=== PATIENT | male | born 1945 | race Hispanic/Latino ===

== ENCOUNTER 2018-08-04 07:15 | Day surgery (SDC) | payer OTHER ==
[2018-08-04] MEDS ORDERED: PHENYLEPHRINE 10% OPTH 5ML OPTH ONE ×2 (08:10→08:15)
[2018-08-04] MEDS ORDERED: EPINEPHRINE/PF 1 MG/ML AMP ONE (08:11)
[2018-08-04] MEDS ORDERED: DUOVISC 1 KIT OPTH ONE (08:11)
[2018-08-04] MEDS ORDERED: BALANCED SALT IRRIG PLAIN 500 ML BTL IRR ONE (08:11)
[2018-08-04] MEDS ORDERED: MOXIFLOXACIN HCL 10 DROPS/ML **OR USE OPTH ONE (08:11)
[2018-08-04] MEDS ORDERED: NS 0.9% VIAL 10 ML ONE (08:11)
[2018-08-04] MEDS ORDERED: CYCLOPENTOLATE 1% OPTH 2 ML ONE (08:13)
[2018-08-04] MEDS ORDERED: LIDOCAINE 2% MPF 5 ML VIAL ONE ×2 (08:13→08:54)
[2018-08-04] MEDS ORDERED: BUPIVACAINE 0.25% PF 30 ML VIAL ONE (08:13)
[2018-08-04] MEDS ORDERED: TETRACAINE HCL 0.5% 2ML OPTH ONE (08:13)
[2018-08-04] MEDS ORDERED: NA CHLORIDE 0.9% 500 ML ONE (08:14)
[2018-08-04] MEDS ORDERED: PHENYLEPHRINE 10% OPTH 5ML ONE (08:14)
[2018-08-04] MEDS ORDERED: CYCLOPENTOLATE 1% OPTH 2 ML OPTH ONE ×2 (08:15→08:20)
[2018-08-04] MEDS ORDERED: PROPOFOL 200 MG/20 ML VIAL IV ONE (08:54)
[2018-08-04] MEDS ORDERED: GLYCOPYRROLATE 0.2 MG/ML SYR ONE (09:37)
--- NOTE | 2018-08-04 09:53 | P.BOP ---
Preoperative diagnosis: Nuclear sclerotic cataract OD Postoperative diagnosis: Same Primary procedure: Phacoemulsification with IOL OD Estimated blood loss: None Anesthesia: Local (Subtenon's infusion with anesthesia for cataract surgery) Complications: None Implants: SN60WF +24.0 Transferred to: Other (Day surgery) Condition: Good
[2018-08-04 10:10] VITALS: BP 178/82; TEMP 96.7; O2SAT 100
--- NOTE | 2018-08-04 20:50 | OP ---
Date of Procedure: 08/04/2018 Surgeon: Melida Cazares MD Anesthesiologist: Dexter Al CRNA and Serge Morin MD. Preoperative Diagnosis: Nuclear sclerotic cataract, right eye. Operation Performed: Phacoemulsification with intraocular lens implant, right eye. Anesthesia: Per cataract surgery. Complications: None. Description Of Procedure: In day surgery, the patient was prepped with Betadine and draped. A conjunctival incision was made in the inferior nasal quadrant with Tracee scissors. A sub-Tenon block consisting of a 1:1 mixture of 2% Xylocaine and 0.25% bupivacaine was placed through the conjunctival incision with a blunt cannula. A Honan balloon was placed over the eye and the patient was transferred to the operating room. In the operating room the patient was prepped and draped in the usual sterile fashion for ophthalmic surgery. A lid speculum was placed in the right eye. Two paracentesis sites were made superiorly and inferiorly in the limbal cornea. Viscoat was placed in the anterior chamber and a crescent blade was used to make a corneal groove and tunnel, and a keratome was used to enter the anterior chamber. Provisc was placed in the anterior chamber and a 360 degree capsulotomy was performed with a cystitome. The lens was hydrodissected with BSS and rotated freely. The lens was removed with a stop and chop technique. 17.04 phaco CDE was used to remove the lens. Residual cortex was removed with the irrigation and aspiration. Provisc was placed in the capsular bag. A SN60WF +24.0 lens was placed in the capsular bag without complications. Irrigation and aspiration were used to remove residual viscoelastic. The paracentesis sites were hydrated with BSS. The wound and paracentesis sites were inspected and found to be watertight. Vigamox 0.07 cc was placed intracamerally at the end of the procedure. The eye was irrigated with balanced salt solution. The eye was patched with a soft cotton patch and Alva metal shield. The patient was returned to day surgery in good condition. Comments: Epinephrine 1:5000 was placed in the anterior chamber prior to Viscoat. Discharge Instructions: Mr. Giles is discharged to home in good condition. He is to follow up with Dr. Cazares at 3 today and then in the morning. DEVON/RICHA Voice ID: [id number] Report ID: [id number] MTDD
== END 2018-08-04 10:25 | disposition home or self-care (01) ==
LOC: OR 07:15
PROVIDERS: ATTEND Ophthalmology Retina Specialist
PROC: 08RJ3JZ Replacement of Right Lens with Synthetic Substitute, Percutaneous Approach (ICD-10-PCS; principal; 2018-08-04 09:05)
DX: H25.11 Age-related nuclear cataract, right eye (principal); H40.2230 Chronic angle-closure glaucoma, bilateral, stage unspecified; H04.123 Dry eye syndrome of bilateral lacrimal glands; I10 Essential (primary) hypertension; Z88.6 Allergy status to analgesic agent; Z87.891 Personal history of nicotine dependence; Z86.73 Personal history of transient ischemic attack (TIA), and cerebral infarction without residual deficits; Z83.3 Family history of diabetes mellitus
CPT/HCPCS: 66984; J0171; J2704; V2630

== ENCOUNTER 2018-10-14 11:35 | Observation (INO) | payer OTHER ==
[2018-10-14 13:18] VITALS: BMI 31.2
[2018-10-14 15:32] LABS: Absolute Lymphocytes (CBC) 1.9 K/uL (0.7-4.9); Absolute Monocytes 0.4 K/uL (0.1-1.3); Absolute Neutrophil 2.6 K/uL (1.8-8.0); Basophils % 0.9 % (0-1.3); Eosinophils % 2.5 % (0-4.4); Hematocrit 28.3 % (39.6-49.0); Lymphocytes % 37.9 % (15.3-44.8); MPV 8.2 fL (7.6-11.3); RBC Red Blood Cell Count 4.01 M/uL (4.33-5.43)
[2018-10-14 15:50] LABS: Albumin 3.6 g/dL (3.4-5.0); Bilirubin Total 0.2 mg/dL (0.2-1.0); Potassium 4.2 mmol/L (3.5-5.1); Protein, Total 7.1 g/dL (6.4-8.2)
[2018-10-14 16:59] LABS: Urine Appearance CLEAR; Urine Bilirubin NEGATIVE (NEG); Urine Blood NEGATIVE (NEG); Urine Color YELLOW; Urine Glucose NEGATIVE (NEG); Urine Protein NEGATIVE (NEG); Urine Urobilinogen 0.2 mg/dL (0.2-1.0)
[2018-10-14] MEDS: NACHLORIDE 0.45% 1,000 ML IV SCH (17:01)
--- NOTE | 2018-10-14 17:16 | RAD REPORT ---
EXAM DESCRIPTION: CT - Abdomen Pelvis W Contrast - 10/14/2018 4:45 pm CLINICAL HISTORY: Abdominal pain, left flank pain, history of gastric ulceration COMPARISON: CT May 2013 and January 2008 TECHNIQUE: Biphasic, helical CT imaging of the abdomen and pelvis was performed following 100 ml non -ionic IV contrast. Oral contrast was given. All CT scans are performed using dose optimization technique as appropriate and may include automated exposure control or mA/KV adjustment according to patient size. FINDINGS: No acute lung base finding. There is a small granuloma posterior gutter on the right and s mall calcified plaque posterior left. Heart size is upper normal. No pericardial thickening or effusi on. Liver shows a mild diffuse fatty infiltration pattern no focal liver lesion or capsular nodularity. N o gallbladder or biliary tree abnormality. No splenic abnormality seen. No acute pancreatic or peripa ncreatic process seen. Slightly nodular portion of the pancreatic parenchyma abutting the duodenal C- loop has not changed back to 2007. Symmetric renal function is seen with no hydronephrosis or suspicious renal mass. No pyelonephritis o r acute parenchymal process. No bladder abnormalities. No acute adrenal finding. Patient has a 2.6 ce ntimeter cyst in the anterior mid left kidney. This has increased in size over this serial studies bu t shows no worrisome or aggressive characteristics. Incidental note made of retroaortic left renal ve in. No significant prostate or seminal vesicle finding. No dilated bowel loops or bowel wall thickening. Appendix is normal. Patient has moderately prominent diverticulosis in the tortuous sigmoid colon. No acute or active colon process identifiable. No free air, free fluid or inflammatory stranding. No hernia, mass or bulky lymphadenopathy. Disc and bone degenerative changes are present. This is most notable at L5-S1. No acute or pathologic bone process seen. IMPRESSION: No obstructing calculus, mass or other abnormality to explain left flank pain symptoms. Patient has moderate sigmoid diverticulosis but no diverticulitis or acute GI process. Mild fatty infiltration pattern to the liver.
[2018-10-14 17:34] LABS: Urine Microscopic Reflex NO UMIC
[2018-10-14] MEDS ORDERED: ATORVASTATIN 20 MG TAB PO SCH (21:00)
[2018-10-14] MEDS ORDERED: HOME MED 1 EA UNK (Travoprost (Benzalkonium) [Travatan 0.004% Eye Drop] 1 GTT) EACH EYE SCH (21:00)
[2018-10-14] MEDS ORDERED: HOME MED 1 EA UNK (Cyclosporine [Restasis] 1 DROP) EACH EYE SCH (21:00)
[2018-10-14] MEDS ORDERED: HOME MED 1 EA UNK (Olmesartan Medoxomil [Olmesartan Medoxomil] 40 MG) PO SCH (21:00)
[2018-10-15 01:04] VITALS: O2SAT 99
[2018-10-15] MEDS: NACHLORIDE 0.45% 1,000 ML IV SCH (01:31)
[2018-10-15] MEDS ORDERED: VALSARTAN 80 MG TAB PO SCH (09:00)
[2018-10-15] MEDS ORDERED: CLOPIDOGREL 75 MG TABLET PO SCH (09:00)
[2018-10-15 10:18] VITALS: BP 142/63; TEMP 97.9
--- NOTE | 2018-10-15 19:12 | HP ---
Date of Admission: 10/14/2018 Chief Complaint: Left lower quadrant pain. History Of Present Illness: A 73-year-old male was brought to the office with left lower quadrant pa in and tenderness. The patient initially was thought to have diverticulitis. After admission, daryl claudio had a CAT scan. There was no evidence of diverticulitis. However, he had anemia, 8.8 g. The pat ient denies any fresh blood seen with the stools. The patient claims to have had a colonoscopy 3 yea rs ago. Past Medical History: Positive for hypertension, osteoarthritis, history of TIA. Family History: Blood pressure problem. Allergies: ASPIRIN. Review of Systems: No chest pain or shortness of breath. Physical Examination: General: Revealed a 73-year-old male, in mild pain. HEENT: Otherwise negative. Neck: Supple. JVD negative. Chest: Clear. Heart: Regular. Abdomen: Soft, except for left lower quadrant tenderness. No palpable mass. Extremities: No edema. Laboratory Data: Hemoglobin 8.8. Iron low at 16. B12 level normal. Assessment: 1.Left lower quadrant pain. 2.Anemia, moderate. 3.Hypertension. 4.Osteoarthritis. 5.History of transient ischemic attack. Plan: The patient does not have any active infection. He will be discharged. He is going to need G I workup for his iron deficiency anemia. This was explained to the family as well as the patient. H e will be given iron supplements for the time being and outpatient workup will be arranged. ADALID/RICHA Voice ID: [id number]
== END 2018-10-15 10:36 | disposition home or self-care (01) ==
LOC: 2ND 12:44
PROVIDERS: ADMIT Internal Medicine; ATTEND Internal Medicine
DX: R10.32 Left lower quadrant pain (principal); D64.9 Anemia, unspecified; I10 Essential (primary) hypertension; M19.90 Unspecified osteoarthritis, unspecified site; Z86.73 Personal history of transient ischemic attack (TIA), and cerebral infarction without residual deficits; Z88.6 Allergy status to analgesic agent
CPT/HCPCS: 85025; 36415; 87493; 81003; 82607; 83540; 80053; 84466; 74177; Q9967; G0378 ×2

== ENCOUNTER 2019-10-21 08:53 | Emergency (ER) | payer OTHER ==
--- OUTSIDE RECORDS SUMMARY | 2019-10-21 08:56 | XMS REPORT ---
:1945 [facility] Address [address] [place] [address] Dr. Strickland [address] [place] [address] Care Team Providers Name Role Phone Unavailable Unavailable Unavailable Problems This patient has no known problems. Allergies, Adverse Reactions, Alerts This patient has no known allergies or adverse reactions. Medications This patient has no known medications.
--- OUTSIDE RECORDS SUMMARY | 2019-10-21 08:56 | XMS REPORT | Summary of Care ---
:1945 Author Organization [facility] - Health Address [address] [place] [address] Care Team Providers Name Role Phone Willy Montez MD Primary Care Provider Encounter Details Date Type Department Care Team Description 04/22/2019 Orders Only [facility] Doctor Unassigned, No [address] [facility] [place] [address] [address] [place] [address] Allergies No Known Allergiesdocumented as of this encounter (statuses as of 04/23/2019) Medications Medication Sig Dispensed Refills Start Date End Date Status atorvastatin 20 mg Take 20 mg by 0 Active tablet mouth at bedtime. clopidogrel 75 mg tablet Take 75 mg by 0 Active mouth daily. valsartan 320 mg tablet Take 320 mg by 0 Active mouth daily. documented as of this encounter (statuses as of 04/23/2019) Active Problems No known active problemsdocumented as of this encounter (statuses as of 2018) Social History Tobacco Use Types Packs/Day Years Used Date Former Smoker Smokeless Tobacco: Never Used Sex Assigned at Date Recorded Not on file Job Start Date Occupation Industry Not on file Not on file Not on file Travel History Travel Start Travel End No recent travel history available. documented as of this encounter Last Filed Vital Signs Not on filedocumented in this encounter Plan of Treatment Health Maintenance Due Date Last Done Comments DTaP,Tdap,and Td Vaccines (1 - Tdap) 1962 COLONOSCOPY 1993 Zoster Recombinant Vaccine (SHINGRIX) (1 of 2) 1993 LUNG CANCER SCREEN: Recommended for age 55-80 with 30 + 1998 pack year history Medicare Wellness Visit 2008 PNEUMOCOCCAL VACCINES 65+ (1 of 2 - PCV13) 2008 INFLUENZA VACCINE (#1) 2019 documented as of this encounter Procedures Procedure Name Priority Date/Time Associated Diagnosis DAY SURGERY - ADC Routine 04/22/2019 12:01 AM CDT documented in this encounter Results Not on filedocumented in this encounter Insurance Payer Benefit Plan / Subscriber ID Effective Dates Phone Address Type Group MEDICARE MEDICARE PART xxxxxxxxxxx 2008-Tonya [phone] [address] Medicare [address] [place] [id number] [place] [id number] documented as of this encounter
--- OUTSIDE RECORDS SUMMARY | 2019-10-21 08:56 | XMS REPORT | Summary of Care ---
:1945 Author Organization [facility] Address [address] [place] [address] Care Team Providers Name Role Phone Willy Montez MD Primary Care Provider Reason for Visit Auth/Cert Status Reason Specialty Diagnoses / Procedures Referred By Contact Referred To Contact Surgery Diagnoses Iron deficiency anemia secondary to blood loss (chronic) Anemia, Diverticulosis D50.0 (ICD-10-CM) - Iron deficiency anemia secondary to blood loss (chronic) Adc Pre/Pacu/Post Procedures IN EGD TRANSORAL BIOPSY SINGLE/MULTIPLE ESOPHAGOGASTRODUODENOSCOPY 05016 - [place] EGD TRANSORAL BIOPSY SINGLE/MULTIPLE [address] [place] [address] [place] [address] Encounter Details Date Type Department Care Team Description 04/22/2019 Hospital Encounter [facility] [address] [facility] [address] [facility] [place] [address] [id number] [place] [id number] Allergies No Known Allergiesdocumented as of this encounter (statuses as of 04/22/2019) Medications Medication Sig Dispensed Refills Start Date End Date Status atorvastatin 20 mg Take 20 mg by 0 Active tablet mouth at bedtime. clopidogrel 75 mg tablet Take 75 mg by 0 Active mouth daily. valsartan 320 mg tablet Take 320 mg by 0 Active mouth daily. documented as of this encounter (statuses as of 04/22/2019) Active Problems No known active problemsdocumented as [...] of this encounter Last Filed Vital Signs Vital Sign Reading Time Taken Comments Blood Pressure 140/73 04/22/2019 8:42 AM CDT Pulse 56 04/22/2019 8:42 AM CDT Temperature 36.3 C (97.4 F) 04/22/2019 8:27 AM CDT Respiratory Rate 16 04/22/2019 8:42 AM CDT Oxygen Saturation 99% 04/22/2019 8:42 AM CDT Inhaled Oxygen Concentration - - Weight 91.2 kg (201 lb) 04/17/2019 11:00 AM CDT Height 162.6 cm (5' 4") 04/17/2019 11:00 AM CDT Body Mass Index 34.5 04/17/2019 11:00 AM CDT documented in this encounter Discharge Instructions Va Richards RN - 04/22/2019EGD DISCHARGE INSTRUCTIONS 1. Do not eat or drink until the sensation in your throat returns. Test your ability to drink withwater before eating solids. Lozenges are helpful for throat tenderness. 2. DO NOT DRIVE or operate machinery for the rest of the day. 3. Mild abdominal discomfort may result from procedure, but this should disappear within several hours. Notify your physician/nurse if you have persistent pain for more than 6 hours. Tenderness or abdominal distention. 4. Belching or passing gas per rectum frequently occurs during the first few hours after the examination. Walking will often help relieve distention or gas pains. 5. Notify your physician/nurse if your heart rate becomes unusually rapid, if you experience shortness of breath, dizziness fever greater than 101.0F.; or vomiting blood or experience chest pains or have any concerns at all. 6. Tenderness may occur in vein where medication was given. Notify your physician /nurse should fever, swelling, redness of the arm/hand, or pain in the armpit occurs. 7. Many patients feel quite tired following this procedure. You should rest and recuperate for several hours. 8. Continue to take all medications as prescribed until your follow up appointment. 9. Ask nurse for assistance in ambulating. 10. If you cannot reach your physician for problems go to the nearest emergency room. documented in this encounter Plan of Treatment Name Type Priority Associated Diagnoses Order Schedule EKG-12 LEAD ROUTINE HEART STATION Routine ONCE for 1 Occurrences starting 04/22/2019 until 04/22/2019 SURGICAL PATHOLOGY LAB Routine ONCE for 1 EXAM Occurrences starting 04/22/2019 Health Maintenance Due Date Last Done Comments [...] Procedures Procedure Name Priority Date/Time Associated Diagnosis Comments EGD (ENDO) Routine 04/22/2019 7:55 AM CDT documented in this encounter Results Not on filedocumented in this encounter Administered Medications Medication Order MAR Action Action Date Dose Rate Site FENTanyl PF (SUBLIMAZE (PF)) injection 25 mcg 25 mcg, Slow IV Push, Q5MIN PRN, 4 doses, Starting Sat04/22/19 at 0819, Until Discontinued, Routine, Pain (scale 4-6), PACU FENTanyl PF (SUBLIMAZE (PF)) injection 25 mcg 25 mcg, Slow IV Push, Q5MIN PRN, 4 doses, Starting Sat04/22/19 at 0819, Until Discontinued, Routine, Pain (scale 7-10), PACU ondansetron (ZOFRAN (PF)) injection 4 mg 4 mg, Slow IV Push, PRN, 1 dose, Starting Sat04/22/19 at 0819, Until Discontinued, Routine, Nausea and Vomiting (N/V), PACU simethicone (GAS RELIEF) 40 mg/0.6 mL drops Given 04/22/2019 8:01 AM CDT 0.6 mL PRN, Starting Sat04/22/19 at 0801, Until Discontinued, Routine, Intra-op water for irrigation irrigation solution Given 04/22/2019 8:02 AM CDT 1,000 mL PRN, Starting Sat04/22/19 at 0802, Until Discontinued, Routine, Intra-op Medication Order MAR Action Action Date Dose Rate Site lactated ringers IV infusion New Bag 04/22/2019 6:42 AM CDT 1,000 mL 20 mL /hr 1,000 mL at 20 mL/hr, 1,000 mL, IV Infusion, ONCE, 1 dose, 04/22/19 at 0630, Routine, DSU Pre-op documented in this encounter Insurance Payer Benefit Plan / Subscriber ID Effective Dates Phone Address Type Group MEDICARE MEDICARE PART xxxxxxxxxxx 2008-Tonya [phone] [address] Medicare A & B nt 2 [id number] [place] [id number] documented as of this encounter
--- OUTSIDE RECORDS SUMMARY | 2019-10-21 08:56 | XMS REPORT | Summary of Care ---
:1945 Author Organization [facility] - Health Address [address] [place] [address] Care Team Providers Name Role Phone Willy Montez MD Primary Care Provider Reason for Visit Auth/Cert Status Reason Specialty Diagnoses / Procedures Referred By Contact Referred To Contact Surgery Diagnoses Iron deficiency anemia secondary to blood loss (chronic) Anemia, Diverticulosis D50.0 (ICD-10-CM) - Iron deficiency anemia secondary to blood loss (chronic) Adc Pre/Pacu/Post Procedures [place] EGD TRANSORAL BIOPSY SINGLE/MULTIPLE ESOPHAGOGASTRODUODENOSCOPY [address] - [place] EGD TRANSORAL BIOPSY SINGLE/MULTIPLE [address] [facility] [place] Felder [address] Encounter Details Date Type Department Care Team Description 04/22/2019 Anesthesia [facility] Jaden Messer [facility] [address] [facility] [place] [address] [place] [address] [phone] Allergies No Known Allergiesdocumented as of this [...] (#1) 2019 documented as of this encounter Results Not on filedocumented in this encounter Administered Medications Medication Order MAR Action Action Date Dose Rate Site lactated ringers IV infusion New Bag 04/22/2019 6:42 AM CDT CONTINUOUS PRN, Starting Sat04/22/19 at 0642, Until Sat04/22/19 at 0814, Routine, Intra-op lidocaine 1% (XYLOCAINE) 100 mg/10 mL (1 %) Given 04/22/2019 7:59 AM CDT 10 mL injection ONCE INTRA PROCEDURE, Starting Sat04/22/19 at 0759, Until Sat04/22/19 at 0814, Routine, Intra-op propofol injection Given 04/22/2019 8:00 AM CDT 90 mg ONCE INTRA PROCEDURE, Starting Sat04/22/19 at 0800, Until Sat04/22/19 at 0814, Routine, Intra-op documented in this encounter Insurance Payer Benefit Plan / Subscriber ID Effective Dates Phone Address Type Group MEDICARE MEDICARE PART xxxxxxxxxxx 2008-Prese [phone] [address] Medicare A & B 2 [id number] [place] [id number] documented as of this encounter
--- NOTE | 2019-10-21 11:30 | ER ---
Nurse's Notes [facility] Name: Oleg Giles Age: 74 yrs Sex: Male : 1945 Arrival Date: 10/21/2019 Time: 08:55 Bed 15 Private MD: Willy Deshpande R Diagnosis: Perineum Bleeding - Resolved Presentation: 10/20 09:30 Chief complaint: Patient states: Took a shower this morning and noticed blood in ss underwear. Pt states when he got out of the shower he noticed blood on testicles. noticed wetness near feet after urinating and noticed blood. pt reports no trouble urinating. Pt also reports feeling light headed. Coronavirus screen: The patient has NOT traveled to a country currently being monitored by the [facility] within the last 14 days. The patient has NOT had contact with any known and/or suspected case of coronavirus. Proceed with normal triage procedures. Ebola Screen: Patient negative for fever greater than or equal to 101.5 degrees Fahrenheit, and additional compatible Ebola Virus Disease symptoms Patient denies exposure to infectious person. Patient denies travel to an Ebola-affected area in the 21 days before illness onset. No symptoms or risks identified at this time. Initial Sepsis Screen: Does the patient meet any 2 criteria? No. Patient's initial sepsis screen is negative. Does the patient have a suspected source of infection? No. Patient's initial sepsis screen is negative. Risk Assessment: Do you want to hurt yourself or someone else? Patient reports no desire to harm self or others. 09:30 Method Of Arrival: Ambulatory 09:30 Method Of Arrival: Ambulatory 09:30 Acuity: ALEXANDREA 3 ss Triage Assessment: 09:30 General: Appears in no apparent distress. comfortable, Behavior is calm, cooperative, bp appropriate for age. Pain: Denies pain. EENT: No deficits noted. Neuro: No deficits noted. Cardiovascular: No deficits noted. Respiratory: No deficits noted. GI: No signs and/or symptoms were reported involving the gastrointestinal system. : Reports HEMATURIA. Derm: No deficits noted. Musculoskeletal: No deficits noted. Historical: - Allergies: 11:27 Aspirin; bp - Immunization history:: Adult Immunizations unknown. - Social history:: Smoking status: Patient denies any tobacco usage or history of. Screenin:30 Abuse screen: Denies threats or abuse. Denies injuries from another. Nutritional bp screening: No deficits noted. 09:30 Tuberculosis screening: No symptoms or risk factors identified. Fall Risk None bp identified. Assessment: 09:30 General: SEE TRIAGE NOTE. bp 11:29 Reassessment: MD AT B/S FOR EVAL. NO HEMATURIA NOTED IN UOP, NO GENITOURINARY S/S. bp 11:49 Reassessment: PT D/C HOME AMBULATORY, DX WITH RESOLVED BLEEDING. bp Vital Signs: 09:30 BP 142 / 77; Pulse 79; Resp 18; Temp 97.6; Pulse Ox 99% on R/A; Weight 86.18 kg (R); ss Height 5 ft. 5 in. (165.10 cm); Pain 0/10; 11:30 BP 139 / 75; Pulse 75; Resp 17; Temp 97.8; Pulse Ox 99% ; bp 09:30 Body Mass Index 31.62 (86.18 kg, 165.10 cm) ED Course: 08:55 Patient arrived in ED. mr 08:56 Willy Deshpande MD is Private Physician. mr 09:30 Arm band placed on. bp 09:30 Patient has correct armband on for positive identification. Bed in low position. Call bp light in reach. Side rails up X2. Adult w/ patient. 09:34 Triage completed. ss 10:33 Korey Melgar MD is Attending Physician. kdr 10:39 Taz Vega, DI is Primary Nurse. bp 11:27 Willy Deshpande MD is Referral Physician. kdr 11:30 No provider procedures requiring assistance completed. Patient did not have IV access bp during this emergency room visit. Administered Medications: No medications were administered Outcome: 11:29 Discharge ordered by . kdr 11:49 Discharged to home ambulatory. bp 11:49 Condition: stable 11:49 Discharge instructions given to patient, Instructed on discharge instructions, follow up and referral plans. medication usage, Demonstrated understanding of instructions, follow-up care. 11:50 Patient left the ED. bp Signatures: Korey Melgar MD MD kdr Rivera, Lyric mr LubinLora, RN RN ss Taz Vega RN RN bp
--- NOTE | 2019-10-21 11:31 | EDPHYS ---
Physician Documentation [facility] Name: Oleg Giles Age: 74 yrs Sex: Male : 1945 Arrival Date: 10/21/2019 Time: 08:55 Bed 15 Private MD: Willy Deshpande R ED Physician Korey Melgar HPI: 10/20 12:58 This 74 yrs old Male presents to ER via Ambulatory with complaints of bleeding kdr from his perineal area - resolved. 12:58 The patient presents with The patient states that he was in the shower and noticed kdr profuse BRB from his perineal area.. 10/21 07:07 Onset: The symptoms/episode began/occurred acutely, just prior to arrival. Modifying kdr factors: The symptoms are alleviated by nothing, the symptoms are aggravated by nothing. Associated signs and symptoms: The patient has no apparent associated signs or symptoms. Severity of symptoms: At their worst the symptoms were mild, in the emergency department the symptoms have resolved. The patient has not experienced similar symptoms in the past. The patient has not recently seen a physician. Historical: - Allergies: 10/20 11:27 Aspirin; bp - Immunization history:: Adult Immunizations unknown. - Social history:: Smoking status: Patient denies any tobacco usage or history of. ROS: 10/21 07:13 Constitutional: Negative for fever, chills, and weight loss, Eyes: Negative for injury, kdr pain, redness, and discharge, ENT: Negative for injury, pain, and discharge, Neck: Negative for injury, pain, and swelling, Cardiovascular: Negative for chest pain, palpitations, and edema, Respiratory: Negative for shortness of breath, cough, wheezing, and pleuritic chest pain, Abdomen/GI: Negative for abdominal pain, nausea, vomiting, diarrhea, and constipation, Back: Negative for injury and pain, : Negative for injury, bleeding, discharge, and swelling, MS/Extremity: Negative for injury and deformity, Skin: Negative for injury, rash, and discoloration, Neuro: Negative for headache, weakness, numbness, tingling, and seizure activity. Psych: Negative for depression, anxiety, suicide ideation, homicidal ideation, and hallucinations, Allergy/Immunology: Negative for hives, rash, and allergies, Endocrine: Negative for neck swelling, polydipsia, polyuria, polyphagia, and marked weight changes, Hematologic/Lymphatic: Negative for swollen nodes, abnormal bleeding, and unusual bruising. Exam: 07:13 Constitutional: This is a well developed, well nourished patient who is awake, alert, kdr and in no acute distress. Head/Face: Normocephalic, atraumatic. Eyes: Pupils equal round and reactive to light, extra-ocular motions intact. Lids and lashes normal. Conjunctiva and sclera are non-icteric and not injected. Cornea within normal limits. Periorbital areas with no swelling, redness, or edema. Neck: Trachea midline, no thyromegaly or masses palpated, and no cervical lymphadenopathy. Supple, full range of motion without nuchal rigidity, or vertebral point tenderness. No Meningismus. Chest/axilla: Normal chest wall appearance and motion. Nontender with no deformity. No lesions are appreciated. Cardiovascular: Regular rate and rhythm with a normal S1 and S2. No gallops, murmurs, or rubs. Normal PMI, no JVD. No pulse deficits. Respiratory: Lungs have equal breath sounds bilaterally, clear to auscultation and percussion. No rales, rhonchi or wheezes noted. No increased work of breathing, no retractions or nasal flaring. Abdomen/GI: Soft, non-tender, with normal bowel sounds. No distension or tympany. No guarding or rebound. No evidence of tenderness throughout. Back: No spinal tenderness. No costovertebral tenderness. Full range of motion. Male : Normal genitalia with no discharge or lesions. Skin: Warm, dry with normal turgor. Normal color with no rashes, no lesions, and no evidence of cellulitis. MS/ Extremity: Pulses equal, no cyanosis. Neurovascular intact. Full, normal range of motion. Neuro: Awake and alert, GCS 15, oriented to person, place, time, and situation. Cranial nerves II-XII grossly intact. Motor strength 5/5 in all extremities. Sensory grossly intact. Cerebellar exam normal. Normal gait. Psych: Awake, alert, with orientation to person, place and time. Behavior, mood, and affect are within normal limits. Vital Signs: 10/20 09:30 BP 142 / 77; Pulse 79; Resp 18; Temp 97.6; Pulse Ox 99% on R/A; Weight 86.18 kg (R); ss Height 5 ft. 5 in. (165.10 cm); Pain 0/10; 11:30 BP 139 / 75; Pulse 75; Resp 17; Temp 97.8; Pulse Ox 99% ; bp 09:30 Body Mass Index 31.62 (86.18 kg, 165.10 cm) ss MDM: 11:29 Patient medically screened. kdr 10/21 07:13 Data reviewed: vital signs, nurses notes. Counseling: I had a detailed discussion with kdr the patient and/or guardian regarding: the historical points, exam findings, and any diagnostic results supporting the discharge/admit diagnosis, the need for outpatient follow up. Administered Medications: No medications were administered Disposition: 10/21/19 11:29 Discharged to Home. Impression: Perineum Bleeding - Resolved. - Condition is Stable. - Blank Diagnosis Outline, Medication Reconciliation Form, Thank You Letter, Antibiotic Education, Prescription Opioid Use form. - Follow up: Willy Deshpande MD; When: 2 - 3 days; Reason: If symptoms return, Further diagnostic work-up, Recheck today's complaints, Continuance of care, Re-evaluation by your physician. - Problem is new. - Symptoms are resolved. Signatures: Korey Melgar MD MD kdr Taz Vega, RN RN bp Corrections: (The following items were deleted from the chart) 10/20 11:50 11:29 10/21/2019 11:29 Discharged to Home. Impression: Perineum Bleeding - Resolved. bp Condition is Stable. Forms are Medication Reconciliation Form, Thank You Letter, Antibiotic Education, Prescription Opioid Use. Follow up: Willy Deshpande; When: 2 - 3 days; Reason: If symptoms return, Further diagnostic work-up, Recheck today's complaints, Continuance of care, Re-evaluation by your physician. Problem is new. Symptoms are resolved. kdr
[2019-10-21 11:57] VITALS: O2SAT 99
[2019-10-21 11:58] VITALS: BP 139/75; TEMP 97.8
[2019-10-21] MEDS ORDERED: LIDOCAINE 1% 20 ML MDV ONE (13:49)
== END 2019-10-21 11:50 | disposition home or self-care (01) ==
LOC: ER 08:53
DX: N50.1 Vascular disorders of male genital organs (principal)
CPT/HCPCS: 99281

== ENCOUNTER 2021-03-06 15:03 | Emergency (ER) | payer OTHER ==
--- OUTSIDE RECORDS SUMMARY | 2021-03-06 15:06 | XMS REPORT | Continuity of Care Document ---
:1945 Author Organization [facility] t Address [address] [place] [address] Dr. Zamora. [address] [place] [address] Care Team Providers Name Role Phone Herb Nath MD Attending Clinician Rocio ELLIS Attending Clinician Doctor Unassigned, Name Attending Clinician Unavailable Herb Nath MD Admitting Clinician Problems This patient has no known problems. Allergies, Adverse Reactions, Alerts This patient has no known allergies or adverse reactions. Medications This patient has no known medications. Procedures This patient has no known procedures. Encounters Start End Encounter Admission Attending Care Care Encounter Source Date/Time Date/Time Type Type Clinicians Facility Department ID 2019-04-22 2019-04-22 [facility] [id number] 06:15:00 08:56:00 Encounter Katy mena [id number] [place] [id number] Surgical [id number] [place] 071 2019-04-22 2019-04-22 Anesthesia [facility] [id number] 07:54:00 08:13:00 Jaden Loyola [id number] [place] [id number] Surgical [id number] [place] 020 2019-04-22 2019-04-22 Allen MURILLO [id number] 00:00:00 00:00:00 Only UnassANA MARIA maciel [id number] [place] [facility] [id number] Results This patient has no known results.
[2021-03-06 18:02] LABS: Absolute Lymphocytes (CBC) 2.2 K/uL (0.7-4.9); Basophils % 0.7 % (0-1.3); Hematocrit 30.5 % (39.6-49.0); Lymphocytes % 30.4 % (15.3-44.8); MPV 7.5 fL (7.6-11.3); RBC Red Blood Cell Count 4.44 M/uL (4.33-5.43)
[2021-03-06 18:05] LABS: Protime INR 1.09
--- NOTE | 2021-03-06 18:10 | RAD REPORT ---
EXAM DESCRIPTION: CTAbdomen Pelvis W Contrast - 03/06/2021 6:04 pm CLINICAL HISTORY: Abdominal pain. ABD PAIN COMPARISON: Abdomen Pelvis W Contrast dated 10/14/2018; CT ABD PELVIS W CONTRAST dated 05/22/2013; C T ABD PELVIS W CONTRAST dated 01/24/2008 TECHNIQUE: Biphasic CT imaging of the abdomen and pelvis was performed with 100 ml non-ionic IV cont rast. All CT scans are performed using dose optimization technique as appropriate and may include automated exposure control or mA/KV adjustment according to patient size. FINDINGS: The lung bases are clear.Calcified pleural plaques are noted on the left. The liver, spleen, pancreas, adrenal glands and kidneys are within normal limits. Benign left renal c yst anteriorly measuring 3 cm. No bowel obstruction, free air, free fluid or abscess. Prominent diverticulosis of the sigmoid colon is present particularly in the left lower quadrant. No CT finding to indicate diverticulitis. The anabel endix is normal. No evidence of significant lymphadenopathy. Mild lumbosacral degenerative changes. IMPRESSION: No acute intra-abdominal or pelvic finding. Sigmoid diverticulosis coli is present without diverticulitis. Evidence of prior asbestos exposure.
[2021-03-06] MEDS ORDERED: ONDANSETRON 4 MG/2 ML VIAL ONE (18:16)
[2021-03-06] MEDS ORDERED: NA CHLORIDE 0.9% 250 ML ONE (18:16)
[2021-03-06] MEDS ORDERED: FAMOTIDINE 20 MG/2 ML VIAL IV ONE (18:16)
[2021-03-06 18:26] LABS: ALT/SGPT 27 U/L (12-78); AST/SGOT 10 U/L (15-37); Alkaline Phosphatase 79 U/L (45-117); BUN Blood Urea Nitrogen 14 mg/dL (7-18); Bicarbonate 25 mmol/L (21-32); Bilirubin Direct 0.1 mg/dL (0-0.2); Bilirubin Total 0.4 mg/dL (0.2-1.0); Glucose Level 101 mg/dL (74-106); Sodium Level 141 mmol/L (136-145)
[2021-03-06 18:27] LABS: Albumin 3.7 g/dL (3.4-5.0); Lipase 103 U/L (73-393); Magnesium 2.4 mg/dL (1.8-2.4); NT PRO-BNP 220 pg/mL (<450); Troponin (Emerg Dept Use Only) < 0.02 ng/mL (0.0-0.045)
--- NOTE | 2021-03-06 18:57 | RAD REPORT ---
EXAM DESCRIPTION: RAD - Chest Single View - 03/06/2021 6:20 pm CLINICAL HISTORY: ABDOMINAL DISTENTION Chest pain. COMPARISON: CHEST PA AND LAT 2 VIEW dated 05/22/2013; CHEST SINGLE VIEW dated 08/07/2010; CHEST SINGL E VIEW dated 01/24/2008; CHEST SINGLE VIEW dated 02/27/2007 FINDINGS: Portable technique limits examination quality. Mild interstitial pulmonary edema. The heart is moderately enlarged. No displaced fractures. IMPRESSION: Mild CHF.
--- NOTE | 2021-03-06 19:04 | EDPHYS ---
Physician Documentation [facility] Name: Oleg Giles Age: 75 yrs Sex: Male : 1945 Arrival Date: 03/06/2021 Time: 15:08 Bed 7 Private MD: Willy Deshpande R ED Physician Korey Melgar HPI: 03/06 18:19 This 75 yrs old Male presents to ER via Ambulatory with complaints of kdr Abdominal Pain, for abd ct. 18:19 The patient presents with abdominal pain in the lower abdomen, Low abdominal and back kdr pain. Onset: The symptoms/episode began/occurred gradually, 4 day(s) ago. The symptoms do not radiate. Associated signs and symptoms: Pertinent positives: nausea, Dark stools recently. The symptoms are described as achy, crampy, intermittent. 03/07 07:03 Modifying factors: The symptoms are alleviated by nothing, the symptoms are aggravated kdr by movement, touching the area. Severity of pain: At its worst the pain was mild in the emergency department the pain is unchanged. The patient has not experienced similar symptoms in the past. The patient has not recently seen a physician. Historical: - Allergies: 03/06 15:38 Aspirin; ca1 - PMHx: 15:38 Hypertensive disorder; Arthritis; ca1 - Immunization history:: Client reports receiving the 1st dose of the Covid vaccine, J\T\J Pneumococcal vaccine is up to date, Flu vaccine is up to date. - Social history:: Smoking status: Patient denies any tobacco usage or history of. ROS: 03/07 07:03 Constitutional: Negative for fever, chills, and weight loss, Eyes: Negative for injury, kdr pain, redness, and discharge, ENT: Negative for injury, pain, and discharge, Neck: Negative for injury, pain, and swelling, Cardiovascular: Negative for chest pain, palpitations, and edema, Respiratory: Negative for shortness of breath, cough, wheezing, and pleuritic chest pain, Back: Negative for injury and pain, : Negative for injury, bleeding, discharge, and swelling, MS/Extremity: Negative for injury and deformity, Skin: Negative for injury, rash, and discoloration, Neuro: Negative for headache, weakness, numbness, tingling, and seizure activity. Psych: Negative for depression, anxiety, suicide ideation, homicidal ideation, and hallucinations, Allergy/Immunology: Negative for hives, rash, and allergies, Endocrine: Negative for neck swelling, polydipsia, polyuria, polyphagia, and marked weight changes, Hematologic/Lymphatic: Negative for swollen nodes, abnormal bleeding, and unusual bruising. Abdomen/GI: Positive for abdominal pain, nausea, Negative for vomiting, diarrhea, constipation, abdominal cramps, abdominal distension, anorexia, dysphagia, hematemesis, black/tarry stool, rectal pain, rectal bleeding, bowel incontinence. Exam: 07:03 Constitutional: This is a well developed, well nourished patient who is awake, alert, kdr and in no acute distress. Head/Face: Normocephalic, atraumatic. Eyes: Pupils equal round and reactive to light, extra-ocular motions intact. Lids and lashes normal. Conjunctiva and sclera are non-icteric and not injected. Cornea within normal limits. Periorbital areas with no swelling, redness, or edema. Neck: Trachea midline, no thyromegaly or masses palpated, and no cervical lymphadenopathy. Supple, full range of motion without nuchal rigidity, or vertebral point tenderness. No Meningismus. Chest/axilla: Normal chest wall appearance and motion. Nontender with no deformity. No lesions are appreciated. Cardiovascular: Regular rate and rhythm with a normal S1 and S2. No gallops, murmurs, or rubs. Normal PMI, no JVD. No pulse deficits. Respiratory: Lungs have equal breath sounds bilaterally, clear to auscultation and percussion. No rales, rhonchi or wheezes noted. No increased work of breathing, no retractions or nasal flaring. Back: No spinal tenderness. No costovertebral tenderness. Full range of motion. Skin: Warm, dry with normal turgor. Normal color with no rashes, no lesions, and no evidence of cellulitis. MS/ Extremity: Pulses equal, no cyanosis. Neurovascular intact. Full, normal range of motion. Neuro: Awake and alert, GCS 15, oriented to person, place, time, and situation. Cranial nerves II-XII grossly intact. Motor strength 5/5 in all extremities. Sensory grossly intact. Cerebellar exam normal. Normal gait. Psych: Awake, alert, with orientation to person, place and time. Behavior, mood, and affect are within normal limits. 07:03 Abdomen/GI: Inspection: distension, The patient states that his abdomen is not distended or unusually large, obese Bowel sounds: active, all quadrants, diminished, Palpation: soft. Vital Signs: 03/06 15:36 BP 174 / 74; Pulse 75; Resp 18 S; Temp 98.4(O); Pulse Ox 100% on R/A; Weight 92.53 kg ca1 (R); Height 5 ft. 6 in. (167.64 cm) (R); Pain 9/10; 18:30 BP 170 / 75; Pulse 65; Resp 15; Pulse Ox 100% ; jl7 15:36 Body Mass Index 32.93 (92.53 kg, 167.64 cm) ca1 MDM: 19:03 Patient medically screened. [facility] 03/07 07:03 Data reviewed: vital signs, nurses notes, lab test result(s), radiologic studies. kdr Counseling: I had a detailed discussion with the patient and/or guardian regarding: the historical points, exam findings, and any diagnostic results supporting the discharge/admit diagnosis, lab results, radiology results, the need for outpatient follow up. 03/06 17:47 Order name: Basic Metabolic Panel; Complete Time: 18:54 [facility] 03/06 17:47 Order name: CBC with Diff [facility] 03/06 17:47 Order name: LFT's; Complete Time: 18:54 [facility] 03/06 17:47 Order name: Magnesium; Complete Time: 18:54 [facility] 03/06 17:47 Order name: NT PRO-BNP; Complete Time: 18:54 [facility] 03/06 17:47 Order name: PT-INR; Complete Time: 18:54 [facility] 03/06 17:47 Order name: Troponin (emerg Dept Use Only); Complete Time: 18:54 kdr 03/06 17:47 Order name: XRAY Chest (1 view); Complete Time: 18:59 [facility] 03/06 17:47 Order name: Lipase; Complete Time: 18:54 [facility] 03/06 17:47 Order name: CT Abd/Pelvis - IV Contrast Only; Complete Time: 18:54 kdr 03/06 18:04 Order name: CBC Smear Scan EDMS 03/06 17:47 Order name: EKG; Complete Time: 17:48 kdr 03/06 17:47 Order name: Cardiac monitoring; Complete Time: 17:56 kdr 03/06 17:47 Order name: EKG - Nurse/Tech; Complete Time: 18:33 kdr 03/06 17:47 Order name: IV Saline Lock; Complete Time: 17:56 kdr 03/06 17:47 Order name: Labs collected and sent; Complete Time: 17:56 kdr 03/06 17:47 Order name: O2 Per Protocol; Complete Time: 17:56 kdr 03/06 17:47 Order name: O2 Sat Monitoring; Complete Time: 17:56 kdr Administered Medications: 03/06 18:25 Drug: Pepcid (famotidine) 20 mg Route: IVP; Site: right antecubital; jl7 19:26 Follow up: Response: No adverse reaction jl7 18:25 Drug: NS 0.9% 250 ml Route: IV; Rate: bolus; Site: right antecubital; jl7 19:00 Follow up: Response: No adverse reaction; IV Status: Completed infusion; IV Intake: jl7 250ml 18:32 Not Given (Patient Refused): Zofran (Ondansetron) 4 mg IVP once; over 2 minutes jl7 Disposition Summary: 03/06/21 19:03 Discharge Ordered Location: Home kdr Problem: new kdr Symptoms: have improved kdr Condition: Stable kdr Diagnosis - Abdominal pain, Generalized kdr - Lower abdominal pain, unspecified kdr Followup: kdr - With: Willy Deshpande MD - When: 2 - 3 days - Reason: If symptoms return, Further diagnostic work-up, Recheck today's complaints, Continuance of care, Re-evaluation by your physician Discharge Instructions: - Discharge Summary Sheet kdr - Abdominal Pain, Adult, [id number] kdr Forms: - Medication Reconciliation Form kdr - Thank You Letter kdr Prescriptions: - dicyclomine 20 mg Oral tablet - take 1 tablet by ORAL route 3 times per day As needed; 15 tablet; Refills: 0, kdr Product Selection Permitted - Zofran 4 mg Oral Tablet - take 1 tablet by ORAL route every 4-6 hours As needed; 12 tablet; Refills: 0, kdr Product Selection Permitted - Tramadol 50 mg Oral Tablet - take 1 tablet by ORAL route every 8 hours as needed; 6 tablet; Refills: 0, kdr Product Selection Permitted Signatures: Dispatcher [employer] Korey Gomes MD MD kdr Leal, Jahala, RN RN jl7 Sarah Corona, RN RN ca1
--- NOTE | 2021-03-06 19:04 | ER ---
Nurse's Notes [facility] Name: Oleg Giles Age: 75 yrs Sex: Male : 1945 Arrival Date: 03/06/2021 Time: 15:08 Bed 7 Private MD: Willy Deshpande R Diagnosis: Abdominal pain, Generalized;Lower abdominal pain, unspecified Presentation: 03/06 15:36 Chief complaint: Patient states: Lower abdominal pain radiates to the lower back x 4 ca1 days. Denies N/V/D. Denies urinary s/s. Coronavirus screen: Client denies travel out of the [place] in the last 14 days. At this time, the client does not indicate any symptoms associated with coronavirus-19. Ebola Screen: Patient negative for fever greater than or equal to 101.5 degrees Fahrenheit, and additional compatible Ebola Virus Disease symptoms Patient denies exposure to infectious person. Patient denies travel to an Ebola-affected area in the 21 days before illness onset. No symptoms or risks identified at this time. Initial Sepsis Screen: Does the patient meet any 2 criteria? No. Patient's initial sepsis screen is negative. Does the patient have a suspected source of infection? No. Patient's initial sepsis screen is negative. Risk Assessment: Do you want to hurt yourself or someone else? Patient reports no desire to harm self or others. Onset of symptoms was March 06, 2021. 15:36 Method Of Arrival: Ambulatory ca1 15:36 Acuity: ALEXANDREA 3 ca1 Historical: - Allergies: 15:38 Aspirin; ca1 - PMHx: 15:38 Hypertensive disorder; Arthritis; ca1 - Immunization history:: Client reports receiving the 1st dose of the Covid vaccine, J\T\J Pneumococcal vaccine is up to date, Flu vaccine is up to date. - Social history:: Smoking status: Patient denies any tobacco usage or history of. Screenin:30 Abuse screen: Denies threats or abuse. Denies injuries from another. Nutritional jl7 screening: No deficits noted. Tuberculosis screening: No symptoms or risk factors identified. Fall Risk IV access (20 points). Total Orellana Fall Scale indicates No Risk (0-24 pts). Assessment: 17:30 General: Appears in no apparent distress. uncomfortable, Behavior is calm, cooperative, jl7 appropriate for age. Pain: Complains of pain in low back area Pain radiates to right lower quadrant and left lower quadrant Pain currently is 9 out of 10 on a pain scale. Neuro: Level of Consciousness is awake, alert, obeys commands, Oriented to person, place, time, situation. Cardiovascular: Patient's skin is warm and dry. Respiratory: Airway is patent Respiratory effort is even, unlabored, Respiratory pattern is regular, symmetrical. GI: Abdomen is round non-distended, Stools are reported to be normal. Last BM was March 05, 2021. Bowel sounds present X 4 quads. Abd is soft and non tender Reports indigestion, Pt reports black stool yesterday. Derm: Skin is pink, warm \T\ dry. Vital Signs: 15:36 BP 174 / 74; Pulse 75; Resp 18 S; Temp 98.4(O); Pulse Ox 100% on R/A; Weight 92.53 kg ca1 (R); Height 5 ft. 6 in. (167.64 cm) (R); Pain 9/10; 18:30 BP 170 / 75; Pulse 65; Resp 15; Pulse Ox 100% ; jl7 15:36 Body Mass Index 32.93 (92.53 kg, 167.64 cm) ca1 ED Course: 15:08 Patient arrived in ED. am2 15:08 Willy Deshpande MD is Private Physician. am2 15:38 Triage completed. ca1 15:38 Arm band placed on right wrist. ca1 17:21 Korey Melgar MD is Attending Physician. kdr 17:23 Jet Franz RN is Primary Nurse. jl7 17:30 Patient has correct armband on for positive identification. Placed in gown. Bed in low jl7 position. Call light in reach. Side rails up X 1. 17:30 Initial lab(s) drawn, by me, sent to lab. Inserted saline lock: 20 gauge in right jl7 antecubital area, using aseptic technique. Blood collected. 17:45 Served as a box liner during rectal exam. jl7 18:03 CT Abd/Pelvis - IV Contrast Only In Process Unspecified. EDMS 18:20 XRAY Chest (1 view) In Process Unspecified. EDMS 18:31 quality assurance monitor final on. Pulse ox on. NIBP on. Warm blanket given. jl7 18:35 EKG done, by ED staff, reviewed by Korey Melgar MD. [facility] 19:02 Willy Deshpande MD is Referral Physician. kdr 19:25 IV discontinued, intact, bleeding controlled, No redness/swelling at site. Pressure 7 dressing applied. Administered Medications: 18:25 Drug: Pepcid (famotidine) 20 mg Route: IVP; Site: right antecubital; 7 19:26 Follow up: Response: No adverse reaction jl7 18:25 Drug: NS 0.9% 250 ml Route: IV; Rate: bolus; Site: right antecubital; jl7 19:00 Follow up: Response: No adverse reaction; IV Status: Completed infusion; IV Intake: jl7 250ml 18:32 Not Given (Patient Refused): Zofran (Ondansetron) 4 mg IVP once; over 2 minutes [facility] Intake: 19:00 IV: 250ml; Total: 250ml. [facility] Outcome: 19:03 Discharge ordered by MD. kdr 19:25 Discharged to home ambulatory. 7 19:25 Condition: stable 19:25 Discharge instructions given to patient, Instructed on discharge instructions, follow up and referral plans. medication usage, Demonstrated understanding of instructions, follow-up care, medications, Prescriptions given X 2. 19:26 Patient left the ED. 7 Signatures: Dispatcher [employer] EDMS Korey Melgar MD MD kdr Martinez, Maria 5 Jet Franz RN RN jl7 Ria Hernandez am2 Sarah Corona RN RN ca1 Corrections: (The following items were deleted from the chart) 19:02 18:31 EKG done, by ED staff, reviewed by Korey Melgar MD jl7 jl7
[2021-03-06 19:31] VITALS: TEMP 98.4; O2SAT 100
[2021-03-06 19:34] VITALS: BP 170/75
[2021-03-06 20:17] LABS: Anisocytosis 2+; Blood Morphology Comment NOTED (NOT SEEN); Hypochromasia 1+; Platelet Estimate ADEQ; Poikilocytosis 2+; White Blood Cell Scan OK (OK)
[2021-03-06 20:18] LABS: Ovalocytes 2+
--- NOTE | 2021-03-07 07:28 | EKG ---
Test Date: 2021-03-06 Test Time: 18:21:34 Spray Applicator: NICO MEASUREMENT RESULTS: Intervals: Rate: 66 WA: 186 QRSD: 128 QT: 458 QTc: 480 [place]: P: 45 WA: 186 QRS: -10 T: 62 INTERPRETIVE STATEMENTS: Normal sinus rhythm Left ventricular hypertrophy with QRS widening Abnormal ECG Compared to ECG 08/08/2010 05:32:45 Sinus bradycardia no longer present Electronically Signed On 03-07-21 07:27:49 CDT by Jimmy Westbrook
== END 2021-03-06 19:26 | disposition home or self-care (01) ==
LOC: ER 15:03
DX: R10.84 Generalized abdominal pain (principal); M54.5 Low back pain; I10 Essential (primary) hypertension; M19.90 Unspecified osteoarthritis, unspecified site
CPT/HCPCS: 96365; 93005; 85025; 80048; 36415; 83735; 85610; 80076; 84484; 83690; 83880; 74177; 71045; 96375; 99285; Q9967; J7050; J2405

== ENCOUNTER 2021-04-28 07:04 | Emergency (ER) | payer OTHER ==
--- OUTSIDE RECORDS SUMMARY | 2021-04-28 07:06 | XMS REPORT | Continuity of Care Document ---
:1945 Author Organization [facility] t Address [address] [place] [address] Dr. Zamora. [address] [place] [address] Care Team Providers Name Role Phone Herb [...] Type Clinicians Facility Department ID 2019-04-22 2019-04-22 [facility] [id number] 06:15:00 08:56:00 Encounter Katy mena [id number] [place] [id number] Surgical [id number] [place] 071 2019-04-22 2019-04-22 Anesthesia [facility] [id number] 07:54:00 08:13:00 Jaden Loyola [id number] [place] [id number] Surgical [id number] [place] 020 2019-04-22 2019-04-22 Allen MURILLO [id number] 00:00:00 00:00:00 Only UnassANA MARIA maciel [id number] [place] [facility] [id number] [id number] Results This patient has no known results.
[2021-04-28] MEDS ORDERED: ALBUTEROL 2.5 MG/3 ML NEB SOL ONE (08:19)
[2021-04-28] MEDS ORDERED: METHYLPREDNISOLONE 125 MG INJ ONE (08:19)
[2021-04-28 08:20] LABS: ALT/SGPT 50 U/L (12-78); AST/SGOT 15 U/L (15-37); Albumin 3.6 g/dL (3.4-5.0); Alkaline Phosphatase 67 U/L (45-117); BUN Blood Urea Nitrogen 23 mg/dL (7-18); Bicarbonate 25 mmol/L (21-32); Bilirubin Direct 0.2 mg/dL (0-0.2); Bilirubin Total 0.5 mg/dL (0.2-1.0); Ferritin 11.8 ng/mL (26-388); Glucose Level 112 mg/dL (74-106); Magnesium 2.5 mg/dL (1.8-2.4); NT PRO-BNP 4595 pg/mL (<450); Potassium 3.4 mmol/L (3.5-5.1); Protein, Total 6.7 g/dL (6.4-8.2); Sodium Level 141 mmol/L (136-145); Troponin (Emerg Dept Use Only) < 0.02 ng/mL (0.0-0.045)
[2021-04-28 08:21] LABS: C-Reactive Protein < 2.90 mg/L (<3.00)
[2021-04-28 08:46] LABS: Absolute Lymphocytes (CBC) 2.2 K/uL (0.7-4.9); Basophils % 0.1 % (0-1.3); Lymphocytes % 16.5 % (15.3-44.8); MPV 8.1 fL (7.6-11.3); RBC Red Blood Cell Count 3.91 M/uL (4.33-5.43)
[2021-04-28 08:47] LABS: Protime INR 1.1
--- NOTE | 2021-04-28 08:56 | RAD REPORT ---
EXAM DESCRIPTION: RAD - Chest Single View - 04/28/2021 8:47 am CLINICAL HISTORY: SOB COMPARISON: Chest Single View dated 03/06/2021; CHEST PA AND LAT 2 VIEW dated 05/22/2013; CHEST SINGLE VIEW dated 08/07/2010; CHEST SINGLE VIEW dated 01/24/2008 FINDINGS: Lines: None. Lungs: Diffuse prominence of the pulmonary interstitium. Pleural: No significant pleural effusions or pneumothorax. Cardiac: Cardiomegaly. Bones: No acute fractures. Other: IMPRESSION: Mild edema.
[2021-04-28] MEDS ORDERED: FUROSEMIDE 40 MG/4 ML VIAL ONE (09:06)
[2021-04-28] MEDS ORDERED: ENOXAPARIN 100 MG/ML SYR SQ ONE (09:06)
--- NOTE | 2021-04-28 09:07 | RAD REPORT ---
EXAM DESCRIPTION: CT - Chest For Pe Angio - 04/28/2021 8:57 am CLINICAL HISTORY: SOB COMPARISON: No comparisons FINDINGS: Chest Wall: No suspicious thyroid nodules or pathologic lymphadenopathy. Lungs: Mild interlobular septal thickening is present. Pleura: Small bilateral pleural effusions. Mediastinum/keyla: No pathologic lymphadenopathy. Pulmonary arteries/Aorta: No filling defect identified. No aortic aneurysm. Heart: No significant pericardial effusion. Cardiomegaly including multi-vessel coronary artery dise ase. Upper abdomen: Reflux of contrast into the hepatic veins. Bones: No acute abnormality. All CT scans are performed using dose optimization technique as appropriate and may include automated exposure control or mA/KV adjustment according to patient size. IMPRESSION: Negative for pulmonary embolism. Mild interstitial edema/heart failure with small bilate ral pleural effusions.
[2021-04-28] MEDS ORDERED: POTASSIUM 25 MEQ EFFERV TAB ONE (09:20)
--- NOTE | 2021-04-28 09:27 | ER ---
Nurse's Notes [facility] Name: Oleg Giles Age: 75 yrs Sex: Male : 1945 Arrival Date: 04/28/2021 Time: 07:06 Bed 18 Private MD: Diagnosis: Unspecified atrial fibrillation;Anemia, unspecified;GI Bleed/ Gastrointestinal hemorrhage, unspecified Presentation: 04/28 07:21 Risk Assessment: Do you want to hurt yourself or someone else? Patient reports no ll1 desire to harm self or others. 07:21 Method Of Arrival: Wheelchair ll1 07:21 Acuity: ALEXANDREA 3 ll1 07:23 Chief complaint: Patient states: Discharged yesterday from [facility] after being ss diagnosed with bronchitis and pneumonia. Negative covid test. Pt reports wheezing that began last night. Coronavirus screen: Client denies travel out of the [place] in the last 14 days. Ebola Screen: Patient denies exposure to infectious person. Patient denies travel to an Ebola-affected area in the 21 days before illness onset. Initial Sepsis Screen: Does the patient meet any 2 criteria? No. Patient's initial sepsis screen is negative. Does the patient have a suspected source of infection? No. Patient's initial sepsis screen is negative. Onset of symptoms was April 25, 2021. Historical: - Allergies: 07:21 Aspirin; ll1 - PMHx: 07:21 Arthritis; Hypertensive disorder; ll1 - Immunization history:: Client reports receiving the Charanjit \T\ Charanjit single-dose vaccine. - Social history:: Smoking status: Patient denies any tobacco usage or history of. Screenin:21 Abuse screen: Denies threats or abuse. Nutritional screening: No deficits noted. ll1 Tuberculosis screening: No symptoms or risk factors identified. Fall Risk IV access (20 points). Gait- Weak (10 pts.). Total Orellana Fall Scale indicates Low Risk Score (25-44 pts). Fall prevention measures have been instituted. Side Rails Up X 2 Frequent Obs/Assesments occuring As available Patient and Family Educated on Fall Prevention Program and strategies. Assessment: 08:00 General: Appears ill, Behavior is calm, cooperative, appropriate for age. Pain: ll1 Complains of pain in back Quality of pain is described as aching, Aggravated by coughing. Neuro: No deficits noted. Cardiovascular: No deficits noted. Rhythm is atrial fibrillation. Respiratory: Reports shortness of breath labored breathing pain with cough Airway is patent Trachea midline Respiratory effort is even, labored, Respiratory pattern is regular, symmetrical, Breath sounds with wheezes bilaterally. Onset: The symptoms/episode began/occurred yesterday, the patient has moderate shortness of breath. GI: No deficits noted. 09:00 Reassessment: No changes from previously documented assessment. Patient and/or family ll1 updated on plan of care and expected duration. Pain level reassessed. 10:00 Reassessment: No changes from previously documented assessment. Patient and/or family ll1 updated on plan of care and expected duration. Pain level reassessed. Patient is alert, oriented x 3, equal unlabored respirations, skin warm/dry/pink. Vital Signs: 07:23 Pulse 72; Resp 18; Temp 97.8(O); Pulse Ox 100% on R/A; Weight 104.33 kg; Height 5 ft. 5 ss in. (165.10 cm); Pain 0/10; 07:25 BP 181 / 69; ss 09:32 BP 178 / 75; Resp 18; Pulse Ox 100% on 3 lpm NC; ll1 10:27 BP 175 / 72; ll1 11:09 BP 155 / 73; Pulse 60; Resp 18; Pulse Ox 100% on 2 lpm NC; Pain 0/10; ll1 07:23 Body Mass Index 38.27 (104.33 kg, 165.10 cm) ss ED Course: 07:06 Patient arrived in ED. bp1 07:19 Kyle Parks PA is PHCP. cp 07:19 Kyle Courtney MD is Attending Physician. cp 07:20 Monica Wood, DI is Primary Nurse. ll1 07:21 Triage completed. ll1 07:21 Arm band placed on Patient placed in an exam room, on a stretcher. ll1 07:22 Patient has correct armband on for positive identification. Bed in low position. Call ll1 light in reach. Side rails up X 1. Pulse ox on. NIBP on. 08:00 Inserted saline lock: 22 gauge in right antecubital area, using aseptic technique. ll1 Blood collected. 08:00 Missed attempt(s): 22 gauge in left forearm. Bleeding controlled, band aid applied, ll1 catheter tip intact. 08:47 XRAY Chest (1 view) In Process Unspecified. EDMS 08:59 CT Chest For PE Angio In Process Unspecified. EDMS 09:27 initiated a transfer with Kemal Hernandez from the [facility]. eb 09:[address] Morley GI complex commercial litigation paralegal for [facility] with Kyle Najera for patient eb transfer consultation. 10:[address] Velazquez the hospitalist complex commercial litigation paralegal for [facility] with Kyle Najera for patient eb transfer consultation. 10:24 administrative approval given by Kemal Hernandez/ patient has been accepted to [facility] bed 1054/ Dr. Meka Velazquez has accepted the patient in transfer/ report to be called to the transfer center at [phone]. 10:53 No provider procedures requiring assistance completed. ll1 11:11 Patient transferred, IV remains in place. ll1 Administered Medications: 08:10 Drug: Albuterol HFA Inhaler 2 puffs Route: Inhalation; ll1 09:32 Follow up: Response: No adverse reaction ll1 08:10 Drug: SOLU-Medrol (methylPrednisoLONE) 125 mg Route: IVP; Site: right antecubital; ll1 09:32 Follow up: Response: No adverse reaction ll1 09:21 Not Given (Blood in sttol, blood levels loww): Lovenox (enoxaparin) 1 mg/kg Sub-Q once ll1 09:32 Drug: Lasix (furosemide) 40 mg Route: IVP; Site: right antecubital; ll1 11:00 Follow up: Response: No adverse reaction ll1 09:32 Drug: Potassium Effervescent Tablet 50 mEq Route: PO; ll1 11:00 Follow up: Response: No adverse reaction ll1 09:32 Drug: ProTONIX (pantoprazole) 40 mg Route: IVP; Site: right antecubital; ll1 11:00 Follow up: Response: No adverse reaction ll1 Output: 08:00 Urine: 500ml (Voided); Total: 500ml. ll1 09:00 Urine: 550ml (Voided); Total: 1050ml. ll1 10:24 Urine: 700ml (Voided); Total: 1750ml. ll1 Outcome: 09:25 ER care complete, transfer ordered by cp 10:51 Transferred by ground EMS to [facility], Transfer form completed. 1 10:51 Condition: stable 10:51 Instructed on the need for transfer. 10:52 Transferred Note: Report given to Lora Howe RN at [facility]. No questions 1 about patient condition at this time. 11:12 Patient left the ED. 1 Signatures: Dispatcher [employer] EDLora Pacheco RN RN Kyle Chavira, URSULA PA Diandra Mckinney Lynsay, RN RN 1 Susy Foote Corrections: (The following items were deleted from the chart) 10:24 08:00 Urine 700, (Voided), Output Total 700. 1 1
--- NOTE | 2021-04-28 09:27 | EDPHYS ---
Physician Documentation [facility] Name: Oleg Giles Age: 75 yrs Sex: Male : 1945 Arrival Date: 04/28/2021 Time: 07:06 Bed 18 Private MD: ED Physician Kyle Courtney HPI: 04/28 07:40 This 75 yrs old Male presents to ER via Wheelchair with complaints of cp Breathing Difficulty, Wheezing. 07:40 The patient has shortness of breath at rest. cp 07:40 Onset: The symptoms/episode began/occurred this morning. Duration: The symptoms are cp continuous, and are steadily getting worse. Associated signs and symptoms: Pertinent negatives: chest pain, productive cough, diaphoresis, fever, vomiting. Severity of symptoms: in the emergency department the symptoms are unchanged despite home interventions. 07:40 Patient reports recent discharge from [facility] yesterday after being cp hospitalized for bronchitis. Patient reports shortness of breath and wheezing since this morning. Historical: - Allergies: 07:21 Aspirin; ll1 - PMHx: 07:21 Arthritis; Hypertensive disorder; ll1 - Immunization history:: Client reports receiving the Charanjit \T\ Charanjit single-dose vaccine. - Social history:: Smoking status: Patient denies any tobacco usage or history of. ROS: 07:45 Constitutional: Negative for body aches, chills, fever, poor PO intake. cp 07:45 Eyes: Negative for injury, pain, redness, and discharge. cp 07:45 Cardiovascular: Negative for chest pain, palpitations. cp 07:45 Neck: Negative for pain with movement, pain at rest, stiffness. cp 07:45 Respiratory: Positive for shortness of breath, at rest. wheezing. 07:45 Abdomen/GI: Negative for abdominal pain, nausea, vomiting, and diarrhea, constipation. 07:45 Neuro: Negative for altered mental status, headache, weakness. 07:45 All other systems are negative. Exam: 07:55 Constitutional: The patient appears in no acute distress, alert, awake, cp non-diaphoretic, non-toxic, well developed, well nourished. 07:55 Head/Face: Normocephalic, atraumatic. cp 07:55 Eyes: Periorbital structures: appear normal, Conjunctiva: normal, no exudate, no injection, Sclera: no appreciated abnormality, Lids and lashes: appear normal, bilaterally. 07:55 ENT: External ear(s): are unremarkable, Nose: is normal, Mouth: Lips: moist, Oral mucosa: moist, Posterior pharynx: Airway: no evidence of obstruction, patent. 07:55 Neck: ROM/movement: is normal, is supple, without pain, no range of motions limitations, no nuchal rigidity. 07:55 Chest/axilla: Inspection: normal, Palpation: is normal, no crepitus, no tenderness. 07:55 Cardiovascular: Rate: normal, Rhythm: regular, Edema: ankle edema, that is very mild, JVD: is not appreciated. 07:55 Respiratory: the patient does not display signs of respiratory distress, Respirations: labored breathing, is not present, intercostal retractions, are absent, shallow respirations, that is mild, Breath sounds: decreased breath sounds, are not appreciated, rhonchi, are not appreciated, stridor, is not appreciated, wheezing: that is mild. 07:55 Abdomen/GI: Inspection: abdomen appears normal, Bowel sounds: active, all quadrants, Palpation: abdomen is soft and non-tender, in all quadrants, Rectal exam: Stool: brown, guaiac positive. 07:55 Back: pain, is absent, ROM is normal. 07:55 Skin: no rash present. 07:55 Neuro: Orientation: to person, place \T\ time. Mentation: is normal, Cerebellar function: is grossly normal, Motor: moves all fours, strength is normal, Sensation: is normal. 07:59 ECG was reviewed by the Attending Physician. cp Vital Signs: 07:23 Pulse 72; Resp 18; Temp 97.8(O); Pulse Ox 100% on R/A; Weight 104.33 kg; Height 5 ft. 5 ss in. (165.10 cm); Pain 0/10; 07:25 BP 181 / 69; ss 09:32 BP 178 / 75; Resp 18; Pulse Ox 100% on 3 lpm NC; ll1 10:27 BP 175 / 72; ll1 11:09 BP 155 / 73; Pulse 60; Resp 18; Pulse Ox 100% on 2 lpm NC; Pain 0/10; ll1 07:23 Body Mass Index 38.27 (104.33 kg, 165.10 cm) ss MDM: 07:28 Patient medically screened. benjamin 08:00 Differential diagnosis: Bronchitis pneumonia, pulmonary edema, Pulmonary Embolism cp Sepsis anemia. 09:15 Data reviewed: vital signs, nurses notes, lab test result(s), EKG, radiologic studies, cp CT scan, plain films, I have discussed the patient's presentation/case with the attending Emergency Department Physician;. 09:15 Test interpretation: by ED physician or midlevel provider: ECG, plain radiologic cp studies. 04/28 07:34 Order name: Basic Metabolic Panel cp 04/28 07:34 Order name: CBC with Diff cp 04/28 09:10 Interpretation: Normal except: WBC 13.00; RBC 3.91; HGB 8.3; HCT 27.0; MCV 69.2; MCH cp 21.3; MCHC 30.8; PLT 414; RDW 21.0; NEUT A 9.5; MNA 1.4. 04/28 07:34 Order name: LFT's 04/28 07:34 Order name: Magnesium cp 04/28 07:34 Order name: NT PRO-BNP; Complete Time: 08:23 cp 04/28 08:23 Interpretation: Abnormal: NT PRO-BNP 4595. cp 04/28 07:34 Order name: PT-INR; Complete Time: 09:09 cp 04/28 07:34 Order name: Troponin (emerg Dept Use Only); Complete Time: 08:23 cp 04/28 07:34 Order name: CRP; Complete Time: 08:23 cp 04/28 07:34 Order name: Ferritin; Complete Time: 08:23 cp 04/28 07:35 Order name: Basic Metabolic Panel; Complete Time: 08:23 EDMS 04/28 08:23 Interpretation: Normal except: K 3.4; CL 111; GLUC 112; BUN 23; CA 8.3. cp 04/28 07:35 Order name: Liver (Hepatic) Function; Complete Time: 08:23 EDMS 04/28 07:35 Order name: Magnesium; Complete Time: 08:23 EDMS 04/28 07:34 Order name: XRAY Chest (1 view); Complete Time: 09:09 cp 04/28 07:34 Order name: Cardiac monitoring; Complete Time: 08:01 cp 04/28 07:34 Order name: EKG - Nurse/Tech; Complete Time: 08:01 cp 04/28 07:34 Order name: IV Saline Lock; Complete Time: 07:35 cp 04/28 08:24 Order name: CT Chest For PE Angio; Complete Time: 09:09 cp 04/28 09:23 Order name: Type And Screen cp 04/28 09:49 Order name: COVID-19/FLU A+B; Complete Time: 10:19 EDMS 04/28 07:34 Order name: Labs collected and sent; Complete Time: 07:35 cp 04/28 07:34 Order name: O2 Per Protocol; Complete Time: 07:35 cp 04/28 07:34 Order name: O2 Sat Monitoring; Complete Time: 07:35 cp 04/28 09:30 Order name: Vital Signs: please update; Complete Time: 09:50 cp EC:59 Rate is 62 beats/min. Rhythm is irregular. QRS interval is prolonged at 116 msec. QT cp interval is normal. Interpreted by me. Reviewed by me. Administered Medications: 08:10 Drug: Albuterol HFA Inhaler 2 puffs Route: Inhalation; ll1 09:32 Follow up: Response: No adverse reaction ll1 08:10 Drug: SOLU-Medrol (methylPrednisoLONE) 125 mg Route: IVP; Site: right antecubital; ll1 09:32 Follow up: Response: No adverse reaction ll1 09:21 Not Given (Blood in sttol, blood levels loww): Lovenox (enoxaparin) 1 mg/kg Sub-Q once ll1 09:32 Drug: Lasix (furosemide) 40 mg Route: IVP; Site: right antecubital; ll1 11:00 Follow up: Response: No adverse reaction ll1 09:32 Drug: Potassium Effervescent Tablet 50 mEq Route: PO; ll1 11:00 Follow up: Response: No adverse reaction ll1 09:32 Drug: ProTONIX (pantoprazole) 40 mg Route: IVP; Site: right antecubital; ll1 11:00 Follow up: Response: No adverse reaction ll1 Disposition Summary: 04/28/21 09:25 Transfer Ordered Transfer Location: [facility] cp Reason: Higher level of care cp Condition: Stable cp Problem: new cp Symptoms: have improved cp Accepting Physician: DR Velazquez(04/28/21 11:12) ll1 Diagnosis - Unspecified atrial fibrillation cp - Anemia, unspecified cp - GI Bleed/ Gastrointestinal hemorrhage, unspecified cp Forms: - Medication Reconciliation Form cp - SBAR form cp Addendum: 04/29/2021 20:13 Co-signature as Attending Physician, Kyle Courtney MD I agree with the assessment and c cardozo plan of care. Signatures: Dispatcher [employer] EDMS Kyle Courtney MD MD cha Smirch, Shelby RN RN Kyle Parks PA PA cp Lewis, Lynsay, RN RN ll1 Corrections: (The following items were deleted from the chart) 04/28 09:06 07:35 Influenza Screen (A \T\ B)+BA.LAB.BRZ ordered. EDMS EDMS 09:06 07:35 CORONAVIRUS+MR.LAB.BRZ ordered. EDPA EDMS 10:39 09:25 Doctor cp cp 11:12 10:39 DR Velazquez cp ll1
[2021-04-28 09:48] LABS: SARS-COV-2 RT PCR NEGATIVE (NEGATIVE)
[2021-04-28] MEDS ORDERED: PANTOPRAZOLE 40 MG INJ ONE (09:51)
[2021-04-28] MEDS ORDERED: ONDANSETRON 4 MG (ODT) TAB ONE (10:31)
[2021-04-28 11:18] VITALS: TEMP 97.8; O2SAT 100
[2021-04-28 11:23] VITALS: BP 155/73
[2021-04-28 12:40] LABS: Blood Morphology Comment NOTED (NOT SEEN); Platelet Estimate ADEQ
[2021-04-28 12:41] LABS: Anisocytosis 1+; Elliptocytes 1+; Hypochromasia 1+; Poikilocytosis SLIGHT
--- NOTE | 2021-05-02 10:09 | EKG ---
Test Date: 2021-04-28 Test Time: 07:56:42 Web Services Architect: FOX MEASUREMENT RESULTS: Intervals: Rate: 62 DC: QRSD: 116 QT: 454 QTc: 460 Rockwell: P: DC: QRS: -3 T: 74 INTERPRETIVE STATEMENTS: Atrial fibrillation Left ventricular hypertrophy with QRS widening Nonspecific ST abnormality, probably digitalis effect Abnormal ECG Compared to ECG 03/06/2021 18:21:34 ST (T wave) deviation now present Sinus rhythm no longer present Electronically Signed On 05-02-21 10:05:02 CDT by Jimmy Westbrook
== END 2021-04-28 11:12 | disposition short-term general hospital (02) ==
LOC: ER 07:04
DX: I48.91 Unspecified atrial fibrillation (principal); D64.9 Anemia, unspecified; K92.2 Gastrointestinal hemorrhage, unspecified; I10 Essential (primary) hypertension; Z20.822 Contact with and (suspected) exposure to COVID-19; Z88.6 Allergy status to analgesic agent
CPT/HCPCS: 93005; 85025; 80048; 36415; 83735; 85610; 80076; 84484; 82728; 83880; 0240U; 86140; 71275; 71045; 96375; 96374; 99285; Q9967; J1940; C9113; J2930; J1650

== ENCOUNTER 2021-06-03 07:07 | Observation (INO) | payer OTHER ==
[2021-06-03] MEDS ORDERED: DIGOXIN 0.25 MG/ML AMP ONE (08:05)
[2021-06-03] MEDS ORDERED: METOPROLOL TARTRATE 5 MG/5 ML INJ IV ONE (08:05)
[2021-06-03] MEDS ORDERED: FUROSEMIDE 20 MG/ 2ML VIAL ONE (08:05)
--- NOTE | 2021-06-03 08:18 | ER ---
Nurse's Notes [facility] Name: Oleg Giles Age: 75 yrs Sex: Male : 1945 Arrival Date: 06/03/2021 Time: 07:09 Bed 5 Private MD: Willy Deshpande R Diagnosis: Dyspnea;Chronic atrial fibrillation;Persistent atrial fibrillation-with RVR;Diastolic (congestive) heart failure;Anemia, unspecified;Hypokalemia Presentation: 06/03 07:13 Chief complaint: Pt's daughter states "He had covid a couple of months ago and he gets aa5 really anxious and I keep telling Dr. Deshpande he needs anxiety medicine". Pt reports SOB and wheezing that began this morning. Pt also reports cough. 07:13 Method Of Arrival: Ambulatory aa5 07:13 Coronavirus screen: cough unrelated to allergies, shortness of breath. Ebola Screen: aa5 Patient negative for fever greater than or equal to 101.5 degrees Fahrenheit, and additional compatible Ebola Virus Disease symptoms. Initial Sepsis Screen: Does the patient meet any 2 criteria? RR > 20 per min. HR > 90 bpm. Yes Does the patient have a suspected source of infection? No. Patient's initial sepsis screen is negative. Risk Assessment: Do you want to hurt yourself or someone else? Patient reports no desire to harm self or others. Onset of symptoms was June 03, 2021. 07:13 Acuity: ALEXANDREA 3 aa5 Triage Assessment: 07:32 Respiratory: Reports shortness of breath Onset: The symptoms/episode began/occurred ap3 gradually, the patient has moderate shortness of breath. Historical: - Allergies: 07:13 Aspirin; aa5 - PMHx: 07:13 Arthritis; Hypertensive disorder; aa5 07:15 Atrial fibrillation; aa5 - Immunization history:: Client reports receiving the Charanjit \\T\\ Charanjit single-dose vaccine. - Social history:: Smoking status: Patient denies any tobacco usage or history of. Screenin:32 Abuse screen: Denies threats or abuse. Nutritional screening: No deficits noted. ap3 Tuberculosis screening: No symptoms or risk factors identified. Fall Risk None identified. Assessment: 07:31 General: Appears distressed, Behavior is cooperative. Pain: Denies pain. Neuro: Level ap3 of Consciousness is awake, alert, obeys commands, Oriented to person, place, time, situation, Speech is normal. Cardiovascular: Patient's skin is warm and dry. Rhythm is atrial fibrillation. Respiratory: Airway is patent Respiratory effort is even, Respiratory pattern is tachypnea Breath sounds with wheezes. GI: Abdomen is round Bowel sounds present X 4 quads. Vital Signs: 07:13 BP 144 / 73; Pulse 115; Resp 24 S; Temp 99.0(O); Pulse Ox 98% on R/A; Weight 83.46 kg aa5 (R); Height 5 ft. 6 in. (167.64 cm) (R); 08:16 BP 129 / 74; Pulse 94; Resp 22; Pulse Ox 99% on R/A; ap3 09:30 BP 128 / 77; Pulse 95; Resp 23; Pulse Ox 97% ; jl7 10:00 BP 139 / 87; Pulse 95; Resp 15; Pulse Ox 97% ; jl7 10:30 BP 125 / 69; Pulse 99; Resp 21; Pulse Ox 97% ; jl7 11:00 BP 136 / 71; Pulse 105; Resp 21; Pulse Ox 97% ; jl7 07:13 Body Mass Index 29.70 (83.46 kg, 167.64 cm) aa5 ED Course: 07:09 Patient arrived in ED. as 07:09 Willy Deshpande MD is Private Physician. as 07:13 Arm band placed on. aa5 07:19 Triage completed. aa5 07:20 Kyle Courtney MD is Attending Physician. benjamin 07:25 Ria Snow, RN is Primary Nurse. ap3 07:28 EKG done, by ED staff, reviewed by Kyle Courtney MD. em1 07:30 Patient has correct armband on for positive identification. Bed in low position. Call ap3 light in reach. Side rails up X2. assembling machine operator on. Pulse ox on. NIBP on. Door closed. Noise minimized. 07:50 Initial lab(s) drawn, by me, sent to lab. Second set of blood cultures drawn by me. jl7 Inserted saline lock: 22 gauge in left hand, using aseptic technique. Blood collected. 08:12 XRAY Chest (1 view) In Process Unspecified. EDMS 08:15 Gabino Navarro DO is Hospitalizing Provider. benjamin 08:16 COVID swab sent to lab. ap3 11:08 No provider procedures requiring assistance completed. Patient admitted, IV remains in ap3 place. Administered Medications: 07:53 Drug: Lopressor (metoprolol) 2.5 mg Route: IVP; Site: left hand; jl7 10:21 Follow up: Response: No adverse reaction ap3 07:55 Drug: Lasix (furosemide) 20 mg Route: IVP; Site: left hand; jl7 10:21 Follow up: Response: No adverse reaction ap3 08:02 Drug: Digoxin 0.5 mg Route: IVP; Site: left hand; ap3 10:21 Follow up: Response: No adverse reaction ap3 08:09 Drug: Lopressor (metoprolol) 2.5 mg Route: IVP; Site: left hand; ap3 10:21 Follow up: Response: No adverse reaction ap3 08:39 Drug: Lasix (furosemide) 20 mg Route: IVP; Site: left hand; ap3 10:20 Follow up: Response: No adverse reaction ap3 10:20 Drug: Zosyn (piperacillin-tazobactam) 3.375 grams Route: IVPB; Infused Over: 60 mins; ap3 Site: left hand; 11:09 Follow up: IV Status: Infusion continued upon admission ap3 10:20 Drug: Potassium Effervescent Tablet 50 mEq Route: PO; ap3 11:09 Follow up: Response: No adverse reaction ap3 Outcome: 08:17 Decision to Hospitalize by Provider. benjamin 11:08 Admitted to ICU accompanied by nurse, via wheelchair, with chart. ap3 11:08 Condition: good 11:08 Discharge instructions given to patient, family, Instructed on the need for admit, Demonstrated understanding of instructions. 11:09 Patient left the ED. ap3 Signatures: Dispatcher [employer] EDMS Kyle Courtney MD MD cha Martinez, Amelia as Martinez, Eric em1 Chayito Arriaga RN RN aa5 Jet Franz RN RN jl7 Ria Snow RN RN ap3
--- NOTE | 2021-06-03 08:18 | EDPHYS ---
Physician Documentation [facility] Name: Oleg Giles Age: 75 yrs Sex: Male : 1945 Arrival Date: 06/03/2021 Time: 07:09 Bed 5 Private MD: Willy Deshpande R ED Physician Kyle Courtney HPI: 06/03 07:37 This 75 yrs old Male presents to ER via Ambulatory with complaints of Wheezing benjamin > 1 Year, Cough, Weakness. 07:37 The patient presents to the emergency department with wheezing, Current therapy: None. benjamin Onset: The symptoms/episode began/occurred. Modifying factors: The symptoms are alleviated by nothing, the symptoms are aggravated by nothing. Associated signs and symptoms: The patient has no apparent associated signs or symptoms. Severity of symptoms: At their worst the symptoms were mild moderate in the emergency department the symptoms are unchanged. The patient has not experienced similar symptoms in the past. Historical: - Allergies: 07:13 Aspirin; aa5 - PMHx: 07:13 Arthritis; Hypertensive disorder; aa5 07:15 Atrial fibrillation; aa5 - Immunization history:: Client reports receiving the Charanjit \T\ Charanjit single-dose vaccine. - Social history:: Smoking status: Patient denies any tobacco usage or history of. ROS: 07:41 Constitutional: Negative for fever, chills, and weight loss, Eyes: Negative for injury, benjamin pain, redness, and discharge, ENT: Negative for injury, pain, and discharge, Neck: Negative for injury, pain, and swelling, Abdomen/GI: Negative for abdominal pain, nausea, vomiting, diarrhea, and constipation, Back: Negative for injury and pain, : Negative for injury, bleeding, discharge, and swelling, MS/Extremity: Negative for injury and deformity, Skin: Negative for injury, rash, and discoloration, Neuro: Negative for headache, weakness, numbness, tingling, and seizure, Psych: Negative for depression, anxiety, suicide ideation, homicidal ideation, and hallucinations, Allergy/Immunology: Negative for hives, rash, and allergies, Endocrine: Negative for neck swelling, polydipsia, polyuria, polyphagia, and marked weight changes, Hematologic/Lymphatic: Negative for swollen nodes, abnormal bleeding, and unusual bruising. 07:41 Cardiovascular: Positive for palpitations. 07:41 Respiratory: Positive for cough, shortness of breath, wheezing, expiratory. Exam: 07:41 Constitutional: This is a well developed, well nourished patient who is awake, alert, benjamin and in no acute distress. Head/Face: Normocephalic, atraumatic. Eyes: Pupils equal round and reactive to light, extra-ocular motions intact. Lids and lashes normal. Conjunctiva and sclera are non-icteric and not injected. Cornea within normal limits. Periorbital areas with no swelling, redness, or edema. ENT: Nares patent. No nasal discharge, no septal abnormalities noted. Tympanic membranes are normal and external auditory canals are clear. Oropharynx with no redness, swelling, or masses, exudates, or evidence of obstruction, uvula midline. Mucous membranes moist. Neck: Trachea midline, no thyromegaly or masses palpated, and no cervical lymphadenopathy. Supple, full range of motion without nuchal rigidity, or vertebral point tenderness. No Meningismus. Chest/axilla: Normal chest wall appearance and motion. Nontender with no deformity. No lesions are appreciated. Cardiovascular: Regular rate and rhythm with a normal S1 and S2. No gallops, murmurs, or rubs. Normal PMI, no JVD. No pulse deficits. Abdomen/GI: Soft, non-tender, with normal bowel sounds. No distension or tympany. No guarding or rebound. No evidence of tenderness throughout. Back: No spinal tenderness. No costovertebral tenderness. Full range of motion. Male : Normal genitalia with no discharge or lesions. Skin: Warm, dry with normal turgor. Normal color with no rashes, no lesions, and no evidence of cellulitis. MS/ Extremity: Pulses equal, no cyanosis. Neurovascular intact. Full, normal range of motion. Neuro: Awake and alert, GCS 15, oriented to person, place, time, and situation. Cranial nerves II-XII grossly intact. Motor strength 5/5 in all extremities. Sensory grossly intact. Cerebellar exam normal. Normal gait. Psych: Awake, alert, with orientation to person, place and time. Behavior, mood, and affect are within normal limits. 07:41 Respiratory: mild respiratory distress is noted, Respirations: normal, Breath sounds: decreased breath sounds, that are mild, rhonchi, that are mild, stridor, is not appreciated, wheezing: expiratory Respiratory rate: 24 07:41 Musculoskeletal/extremity: DVT Exam: No signs of deep vein thrombosis. no pain, no swelling, no tenderness, negative Homans' sign noted on exam, no appreciated bluish discoloration, no erythema, no increased warmth. 07:51 ECG was reviewed by the Attending Physician. [facility] Vital Signs: 07:13 BP 144 / 73; Pulse 115; Resp 24 S; Temp 99.0(O); Pulse Ox 98% on R/A; Weight 83.46 kg aa5 (R); Height 5 ft. 6 in. (167.64 cm) (R); 08:16 BP 129 / 74; Pulse 94; Resp 22; Pulse Ox 99% on R/A; ap3 09:30 BP 128 / 77; Pulse 95; Resp 23; Pulse Ox 97% ; jl7 10:00 BP 139 / 87; Pulse 95; Resp 15; Pulse Ox 97% ; jl7 10:30 BP 125 / 69; Pulse 99; Resp 21; Pulse Ox 97% ; jl7 11:00 BP 136 / 71; Pulse 105; Resp 21; Pulse Ox 97% ; jl7 07:13 Body Mass Index 29.70 (83.46 kg, 167.64 cm) aa5 MDM: 07:20 Patient medically screened. benjamin 07:46 Differential diagnosis: Anemia Bronchitis CHF exacerbation, acute asthma, reactive benjamin airway, CHF, URI. Antibiotic administration: Not indicated. The patient's Wells Deep Vein Thrombosis Score was calculated as follows: Heart Rate >100 BPM (1.5 Pts) Total Score: 0-2 Pts- Low Risk. The patient's pulmonary embolism risk score was calculated as follows: the patients heart rate is greater than 100 beats per minute (1.5 Pts) Total Score: 0-2 points. This patient was found to be at low risk for a pulmonary embolism by using the Well's assessment criteria. Immunization status: Pneumococcal vaccine: Influenza vaccine: Data reviewed: vital signs, nurses notes, lab test result(s), EKG, radiologic studies, plain films. Data interpreted: direct marketing manager: rate is 115 beats/min, rhythm is atrial fibrillation, Pulse oximetry: on room air. Test interpretation: by ED physician or midlevel provider: ECG, plain radiologic studies. Counseling: I had a detailed discussion with the patient and/or guardian regarding: the historical points, exam findings, and any diagnostic results supporting the discharge/admit diagnosis, lab results, radiology results, the need for further work-up and treatment in the hospital. 06/03 07:37 Order name: Basic Metabolic Panel [facility] 06/03 07:37 Order name: CBC with Diff [facility] 06/03 07:37 Order name: LFT's [facility] 06/03 07:37 Order name: Magnesium [facility] 06/03 07:37 Order name: NT PRO-BNP [facility] 06/03 07:37 Order name: PT-INR; Complete Time: 08:44 [facility] 06/03 07:37 Order name: Troponin (emerg Dept Use Only) [facility] 06/03 07:37 Order name: Blood Culture Adult (2) [facility] 06/03 07:37 Order name: Lactate; Complete Time: 08:32 [facility] 06/03 07:37 Order name: TSH [facility] 06/03 07:37 Order name: Basic Metabolic Panel [facility] 06/03 07:37 Order name: CBC with Automated Diff [facility] 06/03 07:37 Order name: Liver (Hepatic) Function [facility] 06/03 07:37 Order name: XRAY Chest (1 view); Complete Time: 09:23 [facility] 06/03 08:06 Order name: SARS-COV-2 RT PCR; Complete Time: 09:23 [facility] 06/03 09:23 Order name: CRP [facility] 06/03 09:23 Order name: Ferritin [facility] 06/03 09:24 Order name: C-Reactive Protein [facility] 06/03 10:24 Order name: CBC Smear Scan [facility] 06/03 10:34 Order name: C-Reactive Protein [facility] 06/03 10:34 Order name: Ferritin [facility] 06/03 11:07 Order name: Urine Dipstick-Ancillary [facility] 06/03 07:37 Order name: EKG; Complete Time: 07:38 [facility] 06/03 07:37 Order name: Cardiac monitoring; Complete Time: 07:40 [facility] 06/03 07:37 Order name: EKG - Nurse/Tech; Complete Time: 07:40 [facility] 06/03 07:37 Order name: IV Saline Lock; Complete Time: 08:02 [facility] 06/03 07:37 Order name: Labs collected and sent; Complete Time: 08:02 [facility] 06/03 07:37 Order name: O2 Per Protocol; Complete Time: 07:40 [facility] 06/03 07:37 Order name: O2 Sat Monitoring; Complete Time: 07:40 [facility] 06/03 07:37 Order name: Urine Dipstick-Ancillary (obtain specimen); Complete Time: 11:00 [facility] EC:51 Rate is 118 beats/min. Rhythm is irregularly irregular. QRS Philipp is Normal. PA interval benjamin is normal. QRS interval is normal. QT interval is normal. No Q waves. T waves are Normal. No ST changes noted. Clinical impression: Atrial Fibrillation and No evidence of ischemia. Interpreted by me. Reviewed by me. Administered Medications: 07:53 Drug: Lopressor (metoprolol) 2.5 mg Route: IVP; Site: left hand; jl7 10:21 Follow up: Response: No adverse reaction ap3 07:55 Drug: Lasix (furosemide) 20 mg Route: IVP; Site: left hand; jl7 10:21 Follow up: Response: No adverse reaction ap3 08:02 Drug: Digoxin 0.5 mg Route: IVP; Site: left hand; ap3 10:21 Follow up: Response: No adverse reaction ap3 08:09 Drug: Lopressor (metoprolol) 2.5 mg Route: IVP; Site: left hand; ap3 10:21 Follow up: Response: No adverse reaction ap3 08:39 Drug: Lasix (furosemide) 20 mg Route: IVP; Site: left hand; ap3 10:20 Follow up: Response: No adverse reaction ap3 10:20 Drug: Zosyn (piperacillin-tazobactam) 3.375 grams Route: IVPB; Infused Over: 60 mins; ap3 Site: left hand; 11:09 Follow up: IV Status: Infusion continued upon admission ap3 10:20 Drug: Potassium Effervescent Tablet 50 mEq Route: PO; ap3 11:09 Follow up: Response: No adverse reaction ap3 Disposition Summary: 06/03/21 08:17 Hospitalization Ordered Hospitalization Status: Observation benjamin Provider: Gabino Navarro cha Condition: Fair benjamin Problem: new benjamin Symptoms: have improved benjamin Bed/Room Type: Standard benjamin Location: Intensive Care Unit(06/03/21 10:56) joe Room Assignment: 1-(06/03/21 10:56) [email or web address] Diagnosis - Dyspnea benjamin - Chronic atrial fibrillation benjamin - Persistent atrial fibrillation - with RVR benjamin - Diastolic (congestive) heart failure benjamin - Anemia, unspecified benjamin - Hypokalemia benjamin Forms: - Medication Reconciliation Form benjamin - SBAR form benjamin Signatures: Dispatcher [employer] EDKyle Arceo MD MD cha Calderon, Audri RN RN aa5 Jet Franz RN RN jl7 Raz Plaza RN RN ja1 Ria Snow RN RN ap3 Corrections: (The following items were deleted from the chart) 08:06 07:38 CORONAVIRUS+MR.LAB.BRZ ordered. [facility] 10:56 08:17 Telemetry/MedSurg (observation) benjamin [facility] 10:56 08:17 benjamin [facility]
[2021-06-03 08:25] LABS: Absolute Lymphocytes (CBC) 0.7 K/uL (0.7-4.9); Basophils % 1.1 % (0-1.3); Hematocrit 27.2 % (39.6-49.0); Lymphocytes % 8.2 % (15.3-44.8); MPV 8.1 fL (7.6-11.3); RBC Red Blood Cell Count 3.35 M/uL (4.33-5.43)
[2021-06-03 08:31] LABS: Protime INR 1.5
[2021-06-03 08:50] LABS: ALT/SGPT 51 U/L (12-78); AST/SGOT 30 U/L (15-37); Albumin 2.9 g/dL (3.4-5.0); Alkaline Phosphatase 89 U/L (45-117); BUN Blood Urea Nitrogen 13 mg/dL (7-18); Bicarbonate 23 mmol/L (21-32); Bilirubin Direct 0.3 mg/dL (0-0.2); Bilirubin Total 0.7 mg/dL (0.2-1.0); Glucose Level 120 mg/dL (74-106); Magnesium 2.2 mg/dL (1.8-2.4); NT PRO-BNP 2305 pg/mL (<450); Potassium 3.4 mmol/L (3.5-5.1); Protein, Total 6.3 g/dL (6.4-8.2); Sodium Level 139 mmol/L (136-145); Troponin (Emerg Dept Use Only) < 0.02 ng/mL (0.0-0.045)
[2021-06-03] MEDS ORDERED: FUROSEMIDE 40 MG/4 ML VIAL ONE (08:53)
--- NOTE | 2021-06-03 09:04 | RAD REPORT ---
EXAM DESCRIPTION: RAD - Chest Single View - 06/03/2021 8:12 am CLINICAL HISTORY: Cough;Dyspnea COMPARISON: April 28 TECHNIQUE: AP portable chest image was obtained 06/03/2021 8:12 am . FINDINGS: Right lung base interstitial and alveolar opacities are present, slight increase from the prior examination. No large mass or dense consolidation seen. Mild cardiomegaly without vascular engorgement. Heart size matches comparison. No measurable pleural effusion and no pneumothorax. No acute bony abnormality seen. No acute aortic findings suspected. IMPRESSION: Suspected right lung base pneumonia. Correlation is needed with any supporting clinical or laboratory findings. Stable, mild cardiomegaly without other findings of significant failure or volume overload.
--- NOTE | 2021-06-03 10:02 | P.HP ---
Certification for Inpatient Patient admitted to: Observation With expected LOS: <2 Midnights Patient will require the following post-hospital care: None Practitioner: I am a practitioner with admitting privileges, knowledge of patient current condition, hospital course, and medical plan of care. Services: Services provided to patient in accordance with Admission requirements found in Title 42 Section 412.3 of the Code of Federal Regulations Patient History Date of Service: 06/03/21 Primary Care Provider: Dr. Deshpande; Cardiology-Dr. Westbrook Reason for admission: Shortness of breath, wheezing History of Present Illness: 75-year-old male with history of atrial fibrillation on chronic anticoagulation therapy, hypertension, anemia chronic disease with iron deficiency, hyperlipidemia. Patient presented to emergency room with increasing shortness of breath, wheezing and cough. Patient with history of Covid pneumonia in the past. Patient has received Covid vaccine. Over the last several days patient has had increasing shortness of breath especially overnight. Mild edema to the lower extremity noted. Patient takes Lasix. Patient denies any significant fever. Denies any significant chest pain. Patient reports some nausea and constipation with amiodarone. Patient came to the ER for further evaluation. Patient evaluated emergency room patient was in A. fib with rapid ventricular rate with rate around 115. Patient received IV Lopressor in the emergency room along with Lasix and digoxin. Heart rate improved. Patient overall stable. Chest x-ray shows CHF pattern with possible pneumonia. White count 8.5, hemoglobin 8.6. Platelet count 316. Sodium 139, potassium 3.4. BUN 13, creatinine 0.9. GFR 77. Glucose 120. Lactic acid negative. BNP elevated at 2300. Patient admitted for further evaluation and treatment. Allergies aspirin Allergy (Mild, Verified 08/04/18 08:41) Nausea/Vomiting Home medications list reviewed: Yes Home Medications: Atorvastatin Calcium [Lipitor*] 20 mg PO DAILY #90 tab 06/06/17 Clopidogrel Bisulfate [Plavix*] 75 mg PO DAILY #90 tablet 06/06/17 Travoprost (Benzalkonium) [Travatan 0.004% Eye Drop] 1 gtt EACH EYE BEDTIME 08/01/18 Cyclosporine [Restasis] 1 drop EACH EYE BID 10/14/18 Olmesartan Medoxomil 40 mg PO BEDTIME 10/14/18 - Past Medical/Surgical History Diabetic: No -: Atrial fibrillation on chronic anticoagulation therapy -: Hypertension -: History of CVA -: Hyperlipidemia -: Anemia of chronic disease with iron deficiency -: GERD -: Incision and drainage right thigh -: cataract sx carol Psychosocial/ Personal History: Patient lives at home. He is - Family History Father -: Diabetes, Stroke - Social History Smoking Status: Former smoker Alcohol use: No CD- Drugs: No Caffeine use: Yes Place of Residence: Home Review of Systems General: Weakness, As per HPI Eyes: As per HPI ENT: Nose Congestion, As per HPI Respiratory: Shortness of Breath, Wheezing, As per HPI Cardiovascular: Palpitations, As per HPI Gastrointestinal: Nausea, Constipation, As per HPI Genitourinary: Unremarkable Musculoskeletal: Unremarkable Integumentary: Unremarkable Neurological: Unremarkable Lymphatics: Unremarkable Physical Examination - Studies Laboratory Data (last 24 hrs) 06/03/21 07:55: PT 17.3 H, INR 1.50 06/03/21 07:55: WBC 8.50, Hgb 8.6 L, Hct 27.2 L, Plt Count 316 06/03/21 07:55: Sodium 139, Potassium 3.4 L, BUN 13, Creatinine 0.95, Glucose 120 H, Magnesium 2.2, Total Bilirubin 0.7, AST 30, ALT 51, Alkaline Phosphatase 89 Assessment and Plan - Plan COVID: Positive Chest x-ray: COMPARISON: April 28 TECHNIQUE: AP portable chest image was obtained 06/03/2021 8:12 am . FINDINGS: Right lung base interstitial and alveolar opacities are present, slight increase from the prior examination. No large mass or dense consolidation seen. Mild cardiomegaly without vascular engorgement. Heart size matches comparison. No measurable pleural effusion and no pneumothorax. No acute bony abnormality seen. No acute aortic findings suspected. IMPRESSION: Suspected right lung base pneumonia. Correlation is needed with any supporting clinical or laboratory findings. Stable, mild cardiomegaly without other findings of significant failure or volume overload. Physical Exam: GENERAL: Patient alert, cooperative. Currently on room air. VITAL SIGNS: Reviewed HEENT: Head is normocephalic and atraumatic. Extraocular muscles are intact. Pupils are equal, round, and reactive to light and accommodation. Nares appeared normal. Mouth is well hydrated and without lesions. Mucous membranes are moist. NECK: Supple. No carotid bruits. No lymphadenopathy or thyromegaly. LUNGS: Slightly decreased at the bases. Mild wheezing noted HEART: Irregular irregular with rate better controlled around 100 ABDOMEN: Soft, nontender, and nondistended. Positive bowel sounds. No hepatosplenomegaly was noted. EXTREMITIES: Without any cyanosis, clubbing, rash, lesions or peripheral edema. NEUROLOGIC: The patient is oriented to person, place and time. Strength and sensation are grossly intact. Face is symmetric. SKIN: Normal color, turgor and temperature. No ulcerations or rashes noted. Impression: Dyspnea secondary to acute on chronic diastolic CHF complicated with Covid pneumonia with history of Covid in the past currently vaccinated Atrial fibrillation with RVR on chronic anticoagulation therapy Hypertension Hyperlipidemia GERD Anemia of chronic disease with iron deficiency Plan: Dyspnea secondary to acute on chronic diastolic CHF complicated with Covid pneumonia with history of Covid in the past currently vaccinated: Patient doing better now. Patient received IV Lasix in the emergency room. He also received IV Lopressor and digoxin. Rate better controlled. Patient had been having some mild wheezing. Patient with history of Covid pneumonia in the past about 2 months ago. Patient with positive Covid at this time. Suspect acute on chronic diastolic CHF with Covid. Currently on room air. Maintain oxygen above 90%. Will start oral prednisone and vitamin supplementation for Covid. Continue IV Lasix for CHF. Will consult cardiology and pulmonology for further recommendation. Will monitor closely. Recheck chest x-ray tomorrow. Continue to monitor CRP and ferritin along with lab. Case discussed with patient and daughter. Anticipate continued improvement over the next 24 to 48 hours. Atrial fibrillation with RVR on chronic anticoagulation therapy: Rate was slightly elevated in the emergency room. Patient was given IV Lopressor and digoxin. Patient currently on amiodarone. Continue amiodarone 200 mg 1 pill twice daily. Daughter reports increased nausea, constipation with amiodarone. Will discuss with cardiology. Continue Eliquis 5 mg 1 pill twice daily. Hypertension: Continue valsartan 160 mg twice daily. Hyperlipidemia: Continue Lipitor 20 mg daily. GERD: Continue Protonix Anemia of chronic disease with iron deficiency: Continue with iron supplementation. Will provide stool softener. Code Status: Full Code DVT prophylaxis: Eliquis Advanced Care Planning-30 minutes: Home at discharge Discharge Plan: Home Plan to discharge in: 48 Hours - Advance Directives Does patient have a Living Will: No Does patient have a Durable POA for Healthcare: No - Code Status/Comfort Care Code Status Assessed: Yes (Full code) Time Spent Managing Pts Care (In Minutes): 55
[2021-06-03 10:23] LABS: Platelet Estimate ADEQ; White Blood Cell Scan OK (OK)
[2021-06-03 10:24] LABS: Anisocytosis 2+; Blood Morphology Comment NOTED (NOT SEEN); Hypochromasia 1+; Ovalocytes 1+
[2021-06-03] MEDS ORDERED: PIPERACIL/TAZO 3.375 GM VIAL IV ONE (10:33)
[2021-06-03] MEDS ORDERED: POTASSIUM 25 MEQ EFFERV TAB ONE (10:33)
[2021-06-03] MEDS ORDERED: NA CHLORIDE 0.9% 100 ML ONE (10:33)
[2021-06-03 10:34] LABS: Ferritin 106.1 ng/mL (26-388)
[2021-06-03 11:06] LABS: Urine Blood Negative (Negative); Urine Glucose Negative (Negative); Urine Protein Negative (Negative); Urine Specific Gravity 1.015 (1.005-1.030)
[2021-06-03] MEDS ORDERED: INFLUENZA VACCINE (for 6+ mo) 0.5 ML DOSE IMVAC ONE (12:00)
[2021-06-03 12:03] VITALS: BMI 29.7
[2021-06-03] MEDS ORDERED: ONDANSETRON 4 MG/2 ML VIAL IV PRN (12:04)
[2021-06-03] MEDS ORDERED: ACETAMINOPHEN 500 MG TAB PO PRN (12:04)
[2021-06-03 12:57] LABS: Creatine Phosphokinase 46 U/L (39-308); Troponin I 0.02 ng/mL (0.0-0.045)
[2021-06-03 13:12] LABS: CKMB Creatine Kinase MB < 1.0 ng/mL (1.0-3.6)
[2021-06-03 13:23] LABS: Urine Appearance CLEAR (Clear); Urine Bilirubin NEGATIVE (Negative); Urine Blood NEGATIVE (Negative); Urine Color YELLOW (Yellow); Urine Glucose NEGATIVE (Negative); Urine Protein NEGATIVE (Negative); Urine Specific Gravity <=1.005 (1.005-1.030); Urine Urobilinogen 0.2 mg/dL (0.2-1.0)
[2021-06-03 13:31] LABS: Urine Microscopic Reflex NO UMIC
[2021-06-03] MEDS: ASCORBIC ACID 500 MG TABLET PO SCH ×2 (14:54→20:09)
[2021-06-03] MEDS ORDERED: FUROSEMIDE 20 MG/ 2ML VIAL IV SCH (17:00)
[2021-06-03 19:39] LABS: Creatine Phosphokinase 35 U/L (39-308)
[2021-06-03 19:48] LABS: CKMB Creatine Kinase MB < 1.0 ng/mL (1.0-3.6)
[2021-06-03] MEDS: FERROUS SULFATE 325 MG TAB PO SCH (20:09)
[2021-06-03] MEDS: APIXABAN 5 MG TABLET PO SCH (20:09)
[2021-06-03] MEDS: predniSONE 20 MG TAB PO SCH (20:10)
[2021-06-03] MEDS: VALSARTAN 80 MG TAB PO SCH (20:19)
[2021-06-03] MEDS ORDERED: MELATONIN 5 MG TABLET PO PRN (20:42)
[2021-06-03] MEDS ORDERED: METOPROLOL TAR 50 MG TAB PO SCH (21:00)
[2021-06-03] MEDS ORDERED: AMIODARONE HCL 200 MG TAB PO SCH (21:00)
[2021-06-03] MEDS ORDERED: VALSARTAN 160 MG TAB PO SCH (21:00)
[2021-06-03] MEDS ORDERED: ATORVASTATIN 20 MG TAB PO SCH (21:00)
[2021-06-04 05:10] LABS: Absolute Lymphocytes (CBC) 0.6 K/uL (0.7-4.9); Basophils % 0.4 % (0-1.3); Hematocrit 29.8 % (39.6-49.0); Lymphocytes % 9.7 % (15.3-44.8); MPV 8.2 fL (7.6-11.3); RBC Red Blood Cell Count 3.69 M/uL (4.33-5.43)
[2021-06-04 05:53] LABS: Albumin 2.9 g/dL (3.4-5.0); Bilirubin Total 0.6 mg/dL (0.2-1.0); Potassium 4.5 mmol/L (3.5-5.1); Protein, Total 6.5 g/dL (6.4-8.2)
[2021-06-04 05:54] LABS: C-Reactive Protein 97.7 mg/L (<3.00); Ferritin 120.5 ng/mL (26-388); Magnesium 2.5 mg/dL (1.8-2.4)
--- NOTE | 2021-06-04 06:00 | P.DS ---
Admission Date: 06/03/21 Discharge Date: 06/04/21 Primary Care Provider: Dr. Deshpande; Cardiology-Dr. Westbrook Disposition: ROUTINE DISCHARGE Discharge Condition: GOOD Reason for Admission: Shortness of breath, wheezing Consultations: Pulmonary-Dr. Dietz Cardiology-Dr. Westbrook Procedures: COVID: Positive Chest x-ray: COMPARISON: April 28 TECHNIQUE: AP portable chest image was obtained 06/03/2021 8:12 am . FINDINGS: Right lung base interstitial and alveolar opacities are present, slight increase from the prior examination. No large mass or dense consolidation seen. Mild cardiomegaly without vascular engorgement. Heart size matches comparison. No measurable pleural effusion and no pneumothorax. No acute bony abnormality seen. No acute aortic findings suspected. IMPRESSION: Suspected right lung base pneumonia. Correlation is needed with any supporting clinical or laboratory findings. Stable, mild cardiomegaly without other findings of significant failure or volume overload. Follow up CXR: COMPARISON: June 03, 2021 FINDINGS: Mild worsening in the right lung opacities. Left lung probably is clear. Heart remains enlarged. Small pleural effusions may be present IMPRESSION: Mild worsening in right lung opacities which may indicate pneumonia Upper lobe vessels are prominent indicative of pulmonary venous hypertension Medical Problem List: Dyspnea secondary to acute on chronic diastolic CHF complicated with Covid pneumonia with history of Covid in the past currently vaccinated Atrial fibrillation with RVR on chronic anticoagulation therapy Hypertension Hyperlipidemia GERD Anemia of chronic disease with iron deficiency Chronic constipation Brief History of Present Illness: 75-year-old male with history of atrial fibrillation on chronic anticoagulation therapy, hypertension, anemia chronic disease with iron deficiency, hyperlipidemia. Patient presented to emergency room with increasing shortness of breath, wheezing and cough. Patient with history of Covid pneumonia in the past. P luis has received Covid vaccine. Over the last several days patient has had increasing shortness of breath especially overnight. Mild edema to the lower extremity noted. Patient takes Lasix. Patient denies any significant fever. Denies any significant chest pain. Patient reports some nausea and constipation with amiodarone. Patient came to the ER for further evaluation. Patient evaluated emergency room patient was in A. fib with rapid ventricular rate with rate around 115. Patient received IV Lopressor in the emergency room along with Lasix and digoxin. Heart rate improved. Patient overall stable. Chest x-ray shows CHF pattern with possible pneumonia. White count 8.5, hemoglobin 8.6. Platelet count 316. Sodium 139, potassium 3.4. BUN 13, creatinine 0.9. GFR 77. Glucose 120. Lactic acid negative. BNP elevated at 2300. Patient admitted for further evaluation and treatment. Hospital Course: Patient presented with dyspnea secondary to acute on chronic diastolic CHF complicated with Covid pneumonia. Patient with history of Covid pneumonia in the past. Patient was admitted for treatment. Patient received IV Lasix with improvement. Patient was seen and evaluated by pulmonology and cardiology. Patient with underlying history of atrial fibrillation, hypertension, hyperlipidemia, GERD and anemia chronic disease with iron deficiency. Patient also with rapid ventricular rate. Patient was given metoprolol IV and digoxin in the ER with improvement. Patient had been previously on amiodarone 200 mg 1 pill twice daily. Patient and daughter had reported worsening symptoms with amiodarone. This was discussed in detail with cardiology. Amiodarone was discontinued after discussion with cardiology. Patient continued with metoprol ol. Patient has done well with diuresis. Patient with atrial fibrillation with rate controlled. Blood pressure stable on metoprolol. Pulmonology recommended to continue prednisone and vitamin supplementation. At discharge patient without significant shortness of breath. Patient on room air. Vital signs stable. At discharge for his CHF the patient will continue with a 1500 cc/day fluid restriction and low-salt diet. Recommend to monitor his weight daily. If his weight increases by more than 5 pounds he is to contact his PCP or cardiology for further recommendation. At discharge patient will continue with Lasix 40 mg daily. Recommend follow-up with PCP and cardiology within 1 week to follow-up his hospitalization and continue his care. Patient may get echocardiogram as an outpatient with cardiology. For his atrial fibrillation with RVR on chronic anticoagulation therapy, the patient has improved with diuresis and with metoprolol only. As mentioned above amiodarone has been discontinued due to his history of side effects with amiodarone including dyspnea, constipation and fatigue. Patient has done well with metoprolol only. At discharge patient with atrial fibrillation with rate controlled. At discharge patient will continue with aspirin 81 mg daily, Eliquis 5 mg 1 pill twice daily, and metoprolol 25 mg 1 pill twice daily. Recommend to monitor his blood pressure and heart rate closely. If heart rate increases metoprolol may need to be further adjusted. This can be done with the help of his PCP or cardiology. Recommend follow-up with cardiology within 1 we ek. Patient with hypertension. As mentioned above blood pressure medication has been adjusted. At discharge patient will continue with metoprolol 25 mg 1 pill twice daily. Recommend to maintain blood pressure less than 130/80. If blood pressure remains above 140/90 adjustment in his medication may be required. This can be done with the help of his PCP. Patient with hyperlipidemia. At discharge patient will continue with Lipitor 20 mg daily. Patient with GERD. At discharge patient will continue with Protonix 40 mg 1 pill twice daily. This can be decreased over the next 2 to 4 weeks to once daily. This can be done with the help of his PCP. Patient with history of anemia of chronic disease with iron deficiency. Recommend to continue iron 325 mg 1 pill twice daily. Patient may take stool softener as iron may cause some constipation. Patient with chronic constipation. This may be related to his iron and recent use of amiodarone. As mentioned above amiodarone has been discontinued. Patient will need to continue with his iron supplementation. Patient may take stool softener daily. Patient may take [id number] MiraLAX as needed. If this persists recommend GI evaluation as an outpatient. Patient will be provided lactobacillus 1 pill 3 times a day as well. For his Covid infection patient will continue with prednisone 20 mg 1 pill twice daily for 7 days then 1 pill once daily for 7 days. Patient will also continue with vitamin supplementation including vitamin C 500 mg 1 pill 3 times a day, vitamin D 2000 units daily, thiamine 100 mg daily, and zinc 220 mg daily. Patient will need to continue with Covid recommendations including 10 days of isolation, facemask use, social distancing, and handwashing. Recommend to continue incentive spirometer at home. Recommend proning or lying on his side. Recommend follow-up with pulmonology in 1 week to follow-up his hospitalization and continue his care. Vital Signs/Physical Exam: Temp Pulse Resp BP Pulse Ox 97.2 F 79 17 101/60 99 06/04/21 00:00 06/04/21 04:00 06/04/21 04:00 06/04/21 04:00 06/04/21 04:00 General: Alert, In no apparent distress, Oriented x3, Cooperative HEENT: Atraumatic Neck: Supple Respiratory: Clear to auscultation bilaterally Cardiovascular: Other (atrial fibrillation with normal rate) Gastrointestinal: No ascites, No tenderness, No masses, No rebound, No guarding Musculoskeletal: No erythema, No tenderness, No warmth Integumentary: No tenderness/swelling, No erythema, No warmth, No cyanosis Neurological: Normal speech, Normal strength at 5/5 x4 extr, Normal tone Laboratory Data at Discharge: WBC 6.60 K/uL (4.3-10.9) D 06/04/21 04:45 Hgb 9.3 g/dL (13.6-17.9) L 06/04/21 04:45 Hct 29.8 % (39.6-49.0) L 06/04/21 04:45 Plt Count 363 K/uL (152-406) 06/04/21 04:45 PT 17.3 SECONDS (9.5-12.5) H 06/03/21 07:55 INR 1.50 06/03/21 07:55 Sodium 140 mmol/L (136-145) 06/04/21 04:45 Potassium 4.5 mmol/L (3.5-5.1) 06/04/21 04:45 BUN 12 mg/dL (7-18) 06/04/21 04:45 Creatinine 0.88 mg/dL (0.55-1.3) 06/04/21 04:45 Glucose 129 mg/dL (74-106) H 06/04/21 04:45 Magnesium 2.5 mg/dL (1.8-2.4) H 06/04/21 04:45 Total Bilirubin 0.6 mg/dL (0.2-1.0) 06/04/21 04:45 AST 19 U/L (15-37) 06/04/21 04:45 ALT 47 U/L (12-78) 06/04/21 04:45 Alkaline Phosphatase 85 U/L (45-117) 06/04/21 04:45 Troponin I 0.02 ng/mL (0.0-0.045) 06/03/21 12:23 Triglycerides 53 mg/dL (<150) 06/04/21 04:45 Cholesterol 97 mg/dL (<200) 06/04/21 04:45 HDL Cholesterol 40 mg/dL (40-60) 06/04/21 04:45 Cholesterol/HDL Ratio 2.43 06/04/21 04:45 Home Medications: Apixaban [Eliquis] 5 mg PO BID 06/03/21 Aspirin [Aspirin EC 81 MG] 1 tab DAILY 06/03/21 Atorvastatin Calcium 20 mg PO DAILY 06/03/21 Ferrous Sulfate 1 tab BID 06/03/21 Furosemide 40 mg PO DAILY 06/03/21 Ondansetron HCl [Zofran] 1 tab Q12HR PRN 06/03/21 Pantoprazole Sodium [Protonix] 40 mg PO BID 06/03/21 Ascorbic Acid [Vitamin C*] 500 mg PO TID #90 tablet 06/04/21 Cholecalciferol (Vitamin D3) [Vitamin D 1000 Iu Tab*] 2,000 unit PO DAILY #60 tab 06/04/21 Docusate [Colace Cap*] 100 mg PO DAILY #30 cap 06/04/21 Lactobacillus Acidophilus [Acidophilus Lactobacilli] 1 each PO TID #30 capsule 06/04/21 Metoprolol Tartrate [Lopressor*] 25 mg PO BID #60 tab 06/04/21 Thiamine HCl [Vitamin B-1*] 100 mg PO DAILY #30 tablet 06/04/21 Zinc Sulfate [Zinc Sulfate*] 220 mg PO DAILY #30 cap 06/04/21 predniSONE [Prednisone*] 20 mg PO SEECOM #21 tab 06/04/21 New Medications: Lactobacillus Acidophilus [Acidophilus Lactobacilli] 1 each PO TID #30 capsule Docusate [Colace Cap*] 100 mg PO DAILY #30 cap Metoprolol Tartrate [Lopressor*] 25 mg PO BID #60 tab predniSONE [Prednisone*] 20 mg PO SEECOM #21 tab Thiamine HCl [Vitamin B-1*] 100 mg PO DAILY #30 tablet Ascorbic Acid [Vitamin C*] 500 mg PO TID #90 tablet Cholecalciferol (Vitamin D3) [Vitamin D 1000 Iu Tab*] 2,000 unit PO DAILY #60 t ab Zinc Sulfate [Zinc Sulfate*] 220 mg PO DAILY #30 cap Physician Discharge Instructions: Patient presented with dyspnea secondary to acute on chronic diastolic CHF complicated with Covid pneumonia. Patient with history of Covid pneumonia in the past. Patient was admitted for treatment. Patient received IV Lasix with improvement. Patient was seen and evaluated by pulmonology and cardiology. Patient with underlying history of atrial fibrillation, hypertension, hyperlipidemia, GERD and anemia chronic disease with iron deficiency. Patient also with rapid ventricular rate. Patient was given metoprolol IV and digoxin in the ER with improvement. Patient had been previously on amiodarone 200 mg 1 pill twice daily. Patient and daughter had reported worsening symptoms with amiodarone. This was discussed in detail with cardiology. Amiodarone was discontinued after discussion with cardiology. Patient continued with metoprolol. Patient has done well with diuresis. Patient with atrial fibrillation with rate controlled. Blood pressure stable on metoprolol. Pulmonology recommended to continue prednisone and vitamin supplementation. At discharge patient without significant shortness of breath. Patient on room air. Vital signs stable. At discharge for his CHF the patient will continue with a 1500 cc/day fluid restriction and low-salt diet. Recommend to monitor his weight daily. If his weight increases by more than 5 pounds he is to contact his PCP or cardiology for further recommendation. At discharge patient will continue with Lasix 40 mg daily. Recommend follow-up with PCP and cardiology within 1 week to follow-up his hospitalization and continue his care. Patient may get echocardiogram as an outpatient with cardiology. For his atrial fibrillation with RVR on chronic anticoagulation therapy, the patient has improved with diuresis and with metoprolol only. As mentioned above amiodarone has been discontinued due to his history of side effects with amiodarone including dyspnea, constipation and fatigue. Patient has done well with metoprolol only. At discharge patient with atrial fibrillation with rate controlled. At discharge patient will continue with aspirin 81 mg daily, Eliquis 5 mg 1 pill twice daily, and metoprolol 25 mg 1 pill twice daily. Recommend to monitor his blood pressure and heart rate closely. If heart rate increases metoprolol may need to be further adjusted. This can be done with the help of his PCP or cardiology. Recommend follow-up with cardiology within 1 week. Patient with hypertension. As mentioned above blood pressure medication has been adjusted. At discharge patient will continue with metoprolol 25 mg 1 pill twice daily. Recommend to maintain blood pressure less than 130/80. If blood pressure remains above 140/90 adjustment in his medication may be required. This can be done with the help of his PCP. Patient with hyperlipidemia. At discharge patient will continue with Lipitor 20 mg daily. Patient with GERD. At discharge patient will continue with Protonix 40 mg 1 pill twice daily. This can be decreased over the next 2 to 4 weeks to once daily. This can be done with the help of his PCP. Patient with history of anemia of chronic disease with iron deficiency. Recommend to continue iron 325 mg 1 pill twice daily. Patient may take stool softener as iron may cause some constipation. Patient with chronic constipation. This may be related to his iron and recent use of amiodarone. As mentioned above amiodarone has been discontinued. Patient will need to continue with his iron supplementation. Patient may take stool softener daily. Patient may take [id number] MiraLAX as needed. If this persists recommend GI evaluation as an outpatient. Patient will be provided lactobacillus 1 pill 3 times a day as well. For his Covid infection patient will continue with prednisone 20 mg 1 pill twice daily for 7 days then 1 pill once daily for 7 days. Patient will also continue with vitamin supplementation including vitamin C 500 mg 1 pill 3 times a day, vitamin D 2000 units daily, thiamine 100 mg daily, and zinc 220 mg daily. Patient will need to continue with Covid recommendations including 10 days of isolation, facemask use, social distancing, and handwashing. Recommend to continue incentive spirometer at home. Recommend proning or lying on his side. Recommend follow-up with pulmonology in 1 week to follow-up his hospitalization and continue his care. Diet: AHA Activity: Ad zheng Followup: NONE,NONE [Primary Care Provider] - Time spent managing pt's care (in minutes): 55
[2021-06-04] MEDS ORDERED: PANTOPRAZOLE 40MG TABLET PO SCH (06:30)
[2021-06-04] MEDS ORDERED: POLYETHYL GLY 3350 17 GM/DOSE PO PRN (08:31)
--- NOTE | 2021-06-04 08:51 | RAD REPORT ---
EXAM DESCRIPTION: Deshaun Single View06/04/2021 6:56 am CLINICAL HISTORY: Shortness of breath COMPARISON: June 03, 2021 FINDINGS: Mild worsening in the right lung opacities. Left lung probably is clear. Heart remains enlarged. Small pleural effusions may be present IMPRESSION: Mild worsening in right lung opacities which may indicate pneumonia Upper lobe vessels are prominent indicative of pulmonary venous hypertension
[2021-06-04] MEDS ORDERED: LACTOBACILLUS/ACIDOPHILUS TAB PO SCH (09:00)
[2021-06-04] MEDS ORDERED: VITAMIN D 1000 UNIT TAB PO SCH (09:00)
[2021-06-04] MEDS ORDERED: FUROSEMIDE 40 MG TABLET PO SCH (09:00)
[2021-06-04] MEDS ORDERED: METOPROLOL TAR 25 MG TAB PO SCH (09:00)
[2021-06-04] MEDS ORDERED: ZINC SULFATE 220 MG CAP PO SCH (09:00)
[2021-06-04] MEDS: VALSARTAN 80 MG TAB PO SCH (09:00)
[2021-06-04] MEDS ORDERED: THIAMINE HCL 100 MG TABLET PO SCH (09:00)
[2021-06-04 09:49] VITALS: BP 119/53; TEMP 97
[2021-06-04] MEDS: predniSONE 20 MG TAB PO SCH (09:53)
[2021-06-04] MEDS: ASCORBIC ACID 500 MG TABLET PO SCH (09:53)
[2021-06-04] MEDS: APIXABAN 5 MG TABLET PO SCH (09:53)
[2021-06-04] MEDS: FERROUS SULFATE 325 MG TAB PO SCH (09:54)
[2021-06-04] MEDS ORDERED: INFLUENZA VACCINE (for 6+ mo) 0.5 ML DOSE IMVAC ONE (11:00)
--- NOTE | 2021-06-04 11:07 | P.CNS ---
Date of Consult: 06/04/21 Reason for Consult: SOB COVID pos Primary Care Provider: Dr. Deshpande; Cardiology-Dr. Westbrook Chief Complaint: Shortness of breath, wheezing History of Present Illness: Age 75 AW Brendan SOB and wheezing, HX of COIVDpenumonia, Worse last several days, LE edema complaint with TX, found to be Afib Allergies aspirin Allergy (Mild, Verified 08/04/18 08:41) Nausea/Vomiting Home Medications: Apixaban [Eliquis] 5 mg PO BID 06/03/21 Aspirin [Aspirin EC 81 MG] 1 tab DAILY 06/03/21 Atorvastatin Calcium 20 mg PO DAILY 06/03/21 Ferrous Sulfate 1 tab BID 06/03/21 Furosemide 40 mg PO DAILY 06/03/21 Ondansetron HCl [Zofran] 1 tab Q12HR PRN 06/03/21 Pantoprazole Sodium [Protonix] 40 mg PO BID 06/03/21 Ascorbic Acid [Vitamin C*] 500 mg PO TID #90 tablet 06/04/21 Cholecalciferol (Vitamin D3) [Vitamin D 1000 Iu Tab*] 2,000 unit PO DAILY #60 tab 06/04/21 Docusate [Colace Cap*] 100 mg PO DAILY #30 cap 06/04/21 Lactobacillus Acidophilus [Acidophilus Lactobacilli] 1 each PO TID #30 capsule 06/04/21 Metoprolol Tartrate [Lopressor*] 25 mg PO BID #60 tab 06/04/21 Thiamine HCl [Vitamin B-1*] 100 mg PO DAILY #30 tablet 06/04/21 Zinc Sulfate [Zinc Sulfate*] 220 mg PO DAILY #30 cap 06/04/21 predniSONE [Prednisone*] 20 mg PO SEECOM #21 tab 06/04/21 - Past Medical/Surgical History Diabetic: No -: Atrial fibrillation on chronic anticoagulation therapy -: Hypertension -: History of CVA -: Hyperlipidemia -: Anemia of chronic disease with iron deficiency -: GERD -: Incision and drainage right thigh -: cataract sx carol Psychosocial/ Personal History: Patient lives at home. He is - Family History Father Medical History: Diabetes, Stroke - Social History Smoking Status: Never smoker Alcohol use: No CD- Drugs: No Caffeine use: Yes Place of Residence: Home Review of Systems 10-point ROS is otherwise unremarkable General: Weakness Respiratory: Shortness of Breath Cardiovascular: Edema Physical Examination Temp Pulse Resp BP Pulse Ox 97 F 94 H 17 119/53 L 96 06/04/21 08:00 06/04/21 09:57 06/04/21 08:00 06/04/21 09:57 06/04/21 08:00 General: Alert, In no apparent distress, Oriented x3 Respiratory: Crackles/rales Cardiovascular: Edema - Problems (1) CHF (congestive heart failure) Current Visit: Yes Status: Acute Plan: age 75 AW worseing SOB likley CHF exacerbation Hx ofAfib on Amiodarone, BNP elevated, cXRY cardiomegaly. CAfib/ / VS stable poss DC am/ Labs andrays revie wed Qualifiers: Heart failure chronicity: unspecified
[2021-06-04 11:41] VITALS: O2SAT 98
--- NOTE | 2021-06-04 11:59 | CON ---
Date of Consultation: 06/03/2021 Reason For Consultation: Congestive heart failure. History Of Present Illness: Mr. Giles is 75. Came in positive for COVID. Has shortness of yessenia th and cough, congestive heart failure symptoms. Has a history of hypertension, atrial fibrillation, and anemia. Denied any chest pain. Denied any nausea or vomiting or diaphoresis. He himself denie d any palpitation or syncope. He denied fever or chills. Has had cough and shortness of breath. Allergies: NONE. Review of Systems: Negative. Social History: Negative. Family History: As stated above. Review of Systems: Negative. Medications: At home include amiodarone, olmesartan, Eliquis, Lipitor, and Plavix. Physical Examination: Vital Signs: Stable, afebrile. HEENT: Negative. Neck: Supple with no bruit. Chest: Revealed some rales both bases. Cardiac: Revealed a regular rhythm and rate. No murmurs, gallops, or rubs. Abdomen: Benign. Extremities: Revealed no clubbing, cyanosis, or edema. Diagnostic Data: Troponin was negative. BNP was 2305. Chest x-ray showed right lower lobe pneumoni a. No overload. Hemoglobin is 8.6. Positive COVID. Potassium 3.4. Impression And Plan: Atrial fibrillation that has failed amiodarone. I would stop the amiodarone. I would put him on carvedilol instead for his congestive heart failure, treat his COVID, correct his potassium, and get an echocardiogram. We would like to see what his ejection fraction is before star ting SOHEILA inhibitors or Eliquis. He probably should be on a low dose Lasix. Continue the rest of his regimen otherwise. We will see him in the office as soon as he leaves the hospital. MICHAEL/RICHA Voice ID: [id number] Report ID: [id number]
--- NOTE | 2021-06-05 09:02 | EKG ---
Test Date: 2021-06-03 Test Time: 07:24:36 Decontaminator: KENYATTA MEASUREMENT RESULTS: Intervals: Rate: 118 PA: QRSD: 146 QT: 334 QTc: 468 Frederick: P: PA: QRS: 32 T: 73 INTERPRETIVE STATEMENTS: Atrial fibrillation with rapid ventricular response Left bundle branch block Abnormal ECG Compared to ECG 04/28/2021 07:56:42 Left bundle-branch block now present Left ventricular hypertrophy no longer present ST (T wave) deviation no longer present Electronically Signed On 06-05-21 08:57:47 CDT by Jimmy Westbrook
--- NOTE | 2021-06-07 15:12 | PN ---
Date of Progress Note: 06/05/2021 Mr. Giles had come in with dyspnea on exertion. He has improved drastically. His breathing is b elena. He has no complaint. He is in sinus rhythm. Echocardiogram that was done revealed normal ej ection fraction without effusion. I would continue his present regimen. I am comfortable with him g oing home whenever it is okay with primary care physician. MICHAEL/RICHA Voice ID: [id number] Report ID: [id number]
--- NOTE | 2021-06-07 15:24 | PN ---
Date of Progress Note: 06/04/2021 Subjective: The patient had came in with what sounded like acute on chronic diastolic congestive hea rt failure. He is improving, diuresing well. Physical Examination: Vital Signs: Stable, afebrile. He remained in sinus rhythm. Chest: Still shows some rales both bases. Cardiac: Shows regular rhythm and rate with some ectopy. Extremities: Showed mild edema. Laboratory Data: Echocardiogram is pending for tomorrow, 06/05/2021. Assessment And Plan: Continue present regimen for now. I will continue to follow him. MICHAEL/RICHA Voice ID: [id number] Report ID: [id number]
== END 2021-06-04 11:48 | disposition home or self-care (01) ==
LOC: ER 07:07 → ERHOLD 09:32 → 3RD-ICU 11:07
PROVIDERS: ADMIT Family Medicine; ATTEND Family Medicine
DX: I11.0 Hypertensive heart disease with heart failure (principal); I50.33 Acute on chronic diastolic (congestive) heart failure; U07.1 COVID-19; J12.82 Pneumonia due to coronavirus disease 2019; I48.91 Unspecified atrial fibrillation; E78.5 Hyperlipidemia, unspecified; K21.9 Gastro-esophageal reflux disease without esophagitis; D63.8 Anemia in other chronic diseases classified elsewhere; D50.9 Iron deficiency anemia, unspecified; K59.09 Other constipation; E87.6 Hypokalemia; M19.90 Unspecified osteoarthritis, unspecified site; Z79.01 Long term (current) use of anticoagulants; Z79.02 Long term (current) use of antithrombotics/antiplatelets; Z88.6 Allergy status to analgesic agent; Z86.73 Personal history of transient ischemic attack (TIA), and cerebral infarction without residual deficits; Z87.891 Personal history of nicotine dependence; Z82.3 Family history of stroke; Z83.3 Family history of diabetes mellitus
CPT/HCPCS: 96365; 93005; 87040 ×2; 85025 ×2; 80048; 36415; 83735 ×2; 82550 ×2; 85610; 80061; 80076; 83605; 84443; 81003 ×2; 84484 ×2; 82553 ×2; 82728 ×2; 80053; 84145; 83880; 86140 ×2; 71045 ×2; 94010 ×2; 96375; 99285; U0003; J1940 ×3; J1160; J2543; J2405; G0378 ×3; J7512

== ENCOUNTER 2021-06-26 12:42 | Observation (INO) | payer OTHER ==
[2021-06-26 13:49] LABS: Protime INR 1.52
[2021-06-26 13:56] LABS: Absolute Lymphocytes (CBC) 1.1 K/uL (0.7-4.9); Basophils % 0.7 % (0-1.3); Hematocrit 24.3 % (39.6-49.0); Lymphocytes % 17.8 % (15.3-44.8); MPV 7.8 fL (7.6-11.3); RBC Red Blood Cell Count 3.11 M/uL (4.33-5.43)
[2021-06-26 14:09] LABS: ALT/SGPT 33 U/L (12-78); AST/SGOT 11 U/L (15-37); Albumin 3.2 g/dL (3.4-5.0); Alkaline Phosphatase 74 U/L (45-117); BUN Blood Urea Nitrogen 10 mg/dL (7-18); Bicarbonate 25 mmol/L (21-32); Bilirubin Direct 0.1 mg/dL (0-0.2); Bilirubin Total 0.4 mg/dL (0.2-1.0); Glucose Level 118 mg/dL (74-106); Magnesium 2.7 mg/dL (1.8-2.4); NT PRO-BNP 1936 pg/mL (<450); Potassium 3.6 mmol/L (3.5-5.1); Protein, Total 6.4 g/dL (6.4-8.2); Sodium Level 141 mmol/L (136-145); Troponin (Emerg Dept Use Only) < 0.02 ng/mL (0.0-0.045)
--- NOTE | 2021-06-26 14:42 | RAD REPORT ---
EXAM DESCRIPTION: RAD - Chest Single View - 06/26/2021 2:00 pm CLINICAL HISTORY: CHEST PAIN Chest pain. COMPARISON: Chest Single View dated 06/04/2021; Chest Single View dated 06/03/2021; Chest Single Vie w dated 04/28/2021; Chest Single View dated 03/06/2021 FINDINGS: Portable technique limits examination quality. Mild pulmonary edema is present. Heart moderately enlarged in size. No displaced fractures. IMPRESSION: Mild CHF.
[2021-06-26] MEDS ORDERED: FUROSEMIDE 100 MG/10 ML VIAL IV ONE (15:00)
--- NOTE | 2021-06-26 15:24 | ER ---
Nurse's Notes [facility] Name: Oleg Giles Age: 75 yrs Sex: Male : 1945 Arrival Date: 06/26/2021 Time: 12:44 Bed 5 Private MD: Willy eDshpande R Diagnosis: Chest pain, unspecified;Chronic atrial fibrillation-with RVR;Chronic combined systolic (congestive) and diastolic (congestive) heart failure Presentation: 06/26 12:51 Chief complaint: Patient states: SOB and chest pressure today. Pt's daughter states "I aa5 think he's in A-fib and his heart rate was 120". Coronavirus screen: shortness of breath. Ebola Screen: No symptoms or risks identified at this time. Initial Sepsis Screen: Does the patient meet any 2 criteria? HR > 90 bpm. Does the patient have a suspected source of infection? No. Patient's initial sepsis screen is negative. Risk Assessment: Do you want to hurt yourself or someone else? Patient reports no desire to harm self or others. Onset of symptoms was June 26, 2021. 12:51 Acuity: ALEXANDREA 2 aa5 12:51 Method Of Arrival: Ambulatory aa5 Triage Assessment: 13:17 General: Appears in no apparent distress. Behavior is calm, cooperative, appropriate ll1 for age. Pain: Denies pain. EENT: Reports blurred vision. Cardiovascular: Heart tones S1 S2 Rhythm is atrial flutter with RVR. Cardiovascular: Parent/caregiver reports patient has had most likely in A fib again. HR 120 at home. Respiratory: Reports shortness of breath at rest Airway is patent Trachea midline Respiratory effort is even, unlabored, Respiratory pattern is regular, symmetrical. Historical: - Allergies: 12:52 Aspirin; aa5 - Home Meds: 12:53 Eliquis 5 mg oral tab 1 tab 2 times per day [Active]; metoprolol tartrate 25 mg oral aa5 tab 2 times per day [Active]; furosemide 40 mg oral tab once daily [Active]; omeprazole 40 mg Oral cpDR 2 times per day [Active]; aspirin 81 mg Oral tab daily [Active]; atorvastatin 20 mg oral tab 1 tab once daily [Active]; docusate sodium 100 mg Oral cap once daily [Active]; - PMHx: 12:52 Arthritis; Atrial fibrillation; Hypertensive disorder; aa5 - Immunization history:: Client reports receiving the Charanjit \\T\\ Charanjit single-dose vaccine. - Social history:: Smoking status: Patient denies any tobacco usage or history of. Screenin:19 Abuse screen: Denies threats or abuse. Nutritional screening: No deficits noted. ll1 Tuberculosis screening: No symptoms or risk factors identified. Fall Risk Secondary diagnosis (15 points) A fib. IV access (20 points). Gait- Weak (10 pts.). Total Orellana Fall Scale indicates High Risk Score (45 or more points). Fall prevention measures have been instituted. Side Rails Up X 2 Placed Close to Nursing Station Frequent Obs/Assessments Occuring Family Present and informed to notify staff if the need to leave the bedside As available patient and family educated on Fall Prevention Program and Strategies. Assessment: 13:00 General: SEE TRIAGE NOTE. bp 14:15 Reassessment: No changes from previously documented assessment. Patient and/or family ll1 updated on plan of care and expected duration. Pain level reassessed. Patient is alert, oriented x 3, equal unlabored respirations, skin warm/dry/pink. 15:08 Reassessment: No changes from previously documented assessment. Patient and/or family ll1 updated on plan of care and expected duration. Pain level reassessed. Patient is alert, oriented x 3, equal unlabored respirations, skin warm/dry/pink. 16:10 Reassessment: No changes from previously documented assessment. Patient and/or family ll1 updated on plan of care and expected duration. Pain level reassessed. Patient is alert, oriented x 3, equal unlabored respirations, skin warm/dry/pink. Daughter going home. Kaylah Ottoniel [phone]. 17:10 Reassessment: No changes from previously documented assessment. Patient and/or family ll1 updated on plan of care and expected duration. Pain level reassessed. Patient is alert, oriented x 3, equal unlabored respirations, skin warm/dry/pink. 18:10 Reassessment: No changes from previously documented assessment. Patient and/or family ll1 updated on plan of care and expected duration. Pain level reassessed. Patient is alert, oriented x 3, equal unlabored respirations, skin warm/dry/pink. 18:59 Reassessment: Notified Kaylah (daughter) of patients room number. Will go upstairs ll1 after shift change. . Vital Signs: 12:51 BP 150 / 90; Pulse 114; Resp 20 S; Temp 97.7(TE); Pulse Ox 100% on R/A; Weight 84.37 kg aa5 (R); Height 5 ft. 6 in. (167.64 cm) (R); 15:08 BP 133 / 78; Pulse 100; Resp 20; Pulse Ox 100% ; ll1 15:45 BP 124 / 65; Pulse 77; Resp 17; Pulse Ox 100% on R/A; ll1 16:18 BP 114 / 78; Pulse 81; Resp 19; Pulse Ox 99% on R/A; ll1 17:10 BP 123 / 71; Pulse 85; Resp 19; Pulse Ox 100% ; ll1 18:41 BP 117 / 71; Pulse 92; Resp 18; Pulse Ox 100% on R/A; ll1 12:51 Body Mass Index 30.02 (84.37 kg, 167.64 cm) aa5 ED Course: 12:44 Patient arrived in ED. am2 12:45 Willy Deshpande MD is Private Physician. am2 12:51 Arm band placed on. aa5 12:52 Triage completed. aa5 12:53 Brda Arita PA is PHCP. jr8 12:53 Walker Smith MD is Attending Physician. jr8 12:58 Monica Wood, DI is Primary Nurse. ll1 13:00 No provider procedures requiring assistance completed. bp 13:10 Missed attempt(s): 22 gauge in right antecubital area. Bleeding controlled, band aid ll1 applied, catheter tip intact. 13:12 Missed attempt(s): 22 gauge in left hand. Bleeding controlled, band aid applied, ll1 catheter tip intact. 13:19 Patient has correct armband on for positive identification. Bed in low position. Call ll1 light in reach. Side rails up X 1. monitor tech on. Pulse ox on. NIBP on. 13:40 Inserted saline lock: 22 gauge in right forearm, using aseptic technique. Blood bp collected. 14:00 XRAY Chest (1 view) In Process Unspecified. EDMS 15:23 Gabino Navarro DO is Hospitalizing Provider. jr8 19:33 Primary Nurse role handed off by Monica Wood, RN mw2 20:01 Casie Neves is Primary Nurse. tw5 Administered Medications: 15:06 Drug: Lasix (furosemide) 60 mg Route: IVP; Site: right antecubital; ll1 16:20 Follow up: Response: No adverse reaction ll1 15:40 Drug: Metoprolol 5 mg Route: IVP; Site: right antecubital; ll1 16:20 Follow up: Response: No adverse reaction ll1 Output: 15:08 Urine: 800ml; Total: 800ml. ll1 15:41 Urine: 550ml; Total: 1350ml. ll1 Outcome: 15:24 Decision to Hospitalize by Provider. jr8 19:13 Admitted to Med/surg Report called to Attempted to call report. Spoke to Sasha, she tw5 stated nurses are in the middle of getting report and will call back when they are ready. 20:05 Admitted to Med/surg Report called to Report called to Theron SEVILLA tw5 20:05 Condition: stable 20:22 Patient left the ED. tw5 Signatures: Dispatcher [employer] EDMS Chayito Arriaga, RN RN aa5 Brad Arita PA PA jr8 Ria Hernandez amTaz Blue RN RN Margaux Bray mw2 Monica Wood RN RN ll1 Casie Neves tw5 Corrections: (The following items were deleted from the chart) 12:52 12:52 Immunization history: Client reports receiving the 2nd dose of the Covid vaccine, puneet aa5
--- NOTE | 2021-06-26 15:25 | EDPHYS ---
Physician Documentation [facility] Name: Oleg Giles Age: 75 yrs Sex: Male : 1945 Arrival Date: 06/26/2021 Time: 12:44 Bed 5 Private MD: Willy Deshpande R ED Physician Walker Smith HPI: 06/26 14:54 This 75 yrs old Male presents to ER via Ambulatory with complaints of afib. jr8 14:54 Onset: The symptoms/episode began/occurred acutely, today. Associated signs and jr8 symptoms: Pertinent positives: shortness of breath. Modifying factors: The patient symptoms are alleviated by nothing, the patient symptoms are aggravated by nothing. The patient has experienced a previous episode. The patient has not recently seen a physician. This is a 75-year-old male patient that presented to the emergency room with complaints of rapid heartbeat and shortness of breath. Patient has a known history of atrial fibrillation currently on metoprolol and Eliquis. Stated that he has been doing well for a while. All of a sudden today felt that his heart rate was racing and he had become slightly lightheaded and more short of breath than normal. Daughter of patient called and brought patient to the emergency room for further evaluation.. Historical: - Allergies: 12:52 Aspirin; aa5 - Home Meds: 12:53 Eliquis 5 mg oral tab 1 tab 2 times per day [Active]; metoprolol tartrate 25 mg oral aa5 tab 2 times per day [Active]; furosemide 40 mg oral tab once daily [Active]; omeprazole 40 mg Oral cpDR 2 times per day [Active]; aspirin 81 mg Oral tab daily [Active]; atorvastatin 20 mg oral tab 1 tab once daily [Active]; docusate sodium 100 mg Oral cap once daily [Active]; - PMHx: 12:52 Arthritis; Atrial fibrillation; Hypertensive disorder; aa5 - Immunization history:: Client reports receiving the Charanjit \\T\\ Charanjit single-dose vaccine. - Social history:: Smoking status: Patient denies any tobacco usage or history of. ROS: 14:54 Eyes: Negative for injury, pain, redness, and discharge, ENT: Negative for injury, jr8 pain, and discharge, Neck: Negative for injury, pain, and swelling, Abdomen/GI: Negative for abdominal pain, nausea, vomiting, diarrhea, and constipation, Back: Negative for injury and pain, MS/Extremity: Negative for injury and deformity, Skin: Negative for injury, rash, and discoloration, Neuro: Negative for headache, weakness, numbness, tingling, and seizure. 14:54 Cardiovascular: Positive for palpitations. 14:54 Respiratory: Positive for shortness of breath. Exam: 14:54 Constitutional: This is a well developed, well nourished patient who is awake, alert, jr8 and in no acute distress. Neck: Trachea midline, no thyromegaly or masses palpated, and no cervical lymphadenopathy. Supple, full range of motion without nuchal rigidity, or vertebral point tenderness. No Meningismus. Respiratory: Lungs have equal breath sounds bilaterally, clear to auscultation and percussion. No rales, rhonchi or wheezes noted. No increased work of breathing, no retractions or nasal flaring. Abdomen/GI: Soft, non-tender, with normal bowel sounds. No distension or tympany. No guarding or rebound. No evidence of tenderness throughout. Back: No spinal tenderness. No costovertebral tenderness. Full range of motion. Skin: Warm, dry with normal turgor. Normal color with no rashes, no lesions, and no evidence of cellulitis. MS/ Extremity: Pulses equal, no cyanosis. Neurovascular intact. Full, normal range of motion. Neuro: Awake and alert, GCS 15, oriented to person, place, time, and situation. Cranial nerves II-XII grossly intact. Motor strength 5/5 in all extremities. Sensory grossly intact. Cerebellar exam normal. 14:54 Cardiovascular: Rate: tachycardic, Rhythm: irregularly irregular, Pulses: Pulses are 2+ in right radial artery and left radial artery. Heart sounds: normal, no S3 or S4, no murmur, no rub, no gallop, Edema: is not appreciated, JVD: is not appreciated. Vital Signs: 12:51 BP 150 / 90; Pulse 114; Resp 20 S; Temp 97.7(TE); Pulse Ox 100% on R/A; Weight 84.37 kg aa5 (R); Height 5 ft. 6 in. (167.64 cm) (R); 15:08 BP 133 / 78; Pulse 100; Resp 20; Pulse Ox 100% ; ll1 15:45 BP 124 / 65; Pulse 77; Resp 17; Pulse Ox 100% on R/A; ll1 16:18 BP 114 / 78; Pulse 81; Resp 19; Pulse Ox 99% on R/A; ll1 17:10 BP 123 / 71; Pulse 85; Resp 19; Pulse Ox 100% ; ll1 18:41 BP 117 / 71; Pulse 92; Resp 18; Pulse Ox 100% on R/A; ll1 12:51 Body Mass Index 30.02 (84.37 kg, 167.64 cm) aa5 MDM: 12:53 Patient medically screened. jr8 14:54 Data reviewed: vital signs, nurses notes, lab test result(s), EKG, radiologic studies, jr8 plain films. Data interpreted: Pulse oximetry: on room air is 100 %. Interpretation: normal. Counseling: I had a detailed discussion with the patient and/or guardian regarding: the historical points, exam findings, and any diagnostic results supporting the discharge/admit diagnosis, lab results, radiology results. 15:23 Counseling: I had a detailed discussion with the patient and/or guardian regarding: the jr8 need for further work-up and treatment in the hospital. 06/26 12:57 Order name: Basic Metabolic Panel; Complete Time: 14:11 [facility] 06/26 12:57 Order name: CBC with Diff; Complete Time: 16:10 [facility] 06/26 12:57 Order name: LFT's; Complete Time: 14:11 [facility] 06/26 12:57 Order name: Magnesium; Complete Time: 14:11 [facility] 06/26 12:57 Order name: NT PRO-BNP; Complete Time: 14:11 [facility] 06/26 12:57 Order name: PT-INR; Complete Time: 14:03 [facility] 06/26 12:57 Order name: Troponin (emerg Dept Use Only); Complete Time: 14:11 [facility] 06/26 12:57 Order name: XRAY Chest (1 view); Complete Time: 14:42 [facility] 06/26 12:57 Order name: EKG; Complete Time: 12:58 [facility] 06/26 15:42 Order name: COVID-19 SARS RT PCR (Document "Date of Onset" if Symptomatic) bd 06/26 15:42 Order name: SARS-COV-2 RT PCR; Complete Time: 17:22 EDMS 06/26 16:03 Order name: CBC Smear Scan; Complete Time: 16:10 [facility] 06/26 12:57 Order name: Cardiac monitoring; Complete Time: 13:00 [facility] 06/26 12:57 Order name: EKG - Nurse/Tech; Complete Time: 13:00 8 06/26 12:57 Order name: IV Saline Lock; Complete Time: 13:00 8 06/26 12:57 Order name: Labs collected and sent; Complete Time: 13:00 8 06/26 12:57 Order name: O2 Per Protocol; Complete Time: 13:00 jr8 06/26 12:57 Order name: O2 Sat Monitoring; Complete Time: 13:00 8 Administered Medications: 15:06 Drug: Lasix (furosemide) 60 mg Route: IVP; Site: right antecubital; ll1 16:20 Follow up: Response: No adverse reaction ll1 15:40 Drug: Metoprolol 5 mg Route: IVP; Site: right antecubital; ll1 16:20 Follow up: Response: No adverse reaction ll1 Disposition: 06/27 09:09 Co-signature as Attending Physician, Walker Smith MD I agree with the assessment and sp3 plan of care. Disposition Summary: 06/26/21 15:24 Hospitalization Ordered Hospitalization Status: Observation [facility] Provider: Gabino Navarro [facility] Location: Telemetry/MedSurg (observation) [facility] Condition: Stable [facility] Problem: new 8 Symptoms: have improved [facility] Bed/Room Type: [place] [id number] Room Assignment: 215(06/26/21 18:44) dw Diagnosis - Chest pain, unspecified jr8 - Chronic atrial fibrillation - with RVR jr8 - Chronic combined systolic (congestive) and diastolic (congestive) heart failure [facility] Forms: - Medication Reconciliation Form jr8 - SBAR form jr8 Signatures: Dispatcher [employer] EDWY Cecile Ghosh RN RN dw Calderon, Audri, RN RN aa5 Roszak, Josh, PA PA 8 Monica Wood RN RN ll1 Walker Smith MD MD sp3 Corrections: (The following items were deleted from the chart) 06/26 12:52 12:52 Immunization history: Client reports receiving the 2nd dose of the Covid vaccine, aa5 aa5 14:57 14:54 Cardiovascular: Rate: tachycardic, Rhythm: regular, Pulses: Pulses are 2+ in jr8 right radial artery and left radial artery. 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
[2021-06-26] MEDS ORDERED: METOPROLOL TARTRATE 5 MG/5 ML INJ IV ONE (15:34)
[2021-06-26 16:06] LABS: Anisocytosis 2+; Blood Morphology Comment NOTED (NOT SEEN); Platelet Estimate ADEQ; Poikilocytosis 3+; White Blood Cell Scan OK (OK)
--- NOTE | 2021-06-26 16:15 | P.HP ---
Certification for Inpatient Patient admitted to: Observation With expected LOS: <2 Midnights Patient will require the following post-hospital care: None Practitioner: I am a practitioner with admitting privileges, knowledge of patient current condition, hospital course, and medical plan of care. Services: Services provided to patient in accordance with Admission requirements found in Title 42 Section 412.3 of the Code of Federal Regulations Patient History Date of Service: 06/26/21 Primary Care Provider: Dr. Deshpande Reason for admission: Shortness of breath History of Present Illness: 75-year-old male with history of atrial fibrillation on chronic anticoagulation therapy, diastolic CHF, iron deficiency anemia, hypertension, hyperlipidemia and GERD. Patient reports increasing shortness of breath over the past several days. Some edema to the lower extremity noted. Patient also reports some chest pain and difficulty sleeping at night. He came to the ER for further evaluation. He denied any nausea, vomiting. Patient reports that he is to see GI in the near future for hemorrhoid treatment. In the ER patient was evaluated. Heart rate was in the 130s. Patient given IV Lopressor in the ER with improvement. Chest x-ray showed pulmonary edema. Patient given IV Lasix. Hemoglobin 7.3. BMP reviewed. BNP 1936. Troponin negative. Patient was admitted for treatment. Allergies aspirin Allergy (Mild, Verified 08/04/18 08:41) Nausea/Vomiting Home medications list reviewed: Yes Home Medications: Apixaban [Eliquis] 5 mg PO BID 06/03/21 Aspirin [Aspirin EC 81 MG] 1 tab DAILY 06/03/21 Atorvastatin Calcium 20 mg PO DAILY 06/03/21 Ferrous Sulfate 1 tab BID 06/03/21 Furosemide 40 mg PO DAILY 06/03/21 Ondansetron HCl [Zofran] 1 tab Q12HR PRN 06/03/21 Pantoprazole Sodium [Protonix] 40 mg PO BID 06/03/21 Ascorbic Acid [Vitamin C*] 500 mg PO TID #90 tablet 06/04/21 Cholecalciferol (Vitamin D3) [Vitamin D 1000 Iu Tab*] 2,000 unit PO DAILY #60 tab 06/04/21 Docusate [Colace Cap*] 100 mg PO DAILY #30 cap 06/04/21 Lactobacillus Acidophilus [Acidophilus Lactobacilli] 1 each PO TID #30 capsule 06/04/21 Metoprolol Tartrate [Lopressor*] 25 mg PO BID #60 tab 06/04/21 Thiamine HCl [Vitamin B-1*] 100 mg PO DAILY #30 tablet 06/04/21 Zinc Sulfate [Zinc Sulfate*] 220 mg PO DAILY #30 cap 06/04/21 predniSONE [Prednisone*] 20 mg PO SEECOM #21 tab 06/04/21 - Past Medical/Surgical History Diabetic: No -: Atrial fibrillation on chronic anticoagulation therapy -: Hypertension -: History of CVA -: Hyperlipidemia -: Anemia of chronic disease with iron deficiency -: GERD -: Diastolic CHF -: History of Covid infection, vaccinated -: Incision and drainage right thigh -: cataract sx carol Psychosocial/ Personal History: Patient lives at home. He is - Family History Father -: Diabetes, Stroke - Social History Smoking Status: Unknown if ever smoked Alcohol use: No CD- Drugs: No Caffeine use: Yes Place of Residence: Home Review of Systems General: Weakness, Malaise, As per HPI Eyes: Unremarkable ENT: Unremarkable Respiratory: Shortness of Breath, SOB with Excertion, As per HPI Cardiovascular: Chest Pain, As per HPI Gastrointestinal: As per HPI Genitourinary: Unremarkable Musculoskeletal: Unremarkable Integumentary: As per HPI Neurological: Unremarkable Lymphatics: Unremarkable Physical Examination - Studies Laboratory Data (last 24 hrs) 06/26/21 13:40: PT 17.5 H, INR 1.52 06/26/21 13:40: WBC 6.00, Hgb 7.3 L, Hct 24.3 L, Plt Count 271 06/26/21 13:40: Sodium 141, Potassium 3.6, BUN 10, Creatinine 0.97, Glucose 118 H, Magnesium 2.7 H, Total Bilirubin 0.4, AST 11 L, ALT 33, Alkaline Phosphatase 74 Assessment and Plan - Plan COVID: Chest x-ray: Physical Exam: GENERAL: The patient is a well-developed, well-nourished, in no apparent distress. Alert and oriented x3. VITAL SIGNS: Reviewed HEENT: Head is normocephalic and atraumatic. Extraocular muscles are intact. Pupils are equal, round, and reactive to light and accommodation. Nares appeared normal. Mouth is well hydrated and without lesions. Mucous membranes are moist. NECK: Supple. No carotid bruits. No lymphadenopathy or thyromegaly. LUNGS: Some crackles to the bases.. HEART: A. fib rate better controlled between 90 and 100 ABDOMEN: Soft, nontender, and nondistended. Positive bowel sounds. No hepatosplenomegaly was noted. EXTREMITIES: Minimal pitting edema to the lower extremity NEUROLOGIC: The patient is oriented to person, place and time. Strength and sensation are grossly intact. Face is symmetric. SKIN: Normal color, turgor and temperature. No ulcerations or rashes noted. Impression: Atrial fibrillation with RVR on anticoagulation therapy Acute on chronic diastolic CHF Hypertension Acute anemia with iron deficiency anemia History of hemorrhoids GERD Hyperlipidemia Plan: Atrial fibrillation with RVR on chronic anticoagulation therapy: Patient admitted for further evaluation and observation. We will continue to monitor cardiac enzymes and telemetry. Patient given IV metoprolol in the emergency room. His metoprolol had been decreased on the last hospitalization. We will increase metoprolol to 50 mg 1 pill twice daily for better rate control. Continue Eliquis 5 mg 1 pill twice daily. Will continue to monitor his heart rate closely and adjust medication accordingly. Will consult cardiology for further recommendation. Anticipate improvement over the next 24 hours with likely discharge tomorrow. Acute on chronic diastolic CHF: Patient given IV Lasix in the emergency room. We will continue with Lasix IV 40 mg 1 pill twice daily. Teach on 1500 cc/day fluid restriction. Likely home on Lasix 40 mg 1 pill twice daily. Hypertension: Continue with metoprolol. Metoprolol increased for better rate control and blood pressure control. Acute anemia with iron deficiency anemia: Well transfuse 1 unit of blood to maintain hemoglobin above 7.5. Patient is to see GI for treatment of his hemorrhoids soon. Patient has not been taking his iron medication. We will continue with oral iron supplementation at discharge. History of hemorrhoids: Will see GI in the near future for hemorrhoid treatment. GERD: Continue with PPI. Hyperlipidemia: We will continue with home medication Code Status: Full Code DVT prophylaxis: Eliquis Advanced Care Planning-30 minutes: Home at discharge Discharge Plan: Home Plan to discharge in: 24 Hours - Advance Directives Does patient have a Living Will: No Does patient have a Durable POA for Healthcare: No - Code Status/Comfort Care Code Status Assessed: Yes (Patient is full code) Time Spent Managing Pts Care (In Minutes): 55
[2021-06-26] MEDS ORDERED: METOPROLOL TARTRATE 5 MG/5 ML INJ IV PRN (20:27)
[2021-06-26] MEDS ORDERED: ONDANSETRON 4 MG/2 ML VIAL IV PRN (20:27)
[2021-06-26] MEDS ORDERED: ACETAMINOPHEN 500 MG TAB PO PRN (20:27)
[2021-06-26 21:09] LABS: Creatine Phosphokinase 29 U/L (39-308)
[2021-06-26 21:24] LABS: CKMB Creatine Kinase MB < 1.0 ng/mL (1.0-3.6)
[2021-06-26] MEDS: FERROUS SULFATE 325 MG TAB PO SCH (22:34)
[2021-06-26] MEDS: APIXABAN 5 MG TABLET PO SCH (22:34)
[2021-06-26] MEDS: METOPROLOL TAR 50 MG TAB PO SCH (22:34)
[2021-06-26] MEDS: FUROSEMIDE 40 MG/4 ML VIAL IV SCH (22:34)
[2021-06-26 23:21] LABS: Troponin I < 0.02 ng/mL (0.0-0.045)
[2021-06-26] MEDS ORDERED: FUROSEMIDE 20 MG/ 2ML VIAL IV SCH (23:45)
[2021-06-26] MEDS ORDERED: NA CHLORIDE 0.9% 50 ML ONE (23:59)
[2021-06-27 05:12] LABS: Absolute Lymphocytes (CBC) 1.2 K/uL (0.7-4.9); Basophils % 0.7 % (0-1.3); Hematocrit 25.2 % (39.6-49.0); Lymphocytes % 17.1 % (15.3-44.8); MPV 7.6 fL (7.6-11.3); RBC Red Blood Cell Count 3.29 M/uL (4.33-5.43)
[2021-06-27 05:29] LABS: Albumin 2.9 g/dL (3.4-5.0); Bilirubin Total 0.5 mg/dL (0.2-1.0); Magnesium 2.7 mg/dL (1.8-2.4); Potassium 3.3 mmol/L (3.5-5.1); Protein, Total 6.1 g/dL (6.4-8.2)
--- NOTE | 2021-06-27 06:05 | P.PN ---
Subjective Date of Service: 06/27/21 Primary Care Provider: Dr. Deshpande Chief Complaint: Shortness of breath Subjective: Improving, Doing well Physical Examination - Vital Signs Temperature: 97.9 F Blood Pressure: 110/63 Pulse: 84 Respirations: 18 - Studies Laboratory Data (last 24 hrs) 06/26/21 13:40: PT 17.5 H, INR 1.52 06/26/21 13:40: WBC 6.00, Hgb 7.3 L, Hct 24.3 L, Plt Count 271 06/26/21 13:40: Sodium 141, Potassium 3.6, BUN 10, Creatinine 0.97, Glucose 118 H, Magnesium 2.7 H, Total Bilirubin 0.4, AST 11 L, ALT 33, Alkaline Phosphatase 74 Assessment & Plan Discharge Plan: Home Plan to discharge in: 24 Hours Physician Review Additional Text: COVID: negative Chest x-ray: COMPARISON: Chest Single View dated 06/04/2021; Chest Single View dated 06/03/2021; Chest Single View dated 04/28/2021; Chest Single View dated 03/06/2021 FINDINGS: Portable technique limits examination quality. Mild pulmonary edema is present. Heart moderately enlarged in size. No displaced fractures. IMPRESSION: Mild CHF. Physical Exam: GENERAL: The patient is a well-developed, well-nourished, in no apparent distress. Alert and oriented x3. VITAL SIGNS: Reviewed HEENT: Head is normocephalic and atraumatic. Extraocular muscles are intact. Pupils are equal, round, and reactive to light and accommodation. Nares appeared normal. Mouth is well hydrated and without lesions. Mucous membranes are moist. NECK: Supple. No carotid bruits. No lymphadenopathy or thyromegaly. LUNGS: Some crackles to the bases.. HEART: A. fib rate better controlled between 90 and 100 ABDOMEN: Soft, nontender, and nondistended. Positive bowel sounds. No hepatosplenomegaly was noted. EXTREMITIES: Minimal pitting edema to the lower extremity NEUROLOGIC: The patient is oriented to person, place and time. Strength and sensation are grossly intact. Face is symmetric. SKIN: Normal color, turgor and temperature. No ulcerations or rashes noted. Impression: Atrial fibrillation with RVR on anticoagulation therapy Acute on chronic diastolic CHF Hypertension Acute anemia with iron deficiency anemia History of hemorrhoids GERD Hyperlipidemia Plan: Atrial fibrillation with RVR on chronic anticoagulation therapy: Heart rate imp roved. Patient remains in A. fib. Case discussed in detail with cardiology. No intervention required. Medications have been adjusted. Will increase metoprolol to 75 mg 1 pill twice daily. Continue Eliquis 5 mg 1 pill twice daily. Patient to get 1 more unit of blood. After transfusion patient can be discharged home. Acute on chronic diastolic CHF: Patient doing well. Continue Lasix 40 mg 1 pill twice daily at discharge. Continue 1500 cc/day fluid restriction and low-salt diet. Recommend to monitor weight daily. If his weight increases by more than 5 pounds he is to contact his PCP or cardiology for further recommendation. Hypertension: Metoprolol has been increased to 75 mg 1 pill twice daily. This will be continued at discharge. Recommend to maintain blood pressure less than 130/80. Further adjustment can be done by his PCP or cardiology. Acute anemia with iron deficiency anemia: Patient to get his second unit of blood. Patient will need iron supplementation at discharge. History of hemorrhoids: Patient to see GI in the future to address his hemorrhoids. GERD: Continue with PPI at discharge. Hyperlipidemia: Continue with home medication Code Status: Full Code DVT prophylaxis: [facility] Advanced Care Planning-30 minutes: Home at discharge Time Spent Managing Pts Care (In Minutes): 55
[2021-06-27] MEDS: KCL 20 MEQ/100 mL IVPB 20 MEQ/100 ML BAG IV SCH ×2 (06:07→07:39)
[2021-06-27] MEDS ORDERED: NA CHLORIDE 0.9% 100 ML ONE (06:08)
[2021-06-27] MEDS ORDERED: PANTOPRAZOLE 40MG TABLET PO SCH (06:30)
[2021-06-27] MEDS ORDERED: FUROSEMIDE 20 MG/ 2ML VIAL IV SCH (07:00)
[2021-06-27] MEDS ORDERED: POTASSIUM CL SA 10 MEQ TAB PO ONE (07:33)
[2021-06-27] MEDS ORDERED: PNEUMOCOCCAL VACCINE 0.5 ML IMVAC ONE (08:00)
[2021-06-27] MEDS ORDERED: INFLUENZA VACCINE (for 6+ mo) 0.5 ML DOSE IMVAC ONE (08:00)
[2021-06-27] MEDS ORDERED: DOCUSATE NA 100 MG CAP PO SCH (09:00)
[2021-06-27] MEDS ORDERED: NA CHLORIDE 0.9% 250 ML ONE ×2 (09:10)
[2021-06-27] MEDS: FERROUS SULFATE 325 MG TAB PO SCH (09:30)
[2021-06-27] MEDS: FUROSEMIDE 40 MG/4 ML VIAL IV SCH (09:30)
[2021-06-27] MEDS: APIXABAN 5 MG TABLET PO SCH (09:31)
[2021-06-27] MEDS: METOPROLOL TAR 50 MG TAB PO SCH (09:32)
[2021-06-27 09:43] VITALS: O2SAT 95
[2021-06-27] MEDS ORDERED: METOPROLOL TAR 25 MG TAB PO ONE (11:51)
--- NOTE | 2021-06-27 12:00 | P.DS ---
Admission Date: 06/26/21 Discharge Date: 06/27/21 Primary Care Provider: Dr. Deshpande Disposition: ROUTINE DISCHARGE Discharge Condition: GOOD Reason for Admission: Shortness of breath Consultations: Cardiology-Dr. Westbrook Procedures: COVID: negative Chest x-ray: COMPARISON: Chest Single View dated 06/04/2021; Chest Single View dated 06/03/2021; Chest Single View dated 04/28/2021; Chest Single View dated 03/06/2021 FINDINGS: Portable technique limits examination quality. Mild pulmonary edema is present. Heart moderately enlarged in size. No displaced fractures. IMPRESSION: Mild CHF. Medical Problem List: Atrial fibrillation with RVR on anticoagulation therapy Acute on chronic diastolic CHF Hypertension Acute anemia with iron deficiency anemia History of hemorrhoids GERD Hyperlipidemia Brief History of Present Illness: 75-year-old male with history of atrial fibrillation on chronic anticoagulation therapy, diastolic CHF, iron deficiency anemia, hypertension, hyperlipidemia and GERD. Patient reports increasing shortness of breath over the past several days. Some edema to the lower extremity noted. Patient also reports some chest pain and difficulty sleeping at night. He came to the ER for further evaluation. He denied any nausea, vomiting. Patient reports that he is to see GI in the near future for hemorrhoid treatment. In the ER patient was evaluated. Heart rate was in the 130s. Patient given IV Lopressor in the ER with improvement. Chest x-ray showed pulmonary edema. Patient given IV Lasix. Hemoglobin 7.3. BMP reviewed. BNP 1936. Troponin negative. Patient was admitted for treatment. Hospital Course: Patient presented with atrial fibrillation with RVR. Patient with history of atrial fibrillation on chronic anticoagulation therapyEliquis. Patient previously on amiodarone. This was discontinued on the last hospitalization. His metoprolol had been decreased. During the course of this hospitalization his metoprolol was increased to 75 mg 1 pill twice daily for better rate control. Blood pressure improved with rate control. Case discussed in detail with cardiology who agreed with plan of care. At discharge the patient will continue with metoprolol 75 mg 1 pill twice daily. Patient will also continue with Eliquis 5 mg 1 pill twice daily. Recommend to follow-up with cardiology in 1 to 2 weeks to follow-up his hospitalization. Education on atrial fibrillation provided. Patient also had mild acute on chronic diastolic CHF. Patient was given IV diuretic therapy with improvement. At discharge patient doing well without significant shortness of breath. At discharge patient will continue with the 1500/day fluid restriction and low-salt diet. Recommend to monitor his weight daily. If his weight increases by more than 5 pounds he is to contact his PCP or cardiology for further recommendation. At discharge Lasix will be increased to 40 mg 1 pill twice daily. Further adjustment in medication may be required. This can be done with the help of his PCP or cardiology in the next 1 to 2 weeks. Patient with history of iron deficiency anemia. Acute anemia was noted. Patient with history of hemorrhoids. He is to see GI soon to address his h emorrhoids and get treated for this. His hemoglobin was below 7.5. Due to his multiple risk factors blood was transfused. Patient given 2 units of blood. Hemoglobin improved. At discharge patient will continue with iron supplementation 325 mg 1 pill twice daily along with stool softener daily. Recommend to recheck labCBC in 1 to 2 weeks to monitor his progress. Patient to follow-up with GI as directed to address his hemorrhoids. Patient with underlying GERD. At discharge patient will continue with Prilosec 40 mg daily. Patient with hyperlipidemia. At discharge patient will continue with Lipitor 20 mg daily. Vital Signs/Physical Exam: Temp Pulse Resp BP Pulse Ox 97.9 F 84 18 110/63 98 06/27/21 11:53 06/27/21 11:53 06/27/21 11:53 06/27/21 11:53 06/27/21 08:00 General: Alert, In no apparent distress, Oriented x3, Cooperative HEENT: Atraumatic Neck: Supple Respiratory: Clear to auscultation bilaterally Cardiovascular: Other (A. fib rate controlled) Gastrointestinal: Normal bowel sounds, No ascites, No tenderness, No masses, No rebound, No guarding Integumentary: No tenderness/swelling, No erythema, No warmth, No cyanosis Neurological: Normal speech, Normal strength at 5/5 x4 extr, Normal tone Laboratory Data at Discharge: WBC 6.80 K/uL (4.3-10.9) 06/27/21 05:00 Hgb 7.8 g/dL (13.6-17.9) L 06/27/21 05:00 Hct 25.2 % (39.6-49.0) L 06/27/21 05:00 Plt Count 238 K/uL (152-406) 06/27/21 05:00 PT 17.5 SECONDS (9.5-12.5) H 06/26/21 13:40 INR 1.52 06/26/21 13:40 Sodium 142 mmol/L (136-145) 06/27/21 05:00 Potassium 3.3 mmol/L (3.5-5.1) L 06/27/21 05:00 BUN 12 mg/dL (7-18) 06/27/21 05:00 Creatinine 0.89 mg/dL (0.55-1.3) 06/27/21 05:00 Glucose 84 mg/dL (74-106) 06/27/21 05:00 Magnesium 2.7 mg/dL (1.8-2.4) H 06/27/21 05:00 Total Bilirubin 0.5 mg/dL (0.2-1.0) 06/27/21 05:00 AST 8 U/L (15-37) L 06/27/21 05:00 ALT 27 U/L (12-78) 06/27/21 05:00 Alkaline Phosphatase 70 U/L (45-117) 06/27/21 05:00 Troponin I < 0.02 ng/mL (0.0-0.045) 06/27/21 05:00 Home Medications: Apixaban [Eliquis] 5 mg PO BID 06/26/21 Atorvastatin Calcium 20 mg PO DAILY 06/26/21 Ondansetron [Zofran (Odt)*] 4 mg PO Q12HR PRN 06/26/21 Docusate [Colace Cap*] 100 mg PO DAILY #30 cap 06/27/21 Ferrous Sulfate 325 mg PO BID #60 06/27/21 Furosemide 40 mg PO BID #60 06/27/21 Metoprolol Tartrate [Lopressor*] 75 mg PO BID #90 tab 06/27/21 Omeprazole [Prilosec] 40 mg PO DAILY #30 capsule. 06/27/21 New Medications: Docusate [Colace Cap*] 100 mg PO DAILY #30 cap Ferrous Sulfate 325 mg PO BID #60 Furosemide 40 mg PO BID #60 Metoprolol Tartrate [Lopressor*] 75 mg PO BID #90 tab Omeprazole [Prilosec] 40 mg PO DAILY #30 capsule. Physician Discharge Instructions: Patient presented with atrial fibrillation with RVR. Patient with history of atrial fibrillation on chronic anticoagulation therapyEliquis. Patient previously on amiodarone. This was discontinued on the last hospitalization. His metoprolol had been decreased. During the course of this hospitalization his metoprolol was increased to 75 mg 1 pill twice daily for better rate control. Blood pressure improved with rate control. Case discussed in detail with cardiology who agreed with plan of care. At discharge the patient will continue with metoprolol 75 mg 1 pill twice daily. Patient will also continue with Eliquis 5 mg 1 pill twice daily. Recommend to follow-up with cardiology in 1 to 2 weeks to follow-up his hospitalization. Education on atrial fibrillation provided. Patient also had mild acute on chronic diastolic CHF. Patient was given IV diuretic therapy with improvement. At discharge patient doing well without significant shortness of breath. At discharge patient will continue with the 1500/day fluid restriction and low-salt diet. Recommend to monitor his weight daily. If his weight increases by more than 5 pounds he is to contact his PCP or cardiology for further recommendation. At discharge Lasix will be increased to 40 mg 1 pill twice daily. Further adjustment in medication may be required. This can be done with the help of his PCP or cardiology in the next 1 to 2 weeks. Patient with history of iron deficiency anemia. Acute anemia was noted. Patient with history of hemorrhoids. He is to see GI soon to address his hemorrhoids and get treated for this. His hemoglobin was below 7.5. Due to his multiple risk factors blood was transfused. Patient given 2 units of blood. Hemoglobin improved. At discharge patient will continue with iron supplementat ion 325 mg 1 pill twice daily along with stool softener daily. Recommend to recheck labCBC in 1 to 2 weeks to monitor his progress. Patient to follow-up with GI as directed to address his hemorrhoids. Patient with underlying GERD. At discharge patient will continue with Prilosec 40 mg daily. Patient with hyperlipidemia. At discharge patient will continue with Lipitor 20 mg daily. Diet: AHA Activity: Ad zheng Followup: Willy Deshpande MD [Primary Care Provider] - Time spent managing pt's care (in minutes): 55
[2021-06-27 15:32] LABS: Hematocrit 31.7 % (39.6-49.0)
[2021-06-27 17:58] VITALS: BP 116/73; TEMP 97.4
[2021-06-27] MEDS ORDERED: METOPROLOL TAR 50 MG TAB PO SCH (21:00)
--- NOTE | 2021-06-28 11:27 | EKG ---
Test Date: 2021-06-26 Test Time: 13:04:58 Heel Builder: [place] MEASUREMENT RESULTS: Intervals: Rate: 106 [place]: QRSD: 140 QT: 342 QTc: 454 [place]: P: [place]: QRS: 44 T: 69 INTERPRETIVE STATEMENTS: Atrial fibrillation with rapid ventricular response Nonspecific intraventricular block T wave abnormality, consider lateral ischemia or digitalis effect Abnormal ECG Compared to ECG 06/03/2021 07:24:36 T-wave abnormality now present Possible ischemia now present Left bundle-branch block no longer present Electronically Signed On 06-28-21 11:21:02 DEPUTY COMMISSIONER by Jimmy Westbrook
--- OUTSIDE RECORDS SUMMARY | 2021-07-01 16:26 | XMS REPORT | Continuity of Care Document ---
:[address] [facility] t Address [address] [place] [address] Care Team Providers Name Role Phone Melida SHEFFIELD, Kai Primary Care Physician [phone] ELLA Attending Clinician Unavailable DANIEL Attending Clinician Unavailable RUSS QUINTANILLA Attending Clinician Unavailable VERONICA CODY Attending Clinician Unavailable SONIA GINGER Attending Clinician Unavailable Herb Nath MD Attending Clinician Rocio ELLIS Attending Clinician Doctor Unassigned, Name Attending Clinician Unavailable ELLA Admitting Clinician Unavailable RUSS QUINTANILLA Admitting Clinician Unavailable PARIS Admitting Clinician Unavailable SARBJIT Admitting Clinician Unavailable Herb Nath MD Admitting Clinician Payers Payer Name Policy Type Policy Number Effective Date Expiration Date S ource TOTALCARE SNP [id number] 2020 MEDICARE HMO-CIGNA 00:00:00 [place] [id number] 2020 HMO 00:00:00 Problems Condition Condition Condition Status Onset Resolution Last Treating Co mments Source Name Details Category Date Date Treatment Clinician Date No known No known Disease Unive rs active active ity of problems problems [facility] Allergies, Adverse Reactions, Alerts Allergy Allergy Status Severity Reaction(s) Onset Inactive Treating Comm ents Source Name Type Date Date Clinician Aspirin Propensi Active 2020-08 [facility] ty to 08-22 Gustine adverse 00:00: of reaction 00 Medicin s to e drug APIXABAN Allergy Active 2020-[address] [facility] ASPIRIN [facility]ergy [facility] NO KNOWN Allergy Active [facility] Social History Social Habit Start Date Stop Date Quantity Comments Source Tobacco use and 2021-06-22 2021-06-22 Never used [facility] llege of exposure 00:00:00 00:00:00 Medicine Sex [birth year] [facility] llege of 00:00:00 00:00:00 Medicine Smoking Status Start Date Stop Date Source Never smoker [facility] o f Medicine Former smoker 2019-04-22 00:00:00 2019-04-22 00:00:00 [facility] Medications Ordered Filled Start Stop Current Ordering Indication Dosage Frequency Signature Comments Components Source Medication Medication Date Date Medication? Clinician (SIG) Name Name atorbradford 2020-08 Yes 20mg Take 20 mg Giovanny n (LIPITOR) 1-04 by mouth. Col lege 20 MG 08:27: of tablet 20 Medicin e omeprazole 2020-08 Yes 40mg Take 1 [facility] (PRILOSEC) 1-04 capsule by Col lege 40 MG 00:00: mouth two of capsule 00 times Medicin daily. e benzonatate 2020-08 Yes Giovanny (TESSALON) 0-25 College 100 mg 00:00: of capsule 00 Medicin e docusate 2020-08 Yes [facility] sodium 0-17 College (COLACE) 00:00: of 100 MG 00 Medicin capsule e metoprolol 2020-08 Yes [facility] (LOPRESSOR) 0-17 College 25 MG 00:00: of tablet 00 Medicin e promethazin 2020-08 Yes [facility] e 0-11 College (PHENERGAN) 00:00: of 12.5 MG 00 Medicin tablet e Apixaban 5 2020-08- Yes 5mg Take 5 mg B aylor MG TABS 08-18 by mouth. Colleg e 00:00: 05:59 of 00 :00 Medicin e furosemide 2020- Yes 40mg Take 40 mg Giovanny (LASIX) 40 05-11 by mouth. Col lege MG tablet 00:00: 05:59 of 00 :00 Medicin e Aspirin 81 0 2020- Yes 81mg Take 81 mg Giovanny MG tablet 05-11 by mouth. [facility] e[facility] 00:00: 05:59 of 00 :00 Medicin e atorvastati Yes 20mg Take 20 mg Univers n 20 mg 9-04 by mouth ity of tablet 14:02: at [place] 00 bedtime. Medical Branch clopidogrel Yes 75mg Take 75 mg Univers 75 mg 9-04 by mouth ity of tablet 14:02: daily. Medical Branch valsartan Yes 320mg Take 320 Uni vers 320 mg 9-04 mg by ity of tablet 14:02: mouth [place] 00 daily. Medical Branch atorvastati Yes 20mg Take 20 mg Univers n 20 mg 9-04 by mouth ity of tablet 14:02: at [place] 00 bedtime. Medical Branch clopidogrel Yes 75mg Take 75 mg Univers 75 mg 9-04 by mouth ity of tablet 14:02: daily. Medical Branch valsartan Yes 320mg Take 320 Uni vers 320 mg 9-04 mg by ity of tablet 14:02: mouth [place] 00 daily. Medical Branch atorvastati Yes 20mg Take 20 mg Univers n 20 mg 9-04 by mouth ity of tablet 14:02: at [place] 00 bedtime. Medical Branch clopidogrel Yes 75mg Take 75 mg Univers 75 mg 9-04 by mouth ity of tablet 14:02: daily. Medical Branch valsartan Yes 320mg Take 320 Uni vers 320 mg 9-04 mg by ity of tablet 14:02: mouth [place] 00 daily. Medical Branch ondansetron Yes 4mg 4 mg, Slow Univers (ZOFRAN 04-22 IV Push, ity of (PF)) 13:19: PRN, 1 [place] injection 4 48 dose, Medical mg Starting Branch 04/22/19 at 0819, Until Discontinu ed, Routine, Nausea and Vomiting (N/V), PACU FENTanyl PF 2018- Yes 25ug 25 mcg, Uni vers (SUBLIMAZE 04 Slow IV ity of (PF)) 13:19: Push, [place] injection 47 Q5MIN PRN, Medi allison 25 mcg 4 doses, Branch Starting Sat04/22/19 at 0819, Until Discontinu ed, Routine, Pain (scale 7-10), PACU FENTanyl PF 2019-0 Yes 25ug 25 mcg, Uni vers (SUBLIMAZE 04-22 Slow IV ity of (PF)) 13:19: Push, [place] injection 47 Q5MIN PRN, Medi allison 25 mcg 4 doses, Branch Starting Sat04/22/19 at 0819, Until Discontinu ed, Routine, Pain (scale 4-6), PACU water for 2018-0 Yes PRN, Univers irrigation 04-22 Starting ity o f irrigation 13:02: Sat04/22/19 [place] solution 00 at 0802, Medical Until [place] Discontinu ed, Routine, Intra-op simethicone 2018- Yes PRN, Univer s (GAS 04-22 Starting ity of RELIEF) 40 13:01: Sat04/22/19 [place] mg/0.6 mL 00 at 0801, Medica l drops Until [place] Discontinu ed, Routine, Intra-op propofol 2019- No ONCE INTRA Un amrit injection 04-22 PROCEDURE, ity of 13:00: 13:14 Starting [place] 00 :47 Sat04/22/19 Medical at 0800, Branch Until Sat04/22/19 at 0814, Routine, Intra-op lidocaine 2019- No ONCE INTRA U nivers 1% 04-22 PROCEDURE, ity of (XYLOCAINE) 12:59: 13:14 Starting [place] 100 mg/10 00 :54 Sat04/22/19 Medi allison mL (1 %) at 0759, Branch injection Until Sat04/22/19 at 0814, Routine, Intra-op lactated 2019- No CONTINUOUS Un amrit ringers IV 04-22 PRN, ity of infusion 11:42: 13:14 [place] 00 :10 Sat04/22/19 Medical at 0642, Branch Until Sat04/22/19 at 0814, Routine, Intra-op lactated 2019- No 1000mL at 20 Unive rs ringers IV 04-22 mL/hr, ity of infusion 11:30: 11:42 1,000 mL, [place] as 1,000 mL 00 :00 IV Medical Infusion, Branch ONCE, 1 dose, 04/22/19 at 0630, Routine, DSU Pre-op Vital Signs Vital Name Observation Time Observation Value Comments Source WEIGHT 2021-05-06 08:52:00 88.2 kg WEIGHT 2021-05-03 09:54:00 92.08 kg HEIGHT 2021-04-28 15:00:00 165.1 cm Systolic blood 2021-06-22 13:19:00 140 mm[Hg] [facility] pressure Medicine Diastolic blood 2021-06-22 13:19:00 82 mm[Hg] [facility] Medicine Heart rate 2021-06-22 13:19:00 86 /min [facility] Body temperature 2021-06-22 13:19:00 36.83 Lalita [facility] Body height 2021-06-22 13:19:00 167.6 cm [facility] Body weight 2021-06-22 13:19:00 84.732 kg [facility] BMI 2021-06-22 13:19:00 30.15 kg/m2 [facility] WEIGHT 2021-05-23 22:20:00 83.643 kg HEIGHT 2021-05-23 15:04:00 167.6 cm WEIGHT 2021-05-23 15:04:00 92.08 kg WEIGHT 2021-05-23 22:20:00 83.643 kg HEIGHT 2021-05-23 15:04:00 167.6 cm WEIGHT 2021-05-23 15:04:00 92.08 kg HEIGHT 2021-05-20 02:03:00 167.6 cm WEIGHT 2021-05-20 02:03:00 92.08 kg HEIGHT 2021-05-20 02:03:00 167.6 cm WEIGHT 2021-05-20 02:03:00 92.08 kg HEIGHT 2021-05-16 21:01:00 167.6 cm WEIGHT 2021-05-16 21:01:00 92.08 kg HEIGHT 2021-05-15 12:07:00 167.6 cm WEIGHT 2021-05-15 12:07:00 92.08 kg HEIGHT 2021-05-16 21:01:00 167.6 cm WEIGHT 2021-05-16 21:01:00 92.08 kg HEIGHT 2021-05-15 12:07:00 167.6 cm WEIGHT 2021-05-15 12:07:00 92.08 kg WEIGHT 2021-05-06 08:52:00 88.2 kg WEIGHT 2021-05-03 09:54:00 92.08 kg HEIGHT 2021-04-28 15:00:00 165.1 cm Systolic blood 2019-04-22 13:42:00 140 mm[Hg] Univer sity of pressure [place] [facility] Diastolic blood 2019-04-22 13:42:00 73 mm[Hg] Unive rsity of pressure [place] [facility] Heart rate 2019-04-22 13:42:00 56 /min [facility] [place] [facility] Respiratory rate 2019-04-22 13:42:00 16 /min Univ ersity [facility] [place] [facility] Oxygen saturation in 2019-04-22 13:42:00 99 /min University of Arterial blood by [facility] allison Pulse oximetry Branch Body temperature 2019-04-22 13:27:00 36.33 Lalita Univ ers[facility] [place] [facility] Body height 2019-04-17 16:00:00 162.6 cm [facility] [place] [facility] Body weight 2019-04-17 16:00:00 91.173 kg [facility] [place] [facility] BMI 2019-04-17 16:00:00 34.50 kg/m2 [facility] [place] [facility] Systolic blood 2019-04-22 13:42:00 140 mm[Hg] Univer sity of pressure [place] [facility] Diastolic blood 2019-04-22 13:42:00 73 mm[Hg] Unive rsity of pressure [place] [facility] Heart rate 2019-04-22 13:42:00 56 /min [facility] [place] [facility] Respiratory rate 2019-04-22 13:42:00 16 /min Univ ers[facility] [place] [facility] Oxygen saturation in 2019-04-22 13:42:00 99 /min University of Arterial blood by [facility] allison Pulse oximetry Branch Body temperature 2019-04-22 13:27:00 36.33 Lalita [facility] [place] [facility] Body height 2019-04-17 16:00:00 162.6 cm [facility] [place] [facility] Body weight 2019-04-17 16:00:00 91.173 kg [facility] BMI 2019-04-17 16:00:00 34.50 kg/m2 [facility] Procedures Procedure Date / Time Performed Performing Clinician Luz GARZAD (ENDO) 2019-04-22 12:55:59 [facility] 2019-04-22 05:01:00 Doctor Unassigned, No Univ [facility] Plan of Care Planned Activity Planned Date Details Comments Source Future Scheduled 2021-06-22 CBC W/AUTO DIFF Ordered: [facility] [employer] ol[facility] Test 09:11:41 WITH PLATELETS 06/22/2021 of Medicine [code = 65452-0] Future Scheduled 2021-06-22 FERRITIN [code = Ordered: [facility] Test 09:11:41 41542-5] 06/22/2021 of Medicine Future Scheduled 2021-06-22 IRON+TIBC+%SAT Ordered: [facility] [employer] llege Test 09:11:41 [code = NOCPT] 06/22/2021 of Medicine Future Scheduled 2021-06-22 TETANUS SHOT [facility] Test 08:19:01 (ADULT) [code = of Medicine TETANUS SHOT (ADULT)] Future Scheduled 2021-06-22 Hepatitis C [facility] Test 08:19:01 screening of Medicine (procedure) [code = 822341706] Future Scheduled 2021-06-22 ZOSTER VACCINE (1 [facility] [employer] Test 08:19:01 of 2) [code = of Medicine ZOSTER VACCINE (1 of 2)] Future Scheduled 2021-06-22 FALL SCREEN [code [facility] [employer] Test 08:19:01 = FALL SCREEN] of Medicine Future Scheduled 2021-06-22 PNEUMOVAX >=65 [facility] Test 08:19:01 (PPSV23) [code = of Medicine PNEUMOVAX >=65 (PPSV23)] Future Scheduled 2021-06-22 MEDICARE IPPE [facility] Test 08:19:01 (WELCOME TO of Medicine MEDICARE) [code = MEDICARE IPPE (WELCOME TO MEDICARE)] Future Scheduled 2021-06-22 FLU VACCINE > 6 [facility] C ollege Test 08:19:01 MONTHS [code = FLU of Medici ne VACCINE > 6 MONTHS] Encounters Start End Encounter Admission Attending Care Care Encounter Source Date/Time Date/Time Type Type Clinicians Facility Department ID 2021-05-28 Inpatient ER FRACISCO JARAMILLO Gastro [id number] [facility] 12:00:47 RYLAN 2021-06-22 2021-06-22 Office DANIEL GREG [id number] [facility] 08:13:37 11:39:39 Visit RICK AMBULATOR [id number] College Y 0.2.7.2.686 of [id number] Medi eddie 325 e 2021-05-23 2021-05-[address] [facility] Emergency [id number] [facility] 15:12:00 15:03:00 MALKA 2021-05-23 2021-05-23 Outpatient [facility] [id number] [facility] 00:00:00 23:59:00 Colleg e of Medicin e 2021-05-20 2021-05-[address] [facility] Emergency [id number] [facility] 01:57:00 01:57:00 2021-05-15 2021-05-15 Outpatient [facility] [id number] [facility] 00:00:00 23:59:00 Colleg e of Medicin e 2021-05-15 2021-05-[address] [facility] Emergency [id number] [facility] 12:00:00 12:00:00 2021-04-29 2021-04-29 Outpatient [facility] [id number] [facility] 00:00:00 23:59:00 Colleg e of Medicin e 2021-04-28 2021-04-28 Outpatient [facility] [id number] [facility] 12:32:00 23:59:00 Colleg e of Medicin e 2019-04-22 2019-04-22 [facility] [id number] [facility] [place] [facility] 06:15:00 08:56:00 Encounter e, Katy Loyola 350.1.13.10 [place] [id number] [place] [id number] Branch 2019-04-22 2019-04-22 [facility] [id number] 06:15:00 08:56:00 Encounter Katy mena 350.1.13.10 [place] 4.2.7.2.686 Surgical [id number] [place] 071 2019-04-22 2019-04-22 Anesthesia [facility] [id number] [facility] [place] [facility] 07:54:00 08:13:00 Jaden Loyola 350.1.13.10 i ty of [place] 4[place].2.[place] [id number] [facility] 020 Branch 2019-04-22 2019-04-22 Anesthesia [facility] [id number] 07:54:00 08:13:00 Jaden Loyola 350.1.13.10 [place] 4.2.7.2.686 Surgical [id number] [place] 020 2019-04-22 2019-04-22 Orders Doctor MURILLO [id number] Univers 00:00:00 00:00:00 Only Unassigned, ANA MARIA 350.1.13.10 ity of [place] [facility] 4.2.7.2.686 [place] as [id number] [facility] 009 Branch 2019-04-22 2019-04-22 Orders Doctor LIDIA [id number] 00:00:00 00:00:00 Only Unassigned, ANA MARIA 350.1.13.10 [facility] 4.2.7.2.686 [id number] Results Test Description Test Time Test Comments Results Result Comments Source HEMOGLOBIN AND HEMATOCRIT 2021-05-26 05:07:16 Test Item Value Reference Range Interpretation Comme nts HEMOGLOBIN (BEAKER) (test code = 410) 7.9 GM/DL 13.7-17.5 L HEMATOCRIT (BEAKER) (test code = 411) 26.4 % 40.1-51.0 L Lapper ID - [id number] AND [id number] 18:44:57 Test Item Value Reference Range Interpretation Comments HEMOGLOBIN (BEAKER) (test code = 8.7 GM/DL 13.7-17.5 L 410) HEMATOCRIT (BEAKER) (test code = 29.7 % 40.1-51.0 L 411) Lapper ID - [id number] AND [id number] 11:29:37 Test Item Value Reference Range Interpretation Comments HEMOGLOBIN (BEAKER) (test code = 8.3 GM/DL 13.7-17.5 L 410) HEMATOCRIT (BEAKER) (test code = 28.5 % 40.1-51.0 L 411) Lapper ID - [id number] AND [id number] 04:51:37 Test Item Value Reference Range Interpretation Comments HEMOGLOBIN (BEAKER) (test code = 7.9 GM/DL 13.7-17.5 L 410) HEMATOCRIT (BEAKER) (test code = 26.9 % 40.1-51.0 L 411) Lapper ID - [id number] AND [id number] 16:42:26 Test Item Value Reference Range Interpretation Comments HEMOGLOBIN (BEAKER) (test code = 8.6 GM/DL 13.7-17.5 L 410) HEMATOCRIT (BEAKER) (test code = 29.4 % 40.1-51.0 L 411) Lapper ID - [id number] METABOLIC [id number] 09:04:40 Test Item Value Reference Range Interpretation Comments SODIUM (BEAKER) 138 meq/L 136-145 (test code = 381) POTASSIUM (BEAKER) 3.5 meq/L 3.5-5.1 (test code = 379) CHLORIDE (BEAKER) 105 meq/L 98-107 (test code = 382) CO2 (BEAKER) (test 26 meq/L 22-29 code = 355) BLOOD UREA NITROGEN 14 mg/dL 7-21 (BEAKER) (test code = 354) CREATININE (BEAKER) 0.95 mg/dL 0.57-1.25 (test code = 358) GLUCOSE RANDOM 95 mg/dL 70-105 (BEAKER) (test code = 652) CALCIUM (BEAKER) 8.1 mg/dL 8.4-10.2 L (test code = 697) EGFR (BEAKER) (test 77 mL/min/1.73 ESTIMA [place] GFR IS code = 1092) sq m NOT ACCURATE CREATININE CLEARANCE IN PREDICTING GLOMERULAR FILTRATION RATE . ESTIMATED GFR I S NOT APPLICABLE FOR DIALYSIS PATIEN TS. Lapper ID - [id number] AND [id number] 08:41:52 Test Item Value Reference Range Interpretation Comments HEMOGLOBIN (BEINESSA) (test code = 7.6 GM/DL 13.7-17.5 L 410) HEMATOCRIT (BEAKER) (test code = 26.5 % 40.1-51.0 L 411) Lapper ID - [id number] ([facility])2021-05-23 19:59:55 Test Item Value Reference Range Interpretation Comments SARS-COV2/RT-PCR Negative Negative The SARS-Co V-2 target (test code = nucleic acids a re not [id number]) detected in thi s specimen. Negative result s do not preclude SARS-C oV-2 infection and s hould not be used as the yolanda e basis for patient managem ent decisions. Nega tive results must be combine d with clinical observ ations, patient history , and epidemiological information. A false negativ e result may occur if a spec imen is improperly addison ected, transported or handled. This SARS CoV-2 test is a rapid, real-oskar e RT-PCR test intended for th e qualitative detection of nu cleic acid from SARS-CoV-2 in a nasopharyngeal swab specimen collected from individuals suspected of CO VID-19 by their healthcar e provider. This test has been authorized by FDA under an EUA for use by authorized laboratories. This test is only authorized for the duration of the declaration that circumstances exist justifying the authorization of emergency use of in vitro diagnostic tests for detection and/or diagnosis of COVID-19 under Section 564(b)(1) of the Federal Food, Drug and Cosmetic Act, 21 U.S.C. 360bbb- 3(b)(1), unless the authorization is terminated or revoked sooner. Fact Sheet for Healthcare Providers: https://www.iBuildApp/Documents/Xpert%20Xpress%20SARS%20CoV-2/Fact%20Sheets/623-1164%20SARS-COV -2%20HEALTHCARE%20PROVIDERS%20FACT%20SHEET.pdf Fact Sheet for Healthcare Patients: https://www.ChemiSense/Documents/Xpert %20Xpress%20SARS%20CoV-2/Fact%20Sheets/693-2491%23LQSR-DUN-5%20PATIENT%20FACT%20 SHEET.pdfCOMPREHENSIVE METABOLIC [id number] 17:17:21 Test Item Value Reference Range Interpretation Comments TOTAL PROTEIN 5.8 gm/dL 6.0-8.3 L (BEAKER) (test code = 770) ALBUMIN (BEAKER) 3.3 g/dL 3.5-5.0 L (test code = 1145) ALKALINE PHOSPHATASE 77 U/L 40-150 (BEAKER) (test code = 346) BILIRUBIN TOTAL 0.4 mg/dL 0.2-1.2 (BEAKER) (test code = 377) SODIUM (BEAKER) (test 139 meq/L 136-145 code = 381) POTASSIUM (BEAKER) 3.6 meq/L 3.5-5.1 (test code = 379) CHLORIDE (BEAKER) 104 meq/L 98-107 (test code = 382) CO2 (BEAKER) (test 27 meq/L 22-29 code = 355) BLOOD UREA NITROGEN 13 mg/dL 7-21 (BEAKER) (test code = 354) CREATININE (BEAKER) 1.06 mg/dL 0.57-1.25 (test code = 358) GLUCOSE RANDOM 117 mg/dL 70-105 H (BEAKER) (test code = 652) CALCIUM (BEAKER) 8.2 mg/dL 8.4-10.2 L (test code = 697) AST (SGOT) (BEAKER) 11 U/L 5-34 (test code = 353) ALT (SGPT) (BEAKER) 21 U/L 6-55 (test code = 347) EGFR (BEAKER) (test 68 mL/min/1.73 ESTIMA [place] GFR IS code = 1092) sq m NOT ACCURATE CREATININE CLEARANCE IN PREDICTING GLOMERULAR FILTRATION RATE . ESTIMATED GFR I S NOT APPLICABLE FOR DIALYSIS PATIEN TS. Lapper ID - LUDA [id number] 17:17:21 Test Item Value Reference Range Interpretation Comments LIPASE (BEAKER) (test code = 749) 31 U/L 8-78 Lapper ID - LUDA [id number] 16:55:15 Test Item Value Reference Range Interpretation Comments PROTIME (BEAKER) (test 17.2 seconds 11.9-14.2 H code = 759) INR (BEAKER) (test 1.43 See_Comment [Automat ed code = 370) message] The sy stem which generated this result transmitted reference range : <=5.90. The reference range was not used to interpret this result as normal/abnormal . PARTIAL THROMBOPLASTIN 38.2 seconds 22.5-36.0 H TIME (BEAKER) (test code = 760) RECOMMENDED COUMADIN/WARFARIN INR THERAPY RANGESSTANDARD DOSE: 2.0 - 3.0 Includes: PROPHYLAXIS forvenous thrombosis, systemic embolization; TREATMENT for venous thrombosis and/or pulmonary embolus.HIGH RISK: Target INR is 2.5-3.5 for patients with mechanical heart valves.CBC W/PLT COUNT & AUTO DIFFERENTIAL 2021-05-23 16:37:06 Test Item Value Reference Range Interpretation Comments WHITE BLOOD CELL COUNT (BEAKER) 5.3 K/ L 3.5-10.5 (test code = 775) RED BLOOD CELL COUNT (BEAKER) 3.00 M/ L 4.63-6.08 L (test code = 761) HEMOGLOBIN (BEAKER) (test code = 7.3 GM/DL 13.7-17.5 L 410) HEMATOCRIT (BEAKER) (test code = 25.6 % 40.1-51.0 L 411) MEAN CORPUSCULAR VOLUME (BEAKER) 85.3 fL 79.0-92.2 (test code = 753) MEAN CORPUSCULAR HEMOGLOBIN 24.3 pg 25.7-32.2 L (BEAKER) (test code = 751) MEAN CORPUSCULAR HEMOGLOBIN CONC 28.5 GM/DL 32.3-36.5 L (BEAKER) (test code = 752) RED CELL DISTRIBUTION WIDTH 27.9 % 11.6-14.4 H (BEAKER) (test code = 412) PLATELET COUNT (BEAKER) (test 393 K/CU MM 150-450 code = 756) MEAN PLATELET VOLUME (BEAKER) 9.1 fL 9.4-12.4 L (test code = 754) NUCLEATED RED BLOOD CELLS 0 /100 WBC 0-0 (BEAKER) (test code = 413) NEUTROPHILS RELATIVE PERCENT 67 % (BEAKER) (test code = 429) LYMPHOCYTES RELATIVE PERCENT 23 % (BEAKER) (test code = 430) MONOCYTES RELATIVE PERCENT 9 % (BEAKER) (test code = 431) EOSINOPHILS RELATIVE PERCENT 1 % (BEAKER) (test code = 432) BASOPHILS RELATIVE PERCENT 0 % (BEAKER) (test code = 437) NEUTROPHILS ABSOLUTE COUNT 3.51 K/ L 1.78-5.38 (BEAKER) (test code = 670) LYMPHOCYTES ABSOLUTE COUNT 1.18 K/ L 1.32-3.57 L (BEAKER) (test code = 414) MONOCYTES ABSOLUTE COUNT (BEAKER) 0.48 K/ L 0.30-0.82 (test code = 415) EOSINOPHILS ABSOLUTE COUNT 0.05 K/ L 0.04-0.54 (BEAKER) (test code = 416) BASOPHILS ABSOLUTE COUNT (BEAKER) 0.02 K/ L 0.01-0.08 (test code = 417) IMMATURE GRANULOCYTES-RELATIVE 0 % 0-1 PERCENT (BEAKER) (test code = 2801) BASIC METABOLIC [id number] 04:38:30 Test Item Value Reference Range Interpretation Comments SODIUM (BEAKER) 138 meq/L 136-145 (test code = 381) POTASSIUM (BEAKER) 3.6 meq/L 3.5-5.1 (test code = 379) CHLORIDE (BEAKER) 105 meq/L 98-107 (test code = 382) CO2 (BEAKER) (test 23 meq/L 22-29 code = 355) BLOOD UREA NITROGEN 10 mg/dL 7-21 (BEAKER) (test code = 354) CREATININE (BEAKER) 1.02 mg/dL 0.57-1.25 (test code = 358) GLUCOSE RANDOM 109 mg/dL 70-105 H (BEAKER) (test code = 652) CALCIUM (BEAKER) 8.9 mg/dL 8.4-10.2 (test code = 697) EGFR (BEAKER) (test 71 mL/min/1.73 ESTIMA LA GFR IS code = 1092) sq m NOT ACCURATE CREATININE CLEARANCE IN PREDICTING GLOMERULAR FILTRATION RATE . ESTIMATED GFR I S NOT APPLICABLE FOR DIALYSIS PATIEN TS. Lapper ID - DBCBC W/PLT COUNT & AUTO [id number] 04:21:40 Test Item Value Reference Range Interpretation Comments WHITE BLOOD CELL COUNT (BEAKER) 8.1 K/ L 3.5-10.5 (test code = 775) RED BLOOD CELL COUNT (BEAKER) 3.35 M/ L 4.63-6.08 L (test code = 761) HEMOGLOBIN (BEAKER) (test code = 8.0 GM/DL 13.7-17.5 L 410) HEMATOCRIT (BEAKER) (test code = 27.1 % 40.1-51.0 L 411) MEAN CORPUSCULAR VOLUME (BEAKER) 80.9 fL 79.0-92.2 (test code = 753) MEAN CORPUSCULAR HEMOGLOBIN 23.9 pg 25.7-32.2 L (BEAKER) (test code = 751) MEAN CORPUSCULAR HEMOGLOBIN CONC 29.5 GM/DL 32.3-36.5 L (BEAKER) (test code = 752) RED CELL DISTRIBUTION WIDTH 26.8 % 11.6-14.4 H (BEAKER) (test code = 412) PLATELET COUNT (BEAKER) (test 417 K/CU MM 150-450 code = 756) MEAN PLATELET VOLUME (BEAKER) 9.4 fL 9.4-12.4 (test code = 754) NUCLEATED RED BLOOD CELLS 0 /100 WBC 0-0 (BEAKER) (test code = 413) NEUTROPHILS RELATIVE PERCENT 66 % (BEAKER) (test code = 429) LYMPHOCYTES RELATIVE PERCENT 23 % (BEAKER) (test code = 430) MONOCYTES RELATIVE PERCENT 9 % (BEAKER) (test code = 431) EOSINOPHILS RELATIVE PERCENT 2 % (BEAKER) (test code = 432) BASOPHILS RELATIVE PERCENT 0 % (BEAKER) (test code = 437) NEUTROPHILS ABSOLUTE COUNT 5.37 K/ L 1.78-5.38 (BEAKER) (test code = 670) LYMPHOCYTES ABSOLUTE COUNT 1.86 K/ L 1.32-3.57 (BEAKER) (test code = 414) MONOCYTES ABSOLUTE COUNT (BEAKER) 0.69 K/ L 0.30-0.82 (test code = 415) EOSINOPHILS ABSOLUTE COUNT 0.16 K/ L 0.04-0.54 (BEAKER) (test code = 416) BASOPHILS ABSOLUTE COUNT (BEAKER) 0.03 K/ L 0.01-0.08 (test code = 417) IMMATURE GRANULOCYTES-RELATIVE 0 % 0-1 PERCENT (BEAKER) (test code = 2801) BASIC METABOLIC [id number] 07:03:04 Test Item Value Reference Range Interpretation Comments SODIUM (BEAKER) 137 meq/L 136-145 (test code = 381) POTASSIUM (BEAKER) 4.0 meq/L 3.5-5.1 (test code = 379) CHLORIDE (BEAKER) 107 meq/L 98-107 (test code = 382) CO2 (BEAKER) (test 23 meq/L 22-29 code = 355) BLOOD UREA NITROGEN 20 mg/dL 7-21 (BEAKER) (test code = 354) CREATININE (BEAKER) 0.95 mg/dL 0.57-1.25 (test code = 358) GLUCOSE RANDOM 96 mg/dL 70-105 (BEAKER) (test code = 652) CALCIUM (BEAKER) 8.2 mg/dL 8.4-10.2 L (test code = 697) EGFR (BEAKER) (test 77 mL/min/1.73 ESTIMA LA GFR IS code = 1092) sq m NOT ACCURATE CREATININE CLEARANCE IN PREDICTING GLOMERULAR FILTRATION RATE . ESTIMATED GFR I S NOT APPLICABLE FOR DIALYSIS PATIEN TS. Lapper ID - PIAYA LCBC (HEMOGRAM ONLY)2021-05-17 04:38:47 Test Item Value Reference Range Interpretation Comments WHITE BLOOD CELL COUNT (BEAKER) 7.0 K/ L 3.5-10.5 (test code = 775) RED BLOOD CELL COUNT (BEAKER) 3.17 M/ L 4.63-6.08 L (test code = 761) HEMOGLOBIN (BEAKER) (test code = 7.4 GM/DL 13.7-17.5 L 410) HEMATOCRIT (BEAKER) (test code = 25.4 % 40.1-51.0 L 411) MEAN CORPUSCULAR VOLUME (BEAKER) 80.1 fL 79.0-92.2 (test code = 753) MEAN CORPUSCULAR HEMOGLOBIN 23.3 pg 25.7-32.2 L (BEAKER) (test code = 751) MEAN CORPUSCULAR HEMOGLOBIN CONC 29.1 GM/DL 32.3-36.5 L (BEAKER) (test code = 752) RED CELL DISTRIBUTION WIDTH 26.2 % 11.6-14.4 H (BEAKER) (test code = 412) PLATELET COUNT (BEAKER) (test 339 K/CU MM 150-450 code = 756) MEAN PLATELET VOLUME (BEAKER) 9.5 fL 9.4-12.4 (test code = 754) NUCLEATED RED BLOOD CELLS 0 /100 WBC 0-0 (BEAKER) (test code = 413) HEMOGLOBIN AND [id number] 20:18:40 Test Item Value Reference Range Interpretation Comments HEMOGLOBIN (BEAKER) (test code = 7.7 GM/DL 13.7-17.5 L 410) HEMATOCRIT (BEAKER) (test code = 25.7 % 40.1-51.0 L 411) Lapper ID - [id number] METABOLIC [id number] 06:32:43 Test Item Value Reference Range Interpretation Comments SODIUM (BEAKER) 140 meq/L 136-145 (test code = 381) POTASSIUM (BEAKER) 3.9 meq/L 3.5-5.1 (test code = 379) CHLORIDE (BEAKER) 108 meq/L 98-107 H (test code = 382) CO2 (BEAKER) (test 25 meq/L 22-29 code = 355) BLOOD UREA NITROGEN 20 mg/dL 7-21 (BEAKER) (test code = 354) CREATININE (BEAKER) 0.94 mg/dL 0.57-1.25 (test code = 358) GLUCOSE RANDOM 84 mg/dL 70-105 (BEAKER) (test code = 652) CALCIUM (BEAKER) 8.7 mg/dL 8.4-10.2 (test code = 697) EGFR (BEAKER) (test 78 mL/min/1.73 ESTIMA LA GFR IS code = 1092) sq m NOT ACCURATE CREATININE CLEARANCE IN PREDICTING GLOMERULAR FILTRATION RATE . ESTIMATED GFR I S NOT APPLICABLE FOR DIALYSIS PATIEN TS. Lapper ID - MARZENA MCBC W/PLT COUNT & AUTO [id number] 06:09:12 Test Item Value Reference Range Interpretation Comments WHITE BLOOD CELL COUNT (BEAKER) 7.3 K/ L 3.5-10.5 (test code = 775) RED BLOOD CELL COUNT (BEAKER) 3.28 M/ L 4.63-6.08 L (test code = 761) HEMOGLOBIN (BEAKER) (test code = 7.5 GM/DL 13.7-17.5 L 410) HEMATOCRIT (BEAKER) (test code = 26.2 % 40.1-51.0 L 411) MEAN CORPUSCULAR VOLUME (BEAKER) 79.9 fL 79.0-92.2 (test code = 753) MEAN CORPUSCULAR HEMOGLOBIN 22.9 pg 25.7-32.2 L (BEAKER) (test code = 751) MEAN CORPUSCULAR HEMOGLOBIN CONC 28.6 GM/DL 32.3-36.5 L (BEAKER) (test code = 752) RED CELL DISTRIBUTION WIDTH 26.3 % 11.6-14.4 H (BEAKER) (test code = 412) PLATELET COUNT (BEAKER) (test 327 K/CU MM 150-450 code = 756) MEAN PLATELET VOLUME (BEAKER) 9.6 fL 9.4-12.4 (test code = 754) NUCLEATED RED BLOOD CELLS 0 /100 WBC 0-0 (BEAKER) (test code = 413) NEUTROPHILS RELATIVE PERCENT 79 % (BEAKER) (test code = 429) LYMPHOCYTES RELATIVE PERCENT 13 % (BEAKER) (test code = 430) MONOCYTES RELATIVE PERCENT 5 % (BEAKER) (test code = 431) EOSINOPHILS RELATIVE PERCENT 2 % (BEAKER) (test code = 432) BASOPHILS RELATIVE PERCENT 0 % (BEAKER) (test code = 437) NEUTROPHILS ABSOLUTE COUNT 5.77 K/ L 1.78-5.38 H (BEAKER) (test code = 670) LYMPHOCYTES ABSOLUTE COUNT 0.98 K/ L 1.32-3.57 L (BEAKER) (test code = 414) MONOCYTES ABSOLUTE COUNT (BEAKER) 0.37 K/ L 0.30-0.82 (test code = 415) EOSINOPHILS ABSOLUTE COUNT 0.14 K/ L 0.04-0.54 (BEAKER) (test code = 416) BASOPHILS ABSOLUTE COUNT (BEAKER) 0.02 K/ L 0.01-0.08 (test code = 417) IMMATURE GRANULOCYTES-RELATIVE 0 % 0-1 PERCENT (BEAKER) (test code = 2801) HEMOGLOBIN AND [id number] 00:13:44 Test Item Value Reference Range Interpretation Comments HEMOGLOBIN (BEAKER) (test code = 8.0 GM/DL 13.7-17.5 L 410) HEMATOCRIT (BEAKER) (test code = 28.1 % 40.1-51.0 L 411) Lapper ID - [id number]-COV2/RT-PCR ([facility])2021-05-15 18:07:21 Test Item Value Reference Range Interpretation Comments SARS-COV2/RT-PCR Negative Negative The SARS-Co V-2 target (test code = nucleic acids a re not [id number]) detected in thi s specimen. Negative result s do not preclude SARS-C oV-2 infection and s hould not be used as the yolanda e basis for patient managem ent decisions. Nega tive results must be combine d with clinical observ ations, patient history , and epidemiological information. A false negativ e result may occur if a spec imen is improperly addison ected, transported or handled. This SARS CoV-2 test is a rapid, real-oskar e RT-PCR test intended for e qualitative detection of nu cleic acid from SARS-CoV-2 in a nasopharyngeal swab specimen collected from individuals suspected of CO VID-19 by their healthcar e provider. This test has been authorized by FDA under an EUA for use by authorized laboratories. This test is only authorized for the duration of the declaration that circumstances exist justifying the authorization of emergency use of in vitro diagnostic tests for detection and/or diagnosis of COVID-19 under Section 564(b)(1) of the Federal Food, Drug and Cosmetic Act, 21 U.S.C. 360bbb- 3(b)(1), unless the authorization is terminated or revoked sooner. Fact Sheet for Healthcare Providers: https://www.iBuildApp/Documents/Xpert%20Xpress%20SARS%20CoV-2/Fact%20Sheets/302-5822%20SARS-COV -2%20HEALTHCARE%20PROVIDERS%20FACT%20SHEET.pdf Fact Sheet for Healthcare Patients: https://www.ChemiSense/Documents/Xpert %20Xpress%20SARS%20CoV-2/Fact%20Sheets/3023801%38ONWW-HAH-6%20PATIENT%20FACT%20 SHEET.pdfHIGH SENSITIVITY TROPONIN [id number] 15:44:19 Test Item Value Reference Range Interpretation Comments HIGH SENSITIVITY 6 pg/ml See_Comment [Automated message] TROPONIN I (test code = The system which [id number]) generated this result transmitted ref erence range: <=35. Th e reference range was not used to interpr et this result as normal/abnormal . Lapper ID - DBThe MOTORCYCLE DESIGNER STAT High Sensitivity Troponin-I results should be used in conjunctionwith other diagnostic information such as ECG, clinical observations and information, and patient symptoms to aid in the diagnosis of PR.[id number] 15:36:53 Test Item Value Reference Range Interpretation Comments MAGNESIUM (BEAKER) (test code = 2.1 mg/dL 1.6-2.6 627) Lapper ID - [id number] 15:36:53 Test Item Value Reference Range Interpretation Comments PHOSPHORUS (BEAKER) (test code = 3.3 mg/dL 2.3-4.7 604) Lapper ID - DBCOMPREHENSIVE METABOLIC [id number] 15:36:52 Test Item Value Reference Range Interpretation Comments TOTAL PROTEIN 5.9 gm/dL 6.0-8.3 L (BEAKER) (test code = 770) ALBUMIN (BEAKER) 3.4 g/dL 3.5-5.0 L (test code = 1145) ALKALINE PHOSPHATASE 59 U/L 40-150 (BEAKER) (test code = 346) BILIRUBIN TOTAL 0.6 mg/dL 0.2-1.2 (BEAKER) (test code = 377) SODIUM (BEAKER) (test 139 meq/L 136-145 code = 381) POTASSIUM (BEAKER) 3.4 meq/L 3.5-5.1 L (test code = 379) CHLORIDE (BEAKER) 107 meq/L 98-107 (test code = 382) CO2 (BEAKER) (test 22 meq/L 22-29 code = 355) BLOOD UREA NITROGEN 20 mg/dL 7-21 (BEAKER) (test code = 354) CREATININE (BEAKER) 1.01 mg/dL 0.57-1.25 (test code = 358) GLUCOSE RANDOM 112 mg/dL 70-105 H (BEAKER) (test code = 652) CALCIUM (BEAKER) 8.9 mg/dL 8.4-10.2 (test code = 697) AST (SGOT) (BEAKER) 12 U/L 5-34 (test code = 353) ALT (SGPT) (BEAKER) 21 U/L 6-55 (test code = 347) EGFR (BEAKER) (test 72 mL/min/1.73 ESTIMA LA GFR IS code = 1092) sq m NOT ACCURATE CREATININE CLEARANCE IN PREDICTING GLOMERULAR FILTRATION RATE . ESTIMATED GFR I S NOT APPLICABLE FOR DIALYSIS PATIEN TS. Lapper ID - DBCBC W/PLT COUNT & AUTO [id number] 15:12:30 Test Item Value Reference Range Interpretation Comments WHITE BLOOD CELL COUNT (BEAKER) 6.2 K/ L 3.5-10.5 (test code = 775) RED BLOOD CELL COUNT (BEAKER) 3.57 M/ L 4.63-6.08 L (test code = 761) HEMOGLOBIN (BEAKER) (test code = 8.3 GM/DL 13.7-17.5 L 410) HEMATOCRIT (BEAKER) (test code = 28.3 % 40.1-51.0 L 411) MEAN CORPUSCULAR VOLUME (BEAKER) 79.3 fL 79.0-92.2 (test code = 753) MEAN CORPUSCULAR HEMOGLOBIN 23.2 pg 25.7-32.2 L (BEAKER) (test code = 751) MEAN CORPUSCULAR HEMOGLOBIN CONC 29.3 GM/DL 32.3-36.5 L (BEAKER) (test code = 752) RED CELL DISTRIBUTION WIDTH 25.9 % 11.6-14.4 H (BEAKER) (test code = 412) PLATELET COUNT (BEAKER) (test 313 K/CU MM 150-450 code = 756) MEAN PLATELET VOLUME (BEAKER) 9.7 fL 9.4-12.4 (test code = 754) NUCLEATED RED BLOOD CELLS 0 /100 WBC 0-0 (BEAKER) (test code = 413) NEUTROPHILS RELATIVE PERCENT 77 % (BEAKER) (test code = 429) LYMPHOCYTES RELATIVE PERCENT 17 % (BEAKER) (test code = 430) MONOCYTES RELATIVE PERCENT 6 % (BEAKER) (test code = 431) EOSINOPHILS RELATIVE PERCENT 1 % (BEAKER) (test code = 432) BASOPHILS RELATIVE PERCENT 1 % (BEAKER) (test code = 437) NEUTROPHILS ABSOLUTE COUNT 4.72 K/ L 1.78-5.38 (BEAKER) (test code = 670) LYMPHOCYTES ABSOLUTE COUNT 1.02 K/ L 1.32-3.57 L (BEAKER) (test code = 414) MONOCYTES ABSOLUTE COUNT (BEAKER) 0.34 K/ L 0.30-0.82 (test code = 415) EOSINOPHILS ABSOLUTE COUNT 0.05 K/ L 0.04-0.54 (BEAKER) (test code = 416) BASOPHILS ABSOLUTE COUNT (BEAKER) 0.03 K/ L 0.01-0.08 (test code = 417) IMMATURE GRANULOCYTES-RELATIVE 0 % 0-1 PERCENT (BEAKER) (test code = 2801) RAD, CHEST, 1 VIEW, NON [id number] 13:55:00Reason for exam:->MELENAReason for exam:->GENERAL ILLNESSReason for exam:->GENERALIZED WEAKNESS, NOT ASSOCIATED WITH EXTREMITIESShould this be performed at the bedside?->Yes [facility]ENTERName[facility]AYAN : 1945 Sex: MFINAL REPORT INDICATION: MELENAGENERAL ILLNESSGENERALIZED WEAKNESS, NOT ASSOCIATED WITH EXTREMITIES COMPARISON: 05/01/2021 TECHNIQUE: Single frontal view of the chest. FINDINGS: Lungs and pleura: Clear lungs. No effusion.Heart and mediastinum: Normal heart size. Unremarkable mediastinal contours.Osseous structures: No acute abnormality.Other: None. IMPRESSION: No acute intrathoracic abnormality. Signed: Gaby Scott MDReport Verified Date/Time: 05/15/2021 13:55:04 Reading Location: [facility] Radiology Reading Room [id number] 07:19:33 Test Item Value Reference Range Interpretation Comments MAGNESIUM (BEAKER) (test code = 2.4 mg/dL 1.6-2.6 627) Lapper ID - PIAYA LBASIC METABOLIC [id number] 07:19:32 Test Item Value Reference Range Interpretation Comments SODIUM (BEAKER) 137 meq/L 136-145 (test code = 381) POTASSIUM (BEAKER) 4.1 meq/L 3.5-5.1 (test code = 379) CHLORIDE (BEAKER) 104 meq/L 98-107 (test code = 382) CO2 (BEAKER) (test 23 meq/L 22-29 code = 355) BLOOD UREA NITROGEN 21 mg/dL 7-21 (BEAKER) (test code = 354) CREATININE (BEAKER) 1.31 mg/dL 0.57-1.25 H (test code = 358) GLUCOSE RANDOM 107 mg/dL 70-105 H (BEAKER) (test code = 652) CALCIUM (BEAKER) 8.5 mg/dL 8.4-10.2 (test code = 697) EGFR (BEAKER) (test 53 mL/min/1.73 ESTIMA LA GFR IS code = 1092) sq m NOT ACCURATE CREATININE CLEARANCE IN PREDICTING GLOMERULAR FILTRATION RATE . ESTIMATED GFR I S NOT APPLICABLE FOR DIALYSIS PATIEN TS. Lapper ID - PIAYA LCBC W/PLT COUNT & AUTO [id number] 06:34:22 Test Item Value Reference Range Interpretation Comments WHITE BLOOD CELL COUNT 9.2 K/ L 3.5-10.5 (BEAKER) (test code = 775) RED BLOOD CELL COUNT 4.18 M/ L 4.63-6.08 L (BEAKER) (test code = 761) HEMOGLOBIN (BEAKER) 9.6 GM/DL 13.7-17.5 L (test code = 410) HEMATOCRIT (BEAKER) 32.6 % 40.1-51.0 L (test code = 411) MEAN CORPUSCULAR 78.0 fL 79.0-92.2 L Discordant result VOLUME (BEAKER) (test compar ed to previous code = 753) result. Clinica l correlation req uired MEAN CORPUSCULAR 23.0 pg 25.7-32.2 L HEMOGLOBIN (BEAKER) (test code = 751) MEAN CORPUSCULAR 29.4 GM/DL 32.3-36.5 L HEMOGLOBIN CONC (BEAKER) (test code = 752) RED CELL DISTRIBUTION 24.7 % 11.6-14.4 H WIDTH (BEAKER) (test code = 412) PLATELET COUNT 259 K/CU MM 150-450 (BEAKER) (test code = 756) MEAN PLATELET VOLUME 9.8 fL 9.4-12.4 (BEAKER) (test code = 754) NUCLEATED RED BLOOD 0 /100 WBC 0-0 CELLS (BEAKER) (test code = 413) NEUTROPHILS RELATIVE 74 % PERCENT (BEAKER) (test code = 429) LYMPHOCYTES RELATIVE 17 % PERCENT (BEAKER) (test code = 430) MONOCYTES RELATIVE 7 % PERCENT (BEAKER) (test code = 431) EOSINOPHILS RELATIVE 1 % PERCENT (BEAKER) (test code = 432) BASOPHILS RELATIVE 0 % PERCENT (BEAKER) (test code = 437) NEUTROPHILS ABSOLUTE 6.82 K/ L 1.78-5.38 H COUNT (BEAKER) (test code = 670) LYMPHOCYTES ABSOLUTE 1.53 K/ L 1.32-3.57 COUNT (BEAKER) (test code = 414) MONOCYTES ABSOLUTE 0.66 K/ L 0.30-0.82 COUNT (BEAKER) (test code = 415) EOSINOPHILS ABSOLUTE 0.13 K/ L 0.04-0.54 COUNT (BEAKER) (test code = 416) BASOPHILS ABSOLUTE 0.01 K/ L 0.01-0.08 COUNT (BEAKER) (test code = 417) IMMATURE 1 % 0-1 GRANULOCYTES-RELATIVE PERCENT (BEAKER) (test code = 2801) UREA NITROGEN, RANDOM [id number] 17:46:02 Test Item Value Reference Range Interpretation Comments UREA NITROGEN URINE (BEAKER) (test 404 mg/dL code = 538) Reference Range: No NormalsOperator ID - BSSODIUM, RANDOM [id number] 17:46:01 Test Item Value Reference Range Interpretation Comments SODIUM URINE (BEAKER) (test code = 101 meq/L 243) Reference Range: No NormalsOperator ID - BSCREATININE, RANDOM [id number] 17:46:00 Test Item Value Reference Range Interpretation Comments CREATININE URINE (BEAKER) (test 61.7 mg/dL code = 375) Reference Range: No NormalsOperator ID - BSURINALYSIS WITH MICROSCOPIC IF [id number] 16:41:11 Test Item Value Reference Range Interpretation Comments COLOR (BEAKER) (test code = 470) Light Yellow CLARITY (BEAKER) (test code = Clear 469) SPECIFIC GRAVITY UA (BEAKER) 1.013 1.001-1.035 (test code = 468) PH UA (BEAKER) (test code = 467) 6.5 5.0-8.0 PROTEIN UA (BEAKER) (test code = Negative Negative 464) GLUCOSE UA (BEAKER) (test code = Negative Negative 365) KETONES UA (BEAKER) (test code = Negative Negative 371) BILIRUBIN UA (BEAKER) (test code Negative Negative = 462) BLOOD UA (BEAKER) (test code = Negative Negative 461) NITRITE UA (BEAKER) (test code = Negative Negative 465) LEUKOCYTE ESTERASE UA (BEAKER) Negative Negative (test code = 466) UROBILINOGEN UA (BEAKER) (test 0.2 mg/dL 0.2-1.0 code = 463) SOURCE(BEAKER) (test code = 2795) Lapper ID - [auto]BLOOD [id number] 11:01:01 Test Item Value Reference Range Interpretation Comments CULTURE (BEAKER) (test No growth in 5 days code = 1095) BLOOD [id number] 11:01:01 Test Item Value Reference Range Interpretation Comments CULTURE (BEAKER) (test No growth in 5 days code = 1095) The specimen volume collected for this blood culture was below the optimum (10 mL per bottle or 20 mL total). Use of lower volumes may adversely affect recovery and/or detection times of some organisms.[id number] 05:38:27 Test Item Value Reference Range Interpretation Comments MAGNESIUM (BEAKER) (test code = 2.3 mg/dL 1.6-2.6 627) Lapper ID - PIAYA LBASIC METABOLIC [id number] 05:38:26 Test Item Value Reference Range Interpretation Comments SODIUM (BEAKER) 137 meq/L 136-145 (test code = 381) POTASSIUM (BEAKER) 4.1 meq/L 3.5-5.1 (test code = 379) CHLORIDE (BEAKER) 103 meq/L 98-107 (test code = 382) CO2 (BEAKER) (test 24 meq/L 22-29 code = 355) BLOOD UREA NITROGEN 20 mg/dL 7-21 (BEAKER) (test code = 354) CREATININE (BEAKER) 1.40 mg/dL 0.57-1.25 H (test code = 358) GLUCOSE RANDOM 109 mg/dL 70-105 H (BEAKER) (test code = 652) CALCIUM (BEAKER) 8.8 mg/dL 8.4-10.2 (test code = 697) EGFR (BEAKER) (test 49 mL/min/1.73 ESTIMA LA GFR IS code = 1092) sq m NOT ACCURATE CREATININE CLEARANCE IN PREDICTING GLOMERULAR FILTRATION RATE . ESTIMATED GFR I S NOT APPLICABLE FOR DIALYSIS PATIEN TS. Lapper ID - PIAYA LPROTHROMBIN [id number] 05:23:25 Test Item Value Reference Range Interpretation Comments PROTIME (BEAKER) 16.9 seconds 11.9-14.2 H (test code = 759) INR (BEAKER) (test 1.39 See_Comment [Automat ed message] code = 370) The system [employer] generated this result transmitted ref erence range: <=5.90. The reference range was not used to int erpret this result as normal/abnormal . RECOMMENDED COUMADIN/WARFARIN INR THERAPY RANGESSTANDARD DOSE: 2.0 - 3.0 Includes: PROPHYLAXIS forvenous thrombosis, systemic embolization; TREATMENT for venous thrombosis and/or pulmonary embolus.HIGH RISK: Target INR is 2.5-3.5 for patients with mechanical heart valves.CBC W/PLT COUNT & AUTO DIFFERENTIAL 2021-05-09 05:22:39 Test Item Value Reference Range Interpretation Comments WHITE BLOOD CELL COUNT (BEAKER) 9.3 K/ L 3.5-10.5 (test code = 775) RED BLOOD CELL COUNT (BEAKER) 4.15 M/ L 4.63-6.08 L (test code = 761) HEMOGLOBIN (BEAKER) (test code = 9.3 GM/DL 13.7-17.5 L 410) HEMATOCRIT (BEAKER) (test code = 30.7 % 40.1-51.0 L 411) MEAN CORPUSCULAR VOLUME (BEAKER) 74.0 fL 79.0-92.2 L (test code = 753) MEAN CORPUSCULAR HEMOGLOBIN 22.4 pg 25.7-32.2 L (BEAKER) (test code = 751) MEAN CORPUSCULAR HEMOGLOBIN CONC 30.3 GM/DL 32.3-36.5 L (BEAKER) (test code = 752) RED CELL DISTRIBUTION WIDTH 24.2 % 11.6-14.4 H (BEAKER) (test code = 412) PLATELET COUNT (BEAKER) (test 266 K/CU MM 150-450 code = 756) MEAN PLATELET VOLUME (BEAKER) 9.8 fL 9.4-12.4 (test code = 754) NUCLEATED RED BLOOD CELLS 0 /100 WBC 0-0 (BEAKER) (test code = 413) NEUTROPHILS RELATIVE PERCENT 73 % (BEAKER) (test code = 429) LYMPHOCYTES RELATIVE PERCENT 18 % (BEAKER) (test code = 430) MONOCYTES RELATIVE PERCENT 7 % (BEAKER) (test code = 431) EOSINOPHILS RELATIVE PERCENT 1 % (BEAKER) (test code = 432) BASOPHILS RELATIVE PERCENT 0 % (BEAKER) (test code = 437) NEUTROPHILS ABSOLUTE COUNT 6.75 K/ L 1.78-5.38 H (BEAKER) (test code = 670) LYMPHOCYTES ABSOLUTE COUNT 1.67 K/ L 1.32-3.57 (BEAKER) (test code = 414) MONOCYTES ABSOLUTE COUNT (BEAKER) 0.66 K/ L 0.30-0.82 (test code = 415) EOSINOPHILS ABSOLUTE COUNT 0.12 K/ L 0.04-0.54 (BEAKER) (test code = 416) BASOPHILS ABSOLUTE COUNT (BEAKER) 0.01 K/ L 0.01-0.08 (test code = 417) IMMATURE GRANULOCYTES-RELATIVE 0 % 0-1 PERCENT (BEAKER) (test code = 2801) COMPREHENSIVE METABOLIC [id number] 16:17:38 Test Item Value Reference Range Interpretation Comments TOTAL PROTEIN 6.7 gm/dL 6.0-8.3 (BEAKER) (test code = 770) ALBUMIN (BEAKER) 3.7 g/dL 3.5-5.0 (test code = 1145) ALKALINE PHOSPHATASE 65 U/L 40-150 (BEAKER) (test code = 346) BILIRUBIN TOTAL 0.6 mg/dL 0.2-1.2 (BEAKER) (test code = 377) SODIUM (BEAKER) (test 136 meq/L 136-145 code = 381) POTASSIUM (BEAKER) 4.5 meq/L 3.5-5.1 (test code = 379) CHLORIDE (BEAKER) 102 meq/L 98-107 (test code = 382) CO2 (BEAKER) (test 24 meq/L 22-29 code = 355) BLOOD UREA NITROGEN 22 mg/dL 7-21 H (BEAKER) (test code = 354) CREATININE (BEAKER) 1.49 mg/dL 0.57-1.25 H (test code = 358) GLUCOSE RANDOM 176 mg/dL 70-105 H (BEAKER) (test code = 652) CALCIUM (BEAKER) 9.3 mg/dL 8.4-10.2 (test code = 697) AST (SGOT) (BEAKER) 12 U/L 5-34 (test code = 353) ALT (SGPT) (BEAKER) 24 U/L 6-55 (test code = 347) EGFR (BEAKER) (test 46 mL/min/1.73 ESTIMA LA GFR IS code = 1092) sq m NOT ACCURATE CREATININE CLEARANCE IN PREDICTING GLOMERULAR FILTRATION RATE . ESTIMATED GFR I S NOT APPLICABLE FOR DIALYSIS PATIEN TS. Lapper ID - DBSARS-COV2/RT-PCR ([facility])2021-05-08 12:32:16 Test Item Value Reference Range Interpretation Comments SARS-COV2/RT-PCR (test Negative Not Detected, Negative, code = 6202935) See external report for linked test SARS-COV-2 [facility] (test code = 4647435) Negative result for this test determines that SARS-CoV-2 RNA was not present in the specimen above the Limit of Detection (LOD). However, Negative results do not preclude SARS-CoV-2 infection and should not be used as the sole basis for treatment or patient management decisions. Negative results mustbe combined with clinical observations, patient history, and epidemiological information. A false negative result may occur if a specimen is improperly collected, transported or handled. A false negative result should be considered if patient's recent exposures or clinical presentation indicate that COVID-19 (SARS-CoV-2) is likely and diagnostic tests for other causes of illness are negative. Re-testing should be considered in cases of suspected false negatives.The limit of detection for this assay is 800 copies/mL.This SARS CoV-2 test is a real-time RT-PCR test intended for the qualitative detection of nucleic acid from SARS-CoV-2 in a nasopharyngeal swab specimen collected from individuals susp ected of COVID-19 by their healthcare provider.This test has not been Food and Drug Administration (FDA) cleared or approved. This is a modified version of an approved Emergency Use Authorization (EUA) and is in the process of review by the FDA. Once authorized by the FDA, the issued EUA will be effective until the declaration that circumstances exist justifying the authorization of the emergency use of in vitro diagnostic tests for detection and/or diagnosis of COVID-19 is terminated under Section 564(b)(2) of the Act or the EUA is revoked under Section 564(g) of the Act.Fact Sheet for Healthcare Providers:https://www.Bricsnet/sites/default/files/product/documents/Fact_Shee n_AQ_Fpkphwfiq_Jeen_CCDO-JyI-6.pdfFact Sheet for Healthcare Patients:https://www.[employer]/sites/default/files/product/ documents/Miim_Bihka_Zinuccve_Synx_YJCC-GpM-4.pdfPerforming Laboratory:[facility] [address], [place] [address]CIR (HEMOGRAM ONLY) 2021-05-08 06:41:47 Test Item Value Reference Range Interpretation Comments WHITE BLOOD CELL COUNT (BEAKER) 11.1 K/ L 3.5-10.5 H (test code = 775) RED BLOOD CELL COUNT (BEAKER) 4.38 M/ L 4.63-6.08 L (test code = 761) HEMOGLOBIN (BEAKER) (test code = 9.8 GM/DL 13.7-17.5 L 410) HEMATOCRIT (BEAKER) (test code = 32.7 % 40.1-51.0 L 411) MEAN CORPUSCULAR VOLUME (BEAKER) 74.7 fL 79.0-92.2 L (test code = 753) MEAN CORPUSCULAR HEMOGLOBIN 22.4 pg 25.7-32.2 L (BEAKER) (test code = 751) MEAN CORPUSCULAR HEMOGLOBIN CONC 30.0 GM/DL 32.3-36.5 L (BEAKER) (test code = 752) RED CELL DISTRIBUTION WIDTH 23.9 % 11.6-14.4 H (BEAKER) (test code = 412) PLATELET COUNT (BEAKER) (test 274 K/CU MM 150-450 code = 756) MEAN PLATELET VOLUME (BEAKER) 9.5 fL 9.4-12.4 (test code = 754) NUCLEATED RED BLOOD CELLS 0 /100 WBC 0-0 (BEAKER) (test code = 413) [facility], MULTI, PHARM, [id number] 13:41:00Unlisted Reason for Exam - Click Yes and Enter Reason Below->No [facility] : 1945 Sex: MFINAL REPORT PROCEDURE: Rest/Stress MYOCARDIAL PERFUSION SPECT with regadenoson\\XA9\\ CPT CODE: 59418 INDICATION: Chest pain PROTOCOL: 10.6 mCi of Tc-99m sestamibi was injected iv at rest, and SPECT (tomographic) images were obtained. Also, 30.7 mCi of Tc-99m sestamibi was injected iv at expected peak pharmacologic effect. SPECT images were obtained. Functional images were not obtained due to gating irregularity. PRELIMINARY STRESS TEST DATAFROM NONINVASIVE CARDIOLOGY: Pharmacologic stress was by 10- second iv infusion of 0.4 mg of regadenoson. Radiotracer was injected 30 seconds after start of stress. Heart rate was 104 beats/min at restand 115 beats/min (80 % of MPHR) at tracer injection. BP was 156/89 mmHg at rest and 156/74 mmHg at t racer injection. Stress was stopped for predetermined endpoint. The patient experienced dyspnea and chest tightness; treatment was not required. Preliminary ECG evaluation was not available from Cardiology at the time of this report. (Final ECG interpretation and other stress and monitoring data are reported separately by Cardiology.) IMAGING FINDINGS: Study quality is good. Images obtained after rest and stress injections show mild decrease in activity in the inferior LV. LV and RV volumes appear normal. IMPRESSION: 1. Probably normal study. 2. Appropriate pharmacologic stress. 3. Probably normal myocardial perfusion. Inferior decrease is most likely related to attenuation effect. 4. No prior study. Signed: Ronnie Velasquez MDReport Verified Date/Time: 05/07/2021 13:41:19 CBC (HEMOGRAM ONLY)2021-05-07 06:26:24 Test Item Value Reference Range Interpretation Comments WHITE BLOOD CELL COUNT (BEAKER) 11.6 K/ L 3.5-10.5 H (test code = 775) RED BLOOD CELL COUNT (BEAKER) 4.34 M/ L 4.63-6.08 L (test code = 761) HEMOGLOBIN (BEAKER) (test code = 9.6 GM/DL 13.7-17.5 L 410) HEMATOCRIT (BEAKER) (test code = 32.9 % 40.1-51.0 L 411) MEAN CORPUSCULAR VOLUME (BEAKER) 75.8 fL 79.0-92.2 L (test code = 753) MEAN CORPUSCULAR HEMOGLOBIN 22.1 pg 25.7-32.2 L (BEAKER) (test code = 751) MEAN CORPUSCULAR HEMOGLOBIN CONC 29.2 GM/DL 32.3-36.5 L (BEAKER) (test code = 752) RED CELL DISTRIBUTION WIDTH 23.2 % 11.6-14.4 H (BEAKER) (test code = 412) PLATELET COUNT (BEAKER) (test 243 K/CU MM 150-450 code = 756) MEAN PLATELET VOLUME (BEAKER) 10.1 fL 9.4-12.4 (test code = 754) NUCLEATED RED BLOOD CELLS 1 /100 WBC 0-0 H (BEAKER) (test code = 413) BASIC METABOLIC [id number] 06:10:10 Test Item Value Reference Range Interpretation Comments SODIUM (BEAKER) 136 meq/L 136-145 (test code = 381) POTASSIUM (BEAKER) 3.9 meq/L 3.5-5.1 (test code = 379) CHLORIDE (BEAKER) 103 meq/L 98-107 (test code = 382) CO2 (BEAKER) (test 25 meq/L 22-29 code = 355) BLOOD UREA NITROGEN 18 mg/dL 7-21 (BEAKER) (test code = 354) CREATININE (BEAKER) 1.04 mg/dL 0.57-1.25 (test code = 358) GLUCOSE RANDOM 93 mg/dL 70-105 (BEAKER) (test code = 652) CALCIUM (BEAKER) 8.6 mg/dL 8.4-10.2 (test code = 697) EGFR (BEAKER) (test 69 mL/min/1.73 ESTIMA LA GFR IS code = 1092) sq m NOT ACCURATE CREATININE CLEARANCE IN PREDICTING GLOMERULAR FILTRATION RATE . ESTIMATED GFR I S NOT APPLICABLE FOR DIALYSIS PATIEN TS. Lapper ID - SHANE GCBC (HEMOGRAM ONLY)2021-05-06 05:35:30 Test Item Value Reference Range Interpretation Comments WHITE BLOOD CELL COUNT (BEAKER) 14.7 K/ L 3.5-10.5 H (test code = 775) RED BLOOD CELL COUNT (BEAKER) 4.05 M/ L 4.63-6.08 L (test code = 761) HEMOGLOBIN (BEAKER) (test code = 9.0 GM/DL 13.7-17.5 L 410) HEMATOCRIT (BEAKER) (test code = 30.8 % 40.1-51.0 L 411) MEAN CORPUSCULAR VOLUME (BEAKER) 76.0 fL 79.0-92.2 L (test code = 753) MEAN CORPUSCULAR HEMOGLOBIN 22.2 pg 25.7-32.2 L (BEAKER) (test code = 751) MEAN CORPUSCULAR HEMOGLOBIN CONC 29.2 GM/DL 32.3-36.5 L (BEAKER) (test code = 752) RED CELL DISTRIBUTION WIDTH 23.1 % 11.6-14.4 H (BEAKER) (test code = 412) PLATELET COUNT (BEAKER) (test 280 K/CU MM 150-450 code = 756) MEAN PLATELET VOLUME (BEAKER) 9.8 fL 9.4-12.4 (test code = 754) NUCLEATED RED BLOOD CELLS 1 /100 WBC 0-0 H (BEAKER) (test code = 413) [id number] 17:04:33 Test Item Value Reference Range Interpretation Comments PARTIAL THROMBOPLASTIN TIME 75.5 seconds 22.5-36.0 H (BEAKER) (test code = 760) [id number] 08:48:29 Test Item Value Reference Range Interpretation Comments PARTIAL THROMBOPLASTIN TIME 39.1 seconds 22.5-36.0 H (BEAKER) (test code = 760) [id number] 07:02:01 Test Item Value Reference Range Interpretation Comments PARTIAL THROMBOPLASTIN TIME 132.5 seconds 22.5-36.0 H (BEAKER) (test code = 760) CBC (HEMOGRAM ONLY)2021-05-05 06:43:36 Test Item Value Reference Range Interpretation Comments WHITE BLOOD CELL COUNT (BEAKER) 19.3 K/ L 3.5-10.5 H (test code = 775) RED BLOOD CELL COUNT (BEAKER) 4.16 M/ L 4.63-6.08 L (test code = 761) HEMOGLOBIN (BEAKER) (test code = 9.2 GM/DL 13.7-17.5 L 410) HEMATOCRIT (BEAKER) (test code = 31.2 % 40.1-51.0 L 411) MEAN CORPUSCULAR VOLUME (BEAKER) 75.0 fL 79.0-92.2 L (test code = 753) MEAN CORPUSCULAR HEMOGLOBIN 22.1 pg 25.7-32.2 L (BEAKER) (test code = 751) MEAN CORPUSCULAR HEMOGLOBIN CONC 29.5 GM/DL 32.3-36.5 L (BEAKER) (test code = 752) RED CELL DISTRIBUTION WIDTH 22.5 % 11.6-14.4 H (BEAKER) (test code = 412) PLATELET COUNT (BEAKER) (test 312 K/CU MM 150-450 code = 756) MEAN PLATELET VOLUME (BEAKER) 9.7 fL 9.4-12.4 (test code = 754) NUCLEATED RED BLOOD CELLS 1 /100 WBC 0-0 H (BEAKER) (test code = 413) BASIC METABOLIC [id number] 06:36:45 Test Item Value Reference Range Interpretation Comments SODIUM (BEAKER) 138 meq/L 136-145 (test code = 381) POTASSIUM (BEAKER) 3.9 meq/L 3.5-5.1 (test code = 379) CHLORIDE (BEAKER) 104 meq/L 98-107 (test code = 382) CO2 (BEAKER) (test 26 meq/L 22-29 code = 355) BLOOD UREA NITROGEN 18 mg/dL 7-21 (BEAKER) (test code = 354) CREATININE (BEAKER) 1.04 mg/dL 0.57-1.25 (test code = 358) GLUCOSE RANDOM 102 mg/dL 70-105 (BEAKER) (test code = 652) CALCIUM (BEAKER) 8.5 mg/dL 8.4-10.2 (test code = 697) EGFR (BEAKER) (test 69 mL/min/1.73 ESTIMA LA GFR IS code = 1092) sq m NOT ACCURATE CREATININE CLEARANCE IN PREDICTING GLOMERULAR FILTRATION RATE . ESTIMATED GFR I S NOT APPLICABLE FOR DIALYSIS PATIEN TS. Lapper ID - SHANE [id number] 22:11:03 Test Item Value Reference Range Interpretation Comments PARTIAL THROMBOPLASTIN TIME 88.2 seconds 22.5-36.0 H (BEAKER) (test code = 760) PERIPHERAL BLOOD SMEAR - PATHOLOGIST [id number] 18:22:51 Test Item Value Reference Range Interpretation Comments PERIPHERAL SMR Microcytic hypochromic REVIEW (BEAKER) anemia with marked (test code = 0980) anisopoikilocytosis and polychromasia, consistent with history of LEESA. Leukocytosis with predominantly mature granulocytes. No blasts seen. Adequate platelets with unremarkable morphology. [id number] Andreina Schmidt, 112 (BEAKER) (test M.D code = 2849) (MANUAL DIFFERENTIAL)2021-05-04 12:48:00 Test Item Value Reference Range Interpretation Comments NEUTROPHILS - REL (DIFF) (BEAKER) 89 % (test code = 1359) LYMPHOCYTES - REL (DIFF) (BEAKER) 5 % (test code = 1360) MONOCYTES - REL (DIFF) (BEAKER) 6 % (test code = 1361) NEUTROPHILS - ABS (DIFF) (BEAKER) 16.47 K/ L 1.80-8.00 H (test code = 1365) LYMPHOCYTES - ABS (DIFF) (BEAKER) 0.93 K/ L 1.48-4.50 L (test code = 1366) MONOCYTES - ABS (DIFF) (BEAKER) 1.11 K/ L 0.00-1.30 (test code = 1367) TOTAL COUNTED (BEAKER) (test code 100 = 1351) MANUAL NRBC PER 100 CELLS /100 WBC 0-0 H (BEAKER) (test code = 1353) WBC MORPHOLOGY (BEAKER) (test Normal code = 487) PLT MORPHOLOGY (BEAKER) (test Normal code = 486) SCHISTOCYTES (BEAKER) (test code 1+ few = 765) ELLIPTOCYTES (BEAKER) (test code 2+ moderate = 962) OVALOCYTES (BEAKER) (test code = 2+ moderate 477) POIKILOCYTES (BEAKER) (test code 2+ moderate = 966) [id number] 12:13:05 Test Item Value Reference Range Interpretation Comments PARTIAL THROMBOPLASTIN TIME 55.6 seconds 22.5-36.0 H (BEAKER) (test code = 760) TISSUE [id number] 11:53:42Surgical Pathology Report Case: [id number] Authorizing Provider: Yolanda Lyle MD Collected: 05/03/2021 10:38 AM Ordering Location: [address] Received: 05/03/2021 02:25 PM Service Pathologist: Ciro Diamond MD Specimen: Polyp, Colon - Right/Ascending, x3 PART A RIGHT ASCENDING COLON POLYPX3, POLYPECTOMY:TUBULAR ADENOMA Signing Pathologist Direct Phone Line: [phone] signed by Ciro Diamond MD on 05/04/2021 at 11:53 [id number] colonReceived in formalin labeled the patient's name, accession number and "ascending colon polyp" are multiple chavez soft tissue fragments measuring up to 0.5 cm in greatest dimension which are filtered and submitted in toto in A1.URSULA Martell, HT (ASCP)performedBaylor Riverside [facility], Department of Pathology, [address] [place] [address], PfgzbxS[facility], [facility] of [facility]ology, [address] [place] [address], RalejeS[facility], Department of Pathology, [address] [place] [address], [id number] 11:13:03 Test Item Value Reference Range Interpretation Comments PARTIAL THROMBOPLASTIN TIME > seconds 22.5-36.0 HH (BEAKER) (test code = 760) URINALYSIS [id number] 10:30:34 Test Item Value Reference Range Interpretation Comments RBC UA (BEAKER) (test code = 519) 3 /HPF WBC UA (BEAKER) (test code = 520) 2 /HPF BACTERIA (BEAKER) (test code = None Seen 517) MUCUS (BEAKER) (test code = 1574) Moderate CRYSTALS, URINE (BEAKER) (test None Seen code = 1521) AMORPHOUS CRYSTALS (BEAKER) (test Occasional code = 1584) Lapper ID - techURINALYSIS WITH MICROSCOPIC IF [id number] 10:23:22 Test Item Value Reference Range Interpretation Comments COLOR (BEAKER) (test code = 470) Yellow CLARITY (BEAKER) (test code = 469) Hazy SPECIFIC GRAVITY UA (BEAKER) (test 1.025 1.001-1.035 code = 468) PH UA (BEAKER) (test code = 467) 5.5 5.0-8.0 PROTEIN UA (BEAKER) (test code = 10 mg/dL Negative A 464) GLUCOSE UA (BEAKER) (test code = Negative Negative 365) KETONES UA (BEAKER) (test code = Negative Negative 371) BILIRUBIN UA (BEAKER) (test code = Negative Negative 462) BLOOD UA (BEAKER) (test code = 461) Negative Negative NITRITE UA (BEAKER) (test code = Negative Negative 465) LEUKOCYTE ESTERASE UA (BEAKER) Small Negative A (test code = 466) UROBILINOGEN UA (BEAKER) (test code 0.2 mg/dL 0.2-1.0 = 463) SOURCE(BEAKER) (test code = 2795) Lapper ID - [auto]BASIC METABOLIC [id number] 06:55:55 Test Item Value Reference Range Interpretation Comments SODIUM (BEAKER) 137 meq/L 136-145 (test code = 381) POTASSIUM (BEAKER) 4.3 meq/L 3.5-5.1 (test code = 379) CHLORIDE (BEAKER) 105 meq/L 98-107 (test code = 382) CO2 (BEAKER) (test 24 meq/L 22-29 code = 355) BLOOD UREA NITROGEN 17 mg/dL 7-21 (BEAKER) (test code = 354) CREATININE (BEAKER) 1.03 mg/dL 0.57-1.25 (test code = 358) GLUCOSE RANDOM 116 mg/dL 70-105 H (BEAKER) (test code = 652) CALCIUM (BEAKER) 8.4 mg/dL 8.4-10.2 (test code = 697) EGFR (BEAKER) (test 70 mL/min/1.73 ESTIMA LA GFR IS code = 1092) sq m NOT ACCURATE CREATININE CLEARANCE IN PREDICTING GLOMERULAR FILTRATION RATE . ESTIMATED GFR I S NOT APPLICABLE FOR DIALYSIS PATIEN TS. Lapper ID - SHANE GCBC (HEMOGRAM ONLY)2021-05-04 06:35:01 Test Item Value Reference Range Interpretation Comments WHITE BLOOD CELL COUNT (BEAKER) 18.5 K/ L 3.5-10.5 H (test code = 775) RED BLOOD CELL COUNT (BEAKER) 4.13 M/ L 4.63-6.08 L (test code = 761) HEMOGLOBIN (BEAKER) (test code = 9.1 GM/DL 13.7-17.5 L 410) HEMATOCRIT (BEAKER) (test code = 30.6 % 40.1-51.0 L 411) MEAN CORPUSCULAR VOLUME (BEAKER) 74.1 fL 79.0-92.2 L (test code = 753) MEAN CORPUSCULAR HEMOGLOBIN 22.0 pg 25.7-32.2 L (BEAKER) (test code = 751) MEAN CORPUSCULAR HEMOGLOBIN CONC 29.7 GM/DL 32.3-36.5 L (BEAKER) (test code = 752) RED CELL DISTRIBUTION WIDTH 22.2 % 11.6-14.4 H (BEAKER) (test code = 412) PLATELET COUNT (BEAKER) (test 320 K/CU MM 150-450 code = 756) MEAN PLATELET VOLUME (BEAKER) 10.0 fL 9.4-12.4 (test code = 754) NUCLEATED RED BLOOD CELLS 0 /100 WBC 0-0 (BEAKER) (test code = 413) BLOOD [id number] 18:01:00 Test Item Value Reference Range Interpretation Comments CULTURE (BEAKER) (test No growth in 5 days code = 1095) BLOOD [id number] 18:00:59 Test Item Value Reference Range Interpretation Comments CULTURE (BEAKER) (test No growth in 5 days code = 1095) TISSUE [id number] 17:23:09Surgical Pathology Report Case: [id number] Authorizing Provider: Yolanda Lyle MD Collected: 05/02/2021 03:08 PM Ordering Location: [address] Received: 05/03/2021 09:22 AM Service Pathologist: Ciro Diamond MD Specimens: A) - Duodenum, r/o celiac B) -Biopsy, Gastric C) - Biopsy, Gastric, fundus D) - Biopsy, Gastroesophageal Junction, r/o Barretts PART A DUODENAL BIOPSY:SMALL INTESTINAL MUCOSA WITH PRESERVED VILLOUS ARCHITECTURE.NO INCREASED EPITHELIAL LYMPHOCYTES, GRANULOMAS, DYSPLASIA OR INVASIVE CARCINOMA SEEN.PART B GASTRIC BIOPSY: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 PART D GASTROESOPHAGEAL JUNCTION, BIOPSY:SQUAMOCOLUMNAR MUCOSA WITH FOCAL INTESTINAL (GOBLET CELL) METAPLASIA.NEGATIVE FOR DYSPLASIA ORINVASIVE CARCINOMA. Signing Pathologist Direct Phone Line: [phone] signed by Ciro Diamond MD on 05/03/2021 at 5:23 [id number], [id number] iron deficiency anemiaA. Duodenum tissue, rule out celiacB. Biopsy, gastric tissueC. Biopsy, gastric tissue fundusD. Biopsy, gastroesophageal junction, rule out Ruby's A. Received in formalin labeled with the patient's name, accession number and "duodenum" are three chavez-pink tissues ranging from 0.2 to 0.4 cm in greatest dimension. The specimen is submitted in toto following filtration in cassette A1.B. Received in formalinlabeled with the patient's name, accession number and "biopsy, gastric" are three chavez-pink tissues ranging from 0.2 to 0.3 cm in greatest dimension. The specimen is submitted in toto following filtration in cassette B1.C. Received in formalin labeled with the patient's name, accession number "gastric biopsy tissue" is a single chavez-pink tissue measuring 0.3 cm in greatest dimension. The specimen is submitted in toto following filtration in cassette C1.D. Received in formalin labeled "biopsy, gastroesophageal junction" are two lowe-white to red-brown tissues ranging each measuring 0.1 cm in greatest dimension. The specimen is submitted in toto following filtration in cassette D1. KM/ewPERFORMEDThe interpretation of this case included the use of immunohistochemistry or special stains.BLOCK B1- WARTHIN STARRYBLOCK C1- WARTHIN STARRYControl Slides Examined: In-house known positive controls were evaluated along with the test tissue. These control slides run alongside of the patients sample show appropriate staining. Internal positive and negative controls when available are evaluated Immunohistochemistry technical testing was performed at [facility], Pathology Laboratory where it was developed and its performance characteristics were determined. It has not been cleared or approved by the U.S. Food and Drug Administration. The FDA has determined that such clearance or approval is not necessary. The test is used for clinical purposes. It should not be regarded as investigational or for research. This laboratory is certified under the Clinical Laboratory Improvement Amendments of 1988 (CLIA-88) as qualified to perform high complexity clinical laboratory testing.[facility], Department of Pathology, [address] [place] [address], AvekhbS[facility], Department of [facility]ology, [address] [place] [address], WrlkvyS[facility], Department of Pathology, [address] [place] [address], NZZSO METABOLIC PANEL 2021-05-03 06:21:43 Test Item Value Reference Range Interpretation Comments SODIUM (BEAKER) 135 meq/L 136-145 L (test code = 381) POTASSIUM (BEAKER) 4.3 meq/L 3.5-5.1 (test code = 379) CHLORIDE (BEAKER) 102 meq/L 98-107 (test code = 382) CO2 (BEAKER) (test 26 meq/L 22-29 code = 355) BLOOD UREA NITROGEN 20 mg/dL 7-21 (BEAKER) (test code = 354) CREATININE (BEAKER) 1.05 mg/dL 0.57-1.25 (test code = 358) GLUCOSE RANDOM 90 mg/dL 70-105 (BEAKER) (test code = 652) CALCIUM (BEAKER) 8.4 mg/dL 8.4-10.2 (test code = 697) EGFR (BEAKER) (test 68 mL/min/1.73 ESTIMA LA GFR IS code = 1092) sq m NOT ACCURATE CREATININE CLEARANCE IN PREDICTING GLOMERULAR FILTRATION RATE . ESTIMATED GFR I S NOT APPLICABLE FOR DIALYSIS PATIEN TS. Lapper ID - MARZENA MTSH/FREE T4 IF [id number] 05:55:30 Test Item Value Reference Range Interpretation Comments THYROID STIMULATING HORMONE 0.869 uIU/mL 0.350-4.940 (BEAKER) (test code = 772) Lapper ID - MARZENA MB-TYPE NATRIURETIC FACTOR (BNP)2021-05-03 05:32:14 Test Item Value Reference Range Interpretation Comments B-TYPE NATRIURETIC PEPTIDE (BEAKER) 452 pg/mL 0-100 H (test code = 700) Lapper ID - MARZENA MCBC (HEMOGRAM ONLY)2021-05-03 05:22:14 Test Item Value Reference Range Interpretation Comments WHITE BLOOD CELL COUNT (BEAKER) 14.5 K/ L 3.5-10.5 H (test code = 775) RED BLOOD CELL COUNT (BEAKER) 4.39 M/ L 4.63-6.08 L (test code = 761) HEMOGLOBIN (BEAKER) (test code = 9.6 GM/DL 13.7-17.5 L 410) HEMATOCRIT (BEAKER) (test code = 32.8 % 40.1-51.0 L 411) MEAN CORPUSCULAR VOLUME (BEAKER) 74.7 fL 79.0-92.2 L (test code = 753) MEAN CORPUSCULAR HEMOGLOBIN 21.9 pg 25.7-32.2 L (BEAKER) (test code = 751) MEAN CORPUSCULAR HEMOGLOBIN CONC 29.3 GM/DL 32.3-36.5 L (BEAKER) (test code = 752) RED CELL DISTRIBUTION WIDTH 21.3 % 11.6-14.4 H (BEAKER) (test code = 412) PLATELET COUNT (BEAKER) (test 354 K/CU MM 150-450 code = 756) MEAN PLATELET VOLUME (BEAKER) 9.7 fL 9.4-12.4 (test code = 754) NUCLEATED RED BLOOD CELLS 1 /100 WBC 0-0 H (BEAKER) (test code = 413) (CELLAVISION MANUAL DIFF)2021-05-02 11:59:18 Test Item Value Reference Range Interpretation Comments NEUTROPHILS - REL 83 % (CELLAVISION)(BEAKER) (test code = 2816) LYMPHOCYTES - REL 9 % (CELLAVISION)(BEAKER) (test code = 2817) MONOCYTES - REL 8 % (CELLAVISION)(BEAKER) (test code = 2818) NEUTROPHILS - ABS 13.28 K/ul 1.78-5.38 H (CELLAVISION)(BEAKER) (test code = 2830) LYMPHOCYTES - ABS 1.44 K/ul 1.32-3.57 (CELLAVISION)(BEAKER) (test code = 2831) MONOCYTES - ABS 1.28 K/uL 0.30-0.82 H (CELLAVISION)(BEAKER) (test code = 2832) TOTAL COUNTED (BEAKER) (test code 100 = 1351) MANUAL NRBC PER 100 CELLS 2 /100 WBC 0-0 H (BEAKER) (test code = 1353) SMUDGE CELLS (BEAKER) (test code Present = 1371) GIANT PLATELETS (BEAKER) (test Present code = 313) POLYCHROMATOPHILLIC RBCS(BEAKER) 1+ few (test code = 478) HYPOCHROMIA (BEAKER) (test code = 2+ moderate 963) ANISOCYTOSIS (BEAKER) (test code 3+ many = 961) MICROCYTES (BEAKER) (test code = 3+ many 965) POIKILOCYTES (BEAKER) (test code 3+ many = 966) SCHISTOCYTES (BEAKER) (test code 1+ few = 765) ELLIPTOCYTES (BEAKER) (test code 2+ moderate = 962) TEAR DROP CELLS (BEAKER) (test 1+ few code = 481) ARTIFACT (CELLAVISION)(BEAKER) Present (test code = 3432) PLATELET CONCENTRATION Adequate (CELLAVISION)(BEAKER) (test code = 3438) Lapper ID - Luca Perry comments: Slide comments:CBC W/PLT COUNT & AUTO [id number] 11:59:17 Test Item Value Reference Range Interpretation Comments WHITE BLOOD CELL COUNT (BEAKER) 16.0 K/ L 3.5-10.5 H (test code = 775) RED BLOOD CELL COUNT (BEAKER) 4.69 M/ L 4.63-6.08 (test code = 761) HEMOGLOBIN (BEAKER) (test code = 10.2 GM/DL 13.7-17.5 L 410) HEMATOCRIT (BEAKER) (test code = 34.3 % 40.1-51.0 L 411) MEAN CORPUSCULAR VOLUME (BEAKER) 73.1 fL 79.0-92.2 L (test code = 753) MEAN CORPUSCULAR HEMOGLOBIN 21.7 pg 25.7-32.2 L (BEAKER) (test code = 751) MEAN CORPUSCULAR HEMOGLOBIN CONC 29.7 GM/DL 32.3-36.5 L (BEAKER) (test code = 752) RED CELL DISTRIBUTION WIDTH 21.2 % 11.6-14.4 H (BEAKER) (test code = 412) PLATELET COUNT (BEAKER) (test 407 K/CU MM 150-450 code = 756) MEAN PLATELET VOLUME (BEAKER) 9.7 fL 9.4-12.4 (test code = 754) NUCLEATED RED BLOOD CELLS 1 /100 WBC 0-0 H (BEAKER) (test code = 413) BASIC METABOLIC [id number] 09:20:42 Test Item Value Reference Range Interpretation Comments SODIUM (BEAKER) 136 meq/L 136-145 (test code = 381) POTASSIUM (BEAKER) 4.1 meq/L 3.5-5.1 (test code = 379) CHLORIDE (BEAKER) 101 meq/L 98-107 (test code = 382) CO2 (BEAKER) (test 25 meq/L 22-29 code = 355) BLOOD UREA NITROGEN 23 mg/dL 7-21 H (BEAKER) (test code = 354) CREATININE (BEAKER) 1.18 mg/dL 0.57-1.25 (test code = 358) GLUCOSE RANDOM 116 mg/dL 70-105 H (BEAKER) (test code = 652) CALCIUM (BEAKER) 8.5 mg/dL 8.4-10.2 (test code = 697) EGFR (BEAKER) (test 60 mL/min/1.73 ESTIMA LA GFR IS code = 1092) sq m NOT ACCURATE CREATININE CLEARANCE IN PREDICTING GLOMERULAR FILTRATION RATE . ESTIMATED GFR I S NOT APPLICABLE FOR DIALYSIS PATIEN TS. Lapper ID - KEARA WPT/[id number] 09:05:40 Test Item Value Reference Range Interpretation Comments PROTIME (BEAKER) (test 15.0 seconds 11.9-14.2 H code = 759) INR (BEAKER) (test 1.20 See_Comment [Automat ed code = 370) message] The sy stem which generated this result transmitted reference range : <=5.90. The reference range was not used to interpret this result as normal/abnormal . PARTIAL THROMBOPLASTIN 33.6 seconds 22.5-36.0 TIME (BEAKER) (test code = 760) RECOMMENDED COUMADIN/WARFARIN INR THERAPY RANGESSTANDARD DOSE: 2.0 - 3.0 Includes: PROPHYLAXIS forvenous thrombosis, systemic embolization; TREATMENT for venous thrombosis and/or pulmonary embolus.HIGH RISK: Target INR is 2.5-3.5 for patients with mechanical heart valves.SARS-COV2/RT-PCR ([facility]) 2021-05-01 12:34:25 Test Item Value Reference Range Interpretation Comments SARS-COV2/RT-PCR (test Negative Not Detected, Negative, code = 4794134) See external report for linked test SARS-COV-2 [facility] (test code = 8928492) Negative result for this test determines that SARS-CoV-2 RNA was not present in the specimen above the Limit of Detection (LOD). However, Negative results do not preclude SARS-CoV-2 infection and should not be used as the sole basis for treatment or patient management decisions. Negative results mustbe combined with clinical observations, patient history, and epidemiological information. A false negative result may occur if a specimen is improperly collected, transported or handled. A false negative result should be considered if patient's recent exposures or clinical presentation indicate that COVID-19 (SARS-CoV-2) is likely and diagnostic tests for other causes of illness are negative. Re-testing should be considered in cases of suspected false negatives.The limit of detection for this assay is 800 copies/mL.This SARS CoV-2 test is a real-time RT-PCR test intended for the qualitative detection of nucleic acid from SARS-CoV-2 in a nasopharyngeal swab specimen collected from individuals susp ected of COVID-19 by their healthcare provider.This test has not been Food and Drug Administration (FDA) cleared or approved. This is a modified version of an approved Emergency Use Authorization (EUA) and is in the process of review by the FDA. Once authorized by the FDA, the issued EUA will be effective until the declaration that circumstances exist justifying the authorization of the emergency use of in vitro diagnostic tests for detection and/or diagnosis of COVID-19 is terminated under Section 564(b)(2) of the Act or the EUA is revoked under Section 564(g) of the Act.Fact Sheet for Healthcare Providers:https://www.[employer]/sites/default/files/product/documents/Fact_Shee s_GL_Jekerxgpo_Ypeq_UCXT-InV-8.pdfFact Sheet for Healthcare Patients:https://www.[employer]/sites/default/files/product/ documents/Wemv_Krzbg_Jdgouzsg_Dhqr_VRTE-ZaX-9.pdfPerforming Laboratory:[facility], [place] [address]XCV, CHEST, 1 VIEW, NON [id number] 09:29:00Reason for exam:->shortness of breathShould this be performed at the bedside?->Yes [facility]ame: CADEN NARAYAN : 1945 Sex: MFINAL REPORT Chest AP portable History provided: Shortness of breath Heart size magnified by projection. Lungs are clear and vascularity normal. Signed: Jeffers, PhilipMDReport Verified Date/Time: 05/01/2021 09:29:27 Reading Location: [facility] Radiology Reading Room CBC (HEMOGRAM ONLY)2021-05-01 06:54:20 Test Item Value Reference Range Interpretation Comments WHITE BLOOD CELL COUNT (BEAKER) 15.2 K/ L 3.5-10.5 H (test code = 775) RED BLOOD CELL COUNT (BEAKER) 4.60 M/ L 4.63-6.08 L (test code = 761) HEMOGLOBIN (BEAKER) (test code = 9.8 GM/DL 13.7-17.5 L 410) HEMATOCRIT (BEAKER) (test code = 33.2 % 40.1-51.0 L 411) MEAN CORPUSCULAR VOLUME (BEAKER) 72.2 fL 79.0-92.2 L (test code = 753) MEAN CORPUSCULAR HEMOGLOBIN 21.3 pg 25.7-32.2 L (BEAKER) (test code = 751) MEAN CORPUSCULAR HEMOGLOBIN CONC 29.5 GM/DL 32.3-36.5 L (BEAKER) (test code = 752) RED CELL DISTRIBUTION WIDTH 20.9 % 11.6-14.4 H (BEAKER) (test code = 412) PLATELET COUNT (BEAKER) (test 431 K/CU MM 150-450 code = 756) MEAN PLATELET VOLUME (BEAKER) 10.0 fL 9.4-12.4 (test code = 754) NUCLEATED RED BLOOD CELLS 1 /100 WBC 0-0 H (BEAKER) (test code = 413) BASIC METABOLIC [id number] 06:24:43 Test Item Value Reference Range Interpretation Comments SODIUM (BEAKER) 133 meq/L 136-145 L (test code = 381) POTASSIUM (BEAKER) 4.0 meq/L 3.5-5.1 (test code = 379) CHLORIDE (BEAKER) 100 meq/L 98-107 (test code = 382) CO2 (BEAKER) (test 23 meq/L 22-29 code = 355) BLOOD UREA NITROGEN 21 mg/dL 7-21 (BEAKER) (test code = 354) CREATININE (BEAKER) 1.00 mg/dL 0.57-1.25 (test code = 358) GLUCOSE RANDOM 123 mg/dL 70-105 H (BEAKER) (test code = 652) CALCIUM (BEAKER) 8.4 mg/dL 8.4-10.2 (test code = 697) EGFR (BEAKER) (test 72 mL/min/1.73 ESTIMA [place] GFR IS code = 1092) sq m NOT ACCURATE CREATININE CLEARANCE IN PREDICTING GLOMERULAR FILTRATION RATE . ESTIMATED GFR I S NOT APPLICABLE FOR DIALYSIS PATIEN TS. Lapper ID - PIAYA LBASIC METABOLIC [id number] 15:17:17 Test Item Value Reference Range Interpretation Comments SODIUM (BEAKER) 132 meq/L 136-145 L (test code = 381) POTASSIUM (BEAKER) 4.0 meq/L 3.5-5.1 (test code = 379) CHLORIDE (BEAKER) 97 meq/L 98-107 L (test code = 382) CO2 (BEAKER) (test 22 meq/L 22-29 code = 355) BLOOD UREA NITROGEN 25 mg/dL 7-21 H (BEAKER) (test code = 354) CREATININE (BEAKER) 1.20 mg/dL 0.57-1.25 (test code = 358) GLUCOSE RANDOM 280 mg/dL 70-105 H (BEAKER) (test code = 652) CALCIUM (BEAKER) 8.4 mg/dL 8.4-10.2 (test code = 697) EGFR (BEAKER) (test 59 mL/min/1.73 ESTIMA [place] GFR IS code = 1092) sq m NOT ACCURATE CREATININE CLEARANCE IN PREDICTING GLOMERULAR FILTRATION RATE . ESTIMATED GFR I S NOT APPLICABLE FOR DIALYSIS PATIEN TS. Lapper ID - DBCBC W/PLT COUNT & AUTO [id number] 14:42:15 Test Item Value Reference Range Interpretation Comments WHITE BLOOD CELL COUNT (BEAKER) 13.6 K/ L 3.5-10.5 H (test code = 775) RED BLOOD CELL COUNT (BEAKER) 4.54 M/ L 4.63-6.08 L (test code = 761) HEMOGLOBIN (BEAKER) (test code = 9.7 GM/DL 13.7-17.5 L 410) HEMATOCRIT (BEAKER) (test code = 33.3 % 40.1-51.0 L 411) MEAN CORPUSCULAR VOLUME (BEAKER) 73.3 fL 79.0-92.2 L (test code = 753) MEAN CORPUSCULAR HEMOGLOBIN 21.4 pg 25.7-32.2 L (BEAKER) (test code = 751) MEAN CORPUSCULAR HEMOGLOBIN CONC 29.1 GM/DL 32.3-36.5 L (BEAKER) (test code = 752) RED CELL DISTRIBUTION WIDTH 20.5 % 11.6-14.4 H (BEAKER) (test code = 412) PLATELET COUNT (BEAKER) (test 476 K/CU MM 150-450 H code = 756) MEAN PLATELET VOLUME (BEAKER) 9.8 fL 9.4-12.4 (test code = 754) NUCLEATED RED BLOOD CELLS 2 /100 WBC 0-0 H (BEAKER) (test code = 413) NEUTROPHILS RELATIVE PERCENT 88 % (BEAKER) (test code = 429) LYMPHOCYTES RELATIVE PERCENT 4 % (BEAKER) (test code = 430) MONOCYTES RELATIVE PERCENT 7 % (BEAKER) (test code = 431) EOSINOPHILS RELATIVE PERCENT 0 % (BEAKER) (test code = 432) BASOPHILS RELATIVE PERCENT 0 % (BEAKER) (test code = 437) NEUTROPHILS ABSOLUTE COUNT 12.02 K/ L 1.78-5.38 H (BEAKER) (test code = 670) LYMPHOCYTES ABSOLUTE COUNT 0.56 K/ L 1.32-3.57 L (BEAKER) (test code = 414) MONOCYTES ABSOLUTE COUNT (BEAKER) 0.93 K/ L 0.30-0.82 H (test code = 415) EOSINOPHILS ABSOLUTE COUNT 0.00 K/ L 0.04-0.54 L (BEAKER) (test code = 416) BASOPHILS ABSOLUTE COUNT (BEAKER) 0.01 K/ L 0.01-0.08 (test code = 417) IMMATURE GRANULOCYTES-RELATIVE 1 % 0-1 PERCENT (BEAKER) (test code = 2801) HEMOGLOBIN AND [id number] 14:41:31 Test Item Value Reference Range Interpretation Comments HEMOGLOBIN (BEAKER) (test code = 9.7 GM/DL 13.7-17.5 L 410) HEMATOCRIT (BEAKER) (test code = 33.4 % 40.1-51.0 L 411) Lapper ID - [id number], [id number] 02:24:00Unlisted Reason for Exam - Click Yes and Enter Reason Below->NoWill this procedure require oral co ntrast?->NoAUGUSTIN [facility] : 1945 Sex: MFINAL REPORT EXAM: CT of the abdomen and pelvis, with contrast CL INICAL HISTORY: Abdominal distention. TECHNIQUE: CT of the abdomen and pelvis was performed with intravenous contrast administration. This exam was performed according to our departmental dose optimization program which includes automated exposure control, adjustment of the mA and/or kV according to patient's size and/or use of iterative reconstructive technique. COMPARISON: None FINDINGS: LOWER CHEST: Mild bilateral lower lobe dependent atelectasis.HEPATOBILIARY: Layering sludge in the gallbladder. No focal liver lesions. No biliary duct dilatation.PANCREAS: Within normal limits.SPLEEN: Within normal limits.ADRENALS: Within normal limits.KIDNEYS/URETERS: 2.9 x 2.5 cm simple cyst in the left kidn ey. 1.1 cm proteinaceous or hemorrhagic cyst in the right renal lower pole. Subcentimeter bilateral renal hypodensities too small to characterize. Punctate nonobstructing left renal stone. No hydroureteronephrosis. URINARY BLADDER: Mild diffuse mural thickening, likely due to underdistention.REPRODUCTIVE ORGANS: Within normal limits. BOWEL/MESENTERY: Colonic diverticulosis without acute diverticulitis. No bowel obstruction or abnormal wall thickening. Normal appendix.PERITONEUM/RETROPERITONEUM: No free air, free fluid or fluid collection. VESSELS: Calcific atherosclerosis. No abdominal aortic aneurysm. Retroaortic left renal vein. LYMPH NODES: No abdominal or pelvic lymphadenopathy.SOFT TISSUES: Within normal limits.BONES: Degenerative changes of the visualized spine IMPRESSION: Colonic diverticulosis without acute diverticulitis. No bowel obstruction, free air or fluid collection.Bilateral renal cysts.Punctate nonobstructing left renal stone. Signed: Aman Diane MDReport Verified Date/Time:04/30/2021 02:24:34 HEMOGLOBIN [id number] 09:35:28 Test Item Value Reference Range Interpretation Comments HEMOGLOBIN A1C (BEAKER) (test code = 6.6 % 4.3-6.1 H 368) HEPATIC FUNCTION [id number] 05:59:52 Test Item Value Reference Range Interpretation Comments TOTAL PROTEIN (BEAKER) (test code = 6.5 gm/dL 6.0-8.3 770) ALBUMIN (BEAKER) (test code = 1145) 3.8 g/dL 3.5-5.0 BILIRUBIN TOTAL (BEAKER) (test code 0.8 mg/dL 0.2-1.2 = 377) BILIRUBIN DIRECT (BEAKER) (test 0.4 mg/dL 0.1-0.5 code = 706) ALKALINE PHOSPHATASE (BEAKER) (test 71 U/L 40-150 code = 346) AST (SGOT) (BEAKER) (test code = 10 U/L 5-34 353) ALT (SGPT) (BEAKER) (test code = 38 U/L 6-55 347) Lapper ID - MARZENA [id number] 05:59:50 Test Item Value Reference Range Interpretation Comments MAGNESIUM (BEAKER) (test code = 2.9 mg/dL 1.6-2.6 H 627) Lapper ID - MARZENA MLIPID [id number] 05:59:50 Test Item Value Reference Range Interpretation Comments TRIGLYCERIDES (BEAKER) (test code = 60 mg/dL 540) CHOLESTEROL (BEAKER) (test code = 117 mg/dL 631) HDL CHOLESTEROL (BEAKER) (test code 56 mg/dL = 976) LDL CHOLESTEROL CALCULATED (BEAKER) 49 mg/dL (test code = 633) Triglyceride Reference Range: Low Risk <150 Borderline 150-199 High Risk 200-499 Very High Risk >=500Cholesterol Reference Range: Low Risk <200 Borderline 200-239 High Risk >240HDL Cholesterol Reference Range: Low Risk >=60 High Risk <40LDL Cholesterol Reference Range: Optimal <100 Near Optimal 100-129 Borderline 130-159 High 160-189 Very High >=190 Lapper ID - MARZENA MBASIC METABOLIC [id number] 05:59:49 Test Item Value Reference Range Interpretation Comments SODIUM (BEAKER) 139 meq/L 136-145 (test code = 381) POTASSIUM (BEAKER) 3.8 meq/L 3.5-5.1 (test code = 379) CHLORIDE (BEAKER) 102 meq/L 98-107 (test code = 382) CO2 (BEAKER) (test 28 meq/L 22-29 code = 355) BLOOD UREA NITROGEN 20 mg/dL 7-21 (BEAKER) (test code = 354) CREATININE (BEAKER) 0.86 mg/dL 0.57-1.25 (test code = 358) GLUCOSE RANDOM 179 mg/dL 70-105 H (BEAKER) (test code = 652) CALCIUM (BEAKER) 9.0 mg/dL 8.4-10.2 (test code = 697) EGFR (BEAKER) (test 86 mL/min/1.73 [place]IMA [place] GFR IS code = 1092) sq m NOT ACCURATE CREATININE CLEARANCE IN PREDICTING GLOMERULAR FILTRATION RATE . ESTIMATED GFR I S NOT APPLICABLE FOR DIALYSIS PATIEN TS. Lapper ID - MARZENA MB-TYPE NATRIURETIC FACTOR (BNP)2021-04-29 05:49:20 Test Item Value Reference Range Interpretation Comments B-TYPE NATRIURETIC PEPTIDE (BEAKER) 329 pg/mL 0-100 H (test code = 700) Lapper ID - [id number] TIME/[id number] 05:43:23 Test Item Value Reference Range Interpretation Comments PROTIME (BEAKER) 15.3 seconds 11.9-14.2 H (test code = 759) INR (BEAKER) (test 1.23 See_Comment [Automat ed message] code = 370) The system [employer] generated this result transmitted ref erence range: <=5.90. The reference range was not used to int erpret this result as normal/abnormal . RECOMMENDED COUMADIN/WARFARIN INR THERAPY RANGESSTANDARD DOSE: 2.0 - 3.0 Includes: PROPHYLAXIS forvenous thrombosis, systemic embolization; TREATMENT for venous thrombosis and/or pulmonary embolus.HIGH RISK: Target INR is 2.5-3.5 for patients with mechanical heart valves.CBC W/PLT COUNT & AUTO DIFFERENTIAL 2021-04-29 05:29:39 Test Item Value Reference Range Interpretation Comments WHITE BLOOD CELL COUNT (BEAKER) 9.9 K/ L 3.5-10.5 (test code = 775) RED BLOOD CELL COUNT (BEAKER) 4.19 M/ L 4.63-6.08 L (test code = 761) HEMOGLOBIN (BEAKER) (test code = 8.9 GM/DL 13.7-17.5 L 410) HEMATOCRIT (BEAKER) (test code = 30.1 % 40.1-51.0 L 411) MEAN CORPUSCULAR VOLUME (BEAKER) 71.8 fL 79.0-92.2 L (test code = 753) MEAN CORPUSCULAR HEMOGLOBIN 21.2 pg 25.7-32.2 L (BEAKER) (test code = 751) MEAN CORPUSCULAR HEMOGLOBIN CONC 29.6 GM/DL 32.3-36.5 L (BEAKER) (test code = 752) RED CELL DISTRIBUTION WIDTH 20.4 % 11.6-14.4 H (BEAKER) (test code = 412) PLATELET COUNT (BEAKER) (test 418 K/CU MM 150-450 code = 756) MEAN PLATELET VOLUME (BEAKER) 10.1 fL 9.4-12.4 (test code = 754) NUCLEATED RED BLOOD CELLS 3 /100 WBC 0-0 H (BEAKER) (test code = 413) NEUTROPHILS RELATIVE PERCENT 83 % (BEAKER) (test code = 429) LYMPHOCYTES RELATIVE PERCENT 8 % (BEAKER) (test code = 430) MONOCYTES RELATIVE PERCENT 8 % (BEAKER) (test code = 431) EOSINOPHILS RELATIVE PERCENT 0 % (BEAKER) (test code = 432) BASOPHILS RELATIVE PERCENT 0 % (BEAKER) (test code = 437) NEUTROPHILS ABSOLUTE COUNT 8.28 K/ L 1.78-5.38 H (BEAKER) (test code = 670) LYMPHOCYTES ABSOLUTE COUNT 0.75 K/ L 1.32-3.57 L (BEAKER) (test code = 414) MONOCYTES ABSOLUTE COUNT (BEAKER) 0.82 K/ L 0.30-0.82 (test code = 415) EOSINOPHILS ABSOLUTE COUNT 0.00 K/ L 0.04-0.54 L (BEAKER) (test code = 416) BASOPHILS ABSOLUTE COUNT (BEAKER) 0.00 K/ L 0.01-0.08 L (test code = 417) IMMATURE GRANULOCYTES-RELATIVE 1 % 0-1 PERCENT (BEAKER) (test code = 2801) BASIC METABOLIC [id number] 20:29:00 Test Item Value Reference Range Interpretation Comments SODIUM (BEAKER) 138 meq/L 136-145 (test code = 381) POTASSIUM (BEAKER) 4.3 meq/L 3.5-5.1 (test code = 379) CHLORIDE (BEAKER) 100 meq/L 98-107 (test code = 382) CO2 (BEAKER) (test 25 meq/L 22-29 code = 355) BLOOD UREA NITROGEN 22 mg/dL 7-21 H (BEAKER) (test code = 354) CREATININE (BEAKER) 1.05 mg/dL 0.57-1.25 (test code = 358) GLUCOSE RANDOM 234 mg/dL 70-105 H (BEAKER) (test code = 652) CALCIUM (BEAKER) 8.9 mg/dL 8.4-10.2 (test code = 697) EGFR (BEAKER) (test 68 mL/min/1.73 ESTIMA [place] GFR IS code = 1092) sq m NOT ACCURATE CREATININE CLEARANCE IN PREDICTING GLOMERULAR FILTRATION RATE . ESTIMATED GFR I S NOT APPLICABLE FOR DIALYSIS PATIEN TS. Lapper ID - [id number] 16:56:00 Test Item Value Reference Range Interpretation Comments FERRITIN (BEAKER) (test code = 13.77 ng/mL 5.00-275.00 361) Lapper ID - DBHIGH SENSITIVITY TROPONIN [id number] 16:42:00 Test Item Value Reference Range Interpretation Comments HIGH SENSITIVITY 13 pg/ml See_Comment [Automated message] TROPONIN I (test code = The system which [id number]) generated this result transmitted ref erence range: <=35. Th e reference range was not used to int erpret this result as normal/abnormal . Lapper ID - DBThe MOTORCYCLE DESIGNER STAT High Sensitivity Troponin-I results should be used in conjunctionwith other diagnostic information such as ECG, clinical observations and information, and patient symptoms to aid in the diagnosis of PR.HIGH SENSITIVITY TROPONIN [id number] 16:41:00 Test Item Value Reference Range Interpretation Comments HIGH SENSITIVITY 15 pg/ml See_Comment [Automated message] TROPONIN I (test code = The system which [id number]) generated this result transmitted ref erence range: <=35. Th e reference range was not used to int erpret this result as normal/abnormal . Lapper ID - DBThe MOTORCYCLE DESIGNER STAT High Sensitivity Troponin-I results should be used in conjunctionwith other diagnostic information such as ECG, clinical observations and information, and patient symptoms to aid in the diagnosis of PR.IRON, TIBC, % SAT. (WITHOUT FERRITIN)2021-04-28 16:35:00 Test Item Value Reference Range Interpretation Comments IRON (BEAKER) (test code = 547) 22.0 ug/dL 40.0-160.0 L TOTAL IRON BINDING CAPACITY 473 ug/dL 250-450 H (BEAKER) (test code = 769) IRON % SATURATION (2) (BEAKER) 5 % 20-55 L (test code = 2590) Lapper ID - DBHEMOGLOBIN AND [id number] 15:56:00 Test Item Value Reference Range Interpretation Comments HEMOGLOBIN (BEAKER) (test code = 9.2 GM/DL 13.7-17.5 L 410) HEMATOCRIT (BEAKER) (test code = 30.6 % 40.1-51.0 L 411) Lapper ID - [id number]
--- NOTE | 2021-07-01 20:19 | CON ---
Date of Consultation: 06/26/2021 Reason For Consultation: Shortness of breath and atrial fibrillation. History Of Present Illness: The patient is 75, has a history of atrial fibrillation. He is on chron ic anticoagulation therapy, diastolic congestive heart failure, and the patient has anemia, hypertens ion, dyslipidemia, and gastroesophageal reflux disease. Came in with shortness of breath for few day s with some edema in the lower extremity, atypical chest pain, difficulty sleeping at night. Denies any nausea or vomiting. Has an appointment with Gastroenterology in the near future for hemorrhoid t reatment. He came in, was found to be in atrial fibrillation, heart rate was 130, and was given IV L opressor with some improvement. Chest x-ray shows some mild pulmonary edema. He received IV Lasix. Hemoglobin was 7.3. BNP was 1936 with negative troponin. The patient was admitted for further eval uation and treatment. Allergies: ASPIRIN. Review of Systems: Negative. Social History: Negative. Family History: Negative. Medications: At home included Eliquis, aspirin, Lipitor, iron, Lasix, pantoprazole. He is also on m etoprolol, thiamine, zinc, and prednisone. Past Medical History: Include cataract, history of COVID in the past, diastolic congestive heart cheri lure, GERD, anemia, hyperlipidemia, history of CVA, hypertension, and chronic atrial fibrillation. Family History: Positive for diabetes and stroke. Review of Systems: Negative. Social History: Negative. Family History: Noncontributory. Physical Examination: General: He was in atrial fibrillation, rate of 130. HEENT: Exam is negative. Neck: Supple. No bruit. Chest: Clear to auscultation and percussion. Cardiac: Exam revealed a regular rhythm and rate. No murmurs, gallops, or rubs. Abdomen: Benign. Extremities: Revealed no clubbing, cyanosis. He had trace edema. Diagnostic Data: Showed a hemoglobin of 7.3. Chest x-ray showed mild volume overload. Impression And Plan: 1.Atrial fibrillation, paroxysmal, rapid ventricular response, may be exacerbated by anemia. 2.Acute on chronic diastolic congestive heart failure. 3.Hypertension. 4.Gastroesophageal reflux disease. 5.Dyslipidemia. The patient is already on Eliquis at home. Impression And Plan: Atrial fibrillation. We need to continue his beta moses. Continue his Eliqu is, give him IV Lasix. Consider transfusion. Hopefully discharge him in the next day or two. He sh ould have an echocardiogram, although his last ejection fraction is noted to be a 55% with aortic scl erosis but no stenosis. He has had a carotid Doppler that showed some mild atherosclerosis, but no f ocal stenosis. He maybe a candidate for other antiarrhythmic other than the beta-moses. I will se e him as an outpatient and make a decision whether we should have more extensive cardiac workup with echo and Lexiscan and maybe change his metoprolol to either amiodarone or sotalol or consider cardioversion or ablation. I will discuss that with him as an outpatient. MICHAEL/RICHA Voice ID: [id number] Report ID: [id number]
== END 2021-06-27 16:29 | disposition home or self-care (01) ==
LOC: ER 12:42 → ERHOLD 16:02 → 2ND 19:17
PROVIDERS: ADMIT Family Medicine; ATTEND Family Medicine
DX: I48.0 Paroxysmal atrial fibrillation (principal); I11.0 Hypertensive heart disease with heart failure; I50.33 Acute on chronic diastolic (congestive) heart failure; K21.9 Gastro-esophageal reflux disease without esophagitis; E78.5 Hyperlipidemia, unspecified; Z86.73 Personal history of transient ischemic attack (TIA), and cerebral infarction without residual deficits; Z79.01 Long term (current) use of anticoagulants; Z86.16 Personal history of COVID-19; Z20.822 Contact with and (suspected) exposure to COVID-19; D50.9 Iron deficiency anemia, unspecified
CPT/HCPCS: 36430; 93005; 85025 ×2; 80048; 36415 ×2; 86900; 83735 ×2; 86850; 82550; 84132; 85610; 86901; 80076; 85018; 85014; 84484 ×3; 82553; 80053; 83880; 71045; 96375; 96374; 99285; U0003; J1940 ×4; J3480; G0378 ×2; P9016 ×2; J7050 ×2; J2405

== ENCOUNTER 2021-06-30 18:21 | Emergency (ER) | payer OTHER ==
[2021-06-30 19:23] LABS: Absolute Lymphocytes (CBC) 1.7 K/uL (0.7-4.9); Basophils % 0.9 % (0-1.3); Hematocrit 29.2 % (39.6-49.0); Lymphocytes % 23.6 % (15.3-44.8); MPV 8.1 fL (7.6-11.3); RBC Red Blood Cell Count 3.73 M/uL (4.33-5.43)
--- NOTE | 2021-06-30 19:23 | RAD REPORT ---
EXAM DESCRIPTION: RAD - Chest Single View - 06/30/2021 7:16 pm CLINICAL HISTORY: Tremors COMPARISON: Chest Single View dated 06/26/2021; Chest Single View dated 06/04/2021; Chest Single View dated 06/03/2021; Chest Single View dated 04/28/2021 FINDINGS: Lines: None. Lungs: No evidence of edema or pneumonia. Pleural: No significant pleural effusions or pneumothorax. Cardiac: Cardiomegaly. Bones: No acute fractures. Other: IMPRESSION: No acute cardiopulmonary disease.
[2021-06-30 19:25] LABS: Protime INR 1.26
[2021-06-30 19:45] LABS: ALT/SGPT 32 U/L (12-78); AST/SGOT 10 U/L (15-37); Albumin 3.4 g/dL (3.4-5.0); Alkaline Phosphatase 89 U/L (45-117); BUN Blood Urea Nitrogen 11 mg/dL (7-18); Bicarbonate 23 mmol/L (21-32); Bilirubin Direct 0.1 mg/dL (0-0.2); Bilirubin Total 0.3 mg/dL (0.2-1.0); Glucose Level 102 mg/dL (74-106); Magnesium 2.4 mg/dL (1.8-2.4); NT PRO-BNP 1398 pg/mL (<450); Potassium 3.6 mmol/L (3.5-5.1); Protein, Total 6.8 g/dL (6.4-8.2); Sodium Level 139 mmol/L (136-145); Troponin (Emerg Dept Use Only) < 0.02 ng/mL (0.0-0.045)
[2021-06-30 19:54] LABS: Anisocytosis 1+; Blood Morphology Comment NOTED (NOT SEEN); Platelet Estimate ADEQ; White Blood Cell Scan OK (OK)
--- NOTE | 2021-06-30 20:25 | ER ---
Nurse's Notes [facility] Name: Oleg Giles Age: 75 yrs Sex: Male : 1945 Arrival Date: 06/30/2021 Time: 18:24 Bed 5 Private MD: Diagnosis: Dyspnea. Anxiety disorder Presentation: 06/30 18:41 Chief complaint: Patient's son or daughter states: ws just d/c from hospital last week iw for Afib, anemia, and fluid around his heart, was told to increase his metoprolol from 25 to 75 mg, today he just wasn't feeling well , felt very anxious and is SOb on exertion. Coronavirus screen: At this time, the client does not indicate any symptoms associated with coronavirus-19. Ebola Screen: Patient negative for fever greater than or equal to 101.5 degrees Fahrenheit, and additional compatible Ebola Virus Disease symptoms Patient denies exposure to infectious person. Patient denies travel to an Ebola-affected area in the 21 days before illness onset. No symptoms or risks identified at this time. Initial Sepsis Screen: Does the patient meet any 2 criteria? No. Patient's initial sepsis screen is negative. Does the patient have a suspected source of infection? No. Patient's initial sepsis screen is negative. Risk Assessment: Do you want to hurt yourself or someone else? Patient reports no desire to harm self or others. Onset of symptoms was June 30, 2021. 18:41 Method Of Arrival: Wheelchair iw 18:41 Acuity: ALEXANDREA 3 iw Historical: - Allergies: 18:45 NKA; iw - Home Meds: 18:45 metoprolol tartrate 75 mg oral tab 2 times per day [Active]; aspirin 81 mg Oral tab iw daily [Active]; atorvastatin 20 mg Oral tab 1 tab once daily [Active]; docusate sodium 100 mg Oral cap once daily [Active]; Eliquis 5 mg Oral tab 1 tab 2 times per day [Active]; omeprazole 20 mg oral TbEC daily [Active]; furosemide 40 mg Oral tab 1 tab once daily [Active]; ferrous sulfate 325 mg (65 mg iron) Oral TbEC daily [Active]; - PMHx: 18:45 Arthritis; Atrial fibrillation; Hypertensive disorder; iw - Immunization history:: Adult Immunizations up to date. - Social history:: Smoking status: Patient denies any tobacco usage or history of. Screenin:50 Abuse screen: Denies threats or abuse. Nutritional screening: No deficits noted. tw2 Tuberculosis screening: No symptoms or risk factors identified. Fall Risk Secondary diagnosis (15 points) impaired mobility. Assessment: 19:41 General: Appears in no apparent distress. comfortable, well groomed, Behavior is calm, kc4 cooperative, appropriate for age, Denies fever, feeling ill, chills. Pain: Denies pain. Neuro: No deficits noted. Cardiovascular: No deficits noted. Reports None pt has cp before coming to the ER today. since then pain has resolved Denies diaphoresis, fatigue, lightheadedness, nausea, palpitations, shortness of breath, syncope, vomiting, Heart tones S1 S2 Capillary refill < 3 seconds Clubbing of nail beds is absent Patient's skin is warm and dry. Respiratory: No deficits noted. GI: No deficits noted. No signs and/or symptoms were reported involving the gastrointestinal system. : No deficits noted. No signs and/or symptoms were reported regarding the genitourinary system. EENT: No deficits noted. No signs and/or symptoms were reported regarding the EENT system. Derm: No deficits noted. No signs and/or symptoms reported regarding the dermatologic system. Musculoskeletal: No deficits noted. No signs and/or symptoms reported regarding the musculoskeletal system. Vital Signs: 18:41 BP 129 / 67; Pulse 107; Resp 20 S; Pulse Ox 100% on R/A; iw 19:39 BP 148 / 70; Pulse 84; Resp 18; Temp 98.8(O); Pulse Ox 100% on R/A; Pain 0/10; kc4 20:45 BP 132 / 85; Pulse 90; Resp 20; Temp 98.8(O); Pulse Ox 99% on R/A; Pain 0/10; kc4 21:01 BP 132 / 85; Pulse 82; Resp 18; Temp 98.6(O); Pulse Ox 100% on R/A; Pain 0/10; kc4 ED Course: 18:24 Patient arrived in ED. as 18:31 Bed in low position. Call light in reach. Adult w/ patient. site monitor on. Pulse tw2 ox on. NIBP on. 18:32 Korey Melgar MD is Attending Physician. kdr 18:45 Triage completed. iw 18:51 Arm band placed on. tw2 19:05 Inserted saline lock: 20 gauge in left antecubital area, using aseptic technique. Blood tw2 collected. Missed attempt(s): 20 gauge in right antecubital area. Bleeding controlled, band aid applied, catheter tip intact. 19:13 Attending Physician role handed off by Korey Melgar MD pkl 19:13 Javi Reyes MD is Attending Physician. pkl 19:16 XRAY Chest (1 view) In Process Unspecified. EDMS 19:37 Selam Trejo is Primary Nurse. kc4 21:02 No provider procedures requiring assistance completed. IV discontinued, intact, kc4 bleeding controlled, No redness/swelling at site. Pressure dressing applied. Administered Medications: 20:43 Drug: Tylenol 650 mg Route: PO; kc4 21:05 Follow up: Response: No adverse reaction kc4 20:44 Drug: Ativan (LORazepam) 1 mg {Note: Given to patient to take at home and take at [facility] bedtime. Per MD Reyes .} Route: PO; 21:06 Follow up: Response: Other kc4 Outcome: 20:25 Discharge ordered by . pk 21:02 Discharged to home via wheelchair, with friend. kc4 21:02 Condition: stable 21:02 Discharge instructions given to patient, family, Instructed on discharge instructions, follow up and referral plans. medication usage, Pt was given 1mg of Ativan to take home to be taken before bed. Per MD Reyes. Pt educated on the dosage, the effects of medication and the side effets. Demonstrated understanding of instructions, follow-up care, medications. 21:06 Patient left the ED. kc4 Signatures: Dispatcher [employer] EDSC Javi Reyes MD MD pkl Rittger, Kevin, MD MD kdr Martinez, Amelia as Shanda Trejo, RN RN iw Yola Patterson RN RN tw2 Selam Trejo kc4
--- NOTE | 2021-06-30 20:26 | EDPHYS ---
Physician Documentation [facility] Name: Oleg Giles Age: 75 yrs Sex: Male : 1945 Arrival Date: 06/30/2021 Time: 18:24 Bed 5 Private MD: ED Physician Javi Reyes HPI: 06/30 18:50 This 75 yrs old Male presents to ER via Wheelchair with complaints of afib. kdr 18:50 The patient presents with a history of Generalized weakness. Context: The symptoms kdr occur at rest. Onset: The symptoms/episode began/occurred gradually, at an unknown time. Duration: The patient or guardian reports multiple episodes, that are intermittent, that wax and wane, with no pattern. Modifying factors: The symptoms are aggravated by nothing. The symptoms are alleviated by nothing. Associated signs and symptoms: Pertinent positives: SOB, Generalized weakness and tremor. Severity of symptoms: At their worst the symptoms were mild moderate in the emergency department the symptoms have improved mildly. The patient has experienced similar episodes in the past, chronically, today's symptoms are similar. The patient has been recently seen by a physician: the patient's primary care provider. Patient was brought to the ED by her his daughter who states that he was just discharged from the hospital last week with A. fib and anemia. He is also had some congestive heart failure. He was recently told to increase his metoprolol from 25 mg to self 75 mg. He had Covid about 3 months ago and is never fully recovered from that. Currently he feels tremulous and weak but otherwise is nonfocal with his complaints. Historical: - Allergies: 18:45 NKA; iw - Home Meds: 18:45 metoprolol tartrate 75 mg oral tab 2 times per day [Active]; aspirin 81 mg Oral tab iw daily [Active]; atorvastatin 20 mg Oral tab 1 tab once daily [Active]; docusate sodium 100 mg Oral cap once daily [Active]; Eliquis 5 mg Oral tab 1 tab 2 times per day [Active]; omeprazole 20 mg oral TbEC daily [Active]; furosemide 40 mg Oral tab 1 tab once daily [Active]; ferrous sulfate 325 mg (65 mg iron) Oral TbEC daily [Active]; - PMHx: 18:45 Arthritis; Atrial fibrillation; Hypertensive disorder; iw - Immunization history:: Adult Immunizations up to date. - Social history:: Smoking status: Patient denies any tobacco usage or history of. ROS: 18:50 Constitutional: Negative for fever, chills, and weight loss, Eyes: Negative for injury, kdr pain, redness, and discharge, Neck: Negative for injury, pain, and swelling, Respiratory: Negative for shortness of breath, cough, wheezing, and pleuritic chest pain, Abdomen/GI: Negative for abdominal pain, nausea, vomiting, diarrhea, and constipation, Back: Negative for injury and pain, : Negative for injury, bleeding, discharge, and swelling. 18:50 MS/Extremity: Negative for injury and deformity, Skin: Negative for injury, rash, and discoloration, Psych: Negative for depression, anxiety, suicide ideation, homicidal ideation, and hallucinations, Allergy/Immunology: Negative for hives, rash, and allergies, Endocrine: Negative for neck swelling, polydipsia, polyuria, polyphagia, and marked weight changes, Hematologic/Lymphatic: Negative for swollen nodes, abnormal bleeding, and unusual bruising. 18:50 Cardiovascular: Positive for palpitations, Negative for 18:50 Neuro: Positive for weakness, Negative for Exam: 18:50 Constitutional: This is a well developed, well nourished patient who is awake, alert, kdr and in no acute distress. Head/Face: Normocephalic, atraumatic. Eyes: Pupils equal round and reactive to light, extra-ocular motions intact. Lids and lashes normal. Conjunctiva and sclera are non-icteric and not injected. Cornea within normal limits. Periorbital areas with no swelling, redness, or edema. Neck: Trachea midline, no thyromegaly or masses palpated, and no cervical lymphadenopathy. Supple, full range of motion without nuchal rigidity, or vertebral point tenderness. No Meningismus. Chest/axilla: Normal chest wall appearance and motion. Nontender with no deformity. No lesions are appreciated. Abdomen/GI: Soft, non-tender, with normal bowel sounds. No distension or tympany. No guarding or rebound. No evidence of tenderness throughout. Back: No spinal tenderness. No costovertebral tenderness. Full range of motion. Skin: Warm, dry with normal turgor. Normal color with no rashes, no lesions, and no evidence of cellulitis. MS/ Extremity: Pulses equal, no cyanosis. Neurovascular intact. Full, normal range of motion. Neuro: Awake and alert, GCS 15, oriented to person, place, time, and situation. Cranial nerves II-XII grossly intact. Motor strength 5/5 in all extremities. Sensory grossly intact. Cerebellar exam normal. Normal gait. Psych: Awake, alert, with orientation to person, place and time. Behavior, mood, and affect are within normal limits. 18:50 Cardiovascular: Rate: normal, Rhythm: irregularly irregular, Pulses: no pulse deficits are appreciated, Edema: is not appreciated. 18:50 Respiratory: the patient does not display signs of respiratory distress, Respirations: normal, Breath sounds: are clear throughout. Vital Signs: 18:41 BP 129 / 67; Pulse 107; Resp 20 S; Pulse Ox 100% on R/A; iw 19:39 BP 148 / 70; Pulse 84; Resp 18; Temp 98.8(O); Pulse Ox 100% on R/A; Pain 0/10; kc4 20:45 BP 132 / 85; Pulse 90; Resp 20; Temp 98.8(O); Pulse Ox 99% on R/A; Pain 0/10; kc4 21:01 BP 132 / 85; Pulse 82; Resp 18; Temp 98.6(O); Pulse Ox 100% on R/A; Pain 0/10; kc4 MDM: 18:50 Data reviewed: vital signs, nurses notes, lab test result(s), EKG, radiologic studies. kdr Counseling: I had a detailed discussion with the patient and/or guardian regarding: the historical points, exam findings, and any diagnostic results supporting the discharge/admit diagnosis, lab results, radiology results. 19:13 Patient medically screened. pkl 20:21 ED course: Discussed lab, EKG and CXR with patient and daughter. Advised to follow up pkl with PCP in 2 to 3 days. To return if necessary. Patient and daughter understood instructions. 06/30 18:48 Order name: Basic Metabolic Panel; Complete Time: 20:17 kdr 06/30 18:48 Order name: CBC with Diff; Complete Time: 20:17 kdr 06/30 18:48 Order name: LFT's; Complete Time: 20:17 kdr 06/30 18:48 Order name: Magnesium; Complete Time: 20:17 kdr 06/30 18:48 Order name: NT PRO-BNP; Complete Time: 20:17 kdr 06/30 18:48 Order name: PT-INR; Complete Time: 20:17 kdr 06/30 18:48 Order name: Troponin (emerg Dept Use Only); Complete Time: 20:17 kdr 06/30 18:48 Order name: XRAY Chest (1 view); Complete Time: 20:17 kdr 06/30 18:48 Order name: EKG; Complete Time: 18:49 kdr 06/30 18:48 Order name: Cardiac monitoring; Complete Time: 19:12 kdr 06/30 18:48 Order name: EKG - Nurse/Tech; Complete Time: 19:12 kdr 06/30 19:54 Order name: CBC Smear Scan; Complete Time: 20:17 EDPR 06/30 18:48 Order name: IV Saline Lock; Complete Time: 19:12 kdr 06/30 18:48 Order name: Labs collected and sent; Complete Time: 19:12 [facility] 06/30 18:48 Order name: O2 Per Protocol; Complete Time: 19: [facility] 06/30 18:48 Order name: O2 Sat Monitoring; Complete Time: 19:12 kdr Administered Medications: 20:43 Drug: Tylenol 650 mg Route: PO; kc4 21:05 Follow up: Response: No adverse reaction 4 20:44 Drug: Ativan (LORazepam) 1 mg {Note: Given to patient to take at home and take at 4 bedtime. Per MD Reyes .} Route: PO; 21:06 Follow up: Response: Other kc4 Disposition Summary: 06/30/21 20:25 Discharge Ordered Location: Home pkl Problem: new pkl Symptoms: have improved pkl Condition: Stable pkl Diagnosis - Dyspnea. Anxiety disorder pkl Followup: pkl - With: Private Physician - When: 2 - 3 days - Reason: Re-evaluation by your physician Forms: - Medication Reconciliation Form pkl - Thank You Letter pkl - Antibiotic Education pkl - Prescription Opioid Use pkl Signatures: Dispatcher [employer] Javi Moctezuma MD MD pkl Korey Melgar MD MD kdr Shanda Trejo, RN RN Selam Marsh kc4
--- NOTE | 2021-06-30 20:35 | EKG ---
Test Date: 2021-06-30 Test Time: 18:56:20 [employer]sembling [employer]: TARYN MEASUREMENT RESULTS: Intervals: Rate: 89 [place]: QRSD: 154 QT: 432 QTc: 525 [place]: P: [place]: QRS: -13 T: 81 INTERPRETIVE STATEMENTS: Atrial fibrillation Left bundle branch block Abnormal ECG Compared to ECG 06/26/2021 13:04:58 Left bundle-branch block now present T-wave abnormality no longer present Possible ischemia no longer present Electronically Signed On 06-30-21 20:34:53 DIRECTOR [employer]ERIN[employer] by Jimmy Westbrook
[2021-06-30] MEDS ORDERED: ACETAMINOPHEN 325 MG TABLET ONE (20:38)
[2021-06-30] MEDS ORDERED: LORAZEPAM 1 MG TABLET ONE (20:39)
[2021-06-30 21:28] VITALS: BP 132/85
[2021-06-30 21:30] VITALS: TEMP 98.6; O2SAT 100
--- OUTSIDE RECORDS SUMMARY | 2021-07-01 23:14 | XMS REPORT | Continuity of Care Document ---
:1945 Author Organization [facility] t Address [address] [place] [address] [address]. [address] [place] [address] Care Team Providers Name Role Phone Kai Montez MD Primary Care Physician [phone] ELLA Attending Clinician Unavailable DANIEL Attending Clinician Unavailable RUSS QUINTANILLA Attending Clinician Unavailable VERONICA CODY Attending Clinician Unavailable GINGER SCOTT Attending Clinician Unavailable Herb Nath MD Attending Clinician Rocio ELLIS Attending Clinician Doctor Unassigned, Name Attending Clinician Unavailable ELLA Admitting Clinician Unavailable RUSS QUINTANILLA Admitting Clinician Unavailable PARIS Admitting Clinician Unavailable SARBJIT Admitting Clinician Unavailable Herb Nath MD Admitting Clinician Payers Payer Name Policy Type Policy Number Effective Date Expiration Date S ource TOTALCARE SNP [id number] 2020 MEDICARE HMO-CIGNA 00:00:00 CIG[employer] [id number] 2020 HMO 00:00:00 Problems Condition Condition Condition Status Onset Resolution Last Treating Co mments Source Name Details Category Date Date Treatment Clinician Date No known No known Disease Unive rs active active ity of problems problems Formerly [facility] Allergies, Adverse Reactions, Alerts Allergy Allergy Status Severity Reaction(s) Onset Inactive Treating Comm ents Source Name Type Date Date Clinician Aspirin Propensi Active 2020-08 [facility] ty to 08-22 [place] adverse 00:00: of reaction 00 Medicin s to e drug APIXABAN Allergy Active 2020-[address] [facility] ASPIRIN Allergy Active [facility] NO KNOWN Allergy Active [facility] Social History Social Habit Start Date Stop Date Quantity Comments Source Tobacco use and 2021-06-22 2021-06-22 Never used [facility] llege of exposure 00:00:00 00:00:00 Medicine Sex [birth year] [facility] llege of 00:00:00 00:00:00 Medicine Smoking Status Start Date Stop Date Source Never smoker [facility] o f Medicine Former smoker 2019-04-22 00:00:00 2019-04-22 00:00:00 [facility] Medications Ordered Filled Start Stop Current Ordering Indication Dosage Frequency Signature Comments Components Source Medication Medication Date Date Medication? Clinician (SIG) Name Name atorjaetamary 2020-08 Yes 20mg Take 20 mg [facility] n (LIPITOR) 1-04 by mouth. Col lege 20 MG 08:27: of tablet 20 Medicin e omeprazole 2020-08 Yes 40mg Take 1 [facility] (PRILOSEC) 1-04 capsule by Col lege 40 MG 00:00: mouth two of capsule 00 times Medicin daily. e benzonatate 2020-08 Yes [facility] (TESSALON) 0-25 College 100 mg 00:00: of capsule 00 Medicin e docusate 2020-08 Yes [facility] sodium 0-17 College (COLACE) 00:00: of 100 MG 00 Medicin capsule e metoprolol 2020-08 Yes [facility] (LOPRESSOR) 0-17 College 25 MG 00:00: of tablet 00 Medicin e promethazin 2020-08 Yes Giovanny e 0-11 College (PHENERGAN) 00:00: of 12.5 MG 00 Medicin tablet e Apixaban 5 2020-08- Yes 5mg Take 5 mg [facility]yl[facility] MG TABS 008-18 by mouth. Colleg e 00:00: 05:59 of [...] by mouth ity of tablet 14:02: at [place] 00 bedtime. Medical Branch clopidogrel Yes 75mg Take 75 mg Univers 75 mg 9-04 by mouth ity of tablet 14:02: daily. Medical Branch valsartan Yes 320mg Take 320 Uni vers 320 mg 9-04 mg by ity of tablet 14:02: mouth [place] 00 daily. Medical Branch atorvastati Yes 20mg Take 20 mg Univers n 20 mg 9-04 by mouth ity of tablet 14:02: at [place] 00 bedtime. Medical Branch clopidogrel Yes 75mg Take 75 mg Univers 75 mg 9-04 by mouth ity of tablet 14:02: daily. Medical Branch valsartan Yes 320mg Take 320 Uni vers 320 mg 9-04 mg by ity of tablet 14:02: mouth [place] 00 daily. Medical Branch atorvastati Yes 20mg Take 20 mg Univers n 20 mg 9-04 by mouth ity of tablet 14:02: at [place] 00 bedtime. Medical Branch clopidogrel Yes 75mg [...] exas solution 00 at 0802, Medical Until [place] Discontinu ed, Routine, Intra-op simethicone Yes PRN, Univer s (GAS 04-22 Starting ity of RELIEF) 40 13:01: Sat04/22/19 [place] mg/0.6 mL 00 at 0801, Medica l drops Until [place] Discontinu ed, Routine, Intra-op propofol 2019- No ONCE INTRA Un amrit injection 04-22 PROCEDURE, ity of 13:00: 13:14 Starting [place] 00 :47 Sat04/22/19 Medical at 0800, Branch [...] cm Systolic blood 2021-06-22 13:19:00 140 mm[Hg] [facility] pressure Medicine Diastolic blood 2021-06-22 13:19:00 82 mm[Hg] [facility] Medicine Heart rate 2021-06-22 13:19:00 86 /min [facility] Body temperature 2021-06-22 13:19:00 36.83 Lalita [facility] Body height 2021-06-22 13:19:00 167.6 cm [facility] Body weight 2021-06-22 13:19:00 84.732 kg [facility] BMI 2021-06-22 13:19:00 30.15 kg/m2 [facility] WEIGHT 2021-05-23 22:20:00 83.643 kg HEIGHT [...] 13:42:00 140 mm[Hg] Univer sity of pressure [place] [facility] Diastolic blood 2019-04-22 13:42:00 73 mm[Hg] Unive rsity of pressure [place] [facility] Heart rate 2019-04-22 13:42:00 56 /min [facility] [place] [facility] Respiratory rate 2019-04-22 13:42:00 16 /min Univ ersity [facility] [place] [facility] Oxygen saturation in 2019-04-22 13:42:00 99 /min University of Arterial blood by [facility] Pulse oximetry Branch Body temperature 2019-04-22 13:27:00 36.33 Lalita [facility] [place] [facility] Body height 2019-04-17 16:00:00 162.6 cm [facility] [place] [facility] Body weight 2019-04-17 16:00:00 91.173 kg [facility] [place] [facility] BMI 2019-04-17 16:00:00 34.50 kg/m2 [facility] [place] [facility] Systolic blood 2019-04-22 13:42:00 140 mm[Hg] Univer sity of pressure [place] [facility] Diastolic blood 2019-04-22 13:42:00 73 mm[Hg] Unive rsity of pressure [place] [facility] Heart rate 2019-04-22 13:42:00 56 /min [facility] [place] [facility] Respiratory rate 2019-04-22 13:42:00 16 /min Univ ersity [facility] [place] [facility] Oxygen saturation in 2019-04-22 13:42:00 99 /min University of Arterial blood by [facility] Pulse oximetry Branch Body temperature 2019-04-22 13:27:00 36.33 Lalita [facility] [place] [facility] Body height 2019-04-17 16:00:00 162.6 cm [facility] [place] [facility] Body weight 2019-04-17 16:00:00 91.173 kg [facility] BMI 2019-04-17 16:00:00 34.50 kg/m2 [facility] Procedures Procedure Date / Time Performed Performing Clinician Luz mena EGD (ENDO) 2019-04-22 12:55:59 [facility] [place] [facility] 2019-04-22 05:01:00 Doctor Unassigned, No Univ [facility] Plan of Care Planned Activity Planned Date Details Comments Source Future Scheduled 2021-06-22 CBC W/AUTO DIFF Ordered: [facility] [place] [employer] [facility] Test 09:11:41 WITH PLATELETS 06/22/2021 of Medicine [code = 30108-4] Future Scheduled 2021-06-22 FERRITIN [code = Ordered: [facility] Wisr Test 09:11:41 82957-4] 06/22/2021 of Medicine Future Scheduled 2021-06-22 IRON+TIBC+%SAT Ordered: [facility] CENTERSONIC llege Test 09:11:41 [code = NOCPT] 06/22/2021 of Medicine Future Scheduled 2021-06-22 TETANUS SHOT [facility] [place] ege Test 08:19:01 (ADULT) [code = of Medicine TETANUS SHOT (ADULT)] Future Scheduled 2021-06-22 Hepatitis C [facility] [place] [facility] Test 08:19:01 screening of Medicine (procedure) [code = 697260906] Future Scheduled 2021-06-22 ZOSTER VACCINE (1 [facility] Wisr Test 08:19:01 of 2) [code = of Medicine ZOSTER VACCINE (1 of 2)] Future Scheduled 2021-06-22 FALL SCREEN [code [facility] Wisr Test 08:19:01 = FALL SCREEN] of Medicine Future Scheduled 2021-06-22 PNEUMOVAX >=65 [facility] Co llege Test 08:19:01 (PPSV23) [code = of Medicine PNEUMOVAX >=65 (PPSV23)] Future Scheduled 2021-06-22 MEDICARE IPPE [facility] Col lege Test 08:19:01 (WELCOME TO of Medicine MEDICARE) [code = MEDICARE IPPE (WELCOME TO MEDICARE)] Future Scheduled 2021-06-22 FLU VACCINE > 6 [facility] C ollege Test 08:19:01 MONTHS [code = FLU of Medici ne VACCINE > 6 MONTHS] Encounters Start End Encounter Admission Attending Care Care Encounter Source Date/Time Date/Time Type Type Clinicians Facility Department ID 2021-05-28 Inpatient ER FRACISCO JARAMILLO Gastro [id number] [facility] 12:00:47 RYLAN 2021-06-22 2021-06-22 Office DANIEL REX [id number] [facility] 08:13:37 11:39:39 Visit RICK AMBULATOR 350.1.13.21 College Y 0.2.7.2.686 of [id number] Medi eddie 325 e 2021-05-23 2021-05-26 Inpatient ER DWIGHT [facility] Emergency [id number] [facility] 15:12:00 15:03:00 MALKA 2021-05-23 2021-05-23 Outpatient [facility] [id number] [facility] 00:00:00 23:59:00 Colleg e of Medicin e 2021-05-20 2021-05-20 Emergency ER [facility] Emergency [id number] [facility] 01:57:00 01:57:00 2021-05-15 2021-05-15 Outpatient [facility] [id number] [facility] 00:00:00 23:59:00 Colleg e of Medicin e 2021-05-15 2021-05-15 Emergency ER [facility] Emergency [id number] [facility] 12:00:00 12:00:00 2021-04-29 2021-04-29 Outpatient [facility] [id number] [facility] 00:00:00 23:59:00 Colleg e of Medicin e 2021-04-28 2021-04-28 Outpatient [facility] [id number] [facility] 12:32:00 23:59:00 Colleg e of Medicin e 2019-04-22 2019-04-22 [facility] [id number] [facility] 06:15:00 08:56:00 Encounter e, Katy Loyola 350.1.13.10 [place] [id number] [place] [id number] Branch 2019-04-22 2019-04-22 [facility] [id number] 06:15:00 08:56:00 Encounter Katy mena 350.1.13.10 [place] 4.[address].7.2.[id number]71 2019-04-22 2019-04-22 Anesthesia [facility] [id number] [facility] 07:54:00 08:13:00 Jaden Loyola 350.1.13.10 i ty [place] [id number] [facility] 020 Branch 2019-04-22 2019-04-22 Anesthesia [facility] [id number] 07:54:00 08:13:00 Jaden Loyola 350.1.13.10 [place] 4.2.7.2.[id number] 020 2019-04-22 2019-04-22 Orders Doctor MURILLO [id number] Univers 00:00:00 00:00:00 Only Unassigned, ANA MARIA 350.1.13.10 ity of [facility] 4.2.7.2.686 [place] as [id number] [facility] 009 Branch 2019-04-22 2019-04-22 Orders Doctor LIDIA [id number] 00:00:00 00:00:00 Only Unassigned, ANA MARIA 350.1.13.10 [facility] 4.2.7.2.686 [id number] Results Test Description Test Time Test Comments Results Result Comments Source HEMOGLOBIN AND HEMATOCRIT 2021-05-26 05:07:16 Test Item Value Reference Range Interpretation Comme nts HEMOGLOBIN (BEAKER) (test code = 410) 7.9 GM/DL 13.7-17.5 L HEMATOCRIT (BEAKER) (test code = 411) 26.4 % 40.1-51.0 L Sexual Assault Response Coordinator ID - [id number] AND [id number] 18:44:57 Test Item Value Reference Range Interpretation Comments HEMOGLOBIN (BEAKER) (test code = 8.7 GM/DL 13.7-17.5 L 410) HEMATOCRIT (BEAKER) (test code = 29.7 % 40.1-51.0 L 411) Sexual Assault Response Coordinator ID - [id number] AND [id number] 11:29:37 Test Item Value Reference Range Interpretation Comments HEMOGLOBIN (BEAKER) (test code = 8.3 GM/DL 13.7-17.5 L 410) HEMATOCRIT (BEAKER) (test code = 28.5 % 40.1-51.0 L 411) Sexual Assault Response Coordinator ID - [id number] AND [id number] 04:51:37 Test Item Value Reference Range Interpretation Comments HEMOGLOBIN (BEAKER) (test code = 7.9 GM/DL 13.7-17.5 L 410) HEMATOCRIT (BEAKER) (test code = 26.9 % 40.1-51.0 L 411) Sexual Assault Response Coordinator ID - [id number] AND [id number] 16:42:26 Test Item Value Reference Range Interpretation Comments HEMOGLOBIN (BEAKER) (test code = 8.6 GM/DL 13.7-17.5 L 410) HEMATOCRIT (BEAKER) (test code = 29.4 % 40.1-51.0 L 411) Sexual Assault Response Coordinator ID - [id number] METABOLIC [id number] 09:04:40 Test Item Value Reference Range Interpretation [...] S NOT APPLICABLE FOR DIALYSIS PATIEN TS. Sexual Assault Response Coordinator ID - ROSIANGHEMOGLOBIN AND [id number] 08:41:52 Test Item Value Reference Range Interpretation Comments HEMOGLOBIN (BEAKER) (test code = 7.6 GM/DL 13.7-17.5 L 410) HEMATOCRIT (BEAKER) (test code = 26.5 % 40.1-51.0 L 411) Sexual Assault Response Coordinator ID - [id number]-COV2/RT-PCR ([facility])2021-05-23 19:59:55 Test Item Value Reference Range Interpretation Comments SARS-COV2/RT-PCR Negative Negative The SARS-Co V-2 target (test code = nucleic acids a re not 3846365) detected in thi s specimen. Negative result [...] revoked sooner. Fact Sheet for Healthcare Providers: https://www.[employer]/Documents/Xpert%20Xpress%20SARS%20CoV-2/Fact%20Sheets/934-1842%20SARS-COV -2%20HEALTHCARE%20PROVIDERS%20FACT%20SHEET.pdf Fact Sheet for Healthcare Patients: https://www.cdream [employer]/Documents/Xpert %20Xpress%20SARS%20CoV-2/Fact%20Sheets/966-8301%34HENF-EEZ-7%20PATIENT%20FACT%20 SHEET.pdfCOMPREHENSIVE METABOLIC [id number] 17:17:21 Test Item Value Reference Range Interpretation [...] S NOT APPLICABLE FOR DIALYSIS PATIEN TS. Sexual Assault Response Coordinator ID - LUDA [id number] 17:17:21 Test Item Value Reference Range Interpretation Comments LIPASE (BEAKER) (test code = 749) 31 U/L 8-78 Sexual Assault Response Coordinator ID - LUDA [id number] 16:55:15 Test Item Value Reference Range Interpretation [...] (BEAKER) (test code = 2801) BASIC METABOLIC [id number] 04:38:30 Test Item Value Reference Range Interpretation [...] S NOT APPLICABLE FOR DIALYSIS PATIEN TS. Sexual Assault Response Coordinator ID - DBCBC W/PLT COUNT & AUTO [id number] 04:21:40 Test Item Value Reference Range Interpretation [...] (BEAKER) (test code = 2801) BASIC METABOLIC [id number] 07:03:04 Test Item Value Reference Range Interpretation [...] S NOT APPLICABLE FOR DIALYSIS PATIEN TS. Sexual Assault Response Coordinator ID - PIAYA LCBC (HEMOGRAM ONLY)2021-05-17 04:38:47 [...] (BEAKER) (test code = 413) HEMOGLOBIN AND [id number] 20:18:40 Test Item Value Reference Range Interpretation Comments HEMOGLOBIN (BEAKER) (test code = 7.7 GM/DL 13.7-17.5 L 410) HEMATOCRIT (BEAKER) (test code = 25.7 % 40.1-51.0 L 411) Sexual Assault Response Coordinator ID - [id number] METABOLIC [id number] 06:32:43 Test Item Value Reference Range Interpretation [...] S NOT APPLICABLE FOR DIALYSIS PATIEN TS. Sexual Assault Response Coordinator ID - MARZENA MCBC W/PLT COUNT & AUTO [id number] 06:09:12 Test Item Value Reference Range Interpretation [...] (BEAKER) (test code = 2801) HEMOGLOBIN AND [id number] 00:13:44 Test Item Value Reference Range Interpretation Comments HEMOGLOBIN (BEAKER) (test code = 8.0 GM/DL 13.7-17.5 L 410) HEMATOCRIT (BEAKER) (test code = 28.1 % 40.1-51.0 L 411) Sexual Assault Response Coordinator ID - [id number]-COV2/RT-PCR ([facility])2021-05-15 18:07:21 Test Item Value Reference Range Interpretation Comments SARS-COV2/RT-PCR Negative Negative The SARS-Co V-2 target (test code = nucleic acids a re not 7142110) detected in thi s specimen. Negative result [...] revoked sooner. Fact Sheet for Healthcare Providers: https://www.[employer]/Documents/Xpert%20Xpress%20SARS%20CoV-2/Fact%20Sheets/302-6552%20SARS-COV -2%20HEALTHCARE%20PROVIDERS%20FACT%20SHEET.pdf Fact Sheet for Healthcare Patients: https://www.[employer]ream [employer]/Documents/Xpert %20Xpress%20SARS%20CoV-2/Fact%20Sheets/302-0541%04WKME-XPR-3%20PATIENT%20FACT%20 SHEET.pdfHIGH SENSITIVITY TROPONIN [id number] 15:44:19 Test Item Value Reference Range Interpretation Comments HIGH SENSITIVITY 6 pg/ml See_Comment [Automated message] TROPONIN I (test code = The system which 8809246) generated this result transmitted ref erence range: <=35. Th e reference range was not used to interpr et this result as normal/abnormal . Sexual Assault Response Coordinator ID - DBThe ACCOUNT ADMINISTRATOR STAT High Sensitivity Troponin-I results should be used in conjunctionwith other diagnostic information such as ECG, clinical observations and information, and patient symptoms to aid in the diagnosis of NC.[id number] 15:36:53 Test Item Value Reference Range Interpretation Comments MAGNESIUM (BEAKER) (test code = 2.1 mg/dL 1.6-2.6 627) Sexual Assault Response Coordinator ID - [id number] 15:36:53 Test Item Value Reference Range Interpretation Comments PHOSPHORUS (BEAKER) (test code = 3.3 mg/dL 2.3-4.7 604) Sexual Assault Response Coordinator ID - DBCOMPREHENSIVE METABOLIC [id number] 15:36:52 Test Item Value Reference Range Interpretation [...] S NOT APPLICABLE FOR DIALYSIS PATIEN TS. Sexual Assault Response Coordinator ID - DBCBC W/PLT COUNT & AUTO [id number] 15:12:30 Test Item Value Reference Range Interpretation [...] = 2801) RAD, CHEST, 1 VIEW, NON [id number] 13:55:00Reason for exam:->MELENAReason for exam:->GENERAL ILLNESSReason for exam:->GENERALIZED WEAKNESS, NOT ASSOCIATED WITH EXTREMITIESShould this be performed at the bedside?->Yes [facility] 1945 Sex: MFINAL REPORT INDICATION: MELENAGENERAL ILLNESSGENERALIZED WEAKNESS, NOT ASSOCIATED WITH EXTREMITIES COMPARISON: 05/01/2021 TECHNIQUE: Single frontal view of the chest. FINDINGS: Lungs and pleura: Clear lungs. No effusion.Heart and mediastinum: Normal heart size. Unremarkable mediastinal contours.Osseous structures: No acute abnormality.Other: None. IMPRESSION: No acute intrathoracic abnormality. Signed: Gaby Scott MDReport Verified Date/Time: 05/15/2021 13:55:04 Reading Location: [facility] Radiology Reading Room [id number] 07:19:33 Test Item Value Reference Range Interpretation Comments MAGNESIUM (BEAKER) (test code = 2.4 mg/dL 1.6-2.6 627) Sexual Assault Response Coordinator ID - PIAYA LBASIC METABOLIC [id number] 07:19:32 Test Item Value Reference Range Interpretation [...] S NOT APPLICABLE FOR DIALYSIS PATIEN TS. Sexual Assault Response Coordinator ID - PIAYA LCBC W/PLT COUNT & AUTO [id number] 06:34:22 Test Item Value Reference Range Interpretation [...] (test code = 2801) UREA NITROGEN, RANDOM [id number] 17:46:02 Test Item Value Reference Range Interpretation Comments UREA NITROGEN URINE (BEAKER) (test 404 mg/dL code = 538) Reference Range: No NormalsOperator ID - BSSODIUM, RANDOM [id number] 17:46:01 Test Item Value Reference Range Interpretation Comments SODIUM URINE (BEAKER) (test code = 101 meq/L 243) Reference Range: No NormalsOperator ID - BSCREATININE, RANDOM [id number] 17:46:00 Test Item Value Reference Range Interpretation Comments CREATININE URINE (BEAKER) (test 61.7 mg/dL code = 375) Reference Range: No NormalsOperator ID - BSURINALYSIS WITH MICROSCOPIC IF [id number] 16:41:11 Test Item Value Reference Range Interpretation [...] = 463) SOURCE(BEAKER) (test code = 2795) Sexual Assault Response Coordinator ID - [auto]BLOOD [id number] 11:01:01 Test Item Value Reference Range Interpretation Comments CULTURE (BEAKER) (test No growth in 5 days code = 1095) BLOOD [id number] 11:01:01 Test Item Value Reference Range Interpretation Comments CULTURE (BEAKER) (test No growth in 5 days code = 1095) The specimen volume collected for this blood culture was below the optimum (10 mL per bottle or 20 mL total). Use of lower volumes may adversely affect recovery and/or detection times of some organisms.[id number] 05:38:27 Test Item Value Reference Range Interpretation Comments MAGNESIUM (BEAKER) (test code = 2.3 mg/dL 1.6-2.6 627) Sexual Assault Response Coordinator ID - PIAYA LBASIC METABOLIC [id number] 05:38:26 Test Item Value Reference Range Interpretation [...] S NOT APPLICABLE FOR DIALYSIS PATIEN TS. Sexual Assault Response Coordinator ID - PIAYA LPROTHROMBIN [id number] 05:23:25 Test Item Value Reference Range Interpretation Comments PROTIME (BEAKER) 16.9 seconds 11.9-14.2 H (test code = 759) INR (BEAKER) (test 1.39 See_Comment [Automat ed message] code = 370) The system [employer] generated this result transmitted ref erence range: [...] (BEAKER) (test code = 2801) COMPREHENSIVE METABOLIC [id number] 16:17:38 Test Item Value Reference Range Interpretation [...] S NOT APPLICABLE FOR DIALYSIS PATIEN TS. Sexual Assault Response Coordinator ID - DBSARS-COV2/RT-PCR ([facility])2021-05-08 12:32:16 Test Item Value Reference Range Interpretation Comments SARS-COV2/RT-PCR (test Negative Not Detected, Negative, code = 6112844) See external report for linked test SARS-COV-2 PERFORMING LAB [facility] (test code = 6943794) Negative result for this test determines that [...] 564(g) of the Act.Fact Sheet for Healthcare Providers:https://www.[employer]/sites/default/files/product/documents/Fact_Shee u_FK_Zfzpnhuuu_Iuqf_LOLD-CvN-3.pdfFact Sheet for Healthcare Patients:https://www.[employer]/sites/default/files/product/ documents/Hebb_Akcyw_Pddiovim_Yugw_TBXT-LvI-3.pdfPerforming Laboratory:[place] [address] [address] [place], [place] [address]SLZ (HEMOGRAM ONLY) 2021-05-08 06:41:47 Test Item Value [...] code = 413) [facility]AGING, MULTI, PHARM, [id number] 13:41:00Unlisted Reason for Exam - Click Yes and Enter Reason Below->No [facility] : 1945 Sex: MFINAL REPORT PROCEDURE: Rest/Stress MYOCARDIAL PERFUSION SPECT with regadenoson\\XA9\\ CPT CODE: 80710 INDICATION: Chest pain PROTOCOL: 10.6 mCi of [...] (BEAKER) (test code = 413) BASIC METABOLIC [id number] 06:10:10 Test Item Value Reference Range Interpretation [...] S NOT APPLICABLE FOR DIALYSIS PATIEN TS. Sexual Assault Response Coordinator ID - SHANE GCBC (HEMOGRAM ONLY)2021-05-06 05:35:30 [...] 0-0 H (BEAKER) (test code = 413) [id number] 17:04:33 Test Item Value Reference Range Interpretation Comments PARTIAL THROMBOPLASTIN TIME 75.5 seconds 22.5-36.0 H (BEAKER) (test code = 760) [id number] 08:48:29 Test Item Value Reference Range Interpretation Comments PARTIAL THROMBOPLASTIN TIME 39.1 seconds 22.5-36.0 H (BEAKER) (test code = 760) [id number] 07:02:01 Test Item Value Reference Range Interpretation [...] (BEAKER) (test code = 413) BASIC METABOLIC [id number] 06:36:45 Test Item Value Reference Range Interpretation [...] S NOT APPLICABLE FOR DIALYSIS PATIEN TS. Sexual Assault Response Coordinator ID - SHANE [id number] 22:11:03 Test Item Value Reference Range Interpretation Comments PARTIAL THROMBOPLASTIN TIME 88.2 seconds 22.5-36.0 H (BEAKER) (test code = 760) PERIPHERAL BLOOD SMEAR - PATHOLOGIST [id number] 18:22:51 Test Item Value Reference Range Interpretation Comments PERIPHERAL SMR Microcytic hypochromic REVIEW (BEAKER) anemia with marked (test code = 2000) anisopoikilocytosis and polychromasia, consistent with history of LEESA. Leukocytosis with predominantly mature granulocytes. No blasts seen. Adequate platelets with unremarkable morphology. [id number] Andreina Schmidt, 112 (BEAKER) (test M.D code [...] = 1351) MANUAL NRBC PER 100 CELLS 1 /100 WBC 0-0 H (BEAKER) (test code = 1353) WBC MORPHOLOGY (BEAKER) (test Normal code = 487) PLT MORPHOLOGY (BEAKER) (test Normal code = 486) SCHISTOCYTES (BEAKER) (test code 1+ few = 765) ELLIPTOCYTES (BEAKER) (test code 2+ moderate = 962) OVALOCYTES (BEAKER) (test code = 2+ moderate 477) POIKILOCYTES (BEAKER) (test code 2+ moderate = 966) [id number] 12:13:05 Test Item Value Reference Range Interpretation Comments PARTIAL THROMBOPLASTIN TIME 55.6 seconds 22.5-36.0 H (BEAKER) (test code = 760) TISSUE [id number] 11:53:42Surgical Pathology Report Case: [id number] Authorizing Provider: Yolanda yLle MD Collected: 05/03/2021 10:38 AM Ordering Location: [address] Received: 05/03/2021 02:25 PM Service Pathologist: Ciro Diamond MD Specimen: Polyp, Colon - Right/Ascending, x3 PART A RIGHT ASCENDING COLON POLYPX3, POLYPECTOMY:TUBULAR ADENOMA Signing Pathologist Direct Phone Line: [phone] signed by Ciro Diamond MD on 05/04/2021 at 11:53 [id number] colonReceived in formalin labeled the patient's name, accession number and "ascending colon polyp" are multiple chavez soft tissue fragments measuring up to 0.5 cm in greatest dimension which are filtered and submitted in toto in A1.URSULA Martell, HT (ASCP)performedBaylor St. [facility], Department of Pathology, [address] [place] [address], [facility], Department of [facility]ology, [address] [place] [address], [facility], Department of Pathology, [address] [place] [address], [id number] 11:13:03 Test Item Value Reference Range Interpretation Comments PARTIAL THROMBOPLASTIN TIME > seconds 22.5-36.0 HH (BEAKER) (test code = 760) URINALYSIS [id number] 10:30:34 Test Item Value Reference Range Interpretation Comments RBC UA (BEAKER) (test code = 519) 3 /HPF WBC UA (BEAKER) (test code = 520) 2 /HPF BACTERIA (BEAKER) (test code = None Seen 517) MUCUS (BEAKER) (test code = 1574) Moderate CRYSTALS, URINE (BEAKER) (test None Seen code = 1521) AMORPHOUS CRYSTALS (BEAKER) (test Occasional code = 1584) Sexual Assault Response Coordinator ID - techURINALYSIS WITH MICROSCOPIC IF [id number] 10:23:22 Test Item Value Reference Range Interpretation [...] = 463) SOURCE(BEAKER) (test code = 2795) Sexual Assault Response Coordinator ID - [auto]BASIC METABOLIC [id number] 06:55:55 Test Item Value Reference Range Interpretation [...] S NOT APPLICABLE FOR DIALYSIS PATIEN TS. Sexual Assault Response Coordinator ID - SHANE GCBC (HEMOGRAM ONLY)2021-05-04 06:35:01 [...] 0-0 (BEAKER) (test code = 413) BLOOD [id number] 18:01:00 Test Item Value Reference Range Interpretation Comments CULTURE (BEAKER) (test No growth in 5 days code = 1095) BLOOD [id number] 18:00:59 Test Item Value Reference Range Interpretation Comments CULTURE (BEAKER) (test No growth in 5 days code = 1095) TISSUE [id number] 17:23:09Surgical Pathology Report Case: [id number] Authorizing Provider: Yolanda Lyle MD Collected: 05/02/2021 03:08 PM Ordering Location: [address] Received: 05/03/2021 09:22 AM Service Pathologist: [...] ORINVASIVE CARCINOMA. Signing Pathologist Direct Phone Line: [phone] signed by Ciro Diamond MD on 05/03/2021 at 5:23 [id number], [id number] iron deficiency anemiaA. Duodenum tissue, rule out [...] evaluated Immunohistochemistry technical testing was performed at [facility], Pathology Laboratory where it was developed and [...] qualified to perform high complexity clinical laboratory testing.[facility], Department of Pathology, [address] [place] [address], [facility], Department of Pathology, [address] [place] [address], [facility], Department of Pathology, [address] [place] [address], FHKBK METABOLIC PANEL 2021-05-03 06:21:43 Test Item Value [...] S NOT APPLICABLE FOR DIALYSIS PATIEN TS. Sexual Assault Response Coordinator ID - MARZENA MTSH/FREE T4 IF [id number] 05:55:30 Test Item Value Reference Range Interpretation Comments THYROID STIMULATING HORMONE 0.869 uIU/mL 0.350-4.940 (BEAKER) (test code = 772) Sexual Assault Response Coordinator ID - MARZENA MB-TYPE NATRIURETIC FACTOR (BNP)2021-05-03 05:32:14 Test Item Value Reference Range Interpretation Comments B-TYPE NATRIURETIC PEPTIDE (BEAKER) 452 pg/mL 0-100 H (test code = 700) Sexual Assault Response Coordinator ID - MARZENA MCBC (HEMOGRAM ONLY)2021-05-03 05:22:14 [...] CONCENTRATION Adequate (CELLAVISION)(BEAKER) (test code = 3438) Sexual Assault Response Coordinator ID - Luca Perry comments: Slide comments:CBC W/PLT COUNT & AUTO [id number] 11:59:17 Test Item Value Reference Range Interpretation [...] (BEAKER) (test code = 413) BASIC METABOLIC [id number] 09:20:42 Test Item Value Reference Range Interpretation [...] S NOT APPLICABLE FOR DIALYSIS PATIEN TS. Sexual Assault Response Coordinator ID - KEARA WPT/[id number] 09:05:40 Test Item Value Reference Range Interpretation [...] 2.5-3.5 for patients with mechanical heart valves.SARS-COV2/RT-PCR ([facility]) 2021-05-01 12:34:25 Test Item Value Reference Range Interpretation Comments SARS-COV2/RT-PCR (test Negative Not Detected, Negative, code = 0611497) See external report for linked test SARS-COV-2 PERFORMING LAB [facility] (test code = 3915995) Negative result for this test determines that [...] 564(g) of the Act.Fact Sheet for Healthcare Providers:https://www.[employer]/sites/default/files/product/documents/Fact_Shee n_KL_Ouwzuxtzj_Fros_PSAK-LzJ-4.pdfFact Sheet for Healthcare Patients:https://www.[employer]/sites/default/files/product/ documents/Mlyt_Teedb_Xbytdkwc_Iykd_GMFL-VcR-8.pdfPerforming Laboratory:[facility], [place] [address]GJQ, CHEST, 1 VIEW, NON [id number] 09:29:00Reason for exam:->shortness of breathShould this be performed at the bedside?->Yes [facility] : 1945 Sex: MFINAL REPORT Chest AP portable History provided: Shortness of breath Heart size magnified by projection. Lungs are clear and vascularity normal. Signed: Jeffers, PhilipMDReport Verified Date/Time: 05/01/2021 09:29:27 Reading Location: [facility] Radiology Reading Room CBC (HEMOGRAM ONLY)2021-05-01 [...] (BEAKER) (test code = 413) BASIC METABOLIC [id number] 06:24:43 Test Item Value Reference Range Interpretation [...] S NOT APPLICABLE FOR DIALYSIS PATIEN TS. Sexual Assault Response Coordinator ID - PIAYA LBASIC METABOLIC [id number] 15:17:17 Test Item Value Reference Range Interpretation [...] S NOT APPLICABLE FOR DIALYSIS PATIEN TS. Sexual Assault Response Coordinator ID - DBCBC W/PLT COUNT & AUTO [id number] 14:42:15 Test Item Value Reference Range Interpretation [...] (BEAKER) (test code = 2801) HEMOGLOBIN AND [id number] 14:41:31 Test Item Value Reference Range Interpretation Comments HEMOGLOBIN (BEAKER) (test code = 9.7 GM/DL 13.7-17.5 L 410) HEMATOCRIT (BEAKER) (test code = 33.4 % 40.1-51.0 L 411) Sexual Assault Response Coordinator ID - [id number], [id number] 02:24:00Unlisted Reason for Exam - Click Yes and Enter Reason Below->NoWill this procedure require oral co ntrast?->NoAUGUSTIN [facility] CENTERName: [facility]EN [facility]AYAN : 1945 [...] Aman Diane MDReport Verified Date/Time:04/30/2021 02:24:34 HEMOGLOBIN [id number] 09:35:28 Test Item Value Reference Range Interpretation Comments HEMOGLOBIN A1C (BEAKER) (test code = 6.6 % 4.3-6.1 H 368) HEPATIC FUNCTION [id number] 05:59:52 Test Item Value Reference Range Interpretation [...] (test code = 38 U/L 6-55 347) Sexual Assault Response Coordinator ID - MARZENA [id number] 05:59:50 Test Item Value Reference Range Interpretation Comments MAGNESIUM (BEAKER) (test code = 2.9 mg/dL 1.6-2.6 H 627) Sexual Assault Response Coordinator ID - MARZENA MLIPID [id number] 05:59:50 Test Item Value Reference Range Interpretation [...] Borderline 130-159 High 160-189 Very High >=190 Sexual Assault Response Coordinator ID - MARZENA MBASIC METABOLIC [id number] 05:59:49 Test Item Value Reference Range Interpretation [...] S NOT APPLICABLE FOR DIALYSIS PATIEN TS. Sexual Assault Response Coordinator ID - MARZENA MB-TYPE NATRIURETIC FACTOR (BNP)2021-04-29 05:49:20 Test Item Value Reference Range Interpretation Comments B-TYPE NATRIURETIC PEPTIDE (BEAKER) 329 pg/mL 0-100 H (test code = 700) Sexual Assault Response Coordinator ID - DBPROTHROMBIN TIME/[id number] 05:43:23 Test Item Value Reference Range Interpretation Comments PROTIME (BEAKER) 15.3 seconds 11.9-14.2 H (test code = 759) INR (BEAKER) (test 1.23 See_Comment [Automat ed message] code = 370) The system [employer] generated this result transmitted ref erence range: [...] (BEAKER) (test code = 2801) BASIC METABOLIC [id number] 20:29:00 Test Item Value Reference Range Interpretation [...] S NOT APPLICABLE FOR DIALYSIS PATIEN TS. Sexual Assault Response Coordinator ID - [id number] 16:56:00 Test Item Value Reference Range Interpretation Comments FERRITIN (BEAKER) (test code = 13.77 ng/mL 5.00-275.00 361) Sexual Assault Response Coordinator ID - DBHIGH SENSITIVITY TROPONIN [id number] 16:42:00 Test Item Value Reference Range Interpretation Comments HIGH SENSITIVITY 13 pg/ml See_Comment [Automated message] TROPONIN I (test code = The system which [id number]) generated this result transmitted ref erence range: <=35. Th e reference range was not used to int erpret this result as normal/abnormal . Sexual Assault Response Coordinator ID - DBThe ACCOUNT ADMINISTRATOR STAT High Sensitivity Troponin-I results should be used in conjunctionwith other diagnostic information such as ECG, clinical observations and information, and patient symptoms to aid in the diagnosis of NC.HIGH SENSITIVITY TROPONIN [id number] 16:41:00 Test Item Value Reference Range Interpretation Comments HIGH SENSITIVITY 15 pg/ml See_Comment [Automated message] TROPONIN I (test code = The system which [id number]) generated this result transmitted ref erence range: <=35. Th e reference range was not used to int erpret this result as normal/abnormal . Sexual Assault Response Coordinator ID - DBThe ACCOUNT ADMINISTRATOR STAT High Sensitivity Troponin-I results should be used in conjunctionwith other diagnostic information such as ECG, clinical observations and information, and patient symptoms to aid in the diagnosis of NC.IRON, TIBC, % SAT. (WITHOUT FERRITIN)2021-04-28 16:35:00 Test Item Value Reference Range Interpretation Comments IRON (BEAKER) (test code = 547) 22.0 ug/dL 40.0-160.0 L TOTAL IRON BINDING CAPACITY 473 ug/dL 250-450 H (BEAKER) (test code = 769) IRON % SATURATION (2) (BEAKER) 5 % 20-55 L (test code = 2590) Sexual Assault Response Coordinator ID - DBHEMOGLOBIN AND [id number] 15:56:00 Test Item Value Reference Range Interpretation Comments HEMOGLOBIN (BEAKER) (test code = 9.2 GM/DL 13.7-17.5 L 410) HEMATOCRIT (BEAKER) (test code = 30.6 % 40.1-51.0 L 411) Sexual Assault Response Coordinator ID - [id number]
== END 2021-06-30 21:06 | disposition home or self-care (01) ==
LOC: ER 18:21
DX: R06.00 Dyspnea, unspecified (principal); F41.9 Anxiety disorder, unspecified; I10 Essential (primary) hypertension; I48.91 Unspecified atrial fibrillation
CPT/HCPCS: 36415; 71045; 80048; 80076; 83735; 83880; 84484; 85025; 85610; 93005; 99284

== ENCOUNTER 2021-07-08 19:05 | Inpatient (IN) | payer OTHER ==
--- OUTSIDE RECORDS SUMMARY | 2021-07-08 19:11 | XMS REPORT | Continuity of Care Document ---
:1945 Author Organization [facility] t Address [address] [place] [address] Care Team Providers Name Role Phone Kai Montez MD Primary Care Physician [phone] ELLA Attending Clinician Unavailable BRIDGER Attending Clinician Unavailable MARAH JONES Attending Clinician Unavailable DANIEL Attending Clinician Unavailable RUSS QUINTANILLA Attending Clinician Unavailable VERONICA CODY Attending Clinician Unavailable GINGER SCOTT Attending Clinician Unavailable Herb Nath MD Attending Clinician Rocio ELLIS Attending Clinician Doctor Unassigned, Name Attending Clinician Unavailable ELLA Admitting Clinician Unavailable JL BIRD Admitting Clinician Unavailable RUSS QUINTANILLA Admitting Clinician Unavailable PARIS Admitting Clinician Unavailable SARBJIT Admitting Clinician Unavailable Herb Nath MD Admitting Clinician Payers Payer Name Policy Type Policy Number Effective Date Expiration Date S sue [employer] [id number] 2020 HMO 00:00:00 TOTALCARE SNP [id number] 2020 MEDICARE O-CIGNA 00:00:00 Problems Condition Condition Condition Status Onset Resolution Last Treating Co mments Source Name Details Category Date Date Treatment Clinician Date No known No known Disease Unive rs active active ity of problems problems [facility] Allergies, Adverse Reactions, Alerts Allergy Allergy Status Severity Reaction(s) Onset Inactive Treating Comm ents Source Name Type Date Date Clinician Aspirin Propensi Active 2020-08 [facility] ty to 1-04 College adverse 00:00: of reaction 00 Medicin s to e drug APIXABAN Allergy Active 2020-[address] [facility] ASPIRIN Allergy Active [facility] NO KNOWN Allergy Active [facility] Social History Social Habit Start Date Stop Date Quantity Comments Source Tobacco use and 2021-06-22 2021-06-22 Never used [facility] Co llege of exposure 00:00:00 00:00:00 Medicine Sex [birth year] [facility] of 00:00:00 00:00:00 Medicine Smoking Status Start Date Stop Date Source Never smoker [facility] o f Medicine Former smoker 2019-04-22 00:00:00 2019-04-22 00:00:00 [facility] Medications Ordered Filled Start Stop Current Ordering Indication Dosage Frequency Signature Comments Components Source Medication Medication Date Date Medication? Clinician (SIG) Name Name atorbradford 2020-08 Yes 20mg Take 20 mg [facility] n (LIPITOR) 1-04 by mouth. Col lege 20 MG 08:27: of tablet 20 Medicin e omeprazole 2020-08 Yes 40mg Take 1 [facility] (PRILOSEC) 1-04 capsule by Col lege 40 MG 00:00: mouth two of capsule 00 times Medicin daily. e benzonatate 2020-08 Yes [facility] (TESSALON) 0-25 [place] 100 mg 00:00: of capsule 00 Medicin e docusate 2020-08 Yes [facility] sodium 0-17 College (COLACE) 00:00: of 100 MG 00 Medicin capsule e metoprolol 2020-08 Yes [facility] (LOPRESSOR) 0-17 College 25 MG 00:00: of tablet 00 Medicin e promethazin 2020-08 Yes [facility] e 0-11 College (PHENERGAN) 00:00: of 12.5 MG 00 Medicin tablet e Apixaban 5 2020-08- Yes 5mg Take 5 mg B aylor MG TABS 031 by mouth. Colleg e 00:00: 05:59 of 00 :00 Medicin e furosemide 2020- Yes 40mg Take 40 mg Giov[facility] (LASIX) 40 05-11 by mouth. Col lege MG tablet 00:00: 05:59 of 00 :00 Medicin e Aspirin 81 2020- Yes 81mg Take 81 mg [facility] MG tablet 05-11 by mouth. [facility] 00:00: 05:59 of 00 :00 Medicin e atorvastati Yes 20mg Take 20 mg Univers n 20 mg 9-04 by mouth ity of tablet 14:02: at [place] 00 bedtime. Medical Branch clopidogrel Yes 75mg Take 75 mg Univers 75 mg 9-04 by mouth ity of tablet 14:02: daily. Medical Branch valsartan Yes 320mg Take 320 Uni vers 320 mg 9-04 mg by ity of tablet 14:02: mouth [place] 00 daily. Medical Branch atorvastati Yes 20mg Take 20 mg Univers n 20 mg 9-04 by mouth ity of tablet 14:02: at [place] 00 bedtime. Medical Branch clopidogrel Yes 75mg Take 75 mg Univers 75 mg 9-04 by mouth ity of tablet 14:02: daily. Medical Branch valsartan Yes 320mg Take 320 Uni vers 320 mg 9-04 mg by ity of tablet 14:02: mouth [place] 00 daily. Medical Branch atorvastati Yes 20mg Take 20 mg Univers n 20 mg 9-04 by mouth ity of tablet 14:02: at [place] 00 bedtime. Medical Branch clopidogrel Yes 75mg Take 75 mg Univers 75 mg 9-04 by mouth ity of tablet 14:02: daily. Medical Branch valsartan Yes 320mg Take 320 Uni vers 320 mg 9-04 mg by ity of tablet 14:02: mouth [place] 00 daily. Medical Branch ondansetron Yes 4mg 4 mg, Slow Univers (ZOFRAN 04-22 IV Push, ity of (PF)) 13:19: PRN, 1 [place] injection 4 48 dose, Medical mg Starting Branch 04/22/19 at 0819, Until Discontinu ed, Routine, Nausea and Vomiting (N/V), PACU FENTanyl PF Yes 25ug 25 mcg, Uni vers (SUBLIMAZE 04-22 Slow IV ity of (PF)) 13:19: Push, [place] injection 47 Q5MIN PRN, Medi allison 25 mcg 4 doses, Branch Starting Sat04/22/19 at 0819, Until Discontinu ed, Routine, Pain (scale 7-10), PACU FENTanyl PF 2019-0 Yes 25ug 25 mcg, Uni vers (SUBLIMAZE 9-04 Slow IV ity of (PF)) 13:19: Push, [place] injection 47 Q5MIN PRN, Medi allison 25 mcg 4 doses, Branch Starting Sat04/22/19 at 0819, Until Discontinu ed, Routine, Pain (scale 4-6), PACU water for 2019-0 Yes PRN, Univers irrigation 04-22 Starting ity o f irrigation 13:02: Sat04/22/19 [place] solution 00 at 0802, Medical Until Branch Discontinu ed, Routine, Intra-op simethicone 2019-0 Yes PRN, Univer s (GAS 04-22 Starting ity of RELIEF) 40 13:01: Sat04/22/19 [place] mg/0.6 mL 00 at 0801, Medica l drops Until Branch Discontinu ed, Routine, Intra-op propofol 2018- 2019- No ONCE INTRA Un amrit injection 04-22 PROCEDURE, ity of 13:00: 13:14 Starting [place] 00 :47 Sat04/22/19 Medical at 0800, Branch Until Sat04/22/19 at 0814, Routine, Intra-op lidocaine 2018- 2019- No ONCE INTRA U nivers 1% 04-22 PROCEDURE, ity of (XYLOCAINE) 12:59: 13:14 Starting [place] 100 mg/10 00 :54 Sat04/22/19 Medi allison mL (1 %) at 0759, Branch injection Until Sat04/22/19 at 0814, Routine, Intra-op lactated 2018- 2019- No CONTINUOUS Un amrit ringers IV 04-22 PRN, ity of infusion 11:42: 13:14 [place] 00 :10 Sat04/22/19 Medical at 0642, Branch Until Sat04/22/19 at 0814, Routine, Intra-op lactated 2019- 2019- No 1000mL at 20 Unive rs ringers IV 9-04 09-04 mL/hr, ity of infusion 11:30: 11:42 1,000 mL, [place] as 1,000 mL 00 :00 IV Medical Infusion, Branch ONCE, 1 dose, 04/22/19 at 0630, Routine, DSU Pre-op Vital Signs Vital Name Observation Time Observation Value Comments Source WEIGHT 2021-05-06 08:52:00 88.2 kg WEIGHT 2021-05-03 09:54:00 92.08 kg HEIGHT 2021-04-28 15:00:00 165.1 cm HEIGHT 2021-07-03 20:00:00 167.6 cm WEIGHT 2021-07-03 20:00:00 81.8 kg HEIGHT 2021-07-03 12:30:00 167.6 cm WEIGHT 2021-07-03 12:30:00 76.204 kg HEIGHT 2021-07-03 20:00:00 167.6 cm WEIGHT 2021-07-03 20:00:00 81.8 kg HEIGHT 2021-07-03 12:30:00 167.6 cm WEIGHT 2021-07-03 12:30:00 76.204 kg Systolic blood 2021-06-22 13:19:00 140 mm[Hg] [facility] Heart pressure Medicine Diastolic blood 2021-06-22 13:19:00 82 mm[Hg] [facility] of pressure Medicine Heart rate 2021-06-22 13:19:00 86 /min [facility] Body temperature 2021-06-22 13:19:00 36.83 Lalita [facility] Body height 2021-06-22 13:19:[address] [facility] Body weight 2021-06-22 13:19:[address] [facility] BMI 2021-06-22 13:19:00 30.15 kg/m2 [facility] WEIGHT 2021-05-23 22:20:00 83.643 kg HEIGHT 2021-05-23 [...] blood 2019-04-22 13:42:00 140 mm[Hg] Univer sity [place] [facility] Diastolic blood 2019-04-22 13:42:00 73 mm[Hg] Unive [facility] Heart rate 2019-04-22 13:42:00 56 /min [facility] Respiratory rate 2019-04-22 13:42:00 16 /min General acute hospital Oxygen saturation in 2019-04-22 13:42:00 99 /min [facility] Arterial blood by [facility] Pulse oximetry Branch Body temperature 2019-04-22 13:27:00 36.33 Lalita [facility] height 2019-04-17 16:00:00 162.6 cm [facility] Body weight 2019-04-17 16:00:00 91.173 kg [facility] BMI 2019-04-17 16:00:00 34.50 kg/m2 [facility] Systolic blood 2019-04-22 13:42:00 140 mm[Hg] Univer sity [facility] Diastolic blood 2019-04-22 13:42:00 73 mm[Hg] Unive rsity of pressure [facility] Heart rate 2019-04-22 13:42:00 56 /min [facility] Respiratory rate 2019-04-22 13:42:00 16 /min General acute hospital Oxygen saturation in 2019-04-22 13:42:00 99 /min [facility] Arterial blood by [facility] Pulse oximetry [place] Body temperature 2019-04-22 13:27:00 36.33 Lalita [facility] acute hospital Body height 2019-04-17 16:00:00 162.6 cm [facility] Body weight 2019-04-17 16:00:00 91.173 kg [facility] BMI 2019-04-17 16:00:00 34.50 kg/m2 [facility] Procedures Procedure Date / Time Performed Performing Clinician Sourc e EGD (ENDO) 2019-04-22 12:55:[address] [facility] 2019-04-22 05:01:00 Doctor Unassigned, No [facility] Plan of Care Planned Activity Planned Date Details Comments Source Future Scheduled 2021-06-22 CBC W/AUTO DIFF Ordered: [facility] ollege Test 09:11:41 WITH PLATELETS 06/22/2021 of Medicine [code = 39695-4] Future Scheduled 2021-06-22 FERRITIN [code = Ordered: [facility] Test 09:11:41 30897-7] 06/22/2021 of Medicine Future Scheduled 2021-06-22 IRON+TIBC+%SAT Ordered: [facility] Co llege Test 09:11:41 [code = NOCPT] 06/22/2021 of Medicine Future Scheduled 2021-06-22 TETANUS SHOT [facility] Test 08:19:01 (ADULT) [code = of Medicine TETANUS SHOT (ADULT)] Future Scheduled 2021-06-22 Hepatitis C [facility] Test 08:19:01 screening of Medicine (procedure) [code = 877179843] Future Scheduled 2021-06-22 ZOSTER VACCINE (1 [facility] Test 08:19:01 of 2) [code = of Medicine ZOSTER VACCINE (1 of 2)] Future Scheduled 2021-06-22 FALL SCREEN [code [facility] Test 08:19:01 = FALL SCREEN] of Medicine Future Scheduled 2021-06-22 PNEUMOVAX >=65 [facility] Co llege Test 08:19:01 (PPSV23) [code = of Medicine PNEUMOVAX >=65 (PPSV23)] Future Scheduled 2021-06-22 MEDICARE IPPE [facility] Col lege Test 08:19:01 (WELCOME TO of Medicine MEDICARE) [code = MEDICARE IPPE (WELCOME TO MEDICARE)] Future Scheduled 2021-06-22 FLU VACCINE > 6 [facility] C ollege Test 08:19:01 MONTHS [code = FLU of Medici ne VACCINE > 6 MONTHS] Encounters Start End Encounter Admission Attending Care Care Encounter Source Date/Time Date/Time Type Type Clinicians Facility Department ID 2021-05-28 Inpatient ER ELLA [facility] Gastro [id number] [facility] 12:00:47 TEDDYLUIS 2021-07-03 2021-07-04 Outpatient ER DARLENE SPARKS [facility] Emergency 20 [id number] [facility] 12:24:00 14:27:00 2021-06-22 2021-06-22 Office DANIEL [facility] [id number] [facility] 08:13:37 11:39:39 Visit RICK AMBULATOR [id number] College Y 0.2.7.2.686 of [id number] Medi eddie 325 e 2021-05-23 2021-05-26 Inpatient ER GISSELLAR, [facility] Emergency 20 [id number] [facility] 15:12:00 15:03:00 MALKA 2021-05-23 2021-05-23 Outpatient [facility] [id number] [facility] 00:00:00 23:59:00 Colleg e of Medicin e 2021-05-20 2021-05-20 Emergency ER [facility] Emergency [id number] [facility] 01:57:00 01:57:00 2021-05-15 2021-05-15 Outpatient [facility] [id number] [facility] 00:00:00 23:59:00 Colleg e of Medicin e 2021-05-15 2021-05-15 Emergency ER [facility] Emergency [id number] [facility] 12:00:00 12:00:00 2021-04-29 2021-04-29 Outpatient [facility] [id number] [facility] 00:00:00 23:59:00 Colleg e of Medicin e 2021-04-28 2021-04-28 Outpatient BCM BC [id number] [facility] 12:32:00 23:59:00 Colleg e of Medicin e 2019-04-22 2019-04-22 [facility] [id number] 06:15:00 08:56:00 Encounter Katy mena 350.1.13.10 [place] 4.2.7.2.686 Surgical [id number] [place] [address] 2019-04-22 2019-04-22 [facility] [id number] [facility] 06:15:00 08:56:00 Encounter Katy mena 350.1.13.10 ity of [place] [id number] [facility] 071 Branch 2019-04-22 2019-04-[address] [facility] [id number] [facility] 07:54:00 08:13:00 Jaden Loyola 350.1.13.10 i [place] [id number] [facility] 020 Branch 2019-04-22 2019-04-[address] [facility] [id number] 07:54:00 08:13:00 Jaden Loyola 350.1.13.10 [place] 4.2.7.2.686 Surgical [id number] [place] 020 2019-04-22 2019-04-22 Orders Doctor MURILLO [id number] [place] [address] 00:00:00 00:00:00 Only Unassigned, ANA MARIA 350.1.13.10 ity of [place] [facility] 4.2.7.2.686 [place] as [id number] [address] 2019-04-22 2019-04-22 Orders Doctor MURILLO [id number] 00:00:00 00:00:00 Only Unassigned, ANA MARIA 350.1.13.10 [place] [facility] 4.2.7.2.686 [id number] Results Test Description Test Time Test Comments Results Result Sourc e Comments FL, ESOPHAGUS 2021-07-04 [facility]ast[facility]fin 11:34:00 studyReason for exam:->POST-OP [facility] PROBLEM[facility] 1 CENTERName: month ago CADEN NARAYAN ISREAL : 1945 Sex: M FI NAL REPORT Gastrografin esophagogram Clinical History: POST-OP PROBLEM Discussion: Gastrografin is given to the patient to drink, without difficulties. The esophageal motility, caliber, and gastroesophageal junction are normal. Esophageal mucosa is suboptimally evaluated, but appears unremarkable. There is no contrast extravasation. Fluoro time: 0.5 minutes Number of images obtained: 6 Signed: Jim Espana Verified Date/Time: 07/04/2021 11:34:49 Reading Location: [address] Consult Reading Room C METABOLIC PANEL 2021-07-04 04:39:36 Test Item Value Reference Range Interpretation Comme nts SODIUM (BEAKER) (test code 143 meq/L 136-145 = 381) POTASSIUM (BEAKER) (test 3.2 meq/L 3.5-5.1 L code = 379) CHLORIDE (BEAKER) (test 107 meq/L 98-107 code = 382) CO2 (BEAKER) (test code = 25 meq/L 22-29 355) BLOOD UREA NITROGEN 11 mg/dL 7-21 (BEAKER) (test code = 354) CREATININE (BEAKER) (test 0.87 mg/dL 0.57-1.25 code = 358) GLUCOSE RANDOM (BEAKER) 89 mg/dL 70-105 (test code = 652) CALCIUM (BEAKER) (test code 9.1 mg/dL 8.4-10.2 = 697) EGFR (BEAKER) (test code = 85 mL/min/1.73 sq m ESTIMATED GFR IS NOT 1092) ACCURATE CRE ATININE CLEARANCE IN ND EDICTING GLOMERULAR FILT RATION RATE. ESTIMATED GFR IS NOT APPLICABLE FOR DIALYSIS PATIENTS. Radio Station Audio Engineer ID - MARZENA MSARS-COV2/RT-PCR ([facility])2021-07-03 17:50:45 Test Item Value Reference Range Interpretation Comments SARS-COV2/RT-PCR Negative Negative The SARS-Co V-2 target (test code = nucleic acids a re not 9225637) detected in thi s specimen. Negative result [...] revoked sooner. Fact Sheet for Healthcare Providers: https://www.[employer]oz[employer].com/Documents/Xpert%20Xpress%20SARS%20CoV-2/Fact%20Sheets/302-3802%20SARS-COV -2%20HEALTHCARE%20PROVIDERS%20FACT%20SHEET.pdf Fact Sheet for Healthcare Patients: https://www.[employer].Everlaw/Documents/Xpert %20Xpress%20SARS%20CoV-2/Fact%20Sheets/302-3801%98ETEB-TGK-0%20PATIENT%20FACT%20 SHEET.esuR-[id number] 17:04:25 Test Item Value Reference Range Interpretation Comments D-DIMER QUANTITATIVE (BEAKER) < MG/L FEU <0.50 (test code = 671) Intended Use: The D-Dimer Assay can be used to aid in the diagnosis of Deep Vein Thrombosis (DVT) and Pulmonary Embolism Disease (PED).In patients with low pre- test probability, various studies concerning STA Liatest D-dimer test have reported that with a cutoff value of 0.50 MG/L FEU, the Negative Predictive Value (NPV) regarding the exclusion of thrombosis is within 95-100% range.BLOOD GAS, [id number] 16:22:57 Test Item Value Reference Range Interpretation Comments PH VENOUS (BEAKER) (test code = 7.50 7.32-7.42 H 701) PCO2 VENOUS (BEAKER) (test code = 34 mm Hg 41-51 L 755) PO2 VENOUS (BEAKER) (test code = 142 mm Hg 25-40 H 702) O2 SATURATION VENOUS (BEAKER) 99.0 % 40.0-70.0 H (test code = 703) HCO3 VENOUS (BEAKER) (test code = 27 mmol/L 21-29 705) BASE EXCESS VENOUS (BEAKER) (test 3.3 mmol/L -2.0-3.0 H code = 704) PATIENT TEMPERATURE (BEAKER) (test 37.0 code = 1818) FIO2 (BEAKER) (test code = 1819) 21.0 RAD, CHEST, 2 [id number] 14:40:00Reason for exam:->CHEST PAIN since endoscopy a month agopost endocscopy 1 month [facility] 1945 Sex: MFINAL REPORT EXAM: Chest one view COMPARISON: May 15, 2021 CLINICAL HISTORY: Chest pain FINDINGS: Minimal blunting of bilateral posterior costophrenic sulci are noted which may represent small effusions. The cardiac size remains enlarged. There is no evidence of pulmonary consolidation or pneumothorax. The regional osseous structures are unremarkable. Signed:Mati Ackermaneport Verified Date/Time: 07/03/2021 14:40:03 [id number] 14:12:25 Test Item Value Reference Range Interpretation Comments LIPASE (BEAKER) (test code = 749) 22 U/L 8-78 Radio Station Audio Engineer ID - DBCOMPREHENSIVE METABOLIC [id number] 14:12:24 Test Item Value Reference Range Interpretation Comments TOTAL PROTEIN 6.1 gm/dL 6.0-8.3 (BEAKER) (test code = 770) ALBUMIN (BEAKER) 3.6 g/dL 3.5-5.0 (test code = 1145) ALKALINE PHOSPHATASE 84 U/L 40-150 (BEAKER) (test code = 346) BILIRUBIN TOTAL 0.4 mg/dL 0.2-1.2 (BEAKER) (test code = 377) SODIUM (BEAKER) (test 140 meq/L 136-145 code = 381) POTASSIUM (BEAKER) 3.2 meq/L 3.5-5.1 L (test code = 379) CHLORIDE (BEAKER) 107 meq/L 98-107 (test code = 382) CO2 (BEAKER) (test 24 meq/L 22-29 code = 355) BLOOD UREA NITROGEN 11 mg/dL 7-21 (BEAKER) (test code = 354) CREATININE (BEAKER) 0.96 mg/dL 0.57-1.25 (test code = 358) GLUCOSE RANDOM 166 mg/dL 70-105 H (BEAKER) (test code = 652) CALCIUM (BEAKER) 8.6 mg/dL 8.4-10.2 (test code = 697) AST (SGOT) (BEAKER) 11 U/L 5-34 (test code = 353) ALT (SGPT) (BEAKER) 20 U/L 6-55 (test code = 347) EGFR (BEAKER) (test 76 mL/min/1.73 ESTIMA LA GFR IS code = 1092) sq m NOT ACCURATE CREATININE CLEARANCE IN PREDICTING GLOMERULAR FILTRATION RATE . ESTIMATED GFR I S NOT APPLICABLE FOR DIALYSIS PATIEN TS. Radio Station Audio Engineer ID - DBHIGH SENSITIVITY TROPONIN [id number] 14:10:43 Test Item Value Reference Range Interpretation Comments HIGH SENSITIVITY 7 pg/ml See_Comment [Automated message] TROPONIN I (test code = The system which [id number]) generated this result transmitted ref erence range: <=35. Th e reference range was not used to interpr et this result as normal/abnormal . Radio Station Audio Engineer ID - RMThe MACHINE PRESSER STAT High Sensitivity Troponin-I results should be used in conjunctionwith other diagnostic information such as ECG, clinical observations and information, and patient symptoms to aid in the diagnosis of [place].B-TYPE NATRIURETIC FACTOR (BNP)2021-07-03 14:09:26 Test Item Value Reference Range Interpretation Comments B-TYPE NATRIURETIC PEPTIDE (BEAKER) 515 pg/mL 0-100 H (test code = 700) Radio Station Audio Engineer ID - RMCBC W/PLT COUNT & AUTO [id number] 13:39:07 Test Item Value Reference Range Interpretation Comments WHITE BLOOD CELL COUNT (BEAKER) 6.4 K/ L 3.5-10.5 (test code = 775) RED BLOOD CELL COUNT (BEAKER) 3.60 M/ L 4.63-6.08 L (test code = 761) HEMOGLOBIN (BEAKER) (test code = 8.9 GM/DL 13.7-17.5 L 410) HEMATOCRIT (BEAKER) (test code = 30.5 % 40.1-51.0 L 411) MEAN CORPUSCULAR VOLUME (BEAKER) 84.7 fL 79.0-92.2 (test code = 753) MEAN CORPUSCULAR HEMOGLOBIN 24.7 pg 25.7-32.2 L (BEAKER) (test code = 751) MEAN CORPUSCULAR HEMOGLOBIN CONC 29.2 GM/DL 32.3-36.5 L (BEAKER) (test code = 752) RED CELL DISTRIBUTION WIDTH 20.7 % 11.6-14.4 H (BEAKER) (test code = 412) PLATELET COUNT (BEAKER) (test 334 K/CU MM 150-450 code = 756) MEAN PLATELET VOLUME (BEAKER) 9.9 fL 9.4-12.4 (test code = 754) NUCLEATED RED BLOOD CELLS 0 /100 WBC 0-0 (BEAKER) (test code = 413) NEUTROPHILS RELATIVE PERCENT 71 % (BEAKER) (test code = 429) LYMPHOCYTES RELATIVE PERCENT 21 % (BEAKER) (test code = 430) MONOCYTES RELATIVE PERCENT 6 % (BEAKER) (test code = 431) EOSINOPHILS RELATIVE PERCENT 2 % (BEAKER) (test code = 432) BASOPHILS RELATIVE PERCENT 1 % (BEAKER) (test code = 437) NEUTROPHILS ABSOLUTE COUNT 4.50 K/ L 1.78-5.38 (BEAKER) (test code = 670) LYMPHOCYTES ABSOLUTE COUNT 1.35 K/ L 1.32-3.57 (BEAKER) (test code = 414) MONOCYTES ABSOLUTE COUNT (BEAKER) 0.37 K/ L 0.30-0.82 (test code = 415) EOSINOPHILS ABSOLUTE COUNT 0.10 K/ L 0.04-0.54 (BEAKER) (test code = 416) BASOPHILS ABSOLUTE COUNT (BEAKER) 0.03 K/ L 0.01-0.08 (test code = 417) IMMATURE GRANULOCYTES-RELATIVE 0 % 0-1 PERCENT (BEAKER) (test code = 2801) HEMOGLOBIN AND [id number] 05:07:16 Test Item Value Reference Range Interpretation Comments HEMOGLOBIN (BEAKER) (test code = 7.9 GM/DL 13.7-17.5 L 410) HEMATOCRIT (BEAKER) (test code = 26.4 % 40.1-51.0 L 411) Radio Station Audio Engineer ID - [id number] AND [id number] 18:44:57 Test Item Value Reference Range Interpretation Comments HEMOGLOBIN (BEAKER) (test code = 8.7 GM/DL 13.7-17.5 L 410) HEMATOCRIT (BEAKER) (test code = 29.7 % 40.1-51.0 L 411) Radio Station Audio Engineer ID - [id number] AND [id number] 11:29:37 Test Item Value Reference Range Interpretation Comments HEMOGLOBIN (BEAKER) (test code = 8.3 GM/DL 13.7-17.5 L 410) HEMATOCRIT (BEAKER) (test code = 28.5 % 40.1-51.0 L 411) Radio Station Audio Engineer ID - [id number] AND [id number] 04:51:37 Test Item Value Reference Range Interpretation Comments HEMOGLOBIN (BEAKER) (test code = 7.9 GM/DL 13.7-17.5 L 410) HEMATOCRIT (BEAKER) (test code = 26.9 % 40.1-51.0 L 411) Radio Station Audio Engineer ID - [id number] AND [id number] 16:42:26 Test Item Value Reference Range Interpretation Comments HEMOGLOBIN (BEAKER) (test code = 8.6 GM/DL 13.7-17.5 L 410) HEMATOCRIT (BEAKER) (test code = 29.4 % 40.1-51.0 L 411) Radio Station Audio Engineer ID - [id number] METABOLIC [id number] 09:04:40 Test Item Value Reference Range Interpretation [...] S NOT APPLICABLE FOR DIALYSIS PATIEN TS. Radio Station Audio Engineer ID - ROSIANGHEMOGLOBIN AND [id number] 08:41:52 Test Item Value Reference Range Interpretation Comments HEMOGLOBIN (BEAKER) (test code = 7.6 GM/DL 13.7-17.5 L 410) HEMATOCRIT (BEAKER) (test code = 26.5 % 40.1-51.0 L 411) Radio Station Audio Engineer ID - [id number]-COV2/RT-PCR ([facility])2021-05-23 19:59:55 Test Item Value Reference Range Interpretation Comments SARS-COV2/RT-PCR Negative Negative The SARS-Co V-2 target (test code = nucleic acids a re not [id number]) detected in thi s specimen. Negative result [...] revoked sooner. Fact Sheet for Healthcare Providers: https://www.[employer].Everlaw/Documents/Xpert%20Xpress%20SARS%20CoV-2/Fact%20Sheets/143-6939%20SARS-COV -2%20HEALTHCARE%20PROVIDERS%20FACT%20SHEET.pdf Fact Sheet for Healthcare Patients: https://www.[employer].Everlaw/Documents/Xpert %20Xpress%20SARS%20CoV-2/Fact%20Sheets/302-3801%54IKNT-RIO-6%20PATIENT%20FACT%20 SHEET.pdfCOMPREHENSIVE METABOLIC [id number] 17:17:21 Test Item Value Reference Range Interpretation [...] S NOT APPLICABLE FOR DIALYSIS PATIEN TS. Radio Station Audio Engineer ID - LUDA [id number] 17:17:21 Test Item Value Reference Range Interpretation Comments LIPASE (BEAKER) (test code = 749) 31 U/L 8-78 Radio Station Audio Engineer ID - LUDA FPT/[id number] 16:55:15 Test Item Value Reference Range Interpretation [...] (BEAKER) (test code = 2801) BASIC METABOLIC [id number] 04:38:30 Test Item Value Reference Range Interpretation [...] S NOT APPLICABLE FOR DIALYSIS PATIEN TS. Radio Station Audio Engineer ID - DBCBC W/PLT COUNT & AUTO [id number] 04:21:40 Test Item Value Reference Range Interpretation [...] (BEAKER) (test code = 2801) BASIC METABOLIC [id number] 07:03:04 Test Item Value Reference Range Interpretation [...] S NOT APPLICABLE FOR DIALYSIS PATIEN TS. Radio Station Audio Engineer ID - PIAYA LCBC (HEMOGRAM ONLY)2021-05-17 04:38:47 [...] (BEAKER) (test code = 413) HEMOGLOBIN AND [id number] 20:18:40 Test Item Value Reference Range Interpretation Comments HEMOGLOBIN (BEAKER) (test code = 7.7 GM/DL 13.7-17.5 L 410) HEMATOCRIT (BEAKER) (test code = 25.7 % 40.1-51.0 L 411) Radio Station Audio Engineer ID - 6000BASIC METABOLIC [id number] 06:32:43 Test Item Value Reference Range Interpretation [...] S NOT APPLICABLE FOR DIALYSIS PATIEN TS. Radio Station Audio Engineer ID - MARZENA MCBC W/PLT COUNT & AUTO [id number] 06:09:12 Test Item Value Reference Range Interpretation [...] (BEAKER) (test code = 2801) HEMOGLOBIN AND [id number] 00:13:44 Test Item Value Reference Range Interpretation Comments HEMOGLOBIN (BEAKER) (test code = 8.0 GM/DL 13.7-17.5 L 410) HEMATOCRIT (BEAKER) (test code = 28.1 % 40.1-51.0 L 411) Radio Station Audio Engineer ID - [id number]-COV2/RT-PCR ([facility])2021-05-15 18:07:21 Test Item Value Reference Range Interpretation Comments SARS-COV2/RT-PCR Negative Negative The SARS-Co V-2 target (test code = nucleic acids a re not 7140315) detected in thi s specimen. Negative result [...] individuals suspected of CO VID-19 by their healthtrihealth e provider. This test has been authorized [...] revoked sooner. Fact Sheet for Healthcare Providers: https://www.Voztelecom.Everlaw/Documents/Xpert%20Xpress%20SARS%20CoV-2/Fact%20Sheets/3023802%20SARS-COV -2%20HEALTHCARE%20PROVIDERS%20FACT%20SHEET.pdf Fact Sheet for Healthcare Patients: https://www.Contix/Documents/Xpert %20Xpress%20SARS%20CoV-2/Fact%20Sheets/3023801%10GHDO-YFT-2%20PATIENT%20FACT%20 SHEET.pdfHIGH SENSITIVITY TROPONIN [id number] 15:44:19 Test Item Value Reference Range Interpretation Comments HIGH SENSITIVITY 6 pg/ml See_Comment [Automated message] TROPONIN I (test code = The system which 3636053) generated this result transmitted ref erence range: <=35. Th e reference range was not used to interpr et this result as normal/abnormal . Radio Station Audio Engineer ID - DBThe MACHINE PRESSER STAT High Sensitivity Troponin-I results should be used in conjunctionwith other diagnostic information such as ECG, clinical observations and information, and patient symptoms to aid in the diagnosis of [place].[id number] 15:36:53 Test Item Value Reference Range Interpretation Comments MAGNESIUM (BEAKER) (test code = 2.1 mg/dL 1.6-2.6 627) Radio Station Audio Engineer ID - [id number] 15:36:53 Test Item Value Reference Range Interpretation Comments PHOSPHORUS (BEAKER) (test code = 3.3 mg/dL 2.3-4.7 604) Radio Station Audio Engineer ID - DBCOMPREHENSIVE METABOLIC [id number] 15:36:52 Test Item Value Reference Range Interpretation [...] S NOT APPLICABLE FOR DIALYSIS PATIEN TS. Radio Station Audio Engineer ID - DBCBC W/PLT COUNT & AUTO [id number] 15:12:30 Test Item Value Reference Range Interpretation [...] = 2801) RAD, CHEST, 1 VIEW, NON [id number] 13:55:00Reason for exam:->MELENAReason for exam:->GENERAL ILLNESSReason for exam:->GENERALIZED WEAKNESS, NOT ASSOCIATED WITH EXTREMITIESShould this be performed at the bedside?->Yes [facility] 1945 Sex: MFINAL REPORT INDICATION: MELENAGENERAL ILLNESSGENERALIZED WEAKNESS, NOT ASSOCIATED WITH EXTREMITIES COMPARISON: 05/01/2021 TECHNIQUE: Single frontal view of the chest. FINDINGS: Lungs and pleura: Clear lungs. No effusion.Heart and mediastinum: Normal heart size. Unremarkable mediastinal contours.Osseous structures: No acute abnormality.Other: None. IMPRESSION: No acute intrathoracic abnormality. Signed: Gaby Scott Verified Date/Time: 05/15/2021 13:55:04 Reading Location: [facility] Radiology Reading Room [id number] 07:19:33 Test Item Value Reference Range Interpretation Comments MAGNESIUM (BEAKER) (test code = 2.4 mg/dL 1.6-2.6 627) Radio Station Audio Engineer ID - PIAYA LBASIC METABOLIC [id number] 07:19:32 Test Item Value Reference Range Interpretation [...] S NOT APPLICABLE FOR DIALYSIS PATIEN TS. Radio Station Audio Engineer ID - PIAYA LCBC W/PLT COUNT & AUTO [id number] 06:34:22 Test Item Value Reference Range Interpretation [...] (test code = 2801) UREA NITROGEN, RANDOM [id number] 17:46:02 Test Item Value Reference Range Interpretation Comments UREA NITROGEN URINE (BEAKER) (test 404 mg/dL code = 538) Reference Range: No NormalsOperator ID - BSSODIUM, RANDOM [id number] 17:46:01 Test Item Value Reference Range Interpretation Comments SODIUM URINE (BEAKER) (test code = 101 meq/L 243) Reference Range: No NormalsOperator ID - BSCREATININE, RANDOM [id number] 17:46:00 Test Item Value Reference Range Interpretation Comments CREATININE URINE (BEAKER) (test 61.7 mg/dL code = 375) Reference Range: No NormalsOperator ID - BSURINALYSIS WITH MICROSCOPIC IF [id number] 16:41:11 Test Item Value Reference Range Interpretation [...] = 463) SOURCE(BEAKER) (test code = 2795) Radio Station Audio Engineer ID - [auto]BLOOD [id number] 11:01:01 Test Item Value Reference Range Interpretation Comments CULTURE (BEAKER) (test No growth in 5 days code = 1095) BLOOD [id number] 11:01:01 Test Item Value Reference Range Interpretation Comments CULTURE (BEAKER) (test No growth in 5 days code = 1095) The specimen volume collected for this blood culture was below the optimum (10 mL per bottle or 20 mL total). Use of lower volumes may adversely affect recovery and/or detection times of some organisms.[id number] 05:38:27 Test Item Value Reference Range Interpretation Comments MAGNESIUM (BEAKER) (test code = 2.3 mg/dL 1.6-2.6 627) Radio Station Audio Engineer ID - PIAYA LBASIC METABOLIC [id number] 05:38:26 Test Item Value Reference Range Interpretation [...] S NOT APPLICABLE FOR DIALYSIS PATIEN TS. Radio Station Audio Engineer ID - PIAYA LPROTHROMBIN TIME/[id number] 05:23:25 Test Item Value Reference Range Interpretation Comments PROTIME (BEAKER) 16.9 seconds 11.9-14.2 H (test code = 759) INR (BEAKER) (test 1.39 See_Comment [Automat ed message] code = 370) The system Elivar generated this result transmitted ref erence range: [...] (BEAKER) (test code = 2801) COMPREHENSIVE METABOLIC [id number] 16:17:38 Test Item Value Reference Range Interpretation [...] S NOT APPLICABLE FOR DIALYSIS PATIEN TS. Radio Station Audio Engineer ID - DBSARS-COV2/RT-PCR ([facility])2021-05-08 12:32:16 Test Item Value Reference Range Interpretation Comments SARS-COV2/RT-PCR (test Negative Not Detected, Negative, code = 7638226) See external report for linked test SARS-COV-2 PERFORMING LAB [facility] (test code = 7802121) Negative result for this test determines that [...] 564(g) of the Act.Fact Sheet for Healthcare Providers:https://www.DoorDash/sites/default/files/product/documents/Fact_Shee z_VA_Uwxjcdgzj_Uagz_GIMH-UvF-7.pdfFact Sheet for Healthcare Patients:https://www.DoorDash/sites/default/files/product/ documents/Fndx_Ouqgh_Mmtojulq_Nfda_EMRP-BaC-3.pdfPerforming Laboratory:[address]staci NgRyd[place], [place] [address]QZL (HEMOGRAM ONLY) 2021-05-08 06:41:47 Test Item Value [...] code = 413) MYOCARD IMAGING, MULTI, PHARM, [id number] 13:41:00Unlisted Reason for Exam - Click Yes and Enter Reason Below->No [facility] : 1945 Sex: MFINAL REPORT PROCEDURE: Rest/Stress MYOCARDIAL PERFUSION SPECT with regadenoson\\XA9\\ CPT CODE: 40310 INDICATION: Chest pain PROTOCOL: 10.6 mCi of [...] (BEAKER) (test code = 413) BASIC METABOLIC [id number] 06:10:10 Test Item Value Reference Range Interpretation [...] S NOT APPLICABLE FOR DIALYSIS PATIEN TS. Radio Station Audio Engineer ID - SHANE GCBC (HEMOGRAM ONLY)2021-05-06 05:35:30 [...] 0-0 H (BEAKER) (test code = 413) [id number] 17:04:33 Test Item Value Reference Range Interpretation Comments PARTIAL THROMBOPLASTIN TIME 75.5 seconds 22.5-36.0 H (BEAKER) (test code = 760) [id number] 08:48:29 Test Item Value Reference Range Interpretation Comments PARTIAL THROMBOPLASTIN TIME 39.1 seconds 22.5-36.0 H (BEAKER) (test code = 760) [id number] 07:02:01 Test Item Value Reference Range Interpretation [...] (BEAKER) (test code = 413) BASIC METABOLIC [id number] 06:36:45 Test Item Value Reference Range Interpretation [...] S NOT APPLICABLE FOR DIALYSIS PATIEN TS. Radio Station Audio Engineer ID - SHANE [id number] 22:11:03 Test Item Value Reference Range Interpretation Comments PARTIAL THROMBOPLASTIN TIME 88.2 seconds 22.5-36.0 H (BEAKER) (test code = 760) PERIPHERAL BLOOD SMEAR - PATHOLOGIST [id number] 18:22:51 Test Item Value Reference Range Interpretation Comments PERIPHERAL SMR Microcytic hypochromic REVIEW (BEAKER) anemia with marked (test code = 2640) anisopoikilocytosis and polychromasia, consistent with history of LEESA. Leukocytosis with predominantly mature granulocytes. No blasts seen. Adequate platelets with unremarkable morphology. [id number] Andreina Schmidt, 112 (BEAKER) (test M.D code [...] (BEAKER) (test code 2+ moderate = 966) [id number] 12:13:05 Test Item Value Reference Range Interpretation Comments PARTIAL THROMBOPLASTIN TIME 55.6 seconds 22.5-36.0 H (BEAKER) (test code = 760) TISSUE [id number] 11:53:42Surgical Pathology Report Case: [id number] Authorizing Provider: Yolanda Lyle MD Collected: 05/03/2021 10:38 AM Ordering Location: [address] Received: 05/03/2021 02:25 PM Service Pathologist: Ciro Diamond MD Specimen: Polyp, Colon - Right/Ascending, x3 PART A RIGHT ASCENDING COLON POLYPX3, POLYPECTOMY:TUBULAR ADENOMA Signing Pathologist Direct Phone Line: [phone] signed by Ciro Diamond MD on 05/04/2021 at 11:53 [id number] colonReceived in formalin labeled the patient's name, accession number and "ascending colon polyp" are multiple chavez soft tissue fragments measuring up to 0.5 cm in greatest dimension which are filtered and submitted in toto in A1.URSULA Martell, HT (ASCP)performedBaylor Kaiser Foundation Hospital, Department of Pathology, [address] [place] [address], DvwrsnK[facility], Department of Pathology, [address] [place] [address], ZvmoaaKaiser Walnut [facility], Department of Pathology, [address] [place] [address], [id number] 11:13:03 Test Item Value Reference Range Interpretation Comments PARTIAL THROMBOPLASTIN TIME > seconds 22.5-36.0 HH (BEAKER) (test code = 760) URINALYSIS [id number] 10:30:34 Test Item Value Reference Range Interpretation Comments RBC UA (BEAKER) (test code = 519) 3 /HPF WBC UA (BEAKER) (test code = 520) 2 /HPF BACTERIA (BEAKER) (test code = None Seen 517) MUCUS (BEAKER) (test code = 1574) Moderate CRYSTALS, URINE (BEAKER) (test None Seen code = 1521) AMORPHOUS CRYSTALS (BEAKER) (test Occasional code = 1584) Radio Station Audio Engineer ID - techURINALYSIS WITH MICROSCOPIC IF [id number] 10:23:22 Test Item Value Reference Range Interpretation [...] = 463) SOURCE(BEAKER) (test code = 2795) Radio Station Audio Engineer ID - [auto]BASIC METABOLIC [id number] 06:55:55 Test Item Value Reference Range Interpretation [...] S NOT APPLICABLE FOR DIALYSIS PATIEN TS. Radio Station Audio Engineer ID - SHANE GCBC (HEMOGRAM ONLY)2021-05-04 06:35:01 [...] 0-0 (BEAKER) (test code = 413) BLOOD [id number] 18:01:00 Test Item Value Reference Range Interpretation Comments CULTURE (BEAKER) (test No growth in 5 days code = 1095) BLOOD [id number] 18:00:59 Test Item Value Reference Range Interpretation Comments CULTURE (BEAKER) (test No growth in 5 days code = 1095) TISSUE [id number] 17:23:09Surgical Pathology Report Case: [id number] Authorizing Provider: Yolanda Lyle MD Collected: 05/02/2021 03:08 PM Ordering Location: [address] Received: 05/03/2021 09:22 AM Service Pathologist: [...] ORINVASIVE CARCINOMA. Signing Pathologist Direct Phone Line: [phone] signed by Ciro Diamond MD on 05/03/2021 at 5:23 [id number], [id number] iron deficiency anemiaA. Duodenum tissue, rule out [...] evaluated Immunohistochemistry technical testing was performed at [facility], Pathology Laboratory where it was developed and [...] qualified to perform high complexity clinical laboratory testing.[facility], Department of Pathology, [address] [place], [place] [address], IzqnjnKaiser [facility], Department of Pathology, [address] [place] [address], XivomrKaiser Walnut Creek [facility], Department of Pathology, [address] [place] [address], MMSPJ METABOLIC PANEL 2021-05-03 06:21:43 Test Item Value [...] S NOT APPLICABLE FOR DIALYSIS PATIEN TS. Radio Station Audio Engineer ID - MARZENA MTSH/FREE T4 IF [id number] 05:55:30 Test Item Value Reference Range Interpretation Comments THYROID STIMULATING HORMONE 0.869 uIU/mL 0.350-4.940 (BEAKER) (test code = 772) Radio Station Audio Engineer ID - MARZENA MB-TYPE NATRIURETIC FACTOR (BNP)2021-05-03 05:32:14 Test Item Value Reference Range Interpretation Comments B-TYPE NATRIURETIC PEPTIDE (BEAKER) 452 pg/mL 0-100 H (test code = 700) Radio Station Audio Engineer ID - MARZENA MCBC (HEMOGRAM ONLY)2021-05-03 05:22:14 [...] CONCENTRATION Adequate (CELLAVISION)(BEAKER) (test code = 3438) Radio Station Audio Engineer ID - Luca Perry comments: Slide comments:CBC W/PLT COUNT & AUTO [id number] 11:59:17 Test Item Value Reference Range Interpretation [...] (BEAKER) (test code = 413) BASIC METABOLIC [id number] 09:20:42 Test Item Value Reference Range Interpretation [...] S NOT APPLICABLE FOR DIALYSIS PATIEN TS. Radio Station Audio Engineer ID - KEARA WPT/[id number] 09:05:40 Test Item Value Reference Range Interpretation [...] 2.5-3.5 for patients with mechanical heart valves.SARS-COV2/RT-PCR ([facility]) 2021-05-01 12:34:25 Test Item Value Reference Range Interpretation Comments SARS-COV2/RT-PCR (test Negative Not Detected, Negative, code = 6634095) See external report for linked test SARS-COV-2 PERFORMING LAB [facility] (test code = 1333527) Negative result for this test determines that [...] 564(g) of the Act.Fact Sheet for Healthcare Providers:https://www.DoorDash/sites/default/files/product/documents/Fact_Shee b_JS_Zhphhabxy_Ueao_NRSM-GqC-8.pdfFact Sheet for Healthcare Patients:https://www.DoorDash/sites/default/files/product/ documents/Wzza_Muvvk_Rnzletbz_Drzw_NRFZ-DxN-1.pdfPerforming Laboratory:[facility], [place] [address]SEY, CHEST, 1 VIEW, NON [id number] 09:29:00Reason for exam:->shortness of breathShould this be performed at the bedside?->Yes [facility] : 1945 Sex: MFINAL REPORT Chest AP portable History provided: Shortness of breath Heart size magnified by projection. Lungs are clear and vascularity normal. Signed: Henry JeffersMDReport Verified Date/Time: 05/01/2021 09:29:27 Reading Location: [facility] Radiology Reading Room CBC (HEMOGRAM ONLY)2021-05-01 06:54:20 [...] (BEAKER) (test code = 413) BASIC METABOLIC [id number] 06:24:43 Test Item Value Reference Range Interpretation [...] S NOT APPLICABLE FOR DIALYSIS PATIEN TS. Radio Station Audio Engineer ID - PIAYA LBASIC METABOLIC [id number] 15:17:17 Test Item Value Reference Range Interpretation [...] S NOT APPLICABLE FOR DIALYSIS PATIEN TS. Radio Station Audio Engineer ID - DBCBC W/PLT COUNT & AUTO [id number] 14:42:15 Test Item Value Reference Range Interpretation [...] (BEAKER) (test code = 2801) HEMOGLOBIN AND [id number] 14:41:31 Test Item Value Reference Range Interpretation Comments HEMOGLOBIN (BEAKER) (test code = 9.7 GM/DL 13.7-17.5 L 410) HEMATOCRIT (BEAKER) (test code = 33.4 % 40.1-51.0 L 411) Radio Station Audio Engineer ID - [id number], [id number] 02:24:00Unlisted Reason for Exam - Click Yes and Enter Reason Below->NoWill this procedure require oral co ntrast?->No[facility] : 1945 Sex: [...] Aman Diane MDReport Verified Date/Time:04/30/2021 02:24:34 HEMOGLOBIN [id number] 09:35:28 Test Item Value Reference Range Interpretation Comments HEMOGLOBIN A1C (BEAKER) (test code = 6.6 % 4.3-6.1 H 368) HEPATIC FUNCTION [id number] 05:59:52 Test Item Value Reference Range Interpretation [...] (test code = 38 U/L 6-55 347) Radio Station Audio Engineer ID - MARZENA [id number] 05:59:50 Test Item Value Reference Range Interpretation Comments MAGNESIUM (BEAKER) (test code = 2.9 mg/dL 1.6-2.6 H 627) Radio Station Audio Engineer ID - MARZENA MLIPID [id number] 05:59:50 Test Item Value Reference Range Interpretation [...] Borderline 130-159 High 160-189 Very High >=190 Radio Station Audio Engineer ID - MARZENA MBASIC METABOLIC [id number] 05:59:49 Test Item Value Reference Range Interpretation [...] S NOT APPLICABLE FOR DIALYSIS PATIEN TS. Radio Station Audio Engineer ID - MARZENA MB-TYPE NATRIURETIC FACTOR (BNP)2021-04-29 05:49:20 Test Item Value Reference Range Interpretation Comments B-TYPE NATRIURETIC PEPTIDE (BEAKER) 329 pg/mL 0-100 H (test code = 700) Radio Station Audio Engineer ID - DBPROTHROMBIN TIME/[id number] 05:43:23 Test Item Value Reference Range Interpretation Comments PROTIME (BEAKER) 15.3 seconds 11.9-14.2 H (test code = 269) INR (BEAKER) (test 1.23 See_Comment [Automat ed message] code = 370) The system Elivar generated this result transmitted ref erence range: [...] (BEAKER) (test code = 2801) BASIC METABOLIC [id number] 20:29:00 Test Item Value Reference Range Interpretation [...] S NOT APPLICABLE FOR DIALYSIS PATIEN TS. Radio Station Audio Engineer ID - [id number] 16:56:00 Test Item Value Reference Range Interpretation Comments FERRITIN (BEAKER) (test code = 13.77 ng/mL 5.00-275.00 361) Radio Station Audio Engineer ID - DBHIGH SENSITIVITY TROPONIN [id number] 16:42:00 Test Item Value Reference Range Interpretation Comments HIGH SENSITIVITY 13 pg/ml See_Comment [Automated message] TROPONIN I (test code = The system which 3408201) generated this result transmitted ref erence range: <=35. Th e reference range was not used to int erpret this result as normal/abnormal . Radio Station Audio Engineer ID - DBThe MACHINE PRESSER STAT High Sensitivity Troponin-I results should be used in conjunctionwith other diagnostic information such as ECG, clinical observations and information, and patient symptoms to aid in the diagnosis of [place].HIGH SENSITIVITY TROPONIN [id number] 16:41:00 Test Item Value Reference Range Interpretation Comments HIGH SENSITIVITY 15 pg/ml See_Comment [Automated message] TROPONIN I (test code = The system which 5593905) generated this result transmitted ref erence range: <=35. Th e reference range was not used to int erpret this result as normal/abnormal . Radio Station Audio Engineer ID - DBThe MACHINE PRESSER STAT High Sensitivity Troponin-I results should be used in conjunctionwith other diagnostic information such as ECG, clinical observations and information, and patient symptoms to aid in the diagnosis of [place].IRON, TIBC, % SAT. (WITHOUT FERRITIN)2021-04-28 16:35:00 Test Item Value Reference Range Interpretation Comments IRON (BEAKER) (test code = 547) 22.0 ug/dL 40.0-160.0 L TOTAL IRON BINDING CAPACITY 473 ug/dL 250-450 H (BEAKER) (test code = 769) IRON % SATURATION (2) (BEAKER) 5 % 20-55 L (test code = 2590) Radio Station Audio Engineer ID - DBHEMOGLOBIN AND [id number] 15:56:00 Test Item Value Reference Range Interpretation Comments HEMOGLOBIN (BEAKER) (test code = 9.2 GM/DL 13.7-17.5 L 410) HEMATOCRIT (BEAKER) (test code = 30.6 % 40.1-51.0 L 411) Radio Station Audio Engineer ID - [id number]
--- NOTE | 2021-07-08 21:52 | RAD REPORT ---
EXAM DESCRIPTION: RAD - Chest Single View - 07/08/2021 9:35 pm CLINICAL HISTORY: SOB Chest pain. COMPARISON: Chest Single View dated 06/30/2021; Chest Single View dated 06/26/2021; Chest Single View dated 06/04/2021; Chest Single View dated 06/03/2021 FINDINGS: Portable technique limits examination quality. Moderate opacity is present in the right lung base suspicious for infiltrate/pneumonia. The heart is mildly enlarged in size. No displaced fractures. IMPRESSION: Moderate right lung base pneumonia.
[2021-07-08] MEDS ORDERED: ONDANSETRON 4 MG/2 ML VIAL ONE (21:53)
[2021-07-08] MEDS ORDERED: LORazepam 2 MG/ML VIAL ONE (22:03)
[2021-07-08 22:04] LABS: Absolute Lymphocytes (CBC) 1.8 K/uL (0.7-4.9); Basophils % 0.6 % (0-1.3); Lymphocytes % 26.4 % (15.3-44.8); MPV 7.6 fL (7.6-11.3); RBC Red Blood Cell Count 3.97 M/uL (4.33-5.43)
[2021-07-08 22:14] LABS: Protime INR 1.22
[2021-07-08] MEDS ORDERED: CEFTRIAXONE 1000 MG/VIAL ONE (22:16)
[2021-07-08] MEDS ORDERED: NA CHLORIDE 0.9% 250 ML ONE ×2 (22:17→22:20)
[2021-07-08] MEDS ORDERED: NA CHLORIDE 0.9% 50 ML ONE (22:17)
[2021-07-08] MEDS ORDERED: AZITHROMYCIN 500 MG INJ IVPB ONE (22:17)
[2021-07-08 22:31] LABS: ALT/SGPT 26 U/L (12-78); AST/SGOT 13 U/L (15-37); Albumin 3.4 g/dL (3.4-5.0); Alkaline Phosphatase 92 U/L (45-117); BUN Blood Urea Nitrogen 10 mg/dL (7-18); Bicarbonate 26 mmol/L (21-32); Bilirubin Direct 0.2 mg/dL (0-0.2); Bilirubin Total 0.4 mg/dL (0.2-1.0); Glucose Level 94 mg/dL (74-106); Magnesium 2.7 mg/dL (1.8-2.4); NT PRO-BNP 2546 pg/mL (<450); Potassium 3.7 mmol/L (3.5-5.1); Protein, Total 7.2 g/dL (6.4-8.2); Sodium Level 142 mmol/L (136-145); Troponin (Emerg Dept Use Only) < 0.02 ng/mL (0.0-0.045)
[2021-07-08 22:38] LABS: Anisocytosis 2+; Blood Morphology Comment NOTED (NOT SEEN); Elliptocytes 2+; Ovalocytes 2+; Platelet Estimate INCR; Polychromasia SLIGHT; White Blood Cell Scan OK (OK)
--- NOTE | 2021-07-08 23:01 | EDPHYS ---
Physician Documentation [facility] Name: Oleg Giles Age: 75 yrs Sex: Male : 1945 Arrival Date: 07/08/2021 Time: 19:08 Bed 19 Private MD: ED Physician Jose Fuentes HPI: 07/08 21:15 This 75 yrs old Male presents to ER via Ambulatory with complaints of cp Breathing Difficulty, Nausea. 21:15 The patient has shortness of breath at rest, while lying flat. Onset: The cp symptoms/episode began/occurred today. Duration: The symptoms are continuous, and are steadily getting worse. Associated signs and symptoms: Pertinent positives: non-productive cough, nausea, Pertinent negatives: chest pain, diaphoresis, dizziness, fever, hemoptysis. Severity of symptoms: in the emergency department the symptoms are unchanged despite home interventions. 21:15 Daughter reports patient recently discharged on 07-04-2021 from [facility]. cp Historical: - Allergies: 19:22 No Known Allergies; vg1 - Home Meds: 19:22 aspirin 81 mg Oral tab daily [Active]; atorvastatin 20 mg Oral tab 1 tab once daily vg1 [Active]; docusate sodium 100 mg Oral cap once daily [Active]; ferrous sulfate 325 mg (65 mg iron) Oral TbEC daily [Active]; furosemide 40 mg Oral tab 1 tab once daily [Active]; metoprolol tartrate 75 mg Oral tab 2 times per day [Active]; omeprazole 20 mg Oral TbEC daily [Active]; - PMHx: 19:22 Arthritis; Atrial fibrillation; Hypertensive disorder; vg1 - PSHx: 19:22 None; vg1 - Immunization history:: Client reports receiving the 2nd dose of the Covid vaccine, Client reports receiving the Charanjit \T\ Charanjit single-dose vaccine. Date received October 17, 2020. - Social history:: Smoking status: Patient denies any tobacco usage or history of. ROS: 21:20 Constitutional: Negative for body aches, chills, fever, poor PO intake. cp 21:20 Eyes: Negative for injury, pain, redness, and discharge. cp 21:20 ENT: Negative for ear pain, sore throat, difficulty swallowing, difficulty handling secretions. 21:20 Cardiovascular: Negative for chest pain, palpitations. 21:20 Respiratory: Positive for cough, shortness of breath, at rest. 21:20 Abdomen/GI: Positive for nausea, Negative for abdominal pain, vomiting, diarrhea. 21:20 Back: Negative for pain at rest, pain with movement. 21:20 Neuro: Negative for altered mental status, dizziness, headache, syncope, weakness. 21:20 All other systems are negative. Exam: 21:25 Constitutional: The patient appears in no acute distress, alert, awake, cp non-diaphoretic, non-toxic, well developed, well nourished, anxious. 21:25 Head/Face: Normocephalic, atraumatic. cp 21:25 Eyes: Periorbital structures: appear normal, Conjunctiva: normal, no exudate, no injection, Sclera: no appreciated abnormality, Lids and lashes: appear normal, bilaterally. 21:25 ENT: External ear(s): are unremarkable, Nose: is normal, Mouth: Lips: moist, Oral mucosa: moist, Posterior pharynx: Airway: no evidence of obstruction, patent. 21:25 Neck: ROM/movement: is normal, is supple, without pain, no range of motions limitations, no meningismus. 21:25 Chest/axilla: Inspection: normal, Palpation: is normal, no crepitus, no tenderness. 21:25 Cardiovascular: Rate: normal, Rhythm: regular, Edema: ankle edema, that is mild, JVD: is not appreciated. 21:25 Respiratory: the patient does not display signs of respiratory distress, Respirations: shallow respirations, that is mild, Breath sounds: decreased breath sounds, are not appreciated, stridor, is not appreciated, wheezing: is not appreciated. 21:25 Abdomen/GI: Inspection: abdomen appears normal, Bowel sounds: active, all quadrants, Palpation: abdomen is soft and non-tender, in all quadrants. 21:25 Back: pain, is absent, ROM is normal. 21:25 Neuro: Orientation: to person, place \T\ time. Mentation: is normal, Cerebellar function: is grossly normal, Motor: moves all fours, strength is normal, Sensation: is normal. 21:40 ECG was reviewed by the Attending Physician. cp Vital Signs: 19:19 BP 117 / 71; Pulse 93; Resp 18; Temp 97.6; Pulse Ox 99% ; Weight 81.65 kg; Height 5 ft. vg1 6 in. (167.64 cm); Pain 0/10; 20:38 BP 128 / 76; Pulse 84; Resp 20 S; Temp 97.8(O); Pulse Ox 98% on R/A; cc4 21:30 BP 128 / 79; Pulse 99; Resp 20 S; Pulse Ox 99% on R/A; cc4 22:30 BP 112 / 79; Pulse 81; Resp 17 S; Pulse Ox 96% on R/A; cc4 23:30 BP 107 / 69; Pulse 83; Resp 18 S; Pulse Ox 96% on R/A; cc4 07/09 00:30 BP 115 / 70; Pulse 84; Resp 17 S; Pulse Ox 96% on R/A; cc4 07/08 19:19 Body Mass Index 29.05 (81.65 kg, 167.64 cm) vg1 MDM: 07/08 21:09 Patient medically screened. cp 22:00 Differential diagnosis: CHF exacerbation, Chronic Obstructive Pulmonary Disease cp Myocardial Infarction pneumonia, Pneumothorax pulmonary edema, Pulmonary Embolism Sepsis Unstable Angina. 23:00 Data reviewed: vital signs, nurses notes, lab test result(s), EKG, radiologic studies, cp plain films. 23:00 Test interpretation: by ED physician or midlevel provider: ECG, plain radiologic cp studies. Physician consultation: Sanjiv Cha was called at 23:00, was contacted at 23:00, regarding admission, to the telemetry unit. patient's condition, and will see patient in ED, shortly. 07/08 21:09 Order name: Basic Metabolic Panel cp 07/08 21: Order name: CBC with Diff; Complete Time: 22:46 cp 07/08 22:47 Interpretation: Normal except: RBC 3.97; HGB 9.6; HCT 32.0; MCH 24.1; MCHC 29.9; PLT cp 526; RDW 21.8. 07/08 21: Order name: LFT's; Complete Time: 22:46 cp 07/08 21: Order name: Magnesium; Complete Time: 22:46 cp 07/08 21: Order name: NT PRO-BNP; Complete Time: 22:46 cp 07/08 22:47 Interpretation: Abnormal: NT PRO-BNP 2546. 07/08 21: Order name: PT-INR; Complete Time: 22:46 cp 07/08 21:09 Order name: Troponin (emerg Dept Use Only); Complete Time: 22:46 07/08 21:10 Order name: Basic Metabolic Panel; Complete Time: 22:46 EDTX 07/08 22:47 Interpretation: Normal except: GFR 66. 07/08 22:06 Order name: Procalcitonin 07/08 22:06 Order name: Lactate; Complete Time: 22:58 07/08 22:06 Order name: Blood Culture Adult (2) 07/08 22:06 Order name: Urine Microscopic Only 07/08 22:06 Order name: Procalcitonin EDTX 07/08 22:12 Order name: CBC Smear Scan; Complete Time: 22:46 EDTX 07/08 21:09 Order name: XRAY Chest (1 view); Complete Time: 22:04 07/08 22:04 Interpretation: Report reviewed. 07/08 21:09 Order name: EKG; Complete Time: 21:10 07/08 21:09 Order name: Cardiac monitoring; Complete Time: 22:00 07/08 21:09 Order name: EKG - Nurse/Tech; Complete Time: 21:41 07/08 21:09 Order name: IV Saline Lock; Complete Time: 21:41 07/08 21:09 Order name: Labs collected and sent; Complete Time: 22:00 07/08 23:08 Order name: Urine Dipstick-Ancillary [facility] 07/08 23:12 Order name: COVID-19/FLU A+B EDTX 07/08 21:09 Order name: O2 Sat Monitoring; Complete Time: 22:00 07/08 22:06 Order name: Urine Dipstick-Ancillary (obtain specimen); Complete Time: 23:08 cp EC:40 Rate is 91 beats/min. Rhythm is irregular. QRS interval is prolonged at 148 msec. QT cp interval is normal. T waves are Inverted in lead aVR. Interpreted by me. Reviewed by me. Administered Medications: 21:50 Drug: Zofran (Ondansetron) 4 mg Route: IVP; Site: right antecubital; cc4 22:10 Drug: Ativan (LORazepam) 0.5 mg Route: IVP; Site: right antecubital; cc4 22:20 Drug: Rocephin (cefTRIAXone) 1 grams Route: IV; Rate: calculated rate; Site: right bb antecubital; 22:42 Drug: Zithromax (azithromycin) 500 mg Route: IVPB; Infused Over: 1 hrs; Site: right bb antecubital; 07/09 00:20 Drug: Lasix (furosemide) 40 mg Route: IVP; Site: right antecubital; cc4 Disposition: 06:55 Co-signature as Attending Physician, Jose Fuentes MD. 7 Disposition Summary: 07/08/21 22:59 Hospitalization Ordered Hospitalization Status: Observation cp Provider: Karl Thakkar cp Condition: Stable cp Problem: new cp Symptoms: have improved cp Bed/Room Type: Standard cp Location: Intensive Care Unit(07/09/21 00:19) Room Assignment: 2-(07/09/21 00:19) mw Diagnosis - Pneumonia due to other specified infectious organisms cp Forms: - Medication Reconciliation Form cp - SBAR form cp Signatures: Dispatcher [employer] EDMS Claire Du RN RN Maria Elena Gonzáles RN Sanjiv Gordon, WEAPONS SPECIALIST-C WEAPONS SPECIALIST-Cla1 Kyle Parks PA PA cp Garcia, Victoria RN RN 1 Jose Fuentes MD MD 7 Ronel Valentin RN RN cc4 Corrections: (The following items were deleted from the chart) 07/08 19:26 19:22 Allergies: Aspirin; vg1 vg1 19:26 19:22 Allergies: NKA; vg1 vg1 23:11 22:49 Influenza Screen (A \T\ B)+BA.LAB.BRZ ordered. EDMS EDMS 23:12 22:49 CORONAVIRUS+MR.LAB.BRZ ordered. EDMS EDMS 07/09 00:19 07/08 22:59 Telemetry/MedSurg (observation) [facility] 07/09 00:19 07/08 22:59 cp 07/09 15:36 15:34 Daughter reports patient recently discharged on 07-04-2021 from [facility]. cp cp
--- NOTE | 2021-07-08 23:01 | ER ---
Nurse's Notes [facility] Name: Oleg Giles Age: 75 yrs Sex: Male : 1945 Arrival Date: 07/08/2021 Time: 19:08 Bed 19 Private MD: Diagnosis: Pneumonia due to other specified infectious organisms Presentation: 07/08 19:19 Chief complaint: Patient's son or daughter states: [place] and weakness began today around vg1 1700. States that also began to have difficulty breathing. Daughter stated "I think its his anxiety and the medication that he is taking that is making him feel this way". Coronavirus screen: Vaccine status: Patient reports receiving the 2nd dose of the covid vaccine. Client denies travel out of the [place] in the last 14 days. Ebola Screen: Patient negative for fever greater than or equal to 101.5 degrees Fahrenheit, and additional compatible Ebola Virus Disease symptoms. Initial Sepsis Screen: Does the patient meet any 2 criteria? No. Patient's initial sepsis screen is negative. Does the patient have a suspected source of infection? No. Patient's initial sepsis screen is negative. Risk Assessment: Do you want to hurt yourself or someone else? Patient reports no desire to harm self or others. Onset of symptoms was July 08, 2021. 19:19 Method Of Arrival: Ambulatory [facility] 19:19 Acuity: ALEXANDREA 3 vg1 Triage Assessment: 19:22 General: Appears in no apparent distress. comfortable, Behavior is calm, cooperative. vg1 Pain: Denies pain. Respiratory: Reports shortness of breath on exertion Onset: The symptoms/episode began/occurred today, the patient has mild shortness of breath. Historical: - Allergies: 19:22 No Known Allergies; vg1 - Home Meds: 19:22 aspirin 81 mg Oral tab daily [Active]; atorvastatin 20 mg Oral tab 1 tab once daily vg1 [Active]; docusate sodium 100 mg Oral cap once daily [Active]; ferrous sulfate 325 mg (65 mg iron) Oral TbEC daily [Active]; furosemide 40 mg Oral tab 1 tab once daily [Active]; metoprolol tartrate 75 mg Oral tab 2 times per day [Active]; omeprazole 20 mg Oral TbEC daily [Active]; - PMHx: 19:22 Arthritis; Atrial fibrillation; Hypertensive disorder; vg1 - PSHx: 19:22 None; vg1 - Immunization history:: Client reports receiving the 2nd dose of the Covid vaccine, Client reports receiving the Charanjit \\T\\ Charanjit single-dose vaccine. Date received October 17, 2020. - Social history:: Smoking status: Patient denies any tobacco usage or history of. Screenin:38 Abuse screen: Denies threats or abuse. Nutritional screening: No deficits noted. cc4 Tuberculosis screening: No symptoms or risk factors identified. Fall Risk None identified. Assessment: 20:38 General: Appears distressed, Behavior is cooperative, anxious. Pain: Denies pain. cc4 Neuro: Level of Consciousness is awake, alert, obeys commands, Oriented to person, place, time, situation. Cardiovascular: Heart tones S1 S2. GI: No deficits noted. Abdomen is obese, Bowel sounds present X 4 quads. Abd is soft and non tender. : No signs and/or symptoms were reported regarding the genitourinary system. EENT: No deficits noted. Eyes clear. Nares are clear Oral mucosa is dry. Derm: No deficits noted. Skin is intact. Musculoskeletal: No deficits noted. Capillary refill < 3 seconds, Range of motion: intact in all extremities. 21:40 Reassessment: No changes from previously documented assessment. # 22 g diffusics cc4 inserted right AC x 1 attempt with blood drawn \\T\\ sent to lab, deyanira. well; c/o nausea with C.URSULA Parks notified. 21:50 Reassessment: Zofran 4 mg given IVP for c/o nausea; no vomiting noted. cc4 07/09 00:20 Reassessment: Patient appears in no apparent distress at this time. Lasix 40 mg given cc4 slow IVP; dozing; arouses easily; voices no complaints; atrial fibrillation con't noted. 00:35 Respiratory: Airway is patent Respiratory effort is even, unlabored, Respiratory cc4 pattern is regular, symmetrical, Breath sounds with wheezes bilaterally. 00:39 Cardiovascular: Rhythm is atrial fibrillation. cc4 01:22 Reassessment: report called to Yoon SEVILLA for room 2. bb Vital Signs: 07/08 19:19 BP 117 / 71; Pulse 93; Resp 18; Temp 97.6; Pulse Ox 99% ; Weight 81.65 kg; Height 5 ft. vg1 6 in. (167.64 cm); Pain 0/10; 20:38 BP 128 / 76; Pulse 84; Resp 20 S; Temp 97.8(O); Pulse Ox 98% on R/A; cc4 21:30 BP 128 / 79; Pulse 99; Resp 20 S; Pulse Ox 99% on R/A; cc4 22:30 BP 112 / 79; Pulse 81; Resp 17 S; Pulse Ox 96% on R/A; cc4 23:30 BP 107 / 69; Pulse 83; Resp 18 S; Pulse Ox 96% on R/A; cc4 07/09 00:30 BP 115 / 70; Pulse 84; Resp 17 S; Pulse Ox 96% on R/A; cc4 07/08 19:19 Body Mass Index 29.05 (81.65 kg, 167.64 cm) vg1 ED Course: 07/08 19:08 Patient arrived in ED. bp1 19:22 Triage completed. vg1 19:22 Arm band placed on. vg1 20:38 Patient has correct armband on for positive identification. Bed in low position. Call cc4 light in reach. Side rails up X2. Daughter with patient. youth nutritional monitor on. Pulse ox on. NIBP on. 20:59 Kyle Parks PA is PHCP. cp 20:59 Jose Fuentes MD is Attending Physician. cp 21:34 XRAY Chest (1 view) In Process Unspecified. EDMS 21:47 Ronel Valentin, DI is Primary Nurse. cc4 21:59 Inserted saline lock: 22 gauge in right antecubital area, using aseptic technique. oe Blood collected. 22:00 Basic Metabolic Panel Sent. cc4 22:00 CBC with Diff Sent. cc4 22:00 LFT's Sent. cc4 22:00 Magnesium Sent. cc4 22:00 NT PRO-BNP Sent. cc4 22:00 PT-INR Sent. cc4 22:00 Troponin (emerg Dept Use Only) Sent. cc4 22:41 Procalcitonin Sent. cc4 22:41 Blood Culture Adult (2) Sent. cc4 22:41 Lactate Sent. cc4 22:41 Procalcitonin Sent. cc4 22:59 Karl Thakkar is Hospitalizing Provider. cp 07/09 00:30 No provider procedures requiring assistance completed. cc4 01:23 Patient admitted, IV remains in place. bb Administered Medications: 07/08 21:50 Drug: Zofran (Ondansetron) 4 mg Route: IVP; Site: right antecubital; cc4 22:10 Drug: Ativan (LORazepam) 0.5 mg Route: IVP; Site: right antecubital; cc4 22:20 Drug: Rocephin (cefTRIAXone) 1 grams Route: IV; Rate: calculated rate; Site: right bb antecubital; 22:42 Drug: Zithromax (azithromycin) 500 mg Route: IVPB; Infused Over: 1 hrs; Site: right bb antecubital; 07/09 00:20 Drug: Lasix (furosemide) 40 mg Route: IVP; Site: right antecubital; cc4 Outcome: 07/08 22:59 Decision to Hospitalize by Provider. cp 07/09 01:22 Admitted to accompanied by tech, via stretcher, with chart, Report called to Yoon miller RN Condition: stable Instructed on follow up and referral plans. 01:42 Patient left the ED. bb Signatures: Dispatcher [employer] EDMS Maria Elena Gonzáles, RN RN bb Kyle Parks, PA PA cp Moy Howe Victoria, RN RN vg1 Susy Foote Christie, RN RN cc4 Corrections: (The following items were deleted from the chart) 07/08 19:26 19:22 Allergies: Aspirin; vg1 vg1 19:26 19:22 Allergies: NKA; vg1 vg1 23:11 23:08 Influenza Screen (A \\T\\ B)+BA.LAB.BRZ drawn and sent. cc4 EDMS 23:12 23:08 CORONAVIRUS+MR.LAB.BRZ drawn and sent. cc4 EDMS
[2021-07-08 23:09] LABS: Urine Blood Negative (Negative); Urine Glucose Negative (Negative); Urine Protein Negative (Negative); Urine Specific Gravity 1.025 (1.005-1.030); Urine pH 5.5 (5.0-7.0)
--- NOTE | 2021-07-08 23:30 | P.HP ---
Certification for Inpatient Patient admitted to: Observation With expected LOS: <2 Midnights Patient will require the following post-hospital care: None Practitioner: I am a practitioner with admitting privileges, knowledge of patient current condition, hospital course, and medical plan of care. Services: Services provided to patient in accordance with Admission requirements found in Title 42 Section 412.3 of the Code of Federal Regulations Patient History Date of Service: 07/08/21 Primary Care Provider: Dr. Deshpande Reason for admission: Pneumonia History of Present Illness: 75-year-old male with history of atrial fibrillation on chronic anticoagulation therapy, chronic diastolic congestive heart failure, iron def iciency anemia with hemorrhoids, GERD, hyperlipidemia. Patient was recently seen and admitted to the hospital for CHF exacerbation/A. fib with rapid ventricular response also noted to have acute on chronic anemia. Patient with known hemorrhoids scheduled for hemorrhoidectomy on 07/11/2021. Patient noticed he had been feeling more short of breath over the course of last couple days presented to the emergency department for evaluation, In ER pt was found to have a moderate right sided pneumonia, elevated BNP to 2546, normal WBC, HGB 9.6, HCT 32, RA SATs in the 90s. ED provider wishes to admit for further evaluation and management. Allergies aspirin Allergy (Mild, Verified 08/04/18 08:41) Nausea/Vomiting Home Medications: Apixaban [Eliquis] 5 mg PO BID 06/26/21 Atorvastatin Calcium 20 mg PO DAILY 06/26/21 Ondansetron [Zofran (Odt)*] 4 mg PO Q12HR PRN 06/26/21 Docusate [Colace Cap*] 100 mg PO DAILY #30 cap 06/27/21 Ferrous Sulfate 325 mg PO BID #60 06/27/21 Furosemide 40 mg PO BID #60 06/27/21 Metoprolol Tartrate [Lopressor*] 75 mg PO BID #90 tab 06/27/21 Omeprazole [Prilosec] 40 mg PO DAILY #30 capsule. 06/27/21 Metoprolol Tartrate [Lopressor] 75 mg PO BID #90 tablet 06/30/21 - Past Medical/Surgical History Diabetic: No -: Atrial fibrillation on chronic anticoagulation therapy -: Hypertension -: History of CVA -: Hyperlipidemia -: Anemia of chronic disease with iron deficiency -: GERD -: Diastolic CHF -: History of Covid infection, vaccinated -: Incision and drainage right thigh -: cataract sx carol Psychosocial/ Personal History: Patient lives at home. He is - Family History Father -: Diabetes, Stroke - Social History Smoking Status: Never smoker Alcohol use: No CD- Drugs: No Caffeine use: Yes Place of Residence: Home Review of Systems 10-point ROS is otherwise unremarkable General: Weakness, Malaise Respiratory: Cough, Shortness of Breath, SOB with Excertion Physical Examination - Physical Exam General: Alert, In no apparent distress, Oriented x3 HEENT: Atraumatic, PERRLA, Mucous membr. moist/pink, EOMI, Sclerae nonicteric Neck: Supple, 2+ carotid pulse no bruit, No LAD, Without JVD or thyroid abnormality Respiratory: Diminished, Crackles/rales Cardiovascular: Regular rate/rhythm, Normal S1 S2, Edema (1+ nonpitting edema bilateral lower extremities) Capillary refill: <2 Seconds Gastrointestinal: Normal bowel sounds, No tenderness Musculoskeletal: No tenderness Integumentary: No rashes Neurological: Normal speech, Normal strength at 5/5 x4 extr, Normal tone, Normal affect - Studies Laboratory Data (last 24 hrs) 07/08/21 21:53: PT 14.1 H, INR 1.22 07/08/21 21:53: WBC 6.70, Hgb 9.6 L, Hct 32.0 L, Plt Count 526 H D 07/08/21 21:53: Sodium 142, Potassium 3.7, BUN 10, Creatinine 1.08, Glucose 94, Magnesium 2.7 H, Total Bilirubin 0.4, AST 13 L, ALT 26, Alkaline Phosphatase 92 Assessment and Plan - Plan Assessment: Moderate right-sided pneumonia Acute on chronic diastolic congestive heart failure Atrial fibrillation on chronic anticoagulation therapy Iron deficiency anemia with hemorrhoids GERD Hyperlipidemia Plan: Moderate right-sided pneumonia: Blood cultures obtained in the emergency department continue with IV antibiotics including Rocephin/Zithromax, incentive spirometry and daily room air saturations. Acute on chronic diastolic congestive heart failure: Continue with IV Lasix 40 mg twice daily, fluid restriction. Atrial fibrillation on chronic anticoagulation therapy: Continue metoprolol 75 mg p.o. twice daily with hold parameters, holding Eliquis at this time given scheduled hemorrhoidectomy in near future. Monitor on telemetry Iron deficiency anemia with hemorrhoids: Stable from previous levels continue home medication monitor H&H GERD: Continue with Protonix 40 mg p.o. daily Hyperlipidemia: Continue Lipitor 20 mg p.o. nightly DVT PPX: Holding Eliquis at this time given scheduled hemorrhoidectomy, continue with SCDs Code status: Full code Discharge Plan: Home Plan to discharge in: 24 Hours - Advance Directives Does patient have a Living Will: No Does patient have a Durable POA for Healthcare: No - Code Status/Comfort Care Code Status Assessed: Yes (Full code) Critical Care: No Time Spent Managing Pts Care (In Minutes): 55
[2021-07-08 23:37] LABS: Urine Bacteria 20-50 /HPF (NONE SEEN); Urine Mucus 3+ /HPF (NONE SEEN); Urine RBC <5 /HPF (NONE SEEN)
[2021-07-09 00:11] LABS: SARS-COV-2 RT PCR POSITIVE (NEGATIVE)
[2021-07-09] MEDS ORDERED: FUROSEMIDE 40 MG/4 ML VIAL ONE (00:21)
[2021-07-09] MEDS ORDERED: ONDANSETRON 4 MG/2 ML VIAL IV PRN (02:12)
[2021-07-09 02:17] VITALS: BMI 29.1
[2021-07-09 05:59] LABS: Absolute Lymphocytes (CBC) 1.6 K/uL (0.7-4.9); Basophils % 0.9 % (0-1.3); Hematocrit 28.8 % (39.6-49.0); Lymphocytes % 27.2 % (15.3-44.8); MPV 8.3 fL (7.6-11.3)
[2021-07-09 06:12] LABS: Albumin 2.8 g/dL (3.4-5.0); Bilirubin Total 0.3 mg/dL (0.2-1.0); C-Reactive Protein 16.6 mg/L (<3.00); Ferritin 30.6 ng/mL (26-388); Magnesium 2.3 mg/dL (1.8-2.4); Potassium 3.4 mmol/L (3.5-5.1); Protein, Total 6.3 g/dL (6.4-8.2)
[2021-07-09] MEDS: PANTOPRAZOLE 40MG TABLET PO SCH (06:25)
[2021-07-09] MEDS: FUROSEMIDE 40 MG/4 ML VIAL IV SCH ×2 (08:52→16:32)
[2021-07-09] MEDS: CEFTRIAXONE 1,000 MG in NA CHLORIDE 0.9% 50 ML IVPB SCH (08:53)
[2021-07-09] MEDS: METOPROLOL TAR 50 MG TAB PO SCH ×2 (08:56→20:58)
[2021-07-09] MEDS ORDERED: POTASSIUM CL SA 10 MEQ TAB PO ONE ×2 (09:00→21:00)
[2021-07-09] MEDS: AZITHROMYCIN IV 500 MG in NA CHLORIDE 0.9% 250 ML IVPB SCH (09:32)
--- NOTE | 2021-07-09 12:05 | P.PN ---
Subjective Date of Service: 07/09/21 Primary Care Provider: Dr. Deshpande Chief Complaint: Pneumonia Patient complaining of shortness of breath. He has been to the ED multiple times this month for similar complaint. He is stable on room air. Noted to be tachypneic. Physical Examination - Vital Signs Temperature: 98.2 F Blood Pressure: 140/69 Pulse: 83 Respirations: 25 Pulse Ox (%): 95 - Studies Laboratory Data (last 24 hrs) 07/08/21 21:53: PT 14.1 H, INR 1.22 07/08/21 21:53: WBC 6.70, Hgb 9.6 L, Hct 32.0 L, Plt Count 526 H D 07/08/21 21:53: Sodium 142, Potassium 3.7, BUN 10, Creatinine 1.08, Glucose 94, Magnesium 2.7 H, Total Bilirubin 0.4, AST 13 L, ALT 26, Alkaline Phosphatase 92 Assessment And Plan - Current Problems (Diagnosis) (1) Pneumonia Current Visit: Yes Status: Acute (2) History of COVID-19 Current Visit: Yes Status: Acute (3) Acute on chronic diastolic heart failure Current Visit: Yes Status: Acute (4) Chronic atrial fibrillation Current Visit: Yes Status: Acute - Plan Physical exam General: Alert, In no apparent distress, Oriented x3 Neck: Supple, No LAD, Without JVD or thyroid abnormality Respiratory: Diminished, Crackles/rales-right base Cardiovascular: Regular rate/rhythm, Normal S1 S2, 1+ nonpitting edema bilateral lower extremities Gastrointestinal: Normal bowel sounds, No tenderness Musculoskeletal: No tenderness Integumentary: No rashes Neurological: Normal speech, Normal strength at 5/5 x4 extr, Normal tone, Normal affect Plan: Continue IV Rocephin and Zithromax. Bronchodilators as needed. Continue IV Lasix. Activity as tolerated. Continue metoprolol and Xarelto for atrial fibrillation.
[2021-07-09] MEDS ORDERED: MELATONIN 5 MG TABLET PO PRN (19:32)
[2021-07-09] MEDS ORDERED: ATORVASTATIN 20 MG TAB PO SCH (21:00)
[2021-07-10 05:16] LABS: Absolute Lymphocytes (CBC) 1.5 K/uL (0.7-4.9); Basophils % 1.3 % (0-1.3); Hematocrit 30.1 % (39.6-49.0); Lymphocytes % 25.6 % (15.3-44.8); MPV 7.9 fL (7.6-11.3); RBC Red Blood Cell Count 3.72 M/uL (4.33-5.43)
[2021-07-10 05:22] LABS: Albumin 2.8 g/dL (3.4-5.0); Bilirubin Total 0.4 mg/dL (0.2-1.0); C-Reactive Protein 15.9 mg/L (<3.00); Ferritin 25.5 ng/mL (26-388); Magnesium 2.5 mg/dL (1.8-2.4); Potassium 3.8 mmol/L (3.5-5.1); Protein, Total 6.2 g/dL (6.4-8.2)
[2021-07-10] MEDS: PANTOPRAZOLE 40MG TABLET PO SCH (06:09)
[2021-07-10] MEDS ORDERED: POTASSIUM CL SA 10 MEQ TAB PO ONE (06:10)
[2021-07-10 09:01] VITALS: O2SAT 96
[2021-07-10] MEDS: CEFTRIAXONE 1,000 MG in NA CHLORIDE 0.9% 50 ML IVPB SCH (09:18)
[2021-07-10] MEDS: AZITHROMYCIN IV 500 MG in NA CHLORIDE 0.9% 250 ML IVPB SCH (09:18)
[2021-07-10] MEDS: FUROSEMIDE 40 MG/4 ML VIAL IV SCH (09:18)
[2021-07-10 09:19] VITALS: BP 128/71
[2021-07-10] MEDS: METOPROLOL TAR 50 MG TAB PO SCH (09:19)
--- NOTE | 2021-07-10 10:21 | P.DS ---
Admission Date: 07/09/21 Discharge Date: 07/10/21 Primary Care Provider: Dr. Deshpande Disposition: ROUTINE DISCHARGE Discharge Condition: FAIR Reason for Admission: Pneumonia - Problems (1) Pneumonia Current Visit: Yes Status: Acute (2) History of COVID-19 Current Visit: Yes Status: Acute (3) Acute on chronic diastolic heart failure Current Visit: Yes Status: Acute (4) Chronic atrial fibrillation Current Visit: Yes Status: Acute Brief History of Present Illness: 75-year-old male with history of atrial fibrillation on chronic anticoagulation therapy, chronic diastolic congestive heart failure, iron deficiency anemia with hemorrhoids, GERD, hyperlipidemia. Patient was recently seen and admitted to the hospital for CHF exacerbation/A. fib with rapid ventricular response also noted to have acute on chronic anemia. Patient with known hemorrhoids scheduled for hemorrhoidectomy on 07/11/2021. Patient noticed he had been feeling more short of breath over the course presented to the emergency department for evaluation, In ER pt was found to have a moderate right sided pneumonia, elevated BNP to 2546, normal WBC, HGB 9.6, HCT 32, RA SATs in the 90s. Patient was admitted for further management. Hospital Course: Patient admitted to the medical floor and treated with IV Rocephin and Zithromax for pneumonia. He was also treated with IV Lasix for CHF exacerbation. He did not require oxygen. Patient symptoms improved with treatment. His heart rate was stable. Today patient reports significant improvement in shortness of breath. Patient is discharged with Levaquin to complete treatment for pneumonia. Vital Signs/Physical Exam: Temp Pulse Resp BP Pulse Ox 97.5 F 97 H 13 128/71 96 07/10/21 04:00 07/10/21 09:19 07/10/21 04:00 07/10/21 09:19 07/10/21 04:00 General: Alert, In no apparent distress, Oriented x3 HEENT: Mucous membr. moist/pink Neck: JVD not distended Respiratory: Clear to auscultation bilaterally, Normal air movement Cardiovascular: No edema, Normal S1 S2, Irregular heart rate/rhythm Capillary refill: <2 Seconds Gastrointestinal: Soft and benign, Non-distended Musculoskeletal: No swelling Integumentary: No rashes Neurological: Normal strength at 5/5 x4 extr Laboratory Data at Discharge: WBC 6.00 K/uL (4.3-10.9) 07/10/21 04:41 Hgb 9.0 g/dL (13.6-17.9) L 07/10/21 04:41 Hct 30.1 % (39.6-49.0) L 07/10/21 04:41 Plt Count 490 K/uL (152-406) H 07/10/21 04:41 PT 14.1 SECONDS (9.5-12.5) H 07/08/21 21:53 INR 1.22 07/08/21 21:53 Sodium 144 mmol/L (136-145) 07/10/21 04:41 Potassium 3.8 mmol/L (3.5-5.1) 07/10/21 04:41 BUN 12 mg/dL (7-18) 07/10/21 04:41 Creatinine 1.03 mg/dL (0.55-1.3) 07/10/21 04:41 Glucose 86 mg/dL (74-106) 07/10/21 04:41 Magnesium 2.5 mg/dL (1.8-2.4) H 07/10/21 04:41 Total Bilirubin 0.4 mg/dL (0.2-1.0) 07/10/21 04:41 AST 7 U/L (15-37) L 07/10/21 04:41 ALT 17 U/L (12-78) 07/10/21 04:41 Alkaline Phosphatase 80 U/L (45-117) 07/10/21 04:41 Home Medications: Apixaban [Eliquis] 5 mg PO BID 06/26/21 Atorvastatin Calcium 20 mg PO DAILY 06/26/21 Docusate [Colace Cap*] 100 mg PO DAILY #30 cap 06/27/21 Ferrous Sulfate 325 mg PO BID #60 06/27/21 Metoprolol Tartrate [Lopressor] 75 mg PO BID #90 tablet 06/30/21 Benzonatate 100 mg PO QID 07/09/21 Furosemide 40 mg PO DAILY 07/09/21 Omeprazole [Prilosec] 20 mg PO DAILY 07/09/21 Zinc Sulfate [Zinc Sulfate*] 220 mg PO DAILY 07/09/21 levoFLOXacin [Levaquin] 750 mg PO DAILY #7 tab 07/10/21 New Medications: levoFLOXacin [Levaquin] 750 mg PO DAILY #7 tab Diet: AHA Activity: Ad zheng Followup: Willy Deshpande MD [Primary Care Provider] - 1-2 Weeks Time spent managing pt's care (in minutes): 34
[2021-07-10 10:28] VITALS: TEMP 97.4
--- NOTE | 2021-07-12 08:15 | EKG ---
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
== END 2021-07-10 11:50 | disposition home or self-care (01) | DRG 177 ==
LOC: ER 19:05 → ERHOLD 23:34 → 3RD-ICU 07-09 01:23 → OBSVTOIN 07-09 12:10
PROVIDERS: ADMIT Internal Medicine; ATTEND Internal Medicine
DX: U07.1 COVID-19 (principal); I50.33 Acute on chronic diastolic (congestive) heart failure; J15.9 Unspecified bacterial pneumonia; I48.20 Chronic atrial fibrillation, unspecified; I11.0 Hypertensive heart disease with heart failure; K21.9 Gastro-esophageal reflux disease without esophagitis; D50.9 Iron deficiency anemia, unspecified; K64.9 Unspecified hemorrhoids; E78.5 Hyperlipidemia, unspecified; Z86.73 Personal history of transient ischemic attack (TIA), and cerebral infarction without residual deficits; Z79.01 Long term (current) use of anticoagulants
CPT/HCPCS: 0240U; 36415; 71045; 80048; 80053; 80076; 81003; 81015; 82728; 83605; 83735; 83880; 84132; 84145; 84484; 85025; 85610; 86140; 87040; 87086; 87088; 87205; 93005; 94010; 96374; 96375; 99285; G0378; J0456; J1940; J2405; J7050

== ENCOUNTER 2021-07-12 15:04 | Emergency (ER) | payer OTHER ==
--- OUTSIDE RECORDS SUMMARY | 2021-07-12 15:13 | XMS REPORT | Continuity of Care Document ---
:1945 Author Organization [facility] t Address [address] [place] [address] Care Team Providers Name Role Phone Kai Montez MD Primary Care Physician [phone] ELLA Attending Clinician Unavailable BRIDGER Attending [...] Admitting Clinician Unavailable SARBJIT Admitting Clinician Unavailable Hreb Nath MD Admitting Clinician Payers Payer Name Policy Type Policy Number Effective Date Expiration Date S sue [employer] [id number] 2020 HMO 00:00:00 TOTALCARE SNP [id number] 2020 MEDICARE O-CIGNA 00:00:00 Problems Condition Condition Condition Status Onset Resolution Last Treating Co mments Source Name Details Category Date Date Treatment Clinician Date No known No known Disease Unive rs active active ity of problems problems [facility] Allergies, Adverse Reactions, Alerts Allergy Allergy Status Severity Reaction(s) Onset Inactive Treating Comm ents Source Name Type Date Date Clinician Aspirin Propensi Active 2020-08 [facility] ty to 1-04 College adverse 00:00: [...] Tobacco use and 2021-06-22 2021-06-22 Never used [facility] Co llege of exposure 00:00:00 00:00:00 Medicine Sex Ass[birth year] [facility] Co llege of 00:00:00 00:00:00 Medicine Smoking Status Start Date Stop Date Source Never smoker [facility] o f Medicine Former smoker 2019-04-22 00:00:00 2019-04-22 00:00:00 [facility] Medications Ordered Filled Start Stop Current Ordering Indication Dosage Frequency Signature Comments Components Source Medication Medication Date Date Medication? Clinician (SIG) Name Name atorbradford 2020-08 Yes 20mg Take 20 mg [facility] n (LIPITOR) 1-04 by mouth. Col lege 20 MG 08:27: of tablet 20 Medicin e omeprazole 2020-08 Yes 40mg Take 1 [facility] (PRILOSEC) 1-04 capsule by Col lege 40 MG 00:00: mouth two of capsule 00 times Medicin daily. e benzonatate 2020-08 Yes [facility] (TESSALON) 0-25 [place] 100 mg 00:00: of capsule 00 Medicin e docusate 2020-08 Yes [facility] sodium 0-17 College (COLACE) 00:00: of 100 MG 00 Medicin capsule e metoprolol 2020-08 Yes [facility] (LOPRESSOR) 0-17 College 25 MG 00:00: of tablet 00 Medicin e promethazin 2020-08 Yes [facility] e 0-11 College (PHENERGAN) 00:00: of [...] by mouth ity of tablet 14:02: at [place] 00 bedtime. [facility] clopidogrel Yes 75mg Take 75 mg Univers 75 mg 9-04 by mouth ity of tablet 14:02: daily. [facility] valsartan Yes 320mg Take 320 Uni vers 320 mg 9-04 mg by ity of tablet 14:02: mouth [place] 00 daily. [facility] Branch atorvastati Yes 20mg Take 20 mg Univers n 20 mg 9-04 by mouth ity of tablet 14:02: at [place] 00 bedtime. [facility] clopidogrel Yes 75mg Take 75 mg Univers 75 mg 9-04 by mouth ity of tablet 14:02: daily. [facility] valsartan Yes 320mg Take 320 Uni vers 320 mg 9-04 mg by ity of tablet 14:02: mouth [place] 00 daily. [facility] atorvastati Yes 20mg Take 20 mg Univers n 20 mg 9-04 by mouth ity of tablet 14:02: at [place] 00 bedtime. [facility] clopidogrel Yes 75mg Take 75 mg Univers 75 mg 9-04 by mouth ity of tablet 14:02: daily. [facility] valsartan Yes 320mg Take 320 Uni vers 320 mg 9-04 mg by ity of tablet 14:02: mouth [place] 00 daily. [facility] Branch ondansetron Yes 4mg [...] kg Systolic blood 2021-06-22 13:19:00 140 mm[Hg] [facility] pressure Medicine Diastolic blood 2021-06-22 13:19:00 82 mm[Hg] [facility] of pressure Medicine Heart rate 2021-06-22 13:19:00 86 /min [facility] Body temperature 2021-06-22 13:19:00 36.83 Lalita [facility] Body height 2021-06-22 13:19:00 167.6 cm [facility] Body weight 2021-06-22 13:19:00 84.732 kg [facility] BMI 2021-06-22 13:19:00 30.15 kg/m2 [facility] WEIGHT 2021-05-23 22:20:00 83.643 kg WEIGHT 2021-05-23 15:04:00 92.08 kg HEIGHT 2021-05-23 15:04:00 167.6 cm WEIGHT 2021-05-23 22:20:00 83.643 kg WEIGHT 2021-05-23 15:04:00 92.08 kg HEIGHT 2021-05-23 15:04:00 167.6 cm HEIGHT 2021-05-20 02:03:00 167.6 cm WEIGHT 2021-05-20 [...] blood 2019-04-22 13:42:00 140 mm[Hg] Univer sity [facility] Diastolic blood 2019-04-22 13:42:00 73 [facility]Hg[facility] 2019-04-22 13:42:00 56 /min [facility] Respiratory rate 2019-04-22 13:42:00 16 /min [facility] Oxygen saturation in 2019-04-22 13:42:00 99 /min [facility] Arterial blood by [facility] Pulse oximetry Branch Body temperature 2019-04-22 13:27:00 36.33 Lalita [facility] height 2019-04-17 16:00:00 162.6 cm [facility] Body weight 2019-04-17 16:00:00 91.173 kg [facility] BMI 2019-04-17 16:00:00 34.50 kg/m2 [facility] Systolic blood 2019-04-22 13:42:00 140 mm[Hg] Univer sity [facility] Diastolic blood 2019-04-22 13:42:00 73 mm[Hg] Unive rsity of pressure [facility] Heart rate 2019-04-22 13:42:00 56 /min [facility] Respiratory rate 2019-04-22 13:42:00 16 /min [facility] Oxygen saturation in 2019-04-22 13:42:00 99 /min [facility] Arterial blood by [facility] Pulse oximetry [place] Body temperature 2019-04-22 13:27:00 36.33 Lalita [facility] Body height 2019-04-17 16:00:00 162.6 cm [facility] Body weight 2019-04-17 16:00:00 91.173 kg [facility] BMI 2019-04-17 16:00:00 34.50 kg/m2 [facility] Procedures Procedure Date / Time Performed Performing Clinician Sourc e EGD (ENDO) 2019-04-22 12:55:[address] [facility] - ADC 2019-04-22 05:01:00 Doctor Unassigned, No [facility] Plan of Care Planned Activity Planned Date Details Comments Source Future Scheduled 2021-06-22 CBC W/AUTO DIFF Ordered: [facility] ollege Test 09:11:41 WITH PLATELETS 06/22/2021 of Medicine [code = 34702-5] Future Scheduled 2021-06-22 FERRITIN [code = Ordered: [facility] Test 09:11:41 48711-3] 06/22/2021 of Medicine Future Scheduled 2021-06-22 IRON+TIBC+%SAT Ordered: [facility] Co llege Test 09:11:41 [code = NOCPT] 06/22/2021 of Medicine Future Scheduled 2021-06-22 TETANUS SHOT [facility] Addison ege Test 08:19:01 (ADULT) [code = of Medicine TETANUS SHOT (ADULT)] Future Scheduled 2021-06-22 Hepatitis C [facility] Test 08:19:01 screening of Medicine (procedure) [code = 452381475] Future Scheduled 2021-06-22 ZOSTER VACCINE (1 [facility] Test 08:19:01 of 2) [code = of Medicine ZOSTER VACCINE (1 of 2)] Future Scheduled 2021-06-22 FALL SCREEN [code [facility] Test 08:19:01 = FALL SCREEN] of Medicine Future Scheduled 2021-06-22 PNEUMOVAX >=65 [facility] llege Test 08:19:01 (PPSV23) [code = of Medicine PNEUMOVAX >=65 (PPSV23)] Future Scheduled 2021-06-22 MEDICARE IPPE [facility] Col lege Test 08:19:01 (WELCOME TO of Medicine MEDICARE) [code = MEDICARE IPPE (WELCOME TO MEDICARE)] Future Scheduled 2021-06-22 FLU VACCINE > 6 [facility] C ollege Test 08:19:01 MONTHS [code = FLU of Medici ne VACCINE > 6 MONTHS] Encounters Start End Encounter Admission Attending Care Care Encounter Source Date/Time Date/Time Type Type Clinicians Facility Department ID 2021-05-28 Inpatient ER ELLA [facility] Gastro [id number] [facility] 12:00:47 TEDDYLUIS 2021-07-03 2021-07-04 Outpatient ER DARLENE SPARKS [facility] Emergency 20 [id number] [facility] 12:24:00 14:27:00 2021-06-22 2021-06-22 Office DANIEL [facility] [id number] [facility] 08:13:37 11:39:39 Visit RICK AMBULATOR 350.1.13.21 College Y 0.2.7.2.686 of [id number] Medi eddie 325 e 2021-05-23 2021-05-26 Inpatient ER GISSELLND, [facility] Emergency 20 [id number] [facility] 15:12:00 15:03:00 MALKA 2021-05-23 2021-05-23 Outpatient [facility] [id number] [facility] 00:00:00 23:59:00 Colleg e of Medicin e 2021-05-20 2021-05-20 Emergency ER [facility] Emergency [id number] [facility] 01:57:00 01:57:00 2021-05-15 2021-05-15 Outpatient [facility] [id number] [facility] 00:00:00 23:59:00 Colleg e of Medicin e 2021-05-15 2021-05-15 Emergency ER [facility] Emergency [id number] [facility] 12:00:00 12:00:00 2021-04-29 2021-04-29 Outpatient BCM [facility] [id number] [facility] 00:00:00 23:59:00 Colleg e of Medicin e 2021-04-28 2021-04-28 Outpatient BCM [place] [id number] [facility] 12:32:00 23:59:00 Colleg e of Medicin e 2019-04-22 2019-04-22 [facility] [id number] [facility] 06:15:00 08:56:00 Encounter e, Katy Loyola 350.1.13.10 it[place] [id number] [address] 2019-04-22 2019-04-22 [facility] [id number] 06:15:00 08:56:00 Encounter eKaty 350.1.13.10 [place] 4.2.7.2.686 Surgical [id number] [place] [address] 2019-04-22 2019-04-22 Anesthesia [facility] [id number] [facility] 07:54:00 08:13:00 Jaden Loyola 350.1.13.10 i [place] [id number] [address] 2019-04-22 2019-04-22 Anesthesia [facility] [id number] 07:54:00 08:13:00 Jaden Loyola 350.1.13.10 [place] 4.2.7.2.686 Surgical [id number] [place] [id number] 2019-04-22 2019-04-22 Orders Doctor MURILLO [id number] [place] [address] 00:00:00 00:00:00 Only Unassigned, ANA MARIA 350.1.13.10 ity of [place] [facility] 4.2.7.2.686 [place] as [id number] [address] 2019-04-22 2019-04-22 Orders Doctor MURILLO [id number] 00:00:00 00:00:00 Only Unassigned, ANA MARIA 350.1.13.10 [place] [facility] 4.2.7.2.686 [id number] Results Test Description Test Time Test Comments Results Result Sourc e Comments FL, ESOPHAGUS 2021-07-04 [facility] 11:34:00 studyReason for exam:->POST-OP CHI PROBLEMpost [facility] endocscopy 1 CENTERName: month ago CADEN [...] [place] Verified Date/Time: 07/04/2021 11:34:49 Reading Location: [address] Consult Reading Room C METABOLIC PANEL [...] NOT 1092) ACCURATE CRE ATININE CLEARANCE IN NV EDICTING GLOMERULAR FILT RATION RATE. ESTIMATED GFR IS NOT APPLICABLE FOR DIALYSIS PATIENTS. Animal Behaviorist ID - MARZENA MSARS-COV2/RT-PCR ([facility])2021-07-03 17:50:45 Test Item Value Reference Range Interpretation Comments SARS-COV2/RT-PCR Negative Negative The SARS-Co V-2 target (test code = nucleic acids a re not 2945713) detected in thi s specimen. Negative result [...] revoked sooner. Fact Sheet for Healthcare Providers: https://www.Media Armor.com/Documents/Xpert%20Xpress%20SARS%20CoV-2/Fact%20Sheets/302-3802%20SARS-COV -2%20HEALTHCARE%20PROVIDERS%20FACT%20SHEET.pdf Fact Sheet for Healthcare Patients: https://www.Estrogen Gene Test.Make Meaning/Documents/Xpert %20Xpress%20SARS%20CoV-2/Fact%20Sheets/302-3801%78CFDL-KCP-0%20PATIENT%20FACT%20 SHEET.qrbI-[id number] 17:04:25 Test Item Value Reference Range Interpretation [...] of thrombosis is within 95-100% range.BLOOD GAS, [id number] 16:22:57 Test Item Value Reference Range Interpretation [...] code = 1819) 21.0 RAD, CHEST, 2 [id number] 14:40:00Reason for exam:->CHEST PAIN since endoscopy a month [facility]ocscopy 1 [facility] 1945 Sex: MFINAL REPORT EXAM: Chest one view COMPARISON: May 15, 2021 CLINICAL HISTORY: Chest pain FINDINGS: Minimal blunting of bilateral posterior costophrenic sulci are noted which may represent small effusions. The cardiac size remains enlarged. There is no evidence of pulmonary consolidation or pneumothorax. The regional osseous structures are unremarkable. Signed:Mati Ackermaneport Verified Date/Time: 07/03/2021 14:40:03 [id number] 14:12:25 Test Item Value Reference Range Interpretation Comments LIPASE (BEAKER) (test code = 749) 22 U/L 8-78 Animal Behaviorist ID - DBCOMPREHENSIVE METABOLIC [id number] 14:12:24 Test Item Value Reference Range Interpretation [...] S NOT APPLICABLE FOR DIALYSIS PATIEN TS. Animal Behaviorist ID - DBHIGH SENSITIVITY TROPONIN [id number] 14:10:43 Test Item Value Reference Range Interpretation Comments HIGH SENSITIVITY 7 pg/ml See_Comment [Automated message] TROPONIN I (test code = The system which 2986360) generated this result transmitted ref erence range: <=35. Th e reference range was not used to interpr et this result as normal/abnormal . Animal Behaviorist ID - RMThe MOLD CAPPER STAT High Sensitivity Troponin-I results should be used in conjunctionwith other diagnostic information such as ECG, clinical observations and information, and patient symptoms to aid in the diagnosis of NM.B-TYPE NATRIURETIC FACTOR (BNP)2021-07-03 14:09:26 Test Item Value Reference Range Interpretation Comments B-TYPE NATRIURETIC PEPTIDE (BEAKER) 515 pg/mL 0-100 H (test code = 700) Animal Behaviorist ID - RMCBC W/PLT COUNT & AUTO [id number] 13:39:07 Test Item Value Reference Range Interpretation [...] (BEAKER) (test code = 2801) HEMOGLOBIN AND [id number] 05:07:16 Test Item Value Reference Range Interpretation Comments HEMOGLOBIN (BEAKER) (test code = 7.9 GM/DL 13.7-17.5 L 410) HEMATOCRIT (BEAKER) (test code = 26.4 % 40.1-51.0 L 411) Animal Behaviorist ID - [id number] AND [id number] 18:44:57 Test Item Value Reference Range Interpretation Comments HEMOGLOBIN (BEAKER) (test code = 8.7 GM/DL 13.7-17.5 L 410) HEMATOCRIT (BEAKER) (test code = 29.7 % 40.1-51.0 L 411) Animal Behaviorist ID - [id number] AND [id number] 11:29:37 Test Item Value Reference Range Interpretation Comments HEMOGLOBIN (BEAKER) (test code = 8.3 GM/DL 13.7-17.5 L 410) HEMATOCRIT (BEAKER) (test code = 28.5 % 40.1-51.0 L 411) Animal Behaviorist ID - [id number] AND [id number] 04:51:37 Test Item Value Reference Range Interpretation Comments HEMOGLOBIN (BEAKER) (test code = 7.9 GM/DL 13.7-17.5 L 410) HEMATOCRIT (BEAKER) (test code = 26.9 % 40.1-51.0 L 411) Animal Behaviorist ID - [id number] AND [id number] 16:42:26 Test Item Value Reference Range Interpretation Comments HEMOGLOBIN (BEAKER) (test code = 8.6 GM/DL 13.7-17.5 L 410) HEMATOCRIT (BEAKER) (test code = 29.4 % 40.1-51.0 L 411) Animal Behaviorist ID - 6000BASIC METABOLIC [id number] 09:04:40 Test Item Value Reference Range Interpretation [...] S NOT APPLICABLE FOR DIALYSIS PATIEN TS. Animal Behaviorist ID - ROSIANGHEMOGLOBIN AND [id number] 08:41:52 Test Item Value Reference Range Interpretation Comments HEMOGLOBIN (BEAKER) (test code = 7.6 GM/DL 13.7-17.5 L 410) HEMATOCRIT (BEAKER) (test code = 26.5 % 40.1-51.0 L 411) Animal Behaviorist ID - [id number]-COV2/RT-PCR ([facility])2021-05-23 19:59:55 Test Item Value Reference Range Interpretation Comments SARS-COV2/RT-PCR Negative Negative The SARS-Co V-2 target (test code = nucleic acids a re not 6692235) detected in thi s specimen. Negative result [...] revoked sooner. Fact Sheet for Healthcare Providers: https://www.Media Armor.Make Meaning/Documents/Xpert%20Xpress%20SARS%20CoV-2/Fact%20Sheets/383-2146%20SARS-COV -2%20HEALTHCARE%20PROVIDERS%20FACT%20SHEET.pdf Fact Sheet for Healthcare Patients: https://www.Estrogen Gene Test.Make Meaning/Documents/Xpert %20Xpress%20SARS%20CoV-2/Fact%20Sheets/302-3801%57XQZI-RKK-1%20PATIENT%20FACT%20 SHEET.pdfCOMPREHENSIVE METABOLIC [id number] 17:17:21 Test Item Value Reference Range Interpretation [...] S NOT APPLICABLE FOR DIALYSIS PATIEN TS. Animal Behaviorist ID - LUDA [id number] 17:17:21 Test Item Value Reference Range Interpretation Comments LIPASE (BEAKER) (test code = 749) 31 U/L 8-78 Animal Behaviorist ID - LUDA [id number] 16:55:15 Test Item Value Reference Range Interpretation [...] (BEAKER) (test code = 2801) BASIC METABOLIC [id number] 04:38:30 Test Item Value Reference Range Interpretation [...] S NOT APPLICABLE FOR DIALYSIS PATIEN TS. Animal Behaviorist ID - DBCBC W/PLT COUNT & AUTO [id number] 04:21:40 Test Item Value Reference Range Interpretation [...] (BEAKER) (test code = 2801) BASIC METABOLIC [id number] 07:03:04 Test Item Value Reference Range Interpretation [...] S NOT APPLICABLE FOR DIALYSIS PATIEN TS. Animal Behaviorist ID - PIAYA LCBC (HEMOGRAM ONLY)2021-05-17 04:38:47 [...] (BEAKER) (test code = 413) HEMOGLOBIN AND [id number] 20:18:40 Test Item Value Reference Range Interpretation Comments HEMOGLOBIN (BEAKER) (test code = 7.7 GM/DL 13.7-17.5 L 410) HEMATOCRIT (BEAKER) (test code = 25.7 % 40.1-51.0 L 411) Animal Behaviorist ID - 6000BASIC METABOLIC [id number] 06:32:43 Test Item Value Reference Range Interpretation [...] S NOT APPLICABLE FOR DIALYSIS PATIEN TS. Animal Behaviorist ID - MARZENA MCBC W/PLT COUNT & AUTO [id number] 06:09:12 Test Item Value Reference Range Interpretation [...] (BEAKER) (test code = 2801) HEMOGLOBIN AND [id number] 00:13:44 Test Item Value Reference Range Interpretation Comments HEMOGLOBIN (BEAKER) (test code = 8.0 GM/DL 13.7-17.5 L 410) HEMATOCRIT (BEAKER) (test code = 28.1 % 40.1-51.0 L 411) Animal Behaviorist ID - [id number]-COV2/RT-PCR ([facility])2021-05-15 18:07:21 Test Item Value Reference Range Interpretation Comments SARS-COV2/RT-PCR Negative Negative The SARS-Co V-2 target (test code = nucleic acids a re not 2350828) detected in thi s specimen. Negative result [...] individuals suspected of CO VID-19 by their [facility] provider. This test has been authorized [...] revoked sooner. Fact Sheet for Healthcare Providers: https://www.Media Armor.Make Meaning/Documents/Xpert%20Xpress%20SARS%20CoV-2/Fact%20Sheets/3023802%20SARS-COV -2%20HEALTHCARE%20PROVIDERS%20FACT%20SHEET.pdf Fact Sheet for Healthcare Patients: https://www.Sfletter.com/Documents/Xpert %20Xpress%20SARS%20CoV-2/Fact%20Sheets/3023801%89LLEA-LTB-9%20PATIENT%20FACT%20 SHEET.pdfHIGH SENSITIVITY TROPONIN [id number] 15:44:19 Test Item Value Reference Range Interpretation Comments HIGH SENSITIVITY 6 pg/ml See_Comment [Automated message] TROPONIN I (test code = The system which 6049733) generated this result transmitted ref erence range: <=35. Th e reference range was not used to interpr et this result as normal/abnormal . Animal Behaviorist ID - DBThe MOLD CAPPER STAT High Sensitivity Troponin-I results should be used in conjunctionwith other diagnostic information such as ECG, clinical observations and information, and patient symptoms to aid in the diagnosis of NM.[id number] 15:36:53 Test Item Value Reference Range Interpretation Comments MAGNESIUM (BEAKER) (test code = 2.1 mg/dL 1.6-2.6 627) Animal Behaviorist ID - [id number] 15:36:53 Test Item Value Reference Range Interpretation Comments PHOSPHORUS (BEAKER) (test code = 3.3 mg/dL 2.3-4.7 604) Animal Behaviorist ID - DBCOMPREHENSIVE METABOLIC [id number] 15:36:52 Test Item Value Reference Range Interpretation [...] S NOT APPLICABLE FOR DIALYSIS PATIEN TS. Animal Behaviorist ID - DBCBC W/PLT COUNT & AUTO [id number] 15:12:30 Test Item Value Reference Range Interpretation [...] = 2801) RAD, CHEST, 1 VIEW, NON [id number] 13:55:00Reason for exam:->MELENAReason for exam:->GENERAL ILLNESSReason for exam:->GENERALIZED WEAKNESS, NOT ASSOCIATED WITH EXTREMITIESShould this be performed at the bedside?->Yes [facility] 1945 Sex: MFINAL REPORT INDICATION: MELENAGENERAL ILLNESSGENERALIZED WEAKNESS, NOT ASSOCIATED WITH EXTREMITIES COMPARISON: 05/01/2021 TECHNIQUE: Single frontal view of the chest. FINDINGS: Lungs and pleura: Clear lungs. No effusion.Heart and mediastinum: Normal heart size. Unremarkable mediastinal contours.Osseous structures: No acute abnormality.Other: None. IMPRESSION: No acute intrathoracic abnormality. Signed: Gaby Scott Verified Date/Time: 05/15/2021 13:55:04 Reading Location: [facility] Radiology Reading Room [id number] 07:19:33 Test Item Value Reference Range Interpretation Comments MAGNESIUM (BEAKER) (test code = 2.4 mg/dL 1.6-2.6 627) Animal Behaviorist ID - PIAYA LBASIC METABOLIC [id number] 07:19:32 Test Item Value Reference Range Interpretation [...] S NOT APPLICABLE FOR DIALYSIS PATIEN TS. Animal Behaviorist ID - PIAYA LCBC W/PLT COUNT & AUTO [id number] 06:34:22 Test Item Value Reference Range Interpretation [...] (test code = 2801) UREA NITROGEN, RANDOM [id number] 17:46:02 Test Item Value Reference Range Interpretation Comments UREA NITROGEN URINE (BEAKER) (test 404 mg/dL code = 538) Reference Range: No NormalsOperator ID - BSSODIUM, RANDOM [id number] 17:46:01 Test Item Value Reference Range Interpretation Comments SODIUM URINE (BEAKER) (test code = 101 meq/L 243) Reference Range: No NormalsOperator ID - BSCREATININE, RANDOM [id number] 17:46:00 Test Item Value Reference Range Interpretation Comments CREATININE URINE (BEAKER) (test 61.7 mg/dL code = 375) Reference Range: No NormalsOperator ID - BSURINALYSIS WITH MICROSCOPIC IF [id number] 16:41:11 Test Item Value Reference Range Interpretation [...] = 463) SOURCE(BEAKER) (test code = 2795) Animal Behaviorist ID - [auto]BLOOD [id number] 11:01:01 Test Item Value Reference Range Interpretation Comments CULTURE (BEAKER) (test No growth in 5 days code = 1095) BLOOD [id number] 11:01:01 Test Item Value Reference Range Interpretation Comments CULTURE (BEAKER) (test No growth in 5 days code = 1095) The specimen volume collected for this blood culture was below the optimum (10 mL per bottle or 20 mL total). Use of lower volumes may adversely affect recovery and/or detection times of some organisms.[id number] 05:38:27 Test Item Value Reference Range Interpretation Comments MAGNESIUM (BEAKER) (test code = 2.3 mg/dL 1.6-2.6 627) Animal Behaviorist ID - PIAYA LBASIC METABOLIC [id number] 05:38:26 Test Item Value Reference Range Interpretation [...] S NOT APPLICABLE FOR DIALYSIS PATIEN TS. Animal Behaviorist ID - PIAYA LPROTHROMBIN TIME/[id number] 05:23:25 Test Item Value Reference Range Interpretation Comments PROTIME (BEAKER) 16.9 seconds 11.9-14.2 H (test code = 759) INR (BEAKER) (test 1.39 See_Comment [Automat ed message] code = 370) The system Viewglass generated this result transmitted ref erence range: [...] (BEAKER) (test code = 2801) COMPREHENSIVE METABOLIC [id number] 16:17:38 Test Item Value Reference Range Interpretation [...] S NOT APPLICABLE FOR DIALYSIS PATIEN TS. Animal Behaviorist ID - DBSARS-COV2/RT-PCR ([facility])2021-05-08 12:32:16 Test Item Value Reference Range Interpretation Comments SARS-COV2/RT-PCR (test Negative Not Detected, Negative, code = 5779304) See external report for linked test SARS-COV-2 PERFORMING LAB [facility] (test code = 6428863) Negative result for this test determines that [...] 564(g) of the Act.Fact Sheet for Healthcare Providers:https://www.Starriser/sites/default/files/product/documents/Fact_Shee b_EL_Phexkwyml_Wstu_VTAE-ItN-0.pdfFact Sheet for Healthcare Patients:https://www.Starriser/sites/default/files/product/ documents/Nfah_Wzrsa_Bnhmifxi_Figy_IWPE-KuS-0.pdfPerforming Laboratory:[address] Streetstaci NgMem[place], [place] [address]DXD (HEMOGRAM ONLY) 2021-05-08 06:41:47 Test Item Value [...] code = 413) [facility] IMAGING, MULTI, PHARM, [id number] 13:41:00Unlisted Reason for Exam - Click Yes and Enter Reason Below->No [facility] 1945 Sex: MFINAL REPORT PROCEDURE: Rest/Stress MYOCARDIAL PERFUSION SPECT with regadenoson\\XA9\\ CPT CODE: 66626 INDICATION: Chest pain PROTOCOL: 10.6 mCi of [...] (BEAKER) (test code = 413) BASIC METABOLIC [id number] 06:10:10 Test Item Value Reference Range Interpretation [...] S NOT APPLICABLE FOR DIALYSIS PATIEN TS. Animal Behaviorist ID - SHANE GCBC (HEMOGRAM ONLY)2021-05-06 05:35:30 [...] 0-0 H (BEAKER) (test code = 413) [id number] 17:04:33 Test Item Value Reference Range Interpretation Comments PARTIAL THROMBOPLASTIN TIME 75.5 seconds 22.5-36.0 H (BEAKER) (test code = 760) [id number] 08:48:29 Test Item Value Reference Range Interpretation Comments PARTIAL THROMBOPLASTIN TIME 39.1 seconds 22.5-36.0 H (BEAKER) (test code = 760) [id number] 07:02:01 Test Item Value Reference Range Interpretation [...] (BEAKER) (test code = 413) BASIC METABOLIC [id number] 06:36:45 Test Item Value Reference Range Interpretation [...] S NOT APPLICABLE FOR DIALYSIS PATIEN TS. Animal Behaviorist ID - SHANE [id number] 22:11:03 Test Item Value Reference Range Interpretation Comments PARTIAL THROMBOPLASTIN TIME 88.2 seconds 22.5-36.0 H (BEAKER) (test code = 760) PERIPHERAL BLOOD SMEAR - PATHOLOGIST [id number] 18:22:51 Test Item Value Reference Range Interpretation Comments PERIPHERAL SMR Microcytic hypochromic REVIEW (BEAKER) anemia with marked (test code = 2640) anisopoikilocytosis and polychromasia, consistent with history of LEESA. Leukocytosis with predominantly mature granulocytes. No blasts seen. Adequate platelets with unremarkable morphology. [id number] Andreina Schmidt, 112 (BEAKER) (test M.D code [...] (BEAKER) (test code 2+ moderate = 966) [id number] 12:13:05 Test Item Value Reference Range Interpretation Comments PARTIAL THROMBOPLASTIN TIME 55.6 seconds 22.5-36.0 H (BEAKER) (test code = 760) TISSUE [id number] 11:53:42Surgical Pathology Report Case: [id number] Authorizing Provider: Yolanda Lyle MD Collected: 05/03/2021 10:38 AM Ordering Location: [address] Received: 05/03/2021 02:25 PM Service Pathologist: Ciro Diamond MD Specimen: Polyp, Colon - Right/Ascending, x3 PART A RIGHT ASCENDING COLON POLYPX3, POLYPECTOMY:TUBULAR ADENOMA Signing Pathologist Direct Phone Line: [phone] signed by Ciro Diamond MD on 05/04/2021 at 11:53 [id number] colonReceived in formalin labeled the patient's name, accession number and "ascending colon polyp" are multiple chavez soft tissue fragments measuring up to 0.5 cm in greatest dimension which are filtered and submitted in toto in A1.URSULA Martell, HT (ASCP)performedBaylor Los [facility], Department of Pathology, [address] [place] [address], [facility], [facility] of [facility], [address] [place] [address], [facility], Department of Pathology, [address] [place] [address], [id number] 11:13:03 Test Item Value Reference Range Interpretation Comments PARTIAL THROMBOPLASTIN TIME > seconds 22.5-36.0 HH (BEAKER) (test code = 760) URINALYSIS [id number] 10:30:34 Test Item Value Reference Range Interpretation Comments RBC UA (BEAKER) (test code = 519) 3 /HPF WBC UA (BEAKER) (test code = 520) 2 /HPF BACTERIA (BEAKER) (test code = None Seen 517) MUCUS (BEAKER) (test code = 1574) Moderate CRYSTALS, URINE (BEAKER) (test None Seen code = 1521) AMORPHOUS CRYSTALS (BEAKER) (test Occasional code = 1584) Animal Behaviorist ID - techURINALYSIS WITH MICROSCOPIC IF [id number] 10:23:22 Test Item Value Reference Range Interpretation [...] = 463) SOURCE(BEAKER) (test code = 2795) Animal Behaviorist ID - [auto]BASIC METABOLIC [id number] 06:55:55 Test Item Value Reference Range Interpretation [...] S NOT APPLICABLE FOR DIALYSIS PATIEN TS. Animal Behaviorist ID - SHANE GCBC (HEMOGRAM ONLY)2021-05-04 06:35:01 [...] 0-0 (BEAKER) (test code = 413) BLOOD [id number] 18:01:00 Test Item Value Reference Range Interpretation Comments CULTURE (BEAKER) (test No growth in 5 days code = 1095) BLOOD [id number] 18:00:59 Test Item Value Reference Range Interpretation Comments CULTURE (BEAKER) (test No growth in 5 days code = 1095) TISSUE [id number] 17:23:09Surgical Pathology Report Case: [id number] Authorizing Provider: Yolanda Lyle MD Collected: 05/02/2021 03:08 PM Ordering Location: [address] Received: 05/03/2021 09:22 AM Service Pathologist: [...] ORINVASIVE CARCINOMA. Signing Pathologist Direct Phone Line: [phone] signed by Ciro Diamond MD on 05/03/2021 at 5:23 [id number], [id number] iron deficiency anemiaA. Duodenum tissue, rule out [...] evaluated Immunohistochemistry technical testing was performed at [facility], Pathology Laboratory where it was developed and [...] qualified to perform high complexity clinical laboratory testing.[facility], Department of Pathology, [address] [place], [place] [id number], [facility], Department of Pathology, [address] [place] [address], [facility], Department of Pathology, [address] [place] [address], CNBLT METABOLIC PANEL 2021-05-03 06:21:43 Test Item Value [...] S NOT APPLICABLE FOR DIALYSIS PATIEN TS. Animal Behaviorist ID - MARZENA MTSH/FREE T4 IF [id number] 05:55:30 Test Item Value Reference Range Interpretation Comments THYROID STIMULATING HORMONE 0.869 uIU/mL 0.350-4.940 (BEAKER) (test code = 772) Animal Behaviorist ID - MARZENA MB-TYPE NATRIURETIC FACTOR (BNP)2021-05-03 05:32:14 Test Item Value Reference Range Interpretation Comments B-TYPE NATRIURETIC PEPTIDE (BEAKER) 452 pg/mL 0-100 H (test code = 700) Animal Behaviorist ID - MARZENA MCBC (HEMOGRAM ONLY)2021-05-03 05:22:14 [...] CONCENTRATION Adequate (CELLAVISION)(BEAKER) (test code = 3438) Animal Behaviorist ID - Luca Perry comments: Slide comments:CBC W/PLT COUNT & AUTO [id number] 11:59:17 Test Item Value Reference Range Interpretation [...] (BEAKER) (test code = 413) BASIC METABOLIC [id number] 09:20:42 Test Item Value Reference Range Interpretation [...] S NOT APPLICABLE FOR DIALYSIS PATIEN TS. Animal Behaviorist ID - KEARA WPT/[id number] 09:05:40 Test Item Value Reference Range Interpretation [...] (test Negative Not Detected, Negative, code = 1087518) See external report for linked test SARS-COV-2 PERFORMING LAB [facility] (test code = 5892490) Negative result for this test determines that [...] 564(g) of the Act.Fact Sheet for Healthcare Providers:https://www.[employer]/sites/default/files/product/documents/Fact_Shee k_RR_Vnnxjuozv_Yncw_LFDF-WmE-3.pdfFact Sheet for Healthcare Patients:https://www.[employer]/sites/default/files/product/ documents/Ruvb_Aplmd_Sniaozje_Hyqk_QUUS-QrL-9.pdfPerforming Laboratory:[facility], [place] [address]RBS, CHEST, 1 VIEW, NON [id number] 09:29:00Reason for exam:->shortness of breathShould this be performed at the bedside?->Yes [facility] 1945 Sex: MFINAL REPORT Chest AP portable History provided: Shortness of breath Heart size magnified by projection. Lungs are clear and vascularity normal. Signed: Henry JeffersMDReport Verified Date/Time: 05/01/2021 09:29:27 Reading Location: [facility] Radiology Reading Room CBC (HEMOGRAM ONLY)2021-05-01 [...] (BEAKER) (test code = 413) BASIC METABOLIC [id number] 06:24:43 Test Item Value Reference Range Interpretation [...] S NOT APPLICABLE FOR DIALYSIS PATIEN TS. Animal Behaviorist ID - PIAYA LBASIC METABOLIC [id number] 15:17:17 Test Item Value Reference Range Interpretation [...] S NOT APPLICABLE FOR DIALYSIS PATIEN TS. Animal Behaviorist ID - DBCBC W/PLT COUNT & AUTO [id number] 14:42:15 Test Item Value Reference Range Interpretation [...] (BEAKER) (test code = 2801) HEMOGLOBIN AND [id number] 14:41:31 Test Item Value Reference Range Interpretation Comments HEMOGLOBIN (BEAKER) (test code = 9.7 GM/DL 13.7-17.5 L 410) HEMATOCRIT (BEAKER) (test code = 33.4 % 40.1-51.0 L 411) Animal Behaviorist ID - [id number], [id number] 02:24:00Unlisted Reason for Exam - Click Yes and Enter Reason Below->NoWill this procedure require oral co ntrast?->NoCH[facility] : 1945 Sex: [...] Aman Diane MDReport Verified Date/Time:04/30/2021 02:24:34 HEMOGLOBIN [id number] 09:35:28 Test Item Value Reference Range Interpretation Comments HEMOGLOBIN A1C (BEAKER) (test code = 6.6 % 4.3-6.1 H 368) HEPATIC FUNCTION [id number] 05:59:52 Test Item Value Reference Range Interpretation [...] (test code = 38 U/L 6-55 347) Animal Behaviorist ID - MARZENA [id number] 05:59:50 Test Item Value Reference Range Interpretation Comments MAGNESIUM (BEAKER) (test code = 2.9 mg/dL 1.6-2.6 H 627) Animal Behaviorist ID - MARZENA MLIPID [id number] 05:59:50 Test Item Value Reference Range Interpretation [...] Borderline 130-159 High 160-189 Very High >=190 Animal Behaviorist ID - MARZENA MBASIC METABOLIC [id number] 05:59:49 Test Item Value Reference Range Interpretation [...] S NOT APPLICABLE FOR DIALYSIS PATIEN TS. Animal Behaviorist ID - MARZENA MB-TYPE NATRIURETIC FACTOR (BNP)2021-04-29 05:49:20 Test Item Value Reference Range Interpretation Comments B-TYPE NATRIURETIC PEPTIDE (BEAKER) 329 pg/mL 0-100 H (test code = 700) Animal Behaviorist ID - DBPROTHROMBIN TIME/[id number] 05:43:23 Test Item Value Reference Range Interpretation Comments PROTIME (BEAKER) 15.3 seconds 11.9-14.2 H (test code = 229) INR (BEAKER) (test 1.23 See_Comment [Automat ed message] code = 370) The system Viewglass generated this result transmitted ref erence range: [...] (BEAKER) (test code = 2801) BASIC METABOLIC [id number] 20:29:00 Test Item Value Reference Range Interpretation [...] S NOT APPLICABLE FOR DIALYSIS PATIEN TS. Animal Behaviorist ID - [id number] 16:56:00 Test Item Value Reference Range Interpretation Comments FERRITIN (BEAKER) (test code = 13.77 ng/mL 5.00-275.00 361) Animal Behaviorist ID - DBHIGH SENSITIVITY TROPONIN [id number] 16:42:00 Test Item Value Reference Range Interpretation Comments HIGH SENSITIVITY 13 pg/ml See_Comment [Automated message] TROPONIN I (test code = The system which [id number]) generated this result transmitted ref erence range: <=35. Th e reference range was not used to int erpret this result as normal/abnormal . Animal Behaviorist ID - DBThe MOLD CAPPER STAT High Sensitivity Troponin-I results should be used in conjunctionwith other diagnostic information such as ECG, clinical observations and information, and patient symptoms to aid in the diagnosis of NM.HIGH SENSITIVITY TROPONIN [id number] 16:41:00 Test Item Value Reference Range Interpretation Comments HIGH SENSITIVITY 15 pg/ml See_Comment [Automated message] TROPONIN I (test code = The system which [id number]) generated this result transmitted ref erence range: <=35. Th e reference range was not used to int erpret this result as normal/abnormal . Animal Behaviorist ID - DBThe MOLD CAPPER STAT High Sensitivity Troponin-I results should be used in conjunctionwith other diagnostic information such as ECG, clinical observations and information, and patient symptoms to aid in the diagnosis of NM.IRON, TIBC, % SAT. (WITHOUT FERRITIN)2021-04-28 16:35:00 Test Item Value Reference Range Interpretation Comments IRON (BEAKER) (test code = 547) 22.0 ug/dL 40.0-160.0 L TOTAL IRON BINDING CAPACITY 473 ug/dL 250-450 H (BEAKER) (test code = 769) IRON % SATURATION (2) (BEAKER) 5 % 20-55 L (test code = 2590) Animal Behaviorist ID - DBHEMOGLOBIN AND [id number] 15:56:00 Test Item Value Reference Range Interpretation Comments HEMOGLOBIN (BEAKER) (test code = 9.2 GM/DL 13.7-17.5 L 410) HEMATOCRIT (BEAKER) (test code = 30.6 % 40.1-51.0 L 411) Animal Behaviorist ID - [id number]
[2021-07-12] MEDS ORDERED: ONDANSETRON 4 MG/2 ML VIAL ONE (15:50)
[2021-07-12] MEDS ORDERED: ONDANSETRON 4 MG (ODT) TAB ONE ×2 (15:58→18:56)
[2021-07-12] MEDS ORDERED: NA CHLORIDE 0.9% 1,000 ML ONE (17:46)
[2021-07-12 18:11] LABS: Absolute Lymphocytes (CBC) 1.7 K/uL (0.7-4.9); Basophils % 1.2 % (0-1.3); Hematocrit 30.2 % (39.6-49.0); MPV 7.2 fL (7.6-11.3); RBC Red Blood Cell Count 3.77 M/uL (4.33-5.43)
[2021-07-12 18:28] LABS: Bilirubin Direct 0.1 mg/dL (0-0.2); Bilirubin Total 0.3 mg/dL (0.2-1.0); Potassium 3.4 mmol/L (3.5-5.1); Protein, Total 6.9 g/dL (6.4-8.2)
[2021-07-12] MEDS ORDERED: POTASSIUM CL SA 10 MEQ TAB PO ONE (18:30)
--- NOTE | 2021-07-12 18:37 | RAD REPORT ---
EXAM DESCRIPTION: RAD - Chest Single View - 07/12/2021 5:56 pm CLINICAL HISTORY: COUGH Chest pain. COMPARISON: Chest Single View dated 07/08/2021; Chest Single View dated 06/30/2021; Chest Single Vie w dated 06/26/2021; Chest Single View dated 06/04/2021 FINDINGS: Portable technique limits examination quality. The previously noted right lung base infiltrate has moderately improved since prior study. Mild bilat eral interstitial lung opacities likely represent mild pulmonary edema or interstitial pneumonia. The heart is moderately enlarged in size. Moderate hiatal hernia.
--- NOTE | 2021-07-12 18:51 | ER ---
Nurse's Notes [facility] Name: Oleg Giles Age: 75 yrs Sex: Male : 1945 Arrival Date: 07/12/2021 Time: 15:08 Bed 10 Private MD: Diagnosis: Dehydration;Nausea Presentation: 07/12 15:40 Chief complaint: Patient states: I was in ICU for covid this past week with pneumonia. ld1 I was sent home with antibiotics and I am still not feeling good. Pt reports nausea. Coronavirus screen: Client presents with at least one sign or symptom that may indicate coronavirus-19. Standard/surgical mask placed on the client. Ebola Screen: No symptoms or risks identified at this time. Initial Sepsis Screen: Does the patient meet any 2 criteria? No. Patient's initial sepsis screen is negative. Does the patient have a suspected source of infection? No. Patient's initial sepsis screen is negative. Risk Assessment: Do you want to hurt yourself or someone else? Patient reports no desire to harm self or others. Onset of symptoms was July 12, 2021. 15:40 Method Of Arrival: Ambulatory ld1 15:40 Acuity: ALEXANDREA 3 ld1 Triage Assessment: 15:44 General: Appears in no apparent distress. comfortable, Behavior is calm, cooperative, ld1 appropriate for age. Pain: Denies pain. EENT: No signs and/or symptoms were reported regarding the EENT system. Neuro: Level of Consciousness is awake, alert, obeys commands, Oriented to person, place, time, situation, Appropriate for age. Neuro: Reports dizziness, weakness. Cardiovascular: Capillary refill < 3 seconds Patient's skin is warm and dry. Respiratory: Airway is patent Respiratory effort is even, unlabored, Respiratory pattern is regular, symmetrical. GI: Abdomen is round non-distended, Reports nausea. : No signs and/or symptoms were reported regarding the genitourinary system. Derm: No signs and/or symptoms reported regarding the dermatologic system. Musculoskeletal: No signs and/or symptoms reported regarding the musculoskeletal system. Historical: - Allergies: 15:44 No Known Allergies; ld1 - Home Meds: 15:44 aspirin 81 mg Oral tab daily [Active]; atorvastatin 20 mg Oral tab 1 tab once daily ld1 [Active]; docusate sodium 100 mg Oral cap once daily [Active]; ferrous sulfate 325 mg (65 mg iron) Oral TbEC daily [Active]; furosemide 40 mg Oral tab 1 tab once daily [Active]; metoprolol tartrate 75 mg Oral tab 2 times per day [Active]; omeprazole 20 mg Oral TbEC daily [Active]; Levofloxacin Oral [Active]; Eliquis oral [Active]; Docusate Sodium Oral [Active]; - PMHx: 15:44 Atrial fibrillation; Hypercholesterolemia; Hypertensive disorder; Congestive heart ld1 failure; Heart murmur; Pneumonia; - PSHx: 15:44 None; ld1 - Immunization history:: Adult Immunizations up to date, Client reports receiving the 1st dose of the Covid vaccine. - Social history:: Smoking status: Patient denies any tobacco usage or history of. Patient/guardian denies using alcohol. Screenin:32 Abuse screen: Denies threats or abuse. Nutritional screening: No deficits noted. ll1 Tuberculosis screening: No symptoms or risk factors identified. 19:00 Fall Risk IV access (20 points). Total Orellana Fall Scale indicates No Risk (0-24 pts). ll1 Assessment: 17:32 Reassessment: No changes from previously documented assessment. Patient and/or family ll1 updated on plan of care and expected duration. Pain level reassessed. Patient is alert, oriented x 3, equal unlabored respirations, skin warm/dry/pink. GI: Abdomen is round Bowel sounds present X 4 quads. nausea is better now. 18:30 Reassessment: No changes from previously documented assessment. Patient and/or family ll1 updated on plan of care and expected duration. Pain level reassessed. Patient is alert, oriented x 3, equal unlabored respirations, skin warm/dry/pink. Patient states feeling better. 19:00 Reassessment: No changes from previously documented assessment. Patient and/or family ll1 updated on plan of care and expected duration. Pain level reassessed. Patient is alert, oriented x 3, equal unlabored respirations, skin warm/dry/pink. Vital Signs: 15:40 BP 121 / 76; Pulse 114; Resp 19; Temp 98.1(O); Pulse Ox 98% on R/A; Weight 81.65 kg; ld1 Height 5 ft. 6 in. (167.64 cm); Pain 0/10; 17:32 BP 124 / 80; Pulse 95; Resp 18; ll1 18:59 BP 125 / 74; Pulse 91; Resp 18; ll1 15:40 Body Mass Index 29.05 (81.65 kg, 167.64 cm) ld1 ED Course: 15:08 Patient arrived in ED. mr 15:43 Triage completed. ld1 15:44 Arm band placed on right wrist. ld1 17:27 Patient placed in an exam room, on a stretcher. ll1 17:28 Brad Arita PA is PHCP. jr8 17:28 Augusto Cassidy MD is Attending Physician. jr8 17:32 Patient has correct armband on for positive identification. Bed in low position. Call ll1 light in reach. Side rails up X 1. Pulse ox on. NIBP on. 17:38 Monica Wood, DI is Primary Nurse. ll1 17:56 XRAY Chest (1 view) In Process Unspecified. EDMS 17:58 Inserted saline lock: 20 gauge in left antecubital area, using aseptic technique. ll1 18:59 No provider procedures requiring assistance completed. IV discontinued, intact, ll1 bleeding controlled, No redness/swelling at site. Pressure dressing applied. Administered Medications: 15:57 Not Given (Other Intervention Used): Zofran (Ondansetron) 4 mg IVP once; over 2 minutes ld1 16:00 Drug: Ondansetron 4 mg Route: PO; ll1 17:32 Follow up: Response: No adverse reaction ll1 17:58 Drug: NS 0.9% 1000 ml Route: IV; Rate: 1000 ml; Site: left antecubital; ll1 19:00 Follow up: Response: No adverse reaction; IV Status: Completed infusion; IV Intake: ll1 1000ml 18:34 Drug: Potassium Chloride 20 mEq Route: PO; ll1 19:01 Follow up: Response: No adverse reaction ll1 Intake: 19:00 IV: 1000ml; Total: 1000ml. ll1 Outcome: 18:51 Discharge ordered by . jr8 18:59 Discharged to home ambulatory. ll1 18:59 Condition: stable 18:59 Discharge instructions given to patient, family, Instructed on discharge instructions, follow up and referral plans. medication usage, Demonstrated understanding of instructions, follow-up care, medications, Prescriptions given X 1. 19:01 Patient left the ED. ll1 Signatures: Dispatcher [employer] KOFI Lyric Pastor mr Brad Arita PA PA jr8 Monica Wood RN RN ll1 Angela Williamson RN RN ld1 Corrections: (The following items were deleted from the chart) : 15:44 PMHx: Hypertensive disorder; ld1 ld1 15:44 PMHx: Arthritis; ld1 ld1 15:44 PMHx: Atrial fibrillation; ld1 ld1
--- NOTE | 2021-07-12 18:51 | EDPHYS ---
Physician Documentation [facility] Name: Oleg Giles Age: 75 yrs Sex: Male : 1945 Arrival Date: 07/12/2021 Time: 15:08 Bed 10 Private MD: ED Physician Augusto Cassidy HPI: 07/12 17:47 This 75 yrs old Male presents to ER via Ambulatory with complaints of Nausea. jr8 17:47 This is a 75-year-old male patient with a recent history of Covid with Covid pneumonia jr8 that was released from the ICU few days ago. Patient currently still on antibiotics but denying better. Over the last couple days had still been complaining of nausea and decreased appetite along with general fatigue. Called her his daughter today to bring him back to the hospital for further evaluation as he does not feel like the nausea portion of his symptoms is getting better along with his chronic fatigue.. Historical: - Allergies: 15:44 No Known Allergies; ld1 - Home Meds: 15:44 aspirin 81 mg Oral tab daily [Active]; atorvastatin 20 mg Oral tab 1 tab once daily ld1 [Active]; docusate sodium 100 mg Oral cap once daily [Active]; ferrous sulfate 325 mg (65 mg iron) Oral TbEC daily [Active]; furosemide 40 mg Oral tab 1 tab once daily [Active]; metoprolol tartrate 75 mg Oral tab 2 times per day [Active]; omeprazole 20 mg Oral TbEC daily [Active]; Levofloxacin Oral [Active]; Eliquis oral [Active]; Docusate Sodium Oral [Active]; - PMHx: 15:44 Atrial fibrillation; Hypercholesterolemia; Hypertensive disorder; Congestive heart ld1 failure; Heart murmur; Pneumonia; - PSHx: 15:44 None; ld1 - Immunization history:: Adult Immunizations up to date, Client reports receiving the 1st dose of the Covid vaccine. - Social history:: Smoking status: Patient denies any tobacco usage or history of. Patient/guardian denies using alcohol. ROS: 17:47 Cardiovascular: Negative for chest pain, palpitations, and edema, Respiratory: Negative jr8 for shortness of breath, cough, wheezing, and pleuritic chest pain, Back: Negative for injury and pain, MS/Extremity: Negative for injury and deformity, Skin: Negative for injury, rash, and discoloration, Neuro: Negative for headache, weakness, numbness, tingling, and seizure. 17:47 Constitutional: Positive for fatigue. 17:47 Abdomen/GI: Positive for nausea, Negative for abdominal pain, vomiting, diarrhea. Exam: 17:47 Constitutional: This is a well developed, well nourished patient who is awake, alert, jr8 and in no acute distress. ENT: Nares patent. No nasal discharge, no septal abnormalities noted. Tympanic membranes are normal and external auditory canals are clear. Oropharynx with no redness, swelling, or masses, exudates, or evidence of obstruction, uvula midline. Mucous membranes moist. Neck: Trachea midline, no thyromegaly or masses palpated, and no cervical lymphadenopathy. Supple, full range of motion without nuchal rigidity, or vertebral point tenderness. No Meningismus. Cardiovascular: Regular rate and rhythm with a normal S1 and S2. No gallops, murmurs, or rubs. Normal PMI, no JVD. No pulse deficits. Respiratory: Lungs have equal breath sounds bilaterally, clear to auscultation and percussion. No rales, rhonchi or wheezes noted. No increased work of breathing, no retractions or nasal flaring. Abdomen/GI: Soft, non-tender, with normal bowel sounds. No distension or tympany. No guarding or rebound. No evidence of tenderness throughout. Back: No spinal tenderness. No costovertebral tenderness. Full range of motion. Skin: Warm, dry with normal turgor. Normal color with no rashes, no lesions, and no evidence of cellulitis. MS/ Extremity: Pulses equal, no cyanosis. Neurovascular intact. Full, normal range of motion. Neuro: Awake and alert, GCS 15, oriented to person, place, time, and situation. Cranial nerves II-XII grossly intact. Motor strength 5/5 in all extremities. Sensory grossly intact. Vital Signs: 15:40 BP 121 / 76; Pulse 114; Resp 19; Temp 98.1(O); Pulse Ox 98% on R/A; Weight 81.65 kg; ld1 Height 5 ft. 6 in. (167.64 cm); Pain 0/10; 17:32 BP 124 / 80; Pulse 95; Resp 18; ll1 18:59 BP 125 / 74; Pulse 91; Resp 18; ll1 15:40 Body Mass Index 29.05 (81.65 kg, 167.64 cm) ld1 MDM: 17:28 Patient medically screened. jr8 18:50 Data reviewed: vital signs, nurses notes, lab test result(s), radiologic studies, plain jr8 films. Data interpreted: Pulse oximetry: on room air is 98 %. Interpretation: normal. Counseling: I had a detailed discussion with the patient and/or guardian regarding: the historical points, exam findings, and any diagnostic results supporting the discharge/admit diagnosis, lab results, radiology results, the need for outpatient follow up, a family practitioner, to return to the emergency department if symptoms worsen or persist or if there are any questions or concerns that arise at home. 07/12 15:52 Order name: Basic Metabolic Panel; Complete Time: 18:28 ld1 07/12 15:52 Order name: CBC with Diff ld1 07/12 15:52 Order name: Hepatic Function; Complete Time: 18:28 [facility] 07/12 15:52 Order name: Lipase; Complete Time: 18:28 ld1 07/12 17:39 Order name: Magnesium jr8 07/12 17:41 Order name: Magnesium; Complete Time: 18:28 [facility] 07/12 15:52 Order name: IV Saline Lock ld1 07/12 15:52 Order name: Labs collected and sent; Complete Time: 17:38 ld1 07/12 17:40 Order name: XRAY Chest (1 view); Complete Time: 18:46 jr8 Administered Medications: 15:57 Not Given (Other Intervention Used): Zofran (Ondansetron) 4 mg IVP once; over 2 minutes ld1 16:00 Drug: Ondansetron 4 mg Route: PO; ll1 17:32 Follow up: Response: No adverse reaction ll1 17:58 Drug: NS 0.9% 1000 ml Route: IV; Rate: 1000 ml; Site: left antecubital; ll1 19:00 Follow up: Response: No adverse reaction; IV Status: Completed infusion; IV Intake: ll1 1000ml 18:34 Drug: Potassium Chloride 20 mEq Route: PO; ll1 19:01 Follow up: Response: No adverse reaction ll1 Disposition: 19:01 Co-signature as Attending Physician, Augusto Cassidy MD. rn Disposition Summary: 07/12/21 18:51 Discharge Ordered Location: Home jr8 Problem: new jr8 Symptoms: have improved jr8 Condition: Stable jr8 Diagnosis - Dehydration jr8 - Nausea jr8 Followup: jr8 - With: Private Physician - When: 2 - 3 days - Reason: Recheck today's complaints, Continuance of care, Re-evaluation by your physician Discharge Instructions: - Discharge Summary Sheet jr8 - Dehydration, Adult jr8 - Nausea, Adult jr8 Forms: - Medication Reconciliation Form jr8 - Thank You Letter jr8 - Antibiotic Education jr8 - Prescription Opioid Use jr8 Prescriptions: - Zofran 4 mg Oral Tablet - take 1 tablet by ORAL route every 12 hours As needed; 20 tablet; Refills: 0, jr8 Product Selection Permitted Signatures: Dispatcher [employer] EDMS Augusto Cassidy MD MD rn Roszak, Josh, PA PA jr8 Monica Wood RN RN ll1 Angela Williamson RN RN ld1 Corrections: (The following items were deleted from the chart) 15:46 15:44 PMHx: Hypertensive disorder; ld1 ld1 15:46 15:44 PMHx: Arthritis; ld1 ld1 15:46 15:44 PMHx: Atrial fibrillation; ld1 ld1
[2021-07-12 19:13] VITALS: TEMP 98.1; O2SAT 98
[2021-07-12 19:15] VITALS: BP 125/74
[2021-07-12 19:56] LABS: Anisocytosis 1+; Blood Morphology Comment NOTED (NOT SEEN); Ovalocytes 1+; Platelet Estimate INCR; Poikilocytosis 1+; White Blood Cell Scan OK (OK)
== END 2021-07-12 19:01 | disposition home or self-care (01) ==
LOC: ER 15:04
DX: E86.0 Dehydration (principal); Z86.16 Personal history of COVID-19; I10 Essential (primary) hypertension; I48.91 Unspecified atrial fibrillation; I50.9 Heart failure, unspecified; Z79.01 Long term (current) use of anticoagulants; Z79.82 Long term (current) use of aspirin
CPT/HCPCS: 85025; 80048; 36415; 83735; 80076; 83690; 71045; 96360; 99284; J7030; J2405

== ENCOUNTER 2021-07-21 13:53 | Inpatient (IN) | payer OTHER ==
--- OUTSIDE RECORDS SUMMARY | 2021-07-21 13:59 | XMS REPORT | Continuity of Care Document ---
:1945 Author Organization [facility] t Address [address] [place] [address] [address]. [address] [place] [address] Care Team Providers Name Role Phone Kai Montez MD Primary Care Physician ELLA Attending Clinician Unavailable Jordan SHEFFIELD Attending Clinician BRIDGER Attending Clinician Unavailable MARAH JONES Attending [...] Date Expiration Date S ource TOTALCARE SNP [id number] 2020 MEDICARE HMO-CIGNA 00:00:00 [facility] [id number] 2020 HMO 00:00:00 Problems Condition Condition Condition Status Onset Resolution Last Treating Co mments Source Name Details Category Date Date Treatment Clinician Date No known No known Disease Unive rs active active ity of problems problems [facility] Allergies, Adverse Reactions, Alerts Allergy Allergy Status Severity Reaction(s) Onset Inactive Treating Comm ents Source Name Type Date Date Clinician Aspirin Propensi Active 2020-08 [facility] ty to 1-04 College adverse 00:00: of reaction 00 Medicin s to e drug APIXABAN Allergy Active 2020-[address] [facility] ASPIRIN Allergy Active [facility] NO KNOWN Allergy Active [facility] Social History Social Habit Start Date Stop Date Quantity Comments Source Tobacco use and 2021-06-22 2021-06-22 Smokeless tobacco [employer] [employer] exposure 00:00:00 00:00:00 non-user of Medicine Sex Assigned At [birth year] [facility] [employer] l[employer] 00:00:00 00:00:00 of Medicine Smoking Status Start Date Stop Date Source Never smoked tobacco [facility] of Medicine Former smoker 2019-04-22 00:00:00 2019-04-22 00:00:00 [facility] Medications Ordered Filled Start Stop Current Ordering Indication Dosage Frequency Signature Comments Components Source Medication Medication Date Date Medication? Clinician (SIG) Name Name metoprolol 2020-08 75mg Take 75 mg [facility] (LOPRESSOR) 1-30 11-30 by mouth Col lege 50 MG 15:25: 00:00 two times of tablet 29 :00 daily. Medicin e atorvastati 2020-08 Yes 20mg Take 20 mg [facility] n (LIPITOR) 1-30 by mouth. Col lege 20 MG 15:02: of tablet 07 Medicin e ferrous 2020-08 Yes 325mg Take 325 [facility] sulfate 325 1-30 mg by College (65 Fe) MG 15:02: mouth 3 of tablet 07 times Medicin daily. e trazodone 2020-08 Yes 50mg Take 50 mg [facility] (DESYREL) 1-30 by mouth Colleg e 50 MG 15:02: nightly. of tablet 07 Medicin e verapamil 2020-08 Yes [id number] 120mg Take 1 [facility] (VERELAN) 1-30 capsule by [facility] 120 MG CR 00:00: mouth of capsule 00 daily. May Medici n take e additional 1 tablet daily as needed. ondansetron 2020-08 Yes [id number] 4mg Take 1 [facility] (ZOFRAN-ODT 1-30 Tablet by Col lege ) 4 mg 00:00: mouth of disintegrat 00 every 8 Medic in ing tablet hours as e needed for Nausea. atorvastati 2020-08 Yes 20mg Take 20 mg [facility] n (LIPITOR) 1-04 by mouth. Col lege 20 MG 08:27: of tablet 20 Medicin e omeprazole 2020-08 Yes 40mg Take 1 [facility] (PRILOSEC) 1-04 capsule by Col lege 40 MG 00:00: mouth two of capsule 00 times Medicin daily. e omeprazole 2020-08 Yes 40mg Take 1 [facility] (PRILOSEC) 1-04 capsule by Col lege 40 MG 00:00: mouth two of capsule 00 times Medicin daily. e benzonatate 2020-08 Yes [facility] (TESSALON) 0-25 College 100 mg 00:00: of capsule 00 Medicin e benzonatate 2020-08- No [facility] (TESSALON) 0-25 11-30 College 100 mg 00:00: 00:00 of capsule 00 :00 Medicin e docusate 2020-08 Yes [facility] sodium 0-17 College (COLACE) 00:00: of 100 MG 00 Medicin capsule e metoprolol 2020-08 Yes [facility] (LOPRESSOR) 0-17 College 25 MG 00:00: of tablet 00 Medicin e docusate 2020-08 Yes [facility] sodium 0-17 College (COLACE) 00:00: of 100 MG 00 Medicin capsule e metoprolol 2020-08- No [facility] (LOPRESSOR) 0-17 11-30 College 25 MG 00:00: 00:00 of tablet 00 :00 Medicin e promethazin 2020-08 Yes [facility] e 0-11 College (PHENERGAN) 00:00: of 12.5 MG 00 Medicin tablet e promethazin 2020-08 Yes [facility] e 0-11 College (PHENERGAN) 00:00: of 12.5 MG 00 Medicin tablet e Apixaban 5 2020-08- Yes 5mg Take 5 mg [facility] MG TABS 08-18 by mouth. Colleg e 00:00: 05:59 of 00 :00 Medicin e Apixaban 5 2020-2020- Yes 5mg Take 5 mg [facility] MG TABS 08-18 by mouth College 00:00: 05:59 two times of 00 :00 daily. Medicin e furosemide 2020-0 2020- Yes 40mg Take 40 mg [facility] (LASIX) 40 05-11 by mouth. Col lege MG tablet 00:00: 05:59 of 00 :00 Medicin e furosemide 2020-2020- Yes 40mg Take 40 mg [facility] (LASIX) 40 05-11 by mouth. Col lege MG tablet 00:00: 05:59 of 00 :00 Medicin e Aspirin 81 2020- Yes 81mg Take 81 mg [facility] MG tablet 05-11 by mouth. [facility] 00:00: 05:59 of 00 :00 Medicin e Aspirin 81 2020- No 81mg Take 81 mg [facility] MG tablet 05-11 by mouth. [facility] e[facility] 00:00: 00:00 of 00 :00 Medicin e atorvastati 2018-0 Yes 20mg Take 20 mg Univers n 20 mg 9-04 by mouth ity of tablet 14:02: at [place] [address] bedtime. Medical Branch clopidogrel 2019-0 Yes 75mg Take 75 mg Univers 75 mg 9-04 by mouth ity of tablet 14:02: daily. Medical Branch valsartan 2018-0 Yes 320mg Take 320 Uni vers 320 mg 9-04 mg by ity of tablet 14:02: mouth [place] 00 daily. Medical Branch atorvastati 2019-0 Yes 20mg Take 20 mg Univers n 20 mg 9-04 by mouth ity of tablet 14:02: at [place] 00 bedtime. Medical Branch clopidogrel 2019-0 Yes 75mg Take 75 mg Univers 75 mg 9-04 by mouth ity of tablet 14:02: daily. Medical Branch valsartan 2019-0 Yes 320mg Take 320 Uni vers 320 mg 9-04 mg by ity of tablet 14:02: mouth [place] 00 daily. Medical Branch atorvastati 2019-0 Yes 20mg Take 20 mg Univers n 20 mg 9-04 by mouth ity of tablet 14:02: at [place] 00 bedtime. Medical Branch clopidogrel 2019-0 Yes 75mg Take 75 mg Univers 75 mg 04 by mouth ity of tablet 14:02: daily. [place] [facility] valsartan 2019-0 Yes 320mg Take 320 Uni vers 320 mg 9-04 mg by ity of tablet 14:02: mouth 00 daily. Medical Branch ondansetron 2019- Yes 4mg 4 mg, Slow Univers (ZOFRAN 04-22 IV Push, ity of (PF)) 13:19: PRN, 1 [place] injection 4 48 dose, Medical mg Starting Branch Sat04/22/19 at 0819, Until Discontinu ed, Routine, Nausea and Vomiting (N/V), PACU FENTanyl PF 2018- Yes 25ug 25 mcg, Uni vers (SUBLIMAZE 04-22 Slow IV ity of (PF)) 13:19: Push, [place] injection 47 Q5MIN PRN, Medi allison 25 mcg 4 doses, Branch Starting Sat04/22/19 at 0819, Until Discontinu ed, Routine, Pain (scale 7-10), PACU FENTanyl PF 2018- Yes 25ug 25 [...] Until Branch Discontinu ed, Routine, Intra-op simethicone 2018-0 Yes PRN, Univer s (GAS 04-22 Starting [...] IV Medical Infusion, Branch ONCE, 1 dose, Sat04/22/19 at 0630, Routine, DSU Pre-op Immunizations Ordered Immunization Filled Immunization Date Status Commen ts Source Name Name RETC SARS-CoV-2 2021-07-18 Completed [facility] Vaccination 00:00:00 of Medicine Vital Signs Vital Name Observation Time Observation Value Comments Source WEIGHT 2021-05-06 08:52:00 88.2 kg WEIGHT 2021-05-03 09:54:00 92.08 kg HEIGHT 2021-04-28 15:00:00 165.1 cm Systolic blood 2021-07-18 20:56:00 118 mm[Hg] [facility] pressure Medicine Diastolic blood 2021-07-18 20:56:00 70 mm[Hg] [facility] Medicine Heart rate 2021-07-18 20:56:00 102 /min [facility] Respiratory rate 2021-07-18 20:56:00 16 /min [facility] Body height 2021-07-18 20:56:00 167.6 cm [facility] Body weight 2021-07-18 20:56:00 83.008 kg [facility] BMI 2021-07-18 20:56:00 29.54 kg/m2 [facility] Oxygen saturation in 2021-07-18 20:56:00 100 /min [facility] Arterial blood by Medicine Pulse oximetry HEIGHT 2021-07-03 20:00:00 167.6 cm WEIGHT 2021-07-03 20:00:00 81.8 kg HEIGHT 2021-07-03 12:30:00 167.6 cm WEIGHT 2021-07-03 12:30:00 76.204 kg HEIGHT 2021-07-03 20:00:00 167.6 cm WEIGHT 2021-07-03 20:00:00 81.8 kg HEIGHT 2021-07-03 12:30:00 167.6 cm WEIGHT 2021-07-03 12:30:00 76.204 kg Systolic blood 2021-06-22 13:19:00 140 mm[Hg] [facility] pressure Medicine Diastolic blood 2021-06-22 13:19:00 82 mm[Hg] [facility] pressure Medicine Heart rate 2021-06-22 13:19:00 86 /min [facility] Body temperature 2021-06-22 13:19:00 36.83 Lalita [facility] Body height 2021-06-22 13:19:00 167.6 cm [facility] Body weight 2021-06-22 13:19:00 84.732 kg [facility] BMI 2021-06-22 13:19:00 30.15 kg/m2 [facility] WEIGHT 2021-05-23 22:20:00 83.643 kg HEIGHT [...] 13:42:00 140 mm[Hg] Univer sity of pressure [place] [facility] Diastolic blood 2019-04-22 13:42:00 73 mm[Hg] Unive rsity of pressure [facility] Heart rate 2019-04-22 13:42:00 56 /min Universi ty [facility] Respiratory rate 2019-04-22 13:42:00 16 /min Univ ersity of [facility] Branch Oxygen saturation in 2019-04-22 13:42:00 99 /min University of Arterial blood by [place] [employer] allison Pulse oximetry Branch Body temperature 2019-04-22 13:27:00 36.33 Lalita [facility] [place] Body height 2019-04-17 16:00:00 162.6 cm [facility] Body weight 2019-04-17 16:00:00 91.173 kg [facility] BMI 2019-04-17 16:00:00 34.50 kg/m2 [facility] Systolic blood 2019-04-22 13:42:00 140 mm[Hg] Univer sity of pressure [facility] Branch Diastolic blood 2019-04-22 13:42:00 73 mm[Hg] Unive rsity of pressure [facility] Branch Heart rate 2019-04-22 13:42:00 56 /min Universi ty [facility] Branch Respiratory rate 2019-04-22 13:42:00 16 /min Univ ersity of [facility] Oxygen saturation in 2019-04-22 13:42:00 99 /min University of Arterial blood by [facility] Pulse oximetry Branch Body temperature 2019-04-22 13:27:00 36.33 Lalita Univ [facility] Body height 2019-04-17 16:00:00 162.6 cm [facility] Body weight 2019-04-17 16:00:00 91.173 kg [facility] BMI 2019-04-17 16:00:00 34.50 kg/m2 [facility] Procedures Procedure Date / Time Performing Clinician Source Performed ELECTROCARDIOGRAM COMPLETE 2021-07-18 21:05:00 Eden Ortega [facility] EGD (ENDO) 2019-04-22 12:55:59 Willy Montez [facility] R [facility] DAY SURGERY - ADC 2019-04-22 05:01:00 Doctor Unassigned, [facility] [place] [facility] Plan of Care Planned Activity Planned Date Details Comments Source Future Scheduled 2021-07-20 Pneumococcal 65+ (1 of 2 [facility] Test 15:04:42 - PPSV23) [code = of Medicin e Pneumococcal 65+ (1 of 2 - PPSV23)] Future Scheduled 2021-07-20 TETANUS SHOT (ADULT) [facility] Test 15:04:42 [code = TETANUS SHOT of Medi cine (ADULT)] Future Scheduled 2021-07-20 BMI FOLLOW UP PLAN [code [facility] Test 15:04:42 = BMI FOLLOW UP PLAN] of Med icine Future Scheduled 2021-07-20 Hepatitis C screening Ba [facility] Test 15:04:42 (procedure) [code = of Medic ine 243276099] Future Scheduled 2021-07-20 ZOSTER VACCINE (1 of 2) [facility] Test 15:04:42 [code = ZOSTER VACCINE of Me dicine (1 of 2)] Future Scheduled 2021-07-20 FALL SCREEN [code = FALL [facility] Test 15:04:42 SCREEN] of Medicine Future Scheduled 2021-07-20 MEDICARE IPPE (WELCOME B [facility] Test 15:04:42 TO MEDICARE) [code = of Medi cine MEDICARE IPPE (WELCOME TO MEDICARE)] Future Scheduled 2021-07-20 FLU VACCINE > 6 MONTHS B [facility] Test 15:04:42 [code = FLU VACCINE > 6 of M edicine MONTHS] Future Scheduled 2021-07-18 ELECTROCARDIOGRAM [facility] Test 15:05:03 COMPLETE [code = 50025] of M edicine Future Scheduled 2021-06-22 CBC W/AUTO DIFF WITH Ordered: [facility] Test 09:11:41 PLATELETS [code = 06/22/2021 of Medicin e 76614-3] Future Scheduled 2021-06-22 FERRITIN [code = Ordered: [facility] Test 09:11:41 42845-0] 06/22/2021 of Medicine Future Scheduled 2021-06-22 IRON+TIBC+%SAT [code = Ordered: B [facility] Test 09:11:41 NOCPT] 06/22/2021 of Medicine Future Scheduled 2021-06-22 TETANUS SHOT (ADULT) [facility] Test 08:19:01 [code = TETANUS SHOT of Medi cine (ADULT)] Future Scheduled 2021-06-22 Hepatitis C screening [facility] Test 08:19:01 (procedure) [code = of Medic ine 812074007] Future Scheduled 2021-06-22 ZOSTER VACCINE (1 of 2) [facility] Test 08:19:01 [code = ZOSTER VACCINE of Me dicine (1 of 2)] Future Scheduled 2021-06-22 FALL SCREEN [code = FALL [facility] Test 08:19:01 SCREEN] of Medicine Future Scheduled 2021-06-22 PNEUMOVAX >=65 (PPSV23) [facility] Test 08:19:01 [code = PNEUMOVAX >=65 of Me dicine (PPSV23)] Future Scheduled 2021-06-22 MEDICARE IPPE (WELCOME B [facility] Test 08:19:01 TO MEDICARE) [code = of Medi cine MEDICARE IPPE (WELCOME TO MEDICARE)] Future Scheduled 2021-06-22 FLU VACCINE > 6 MONTHS B [facility] College Test 08:19:01 [code = FLU VACCINE > 6 of M edicine MONTHS] Encounters Start End Encounter Admission Attending Care Care Encounter Source Date/Time Date/Time Type Type Clinicians Facility Department ID 2021-05-28 Inpatient ER FRACISCO JARAMILLO Gastro [id number] [facility] 12:00:47 RYLAN 2021-07-18 2021-07-[address] [facility] [id number] [facility] 15:48:01 16:26:04 Colleg e of Medicin e 2021-07-18 2021-07-18 Office Alam, BCM [id number] [facility] 14:40:00 16:15:56 Visit Mahboob AMBULATOR 350.1.13.21 College Y 0.2.7.2.686 of [id number] Medi eddie 375 e 2021-07-03 2021-07-04 Outpatient ER DARLENE SPARKS [facility] Emergency 20 [id number] [facility] 12:24:00 14:27:00 2021-07-03 2021-07-[address] [facility] [id number] [facility] 00:00:00 23:59:00 Colleg e of Medicin e 2021-06-22 2021-06-22 Office GREG SANCHEZ [id number] [facility] 08:13:37 11:39:39 Visit RICK AMBULATOR 350.1.13.21 College Y 0.2.7.2.686 of [id number] Medi eddie 325 e 2021-05-23 2021-05-26 Inpatient ER LUCASERNJ, [facility] Emergency 20 [id number] [facility] 15:12:00 15:03:00 MALKA 2021-05-23 2021-05-[address] [facility] [id number] [facility] 00:00:00 23:59:00 Colleg e of Medicin e 2021-05-20 2021-05-20 Emergency ER [facility] Emergency [id number] [facility] 01:57:00 01:57:00 2021-05-15 2021-05-[address] [facility] [id number] [facility] 00:00:00 23:59:00 Colleg e of Medicin e 2021-05-15 2021-05-15 Emergency ER SLE Emergency [id number] [facility] 12:00:00 12:00:00 2021-04-29 2021-04-[address] [facility] [id number] [facility] 00:00:00 23:59:00 Colleg e of Medicin e 2021-04-28 2021-04-[address] [facility] [id number] [facility] 12:32:00 23:59:00 Colleg e of Medicin e 2019-04-22 2019-04-22 [facility] [id number] [facility] 06:15:00 08:56:00 Encounter Katy mena 350.1.13.10 ity of [place] [id number] [facility] 071 [place] 2019-04-22 2019-04-22 [facility] [id number] 06:15:00 08:56:00 Encounter e[place] 350.1.13.10 [place] 4.2.7.2.686 Surgical [id number] [place] [address] 2019-04-22 2019-04-22 Anesthesia [facility] [id number] [facility] 07:54:00 08:13:00 Jaden Loyola 350.1.13.10 i ty of [place] [id number] [facility] 020 [place] 2019-04-22 2019-04-22 Anesthesia [facility] [id number] 07:54:00 08:13:00 Jaden Loyola 350.1.13.10 [place] 4.2.7.2.686 Surgical [id number] [place] [address] 2019-04-22 2019-04-22 Orders Doctor MURILLO [id number] Univers 00:00:00 00:00:00 Only Unassigned, ANA MARIA 350.1.13.10 ity of [place] [facility] 4.2.7.2.686 [place] as [id number] [address] 2019-04-22 2019-04-22 Orders Doctor LIDIA 1.2.840.114 [id number] 00:00:00 00:00:00 Only Unassigned, ANA MARIA 350.1.13.10 [place] [facility] 4.2.7.2.686 [id number] Results Test Description Test Time Test Comments Results Result Sour e Comments FL, ESOPHAGUS 2021-07-04 [facility] 11:34:00 studyReason for exam:->POST-OP CHI PROBLEMpost [facility] endocscopy 1 CENTERName: month ago CADEN NARAYAN : 1945 Sex: M FI NAL REPORT [...] [place] Verified Date/Time: 07/04/2021 11:34:49 Reading Location: [address] Ortho Consult Reading Room C METABOLIC PANEL 2021-07-04 [...] NOT 1092) ACCURATE CRE ATININE CLEARANCE IN HI EDICTING GLOMERULAR FILT RATION RATE. ESTIMATED GFR IS NOT APPLICABLE FOR DIALYSIS PATIENTS. Defensive Line Coach ID - MARZENA MSARS-COV2/RT-PCR ([facility])2021-07-03 17:50:45 Test Item Value Reference Range Interpretation Comments SARS-COV2/RT-PCR Negative Negative The SARS-Co V-2 target (test code = nucleic acids a re not 2360675) detected in thi s specimen. Negative result [...] revoked sooner. Fact Sheet for Healthcare Providers: https://www.amcure/Documents/Xpert%20Xpress%20SARS%20CoV-2/Fact%20Sheets/882-3542%20SARS-COV -2%20HEALTHCARE%20PROVIDERS%20FACT%20SHEET.pdf Fact Sheet for Healthcare Patients: https://www.eTech Money/Documents/Xpert %20Xpress%20SARS%20CoV-2/Fact%20Sheets/862-3801%93GKNA-EDS-5%20PATIENT%20FACT%20 SHEET.qqvV-[id number] 17:04:25 Test Item Value Reference Range Interpretation [...] of thrombosis is within 95-100% range.BLOOD GAS, [id number] 16:22:57 Test Item Value Reference Range Interpretation [...] code = 1819) 21.0 RAD, CHEST, 2 [id number] 14:40:00Reason for exam:->CHEST PAIN since endoscopy a month [facility] endocscopy 1 month ago [facility] CENTERName: CHAN SILVERSanto BACH : 1945 Sex: MFINAL REPORT EXAM: Chest one view COMPARISON: May 15, 2021 CLINICAL HISTORY: Chest pain FINDINGS: Minimal blunting of bilateral posterior costophrenic sulci are noted which may represent small effusions. The cardiac size remains enlarged. There is no evidence of pulmonary consolidation or pneumothorax. The regional osseous structures are unremarkable. Signed:Mati Ackerman MDReport Verified Date/Time: 07/03/2021 14:40:03 [id number] 14:12:25 Test Item Value Reference Range Interpretation Comments LIPASE (BEAKER) (test code = 749) 22 U/L 8-78 Defensive Line Coach ID - DBCOMPREHENSIVE METABOLIC [id number] 14:12:24 Test Item Value Reference Range Interpretation [...] S NOT APPLICABLE FOR DIALYSIS PATIEN TS. Defensive Line Coach ID - DBHIGH SENSITIVITY TROPONIN [id number] 14:10:43 Test Item Value Reference Range Interpretation Comments HIGH SENSITIVITY 7 pg/ml See_Comment [Automated message] TROPONIN I (test code = The system which [id number]) generated this result transmitted ref erence range: <=35. Th e reference range was not used to interpr et this result as normal/abnormal . Defensive Line Coach ID - RMThe LAMP SHADE JOINER STAT High Sensitivity Troponin-I results should be used in conjunctionwith other diagnostic information such as ECG, clinical observations and information, and patient symptoms to aid in the diagnosis of [place].B-TYPE NATRIURETIC FACTOR (BNP)2021-07-03 14:09:26 Test Item Value Reference Range Interpretation Comments B-TYPE NATRIURETIC PEPTIDE (BEAKER) 515 pg/mL 0-100 H (test code = 700) Defensive Line Coach ID - RMCBC W/PLT COUNT & AUTO [id number] 13:39:07 Test Item Value Reference Range Interpretation [...] (BEAKER) (test code = 2801) HEMOGLOBIN AND [id number] 05:07:16 Test Item Value Reference Range Interpretation Comments HEMOGLOBIN (BEAKER) (test code = 7.9 GM/DL 13.7-17.5 L 410) HEMATOCRIT (BEAKER) (test code = 26.4 % 40.1-51.0 L 411) Defensive Line Coach ID - [id number] AND [id number] 18:44:57 Test Item Value Reference Range Interpretation Comments HEMOGLOBIN (BEAKER) (test code = 8.7 GM/DL 13.7-17.5 L 410) HEMATOCRIT (BEAKER) (test code = 29.7 % 40.1-51.0 L 411) Defensive Line Coach ID - [id number] AND [id number] 11:29:37 Test Item Value Reference Range Interpretation Comments HEMOGLOBIN (BEAKER) (test code = 8.3 GM/DL 13.7-17.5 L 410) HEMATOCRIT (BEAKER) (test code = 28.5 % 40.1-51.0 L 411) Defensive Line Coach ID - [id number] AND [id number] 04:51:37 Test Item Value Reference Range Interpretation Comments HEMOGLOBIN (BEAKER) (test code = 7.9 GM/DL 13.7-17.5 L 410) HEMATOCRIT (BEAKER) (test code = 26.9 % 40.1-51.0 L 411) Defensive Line Coach ID - [id number] AND [id number] 16:42:26 Test Item Value Reference Range Interpretation Comments HEMOGLOBIN (BEAKER) (test code = 8.6 GM/DL 13.7-17.5 L 410) HEMATOCRIT (BEAKER) (test code = 29.4 % 40.1-51.0 L 411) Defensive Line Coach ID - 6000BASIC METABOLIC [id number] 09:04:40 Test Item Value Reference Range Interpretation [...] S NOT APPLICABLE FOR DIALYSIS PATIEN TS. Defensive Line Coach ID - ROSIANGHEMOGLOBIN AND [id number] 08:41:52 Test Item Value Reference Range Interpretation Comments HEMOGLOBIN (BEAKER) (test code = 7.6 GM/DL 13.7-17.5 L 410) HEMATOCRIT (BEAKER) (test code = 26.5 % 40.1-51.0 L 411) Defensive Line Coach ID - [id number]-COV2/RT-PCR ([facility])2021-05-23 19:59:55 Test Item Value Reference Range Interpretation Comments SARS-COV2/RT-PCR Negative Negative The SARS-Co V-2 target (test code = nucleic acids a re not 0920331) detected in thi s specimen. Negative result [...] individuals suspected of CO VID-19 [facility]. This test has been [...] revoked sooner. Fact Sheet for Healthcare Providers: https://www.amcure/Documents/Xpert%20Xpress%20SARS%20CoV-2/Fact%20Sheets/302-1102%20SARS-COV -2%20HEALTHCARE%20PROVIDERS%20FACT%20SHEET.pdf Fact Sheet for Healthcare Patients: https://www.eTech Money/Documents/Xpert %20Xpress%20SARS%20CoV-2/Fact%20Sheets/3023801%41SPMQ-SSP-4%20PATIENT%20FACT%20 SHEET.pdfCOMPREHENSIVE METABOLIC [id number] 17:17:21 Test Item Value Reference Range Interpretation [...] S NOT APPLICABLE FOR DIALYSIS PATIEN TS. Defensive Line Coach ID Patrick LUDA [id number] 17:17:21 Test Item Value Reference Range Interpretation Comments LIPASE (BEAKER) (test code = 749) 31 U/L 8-78 Defensive Line Coach ID Patrick LARES [id number] 16:55:15 Test Item Value Reference Range Interpretation [...] (BEAKER) (test code = 2801) BASIC METABOLIC [id number] 04:38:30 Test Item Value Reference Range Interpretation [...] S NOT APPLICABLE FOR DIALYSIS PATIEN TS. Defensive Line Coach ID - DBCBC W/PLT COUNT & AUTO [id number] 04:21:40 Test Item Value Reference Range Interpretation [...] (BEAKER) (test code = 2801) BASIC METABOLIC [id number] 07:03:04 Test Item Value Reference Range Interpretation [...] S NOT APPLICABLE FOR DIALYSIS PATIEN TS. Defensive Line Coach ID - PIAYA LCBC (HEMOGRAM ONLY)2021-05-17 04:38:47 [...] (BEAKER) (test code = 413) HEMOGLOBIN AND [id number] 20:18:40 Test Item Value Reference Range Interpretation Comments HEMOGLOBIN (BEAKER) (test code = 7.7 GM/DL 13.7-17.5 L 410) HEMATOCRIT (BEAKER) (test code = 25.7 % 40.1-51.0 L 411) Defensive Line Coach ID - 6000BASIC METABOLIC [id number] 06:32:43 Test Item Value Reference Range Interpretation [...] S NOT APPLICABLE FOR DIALYSIS PATIEN TS. Defensive Line Coach ID - MARZENA MCBC W/PLT COUNT & AUTO [id number] 06:09:12 Test Item Value Reference Range Interpretation [...] (BEAKER) (test code = 2801) HEMOGLOBIN AND [id number] 00:13:44 Test Item Value Reference Range Interpretation Comments HEMOGLOBIN (BEAKER) (test code = 8.0 GM/DL 13.7-17.5 L 410) HEMATOCRIT (BEAKER) (test code = 28.1 % 40.1-51.0 L 411) Defensive Line Coach ID - 6000SARS-COV2/RT-PCR ([facility])2021-05-15 18:07:21 Test Item Value Reference Range Interpretation Comments SARS-COV2/RT-PCR Negative Negative The SARS-Co V-2 target (test code = nucleic acids a re not 4031922) detected in thi s specimen. Negative result [...] revoked sooner. Fact Sheet for Healthcare Providers: https://www.amcure/Documents/Xpert%20Xpress%20SARS%20CoV-2/Fact%20Sheets/3023802%20SARS-COV -2%20HEALTHCARE%20PROVIDERS%20FACT%20SHEET.pdf Fact Sheet for Healthcare Patients: https://www.[employer]/Documents/Xpert %20Xpress%20SARS%20CoV-2/Fact%20Sheets/3023801%48VKTR-TNG-0%20PATIENT%20FACT%20 SHEET.pdfHIGH SENSITIVITY TROPONIN [id number] 15:44:19 Test Item Value Reference Range Interpretation Comments HIGH SENSITIVITY 6 pg/ml See_Comment [Automated message] TROPONIN I (test code = The system which [id number]) generated this result transmitted ref erence range: <=35. Th e reference range was not used to interpr et this result as normal/abnormal . Defensive Line Coach ID - DBThe LAMP SHADE JOINER STAT High Sensitivity Troponin-I results should be used in conjunctionwith other diagnostic information such as ECG, clinical observations and information, and patient symptoms to aid in the diagnosis of [place].[id number] 15:36:53 Test Item Value Reference Range Interpretation Comments MAGNESIUM (BEAKER) (test code = 2.1 mg/dL 1.6-2.6 627) Defensive Line Coach ID - [id number] 15:36:53 Test Item Value Reference Range Interpretation Comments PHOSPHORUS (BEAKER) (test code = 3.3 mg/dL 2.3-4.7 604) Defensive Line Coach ID - DBCOMPREHENSIVE METABOLIC [id number] 15:36:52 Test Item Value Reference Range Interpretation [...] S NOT APPLICABLE FOR DIALYSIS PATIEN TS. Defensive Line Coach ID - DBCBC W/PLT COUNT & AUTO [id number] 15:12:30 Test Item Value Reference Range Interpretation [...] = 2801) RAD, CHEST, 1 VIEW, NON [id number] 13:55:00Reason for exam:->MELENAReason for exam:->GENERAL ILLNESSReason for exam:->GENERALIZED WEAKNESS, NOT ASSOCIATED WITH EXTREMITIESShould this be performed at the bedside?->Yes [facility] 1945 Sex: MFINAL REPORT INDICATION: MELENAGENERAL ILLNESSGENERALIZED WEAKNESS, NOT ASSOCIATED WITH EXTREMITIES COMPARISON: 05/01/2021 TECHNIQUE: Single frontal view of the chest. FINDINGS: Lungs and pleura: Clear lungs. No effusion.Heart and mediastinum: Normal heart size. Unremarkable mediastinal contours.Osseous structures: No acute abnormality.Other: None. IMPRESSION: No acute intrathoracic abnormality. Signed: Gaby Scott Verified Date/Time: 05/15/2021 13:55:04 Reading Location: [facility] Radiology Reading Room [id number] 07:19:33 Test Item Value Reference Range Interpretation Comments MAGNESIUM (BEAKER) (test code = 2.4 mg/dL 1.6-2.6 627) Defensive Line Coach ID - PIAYA LBASIC METABOLIC [id number] 07:19:32 Test Item Value Reference Range Interpretation [...] S NOT APPLICABLE FOR DIALYSIS PATIEN TS. Defensive Line Coach ID - PIAYA LCBC W/PLT COUNT & AUTO [id number] 06:34:22 Test Item Value Reference Range Interpretation [...] (test code = 2801) UREA NITROGEN, RANDOM [id number] 17:46:02 Test Item Value Reference Range Interpretation Comments UREA NITROGEN URINE (BEAKER) (test 404 mg/dL code = 538) Reference Range: No NormalsOperator ID - BSSODIUM, RANDOM [id number] 17:46:01 Test Item Value Reference Range Interpretation Comments SODIUM URINE (BEAKER) (test code = 101 meq/L 243) Reference Range: No NormalsOperator ID - BSCREATININE, RANDOM [id number] 17:46:00 Test Item Value Reference Range Interpretation Comments CREATININE URINE (BEAKER) (test 61.7 mg/dL code = 375) Reference Range: No NormalsOperator ID - BSURINALYSIS WITH MICROSCOPIC IF [id number] 16:41:11 Test Item Value Reference Range Interpretation [...] = 463) SOURCE(BEAKER) (test code = 2795) Defensive Line Coach ID - [auto]BLOOD [id number] 11:01:01 Test Item Value Reference Range Interpretation Comments CULTURE (BEAKER) (test No growth in 5 days code = 1095) BLOOD [id number] 11:01:01 Test Item Value Reference Range Interpretation Comments CULTURE (BEAKER) (test No growth in 5 days code = 1095) The specimen volume collected for this blood culture was below the optimum (10 mL per bottle or 20 mL total). Use of lower volumes may adversely affect recovery and/or detection times of some organisms.[id number] 05:38:27 Test Item Value Reference Range Interpretation Comments MAGNESIUM (BEAKER) (test code = 2.3 mg/dL 1.6-2.6 627) Defensive Line Coach ID - PIAYA LBASIC METABOLIC [id number] 05:38:26 Test Item Value Reference Range Interpretation [...] S NOT APPLICABLE FOR DIALYSIS PATIEN TS. Defensive Line Coach ID - PIAYA LPROTHROMBIN [id number] 05:23:25 Test Item Value Reference Range Interpretation Comments PROTIME (BEAKER) 16.9 seconds 11.9-14.2 H (test code = 759) INR (BEAKER) (test 1.39 See_Comment [Automat ed message] code = 370) The system [employer] generated this result transmitted ref erence range: [...] (BEAKER) (test code = 2801) COMPREHENSIVE METABOLIC [id number] 16:17:38 Test Item Value Reference Range Interpretation [...] S NOT APPLICABLE FOR DIALYSIS PATIEN TS. Defensive Line Coach ID - DBSARS-COV2/RT-PCR ([facility])2021-05-08 12:32:16 Test Item Value Reference Range Interpretation Comments SARS-COV2/RT-PCR (test Negative Not Detected, Negative, code = 3899895) See external report for linked test SARS-COV-2 PERFORMING LAB [facility] (test code = 6242766) Negative result for this test determines that [...] 564(g) of the Act.Fact Sheet for Healthcare Providers:https://www.[employer]/sites/default/files/product/documents/Fact_Sherajesh navas_BV_Rkzayutdl_Isda_WWKO-VwI-5.pdfFact Sheet for Healthcare Patients:https://www.[employer]/sites/default/files/product/ documents/Extf_Ufbkr_Hpcbyunc_Kxto_KOAW-PvE-1.pdfPerforming Laboratory:[facility], [place] [address]EYZ (HEMOGRAM ONLY) 2021-05-08 06:41:47 Test Item Value [...] code = 413) MYOCARD IMAGING, MULTI, PHARM, [id number] 13:41:00Unlisted Reason for Exam - Click Yes and Enter Reason Below->No [facility] : 1945 Sex: MFINAL REPORT PROCEDURE: Rest/Stress MYOCARDIAL PERFUSION SPECT with regadenoson\\XA9\\ CPT CODE: 74188 INDICATION: Chest pain PROTOCOL: 10.6 mCi of [...] (BEAKER) (test code = 413) BASIC METABOLIC [id number] 06:10:10 Test Item Value Reference Range Interpretation [...] S NOT APPLICABLE FOR DIALYSIS PATIEN TS. Defensive Line Coach ID - SHANE GCBC (HEMOGRAM ONLY)2021-05-06 05:35:30 [...] 0-0 H (BEAKER) (test code = 413) [id number] 17:04:33 Test Item Value Reference Range Interpretation Comments PARTIAL THROMBOPLASTIN TIME 75.5 seconds 22.5-36.0 H (BEAKER) (test code = 760) [id number] 08:48:29 Test Item Value Reference Range Interpretation Comments PARTIAL THROMBOPLASTIN TIME 39.1 seconds 22.5-36.0 H (BEAKER) (test code = 760) [id number] 07:02:01 Test Item Value Reference Range Interpretation [...] (BEAKER) (test code = 413) BASIC METABOLIC [id number] 06:36:45 Test Item Value Reference Range Interpretation [...] S NOT APPLICABLE FOR DIALYSIS PATIEN TS. Defensive Line Coach ID - SHANE [id number] 22:11:03 Test Item Value Reference Range Interpretation Comments PARTIAL THROMBOPLASTIN TIME 88.2 seconds 22.5-36.0 H (BEAKER) (test code = 760) PERIPHERAL BLOOD SMEAR - PATHOLOGIST [id number] 18:22:51 Test Item Value Reference Range Interpretation Comments PERIPHERAL SMR Microcytic hypochromic REVIEW (BEAKER) anemia with marked (test code = 2640) anisopoikilocytosis and polychromasia, consistent with history of LEESA. Leukocytosis with predominantly mature granulocytes. No blasts seen. Adequate platelets with unremarkable morphology. [id number] Andreina Schmidt, 112 (BEAKER) (test M.D code [...] (BEAKER) (test code 2+ moderate = 966) [id number] 12:13:05 Test Item Value Reference Range Interpretation Comments PARTIAL THROMBOPLASTIN TIME 55.6 seconds 22.5-36.0 H (BEAKER) (test code = 760) TISSUE [id number] 11:53:42Surgical Pathology Report Case: [id number] Authorizing Provider: Yolanda Lyle MD Collected: 05/03/2021 10:38 AM Ordering Location: [address] Received: 05/03/2021 02:25 PM Service Pathologist: Ciro Diamond MD Specimen: Polyp, Colon - Right/Ascending, x3 PART A RIGHT ASCENDING COLON POLYPX3, POLYPECTOMY:TUBULAR ADENOMA Signing Pathologist Direct Phone Line: [phone] signed by Ciro Diamond MD on 05/04/2021 at 11:53 [id number] colonReceived in formalin labeled the patient's name, accession number and "ascending colon polyp" are multiple chavez soft tissue fragments measuring up to 0.5 cm in greatest dimension which are filtered and submitted in toto in A1.URSULA Martell, HT (ASCP)performedEastern Plumas [facility] Hospital, Department of Pathology, [address] [place] [address], XzolboUC [facility] [place], [facility] of [facility]ology, [address] [place] [address], AqzrvgUC [facility], Department of Pathology, [address] [place] [address], [id number] 11:13:03 Test Item Value Reference Range Interpretation Comments PARTIAL THROMBOPLASTIN TIME > seconds 22.5-36.0 HH (BEAKER) (test code = 760) URINALYSIS [id number] 10:30:34 Test Item Value Reference Range Interpretation Comments RBC UA (BEAKER) (test code = 519) 3 /HPF WBC UA (BEAKER) (test code = 520) 2 /HPF BACTERIA (BEAKER) (test code = None Seen 517) MUCUS (BEAKER) (test code = 1574) Moderate CRYSTALS, URINE (BEAKER) (test None Seen code = 1521) AMORPHOUS CRYSTALS (BEAKER) (test Occasional code = 1584) Defensive Line Coach ID - techURINALYSIS WITH MICROSCOPIC IF [id number] 10:23:22 Test Item Value Reference Range Interpretation [...] = 463) SOURCE(BEAKER) (test code = 2795) Defensive Line Coach ID - [auto]BASIC METABOLIC [id number] 06:55:55 Test Item Value Reference Range Interpretation [...] S NOT APPLICABLE FOR DIALYSIS PATIEN TS. Defensive Line Coach ID - SHANE GCBC (HEMOGRAM ONLY)2021-05-04 06:35:01 [...] 0-0 (BEAKER) (test code = 413) BLOOD [id number] 18:01:00 Test Item Value Reference Range Interpretation Comments CULTURE (BEAKER) (test No growth in 5 days code = 1095) BLOOD [id number] 18:00:59 Test Item Value Reference Range Interpretation Comments CULTURE (BEAKER) (test No growth in 5 days code = 1095) TISSUE [id number] 17:23:09Surgical Pathology Report Case: [id number] Authorizing Provider: Yolanda Lyle MD Collected: 05/02/2021 03:08 PM Ordering Location: [address] Received: 05/03/2021 09:22 AM Service Pathologist: [...] ORINVASIVE CARCINOMA. Signing Pathologist Direct Phone Line: [phone] signed by Ciro Diamond MD on 05/03/2021 at 5:23 [id number], [id number] iron deficiency anemiaA. Duodenum tissue, rule out [...] evaluated Immunohistochemistry technical testing was performed at [facility], Pathology Laboratory where it was developed [...] qualified to perform high complexity clinical laboratory testing.[facility], Department of Pathology, [address] [place], [place] [id number], TqklijUC [facility] [place], [facility] of Pathology, [address] [place] [address], GoqwqxUC [facility], Department of Pathology, [address] [place] [address], JQVDZ METABOLIC PANEL 2021-05-03 06:21:43 Test Item Value [...] S NOT APPLICABLE FOR DIALYSIS PATIEN TS. Defensive Line Coach ID - MARZENA MTSH/FREE T4 IF [id number] 05:55:30 Test Item Value Reference Range Interpretation Comments THYROID STIMULATING HORMONE 0.869 uIU/mL 0.350-4.940 (BEAKER) (test code = 772) Defensive Line Coach ID - MARZENA MB-TYPE NATRIURETIC FACTOR (BNP)2021-05-03 05:32:14 Test Item Value Reference Range Interpretation Comments B-TYPE NATRIURETIC PEPTIDE (BEAKER) 452 pg/mL 0-100 H (test code = 700) Defensive Line Coach ID - MARZENA MCBC (HEMOGRAM ONLY)2021-05-03 05:22:14 [...] CONCENTRATION Adequate (CELLAVISION)(BEAKER) (test code = 3438) Defensive Line Coach ID - Segovia [place] comments: Slide comments:CBC W/PLT COUNT & AUTO [id number] 11:59:17 Test Item Value Reference Range Interpretation [...] (BEAKER) (test code = 413) BASIC METABOLIC [id number] 09:20:42 Test Item Value Reference Range Interpretation [...] S NOT APPLICABLE FOR DIALYSIS PATIEN TS. Defensive Line Coach ID - KEARA WPT/[id number] 09:05:40 Test Item Value Reference Range Interpretation Comments PROTIME (BEAKER) (test 15.0 seconds 11.9-14.2 H code = 759) INR (BEAKER) (test 1.20 See_Comment [Automat ed code = 370) message] The sy stem which generated this result transmitted reference range : <=5.90. The reference range was not used to interpret this result as normal/abnormal . PARTIAL THROMBOPLASTIN 33.6 seconds 22.5-36.0 TIME (BRAXTON) (test code = 760) RECOMMENDED COUMADIN/WARFARIN INR THERAPY RANGESSTANDARD DOSE: 2.0 - 3.0 Includes: PROPHYLAXIS forvenous thrombosis, systemic embolization; TREATMENT for venous thrombosis and/or pulmonary embolus.HIGH RISK: Target INR is 2.5-3.5 for patients with mechanical heart valves.SARS-COV2/RT-PCR ([facility]) 2021-05-01 12:34:25 Test Item Value Reference Range Interpretation Comments SARS-COV2/RT-PCR (test Negative Not Detected, Negative, code = 8179787) See external report for linked test SARS-COV-2 PERFORMING LAB [facility] (test code = 6081904) Negative result for this test determines that [...] 564(g) of the Act.Fact Sheet for Healthcare Providers:https://www.[employer]/sites/default/files/product/documents/Fact_Shee q_KB_Ldlrqfknn_Jbuj_MPVL-DrN-8.pdfFact Sheet for Healthcare Patients:https://www.[employer]/sites/default/files/product/ documents/Pypr_Jokzk_Haoqzqnl_Lcqx_JQBX-ZeA-2.pdfPerforming Laboratory:[facility], [place] [address]HST, CHEST, 1 VIEW, NON [id number] 09:29:00Reason for exam:->shortness of breathShould this be performed at the bedside?->Yes [facility] : 1945 Sex: MFINAL REPORT Chest AP portable History provided: Shortness of breath Heart size magnified by projection. Lungs are clear and vascularity normal. Signed: Lobo Jeffers Verified Date/Time: 05/01/2021 09:29:27 Reading Location: [facility] Radiology Reading Room CBC (HEMOGRAM ONLY)2021-05-01 [...] (BEAKER) (test code = 413) BASIC METABOLIC [id number] 06:24:43 Test Item Value Reference Range Interpretation [...] S NOT APPLICABLE FOR DIALYSIS PATIEN TS. Defensive Line Coach ID - PIAYA LBASIC METABOLIC [id number] 15:17:17 Test Item Value Reference Range Interpretation [...] S NOT APPLICABLE FOR DIALYSIS PATIEN TS. Defensive Line Coach ID - DBCBC W/PLT COUNT & AUTO [id number] 14:42:15 Test Item Value Reference Range Interpretation [...] (BEAKER) (test code = 2801) HEMOGLOBIN AND [id number] 14:41:31 Test Item Value Reference Range Interpretation Comments HEMOGLOBIN (BEAKER) (test code = 9.7 GM/DL 13.7-17.5 L 410) HEMATOCRIT (BEAKER) (test code = 33.4 % 40.1-51.0 L 411) Defensive Line Coach ID - [id number], [id number] 02:24:00Unlisted Reason for Exam - Click Yes and Enter Reason Below->NoWill this procedure require oral co ntrast?->No[facility] : 1945 Sex: [...] nonobstructing left renal stone. Signed: Aman Diane [facility] Verified Date/Time:04/30/2021 02:24:34 HEMOGLOBIN [id number] 09:35:28 Test Item Value Reference Range Interpretation Comments HEMOGLOBIN A1C (BEAKER) (test code = 6.6 % 4.3-6.1 H 368) HEPATIC FUNCTION [id number] 05:59:52 Test Item Value Reference Range Interpretation [...] (test code = 38 U/L 6-55 347) Defensive Line Coach ID - MARZENA [id number] 05:59:50 Test Item Value Reference Range Interpretation Comments MAGNESIUM (BEAKER) (test code = 2.9 mg/dL 1.6-2.6 H 627) Defensive Line Coach ID - MARZENA MLIPID [id number] 05:59:50 Test Item Value Reference Range Interpretation [...] Borderline 130-159 High 160-189 Very High >=190 Defensive Line Coach ID - MARZENA MBASIC METABOLIC [id number] 05:59:49 Test Item Value Reference Range Interpretation [...] S NOT APPLICABLE FOR DIALYSIS PATIEN TS. Defensive Line Coach ID - MARZENA MB-TYPE NATRIURETIC FACTOR (BNP)2021-04-29 05:49:20 Test Item Value Reference Range Interpretation Comments B-TYPE NATRIURETIC PEPTIDE (BEAKER) 329 pg/mL 0-100 H (test code = 700) Defensive Line Coach ID - DBPROTHROMBIN TIME/[id number] 05:43:23 Test Item Value Reference Range Interpretation Comments PROTIME (BEAKER) 15.3 seconds 11.9-14.2 H (test code = 759) INR (BEAKER) (test 1.23 See_Comment [Automat ed message] code = 370) The system [employer] generated this result transmitted ref erence range: [...] (BEAKER) (test code = 2801) BASIC METABOLIC [id number] 20:29:00 Test Item Value Reference Range Interpretation [...] S NOT APPLICABLE FOR DIALYSIS PATIEN TS. Defensive Line Coach ID - [id number] 16:56:00 Test Item Value Reference Range Interpretation Comments FERRITIN (BEAKER) (test code = 13.77 ng/mL 5.00-275.00 361) Defensive Line Coach ID - DBHIGH SENSITIVITY TROPONIN [id number] 16:42:00 Test Item Value Reference Range Interpretation Comments HIGH SENSITIVITY 13 pg/ml See_Comment [Automated message] TROPONIN I (test code = The system which [id number]) generated this result transmitted ref erence range: <=35. Th e reference range was not used to int erpret this result as normal/abnormal . Defensive Line Coach ID - DBThe LAMP SHADE JOINER STAT High Sensitivity Troponin-I results should be used in conjunctionwith other diagnostic information such as ECG, clinical observations and information, and patient symptoms to aid in the diagnosis of [place].HIGH SENSITIVITY TROPONIN [id number] 16:41:00 Test Item Value Reference Range Interpretation Comments HIGH SENSITIVITY 15 pg/ml See_Comment [Automated message] TROPONIN I (test code = The system which [id number]) generated this result transmitted ref erence range: <=35. Th e reference range was not used to int erpret this result as normal/abnormal . Defensive Line Coach ID - DBThe LAMP SHADE JOINER STAT High Sensitivity Troponin-I results should be used in conjunctionwith other diagnostic information such as ECG, clinical observations and information, and patient symptoms to aid in the diagnosis of [place].IRON, TIBC, % SAT. (WITHOUT FERRITIN)2021-04-28 16:35:00 Test Item Value Reference Range Interpretation Comments IRON (BEAKER) (test code = 547) 22.0 ug/dL 40.0-160.0 L TOTAL IRON BINDING CAPACITY 473 ug/dL 250-450 H (BEAKER) (test code = 769) IRON % SATURATION (2) (BEAKER) 5 % 20-55 L (test code = 2590) Defensive Line Coach ID - DBHEMOGLOBIN AND [id number] 15:56:00 Test Item Value Reference Range Interpretation Comments HEMOGLOBIN (BEAKER) (test code = 9.2 GM/DL 13.7-17.5 L 410) HEMATOCRIT (BEAKER) (test code = 30.6 % 40.1-51.0 L 411) Defensive Line Coach ID - [id number]
[2021-07-21] MEDS ORDERED: METOPROLOL TAR 25 MG TAB ONE (15:26)
[2021-07-21 15:49] LABS: Absolute Lymphocytes (CBC) 1.5 K/uL (0.7-4.9); Basophils % 0.6 % (0-1.3); Hematocrit 29.8 % (39.6-49.0); Lymphocytes % 25.4 % (15.3-44.8); MPV 7.7 fL (7.6-11.3); RBC Red Blood Cell Count 3.75 M/uL (4.33-5.43)
--- NOTE | 2021-07-21 15:49 | RAD REPORT ---
EXAM DESCRIPTION: RAD - Chest Single View - 07/21/2021 3:24 pm CLINICAL HISTORY: Chest pain;Dyspnea COMPARISON: Portable July 12 TECHNIQUE: AP portable chest image was obtained 07/21/2021 3:24 pm . FINDINGS: Lung volumes are low. Lung parenchymal opacification not clearly different from prior imag ing. Early lung base edema or infiltrate be masked. Heart and vasculature are normal. No measurable pleural effusion and no pneumothorax. No acute bony abnormality seen. No acute aortic findings suspected. IMPRESSION: No acute cardiopulmonary process. Chest findings are not clearly different comparison.
[2021-07-21 15:53] LABS: Anisocytosis 1+; Blood Morphology Comment NOTED (NOT SEEN); Platelet Estimate ADEQ; White Blood Cell Scan OK (OK)
[2021-07-21 15:55] LABS: Protime INR 1.76
[2021-07-21 16:07] LABS: BUN Blood Urea Nitrogen 7 mg/dL (7-18); Bicarbonate 27 mmol/L (21-32); Glucose Level 115 mg/dL (74-106); NT PRO-BNP 1694 pg/mL (<450); Potassium 3.2 mmol/L (3.5-5.1); Sodium Level 142 mmol/L (136-145); Troponin (Emerg Dept Use Only) < 0.02 ng/mL (0.0-0.045)
[2021-07-21] MEDS ORDERED: LEVALBUTEROL 1.25 MG/3 ML NEB ONE (16:34)
--- NOTE | 2021-07-21 18:58 | ER ---
Nurse's Notes [facility] Name: Oleg Giles Age: 75 yrs Sex: Male : 1945 Arrival Date: 07/21/2021 Time: 13:55 Bed 12 Private MD: Willy Deshpande R Diagnosis: Chest pain, unspecified;Paroxysmal atrial fibrillation-with RVR;Unspecified combined systolic (congestive) and diastolic (congestive) heart failure;Hypoxemia Presentation: 07/21 13:58 Chief complaint: Patient states: CP and fast HR worse than usual today. Recent change ll1 in medication. Cough with blood in sputum. + nausea, no appetite. Has been happening for at least a month. Coronavirus screen: Vaccine status: Patient reports receiving the 2nd dose of the covid vaccine. Client denies travel out of the [place] in the last 14 days. congestion, cough unrelated to allergies, difficulty breathing, nausea, shortness of breath, loss of taste or smell, Client presents with at least one sign or symptom that may indicate coronavirus-19. Standard/surgical mask placed on the client. Ebola Screen: Patient denies travel to an Ebola-affected area in the 21 days before illness onset. Initial Sepsis Screen: Does the patient meet any 2 criteria? No. Patient's initial sepsis screen is negative. Does the patient have a suspected source of infection? Yes: Productive cough/pneumonia. Risk Assessment: Do you want to hurt yourself or someone else? Patient reports no desire to harm self or others. Onset of symptoms was June 21, 2021. 13:58 Method Of Arrival: Ambulatory ll1 13:58 Acuity: ALEXANDREA 3 ll1 Triage Assessment: 15:00 General: Appears in no apparent distress. Behavior is calm, quiet. Pain: Denies pain. jg9 EENT: No deficits noted. Neuro: No deficits noted. Cardiovascular: Reports "fast beating heart'. Respiratory: Breath sounds with wheezes bilaterally. GI: No deficits noted. : No deficits noted. Derm: No deficits noted. Musculoskeletal: No deficits noted. Historical: - Allergies: 14:01 No Known Allergies; ll1 - PMHx: 14:01 Atrial fibrillation; Congestive heart failure; Heart Murmur; Hypercholesterolemia; ll1 Hypertensive disorder; Pneumonia; - PSHx: 14:01 cataract repair; ll1 - Immunization history:: Client reports receiving the 2nd dose of the Covid vaccine. - Social history:: Smoking status: Patient denies any tobacco usage or history of. - Family history:: not pertinent. - Hospitalizations: : No recent hospitalization is reported. Screenin:48 Abuse screen: Denies threats or abuse. Denies injuries from another. Nutritional jg9 screening: No deficits noted. Tuberculosis screening: No symptoms or risk factors identified. Fall Risk None identified. Exposure risk/Travel Screening: None identified. Assessment: 15:51 Pain: Pain began 2-3 days ago. jg9 15:57 Pain: Denies pain. jg9 15:57 Pain:. jg9 15:57 Pain: Pain does not radiate. patient denied pain when inquired about it by this RN. jg9 16:52 Reassessment: Patient states symptoms have improved. Patient sob has decreased after jg9 breathing tx, auscultation of lungs revealed clear, anterior, posterior, bilaterally. Patient reported, "I can breath now".n. 18:52 Reassessment: Patient states symptoms have not improved. plan to admit patient per Dr. nick Cassidy. 21:00 Reassessment: Patient appears in no apparent distress at this time. Patient and/or ld1 family updated on plan of care and expected duration. Pain level reassessed. Patient is alert, oriented x 3, equal unlabored respirations, skin warm/dry/pink. Vital Signs: 13:58 BP 139 / 110; Pulse 113; Resp 18; Pulse Ox 97% on R/A; Weight 81.65 kg; Height 5 ft. 6 ll1 in. (167.64 cm); Pain 0/10; 14:08 Temp 98.0; ll1 15:05 BP 133 / 80; Pulse 105; Resp 23; jg9 15:30 BP 125 / 70; Pulse 88; Resp 19; Pulse Ox 94% on R/A; jg9 16:00 BP 115 / 71; Pulse 70; Resp 15; Pulse Ox 93% on R/A; jg9 16:45 BP 115 / 75; Pulse 75; Resp 16; Pulse Ox 98% on 2 lpm NC; jg9 17:30 BP 118 / 63; Pulse 75; Resp 19; Pulse Ox 99% on 2 lpm NC; jg9 18:00 BP 111 / 71; Pulse 76; Resp 17; Pulse Ox 98% on 2 lpm NC; jg9 21:00 BP 133 / 78; Pulse 87; Resp 18; Pulse Ox 98% on 3 lpm NC; Pain 0/10; ld1 13:58 Body Mass Index 29.05 (81.65 kg, 167.64 cm) ll1 Vitals: 15:05 Cardiac Rhythm Assessment Atrial fibrillation W/rapid ventricular response. jg9 ED Course: 13:55 Patient arrived in ED. mr 13:55 Willy Deshpande MD is Private Physician. mr 14:00 Triage completed. ll1 14:54 Arm band placed on Patient placed in an exam room, on a stretcher. jg9 14:57 Augusto Cassidy MD is Attending Physician. rn 15:00 hall monitor on. Pulse ox on. NIBP on. jg9 15:00 Patient has correct armband on for positive identification. Bed in low position. Call jg9 light in reach. 15:04 ED physician to see patient. Dr. Cassidy \\T\\ bedside. jg9 15:24 XRAY Chest (1 view) In Process Unspecified. EDMS 15:45 Inserted saline lock: 20 gauge in right forearm, using aseptic technique. Blood jg9 collected. 16:21 Oxygen administration via nasal cannula \\T\\ 2L/min O2 via Patient c/o feeling sob, spo2 jg9 94% on room air, audible wheezing noted-patient denies any hx of asthma/copd. 17:[address] Scan. jg9 18:13 Patient urinal given. jg9 18:14 No apparent distress. Resting quietly. jg9 18:15 exertional dyspnea with audible wheezing after getting up to use urinal at bedside. jg9 18:15 Inserted saline lock: 20 gauge in left forearm, using aseptic technique. jg9 18:33 CT Chest For PE Angio In Process Unspecified. EDMS 18:57 Curt Mcnally MD is Hospitalizing Provider. rn 19:18 COVID-19 SARS RT PCR (Document "Date of Onset" if Symptomatic) Sent. jg9 19:19 iv infiltrated in r forearm. jg9 21:09 No provider procedures requiring assistance completed. ld1 Administered Medications: 15:29 Drug: Metoprolol 25 mg Route: PO; jg9 16:38 Drug: Xopenex (levalbuterol) 1.25 mg Route: Inhalation; jg9 16:50 Follow up: Response: No adverse reaction; Wheezing diminished jg9 19:15 Drug: Lasix (furosemide) 20 mg Route: IVP; Site: left femoral; jg9 Outcome: 18:13 Condition: breathing improved with o2 jg9 18:58 Decision to Hospitalize by Provider. rn 21:09 Admitted to ICU accompanied by tech, via wheelchair, room 1, with chart, Report called ld1 to DI Sanders 21:09 Instructed on the need for admit. 21:47 Patient left the ED. ld1 Signatures: Dispatcher [employer] Lyric Logan Roman, MD MD rn Lewis, Lynsay, RN RN ll Angela Williamson RN RN ld1 Trena Matthews jg9 Corrections: (The following items were deleted from the chart) 14:54 14:01 Arm band placed on Patient placed in an exam room, on a stretcher, [facility] jg9
--- NOTE | 2021-07-21 18:59 | EDPHYS ---
Physician Documentation [facility] Name: Oleg Giles Age: 75 yrs Sex: Male : 1945 Arrival Date: 07/21/2021 Time: 13:55 Bed 12 Private MD: Willy Deshpande R ED Physician Augusto Cassidy HPI: 07/21 15:28 This 75 yrs old Male presents to ER via Ambulatory with complaints of Chest rn Pain, Fast Heart rate. 15:29 The patient presents with a history of irregular heart beat, heart racing. Context: The rn symptoms occur at rest. Onset: The symptoms/episode began/occurred at an unknown time. Duration: The patient or guardian reports multiple episodes, that are intermittent. Modifying factors: The symptoms are aggravated by nothing. The symptoms are alleviated by nothing. Associated signs and symptoms: Pertinent positives: chest pain, nausea, Pertinent negatives: fever, syncope. Severity of symptoms: At their worst the symptoms were moderate in the emergency department the symptoms have improved. The patient has experienced similar episodes in the past. The patient has been recently seen by a physician:. Patient reports palpitations, feels heart racing, feels like his atrial fibrillation is acting up. Recently saw commodities manager and taken off of metoprolol and placed on another medication. Reports taken off of metoprolol because was feeling nauseous in the mornings after breakfast and commodities manager thought it might be adverse effect. Atrial fibrillation was well controlled on metoprolol. Took this new medication for the first time a couple days ago, still having nausea and feels heart racing and pounding. Denies any chest pressure. Daughter states patient is also very anxious and when heart races he feels worse and feels like he cannot breathe. Rail Bonder told him recently that his heart was strong and no evidence of heart attack. Denies any vomiting or diarrhea. No fever.. Historical: - Allergies: 14:01 No Known Allergies; ll1 - PMHx: 14:01 Atrial fibrillation; Congestive heart failure; Heart Murmur; Hypercholesterolemia; ll1 Hypertensive disorder; Pneumonia; - PSHx: 14:01 cataract repair; ll1 - Immunization history:: Client reports receiving the 2nd dose of the Covid vaccine. - Social history:: Smoking status: Patient denies any tobacco usage or history of. - Family history:: not pertinent. - Hospitalizations: : No recent hospitalization is reported. ROS: 15:29 Constitutional: Negative for fever, chills, and weight loss, Eyes: Negative for injury, rn pain, redness, and discharge, Neck: Negative for injury, pain, and swelling, Cardiovascular: Negative for edema Respiratory: Negative for wheezing, and pleuritic chest pain, Abdomen/GI: Negative for abdominal pain, vomiting, diarrhea, and constipation, Back: Negative for injury and pain, : Negative for injury, bleeding, discharge, and swelling, MS/Extremity: Negative for injury and deformity, Skin: Negative for injury, rash, and discoloration, Neuro: Negative for headache, weakness, numbness, tingling, and seizure. Exam: 15:29 Constitutional: This is a well developed, well nourished patient who is awake, alert, rn appears anxious Head/Face: Normocephalic, atraumatic. Eyes: Periorbital areas with no swelling, redness, or edema. Cardiovascular: Tachycardic, irregular. No pulse deficits Respiratory: Mild tachypnea, speaking full sentences. Abdomen/GI: Soft, non-tender, no masses Skin: Warm, dry MS/ Extremity: Pulses equal, no cyanosis. Neuro: Awake and alert, GCS 15, oriented to person, place, time, and situation. Cranial nerves II-XII grossly intact. Motor strength 5/5 in all extremities. Sensory grossly intact. Vital Signs: 13:58 BP 139 / 110; Pulse 113; Resp 18; Pulse Ox 97% on R/A; Weight 81.65 kg; Height 5 ft. 6 ll1 in. (167.64 cm); Pain 0/10; 14:08 Temp 98.0; ll1 15:05 BP 133 / 80; Pulse 105; Resp 23; jg9 15:30 BP 125 / 70; Pulse 88; Resp 19; Pulse Ox 94% on R/A; jg9 16:00 BP 115 / 71; Pulse 70; Resp 15; Pulse Ox 93% on R/A; jg9 16:45 BP 115 / 75; Pulse 75; Resp 16; Pulse Ox 98% on 2 lpm NC; jg9 17:30 BP 118 / 63; Pulse 75; Resp 19; Pulse Ox 99% on 2 lpm NC; jg9 18:00 BP 111 / 71; Pulse 76; Resp 17; Pulse Ox 98% on 2 lpm NC; jg9 21:00 BP 133 / 78; Pulse 87; Resp 18; Pulse Ox 98% on 3 lpm NC; Pain 0/10; ld1 13:58 Body Mass Index 29.05 (81.65 kg, 167.64 cm) ll1 MDM: 14:57 Patient medically screened. 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 Pt denies bleeding. Hemoglobin 9.2 today.. 18:51 Differential diagnosis: arrythmia, dehydration, afib with rvr, CHF exacerbation. Data rn reviewed: vital signs, nurses notes, lab test result(s), EKG, radiologic studies, plain films, and as a result, I will admit patient. Counseling: I had a detailed discussion with the patient and/or guardian regarding: the historical points, exam findings, and any diagnostic results supporting the discharge/admit diagnosis, lab results, radiology results, the need for further work-up and treatment in the hospital. Response to treatment: the patient's symptoms have mildly improved after treatment, and as a result, I will admit patient. Admission orders: after a detailed discussion of the patient's condition and case, the admit orders are written by me. 07/21 15:12 Order name: Basic Metabolic Panel; Complete Time: 16:14 rn 07/21 15:12 Order name: CBC with Diff; Complete Time: 15:55 rn 07/21 15:12 Order name: NT PRO-BNP; Complete Time: 16:14 rn 07/21 15:12 Order name: PT-INR; Complete Time: 16:14 rn 07/21 15:12 Order name: Troponin (emerg Dept Use Only); Complete Time: 16:14 rn 07/21 15:53 Order name: CBC Smear Scan; Complete Time: 15:55 EDMS 07/21 15:12 Order name: XRAY Chest (1 view); Complete Time: 15:49 rn 07/21 15:12 Order name: EKG; Complete Time: 15:13 rn 07/21 17:07 Order name: CT Chest For PE Angio rn 07/21 19:01 Order name: COVID-19 SARS RT PCR (Document "Date of Onset" if Symptomatic) 07/21 19:11 Order name: CONS Physician Consult EDAZ 07/21 15:12 Order name: Cardiac monitoring; Complete Time: 15:19 rn 07/21 15:12 Order name: EKG - Nurse/Tech; Complete Time: 15:19 rn 07/21 15:12 Order name: IV Saline Lock; Complete Time: 16:26 rn 07/21 15:12 Order name: Labs collected and sent; Complete Time: 16:26 rn 07/21 15:12 Order name: O2 Per Protocol; Complete Time: 16:26 rn 07/21 15:12 Order name: O2 Sat Monitoring; Complete Time: 16:26 rn Administered Medications: 15:29 Drug: Metoprolol 25 mg Route: PO; jg9 16:38 Drug: Xopenex (levalbuterol) 1.25 mg Route: Inhalation; jg9 16:50 Follow up: Response: No adverse reaction; Wheezing diminished jg9 19:15 Drug: Lasix (furosemide) 20 mg Route: IVP; Site: left femoral; jg9 Disposition Summary: 07/21/21 18:58 Hospitalization Ordered Hospitalization Status: Inpatient Admission rn Provider: Curt Mcnally rn Condition: Stable rn Problem: new rn Symptoms: have improved rn Bed/Room Type: Standard rn Location: Intensive Care Unit(07/21/21 20:59) mw Room Assignment: 1-(07/21/21 20:59) mw Diagnosis - Chest pain, unspecified rn - Paroxysmal atrial fibrillation - with RVR rn - Unspecified combined systolic (congestive) and diastolic (congestive) heart failure rn - Hypoxemia rn Forms: - Medication Reconciliation Form rn - SBAR form rn Signatures: Dispatcher [employer] [facility] Claire Du RN RN Augusto Addison MD MD rn Lewis, Lynsay RN RN Trena Marie jg9 Corrections: (The following items were deleted from the chart) 20:59 18:58 Telemetry/MedSurg (Inpatient) rn 20:59 18:58 rn mw
[2021-07-21] MEDS ORDERED: FUROSEMIDE 20 MG TABLET ONE (19:04)
[2021-07-21] MEDS ORDERED: FUROSEMIDE 40 MG/4 ML VIAL ONE (19:07)
--- NOTE | 2021-07-21 19:08 | RAD REPORT ---
EXAM DESCRIPTION: CT - Chest For Pe Angio - 07/21/2021 6:31 pm CLINICAL HISTORY: Dyspnea;Hemoptysis COMPARISON: Chest For Pe Angio dated 04/28/2021; Chest Single View dated 07/21/2021 TECHNIQUE: Dynamically enhanced 3 mm thick images of the chest were obtained during administration o f approximately 150mL Isovue 370 IV contrast. Coronal and oblique MIP reconstruction images were gene rated and reviewed. Exam utilizes a protocol to evaluate the pulmonary arterial tree. All CT scans are performed using dose optimization technique as appropriate and may include automated exposure control or mA/KV adjustment according to patient size. FINDINGS: No pulmonary emboli are identified. The aorta as imaged shows no acute or suspicious finding. No pericardial thickening or effusion. Card iomegaly No infiltrate or mass in the lung parenchyma. Minimal left pleural effusion is present similar to com parison. Moderate-sized right pleural effusion is present increased from April 28 imaging. There is partial atelectasis of the right lower lobe. Trace amount of atelectasis in the posterior gutter o n the left. No mediastinal or hilar suspicious masses. No chest wall masses or abnormal axillary lymphadenopathy. IMPRESSION: No pulmonary emboli identified. Significant cardiomegaly with moderate-sized right pleural effusion increased from comparison.Lung ma rkings are mildly prominent and CHF/volume overload is suspected.
--- NOTE | 2021-07-21 20:31 | P.HP ---
Certification for Inpatient Patient admitted to: Inpatient With expected LOS: >2 Midnights Patient will require the following post-hospital care: None Practitioner: I am a practitioner with admitting privileges, knowledge of patient current condition, hospital course, and medical plan of care. Services: Services provided to patient in accordance with Admission requirements found in Title 42 Section 412.3 of the Code of Federal Regulations Patient History Date of Service: 07/21/21 Reason for admission: CHF exacerbation, afib w/ RVR History of Present Illness: Mr. Giles is a 75 yo M with chronic atrial fibrillation on anticoagulation, CHF, AoCD, HLD, HTN who presents with one day of palpitations and anxiety. He was recently switched from metoprolol to verapamil for his atrial fibrillation and has been experiencing intermittent palpitations since then. He also reports wheezing, SOB, UREÑA, cough for the past month. In the ED, he desats to the 80s on room air if he even tries to stand up to urinate. He says this has been ongoing since his recent COVID infection. He also reports anorexia and nausea, and weight loss of 20lbs secondary to his poor appetite. H/H 9.2 MCV 79.6 K 3.2 BNP 1694 CTPE IMPRESSION: No pulmonary emboli identified. Significant cardiomegaly with moderate-sized right pleural effusion increased from comparison.Lung markings are mildly prominent and CHF/volume overload is suspected. Allergies No Known Allergies Allergy (Verified 07/09/21 05:35) Home Medications: Apixaban [Eliquis] 5 mg PO BID 06/26/21 Atorvastatin Calcium 20 mg PO DAILY 06/26/21 Docusate [Colace Cap*] 100 mg PO DAILY #30 cap 06/27/21 Ferrous Sulfate 325 mg PO BID #60 06/27/21 Metoprolol Tartrate [Lopressor] 75 mg PO BID #90 tablet 06/30/21 Benzonatate 100 mg PO QID 07/09/21 Furosemide 40 mg PO DAILY 07/09/21 Omeprazole [Prilosec] 20 mg PO DAILY 07/09/21 Zinc Sulfate [Zinc Sulfate*] 220 mg PO DAILY 07/09/21 Trazodone HCl 50 mg PO BEDTIME #15 tablet 07/10/21 levoFLOXacin [Levaquin] 750 mg PO DAILY #7 tab 07/10/21 - Past Medical/Surgical History Diabetic: No -: Atrial fibrillation on chronic anticoagulation therapy -: Hypertension -: History of CVA -: Hyperlipidemia -: Anemia of chronic disease with iron deficiency -: GERD -: Diastolic CHF -: History of Covid infection, vaccinated -: Incision and drainage right thigh -: cataract sx carol Psychosocial/ Personal History: Patient lives at home. He is - Family History Father -: Diabetes, Stroke - Social History Smoking Status: Unknown if ever smoked Alcohol use: No CD- Drugs: No Caffeine use: Yes Place of Residence: Home Review of Systems 10-point ROS is otherwise unremarkable General: Unremarkable Eyes: Unremarkable ENT: Unremarkable Respiratory: Cough, Shortness of Breath, SOB with Excertion, Wheezing, As per HPI Cardiovascular: Palpitations, As per HPI Gastrointestinal: Nausea, As per HPI Genitourinary: Unremarkable Musculoskeletal: Unremarkable Integumentary: Unremarkable Neurological: Unremarkable Lymphatics: Unremarkable Physical Examination - Physical Exam General: Alert, In no apparent distress HEENT: Atraumatic, PERRLA, Mucous membr. moist/pink, EOMI, Sclerae nonicteric Neck: Supple, 2+ carotid pulse no bruit, No LAD, Without JVD or thyroid abnormality Respiratory: Diminished, Crackles/rales Cardiovascular: No edema, Normal S1 S2, Irregular heart rate/rhythm Gastrointestinal: Normal bowel sounds, No tenderness Musculoskeletal: No tenderness Integumentary: No rashes Neurological: Normal speech, Normal strength at 5/5 x4 extr, Normal tone, Normal affect Lymphatics: No axilla or inguinal lymphadenopathy - Studies Laboratory Data (last 24 hrs) 07/21/21 15:40: PT 20.3 H, INR 1.76 07/21/21 15:40: WBC 5.90, Hgb 9.2 L, Hct 29.8 L, Plt Count 292 D 07/21/21 15:40: Sodium 142, Potassium 3.2 L, BUN 7, Creatinine 0.93, Glucose 115 H Assessment and Plan - Problems (Diagnosis) (1) HLD (hyperlipidemia) Current Visit: Yes Status: Chronic Qualifiers: Hyperlipidemia type: unspecified Qualified Code(s): E78.5 - Hyperlipidemia, unspecified (2) Hypoxia Current Visit: Yes Status: Acute (3) Anemia of chronic disease Current Visit: Yes Status: Chronic (4) Anorexia Current Visit: Yes Status: Acute (5) Acute on chronic diastolic heart failure Current Visit: No Status: Acute (6) Chronic atrial fibrillation Current Visit: No Status: Chronic (7) History of COVID-19 Current Visit: No Status: Chronic (8) Hypertension Onset Date: 06/17/17 Current Visit: No Status: Chronic Qualifiers: Hypertension type: primary hypertension Qualified Code(s): I10 - Essential (primary) hypertension - Plan cardiology consulted, ECHO pending continue IV lasix, fluid restrict 1500cc daily, daily weights, low sodium diet RT consulted, O2 as needed, breathing treatments as needed, ABG pending continue metoprolol BID iron panel pending potassium replacement dietitian consulted reconcile and continue home medications DVT ppx Discharge Plan: Home Plan to discharge in: 72 Hours - Advance Directives Does patient have a Living Will: No Does patient have a Durable POA for Healthcare: No - Code Status/Comfort Care Code Status Assessed: Yes (full code ) Critical Care: No Time Spent Managing Pts Care (In Minutes): 70
[2021-07-21] MEDS ORDERED: ACETAMINOPHEN 500 MG TAB PO PRN (21:19)
[2021-07-21] MEDS ORDERED: IPRATROPIUM BROM 0.5MG/2.5ML NEB PRN (21:19)
[2021-07-21] MEDS ORDERED: LEVALBUTEROL 1.25 MG/3 ML NEB NEB PRN (21:19)
[2021-07-21 22:20] VITALS: BMI 28.4
[2021-07-21] MEDS ORDERED: POTASSIUM CL SA 10 MEQ TAB PO STA (22:50)
[2021-07-21] MEDS: APIXABAN 5 MG TABLET PO SCH (23:03)
[2021-07-21] MEDS: FERROUS SULFATE 325 MG TAB PO SCH (23:03)
[2021-07-21] MEDS: TRAZODONE 50 MG TABLET PO SCH (23:06)
[2021-07-22] MEDS: ONDANSETRON 4 MG/2 ML VIAL IV PRN ×3 (04:03→23:30)
[2021-07-22 05:27] LABS: Absolute Lymphocytes (CBC) 1.5 K/uL (0.7-4.9); Hematocrit 27.9 % (39.6-49.0); Lymphocytes % 27.8 % (15.3-44.8); MPV 7.9 fL (7.6-11.3)
[2021-07-22 05:57] LABS: Albumin 2.7 g/dL (3.4-5.0); Bilirubin Total 0.4 mg/dL (0.2-1.0); Ferritin 23.4 ng/mL (26-388); Magnesium 2.4 mg/dL (1.8-2.4); Phosphorus 3.7 mg/dL (2.5-4.9); Potassium 3.5 mmol/L (3.5-5.1); Protein, Total 5.9 g/dL (6.4-8.2); Thyroid Stimulating Hormone 0.912 uIU/mL (0.360-3.740)
[2021-07-22] MEDS: PANTOPRAZOLE 40MG TABLET PO SCH (06:04)
[2021-07-22] MEDS: METOPROLOL TAR 25 MG TAB PO SCH ×2 (06:04→17:24)
[2021-07-22] MEDS ORDERED: POTASSIUM CL SA 10 MEQ TAB PO ONE (08:00)
[2021-07-22] MEDS ORDERED: VERAPAMIL HCL 120 MG PO SCH (09:00)
[2021-07-22] MEDS: DOCUSATE NA 100 MG CAP PO SCH (09:21)
[2021-07-22] MEDS: FUROSEMIDE 40 MG/4 ML VIAL IV SCH ×2 (09:21→17:24)
[2021-07-22] MEDS: ATORVASTATIN 20 MG TAB PO SCH (09:21)
[2021-07-22] MEDS: APIXABAN 5 MG TABLET PO SCH ×2 (09:21→20:14)
[2021-07-22] MEDS: FERROUS SULFATE 325 MG TAB PO SCH ×2 (09:21→20:14)
[2021-07-22] MEDS ORDERED: METOCLOPRAMIDE 10 MG/2mL INJ IV ONE (12:00)
[2021-07-22] MEDS ORDERED: LORazepam 2 MG/ML VIAL IV ONE (12:11)
[2021-07-22] MEDS ORDERED: AMIODARONE HCL 150 MG in D5W 100 ML IV STA (12:28)
[2021-07-22] MEDS: AMIODARONE HCL 900 MG in Dextrose 5%-Water 482 ML IV SCH (12:45)
[2021-07-22] MEDS: BENZONATATE 100 MG CAP PO PRN (20:14)
[2021-07-22] MEDS: TRAZODONE 50 MG TABLET PO SCH (20:14)
[2021-07-22] MEDS: ENSURE ENLIVE 237 ML CAN PO SCH (20:30)
[2021-07-22] MEDS ORDERED: LORAZEPAM 0.5 MG TABLET PO ONE (23:29)
[2021-07-23 04:52] LABS: Absolute Lymphocytes (CBC) 1.6 K/uL (0.7-4.9); Basophils % 0.9 % (0-1.3); Hematocrit 27.4 % (39.6-49.0); Lymphocytes % 24.1 % (15.3-44.8); MPV 8.2 fL (7.6-11.3); RBC Red Blood Cell Count 3.48 M/uL (4.33-5.43)
[2021-07-23 05:03] LABS: Magnesium 2.6 mg/dL (1.8-2.4); Potassium 3.5 mmol/L (3.5-5.1)
[2021-07-23 05:20] LABS: C-Reactive Protein 27.8 mg/L (<3.00); Ferritin 23.6 ng/mL (26-388); Phosphorus 3.1 mg/dL (2.5-4.9)
[2021-07-23] MEDS: PANTOPRAZOLE 40MG TABLET PO SCH (06:24)
--- NOTE | 2021-07-23 07:50 | RAD REPORT ---
EXAM DESCRIPTION: CT - Abdomen Pelvis W Contrast - 07/23/2021 5:57 am CLINICAL HISTORY: abd distention COMPARISON: Abdomen Pelvis W Contrast dated 03/06/2021; Chest For Pe Angio dated 07/21/2021 TECHNIQUE: Biphasic, helical CT imaging of the abdomen and pelvis was performed following 100 ml non -ionic IV contrast. No oral contrast administered. All CT scans are performed using dose optimization technique as appropriate and may include automated exposure control or mA/KV adjustment according to patient size. FINDINGS: Small left-side and small to moderate right-sided pleural effusions are present similar to the July 21 CT chest study. Cardiomegaly without pericardial thickening or effusion again noted. Atelectasis is present in each lung base. No focal liver lesion identified. No portal vein abnormality. Spleen and pancreas are unremarkable. N o biliary tree dilatation. Gallbladder is normal size. Gallstones can be occult. There is significant motion on the upper abdomen imaging limiting ability to evaluate the gallbladder wall. Hyperdensity within the lumen of the gallbladder is believed be vicarious excretion of contrast. Concerns for an a cute gallbladder process can be addressed with a follow-up limited gallbladder ultrasound. Symmetric renal function is seen with no hydronephrosis or suspicious renal mass. No pyelonephritis o r acute parenchymal process. A 3 centimeter left renal cyst is present anterior mid left kidney. No p erinephric stranding. No adrenal abnormalities. Partially filled urinary bladder is hyperdense believ ed be from contrast on this examination the July 21 study. No bladder stone identified. Prostate gland and seminal vesicles within range of normal. No dilated bowel loops or bowel wall thickening. Acute bowel process is not seen. Metallic density is seen in the proximal stomach and cecum region of the colon. Assessment is limited by the amount of m otion. These may be clips from prior endoscopic polypectomy. No acute changes in the bowel adjacent t o these metallic foci. Significance is doubtful. No free air, free fluid or inflammatory stranding. No mass or bulky lymphadenopathy. Fat extends in to the origin of each inguinal canal similar to comparison. No suspicious bony findings. IMPRESSION: There is no ascites, bowel dilatation or other finding to explain abdominal distention h istory. As detailed above, no acute abdominal or pelvic finding identifiable. Pleural effusions and atelectasis in each lung base along with cardiomegaly match the July 21 CT s tudy.
[2021-07-23] MEDS: FUROSEMIDE 40 MG/4 ML VIAL IV SCH ×2 (08:52→16:31)
[2021-07-23] MEDS: FERROUS SULFATE 325 MG TAB PO SCH ×2 (08:53→20:09)
[2021-07-23] MEDS: ENSURE ENLIVE 237 ML CAN PO SCH ×2 (08:53→20:08)
[2021-07-23] MEDS: ATORVASTATIN 20 MG TAB PO SCH (08:53)
[2021-07-23] MEDS: APIXABAN 5 MG TABLET PO SCH ×2 (08:53→20:09)
[2021-07-23] MEDS: DOCUSATE NA 100 MG CAP PO SCH (08:55)
[2021-07-23] MEDS ORDERED: POTASSIUM CL SA 10 MEQ TAB PO ONE (09:00)
--- NOTE | 2021-07-23 09:53 | P.PN ---
Subjective Date of Service: 07/22/21 Patient's abdomen is distended. He has been nauseated throughout the day. He states he just does not feel well and is not resting well. Give him some anti emetics and also some send help him relax a little bit. Patient just had a CT angio of the chest so will do CT abdomen and pelvis in a.m.. Patient does not appear to have an acute abdomen but he is distended and he is having nausea so will further investigate. Repeat labs in the morning. Review of Systems 10-point ROS is otherwise unremarkable Physical Examination - Vital Signs Temperature: 97.7 F Blood Pressure: 109/64 Pulse: 89 Respirations: 21 Pulse Ox (%): 96 - Physical Exam General: Alert, In no apparent distress, Oriented x3 HEENT: Atraumatic, PERRLA, EOMI Neck: Supple, JVD not distended Respiratory: Crackles/rales Cardiovascular: Irregular heart rate/rhythm Gastrointestinal: Hypoactive, No tenderness, No rebound, No guarding, Distended Musculoskeletal: No clubbing, No swelling, No tenderness Integumentary: No rashes Neurological: Normal speech, Normal tone, Normal affect Lymphatics: No axilla or inguinal lymphadenopathy - Studies Medications List Reviewed: Yes Assessment & Plan - Problems (Diagnosis) (1) Shortness of breath Current Visit: Yes Status: Acute (2) Atrial fibrillation with rapid ventricular response Current Visit: Yes Status: Acute (3) Nausea & vomiting Current Visit: Yes Status: Acute (4) Abdominal distension Current Visit: Yes Status: Acute (5) Pleural effusion Current Visit: Yes Status: Acute - Plan Plan: 1. Continue amiodarone drip 2. CT abdomen and pelvis 3. Anti emetics 4. Anxiolytics 5. Respiratory status is stable; patient with pleural effusion on CT of the chest. If no recent echo will repeat 6. GI and DVT prophylaxis Discharge Plan: Home Plan to discharge in: Greater than 2 days - Advance Directives Does patient have a Living Will: No Does patient have a Durable POA for Healthcare: No - Code Status/Comfort Care Code Status Assessed: Yes Code Status: Full Code Critical Care: No Time Spent Managing PTS Care (In Minutes): 35
--- NOTE | 2021-07-23 10:00 | P.PN ---
Date of Service: 07/23/21 Subjective Continues on amiodarone drip. CT of the abdomen and pelvis did not reveal any significant abnormalities. Pleural effusion once again seen. Echocardiogram pending in the morning Review of Systems 10-point ROS is otherwise unremarkable Physical Examination - Vital Signs - Physical Exam General: Alert, In no apparent distress, Oriented x3 Respiratory: Crackles/rales Cardiovascular: Irregular heart rate/rhythm Gastrointestinal: Hypoactive, No tenderness, No rebound, No guarding, Distended Musculoskeletal: No clubbing, No swelling, No tenderness Neurological: Normal speech, Normal tone, Normal affect Assessment & Plan - Problems (Diagnosis) (1) Shortness of breath Current Visit: Yes Status: Acute (2) Atrial fibrillation with rapid ventricular response Current Visit: Yes Status: Acute (3) Nausea & vomiting Current Visit: Yes Status: Acute (4) Abdominal distension Current Visit: Yes Status: Acute (5) Pleural effusion Current Visit: Yes Status: Acute - Plan Continue with plan of care as mentioned below: 1. Continue amiodarone drip 2. CT abdomen and pelvis without any significant abnormalities except for pleural effusion; echocardiogram pending. 3. Nausea improved advanced diet as tolerated 4. Continue with Anxiolytics 5. Respiratory status is stable; patient with pleural effusion on CT of the chest. If no recent echo will repeat 6. GI and DVT prophylaxis
[2021-07-23] MEDS: AMIODARONE HCL 900 MG in Dextrose 5%-Water 482 ML IV SCH (14:32)
[2021-07-23] MEDS: TRAZODONE 50 MG TABLET PO SCH (20:09)
[2021-07-23] MEDS: LORAZEPAM 0.5 MG TABLET PO PRN (20:09)
[2021-07-24 05:24] LABS: Magnesium 2.4 mg/dL (1.8-2.4); Phosphorus 3.1 mg/dL (2.5-4.9); Potassium 3.6 mmol/L (3.5-5.1)
[2021-07-24] MEDS: BENZONATATE 100 MG CAP PO PRN (05:45)
[2021-07-24] MEDS: PANTOPRAZOLE 40MG TABLET PO SCH (05:45)
--- NOTE | 2021-07-24 05:59 | P.PN ---
Subjective Date of Service: 07/24/21 Chief Complaint: CHF exacerbation, afib w/ RVR Subjective: Other (Overall stable. Heart rate improved.) Physical Examination - Vital Signs Temperature: 98.1 F Blood Pressure: 114/61 Pulse: 85 Respirations: 23 Pulse Ox (%): 96 - Studies Medications List Reviewed: Yes Assessment & Plan Discharge Plan: Other (SNF) Plan to discharge in: Greater than 2 days Physician Review Additional Text: COVID: Positive CT Chest: COMPARISON: Chest For Pe Angio dated 04/28/2021; Chest Single View dated 07/21/2021 TECHNIQUE: Dynamically enhanced 3 mm thick images of the chest were obtained during administration of approximately 150mL Isovue 370 IV contrast. Coronal and oblique MIP reconstruction images were generated and reviewed. Exam utilizes a protocol to evaluate the pulmonary arterial tree. All CT scans are performed using dose optimization technique as appropriate and may include automated exposure control or mA/KV adjustment according to patient size. FINDINGS: No pulmonary emboli are identified. The aorta as imaged shows no acute or suspicious finding. No pericardial thickening or effusion. Cardiomegaly No infiltrate or mass in the lung parenchyma. Minimal left pleural effusion is present similar to comparison. Moderate-sized right pleural effusion is present increased from April 28 imaging. There is partial atelectasis of the right lower lobe. Trace amount of atelectasis in the posterior gutter on the left. No mediastinal or hilar suspicious masses. No chest wall masses or abnormal axillary lymphadenopathy. IMPRESSION: No pulmonary emboli identified. Significant cardiomegaly with moderate-sized right pleural effusion increased from comparison.Lung markings are mildly prominent and CHF/volume overload is suspected CT AB/Pelvis: COMPARISON: Abdomen Pelvis W Contrast dated 03/06/2021; Chest For Pe Angio dated 07/21/2021 TECHNIQUE: Biphasic, helical CT imaging of the abdomen and pelvis was performed following 100 ml non-ionic IV contrast. No oral contrast administered. All CT scans are performed using dose optimization technique as appropriate and may include automated exposure control or mA/KV adjustment according to patient size. FINDINGS: Small left-side and small to moderate right-sided pleural effusions are present similar to the July 21 CT chest study. Cardiomegaly without pericardial thickening or effusion again noted. Atelectasis is present in each lung base. No focal liver lesion identified. No portal vein abnormality. Spleen and pancreas are unremarkable. No biliary tree dilatation. Gallbladder is normal size. Gallstones can be occult. There is significant motion on the upper abdomen imaging limiting ability to evaluate the gallbladder wall. Hyperdensity within the lumen of the gallbladder is believed be vicarious excretion of contrast. Concerns for an acute gallbladder process can be addressed with a follow-up limited gallbladder ultrasound. Symmetric renal function is seen with no hydronephrosis or suspicious renal mass. No pyelonephritis or acute parenchymal process. A 3 centimeter left renal cyst is present anterior mid left kidney. No perinephric stranding. No adrenal abnormalities. Partially filled urinary bladder is hyperdense believed be from contrast on this examination the July 21 study. No bladder stone identified. Prostate gland and seminal vesicles within range of normal. No dilated bowel loops or bowel wall thickening. Acute bowel process is not seen. Metallic density is seen in the proximal stomach and cecum region of the colon. Assessment is limited by the amount of motion. These may be clips from prior endoscopic polypectomy. No acute changes in the bowel adjacent to these metallic foci. Significance is doubtful. No free air, free fluid or inflammatory stranding. No mass or bulky lymphadenopathy. Fat extends into the origin of each inguinal canal similar to comparison. No suspicious bony findings. IMPRESSION: There is no ascites, bowel dilatation or other finding to explain abdominal distention history. As detailed above, no acute abdominal or pelvic finding identifiable. Pleural effusions and atelectasis in each lung base along with cardiomegaly match the July 21 CT study. Follow up CXR: COMPARISON: Chest Single View dated 07/24/2021 FINDINGS: Right-sided pleural effusion appears partially loculated. Free- flowing component of this effusion on the right measures maximally 2 cm in thickness. Small volume left effusion is also present maximally measuring 15 mm in layering component. Physical exam: General: Alert, In no apparent distress, Oriented x3 HEENT: Atraumatic, PERRLA, EOMI Neck: Supple, JVD not distended Respiratory: Crackles/rales. Currently on room air Cardiovascular: Atrial fibrillation. Rate controlled. Gastrointestinal: Hypoactive, No tenderness, No rebound, No guarding, Distended Musculoskeletal: No clubbing, No swelling, No tenderness Integumentary: No rashes Neurological: Normal speech, Normal tone, Normal affect Lymphatics: No axilla or inguinal lymphadenopathy Impression: Shortness of breath with significant cardiomegaly, bilateral right greater than left pleural effusion with noted partial loculation secondary to acute on chronic CHF Atrial fibrillation with RVR Nausea and vomiting Anemia chronic disease Hemorrhoids Hyperlipidemia Plan: Spoke with cardiology. Will transition from IV amiodarone to oral 400 mg twice daily. Spoke with pulmonology. Pulmonology has adjusted IV Lasix. Decubitus x-ray shows right-sided pleural effusion partially loculated. Small volume on the left lung noted. Will discuss further with pulmonology about plan of care. Patient to have hemorrhoidectomy in the near future. Monitor hemoglobin. Maintain hemoglobin above 8.0. Continue iron supplementation Physical therapy to assess ambulation. Spoke at length with daughter and patient. Both agree about the possibility of skilled placement. DVT prophylaxis: Eliquis CODE STATUS: Full code Advanced care minutes: long term facility Time Spent Managing Pts Care (In Minutes): 55
--- NOTE | 2021-07-24 08:29 | P.CNS ---
Date of Consult: 07/24/21 Reason for Consult: pleural effusion Chief Complaint: CHF exacerbation, afib w/ RVR History of Present Illness: Patient is 68 patient is 75 years of age with a history of chronic A. fib hypertension presented to the emergency room with palpitation anxiety was found to be in A. fib patient has been vaccinated against coronavirus still tested positive was found to be a little hypoxic with right-sided pleural effusion also lost some weight about 20 pounds currently doing better on IV amiodarone has some shortness of breath Allergies No Known Allergies Allergy (Verified 07/09/21 05:35) Home Medications: Apixaban [Eliquis] 5 mg PO BID 06/26/21 Atorvastatin Calcium 20 mg PO DAILY 06/26/21 Docusate [Colace Cap*] 100 mg PO DAILY #30 cap 06/27/21 Ferrous Sulfate 325 mg PO BID #60 06/27/21 Benzonatate 100 mg PO QID 07/09/21 Furosemide 40 mg PO DAILY 07/09/21 Omeprazole [Prilosec] 20 mg PO DAILY 07/09/21 Zinc Sulfate [Zinc Sulfate*] 220 mg PO DAILY 07/09/21 Trazodone HCl 50 mg PO BEDTIME #15 tablet 07/10/21 Ondansetron [Zofran] 4 mg PO Q8H PRN 07/21/21 Verapamil HCl [Verapamil Sr] 120 mg PO DAILY 07/21/21 - Past Medical/Surgical History Diabetic: No -: Atrial fibrillation on chronic anticoagulation therapy -: Hypertension -: History of CVA -: Hyperlipidemia -: Anemia of chronic disease with iron deficiency -: GERD -: Diastolic CHF -: History of Covid infection, vaccinated -: Incision and drainage right thigh -: cataract sx carol Psychosocial/ Personal History: Patient lives at home. He is - Family History Father Medical History: Diabetes, Stroke - Social History Smoking Status: Never smoker Alcohol use: No CD- Drugs: No Caffeine use: Yes Place of Residence: Home Review of Systems General: Weakness Respiratory: Cough, Shortness of Breath Physical Examination Temp Pulse Resp BP Pulse Ox 98.1 F 83 15 94/45 L 97 07/24/21 05:59 07/24/21 06:00 07/24/21 06:00 07/24/21 06:00 07/24/21 06:00 General: Alert, In no apparent distress, Oriented x3 Respiratory: Diminished (On the right side) Cardiovascular: Irregular heart rate/rhythm - Problems (1) Chronic diastolic heart failure Current Visit: No Status: Acute Plan: Patient is 75 years of age admitted with shortness of breath is tested positive for coronavirus has been vaccinated has bilateral effusions right greater than the left microcytic anemia I ordered bilateral decub reduce dose of Lasix patient has chronic AF CT pulmonary angiogram gram no evidence of thromboembolism he does have pleural effusion right greater than the left patient currently anticoagulated
[2021-07-24] MEDS ORDERED: POTASSIUM CL SA 10 MEQ TAB PO ONE (09:00)
--- NOTE | 2021-07-24 09:26 | RAD REPORT ---
EXAM DESCRIPTION: RAD - Chest Single View - 07/24/2021 7:09 am CLINICAL HISTORY: follow up pleural effusions Chest pain. COMPARISON: Chest Single View dated 07/21/2021; Chest Single View dated 07/12/2021; Chest Single View dated 07/08/2021; Chest Single View dated 06/30/2021; Chest For Pe Angio dated 07/21/2021 FINDINGS: Portable technique limits examination quality. Moderate asymmetric pulmonary opacities are present, greater on the right. The findings are moderatel y progressive since the comparative study. Right pleural effusion appears unchanged. The heart is sig nificantly enlarged. IMPRESSION: Moderate worsening in right lung aeration is seen since the comparative study.
--- NOTE | 2021-07-24 09:37 | RAD REPORT ---
EXAM DESCRIPTION: RAD - Chest Lateral Decubitus - 07/24/2021 9:24 am CLINICAL HISTORY: right effusion Right-sided pleural effusion COMPARISON: Chest Single View dated 07/24/2021 FINDINGS: Right-sided pleural effusion appears partially loculated. Free-flowing component of this e ffusion on the right measures maximally 2 cm in thickness. Small volume left effusion is also present maximally measuring 15 mm in layering component.
[2021-07-24] MEDS: FERROUS SULFATE 325 MG TAB PO SCH ×2 (09:47→20:32)
[2021-07-24] MEDS: ATORVASTATIN 20 MG TAB PO SCH (09:48)
[2021-07-24] MEDS: APIXABAN 5 MG TABLET PO SCH ×2 (09:48→20:32)
[2021-07-24] MEDS: FUROSEMIDE 40 MG/4 ML VIAL IV SCH (09:50)
[2021-07-24] MEDS: ENSURE ENLIVE 237 ML CAN PO SCH ×2 (09:52→21:19)
[2021-07-24] MEDS: DOCUSATE NA 100 MG CAP PO SCH (10:39)
[2021-07-24] MEDS: AMIODARONE HCL 200 MG TAB PO SCH ×2 (10:39→20:32)
[2021-07-24] MEDS: LORAZEPAM 0.5 MG TABLET PO PRN (10:47)
[2021-07-24] MEDS: LACTULOSE 20 GM/30 ML UCUP PO PRN (18:22)
[2021-07-24] MEDS: TRAZODONE 50 MG TABLET PO SCH (20:32)
[2021-07-25 05:01] LABS: Absolute Lymphocytes (CBC) 1.9 K/uL (0.7-4.9); Basophils % 1.2 % (0-1.3); Hematocrit 33.5 % (39.6-49.0); Lymphocytes % 26.6 % (15.3-44.8); MPV 8.1 fL (7.6-11.3); RBC Red Blood Cell Count 4.23 M/uL (4.33-5.43)
[2021-07-25 05:15] LABS: Magnesium 2.5 mg/dL (1.8-2.4); Potassium 3.8 mmol/L (3.5-5.1)
[2021-07-25] MEDS: PANTOPRAZOLE 40MG TABLET PO SCH (05:52)
--- NOTE | 2021-07-25 05:52 | P.PN ---
Subjective Date of Service: 07/25/21 Chief Complaint: CHF exacerbation, afib w/ RVR Subjective: Other (Overall stable. Shortness of breath slight improvement noted) Physical Examination - Vital Signs Temperature: 97.8 F Blood Pressure: 104/63 Pulse: 95 Respirations: 18 Pulse Ox (%): 99 - Studies Medications List Reviewed: Yes Assessment & Plan Discharge Plan: Other (intermediate facility) Plan to discharge in: 48 Hours Physician Review Additional Text: COVID: Positive CT Chest: COMPARISON: Chest For Pe Angio dated 04/28/2021; Chest Single View dated 07/21/2021 TECHNIQUE: Dynamically enhanced 3 mm thick images of the chest were obtained during administration of approximately 150mL Isovue 370 IV contrast. Coronal and oblique MIP reconstruction images were generated and reviewed. Exam utilizes a protocol to evaluate the pulmonary arterial tree. All CT scans are performed using dose optimization technique as appropriate and may include automated exposure control or mA/KV adjustment according to patient size. FINDINGS: No pulmonary emboli are identified. The aorta as imaged shows no acute or suspicious finding. No pericardial t hickening or effusion. Cardiomegaly No infiltrate or mass in the lung parenchyma. Minimal left pleural effusion is present similar to comparison. Moderate-sized right pleural effusion is present increased from April 28 imaging. There is partial atelectasis of the right lower lobe. Trace amount of atelectasis in the posterior gutter on the left. No mediastinal or hilar suspicious masses. No chest wall masses or abnormal axillary lymphadenopathy. IMPRESSION: No pulmonary emboli identified. Significant cardiomegaly with moderate-sized right pleural effusion increased from comparison.Lung markings are mildly prominent and CHF/volume overload is suspected CT AB/Pelvis: COMPARISON: Abdomen Pelvis W Contrast dated 03/06/2021; Chest For Pe Angio dated 07/21/2021 TECHNIQUE: Biphasic, helical CT imaging of the abdomen and pelvis was performed following 100 ml non-ionic IV contrast. No oral contrast administered. All CT scans are performed using dose optimization technique as appropriate and may include automated exposure control or mA/KV adjustment according to patient size. FINDINGS: Small left-side and small to moderate right-sided pleural effusions a re present similar to the July 21 CT chest study. Cardiomegaly without pericardial thickening or effusion again noted. Atelectasis is present in each lung base. No focal liver lesion identified. No portal vein abnormality. Spleen and pancreas are unremarkable. No biliary tree dilatation. Gallbladder is normal size. Gallstones can be occult. There is significant motion on the upper abdomen imaging limiting ability to evaluate the gallbladder wall. Hyperdensity within the lumen of the gallbladder is believed be vicarious excretion of contrast. Concerns for an acute gallbladder process can be addressed with a follow-up limited gallbladder ultrasound. Symmetric renal function is seen with no hydronephrosis or suspicious renal mass. No pyelonephritis or acute parenchymal process. A 3 centimeter left renal cyst is present anterior mid left kidney. No perinephric stranding. No adrenal abnormalities. Partially filled urinary bladder is hyperdense believed be from contrast on this examination the July 21 study. No bladder stone identified. Prostate gland and seminal vesicles within range of normal. No dilated bowel loops or bowel wall thickening. Acute bowel process is not seen. Metallic density is seen in the proximal stomach and cecum region of the colon. Assessment is limited by the amount of motion. These may be clips from prior endoscopic polypectomy. No acute changes in the bowel adjacent to these metallic foci. Significance is doubtful. No free air, free fluid or inflammatory stranding. No mass or bulky lymphadenopathy. Fat extends into the origin of each inguinal canal similar to comparison. No suspicious bony findings. IMPRESSION: There is no ascites, bowel dilatation or other finding to explain abdominal distention history. As detailed above, no acute abdominal or pelvic finding identifiable. Pleural effusions and atelectasis in each lung base along with cardiomegaly match the July 21 CT study. Follow up CXR: COMPARISON: Chest Single View dated 07/24/2021 FINDINGS: Right-sided pleural effusion appears partially loculated. Free- flowing component of this effusion on the right measures maximally 2 cm in thickness. Small volume left effusion is also present maximally measuring 15 mm in layering component. Physical exam: General: Alert, In no apparent distress, Oriented x3 HEENT: Atraumatic, PERRLA, EOMI Neck: Supple, JVD not distended Respiratory: Crackles/rales. Currently on room air Cardiovascular: Atrial fibrillation. Rate controlled. Gastrointestinal: Hypoactive, No tenderness, No rebound, No guarding, Distended Musculoskeletal: No clubbing, No swelling, No tenderness Integumentary: No rashes Neurological: Normal speech, Normal tone, Normal affect Lymphatics: No axilla or inguinal lymphadenopathy Impression: Shortness of breath with significant cardiomegaly, bilateral right greater than left pleural effusion with noted partial loculation secondary to acute on chronic CHF Atrial fibrillation with RVR Nausea and vomiting Anemia chronic disease Hemorrhoids Hyperlipidemia Plan: Continue with current plan of care. Patient now on amiodarone 400 mg 1 pill twice daily. Continue Eliquis. Patient with significant CHF. Continue with IV Lasix. Pulmonology has adjusted medication. Continue fluid restriction. Patient with right-sided partially loculated effusion. No intervention required at this time. Patient is scheduled for hemorrhoidectomy in the future. Case discussed at length with cardiology. Patient will need to have continued skilled therapy until patient is significantly improved before planned procedure. Continue to maintain hemoglobin above 8.0. Continue iron supplementation. Patient and family agreeable to skilled placement. Await approval. Patient to continue work with physical therapy. DVT prophylaxis: Eliquis CODE STATUS: Full code Advanced care [id number] minutes: intermediate facility Time Spent Managing Pts Care (In Minutes): 55
[2021-07-25] MEDS ORDERED: POTASSIUM CL SA 10 MEQ TAB PO ONE (06:00)
[2021-07-25] MEDS: DOCUSATE NA 100 MG CAP PO SCH (07:41)
[2021-07-25] MEDS: FUROSEMIDE 40 MG/4 ML VIAL IV SCH (07:41)
[2021-07-25] MEDS: FERROUS SULFATE 325 MG TAB PO SCH ×2 (07:41→20:31)
[2021-07-25] MEDS: ATORVASTATIN 20 MG TAB PO SCH (07:41)
[2021-07-25] MEDS: AMIODARONE HCL 200 MG TAB PO SCH ×2 (07:41→20:31)
[2021-07-25] MEDS: APIXABAN 5 MG TABLET PO SCH ×2 (07:41→20:31)
[2021-07-25] MEDS: ENSURE ENLIVE 237 ML CAN PO SCH ×2 (07:43→20:33)
--- NOTE | 2021-07-25 07:59 | RAD REPORT ---
EXAM DESCRIPTION: RAD - Chest Single View - 07/25/2021 5:45 am CLINICAL HISTORY: Follow-up pleural effusions COMPARISON: Chest Single View dated 07/24/2021; Chest Single View dated 07/21/2021; Chest Single View dated 07/12/2021; Chest Single View dated 07/08/2021; Abdomen Pelvis W Contrast dated 07/23/2021; Ch est For Pe Angio dated 07/21/2021 FINDINGS: Lines: None. Lungs: Pulmonary edema with more focal airspace disease at the right lung base again noted. Pleural: Question layering pleural effusions. Cardiac: Cardiomegaly. Bones: No acute fractures. Other: IMPRESSION: Layering pleural effusions with pulmonary edema without significant change compared with 07/24/2021.
--- NOTE | 2021-07-25 08:02 | ECHO ---
HEIGHT: 5 ft 6 in WEIGHT: 173 lb 4.8 oz DATE OF STUDY: 07/24/[address]: Kameron Donohue 2-DIMENSIONAL: YES M.MODE: YES DOPPLER: YES COLOR FLOW: YES TDS: NO PORTABLE: NO DEFINITY: NO BUBBLE STUDY: NO DIAGNOSIS: CONGESTIVE HEART FAILURE CARDIAC HISTORY: CATHERIZATION: SURGERY: PROSTHETIC VALVE: PACEMAKER: MEASUREMENTS (cm) DIASTOLIC (NORMALS) SYSTOLIC (NORMALS) IVSd 1.4 (0.6-1.2) LA Diam 4.6 (1.9-4.0) LVEF 37% LVIDd 5.5 (3.5-5.7) LVIDs 4.5 (2.0-3.5) %FS 18% LVPWd 1.3 (0.6-1.2) Ao Diam 2.8 (2.0-3.7) 2 DIMENSIONAL ASSESSMENT: RIGHT ATRIUM: NORMAL LEFT ATRIUM: NORMAL RIGHT VENTRICLE: NORMAL LEFT VENTRICLE: DEPRESSED TRICUSPID VALVE: MILD TRICUSPID REGURGITATION MITRAL VALVE: SEVERE MITRAL REGURGITATION PULMONIC VALVE: NORMAL AORTIC VALVE: MILD AORTIC REGURGITATION PERICARDIAL EFFUSION: SMALL AORTIC ROOT: NORMAL LEFT VENTRICULAR WALL MOTION: MODERATE GLOBAL HYPOKINESIS. DOPPLER/COLOR FLOW: SEE BELOW. COMMENTS: MODERATELY DEPRESSED LEFT VENTRICULAR EJECTION FRACTION 35-40%. MODERATE GLOBAL HYPOKINESIS. LIKELY SEVERE MITRAL REGURGITATION WITH EXCENTRIC JET AND POSSIBLY FLAIL ANTERIOR LEAFLET. RECOMMEND TRANSESOPHAGEAL ECHOCARDIOGRAM. MILD TRICUSPID REGURGITATION, MILD AORTIC REGURGITATION. TECHNOLOGIST: KYRA MARIE
[2021-07-25] MEDS: LORAZEPAM 0.5 MG TABLET PO PRN ×2 (14:35→23:41)
[2021-07-25] MEDS: TRAZODONE 50 MG TABLET PO SCH (20:31)
--- NOTE | 2021-07-25 20:42 | PN ---
Date of Progress Note: 07/24/2021 Subjective: Mr. Giles was admitted with atrial fibrillation, congestive heart failure, has been resistant to amiodarone, although his rate has been controlled. He has good O2 saturation and is fee ling better. However, an echocardiogram showed severe mitral regurgitation, ejection fraction 37%. It was recommended for him that when he goes home to have a transesophageal echocardiogram to evaluat e his mitral valve better. Otherwise, I will continue his present regimen. However, because of his low ejection fraction, I think patient is on verapamil already, is on Eliquis, is on Lasix, but he ma y benefit from a low-dose SOHEILA inhibitor, and I will discuss that with the caring physician at this po int. Otherwise, continue present regimen. MICHAEL/RICHA Voice ID: [id number] Report ID: [id number]
--- NOTE | 2021-07-25 21:13 | CON ---
Date of Consultation: 07/22/[address] Mcnally through the ICU on 07/21/2021. Reason For Consultation: Atrial fibrillation, rapid ventricular response and congestive heart failur e. History Of Present Illness: Mr. Giles is a 75-year-old male. He came into the hospital with palpitation and chest pain and shortness of breath. He has had PND, orthopnea, pedal edema, pa lpitation, but no syncope. Denied any fever or chills. He has had atrial fibrillation before, which was controlled, but had to be taken off metoprolol because it would make him very nauseated after he took it. He had had a normal echocardiogram not too long before his admission. Past Medical History: Basically positive for atrial fibrillation, diastolic congestive heart failure , hypercholesterolemia, hypertension, and pneumonia. Allergies: NONE. Review of Systems: Negative. Social History: Negative. Family History: Negative. Medications: At home were Eliquis, Lipitor, iron, Lasix omeprazole, trazodone, verapamil 120 daily, and zinc. Physical Examination: Vital Signs: His heart rate when he came in was 113. Blood pressure was adequate. HEENT: Negative. Neck: Supple with no bruit. Chest: Clear. Cardiac: Exam revealed atrial fibrillation. Abdomen: Benign. Extremities: Revealed no clubbing, cyanosis. He had trace edema. Diagnostic Data: His EKG showed atrial fibrillation. Creatinine was 1. Hemoglobin was 10.1. Jazmine l white count. Magnesium and potassium were normal. Impression And Plan: Atrial fibrillation, paroxysmal, recurrent. We will put him on amiodarone IV. Continue Eliquis. Continue Lipitor, iron, and Lasix for his congestive heart failure. Continue his pantoprazole, potassium. Obtain a 2D echocardiogram. We will see how he does. MICHAEL/RICHA Voice ID: [id number] Report ID: [id number]
[2021-07-26 05:11] LABS: Absolute Lymphocytes (CBC) 0.1 K/uL (0.7-4.9); Basophils % 0.1 % (0-1.3); Hematocrit 35.4 % (39.6-49.0); Lymphocytes % 0.8 % (15.3-44.8); MPV 7.3 fL (7.6-11.3); RBC Red Blood Cell Count 3.85 M/uL (4.33-5.43)
[2021-07-26 05:32] LABS: BUN Blood Urea Nitrogen 29 mg/dL (7-18); Bicarbonate 34 mmol/L (21-32); Glucose Level 162 mg/dL (74-106); Magnesium 2.7 mg/dL (1.8-2.4); Potassium 3.9 mmol/L (3.5-5.1); Sodium Level 145 mmol/L (136-145)
[2021-07-26] MEDS ORDERED: POTASSIUM CL SA 10 MEQ TAB PO ONE (05:40)
[2021-07-26] MEDS: PANTOPRAZOLE 40MG TABLET PO SCH (05:45)
--- NOTE | 2021-07-26 05:55 | P.PN ---
Subjective Date of Service: 07/26/21 Chief Complaint: CHF exacerbation, afib w/ RVR Subjective: Improving, Doing well Physical Examination - Vital Signs Temperature: 97.9 F Blood Pressure: 106/65 Pulse: 84 Respirations: 18 Pulse Ox (%): 96 - Studies Medications List Reviewed: Yes Assessment & Plan Discharge Plan: Other (shelter facility) Plan to discharge in: 24 Hours Physician Review Additional Text: COVID: Positive CT Chest: COMPARISON: Chest For Pe Angio dated 04/28/2021; Chest Single View dated 07/21/2021 TECHNIQUE: Dynamically enhanced 3 mm thick images of the chest were obtained during administration of approximately 150mL Isovue 370 IV contrast. Coronal and oblique MIP reconstruction images were generated and reviewed. Exam utilizes a protocol to evaluate the pulmonary arterial tree. All CT scans are performed using dose optimization technique as appropriate and may include automated exposure control or mA/KV adjustment according to patient size. FINDINGS: No pulmonary emboli are identified. The aorta as imaged shows no acute or suspicious finding. No pericardial thickening or effusion. Cardiomegaly No infiltrate or mass in the lung parenchyma. Minimal left pleural effusion is present similar to comparison. Moderate-sized right pleural effusion is present increased from April 28 imaging. There is partial atelectasis of the right lower lobe. Trace amount of atelectasis in the posterior gutter on the left. No mediastinal or hilar suspicious masses. No chest wall masses or abnormal axillary lymphadenopathy. IMPRESSION: No pulmonary emboli identified. Significant cardiomegaly with moderate-sized right pleural effusion increased from comparison.Lung markings are mildly prominent and CHF/volume overload is suspected CT AB/Pelvis: COMPARISON: Abdomen Pelvis W Contrast dated 03/06/2021; Chest For Pe Angio dated 07/21/2021 TECHNIQUE: Biphasic, helical CT imaging of the abdomen and pelvis was performed following 100 ml non-ionic IV contrast. No oral contrast administered. All CT scans are performed using dose optimization technique as appropriate and may include automated exposure control or mA/KV adjustment according to patient size. FINDINGS: Small left-side and small to moderate right-sided pleural effusions are present similar to the July 21 CT chest study. Cardiomegaly without pericardial thickening or effusion again noted. Atelectasis is present in each lung base. No focal liver lesion identified. No portal vein abnormality. Spleen and pancreas are unremarkable. No biliary tree dilatation. Gallbladder is normal size. Gallstones can be occult. There is significant motion on the upper abdomen imaging limiting ability to evaluate the gallbladder wall. Hyperdensity within the lumen of the gallbladder is believed be vicarious excretion of contrast. Concerns for an acute gallbladder process can be addressed with a follow-up limited gallbladder ultrasound. Symmetric renal function is seen with no hydronephrosis or suspicious renal mass. No pyelonephritis or acute parenchymal process. A 3 centimeter left renal cyst is present anterior mid left kidney. No perinephric stranding. No adrenal abnormalities. Partially filled urinary bladder is hyperdense believed be from contrast on this examination the July 21 study. No bladder stone tabby ntified. Prostate gland and seminal vesicles within range of normal. No dilated bowel loops or bowel wall thickening. Acute bowel process is not seen. Metallic density is seen in the proximal stomach and cecum region of the colon. Assessment is limited by the amount of motion. These may be clips from prior endoscopic polypectomy. No acute changes in the bowel adjacent to these metallic foci. Significance is doubtful. No free air, free fluid or inflammatory stranding. No mass or bulky lymphadenopathy. Fat extends into the origin of each inguinal canal similar to comparison. No suspicious bony findings. IMPRESSION: There is no ascites, bowel dilatation or other finding to explain abdominal distention history. As detailed above, no acute abdominal or pelvic finding identifiable. Pleural effusions and atelectasis in each lung base along with cardiomegaly match the July 21 CT study. Follow up CXR: COMPARISON: Chest Single View dated 07/24/2021 FINDINGS: Right-sided pleural effusion appears partially loculated. Free- flowing component of this effusion on the right measures maximally 2 cm in thickness. Small volume left effusion is also present maximally measuring 15 mm in layering component. Physical exam: General: Alert, In no apparent distress, Oriented x3 HEENT: Atraumatic, PERRLA, EOMI Neck: Supple, JVD not distended Respiratory: Crackles/rales. Currently on room air Cardiovascular: Atrial fibrillation. Rate controlled. Gastrointestinal: Hypoactive, No tenderness, No rebound, No guarding, Distended Musculoskeletal: No clubbing, No swelling, No tenderness Integumentary: No rashes Neurological: Normal speech, Normal tone, Normal affect Lymphatics: No axilla or inguinal lymphadenopathy Impression: Shortness of breath with significant cardiomegaly, bilateral right greater than left pleural effusion with noted partial loculation secondary to acute on chronic CHF Atrial fibrillation with RVR Nausea and vomiting Anemia chronic disease Hemorrhoids Hyperlipidemia Plan: Patient reports improvement. Patient did work with physical therapy. Patient awaiting to be approved for skilled placement. Patient remains on amiodarone 400 mg 1 pill twice daily. Continue Eliquis 5 mg 1 pill twice daily. Continue with IV Lasix 40 mg daily. Will transition to oral medication within the next 1 to 2 days. Pulmonology has adjusted medication. Continue fluid restriction. Patient with right-sided partially loculated effusion. No intervention required at this time. Patient is scheduled for hemorrhoidectomy in the future. Case discussed at length with cardiology. Patient will need to have continued skilled therapy until patient is significantly improved before planned procedure. Continue to maintain hemoglobin above 8.0. Continue iron supplementation. Patient and family agreeable to skilled placement. Await approval. Patient to continue work with physical therapy. DVT prophylaxis: Eliquis CODE STATUS: Full code Advanced care [id number] minutes: residential facility Time Spent Managing Pts Care (In Minutes): 55
[2021-07-26 07:29] LABS: Blood Morphology Comment NOT SEEN (NOT SEEN); Platelet Estimate ADEQ
[2021-07-26] MEDS: DOCUSATE NA 100 MG CAP PO SCH (07:53)
[2021-07-26] MEDS: APIXABAN 5 MG TABLET PO SCH ×2 (07:53→20:09)
[2021-07-26] MEDS: FERROUS SULFATE 325 MG TAB PO SCH ×2 (07:53→20:10)
[2021-07-26] MEDS: ATORVASTATIN 20 MG TAB PO SCH (07:54)
[2021-07-26] MEDS: ENSURE ENLIVE 237 ML CAN PO SCH ×2 (07:55→20:10)
[2021-07-26] MEDS: AMIODARONE HCL 200 MG TAB PO SCH ×2 (08:18→20:09)
[2021-07-26] MEDS: FUROSEMIDE 40 MG/4 ML VIAL IV SCH (08:18)
[2021-07-26] MEDS: ONDANSETRON 4 MG/2 ML VIAL IV PRN ×2 (09:18→17:55)
[2021-07-26] MEDS: LORAZEPAM 0.5 MG TABLET PO PRN (11:55)
[2021-07-26] MEDS: LACTULOSE 20 GM/30 ML UCUP PO PRN (20:08)
[2021-07-26] MEDS: TRAZODONE 50 MG TABLET PO SCH (20:09)
[2021-07-27] MEDS: LORAZEPAM 0.5 MG TABLET PO PRN ×2 (02:06→19:18)
[2021-07-27 05:13] LABS: Potassium 3.4 mmol/L (3.5-5.1)
--- NOTE | 2021-07-27 05:41 | P.PN ---
Subjective Date of Service: 07/27/21 Chief Complaint: CHF exacerbation, afib w/ RVR Subjective: Improving, Doing well Physical Examination - Vital Signs Temperature: 97.3 F Blood Pressure: 112/68 Pulse: 108 Respirations: 19 Pulse Ox (%): 96 - Studies Medications List Reviewed: Yes Assessment & Plan Discharge Plan: Other ([facility]) Plan to discharge in: 24 Hours Physician Review Additional Text: COVID: Positive CT Chest: COMPARISON: Chest For Pe Angio dated 04/28/2021; Chest Single View dated 07/21/2021 TECHNIQUE: Dynamically enhanced 3 mm thick images of the chest were obtained during administration of approximately 150mL Isovue 370 IV contrast. Coronal and oblique MIP reconstruction images were generated and reviewed. Exam utilizes a protocol to evaluate the pulmonary arterial tree. All CT scans are performed using dose optimization technique as appropriate and may include automated exposure control or mA/KV adjustment according to patient size. FINDINGS: No pulmonary emboli are identified. The aorta as imaged shows no acute or suspicious finding. No pericardial thickening or effusion. Cardiomegaly No infiltrate or mass in the lung parenchyma. Minimal left pleural effusion is present similar to comparison. Moderate-sized right pleural effusion is present increased from April 28 imaging. There is partial atelectasis of the right lower lobe. Trace amount of atelectasis in the posterior gutter on the left. No mediastinal or hilar suspicious masses. No chest wall masses or abnormal axillary lymphadenopathy. IMPRESSION: No pulmonary emboli identified. Significant cardiomegaly with moderate-sized right pleural effusion increased from comparison.Lung markings are mildly prominent and CHF/volume overload is suspected CT AB/Pelvis: COMPARISON: Abdomen Pelvis W Contrast dated 03/06/2021; Chest For Pe Angio dated 07/21/2021 TECHNIQUE: Biphasic, helical CT imaging of the abdomen and pelvis was performed following 100 ml non-ionic IV contrast. No oral contrast administered. All CT scans are performed using dose optimization technique as appropriate and may include automated exposure control or mA/KV adjustment according to patient size. FINDINGS: Small left-side and small to moderate right-sided pleural effusions are present similar to the July 21 CT chest study. Cardiomegaly without pericardial thickening or effusion again noted. Atelectasis is present in each lung base. No focal liver lesion identified. No portal vein abnormality. Spleen and pancreas are unremarkable. No biliary tree dilatation. Gallbladder is normal size. Gallstones can be occult. There is significant motion on the upper abdomen imaging limiting ability to evaluate the gallbladder wall. Hyperdensity within the lumen of the gallbladder is believed be vicarious excretion of contrast. Concerns for an acute gallbladder process can be addressed with a follow-up limited gallbladder ultrasound. Symmetric renal function is seen with no hydronephrosis or suspicious renal mass. No pyelonephritis or acute parenchymal process. A 3 centimeter left renal cyst is present anterior mid left kidney. No perinephric stranding. No adrenal abnormalities. Partially filled urinary bladder is hyperdense believed be from contrast on this examination the July 21 study. No bladder stone id entified. Prostate gland and seminal vesicles within range of normal. No dilated bowel loops or bowel wall thickening. Acute bowel process is not seen. Metallic density is seen in the proximal stomach and cecum region of the colon. Assessment is limited by the amount of motion. These may be clips from prior endoscopic polypectomy. No acute changes in the bowel adjacent to these metallic foci. Significance is doubtful. No free air, free fluid or inflammatory stranding. No mass or bulky lymphadenopathy. Fat extends into the origin of each inguinal canal similar to comparison. No suspicious bony findings. IMPRESSION: There is no ascites, bowel dilatation or other finding to explain abdominal distention history. As detailed above, no acute abdominal or pelvic finding identifiable. Pleural effusions and atelectasis in each lung base along with cardiomegaly match the July 21 CT study. Follow up CXR: COMPARISON: Chest Single View dated 07/24/2021 FINDINGS: Right-sided pleural effusion appears partially loculated. Free- flowing component of this effusion on the right measures maximally 2 cm in thickness. Small volume left effusion is also present maximally measuring 15 mm in layering component. Physical exam: General: Alert, In no apparent distress, Oriented x3 HEENT: Atraumatic, PERRLA, EOMI Neck: Supple, JVD not distended Respiratory: Crackles/rales. Currently on room air Cardiovascular: Atrial fibrillation. Rate controlled. Gastrointestinal: Hypoactive, No tenderness, No rebound, No guarding, Distended Musculoskeletal: No clubbing, No swelling, No tenderness Integumentary: No rashes Neurological: Normal speech, Normal tone, Normal affect Lymphatics: No axilla or inguinal lymphadenopathy Impression: Shortness of breath with significant cardiomegaly, bilateral right greater than left pleural effusion with noted partial loculation secondary to acute on chronic CHF Atrial fibrillation with RVR Nausea and vomiting Anemia chronic disease Hemorrhoids Hyperlipidemia Plan: Shortness of breath with significant cardiomegaly, bilateral right greater than left pleural effusion with noted partial loculation secondary to acute on chronic CHF/Atrial fibrillation with RVR: Patient continues to do well with physical therapy. Patient remains on amiodarone 400 mg 1 pill twice daily. Continue Eliquis 5 mg 1 pill twice daily. Will transition to Lasix 40 mg daily oral. Continue fluid restriction. No intervention required for right-sided partially loculated effusion. Case discussed at length with pulmonology. Awaiting approval for skilled placement. Anemia chronic disease: Overall stable. Will monitor closely. Continue iron supplementation Hemorrhoids: Patient is scheduled for hemorrhoidectomy in the future. Case discussed at length with cardiology. Patient will need to have continued skilled therapy until patient is significantly improved before planned procedure. Continue to maintain hemoglobin above 8.0. Hyperlipidemia: Continue with this medication DVT prophylaxis: Eliquis CODE STATUS: Full code [facility] Time Spent Managing Pts Care (In Minutes): 55
[2021-07-27] MEDS: PANTOPRAZOLE 40MG TABLET PO SCH (05:46)
[2021-07-27] MEDS ORDERED: POTASSIUM CL SA 10 MEQ TAB PO ONE (06:00)
[2021-07-27] MEDS: APIXABAN 5 MG TABLET PO SCH ×2 (08:42→19:18)
[2021-07-27] MEDS: ATORVASTATIN 20 MG TAB PO SCH (08:42)
[2021-07-27] MEDS: DOCUSATE NA 100 MG CAP PO SCH (08:42)
[2021-07-27] MEDS: FERROUS SULFATE 325 MG TAB PO SCH ×2 (08:42→19:19)
[2021-07-27] MEDS: AMIODARONE HCL 200 MG TAB PO SCH ×2 (08:43→19:18)
[2021-07-27] MEDS: ONDANSETRON 4 MG/2 ML VIAL IV PRN (08:47)
[2021-07-27] MEDS: FUROSEMIDE 40 MG TABLET PO SCH (09:00)
[2021-07-27] MEDS: ENSURE ENLIVE 237 ML CAN PO SCH ×2 (09:10→19:19)
[2021-07-27] MEDS: TRAZODONE 50 MG TABLET PO SCH (19:18)
[2021-07-28 01:02] VITALS: TEMP 97.6
[2021-07-28] MEDS: LORAZEPAM 0.5 MG TABLET PO PRN (02:30)
[2021-07-28 05:39] LABS: Potassium 4.1 mmol/L (3.5-5.1)
--- NOTE | 2021-07-28 05:47 | P.PN ---
Subjective Date of Service: 07/28/21 Chief Complaint: CHF exacerbation, afib w/ RVR Subjective: Doing well Physical Examination - Vital Signs Temperature: 97.6 F Blood Pressure: 99/77 Pulse: 89 Respirations: 20 Pulse Ox (%): 98 - Studies Medications List Reviewed: Yes Assessment & Plan [facility] to [facility] in: 24 Hours Physician Review Additional Text: COVID: Positive CT Chest: COMPARISON: Chest For Pe Angio dated 04/28/2021; Chest Single View dated 07/21/2021 TECHNIQUE: Dynamically enhanced 3 mm thick images of the chest were obtained during administration of approximately 150mL Isovue 370 IV contrast. Coronal and oblique MIP reconstruction images were generated and reviewed. Exam utilizes a protocol to evaluate the pulmonary arterial tree. All CT scans are performed using dose optimization technique as appropriate and may include automated exposure control or mA/KV adjustment according to patient size. FINDINGS: No pulmonary emboli are identified. The aorta as imaged shows no acute or suspicious finding. No pericardial thickening or effusion. Cardiomegaly No infiltrate or mass in the lung parenchyma. Minimal left pleural effusion is present similar to comparison. Moderate-sized right pleural effusion is present increased from April 28 imaging. There is partial atelectasis of the right lower lobe. Trace amount of atelectasis in the posterior gutter on the left. No mediastinal or hilar suspicious masses. No chest wall masses or abnormal axillary lymphadenopathy. IMPRESSION: No pulmonary emboli identified. Significant cardiomegaly with moderate-sized right pleural effusion increased from comparison.Lung markings are mildly prominent and CHF/volume overload is suspected CT AB/Pelvis: COMPARISON: Abdomen Pelvis W Contrast dated 03/06/2021; Chest For Pe Angio dated 07/21/2021 TECHNIQUE: Biphasic, helical CT imaging of the abdomen and pelvis was performed following 100 ml non-ionic IV contrast. No oral contrast administered. All CT scans are performed using dose optimization technique as appropriate and may include automated exposure control or mA/KV adjustment according to patient size. FINDINGS: Small left-side and small to moderate right-sided pleural effusions are present similar to the July 21 CT chest study. Cardiomegaly without pericardial thickening or effusion again noted. Atelectasis is present in each lung base. No focal liver lesion identified. No portal vein abnormality. Spleen and pancre as are unremarkable. No biliary tree dilatation. Gallbladder is normal size. Gallstones can be occult. There is significant motion on the upper abdomen imaging limiting ability to evaluate the gallbladder wall. Hyperdensity within the lumen of the gallbladder is believed be vicarious excretion of contrast. Concerns for an acute gallbladder process can be addressed with a follow-up limited gallbladder ultrasound. Symmetric renal function is seen with no hydronephrosis or suspicious renal mass. No pyelonephritis or acute parenchymal process. A 3 centimeter left renal cyst is present anterior mid left kidney. No perinephric stranding. No adrenal abnormalities. Partially filled urinary bladder is hyperdense believed be from contrast on this examination the July 21 study. No bladder stone identified. Prostate gland and seminal vesicles within range of normal. No dilated bowel loops or bowel wall thickening. Acute bowel process is not seen. Metallic density is seen in the proximal stomach and cecum region of the colon. Assessment is limited by the amount of motion. These may be clips from prior endoscopic polypectomy. No acute changes in the bowel adjacent to these metallic foci. Significance is doubtful. No free air, free fluid or inflammatory stranding. No mass or bulky lymphadenopathy. Fat extends into the origin of each inguinal canal similar to comparison. No suspicious bony findings. IMPRESSION: There is no ascites, bowel dilatation or other finding to explain abdominal distention history. As detailed above, no acute abdominal or pelvic finding identifiable. Pleural effusions and atelectasis in each lung base along with cardiomegaly match the July 21 CT study. Follow up CXR: COMPARISON: Chest Single View dated 07/24/2021 FINDINGS: Right-sided pleural effusion appears partially loculated. Free- flowing component of this effusion on the right measures maximally 2 cm in thickness. Small volume left effusion is also present maximally measuring 15 mm in layering component. Physical exam: General: Alert, In no apparent distress, Oriented x3 HEENT: Atraumatic, PERRLA, EOMI Neck: Supple, JVD not distended Respiratory: Crackles/rales. Currently on room air Cardiovascular: Atrial fibrillation. Rate controlled. Gastrointestinal: Hypoactive, No tenderness, No rebound, No guarding, Distended Musculoskeletal: No clubbing, No swelling, No tenderness Integumentary: No rashes Neurological: Normal speech, Normal tone, Normal affect Lymphatics: No axilla or inguinal lymphadenopathy Impression: Shortness of breath with significant cardiomegaly, bilateral right greater than left pleural effusion with noted partial loculation secondary to acute on chronic CHF Atrial fibrillation with RVR Nausea and vomiting Anemia chronic disease Hemorrhoids Hyperlipidemia Plan: Shortness of breath with significant cardiomegaly, bilateral right greater than left pleural effusion with noted partial loculation secondary to acute on chronic CHF/Atrial fibrillation with RVR: Patient continues to do well with physical therapy. Patient remains on amiodarone 400 mg 1 pill twice daily. Continue Eliquis 5 mg 1 pill twice daily. Will transition to Lasix 40 mg daily oral. Continue fluid restriction. No intervention required for right-sided partially loculated effusion. Case discussed at length with pulmonology. [facility] Anemia chronic disease: Overall stable. Will monitor closely. Continue iron supplementation Hemorrhoids: Patient is scheduled for hemorrhoidectomy in the future. Case discussed at length with cardiology. Patient will need to have continued skilled therapy until patient is significantly improved before planned procedure. Continue to maintain hemoglobin above 8.0. Hyperlipidemia: Continue with this medication DVT prophylaxis: Kobi CODE STATUS: Full code [facility] care [id number] minutes: [facility] Time Spent Managing Pts Care (In Minutes): 55
[2021-07-28] MEDS: PANTOPRAZOLE 40MG TABLET PO SCH (05:56)
[2021-07-28 07:52] VITALS: O2SAT 92
[2021-07-28] MEDS: AMIODARONE HCL 200 MG TAB PO SCH (08:33)
[2021-07-28] MEDS: DOCUSATE NA 100 MG CAP PO SCH (08:34)
[2021-07-28] MEDS: FERROUS SULFATE 325 MG TAB PO SCH (08:34)
[2021-07-28] MEDS: ATORVASTATIN 20 MG TAB PO SCH (08:34)
[2021-07-28] MEDS: APIXABAN 5 MG TABLET PO SCH (08:34)
[2021-07-28] MEDS: FUROSEMIDE 40 MG TABLET PO SCH (08:35)
[2021-07-28] MEDS: ENSURE ENLIVE 237 ML CAN PO SCH (08:41)
--- NOTE | 2021-07-28 09:17 | P.DS ---
Admission Date: 07/21/21 Discharge Date: 07/28/21 Primary Care Provider: Dr. Deshpande Disposition: TRANSFER TO SNF - MEDICAL Discharge Condition: GOOD Reason for Admission: CHF exacerbation, afib w/ RVR Consultations: Pulmonary-Dr. Dietz Cardiology-Dr. Westbrook Procedures: COVID: Positive CT Chest: COMPARISON: Chest For Pe Angio dated 04/28/2021; Chest Single View dated 07/21/2021 TECHNIQUE: Dynamically enhanced 3 mm thick images of the chest were obtained during administration of approximately 150mL Isovue 370 IV contrast. Coronal and oblique MIP reconstruction images were generated and reviewed. Exam utilizes a protocol to evaluate the pulmonary arterial tree. All CT scans are performed using dose optimization technique as appropriate and may include automated exposure control or mA/KV adjustment according to patient size. FINDINGS: No pulmonary emboli are identified. The aorta as imaged shows no acute or suspicious finding. No pericardial thickening or effusion. Cardiomegaly No infiltrate or mass in the lung parenchyma. Minimal left pleural effusion is present similar to comparison. Moderate-sized right pleural effusion is present increased from April 28 imaging. There is partial atelectasis of the right lower lobe. Trace amount of atelectasis in the posterior gutter on the left. No mediastinal or hilar suspicious masses. No chest wall masses or abnormal axillary lymphadenopathy. IMPRESSION: No pulmonary emboli identified. Significant cardiomegaly with moderate-sized right pleural effusion increased from comparison.Lung markings are mildly prominent and CHF/volume overload is suspected CT AB/Pelvis: COMPARISON: Abdomen Pelvis W Contrast dated 03/06/2021; Chest For Pe Angio dated 07/21/2021 TECHNIQUE: Biphasic, helical CT imaging of the abdomen and pelvis was performed following 100 ml non-ionic IV contrast. No oral contrast administered. All CT scans are performed using dose optimization technique as appropriate and may include automated exposure control or mA/KV adjustment according to patient size. FINDINGS: Small left-side and small to moderate right-sided pleural effusions are present similar to the July 21 CT chest study. Cardiomegaly without pericardial thickening or effusion again noted. Atelectasis is present in each lung base. No focal liver lesion identified. No portal vein abnormality. Spleen and pancreas are unremarkable. No biliary tree dilatation. Gallbladder is normal size. Gallstones can be occult. There is significant motion on the upper abdomen imaging limiting ability to evaluate the gallbladder wall. Hyperdensity within the lumen of the gallbladder is believed be vicarious excretion of contrast. Concerns for an acute gallbladder process can be addressed with a follow-up limited gallbladder ultrasound. Symmetric renal function is seen with no hydronephrosis or suspicious renal mass. No pyelonephritis or acute parenchymal process. A 3 centimeter left renal cyst is present anterior mid left kidney. No perinephric stranding. No adrenal abnormalities. Partially filled urinary bladder is hyperdense believed be from contrast on this examination the July 21 study. No bladder stone identified. Prostate gland and seminal vesicles within range of normal. No dilated bowel loops or bowel wall thickening. Acute bowel process is not seen. Metallic density is seen in the proximal stomach and cecum region of the colon. Assessment is limited by the amount of motion. These may be clips from prior endoscopic polypectomy. No acute changes in the bowel adjacent to these metallic foci. Significance is doubtful. No free air, free fluid or inflammatory stranding. No mass or bulky lymphadenopathy. Fat extends into the origin of each inguinal canal similar to comparison. No suspicious bony findings. IMPRESSION: There is no ascites, bowel dilatation or other finding to explain abdominal distention history. As detailed above, no acute abdominal or pelvic finding identifiable. Pleural effusions and atelectasis in each lung base along with cardiomegaly match the July 21 CT study. Follow up CXR: COMPARISON: Chest Single View dated 07/24/2021 FINDINGS: Right-sided pleural effusion appears partially loculated. Free- flowing component of this effusion on the right measures maximally 2 cm in thickness. Small volume left effusion is also present maximally measuring 15 mm in layering component. Medical Problem List: Shortness of breath secondary to bilateral pleural effusions with partially loculated right effusion complicated with to acute on chronic diastolic CHF Atrial fibrillation with RVR Nausea and vomiting Anemia of chronic disease with iron deficiency Hemorrhoids Hyperlipidemia GERD Brief History of Present Illness: 75 yo male with history of atrial fibrillation on chronic anticoagulation therapy, anemia chronic disease, acute on chronic renal disease, hypertension, and hyperlipidemia. Patient had reported increased palpitations and shortness of breath. Patient reports that he had been on metoprolol in the past. This was switched to verapamil. In the ER patient was found to have desaturations. Patient with history of Covid in the past. Patient admitted for further evaluation and treatment. Hospital Course: Patient presented to atrial fibrillation with RVR complicated with acute on chronic diastolic CHF with significant cardiomegaly, bilateral pleural effusions right greater than left with partially loculated pleural effusion. Patient was admitted for treatment. Patient was seen and evaluated by cardiology and pulmonology. For his atrial fibrillation, patient had been on metoprolol. This was discontinued in the past and switched over to verapamil. During the course of his stay verapamil was discontinued. Patient was placed on IV amiodarone with improvement in his rate. This was eventually switched over to oral amiodarone. Patient also received IV Lasix to help with his CHF. No intervention was required for the partially loculated pleural effusion as recommended by pulmonology. Patient has been ambulating well with physical therapy. This also has improved. Patient was evaluated for skilled placement. For his atrial fibrillation, the patient will continue with amiodarone 400 mg 1 pill twice daily and Eliquis 5 mg 1 pill twice daily. Recommend follow-up with cardiology in 1 to 2 weeks to follow-up hospitalization. Further adjustment in his medication can be done by cardiology. For his acute on chronic diastolic CHF, the patient will continue with Lasix 40 mg daily. Recommend to continue 1500 C per day fluid restriction and low-salt diet. If his weight increases by more than 5 pounds or shortness of breath worsens, further adjustment in medication may be required. This can be done with the help of his laundry clerk, pulmonology or PCP. For his partially loculated pleural effusion, this can be monitored closely. Recommend to recheck chest x-ray in 2 to 4 weeks to monitor his progress. Recommend follow-up with pulmonology in 1 to 2 weeks to follow-up his hospitalization and to further address. Patient with anemia of chronic disease. At discharge patient will continue with his iron supplementation 325 mg 1 pill twice daily. Recommend to recheck CBC in 1 to 2 weeks to monitor his progress. Patient with history of hemorrhoids. Patient is scheduled for hemorrhoidectomy in the near future. For now this will have to be postponed. Recommend to follow-up with GI after skilled placement to reschedule. His overall condition will need to significantly improved before surgery. Patient with hyperlipidemia. At discharge patient will continue with Lipitor 20 mg daily. Patient with GERD. At discharge patient will continue with Prilosec 20 mg daily. Patient will continue with his other medications including docusate 100 mg daily, Enlive supplementation 1 can twice a day, trazodone 50 mg at bedtime and Tessalon Perles 100 mg 3 times a day as needed for cough. Vital Signs/Physical Exam: Temp Pulse Resp BP Pulse Ox 97.6 F 89 20 99/77 98 07/28/21 09:12 07/28/21 09:12 07/28/21 09:12 07/28/21 09:12 07/28/21 09:12 General: Alert, In no apparent distress, Oriented x3, Cooperative HEENT: Atraumatic Neck: Supple Respiratory: Clear to auscultation bilaterally Cardiovascular: Irregular heart rate/rhythm (A. fib rate controlled) Musculoskeletal: No erythema, No tenderness, No warmth Integumentary: No tenderness/swelling, No erythema, No warmth, No cyanosis Neurological: Normal speech, Normal strength at 5/5 x4 extr, Normal tone, Normal affect Laboratory Data at Discharge: WBC 9.30 K/uL (4.3-10.9) D 07/26/21 04:43 Hgb 11.7 g/dL (13.6-17.9) L 07/26/21 04:43 Hct 35.4 % (39.6-49.0) L 07/26/21 04:43 Plt Count 220 K/uL (152-406) D 07/26/21 04:43 PT 20.3 SECONDS (9.5-12.5) H 07/21/21 15:40 INR 1.76 07/21/21 15:40 Sodium 141 mmol/L (136-145) 07/28/21 04:52 Potassium 4.1 mmol/L (3.5-5.1) 07/28/21 04:52 BUN 13 mg/dL (7-18) 07/28/21 04:52 Creatinine 1.01 mg/dL (0.55-1.3) 07/28/21 04:52 Glucose 93 mg/dL (74-106) 07/28/21 04:52 Phosphorus 3.1 mg/dL (2.5-4.9) 07/24/21 04:41 Magnesium 2.7 mg/dL (1.8-2.4) H 07/26/21 04:43 Total Bilirubin 0.4 mg/dL (0.2-1.0) 07/22/21 05:00 AST 11 U/L (15-37) L 07/22/21 05:00 ALT 14 U/L (12-78) 07/22/21 05:00 Alkaline Phosphatase 68 U/L (45-117) 07/22/21 05:00 Triglycerides 68 mg/dL (<150) 07/22/21 05:00 Cholesterol 84 mg/dL (<200) 07/22/21 05:00 HDL Cholesterol 36 mg/dL (40-60) L 07/22/21 05:00 Cholesterol/HDL Ratio 2.33 07/22/21 05:00 Home Medications: Apixaban [Eliquis] 5 mg PO BID 06/26/21 Atorvastatin Calcium 20 mg PO DAILY 06/26/21 Docusate [Colace Cap*] 100 mg PO DAILY #30 cap 06/27/21 Ferrous Sulfate 325 mg PO BID #60 06/27/21 Benzonatate 100 mg PO QID 07/09/21 Omeprazole [Prilosec] 20 mg PO DAILY 07/09/21 Trazodone HCl 50 mg PO BEDTIME #15 tablet 07/10/21 Amiodarone HCl [Cordarone*] 400 mg PO BID #60 tab 07/28/21 Ensure Enlive 237 ml PO BID #60 can 07/28/21 Furosemide [Lasix*] 40 mg PO DAILY #30 tab 07/28/21 New Medications: Amiodarone HCl [Cordarone*] 400 mg PO BID #60 tab Ensure Enlive 237 ml PO BID #60 can Furosemide [Lasix*] 40 mg PO DAILY #30 tab Physician Discharge Instructions: Patient presented to atrial fibrillation with RVR complicated with acute on chronic diastolic CHF with significant cardiomegaly, bilateral pleural effusions right greater than left with partially loculated pleural effusion. Patient was admitted for treatment. Patient was seen and evaluated by cardiology and pulmonology. For his atrial fibrillation, patient had been on metoprolol. This was discontinued in the past and switched over to verapamil. During the course of his stay verapamil was discontinued. Patient was placed on IV amiodarone with improvement in his rate. This was eventually switched over to oral amiodarone. Patient also received IV Lasix to help with his CHF. No intervention was required for the partially loculated pleural effusion as recommended by pulmonology. Patient has been ambulating well with physical therapy. This also has improved. Patient was evaluated for skilled placement. For his atrial fibrillation, the patient will continue with amiodarone 400 mg 1 pill twice daily and Eliquis 5 mg 1 pill twice daily. Recommend follow-up with cardiology in 1 to 2 weeks to follow-up hospitalization. Further adjustment in his medication can be done by cardiology. For his acute on chronic diastolic CHF, the patient will continue with Lasix 40 mg daily. Recommend to continue 1500 C per day fluid restriction and low-salt diet. If his weight increases by more than 5 pounds or shortness of breath worsens, further adjustment in medication may be required. This can be done with the help of his laundry clerk, pulmonology or PCP. For his partially loculated pleural effusion, this can be monitored closely. Recommend to recheck chest x-ray in 2 to 4 weeks to monitor his progress. Recommend follow-up with pulmonology in 1 to 2 weeks to follow-up his hospitalization and to further address. Patient with anemia of chronic disease. At discharge patient will continue with his iron supplementation 325 mg 1 pill twice daily. Recommend to recheck CBC in 1 to 2 weeks to monitor his progress. Patient with history of hemorrhoids. Patient is scheduled for hemorrhoidectomy in the near future. For now this will have to be postponed. Recommend to follow-up with GI after skilled placement to reschedule. His overall condition will need to significantly improved before surgery. Patient with hyperlipidemia. At discharge patient will continue with Lipitor 20 mg daily. Patient with GERD. At discharge patient will continue with Prilosec 20 mg daily. Patient will continue with his other medications including docusate 100 mg daily, Enlive supplementation 1 can twice a day, trazodone 50 mg at bedtime and Tessalon Perles 100 mg 3 times a day as needed for cough. Diet: AHA Activity: Fall precautions Followup: Willy Deshpande MD [Primary Care Provider] - Time spent managing pt's care (in minutes): 55
[2021-07-28 11:37] VITALS: BP 121/60
== END 2021-07-28 11:00 | DRG 291 ==
LOC: ER 13:53 → ERHOLD 19:37 → 3RD-ICU 21:13
PROVIDERS: ADMIT Hospitalist; ATTEND Family Medicine
DX: I13.0 Hypertensive heart and chronic kidney disease with heart failure and stage 1 through stage 4 chronic kidney disease, or unspecified chronic kidney disease (principal); I50.33 Acute on chronic diastolic (congestive) heart failure; U07.1 COVID-19; Z16.39 Resistance to other specified antimicrobial drug; E44.1 Mild protein-calorie malnutrition; N18.9 Chronic kidney disease, unspecified; I48.0 Paroxysmal atrial fibrillation; E78.5 Hyperlipidemia, unspecified; F41.9 Anxiety disorder, unspecified; K21.9 Gastro-esophageal reflux disease without esophagitis; D50.9 Iron deficiency anemia, unspecified; K64.9 Unspecified hemorrhoids; D63.8 Anemia in other chronic diseases classified elsewhere; R09.02 Hypoxemia; R63.0 Anorexia; Z68.27 Body mass index [BMI] 27.0-27.9, adult; Z79.01 Long term (current) use of anticoagulants; Z79.899 Other long term (current) drug therapy; Z86.73 Personal history of transient ischemic attack (TIA), and cerebral infarction without residual deficits; Z86.16 Personal history of COVID-19
CPT/HCPCS: 36415; 71045; 71046; 71275; 74177; 80048; 80053; 80061; 82728; 82947; 83540; 83605; 83735; 83880; 84100; 84132; 84439; 84443; 84466; 84484; 85025; 85610; 86140; 93005; 93306; 94760; 96374; 97116; 97161; 99285; J0282; J1940; J2405; J2765; J7060; Q9967; U0003

== ENCOUNTER 2021-08-23 10:18 | Emergency (ER) | payer OTHER ==
--- OUTSIDE RECORDS SUMMARY | 2021-08-23 10:24 | XMS REPORT | Continuity of Care Document ---
:1945 Author Organization [facility] t Address [address] [place] [address] Care Team Providers Name Role Phone Kai Montez MD Primary Care Physician [phone] ELLA Attending Clinician Unavailable Jordan SHEFFIELD Attending [...] Date Expiration Date S ource TOTAL[employer] SNP [id number] 2020 MEDICARE HMO-CIGNA 00:00:00 [facility] [id number] 2020 HMO 00:00:00 Problems Condition Condition Condition Status Onset Resolution Last Treating Co mments Source Name Details Category Date Date Treatment Clinician Date No known No known Disease Unive rs active active ity of problems problems [facility] Allergies, Adverse Reactions, Alerts Allergy Allergy Status Severity Reaction(s) Onset Inactive Treating Comm ents Source Name Type Date Date Clinician Aspirin Propensi Active 2020-08 [facility] ty to 1-04 College adverse 00:00: [...] of Medicine Sex Ass[birth year] [facility] l[facility] 00:00:00 00:00:00 of Medicine Smoking Status Start Date Stop Date Source Never smoked tobacco [facility] of Medicine Former smoker 2019-04-22 00:00:00 2019-04-22 00:00:00 [facility] Medications Ordered Filled Start Stop Current Ordering Indication Dosage Frequency Signature Comments Components Source Medication Medication Date Date Medication? Clinician (SIG) Name Name metoprolol 2020-08- 75mg Take 75 mg Giovanny (LOPRESSOR) 1-30 11-30 by mouth Col lege 50 MG 15:25: 00:00 two times of tablet 29 :00 daily. Medicin e atorvastati 2020-08 Yes 20mg Take 20 mg [facility] n (LIPITOR) 1-30 by mouth. Col [...] 15:02: nightly. of tablet 07 Medicin e ondansetron 2020-08 Yes [id number] 4mg Take 1 [facility] (ZOFRAN-ODT 1-30 Tablet by Col lege ) 4 mg 00:00: mouth of disintegrat 00 every 8 Medic in ing tablet hours as e needed for Nausea. verapamil 2020-08 Yes [id number] 120mg Take 1 [facility] (VERELAN) 1-30 capsule by Addison e[facility] 120 MG CR 00:00: mouth of capsule 00 daily. May Medici n take e additional 1 tablet daily as needed. atorvastati 2020-08 Yes 20mg Take 20 mg [facility] n (LIPITOR) 1-04 by mouth. Col lege [...] times Medicin daily. e benzonatate 2020-08 Yes [facility] (TESSALON) 0-25 College 100 mg 00:00: of capsule 00 Medicin e benzonatate 2020-08- No [facility] (TESSALON) 0-25 11-30 College 100 mg 00:00: 00:00 of capsule 00 :00 Medicin e docusate 2020-08 Yes Giovanny sodium 0-17 College (COLACE) 00:00: of 100 MG 00 Medicin capsule e metoprolol 2020-08 Yes [facility] (LOPRESSOR) 0-17 College 25 MG 00:00: of tablet 00 Medicin e docusate 2020-08 Yes [facility] sodium 0-17 College (COLACE) 00:00: of 100 MG 00 Medicin capsule e metoprolol 2020-08- No [facility] (LOPRESSOR) 0-17 11-30 College 25 MG 00:00: 00:00 of tablet 00 :00 Medicin e promethazin 2020-08 Yes [facility] e 0-11 College (PHENERGAN) 00:00: of 12.5 MG 00 Medicin tablet e promethazin 2020-08 Yes [facility] e 0-11 College (PHENERGAN) 00:00: of 12.5 MG 00 Medicin tablet e Apixaban 5 2020-08- No 5mg Take 5 mg B aylor MG TABS 08-18 by mouth. Colleg e 00:00: 05:59 of 00 :00 Medicin e Apixaban 5 2020-2020- No 5mg Take 5 mg B aylor MG TABS 08-18 by mouth College 00:00: 05:59 two times of 00 :00 daily. Medicin e furosemide 2020-0 2020- No 40mg Take 40 mg [facility] (LASIX) 40 05-11 by mouth. Col lege MG tablet 00:00: 05:59 of 00 :00 Medicin e Aspirin 81 2020-0 2020- No 81mg Take 81 mg [facility] MG tablet 05-11 by mouth. [facility] e[facility] 00:00: 05:59 of 00 :00 Medicin e furosemide 2020-0 2020- No 40mg Take 40 mg [facility] (LASIX) 40 05-11 by mouth. Col lege MG tablet 00:00: 05:59 of 00 :00 Medicin e Aspirin 81 2020-0 2020- No 81mg Take 81 mg Giovanny MG tablet 05-1130 by mouth. [facility]ison ege 00:00: 00:00 of 00 :00 Medicin e atorvastati 2018-0 Yes 20mg Take 20 mg Univers n 20 mg 9-04 by mouth ity of tablet 14:02: at [place] [address] bedtime. Medical Branch clopidogrel 2019-0 Yes 75mg Take 75 mg Univers 75 mg 9-04 by mouth ity of tablet 14:02: daily. [facility] valsartan 2019-0 Yes 320mg Take 320 Uni vers 320 mg 9-04 mg by ity of tablet 14:02: mouth [place] 00 daily. [facility] Branch atorvastati 2019-0 Yes 20mg Take 20 mg Univers n 20 mg 9-04 by mouth ity of tablet 14:02: at [place] 00 bedtime. Medical Branch clopidogrel 2019-0 Yes [...] by mouth ity of tablet 14:02: at [place] 00 bedtime. [facility] clopidogrel 2019-0 Yes 75mg Take 75 mg Univers 75 mg 04 by mouth ity of tablet 14:02: daily. [place] [facility] valsartan 2019-0 Yes 320mg Take [...] Date Status Commen ts Source Name Name [employer] SARS-CoV-2 2021-07-18 Completed [facility] Vaccination 00:00:00 of Medicine Vital Signs Vital Name Observation Time Observation Value Comments Source WEIGHT 2021-05-06 08:52:00 88.2 kg WEIGHT 2021-05-03 09:54:00 92.08 kg HEIGHT 2021-04-28 15:00:00 165.1 cm Systolic blood 2021-07-18 20:56:00 118 mm[Hg] [facility] pressure Medicine Diastolic blood 2021-07-18 20:56:00 70 mm[Hg] [facility] Medicine Heart rate 2021-07-18 20:56:00 102 /min [facility] Respiratory rate 2021-07-18 20:56:00 16 /min [facility] Body height 2021-07-18 20:56:00 167.6 cm [facility] Body weight 2021-07-18 20:56:00 83.008 kg [facility] BMI 2021-07-18 20:56:00 29.54 kg/m2 [facility] Oxygen saturation in 2021-07-18 20:56:00 100 /min [facility] Arterial blood by Medicine Pulse oximetry HEIGHT 2021-07-03 20:00:00 167.6 cm WEIGHT 2021-07-03 20:00:00 81.8 kg HEIGHT 2021-07-03 12:30:00 167.6 cm WEIGHT 2021-07-03 12:30:00 76.204 kg HEIGHT 2021-07-03 20:00:00 167.6 cm WEIGHT 2021-07-03 20:00:00 81.8 kg HEIGHT 2021-07-03 12:30:00 167.6 cm WEIGHT 2021-07-03 12:30:00 76.204 kg Systolic blood 2021-06-22 13:19:00 140 mm[Hg] [facility] pressure Medicine Diastolic blood 2021-06-22 13:19:00 82 mm[Hg] [facility] pressure Medicine Heart rate 2021-06-22 13:19:00 86 /min [facility] Body temperature 2021-06-22 13:19:00 36.83 Lalita [facility] Body height 2021-06-22 13:19:00 167.6 cm [facility] Body weight 2021-06-22 13:19:00 84.732 kg [facility] BMI 2021-06-22 13:19:00 30.15 kg/m2 [facility] WEIGHT 2021-05-23 22:20:00 83.643 kg HEIGHT [...] 13:42:00 140 mm[Hg] Univer sity of pressure [place] [facility] Diastolic blood 2019-04-22 13:42:00 73 mm[Hg] Unive rsity of pressure [facility] Heart rate 2019-04-22 13:42:00 56 /min Universi ty [facility] Respiratory rate 2019-04-22 13:42:00 16 /min Univ ersity of [facility] Branch Oxygen saturation in 2019-04-22 13:42:00 99 /min University of Arterial blood by [place] [employer] allison Pulse oximetry Branch Body temperature 2019-04-22 13:27:00 36.33 Lalita [facility] [place] Body height 2019-04-17 16:00:00 162.6 cm [facility] Body weight 2019-04-17 16:00:00 91.173 kg [facility] Branch BMI 2019-04-17 16:00:00 34.50 kg/m2 [facility] Branch Systolic blood 2019-04-22 13:42:00 140 mm[Hg] Univer sity of pressure [facility] Diastolic blood 2019-04-22 13:42:00 73 mm[Hg] Unive rsity of pressure [facility] Heart rate 2019-04-22 13:42:00 56 /min Universi ty [facility] Respiratory rate 2019-04-22 13:42:00 16 /min Univ ersity of [facility] Oxygen saturation in 2019-04-22 13:42:00 99 /min University of Arterial blood by [facility] Pulse oximetry Branch Body temperature 2019-04-22 13:27:00 36.33 Lalita Univ [facility] Body height 2019-04-17 16:00:00 162.6 cm [facility] Body weight 2019-04-17 16:00:00 91.173 kg [facility] BMI 2019-04-17 16:00:00 34.50 kg/m2 [facility] Procedures Procedure Date / Time Performing Clinician Source Performed ELECTROCARDIOGRAM COMPLETE 2021-07-18 21:05:00 Eedn Ortega [facility] EGD (ENDO) 2019-04-22 12:55:59 Willy Montez [facility] R [facility] DAY SURGERY - ADC 2019-04-22 05:01:00 Doctor Unassigned, [facility] [place] [facility] Plan of Care Planned Activity Planned Date Details Comments Source Future Scheduled 2021-07-20 Pneumococcal 65+ (1 of 2 [facility] Test 15:04:42 - PPSV23) [code = of Medicin e Pneumococcal 65+ (1 of 2 - PPSV23)] Future Scheduled 2021-07-20 TETANUS SHOT (ADULT) [facility] Test 15:04:42 [code = TETANUS SHOT of Medi cine (ADULT)] Future Scheduled 2021-07-20 BMI FOLLOW UP PLAN [code [facility] Test 15:04:42 = BMI FOLLOW UP PLAN] of Med icine Future Scheduled 2021-07-20 Hepatitis C screening [facility] Test 15:04:42 (procedure) [code = of Medic ine 549988976] Future Scheduled 2021-07-20 ZOSTER VACCINE (1 of 2) [facility] Test 15:04:42 [code = ZOSTER VACCINE of Me dicine (1 of 2)] Future Scheduled 2021-07-20 FALL SCREEN [code = FALL [facility] Test 15:04:42 SCREEN] of Medicine Future Scheduled 2021-07-20 MEDICARE IPPE (WELCOME B [facility] Test 15:04:42 TO MEDICARE) [code = of Medi cine MEDICARE IPPE (WELCOME TO MEDICARE)] Future Scheduled 2021-07-20 FLU VACCINE > 6 MONTHS B [facility] Test 15:04:42 [code = FLU VACCINE > 6 of M edicine MONTHS] Future Scheduled 2021-07-18 ELECTROCARDIOGRAM [facility] Test 15:05:03 COMPLETE [code = 11892] of M edicine Future Scheduled 2021-06-22 CBC W/AUTO DIFF WITH Ordered: [facility] Test 09:11:41 PLATELETS [code = 06/22/2021 of Medicin e 29018-4] Future Scheduled 2021-06-22 FERRITIN [code = Ordered: [facility] Test 09:11:41 20366-1] 06/22/2021 of Medicine Future Scheduled 2021-06-22 IRON+TIBC+%SAT [code = Ordered: B [facility] Test 09:11:41 NOCPT] 06/22/2021 of Medicine Future Scheduled 2021-06-22 TETANUS SHOT (ADULT) [facility] Test 08:19:01 [code = TETANUS SHOT of Medi cine (ADULT)] Future Scheduled 2021-06-22 Hepatitis C screening [facility] Test 08:19:01 (procedure) [code = of Medic ine 606584337] Future Scheduled 2021-06-22 ZOSTER VACCINE (1 of 2) [facility] Test 08:19:01 [code = ZOSTER VACCINE of Me dicine (1 of 2)] Future Scheduled 2021-06-22 FALL SCREEN [code = FALL [facility] Test 08:19:01 SCREEN] of Medicine Future Scheduled 2021-06-22 PNEUMOVAX >=65 (PPSV23) [facility] Test 08:19:01 [code = PNEUMOVAX >=65 of Me dicine (PPSV23)] Future Scheduled 2021-06-22 MEDICARE IPPE (WELCOME B [facility] Test 08:19:01 TO MEDICARE) [code = of Medi cine MEDICARE IPPE (WELCOME TO MEDICARE)] Future Scheduled 2021-06-22 FLU VACCINE > 6 MONTHS B [facility] College Test 08:19:01 [code = FLU VACCINE > 6 of M edicine MONTHS] Encounters Start End Encounter Admission Attending Care Care Encounter Source Date/Time Date/Time Type Type Clinicians Facility Department ID 2021-05-28 Inpatient ER FRACISCO JARAMILLO Gastro [id number] [facility] 12:00:47 RYLAN 2021-07-18 2021-07-18 Outpatient BCM [facility] [id number] [facility] 15:48:01 16:26:04 Colleg e of Medicin e 2021-07-18 2021-07-18 Office Alam, BCM [id number] [facility] 14:40:00 16:15:56 Visit Mahboob AMBULATOR 350.1.13.21 College Y 0.2.7.2.686 of [id number] Medi eddie 375 e 2021-07-03 2021-07-04 Outpatient ER DARLENE SPARKS [facility] Emergency 20 [id number] [facility] 12:24:00 14:27:00 2021-07-03 2021-07-03 Outpatient BCM [facility] [id number] [facility] 00:00:00 23:59:00 Colleg e of Medicin e 2021-06-22 2021-06-22 Office GREG SANCHEZ [id number] [facility] 08:13:37 11:39:39 Visit RICK AMBULATOR 350.1.13.21 College Y 0.2.7.2.686 of [id number] Medi eddie 325 e 2021-05-23 2021-05-26 Inpatient ER LUCASERIL, [facility] Emergency 20 [id number] [facility] 15:12:00 15:03:00 MALKA 2021-05-23 2021-05-23 Outpatient BCM [facility] [id number] [facility] 00:00:00 23:59:00 Colleg e of Medicin e 2021-05-20 2021-05-20 Emergency ER [facility] Emergency [id number] [facility] 01:57:00 01:57:00 2021-05-15 2021-05-15 Outpatient BCM [facility] [id number] [facility] 00:00:00 23:59:00 Colleg e of Medicin e 2021-05-15 2021-05-15 Emergency ER [facility] Emergency [id number] [facility] 12:00:00 12:00:00 2021-04-29 2021-04-29 Outpatient BCM [facility] [id number] [facility] 00:00:00 23:59:00 Colleg e of Medicin e 2021-04-28 2021-04-28 Outpatient BCM [facility] [id number] [facility] 12:32:00 23:59:00 Colleg e of Medicin e 2019-04-22 2019-04-22 [facility] [id number] [facility] 06:15:00 08:56:00 Encounter Katy mena 350.1.13.10 ity [place] [id number] [facility] 071 [place] 2019-04-22 2019-04-22 [facility] 1.2.840.114 [id number] 06:15:00 08:56:00 Encounter e[place] 350.1.13.10 [place] 4.2.7.2.686 Surgical [id number] [place] [address] 2019-04-22 2019-04-22 Anesthesia [facility] 1.2.840.114 [id number] [facility] 07:54:00 08:13:00 Jaden Loyola 350.1.13.10 i ty [place] [id number] [facility] 020 [place] 2019-04-22 2019-04-22 Anesthesia [facility] 1.2.840.114 [id number] 07:54:00 08:13:00 Jaden Loyola 350.1.13.10 [place] 4.2.7.2.686 Surgical [id number] [place] [address] 2019-04-22 2019-04-22 Orders Doctor MURILLO 1.2.840.114 [id number] Univers 00:00:00 00:00:00 Only Unassigned, ANA MARIA 350.1.13.10 ity of [place] [facility] 4.2.7.2.686 [place]omas as [id number] [address] 2019-04-22 2019-04-22 Orders Doctor LIDIA 1.2.840.114 [id number] 00:00:00 00:00:00 Only Unassigned, ANA MARIA 350.1.13.10 [facility] 4.2.7.2.686 [id number] Results Test Description Test Time Test Comments Results Result Sour e Comments FL, ESOPHAGUS 2021-07-04 [facility] 11:34:00 studyReason for exam:->POST-OP CHI PROBLEMpost [facility] endocscopy 1 CENTERName: [...] [place] Verified Date/Time: 07/04/2021 11:34:49 Reading Location: [address] Ortho Consult Reading Room C METABOLIC [...] GFR IS NOT APPLICABLE FOR DIALYSIS PATIENTS. Parts Sales Advisor ID - MARZENA MSARS-COV2/RT-PCR ([facility])2021-07-03 17:50:45 Test Item Value Reference Range Interpretation Comments SARS-COV2/RT-PCR Negative Negative The SARS-Co V-2 target (test code = nucleic acids a re not [id number]) detected in thi s specimen. Negative result [...] revoked sooner. Fact Sheet for Healthcare Providers: https://www.InsideTrack/Documents/Xpert%20Xpress%20SARS%20CoV-2/Fact%20Sheets/562-2812%20SARS-COV -2%20HEALTHCARE%20PROVIDERS%20FACT%20SHEET.pdf Fact Sheet for Healthcare Patients: https://www.Lasso/Documents/Xpert %20Xpress%20SARS%20CoV-2/Fact%20Sheets/522-3801%24DFLE-DSW-0%20PATIENT%20FACT%20 SHEET.kfoA-[id number] 17:04:25 Test Item Value Reference Range Interpretation [...] of thrombosis is within 95-100% range.BLOOD GAS, [id number] 16:22:57 Test Item Value Reference Range Interpretation [...] code = 1819) 21.0 RAD, CHEST, 2 [id number] 14:40:00Reason for exam:->CHEST PAIN since endoscopy a month [facility] endocscopy 1 month ago [facility]AN SILVERSanto BACH : 1945 Sex: MFINAL REPORT EXAM: Chest one view COMPARISON: May 15, 2021 CLINICAL HISTORY: Chest pain FINDINGS: Minimal blunting of bilateral posterior costophrenic sulci are noted which may represent small effusions. The cardiac size remains enlarged. There is no evidence of pulmonary consolidation or pneumothorax. The regional osseous structures are unremarkable. Signed:Mati Ackerman MDReport Verified Date/Time: 07/03/2021 14:40:03 [id number] 14:12:25 Test Item Value Reference Range Interpretation Comments LIPASE (BEAKER) (test code = 749) 22 U/L 8-78 Parts Sales Advisor ID - DBCOMPREHENSIVE METABOLIC [id number] 14:12:24 Test Item Value Reference Range Interpretation [...] S NOT APPLICABLE FOR DIALYSIS PATIEN TS. Parts Sales Advisor ID - DBHIGH SENSITIVITY TROPONIN [id number] 14:10:43 Test Item Value Reference Range Interpretation Comments HIGH SENSITIVITY 7 pg/ml See_Comment [Automated message] TROPONIN I (test code = The system which 4010971) generated this result transmitted ref erence range: <=35. Th e reference range was not used to interpr et this result as normal/abnormal . Parts Sales Advisor ID - RMThe MANAGEMENT TECHNICIAN STAT High Sensitivity Troponin-I results should be used in conjunctionwith other diagnostic information such as ECG, clinical observations and information, and patient symptoms to aid in the diagnosis of [place].B-TYPE NATRIURETIC FACTOR (BNP)2021-07-03 14:09:26 Test Item Value Reference Range Interpretation Comments B-TYPE NATRIURETIC PEPTIDE (BEAKER) 515 pg/mL 0-100 H (test code = 700) Parts Sales Advisor ID - RMCBC W/PLT COUNT & AUTO [id number] 13:39:07 Test Item Value Reference Range Interpretation [...] (BEAKER) (test code = 2801) HEMOGLOBIN AND [id number] 05:07:16 Test Item Value Reference Range Interpretation Comments HEMOGLOBIN (BEAKER) (test code = 7.9 GM/DL 13.7-17.5 L 410) HEMATOCRIT (BEAKER) (test code = 26.4 % 40.1-51.0 L 411) Parts Sales Advisor ID - [id number] AND [id number] 18:44:57 Test Item Value Reference Range Interpretation Comments HEMOGLOBIN (BEAKER) (test code = 8.7 GM/DL 13.7-17.5 L 410) HEMATOCRIT (BEAKER) (test code = 29.7 % 40.1-51.0 L 411) Parts Sales Advisor ID - [id number] AND [id number] 11:29:37 Test Item Value Reference Range Interpretation Comments HEMOGLOBIN (BEAKER) (test code = 8.3 GM/DL 13.7-17.5 L 410) HEMATOCRIT (BEAKER) (test code = 28.5 % 40.1-51.0 L 411) Parts Sales Advisor ID - [id number] AND [id number] 04:51:37 Test Item Value Reference Range Interpretation Comments HEMOGLOBIN (BEAKER) (test code = 7.9 GM/DL 13.7-17.5 L 410) HEMATOCRIT (BEAKER) (test code = 26.9 % 40.1-51.0 L 411) Parts Sales Advisor ID - [id number] AND [id number] 16:42:26 Test Item Value Reference Range Interpretation Comments HEMOGLOBIN (BEAKER) (test code = 8.6 GM/DL 13.7-17.5 L 410) HEMATOCRIT (BEAKER) (test code = 29.4 % 40.1-51.0 L 411) Parts Sales Advisor ID - 6000BASIC METABOLIC [id number] 09:04:40 Test Item Value Reference Range Interpretation [...] S NOT APPLICABLE FOR DIALYSIS PATIEN TS. Parts Sales Advisor ID - ROSIANGHEMOGLOBIN AND [id number] 08:41:52 Test Item Value Reference Range Interpretation Comments HEMOGLOBIN (BEAKER) (test code = 7.6 GM/DL 13.7-17.5 L 410) HEMATOCRIT (BEAKER) (test code = 26.5 % 40.1-51.0 L 411) Parts Sales Advisor ID - [id number]-COV2/RT-PCR ([facility])2021-05-23 19:59:55 Test Item Value Reference Range Interpretation Comments SARS-COV2/RT-PCR Negative Negative The SARS-Co V-2 target (test code = nucleic acids a re not 4863966) detected in thi s specimen. Negative result [...] individuals suspected of CO VID-19 by their [facility] e provider. This test has been [...] revoked sooner. Fact Sheet for Healthcare Providers: https://www.InsideTrack/Documents/Xpert%20Xpress%20SARS%20CoV-2/Fact%20Sheets/302-6382%20SARS-COV -2%20HEALTHCARE%20PROVIDERS%20FACT%20SHEET.pdf Fact Sheet for Healthcare Patients: https://www.Lasso/Documents/Xpert %20Xpress%20SARS%20CoV-2/Fact%20Sheets/3023801%60VOHA-JBL-8%20PATIENT%20FACT%20 SHEET.pdfCOMPREHENSIVE METABOLIC [id number] 17:17:21 Test Item Value Reference Range Interpretation [...] S NOT APPLICABLE FOR DIALYSIS PATIEN TS. Parts Sales Advisor ID Patrick LUDA [id number] 17:17:21 Test Item Value Reference Range Interpretation Comments LIPASE (BEAKER) (test code = 749) 31 U/L 8-78 Parts Sales Advisor ID Patrick LARES [id number] 16:55:15 Test Item Value Reference Range Interpretation [...] (BEAKER) (test code = 2801) BASIC METABOLIC [id number] 04:38:30 Test Item Value Reference Range Interpretation [...] S NOT APPLICABLE FOR DIALYSIS PATIEN TS. Parts Sales Advisor ID - DBCBC W/PLT COUNT & AUTO [id number] 04:21:40 Test Item Value Reference Range Interpretation [...] (BEAKER) (test code = 2801) BASIC METABOLIC [id number] 07:03:04 Test Item Value Reference Range Interpretation [...] S NOT APPLICABLE FOR DIALYSIS PATIEN TS. Parts Sales Advisor ID - PIAYA LCBC (HEMOGRAM ONLY)2021-05-17 04:38:47 [...] (BEAKER) (test code = 413) HEMOGLOBIN AND [id number] 20:18:40 Test Item Value Reference Range Interpretation Comments HEMOGLOBIN (BEAKER) (test code = 7.7 GM/DL 13.7-17.5 L 410) HEMATOCRIT (BEAKER) (test code = 25.7 % 40.1-51.0 L 411) Parts Sales Advisor ID - 6000BASIC METABOLIC [id number] 06:32:43 Test Item Value Reference Range Interpretation [...] S NOT APPLICABLE FOR DIALYSIS PATIEN TS. Parts Sales Advisor ID - MARZENA MCBC W/PLT COUNT & AUTO [id number] 06:09:12 Test Item Value Reference Range Interpretation [...] (BEAKER) (test code = 2801) HEMOGLOBIN AND [id number] 00:13:44 Test Item Value Reference Range Interpretation Comments HEMOGLOBIN (BEAKER) (test code = 8.0 GM/DL 13.7-17.5 L 410) HEMATOCRIT (BEAKER) (test code = 28.1 % 40.1-51.0 L 411) Parts Sales Advisor ID - 6000SARS-COV2/RT-PCR ([facility])2021-05-15 18:07:21 Test Item Value Reference Range Interpretation Comments SARS-COV2/RT-PCR Negative Negative The SARS-Co V-2 target (test code = nucleic acids a re not 9754597) detected in thi s specimen. Negative result [...] revoked sooner. Fact Sheet for Healthcare Providers: https://www.InsideTrack/Documents/Xpert%20Xpress%20SARS%20CoV-2/Fact%20Sheets/3023802%20SARS-COV -2%20HEALTHCARE%20PROVIDERS%20FACT%20SHEET.pdf Fact Sheet for Healthcare Patients: https://www.Lasso/Documents/Xpert %20Xpress%20SARS%20CoV-2/Fact%20Sheets/3023801%28KPBM-CDP-9%20PATIENT%20FACT%20 SHEET.pdfHIGH SENSITIVITY TROPONIN [id number] 15:44:19 Test Item Value Reference Range Interpretation Comments HIGH SENSITIVITY 6 pg/ml See_Comment [Automated message] TROPONIN I (test code = The system which [id number]) generated this result transmitted ref erence range: <=35. Th e reference range was not used to interpr et this result as normal/abnormal . Parts Sales Advisor ID - DBThe MANAGEMENT TECHNICIAN STAT High Sensitivity Troponin-I results should be used in conjunctionwith other diagnostic information such as ECG, clinical observations and information, and patient symptoms to aid in the diagnosis of [place].[id number] 15:36:53 Test Item Value Reference Range Interpretation Comments MAGNESIUM (BEAKER) (test code = 2.1 mg/dL 1.6-2.6 627) Parts Sales Advisor ID - [id number] 15:36:53 Test Item Value Reference Range Interpretation Comments PHOSPHORUS (BEAKER) (test code = 3.3 mg/dL 2.3-4.7 604) Parts Sales Advisor ID - DBCOMPREHENSIVE METABOLIC [id number] 15:36:52 Test Item Value Reference Range Interpretation [...] S NOT APPLICABLE FOR DIALYSIS PATIEN TS. Parts Sales Advisor ID - DBCBC W/PLT COUNT & AUTO [id number] 15:12:30 Test Item Value Reference Range Interpretation [...] = 2801) RAD, CHEST, 1 VIEW, NON [id number] 13:55:00Reason for exam:->MELENAReason for exam:->GENERAL ILLNESSReason for exam:->GENERALIZED WEAKNESS, NOT ASSOCIATED WITH EXTREMITIESShould this be performed at the bedside?->Yes [facility] 1945 Sex: MFINAL REPORT INDICATION: MELENAGENERAL ILLNESSGENERALIZED WEAKNESS, NOT ASSOCIATED WITH EXTREMITIES COMPARISON: 05/01/2021 TECHNIQUE: Single frontal view of the chest. FINDINGS: Lungs and pleura: Clear lungs. No effusion.Heart and mediastinum: Normal heart size. Unremarkable mediastinal contours.Osseous structures: No acute abnormality.Other: None. IMPRESSION: No acute intrathoracic abnormality. Signed: Gaby Scott Verified Date/Time: 05/15/2021 13:55:04 Reading Location: [facility] Radiology Reading Room [id number] 07:19:33 Test Item Value Reference Range Interpretation Comments MAGNESIUM (BEAKER) (test code = 2.4 mg/dL 1.6-2.6 627) Parts Sales Advisor ID - PIAYA LBASIC METABOLIC [id number] 07:19:32 Test Item Value Reference Range Interpretation [...] S NOT APPLICABLE FOR DIALYSIS PATIEN TS. Parts Sales Advisor ID - PIAYA LCBC W/PLT COUNT & AUTO [id number] 06:34:22 Test Item Value Reference Range Interpretation [...] (test code = 2801) UREA NITROGEN, RANDOM [id number] 17:46:02 Test Item Value Reference Range Interpretation Comments UREA NITROGEN URINE (BEAKER) (test 404 mg/dL code = 538) Reference Range: No NormalsOperator ID - BSSODIUM, RANDOM [id number] 17:46:01 Test Item Value Reference Range Interpretation Comments SODIUM URINE (BEAKER) (test code = 101 meq/L 243) Reference Range: No NormalsOperator ID - BSCREATININE, RANDOM [id number] 17:46:00 Test Item Value Reference Range Interpretation Comments CREATININE URINE (BEAKER) (test 61.7 mg/dL code = 375) Reference Range: No NormalsOperator ID - BSURINALYSIS WITH MICROSCOPIC IF [id number] 16:41:11 Test Item Value Reference Range Interpretation [...] = 463) SOURCE(BEAKER) (test code = 2795) Parts Sales Advisor ID - [auto]BLOOD [id number] 11:01:01 Test Item Value Reference Range Interpretation Comments CULTURE (BEAKER) (test No growth in 5 days code = 1095) BLOOD [id number] 11:01:01 Test Item Value Reference Range Interpretation Comments CULTURE (BEAKER) (test No growth in 5 days code = 1095) The specimen volume collected for this blood culture was below the optimum (10 mL per bottle or 20 mL total). Use of lower volumes may adversely affect recovery and/or detection times of some organisms.[id number] 05:38:27 Test Item Value Reference Range Interpretation Comments MAGNESIUM (BEAKER) (test code = 2.3 mg/dL 1.6-2.6 627) Parts Sales Advisor ID - PIAYA LBASIC METABOLIC [id number] 05:38:26 Test Item Value Reference Range Interpretation [...] S NOT APPLICABLE FOR DIALYSIS PATIEN TS. Parts Sales Advisor ID - PIAYA LPROTHROMBIN [id number] 05:23:25 Test Item Value Reference Range Interpretation Comments PROTIME (BEAKER) 16.9 seconds 11.9-14.2 H (test code = 759) INR (BEAKER) (test 1.39 See_Comment [Automat ed message] code = 370) The system Wowsai generated this result transmitted ref erence range: [...] (BEAKER) (test code = 2801) COMPREHENSIVE METABOLIC [id number] 16:17:38 Test Item Value Reference Range Interpretation [...] S NOT APPLICABLE FOR DIALYSIS PATIEN TS. Parts Sales Advisor ID - DBSARS-COV2/RT-PCR ([facility])2021-05-08 12:32:16 Test Item Value Reference Range Interpretation Comments SARS-COV2/RT-PCR (test Negative Not Detected, Negative, code = 6647059) See external report for linked test SARS-COV-2 PERFORMING [facility] (test code = 3145316) Negative result for this test determines that [...] 564(g) of the Act.Fact Sheet for Healthcare Providers:https://www.Unbounce/sites/default/files/product/documents/Fact_Sherajesh navaa_ON_Zkytfmrxo_Kvfz_GRSD-PnD-2.pdfFact Sheet for Healthcare Patients:https://www.Unbounce/sites/default/files/product/ documents/Gbrh_Swali_Pisbbzbi_Drnv_BCBG-UdV-2.pdfPerforming Laboratory:[facility] [facility] [address].[place], [place] [address]KHH (HEMOGRAM ONLY) 2021-05-08 06:41:47 Test Item Value [...] code = 413) MYOCARD IMAGING, MULTI, PHARM, [id number] 13:41:00Unlisted Reason for Exam - Click Yes and Enter Reason Below->No [facility] : 1945 Sex: MFINAL REPORT PROCEDURE: Rest/Stress MYOCARDIAL PERFUSION SPECT with regadenoson\\XA9\\ CPT CODE: 17397 INDICATION: Chest pain PROTOCOL: 10.6 mCi of [...] (BEAKER) (test code = 413) BASIC METABOLIC [id number] 06:10:10 Test Item Value Reference Range Interpretation [...] S NOT APPLICABLE FOR DIALYSIS PATIEN TS. Parts Sales Advisor ID - SHANE GCBC (HEMOGRAM ONLY)2021-05-06 05:35:30 [...] 0-0 H (BEAKER) (test code = 413) [id number] 17:04:33 Test Item Value Reference Range Interpretation Comments PARTIAL THROMBOPLASTIN TIME 75.5 seconds 22.5-36.0 H (BEAKER) (test code = 760) [id number] 08:48:29 Test Item Value Reference Range Interpretation Comments PARTIAL THROMBOPLASTIN TIME 39.1 seconds 22.5-36.0 H (BEAKER) (test code = 760) [id number] 07:02:01 Test Item Value Reference Range Interpretation [...] (BEAKER) (test code = 413) BASIC METABOLIC [id number] 06:36:45 Test Item Value Reference Range Interpretation [...] S NOT APPLICABLE FOR DIALYSIS PATIEN TS. Parts Sales Advisor ID - SHANE [id number] 22:11:03 Test Item Value Reference Range Interpretation Comments PARTIAL THROMBOPLASTIN TIME 88.2 seconds 22.5-36.0 H (BEAKER) (test code = 760) PERIPHERAL BLOOD SMEAR - PATHOLOGIST [id number] 18:22:51 Test Item Value Reference Range Interpretation Comments PERIPHERAL SMR Microcytic hypochromic REVIEW (BEAKER) anemia with marked (test code = 2640) anisopoikilocytosis and polychromasia, consistent with history of LEESA. Leukocytosis with predominantly mature granulocytes. No blasts seen. Adequate platelets with unremarkable morphology. ICTC-[id number]-5 Andreina Schmidt, 112 (BEAKER) (test M.D code [...] (BEAKER) (test code 2+ moderate = 966) [id number] 12:13:05 Test Item Value Reference Range Interpretation Comments PARTIAL THROMBOPLASTIN TIME 55.6 seconds 22.5-36.0 H (BEAKER) (test code = 760) TISSUE [id number] 11:53:42Surgical Pathology Report Case: [id number] Authorizing Provider: Yolanda Lyle MD Collected: 05/03/2021 10:38 AM Ordering Location: [address] Received: 05/03/2021 02:25 PM Service Pathologist: Ciro Diamond MD Specimen: Polyp, Colon - Right/Ascending, x3 PART A RIGHT ASCENDING COLON POLYPX3, POLYPECTOMY:TUBULAR ADENOMA Signing Pathologist Direct Phone Line: [phone] signed by Ciro Diamond MD on 05/04/2021 at 11:53 [id number] colonReceived in formalin labeled the patient's name, accession number and "ascending colon polyp" are multiple chavez soft tissue fragments measuring up to 0.5 cm in greatest dimension which are filtered and submitted in toto in A1.URSULA Martell, HT (ASCP)performedCalifornia Hospital Medical Center, Department of Pathology, [address] [place] [address], [facility]qxz[facility], Department of Pathology, [address] [place] [address], KhtwppK[facility], Department of Pathology, [address] [place] [address], [id number] 11:13:03 Test Item Value Reference Range Interpretation Comments PARTIAL THROMBOPLASTIN TIME > seconds 22.5-36.0 HH (BEAKER) (test code = 760) URINALYSIS [id number] 10:30:34 Test Item Value Reference Range Interpretation Comments RBC UA (BEAKER) (test code = 519) 3 /HPF WBC UA (BEAKER) (test code = 520) 2 /HPF BACTERIA (BEAKER) (test code = None Seen 517) MUCUS (BEAKER) (test code = 1574) Moderate CRYSTALS, URINE (BEAKER) (test None Seen code = 1521) AMORPHOUS CRYSTALS (BEAKER) (test Occasional code = 1584) Parts Sales Advisor ID - techURINALYSIS WITH MICROSCOPIC IF [id number] 10:23:22 Test Item Value Reference Range Interpretation [...] = 463) SOURCE(BEAKER) (test code = 2795) Parts Sales Advisor ID - [auto]BASIC METABOLIC [id number] 06:55:55 Test Item Value Reference Range Interpretation [...] S NOT APPLICABLE FOR DIALYSIS PATIEN TS. Parts Sales Advisor ID - SHANE GCBC (HEMOGRAM ONLY)2021-05-04 06:35:01 [...] 0-0 (BEAKER) (test code = 413) BLOOD [id number] 18:01:00 Test Item Value Reference Range Interpretation Comments CULTURE (BEAKER) (test No growth in 5 days code = 1095) BLOOD [id number] 18:00:59 Test Item Value Reference Range Interpretation Comments CULTURE (BEAKER) (test No growth in 5 days code = 1095) TISSUE [id number] 17:23:09Surgical Pathology Report Case: [id number] Authorizing Provider: Yolanda Lyle MD Collected: 05/02/2021 03:08 PM Ordering Location: [address] Received: 05/03/2021 09:22 AM Service Pathologist: [...] ORINVASIVE CARCINOMA. Signing Pathologist Direct Phone Line: [phone] signed by Ciro Diamond MD on 05/03/2021 at 5:23 [id number], [id number] iron deficiency anemiaA. Duodenum tissue, rule out [...] evaluated Immunohistochemistry technical testing was performed at [facility], Pathology Laboratory where it was [...] qualified to perform high complexity clinical laboratory testing.[facility], Department of Pathology, [address] [place], [place] [id number], NbrijiK[facility], Department of Pathology, [address] [place] [address], ZtqezmKaiser Foundation [facility], Department of Pathology, [address] [place] [address], KFSPX METABOLIC PANEL 2021-05-03 06:21:43 Test Item Value [...] S NOT APPLICABLE FOR DIALYSIS PATIEN TS. Parts Sales Advisor ID - MARZENA MTSH/FREE T4 IF [id number] 05:55:30 Test Item Value Reference Range Interpretation Comments THYROID STIMULATING HORMONE 0.869 uIU/mL 0.350-4.940 (BEAKER) (test code = 772) Parts Sales Advisor ID - MARZENA MB-TYPE NATRIURETIC FACTOR (BNP)2021-05-03 05:32:14 Test Item Value Reference Range Interpretation Comments B-TYPE NATRIURETIC PEPTIDE (BEAKER) 452 pg/mL 0-100 H (test code = 700) Parts Sales Advisor ID - MARZENA MCBC (HEMOGRAM ONLY)2021-05-03 05:22:14 [...] CONCENTRATION Adequate (CELLAVISION)(BEAKER) (test code = 3438) Parts Sales Advisor ID - Segovia Orlando comments: Slide comments:CBC W/PLT COUNT & AUTO [id number] 11:59:17 Test Item Value Reference Range Interpretation [...] (BEAKER) (test code = 413) BASIC METABOLIC [id number] 09:20:42 Test Item Value Reference Range Interpretation [...] S NOT APPLICABLE FOR DIALYSIS PATIEN TS. Parts Sales Advisor ID - KEARA WPT/[id number] 09:05:40 Test Item Value Reference Range Interpretation [...] 2.5-3.5 for patients with mechanical heart valves.SARS-COV2/RT-PCR ([facility]) 2021-05-01 12:34:25 Test Item Value Reference Range Interpretation Comments SARS-COV2/RT-PCR (test Negative Not Detected, Negative, code = 3124720) See external report for linked test SARS-COV-2 [facility]FORMING [facility] (test code = 7167141) Negative result for this test determines that [...] 564(g) of the Act.Fact Sheet for Healthcare Providers:https://www.Unbounce/sites/default/files/product/documents/Fact_Shee t_RQ_Zfqyjamyg_Ygpl_VJLN-WeB-9.pdfFact Sheet for Healthcare Patients:https://www.Unbounce/sites/default/files/product/ documents/Wafj_Obhel_Hfvputru_Hcaf_XBZY-OgU-5.pdfPerforming Laboratory:[facility], [place] [address]IGK, CHEST, 1 VIEW, NON [id number] 09:29:00Reason for exam:->shortness of breathShould this be performed at the bedside?->Yes [facility] : 1945 Sex: MFINAL REPORT Chest AP portable History provided: Shortness of breath Heart size magnified by projection. Lungs are clear and vascularity normal. Signed: Lobo Jeffers Verified Date/Time: 05/01/2021 09:29:27 Reading Location: [facility] Radiology Reading Room CBC (HEMOGRAM ONLY)2021-05-01 [...] (BEAKER) (test code = 413) BASIC METABOLIC [id number] 06:24:43 Test Item Value Reference Range Interpretation [...] S NOT APPLICABLE FOR DIALYSIS PATIEN TS. Parts Sales Advisor ID - PIAYA LBASIC METABOLIC [id number] 15:17:17 Test Item Value Reference Range Interpretation [...] S NOT APPLICABLE FOR DIALYSIS PATIEN TS. Parts Sales Advisor ID - DBCBC W/PLT COUNT & AUTO [id number] 14:42:15 Test Item Value Reference Range Interpretation [...] (BEAKER) (test code = 2801) HEMOGLOBIN AND [id number] 14:41:31 Test Item Value Reference Range Interpretation Comments HEMOGLOBIN (BEAKER) (test code = 9.7 GM/DL 13.7-17.5 L 410) HEMATOCRIT (BEAKER) (test code = 33.4 % 40.1-51.0 L 411) Parts Sales Advisor ID - [id number], [id number] 02:24:00Unlisted Reason for Exam - Click Yes and Enter Reason Below->NoWill this procedure require oral co ntrast?->No[facility] : 1945 Sex: [...] nonobstructing left renal stone. Signed: Aman Diane [facility] Verified Date/Time:04/30/2021 02:24:34 HEMOGLOBIN [id number] 09:35:28 Test Item Value Reference Range Interpretation Comments HEMOGLOBIN A1C (BEAKER) (test code = 6.6 % 4.3-6.1 H 368) HEPATIC FUNCTION [id number] 05:59:52 Test Item Value Reference Range Interpretation [...] (test code = 38 U/L 6-55 347) Parts Sales Advisor ID - MARZENA [id number] 05:59:50 Test Item Value Reference Range Interpretation Comments MAGNESIUM (BEAKER) (test code = 2.9 mg/dL 1.6-2.6 H 627) Parts Sales Advisor ID - MARZENA MLIPID [id number] 05:59:50 Test Item Value Reference Range Interpretation [...] Borderline 130-159 High 160-189 Very High >=190 Parts Sales Advisor ID - MARZENA MBASIC METABOLIC [id number] 05:59:49 Test Item Value Reference Range Interpretation [...] S NOT APPLICABLE FOR DIALYSIS PATIEN TS. Parts Sales Advisor ID - MARZENA MB-TYPE NATRIURETIC FACTOR (BNP)2021-04-29 05:49:20 Test Item Value Reference Range Interpretation Comments B-TYPE NATRIURETIC PEPTIDE (BEAKER) 329 pg/mL 0-100 H (test code = 700) Parts Sales Advisor ID - DBPROTHROMBIN TIME/[id number] 05:43:23 Test Item Value Reference Range Interpretation Comments PROTIME (BEAKER) 15.3 seconds 11.9-14.2 H (test code = 759) INR (BEAKER) (test 1.23 See_Comment [Automat ed message] code = 370) The system Wowsai generated this result transmitted ref erence range: [...] (BEAKER) (test code = 2801) BASIC METABOLIC [id number] 20:29:00 Test Item Value Reference Range Interpretation [...] S NOT APPLICABLE FOR DIALYSIS PATIEN TS. Parts Sales Advisor ID - [id number] 16:56:00 Test Item Value Reference Range Interpretation Comments FERRITIN (BEAKER) (test code = 13.77 ng/mL 5.00-275.00 361) Parts Sales Advisor ID - DBHIGH SENSITIVITY TROPONIN [id number] 16:42:00 Test Item Value Reference Range Interpretation Comments HIGH SENSITIVITY 13 pg/ml See_Comment [Automated message] TROPONIN I (test code = The system which [id number]) generated this result transmitted ref erence range: <=35. Th e reference range was not used to int erpret this result as normal/abnormal . Parts Sales Advisor ID - DBThe MANAGEMENT TECHNICIAN STAT High Sensitivity Troponin-I results should be used in conjunctionwith other diagnostic information such as ECG, clinical observations and information, and patient symptoms to aid in the diagnosis of [place].HIGH SENSITIVITY TROPONIN [id number] 16:41:00 Test Item Value Reference Range Interpretation Comments HIGH SENSITIVITY 15 pg/ml See_Comment [Automated message] TROPONIN I (test code = The system which [id number]) generated this result transmitted ref erence range: <=35. Th e reference range was not used to int erpret this result as normal/abnormal . Parts Sales Advisor ID - DBThe MANAGEMENT TECHNICIAN STAT High Sensitivity Troponin-I results should be used in conjunctionwith other diagnostic information such as ECG, clinical observations and information, and patient symptoms to aid in the diagnosis of [place].IRON, TIBC, % SAT. (WITHOUT FERRITIN)2021-04-28 16:35:00 Test Item Value Reference Range Interpretation Comments IRON (BEAKER) (test code = 547) 22.0 ug/dL 40.0-160.0 L TOTAL IRON BINDING CAPACITY 473 ug/dL 250-450 H (BEAKER) (test code = 769) IRON % SATURATION (2) (BEAKER) 5 % 20-55 L (test code = 2590) Parts Sales Advisor ID - DBHEMOGLOBIN AND [id number] 15:56:00 Test Item Value Reference Range Interpretation Comments HEMOGLOBIN (BEAKER) (test code = 9.2 GM/DL 13.7-17.5 L 410) HEMATOCRIT (BEAKER) (test code = 30.6 % 40.1-51.0 L 411) Parts Sales Advisor ID - [id number]
[2021-08-23 11:19] LABS: Absolute Lymphocytes (CBC) 1.2 K/uL (0.7-4.9); Hematocrit 32.9 % (39.6-49.0); Lymphocytes % 20.3 % (15.3-44.8); RBC Red Blood Cell Count 4.12 M/uL (4.33-5.43)
[2021-08-23 11:20] LABS: Protime INR 2.12
[2021-08-23] MEDS ORDERED: ONDANSETRON 4 MG/2 ML VIAL ONE (11:26)
--- NOTE | 2021-08-23 11:33 | RAD REPORT ---
EXAM DESCRIPTION: RAD - Chest Single View - 08/23/2021 11:03 am CLINICAL HISTORY: Nausea, Cough COMPARISON: Chest Single View dated 07/25/2021; Chest Single View dated 07/24/2021; Chest Single View dated 07/21/2021; Chest Single View dated 07/12/2021 FINDINGS: Lines: None. Lungs: Mild interstitial edema with slight improvement compared with 07/25/2021. Pleural: Pleural effusions have likely decreased in size and are small. Cardiac: Cardiomegaly. Bones: No acute fractures. Other: IMPRESSION: Mild interstitial edema with some improvement compared with 07/25/2021.
[2021-08-23 11:45] LABS: ALT/SGPT 48 U/L (12-78); Albumin 3.2 g/dL (3.4-5.0); Alkaline Phosphatase 75 U/L (45-117); BUN Blood Urea Nitrogen 12 mg/dL (7-18); Bicarbonate 26 mmol/L (21-32); Bilirubin Direct 0.2 mg/dL (0-0.2); Bilirubin Total 0.6 mg/dL (0.2-1.0); Glucose Level 153 mg/dL (74-106); NT PRO-BNP 2031 pg/mL (<450); Protein, Total 6.9 g/dL (6.4-8.2); Sodium Level 136 mmol/L (136-145); Troponin (Emerg Dept Use Only) < 0.02 ng/mL (0.0-0.045)
[2021-08-23 11:46] LABS: AST/SGOT 30 U/L (15-37); Magnesium 2.7 mg/dL (1.8-2.4); Potassium 3.9 mmol/L (3.5-5.1)
--- NOTE | 2021-08-23 11:51 | RAD REPORT ---
EXAM DESCRIPTION: CT - Head Brain Wo Cont - 08/23/2021 11:45 am CLINICAL HISTORY: Nausea COMPARISON: Head Brain Wo Cont dated 06/03/2017; HEAD BRAIN W O CONTRAST dated 08/07/2010 TECHNIQUE: All CT scans are performed using dose optimization technique as appropriate and may inclu de automated exposure control or mA/KV adjustment according to patient size. FINDINGS: No intracranial hemorrhage, hydrocephalus or extra-axial fluid collection.No areas of brai n edema or evidence of midline shift. The paranasal sinuses and mastoids are clear. The calvarium is intact. IMPRESSION: No acute intracranial abnormality.
[2021-08-23 12:08] LABS: Anisocytosis SLIGHT; Blood Morphology Comment NOTED (NOT SEEN); Hypochromasia 1+; Ovalocytes 1+; Platelet Estimate ADEQ
[2021-08-23 12:09] LABS: SARS-COV-2 RT PCR NEGATIVE (NEGATIVE)
--- NOTE | 2021-08-23 13:55 | RAD REPORT ---
EXAM DESCRIPTION: CT - Abdomen Pelvis W Contrast - 08/23/2021 1:14 pm CLINICAL HISTORY: Abdominal pain/nausea COMPARISON: July 2021 TECHNIQUE: Computed axial tomography of the abdomen pelvis was obtained. 100 cc Isovue-300 was admin istered intravenously. Oral contrast was not requested which limits evaluation of bowel. All CT scans are performed using dose optimization technique as appropriate and may include automated exposure control or mA/KV adjustment according to patient size. FINDINGS: Small right pleural effusion The liver, spleen, pancreas, adrenal and right kidney appear unremarkable. 2.9 centimeter left renal cyst There is no evidence of diverticulitis. Normal appendix. The prostate gland is mildly enlarged IMPRESSION: Small right pleural effusion No acute intra-abdominal abnormality
--- NOTE | 2021-08-23 13:59 | ER ---
Nurse's Notes [facility] Name: Oleg Giles Age: 76 yrs Sex: Male : 1945 Arrival Date: 08/23/2021 Time: 10:19 Bed 16 Private MD: Diagnosis: Nausea Presentation: 08/23 10:47 Chief complaint: Patient states: nausea with shakiness x 2-3 mo worse in the last jh6 couple of days. Coronavirus screen: Vaccine status: Patient reports receiving the 2nd dose of the covid vaccine. Client denies travel out of the [place] in the last 14 days. At this time, unable to obtain information related to travel outside the [place] At this time, the client does not indicate any symptoms associated with coronavirus-19. Ebola Screen: Patient denies travel to an Ebola-affected area in the 21 days before illness onset. Initial Sepsis Screen: Does the patient meet any 2 criteria? No. Patient's initial sepsis screen is negative. Does the patient have a suspected source of infection? No. Patient's initial sepsis screen is negative. Risk Assessment: Do you want to hurt yourself or someone else? Patient reports no desire to harm self or others. Onset of symptoms was June 2022. 10:47 Method Of Arrival: Ambulatory [facility] 10:47 Acuity: ALEXANDREA 3 [facility] Triage Assessment: 10:53 General: Appears in no apparent distress. comfortable, well groomed, well developed, jh6 well nourished, Behavior is calm, cooperative, appropriate for age. Pain: Complains of pain in abdomen Pain currently is 4 out of 10 on a pain scale. Quality of pain is described as burning, Pain began 2-3 mo Aggravated by eating, drinking. GI: Abdomen is flat, non-distended, Reports constipation, nausea. Historical: - Allergies: 10:48 No Known Allergies; jh6 - PMHx: 10:48 Atrial fibrillation; Congestive heart failure; Heart Murmur; Hypercholesterolemia; jh6 Hypertensive disorder; Pneumonia; - PSHx: 11:07 cataract repair; cb5 - Immunization history:: Adult Immunizations up to date. - Social history:: Smoking status: Patient denies any tobacco usage or history of. Screenin:06 Abuse screen: Denies threats or abuse. Denies injuries from another. Nutritional cb5 screening: No deficits noted. Tuberculosis screening: No symptoms or risk factors identified. Fall Risk None identified. Assessment: 11:01 General: Appears in no apparent distress. comfortable, well groomed, Behavior is calm, cb5 cooperative. Pain: Complains of pain in abdomen Pain does not radiate. Pain currently is 4 out of 10 on a pain scale. Quality of pain is described as crampy. Neuro: No deficits noted. Cardiovascular: Reports patient reports past history of HTN, CVA, heart cath, denies MN. Pt denies any S.O.B, C/P at this time. Pt is on soda tester. Respiratory: No deficits noted. Reports pt denies any Shortness of breath or difficulty breathing at this time. GI: Patient currently denies. : No deficits noted. Denies. EENT: No deficits noted. Derm: No deficits noted. Musculoskeletal: No deficits noted. 14:15 Reassessment: Patient states feeling better. Patient states symptoms have improved. cb5 14:16 GI: No deficits noted. cb5 Vital Signs: 10:47 BP 137 / 68; Pulse 63; Resp 18; Temp 97.9; Pulse Ox 100% on R/A; Weight 79.83 kg; jh6 Height 5 ft. 5 in. (165.10 cm); Pain 2/10; 10:58 BP 133 / 65; Pulse 80; Resp 16; Temp 98.6; Pulse Ox 98% ; Pain 4/10; cb5 14:16 BP 128 / 67; Pulse 78; Resp 16; Temp 98.2; Pain 0/10; cb5 10:47 Body Mass Index 29.29 (79.83 kg, 165.10 cm) 6 ED Course: 10:19 Patient arrived in ED. ds1 10:39 Trena Reyes, DI is Primary Nurse. jh6 10:41 Anibal Baker NP is PHCP. pm1 10:41 Augusto Cassidy MD is Attending Physician. pm1 10:48 Triage completed. jh6 10:54 Patient placed in an exam room, in the treatment room, on a stretcher, on cardiac 6 monitor, on pulse oximetry. 11:03 XRAY Chest (1 view) In Process Unspecified. EDMS 11:07 Arm band placed on right wrist. cb5 11:07 Patient has correct armband on for positive identification. Bed in low position. Call cb5 light in reach. Side rails up X 1. 11:08 No provider procedures requiring assistance completed. cb5 11:44 CT Head Brain wo Cont In Process Unspecified. EDMS 13:14 CT Abd/Pelvis - IV Contrast Only In Process Unspecified. EDMS 14:36 IV discontinued, intact, bleeding controlled, No redness/swelling at site. Pressure 6 dressing applied. Administered Medications: 11:28 Drug: Zofran (Ondansetron) 4 mg Route: IVP; Site: right antecubital; cb5 13:00 Follow up: Response: No adverse reaction; Nausea is decreased 6 Outcome: 13:58 Discharge ordered by MD. pm1 14:35 Discharged to home ambulatory. [facility] 14:35 Condition: good 14:35 Discharge instructions given to patient, Instructed on discharge instructions, Demonstrated understanding of instructions, follow-up care. 14:37 Patient left the ED. [facility] Signatures: Dispatcher [employer] EDAL Christel Morgan ds1 Anibal Baker, LARRY FIRM ADMINISTRATOR pm1 Trena Reyes, RN RN jh6 Jenniffer Barksdale, RN RN cb5
--- NOTE | 2021-08-23 13:59 | EDPHYS ---
Physician Documentation [facility] Name: Oleg Giles Age: 76 yrs Sex: Male : 1945 Arrival Date: 08/23/2021 Time: 10:19 Bed 16 Private MD: ED Physician Augusto Cassidy HPI: 08/23 10:49 This 76 yrs old Male presents to ER via Ambulatory with complaints of Nausea. pm1 10:49 The patient presents to the emergency department with nausea. Onset: The pm1 symptoms/episode began/occurred 3 month(s) ago. Possible causes: unknown. The symptoms are aggravated by nothing. The symptoms are alleviated by nothing. Associated signs and symptoms: Pertinent positives: Chills, Pertinent negatives: abdominal pain, diarrhea, fever, vomiting, chest pain, shortness of breath. Severity of symptoms: in the emergency department the symptoms are unchanged Pain is currently a 0 / 10. The patient has not recently seen a physician. Patient reports onset of symptoms 3 months ago after release from hospital for pneumonia admission. Historical: - Allergies: 10:48 No Known Allergies; jh6 - PMHx: 10:48 Atrial fibrillation; Congestive heart failure; Heart Murmur; Hypercholesterolemia; jh6 Hypertensive disorder; Pneumonia; - PSHx: 11:07 cataract repair; cb5 - Immunization history:: Adult Immunizations up to date. - Social history:: Smoking status: Patient denies any tobacco usage or history of. ROS: 10:49 Constitutional: Negative for fever, chills, and weight loss, Cardiovascular: Negative pm1 for chest pain, palpitations, and edema, Respiratory: Negative for shortness of breath, cough, wheezing, and pleuritic chest pain. 10:49 Back: Negative for injury and pain, : Negative for injury, bleeding, discharge, and swelling, MS/Extremity: Negative for injury and deformity, Skin: Negative for injury, rash, and discoloration, Neuro: Negative for headache, weakness, numbness, tingling, and seizure. 10:49 Abdomen/GI: Positive for nausea, Negative for abdominal pain, vomiting, diarrhea, constipation. 10:49 All other systems are negative. Exam: 10:49 Constitutional: This is a well developed, well nourished patient who is awake, alert, pm1 and in no acute distress. Head/Face: Normocephalic, atraumatic. 10:49 Back: No spinal tenderness. No costovertebral tenderness. Full range of motion. Skin: Warm, dry with normal turgor. Normal color with no rashes, no lesions, and no evidence of cellulitis. MS/ Extremity: Pulses equal, no cyanosis. Neurovascular intact. Full, normal range of motion. 10:49 Eyes: Exam is negative for acute changes, Periorbital structures: appear normal, Pupils: no acute changes, Extraocular movements: no acute changes. 10:49 ENT: Exam is negative for acute changes, Mouth: no acute changes, Lips: normal, moist, Oral mucosa: normal, pink and intact, moist. 10:49 Cardiovascular: Exam negative for acute changes, Rate: normal, Rhythm: regular, Pulses: no pulse deficits are appreciated. 10:49 Respiratory: Exam negative for acute changes, respiratory distress, shortness of breath, Breath sounds: are clear throughout. 10:49 Abdomen/GI: Inspection: abdomen appears normal, Palpation: abdomen is soft and non-tender, in all quadrants. 10:49 Neuro: Exam negative for acute changes, Orientation: is normal, Mentation: is normal, Motor: is normal, moves all fours. 13:07 Abdomen/GI: Rectal exam: is unremarkable, rectal tone normal, Stool: brown, guaiac pm1 negative. Vital Signs: 10:47 BP 137 / 68; Pulse 63; Resp 18; Temp 97.9; Pulse Ox 100% on R/A; Weight 79.83 kg; 6 Height 5 ft. 5 in. (165.10 cm); Pain 2/10; 10:58 BP 133 / 65; Pulse 80; Resp 16; Temp 98.6; Pulse Ox 98% ; Pain 4/10; cb5 14:16 BP 128 / 67; Pulse 78; Resp 16; Temp 98.2; Pain 0/10; cb5 10:47 Body Mass Index 29.29 (79.83 kg, 165.10 cm) [facility] [place] MDM: 10:46 Patient medically screened. pm1 12:38 Data reviewed: vital signs. Data interpreted: Pulse oximetry: on room air is 98 %. pm1 Interpretation: normal. 12:38 Counseling: I had a detailed discussion with the patient and/or guardian regarding: the pm1 historical points, exam findings, and any diagnostic results supporting the discharge/admit diagnosis, lab results, radiology results, the need for outpatient follow up, to return to the emergency department if symptoms worsen or persist or if there are any questions or concerns that arise at home. 13:57 Counseling: I had a detailed discussion with the patient and/or guardian regarding: the pm1 historical points, exam findings, and any diagnostic results supporting the discharge/admit diagnosis, radiology results, the need for outpatient follow up, to return to the emergency department if symptoms worsen or persist or if there are any questions or concerns that arise at home. 08/23 10:47 Order name: Basic Metabolic Panel; Complete Time: 11:47 pm08/23 10:47 Order name: CBC with Diff; Complete Time: 12:11 pm08/23 10:47 Order name: LFT's; Complete Time: 11:47 pm08/23 10:47 Order name: Magnesium; Complete Time: 11:47 pm08/23 10:47 Order name: NT PRO-BNP; Complete Time: 11:47 pm08/23 10:47 Order name: PT-INR; Complete Time: 11:36 pm08/23 10:47 Order name: Troponin (emerg Dept Use Only); Complete Time: 11:47 pm1 08/23 10:47 Order name: XRAY Chest (1 view); Complete Time: 11:36 pm08/23 10:47 Order name: EKG; Complete Time: 10:48 pm08/23 10:48 Order name: CT Head Brain wo Cont; Complete Time: 11:54 pm08/23 10:49 Order name: COVID-19/FLU A+B (Document "Date of Onset" if Symptomatic); Complete Time: pm1 12:11 08/23 12:08 Order name: Manual Differential; Complete Time: 12:11 EDMS 08/23 12:59 Order name: CT Abd/Pelvis - IV Contrast Only; Complete Time: 13:56 pm08/23 10:47 Order name: Cardiac monitoring 08/23 10:47 Order name: EKG - Nurse/Tech 08/23 10:47 Order name: IV Saline Lock 08/23 10:47 Order name: Labs collected and sent 08/23 10:47 Order name: O2 Per Protocol 08/23 10:47 Order name: O2 Sat Monitoring pm1 08/23 11:55 Order name: Urine Dipstick-Ancillary (obtain specimen) pm1 Administered Medications: 11:28 Drug: Zofran (Ondansetron) 4 mg Route: IVP; Site: right antecubital; cb5 13:00 Follow up: Response: No adverse reaction; Nausea is decreased jh6 Disposition: 15:38 Co-signature as Attending Physician, Augusto Cassidy MD I agree with the assessment and rn plan of care. Attestation: The patient's history, exam findings, diagnostics, and a summary of any interventions or procedures was reviewed in detail with Anibal Baker NP. Disposition Summary: 08/23/21 13:58 Discharge Ordered Location: Home pm1 Problem: new pm1 Symptoms: have improved pm1 Condition: Stable pm1 Diagnosis - Nausea pm1 Followup: pm1 - With: Emergency Department - When: As needed - Reason: Worsening of condition Followup: pm1 - With: Private Physician - When: 2 - 3 days - Reason: Recheck today's complaints, Continuance of care, Re-evaluation by your physician Discharge Instructions: - Discharge Summary Sheet pm1 - Nausea, Adult pm1 Forms: - Medication Reconciliation Form pm1 - Thank You Letter pm1 - Antibiotic Education pm1 - Prescription Opioid Use pm1 Prescriptions: - ondansetron 4 mg Oral tablet,disintegrating - place 1 tablet by TRANSLINGUAL route every 8 hours As needed; 15 tablet; pm1 Refills: 0, Product Selection Permitted Signatures: Dispatcher [employer] EDAugusto Sheth MD MD rn Marinas, Patrick, NP [employer] pm1 Trena Reyes RN RN jh6 Jenniffer Barksdale, RN RN cb5
[2021-08-23 14:59] VITALS: O2SAT 98
[2021-08-23 15:00] VITALS: BP 128/67; TEMP 98.2
== END 2021-08-23 14:37 | disposition home or self-care (01) ==
LOC: ER 10:18
DX: R11.0 Nausea (principal); I10 Essential (primary) hypertension; I50.9 Heart failure, unspecified; Z20.822 Contact with and (suspected) exposure to COVID-19
CPT/HCPCS: 93005; 85025; 80048; 36415; 83735; 85610; 80076; 84484; 83880; 0240U; 70450; 74177; 71045; 96374; 99284; Q9967; J2405

== ENCOUNTER 2022-03-10 09:53 | Observation (INO) | payer OTHER ==
--- OUTSIDE RECORDS SUMMARY | 2022-03-10 10:06 | XMS REPORT | Continuity of Care Document ---
:1945 Author Organization [facility] t Address [address] [place] [address] Care Team Providers Name Role Phone Kai Montez MD Primary Care Physician [phone] ALBA BELTRAN Attending Clinician Unavailable [id number] Attending Clinician Unavailable ELLA Attending Clinician Unavailable ANAHI Attending Clinician Unavailable JOI PARK Attending Clinician Unavailable CATALINA Attending Clinician Unavailable RABIA Attending Clinician Unavailable LEXIS DOWNING Attending Clinician Unavailable BRIDGER Attending Clinician Unavailable MARAH JONES Attending Clinician Unavailable DANIEL Attending Clinician Unavailable RUSS QUINTANILLA Attending Clinician Unavailable VERONICA CODY Attending Clinician Unavailable GINGER SCOTT Attending Clinician Unavailable Herb Nath MD Attending Clinician Rocio ELLIS Attending Clinician Doctor Unassigned, Name Attending Clinician Unavailable ALBA BELTRAN Admitting Clinician Unavailable [id number] Admitting Clinician Unavailable ELLA Admitting Clinician Unavailable ADAMA HAMILTON Admitting Clinician Unavailable JL BIRD Admitting Clinician Unavailable RUSS QUINTANILLA Admitting Clinician Unavailable PARIS Admitting Clinician Unavailable SARBJIT Admitting Clinician Unavailable Herb Nath MD Admitting Clinician Payers Payer Name Policy Type Policy Number Effective Date Expiration Date S sue HUMM HUMM [id number] HLSM HLSM [id number] [id number] 2021 2021 HEALTHCARE 00:00:00 00:00:00 TOTALCARE SNP [id number] 2020 MEDICARE HMO-CIGNA 00:00:00 HUMANA MEDICARE ADV [id number] 2021 00:00:00 CIGNA HEALTHS[facility]ING [id number] 2020 HMO 00:00:00 Problems Condition Condition Condition Status Onset Resolution Last Treating Co mments Source Name Details Category Date Date Treatment Clinician Date No known No known Disease Unive rs active active ity of problems problems [facility] Allergies, Adverse Reactions, Alerts Allergy Allergy Status Severity Reaction(s) Onset Inactive Treating Comm ents Source Name Type Date Date Clinician Aspirin Propensi Active 2020-08 [facility] to 08-22 [place] adverse 00:00: of reaction 00 Medicin s to e drug APIXABAN Allergy Active [facility] [facility] ASPIRIN [facility]ergy [facility] NO KNOWN Allergy Active [facility] ALLERGIE S Social History Social Habit Start Date Stop Date Quantity Comments Source Tobacco use and 2021-06-22 2021-06-22 Smokeless tobacco [facility] exposure 00:00:00 00:00:00 non-user of Medicine Sex Ass[birth year] [facility] 00:00:00 00:00:00 of Medicine Smoking Status Start Date Stop Date Source Never smoked tobacco [facility] ege of Medicine Former smoker 2019-04-22 00:00:00 2019-04-22 00:00:00 [facility] Medications Ordered Filled Start Stop Current Ordering Indication Dosage Frequency Signature Comments Components Source Medication Medication Date Date Medication? Clinician (SIG) Name Name digoxin 2021- No 125ug Take 125 [facility] (LANOXIN) 2-24 02-24 mcg by [place] 125 MCG 10:03: 00:00 mouth of tablet 52 :00 daily. Medicin e furosemide 2021- No 40mg Take 40 mg [facility] (LASIX) 40 2-24 02-24 by mouth Mario ege MG tablet 10:03: 00:00 daily. of 52 :00 Medicin e losartan 2021- No 25mg Take 25 mg [facility] (COZAAR) 25 2-12 10-24 by mouth Col lege MG tablet 10:03: 00:00 daily. of 52 :00 Medicin e warfarin 2021- No 5mg Take 5 mg [place] (COUMADIN) 2-12 10-24 by mouth Mario ege 5 MG tablet 10:03: 00:00 daily. of 52 :00 Medicin e atorvastati 2021- No 20mg Take 20 mg [facility] n (LIPITOR) 2-24 -24 by mouth. Co llege 20 MG 10:03: 00:00 of tablet 52 :00 Medicin e amiodarone 2021- No 200mg Take 200 [facility] (PACERONE) 2-12 10-24 mg by [place] 200 MG 10:03: 00:00 mouth of tablet 52 :00 daily. Medicin e metoprolol 2021- No 12.5mg Take 12.5 [facility] (LOPRESSOR) 2- 02-24 mg by Colleg e 25 MG 09:59: 00:00 mouth two of tablet 39 :00 times Medicin daily. e lorazepam Yes 1mg Take 1 mg [place] [facility] (ATIVAN) 1 2-24 by mouth Colle ge MG tablet 09:55: nightly as of 38 needed for Medicin Anxiety. e Pantoprazol Yes Take by [facility] Sodium 40 2-24 mouth. Colleg e MG PACK 08:55: of 28 Medicin e senna-docus Yes 1{tbl} Take 1 [facility] ate 2-24 Tablet by [place] (PERICOLACE 08:55: mouth of ) 8.6-50 MG 28 daily. Medici n per tablet e Tamsulosin Yes Take by [place] [facility] HCl 0.4 MG 2-24 mouth. College CAPS 08:55: of 28 Medicin e thiamine Yes 100mg Take 100 [facility] 100 MG 2-24 mg by [place] tablet 08:55: mouth of 28 daily. Medicin e gabapentin Yes 100mg Take 100 [facility] (NEURONTIN) 2-24 mg by [place] 100 MG 08:54: mouth 3 of capsule 00 times Medicin daily. e Magnesium Yes Take by [facility] Oxide 400 2-24 mouth. [place] (241.3 Mg) 08:54: of MG TABS 00 Medicin e Aspirin 81 0 Yes 81mg Take 81 mg [facility] MG tablet 2-24 by mouth Colleg e 08:54: once. of 00 Medicin e ferrous 2021-0 Yes 325mg Take 325 [facility] sulfate 325 2-24 mg by [place] (65 Fe) MG 08:35: mouth 3 of tablet 07 times Medicin daily. e trazodone 0 Yes 50mg Take 50 mg [facility] (DESYREL) 2-24 by mouth Colleg e 50 MG 08:35: nightly. of tablet 07 Medicin e amiodarone 0 Yes [id number] 200mg Take 1 [facility] (PACERONE) 2-24 09 Tablet by Mario ege 200 MG 00:00: mouth of tablet 00 daily. Medicin e atorvastati 0 Yes [id number] 20mg Take 1 [facility] n (LIPITOR) 2-24 Tablet by Col lege 20 MG 00:00: mouth of tablet 00 daily. Medicin e digoxin 0 Yes [id number] 125ug Take 1 [facility] (LANOXIN) 2- 09 Tablet by Colle ge 125 MCG 00:00: mouth of tablet 00 daily. Medicin e furosemide 0 Yes [id number] 40mg Take 1 [facility] (LASIX) 40 2-24 09 Tablet by Mario ege MG tablet 00:00: mouth of 00 daily. Medicin e losartan 0 Yes [id number] 25mg Take 1 [facility] (COZAAR) 25 2-24 09 Tablet by Col lege MG tablet 00:00: mouth of 00 daily. Medicin e warfarin 0 Yes [id number] 5mg Take 1 [facility] (COUMADIN) 2-24 09 Tablet by Mario ege 5 MG tablet 00:00: mouth of 00 daily. Medicin e metoprolol 0 Yes [id number] Take 1/2 [facility] (TOPROL XL) 2-24 09 tablet Colleg e 25 MG XL 00:00: once a day of tablet 00 (12.5 mg) Medicin e metoprolol 2020-08- No 75mg Take 75 mg [facility] (LOPRESSOR) 1-30 11-30 by mouth Col lege 50 MG 15:25: 00:00 two times of tablet 29 :00 daily. Medicin e atorvastati 2020-08 Yes 20mg Take 20 mg [facility] n (LIPITOR) 1-30 by mouth. [...] tablet 07 Medicin e verapamil 2020-08 Yes [id number] 120mg Take 1 [facility] (VERELAN) 1-30 capsule by Mario ege 120 MG CR 00:00: mouth of capsule 00 daily. December Medici n take e additional 1 tablet daily as needed. ondansetron 2020-08 Yes [id number] 4mg Take 1 [facility] (ZOFRAN-ODT 1-30 Tablet by Col lege ) 4 mg 00:00: mouth of disintegrat 00 every 8 Medic in ing tablet hours as e needed for Nausea. ondansetron 2020-08 Yes [id number] 4mg Take 1 [facility] (ZOFRAN-ODT 1-30 Tablet by Col lege ) 4 mg 00:00: mouth of disintegrat 00 every 8 Medic in ing tablet hours as e needed for Nausea. verapamil 2020-08- No [id number] 120mg Take 1 [facility] (VERELAN) 1-30 02-24 capsule by Col lege 120 MG CR 00:00: 00:00 mouth of capsule 00 :00 daily. May Medici n take e additional 1 tablet daily as needed. atorvastati 2020-08 Yes 20mg Take 20 mg [facility] n (LIPITOR) 1-04 by mouth. Col [...] times Medicin daily. e benzonatate 2020-08 Yes [facility] (TESSALON) 0-25 College 100 mg 00:00: of capsule 00 Medicin e benzonatate 2020-08- No [facility] (TESSALON) 0-25 11-30 College 100 mg 00:00: 00:00 of capsule 00 :00 Medicin e docusate 2020-08 Yes [facility] sodium 0-17 College (COLACE) 00:00: of 100 MG 00 Medicin capsule e metoprolol 2020-08 Yes [facility] (LOPRESSOR) 0-17 College 25 MG 00:00: of tablet 00 Medicin e docusate 2020-08 Yes [facility] sodium 0-17 College (COLACE) 00:00: of 100 MG 00 Medicin capsule e docusate 2020-08 Yes [facility] sodium 0-17 College (COLACE) 00:00: of 100 MG 00 Medicin capsule e metoprolol 2020-08- No [facility] (LOPRESSOR) 0-17 11-30 College 25 MG 00:00: 00:00 of tablet 00 :00 Medicin e promethazin 2020-08 Yes [facility] e 0-11 College (PHENERGAN) 00:00: [...] of 00 :00 Medicin e Apixaban 5 2020-08- No 5mg Take 5 mg [facility] MG TABS 08-18 by mouth College 00:00: 05:59 two times of 00 :00 daily. Medicin e furosemide 202-0 2020- No 40mg Take 40 mg [facility] (LASIX) 40 05-11 by mouth. Col lege MG tablet 00:00: 05:59 of 00 :00 Medicin e Aspirin 81 202-0 202- No 81mg Take 81 mg [facility] MG tablet 05-11 by mouth. Mario ege 00:00: 05:59 of 00 :00 Medicin e furosemide 2021-0 2020- No 40mg Take 40 mg [facility] (LASIX) 40 05-11 by mouth. Col lege MG tablet 00:00: 05:59 of 00 :00 Medicin e Aspirin 81 2020-0 2020- No 81mg Take 81 mg [facility] MG tablet 05-1130 by mouth. Mario ege 00:00: 00:00 of 00 :00 Medicin e atorvastati 2018-0 Yes 20mg Take 20 mg Univers n 20 mg 9-04 by mouth ity of tablet 14:02: at [place] [address] bedtime. Medical Branch clopidogrel 2019-0 Yes 75mg Take 75 mg Univers 75 mg 9-04 by mouth ity of tablet 14:02: daily. Medical Branch valsartan 2019-0 Yes 320mg Take 320 Uni vers 320 mg 9-04 mg by ity of tablet 14:02: mouth [place] 00 daily. Medical Branch atorvastati 20190 Yes 20mg Take 20 mg Univers n 20 mg 9-04 by mouth ity of tablet 14:02: at [place] 00 bedtime. Medical Branch clopidogrel 2019-0 Yes 75mg Take 75 mg Univers 75 mg 9-04 by mouth ity of tablet 14:02: daily. Medical Branch valsartan 2019-0 Yes 320mg Take 320 Uni vers 320 mg 9-04 mg by ity of tablet 14:02: mouth [place] 00 daily. Medical Branch atorvastati 20190 Yes 20mg Take 20 mg Univers n 20 mg 9-04 by mouth ity of tablet 14:02: at [place] 00 bedtime. Medical Branch clopidogrel 2019-0 Yes 75mg Take 75 mg Univers 75 mg 9-04 by mouth ity of tablet 14:02: daily. Medical Branch valsartan 2019-0 Yes 320mg Take 320 Uni vers 320 mg 9-04 mg by ity of tablet 14:02: mouth [place] 00 daily. Medical Branch ondansetron 2019-0 Yes 4mg 4 mg, Slow Univers (ZOFRAN - IV Push, ity of (PF)) 13:19: PRN, 1 [place] injection 4 48 dose, Medical mg Starting Branch Sat04/22/19 at 0819, Until Discontinu ed, Routine, Nausea and Vomiting (N/V), PACU FENTanyl PF 2019-0 Yes 25ug 25 mcg, Uni vers (SUBLIMAZE 9-04 Slow IV ity of (PF)) 13:19: Push, [place] injection 47 Q5MIN PRN, Medi allison 25 mcg 4 doses, Branch Starting Sat04/22/19 at 0819, Until Discontinu ed, Routine, Pain (scale 7-10), PACU FENTanyl PF 2019- Yes 25ug 25 mcg, Uni vers (SUBLIMAZE [...] Until Sat04/22/19 at 0814, Routine, Intra-op lidocaine 2018-0 2019- No ONCE INTRA U nivers 1% [...] Date Status Commen ts Source Name Name Pfizer SARS-CoV-2 2021-07-18 Completed [facility] Vaccination 00:00:00 of Medicine Pfizer SARS-CoV-2 2021-07-18 Completed [facility] Vaccination 00:00:00 of Medicine Vital Signs Vital Name Observation Time Observation Value Comments Source WEIGHT 2021-05-06 08:52:00 88.2 kg WEIGHT 2021-05-03 09:54:00 92.08 kg HEIGHT 2021-04-28 15:00:00 165.1 cm Systolic blood 2021-10-12 14:35:00 116 mm[Hg] [facility] pressure Medicine Diastolic blood 2021-10-12 14:35:00 76 mm[Hg] [facility] pressure Medicine Heart rate 2021-10-12 14:35:00 121 /min [facility] Respiratory rate 2021-10-12 14:35:00 16 /min [facility] Body height 2021-10-12 14:35:00 167.6 cm [facility] Body weight 2021-10-12 14:35:00 83.008 kg [facility] BMI 2021-10-12 14:35:00 29.54 kg/m2 [facility] Oxygen saturation in 2021-10-12 14:35:00 99 /min [facility] Arterial blood by Medicine Pulse oximetry HEIGHT 2021-10-04 08:58:00 167.6 cm WEIGHT 2021-10-04 08:58:00 74.39 kg WEIGHT 2021-09-19 02:35:00 78.926 kg WEIGHT 2021-09-18 06:00:00 71.124 kg WEIGHT 2021-09-17 03:50:00 71.94 kg WEIGHT 2021-09-16 03:41:00 73.347 kg WEIGHT 2021-09-15 04:02:00 74.39 kg WEIGHT 2021-09-14 05:00:00 79.1 kg WEIGHT 2021-09-13 04:00:00 78.3 kg WEIGHT 2021-09-12 06:00:00 77.4 kg WEIGHT 2021-09-11 03:45:00 77.4 kg WEIGHT 2021-09-10 02:00:00 79 kg WEIGHT 2021-09-09 05:15:00 78.5 kg WEIGHT 2021-09-07 05:10:00 71.9 kg WEIGHT 2021-09-06 05:46:00 71 kg WEIGHT 2021-09-04 05:38:00 72.7 kg HEIGHT 2021-08-31 12:27:00 167.6 cm WEIGHT 2021-08-31 12:27:00 74.163 kg WEIGHT 2021-09-19 02:35:00 78.926 kg WEIGHT 2021-09-18 06:00:00 71.124 kg WEIGHT 2021-09-17 03:50:00 71.94 kg WEIGHT 2021-09-16 03:41:00 73.347 kg WEIGHT 2021-09-15 04:02:00 74.39 kg WEIGHT 2021-09-14 05:00:00 79.1 kg WEIGHT 2021-09-13 04:00:00 78.3 kg WEIGHT 2021-09-12 06:00:00 77.4 kg WEIGHT 2021-09-11 03:45:00 77.4 kg WEIGHT 2021-09-10 02:00:00 79 kg WEIGHT 2021-09-09 05:15:00 78.5 kg WEIGHT 2021-09-07 05:10:00 71.9 kg WEIGHT 2021-09-06 05:46:00 71 kg WEIGHT 2021-09-04 05:38:00 72.7 kg HEIGHT 2021-08-31 12:27:00 167.6 cm WEIGHT 2021-08-31 12:27:00 74.163 kg Systolic blood 2021-07-18 20:56:00 118 mm[Hg] [facility] pressure Medicine Diastolic blood 2021-07-18 20:56:00 70 mm[Hg] [facility] pressure Medicine Heart rate 2021-07-18 20:56:00 102 /min [facility] Respiratory rate 2021-07-18 20:56:00 16 /min [facility] Body height 2021-07-18 20:56:00 167.6 cm [facility] Body weight 2021-07-18 20:56:00 83.008 kg [facility] BMI 2021-07-18 20:56:00 29.54 [facility] Oxygen saturation in 2021-07-18 20:56:00 100 /min [facility] blood by Medicine Pulse oximetry HEIGHT 2021-07-03 20:00:00 167.6 cm WEIGHT 2021-07-03 20:00:00 81.8 kg HEIGHT 2021-07-03 12:30:00 167.6 cm WEIGHT 2021-07-03 12:30:00 76.204 kg HEIGHT 2021-07-03 20:00:00 167.6 cm WEIGHT 2021-07-03 20:00:00 81.8 kg HEIGHT 2021-07-03 12:30:00 167.6 cm WEIGHT 2021-07-03 12:30:00 76.204 kg Systolic blood 2021-06-22 13:19:00 140 mm[Hg] [facility] pressure Medicine Diastolic blood 2021-06-22 13:19:00 82 mm[Hg] [facility] Medicine Heart rate 2021-06-22 13:19:00 86 /min [facility] ollege of Medicine Body temperature 2021-06-22 13:19:00 36.83 Lalita [facility] Body height 2021-06-22 13:19:00 167.6 cm [facility] ollege of Medicine Body weight 2021-06-22 13:19:00 84.732 kg [facility] ollege of Medicine BMI 2021-06-22 13:19:00 30.15 kg/m2 [facility] C ollege of Medicine WEIGHT 2021-05-23 22:20:00 83.643 kg HEIGHT 2021-05-23 [...] 13:42:00 140 mm[Hg] Univer sity of pressure [facility] Diastolic blood 2019-04-22 13:42:00 73 mm[Hg] Unive rsity of pressure [facility] Heart rate 2019-04-22 13:42:00 56 /min Universi ty of [facility] Respiratory rate 2019-04-22 13:42:00 16 /min [facility] saturation in 2019-04-22 13:42:00 99 /min [facility] Arterial blood by [facility] Pulse oximetry Branch Body temperature 2019-04-22 13:27:00 36.33 Lalita [facility] Body height 2019-04-17 16:00:00 162.6 cm [facility] Body weight 2019-04-17 16:00:00 91.173 kg [facility] BMI 2019-04-17 16:00:00 34.50 kg/m2 [facility] Systolic blood 2019-04-22 13:42:00 140 mm[Hg] Univer sity of pressure [facility] Diastolic blood 2019-04-22 13:42:00 73 mm[Hg] Unive rsity of [facility] Heart rate 2019-04-22 13:42:00 56 /min [facility] Respiratory rate 2019-04-22 13:42:00 16 /min [facility] Oxygen saturation in 2019-04-22 13:42:00 99 /min [facility] Arterial blood by [facility] Pulse oximetry [place] Body temperature 2019-04-22 13:27:00 36.33 Lalita [facility] Body height 2019-04-17 16:00:00 162.6 cm [facility] Body weight 2019-04-17 16:00:00 91.173 kg [facility] BMI 2019-04-17 16:00:00 34.50 kg/m2 [facility] Procedures Procedure Date / Time Performing Clinician Source Performed ELECTROCARDIOGRAM COMPLETE 2021-10-12 15:06:00 [facility] ELECTROCARDIOGRAM COMPLETE 2021-07-18 21:05:00 [facility] EGD (ENDO) 2019-04-22 12:55:59 Willy Montez [facility] R [facility] DAY SURGERY - ADC 2019-04-22 05:01:00 Doctor Unassigned, [facility] Plan of Care Planned Activity Planned Date Details Comments Source Future Scheduled 2021-12-07 ECHO, COMPLETE [code = Expected: B [facility] Test 00:00:00 16058] 12/07/2021, of Medicine Expires: 04/11/2022 Future Scheduled 2021-10-12 ELECTROCARDIOGRAM [facility] Test 08:58:20 COMPLETE [code = 21854] of M edicine Future Scheduled 2021-10-12 TETANUS SHOT (ADULT) [place] [facility] Test 08:34:44 [code = TETANUS SHOT of Medi cine (ADULT)] Future Scheduled 2021-10-12 BMI FOLLOW UP PLAN [code [facility] Test 08:34:44 = BMI FOLLOW UP PLAN] of Med icine Future Scheduled 2021-10-12 Hepatitis C screening [facility] Test 08:34:44 (procedure) [code = of Medic ine [id number]] Future Scheduled 2021-10-12 ZOSTER VACCINE (1 of 2) [facility] Test 08:34:44 [code = ZOSTER VACCINE of Me dicine (1 of 2)] Future Scheduled 2021-10-12 FALL SCREEN [code = FALL [facility] Test 08:34:44 SCREEN] of Medicine Future Scheduled 2021-10-12 Pneumococcal 65+ (1 of 1 [facility] Test 08:34:44 - PPSV23) [code = of Medicin e Pneumococcal 65+ (1 of 1 - PPSV23)] Future Scheduled 2021-10-12 FLU VACCINE > 6 MONTHS [facility] Test 08:34:44 [code = FLU VACCINE > 6 of M edicine MONTHS] Future Scheduled 2021-10-12 [facility]IC[facility] 08:34:44 TO MEDICARE) [code = of Medi cine MEDICARE IPPE (WELCOME TO MEDICARE)] Future Scheduled 2021-07-20 Pneumococcal 65+ (1 of 2 [facility] Test 15:04:42 - PPSV23) [code = of Medicin e Pneumococcal 65+ (1 of 2 - PPSV23)] Future Scheduled 2021-07-20 TETANUS SHOT (ADULT) [place] [facility] Test 15:04:42 [code = TETANUS SHOT of Medi cine (ADULT)] Future Scheduled 2021-07-20 BMI FOLLOW UP PLAN [code [facility] Test 15:04:42 = BMI FOLLOW UP PLAN] of Med icine Future Scheduled 2021-07-20 Hepatitis C screening [facility] Test 15:04:42 (procedure) [code = of Medic ine [id number]] Future Scheduled 2021-07-20 ZOSTER VACCINE (1 of 2) [facility] Test 15:04:42 [code = ZOSTER VACCINE of Me dicine (1 of 2)] Future Scheduled 2021-07-20 FALL SCREEN [code = FALL [facility] Test 15:04:42 SCREEN] of Medicine Future Scheduled 2021-07-20 MEDICARE IPPE (WELCOME B [facility] Test 15:04:42 TO MEDICARE) [code = of Medi cine MEDICARE IPPE (WELCOME TO MEDICARE)] Future Scheduled 2021-07-20 FLU VACCINE > 6 MONTHS B [facility] Test 15:04:42 [code = FLU VACCINE > 6 of M edicine MONTHS] Future Scheduled 2021-07-18 ELECTROCARDIOGRAM [facility] Test 15:05:03 COMPLETE [code = 97244] of M edicine Future Scheduled 2021-06-22 CBC W/AUTO DIFF WITH Ordered: [facility] Test 09:11:41 PLATELETS [code = 06/22/2021 of Medicin e 22167-5] Future Scheduled 2021-06-22 FERRITIN [code = Ordered: [facility] Test 09:11:41 24946-1] 06/22/2021 of Medicine Future Scheduled 2021-06-22 IRON+TIBC+%SAT [code = Ordered: [facility] Test 09:11:41 NOCPT] 06/22/2021 of Medicine Future Scheduled 2021-06-22 TETANUS SHOT (ADULT) [facility] Test 08:19:01 [code = TETANUS SHOT of Medi cine (ADULT)] Future Scheduled 2021-06-22 Hepatitis C screening [facility] Test 08:19:01 (procedure) [code = of Medic ine [id number]] Future Scheduled 2021-06-22 ZOSTER VACCINE (1 of 2) [facility] Test 08:19:01 [code = ZOSTER VACCINE of Me dicine (1 of 2)] Future Scheduled 2021-06-22 FALL SCREEN [code = FALL [facility] Test 08:19:01 SCREEN] of Medicine Future Scheduled 2021-06-22 PNEUMOVAX >=65 (PPSV23) [facility] Test 08:19:01 [code = PNEUMOVAX >=65 of Me dicine (PPSV23)] Future Scheduled 2021-06-22 MEDICARE IPPE (WELCOME B [facility] Test 08:19:01 TO MEDICARE) [code = of Medi cine MEDICARE IPPE (WELCOME TO MEDICARE)] Future Scheduled 2021-06-22 FLU VACCINE > 6 MONTHS [facility] Test 08:19:01 [code = FLU VACCINE > 6 of M edicine MONTHS] Encounters Start End Encounter Admission Attending Care Care Encounter Source Date/Time Date/Time Type Type Clinicians Facility Department ID 2021-09-20 Outpatient 3 VICKY BELTRAN CRD [id number] [facility] 15:05:33 ALBA 0202 2021-09-15 Outpatient 3 VICKY BELTRAN CRD [id number] [facility] 14:41:07 ALBA 0128 2021-09-14 Outpatient 3 [id number] [facility] CRD [id number] [facility] 13:28:13 1209 2021-09-14 Outpatient 3 [id number] [facility] REF [id number] [facility] 13:27:27 1208 2021-09-14 Outpatient 3 [id number] [facility] REF [id number] [facility] 13:27:13 1207 2021-05-28 Inpatient ER ELLA BRITTANYAlexandra Gastro [id number] SLE 12:00:47 RYLAN 2021-10-12 2021-10-12 Office GREG CHRISTIAN [id number] [facility] 08:21:22 11:05:40 Visit MAHBOOB AMBULATOR [id number] College Y [id number] of [id number] Medi eddie 375 e 2021-10-04 2021-10-04 Outpatient [facility] [id number] SLE 08:41:28 08:41:28 [facility] 2021-08-31 2021-09-19 Inpatient ER CATALINA FRACISCO Surgery [id number] SLE 12:30:00 17:01:00 [facility] 2021-09-03 2021-09-03 Outpatient NAVYA CAMARILLO [id number] Navya 00:00:00 00:00:00 ELLIS Seybol d 2021-09-02 2021-09-02 Outpatient [facility] [id number] [facility] 00:00:00 23:59:00 Colleg e of Medicin e 2021-08-31 2021-08-31 Outpatient [facility] [id number] [facility] 12:30:00 23:59:00 Colleg e of Medicin e 2021-07-28 2021-08-04 Inpatient 3 VICKY BELTRAN CRD [id number] [facility] 12:00:00 11:50:00 ALBA 1210 2021-07-18 2021-07-18 Outpatient BCM [facility] [id number] [facility] 15:48:01 16:26:04 Colleg e of Medicin e 2021-07-18 2021-07-18 Office GREG CHRISTIAN [id number] [facility] 14:30:22 16:15:56 Visit MAHBOOB AMBULATOR [id number] College Y [id number] of [id number] Medi eddie 375 e 2021-07-03 2021-07-04 Outpatient ER DARLENE SPARKS [facility] [id number] [facility] 12:24:00 14:27:00 2021-07-03 2021-07-03 Outpatient [facility] [id number] [facility] 00:00:00 23:59:00 Colleg e of Medicin e 2021-06-22 2021-06-22 Office REX SANCHEZ [id number] [facility] 08:13:37 11:39:39 Visit RICK AMBULATOR [id number] College Y [id number] of [id number] Medi eddie 325 e 2021-05-23 2021-05-26 [facility]patient [facility] [id number] [facility] 15:12:00 15:03:00 MALKA 2021-05-23 2021-05-23 Outpatient [facility] [id number] [facility] 00:00:00 23:59:00 Colleg e of Medicin e 2021-05-20 2021-05-20 Emergency [facility] [id number] [facility]00 01:57:00 2021-05-15 2021-05-15 Outpatient B[facility] [id number] [facility] 00:00:00 23:59:00 [facility] 2021-05-15 2021-05-15 Emergency ER [facility] [id number] [facility] 12:00:00 12:00:00 2021-04-29 2021-04-29 Outpatient BCM [facility] [id number] [facility] 00:00:00 23:59:00 [facility] 2021-04-28 2021-04-28 Outpatient [facility] [id number] [facility] 12:32:00 23:59:00 [facility] 2019-04-22 2019-04-22 [facility] 1.2.840.114 [id number] [facility] 06:15:00 08:56:00 Encounter Katy mena 350.1.13.10 [place] [id number] [address] 2019-04-22 2019-04-22 [facility] 1.2.840.114 7 [id number] 06:15:00 08:56:00 Encounter Katy mena 350.1.13.10 [place] 4.2.7.2.686 Surgical [id number] [place] [address] 2019-04-22 2019-04-22 Anesthesia [facility] 1.2.840.114 [id number] [facility] 07:54:00 08:13:00 Jaden Loyola 350.1.13.10 [place] [id number] [address] 2019-04-22 2019-04-22 Anesthesia [facility] 1.2.840.114 [id number] 07:54:00 08:13:00 Jaden Loyola 350.1.13.10 [place] 4.2.7.2.686 Surgical [id number] [place] [address] 2019-04-22 2019-04-22 Orders Doctor MURILLO 1.2.840.[id number] [place] [address] 00:00:00 00:00:00 Only Unassigned, ANA MARIA 350.1.13.10 ity of [facility] 4.2.7.2.686 T[place] as [id number] [address] 2019-04-22 2019-04-22 Orders Doctor MURILLO 1.2.840.114 [id number] 00:00:00 00:00:00 Only Unassigned, ANA MARIA 350.1.13.10 [place] [facility] 4.2.7.2.686 [id number] [id number] Results Test Description Test Time Test Comments Results Result Comments Source BASIC METABOLIC PANEL 2021-09-19 06:01:25 Test Item Value Reference Range Interpretation Comme nts SODIUM (BEAKER) (test code 134 meq/L 136-145 L = 381) POTASSIUM (BEAKER) (test 4.0 meq/L 3.5-5.1 code = 379) CHLORIDE (BEAKER) (test 99 meq/L 98-107 code = 382) CO2 (BEAKER) (test code = 27 meq/L 22-29 355) BLOOD UREA NITROGEN 9 mg/dL 7-21 (BEAKER) (test code = 354) CREATININE (BEAKER) (test 0.70 mg/dL 0.57-1.25 code = 358) GLUCOSE RANDOM (BEAKER) 93 mg/dL 70-105 (test code = 652) CALCIUM (BEAKER) (test 9.0 mg/dL 8.4-10.2 code = 697) EGFR (BEAKER) (test code = 109 mL/min/1.73 sq m ESTIMATED GFR IS NOT 1092) ACCURATE CRE ATININE CLEARANCE IN CO EDICTING GLOMERULAR FILT RATION RATE. ESTIMATED GFR IS NOT APPLICABLE FOR DIALYSIS PATIENTS. [employer] Inspector ID - KEARA WOperator ID - KAYLEEN [id number] 04:56:54 Test Item Value Reference Range Interpretation Comments PHOSPHORUS (BEAKER) (test code = 4.1 mg/dL 2.3-4.7 604) [employer] Inspector ID - KEARA [id number] 04:56:53 Test Item Value Reference Range Interpretation Comments MAGNESIUM (BEAKER) (test code = 2.1 mg/dL 1.6-2.6 627) [employer] Inspector ID - KEARA WCALCIUM, [id number] 04:30:35 Test Item Value Reference Range Interpretation Comments CALCIUM IONIZED (BEAKER) (test 1.13 mmol/L 1.12-1.27 code = 698) PH, BLOOD (BEAKER) (test code = 7.47 1810) PROTHROMBIN [id number] 04:04:47 Test Item Value Reference Range Interpretation Comments PROTIME (BEAKER) 27.1 seconds 11.9-14.2 H (test code = 759) INR (BEAKER) (test 2.54 See_Comment [Automat ed message] code = 370) The system Spotistic generated this result transmitted ref erence range: <=5.90. The reference range was not used to int erpret this result as normal/abnormal . RECOMMENDED COUMADIN/WARFARIN INR THERAPY RANGESSTANDARD DOSE: 2.0 - 3.0 Includes: PROPHYLAXIS forvenous thrombosis, systemic embolization; TREATMENT for venous thrombosis and/or pulmonary embolus.HIGH RISK: Target INR is 2.5-3.5 for patients with mechanical heart valves.CBC W/PLT COUNT & AUTO DIFFERENTIAL 2021-09-19 03:57:43 Test Item Value Reference Range Interpretation Comments WHITE BLOOD CELL COUNT (BEAKER) 5.3 K/ L 3.5-10.5 (test code = 775) RED BLOOD CELL COUNT (BEAKER) 3.86 M/ L 4.63-6.08 L (test code = 761) HEMOGLOBIN (BEAKER) (test code = 10.4 GM/DL 13.7-17.5 L 410) HEMATOCRIT (BEAKER) (test code = 34.5 % 40.1-51.0 L 411) MEAN CORPUSCULAR VOLUME (BEAKER) 89.4 fL 79.0-92.2 (test code = 753) MEAN CORPUSCULAR HEMOGLOBIN 26.9 pg 25.7-32.2 (BEAKER) (test code = 751) MEAN CORPUSCULAR HEMOGLOBIN CONC 30.1 GM/DL 32.3-36.5 L (BEAKER) (test code = 752) RED CELL DISTRIBUTION WIDTH 21.1 % 11.6-14.4 H (BEAKER) (test code = 412) PLATELET COUNT (BEAKER) (test 365 K/CU MM 150-450 code = 756) MEAN PLATELET VOLUME (BEAKER) 9.1 fL 9.4-12.4 L (test code = 754) NUCLEATED RED BLOOD CELLS 0 /100 WBC 0-0 (BEAKER) (test code = 413) NEUTROPHILS RELATIVE PERCENT 73 % (BEAKER) (test code = 429) LYMPHOCYTES RELATIVE PERCENT 16 % (BEAKER) (test code = 430) MONOCYTES RELATIVE PERCENT 7 % (BEAKER) (test code = 431) EOSINOPHILS RELATIVE PERCENT 3 % (BEAKER) (test code = 432) BASOPHILS RELATIVE PERCENT 1 % (BEAKER) (test code = 437) NEUTROPHILS ABSOLUTE COUNT 3.88 K/ L 1.78-5.38 (BEAKER) (test code = 670) LYMPHOCYTES ABSOLUTE COUNT 0.84 K/ L 1.32-3.57 L (BEAKER) (test code = 414) MONOCYTES ABSOLUTE COUNT (BEAKER) 0.38 K/ L 0.30-0.82 (test code = 415) EOSINOPHILS ABSOLUTE COUNT 0.18 K/ L 0.04-0.54 (BEAKER) (test code = 416) BASOPHILS ABSOLUTE COUNT (BEAKER) 0.03 K/ L 0.01-0.08 (test code = 417) IMMATURE GRANULOCYTES-RELATIVE 0 % 0-1 PERCENT (BEAKER) (test code = 2801) COMPREHENSIVE METABOLIC [id number] 11:28:15 Test Item Value Reference Range Interpretation Comments TOTAL PROTEIN 5.6 gm/dL 6.0-8.3 L (BEAKER) (test code = 770) ALBUMIN (BEAKER) 2.9 g/dL 3.5-5.0 L (test code = 1145) ALKALINE PHOSPHATASE 146 U/L 40-150 (BEAKER) (test code = 346) BILIRUBIN TOTAL 0.6 mg/dL 0.2-1.2 (BEAKER) (test code = 377) SODIUM (BEAKER) (test 134 meq/L 136-145 L code = 381) POTASSIUM (BEAKER) 4.2 meq/L 3.5-5.1 (test code = 379) CHLORIDE (BEAKER) 101 meq/L 98-107 (test code = 382) CO2 (BEAKER) (test 25 meq/L 22-29 code = 355) BLOOD UREA NITROGEN 9 mg/dL 7-21 (BEAKER) (test code = 354) CREATININE (BEAKER) 0.70 mg/dL 0.57-1.25 (test code = 358) GLUCOSE RANDOM 96 mg/dL 70-105 (BEAKER) (test code = 652) CALCIUM (BEAKER) 8.7 mg/dL 8.4-10.2 (test code = 697) AST (SGOT) (BEAKER) 46 U/L 5-34 H (test code = 353) ALT (SGPT) (BEAKER) 60 U/L 6-55 H (test code = 347) EGFR (BEAKER) (test 109 ESTIMATE D GFR IS code = 1092) mL/min/1.73 sq NOT ACCURA TE m CREATININE CLEARANCE IN PREDICTING GLOMERULAR FILTRATION RATE . ESTIMATED GFR I S NOT APPLICABLE FOR DIALYSIS PATIEN TS. [employer] Inspector ID - PIAYA LRAD, CHEST, 1 VIEW, NON [id number] 07:44:00Reason for exam:->S/p Ct SurgeryShould this be performed at the bedside?->Yes [facility] : 1945 Sex: MFINAL REPORT RAD, CHEST, 1 VIEW, NON DEPT INDICATION: S/p Ct Surgery COMPARISON: Prior day's exam FINDINGS: Portable frontal view of the chest. IMPRESSION: Support Lines: Overlying leads. Lungs and pleura: Bibasilar atelectasis and basilar opacities, unchanged. No significant pneumothorax. Heart and mediastinum: Stable contours. Additional findings: None. Signed: Griselda Cordero MDReport Verified Date/Time: 09/18/2021 07:44:52 Reading Location: [facility] Radiology Reading Room PROTHROMBIN [id number] 04:28:26 Test Item Value Reference Range Interpretation Comments PROTIME ([place]) 24.0 seconds 11.9-14.2 H (test code = 759) INR ([place]) (test 2.18 See_Comment [Automat ed message] code = 370) The system Spotistic generated this result transmitted ref erence range: <=5.90. The reference range was not used to int erpret this result as normal/abnormal . RECOMMENDED COUMADIN/WARFARIN INR THERAPY RANGESSTANDARD DOSE: 2.0 - 3.0 Includes: PROPHYLAXIS forvenous thrombosis, systemic embolization; TREATMENT for venous thrombosis and/or pulmonary embolus.HIGH RISK: Target INR is 2.5-3.5 for patients with mechanical heart valves.[id number] 04:17:02 Test Item Value Reference Range Interpretation Comments MAGNESIUM (BEAKER) (test code = 2.0 mg/dL 1.6-2.6 627) [employer] Inspector ID - [id number] 04:17:02 Test Item Value Reference Range Interpretation Comments PHOSPHORUS (BEAKER) (test code = 3.6 mg/dL 2.3-4.7 604) [employer] S[employer]lasses Inspector ID - DBBASIC METABOLIC [id number] 04:17:01 Test Item Value Reference Range Interpretation Comments SODIUM (BEAKER) 134 meq/L 136-145 L (test code = 381) POTASSIUM (BEAKER) 4.0 meq/L 3.5-5.1 (test code = 379) CHLORIDE (BEAKER) 100 meq/L 98-107 (test code = 382) CO2 (BEAKER) (test 25 meq/L 22-29 code = 355) BLOOD UREA NITROGEN 9 mg/dL 7-21 (BEAKER) (test code = 354) CREATININE (BEAKER) 0.72 mg/dL 0.57-1.25 (test code = 358) GLUCOSE RANDOM 102 mg/dL 70-105 (BEAKER) (test code = 652) CALCIUM (BEAKER) 8.8 mg/dL 8.4-10.2 (test code = 697) EGFR (BEAKER) (test 106 mL/min/1.73 ESTIM ATED GFR IS code = 1092) sq m NOT ACCURATE CREATININE CLEARANCE IN PREDICTING GLOMERULAR FILTRATION RATE . ESTIMATED GFR I S NOT APPLICABLE FOR DIALYSIS PATIEN TS. [employer] Inspector ID - DBCALCIUM, [id number] 03:53:15 Test Item Value Reference Range Interpretation Comments CALCIUM IONIZED (BEAKER) (test 1.13 mmol/L 1.12-1.27 code = 698) PH, BLOOD (BEAKER) (test code = 7.47 1810) CBC W/PLT COUNT & AUTO [id number] 03:52:23 Test Item Value Reference Range Interpretation Comments WHITE BLOOD CELL COUNT (BEAKER) 5.7 K/ L 3.5-10.5 (test code = 775) RED BLOOD CELL COUNT (BEAKER) 3.78 M/ L 4.63-6.08 L (test code = 761) HEMOGLOBIN (BEAKER) (test code = 10.4 GM/DL 13.7-17.5 L 410) HEMATOCRIT (BEAKER) (test code = 33.7 % 40.1-51.0 L 411) MEAN CORPUSCULAR VOLUME (BEAKER) 89.2 fL 79.0-92.2 (test code = 753) MEAN CORPUSCULAR HEMOGLOBIN 27.5 pg 25.7-32.2 (BEAKER) (test code = 751) MEAN CORPUSCULAR HEMOGLOBIN CONC 30.9 GM/DL 32.3-36.5 L (BEAKER) (test code = 752) RED CELL DISTRIBUTION WIDTH 21.2 % 11.6-14.4 H (BEAKER) (test code = 412) PLATELET COUNT (BEAKER) (test 323 K/CU MM 150-450 code = 756) MEAN PLATELET VOLUME (BEAKER) 9.0 fL 9.4-12.4 L (test code = 754) NUCLEATED RED BLOOD CELLS 0 /100 WBC 0-0 (BEAKER) (test code = 413) NEUTROPHILS RELATIVE PERCENT 77 % (BEAKER) (test code = 429) LYMPHOCYTES RELATIVE PERCENT 13 % (BEAKER) (test code = 430) MONOCYTES RELATIVE PERCENT 6 % (BEAKER) (test code = 431) EOSINOPHILS RELATIVE PERCENT 3 % (BEAKER) (test code = 432) BASOPHILS RELATIVE PERCENT 0 % (BEAKER) (test code = 437) NEUTROPHILS ABSOLUTE COUNT 4.43 K/ L 1.78-5.38 (BEAKER) (test code = 670) LYMPHOCYTES ABSOLUTE COUNT 0.76 K/ L 1.32-3.57 L (BEAKER) (test code = 414) MONOCYTES ABSOLUTE COUNT (BEAKER) 0.34 K/ L 0.30-0.82 (test code = 415) EOSINOPHILS ABSOLUTE COUNT 0.14 K/ L 0.04-0.54 (BEAKER) (test code = 416) BASOPHILS ABSOLUTE COUNT (BEAKER) 0.02 K/ L 0.01-0.08 (test code = 417) IMMATURE GRANULOCYTES-RELATIVE 0 % 0-1 PERCENT (BEAKER) (test code = 2801) POCT-GLUCOSE [id number] 17:37:37 Test Item Value Reference Range Interpretation Comments POC-GLUCOSE METER 160 mg/dL 70-110 H : TESTED A T [facility] 6720 (BEAKER) (test code = [facility], 1538) [id number]: [employer]lasses Inspector/Techni bart ID = [id number] for Sammie Mercado POCT-GLUCOSE [id number] 12:40:04 Test Item Value Reference Range Interpretation Comments POC-GLUCOSE METER 126 mg/dL 70-110 H : TESTED A T [facility] 6720 (BEAKER) (test code = [facility], 1538) [id number]: [employer]lasses Inspector/Techni bart ID = [id number] for Sammie Mercado [id number] 08:29:45 Test Item Value Reference Range Interpretation Comments PHOSPHORUS (BEAKER) (test code = 4.0 mg/dL 2.3-4.7 604) [employer]lasses Inspector ID - [id number] 08:29:44 Test Item Value Reference Range Interpretation Comments MAGNESIUM (BEAKER) (test code = 2.1 mg/dL 1.6-2.6 627) [employer]lasses Inspector ID - DBPOCT-GLUCOSE [id number] 08:09:33 Test Item Value Reference Range Interpretation Comments POC-GLUCOSE METER 91 mg/dL 70-110 : TESTED A T [facility] 6720 (BEAKER) (test code = [facility], 1538) [id number]: [employer]lasses Inspector/Techni bart ID = [id number] for Sammie Lawson CBC W/PLT COUNT & AUTO [id number] 06:42:04 Test Item Value Reference Range Interpretation Comments WHITE BLOOD CELL COUNT (BEAKER) 6.4 K/ L 3.5-10.5 (test code = 775) RED BLOOD CELL COUNT (BEAKER) 3.67 M/ L 4.63-6.08 L (test code = 761) HEMOGLOBIN (BEAKER) (test code = 9.9 GM/DL 13.7-17.5 L 410) HEMATOCRIT (BEAKER) (test code = 31.4 % 40.1-51.0 L 411) MEAN CORPUSCULAR VOLUME (BEAKER) 85.6 fL 79.0-92.2 (test code = 753) MEAN CORPUSCULAR HEMOGLOBIN 27.0 pg 25.7-32.2 (BEAKER) (test code = 751) MEAN CORPUSCULAR HEMOGLOBIN CONC 31.5 GM/DL 32.3-36.5 L (BEAKER) (test code = 752) RED CELL DISTRIBUTION WIDTH 20.8 % 11.6-14.4 H (BEAKER) (test code = 412) PLATELET COUNT (BEAKER) (test 298 K/CU MM 150-450 code = 756) MEAN PLATELET VOLUME (BEAKER) 9.6 fL 9.4-12.4 (test code = 754) NUCLEATED RED BLOOD CELLS 0 /100 WBC 0-0 (BEAKER) (test code = 413) NEUTROPHILS RELATIVE PERCENT 80 % (BEAKER) (test code = 429) LYMPHOCYTES RELATIVE PERCENT 11 % (BEAKER) (test code = 430) MONOCYTES RELATIVE PERCENT 7 % (BEAKER) (test code = 431) EOSINOPHILS RELATIVE PERCENT 2 % (BEAKER) (test code = 432) BASOPHILS RELATIVE PERCENT 0 % (BEAKER) (test code = 437) NEUTROPHILS ABSOLUTE COUNT 5.13 K/ L 1.78-5.38 (BEAKER) (test code = 670) LYMPHOCYTES ABSOLUTE COUNT 0.69 K/ L 1.32-3.57 L (BEAKER) (test code = 414) MONOCYTES ABSOLUTE COUNT (BEAKER) 0.43 K/ L 0.30-0.82 (test code = 415) EOSINOPHILS ABSOLUTE COUNT 0.12 K/ L 0.04-0.54 (BEAKER) (test code = 416) BASOPHILS ABSOLUTE COUNT (BEAKER) 0.02 K/ L 0.01-0.08 (test code = 417) IMMATURE GRANULOCYTES-RELATIVE 1 % 0-1 PERCENT (BEAKER) (test code = 2801) PROTHROMBIN [id number] 06:23:57 Test Item Value Reference Range Interpretation Comments PROTIME (BEAKER) 23.1 seconds 11.9-14.2 H (test code = 759) INR (BEAKER) (test 2.08 See_Comment [Automat ed message] code = 370) The system Spot[employer] generated this result transmitted ref erence range: <=5.90. The reference range was not used to int erpret this result as normal/abnormal . RECOMMENDED COUMADIN/WARFARIN INR THERAPY RANGESSTANDARD DOSE: 2.0 - 3.0 Includes: PROPHYLAXIS forvenous thrombosis, systemic embolization; TREATMENT for venous thrombosis and/or pulmonary embolus.HIGH RISK: Target INR is 2.5-3.5 for patients with mechanical heart valves.CALCIUM, [id number] 05:53:20 Test Item Value Reference Range Interpretation Comments CALCIUM IONIZED (BEAKER) (test 1.13 mmol/L 1.12-1.27 code = 698) PH, BLOOD (BEAKER) (test code = 7.48 1810) RAD, CHEST, 1 VIEW, NON [id number] 05:22:00Reason for exam:->S/p Ct SurgeryShould this be performed at the bedside?->[facility] 1945 Sex: MFINAL REPORT RAD, CHEST, 1 VIEW, NON DEPT INDICATION: S/p Ct Surgery COMPARISON: Prior day's exam FINDINGS: Portable frontal view of the chest. IMPRESSION: Support Lines: None Lungs and pleura: Unchanged scattered bilateral parenchymal opacities. No new consolidation. No pneumothorax. Heart and mediastinum: Stable contours. Additional findings: None. Signed: Halley Osullivan Verified Date/Time: 09/17/2021 05:22:46 POCT-GLUCOSE [id number] 21:59:07 Test Item Value Reference Range Interpretation Comments POC-GLUCOSE METER 118 mg/dL 70-110 H : TESTED A T [facility] 6720 (BEAKER) (test code = [facility], 1538) [id number]: [employer]lasses Inspector/Techni bart ID = [id number] for Co Pam diop [id number] 17:58:41 Test Item Value Reference Range Interpretation Comments MAGNESIUM (BEAKER) (test code = 2.0 mg/dL 1.6-2.6 627) [employer] S[employer]lasses Inspector ID - KEARA WPOCT-GLUCOSE [id number] 17:29:30 Test Item Value Reference Range Interpretation Comments POC-GLUCOSE METER 123 mg/dL 70-110 H : TESTED A T [facility] 6720 (BEAKER) (test code = [facility], 1538) 16254: [employer]lasses Inspector/Techni bart ID = [id number] for Ba rrera, Sammie POCT-GLUCOSE [id number] 12:52:33 Test Item Value Reference Range Interpretation Comments POC-GLUCOSE METER 122 mg/dL 70-110 H : TESTED A T [facility] 6720 (BEAKER) (test code = [facility], 1538) [id number]: Cl[employer] S[employer]lasses Inspector/Techni bart ID = [id number] for Ba rrera, Sammie BASIC METABOLIC [id number] 08:28:13 Test Item Value Reference Range Interpretation Comments SODIUM (BEAKER) 134 meq/L 136-145 L (test code = 381) POTASSIUM (BEAKER) 4.5 meq/L 3.5-5.1 (test code = 379) CHLORIDE (BEAKER) 101 meq/L 98-107 (test code = 382) CO2 (BEAKER) (test 24 meq/L 22-29 code = 355) BLOOD UREA NITROGEN 9 mg/dL 7-21 (BEAKER) (test code = 354) CREATININE (BEAKER) 0.73 mg/dL 0.57-1.25 (test code = 358) GLUCOSE RANDOM 92 mg/dL 70-105 (BEAKER) (test code = 652) CALCIUM (BEAKER) 8.7 mg/dL 8.4-10.2 (test code = 697) EGFR (BEAKER) (test 104 mL/min/1.73 ESTIM ATED GFR IS code = 1092) sq m NOT ACCURATE CREATININE CLEARANCE IN PREDICTING GLOMERULAR FILTRATION RATE . ESTIMATED GFR I S NOT APPLICABLE FOR DIALYSIS PATIEN TS. Cl[employer] Sunglasses Inspector ID - KEARA WPOCT-GLUCOSE [id number] 07:58:49 Test Item Value Reference Range Interpretation Comments POC-GLUCOSE METER 82 mg/dL 70-110 : TESTED A T [facility] 6720 ([place]) (test code = [facility], 1538) 311[address]: Cl[employer] On Sunglasses Inspector/Techni bart ID = [id number] for Sammie Lawson RAD, CHEST, 1 VIEW, NON [id number] 07:01:00Reason for exam:->S/p Ct SurgeryShould this be performed at the bedside?->[facility] 1945 Sex: MFINAL REPORT RAD, CHEST, 1 VIEW, NON DEPT INDICATION: S/p Ct Surgery COMPARISON: Prior day's exam FINDINGS: Portable frontal view of the chest. IMPRESSION: Support Lines: Interval removal of right chest tube. Lungs and pleura: Unchanged diffuse interstitial thickening, representing singly or in combination, interstitial edema and/or pneumonitis. No significant pneumothorax. Heart and mediastinum: Stable contours. Additional findings: None. Signed: Griselda Cordero Verified Date/Time: 09/16/2021 07:01:13 [id number] 05:10:07 Test Item Value Reference Range Interpretation Comments PHOSPHORUS ([place]) (test code = 4.4 mg/dL 2.3-4.7 604) [employer] S[employer]lasses Inspector ID - KEARA [id number] 05:10:06 Test Item Value Reference Range Interpretation Comments MAGNESIUM (BEAKER) (test code = 2.0 mg/dL 1.6-2.6 627) Cl[employer] Sunglasses Inspector ID - KEARA [id number] 04:45:18 Test Item Value Reference Range Interpretation Comments PARTIAL THROMBOPLASTIN TIME 46.4 seconds 22.5-36.0 H (BEAKER) (test code = 760) PROTHROMBIN [id number] 04:44:13 Test Item Value Reference Range Interpretation Comments PROTIME (BEAKER) 18.3 seconds 11.9-14.2 H (test code = 759) INR (BEAKER) (test 1.54 See_Comment [Automat ed message] code = 370) The system Spotistic generated this result transmitted ref erence range: <=5.90. The reference range was not used to int erpret this result as normal/abnormal . RECOMMENDED COUMADIN/WARFARIN INR THERAPY RANGESSTANDARD DOSE: 2.0 - 3.0 Includes: PROPHYLAXIS forvenous thrombosis, systemic embolization; TREATMENT for venous thrombosis and/or pulmonary embolus.HIGH RISK: Target INR is 2.5-3.5 for patients with mechanical heart valves.CALCIUM, [id number] 04:42:58 Test Item Value Reference Range Interpretation Comments CALCIUM IONIZED (BEAKER) (test 1.12 mmol/L 1.12-1.27 code = 698) PH, BLOOD (BEAKER) (test code = 7.47 1810) CBC W/PLT COUNT & AUTO [id number] 04:35:30 Test Item Value Reference Range Interpretation Comments WHITE BLOOD CELL COUNT (BEAKER) 8.3 K/ L 3.5-10.5 (test code = 775) RED BLOOD CELL COUNT (BEAKER) 3.56 M/ L 4.63-6.08 L (test code = 761) HEMOGLOBIN (BEAKER) (test code = 9.7 GM/DL 13.7-17.5 L 410) HEMATOCRIT (BEAKER) (test code = 29.3 % 40.1-51.0 L 411) MEAN CORPUSCULAR VOLUME (BEAKER) 82.3 fL 79.0-92.2 (test code = 753) MEAN CORPUSCULAR HEMOGLOBIN 27.2 pg 25.7-32.2 (BEAKER) (test code = 751) MEAN CORPUSCULAR HEMOGLOBIN CONC 33.1 GM/DL 32.3-36.5 (BEAKER) (test code = 752) RED CELL DISTRIBUTION WIDTH 21.0 % 11.6-14.4 H (BEAKER) (test code = 412) PLATELET COUNT (BEAKER) (test 249 K/CU MM 150-450 code = 756) MEAN PLATELET VOLUME (BEAKER) 9.3 fL 9.4-12.4 L (test code = 754) NUCLEATED RED BLOOD CELLS 0 /100 WBC 0-0 (BEAKER) (test code = 413) NEUTROPHILS RELATIVE PERCENT 81 % (BEAKER) (test code = 429) LYMPHOCYTES RELATIVE PERCENT 11 % (BEAKER) (test code = 430) MONOCYTES RELATIVE PERCENT 6 % (BEAKER) (test code = 431) EOSINOPHILS RELATIVE PERCENT 2 % (BEAKER) (test code = 432) BASOPHILS RELATIVE PERCENT 0 % (BEAKER) (test code = 437) NEUTROPHILS ABSOLUTE COUNT 6.73 K/ L 1.78-5.38 H (BEAKER) (test code = 670) LYMPHOCYTES ABSOLUTE COUNT 0.89 K/ L 1.32-3.57 L (BEAKER) (test code = 414) MONOCYTES ABSOLUTE COUNT (BEAKER) 0.47 K/ L 0.30-0.82 (test code = 415) EOSINOPHILS ABSOLUTE COUNT 0.14 K/ L 0.04-0.54 (BEAKER) (test code = 416) BASOPHILS ABSOLUTE COUNT (BEAKER) 0.02 K/ L 0.01-0.08 (test code = 417) IMMATURE GRANULOCYTES-RELATIVE 1 % 0-1 PERCENT (BEAKER) (test code = 2801) POCT-GLUCOSE [id number] 20:58:14 Test Item Value Reference Range Interpretation Comments POC-GLUCOSE METER 104 mg/dL 70-110 : TESTED A T [facility] 6720 (BEAKER) (test code = [facility], 1538) [id number]: [employer] Inspector/Techni bart ID = [id number] for [employer] diop POCT-GLUCOSE [id number] 17:20:16 Test Item Value Reference Range Interpretation Comments POC-GLUCOSE METER 93 mg/dL 70-110 : TESTED A T [facility] 6720 (BEAKER) (test code = [facility] [employer] [facility], 1538) [id number]: [employer] Inspector/Techni bart ID = [id number] for VÍCTOR MURILLO POCT-GLUCOSE [id number] 12:15:47 Test Item Value Reference Range Interpretation Comments POC-GLUCOSE METER 122 mg/dL 70-110 H : TESTED A T [facility] 6720 (BEAKER) (test code = [facility], 1538) [id number]: [employer] Inspector/Techni bart ID = [id number] for VÍCTOR GRIMALDO POCT-GLUCOSE [id number] 07:26:33 Test Item Value Reference Range Interpretation Comments POC-GLUCOSE METER 95 mg/dL 70-110 : TESTED A T [facility] 6720 (BEAKER) (test code = [facility], 1538) 36206: [employer]lasses Inspector/Techni bart ID = [id number] for VÍCTOR MURILLO RAD, CHEST, 1 VIEW, NON [id number] 07:09:00while patient is intubated or has chest tubes.Reason for exam:->Status post CV SurgeryShould thisbe performed at the bedside?->Yes [facility] 1945 Sex: MFINAL REPORT CLINICAL HISTORY: Status post CV Surgery TECHNIQUE:1 view of the chest. COMPARISON: 09/14/2021 IMPRESSION: A right chest tube is again seen without definite evidence for pneumothorax. Mild bilateral lower lung opacities are unchanged. Blunting of the costophrenic angles again seen. The cardiomediastinal silhouette is magnified by technique. Signed: Shannon Cottoort Verified Date/Time: 09/15/2021 07:09:45 Reading Location: [facility] Radiology Reading Room HEPATIC FUNCTION [id number] 04:57:12 Test Item Value Reference Range Interpretation Comments TOTAL PROTEIN (BEAKER) (test code = 5.4 gm/dL 6.0-8.3 L 770) ALBUMIN (BEAKER) (test code = 1145) 2.9 g/dL 3.5-5.0 L BILIRUBIN TOTAL (BEAKER) (test code 1.1 mg/dL 0.2-1.2 = 377) BILIRUBIN DIRECT (BEAKER) (test 0.6 mg/dL 0.1-0.5 H code = 706) ALKALINE PHOSPHATASE (BEAKER) (test 170 U/L 40-150 H code = 346) AST (SGOT) (BEAKER) (test code = 26 U/L 5-34 353) ALT (SGPT) (BEAKER) (test code = 43 U/L 6-55 347) [employer] Inspector ID - KAYLEEN [id number] 04:57:11 Test Item Value Reference Range Interpretation Comments MAGNESIUM (BEAKER) (test code = 2.0 mg/dL 1.6-2.6 627) [employer] Inspector ID - PIMARIELA [id number] 04:57:11 Test Item Value Reference Range Interpretation Comments PHOSPHORUS (BEAKER) (test code = 3.8 mg/dL 2.3-4.7 604) [employer]lasses Inspector ID - PIMARIELA LBASIC METABOLIC [id number] 04:57:10 Test Item Value Reference Range Interpretation Comments SODIUM (BEAKER) 132 meq/L 136-145 L (test code = 381) POTASSIUM (BEAKER) 4.2 meq/L 3.5-5.1 (test code = 379) CHLORIDE (BEAKER) 100 meq/L 98-107 (test code = 382) CO2 (BEAKER) (test 24 meq/L 22-29 code = 355) BLOOD UREA NITROGEN 11 mg/dL 7-21 (BEAKER) (test code = 354) CREATININE (BEAKER) 0.71 mg/dL 0.57-1.25 (test code = 358) GLUCOSE RANDOM 97 mg/dL 70-105 (BEAKER) (test code = 652) CALCIUM (BEAKER) 8.6 mg/dL 8.4-10.2 (test code = 697) EGFR (BEAKER) (test 107 mL/min/1.73 ESTIM ATED GFR IS code = 1092) sq m NOT ACCURATE CREATININE CLEARANCE IN PREDICTING GLOMERULAR FILTRATION RATE . ESTIMATED GFR I S NOT APPLICABLE FOR DIALYSIS PATIEN TS. Clip On Sunglasses Inspector ID - PIAYA [id number] 04:49:45 Test Item Value Reference Range Interpretation Comments PARTIAL THROMBOPLASTIN TIME 44.9 seconds 22.5-36.0 H (BEAKER) (test code = 760) PROTHROMBIN [id number] 04:48:43 Test Item Value Reference Range Interpretation Comments PROTIME (BEAKER) 16.0 seconds 11.9-14.2 H (test code = 759) INR (BEAKER) (test 1.30 See_Comment [Automat ed message] code = 370) The system Spotistic generated this result transmitted ref erence range: <=5.90. The reference range was not used to int erpret this result as normal/abnormal . RECOMMENDED COUMADIN/WARFARIN INR THERAPY RANGESSTANDARD DOSE: 2.0 - 3.0 Includes: PROPHYLAXIS forvenous thrombosis, systemic embolization; TREATMENT for venous thrombosis and/or pulmonary embolus.HIGH RISK: Target INR is 2.5-3.5 for patients with mechanical heart valves.CBC W/PLT COUNT & AUTO DIFFERENTIAL 2021-09-15 04:46:45 Test Item Value Reference Range Interpretation Comments WHITE BLOOD CELL COUNT (BEAKER) 9.6 K/ L 3.5-10.5 (test code = 775) RED BLOOD CELL COUNT (BEAKER) 3.50 M/ L 4.63-6.08 L (test code = 761) HEMOGLOBIN (BEAKER) (test code = 9.5 GM/DL 13.7-17.5 L 410) HEMATOCRIT (BEAKER) (test code = 29.6 % 40.1-51.0 L 411) MEAN CORPUSCULAR VOLUME (BEAKER) 84.6 fL 79.0-92.2 (test code = 753) MEAN CORPUSCULAR HEMOGLOBIN 27.1 pg 25.7-32.2 (BEAKER) (test code = 751) MEAN CORPUSCULAR HEMOGLOBIN CONC 32.1 GM/DL 32.3-36.5 L (BEAKER) (test code = 752) RED CELL DISTRIBUTION WIDTH 21.1 % 11.6-14.4 H (BEAKER) (test code = 412) PLATELET COUNT (BEAKER) (test 230 K/CU MM 150-450 code = 756) MEAN PLATELET VOLUME (BEAKER) 10.1 fL 9.4-12.4 (test code = 754) NUCLEATED RED BLOOD CELLS 0 /100 WBC 0-0 (BEAKER) (test code = 413) NEUTROPHILS RELATIVE PERCENT 86 % (BEAKER) (test code = 429) LYMPHOCYTES RELATIVE PERCENT 7 % (BEAKER) (test code = 430) MONOCYTES RELATIVE PERCENT 5 % (BEAKER) (test code = 431) EOSINOPHILS RELATIVE PERCENT 1 % (BEAKER) (test code = 432) BASOPHILS RELATIVE PERCENT 0 % (BEAKER) (test code = 437) NEUTROPHILS ABSOLUTE COUNT 8.23 K/ L 1.78-5.38 H (BEAKER) (test code = 670) LYMPHOCYTES ABSOLUTE COUNT 0.66 K/ L 1.32-3.57 L (BEAKER) (test code = 414) MONOCYTES ABSOLUTE COUNT (BEAKER) 0.49 K/ L 0.30-0.82 (test code = 415) EOSINOPHILS ABSOLUTE COUNT 0.11 K/ L 0.04-0.54 (BEAKER) (test code = 416) BASOPHILS ABSOLUTE COUNT (BEAKER) 0.02 K/ L 0.01-0.08 (test code = 417) IMMATURE GRANULOCYTES-RELATIVE 1 % 0-1 PERCENT (BEAKER) (test code = 2801) CALCIUM, [id number] 04:42:09 Test Item Value Reference Range Interpretation Comments CALCIUM IONIZED (BEAKER) (test 1.11 mmol/L 1.12-1.27 L code = 698) PH, BLOOD (BEAKER) (test code = 7.48 1810) [id number] 21:30:13 Test Item Value Reference Range Interpretation Comments MAGNESIUM (BEAKER) (test code = 2.0 mg/dL 1.6-2.6 627) Clip On Sunglasses Inspector ID - PIAYA LPOCT-GLUCOSE [id number] 21:14:24 Test Item Value Reference Range Interpretation Comments POC-GLUCOSE METER 118 mg/dL 70-110 H : TESTED A T [facility] 6720 (BEAKER) (test code = [place], 1538) [id number]: Clip On Sunglasses Inspector/Techni bart ID = [id number] for MORELIA WEBB BASIC METABOLIC [id number] 09:32:00 Test Item Value Reference Range Interpretation Comments SODIUM (BEAKER) 131 meq/L 136-145 L (test code = 381) POTASSIUM (BEAKER) 4.5 meq/L 3.5-5.1 Specimen slightly (test code = 379) hemolyzed CHLORIDE (BEAKER) 101 meq/L 98-107 (test code = 382) CO2 (BEAKER) (test 24 meq/L 22-29 code = 355) BLOOD UREA NITROGEN 10 mg/dL 7-21 (BEAKER) (test code = 354) CREATININE (BEAKER) 0.71 mg/dL 0.57-1.25 Specimen slightly (test code = 358) hemolyzed GLUCOSE RANDOM 167 mg/dL 70-105 H (BEAKER) (test code = 652) CALCIUM (BEAKER) 8.6 mg/dL 8.4-10.2 (test code = 697) EGFR (BEAKER) (test 107 mL/min/1.73 ESTIM ATED GFR IS code = 1092) sq m NOT ACCURATE CREATININE CLEARANCE IN PREDICTING GLOMERULAR FILTRATION RATE . ESTIMATED GFR I S NOT APPLICABLE FOR DIALYSIS PATIEN TS. Clip On Sunglasses Inspector ID - PIAYA LCBC W/PLT COUNT & AUTO [id number] 09:06:06 Test Item Value Reference Range Interpretation Comments WHITE BLOOD CELL COUNT 9.2 K/ L 3.5-10.5 (BEAKER) (test code = 775) RED BLOOD CELL COUNT 3.72 M/ L 4.63-6.08 L (BEAKER) (test code = 761) HEMOGLOBIN (BEAKER) 10.2 GM/DL 13.7-17.5 L (test code = 410) HEMATOCRIT (BEAKER) 30.6 % 40.1-51.0 L (test code = 411) MEAN CORPUSCULAR 82.3 fL 79.0-92.2 VOLUME (BEAKER) (test code = 753) MEAN CORPUSCULAR 27.4 pg 25.7-32.2 HEMOGLOBIN (BEAKER) (test code = 751) MEAN CORPUSCULAR 33.3 GM/DL 32.3-36.5 HEMOGLOBIN CONC (BEAKER) (test code = 752) RED CELL DISTRIBUTION 20.5 % 11.6-14.4 H WIDTH (BEAKER) (test code = 412) PLATELET COUNT 182 K/CU MM 150-450 (BEAKER) (test code = 756) MEAN PLATELET VOLUME Unable to report due (BEAKER) (test code = to abn ormal Platelet 754) population distribution. NUCLEATED RED BLOOD 1 /100 WBC 0-0 H CELLS (BEAKER) (test code = 413) NEUTROPHILS RELATIVE 86 % PERCENT (BEAKER) (test code = 429) LYMPHOCYTES RELATIVE 7 % PERCENT (BEAKER) (test code = 430) MONOCYTES RELATIVE 4 % PERCENT (BEAKER) (test code = 431) EOSINOPHILS RELATIVE 2 % PERCENT (BEAKER) (test code = 432) BASOPHILS RELATIVE 0 % PERCENT (BEAKER) (test code = 437) NEUTROPHILS ABSOLUTE 7.95 K/ L 1.78-5.38 H COUNT (BEAKER) (test code = 670) LYMPHOCYTES ABSOLUTE 0.60 K/ L 1.32-3.57 L COUNT (BEAKER) (test code = 414) MONOCYTES ABSOLUTE 0.40 K/ L 0.30-0.82 COUNT (BEAKER) (test code = 415) EOSINOPHILS ABSOLUTE 0.14 K/ L 0.04-0.54 COUNT (BEAKER) (test code = 416) BASOPHILS ABSOLUTE 0.03 K/ L 0.01-0.08 COUNT (BEAKER) (test code = 417) IMMATURE 1 % 0-1 GRANULOCYTES-RELATIVE PERCENT (BEAKER) (test code = 2801) POCT-GLUCOSE [id number] 07:35:25 Test Item Value Reference Range Interpretation Comments POC-GLUCOSE METER 91 mg/dL 70-110 : TESTED A T [facility] 6720 (BEAKER) (test code = [facility], 1538) [id number]: Clip On Sunglasses Inspector/Techni bart ID = [id number] for CINDI DAVALSO BASIC METABOLIC [id number] 06:05:56 Test Item Value Reference Range Interpretation Comments SODIUM (BEAKER) 130 meq/L 136-145 L (test code = 381) POTASSIUM (BEAKER) 5.6 meq/L 3.5-5.1 H Specimen moderately (test code = 379) hemolyzed CHLORIDE (BEAKER) 102 meq/L 98-107 (test code = 382) CO2 (BEAKER) (test 20 meq/L 22-29 L code = 355) BLOOD UREA NITROGEN 10 mg/dL 7-21 (BEAKER) (test code = 354) CREATININE (BEAKER) 0.69 mg/dL 0.57-1.25 Specimen moderately (test code = 358) hemolyzed GLUCOSE RANDOM 84 mg/dL 70-105 (BEAKER) (test code = 652) CALCIUM (BEAKER) 8.5 mg/dL 8.4-10.2 (test code = 697) EGFR (BEAKER) (test 111 mL/min/1.73 ESTIM ATED GFR IS code = 1092) sq m NOT ACCURATE CREATININE CLEARANCE IN PREDICTING GLOMERULAR FILTRATION RATE . ESTIMATED GFR I S NOT APPLICABLE FOR DIALYSIS PATIEN TS. Clip On Sunglasses Inspector ID - PIAYA LHEPATIC FUNCTION [id number] 06:05:56 Test Item Value Reference Range Interpretation Comments TOTAL PROTEIN (BEAKER) 6.1 gm/dL 6.0-8.3 Speci men moderately (test code = 770) hemolyzed ALBUMIN (BEAKER) (test 3.1 g/dL 3.5-5.0 L Speci men moderately code = 1145) hemolyzed BILIRUBIN TOTAL 1.4 mg/dL 0.2-1.2 H Specimen mod erately (BEAKER) (test code = hemoly zed 377) BILIRUBIN DIRECT 0.5 mg/dL 0.1-0.5 Specimen mo derately (BEAKER) (test code = hemoly zed 706) ALKALINE PHOSPHATASE 200 U/L 40-150 H (BEAKER) (test code = 346) AST (SGOT) (BEAKER) 54 U/L 5-34 H Specimen moderately (test code = 353) hemolyzed ALT (SGPT) (BEAKER) 58 U/L 6-55 H Specimen moderately (test code = 347) hemolyzed Clip On Sunglasses Inspector ID - PIAYA [id number] 06:05:55 Test Item Value Reference Range Interpretation Comments MAGNESIUM (BEAKER) 2.3 mg/dL 1.6-2.6 Specimen moderately (test code = 627) hemolyzed Clip On Sunglasses Inspector ID - PIAYA [id number] 06:05:55 Test Item Value Reference Range Interpretation Comments PHOSPHORUS (BEAKER) 3.8 mg/dL 2.3-4.7 Specimen moderately (test code = 604) hemolyzed Clip On Sunglasses Inspector ID - KAYLEEN [id number] 05:42:58 Test Item Value Reference Range Interpretation Comments PARTIAL THROMBOPLASTIN TIME 39.1 seconds 22.5-36.0 H (BEAKER) (test code = 760) PROTHROMBIN [id number] 05:42:16 Test Item Value Reference Range Interpretation Comments PROTIME (BEAKER) 14.8 seconds 11.9-14.2 H (test code = 759) INR (BEAKER) (test 1.18 See_Comment [Automat ed message] code = 370) The system Spot[employer] generated this result transmitted ref erence range: <=5.90. The reference range was not used to int erpret this result as normal/abnormal . RECOMMENDED COUMADIN/WARFARIN INR THERAPY RANGESSTANDARD DOSE: 2.0 - 3.0 Includes: PROPHYLAXIS forvenous thrombosis, systemic embolization; TREATMENT for venous thrombosis and/or pulmonary embolus.HIGH RISK: Target INR is 2.5-3.5 for patients with mechanical heart valves.CALCIUM, [id number] 05:36:36 Test Item Value Reference Range Interpretation Comments CALCIUM IONIZED (BEAKER) (test 1.07 mmol/L 1.12-1.27 L code = 698) PH, BLOOD (BEAKER) (test code = 7.42 1810) RAD, CHEST, 1 VIEW, NON [id number] 02:39:00while patient is intubated or has chest tubes.Reason for exam:->Status post CV SurgeryShould thisbe performed at the bedside?->Yes [facility] [place] SIL[place] BACH : 1945 Sex: MFINAL REPORT RAD, CHEST, 1 VIEW, NON DEPT INDICATION: Status post CV Surgery COMPARISON: Prior day's exam FINDINGS: Portable frontal view of the chest. IMPRESSION: Support Lines: Stable right chest tube. Lungs and pleura: Unchanged bibasilar airspace and pleuralopacities. No pneumothorax. Heart and mediastinum: Stable contours. Additional findings: None. Signed: Halley Osullivan MDReport Verified Date/Time: 09/14/2021 02:39:11 POCT-GLUCOSE [id number] 22:16:46 Test Item Value Reference Range Interpretation Comments POC-GLUCOSE METER 116 mg/dL 70-110 H : TESTED A T [facility] 6720 (BEAKER) (test code = BRIJESHSHAKIRA [facility], 1538) [id number]: Clip On Sunglasses Inspector/Techni bart ID = [id number] for VISHAL GAINES BASIC METABOLIC [id number] 17:49:41 Test Item Value Reference Range Interpretation Comments SODIUM (BEAKER) 130 meq/L 136-145 L (test code = 381) POTASSIUM (BEAKER) 3.6 meq/L 3.5-5.1 (test code = 379) CHLORIDE (BEAKER) 99 meq/L 98-107 (test code = 382) CO2 (BEAKER) (test 25 meq/L 22-29 code = 355) BLOOD UREA NITROGEN 12 mg/dL 7-21 (BEAKER) (test code = 354) CREATININE (BEAKER) 0.71 mg/dL 0.57-1.25 (test code = 358) GLUCOSE RANDOM 161 mg/dL 70-105 H (BEAKER) (test code = 652) CALCIUM (BEAKER) 8.3 mg/dL 8.4-10.2 L (test code = 697) EGFR (BEAKER) (test 107 mL/min/1.73 ESTIM ATED GFR IS code = 1092) sq m NOT ACCURATE CREATININE CLEARANCE IN PREDICTING GLOMERULAR FILTRATION RATE . ESTIMATED GFR I S NOT APPLICABLE FOR DIALYSIS PATIEN TS. Clip On Sunglasses Inspector ID - JACQUELINE [id number] 17:49:41 Test Item Value Reference Range Interpretation Comments MAGNESIUM (BEAKER) (test code = 2.2 mg/dL 1.6-2.6 627) Clip On Sunglasses Inspector ID - JACQUELINE CPOCT-GLUCOSE [id number] 17:28:04 Test Item Value Reference Range Interpretation Comments POC-GLUCOSE METER 153 mg/dL 70-110 H : TESTED A T [facility] 6720 (BEAKER) (test code [facility], = 1538) [address]: Clip On Sunglasses Inspector/Techni bart ID = [id number] for Ritchie h, Silvana POCT-GLUCOSE [id number] 11:25:51 Test Item Value Reference Range Interpretation Comments POC-GLUCOSE METER 122 mg/dL 70-110 H : TESTED A T [facility] 6720 (BEAKER) (test code = DOM[facility], 1538) [address]: Clip On Sunglasses Inspector/Techni bart ID = [id number] for PH INABDOULAYE WILDER [id number] 11:03:29 Test Item Value Reference Range Interpretation Comments MAGNESIUM (BEAKER) (test code = 2.0 mg/dL 1.6-2.6 627) Clip On Sunglasses Inspector ID - JACQUELINE CBASIC METABOLIC [id number] 11:03:28 Test Item Value Reference Range Interpretation Comments SODIUM (BEAKER) 132 meq/L 136-145 L (test code = 381) POTASSIUM (BEAKER) 3.6 meq/L 3.5-5.1 (test code = 379) CHLORIDE (BEAKER) 102 meq/L 98-107 (test code = 382) CO2 (BEAKER) (test 25 meq/L 22-29 code = 355) BLOOD UREA NITROGEN 12 mg/dL 7-21 (BEAKER) (test code = 354) CREATININE (BEAKER) 0.72 mg/dL 0.57-1.25 (test code = 358) GLUCOSE RANDOM 149 mg/dL 70-105 H (BEAKER) (test code = 652) CALCIUM (BEAKER) 8.2 mg/dL 8.4-10.2 L (test code = 697) EGFR (BEAKER) (test 106 mL/min/1.73 ESTIM ATED GFR IS code = 1092) sq m NOT ACCURATE CREATININE CLEARANCE IN PREDICTING GLOMERULAR FILTRATION RATE . ESTIMATED GFR I S NOT APPLICABLE FOR DIALYSIS PATIEN TS. Clip On Sunglasses Inspector ID - JACQUELINE CRAD, CHEST, 1 VIEW, NON [id number] 08:40:00while patient is intubated or has chest tubes.Reason for exam:->Status post CV SurgeryShould thisbe performed at the bedside?->Yes [facility] [place] [facility] : 1945 Sex: MFINAL REPORT CLINICAL HISTORY: Status post CV Surgery TECHNIQUE:1 view of the chest. COMPARISON: 09/12/2021 IMPRESSION: The right jugular sheath has been removed. The right chest tube remains. No pneumothorax. Right lung opacity is unchanged. Blunting of the left costophrenic angle now noted. The cardiomediastinal silhouette is magnified by technique. Signed: Shannon Cotto MDReport Verified Date/Time: 09/13/2021 08:40:29 Reading Location: [facility] Radiology Reading Room POCT-GLUCOSE [id number] 08:01:34 Test Item Value Reference Range Interpretation Comments POC-GLUCOSE METER 89 mg/dL 70-110 : Notified RN/MD: TESTED ([place]) (test code = AT [facility] 67[address] [facility] 1538) [facility], [facility] 30: Clip On Sunglasses Inspector/Techni bart ID = [id number] for ABDOULAYE KATZ PROTHROMBIN [id number] 04:58:25 Test Item Value Reference Range Interpretation Comments PROTIME (ELINAAKER) 15.6 seconds 11.9-14.2 H (test code = 759) INR (BEAKER) (test 1.26 See_Comment [Automat ed message] code = 370) The system Spotistic generated this result transmitted ref erence range: <=5.90. The reference range was not used to int erpret this result as normal/abnormal . RECOMMENDED COUMADIN/WARFARIN INR THERAPY RANGESSTANDARD DOSE: 2.0 - 3.0 Includes: PROPHYLAXIS forvenous thrombosis, systemic embolization; TREATMENT for venous thrombosis and/or pulmonary embolus.HIGH RISK: Target INR is 2.5-3.5 for patients with mechanical heart valves.CBC W/PLT COUNT & AUTO DIFFERENTIAL 2021-09-13 03:26:57 Test Item Value Reference Range Interpretation Comments WHITE BLOOD CELL COUNT (BEAKER) 7.5 K/ L 3.5-10.5 (test code = 775) RED BLOOD CELL COUNT (BEAKER) 2.98 M/ L 4.63-6.08 L (test code = 761) HEMOGLOBIN (BEAKER) (test code = 7.9 GM/DL 13.7-17.5 L 410) HEMATOCRIT (BEAKER) (test code = 25.8 % 40.1-51.0 L 411) MEAN CORPUSCULAR VOLUME (BEAKER) 86.6 fL 79.0-92.2 (test code = 753) MEAN CORPUSCULAR HEMOGLOBIN 26.5 pg 25.7-32.2 (BEAKER) (test code = 751) MEAN CORPUSCULAR HEMOGLOBIN CONC 30.6 GM/DL 32.3-36.5 L (BEAKER) (test code = 752) RED CELL DISTRIBUTION WIDTH 21.5 % 11.6-14.4 H (BEAKER) (test code = 412) PLATELET COUNT (BEAKER) (test 182 K/CU MM 150-450 code = 756) MEAN PLATELET VOLUME (BEAKER) 10.1 fL 9.4-12.4 (test code = 754) NUCLEATED RED BLOOD CELLS 1 /100 WBC 0-0 H (BEAKER) (test code = 413) NEUTROPHILS RELATIVE PERCENT 83 % (BEAKER) (test code = 429) LYMPHOCYTES RELATIVE PERCENT 7 % (BEAKER) (test code = 430) MONOCYTES RELATIVE PERCENT 6 % (BEAKER) (test code = 431) EOSINOPHILS RELATIVE PERCENT 2 % (BEAKER) (test code = 432) BASOPHILS RELATIVE PERCENT 0 % (BEAKER) (test code = 437) NEUTROPHILS ABSOLUTE COUNT 6.19 K/ L 1.78-5.38 H (BEAKER) (test code = 670) LYMPHOCYTES ABSOLUTE COUNT 0.54 K/ L 1.32-3.57 L (BEAKER) (test code = 414) MONOCYTES ABSOLUTE COUNT (BEAKER) 0.47 K/ L 0.30-0.82 (test code = 415) EOSINOPHILS ABSOLUTE COUNT 0.18 K/ L 0.04-0.54 (BEAKER) (test code = 416) BASOPHILS ABSOLUTE COUNT (BEAKER) 0.03 K/ L 0.01-0.08 (test code = 417) IMMATURE GRANULOCYTES-RELATIVE 1 % 0-1 PERCENT (BEAKER) (test code = 2801) BASIC METABOLIC [id number] 02:43:59 Test Item Value Reference Range Interpretation Comments SODIUM (BEAKER) 132 meq/L 136-145 L (test code = 381) POTASSIUM (BEAKER) 4.7 meq/L 3.5-5.1 Specimen moderately (test code = 379) hemolyzed CHLORIDE (BEAKER) 102 meq/L 98-107 (test code = 382) CO2 (BEAKER) (test 22 meq/L 22-29 code = 355) BLOOD UREA NITROGEN 14 mg/dL 7-21 (BEAKER) (test code = 354) CREATININE (BEAKER) 0.78 mg/dL 0.57-1.25 Specimen moderately (test code = 358) hemolyzed GLUCOSE RANDOM 94 mg/dL 70-105 (BEAKER) (test code = 652) CALCIUM (BEAKER) 8.2 mg/dL 8.4-10.2 L (test code = 697) EGFR (BEAKER) (test 96 mL/min/1.73 ESTIMA LA GFR IS code = 1092) sq m NOT ACCURATE CREATININE CLEARANCE IN PREDICTING GLOMERULAR FILTRATION RATE . ESTIMATED GFR I S NOT APPLICABLE FOR DIALYSIS PATIEN TS. Patient is on LVAD, which may hemolyze the blood.Clip On Sunglasses Inspector ID - PIAYA LHEPATIC FUNCTION [id number] 02:43:59 Test Item Value Reference Range Interpretation Comments TOTAL PROTEIN (BEAKER) 5.5 gm/dL 6.0-8.3 L Speci men moderately (test code = 770) hemolyzed ALBUMIN (BEAKER) (test 2.8 g/dL 3.5-5.0 L Speci men moderately code = 1145) hemolyzed BILIRUBIN TOTAL 1.3 mg/dL 0.2-1.2 H Specimen mod erately (BEAKER) (test code = hemoly zed 377) BILIRUBIN DIRECT 0.4 mg/dL 0.1-0.5 Specimen mo derately (BEAKER) (test code = hemoly zed 706) ALKALINE PHOSPHATASE 155 U/L 40-150 H (BEAKER) (test code = 346) AST (SGOT) (BEAKER) 53 U/L 5-34 H Specimen moderately (test code = 353) hemolyzed ALT (SGPT) (BEAKER) 48 U/L 6-55 Specimen moderately (test code = 347) hemolyzed Clip On Sunglasses Inspector ID - KAYLEEN [id number] 02:43:58 Test Item Value Reference Range Interpretation Comments PHOSPHORUS (BEAKER) 3.1 mg/dL 2.3-4.7 Specimen moderately (test code = 604) hemolyzed Clip On Sunglasses Inspector ID - KAYLEEN [id number] 02:43:57 Test Item Value Reference Range Interpretation Comments MAGNESIUM (BEAKER) 2.0 mg/dL 1.6-2.6 Specimen moderately (test code = 627) hemolyzed Clip On Sunglasses Inspector ID - KAYLEEN LOperator ID - KAYLEEN [id number] 02:41:16 Test Item Value Reference Range Interpretation Comments PARTIAL THROMBOPLASTIN TIME 44.3 seconds 22.5-36.0 H (BEAKER) (test code = 760) CALCIUM, [id number] 02:05:55 Test Item Value Reference Range Interpretation Comments CALCIUM IONIZED (BEAKER) (test 1.10 mmol/L 1.12-1.27 L code = 698) PH, BLOOD (BEAKER) (test code = 7.43 1810) BLOOD GAS, [id number] 02:04:48 Test Item Value Reference Range Interpretation Comments PH VENOUS (BEAKER) (test code = 7.43 7.32-7.42 H 701) PCO2 VENOUS (BEAKER) (test code = 38 mm Hg 41-51 L 755) PO2 VENOUS (BEAKER) (test code = 40 mm Hg 25-40 702) O2 SATURATION VENOUS (BEAKER) 76.6 % 40.0-70.0 H (test code = 703) HCO3 VENOUS (BEAKER) (test code = 25 mmol/L 21-29 705) BASE EXCESS VENOUS (BEAKER) (test 0.9 mmol/L -2.0-3.0 code = 704) PATIENT TEMPERATURE (BEAKER) (test 37.0 code = 1818) FIO2 (BEAKER) (test code = 1819) 21.0 POCT-GLUCOSE [id number] 22:07:43 Test Item Value Reference Range Interpretation Comments POC-GLUCOSE METER 105 mg/dL 70-110 : TESTED A T [facility] 6720 ([place]) (test code = [facility], 1538) [address]: Clip On Sunglasses Inspector/Techni bart ID = [id number] for GO VISHAL LOZA POCT-GLUCOSE [id number] 16:18:37 Test Item Value Reference Range Interpretation Comments POC-GLUCOSE METER 118 mg/dL 70-110 H : Notified RN/MD: ([place]) (test code = TESTED AT [facility] 6720 1538) [facility], [address]: Clip On Sunglasses Inspector/Techni bart ID = [id number] for PH ABDOULAYE ROJAS TISSUE [id number] 14:59:34Surgical Pathology Report Case: [id number] Authorizing Provider: Colby Bui, Collected: 09/07/2021 12:07 PM Ordering Location: [facility] Received: 09/07/2021 03:40 PM PERIOPERATIVE SERVICES Pathologist: Ciro Diamond MD Specimen: Mitral Valve, MITRAL VALVE MITRAL VALVE, EXCISION:VALVULAR TISSUE WITH DEGENERATIVE CHANGES AND FOCAL CALCIFICATION Signing Pathologist Direct Phone Line: [phone] signed by Ciro Diamond MD on 09/12/2021 at 2:59 [id number] fibrillation, mitral valve insufficiencyMitral valveA. Received fresh labeled with the patient's name, medical record number and "mitral valve" is a 3.7 x 3.4 x 0.1 cm triangular portion of yellow-white, slightly thickened valvular tissue. There is a small amount of attached, thickened chordae tendineae. The specimen is serially sectioned and no gross lesion are identified. Automotive Warranty Administrator sections are submitted in A1.SASHA Graf, URSULA (ASCP)cmPerformed.[facility], Department of Pathology, [address] [place] [id number], [facility], Department of [facility], [address] [place] [id number], [facility], [facility], [address] [place] [id number], QEGAQPH, [id number] 13:07:17 Test Item Value Reference Range Interpretation Comments CALCIUM IONIZED (BEAKER) (test 1.12 mmol/L 1.12-1.27 code = 698) PH, BLOOD (BEAKER) (test code = 7.49 1810) [id number] 13:05:22 Test Item Value Reference Range Interpretation Comments POTASSIUM (BEAKER) 4.1 meq/L 3.5-5.1 Specimen slightly (test code = 379) hemolyzed [employer] Inspector ID - MARZENA [id number] 13:05:21 Test Item Value Reference Range Interpretation Comments MAGNESIUM (BEAKER) 2.2 mg/dL 1.6-2.6 Specimen slightly (test code = 627) hemolyzed [employer] Inspector ID - MARZENA [id number] 13:05:21 Test Item Value Reference Range Interpretation Comments PHOSPHORUS (BEAKER) 2.6 mg/dL 2.3-4.7 Specimen slightly (test code = 604) hemolyzed [employer] Inspector ID - MARZENA MPOCT-GLUCOSE [id number] 11:29:26 Test Item Value Reference Range Interpretation Comments POC-GLUCOSE METER 126 mg/dL 70-110 H : Notified RN/MD: (BRAXTON) (test code = TESTED AT [place] [id number]) [facility], [id number]: [employer]unglasses Inspector/Techni bart ID = [id number] for PH INISEE, ABDOULAYE POCT-GLUCOSE [id number] 08:03:15 Test Item Value Reference Range Interpretation Comments POC-GLUCOSE METER 98 mg/dL 70-110 : Notified RN/MD: TESTED (BRAXTON) (test code = AT [address] 153) [facility], [address]: [employer] Sunglasses Inspector/Techni bart ID = [id number] for PHIN ISEE, ABDOULAYE RAD, CHEST, 1 VIEW, NON [id number] 06:05:00while patient is intubated or has chest tubes.Reason for exam:->Status post CV SurgeryShould thisbe performed at the bedside?->Yes [facility] [place] [place] : 1945 Sex: MFINAL REPORT RAD, CHEST, 1 VIEW, NON DEPT INDICATION: Status post CV Surgery COMPARISON: Prior day's exam FINDINGS: Portable frontal view of the chest. IMPRESSION: Support Lines: Pulmonary arterial catheter has been removed. Lungs and pleura: Unchanged right basilar airspace and pleural opacities. Left lung is clear. No pneumothorax. Heart and mediastinum: Stable contours. Additional findings: None. Signed: Halley Osullivan MDReport Verified Date/Time: 206:05:44 HEPATIC FUNCTION [id number] 04:15:05 Test Item Value Reference Range Interpretation Comments TOTAL PROTEIN (BEAKER) (test code = 5.1 gm/dL 6.0-8.3 L 770) ALBUMIN (BEAKER) (test code = 1145) 3.0 g/dL 3.5-5.0 L BILIRUBIN TOTAL (BEAKER) (test code 1.5 mg/dL 0.2-1.2 H = 377) BILIRUBIN DIRECT (BEAKER) (test 1.1 mg/dL 0.1-0.5 H code = 706) ALKALINE PHOSPHATASE (BEAKER) (test 136 U/L 40-150 code = 346) AST (SGOT) (BEAKER) (test code = 42 U/L 5-34 H 353) ALT (SGPT) (BEAKER) (test code = 46 U/L 6-55 347) [employer] S[employer]lasses Inspector ID - MARZENA [id number] 04:15:04 Test Item Value Reference Range Interpretation Comments MAGNESIUM (BEAKER) (test code = 2.4 mg/dL 1.6-2.6 627) Cl[employer] Sunglasses Inspector ID - MARZENA [id number] 04:15:04 Test Item Value Reference Range Interpretation Comments PHOSPHORUS (BEAKER) (test code = 3.3 mg/dL 2.3-4.7 604) [employer] Sunglasses Inspector ID - MARZENA MBASIC METABOLIC [id number] 04:15:03 Test Item Value Reference Range Interpretation Comments SODIUM (BEAKER) 133 meq/L 136-145 L (test code = 381) POTASSIUM (BEAKER) 4.1 meq/L 3.5-5.1 (test code = 379) CHLORIDE (BEAKER) 105 meq/L 98-107 (test code = 382) CO2 (BEAKER) (test 23 meq/L 22-29 code = 355) BLOOD UREA NITROGEN 13 mg/dL 7-21 (BEAKER) (test code = 354) CREATININE (BEAKER) 0.69 mg/dL 0.57-1.25 (test code = 358) GLUCOSE RANDOM 92 mg/dL 70-105 (BEAKER) (test code = 652) CALCIUM (BEAKER) 8.4 mg/dL 8.4-10.2 (test code = 697) EGFR (BEAKER) (test 111 mL/min/1.73 ESTIM ATED GFR IS code = 1092) sq m NOT ACCURATE CREATININE CLEARANCE IN PREDICTING GLOMERULAR FILTRATION RATE . ESTIMATED GFR I S NOT APPLICABLE FOR DIALYSIS PATIEN TS. Cl[employer] Sunglasses Inspector ID - MARZENA [id number] 04:11:05 Test Item Value Reference Range Interpretation Comments PROTIME (BEAKER) (test 15.8 seconds 11.9-14.2 H code = 759) INR (BEAKER) (test 1.28 See_Comment [Automat ed code = 370) message] The sy stem which generated this result transmitted reference range : <=5.90. The reference range was not used to interpret this result as normal/abnormal . PARTIAL THROMBOPLASTIN 47.6 seconds 22.5-36.0 H TIME (BEAKER) (test code = 760) RECOMMENDED COUMADIN/WARFARIN INR THERAPY RANGESSTANDARD DOSE: 2.0 - 3.0 Includes: PROPHYLAXIS forvenous thrombosis, systemic embolization; TREATMENT for venous thrombosis and/or pulmonary embolus.HIGH RISK: Target INR is 2.5-3.5 for patients with mechanical heart valves.CBC W/PLT COUNT & AUTO DIFFERENTIAL 2021-09-12 04:06:36 Test Item Value Reference Range Interpretation Comments WHITE BLOOD CELL COUNT 6.0 K/ L 3.5-10.5 (BEAKER) (test code = 775) RED BLOOD CELL COUNT 2.97 M/ L 4.63-6.08 L (BEAKER) (test code = 761) HEMOGLOBIN (BEAKER) 7.9 GM/DL 13.7-17.5 L (test code = 410) HEMATOCRIT (BEAKER) 26.2 % 40.1-51.0 L (test code = 411) MEAN CORPUSCULAR 88.2 fL 79.0-92.2 Discordant MCV VOLUME (BEAKER) (test result s compared to code = 753) previous result s; clinical correl ation required. MEAN CORPUSCULAR 26.6 pg 25.7-32.2 HEMOGLOBIN (BEAKER) (test code = 751) MEAN CORPUSCULAR 30.2 GM/DL 32.3-36.5 L HEMOGLOBIN CONC (BEAKER) (test code = 752) RED CELL DISTRIBUTION 21.7 % 11.6-14.4 H WIDTH (BEAKER) (test code = 412) PLATELET COUNT 162 K/CU MM 150-450 (BEAKER) (test code = 756) MEAN PLATELET VOLUME 10.0 fL 9.4-12.4 (BEAKER) (test code = 754) NUCLEATED RED BLOOD 1 /100 WBC 0-0 H CELLS (BEAKER) (test code = 413) NEUTROPHILS RELATIVE 79 % PERCENT (BEAKER) (test code = 429) LYMPHOCYTES RELATIVE 10 % PERCENT (BEAKER) (test code = 430) MONOCYTES RELATIVE 8 % PERCENT (BEAKER) (test code = 431) EOSINOPHILS RELATIVE 3 % PERCENT (BEAKER) (test code = 432) BASOPHILS RELATIVE 0 % PERCENT (BEAKER) (test code = 437) NEUTROPHILS ABSOLUTE 4.79 K/ L 1.78-5.38 COUNT (BEAKER) (test code = 670) LYMPHOCYTES ABSOLUTE 0.57 K/ L 1.32-3.57 L COUNT (BEAKER) (test code = 414) MONOCYTES ABSOLUTE 0.45 K/ L 0.30-0.82 COUNT (BEAKER) (test code = 415) EOSINOPHILS ABSOLUTE 0.16 K/ L 0.04-0.54 COUNT (BEAKER) (test code = 416) BASOPHILS ABSOLUTE 0.02 K/ L 0.01-0.08 COUNT (BEAKER) (test code = 417) IMMATURE 1 % 0-1 GRANULOCYTES-RELATIVE PERCENT (BEAKER) (test code = 2801) BLOOD GAS, [id number] 04:00:34 Test Item Value Reference Range Interpretation Comments PH ARTERIAL (BEAKER) (test code = 7.47 7.35-7.45 H 383) PCO2 ARTERIAL (BEAKER) (test code 33 mm Hg 35-45 L = 384) PO2 ARTERIAL (BEAKER) (test code = 144 mm Hg 80-90 H 385) O2 SATURATION ARTERIAL (BEAKER) 99.0 % 96.0-97.0 H (test code = 386) HCO3 ARTERIAL (BEAKER) (test code 23 mmol/L 21-29 = 388) BASE EXCESS ARTERIAL (BEAKER) 0.2 mmol/L -2.0-3.0 (test code = 387) PATIENT TEMPERATURE (BEAKER) (test 37.5 code = 1818) FIO2 (BEAKER) (test code = 1819) 21.0 LACTIC ACID, [id number] 03:57:33 Test Item Value Reference Range Interpretation Comments LACTATE BLOOD ARTERIAL (2) 0.8 mmol/L 0.5-2.2 (BEAKER) (test code = 2874) [employer] S[employer]lasses Inspector ID - MARZENA MCALCIUM, [id number] 03:56:36 Test Item Value Reference Range Interpretation Comments CALCIUM IONIZED (BEAKER) (test 1.13 mmol/L 1.12-1.27 code = 698) PH, BLOOD (BEAKER) (test code = 7.48 1810) [id number] 21:01:53 Test Item Value Reference Range Interpretation Comments MAGNESIUM (BEAKER) (test code = 2.2 mg/dL 1.6-2.6 627) [employer] S[employer]lasses Inspector ID - DBBASIC METABOLIC [id number] 21:01:52 Test Item Value Reference Range Interpretation Comments SODIUM (BEAKER) 131 meq/L 136-145 L (test code = 381) POTASSIUM (BEAKER) 4.0 meq/L 3.5-5.1 (test code = 379) CHLORIDE (BEAKER) 104 meq/L 98-107 (test code = 382) CO2 (BEAKER) (test 20 meq/L 22-29 L code = 355) BLOOD UREA NITROGEN 16 mg/dL 7-21 (BEAKER) (test code = 354) CREATININE (BEAKER) 0.69 mg/dL 0.57-1.25 (test code = 358) GLUCOSE RANDOM 124 mg/dL 70-105 H (BEAKER) (test code = 652) CALCIUM (BEAKER) 8.4 mg/dL 8.4-10.2 (test code = 697) EGFR (BEAKER) (test 111 mL/min/1.73 ESTIM ATED GFR IS code = 1092) sq m NOT ACCURATE CREATININE CLEARANCE IN PREDICTING GLOMERULAR FILTRATION RATE . ESTIMATED GFR I S NOT APPLICABLE FOR DIALYSIS PATIEN TS. [employer] S[employer]lasses Inspector ID - DBHEMOGLOBIN AND [id number] 20:37:40 Test Item Value Reference Range Interpretation Comments HEMOGLOBIN (BEAKER) (test code = 8.3 GM/DL 13.7-17.5 L 410) HEMATOCRIT (BEAKER) (test code = 26.6 % 40.1-51.0 L 411) Cl[employer] Sunglasses Inspector ID - 6000POCT-GLUCOSE [id number] 20:36:55 Test Item Value Reference Range Interpretation Comments POC-GLUCOSE METER 110 mg/dL 70-110 : TESTED A T [facility] 6720 (BEAKER) (test code = [facility], 1538) [id number]: [employer] S[employer]lasses Inspector/Techni bart ID = [id number] for MA BEVERLEY CHAUDHRY POCT-GLUCOSE [id number] 16:19:31 Test Item Value Reference Range Interpretation Comments POC-GLUCOSE METER 127 mg/dL 70-110 H : TESTED A T [facility] 6720 (BEAKER) (test code = [facility], 1538) [id number]: [employer] Sunglasses Inspector/Techni bart ID = [id number] for PH ABDOULAYE ROJAS [id number] 12:45:58 Test Item Value Reference Range Interpretation Comments MAGNESIUM (BEAKER) (test code = 2.4 mg/dL 1.6-2.6 627) [employer] S[employer]lasses Inspector ID - [id number] 12:45:58 Test Item Value Reference Range Interpretation Comments PHOSPHORUS (BEAKER) (test code = 2.7 mg/dL 2.3-4.7 604) [employer] S[employer]lasses Inspector ID - RMBASIC METABOLIC [id number] 12:45:57 Test Item Value Reference Range Interpretation Comments SODIUM (BEAKER) 133 meq/L 136-145 L (test code = 381) POTASSIUM (BEAKER) 3.7 meq/L 3.5-5.1 (test code = 379) CHLORIDE (BEAKER) 102 meq/L 98-107 (test code = 382) CO2 (BEAKER) (test 28 meq/L 22-29 code = 355) BLOOD UREA NITROGEN 16 mg/dL 7-21 (BEAKER) (test code = 354) CREATININE (BEAKER) 0.69 mg/dL 0.57-1.25 (test code = 358) GLUCOSE RANDOM 116 mg/dL 70-105 H (BEAKER) (test code = 652) CALCIUM (BEAKER) 8.3 mg/dL 8.4-10.2 L (test code = 697) EGFR (BEAKER) (test 111 mL/min/1.73 ESTIM ATED GFR IS code = 1092) sq m NOT ACCURATE CREATININE CLEARANCE IN PREDICTING GLOMERULAR FILTRATION RATE . ESTIMATED GFR I S NOT APPLICABLE FOR DIALYSIS PATIEN TS. [employer] Sunglasses Inspector ID - RMCALCIUM, [id number] 12:25:40 Test Item Value Reference Range Interpretation Comments CALCIUM IONIZED (BEAKER) (test 1.09 mmol/L 1.12-1.27 L code = 698) PH, BLOOD (BEAKER) (test code = 7.46 1810) OXYGEN SATURATION, [id number] 12:25:23 Test Item Value Reference Range Interpretation Comments O2 SATURATION (MEASURED) (BEAKER) 53.2 % (test code = 1455) POCT-GLUCOSE [id number] 11:12:10 Test Item Value Reference Range Interpretation Comments POC-GLUCOSE METER 87 mg/dL 70-110 : [facility] (test code = [place], 1538) [id number]: [employer] Sunglasses Inspector/Techni bart ID = [id number] for PABLITO BAILEY POCT-GLUCOSE [id number] 08:30:46 Test Item Value Reference Range Interpretation Comments POC-GLUCOSE METER 120 mg/dL 70-110 H : TESTED A T [facility] 6720 (BEAKER) (test code = [facility] [place], 1538) [id number]: [employer] S[employer]lasses Inspector/Techni bart ID = [id number] for PH ABDOULAYE ROJAS OXYGEN SATURATION, [id number] 06:27:31 Test Item Value Reference Range Interpretation Comments O2 SATURATION (MEASURED) (BEAKER) 54.6 % (test code = 1455) HEPATIC FUNCTION [id number] 04:48:25 Test Item Value Reference Range Interpretation Comments TOTAL PROTEIN (BEAKER) 5.3 gm/dL 6.0-8.3 L Speci men moderately (test code = 770) hemolyzed ALBUMIN (BEAKER) (test 2.7 g/dL 3.5-5.0 L Speci men moderately code = 1145) hemolyzed BILIRUBIN TOTAL 1.5 mg/dL 0.2-1.2 H Specimen mod erately (BEAKER) (test code = hemoly zed 377) BILIRUBIN DIRECT 0.5 mg/dL 0.1-0.5 Specimen mo derately (BEAKER) (test code = hemoly zed 706) ALKALINE PHOSPHATASE 99 U/L 40-150 (BEAKER) (test code = 346) AST (SGOT) (BEAKER) 48 U/L 5-34 H Specimen moderately (test code = 353) hemolyzed ALT (SGPT) (BEAKER) 38 U/L 6-55 Specimen moderately (test code = 347) hemolyzed [employer]lasses Inspector ID - KEARA [id number] 04:48:24 Test Item Value Reference Range Interpretation Comments PHOSPHORUS (BEAKER) 2.8 mg/dL 2.3-4.7 Specimen moderately (test code = 604) hemolyzed [employer] Sunglasses Inspector ID - KEARA WBASIC METABOLIC [id number] 04:48:24 Test Item Value Reference Range Interpretation Comments SODIUM (BEAKER) 133 meq/L 136-145 L (test code = 381) POTASSIUM (BEAKER) 4.3 meq/L 3.5-5.1 Specimen moderately (test code = 379) hemolyzed CHLORIDE (BEAKER) 104 meq/L 98-107 (test code = 382) CO2 (BEAKER) (test 22 meq/L 22-29 code = 355) BLOOD UREA NITROGEN 14 mg/dL 7-21 (BEAKER) (test code = 354) CREATININE (BEAKER) 0.68 mg/dL 0.57-1.25 Specimen moderately (test code = 358) hemolyzed GLUCOSE RANDOM 96 mg/dL 70-105 (BEAKER) (test code = 652) CALCIUM (BEAKER) 8.0 mg/dL 8.4-10.2 L (test code = 697) EGFR (BEAKER) (test 113 mL/min/1.73 ESTIM ATED GFR IS code = 1092) sq m NOT ACCURATE CREATININE CLEARANCE IN PREDICTING GLOMERULAR FILTRATION RATE . ESTIMATED GFR I S NOT APPLICABLE FOR DIALYSIS PATIEN TS. [employer] S[employer]lasses Inspector ID Patrick SARAH [id number] 04:48:23 Test Item Value Reference Range Interpretation Comments MAGNESIUM (BEAKER) 2.1 mg/dL 1.6-2.6 Specimen moderately (test code = 627) hemolyzed [employer]lasses Inspector ID Patrick SARAH [id number] 04:45:21 Test Item Value Reference Range Interpretation Comments PROTIME (BEAKER) (test 16.6 seconds 11.9-14.2 H code = 759) INR (BEAKER) (test 1.36 See_Comment [Automat ed code = 370) message] The sy stem which generated this result transmitted reference range : <=5.90. The reference range was not used to interpret this result as normal/abnormal . PARTIAL THROMBOPLASTIN 49.3 seconds 22.5-36.0 H TIME (BEAKER) (test code = 760) RECOMMENDED COUMADIN/WARFARIN INR THERAPY RANGESSTANDARD DOSE: 2.0 - 3.0 Includes: PROPHYLAXIS forvenous thrombosis, systemic embolization; TREATMENT for venous thrombosis and/or pulmonary embolus.HIGH RISK: Target INR is 2.5-3.5 for patients with mechanical heart valves.CBC W/PLT COUNT & AUTO DIFFERENTIAL 2021-09-11 04:41:38 Test Item Value Reference Range Interpretation Comments WHITE BLOOD CELL COUNT (BEAKER) 7.9 K/ L 3.5-10.5 (test code = 775) RED BLOOD CELL COUNT (BEAKER) 2.99 M/ L 4.63-6.08 L (test code = 761) HEMOGLOBIN (BEAKER) (test code = 8.1 GM/DL 13.7-17.5 L 410) HEMATOCRIT (BEAKER) (test code = 24.3 % 40.1-51.0 L 411) MEAN CORPUSCULAR VOLUME (BEAKER) 81.3 fL 79.0-92.2 (test code = 753) MEAN CORPUSCULAR HEMOGLOBIN 27.1 pg 25.7-32.2 (BEAKER) (test code = 751) MEAN CORPUSCULAR HEMOGLOBIN CONC 33.3 GM/DL 32.3-36.5 (BEAKER) (test code = 752) RED CELL DISTRIBUTION WIDTH 21.2 % 11.6-14.4 H (BEAKER) (test code = 412) PLATELET COUNT (BEAKER) (test 161 K/CU MM 150-450 code = 756) MEAN PLATELET VOLUME (BEAKER) 10.2 fL 9.4-12.4 (test code = 754) NUCLEATED RED BLOOD CELLS 0 /100 WBC 0-0 (BEAKER) (test code = 413) NEUTROPHILS RELATIVE PERCENT 84 % (BEAKER) (test code = 429) LYMPHOCYTES RELATIVE PERCENT 8 % (BEAKER) (test code = 430) MONOCYTES RELATIVE PERCENT 6 % (BEAKER) (test code = 431) EOSINOPHILS RELATIVE PERCENT 1 % (BEAKER) (test code = 432) BASOPHILS RELATIVE PERCENT 0 % (BEAKER) (test code = 437) NEUTROPHILS ABSOLUTE COUNT 6.60 K/ L 1.78-5.38 H (BEAKER) (test code = 670) LYMPHOCYTES ABSOLUTE COUNT 0.60 K/ L 1.32-3.57 L (BEAKER) (test code = 414) MONOCYTES ABSOLUTE COUNT (BEAKER) 0.50 K/ L 0.30-0.82 (test code = 415) EOSINOPHILS ABSOLUTE COUNT 0.10 K/ L 0.04-0.54 (BEAKER) (test code = 416) BASOPHILS ABSOLUTE COUNT (BEAKER) 0.00 K/ L 0.01-0.08 L (test code = 417) IMMATURE GRANULOCYTES-RELATIVE 1 % 0-1 PERCENT (BEAKER) (test code = 2801) LACTIC ACID, [id number] 04:32:15 Test Item Value Reference Range Interpretation Comments LACTATE BLOOD 1.0 mmol/L 0.5-2.2 Specimen moder ately ARTERIAL (2) (BEAKER) hemoly zed (test code = 2874) [employer]lasses Inspector ID - KEARA PEREZALCIUM, [id number] 04:12:20 Test Item Value Reference Range Interpretation Comments CALCIUM IONIZED (BEAKER) (test 1.08 mmol/L 1.12-1.27 L code = 698) PH, BLOOD (BEAKER) (test code = 7.51 1810) BLOOD GAS, [id number] 04:12:14 Test Item Value Reference Range Interpretation Comments PH ARTERIAL (BEAKER) (test code = 7.51 7.35-7.45 H 383) PCO2 ARTERIAL (BEAKER) (test code 32 mm Hg 35-45 L = 384) PO2 ARTERIAL (BEAKER) (test code = 82 mm Hg 80-90 385) O2 SATURATION ARTERIAL (BEAKER) 97.1 % 96.0-97.0 H (test code = 386) HCO3 ARTERIAL (BEAKER) (test code 25 mmol/L 21-29 = 388) BASE EXCESS ARTERIAL (BEAKER) 2.1 mmol/L -2.0-3.0 (test code = 387) PATIENT TEMPERATURE (BEAKER) (test 37.0 code = 1818) FIO2 (BEAKER) (test code = 1819) 21.0 OXYGEN SATURATION, [id number] 04:12:09 Test Item Value Reference Range Interpretation Comments O2 SATURATION (MEASURED) (BEAKER) 57.4 % (test code = 1455) RAD, CHEST, 1 VIEW, NON [id number] 03:17:00while patient is intubated or has chest tubes.Reason for exam:->Status post CV SurgeryShould thisbe performed at the bedside?->Yes [facility] : 1945 Sex: MFINAL REPORT RAD, CHEST, 1 VIEW, NON DEPT INDICATION: Status post CV Surgery COMPARISON: Prior day's exam FINDINGS: Portable frontal view of the chest. IMPRESSION: Support Lines: Stable. Lungs and pleura: Unchanged airspace and pleural opacities. No pneumothorax.Heart and mediastinum: Stable contours. Stable surgical changes.Additional findings: None. Signed: Celia Nassar Verified Date/Time: 09/11/2021 03:17:44 BASIC METABOLIC PANEL 2021-09-10 22:33:36 Test Item Value Reference Range Interpretation Comments SODIUM (BEAKER) 132 meq/L 136-145 L (test code = 381) POTASSIUM (BEAKER) 4.0 meq/L 3.5-5.1 Specimen slightly (test code = 379) hemolyzed CHLORIDE (BEAKER) 103 meq/L 98-107 (test code = 382) CO2 (BEAKER) (test 20 meq/L 22-29 L code = 355) BLOOD UREA NITROGEN 16 mg/dL 7-21 (BEAKER) (test code = 354) CREATININE (BEAKER) 0.65 mg/dL 0.57-1.25 Specimen slightly (test code = 358) hemolyzed GLUCOSE RANDOM 111 mg/dL 70-105 H (BEAKER) (test code = 652) CALCIUM (BEAKER) 8.5 mg/dL 8.4-10.2 (test code = 697) EGFR (BEAKER) (test 119 mL/min/1.73 ESTIM ATED GFR IS code = 1092) sq m NOT ACCURATE CREATININE CLEARANCE IN PREDICTING GLOMERULAR FILTRATION RATE . ESTIMATED GFR I S NOT APPLICABLE FOR DIALYSIS PATIEN TS. [employer] S[employer]lasses Inspector ID - [id number] 22:33:35 Test Item Value Reference Range Interpretation Comments MAGNESIUM (BEAKER) 2.5 mg/dL 1.6-2.6 Specimen slightly (test code = 627) hemolyzed [employer]lasses Inspector ID - DBPOCT-GLUCOSE [id number] 22:18:05 Test Item Value Reference Range Interpretation Comments POC-GLUCOSE METER 113 mg/dL 70-110 H : TESTED A T [facility] 6720 (BEAKER) (test code = [facility] [place], 1538) [address]: [employer]lasses Inspector/Techni bart ID = [id number] for ERASMO PORRAS HEMOGLOBIN AND [id number] 22:16:52 Test Item Value Reference Range Interpretation Comments HEMOGLOBIN (BEAKER) (test code = 8.3 GM/DL 13.7-17.5 L 410) HEMATOCRIT (BEAKER) (test code = 25.3 % 40.1-51.0 L 411) Cl[employer] On Sunglasses Inspector ID - [id number]-GLUCOSE [id number] 17:01:08 Test Item Value Reference Range Interpretation Comments POC-GLUCOSE METER 116 mg/dL 70-110 H : TESTED A T [facility] 6720 (BEAKER) [facility] 1538[facility] [id number]: Cl[employer] Sunglasses Inspector/Techni bart ID = [id number] for SERAFIN ATWOOD OXYGEN SATURATION, [id number] 15:40:36 Test Item Value Reference Range Interpretation Comments O2 SATURATION (MEASURED) (BEAKER) 79.1 % (test code = 1455) [id number] 13:24:14 Test Item Value Reference Range Interpretation Comments MAGNESIUM (BEAKER) (test code = 2.2 mg/dL 1.6-2.6 627) Cl[employer] Sunglasses Inspector ID - PIAYA LBASIC METABOLIC [id number] 13:24:13 Test Item Value Reference Range Interpretation Comments SODIUM (BEAKER) 134 meq/L 136-145 L (test code = 381) POTASSIUM (BEAKER) 3.6 meq/L 3.5-5.1 (test code = 379) CHLORIDE (BEAKER) 103 meq/L 98-107 (test code = 382) CO2 (BEAKER) (test 24 meq/L 22-29 code = 355) BLOOD UREA NITROGEN 15 mg/dL 7-21 (BEAKER) (test code = 354) CREATININE (BEAKER) 0.74 mg/dL 0.57-1.25 (test code = 358) GLUCOSE RANDOM 146 mg/dL 70-105 H (BEAKER) (test code = 652) CALCIUM (BEAKER) 8.1 mg/dL 8.4-10.2 L (test code = 697) EGFR (BEAKER) (test 102 mL/min/1.73 ESTIM ATED GFR IS code = 1092) sq m NOT ACCURATE CREATININE CLEARANCE IN PREDICTING GLOMERULAR FILTRATION RATE . ESTIMATED GFR I S NOT APPLICABLE FOR DIALYSIS PATIEN TS. [employer] Sunglasses Inspector ID - ZACMARIELA LCALCIUM, [id number] 13:05:15 Test Item Value Reference Range Interpretation Comments CALCIUM IONIZED (BEAKER) (test 1.06 mmol/L 1.12-1.27 L code = 698) PH, BLOOD (BEAKER) (test code = 7.52 1810) POCT-GLUCOSE [id number] 11:27:00 Test Item Value Reference Range Interpretation Comments POC-GLUCOSE METER 138 mg/dL 70-110 H : TESTED A T [facility] 6720 (BEAKER) (test code = [facility] [employer] [facility], 1538) [id number]: Cl[employer] Sunglasses Inspector/Techni bart ID = [id number] for SERAFIN ATWOOD POCT-GLUCOSE [id number] 07:54:29 Test Item Value Reference Range Interpretation Comments POC-GLUCOSE METER 133 mg/dL 70-110 H : TESTED A T [facility] 6720 (BEAKER) (test code = [facility] [employer] [facility], 1538) [address]: Cl[employer] Sunglasses Inspector/Techni bart ID = [id number] for SERAFIN ATWOOD HEPATIC FUNCTION [id number] 05:39:39 Test Item Value Reference Range Interpretation Comments TOTAL PROTEIN (BEAKER) (test code = 4.9 gm/dL 6.0-8.3 L 770) ALBUMIN (BEAKER) (test code = 1145) 2.9 g/dL 3.5-5.0 L BILIRUBIN TOTAL (BEAKER) (test code 1.6 mg/dL 0.2-1.2 H = 377) BILIRUBIN DIRECT (BEAKER) (test 0.9 mg/dL 0.1-0.5 H code = 706) ALKALINE PHOSPHATASE (BEAKER) (test 72 U/L 40-150 code = 346) AST (SGOT) (BEAKER) (test code = 36 U/L 5-34 H 353) ALT (SGPT) (BEAKER) (test code = 44 U/L 6-55 347) Cl[employer] Sunglasses Inspector ID - KAYLEEN [id number] 05:39:38 Test Item Value Reference Range Interpretation Comments PHOSPHORUS (BEAKER) (test code = 2.9 mg/dL 2.3-4.7 604) Cl[employer] Sunglasses Inspector ID - KAYLEEN LBASIC METABOLIC [id number] 05:39:37 Test Item Value Reference Range Interpretation Comments SODIUM (BEAKER) 134 meq/L 136-145 L (test code = 381) POTASSIUM (BEAKER) 3.6 meq/L 3.5-5.1 (test code = 379) CHLORIDE (BEAKER) 104 meq/L 98-107 (test code = 382) CO2 (BEAKER) (test 23 meq/L 22-29 code = 355) BLOOD UREA NITROGEN 14 mg/dL 7-21 (BEAKER) (test code = 354) CREATININE (BEAKER) 0.67 mg/dL 0.57-1.25 (test code = 358) GLUCOSE RANDOM 116 mg/dL 70-105 H (BEAKER) (test code = 652) CALCIUM (BEAKER) 8.2 mg/dL 8.4-10.2 L (test code = 697) EGFR (BEAKER) (test 115 mL/min/1.73 ESTIM ATED GFR IS code = 1092) sq m NOT ACCURATE CREATININE CLEARANCE IN PREDICTING GLOMERULAR FILTRATION RATE . ESTIMATED GFR I S NOT APPLICABLE FOR DIALYSIS PATIEN TS. [employer] Sunglasses Inspector ID - PIMARIELA [id number] 05:39:37 Test Item Value Reference Range Interpretation Comments MAGNESIUM (BEAKER) (test code = 2.2 mg/dL 1.6-2.6 627) [employer] Inspector ID - KAYLEEN LLACTIC ACID, [id number] 05:27:27 Test Item Value Reference Range Interpretation Comments LACTATE BLOOD 0.9 mmol/L 0.5-2.2 Specimen sligh tly ARTERIAL (2) (BEAKER) hemoly zed (test code = 2874) [employer] Inspector ID - ZACMARIELA [id number] 05:14:24 Test Item Value Reference Range Interpretation Comments PROTIME (BEAKER) (test 18.4 seconds 11.9-14.2 H code = 759) INR (BEAKER) (test 1.56 See_Comment [Automat ed code = 370) message] The sy stem which generated this result transmitted reference range : <=5.90. The reference range was not used to interpret this result as normal/abnormal . PARTIAL THROMBOPLASTIN 56.4 seconds 22.5-36.0 H TIME (BEAKER) (test code = 760) RECOMMENDED COUMADIN/WARFARIN INR THERAPY RANGESSTANDARD DOSE: 2.0 - 3.0 Includes: PROPHYLAXIS forvenous thrombosis, systemic embolization; TREATMENT for venous thrombosis and/or pulmonary embolus.HIGH RISK: Target INR is 2.5-3.5 for patients with mechanical heart valves.OXYGEN SATURATION, [id number] 05:07:37 Test Item Value Reference Range Interpretation Comments O2 SATURATION (MEASURED) (BEAKER) 77.5 % (test code = 1455) CBC W/PLT COUNT & AUTO [id number] 05:07:13 Test Item Value Reference Range Interpretation Comments WHITE BLOOD CELL COUNT (BEAKER) 10.1 K/ L 3.5-10.5 (test code = 775) RED BLOOD CELL COUNT (BEAKER) 3.02 M/ L 4.63-6.08 L (test code = 761) HEMOGLOBIN (BEAKER) (test code = 8.0 GM/DL 13.7-17.5 L 410) HEMATOCRIT (BEAKER) (test code = 25.3 % 40.1-51.0 L 411) MEAN CORPUSCULAR VOLUME (BEAKER) 83.8 fL 79.0-92.2 (test code = 753) MEAN CORPUSCULAR HEMOGLOBIN 26.5 pg 25.7-32.2 (BEAKER) (test code = 751) MEAN CORPUSCULAR HEMOGLOBIN CONC 31.6 GM/DL 32.3-36.5 L (BEAKER) (test code = 752) RED CELL DISTRIBUTION WIDTH 21.0 % 11.6-14.4 H (BEAKER) (test code = 412) PLATELET COUNT (BEAKER) (test 149 K/CU MM 150-450 L code = 756) MEAN PLATELET VOLUME (BEAKER) 10.2 fL 9.4-12.4 (test code = 754) NUCLEATED RED BLOOD CELLS 0 /100 WBC 0-0 (BEAKER) (test code = 413) NEUTROPHILS RELATIVE PERCENT 88 % (BEAKER) (test code = 429) LYMPHOCYTES RELATIVE PERCENT 5 % (BEAKER) (test code = 430) MONOCYTES RELATIVE PERCENT 6 % (BEAKER) (test code = 431) EOSINOPHILS RELATIVE PERCENT 1 % (BEAKER) (test code = 432) BASOPHILS RELATIVE PERCENT 0 % (BEAKER) (test code = 437) NEUTROPHILS ABSOLUTE COUNT 8.85 K/ L 1.78-5.38 H (BEAKER) (test code = 670) LYMPHOCYTES ABSOLUTE COUNT 0.49 K/ L 1.32-3.57 L (BEAKER) (test code = 414) MONOCYTES ABSOLUTE COUNT (BEAKER) 0.55 K/ L 0.30-0.82 (test code = 415) EOSINOPHILS ABSOLUTE COUNT 0.08 K/ L 0.04-0.54 (BEAKER) (test code = 416) BASOPHILS ABSOLUTE COUNT (BEAKER) 0.01 K/ L 0.01-0.08 (test code = 417) IMMATURE GRANULOCYTES-RELATIVE 1 % 0-1 PERCENT (BEAKER) (test code = 2801) RAD, CHEST, 1 VIEW, NON [id number] 05:07:00while patient is intubated or has chest tubes.Reason for exam:->Status post CV SurgeryShould thisbe performed at the bedside?->Yes [facility] 1945 Sex: MFINAL REPORT RAD, CHEST, 1 VIEW, NON DEPT INDICATION: Status post CV Surgery COMPARISON: Prior day's exam FINDINGS: Portable frontal view of the chest. IMPRESSION: Support Lines: Stable. Lungs and pleura: Unchanged bibasilar airspace and pleural opacities. No pneumothorax. Heart and mediastinum: Stable contours. Additional findings: None. Signed: Halley Osullivan MD Report Verified Date/Time: 09/10/2021 05:07:16 CALCIUM, [id number] 05:03:15 Test Item Value Reference Range Interpretation Comments CALCIUM IONIZED (BEAKER) (test 1.08 mmol/L 1.12-1.27 L code = 698) PH, BLOOD (BEAKER) (test code = 7.51 1810) BLOOD GAS, [id number] 05:00:52 Test Item Value Reference Range Interpretation Comments PH ARTERIAL (BEAKER) (test code = 7.50 7.35-7.45 H 383) PCO2 ARTERIAL (BEAKER) (test code 33 mm Hg 35-45 L = 384) PO2 ARTERIAL (BEAKER) (test code = 165 mm Hg 80-90 H 385) O2 SATURATION ARTERIAL (BEAKER) 99.2 % 96.0-97.0 H (test code = 386) HCO3 ARTERIAL (BEAKER) (test code 25 mmol/L 21-29 = 388) BASE EXCESS ARTERIAL (BEAKER) 2.4 mmol/L -2.0-3.0 (test code = 387) PATIENT TEMPERATURE (BEAKER) (test 37.7 code = 1818) FIO2 (BEAKER) (test code = 1819) 21.0 POCT-GLUCOSE [id number] 22:18:19 Test Item Value Reference Range Interpretation Comments POC-GLUCOSE METER 157 mg/dL 70-110 H : TESTED A T [facility] 6720 (BEAKER) (test code = [place], 1538) [address]: [employer]lasses Inspector/Techni bart ID = [id number] for VISHAL GAINES CALCIUM, [id number] 20:12:13 Test Item Value Reference Range Interpretation Comments CALCIUM IONIZED (BEAKER) (test 1.11 mmol/L 1.12-1.27 L code = 698) PH, BLOOD (BEAKER) (test code = 7.47 1810) OXYGEN SATURATION, [id number] 20:12:01 Test Item Value Reference Range Interpretation Comments O2 SATURATION (MEASURED) (BEAKER) 78.0 % (test code = 1455) LACTIC ACID, [id number] 20:12:01 Test Item Value Reference Range Interpretation Comments LACTATE BLOOD 1.4 mmol/L 0.5-2.2 Specimen sligh tly ARTERIAL (2) (BEAKER) hemoly zed (test code = 2874) [employer] S[employer]lasses Inspector ID - [id number] 20:09:04 Test Item Value Reference Range Interpretation Comments PHOSPHORUS (BEAKER) 2.7 mg/dL 2.3-4.7 Specimen slightly (test code = 604) hemolyzed [employer]lasses Inspector ID - DBBASIC METABOLIC [id number] 20:09:04 Test Item Value Reference Range Interpretation Comments SODIUM (BEAKER) 132 meq/L 136-145 L (test code = 381) POTASSIUM (BEAKER) 4.1 meq/L 3.5-5.1 Specimen slightly (test code = 379) hemolyzed CHLORIDE (BEAKER) 105 meq/L 98-107 (test code = 382) CO2 (BEAKER) (test 20 meq/L 22-29 L code = 355) BLOOD UREA NITROGEN 18 mg/dL 7-21 (BEAKER) (test code = 354) CREATININE (BEAKER) 0.75 mg/dL 0.57-1.25 Specimen slightly (test code = 358) hemolyzed GLUCOSE RANDOM 164 mg/dL 70-105 H (BEAKER) (test code = 652) CALCIUM (BEAKER) 8.5 mg/dL 8.4-10.2 (test code = 697) EGFR (BEAKER) (test 101 mL/min/1.73 ESTIM ATED GFR IS code = 1092) sq m NOT ACCURATE CREATININE CLEARANCE IN PREDICTING GLOMERULAR FILTRATION RATE . ESTIMATED GFR I S NOT APPLICABLE FOR DIALYSIS PATIEN TS. [employer] S[employer]lasses Inspector ID - [id number] 20:09:03 Test Item Value Reference Range Interpretation Comments MAGNESIUM (BEAKER) 2.1 mg/dL 1.6-2.6 Specimen slightly (test code = 627) hemolyzed [employer] S[employer]lasses Inspector ID - DBHEMOGLOBIN AND [id number] 19:51:19 Test Item Value Reference Range Interpretation Comments HEMOGLOBIN (BEAKER) (test code = 8.3 GM/DL 13.7-17.5 L 410) HEMATOCRIT (BEAKER) (test code = 25.6 % 40.1-51.0 L 411) [employer] S[employer]lasses Inspector ID - [id number] SATURATION, [id number] 09:51:00 Test Item Value Reference Range Interpretation Comments O2 SATURATION (MEASURED) (BEAKER) 67.0 % (test code = 1455) RAD, CHEST, 1 VIEW, NON [id number] 06:36:00while patient is intubated or has chest tubes.Reason for exam:->Status post CV SurgeryShould thisbe performed at the bedside?->Yes [facility] 1945 Sex: MFINAL REPORT RAD, CHEST, 1 VIEW, NON DEPT INDICATION: Status post CV Surgery COMPARISON: Prior day's exam FINDINGS: Portable frontal view of the chest. IMPRESSION: Support Lines: Right chest tube. [place] tip overlies the pulmonary outflow tract. Lungs and pleura: Retrocardiac opacity representing singly or in combination airspace disease, atelectasis and/or effusion. Bibasilar interstitial thickening is unchanged. No significant pneumothorax. Heart and mediastinum: Stable contours. Stable surgical changes. Additional findings: None. Signed: Burt Cordero Verified Date/Time: 09/09/2021 06:36:02 OXYGEN SATURATION, [id number] 05:12:23 Test Item Value Reference Range Interpretation Comments O2 SATURATION (MEASURED) (BEAKER) 98.5 % (test code = 1455) [id number] 03:20:36 Test Item Value Reference Range Interpretation Comments PHOSPHORUS (BEAKER) (test code = 2.6 mg/dL 2.3-4.7 604) [employer]lasses Inspector ID - MARZENA [id number] 03:20:35 Test Item Value Reference Range Interpretation Comments MAGNESIUM (BEAKER) (test code = 2.1 mg/dL 1.6-2.6 627) Cl[employer] Sunglasses Inspector ID - MARZENA MCOMPREHENSIVE METABOLIC [id number] 03:20:34 Test Item Value Reference Range Interpretation Comments TOTAL PROTEIN 5.0 gm/dL 6.0-8.3 L (BEAKER) (test code = 770) ALBUMIN (BEAKER) 3.1 g/dL 3.5-5.0 L (test code = 1145) ALKALINE PHOSPHATASE 54 U/L 40-150 (BEAKER) (test code = 346) BILIRUBIN TOTAL 1.8 mg/dL 0.2-1.2 H (BEAKER) (test code = 377) SODIUM (BEAKER) (test 134 meq/L 136-145 L code = 381) POTASSIUM (BEAKER) 4.2 meq/L 3.5-5.1 (test code = 379) CHLORIDE (BEAKER) 107 meq/L 98-107 (test code = 382) CO2 (BEAKER) (test 21 meq/L 22-29 L code = 355) BLOOD UREA NITROGEN 13 mg/dL 7-21 (BEAKER) (test code = 354) CREATININE (BEAKER) 0.68 mg/dL 0.57-1.25 (test code = 358) GLUCOSE RANDOM 139 mg/dL 70-105 H (BEAKER) (test code = 652) CALCIUM (BEAKER) 8.4 mg/dL 8.4-10.2 (test code = 697) AST (SGOT) (BEAKER) 50 U/L 5-34 H (test code = 353) ALT (SGPT) (BEAKER) 50 U/L 6-55 (test code = 347) EGFR (BEAKER) (test 113 ESTIMATE D GFR IS code = 1092) mL/min/1.73 sq NOT ACCURA TE m CREATININE CLEARANCE IN PREDICTING GLOMERULAR FILTRATION RATE . ESTIMATED GFR I S NOT APPLICABLE FOR DIALYSIS PATIEN TS. [employer] S[employer]lasses Inspector ID - MARZENA MPOCT-GLUCOSE [id number] 03:04:55 Test Item Value Reference Range Interpretation Comments POC-GLUCOSE METER 143 mg/dL 70-110 H : TESTED A T [facility] 6720 (BEAKER) (test code = [place], 1538) [address]: [employer]lasses Inspector/Techni bart ID = [id number] for Cathleen Acuña BLOOD GAS, [id number] 02:57:44 Test Item Value Reference Range Interpretation Comments PH ARTERIAL (BEAKER) (test code = 7.46 7.35-7.45 H 383) PCO2 ARTERIAL (BEAKER) (test code 32 mm Hg 35-45 L = 384) PO2 ARTERIAL (BEAKER) (test code 149 mm Hg 80-90 H = 385) O2 SATURATION ARTERIAL (BEAKER) 99.0 % 96.0-97.0 H (test code = 386) HCO3 ARTERIAL (BEAKER) (test code 22 mmol/L 21-29 = 388) BASE EXCESS ARTERIAL (BEAKER) -0.9 mmol/L -2.0-3.0 (test code = 387) PATIENT TEMPERATURE (BEAKER) 37.0 (test code = 1818) FIO2 (BEAKER) (test code = 1819) 28.0 CBC (HEMOGRAM ONLY)2021-09-09 02:57:29 Test Item Value Reference Range Interpretation Comments WHITE BLOOD CELL COUNT (BEAKER) 14.5 K/ L 3.5-10.5 H (test code = 775) RED BLOOD CELL COUNT (BEAKER) 3.05 M/ L 4.63-6.08 L (test code = 761) HEMOGLOBIN (BEAKER) (test code = 8.4 GM/DL 13.7-17.5 L 410) HEMATOCRIT (BEAKER) (test code = 26.5 % 40.1-51.0 L 411) MEAN CORPUSCULAR VOLUME (BEAKER) 86.9 fL 79.0-92.2 (test code = 753) MEAN CORPUSCULAR HEMOGLOBIN 27.5 pg 25.7-32.2 (BEAKER) (test code = 751) MEAN CORPUSCULAR HEMOGLOBIN CONC 31.7 GM/DL 32.3-36.5 L (BEAKER) (test code = 752) RED CELL DISTRIBUTION WIDTH 20.4 % 11.6-14.4 H (BEAKER) (test code = 412) PLATELET COUNT (BEAKER) (test 150 K/CU MM 150-450 code = 756) MEAN PLATELET VOLUME (BEAKER) 10.7 fL 9.4-12.4 (test code = 754) NUCLEATED RED BLOOD CELLS 0 /100 WBC 0-0 (BEAKER) (test code = 413) CALCIUM, [id number] 02:57:28 Test Item Value Reference Range Interpretation Comments CALCIUM IONIZED (BEAKER) (test 1.12 mmol/L 1.12-1.27 code = 698) PH, BLOOD (BEAKER) (test code = 7.46 1810) POCT-GLUCOSE [id number] 21:16:02 Test Item Value Reference Range Interpretation Comments POC-GLUCOSE METER 169 mg/dL 70-110 H : TESTED A T [facility] 6720 (BEAKER) (test code = [place] [facility], 1538) [address]: [employer]lasses Inspector/Techni bart ID = [id number] for Am rodrigo, Walker POCT-GLUCOSE [id number] 21:12:37 Test Item Value Reference Range Interpretation Comments POC-GLUCOSE METER 140 mg/dL 70-110 H : TESTED A T [facility] 6720 (BEAKER) (test code [facility], = 1538) [address]: [employer]lasses Inspector/Techni bart ID = [id number] for SEAN REED (contract)NICHELLE [id number] 15:32:47 Test Item Value Reference Range Interpretation Comments POTASSIUM (BEAKER) 4.3 meq/L 3.5-5.1 Specimen slightly (test code = 379) hemolyzed [employer] Inspector ID - KAYLEEN [id number] 15:32:46 Test Item Value Reference Range Interpretation Comments MAGNESIUM (BEAKER) 2.0 mg/dL 1.6-2.6 Specimen slightly (test code = 627) hemolyzed [employer] Inspector ID - KAYLEEN LCBC W/PLT COUNT & AUTO [id number] 15:19:56 Test Item Value Reference Range Interpretation Comments WHITE BLOOD CELL COUNT (BEAKER) 11.1 K/ L 3.5-10.5 H (test code = 775) RED BLOOD CELL COUNT (BEAKER) 3.06 M/ L 4.63-6.08 L (test code = 761) HEMOGLOBIN (BEAKER) (test code = 8.1 GM/DL 13.7-17.5 L 410) HEMATOCRIT (BEAKER) (test code = 27.0 % 40.1-51.0 L 411) MEAN CORPUSCULAR VOLUME (BEAKER) 88.2 fL 79.0-92.2 (test code = 753) MEAN CORPUSCULAR HEMOGLOBIN 26.5 pg 25.7-32.2 (BEAKER) (test code = 751) MEAN CORPUSCULAR HEMOGLOBIN CONC 30.0 GM/DL 32.3-36.5 L (BEAKER) (test code = 752) RED CELL DISTRIBUTION WIDTH 20.1 % 11.6-14.4 H (BEAKER) (test code = 412) PLATELET COUNT (BEAKER) (test 136 K/CU MM 150-450 L code = 756) MEAN PLATELET VOLUME (BEAKER) 10.4 fL 9.4-12.4 (test code = 754) NUCLEATED RED BLOOD CELLS 0 /100 WBC 0-0 (BEAKER) (test code = 413) NEUTROPHILS RELATIVE PERCENT 87 % (BEAKER) (test code = 429) LYMPHOCYTES RELATIVE PERCENT 6 % (BEAKER) (test code = 430) MONOCYTES RELATIVE PERCENT 6 % (BEAKER) (test code = 431) EOSINOPHILS RELATIVE PERCENT 0 % (BEAKER) (test code = 432) BASOPHILS RELATIVE PERCENT 0 % (BEAKER) (test code = 437) NEUTROPHILS ABSOLUTE COUNT 9.60 K/ L 1.78-5.38 H (BEAKER) (test code = 670) LYMPHOCYTES ABSOLUTE COUNT 0.71 K/ L 1.32-3.57 L (BEAKER) (test code = 414) MONOCYTES ABSOLUTE COUNT (BEAKER) 0.61 K/ L 0.30-0.82 (test code = 415) EOSINOPHILS ABSOLUTE COUNT 0.02 K/ L 0.04-0.54 L (BEAKER) (test code = 416) BASOPHILS ABSOLUTE COUNT (BEAKER) 0.03 K/ L 0.01-0.08 (test code = 417) IMMATURE GRANULOCYTES-RELATIVE 1 % 0-1 PERCENT (BEAKER) (test code = 2801) CALCIUM, [id number] 15:12:46 Test Item Value Reference Range Interpretation Comments CALCIUM IONIZED (BEAKER) (test 1.11 mmol/L 1.12-1.27 L code = 698) PH, BLOOD (BEAKER) (test code = 7.48 1810) POCT-GLUCOSE [id number] 14:49:24 Test Item Value Reference Range Interpretation Comments POC-GLUCOSE METER 102 mg/dL 70-110 : TESTED A T [facility] 6720 (BEAKER) (test code [facility], = 1538) [address]: [employer]lasses Inspector/Techni bart ID = [id number] for SEANAMA CHANDLERA (contract), NICHELLE OSLAVA POCT-GLUCOSE [id number] 10:32:59 Test Item Value Reference Range Interpretation Comments POC-GLUCOSE METER 104 mg/dL 70-110 : TESTED A T [facility] 6720 (BEAKER) (test code [facility], = 1538) [address]: [employer]lasses Inspector/Techni bart ID = [id number] for SEAN NOVA (contract), NICHELLE OSLAVA HEMOGLOBIN AND [id number] 10:32:38 Test Item Value Reference Range Interpretation Comments HEMOGLOBIN (BEAKER) (test code = 7.7 GM/DL 13.7-17.5 L 410) HEMATOCRIT (BEAKER) (test code = 25.3 % 40.1-51.0 L 411) [employer]lasses Inspector ID - [id number]-GLUCOSE [id number] 09:26:31 Test Item Value Reference Range Interpretation Comments POC-GLUCOSE METER 96 mg/dL 70-110 : TESTED A T [facility] 6720 (BEAKER) (test code = [facility], 1538) [address]: [employer]lasses Inspector/Techni bart ID = [id number] for SEANAMA CHANDLERA (contract), NICHELLE OSLAVA LACTIC ACID, [id number] 09:18:52 Test Item Value Reference Range Interpretation Comments LACTATE BLOOD ARTERIAL (2) 1.7 mmol/L 0.5-2.2 (BEAKER) (test code = 2874) [employer] S[employer]lasses Inspector ID - DBOXYGEN SATURATION, [id number] 09:17:35 Test Item Value Reference Range Interpretation Comments O2 SATURATION (MEASURED) (BEAKER) 60.3 % (test code = 1455) POCT-GLUCOSE [id number] 09:09:11 Test Item Value Reference Range Interpretation Comments POC-GLUCOSE METER 101 mg/dL 70-110 : TESTED A T [facility] 6720 (BEAKER) (test code [facility], = 1538) [address]: [employer]lasses Inspector/Techni bart ID = [id number] for SEANAMA CHANDLERA (contract), NICHELLE OSLAVA BLOOD GAS, [id number] 09:08:49 Test Item Value Reference Range Interpretation Comments PH ARTERIAL (BEAKER) (test code = 7.44 7.35-7.45 383) PCO2 ARTERIAL (BEAKER) (test code 35 mm Hg 35-45 = 384) PO2 ARTERIAL (BEAKER) (test code 146 mm Hg 80-90 H = 385) O2 SATURATION ARTERIAL (BEAKER) 98.9 % 96.0-97.0 H (test code = 386) HCO3 ARTERIAL (BEAKER) (test code 23 mmol/L 21-29 = 388) BASE EXCESS ARTERIAL (BEAKER) -0.7 mmol/L -2.0-3.0 (test code = 387) PATIENT TEMPERATURE (BEAKER) 37.5 (test code = 1818) FIO2 (BEAKER) (test code = 1819) 28.0 BLOOD [id number] 08:00:53 Test Item Value Reference Range Interpretation Comments CULTURE (BEAKER) (test No growth in 5 days code = 1095) BLOOD [id number] 08:00:52 Test Item Value Reference Range Interpretation Comments CULTURE (BEAKER) (test No growth in 5 days code = 1095) MISCELLANEOUS LAB [id number] 07:57:26 Test Item Value Reference Range Interpretation Comments SCAN RESULT (test code = See scanned report [id number]) See scanned reportLACTIC ACID, [id number] 06:32:27 Test Item Value Reference Range Interpretation Comments LACTATE BLOOD ARTERIAL (2) 3.0 mmol/L 0.5-2.2 H (BEAKER) (test code = 2874) [employer]lasses Inspector ID - PIAYA [id number] 06:31:19 Test Item Value Reference Range Interpretation Comments ACTIVATED CLOTTING TIME 142 sec : 74 -137 seconds, (BEAKER) (test code = Baseli ne: TESTED AT 441) [address], [address]: [employer] S[employer]lasses Inspector/Techni bart ID = [id number] for Sa enz, Angela [id number] 06:31:17 Test Item Value Reference Range Interpretation Comments ACTIVATED CLOTTING TIME 785 sec : 74 -137 seconds, (BEAKER) (test code = Baseli ne: TESTED AT 441) [facility] [address] [place] [address], [address]: [employer]lasses Inspector/Techni bart ID = [id number] for Sa enz, Angela [id number] 06:31:17 Test Item Value Reference Range Interpretation Comments ACTIVATED CLOTTING TIME 964 sec : 74 -137 seconds, (BEAKER) (test code = Baseli ne: TESTED AT 441) [address], [address]: [employer]lasses Inspector/Techni bart ID = [id number] for Sa enz, Angela [id number] 06:31:16 Test Item Value Reference Range Interpretation Comments ACTIVATED CLOTTING TIME > sec : 74 -137 seconds, (BEAKER) (test code = Baseli ne: TESTED AT 441) [address], [address]: [employer]lasses Inspector/Techni bart ID = [id number] for Sa enz, Angela [id number] 06:31:15 Test Item Value Reference Range Interpretation Comments ACTIVATED CLOTTING TIME > sec : 74 -137 seconds, (BEAKER) (test code = Baseli ne: TESTED AT 441) [address], [address]: [employer]lasses Inspector/Techni bart ID = [id number] for Sa enz, Angela [id number] 06:31:14 Test Item Value Reference Range Interpretation Comments ACTIVATED CLOTTING TIME 708 sec : 74 -137 seconds, (BEAKER) (test code = Baseli ne: TESTED AT 441) [address], [address]: [employer]lasses Inspector/Techni abrt ID = [id number] for Sa enz, Angela [id number] 06:31:13 Test Item Value Reference Range Interpretation Comments ACTIVATED CLOTTING TIME 154 sec : 74 -137 seconds, (BEAKER) (test code = Baseli ne: TESTED AT 441) [address], [address]: [employer]lasses Inspector/Techni bart ID = [id number] for Sa enz, Angela POCT-GLUCOSE [id number] 06:26:19 Test Item Value Reference Range Interpretation Comments POC-GLUCOSE METER 117 mg/dL 70-110 H : TESTED A T [place] [address] (BEAKER) (test code = [facility], 1538) [address]: [employer] S[employer]lasses Inspector/Techni bart ID = [id number] for La nate Jane GLUCOSE-STAT [id number] 06:21:12 Test Item Value Reference Range Interpretation Comments GLUCOSE RANDOM (BEAKER) (test code 123 mg/dL 70-110 H = 652) HGB/HCT (H&H) - STAT [id number] 06:21:12 Test Item Value Reference Range Interpretation Comments HEMOGLOBIN (BEAKER) (test code = 8.3 GM/DL 13.0-16.8 L 410) HEMATOCRIT (BEAKER) (test code = 24.0 % 40.0-50.0 L 411) BLOOD GAS, [id number] 06:21:11 Test Item Value Reference Range Interpretation Comments PH ARTERIAL (BEAKER) (test code = 7.45 7.35-7.45 383) PCO2 ARTERIAL (BEAKER) (test code 33 mm Hg 35-45 L = 384) PO2 ARTERIAL (BEAKER) (test code 130 mm Hg 80-90 H = 385) O2 SATURATION ARTERIAL (BEAKER) 98.7 % 96.0-97.0 H (test code = 386) HCO3 ARTERIAL (BEAKER) (test code 23 mmol/L 21-29 = 388) BASE EXCESS ARTERIAL (BEAKER) -1.0 mmol/L -2.0-3.0 (test code = 387) PATIENT TEMPERATURE (BEAKER) 37.2 (test code = 1818) FIO2 (BEAKER) (test code = 1819) 40.0 POTASSIUM-STAT [id number] 06:19:05 Test Item Value Reference Range Interpretation Comments POTASSIUM (BEAKER) (test code = 4.1 meq/L 3.6-5.5 379) SODIUM NA-STAT [id number] 06:19:04 Test Item Value Reference Range Interpretation Comments SODIUM (BEAKER) (test code = 381) 140 meq/L 136-145 POCT-GLUCOSE [id number] 06:03:00 Test Item Value Reference Range Interpretation Comments POC-GLUCOSE METER 117 mg/dL 70-110 H : TESTED A T [facility] 6720 (BEAKER) (test code = [facility], 1538) [address]: [employer] S[employer]lasses Inspector/Techni bart ID = [id number] for Jane Payne POCT-GLUCOSE [id number] 04:27:30 Test Item Value Reference Range Interpretation Comments POC-GLUCOSE METER 131 mg/dL 70-110 H : TESTED A T [facility] 6720 (BEAKER) (test code = [facility], 1538) [address]: [employer]lasses Inspector/Techni bart ID = [id number] for Jane Payne HGB/HCT (H&H) - STAT [id number] 04:22:31 Test Item Value Reference Range Interpretation Comments HEMOGLOBIN (BEAKER) (test code = 8.5 GM/DL 13.0-16.8 L 410) HEMATOCRIT (BEAKER) (test code = 25.0 % 40.0-50.0 L 411) BLOOD GAS, [id number] 04:22:30 Test Item Value Reference Range Interpretation Comments PH ARTERIAL (BEAKER) (test code = 7.54 7.35-7.45 H 383) PCO2 ARTERIAL (BEAKER) (test code 26 mm Hg 35-45 L = 384) PO2 ARTERIAL (BEAKER) (test code 169 mm Hg 80-90 H = 385) O2 SATURATION ARTERIAL (BEAKER) 99.3 % 96.0-97.0 H (test code = 386) HCO3 ARTERIAL (BEAKER) (test code 22 mmol/L 21-29 = 388) BASE EXCESS ARTERIAL (BEAKER) -0.1 mmol/L -2.0-3.0 (test code = 387) PATIENT TEMPERATURE (BEAKER) 36.9 (test code = 1818) FIO2 (BEAKER) (test code = 1819) 40.0 GLUCOSE-STAT [id number] 04:22:30 Test Item Value Reference Range Interpretation Comments GLUCOSE RANDOM (BEAKER) (test code 145 mg/dL 70-110 H = 652) OXYGEN SATURATION, [id number] 04:22:06 Test Item Value Reference Range Interpretation Comments O2 SATURATION (MEASURED) (BEAKER) 70.0 % (test code = 1455) SODIUM NA-STAT [id number] 04:21:07 Test Item Value Reference Range Interpretation Comments SODIUM (BEAKER) (test code = 381) 138 meq/L 136-145 POTASSIUM-STAT [id number] 04:21:07 Test Item Value Reference Range Interpretation Comments POTASSIUM (BEAKER) (test code = 4.0 meq/L 3.6-5.5 379) RAD, CHEST, 1 VIEW, NON [id number] 04:06:00while patient is intubated or has chest tubes.Reason for exam:->Status post CV SurgeryShould thisbe performed at the bedside?->Yes [facility] 1945 Sex: MFINAL REPORT RAD, CHEST, 1 VIEW, NON DEPT INDICATION: Status post CV Surgery COMPARISON: Prior day's exam FINDINGS: Portable frontal view of the chest. IMPRESSION: Support Lines: Slight repositioning of the right IJ [place] catheter tip overlying the main pulmonary artery. Lungs and pleura: Unchanged airspace and pleural opacities. No pneumothorax.Heart and mediastinum: Stable contours. Stable surgical changes.Additional findings: None. Signed: Celia Nassar Verified Date/Time: 09/08/2021 04:06:10 IC ACID, [id number] 03:28:09 Test Item Value Reference Range Interpretation Comments LACTATE BLOOD ARTERIAL (2) 4.4 mmol/L 0.5-2.2 HH ([facility]) (test code = 2874) [employer] Sunglasses Inspector ID - DBPOCT-GLUCOSE [id number] 03:20:20 Test Item Value Reference Range Interpretation Comments POC-GLUCOSE METER 127 mg/dL 70-110 H : TESTED A T [facility] 6720 ([facility]) (test code = [place], 1538) [address]: [employer] Sunglasses Inspector/Techni bart ID = [id number] for Jane Payne CBC W/PLT COUNT & AUTO [id number] 03:14:20 Test Item Value Reference Range Interpretation Comments WHITE BLOOD CELL COUNT (ELINABANNER) 10.5 K/ L 3.5-10.5 (test code = 775) RED BLOOD CELL COUNT (BEAKER) 3.02 M/ L 4.63-6.08 L (test code = 761) HEMOGLOBIN (BEAKER) (test code = 7.9 GM/DL 13.7-17.5 L 410) HEMATOCRIT (BEAKER) (test code = 25.9 % 40.1-51.0 L 411) MEAN CORPUSCULAR VOLUME (BEAKER) 85.8 fL 79.0-92.2 (test code = 753) MEAN CORPUSCULAR HEMOGLOBIN 26.2 pg 25.7-32.2 (BEAKER) (test code = 751) MEAN CORPUSCULAR HEMOGLOBIN CONC 30.5 GM/DL 32.3-36.5 L (BEAKER) (test code = 752) RED CELL DISTRIBUTION WIDTH 20.0 % 11.6-14.4 H (BEAKER) (test code = 412) PLATELET COUNT (BEAKER) (test 152 K/CU MM 150-450 code = 756) MEAN PLATELET VOLUME (BEAKER) 11.1 fL 9.4-12.4 (test code = 754) NUCLEATED RED BLOOD CELLS 1 /100 WBC 0-0 H (BEAKER) (test code = 413) NEUTROPHILS RELATIVE PERCENT 84 % (BEAKER) (test code = 429) LYMPHOCYTES RELATIVE PERCENT 8 % (BEAKER) (test code = 430) MONOCYTES RELATIVE PERCENT 7 % (BEAKER) (test code = 431) EOSINOPHILS RELATIVE PERCENT 0 % (BEAKER) (test code = 432) BASOPHILS RELATIVE PERCENT 0 % (BEAKER) (test code = 437) NEUTROPHILS ABSOLUTE COUNT 8.87 K/ L 1.78-5.38 H (BEAKER) (test code = 670) LYMPHOCYTES ABSOLUTE COUNT 0.81 K/ L 1.32-3.57 L (BEAKER) (test code = 414) MONOCYTES ABSOLUTE COUNT (BEAKER) 0.74 K/ L 0.30-0.82 (test code = 415) EOSINOPHILS ABSOLUTE COUNT 0.02 K/ L 0.04-0.54 L (BEAKER) (test code = 416) BASOPHILS ABSOLUTE COUNT (BEAKER) 0.04 K/ L 0.01-0.08 (test code = 417) IMMATURE GRANULOCYTES-RELATIVE 1 % 0-1 PERCENT (BEAKER) (test code = 2801) [id number] 03:02:27 Test Item Value Reference Range Interpretation Comments PHOSPHORUS (BEAKER) (test code = 2.5 mg/dL 2.3-4.7 604) [employer] ID - [id number] 03:02:26 Test Item Value Reference Range Interpretation Comments MAGNESIUM (BEAKER) (test code = 2.3 mg/dL 1.6-2.6 627) [employer] Inspector ID - DBCOMPREHENSIVE METABOLIC [id number] 03:02:25 Test Item Value Reference Range Interpretation Comments TOTAL PROTEIN 5.2 gm/dL 6.0-8.3 L (BEAKER) (test code = 770) ALBUMIN (BEAKER) 3.4 g/dL 3.5-5.0 L (test code = 1145) ALKALINE PHOSPHATASE 48 U/L 40-150 (BEAKER) (test code = 346) BILIRUBIN TOTAL 1.7 mg/dL 0.2-1.2 H (BEAKER) (test code = 377) SODIUM (BEAKER) (test 141 meq/L 136-145 code = 381) POTASSIUM (BEAKER) 4.0 meq/L 3.5-5.1 (test code = 379) CHLORIDE (BEAKER) 110 meq/L 98-107 H (test code = 382) CO2 (BEAKER) (test 21 meq/L 22-29 L code = 355) BLOOD UREA NITROGEN 16 mg/dL 7-21 (BEAKER) (test code = 354) CREATININE (BEAKER) 0.94 mg/dL 0.57-1.25 (test code = 358) GLUCOSE RANDOM 163 mg/dL 70-105 H (BEAKER) (test code = 652) CALCIUM (BEAKER) 8.8 mg/dL 8.4-10.2 (test code = 697) AST (SGOT) (BEAKER) 71 U/L 5-34 H (test code = 353) ALT (SGPT) (BEAKER) 43 U/L 6-55 (test code = 347) EGFR (BEAKER) (test 78 mL/min/1.73 ESTIMA [place] GFR IS code = 1092) sq m NOT ACCURATE CREATININE CLEARANCE IN PREDICTING GLOMERULAR FILTRATION RATE . ESTIMATED GFR I S NOT APPLICABLE FOR DIALYSIS PATIEN TS. [employer] Inspector ID - [id number], [id number] 02:42:47 Test Item Value Reference Range Interpretation Comments CALCIUM IONIZED (BEAKER) (test 1.09 mmol/L 1.12-1.27 L code = 698) PH, BLOOD (BEAKER) (test code = 7.51 1810) GLUCOSE-STAT [id number] 02:42:45 Test Item Value Reference Range Interpretation Comments GLUCOSE RANDOM (BEAKER) (test code 162 mg/dL 70-110 H = 652) HGB/HCT (H&H) - STAT [id number] 02:42:45 Test Item Value Reference Range Interpretation Comments HEMOGLOBIN (BEAKER) (test code = 8.3 GM/DL 13.0-16.8 L 410) HEMATOCRIT (BEAKER) (test code = 24.0 % 40.0-50.0 L 411) BLOOD GAS, [id number] 02:42:44 Test Item Value Reference Range Interpretation Comments PH ARTERIAL (BEAKER) (test code = 7.50 7.35-7.45 H 383) PCO2 ARTERIAL (BEAKER) (test code 28 mm Hg 35-45 L = 384) PO2 ARTERIAL (BEAKER) (test code 158 mm Hg 80-90 H = 385) O2 SATURATION ARTERIAL (BEAKER) 99.2 % 96.0-97.0 H (test code = 386) HCO3 ARTERIAL (BEAKER) (test code 21 mmol/L 21-29 = 388) BASE EXCESS ARTERIAL (BEAKER) -1.3 mmol/L -2.0-3.0 (test code = 387) PATIENT TEMPERATURE (BEAKER) 37.1 (test code = 1818) FIO2 (BEAKER) (test code = 1819) 40.0 SODIUM NA-STAT [id number] 02:39:19 Test Item Value Reference Range Interpretation Comments SODIUM (BEAKER) (test code = 381) 138 meq/L 136-145 POTASSIUM-STAT [id number] 02:39:19 Test Item Value Reference Range Interpretation Comments POTASSIUM (BEAKER) (test code = 3.8 meq/L 3.6-5.5 379) POCT-GLUCOSE [id number] 02:22:45 Test Item Value Reference Range Interpretation Comments POC-GLUCOSE METER 148 mg/dL 70-110 H : TESTED A T [facility] 6720 (BEAKER) (test code = [facility], 1538) [id number]: Clip On Sunglasses Inspector/Techni bart ID = [id number] for Jane Payne OXYGEN SATURATION, [id number] 01:24:13 Test Item Value Reference Range Interpretation Comments O2 SATURATION (MEASURED) (BEAKER) 71.6 % (test code = 1455) POCT-GLUCOSE [id number] 01:14:53 Test Item Value Reference Range Interpretation Comments POC-GLUCOSE METER 159 mg/dL 70-110 H : TESTED A T [facility] 6720 (BEAKER) (test code = [facility], 1538) [id number]: Clip On Sunglasses Inspector/Techni bart ID = [id number] for Jane Payne POCT-GLUCOSE [id number] 00:12:10 Test Item Value Reference Range Interpretation Comments POC-GLUCOSE METER 170 mg/dL 70-110 H : TESTED A T [facility] 6720 (BEAKER) (test code = [facility], 1538) [id number]: Clip On Sunglasses Inspector/Techni bart ID = [id number] for Jane Payne HGB/HCT (H&H) - STAT [id number] 00:01:07 Test Item Value Reference Range Interpretation Comments HEMOGLOBIN (BEAKER) (test code = 8.6 GM/DL 13.0-16.8 L 410) HEMATOCRIT (BEAKER) (test code = 25.0 % 40.0-50.0 L 411) BLOOD GAS, [id number] 00:01:06 Test Item Value Reference Range Interpretation Comments PH ARTERIAL (BEAKER) (test code = 7.49 7.35-7.45 H 383) PCO2 ARTERIAL (BEAKER) (test code 29 mm Hg 35-45 L = 384) PO2 ARTERIAL (BEAKER) (test code 160 mm Hg 80-90 H = 385) O2 SATURATION ARTERIAL (BEAKER) 99.2 % 96.0-97.0 H (test code = 386) HCO3 ARTERIAL (BEAKER) (test code 22 mmol/L 21-29 = 388) BASE EXCESS ARTERIAL (BEAKER) -1.1 mmol/L -2.0-3.0 (test code = 387) PATIENT TEMPERATURE (BEAKER) 37.5 (test code = 1818) FIO2 (BEAKER) (test code = 1819) 40.0 GLUCOSE-STAT [id number] 00:01:06 Test Item Value Reference Range Interpretation Comments GLUCOSE RANDOM (BEAKER) (test code 185 mg/dL 70-110 H = 652) POTASSIUM-STAT [id number] 00:00:02 Test Item Value Reference Range Interpretation Comments POTASSIUM (BEAKER) (test code = 4.0 meq/L 3.6-5.5 379) SODIUM NA-STAT [id number] 00:00:01 Test Item Value Reference Range Interpretation Comments SODIUM (BEAKER) (test code = 381) 138 meq/L 136-145 POCT-GLUCOSE [id number] 23:16:14 Test Item Value Reference Range Interpretation Comments POC-GLUCOSE METER 169 mg/dL 70-110 H : TESTED A T [facility] 6720 (BEBANNER) (test code = [facility], 1538) [id number]: Clip [employer] Sunglasses Inspector/Techni bart ID = [id number] for La nate, Jane POCT-GLUCOSE [id number] 22:48:00 Test Item Value Reference Range Interpretation Comments POC-GLUCOSE METER 186 mg/dL 70-110 H : TESTED A T [facility] 6720 ([facility]) (test code = [facility], 1538) [id number]: Clip On Sunglasses Inspector/Techni bart ID = [id number] for La nate, Jane LACTIC ACID, [id number] 22:32:03 Test Item Value Reference Range Interpretation Comments LACTATE BLOOD ARTERIAL (2) 7.7 mmol/L 0.5-2.2 HH (AKER) (test code = 2874) Clip On Sunglasses Inspector ID - DBSpecimen slightly [id number] 22:20:51 Test Item Value Reference Range Interpretation Comments PARTIAL THROMBOPLASTIN TIME 50.9 seconds 22.5-36.0 H (BEAKER) (test code = 760) POCT-GLUCOSE [id number] 22:10:53 Test Item Value Reference Range Interpretation Comments POC-GLUCOSE METER 203 mg/dL 70-110 H : TESTED A T [facility] 6720 ([facility]) (test code = [facility], 1538) [id number]: Clip On Sunglasses Inspector/Techni bart ID = [id number] for La nate, Jane HGB/HCT (H&H) - STAT [id number] 22:10:05 Test Item Value Reference Range Interpretation Comments HEMOGLOBIN (BEAKER) (test code = 8.4 GM/DL 13.0-16.8 L 410) HEMATOCRIT (BEAKER) (test code = 25.0 % 40.0-50.0 L 411) GLUCOSE-STAT [id number] 22:10:04 Test Item Value Reference Range Interpretation Comments GLUCOSE RANDOM (BEAKER) (test code 203 mg/dL 70-110 H = 652) BLOOD GAS, [id number] 22:10:03 Test Item Value Reference Range Interpretation Comments PH ARTERIAL (BEAKER) (test code = 7.45 7.35-7.45 383) PCO2 ARTERIAL (BEAKER) (test code 33 mm Hg 35-45 L = 384) PO2 ARTERIAL (BEAKER) (test code 156 mm Hg 80-90 H = 385) O2 SATURATION ARTERIAL (BEAKER) 99.1 % 96.0-97.0 H (test code = 386) HCO3 ARTERIAL (BEAKER) (test code 22 mmol/L 21-29 = 388) BASE EXCESS ARTERIAL (BEAKER) -1.1 mmol/L -2.0-3.0 (test code = 387) PATIENT TEMPERATURE (BEAKER) 37.8 (test code = 1818) FIO2 (BEAKER) (test code = 1819) 40.0 SODIUM NA-STAT [id number] 22:09:47 Test Item Value Reference Range Interpretation Comments SODIUM (BEAKER) (test code = 381) 140 meq/L 136-145 POTASSIUM-STAT [id number] 22:09:47 Test Item Value Reference Range Interpretation Comments POTASSIUM (BEAKER) (test code = 3.8 meq/L 3.6-5.5 379) BASIC METABOLIC [id number] 21:03:11 Test Item Value Reference Range Interpretation Comments SODIUM (BEAKER) 141 meq/L 136-145 (test code = 381) POTASSIUM (BEAKER) 4.1 meq/L 3.5-5.1 (test code = 379) CHLORIDE (BEAKER) 111 meq/L 98-107 H (test code = 382) CO2 (BEAKER) (test 20 meq/L 22-29 L code = 355) BLOOD UREA NITROGEN 15 mg/dL 7-21 (BEAKER) (test code = 354) CREATININE (BEAKER) 1.15 mg/dL 0.57-1.25 (test code = 358) GLUCOSE RANDOM 214 mg/dL 70-105 H (BEAKER) (test code = 652) CALCIUM (BEAKER) 8.6 mg/dL 8.4-10.2 (test code = 697) EGFR (BEAKER) (test 62 mL/min/1.73 ESTIMA LA GFR IS code = 1092) sq m NOT ACCURATE CREATININE CLEARANCE IN PREDICTING GLOMERULAR FILTRATION RATE . ESTIMATED GFR I S NOT APPLICABLE FOR DIALYSIS PATIEN TS. Clip On Sunglasses Inspector ID - MARZENA MHGB/HCT (H&H) - STAT [id number] 20:56:34 Test Item Value Reference Range Interpretation Comments HEMOGLOBIN (BEAKER) (test code = 9.2 GM/DL 13.0-16.8 L 410) HEMATOCRIT (BEAKER) (test code = 27.0 % 40.0-50.0 L 411) GLUCOSE-STAT [id number] 20:56:33 Test Item Value Reference Range Interpretation Comments GLUCOSE RANDOM (BEAKER) (test code 216 mg/dL 70-110 H = 652) BLOOD GAS, [id number] 20:56:32 Test Item Value Reference Range Interpretation Comments PH ARTERIAL (BEAKER) (test code = 7.42 7.35-7.45 383) PCO2 ARTERIAL (BEAKER) (test code 32 mm Hg 35-45 L = 384) PO2 ARTERIAL (BEAKER) (test code 147 mm Hg 80-90 H = 385) O2 SATURATION ARTERIAL (BEAKER) 98.9 % 96.0-97.0 H (test code = 386) HCO3 ARTERIAL (BEAKER) (test code 20 mmol/L 21-29 L = 388) BASE EXCESS ARTERIAL (BEAKER) -3.5 mmol/L -2.0-3.0 L (test code = 387) PATIENT TEMPERATURE (BEAKER) 38.0 (test code = 1818) FIO2 (BEAKER) (test code = 1819) 40.0 POTASSIUM-STAT [id number] 20:55:37 Test Item Value Reference Range Interpretation Comments POTASSIUM (BEAKER) (test code = 3.9 meq/L 3.6-5.5 379) SODIUM NA-STAT [id number] 20:55:36 Test Item Value Reference Range Interpretation Comments SODIUM (BEAKER) (test code = 381) 138 meq/L 136-145 LACTIC ACID, [id number] 19:32:31 Test Item Value Reference Range Interpretation Comments LACTATE BLOOD ARTERIAL (2) 9.1 mmol/L 0.5-2.2 HH (BEAKER) (test code = 2874) Clip On Sunglasses Inspector ID - MARZENA [facility] (HEMOGRAM ONLY)2021-09-07 19:15:57 Test Item Value Reference Range Interpretation Comments WHITE BLOOD CELL COUNT (BEAKER) 16.6 K/ L 3.5-10.5 H (test code = 775) RED BLOOD CELL COUNT (BEAKER) 3.32 M/ L 4.63-6.08 L (test code = 761) HEMOGLOBIN (BEAKER) (test code = 8.6 GM/DL 13.7-17.5 L 410) HEMATOCRIT (BEAKER) (test code = 28.6 % 40.1-51.0 L 411) MEAN CORPUSCULAR VOLUME (BEAKER) 86.1 fL 79.0-92.2 (test code = 753) MEAN CORPUSCULAR HEMOGLOBIN 25.9 pg 25.7-32.2 (BEAKER) (test code = 751) MEAN CORPUSCULAR HEMOGLOBIN CONC 30.1 GM/DL 32.3-36.5 L (BEAKER) (test code = 752) RED CELL DISTRIBUTION WIDTH 19.7 % 11.6-14.4 H (BEAKER) (test code = 412) PLATELET COUNT (BEAKER) (test 161 K/CU MM 150-450 code = 756) MEAN PLATELET VOLUME (BEAKER) 10.5 fL 9.4-12.4 (test code = 754) NUCLEATED RED BLOOD CELLS 0 /100 WBC 0-0 (BEAKER) (test code = 413) BLOOD GAS, [id number] 19:14:26 Test Item Value Reference Range Interpretation Comments PH ARTERIAL (BEAKER) (test code = 7.42 7.35-7.45 383) PCO2 ARTERIAL (BEAKER) (test code 32 mm Hg 35-45 L = 384) PO2 ARTERIAL (BEAKER) (test code 150 mm Hg 80-90 H = 385) O2 SATURATION ARTERIAL (BEAKER) 99.0 % 96.0-97.0 H (test code = 386) HCO3 ARTERIAL (BEAKER) (test code 20 mmol/L 21-29 L = 388) BASE EXCESS ARTERIAL (BEAKER) -3.4 mmol/L -2.0-3.0 L (test code = 387) PATIENT TEMPERATURE (BEAKER) 37.6 (test code = 1818) FIO2 (BEAKER) (test code = 1819) 60.0 OXYGEN SATURATION, [id number] 19:14:15 Test Item Value Reference Range Interpretation Comments O2 SATURATION (MEASURED) (BEAKER) 72.3 % (test code = 1455) POCT-GLUCOSE [id number] 18:29:54 Test Item Value Reference Range Interpretation Comments POC-GLUCOSE METER 170 mg/dL 70-110 H : TESTED A T [facility] 6720 (BEAKER) (test code = [facility], 1538) [id number]: Clip On Sunglasses Inspector/Techni bart ID = [id number] for CO ONCE, SHELLEY CT, CTA, [id number] 17:57:00Unlisted Reason for Exam - Click Yes and Enter Reason Below->YesUnlisted Reason for Exam->Pre op evaluation of aorta, assessment prior to cardiac surgery. need to see distance of aorta from chest wall and calcification of aorta [facility] : 1945 Sex: MAddendum BeginsREPORT STATUS:A Addendum: I agree with the previou sly described non vascular findings by Dr. Humphreys with the following additions: Hyperdense material noted within the gallbladder on the precontrast images which may represent vicarious excretion of contrast material versus sludge. Diverticula noted within the sigmoid colon without evidence for acute di verticulitis. Signed: Neeraj Lucio MDReport Verified Date/Time: 09/07/2021 17:57:58 Reading Location: [facility] Radiology Reading RoomAddendum EndsFINAL REPORT CTA Aorta - Chest, Abdomen, and Pelvis: 09/04/2021 4:13 PM. Comparison: None available. Clinical History: 76 years old Male with severe mitral valve disease here for potential robotically assisted/minimally invasive mitral valve repair. The study is performed to assess vascular access for robotic assistance. Technique:Spiral acquisition before and during intravenous contrast administration using a (Siemens Somatom force scanner). Images were obtained before and during the dynamic passage of intravenous contrast material. Multi-planar 3-D volume-rendering reconstruction was performed using an independent workstation interactively by the interpreting physician as well as the 3-D specialist for optimal visualizationof the thoracoabdominal aorta, the pelvic arteries as well as its proximal branches. Please refer tothe contrast sheet scanned in the EPIC system for the amount and route of contrast given. This exam was performed according to our departmental dose-optimisation programme, which includes automated exposure control, adjustment of the mA and/or kV according to patient size and/or use of iterative reconstruction technique. Dose modulation, iterative reconstruction, and/or weight based adjustment of themA/kV was utilized to reduce the radiation dose to as low as reasonably achievable. RESULT: Potential study limitations: None. CHEST:The visualized thyroid gland is remarkable for bilateral nodules inboth the thyroid lobes with the largest measuring 1 cm in the left thyroid lobe, dedicated ultrasound is recommended given the size of the lesion. The chest wall is unremarkable. The mediastinum is unremarkable. There are calcified mediastinal and right hilar lymphadenopathy, likely from prior granulomatous lung disease. The pericardium appears normal. The pulmonary arteries are normal. Lung windows reveal scattered bilateral groundglass opacification and moderate right and small left pleural effusions with associated atelectasis of the lung benson, all consistent with pulmonary congestion. The cardiac chambers have normal atrioventricular and ventriculoarterial concordance, and systemic and pulmonary venous return. The cardiac chamber sizes are notable for moderate left atrial, severe left ventricular and mild right atrial enlargement. The mitral valve leaflets are moderately thickened, somewhat redundant, but noncalcified. The coronary arteries have normal origins and courses. There are mild to moderate coronary calcifications identified, though this study was not optimized for coronary artery evaluation. VASCULAR WITH ADVANCED 3-D OFF-LINE POSTPROCESSING:The aortic valve is trileaflet and is trivially calcified. The aortic root is symmetric and normal in dimension. The sinotubular junction is preserved. The thoracic aorta is normal in course and caliber with mild calcific atherosclerotic changes involving the arch and descending thoracic aorta. The arch vessel branching pattern is normal, and the arch branch vessels are all widely patent in their proximal portions. The abdominal aorta is normal in course and caliber with mild to moderate calcification involving the infrarenal segment of the abdominal aorta. There is no acute aortic pathology. Automotive Warranty Administrator dimensions of the thoracic aorta are as follows: *3.2 cm at the sinuses of Valsalva measured sinus to commissure*3.2 cm at the mid ascending aorta*3.2 cm at the distal ascending aorta*2.7 cm at the mid transverse arch*2.4 cm at the proximal descending thoracic aorta*2.1 cm at the diaphragmatic hiatus The abdominal aorta measures: *2.0 cm at the supramesenteric segment*1.9 cm at the mesenteric segment*1.8 cm at therenal segment*1.3 x 1.3 cm at the mid infrarenal segment*1.4 x 1.4 cm at the aortic bifurcation The celiac axis, SMA, and KERRI are patent. There are two left and one right renal artery with mild to moderate calcific atherosclerotic changes involving the proximal segment of the left renal arteries, however with normal contrast opacification and no significant luminal stenosis. The pelvic arteries aretortuous, with mild calcific atherosclerotic changes predominantly involving the bilateral common iliac arteries. The bilateral external iliac arteries are normal in course, caliber and contour. The common femoral arteries are normal in course and caliber with mild calcification involving the ostium of the left SFA. ABDOMEN/PELVIS:The liver, gallbladder, spleen, and pancreas appear unremarkable. The adrenal glands and both kidneys are unremarkable. There is no abnormal mass or hydronephrosis in either kidney. There is 3.1 cm simple appearing renal cyst involving the left kidney (image 221). There is no significant retroperitoneal adenopathy. No free fluid or free air within the abdomen or pelvis. The bowel appears unremarkable on this non-GI contrast examination. The urinary bladder appears normal. There are scattered phleboliths within the deep pelvis. IMPRESSION: 1. Moderate left atrial, severe left ventricular and mild right atrial enlargement. 2. The thoracic aorta is normal in course and caliber with mild calcification involving the arch and descending thoracic aorta. The abdomin al aorta is normal in course and caliber with mild to moderate calcification predominantly involvingthe infrarenal segment of the abdominal aorta. 3. The pelvic arteries are tortuous, mild calcific atherosclerotic changes involving the bilateral common iliac arteries, but normal in caliber. 4. Bilateral groundglass opacification and moderate right and small left pleural effusions with associated atelectasis of the lung benson, all consistent with pulmonary congestion. 5. The visualized thyroid gland is remarkable for bilateral nodules in both the thyroid lobes with the largest measuring 1 cm in the left thyroid lobe, dedicated ultrasound is recommended given the size of the lesion. Signed: Bhargav Humphreys MDReport Verified Date/Time: 09/06/2021 10:03:27 CT, CTA [id number] 17:57:00Unlisted Reason for Exam - Click Yes and Enter Reason Below->YesUnlisted Reason for Exam->Evaluate descending aorta for calcification down to femoral vessels, prior to cannulation of femoral artery and vein for cardiac surgery. [facility] : 1945 Sex: MAddendum BeginsREPORT STATUS:A Addendum: I agree with the previou sly described non vascular findings by Dr. Humphreys with the following additions: Hyperdense material noted within the gallbladder on the precontrast images which may represent vicarious excretion of contrast material versus sludge. Diverticula noted within the sigmoid colon without evidence for acute di verticulitis. Signed: Neeraj Lucio MDReport Verified Date/Time: 09/07/2021 17:57:58 Reading Location: [facility] Radiology Reading RoomAddendum EndsFINAL REPORT CTA Aorta - Chest, Abdomen, and Pelvis: 09/04/2021 4:13 PM. Comparison: None available. Clinical History: 76 years old Male with severe mitral valve disease here for potential robotically assisted/minimally invasive mitral valve repair. The study is performed to assess vascular access for robotic assistance. Technique:Spiral acquisition before and during intravenous contrast administration using a (Siemens Somatom force scanner). Images were obtained before and during the dynamic passage of intravenous contrast material. Multi-planar 3-D volume-rendering reconstruction was performed using an independent workstation interactively by the interpreting physician as well as the 3-D specialist for optimal visualizationof the thoracoabdominal aorta, the pelvic arteries as well as its proximal branches. Please refer tothe contrast sheet scanned in the EPIC system for the amount and route of contrast given. This exam was performed according to our departmental dose-optimisation programme, which includes automated exposure control, adjustment of the mA and/or kV according to patient size and/or use of iterative reconstruction technique. Dose modulation, iterative reconstruction, and/or weight based adjustment of themA/kV was utilized to reduce the radiation dose to as low as reasonably achievable. RESULT: Potential study limitations: None. CHEST:The visualized thyroid gland is remarkable for bilateral nodules inboth the thyroid lobes with the largest measuring 1 cm in the left thyroid lobe, dedicated ultrasound is recommended given the size of the lesion. The chest wall is unremarkable. The mediastinum is unremarkable. There are calcified mediastinal and right hilar lymphadenopathy, likely from prior granulomatous lung disease. The pericardium appears normal. The pulmonary arteries are normal. Lung windows reveal scattered bilateral groundglass opacification and moderate right and small left pleural effusions with associated atelectasis of the lung benson, all consistent with pulmonary congestion. The cardiac chambers have normal atrioventricular and ventriculoarterial concordance, and systemic and pulmonary venous return. The cardiac chamber sizes are notable for moderate left atrial, severe left ventricular and mild right atrial enlargement. The mitral valve leaflets are moderately thickened, somewhat redundant, but noncalcified. The coronary arteries have normal origins and courses. There are mild to moderate coronary calcifications identified, though this study was not optimized for coronary artery evaluation. VASCULAR WITH ADVANCED 3-D OFF-LINE POSTPROCESSING:The aortic valve is trileaflet and is trivially calcified. The aortic root is symmetric and normal in dimension. The sinotubular junction is preserved. The thoracic aorta is normal in course and caliber with mild calcific atherosclerotic changes involving the arch and descending thoracic aorta. The arch vessel branching pattern is normal, and the arch branch vessels are all widely patent in their proximal portions. The abdominal aorta is normal in course and caliber with mild to moderate calcification involving the infrarenal segment of the abdominal aorta. There is no acute aortic pathology. Automotive Warranty Administrator dimensions of the thoracic aorta are as follows: *3.2 cm at the sinuses of Valsalva measured sinus to commissure*3.2 cm at the mid ascending aorta*3.2 cm at the distal ascending aorta*2.7 cm at the mid transverse arch*2.4 cm at the proximal descending thoracic aorta*2.1 cm at the diaphragmatic hiatus The abdominal aorta measures: *2.0 cm at the supramesenteric segment*1.9 cm at the mesenteric segment*1.8 cm at therenal segment*1.3 x 1.3 cm at the mid infrarenal segment*1.4 x 1.4 cm at the aortic bifurcation The celiac axis, SMA, and KERRI are patent. There are two left and one right renal artery with mild to moderate calcific atherosclerotic changes involving the proximal segment of the left renal arteries, however with normal contrast opacification and no significant luminal stenosis. The pelvic arteries aretortuous, with mild calcific atherosclerotic changes predominantly involving the bilateral common iliac arteries. The bilateral external iliac arteries are normal in course, caliber and contour. The common femoral arteries are normal in course and caliber with mild calcification involving the ostium of the left SFA. ABDOMEN/PELVIS:The liver, gallbladder, spleen, and pancreas appear unremarkable. The adrenal glands and both kidneys are unremarkable. There is no abnormal mass or hydronephrosis in either kidney. There is 3.1 cm simple appearing renal cyst involving the left kidney (image 221). There is no significant retroperitoneal adenopathy. No free fluid or free air within the abdomen or pelvis. The bowel appears unremarkable on this non-GI contrast examination. The urinary bladder appears normal. There are scattered phleboliths within the deep pelvis. IMPRESSION: 1. Moderate left atrial, severe left ventricular and mild right atrial enlargement. 2. The thoracic aorta is normal in course and caliber with mild calcification involving the arch and descending thoracic aorta. The abdomin al aorta is normal in course and caliber with mild to moderate calcification predominantly involvingthe infrarenal segment of the abdominal aorta. 3. The pelvic arteries are tortuous, mild calcific atherosclerotic changes involving the bilateral common iliac arteries, but normal in caliber. 4. Bilateral groundglass opacification and moderate right and small left pleural effusions with associated atelectasis of the lung benson, all consistent with pulmonary congestion. 5. The visualized thyroid gland is remarkable for bilateral nodules in both the thyroid lobes with the largest measuring 1 cm in the left thyroid lobe, dedicated ultrasound is recommended given the size of the lesion. Signed: Bhargav Humphreys MDReport Verified Date/Time: 09/06/2021 10:03:27 LACTIC ACID, [id number] 17:36:22 Test Item Value Reference Range Interpretation Comments LACTATE BLOOD 8.2 mmol/L 0.5-2.2 HH Specimen sligh tly ARTERIAL (2) (BEAKER) hemoly zed (test code = 2874) Clip On Sunglasses Inspector ID - MARZENA MHGB/HCT (H&H) - STAT [id number] 17:15:52 Test Item Value Reference Range Interpretation Comments HEMOGLOBIN (BEAKER) (test code = 8.7 GM/DL 13.0-16.8 L 410) HEMATOCRIT (BEAKER) (test code = 26.0 % 40.0-50.0 L 411) GLUCOSE-STAT [id number] 17:15:51 Test Item Value Reference Range Interpretation Comments GLUCOSE RANDOM (BEAKER) (test code 179 mg/dL 70-110 H = 652) BLOOD GAS, [id number] 17:15:50 Test Item Value Reference Range Interpretation Comments PH ARTERIAL (BEAKER) (test code = 7.41 7.35-7.45 383) PCO2 ARTERIAL (BEAKER) (test code 31 mm Hg 35-45 L = 384) PO2 ARTERIAL (BEAKER) (test code 122 mm Hg 80-90 H = 385) O2 SATURATION ARTERIAL (BEAKER) 98.6 % 96.0-97.0 H (test code = 386) HCO3 ARTERIAL (BEAKER) (test code 20 mmol/L 21-29 L = 388) BASE EXCESS ARTERIAL (BEAKER) -4.6 mmol/L -2.0-3.0 L (test code = 387) PATIENT TEMPERATURE (BEAKER) 35.8 (test code = 1818) FIO2 (BEAKER) (test code = 1819) 40.0 POTASSIUM-STAT [id number] 17:15:06 Test Item Value Reference Range Interpretation Comments POTASSIUM (BEAKER) (test code = 3.6 meq/L 3.6-5.5 379) SODIUM NA-STAT [id number] 17:15:05 Test Item Value Reference Range Interpretation Comments SODIUM (BEAKER) (test code = 381) 138 meq/L 136-145 LACTIC ACID, [id number] 15:47:03 Test Item Value Reference Range Interpretation Comments LACTATE BLOOD 5.7 mmol/L 0.5-2.2 HH Specimen moder ately ARTERIAL (2) (BEAKER) hemoly zed (test code = 2874) [employer] Inspector ID - MARZENA MBASIC METABOLIC [id number] 15:45:08 Test Item Value Reference Range Interpretation Comments SODIUM (BEAKER) 139 meq/L 136-145 (test code = 381) POTASSIUM (BEAKER) 4.0 meq/L 3.5-5.1 Specimen slightly (test code = 379) hemolyzed CHLORIDE (BEAKER) 109 meq/L 98-107 H (test code = 382) CO2 (BEAKER) (test 21 meq/L 22-29 L code = 355) BLOOD UREA NITROGEN 14 mg/dL 7-21 (BEAKER) (test code = 354) CREATININE (BEAKER) 1.01 mg/dL 0.57-1.25 Specimen slightly (test code = 358) hemolyzed GLUCOSE RANDOM 174 mg/dL 70-105 H (BEAKER) (test code = 652) CALCIUM (BEAKER) 8.9 mg/dL 8.4-10.2 (test code = 697) EGFR (BEAKER) (test 71 mL/min/1.73 ESTIMA LA GFR IS code = 1092) sq m NOT ACCURATE CREATININE CLEARANCE IN PREDICTING GLOMERULAR FILTRATION RATE . ESTIMATED GFR I S NOT APPLICABLE FOR DIALYSIS PATIEN TS. [employer] Inspector ID - MARZENA [id number] 15:45:07 Test Item Value Reference Range Interpretation Comments PHOSPHORUS (BEAKER) 3.1 mg/dL 2.3-4.7 Specimen slightly (test code = 604) hemolyzed [employer] Inspector ID - MARZENA [id number] 15:45:06 Test Item Value Reference Range Interpretation Comments MAGNESIUM (BEAKER) 2.9 mg/dL 1.6-2.6 H Specimen slightly (test code = 627) hemolyzed [employer] Inspector ID - MARZENA MCBC W/PLT COUNT & AUTO [id number] 15:40:58 Test Item Value Reference Range Interpretation Comments WHITE BLOOD CELL COUNT (BEAKER) 17.0 K/ L 3.5-10.5 H (test code = 775) RED BLOOD CELL COUNT (BEAKER) 3.28 M/ L 4.63-6.08 L (test code = 761) HEMOGLOBIN (BEAKER) (test code = 8.4 GM/DL 13.7-17.5 L 410) HEMATOCRIT (BEAKER) (test code = 28.2 % 40.1-51.0 L 411) MEAN CORPUSCULAR VOLUME (BEAKER) 86.0 fL 79.0-92.2 (test code = 753) MEAN CORPUSCULAR HEMOGLOBIN 25.6 pg 25.7-32.2 L (BEAKER) (test code = 751) MEAN CORPUSCULAR HEMOGLOBIN CONC 29.8 GM/DL 32.3-36.5 L (BEAKER) (test code = 752) RED CELL DISTRIBUTION WIDTH 20.4 % 11.6-14.4 H (BEAKER) (test code = 412) PLATELET COUNT (BEAKER) (test 173 K/CU MM 150-450 code = 756) MEAN PLATELET VOLUME (BEAKER) 10.8 fL 9.4-12.4 (test code = 754) NUCLEATED RED BLOOD CELLS 0 /100 WBC 0-0 (BEAKER) (test code = 413) NEUTROPHILS RELATIVE PERCENT 84 % (BEAKER) (test code = 429) LYMPHOCYTES RELATIVE PERCENT 9 % (BEAKER) (test code = 430) MONOCYTES RELATIVE PERCENT 6 % (BEAKER) (test code = 431) EOSINOPHILS RELATIVE PERCENT 0 % (BEAKER) (test code = 432) BASOPHILS RELATIVE PERCENT 0 % (BEAKER) (test code = 437) NEUTROPHILS ABSOLUTE COUNT 14.25 K/ L 1.78-5.38 H (BEAKER) (test code = 670) LYMPHOCYTES ABSOLUTE COUNT 1.57 K/ L 1.32-3.57 (BEAKER) (test code = 414) MONOCYTES ABSOLUTE COUNT (BEAKER) 0.95 K/ L 0.30-0.82 H (test code = 415) EOSINOPHILS ABSOLUTE COUNT 0.03 K/ L 0.04-0.54 L (BEAKER) (test code = 416) BASOPHILS ABSOLUTE COUNT (BEAKER) 0.02 K/ L 0.01-0.08 (test code = 417) IMMATURE GRANULOCYTES-RELATIVE 1 % 0-1 PERCENT (BEAKER) (test code = 2801) [id number] 15:37:40 Test Item Value Reference Range Interpretation Comments PROTIME (BEAKER) (test 18.7 seconds 11.9-14.2 H code = 759) INR (BEAKER) (test 1.58 See_Comment [Automat ed code = 370) message] [...] is 2.5-3.5 for patients with mechanical heart valves.[id number] 15:37:05 Test Item Value Reference Range Interpretation Comments FIBRINOGEN LEVEL (BEAKER) (test 466 mg/dl 225-434 H code = 658) PROTHROMBIN [id number] 15:36:48 Test Item Value Reference Range Interpretation Comments PROTIME (BEAKER) 18.7 seconds 11.9-14.2 H (test code = 759) INR (BEAKER) (test 1.58 See_Comment [Automat ed message] code = 370) The system [employer] generated this result transmitted ref erence range: <=5.90. The reference range was not used to int erpret this result as normal/abnormal . RECOMMENDED COUMADIN/WARFARIN INR THERAPY RANGESSTANDARD DOSE: 2.0 - 3.0 Includes: PROPHYLAXIS forvenous thrombosis, systemic embolization; TREATMENT for venous thrombosis and/or pulmonary embolus.HIGH RISK: Target INR is 2.5-3.5 for patients with mechanical heart valves.BLOOD GAS, [id number] 15:31:17 Test Item Value Reference Range Interpretation Comments PH ARTERIAL (BEAKER) (test code = 7.35 7.35-7.45 383) PCO2 ARTERIAL (BEAKER) (test code 38 mm Hg 35-45 = 384) PO2 ARTERIAL (BEAKER) (test code 78 mm Hg 80-90 L = 385) O2 SATURATION ARTERIAL (BEAKER) 95.1 % 96.0-97.0 L (test code = 386) HCO3 ARTERIAL (BEAKER) (test code 21 mmol/L 21-29 = 388) BASE EXCESS ARTERIAL (BEAKER) -4.7 mmol/L -2.0-3.0 L (test code = 387) PATIENT TEMPERATURE (BEAKER) 37.0 (test code = 1818) FIO2 (BEAKER) (test code = 1819) 60.0 OXYGEN SATURATION, [id number] 15:30:38 Test Item Value Reference Range Interpretation Comments O2 SATURATION (MEASURED) (BEAKER) 66.2 % (test code = 1455) RAD, CHEST, 1 VIEW, NON [id number] 15:30:00Reason for exam:->Status post CV Surgery post op day 0Should this be performed at the bedside?->Yes [facility] 1945 Sex: MFINAL REPORT Chest dated 09/07/2021 COMPARISON: September 05, 2021 Clinical Information: Status post CV Surgery post op day 0 Comment: Heart is enlarged. Pulmonary vasculature is indistinct. Airspace disease is seen bilaterally suggestive of pulmonary edema. Endotracheal tube, nasogastric tube, Mober[place]-Glen catheter, and right chest tube are present. No pneumothorax is seen. Signed: Halley Khan Verified Date/Time: 09/07/2021 15:30:25 Reading Location: [facility] Radiology Reading Room [id number] 14:14:33 Test Item Value Reference Range Interpretation Comments PHOSPHORUS (BEAKER) (test code = 3.5 mg/dL 2.3-4.7 604) [employer] Inspector ID - BSCBC W/PLT COUNT & AUTO [id number] 13:56:03 Test Item Value Reference Range Interpretation Comments WHITE BLOOD CELL COUNT (BEAKER) 16.2 K/ L 3.5-10.5 H (test code = 775) RED BLOOD CELL COUNT (BEAKER) 2.78 M/ L 4.63-6.08 L (test code = 761) HEMOGLOBIN (BEAKER) (test code = 7.2 GM/DL 13.7-17.5 L 410) HEMATOCRIT (BEAKER) (test code = 24.0 % 40.1-51.0 L 411) MEAN CORPUSCULAR VOLUME (BEAKER) 86.3 fL 79.0-92.2 (test code = 753) MEAN CORPUSCULAR HEMOGLOBIN 25.9 pg 25.7-32.2 (BEAKER) (test code = 751) MEAN CORPUSCULAR HEMOGLOBIN CONC 30.0 GM/DL 32.3-36.5 L (BEAKER) (test code = 752) RED CELL DISTRIBUTION WIDTH 20.1 % 11.6-14.4 H (BEAKER) (test code = 412) PLATELET COUNT (BEAKER) (test 126 K/CU MM 150-450 L code = 756) MEAN PLATELET VOLUME (BEAKER) 10.5 fL 9.4-12.4 (test code = 754) NUCLEATED RED BLOOD CELLS 0 /100 WBC 0-0 (BEAKER) (test code = 413) NEUTROPHILS RELATIVE PERCENT 81 % (BEAKER) (test code = 429) LYMPHOCYTES RELATIVE PERCENT 16 % (BEAKER) (test code = 430) MONOCYTES RELATIVE PERCENT 1 % (BEAKER) (test code = 431) EOSINOPHILS RELATIVE PERCENT 1 % (BEAKER) (test code = 432) BASOPHILS RELATIVE PERCENT 0 % (BEAKER) (test code = 437) NEUTROPHILS ABSOLUTE COUNT 13.01 K/ L 1.78-5.38 H (BEAKER) (test code = 670) LYMPHOCYTES ABSOLUTE COUNT 2.66 K/ L 1.32-3.57 (BEAKER) (test code = 414) MONOCYTES ABSOLUTE COUNT (BEAKER) 0.15 K/ L 0.30-0.82 L (test code = 415) EOSINOPHILS ABSOLUTE COUNT 0.11 K/ L 0.04-0.54 (BEAKER) (test code = 416) BASOPHILS ABSOLUTE COUNT (BEAKER) 0.04 K/ L 0.01-0.08 (test code = 417) IMMATURE GRANULOCYTES-RELATIVE 1 % 0-1 PERCENT (BEAKER) (test code = 2801) [id number] 13:40:15 Test Item Value Reference Range Interpretation Comments PARTIAL THROMBOPLASTIN TIME 40.7 seconds 22.5-36.0 H (BEAKER) (test code = 760) [id number] 13:40:14 Test Item Value Reference Range Interpretation Comments FIBRINOGEN LEVEL (BEAKER) (test 374 mg/dl 225-434 code = 658) PROTHROMBIN [id number] 13:40:08 Test Item Value Reference Range Interpretation Comments PROTIME (BEAKER) 21.5 seconds 11.9-14.2 H (test code = 759) INR (BEAKER) (test 1.89 See_Comment [Automat ed message] code = 370) The system [employer] generated this result transmitted ref erence range: <=5.90. The reference range was not used to int erpret this result as normal/abnormal . RECOMMENDED COUMADIN/WARFARIN INR THERAPY RANGESSTANDARD DOSE: 2.0 - 3.0 Includes: PROPHYLAXIS forvenous thrombosis, systemic embolization; TREATMENT for venous thrombosis and/or pulmonary embolus.HIGH RISK: Target INR is 2.5-3.5 for patients with mechanical heart valves.CALCIUM, [id number] 13:38:49 Test Item Value Reference Range Interpretation Comments CALCIUM IONIZED (BEAKER) (test 1.13 mmol/L 1.12-1.27 code = 698) PH, BLOOD (BEAKER) (test code = 7.35 1810) GLUCOSE-STAT [id number] 13:37:55 Test Item Value Reference Range Interpretation Comments GLUCOSE RANDOM (BEAKER) (test code 187 mg/dL 70-110 H = 652) HGB/HCT (H&H) - STAT [id number] 13:37:55 Test Item Value Reference Range Interpretation Comments HEMOGLOBIN (BEAKER) (test code = 8.0 GM/DL 13.0-16.8 L 410) HEMATOCRIT (BEAKER) (test code = 24.0 % 40.0-50.0 L 411) BLOOD GAS, [id number] 13:37:54 Test Item Value Reference Range Interpretation Comments PH ARTERIAL (BEAKER) (test code = 7.37 7.35-7.45 383) PCO2 ARTERIAL (BEAKER) (test code 36 mm Hg 35-45 = 384) PO2 ARTERIAL (BEAKER) (test code 256 mm Hg 80-90 H = 385) O2 SATURATION ARTERIAL (BEAKER) 99.6 % 96.0-97.0 H (test code = 386) HCO3 ARTERIAL (BEAKER) (test code 20 mmol/L 21-29 L = 388) BASE EXCESS ARTERIAL (BEAKER) -4.8 mmol/L -2.0-3.0 L (test code = 387) PATIENT TEMPERATURE (BEAKER) 36.0 (test code = 1818) FIO2 (BEAKER) (test code = 1819) 94.0 SODIUM NA-STAT [id number] 13:37:41 Test Item Value Reference Range Interpretation Comments SODIUM (BEAKER) (test code = 381) 135 meq/L 136-145 L POTASSIUM-STAT [id number] 13:37:41 Test Item Value Reference Range Interpretation Comments POTASSIUM (BEAKER) (test code = 3.6 meq/L 3.6-5.5 379) PLATELET [id number] 13:30:37 Test Item Value Reference Range Interpretation Comments PLATELET COUNT (BEAKER) (test 136 K/CU MM 150-450 L code = 756) [employer] Inspector ID - [id number], [id number] 13:24:01 Test Item Value Reference Range Interpretation Comments CALCIUM IONIZED (BEAKER) (test 1.23 mmol/L 1.12-1.27 code = 698) PH, BLOOD (BEAKER) (test code = 7.35 1810) HGB/HCT (H&H) - STAT [id number] 13:23:58 Test Item Value Reference Range Interpretation Comments HEMOGLOBIN (BEAKER) (test code = 8.2 GM/DL 13.0-16.8 L 410) HEMATOCRIT (BEAKER) (test code = 24.0 % 40.0-50.0 L 411) GLUCOSE-STAT [id number] 13:23:57 Test Item Value Reference Range Interpretation Comments GLUCOSE RANDOM (BEAKER) (test code 212 mg/dL 70-110 H = 652) BLOOD GAS, [id number] 13:23:56 Test Item Value Reference Range Interpretation Comments PH ARTERIAL (BEAKER) (test code = 7.36 7.35-7.45 383) PCO2 ARTERIAL (BEAKER) (test code 40 mm Hg 35-45 = 384) PO2 ARTERIAL (BEAKER) (test code 60 mm Hg 80-90 L = 385) O2 SATURATION ARTERIAL (BEAKER) 91.6 % 96.0-97.0 L (test code = 386) HCO3 ARTERIAL (BEAKER) (test code 23 mmol/L 21-29 = 388) BASE EXCESS ARTERIAL (BEAKER) -2.7 mmol/L -2.0-3.0 L (test code = 387) PATIENT TEMPERATURE (BEAKER) 35.9 (test code = 1818) FIO2 (BEAKER) (test code = 1819) 100.0 POTASSIUM-STAT [id number] 13:23:26 Test Item Value Reference Range Interpretation Comments POTASSIUM (BEAKER) (test code = 3.9 meq/L 3.6-5.5 379) SODIUM NA-STAT [id number] 13:23:25 Test Item Value Reference Range Interpretation Comments SODIUM (BEAKER) (test code = 381) 135 meq/L 136-145 L GLUCOSE-STAT [id number] 12:29:15 Test Item Value Reference Range Interpretation Comments GLUCOSE RANDOM (BEAKER) (test code 181 mg/dL 70-110 H = 652) HGB/HCT (H&H) - STAT [id number] 12:29:15 Test Item Value Reference Range Interpretation Comments HEMOGLOBIN (BEAKER) (test code = 8.3 GM/DL 13.0-16.8 L 410) HEMATOCRIT (BEAKER) (test code = 24.0 % 40.0-50.0 L 411) SODIUM NA-STAT [id number] 12:29:14 Test Item Value Reference Range Interpretation Comments SODIUM (BEAKER) (test code = 381) 133 meq/L 136-145 L BLOOD GAS, [id number] 12:29:13 Test Item Value Reference Range Interpretation Comments PH ARTERIAL (BEAKER) (test code = 7.40 7.35-7.45 383) PCO2 ARTERIAL (BEAKER) (test code 38 mm Hg 35-45 = 384) PO2 ARTERIAL (BEAKER) (test code 316 mm Hg 80-90 H = 385) O2 SATURATION ARTERIAL (BEAKER) 99.7 % 96.0-97.0 H (test code = 386) HCO3 ARTERIAL (BEAKER) (test code 24 mmol/L 21-29 = 388) BASE EXCESS ARTERIAL (BEAKER) -1.9 mmol/L -2.0-3.0 (test code = 387) PATIENT TEMPERATURE (BEAKER) 33.9 (test code = 1818) FIO2 (BEAKER) (test code = 1819) 70.0 POTASSIUM-STAT [id number] 12:23:50 Test Item Value Reference Range Interpretation Comments POTASSIUM (BEAKER) (test code = 5.4 meq/L 3.6-5.5 379) HGB/HCT (H&H) - STAT [id number] 12:19:25 Test Item Value Reference Range Interpretation Comments HEMOGLOBIN (BEAKER) (test code = 7.8 GM/DL 13.0-16.8 L 410) HEMATOCRIT (BEAKER) (test code = 23.0 % 40.0-50.0 L 411) GLUCOSE-STAT [id number] 12:19:24 Test Item Value Reference Range Interpretation Comments GLUCOSE RANDOM (BEAKER) (test code 185 mg/dL 70-110 H = 652) BLOOD GAS, [id number] 12:19:23 Test Item Value Reference Range Interpretation Comments PH ARTERIAL (BEAKER) (test code = 7.34 7.35-7.45 L 383) PCO2 ARTERIAL (BEAKER) (test code 43 mm Hg 35-45 = 384) PO2 ARTERIAL (BEAKER) (test code 275 mm Hg 80-90 H = 385) O2 SATURATION ARTERIAL (BEAKER) 99.6 % 96.0-97.0 H (test code = 386) HCO3 ARTERIAL (BEAKER) (test code 24 mmol/L 21-29 = 388) BASE EXCESS ARTERIAL (BEAKER) -2.5 mmol/L -2.0-3.0 L (test code = 387) PATIENT TEMPERATURE (BEAKER) 34.2 (test code = 1818) FIO2 (BEAKER) (test code = 1819) 70.0 SODIUM NA-STAT [id number] 12:19:23 Test Item Value Reference Range Interpretation Comments SODIUM (BEAKER) (test code = 381) 132 meq/L 136-145 L POTASSIUM-STAT [id number] 12:19:10 Test Item Value Reference Range Interpretation Comments POTASSIUM (BEAKER) (test code = 5.1 meq/L 3.6-5.5 379) HEMOGLOBIN [id number] 12:09:07 Test Item Value Reference Range Interpretation Comments HEMOGLOBIN A1C 5.0 % See_Comment [Automated m essage] ELECTROPHORESIS (BEAKER) The system which (test code = 3811) generated this result transmitted ref erence range: <=5.6%. The reference range was not used to int erpret this result as normal/abnormal . "The A1c is measured using a NGSP-certified method. HbA1c value equal to or greater than 6.5% as thediagnosis cutoff for diabetes. An HbA1c value of 5.7- 6.4% indicates increased risk for diabetes (prediabetes)."[employer]lasses Inspector ID - ADM LACTIC ACID, [id number] 12:07:07 Test Item Value Reference Range Interpretation Comments LACTATE BLOOD 1.0 mmol/L 0.5-2.2 Specimen sligh tly ARTERIAL (2) (BEAKER) hemoly zed (test code = 2874) [employer] Inspector ID - BSGLUCOSE-STAT [id number] 11:24:11 Test Item Value Reference Range Interpretation Comments GLUCOSE RANDOM (BEAKER) (test code 191 mg/dL 70-110 H = 652) HGB/HCT (H&H) - STAT [id number] 11:24:11 Test Item Value Reference Range Interpretation Comments HEMOGLOBIN (BEAKER) (test code = 7.9 GM/DL 13.0-16.8 L 410) HEMATOCRIT (BEAKER) (test code = 23.0 % 40.0-50.0 L 411) SODIUM NA-STAT [id number] 11:24:10 Test Item Value Reference Range Interpretation Comments SODIUM (BEAKER) (test code = 381) 132 meq/L 136-145 L BLOOD GAS, [id number] 11:24:09 Test Item Value Reference Range Interpretation Comments PH ARTERIAL (BEAKER) (test code = 7.49 7.35-7.45 H 383) PCO2 ARTERIAL (BEAKER) (test code 30 mm Hg 35-45 L = 384) PO2 ARTERIAL (BEAKER) (test code 376 mm Hg 80-90 H = 385) O2 SATURATION ARTERIAL (BEAKER) 99.8 % 96.0-97.0 H (test code = 386) HCO3 ARTERIAL (BEAKER) (test code 24 mmol/L 21-29 = 388) BASE EXCESS ARTERIAL (BEAKER) -1.1 mmol/L -2.0-3.0 (test code = 387) PATIENT TEMPERATURE (BEAKER) 30.3 (test code = 1818) FIO2 (BEAKER) (test code = 1819) 80.0 LACTIC ACID, [id number] 11:12:30 Test Item Value Reference Range Interpretation Comments LACTATE BLOOD 1.1 mmol/L 0.5-2.2 Specimen sligh tly ARTERIAL (2) (BEAKER) hemoly zed (test code = 2874) [employer] Inspector ID - BSPOTASSIUM-STAT [id number] 11:12:12 Test Item Value Reference Range Interpretation Comments POTASSIUM (BEAKER) (test code = 4.6 meq/L 3.6-5.5 379) HGB/HCT (H&H) - STAT [id number] 10:59:07 Test Item Value Reference Range Interpretation Comments HEMOGLOBIN (BEAKER) (test code = 8.9 GM/DL 13.0-16.8 L 410) HEMATOCRIT (BEAKER) (test code = 26.0 % 40.0-50.0 L 411) GLUCOSE-STAT [id number] 10:59:06 Test Item Value Reference Range Interpretation Comments GLUCOSE RANDOM (BEAKER) (test code 153 mg/dL 70-110 H = 652) SODIUM NA-STAT [id number] 10:59:05 Test Item Value Reference Range Interpretation Comments SODIUM (BEAKER) (test code = 381) 132 meq/L 136-145 L BLOOD GAS, [id number] 10:59:04 Test Item Value Reference Range Interpretation Comments PH ARTERIAL (BEAKER) (test code = 7.49 7.35-7.45 H 383) PCO2 ARTERIAL (BEAKER) (test code 29 mm Hg 35-45 L = 384) PO2 ARTERIAL (BEAKER) (test code 380 mm Hg 80-90 H = 385) O2 SATURATION ARTERIAL (BEAKER) 99.8 % 96.0-97.0 H (test code = 386) HCO3 ARTERIAL (BEAKER) (test code 23 mmol/L 21-29 = 388) BASE EXCESS ARTERIAL (BEAKER) -1.5 mmol/L -2.0-3.0 (test code = 387) PATIENT TEMPERATURE (BEAKER) 30.1 (test code = 1818) FIO2 (BEAKER) (test code = 1819) 80.0 POTASSIUM-STAT [id number] 10:58:12 Test Item Value Reference Range Interpretation Comments POTASSIUM (BEAKER) (test code = 5.3 meq/L 3.6-5.5 379) HGB/HCT (H&H) - STAT [id number] 08:47:12 Test Item Value Reference Range Interpretation Comments HEMOGLOBIN (BEAKER) (test code = 9.5 GM/DL 13.0-16.8 L 410) HEMATOCRIT (BEAKER) (test code = 28.0 % 40.0-50.0 L 411) GLUCOSE-STAT [id number] 08:47:11 Test Item Value Reference Range Interpretation Comments GLUCOSE RANDOM (BEAKER) (test code 121 mg/dL 70-110 H = 652) BLOOD GAS, [id number] 08:47:10 Test Item Value Reference Range Interpretation Comments PH ARTERIAL (BEAKER) (test code = 7.47 7.35-7.45 H 383) PCO2 ARTERIAL (BEAKER) (test code 34 mm Hg 35-45 L = 384) PO2 ARTERIAL (BEAKER) (test code = 271 mm Hg 80-90 H 385) O2 SATURATION ARTERIAL (BEAKER) 99.7 % 96.0-97.0 H (test code = 386) HCO3 ARTERIAL (BEAKER) (test code 25 mmol/L 21-29 = 388) BASE EXCESS ARTERIAL (BEAKER) 0.8 mmol/L -2.0-3.0 (test code = 387) PATIENT TEMPERATURE (BEAKER) (test 36.4 code = 1818) FIO2 (BEAKER) (test code = 1819) 95.0 CALCIUM, [id number] 08:46:35 Test Item Value Reference Range Interpretation Comments CALCIUM IONIZED (BEAKER) (test 1.12 mmol/L 1.12-1.27 code = 698) PH, BLOOD (BEAKER) (test code = 7.46 1810) POTASSIUM-STAT [id number] 08:46:14 Test Item Value Reference Range Interpretation Comments POTASSIUM (BEAKER) (test code = 3.7 meq/L 3.6-5.5 379) SODIUM NA-STAT [id number] 08:46:13 Test Item Value Reference Range Interpretation Comments SODIUM (BEAKER) (test code = 381) 135 meq/L 136-145 L [id number] 05:26:11 Test Item Value Reference Range Interpretation Comments THYROID STIMULATING HORMONE 1.491 uIU/mL 0.350-4.940 (BEAKER) (test code = 772) [employer] Inspector ID - MARZENA MLIPID [id number] 04:13:29 Test Item Value Reference Range Interpretation Comments TRIGLYCERIDES (BEAKER) (test code = 49 mg/dL 540) CHOLESTEROL (BEAKER) (test code = 92 mg/dL 631) HDL CHOLESTEROL (BEAKER) (test code 43 mg/dL = 976) LDL CHOLESTEROL CALCULATED (BEAKER) 39 mg/dL (test code = 633) Triglyceride Reference Range: Low Risk <150 Borderline 150-199 High Risk 200-499 Very High Risk >=500Cholesterol Reference Range: Low Risk <200 Borderline 200-239 High Risk >240HDL Cholesterol Reference Range: Low Risk >=60 High Risk <40LDL Cholesterol Reference Range: Optimal <100 Near Optimal 100-129 Borderline 130-159 High 160-189 Very High >=190 [employer] Inspector ID - BSOperator ID - BSCBC W/PLT COUNT & AUTO [id number] 03:49:38 Test Item Value Reference Range Interpretation Comments WHITE BLOOD CELL COUNT (BEAKER) 6.1 K/ L 3.5-10.5 (test code = 775) RED BLOOD CELL COUNT (BEAKER) 3.41 M/ L 4.63-6.08 L (test code = 761) HEMOGLOBIN (BEAKER) (test code = 8.5 GM/DL 13.7-17.5 L 410) HEMATOCRIT (BEAKER) (test code = 28.9 % 40.1-51.0 L 411) MEAN CORPUSCULAR VOLUME (BEAKER) 84.8 fL 79.0-92.2 (test code = 753) MEAN CORPUSCULAR HEMOGLOBIN 24.9 pg 25.7-32.2 L (BEAKER) (test code = 751) MEAN CORPUSCULAR HEMOGLOBIN CONC 29.4 GM/DL 32.3-36.5 L (BEAKER) (test code = 752) RED CELL DISTRIBUTION WIDTH 20.3 % 11.6-14.4 H (BEAKER) (test code = 412) PLATELET COUNT (BEAKER) (test 281 K/CU MM 150-450 code = 756) MEAN PLATELET VOLUME (BEAKER) 9.9 fL 9.4-12.4 (test code = 754) NUCLEATED RED BLOOD CELLS 0 /100 WBC 0-0 (BEAKER) (test code = 413) NEUTROPHILS RELATIVE PERCENT 64 % (BEAKER) (test code = 429) LYMPHOCYTES RELATIVE PERCENT 25 % (BEAKER) (test code = 430) MONOCYTES RELATIVE PERCENT 8 % (BEAKER) (test code = 431) EOSINOPHILS RELATIVE PERCENT 2 % (BEAKER) (test code = 432) BASOPHILS RELATIVE PERCENT 1 % (BEAKER) (test code = 437) NEUTROPHILS ABSOLUTE COUNT 3.92 K/ L 1.78-5.38 (BEAKER) (test code = 670) LYMPHOCYTES ABSOLUTE COUNT 1.53 K/ L 1.32-3.57 (BEAKER) (test code = 414) MONOCYTES ABSOLUTE COUNT (BEAKER) 0.48 K/ L 0.30-0.82 (test code = 415) EOSINOPHILS ABSOLUTE COUNT 0.12 K/ L 0.04-0.54 (BEAKER) (test code = 416) BASOPHILS ABSOLUTE COUNT (BEAKER) 0.03 K/ L 0.01-0.08 (test code = 417) IMMATURE GRANULOCYTES-RELATIVE 1 % 0-1 PERCENT (BEAKER) (test code = 2801) COMPREHENSIVE METABOLIC [id number] 03:30:53 Test Item Value Reference Range Interpretation Comments TOTAL PROTEIN 6.1 gm/dL 6.0-8.3 (BEAKER) (test code = 770) ALBUMIN (BEAKER) 3.6 g/dL 3.5-5.0 (test code = 1145) ALKALINE PHOSPHATASE 69 U/L 40-150 (BEAKER) (test code = 346) BILIRUBIN TOTAL 0.6 mg/dL 0.2-1.2 (BEAKER) (test code = 377) SODIUM (BEAKER) (test 136 meq/L 136-145 code = 381) POTASSIUM (BEAKER) 4.2 meq/L 3.5-5.1 (test code = 379) CHLORIDE (BEAKER) 102 meq/L 98-107 (test code = 382) CO2 (BEAKER) (test 26 meq/L 22-29 code = 355) BLOOD UREA NITROGEN 16 mg/dL 7-21 (BEAKER) (test code = 354) CREATININE (BEAKER) 1.01 mg/dL 0.57-1.25 (test code = 358) GLUCOSE RANDOM 97 mg/dL 70-105 (BEAKER) (test code = 652) CALCIUM (BEAKER) 9.7 mg/dL 8.4-10.2 (test code = 697) AST (SGOT) (BEAKER) 26 U/L 5-34 (test code = 353) ALT (SGPT) (BEAKER) 45 U/L 6-55 (test code = 347) EGFR (BEAKER) (test 71 mL/min/1.73 ESTIMA [place] GFR IS code = 1092) sq m NOT ACCURATE CREATININE CLEARANCE IN PREDICTING GLOMERULAR FILTRATION RATE . ESTIMATED GFR I S NOT APPLICABLE FOR DIALYSIS PATIEN TS. [employer] Inspector ID - [id number] 03:30:53 Test Item Value Reference Range Interpretation Comments MAGNESIUM (BEAKER) (test code = 2.3 mg/dL 1.6-2.6 627) [employer] Inspector ID - [id number] 03:22:52 Test Item Value Reference Range Interpretation Comments PARTIAL THROMBOPLASTIN TIME 67.2 seconds 22.5-36.0 H (BEAKER) (test code = 760) PROTHROMBIN [id number] 03:21:30 Test Item Value Reference Range Interpretation Comments PROTIME (BEAKER) 15.3 seconds 11.9-14.2 H (test code = 759) INR (BEAKER) (test 1.23 See_Comment [Automat ed message] code = 370) The system Spotistic generated this result transmitted ref erence range: <=5.90. The reference range was not used to int erpret this result as normal/abnormal . RECOMMENDED COUMADIN/WARFARIN INR THERAPY RANGESSTANDARD DOSE: 2.0 - 3.0 Includes: PROPHYLAXIS forvenous thrombosis, systemic embolization; TREATMENT for venous thrombosis and/or pulmonary embolus.HIGH RISK: Target INR is 2.5-3.5 for patients with mechanical heart valves.BLOOD GAS, [id number] 03:08:40 Test Item Value Reference Range Interpretation Comments PH VENOUS (BEAKER) (test code = 7.45 7.32-7.42 H 701) PCO2 VENOUS (BEAKER) (test code = 39 mm Hg 41-51 L 755) PO2 VENOUS (BEAKER) (test code = 46 mm Hg 25-40 H 702) O2 SATURATION VENOUS (BEAKER) 83.8 % 40.0-70.0 H (test code = 703) HCO3 VENOUS (BEAKER) (test code = 27 mmol/L 21-29 705) BASE EXCESS VENOUS (BEAKER) (test 2.6 mmol/L -2.0-3.0 code = 704) PATIENT TEMPERATURE (BEAKER) (test 37.0 code = 1818) FIO2 (BEAKER) (test code = 1819) 21.0 POCT-GLUCOSE [id number] 21:21:10 Test Item Value Reference Range Interpretation Comments POC-GLUCOSE METER 163 mg/dL 70-110 H : TESTED A T [facility] 6720 (BEAKER) [facility] [address]: Clip On Sunglasses Inspector/Techni bart ID = [id number] for GLORIA VALDERRAMA PROTHROMBIN [id number] 20:13:27 Test Item Value Reference Range Interpretation Comments PROTIME (BRAXTON) 15.3 seconds 11.9-14.2 H (test code = 759) INR (ELINABANNER) (test 1.23 See_Comment [Automat ed message] code = 370) The system Spotistic generated this result transmitted ref erence range: <=5.90. The reference range was not used to int erpret this result as normal/abnormal . RECOMMENDED COUMADIN/WARFARIN INR THERAPY RANGESSTANDARD DOSE: 2.0 - 3.0 Includes: PROPHYLAXIS forvenous thrombosis, systemic embolization; TREATMENT for venous thrombosis and/or pulmonary embolus.HIGH RISK: Target INR is 2.5-3.5 for patients with mechanical heart valves.[id number] 18:18:05 Test Item Value Reference Range Interpretation Comments PARTIAL THROMBOPLASTIN TIME 65.4 seconds 22.5-36.0 H ([facility]) (test code = 760) POCT-GLUCOSE [id number] 17:26:15 Test Item Value Reference Range Interpretation Comments POC-GLUCOSE METER 146 mg/dL 70-110 H : Notified RN/MD: (BRAXTON) (test code = TESTED AT [place] [address]) [facility], [address]: Clip On Sunglasses Inspector/Techni bart ID = [id number] for LL OYD, TIKEYA POCT-GLUCOSE [id number] 11:21:58 Test Item Value Reference Range Interpretation Comments POC-GLUCOSE METER 142 mg/dL 70-110 H : Notified RN/MD: (BRAXTON) (test code = TESTED AT [place] [address]) [facility], [address]: Clip On Sunglasses Inspector/Techni bart ID = [id number] for LL OYD, TIKEYA [id number] 11:20:08 Test Item Value Reference Range Interpretation Comments PARTIAL THROMBOPLASTIN TIME 78.4 seconds 22.5-36.0 H (ELINABANNER) (test code = 760) POCT-GLUCOSE [id number] 08:18:13 Test Item Value Reference Range Interpretation Comments POC-GLUCOSE METER 154 mg/dL 70-110 H : Notified RN/MD: (BRAXTON) (test code = TESTED AT [facility] [address]) [place], [address]: Clip On Sunglasses Inspector/Techni bart ID = [id number] for GODWIN FLOYD [id number] 06:28:05 Test Item Value Reference Range Interpretation Comments MAGNESIUM (BEAKER) (test code = 2.2 mg/dL 1.6-2.6 627) Clip On Sunglasses Inspector ID - KEARA WBASIC METABOLIC [id number] 06:28:04 Test Item Value Reference Range Interpretation Comments SODIUM (BEAKER) 138 meq/L 136-145 (test code = 381) POTASSIUM (BEAKER) 4.1 meq/L 3.5-5.1 (test code = 379) CHLORIDE (BEAKER) 104 meq/L 98-107 (test code = 382) CO2 (BEAKER) (test 25 meq/L 22-29 code = 355) BLOOD UREA NITROGEN 12 mg/dL 7-21 (BEAKER) (test code = 354) CREATININE (BEAKER) 0.95 mg/dL 0.57-1.25 (test code = 358) GLUCOSE RANDOM 90 mg/dL 70-105 (BEAKER) (test code = 652) CALCIUM (BEAKER) 9.1 mg/dL 8.4-10.2 (test code = 697) EGFR (BEAKER) (test 77 mL/min/1.73 ESTIMA LA GFR IS code = 1092) sq m NOT ACCURATE CREATININE CLEARANCE IN PREDICTING GLOMERULAR FILTRATION RATE . ESTIMATED GFR I S NOT APPLICABLE FOR DIALYSIS PATIEN TS. Clip On Sunglasses Inspector ID - KEARA WCBC W/PLT COUNT & AUTO [id number] 05:57:11 Test Item Value Reference Range Interpretation Comments WHITE BLOOD CELL COUNT (BEAKER) 6.3 K/ L 3.5-10.5 (test code = 775) RED BLOOD CELL COUNT (BEAKER) 3.43 M/ L 4.63-6.08 L (test code = 761) HEMOGLOBIN (BEAKER) (test code = 8.5 GM/DL 13.7-17.5 L 410) HEMATOCRIT (BEAKER) (test code = 28.8 % 40.1-51.0 L 411) MEAN CORPUSCULAR VOLUME (BEAKER) 84.0 fL 79.0-92.2 (test code = 753) MEAN CORPUSCULAR HEMOGLOBIN 24.8 pg 25.7-32.2 L (BEAKER) (test code = 751) MEAN CORPUSCULAR HEMOGLOBIN CONC 29.5 GM/DL 32.3-36.5 L (BEAKER) (test code = 752) RED CELL DISTRIBUTION WIDTH 20.2 % 11.6-14.4 H (BEAKER) (test code = 412) PLATELET COUNT (BEAKER) (test 327 K/CU MM 150-450 code = 756) MEAN PLATELET VOLUME (BEAKER) 11.5 fL 9.4-12.4 (test code = 754) NUCLEATED RED BLOOD CELLS 0 /100 WBC 0-0 (BEAKER) (test code = 413) NEUTROPHILS RELATIVE PERCENT 70 % (BEAKER) (test code = 429) LYMPHOCYTES RELATIVE PERCENT 19 % (BEAKER) (test code = 430) MONOCYTES RELATIVE PERCENT 9 % (BEAKER) (test code = 431) EOSINOPHILS RELATIVE PERCENT 2 % (BEAKER) (test code = 432) BASOPHILS RELATIVE PERCENT 1 % (BEAKER) (test code = 437) NEUTROPHILS ABSOLUTE COUNT 4.40 K/ L 1.78-5.38 (BEAKER) (test code = 670) LYMPHOCYTES ABSOLUTE COUNT 1.19 K/ L 1.32-3.57 L (BEAKER) (test code = 414) MONOCYTES ABSOLUTE COUNT (BEAKER) 0.56 K/ L 0.30-0.82 (test code = 415) EOSINOPHILS ABSOLUTE COUNT 0.10 K/ L 0.04-0.54 (BEAKER) (test code = 416) BASOPHILS ABSOLUTE COUNT (BEAKER) 0.03 K/ L 0.01-0.08 (test code = 417) IMMATURE GRANULOCYTES-RELATIVE 0 % 0-1 PERCENT (BEAKER) (test code = 2801) [id number] 05:39:02 Test Item Value Reference Range Interpretation Comments PARTIAL THROMBOPLASTIN TIME 55.5 seconds 22.5-36.0 H (BEAKER) (test code = 760) BLOOD GAS, [id number] 05:24:42 Test Item Value Reference Range Interpretation Comments PH VENOUS (BEAKER) (test code = 7.46 7.32-7.42 H 701) PCO2 VENOUS (BEAKER) (test code = 39 mm Hg 41-51 L 755) PO2 VENOUS (BEAKER) (test code = 52 mm Hg 25-40 H 702) O2 SATURATION VENOUS (BEAKER) 88.9 % 40.0-70.0 H (test code = 703) HCO3 VENOUS (BEAKER) (test code = 27 mmol/L 21-29 705) BASE EXCESS VENOUS (BEAKER) (test 2.9 mmol/L -2.0-3.0 code = 704) PATIENT TEMPERATURE (BEAKER) (test 37.0 code = 1818) FIO2 (BEAKER) (test code = 1819) 21.0 [id number] 23:08:23 Test Item Value Reference Range Interpretation Comments PARTIAL THROMBOPLASTIN TIME 55.5 seconds 22.5-36.0 H (BEAKER) (test code = 760) POCT-GLUCOSE [id number] 21:56:54 Test Item Value Reference Range Interpretation Comments POC-GLUCOSE METER 108 mg/dL 70-110 : TESTED A T [facility] 6720 (BEAKER) (test code = [facility], 1538) [address]: Clip On Sunglasses Inspector/Techni bart ID = [id number] for Sharon Sol POCT-GLUCOSE [id number] 17:16:14 Test Item Value Reference Range Interpretation Comments POC-GLUCOSE METER 112 mg/dL 70-110 H : TESTED A T [facility] 6720 (BEAKER) (test code = [facility], 1538) [address]: Clip On Sunglasses Inspector/Techni bart ID = [id number] for PHU NICOLE NAHED B-TYPE NATRIURETIC FACTOR (BNP)[id number] 17:13:19 Test Item Value Reference Range Interpretation Comments B-TYPE NATRIURETIC PEPTIDE (BEAKER) 427 pg/mL 0-100 H (test code = 700) Clip On Sunglasses Inspector ID - [id number] 17:08:24 Test Item Value Reference Range Interpretation Comments MAGNESIUM (BEAKER) (test code = 2.3 mg/dL 1.6-2.6 627) Clip On Sunglasses Inspector ID - BSBASIC METABOLIC [id number] 17:08:23 Test Item Value Reference Range Interpretation Comments SODIUM (BEAKER) 137 meq/L 136-145 (test code = 381) POTASSIUM (BEAKER) 4.1 meq/L 3.5-5.1 (test code = 379) CHLORIDE (BEAKER) 104 meq/L 98-107 (test code = 382) CO2 (BEAKER) (test 28 meq/L 22-29 code = 355) BLOOD UREA NITROGEN 14 mg/dL 7-21 (BEAKER) (test code = 354) CREATININE (BEAKER) 1.09 mg/dL 0.57-1.25 (test code = 358) GLUCOSE RANDOM 107 mg/dL 70-105 H (BEAKER) (test code = 652) CALCIUM (BEAKER) 8.8 mg/dL 8.4-10.2 (test code = 697) EGFR (BEAKER) (test 65 mL/min/1.73 ESTIMA LA GFR IS code = 1092) sq m NOT ACCURATE CREATININE CLEARANCE IN PREDICTING GLOMERULAR FILTRATION RATE . ESTIMATED GFR I S NOT APPLICABLE FOR DIALYSIS PATIEN TS. Clip On Sunglasses Inspector ID - [id number] 16:56:34 Test Item Value Reference Range Interpretation Comments PARTIAL THROMBOPLASTIN TIME 78.6 seconds 22.5-36.0 H (BEAKER) (test code = 760) POCT-GLUCOSE [id number] 11:40:10 Test Item Value Reference Range Interpretation Comments POC-GLUCOSE METER 123 mg/dL 70-110 H : TESTED A T [facility] 6720 ([facility]) (test code = [facility], 1538) [address]: Clip On Sunglasses Inspector/Techni bart ID = [id number] for HERIBERTO BROWN [id number] 08:48:28 Test Item Value Reference Range Interpretation Comments PARTIAL THROMBOPLASTIN TIME 50.1 seconds 22.5-36.0 H (AKER) (test code = 760) POCT-GLUCOSE [id number] 08:33:40 Test Item Value Reference Range Interpretation Comments POC-GLUCOSE METER 83 mg/dL 70-110 : TESTED A T [facility] 6720 ([facility]) (test code = [facility], 1538) [address]: Clip On Sunglasses Inspector/Techni bart ID = [id number] for NAHED JOHN [id number] 05:35:19 Test Item Value Reference Range Interpretation Comments PARTIAL THROMBOPLASTIN TIME > seconds 22.5-36.0 HH (BEAKER) (test code = 760) RAD, CHEST, 1 VIEW, NON [id number] 05:07:00Reason for exam:->Respiratory failureShould this be performed at the bedside?->Yes [facility] 1945 Sex: MFINAL REPORT RAD, CHEST, 1 VIEW, NON DEPT INDICATION: Respiratory failure COMPARISON: Prior day's exam FINDINGS: Portable frontal view of the chest. IMPRESSION: Lungs and pleura: Bilateral pulmonary opacities are reduced. No pneumothorax.Heart and mediastinum: Stable contours. Additional findings: None. Signed: Link Pak MDReport Verified Date/Time: 09/05/2021 05:07:55 [id number] 05:06:53 Test Item Value Reference Range Interpretation Comments MAGNESIUM (BEAKER) (test code = 2.3 mg/dL 1.6-2.6 627) Clip On Sunglasses Inspector ID - SHANE GBASIC METABOLIC [id number] 05:06:52 Test Item Value Reference Range Interpretation Comments [...] 0.57-1.25 (test code = 358) GLUCOSE RANDOM 83 mg/dL 70-105 (BEAKER) (test code = 652) CALCIUM (BEAKER) 9.2 mg/dL 8.4-10.2 (test code = 697) EGFR (BEAKER) (test 71 mL/min/1.73 ESTIMA LA GFR IS code = 1092) sq m NOT ACCURATE CREATININE CLEARANCE IN PREDICTING GLOMERULAR FILTRATION RATE . ESTIMATED GFR I S NOT APPLICABLE FOR DIALYSIS PATIEN TS. Clip On Sunglasses Inspector ID - SHANE GVANCOMYCIN LEVEL, [id number] 05:03:34 Test Item Value Reference Range Interpretation Comments VANCOMYCIN TROUGH (BEAKER) (test 7.0 ug/mL 10.0-20.0 L code = 522) Clip On Sunglasses Inspector ID - SHANE GBLOOD GAS, [id number] 04:54:51 Test Item Value Reference Range Interpretation Comments PH VENOUS (BEAKER) (test code = 7.44 7.32-7.42 H 701) PCO2 VENOUS (BEAKER) (test code = 39 mm Hg 41-51 L 755) PO2 VENOUS (BEAKER) (test code = 70 mm Hg 25-40 H 702) O2 SATURATION VENOUS (BEAKER) 94.7 % 40.0-70.0 H (test code = 703) HCO3 VENOUS (BEAKER) (test code = 26 mmol/L 21-29 705) BASE EXCESS VENOUS (BEAKER) (test 1.6 mmol/L -2.0-3.0 code = 704) PATIENT TEMPERATURE (BEAKER) (test 37.0 code = 1818) FIO2 (BEAKER) (test code = 1819) 21.0 POCT-GLUCOSE [id number] 00:08:56 Test Item Value Reference Range Interpretation Comments POC-GLUCOSE METER 92 mg/dL 70-110 : TESTED A T [facility] 6720 (BEAKER) (test code [facility], = 1538) [address]: Clip On Sunglasses Inspector/Techni bart ID = [id number] for Daryl Hoskinsrajesh [id number] 22:59:43 Test Item Value Reference Range Interpretation Comments PARTIAL THROMBOPLASTIN TIME 105.5 seconds 22.5-36.0 H (BEAKER) (test code = 760) POCT-GLUCOSE [id number] 22:43:54 Test Item Value Reference Range Interpretation Comments POC-GLUCOSE METER 131 mg/dL 70-110 H : [facility] ([facility] (test code = [place], 1538) [address]: Clip On Sunglasses Inspector/Techni bart ID = [id number] for ANDI MIGUEL BASIC METABOLIC [id number] 20:21:48 Test Item Value Reference Range Interpretation Comments SODIUM (BEAKER) 133 meq/L 136-145 L (test code = 381) POTASSIUM (BEAKER) 4.0 meq/L 3.5-5.1 (test code = 379) CHLORIDE (BEAKER) 99 meq/L 98-107 (test code = 382) CO2 (BEAKER) (test 25 meq/L 22-29 code = 355) BLOOD UREA NITROGEN 15 mg/dL 7-21 (BEAKER) (test code = 354) CREATININE (BEAKER) 1.11 mg/dL 0.57-1.25 (test code = 358) GLUCOSE RANDOM 89 mg/dL 70-105 (BEAKER) (test code = 652) CALCIUM (BEAKER) 9.4 mg/dL 8.4-10.2 (test code = 697) EGFR (BEAKER) (test 64 mL/min/1.73 ESTIMA LA GFR IS code = 1092) sq m NOT ACCURATE CREATININE CLEARANCE IN PREDICTING GLOMERULAR FILTRATION RATE . ESTIMATED GFR I S NOT APPLICABLE FOR DIALYSIS PATIEN TS. Clip On Sunglasses Inspector ID - [id number] 20:21:48 Test Item Value Reference Range Interpretation Comments MAGNESIUM (BEAKER) (test code = 2.4 mg/dL 1.6-2.6 627) Clip On Sunglasses Inspector ID - DBBLOOD GAS, [id number] 18:19:48 Test Item Value Reference Range Interpretation Comments PH VENOUS (BEAKER) (test code = 7.43 7.32-7.42 H 701) PCO2 VENOUS (BEAKER) (test code = 42 mm Hg 41-51 755) PO2 VENOUS (BEAKER) (test code = 37 mm Hg 25-40 702) O2 SATURATION VENOUS (BEAKER) 72.1 % 40.0-70.0 H (test code = 703) HCO3 VENOUS (BEAKER) (test code = 27 mmol/L 21-29 705) BASE EXCESS VENOUS (BEAKER) (test 2.7 mmol/L -2.0-3.0 code = 704) PATIENT TEMPERATURE (BEAKER) (test 36.9 code = 1818) FIO2 (BEAKER) (test code = 1819) 21.0 POCT-GLUCOSE [id number] 18:13:29 Test Item Value Reference Range Interpretation Comments POC-GLUCOSE METER 98 mg/dL 70-110 : TESTED A T [facility] 6720 (BEAKER) (test code = [facility], 1538) [address]: Clip On Sunglasses Inspector/Techni bart ID = [id number] for MELANIETHOMAS TOMLINSONA [id number] 15:50:51 Test Item Value Reference Range Interpretation Comments PARTIAL THROMBOPLASTIN TIME 79.7 seconds 22.5-36.0 H (BEAKER) (test code = 760) [id number] 14:42:01 Test Item Value Reference Range Interpretation Comments PARTIAL THROMBOPLASTIN TIME 196.8 seconds 22.5-36.0 HH (BEAKER) (test code = 760) [id number] 13:31:24 Test Item Value Reference Range Interpretation Comments PARTIAL THROMBOPLASTIN TIME > seconds 22.5-36.0 HH (BEAKER) (test code = 760) POCT-GLUCOSE [id number] 12:32:34 Test Item Value Reference Range Interpretation Comments POC-GLUCOSE METER 96 mg/dL 70-110 : TESTED A T [facility] 6720 (BEAKER) (test code = [facility], 1538) [address]: Clip On Sunglasses Inspector/Techni bart ID = [id number] for MELANIETHOMAS TOMLINSONA POCT-GLUCOSE [id number] 09:39:48 Test Item Value Reference Range Interpretation Comments POC-GLUCOSE METER 93 mg/dL 70-110 : TESTED A T [facility] 6720 (BEAKER) (test code = [facility], 1538) [address]: Clip On Sunglasses Inspector/Techni bart ID = [id number] for MELANIE BRY NICOLE, NAHED [id number] 05:38:09 Test Item Value Reference Range Interpretation Comments MAGNESIUM (BEAKER) (test code = 2.2 mg/dL 1.6-2.6 627) Clip On Sunglasses Inspector ID - KAYLEEN LBASIC METABOLIC [id number] 05:38:08 Test Item Value Reference Range Interpretation Comments SODIUM (BEAKER) 136 meq/L 136-145 (test code = 381) POTASSIUM (BEAKER) 3.8 meq/L 3.5-5.1 (test code = 379) CHLORIDE (BEAKER) 102 meq/L 98-107 (test code = 382) CO2 (BEAKER) (test 28 meq/L 22-29 code = 355) BLOOD UREA NITROGEN 12 mg/dL 7-21 (BEAKER) (test code = 354) CREATININE (BEAKER) 1.08 mg/dL 0.57-1.25 (test code = 358) GLUCOSE RANDOM 92 mg/dL 70-105 (BEAKER) (test code = 652) CALCIUM (BEAKER) 9.1 mg/dL 8.4-10.2 (test code = 697) EGFR (BEAKER) (test 66 mL/min/1.73 ESTIMA LA GFR IS code = 1092) sq m NOT ACCURATE CREATININE CLEARANCE IN PREDICTING GLOMERULAR FILTRATION RATE . ESTIMATED GFR I S NOT APPLICABLE FOR DIALYSIS PATIEN TS. Clip On Sunglasses Inspector ID - PIAYA [id number] 05:37:51 Test Item Value Reference Range Interpretation Comments PARTIAL THROMBOPLASTIN TIME 74.7 seconds 22.5-36.0 H (BEAKER) (test code = 760) BLOOD GAS, [id number] 05:36:41 Test Item Value Reference Range Interpretation Comments PH VENOUS (BEAKER) (test code = 7.46 7.32-7.42 H 701) PCO2 VENOUS (BEAKER) (test code = 41 mm Hg 41-51 755) PO2 VENOUS (BEAKER) (test code = 41 mm Hg 25-40 H 702) O2 SATURATION VENOUS (BEAKER) 78.7 % 40.0-70.0 H (test code = 703) HCO3 VENOUS (BEAKER) (test code = 28 mmol/L 21-29 705) BASE EXCESS VENOUS (BEAKER) (test 3.9 mmol/L -2.0-3.0 H code = 704) PATIENT TEMPERATURE (BEAKER) (test 37.0 code = 1818) FIO2 (BEAKER) (test code = 1819) 21.0 CBC W/PLT COUNT & AUTO [id number] 05:07:56 Test Item Value Reference Range Interpretation Comments WHITE BLOOD CELL COUNT (BEAKER) 8.5 K/ L 3.5-10.5 (test code = 775) RED BLOOD CELL COUNT (BEAKER) 3.58 M/ L 4.63-6.08 L (test code = 761) HEMOGLOBIN (BEAKER) (test code = 8.9 GM/DL 13.7-17.5 L 410) HEMATOCRIT (BEAKER) (test code = 29.5 % 40.1-51.0 L 411) MEAN CORPUSCULAR VOLUME (BEAKER) 82.4 fL 79.0-92.2 (test code = 753) MEAN CORPUSCULAR HEMOGLOBIN 24.9 pg 25.7-32.2 L (BEAKER) (test code = 751) MEAN CORPUSCULAR HEMOGLOBIN CONC 30.2 GM/DL 32.3-36.5 L (BEAKER) (test code = 752) RED CELL DISTRIBUTION WIDTH 19.5 % 11.6-14.4 H (BEAKER) (test code = 412) PLATELET COUNT (BEAKER) (test 252 K/CU MM 150-450 code = 756) MEAN PLATELET VOLUME (BEAKER) 10.3 fL 9.4-12.4 (test code = 754) NUCLEATED RED BLOOD CELLS 0 /100 WBC 0-0 (BEAKER) (test code = 413) NEUTROPHILS RELATIVE PERCENT 75 % (BEAKER) (test code = 429) LYMPHOCYTES RELATIVE PERCENT 16 % (BEAKER) (test code = 430) MONOCYTES RELATIVE PERCENT 8 % (BEAKER) (test code = 431) EOSINOPHILS RELATIVE PERCENT 1 % (BEAKER) (test code = 432) BASOPHILS RELATIVE PERCENT 0 % (BEAKER) (test code = 437) NEUTROPHILS ABSOLUTE COUNT 6.39 K/ L 1.78-5.38 H (BEAKER) (test code = 670) LYMPHOCYTES ABSOLUTE COUNT 1.31 K/ L 1.32-3.57 L (BEAKER) (test code = 414) MONOCYTES ABSOLUTE COUNT (BEAKER) 0.64 K/ L 0.30-0.82 (test code = 415) EOSINOPHILS ABSOLUTE COUNT 0.08 K/ L 0.04-0.54 (BEAKER) (test code = 416) BASOPHILS ABSOLUTE COUNT (BEAKER) 0.01 K/ L 0.01-0.08 (test code = 417) IMMATURE GRANULOCYTES-RELATIVE 1 % 0-1 PERCENT (BEAKER) (test code = 2801) RAD, CHEST, 1 VIEW, NON [id number] 04:31:00Reason for exam:->Respiratory failureShould this be performed at the bedside?->Yes [facility] 1945 Sex: MFINAL REPORT RAD, CHEST, 1 VIEW, NON DEPT INDICATION: Respiratory failure COMPARISON: Prior day's exam FINDINGS: Portable frontal view of the chest. IMPRESSION: Support Lines: None Lungs and pleura: Reduced airspace and pleural opacities. No pneumothorax.Heart and mediastinum: Stable contours. Additional findings: None. Signed: Link [place] Verified Date/Time: 09/04/2021 04:31:46 POCT-GLUCOSE [id number] 22:15:29 Test Item Value Reference Range Interpretation Comments POC-GLUCOSE METER 113 mg/dL 70-110 H : TESTED A T [facility] 6720 ([place]) (test code = [place] [facility], 1538) [address]: Clip On Sunglasses Inspector/Techni bart ID = [id number] for THEODORA ACOSTA (Tyrel)EVAN [id number] 17:34:10 Test Item Value Reference Range Interpretation Comments PROCALCITONIN (ELINAAKER) (test code 0.74 ng/mL <0.05 H = 3036) SEPSIS RISK (ng/mL)Low: 0.05-0.50Intermediate: 0.51-2.00High: >=2.01BASIC METABOLIC [id number] 17:02:45 Test Item Value Reference Range Interpretation Comments SODIUM (BEAKER) 137 meq/L 136-145 (test code = 381) POTASSIUM (BEAKER) 3.7 meq/L 3.5-5.1 (test code = 379) CHLORIDE (BEAKER) 102 meq/L 98-107 (test code = 382) CO2 (BEAKER) (test 26 meq/L 22-29 code = 355) BLOOD UREA NITROGEN 15 mg/dL 7-21 (BEAKER) (test code = 354) CREATININE (BEAKER) 1.15 mg/dL 0.57-1.25 (test code = 358) GLUCOSE RANDOM 111 mg/dL 70-105 H (BEAKER) (test code = 652) CALCIUM (BEAKER) 9.3 mg/dL 8.4-10.2 (test code = 697) EGFR (BEAKER) (test 62 mL/min/1.73 ESTIMA LA GFR IS code = 1092) sq m NOT ACCURATE CREATININE CLEARANCE IN PREDICTING GLOMERULAR FILTRATION RATE . ESTIMATED GFR I S NOT APPLICABLE FOR DIALYSIS PATIEN TS. Clip On Sunglasses Inspector ID - [id number] 17:02:45 Test Item Value Reference Range Interpretation Comments MAGNESIUM (BEAKER) (test code = 2.3 mg/dL 1.6-2.6 627) Clip On Sunglasses Inspector ID - DBPOCT-GLUCOSE [id number] 16:39:27 Test Item Value Reference Range Interpretation Comments POC-GLUCOSE METER 102 mg/dL 70-110 : TESTED A T BSC 6720 (BEAKER) (test code = [place], 1538) [address]67: [employer] Inspector/Techni bart ID = [id number] for Eduardo Brown BLOOD GAS, [id number] 16:20:14 Test Item Value Reference Range Interpretation Comments PH VENOUS (BEAKER) (test code = 7.45 7.32-7.42 H 701) PCO2 VENOUS (BEAKER) (test code = 37 mm Hg 41-51 L 755) PO2 VENOUS (BEAKER) (test code = 36 mm Hg 25-40 702) O2 SATURATION VENOUS (BEAKER) 72.5 % 40.0-70.0 H (test code = 703) HCO3 VENOUS (BEAKER) (test code = 25 mmol/L 21-29 705) BASE EXCESS VENOUS (BEAKER) (test 1.1 mmol/L -2.0-3.0 code = 704) PATIENT TEMPERATURE (BEAKER) (test 36.7 code = 1818) FIO2 (BEAKER) (test code = 1819) 32.0 [id number] 07:54:36 Test Item Value Reference Range Interpretation Comments MAGNESIUM (BEAKER) (test code = 2.4 mg/dL 1.6-2.6 627) [employer] Inspector ID - KAYLEEN LRAD, CHEST, 1 VIEW, NON [id number] 06:39:00Reason for exam:->Respiratory failureShould this be performed at the bedside?->Yes [facility] 1945 Sex: MFINAL REPORT Chest, one view. HISTORY: Respiratory failure HUGO RISON: Radiograph from yesterday IMPRESSION: The bilateral perihilar opacities have increased, mostconsistent with worsening pulmonary edema. Small right and trace left pleural effusions. No pneumothorax. The cardiac silhouette is unchanged in size. No acute bone abnormality. Biopsy clip over the stomach. Signed: Sudheer Sotelo MDReport Verified Date/Time: 09/03/2021 06:39:59 BASIC METABOLIC [id number] 05:41:02 Test Item Value Reference Range Interpretation Comments SODIUM (BEAKER) 135 meq/L 136-145 L (test code = 381) POTASSIUM (BEAKER) 4.3 meq/L 3.5-5.1 (test code = 379) CHLORIDE (BEAKER) 104 meq/L 98-107 (test code = 382) CO2 (BEAKER) (test 21 meq/L 22-29 L code = 355) BLOOD UREA NITROGEN 16 mg/dL 7-21 (BEAKER) (test code = 354) CREATININE (BEAKER) 1.18 mg/dL 0.57-1.25 (test code = 358) GLUCOSE RANDOM 88 mg/dL 70-105 (BEAKER) (test code = 652) CALCIUM (BEAKER) 9.6 mg/dL 8.4-10.2 (test code = 697) EGFR (BEAKER) (test 60 mL/min/1.73 ESTIMA LA GFR IS code = 1092) sq m NOT ACCURATE CREATININE CLEARANCE IN PREDICTING GLOMERULAR FILTRATION RATE . ESTIMATED GFR I S NOT APPLICABLE FOR DIALYSIS PATIEN TS. [employer] Inspector ID - PIAYA LBLOOD GAS, [id number] 05:28:49 Test Item Value Reference Range Interpretation Comments PH VENOUS (BEAKER) (test code = 7.47 7.32-7.42 H 701) PCO2 VENOUS (BEAKER) (test code = 33 mm Hg 41-51 L 755) PO2 VENOUS (BEAKER) (test code = 157 mm Hg 25-40 H 702) O2 SATURATION VENOUS (BEAKER) 99.1 % 40.0-70.0 H (test code = 703) HCO3 VENOUS (BEAKER) (test code = 24 mmol/L 21-29 705) BASE EXCESS VENOUS (BEAKER) (test 0.2 mmol/L -2.0-3.0 code = 704) PATIENT TEMPERATURE (BEAKER) (test 37.0 code = 1818) FIO2 (BEAKER) (test code = 1819) 50.0 HIGH SENSITIVITY TROPONIN [id number] 05:25:39 Test Item Value Reference Range Interpretation Comments HIGH SENSITIVITY 35 pg/ml See_Comment [Automated message] TROPONIN I (test code = The system which [id number]) generated this result transmitted ref erence range: <=35. Th e reference range was not used to int erpret this result as normal/abnormal . [employer] Sunglasses Inspector ID - PIAYA LThe SENIOR CYTOGENETICS LABORATORY DIRECTOR STAT High Sensitivity Troponin-I results should be used in conjunction with other diagnostic information such as ECG, clinical observations and information, and patient symptoms to aid in the diagnosis of CO.B-TYPE NATRIURETIC FACTOR (BNP)2021-09-03 05:25:38 Test Item Value Reference Range Interpretation Comments B-TYPE NATRIURETIC PEPTIDE 1522 pg/mL 0-100 H (BEAKER) (test code = 700) [employer] Sunglasses Inspector LOBITO BEYER LLACTIC ACID, [id number] 05:08:12 Test Item Value Reference Range Interpretation Comments LACTATE BLOOD VENOUS (2) (BEAKER) 0.98 mmol/L 0.50-2.20 (test code = 2872) [employer] Sunglasses Inspector LOBITO BEYER LCBC W/PLT COUNT & AUTO [id number] 04:46:58 Test Item Value Reference Range Interpretation Comments WHITE BLOOD CELL COUNT (BEAKER) 10.9 K/ L 3.5-10.5 H (test code = 775) RED BLOOD CELL COUNT (BEAKER) 3.81 M/ L 4.63-6.08 L (test code = 761) HEMOGLOBIN (BEAKER) (test code = 9.4 GM/DL 13.7-17.5 L 410) HEMATOCRIT (BEAKER) (test code = 31.8 % 40.1-51.0 L 411) MEAN CORPUSCULAR VOLUME (BEAKER) 83.5 fL 79.0-92.2 (test code = 753) MEAN CORPUSCULAR HEMOGLOBIN 24.7 pg 25.7-32.2 L (BEAKER) (test code = 751) MEAN CORPUSCULAR HEMOGLOBIN CONC 29.6 GM/DL 32.3-36.5 L (BEAKER) (test code = 752) RED CELL DISTRIBUTION WIDTH 19.1 % 11.6-14.4 H (BEAKER) (test code = 412) PLATELET COUNT (BEAKER) (test 241 K/CU MM 150-450 code = 756) MEAN PLATELET VOLUME (BEAKER) 10.1 fL 9.4-12.4 (test code = 754) NUCLEATED RED BLOOD CELLS 0 /100 WBC 0-0 (BEAKER) (test code = 413) NEUTROPHILS RELATIVE PERCENT 83 % (BEAKER) (test code = 429) LYMPHOCYTES RELATIVE PERCENT 10 % (BEAKER) (test code = 430) MONOCYTES RELATIVE PERCENT 6 % (BEAKER) (test code = 431) EOSINOPHILS RELATIVE PERCENT 0 % (BEAKER) (test code = 432) BASOPHILS RELATIVE PERCENT 0 % (BEAKER) (test code = 437) NEUTROPHILS ABSOLUTE COUNT 9.02 K/ L 1.78-5.38 H (BEAKER) (test code = 670) LYMPHOCYTES ABSOLUTE COUNT 1.14 K/ L 1.32-3.57 L (BEAKER) (test code = 414) MONOCYTES ABSOLUTE COUNT (BEAKER) 0.65 K/ L 0.30-0.82 (test code = 415) EOSINOPHILS ABSOLUTE COUNT 0.02 K/ L 0.04-0.54 L (BEAKER) (test code = 416) BASOPHILS ABSOLUTE COUNT (BEAKER) 0.04 K/ L 0.01-0.08 (test code = 417) IMMATURE GRANULOCYTES-RELATIVE 0 % 0-1 PERCENT (BEAKER) (test code = 2801) HIGH SENSITIVITY TROPONIN [id number] 23:24:52 Test Item Value Reference Range Interpretation Comments HIGH SENSITIVITY 60 pg/ml See_Comment H [Automated message] TROPONIN I (test code = The system which [id number]) generated this result transmitted ref erence range: <=35. Th e reference range was not used to int erpret this result as normal/abnormal . [employer] S[employer]lasses Inspector ID - KAYLEEN LThe SENIOR CYTOGENETICS LABORATORY DIRECTOR STAT High Sensitivity Troponin-I results should be used in conjunction with other diagnostic information such as ECG, clinical observations and information, and patient symptoms to aid in the diagnosis of CO.LACTIC ACID, [id number] 23:16:31 Test Item Value Reference Range Interpretation Comments LACTATE BLOOD VENOUS 2.39 mmol/L 0.50-2.20 H Specime n slightly (2) (BEAKER) (test hemolyzed code = 2872) [employer] Sunglasses Inspector ID - PIAYA LBASIC METABOLIC [id number] 20:00:02 Test Item Value Reference Range Interpretation Comments SODIUM (BEAKER) 135 meq/L 136-145 L (test code = 381) POTASSIUM (BEAKER) 4.2 meq/L 3.5-5.1 (test code = 379) CHLORIDE (BEAKER) 105 meq/L 98-107 (test code = 382) CO2 (BEAKER) (test 19 meq/L 22-29 L code = 355) BLOOD UREA NITROGEN 18 mg/dL 7-21 (BEAKER) (test code = 354) CREATININE (BEAKER) 1.45 mg/dL 0.57-1.25 H (test code = 358) GLUCOSE RANDOM 200 mg/dL 70-105 H (BEAKER) (test code = 652) CALCIUM (BEAKER) 9.7 mg/dL 8.4-10.2 (test code = 697) EGFR (BEAKER) (test 47 mL/min/1.73 ESTIMA LA GFR IS code = 1092) sq m NOT ACCURATE CREATININE CLEARANCE IN PREDICTING GLOMERULAR FILTRATION RATE . ESTIMATED GFR I S NOT APPLICABLE FOR DIALYSIS PATIEN TS. Cl[employer] Sunglasses Inspector ID - DBLACTIC ACID, [id number] 19:50:59 Test Item Value Reference Range Interpretation Comments LACTATE BLOOD VENOUS 3.70 mmol/L 0.50-2.20 H Specime n slightly (2) (BRAXTON) (test hemolyzed code = 2872) Cl[employer] Sunglasses Inspector ID - [id number] 18:48:36 Test Item Value Reference Range Interpretation Comments PROCALCITONIN (BRAXTON) (test code = < ng/mL <0.05 6626) SEPSIS RISK (ng/mL)Low: 0.05-0.50Intermediate: 0.51-2.00High: >=2.01B-TYPE NATRIURETIC FACTOR (BNP)2021-09-02 18:06:28 Test Item Value Reference Range Interpretation Comments B-TYPE NATRIURETIC PEPTIDE (BRAXTON) 801 pg/mL 0-100 H (test code = 700) Cl[employer] Sunglasses Inspector ID - DBHIGH SENSITIVITY TROPONIN [id number] 18:06:07 Test Item Value Reference Range Interpretation Comments HIGH SENSITIVITY 10 pg/ml See_Comment [Automated message] TROPONIN I (test code = The system which [id number]) generated this result transmitted ref erence range: <=35. Th e reference range was not used to int erpret this result as normal/abnormal . [employer] S[employer]lasses Inspector ID - DBThe SENIOR CYTOGENETICS LABORATORY DIRECTOR STAT High Sensitivity Troponin-I results should be used in conjunctionwith other diagnostic information such as ECG, clinical observations and information, and patient symptoms to aid in the diagnosis of CO.LACTIC ACID, [id number] 18:03:35 Test Item Value Reference Range Interpretation Comments LACTATE BLOOD 5.0 mmol/L 0.5-2.2 HH Specimen sligh tly ARTERIAL (2) (ELINAAKER) hemoly zed (test code = 2874) Cl[employer] Sunglasses Inspector ID - DBRAD, CHEST, 1 VIEW, NON [id number] 18:01:00Reason for exam:- >dyspneaShould this be performed at the bedside?->Yes [facility] [place] : 1945 Sex: MFINAL REPORT RAD, CHEST, 1 VIEW, NON DEPT INDICATION: dyspnea COM PARISON: 07/03/21 FINDINGS: Portable frontal view of the chest. IMPRESSION: Support Lines: Overlying leads Lungs and pleura: Bibasilar airspace disease and small bilateral effusions, compatible with mild volume overload. No significant pneumothorax. Heart and mediastinum: Normal contours. Additional findings: None. Signed: Griselda Cordero Verified Date/Time: 09/02/2021 18:01:04 -[id number] 17:41:20 Test Item Value Reference Range Interpretation Comments POC-GLUCOSE (ELINAAKER) 245 mg/dL 70-110 H : TESTE D AT [facility] 67 (test code = 1855) [facility], [id number]: Cl[employer] Sunglasses Inspector/Techni bart ID = [id number] for PAIG E, NAVDEEP [id number] 17:41:19 Test Item Value Reference Range Interpretation Comments POC-HEMOGLOBIN 12.2 g/dL 13.0-16.8 L : TESTED AT [facility] 67 (BEAKER) (test code [facility], = 1856) [address]: Cl[employer] Sunglasses Inspector/Techni bart ID = [id number] for PAIG E, NAVDEEP [id number] 17:41:19 Test Item Value Reference Range Interpretation Comments POC-HEMATOCRIT 36 % 40-50 L : [employer] S[employer]lasses Inspector/Te chnician ID = (BEAKER) (test code = 306663 for NAVDEEP ROLLINS 1857) [id number] 17:41:18 Test Item Value Reference Range Interpretation Comments POC-POTASSIUM 4.6 meq/L 3.6-5.5 : TESTED AT [facility] 6720 (BEAKER) (test code [facility], = 1540) [address]: Cl[employer] Sunglasses Inspector/Techni bart ID = [id number] for MARIELYG E, NAVDEEP [id number] 17:41:13 Test Item Value Reference Range Interpretation Comments POC-SODIUM (BEAKER) 133 meq/L 135-148 L : TESTED AT [facility] 6720 (test code = 1542) [facility], [address]: Cl[employer] Sunglasses Inspector/Techni bart ID = [id number] for MARIELYG E, NAVDEEP POCT-BLOOD GASES, [id number] 17:41:12 Test Item Value Reference Range Interpretation Comments TEMP, CELSIUS-POC (BEAKER) (test code = 1834) FIO2-POC (BEAKER) (test code = 1835) PH, ARTERIAL-POC 7.376 7.350-7.450 (BEAKER) (test code = 1836) PCO2, ARTERIAL-POC 30.6 mm Hg 35.0-45.0 L If pO2 is >180, pCO2 may (BEAKER) (test code be posit ively biased = 1837) PO2, ARTERIAL-POC 64.0 mm Hg 80.0-90.0 L (BEAKER) (test code = 1838) SO2, ARTERIAL-POC 92.0 % 96.0-97.0 L (BEAKER) (test code = 1839) HCO3, ARTERIAL-POC 17.9 meq/L 21.0-29.0 L (BEAKER) (test code = 1840) BASE EXCESS, -7.0 meq/L -2.0-3.0 L : TESTED AT [facility] 6720 ARTERIAL-POC [facility], (BEAKER) (test code [address]: = 1841) Cl[employer] Sunglasses Inspector/Techni bart ID = [id number] for PAIG E, NAVDEEP CT, CHEST, WITH [id number] 16:35:00Unlisted Reason for Exam - Click Yes and Enter Reason Below->YesUnlisted Reason for Exam->rapid 40 lb wt loss, concern for malignancy [facility] [place] : 1945 Sex: MFINAL REPORT TECHNIQUE: CT scan of the chest WITH intravenous con trast. Dose modulation, iterative reconstruction, and/or weight-based adjustment of the mA/kV was utilized to reduce the radiation dose to as low as reasonably achievable. INDICATION: Unlisted Reason for Examrapid 40 lb wt loss, concern for malignancy. COMPARISON: CT of the abdomen and pelvis from 04/29/2021. FINDINGS: LINES/TUBES: None. LUNGS AND AIRWAYS: A right lower lobe calcified granuloma measures 0.5 cm. Increased interstitial opacities of the lungs. There are mild streaky opacities of both lung bases. PLEURA: Small right and trace left pleural effusions. There are 2 areas of left pleural calcification. HEART AND MEDIASTINUM: The visualized thyroid gland is normal. No significant mediastinal, hilar, or axillary lymphadenopathy. There are a few calcified right perihilar lymph nodes are likely related to prior granulomatous disease. The left atrium and ventricle are markedly dilated. Mild calcification of the right coronary artery. Marked calcification of the left anterior descending coronary artery. Mild calcification of the left circumflex coronary artery. Mild calcification of the aortic annulus. SOFT TISSUES AND BONES: Unremarkable. UPPER ABDOMEN: There is layering hyperdense material in the gallbladder. A left upper pole simple renal cyst measures 0.9 cm. No routine follow-up imaging is recommended for this finding. A nonobstructing left upper pole renal stone is punctate. IMPRESSION: 1.Small right and trace left pleural effusions. The bibasilar lung opacities are most likely atelectasis. The increased interstitial opacities of lungs are concerning for interstitial pulmonary edema. 2.The left atrium and ventricle are markedly dilated. 3.The layering hyperdense material in thegallbladder could be due to sludge or vicarious excretion of contrast if the patient has had a recent contrast-enhanced examination. 4.Marked calcification of the left anterior descending coronary artery. 5.Calcified left pleural plaque could be related to prior asbestos exposure or infection. There are findings of prior granulomatous disease in the right lower lobe and right perihilar region. 6.A nonobstructing left upper pole renal stone is punctate. Signed: Sudheer Sotelo MDReport Verified Date/Time: 09/02/2021 16:35:31 Reading Location: [facility] [id number] CT Body Reading Room C METABOLIC [id number] 05:54:20 Test Item Value Reference Range Interpretation Comments SODIUM (BEAKER) 140 meq/L 136-145 (test code = 381) POTASSIUM (BEAKER) 4.4 meq/L 3.5-5.1 (test code = 379) CHLORIDE (BEAKER) 109 meq/L 98-107 H (test code = 382) CO2 (BEAKER) (test 24 meq/L 22-29 code = 355) BLOOD UREA NITROGEN 15 mg/dL 7-21 (BEAKER) (test code = 354) CREATININE (BEAKER) 0.85 mg/dL 0.57-1.25 (test code = 358) GLUCOSE RANDOM 81 mg/dL 70-105 (BEAKER) (test code = 652) CALCIUM (BEAKER) 9.6 mg/dL 8.4-10.2 (test code = 697) EGFR (BEAKER) (test 87 mL/min/1.73 ESTIMA LA GFR IS code = 1092) sq m NOT ACCURATE CREATININE CLEARANCE IN PREDICTING GLOMERULAR FILTRATION RATE . ESTIMATED GFR I S NOT APPLICABLE FOR DIALYSIS PATIEN TS. [employer] S[employer]lasses Inspector ID - SHANE GCBC W/PLT COUNT & AUTO [id number] 05:27:33 Test Item Value Reference Range Interpretation Comments WHITE BLOOD CELL COUNT (BEAKER) 5.2 K/ L 3.5-10.5 (test code = 775) RED BLOOD CELL COUNT (BEAKER) 3.67 M/ L 4.63-6.08 L (test code = 761) HEMOGLOBIN (BEAKER) (test code = 9.0 GM/DL 13.7-17.5 L 410) HEMATOCRIT (BEAKER) (test code = 29.5 % 40.1-51.0 L 411) MEAN CORPUSCULAR VOLUME (BEAKER) 80.4 fL 79.0-92.2 (test code = 753) MEAN CORPUSCULAR HEMOGLOBIN 24.5 pg 25.7-32.2 L (BEAKER) (test code = 751) MEAN CORPUSCULAR HEMOGLOBIN CONC 30.5 GM/DL 32.3-36.5 L (BEAKER) (test code = 752) RED CELL DISTRIBUTION WIDTH 19.3 % 11.6-14.4 H (BEAKER) (test code = 412) PLATELET COUNT (BEAKER) (test 259 K/CU MM 150-450 code = 756) MEAN PLATELET VOLUME (BEAKER) 10.4 fL 9.4-12.4 (test code = 754) NUCLEATED RED BLOOD CELLS 0 /100 WBC 0-0 (BEAKER) (test code = 413) NEUTROPHILS RELATIVE PERCENT 68 % (BEAKER) (test code = 429) LYMPHOCYTES RELATIVE PERCENT 20 % (BEAKER) (test code = 430) MONOCYTES RELATIVE PERCENT 9 % (BEAKER) (test code = 431) EOSINOPHILS RELATIVE PERCENT 2 % (BEAKER) (test code = 432) BASOPHILS RELATIVE PERCENT 0 % (BEAKER) (test code = 437) NEUTROPHILS ABSOLUTE COUNT 3.53 K/ L 1.78-5.38 (BEAKER) (test code = 670) LYMPHOCYTES ABSOLUTE COUNT 1.05 K/ L 1.32-3.57 L (BEAKER) (test code = 414) MONOCYTES ABSOLUTE COUNT (BEAKER) 0.47 K/ L 0.30-0.82 (test code = 415) EOSINOPHILS ABSOLUTE COUNT 0.11 K/ L 0.04-0.54 (BEAKER) (test code = 416) BASOPHILS ABSOLUTE COUNT (BEAKER) 0.02 K/ L 0.01-0.08 (test code = 417) IMMATURE GRANULOCYTES-RELATIVE 0 % 0-1 PERCENT (BEAKER) (test code = 2801) [id number] 18:20:35 Test Item Value Reference Range Interpretation Comments FERRITIN (BEAKER) (test code = 36.01 ng/mL 5.00-275.00 361) [employer] S[employer]lasses Inspector ID - KAYLEEN LISBETH, TIBC, % SAT. (WITHOUT FERRITIN)2021-09-01 18:00:19 Test Item Value Reference Range Interpretation Comments IRON (BEAKER) (test code = 547) 14.0 ug/dL 40.0-160.0 L TOTAL IRON BINDING CAPACITY 355 ug/dL 250-450 (BEAKER) (test code = 769) IRON % SATURATION (2) (BEAKER) 4 % 20-55 L (test code = 2590) [employer] S[employer]lasses Inspector ID - KAYLEEN LFL, ESOPH, SWALLOW FUNCTION, WITH CINE OR [id number] 12:11:00Reason for exam:->TIMED BARIUIM SWALLOW at 1, 5 and 10 minutes with tablet for dysphagia w/ neg [facility] 1945 Sex: MFINAL REPORT Timed barium swallow CLINICAL HISTORY: TIMED BARIUM SWALLOW at 1, 5 and 10 minutes with tablet for dysphagia w/ neg EGD IMPRESSION: A barium pill is given to the patient to swallow. It stayed at the GE junction at 1, 5, 10 and 20 minutes. It passed into the stomach at 25 minutes. Fluoro time: None Number of images: 8 Signed: Jim Espana Verified Date/Time: 09/01/2021 12:11:08 Reading Location: [address] Consult Reading Room HEPATIC FUNCTION [id number] 07:23:40 Test Item Value Reference Range Interpretation Comments TOTAL PROTEIN (BEAKER) (test code = 5.8 gm/dL 6.0-8.3 L 770) ALBUMIN (BEAKER) (test code = 1145) 3.4 g/dL 3.5-5.0 L BILIRUBIN TOTAL (BEAKER) (test code 0.7 mg/dL 0.2-1.2 = 377) BILIRUBIN DIRECT (BEAKER) (test 0.4 mg/dL 0.1-0.5 code = 706) ALKALINE PHOSPHATASE (BEAKER) (test 64 U/L 40-150 code = 346) AST (SGOT) (BEAKER) (test code = 21 U/L 5-34 353) ALT (SGPT) (BEAKER) (test code = 45 U/L 6-55 347) [employer] Sunglasses Inspector ID - KAYLEEN [id number] 07:23:39 Test Item Value Reference Range Interpretation Comments MAGNESIUM (BEAKER) (test code = 2.3 mg/dL 1.6-2.6 627) Cl[employer] Sunglasses Inspector ID - ZACMARIELA [id number] 07:23:39 Test Item Value Reference Range Interpretation Comments PHOSPHORUS (BEAKER) (test code = 3.8 mg/dL 2.3-4.7 604) Cl[employer] Sunglasses Inspector ID - KAYLEEN LBASIC METABOLIC [id number] 07:23:38 Test Item Value Reference Range Interpretation Comments SODIUM (BEAKER) 139 meq/L 136-145 (test code = 381) POTASSIUM (BEAKER) 4.0 meq/L 3.5-5.1 (test code = 379) CHLORIDE (BEAKER) 106 meq/L 98-107 (test code = 382) CO2 (BEAKER) (test 26 meq/L 22-29 code = 355) BLOOD UREA NITROGEN 15 mg/dL 7-21 (BEAKER) (test code = 354) CREATININE (BEAKER) 0.97 mg/dL 0.57-1.25 (test code = 358) GLUCOSE RANDOM 76 mg/dL 70-105 (BEAKER) (test code = 652) CALCIUM (BEAKER) 9.1 mg/dL 8.4-10.2 (test code = 697) EGFR (BEAKER) (test 75 mL/min/1.73 ESTIMA LA GFR IS code = 1092) sq m NOT ACCURATE CREATININE CLEARANCE IN PREDICTING GLOMERULAR FILTRATION RATE . ESTIMATED GFR I S NOT APPLICABLE FOR DIALYSIS PATIEN TS. [employer] Sunglasses Inspector ID - KAYLEEN LTSH/FREE T4 IF [id number] 06:55:05 Test Item Value Reference Range Interpretation Comments THYROID STIMULATING HORMONE 1.112 uIU/mL 0.350-4.940 (BEAKER) (test code = 772) [employer] Sunglasses Inspector ID - KAYLEEN LPROTHROMBIN [id number] 06:24:18 Test Item Value Reference Range Interpretation Comments PROTIME (BEAKER) 17.9 seconds 11.9-14.2 H (test code = 759) INR (BEAKER) (test 1.51 See_Comment [Automat ed message] code = 370) The system [employer] generated this result transmitted ref erence range: <=5.90. The reference range was not used to int erpret this result as normal/abnormal . RECOMMENDED COUMADIN/WARFARIN INR THERAPY RANGESSTANDARD DOSE: 2.0 - 3.0 Includes: PROPHYLAXIS forvenous thrombosis, systemic embolization; TREATMENT for venous thrombosis and/or pulmonary embolus.HIGH RISK: Target INR is 2.5-3.5 for patients with mechanical heart valves.CBC W/PLT COUNT & AUTO DIFFERENTIAL 2021-09-01 06:22:43 Test Item Value Reference Range Interpretation Comments WHITE BLOOD CELL COUNT (BEAKER) 5.9 K/ L 3.5-10.5 (test code = 775) RED BLOOD CELL COUNT (BEAKER) 3.72 M/ L 4.63-6.08 L (test code = 761) HEMOGLOBIN (BEAKER) (test code = 9.2 GM/DL 13.7-17.5 L 410) HEMATOCRIT (BEAKER) (test code = 31.0 % 40.1-51.0 L 411) MEAN CORPUSCULAR VOLUME (BEAKER) 83.3 fL 79.0-92.2 (test code = 753) MEAN CORPUSCULAR HEMOGLOBIN 24.7 pg 25.7-32.2 L (BEAKER) (test code = 751) MEAN CORPUSCULAR HEMOGLOBIN CONC 29.7 GM/DL 32.3-36.5 L (BEAKER) (test code = 752) RED CELL DISTRIBUTION WIDTH 19.9 % 11.6-14.4 H (BEAKER) (test code = 412) PLATELET COUNT (BEAKER) (test 271 K/CU MM 150-450 code = 756) MEAN [...] (test code = 437) NEUTROPHILS ABSOLUTE COUNT 3.90 K/ L 1.78-5.38 (BEAKER) (test code = 670) LYMPHOCYTES ABSOLUTE COUNT 1.22 K/ L 1.32-3.57 L (BEAKER) (test code = 414) MONOCYTES ABSOLUTE COUNT (BEAKER) 0.54 K/ L 0.30-0.82 (test code = 415) EOSINOPHILS ABSOLUTE COUNT 0.12 K/ L 0.04-0.54 (BEAKER) (test code = 416) BASOPHILS ABSOLUTE COUNT (BEAKER) 0.05 K/ L 0.01-0.08 (test code = 417) IMMATURE GRANULOCYTES-RELATIVE 0 % 0-1 PERCENT (BEAKER) (test code = 2801) SARS-COV2/RT-PCR ([facility])2021-08-31 15:45:18 Test Item Value Reference Range Interpretation Comments SARS-COV2/RT-PCR Negative Negative The SARS-Co V-2 target (test code = nucleic acids a re not [id number]) detected in thi s specimen. Negative result s do not preclude SARS-C oV-2 infection and s hould not be used as the yolanda e basis for patient managem ent decisions. Nega tive results must be combine d with clinical observ ations, patient history , and epidemiological information. A false negativ e result may occur if a spec imen is improperly mario ected, transported or handled. This SARS CoV-2 [...] revoked sooner. Fact Sheet for Healthcare Providers: https://www.[employer] [place]/Documents/Xpert%20Xpress%20SARS%20CoV-2/Fact%20Sheets/302-3802%20SARS-COV -2%20HEALTHCARE%20PROVIDERS%20FACT%20SHEET.pdf Fact Sheet for Healthcare Patients: https://www.[employer]/Documents/Xpert %20Xpress%20SARS%20CoV-2/Fact%20Sheets/3023801%53LIYO-MDU-4%20PATIENT%20FACT%20 SHEET.pdfHIGH SENSITIVITY TROPONIN [id number] 13:23:34 Test Item Value Reference Range Interpretation Comments HIGH SENSITIVITY 10 pg/ml See_Comment [Automated message] TROPONIN I (test code = The system which [id number]) generated this result transmitted ref erence range: <=35. Th e reference range was not used to int erpret this result as normal/abnormal . Cl[employer] Sunglasses Inspector ID - ADMINThe SENIOR CYTOGENETICS LABORATORY DIRECTOR STAT High Sensitivity Troponin-I results should be used in conjunction with other diagnostic information such as ECG, clinical observations and information, and patientsymptoms to aid in the diagnosis of CO. [id number] 13:16:30 Test Item Value Reference Range Interpretation Comments PARTIAL THROMBOPLASTIN TIME 41.6 seconds 22.5-36.0 H (BEAKER) (test code = 760) BASIC METABOLIC [id number] 13:16:09 Test Item Value Reference Range Interpretation Comments SODIUM (BEAKER) 141 meq/L 136-145 (test code = 381) POTASSIUM (BEAKER) 3.8 meq/L 3.5-5.1 (test code = 379) CHLORIDE (BEAKER) 105 meq/L 98-107 (test code = 382) CO2 (BEAKER) (test 28 meq/L 22-29 code = 355) BLOOD UREA NITROGEN 16 mg/dL 7-21 (BEAKER) (test code = 354) CREATININE (BEAKER) 1.35 mg/dL 0.57-1.25 H (test code = 358) GLUCOSE RANDOM 128 mg/dL 70-105 H (BEAKER) (test code = 652) CALCIUM (BEAKER) 10.0 mg/dL 8.4-10.2 (test code = 697) EGFR (BEAKER) (test 51 mL/min/1.73 ESTIMA LA GFR IS code = 1092) sq m NOT ACCURATE CREATININE CLEARANCE IN PREDICTING GLOMERULAR FILTRATION RATE . ESTIMATED GFR I S NOT APPLICABLE FOR DIALYSIS PATIEN TS. Cl[employer] Sunglasses Inspector ID - ADMINPROTHROMBIN [id number] 13:15:51 Test Item Value Reference Range Interpretation Comments PROTIME (BEAKER) 21.2 seconds 11.9-14.2 H (test code = 759) INR (BEAKER) (test 1.86 See_Comment [Automat ed message] code = 370) The system [employer] generated this result transmitted ref erence range: <=5.90. The reference range was not used to int erpret this result as normal/abnormal . RECOMMENDED COUMADIN/WARFARIN INR THERAPY RANGESSTANDARD DOSE: 2.0 - 3.0 Includes: PROPHYLAXIS forvenous thrombosis, systemic embolization; TREATMENT for venous thrombosis and/or pulmonary embolus.HIGH RISK: Target INR is 2.5-3.5 for patients with mechanical heart valves.LACTIC ACID, [id number] 13:12:46 Test Item Value Reference Range Interpretation Comments LACTATE BLOOD VENOUS (2) (BEAKER) 1.73 mmol/L 0.50-2.20 (test code = 2872) Cl[employer] Sunglasses Inspector ID - ADMINCBC W/PLT COUNT & AUTO [id number] 12:54:05 Test Item Value Reference Range Interpretation Comments WHITE BLOOD CELL COUNT (BEAKER) 7.1 K/ L 3.5-10.5 (test code = 775) RED BLOOD CELL COUNT (BEAKER) 4.17 M/ L 4.63-6.08 L (test code = 761) HEMOGLOBIN (BEAKER) (test code = 10.2 GM/DL 13.7-17.5 L 410) HEMATOCRIT (BEAKER) (test code = 35.3 % 40.1-51.0 L 411) MEAN CORPUSCULAR VOLUME (BEAKER) 84.7 fL 79.0-92.2 (test code = 753) MEAN CORPUSCULAR HEMOGLOBIN 24.5 pg 25.7-32.2 L (BEAKER) (test code = 751) MEAN CORPUSCULAR HEMOGLOBIN CONC 28.9 GM/DL 32.3-36.5 L (BEAKER) (test code = 752) RED CELL DISTRIBUTION WIDTH 20.0 % 11.6-14.4 H (BEAKER) (test code = 412) PLATELET COUNT (BEAKER) (test 308 K/CU MM 150-450 code = 756) MEAN PLATELET VOLUME (BEAKER) 9.9 fL 9.4-12.4 (test code = 754) NUCLEATED RED BLOOD CELLS 0 /100 WBC 0-0 (BEAKER) (test code = 413) NEUTROPHILS RELATIVE PERCENT 68 % (BEAKER) (test code = 429) LYMPHOCYTES RELATIVE PERCENT 23 % (BEAKER) (test code = 430) MONOCYTES RELATIVE PERCENT 8 % (BEAKER) (test code = 431) EOSINOPHILS RELATIVE PERCENT 1 % (BEAKER) (test code = 432) BASOPHILS RELATIVE PERCENT 0 % (BEAKER) (test code = 437) NEUTROPHILS ABSOLUTE COUNT 4.81 K/ L 1.78-5.38 (BEAKER) (test code = 670) LYMPHOCYTES ABSOLUTE COUNT 1.64 K/ L 1.32-3.57 (BEAKER) (test code = 414) MONOCYTES ABSOLUTE COUNT (BEAKER) 0.56 K/ L 0.30-0.82 (test code = 415) EOSINOPHILS ABSOLUTE COUNT 0.05 K/ L 0.04-0.54 (BEAKER) (test code = 416) BASOPHILS ABSOLUTE COUNT (BEAKER) 0.03 K/ L 0.01-0.08 (test code = 417) IMMATURE GRANULOCYTES-RELATIVE 0 % 0-1 PERCENT (BEAKER) (test code = 2801) FL, [id number] 11:34:00Gastrografin studyReason for exam:->POST-OP PROBLEMpost endocscopy 1 month ago [facility] [place] : 1945 Sex: MFINAL REPORT Gastrografin esophagogram Clinical History: POST-OP PROBLEM Discussion: Gastrografin is given to the patient to drink, without difficulties. The esophageal motility, caliber, and gastroesophageal junction are normal. Esophageal mucosa is suboptimally evaluated, but appears unremarkable. There is no contrast extravasation. Fluoro time: 0.5 minutes Numb er of images obtained: 6 Signed: Jim Espana Verified Date/Time: 07/04/2021 11:34:49 Reading Location: [facility] C013X Ortho Consult Reading Room Electronically signed by: JIM ESPANA M.D. on07/04/2021 11:34 AMBASIC METABOLIC [id number] 04:39:36 Test Item Value Reference Range Interpretation Comments SODIUM (BEAKER) 143 meq/L 136-145 (test code = 381) POTASSIUM (BEAKER) 3.2 meq/L 3.5-5.1 L (test code = 379) CHLORIDE (BEAKER) 107 meq/L 98-107 (test code = 382) CO2 (BEAKER) (test 25 meq/L 22-29 code = 355) BLOOD UREA NITROGEN 11 mg/dL 7-21 (BEAKER) (test code = 354) CREATININE (BEAKER) 0.87 mg/dL 0.57-1.25 (test code = 358) GLUCOSE RANDOM 89 mg/dL 70-105 (BEAKER) (test code = 652) CALCIUM (BEAKER) 9.1 mg/dL 8.4-10.2 (test code = 697) EGFR (BEAKER) (test 85 mL/min/1.73 ESTIMA LA GFR IS code = 1092) sq m NOT ACCURATE CREATININE CLEARANCE IN PREDICTING GLOMERULAR FILTRATION RATE . ESTIMATED GFR I S NOT APPLICABLE FOR DIALYSIS PATIEN TS. Clip On Sunglasses Inspector ID - MARZENA MSARS-COV2/RT-PCR ([facility])2021-07-03 17:50:45 Test Item Value Reference Range Interpretation Comments SARS-COV2/RT-PCR Negative Negative The SARS-Co V-2 target (test code = nucleic acids a re not 4584495) detected in thi s specimen. Negative result s do not preclude SARS-C oV-2 infection and s hould not be used as the yolanda e basis for patient managem ent decisions. Nega tive results must be combine d with clinical observ ations, patient history , and epidemiological information. A false negativ e result may occur if a spec imen is improperly mario ected, transported or handled. This SARS CoV-2 [...] revoked sooner. Fact Sheet for Healthcare Providers: https://www.[employer] [place]/Documents/Xpert%20Xpress%20SARS%20CoV-2/Fact%20Sheets/262-5978%20SARS-COV -2%20HEALTHCARE%20PROVIDERS%20FACT%20SHEET.pdf Fact Sheet for Healthcare Patients: https://www.[employer]/Documents/Xpert %20Xpress%20SARS%20CoV-2/Fact%20Sheets/153-9856%43KILS-AOP-2%20PATIENT%20FACT%20 SHEET.mduE-[id number] 17:04:25 Test Item Value Reference Range Interpretation [...] of thrombosis is within 95-100% range.BLOOD GAS, [id number] 16:22:57 Test Item Value Reference Range Interpretation [...] code = 1819) 21.0 RAD, CHEST, 2 [id number] 14:40:00Reason for exam:->CHEST PAIN since endoscopy a month [facility]sc[facility] 1945 Sex: MFINAL REPORT EXAM: Chest one view COMPARISON: May 15, 2021 CLINICAL HISTORY: Chest pain FINDINGS: Minimal blunting of bilateral posterior costophrenic sulci are noted which may represent small effusions. The cardiac size remains enlarged. There is no evidence of pulmonary consolidation or pneumothorax. The regional osseous structures are unremarkable. Signed:Senia Ackerman MDReport Verified Date/Time: 07/03/2021 14:40:03 [id number] 14:12:25 Test Item Value Reference Range Interpretation Comments LIPASE (BEAKER) (test code = 749) 22 U/L 8-78 Clip On Sunglasses Inspector ID - DBCOMPREHENSIVE METABOLIC [id number] 14:12:24 Test Item Value Reference Range Interpretation [...] S NOT APPLICABLE FOR DIALYSIS PATIEN TS. Clip On Sunglasses Inspector ID - DBHIGH SENSITIVITY TROPONIN [id number] 14:10:43 Test Item Value Reference Range Interpretation Comments HIGH SENSITIVITY 7 pg/ml See_Comment [Automated message] TROPONIN I (test code = The system which 7223678) generated this result transmitted ref erence range: <=35. Th e reference range was not used to interpr et this result as normal/abnormal . Clip On Sunglasses Inspector ID - RMThe SENIOR CYTOGENETICS LABORATORY DIRECTOR STAT High Sensitivity Troponin-I results should be used in conjunctionwith other diagnostic information such as ECG, clinical observations and information, and patient symptoms to aid in the diagnosis of CO.B-TYPE NATRIURETIC FACTOR (BNP)2021-07-03 14:09:26 Test Item Value Reference Range Interpretation Comments B-TYPE NATRIURETIC PEPTIDE (BEAKER) 515 pg/mL 0-100 H (test code = 700) Clip On Sunglasses Inspector ID - RMCBC W/PLT COUNT & AUTO [id number] 13:39:07 Test Item Value Reference Range Interpretation [...] (BEAKER) (test code = 2801) HEMOGLOBIN AND [id number] 05:07:16 Test Item Value Reference Range Interpretation Comments HEMOGLOBIN (BEAKER) (test code = 7.9 GM/DL 13.7-17.5 L 410) HEMATOCRIT (BEAKER) (test code = 26.4 % 40.1-51.0 L 411) Clip On Sunglasses Inspector ID - [id number] AND [id number] 18:44:57 Test Item Value Reference Range Interpretation Comments HEMOGLOBIN (BEAKER) (test code = 8.7 GM/DL 13.7-17.5 L 410) HEMATOCRIT (BEAKER) (test code = 29.7 % 40.1-51.0 L 411) Clip On Sunglasses Inspector ID - [id number] AND [id number] 11:29:37 Test Item Value Reference Range Interpretation Comments HEMOGLOBIN (BEAKER) (test code = 8.3 GM/DL 13.7-17.5 L 410) HEMATOCRIT (BEAKER) (test code = 28.5 % 40.1-51.0 L 411) Clip On Sunglasses Inspector ID - [id number] AND [id number] 04:51:37 Test Item Value Reference Range Interpretation Comments HEMOGLOBIN (BEAKER) (test code = 7.9 GM/DL 13.7-17.5 L 410) HEMATOCRIT (BEAKER) (test code = 26.9 % 40.1-51.0 L 411) Clip On Sunglasses Inspector ID - [id number] AND [id number] 16:42:26 Test Item Value Reference Range Interpretation Comments HEMOGLOBIN (BEAKER) (test code = 8.6 GM/DL 13.7-17.5 L 410) HEMATOCRIT (BEAKER) (test code = 29.4 % 40.1-51.0 L 411) Clip On Sunglasses Inspector ID - [id number] METABOLIC [id number] 09:04:40 Test Item Value Reference Range Interpretation [...] S NOT APPLICABLE FOR DIALYSIS PATIEN TS. Clip On Sunglasses Inspector ID - ROSIANGHEMOGLOBIN AND [id number] 08:41:52 Test Item Value Reference Range Interpretation Comments HEMOGLOBIN (BEAKER) (test code = 7.6 GM/DL 13.7-17.5 L 410) HEMATOCRIT (BEAKER) (test code = 26.5 % 40.1-51.0 L 411) Clip On Sunglasses Inspector ID - [id number]-COV2/RT-PCR ([facility])2021-05-23 19:59:55 Test Item Value Reference Range Interpretation Comments SARS-COV2/RT-PCR Negative Negative The SARS-Co V-2 target (test code = nucleic acids a re not 1267314) detected in thi s specimen. Negative result s do not preclude SARS-C oV-2 infection and s hould not be used as the yolanda e basis for patient managem ent decisions. Nega tive results must be combine d with clinical observ ations, patient history , and epidemiological information. A false negativ e result may occur if a spec imen is improperly mario ected, transported or handled. This SARS CoV-2 [...] revoked sooner. Fact Sheet for Healthcare Providers: https://www.[employer] [place]/Documents/Xpert%20Xpress%20SARS%20CoV-2/Fact%20Sheets/899-5367%20SARS-COV -2%20HEALTHCARE%20PROVIDERS%20FACT%20SHEET.pdf Fact Sheet for Healthcare Patients: https://www.[employer]/Documents/Xpert %20Xpress%20SARS%20CoV-2/Fact%20Sheets/728-6033%95IFMN-MQW-8%20PATIENT%20FACT%20 SHEET.pdfCOMPREHENSIVE METABOLIC [id number] 17:17:21 Test Item Value Reference Range Interpretation [...] S NOT APPLICABLE FOR DIALYSIS PATIEN TS. Clip On Sunglasses Inspector ID - LUDA [id number] 17:17:21 Test Item Value Reference Range Interpretation Comments LIPASE (BEAKER) (test code = 749) 31 U/L 8-78 Clip On Sunglasses Inspector ID - LUDA FPT/[id number] 16:55:15 Test Item Value Reference Range Interpretation [...] (BEAKER) (test code = 2801) BASIC METABOLIC [id number] 04:38:30 Test Item Value Reference Range Interpretation [...] S NOT APPLICABLE FOR DIALYSIS PATIEN TS. Clip On Sunglasses Inspector ID - DBCBC W/PLT COUNT & AUTO [id number] 04:21:40 Test Item Value Reference Range Interpretation [...] (BEAKER) (test code = 2801) BASIC METABOLIC [id number] 07:03:04 Test Item Value Reference Range Interpretation [...] S NOT APPLICABLE FOR DIALYSIS PATIEN TS. Clip On Sunglasses Inspector ID - PIAYA LCBC (HEMOGRAM ONLY)2021-05-17 04:38:47 [...] (BEAKER) (test code = 413) HEMOGLOBIN AND [id number] 20:18:40 Test Item Value Reference Range Interpretation Comments HEMOGLOBIN (BEAKER) (test code = 7.7 GM/DL 13.7-17.5 L 410) HEMATOCRIT (BEAKER) (test code = 25.7 % 40.1-51.0 L 411) Clip On Sunglasses Inspector ID - [id number] METABOLIC [id number] 06:32:43 Test Item Value Reference Range Interpretation [...] S NOT APPLICABLE FOR DIALYSIS PATIEN TS. Clip On Sunglasses Inspector ID - MARZENA MCBC W/PLT COUNT & AUTO [id number] 06:09:12 Test Item Value Reference Range Interpretation [...] (BEAKER) (test code = 2801) HEMOGLOBIN AND [id number] 00:13:44 Test Item Value Reference Range Interpretation Comments HEMOGLOBIN (BEAKER) (test code = 8.0 GM/DL 13.7-17.5 L 410) HEMATOCRIT (BEAKER) (test code = 28.1 % 40.1-51.0 L 411) Clip On Sunglasses Inspector ID - [id number]-COV2/RT-PCR ([facility])2021-05-15 18:07:21 Test Item Value Reference Range Interpretation Comments SARS-COV2/RT-PCR Negative Negative The SARS-Co V-2 target (test code = nucleic acids a re not 6767143) detected in thi s specimen. Negative result s do not preclude SARS-C oV-2 infection and s hould not be used as the yolanda e basis for patient managem ent decisions. Nega tive results must be combine d with clinical observ ations, patient history , and epidemiological information. A false negativ e result may occur if a spec imen is improperly mario ected, transported or handled. This SARS CoV-2 test is a rapid, real-oskar e RT-PCR test intended for e qualitative detection of nu cleic acid from SARS-CoV-2 in a nasopharyngeal swab specimen collected from individuals suspected of CO VID-19 by [facility] provider. This test has [...] revoked sooner. Fact Sheet for Healthcare Providers: https://www.[employer] [place]/Documents/Xpert%20Xpress%20SARS%20CoV-2/Fact%20Sheets/3023802%20SARS-COV -2%20HEALTHCARE%20PROVIDERS%20FACT%20SHEET.pdf Fact Sheet for Healthcare Patients: https://www.[employer]/Documents/Xpert %20Xpress%20SARS%20CoV-2/Fact%20Sheets/3023801%23PIKS-MAE-0%20PATIENT%20FACT%20 SHEET.pdfHIGH SENSITIVITY TROPONIN [id number] 15:44:19 Test Item Value Reference Range Interpretation Comments HIGH SENSITIVITY 6 pg/ml See_Comment [Automated message] TROPONIN I (test code = The system which 1191151) generated this result transmitted ref erence range: <=35. Th e reference range was not used to interpr et this result as normal/abnormal . Clip On Sunglasses Inspector ID - DBThe SENIOR CYTOGENETICS LABORATORY DIRECTOR STAT High Sensitivity Troponin-I results should be used in conjunctionwith other diagnostic information such as ECG, clinical observations and information, and patient symptoms to aid in the diagnosis of CO.[id number] 15:36:53 Test Item Value Reference Range Interpretation Comments MAGNESIUM (BEAKER) (test code = 2.1 mg/dL 1.6-2.6 627) Clip On Sunglasses Inspector ID - [id number] 15:36:53 Test Item Value Reference Range Interpretation Comments PHOSPHORUS (BEAKER) (test code = 3.3 mg/dL 2.3-4.7 604) Clip On Sunglasses Inspector ID - DBCOMPREHENSIVE METABOLIC [id number] 15:36:52 Test Item Value Reference Range Interpretation [...] S NOT APPLICABLE FOR DIALYSIS PATIEN TS. Clip On Sunglasses Inspector ID - DBCBC W/PLT COUNT & AUTO [id number] 15:12:30 Test Item Value Reference Range Interpretation [...] = 2801) RAD, CHEST, 1 VIEW, NON [id number] 13:55:00Reason for exam:->MELENAReason for exam:->GENERAL ILLNESSReason for exam:->GENERALIZED WEAKNESS, NOT ASSOCIATED WITH EXTREMITIESShould this be performed at the bedside?->Yes [facility] 1945 Sex: MFINAL REPORT INDICATION: MELENAGENERAL ILLNESSGENERALIZED WEAKNESS, NOT ASSOCIATED WITH EXTREMITIES COMPARISON: 05/01/2021 TECHNIQUE: Single frontal view of the chest. FINDINGS: Lungs and pleura: Clear lungs. No effusion.Heart and mediastinum: Normal heart size. Unremarkable mediastinal contours.Osseous structures: No acute abnormality.Other: None. IMPRESSION: No acute intrathoracic abnormality. Signed: Griselda Cordero MDReplauri Verified Date/Time: 05/15/2021 13:55:04 Reading Location: [facility] Radiology Reading Room [id number] 07:19:33 Test Item Value Reference Range Interpretation Comments MAGNESIUM (BEAKER) (test code = 2.4 mg/dL 1.6-2.6 627) Clip On Sunglasses Inspector ID - PIAYA LBASIC METABOLIC [id number] 07:19:32 Test Item Value Reference Range Interpretation [...] S NOT APPLICABLE FOR DIALYSIS PATIEN TS. Clip On Sunglasses Inspector ID - PIAYA LCBC W/PLT COUNT & AUTO [id number] 06:34:22 Test Item Value Reference Range Interpretation [...] (test code = 2801) UREA NITROGEN, RANDOM [id number] 17:46:02 Test Item Value Reference Range Interpretation Comments UREA NITROGEN URINE (BEAKER) (test 404 mg/dL code = 538) Reference Range: No NormalsOperator ID - BSSODIUM, RANDOM [id number] 17:46:01 Test Item Value Reference Range Interpretation Comments SODIUM URINE (BEAKER) (test code = 101 meq/L 243) Reference Range: No NormalsOperator ID - BSCREATININE, RANDOM [id number] 17:46:00 Test Item Value Reference Range Interpretation Comments CREATININE URINE (BEAKER) (test 61.7 mg/dL code = 375) Reference Range: No NormalsOperator ID - BSURINALYSIS WITH MICROSCOPIC IF [id number] 16:41:11 Test Item Value Reference Range Interpretation [...] = 463) SOURCE(BEAKER) (test code = 2795) Clip On Sunglasses Inspector ID - [auto]BLOOD [id number] 11:01:01 Test Item Value Reference Range Interpretation Comments CULTURE (BEAKER) (test No growth in 5 days code = 1095) BLOOD [id number] 11:01:01 Test Item Value Reference Range Interpretation Comments CULTURE (BEAKER) (test No growth in 5 days code = 1095) The specimen volume collected for this blood culture was below the optimum (10 mL per bottle or 20 mL total). Use of lower volumes may adversely affect recovery and/or detection times of some organisms.[id number] 05:38:27 Test Item Value Reference Range Interpretation Comments MAGNESIUM (BEAKER) (test code = 2.3 mg/dL 1.6-2.6 627) Clip On Sunglasses Inspector ID - PIAYA LBASIC METABOLIC [id number] 05:38:26 Test Item Value Reference Range Interpretation [...] S NOT APPLICABLE FOR DIALYSIS PATIEN TS. Clip On Sunglasses Inspector ID - PIAYA LPROTHROMBIN TIME/[id number] 05:23:25 Test Item Value Reference Range Interpretation Comments PROTIME (BEAKER) 16.9 seconds 11.9-14.2 H (test code = 759) INR (BEAKER) (test 1.39 See_Comment [Automat ed message] code = 370) The system [employer] generated this result transmitted ref erence range: [...] (BEAKER) (test code = 2801) COMPREHENSIVE METABOLIC [id number] 16:17:38 Test Item Value Reference Range Interpretation [...] S NOT APPLICABLE FOR DIALYSIS PATIEN TS. Clip On Sunglasses Inspector ID - DBSARS-COV2/RT-PCR ([facility])2021-05-08 12:32:16 Test Item Value Reference Range Interpretation Comments SARS-COV2/RT-PCR (test Negative Not Detected, Negative, code = 1713600) See external report for linked test SARS-COV-2 [facility] (test code = 9634086) Negative result for this test determines that [...] 564(g) of the Act.Fact Sheet for Healthcare Providers:https://www.[employer]/sites/default/files/product/documents/Fact_Sherajesh navaw_ZD_Fxcshaled_Kjdy_IENI-ToF-7.pdfFact Sheet for Healthcare Patients:https://www.[employer]/sites/default/files/product/ documents/Auhh_Hhtfs_Usxrbdya_Pfwl_YLUZ-HfC-6.pdfPerforming Laboratory:[place] [address] [place], [place] [address]RXB (HEMOGRAM ONLY) 2021-05-08 06:41:47 Test Item Value [...] code = 413) MYOCARD IMAGING, MULTI, PHARM, [id number] 13:41:00Unlisted Reason for Exam - Click Yes and Enter Reason Below->No [facility] 1945 Sex: MFINAL REPORT PROCEDURE: Rest/Stress MYOCARDIAL PERFUSION SPECT with regadenoson\\XA9\\ CPT CODE: 68461 INDICATION: Chest pain PROTOCOL: 10.6 mCi of [...] attenuation effect. 4. No prior study. Signed: Ishmael Collado MDReport Verified Date/Time: 05/07/2021 13:41:19 CBC (HEMOGRAM [...] (BEAKER) (test code = 413) BASIC METABOLIC [id number] 06:10:10 Test Item Value Reference Range Interpretation [...] S NOT APPLICABLE FOR DIALYSIS PATIEN TS. Clip On Sunglasses Inspector ID - SHANE GCBC (HEMOGRAM ONLY)2021-05-06 05:35:30 [...] 0-0 H (BEAKER) (test code = 413) [id number] 17:04:33 Test Item Value Reference Range Interpretation Comments PARTIAL THROMBOPLASTIN TIME 75.5 seconds 22.5-36.0 H (BEAKER) (test code = 760) [id number] 08:48:29 Test Item Value Reference Range Interpretation Comments PARTIAL THROMBOPLASTIN TIME 39.1 seconds 22.5-36.0 H (BEAKER) (test code = 760) [id number] 07:02:01 Test Item Value Reference Range Interpretation [...] (BEAKER) (test code = 413) BASIC METABOLIC [id number] 06:36:45 Test Item Value Reference Range Interpretation [...] S NOT APPLICABLE FOR DIALYSIS PATIEN TS. Clip On Sunglasses Inspector ID - SHANE [id number] 22:11:03 Test Item Value Reference Range Interpretation Comments PARTIAL THROMBOPLASTIN TIME 88.2 seconds 22.5-36.0 H (BEAKER) (test code = 760) PERIPHERAL BLOOD SMEAR - PATHOLOGIST [id number] 18:22:51 Test Item Value Reference Range Interpretation Comments PERIPHERAL SMR Microcytic hypochromic REVIEW (BEAKER) anemia with marked (test code = 2640) anisopoikilocytosis and polychromasia, consistent with history of LEESA. Leukocytosis with predominantly mature granulocytes. No blasts seen. Adequate platelets with unremarkable morphology. ARSC-DPLAZHTUOEJ-3 Andreina Schmidt, 112 (BEAKER) (test M.D code [...] (BEAKER) (test code 2+ moderate = 966) [id number] 12:13:05 Test Item Value Reference Range Interpretation Comments PARTIAL THROMBOPLASTIN TIME 55.6 seconds 22.5-36.0 H (BEAKER) (test code = 760) TISSUE [id number] 11:53:42Surgical Pathology Report Case: [id number] Authorizing Provider: Yolanda [place] MD Collected: 05/03/2021 10:38 AM Ordering Location: [address] Received: 05/03/2021 02:25 PM Service Pathologist: Ciro Diamond MD Specimen: Polyp, Colon - Right/Ascending, x3 PART A RIGHT ASCENDING COLON POLYPX3, POLYPECTOMY:TUBULAR ADENOMA Signing Pathologist Direct Phone Line: [phone] signed by Ciro Diamond MD on 05/04/2021 at 11:53 [id number] colonReceived in formalin labeled the patient's name, accession number and "ascending colon polyp" are multiple chavez soft tissue fragments measuring up to 0.5 cm in greatest dimension which are filtered and submitted in toto in A1.URSULA Martell, HT (ASCP)performedBaWestside Hospital– [place], Department of Pathology, [address] [place] [address], [facility], [facility] of [facility], [address] [place] [address], [facility], Department of Pathology, [address] [place] [address], [id number] 11:13:03 Test Item Value Reference Range Interpretation Comments PARTIAL THROMBOPLASTIN TIME > seconds 22.5-36.0 HH (BEAKER) (test code = 760) URINALYSIS [id number] 10:30:34 Test Item Value Reference Range Interpretation Comments RBC UA (BEAKER) (test code = 519) 3 /HPF WBC UA (BEAKER) (test code = 520) 2 /HPF BACTERIA (BEAKER) (test code = None Seen 517) MUCUS (BEAKER) (test code = 1574) Moderate CRYSTALS, URINE (BEAKER) (test None Seen code = 1521) AMORPHOUS CRYSTALS (BEAKER) (test Occasional code = 1584) Clip On Sunglasses Inspector ID - techURINALYSIS WITH MICROSCOPIC IF [id number] 10:23:22 Test Item Value Reference Range Interpretation [...] = 463) SOURCE(BEAKER) (test code = 2795) Clip On Sunglasses Inspector ID - [auto]BASIC METABOLIC [id number] 06:55:55 Test Item Value Reference Range Interpretation [...] S NOT APPLICABLE FOR DIALYSIS PATIEN TS. Clip On Sunglasses Inspector ID - SHANE GCBC (HEMOGRAM ONLY)2021-05-04 06:35:01 [...] 0-0 (BEAKER) (test code = 413) BLOOD [id number] 18:01:00 Test Item Value Reference Range Interpretation Comments CULTURE (BEAKER) (test No growth in 5 days code = 1095) BLOOD [id number] 18:00:59 Test Item Value Reference Range Interpretation Comments CULTURE (BEAKER) (test No growth in 5 days code = 1095) TISSUE [id number] 17:23:09Surgical Pathology Report Case: [id number] Authorizing Provider: Yolanda [place] MD Collected: 05/02/2021 03:08 PM Ordering Location: [address] Received: 05/03/2021 09:22 AM Service Pathologist: [...] ORINVASIVE CARCINOMA. Signing Pathologist Direct Phone Line: [phone] signed by Ciro Diamond MD on 05/03/2021 at 5:23 [id number], [id number] iron deficiency anemiaA. Duodenum tissue, rule out [...] evaluated Immunohistochemistry technical testing was performed at [facility], Pathology Laboratory where it was developed and [...] qualified to perform high complexity clinical laboratory testing.[facility], Department of Pathology, [address] [place] [address], [facility], [facility] of [facility], [address] [place] [address], [facility], Department of [facility], [address] [place] [address], PUOXV METABOLIC PANEL 2021-05-03 06:21:43 Test Item Value [...] S NOT APPLICABLE FOR DIALYSIS PATIEN TS. Clip On Sunglasses Inspector ID - MARZENA MTSH/FREE T4 IF [id number] 05:55:30 Test Item Value Reference Range Interpretation Comments THYROID STIMULATING HORMONE 0.869 uIU/mL 0.350-4.940 (BEAKER) (test code = 772) Clip On Sunglasses Inspector ID - MARZENA MB-TYPE NATRIURETIC FACTOR (BNP)2021-05-03 05:32:14 Test Item Value Reference Range Interpretation Comments B-TYPE NATRIURETIC PEPTIDE (BEAKER) 452 pg/mL 0-100 H (test code = 700) Clip On Sunglasses Inspector ID - MARZENA MCBC (HEMOGRAM ONLY)2021-05-03 05:22:14 [...] CONCENTRATION Adequate (CELLAVISION)(BEAKER) (test code = 3438) Clip On Sunglasses Inspector ID - Luca Perry comments: Slide comments:CBC W/PLT COUNT & AUTO [id number] 11:59:17 Test Item Value Reference Range Interpretation [...] (BEAKER) (test code = 413) BASIC METABOLIC [id number] 09:20:42 Test Item Value Reference Range Interpretation [...] S NOT APPLICABLE FOR DIALYSIS PATIEN TS. Clip On Sunglasses Inspector ID - KEARA WPT/[id number] 09:05:40 Test Item Value Reference Range Interpretation [...] 2.5-3.5 for patients with mechanical heart valves.SARS-COV2/RT-PCR ([facility]) 2021-05-01 12:34:25 Test Item Value Reference Range Interpretation Comments SARS-COV2/RT-PCR (test Negative Not Detected, Negative, code = 5714418) See external report for linked test SARS-COV-[address] [facility] (test code = 8095695) Negative result for this test determines that [...] 564(g) of the Act.Fact Sheet for Healthcare Providers:https://www.[employer]/sites/default/files/product/documents/Fact_Shee l_HD_Gohljxbfs_Ugkh_EFDN-QgF-2.pdfFact Sheet for Healthcare Patients:https://www.[employer]/sites/default/files/product/ documents/Otbw_Bbjta_Pqcbofhg_Vzxw_IZXC-DaI-8.pdfPerforming Laboratory:[facility], [place] [address]ZQP, CHEST, 1 VIEW, NON [id number] 09:29:00Reason for exam:->shortness of breathShould this be performed at the bedside?->Yes [facility] 1945 Sex: MFINAL REPORT Chest AP portable History provided: Shortness of breath Heart size magnified by projection. Lungs are clear and vascularity normal. Signed: Lobo Jeffers Verified Date/Time: 05/01/2021 09:29:27 Reading Location: [facility] Radiology Reading Room CBC (HEMOGRAM [...] (BEAKER) (test code = 413) BASIC METABOLIC [id number] 06:24:43 Test Item Value Reference Range Interpretation [...] S NOT APPLICABLE FOR DIALYSIS PATIEN TS. Clip On Sunglasses Inspector ID - KAYLEEN LBASIC METABOLIC [id number] 15:17:17 Test Item Value Reference Range Interpretation [...] S NOT APPLICABLE FOR DIALYSIS PATIEN TS. [employer]unglasses Inspector ID - [id number] W/PLT COUNT & AUTO [id number] 14:42:15 Test Item Value Reference Range Interpretation [...] (BEAKER) (test code = 2801) HEMOGLOBIN AND [id number] 14:41:31 Test Item Value Reference Range Interpretation Comments HEMOGLOBIN (BEAKER) (test code = 9.7 GM/DL 13.7-17.5 L 410) HEMATOCRIT (BEAKER) (test code = 33.4 % 40.1-51.0 L 411) [employer] Sunglasses Inspector ID - [id number], [id number] 02:24:00Unlisted Reason for Exam - Click Yes and Enter Reason Below->NoWill this procedure require oral co ntrast?->No[facility] : 1945 [...] cysts.Punctate nonobstructing left renal stone. Signed: Aman Todd [facility] Verified Date/Time:04/30/2021 02:24:34 HEMOGLOBIN [id number] 09:35:28 Test Item Value Reference Range Interpretation Comments HEMOGLOBIN A1C (BEAKER) (test code = 6.6 % 4.3-6.1 H 368) HEPATIC FUNCTION [id number] 05:59:52 Test Item Value Reference Range Interpretation [...] (test code = 38 U/L 6-55 347) [employer] Inspector ID - MARZENA [id number] 05:59:50 Test Item Value Reference Range Interpretation Comments MAGNESIUM (BEAKER) (test code = 2.9 mg/dL 1.6-2.6 H 627) [employer]lasses Inspector ID - MARZENA MLIPID [id number] 05:59:50 Test Item Value Reference Range Interpretation [...] Borderline 130-159 High 160-189 Very High >=190 [employer] Inspector ID - MARZENA MBASIC METABOLIC [id number] 05:59:49 Test Item Value Reference Range Interpretation [...] S NOT APPLICABLE FOR DIALYSIS PATIEN TS. [employer]lasses Inspector ID - MARZENA MB-TYPE NATRIURETIC FACTOR (BNP)2021-04-29 05:49:20 Test Item Value Reference Range Interpretation Comments B-TYPE NATRIURETIC PEPTIDE (BEAKER) 329 pg/mL 0-100 H (test code = 700) [employer] S[employer]lasses Inspector ID - [id number] 05:43:23 Test Item Value Reference Range Interpretation Comments PROTIME (BEAKER) 15.3 seconds 11.9-14.2 H (test code = 759) INR (BEAKER) (test 1.23 See_Comment [Automat ed message] code = 370) The system [employer] generated this result transmitted ref erence range: [...] (BEAKER) (test code = 2801) BASIC METABOLIC [id number] 20:29:00 Test Item Value Reference Range Interpretation [...] S NOT APPLICABLE FOR DIALYSIS PATIEN TS. [employer]lasses Inspector ID - [id number] 16:56:00 Test Item Value Reference Range Interpretation Comments FERRITIN (BEAKER) (test code = 13.77 ng/mL 5.00-275.00 361) [employer]lasses Inspector ID - DBHIGH SENSITIVITY TROPONIN [id number] 16:42:00 Test Item Value Reference Range Interpretation Comments HIGH SENSITIVITY 13 pg/ml See_Comment [Automated message] TROPONIN I (test code = The system which [id number]) generated this result transmitted ref erence range: <=35. Th e reference range was not used to int erpret this result as normal/abnormal . [employer] Sunglasses Inspector ID - DBThe SENIOR CYTOGENETICS LABORATORY DIRECTOR STAT High Sensitivity Troponin-I results should be used in conjunctionwith other diagnostic information such as ECG, clinical observations and information, and patient symptoms to aid in the diagnosis of CO.HIGH SENSITIVITY TROPONIN [id number] 16:41:00 Test Item Value Reference Range Interpretation Comments HIGH SENSITIVITY 15 pg/ml See_Comment [Automated message] TROPONIN I (test code = The system which [id number]) generated this result transmitted ref erence range: <=35. Th e reference range was not used to int erpret this result as normal/abnormal . [employer] Sunglasses Inspector ID - DBThe SENIOR CYTOGENETICS LABORATORY DIRECTOR STAT High Sensitivity Troponin-I results should be used in conjunctionwith other diagnostic information such as ECG, clinical observations and information, and patient symptoms to aid in the diagnosis of CO.IRON, TIBC, % SAT. (WITHOUT FERRITIN)2021-04-28 16:35:00 Test Item Value Reference Range Interpretation Comments IRON (BEAKER) (test code = 547) 22.0 ug/dL 40.0-160.0 L TOTAL IRON BINDING CAPACITY 473 ug/dL 250-450 H (BEAKER) (test code = 769) IRON % SATURATION (2) (BEAKER) 5 % 20-55 L (test code = 2590) [employer] S[employer]lasses Inspector ID - DBHEMOGLOBIN AND [id number] 15:56:00 Test Item Value Reference Range Interpretation Comments HEMOGLOBIN (BEAKER) (test code = 9.2 GM/DL 13.7-17.5 L 410) HEMATOCRIT (BEAKER) (test code = 30.6 % 40.1-51.0 L 411) Cl[employer] Sunglasses Inspector ID - [id number]
[2022-03-10 11:00] LABS: Absolute Lymphocytes (CBC) 1.4 K/uL (0.7-4.9); Hematocrit 30.4 % (39.6-49.0); Lymphocytes % 23.1 % (15.3-44.8); MCV 80.5 fL (80-100); MPV 7.1 fL (7.6-11.3); RBC Red Blood Cell Count 3.78 M/uL (4.33-5.43)
--- NOTE | 2022-03-10 11:03 | RAD REPORT ---
EXAM DESCRIPTION: CT - Head Brain Wo Cont - 03/10/2022 10:58 am CLINICAL HISTORY: dizziness COMPARISON: Head Brain Wo Cont dated 08/23/2021; Head Brain Wo Cont dated 06/03/2017 TECHNIQUE: All CT scans are performed using dose optimization technique as appropriate and may inclu de automated exposure control or mA/KV adjustment according to patient size. FINDINGS: No intracranial hemorrhage, hydrocephalus or extra-axial fluid collection.No areas of brai n edema or evidence of midline shift. The paranasal sinuses and mastoids are clear. The calvarium is intact. IMPRESSION: No acute intracranial abnormality.
[2022-03-10] MEDS ORDERED: MECLIZINE HCL 12.5 MG TAB ONE (11:04)
--- NOTE | 2022-03-10 11:08 | RAD REPORT ---
EXAM DESCRIPTION: RAD - Chest Single View - 03/10/2022 10:46 am CLINICAL HISTORY: dizziness COMPARISON: Chest Single View dated 08/23/2021; Chest Single View dated 07/25/2021; Chest Single View d ated 07/24/2021; Chest Single View dated 07/21/2021 FINDINGS: Lines: None. Lungs: No evidence of edema or pneumonia. Pleural: No significant pleural effusions or pneumothorax. Cardiac: The heart size is within normal limits. Bones: No acute fractures. Other: IMPRESSION: No acute cardiopulmonary disease.
[2022-03-10 11:12] LABS: Protime INR 1.97
[2022-03-10 12:16] LABS: Urine Blood Trace-intact (Negative); Urine Glucose Negative (Negative); Urine Protein Negative (Negative); Urine Specific Gravity 1.025 (1.005-1.030)
[2022-03-10 12:38] LABS: Urine Bacteria None Seen /HPF (<20); Urine Mucus 1+ /HPF (None Seen); Urine RBC None Seen /HPF (None Seen)
[2022-03-10] MEDS ORDERED: DIAZEPAM 5 MG TABLET ONE (13:03)
--- NOTE | 2022-03-10 14:17 | EDPHYS ---
Physician Documentation [facility] Name: Oleg Giles Age: 76 yrs Sex: Male : 1945 Arrival Date: 03/10/2022 Time: 09:55 Bed 15 Private MD: Willy Deshpande R ED Physician Valeria Shelton HPI: 03/10 10:41 This 76 yrs old Male presents to ER via Wheelchair with complaints of sd2 Weakness, Vision Problem, Trouble Walking. 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 Dizziness is room spinning sensation and worsened with movements of his head and standing or walking. He has had difficulty ambulating due to feeling off balance. Denies any associated fever, recent illness, CP, SOB, vomiting or diarrhea. Has had some associated nausea. States had mild version of current symptoms many years ago but resolved on its own at that time.. Historical: - Allergies: 10:04 No Known Allergies; vg1 - PMHx: 10:04 Atrial fibrillation; Congestive heart failure; Heart Murmur; Hypercholesterolemia; vg1 Hypertensive disorder; Pneumonia; - PSHx: 10:04 cataract repair; vg1 - Immunization history:: Client reports receiving the 2nd dose of the Covid vaccine. - Social history:: Smoking status: Patient denies any tobacco usage or history of. ROS: 10:41 Constitutional: Negative for fever, chills, and weight loss, Eyes: Negative for injury, sd2 pain, redness, and discharge. Positive for blurred vision. Cardiovascular: Negative for chest pain, palpitations, and edema, Respiratory: Negative for shortness of breath, cough, wheezing. Abdomen/GI: Negative for abdominal pain, vomiting, diarrhea. Positive for nausea MS/Extremity: Negative for injury and deformity, Skin: Negative for injury, rash, and discoloration, Neuro: Negative for headache, numbness and tingling. Positive for dizziness. Hematologic/Lymphatic: Negative for swollen nodes, abnormal bleeding, and unusual bruising. Exam: 10:41 Constitutional: This is a well developed, well nourished patient who is awake, alert, sd2 and in no acute distress. Head/Face: Normocephalic, atraumatic. Eyes: EOMI, normal conjunctiva bilaterally Chest/axilla: Normal chest wall appearance and motion. Nontender with no deformity. Cardiovascular: Regular rate and rhythm with a normal S1 and S2. No gallops, murmurs, or rubs. 2+ distal pulses. Respiratory: Lungs have equal breath sounds bilaterally, clear to auscultation and percussion. No rales, rhonchi or wheezes noted. No increased work of breathing, no retractions or nasal flaring. Abdomen/GI: Soft, non-tender, with normal bowel sounds. No guarding or rebound. No evidence of tenderness throughout. Skin: Warm, dry with normal turgor. Normal color with no rashes, no lesions, and no evidence of cellulitis. MS/ Extremity: Pulses equal, no cyanosis. Neurovascular intact. Full, normal range of motion. Ambulatory without difficulty. Neuro: Awake and alert, GCS 15, oriented to person, place, time, and situation. Cranial nerves II-XII grossly intact. Motor strength 5/5 in all extremities. Sensory grossly intact. Cerebellar exam normal. Some difficulty with ambulation requiring assistance from WC to stretcher. 10:58 ECG was reviewed by the Attending Physician. Sinus bradycardia, rate 56, occasional PVC sd2 present, no STEMI criteria Vital Signs: 09:58 BP 161 / 63; Pulse 60; Resp 16; Temp 98.2; Pulse Ox 100% on R/A; Weight 83.91 kg; vg1 Height 5 ft. 6 in. (167.64 cm); Pain 0/10; 11:20 BP 165 / 69; Pulse 52; Resp 16; Pulse Ox 100% ; jg9 12:30 BP 167 / 60; Pulse 52; Resp 18 S; Pulse Ox 100% on R/A; jg9 13:30 BP 177 / 60; Pulse 49; Resp 15 S; Pulse Ox 100% ; jg9 09:58 Body Mass Index 29.86 (83.91 kg, 167.64 cm) vg1 NIH Stroke Scale Scores: 10:45 NIHSS Score: 0 jg9 MDM: 10:13 Patient medically screened. sd2 10:41 Data reviewed: vital signs, nurses notes, lab test result(s), EKG, radiologic studies. sd2 Medical screen evaluation completed. EMTALA emergency medical condition absent. 14:12 Counseling: I had a detailed discussion with the patient and/or guardian regarding: the sd2 historical points, exam findings, and any diagnostic results supporting the discharge/admit diagnosis, lab results, radiology results, the need for further work-up and treatment in the hospital. Physician consultation: Kojo Calhoun MD was called at 13:53, was contacted at 13:53, regarding admission, and will see patient shortly. 14:12 ED course: Pt unable to ambulate and remains ataxic despite Meclizine and Valium. Labs sd2 otherwise grossly WNCL. Trop neg. EKG with no ischemic changes. UA without infection. CT head and CXR with no acute process. Discussed all results with patient and need for admission due to his inability to ambulate. Pt in agreement. . 03/10 10:16 Order name: Glucose, Ancillary Testing; Complete Time: 11:17 EDSD 03/10 10:29 Order name: Basic Metabolic Panel; Complete Time: 11:17 sd2 03/10 10:29 Order name: CBC with Diff; Complete Time: 11:17 sd2 03/10 10:29 Order name: Protime (+inr); Complete Time: 11:17 sd2 03/10 10:29 Order name: Ptt, Activated; Complete Time: 11:17 sd2 03/10 10:29 Order name: Urine Microscopic Only; Complete Time: 12:49 sd2 03/10 12:16 Order name: Urine Dipstick-Ancillary; Complete Time: 12:49 EDMS 03/10 14:00 Order name: SARS RAPID; Complete Time: 16:11 jg9 03/10 15:55 Order name: CBC with Automated Diff EDMS 03/10 15:55 Order name: CBC with Automated Diff EDMS 03/10 15:55 Order name: CBC with Automated Diff EDMS 03/10 15:55 Order name: Comprehensive Metabolic Panel EDMS 03/10 15:55 Order name: Comprehensive Metabolic Panel EDMS 03/10 15:55 Order name: Comprehensive Metabolic Panel EDSD 03/10 10:29 Order name: Stroke CXR 1 View; Complete Time: 11:17 sd2 03/10 10:58 Order name: Head Brain Wo Cont; Complete Time: 11:17 EDMS 03/10 15:44 Order name: MRA Head Wo Cont; Complete Time: 17:16 EDMS 03/10 15:45 Order name: Brain W/Wo Cont; Complete Time: 17:16 EDSD 03/10 15:45 Order name: MRA Neck W/Wo Cont; Complete Time: 17:16 EDSD 03/10 15:55 Order name: Magnesium [facility] 03/10 15:55 Order name: Magnesium [facility] 03/10 15:55 Order name: Phosphorus [facility] 03/10 15:55 Order name: Phosphorus [facility] 03/10 15:55 Order name: Protime (+INR) [facility] 03/10 15:55 Order name: Protime (+INR) [facility] 03/10 10:29 Order name: EKG; Complete Time: 10:30 03/10 10:29 Order name: Accucheck; Complete Time: 10:30 03/10 10:29 Order name: Cardiac monitoring; Complete Time: 10:31 03/10 10:29 Order name: EKG - Nurse/Tech; Complete Time: 10:31 03/10 10:29 Order name: IV Saline Lock; Complete Time: 10:43 03/10 10:29 Order name: Labs collected and sent; Complete Time: 11:00 03/10 10:29 Order name: NPO; Complete Time: 11:00 03/10 10:29 Order name: O2 Sat Monitoring; Complete Time: 11:00 03/10 10:29 Order name: Stroke Swallow Screen; Complete Time: 11:00 03/10 10:29 Order name: Urine Dipstick-Ancillary (obtain specimen); Complete Time: 12:48 03/10 15:55 Order name: CONS Physician Consult [facility] 03/10 15:55 Order name: Regular EDSD Administered Medications: 11:02 Drug: Meclizine 25 mg Route: PO; jg9 12:48 Follow up: Response: No adverse reaction; No change in condition jg9 12:58 Drug: Valium (diazepam) 5 mg Route: PO; jg9 13:45 Follow up: Response: No adverse reaction; No change in condition jg9 Point of Care Testing: Blood Glucose: 10:04 Blood Glucose: 146 mg/dL; vg1 Ranges: Critical Glucose Levels:Adult <50 mg/dl or >400 mg/dl <40 mg/dl or >180 mg/dl Disposition Summary: 03/10/22 14:17 Hospitalization Ordered Hospitalization Status: Inpatient Admission sd2 Provider: Kojo Calhoun Condition: Stable sd2 Problem: new sd2 Symptoms: are unchanged sd2 Bed/Room Type: Standard sd2 Location: Telemetry/MedSurg (Inpatient)(03/10/22 17:03) eb Room Assignment: 206(03/10/22 17:03) eb Diagnosis - Dizziness and giddiness sd2 - Acute Vertigo sd2 - Ataxia sd2 Forms: - Medication Reconciliation Form sd2 - SBAR form sd2 NIH Stroke Scale - NIH Stroke Score Date: 03/10/2022 Time: 10:45 Total Score = 0 1a. Level of Consciousness (LOC) - 0(Alert) 1b. Level of Consciousness (LOC) (Month \T\ Age) - 0(Both) 1c. LOC Commands (Open \T\ Closes Eyes/Fiction And Nonfiction Author) - 0(Both) 2. Best Gaze (Lateral Gaze Paresis) - 0(Normal) 3. Visual Field Loss - 0(No visual loss) 4. Facial Palsy - 0(Normal) 5a. Left Arm: Motor (10-second hold) - 0(No drift) 5b. Right Arm: Motor (10-second hold) - 0(No drift) 6a. Left Leg: Motor (5-second hold - always test supine) - 0(No drift) 6b. Right Leg: Motor (5-second hold - always test supine) - 0(No drift) 7. Limb Ataxia (finger/nose \T\ heel/low - test with eyes open) - 0(Absent) 8. Sensory Loss (pinprick arms/legs/face) - 0(Normal) 9. Best Language: Aphasia (description/naming/reading) - 0(No aphasia) 10. Dysarthria (speech clarity - read or repeat words) - 0(Normal) 11. Extinction and Inattention (visual/tactile/auditory/spatial/personal) - 0(No abnormality) Initials: jg9 Signatures: Dispatcher [employer] EDMS Sanjiv Cha FNP-C [employer] REVIEWER-Cla1 Diandra Pardo Victoria, RN RN vg1 Trena Matthews RN RN jg9 Valeria Shelton sd2 Corrections: (The following items were deleted from the chart) 10:04 10:04 Allergies: Aspirin; vg1 vg1 10:58 10:34 CT-STROKE BRAIN W/O CONTRAST+CT.RAD.BRZ ordered. EDMS EDMS 12:49 10:29 Oxygen Per Protocol ordered. sd2 jg9 15:05 14:35 Head Angio+CT.RAD.BRZ ordered. EDMS EDMS 15:06 14:33 Neck Angio+CT.RAD.BRZ ordered. EDMS EDMS 15:44 15:09 Stroke Protocol ordered. EDMS EDMS 16:26 14:17 Telemetry/MedSurg (Inpatient) sd2 eb 16:26 14:17 sd2 eb 17:03 16:26 [facility] ER HOLD eb eb 17:03 16:26 ERHOLD- eb eb
--- NOTE | 2022-03-10 14:17 | ER ---
Nurse's Notes [facility] [place] Name: Oleg Giles Age: 76 yrs Sex: Male : 1945 Arrival Date: 03/10/2022 Time: 09:55 Bed 15 Private MD: Willy Deshpande R Diagnosis: Dizziness and giddiness;Acute Vertigo;Ataxia Presentation: 03/10 09:58 Chief complaint: Patient states: " I went to see Dr Oliveira for blood work and vg1 later on that night I started feeling sick" Stated unsteady balance, dizziness and blurred vision and nausea. Denies headache or chest pain. Coronavirus screen: Vaccine status: Patient reports receiving the 2nd dose of the covid vaccine. Client denies travel out of the [place] in the last 14 days. Ebola Screen: Patient denies exposure to infectious person. Patient denies travel to an Ebola-affected area in the 21 days before illness onset. No acute neurological deficit is noted. Initial Sepsis Screen: Does the patient meet any 2 criteria? No. Patient's initial sepsis screen is negative. Does the patient have a suspected source of infection? No. Patient's initial sepsis screen is negative. Risk Assessment: Do you want to hurt yourself or someone else? Patient reports no desire to harm self or others. Onset of symptoms was March 08, 2022. 09:58 Method Of Arrival: Wheelchair vg1 09:58 Acuity: ALEXANDREA 3 vg1 10:48 Pre-hospital glucose is not applicable to this patient. jg9 Triage Assessment: 10:00 The onset of the patients symptoms was at an unknown time. jg9 10:04 The onset of the patients symptoms was more than six hours ago. General: Appears in no vg1 apparent distress. uncomfortable, Behavior is calm, cooperative. Pain: Denies pain. Neuro: Level of Consciousness is awake, alert, obeys commands, Oriented to person, place, time, situation, Logistics Team Lead are Moves all extremities. Gait is pt reports unsteady gate. Speech is normal, Facial symmetry appears normal, Reports blurred vision dizziness, Denies headache. Cardiovascular: Patient's skin is warm and dry. Respiratory: Airway is patent Respiratory effort is even, unlabored. 10:30 The onset of the patients symptoms was more than six hours ago. jg9 Stroke Activation: Symptom onset > 6 hours Physician: Stroke Attending; Name: ; Notified At: ; Arrived At: Physician: Chief Stroke Resident; Name: ; Notified At: ; Arrived At: Physician: Stroke Resident; Name: ; Notified At: ; Arrived At: Physician: ED Attending; Name: ; Notified At: ; Arrived At: Physician: ED Resident; Name: ; Notified At: ; Arrived At: Historical: - Allergies: 10:04 No Known Allergies; vg1 - PMHx: 10:04 Atrial fibrillation; Congestive heart failure; Heart Murmur; Hypercholesterolemia; vg1 Hypertensive disorder; Pneumonia; - PSHx: 10:04 cataract repair; vg1 - Immunization history:: Client reports receiving the 2nd dose of the Covid vaccine. - Social history:: Smoking status: Patient denies any tobacco usage or history of. Screenin:44 Abuse screen: Denies threats or abuse. Denies injuries from another. Nutritional jg9 screening: No deficits noted. Tuberculosis screening: No symptoms or risk factors identified. Fall Risk None identified. Gait- Impaired (20 pts.). Assessment: 10:45 VAN Scoring: Arm Drift: Patients demonstrates NO arm weakness. Patient is VAN Negative. jg9 Visual Disturbance:. Patient has been NPO before screening. The patient is alert, and able to follow commands. The patient does not exhibit slurred or garbled speech. The patient is not exhibiting difficulty speaking. The patient does not exhibit difficulty understanding words. The patient is able to swallow own secretions with no drooling or need for suction. Patient tolerated one teaspoon of water. No drooling, immediate coughing, gurgling, or clearing of the throat was noted. The patient tolerated 90mL of water. No drooling, immediate coughing, gurgling, or clearing of the throat was noted. The patient passed the bedside swallow screening. Oral medications may be given as ordered. Contact Physician for further diet orders. Provider notified of bedside swallow screening results: Valeria Shelton. 11:30 Reassessment: No changes from previously documented assessment. Patient and/or family jg9 updated on plan of care and expected duration. Pain level reassessed. Patient is alert, oriented x 3, equal unlabored respirations, skin warm/dry/pink. Patient states symptoms have not improved. 12:30 Reassessment: No changes from previously documented assessment. Patient and/or family jg9 updated on plan of care and expected duration. Pain level reassessed. Patient is alert, oriented x 3, equal unlabored respirations, skin warm/dry/pink. 13:17 Reassessment: Patient reports some improvement in dizziness. jg9 13:45 Reassessment: No changes from previously documented assessment. Patient is alert, jg9 oriented x 3, equal unlabored respirations, skin warm/dry/pink. provider notified of reports of vertigo when attempting to ambulate the patient Patient states symptoms have not improved. 17:29 TNKase (Tenecteplase) Screening: Contraindications: Patient reports onset of signs and jl7 symptoms of stroke greater than 6 hours ago: Yes. Vital Signs: 09:58 BP 161 / 63; Pulse 60; Resp 16; Temp 98.2; Pulse Ox 100% on R/A; Weight 83.91 kg; vg1 Height 5 ft. 6 in. (167.64 cm); Pain 0/10; 11:20 BP 165 / 69; Pulse 52; Resp 16; Pulse Ox 100% ; jg9 12:30 BP 167 / 60; Pulse 52; Resp 18 S; Pulse Ox 100% on R/A; jg9 13:30 BP 177 / 60; Pulse 49; Resp 15 S; Pulse Ox 100% ; jg9 09:58 Body Mass Index 29.86 (83.91 kg, 167.64 cm) vg1 NIH Stroke Scale Scores: 10:45 NIHSS Score: 0 jg9 ED Course: 09:55 Patient arrived in ED. mr 09:55 Willy Deshpande MD is Private Physician. mr 10:04 Triage completed. vg1 10:04 Arm band placed on. vg1 10:12 Valeria Shelton is Attending Physician. sd2 10:14 Trena Matthews, DI is Primary Nurse. jg9 10:30 Patient has correct armband on for positive identification. Bed in low position. Call jg9 light in reach. Side rails up X 1. 10:35 Inserted saline lock: 20 gauge in left antecubital area, using aseptic technique. Blood jg9 collected. 10:48 Stroke CXR 1 View In Process Unspecified. EDMS 10:58 Head Brain Wo Cont In Process Unspecified. EDMS 14:15 Valeria Shelton is Hospitalizing Provider. sd2 14:15 Kojo Calhoun MD is Hospitalizing Provider. sd2 16:04 Patient moved to MRI. jg9 17:27 No provider procedures requiring assistance completed. Patient admitted, IV remains in jl7 place. intact, No redness/swelling at site. Administered Medications: 11:02 Drug: Meclizine 25 mg Route: PO; jg9 12:48 Follow up: Response: No adverse reaction; No change in condition jg9 12:58 Drug: Valium (diazepam) 5 mg Route: PO; jg9 13:45 Follow up: Response: No adverse reaction; No change in condition jg9 Medication: 17:29 VIS not applicable for this client. jl7 Point of Care Testing: Blood Glucose: 10:04 Blood Glucose: 146 mg/dL; vg1 Ranges: Outcome: 14:17 Decision to Hospitalize by Provider. sd2 17:27 Admitted to Tele accompanied by tech, room 206, with chart, Report called to DI Villalobos jl7 17:27 Condition: stable 17:27 Discharge instructions given to patient, Instructed on the need for admit, Demonstrated understanding of instructions. 17:45 Patient left the ED. jg9 NIH Stroke Scale - NIH Stroke Score Date: 03/10/2022 Time: 10:45 Total Score = 0 1a. Level of Consciousness (LOC) - 0(Alert) 1b. Level of Consciousness (LOC) (Month \\T\\ Age) - 0(Both) 1c. LOC Commands (Open \\T\\ Closes Eyes/Bioinformatics Analyst) - 0(Both) 2. Best Gaze (Lateral Gaze Paresis) - 0(Normal) 3. Visual Field Loss - 0(No visual loss) 4. Facial Palsy - 0(Normal) 5a. Left Arm: Motor (10-second hold) - 0(No drift) 5b. Right Arm: Motor (10-second hold) - 0(No drift) 6a. Left Leg: Motor (5-second hold - always test supine) - 0(No drift) 6b. Right Leg: Motor (5-second hold - always test supine) - 0(No drift) 7. Limb Ataxia (finger/nose \\T\\ heel/low - test with eyes open) - 0(Absent) 8. Sensory Loss (pinprick arms/legs/face) - 0(Normal) 9. Best Language: Aphasia (description/naming/reading) - 0(No aphasia) 10. Dysarthria (speech clarity - read or repeat words) - 0(Normal) 11. Extinction and Inattention (visual/tactile/auditory/spatial/personal) - 0(No abnormality) Initials: jg9 Signatures: Dispatcher [employer] [facility] Lyric PastorJet, RN RN jl7 Kellie Alcazar RN RN vg1 Trena Matthews, RN RN jg9 Cat, Valeria sd2 Corrections: (The following items were deleted from the chart) 10:04 10:04 Allergies: Aspirin; vg1 vg1 10:45 10:44 Fall Risk None identified. jg9 jg9 10:47 10:45 Patient has been NPO before screening. The patient is alert, and able to j9 follow commands. The patient does not exhibit slurred or garbled speech. The patient does not exhibit difficulty understanding words. The patient is able to swallow own secretions with no drooling or need for suction. Patient tolerated one teaspoon of water. No drooling, immediate coughing, gurgling, or clearing of the throat was noted. The patient tolerated 90mL of water. No drooling, immediate coughing, gurgling, or clearing of the throat was noted. The patient passed the bedside swallow screening. Oral medications may be given as ordered. Contact Physician for further diet orders. Provider notified of bedside swallow screening results: Valeria Shelton jg9 10:47 10:47 The patient is not exhibiting difficulty speaking. jg9 jg9
[2022-03-10 14:21] LABS: SARS-CoV-2 Antigen Rapid Res Negative (Negative)
--- NOTE | 2022-03-10 15:56 | P.HP ---
Certification for Inpatient Patient admitted to: Observation With expected LOS: <2 Midnights Patient will require the following post-hospital care: None Practitioner: I am a practitioner with admitting privileges, knowledge of patient current condition, hospital course, and medical plan of care. Services: Services provided to patient in accordance with Admission requirements found in Title 42 Section 412.3 of the Code of Federal Regulations Patient History Date of Service: 03/10/22 Primary Care Provider: Dr. Deshpande Reason for admission: Dizziness/Vertigo History of Present Illness: Mr. Oleg Giles is a pleasant 76-year-old male who has a past medical history of prior cerebrovascular accident (2016), atrial fibrillation on warfarin, s/p porcine valve replacement (unknown valve), and hypertension who presents to the [facility] Emergency Department for dizziness. He reports that, since the evening of 03/08/2022, he has been experiencing significant dizziness. He describes this feeling as a sensation of the room spinning with associated nausea. He states that his symptoms are worse with s tanding and attempting ambulation. He denies any alleviating factors. He has not tried taking any medications for symptoms. He states that the symptoms are similar to the presenting complaints of his prior cerebrovascular accident. On review of systems, he denies any fevers, chills, headaches, syncope, weakness, chest pain, palpitations, shortness of breath, wheezing, cough, abdominal pain, vomiting, diarrhea, constipation, hematochezia, melena, dysuria, hematuria, myalgia, or any other symptoms. He presented to the Emergency Department for further evaluation. Upon presentation, his vital signs were stable. His laboratory studies were notable for a hemoglobin of 9.9 (near baseline) and an INR of 1.97. EKG revealed sinus rhythm with a left bundle branch block (also noted on EKG from June 2021). Chest x-ray revealed, "no acute cardiopulmonary disease." CT head revealed, "no acute intracranial abnormality." In the Emergency Department, he w as given diazepam, meclizine, and aspirin. He was admitted to the General Internal Medicine service for further evaluation. HOME MEDICATIONS: I am unable to addend the current listed medication regimen in [email or web address]. Below is a list of the medications he is takin. Aspirin 81 mg daily 2. Warfarin 5 mg daily 3. Losartan 25 mg daily 4. Amiodarone 200 mg daily 5. Atorvastatin 20 mg nightly Allergies No Known Allergies Allergy (Verified 07/09/21 05:35) Home medications list reviewed: Yes Home Medications: Apixaban [Eliquis] 5 mg PO BID 06/26/21 Atorvastatin Calcium 20 mg PO DAILY 06/26/21 Docusate [Colace Cap*] 100 mg PO DAILY #30 cap 06/27/21 Ferrous Sulfate 325 mg PO BID #60 06/27/21 Benzonatate 100 mg PO QID 07/09/21 Omeprazole [Prilosec] 20 mg PO DAILY 07/09/21 Trazodone HCl 50 mg PO BEDTIME #15 tablet 07/10/21 Amiodarone HCl [Cordarone*] 400 mg PO BID #60 tab 07/28/21 Ensure Enlive 237 ml PO BID #60 can 07/28/21 Furosemide [Lasix*] 40 mg PO DAILY #30 tab 07/28/21 - Past Medical/Surgical History Diabetic: No -: Atrial fibrillation on chronic anticoagulation therapy -: Hypertension -: History of CVA -: Hyperlipidemia -: Anemia of chronic disease with iron deficiency -: GERD -: Diastolic CHF -: History of Covid infection, vaccinated -: Incision and drainage right thigh -: cataract sx carol Psychosocial/ Personal History: Patient lives at home. He is - Family History Father -: Diabetes, Stroke - Social History Smoking Status: Never smoker Alcohol use: No CD- Drugs: No Caffeine use: Yes Review of Systems General: Unremarkable Eyes: Unremarkable ENT: Unremarkable Respiratory: Unremarkable Cardiovascular: Unremarkable Gastrointestinal: Unremarkable Genitourinary: Unremarkable Musculoskeletal: Unremarkable Neurological: Other (dizziness, vertigo) Physical Examination - Vital Signs Temperature: 98.2 F Blood Pressure: 161/63 Pulse: 60 Respirations: 16 Pulse Ox (%): 99 - Physical Exam General: Alert, In no apparent distress, Oriented x3 HEENT: Atraumatic, PERRLA, Mucous membr. moist/pink, EOMI, Sclerae nonicteric Neck: Supple, 2+ carotid pulse no bruit, JVD not distended Respiratory: Clear to auscultation bilaterally, Normal air movement Cardiovascular: No edema, Regular rate/rhythm, Normal S1 S2, No gallops, No rubs, No murmurs Gastrointestinal: Normal bowel sounds, Soft and benign, Non-distended, No tenderness, No rebound, No guarding Musculoskeletal: No clubbing Integumentary: No rashes Neurological: Normal gait, Normal speech, Normal strength at 5/5 x4 extr, Normal tone, Sensation intact, Cranial nerves 3-12 intact, Normal reflexes 2+, Normal affect - Studies Laboratory Data (last 24 hrs) 03/10/22 10:40: PT 22.0 H, INR 1.97, APTT 43.7 H 03/10/22 10:40: WBC 5.9, Hgb 9.9 L, Hct 30.4 L, Plt Count 398 03/10/22 10:40: Sodium 140, Potassium 4.0, BUN 17, Creatinine 1.06, Glucose 117 H Assessment and Plan - Plan NIH Stroke Scale 1a. Level of consciousness: 0 - Alert; keenly responsive 1b. LOC questions: 0 - Both questions right 1c. LOC commands: 0 - Performs both tasks 2. Best Gaze: 0 - Normal 3. Visual: 0 - No visual loss 4. Facial Palsy: 0 - Normal symmetry 5a. Motor left arm: 0 - No drift for 10 seconds 5b. Motor right arm: 0 - No drift for 10 seconds 6a. Motor left le - No drift for 5 seconds 6b. Motor right le - No drift for 5 seconds 7. Limb ataxia: 0 - No ataxia 8. Sensory: 0 - Normal; no sensory loss 9. Best Language: 0 - Normal; no aphasia 10. Dysarthria: 0 - Normal 11. Extinction and Inattention: 0 - No abnormality 12. Distal motor function: 0 - No abnormality Total Score: 0 # Acute-Onset Dizziness/Vertigo # History of Cerebrovascular Accident without Residual Deficits # Hypertension Although his symptoms appear to be consistent with peripheral vertigo, cannot exclude a CVA. - Consulted Neurology - recommendations appreciated - Admit under observation status - No neurologic deficits on my exam - NIHSS = 0 - Allow permissive hypertension for tonight - Hold home losartan - q4hr neurochecks - Ordered MR brain + MRA head/neck - Ordered TTE - PT/OT evaluation requested - Ordered risk profile: Hgb A1c, lipid panel, TSH - Continue home aspirin + atorvastatin (increased from 20 mg to 40 mg) # Paroxysmal Atrial Fibrillation # S/P Porcine Valve Replacement (Unknown Valve) # Left Bundle Branch Block His [id number] = 4 (HTN=1, Age>75=2, CVA=1) - EKG currently in sinus rhythm - Continue home amiodarone, warfarin Discharge Plan: Home Plan to discharge in: 24 Hours - Advance Directives Does patient have a Living Will: Yes Does patient have a Durable POA for Healthcare: No - Code Status/Comfort Care Code Status Assessed: Yes Code Status: Full Code
[2022-03-10] MEDS ORDERED: WARFARIN SODIUM 5 MG TAB PO SCH (17:00)
--- NOTE | 2022-03-10 17:08 | RAD REPORT ---
EXAM DESCRIPTION: MRI - Brain W/Wo Cont - 03/10/2022 4:58 pm CLINICAL HISTORY: STROKE SUSPECTED COMPARISON: MRA Head Wo Cont dated 03/10/2022; Brain Wo Cont dated 03/30/2019; Brain Wo Cont dated ; MRA HEAD W O CONTRAST dated 11/20/2010 TECHNIQUE: Sagittal T1-weighted images were obtained along with PD/heavily T2-weighted and T2-FLAIR images. Axial DWI and ADC mapping sequences were also obtained along with coronal heavily T2-weighted images were obtained. Post contrast enhanced images were obtained. FINDINGS: No intracranial hemorrhage, mass or acute infarction. No edema or shift of midline structu res. No extra-axial fluid collections. Signal voids are seen as a normal finding in the major intracr anial vessels. No significant white matter disease. A few scattered punctate T2/FLAIR hyperintense si gnal foci present within the centrum semiovale and goodrich radiata. These are unchanged. No mastoid effusion.Paranasal sinuses are clear. IMPRESSION: No acute intracranial abnormality. No abnormal enhancement.
--- NOTE | 2022-03-10 17:09 | RAD REPORT ---
EXAM DESCRIPTION: MRI - MRA Head Wo Cont - 03/10/2022 4:58 pm CLINICAL HISTORY: STROKE SUSPECTED CVA COMPARISON: Brain Wo Cont dated 03/30/2019; Brain Wo Cont dated 06/04/2017; MRA HEAD W O CONTRAST vimal ed 11/20/2010; MR STROKE PROTOCOL dated 08/08/2010 FINDINGS: 3D noncontrast [id number] MR angiography of the upper [place] of [place] was performed. No aneurysm, flow-limiting stenosis or vascular malformation is seen. Forward flow seen in codominant vertebral arteries. The visualized dural venous sinuses appear patent. IMPRESSION: No significant flow abnormality of the upper [place] of [place] is identified.
--- NOTE | 2022-03-10 17:13 | RAD REPORT ---
EXAM DESCRIPTION: MRI - MRA Neck W/Wo Cont - 03/10/2022 4:58 pm CLINICAL HISTORY: STROKE SUSPECTED COMPARISON: Carotid Artery Bilateral dated 06/04/2017 FINDINGS: Contrast enhance 2D [id number] MR angiography of the neck vessels was performed. Moderate (50-70%) stenosis at the right proximal ICA. The left ICA is widely patent. The vertebral ar teries are codominant and widely patent. IMPRESSION: Moderate right proximal ICA stenosis. No other flow limiting stenosis is identified.
[2022-03-10 17:51] VITALS: O2SAT 100
[2022-03-10] MEDS ORDERED: ATORVASTATIN 40 MG TAB PO SCH (21:00)
[2022-03-10 21:10] VITALS: BMI 29.8
[2022-03-11 06:42] LABS: Protime INR 2.01
[2022-03-11 06:44] LABS: Absolute Lymphocytes (CBC) 1.7 K/uL (0.7-4.9); Hematocrit 30.1 % (39.6-49.0); Lymphocytes % 26.1 % (15.3-44.8); MCV 80.2 fL (80-100); MPV 7.3 fL (7.6-11.3); RBC Red Blood Cell Count 3.76 M/uL (4.33-5.43)
[2022-03-11 07:06] LABS: Bilirubin Total 0.3 mg/dL (0.2-1.0); Magnesium 2.4 mg/dL (1.8-2.4); Phosphorus 3.4 mg/dL (2.5-4.9); Potassium 3.9 mmol/L (3.5-5.1); Protein, Total 6.4 g/dL (6.4-8.2); Thyroid Stimulating Hormone 1.43 uIU/mL (0.360-3.740)
[2022-03-11 07:57] VITALS: BP 131/63; TEMP 97.6
[2022-03-11] MEDS ORDERED: AMIODARONE HCL 200 MG TAB PO SCH (09:00)
[2022-03-11] MEDS ORDERED: ASPIRIN 81 MG CHEWABLE TABLET PO SCH (09:00)
--- NOTE | 2022-03-11 10:00 | P.DS ---
Admission Date: 03/10/22 Discharge Date: 03/11/22 Primary Care Provider: Dr. Deshpande Disposition: ROUTINE DISCHARGE Discharge Condition: GOOD Reason for Admission: Dizziness/Vertigo Hospital Course: DIAGNOSES: # Acute-Onset Dizziness/Vertigo - Suspected Benign Paroxysmal Positional Vertigo # History of Cerebrovascular Accident without Residual Deficits # Moderate Right Proximal Internal Carotid Artery Stenosis # Hypertension # Paroxysmal Atrial Fibrillation # S/P Porcine Valve Replacement (Unknown Valve) # Left Bundle Branch Block HOSPITAL COURSE: Mr. Oleg Giles is a pleasant 76-year-old male with a past medical history significant for prior cerebrovascular accident without residual deficits, paroxysmal atrial fibrillation, hypertension, and prior porcine valve replacement (unknown valve) who was admitted to the [facility] on 03/10/2022 for dizziness/vertigo. Upon further evaluation, his vital signs were stable. His laboratory studies were notable for a hemoglobin of 9.9 (near baseline) and an INR of 1.97. EKG revealed sinus rhythm with a left bundle branch block (also noted on EKG from June 2021). Chest x-ray revealed, "no acute cardiopulmonary disease." CT head revealed, "no acute intracranial abnormality." Based on physical examination, it appeared that his symptoms are most consistent with benign positional paroxysmal vertigo; however, he was admitted for a complete CVA evaluation given that a posterior circulation cerebrovascular accident can present with similar symptoms. MRI brain revealed, "no acute intracranial abnormality. No abnormal enhancement." MR brain angiogram revealed, "no significant flow abnormality of the [place] of [place] is identified." MR neck angiogram revealed, "moderate right proximal ICA stenosis. No other flow limiting stenosis is identified." Ideally, we would have like to obtain a transthoracic echocardiogram to complete his stroke evaluation; however, this was unavailable on the weekend. He stated that he was not very concerned and would prefer to be discharged home without a complete evaluation. He states that he follows closely with Dr. Westbrook (cardiology) and has an appointment with him on 03/15/2022. He states that he has had many echocardiograms in the past and does not wish to stay overnight to receive an echocardiogram in the morning. I discussed this with Dr. Westbrook and he was okay with him being discharged. I provided him information on how to perform the Nava maneuver at home as well as a prescription for meclizine. On 03/11/2022, he was seen on morning rounds and deemed medically stable for discharge. He was discharged with instructions to schedule follow-up appointments with his PCP (Dr. Deshpande) in 3-5 days and with cardiology (Dr. Westbrook) in 5-7 days. He was provided a prescription for meclizine. He and his daughter were given the opportunity to ask questions and reported no further questions. Furthermore, all questions were answered to the best of my ability. Today, I personally spent 20 minutes with him, of which greater than 50% of the time was spent in patient education, counseling, and coordination of care as described above. - Physical Exam General: Alert, In no apparent distress, Oriented x3 HEENT: Atraumatic, PERRLA, Mucous membr. moist/pink, EOMI, Sclerae nonicteric Neck: Supple, 2+ carotid pulse no bruit, JVD not distended Respiratory: Clear to auscultation bilaterally, Normal air movement Cardiovascular: No edema, Regular rate/rhythm, Normal S1 S2, No gallops, No rubs, No murmurs Gastrointestinal: Normal bowel sounds, Soft and benign, Non-distended, No tenderness, No rebound, No guarding Musculoskeletal: No clubbing Integumentary: No rashes Neurological: Normal gait, Normal speech, Normal strength at 5/5 x4 extr, Normal tone, Sensation intact, Cranial nerves 3-12 intact, Normal reflexes 2+, Normal affect NIH Stroke Scale 1a. Level of consciousness: 0 - Alert; keenly responsive 1b. LOC questions: 0 - Both questions right 1c. LOC commands: 0 - Performs both tasks 2. Best Gaze: 0 - Normal 3. Visual: 0 - No visual loss 4. Facial Palsy: 0 - Normal symmetry 5a. Motor left arm: 0 - No drift for 10 seconds 5b. Motor right arm: 0 - No drift for 10 seconds 6a. Motor left le - No drift for 5 seconds 6b. Motor right le - No drift for 5 seconds 7. Limb ataxia: 0 - No ataxia 8. Sensory: 0 - Normal; no sensory loss 9. Best Language: 0 - Normal; no aphasia 10. Dysarthria: 0 - Normal 11. Extinction and Inattention: 0 - No abnormality 12. Distal motor function: 0 - No abnormality Total Score: 0 Vital Signs/Physical Exam: Temp Pulse Resp BP Pulse Ox 97.6 F 50 16 131/63 99 03/11/22 07:56 03/11/22 07:56 03/11/22 07:56 03/11/22 07:56 03/11/22 07:56 Laboratory Data at Discharge: WBC 6.4 K/uL (4.3-10.9) 03/11/22 05:58 Hgb 10.0 g/dL (13.6-17.9) L 03/11/22 05:58 Hct 30.1 % (39.6-49.0) L 03/11/22 05:58 Plt Count 364 K/uL (152-406) 03/11/22 05:58 PT 22.4 SECONDS (9.5-12.5) H 03/11/22 05:58 INR 2.01 03/11/22 05:58 APTT 43.7 SECONDS (24.3-36.9) H 03/10/22 10:40 Sodium 139 mmol/L (136-145) 03/11/22 05:58 Potassium 3.9 mmol/L (3.5-5.1) 03/11/22 05:58 BUN 15 mg/dL (7-18) 03/11/22 05:58 Creatinine 0.93 mg/dL (0.55-1.3) 03/11/22 05:58 Glucose 88 mg/dL (74-106) 03/11/22 05:58 Phosphorus 3.4 mg/dL (2.5-4.9) 03/11/22 05:58 Magnesium 2.4 mg/dL (1.8-2.4) 03/11/22 05:58 Total Bilirubin 0.3 mg/dL (0.2-1.0) 03/11/22 05:58 AST 14 U/L (15-37) L 03/11/22 05:58 ALT 33 U/L (12-78) 03/11/22 05:58 Alkaline Phosphatase 83 U/L (45-117) 03/11/22 05:58 Triglycerides 71 mg/dL (<150) 03/11/22 05:58 Cholesterol 118 mg/dL (<200) 03/11/22 05:58 HDL Cholesterol 55 mg/dL (40-60) 03/11/22 05:58 Cholesterol/HDL Ratio 2.15 03/11/22 05:58 Home Medications: Atorvastatin Calcium 20 mg PO DAILY 06/26/21 Amiodarone HCl [Cordarone*] 400 mg PO DAILY 03/10/22 Aspirin 81 mg PO DAILY 03/10/22 Losartan Potassium [Cozaar] 25 mg PO DAILY 03/10/22 Warfarin Sodium [Coumadin*] 5 mg PO BEDTIME 03/10/22 Meclizine HCl 12.5 mg PO DAILYPRN PRN #10 tablet 03/11/22 New Medications: Meclizine HCl 12.5 mg PO DAILYPRN PRN #10 tablet PRN Reason: Dizziness Physician Discharge Instructions: 1. Please schedule follow-up appointment with your PCP (Dr. Deshpande) in 3-5 days 2. Please keep your Cardiology appointment with Dr. Westbrook on 03/15/2022 Diet: AHA Activity: Fall precautions Followup: Jimmy Westbrook MD [ACTIVE - CAN ADMIT] - (Call to schedule appointment.) Willy Deshpande MD [Primary Care Provider] - (Call to schedule appointment.)
--- NOTE | 2022-03-12 09:31 | EKG ---
Test Date: 2022-03-10 Test Time: 10:18:09 [employer]: CATHERINE MEASUREMENT RESULTS: Intervals: Rate: 56 MS: 200 QRSD: 154 QT: 528 QTc: 509 [place]: P: 39 MS: 200 QRS: 19 T: 78 INTERPRETIVE STATEMENTS: Sinus bradycardia with occasional premature ventricular complexes Left bundle branch block Abnormal ECG Compared to ECG 08/23/2021 10:58:47 Ventricular premature complex(es) now present Atrial fibrillation no longer present Electronically Signed On 03-12-22 09:25:13 CDT by Jimmy Westbrook
== END 2022-03-11 11:18 | disposition home or self-care (01) ==
LOC: ER 09:53 → ERHOLD 15:50 → 2ND 17:24
PROVIDERS: ADMIT Internal Medicine; ATTEND Internal Medicine
DX: R42 Dizziness and giddiness (principal); I65.21 Occlusion and stenosis of right carotid artery; I48.0 Paroxysmal atrial fibrillation; R27.0 Ataxia, unspecified; I44.7 Left bundle-branch block, unspecified; I11.0 Hypertensive heart disease with heart failure; I50.30 Unspecified diastolic (congestive) heart failure; D63.8 Anemia in other chronic diseases classified elsewhere; D50.9 Iron deficiency anemia, unspecified; E78.5 Hyperlipidemia, unspecified; K21.9 Gastro-esophageal reflux disease without esophagitis; E78.00 Pure hypercholesterolemia, unspecified; Z95.2 Presence of prosthetic heart valve; Z86.73 Personal history of transient ischemic attack (TIA), and cerebral infarction without residual deficits; Z86.16 Personal history of COVID-19; Z20.822 Contact with and (suspected) exposure to COVID-19; Z79.01 Long term (current) use of anticoagulants; Z79.82 Long term (current) use of aspirin; Z79.899 Other long term (current) drug therapy; Z83.3 Family history of diabetes mellitus; Z82.3 Family history of stroke
CPT/HCPCS: 93005; 85025 ×2; 80048; 36415; 83735; 84100; 85610 ×2; 80061; 82947; 85730; 84443; 83036; 80053; 70450; 71045; 70553; 70544; 70549; 99285; 87811; A9577; J8597; G0378 ×3; 81003; 81015

== ENCOUNTER 2022-05-14 11:54 | Emergency (ER) | payer OTHER ==
--- OUTSIDE RECORDS SUMMARY | 2022-05-14 12:13 | XMS REPORT | Continuity of Care Document ---
:1945 Author Organization [facility] t Address [address] [place] [address] Care Team Providers Name Role Phone Melida SHEFFIELD, Willy Quinn Primary Care Physician [phone] ALBA BELTRAN NATASHA Attending Clinician Unavailable [id number] Attending Clinician Unavailable RYLAN JARAMILLO Attending Clinician Unavailable Jackelyn Hernandez Attending Clinician Unavailable Elle SEVILLA, Melisa Attending Clinician KARON CHRISTIAN Attending Clinician Unavailable Mack JUAREZ, Gabino Whitaker Attending Clinician GABINO PARK Attending Clinician Unavailable GABINO ARNOLD Attending Clinician Unavailable Amilcar SHEFFIELD, Patricia Jim Attending Clinician [phone] Michael Cristina MD Attending Clinician Floyd SHEFFIELD, Edith Gamboa Attending Clinician Jing SHEFFIELD, Jerrell Dave Attending Clinician Alberto SHEFFIELD, Raz Rodriguez Attending Clinician Bartolo Saldivar MD Attending Clinician Juan Carlos SHEFFIELD, Gabino Attending Clinician Darrel Hidalgo MD Attending Clinician Ramya SHEFFIELD, Colby Fox Attending Clinician [phone] ELLIS CAMARILLO Attending Clinician Unavailable Maria Teresa SHEFFIELD, Meliza Singh Attending Clinician [phone] Yessica SHEFFIELD, Timmy Miranda Attending Clinician Larry Holbrook CRNA Attending Clinician PATRICIA DOWNING Attending Clinician Unavailable HASEEBDARLENE Krishna Attending Clinician Unavailable Doris SHEFFIELD, [place] Nicholas Attending Clinician Haseeb SHEFFIELD, Darlene Attending Clinician Yonas SHEFFIELD, Bernarda Estevez Attending Clinician TACOS JONES Attending Clinician Unavailable RICK SANCHEZ Attending Clinician Unavailable NOA RAMIREZ Attending Clinician Unavailable Oneil Gottlieb MD Attending Clinician Noa Ramirez MD Attending Clinician [phone] ONEIL GOTTLIEB Attending Clinician Unavailable Jacobo Steward MD Ginger Attending Clinician [phone] JACOBO STEWARD GINGER Attending Clinician Unavailable Veronique SHEFFIELD, Bar Attending Clinician Raegan Rico MD Attending Clinician Dillon Tenorio MD Attending Clinician Joyce Boss CRNA Attending Clinician [phone] Robinson SHEFFIELD, Jimmy Ramirez Attending Clinician [phone] Katy Nath MD Attending Clinician Jaden Chan CRNA Attending Clinician Doctor Unassigned, [place] Attending Clinician Unavailable ALBA BELTRAN NATASHA Admitting Clinician Unavailable [id number] Admitting Clinician Unavailable RYLAN JARAMILLO Admitting Clinician Unavailable EDITH BARRIENTOS Admitting Clinician Unavailable BERNARDA BIRD Admitting Clinician Unavailable NOA RAMIREZ Admitting Clinician Unavailable BAR TOLEDO Admitting Clinician Unavailable SARAH SCHAFFER Admitting Clinician Unavailable Katy Nath MD Admitting Clinician Payers Payer Name Policy Type Policy Number Effective Date Expiration Date S sue FLORES HUMM [id number] [facility] [id number] [facility] [id number] 2021 2021 HEALTHCARE 00:00:00 00:00:00 TOTALCARE SNP [id number] 2020 MEDICARE HMO-CIGNA 00:00:00 CIGNA [facility] [id number] 2020 O 00:00:00 Problems Condition Condition Condition Status Onset Resolution Last Treating Co mments Source Name Details Category Date Date Treatment Clinician Date Paroxysmal Paroxysmal Disease Active [facility] atrial atrial 1[facility]18 [facility] fibrillati fibrillati 00:00: Me dical on on 00 [facility] Severe Severe Disease Active [facility] mitral mitral 1-18 [facility] regurgitat regurgitat 00:00: Me dical ion ion 00 [facility] 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 1-18 [facility] athy athy 00:00: Medical 00 [facility] Dehydratio Dehydratio Disease Active [facility] n n 1-13 [facility] 00:[facility]: Medical 00 [facility] Nausea and Nausea and Disease Active [facility] vomiting vomiting 1-13 [facility] 00:[facility]: Medical 00 [facility] Esophageal Esophageal Disease Active 2020-[address] dysphagia dysphagia 1-15 [facility] 00:00: Medical 00 [facility] Weakness Weakness Disease [facility] 00 [facility] GI bleed GI bleed Disease [facility] 00 [facility] s/p s/p Disease Active [facility] Robotic Robotic 9-10 [facility] MVR/LAAL/M MVR/LAAL/M 00:00: Me lora TOM by Dr. TOM by Dr. Marko Bui (09/07/21) (09/07/21) Cardiogeni Cardiogeni Disease Active [facility] c shock c shock [facility] Hypovolemi Hypovolemi Disease Active [facility] c shock c shock [facility] Acute Acute Disease Active [facility] pulmonary pulmonary [facility] edema edema Medical [facility] Hypervolem Hypervolem Disease Active [facility] ia, ia, [facility] unspecifie unspecifie Me dical d d Center hypervolem hypervolem ia type ia type No known No known Disease Unive rs active active ity of problems problems [facility] Branch Allergies, Adverse Reactions, Alerts Allergy Allergy Status Severity Reaction(s) Onset Inactive Treating Comm ents Source Name Type Date Date Clinician Aspirin Propensi Active 2020-08 [facility] ty to 08-22 College adverse 00:00: of reaction 00 Medicin s to e drug APIXABAN Allergy Active 2020-[address] [facility] ASPIRIN Allergy Active [facility] NO KNOWN Allergy Active [facility] Family History Family Member Diagnosis Comments Start Date Stop Date Source Natural father Diabetes [facility] Natural father Heart disease [facility] Natural sister Diabetes [facility] Social History Social Habit Start Date Stop Date Quantity Comments Source History SDOH [facility] Alcohol Frequency [facility] History SDOH [facility] Alcohol Std Drinks Medica Center History SDOH [facility] Alcohol Binge Medical [facility] Alcohol intake 2021-10-04 2021-10-04 Ex-drinker [facility] 00:[facility]00 00:00:00 (finding) Medical Center Tobacco use and 2021-05-03 2021-05-[address] [facility] exposure 00:00:00 00:00:00 Medical Center History SDOH 2021-05-03 2021-05-03 quit [address] [facility] Alcohol Comment 00:00:00 00:00:00 ago Medical enter Tobacco Comment 2021-05-03 2021-05-03 quit [address] [facility] 00:00:00 00:00:00 ago Medical Center Sex Assigned At [address] [facility] 00:00[facility]00 00:00:00 Medical Center Smoking Status Start Date Stop Date Source Never smoked tobacco [facility] Medicine Former smoker 2021-05-03 00:00:00 2021-05-03 00:00:00 [facility] Medications Ordered Filled Start Stop Current Ordering Indication Dosage Frequency Signature Comments Components Source Medication Medication Date Date Medication? Clinician (SIG) Name Name digoxin 2021- No 125ug Take 125 [facility] (LANOXIN) 10-12-24 mcg by [place] 125 MCG 10:03: 00:00 mouth of tablet 52 :00 daily. Medicin e furosemide 2021- No 40mg Take 40 mg [facility] (LASIX) 40 10-12- by mouth Mario ege MG tablet 10:03: 00:00 daily. of 52 :00 Medicin e losartan 2021- No 25mg Take 25 mg [facility] (COZAAR) 25 10-12- by mouth Col lege MG tablet 10:03: 00:00 daily. of 52 :00 Medicin e warfarin 2021- No 5mg Take 5 mg [facility] (COUMADIN) 10-12- by mouth Mario [facility] 5 MG tablet 10:03: 00:00 daily. of 52 :00 Medicin e atorvastati 2021- No 20mg Take 20 mg [facility] (LIPITOR) 10-12- by mouth. Co llege 20 MG 10:03: 00:00 of tablet 52 :00 Medicin e amiodarone 2021- No 200mg Take 200 [facility] (PACERONE) 10-12-24 mg by [place] 200 MG 10:03: 00:00 mouth of tablet 52 :00 daily. Medicin e metoprolol 2021- No 12.5mg Take 12.5 [facility] (LOPRESSOR) 10-12-24 mg by Javier e 25 MG 09:59: 00:00 mouth two of tablet 39 :00 times Medicin daily. e lorazepam Yes 1mg Take 1 mg [facility] (ATIVAN) 1 -24 by mouth Colle ge MG tablet 09:55: nightly as of 38 needed for Medicin Anxiety. e Pantoprazol 2022-0 Yes Take by [facility] e Sodium 40 2-24 mouth. Colleg e MG PACK 08:55: of 28 Medicin e senna-docus Yes 1{tbl} Take 1 [facility] ate 2-24 Tablet by [place] (PERICOLACE 08:55: mouth of ) 8.6-50 MG 28 daily. Medici n per tablet e Tamsulosin Yes Take by [facility] HCl 0.4 MG 2-24 mouth. College CAPS 08:55: of 28 Medicin e thiamine 0 Yes 100mg Take 100 [facility] 100 MG 2-24 mg by [place] tablet 08:55: mouth of 28 daily. Medicin e gabapentin Yes 100mg Take 100 [facility] (NEURONTIN) 2-24 mg by [place] 100 MG 08:54: mouth 3 of capsule 00 times Medicin daily. e Magnesium Yes Take by [facility] Oxide 400 2-24 mouth. [place] (241.3 Mg) 08:54: of MG TABS 00 Medicin e Aspirin 81 Yes 81mg Take 81 mg [facility] MG tablet 2-24 by mouth Colleg e 08:54: once. of 00 Medicin e ferrous Yes 325mg Take 325 [facility] sulfate 325 2-24 mg by [place] (65 Fe) MG 08:35: mouth 3 of tablet 07 times Medicin daily. e trazodone Yes 50mg Take 50 mg [facility] (DESYREL) 2-24 by mouth Colleg e 50 MG 08:35: nightly. of tablet 07 Medicin e amiodarone 0 Yes [id number] 200mg Take 1 [facility] (PACERONE) 2-24 09 Tablet by Mario e[facility] 200 MG 00:00: mouth of tablet 00 daily. Medicin e atorvastati Yes [id number] 20mg Take 1 [facility] n (LIPITOR) 2-24 Tablet by lege 20 MG 00:00: mouth of tablet 00 daily. Medicin e digoxin 0 Yes [id number] 125ug Take 1 [facility] (LANOXIN) 2-24 09 Tablet by Leonie [facility] 125 MCG 00:00: mouth of tablet 00 daily. Medicin e furosemide 0 Yes [id number] 40mg Take 1 [facility] (LASIX) 40 2-24 09 Tablet by Mario ege MG tablet 00:00: mouth of 00 daily. Medicin e losartan Yes [id number] 25mg Take 1 [facility] (COZAAR) 25 10-12 Tablet by Col lege MG tablet 00:00: mouth of 00 daily. Medicin e warfarin Yes [id number] 5mg Take 1 [facility] (COUMADIN) 10-12 Tablet by Mario ege 5 MG tablet 00:00: mouth of 00 daily. Medicin e metoprolol Yes [id number] Take 1/2 [facility] (TOPROL XL) 10-12 tablet Colleg e 25 MG XL 00:00: once a day of tablet 00 (12.5 mg) Medicin e thiamine 2021- No 100mg QD Take 1 [facility] 09-20 tablet [facility] tablet 00:00: 23:59 (100 mg Medical 00 :00 total) by Center mouth daily for 30 days. pantoprazol 2021- No 40mg QD Take [address] [facility] e 09-20 tablet (40 [facility] (PROTONIX) 00:00: 23:59 mg total) M edical 40 MG 00 :00 by mouth Center tablet daily for 30 days. magnesium 2021- No 400mg QD Take [address] [facility] oxide 09-20 tablet [facility] (MAG-OX) 00:00: 23:59 (400 mg Medic al 400 mg 00 :00 total) by Center (241.3 mg mouth magnesium) daily for tablet 30 days. losartan 2021-2021- No 25mg QD Take [address] (COZAAR) 25 09-20- tablet (25 L ukes MG tablet 00:00: 23:59 mg total) Me dical 00 :00 by mouth Center daily for 30 days. digoxin 2021-2021- No 62.5ug QD Take 0.[address] (LANOXIN) 09-20- tablets [facility]ukes 0.125 MG 00:00: 23:59 (62.5 mcg Med ical tablet 00 :00 total) by Center mouth daily for 30 days. aspirin 81 0 2021- No 81mg QD Take [address] [facility] [facility] MG EC 09-20-04 tablet (81 [facility] tablet 00:00: 23:59 mg total) Medic al 00 :00 by mouth Center daily for 30 days. amiodarone 2021- No 200mg QD Take [address] [facility] (PACERONE) 09-20 tablet [facility] 200 MG 00:00: 23:59 (200 mg Medical tablet 00 :00 total) by Center mouth daily for 30 days. atorvastati 2021- No 20mg QD Take [address] n (LIPITOR) 09-19 by mouth [place] [facility] 20 MG 15:53: 00:00 daily. Medical tablet 08 :00 Center albuterol 2021- No 2.5mg Take 2.[address] (PROVENTIL) 09-19 mg by [facility] 2.5 mg/0.5 15:53: 00:00 nebulizati Medical mL Nebu 08 :00 on every 6 Center nebulizer (six) solution hours as needed for Wheezing. docusate 2021- No 100mg QD Take [address] [facility] sodium 09-19 mg by [facility] (COLACE) 15:53: 00:00 mouth Medical 100 MG 08 :00 daily. Center capsule apixaban 2021- No 5mg Q.5D Take [address] [facility] (Eliquis) 5 09-19 by mouth 2 L ukes mg Tab 15:53: 00:00 (two) Medical tablet 08 :00 times Center daily. warfarin 2021- No 5mg QD Take [address] [facility] (COUMADIN, 09-19 tablet (5 [place] [facility] JANTOVEN) 5 00:00: 23:59 mg total) Medical MG tablet 00 :00 by mouth Center every evening for 30 days. tamsulosin 2021- No .4mg QD Take [address] [facility] (FLOMAX) 09-19 capsule [facility] 0.4 mg Cap 00:00: 23:59 (0.4 mg Med ical 24 hr 00 :00 total) by Center capsule mouth nightly for 30 days. senna-docus 2021- No 1{tbl} QD Take [address] ate 09-19 tablet by [facility] (SENOKOT S) 00:00: 23:59 mouth Medi allison 8.6-50 mg 00 :00 nightly Center per tablet for 30 days. polyethylen 2021- No 17g QD Take [address] [facility] e glycol 09-19 by mouth [facility] (GLYCOLAX) 00:00: 23:59 nightly Med ical 17 gram 00 :00 for 30 Center packet days. metoprolol 2021- No 12.5mg Q.5D Take 0.[address] tartrate 09-19- tablets [facility]ukes (LOPRESSOR) 00:00: 23:59 (12.5 mg M edical 25 MG 00 :00 total) by Center tablet mouth 2 (two) times daily for 30 days. guaiFENesin 2021- No 600mg Q.5D Take [address] (mucINEX) 09-19 tablet [facility] 600 mg 12 00:00: 23:59 (600 mg Medi allison hr tablet 00 :00 total) by Cente r mouth 2 (two) times daily for 30 days. gabapentin 2021- No 100mg QD Take [address] [facility] (NEURONTIN) 09-19 capsule Luke s 100 MG 00:00: 23:59 (100 mg Medical capsule 00 :00 total) by Center mouth nightly for 30 days. furosemide 2021- No 40mg Take [address] [facility] (LASIX) 40 09-19 tablet (40 [facility] MG tablet 00:00: 23:59 mg total) Me dical 00 :00 by mouth 2 Center (two) times daily for 30 days. atorvastati 2021- No 20mg QD Take [address] [facility] n (LIPITOR) 09-19 tablet (20 L ukes 20 MG 00:00: 23:59 mg total) Medica l tablet 00 :00 by mouth Center daily for 30 days. HYDROcodone 2021- No 1{tbl} Take [address] -acetaminop 09-19 tablet by [facility] (NORCO 00:00: 23:59 mouth Medic al 5-325) 00 :00 every 6 Center 5-325 mg (six) per tablet hours as needed for Pain for up to 7 days. Max Daily Amount: 4 tablets metoprolol 2020-08- No 75mg Take 75 mg [facility] (LOPRESSOR) 1-30 11-30 by mouth Col lege 50 MG 15:25: 00:00 two times of tablet 29 :00 daily. Medicin e atorvastati 2020-08 Yes 20mg Take 20 mg [facility] (LIPITOR) 1-30 by mouth. Col lege [...] tablet 07 Medicin e verapamil 2020-08 Yes [id number] 120mg Take 1 [facility] (VERELAN) 1-30 capsule by Mario ege 120 MG CR 00:00: mouth of capsule 00 daily. May Medici n take e additional 1 tablet daily as needed. ondansetron 2020-08 Yes [id number] 4mg Take 1 [facility] (ZOFRAN-ODT 1-30 Tablet by Col lege ) 4 mg 00:00: mouth of disintegrat 00 every 8 Medic in ing tablet hours as e needed for Nausea. ondansetron 2020-08 Yes [id number] 4mg Take 1 [facility] (ZOFRAN-ODT 1-30 Tablet by Col lege ) 4 mg 00:00: mouth of disintegrat 00 every 8 Medic in ing tablet hours as e needed for Nausea. verapamil 2020-08- No [id number] 120mg Take 1 [facility] (VERELAN) 1-30 02-24 capsule by Col lege 120 MG CR 00:00: 00:00 mouth of capsule 00 :00 daily. May Medici n take e additional 1 tablet daily as needed. atorvastati 2020-08 Yes 20mg Take 20 mg [facility] n (LIPITOR) 1-04 by mouth. Col [...] tablet 00 Medicin e docusate 2020-08 Yes [facility] sodium 0-17 College (COLACE) 00:00: of 100 MG 00 Medicin capsule e docusate 2020-08 Yes [facility] sodium 0-17 College (COLACE) 00:00: of 100 MG 00 Medicin capsule e metoprolol 2020-08- No [facility] (LOPRESSOR) 0-17 11-30 College 25 MG 00:00: 00:00 of tablet 00 :00 Medicin e promethazin 2020-08 Yes [facility] e 0-11 College (PHENERGAN) 00:00: of 12.5 MG 00 Medicin tablet e promethazin 2020-08 Yes [facility] e 0-11 College (PHENERGAN) 00:00: of 12.5 MG 00 Medicin tablet e promethazin 2020-08 Yes [facility] e 0-11 [place] (PHENERGAN) 00:00: of 12.5 MG 00 Medicin tablet e ondansetron 2020-08- No Weakness 4mg Take [address] [facility] (ZOFRAN-ODT 0-02 10-09 tablet (4 [facility] ) 4 MG 00:00: 23:59 mg total) Medic al disintegrat 00 :00 by mouth Cent er ing tablet every 12 (twelve) hours as needed for Nausea for up to 7 days. ondansetron 2020-08- No Weakness 4mg Take [address] [facility] (ZOFRAN-ODT 0- 10-02 tablet (4 [facility] ) 4 MG 00:00: 00:00 mg total) Medic al disintegrat 00 :00 by mouth Cent er ing tablet every 12 (twelve) hours as needed for Nausea for up to 7 days. Apixaban 5 2020-08- No 5mg Take 5 mg [facility] MG TABS 008-18 by mouth. Colleg e 00:00: 05:59 of 00 :00 Medicin e Apixaban 5 2020-08- No 5mg Take 5 mg [facility] MG TABS 08-18 by mouth College 00:00: 05:59 two times of 00 :00 daily. Medicin e apixaban 2020-08- No 5mg Q.5D Take [address] [facility] (ELIQUIS) 5 08-17 tablet (5 [facility] mg Tab 00:00: 23:59 mg total) Medic al tablet 00 :00 by mouth 2 Center (two) times daily for 90 days. polyethylen 2020- No 17g Q.5D Take [address] [facility] e glycol 05-17 by mouth 2 Luke s (GLYCOLAX) 00:00: 23:59 (two) Medic al 17 gram 00 :00 times Center packet daily for 3 days. furosemide 2020- No 40mg Take 40 mg [facility] (LASIX) 40 05-11 by mouth. Col lege MG tablet 00:00: 05:59 of 00 :00 Medicin e Aspirin 81 2020- No 81mg Take 81 mg [facility] MG tablet 05-11 by mouth. Mario ege 00:00: 05:59 of 00 :00 Medicin e furosemide 2020- No 40mg Take 40 mg [facility] (LASIX) 40 05-11 by mouth. Col lege MG tablet 00:00: 05:59 of 00 :00 Medicin e aspirin 81 2020-2020- No 81mg QD Take [address] [facility] MG EC 05-11 tablet (81 [facility] tablet 00:00: 23:59 mg total) Medic al 00 :00 by mouth Center daily for 90 days. furosemide 2020- No 40mg QD Take [address] [facility] (LASIX) 40 05-11 tablet (40 [facility] MG tablet 00:00: 23:59 mg total) Me dical 00 :00 by mouth Center daily for 90 days. Aspirin 81 2020- No 81mg Take 81 mg [facility] MG tablet 05-11 by mouth. Mario ege 00:00: 00:00 of 00 :00 Medicin e apixaban 2020- No 5mg Q.5D Take [address] [facility] (ELIQUIS) 5 05-11 tablet (5 [facility] mg Tab 00:00: 00:00 mg total) Medic al tablet 00 :00 by mouth 2 Center (two) times daily for 90 days. amiodarone 2020- No 200mg Q.5D Take [address] [facility] (PACERONE) 05-10 tablet [facility] 200 MG 00:00: 23:59 (200 mg Medical tablet 00 :00 total) by Center mouth 2 (two) times daily for 90 days. ferrous 2020- No 325mg Q.5D Take [address] [facility] sulfate 325 05-10 tablet [facility] (65 FE) MG 00:00: 23:59 (325 mg Med ical tablet 00 :00 total) by Center mouth 2 (two) times daily for 90 days. metoprolol 2020- No 75mg Q.5D Take 1.[address] tartrate 05-10 tablets [facility] (LOPRESSOR) 00:00: 23:59 (75 mg Med ical 50 MG 00 :00 total) by Center tablet mouth 2 (two) times daily for 90 days. pantoprazol 2020- No 40mg Q.5D Take [address] [facility] [facility] e 05-10 tablet (40 [facility] (PROTONIX) 00:00: 23:59 mg total) M edical 40 MG 00 :00 by mouth 2 Center tablet (two) times daily for 90 days. atorvastati Yes 20mg Take 20 mg Univers n 20 mg 04-22 by mouth ity of tablet 14:02: at [place] 00 bedtime. Medical Branch clopidogrel 2019-0 Yes [...] by mouth ity of tablet 14:02: at [place] 00 bedtime. Medical Branch clopidogrel 2018-0 Yes 75mg Take 75 mg Univers 75 mg 9-04 by mouth ity of tablet 14:02: daily. Medical Branch valsartan 2018-0 Yes 320mg Take 320 Uni vers 320 mg 9-04 mg by ity of tablet 14:02: mouth [place] 00 daily. Medical Branch atorvastati Yes 20mg Take 20 mg Univers n 20 mg 9-04 by mouth ity of tablet 14:02: at [place] 00 bedtime. Medical Branch clopidogrel 2018-0 Yes 75mg Take 75 mg Univers 75 mg 9-04 by mouth ity of tablet 14:02: daily. Medical Branch valsartan Yes 320mg Take 320 Uni vers 320 mg 9-04 mg by ity of tablet 14:02: mouth [place] 00 daily. Medical Branch ondansetron 0 Yes 4mg 4 mg, Slow Univers (ZOFRAN 9-04 IV Push, ity of (PF)) 13:19: PRN, 1 [place] injection 4 48 dose, Medical mg Starting Branch Sat04/22/19 at 0819, Until Discontinu ed, Routine, Nausea and Vomiting (N/V), PACU FENTanyl PF 2018-0 Yes 25ug 25 mcg, Uni vers (SUBLIMAZE 9-04 Slow IV ity of (PF)) 13:19: Push, [place] injection 47 Q5MIN PRN, Medi allison 25 mcg 4 doses, Branch Starting Sat04/22/19 at 08, Until Discontinu ed, Routine, Pain (scale 7-10), [...] Until Branch Discontinu ed, Routine, Intra-op simethicone 2018- Yes PRN, Univer s (GAS 04-22 Starting ity of RELIEF) 40 13:01: Sat04/22/19 [place] mg/0.6 mL 00 at 0801, Medica l drops Until Branch Discontinu ed, Routine, Intra-op propofol 2019- No [...] Source Name Name Pfizer SARS-CoV-2 2021-07-18 Completed [facility] Vaccination 00:00:00 of Medicine Pfizer SARS-CoV-2 2021-07-18 Completed [facility] Vaccination 00:00:00 of Medicine Pneumococcal 2021-07-[address] [facility] Conjugate (Prevnar) 00:00:00 [facility] 13-Valent Influenza Four-QIV 2021-07-[address] [facility] PF 6+MO IM ([id number]) 00:00:00 [facility] Pneumococcal 2021-05-[address] [facility] Conjugate (Prevnar) 00:00:00 [facility] Vital Signs Vital Name Observation Time Observation Value Comments Source WEIGHT 2021-05-06 08:52:00 88.2 kg WEIGHT 2021-05-03 09:54:00 92.08 kg HEIGHT 2021-04-28 15:00:00 165.1 cm Systolic blood 2021-10-12 14:35:00 116 mm[Hg] [facility] pressure Medicine Diastolic blood 2021-10-12 14:35:00 76 mm[Hg] [facility] Medicine Heart rate 2021-10-12 14:35:00 121 /min [facility] Respiratory rate 2021-10-12 14:35:00 16 /min [facility] Body height 2021-10-12 14:35:00 167.6 cm [facility] Body weight 2021-10-12 14:35:00 83.008 kg [facility] BMI 2021-10-12 14:35:00 29.54 kg/m2 [facility] Oxygen saturation in 2021-10-12 14:35:00 99 /min [facility] Arterial blood by Medicine Pulse oximetry HEIGHT 2021-10-04 08:58:00 167.6 cm WEIGHT 2021-10-04 08:58:00 74.39 kg HEIGHT 2021-10-04 08:58:00 167.6 cm WEIGHT 2021-10-04 [...] kg Systolic blood 2021-07-18 20:56:00 118 mm[Hg] [facility] pressure Medicine Diastolic blood 2021-07-18 20:56:00 70 mm[Hg] [facility] pressure Medicine Heart rate 2021-07-18 20:56:00 102 /min [facility] Respiratory rate 2021-07-18 20:56:00 16 /min [facility] Body height 2021-07-18 20:56:00 167.6 cm [facility] Body weight 2021-07-18 20:56:00 83.008 kg [facility] BMI 2021-07-18 20:56:00 29.54 kg/m2 [facility] Oxygen saturation in 2021-07-18 20:56:00 100 /min [facility] Arterial blood by Medicine Pulse oximetry [...] kg Systolic blood 2021-06-22 13:19:00 140 mm[Hg] [facility] pressure Medicine Diastolic blood 2021-06-22 13:19:00 82 mm[Hg] [facility] pressure Medicine Heart rate 2021-06-22 13:19:00 86 /min [facility] Body temperature 2021-06-22 13:19:00 36.83 Lalita [facility] Body height 2021-06-22 13:19:00 167.6 cm [facility] Body weight 2021-06-22 13:19:00 [facility] BMI 2021-06-22 13:19:00 30.15 kg/m2 [facility] WEIGHT 2021-05-23 22:20:00 83.643 kg [...] 2019-04-22 13:42:00 140 mm[Hg] [facility]iver [facility] Diastolic blood 2019-04-22 13:42:00 73 mm[Hg] Unive rsity of [facility] Heart rate 2019-04-22 13:42:00 56 /min [facility] Respiratory rate 2019-04-22 13:42:00 16 /min [facility] Oxygen saturation in 2019-04-22 13:42:00 99 /min [facility] Arterial blood by [facility] Pulse oximetry Branch Body temperature 2019-04-22 13:27:00 36.33 Lalita [facility] height 2019-04-17 16:00:00 162.6 cm [facility] Body weight 2019-04-17 16:00:00 91.173 kg [facility] BMI 2019-04-17 16:00:00 34.50 kg/m2 [facility] Systolic blood 2019-04-22 13:42:00 140 mm[Hg] Univer sity of [facility] Diastolic blood 2019-04-22 13:42:00 73 mm[Hg] Unive rsity of [facility] Heart rate 2019-04-22 13:42:00 56 /min [facility] Respiratory rate 2019-04-22 13:42:00 16 /min [facility] Oxygen saturation in 2019-04-22 13:42:00 99 /min [facility] Arterial blood by [facility] Pulse oximetry [place] Body temperature 2019-04-22 13:27:00 36.33 Lalita [facility] Body height 2019-04-17 16:00:00 162.6 cm [facility] Body weight 2019-04-17 16:00:00 91.173 kg [facility] BMI 2019-04-17 16:00:00 34.50 kg/m2 [facility] Systolic blood 2021-10-04 08:58:00 125 mm[Hg] [facility] Diastolic blood 2021-10-04 08:58:00 74 mm[Hg] [facility] Heart rate 2021-10-04 08:58:00 119 /min [facility] Respiratory rate 2021-10-04 08:58:00 16 /min [facility] Body height 2021-10-04 08:58:00 167.6 cm [facility] Body weight 2021-10-04 08:58:00 74.39 kg [facility] BMI 2021-10-04 08:58:00 26.47 kg/m2 [facility] Oxygen saturation in 2021-10-04 08:58:00 100 /min [facility] Arterial blood by Medical Ce [facility]ter Pulse oximetry Body temperature 2021-09-19 16:03:00 36.56 Lalita [facility] Procedures Procedure Date / Time Performing Source Performed Clinician ELECTROCARDIOGRAM COMPLETE 2021-10-12 Jennifer Kathleen [facility] 15:06:00 Medicine PHOSPHORUS 2021-09-[address] [facility] 03:23:00 [facility] CALCIUM, IONIZED 2021-09-19 Henry Vegas [facility] 03:23:00 [facility] CBC W/PLT COUNT & AUTO 2021-09-19 Henry Vegas [facility] DIFFERENTIAL 03:23:00 [facility] PROTHROMBIN TIME/INR 2021-09-19 Serenio, Henry [facility] 03:23:00 [facility] MAGNESIUM 2021-09-19 Juan Carlos Gabino [facility] 03:23:00 [facility] BASIC METABOLIC PANEL (7) 2021-09-[address] [facility] 03:23:00 [facility] CBC W/PLT COUNT & AUTO 2021-09-19 Serenio, Henry [facility] DIFFERENTIAL 03:23:00 [facility] XR CHEST 1 VIEW PORTABLE / BEDSIDE 2021-09-18 Blaine Perez haarcelia [facility] 04:55:00 [facility] MAGNESIUM 2021-09-[address] [facility] 03:25:00 [facility] PHOSPHORUS 2021-09-18 Serenio, Henry [facility] 03:25:00 [facility] CALCIUM, IONIZED 2021-09-18 Serenio, Henry [facility] 03:25:00 [facility] CBC W/PLT COUNT & AUTO 2021-09-18 Serenio, Henry [facility] DIFFER[facility] 03:25:00 [facility] PROTHROMBIN TIME/INR 2021-09-18 Serenio, Henry [facility] 03:25:00 [facility] BASIC METABOLIC PANEL (7) 2021-09-[address] [facility] 03:25:00 [facility] COMPREHENSIVE METABOLIC PANEL 2021-09-18 Phong Norwood [facility] 03:25:00 [facility] CBC W/PLT COUNT & AUTO 2021-09-18 Serenio, Henry [facility] DIFFERENTIAL 03:25:00 [facility] POCT-GLUCOSE METER 2021-09-17 Juan Carlos Gabino [facility] 17:26:00 [facility] POCT-GLUCOSE METER 2021-09-17 Juan Carlos Gabino [facility] 12:28:00 [facility] POCT-GLUCOSE METER 2021-09-17 Juan Carlos Gabino [facility] 07:58:00 [facility] PHOSPHORUS 2021-09-17 Serenio, Henry [facility] 07:50:00 [facility] MAGNESIUM 2021-09-17 Serenio, Henry [facility] 07:50:00 [facility] CALCIUM, IONIZED 2021-09-17 Serenio, Henry [facility] 05:41:00 [facility] CBC W/PLT COUNT & AUTO 2021-09-17 Serenio, Henry [facility] DIFFERENTIAL 05:41:00 [facility] PROTHROMBIN TIME/INR 2021-09-17 Serenio, Henry [facility] 05:41:00 [facility] CBC W/PLT COUNT & AUTO 2021-09-17 Serenio, Henry [facility] DIFFERENTIAL 05:41:00 [facility] XR CHEST 1 VIEW PORTABLE / BEDSIDE 2021-09-17 Chris Blaine hael [facility] 04:47:00 [facility] POCT-GLUCOSE METER 2021-09-16 Juan Carlos Gabino [facility] 21:47:00 [facility] MAGNESIUM 2021-09-16 Serenio, Henry [facility] 17:37:00 [facility] POCT-GLUCOSE METER 2021-09-[address] [facility] 17:17:00 [facility] POCT-GLUCOSE METER 2021-09-[address] [facility] 12:41:00 [facility] POCT-GLUCOSE METER 2021-09-[address] [facility] 07:47:00 [facility] XR CHEST 1 VIEW PORTABLE / BEDSIDE 2021-09-16 Blaine Perez hael [facility] 05:13:00 [facility] MAGNESIUM 2021-09-16 Serenio, Henry [facility] 04:03:00 [facility] PHOSPHORUS 2021-09-16 Serenio, Henry [facility] 04:03:00 [facility] CALCIUM, IONIZED 2021-09-16 Serenio, Henry [facility] 04:03:00 [facility] CBC W/PLT COUNT & AUTO 2021-09-16 Serenio, Henry [facility] DIFFER[facility] 04:03:00 [facility] PROTHROMBIN TIME/INR 2021-09-16 Serenio, Henry [facility] 04:03:00 [facility] APTT 2021-09-[address] [facility] 04:03:00 [facility] BASIC METABOLIC PANEL (7) 2021-09-[address] [facility] 04:03:00 [facility] CBC W/PLT COUNT & AUTO 2021-09-16 Serenio, Henry [facility] DIFFERENTIAL 04:03:00 [facility] POCT-GLUCOSE METER 2021-09-15 Juan Carlos Gabino [facility] 20:46:00 [facility] POCT-GLUCOSE METER 2021-09-15 Arnold, Gabino [facility] 17:08:00 [facility] POCT-GLUCOSE METER 2021-09-15 Juan Carlos Gabino [facility] 12:04:00 [facility] POCT-GLUCOSE METER 2021-09-[address] [facility] 07:15:00 [facility] XR CHEST 1 VIEW PORTABLE / BEDSIDE 2021-09-[address] h [facility] 04:42:00 [facility] HEPATIC FUNCTION PANEL 2021-09-15 Serenio, Henry [facility] 03:54:00 [facility] PHOSPHORUS 2021-09-15 Serenio, Henry [facility] 03:54:00 [facility] CALCIUM, IONIZED 2021-09-15 Serenio, Henry [facility] 03:54:00 [facility] CBC W/PLT COUNT & AUTO 2021-09-15 Serenio, Henry [facility] 03:54:00 [facility] MAGNESIUM 2021-09-15 Serenio, Henry [facility] 03:54:00 [facility] PROTHROMBIN TIME/INR 2021-09-15 Serenio, Henry [facility] 03:54:00 [facility] BASIC METABOLIC PANEL (7) 2021-09-15 Yariel, Umar [facility] 03:54:00 [facility] APTT 2021-09-15 Yariel, Umar [facility] 03:54:00 [facility] CBC W/PLT COUNT & AUTO 2021-09-15 Serenio, Henry [facility] DIFFER[facility] 03:54:00 [facility] ECG 12-LEAD 2021-09-15 Zully Lagunaan A [facility] 01:56:37 [facility] ECG 12-LEAD 2021-09-15 Unknown, Hl7 [facility] 01:56:37 [facility] ECG 12-LEAD 2021-09-[address] [facility] 01:56:09 [facility] ECG 12-LEAD 2021-09-15 Unknown, Hl7 [facility] 01:56:09 [facility] ECG 12-LEAD 2021-09-[address] [facility] 01:55:34 [facility] ECG 12-LEAD 2021-09-15 Unknown, Hl7 [facility] 01:55:34 [facility] PREPARE LEUKO-REDUCED RBC 2021-09-[address] [facility] 23:55:00 [facility] POCT-GLUCOSE METER 2021-09-[address] [facility] 21:03:00 [facility] MAGNESIUM 2021-09-[address] [facility] 20:55:00 [facility] BASIC METABOLIC PANEL (7) 2021-09-[address] [facility] 09:06:00 [facility] POCT-GLUCOSE METER 2021-09-[address] [facility] 07:23:00 [facility] HEPATIC FUNCTION PANEL 2021-09-14 Serenisanto, Henry [facility] 04:56:00 [facility] PHOSPHORUS 2021-09-[address] [facility] 04:56:00 [facility] CALCIUM, IONIZED 2021-09-14 Serenio, Henry [facility] 04:56:00 [facility] CBC W/PLT COUNT & AUTO 2021-09-14 Serenio, Henry [facility]FFER[facility] 04:56:00 [facility] BASIC METABOLIC PANEL (7) 2021-09-14 Serenio, Henry [facility] 04:56:00 [facility] MAGNESIUM 2021-09-14 Serenio, Henry [facility] 04:56:00 [facility] APTT 2021-09-14 Serenio, Henry [facility] 04:56:00 [facility] PROTHROMBIN TIME/INR 2021-09-[address] [facility] 04:56:00 [facility] CBC W/PLT COUNT & AUTO 2021-09-14 Serenio, Henry [facility] DIFFERENTIAL 04:56:00 [facility] XR CHEST 1 VIEW PORTABLE / BEDSIDE 2021-09-[address]Marec [address] h [facility] 00:53:00 [facility] POCT-GLUCOSE METER 2021-09-13 Alberto, Raz [facility] 22:05:00 [facility] BASIC METABOLIC PANEL (7) 2021-09-[address] [facility] 17:17:00 [facility] MAGNESIUM 2021-09-13 Serkaylah, Henry [facility] 17:17:00 [facility] POCT-GLUCOSE METER 2021-09-13 Alberto, Raz [facility] 17:16:00 [facility] ECG 12-LEAD 2021-09-13 Unknown, Hl7 [facility] 14:33:16 [facility] ECG 12-LEAD 2021-09-13 Unknown, Hl7 [facility] 13:30:46 [facility] ECG 12-LEAD 2021-09-13 Unknown, Hl7 [facility] 13:29:58 [facility] ECG 12-LEAD 2021-09-[address] [facility] 13:29:37 [facility] ECG 12-LEAD 2021-09-13 Unknown, Hl7 [facility] 13:29:37 [facility] ECG 12-LEAD 2021-09-13 Unknown, Hl7 [facility] 13:29:07 [facility] ECG 12-LEAD 2021-09-13 Unknown, Hl7 [facility] 13:24:42 [facility] ECG 12-LEAD 2021-09-[address] [facility] 12:51:16 [facility] ECG 12-LEAD 2021-09-13 Unknown, Hl7 [facility] 12:51:16 [facility] ECG 12-LEAD 2021-09-13 Unknown, Hl7 [facility] 12:50:38 [facility] ECG 12-LEAD 2021-09-13 Unknown, Hl7 [facility] 12:46:16 [facility] POCT-GLUCOSE METER 2021-09-[address] [facility] 11:06:00 [facility] 2D ECHO W/ DOPPLER (CW/PW/COLOR) 2021-09-[address] [facility] 10:29:22 [facility] BASIC METABOLIC PANEL (7) 2021-09-[address] [facility] 10:15:00 [facility] MAGNESIUM 2021-09-[address] [facility] 10:15:00 [facility] TRANSFUSE LEUKO-REDUCED RED BLOOD 2021-09-[address] [facility] 10:15:00 [facility] TYPE AND SCREEN, AUTOMATED 2021-09-13 Ezequiel Herve [facility] 08:41:00 [facility] POCT-GLUCOSE METER 2021-09-[address] [facility] 07:48:00 [facility] XR CHEST 1 VIEW PORTABLE / BEDSIDE 2021-09-13 SerJama[address]p h [facility] 02:03:00 [facility] HEPATIC FUNCTION PANEL 2021-09-13 Serenio, Henry [facility] 01:50:00 [facility] PHOSPHORUS 2021-09-13 Serenio, Henry [facility] 01:50:00 [facility] CALCIUM, IONIZED 2021-09-13 Serenio, Henry [facility] 01:50:00 [facility] CBC W/PLT COUNT & AUTO 2021-09-13 Serenio, Henry [facility]FFER[facility] 01:50:00 [facility] BASIC METABOLIC PANEL (7) 2021-09-13 Serenio, Henry [facility] 01:50:00 [facility] MAGNESIUM 2021-09-13 Serenio, Henry [facility] 01:50:00 [facility] APTT 2021-09-13 Serfrankio, Henry [facility] 01:50:00 [facility] BLOOD GAS, VENOUS 2021-09-[address] [facility] 01:50:00 [facility] PROTHROMBIN TIME/INR 2021-09-[address] [facility] 01:50:00 [facility] CBC W/PLT COUNT & AUTO 2021-09-13 Ascencion, Henry [facility] DIFFER[facility] 01:50:00 [facility] HC VENOUS DOPPLER EXT UNI 2021-09-[address] [facility] 22:09:00 [facility] POCT-GLUCOSE METER 2021-09-12 Keith-Lewis, Raz [facility] 21:56:00 [facility] POCT-GLUCOSE METER 2021-09-[address] LouisLewis, Raz [facility] 16:06:00 [facility] MAGNESIUM 2021-09-[address] [facility] 11:57:00 [facility] POTASSIUM 2021-09-12 Luz Elena Kameron A [facility] 11:57:00 [facility] PHOSPHORUS 2021-09-12 Luz Elena Kameron A [facility] 11:57:00 [facility] CALCIUM, IONIZED 2021-09-12 Luz Elena Kameron A [facility] 11:57:00 [facility] POCT-GLUCOSE METER 2021-09-[address] LouisLewis, Raz [facility] 11:18:00 [facility] POCT-GLUCOSE METER 2021-09-[address] LouisLewis, Raz [facility] 07:50:00 [facility] ECG 12-LEAD 2021-09-12 Unknown, Hl7 [facility] 07:21:58 [facility] BLOOD GAS, ARTERIAL 2021-09-[address] [facility] 03:21:00 [facility] BASIC METABOLIC PANEL (7) 2021-09-12 Serkaylah, Henry [facility] 03:20:00 [facility] HEPATIC FUNCTION PANEL 2021-09-12 Ascencion, Henry [facility] 03:20:00 [facility] MAGNESIUM 2021-09-12 Serkaylah, Henry [facility] 03:20:00 [facility] PHOSPHORUS 2021-09-12 Serkaylah, Henry [facility] 03:20:00 [facility] CALCIUM, IONIZED 2021-09-12 Serenio, Henry [facility] 03:20:00 [facility] CBC W/PLT COUNT & AUTO 2021-09-12 Serenio, Henry [facility] 03:20:00 [facility] PT/APTT 2021-09-12 Serenio, Henry [facility] 03:20:00 [facility] LACTIC ACID, ARTERIAL 2021-09-12 Serenio, Henry [facility] 03:20:00 [facility] CBC W/PLT COUNT & AUTO 2021-09-12 Serenio, Henry [facility] 03:20:00 [facility] XR CHEST 1 VIEW PORTABLE / BEDSIDE 2021-09-[address] [facility] 01:10:00 [facility] HC VENOUS DOPPLER EXT UNI 2021-09-[address] [facility] 23:31:00 [facility] BASIC METABOLIC PANEL (7) 2021-09-[address] [facility] 20:26:00 [facility] MAGNESIUM 2021-09-[address] [facility] 20:26:00 [facility] HEMOGLOBIN AND HEMATOCRIT 2021-09-11 Serfrankio, Henry [facility] 20:26:00 [facility] POCT-GLUCOSE METER 2021-09-11 Sagar-Joshua Raz [facility] 20:25:00 [facility] POCT-GLUCOSE METER 2021-09-11 Keith-Lewis, Raz [facility] 16:07:00 [facility] BASIC METABOLIC PANEL (7) 2021-09-[address] [facility] 12:13:00 [facility] MAGNESIUM 2021-09-[address] [facility] 12:13:00 [facility] OXYGEN SATURATION, MEASURED 2021-09-[address] [facility] 12:13:00 [facility] PHOSPHORUS 2021-09-[address] [facility] 12:13:00 [facility] CALCIUM, IONIZED 2021-09-11 Zully [address]unaan A [facility] 12:13:00 [facility] POCT-GLUCOSE METER 2021-09-[address] [facility] 11:00:00 [facility] POCT-GLUCOSE METER 2021-09-11 JingJean-Claude lathamooq [facility] 08:18:00 [facility] OXYGEN SATURATION, MEASURED 2021-09-11 Jean-Claude Chooq [facility] 06:13:00 [facility] BASIC METABOLIC PANEL (7) 2021-09-[address] [facility] 03:45:00 [facility] HEPATIC FUNCTION PANEL 2021-09-11 Serenio, Henry [facility] 03:45:00 [facility] MAGNESIUM 2021-09-11 Serfrankio, Henry [facility] 03:45:00 [facility] PHOSPHORUS 2021-09-11 Serfrankio, Henry [facility] 03:45:00 [facility] OXYGEN SATURATION, MEASURED 2021-09-[address] [facility] 03:45:00 [facility] CALCIUM, IONIZED 2021-09-11 Serenio, Henry [facility] 03:45:00 [facility] CBC W/PLT COUNT & AUTO 2021-09-11 Serkaylah, Henry [facility] 03:45:00 [facility] PT/APTT 2021-09-11 Serkaylah, Henry [facility] 03:45:00 [facility] LACTIC ACID, ARTERIAL 2021-09-[address] [facility] 03:45:00 [facility] CBC W/PLT COUNT & AUTO 2021-09-11 Serenio, Henry [facility] 03:45:00 [facility] BLOOD GAS, ARTERIAL 2021-09-11 Serenio, Henry [facility] 03:44:00 [facility] XR CHEST 1 VIEW PORTABLE / BEDSIDE 2021-09-[address] [facility] 00:33:00 [facility] BASIC METABOLIC PANEL (7) 2021-09-10 Serenio, Henry [facility] 22:08:00 [facility] MAGNESIUM 2021-09-10 Serenio, Henry [facility] 22:08:00 [facility] HEMOGLOBIN AND HEMATOCRIT 2021-09-10 Serenio, Henry [facility] 22:08:00 [facility] POCT-GLUCOSE METER 2021-09-10 Jing, Jerrell [facility] 22:06:00 [facility] POCT-GLUCOSE METER 2021-09-10 Jing, Jerrell [facility] 16:49:00 [facility] OXYGEN SATURATION, MEASURED 2021-09-[address] [facility] 15:32:00 [facility] 2D ECHO W/ DOPPLER (CW/PW/COLOR) 2021-09-[address] [facility] 14:37:25 [facility] BASIC METABOLIC PANEL (7) 2021-09-[address] [facility] 12:58:00 [facility] MAGNESIUM 2021-09-[address] [facility] 12:58:00 [facility] CALCIUM, IONIZED 2021-09-10 Kameron Laguna A [facility] 12:58:00 [facility] POCT-GLUCOSE METER 2021-09-10 Jing, Jerrell [facility] 11:14:00 [facility] ECG 12-LEAD 2021-09-10 Zully Lagunaan A [facility] 10:42:11 [facility] ECG 12-LEAD 2021-09-10 Unknown, Hl7 [facility] 10:42:11 [facility] ECG 12-LEAD 2021-09-10 Unknown, Hl7 [facility] 10:41:54 [facility] POCT-GLUCOSE METER 2021-09-10 Jing, Jerrell [facility] 07:42:00 [facility] BLOOD GAS, ARTERIAL 2021-09-10 Serenio, Henry [facility] 04:31:00 [facility] BASIC METABOLIC PANEL (7) 2021-09-[address] [facility] 04:28:00 [facility] HEPATIC FUNCTION PANEL 2021-09-10 Serkaylah, Henry [facility] 04:28:00 [facility] MAGNESIUM 2021-09-10 Serenio, Henry [facility] 04:28:00 [facility] PHOSPHORUS 2021-09-10 Serenio, Henry [facility] 04:28:00 [facility] CALCIUM, IONIZED 2021-09-10 Serenio, Henry [facility] 04:28:00 [facility] CBC W/PLT COUNT & AUTO 2021-09-10 Serenio, Henry [facility]FFER[facility] 04:28:00 [facility] PT/APTT 2021-09-10 Serenio, Henry [facility] 04:28:00 [facility] LACTIC ACID, ARTERIAL 2021-09-10 Serenio, Henry [facility] 04:28:00 [facility] CBC W/PLT COUNT & AUTO 2021-09-10 Serenio, Henry [facility] DIFFER[facility] 04:28:00 [facility] OXYGEN SATURATION, MEASURED 2021-09-10 Serenio, Henry [facility] 04:27:00 [facility] XR CHEST 1 VIEW PORTABLE / BEDSIDE 2021-09-10 Serenio, Ralp h [facility] 01:45:00 [facility] PREPARE LEUKO-REDUCED RBC 2021-09-09 Otuonye, Gene [facility] 23:54:00 [facility] POCT-GLUCOSE METER 2021-09-[address] [facility] 22:06:00 [facility] BASIC METABOLIC PANEL (7) 2021-09-09 Serenio, Henry [facility] 19:37:00 [facility] LACTIC ACID, ARTERIAL 2021-09-09 Serenio, Henry [facility] 19:37:00 [facility] MAGNESIUM 2021-09-09 Serenio, Henry [facility] 19:37:00 [facility] PHOSPHORUS 2021-09-09 Serenio, Henry [facility] 19:37:00 [facility] OXYGEN SATURATION, MEASURED 2021-09-09 Serenio, Henry [facility] 19:37:00 [facility] HEMOGLOBIN AND HEMATOCRIT 2021-09-09 Serenio, Henry [facility] 19:37:00 [facility] CALCIUM, IONIZED 2021-09-[address] [facility] 19:37:00 [facility] OXYGEN SATURATION, MEASURED 2021-09-09 Maryrajesh Pablito Bettencourt [facility] 09:44:00 [facility] OXYGEN SATURATION, MEASURED 2021-09-09 Jing, Jerrell [facility] 05:07:00 [facility] ECG 12-LEAD 2021-09-09 Unknown, Hl7 [facility] 04:50:00 [facility] ECG 12-LEAD 2021-09-[address] [facility] 04:48:23 [facility] ECG 12-LEAD 2021-09-09 Unknown, Hl7 [facility] 04:48:23 [facility] ECG 12-LEAD 2021-09-09 Unknown, Hl7 [facility] 04:47:37 [facility] POCT-GLUCOSE METER 2021-09-09 Jing, Jerrell [facility] 02:53:00 [facility] COMPREHENSIVE METABOLIC PANEL 2021-09-09 K[address] [facility] 02:46:00 [facility] MAGNESIUM 2021-09-[address] [facility] 02:46:00 [facility] PHOSPHORUS 2021-09-[address] [facility] 02:46:00 [facility] CBC (HEMOGRAM ONLY) 2021-09-[address] [facility] 02:46:00 [facility] BLOOD GAS, ARTERIAL 2021-09-[address] [facility] 02:46:00 [facility] CALCIUM, IONIZED 2021-09-[address] [facility] 02:46:00 [facility] XR CHEST 1 VIEW PORTABLE / BEDSIDE 2021-09-[address] [facility] 00:53:00 [facility] PREPARE LEUKO-REDUCED RBC 2021-09-[address] [facility] 23:55:00 [facility] POCT-GLUCOSE METER 2021-09-08 Jing, Jerrell [facility] 21:03:00 [facility] POCT-GLUCOSE METER 2021-09-08 Jing, Jerrell [facility] 18:03:00 [facility] CALCIUM, IONIZED 2021-09-[address] [facility] 15:03:00 [facility] POTASSIUM 2021-09-08 Luz Elena Kameron Bettencourt [facility] 15:03:00 [facility] MAGNESIUM 2021-09-[address] [facility] 15:03:00 [facility] CBC W/PLT COUNT & AUTO 2021-09-[address] [facility] DIFFERENTIAL 15:03:00 [facility] CBC W/PLT COUNT & AUTO 2021-09-08 Learning Technologist, Nandini [facility] DIFFERENTIAL 15:03:00 [facility] POCT-GLUCOSE METER 2021-09-08 Jing, Jerrell [facility] 12:04:00 [facility] TRANSFUSE LEUKO-REDUCED RED BLOOD 2021-09-08 Sebastiánonyrajesh Gene [facility] CELLS 11:50:00 [facility] POCT-GLUCOSE METER 2021-09-08 Jing, Jerrell [facility] 10:20:00 [facility] HEMOGLOBIN AND HEMATOCRIT 2021-09-[address] [facility] 10:18:00 [facility] 2D ECHO W/ DOPPLER (CW/PW/COLOR) 2021-09-08 Ev[address] Ryder [address] [facility] 09:30:34 [facility] OXYGEN SATURATION, MEASURED 2021-09-08 Sebastiánonye, Gene [facility] 09:05:00 [facility] POCT-GLUCOSE METER 2021-09-08 Jing, Jerrell [facility] 09:00:00 [facility] LACTIC ACID, ARTERIAL 2021-09-[address] [facility] 08:58:00 [facility] BLOOD GAS, ARTERIAL 2021-09-08 Otuonye, Gene [facility] 08:58:00 [facility] POCT-GLUCOSE METER 2021-09-08 Jing, Jerrell [facility] 08:09:00 [facility] POCT-GLUCOSE METER 2021-09-08 Jing, Jerrell [facility] 06:03:00 [facility] LACTIC ACID, ARTERIAL 2021-09-08 Wynot, Uselyn [facility] 05:53:00 [facility] RRL CRITICAL LABS 2021-09-08 Wynot, Uselyn [facility] (ABG,NA,K,H&H,GLUCOSE) 05:53:00 [place] [facility] BLOOD GAS, ARTERIAL 2021-09-08 Wynot, Uselyn [facility] 05:53:00 [facility] SODIUM NA-STAT LAB 2021-09-08 Wynot, Uselyn [facility] 05:53:00 [facility] POTASSIUM-STAT LAB 2021-09-08 Wynot, Uselyn [facility] 05:53:00 [facility] GLUCOSE-STAT LAB 2021-09-08 Wynot, Uselyn [facility] 05:53:00 [facility] HGB/HCT (H&H) - STAT LAB 2021-09-08 Wynot, Uselyn [facility] 05:53:00 [facility] POCT-GLUCOSE METER 2021-09-08 Jing, Jerrell [facility] 05:03:00 [facility] POCT-GLUCOSE METER 2021-09-08 Jing, Jerrell [facility] 04:15:00 [facility] OXYGEN SATURATION, MEASURED 2021-09-08 Wynot, Uselyn [facility] 04:03:00 [facility] BLOOD GAS, ARTERIAL 2021-09-08 Wynot, Uselyn [facility] 04:02:00 [facility] RRL CRITICAL LABS 2021-09-08 Wynot, Uselyn [facility] (ABG,NA,K,H&H,GLUCOSE) 04:02:00 [place] enter SODIUM NA-STAT LAB 2021-09-08 Wynot, Uselyn [facility] 04:02:00 [facility] POTASSIUM-STAT LAB 2021-09-08 Wynot, Uselyn [facility] 04:02:00 [facility] GLUCOSE-STAT LAB 2021-09-08 Wynot, Uselyn [facility] 04:02:00 [facility] HGB/HCT (H&H) - STAT LAB 2021-09-08 Wynot, Uselyn [facility] 04:02:00 [facility] POCT-GLUCOSE METER 2021-09-08 Jing, Jerrell [facility] 02:59:00 [facility] CBC W/PLT COUNT & AUTO 2021-09-08 Jean-Claudejo, Bashar [facility] DIFFERENTIAL 02:31:00 [facility] COMPREHENSIVE METABOLIC PANEL 2021-09-08 Luz Elena Kameron [facility] 02:31:00 [facility] MAGNESIUM 2021-09-08 Koeckert, Larry [facility] 02:31:00 [facility] PHOSPHORUS 2021-09-08 Koeckert, Larry [facility] 02:31:00 [facility] CALCIUM, IONIZED 2021-09-08 Wynot, Uselyn [facility] 02:31:00 [facility] CBC W/PLT COUNT & AUTO 2021-09-08 Fernanda, Basuziel [facility] DIFFERENTIAL 02:31:00 [facility] LACTIC ACID, ARTERIAL 2021-09-08 Delmi, Uselyn [facility] 02:30:00 [facility] RRL CRITICAL LABS 2021-09-08 Wynot, Uselyn [facility] (ABG,NA,K,H&H,GLUCOSE) 02:30:00 [place] enter BLOOD GAS, ARTERIAL 2021-09-08 Delmi, Uselyn [facility] 02:30:00 [facility] SODIUM NA-STAT LAB 2021-09-08 Wynot, Uselyn [facility] 02:30:00 [facility] POTASSIUM-STAT LAB 2021-09-08 Delmi, Uselyn [facility] 02:30:00 [facility] GLUCOSE-STAT LAB 2021-09-08 Wynot, Uselyn [facility] 02:30:00 [facility] HGB/HCT (H&H) - STAT LAB 2021-09-08 Wynot, Uselyn [facility] 02:30:00 [facility] POCT-GLUCOSE METER 2021-09-08 Jing, Jerrell [facility] 02:11:00 [facility] POCT-GLUCOSE METER 2021-09-08 Jing, Jerrell [facility] 01:00:00 [facility] OXYGEN SATURATION, MEASURED 2021-09-08 Wynot, Uselyn [facility] 00:55:00 [facility] XR CHEST 1 VIEW PORTABLE / BEDSIDE 2021-09-[address] [facility] 00:43:00 [facility] POCT-GLUCOSE METER 2021-09-07 Jing, Jerrell [facility] 23:59:00 [facility] RRL CRITICAL LABS 2021-09-07 Wynot, Uselyn [facility] (ABG,NA,K,H&H,GLUCOSE) 23:54:00 [place] enter BLOOD GAS, ARTERIAL 2021-09-07 Wynot, Uselyn [facility] 23:54:00 [facility] SODIUM NA-STAT LAB 2021-09-07 Wynot, Uselyn [facility] 23:54:00 [facility] POTASSIUM-STAT LAB 2021-09-07 Wynot, Uselyn [facility] 23:54:00 [facility] GLUCOSE-STAT LAB 2021-09-07 Wynot, Uselyn [facility] 23:54:00 [facility] HGB/HCT (H&H) - STAT LAB 2021-09-07 Wynot, Uselyn [facility] 23:54:00 [facility] POCT-GLUCOSE METER 2021-09-07 Jing, Jerrell [facility] 23:04:00 [facility] POCT-GLUCOSE METER 2021-09-07 Jing, Jerrell [facility] 22:03:00 [facility] APTT 2021-09-[address] [facility] 21:58:00 [facility] LACTIC ACID, ARTERIAL 2021-09-07 Wynot, Uselyn [facility] 21:58:00 [facility] RRL CRITICAL LABS 2021-09-07 Wynot, Uselyn [facility] (ABG,NA,K,H&H,GLUCOSE) 21:57:00 [place] [facility] BLOOD GAS, ARTERIAL 2021-09-07 Wynot, Uselyn [facility] 21:57:00 [facility] SODIUM NA-STAT LAB 2021-09-07 Wynot, Uselyn [facility] 21:57:00 [facility] POTASSIUM-STAT LAB 2021-09-07 Wynot, Uselyn [facility] 21:57:00 [facility] GLUCOSE-STAT LAB 2021-09-07 Wynot, Uselyn [facility] 21:57:00 [facility] HGB/HCT (H&H) - STAT LAB 2021-09-07 Wynot, Uselyn [facility] 21:57:00 [facility] POCT-GLUCOSE METER 2021-09-[address] [facility] 20:34:00 [facility] BASIC METABOLIC PANEL (7) 2021-09-07 Wynot, Uselyn [facility] 20:27:00 [facility] RRL CRITICAL LABS 2021-09-07 Wynot, Uselyn [facility] (ABG,NA,K,H&H,GLUCOSE) 20:27:00 [place] [facility] BLOOD GAS, ARTERIAL 2021-09-07 Wynot, Uselyn [facility] 20:27:00 [facility] SODIUM NA-STAT LAB 2021-09-07 Wynot, Uselyn [facility] 20:27:00 [facility] POTASSIUM-STAT LAB 2021-09-07 Wynot, Uselyn [facility] 20:27:00 [facility] GLUCOSE-STAT LAB 2021-09-07 Wynot, Uselyn [facility] 20:27:00 [facility] HGB/HCT (H&H) - STAT LAB 2021-09-07 Wynot, Uselyn [facility] 20:27:00 [facility] OXYGEN SATURATION, MEASURED 2021-09-[address] [facility] 19:02:00 [facility] BLOOD GAS, ARTERIAL 2021-09-[address] [facility] 18:48:00 [facility] LACTIC ACID, ARTERIAL 2021-09-[address] [facility] 18:48:00 [facility] CBC (HEMOGRAM ONLY) 2021-09-[address] [facility] 18:48:00 [facility] ECG 12-LEAD 2021-09-[address] [facility] 18:45:09 [facility] ECG 12-LEAD 2021-09-07 Unknown, Hl7 [facility] 18:45:09 [facility] POCT-GLUCOSE METER 2021-09-[address] [facility] 18:17:00 [facility] LACTIC ACID, ARTERIAL 2021-09-[address] [facility] 17:07:00 [facility] RRL CRITICAL LABS 2021-09-07 Learning Technologist, Nandini [facility] (ABG,NA,K,H&H,GLUCOSE) 17:07:00 [facility] enter BLOOD GAS, ARTERIAL 2021-09-[address] [facility] 17:07:00 [facility] SODIUM NA-STAT LAB 2021-09-[address] [facility] 17:07:00 [facility] POTASSIUM-STAT LAB 2021-09-07 Learning Technologist, Nandini [facility] 17:07:00 [facility] GLUCOSE-STAT LAB 2021-09-[address] [facility] [facility] 17:07:00 [facility] HGB/HCT (H&H) - STAT LAB 2021-09-07 Learning Technologist, Nandini [facility] 17:07:00 [facility] TRANSFUSE LEUKO-REDUCED RED BLOOD 2021-09-[address] [facility] [facility] CELLS 16:52:00 [facility] XR CHEST 1 VIEW PORTABLE / BEDSIDE 2021-09-[address] [facility] 15:16:00 [facility] BASIC METABOLIC PANEL (7) 2021-09-[address] [facility] 15:15:00 [facility] MAGNESIUM 2021-09-[address] [facility] 15:15:00 [facility] BLOOD GAS, ARTERIAL 2021-09-[address] [facility] 15:15:00 [facility] CBC W/PLT COUNT & AUTO 2021-09-[address] [facility] DIFFERENTIAL 15:15:00 [facility] PROTHROMBIN TIME/INR 2021-09-[address] [facility] 15:15:00 [facility] PT/APTT 2021-09-07 Mau, [facility] 15:15:00 [facility] FIBRINOGEN 2021-09-07 Kodakandla, [facility] 15:15:00 [facility] LACTIC ACID, ARTERIAL 2021-09-07 Mau, [facility] 15:15:00 [facility] PHOSPHORUS 2021-09-07 Kodakandla, [facility] 15:15:00 [facility] OXYGEN SATURATION, MEASURED 2021-09-07 Mau, [facility] 15:15:00 [facility] CBC W/PLT COUNT & AUTO 2021-09-[address] [facility] DIFFERENTIAL 15:15:00 [facility] PREPARE RBC 2021-09-[address] [facility] 14:47:00 [facility] PREPARE PLASMA 2021-09-[address] [facility] 14:47:00 [facility] ANESTHESIA PERIPHERAL BLOCK 2021-09-[address] [facility] 14:40:56 [facility] RRL CRITICAL LABS 2021-09-[address] [facility] (ABG,NA,K,H&H,GLUCOSE) 13:26:59 [facility] enter CALCIUM, IONIZED 2021-09-[address] [facility] 13:26:59 [facility] BLOOD GAS, ARTERIAL 2021-09-[address] [facility] 13:26:59 [facility] SODIUM NA-STAT LAB 2021-09-[address] [facility] 13:26:59 [facility] POTASSIUM-STAT LAB 2021-09-[address] [facility] [facility] 13:26:59 [facility] GLUCOSE-STAT LAB 2021-09-[address] [facility] 13:26:59 [facility] HGB/HCT (H&H) - STAT LAB 2021-09-[address] [facility] 13:26:59 [facility] POCT-ACT 2021-09-[address] [facility] 13:03:00 [facility] PLATELET COUNT 2021-09-[address] [facility] 12:59:25 [facility] CBC W/PLT COUNT & AUTO 2021-09-[address] [facility] DIFFERENTIAL 12:59:00 [facility] CBC W/PLT COUNT & AUTO 2021-09-[address] [facility] DIFFERENTIAL 12:59:00 [facility] RRL CRITICAL LABS 2021-09-[address] [facility] (ABG,NA,K,H&H,GLUCOSE) 12:42:36 [facility] enter CALCIUM, IONIZED 2021-09-07 Darrel Hidalgo [facility] 12:42:36 [facility] PROTHROMBIN TIME/INR 2021-09-[address] [facility] 12:42:36 [facility] APTT 2021-09-[address] [facility] 12:42:36 [facility] FIBRINOGEN 2021-09-[address] [facility] 12:42:36 [facility] BLOOD GAS, ARTERIAL 2021-09-[address] [facility] 12:42:36 [facility] SODIUM NA-STAT LAB 2021-09-[address] [facility] 12:42:36 [facility] POTASSIUM-STAT LAB 2021-09-[address] [facility] 12:42:36 [facility] GLUCOSE-STAT LAB 2021-09-07 [facility] 12:42:36 [facility] HGB/HCT (H&H) - STAT LAB 2021-09-07 Darrel Hidalgo [facility] 12:42:36 [facility] POCT-ACT 2021-09-[address] [facility] 12:15:00 [facility] RRL CRITICAL LABS 2021-09-[address] [facility] (ABG,NA,K,H&H,GLUCOSE) 12:13:19 [facility] enter BLOOD GAS, ARTERIAL 2021-09-07 Ramya Colby [facility] 12:13:19 [facility] SODIUM NA-STAT LAB 2021-09-[address] [facility] 12:13:19 [facility] POTASSIUM-STAT LAB 2021-09-[address] [facility] 12:13:19 [facility] GLUCOSE-STAT LAB 2021-09-[address] [facility] 12:13:19 [facility] HGB/HCT (H&H) - STAT LAB 2021-09-[address] [facility] 12:13:19 [facility] TISSUE EXAM 2021-09-[address] [facility] 12:07:00 [facility] POCT-ACT 2021-09-[address] [facility] 11:41:00 [facility] LACTIC ACID, ARTERIAL 2021-09-[address] [facility] 11:39:09 [facility] RRL CRITICAL LABS 2021-09-[address] [facility] (ABG,NA,K,H&H,GLUCOSE) 11:39:04 [facility] enter BLOOD GAS, ARTERIAL 2021-09-[address] [facility] 11:39:04 [facility] SODIUM NA-STAT LAB 2021-09-[address] [facility] 11:39:04 [facility] POTASSIUM-STAT LAB 2021-09-[address] [facility] 11:39:04 [facility] GLUCOSE-STAT LAB 2021-09-[address] [facility] 11:39:04 [facility] HGB/HCT (H&H) - STAT LAB 2021-09-[address] [facility] 11:39:04 [facility] MISCELLANEOUS LAB ORDER 2021-09-[address] [facility] [facility] 11:29:37 [facility] RRL CRITICAL LABS 2021-09-[address] [facility] (ABG,NA,K,H&H,GLUCOSE) 11:07:40 [facility] enter BLOOD GAS, ARTERIAL 2021-09-[address] [facility] 11:07:40 [facility] SODIUM NA-STAT LAB 2021-09-[address] [facility] 11:07:40 [facility] POTASSIUM-STAT LAB 2021-09-[address] [facility] 11:07:40 [facility] GLUCOSE-STAT LAB 2021-09-[address] [facility] 11:07:40 [facility] HGB/HCT (H&H) - STAT LAB 2021-09-[address] [facility] 11:07:40 [facility] POCT-ACT 2021-09-07 Jing, Jerrell [facility] 10:57:00 [facility] LACTIC ACID, ARTERIAL 2021-09-[address] [facility] 10:44:04 [facility] POCT-ACT 2021-09-[address] [facility] 10:41:00 [facility] RRL CRITICAL LABS 2021-09-[address] [facility] (ABG,NA,K,H&H,GLUCOSE) 10:38:15 [facility] enter BLOOD GAS, ARTERIAL 2021-09-[address] [facility] 10:38:15 [facility] SODIUM NA-STAT LAB 2021-09-[address] [facility] 10:38:15 [facility] POTASSIUM-STAT LAB 2021-09-[address] [facility] 10:38:15 [facility] GLUCOSE-STAT LAB 2021-09-[address] [facility] 10:38:15 [facility] HGB/HCT (H&H) - STAT LAB 2021-09-[address] [facility] 10:38:15 [facility] ANESTHESIA ROXI 2021-09-[address] [facility] 10:08:54 [facility] POCT-ACT 2021-09-07 Jing, Jerrell [facility] 10:07:00 [facility] POCT-ACT 2021-09-07 Jing, Jerrell [facility] 09:32:00 [facility] RRL CRITICAL LABS 2021-09-[address] [facility] (ABG,NA,K,H&H,GLUCOSE) 08:35:02 [facility] enter CALCIUM, IONIZED 2021-09-[address] [facility] 08:35:02 [facility] BLOOD GAS, ARTERIAL 2021-09-[address] [facility] 08:35:02 [facility] SODIUM NA-STAT LAB 2021-09-[address] [facility] 08:35:02 [facility] POTASSIUM-STAT LAB 2021-09-[address] [facility] 08:35:02 [facility] GLUCOSE-STAT LAB 2021-09-[address] [facility] 08:35:02 [facility] HGB/HCT (H&H) - STAT LAB 2021-09-[address] [facility] 08:35:02 [facility] ROBOTIC MITRAL VALVE REPLACEMENT 2021-09-[address] [facility] 07:45:00 [facility] ROBOTIC THORACOSCOPY 2021-09-[address] [facility] (VATS),LIGATION ATRIAL APPENDAGE 07:45:00 [facility] MAZE PROCEDURE, MODIFIED 2021-09-[address] [facility] 07:45:00 [facility] ECHOCARDIOGRAM, 3D, 2021-09-[address] [facility] TRANSESOPHAGEAL 07:45:00 [facility] ECG 12-LEAD 2021-09-07 Kameron Laguna A [facility] 04:35:18 [facility] ECG 12-LEAD 2021-09-07 Unknown, Hl7 [facility] 04:35:18 [facility] HEMOGLOBIN A1C 2021-09-07 Nieves, Herve [facility] 02:59:00 [facility] LIPID PANEL 2021-09-07 Nieves, Herve [facility] 02:59:00 [facility] APTT 2021-09-07 Nieves, Herve [facility] 02:59:00 [facility] TSH 2021-09-07 Nieves, Herve [facility] 02:59:00 [facility] CBC W/PLT COUNT & AUTO 2021-09-[address] [facility] DIFFERENTIAL 02:59:00 [facility] PROTHROMBIN TIME/INR 2021-09-07 Luz Elena Kameron Bettencourt [facility] 02:59:00 [facility] BLOOD GAS, VENOUS 2021-09-07 Luz Elena Kameron Bettencourt [facility] 02:59:00 [facility] COMPREHENSIVE METABOLIC PANEL 2021-09-07 Kameron Laguna Rut [facility] 02:59:00 [facility] MAGNESIUM 2021-09-07 Kameron Laguna Rut [facility] 02:59:00 [facility] PHOSPHORUS 2021-09-[address] [facility] 02:59:00 [facility] TYPE AND SCREEN, AUTOMATED 2021-09-07 EzequielHerve [facility] 02:59:00 [facility] CBC W/PLT COUNT & AUTO 2021-09-[address] [facility] DIFFERENTIAL 02:59:00 [facility] POCT-GLUCOSE METER 2021-09-06 Jing, Jerrlel [facility] 21:09:00 [facility] APTT 2021-09-06 Luz Elena Kameron Bettencourt [facility] 17:52:00 [facility] PROTHROMBIN TIME/INR 2021-09-[address] [facility] 17:52:00 [facility] POCT-GLUCOSE METER 2021-09-06 Jing, Jerrell [facility] 17:14:00 [facility] POCT-GLUCOSE METER 2021-09-06 Jing, Jerrell [facility] 11:09:00 [facility] APTT 2021-09-06 Luz Elena Kameron Rut [facility] 11:05:00 [facility] POCT-GLUCOSE METER 2021-09-06 Jing, Jerrell [facility] 08:04:00 [facility] ECG 12-LEAD 2021-09-06 Kameron Laguna A [facility] 07:15:01 [facility] ECG 12-LEAD 2021-09-06 Unknown, Hl7 [facility] 07:15:01 [facility] ECG 12-LEAD 2021-09-06 Unknown, Hl7 [facility] 07:12:35 [facility] BLOOD GAS, VENOUS 2021-09-06 Kameron Laguna A [facility] 05:03:00 [facility] BASIC METABOLIC PANEL (7) 2021-09-06 Kameron Laguna A [facility] 05:03:00 [facility] MAGNESIUM 2021-09-06 Kameron Laguna A [facility] 05:03:00 [facility] CBC W/PLT COUNT & AUTO 2021-09-06 Jean-Claudejo, Bashar [facility] DIFFERENTIAL 05:03:00 [facility] APTT 2021-09-06 Kameron Laguna A [facility] 05:03:00 [facility] CBC W/PLT COUNT & AUTO 2021-09-06 Farjo, Bashar [facility] DIFFERENTIAL 05:03:00 [facility] APTT 2021-09-05 Jing, Jerrell [facility] 22:08:00 [facility] POCT-GLUCOSE METER 2021-09-05 Jing, Jerrell [facility] 21:45:00 [facility] ECG 12-LEAD 2021-09-05 Zully Lagunaan A [facility] 20:35:24 [facility] ECG 12-LEAD 2021-09-05 Unknown, Hl7 [facility] 20:35:24 [facility] POCT-GLUCOSE METER 2021-09-05 Jing, Jerrell [facility] 17:04:00 [facility] APTT 2021-09-05 Kameron Laguna A [facility] 16:36:00 [facility] B-TYPE NATRIURETIC FACTOR (BNP) 2021-09-[address] [facility] 16:36:00 [facility] BASIC METABOLIC PANEL (7) 2021-09-05 Kameron Laguna A [facility] 16:36:00 [facility] MAGNESIUM 2021-09-05 Kameron Laguna A [facility] 16:36:00 [facility] POCT-GLUCOSE METER 2021-09-05 Jing, Jerrell [facility] 11:28:00 [facility] POCT-GLUCOSE METER 2021-09-05 Jing, Jerrell [facility] 08:21:00 [facility] APTT 2021-09-05 Zully Lagunaan A [facility] 08:16:00 [facility] APTT 2021-09-05 Zully Lagunaan A [facility] 04:28:00 [facility] BASIC METABOLIC PANEL (7) 2021-09-[address] [facility] 04:28:00 [facility] MAGNESIUM 2021-09-[address] [facility] 04:28:00 [facility] BLOOD GAS, VENOUS 2021-09-[address] [facility] 04:28:00 [facility] VANCOMYCIN LEVEL, TROUGH 2021-09-05 Ofoegbmonica, Ifoma [facility] 04:28:00 [facility] XR CHEST 1 VIEW PORTABLE / BEDSIDE 2021-09-05 [address] [facility] 00:32:00 [facility] POCT-GLUCOSE METER 2021-09-04 Jing, Jerrell [facility] 23:57:00 [facility] APTT 2021-09-[address] [facility] 22:30:00 [facility] POCT-GLUCOSE METER 2021-09-04 Jing, Jerrell [facility] 22:29:00 [facility] HC CAROTID DOPPLER LILO 2021-09-[address] [facility] 20:37:00 [facility] BASIC METABOLIC PANEL (7) 2021-09-[address] [facility] 18:02:00 [facility] MAGNESIUM 2021-09-04 Kameron Laguna A [facility] 18:02:00 [facility] BLOOD GAS, VENOUS 2021-09-[address] [facility] 18:02:00 [facility] POCT-GLUCOSE METER 2021-09-04 Jing, Jerrell [facility] 18:02:00 [facility] CTA CHEST 2021-09-[address] [facility] 15:55:00 [facility] CTA ABDOMEN & PELVIS 2021-09-[address] [facility] 15:55:00 [facility] APTT 2021-09-04 Kameron Laguna A [facility] 15:16:00 [facility] APTT 2021-09-04 Kameron Laguna A [facility] 14:00:00 [facility] APTT 2021-09-04 Kameron Laguna A [facility] 12:58:00 [facility] POCT-GLUCOSE METER 2021-09-04 Jing, Jerrell [facility] 12:21:00 [facility] TRANSESOPHAGEAL ECHO 2021-09-04 Kameron Laguna A [facility] 10:56:06 [facility] POCT-GLUCOSE METER 2021-09-04 Jing, Jerrell [facility] 09:29:00 [facility] CBC W/PLT COUNT & AUTO 2021-09-04 Ali, Hiba Cooper [facility] DIFFERENTIAL 04:47:00 [facility] BASIC METABOLIC PANEL (7) 2021-09-04 Zully Lagunaan A [facility] 04:47:00 [facility] MAGNESIUM 2021-09-04 Z[address]an [address] [facility] 04:47:00 [facility] APTT 2021-09-04 Kameron Laguna A [facility] 04:47:00 [facility] CBC W/PLT COUNT & AUTO 2021-09-04 Ali, Hiba Cooper [facility] DIFFERENTIAL 04:47:00 [facility] BLOOD GAS, VENOUS 2021-09-04 Kameron Laguna A [facility] 04:36:00 [facility] XR CHEST 1 VIEW PORTABLE / BEDSIDE 2021-09-[address] [facility] 00:40:00 [facility] POCT-GLUCOSE METER 2021-09-03 Jing, Jerrell [facility] 22:04:00 [facility] POCT-GLUCOSE METER 2021-09-03 Jing, Jerrell [facility] 16:27:00 [facility] PROCALCITONIN 2021-09-03 Kameron Laguna A [facility] 16:04:00 [facility] BASIC METABOLIC PANEL (7) 2021-09-03 Zully Lagunaan A [facility] 16:04:00 [facility] MAGNESIUM 2021-09-03 Kameron Laguna A [facility] 16:04:00 [facility] BLOOD GAS, VENOUS 2021-09-03 Zully Lagunaan A [facility] 16:04:00 [facility] ECG 12-LEAD 2021-09-03 Lernor, Herve [facility] 15:00:16 [facility] ECG 12-LEAD 2021-09-03 Unknown, Hl7 [facility] 15:00:16 [facility] ECG 12-LEAD 2021-09-03 Unknown, Hl7 [facility] 14:59:48 [facility] 2D ECHO W/ DOPPLER (CW/PW/COLOR) 2021-09-[address] [facility] 09:48:42 [facility] CONT WAVE PULSED DOPPLER 2021-09-03 Luz Elena Kameron Bettencourt [facility] 09:44:53 [facility] COLOR-FLOW MAPPING 2021-09-03 Zully Lagunamalena Bettencourt [facility] 09:44:52 [facility] ECG 12-LEAD 2021-09-03 Unknown, Hl7 [facility] 07:30:39 [facility] ECG 12-LEAD 2021-09-03 Unknown, Hl7 [facility] 07:30:39 [facility] ECG 12-LEAD 2021-09-03 Unknown, Hl7 [facility] 07:30:02 [facility] ECG 12-LEAD 2021-09-03 Unknown, Hl7 [facility] 07:30:02 [facility] BLOOD CULTURE 2021-09-[address] [facility] 06:56:00 [facility] CBC W/PLT COUNT & AUTO 2021-09-03 Ali, Kevona Cooper [facility] DIFFERENTIAL 04:31:00 [facility] BASIC METABOLIC PANEL (7) 2021-09-03 Ali, Hiba Cooper [facility] 04:31:00 [facility] B-TYPE NATRIURETIC FACTOR (BNP) 2021-09-[address] [facility] 04:31:00 [facility] BLOOD GAS, VENOUS 2021-09-[address] [facility] 04:31:00 [facility] HIGH SENSITIVITY TROPONIN I 2021-09-[address] [facility] 04:31:00 [facility] LACTIC ACID, VENOUS 2021-09-03 Falohun, Adewunmi [facility] 04:31:00 [facility] MAGNESIUM 2021-09-[address] [facility] 04:31:00 [facility] CBC W/PLT COUNT & AUTO 2021-09-03 Ali, Hiba Cooper [facility] DIFFERENTIAL 04:31:00 [facility] XR CHEST 1 VIEW PORTABLE / BEDSIDE 2021-09-03 Lala Thakur [address] [facility] 02:05:00 [facility] HIGH SENSITIVITY TROPONIN I 2021-09-[address] [facility] 22:33:00 [facility] LACTIC ACID, VENOUS 2021-09-[address] [facility] 22:33:00 [facility] LACTIC ACID, VENOUS 2021-09-02 Nadimpalli, [facility] 19:28:00 [facility] BASIC METABOLIC PANEL (7) 2021-09-02 Nadimpalli, [facility] 19:28:00 [facility] B-TYPE NATRIURETIC FACTOR (BNP) 2021-09-02 Ali, Hiba Cooper [facility] 17:17:00 [facility] PROCALCITONIN 2021-09-02 Ali, Hiba Cooper [facility] 17:17:00 [facility] HIGH SENSITIVITY TROPONIN I 2021-09-02 Ali, Hiba Cooper [facility] 17:17:00 [facility] LACTIC ACID, ARTERIAL 2021-09-02 Ali, H[facility] 17:17:00 [facility] POCT-BLOOD GASES, ARTERIAL 2021-09-02 Ali, Hiba Cooper [facility] 17:15:00 [facility] POCT-SODIUM 2021-09-02 Ali, Hiba Cooper [facility] 17:15:00 [facility] POCT-POTASSIUM 2021-09-02 Ali, Hiba Cooper [facility] 17:15:00 [facility] POCT-HEMOGLOBIN 2021-09-02 Ali, Hiba Cooper [facility] 17:15:00 [facility] POCT-HEMATOCRIT 2021-09-02 Ali, Hiba Cooper [facility] 17:15:00 [facility] POCT-GLUCOSE 2021-09-02 Ali, Hiba Cooper [facility] 17:15:00 [facility] XR CHEST 1 VIEW PORTABLE / BEDSIDE 2021-09-02 Ali, Hiba Isaias ir [facility] 16:58:00 [facility] ECG 12-LEAD 2021-09-02 Unknown, Hl7 [facility] 16:50:07 [facility] ECG 12-LEAD 2021-09-[address] [facility] 16:50:07 [facility] ECG 12-LEAD 2021-09-02 Unknown, Hl7 [facility] 16:49:46 [facility] ECG 12-LEAD 2021-09-02 Unknown, Hl7 [facility] 16:49:46 [facility] ECG 12-LEAD 2021-09-02 Unknown, Hl7 [facility] 16:48:34 [facility] ECG 12-LEAD 2021-09-02 Unknown, Hl7 [facility] 16:48:19 [facility] CBC W/PLT COUNT & AUTO 2021-09-02 Ali, [facility] DIFFERENTIAL 05:14:00 [facility] BASIC METABOLIC PANEL (7) 2021-09-02 Ali, Hiba Cooper [facility] 05:14:00 [facility] CBC W/PLT COUNT & AUTO 2021-09-02 Ali, H[facility] DIFFERENTIAL 05:14:[address] [facility] [address] CHEST WITH IV CONTRAST 2021-09-01 Ali, Hiba Cooper [facility] 23:45:00 [facility] FERRITIN 2021-09-01 Ali, Hiba Cooper [facility] 17:14:00 [facility] IRON, TIBC, % SAT. (WITHOUT 2021-09-01 Ali, Hiba Cooper [facility] FERRITIN) 17:14:00 [facility] 2D ECHO W/ DOPPLER (CW/PW/COLOR) 2021-09-[address] [facility] 13:34:34 [facility] [place] ESOPH SWALLOW FUNCT WITH CINE 2021-09-[address] [facility] VIDEO 11:43:00 [facility] REPORT OF PROCEDURE - ENDOSCOPY 2021-09-[address] [facility] URL 08:31:23 [facility] ESOPHAGOGASTRODUODENOSCOPY 2021-09-[address] [facility] 07:49:00 [facility] CBC W/PLT COUNT & AUTO 2021-09-[address] [facility] DIFFERENTIAL 05:48:00 [facility] BASIC METABOLIC PANEL (7) 2021-09-[address] [facility] 05:48:00 [facility] HEPATIC FUNCTION PANEL 2021-09-[address] [facility] 05:48:00 [facility] PROTHROMBIN TIME/INR 2021-09-[address] [facility] 05:48:00 [facility] MAGNESIUM 2021-09-[address] [facility] 05:48:00 [facility] PHOSPHORUS 2021-09-[address] [facility] 05:48:00 [facility] TSH/FREE T4 IF INDICATED 2021-09-[address] [facility] 05:48:00 [facility] CBC W/PLT COUNT & AUTO 2021-09-[address] [facility] DIFFERENTIAL 05:48:00 [facility] ECG 12-LEAD 2021-08-31 Unknown, Hl7 [facility] 16:26:58 [facility] ECG 12-LEAD 2021-08-31 Unknown, Hl7 [facility] 16:26:58 [facility] SARS-COV2/RT-PCR ([facility] REF LABS) 2021-08-31 [address] Downing [address] [facility] 14:36:00 [facility] LACTIC ACID, VENOUS 2021-08-[address] [facility] 12:48:00 [facility] BASIC METABOLIC PANEL (7) 2021-08-[address] [facility] 12:46:00 [facility] CBC W/PLT COUNT & AUTO 2021-08-[address] [facility] DIFFERENTIAL 12:46:00 [facility] HIGH SENSITIVITY TROPONIN I 2021-08-31 Amilcar, Patricia [facility] 12:46:00 [facility] PROTHROMBIN TIME/INR 2021-08-[address] [facility] 12:46:00 [facility] APTT 2021-08-31 Amilcar, Patricia [facility] 12:46:00 [facility] CBC W/PLT COUNT & AUTO 2021-08-[address] [facility] DIFFERENTIAL 12:46:00 [facility] EKG-SCANNED 2021-08-31 Provider, Default [facility] 00:00:00 [facility] ELECTROCARDIOGRAM COMPLETE 2021-07-18 Jordan Jakobbernardo [facility] 21:05:00 [place] ESOPHAGUS 2021-07-[address] [facility] 10:07:00 [facility] BASIC METABOLIC PANEL (7) 2021-07-[address] [facility] 04:05:00 [facility] SARS-COV2/RT-PCR ([facility] REF [facility]) 2021-07-03 [address]ad [address] n [facility] 16:14:00 [facility] D-DIMER 2021-07-03 Jones, Thuyen [facility] 16:14:00 [facility] BLOOD GAS, VENOUS 2021-07-[address] [facility] 16:14:00 [facility] XR CHEST 2 VIEWS 2021-07-[address] [facility] 13:42:00 [facility] B-TYPE NATRIURETIC FACTOR (BNP) 2021-07-03 Jones, Thuyen [facility] 13:28:00 [facility] COMPREHENSIVE METABOLIC PANEL 2021-07-[address] [facility] 13:28:00 [facility] CBC W/PLT COUNT & AUTO 2021-07-03 Jones, Kristianuyen [facility] DIFFERENTIAL 13:28:00 [facility] LIPASE 2021-07-03 Jones, Thuyen [facility] 13:28:00 [facility] HIGH SENSITIVITY TROPONIN I 2021-07-03 Jones, Thuyen [facility] 13:28:00 [facility] CBC W/PLT COUNT & AUTO 2021-07-03 Jones, [facility] DIFFERENTIAL 13:28:00 [facility] ECG 12-LEAD 2021-07-03 Jones, Thuyen [facility] 13:11:56 [facility] ECG 12-LEAD 2021-07-03 Unknown, Hl7 [facility] 13:11:56 [facility] EKG-SCANNED 2021-07-03 Provider, Default [facility] 00:00:00 [facility] HEMOGLOBIN AND HEMATOCRIT 2021-05-26 Gadicheryou, Noa [facility] 04:39:00 [facility] PREPARE LEUKO-REDUCED RBC 2021-05-25 Rajha, Suellen [facility] 23:54:00 [facility] HEMOGLOBIN AND HEMATOCRIT 2021-05-25 Gadicherla, Noa [facility] 18:30:00 [facility] HEMOGLOBIN AND HEMATOCRIT 2021-05-25 Gadicherla, Noa [facility] 10:43:00 [facility] HEMOGLOBIN AND HEMATOCRIT 2021-05-25 Gadicherla, Noa [facility] 04:19:00 [facility] HEMOGLOBIN AND HEMATOCRIT 2021-05-[address] [facility] 16:22:00 [facility] HEMOGLOBIN AND HEMATOCRIT 2021-05-[address] [facility] 08:03:00 [facility] BASIC METABOLIC PANEL (7) 2021-05-[address] [facility] 08:03:00 [facility] TRANSFUSE LEUKO-REDUCED RED BLOOD 2021-05-24 Obdulia, Suellen [facility] CELLS 01:55:00 [facility] SARS-COV2/RT-PCR ([facility] REF [facility]) 2021-05-23 Obdulia, Suellen [facility] 19:01:00 [facility] CBC W/PLT COUNT & AUTO 2021-05-23 Obdulia, Suellen [facility] DIFFERENTIAL 16:24:00 [facility] PT/APTT 2021-05-23 Obdulia, Suellen [facility] 16:24:00 [facility] TYPE AND SCREEN, AUTOMATED 2021-05-23 Obdulia, Suellen [facility] 16:24:00 [facility] CBC W/PLT COUNT & AUTO 2021-05-23 Rajha, Suellen [facility] DIFFERENTIAL 16:24:00 [facility] COMPREHENSIVE METABOLIC PANEL 2021-05-23 Rajha, Suellen [facility] 16:23:00 [facility] LIPASE 2021-05-23 Mikyha, Suellen [facility] 16:23:00 [facility] ECG 12-LEAD 2021-05-23 Unknown, Hl7 [facility] 15:13:04 [facility] EKG-SCANNED 2021-05-23 Provider, Brigid [facility] 00:00:00 [facility] CBC W/PLT COUNT & AUTO 2021-05-[address] [facility] DIFFERENTIAL 04:10:00 [facility] BASIC METABOLIC PANEL (7) 2021-05-20 Alao, Titilola [facility] 04:10:00 [facility] CBC W/PLT COUNT & AUTO 2021-05-20 Alao, Titilola [facility] DIFFERENTIAL 04:10:00 [facility] CBC (HEMOGRAM ONLY) 2021-05-[address] [facility] 03:43:00 [facility] BASIC METABOLIC PANEL (7) 2021-05-17 Jacky Raegan [facility] 03:43:00 [facility] HEMOGLOBIN AND HEMATOCRIT 2021-05-16 Raegan Rico [facility] 20:11:00 [facility] REPORT OF PROCEDURE - ENDOSCOPY 2021-05-[address] [facility] URL 11:57:57 [facility] ESOPHAGOGASTRODUODENOSCOPY 2021-05-16 Jimmy Bowers [facility] 11:15:00 [facility] CBC W/PLT COUNT & AUTO 2021-05-[address] [facility] DIFFERENTIAL 04:48:00 [facility] BASIC METABOLIC PANEL (7) 2021-05-[address] [facility] 04:48:00 [facility] CBC W/PLT COUNT & AUTO 2021-05-[address] [facility] DIFFERENTIAL 04:48:00 [facility] HEMOGLOBIN AND HEMATOCRIT 2021-05-[address] [facility] 23:52:00 [facility] SARS-COV2/RT-PCR ([facility] REF [facility]) 2021-05-[address] [facility] 16:46:00 [facility] ECG 12-LEAD 2021-05-15 Unknown, Hl7 [facility] 15:26:10 [facility] CBC W/PLT COUNT & AUTO 2021-05-[address] [facility] DIFFERENTIAL 15:00:00 [facility] COMPREHENSIVE METABOLIC PANEL 2021-05-[address] [facility] 15:00:00 [facility] MAGNESIUM 2021-05-[address] [facility] 15:00:00 [facility] PHOSPHORUS 2021-05-[address] [facility] 15:00:00 [facility] HIGH SENSITIVITY TROPONIN I 2021-05-[address] [facility] 15:00:00 [facility] TYPE AND SCREEN, AUTOMATED 2021-05-15 TarasantoPattieemily [facility] 15:00:00 [facility] CBC W/PLT COUNT & AUTO 2021-05-[address] [facility] DIFFERENTIAL 15:00:00 [facility] XR CHEST 1 VIEW PORTABLE / BEDSIDE 2021-05-[address] [facility] 13:52:00 [facility] EKG-SCANNED 2021-05-15 Provider, Default [facility] 00:00:00 [facility] EGD (ENDO) 2019-04-22 [facility] 12:55:59 Willy Duke [facility] DAY SURGERY - ADC 2019-04-22 [facility] 05:01:00 Unassigned, No [facility] Plan of Care Planned Activity Planned Date Details Comments Source Future Scheduled 2022-04-19 INFLUENZA VACCINE (#1) [facility] 00:00:00 [code = INFLUENZA Medical Ce nter VACCINE (#1)] Future Scheduled 2021-12-07 ECHO, COMPLETE [code = Expected: [facility] Test 00:00:00 07015] 12/07/2021, of Medicine Expires: 04/11/2022 Future Scheduled 2021-10-12 ELECTROCARDIOGRAM [facility] Test 08:58:20 COMPLETE [code = 09229] of M edicine Future Scheduled 2021-10-12 TETANUS SHOT (ADULT) [facility] Test 08:34:44 [code = TETANUS SHOT of Medi cine (ADULT)] Future Scheduled 2021-10-12 BMI FOLLOW UP PLAN [code [facility] Test 08:34:44 = BMI FOLLOW UP PLAN] of Med icine Future Scheduled 2021-10-12 Hepatitis C screening [employer] Test 08:34:44 (procedure) [code = of Medic ine 296370066] Future Scheduled 2021-10-12 ZOSTER VACCINE (1 of 2) [facility] Test 08:34:44 [code = ZOSTER VACCINE of Me dicine (1 of 2)] Future Scheduled 2021-10-12 FALL SCREEN [code = FALL [facility] Test 08:34:44 SCREEN] of Medicine Future Scheduled 2021-10-12 Pneumococcal 65+ (1 of 1 [facility] Test 08:34:44 - PPSV23) [code = of Medicin e Pneumococcal 65+ (1 of 1 - PPSV23)] Future Scheduled 2021-10-12 FLU VACCINE > 6 MONTHS [facility] Test 08:34:44 [code = FLU VACCINE > 6 of M edicine MONTHS] Future Scheduled 2021-10-12 MEDICARE IPPE (WELCOME B [facility] Test 08:34:44 TO MEDICARE) [code = of Medi cine MEDICARE IPPE (WELCOME TO MEDICARE)] Future Scheduled 2021-08-20 MEDICARE ANNUAL WELLNESS [facility] Test 00:00:00 (YEAR 2 or FIRST YEAR if [facility] no IPPE) [code = MEDICARE ANNUAL WELLNESS (YEAR 2 or FIRST YEAR if no IPPE)] Future Scheduled 2021-08-08 COVID-19 VACCINE (2 - [facility] 00:00:00 Pfizer series) [code = Medic sc Center COVID-19 VACCINE (2 - Pfizer series)] Future Scheduled 2021-07-20 Pneumococcal 65+ (1 of 2 [facility] Test 15:04:42 - PPSV23) [code = of Medicin e Pneumococcal 65+ (1 of 2 - PPSV23)] Future Scheduled 2021-07-20 TETANUS SHOT (ADULT) [facility] Test 15:04:42 [code = TETANUS SHOT of Medi cine (ADULT)] Future Scheduled 2021-07-20 BMI FOLLOW UP PLAN [code [facility] Test 15:04:42 = BMI FOLLOW UP PLAN] of Med icine Future Scheduled 2021-07-20 Hepatitis C screening [employer] Test 15:04:42 (procedure) [code = of Medic ine [id number]] Future Scheduled 2021-07-20 ZOSTER VACCINE (1 of 2) [facility] Test 15:04:42 [code = ZOSTER VACCINE of Me dicine (1 of 2)] Future Scheduled 2021-07-20 FALL SCREEN [code = FALL [facility] Test 15:04:42 SCREEN] of Medicine Future Scheduled 2021-07-20 MEDICARE IPPE (WELCOME B [facility] Test 15:04:42 TO MEDICARE) [code = of TopOPPS MEDICARE IPPE (WELCOME TO MEDICARE)] Future Scheduled 2021-07-20 FLU VACCINE > 6 MONTHS B [facility] Test 15:04:42 [code = FLU VACCINE > 6 of M edicine MONTHS] Future Scheduled 2021-07-18 ELECTROCARDIOGRAM [facility] Test 15:05:03 COMPLETE [code = 30380] of M edicine Future Scheduled 2021-06-22 CBC W/AUTO DIFF WITH Ordered: [facility] Test 09:11:41 PLATELETS [code = 06/22/2021 of Medicin e 14664-8] Future Scheduled 2021-06-22 FERRITIN [code = Ordered: [facility] Test 09:11:41 41713-8] 06/22/2021 of Medicine Future Scheduled 2021-06-22 IRON+TIBC+%SAT [code = Ordered: B [facility] Test 09:11:41 NOCPT] 06/22/2021 of Medicine Future Scheduled 2021-06-22 TETANUS SHOT (ADULT) [facility] Test 08:19:01 [code = TETANUS SHOT of Medi cine (ADULT)] Future Scheduled 2021-06-22 Hepatitis C screening [facility] Test 08:19:01 (procedure) [code = of Medic ine [id number]] Future Scheduled 2021-06-22 ZOSTER VACCINE (1 of 2) [facility] Test 08:19:01 [code = ZOSTER VACCINE of Me dicine (1 of 2)] Future Scheduled 2021-06-22 FALL SCREEN [code = FALL [facility] Test 08:19:01 SCREEN] of Medicine Future Scheduled 2021-06-22 PNEUMOVAX >=65 (PPSV23) [facility] Test 08:19:01 [code = PNEUMOVAX >=65 of Me dicine (PPSV23)] Future Scheduled 2021-06-22 MEDICARE IPPE (WELCOME B [facility] Test 08:19:01 TO MEDICARE) [code = of Medi [facility] MEDICARE IPPE (WELCOME TO MEDICARE)] Future Scheduled 2021-06-22 FLU VACCINE > 6 MONTHS B [facility] Test 08:19:01 [code = FLU VACCINE > 6 of M edicine MONTHS] Future Scheduled 1993 SHINGLES VACCINES ([address] [facility] Test 00:00:00 2) [code = SHINGLES Medical Center VACCINES (1 of 2)] Future Scheduled 1962 DTAP/TDAP/TD VACCINES ([address] [facility] Test 00:00:00 - Tdap) [code = Medical Cent er DTAP/TDAP/TD VACCINES (1 - Tdap)] Future Scheduled 1961 HEPATITIS C [facility]CRE[facility] 00:00:00 [code = HEPATITIS C Medical Center SCREENING] Encounters Start End Encounter Admission Attending Care Care Encounter Source Date/Time Date/Time Type Type Clinicians Facility Department ID 2021-09-20 Outpatient 3 VICKY BELTRAN CRD [id number] [facility] 15:05:33 [facility] 2021-09-15 Outpatient 3 VICKY BELTRAN CRD [id number] [facility] 14:41:07 AL[facility] [place] [facility] 2021-09-14 Outpatient 3 [id number] ENCPL CRD [id number] [facility] 13:28:13 120[facility] [place] [facility] 2021-09-14 Outpatient 3 [id number] ENC[facility] REF [id number] [facility] 13:27:27 [facility] [place] [facility] 2021-09-14 Outpatient 3 [id number] ENC[facility] REF [id number] [facility] 13:27:13 [facility] [place] 2021-05-28 Inpatient ER ELLA, [facility] [id number] [facility] 12:00:47 FANG-STIVEN 2021-11-21 2021-11-21 Anesthesia David [facility] [id number] 23:59:59 23:59:59 [facility] 2021-11-06 2021-11-06 Telephone Elle [facility] [id number] 00:00[facility]00 00:00:00 [facility] 2021-10-12 2021-10-12 Office GREG CHRISTIAN [id number] [facility] 08:21:22 11:05:40 Visit KARON AMBULATOR 350.1.13.21 College Y 0.2.7.2.686 of [id number] Medi eddie 375 e 2021-10-04 2021-10-04 Office Mack, [facility] [id number] 09:00:00 09:30:00 Visit [facility] 2021-10-04 2021-10-04 Outpatient ARCELIA [facility] [id number] [facility] 08:41:28 08:41:28 [facility] 2021-08-31 2021-09-19 Inpatient ER JUAN CARLOS [facility] Surgery [id number] [facility] 12:30:00 17:01:00 [facility] 2021-08-31 2021-09-19 [facility] Patricia Downing [facility] [id number] [facility] 12:30:00 17:01:00 Encounter Michael Cristina [facility], [facility], Raz Saldivar, Bartolo [facility] 2021-09-07 2021-09-07 Anesthesia Rocky [facility] [id number] 07:58:00 15:09:[address] [facility] 2021-09-07 2021-09-07 Surgery Ramya [facility] [id number] 08:00[facility]00 11:45[facility] 2021-09-03 2021-09-03 Outpatient NAVYA CAMARILLO [id number] Navya 00:00:00 00:00:00 ELLIS grissom 2021-09-02 2021-09-02 Outpatient BC BC [id number] [facility] 00:00:00 23:59:00 Lynnette e 2021-09-01 2021-09-01 Surgery Mari aTeresa [facility] [id number] 08:00:00 09:00:00 [facility] 2021-09-01 2021-09-01 Anesthesia Timmy Juan [facility] [id number] 08:01:00 08:36:00 Event Larry Holbrook [facility] 2021-08-31 2021-08-31 Outpatient BCM [facility] [id number] [facility] 12:30:00 23:59:00 Colleg e of Medicin e 2021-08-31 2021-08-31 Orders [facility] [id number] 00:00:00 00:00:00 Only [facility] 2021-08-31 2021-08-31 Travel [facility] [id number] [facility] 00:00:00 00:00:00 [facility] 2021-07-28 2021-08-04 Inpatient 3 RUBY, ENCPL CRD [id number] [facility] 12:00:00 11:50:00 AL[facility] [facility] 2021-07-18 2021-07-18 Outpatient BCM [facility] [id number] [facility] 15:48:01 16:26:04 Colleg e of Medicin e 2021-07-18 2021-07-18 Office GREG CHRISTIAN [id number] [facility] 14:30:22 16:15:56 Visit MAHBOOB AMBULATOR 350.1.13.21 College Y 0.2.7.2.686 of [id number] [facility] eddie 375 e 2021-07-03 2021-07-04 Outpatient ER HASEEB, DARLENE [facility] Emergency [id number] [facility] 12:24:00 14:27:00 2021-07-03 2021-07-04 Emergency Tacos Jones Cristopher [facility] [id number] 12:24:00 14:27:00 Haseeb, [facility]arl[facility] 2021-07-03 2021-07-03 [facility] [id number] [facility] 00:00:00 23:59:00 Colleg e [facility] Medicin e 2021-07-03 2021-07-03 Orders [facility] [id number] 00:00:00 00:00:00 Only [facility] 2021-07-03 2021-07-03 Travel [facility] [id number] [facility] 00:00:00 00:00:00 [facility] 2021-06-22 2021-06-22 Office DANIELREXErendira [id number] [facility] 08:13:37 11:39:39 Visit RCIK AMBULATOR 350.1.13.21 College Y 0.2.7.2.686 [facility] [id number] Medi eddie 325 e 2021-05-23 2021-05-26 Inpatient ER DWIGHT [facility] Emergency [id number] [facility] 15:12:00 15:03:00 NOA 2021-05-23 2021-05-26 [facility] [id number] 15:12:00 15:03:00 Encounter Noa Ramirez [facility] 2021-05-23 2021-05-23 Outpatient [facility] [id number] [facility] 00:00:00 23:59:00 Colleg e [facility] Medicin e 2021-05-23 2021-05-23 Travel [facility] [id number] [facility] 00:00:00 00:00:00 [facility] 2021-05-20 2021-05-20 Emergency [facility] [id number] 06:07:00 06:08:00 [facility] 2021-05-20 2021-05-20 Emergency ER [facility] Emergency [id number] [facility] 01:57:00 01:57:00 2021-05-20 2021-05-20 Travel [facility] [id number] [facility] 00:00:00 00:00:00 [facility] 2021-05-15 2021-05-17 Emergency [facility] [id number] [facility] 12:10:00 12:56:00 Bar Toledo, Yashash D [facility] 2021-05-16 2021-05-16 Anesthesia Dillon Tenorio [facility] [id number] 11:24:00 12:17:00 Event Joyce Boss [facility] 2021-05-16 2021-05-16 Surgery Robinson [facility] [id number] 11:00:00 12:00:00 Jimmy [facility] 2021-05-15 2021-05-15 Outpatient BCM [facility] [id number] [facility] 00:00:00 23:59:00 Colleg [facility] Medicin e 2021-05-15 2021-05-15 Emergency ER [facility] Emergency [id number] [facility] 12:00:00 12:00:00 2021-05-15 2021-05-15 Travel [facility] [id number] [facility] 00:00:00 00:00:00 [facility] 2021-04-29 2021-04-29 Outpatient BCM BCM [id number] [facility] 00:00:00 23:59:00 [facility] 2021-04-28 2021-04-28 Outpatient BCM BCM [id number] [facility] 12:32:00 23:59:00 Colleg [facility] Medicin e 2019-04-22 2019-04-22 [facility] [id number] [facility] 06:15:00 08:56:00 Encounter eKaty 350.1.13.10 ity [id number] [address] [place] 2019-04-22 2019-04-22 [facility] 1.2.840.114 [id number] 06:15:00 08:56:00 Encounter eKaty 350.1.13.10 [place] 4.2.7.2.686 Surgical [id number] [place] [id number] 2019-04-22 2019-04-22 Anesthesia Rocio, [facility] [id number] Univers 07:54:00 08:13:00 Jaden Nir 350.1.13.10 i ty [place] [id number] [facility] 020 Branch 2019-04-22 2019-04-22 Anesthesia Rocio, [facility] [id number] 07:54:00 08:13:00 Jaden Trejoton 350.1.13.10 [place] 4.2.7.2.686 Surgical [id number] [place] 020 2019-04-22 2019-04-22 Orders Doctor MURILOL [id number] [id number] Univers 00:00:00 00:00:00 Only Unassigned, ANA MARIA 350.1.13.10 [facility]y [facility] [facility] 4.2.7.2.686 Tomas as [id number] [facility] 009 Branch 2019-04-22 2019-04-22 Orders Doctor MURILLO [id number] [id number] 00:00:00 00:00:00 Only Unassigned, ANA MARIA 350.1.13.10 [facility] 4.2.7.2.686 [phone] [id number] Results Test Description Test Time Test [...] NOT 1092) ACCURATE CRE ATININE CLEARANCE IN CT EDICTING GLOMERULAR FILT RATION RATE. ESTIMATED GFR IS NOT APPLICABLE FOR DIALYSIS PATIENTS. Telecommunications Technician ID - KEARA WOperator ID - KAYLEEN [id number] 04:56:54 Test Item Value Reference Range Interpretation Comments PHOSPHORUS (BEAKER) (test code = 4.1 mg/dL 2.3-4.7 604) Telecommunications Technician ID - KEARA [id number] 04:56:53 Test Item Value Reference Range Interpretation Comments MAGNESIUM (BEAKER) (test code = 2.1 mg/dL 1.6-2.6 627) Telecommunications Technician ID - KEARA WCALCIUM, [id number] 04:30:35 Test Item Value Reference Range Interpretation Comments CALCIUM IONIZED (BEAKER) (test 1.13 mmol/L 1.12-1.27 code = 698) PH, BLOOD (BEAKER) (test code = 7.47 1810) PROTHROMBIN TIME/[id number] 04:04:47 Test Item Value Reference Range Interpretation Comments PROTIME (BEAKER) 27.1 seconds 11.9-14.2 H (test code = 759) INR (BEAKER) (test 2.54 See_Comment [Automat ed message] code = 370) The system Mocapay generated this result transmitted ref erence range: <=5.90. The reference range was not used to int erpret this result as normal/abnormal . RECOMMENDED COUMADIN/WARFARIN INR THERAPY RANGESSTANDARD DOSE: 2.0 - 3.0 Includes: PROPHYLAXIS for venous thrombosis, systemic embolization; TREATMENT for venous thrombosis and/or pulmonary embolus.HIGH RISK: Target INR is 2.5-3.5 for patients with mechanical heart valves.CBC W/PLT COUNT & AUTO [id number] 03:57:43 Test Item Value Reference Range Interpretation [...] (BEAKER) (test code = 2801) COMPREHENSIVE METABOLIC [id number] 11:28:15 Test Item Value Reference Range Interpretation [...] S NOT APPLICABLE FOR DIALYSIS PATIEN TS. Telecommunications Technician ID - PIAYA LRAD, CHEST, 1 VIEW, NON [id number] 07:44:00Reason for exam:->S/p Ct SurgeryShould this be performed at the bedside?->Yes [facility] 1945 Sex: MFINAL REPORT RAD, CHEST, 1 VIEW, NON DEPT INDICATION: S/p Ct Surgery COMPARISON:Prior day's exam FINDINGS: Portable frontal view of the chest. IMPRESSION: Support Lines: Overlying leads. Lungs and pleura: Bibasilar atelectasis and basilar opacities, unchanged. No significant pneumothorax. Heart and mediastinum: Stable contours. Additional findings: None. Signed: Gaby Cordero Verified Date/Time: 09/18/2021 07:44:52 Reading Location: [facility] Radiology Reading Room PROTHROMBIN TIME/[id number] 04:28:26 Test Item Value Reference Range Interpretation Comments PROTIME (BEAKER) 24.0 seconds 11.9-14.2 H (test code = 759) INR (BEAKER) (test 2.18 See_Comment [Automat ed message] code = 370) The system Mocapay generated this result transmitted ref erence range: <=5.90. The reference range was not used to int erpret this result as normal/abnormal . RECOMMENDED COUMADIN/WARFARIN INR THERAPY RANGESSTANDARD DOSE: 2.0 - 3.0 Includes: PROPHYLAXIS for venous thrombosis, systemic embolization; TREATMENT for venous thrombosis and/or pulmonary embolus.HIGH RISK: Target INR is 2.5-3.5 for patients with mechanical heart valves.[id number] 04:17:02 Test Item Value Reference Range Interpretation Comments MAGNESIUM (BEAKER) (test code = 2.0 mg/dL 1.6-2.6 627) Telecommunications Technician ID - [id number] 04:17:02 Test Item Value Reference Range Interpretation Comments PHOSPHORUS (BEAKER) (test code = 3.6 mg/dL 2.3-4.7 604) Telecommunications Technician ID - DBBASIC METABOLIC [id number] 04:17:01 Test Item Value Reference Range Interpretation [...] S NOT APPLICABLE FOR DIALYSIS PATIEN TS. Telecommunications Technician ID - DBCALCIUM, [id number] 03:53:15 Test Item Value Reference Range Interpretation Comments CALCIUM IONIZED (BEAKER) (test 1.13 mmol/L 1.12-1.27 code = 698) PH, BLOOD (BEAKER) (test code = 7.47 1810) CBC W/PLT COUNT & AUTO [id number] 03:52:23 Test Item Value Reference Range Interpretation [...] 0-1 PERCENT (BEAKER) (test code = 2801) POC-Glucose [id number] 17:37:37 Test Item Value Reference Range Interpretation Comments POC-Glucose Meter (test 160 mg/dL 70-110 H : TE STED AT [facility] code = 1538) [address] [facility], 770 30: Telecommunications Technician/Techni bart ID = [id number] for Parrish Rowe Lab Interpretation (test Abnormal code = 49992-8) [facility] [id number] 17:37:37 Test Item Value Reference Range Interpretation Comments POC-GLUCOSE METER 160 mg/dL 70-110 H : TESTED A T [facility] 6720 (BEAKER) (test code = [facility], 1538) [address]: Telecommunications Technician/Techni bart ID = [id number] for Sammie Mercado POCT-GLUCOSE [id number] 12:40:04 Test Item Value Reference Range Interpretation Comments POC-GLUCOSE METER 126 mg/dL 70-110 H : TESTED A T [facility] 6720 (BEAKER) (test code = [place], 1538) [address]: Telecommunications Technician/Techni bart ID = [id number] for Sammie Mercado [id number] 08:29:45 Test Item Value Reference Range Interpretation Comments PHOSPHORUS (BEAKER) (test code = 4.0 mg/dL 2.3-4.7 604) Telecommunications Technician ID - [id number] 08:29:44 Test Item Value Reference Range Interpretation Comments MAGNESIUM (BEAKER) (test code = 2.1 mg/dL 1.6-2.6 627) Telecommunications Technician ID - DBPOCT-GLUCOSE [id number] 08:09:33 Test Item Value Reference Range Interpretation Comments POC-GLUCOSE METER 91 mg/dL 70-110 : TESTED A T [facility] 6720 (BEAKER) (test code = [facility] [place], 1538) [address]: Telecommunications Technician/Techni bart ID = [id number] for Sammie Lawson CBC W/PLT COUNT & AUTO [id number] 06:42:04 Test Item Value Reference Range Interpretation [...] PERCENT (BEAKER) (test code = 2801) PROTHROMBIN TIME/[id number] 06:23:57 Test Item Value Reference Range Interpretation Comments PROTIME (BEAKER) 23.1 seconds 11.9-14.2 H (test code = 759) INR (BEAKER) (test 2.08 See_Comment [Automat ed message] code = 370) The system Mocapay generated this result transmitted ref erence range: <=5.90. The reference range was not used to int erpret this result as normal/abnormal . RECOMMENDED COUMADIN/WARFARIN INR THERAPY RANGESSTANDARD DOSE: 2.0 - 3.0 Includes: PROPHYLAXIS for venous thrombosis, systemic embolization; TREATMENT for venous thrombosis and/or pulmonary embolus.HIGH RISK: Target INR is 2.5-3.5 for patients with mechanical heart valves.CALCIUM, [id number] 05:53:20 Test Item Value Reference Range Interpretation Comments CALCIUM IONIZED (BEAKER) (test 1.13 mmol/L 1.12-1.27 code = 698) PH, BLOOD (BEAKER) (test code = 7.48 1810) RAD, CHEST, 1 VIEW, NON [id number] 05:22:00Reason for exam:->S/p Ct SurgeryShould this be performed at the bedside?->Yes [facility] 1945 Sex: MFINAL REPORT RAD, CHEST, 1 VIEW, NON DEPT INDICATION: S/p Ct Surgery COMPARISON:Prior day's exam FINDINGS: Portable frontal view of the chest. IMPRESSION: Support Lines: None Lungsand pleura: Unchanged scattered bilateral parenchymal opacities. No new consolidation. No pneumothorax. Heart and mediastinum: Stable contours. Additional findings: None. Signed: Halley Osullivan [facility] Verified Date/Time: 09/17/2021 05:22:46 POCT-GLUCOSE [id number] 21:59:07 Test Item Value Reference Range Interpretation Comments POC-GLUCOSE METER 118 mg/dL 70-110 H : TESTED A T [facility] 6720 ([place]) (test code = [facility] [place], 1538) [address]: Telecommunications Technician/Techni bart ID = [id number] for Co Pam diop [id number] 17:58:41 Test Item Value Reference Range Interpretation Comments MAGNESIUM ([place]) (test code = 2.0 mg/dL 1.6-2.6 627) Telecommunications Technician ID - KEARA WPOCT-GLUCOSE [id number] 17:29:30 Test Item Value Reference Range Interpretation Comments POC-GLUCOSE METER 123 mg/dL 70-110 H : TESTED A T [facility] 6720 (BEAKER) (test code = [facility], 1538) [address]: Telecommunications Technician/Techni bart ID = [id number] for Sammie Mercado POCT-GLUCOSE [id number] 12:52:33 Test Item Value Reference Range Interpretation Comments POC-GLUCOSE METER 122 mg/dL 70-110 H : TESTED A T [facility] 6720 (BEAKER) (test code = [facility], 1538) [address]: Telecommunications Technician/Techni bart ID = [id number] for Sammie Mercado BASIC METABOLIC [id number] 08:28:13 Test Item Value Reference Range Interpretation [...] S NOT APPLICABLE FOR DIALYSIS PATIEN TS. Telecommunications Technician ID - KEARA WPOCT-GLUCOSE [id number] 07:58:49 Test Item Value Reference Range Interpretation Comments POC-GLUCOSE METER 82 mg/dL 70-110 : TESTED A T [facility] 6720 (BEAKER) (test code = [facility], 1538) 16859: Telecommunications Technician/Techni bart ID = [id number] for Sammie Lawosn RAD, CHEST, 1 VIEW, NON [id number] 07:01:00Reason for exam:->S/p Ct SurgeryShould this be performed at the bedside?->Yes [facility] 1945 Sex: MFINAL REPORT RAD, CHEST, 1 VIEW, NON DEPT INDICATION: S/p Ct Surgery COMPARISON:Prior day's exam FINDINGS: Portable frontal view of the chest. IMPRESSION: Support Lines: Interval removal of right chest tube. Lungs and pleura: Unchanged diffuse interstitial thickening, representingsingly or in combination, interstitial edema and/or pneumonitis. No significant pneumothorax. Heart and mediastinum: Stable contours. Additional findings: None. Signed: Gaby Cordero Verified Date/Time: 09/16/2021 07:01:13 PHOSPHORUS 2021-09-16 05:10:07 Test Item Value Reference Range Interpretation Comments PHOSPHORUS (BEAKER) (test code = 4.4 mg/dL 2.3-4.7 604) Telecommunications Technician ID - KEARA [id number] 05:10:06 Test Item Value Reference Range Interpretation Comments MAGNESIUM (BEAKER) (test code = 2.0 mg/dL 1.6-2.6 627) Telecommunications Technician ID - KEARA [id number] 04:45:18 Test Item Value Reference Range Interpretation Comments PTT (test code = 46.4 See_Comment H [Automated message] 05054-1) The system Mocapay generated this result transmitted ref erence range: 22.5 - 3 6.0 seconds. The reference range was not used to int erpret this result as normal/abnormal . Lab Interpretation (test Abnormal code = 31986-8) [facility] CenterAPTT2022-01-29 04:45:18 Test Item Value Reference Range Interpretation Comments PARTIAL THROMBOPLASTIN TIME 46.4 seconds 22.5-36.0 H (BEAKER) (test code = 760) PROTHROMBIN TIME/[id number] 04:44:13 Test Item Value Reference Range Interpretation Comments PROTIME (BEAKER) 18.3 seconds 11.9-14.2 H (test code = 759) INR (BEAKER) (test 1.54 See_Comment [Automat ed message] code = 370) The system Mocapay generated this result transmitted ref erence range: <=5.90. The reference range was not used to int erpret this result as normal/abnormal . RECOMMENDED COUMADIN/WARFARIN INR THERAPY RANGESSTANDARD DOSE: 2.0 - 3.0 Includes: PROPHYLAXIS for venous thrombosis, systemic embolization; TREATMENT for venous thrombosis and/or pulmonary embolus.HIGH RISK: Target INR is 2.5-3.5 for patients with mechanical heart valves.CALCIUM, [id number] 04:42:58 Test Item Value Reference Range Interpretation Comments CALCIUM IONIZED (BEAKER) (test 1.12 mmol/L 1.12-1.27 code = 698) PH, BLOOD (BEAKER) (test code = 7.47 1810) CBC W/PLT COUNT & AUTO [id number] 04:35:30 Test Item Value Reference Range Interpretation [...] PERCENT (BEAKER) (test code = 2801) POCT-GLUCOSE [id number] 20:58:14 Test Item Value Reference Range Interpretation Comments POC-GLUCOSE METER 104 mg/dL 70-110 : TESTED A T [facility] 6720 (BEAKER) (test code = [facility], 153) 10[address]: Telecommunications Technician/Techni bart ID = [id number] for Co Tina diopavia POCT-GLUCOSE [id number] 17:20:16 Test Item Value Reference Range Interpretation Comments POC-GLUCOSE METER 93 mg/dL 70-110 : TESTED A T [facility] 6720 (BEAKER) (test code = [facility], 153) [address]: Telecommunications Technician/Techni bart ID = [id number] for VÍCTOR MURILLO POCT-GLUCOSE [id number] 12:15:47 Test Item Value Reference Range Interpretation Comments POC-GLUCOSE METER 122 mg/dL 70-110 H : TESTED A T [facility] 6720 (BEAKER) (test code = [facility], 1538) 275[address]: Telecommunications Technician/Techni bart ID = [id number] for VÍCTOR GRIMALDO POCT-GLUCOSE [id number] 07:26:33 Test Item Value Reference Range Interpretation Comments POC-GLUCOSE METER 95 mg/dL 70-110 : TESTED A T [facility] 6720 (BEAKER) (test code = [facility] [place], 1538) [address]: Telecommunications Technician/Techni bart ID = [id number] for VÍCTOR MURILLO RAD, CHEST, 1 VIEW, NON [id number] 07:09:00while patient is intubated or has chest tubes.Reason for exam:->Status post CV SurgeryShould thisbe performed at the bedside?->Yes [facility] 1945 Sex: MFINAL REPORT CLINICAL HISTORY: Status post CV Surgery TECHNIQUE: 1 view of the chest. COMPARISON: 09/14/2021 IMPRESSION: A right chest tube is again seen without definite evidence for pneumothorax. Mild bilateral lower lung opacities are unchanged. Blunting of the costophrenic angles again seen. The cardiomediastinal silhouette is magnified by technique. Signed: Shannon Cotto Verified Date/Time: 09/15/2021 07:09:45 Reading Location: [facility] Radiology Reading Room Hepatic function [id number] 04:57:12 Test Item Value Reference Range Interpretation Comments Protein, Total (test 5.4 See_Comment L [Autom ated code = 2885-2) message] The system which generated this result transmit dante reference range : 6.0 - 8.3 gm/dL . The reference range was not u sed to interpret th is result as normal/abnormal . Albumin (test code = 2.9 g/dL 3.5-5.0 L 53837-7) Total Bilirubin (test 1.1 mg/dL 0.2-1.2 code = 1975-2) Bilirubin, Direct 0.6 mg/dL 0.1-0.5 H (test code = 1968-7) Alkaline Phosphatase 170 U/L 40-150 H (test code = 6768-6) AST (test code = 26 U/L 5-34 1920-8) ALT (test code = 43 U/L 6-55 1742-6) EMERSON (test code = EMERSON) Telecommunications Technician ID - KAYLEEN Mccartney Lab Interpretation Abnormal (test code = 49177-2) [facility] CenterHEPATIC FUNCTION [id number] 04:57:12 Test Item Value Reference Range Interpretation [...] (SGOT) (BEAKER) (test code = 26 U/L -34 353) ALT (SGPT) (BEAKER) (test code = 43 U/L 55 347) Telecommunications Technician ID - KAYLEEN [id number] 04:57:11 Test Item Value Reference Range Interpretation Comments MAGNESIUM (BEAKER) (test code = 2.0 mg/dL 1.6-2.6 627) Telecommunications Technician ID - KAYLEEN [id number] 04:57:11 Test Item Value Reference Range Interpretation Comments PHOSPHORUS (BEAKER) (test code = 3.8 mg/dL 2.3-4.7 604) Telecommunications Technician ID - KAYLEEN LBASIC METABOLIC [id number] 04:57:10 Test Item Value Reference Range Interpretation [...] S NOT APPLICABLE FOR DIALYSIS PATIEN TS. Telecommunications Technician ID - KAYLEEN [id number] 04:49:45 Test Item Value Reference Range Interpretation Comments PARTIAL THROMBOPLASTIN TIME 44.9 seconds 22.5-36.0 H (BEAKER) (test code = 760) PROTHROMBIN TIME/[id number] 04:48:43 Test Item Value Reference Range Interpretation Comments PROTIME (BEAKER) 16.0 seconds 11.9-14.2 H (test code = 759) INR (BEAKER) (test 1.30 See_Comment [Automat ed message] code = 370) The system Mocapay generated this result transmitted ref erence range: <=5.90. The reference range was not used to int erpret this result as normal/abnormal . RECOMMENDED COUMADIN/WARFARIN INR THERAPY RANGESSTANDARD DOSE: 2.0 - 3.0 Includes: PROPHYLAXIS for venous thrombosis, systemic embolization; TREATMENT for venous thrombosis and/or pulmonary embolus.HIGH RISK: Target INR is 2.5-3.5 for patients with mechanical heart valves.CBC W/PLT COUNT & AUTO [id number] 04:46:45 Test Item Value Reference Range Interpretation [...] PERCENT (BEAKER) (test code = 2801) CALCIUM, [id number] 04:42:09 Test Item Value Reference Range Interpretation Comments CALCIUM IONIZED (BEAKER) (test 1.11 mmol/L 1.12-1.27 L code = 698) PH, BLOOD (BEAKER) (test code = 7.48 1810) Prepare Leuko-Red [id number] 23:55:00 Test Item Value Reference Range Interpretation Comments CROSSMATCH (test code = 2264) COMPATIBLE Unit ABO (test code = A Pos 3815211) UNIT NUMBER (test code = [id number] 934-0) Status (test code = 5368180) [place]_TIMEINCHART Blood Bank Product (test code RED BLOOD CELLS = 2263) PRODUCT CODE (test code = [id number] 933-2) [facility] CenterMAGNESIUM2022-01-27 21:30:13 Test Item Value Reference Range Interpretation Comments MAGNESIUM (BEAKER) (test code = 2.0 mg/dL 1.6-2.6 627) Telecommunications Technician ID - PIAYA LPOCT-GLUCOSE [id number] 21:14:24 Test Item Value Reference Range Interpretation Comments POC-GLUCOSE METER 118 mg/dL 70-110 H : TESTED A T [facility] 6720 (BEAKER) (test code = [place], 1538) [address]: Telecommunications Technician/Techni bart ID = [id number] for MORELIA WEBB BASIC METABOLIC [id number] 09:32:00 Test Item Value Reference Range Interpretation [...] S NOT APPLICABLE FOR DIALYSIS PATIEN TS. Telecommunications Technician ID - PIAYA LCBC W/PLT COUNT & AUTO [id number] 09:06:06 Test Item Value Reference Range Interpretation [...] GRANULOCYTES-RELATIVE PERCENT (BEAKER) (test code = 2801) 2D Echo W/Doppler(CW/PW/Color)2021-09-14 08:48:39Ejection FractionSLEH ECHO HEARTLAB MKCKESSON [facility]PO[facility] [id number] 07:35:25 Test Item Value Reference Range Interpretation Comments POC-GLUCOSE METER 91 mg/dL 70-110 : TESTED A T [facility] 6720 (BEAKER) (test code = [facility], 1538) [address]: Telecommunications Technician/Techni bart ID = [id number] for CINDI DAVALOS BASIC METABOLIC [id number] 06:05:56 Test Item Value Reference Range Interpretation [...] S NOT APPLICABLE FOR DIALYSIS PATIEN TS. Telecommunications Technician ID - KAYLEEN LHEPATIC FUNCTION [id number] 06:05:56 Test Item Value Reference Range Interpretation [...] Specimen moderately (test code = 347) hemolyzed Telecommunications Technician ID - KAYLEEN [id number] 06:05:55 Test Item Value Reference Range Interpretation Comments MAGNESIUM (BEAKER) 2.3 mg/dL 1.6-2.6 Specimen moderately (test code = 627) hemolyzed Telecommunications Technician ID - KAYLEEN [id number] 06:05:55 Test Item Value Reference Range Interpretation Comments PHOSPHORUS (BEAKER) 3.8 mg/dL 2.3-4.7 Specimen moderately (test code = 604) hemolyzed Telecommunications Technician ID - KAYLEEN [id number] 05:42:58 Test Item Value Reference Range Interpretation Comments PARTIAL THROMBOPLASTIN TIME 39.1 seconds 22.5-36.0 H (BEAKER) (test code = 760) PROTHROMBIN TIME/[id number] 05:42:16 Test Item Value Reference Range Interpretation Comments PROTIME (BEAKER) 14.8 seconds 11.9-14.2 H (test code = 759) INR (BEAKER) (test 1.18 See_Comment [Automat ed message] code = 370) The system Mocapay generated this result transmitted ref erence range: <=5.90. The reference range was not used to int erpret this result as normal/abnormal . RECOMMENDED COUMADIN/WARFARIN INR THERAPY RANGESSTANDARD DOSE: 2.0 - 3.0 Includes: PROPHYLAXIS for venous thrombosis, systemic embolization; TREATMENT for venous thrombosis and/or pulmonary embolus.HIGH RISK: Target INR is 2.5-3.5 for patients with mechanical heart valves.CALCIUM, [id number] 05:36:36 Test Item Value Reference Range Interpretation Comments CALCIUM IONIZED (BEAKER) (test 1.07 mmol/L 1.12-1.27 L code = 698) PH, BLOOD (BEAKER) (test code = 7.42 1810) RAD, CHEST, 1 VIEW, NON [id number] 02:39:00while patient is intubated or has chest tubes.Reason for exam:->Status post CV SurgeryShould thisbe performed at the bedside?->Yes [facility] 1945 Sex: MFINAL REPORT RAD, CHEST, 1 VIEW, NON DEPT INDICATION: Status post CV Surgery COMPARISON: Prior day's exam FINDINGS: Portable frontal view of the chest. IMPRESSION: Support Lines: Stable right chest tube. Lungs and pleura: Unchanged bibasilar airspace and pleural opacities. No pneumothorax. Heart and mediastinum: Stable contours. Additional findings: None. Signed: Halley Osullivan Verified Date/Time: 09/14/2021 02:39:11 POCT-GLUCOSE [id number] 22:16:46 Test Item Value Reference Range Interpretation Comments POC-GLUCOSE METER 116 mg/dL 70-110 H : TESTED A T [facility] 6720 (BEAKER) (test code = [facility], 1538) 75[address]: Telecommunications Technician/Techni bart ID = [id number] for VISHAL GAINES BASIC METABOLIC [id number] 17:49:41 Test Item Value Reference Range Interpretation [...] S NOT APPLICABLE FOR DIALYSIS PATIEN TS. Telecommunications Technician ID - JACQUELINE [id number] 17:49:41 Test Item Value Reference Range Interpretation Comments MAGNESIUM (BEAKER) (test code = 2.2 mg/dL 1.6-2.6 627) Telecommunications Technician ID - JACQUELINE CPOCT-GLUCOSE [id number] 17:28:04 Test Item Value Reference Range Interpretation Comments POC-GLUCOSE METER 153 mg/dL 70-110 H : TESTED A T [facility] 6720 (BEAKER) (test code [facility], = 1538) 925[address]: Telecommunications Technician/Techni bart ID = [id number] for Ritchie h, Silvana POCT-GLUCOSE [id number] 11:25:51 Test Item Value Reference Range Interpretation Comments POC-GLUCOSE METER 122 mg/dL 70-110 H : TESTED A T [facility] 6720 (BEAKER) (test code = [place], 1538) [address]: Telecommunications Technician/Techni bart ID = [id number] for PH ABDOULAYE ROJAS [id number] 11:03:29 Test Item Value Reference Range Interpretation Comments MAGNESIUM (BEAKER) (test code = 2.0 mg/dL 1.6-2.6 627) Telecommunications Technician ID - AUG CBASI METABOLIC [id number] 11:03:28 Test Item Value Reference Range Interpretation [...] S NOT APPLICABLE FOR DIALYSIS PATIEN TS. Telecommunications Technician ID - AUG CVenous doppler arm, [id number] 10:17:08Ejection FractionSLEH ECHO HEARTLAB MKCKESSON CPACSCHI Fabiola HospitalType and screen, [id number] 09:38:00 Test Item Value Reference Range Interpretation Comments ABO/RH AUTOMATED (BEAKER) (test A POSITIVE code = 2260) Ab Scrn (test code = 890-4) NEGATIVE [facility] HospitalRAD, CHEST, 1 VIEW, NON [id number] 08:40:00while patient is intubated or has chest tubes.Reason for exam:->Status post CV SurgeryShould thisbe performed at the bedside?->Yes [facility] : 1945 Sex: MFINAL REPORT CLINICAL HISTORY: Status post CV Surgery TECHNIQUE: 1 view of the chest. COMPARISON: 09/12/2021 IMPRESSION: The right jugular sheath has been removed. The right chest tube remains. No pneumothorax. Right lung opacity is unchanged. Blunting of the left costophrenic anglenow noted. The cardiomediastinal silhouette is magnified by technique. Signed: Shannon Cotto Verified Date/Time: 09/13/2021 08:40:29 Reading Location: [facility] Radiology Reading Room POCT-GLUCOSE [id number] 08:01:34 Test Item Value Reference Range Interpretation Comments POC-GLUCOSE METER 89 mg/dL 70-110 : Notified RN/MD: TESTED (BEAKER) (test code = AT [facility] [address] [place] [id number]) [facility], [facility] 30: Telecommunications Technician/Techni bart ID = [id number] for ABDOULAYE KATZ PROTHROMBIN TIME/[id number] 04:58:25 Test Item Value Reference Range Interpretation Comments PROTIME (BEAKER) 15.6 seconds 11.9-14.2 H (test code = 759) INR (BEAKER) (test 1.26 See_Comment [Automat ed message] code = 370) The system Mocapay generated this result transmitted ref erence range: <=5.90. The reference range was not used to int erpret this result as normal/abnormal . RECOMMENDED COUMADIN/WARFARIN INR THERAPY RANGESSTANDARD DOSE: 2.0 - 3.0 Includes: PROPHYLAXIS for venous thrombosis, systemic embolization; TREATMENT for venous thrombosis and/or pulmonary embolus.HIGH RISK: Target INR is 2.5-3.5 for patients with mechanical heart valves.CBC W/PLT COUNT & AUTO [id number] 03:26:57 Test Item Value Reference Range Interpretation [...] (BEAKER) (test code = 2801) BASIC METABOLIC [id number] 02:43:59 Test Item Value Reference Range Interpretation [...] 697) EGFR (BEAKER) (test 96 mL/min/1.73 ESTIMA DANTE GFR IS code = 1092) sq m NOT ACCURATE CREATININE CLEARANCE IN PREDICTING GLOMERULAR FILTRATION RATE . ESTIMATED GFR I S NOT APPLICABLE FOR DIALYSIS PATIEN TS. Patient is on LVAD, which may hemolyze the blood.Telecommunications Technician ID - PIAYA LHEPATIC FUNCTION [id number] 02:43:59 Test Item Value Reference Range Interpretation [...] Specimen moderately (test code = 347) hemolyzed Telecommunications Technician ID - KAYLEEN [id number] 02:43:58 Test Item Value Reference Range Interpretation Comments PHOSPHORUS (BEAKER) 3.1 mg/dL 2.3-4.7 Specimen moderately (test code = 604) hemolyzed Telecommunications Technician ID - PIMARIELA [id number] 02:43:57 Test Item Value Reference Range Interpretation Comments MAGNESIUM (BEAKER) 2.0 mg/dL 1.6-2.6 Specimen moderately (test code = 627) hemolyzed Telecommunications Technician ID - KAYLEEN LOperator ID - KAYLEEN [id number] 02:41:16 Test Item Value Reference Range Interpretation Comments PARTIAL THROMBOPLASTIN TIME 44.3 seconds 22.5-36.0 H (BEAKER) (test code = 760) CALCIUM, [id number] 02:05:55 Test Item Value Reference Range Interpretation Comments CALCIUM IONIZED (BEAKER) (test 1.10 mmol/L 1.12-1.27 L code = 698) PH, BLOOD (BEAKER) (test code = 7.43 1810) Blood gas, [id number] 02:04:48 Test Item Value Reference Range Interpretation Comments pH, Declan (test code = 7.43 7.32-7.42 H 2746-6) pCO2, Declan (test code = 38 See_Comment L [Aut omated message] 915) The system whic h generated this result transmit dante reference range : 41 - 51 mm Hg. The reference range was not used to interpret this result as normal/abnormal . pO2, Declan (test code = 40 See_Comment [Auto mated message] 3685-2) The system whic h generated this result transmit dante reference range : 25 - 40 mm Hg. The reference range was not used to interpret this result as normal/abnormal . O2 Sat, Declan (test code 76.6 % 40.0-70.0 H = 2711-0) HCO3, Declan (test code = 25 mmol/L 21-29 99361-2) Base Excess, Declan (test 0.9 mmol/L -2.0-3.0 code = 1927-3) Patient Temperature 37.0 (test code = 8310-5) FIO2 (test code = 1819) 21 Lab Interpretation Abnormal (test code = 61426-9) [facility], [id number] 02:04:48 Test Item Value Reference Range Interpretation [...] (BEAKER) (test code = 1819) 21.0 POCT-GLUCOSE [id number] 22:07:43 Test Item Value Reference Range Interpretation Comments POC-GLUCOSE METER 105 mg/dL 70-110 : TESTED A T [facility] 6720 [facility] (test [facility] = [facility], 1538) [address]: Telecommunications Technician/Techni bart ID = [id number] for GO DAGO VISHAL POCT-GLUCOSE [id number] 16:18:37 Test Item Value Reference Range Interpretation Comments POC-GLUCOSE METER 118 mg/dL 70-110 H : Notified RN/MD: (BRAXTON) (test code = TESTED AT [facility] 6720 1538) [facility], [address]: Telecommunications Technician/Techni bart ID = [id number] for PH INBRENDA WILDERTY Tissue [id number] 14:59:34 Test Item Value Reference Range Interpretation Comments Case Report (test code Surgical Pathology = 104) Report Case: [id number] Authorizing Provider: Colby Bui, Collected: 09/07/2021 12:07 PM Ordering Location: [facility] Received: 09/07/2021 03:40 PM PERIOPERATIVE SERVICES Pathologist: Ciro Diamond MD Specimen: Mitral Valve, MITRAL VALVE DIAGNOSIS (test code = e4ilaOJkOOLvr1ngYSDfkTI 3220) uZzEwMzNcZnRuYmpcdWMxIH tccnRmMVxlcGljOTYwMVxhb mGiTTGozLZlZ2FpjzybPKie EO6hQN6ceZywuKMvqRTuNEX mNjJkt2rxi600hIOlr9ibJB IPndpwhMr4kXsgJ57na4H6S eyzU59pqSJmYDS8FSVmPYGq xNPhECCyESP0WPRmjFRxY5h wUJHgQD5jatwaMVruUVqbOU SdgCP8OMXcwGPvL8OsXJRyV UswTTYdyzr1KcEsIl6yjJYr eTcyMFxwYXJkXHBsYWluXGZ zMjAgTUlUUkFMIFZBTFZFLC JRHCGHF1nCApqagDCeWTKJE MTEMYNYMCJNG7VMSVKRQDRX JWXBU8KUOODPVQjUGKJZUBB IR4HPACCTTICTB0CXNEHIXH qGVNJFK3DWYL5NBYQwun07G QL0OcVlq1I1MUV7YHYvERHu v5iiALTsvGEnPzXqTdLeQzK eDnmtsCGnRJCsTeMof5vcn1 29sILmz4ynODCzLtK3yGVnM MYpmOOrU328JLVbFQvwy0mq a5ZiOOMemDAya9E6YBOKzeg hpWc8nDpgZ51mt8Z4UyfbN5 bcKKOdRDPtV0FrZE9kTPXqS lo0KDR0TTX9VVZfDKWgA5Fu TF4mWFLouCLoBCo2i3zegCg dTEDbIRZ4v9yhSTjxkwUyOA 8pki8slPh1q1yhshNuUSXyZ DJvdJUSAYVgV2NyaTasRw9l rWw7oBogKidbCCG5Uhs2IX9 gla64aia6aQreIGKoimefOc I0MKwhNUEwzbrdSSi1ATskH NJyeTJ1WSMroVGgZ5VbGFTk DC9hozj1AQF0EUlyPQRkWiX 2JIFuqCRoJACbyIeoLDopi5 78VXK1SlWtHT1mE9Lmu7I6o R7alNOnKHYvcPHmImHyVTNs um6twTFaZVqjb3ScHFX1bsJ 3fUFnhKJsHHFuDcP2KHtzHT 3upv07XKZbBFG5cy6hbIJyp LfmrtBvzBYnCLlhT2YrCWEt i078LTCgW0ZvJFHsg8A5xmK pFaOlYCXolHT3qyF5WRMwYQ 0meggku2kdGPkoOKkuBYGku yM9uxI9ECEadNAoT4CltG8a VHNmHF4rjbtga5mqSNG2VMr tFPSfXOR6TaBfYWGry5Zwsn r2KnIeq1JqiSFaLLtwR12vi 284FAClvzQmD0mccRUqurpd cKAguymrXYlptsY4SPAwLKo kxvbcIZGzQXisW9zaDfJzGR IrrQuxHFncv2FgRXOfUKPjJ uHfjOThIAImVeq7BXXwjWVj ZWGyTcTnF7ewyqisOqFUUGQ nh0jpX2dalFQCcPRoC2TbHM hvbmUgTGluZTogNzEzLTYxN O56OJD7EWShjg49 CPT Code(s) (test code k1qjsKXxOFDfvSZ6HkDsMCI = 3357) qu3bme2GqtIRkhXJfPBurdR KwctUrfm84bDJ1dL49ZP2jU KNvJdY4HYJfhhR7Ino8VNXy XBTwcHXzC296e1xxw2mponS ohCR7nDpeUMPkdxaxZpU3XE smFWSuqhzwNZk3KHotIMUyh ZE7SEPjpDZrA5ZmFMDhXF3n zzv2YDQ9VVspICXoYkE9VTE maDQtKJEaqPanPHxpi039MA H5BfAvPZHnkqFgoFeouM5zY lLyGBE5QBMsLJzsABW2 CLINICAL HISTORY (test a9wybYJqWZExaPG3DfEyASI code = 3356) zv0oba3UqmSUbaPSjZTiqjW SfmkGmme18kBG9yI51IK3yP PBlQxM4PJAgjeP5Kvh3SWCn HZRcfZRtM970u0vet9mhokR nyOT3qVbtVFYvvxfbFuW7HM urCYJvhvopSKt9FKloPQLrd YS3EIRlbOLxS2KoEZAbDW1f eva3ZLW9SVldNJCfYwV4GLV wtTQzMSUlgSluFSmvj177BE Q9TeDyOHZywjApqEjcwR4sU nMyMCBBdHJpYWwgZmlicmls iMV2oP9pBBRniGXxERpxoeK kdpXnpP2wfJAgdNAxII5npS xwYXJ9 SPECIMEN SOURCE (test r0mzlORqVUGonRG1ExAgQDG code = 3377) ys0fad7KwtLRvdDZeKGqjiV BjstTjol80fFS0oU26DU3zQ LYgPnV8UFAlvwG8Yep1IHEv QYUrdYFrV152i1jdo1ggflU ovNH7oPasBLZddmucBsR1UZ qwHLMpwxhhHUp6QUkjWRQza KJ7DAXdkSGaI8HwEEAoRB1t tlu4RKW3UIxdMCNzHkJ2IAU ycYIzEQQkyHiqXOxyf747AY G3EfAhGIEmfpCcuQfoxT2lJ nMyMCBNaXRyYWwgdmFsdmVc cGFyfQ== GROSS DESCRIPTION e5wwxNKyULPwjPPfCkYaZEW (test code = 3366) aVARjd7hnMQDawMVqYyBaFz NcZnRuYmpcdWMxXGRlZmYwe 7auj753uJQag5adTAKnCbL5 kOFnRNKkyUXsU780i6bsl3m idrXorBE9RGZqDMM7YVzbvz DqqwL9BVkcoZNsYdM0VReyl yDtYNxuqxEtadZzYvy4WLEw B207QIY2dPbcr4ymOYI6OEM kWTLbIgEmVn2egCIwJ855BG BcVAVFLVOucSi1QQUtnbTod hHftHAOa862L941w2vkESUz upAzuFgGeinjh3okH647QGD hcGVydzEyMjQwXHBhcGVyaD J3DVXtDI2ddgykBzReZF9bc xrpHwIwPJ3ypxp9AhJqJO6z cmdiNzIwXGhlYWRlcnkwXGZ ds6XptpijBV3wA4Lbo8Z0uJ 9maXRcZGVmdGFiNzIwXGZvc e7niQBbIKvoa9CvYQL4nuX7 fLGtnPVtAKKjXC55Ybecw6T cYvtkVHW7EBGigrGqj1Fzr4 okRmIyrgAsW5ysJ7MqBWGiM PGeILQzIjVkowYly7Bvj2Wk zPXdlKq6r9kvDBWrTLGrtLv nl6azVGU4OYAeZ5Q2hITdb8 uaLPloDXUucOR8zgkrZXfaZ IFkwaX1htngCVbaQFMgmQA4 yscyXUeuQXVpZdS4ojpsLQv aRQPnQIM3ZAwhp209CZV7FA xzYmtwYWdlXHBnbmNvbnRcc GduZGVjXHBsYWluXHBsYWlu XGYwXGZzMjRccWxccGxhaW5 yGcAcWnTyPEhhQW8mANEcZ7 mvsNRhTOZmOJEvG8irBzNph P1hqSydRCtkfeOfDOAtQFPa C8PnhqPyYGYzRWXkEQbzEbU xCVRzb6m7aPD3fLUelQS1dU RwzDbwWzUfSS1xfGCuDM7dB CbqJWxeixMdk5YaIX31nEXw ubIvqrHeYi0reWCbeEN5LHh 2ZSIgaXMgYSAzLjcgeCAzLj OtfPKqNlGxN49lnWVtCE3rq AhunnDpo4R3pW5jBU4lLBcx fGgltj18vFz5CNabn4riQ8b 1vDgzoBlnG9zsleDoMZOziT G2xXXpOPWtw4Z5FL7tDCUaN QZdCBhqUQQfj36uaOdnAY1u bN38VS6zEUJ2uRQaoOCiSJR 8dYlnh3VsPKLeB2bxqjLiFM A5AV2bpH4oVEQtYWVEeGSuz 5FrU9loCX8fuNVah6YblYAz cDegi8PqxZutotHpEEEoVCW lflQsiv1sdkLiKENas19uLJ VuVXrkXP24aQMmBMVnDHHGR YGhLDBmmeKqpVh0KNKjQBA2 cM6wddAbvyKfx7XuiFf8nUH kIGluIEExLlxwYXJccGFyIE ZgFHvdZEMzF8NteL7gFW6QW olqLNUaZNFXN9XmZ39xuMYl fQ== MICROSCOPIC f6qlbHWnYAWssSJ0MfClDPL DESCRIPTION (test code pj5ksw6RnwLKwrOLiRUlxzS = 3371) PbfbXhra99eKP6nC51DX8aH IPnPtQ6ZQKbqbH1Fzg0IUSh HOLseVJkQ207l9dii2ibtiB hhVB5qQkmRDBhvhlnWhH5ON orSOPrzeolIHk9JSmdRZIba WX0RJHjbMJdN4LcBVMhED7a yud2QIS6GZjeSMNbBoT1TZV adLLzJWCiaBanLJlll376EG T4DhTwMRPspsMcgWcumL0yJ dFuWOSUJWNuj9DpTBMvGHNk cn0= Gross assessment was [facility] performed at ([facility], code = 2777) Department of Pathology, [address] [place] [address], Technical component [facility] was performed at ([facility], code = 2778) Department of Pathology, [address] [place] [address], Professional component [facility] was performed at ([facility], code = 2779) Department of Pathology, [address] [place] [address], [facility] CenterTISSUE [id number] 14:59:34Surgical Pathology Report Case: [id number] Authorizing Provider: Colby Bui, Collected: 09/07/2021 12:07 PM Ordering Location: [facility] Received: 09/07/2021 03:40 PM PERIOPERATIVE SERVICES Pathologist: Ciro Diamond MD Specimen: Mitral Valve, MITRAL VALVE MITRAL VALVE, EXCISION:VALVULAR TISSUE WITH DEGENERATIVE CHANGES AND FOCAL CALCIFICATION Signing Pathologist DirectPhone Line: [phone] signed by Ciro Diamond MD on 09/12/2021 at 2:59 [id number] fibrillation, mitral valve insufficiencyMitral valveA. Received fresh labeled with the patient's name, medical record number and "mitral valve" is a 3.7 x 3.4 x 0.1 cm triangular portion of yellow-white, slightly thickened valvular tissue. There is a small amount of attached, thickened chordae tendineae. The specimen is serially sectioned and no gross lesion are identified. [employer]ai Culturist sections are submitted in A1.SASHA Graf PA ([facility])cmPerformed.[facility], Department of Pathology, [address] [place] [address], [facility], [facility] of [facility], [address] [place] [address], [facility], Department of Pathology, [address] [place] [address], RSDXUBR, [id number] 13:07:17 Test Item Value Reference Range Interpretation Comments CALCIUM IONIZED (BEAKER) (test 1.12 mmol/L 1.12-1.27 code = 698) PH, BLOOD (BEAKER) (test code = 7.49 1810) [id number] 13:05:22 Test Item Value Reference Range Interpretation Comments Potassium (test code = 4.1 meq/L 3.5-5.1 Speci men 2823-3) slightly hemolyzed EMERSON (test code = EMERSON) Telecommunications Technician ID - MARZENA M Lab Interpretation Normal (test code = 61824-8) [facility] CenterPOTASSIUM2022-01-25 13:05:22 Test Item Value Reference Range Interpretation Comments POTASSIUM (BEAKER) 4.1 meq/L 3.5-5.1 Specimen slightly (test code = 379) hemolyzed Telecommunications Technician ID - MARZENA [id number] 13:05:21 Test Item Value Reference Range Interpretation Comments MAGNESIUM (BEAKER) 2.2 mg/dL 1.6-2.6 Specimen slightly (test code = 627) hemolyzed Telecommunications Technician ID - MARZENA [id number] 13:05:21 Test Item Value Reference Range Interpretation Comments PHOSPHORUS (BEAKER) 2.6 mg/dL 2.3-4.7 Specimen slightly (test code = 604) hemolyzed Telecommunications Technician ID - MARZENA MPOCT-GLUCOSE [id number] 11:29:26 Test Item Value Reference Range Interpretation Comments POC-GLUCOSE METER 126 mg/dL 70-110 H : Notified RN/MD: (BRAXTON) (test code = TESTED AT [place] [address] 1538) [facility], [address]: Telecommunications Technician/Techni bart ID = [id number] for ABDOULAYE WOODS POCT-GLUCOSE [id number] 08:03:15 Test Item Value Reference Range Interpretation Comments POC-GLUCOSE METER 98 mg/dL 70-110 : Notified RN/: TESTED (BRAXTON) (test code = AT [facility] [address] 1538) [facility], 770 30: Telecommunications Technician/Techni bart ID = [id number] for ABDOULAYE KATZ Venous doppler arm, [id number] 06:52:54Ejection [facility] ECHO HEARTLAB MKCKESSON [facility] CenterRAD[facility]ST, 1 VIEW, NON [id number] 06:05:00while patient is intubated or has chest tubes.Reason for exam:- >Status post CV SurgeryShould thisbe performed at the bedside?->Yes [facility] : 1945 Sex: MFINAL REPORT RAD, CHEST, 1 VIEW, NON DEPT INDICATION: Status post CV Surgery COMPARISON: Prior day's exam FINDINGS: Portable frontal view of the chest. IMPRESSION: Support Lines: Pulmonary arterial catheter has been removed. Lungs and pleura: Unchanged right basilar airspace and pleural opacities. Left lung is clear. No pneumothorax. Heart and mediastinum: Stable contours. Addition al findings: None. Signed: Halley Osullivan MDReport Verified Date/Time: 09/12/2021 06:05:44 TIC FUNCTION [id number] 04:15:05 Test Item Value Reference Range Interpretation [...] (test code = 46 U/L 6-55 347) Telecommunications Technician ID - MARZENA [id number] 04:15:04 Test Item Value Reference Range Interpretation Comments MAGNESIUM (BEAKER) (test code = 2.4 mg/dL 1.6-2.6 627) Telecommunications Technician ID - MARZENA [id number] 04:15:04 Test Item Value Reference Range Interpretation Comments PHOSPHORUS (BEAKER) (test code = 3.3 mg/dL 2.3-4.7 604) Telecommunications Technician ID - MARZENA MBASIC METABOLIC [id number] 04:15:03 Test Item Value Reference Range Interpretation [...] S NOT APPLICABLE FOR DIALYSIS PATIEN TS. Telecommunications Technician ID - MARZENA MPT/[id number] 04:11:05 Test Item Value Reference Interpretation Comments Range Protime (test code = 15.8 See_Comment H [Autom ated 5902-2) message] The system which generated this result transmitted reference range : 11.9 - 14.2 seconds. The reference range was not used to interpret this result as normal/abnormal . INR (test code = 1.28 See_Comment [Automated 4441-6) message] The system which generated this result transmitted reference range : <=5.90. The reference range was not used to interpret this result as normal/abnormal . PTT (test code = 47.6 See_Comment H [Automated 48887-4) message] The system which generated this result transmitted reference range : 22.5 - 36.0 seconds. The reference range was not used to interpret this result as normal/abnormal . EMERSON (test code = RECOMMENDED EMERSON) COUMADIN/WARFARIN INR THERAPY RANGESSTANDARD DOSE: 2.0 - 3.0 Includes: PROPHYLAXIS for venous thrombosis, systemic embolization; TREATMENT for venous thrombosis and/or pulmonary embolus.HIGH RISK: Target INR is 2.5-3.5 for patients with mechanical heart valves. Lab Interpretation Abnormal (test code = 04354-2) [facility] CenterPT/[id number] 04:11:05 Test Item Value Reference Range Interpretation [...] RANGESSTANDARD DOSE: 2.0 - 3.0 Includes: PROPHYLAXIS for venous thrombosis, systemic embolization; TREATMENT for venous thrombosis and/or pulmonary embolus.HIGH RISK: Target INR is 2.5-3.5 for patients with mechanical heart valves.CBC W/PLT COUNT & AUTO [id number] 04:06:36 Test Item Value Reference Range Interpretation [...] GRANULOCYTES-RELATIVE PERCENT (BEAKER) (test code = 2801) Blood gas, [id number] 04:00:34 Test Item Value Reference Range Interpretation Comments pH, Arterial (test code 7.47 7.35-7.45 H = 2744-1) pCO2, Arterial (test 33 See_Comment L [Autom ated message] code = 2019-8) The system [employer] generated this result transmit dante reference range : 35 - 45 mm Hg. The reference range was not used to interpret this result as normal/abnormal . pO2, Arterial (test 144 See_Comment H [Automa dante message] code = 2703-7) The system [employer] generated this result transmit dante reference range : 80 - 90 mm Hg. The reference range was not used to interpret this result as normal/abnormal . O2 Sat, Arterial (test 99.0 % 96.0-97.0 H code = 2708-6) HCO3, Arterial (test 23 mmol/L 21-29 code = 1960-4) Base Excess, Arterial 0.2 mmol/L -2.0-3.0 (test code = 1925-7) Patient Temperature 37.5 (test code = 8310-5) FIO2 (test code = 1819) 21 Lab Interpretation Abnormal (test code = 38482-4) [facility] CenterBLOOD GAS, [id number] 04:00:34 Test Item Value Reference Range Interpretation [...] FIO2 (BEAKER) (test code = 1819) 21.0 Lactic Acid, [id number] 03:57:33 Test Item Value Reference Range Interpretation Comments Lactate, Art (test code = 0.8 mmol/L 0.5-2.2 2874) EMERSON (test code = EMERSON) Telecommunications Technician ID - MARZENA M Lab Interpretation (test Normal code = 10920-8) [facility] CenterLACTIC ACID, [id number] 03:57:33 Test Item Value Reference Range Interpretation Comments LACTATE BLOOD ARTERIAL (2) 0.8 mmol/L 0.5-2.2 (BEAKER) (test code = 2874) Telecommunications Technician ID - MARZENA MCALCIUM, [id number] 03:56:36 Test Item Value Reference Range Interpretation Comments CALCIUM IONIZED (BEAKER) (test 1.13 mmol/L 1.12-1.27 code = 698) PH, BLOOD (BEAKER) (test code = 7.48 1810) [id number] 21:01:53 Test Item Value Reference Range Interpretation Comments MAGNESIUM (BEAKER) (test code = 2.2 mg/dL 1.6-2.6 627) Telecommunications Technician ID - DBBASIC METABOLIC [id number] 21:01:52 Test Item Value Reference Range Interpretation [...] S NOT APPLICABLE FOR DIALYSIS PATIEN TS. Telecommunications Technician ID - DBHemoglobin and qqmjytqimo4929-97-92 20:37:40 Test Item Value Reference Range Interpretation Comments Hemoglobin (test code 8.3 See_Comment L [Auto mated = 786-4) message] The system which generated this result transmit dante reference range : 13.7 - 17.5 GM/ DL. The reference range was not u sed to interpret th is result as normal/abnormal . Hematocrit (test code 26.6 % 40.1-51.0 L = 4544-3) EMERSON (test code = EMERSON) Telecommunications Technician ID - [id number] Lab Interpretation Abnormal (test code = 85945-7) [facility] CenterHEMOGLOBIN AND [id number] 20:37:40 Test Item Value Reference Range Interpretation Comments HEMOGLOBIN (BEAKER) (test code = 8.3 GM/DL 13.7-17.5 L 410) HEMATOCRIT (BEAKER) (test code = 26.6 % 40.1-51.0 L 411) Telecommunications Technician ID - 6000POCT-GLUCOSE [id number] 20:36:55 Test Item Value Reference Range Interpretation Comments POC-GLUCOSE METER 110 mg/dL 70-110 : TESTED A T [facility] 6720 (BEAKER) (test code = [place], 1538) [address]: Telecommunications Technician/Techni bart ID = [id number] for MA BEVERLEY CHAUDHRY POCT-GLUCOSE [id number] 16:19:31 Test Item Value Reference Range Interpretation Comments POC-GLUCOSE METER 127 mg/dL 70-110 H : TESTED A T [facility] 6720 (BEAKER) (test code = [facility] [place], 1538) [address]: Telecommunications Technician/Techni bart ID = [id number] for PH ABDOULAYE ROJAS [id number] 12:45:58 Test Item Value Reference Range Interpretation Comments MAGNESIUM (BEAKER) (test code = 2.4 mg/dL 1.6-2.6 627) Telecommunications Technician ID - QBDEIOIMGPSV4376-96-83 12:45:58 Test Item Value Reference Range Interpretation Comments PHOSPHORUS (BEAKER) (test code = 2.7 mg/dL 2.3-4.7 604) Telecommunications Technician ID - RMBASIC METABOLIC [id number] 12:45:57 Test Item Value Reference Range Interpretation [...] S NOT APPLICABLE FOR DIALYSIS PATIEN TS. Telecommunications Technician ID - RMCALCIUM, [id number] 12:25:40 Test Item Value Reference Range Interpretation Comments CALCIUM IONIZED (BEAKER) (test 1.09 mmol/L 1.12-1.27 L code = 698) PH, BLOOD (BEAKER) (test code = 7.46 1810) Oxygen saturation, [id number] 12:25:23 Test Item Value Reference Range Interpretation Comments O2 Saturation (Measured) (test code = 53.2 % 63500-7) [facility] CenterOXYGEN SATURATION, [id number] 12:25:23 Test Item Value Reference Range Interpretation Comments O2 SATURATION (MEASURED) (BEAKER) 53.2 % (test code = 1455) POCT-GLUCOSE [id number] 11:12:10 Test Item Value Reference Range Interpretation Comments POC-GLUCOSE METER 87 mg/dL 70-110 : TESTED A T [facility] 6720 (BEAKER) (test code = [place], 1538) [address]: Telecommunications Technician/Techni bart ID = [id number] for HINT PABLITO VANCE POCT-GLUCOSE [id number] 08:30:46 Test Item Value Reference Range Interpretation Comments POC-GLUCOSE METER 120 mg/dL 70-110 H : TESTED Rut Goncalves [facility] 6720 (BEAKER) (test code = [place], 1538) [address]: Telecommunications Technician/Techni bart ID = [id number] for PH ABDOULAYE ROJAS OXYGEN SATURATION, [id number] 06:27:31 Test Item Value Reference Range Interpretation Comments O2 SATURATION (MEASURED) (BEAKER) 54.6 % (test code = 1455) HEPATIC FUNCTION [id number] 04:48:25 Test Item Value Reference Range Interpretation [...] Specimen moderately (test code = 347) hemolyzed Telecommunications Technician ID Patrick SARAH UEJITYRDVYB7811-04-13 04:48:24 Test Item Value Reference Range Interpretation Comments PHOSPHORUS (BEAKER) 2.8 mg/dL 2.3-4.7 Specimen moderately (test code = 604) hemolyzed Telecommunications Technician ID - KEARA WBASIC METABOLIC [id number] 04:48:24 Test Item Value Reference Range Interpretation [...] S NOT APPLICABLE FOR DIALYSIS PATIEN TS. Telecommunications Technician ID Patrick SARAH [id number] 04:48:23 Test Item Value Reference Range Interpretation Comments MAGNESIUM (BEAKER) 2.1 mg/dL 1.6-2.6 Specimen moderately (test code = 627) hemolyzed Telecommunications Technician ID Patrick SARAH WPT/[id number] 04:45:21 Test Item Value Reference Range Interpretation [...] RANGESSTANDARD DOSE: 2.0 - 3.0 Includes: PROPHYLAXIS for venous thrombosis, systemic embolization; TREATMENT for venous thrombosis and/or pulmonary embolus.HIGH RISK: Target INR is 2.5-3.5 for patients with mechanical heart valves.CBC W/PLT COUNT & AUTO [id number] 04:41:38 Test Item Value Reference Range Interpretation [...] (BEAKER) (test code = 2801) LACTIC ACID, [id number] 04:32:15 Test Item Value Reference Range Interpretation Comments LACTATE BLOOD 1.0 mmol/L 0.5-2.2 Specimen moder ately ARTERIAL (2) (BEAKER) hemoly zed (test code = 2874) Telecommunications Technician ID - KEARA PEREZALCIUM, [id number] 04:12:20 Test Item Value Reference Range Interpretation Comments CALCIUM IONIZED (BEAKER) (test 1.08 mmol/L 1.12-1.27 L code = 698) PH, BLOOD (BEAKER) (test code = 7.51 1810) BLOOD GAS, [id number] 04:12:14 Test Item Value Reference Range Interpretation [...] (test code = 1819) 21.0 OXYGEN SATURATION, [id number] 04:12:09 Test Item Value Reference Range Interpretation Comments O2 SATURATION (MEASURED) (BEAKER) 57.4 % (test code = 1455) RAD, CHEST, 1 VIEW, NON [id number] 03:17:00while patient is intubated or has chest tubes.Reason for exam:->Status post CV SurgeryShould thisbe performed at the bedside?->Yes [facility] : 1945 Sex: MFINAL REPORT RAD, CHEST, 1 VIEW, NON DEPT INDICATION: Status post CV Surgery COMPARISON: Prior day's exam FINDINGS: Portable frontal view of the chest. IMPRESSION: Support Lines: Stable. Lungs and pleura: Unchanged airspace and pleural opacities. No pneumothorax.Heart and mediastinum: Stable contours. Stable surgical changes.Additional findings: None. Signed: Rm [place] Verified Date/Time: 09/11/2021 03:17:44 Electronically signed by: Emir BARRIOS 09/11/2021 03:17 AMBASIC METABOLIC [id number] 22:33:36 Test Item Value Reference Range Interpretation [...] S NOT APPLICABLE FOR DIALYSIS PATIEN TS. Telecommunications Technician ID - [id number] 22:33:35 Test Item Value Reference Range Interpretation Comments MAGNESIUM (BEAKER) 2.5 mg/dL 1.6-2.6 Specimen slightly (test code = 627) hemolyzed Telecommunications Technician ID - DBPOCT-GLUCOSE [id number] 22:18:05 Test Item Value Reference Range Interpretation Comments POC-GLUCOSE METER 113 mg/dL 70-110 H : TESTED A T [facility] 6720 (BEAKER) (test code = [place], 1538) [id number]: Telecommunications Technician/Techni bart ID = [id number] for ERASMO PORRAS HEMOGLOBIN AND [id number] 22:16:52 Test Item Value Reference Range Interpretation Comments HEMOGLOBIN (BEAKER) (test code = 8.3 GM/DL 13.7-17.5 L 410) HEMATOCRIT (BEAKER) (test code = 25.3 % 40.1-51.0 L 411) Telecommunications Technician ID - [id number]-GLUCOSE [id number] 17:01:08 Test Item Value Reference Range Interpretation Comments POC-GLUCOSE METER 116 mg/dL 70-110 H : TESTED A T [facility] 6720 (BEAKER) (test code = [place], 1538) [id number]: Telecommunications Technician/Techni bart ID = [id number] for SERAFIN ATWOOD 2D Echo W/Doppler(CW/PW/Color)2021-09-10 16:05:16Ejection [facility] ECHO [facility] 2021-09-10 15:40:36 Test Item Value Reference Range Interpretation Comments O2 SATURATION (MEASURED) (BEAKER) 79.1 % (test code = 1455) [id number] 13:24:14 Test Item Value Reference Range Interpretation Comments MAGNESIUM (BEAKER) (test code = 2.2 mg/dL 1.6-2.6 627) Telecommunications Technician ID - PIAYA LBASIC METABOLIC [id number] 13:24:13 Test Item Value Reference Range Interpretation [...] S NOT APPLICABLE FOR DIALYSIS PATIEN TS. Telecommunications Technician ID - KAYLEEN LCALCIUM, [id number] 13:05:15 Test Item Value Reference Range Interpretation Comments CALCIUM IONIZED (BEAKER) (test 1.06 mmol/L 1.12-1.27 L code = 698) PH, BLOOD (BEAKER) (test code = 7.52 1810) POCT-GLUCOSE [id number] 11:27:00 Test Item Value Reference Range Interpretation Comments POC-GLUCOSE METER 138 mg/dL 70-110 H : TESTED A T [facility] 6720 (BEAKER) (test code = [facility], 1538) [address]: Telecommunications Technician/Techni bart ID = [id number] for GERRI KEESERAFIN POCT-GLUCOSE [id number] 07:54:29 Test Item Value Reference Range Interpretation Comments POC-GLUCOSE METER 133 mg/dL 70-110 H : TESTED A T [facility] 6720 (BEAKER) (test code = [facility], 1538) [address]: Telecommunications Technician/Techni bart ID = [id number] for SERAFIN [place]WOOD HEPATIC FUNCTION [id number] 05:39:39 Test Item Value Reference Range Interpretation [...] (test code = 44 U/L 6-55 347) Telecommunications Technician ID - KAYLEEN [id number] 05:39:38 Test Item Value Reference Range Interpretation Comments PHOSPHORUS (BEAKER) (test code = 2.9 mg/dL 2.3-4.7 604) Telecommunications Technician ID - KAYLEEN LBASIC METABOLIC [id number] 05:39:37 Test Item Value Reference Range Interpretation [...] S NOT APPLICABLE FOR DIALYSIS PATIEN TS. Telecommunications Technician ID - KAYLEEN [id number] 05:39:37 Test Item Value Reference Range Interpretation Comments MAGNESIUM (BEAKER) (test code = 2.2 mg/dL 1.6-2.6 627) Telecommunications Technician ID - KAYLEEN LLACTIC ACID, [id number] 05:27:27 Test Item Value Reference Range Interpretation Comments LACTATE BLOOD 0.9 mmol/L 0.5-2.2 Specimen sligh tly ARTERIAL (2) (BEAKER) hemoly zed (test code = 2874) Telecommunications Technician ID - KAYLEEN [id number] 05:14:24 Test Item Value Reference Range Interpretation [...] RANGESSTANDARD DOSE: 2.0 - 3.0 Includes: PROPHYLAXIS for venous thrombosis, systemic embolization; TREATMENT for venous thrombosis and/or pulmonary embolus.HIGH RISK: Target INR is 2.5-3.5 for patients with mechanical heart valves.OXYGEN SATURATION, [id number] 05:07:37 Test Item Value Reference Range Interpretation Comments O2 SATURATION (MEASURED) (BEAKER) 77.5 % (test code = 1455) CBC W/PLT COUNT & AUTO [id number] 05:07:13 Test Item Value Reference Range Interpretation [...] = 2801) RAD, CHEST, 1 VIEW, NON [id number] 05:07:00while patient is intubated or has chest tubes.Reason for exam:->Status post CV SurgeryShould thisbe performed at the bedside?->[facility] 1945 Sex: MFINAL REPORT RAD, CHEST, 1 VIEW, NON DEPT INDICATION: Status post CV Surgery COMPARISON: Prior day's exam FINDINGS: Portable frontal view of the chest. IMPRESSION: Support Lines: Stable. Lungs and pleura: Unchanged bibasilar airspace and pleural opacities. No pneumothorax. Heart and mediastinum: Stable contours. Additional findings: None. Signed: Halley Osullivan MDReport Verified Date /Time: 09/10/2021 05:07:16 CALCIUM, [id number] 05:03:15 Test Item Value Reference Range Interpretation Comments CALCIUM IONIZED (BEAKER) (test 1.08 mmol/L 1.12-1.27 L code = 698) PH, BLOOD (BEAKER) (test code = 7.51 1810) BLOOD GAS, [id number] 05:00:52 Test Item Value Reference Range Interpretation [...] (BEAKER) (test code = 1819) 21.0 POCT-GLUCOSE [id number] 22:18:19 Test Item Value Reference Range Interpretation Comments POC-GLUCOSE METER 157 mg/dL 70-110 H : TESTED A T [facility] 6720 (BEAKER) (test code = [place], 1538) [address]: Telecommunications Technician/Techni bart ID = [id number] for VISHAL GAINES CALCIUM, [id number] 20:12:13 Test Item Value Reference Range Interpretation Comments CALCIUM IONIZED (BEAKER) (test 1.11 mmol/L 1.12-1.27 L code = 698) PH, BLOOD (BEAKER) (test code = 7.47 1810) OXYGEN SATURATION, [id number] 20:12:01 Test Item Value Reference Range Interpretation Comments O2 SATURATION (MEASURED) (BEAKER) 78.0 % (test code = 1455) LACTIC ACID, [id number] 20:12:01 Test Item Value Reference Range Interpretation Comments LACTATE BLOOD 1.4 mmol/L 0.5-2.2 Specimen sligh tly ARTERIAL (2) (BEAKER) hemoly zed (test code = 2874) Telecommunications Technician ID - [id number] 20:09:04 Test Item Value Reference Range Interpretation Comments PHOSPHORUS (BEAKER) 2.7 mg/dL 2.3-4.7 Specimen slightly (test code = 604) hemolyzed Telecommunications Technician ID - DBBASIC METABOLIC [id number] 20:09:04 Test Item Value Reference Range Interpretation [...] S NOT APPLICABLE FOR DIALYSIS PATIEN TS. Telecommunications Technician ID - [id number] 20:09:03 Test Item Value Reference Range Interpretation Comments MAGNESIUM (BEAKER) 2.1 mg/dL 1.6-2.6 Specimen slightly (test code = 627) hemolyzed Telecommunications Technician ID - DBHEMOGLOBIN AND [id number] 19:51:19 Test Item Value Reference Range Interpretation Comments HEMOGLOBIN (BEAKER) (test code = 8.3 GM/DL 13.7-17.5 L 410) HEMATOCRIT (BEAKER) (test code = 25.6 % 40.1-51.0 L 411) Telecommunications Technician ID - [id number] SATURATION, [id number] 09:51:00 Test Item Value Reference Range Interpretation Comments O2 SATURATION (MEASURED) (BEAKER) 67.0 % (test code = 1455) RAD, CHEST, 1 VIEW, NON [id number] 06:36:00while patient is intubated or has chest tubes.Reason for exam:->Status post CV SurgeryShould thisbe performed at the bedside?->Yes [facility] 1945 Sex: MFINAL REPORT RAD, CHEST, 1 VIEW, NON DEPT INDICATION: Status post CV Surgery COMPARISON: Prior day's exam FINDINGS: Portable frontal view of the chest. IMPRESSION: Support Lines: Right chest tube. [place] tip overlies the pulmonary outflow tract. Lungs and pleura: Retrocardiac opacity representing singly or in combination airspace disease, atelectasis and/or effusion. Bibasilar interstitial thickening is unchanged. No significant pneumothorax. Heart and mediastinum: Stable contours. Stable surgical changes. Additional findings: None. Signed: Gaby Cordero MDReplauri Verified Date/Time: 09/09/2021 06:36:02 OXYGEN SATURATION, [id number] 05:12:23 Test Item Value Reference Range Interpretation Comments O2 SATURATION (MEASURED) (BEAKER) 98.5 % (test code = 1455) [id number] 03:20:36 Test Item Value Reference Range Interpretation Comments PHOSPHORUS (BEAKER) (test code = 2.6 mg/dL 2.3-4.7 604) Telecommunications Technician ID - MARZENA [id number] 03:20:35 Test Item Value Reference Range Interpretation Comments MAGNESIUM (BEAKER) (test code = 2.1 mg/dL 1.6-2.6 627) Telecommunications Technician ID - MARZENA MCOMPREHENSIVE METABOLIC [id number] 03:20:34 Test Item Value Reference Range Interpretation [...] S NOT APPLICABLE FOR DIALYSIS PATIEN TS. Telecommunications Technician ID - MARZENA MPOCT-GLUCOSE [id number] 03:04:55 Test Item Value Reference Range Interpretation Comments POC-GLUCOSE METER 143 mg/dL 70-110 H : TESTED A T [facility] 6720 (BEAKER) (test code = [place], 1538) [address]: Telecommunications Technician/Techni bart ID = [id number] for Cathleen Acuña BLOOD GAS, [id number] 02:57:44 Test Item Value Reference Range Interpretation [...] (BEAKER) (test code = 1819) 28.0 CBC (Hemogram only)2021-09-09 02:57:29 Test Item Value Reference Range Interpretation Comments WBC (test code = 6690-2) 14.5 See_Comment H [A utomated message] The system Mocapay generated this result transmitted ref erence range: 3.5 - 10 .5 K/L. The refe rence range was not u sed to interpret this result as normal/abnor mal. RBC (test code = 789-8) 3.05 See_Comment L [Au tomated message] The system Mocapay generated this result transmitted ref erence range: 4.63 - 6 .08 M/L. The refe rence range was not u sed to interpret this result as normal/abnor mal. MCHC (test code = 786-4) 31.7 See_Comment L [A utomated message] The system Mocapay generated this result transmitted ref erence range: 32.3 - 3 6.5 GM/DL. The refe rence range was not u sed to interpret this result as normal/abnor mal. Hematocrit (test code = 26.5 % 40.1-51.0 L 4544-3) MCV (test code = 787-2) 86.9 fL 79.0-92.2 MCH (test code = 785-6) 27.5 pg 25.7-32.2 RDW (test code = 788-0) 20.4 % 11.6-14.4 H Platelets (test code = 150 See_Comment [Aut omated message] 777-3) The system Mocapay generated this result transmitted ref erence range: 150 - 45 0 K/CU MM. The referen ce range was not u sed to interpret this result as normal/abnor mal. MPV (test code = 10.7 fL 9.4-12.4 46589-3) nRBC (test code = 413) 0 See_Comment [Aut omated message] The system Mocapay generated this result transmitted ref erence range: 0 - 0 /1 00 WBC. The refere nce range was not u sed to interpret this result as normal/abnor mal. Lab Interpretation (test Abnormal code = 89718-9) [facility] (HEMOGRAM ONLY)2021-09-09 02:57:29 Test Item Value Reference [...] 0-0 (BEAKER) (test code = 413) CALCIUM, [id number] 02:57:28 Test Item Value Reference Range Interpretation Comments CALCIUM IONIZED (BEAKER) (test 1.12 mmol/L 1.12-1.27 code = 698) PH, BLOOD (BEAKER) (test code = 7.46 1810) POCT-GLUCOSE [id number] 21:16:02 Test Item Value Reference Range Interpretation Comments POC-GLUCOSE METER 169 mg/dL 70-110 H : TESTED A T [facility] 6720 (BEAKER) (test code = [facility], 1538) [address]: Telecommunications Technician/Techni bart ID = [id number] for Walker Page POCT-GLUCOSE [id number] 21:12:37 Test Item Value Reference Range Interpretation Comments POC-GLUCOSE METER 140 mg/dL 70-110 H : TESTED A T [facility] 6720 (BEAKER) ([facility], = 1538) [address]: Telecommunications Technician/Techni bart ID = [id number] for SEAN REED (contract)NICHELLE 2D Echo W/Doppler(CW/PW/Color)2021-09-08 15:37:08Ejection FractionSLE ECHO HEARTLAB MKCKESSON [facility]PAAl[facility] CenterPOTASSIUM2022-01-21 15:32:47 Test Item Value Reference Range Interpretation Comments POTASSIUM (BEAKER) 4.3 meq/L 3.5-5.1 Specimen slightly (test code = 379) hemolyzed Telecommunications Technician ID - PIAYA [id number] 15:32:46 Test Item Value Reference Range Interpretation Comments MAGNESIUM (BEAKER) 2.0 mg/dL 1.6-2.6 Specimen slightly (test code = 627) hemolyzed Telecommunications Technician ID - PIAYA LCBC W/PLT COUNT & AUTO [id number] 15:19:56 Test Item Value Reference Range Interpretation [...] PERCENT (BEAKER) (test code = 2801) CALCIUM, [id number] 15:12:46 Test Item Value Reference Range Interpretation Comments CALCIUM IONIZED (BEAKER) (test 1.11 mmol/L 1.12-1.27 L code = 698) PH, BLOOD (BEAKER) (test code = 7.48 1810) POCT-GLUCOSE [id number] 14:49:24 Test Item Value Reference Range Interpretation Comments POC-GLUCOSE METER 102 mg/dL 70-110 : TESTED A T [facility] 6720 (BEAKER) (test code [facility], = 1538) 85[address]: Telecommunications Technician/Techni bart ID = [id number] for SEAN REED (contract), NICHELLE OSLAVA POCT-GLUCOSE [id number] 10:32:59 Test Item Value Reference Range Interpretation Comments POC-GLUCOSE METER 104 mg/dL 70-110 : TESTED A T [facility] 6720 (BEAKER) (test code [facility], = 1538) 35868: Telecommunications Technician/Techni bart ID = [id number] for SEAN REED (contract), NICHELLE OSLAVA HEMOGLOBIN AND [id number] 10:32:38 Test Item Value Reference Range Interpretation Comments HEMOGLOBIN (BEAKER) (test code = 7.7 GM/DL 13.7-17.5 L 410) HEMATOCRIT (BEAKER) (test code = 25.3 % 40.1-51.0 L 411) Telecommunications Technician ID - 6000POCT-GLUCOSE [id number] 09:26:31 Test Item Value Reference Range Interpretation Comments POC-GLUCOSE METER 96 mg/dL 70-110 : TESTED A T [facility] 6720 (BEAKER) (test code = [facility], 1538) [address]: Telecommunications Technician/Techni bart ID = [id number] for SEANAMA REED (contract), NICHELLE OSLAVA LACTIC ACID, [id number] 09:18:52 Test Item Value Reference Range Interpretation Comments LACTATE BLOOD ARTERIAL (2) 1.7 mmol/L 0.5-2.2 (BEAKER) (test code = 2874) Telecommunications Technician ID - DBOXYGEN SATURATION, [id number] 09:17:35 Test Item Value Reference Range Interpretation Comments O2 SATURATION (MEASURED) (BEAKER) 60.3 % (test code = 1455) POCT-GLUCOSE [id number] 09:09:11 Test Item Value Reference Range Interpretation Comments POC-GLUCOSE METER 101 mg/dL 70-110 : TESTED A T [facility] 6720 (BEAKER) (test code [place], = 1538) [address]: Telecommunications Technician/Techni bart ID = [id number] for SEAN REED (contract)NICHELLE BLOOD GAS, [id number] 09:08:49 Test Item Value Reference Range Interpretation [...] FIO2 (BEAKER) (test code = 1819) 28.0 Blood Culture - Routine (Left Venipuncture)2021-09-08 08:00:53 Test Item Value Reference Range Interpretation Comments Result (test code = No growth in 5 days 6463-4) [id number] 08:00:53 Test Item Value Reference Range Interpretation Comments CULTURE (BEAKER) (test No growth in 5 days code = 1095) BLOOD [id number] 08:00:52 Test Item Value Reference Range Interpretation Comments CULTURE (BEAKER) (test No growth in 5 days code = 1095) [id number] 07:57:26 Test Item Value Reference Range Interpretation Comments Scan Result (test code = See scanned report [id number]) EMERSON (test code = EMERSON) See scanned report [facility] CenterM[facility] [id number] 07:57:26 Test Item Value Reference Range Interpretation Comments SCAN RESULT (test code = See scanned report [id number]) See scanned reportLACTIC ACID, [id number] 06:32:27 Test Item Value Reference Range Interpretation Comments LACTATE BLOOD ARTERIAL (2) 3.0 mmol/L 0.5-2.2 H (BEAKER) (test code = 2874) Telecommunications Technician ID - PIAYA LPOC ACTIVATED CLOTTING [id number] 06:31:19 Test Item Value Reference Range Interpretation Comments Activated Clotting Time 142 sec : 74 -137 seconds, (test code = 441) Baseline: TESTED AT [address], [address]: Telecommunications Technician/Techni bart ID = [id number] for Sa enz, Angela [id number] 06:31:19 Test Item Value Reference Range Interpretation Comments ACTIVATED CLOTTING TIME 142 sec : 74 -137 seconds, (BEAKER) (test code = Baseli ne: TESTED AT 441) [address], [address]: Telecommunications Technician/Techni bart ID = [id number] for Sa enz, Angela [id number] 06:31:17 Test Item Value Reference Range Interpretation Comments ACTIVATED CLOTTING TIME 785 sec : 74 -137 seconds, (BEAKER) (test code = Baseli ne: TESTED AT 441) [address], [address]: Telecommunications Technician/Techni bart ID = [id number] for Sa enz, Angela [id number] 06:31:17 Test Item Value Reference Range Interpretation Comments ACTIVATED CLOTTING TIME 964 sec : 74 -137 seconds, (BEAKER) (test code = Baseli ne: TESTED AT 441) [address], [address]: Telecommunications Technician/Techni bart ID = [id number] for Sa enz, Angela [id number] 06:31:16 Test Item Value Reference Range Interpretation Comments ACTIVATED CLOTTING TIME > sec : 74 -137 seconds, (BEAKER) (test code = Baseli ne: TESTED AT 441) [address], [address]: Telecommunications Technician/Techni bart ID = [id number] for Sa enz, Angela [id number] 06:31:15 Test Item Value Reference Range Interpretation Comments ACTIVATED CLOTTING TIME > sec : 74 -137 seconds, (BEAKER) (test code = Baseli ne: TESTED AT 441) [address], [address]: Telecommunications Technician/Techni bart ID = [id number] for Sa enz, Angela [id number] 06:31:14 Test Item Value Reference Range Interpretation Comments ACTIVATED CLOTTING TIME 708 sec : 74 -137 seconds, (BEAKER) (test code = Jake ne: TESTED AT 441) [facility] 6720 [facility], [address] 30: Telecommunications Technician/Techni bart ID = [id number] for Angela Paniagua [id number] 06:31:13 Test Item Value Reference Range Interpretation Comments ACTIVATED CLOTTING TIME 154 sec : 74 -137 seconds, (BEAKER) (test code = Jake ne: TESTED AT 441) [facility] 6720 [facility], [address] 30: Telecommunications Technician/Techni bart ID = [id number] for Angela Paniagua POCT-GLUCOSE [id number] 06:26:19 Test Item Value Reference Range Interpretation Comments POC-GLUCOSE METER 117 mg/dL 70-110 H : TESTED A T [facility] 6720 (BEAKER) (test code = [facility], 1538) [address]: Telecommunications Technician/Techni bart ID = [id number] for La nate Jane HGB/HCT (H&H)-Stat [id number] 06:21:12 Test Item Value Reference Range Interpretation Comments Hemoglobin (test code = 8.3 See_Comment L [Au tomated message] 786-4) The system Mocapay generated this result transmitted ref erence range: 13.0 - 1 6.8 GM/DL. The refe rence range was not u sed to interpret this result as normal/abnor mal. Hematocrit (test code = 24.0 % 40.0-50.0 L 4544-3) Lab Interpretation (test Abnormal code = 38022-1) [facility]Stat [id number] 06:21:12 Test Item Value Reference Range Interpretation Comments Glucose (test code = 2345-7) 123 mg/dL 70-110 H Lab Interpretation (test code = Abnormal 63987-0) [facility] CenterGLU[facility]SE-STAT [id number] 06:21:12 Test Item Value Reference Range Interpretation Comments GLUCOSE RANDOM (BEAKER) (test code 123 mg/dL 70-110 H = 652) HGB/HCT (H&H) - STAT [id number] 06:21:12 Test Item Value Reference Range Interpretation Comments HEMOGLOBIN (BEAKER) (test code = 8.3 GM/DL 13.0-16.8 L 410) HEMATOCRIT (BEAKER) (test code = 24.0 % 40.0-50.0 L 411) BLOOD GAS, [id number] 06:21:11 Test Item Value Reference Range Interpretation [...] FIO2 (BEAKER) (test code = 1819) 40.0 Potassium-Stat [id number] 06:19:05 Test Item Value Reference Range Interpretation Comments Potassium (test code = 2823-3) 4.1 meq/L 3.6-5.5 Lab Interpretation (test code = Normal 38378-5) [facility] CenterPOT[facility]UM-STAT [id number] 06:19:05 Test Item Value Reference Range Interpretation Comments POTASSIUM (BEAKER) (test code = 4.1 meq/L 3.6-5.5 379) Sodium Na-Stat [id number] 06:19:04 Test Item Value Reference Range Interpretation Comments Sodium (test code = 2951-2) 140 meq/L 136-145 Lab Interpretation (test code = Normal 84807-3) [facility] [id number] 06:19:04 Test Item Value Reference Range Interpretation Comments SODIUM (BEAKER) (test code = 381) 140 meq/L 136-145 POCT-GLUCOSE [id number] 06:03:00 Test Item Value Reference Range Interpretation Comments POC-GLUCOSE METER 117 mg/dL 70-110 H : TESTED A T [facility] 6720 (BEAKER) (test code = [place], 1538) [address]: Telecommunications Technician/Techni bart ID = [id number] for Jane Payne POCT-GLUCOSE [id number] 04:27:30 Test Item Value Reference Range Interpretation Comments POC-GLUCOSE METER 131 mg/dL 70-110 H : TESTED A T [facility] 6720 (BEAKER) (test code = [facility], 1538) [address]: Telecommunications Technician/Techni bart ID = [id number] for Jane Payne HGB/HCT (H&H) - STAT [id number] 04:22:31 Test Item Value Reference Range Interpretation Comments HEMOGLOBIN (BEAKER) (test code = 8.5 GM/DL 13.0-16.8 L 410) HEMATOCRIT (BEAKER) (test code = 25.0 % 40.0-50.0 L 411) BLOOD GAS, [id number] 04:22:30 Test Item Value Reference Range Interpretation [...] (BEAKER) (test code = 1819) 40.0 GLUCOSE-STAT [id number] 04:22:30 Test Item Value Reference Range Interpretation Comments GLUCOSE RANDOM (BEAKER) (test code 145 mg/dL 70-110 H = 652) OXYGEN SATURATION, [id number] 04:22:06 Test Item Value Reference Range Interpretation Comments O2 SATURATION (MEASURED) (BEAKER) 70.0 % (test code = 1455) SODIUM NA-STAT [id number] 04:21:07 Test Item Value Reference Range Interpretation Comments SODIUM (BEAKER) (test code = 381) 138 meq/L 136-145 POTASSIUM-STAT [id number] 04:21:07 Test Item Value Reference Range Interpretation Comments POTASSIUM (BEAKER) (test code = 4.0 meq/L 3.6-5.5 379) RAD, CHEST, 1 VIEW, NON [id number] 04:06:00while patient is intubated or has chest tubes.Reason for exam:->Status post CV SurgeryShould thisbe performed at the bedside?->Yes [facility] : 1945 Sex: MFINAL REPORT RAD, CHEST, 1 VIEW, NON DEPT INDICATION: Status post CV Surgery COMPARISON: Prior day's exam FINDINGS: Portable frontal view of the chest. IMPRESSION: Support Lines: Slight repositioning of the right IJ [place] catheter tip overlying the main pulmonary artery. Lungs and pleura: Unchanged airspace and pleural opacities. No pneumothorax.Heart and mediastinum: Stable co ntours. Stable surgical changes.Additional findings: None. Signed: Rm Nassar Verified Date/Time: 09/08/2021 04:06:10 LACTIC ACID, ARTERIAL 2021-09-08 03:28:09 Test Item Value Reference Range Interpretation Comments LACTATE BLOOD ARTERIAL (2) 4.4 mmol/L 0.5-2.2 HH (BEAKER) (test code = 2874) Telecommunications Technician ID - DBPOCT-GLUCOSE [id number] 03:20:20 Test Item Value Reference Range Interpretation Comments POC-GLUCOSE METER 127 mg/dL 70-110 H : TESTED A T [facility] 6720 (BEAKER) (test code = [place], 1538) [address]: Telecommunications Technician/Techni bart ID = [id number] for Jane Payne CBC W/PLT COUNT & AUTO [id number] 03:14:20 Test Item Value Reference Range Interpretation Comments WHITE BLOOD CELL COUNT (BEAKER) 10.5 K/ L 3.5-10.5 (test code = [...] 0-1 PERCENT (BEAKER) (test code = 2801) [id number] 03:02:27 Test Item Value Reference Range Interpretation Comments PHOSPHORUS (BEAKER) (test code = 2.5 mg/dL 2.3-4.7 604) Telecommunications Technician ID - [id number] 03:02:26 Test Item Value Reference Range Interpretation Comments MAGNESIUM (BEAKER) (test code = 2.3 mg/dL 1.6-2.6 627) Telecommunications Technician ID - DBCOMPREHENSIVE METABOLIC [id number] 03:02:25 Test Item Value Reference Range Interpretation [...] 347) EGFR (BEAKER) (test 78 mL/min/1.73 ESTIMA DANTE GFR IS code = 1092) sq m NOT ACCURATE CREATININE CLEARANCE IN PREDICTING GLOMERULAR FILTRATION RATE . ESTIMATED GFR I S NOT APPLICABLE FOR DIALYSIS PATIEN TS. Telecommunications Technician ID - DBCALCIUM, [id number] 02:42:47 Test Item Value Reference Range Interpretation Comments CALCIUM IONIZED (BEAKER) (test 1.09 mmol/L 1.12-1.27 L code = 698) PH, BLOOD (BEAKER) (test code = 7.51 1810) GLUCOSE-STAT [id number] 02:42:45 Test Item Value Reference Range Interpretation Comments GLUCOSE RANDOM (BEAKER) (test code 162 mg/dL 70-110 H = 652) HGB/HCT (H&H) - STAT [id number] 02:42:45 Test Item Value Reference Range Interpretation Comments HEMOGLOBIN (BEAKER) (test code = 8.3 GM/DL 13.0-16.8 L 410) HEMATOCRIT (BEAKER) (test code = 24.0 % 40.0-50.0 L 411) BLOOD GAS, [id number] 02:42:44 Test Item Value Reference Range Interpretation [...] (test code = 1819) 40.0 SODIUM NA-STAT [id number] 02:39:19 Test Item Value Reference Range Interpretation Comments SODIUM (BEAKER) (test code = 381) 138 meq/L 136-145 POTASSIUM-STAT [id number] 02:39:19 Test Item Value Reference Range Interpretation Comments POTASSIUM (BEAKER) (test code = 3.8 meq/L 3.6-5.5 379) POCT-GLUCOSE [id number] 02:22:45 Test Item Value Reference Range Interpretation Comments POC-GLUCOSE METER 148 mg/dL 70-110 H : TESTED A T [facility] 6720 (BEAKER) ([facility] = [facility], 1538) [address]: Telecommunications Technician/Techni bart ID = [id number] for Jane Payne OXYGEN SATURATION, [id number] 01:24:13 Test Item Value Reference Range Interpretation Comments O2 SATURATION (MEASURED) (BEAKER) 71.6 % (test code = 1455) POCT-GLUCOSE [id number] 01:14:53 Test Item Value Reference Range Interpretation Comments POC-GLUCOSE METER 159 mg/dL 70-110 H : TESTED A T [facility] 6720 (BEAKER) (test code = [facility] Srik[facility], 1538) [id number]: Telecommunications Technician/Techni bart ID = [id number] for Jane Payne POCT-GLUCOSE [id number] 00:12:10 Test Item Value Reference Range Interpretation Comments POC-GLUCOSE METER 170 mg/dL 70-110 H : TESTED A T [facility] 6720 (BEAKER) (test code = [facility], 1538) [id number]: Telecommunications Technician/Techni bart ID = [id number] for Jane Payne HGB/HCT (H&H) - STAT [id number] 00:01:07 Test Item Value Reference Range Interpretation Comments HEMOGLOBIN (BEAKER) (test code = 8.6 GM/DL 13.0-16.8 L 410) HEMATOCRIT (BEAKER) (test code = 25.0 % 40.0-50.0 L 411) BLOOD GAS, [id number] 00:01:06 Test Item Value Reference Range Interpretation [...] (BEAKER) (test code = 1819) 40.0 GLUCOSE-STAT [id number] 00:01:06 Test Item Value Reference Range Interpretation Comments GLUCOSE RANDOM (BEAKER) (test code 185 mg/dL 70-110 H = 652) POTASSIUM-STAT [id number] 00:00:02 Test Item Value Reference Range Interpretation Comments POTASSIUM (BEAKER) (test code = 4.0 meq/L 3.6-5.5 379) SODIUM NA-STAT [id number] 00:00:01 Test Item Value Reference Range Interpretation Comments SODIUM (BEAKER) (test code = 381) 138 meq/L 136-145 POCT-GLUCOSE [id number] 23:16:14 Test Item Value Reference Range Interpretation Comments POC-GLUCOSE METER 169 mg/dL 70-110 H : TESTED A T [facility] 6720 ([facility]) (test code = [facility], 1538) [id number]: Telecommunications Technician/Techni bart ID = [id number] for La nate, Jane POCT-GLUCOSE [id number] 22:48:00 Test Item Value Reference Range Interpretation Comments POC-GLUCOSE METER 186 mg/dL 70-110 H : TESTED A T [facility] 6720 ([facility]) (test code = [facility], 1538) 34529: Telecommunications Technician/Techni bart ID = [id number] for La nate, Jane LACTIC ACID, [id number] 22:32:03 Test Item Value Reference Range Interpretation Comments LACTATE BLOOD ARTERIAL (2) 7.7 mmol/L 0.5-2.2 HH (BEAKER) (test code = 2874) Telecommunications Technician ID - DBSpecimen slightly [id number] 22:20:51 Test Item Value Reference Range Interpretation Comments PARTIAL THROMBOPLASTIN TIME 50.9 seconds 22.5-36.0 H (BEAKER) (test code = 760) POCT-GLUCOSE [id number] 22:10:53 Test Item Value Reference Range Interpretation Comments POC-GLUCOSE METER 203 mg/dL 70-110 H : TESTED A T [facility] 6720 (BEAKER) (test code = [facility] [place], 1538) [id number]: Telecommunications Technician/Techni bart ID = [id number] for Jane Payne HGB/HCT (H&H) - STAT [id number] 22:10:05 Test Item Value Reference Range Interpretation Comments HEMOGLOBIN (BEAKER) (test code = 8.4 GM/DL 13.0-16.8 L 410) HEMATOCRIT (BEAKER) (test code = 25.0 % 40.0-50.0 L 411) GLUCOSE-STAT [id number] 22:10:04 Test Item Value Reference Range Interpretation Comments GLUCOSE RANDOM (BEAKER) (test code 203 mg/dL 70-110 H = 652) BLOOD GAS, [id number] 22:10:03 Test Item Value Reference Range Interpretation [...] (test code = 1819) 40.0 SODIUM NA-STAT [id number] 22:09:47 Test Item Value Reference Range Interpretation Comments SODIUM (BEAKER) (test code = 381) 140 meq/L 136-145 POTASSIUM-STAT [id number] 22:09:47 Test Item Value Reference Range Interpretation Comments POTASSIUM (BEAKER) (test code = 3.8 meq/L 3.6-5.5 379) BASIC METABOLIC [id number] 21:03:11 Test Item Value Reference Range Interpretation [...] 697) EGFR (BEAKER) (test 62 mL/min/1.73 ESTIMA DANTE GFR IS code = 1092) sq m NOT ACCURATE CREATININE CLEARANCE IN PREDICTING GLOMERULAR FILTRATION RATE . ESTIMATED GFR I S NOT APPLICABLE FOR DIALYSIS PATIEN TS. Telecommunications Technician ID - MARZENA MHGB/HCT (H&H) - STAT [id number] 20:56:34 Test Item Value Reference Range Interpretation Comments HEMOGLOBIN (BEAKER) (test code = 9.2 GM/DL 13.0-16.8 L 410) HEMATOCRIT (BEAKER) (test code = 27.0 % 40.0-50.0 L 411) GLUCOSE-STAT [id number] 20:56:33 Test Item Value Reference Range Interpretation Comments GLUCOSE RANDOM (BEAKER) (test code 216 mg/dL 70-110 H = 652) BLOOD GAS, [id number] 20:56:32 Test Item Value Reference Range Interpretation [...] (BEAKER) (test code = 1819) 40.0 POTASSIUM-STAT [id number] 20:55:37 Test Item Value Reference Range Interpretation Comments POTASSIUM (BEAKER) (test code = 3.9 meq/L 3.6-5.5 379) SODIUM NA-STAT [id number] 20:55:36 Test Item Value Reference Range Interpretation Comments SODIUM (BEAKER) (test code = 381) 138 meq/L 136-145 LACTIC ACID, [id number] 19:32:31 Test Item Value Reference Range Interpretation Comments LACTATE BLOOD ARTERIAL (2) 9.1 mmol/L 0.5-2.2 HH (BEAKER) (test code = 2874) Telecommunications Technician ID - MARZENA MCBC (HEMOGRAM ONLY)2021-09-07 19:15:57 [...] (BEAKER) (test code = 413) BLOOD GAS, [id number] 19:14:26 Test Item Value Reference Range Interpretation [...] (test code = 1819) 60.0 OXYGEN SATURATION, [id number] 19:14:15 Test Item Value Reference Range Interpretation Comments O2 SATURATION (MEASURED) (BEAKER) 72.3 % (test code = 1455) POCT-GLUCOSE [id number] 18:29:54 Test Item Value Reference Range Interpretation Comments POC-GLUCOSE METER 170 mg/dL 70-110 H : TESTED A T [facility] 6720 (BEAKER) (test code = [facility] [place], 1538) [id number]: Telecommunications Technician/Techni bart ID = [id number] for SHELLEY REYES CT, CTA, [id number] 17:57:00Unlisted Reason for Exam - Click Yes and Enter Reason Below->YesUnlisted Reason for Exam->Pre op evaluation of aorta, assessment prior to cardiac surgery. need to see distance of aorta from chest wall and calcification of aorta [facility]ENTER[facility] : 1945 Sex: MAddendum BeginsREPORT STATUS:A Addendum: I agree with the previously described non vascular findings by Dr. Humphreys with the following additions: Hyperdense material noted within thegallbladder on the precontrast images which may represent vicarious excretion of contrast material versus sludge. Diverticula noted within the sigmoid colon without evidence for acute diverticulitis. Signed: Neeraj Lucio MDReport Verified Date/Time: 09/07/2021 17:57:58 Reading Location: [facility] Radiology Reading RoomAddendum EndsFINAL REPORT CTA Aorta - Chest, Abdomen, and Pelvis:09/04/2021 4:13 PM. Comparison: None available. Clinical History: 76 years old Male with severe mitral valve disease here for potential robotically assisted/minimally invasive mitral valve repair. The study is performed to assess vascular access for robotic assistance. Technique: Spiral acquisition before and during intravenous contrast administration using a (Siemens Somatom force scanner). Images were obtained before and during the dynamic passage of intravenous contrast material. Multi-planar 3-D volume-rendering reconstruction was performed using an independent workstation interactively by the interpreting physician as well as the 3-D specialist for optimal visualization of the thoracoabdominalaorta, the pelvic arteries as well as its proximal branches. Please refer to the contrast sheet scanned in the EPIC system for the amount and route of contrast given. This exam was performed according to our departmental dose-optimisation programme, which includes automated exposure control, adjustment of the mA and/or kV according to patient size and/or use of iterative reconstruction technique. Dose modulation, iterative reconstruction, and/or weight based adjustment of the mA/kV was utilized to [...] aorta. There is no acute aortic pathology. [employer] dimensions of the thoracic aorta are as [...] cm at the mesenteric segment*1.8 cm at the renal segment*1.3 x 1.3 cm at the mid infrarenal segment*1.4 x 1.4 cm at the aortic bifurcation The celiac axis, SMA, and KERRI are patent. There are two left and one right renal artery with mild to moderate calcific atherosclerotic changes involving the proximal segment of the left renal arteries, however with normal contrast opacificationand no significant luminal stenosis. The pelvic arteries are tortuous, with mild calcific atherosclerotic changes predominantly involving [...] atrial, severe left ventricular and mild right atrialenlargement. 2. The thoracic aorta is normal in course and caliber with mild calcification involvingthe arch and descending thoracic aorta. The abdominal aorta is normal in course and caliber with mild to moderate calcification predominantly involving the infrarenal segment of the abdominal aorta. 3.The pelvic arteries are tortuous, mild calcific atherosclerotic changes involving the bilateral common iliac arteries, but normal in caliber. 4. Bilateral groundglass opacification and moderate right and small left pleural effusions with associated atelectasis of the lung benson, all consistent with pu lmonary congestion. 5. The visualized thyroid gland is remarkable for bilateral nodules in both the thyroid lobes with the largest measuring 1 cm in the left thyroid lobe, dedicated ultrasound is recommended given the size of the lesion. Signed: Bhargav Humphreys [facility] Verified Date/Time: 0:03:27 CT, CTA [id number] 17:57:00Unlisted Reason for Exam - Click Yes and Enter Reason Below->YesUnlisted Reason for Exam->Evaluate descending aorta for calcification down to femoral vessels, prior to cannulation of femoral artery and vein for cardiac surgery. [facility] CENTERName: CADEN GILES : 1945 Sex: MAddendum BeginsREPORT STATUS:A Addendum: I agree with the previously described non vascular findings by Dr. Humphreys with the following additions: Hyperdense material noted within thegallbladder on the precontrast images which may represent vicarious excretion of contrast material versus sludge. Diverticula noted within the sigmoid colon without evidence for acute diverticulitis. Signed: Neeraj Lucio MDReport Verified Date/Time: 09/07/2021 17:57:58 Reading Location: [facility] Radiology Reading RoomAddendum EndsFINAL REPORT CTA Aorta - Chest, Abdomen, and Pelvis:09/04/2021 4:13 PM. Comparison: None available. Clinical History: 76 years old Male with severe mitral valve disease here for potential robotically assisted/minimally invasive mitral valve repair. The study is performed to assess vascular access for robotic assistance. Technique: Spiral acquisition before and during intravenous contrast administration using a (Siemens Somatom force scanner). Images were obtained before and during the dynamic passage of intravenous contrast material. Multi-planar 3-D volume-rendering reconstruction was performed using an independent workstation interactively by the interpreting physician as well as the 3-D specialist for optimal visualization of the thoracoabdominalaorta, the pelvic arteries as well as its proximal branches. Please refer to the contrast sheet scanned in the EPIC system for the amount and route of contrast given. This exam was performed according to our departmental dose-optimisation programme, which includes automated exposure control, adjustment of the mA and/or kV according to patient size and/or use of iterative reconstruction technique. Dose modulation, iterative reconstruction, and/or weight based adjustment of the mA/kV was utilized to [...] aorta. There is no acute aortic pathology. [employer] dimensions of the thoracic aorta are as [...] cm at the mesenteric segment*1.8 cm at the renal segment*1.3 x 1.3 cm at the mid infrarenal segment*1.4 x 1.4 cm at the aortic bifurcation The celiac axis, SMA, and KERRI are patent. There are two left and one right renal artery with mild to moderate calcific atherosclerotic changes involving the proximal segment of the left renal arteries, however with normal contrast opacificationand no significant luminal stenosis. The pelvic arteries are tortuous, with mild calcific atherosclerotic changes predominantly involving [...] atrial, severe left ventricular and mild right atrialenlargement. 2. The thoracic aorta is normal in course and caliber with mild calcification involvingthe arch and descending thoracic aorta. The abdominal aorta is normal in course and caliber with mild to moderate calcification predominantly involving the infrarenal segment of the abdominal aorta. 3.The pelvic arteries are tortuous, mild calcific atherosclerotic changes involving the bilateral common iliac arteries, but normal in caliber. 4. Bilateral groundglass opacification and moderate right and small left pleural effusions with associated atelectasis of the lung benson, all consistent with pu lmonary congestion. 5. The visualized thyroid gland is remarkable for bilateral nodules in both the thyroid lobes with the largest measuring 1 cm in the left thyroid lobe, dedicated ultrasound is recommended given the size of the lesion. Signed: Bhargav Humphreys Verified Date/Time: 0:03:27 LACTIC ACID, [id number] 17:36:22 Test Item Value Reference Range Interpretation Comments LACTATE BLOOD 8.2 mmol/L 0.5-2.2 HH Specimen sligh tly ARTERIAL (2) (BEAKER) hemoly zed (test code = 2874) Telecommunications Technician ID - MARZENA MHGB/HCT (H&H) - STAT [id number] 17:15:52 Test Item Value Reference Range Interpretation Comments HEMOGLOBIN (BEAKER) (test code = 8.7 GM/DL 13.0-16.8 L 410) HEMATOCRIT (BEAKER) (test code = 26.0 % 40.0-50.0 L 411) GLUCOSE-STAT [id number] 17:15:51 Test Item Value Reference Range Interpretation Comments GLUCOSE RANDOM (BEAKER) (test code 179 mg/dL 70-110 H = 652) BLOOD GAS, [id number] 17:15:50 Test Item Value Reference Range Interpretation [...] (BEAKER) (test code = 1819) 40.0 POTASSIUM-STAT [id number] 17:15:06 Test Item Value Reference Range Interpretation Comments POTASSIUM (BEAKER) (test code = 3.6 meq/L 3.6-5.5 379) SODIUM NA-STAT [id number] 17:15:05 Test Item Value Reference Range Interpretation Comments SODIUM (BEAKER) (test code = 381) 138 meq/L 136-145 LACTIC ACID, [id number] 15:47:03 Test Item Value Reference Range Interpretation Comments LACTATE BLOOD 5.7 mmol/L 0.5-2.2 HH Specimen moder ately ARTERIAL (2) (BEAKER) hemoly zed (test code = 2874) Telecommunications Technician ID - MARZENA MBASIC METABOLIC [id number] 15:45:08 Test Item Value Reference Range Interpretation [...] 697) EGFR (BEAKER) (test 71 mL/min/1.73 ESTIMA DANTE GFR IS code = 1092) sq m NOT ACCURATE CREATININE CLEARANCE IN PREDICTING GLOMERULAR FILTRATION RATE . ESTIMATED GFR I S NOT APPLICABLE FOR DIALYSIS PATIEN TS. Telecommunications Technician ID - MARZENA [id number] 15:45:07 Test Item Value Reference Range Interpretation Comments PHOSPHORUS (BEAKER) 3.1 mg/dL 2.3-4.7 Specimen slightly (test code = 604) hemolyzed Telecommunications Technician ID - MARZENA [id number] 15:45:06 Test Item Value Reference Range Interpretation Comments MAGNESIUM (BEAKER) 2.9 mg/dL 1.6-2.6 H Specimen slightly (test code = 627) hemolyzed Telecommunications Technician ID - MARZENA MCBC W/PLT COUNT & AUTO [id number] 15:40:58 Test Item Value Reference Range Interpretation [...] 0-1 PERCENT (BEAKER) (test code = 2801) [id number] 15:37:40 Test Item Value Reference Range Interpretation [...] RANGESSTANDARD DOSE: 2.0 - 3.0 Includes: PROPHYLAXIS for venous thrombosis, systemic embolization; TREATMENT for venous thrombosis and/or pulmonary embolus.HIGH RISK: Target INR is 2.5-3.5 for patients with mechanical heart valves.[id number] 15:37:05 Test Item Value Reference Range Interpretation Comments Fibrinogen (test code = 2721-7) 466 mg/dl 225-434 H Lab Interpretation (test code = Abnormal 64165-9) [facility] 15:37:05 Test Item Value Reference Range Interpretation Comments FIBRINOGEN LEVEL (BEAKER) (test 466 mg/dl 225-434 H code = 658) PROTHROMBIN [id number] 15:36:48 Test Item Value Reference Range Interpretation Comments PROTIME (BEAKER) 18.7 seconds 11.9-14.2 H (test code = 759) INR (BEAKER) (test 1.58 See_Comment [Automat ed message] code = 370) The system Mocap[employer] generated this result transmitted ref erence range: <=5.90. The reference range was not used to int erpret this result as normal/abnormal . RECOMMENDED COUMADIN/WARFARIN INR THERAPY RANGESSTANDARD DOSE: 2.0 - 3.0 Includes: PROPHYLAXIS for venous thrombosis, systemic embolization; TREATMENT for venous thrombosis and/or pulmonary embolus.HIGH RISK: Target INR is 2.5-3.5 for patients with mechanical heart valves.BLOOD GAS, [id number] 15:31:17 Test Item Value Reference Range Interpretation [...] (test code = 1819) 60.0 OXYGEN SATURATION, [id number] 15:30:38 Test Item Value Reference Range Interpretation Comments O2 SATURATION (MEASURED) (BEAKER) 66.2 % (test code = 1455) RAD, CHEST, 1 VIEW, NON [id number] 15:30:00Reason for exam:->Status post CV Surgery post op day 0Should this be performed at the bedside?->[facility] 1945 Sex: MFINAL REPORT Chest dated 09/07/2021 COMPARISON: September 05, 2021 Clinical Information: Status post CV Surgery post op day 0 Comment: Heart is enlarged. Pulmonary vasculature is indistinct. Airspace disease is seen bilaterally suggestive of pulmonary edema. Endotracheal tube, nasogastric tube, [place] catheter, and right chest tube are present. No pneumothorax is seen. Signed: Halley Khan Verified Date/Time: 09/07/2021 15:30:25 Reading Location: [facility] Radiology Reading Room Prepare [id number] 14:47:00 Test Item Value Reference Range Interpretation Comments CROSSMATCH (test code = COMPATIBLE 2264) Unit ABO (test code = A Pos 3106792) UNIT NUMBER (test code = [id number] 934-0) Status (test code = RETURNED FROM ISSUE 3835956) Blood Bank Product (test RED BLOOD CELLS code = 2263) PRODUCT CODE (test code = I6668U23 933-2) [facility] [id number] 14:47:00 Test Item Value Reference Range Interpretation Comments Unit ABO (test code = A Pos 4566113) UNIT NUMBER (test code = [id number] 934-0) Status (test code = RETURNED FROM ISSUE 3510276) Blood Bank Product (test FFP code = 2263) PRODUCT CODE (test code = E6489N37 933-2) [facility] CenterPHOS[facility]US20[facility] 14:14:33 Test Item Value Reference Range Interpretation Comments PHOSPHORUS (BEAKER) (test code = 3.5 mg/dL 2.3-4.7 604) Telecommunications Technician ID - BSCBC W/PLT COUNT & AUTO [id number] 13:56:03 Test Item Value Reference Range Interpretation [...] 0-1 PERCENT (BEAKER) (test code = 2801) [id number] 13:40:15 Test Item Value Reference Range Interpretation Comments PARTIAL THROMBOPLASTIN TIME 40.7 seconds 22.5-36.0 H (BEAKER) (test code = 760) [id number] 13:40:14 Test Item Value Reference Range Interpretation Comments FIBRINOGEN LEVEL (BEAKER) (test 374 mg/dl 225-434 code = 658) PROTHROMBIN [id number] 13:40:08 Test Item Value Reference Range Interpretation Comments PROTIME (BEAKER) 21.5 seconds 11.9-14.2 H (test code = 759) INR (BEAKER) (test 1.89 See_Comment [Automat ed message] code = 370) The system Mocap[employer] generated this result transmitted ref erence range: <=5.90. The reference range was not used to int erpret this result as normal/abnormal . RECOMMENDED COUMADIN/WARFARIN INR THERAPY RANGESSTANDARD DOSE: 2.0 - 3.0 Includes: PROPHYLAXIS for venous thrombosis, systemic embolization; TREATMENT for venous thrombosis and/or pulmonary embolus.HIGH RISK: Target INR is 2.5-3.5 for patients with mechanical heart valves.CALCIUM, [id number] 13:38:49 Test Item Value Reference Range Interpretation Comments CALCIUM IONIZED (BEAKER) (test 1.13 mmol/L 1.12-1.27 code = 698) PH, BLOOD (BEAKER) (test code = 7.35 1810) GLUCOSE-STAT [id number] 13:37:55 Test Item Value Reference Range Interpretation Comments GLUCOSE RANDOM (BEAKER) (test code 187 mg/dL 70-110 H = 652) HGB/HCT (H&H) - STAT [id number] 13:37:55 Test Item Value Reference Range Interpretation Comments HEMOGLOBIN (BEAKER) (test code = 8.0 GM/DL 13.0-16.8 L 410) HEMATOCRIT (BEAKER) (test code = 24.0 % 40.0-50.0 L 411) BLOOD GAS, [id number] 13:37:54 Test Item Value Reference Range Interpretation [...] (test code = 1819) 94.0 SODIUM NA-STAT [id number] 13:37:41 Test Item Value Reference Range Interpretation Comments SODIUM (BEAKER) (test code = 381) 135 meq/L 136-145 L POTASSIUM-STAT [id number] 13:37:41 Test Item Value Reference Range Interpretation Comments POTASSIUM (BEAKER) (test code = 3.6 meq/L 3.6-5.5 379) Platelet [id number] 13:30:37 Test Item Value Reference Range Interpretation Comments Platelets (test code 136 See_Comment L [Autom ated = 777-3) message] The system which generated this result transmit dante reference range : 150 - 450 K/CU MM. The reference range was not u sed to interpret th is result as normal/abnormal . EMERSON (test code = EMERSON) Telecommunications Technician ID - [id number] Lab Interpretation Abnormal (test code = 88460-5) [facility] CenterPLATELET [id number] 13:30:37 Test Item Value Reference Range Interpretation Comments PLATELET COUNT (BEAKER) (test 136 K/CU MM 150-450 L code = 756) Telecommunications Technician ID - [id number], [id number] 13:24:01 Test Item Value Reference Range Interpretation Comments CALCIUM IONIZED (BEAKER) (test 1.23 mmol/L 1.12-1.27 code = 698) PH, BLOOD (BEAKER) (test code = 7.35 1810) HGB/HCT (H&H) - STAT [id number] 13:23:58 Test Item Value Reference Range Interpretation Comments HEMOGLOBIN (BEAKER) (test code = 8.2 GM/DL 13.0-16.8 L 410) HEMATOCRIT (BEAKER) (test code = 24.0 % 40.0-50.0 L 411) GLUCOSE-STAT [id number] 13:23:57 Test Item Value Reference Range Interpretation Comments GLUCOSE RANDOM (BEAKER) (test code 212 mg/dL 70-110 H = 652) BLOOD GAS, [id number] 13:23:56 Test Item Value Reference Range Interpretation [...] (BEAKER) (test code = 1819) 100.0 POTASSIUM-STAT [id number] 13:23:26 Test Item Value Reference Range Interpretation Comments POTASSIUM (BEAKER) (test code = 3.9 meq/L 3.6-5.5 379) SODIUM NA-STAT [id number] 13:23:25 Test Item Value Reference Range Interpretation Comments SODIUM (BEAKER) (test code = 381) 135 meq/L 136-145 L GLUCOSE-STAT [id number] 12:29:15 Test Item Value Reference Range Interpretation Comments GLUCOSE RANDOM (BEAKER) (test code 181 mg/dL 70-110 H = 652) HGB/HCT (H&H) - STAT [id number] 12:29:15 Test Item Value Reference Range Interpretation Comments HEMOGLOBIN (BEAKER) (test code = 8.3 GM/DL 13.0-16.8 L 410) HEMATOCRIT (BEAKER) (test code = 24.0 % 40.0-50.0 L 411) SODIUM NA-STAT [id number] 12:29:14 Test Item Value Reference Range Interpretation Comments SODIUM (BEAKER) (test code = 381) 133 meq/L 136-145 L BLOOD GAS, [id number] 12:29:13 Test Item Value Reference Range Interpretation [...] (BEAKER) (test code = 1819) 70.0 POTASSIUM-STAT [id number] 12:23:50 Test Item Value Reference Range Interpretation Comments POTASSIUM (BEAKER) (test code = 5.4 meq/L 3.6-5.5 379) HGB/HCT (H&H) - STAT [id number] 12:19:25 Test Item Value Reference Range Interpretation Comments HEMOGLOBIN (BEAKER) (test code = 7.8 GM/DL 13.0-16.8 L 410) HEMATOCRIT (BEAKER) (test code = 23.0 % 40.0-50.0 L 411) GLUCOSE-STAT [id number] 12:19:24 Test Item Value Reference Range Interpretation Comments GLUCOSE RANDOM (BEAKER) (test code 185 mg/dL 70-110 H = 652) BLOOD GAS, [id number] 12:19:23 Test Item Value Reference Range Interpretation [...] (test code = 1819) 70.0 SODIUM NA-STAT [id number] 12:19:23 Test Item Value Reference Range Interpretation Comments SODIUM (BEAKER) (test code = 381) 132 meq/L 136-145 L POTASSIUM-STAT [id number] 12:19:10 Test Item Value Reference Range Interpretation Comments POTASSIUM (BEAKER) (test code = 5.1 meq/L 3.6-5.5 379) Hemoglobin [id number] 12:09:07 Test Item Value Reference Range Interpretation Comments Hemoglobin A1C (test 5.0 % See_Comment [Autom ated code = 4549-2) message] The system which generated this result transmitted reference range : <=5.6%. The reference range was not used to interpret this result as normal/abnormal . EMERSON (test code = EMERSON) "The A1c is measured using a NGSP-certified method. HbA1c value equal to or greater than 6.5% as the diagnosis cutoff for diabetes. An HbA1c value of 5.7-6.4% indicates increased risk for diabetes (prediabetes)."O perator ID - ADM Lab Interpretation Normal (test code = 89083-5) [facility] CenterHEMOGLOBIN [id number] 12:09:07 Test Item Value Reference Range Interpretation [...] 5.7- 6.4% indicates increased risk for diabetes (prediabetes)."Telecommunications Technician ID - ADM LACTIC ACID, [id number] 12:07:07 Test Item Value Reference Range Interpretation Comments LACTATE BLOOD 1.0 mmol/L 0.5-2.2 Specimen sligh tly ARTERIAL (2) (BEAKER) hemoly zed (test code = 2874) Telecommunications Technician ID - BSGLUCOSE-STAT [id number] 11:24:11 Test Item Value Reference Range Interpretation Comments GLUCOSE RANDOM (BEAKER) (test code 191 mg/dL 70-110 H = 652) HGB/HCT (H&H) - STAT [id number] 11:24:11 Test Item Value Reference Range Interpretation Comments HEMOGLOBIN (BEAKER) (test code = 7.9 GM/DL 13.0-16.8 L 410) HEMATOCRIT (BEAKER) (test code = 23.0 % 40.0-50.0 L 411) SODIUM NA-STAT [id number] 11:24:10 Test Item Value Reference Range Interpretation Comments SODIUM (BEAKER) (test code = 381) 132 meq/L 136-145 L BLOOD GAS, [id number] 11:24:09 Test Item Value Reference Range Interpretation [...] (test code = 1819) 80.0 LACTIC ACID, [id number] 11:12:30 Test Item Value Reference Range Interpretation Comments LACTATE BLOOD 1.1 mmol/L 0.5-2.2 Specimen sligh tly ARTERIAL (2) (BEAKER) hemoly zed (test code = 2874) Telecommunications Technician ID - BSPOTASSIUM-STAT [id number] 11:12:12 Test Item Value Reference Range Interpretation Comments POTASSIUM (BEAKER) (test code = 4.6 meq/L 3.6-5.5 379) HGB/HCT (H&H) - STAT [id number] 10:59:07 Test Item Value Reference Range Interpretation Comments HEMOGLOBIN (BEAKER) (test code = 8.9 GM/DL 13.0-16.8 L 410) HEMATOCRIT (BEAKER) (test code = 26.0 % 40.0-50.0 L 411) GLUCOSE-STAT [id number] 10:59:06 Test Item Value Reference Range Interpretation Comments GLUCOSE RANDOM (BEAKER) (test code 153 mg/dL 70-110 H = 652) SODIUM NA-STAT [id number] 10:59:05 Test Item Value Reference Range Interpretation Comments SODIUM (BEAKER) (test code = 381) 132 meq/L 136-145 L BLOOD GAS, [id number] 10:59:04 Test Item Value Reference Range Interpretation [...] (BEAKER) (test code = 1819) 80.0 POTASSIUM-STAT [id number] 10:58:12 Test Item Value Reference Range Interpretation Comments POTASSIUM (BEAKER) (test code = 5.3 meq/L 3.6-5.5 379) HGB/HCT (H&H) - STAT [id number] 08:47:12 Test Item Value Reference Range Interpretation Comments HEMOGLOBIN (BEAKER) (test code = 9.5 GM/DL 13.0-16.8 L 410) HEMATOCRIT (BEAKER) (test code = 28.0 % 40.0-50.0 L 411) GLUCOSE-STAT [id number] 08:47:11 Test Item Value Reference Range Interpretation Comments GLUCOSE RANDOM (BEAKER) (test code 121 mg/dL 70-110 H = 652) BLOOD GAS, [id number] 08:47:10 Test Item Value Reference Range Interpretation [...] (BEAKER) (test code = 1819) 95.0 CALCIUM, [id number] 08:46:35 Test Item Value Reference Range Interpretation Comments CALCIUM IONIZED (BEAKER) (test 1.12 mmol/L 1.12-1.27 code = 698) PH, BLOOD (BEAKER) (test code = 7.46 1810) POTASSIUM-STAT [id number] 08:46:14 Test Item Value Reference Range Interpretation Comments POTASSIUM (BEAKER) (test code = 3.7 meq/L 3.6-5.5 379) SODIUM NA-STAT [id number] 08:46:13 Test Item Value Reference Range Interpretation Comments SODIUM (BEAKER) (test code = 381) 135 meq/L 136-145 L [id number] 05:26:11 Test Item Value Reference Range Interpretation Comments TSH (test code = 1.491 See_Comment [Automated 00525-1) message] The system which generated this result transmit dante reference range : 0.350 - 4.940 uIU/mL. The reference range was not used to interpret this result as normal/abnormal . EMERSON (test code = EMERSON) Telecommunications Technician ID - MARZENA M Lab Interpretation Normal (test code = 82863-0) [facility] CenterTSH2022-01-[facility] 05:26:11 Test Item Value Reference Range Interpretation Comments THYROID STIMULATING HORMONE 1.491 uIU/mL 0.350-4.940 (BEAKER) (test code = 772) Telecommunications Technician ID Patrick IVAN MLipid [id number] 04:13:29 Test Item Value Reference Range Interpretation Comments Triglycerides (test 49 mg/dL code = 2571-8) Cholesterol (test code 92 mg/dL = 2093-3) HDL (test code = 43 mg/dL 2085-9) LDL Calculated (test 39 mg/dL code = 05403-2) EMERSON (test code = EMERSON) Triglyceride Reference Range: Low Risk <150 Borderline 150-199 High Risk 200-499 Very High Risk >=500 Cholesterol Reference Range: Low Risk <200 Borderline 200-239 High Risk >240 HDL Cholesterol Reference Range: Low Risk >=60 High Risk <40 LDL Cholesterol Reference Range: Optimal <100 Near Optimal 100-129 Borderline 130-159 High 160-189 Very High >=190 Telecommunications Technician ID - BSOperator ID - BS [facility] CenterLIPID [id number] 04:13:29 Test Item Value Reference Range Interpretation Comments TRIGLYCERIDES (BEAKER) (test code = 49 mg/dL 540) CHOLESTEROL (BEAKER) (test code = 92 mg/dL 631) HDL CHOLESTEROL (BEAKER) (test code 43 mg/dL = 976) LDL CHOLESTEROL CALCULATED (AKER) 39 mg/dL (test code = 633) Triglyceride Reference Range: Low Risk <150 Borderline 150-199 High Risk 200- 499 Very High Risk >=500Cholesterol Reference Range: Low Risk <200 Borderline 200-239 High Risk >240HDL Cholesterol Reference Range: Low Risk >=60 High Risk <40LDL Cholesterol Reference Range: Optimal <100 Near Optimal 100-129 Borderline 130-159 High 160-189 Very High >=190 Telecommunications Technician ID - BSOperator ID- BSCBC W/PLT COUNT & AUTO [id number] 03:49:38 Test Item Value Reference Range Interpretation [...] (BEAKER) (test code = 2801) COMPREHENSIVE METABOLIC [id number] 03:30:53 Test Item Value Reference Range Interpretation [...] 347) EGFR (BEAKER) (test 71 mL/min/1.73 ESTIMA DANTE GFR IS code = 1092) sq m NOT ACCURATE CREATININE CLEARANCE IN PREDICTING GLOMERULAR FILTRATION RATE . ESTIMATED GFR I S NOT APPLICABLE FOR DIALYSIS PATIEN TS. Telecommunications Technician ID - [id number] 03:30:53 Test Item Value Reference Range Interpretation Comments MAGNESIUM (BEAKER) (test code = 2.3 mg/dL 1.6-2.6 627) Telecommunications Technician ID - [id number] 03:22:52 Test Item Value Reference Range Interpretation Comments PARTIAL THROMBOPLASTIN TIME 67.2 seconds 22.5-36.0 H (BEAKER) (test code = 760) PROTHROMBIN [id number] 03:21:30 Test Item Value Reference Range Interpretation Comments PROTIME (BEAKER) 15.3 seconds 11.9-14.2 H (test code = 759) INR (BEAKER) (test 1.23 See_Comment [Automat ed message] code = 370) The system Moc[employer] generated this result transmitted ref erence range: <=5.90. The reference range was not used to int erpret this result as normal/abnormal . RECOMMENDED COUMADIN/WARFARIN INR THERAPY RANGESSTANDARD DOSE: 2.0 - 3.0 Includes: PROPHYLAXIS for venous thrombosis, systemic embolization; TREATMENT for venous thrombosis and/or pulmonary embolus.HIGH RISK: Target INR is 2.5-3.5 for patients with mechanical heart valves.BLOOD GAS, [id number] 03:08:40 Test Item Value Reference Range Interpretation [...] (BEAKER) (test code = 1819) 21.0 POCT-GLUCOSE [id number] 21:21:10 Test Item Value Reference Range Interpretation Comments POC-GLUCOSE METER 163 mg/dL 70-110 H : TESTED A T [facility] 6720 (BEAKER) (test code = [place], 1538) [address]: Telecommunications Technician/Techni bart ID = [id number] for GLORIA VALDERRAMA PROTHROMBIN [id number] 20:13:27 Test Item Value Reference Range Interpretation Comments PROTIME (BEAKER) 15.3 seconds 11.9-14.2 H (test code = 759) INR (BEAKER) (test 1.23 See_Comment [Automat ed message] code = 370) The system Moc[employer] generated this result transmitted ref erence range: <=5.90. The reference range was not used to int erpret this result as normal/abnormal . RECOMMENDED COUMADIN/WARFARIN INR THERAPY RANGESSTANDARD DOSE: 2.0 - 3.0 Includes: PROPHYLAXIS for venous thrombosis, systemic embolization; TREATMENT for venous thrombosis and/or pulmonary embolus.HIGH RISK: Target INR is 2.5-3.5 for patients with mechanical heart valves.[id number] 18:18:05 Test Item Value Reference Range Interpretation Comments PARTIAL THROMBOPLASTIN TIME 65.4 seconds 22.5-36.0 [facility] (test code = 760) POCT-GLUCOSE [id number] 17:26:15 Test Item Value Reference Range Interpretation Comments POC-GLUCOSE METER 146 mg/dL 70-110 H : Notified RN/MD: (BRAXTON) (test code = TESTED AT [place] [address]) [facility], [address]: Telecommunications Technician/Techni bart ID = [id number] for LL OYD, TIKEYA POCT-GLUCOSE [id number] 11:21:58 Test Item Value Reference Range Interpretation Comments POC-GLUCOSE METER 142 mg/dL 70-110 H : Notified RN/MD: (BRAXTON) (test code = TESTED AT [place] [address]) [facility], [address]: Telecommunications Technician/Techni bart ID = [id number] for LL OYD, TIKEYA [id number] 11:20:08 Test Item Value Reference Range Interpretation Comments PARTIAL THROMBOPLASTIN TIME 78.4 seconds 22.5-36.0 H ([place]) (test code = 760) POCT-GLUCOSE [id number] 08:18:13 Test Item Value Reference Range Interpretation Comments POC-GLUCOSE METER 154 mg/dL 70-110 H : Notified RN/MD: (BRAXTON) (test code = TESTED AT [place] [address]) [facility], [address]: Telecommunications Technician/Techni bart ID = [id number] for LL OYD, TIKEYA [id number] 06:28:05 Test Item Value Reference Range Interpretation Comments MAGNESIUM (BRAXTON) (test code = 2.2 mg/dL 1.6-2.6 627) Telecommunications Technician ID - KEARA WBASIC METABOLIC [id number] 06:28:04 Test Item Value Reference Range Interpretation [...] 697) EGFR (BEAKER) (test 77 mL/min/1.73 ESTIMA DANTE GFR IS code = 1092) sq m NOT ACCURATE CREATININE CLEARANCE IN PREDICTING GLOMERULAR FILTRATION RATE . ESTIMATED GFR I S NOT APPLICABLE FOR DIALYSIS PATIEN TS. Telecommunications Technician ID - KEARA WCBC W/PLT COUNT & AUTO [id number] 05:57:11 Test Item Value Reference Range Interpretation [...] 0-1 PERCENT (BEAKER) (test code = 2801) [id number] 05:39:02 Test Item Value Reference Range Interpretation Comments PARTIAL THROMBOPLASTIN TIME 55.5 seconds 22.5-36.0 H (BEAKER) (test code = 760) BLOOD GAS, [id number] 05:24:42 Test Item Value Reference Range Interpretation [...] FIO2 (BEAKER) (test code = 1819) 21.0 [id number] 23:08:23 Test Item Value Reference Range Interpretation Comments PARTIAL THROMBOPLASTIN TIME 55.5 seconds 22.5-36.0 H (BEAKER) (test code = 760) POCT-GLUCOSE [id number] 21:56:54 Test Item Value Reference Range Interpretation Comments POC-GLUCOSE METER 108 mg/dL 70-110 : TESTED A T [facility] 6720 (BEAKER) (test code = [place] [facility], 1538) [address]: Telecommunications Technician/Techni bart ID = [id number] for Sharon Sol Transesophageal [id number] 21:03:33Ejection FractionSLE ECHO HEARTLAB MKCKESSON [facility]Al[facility] CenterPOCT-GLUCOSE [id number] 17:16:14 Test Item Value Reference Range Interpretation Comments POC-GLUCOSE METER 112 mg/dL 70-110 H : TESTED A T [facility] 6720 (BEAKER) ([facility] = [facility], 1538) [address]: Telecommunications Technician/Techni bart ID = [id number] for NAHED HERNANDEZ B-type Natriuretic Factor (BNP)2021-09-05 17:13:19 Test Item Value Reference Range Interpretation Comments BNP (test code = 79421-5) 427 pg/mL 0-100 H EMERSON (test code = EMERSON) Telecommunications Technician ID - BS Lab Interpretation (test Abnormal code = 53067-9) [facility] CenterB-TYPE NATRIURETIC FACTOR (BNP)2021-09-05 17:13:19 Test Item Value Reference Range Interpretation Comments B-TYPE NATRIURETIC PEPTIDE (BEAKER) 427 pg/mL 0-100 H (test code = 700) Telecommunications Technician ID - [id number] 17:08:24 Test Item Value Reference Range Interpretation Comments MAGNESIUM (BEAKER) (test code = 2.3 mg/dL 1.6-2.6 627) Telecommunications Technician ID - BSBASIC METABOLIC [id number] 17:08:23 Test Item Value Reference Range Interpretation [...] 697) EGFR (BEAKER) (test 65 mL/min/1.73 ESTIMA DANTE GFR IS code = 1092) sq m NOT ACCURATE CREATININE CLEARANCE IN PREDICTING GLOMERULAR FILTRATION RATE . ESTIMATED GFR I S NOT APPLICABLE FOR DIALYSIS PATIEN TS. Telecommunications Technician ID - [id number] 16:56:34 Test Item Value Reference Range Interpretation Comments PARTIAL THROMBOPLASTIN TIME 78.6 seconds 22.5-36.0 H (BEAKER) (test code = 760) POCT-GLUCOSE [id number] 11:40:10 Test Item Value Reference Range Interpretation Comments POC-GLUCOSE METER 123 mg/dL 70-110 H : [facility] ([facility] (test code = [facility], 1538) [address]: Telecommunications Technician/Techni bart ID = [id number] for BL UHERIBERTO Reyes [id number] 08:48:28 Test Item Value Reference Range Interpretation Comments PARTIAL THROMBOPLASTIN TIME 50.1 seconds 22.5-36.0 H (BEAKER) (test code = 760) POCT-GLUCOSE [id number] 08:33:40 Test Item Value Reference Range Interpretation Comments POC-GLUCOSE METER 83 mg/dL 70-110 : TESTED A T [facility] 6720 ([facility]) (test code = [facility], 1538) [address]: Telecommunications Technician/Techni bart ID = [id number] for NAHED JOHN Carotid doppler [id number] 07:35:52Ejection FractionSLE ECHO HEARTLAB MKCKESSON [facility]APTT[facility] 05:35:19 Test Item Value Reference Range Interpretation Comments PARTIAL THROMBOPLASTIN TIME > seconds 22.5-36.0 HH (BEAKER) (test code = 760) RAD, CHEST, 1 VIEW, NON [id number] 05:07:00Reason for exam:->Respiratory failureShould this be performed at the bedside?->Yes [facility] 1945 Sex: MFINAL REPORT RAD, CHEST, 1 VIEW, NON DEPT INDICATION: Respiratory failure COMPARISON: Prior day's exam FINDINGS: Portable frontal view of the chest. IMPRESSION: Lungs and pleura: Bilateral pulmonary opacities are reduced. No pneumothorax.Heart and mediastinum: Stable contours. Additional findings: None. Signed: Link Pak MDReport Verified Date/Time: 09/05/2021 05:07:55 [id number] 05:06:53 Test Item Value Reference Range Interpretation Comments MAGNESIUM (BEAKER) (test code = 2.3 mg/dL 1.6-2.6 627) Telecommunications Technician ID - SHANE GBASIC METABOLIC [id number] 05:06:52 Test Item Value Reference Range Interpretation [...] 697) EGFR (BEAKER) (test 71 mL/min/1.73 ESTIMA DANTE GFR IS code = 1092) sq m NOT ACCURATE CREATININE CLEARANCE IN PREDICTING GLOMERULAR FILTRATION RATE . ESTIMATED GFR I S NOT APPLICABLE FOR DIALYSIS PATIEN TS. Telecommunications Technician ID - SHANE GVancomycin level, [id number] 05:03:34 Test Item Value Reference Range Interpretation Comments Vancomycin Tr (test code = 7.0 ug/mL 10.0-20.0 L 4092-3) EMERSON (test code = EMERSON) Telecommunications Technician ID - SHANE G Lab Interpretation (test Abnormal code = 64550-4) [facility] CenterVANCOMYCIN LEVEL, [id number] 05:03:34 Test Item Value Reference Range Interpretation Comments VANCOMYCIN TROUGH (BEAKER) (test 7.0 ug/mL 10.0-20.0 L code = 522) Telecommunications Technician ID - SHANE GBLOOD GAS, [id number] 04:54:51 Test Item Value Reference Range Interpretation [...] (BEAKER) (test code = 1819) 21.0 POCT-GLUCOSE [id number] 00:08:56 Test Item Value Reference Range Interpretation Comments POC-GLUCOSE METER 92 mg/dL 70-110 : TESTED A T [facility] 6720 (BEAKER) (test code [facility], = 1538) [address]: Telecommunications Technician/Techni bart ID = [id number] for Christopher Hoskins [id number] 22:59:43 Test Item Value Reference Range Interpretation Comments PARTIAL THROMBOPLASTIN TIME 105.5 seconds 22.5-36.0 H (BEAKER) (test code = 760) POCT-GLUCOSE [id number] 22:43:54 Test Item Value Reference Range Interpretation Comments POC-GLUCOSE METER 131 mg/dL 70-110 H : TESTED A T [facility] 6720 (BEAKER) (test code = [place] [facility], 1538) [address]: Telecommunications Technician/Techni bart ID = [id number] for ANDI MIGUEL BASIC METABOLIC [id number] 20:21:48 Test Item Value Reference Range Interpretation [...] 697) EGFR (BEAKER) (test 64 mL/min/1.73 ESTIMA DANTE GFR IS code = 1092) sq m NOT ACCURATE CREATININE CLEARANCE IN PREDICTING GLOMERULAR FILTRATION RATE . ESTIMATED GFR I S NOT APPLICABLE FOR DIALYSIS PATIEN TS. Telecommunications Technician ID - [id number] 20:21:48 Test Item Value Reference Range Interpretation Comments MAGNESIUM (BEAKER) (test code = 2.4 mg/dL 1.6-2.6 627) Telecommunications Technician ID - DBBLOOD GAS, [id number] 18:19:48 Test Item Value Reference Range Interpretation [...] (BEAKER) (test code = 1819) 21.0 POCT-GLUCOSE [id number] 18:13:29 Test Item Value Reference Range Interpretation Comments POC-GLUCOSE METER 98 mg/dL 70-110 : TESTED A T [facility] 6720 (BEAKER) (test code = [facility], 1538) [address]: Telecommunications Technician/Techni bart ID = [id number] for MELANIERAJIV NICOLE, NAHED [id number] 15:50:51 Test Item Value Reference Range Interpretation Comments PARTIAL THROMBOPLASTIN TIME 79.7 seconds 22.5-36.0 H (BEAKER) (test code = 760) [id number] 14:42:01 Test Item Value Reference Range Interpretation Comments PARTIAL THROMBOPLASTIN TIME 196.8 seconds 22.5-36.0 HH (BEAKER) (test code = 760) [id number] 13:31:24 Test Item Value Reference Range Interpretation Comments PARTIAL THROMBOPLASTIN TIME > seconds 22.5-36.0 HH (BEAKER) (test code = 760) POCT-GLUCOSE [id number] 12:32:34 Test Item Value Reference Range Interpretation Comments POC-GLUCOSE METER 96 mg/dL 70-110 : TESTED A T [facility] 6720 (BEAKER) (test code = [facility], 1538) [address]: Telecommunications Technician/Techni bart ID = [id number] for MELANIE SO NICOLE, NAHED POCT-GLUCOSE [id number] 09:39:48 Test Item Value Reference Range Interpretation Comments POC-GLUCOSE METER 93 mg/dL 70-110 : TESTED A T [facility] 6720 (BEAKER) (test code = [place], 1538) [address]: Telecommunications Technician/Techni bart ID = [id number] for NAHED JOHN [id number] 05:38:09 Test Item Value Reference Range Interpretation Comments MAGNESIUM (BEAKER) (test code = 2.2 mg/dL 1.6-2.6 627) Telecommunications Technician ID - KAYLEEN LBASIC METABOLIC [id number] 05:38:08 Test Item Value Reference Range Interpretation [...] 697) EGFR (BEAKER) (test 66 mL/min/1.73 ESTIMA DANTE GFR IS code = 1092) sq m NOT ACCURATE CREATININE CLEARANCE IN PREDICTING GLOMERULAR FILTRATION RATE . ESTIMATED GFR I S NOT APPLICABLE FOR DIALYSIS PATIEN TS. Telecommunications Technician ID - PIMARIELA [id number] 05:37:51 Test Item Value Reference Range Interpretation Comments PARTIAL THROMBOPLASTIN TIME 74.7 seconds 22.5-36.0 H (BEAKER) (test code = 760) BLOOD GAS, [id number] 05:36:41 Test Item Value Reference Range Interpretation [...] 1819) 21.0 CBC W/PLT COUNT & AUTO [id number] 05:07:56 Test Item Value Reference Range Interpretation [...] = 2801) RAD, CHEST, 1 VIEW, NON [id number] 04:31:00Reason for exam:->Respiratory failureShould this be performed at the bedside?->Yes [facility] 1945 Sex: MFINAL REPORT RAD, CHEST, 1 VIEW, NON DEPT INDICATION: Respiratory failure COMPARISON: Prior day's exam FINDINGS: Portable frontal view of the chest. IMPRESSION: Support Lines: None Lungs and pleura: Reduced airspace and pleural opacities. No pneumothorax.Heart and mediastinum: Stable contours. Additional findings: None. Signed: Link Pak Verified Date/Time: 09/04/2021 04:31:46 POCT-GLUCOSE [id number] 22:15:29 Test Item Value Reference Range Interpretation Comments POC-GLUCOSE METER 113 mg/dL 70-110 H : TESTED A T [facility] 6720 (BEAKER) (test code = [place], 1538) [address]: Telecommunications Technician/Techni bart ID = [id number] for THEODORA ACOSTA (Tyrel)EVAN [id number] 17:34:10 Test Item Value Reference Range Interpretation Comments Procalcitonin (test code = 0.74 ng/mL <0.05 H 08161-9) EMERSON (test code = EMERSON) SEPSIS RISK (ng/mL)Low: 0.05-0.50Intermedia te: 0.51-2.00High: >=2.01 Lab Interpretation (test Abnormal code = 91317-4) [facility] [id number] 17:34:10 Test Item Value Reference Range Interpretation Comments PROCALCITONIN (BEAKER) (test code 0.74 ng/mL <0.05 H = 3036) SEPSIS RISK (ng/mL)Low: 0.05-0.50Intermediate: 0.51-2.00High: >=2.01BASIC METABOLIC [id number] 17:02:45 Test Item Value Reference Range Interpretation [...] 697) EGFR (BEAKER) (test 62 mL/min/1.73 ESTIMA DANTE GFR IS code = 1092) sq m NOT ACCURATE CREATININE CLEARANCE IN PREDICTING GLOMERULAR FILTRATION RATE . ESTIMATED GFR I S NOT APPLICABLE FOR DIALYSIS PATIEN TS. Telecommunications Technician ID - [id number] 17:02:45 Test Item Value Reference Range Interpretation Comments MAGNESIUM (BEAKER) (test code = 2.3 mg/dL 1.6-2.6 627) Telecommunications Technician ID - DBPOCT-GLUCOSE [id number] 16:39:27 Test Item Value Reference Range Interpretation Comments POC-GLUCOSE METER 102 mg/dL 70-110 : TESTED A T [facility] 6720 (BEAKER) (test code = [place], 1538) [address]: Telecommunications Technician/Techni bart ID = [id number] for Gu Eduardo babcock BLOOD GAS, [id number] 16:20:14 Test Item Value Reference Range Interpretation [...] FIO2 (BEAKER) (test code = 1819) 32.0 2D Echo W/Doppler(CW/PW/Color)2021-09-03 14:12:53Ejection FractionSLEH ECHO HEARTLAB MKCKESSON CPACHI Fabiola [id number] 07:54:36 Test Item Value Reference Range Interpretation Comments MAGNESIUM (BEAKER) (test code = 2.4 mg/dL 1.6-2.6 627) Telecommunications Technician ID - PIAYA LRAD, CHEST, 1 VIEW, NON [id number] 06:39:00Reason for exam:->Respiratory failureShould this be performed at the bedside?->Yes [facility] : 1945 Sex: MFINAL REPORT Chest, one view. HISTORY: Respiratory failure COMPARISON: Radiograph from yesterday IMPRESSION: The bilateral perihilar opacities have increased, most consistent with worsening pulmonary edema. Small right and trace left pleural effusions. No pneumothorax. The cardiac silhouette is unchanged in size. No acute bone abnormality. Biopsy clip over the stomach. Signed: Nikhil Sotelo MDReport Verified Date/Time: 09/03/2021 06:39:59 BASIC METABOLIC [id number] 05:41:02 Test Item Value Reference Range Interpretation [...] 697) EGFR (BEAKER) (test 60 mL/min/1.73 ESTIMA DANTE GFR IS code = 1092) sq m NOT ACCURATE CREATININE CLEARANCE IN PREDICTING GLOMERULAR FILTRATION RATE . ESTIMATED GFR I S NOT APPLICABLE FOR DIALYSIS PATIEN TS. Telecommunications Technician ID - PIAYA LBLOOD GAS, [id number] 05:28:49 Test Item Value Reference Range Interpretation [...] FIO2 (BEAKER) (test code = 1819) 50.0 High Sensitivity Troponin I ([facility]/[place] Only)2021-09-03 05:25:39 Test Item Value Reference Range Interpretation Comments Troponin I HS (test 35 pg/ml See_Comment [Automa dante code = 17081-7) message] The system which generated this result transmitted reference range : <=35. The reference range was not used to interpret this result as normal/abnormal . EMERSON (test code = Telecommunications Technician ID - EMERSON) KAYLEEN LThe REPRESENTATIVE GOVERNMENT RELATIONS STAT High Sensitivity Troponin-I results should be used in conjunction with other diagnostic information such as ECG, clinical observations and information, and patient symptoms to aid in the diagnosis of AL. Lab Interpretation Normal (test code = 87548-8) [facility] CenterH[facility]IT[facility] TROPONIN [id number] 05:25:39 Test Item Value Reference Range Interpretation Comments HIGH SENSITIVITY 35 pg/ml See_Comment [Automated message] TROPONIN I (test code = The system which [id number]) generated this result transmitted ref erence range: <=35. Th e reference range was not used to int erpret this result as normal/abnormal . Telecommunications Technician ID - KAYLEEN LThe REPRESENTATIVE GOVERNMENT RELATIONS STAT High Sensitivity Troponin-I results should be used in conjunction with other diagnostic information such as ECG, clinical observations and information, and patient symptoms to aid in the diagnosis of AL.B-TYPE NATRIURETIC FACTOR (BNP)2021-09-03 05:25:38 Test Item Value Reference Range Interpretation Comments B-TYPE NATRIURETIC PEPTIDE 1522 pg/mL 0-100 H (BEAKER) (test code = 700) Telecommunications Technician ID - KAYLEEN LLactic acid, [id number] 05:08:12 Test Item Value Reference Range Interpretation Comments Lactate, Venous (test code 0.98 mmol/L 0.50-2.20 = 2872) EMERSON (test code = EMERSON) Telecommunications Technician ID Patrick BEYER L Lab Interpretation (test Normal code = 05397-2) [facility] CenterLACTIC ACID, [id number] 05:08:12 Test Item Value Reference Range Interpretation Comments LACTATE BLOOD VENOUS (2) (BEAKER) 0.98 mmol/L 0.50-2.20 (test code = 2872) Telecommunications Technician ID Patrick BEYER LCBC W/PLT COUNT & AUTO [id number] 04:46:58 Test Item Value Reference Range Interpretation [...] (test code = 2801) HIGH SENSITIVITY TROPONIN [id number] 23:24:52 Test Item Value Reference Range Interpretation Comments HIGH SENSITIVITY 60 pg/ml See_Comment H [Automated message] TROPONIN I (test code = The system which [id number]) generated this result transmitted ref erence range: <=35. Th e reference range was not used to int erpret this result as normal/abnormal . Telecommunications Technician ID - PIAYA LThe REPRESENTATIVE GOVERNMENT RELATIONS STAT High Sensitivity Troponin-I results should be used in conjunction with other diagnostic information such as ECG, clinical observations and information, and patient symptoms to aid in the diagnosis of AL.LACTIC ACID, [id number] 23:16:31 Test Item Value Reference Range Interpretation Comments LACTATE BLOOD VENOUS 2.39 mmol/L 0.50-2.20 H Specime n slightly (2) (BEAKER) (test hemolyzed code = 2772) Telecommunications Technician ID - PIAYA LBASIC METABOLIC [id number] 20:00:02 Test Item Value Reference Range Interpretation [...] 358) GLUCOSE RANDOM 200 mg/dL 70-105 H (BRAXTON) (test code = 652) CALCIUM (BRAXTON) 9.7 mg/dL 8.4-10.2 (test code = 697) EGFR (BRAXTON) (test 47 mL/min/1.73 ESTIMA DANTE GFR IS code = 1092) sq m NOT ACCURATE CREATININE CLEARANCE IN PREDICTING GLOMERULAR FILTRATION RATE . ESTIMATED GFR I S NOT APPLICABLE FOR DIALYSIS PATIEN TS. Telecommunications Technician ID - DBLACTIC ACID, [id number] 19:50:59 Test Item Value Reference Range Interpretation Comments LACTATE BLOOD VENOUS 3.70 mmol/L 0.50-2.20 H Specime n slightly (2) (BRAXTON) (test hemolyzed code = 2876) Telecommunications Technician ID - JADLYCLMIWAYGKO8559-40-19 18:48:36 Test Item Value Reference Range Interpretation Comments PROCALCITONIN (BRAXTON) (test code = < ng/mL <0.05 3036) SEPSIS RISK (ng/mL)Low: 0.05-0.50Intermediate: 0.51-2.00High: >=2.01B-TYPE NATRIURETIC FACTOR (BNP)2021-09-02 18:06:28 Test Item Value Reference Range Interpretation Comments B-TYPE NATRIURETIC PEPTIDE (BRAXTON) 801 pg/mL 0-100 H (test code = 700) Telecommunications Technician ID - DBHIGH SENSITIVITY TROPONIN [id number] 18:06:07 Test Item Value Reference Range Interpretation Comments HIGH SENSITIVITY 10 pg/ml See_Comment [Automated message] TROPONIN I (test code = The system which [id number]) generated this result transmitted ref erence range: <=35. Th e reference range was not used to int erpret this result as normal/abnormal . Telecommunications Technician ID - DBThe REPRESENTATIVE GOVERNMENT RELATIONS STAT High Sensitivity Troponin-I results should be used in conjunctionwith other diagnostic information such as ECG, clinical observations and information, and patient symptoms to aid in the diagnosis of AL.LACTIC ACID, [id number] 18:03:35 Test Item Value Reference Range Interpretation Comments LACTATE BLOOD 5.0 mmol/L 0.5-2.2 HH Specimen sligh tly ARTERIAL (2) (BRAXTON) hemoly zed (test code = 2874) Telecommunications Technician ID - DBRAD, CHEST, 1 VIEW, NON [id number] 18:01:00Reason for exam:- >dyspneaShould this be performed at the bedside?->Yes [facility] 1945 Sex: MFINAL REPORT RAD, CHEST, 1 VIEW, NON DEPT INDICATION: dyspnea COMPARISON: 07/03/21 FINDINGS: Portable frontal view of the chest. IMPRESSION: Support Lines: Overlying leads Lungs andpleura: Bibasilar airspace disease and small bilateral effusions, compatible with mild volume overload. No significant pneumothorax. Heart and mediastinum: Normal contours. Additional findings: None. Signed: Gaby Cordero Verified Date/Time: 09/02/2021 18:01:04 -[id number] 17:41:20 Test Item Value Reference Range Interpretation Comments POC-Glucose (test code = 245 mg/dL 70-110 H : T ESTED AT [facility] 1855) [address] [facility] [place], [address]: Telecommunications Technician/Techni bart ID = [id number] for RIA, NAVDEEP Lab Interpretation (test Abnormal code = 70926-5) [facility] CenterPOCT-[id number] 17:41:20 Test Item Value Reference Range Interpretation Comments POC-GLUCOSE (BEAKER) 245 mg/dL 70-110 H : TESTE D AT [facility] 6720 (test code = 1855) [facility], [address]: Telecommunications Technician/Techni bart ID = [id number] for PAIG E, NAVDEEP PINA-[id number] 17:41:19 Test Item Value Reference Range Interpretation Comments POC-Hemoglobin (test code 12.2 g/dL 13.0-16.8 L : TESTED AT [facility] = 1856) [address] [place] [address], [address]: Telecommunications Technician/Techni bart ID = [id number] for RIA, NAVDEEP Lab Interpretation (test Abnormal code = 14474-9) [facility] CenterDvphrlCNUQ-[id number] 17:41:19 Test Item Value Reference Range Interpretation Comments POC-Hematocrit (test code 36 % 40-50 L : = 1857) Telecommunications Technician/Techni bart ID = [id number] for RIA, NAVDEEP Lab Interpretation (test Abnormal code = 41563-4) [facility] CenterYcsefzXDZC-[id number] 17:41:19 Test Item Value Reference Range Interpretation Comments POC-HEMOGLOBIN 12.2 g/dL 13.0-16.8 L : TESTED AT [place] [address] (BEAKER) (test code [facility], = 1856) [address]: Telecommunications Technician/Techni bart ID = [id number] for PAIG E, NAVDEEP ADKG-[id number] 17:41:19 Test Item Value Reference Range Interpretation Comments POC-HEMATOCRIT 36 % 40-50 L : Telecommunications Technician/Te chnician ID = (BEAKER) (test code = 574428 for RIA, NAVDEEP 1857) [id number] 17:41:18 Test Item Value Reference Range Interpretation Comments POC-Potassium (test code 4.6 meq/L 3.6-5.5 : T DEWAYNE AT [facility] = 1540) [address] [facility], [address]: Telecommunications Technician/Techni bart ID = [id number] for RIA, NAVDEEP Lab Interpretation (test Normal code = 94708-3) [facility] CenterPOCT-[id number] 17:41:18 Test Item Value Reference Range Interpretation Comments POC-POTASSIUM 4.6 meq/L 3.6-5.5 : TESTED AT [facility] 6720 (BEAKER) (test code [facility], = 1540) [address]: Telecommunications Technician/Techni bart ID = [id number] for PAIG E, NAVDEEP SYX-[id number] 17:41:13 Test Item Value Reference Range Interpretation Comments POC-Sodium (test code = 133 meq/L 135-148 L : TE STED AT [facility] 1542) [address] [facility] [place], [address]: Telecommunications Technician/Techni bart ID = [id number] for RIADAVIDNAVDEEP Lab Interpretation (test Abnormal code = 90346-0) [facility] CenterPOCT-[id number] 17:41:13 Test Item Value Reference Range Interpretation Comments POC-SODIUM (BEAKER) 133 meq/L 135-148 L : TESTED AT [facility] 6720 (test code = 1542) [place] [place], [address]: Telecommunications Technician/Techni bart ID = [id number] for PAIG E, NAVDEEP POC-Blood gases, [id number] 17:41:12 Test Item Value Reference Range Interpretation Comments Temp. Celsius-POC (test code = 1834) FIO2-POC (test code = 1835) pH, Arterial-POC (test 7.376 7.350-7.450 code = 1836) PCO2, Arterial-POC 30.6 See_Comment L If pO2 is >180, pCO2 (test code = 1837) may be po sitively biased [Automat ed message] The sy stem which generated this result transmit dante reference range : 35.0 - 45.0 mm Hg. The reference r mayra was not used to interpret this result as normal/abnormal . PO2, Arterial-POC (test 64.0 See_Comment L [Au tomated message] code = 1838) The system Moc[employer] generated this result transmit dante reference range : 80.0 - 90.0 mm Hg. The reference r mayra was not used to interpret this result as normal/abnormal . SO2, Arterial-POC (test 92.0 % 96.0-97.0 L code = 1839) HCO3, Arterilal-POC 17.9 meq/L 21.0-29.0 L (test code = 1840) BE, Arterial-POC (test -7.0 meq/L -2.0-3.0 L : MARIO DANTE AT [facility] code = 1841) [address] [place] [place], [address]: Telecommunications Technician/Techni bart ID = [id number] for EDWARD ROLLINSA Lab Interpretation Abnormal (test code = 46296-3) [facility] CenterPOCT-BLOOD GASES, [id number] 17:41:12 Test Item Value Reference Range Interpretation [...] -7.0 meq/L -2.0-3.0 L : TESTED AT [facility] 6720 ARTERIAL-POC [facility], (BEAKER) (test code 18[address]: = 1841) Telecommunications Technician/Techni bart ID = [id number] for NAVDEEP SANTILLAN CT, CHEST, WITH [id number] 16:35:00Unlisted Reason for Exam - Click Yes and Enter Reason Below->YesUnlisted Reason for Exam->rapid 40 lb wt loss, concern for malignancy [facility] : 1945 Sex: MFINAL REPORT TECHNIQUE: CT scan of the chest WITH intravenous contrast. Dose modulation, iterative reconstruction, and/or weight-based adjustment of the mA/kV was utilized to reducethe radiation dose to as low as reasonably [...] 0.9 cm. No routine follow-up imaging is recommendedfor this finding. A nonobstructing left upper pole renal stone is punctate. IMPRESSION: 1.Small right and trace left pleural effusions. The bibasilar lung opacities are most likely atelectasis. The increased interstitial opacities of lungs are concerning for interstitial pulmonary edema. 2.The left atrium and ventricle are markedly dilated. 3.The layering hyperdense material in the gallbladder could be due to sludge or vicarious excretion of contrast if the patient has had a recent contrast-enhancedexamination. 4.Marked calcification of the left anterior descending coronary artery. 5.Calcified left pleural plaque could be related to prior asbestos exposure or infection. There are findings of prior granulomatous disease in the right lower lobe and right perihilar region. 6.A nonobstructing left upper pole renal stone is punctate. Signed: Nikhil Sotelo MDReport Verified Date/Time: 09/02/2021 16:35:31 Reading Location: [facility] B1 C013Y CT Body Reading Room BASIC METABOLIC [id number] 05:54:20 Test Item Value Reference Range Interpretation [...] 697) EGFR (BEAKER) (test 87 mL/min/1.73 ESTIMA DANTE GFR IS code = 1092) sq m NOT ACCURATE CREATININE CLEARANCE IN PREDICTING GLOMERULAR FILTRATION RATE . ESTIMATED GFR I S NOT APPLICABLE FOR DIALYSIS PATIEN TS. Telecommunications Technician ID - SHANE GCBC W/PLT COUNT & AUTO [id number] 05:27:33 Test Item Value Reference Range Interpretation [...] 0-1 PERCENT (BEAKER) (test code = 2801) [id number] 18:20:35 Test Item Value Reference Range Interpretation Comments Ferritin (test code = 36.01 ng/mL 5.00-275.00 2276-4) EMERSON (test code = EMERSON) Telecommunications Technician LOBITO FRANKMARIELA L Lab Interpretation (test Normal code = 64135-2) [facility] CenterFERRITIN2022-01-14 18:20:35 Test Item Value Reference Range Interpretation Comments FERRITIN (BEAKER) (test code = 36.01 ng/mL 5.00-275.00 361) Telecommunications Technician LOBITO Ardon, TIBC, % sat. (without ferritin)2021-09-01 18:00:19 Test Item Value Reference Range Interpretation Comments Iron (test code = 2498-4) 14.0 ug/dL 40.0-160.0 L TIBC (test code = 2500-7) 355 ug/dL 250-450 Iron % Saturation (test 4 % 20-55 L code = 2502-3) EMERSON (test code = EMERSON) Telecommunications Technician ID - KAYLEEN L Lab Interpretation (test Abnormal code = 47396-3) [facility] CenterIRON, TIBC, % SAT. (WITHOUT FERRITIN)2021-09-01 18:00:19 Test Item Value Reference Range Interpretation Comments IRON (BEAKER) (test code = 547) 14.0 ug/dL 40.0-160.0 L TOTAL IRON BINDING CAPACITY 355 ug/dL 250-450 (BEAKER) (test code = 769) IRON % SATURATION (2) (BEAKER) 4 % 20-55 L (test code = 2590) Telecommunications Technician ID - KAYLEEN L2D Echo W/Doppler(CW/PW/Color)2021-09-01 17:31:53Ejection FractionSLEH ECHO HEARTLAB MKCKESSON CPAAlhambra Hospital Medical CenterFL, ESOPH, SWALLOW FUNCTION, WITH CINE OR [id number] 12:11:00Reason for exam:- >TIMED BARIUIM SWALLOW at 1, 5 and 10 minutes with tablet for dysphagia w/ neg [facility]ESSanto BACH : 1945 Sex: MFINAL REPORT Timed barium swallow CLINICAL HISTORY: TIMED BARIUM SWALLOW at 1, 5and 10 minutes with tablet for dysphagia w/ neg EGD IMPRESSION: A barium pill is given to the patient to swallow. It stayed at the GE junction at 1, 5, 10 and 20 minutes. It passed into the stomach at 25 minutes. Fluoro time: None Number of images: 8 Signed: Malorie, Arin MDReport Verified Date/Time: 09/01/2021 12:11:08 Reading Location: [facility] B1 C013X Ortho Consult Reading Room HEPATIC FUNCTION [id number] 07:23:40 Test Item Value Reference Range Interpretation [...] (test code = 45 U/L 6-55 347) Telecommunications Technician ID - PIMARIELA [id number] 07:23:39 Test Item Value Reference Range Interpretation Comments MAGNESIUM (BEAKER) (test code = 2.3 mg/dL 1.6-2.6 627) Telecommunications Technician ID - KAYLEEN [id number] 07:23:39 Test Item Value Reference Range Interpretation Comments PHOSPHORUS (BEAKER) (test code = 3.8 mg/dL 2.3-4.7 604) Telecommunications Technician ID - PIMARIELA LBASIC METABOLIC [id number] 07:23:38 Test Item Value Reference Range Interpretation [...] 697) EGFR (BEAKER) (test 75 mL/min/1.73 ESTIMA DANTE GFR IS code = 1092) sq m NOT ACCURATE CREATININE CLEARANCE IN PREDICTING GLOMERULAR FILTRATION RATE . ESTIMATED GFR I S NOT APPLICABLE FOR DIALYSIS PATIEN TS. Telecommunications Technician ID - KAYLEEN LTSH/Free T4 If [id number] 06:55:05 Test Item Value Reference Range Interpretation Comments TSH (test code = 1.112 See_Comment [Automated 66848-9) message] The system which generated this result transmit dante reference range : 0.350 - 4.940 uIU/mL. The reference range was not used to interpret this result as normal/abnormal . EMERSON (test code = EMERSON) Telecommunications Technician ID - KAYLEEN L Lab Interpretation Normal (test code = 54220-5) [facility] CenterTSH/FREE T4 IF [id number] 06:55:05 Test Item Value Reference Range Interpretation Comments THYROID STIMULATING HORMONE 1.112 uIU/mL 0.350-4.940 (BEAKER) (test code = 772) Telecommunications Technician ID - KAYLEEN LPROTHROMBIN TIME/[id number] 06:24:18 Test Item Value Reference Range Interpretation Comments PROTIME (BEAKER) 17.9 seconds 11.9-14.2 H (test code = 759) INR (BEAKER) (test 1.51 See_Comment [Automat ed message] code = 370) The system Mocap[employer] generated this result transmitted ref erence range: <=5.90. The reference range was not used to int erpret this result as normal/abnormal . RECOMMENDED COUMADIN/WARFARIN INR THERAPY RANGESSTANDARD DOSE: 2.0 - 3.0 Includes: PROPHYLAXIS for venous thrombosis, systemic embolization; TREATMENT for venous thrombosis and/or pulmonary embolus.HIGH RISK: Target INR is 2.5-3.5 for patients with mechanical heart valves.CBC W/PLT COUNT & AUTO [id number] 06:22:43 Test Item Value Reference Range Interpretation [...] 0-1 PERCENT (BEAKER) (test code = 2801) SARS-CoV2/RT-PCR (Symptomatic ONLY)2021-08-31 15:45:18 Test Item Value Reference Interpretation Comments Range SARS-COV2/RT-PCR Negative Negative The SARS-Co V-2 (test code = target nucleic 92508-4) acids are not detected in thi s specimen. Negat zenaida results do not preclude SARS-C oV-2 infection and should not be u sed as the sole bas is for patient management decisions. Nega tive results must be combined with clinical observations, patient history , and epidemiolog ical information. A false negative result may occu r if a specimen is improperly collected, transported or handled. This S ARS CoV-2 test is a rapid, real-oskar e RT-PCR test intended for th e qualitative detection of nucleic acid fr om SARS-CoV-2 in a nasopharyngeal swab specimen collec dante from individual s suspected of COVID-19 by the ir healthcare provider. EMERSON (test code = This test has been EMERSON) authorized by FDA under an EUA for use by authorized laboratories. This test is only authorized for the duration of the declaration that circumstances exist justifying the authorization of emergency use of in vitro diagnostic tests for detection and/or diagnosis of COVID-19 under Section 564(b)(1) of the Federal Food, Drug and Cosmetic Act, 21 U.S.C. 360bbb-3(b)(1), unless the authorization is terminated or revoked sooner. Fact Sheet for Healthcare Providers: https://www.[employer]/Documents/Xp ert%20Xpress%20SAR S%20CoV-2/Fact%20S heets/302-3802%20S ARS-COV-2%20HEALTH CARE%20PROVIDERS%2 0FACT%20SHEET.pdf Fact Sheet for Healthcare Patients: https://www.[employer]/Documents/Xp ert%20Xpress%20SAR S%20CoV-2/Fact%20S heets/302-3801%20S ARS-COV-2%20PATIEN T%20FACT%20SHEET.p df Lab Interpretation Normal (test code = 94192-2) [facility]OV[facility] ([facility])2021-08-31 15:45:18 Test Item Value Reference Range Interpretation Comments SARS-COV2/RT-PCR Negative Negative The SARS-Co V-2 target (test code = nucleic acids a re not 0395823) detected in thi s specimen. Negative result [...] This SARS CoV-2 test is a rapid, real-time RT-PC R test intended for e qualitative detection of nu cleic acid from SARS-CoV-2 in a nasopharyngeal swab specimen collected from individuals suspected of CO VID-19 by [facility] provider. This test has been authorized by FDA under an EUA for use by authorized laboratories. This test is only authorized for the duration of the declaration that circumstances exist justifying the authorization of emergency use of in vitro diagnostic tests for detection and/or diagnosis of COVID-19 under Section 564(b)(1) of the Federal Food, Drug and Cosmetic Act, 21 U.S.C. 360bbb-3(b)(1), unless the authorization is terminated or revoked sooner. Fact Sheet for Healthcare Providers: https://www.[employer] m/Documents/Xpert%20Xpress%20SARS%20CoV-2/Fact%20Sheets/3023802%01GZKK-QLS-7%20 HEALTHCARE%20PROVIDERS%20FACT%20SHEET.pdf Fact Sheet for Healthcare Patients: https://www.[employer]/Documents/Xpert%20Xp ress%20SARS%20CoV-2/Fact%20Sheets/3023801%79NZJU-RYD-6%20PATIENT%20FACT%20SHEET .pdfHIGH SENSITIVITY TROPONIN [id number] 13:23:34 Test Item Value Reference Range Interpretation Comments HIGH SENSITIVITY 10 pg/ml See_Comment [Automated message] TROPONIN I (test code = The system which 5303261) generated this result transmitted ref erence range: <=35. Th e reference range was not used to int erpret this result as normal/abnormal . Telecommunications Technician ID - ADMINThe REPRESENTATIVE GOVERNMENT RELATIONS STAT High Sensitivity Troponin-I results should be used in conjunction with other diagnostic information such as ECG, clinical observations and information, and patientsymptoms to aid in the diagnosis of AL. [id number] 13:16:30 Test Item Value Reference Range Interpretation Comments PARTIAL THROMBOPLASTIN TIME 41.6 seconds 22.5-36.0 H (BEAKER) (test code = 760) BASIC METABOLIC [id number] 13:16:09 Test Item Value Reference Range Interpretation [...] 697) EGFR (BEAKER) (test 51 mL/min/1.73 ESTIMA DANTE GFR IS code = 1092) sq m NOT ACCURATE CREATININE CLEARANCE IN PREDICTING GLOMERULAR FILTRATION RATE . ESTIMATED GFR I S NOT APPLICABLE FOR DIALYSIS PATIEN TS. Telecommunications Technician ID - ADMINPROTHROMBIN TIME/[id number] 13:15:51 Test Item Value Reference Range Interpretation Comments PROTIME (BEAKER) 21.2 seconds 11.9-14.2 H (test code = 759) INR (BEAKER) (test 1.86 See_Comment [Automat ed message] code = 370) The system Mocap[employer] generated this result transmitted ref erence range: <=5.90. The reference range was not used to int erpret this result as normal/abnormal . RECOMMENDED COUMADIN/WARFARIN INR THERAPY RANGESSTANDARD DOSE: 2.0 - 3.0 Includes: PROPHYLAXIS for venous thrombosis, systemic embolization; TREATMENT for venous thrombosis and/or pulmonary embolus.HIGH RISK: Target INR is 2.5-3.5 for patients with mechanical heart valves.LACTIC ACID, [id number] 13:12:46 Test Item Value Reference Range Interpretation Comments LACTATE BLOOD VENOUS (2) (BEAKER) 1.73 mmol/L 0.50-2.20 (test code = 2872) Telecommunications Technician ID - ADMINCBC W/PLT COUNT & AUTO [id number] 12:54:05 Test Item Value Reference Range Interpretation [...] PERCENT (BEAKER) (test code = 2801) [place], [id number] 11:34:00Gastrografin studyReason for exam:->POST-OP PROBLEMpost endocscopy 1 month ago [facility] 1945 Sex: MFINAL REPORT Gastrografin esophagogram Clinical History: POST-OP PROBLEM Discussion: Gastrografin is given to the patient to drink, without difficulties. The esophageal motility, caliber, and gastroesophageal junction are normal. Esophageal mucosa is suboptimally evaluated, but appears unremarkable. There is no contrast extravasation. Fluoro time: 0.5 minutes Number of images obtained: 6 Signed: Arin Espana Verified Date/Time: 07/04/2021 11:34:49 Reading Location: [address] Consult Reading Room BASIC METABOLIC [id number] 04:39:36 Test Item Value Reference Range Interpretation [...] 697) EGFR (BEAKER) (test 85 mL/min/1.73 ESTIMA DANTE GFR IS code = 1092) sq m NOT ACCURATE CREATININE CLEARANCE IN PREDICTING GLOMERULAR FILTRATION RATE . ESTIMATED GFR I S NOT APPLICABLE FOR DIALYSIS PATIEN TS. Telecommunications Technician ID - MARZENA MSARS-COV2/RT-PCR ([facility])2021-07-03 17:50:45 Test Item Value Reference Range Interpretation Comments SARS-COV2/RT-PCR Negative Negative The SARS-Co V-2 target (test code = nucleic acids a re not 5774383) detected in thi s specimen. Negative result [...] This SARS CoV-2 test is a rapid, real-time RT-PC R test intended for th e qualitative detection [...] Food, Drug and Cosmetic Act, 21 U.S.C. 360bbb-3(b)(1), unless the authorization is terminated or revoked sooner. Fact Sheet for Healthcare Providers: https://www.[employer] m/Documents/Xpert%20Xpress%20SARS%20CoV-2/Fact%20Sheets/302-3802%49QKSQ-GDV-9%20 HEALTHCARE%20PROVIDERS%20FACT%20SHEET.pdf Fact Sheet for Healthcare Patients: https://www.[employer]/Documents/Xpert%20Xp ress%20SARS%20CoV-2/Fact%20Sheets/302-3801%84GTUV-IRO-3%20PATIENT%20FACT%20SHEET .pdfD-dimer, raaahehrietd3486-22-04 17:04:25 Test Item Value Reference Range Interpretation Comments D-Dimer, Quant (test <0.27 See_Comment [Autom ated code = 47843-4) message] The system which generated this result transmitted reference range : <0.50 MG/L FEU. The reference range was not used to interpr et this result as normal/abnormal . EMERSON (test code = EMERSON) Intended Use: The D-Dimer Assay can be used to aid in the diagnosis of Deep Vein Thrombosis (DVT) and Pulmonary Embolism Disease (PED).In patients with low pre-test probability, various studies concerning STA Liatest D-dimer test have reported that with a cutoff value of 0.50 MG/L FEU, the Negative Predictive Value (NPV) regarding the exclusion of thrombosis is within 95-100% range. Lab Interpretation Normal (test code = 92626-1) [facility] CenterD-[id number] 17:04:25 Test Item Value Reference Range Interpretation [...] of thrombosis is within 95-100% range.BLOOD GAS, [id number] 16:22:57 Test Item Value Reference Range Interpretation [...] code = 1819) 21.0 RAD, CHEST, 2 [id number] 14:40:00Reason for exam:->CHEST PAIN since endoscopy a month ag[facility]ost endocscopy 1 month [facility] 1945 Sex: MFINAL REPORT EXAM: Chest one view COMPARISON: May 15, 2021 CLINICAL HISTORY: Chest pain FINDINGS: Minimal blunting of bilateral posterior costophrenic sulci are noted which may represent small effusions. The cardiac size remains enlarged. There is no evidence of pulmonary consolidation or pneumothorax. The regional osseous structures are unremarkable. Signed: Romeo Ackerman Verified Date/Time: 07/03/2021 14:40:03 [id number] 14:12:25 Test Item Value Reference Range Interpretation Comments Lipase (test code = 3040-3) 22 U/L 8-78 EMERSON (test code = EMERSON) Telecommunications Technician ID - DB Lab Interpretation (test Normal code = 86110-3) [facility] 14:12:25 Test Item Value Reference Range Interpretation Comments LIPASE (BEAKER) (test code = 749) 22 U/L 8-78 Telecommunications Technician ID - DBCOMPREHENSIVE METABOLIC [id number] 14:12:24 Test Item Value Reference Range Interpretation [...] 347) EGFR (BEAKER) (test 76 mL/min/1.73 ESTIMA DANTE GFR IS code = 1092) sq m NOT ACCURATE CREATININE CLEARANCE IN PREDICTING GLOMERULAR FILTRATION RATE . ESTIMATED GFR I S NOT APPLICABLE FOR DIALYSIS PATIEN TS. Telecommunications Technician ID - DBHIGH SENSITIVITY TROPONIN [id number] 14:10:43 Test Item Value Reference Range Interpretation Comments HIGH SENSITIVITY 7 pg/ml See_Comment [Automated message] TROPONIN I (test code = The system which [id number]) generated this result transmitted ref erence range: <=35. Th e reference range was not used to interpr et this result as normal/abnormal . Telecommunications Technician ID - RMThe REPRESENTATIVE GOVERNMENT RELATIONS STAT High Sensitivity Troponin-I results should be used in conjunctionwith other diagnostic information such as ECG, clinical observations and information, and patient symptoms to aid in the diagnosis of AL.B-TYPE NATRIURETIC FACTOR (BNP)2021-07-03 14:09:26 Test Item Value Reference Range Interpretation Comments B-TYPE NATRIURETIC PEPTIDE (BEAKER) 515 pg/mL 0-100 H (test code = 700) Telecommunications Technician ID - RMCBC W/PLT COUNT & AUTO [id number] 13:39:07 Test Item Value Reference Range Interpretation [...] (BEAKER) (test code = 2801) HEMOGLOBIN AND [id number] 05:07:16 Test Item Value Reference Range Interpretation Comments HEMOGLOBIN (BEAKER) (test code = 7.9 GM/DL 13.7-17.5 L 410) HEMATOCRIT (BEAKER) (test code = 26.4 % 40.1-51.0 L 411) Telecommunications Technician ID - [id number] AND [id number] 18:44:57 Test Item Value Reference Range Interpretation Comments HEMOGLOBIN (BEAKER) (test code = 8.7 GM/DL 13.7-17.5 L 410) HEMATOCRIT (BEAKER) (test code = 29.7 % 40.1-51.0 L 411) Telecommunications Technician ID - [id number] AND [id number] 11:29:37 Test Item Value Reference Range Interpretation Comments HEMOGLOBIN (BEAKER) (test code = 8.3 GM/DL 13.7-17.5 L 410) HEMATOCRIT (BEAKER) (test code = 28.5 % 40.1-51.0 L 411) Telecommunications Technician ID - 6000HEMOGLOBIN AND [id number] 04:51:37 Test Item Value Reference Range Interpretation Comments HEMOGLOBIN (BEAKER) (test code = 7.9 GM/DL 13.7-17.5 L 410) HEMATOCRIT (BEAKER) (test code = 26.9 % 40.1-51.0 L 411) Telecommunications Technician ID - [id number] AND [id number] 16:42:26 Test Item Value Reference Range Interpretation Comments HEMOGLOBIN (BEAKER) (test code = 8.6 GM/DL 13.7-17.5 L 410) HEMATOCRIT (BEAKER) (test code = 29.4 % 40.1-51.0 L 411) Telecommunications Technician ID - 6000BASIC METABOLIC [id number] 09:04:40 Test Item Value Reference Range Interpretation [...] 697) EGFR (BEAKER) (test 77 mL/min/1.73 ESTIMA DANTE GFR IS code = 1092) sq m NOT ACCURATE CREATININE CLEARANCE IN PREDICTING GLOMERULAR FILTRATION RATE . ESTIMATED GFR I S NOT APPLICABLE FOR DIALYSIS PATIEN TS. Telecommunications Technician ID - ROSIANGHEMOGLOBIN AND [id number] 08:41:52 Test Item Value Reference Range Interpretation Comments HEMOGLOBIN (BEAKER) (test code = 7.6 GM/DL 13.7-17.5 L 410) HEMATOCRIT (BEAKER) (test code = 26.5 % 40.1-51.0 L 411) Telecommunications Technician ID - [id number]-COV2/RT-PCR ([facility])2021-05-23 19:59:55 Test Item Value Reference Range Interpretation Comments SARS-COV2/RT-PCR Negative Negative The SARS-Co V-2 target (test code = nucleic acids a re not [id number]) detected in thi s specimen. Negative result [...] This SARS CoV-2 test is a rapid, real-time RT-PC R test intended for th e qualitative detection [...] Food, Drug and Cosmetic Act, 21 U.S.C. 360bbb-3(b)(1), unless the authorization is terminated or revoked sooner. Fact Sheet for Healthcare Providers: https://www.[employer] m/Documents/Xpert%20Xpress%20SARS%20CoV-2/Fact%20Sheets/3023802%83VXQM-VLF-0%20 HEALTHCARE%20PROVIDERS%20FACT%20SHEET.pdf Fact Sheet for Healthcare Patients: https://www.[employer]/Documents/Xpert%20Xp ress%20SARS%20CoV-2/Fact%20Sheets/3023801%14SSMS-SVF-3%20PATIENT%20FACT%20SHEET .pdfCOMPREHENSIVE METABOLIC [id number] 17:17:21 Test Item Value Reference Range Interpretation [...] 347) EGFR (BEAKER) (test 68 mL/min/1.73 ESTIMA DANTE GFR IS code = 1092) sq m NOT ACCURATE CREATININE CLEARANCE IN PREDICTING GLOMERULAR FILTRATION RATE . ESTIMATED GFR I S NOT APPLICABLE FOR DIALYSIS PATIEN TS. Telecommunications Technician ID - LUDA [id number] 17:17:21 Test Item Value Reference Range Interpretation Comments LIPASE (BEAKER) (test code = 749) 31 U/L 8-78 Telecommunications Technician ID - LUDA FPT/[id number] 16:55:15 Test Item Value Reference Range Interpretation [...] RANGESSTANDARD DOSE: 2.0 - 3.0 Includes: PROPHYLAXIS for venous thrombosis, systemic embolization; TREATMENT for venous thrombosis and/or pulmonary embolus.HIGH RISK: Target INR is 2.5-3.5 for patients with mechanical heart valves.CBC W/PLT COUNT & AUTO [id number] 16:37:06 Test Item Value Reference Range Interpretation [...] (BEAKER) (test code = 2801) BASIC METABOLIC [id number] 04:38:30 Test Item Value Reference Range Interpretation [...] 697) EGFR (BEAKER) (test 71 mL/min/1.73 ESTIMA DANTE GFR IS code = 1092) sq m NOT ACCURATE CREATININE CLEARANCE IN PREDICTING GLOMERULAR FILTRATION RATE . ESTIMATED GFR I S NOT APPLICABLE FOR DIALYSIS PATIEN TS. Telecommunications Technician ID - DBCBC W/PLT COUNT & AUTO [id number] 04:21:40 Test Item Value Reference Range Interpretation [...] (BEAKER) (test code = 2801) BASIC METABOLIC [id number] 07:03:04 Test Item Value Reference Range Interpretation [...] 697) EGFR (BEAKER) (test 77 mL/min/1.73 ESTIMA DANTE GFR IS code = 1092) sq m NOT ACCURATE CREATININE CLEARANCE IN PREDICTING GLOMERULAR FILTRATION RATE . ESTIMATED GFR I S NOT APPLICABLE FOR DIALYSIS PATIEN TS. Telecommunications Technician ID - PIAYA LCBC (HEMOGRAM ONLY)2021-05-17 04:38:47 [...] (BEAKER) (test code = 413) HEMOGLOBIN AND [id number] 20:18:40 Test Item Value Reference Range Interpretation Comments HEMOGLOBIN (BEAKER) (test code = 7.7 GM/DL 13.7-17.5 L 410) HEMATOCRIT (BEAKER) (test code = 25.7 % 40.1-51.0 L 411) Telecommunications Technician ID - [id number] METABOLIC [id number] 06:32:43 Test Item Value Reference Range Interpretation [...] 697) EGFR (BEAKER) (test 78 mL/min/1.73 ESTIMA DANTE GFR IS code = 1092) sq m NOT ACCURATE CREATININE CLEARANCE IN PREDICTING GLOMERULAR FILTRATION RATE . ESTIMATED GFR I S NOT APPLICABLE FOR DIALYSIS PATIEN TS. Telecommunications Technician ID - MARZENA MCBC W/PLT COUNT & AUTO [id number] 06:09:12 Test Item Value Reference Range Interpretation [...] (BEAKER) (test code = 2801) HEMOGLOBIN AND [id number] 00:13:44 Test Item Value Reference Range Interpretation Comments HEMOGLOBIN (BEAKER) (test code = 8.0 GM/DL 13.7-17.5 L 410) HEMATOCRIT (BEAKER) (test code = 28.1 % 40.1-51.0 L 411) Telecommunications Technician ID - [id number]-COV2/RT-PCR ([facility])2021-05-15 18:07:21 Test Item Value Reference Range Interpretation Comments SARS-COV2/RT-PCR Negative Negative The SARS-Co V-2 target (test code = nucleic acids a re not [id number]) detected in thi s specimen. Negative result [...] This SARS CoV-2 test is a rapid, real-time RT-PC R test intended for th e qualitative detection [...] Food, Drug and Cosmetic Act, 21 U.S.C. 360bbb-3(b)(1), unless the authorization is terminated or revoked sooner. Fact Sheet for Healthcare Providers: https://www.[employer]/Documents/Xpert%20Xpress%20SARS%20CoV-2/Fact%20Sheets/302-3802%66NBZG-OZT-5%2 0HEALTHCARE%20PROVIDERS%20FACT%20SHEET.pdf Fact Sheet for Healthcare Patients: https://www.[employer]/Documents/Xpert%20X press%20SARS%20CoV-2/Fact%20Sheets/302-3801%11SNKZ-YJI-4%20PATIENT%20FACT%20SHEE T.pdfHIGH SENSITIVITY TROPONIN [id number] 15:44:19 Test Item Value Reference Range Interpretation Comments HIGH SENSITIVITY 6 pg/ml See_Comment [Automated message] TROPONIN I (test code = The system which [id number]) generated this result transmitted ref erence range: <=35. Th e reference range was not used to interpr et this result as normal/abnormal . Telecommunications Technician ID - DBThe REPRESENTATIVE GOVERNMENT RELATIONS STAT High Sensitivity Troponin-I results should be used in conjunctionwith other diagnostic information such as ECG, clinical observations and information, and patient symptoms to aid in the diagnosis of AL.[id number] 15:36:53 Test Item Value Reference Range Interpretation Comments MAGNESIUM (BEAKER) (test code = 2.1 mg/dL 1.6-2.6 627) Telecommunications Technician ID - [id number] 15:36:53 Test Item Value Reference Range Interpretation Comments PHOSPHORUS (BEAKER) (test code = 3.3 mg/dL 2.3-4.7 604) Telecommunications Technician ID - DBCOMPREHENSIVE METABOLIC [id number] 15:36:52 Test Item Value Reference Range Interpretation [...] 347) EGFR (BEAKER) (test 72 mL/min/1.73 ESTIMA DANTE GFR IS code = 1092) sq m NOT ACCURATE CREATININE CLEARANCE IN PREDICTING GLOMERULAR FILTRATION RATE . ESTIMATED GFR I S NOT APPLICABLE FOR DIALYSIS PATIEN TS. Telecommunications Technician ID - DBCBC W/PLT COUNT & AUTO [id number] 15:12:30 Test Item Value Reference Range Interpretation [...] = 2801) RAD, CHEST, 1 VIEW, NON [id number] 13:55:00Reason for exam:->MELENAReason for exam:->GENERAL ILLNESSReason for exam:->GENERALIZED WEAKNESS, NOT ASSOCIATED WITH EXTREMITIESShould this be performed at the bedside?->Yes [facility] 1945 Sex: MFINAL REPORT INDICATION: MELENAGENERAL ILLNESSGENERALIZED WEAKNESS, NOT ASSOCIATED WITH EXTREMITIES COMPARISON: 05/01/2021 TECHNIQUE: Single frontal view of the chest. FINDINGS: Lungs and pleura: Clear lungs. No effusion.Heart and mediastinum: Normal heart size. Unremarkable mediastinal contours.Osseous structures: No acute abnormality.Other: None. IMPRESSION: No acute intrathoracic abnormality. Signed: Gaby Corderoeport Verified Date/Time: 05/15/2021 13:55:04 Reading Location: [facility] Reading Room MAGNESIUM 2021-05-10 07:19:33 Test Item Value Reference Range Interpretation Comments MAGNESIUM (BEAKER) (test code = 2.4 mg/dL 1.6-2.6 627) Telecommunications Technician ID - PIAYA LBASIC METABOLIC [id number] 07:19:32 Test Item Value Reference Range Interpretation [...] 697) EGFR (BEAKER) (test 53 mL/min/1.73 ESTIMA DANTE GFR IS code = 1092) sq m NOT ACCURATE CREATININE CLEARANCE IN PREDICTING GLOMERULAR FILTRATION RATE . ESTIMATED GFR I S NOT APPLICABLE FOR DIALYSIS PATIEN TS. Telecommunications Technician ID - PIAYA LCBC W/PLT COUNT & AUTO [id number] 06:34:22 Test Item Value Reference Range Interpretation [...] (test code = 2801) UREA NITROGEN, RANDOM [id number] 17:46:02 Test Item Value Reference Range Interpretation Comments UREA NITROGEN URINE (BEAKER) (test 404 mg/dL code = 538) Reference Range: No NormalsOperator ID - BSSODIUM, RANDOM [id number] 17:46:01 Test Item Value Reference Range Interpretation Comments SODIUM URINE (BEAKER) (test code = 101 meq/L 243) Reference Range: No NormalsOperator ID - BSCREATININE, RANDOM [id number] 17:46:00 Test Item Value Reference Range Interpretation Comments CREATININE URINE (BEAKER) (test 61.7 mg/dL code = 375) Reference Range: No NormalsOperator ID - BSURINALYSIS WITH MICROSCOPIC IF [id number] 16:41:11 Test Item Value Reference Range Interpretation [...] = 463) SOURCE(BEAKER) (test code = 2795) Telecommunications Technician ID - [auto]BLOOD [id number] 11:01:01 Test Item Value Reference Range Interpretation Comments CULTURE (BEAKER) (test No growth in 5 days code = 1095) BLOOD [id number] 11:01:01 Test Item Value Reference Range Interpretation Comments CULTURE (BEAKER) (test No growth in 5 days code = 1095) The specimen volume collected for this blood culture was below the optimum (10 mL per bottle or 20 mL total). Use of lower volumes may adversely affect recovery and/or detection times of some organisms.[id number] 05:38:27 Test Item Value Reference Range Interpretation Comments MAGNESIUM (BEAKER) (test code = 2.3 mg/dL 1.6-2.6 627) Telecommunications Technician ID - PIAYA LBASIC METABOLIC [id number] 05:38:26 Test Item Value Reference Range Interpretation [...] 697) EGFR (BEAKER) (test 49 mL/min/1.73 ESTIMA DANTE GFR IS code = 1092) sq m NOT ACCURATE CREATININE CLEARANCE IN PREDICTING GLOMERULAR FILTRATION RATE . ESTIMATED GFR I S NOT APPLICABLE FOR DIALYSIS PATIEN TS. Telecommunications Technician ID - PIAYA LPROTHROMBIN TIME/[id number] 05:23:25 Test Item Value Reference Range Interpretation Comments PROTIME (BEAKER) 16.9 seconds 11.9-14.2 H (test code = 759) INR (BEAKER) (test 1.39 See_Comment [Automat ed message] code = 370) The system [employer] generated this result transmitted ref erence range: <=5.90. The reference range was not used to int erpret this result as normal/abnormal . RECOMMENDED COUMADIN/WARFARIN INR THERAPY RANGESSTANDARD DOSE: 2.0 - 3.0 Includes: PROPHYLAXIS for venous thrombosis, systemic embolization; TREATMENT for venous thrombosis and/or pulmonary embolus.HIGH RISK: Target INR is 2.5-3.5 for patients with mechanical heart valves.CBC W/PLT COUNT & AUTO [id number] 05:22:39 Test Item Value Reference Range Interpretation [...] (BEAKER) (test code = 2801) COMPREHENSIVE METABOLIC [id number] 16:17:38 Test Item Value Reference Range Interpretation [...] 347) EGFR (BEAKER) (test 46 mL/min/1.73 ESTIMA DANTE GFR IS code = 1092) sq m NOT ACCURATE CREATININE CLEARANCE IN PREDICTING GLOMERULAR FILTRATION RATE . ESTIMATED GFR I S NOT APPLICABLE FOR DIALYSIS PATIEN TS. Telecommunications Technician ID - DBSARS-COV2/RT-PCR ([facility])2021-05-08 12:32:16 Test Item Value Reference Range Interpretation Comments SARS-COV2/RT-PCR (test Negative Not Detected, Negative, code = 1337622) See external report for linked test SARS-COV-2 PERFORMING LAB [facility] (test code = 4619042) Negative result for this test determines that SARS-CoV-2 RNA was not present in the specimen above the Limit of Detection (LOD). However, Negative results do not preclude SARS-CoV-2 infection and should not be used as the sole basis for treatment or patient management decisions. Negative results must be combined with clinical observations, patient history, and [...] swab specimen collected from individuals suspected of COVID-19 by their healthcare provider.This test [...] justifying the authorization of the emergency use ofin vitro diagnostic tests for detection and/or diagnosis of COVID-19 is terminated under Section 564(b)(2) of the Act or the EUA is revoked under Section 564(g) of the Act.Fact Sheet for Healthcare Prov iders:https://www.[employer]/sites/default/files/product/documents/Fact_Sheet_HC _Ysoiounoe_Kmua_BSUM-ClE-9.pdfFact Sheet for Healthcare Patients:https://www.[employer]/sites/default/files/product/docume nts/Thfm_Dxqkr_Isflqshh_Ehmk_HGLK-FoG-5.pdfPerforming Laboratory:[facility], [place] [address]NKO (HEMOGRAM ONLY) 2021-05-08 06:41:47 Test Item Value [...] code = 413) MYOCARD IMAGING, MULTI, PHARM, [id number] 13:41:00Unlisted Reason for Exam - Click Yes and Enter Reason Below->No [facility] 1945 Sex: MFINAL REPORT PROCEDURE: Rest/Stress MYOCARDIAL PERFUSION SPECT with regadenoson\\XA9\\ CPT CODE: 51778 INDICATION: Chest pain PROTOCOL: 10.6 mCi of Tc-99m sestamibi was injected iv atrest, and SPECT (tomographic) images were obtained. Also, 30.7 mCi of Tc-99m sestamibi was injected iv at expected peak pharmacologic effect. SPECT images were obtained. Functional images were not obtained due to gating irregularity. PRELIMINARY STRESS TEST DATA FROM NONINVASIVE CARDIOLOGY: Pharmacologic stress was by 10-second iv infusion of 0.4 mg of regadenoson. Radiotracer was injected 30 secondsafter start of stress. Heart rate was 104 beats/min at rest and 115 beats/min (80 % of MPHR) at tracer injection. BP was 156/89 mmHg at rest and 156/74 mmHg at tracer injection. Stress was stopped for predetermined endpoint. [...] 4. No prior study. Signed: Ishmael Collado [facility] Verified Date/Time: 05/07/2021 13:41:19 CBC (HEMOGRAM ONLY) 2021-05-07 06:26:24 Test Item Value Reference Range Interpretation [...] (BEAKER) (test code = 413) BASIC METABOLIC [id number] 06:10:10 Test Item Value Reference Range Interpretation [...] 697) EGFR (BEAKER) (test 69 mL/min/1.73 ESTIMA DANTE GFR IS code = 1092) sq m NOT ACCURATE CREATININE CLEARANCE IN PREDICTING GLOMERULAR FILTRATION RATE . ESTIMATED GFR I S NOT APPLICABLE FOR DIALYSIS PATIEN TS. Telecommunications Technician ID - SHANE GCBC (HEMOGRAM ONLY)2021-05-06 05:35:30 [...] 0-0 H (BEAKER) (test code = 413) [id number] 17:04:33 Test Item Value Reference Range Interpretation Comments PARTIAL THROMBOPLASTIN TIME 75.5 seconds 22.5-36.0 H (BEAKER) (test code = 760) [id number] 08:48:29 Test Item Value Reference Range Interpretation Comments PARTIAL THROMBOPLASTIN TIME 39.1 seconds 22.5-36.0 H (BEAKER) (test code = 760) [id number] 07:02:01 Test Item Value Reference Range Interpretation [...] (BEAKER) (test code = 413) BASIC METABOLIC [id number] 06:36:45 Test Item Value Reference Range Interpretation [...] 697) EGFR (BEAKER) (test 69 mL/min/1.73 ESTIMA DANTE GFR IS code = 1092) sq m NOT ACCURATE CREATININE CLEARANCE IN PREDICTING GLOMERULAR FILTRATION RATE . ESTIMATED GFR I S NOT APPLICABLE FOR DIALYSIS PATIEN TS. Telecommunications Technician ID - SHANE [id number] 22:11:03 Test Item Value Reference Range Interpretation Comments PARTIAL THROMBOPLASTIN TIME 88.2 seconds 22.5-36.0 H (BEAKER) (test code = 760) PERIPHERAL BLOOD SMEAR - PATHOLOGIST [id number] 18:22:51 Test Item Value Reference Range Interpretation Comments PERIPHERAL SMR Microcytic hypochromic REVIEW (BEAKER) anemia with marked (test code = 2640) anisopoikilocytosis and polychromasia, consistent with history of LEESA. Leukocytosis with predominantly mature granulocytes. No blasts seen. Adequate platelets with unremarkable morphology. [id number]-[id number]-6 Andreina Schmidt, 112 (BEAKER) (test M.D code [...] (BEAKER) (test code 2+ moderate = 966) [id number] 12:13:05 Test Item Value Reference Range Interpretation Comments PARTIAL THROMBOPLASTIN TIME 55.6 seconds 22.5-36.0 H (BEAKER) (test code = 760) TISSUE [id number] 11:53:42Surgical Pathology Report Case: [id number] Authorizing Provider: Yolanda Lyle MD Collected: 05/03/2021 10:38 AM Ordering Location: [address] Received: 05/03/2021 02:25 PM Service Pathologist: Ciro Diamond MD Specimen: Polyp, Colon - Right/Ascending, x3 PART A RIGHT ASCENDING COLON POLYPX3, POLYPECTOMY:TUBULAR ADENOMA Signing Pathologist Direct Phone Line: [phone] signed by Ciro Diamond MD on 05/04/2021 at 11:53 [id number] colonReceived in formalin labeled the patient's name, accession number and "ascending colon polyp" are multiple chavez soft tissue fragments measuring up to 0.5 cm in greatest dimension which are filtered and submitted in toto in A1.URSULA Martell, HT (ASCP)performedylKaiser Permanente [facility], Department of Pathology, [address] [place] [address], [facility], [facility] of [facility], [address] [place] [address], [facility], Department of Pathology, [address] [place] [address], [id number] 11:13:03 Test Item Value Reference Range Interpretation Comments PARTIAL THROMBOPLASTIN TIME > seconds 22.5-36.0 HH (BEAKER) (test code = 760) URINALYSIS [id number] 10:30:34 Test Item Value Reference Range Interpretation Comments RBC UA (BEAKER) (test code = 519) 3 /HPF WBC UA (BEAKER) (test code = 520) 2 /HPF BACTERIA (BEAKER) (test code = None Seen 517) MUCUS (BEAKER) (test code = 1574) Moderate CRYSTALS, URINE (BEAKER) (test None Seen code = 1521) AMORPHOUS CRYSTALS (BEAKER) (test Occasional code = 1584) Telecommunications Technician ID - techURINALYSIS WITH MICROSCOPIC IF [id number] 10:23:22 Test Item Value Reference Range Interpretation [...] = 463) SOURCE(BEAKER) (test code = 2795) Telecommunications Technician ID - [auto]BASIC METABOLIC [id number] 06:55:55 Test Item Value Reference Range Interpretation [...] 697) EGFR (BEAKER) (test 70 mL/min/1.73 ESTIMA DANTE GFR IS code = 1092) sq m NOT ACCURATE CREATININE CLEARANCE IN PREDICTING GLOMERULAR FILTRATION RATE . ESTIMATED GFR I S NOT APPLICABLE FOR DIALYSIS PATIEN TS. Telecommunications Technician ID - SHANE GCBC (HEMOGRAM ONLY)2021-05-04 06:35:01 [...] 0-0 (BEAKER) (test code = 413) BLOOD [id number] 18:01:00 Test Item Value Reference Range Interpretation Comments CULTURE (BEAKER) (test No growth in 5 days code = 1095) BLOOD [id number] 18:00:59 Test Item Value Reference Range Interpretation Comments CULTURE (BEAKER) (test No growth in 5 days code = 1095) TISSUE [id number] 17:23:09Surgical Pathology Report Case: [id number] Authorizing Provider: Yolanda Lyle MD Collected: 05/02/2021 03:08 PM Ordering Location: [address] Received: 05/03/2021 09:22 AM Service Pathologist: Ciro Diamond MD Specimens: A) - Duodenum, r/o celiac B) - Biopsy, Gastric C) - Biopsy, Gastric, fundus D) [...] FOCAL INTESTINAL (GOBLET CELL) METAPLASIA.NEGATIVE FOR DYSPLASIA OR INVASIVE CARCINOMA. Signing Pathologist Direct Phone Line: [phone] signed byCiro Diamond MD on 05/03/2021 at 5:23 [id number], [id number] iron deficiency anemiaA. Duod enum tissue, rule out celiacB. Biopsy, gastric tissueC. Biopsy, gastric tissue fundusD. Biopsy, gastroesophageal junction, rule out Ruby's A. Received in formalin labeled with the patient's name, accession number and "duodenum" are three chavez-pink tissues ranging from 0.2 to 0.4 cm in greatest dimension. The specimen is submitted in toto following filtration in cassette A1.B. Received in formalin labeled with the patient's name, accession number and "biopsy, gastric" are three chavez-pink tissues ranging from 0.2 to 0.3 cm in greatest dimension. The specimen is submitted in toto following filtrationin cassette B1.C. Received in formalin labeled with the patient's name, accession number "gastric biopsy tissue" is a single chavez-pink tissue measuring 0.3 cm in greatest dimension. The specimen is submitted in toto following filtration in cassette C1.D. Received in formalin labeled "biopsy, gastroesophageal junction" are two nieves-white to red-brown tissues ranging each measuring 0.1 cm in greatest dim ension. The specimen is submitted in toto following filtration in cassette D1. KM/ewPERFORMEDThe interpretation of this case included the use of immunohistochemistry or special stains.BLOCK B1- WARTHINSTARRYBLOCK C1- WARTHIN STARRYControl Slides Examined: In-house known positive controls were evaluated along with the test tissue. These control slides run alongside of the patients sample show appropriate staining. Internal positive and negative controls when available are evaluated Immunohistochemistry technical testing was performed at [facility], Pathology Laboratory where it was developed and [...] qualified to perform high complexity clinical laboratory testing.[facility], Department of Pathology, [address] [place] [id number], [facility], [address] [place] [address], [facility], [address] [place] [address], GBMYK METABOLIC PANEL 2021-05-03 06:21:43 Test Item Value [...] 697) EGFR (BEAKER) (test 68 mL/min/1.73 ESTIMA DANTE GFR IS code = 1092) sq m NOT ACCURATE CREATININE CLEARANCE IN PREDICTING GLOMERULAR FILTRATION RATE . ESTIMATED GFR I S NOT APPLICABLE FOR DIALYSIS PATIEN TS. Telecommunications Technician ID - MARZENA MTSH/FREE T4 IF [id number] 05:55:30 Test Item Value Reference Range Interpretation Comments THYROID STIMULATING HORMONE 0.869 uIU/mL 0.350-4.940 (BEAKER) (test code = 772) Telecommunications Technician ID - MARZENA MB-TYPE NATRIURETIC FACTOR (BNP)2021-05-03 05:32:14 Test Item Value Reference Range Interpretation Comments B-TYPE NATRIURETIC PEPTIDE (BEAKER) 452 pg/mL 0-100 H (test code = 700) Telecommunications Technician ID - MARZENA MCBC (HEMOGRAM ONLY)2021-05-03 05:22:14 [...] CONCENTRATION Adequate (CELLAVISION)(BEAKER) (test code = 3438) Telecommunications Technician ID - Luca Perry comments: Slide comments:CBC W/PLT COUNT & AUTO [id number] 11:59:17 Test Item Value Reference Range Interpretation [...] (BEAKER) (test code = 413) BASIC METABOLIC [id number] 09:20:42 Test Item Value Reference Range Interpretation [...] 697) EGFR (BEAKER) (test 60 mL/min/1.73 ESTIMA DANTE GFR IS code = 1092) sq m NOT ACCURATE CREATININE CLEARANCE IN PREDICTING GLOMERULAR FILTRATION RATE . ESTIMATED GFR I S NOT APPLICABLE FOR DIALYSIS PATIEN TS. Telecommunications Technician ID - KEARA WPT/[id number] 09:05:40 Test Item Value Reference Range Interpretation [...] RANGESSTANDARD DOSE: 2.0 - 3.0 Includes: PROPHYLAXIS for venous thrombosis, systemic embolization; TREATMENT for venous thrombosis and/or pulmonary embolus.HIGH RISK: Target INR is 2.5-3.5 for patients with mechanical heart valves.SARS-COV2/RT-PCR ([facility]) 2021-05-01 12:34:25 Test Item Value Reference Range Interpretation Comments SARS-COV2/RT-PCR (test Negative Not Detected, Negative, code = 5853100) See external report for linked test SARS-COV-2 PERFORMING LAB [facility] (test code = 9898966) Negative result for this test determines that SARS-CoV-2 RNA was not present in the specimen above the Limit of Detection (LOD). However, Negative results do not preclude SARS-CoV-2 infection and should not be used as the sole basis for treatment or patient management decisions. Negative results must be combined with clinical observations, patient history, and [...] swab specimen collected from individuals suspected of COVID-19 by their healthcare provider.This test [...] justifying the authorization of the emergency use ofin vitro diagnostic tests for detection and/or diagnosis of COVID-19 is terminated under Section 564(b)(2) of the Act or the EUA is revoked under Section 564(g) of the Act.Fact Sheet for Healthcare Prov iders:https://www.Culturalite.Wimdu/sites/default/files/product/documents/Fact_Sheet_HC _Oltoxxijd_Mlkp_AEAZ-KhV-4.pdfFact Sheet for Healthcare Patients:https://www.uberall/sites/default/files/product/docume nts/Zshs_Yizuc_Pkuoxlhe_Pwaj_QOMK-JyB-1.pdfPerforming Laboratory:[facility], [place] [address]TCY, CHEST, 1 VIEW, NON [id number] 09:29:00Reason for exam:->shortness of breathShould this be performed at the bedside?->Yes [facility] 1945 Sex: MFINAL REPORT Chest AP portable History provided: Shortness of breath Heart size magnified by projection. Lungs are clear and vascularity normal. Signed: Reji Jeffers Verified Date/Time: 05/01/2021 09:29:27 Reading Location: [facility] Radiology Reading Room CBC (HEMOGRAM ONLY)2021-05-01 [...] (BEAKER) (test code = 413) BASIC METABOLIC [id number] 06:24:43 Test Item Value Reference Range Interpretation [...] 697) EGFR (BEAKER) (test 72 mL/min/1.73 ESTIMA DANTE GFR IS code = 1092) sq m NOT ACCURATE CREATININE CLEARANCE IN PREDICTING GLOMERULAR FILTRATION RATE . ESTIMATED GFR I S NOT APPLICABLE FOR DIALYSIS PATIEN TS. Telecommunications Technician ID - PIAYA LBASIC METABOLIC [id number] 15:17:17 Test Item Value Reference Range Interpretation [...] 697) EGFR (BEAKER) (test 59 mL/min/1.73 ESTIMA DANTE GFR IS code = 1092) sq m NOT ACCURATE CREATININE CLEARANCE IN PREDICTING GLOMERULAR FILTRATION RATE . ESTIMATED GFR I S NOT APPLICABLE FOR DIALYSIS PATIEN TS. Telecommunications Technician ID - DBCBC W/PLT COUNT & AUTO [id number] 14:42:15 Test Item Value Reference Range Interpretation [...] (BEAKER) (test code = 2801) HEMOGLOBIN AND [id number] 14:41:31 Test Item Value Reference Range Interpretation Comments HEMOGLOBIN (BEAKER) (test code = 9.7 GM/DL 13.7-17.5 L 410) HEMATOCRIT (BEAKER) (test code = 33.4 % 40.1-51.0 L 411) Telecommunications Technician ID - [id number], [id number] 02:24:00Unlisted Reason for Exam - Click Yes and Enter Reason Below->NoWill this procedure require oral co ntrast?->NoAUGUSTIN [facility] : 1945 Sex: MFINAL REPORT EXAM: CT of the abdomen and pelvis, with contrast CLINICAL HISTORY:Abdominal distention. TECHNIQUE: CT of the abdomen and pelvis was performed with intravenous contrast administration. This exam was performed according to our departmental dose optimization program which includes automated exposure control, adjustment of the mA and/or kV according to patient's size and /or use of iterative reconstructive technique. COMPARISON: None FINDINGS: LOWER CHEST: Mild bilateral lower lobe dependent atelectasis.HEPATOBILIARY: Layering sludge in the gallbladder. No focal liver lesions. No biliary duct dilatation.PANCREAS: Within normal limits.SPLEEN: Within normal limits.ADRENALS: Within normal limits.KIDNEYS/URETERS: 2.9 x 2.5 cm simple cyst in the left kidney. 1.1 cm proteinaceous or hemorrhagic cyst in the right renal lower pole. Subcentimeter bilateral renal hypodensities too small to characterize. Punctate nonobstructing left renal stone. No hydroureteronephrosis. URINARY BLADDER: Mild diffuse mural thickening, likely due to underdistention.REPRODUCTIVE ORGANS: Withinnormal limits. BOWEL/MESENTERY: Colonic diverticulosis without acute diverticulitis. [...] nonobstructing left renal stone. Signed: Aman Todd [facility] Verified Date/Time: 04/30/2021 02:24:34 HEMOGLOBIN [id number] 09:35:28 Test Item Value Reference Range Interpretation Comments HEMOGLOBIN A1C (BEAKER) (test code = 6.6 % 4.3-6.1 H 368) HEPATIC FUNCTION [id number] 05:59:52 Test Item Value Reference Range Interpretation [...] (test code = 38 U/L 6-55 347) Telecommunications Technician ID - MARZENA [id number] 05:59:50 Test Item Value Reference Range Interpretation Comments MAGNESIUM (BEAKER) (test code = 2.9 mg/dL 1.6-2.6 H 627) Telecommunications Technician ID - MARZENA MLIPID [id number] 05:59:50 Test Item Value Reference Range Interpretation Comments TRIGLYCERIDES (BEAKER) (test code = 60 mg/dL 540) CHOLESTEROL (BEAKER) (test code = 117 mg/dL 631) HDL CHOLESTEROL (BEAKER) (test code 56 mg/dL = 976) LDL CHOLESTEROL CALCULATED (BEAKER) 49 mg/dL (test code = 633) Triglyceride Reference Range: Low Risk <150 Borderline 150-199 High Risk 200- 499 Very High Risk >=500Cholesterol Reference Range: Low Risk <200 Borderline 200-239 High Risk >240HDL Cholesterol Reference Range: Low Risk >=60 High Risk <40LDL Cholesterol Reference Range: Optimal <100 Near Optimal 100-129 Borderline 130-159 High 160-189 Very High >=190 Telecommunications Technician ID - MARZENA MBASIC METABOLIC [id number] 05:59:49 Test Item Value Reference Range Interpretation [...] 697) EGFR (BEAKER) (test 86 mL/min/1.73 ESTIMA DANTE GFR IS code = 1092) sq m NOT ACCURATE CREATININE CLEARANCE IN PREDICTING GLOMERULAR FILTRATION RATE . ESTIMATED GFR I S NOT APPLICABLE FOR DIALYSIS PATIEN TS. Telecommunications Technician ID - MARZENA MB-TYPE NATRIURETIC FACTOR (BNP)2021-04-29 05:49:20 Test Item Value Reference Range Interpretation Comments B-TYPE NATRIURETIC PEPTIDE (BEAKER) 329 pg/mL 0-100 H (test code = 700) Telecommunications Technician ID - DBPROTHROMBIN TIME/[id number] 05:43:23 Test Item Value Reference Range Interpretation Comments PROTIME (BEAKER) 15.3 seconds 11.9-14.2 H (test code = 759) INR (BEAKER) (test 1.23 See_Comment [Automat ed message] code = 370) The system Mocapay generated this result transmitted ref erence range: <=5.90. The reference range was not used to int erpret this result as normal/abnormal . RECOMMENDED COUMADIN/WARFARIN INR THERAPY RANGESSTANDARD DOSE: 2.0 - 3.0 Includes: PROPHYLAXIS for venous thrombosis, systemic embolization; TREATMENT for venous thrombosis and/or pulmonary embolus.HIGH RISK: Target INR is 2.5-3.5 for patients with mechanical heart valves.CBC W/PLT COUNT & AUTO [id number] 05:29:39 Test Item Value Reference Range Interpretation [...] (BEAKER) (test code = 2801) BASIC METABOLIC [id number] 20:29:00 Test Item Value Reference Range Interpretation [...] 697) EGFR (BEAKER) (test 68 mL/min/1.73 ESTIMA DANTE GFR IS code = 1092) sq m NOT ACCURATE CREATININE CLEARANCE IN PREDICTING GLOMERULAR FILTRATION RATE . ESTIMATED GFR I S NOT APPLICABLE FOR DIALYSIS PATIEN TS. Telecommunications Technician ID - [id number] 16:56:00 Test Item Value Reference Range Interpretation Comments FERRITIN (BEAKER) (test code = 13.77 ng/mL 5.00-275.00 361) Telecommunications Technician ID - DBHIGH SENSITIVITY TROPONIN [id number] 16:42:00 Test Item Value Reference Range Interpretation Comments HIGH SENSITIVITY 13 pg/ml See_Comment [Automated message] TROPONIN I (test code = The system which [id number]) generated this result transmitted ref erence range: <=35. Th e reference range was not used to int erpret this result as normal/abnormal . Telecommunications Technician ID - DBThe REPRESENTATIVE GOVERNMENT RELATIONS STAT High Sensitivity Troponin-I results should be used in conjunctionwith other diagnostic information such as ECG, clinical observations and information, and patient symptoms to aid in the diagnosis of AL.HIGH SENSITIVITY TROPONIN [id number] 16:41:00 Test Item Value Reference Range Interpretation Comments HIGH SENSITIVITY 15 pg/ml See_Comment [Automated message] TROPONIN I (test code = The system which [id number]) generated this result transmitted ref erence range: <=35. Th e reference range was not used to int erpret this result as normal/abnormal . Telecommunications Technician ID - DBThe REPRESENTATIVE GOVERNMENT RELATIONS STAT High Sensitivity Troponin-I results should be used in conjunctionwith other diagnostic information such as ECG, clinical observations and information, and patient symptoms to aid in the diagnosis of AL.IRON, TIBC, % SAT. (WITHOUT FERRITIN)2021-04-28 16:35:00 Test Item Value Reference Range Interpretation Comments IRON (BEAKER) (test code = 547) 22.0 ug/dL 40.0-160.0 L TOTAL IRON BINDING CAPACITY 473 ug/dL 250-450 H (BEAKER) (test code = 769) IRON % SATURATION (2) (BEAKER) 5 % 20-55 L (test code = 2590) Telecommunications Technician ID - DBHEMOGLOBIN AND [id number] 15:56:00 Test Item Value Reference Range Interpretation Comments HEMOGLOBIN (BEAKER) (test code = 9.2 GM/DL 13.7-17.5 L 410) HEMATOCRIT (BEAKER) (test code = 30.6 % 40.1-51.0 L 411) Telecommunications Technician ID - [id number]
--- NOTE | 2022-05-14 12:58 | RAD REPORT ---
EXAM DESCRIPTION: CT - Head Brain Wo Cont - 05/14/2022 12:49 pm CLINICAL HISTORY: Blurred vision COMPARISON: February 2022 MRI TECHNIQUE: Computed axial tomography of the head was obtained. IV contrast was not requested. All CT scans are performed using dose optimization technique as appropriate and may include automated exposure control or mA/KV adjustment according to patient size. FINDINGS: An intracranial bleed is not seen . The ventricles are normal in caliber. No extra-axial fluid collection is noted. No significant hypodensity within the brain. Small parafalcine lipoma Fluid within the sinuses/ mastoids is not seen. IMPRESSION: No acute intracranial abnormality is seen. If patient's symptoms persist MRI of the bra in would be recommended.
[2022-05-14 13:25] LABS: Absolute Lymphocytes (CBC) 1.8 K/uL (0.7-4.9); Hematocrit 29.5 % (39.6-49.0); Lymphocytes % 28.8 % (15.3-44.8); MCV 71.7 fL (80-100); MPV 6.9 fL (7.6-11.3); RBC Red Blood Cell Count 4.12 M/uL (4.33-5.43)
[2022-05-14 13:33] LABS: Protime INR 2.27
[2022-05-14 13:43] LABS: Magnesium 2.4 mg/dL (1.8-2.4); Potassium 3.6 mmol/L (3.5-5.1); Troponin High Sensitivity 16.1 pg/mL (<58.9)
--- NOTE | 2022-05-14 14:49 | EDPHYS ---
Physician Documentation [facility] Name: Oleg Giles Age: 76 yrs Sex: Male : 1945 Arrival Date: 05/14/2022 Time: 11:57 Bed 24 Private MD: Willy Deshpande R ED Physician Bennie Lou HPI: 05/14 14:49 This 76 yrs old Male presents to ER via Ambulatory with complaints of Vision ms3 Problem. 14:49 76-year-old male with past medical history of atrial fibrillation, congestive heart ms3 failure, heart murmur, hyperlipidemia, hypertension presents for blurry/double vision that occurred yesterday afternoon. Patient states the episode lasted for approximately 30 minutes. Patient states it was hard to focus during that time. Patient states the symptoms have resolved at this time. Patient denies pain. Patient denies alleviating or inciting factors.. 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 - Social history:: Smoking status: Patient denies any tobacco usage or history of. ROS: 14:49 Constitutional: Negative for fever, and chills. Neck: Negative for injury, pain, and ms3 swelling, Cardiovascular: Negative for chest pain, and palpitations. Respiratory: Negative for shortness of breath, cough, wheezing, and pleuritic chest pain, Abdomen/GI: Negative for abdominal pain, nausea, vomiting, diarrhea, and constipation, Skin: Negative for injury, rash, and discoloration. 14:49 Eyes: Positive for Blurry vision yesterday. Exam: 14:49 Constitutional: This is a well developed, well nourished patient who is awake, alert, ms3 and in no acute distress. Head/Face: Normocephalic, atraumatic. Eyes: Pupils equal round and reactive to light, extra-ocular motions intact. Lids and lashes normal. Conjunctiva and sclera are non-icteric and not injected. Periorbital areas with no swelling, redness, or edema. Neck: Trachea midline, no cervical lymphadenopathy. Supple, full range of motion without nuchal rigidity, or vertebral point tenderness. No Meningismus. Chest/axilla: Normal chest wall appearance and motion. Nontender with no deformity. Cardiovascular: Regular rate and rhythm with a normal S1 and S2. No gallops, murmurs, or rubs. Normal PMI, no JVD. No pulse deficits. Respiratory: Lungs have equal breath sounds bilaterally, clear to auscultation and percussion. No rales, rhonchi or wheezes noted. No increased work of breathing, no retractions or nasal flaring. Abdomen/GI: Soft, non-tender, with normal bowel sounds. No distension or tympany. No guarding or rebound. No evidence of tenderness throughout. Skin: Warm, dry with normal turgor. Normal color with no rashes, no lesions, and no evidence of cellulitis. MS/ Extremity: Pulses equal, no cyanosis. Neurovascular intact. Full, normal range of motion. Psych: Awake, alert, with orientation to person, place and time. Behavior, mood, and affect are within normal limits. 14:53 ECG was reviewed by the Attending Physician. ms3 Vital Signs: 12:01 BP 164 / 97; Pulse 70; Resp 17; Temp 98.2; Pulse Ox 100% ; Weight 88 kg; Height 5 ft. 6 jl7 in. (167.64 cm); Pain 0/10; 12:27 BP 161 / 74; Pulse 60; Resp 18; Pulse Ox 100% on R/A; ld1 13:22 BP 155 / 62; Pulse 57; Resp 18; Pulse Ox 100% on R/A; ld1 14:33 BP 165 / 72; Pulse 57; Resp 18; Pulse Ox 100% on R/A; ld1 12:01 Body Mass Index 31.31 (88.00 kg, 167.64 cm) 7 MDM: 12:24 Patient medically screened. ms3 14:49 Data reviewed: vital signs, nurses notes, lab test result(s), EKG, radiologic studies, ms3 and as a result, I will discharge patient. Data interpreted: sanitation director: rate is 57 beats/min, rhythm is sinus bradycardia, with no ectopy, Interpretation: normal rhythm, bradycardia, Pulse oximetry: on room air is 100 %. Interpretation: normal. Counseling: I had a detailed discussion with the patient and/or guardian regarding: the historical points, exam findings, and any diagnostic results supporting the discharge/admit diagnosis, lab results, radiology results, the need for outpatient follow up, to return to the emergency department if symptoms worsen or persist or if there are any questions or concerns that arise at home. ED course: Discussed observation with patient and his daughter. Patient declines observation at this time. Patient to follow-up with his primary care physician in 1 to 2 days. Patient to follow-up with ophthalmology in 1 to 2 days as well. Patient understands and agrees with plan. All questions were answered. Return precautions discussed include worsening symptoms, or any other concerns. 05/14 12:27 Order name: Basic Metabolic Panel; Complete Time: 14:04 ms3 05/14 12:27 Order name: CBC with Diff; Complete Time: 14:04 ms3 05/14 12:27 Order name: Magnesium; Complete Time: 14:04 ms3 05/14 12:27 Order name: PT-INR; Complete Time: 14:04 ms3 05/14 12:27 Order name: Troponin HS; Complete Time: 14:04 ms3 05/14 12:27 Order name: EKG; Complete Time: 12:28 ms3 05/14 12:27 Order name: Cardiac monitoring; Complete Time: 12:36 ms3 05/14 12:27 Order name: EKG - Nurse/Tech; Complete Time: 12:36 ms3 05/14 12:27 Order name: IV Saline Lock; Complete Time: 13:20 ms3 05/14 12:27 Order name: Labs collected and sent; Complete Time: 13:20 ms3 05/14 12:27 Order name: O2 Per Protocol; Complete Time: 12:36 ms3 05/14 12:27 Order name: O2 Sat Monitoring; Complete Time: 12:36 ms3 05/14 12:32 Order name: Head Brain Wo Cont; Complete Time: 14:04 EDMS EC:53 Rate is 61 beats/min. Rhythm is regular. ME interval is normal. QRS interval is ms3 prolonged. No ST changes noted. Clinical impression: NSR w/ Non-specific ST/T Changes. Interpreted by me. Reviewed by me. Administered Medications: No medications were administered Disposition Summary: 05/14/22 14:49 Discharge Ordered Location: Home ms3 Condition: Stable ms3 Diagnosis - Unspecified disorder of binocular vision ms3 - Essential (primary) hypertension ms3 Followup: ms3 - With: Willy Deshpande MD - When: 1 - 2 days - Reason: Recheck today's complaints Discharge Instructions: - Discharge Summary Sheet ms3 - Blurred Vision, Adult ms3 Forms: - Medication Reconciliation Form ms3 - Thank You Letter ms3 - Antibiotic Education ms3 - Prescription Opioid Use ms3 Signatures: Dispatcher [employer] Jet Sosa RN RN jl7 Bennie Lou DO DO ms3
--- NOTE | 2022-05-14 14:49 | ER ---
Nurse's Notes [facility] Name: Oleg Giles Age: 76 yrs Sex: Male : 1945 Arrival Date: 05/14/2022 Time: 11:57 Bed 24 Private MD: Willy Deshpande R Diagnosis: Unspecified disorder of binocular vision;Essential (primary) hypertension Presentation: 05/14 12:01 Chief complaint: Patient's son or daughter states: Double vision yesterday at noon, jl7 feel weak all over and dizzy. Coronavirus screen: Vaccine status: Patient reports receiving the 2nd dose of the covid vaccine. Ebola Screen: No symptoms or risks identified at this time. Initial Sepsis Screen: Does the patient meet any 2 criteria? No. Patient's initial sepsis screen is negative. Does the patient have a suspected source of infection? No. Patient's initial sepsis screen is negative. Risk Assessment: Do you want to hurt yourself or someone else? Patient reports no desire to harm self or others. Onset of symptoms was May 13, 2022 at 12:00. 12:01 Method Of Arrival: Ambulatory jl7 12:01 Acuity: ALEXANDREA 2 jl7 Triage Assessment: 12:05 General: Appears in no apparent distress. uncomfortable, Behavior is calm, cooperative, jl7 appropriate for age. Pain: Denies pain. 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 - Social history:: Smoking status: Patient denies any tobacco usage or history of. Screenin:27 Abuse screen: Denies threats or abuse. Denies injuries from another. Nutritional ld1 screening: No deficits noted. Tuberculosis screening: No symptoms or risk factors identified. Fall Risk None identified. Assessment: 12:15 General: Appears in no apparent distress. uncomfortable, Behavior is calm, cooperative, ld1 appropriate for age. Pain: Denies pain. Neuro: Level of Consciousness is awake, alert, obeys commands, Oriented to person, place, time, situation, Reports blurred vision since yesterday at lunch. 12:15 Cardiovascular: Capillary refill < 3 seconds Patient's skin is warm and dry. Rhythm is ld1 sinus bradycardia. Respiratory: Respiratory: Airway is patent Respiratory effort is even, unlabored. GI: Abdomen is flat, non-distended. : No signs and/or symptoms were reported regarding the genitourinary system. EENT: No signs and/or symptoms were reported regarding the EENT system. Derm: No signs and/or symptoms reported regarding the dermatologic system. Musculoskeletal: No signs and/or symptoms reported regarding the musculoskeletal system. Vital Signs: 12:01 BP 164 / 97; Pulse 70; Resp 17; Temp 98.2; Pulse Ox 100% ; Weight 88 kg; Height 5 ft. 6 jl7 in. (167.64 cm); Pain 0/10; 12:27 BP 161 / 74; Pulse 60; Resp 18; Pulse Ox 100% on R/A; ld1 13:22 BP 155 / 62; Pulse 57; Resp 18; Pulse Ox 100% on R/A; ld1 14:33 BP 165 / 72; Pulse 57; Resp 18; Pulse Ox 100% on R/A; ld1 12:01 Body Mass Index 31.31 (88.00 kg, 167.64 cm) jl7 ED Course: 11:57 Patient arrived in ED. am2 11:57 Willy Deshpande MD is Private Physician. am2 12:05 Triage completed. jl7 12:05 Arm band placed on right wrist. jl7 12:14 Bennie Lou DO is Attending Physician. ms3 12:23 Angela Williamson, DI is Primary Nurse. ld1 12:27 Patient has correct armband on for positive identification. Placed in gown. Bed in low ld1 position. Call light in reach. Side rails up X2. awake overnight monitor on. Pulse ox on. NIBP on. Door closed. Noise minimized. Warm blanket given. 12:27 No provider procedures requiring assistance completed. ld1 12:52 Head Brain Wo Cont In Process Unspecified. EDMS 13:20 Inserted saline lock: 20 gauge in right antecubital area, using aseptic technique. ld1 Blood collected. 14:48 Willy Deshpande MD is Referral Physician. ms3 14:59 IV discontinued, intact, bleeding controlled, No redness/swelling at site. Pressure jl7 dressing applied. Administered Medications: No medications were administered Medication: 12:27 VIS not applicable for this client. ld1 Outcome: 14:49 Discharge ordered by . ms3 14:59 Discharged to home ambulatory. jl7 14:59 Condition: stable 14:59 Discharge instructions given to patient, family, Instructed on discharge instructions, follow up and referral plans. Demonstrated understanding of instructions, follow-up care. 15:00 Patient left the ED. jl7 Signatures: Dispatcher [employer] EDMS Jet Franz RN RN jl7 Ria Hernandez am2 Bennie Lou, DO ms3 Angela Williamson, RN RN ld1 Corrections: (The following items were deleted from the chart) 13:22 12:15 BP 155 / 62; Pulse 57bpm; Resp 18bpm; Pulse Ox 100% RA; ld1 ld1
--- NOTE | 2022-05-16 13:11 | EKG ---
Test Date: 2022-05-14 Test Time: 12:23:51 Publication Editor: DEWEY MEASUREMENT RESULTS: Intervals: Rate: 61 MN: 206 QRSD: 138 QT: 492 QTc: 495 [place]: P: 28 MN: 206 QRS: -12 T: 66 INTERPRETIVE STATEMENTS: Normal sinus rhythm Left ventricular hypertrophy with QRS widening Abnormal ECG Compared to ECG 03/10/2022 10:18:09 Left ventricular hypertrophy now present Sinus bradycardia no longer present Ventricular premature complex(es) no longer present Left bundle-branch block no longer present Electronically Signed On 05-16-22 13:06:49 CDT by Neeraj Andrea
[2022-05-16 22:02] VITALS: O2SAT 100
[2022-05-16 23:03] VITALS: BP 165/72
[2022-05-16 23:14] VITALS: TEMP 98.2
== END 2022-05-14 15:00 | disposition home or self-care (01) ==
LOC: ER 11:54
DX: H53.30 Unspecified disorder of binocular vision (principal); I10 Essential (primary) hypertension; I48.91 Unspecified atrial fibrillation; I50.9 Heart failure, unspecified; Z95.2 Presence of prosthetic heart valve; Z79.01 Long term (current) use of anticoagulants; Z79.82 Long term (current) use of aspirin
CPT/HCPCS: 36415; 70450; 80048; 83735; 84484; 85025; 85610; 93005; 99284

== ENCOUNTER 2022-06-10 14:32 | Emergency (ER) | payer OTHER ==
--- OUTSIDE RECORDS SUMMARY | 2022-06-10 14:48 | XMS REPORT | Continuity of Care Document ---
:1945 Author Organization [facility] t Address [address] [place] [address] Care Team Providers Name Role Phone Melida SHEFFIELD, Willy Quinn Primary Care Physician [phone] ALBA BELTRAN NATASHA Attending Clinician Unavailable [id number] Attending Clinician Unavailable RYLAN JARAMILLO Attending Clinician Unavailable Jackelyn Hernandez Attending Clinician Unavailable Elle SEVILLA, Melisa Attending Clinician KARON CHRISTIAN Attending Clinician Unavailable Mack JUAREZ, Gabino Whitaker Attending Clinician GABINO PARK Attending Clinician Unavailable Amilcar SHEFFIELD, Alexa Jim Attending Clinician [phone] Jonnie SHEFFIELD, Michael Hendrickson Attending Clinician Floyd SHEFFIELD, Edith Gamboa Attending Clinician Jing SHEFFIELD, Jerrell Dave Attending Clinician Alberto SHEFFIELD, Raz Rodriguez Attending Clinician Bartolo Saldivar MD Attending Clinician Juan Carlos SHEFFIELD, Gabino Attending Clinician GABINO ARNOLD Attending Clinician Unavailable Darrel Hidalgo MD Attending Clinician Ramya SHEFFIELD, Colby Fox Attending Clinician [phone] ELLIS CAMARILLO Attending Clinician Unavailable Maria Teresa SHEFFIELD, Meliza Singh Attending Clinician [phone] Yessica SHEFFIELD, Timmy Miranda Attending Clinician Larry oHlbrook CRNA Attending Clinician Doris SHEFFIELD, [place] Nicholas Attending Clinician Haseeb SHEFFIELD, Darlene Attending Clinician Yonas SHEFFIELD, Bernarda Estevez Attending Clinician DARLENE SPARKS Attending Clinician Unavailable RICK SANCHEZ Attending Clinician Unavailable Chery SHEFFIELD, Oneil Lesly Attending Clinician James SHEFFIELD, Noa Alexander Attending Clinician [phone] NOA RAMIREZ Attending Clinician Unavailable Nichelle SHEFFIELD, Jacobo Love Attending Clinician [phone] Bar Toledo MD Attending Clinician Raegan Rico MD Attending Clinician Dillon Tenorio MD Attending Clinician Joyce Boss CRNA Attending Clinician [phone] Robinson SHEFFIELD, Jimmy Ramirez Attending Clinician [phone] Katy Nath MD Attending Clinician Jaden Chan CRNA Attending Clinician Doctor Unassigned, [place] Attending Clinician Unavailable ALBA BELTRAN NATASHA Admitting Clinician Unavailable [id number] Admitting Clinician Unavailable RYLAN JARAMILLO Admitting Clinician Unavailable EDITH HAMILTON Admitting Clinician Unavailable BERNARDA BIRD Admitting Clinician Unavailable NOA RAMIREZ Admitting Clinician Unavailable BAR TOL[place]O Admitting Clinician Unavailable SARAH SCHAFFER Admitting Clinician Unavailable Katy Nath MD Admitting Clinician Payers Payer Name Policy Type Policy Number Effective Date Expiration Date Garcia FLORES [id number] [facility] [id number] O - HUMANA [id number] 2021 2021 HEALTHCARE 00:00:00 00:00:00 TOTALCARE SNP [id number] 2020 MEDICARE HMO-CIGNA 00:00:00 CIGNA [facility] [id number] 2020 HMO 00:00:00 Problems Condition Condition Condition Status Onset Resolution Last Treating Co mments Source Name Details Category Date Date Treatment Clinician Date Severe Severe Disease Active [facility] regurgitat [facility]:00: Me dical ion ion 00 [place] 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 1-18 [facility] athy athy 00:00: Medical 00 [place] Paroxysmal Paroxysmal Disease Active [facility] atrial atrial 1-18 [facility] fibrillati fibrillati 00:00: Me dical on on 00 [place] Dehydratio Dehydratio Disease Active [facility] n n 1-13 [facility] 00:[facility]: Medical [place] Nausea and Nausea and Disease Active [facility] vomiting vomiting 1-13 [facility] 00:[facility]: Medical 00 [place] Esophageal Esophageal Disease Active 2020-[address] dysphagia dysphagia 1-15 [facility] 00:00: Medical [place] Weakness Weakness Disease [facility] [place] GI bleed GI bleed Disease [facility] 00 [place] s/p s/p Disease Active [facility] Robotic Robotic 9-10 [facility] MVR/LAAL/M MVR/LAAL/M 00:00: Me dical AZE by Dr. TOM by Dr. Marko Bui (09/07/21) (09/07/21) Cardiogeni Cardiogeni Disease Active [facility] shock c shock [facility] Hypovolemi Hypovolemi Disease Active [facility] shock c shock [facility] Acute Acute Disease Active [facility] pulmonary pulmonary [facility] edema edema [facility] Hypervolem Hypervolem Disease Active [facility] ia, ia, [facility] unspecifie unspecifie Me dical d d Center hypervolem hypervolem ia type ia type No known No known Disease Unive rs active active ity of problems problems [facility] Allergies, Adverse Reactions, Alerts Allergy Allergy Status Severity Reaction(s) Onset Inactive Treating Comm ents Source Name Type Date Date Clinician Aspirin Propensi Active 2020-08 [facility] ty to 08-22 College adverse 00:00: of reaction 00 Medicin s to e drug APIXABAN Allergy Active 2020-[address] [facility] ASPIRIN Allergy Active [facility] NO KNOWN Allergy Active [facility] Family History Family Member Diagnosis Comments Start Date Stop Date Source Natural father [facility] Natural father Heart disease [facility] Natural sister Diabetes [facility] Social History Social Habit Start Date Stop [...] years [facility] 00[facility]00 ago [facility] Sex Assigned At [address] [facility] 00:[facility] Smoking Status Start Date Stop Date Source Never smoked tobacco [facility] Former smoker 2021-05-03 00:00:00 2021-05-03 00:00:00 [facility] Medications Ordered Filled Start Stop Current Ordering Indication Dosage Frequency Signature Comments Components Source Medication Medication Date Date Medication? Clinician (SIG) Name Name digoxin 2021- No 125ug Take 125 [facility] (LANOXIN) 2-12 10-24 mcg by [facility] 125 MCG 10:03: 00:00 mouth of tablet 52 :00 daily. Medicin e furosemide 2021- No 40mg Take 40 mg [facility] (LASIX) 40 10-12- by mouth Mario ege MG tablet 10:03: 00:00 daily. of 52 :00 Medicin e losartan 2021- No 25mg Take 25 mg [facility] (COZAAR) 25 10-12-24 by mouth Col lege MG tablet 10:03: 00:00 daily. of 52 :00 Medicin e warfarin 2021- No 5mg Take 5 mg [place] [facility] (COUMADIN) 10-12- by mouth Mario ege 5 MG tablet 10:03: 00:00 daily. of 52 :00 Medicin e atorvastati 2021- No 20mg Take 20 mg [facility] n (LIPITOR) 10-12-24 by mouth. Co llege 20 MG 10:03: 00:00 of tablet 52 :00 Medicin e amiodarone 2021- No 200mg Take 200 [facility] (PACERONE) 10-12-24 mg by [facility] 200 MG 10:03: 00:00 mouth of tablet 52 :00 daily. Medicin e metoprolol 2021- No 12.5mg Take 12.5 [facility] (LOPRESSOR) 2-24 02-24 mg by Colleg e 25 MG 09:59: 00:00 mouth two of tablet 39 :00 times Medicin daily. e lorazepam Yes 1mg Take 1 mg [place] [facility] (ATIVAN) 1 2-24 by mouth Colle ge MG tablet 09:55: nightly as of 38 needed for Medicin Anxiety. e Pantoprazol Yes Take by [place] e Sodium 40 2-24 mouth. Colleg e MG PACK 08:55: of 28 Medicin e senna-docus Yes 1{tbl} Take 1 [facility] ate 2-24 Tablet by [facility] (PERICOLACE 08:55: mouth of ) 8.6-50 MG 28 daily. Medici n per tablet e Tamsulosin Yes Take by [facility] HCl 0.4 MG 2-24 mouth. [facility] CAPS 08:55: of 28 Medicin e thiamine 0 Yes 100mg Take 100 [facility] 100 MG 2-24 mg by [facility] tablet 08:55: mouth of 28 daily. Medicin e gabapentin Yes 100mg Take 100 [facility] (NEURONTIN) 2-24 mg by [facility] 100 MG 08:54: mouth 3 of capsule 00 times Medicin daily. e Magnesium Yes Take by [place] [facility] Oxide 400 2-24 mouth. [facility] (241.3 Mg) 08:54: of MG TABS 00 Medicin e Aspirin 81 0 Yes 81mg Take 81 mg [facility] MG tablet 2-24 by mouth Colleg e 08:54: once. of 00 Medicin e ferrous Yes 325mg Take 325 [facility] sulfate 325 2-24 mg by [facility] (65 Fe) MG 08:35: mouth 3 of tablet 07 times Medicin daily. e trazodone Yes 50mg Take 50 mg [facility] (DESYREL) 2-24 by mouth Colleg e 50 MG 08:35: nightly. of tablet 07 Medicin e amiodarone 0 Yes [id number] 200mg Take 1 [facility] (PACERONE) 2-24 09 Tablet by Mario ege 200 MG 00:00: mouth of tablet 00 daily. Medicin e atorvastati Yes [id number] 20mg Take 1 [facility] n (LIPITOR) 2-24 Tablet by Col lege 20 MG 00:00: mouth of tablet 00 daily. Medicin e digoxin 0 Yes [id number] 125ug Take 1 [facility] (LANOXIN) 2-24 09 Tablet by Leonie ge 125 MCG 00:00: mouth of tablet 00 daily. Medicin e furosemide 2021-0 Yes [id number] 40mg Take 1 [facility] (LASIX) 40 2-24 09 Tablet by Mario ege MG tablet 00:00: mouth of 00 daily. Medicin e losartan 2021-0 Yes [id number] 25mg Take 1 [facility] (COZAAR) 25 2-24 09 Tablet by Col lege MG tablet 00:00: mouth of 00 daily. Medicin e warfarin Yes [id number] 5mg Take 1 [facility] (COUMADIN) 10-12 Tablet by Mario ege 5 MG tablet 00:00: mouth of 00 daily. Medicin e metoprolol Yes [id number] Take 1/2 [facility] (TOPROL XL) 10-12 tablet Colleg e 25 MG XL 00:00: once a day of tablet 00 (12.5 mg) Medicin e thiamine 2021- No 100mg QD Take 1 [facility] 09-20 tablet [facility] tablet 00:00: 23:59 (100 mg Medical 00 :00 total) by Center mouth daily for 30 days. pantoprazol 2021- No 40mg QD Take [address] [facility] e 09-20- tablet (40 [facility] (PROTONIX) 00:00: 23:59 mg total) M edical 40 MG 00 :00 by mouth Center tablet daily for 30 days. magnesium 2021- No 400mg QD Take [address] [facility] oxide 09-20- tablet [facility] (MAG-OX) 00:00: 23:59 (400 mg Medic al 400 mg 00 :00 total) by Center (241.3 mg mouth magnesium) daily for tablet 30 days. losartan 2021- No 25mg QD Take [address] [facility] (COZAAR) 25 09-20- tablet (25 L ukes MG tablet 00:00: 23:59 mg total) Me dical 00 :00 by mouth Center daily for 30 days. digoxin 2021- No 62.5ug QD Take 0.[address] [facility] (LANOXIN) 09-20-04 tablets [facility] 0.125 MG 00:00: 23:59 (62.5 mcg Med ical tablet 00 :00 total) by Center mouth daily for 30 days. aspirin 81 2021- No 81mg QD Take [address] [facility] MG EC 09-20-04 tablet (81 [facility] tablet 00:00: 23:59 mg total) Medic al 00 :00 by mouth Center daily for 30 days. amiodarone 2021- No 200mg QD Take [address] [facility] (PACERONE) 09-20 tablet [facility] 200 MG 00:00: 23:59 (200 mg Medical tablet 00 :00 total) by Center mouth daily for 30 days. thiamine 2021- No 100mg QD Take 1 [...] magnesium) daily for tablet 30 days. losartan 2021- No 25mg QD Take [address] [facility] (COZAAR) 25 09-20 tablet (25 L ukes MG tablet 00:00: 23:59 mg total) Me dical 00 :00 by mouth Center daily for 30 days. digoxin 2021- No 62.5ug QD Take 0.[address] [facility] (LANOXIN) 09-20 tablets [facility]ukes 0.125 MG 00:00: 23:59 (62.5 mcg Med ical tablet 00 :00 total) by Center mouth daily for 30 days. aspirin 81 2021- No 81mg QD Take [address] [facility] MG EC 09-20 tablet (81 [facility] tablet 00:00: 23:59 mg [...] 15:53: 00:00 daily. Medical tablet 08 :00 [place] albuterol 2021- No 2.5mg Take 2.[address] (PROVENTIL) 09-19 02-01 mg by [facility] 2.5 mg/0.5 15:53: 00:00 nebulizati Medical mL Nebu 08 :00 on every 6 Center nebulizer (six) solution hours as needed for Wheezing. docusate 2021-0 2- No 100mg QD Take [address] [facility] sodium 2- 02-01 mg by [facility]ukes (COLACE) 15:53: 00:00 mouth Medical 100 MG 08 :00 daily. Center capsule apixaban 2021-2021- No 5mg Q.5D Take [address] [facility] (Eliquis) 5 09-19 by mouth 2 L ukes mg Tab 15:53: 00:00 (two) Medical tablet 08 :00 times Center daily. atorvastati 2021-2021- No 20mg QD Take [address] [facility] n (LIPITOR) 09-19 by mouth [place] es 20 MG 15:53: 00:00 daily. Medical tablet 08 :00 [place] albuterol 2021- No 2.5mg Take 2.[address] (PROVENTIL) 09-19 02- mg by [facility] 2.5 mg/0.5 15:53: 00:00 nebulizati Medical mL Nebu 08 :00 on every 6 Center nebulizer (six) solution hours as needed for Wheezing. docusate 2021-2021- No 100mg QD Take [address] [facility] sodium 09-19- mg by [facility] (COLACE) 15:53: 00:00 mouth Medical 100 MG 08 :00 daily. [place] capsule apixaban 2021-0 2021- No 5mg Q.5D Take [address] [facility] (Eliquis) 5 09-19- by mouth 2 L ukes mg Tab 15:53: 00:00 (two) Medical tablet 08 :00 times Center daily. furosemide 2021-2021- No 40mg Take [address] [facility] (LASIX) 40 09-19 03-03 tablet (40 [facility] MG tablet 00:00: 23:59 mg total) Me dical 00 :00 by mouth 2 Center (two) times daily for 30 days. atorvastati 2021- No 20mg QD Take [address] [facility] n (LIPITOR) 09-19 tablet (20 L ukes 20 MG 00:00: 23:59 mg total) Medica l tablet 00 :00 by mouth Center daily for 30 days. warfarin 2021-2021- No 5mg QD Take [address] [facility] (COUMADIN, 09-19 tablet (5 [place] es JANTOVEN) 5 00:00: 23:59 mg total) Medical MG tablet 00 :00 by mouth Center every evening for 30 days. tamsulosin 2021-2021- No .4mg QD Take [address] [facility] [...] 12.5mg Q.5D Take 0.[address] [facility] tartrate 09-19 tablets [facility] (LOPRESSOR) 00:00: 23:59 (12.5 mg M edical 25 MG 00 :00 total) by Center tablet mouth 2 (two) times daily for 30 days. guaiFENesin 2021-2021- No 600mg Q.5D Take [address] (mucINEX) 09-19 tablet [facility] 600 mg 12 00:00: 23:59 (600 mg Medi allison hr tablet 00 :00 total) by Cente r mouth 2 (two) times daily for 30 days. gabapentin 2021-0 2021- No 100mg QD Take 1 CHI [...] by mouth Center daily for 30 days. warfarin 2021- No 5mg QD Take 1 [...] 12.5mg Q.5D Take 0.[address] tartrate 09-19 tablets [facility] (LOPRESSOR) 00:00: 23:59 (12.5 mg M edical 25 MG 00 :00 total) by Center tablet mouth 2 (two) times daily for 30 days. guaiFENesin 600mg Q.5D Take [address] (mucINEX) 09-19 tablet [facility] 600 mg 12 00:00: 23:59 (600 mg Medi allison hr tablet 00 :00 total) by Cente r mouth 2 (two) times daily for 30 days. gabapentin 100mg QD Take [address] [facility] (NEURONTIN) 09-19 capsule Luke s 100 MG 00:00: 23:59 (100 mg Medical capsule 00 :00 total) by Center mouth nightly for 30 days. HYDROcodone 1{tbl} Take [address] -acetaminop 09-19 tablet by [facility] (NORCO 00:00: 23:59 mouth Medic al 5-325) 00 :00 every 6 Center 5-325 mg (six) per tablet hours as needed for Pain for up to 7 days. Max Daily Amount: 4 tablets HYDROcodone 1{tbl} Take [address] -acetaminop 09-19 tablet by [facility] (NORCO 00:00: 23:59 mouth Medic al 5-325) 00 :00 every 6 Center 5-325 mg (six) per tablet hours as needed for Pain for up to 7 days. Max Daily Amount: 4 tablets metoprolol 2020-08 75mg Take 75 mg [facility] (LOPRESSOR) 1-30 [...] tablet 07 Medicin e verapamil 2020-08 Yes [id number] 120mg Take 1 [facility] (VERELAN) 1-30 capsule by Mario [facility] 120 MG CR 00:00: mouth of capsule 00 daily. May Medici n take e additional 1 tablet daily as needed. ondansetron 2020-08 Yes [id number] 4mg Take 1 [facility] (ZOFRAN-ODT 1-30 Tablet by Col lege ) 4 mg 00:00: mouth of disintegrat 00 every 8 Medic in ing tablet hours as e needed for Nausea. ondansetron 2020-08 Yes [id number] 4mg Take 1 [facility] (ZOFRAN-ODT 1-30 Tablet by Col lege ) 4 mg 00:00: mouth of disintegrat 00 every 8 Medic in ing tablet hours as e needed for Nausea. verapamil 2020-08- No [id number] 120mg Take 1 [facility] (VERELAN) 1-30 02-24 capsule by Col lege 120 MG CR 00:00: 00:00 mouth of capsule 00 :00 daily. December Medici n take e additional 1 tablet daily as needed. atorvastati 2020-08 Yes 20mg Take 20 mg [facility] n (LIPITOR) 1-04 by mouth. [...] 00:00: of capsule 00 Medicin e benzonatate 2020-08 No [facility] (TESSALON) 0-25 11-30 College 100 mg 00:00: 00:00 of capsule 00 :00 Medicin e docusate 2020-08 Yes [facility] sodium 0-17 College (COLACE) 00:00: of 100 MG 00 Medicin capsule e metoprolol 2020-08 Yes [facility] (LOPRESSOR) 0-17 College 25 MG 00:00: of tablet 00 Medicin e docusate 2020-08 Yes [facility] sodium 0-17 [facility] (COLACE) 00:00: of 100 MG 00 Medicin capsule e docusate 2020-08 Yes [facility] sodium 0-17 [facility] (COLACE) 00:00: of 100 MG 00 Medicin capsule e metoprolol 2020-08 No [facility] (LOPRESSOR) 0-17 11-30 College 25 MG 00:00: 00:00 of tablet 00 :00 Medicin e promethazin 2020-08 Yes [facility] e 0-11 [facility] (PHENERGAN) 00:00: of 12.5 MG 00 Medicin tablet e promethazin 2020-08 Yes [facility] e 0-11 [facility] (PHENERGAN) 00:00: of 12.5 MG 00 Medicin tablet e promethazin 2020-08 Yes [facility] e 0-11 [facility] (PHENERGAN) 00:00: of 12.5 MG 00 Medicin [...] 4mg Take [address] [facility] (ZOFRAN-ODT 0-02 10-02 tablet (4 [facility] ) 4 [...] mg [facility] MG TABS 008-18 by mouth College 00:00: 05:59 two times of 00 :00 daily. Medicin e apixaban 2020-08- No 5mg Q.5D Take [address] [facility] (ELIQUIS) 5 0-01 12-30 tablet (5 [facility] mg Tab 00:00: 23:59 mg total) Medic al tablet 00 :00 by mouth 2 Center (two) times daily for 90 days. apixaban 2020-08- No 5mg Q.5D Take [address] [facility] (ELIQUIS) 5 0-01 12-30 tablet (5 [facility] mg Tab 00:00: 23:59 mg total) Medic al tablet 00 :00 by mouth 2 Center (two) times daily for 90 days. polyethylen 2020- No 17g Q.5D Take [address] [facility] e glycol 05-17 10- by mouth 2 Luke [facility] (GLYCOLAX) 00:00: [...] furosemide 2020- No 40mg Take 40 mg [facility] (LASIX) 40 05-11- by mouth. Col lege MG tablet 00:00: 05:59 of 00 :00 Medicin e aspirin 81 2020-2020- No 81mg QD Take [address] [facility] MG EC 05-11- tablet (81 [facility] tablet 00:00: 23:59 mg total) Medic al 00 :00 by mouth Center daily for 90 days. furosemide 2020- No 40mg QD Take [address] [facility] (LASIX) 40 -10 08-22 tablet (40 [facility] MG tablet 00:00: 23:59 mg total) Me dical 00 :00 by mouth Center daily for 90 days. aspirin 81 2020-2020- No 81mg QD Take [address] [facility] MG EC 05-11-22 tablet (81 [facility] tablet 00:00: 23:59 mg total) Medic al 00 :00 by mouth Center daily for 90 days. furosemide 2020- No 40mg QD Take [address] [facility] (LASIX) 40 05-11 tablet (40 [facility] MG tablet 00:00: 23:59 mg total) Me dical 00 :00 by mouth Center daily for 90 days. Aspirin 81 2020- No 81mg Take 81 mg [facility] MG tablet 05-1130 by mouth. [...] tablet (two) times daily for 90 days. amiodarone [...] by mouth ity of tablet 14:02: at [place] 00 bedtime. Medical Branch clopidogrel Yes 75mg [...] at [place] 00 bedtime. [facility] Branch clopidogrel Yes 75mg [...] at [place] 00 bedtime. [facility] Branch clopidogrel Yes 75mg Take 75 mg [facility] 75 mg 9-04 by mouth ity of tablet 14:02: daily. Medical Branch valsartan 2019-0 Yes 320mg Take 320 Uni vers 320 mg 04-22 mg by ity of tablet 14:02: mouth [place] 00 daily. Medical Branch ondansetron 2018-0 Yes 4mg 4 mg, Slow [facility] (ZOFRAN [...] Until Branch Discontinu ed, Routine, Intra-op propofol 2018-0 2019- No ONCE INTRA Un amrit injection [...] Date Status Commen ts Source Name Name [facility] SARS-CoV-2 2021-07-18 Completed [facility] Vaccination 00:00:00 of Medicine Pfizer SARS-CoV-2 2021-07-18 Completed [facility] Vaccination 00:00:00 of Medicine Pneumococcal 2021-07-[address] [facility] Conjugate (Prevnar) 00:00:00 [facility] 13-Valent Pneumococcal 2021-07-[address] [facility] Conjugate (Prevnar) 00:00:00 [facility] Influenza Four-QIV 2021-07-[address] [facility] PF 6+MO IM ([id number]) 00:00:00 [facility] Influenza Four-QIV 2021-07-[address] [facility] PF 6+MO IM ([id number]) 00:00:00 [facility] Pneumococcal 2021-05-[address] [facility] Conjugate (Prevnar) 00:00:00 [facility] 13-Valent Pneumococcal 2021-05-[address] [facility] Conjugate (Prevnar) 00:00:00 [facility] 13-Valent Vital Signs Vital Name Observation Time Observation Value Comments Source WEIGHT 2021-05-06 08:52:00 88.2 kg WEIGHT 2021-05-03 09:54:00 92.08 kg HEIGHT 2021-04-28 15:00:00 165.1 cm Systolic blood 2021-10-12 14:35:00 116 mm[Hg] [facility] pressure Medicine Diastolic blood 2021-10-12 14:35:00 76 mm[Hg] [facility] pressure Medicine Heart rate 2021-10-12 14:35:00 121 /min [facility] Respiratory rate 2021-10-12 14:35:00 16 /min [facility] Body height 2021-10-12 14:35:00 167.6 cm [facility] Body weight 2021-10-12 14:35:00 83.008 kg [facility] BMI 2021-10-12 14:35:00 29.54 kg/m2 [facility] Oxygen saturation in 2021-10-12 14:35:00 99 /min [facility] Arterial blood by [facility] Pulse oximetry HEIGHT 2021-10-04 08:58:00 167.6 cm [...] kg Systolic blood 2021-07-18 20:56:00 118 mm[Hg] [facility] pressure Medicine Diastolic blood 2021-07-18 20:56:00 70 mm[Hg] [facility] pressure Medicine Heart rate 2021-07-18 20:56:00 102 /min [facility] Respiratory rate 2021-07-18 20:56:00 16 /min [facility] Body height 2021-07-18 20:56:00 167.6 cm [facility] Body weight 2021-07-18 20:56:00 83.008 kg [facility] BMI 2021-07-18 20:56:00 29.54 kg/m2 [facility] Oxygen saturation in 2021-07-18 20:56:00 100 /min [facility] blood by Medicine Pulse oximetry HEIGHT 2021-07-03 [...] kg Systolic blood 2021-06-22 13:19:00 140 mm[Hg] [facility] pressure Medicine Diastolic blood 2021-06-22 13:19:00 82 mm[Hg] [facility] pressure Medicine Heart rate 2021-06-22 13:19:00 86 /min [facility] Body temperature 2021-06-22 13:19:[address] [facility] Body height 2021-06-22 13:19:00 167.6 cm [facility] Body weight 2021-06-22 13:19:00 84.732 kg [facility] BMI 2021-06-22 13:19:00 30.15 kg/m2 [facility] WEIGHT 2021-05-23 22:20:00 83.643 kg HEIGHT [...] 13:42:00 140 mm[Hg] Univer sity of pressure [facility] Diastolic blood 2019-04-22 13:42:00 73 mm[Hg] Unive rsity of pressure [facility] Heart rate 2019-04-22 13:42:00 56 /min [facility] [place] [facility] Respiratory rate 2019-04-22 13:42:00 16 /min [facility] [place] [facility] Oxygen saturation in 2019-04-22 13:42:00 99 /min [facility] of Arterial blood by [facility] Pulse oximetry Branch Body temperature 2019-04-22 13:27:00 36.33 Lalita [facility] ersity of [facility] Body height 2019-04-17 16:00:00 162.6 cm [facility] [place] [facility] Body weight 2019-04-17 16:00:00 91.173 kg [facility] [place] [facility] BMI 2019-04-17 16:00:00 34.50 kg/m2 Universi [facility] of [facility] Systolic blood 2019-04-22 13:42:00 140 mm[Hg] Univer sity of pressure [facility] Diastolic blood 2019-04-22 13:42:00 73 mm[Hg] Unive rsity of [facility] Heart rate 2019-04-22 13:42:00 56 /min [facility] [place] [facility] Respiratory rate 2019-04-22 13:42:00 16 /min [facility] ersity of [facility] Oxygen saturation in 2019-04-22 13:42:00 99 /min [facility] Arterial blood by [facility] Pulse oximetry Branch Body temperature 2019-04-22 13:27:00 36.33 Lalita [facility] ersity of [facility] Body height 2019-04-17 16:00:00 162.6 cm [facility] [place] [facility] Body weight 2019-04-17 16:00:00 91.173 kg [facility] [place] [facility] BMI 2019-04-17 16:00:00 34.50 kg/m2 [facility] of [facility] Systolic blood 2021-10-04 08:58:00 125 mm[Hg] [facility] Diastolic blood 2021-10-04 08:58:00 74 mm[Hg] [facility] Heart rate 2021-10-04 08:58:00 119 /min [facility] Respiratory rate 2021-10-04 08:58:00 16 /min [facility] Body height 2021-10-04 08:58:00 167.6 cm [facility] Body weight 2021-10-04 08:58:00 74.39 kg [facility] BMI 2021-10-04 08:58:00 26.47 kg/m2 [facility] Oxygen saturation in 2021-10-04 08:58:00 100 /min [facility] Arterial blood by Medical Ce nter Pulse oximetry Body temperature 2021-09-19 16:03:00 36.56 Lalita [facility] Procedures Procedure Date / Time Performing Source Performed Clinician ELECTROCARDIOGRAM COMPLETE 2021-10-12 Jennifer Kathleen [facility] 15:06:00 Medicine PHOSPHORUS 2021-09-19 Serenio, Henry [facility] 03:23:00 [facility] CALCIUM, IONIZED 2021-09-19 Serenio, Henry [facility] 03:23:00 [facility] [facility] CBC W/PLT COUNT & AUTO 2021-09-19 Serenio, Henry [facility] DIFFERENTIAL 03:23:00 [facility] PROTHROMBIN TIME/INR 2021-09-19 Serenio, Henry [facility] 03:23:00 [facility] MAGNESIUM 2021-09-[address] [facility] 03:23:00 [facility] BASIC METABOLIC PANEL (7) 2021-09-[address] [facility] 03:23:00 [facility] CBC W/PLT COUNT & AUTO 2021-09-19 Serenio, Henry [facility] DIFFERENTIAL 03:23:00 [facility] XR CHEST 1 VIEW PORTABLE / BEDSIDE 2021-09-18 Blaine Perez [facility] 04:55:00 [facility] MAGNESIUM 2021-09-18 Serenio, Henry [facility] 03:25:00 [facility] PHOSPHORUS 2021-09-18 Serenio, Henry [facility] 03:25:00 [facility] CALCIUM, IONIZED 2021-09-18 Serenio, Henry [facility] 03:25:00 [facility] CBC W/PLT COUNT & AUTO 2021-09-18 Serenio, Henry [facility] DIFFERENTIAL 03:25:00 [facility] PROTHROMBIN TIME/INR 2021-09-18 Serenio, Henry [facility] 03:25:00 [facility] BASIC METABOLIC PANEL (7) 2021-09-18 Juan Carlos Gabino [facility] 03:25:00 [facility] COMPREHENSIVE METABOLIC PANEL 2021-09-18 Phong Norwood [facility] 03:25:00 [facility] CBC W/PLT COUNT & AUTO 2021-09-18 Serenio, Henry [facility] DIFFERENTIAL 03:25:00 [facility] POCT-GLUCOSE METER 2021-09-17 Juan Carlos Gabino [facility] 17:26:00 [facility] POCT-GLUCOSE METER 2021-09-17 Juan Carlos Gabino [facility] 12:28:00 [facility] POCT-GLUCOSE METER 2021-09-17 JuanC ar[address] Gabino [facility] 07:58:00 [facility] PHOSPHORUS 2021-09-17 Serenio, Henry [facility] 07:50:00 [facility] MAGNESIUM 2021-09-17 Serenio, Henry [facility] 07:50:00 [facility] CALCIUM, IONIZED 2021-09-17 Serenio, Henry [facility] 05:41:00 [facility] CBC W/PLT COUNT & AUTO 2021-09-17 Serfrankio, Henry [facility] 05:41:00 [facility] PROTHROMBIN TIME/INR 2021-09-17 Serenio, Henry [facility] 05:41:00 [facility] CBC W/PLT COUNT & AUTO 2021-09-17 Serenio, Henry [facility] 05:41:00 [facility] XR CHEST 1 VIEW PORTABLE / BEDSIDE 2021-09-[address] [facility] 04:47:00 [facility] POCT-GLUCOSE METER 2021-09-16 Juan Carlos Gabino [facility] 21:47:00 [facility] MAGNESIUM 2021-09-[address] [facility] 17:37:00 [facility] POCT-GLUCOSE METER 2021-09-16 Juan Carlos Gabino [facility] 17:17:00 [facility] POCT-GLUCOSE METER 2021-09-16 Juan Carlos Gabino [facility] 12:41:00 [facility] POCT-GLUCOSE METER 2021-09-[address] [facility] 07:47:00 [facility] XR CHEST 1 VIEW PORTABLE / BEDSIDE 2021-09-[address] [facility] 05:13:00 [facility] PROTHROMBIN TIME/INR 2021-09-[address] [facility] 04:03:00 [facility] APTT 2021-09-16 Juan Carlos Gabino [facility] 04:03:00 [facility] BASIC METABOLIC PANEL (7) 2021-09-[address] [facility] 04:03:00 [facility] CBC W/PLT COUNT & AUTO 2021-09-16 Serenio, Henry [facility] DIFFER[facility] 04:03:00 [facility] MAGNESIUM 2021-09-[address] [facility] 04:03:00 [facility] PHOSPHORUS 2021-09-[address] [facility] 04:03:00 [facility] CALCIUM, IONIZED 2021-09-16 Serenio, Henry [facility] 04:03:00 [facility] CBC W/PLT COUNT & AUTO 2021-09-16 Serenio, Henry [facility] 04:03:00 [facility] POCT-GLUCOSE METER 2021-09-15 Juan Carlos Gabino [facility] 20:46:00 [facility] POCT-GLUCOSE METER 2021-09-15 Juan Carlos Gabino [facility] 17:08:00 [facility] POCT-GLUCOSE METER 2021-09-15 Juan Carlos Gabino [facility] 12:04:00 [facility] POCT-GLUCOSE METER 2021-09-15 Juan Carlos Gabino [facility] 07:15:00 [facility] XR CHEST 1 VIEW PORTABLE / BEDSIDE 2021-09-15 Serenio [address]alp h [facility] 04:42:00 [facility] CBC W/PLT COUNT & AUTO 2021-09-15 Serenio, Henry [facility] 03:54:00 [facility] HEPATIC FUNCTION PANEL 2021-09-15 Serenio, Henry [facility] 03:54:00 [facility] PHOSPHORUS 2021-09-15 Serenio, Henry [facility] 03:54:00 [facility] CALCIUM, IONIZED 2021-09-15 Serenio, Henry [facility] 03:54:00 [facility] CBC W/PLT COUNT & AUTO 2021-09-15 Serenio, Henry [facility] 03:54:00 [facility] MAGNESIUM 2021-09-15 Serenio, Henry [facility] 03:54:00 [facility] PROTHROMBIN TIME/INR 2021-09-15 Serenio, Henry [facility] 03:54:00 [facility] BASIC METABOLIC PANEL (7) 2021-09-[address] [facility] 03:54:00 [facility] APTT 2021-09-[address] [facility] 03:54:00 [facility] ECG 12-LEAD 2021-09-[address] [facility] 01:56:37 [facility] ECG 12-LEAD 2021-09-15 Unknown, Hl7 [facility] 01:56:37 [facility] ECG 12-LEAD 2021-09-15 Unknown, Hl7 [facility] 01:56:37 [facility] ECG 12-LEAD 2021-09-[address] [facility] 01:56:09 [facility] ECG 12-LEAD 2021-09-15 Unknown, Hl7 [facility] 01:56:09 [facility] ECG 12-LEAD 2021-09-15 Unknown, Hl7 [facility] 01:56:09 [facility] ECG 12-LEAD 2021-09-[address] [facility] 01:55:34 [facility] ECG 12-LEAD 2021-09-15 Unknown, Hl7 [facility] 01:55:34 [facility] ECG 12-LEAD 2021-09-15 Unknown, Hl7 [facility] 01:55:34 [facility] PREPARE LEUKO-REDUCED RBC 2021-09-[address] [facility] 23:55:00 [facility] POCT-GLUCOSE METER 2021-09-14 Yariel, Umar [facility] 21:03:00 [facility] MAGNESIUM 2021-09-14 Serenio, Henry [facility] 20:55:00 [facility] BASIC METABOLIC PANEL (7) 2021-09-[address] [facility] 09:06:00 [facility] POCT-GLUCOSE METER 2021-09-[address] [facility] 07:23:00 [facility] CBC W/PLT COUNT & AUTO 2021-09-14 Serenio, Henry [facility] 04:56:00 [facility] HEPATIC FUNCTION PANEL 2021-09-14 Serenio, Henry [facility] 04:56:00 [facility] PHOSPHORUS 2021-09-14 Serenio, Henry [facility] 04:56:00 [facility] CALCIUM, IONIZED 2021-09-14 Serenio, Henry [facility] 04:56:00 [facility] CBC W/PLT COUNT & AUTO 2021-09-14 Serenio, Henry [facility] 04:56:00 [facility] BASIC METABOLIC PANEL (7) 2021-09-14 Serenio, Henry [facility] 04:56:00 [facility] MAGNESIUM 2021-09-14 Serenio, Henry [facility] 04:56:00 [facility] APTT 2021-09-14 Serenio, Henry [facility] 04:56:00 [facility] PROTHROMBIN TIME/INR 2021-09-14 Serenio, Henry [facility] 04:56:00 [facility] XR CHEST 1 VIEW PORTABLE / BEDSIDE 2021-09-14 Serenio, Ralp h [facility] 00:53:00 [facility] POCT-GLUCOSE METER 2021-09-[address] [facility] 22:05:00 [facility] BASIC METABOLIC PANEL (7) 2021-09-13 Serenio, Henry [facility] 17:17:00 [facility] MAGNESIUM 2021-09-13 Serenio, Henry [facility] 17:17:00 [facility] POCT-GLUCOSE METER 2021-09-13 Alberto, Raz [facility] 17:16:00 [facility] ECG 12-LEAD 2021-09-13 Unknown, Hl7 [facility] 14:33:16 [facility] ECG 12-LEAD 2021-09-13 Unknown, Hl7 [facility] 14:33:16 [facility] ECG 12-LEAD 2021-09-13 Unknown, Hl7 [facility] 13:30:46 [facility] ECG 12-LEAD 2021-09-13 Unknown, Hl7 [facility] 13:30:46 [facility] ECG 12-LEAD 2021-09-13 Unknown, Hl7 [facility] 13:29:58 [facility] ECG 12-LEAD 2021-09-13 Unknown, Hl7 [facility] 13:29:58 [facility] ECG 12-LEAD 2021-09-[address] [facility] 13:29:37 [facility] ECG 12-LEAD 2021-09-13 Unknown, Hl7 [facility] 13:29:37 [facility] ECG 12-LEAD 2021-09-13 Unknown, Hl7 [facility] 13:29:37 [facility] ECG 12-LEAD 2021-09-13 Unknown, Hl7 [facility] 13:29:07 [facility] ECG 12-LEAD 2021-09-13 Unknown, Hl7 [facility] 13:29:07 [facility] ECG 12-LEAD 2021-09-13 Unknown, Hl7 [facility] 13:24:42 [facility] ECG 12-LEAD 2021-09-13 Unknown, Hl7 [facility] 13:24:42 [facility] ECG 12-LEAD 2021-09-[address] [facility] 12:51:16 [facility] ECG 12-LEAD 2021-09-13 Unknown, Hl7 [facility] 12:51:16 [facility] ECG 12-LEAD 2021-09-13 Unknown, Hl7 [facility] 12:51:16 [facility] ECG 12-LEAD 2021-09-13 Unknown, Hl7 [facility] 12:50:38 [facility] ECG 12-LEAD 2021-09-13 Unknown, Hl7 [facility] 12:50:38 [facility] ECG 12-LEAD 2021-09-13 Unknown, Hl7 [facility] 12:46:16 [facility] ECG 12-LEAD 2021-09-13 Unknown, Hl7 [facility] 12:46:16 [facility] POCT-GLUCOSE METER 2021-09-13 Alberto, Raz [facility] 11:06:00 [facility] 2D ECHO W/ DOPPLER (CW/PW/COLOR) 2021-09-13 Nieves, Herve [facility] 10:29:22 [facility] TRANSFUSE LEUKO-REDUCED RED BLOOD 2021-09-13 Nieves, Herve [facility] CELLS 10:15:00 [facility] BASIC METABOLIC PANEL (7) 2021-09-[address] [facility] 10:15:00 [facility] MAGNESIUM 2021-09-[address] [facility] 10:15:00 [facility] TYPE AND SCREEN, AUTOMATED 2021-09-13 Nieves Herve [facility] 08:41:00 [facility] POCT-GLUCOSE METER 2021-09-[address] [facility] 07:48:00 [facility] XR CHEST 1 VIEW PORTABLE / BEDSIDE 2021-09-[address] [facility] 02:03:00 [facility] CBC W/PLT COUNT & AUTO 2021-09-13 Serenio, Henry [facility] 01:50:00 [facility] HEPATIC FUNCTION PANEL 2021-09-13 Serenio, Henry [facility] 01:50:00 [facility] PHOSPHORUS 2021-09-13 Serenio, Henry [facility] 01:50:00 [facility] CALCIUM, IONIZED 2021-09-13 Serenio, Henry [facility] 01:50:00 [facility] CBC W/PLT COUNT & AUTO 2021-09-13 Serenio, Henry [facility] 01:50:00 [facility] BASIC METABOLIC PANEL (7) 2021-09-13 Serenio, Henry [facility] 01:50:00 [facility] MAGNESIUM 2021-09-13 Serenio, Henry [facility] 01:50:00 [facility] APTT 2021-09-13 Serenio, Henry [facility] 01:50:00 [facility] BLOOD GAS, VENOUS 2021-09-13 Dax, Moy [facility] 01:50:00 [facility] PROTHROMBIN TIME/INR 2021-09-13 Dax, Moy [facility] 01:50:00 [facility] HC VENOUS DOPPLER EXT UNI 2021-09-12 Serkaylah, Henry [facility] 22:09:00 [facility] POCT-GLUCOSE METER 2021-09-[facility] 21:56:00 [facility] POCT-GLUCOSE METER 2021-09-12 Sagar-Joshua, Raz [facility] 16:06:00 [facility] MAGNESIUM 2021-09-[address] [facility] 11:57:00 [facility] POTASSIUM 2021-09-12 Zully Lagunaan A [facility] 11:57:00 [facility] PHOSPHORUS 2021-09-12 Luz Elena Kameron A [facility] 11:57:00 [facility] CALCIUM, IONIZED 2021-09-12 Luz Elena Kameron A [facility] 11:57:00 [facility] POCT-GLUCOSE METER 2021-09-12 SagarJoshua, Raz [facility] 11:18:00 [facility] POCT-GLUCOSE METER 2021-09-12 Alberto, Raz [facility] 07:50:00 [facility] ECG 12-LEAD 2021-09-12 Unknown, Hl7 [facility] 07:21:58 [facility] ECG 12-LEAD 2021-09-12 Unknown, Hl7 [facility] 07:21:58 [facility] BLOOD GAS, ARTERIAL 2021-09-12 Serkaylah, Henry [facility] 03:21:00 [facility] CBC W/PLT COUNT & AUTO 2021-09-[address] [facility] 03:20:00 [facility] BASIC METABOLIC PANEL (7) 2021-09-[address] [facility] 03:20:00 [facility] HEPATIC FUNCTION PANEL 2021-09-12 Serkaylah, Henry [facility] 03:20:00 [facility] MAGNESIUM 2021-09-12 Serkaylah, Henry [facility] 03:20:00 [facility] PHOSPHORUS 2021-09-12 Serenio, Henry [facility] 03:20:00 [facility] CALCIUM, IONIZED 2021-09-12 Serfrankio, Henry [facility] 03:20:00 [facility] CBC W/PLT COUNT & AUTO 2021-09-12 Serkaylah, Henry [facility] 03:20:00 [facility] PT/APTT 2021-09-[address] [facility] 03:20:00 [facility] LACTIC ACID, ARTERIAL 2021-09-[address] [facility] 03:20:00 [facility] XR CHEST 1 VIEW PORTABLE / BEDSIDE 2021-09-12 Marce Vegas h [facility] 01:10:00 [facility] HC VENOUS DOPPLER EXT UNI 2021-09-[address] [facility] 23:31:00 [facility] BASIC METABOLIC PANEL (7) 2021-09-[address] [facility] 20:26:00 [facility] MAGNESIUM 2021-09-[address] [facility] 20:26:00 [facility] HEMOGLOBIN AND HEMATOCRIT 2021-09-[address] [facility] 20:26:00 [facility] POCT-GLUCOSE METER 2021-09-11 Keith-Lewis, Raz [facility] 20:25:00 [facility] POCT-GLUCOSE METER 2021-09-11 Keith-Lewis, Raz [facility] 16:07:00 [facility] BASIC METABOLIC PANEL (7) 2021-09-[address] [facility] 12:13:00 [facility] MAGNESIUM 2021-09-[address] [facility] 12:13:00 [facility] OXYGEN SATURATION, MEASURED 2021-09-[address] [facility] 12:13:00 [facility] PHOSPHORUS 2021-09-[address] [facility] 12:13:00 [facility] CALCIUM, IONIZED 2021-09-[address] [facility] 12:13:00 [facility] POCT-GLUCOSE METER 2021-09-11 Jing, Jerrell [facility] 11:00:00 [facility] POCT-GLUCOSE METER 2021-09-11 Jing, Jerrell [facility] 08:18:00 [facility] OXYGEN SATURATION, MEASURED 2021-09-11 Jing, Jerrell [facility] 06:13:00 [facility] CBC W/PLT COUNT & AUTO 2021-09-11 Serenio, Henry [facility] 03:45:00 [facility] BASIC METABOLIC PANEL (7) 2021-09-11 Serenio, Henry [facility] 03:45:00 [facility] HEPATIC FUNCTION PANEL 2021-09-11 Serenio, Henry [facility] 03:45:00 [facility] MAGNESIUM 2021-09-11 Serenio, Henry [facility] 03:45:00 [facility] PHOSPHORUS 2021-09-11 Serenio, Henry [facility] 03:45:00 [facility] OXYGEN SATURATION, MEASURED 2021-09-11 Serenio, Henry [facility] 03:45:00 [facility] CALCIUM, IONIZED 2021-09-11 Serenio, Henry [facility] 03:45:00 [facility] CBC W/PLT COUNT & AUTO 2021-09-11 Serenio, Henry [facility] 03:45:00 [facility] PT/APTT 2021-09-11 Serenio, Henry [facility] 03:45:00 [facility] LACTIC ACID, ARTERIAL 2021-09-11 Serenio, Henry [facility] 03:45:00 [facility] BLOOD GAS, ARTERIAL 2021-09-11 Serenio, Henry [facility] 03:44:00 [facility] XR CHEST 1 VIEW PORTABLE / BEDSIDE 2021-09-11 Serenio, Ralp h [facility] 00:33:00 [facility] BASIC METABOLIC PANEL (7) 2021-09-10 Serenio, Henry [facility] 22:08:00 [facility] MAGNESIUM 2021-09-10 Serenio, Henry [facility] 22:08:00 [facility] HEMOGLOBIN AND HEMATOCRIT 2021-09-10 Serenio, Henry [facility] 22:08:00 [facility] POCT-GLUCOSE METER 2021-09-10 Jing, Jerrell [facility] 22:06:00 [facility] POCT-GLUCOSE METER 2021-09-10 Jing, Jerrell [facility] 16:49:00 [facility] OXYGEN SATURATION, MEASURED 2021-09-[address] [facility] 15:32:00 [facility] 2D ECHO W/ DOPPLER (CW/PW/COLOR) 2021-09-[address] [facility] 14:37:25 [facility] BASIC METABOLIC PANEL (7) 2021-09-10 Serenio, Henry [facility] 12:58:00 [facility] MAGNESIUM 2021-09-10 Serenio, Henry [facility] 12:58:00 [facility] CALCIUM, IONIZED 2021-09-[address] [facility] 12:58:00 [facility] POCT-GLUCOSE METER 2021-09-10 Jing, Jerrell [facility] 11:14:00 [facility] ECG 12-LEAD 2021-09-[address] [facility] 10:42:11 [facility] ECG 12-LEAD 2021-09-10 Unknown, Hl7 [facility] 10:42:11 [facility] ECG 12-LEAD 2021-09-10 Unknown, Hl7 [facility] 10:42:11 [facility] ECG 12-LEAD 2021-09-10 Unknown, Hl7 [facility] 10:41:54 [facility] ECG 12-LEAD 2021-09-10 Unknown, Hl7 [facility] 10:41:54 [facility] POCT-GLUCOSE METER 2021-09-10 Jing, Jerrell [facility] 07:42:00 [facility] BLOOD GAS, ARTERIAL 2021-09-10 Serenio, Henry [facility] 04:31:00 [facility] CBC W/PLT COUNT & AUTO 2021-09-10 Serenio, Henry [facility] 04:28:00 [facility] BASIC METABOLIC PANEL (7) 2021-09-10 Serenio, Henry [facility] 04:28:00 [facility] HEPATIC FUNCTION PANEL 2021-09-10 Serenio, Henry [facility] 04:28:00 [facility] MAGNESIUM 2021-09-10 Serenio, Henry [facility] 04:28:00 [facility] PHOSPHORUS 2021-09-10 Serenio, Henry [facility] 04:28:00 [facility] CALCIUM, IONIZED 2021-09-10 Serenio, Henry [facility] 04:28:00 [facility] CBC W/PLT COUNT & AUTO 2021-09-10 Serenio, Henry [facility] 04:28:00 [facility] PT/APTT 2021-09-10 Serenio, Henry [facility] 04:28:00 [facility] LACTIC ACID, ARTERIAL 2021-09-10 Serenio, Henry [facility] 04:28:00 [facility] OXYGEN SATURATION, MEASURED 2021-09-10 Serenio, Henry [facility] 04:27:00 [facility] XR CHEST 1 VIEW PORTABLE / BEDSIDE 2021-09-[address] [facility] 01:45:00 [facility] PREPARE LEUKO-REDUCED RBC 2021-09-[address] [facility] 23:54:00 [facility] POCT-GLUCOSE METER 2021-09-[address] [facility] 22:06:00 [facility] BASIC METABOLIC PANEL (7) 2021-09-09 Serenio, Henry [facility] 19:37:00 [facility] LACTIC ACID, ARTERIAL 2021-09-09 Serenio, Henry [facility] 19:37:00 [facility] MAGNESIUM 2021-09-09 Serenio, Henry [facility] 19:37:00 [facility] PHOSPHORUS 2021-09-09 Serenio, Henry [facility] 19:37:00 [facility] OXYGEN SATURATION, MEASURED 2021-09-09 Serenio, Henry [facility] 19:37:00 [facility] HEMOGLOBIN AND HEMATOCRIT 2021-09-09 Serenio, Henry [facility] 19:37:00 [facility] CALCIUM, IONIZED 2021-09-09 Serenio, Henry [facility] 19:37:00 [facility] OXYGEN SATURATION, MEASURED 2021-09-[address] [facility] 09:44:00 [facility] OXYGEN SATURATION, MEASURED 2021-09-[address] [facility] 05:07:00 [facility] ECG 12-LEAD 2021-09-09 Unknown, Hl7 [facility] 04:50:00 [facility] ECG 12-LEAD 2021-09-09 Unknown, Hl7 [facility] 04:50:00 [facility] ECG 12-LEAD 2021-09-[address] [facility] 04:48:23 [facility] ECG 12-LEAD 2021-09-09 Unknown, Hl7 [facility] 04:48:23 [facility] ECG 12-LEAD 2021-09-09 Unknown, Hl7 [facility] 04:48:23 [facility] ECG 12-LEAD 2021-09-09 Unknown, Hl7 [facility] 04:47:37 [facility] ECG 12-LEAD 2021-09-09 Unknown, Hl7 [facility] 04:47:37 [facility] POCT-GLUCOSE METER 2021-09-09 Jing, Jerrell [facility] 02:53:00 [facility] COMPREHENSIVE METABOLIC PANEL 2021-09-09 [address] [facility] 02:46:00 [facility] MAGNESIUM 2021-09-[address] [facility] 02:46:00 [facility] PHOSPHORUS 2021-09-[address] [facility] 02:46:00 [facility] CBC (HEMOGRAM ONLY) 2021-09-[address] [facility] 02:46:00 [facility] BLOOD GAS, ARTERIAL 2021-09-09 [place] Usemarnelson [facility] 02:46:00 [facility] CALCIUM, IONIZED 2021-09-09 [place], Uselyn [facility] 02:46:00 [facility] XR CHEST 1 VIEW PORTABLE / BEDSIDE 2021-09-09 Chris Blaine [address]ne [facility] 00:53:00 [facility] PREPARE LEUKO-REDUCED RBC 2021-09-[address] [facility] 23:55:00 [facility] POCT-GLUCOSE METER 2021-09-08 Jing, Jerrell [facility] 21:03:00 [facility] POCT-GLUCOSE METER 2021-09-08 Jing, Jerrell [facility] 18:03:00 [facility] CBC W/PLT COUNT & AUTO 2021-09-[address] [facility] 15:03:00 [facility] CALCIUM, IONIZED 2021-09-08 Luz Elena, Kameron A [facility] 15:03:00 [facility] POTASSIUM 2021-09-08 Luz Elena, Kameron A [facility] 15:03:00 [facility] MAGNESIUM 2021-09-[address] [facility] 15:03:00 [facility] CBC W/PLT COUNT & AUTO 2021-09-[address] [facility] DIFFER[facility] 15:03:00 [facility] POCT-GLUCOSE METER 2021-09-08 Jing, Jerrell [facility] 12:04:00 [facility] TRANSFUSE LEUKO-REDUCED RED BLOOD 2021-09-[address] [facility] CELL[facility] 11:50:00 [facility] POCT-GLUCOSE METER 2021-09-08 Jing, Jerrell [facility] 10:20:00 [facility] HEMOGLOBIN AND HEMATOCRIT 2021-09-[address] [facility] 10:18:00 [facility] 2D ECHO W/ DOPPLER (CW/PW/COLOR) 2021-09-08 Evonne Ryder a [facility] 09:30:34 [facility] OXYGEN SATURATION, MEASURED 2021-09-08 Sebastiánonye, Gene [facility] 09:05:00 [facility] POCT-GLUCOSE METER 2021-09-08 Jing, Jerrell [facility] 09:00:00 [facility] LACTIC ACID, ARTERIAL 2021-09-08 [place], Uselyn [facility] 08:58:00 [facility] BLOOD GAS, ARTERIAL 2021-09-08 Sebastiánonye, Gene [facility] 08:58:00 [facility] POCT-GLUCOSE METER 2021-09-08 Jing, Jerrell [facility] 08:09:00 [facility] POCT-GLUCOSE METER 2021-09-08 Jing, Jerrell [facility] 06:03:00 [facility] LACTIC ACID, ARTERIAL 2021-09-[address] [facility] 05:53:00 [facility] RRL CRITICAL LABS 2021-09-[address] [facility] (ABG,NA,K,H&H,GLUCOSE) 05:53:00 [facility] enter BLOOD GAS, ARTERIAL 2021-09-[address] [facility] 05:53:00 [facility] SODIUM NA-STAT LAB 2021-09-08 [place], Uselyn [facility] 05:53:00 [facility] POTASSIUM-STAT LAB 2021-09-08 [place], Uselyn [facility] 05:53:00 [facility] GLUCOSE-STAT LAB 2021-09-[address] [facility] 05:53:00 [facility] HGB/HCT (H&H) - STAT LAB 2021-09-08 [place], Uselyn [facility] 05:53:00 [facility] POCT-GLUCOSE METER 2021-09-08 Jing, Jerrell [facility] 05:03:00 [facility] POCT-GLUCOSE METER 2021-09-08 Jing, Jerrell [facility] 04:15:00 [facility] OXYGEN SATURATION, MEASURED 2021-09-08 [place], Uselyn [facility] 04:03:00 [facility] BLOOD GAS, ARTERIAL 2021-09-08 [place], Uselyn [facility] 04:02:00 [facility] RRL CRITICAL LABS 2021-09-08 [place], Uselyn [facility] (ABG,NA,K,H&H,GLUCOSE) 04:02:00 [facility] enter SODIUM NA-STAT LAB 2021-09-08 [place], Uselyn [facility] 04:02:00 [facility] POTASSIUM-STAT LAB 2021-09-08 [place], Uselyn [facility] 04:02:00 [facility] GLUCOSE-STAT LAB 2021-09-08 [place], Uselyn [facility] 04:02:00 [facility] HGB/HCT (H&H) - STAT LAB 2021-09-08 [place], Uselyn [facility] 04:02:00 [facility] POCT-GLUCOSE METER 2021-09-[address] [facility] 02:59:00 [facility] CBC W/PLT COUNT & AUTO 2021-09-08 Farjo, Bashar [facility] DIFFERENTIAL 02:31:00 [facility] CBC W/PLT COUNT & AUTO 2021-09-08 [facility] 02:31:00 [facility] COMPREHENSIVE METABOLIC PANEL 2021-09-08 Kameron Laguna [facility] 02:31:00 [facility] MAGNESIUM 2021-09-[address] [facility] 02:31:00 [facility] PHOSPHORUS 2021-09-[address] [facility] 02:31:00 [facility] CALCIUM, IONIZED 2021-09-08 [place], Uselyn [facility] 02:31:00 [facility] LACTIC ACID, ARTERIAL 2021-09-08 [place], [facility] 02:30:00 [facility] RRL CRITICAL LABS 2021-09-08 [place], Uselyn [facility] (ABG,NA,K,H&H,GLUCOSE) 02:30:00 [facility] enter BLOOD GAS, ARTERIAL 2021-09-08 [place], Uselyn [facility] 02:30:00 [facility] SODIUM NA-STAT LAB 2021-09-08 [place], Uselyn [facility] 02:30:00 [facility] POTASSIUM-STAT LAB 2021-09-08 [place], Uselyn [facility] 02:30:00 [facility] GLUCOSE-STAT LAB 2021-09-08 [place], Uselyn [facility] 02:30:00 [facility] HGB/HCT (H&H) - STAT LAB 2021-09-08 [place], Uselyn [facility] 02:30:00 [facility] POCT-GLUCOSE METER 2021-09-08 Jing, Jerrell [facility] 02:11:00 [facility] POCT-GLUCOSE METER 2021-09-08 Jing, Jerrell [facility] 01:00:00 [facility] OXYGEN SATURATION, MEASURED 2021-09-08 [place], Uselyn [facility] 00:55:00 [facility] XR CHEST 1 VIEW PORTABLE / BEDSIDE 2021-09-08 Blaine Perez haarcelia [facility] 00:43:00 [facility] POCT-GLUCOSE METER 2021-09-07 Jing, Jerrell [facility] 23:59:00 [facility] RRL CRITICAL LABS 2021-09-07 [place], Uselyn [facility] (ABG,NA,K,H&H,GLUCOSE) 23:54:00 [facility] enter BLOOD GAS, ARTERIAL 2021-09-07 [place], Uselyn [facility] 23:54:00 [facility] SODIUM NA-STAT LAB 2021-09-07 [place], Uselyn [facility] 23:54:00 [facility] POTASSIUM-STAT LAB 2021-09-07 [place], Uselyn [facility] 23:54:00 [facility] GLUCOSE-STAT LAB 2021-09-07 [place], Uselyn [facility] 23:54:00 [facility] HGB/HCT (H&H) - STAT LAB 2021-09-07 [place], Uselyn [facility] 23:54:00 [facility] POCT-GLUCOSE METER 2021-09-07 Jing, Jerrell [facility] 23:04:00 [facility] POCT-GLUCOSE METER 2021-09-07 Jing, Jerrell [facility] 22:03:00 [facility] APTT 2021-09-[address] [facility] 21:58:00 [facility] LACTIC ACID, ARTERIAL 2021-09-07 [place], Uselyn [facility] 21:58:00 [facility] RRL CRITICAL LABS 2021-09-07 [place], Uselyn [facility] (ABG,NA,K,H&H,GLUCOSE) 21:57:00 [facility] enter BLOOD GAS, ARTERIAL 2021-09-07 [place], Uselyn [facility] 21:57:00 [facility] SODIUM NA-STAT LAB 2021-09-07 [place], Uselyn [facility] 21:57:00 [facility] POTASSIUM-STAT LAB 2021-09-07 [place], Uselyn [facility] 21:57:00 [facility] GLUCOSE-STAT LAB 2021-09-07 [place], Uselyn [facility] 21:57:00 [facility] HGB/HCT (H&H) - STAT LAB 2021-09-07 [place], Uselyn [facility] 21:57:00 [facility] POCT-GLUCOSE METER 2021-09-07 Jing, Jerrell [facility] 20:34:00 [facility] BASIC METABOLIC PANEL (7) 2021-09-07 [place], Uselyn [facility] 20:27:00 [facility] RRL CRITICAL LABS 2021-09-07 [place], Uselyn [facility] (ABG,NA,K,H&H,GLUCOSE) 20:27:00 [facility] enter BLOOD GAS, ARTERIAL 2021-09-07 [place], Uselyn [facility] 20:27:00 [facility] SODIUM NA-STAT LAB 2021-09-07 [place], Uselyn [facility] 20:27:00 [facility] POTASSIUM-STAT LAB 2021-09-07 [place], Uselyn [facility] 20:27:00 [facility] GLUCOSE-STAT LAB 2021-09-07 [place], Uselyn [facility] 20:27:00 [facility] HGB/HCT (H&H) - STAT LAB 2021-09-[address] [facility] 20:27:00 [facility] OXYGEN SATURATION, MEASURED 2021-09-[address] [facility] 19:02:00 [facility] BLOOD GAS, ARTERIAL 2021-09-[address] [facility] 18:48:00 [facility] LACTIC ACID, ARTERIAL 2021-09-[address] [facility] 18[facility]48:00 [facility] CBC (HEMOGRAM ONLY) 2021-09-[address] [facility] 18:48:00 [facility] ECG 12-LEAD 2021-09-07 Kodakandyou, [facility] 18:45:09 [facility] ECG 12-LEAD 2021-09-07 Unknown, Hl7 [facility] 18:45:09 [facility] ECG 12-LEAD 2021-09-07 Unknown, Hl7 [facility] 18:45:09 [facility] POCT-GLUCOSE METER 2021-09-[address] [facility] 18:17:00 [facility] LACTIC ACID, ARTERIAL 2021-09-[address] [facility] 17:07:00 [facility] RRL CRITICAL LABS 2021-09-[address] [facility] (ABG,NA,K,H&H,GLUCOSE) 17:07:00 [facility] enter BLOOD GAS, ARTERIAL 2021-09-[address] [facility] 17:07:00 [facility] SODIUM NA-STAT LAB 2021-09-[address] [facility] 17:07:00 [facility] POTASSIUM-STAT LAB 2021-09-[address] [facility] 17:07:00 [facility] GLUCOSE-STAT LAB 2021-09-[address] [facility] 17:07:00 [facility] HGB/HCT (H&H) - STAT LAB 2021-09-[address] [facility] 17:07:00 [facility] TRANSFUSE LEUKO-REDUCED RED BLOOD 2021-09-[address] [facility] CELLS 16:52:00 [facility] XR CHEST 1 VIEW PORTABLE / BEDSIDE 2021-09-[address] [facility] 15:16:00 [facility] CBC W/PLT COUNT & AUTO 2021-09-[address] [facility] DIFFERENTIAL 15:15:00 [facility] BASIC METABOLIC PANEL (7) 2021-09-[address] [facility] 15:15:00 [facility] MAGNESIUM 2021-09-[address] [facility] 15:15:00 [facility] BLOOD GAS, ARTERIAL 2021-09-[address] [facility] 15:15:00 [facility] CBC W/PLT COUNT & AUTO 2021-09-07 [place], [facility] DIFFERENTIAL 15:15:00 [facility] PROTHROMBIN TIME/INR 2021-09-[address] [facility] 15:15:00 [facility] PT/APTT 2021-09-07 [place], [facility] 15:15:00 [facility] FIBRINOGEN 2021-09-07 [place], [facility] 15:15:00 [facility] LACTIC ACID, ARTERIAL 2021-09-07 Kodcorinandyou, [facility] 15:15:00 [facility] PHOSPHORUS 2021-09-07 Kod[place]andyou, [facility] 15:15:00 [facility] OXYGEN SATURATION, MEASURED 2021-09-[address] [facility] 15:15:00 [facility] PREPARE RBC 2021-09-[address] [facility] 14:47:00 [facility] PREPARE PLASMA 2021-09-[address] [facility] 14:47:00 [facility] ANESTHESIA PERIPHERAL BLOCK 2021-09-[address] [facility] 14:40:56 [facility] RRL CRITICAL LABS 2021-09-07 Darrel Hidalgo [facility] (ABG,NA,K,H&H,GLUCOSE) 13:26:59 [facility] enter CALCIUM, IONIZED 2021-09-[address] [facility] 13:26:59 [facility] BLOOD GAS, ARTERIAL 2021-09-[address] [facility] 13:26:59 [facility] SODIUM NA-STAT LAB 2021-09-[address] [facility] 13:26:59 [facility] POTASSIUM-STAT LAB 2021-09-07 Darrel Hidalgo [facility] 13:26:59 [facility] GLUCOSE-STAT LAB 2021-09-07 Darrel Hidalgo [facility] 13:26:59 [facility] HGB/HCT (H&H) - STAT LAB 2021-09-07 Darrel Hidalgo [facility] 13:26:59 [facility] POCT-ACT 2021-09-07 Jerrell Ch [facility] 13:03:00 [facility] PLATELET COUNT 2021-09-07 HidalgoDarrel zuñiga [facility] 12:59:25 [facility] CBC W/PLT COUNT & AUTO 2021-09-07 Larry Perez [facility] DIFFERENTIAL 12:59:00 [facility] CBC W/PLT COUNT & AUTO 2021-09-07 Larry Perez [facility] DIFFERENTIAL 12:59:00 [facility] RRL CRITICAL LABS 2021-09-07 Rocky Darrel [facility] (ABG,NA,K,H&H,GLUCOSE) 12:42:36 [facility] enter CALCIUM, IONIZED 2021-09-07 Rocky Darrel [facility] 12:42:36 [facility] PROTHROMBIN TIME/INR 2021-09-07 Rocky Darrel [facility] 12:42:36 [facility] APTT 2021-09-07 Rocky Darrel [facility] 12:42:36 [facility] FIBRINOGEN 2021-09-07 Rocky Darrel [facility] 12:42:36 [facility] BLOOD GAS, ARTERIAL 2021-09-07 Rocky Darrel [facility] 12:42:36 [facility] SODIUM NA-STAT LAB 2021-09-07 Rocky Darrel [facility] 12:42:36 [facility] POTASSIUM-STAT LAB 2021-09-07 Rocky Darrel [facility] 12:42:36 [facility] GLUCOSE-STAT LAB 2021-09-[address] [facility] 12:42:36 [facility] HGB/HCT (H&H) - STAT LAB 2021-09-[address] [facility] 12:42:36 [facility] POCT-ACT 2021-09-[address] [facility] 12:15:00 [facility] RRL CRITICAL LABS 2021-09-[address] [facility] (ABG,NA,K,H&H,GLUCOSE) 12:13:19 [facility] enter BLOOD GAS, ARTERIAL 2021-09-[address] [facility] 12:13:19 [facility] SODIUM NA-STAT LAB 2021-09-[address] [facility] 12:13:19 [facility] POTASSIUM-STAT LAB 2021-09-[address] [facility] 12:13:19 [facility] GLUCOSE-STAT LAB 2021-09-[address] [facility] 12:13:19 [facility] HGB/HCT (H&H) - STAT LAB 2021-09-[address] [facility] 12:13:19 [facility] TISSUE EXAM 2021-09-[address] [facility] 12:07:00 [facility] POCT-ACT 2021-09-[address] [facility] 11:41:00 [facility] LACTIC ACID, ARTERIAL 2021-09-[address] [facility] 11:39:09 [facility] RRL CRITICAL LABS 2021-09-[address] [facility] (ABG,NA,K,H&H,GLUCOSE) 11:39:04 [facility] enter BLOOD GAS, ARTERIAL 2021-09-[address] [facility] 11:39:04 [facility] SODIUM NA-STAT LAB 2021-09-[address] [facility] 11:39:04 [facility] POTASSIUM-STAT LAB 2021-09-[address] [facility] 11:39:04 [facility] GLUCOSE-STAT LAB 2021-09-[address] [facility] 11:39:04 [facility] HGB/HCT (H&H) - STAT LAB 2021-09-[address] [facility] 11:39:04 [facility] MISCELLANEOUS LAB ORDER 2021-09-[address] [facility] 11:29:37 [facility] RRL CRITICAL LABS 2021-09-[address] [facility] (ABG,NA,K,H&H,GLUCOSE) 11:07:40 [facility] enter BLOOD GAS, ARTERIAL 2021-09-[address] [facility] 11:07:40 [facility] SODIUM NA-STAT LAB 2021-09-[address] [facility] 11:07:40 [facility] POTASSIUM-STAT LAB 2021-09-[address] [facility] 11:07:40 [facility] GLUCOSE-STAT LAB 2021-09-[address] [facility] 11:07:40 [facility] HGB/HCT (H&H) - STAT LAB 2021-09-[address] [facility] 11:07:40 [facility] POCT-ACT 2021-09-[address] [facility] 10:57:00 [facility] LACTIC ACID, ARTERIAL 2021-09-[address] [facility] 10:44:04 [facility] POCT-ACT 2021-09-[address] [facility] 10:41:00 [facility] RRL CRITICAL LABS 2021-09-[address] [facility] (ABG,NA,K,H&H,GLUCOSE) 10:38:15 [facility] enter BLOOD GAS, ARTERIAL 2021-09-[address] [facility] 10:38:15 [facility] SODIUM NA-STAT LAB 2021-09-07 Ramya, Colby [facility] 10:38:15 [facility] POTASSIUM-STAT LAB 2021-09-[address] [facility] 10:38:15 [facility] GLUCOSE-STAT LAB 2021-09-[address] [facility] 10:38:15 [facility] HGB/HCT (H&H) - STAT LAB 2021-09-[address] [facility] 10:38:15 [facility] ANESTHESIA ROXI 2021-09-[address] [facility] 10:08:54 [facility] POCT-ACT 2021-09-07 Jing, Jerrell [facility] 10:07:00 [facility] POCT-ACT 2021-09-07 Jing, Jerrell [facility] 09:32:00 [facility] RRL CRITICAL LABS 2021-09-[address] [facility] (ABG,NA,K,H&H,GLUCOSE) 08:35:02 [facility] enter CALCIUM, IONIZED 2021-09-[address] [facility] 08:35:02 [facility] BLOOD GAS, ARTERIAL 2021-09-[address] [facility] 08:35:02 [facility] SODIUM NA-STAT LAB 2021-09-07 HidalgoDarrel zuñiga [facility] 08:35:02 [facility] POTASSIUM-STAT LAB 2021-09-07 H[address]goDarrel zuñiga [facility] 08:35:02 [facility] GLUCOSE-STAT LAB 2021-09-[address] H[address]goDarrel zuñiga [facility] 08:35:02 [facility] HGB/HCT (H&H) - STAT LAB 2021-09-[address] [facility] 08:35:02 [facility] ROBOTIC MITRAL VALVE REPLACEMENT 2021-09-[address] [facility] 07:45:00 [facility] ROBOTIC THORACOSCOPY 2021-09-[address] [facility] (VATS),LIGATION ATRIAL APPENDAGE 07:45:00 [facility] MAZE PROCEDURE, MODIFIED 2021-09-[address] [facility] 07:45:00 [facility] ECHOCARDIOGRAM, 3D, 2021-09-[address] [facility] TRANSESOPHAGEAL 07:45:00 [facility] ECG 12-LEAD 2021-09-[address] [facility] 04:35:18 [facility] ECG 12-LEAD 2021-09-07 Unknown, Hl7 [facility] 04:35:18 [facility] ECG 12-LEAD 2021-09-07 Unknown, Hl7 [facility] 04:35:18 [facility] TYPE AND SCREEN, AUTOMATED 2021-09-07 Nieves, Herve [facility] 02:59:00 [facility] CBC W/PLT COUNT & AUTO 2021-09-07 Fargabe, Basuziel [facility] DIFFERENTIAL 02:59:00 [facility] HEMOGLOBIN A1C 2021-09-07 Nieves, Herve [facility] 02:59:00 [facility] LIPID PANEL 2021-09-07 Nieves, Herve [facility] 02:59:00 [facility] APTT 2021-09-07 Nieves, Herve [facility] 02:59:00 [facility] TSH 2021-09-07 Nieves, Herve [facility] 02:59:00 [facility] CBC W/PLT COUNT & AUTO 2021-09-07 Fargabe, Bashar [facility] DIFFERENTIAL 02:59:00 [facility] PROTHROMBIN TIME/INR 2021-09-[address] [facility] 02:59:00 [facility] BLOOD GAS, VENOUS 2021-09-[address] [facility] 02:59:00 [facility] COMPREHENSIVE METABOLIC PANEL 2021-09-07 [address] Lag[address] [facility] 02:59:00 [facility] MAGNESIUM 2021-09-[address] [facility] 02:59:00 [facility] PHOSPHORUS 2021-09-[address] [facility] 02:59:00 [facility] POCT-GLUCOSE METER 2021-09-[address] [facility] 21:09:00 [facility] APTT 2021-09-[address] [facility] 17:52:00 [facility] PROTHROMBIN TIME/INR 2021-09-[address] [facility] 17:52:00 [facility] POCT-GLUCOSE METER 2021-09-06 Jing, Jerrell [facility] 17:14:00 [facility] POCT-GLUCOSE METER 2021-09-06 Jing, Jerrell [facility] 11:09:00 [facility] APTT 2021-09-06 Zully Lagunaan A [facility] 11:05:00 [facility] POCT-GLUCOSE METER 2021-09-06 Jing, Jerrell [facility] 08:04:00 [facility] ECG 12-LEAD 2021-09-06 Zully Lagunaan A [facility] 07:15:01 [facility] ECG 12-LEAD 2021-09-06 Unknown, Hl7 [facility] 07:15:01 [facility] ECG 12-LEAD 2021-09-06 Unknown, Hl7 [facility] 07:15:01 [facility] ECG 12-LEAD 2021-09-06 Unknown, Hl7 [facility] 07:12:35 [facility] ECG 12-LEAD 2021-09-06 Unknown, Hl7 [facility] 07:12:35 [facility] CBC W/PLT COUNT & AUTO 2021-09-06 Jean-Claudejo, Bashar [facility] DIFFERENTIAL 05:03:00 [facility] BLOOD GAS, VENOUS 2021-09-06 Kameron Laguna A [facility] 05:03:00 [facility] BASIC METABOLIC PANEL (7) 2021-09-06 Kameron Laguna A [facility] 05:03:00 [facility] MAGNESIUM 2021-09-06 Kameron Laguna A [facility] 05:03:00 [facility] CBC W/PLT COUNT & AUTO 2021-09-06 Jean-Claudegabe, Bashar [facility] DIFFERENTIAL 05:03:00 [facility] APTT 2021-09-06 Kameron Laguna A [facility] 05:03:00 [facility] APTT 2021-09-05 Jing, Jerrell [facility] 22:08:00 [facility] POCT-GLUCOSE METER 2021-09-05 Jing, Jerrell [facility] 21:45:00 [facility] ECG 12-LEAD 2021-09-05 Luz Elena, Kameron A [facility] 20:35:24 [facility] ECG 12-LEAD 2021-09-05 Unknown, Hl7 [facility] 20:35:24 [facility] ECG 12-LEAD 2021-09-05 Unknown, Hl7 [facility] 20:35:24 [facility] POCT-GLUCOSE METER 2021-09-05 Jing, Jerrell [facility] 17:04:00 [facility] APTT 2021-09-05 Kameron Laguna A [facility] 16:36:00 [facility] B-TYPE NATRIURETIC FACTOR (BNP) 2021-09-[address] [facility] 16:36:00 [facility] BASIC METABOLIC PANEL (7) 2021-09-[address] [facility] 16:36:00 [facility] MAGNESIUM 2021-09-05 Kameron Laguna A [facility] 16:36:00 [facility] POCT-GLUCOSE METER 2021-09-05 Jing, Jerrell [facility] 11:28:00 [facility] POCT-GLUCOSE METER 2021-09-05 Jing, Jerrell [facility] 08:21:00 [facility] APTT 2021-09-05 Zully Lagunaan A [facility] 08:16:00 [facility] APTT 2021-09-05 Kameron Laguna A [facility] 04:28:00 [facility] BASIC METABOLIC PANEL (7) 2021-09-05 Kameron Laguna A [facility] 04:28:00 [facility] MAGNESIUM 2021-09-05 Kameron Laguna A [facility] 04:28:00 [facility] BLOOD GAS, VENOUS 2021-09-05 Kameron Laguna A [facility] 04:28:00 [facility] VANCOMYCIN LEVEL, TROUGH 2021-09-05 Ofoegbuna, Ifoma [facility] 04:28:00 [facility] XR CHEST 1 VIEW PORTABLE / BEDSIDE 2021-09-05 L[address] [facility] 00:32:00 [facility] POCT-GLUCOSE METER 2021-09-04 Jing, Jerrell [facility] 23:57:00 [facility] APTT 2021-09-[address] [facility] 22:30:00 [facility] POCT-GLUCOSE METER 2021-09-04 Jing, Jerrell [facility] 22:29:00 [facility] HC CAROTID DOPPLER LILO 2021-09-[address] [facility] 20:37:00 [facility] POCT-GLUCOSE METER 2021-09-04 Jing, Jerrell [facility] 18:02:00 [facility] BASIC METABOLIC PANEL (7) 2021-09-[address] [facility] 18:02:00 [facility] MAGNESIUM 2021-09-[address] [facility] 18:02:00 [facility] BLOOD GAS, VENOUS 2021-09-[address] [facility] 18:02:00 [facility] CTA CHEST 2021-09-[address] [facility] 15:55:00 [facility] CTA ABDOMEN & PELVIS 2021-09-[address] [facility] 15:55:00 [facility] APTT 2021-09-04 Kameron Laguna A [facility] 15:16:00 [facility] APTT 2021-09-04 Kameron Laguna A [facility] 14:00:00 [facility] APTT 2021-09-[address] [facility] 12:58:00 [facility] POCT-GLUCOSE METER 2021-09-04 Jing, Jerrell [facility] 12:21:00 [facility] TRANSESOPHAGEAL ECHO 2021-09-[address] [facility] 10:56:06 [facility] POCT-GLUCOSE METER 2021-09-04 Jing, Jerrell [facility] 09:29:00 [facility] CBC W/PLT COUNT & AUTO 2021-09-04 Ali, Hiba Cooper [facility] DIFFERENTIAL 04:47:00 [facility] CBC W/PLT COUNT & AUTO 2021-09-04 Ali, Hiba Cooper [facility] DIFFERENTIAL 04:47:00 [facility] BASIC METABOLIC PANEL (7) 2021-09-04 Kameron Laguna A [facility] 04:47:00 [facility] MAGNESIUM 2021-09-04 Kameron Laguna A [facility] 04:47:00 [facility] APTT 2021-09-04 Luz Elena Kameron A [facility] 04:47:00 [facility] BLOOD GAS, VENOUS 2021-09-04 Luz Elena Kameron A [facility] 04:36:00 [facility] XR CHEST 1 VIEW PORTABLE / BEDSIDE 2021-09-[address] [facility] 00:40:00 [facility] POCT-GLUCOSE METER 2021-09-03 Jing, Jerrell [facility] 22:04:00 [facility] POCT-GLUCOSE METER 2021-09-03 Jing, Jrerell [facility] 16:27:00 [facility] PROCALCITONIN 2021-09-03 Luz Elena Kameron A [facility] 16:04:00 [facility] BASIC METABOLIC PANEL (7) 2021-09-03 Luz Elena Kameron A [facility] 16:04:00 [facility] MAGNESIUM 2021-09-03 Luz Elena Kameron A [facility] 16:04:00 [facility] BLOOD GAS, VENOUS 2021-09-03 Luz Elena Kameron A [facility] 16:04:00 [facility] ECG 12-LEAD 2021-09-[address] [facility] 15:00:16 [facility] ECG 12-LEAD 2021-09-03 Unknown, Hl7 [facility] 15:00:16 [facility] ECG 12-LEAD 2021-09-03 Unknown, Hl7 [facility] 15:00:16 [facility] ECG 12-LEAD 2021-09-03 Unknown, Hl7 [facility] 14:59:48 [facility] ECG 12-LEAD 2021-09-03 Unknown, Hl7 [facility] 14:59:48 [facility] 2D ECHO W/ DOPPLER (CW/PW/COLOR) 2021-09-[address] [facility] 09:48:42 [facility] CONT WAVE PULSED DOPPLER 2021-09-03 Luz Elena Kameron Rut [facility] 09:44:53 [facility] COLOR-FLOW MAPPING 2021-09-03 Kameron Laguna A [facility] 09:44:52 [facility] ECG 12-LEAD 2021-09-03 Unknown, Hl[facility] 07:30:39 [facility] ECG 12-LEAD 2021-09-03 Unknown, Hl7 [facility] 07:30:39 [facility] ECG 12-LEAD 2021-09-03 Unknown, Hl7 [facility] 07:30:39 [facility] ECG 12-LEAD 2021-09-03 Unknown, Hl7 [facility] 07:30:02 [facility] ECG 12-LEAD 2021-09-03 Unknown, Hl7 [facility] 07:30:02 [facility] ECG 12-LEAD 2021-09-03 Unknown, Hl7 [facility] 07:30:02 [facility] BLOOD CULTURE 2021-09-[address] [facility] 06:56:00 [facility] CBC W/PLT COUNT & AUTO 2021-09-03 Ali, Hiba [facility] DIFFERENTIAL 04:31:00 [facility] CBC W/PLT COUNT & AUTO 2021-09-03 Ali, Hiba [facility] DIFFERENTIAL 04:31:00 [facility] BASIC METABOLIC PANEL (7) 2021-09-03 Ali, Hiba Cooper [facility] 04:31:00 [facility] B-TYPE NATRIURETIC FACTOR (BNP) 2021-09-[address] [facility] 04:31:00 [facility] BLOOD GAS, VENOUS 2021-09-[address] [facility] 04:31:00 [facility] HIGH SENSITIVITY TROPONIN I 2021-09-03 Adhi, Otis [facility] 04:31:00 [facility] LACTIC ACID, VENOUS 2021-09-03 [facility] 04:31:00 [facility] MAGNESIUM 2021-09-[address] [facility] 04:31:00 [facility] XR CHEST 1 VIEW PORTABLE / BEDSIDE 2021-09-03 [address] unmi [facility] 02:05:00 [facility] HIGH SENSITIVITY TROPONIN I 2021-09-02 Adhi, Otis [facility] 22:33:00 [facility] LACTIC ACID, VENOUS 2021-09-[address] [facility] 22:33:00 [facility] LACTIC ACID, VENOUS 2021-09-02 Nadimpalli, [facility] 19:28:00 [facility] BASIC METABOLIC PANEL (7) 2021-09-02 Nadimpalli, [facility] 19:28:00 [facility] B-TYPE NATRIURETIC FACTOR (BNP) 2021-09-02 Ali, Hiba Cooper [facility] 17:17:00 [facility] PROCALCITONIN 2021-09-02 Ali, Hiba Cooper [facility] 17:17:00 [facility] HIGH SENSITIVITY TROPONIN I 2021-09-02 Ali, Hiba Cooper [facility] 17:17:00 [facility] LACTIC ACID, ARTERIAL 2021-09-02 Ali, H[facility] 17:17:00 [facility] POCT-BLOOD GASES, ARTERIAL 2021-09-02 Ali, [facility] 17:15:00 [facility] POCT-SODIUM 2021-09-02 Ali, Hiba Cooper [facility] 17:15:00 Medical Center POCT-POTASSIUM 2021-09-02 Ali, Hiba Cooper [facility] 17:15:00 [facility] POCT-HEMOGLOBIN 2021-09-02 Ali, Hiba Cooper [facility] 17:15:00 Medical Center POCT-HEMATOCRIT 2021-09-02 Ali, Hiba Cooper [facility] 17:15:00 [facility] POCT-GLUCOSE 2021-09-02 Ali, Hiba Cooper [facility] 17:15:00 [facility] Center XR CHEST 1 VIEW PORTABLE / BEDSIDE 2021-09-02 Ali, Hiba Isaias ir [facility] 16:58:00 [facility] ECG 12-LEAD 2021-09-02 Unknown, Hl7 [facility] 16:50:07 [facility] ECG 12-LEAD 2021-09-[address] [facility] 16:50:07 [facility] ECG 12-LEAD 2021-09-02 Unknown, Hl7 [facility] 16:50:07 [facility] ECG 12-LEAD 2021-09-02 Unknown, Hl7 [facility] 16:49:46 [facility] ECG 12-LEAD 2021-09-02 Unknown, Hl7 [facility] 16:49:46 [facility] ECG 12-LEAD 2021-09-02 Unknown, Hl7 [facility] 16:49:46 [facility] ECG 12-LEAD 2021-09-02 Unknown, Hl7 [facility] 16:48:34 [facility] ECG 12-LEAD 2021-09-02 Unknown, Hl7 [facility] 16:48:34 [facility] ECG 12-LEAD 2021-09-02 Unknown, Hl7 [facility] 16:48:19 [facility] ECG 12-LEAD 2021-09-02 Unknown, Hl7 [facility] 16:48:19 [facility] CBC W/PLT COUNT & AUTO 2021-09-02 Ali, Hiba Cooper [facility] 05:14:00 [facility] CBC W/PLT COUNT & AUTO 2021-09-02 Ali, Hiba Cooper [facility] 05:14:00 [facility] BASIC METABOLIC PANEL (7) 2021-09-02 Ali, Hiba Cooper [facility] 05:14:[address] [facility] [address] CHEST WITH IV CONTRAST 2021-09-01 Ali, Hiba Cooper [facility] 23:45:00 [facility] FERRITIN 2021-09-01 Ali, Hiba Cooper [facility] 17:14:00 [facility] IRON, TIBC, % SAT. (WITHOUT 2021-09-01 Ali, Hiba Cooper [facility] FERRITIN) 17:14:00 [facility] 2D ECHO W/ DOPPLER (CW/PW/COLOR) 2021-09-[address] [facility] 13:34:34 [facility] [place] ESOPH SWALLOW FUNCT WITH CINE 2021-09-[address] [facility] VIDEO 11:43:00 [facility] REPORT OF PROCEDURE - ENDOSCOPY 2021-09-[address] [facility] URL 08:31:23 [facility] ESOPHAGOGASTRODUODENOSCOPY 2021-09-[address] [facility] 07:49:00 [facility] CBC W/PLT COUNT & AUTO 2021-09-[address] [facility] DIFFERENTIAL 05:48:00 [facility] CBC W/PLT COUNT & AUTO 2021-09-[address] [facility] DIFFERENTIAL 05:48:00 [facility] BASIC METABOLIC PANEL (7) 2021-09-01 Jonnie, Michael Hendrickson [facility] 05:48:00 [facility] HEPATIC FUNCTION PANEL 2021-09-01 Jonnie, Michael Hendrickson [facility] 05:48:00 [facility] PROTHROMBIN TIME/INR 2021-09-01 Jonnie, Michael Hendrickson [facility] 05:48:00 [facility] MAGNESIUM 2021-09-[address] [facility] 05:48:00 [facility] PHOSPHORUS 2021-09-[address] [facility] 05:48:00 [facility] TSH/FREE T4 IF INDICATED 2021-09-[address] [facility] 05:48:00 [facility] ECG 12-LEAD 2021-08-31 Unknown, Hl7 [facility] 16:26:58 [facility] ECG 12-LEAD 2021-08-31 Unknown, Hl7 [facility] 16:26:58 [facility] ECG 12-LEAD 2021-08-31 Unknown, Hl7 [facility] 16:26:58 [facility] SARS-COV2/RT-PCR ([facility]) 2021-08-31 Gisele Fitzgerald ka [facility] 14:36:00 [facility] LACTIC ACID, VENOUS 2021-08-31 Amilcar, Alexa [facility] 12:48:00 [facility] CBC W/PLT COUNT & AUTO 2021-08-31 Kirstensaanatoliyi, Alexa [facility] 12:46:00 [facility] BASIC METABOLIC PANEL (7) 2021-08-31 Kirstensaanatoliyi, Alexa [facility] 12:46:00 [facility] CBC W/PLT COUNT & AUTO 2021-08-31 Kirstensaanatoliyi, Alexa [facility] 12:46:00 [facility] HIGH SENSITIVITY TROPONIN I 2021-08-[address] [facility] 12:46:00 [facility] PROTHROMBIN TIME/INR 2021-08-[address] [facility] 12:46:00 [facility] APTT 2021-08-[address] [facility] 12:46:00 [facility] EKG-SCANNED 2021-08-[address] [facility] 00:00:00 [facility] ELECTROCARDIOGRAM COMPLETE 2021-07-18 [facility] 21:05:00 [place] ESOPHAGUS 2021-07-[address] [facility] 10:07:00 [facility] BASIC METABOLIC PANEL (7) 2021-07-04 [facility] 04:05:00 [facility] SARS-COV2/RT-PCR ([facility]) 2021-07-03 George, Zeyad n [facility] 16:14:00 [facility] D-DIMER 2021-07-03 George, Thuyen [facility] 16:14:00 [facility] BLOOD GAS, VENOUS 2021-07-03 George, Thuyen [facility] 16:14:00 [facility] XR CHEST 2 VIEWS 2021-07-03 George, Thuyen [facility] 13:42:00 [facility] CBC W/PLT COUNT & AUTO 2021-07-03 George, [facility]en [facility] 13:28:00 [facility] B-TYPE NATRIURETIC FACTOR (BNP) 2021-07-03 George, Thuyen [facility] 13:28:00 [facility] COMPREHENSIVE METABOLIC PANEL 2021-07-03 George, [facility]en [facility]00 [facility] CBC W/PLT COUNT & AUTO 2021-07-03 George, [facility]en [facility]FFER[facility] 13:28:00 [facility] LIPASE 2021-07-03 George, Thuyen [facility] 13:28:00 [facility] HIGH SENSITIVITY TROPONIN I 2021-07-03 George, Thuyen [facility] 13:28:00 [facility] ECG 12-LEAD 2021-07-[address] [facility] 13:11:56 [facility] ECG 12-LEAD 2021-07-03 Unknown, Hl7 [facility] 13:11:56 [facility] ECG 12-LEAD 2021-07-03 Unknown, Hl7 [facility] 13:11:56 [facility] EKG-SCANNED 2021-07-03 Provider, Default [facility] 00:00:00 [facility] HEMOGLOBIN AND HEMATOCRIT 2021-05-26 Gadicherla, Noa [facility] 04:39:00 [facility] PREPARE LEUKO-REDUCED RBC 2021-05-25 Rajha, Suellen [facility] 23:54:00 [facility] HEMOGLOBIN AND HEMATOCRIT 2021-05-25 Gadicherla, Noa [facility] 18:30:00 [facility] HEMOGLOBIN AND HEMATOCRIT 2021-05-25 Gadicherla, Noa [facility] 10:43:00 [facility] HEMOGLOBIN AND HEMATOCRIT 2021-05-25 Gadicherla, Noa [facility] 04:19:00 [facility] HEMOGLOBIN AND HEMATOCRIT 2021-05-[address] [facility] 16:22:00 [facility] HEMOGLOBIN AND HEMATOCRIT 2021-05-[address] [facility] 08:03:00 [facility] BASIC METABOLIC PANEL (7) 2021-05-[address] [facility] 08:03:00 [facility] TRANSFUSE LEUKO-REDUCED RED BLOOD 2021-05-[address] [facility] CELLS 01:55:00 [facility] SARS-COV2/RT-PCR ([facility]) 2021-05-23 Obdulia, Suellen [facility] 19:01:00 [facility] TYPE AND SCREEN, AUTOMATED 2021-05-23 Zully Steinera [facility] 16:24:00 [facility] CBC W/PLT COUNT & AUTO 2021-05-23 Obdulia, Suellen [facility] DIFFER[facility] 16:24:00 [facility] CBC W/PLT COUNT & AUTO 2021-05-23 Obdulia, Suellen [facility]FFER[facility] 16:24:00 [facility] PT/APTT 2021-05-23 Obdulia, Suellen [facility] 16:24:00 [facility] COMPREHENSIVE METABOLIC PANEL 2021-05-23 Obdulia, Suellen [facility] 16:23:00 [facility] LIPASE 2021-05-23 Obdulia, Suellen [facility] 16:23:00 [facility] ECG 12-LEAD 2021-05-23 Unknown, Hl7 [facility] 15:13:04 [facility] EKG-SCANNED 2021-05-23 Provider, Default [facility] 00:00:00 [facility] CBC W/PLT COUNT & AUTO 2021-05-20 Alao, Titilola [facility] DIFFERENTIAL 04:10:00 [facility] CBC W/PLT COUNT & AUTO 2021-05-20 Alao, Titilola [facility] DIFFER[facility] 04:10:00 [facility] BASIC METABOLIC PANEL (7) 2021-05-20 Alao, Titilola [facility] 04:10:00 [facility] CBC (HEMOGRAM ONLY) 2021-05-[address] [facility] 03:43:00 [facility] BASIC METABOLIC PANEL (7) 2021-05-17 Jacky Raegan [facility] 03:43:00 [facility] HEMOGLOBIN AND HEMATOCRIT 2021-05-16 Raegan Rico [facility] 20:11:00 [facility] REPORT OF PROCEDURE - ENDOSCOPY 2021-05-[address] [facility] URL 11:57:57 [facility] ESOPHAGOGASTRODUODENOSCOPY 2021-05-16 Jimmy Bowers [facility] 11:15:00 [facility] CBC W/PLT COUNT & AUTO 2021-05-[address] [facility] DIFFERENTIAL 04:48:00 [facility] CBC W/PLT COUNT & AUTO 2021-05-[address] [facility] DIFFER[facility] 04:48:00 [facility] BASIC METABOLIC PANEL (7) 2021-05-[address] [facility] 04:48:00 [facility] HEMOGLOBIN AND HEMATOCRIT 2021-05-[address] [facility] 23:52:00 [facility] SARS-COV2/RT-PCR ([facility]) 2021-05-15 Nathaniel Steward a [facility] 16:46:00 [facility] ECG 12-LEAD 2021-05-15 Unknown, Hl7 [facility] 15:26:10 [facility] TYPE AND SCREEN, AUTOMATED 2021-05-15 TarasantoJacobo [facility] 15:00:00 [facility] CBC W/PLT COUNT & AUTO 2021-05-[address] [facility] DIFFER[facility] 15:00:00 [facility] CBC W/PLT COUNT & AUTO 2021-05-[address] [facility] DIFFERENTIAL 15:00:00 [facility] COMPREHENSIVE METABOLIC PANEL 2021-05-[address] [facility] 15:00:00 [facility] MAGNESIUM 2021-05-[address] [facility] 15:00:00 [facility] PHOSPHORUS 2021-05-[address] [facility] 15:00:00 [facility] HIGH SENSITIVITY TROPONIN I 2021-05-[address] [facility] 15:00:00 [facility] XR CHEST 1 VIEW PORTABLE / BEDSIDE 2021-05-[address] [facility] 13:52:00 [facility] EKG-SCANNED 2021-05-15 Provider, Default [facility] 00:00:00 [facility] EGD (ENDO) 2019[facility]04-22 [facility] 12[facility]55[facility]59 Wil[facility] DAY SURGERY - ADC 2019-04-22 [facility] 05:01:00 Unassigned, No [facility] Plan of Care Planned Activity Planned Date Details Comments Source Future Scheduled 2022-04-19 INFLUENZA VACCINE (#1) [facility] 00:00:00 [code = INFLUENZA Medical Ce nter VACCINE (#1)] Future Scheduled 2022-04-19 INFLUENZA VACCINE (#1) [facility] 00:00:00 [code = INFLUENZA Medical Ce nter VACCINE (#1)] Future Scheduled 2021-12-07 ECHO, COMPLETE [code = Expected: [employer] Test 00:00:00 04473] 12/07/2021, of Medicine Expires: 04/11/2022 Future Scheduled 2021-10-12 ELECTROCARDIOGRAM [facility] Test 08:58:20 COMPLETE [code = 10842] of M edicine Future Scheduled 2021-10-12 TETANUS SHOT (ADULT) [facility] Test 08:34:44 [code = TETANUS SHOT of Medi cine (ADULT)] Future Scheduled 2021-10-12 BMI FOLLOW UP PLAN [code [facility] Test 08:34:44 = BMI FOLLOW UP PLAN] of Med icine Future Scheduled 2021-10-12 Hepatitis C screening [facility] Test 08:34:44 (procedure) [code = of Medic ine 890464835] Future Scheduled 2021-10-12 ZOSTER VACCINE (1 of 2) [facility] Test 08:34:44 [code = ZOSTER VACCINE of Me dicine (1 of 2)] Future Scheduled 2021-10-12 FALL SCREEN [code = FALL [facility] Test 08:34:44 SCREEN] of Medicine Future Scheduled 2021-10-12 Pneumococcal 65+ (1 of 1 [facility] Test 08:34:44 - PPSV23) [code = of Medicin e Pneumococcal 65+ (1 of 1 - PPSV23)] Future Scheduled 2021-10-12 FLU VACCINE > 6 MONTHS [address] [facility] Test 08:34:44 [code = FLU VACCINE > 6 of M edicine MONTHS] Future Scheduled 2021-10-12 MEDICARE IPPE (WELCOME B [facility] Test 08:34:44 TO MEDICARE) [code = of Medi cine MEDICARE IPPE (WELCOME TO MEDICARE)] Future Scheduled 2021-08-20 MEDICARE ANNUAL WELLNESS [facility] Test 00:00:00 (YEAR 2 or FIRST YEAR if Med ical Center no IPPE) [code = MEDICARE ANNUAL WELLNESS (YEAR 2 or FIRST YEAR if no IPPE)] Future Scheduled 2021-08-20 MEDICARE ANNUAL WELLNESS [facility] Test 00:00:00 (YEAR 2 or FIRST YEAR if Med ical Center no IPPE) [code = MEDICARE ANNUAL WELLNESS (YEAR 2 or FIRST YEAR if no IPPE)] Future Scheduled 2021-08-08 COVID-19 VACCINE ([facility] - [facility] 00:[facility]00 Pfizer series) [code = Medic al Center COVID-19 VACCINE (2 - Pfizer series)] Future Scheduled 2021-08-08 COVID-19 VACCINE (2 - [facility] 00:00:00 Pfizer series) [code = Medic al Center COVID-19 VACCINE (2 - Pfizer series)] Future Scheduled 2021-07-20 Pneumococcal 65+ (1 of 2 [facility] Test 15:04:42 - PPSV23) [code = of Medicin e Pneumococcal 65+ (1 of 2 - PPSV23)] Future Scheduled 2021-07-20 TETANUS SHOT (ADULT) [facility] Test 15:04:42 [code = TETANUS SHOT of Medi cine (ADULT)] Future Scheduled 2021-07-20 BMI FOLLOW UP PLAN [code [facility] Test 15:04:42 = BMI FOLLOW UP PLAN] of Med icine Future Scheduled 2021-07-20 Hepatitis C screening Ba [facility] Test 15:04:42 (procedure) [code = of Medic ine [id number]] Future Scheduled 2021-07-20 ZOSTER VACCINE (1 of 2) [facility] Test 15:04:42 [code = ZOSTER VACCINE of Ga dicine (1 of 2)] Future Scheduled 2021-07-20 FALL SCREEN [code = FALL [facility] Test 15:04:42 SCREEN] of Medicine Future Scheduled 2021-07-20 MEDICARE IPPE (WELCOME B [facility] Test 15:04:42 TO MEDICARE) [code = of Medi cine MEDICARE IPPE (WELCOME TO MEDICARE)] Future Scheduled 2021-07-20 FLU VACCINE > 6 MONTHS [facility] 15:04:42 [code = FLU VACCINE > 6 of M edicine MONTHS] Future Scheduled 2021-07-18 ELECTROCARDIOGRAM [facility] Test 15:05:03 COMPLETE [code = 46620] of M edicine Future Scheduled 2021-06-22 CBC W/AUTO DIFF WITH Ordered: [facility] Test 09:11:41 PLATELETS [code = 06/22/2021 of Medicin e 86858-7] Future Scheduled 2021-06-22 FERRITIN [code = Ordered: [facility] Test 09:11:41 91492-6] 06/22/2021 of Medicine Future Scheduled 2021-06-22 IRON+TIBC+%SAT [code = Ordered: [facility] 09:11:41 NOCPT] 06/22/2021 of Medicine Future Scheduled 2021-06-22 TETANUS SHOT (ADULT) [facility] Test 08:19:01 [code = TETANUS SHOT of Medi cine (ADULT)] Future Scheduled 2021-06-22 Hepatitis C screening [facility] Test 08:19:01 (procedure) [code = of Medic ine [id number]] Future Scheduled 2021-06-22 ZOSTER VACCINE (1 of 2) [facility] Test 08:19:01 [code = ZOSTER VACCINE of Me dicine (1 of 2)] Future Scheduled 2021-06-22 FALL SCREEN [code = FALL [facility] Test 08:19:01 SCREEN] of Medicine Future Scheduled 2021-06-22 PNEUMOVAX >=65 (PPSV23) [facility] Test 08:19:01 [code = PNEUMOVAX >=65 of Me dicine (PPSV23)] Future Scheduled 2021-06-22 MEDICARE IPPE (WELCOME B [facility] Test 08:19:01 TO MEDICARE) [code = of Medi cine MEDICARE IPPE (WELCOME TO MEDICARE)] Future Scheduled 2021-06-22 FLU VACCINE > 6 MONTHS B [facility] Test 08:19:01 [code = FLU VACCINE > 6 of M edicine MONTHS] Future Scheduled 1993 SHINGLES VACCINES ([address] [facility] Test 00:00:00 2) [code = SHINGLES Medical Center VACCINES (1 of 2)] Future Scheduled 1993 SHINGLES VACCINES ([address] [facility] Test 00:00:00 2) [code = SHINGLES Medical Center VACCINES (1 of 2)] Future Scheduled 1962 DTAP/TDAP/TD VACCINES ([address] [facility] Test 00:00:00 - Tdap) [code = Medical Cent er DTAP/TDAP/TD VACCINES (1 - Tdap)] Future Scheduled 1962 DTAP/TDAP/TD VACCINES ([address] [facility] Test 00:00:00 - Tdap) [code = Medical Cent er DTAP/TDAP/TD VACCINES (1 - Tdap)] Future Scheduled 1961 HEPATITIS C [facility]CRE[facility]ING [facility] 00:00:00 [code = HEPATITIS C Medical Center SCREENING] Future Scheduled 1961 HEPATITIS C [facility] 00:00:00 [code = HEPATITIS C Medical Center SCREENING] Encounters Start End Encounter Admission Attending Care Care Encounter Source Date/Time Date/Time Type Type Clinicians Facility Department ID 2021-09-20 Outpatient 3 RUBY VICKY CRD [id number] [facility] 15:05:33 [facility] 2021-09-15 Outpatient 3 RUBY VICKY CRD [id number] [facility] 14:41:07 ALBA 0128 [facility] [place] [facility] 2021-09-14 Outpatient 3 [id number] ENCPL CRD [id number] [facility] 13:28:13 [facility] [place] 2021-09-14 Outpatient 3 [id number] ENCPL REF [id number] [facility] 13:27:27 [facility] [place] 2021-09-14 Outpatient 3 [id number] ENCPL REF [id number] [facility] 13:27:13 [facility] [place] 2021-05-28 Inpatient ER ELLA, [facility] [id number] [facility] 12:00:47 FANWily-STIVEN 2021-11-21 2021-11-21 Anesthesia Hernandez, [facility] [id number] 23:59:59 23:59:59 Event [facility] 2021-11-21 2021-11-21 Anesthesia Hernandez, [facility] [id number] 23:59:59 23:59:59 Event [facility] 2021-11-06 2021-11-06 [id number] 00:00[facility]00 00:00:00 [facility] 2021-11-06 2021-11-06 Telephone Elle [facility] [id number] 00:00:00 00:00:00 [facility] 2021-10-12 2021-10-12 Office GREG CHRISTIAN [id number] [facility] 08:21:22 11:05:40 Visit MAHBOOB AMBULATOR [id number] College Y [id number] [facility] eddie 375 e 2021-10-04 2021-10-04 Office Mack, [facility] [id number] 09:00:00 09:30:00 Visit [facility] 2021-10-04 2021-10-04 Office Mack, [facility] [id number] 09:00:00 09:30:00 Visit [facility] 2021-10-04 2021-10-04 Outpatient ARCELIA PARK, [facility] SLE [id number] [facility] 08:41:28 08:41:28 [facility] 2021-08-31 2021[facility]09-19 [facility] [id number] [facility] 12:30:00 17:01:00 Encounter Michael Cristina, [facility], Raz [facility]div[facility], [facility] 2021-08-31 2021-09-[address] [facility] Alexa Jim [facility] [id number] [facility] 12:30:00 17:01:00 Encounter Michael Cristina, [facility], Raz Saldivar, alisson Arnold, [facility] 2021-08-31 2021-09-19 Inpatient ER BRITTANY ARNOLD Surgery [id number] SLE 12:30:00 17:01:00 [facility] 2021-09-07 2021-09-07 Anesthesia Rocky [facility] [id number] 07:58:00 15:09:00 Event Darrel Kelly [facility] 2021-09-07 2021-09-07 Anesthesia Rocky [facility] [id number] 07:58:00 15:09:00 Event Darrel Kelly [facility] 2021-09-07 2021-09-07 Surgery Ramya [facility] [id number] 08:00:00 11:45:00 [facility] 2021-09-07 2021-09-07 Surgery Ramya [facility] [id number] 08:00:00 11:45:00 [facility] 2021-09-03 2021-09-03 Outpatient NAVYA CAMARILLO [id number] Navya 00:00:00 00:00:00 ELLIS Seybol d 2021-09-02 2021-09-02 Outpatient BCM BCM [id number] [facility] 00:00:00 23:59:00 [facility] e 2021-09-01 2021-09-01 Surgery Maria Teresa, [facility] [id number] 08:00:00 09:00:00 [facility] 2021-09-01 2021-09-01 [facility] [id number] 08:00:00 09:00:00 [facility] 2021-09-01 2021-09-01 Anesthesia Timmy [facility] [id number] 08:01:00 08:36:00 Event [facility] 2021-09-01 2021-09-01 Anesthesia Timmy [facility] [id number] 08:01:00 08:36:00 Event [facility] 2021-08-31 2021-08-31 Outpatient BCM BCM [id number] [facility] 12:30:00 23:59:00 [facility] 2021-08-31 2021-08-31 Orders [facility] [id number] 00[facility]00:00 00:00:00 Only [facility] 2021-08-31 2021-08-31 Travel [facility] [id number] [facility] 00[facility]:00 [facility] 2021-08-31 2021-08-31 Orders [facility] [id number] 00:00:00 00:00:00 Only [facility] 2021-08-31 2021-08-31 Travel [facility] [id number] [facility] 00:[facility]:00 [facility] 2021-07-28 2021-08-04 Inpatient 3 RUBY, ENCPL CRD [id number] 21 [facility] 12:00:00 11:50:00 ALBA 1210 [facility] it[facility] [place] 2021-07-18 2021-07-18 Outpatient BCM [facility] [id number] [facility] 15:48:01 16:26:04 Colleg e [facility] Medicin e 2021-07-18 2021-07-18 Office GREG CHRISTIAN 1.2.840.114 [id number] [facility] 14:30:22 16:15:56 Visit MAHBOOB AMBULATOR 350.1.13.21 College Y 0.2.7.2.686 [id number] Medi eddie 375 e 2021-07-03 2021-07-04 Emergency George, herminia [facility] [id number] [facility] St 12:24:00 14:27:00 HaseebDarlene bates [facility] 2021-07-03 2021-07-04 Emergency ER Tacos George [facility] [id number] 12:24:00 14:27:00 Haseeb Darlene [facility] 2021-07-03 2021-07-04 Outpatient ER DARLENE SPARKS [facility] Emergency 20 [id number] [facility] 12:24:00 14:27:00 2021-07-03 2021-07-03 Outpatient [facility] [id number] [facility] 00:00:00 23:59:00 [facility] 2021-07-03 2021-07-03 Orders [facility] [id number] 00:00:00 00:00:00 Only [facility] 2021-07-03 2021-07-03 Travel [facility] [id number] [facility] 00:00:00 [facility] 2021-07-03 2021-07-03 Orders [facility] [id number] 00:00:00 00:00:00 Only [facility] 2021-07-03 2021-07-03 Travel [facility] [id number] [facility] 00:[facility] 00:00:00 [facility] 2021-06-22 2021-06-22 Office GREG SANCHEZ 1.2.840.114 [id number] [facility] 08:13:37 11:39:39 Visit RICK AMBULATOR 350.1.13.21 College Y 0.2.7.2.686 [facility] [id number] Medi eddie 325 e 2021-05-23 2021-05-26 Hospital ER [facility] [id number] 15:12:00 15:03:00 [facility] 2021-05-26 Inpatient ER LUCASSHERRYYOU, [facility] Emergency 20 [id number] SLE 15:12:00 15:03:00 NOA 2021-05-23 2021-05-23 Outpatient [facility] [id number] [facility] 00:00:00 23:59:00 Colleg rajesh of Medicin e 2021-05-23 2021-05-23 Travel [facility] [id number] [facility] 00:[facility] 00:00:00 [facility] 2021-05-20 2021-05-20 Emergency ER [facility], [facility] [id number] 06:07:00 06:08:00 [facility] 2021-05-20 2021-05-20 Emergency ER SLE Emergency [id number] [facility] 01:57:00 01:57:00 2021-05-20 2021-05-20 Travel [facility] [id number] [facility] 00:[facility]00 00:00:00 [facility] 2021-05-15 2021-05-17 Emergency ER Jacobo Steward [facility] [id number] [facility] 12:10:00 12:56:00 Bar Toledo, Yanithya [facility]on [facility] 2021-05-16 2021-05-16 Anesthesia Dillon Tenorio [facility] [id number] 11:24:00 12:17:00 Event Karyn Joyce Justina [facility] 2021-05-16 2021-05-16 Surgery Katibeth [facility] [id number] 11:00:00 12:00:00 Jimmy [facility] 2021-05-15 2021-05-15 Outpatient BCM BC [id number] [facility] 00:00:00 23:59:00 [facility] Medicin e 2021-05-15 2021-05-15 Emergency ER [facility] Emergency [id number] [facility] 12:00:00 12:00:00 2021-05-15 2021-05-15 Travel [facility] [id number] [facility] 00:[facility]00 00:00:00 [facility] 2021-04-29 2021-04-29 Outpatient BCM BCM [id number] [facility] 00:00:00 23:59:00 [facility]in [facility] 2021-04-28 2021-04-28 Outpatient BCM BCM [id number] [facility] 12:32:00 23:59:00 Colleg e [facility] Medicin e 2019-04-22 2019-04-22 [facility] 1.2.840.114 [id number] [facility] 06:15:00 08:56:00 Encounter Katy mena 350.1.13.10 ity [place] [id number] [facility] [address] 2019-04-22 2019-04-22 [facility] 1.2.840.114 [id number] 06:15:00 08:56:00 Encounter Katy mena 350.1.13.10 [place] 4.2.7.2.686 Surgical [id number] [place] 071 2019-04-22 2019-04-22 Anesthesia Chan, [facility] 1.2.840.114 [id number] [facility] 07:54:00 08:13:00 Jaden Loyola 350.1.13.10 i ty of [place] [id number] [facility] 020 Branch 2019-04-22 2019-04-22 Anesthesia Chan, [facility] 1.2.840.114 [id number] 07:54:00 08:13:00 Jaden Loyola 350.1.13.10 [place] 4.2.7.2.686 Surgical [id number] [place] 020 2019-04-22 2019-04-22 Orders Doctor MURILLO 1.2.840.114 [id number] [facility] 00:00:00 00:00:00 Only Unassigned, ANA MARIA 350.1.13.10 ity of [place] [facility] 4.2.7.2.686 Tomas as [id number] [place] [address] Branch 2019-04-22 2019-04-22 Orders Doctor MURILLO 1.2.840.114 [id number] 00:00:00 00:00:00 Only Unassigned, ANA MARIA 350.1.13.10 [place] [facility] 4.2.7.2.686 [id number] Results Test Description Test Time Test [...] NOT 1092) ACCURATE CRE ATININE CLEARANCE IN NM EDICTING GLOMERULAR FILT RATION RATE. ESTIMATED GFR IS NOT APPLICABLE FOR DIALYSIS PATIENTS. Fiberglass Machine Operator ID - KEARA WOperator ID - KAYLEEN [id number] 04:56:54 Test Item Value Reference Range Interpretation Comments PHOSPHORUS (BEAKER) (test code = 4.1 mg/dL 2.3-4.7 604) Fiberglass Machine Operator ID - KEARA [id number] 04:56:53 Test Item Value Reference Range Interpretation Comments MAGNESIUM (BEAKER) (test code = 2.1 mg/dL 1.6-2.6 627) Fiberglass Machine Operator ID - KEARA WCALCIUM, [id number] 04:30:35 Test Item Value Reference Range Interpretation Comments CALCIUM IONIZED (BEAKER) (test 1.13 mmol/L 1.12-1.27 code = 698) PH, BLOOD (BEAKER) (test code = 7.47 1810) PROTHROMBIN TIME/[id number] 04:04:47 Test Item Value Reference Range Interpretation Comments PROTIME (BEAKER) 27.1 seconds 11.9-14.2 H (test code = 759) INR (BEAKER) (test 2.54 See_Comment [Automat ed message] code = 370) The system uTaP generated this result transmitted ref erence range: <=5.90. The reference range was not used to int erpret this result as normal/abnormal . RECOMMENDED COUMADIN/WARFARIN INR THERAPY RANGESSTANDARD DOSE: 2.0 - 3.0 Includes: PROPHYLAXIS for venous thrombosis, systemic embolization; TREATMENT for venous thrombosis and/or pulmonary embolus.HIGH RISK: Target INR is 2.5-3.5 for patients with mechanical heart valves.CBC W/PLT COUNT & AUTO [id number] 03:57:43 Test Item Value Reference Range Interpretation [...] (BEAKER) (test code = 2801) COMPREHENSIVE METABOLIC [id number] 11:28:15 Test Item Value Reference Range Interpretation [...] S NOT APPLICABLE FOR DIALYSIS PATIEN TS. Fiberglass Machine Operator ID - PIAYA LRAD, CHEST, 1 VIEW, NON [id number] 07:44:00Reason for exam:->S/p Ct SurgeryShould this be performed at the bedside?->Yes [facility] 1945 Sex: MFINAL REPORT RAD, CHEST, 1 VIEW, NON DEPT INDICATION: S/p Ct Surgery COMPARISON:Prior day's exam FINDINGS: Portable frontal view of the chest. IMPRESSION: Support Lines: Overlyingleads. Lungs and pleura: Bibasilar atelectasis and basilar opacities, unchanged. No significant pneumothorax. Heart and mediastinum: Stable contours. Additional findings: None. Signed: Gaby Cordero Verified Date/Time: 09/18/2021 07:44:52 Reading Location: [facility] Reading Room PROTHROMBIN TIME/[id number] 04:28:26 Test Item Value Reference Range Interpretation Comments PROTIME (BEAKER) 24.0 seconds 11.9-14.2 H (test code = 759) INR (BEAKER) (test 2.18 See_Comment [Automat ed message] code = 370) The system uTaP generated this result transmitted ref erence range: <=5.90. The reference range was not used to int erpret this result as normal/abnormal . RECOMMENDED COUMADIN/WARFARIN INR THERAPY RANGESSTANDARD DOSE: 2.0 - 3.0 Includes: PROPHYLAXIS for venous thrombosis, systemic embolization; TREATMENT for venous thrombosis and/or pulmonary embolus.HIGH RISK: Target INR is 2.5-3.5 for patients with mechanical heart valves.[id number] 04:17:02 Test Item Value Reference Range Interpretation Comments MAGNESIUM (BEAKER) (test code = 2.0 mg/dL 1.6-2.6 627) Fiberglass Machine Operator ID - [id number] 04:17:02 Test Item Value Reference Range Interpretation Comments PHOSPHORUS (BEAKER) (test code = 3.6 mg/dL 2.3-4.7 604) Fiberglass Machine Operator ID - DBBASIC METABOLIC [id number] 04:17:01 Test Item Value Reference Range Interpretation [...] S NOT APPLICABLE FOR DIALYSIS PATIEN TS. Fiberglass Machine Operator ID - DBCALCIUM, [id number] 03:53:15 Test Item Value Reference Range Interpretation Comments CALCIUM IONIZED (BEAKER) (test 1.13 mmol/L 1.12-1.27 code = 698) PH, BLOOD (BEAKER) (test code = 7.47 1810) CBC W/PLT COUNT & AUTO [id number] 03:52:23 Test Item Value Reference Range Interpretation [...] PERCENT (BEAKER) (test code = 2801) POC-Glucose [id number] 17:37:37 Test Item Value Reference Range Interpretation Comments POC-Glucose Meter (test 160 mg/dL 70-110 H : TE STED AT [facility] code = 1538) [address] [place] [address], 770 30: Fiberglass Machine Operator/Techni bart ID = [id number] for Rowe, Mariss a Lab Interpretation (test Abnormal code = 05351-6) [facility] [id number] 17:37:37 Test Item Value Reference Range Interpretation Comments POC-Glucose Meter (test 160 mg/dL 70-110 H : TE STED AT [facility] code = 1538) [address] [place] [address], 770 30: Fiberglass Machine Operator/Techni bart ID = [id number] for Rowe, Mariss a Lab Interpretation (test Abnormal code = 81950-9) [facility]-GLUCOSE [id number] 17:37:37 Test Item Value Reference Range Interpretation Comments POC-GLUCOSE METER 160 mg/dL 70-110 H : TESTED A T [facility] 6720 (BEAKER) (test code = [facility], 1538) 97695: Fiberglass Machine Operator/Techni brat ID = [id number] for Sammie Mercado POCT-GLUCOSE [id number] 12:40:04 Test Item Value Reference Range Interpretation Comments POC-GLUCOSE METER 126 mg/dL 70-110 H : TESTED A T [facility] 6720 (BEAKER) (test code = [facility], 1538) 08633: Fiberglass Machine Operator/Techni bart ID = [id number] for Sammie Mercado [id number] 08:29:45 Test Item Value Reference Range Interpretation Comments PHOSPHORUS (BEAKER) (test code = 4.0 mg/dL 2.3-4.7 604) Fiberglass Machine Operator ID - [id number] 08:29:44 Test Item Value Reference Range Interpretation Comments MAGNESIUM (BEAKER) (test code = 2.1 mg/dL 1.6-2.6 627) Fiberglass Machine Operator ID - DBPOCT-GLUCOSE [id number] 08:09:33 Test Item Value Reference Range Interpretation Comments POC-GLUCOSE METER 91 mg/dL 70-110 : TESTED A T [facility] 6720 (BEAKER) (test code = [facility], 1538) 90587: Fiberglass Machine Operator/Techni bart ID = [id number] for Sammie Lawson CBC W/PLT COUNT & AUTO [id number] 06:42:04 Test Item Value Reference Range Interpretation [...] PERCENT (BEAKER) (test code = 2801) PROTHROMBIN TIME/[id number] 06:23:57 Test Item Value Reference Range Interpretation Comments PROTIME (BEAKER) 23.1 seconds 11.9-14.2 H (test code = 759) INR (BEAKER) (test 2.08 See_Comment [Automat ed message] code = 370) The system uTaP generated this result transmitted ref erence range: <=5.90. The reference range was not used to int erpret this result as normal/abnormal . RECOMMENDED COUMADIN/WARFARIN INR THERAPY RANGESSTANDARD DOSE: 2.0 - 3.0 Includes: PROPHYLAXIS for venous thrombosis, systemic embolization; TREATMENT for venous thrombosis and/or pulmonary embolus.HIGH RISK: Target INR is 2.5-3.5 for patients with mechanical heart valves.CALCIUM, [id number] 05:53:20 Test Item Value Reference Range Interpretation Comments CALCIUM IONIZED (BEAKER) (test 1.13 mmol/L 1.12-1.27 code = 698) PH, BLOOD (BEAKER) (test code = 7.48 1810) RAD, CHEST, 1 VIEW, NON [id number] 05:22:00Reason for exam:->S/p Ct SurgeryShould this be performed at the bedside?->[facility] 1945 Sex: MFINAL REPORT RAD, CHEST, 1 VIEW, NON DEPT INDICATION: S/p Ct Surgery COMPARISON:Prior day's exam FINDINGS: Portable frontal view of the chest. IMPRESSION: Support Lines: None Lungsand pleura: Unchanged scattered bilateral parenchymal opacities. No new consolidation. No pneumothorax. Heart and mediastinum: Stable contours. Additional findings: None. Signed: Halley Osullivan Verified Date/Time: 09/17/2021 05:22:46 POCT-GLUCOSE [id number] 21:59:07 Test Item Value Reference Range Interpretation Comments POC-GLUCOSE METER 118 mg/dL 70-110 H : TESTED A T [facility] 6720 (BEAKER) (test code = [place], 1538) [address]: Fiberglass Machine Operator/Techni bart ID = [id number] for Co Pam diop [id number] 17:58:41 Test Item Value Reference Range Interpretation Comments MAGNESIUM (BEAKER) (test code = 2.0 mg/dL 1.6-2.6 627) Fiberglass Machine Operator ID - KEARA WPOCT-GLUCOSE [id number] 17:29:30 Test Item Value Reference Range Interpretation Comments POC-GLUCOSE METER 123 mg/dL 70-110 H : TESTED A T [facility] 6720 (BEAKER) (test code = [facility], 1538) 20771: Fiberglass Machine Operator/Techni bart ID = [id number] for Ba rrera, Sammie POCT-GLUCOSE [id number] 12:52:33 Test Item Value Reference Range Interpretation Comments POC-GLUCOSE METER 122 mg/dL 70-110 H : TESTED A T [facility] 6720 (BEAKER) (test code = [facility], 1538) 54918: Fiberglass Machine Operator/Techni bart ID = [id number] for Ba rrera, Sammie BASIC METABOLIC [id number] 08:28:13 Test Item Value Reference Range Interpretation [...] S NOT APPLICABLE FOR DIALYSIS PATIEN TS. Fiberglass Machine Operator ID - KEARA WPOCT-GLUCOSE [id number] 07:58:49 Test Item Value Reference Range Interpretation Comments POC-GLUCOSE METER 82 mg/dL 70-110 : TESTED A T [facility] 6720 ([place]) (test code = [place], 1538) 47794: Fiberglass Machine Operator/Techni bart ID = [id number] for Sammie Lawson RAD, CHEST, 1 VIEW, NON [id number] 07:01:00Reason for exam:->S/p Ct SurgeryShould this be performed at the bedside?->Yes [facility] 1945 Sex: MFINAL [...] Signed: Gaby Cordero Verified Date/Time: 09/16/2021 07:01:13 Electronically signed by: GABY CORDERO MD on 207:01 [facility] 2021-09-16 05:10:07 Test Item Value Reference Range Interpretation Comments PHOSPHORUS (BEAKER) (test code = 4.4 mg/dL 2.3-4.7 604) Fiberglass Machine Operator ID - KEARA [id number] 05:10:06 Test Item Value Reference Range Interpretation Comments MAGNESIUM (BEAKER) (test code = 2.0 mg/dL 1.6-2.6 627) Fiberglass Machine Operator ID - KEARA [id number] 04:45:18 Test Item Value Reference Range Interpretation Comments PTT (test code = 46.4 See_Comment H [Automated message] 21310-0) The system uTaP generated this result transmitted ref erence range: 22.5 - 3 6.0 seconds. The reference range was not used to int erpret this result as normal/abnormal . Lab Interpretation (test Abnormal code = 56651-7) [facility] 04:45:18 Test Item Value Reference Range Interpretation Comments PTT (test code = 46.4 See_Comment H [Automated message] 72087-0) The system uTaP generated this result transmitted ref erence range: 22.5 - 3 6.0 seconds. The reference range was not used to int erpret this result as normal/abnormal . Lab Interpretation (test Abnormal code = 90533-9) [facility] 04:45:18 Test Item Value Reference Range Interpretation Comments PARTIAL THROMBOPLASTIN TIME 46.4 seconds 22.5-36.0 H (BEAKER) (test code = 760) PROTHROMBIN TIME/[id number] 04:44:13 Test Item Value Reference Range Interpretation Comments PROTIME (BEAKER) 18.3 seconds 11.9-14.2 H (test code = 759) INR (BEAKER) (test 1.54 See_Comment [Automat ed message] code = 370) The system uTaP generated this result transmitted ref erence range: <=5.90. The reference range was not used to int erpret this result as normal/abnormal . RECOMMENDED COUMADIN/WARFARIN INR THERAPY RANGESSTANDARD DOSE: 2.0 - 3.0 Includes: PROPHYLAXIS for venous thrombosis, systemic embolization; TREATMENT for venous thrombosis and/or pulmonary embolus.HIGH RISK: Target INR is 2.5-3.5 for patients with mechanical heart valves.CALCIUM, [id number] 04:42:58 Test Item Value Reference Range Interpretation Comments CALCIUM IONIZED (BEAKER) (test 1.12 mmol/L 1.12-1.27 code = 698) PH, BLOOD (BEAKER) (test code = 7.47 1810) CBC W/PLT COUNT & AUTO [id number] 04:35:30 Test Item Value Reference Range Interpretation [...] PERCENT (BEAKER) (test code = 2801) POCT-GLUCOSE [id number] 20:58:14 Test Item Value Reference Range Interpretation Comments POC-GLUCOSE METER 104 mg/dL 70-110 : TESTED A T [facility] 6720 [facility] (test code = [facility], 1538) 18229: Fiberglass Machine Operator/Techni bart ID = [id number] for Co Pam diop POCT-GLUCOSE [id number] 17:20:16 Test Item Value Reference Range Interpretation Comments POC-GLUCOSE METER 93 mg/dL 70-110 : TESTED A T [facility] 6720 ([facility]) (test code = [facility], 1538) 59634: Fiberglass Machine Operator/Techni bart ID = [id number] for VÍCTOR MURILLO POCT-GLUCOSE [id number] 12:15:47 Test Item Value Reference Range Interpretation Comments POC-GLUCOSE METER 122 mg/dL 70-110 H : TESTED A T [facility] 6720 (BEAKER) (test code = [facility], 1538) 56820: Fiberglass Machine Operator/Techni bart ID = [id number] for GABE LILIBETHVÍCTOR POCT-GLUCOSE [id number] 07:26:33 Test Item Value Reference Range Interpretation Comments POC-GLUCOSE METER 95 mg/dL 70-110 : TESTED A T [facility] 6720 [facility] (test code = [facility], 1538) 35020: 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 COMPARISON: 09/14/2021 IMPRESSION: A right chest tube is again seen without definite evidence for pneumothorax. Mild bilateral lower lung opacities are unchanged. Blunting of the costophrenic angles again seen. The cardiomediastinal silhouette is magnified by technique. Signed: Shannon Cotto MDReport Verified Date/Time: 09/15/2021 07:09:45 Reading Location: [facility] Reading Room Hepatic function [id number] 04:57:12 Test Item Value Reference Range Interpretation Comments Protein, Total (test 5.4 See_Comment L [Autom ated code = 2885-2) message] The system which generated this result transmit dante reference range : 6.0 - 8.3 gm/dL . The reference range was not u sed to interpret th is result as normal/abnormal . Albumin (test code = 2.9 g/dL 3.5-5.0 L 62995-8) Total Bilirubin (test 1.1 mg/dL 0.2-1.2 code = 1975-2) Bilirubin, Direct 0.6 mg/dL 0.1-0.5 H (test code = 1968-7) Alkaline Phosphatase 170 U/L 40-150 H (test code = 6768-6) AST (test code = 26 U/L 5-34 1920-8) ALT (test code = 43 U/L 6-55 1742-6) EMERSON (test code = EMERSON) Fiberglass Machine Operator ID - PIAYA L Lab Interpretation Abnormal (test code = 74686-8) [facility] Center[facility] function [id number] 04:57:12 Test Item Value Reference Range Interpretation Comments Protein, Total (test 5.4 See_Comment L [Autom ated code = 2885-2) message] The system which generated this result transmit dante reference range : 6.0 - 8.3 gm/dL . The reference range was not u sed to interpret th is result as normal/abnormal . Albumin (test code = 2.9 g/dL 3.5-5.0 L 27242-7) Total Bilirubin (test 1.1 mg/dL 0.2-1.2 code = 1975-2) Bilirubin, Direct 0.6 mg/dL 0.1-0.5 H (test code = 1968-7) Alkaline Phosphatase 170 U/L 40-150 H (test code = 6768-6) AST (test code = 26 U/L -34 1920-8) ALT (test code = 43 U/L 55 1742-6) EMERSON (test code = EMERSON) Fiberglass Machine Operator ID Patrick BEYER L Lab Interpretation Abnormal (test code = 09799-5) [facility] CenterHEPATIC FUNCTION [id number] 04:57:12 Test Item Value Reference Range Interpretation [...] (SGOT) (BEAKER) (test code = 26 U/L 34 353) ALT (SGPT) (BEAKER) (test code = 43 U/L 55 347) Fiberglass Machine Operator ID - KAYLEEN [id number] 04:57:11 Test Item Value Reference Range Interpretation Comments MAGNESIUM (BEAKER) (test code = 2.0 mg/dL 1.6-2.6 627) Fiberglass Machine Operator ID - KAYLEEN [id number] 04:57:11 Test Item Value Reference Range Interpretation Comments PHOSPHORUS (BEAKER) (test code = 3.8 mg/dL 2.3-4.7 604) Fiberglass Machine Operator ID - KAYLEEN LBASIC METABOLIC [id number] 04:57:10 Test Item Value Reference Range Interpretation [...] GFR I S NOT APPLICABLE FOR DIALYSIS PATIRENUKA TS. Fiberglass Machine Operator ID - PIAYA [id number] 04:49:45 Test Item Value Reference Range Interpretation Comments PARTIAL THROMBOPLASTIN TIME 44.9 seconds 22.5-36.0 H (BEAKER) (test code = 760) PROTHROMBIN TIME/[id number] 04:48:43 Test Item Value Reference Range Interpretation Comments PROTIME (BEAKER) 16.0 seconds 11.9-14.2 H (test code = 759) INR (BEAKER) (test 1.30 See_Comment [Automat ed message] code = 370) The system uTaP generated this result transmitted ref erence range: <=5.90. The reference range was not used to int erpret this result as normal/abnormal . RECOMMENDED COUMADIN/WARFARIN INR THERAPY RANGESSTANDARD DOSE: 2.0 - 3.0 Includes: PROPHYLAXIS for venous thrombosis, systemic embolization; TREATMENT for venous thrombosis and/or pulmonary embolus.HIGH RISK: Target INR is 2.5-3.5 for patients with mechanical heart valves.CBC W/PLT COUNT & AUTO [id number] 04:46:45 Test Item Value Reference Range Interpretation [...] PERCENT (BEAKER) (test code = 2801) CALCIUM, [id number] 04:42:09 Test Item Value Reference Range Interpretation Comments CALCIUM IONIZED (BEAKER) (test 1.11 mmol/L 1.12-1.27 L code = 698) PH, BLOOD (BEAKER) (test code = 7.48 1810) Prepare Leuko-Red [id number] 23:55:00 Test Item Value Reference Range Interpretation Comments CROSSMATCH (test code = 2264) COMPATIBLE Unit ABO (test code = A Pos 6171615) UNIT NUMBER (test code = [id number] 934-0) Status (test code = 9136300) [facility] Blood Bank Product (test code RED BLOOD CELLS = 2263) PRODUCT CODE (test code = E2963K94 933-2) [facility] [id number] 23:55:00 Test Item Value Reference Range Interpretation Comments CROSSMATCH (test code = 2264) COMPATIBLE Unit ABO (test code = A Pos 6459989) UNIT NUMBER (test code = [id number] 934-0) Status (test code = 6846705) [facility] Blood Bank Product (test code RED BLOOD CELLS = 2263) PRODUCT CODE (test code = [id number] 933-2) [facility] CenterMAGNESIUM2022-01-27 21:30:13 Test Item Value Reference Range Interpretation Comments MAGNESIUM (BEAKER) (test code = 2.0 mg/dL 1.6-2.6 627) Fiberglass Machine Operator ID - PIAYA LPOCT-GLUCOSE [id number] 21:14:24 Test Item Value Reference Range Interpretation Comments POC-GLUCOSE METER 118 mg/dL 70-110 H : [facility] (BEAKER[facility] (test code = [place]AKIR[place], [address]) [address]: Fiberglass Machine Operator/Techni bart ID = [id number] for MORELIA WEBB BASIC METABOLIC [id number] 09:32:00 Test Item Value Reference Range Interpretation [...] S NOT APPLICABLE FOR DIALYSIS PATIEN TS. Fiberglass Machine Operator ID - PIAYA LCBC W/PLT COUNT & AUTO [id number] 09:06:06 Test Item Value Reference Range Interpretation [...] 2D Echo W/Doppler(CW/PW/Color)2021-09-14 08:48:39Ejection FractionSLEH ECHO [facility] W/Doppler(CW/PW/Color)2021-09-14 08:48:39Ejection FractionSLEH [facility]CHO [facility] [id number] 07:35:25 Test Item Value Reference Range Interpretation Comments POC-GLUCOSE METER 91 mg/dL 70-110 : TESTED A T [facility] 6720 (BEAKER) (test code = DOMINIQUE [place], 1538) [address]: Fiberglass Machine Operator/Techni bart ID = [id number] for CINDI DAVALOS BASIC METABOLIC [id number] 06:05:56 Test Item Value Reference Range Interpretation [...] S NOT APPLICABLE FOR DIALYSIS PATIEN TS. Fiberglass Machine Operator ID - PIMARIELA LHEPATIC FUNCTION [id number] 06:05:56 Test Item Value Reference Range Interpretation [...] Specimen moderately (test code = 347) hemolyzed Fiberglass Machine Operator ID - PIMARIELA [id number] 06:05:55 Test Item Value Reference Range Interpretation Comments MAGNESIUM (BEAKER) 2.3 mg/dL 1.6-2.6 Specimen moderately (test code = 627) hemolyzed Fiberglass Machine Operator ID - PIMARIELA [id number] 06:05:55 Test Item Value Reference Range Interpretation Comments PHOSPHORUS (BEAKER) 3.8 mg/dL 2.3-4.7 Specimen moderately (test code = 604) hemolyzed Fiberglass Machine Operator ID - PIAYA [id number] 05:42:58 Test Item Value Reference Range Interpretation Comments PARTIAL THROMBOPLASTIN TIME 39.1 seconds 22.5-36.0 H (BEAKER) (test code = 760) PROTHROMBIN [id number] 05:42:16 Test Item Value Reference Range Interpretation Comments PROTIME (BEAKER) 14.8 seconds 11.9-14.2 H (test code = 759) INR (BEAKER) (test 1.18 See_Comment [Automat ed message] code = 370) The system uTaP generated this result transmitted ref erence range: <=5.90. The reference range was not used to int erpret this result as normal/abnormal . RECOMMENDED COUMADIN/WARFARIN INR THERAPY RANGESSTANDARD DOSE: 2.0 - 3.0 Includes: PROPHYLAXIS for venous thrombosis, systemic embolization; TREATMENT for venous thrombosis and/or pulmonary embolus.HIGH RISK: Target INR is 2.5-3.5 for patients with mechanical heart valves.CALCIUM, [id number] 05:36:36 Test Item Value Reference Range Interpretation Comments CALCIUM IONIZED (BEAKER) (test 1.07 mmol/L 1.12-1.27 L code = 698) PH, BLOOD (BEAKER) (test code = 7.42 1810) RAD, CHEST, 1 VIEW, NON [id number] 02:39:00while patient is intubated or has chest tubes.Reason for exam:->Status post CV SurgeryShould thisbe performed at the bedside?->Yes [facility] BARRYGAILNUZHATSILVERSanto BACH : 1945 Sex: MFINAL REPORT RAD, CHEST, 1 VIEW, NON DEPT INDICATION: Status post CV Surgery COMPARISON: Prior day's exam FINDINGS: Portable frontal view of the chest. IMPRESSION: Support Lines: Stable right chest tube. Lungs and pleura: Unchanged bibasilar airspace and pleural opacities. No pneumothorax. Heart and mediastinum: Stable contours. Additional findings: None. Signed: Halley Osullivaneport Verified Date/Time: 09/14/2021 02:39:11 POCT-GLUCOSE [id number] 22:16:46 Test Item Value Reference Range Interpretation Comments POC-GLUCOSE METER 116 mg/dL 70-110 H : TESTED A T [facility] 6720 (BEAKER) (test code = BRIJESHSHAKIRA [facility], 1538) [address]: Fiberglass Machine Operator/Techni bart ID = [id number] for VISHAL GAINES BASIC METABOLIC [id number] 17:49:41 Test Item Value Reference Range Interpretation [...] S NOT APPLICABLE FOR DIALYSIS PATIEN TS. Fiberglass Machine Operator ID - JACQUELINE [id number] 17:49:41 Test Item Value Reference Range Interpretation Comments MAGNESIUM (BEAKER) (test code = 2.2 mg/dL 1.6-2.6 627) Fiberglass Machine Operator ID - JACQUELINE CPOCT-GLUCOSE [id number] 17:28:04 Test Item Value Reference Range Interpretation Comments POC-GLUCOSE METER 153 mg/dL 70-110 H : TESTED A T [facility] 6720 (BEAKER) (test code MARILYN [facility], = 1538) [address]: Fiberglass Machine Operator/Techni bart ID = [id number] for Ritchie manuel, Silvana POCT-GLUCOSE [id number] 11:25:51 Test Item Value Reference Range Interpretation Comments POC-GLUCOSE METER 122 mg/dL 70-110 H : TESTED A T [facility] 6720 (BEAKER) (test code = DOMINIQUE [facility], 1538) [address]: Fiberglass Machine Operator/Techni bart ID = [id number] for PH INISEE, ABDOULAYE [id number] 11:03:29 Test Item Value Reference Range Interpretation Comments MAGNESIUM (BEAKER) (test code = 2.0 mg/dL 1.6-2.6 627) Fiberglass Machine Operator ID - AUG CBASIC METABOLIC [id number] 11:03:28 Test Item Value Reference Range Interpretation [...] S NOT APPLICABLE FOR DIALYSIS PATIEN TS. Fiberglass Machine Operator ID - AUG CVenous doppler arm, [id number] 10:17:08Ejection FractionSLEH ECHO HEARTLAB [facility]CKESS[facility] CenterVenous do[facility], [id number] 10:17:08Ejection FractionSLEH ECHO HEARTLAB MKCKESSON CPACSCHI [facility], [id number] 09:38:00 Test Item Value Reference Range Interpretation Comments ABO/RH AUTOMATED (BEAKER) (test A POSITIVE code = 2260) Ab Scrn (test code = 890-4) NEGATIVE [facility] Center[facility], [id number] 09:38:00 Test Item Value Reference Range Interpretation Comments ABO/RH AUTOMATED (BEAKER) (test A POSITIVE code = 2260) Ab Scrn (test code = 890-4) NEGATIVE [facility] CenterRAD, [facility]ST, 1 VIEW, NON [id number] 08:40:00while patient is intubated or has chest tubes.Reason for exam:->Status post CV SurgeryShould thisbe performed at the bedside?->Yes [facility] 1945 Sex: MFINAL [...] MDReport Verified Date/Time: 09/13/2021 08:40:29 Reading Location: [facility] Reading Room POCT-GLUCOSE [id number] 08:01:34 Test Item Value Reference Range Interpretation Comments POC-GLUCOSE METER 89 mg/dL 70-110 : Notified RN/MD: TESTED (BEAKER) (test code = AT [facility] [address] 5361) [place], [address]: Fiberglass Machine Operator/Techni bart ID = [id number] for ABDOULAYE KATZ PROTHROMBIN [id number] 04:58:25 Test Item Value Reference Range Interpretation Comments PROTIME (BEAKER) 15.6 seconds 11.9-14.2 H (test code = 759) INR (BEAKER) (test 1.26 See_Comment [Automat ed message] code = 370) The system uTaP generated this result transmitted ref erence range: <=5.90. The reference range was not used to int erpret this result as normal/abnormal . RECOMMENDED COUMADIN/WARFARIN INR THERAPY RANGESSTANDARD DOSE: 2.0 - 3.0 Includes: PROPHYLAXIS for venous thrombosis, systemic embolization; TREATMENT for venous thrombosis and/or pulmonary embolus.HIGH RISK: Target INR is 2.5-3.5 for patients with mechanical heart valves.CBC W/PLT COUNT & AUTO [id number] 03:26:57 Test Item Value Reference Range Interpretation [...] (BEAKER) (test code = 2801) BASIC METABOLIC [id number] 02:43:59 Test Item Value Reference Range Interpretation [...] is on LVAD, which may hemolyze the blood.Fiberglass Machine Operator ID - KAYLEEN LHEPATIC FUNCTION [id number] 02:43:59 Test Item Value Reference Range Interpretation [...] Specimen moderately (test code = 347) hemolyzed Fiberglass Machine Operator ID - KAYLEEN [id number] 02:43:58 Test Item Value Reference Range Interpretation Comments PHOSPHORUS (BEAKER) 3.1 mg/dL 2.3-4.7 Specimen moderately (test code = 604) hemolyzed Fiberglass Machine Operator ID - KAYLEEN [id number] 02:43:57 Test Item Value Reference Range Interpretation Comments MAGNESIUM (BEAKER) 2.0 mg/dL 1.6-2.6 Specimen moderately (test code = 627) hemolyzed Fiberglass Machine Operator ID - KAYLEEN LOperator ID - KAYLEEN [id number] 02:41:16 Test Item Value Reference Range Interpretation Comments PARTIAL THROMBOPLASTIN TIME 44.3 seconds 22.5-36.0 H (BEAKER) (test code = 760) CALCIUM, [id number] 02:05:55 Test Item Value Reference Range Interpretation Comments CALCIUM IONIZED (BEAKER) (test 1.10 mmol/L 1.12-1.27 L code = 698) PH, BLOOD (BEAKER) (test code = 7.43 1810) Blood gas, [id number] 02:04:48 Test Item Value Reference Range Interpretation Comments pH, Declan (test code = 7.43 7.32-7.42 H 2746-6) pCO2, Declan (test code = 38 See_Comment L [Aut omated message] 755) The system uTaP generated this result transmit dante reference range : 41 - 51 mm Hg. The reference range was not used to interpret this result as normal/abnormal . pO2, Declan (test code = 40 See_Comment [Auto mated message] 2705-2) The system uTaP generated this result transmit dante reference range : 25 - 40 mm Hg. The reference range was not used to interpret this result as normal/abnormal . O2 Sat, Declan (test code 76.6 % 40.0-70.0 H = 2711-0) HCO3, Declan (test code = 25 mmol/L 21-29 44987-0) Base Excess, Declan (test 0.9 mmol/L -2.0-3.0 code = 1927-3) Patient Temperature 37.0 (test code = 8310-5) FIO2 (test code = 1819) 21 Lab Interpretation Abnormal (test code = 72199-6) [facility] CenterBlood gas, [id number] 02:04:48 Test Item Value Reference Range Interpretation Comments pH, Declan (test code = 7.43 7.32-7.42 H 2746-6) pCO2, Declan (test code = 38 See_Comment L [Aut omated message] 755) The system uTaP generated this result transmit dante reference range : 41 - 51 mm Hg. The reference range was not used to interpret this result as normal/abnormal . pO2, Declan (test code = 40 See_Comment [Auto mated message] 2705-2) The system uTaP generated this result transmit dante reference range : 25 - 40 mm Hg. The reference range was not used to interpret this result as normal/abnormal . O2 Sat, Declan (test code 76.6 % 40.0-70.0 H = 2711-0) HCO3, Declan (test code = 25 mmol/L 21-29 63594-6) Base Excess, Declan (test 0.9 mmol/L -2.0-3.0 code = 1927-3) Patient Temperature 37.0 (test code = 8310-5) FIO2 (test code = 1819) 21 Lab Interpretation Abnormal (test code = 02465-8) [facility] CenterBLOOD GAS, [id number] 02:04:48 Test Item Value Reference Range Interpretation [...] (BEAKER) (test code = 1819) 21.0 POCT-GLUCOSE [id number] 22:07:43 Test Item Value Reference Range Interpretation Comments POC-GLUCOSE METER 105 mg/dL 70-110 : TESTED A T [facility] 6720 (BRAXTNO) (test code = DOMINIQUE [facility], 1538) [address]: Fiberglass Machine Operator/Techni bart ID = [id number] for GO DAGO VISHAL POCT-GLUCOSE [id number] 16:18:37 Test Item Value Reference Range Interpretation Comments POC-GLUCOSE METER 118 mg/dL 70-110 H : Notified RN/MD: (BRAXTON) (test code = TESTED AT [facility] 6720 1538) [facility], [address]: Fiberglass Machine Operator/Techni bart ID = [id number] for PH ABDOULAYE ROJAS Tissue [id number] 14:59:34 Test Item Value Reference Range Interpretation Comments Case Report (test code Surgical Pathology = 104) Report Case: [id number] Authorizing Provider: Colby Bui, Collected: 09/07/2021 12:07 PM Ordering Location: [facility] Received: 09/07/2021 03:40 PM PERIOPERATIVE SERVICES Pathologist: Ciro Diamond MD Specimen: Mitral Valve, MITRAL VALVE DIAGNOSIS (test code = [id number] 3220) uZzEwMzNcZnRuYmpcdWMxIH tccnRmMVxlcGljOTYwMVxhb lIjJDHwcJKtE8ZdswcnEZvc ZY0bUA7mlDeblVFrdZGlIQV pYbRgh2gma582uYBym8ruDF LXsoeqzHe8eTizI95cq2Y7J zslR83muKMqFPS9JGHjAIZe mSDdBXVrUCR6DFXlnBAdS7b aKHGkUM3hskmfZBvaUQayZP WzlIU6ESJzxLAnF5VoBVMkZ IgmEPQiyeb3IpIcHq6saSCo eTcyMFxwYXJkXHBsYWluXGZ zMjAgTUlUUkFMIFZBTFZFLC HMYSOMH8kJRiusmSMhWWXJH TQAXROASPXMR1TLSZSZJOXS YCBYV3IVQIOJBFsHIQMTMMC WG5MAKWYUXLDKU6FEXOZBVN qVFFESK1VPPE9LOWNoeu41G PV7MvXem0P7OWH9YILdMGTn r1rmPXYjrQOfPrOtAaCiHcC jHlpfbWYyNIFfHjIic0nqn4 49nQLgd3xjCKVmZvD0bARvO INjuQAmG573XIAbWNifv9kp d6FbAASglUFkj0K9CCGRnzp fsIx5qQujV53nn2A8FpffU5 asYXOvAKJaA8RjKN1nCQOhW lt9ZWP2OSY5ZTNfAQDkL2Ee NS0rGPPtbAYjFAf1o3hidRw lFIXpYIL9g1jqRXtfguYqCV 0swi4bzYh2v9lkwnFcHEHjR IPlcXVGVXIdA6EnsSwqOs7w pDp7yIplRmytFXQ5Fcx6OB7 atx06myr7bPoaFUGfnxlwVa G2TJzeHUKjnjtkPNm5IMcmZ UMbuXB7RVEwnWTdP9LxDLGw ER6luvx8CRM1YGlyHCGsVhL 0AZHgoIDrZOHsgJtvAEtvc4 12IRC5EaAsNU1wY9Omy2B0v N3igVOtRFMnwYMgEpBhZTZs br5zaNXtHOqii7MpETT8noF 4uNIybPJePLOrWxA5LUpnPB 9ajn13CDPaAZJ7fe8eeEWus GxsqqOyyZRzXNszM5DaQKJg i742LWVjV8DiTXSys4N5aeB sZnUeHGGcqFZ1hnO4BAMlGB 9ftouyr5jvVJeeAEtyFNLof eL5bwY4KRAwkVMtC0ObiC0t QMHgYJ1ibxans0zmION8WBl kZONwJPS1TaOzEHRef8Acko x1BtXhh2LymPLxRBraC10zu 028CLMwrqWeK8dpkQOfspco mJQfrgfsUWsfszB6MIVgHUa kdoyeBGUwBCmqF6xoCkBcYV VuwMiuELblt6HfQVMmEQImM rDzfGPaQKEnGoh9SNRgmUJg CTWrDkMeJ9ntvowhFnKVSSE gz1lnO6ppfYKUlFOxW5YhLT hvbmUgTGluZTogNzEzLTYxN O97AOZ3CMRmwj43 CPT Code(s) (test code s4mtnUWnFBIibQH1VcEdKHC = 3359) qx8unb9CeeXQthEZmQGsbrG NekpIczu49mPM1yN05IF2zW GHyShT5HQGexuG2Npy2YTJp XOFquLQzS237p7lgo3lnzhD deJZ5kVfeVEHnmfxtPvL3FI vhGFSaqxpoVUz9JRtmKQTjz JW9JXExhYPyW4UfHXNwHS1z rzg6RCG9LPgzSYKeFkW8TLW rxVPdLSVbrWgdUTgdd624KP B5UqJvBINhrnAbeCgjmK2nL fIeDPI2YFVeTUriJVT1 CLINICAL HISTORY (test j6rouSIaFFAusDC2YrAbIXN code = 3356) ba2bsh0OcjOHksSBuALciiQ VqpuDwjg02aIY4aE86NH6lM PIjDnW2JECyhzX7Ags7EPNs FCYpoJUsQ742v3zve0ipdaC goLL4zHruXMQgtdhdRoI0BX kkRDWsrftnJSu3BVlfGPIkh HQ3RRIkrFHeH0CwHGNfZF5x njb6MND3ATzvCFApUrZ1DFV ckXSzVSQohWbpTLhze054BO F1LiZaLEZmvtQylAkmrS6hZ nMyMCBBdHJpYWwgZmlicmls yUO9wI3wKFPmrMZrBGivyiF tijSbiM4wiSShxJAsHR6jqP xwYXJ9 SPECIMEN SOURCE (test l3nskHNcWHLaoCJ2RtTtZQF code = 3377) wh0jju1GlbZUbtPCyYNqloM SfumSvoq55dPP9wY50VS3uO NPpDsU2WXYbfzI2Nbw4KYTp OAJkbBKaR140q4tkc4gqauZ ptNK8oYxuQEUcslwtSfA5QS pyAPYvvhdfFDv6EUjvSVJgt IM9DKEbxGCvI5HdEXIgHO6n ahn8ILX1BGrgAITjWjX0WPO lmDEdYMLmgUdiTCuyn490MG V8UwBoQWQsamAitMjpoC5gB nMyMCBNaXRyYWwgdmFsdmVc cGFyfQ== GROSS DESCRIPTION n6ydvDFeTIWbsODfXqHzRTN (test code = 3366) kSMUit0iaHIMypAIkBlOqEr NcZnRuYmpcdWMxXGRlZmYwe 5cnk195nDIhg9foOHXrJqU4 oOIvCIIcqOCrS640w1qxn4x tpaWfeRJ3DRCxHJG1SHhkdy MonyG9PWawjWOfHkG7QQawl aFtJVgvoeRioeEhTsq1NUOz O156XPK5mPhvr0jaHMF2SWV jULXbQrHkFu2rmXRsK423KJ XjDPDBDRDqwOy2LUIlzuYxm iFnlDVRw146S114w0cdQXVg oqTmtHcLnrdwt9zlV083SQT hcGVydzEyMjQwXHBhcGVyaD N1TWDcJT5ynfpeGiCdHA5li elfFcNzVV7bcxb4CjAjTU2i cmdiNzIwXGhlYWRlcnkwXGZ jn7MrmhmpNN7mS8Tis1W4mE 9maXRcZGVmdGFiNzIwXGZvc b6tyKMqEDgoo4ZjHWT2soG1 sHTowKLhVZRxJO72Zwswb3V hOztvPOY1IPSclpWie6Yit6 xgUgHxnyLuH5wqK6CiRQDvH HHeBQEcXfBbyqZwx7Hei2Yl qNYfcFt7h0viRZFuPTJhhVa de8zkHNP0RWVfN7A8pMKgu4 hcTEtlUUZvuTL8xvtgSWuuZ IRjmuP2gktoOQdtDTMaiFJ0 vtwiFAjrXKNlRaK4kjqhJJq wBWPiRYT3QMray082ADB9YH xzYmtwYWdlXHBnbmNvbnRcc GduZGVjXHBsYWluXHBsYWlu XGYwXGZzMjRccWxccGxhaW5 yItAvTjXaRRylWH1mCJSkB9 wtwGNtNLAyBXApS7jtNsTbk N2ueMrhZSmfagWmVPTiWVWw T5TtmeVwKBPpIUYaUTirMyF aCUDcs8a9pOW5xPZvlAT7aU YdmJuxOpNaAF5dbBWzSI1vZ JxfHPxafuHga6FwSA58eUMc wvDyhmQwEy9egLAnwRZ7YAg 2ZSIgaXMgYSAzLjcgeCAzLj PrqZUjUhAsE77nnEPeAQ8qu HnntqTfg1K6dJ1cCP2uSEza gNvxrm39bMr9VHrsn9asD6s 0jEhsgSnoJ1ubggYoKUWmyR Z6bXVaJVHbg4P2CP1uYIZjF DDwHOplAMEnl31vpXywEZ5a jC91GX4xTDE7jIJsmUWzITY 1rAtnx0NbBRSlE5nscuQlMX G5MY0pzA4fZHAwPDOFhNPwq 2NaJ7ukDW4rdVWso8AlyCAw mHnpn1GdfEquepMzNPFnPCM anzTrht0enzNnXMAro62fOY LaPKysBV34aHWqSDOpIUCLR XXeEDAjouTpjXc8SKItOYH6 yX5shoOuctBtm4MoqFc9pBQ kIGluIEExLlxwYXJccGFyIE LxCClpRVZxC9JpgX5rTI1BV mfrOTZmTJQPM7QlM04cwXHw fQ== MICROSCOPIC h8ndhDIjSBAnnJG9NhXoXBC DESCRIPTION (test code db5ojr0XedMIcnYAnXCbieO = 3371) NsqoAaqe85gMN0nO20MH5bJ HNsPlU4JRLtabO2Cxb6LDGc FUXrgSAeN722y9zry8hqsbM ymSD8cBzrSKSjbewvTgK8WK doCYXtvtybFSq0BRulJSBjg KB6KQSrrJTqK0VwOFFfIM7q mwy3AEK1RUkwCAJeDdA8GRI waPJbTUXuaPemXElee508MN Y6PhHaZUFirjDvoXixdS2uU nUnYRFTRHBau1BcAXQhDTIw cn0= Gross assessment was [facility] performed at ([facility], code = 2777) Department of Pathology, [address] [place], [place] [id number], Technical component [facility] was performed at ([facility], code = 2778) Department of Pathology, [address] [place] [address], Professional component [facility] was performed at ([facility], code = 2779) Department of Pathology, [address] [place] [address], [facility] CenterTissue [id number] 14:59:34 Test Item Value Reference Range Interpretation Comments Case Report (test code Surgical Pathology = 104) Report Case: [id number] Authorizing Provider: Colby Bui, Collected: 09/07/2021 12:07 PM Ordering Location: [facility] Received: 09/07/2021 03:40 PM PERIOPERATIVE SERVICES Pathologist: Ciro Diamond MD Specimen: Mitral Valve, MITRAL VALVE DIAGNOSIS (test code = x2zvbQYuFYIsz3kiOEOuyGX 3220) uZzEwMzNcZnRuYmpcdWMxIH tccnRmMVxlcGljOTYwMVxhb vVpHEVipCZfA6SqchncJFbv XF9fJR3erXkdkLFbrJTbTPK oYqAtr0tnn082jYSdd5bvFB YUkifdbUz5sXcbO28uz1H4B dnlQ95jsARqQCE8IFYsKUYd fUNbTOBwSOB2NOHnlCJiU4n yHUAuRD4yaqczRZvxPJtuUC SigKH6REZzeJMsT3LaOUZtY VcrEUAkycn5IdHtXb4azSAo eTcyMFxwYXJkXHBsYWluXGZ zMjAgTUlUUkFMIFZBTFZFLC WGKCJJA3hJLwyntDXeYKBKX PYVBAFRBSQTU5KYLVAHWGRN BEFKE8ATWJMNEKuGDUQPOSG KQ6ZZWWYXFVAFH9HEOGITGL qFKVCJZ9KJYW5NUJObja66N VN9YjMdy9D5GEW8LSOeZEKm q0ocDJSpeDXgOmXxDpDeQbX xPxphjXXlPLEfYqUwr8csn9 93yILoz7srRMExOrW5hZPlW SHxvXIdV891BBYzZMlfu5mi p6QoZCRbiOQah9L5DTAAynm ssUx7fGlfC87js4F8FzozX7 fyQPIdMDGaV7KbZF8gGWAgK ke9BYM9NGM5URLmJGZjG8Jp FM0sSLStaAMqTTb2z0heqNv pGAKaSMB0j8plPFagnyIpFT 0ysv8wnSi7w9hmmwShBNHsY PWfuRNLMZOuL5LfcLklIs6z sEc2yAqzBpyhTMW6Wlv5FQ9 waa50dcf8oAoyTFXaqjadMp X2JCrcMANpjtyuQBj7ZSjhO KAdfRM8VUNizAJjN4RlEECo JD3vayr2EKW4YUkaOEXcJbV 1KORxaOMjMMUbfOxkAFvwg1 95PCP3DkDiRZ5xQ2Pal8N3j V9ucHVvRTJphYOiAcPbLRBg wd6ouLAmBGkvw9WdIDB5vzM 5gTVbtQOeWTHyCuH9FLnsWB 8ugb64GBWdUYT3mr3bmPNuk QgpncPvnFErOOlvB7AeLOFq h809DRXkY8LpWCWnk7W3grR eJsPmKDYxmLY2ygU6KXIvCS 5eoeixo9hhSAgbSRuqYVBqz aN7qpT7MVZhdJAeU4FhtF9t GANiIP9nqnvpj0gkVIM9REz jOEOfRZD3YgTdHPNnd9Jzem t3CrNxa5CdnBLkYYxcR22jv 277XDDfdlSyS3xbnNAzpubu wORwwhgwIUadiyW7TZOsKFc ulbsiXQYiTUgwX0riPdFhCF MknBawURlqa2WlYCTbKYAvX nFhiSVfOXFsNfs0JYHrxJFg RVGzQyXgR6hbrdffPfBCCKU lt2eoZ3xjuKFLdTTkK2KfZY hvbmUgTGluZTogNzEzLTYxN K66QQD7RVRptc60 CPT Code(s) (test code o0ccqIQvREIapVV4KpPhLSH = 3355) no8kzj1LmuGJefXMdQCwslL EvdrPwdz40nHS4oX87VF0xA PAkWqE0OXOpjvD4Wqz2YHSd SJUzdETaL860j8ppf5gdrnR nyRB7sSmuZXCwzsscLjB5NA rrDEDwslxhQUp0XNgpJKLao HX4ZGAufJZxQ0BoFSUmQB4h vqr3KIL7BEnhQRPgIuL8XHX awPJmWZCgzDnvRYpch510HD M0JiAmBKDqvwAhlXqwiW1cR mViYDI2EZHdCUxtARE5 CLINICAL HISTORY (test t7sqpOEkMEFtqJT7ByYzCUD code = 3356) jc5nfi5BdvPQebMCoBYjfmA RybkQdpo50aOR0kP43II2kP ZJnRlM5FYDqdnX0Nou1RHMx FTSwrFCaV275b2gqo5aefzE hmOO0lCbnUHZqubwpJcF3FP exWUPhkqriMEf4ZSbaNVGuf BC0EGAppKUsK7BdMKPdPV1f ryl6UUI2WCuoWJKxXzI3CNB hbTKeEPHhhOvrQGmyh250FB E4OuDpMKOphpHlsFifpH7xF nMyMCBBdHJpYWwgZmlicmls mNH5bL9fEBFmeLMtZMnwotV ahjKhdS4vgCTnyEIlNU7wcU xwYXJ9 SPECIMEN SOURCE (test k7ednWDlGSWnpWH8KtVpTKC code = 3377) kw7yjf9PxdJBefPPhQMojqV DifqNxir14rJX4dT83KC8qN JDbLfJ9CVWtpeQ1Eib4NNYq NRVxkURnP832e5gdv5svpbQ arGQ0zXonAMIcnytvEfB7WR hfSAHekehpJJi1OSgeWLCap AP9ZBFjkCVtI6XpZSXaMC9q xbh1DAE6PVltSEEsIrQ6PEA qrUJtZPWrlCjgOFfkq415QJ Y6CgLiPMNarkBihSaikH6mC nMyMCBNaXRyYWwgdmFsdmVc cGFyfQ== GROSS DESCRIPTION q4nnmSLdNQCytAPkDbMgSDB (test code = 3366) hXMOod1gkUWNjdXWqFqMzKi NcZnRuYmpcdWMxXGRlZmYwe 8hyj311hWUth0izKAJiKkX5 xWQtQJTjuTKwG787n2wgo4h lrnSxnSP3DWHhVOX9MHuspb IdpuP4IHvunICtTdI0BAxgb dHiYUhrwpFfgmFoKxn3MUDb W655PPQ6wBlwa6izBCK2UAT fYVWtGsIaZa5poTTxC118LV PvMJGYOFWyfOm9HEVyiaYtu dGgpBCNp113P200d8slDOFd joMlgZlBcqqlx1xmZ721LES hcGVydzEyMjQwXHBhcGVyaD B4WEVnQU4xeivrWxAmYH4sb mxfSdTdYA7kohz9YaOkDT2q cmdiNzIwXGhlYWRlcnkwXGZ mw6AuclkmEB1pL6Lfc3K7hE 9maXRcZGVmdGFiNzIwXGZvc l2luESxKYogd5JdLMN5rrS1 wSJzuFGaQCRhBO39Hhjzi6I rGbkiZNS9IXJqzkLeg3Gmt2 acVbMyuhPpZ3meY6XeGPPfR PLhDPZhJjMpjwIpc1Dhv9Rc oHViwGx9r7xvAFQiCETkyRr mj0rbVWB1GDKuH0V6fHRze6 aaZIqlCBUphPP0aqqsLIccA BRekkJ7bamdJFrrSUZwkCG9 bkkoMRfeXQXmNmR9peguPWm dGRHyTUG0ROmxb289KLW3FQ xzYmtwYWdlXHBnbmNvbnRcc GduZGVjXHBsYWluXHBsYWlu XGYwXGZzMjRccWxccGxhaW5 gUxOmXjXuGRzoWV3aKNYhV4 akgUZcQPJjLENpS5uhXlHgc O8iwChsSAfjukViXLSvDXEh K9XcukXmCKQvECLrLHmeRuN fYEFeq4p2xJW9kVKysSX0fH RvkXacGvGcUQ3vaEKrWB3oD DmhYTsovyRyd9YcIV06hHAa onGiglXmVw4vkJUzdDE6BHs 2ZSIgaXMgYSAzLjcgeCAzLj WmnGLqXgIiC36xeKElAG7ae JoieqTln2I0xU1sTQ4hJZuf bEduyw18vGm3QQhru3zjZ3d 5nIjrhBxrQ8aytrPiWJGkhU D3hXHsJCAwo0P1WC4kZQYwZ FInUGptHFUqn05ptWmwMZ1h lM18JA1gUYE1fLQybZDlGBT 5gLwch3GtMZVpX0wqbkYzLS K3ZU7wbZ1tZJVsJRSMkVIxk 2IiN7goID9qxMAlr2ZpmYTs kXzgj9GjdZdqlvPzIAWpOCQ uiyWhrp7lfrJxHXStv36xXE KdBGwmOJ64cFVhDHEhRVELD XLsBQNzrqMnqFa8LRHjBUQ6 xX4vwdTvcmBct6UbnFb6lYT kIGluIEExLlxwYXJccGFyIE AfBFbtOZVkY6LpuV8eKS7GS tgzSJMmCZFHC5QoP31dfNSp fQ== MICROSCOPIC c1istCGwKGSidTD3YdEeYPB DESCRIPTION (test code vl4spb9YclDFroYLnBSamnT = 3371) IlgrRccq19dGX3oB12YJ2sM XZnSnK6KOOzfqM7Grh2JZOp EZVysQOrF590f6vmw4pmcbT yqRY0wLzaTSArmcppYdR5JS hjRXSktoffXBj5WXbmGZMcd UV4BYCokQKkJ9PfKCSsAL0a tth6ZEB4AJkdCGIhLhR9QYH nbMBuQSGmcXfoLEbnu974EK F7HjUcIABwkaIcoBarqV2uZ xKuDATTTGHun1HqWCWrXSRo cn0= Gross assessment was [facility] performed at ([facility], code = 2777) Department of Pathology, [address] [place] [id number], Technical component [facility] was performed at ([facility], code = 2778) Department of Pathology, [address] [place] [id number], Professional component [facility] was performed at ([facility], code = 2779) Department of Pathology, [address] [place] [id number], [facility] [id number] 14:59:34Surgical Pathology Report Case: [id number] Authorizing Provider: Colby Bui, Collected: 09/07/2021 12:07 PM Ordering Location: [facility] Received: 09/07/2021 03:40 PM PERIOPERATIVE SERVICES Pathologist: Ciro Diamond MD Specimen: Mitral Valve, MITRAL VALVE MITRAL VALVE, EXCISION:VALVULAR TISSUE WITH DEGENERATIVE CHANGES AND FOCAL CALCIFICATION Signing Pathologist DirectPhone Line: [phone] signed by Ciro Diamond MD on 09/12/2021 at 2:59 [id number] fibrillation, mitral valve insufficiencyMitral valveA. Received fresh labeled with the patient's name, medical record number and "mitral valve" is a 3.7 x 3.4 x 0.1 cm triangular portion of yellow-white, slightly thickened valvular tissue. There is a small amount of attached, thickened chordae tendineae. The specimen is serially sectioned and no gross lesion are identified. Network Support Technician sections are submitted in A1.SASHA Graf, URSULA (ASCP)cmPerformed.[facility], Department of Pathology, [address] [place] [id number], [facility], Department of Pathology, [address] [place] [phone], [facility], Department of Pathology, [address] [place] [address], UXZGJAX, [id number] 13:07:17 Test Item Value Reference Range Interpretation Comments CALCIUM IONIZED (BEAKER) (test 1.12 mmol/L 1.12-1.27 code = 698) PH, BLOOD (BEAKER) (test code = 7.49 1810) [id number] 13:05:22 Test Item Value Reference Range Interpretation Comments Potassium (test code = 4.1 meq/L 3.5-5.1 Speci men 2823-3) slightly hemolyzed EMERSON (test code = EMERSON) Fiberglass Machine Operator ID - MARZENA M Lab Interpretation Normal (test code = 93883-8) [facility] Center[facility]assium[facility] 13:05:22 Test Item Value Reference Range Interpretation Comments Potassium (test code = 4.1 meq/L 3.5-5.1 Speci men 2823-3) slightly hemolyzed EMERSON (test code = EMERSON) Fiberglass Machine Operator ID - MARZENA M Lab Interpretation Normal (test code = 06851-3) [facility] Center[facility]UM2022-[facility] 13:05:22 Test Item Value Reference Range Interpretation Comments POTASSIUM (BEAKER) 4.1 meq/L 3.5-5.1 Specimen slightly (test code = 379) hemolyzed Fiberglass Machine Operator ID - MARZENA [id number] 13:05:21 Test Item Value Reference Range Interpretation Comments MAGNESIUM (BEAKER) 2.2 mg/dL 1.6-2.6 Specimen slightly (test code = 627) hemolyzed Fiberglass Machine Operator ID - MARZENA [id number] 13:05:21 Test Item Value Reference Range Interpretation Comments PHOSPHORUS (BEAKER) 2.6 mg/dL 2.3-4.7 Specimen slightly (test code = 604) hemolyzed Fiberglass Machine Operator ID - MARZENA MPOCT-GLUCOSE [id number] 11:29:26 Test Item Value Reference Range Interpretation Comments POC-GLUCOSE METER 126 mg/dL 70-110 H : Notified RN/MD: (BRAXTON) (test code = TESTED AT [facility] 6939 2035) [facility], [address]: Fiberglass Machine Operator/Techni bart ID = [id number] for PH INISEE, ABDOULAYE POCT-GLUCOSE [id number] 08:03:15 Test Item Value Reference Range Interpretation Comments POC-GLUCOSE METER 98 mg/dL 70-110 : Notified RN/MD: TESTED (BRAXTON) (test code = AT [facility] [address] 1538) [facility], [address]: Fiberglass Machine Operator/Techni bart ID = [id number] for ABDOULAYE KATZ Venous doppler arm, [id number] 06:52:54Ejection FractionSLEH ECHO [facility]LAB [facility], [id number] 06:52:54Ejection FractionSLEH ECHO [facility], 1 VIEW, NON [id number] 06:05:00while patient is intubated or has chest tubes.Reason for exam:->Status post CV SurgeryShould thisbe performed at the bedside?->Yes [facility] 1945 Sex: MFINAL [...] contours. Addition al findings: None. Signed: Halley [facility]ull[facility] Verified Date/Time: 09/12/2021 06:05:44 TIC FUNCTION [id number] 04:15:05 Test Item Value Reference Range Interpretation [...] (test code = 46 U/L 6-55 347) Fiberglass Machine Operator ID - MARZENA [id number] 04:15:04 Test Item Value Reference Range Interpretation Comments MAGNESIUM (BEAKER) (test code = 2.4 mg/dL 1.6-2.6 627) Fiberglass Machine Operator ID - MARZENA [id number] 04:15:04 Test Item Value Reference Range Interpretation Comments PHOSPHORUS (BEAKER) (test code = 3.3 mg/dL 2.3-4.7 604) Fiberglass Machine Operator ID - MARZENA MBASIC METABOLIC [id number] 04:15:03 Test Item Value Reference Range Interpretation [...] I S NOT APPLICABLE FOR DIALYSIS PATIEN LANDEN. Fiberglass Machine Operator ID - MARZENA MPT/[id number] 04:11:05 Test Item Value Reference Interpretation Comments Range Protime (test code = 15.8 See_Comment H [Autom ated 5902-2) message] The system which generated this result transmitted reference range : 11.9 - 14.2 seconds. The reference range was not used to interpret this result as normal/abnormal . INR (test code = 1.28 See_Comment [Automated 6301-6) message] The system which generated this result transmitted reference range : <=5.90. The reference range was not used to interpret this result as normal/abnormal . PTT (test code = 47.6 See_Comment H [Automated 44492-7) message] The system which generated this result [...] valves. Lab Interpretation Abnormal (test code = 58786-7) [id number] 04:11:05 Test Item Value Reference Interpretation Comments Range Protime (test code = 15.8 See_Comment H [Autom ated 5902-2) message] The system which generated this result transmitted reference range : 11.9 - 14.2 seconds. The reference range was not used to interpret this result as normal/abnormal . INR (test code = 1.28 See_Comment [Automated 6301-6) message] The system which generated this result transmitted reference range : <=5.90. The reference range was not used to interpret this result as normal/abnormal . PTT (test code = 47.6 See_Comment H [Automated 24699-4) message] The system which generated this result [...] valves. Lab Interpretation Abnormal (test code = 90072-3) [facility] CenterPT/[id number] 04:11:05 Test Item Value Reference Range Interpretation [...] mechanical heart valves.CBC W/PLT COUNT & AUTO [id number] 04:06:36 Test Item Value Reference Range Interpretation [...] (BEAKER) (test code = 2801) Blood gas, [id number] 04:00:34 Test Item Value Reference Range Interpretation Comments pH, Arterial (test code 7.47 7.35-7.45 H = 2744-1) pCO2, Arterial (test 33 See_Comment L [Autom ated message] code = 2019-8) The system 28msec generated this result transmit dante reference range : 35 - 45 mm Hg. The reference range was not used to interpret this result as normal/abnormal . pO2, Arterial (test 144 See_Comment H [Automa dante message] code = 2703-7) The system 28msec generated this result transmit dante reference range [...] 21 Lab Interpretation Abnormal (test code = 39366-9) [facility] CenterBlood [facility], [id number] 04:00:34 Test Item Value Reference Range Interpretation Comments pH, Arterial (test code 7.47 7.35-7.45 H = 2744-1) pCO2, Arterial (test 33 See_Comment L [Autom ated message] code = 2019-8) The system 28msec generated this result transmit dante reference range : 35 - 45 mm Hg. The reference range was not used to interpret this result as normal/abnormal . pO2, Arterial (test 144 See_Comment H [Automa dante message] code = 2703-7) The system 28msec generated this result transmit dante reference range [...] 21 Lab Interpretation Abnormal (test code = 64198-3) [facility] GAS, [id number] 04:00:34 Test Item Value Reference Range Interpretation [...] (test code = 1819) 21.0 Lactic Acid, [id number] 03:57:33 Test Item Value Reference Range Interpretation Comments Lactate, Art (test code = 0.8 mmol/L 0.5-2.2 2874) EMERSON (test code = EMERSON) Fiberglass Machine Operator ID - MARZENA M Lab Interpretation (test Normal code = 74737-2) [facility] CenterLactic Acid, [id number] 03:57:33 Test Item Value Reference Range Interpretation Comments Lactate, Art (test code = 0.8 mmol/L 0.5-2.2 2874) EMERSON (test code = EMERSON) Fiberglass Machine Operator ID - MARZENA M Lab Interpretation (test Normal code = 60786-2) [facility] CenterLACTIC ACID, [id number] 03:57:33 Test Item Value Reference Range Interpretation Comments LACTATE BLOOD ARTERIAL (2) 0.8 mmol/L 0.5-2.2 (BEAKER) (test code = 2874) Fiberglass Machine Operator ID - MARZENA MCALCIUM, [id number] 03:56:36 Test Item Value Reference Range Interpretation Comments CALCIUM IONIZED (BEAKER) (test 1.13 mmol/L 1.12-1.27 code = 698) PH, BLOOD (BEAKER) (test code = 7.48 1810) [id number] 21:01:53 Test Item Value Reference Range Interpretation Comments MAGNESIUM (BEAKER) (test code = 2.2 mg/dL 1.6-2.6 627) Fiberglass Machine Operator ID - DBBASIC METABOLIC [id number] 21:01:52 Test Item Value Reference Range Interpretation [...] S NOT APPLICABLE FOR DIALYSIS PATIEN TS. Fiberglass Machine Operator ID - DBHemoglobin and [id number] 20:37:40 Test Item Value Reference Range Interpretation [...] = 4544-3) EMERSON (test code = EMERSON) Fiberglass Machine Operator ID - [id number] Lab Interpretation Abnormal (test code = 59827-2) [facility] CenterHemoglobin and [id number] 20:37:40 Test Item Value Reference Range Interpretation [...] = 4544-3) EMERSON (test code = EMERSON) Fiberglass Machine Operator ID - [id number] Lab Interpretation Abnormal (test code = 15876-5) [facility] CenterHEMOGLOBIN AND [id number] 20:37:40 Test Item Value Reference Range Interpretation Comments HEMOGLOBIN (BEAKER) (test code = 8.3 GM/DL 13.7-17.5 L 410) HEMATOCRIT (BEAKER) (test code = 26.6 % 40.1-51.0 L 411) Fiberglass Machine Operator ID - [id number]-GLUCOSE [id number] 20:36:55 Test Item Value Reference Range Interpretation Comments POC-GLUCOSE METER 110 mg/dL 70-110 : TESTED A T [facility] 6720 (BEAKER) (test code = [facility] [place], 1538) [address]: Fiberglass Machine Operator/Techni bart ID = [id number] for BEVERLEY WIGGINS POCT-GLUCOSE [id number] 16:19:31 Test Item Value Reference Range Interpretation Comments POC-GLUCOSE METER 127 mg/dL 70-110 H : TESTED A T [facility] 6720 (BEAKER) (test code = [facility] Srikanth [facility], 1538) [address]: Fiberglass Machine Operator/Techni bart ID = [id number] for ABDOULAYE WOODS [id number] 12:45:58 Test Item Value Reference Range Interpretation Comments MAGNESIUM (BEAKER) (test code = 2.4 mg/dL 1.6-2.6 627) Fiberglass Machine Operator ID - [id number] 12:45:58 Test Item Value Reference Range Interpretation Comments PHOSPHORUS (BEAKER) (test code = 2.7 mg/dL 2.3-4.7 604) Fiberglass Machine Operator ID - RMBASIC METABOLIC [id number] 12:45:57 Test Item Value Reference Range Interpretation [...] S NOT APPLICABLE FOR DIALYSIS PATIEN TS. Fiberglass Machine Operator ID - RMCALCIUM, [id number] 12:25:40 Test Item Value Reference Range Interpretation Comments CALCIUM IONIZED (BEAKER) (test 1.09 mmol/L 1.12-1.27 L code = 698) PH, BLOOD (BEAKER) (test code = 7.46 1810) Oxygen saturation, [id number] 12:25:23 Test Item Value Reference Range Interpretation Comments O2 Saturation (Measured) (test code = 53.2 % 07124-3) [facility] CenterO[facility] saturation, [id number] 12:25:23 Test Item Value Reference Range Interpretation Comments O2 Saturation (Measured) (test code = 53.2 % 56297-9) [facility] CenterOXYGEN SATURATION, [id number] 12:25:23 Test Item Value Reference Range Interpretation Comments O2 SATURATION (MEASURED) (BEAKER) 53.2 % (test code = 1455) POCT-GLUCOSE [id number] 11:12:10 Test Item Value Reference Range Interpretation Comments POC-GLUCOSE METER 87 mg/dL 70-110 : TESTED A T [facility] 6720 (BEAKER) (test code = [facility], 1538) [address]: Fiberglass Machine Operator/Techni bart ID = [id number] for HINT PABLITO VANCE POCT-GLUCOSE [id number] 08:30:46 Test Item Value Reference Range Interpretation Comments POC-GLUCOSE METER 120 mg/dL 70-110 H : TESTED A T [facility] 6720 (BEAKER) (test code = [facility], 1538) [address]: Fiberglass Machine Operator/Techni bart ID = [id number] for PH ABDOULAYE ROJAS OXYGEN SATURATION, [id number] 06:27:31 Test Item Value Reference Range Interpretation Comments O2 SATURATION (MEASURED) (BEAKER) 54.6 % (test code = 1455) HEPATIC FUNCTION [id number] 04:48:25 Test Item Value Reference Range Interpretation [...] Specimen moderately (test code = 347) hemolyzed Fiberglass Machine Operator ID - KEARA [id number] 04:48:24 Test Item Value Reference Range Interpretation Comments PHOSPHORUS (BEAKER) 2.8 mg/dL 2.3-4.7 Specimen moderately (test code = 604) hemolyzed Fiberglass Machine Operator ID - KEARA WBASIC METABOLIC [id number] 04:48:24 Test Item Value Reference Range Interpretation [...] S NOT APPLICABLE FOR DIALYSIS PATIEN TS. Fiberglass Machine Operator ID - KEARA [id number] 04:48:23 Test Item Value Reference Range Interpretation Comments MAGNESIUM (BEAKER) 2.1 mg/dL 1.6-2.6 Specimen moderately (test code = 627) hemolyzed Fiberglass Machine Operator ID - KEARA WPT/[id number] 04:45:21 Test Item Value Reference Range Interpretation [...] mechanical heart valves.CBC W/PLT COUNT & AUTO [id number] 04:41:38 Test Item Value Reference Range Interpretation [...] (BEAKER) (test code = 2801) LACTIC ACID, [id number] 04:32:15 Test Item Value Reference Range Interpretation Comments LACTATE BLOOD 1.0 mmol/L 0.5-2.2 Specimen moder ately ARTERIAL (2) (BEAKER) hemoly zed (test code = 2164) Fiberglass Machine Operator ID - KEARA WCALCIUM, [id number] 04:12:20 Test Item Value Reference Range Interpretation Comments CALCIUM IONIZED (BEAKER) (test 1.08 mmol/L 1.12-1.27 L code = 698) PH, BLOOD (BEAKER) (test code = 7.51 1810) BLOOD GAS, [id number] 04:12:14 Test Item Value Reference Range Interpretation [...] (test code = 1819) 21.0 OXYGEN SATURATION, [id number] 04:12:09 Test Item Value Reference Range Interpretation Comments O2 SATURATION (MEASURED) (BEAKER) 57.4 % (test code = 1455) RAD, CHEST, 1 VIEW, NON [id number] 03:17:00while patient is intubated or has chest tubes.Reason for exam:->Status post CV SurgeryShould thisbe performed at the bedside?->Yes [facility] 1945 Sex: MFINAL REPORT RAD, CHEST, 1 VIEW, NON DEPT INDICATION: Status post CV Surgery COMPARISON: Prior day's exam FINDINGS: Portable frontal view of the chest. IMPRESSION: Support Lines: Stable. Lungs and pleura: Unchanged airspace and pleural opacities. No pneumothorax.Heart and mediastinum: Stable contours. Stable surgical changes.Additional findings: None. Signed: Rm Nassar Verified Date/Time: 09/11/2021 03:17:44 Electronically signed by: Emir BARRIOS 09/11/2021 03:17 AMBASIC METABOLIC [id number] 22:33:36 Test Item Value Reference Range Interpretation [...] S NOT APPLICABLE FOR DIALYSIS PATIEN TS. Fiberglass Machine Operator ID - [id number] 22:33:35 Test Item Value Reference Range Interpretation Comments MAGNESIUM (BEAKER) 2.5 mg/dL 1.6-2.6 Specimen slightly (test code = 627) hemolyzed Fiberglass Machine Operator ID - DBPOCT-GLUCOSE [id number] 22:18:05 Test Item Value Reference Range Interpretation Comments POC-GLUCOSE METER 113 mg/dL 70-110 H : TESTED A T [facility] 6720 (BEAKER) (test [facility] = [facility], 1538) [address]: Fiberglass Machine Operator/Techni bart ID = [id number] for ERASMO PORRAS HEMOGLOBIN AND [id number] 22:16:52 Test Item Value Reference Range Interpretation Comments HEMOGLOBIN (BEAKER) (test code = 8.3 GM/DL 13.7-17.5 L 410) HEMATOCRIT (BEAKER) (test code = 25.3 % 40.1-51.0 L 411) Fiberglass Machine Operator ID - [id number]-GLUCOSE [id number] 17:01:08 Test Item Value Reference Range Interpretation Comments POC-GLUCOSE METER 116 mg/dL 70-110 H : TESTED A T [facility] 6720 (BEAKER) (test code = [facility] ZEALER [facility], 1538) [address]: Fiberglass Machine Operator/Techni brat ID = [id number] for SERAFIN ATWOOD 2D Echo W/Doppler(CW/PW/Color)2021-09-10 16:05:16Ejection FractionSLEH ECHO HE[facility]/Doppler(CW/PW/Color)2021-09-10 16:05:16Ejection FractionSLEH ECHO HEARTLAB [facility] HospitalOXYGEN SATURATION, [id number] 15:40:36 Test Item Value Reference Range Interpretation Comments O2 SATURATION (MEASURED) (BEAKER) 79.1 % (test code = 1455) [id number] 13:24:14 Test Item Value Reference Range Interpretation Comments MAGNESIUM (BEAKER) (test code = 2.2 mg/dL 1.6-2.6 627) Fiberglass Machine Operator ID - PIAYA LBASIC METABOLIC [id number] 13:24:13 Test Item Value Reference Range Interpretation [...] S NOT APPLICABLE FOR DIALYSIS PATIEN TS. Fiberglass Machine Operator ID - PIAYA LCALCIUM, [id number] 13:05:15 Test Item Value Reference Range Interpretation Comments CALCIUM IONIZED (BEAKER) (test 1.06 mmol/L 1.12-1.27 L code = 698) PH, BLOOD (BEAKER) (test code = 7.52 1810) POCT-GLUCOSE [id number] 11:27:00 Test Item Value Reference Range Interpretation Comments POC-GLUCOSE METER 138 mg/dL 70-110 H : TESTED A T [facility] 6720 (BEAKER) (test code = [facility] [place], 1538) [address]: Fiberglass Machine Operator/Techni bart ID = [id number] for SERAFIN ATWOOD POCT-GLUCOSE [id number] 07:54:29 Test Item Value Reference Range Interpretation Comments POC-GLUCOSE METER 133 mg/dL 70-110 H : TESTED A T [facility] 6720 (BEAKER) (test code = [facility] [place], 1538) [address]: Fiberglass Machine Operator/Techni bart ID = [id number] for SERAFIN ATWOOD HEPATIC FUNCTION [id number] 05:39:39 Test Item Value Reference Range Interpretation [...] (test code = 44 U/L 6-55 347) Fiberglass Machine Operator ID - KAYLEEN [id number] 05:39:38 Test Item Value Reference Range Interpretation Comments PHOSPHORUS (BEAKER) (test code = 2.9 mg/dL 2.3-4.7 604) Fiberglass Machine Operator ID - KAYLEEN LBASIC METABOLIC [id number] 05:39:37 Test Item Value Reference Range Interpretation [...] S NOT APPLICABLE FOR DIALYSIS PATIEN TS. Fiberglass Machine Operator ID - KAYLEEN [id number] 05:39:37 Test Item Value Reference Range Interpretation Comments MAGNESIUM (BEAKER) (test code = 2.2 mg/dL 1.6-2.6 627) Fiberglass Machine Operator ID - KAYLEEN LLACTIC ACID, [id number] 05:27:27 Test Item Value Reference Range Interpretation Comments LACTATE BLOOD 0.9 mmol/L 0.5-2.2 Specimen sligh tly ARTERIAL (2) (BEAKER) hemoly zed (test code = 2874) Fiberglass Machine Operator ID - KAYLEEN LPT/[id number] 05:14:24 Test Item Value Reference Range Interpretation [...] for patients with mechanical heart valves.OXYGEN SATURATION, [id number] 05:07:37 Test Item Value Reference Range Interpretation Comments O2 SATURATION (MEASURED) (BEAKER) 77.5 % (test code = 1455) CBC W/PLT COUNT & AUTO [id number] 05:07:13 Test Item Value Reference Range Interpretation [...] = 2801) RAD, CHEST, 1 VIEW, NON [id number] 05:07:00while patient is intubated or has chest tubes.Reason for exam:->Status post CV SurgeryShould thisbe performed at the bedside?->Yes [facility] 1945 Sex: MFINAL REPORT RAD, CHEST, 1 VIEW, NON DEPT INDICATION: Status post CV Surgery COMPARISON: Prior day's exam FINDINGS: Portable frontal view of the chest. IMPRESSION: Support Lines: Stable. Lungs and pleura: Unchanged bibasilar airspace and pleural opacities. No pneumothorax. Heart and mediastinum: Stable contours. Additional findings: None. Signed: Halley Osullivan MDR[facility] Verified Date /Time: 09/10/2021 05:07:16 CALCIUM, [id number] 05:03:15 Test Item Value Reference Range Interpretation Comments CALCIUM IONIZED (BEAKER) (test 1.08 mmol/L 1.12-1.27 L code = 698) PH, BLOOD (BEAKER) (test code = 7.51 1810) BLOOD GAS, [id number] 05:00:52 Test Item Value Reference Range Interpretation [...] (BEAKER) (test code = 1819) 21.0 POCT-GLUCOSE [id number] 22:18:19 Test Item Value Reference Range Interpretation Comments POC-GLUCOSE METER 157 mg/dL 70-110 H : TESTED A T [facility] 6720 (BEAKER) (test code = [place], 1538) [address]: Fiberglass Machine Operator/Techni bart ID = [id number] for VISHAL GAINES CALCIUM, [id number] 20:12:13 Test Item Value Reference Range Interpretation Comments CALCIUM IONIZED (BEAKER) (test 1.11 mmol/L 1.12-1.27 L code = 698) PH, BLOOD (BEAKER) (test code = 7.47 7720) OXYGEN SATURATION, [id number] 20:12:01 Test Item Value Reference Range Interpretation Comments O2 SATURATION (MEASURED) (BEAKER) 78.0 % (test code = 1455) LACTIC ACID, [id number] 20:12:01 Test Item Value Reference Range Interpretation Comments LACTATE BLOOD 1.4 mmol/L 0.5-2.2 Specimen sligh tly ARTERIAL (2) (BEAKER) hemoly zed (test code = 2874) Fiberglass Machine Operator ID - [id number] 20:09:04 Test Item Value Reference Range Interpretation Comments PHOSPHORUS (BEAKER) 2.7 mg/dL 2.3-4.7 Specimen slightly (test code = 604) hemolyzed Fiberglass Machine Operator ID - DBBASIC METABOLIC [id number] 20:09:04 Test Item Value Reference Range Interpretation [...] S NOT APPLICABLE FOR DIALYSIS PATIEN TS. Fiberglass Machine Operator ID - [id number] 20:09:03 Test Item Value Reference Range Interpretation Comments MAGNESIUM (BEAKER) 2.1 mg/dL 1.6-2.6 Specimen slightly (test code = 627) hemolyzed Fiberglass Machine Operator ID - DBHEMOGLOBIN AND [id number] 19:51:19 Test Item Value Reference Range Interpretation Comments HEMOGLOBIN (BEAKER) (test code = 8.3 GM/DL 13.7-17.5 L 410) HEMATOCRIT (BEAKER) (test code = 25.6 % 40.1-51.0 L 411) Fiberglass Machine Operator ID - [id number] SATURATION, [id number] 09:51:00 Test Item Value Reference Range Interpretation Comments O2 SATURATION (MEASURED) (BEAKER) 67.0 % (test code = 1455) RAD, CHEST, 1 VIEW, NON [id number] 06:36:00while patient is intubated or has chest tubes.Reason for exam:->Status post CV SurgeryShould thisbe performed at the bedside?->Yes [facility]ILVER SWANSONSanto BACH : 1945 Sex: MFINAL REPORT RAD, CHEST, 1 VIEW, NON DEPT INDICATION: Status post CV Surgery COMPARISON: Prior day's exam FINDINGS: Portable frontal view of the chest. IMPRESSION: Support Lines: Right chest tube. [place] tip overlies the pulmonary outflow tract. Lungs and pleura: Retrocardiac opacity representing singly or in combination airspace disease, atelectasis and/or effusion. Bibasilar interstitial thickening is unchanged. No significant pneumothorax. Heart and mediastinum: Stable contours. Stable surgical changes. Additional findings: None. Signed: Gaby Cordero Verified Date/Time: 09/09/2021 06:36:02 OXYGEN SATURATION, [id number] 05:12:23 Test Item Value Reference Range Interpretation Comments O2 SATURATION (MEASURED) (BEAKER) 98.5 % (test code = 1455) [id number] 03:20:36 Test Item Value Reference Range Interpretation Comments PHOSPHORUS (BEAKER) (test code = 2.6 mg/dL 2.3-4.7 604) Fiberglass Machine Operator ID - MARZENA [id number] 03:20:35 Test Item Value Reference Range Interpretation Comments MAGNESIUM (BEAKER) (test code = 2.1 mg/dL 1.6-2.6 627) Fiberglass Machine Operator ID - MARZENA MCOMPREHENSIVE METABOLIC [id number] 03:20:34 Test Item Value Reference Range Interpretation [...] S NOT APPLICABLE FOR DIALYSIS PATIEN TS. Fiberglass Machine Operator ID - MARZENA MPOCT-GLUCOSE [id number] 03:04:55 Test Item Value Reference Range Interpretation Comments POC-GLUCOSE METER 143 mg/dL 70-110 H [facility] (test code = [facility], 1538) [address]: Fiberglass Machine Operator/Techni bart ID = [id number] for Cathleen Acuña BLOOD GAS, [id number] 02:57:44 Test Item Value Reference Range Interpretation [...] See_Comment H [A utomated message] The system uTaP generated this result transmitted ref erence range: 3.5 - 10 .5 K/L. The refe rence range was not u sed to interpret this result as normal/abnor mal. RBC (test code = 789-8) 3.05 See_Comment L [Au tomated message] The system uTaP generated this result transmitted ref erence range: 4.63 - 6 .08 M/L. The refe rence range was not u sed to interpret this result as normal/abnor mal. MCHC (test code = 786-4) 31.7 See_Comment L [A utomated message] The system uTaP generated this result transmitted ref erence range: [...] See_Comment [Aut omated message] 777-3) The system uTaP generated this result transmitted ref erence range: 150 - 45 0 K/CU MM. The referen ce range was not u sed to interpret this result as normal/abnor mal. MPV (test code = 10.7 fL 9.4-12.4 96640-2) nRBC (test code = 413) 0 See_Comment [Aut omated message] The system uTaP generated this result transmitted ref erence range: 0 - 0 /1 00 WBC. The refere nce range was not u sed to interpret this result as normal/abnor mal. Lab Interpretation (test Abnormal code = 61076-9) [facility]21-[facility]-09 02:57:29 Test Item Value Reference Range Interpretation Comments WBC (test code = 6690-2) 14.5 See_Comment H [A utomated message] The system uTaP generated this result transmitted ref erence range: 3.5 - 10 .5 K/L. The refe rence range was not u sed to interpret this result as normal/abnor mal. RBC (test code = 789-8) 3.05 See_Comment L [Au tomated message] The system uTaP generated this result transmitted ref erence range: 4.63 - 6 .08 M/L. The refe rence range was not u sed to interpret this result as normal/abnor mal. MCHC (test code = 786-4) 31.7 See_Comment L [A utomated message] The system uTaP generated this result transmitted ref erence range: [...] See_Comment [Aut omated message] 777-3) The system uTaP generated this result transmitted ref erence range: 150 - 45 0 K/CU MM. The referen ce range was not u sed to interpret this result as normal/abnor mal. MPV (test code = 10.7 fL 9.4-12.4 89626-3) nRBC (test code = 413) 0 See_Comment [Aut omated message] The system uTaP generated this result transmitted ref erence range: 0 - 0 /1 00 WBC. The refere nce range was not u sed to interpret this result as normal/abnor mal. Lab Interpretation (test Abnormal code = 89051-2) [facility]21-[facility]-09 02:57:29 Test Item Value Reference [...] 0-0 (BEAKER) (test code = 413) CALCIUM, [id number] 02:57:28 Test Item Value Reference Range Interpretation Comments CALCIUM IONIZED (BEAKER) (test 1.12 mmol/L 1.12-1.27 code = 698) PH, BLOOD (BEAKER) (test code = 7.46 1810) POCT-GLUCOSE [id number] 21:16:02 Test Item Value Reference Range Interpretation Comments POC-GLUCOSE METER 169 mg/dL 70-110 H : TESTED A T [facility] 6720 (BEAKER) (test code = [place], 1538) [address]: Fiberglass Machine Operator/Techni bart ID = [id number] for Am rodrigo, Walker POCT-GLUCOSE [id number] 21:12:37 Test Item Value Reference Range Interpretation Comments POC-GLUCOSE METER 140 mg/dL 70-110 H : TESTED A T [facility] 6720 (BEAKER) (test code [place], = 1538) [address]: Fiberglass Machine Operator/Techni bart ID = [id number] for SEAN REED (contract)NICHELLE 2D Echo W/Doppler(CW/PW/Color)2021-09-08 15:37:08Ejection FractionSLEH [facility]CHO [facility]/Do[facility](CW/PW/Color)2021-09-08 15:37:08Ejection FractionSLEH ECHO HEARTLAB MKCKESSON [facility]2022-[facility]-21 15:32:47 Test Item Value Reference Range Interpretation Comments POTASSIUM (BEAKER) 4.3 meq/L 3.5-5.1 Specimen slightly (test code = 379) hemolyzed Fiberglass Machine Operator ID - KAYLEEN [id number] 15:32:46 Test Item Value Reference Range Interpretation Comments MAGNESIUM (BEAKER) 2.0 mg/dL 1.6-2.6 Specimen slightly (test code = 627) hemolyzed Fiberglass Machine Operator ID - KAYLEEN LCBC W/PLT COUNT & AUTO [id number] 15:19:56 Test Item Value Reference Range Interpretation [...] PERCENT (BEAKER) (test code = 2801) CALCIUM, [id number] 15:12:46 Test Item Value Reference Range Interpretation Comments CALCIUM IONIZED (BEAKER) (test 1.11 mmol/L 1.12-1.27 L code = 698) PH, BLOOD (BEAKER) (test code = 7.48 1810) POCT-GLUCOSE [id number] 14:49:24 Test Item Value Reference Range Interpretation Comments POC-GLUCOSE METER 102 mg/dL 70-110 : TESTED A T [facility] 6720 (BEAKER) (test code [facility], = 1538) [address]: Fiberglass Machine Operator/Techni bart ID = [id number] for SEAN REED (contract) NICHELLE BUCIO POCT-GLUCOSE [id number] 10:32:59 Test Item Value Reference Range Interpretation Comments POC-GLUCOSE METER 104 mg/dL 70-110 : TESTED A T [facility] 6720 (BEAKER) (test code [facility], = 1538) [address]: Fiberglass Machine Operator/Techni bart ID = [id number] for SEAN REED (contract), NICHELLE ALVARENGALAVA HEMOGLOBIN AND [id number] 10:32:38 Test Item Value Reference Range Interpretation Comments HEMOGLOBIN (BEAKER) (test code = 7.7 GM/DL 13.7-17.5 L 410) HEMATOCRIT (BEAKER) (test code = 25.3 % 40.1-51.0 L 411) Fiberglass Machine Operator ID - [id number]-GLUCOSE [id number] 09:26:31 Test Item Value Reference Range Interpretation Comments POC-GLUCOSE METER 96 mg/dL 70-110 : TESTED A T [facility] 6720 (BEAKER) (test code = [facility], 1538) [address]: Fiberglass Machine Operator/Techni bart ID = [id number] for SEAN REED (contract), NICHELLE BUCIO LACTIC ACID, [id number] 09:18:52 Test Item Value Reference Range Interpretation Comments LACTATE BLOOD ARTERIAL (2) 1.7 mmol/L 0.5-2.2 (BEAKER) (test code = 2874) Fiberglass Machine Operator ID - DBOXYGEN SATURATION, [id number] 09:17:35 Test Item Value Reference Range Interpretation Comments O2 SATURATION (MEASURED) (BEAKER) 60.3 % (test code = 1455) POCT-GLUCOSE [id number] 09:09:11 Test Item Value Reference Range Interpretation Comments POC-GLUCOSE METER 101 mg/dL 70-110 : TESTED A T [facility] 6720 (BEAKER) (test code [facility], = 1538) [address]: Fiberglass Machine Operator/Techni bart ID = [id number] for SEAN REED (contract), NICHELLE OSLAVA BLOOD GAS, [id number] 09:08:49 Test Item Value Reference Range Interpretation [...] = No growth in 5 days 6463-4) [facility] - [facility] (Left Venipuncture)2021-09-08 08:00:53 Test Item Value Reference Range Interpretation Comments Result (test code = No growth in 5 days 6463-4) [facility] CenterBLOOD [id number] 08:00:53 Test Item Value Reference Range Interpretation Comments CULTURE (BEAKER) (test No growth in 5 days code = 1095) BLOOD [id number] 08:00:52 Test Item Value Reference Range Interpretation Comments CULTURE (BEAKER) (test No growth in 5 days code = 1095) [id number] 07:57:26 Test Item Value Reference Range Interpretation Comments Scan Result (test code = See scanned report [id number]) EMERSON (test code = EMERSON) See scanned report [facility] CenterROTEM2022-01-21 07:57:26 Test Item Value Reference Range Interpretation Comments Scan Result (test code = See scanned report [id number]) EMERSON (test code = EMERSON) See scanned report [facility] CenterMISCELLANEOUS LAB [id number] 07:57:26 Test Item Value Reference Range Interpretation Comments SCAN RESULT (test code = See scanned report [id number]) See scanned reportLACTIC ACID, [id number] 06:32:27 Test Item Value Reference Range Interpretation Comments LACTATE BLOOD ARTERIAL (2) 3.0 mmol/L 0.5-2.2 H (BEAKER) (test code = 2874) Fiberglass Machine Operator ID - PIAYA LPOC ACTIVATED CLOTTING [id number] 06:31:19 Test Item Value Reference Range Interpretation Comments Activated Clotting Time 142 sec : 74 -137 seconds, (test code = 3184-9) Baselin e: TESTED AT [address] [place], [address]: Fiberglass Machine Operator/Techni bart ID = [id number] for Sa enz, Angela [facility] ACTIVATED CLOTTING [id number] 06:31:19 Test Item Value Reference Range Interpretation Comments Activated Clotting Time 142 sec : 74 -137 seconds, (test code = 441) Baseline: TESTED AT [address], [address]: Fiberglass Machine Operator/Techni bart ID = [id number] for Sa enz, Angela [id number] 06:31:19 Test Item Value Reference Range Interpretation Comments ACTIVATED CLOTTING TIME 142 sec : 74 -137 seconds, (BEAKER) (test code = Baseli ne: TESTED AT 441) [address], [address]: Fiberglass Machine Operator/Techni bart ID = [id number] for Sa enz, Angela [id number] 06:31:17 Test Item Value Reference Range Interpretation Comments ACTIVATED CLOTTING TIME 785 sec : 74 -137 seconds, (BEAKER) (test code = Baseli ne: TESTED AT 441) [address], [address]: Fiberglass Machine Operator/Techni bart ID = [id number] for Sa enz, Angela [id number] 06:31:17 Test Item Value Reference Range Interpretation Comments ACTIVATED CLOTTING TIME 964 sec : 74 -137 seconds, (BEAKER) (test code = Baseli ne: TESTED AT 441) [address], [address]: Fiberglass Machine Operator/Techni bart ID = [id number] for Sa enz, Angela [id number] 06:31:16 Test Item Value Reference Range Interpretation Comments ACTIVATED CLOTTING TIME > sec : 74 -137 seconds, (BEAKER) (test code = Baseli ne: TESTED AT 441) [address], [address]: Fiberglass Machine Operator/Techni bart ID = [id number] for Sa enz, Angela [id number] 06:31:15 Test Item Value Reference Range Interpretation Comments ACTIVATED CLOTTING TIME > sec : 74 -137 seconds, (BEAKER) (test code = Baseli ne: TESTED AT 441) [address], [address]: Fiberglass Machine Operator/Techni bart ID = [id number] for Sa enz, Angela [id number] 06:31:14 Test Item Value Reference Range Interpretation Comments ACTIVATED CLOTTING TIME 708 sec : 74 -137 seconds, (BEAKER) (test code = Josei ne: TESTED AT 441) [facility] [address] [facility], [address]: Fiberglass Machine Operator/Techni bart ID = [id number] for Angela [place] [id number] 06:31:13 Test Item Value Reference Range Interpretation Comments ACTIVATED CLOTTING TIME 154 sec : 74 -137 seconds, (BEAKER) (test code = Baseli ne: TESTED AT 441) [facility] 67[address] [facility], [address]: Fiberglass Machine Operator/Techni bart ID = [id number] for Sa Angela chaudhari POCT-GLUCOSE [id number] 06:26:19 Test Item Value Reference Range Interpretation Comments POC-GLUCOSE METER 117 mg/dL 70-110 H : [place] [address] (BEAKER) (test code = [facility], 1538) [address]: Fiberglass Machine Operator/Techni bart ID = [id number] for La nate Jane HGB/HCT (H&H)-Stat [id number] 06:21:12 Test Item Value Reference Range Interpretation Comments Hemoglobin (test code = 8.3 See_Comment L [Au tomated message] 786-4) The system uTaP generated this result transmitted ref erence range: 13.0 - 1 6.8 GM/DL. The refe rence range was not u sed to interpret this result as normal/abnor mal. Hematocrit (test code = 24.0 % 40.0-50.0 L 4544-3) Lab Interpretation (test Abnormal code = 09311-2) [facility] CenterGlucose-Stat [id number] 06:21:12 Test Item Value Reference Range Interpretation Comments Glucose (test code = 2345-7) 123 mg/dL 70-110 H Lab Interpretation (test code = Abnormal 39942-5) [facility] CenterHGB/HCT (H&H)-Stat [id number] 06:21:12 Test Item Value Reference Range Interpretation Comments Hemoglobin (test code = 8.3 See_Comment L [Au tomated message] 786-4) The system uTaP generated this result transmitted ref erence range: 13.0 - 1 6.8 GM/DL. The refe rence range was not u sed to interpret this result as normal/abnor mal. Hematocrit (test code = 24.0 % 40.0-50.0 L 4544-3) Lab Interpretation (test Abnormal code = 24428-8) [facility] CenterGlucose-Stat [id number] 06:21:12 Test Item Value Reference Range Interpretation Comments Glucose (test code = 2345-7) 123 mg/dL 70-110 H Lab Interpretation (test code = Abnormal 07069-8) [facility] CenterGLUCOSE-STAT [id number] 06:21:12 Test Item Value Reference Range Interpretation Comments GLUCOSE RANDOM (BEAKER) (test code 123 mg/dL 70-110 H = 652) HGB/HCT (H&H) - STAT [id number] 06:21:12 Test Item Value Reference Range Interpretation Comments HEMOGLOBIN (BEAKER) (test code = 8.3 GM/DL 13.0-16.8 L 410) HEMATOCRIT (BEAKER) (test code = 24.0 % 40.0-50.0 L 411) BLOOD GAS, [id number] 06:21:11 Test Item Value Reference Range Interpretation [...] (BEAKER) (test code = 1819) 40.0 Potassium-Stat [id number] 06:19:05 Test Item Value Reference Range Interpretation Comments Potassium (test code = 2823-3) 4.1 meq/L 3.6-5.5 Lab Interpretation (test code = Normal 68437-8) [facility] CenterPotassium-Stat [id number] 06:19:05 Test Item Value Reference Range Interpretation Comments Potassium (test code = 2823-3) 4.1 meq/L 3.6-5.5 Lab Interpretation (test code = Normal 86627-2) [facility] CenterPOTASSIUM-STAT [id number] 06:19:05 Test Item Value Reference Range Interpretation Comments POTASSIUM (BEAKER) (test code = 4.1 meq/L 3.6-5.5 379) Sodium Na-Stat [id number] 06:19:04 Test Item Value Reference Range Interpretation Comments Sodium (test code = 2951-2) 140 meq/L 136-145 Lab Interpretation (test code = Normal 51868-0) [facility] [id number] 06:19:04 Test Item Value Reference Range Interpretation Comments Sodium (test code = 2951-2) 140 meq/L 136-145 Lab Interpretation (test code = Normal 69820-9) [facility] CenterODIUM NA-STAT [id number] 06:19:04 Test Item Value Reference Range Interpretation Comments SODIUM (BEAKER) (test code = 381) 140 meq/L 136-145 POCT-GLUCOSE [id number] 06:03:00 Test Item Value Reference Range Interpretation Comments POC-GLUCOSE METER 117 mg/dL 70-110 H : TESTED A T [facility] 6720 (BEAKER) (test code = [place] [facility], 1538) [address]: Fiberglass Machine Operator/Techni bart ID = [id number] for La nate, Jane POCT-GLUCOSE [id number] 04:27:30 Test Item Value Reference Range Interpretation Comments POC-GLUCOSE METER 131 mg/dL 70-110 H : TESTED A T [facility] 6720 (BEAKER) (test code = [place] [facility], 1538) [address]: Fiberglass Machine Operator/Techni bart ID = [id number] for La nate, Jane HGB/HCT (H&H) - STAT [id number] 04:22:31 Test Item Value Reference Range Interpretation Comments HEMOGLOBIN (BEAKER) (test code = 8.5 GM/DL 13.0-16.8 L 410) HEMATOCRIT (BEAKER) (test code = 25.0 % 40.0-50.0 L 411) BLOOD GAS, [id number] 04:22:30 Test Item Value Reference Range Interpretation [...] (BEAKER) (test code = 1819) 40.0 GLUCOSE-STAT [id number] 04:22:30 Test Item Value Reference Range Interpretation Comments GLUCOSE RANDOM (BEAKER) (test code 145 mg/dL 70-110 H = 652) OXYGEN SATURATION, [id number] 04:22:06 Test Item Value Reference Range Interpretation Comments O2 SATURATION (MEASURED) (BEAKER) 70.0 % (test code = 1455) SODIUM NA-STAT [id number] 04:21:07 Test Item Value Reference Range Interpretation Comments SODIUM (BEAKER) (test code = 381) 138 meq/L 136-145 POTASSIUM-STAT [id number] 04:21:07 Test Item Value Reference Range Interpretation Comments POTASSIUM (BEAKER) (test code = 4.0 meq/L 3.6-5.5 379) RAD, CHEST, 1 VIEW, NON [id number] 04:06:00while patient is intubated or has chest tubes.Reason for exam:->Status post CV SurgeryShould thisbe performed at the bedside?->Yes [facility] 1945 Sex: MFINAL REPORT RAD, CHEST, 1 VIEW, NON DEPT INDICATION: Status post CV Surgery COMPARISON: Prior day's exam FINDINGS: Portable frontal view of the chest. IMPRESSION: Support Lines: Slight repositioning of the right IJ [place] catheter tip overlying the main pulmonary artery. Lungs and pleura: Unchanged airspace and pleural opacities. No pneumothorax.Heart and mediastinum: Stable co ntours. Stable surgical changes.Additional findings: None. Signed: Rm Nassar Verified Date/Time: 09/08/2021 04:06:10 LACTIC ACID, ARTERIAL 2021-09-08 03:28:09 Test Item Value Reference Range Interpretation Comments LACTATE BLOOD ARTERIAL (2) 4.4 mmol/L 0.5-2.2 HH (BEAKER) (test code = 2874) Fiberglass Machine Operator ID - DBPOCT-GLUCOSE [id number] 03:20:20 Test Item Value Reference Range Interpretation Comments POC-GLUCOSE METER 127 mg/dL 70-110 H : TESTED A T [facility] 6720 (BEAKER) (test code = [place], 1538) [address]: Fiberglass Machine Operator/Techni bart ID = [id number] for Jane Payne CBC W/PLT COUNT & AUTO [id number] 03:14:20 Test Item Value Reference Range Interpretation [...] 0-1 PERCENT (BEAKER) (test code = 2801) [id number] 03:02:27 Test Item Value Reference Range Interpretation Comments PHOSPHORUS (BEAKER) (test code = 2.5 mg/dL 2.3-4.7 604) Fiberglass Machine Operator ID - [id number] 03:02:26 Test Item Value Reference Range Interpretation Comments MAGNESIUM (BEAKER) (test code = 2.3 mg/dL 1.6-2.6 627) Fiberglass Machine Operator ID - DBCOMPREHENSIVE METABOLIC [id number] 03:02:25 Test Item Value Reference Range Interpretation [...] S NOT APPLICABLE FOR DIALYSIS PATIEN TS. Fiberglass Machine Operator ID - DBCALCIUM, [id number] 02:42:47 Test Item Value Reference Range Interpretation Comments CALCIUM IONIZED (BEAKER) (test 1.09 mmol/L 1.12-1.27 L code = 698) PH, BLOOD (BEAKER) (test code = 7.51 1810) GLUCOSE-STAT [id number] 02:42:45 Test Item Value Reference Range Interpretation Comments GLUCOSE RANDOM (BEAKER) (test code 162 mg/dL 70-110 H = 652) HGB/HCT (H&H) - STAT [id number] 02:42:45 Test Item Value Reference Range Interpretation Comments HEMOGLOBIN (BEAKER) (test code = 8.3 GM/DL 13.0-16.8 L 410) HEMATOCRIT (BEAKER) (test code = 24.0 % 40.0-50.0 L 411) BLOOD GAS, [id number] 02:42:44 Test Item Value Reference Range Interpretation [...] (test code = 1819) 40.0 SODIUM NA-STAT [id number] 02:39:19 Test Item Value Reference Range Interpretation Comments SODIUM (BEAKER) (test code = 381) 138 meq/L 136-145 POTASSIUM-STAT [id number] 02:39:19 Test Item Value Reference Range Interpretation Comments POTASSIUM (BEAKER) (test code = 3.8 meq/L 3.6-5.5 379) POCT-GLUCOSE [id number] 02:22:45 Test Item Value Reference Range Interpretation Comments POC-GLUCOSE METER 148 mg/dL 70-110 H : TESTED A T [facility] 6720 (BEAKER) (test code = [place], 1538) [address]: Fiberglass Machine Operator/Techni bart ID = [id number] for Jane Payne OXYGEN SATURATION, [id number] 01:24:13 Test Item Value Reference Range Interpretation Comments O2 SATURATION (MEASURED) (BEAKER) 71.6 % (test code = 1455) POCT-GLUCOSE [id number] 01:14:53 Test Item Value Reference Range Interpretation Comments POC-GLUCOSE METER 159 mg/dL 70-110 H : TESTED A T [facility] 6720 (BEAKER) (test code = [place] [facility], 1538) [address]: Fiberglass Machine Operator/Techni bart ID = [id number] for Jane Payne POCT-GLUCOSE [id number] 00:12:10 Test Item Value Reference Range Interpretation Comments POC-GLUCOSE METER 170 mg/dL 70-110 H : TESTED A T [facility] 6720 (BEAKER) (test code = [place] [facility], 1538) [address]: Fiberglass Machine Operator/Techni bart ID = [id number] for Jane Payne HGB/HCT (H&H) - STAT [id number] 00:01:07 Test Item Value Reference Range Interpretation Comments HEMOGLOBIN (BEAKER) (test code = 8.6 GM/DL 13.0-16.8 L 410) HEMATOCRIT (BEAKER) (test code = 25.0 % 40.0-50.0 L 411) BLOOD GAS, [id number] 00:01:06 Test Item Value Reference Range Interpretation [...] (BEAKER) (test code = 1819) 40.0 GLUCOSE-STAT [id number] 00:01:06 Test Item Value Reference Range Interpretation Comments GLUCOSE RANDOM (BEAKER) (test code 185 mg/dL 70-110 H = 652) POTASSIUM-STAT [id number] 00:00:02 Test Item Value Reference Range Interpretation Comments POTASSIUM (BEAKER) (test code = 4.0 meq/L 3.6-5.5 379) SODIUM NA-STAT [id number] 00:00:01 Test Item Value Reference Range Interpretation Comments SODIUM (BEAKER) (test code = 381) 138 meq/L 136-145 POCT-GLUCOSE [id number] 23:16:14 Test Item Value Reference Range Interpretation Comments POC-GLUCOSE METER 169 mg/dL 70-110 H : TESTED A T [facility] 6720 (BEAKER) (test code = [facility], 1538) [address]: Fiberglass Machine Operator/Techni bart ID = [id number] for La nate, Jane POCT-GLUCOSE [id number] 22:48:00 Test Item Value Reference Range Interpretation Comments POC-GLUCOSE METER 186 mg/dL 70-110 H : TESTED A T [facility] 6720 (BEAKER) (test code = [facility], 1538) [address]: Fiberglass Machine Operator/Techni bart ID = [id number] for La nate, Jane LACTIC ACID, [id number] 22:32:03 Test Item Value Reference Range Interpretation Comments LACTATE BLOOD ARTERIAL (2) 7.7 mmol/L 0.5-2.2 HH (BEAKER) (test code = 2874) Fiberglass Machine Operator ID - DBSpecimen slightly [id number] 22:20:51 Test Item Value Reference Range Interpretation Comments PARTIAL THROMBOPLASTIN TIME 50.9 seconds 22.5-36.0 H (BEAKER) (test code = 760) POCT-GLUCOSE [id number] 22:10:53 Test Item Value Reference Range Interpretation Comments POC-GLUCOSE METER 203 mg/dL 70-110 H : TESTED A T [facility] 6720 (BEAKER) (test code = [facility], 1538) 0[address]: Fiberglass Machine Operator/Techni bart ID = [id number] for La nate, Jane HGB/HCT (H&H) - STAT [id number] 22:10:05 Test Item Value Reference Range Interpretation Comments HEMOGLOBIN (BEAKER) (test code = 8.4 GM/DL 13.0-16.8 L 410) HEMATOCRIT (BEAKER) (test code = 25.0 % 40.0-50.0 L 411) GLUCOSE-STAT [id number] 22:10:04 Test Item Value Reference Range Interpretation Comments GLUCOSE RANDOM (BEAKER) (test code 203 mg/dL 70-110 H = 652) BLOOD GAS, [id number] 22:10:03 Test Item Value Reference Range Interpretation [...] (test code = 1819) 40.0 SODIUM NA-STAT [id number] 22:09:47 Test Item Value Reference Range Interpretation Comments SODIUM (BEAKER) (test code = 381) 140 meq/L 136-145 POTASSIUM-STAT [id number] 22:09:47 Test Item Value Reference Range Interpretation Comments POTASSIUM (BEAKER) (test code = 3.8 meq/L 3.6-5.5 379) BASIC METABOLIC [id number] 21:03:11 Test Item Value Reference Range Interpretation [...] S NOT APPLICABLE FOR DIALYSIS PATIEN TS. Fiberglass Machine Operator ID - MARZENA MHGB/HCT (H&H) - STAT [id number] 20:56:34 Test Item Value Reference Range Interpretation Comments HEMOGLOBIN (BEAKER) (test code = 9.2 GM/DL 13.0-16.8 L 410) HEMATOCRIT (BEAKER) (test code = 27.0 % 40.0-50.0 L 411) GLUCOSE-STAT [id number] 20:56:33 Test Item Value Reference Range Interpretation Comments GLUCOSE RANDOM (BEAKER) (test code 216 mg/dL 70-110 H = 652) BLOOD GAS, [id number] 20:56:32 Test Item Value Reference Range Interpretation [...] (BEAKER) (test code = 1819) 40.0 POTASSIUM-STAT [id number] 20:55:37 Test Item Value Reference Range Interpretation Comments POTASSIUM (BEAKER) (test code = 3.9 meq/L 3.6-5.5 379) SODIUM NA-STAT [id number] 20:55:36 Test Item Value Reference Range Interpretation Comments SODIUM (BEAKER) (test code = 381) 138 meq/L 136-145 LACTIC ACID, [id number] 19:32:31 Test Item Value Reference Range Interpretation Comments LACTATE BLOOD ARTERIAL (2) 9.1 mmol/L 0.5-2.2 HH (BEAKER) (test code = 2874) Fiberglass Machine Operator ID - MARZENA [facility] (HEMOGRAM ONLY)2021-09-07 19:15:57 Test Item Value Reference [...] (BEAKER) (test code = 413) BLOOD GAS, [id number] 19:14:26 Test Item Value Reference Range Interpretation [...] (test code = 1819) 60.0 OXYGEN SATURATION, [id number] 19:14:15 Test Item Value Reference Range Interpretation Comments O2 SATURATION (MEASURED) (BEAKER) 72.3 % (test code = 1455) POCT-GLUCOSE [id number] 18:29:54 Test Item Value Reference Range Interpretation Comments POC-GLUCOSE METER 170 mg/dL 70-110 H : TESTED A T [facility] 6720 ([place]) (test code = [place], 1538) [address]: Fiberglass Machine Operator/Techni bart ID = [id number] for CO ONCE, SHELLEY CT, CTA, [id number] 17:57:00Unlisted Reason for Exam - Click Yes and Enter Reason Below->YesUnlisted Reason for Exam->Pre op evaluation of aorta, assessment prior to cardiac surgery. need to see distance of aorta from chest wall and calcification of aorta [facility] 1945 Sex: MAddendum BeginsREPORT [...] MDReport Verified Date/Time: 09/07/2021 17:57:58 Reading Location: [facility] Radiology Reading RoomAddendum EndsFINAL REPORT CTA Aorta [...] dynamic passage of intravenous contrast material. Multi-planar 4-Fjcclov-wltquiktg reconstruction was performed using an independent workstation interactively by the interpreting physician as well as the 3-D specialist for optimal visualization of the thoracoabdominal aorta, the pelvic arteries as well as its proximal branches. Please refer to the contrast sheet scanned in the EPIC system for the amount and route of contrast given. This exam was performed accordingto our departmental dose-optimisation programme, which includes automated [...] lymphadenopathy, likely from prior granulomatous lung disease. Thepericardium appears normal. The pulmonary arteries are normal. [...] aorta. There is no acute aortic pathology. Network Support Technician dimensions of the thoracic aorta are as [...] The celiac axis, SMA, and KERRI are patent.There are two left and one right renal artery with mild to moderate calcific atherosclerotic changesinvolving the proximal segment of the left renal [...] the arch and descending thoracic aorta. The abdominal aorta is normal in course and caliber with mild to moderate calcification predominantly involving the infrarenal segment of the abdominal aorta. 3. The pelvic arteries are tortuous, mild calcific atherosclerotic changes involving the bilateral common iliac arteries, but normal in caliber. 4. Bilateral groundglass opacification and moderate right and small left pleural effusions with associated atelectasis of the lung benson, all consistent with p ulmonary congestion. 5. The visualized thyroid gland is remarkable for bilateral nodules in both thethyroid lobes with the largest measuring 1 cm in the left thyroid lobe, dedicated ultrasound is recommended given the size of the lesion. Signed: Bhargav Humphreys MDReport Verified Date/Time: 09/06/2021 10:03:27 CT, CTA [id number] 17:57:00Unlisted Reason for Exam - Click Yes and Enter Reason Below->YesUnlisted Reason for Exam->Evaluate descending aorta for calcification down to femoral vessels, prior to cannulation of femoral artery and vein for cardiac surgery. [facility] 1945 Sex: MAddendum BeginsREPORT [...] MDReport Verified Date/Time: 09/07/2021 17:57:58 Reading Location: [facility] Radiology Reading RoomAddendum EndsFINAL REPORT CTA Aorta [...] aorta. There is no acute aortic pathology. Network Support Technician dimensions of the thoracic aorta are as [...] lesion. Signed: Bhargav Humphreys MDReport Verified Date/Time: 0:03:27 LACTIC ACID, [id number] 17:36:22 Test Item Value Reference Range Interpretation Comments LACTATE BLOOD 8.2 mmol/L 0.5-2.2 HH Specimen sligh tly ARTERIAL (2) (BEAKER) hemoly zed (test code = 2874) Fiberglass Machine Operator ID - MARZENA MHGB/HCT (H&H) - STAT [id number] 17:15:52 Test Item Value Reference Range Interpretation Comments HEMOGLOBIN (BEAKER) (test code = 8.7 GM/DL 13.0-16.8 L 410) HEMATOCRIT (BEAKER) (test code = 26.0 % 40.0-50.0 L 411) GLUCOSE-STAT [id number] 17:15:51 Test Item Value Reference Range Interpretation Comments GLUCOSE RANDOM (BEAKER) (test code 179 mg/dL 70-110 H = 652) BLOOD GAS, [id number] 17:15:50 Test Item Value Reference Range Interpretation [...] (BEAKER) (test code = 1819) 40.0 POTASSIUM-STAT [id number] 17:15:06 Test Item Value Reference Range Interpretation Comments POTASSIUM (BEAKER) (test code = 3.6 meq/L 3.6-5.5 379) SODIUM NA-STAT [id number] 17:15:05 Test Item Value Reference Range Interpretation Comments SODIUM (BEAKER) (test code = 381) 138 meq/L 136-145 LACTIC ACID, [id number] 15:47:03 Test Item Value Reference Range Interpretation Comments LACTATE BLOOD 5.7 mmol/L 0.5-2.2 HH Specimen moder ately ARTERIAL (2) (BEAKER) hemoly zed (test code = 2874) Fiberglass Machine Operator ID - MARZENA MBASIC METABOLIC [id number] 15:45:08 Test Item Value Reference Range Interpretation [...] S NOT APPLICABLE FOR DIALYSIS PATIEN TS. Fiberglass Machine Operator ID - MARZENA [id number] 15:45:07 Test Item Value Reference Range Interpretation Comments PHOSPHORUS (BEAKER) 3.1 mg/dL 2.3-4.7 Specimen slightly (test code = 604) hemolyzed Fiberglass Machine Operator ID - MARZENA [id number] 15:45:06 Test Item Value Reference Range Interpretation Comments MAGNESIUM (BEAKER) 2.9 mg/dL 1.6-2.6 H Specimen slightly (test code = 627) hemolyzed Fiberglass Machine Operator ID - MARZENA MCBC W/PLT COUNT & AUTO [id number] 15:40:58 Test Item Value Reference Range Interpretation [...] 0-1 PERCENT (BEAKER) (test code = 2801) [id number] 15:37:40 Test Item Value Reference Range Interpretation [...] is 2.5-3.5 for patients with mechanical heart valves.[id number] 15:37:05 Test Item Value Reference Range Interpretation Comments Fibrinogen (test code = 3255-7) 466 mg/dl 225-434 H Lab Interpretation (test code = Abnormal 73610-6) [facility] 15:37:05 Test Item Value Reference Range Interpretation Comments Fibrinogen (test code = 3255-7) 466 mg/dl 225-434 H Lab Interpretation (test code = Abnormal 95716-0) [facility] 15:37:05 Test Item Value Reference Range Interpretation Comments FIBRINOGEN LEVEL (BEAKER) (test 466 mg/dl 225-434 H code = 658) PROTHROMBIN TIME/[id number] 15:36:48 Test Item Value Reference Range Interpretation Comments PROTIME (BEAKER) 18.7 seconds 11.9-14.2 H (test code = 759) INR (BEAKER) (test 1.58 See_Comment [Automat ed message] code = 370) The system uTaP generated this result transmitted ref erence range: <=5.90. The reference range was not used to int erpret this result as normal/abnormal . RECOMMENDED COUMADIN/WARFARIN INR THERAPY RANGESSTANDARD DOSE: 2.0 - 3.0 Includes: PROPHYLAXIS for venous thrombosis, systemic embolization; TREATMENT for venous thrombosis and/or pulmonary embolus.HIGH RISK: Target INR is 2.5-3.5 for patients with mechanical heart valves.BLOOD GAS, [id number] 15:31:17 Test Item Value Reference Range Interpretation [...] (test code = 1819) 60.0 OXYGEN SATURATION, [id number] 15:30:38 Test Item Value Reference Range Interpretation Comments O2 SATURATION (MEASURED) (BEAKER) 66.2 % (test code = 1455) RAD, CHEST, 1 VIEW, NON [id number] 15:30:00Reason for exam:->Status post CV Surgery post op day 0Should this be performed at the bedside?->Yes [facility] : 1945 Sex: MFINAL REPORT Chest dated 09/07/2021 COMPARISON: September 05, 2021 Clinical Information: Status post CV Surgery post op day 0 Comment: Heart is enlarged. Pulmonary vasculature is indistinct. Airspace disease is seen bilaterally suggestive of pulmonary edema. Endotracheal tube, nasogastric tube, [place] catheter, and right chest tube are present. No pneumothorax is seen. Signed: Halley Khan Verified Date/Time: 09/07/2021 15:30:25 Reading Location: [facility] [id number] 14:47:00 Test Item Value Reference Range Interpretation Comments CROSSMATCH (test code = COMPATIBLE 2264) Unit ABO (test code = A Pos 5908336) UNIT NUMBER (test code = [id number] 934-0) Status (test code = RETURNED FROM ISSUE 9581612) Blood Bank Product (test RED BLOOD CELLS code = 2263) PRODUCT CODE (test code = P2722W18 933-2) [facility] [id number] 14:47:00 Test Item Value Reference Range Interpretation Comments Unit ABO (test code = A Pos 3780915) UNIT NUMBER (test code = [id number] 934-0) Status (test code = RETURNED FROM ISSUE 6639806) Blood Bank Product (test FFP code = 2263) PRODUCT CODE (test code = A8840K95 933-2) [facility] [id number] 14:47:00 Test Item Value Reference Range Interpretation Comments CROSSMATCH (test code = COMPATIBLE 2264) Unit ABO (test code = A Pos 2208580) UNIT NUMBER (test code = [id number] 934-0) Status (test code = RETURNED FROM ISSUE 3116906) Blood Bank Product (test RED BLOOD CELLS code = 2263) PRODUCT CODE (test code = B6193E10 933-2) [facility] Center[facility] [id number] 14:47:00 Test Item Value Reference Range Interpretation Comments Unit ABO (test code = A Pos 0114136) UNIT NUMBER (test code = [id number] 934-0) Status (test code = RETURNED FROM ISSUE 2100340) Blood Bank Product (test FFP code = 2263) PRODUCT CODE (test code = [id number] 933-2) [facility] Center[facility]OS[facility]20[facility] 14:14:33 Test Item Value Reference Range Interpretation Comments PHOSPHORUS (BEAKER) (test code = 3.5 mg/dL 2.3-4.7 604) Fiberglass Machine Operator ID - BSCBC W/PLT COUNT & AUTO [id number] 13:56:03 Test Item Value Reference Range Interpretation [...] 0-1 PERCENT (BEAKER) (test code = 2801) [id number] 13:40:15 Test Item Value Reference Range Interpretation Comments PARTIAL THROMBOPLASTIN TIME 40.7 seconds 22.5-36.0 H (BEAKER) (test code = 760) [id number] 13:40:14 Test Item Value Reference Range Interpretation Comments FIBRINOGEN LEVEL (BEAKER) (test 374 mg/dl 225-434 code = 658) PROTHROMBIN TIME/[id number] 13:40:08 Test Item Value Reference Range Interpretation Comments PROTIME (BEAKER) 21.5 seconds 11.9-14.2 H (test code = 759) INR (BEAKER) (test 1.89 See_Comment [Automat ed message] code = 370) The system uTaP generated this result transmitted ref erence range: <=5.90. The reference range was not used to int erpret this result as normal/abnormal . RECOMMENDED COUMADIN/WARFARIN INR THERAPY RANGESSTANDARD DOSE: 2.0 - 3.0 Includes: PROPHYLAXIS for venous thrombosis, systemic embolization; TREATMENT for venous thrombosis and/or pulmonary embolus.HIGH RISK: Target INR is 2.5-3.5 for patients with mechanical heart valves.CALCIUM, [id number] 13:38:49 Test Item Value Reference Range Interpretation Comments CALCIUM IONIZED (BEAKER) (test 1.13 mmol/L 1.12-1.27 code = 698) PH, BLOOD (BEAKER) (test code = 7.35 1810) GLUCOSE-STAT [id number] 13:37:55 Test Item Value Reference Range Interpretation Comments GLUCOSE RANDOM (BEAKER) (test code 187 mg/dL 70-110 H = 652) HGB/HCT (H&H) - STAT [id number] 13:37:55 Test Item Value Reference Range Interpretation Comments HEMOGLOBIN (BEAKER) (test code = 8.0 GM/DL 13.0-16.8 L 410) HEMATOCRIT (BEAKER) (test code = 24.0 % 40.0-50.0 L 411) BLOOD GAS, [id number] 13:37:54 Test Item Value Reference Range Interpretation [...] (test code = 1819) 94.0 SODIUM NA-STAT [id number] 13:37:41 Test Item Value Reference Range Interpretation Comments SODIUM (BEAKER) (test code = 381) 135 meq/L 136-145 L POTASSIUM-STAT [id number] 13:37:41 Test Item Value Reference Range Interpretation Comments POTASSIUM (BEAKER) (test code = 3.6 meq/L 3.6-5.5 379) Platelet [id number] 13:30:37 Test Item Value Reference Range Interpretation Comments Platelets (test code 136 See_Comment L [Autom ated = 777-3) message] The system which generated this result transmit dante reference range : 150 - 450 K/CU MM. The reference range was not u sed to interpret th is result as normal/abnormal . EMERSON (test code = EMERSON) Fiberglass Machine Operator ID - [id number] Lab Interpretation Abnormal (test code = 79739-9) [facility] CenterPlatelet [id number] 13:30:37 Test Item Value Reference Range Interpretation Comments Platelets (test code 136 See_Comment L [Autom ated = 777-3) message] The system which generated this result transmit dante reference range : 150 - 450 K/CU MM. The reference range was not u sed to interpret th is result as normal/abnormal . EMERSON (test code = EMERSON) Fiberglass Machine Operator ID - [id number] Lab Interpretation Abnormal (test code = 94021-4) [facility] CenterPLATE[facility] [id number] 13:30:37 Test Item Value Reference Range Interpretation Comments PLATELET COUNT (BEAKER) (test 136 K/CU MM 150-450 L code = 756) Fiberglass Machine Operator ID - [id number], [id number] 13:24:01 Test Item Value Reference Range Interpretation Comments CALCIUM IONIZED (BEAKER) (test 1.23 mmol/L 1.12-1.27 code = 698) PH, BLOOD (BEAKER) (test code = 7.35 1810) HGB/HCT (H&H) - STAT [id number] 13:23:58 Test Item Value Reference Range Interpretation Comments HEMOGLOBIN (BEAKER) (test code = 8.2 GM/DL 13.0-16.8 L 410) HEMATOCRIT (BEAKER) (test code = 24.0 % 40.0-50.0 L 411) GLUCOSE-STAT [id number] 13:23:57 Test Item Value Reference Range Interpretation Comments GLUCOSE RANDOM (BEAKER) (test code 212 mg/dL 70-110 H = 652) BLOOD GAS, [id number] 13:23:56 Test Item Value Reference Range Interpretation [...] (BEAKER) (test code = 1819) 100.0 POTASSIUM-STAT [id number] 13:23:26 Test Item Value Reference Range Interpretation Comments POTASSIUM (BEAKER) (test code = 3.9 meq/L 3.6-5.5 379) SODIUM NA-STAT [id number] 13:23:25 Test Item Value Reference Range Interpretation Comments SODIUM (BEAKER) (test code = 381) 135 meq/L 136-145 L GLUCOSE-STAT [id number] 12:29:15 Test Item Value Reference Range Interpretation Comments GLUCOSE RANDOM (BEAKER) (test code 181 mg/dL 70-110 H = 652) HGB/HCT (H&H) - STAT [id number] 12:29:15 Test Item Value Reference Range Interpretation Comments HEMOGLOBIN (BEAKER) (test code = 8.3 GM/DL 13.0-16.8 L 410) HEMATOCRIT (BEAKER) (test code = 24.0 % 40.0-50.0 L 411) SODIUM NA-STAT [id number] 12:29:14 Test Item Value Reference Range Interpretation Comments SODIUM (BEAKER) (test code = 381) 133 meq/L 136-145 L BLOOD GAS, [id number] 12:29:13 Test Item Value Reference Range Interpretation Comments PH ARTERIAL (BEAKER) (test code = 7.40 7.35-7.45 383) PCO2 ARTERIAL (BEAKER) (test code 38 mm Hg 35-45 = 384) PO2 ARTERIAL (BEAKER) (test code 316 mm Hg 80-90 H = 385) O2 SATURATION ARTERIAL (BEAKER) 99.7 % 96.0-97.0 H (test code = 386) HCO3 ARTERIAL (BEAKER) (test code 24 mmol/L = 388) BASE EXCESS ARTERIAL (BEAKER) -1.9 mmol/L -2.0-3.0 (test code = 387) PATIENT TEMPERATURE (BEAKER) 33.9 (test code = 1818) FIO2 (BEAKER) (test code = 1819) 70.0 POTASSIUM-STAT [id number] 12:23:50 Test Item Value Reference Range Interpretation Comments POTASSIUM (BEAKER) (test code = 5.4 meq/L 3.6-5.5 379) HGB/HCT (H&H) - STAT [id number] 12:19:25 Test Item Value Reference Range Interpretation Comments HEMOGLOBIN (BEAKER) (test code = 7.8 GM/DL 13.0-16.8 L 410) HEMATOCRIT (BEAKER) (test code = 23.0 % 40.0-50.0 L 411) GLUCOSE-STAT [id number] 12:19:24 Test Item Value Reference Range Interpretation Comments GLUCOSE RANDOM (BEAKER) (test code 185 mg/dL 70-110 H = 652) BLOOD GAS, [id number] 12:19:23 Test Item Value Reference Range Interpretation [...] (test code = 1819) 70.0 SODIUM NA-STAT [id number] 12:19:23 Test Item Value Reference Range Interpretation Comments SODIUM (BEAKER) (test code = 381) 132 meq/L 136-145 L POTASSIUM-STAT [id number] 12:19:10 Test Item Value Reference Range Interpretation Comments POTASSIUM (BEAKER) (test code = 5.1 meq/L 3.6-5.5 379) Hemoglobin [id number] 12:09:07 Test Item Value Reference Range Interpretation [...] ADM Lab Interpretation Normal (test code = 70627-4) [facility] CenterHem[facility] [id number] 12:09:07 Test Item Value Reference Range Interpretation [...] ADM Lab Interpretation Normal (test code = 10196-4) [facility] CenterHEMOGLOBIN [id number] 12:09:07 Test Item Value Reference Range Interpretation [...] 5.7- 6.4% indicates increased risk for diabetes (prediabetes)."Fiberglass Machine Operator ID - ADM LACTIC ACID, [id number] 12:07:07 Test Item Value Reference Range Interpretation Comments LACTATE BLOOD 1.0 mmol/L 0.5-2.2 Specimen sligh tly ARTERIAL (2) (BEAKER) hemoly zed (test code = 2874) Fiberglass Machine Operator ID - BSGLUCOSE-STAT [id number] 11:24:11 Test Item Value Reference Range Interpretation Comments GLUCOSE RANDOM (BEAKER) (test code 191 mg/dL 70-110 H = 652) HGB/HCT (H&H) - STAT [id number] 11:24:11 Test Item Value Reference Range Interpretation Comments HEMOGLOBIN (BEAKER) (test code = 7.9 GM/DL 13.0-16.8 L 410) HEMATOCRIT (BEAKER) (test code = 23.0 % 40.0-50.0 L 411) SODIUM NA-STAT [id number] 11:24:10 Test Item Value Reference Range Interpretation Comments SODIUM (BEAKER) (test code = 381) 132 meq/L 136-145 L BLOOD GAS, [id number] 11:24:09 Test Item Value Reference Range Interpretation [...] (test code = 1819) 80.0 LACTIC ACID, [id number] 11:12:30 Test Item Value Reference Range Interpretation Comments LACTATE BLOOD 1.1 mmol/L 0.5-2.2 Specimen sligh tly ARTERIAL (2) (BEAKER) hemoly zed (test code = 2874) Fiberglass Machine Operator ID - BSPOTASSIUM-STAT [id number] 11:12:12 Test Item Value Reference Range Interpretation Comments POTASSIUM (BEAKER) (test code = 4.6 meq/L 3.6-5.5 379) HGB/HCT (H&H) - STAT [id number] 10:59:07 Test Item Value Reference Range Interpretation Comments HEMOGLOBIN (BEAKER) (test code = 8.9 GM/DL 13.0-16.8 L 410) HEMATOCRIT (BEAKER) (test code = 26.0 % 40.0-50.0 L 411) GLUCOSE-STAT [id number] 10:59:06 Test Item Value Reference Range Interpretation Comments GLUCOSE RANDOM (BEAKER) (test code 153 mg/dL 70-110 H = 652) SODIUM NA-STAT [id number] 10:59:05 Test Item Value Reference Range Interpretation Comments SODIUM (BEAKER) (test code = 381) 132 meq/L 136-145 L BLOOD GAS, [id number] 10:59:04 Test Item Value Reference Range Interpretation [...] (BEAKER) (test code = 1819) 80.0 POTASSIUM-STAT [id number] 10:58:12 Test Item Value Reference Range Interpretation Comments POTASSIUM (BEAKER) (test code = 5.3 meq/L 3.6-5.5 379) HGB/HCT (H&H) - STAT [id number] 08:47:12 Test Item Value Reference Range Interpretation Comments HEMOGLOBIN (BEAKER) (test code = 9.5 GM/DL 13.0-16.8 L 410) HEMATOCRIT (BEAKER) (test code = 28.0 % 40.0-50.0 L 411) GLUCOSE-STAT [id number] 08:47:11 Test Item Value Reference Range Interpretation Comments GLUCOSE RANDOM (BEAKER) (test code 121 mg/dL 70-110 H = 652) BLOOD GAS, [id number] 08:47:10 Test Item Value Reference Range Interpretation [...] (BEAKER) (test code = 1819) 95.0 CALCIUM, [id number] 08:46:35 Test Item Value Reference Range Interpretation Comments CALCIUM IONIZED (BEAKER) (test 1.12 mmol/L 1.12-1.27 code = 698) PH, BLOOD (BEAKER) (test code = 7.46 1810) POTASSIUM-STAT [id number] 08:46:14 Test Item Value Reference Range Interpretation Comments POTASSIUM (BEAKER) (test code = 3.7 meq/L 3.6-5.5 379) SODIUM NA-STAT [id number] 08:46:13 Test Item Value Reference Range Interpretation Comments SODIUM (BEAKER) (test code = 381) 135 meq/L 136-145 L [id number] 05:26:11 Test Item Value Reference Range Interpretation Comments TSH (test code = 1.491 See_Comment [Automated 30061-1) message] The system which generated this result transmit dante reference range : 0.350 - 4.940 uIU/mL. The reference range was not used to interpret this result as normal/abnormal . EMERSON (test code = EMERSON) Fiberglass Machine Operator ID - MARZENA Bates Lab Interpretation Normal (test code = 50620-7) [facility] CenterTSH[facility] 05:26:11 Test Item Value Reference Range Interpretation Comments TSH (test code = 1.491 See_Comment [Automated 32994-4) message] The system which generated this result transmit dante reference range : 0.350 - 4.940 uIU/mL. The reference range was not used to interpret this result as normal/abnormal . EMERSON (test code = EMERSON) Fiberglass Machine Operator ID - MARZENA M Lab Interpretation Normal (test code = 78732-9) [facility]SH[facility] 05:26:11 Test Item Value Reference Range Interpretation Comments THYROID STIMULATING HORMONE 1.491 uIU/mL 0.350-4.940 (BEAKER) (test code = 772) Fiberglass Machine Operator ID Patrick OROZCOipid [id number] 04:13:29 Test Item Value Reference Range Interpretation Comments Triglycerides (test 49 mg/dL code = 2571-8) Cholesterol (test code 92 mg/dL = 3-3) HDL (test code = 43 mg/dL 5-9) LDL Calculated (test 39 mg/dL code = 02742-4) EMERSON (test code = EMERSON) Triglyceride Reference Range: Low Risk <150 Borderline 150-199 High Risk 200-499 Very High Risk >=500 Cholesterol Reference Range: Low Risk <200 Borderline 200-239 High Risk >240 HDL Cholesterol Reference Range: Low Risk >=60 High Risk <40 LDL Cholesterol Reference Range: Optimal <100 Near Optimal 100-129 Borderline 130-159 High 160-189 Very High >=190 Fiberglass Machine Operator ID - BSOperator ID - BS [facility] CenterLipid [id number] 04:13:29 Test Item Value Reference Range Interpretation Comments Triglycerides (test 49 mg/dL code = 2571-8) Cholesterol (test code 92 mg/dL = 3-3) HDL (test code = 43 mg/dL 5-9) LDL Calculated (test 39 mg/dL code = 95348-5) EMERSON (test code = EMERSON) Triglyceride Reference Range: Low Risk <150 Borderline 150-199 High Risk 200-499 Very High Risk >=500 Cholesterol Reference Range: Low Risk <200 Borderline 200-239 High Risk >240 HDL Cholesterol Reference Range: Low Risk >=60 High Risk <40 LDL Cholesterol Reference Range: Optimal <100 Near Optimal 100-129 Borderline 130-159 High 160-189 Very High >=190 Fiberglass Machine Operator ID - BSOperator ID - BS [facility] CenterLIPID [id number] 04:13:29 Test Item Value Reference Range Interpretation [...] Borderline 130-159 High 160-189 Very High >=190 Fiberglass Machine Operator ID - BSOperator ID- BSCBC W/PLT COUNT & AUTO [id number] 03:49:38 Test Item Value Reference Range Interpretation [...] (BEAKER) (test code = 2801) COMPREHENSIVE METABOLIC [id number] 03:30:53 Test Item Value Reference Range Interpretation [...] S NOT APPLICABLE FOR DIALYSIS PATIEN TS. Fiberglass Machine Operator ID - [id number] 03:30:53 Test Item Value Reference Range Interpretation Comments MAGNESIUM (BEAKER) (test code = 2.3 mg/dL 1.6-2.6 627) Fiberglass Machine Operator ID - [id number] 03:22:52 Test Item Value Reference Range Interpretation Comments PARTIAL THROMBOPLASTIN TIME 67.2 seconds 22.5-36.0 H (BEAKER) (test code = 760) PROTHROMBIN [id number] 03:21:30 Test Item Value Reference Range Interpretation Comments PROTIME (BEAKER) 15.3 seconds 11.9-14.2 H (test code = 759) INR (BEAKER) (test 1.23 See_Comment [Automat ed message] code = 370) The system uTaP generated this result transmitted ref erence range: <=5.90. The reference range was not used to int erpret this result as normal/abnormal . RECOMMENDED COUMADIN/WARFARIN INR THERAPY RANGESSTANDARD DOSE: 2.0 - 3.0 Includes: PROPHYLAXIS for venous thrombosis, systemic embolization; TREATMENT for venous thrombosis and/or pulmonary embolus.HIGH RISK: Target INR is 2.5-3.5 for patients with mechanical heart valves.BLOOD GAS, [id number] 03:08:40 Test Item Value Reference Range Interpretation [...] (BEAKER) (test code = 1819) 21.0 POCT-GLUCOSE [id number] 21:21:10 Test Item Value Reference Range Interpretation Comments POC-GLUCOSE METER 163 mg/dL 70-110 H : TESTED A T [facility] 6720 ([place]) (test code = DOMINIQUE [facility], 1538) [address]: Fiberglass Machine Operator/Techni bart ID = [id number] for GLORIA VALDERRAMA PROTHROMBIN [id number] 20:13:27 Test Item Value Reference Range Interpretation Comments PROTIME ([place]) 15.3 seconds 11.9-14.2 H (test code = 759) INR ([facility]) (test 1.23 See_Comment [Automat ed message] code = 370) The system uTaP generated this result transmitted ref erence range: <=5.90. The reference range was not used to int erpret this result as normal/abnormal . RECOMMENDED COUMADIN/WARFARIN INR THERAPY RANGESSTANDARD DOSE: 2.0 - 3.0 Includes: PROPHYLAXIS for venous thrombosis, systemic embolization; TREATMENT for venous thrombosis and/or pulmonary embolus.HIGH RISK: Target INR is 2.5-3.5 for patients with mechanical heart valves.[id number] 18:18:05 Test Item Value Reference Range Interpretation Comments PARTIAL THROMBOPLASTIN TIME 65.4 seconds 22.5-36.0 H ([place]) (test code = 760) POCT-GLUCOSE [id number] 17:26:15 Test Item Value Reference Range Interpretation Comments POC-GLUCOSE METER 146 mg/dL 70-110 H : Notified RN/MD: ([place]) (test code = TESTED AT [place] [address] 1538) [facility], [address]: Fiberglass Machine Operator/Techni bart ID = [id number] for LL OYD, TIKEYA POCT-GLUCOSE [id number] 11:21:58 Test Item Value Reference Range Interpretation Comments POC-GLUCOSE METER 142 mg/dL 70-110 H : Notified RN/MD: ([place]) (test code = TESTED AT [place] [address] 1538) [facility], [address]: Fiberglass Machine Operator/Techni bart ID = [id number] for LL OYD, TIKEYA [id number] 11:20:08 Test Item Value Reference Range Interpretation Comments PARTIAL THROMBOPLASTIN TIME 78.4 seconds 22.5-36.0 H (BEAKER) (test code = 760) POCT-GLUCOSE [id number] 08:18:13 Test Item Value Reference Range Interpretation Comments POC-GLUCOSE METER 154 mg/dL 70-110 H : Notified RN/MD: (BEAKER) (test code = TESTED AT [facility] 9476 2179) [facility], [address]: Fiberglass Machine Operator/Techni bart ID = [id number] for GODWIN FLOYD [id number] 06:28:05 Test Item Value Reference Range Interpretation Comments MAGNESIUM (BEAKER) (test code = 2.2 mg/dL 1.6-2.6 627) Fiberglass Machine Operator ID - KEARA WBASIC METABOLIC [id number] 06:28:04 Test Item Value Reference Range Interpretation [...] S NOT APPLICABLE FOR DIALYSIS PATIEN TS. Fiberglass Machine Operator ID - KEARA WCBC W/PLT COUNT & AUTO [id number] 05:57:11 Test Item Value Reference Range Interpretation [...] 0-1 PERCENT (BEAKER) (test code = 2801) [id number] 05:39:02 Test Item Value Reference Range Interpretation Comments PARTIAL THROMBOPLASTIN TIME 55.5 seconds 22.5-36.0 H (BEAKER) (test code = 760) BLOOD GAS, [id number] 05:24:42 Test Item Value Reference Range Interpretation [...] FIO2 (BEAKER) (test code = 1819) 21.0 [id number] 23:08:23 Test Item Value Reference Range Interpretation Comments PARTIAL THROMBOPLASTIN TIME 55.5 seconds 22.5-36.0 H (BEAKER) (test code = 760) POCT-GLUCOSE [id number] 21:56:54 Test Item Value Reference Range Interpretation Comments POC-GLUCOSE METER 108 mg/dL 70-110 : TESTED A T [facility] 6720 (BEAKER) (test code = [facility], 153) [address]: Fiberglass Machine Operator/Techni bart ID = [id number] for Sharon Sol Transesophageal [id number] 21:03:33Ejection FractionSLEH ECHO HEARTLAB [facility]CK[facility]Trans[facility] [id number] 21:03:33Ejection FractionSLEH ECHO HEARTLAB MKCKESSON [facility]PO[facility]SE [id number] 17:16:14 Test Item Value Reference Range Interpretation Comments POC-GLUCOSE METER 112 mg/dL 70-110 H : TESTED A T [facility] 6720 (BEAKER) (test code = [facility], 153) [address]: Fiberglass Machine Operator/Techni bart ID = [id number] for AL ASHERO NICOLENAHED Zelaya B-type Natriuretic Factor (BNP)2021-09-05 17:13:19 Test Item Value Reference Range Interpretation Comments BNP (test code = 22306-5) 427 pg/mL 0-100 H EMERSON (test code = EMERSON) Fiberglass Machine Operator ID - BS Lab Interpretation (test Abnormal code = 01358-1) [facility] (BNP)2021-09-05 17:13:19 Test Item Value Reference Range Interpretation Comments BNP (test code = 84358-8) 427 pg/mL 0-100 H EMERSON (test code = EMERSON) Fiberglass Machine Operator ID - BS Lab Interpretation (test Abnormal code = 56065-9) [facility] CenterB-[facility] NATRIURETIC FACTOR (BNP)2021-09-05 17:13:19 Test Item Value Reference Range Interpretation Comments B-TYPE NATRIURETIC PEPTIDE (BEAKER) 427 pg/mL 0-100 H (test code = 700) Fiberglass Machine Operator ID - WJJBTLJKLQI4001-01-09 17:08:24 Test Item Value Reference Range Interpretation Comments MAGNESIUM (BEAKER) (test code = 2.3 mg/dL 1.6-2.6 627) Fiberglass Machine Operator ID - BSBASIC METABOLIC [id number] 17:08:23 Test Item Value Reference Range Interpretation [...] S NOT APPLICABLE FOR DIALYSIS PATIEN TS. Fiberglass Machine Operator ID - [id number] 16:56:34 Test Item Value Reference Range Interpretation Comments PARTIAL THROMBOPLASTIN TIME 78.6 seconds 22.5-36.0 H ([facility]) (test code = 760) POCT-GLUCOSE [id number] 11:40:10 Test Item Value Reference Range Interpretation Comments POC-GLUCOSE METER 123 mg/dL 70-110 H : [facility] (test code = [facility], 1538) [address]: Fiberglass Machine Operator/Techni bart ID = [id number] for BL HERIBERTO COLBERT [id number] 08:48:28 Test Item Value Reference Range Interpretation Comments PARTIAL THROMBOPLASTIN TIME 50.1 seconds 22.5-36.0 H ([facility]) (test code = 760) POCT-GLUCOSE [id number] 08:33:40 Test Item Value Reference Range Interpretation Comments POC-GLUCOSE METER 83 mg/dL 70-110 : [facility] ([facility] = [facility], 1538) [address]: Fiberglass Machine Operator/Techni bart ID = [id number] for NAHED JOHN Carotid doppler [id number] 07:35:52Ejection FractionSLEH ECHO HEARTLAB [facility] HospitalCarotid doppler pzozoolfi1817-22-07 07:35:52Ejection FractionSLEH ECHO HEARTLAB [facility] 05:35:19 Test Item Value Reference Range Interpretation Comments PARTIAL THROMBOPLASTIN TIME > seconds 22.5-36.0 HH ([facility]) (test code = 760) RAD, CHEST, 1 VIEW, NON [id number] 05:07:00Reason for exam:->Respiratory failureShould this be performed at the bedside?->Yes [facility]ACH : 1945 Sex: MFINAL REPORT RAD, CHEST, 1 VIEW, NON DEPT INDICATION: Respiratory failure COMPARISON: Prior day's exam FINDINGS: Portable frontal view of the chest. IMPRESSION: Lungs and pleura: Bilateral pulmonary opacities are reduced. No pneumothorax.Heart and mediastinum: Stable contours. Additional findings: None. Signed: Link Pak MDReport Verified Date/Time: 09/05/2021 05:07:55 [id number] 05:06:53 Test Item Value Reference Range Interpretation Comments MAGNESIUM (BEAKER) (test code = 2.3 mg/dL 1.6-2.6 627) Fiberglass Machine Operator ID - SHANE GBASIC METABOLIC [id number] 05:06:52 Test Item Value Reference Range Interpretation [...] S NOT APPLICABLE FOR DIALYSIS PATIEN TS. Fiberglass Machine Operator ID - SHANE GVancomycin level, [id number] 05:03:34 Test Item Value Reference Range Interpretation Comments Vancomycin Tr (test code = 7.0 ug/mL 10.0-20.0 L 4092-3) EMERSON (test code = EMERSON) Fiberglass Machine Operator ID - SHANE G Lab Interpretation (test Abnormal code = 09698-7) [facility] CenterVancomycin level, [id number] 05:03:34 Test Item Value Reference Range Interpretation Comments Vancomycin Tr (test code = 7.0 ug/mL 10.0-20.0 L 4092-3) EMERSON (test code = EMERSON) Fiberglass Machine Operator ID - SHANE G Lab Interpretation (test Abnormal code = 72549-9) [facility] CenterVANCOMYCIN LEVEL, [id number] 05:03:34 Test Item Value Reference Range Interpretation Comments VANCOMYCIN TROUGH (BEAKER) (test 7.0 ug/mL 10.0-20.0 L code = 522) Fiberglass Machine Operator ID - SHANE GBLOOD GAS, [id number] 04:54:51 Test Item Value Reference Range Interpretation [...] (BEAKER) (test code = 1819) 21.0 POCT-GLUCOSE [id number] 00:08:56 Test Item Value Reference Range Interpretation Comments POC-GLUCOSE METER 92 mg/dL 70-110 : TESTED A T [facility] 6720 (BEAKER) (test code [facility], = 1538) [address]: Fiberglass Machine Operator/Techni bart ID = [id number] for Christopher Hoskins [id number] 22:59:43 Test Item Value Reference Range Interpretation Comments PARTIAL THROMBOPLASTIN TIME 105.5 seconds 22.5-36.0 H (BEAKER) (test code = 760) POCT-GLUCOSE [id number] 22:43:54 Test Item Value Reference Range Interpretation Comments POC-GLUCOSE METER 131 mg/dL 70-110 H : TESTED A T [facility] 6720 (BEAKER) (test code = [place], 1538) [address]: Fiberglass Machine Operator/Techni bart ID = [id number] for ANDI MIGUEL BASIC METABOLIC [id number] 20:21:48 Test Item Value Reference Range Interpretation [...] S NOT APPLICABLE FOR DIALYSIS PATIEN TS. Fiberglass Machine Operator ID - [id number] 20:21:48 Test Item Value Reference Range Interpretation Comments MAGNESIUM (BEAKER) (test code = 2.4 mg/dL 1.6-2.6 627) Fiberglass Machine Operator ID - DBBLOOD GAS, [id number] 18:19:48 Test Item Value Reference Range Interpretation [...] (BEAKER) (test code = 1819) 21.0 POCT-GLUCOSE [id number] 18:13:29 Test Item Value Reference Range Interpretation Comments POC-GLUCOSE METER 98 mg/dL 70-110 : TESTED A T [facility] 6720 (BEAKER) (test code = [facility], 1538) 317[address]: Fiberglass Machine Operator/Techni bart ID = [id number] for MELANIERAJIV NICOLE, NAHED [id number] 15:50:51 Test Item Value Reference Range Interpretation Comments PARTIAL THROMBOPLASTIN TIME 79.7 seconds 22.5-36.0 H (BEAKER) (test code = 760) [id number] 14:42:01 Test Item Value Reference Range Interpretation Comments PARTIAL THROMBOPLASTIN TIME 196.8 seconds 22.5-36.0 HH (BEAKER) (test code = 760) [id number] 13:31:24 Test Item Value Reference Range Interpretation Comments PARTIAL THROMBOPLASTIN TIME > seconds 22.5-36.0 HH (BEAKER) (test code = 760) POCT-GLUCOSE [id number] 12:32:34 Test Item Value Reference Range Interpretation Comments POC-GLUCOSE METER 96 mg/dL 70-110 : TESTED A T [facility] 6720 (BEAKER) (test code = [facility], 1538) 233[address]: Fiberglass Machine Operator/Techni bart ID = [id number] for MELANIE BRY NICOLE, NAHED POCT-GLUCOSE [id number] 09:39:48 Test Item Value Reference Range Interpretation Comments POC-GLUCOSE METER 93 mg/dL 70-110 : TESTED A T [facility] 6720 (BEAKER) (test code = [facility], 1538) 51530: Fiberglass Machine Operator/Techni bart ID = [id number] for MELANIE BRY CELESTES, NAHED [id number] 05:38:09 Test Item Value Reference Range Interpretation Comments MAGNESIUM (BEAKER) (test code = 2.2 mg/dL 1.6-2.6 627) Fiberglass Machine Operator ID - KAYLEEN LBASIC METABOLIC [id number] 05:38:08 Test Item Value Reference Range Interpretation [...] S NOT APPLICABLE FOR DIALYSIS PATIEN TS. Fiberglass Machine Operator ID - KAYLEEN [id number] 05:37:51 Test Item Value Reference Range Interpretation Comments PARTIAL THROMBOPLASTIN TIME 74.7 seconds 22.5-36.0 H (BEAKER) (test code = 760) BLOOD GAS, [id number] 05:36:41 Test Item Value Reference Range Interpretation [...] 1819) 21.0 CBC W/PLT COUNT & AUTO [id number] 05:07:56 Test Item Value Reference Range Interpretation [...] = 2801) RAD, CHEST, 1 VIEW, NON [id number] 04:31:00Reason for exam:->Respiratory failureShould this be performed at the bedside?->Yes [facility] 1945 Sex: MFINAL REPORT RAD, CHEST, 1 VIEW, NON DEPT INDICATION: Respiratory failure COMPARISON: Prior day's exam FINDINGS: Portable frontal view of the chest. IMPRESSION: Support Lines: NoneLungs and pleura: Reduced airspace and pleural opacities. No pneumothorax.Heart and mediastinum: Stable contours. Additional findings: None. Signed: Link Pak MDReport Verified Date/Time: 09/04/2021 04:31:46 POCT-GLUCOSE [id number] 22:15:29 Test Item Value Reference Range Interpretation Comments POC-GLUCOSE METER 113 mg/dL 70-110 H : TESTED A T [facility] 6720 (BEAKER) (test code = [place], 1538) [address]: Fiberglass Machine Operator/Techni bart ID = [id number] for THEODORA CovingtonTyrelEVAN Barrera [id number] 17:34:10 Test Item Value Reference Range Interpretation Comments Procalcitonin (test code = 0.74 ng/mL <0.05 H 80916-3) EMERSON (test code = EMERSON) SEPSIS RISK (ng/mL)Low: 0.05-0.50Intermedia te: 0.51-2.00High: >=2.01 Lab Interpretation (test Abnormal code = 83780-9) [facility] CenterPnanemZaorggefocqzl4801-95-63 17:34:10 Test Item Value Reference Range Interpretation Comments Procalcitonin (test code = 0.74 ng/mL <0.05 H 27987-0) EMERSON (test code = EMERSON) SEPSIS RISK (ng/mL)Low: 0.05-0.50Intermedia te: 0.51-2.00High: >=2.01 Lab Interpretation (test Abnormal code = 66516-8) [facility] Cen[id number] 17:34:10 Test Item Value Reference Range Interpretation Comments PROCALCITONIN (BEAKER) (test code 0.74 ng/mL <0.05 H = 3036) SEPSIS RISK (ng/mL)Low: 0.05-0.50Intermediate: 0.51-2.00High: >=2.01BASIC METABOLIC [id number] 17:02:45 Test Item Value Reference Range Interpretation [...] S NOT APPLICABLE FOR DIALYSIS PATIEN TS. Fiberglass Machine Operator ID - [id number] 17:02:45 Test Item Value Reference Range Interpretation Comments MAGNESIUM (BEAKER) (test code = 2.3 mg/dL 1.6-2.6 627) Fiberglass Machine Operator ID - DBPOCT-GLUCOSE [id number] 16:39:27 Test Item Value Reference Range Interpretation Comments POC-GLUCOSE METER 102 mg/dL 70-110 : TESTED A T [facility] 6720 (BEAKER) (test code = [place], 1538) [address]: Fiberglass Machine Operator/Techni bart ID = [id number] for Gu icsanto Eduardo BLOOD GAS, [id number] 16:20:14 Test Item Value Reference Range Interpretation [...] 2D Echo W/Doppler(CW/PW/Color)2021-09-03 14:12:53Ejection FractionSLEH ECHO HEARTLAB [facility]/Doppler(CW/PW/Color)2021-09-03 14:12:53Ejection FractionSLEH ECHO HEARTLAB [facility] HospitalMAGNESIUM2022-01-16 07:54:36 Test Item Value Reference Range Interpretation Comments MAGNESIUM (BEAKER) (test code = 2.4 mg/dL 1.6-2.6 627) Fiberglass Machine Operator ID - KAYLEEN LRAD, CHEST, 1 VIEW, NON [id number] 06:39:00Reason for exam:->Respiratory failureShould this be performed at the bedside?->Yes [facility] : 1945 [...] MDReport Verified Date/Time: 09/03/2021 06:39:59 BASIC METABOLIC [id number] 05:41:02 Test Item Value Reference Range Interpretation [...] S NOT APPLICABLE FOR DIALYSIS PATIEN TS. Fiberglass Machine Operator ID - KAYLEEN LBLOOD GAS, [id number] 05:28:49 Test Item Value Reference Range Interpretation [...] = 1819) 50.0 High Sensitivity Troponin I ([facility]/Suraj Only)2021-09-03 05:25:39 Test Item Value Reference Range Interpretation Comments Troponin I HS (test 35 pg/ml See_Comment [[employer] code = 58384-4) message] The system which generated this result transmitted reference range : <=35. The reference range was not used to interpret this result as normal/abnormal . EMERSON (test code = Fiberglass Machine Operator ID - EMERSON) KAYLEEN Truecallerhe HUMAN FACTORS ENGINEER STAT High Sensitivity Troponin-I results should be used in conjunction with other diagnostic information such as ECG, clinical observations and information, and patient symptoms to aid in the diagnosis of [place]. Lab Interpretation Normal (test code = 16796-8) [facility] CenterHigh Sensitivity Troponin [facility] ([facility]/Suraj Only) 2021-09-03 05:25:39 Test Item Value Reference Range Interpretation Comments Troponin I HS (test 35 pg/ml See_Comment [Mambua dante code = 16393-4) message] The system which generated this result transmitted reference range : <=35. The reference range was not used to interpret this result as normal/abnormal . EMERSON (test code = Fiberglass Machine Operator ID - EMERSON) KAYLEEN Truecallerhe HUMAN FACTORS ENGINEER STAT High Sensitivity Troponin-I results should be used in conjunction with other diagnostic information such as ECG, clinical observations and information, and patient symptoms to aid in the diagnosis of [place]. Lab Interpretation Normal (test code = 13011-0) [facility] CenterHIGH SENSITIVITY TROPONIN [id number] 05:25:39 Test Item Value Reference Range Interpretation Comments HIGH SENSITIVITY 35 pg/ml See_Comment [Automated message] TROPONIN I (test code = The system which [id number]) generated this result transmitted ref erence range: <=35. Th e reference range was not used to int erpret this result as normal/abnormal . Fiberglass Machine Operator ID - KAYLEEN LThe HUMAN FACTORS ENGINEER STAT High Sensitivity Troponin-I results should be used in conjunction with other diagnostic information such as ECG, clinical observations and information, and patient symptoms to aid in the diagnosis of LA.B-TYPE NATRIURETIC FACTOR (BNP)2021-09-03 05:25:38 Test Item Value Reference Range Interpretation Comments B-TYPE NATRIURETIC PEPTIDE 1522 pg/mL 0-100 H (BEAKER) (test code = 700) Fiberglass Machine Operator ID - KAYLEEN LLactic acid, [id number] 05:08:12 Test Item Value Reference Range Interpretation Comments Lactate, Venous (test code 0.98 mmol/L 0.50-2.20 = 2872) EMERSON (test code = EMERSON) Fiberglass Machine Operator ID - KAYLEEN L Lab Interpretation (test Normal code = 77097-7) [facility] CenterLactic acid, [id number] 05:08:12 Test Item Value Reference Range Interpretation Comments Lactate, Venous (test code 0.98 mmol/L 0.50-2.20 = 2872) EMERSON (test code = EMERSON) Fiberglass Machine Operator ID - KAYLEEN L Lab Interpretation (test Normal code = 87381-0) [facility] CenterLACTIC ACID, [id number] 05:08:12 Test Item Value Reference Range Interpretation Comments LACTATE BLOOD VENOUS (2) (BEAKER) 0.98 mmol/L 0.50-2.20 (test code = 2872) Fiberglass Machine Operator ID - KAYLEEN LCBC W/PLT COUNT & AUTO [id number] 04:46:58 Test Item Value Reference Range Interpretation [...] (test code = 2801) HIGH SENSITIVITY TROPONIN [id number] 23:24:52 Test Item Value Reference Range Interpretation Comments HIGH SENSITIVITY 60 pg/ml See_Comment H [Automated message] TROPONIN I (test code = The system which [id number]) generated this result transmitted ref erence range: <=35. Th e reference range was not used to int erpret this result as normal/abnormal . Fiberglass Machine Operator ID - KAYLEEN LThe HUMAN FACTORS ENGINEER STAT High Sensitivity Troponin-I results should be used in conjunction with other diagnostic information such as ECG, clinical observations and information, and patient symptoms to aid in the diagnosis of LA.LACTIC ACID, [id number] 23:16:31 Test Item Value Reference Range Interpretation Comments LACTATE BLOOD VENOUS 2.39 mmol/L 0.50-2.20 H Specime n slightly (2) (BEAKER) (test hemolyzed code = 0824) Fiberglass Machine Operator ID - KAYLEEN LBASIC METABOLIC [id number] 20:00:02 Test Item Value Reference Range Interpretation [...] 697) EGFR (BEAKER) (test 47 mL/min/1.73 ESTIMA DANTE GFR IS code = 1092) sq m NOT ACCURATE CREATININE CLEARANCE IN PREDICTING GLOMERULAR FILTRATION RATE . ESTIMATED GFR I S NOT APPLICABLE FOR DIALYSIS PATIEN TS. Fiberglass Machine Operator ID - DBLACTIC ACID, [id number] 19:50:59 Test Item Value Reference Range Interpretation Comments LACTATE BLOOD VENOUS 3.70 mmol/L 0.50-2.20 H Specime n slightly (2) (BEAKER) (test hemolyzed code = 3471) Fiberglass Machine Operator ID - AUHYEXLDVVPDPTM5752-89-17 18:48:36 Test Item Value Reference Range Interpretation Comments PROCALCITONIN (BEAKER) (test code = < ng/mL <0.05 3036) SEPSIS RISK (ng/mL)Low: 0.05-0.50Intermediate: 0.51-2.00High: >=2.01B-TYPE NATRIURETIC FACTOR (BNP)2021-09-02 18:06:28 Test Item Value Reference Range Interpretation Comments B-TYPE NATRIURETIC PEPTIDE (BRAXTON) 801 pg/mL 0-100 H (test code = 700) Fiberglass Machine Operator ID - DBHIGH SENSITIVITY TROPONIN [id number] 18:06:07 Test Item Value Reference Range Interpretation Comments HIGH SENSITIVITY 10 pg/ml See_Comment [Automated message] TROPONIN I (test code = The system which [id number]) generated this result transmitted ref erence range: <=35. Th e reference range was not used to int erpret this result as normal/abnormal . Fiberglass Machine Operator ID - DBThe HUMAN FACTORS ENGINEER STAT High Sensitivity Troponin-I results should be used in conjunctionwith other diagnostic information such as ECG, clinical observations and information, and patient symptoms to aid in the diagnosis of LA.LACTIC ACID, [id number] 18:03:35 Test Item Value Reference Range Interpretation Comments LACTATE BLOOD 5.0 mmol/L 0.5-2.2 HH Specimen sligh tly ARTERIAL (2) (BRAXTON) hemoly zed (test code = 2874) Fiberglass Machine Operator ID - DBRAD, CHEST, 1 VIEW, NON [id number] 18:01:00Reason for exam:- >dyspneaShould this be performed at the bedside?->Yes [facility]AL : 1945 Sex: MFINAL REPORT RAD, CHEST, 1 VIEW, NON DEPT INDICATION: dyspnea COMPARISON: 07/03/21 FINDINGS: Portable frontal view of the chest. IMPRESSION: Support Lines: Overlying leads Lungs andpleura: Bibasilar airspace disease and small bilateral effusions, compatible with mild volume overload. No significant pneumothorax. Heart and mediastinum: Normal contours. Additional findings: None. Signed: Gaby Cordero Verified Date/Time: 09/02/2021 18:01:04 -[id number] 17:41:20 Test Item Value Reference Range Interpretation Comments POC-Glucose (test code = 245 mg/dL 70-110 H : T ESTED AT [facility] 1855) [address] [place] [address], 7[address] 30: Fiberglass Machine Operator/Techni bart ID = [id number] for RIA, NAVDEEP Lab Interpretation (test Abnormal code = 66343-4) [facility] CenterPOCT-[id number] 17:41:20 Test Item Value Reference Range Interpretation Comments POC-Glucose (test code = 245 mg/dL 70-110 H : T ESTED AT [facility] 1855) [address] [place] [address], 770 30: Fiberglass Machine Operator/Techni bart ID = [id number] for RIA, NAVDEEP Lab Interpretation (test Abnormal code = 96290-2) [facility] CenterPOCT-IHJOCWU1156-03-11 17:41:20 Test Item Value Reference Range Interpretation Comments POC-GLUCOSE (BEAKER) 245 mg/dL 70-110 H : TESTE D AT [facility] 6720 (test code = 1855) [facility], [address]: Fiberglass Machine Operator/Techni bart ID = [id number] for PAIG E, NAVDEEP ALXU-[id number] 17:41:19 Test Item Value Reference Range Interpretation Comments POC-Hemoglobin (test code 12.2 g/dL 13.0-16.8 L : TESTED AT [facility] = 1856) [address] [place] [address], 770 30: Fiberglass Machine Operator/Techni bart ID = [id number] for RIA, NAVDEEP Lab Interpretation (test Abnormal code = 61380-3) [facility] CenterAgxbpdUULJ-XUYGREWCJO2056-59-15 17:41:19 Test Item Value Reference Range Interpretation Comments POC-Hematocrit (test code 36 % 40-50 L : = 1857) Fiberglass Machine Operator/Techni bart ID = [id number] for RIA, NAVDEEP Lab Interpretation (test Abnormal code = 73089-5) [facility] CenterWpooiqVOSZ-ERZUYVERKT0818-10-15 17:41:19 Test Item Value Reference Range Interpretation Comments POC-Hemoglobin (test code 12.2 g/dL 13.0-16.8 L : TESTED AT [facility] = 1856) [address] [facility], [address]: Fiberglass Machine Operator/Techni bart ID = [id number] for RIA, NAVDEEP Lab Interpretation (test Abnormal code = 05898-2) [facility] CenterCjzeggEJDY-[id number] 17:41:19 Test Item Value Reference Range Interpretation Comments POC-Hematocrit (test code 36 % 40-50 L : = 1857) Fiberglass Machine Operator/Techni bart ID = [id number] for RIA, NAVDEEP Lab Interpretation (test Abnormal code = 25824-2) [facility]-[id number] 17:41:19 Test Item Value Reference Range Interpretation Comments POC-HEMOGLOBIN 12.2 g/dL 13.0-16.8 L : TESTED AT [facility] 6720 (BEAKER) (test code [facility], = 1856) [address]: Fiberglass Machine Operator/Techni bart ID = [id number] for PAIG E, NAVDEEP XGGF-[id number] 17:41:19 Test Item Value Reference Range Interpretation Comments POC-HEMATOCRIT 36 % 40-50 L : Fiberglass Machine Operator/Te chnician ID = (BEAKER) (test code = 224838 for RIA, NAVDEEP 1857) JBB-Nowcamwpq9822-50-15 17:41:18 Test Item Value Reference Range Interpretation Comments POC-Potassium (test code 4.6 meq/L 3.6-5.5 : T ESTED AT [facility] = 1540) [address] [facility], 770 30: Fiberglass Machine Operator/Techni bart ID = [id number] for RIA, NAVDEEP Lab Interpretation (test Normal code = 96303-7) [facility] CenterPOC-Fzecbspvn3232-58-67 17:41:18 Test Item Value Reference Range Interpretation Comments POC-Potassium (test code 4.6 meq/L 3.6-5.5 : T ESTED AT [facility] = 1540) 6720 [facility], 770 30: Fiberglass Machine Operator/Techni bart ID = [id number] for RIA, NAVDEEP Lab Interpretation (test Normal code = 44990-6) [facility]-QIGBNYMPC8743-01-94 17:41:18 Test Item Value Reference Range Interpretation Comments POC-POTASSIUM 4.6 meq/L 3.6-5.5 : TESTED AT [facility] 67 (BEAKER) (test code [facility], = 1540) [address]: Fiberglass Machine Operator/Techni bart ID = [id number] for PAIG E, NAVDEEP QKX-Kgdfoq6338-31-15 17:41:13 Test Item Value Reference Range Interpretation Comments POC-Sodium (test code = 133 meq/L 135-148 L : TE STED AT [facility] 1542) [address] [place] [address], [address]: Fiberglass Machine Operator/Techni bart ID = [id number] for RIA, NAVDEEP Lab Interpretation (test Abnormal code = 91028-7) [facility]-Ajamba0908-48-21 17:41:13 Test Item Value Reference Range Interpretation Comments POC-Sodium (test code = 133 meq/L 135-148 L : TE STED AT [facility] 1542) 6720 [facility], 7[address] 30: Fiberglass Machine Operator/Techni bart ID = [id number] for RIA, NAVDEEP Lab Interpretation (test Abnormal code = 02676-5) [facility]-CHYOTI5488-14-48 17:41:13 Test Item Value Reference Range Interpretation Comments POC-SODIUM (BEAKER) 133 meq/L 135-148 L : TESTED AT [facility] 6720 (test code = 1542) [facility], [address]: Fiberglass Machine Operator/Techni bart ID = [id number] for PAIG E, NAVDEEP POC-Blood gases, [id number] 17:41:12 Test Item Value Reference Range Interpretation Comments Temp. Celsius-POC (test code = 1834) FIO2-POC (test code = 1835) pH, Arterial-POC (test 7.376 7.350-7.450 code = 2744-1) PCO2, Arterial-POC 30.6 See_Comment L If pO2 [...] tomated message] code = 1838) The system uTaP generated this result transmit dante reference range : 80.0 - 90.0 mm Hg. The reference r mayra was not used to interpret this result as normal/abnormal . SO2, Arterial-POC (test 92.0 % 96.0-97.0 L code = 1839) HCO3, Arterilal-POC 17.9 meq/L 21.0-29.0 L (test code = 1840) BE, Arterial-POC (test -7.0 meq/L -2.0-3.0 L : [facility] code = 1841) [address] [facility] [place], [address]: Fiberglass Machine Operator/Techni bart ID = [id number] for NAVDEEP ROLLINS Lab Interpretation Abnormal (test code = 28995-0) [facility]-Blood gases, [id number] 17:41:12 Test Item Value Reference Range Interpretation [...] tomated message] code = 1838) The system uTaP generated this result transmit dante reference range : 80.0 - 90.0 mm Hg. The reference r mayra was not used to interpret this result as normal/abnormal . SO2, Arterial-POC (test 92.0 % 96.0-97.0 L code = 1839) HCO3, Arterilal-POC 17.9 meq/L 21.0-29.0 L (test code = 1840) BE, Arterial-POC (test -7.0 meq/L -2.0-3.0 L : [facility] code = 1841) [address] [facility], [address]: Fiberglass Machine Operator/Techni bart ID = [id number] for RIA, NAVDEEP Lab Interpretation Abnormal (test code = 51808-6) [facility], [id number] 17:41:12 Test Item Value Reference Range Interpretation [...] AT [facility] [address] [facility], (BEAKER) (test code 49139: = 1841) Fiberglass Machine Operator/Techni bart ID = [id number] for PAIG E, NAVDEEP CT, CHEST, WITH [id number] 16:35:00Unlisted Reason for Exam - Click Yes and Enter Reason Below->YesUnlisted Reason for Exam->rapid 40 lb wt loss, concern for malignancy [facility] 1945 Sex: MFINAL [...] MDReport Verified Date/Time: 09/02/2021 16:35:31 Reading Location: [facility] C013Y CT Body Reading Room BASIC METABOLIC [id number] 05:54:20 Test Item Value Reference Range Interpretation [...] S NOT APPLICABLE FOR DIALYSIS PATIEN TS. Fiberglass Machine Operator ID - SHANE GCBC W/PLT COUNT & AUTO [id number] 05:27:33 Test Item Value Reference Range Interpretation [...] 0-1 PERCENT (BEAKER) (test code = 2801) [id number] 18:20:35 Test Item Value Reference Range Interpretation Comments Ferritin (test code = 36.01 ng/mL 5.00-275.00 2276-4) EMERSON (test code = EMERSON) Fiberglass Machine Operator ID - PIAYA L Lab Interpretation (test Normal code = 82529-1) [facility] 18:20:35 Test Item Value Reference Range Interpretation Comments Ferritin (test code = 36.01 ng/mL 5.00-275.00 2276-4) EMERSON (test code = EMERSON) Fiberglass Machine Operator ID - KAYLEEN L Lab Interpretation (test Normal code = 43041-0) [facility]ERRITIN2022-01-14 18:20:35 Test Item Value Reference Range Interpretation Comments FERRITIN (BEAKER) (test code = 36.01 ng/mL 5.00-275.00 361) Fiberglass Machine Operator ID - KAYLEEN Ardon, TIBC, % sat. (without ferritin)2021-09-01 18:00:19 Test Item Value Reference Range Interpretation Comments Iron (test code = 2498-4) 14.0 ug/dL 40.0-160.0 L TIBC (test code = 2500-7) 355 ug/dL 250-450 Iron % Saturation (test 4 % 20-55 L code = 2502-3) EMERSON (test code = EMERSON) Fiberglass Machine Operator ID - KAYLEEN L Lab Interpretation (test Abnormal code = 38750-3) [facility] Center[facility], TIBC, % sat. (without ferritin)2021-09-01 18:00:19 Test Item Value Reference Range Interpretation Comments Iron (test code = 2498-4) 14.0 ug/dL 40.0-160.0 L TIBC (test code = 2500-7) 355 ug/dL 250-450 Iron % Saturation (test 4 % 20-55 L code = 2502-3) EMERSON (test code = EMERSON) Fiberglass Machine Operator ID - KAYLEEN L Lab Interpretation (test Abnormal code = 00866-7) [facility] CenterIRON, TIBC, % SAT. (WITHOUT FERRITIN)2021-09-01 18:00:19 Test Item Value Reference Range Interpretation Comments IRON (BEAKER) (test code = 547) 14.0 ug/dL 40.0-160.0 L TOTAL IRON BINDING CAPACITY 355 ug/dL 250-450 (BEAKER) (test code = 769) IRON % SATURATION (2) (BEAKER) 4 % 20-55 L (test code = 2590) Fiberglass Machine Operator ID - KAYLEEN L2D Echo W/Doppler(CW/PW/Color)2021-09-01 17:31:53Ejection FractionSLEH ECHO [facility]ARTLAB [facility] W/Doppler(CW/PW/Color)2021-09-01 17:31:53Ejection FractionSLEH ECHO HEARTLAB MKCKESSON CPACSCHI [facility] HospitalFL, ESOPH, SWALLOW FUNCTION, WITH CINE OR [id number] 12:11:00Reason for exam:->TIMED BARIUIM SWALLOW at 1, 5 and 10 minutes with tablet for dysphagia w/ neg [facility]GD [facility] : 1945 Sex: MFINAL REPORT Timed barium [...] time: None Number of images: 8 Signed: Arin Espana Verified Date/Time: 09/01/2021 12:11:08 Reading Location: [address] Consult Reading Room HEPATIC FUNCTION [id number] 07:23:40 Test Item Value Reference Range Interpretation [...] (test code = 45 U/L 6-55 347) Fiberglass Machine Operator ID Patrick BEYER [id number] 07:23:39 Test Item Value Reference Range Interpretation Comments MAGNESIUM (BEAKER) (test code = 2.3 mg/dL 1.6-2.6 627) Fiberglass Machine Operator ID - KAYLEEN GEXABPMCFVT4059-18-05 07:23:39 Test Item Value Reference Range Interpretation Comments PHOSPHORUS (BEAKER) (test code = 3.8 mg/dL 2.3-4.7 604) Fiberglass Machine Operator ID - KAYLEEN LBASIC METABOLIC [id number] 07:23:38 Test Item Value Reference Range Interpretation [...] S NOT APPLICABLE FOR DIALYSIS PATIEN TS. Fiberglass Machine Operator ID - KAYLEEN LTSH/Free T4 If [id number] 06:55:05 Test Item Value Reference Range Interpretation Comments TSH (test code = 1.112 See_Comment [Automated 18431-4) message] The system which generated this result transmit dante reference range : 0.350 - 4.940 uIU/mL. The reference range was not used to interpret this result as normal/abnormal . EMERSON (test code = EMERSON) Fiberglass Machine Operator ID - KAYLEEN L Lab Interpretation Normal (test code = 54945-0) [facility] CenterTSH/Free T4 If Uidcrxwly7926-06-39 06:55:05 Test Item Value Reference Range Interpretation Comments TSH (test code = 1.112 See_Comment [Automated 29957-4) message] The system which generated this result transmit dante reference range : 0.350 - 4.940 uIU/mL. The reference range was not used to interpret this result as normal/abnormal . EMERSON (test code = EMERSON) Fiberglass Machine Operator ID - KAYLEEN L Lab Interpretation Normal (test code = 03174-2) [facility] CenterTS/FREE T4 IF [id number] 06:55:05 Test Item Value Reference Range Interpretation Comments THYROID STIMULATING HORMONE 1.112 uIU/mL 0.350-4.940 (BEAKER) (test code = 772) Fiberglass Machine Operator ID - KAYLEEN LPROTHROMBIN TIME/DAS4803-00-14 06:24:18 Test Item Value Reference Range Interpretation Comments PROTIME (BEAKER) 17.9 seconds 11.9-14.2 H (test code = 759) INR (BEAKER) (test 1.51 See_Comment [Automat ed message] code = 370) The system uTaP generated this result transmitted ref erence range: <=5.90. The reference range was not used to int erpret this result as normal/abnormal . RECOMMENDED COUMADIN/WARFARIN INR THERAPY RANGESSTANDARD DOSE: 2.0 - 3.0 Includes: PROPHYLAXIS for venous thrombosis, systemic embolization; TREATMENT for venous thrombosis and/or pulmonary embolus.HIGH RISK: Target INR is 2.5-3.5 for patients with mechanical heart valves.CBC W/PLT COUNT & AUTO [id number] 06:22:43 Test Item Value Reference Range Interpretation [...] SARS-Co V-2 (test code = target nucleic 50577-0) acids are not detected in thi s [...] om SARS-CoV-2 in a nasopharyngeal swab specimen colle dante from individual s suspected of COVID-19 [...] revoked sooner. Fact Sheet for Healthcare Providers: https://www.[employer]/Documents/Xp ert%20Xpress%20SAR S%20CoV-2/Fact%20S heets/302-3802%20S ARS-COV-2%20HEALTH CARE%20PROVIDERS%2 0FACT%20SHEET.pdf Fact Sheet for Healthcare Patients: https://www.[employer]/Documents/Xp ert%20Xpress%20SAR S%20CoV-2/Fact%20S heets/302-3801%20S ARS-COV-2%20PATIEN T%20FACT%20SHEET.p df Lab Interpretation Normal (test code = 80429-5) [facility]pt[facility] ONLY)2021-08-31 15:45:18 Test Item Value Reference Interpretation Comments Range SARS-COV2/RT-PCR Negative Negative The SARS-Co V-2 (test code = target nucleic 77282-0) acids are not detected in thi s [...] revoked sooner. Fact Sheet for Healthcare Providers: https://www.[employer]/Documents/Xp ert%20Xpress%20SAR S%20CoV-2/Fact%20S heets/302-3802%20S ARS-COV-2%20HEALTH CARE%20PROVIDERS%2 0FACT%20SHEET.pdf Fact Sheet for Healthcare Patients: https://www.[employer]/Documents/Xp ert%20Xpress%20SAR S%20CoV-2/Fact%20S heets/302-3801%20S ARS-COV-2%20PATIEN T%20FACT%20SHEET.p df Lab Interpretation Normal (test code = 12967-9) [facility] ([facility])2021-08-31 15:45:18 Test Item Value Reference Range Interpretation Comments SARS-COV2/RT-PCR Negative Negative The SARS-Co V-2 target (test code = nucleic acids a re not 7848415) detected in thi s specimen. Negative result [...] revoked sooner. Fact Sheet for Healthcare Providers: https://www.[employer]/Documents/Xpert%20Xpress%20SARS%20CoV-2/Fact%20Sheets/3023802%98OBOE-GBY-4%20 HEALTHCARE%20PROVIDERS%20FACT%20SHEET.pdf Fact Sheet for Healthcare Patients: https://www.[employer]/Documents/Xpert%20Xp ress%20SARS%20CoV-2/Fact%20Sheets/3023801%67MWLQ-NXN-4%20PATIENT%20FACT%20SHEET .pdfHIGH SENSITIVITY TROPONIN [id number] 13:23:34 Test Item Value Reference Range Interpretation Comments HIGH SENSITIVITY 10 pg/ml See_Comment [Automated message] TROPONIN I (test code = The system which 6860318) generated this result transmitted ref erence range: <=35. Th e reference range was not used to int erpret this result as normal/abnormal . Fiberglass Machine Operator ID - ADMINThe HUMAN FACTORS ENGINEER STAT High Sensitivity Troponin-I results should be used in conjunction with other diagnostic information such as ECG, clinical observations and information, and patientsymptoms to aid in the diagnosis of LA. [id number] 13:16:30 Test Item Value Reference Range Interpretation Comments PARTIAL THROMBOPLASTIN TIME 41.6 seconds 22.5-36.0 H (BEAKER) (test code = 760) BASIC METABOLIC [id number] 13:16:09 Test Item Value Reference Range Interpretation [...] S NOT APPLICABLE FOR DIALYSIS PATIEN TS. Fiberglass Machine Operator ID - ADMINPROTHROMBIN TIME/[id number] 13:15:51 Test Item Value Reference Range Interpretation Comments PROTIME (BEAKER) 21.2 seconds 11.9-14.2 H (test code = 759) INR (BEAKER) (test 1.86 See_Comment [Automat ed message] code = 370) The system uTaP generated this result transmitted ref erence range: <=5.90. The reference range was not used to int erpret this result as normal/abnormal . RECOMMENDED COUMADIN/WARFARIN INR THERAPY RANGESSTANDARD DOSE: 2.0 - 3.0 Includes: PROPHYLAXIS for venous thrombosis, systemic embolization; TREATMENT for venous thrombosis and/or pulmonary embolus.HIGH RISK: Target INR is 2.5-3.5 for patients with mechanical heart valves.LACTIC ACID, [id number] 13:12:46 Test Item Value Reference Range Interpretation Comments LACTATE BLOOD VENOUS (2) (BEAKER) 1.73 mmol/L 0.50-2.20 (test code = 2872) Fiberglass Machine Operator ID - ADMINCBC W/PLT COUNT & AUTO [id number] 12:54:05 Test Item Value Reference Range Interpretation [...] PERCENT (BEAKER) (test code = 2801) [place], [id number] 11:34:00Gastrografin studyReason for exam:->POST-OP PROBLEMpost endocscopy 1 month ago [facility] 1945 Sex: MFINAL [...] [place] Verified Date/Time: 07/04/2021 11:34:49 Reading Location: [address] Consult Reading Room BASIC METABOLIC [id number] 04:39:36 Test Item Value Reference Range Interpretation [...] (test code = 697) EGFR (BRAXTON) (test 85 mL/min/1.73 ESTIMA DANTE GFR IS code = 1092) sq m NOT ACCURATE CREATININE CLEARANCE IN PREDICTING GLOMERULAR FILTRATION RATE . ESTIMATED GFR I S NOT APPLICABLE FOR DIALYSIS PATIEN TS. Fiberglass Machine Operator ID - MARZENA MSARS-COV2/RT-PCR ([facility])2021-07-03 17:50:45 Test Item Value Reference Range Interpretation Comments SARS-COV2/RT-PCR Negative Negative The SARS-Co V-2 target (test code = nucleic acids a re not 7261820) detected in thi s specimen. Negative result [...] revoked sooner. Fact Sheet for Healthcare Providers: https://www.[employer]/Documents/Xpert%20Xpress%20SARS%20CoV-2/Fact%20Sheets/302-4422%97NSQM-AIP-3%20 HEALTHCARE%20PROVIDERS%20FACT%20SHEET.pdf Fact Sheet for Healthcare Patients: https://www.[employer]/Documents/Xpert%20Xp ress%20SARS%20CoV-2/Fact%20Sheets/302-3801%83GEEV-KZD-4%20PATIENT%20FACT%20SHEET .pdfD-dimer, [id number] 17:04:25 Test Item Value Reference Range Interpretation Comments D-Dimer, Quant (test <0.27 See_Comment [Autom ated code = 48808-0) message] The system which generated this result [...] range. Lab Interpretation Normal (test code = 89853-1) [facility] CenterD-[facility]er, zejmmqnoghle9097-02-79 17:04:25 Test Item Value Reference Range Interpretation Comments D-Dimer, Quant (test <0.27 See_Comment [Autom ated code = 63306-0) message] The system which generated this result [...] range. Lab Interpretation Normal (test code = 11636-5) [facility] CenterD-[id number] 17:04:25 Test Item Value Reference Range Interpretation [...] of thrombosis is within 95-100% range.BLOOD GAS, [id number] 16:22:57 Test Item Value Reference Range Interpretation [...] code = 1819) 21.0 RAD, CHEST, 2 [id number] 14:40:00Reason for exam:->CHEST PAIN since endoscopy a month agopost endocscopy 1 month [facility] 1945 Sex: MFINAL REPORT EXAM: Chest one view COMPARISON: May 15, 2021 CLINICAL HISTORY: Chest pain FINDINGS: Minimal blunting of bilateral posterior costophrenic sulci are noted which may represent small effusions. The cardiac size remains enlarged. There is no evidence of pulmonary consolidation or pneumothorax. The regional osseous structures are unremarkable. Signed: Mati Ackerman MDReport Verified Date/Time: 07/03/2021 14:40:03 [id number] 14:12:25 Test Item Value Reference Range Interpretation Comments Lipase (test code = 3040-3) 22 U/L 8-78 EMERSON (test code = EMERSON) Fiberglass Machine Operator ID - DB Lab Interpretation (test Normal code = 50274-2) [facility] CenterLipase2021-11-15 14:12:25 Test Item Value Reference Range Interpretation Comments Lipase (test code = 3040-3) 22 U/L 8-78 EMERSON (test code = EMERSON) Fiberglass Machine Operator ID - DB Lab Interpretation (test Normal code = 31462-2) [facility] CenterLIPASE2021-11-15 14:12:25 Test Item Value Reference Range Interpretation Comments LIPASE (BEAKER) (test code = 749) 22 U/L 8-78 Fiberglass Machine Operator ID - DBCOMPREHENSIVE METABOLIC [id number] 14:12:24 Test Item Value Reference Range Interpretation [...] S NOT APPLICABLE FOR DIALYSIS PATIEN TS. Fiberglass Machine Operator ID - DBHIGH SENSITIVITY TROPONIN [id number] 14:10:43 Test Item Value Reference Range Interpretation Comments HIGH SENSITIVITY 7 pg/ml See_Comment [Automated message] TROPONIN I (test code = The system which 1149284) generated this result transmitted ref erence range: <=35. Th e reference range was not used to interpr et this result as normal/abnormal . Fiberglass Machine Operator ID - RMThe HUMAN FACTORS ENGINEER STAT High Sensitivity Troponin-I results should be used in conjunctionwith other diagnostic information such as ECG, clinical observations and information, and patient symptoms to aid in the diagnosis of LA.B-TYPE NATRIURETIC FACTOR (BNP)2021-07-03 14:09:26 Test Item Value Reference Range Interpretation Comments B-TYPE NATRIURETIC PEPTIDE (BEAKER) 515 pg/mL 0-100 H (test code = 700) Fiberglass Machine Operator ID - RMCBC W/PLT COUNT & AUTO [id number] 13:39:07 Test Item Value Reference Range Interpretation [...] (BEAKER) (test code = 2801) HEMOGLOBIN AND [id number] 05:07:16 Test Item Value Reference Range Interpretation Comments HEMOGLOBIN (BEAKER) (test code = 7.9 GM/DL 13.7-17.5 L 410) HEMATOCRIT (BEAKER) (test code = 26.4 % 40.1-51.0 L 411) Fiberglass Machine Operator ID - [id number] AND GMWBWVMPKF6587-57-84 18:44:57 Test Item Value Reference Range Interpretation Comments HEMOGLOBIN (BEAKER) (test code = 8.7 GM/DL 13.7-17.5 L 410) HEMATOCRIT (BEAKER) (test code = 29.7 % 40.1-51.0 L 411) Fiberglass Machine Operator ID - 6000HEMOGLOBIN AND [id number] 11:29:37 Test Item Value Reference Range Interpretation Comments HEMOGLOBIN (BEAKER) (test code = 8.3 GM/DL 13.7-17.5 L 410) HEMATOCRIT (BEAKER) (test code = 28.5 % 40.1-51.0 L 411) Fiberglass Machine Operator ID - [id number] AND [id number] 04:51:37 Test Item Value Reference Range Interpretation Comments HEMOGLOBIN (BEAKER) (test code = 7.9 GM/DL 13.7-17.5 L 410) HEMATOCRIT (BEAKER) (test code = 26.9 % 40.1-51.0 L 411) Fiberglass Machine Operator ID - 6000HEMOGLOBIN AND [id number] 16:42:26 Test Item Value Reference Range Interpretation Comments HEMOGLOBIN (BEAKER) (test code = 8.6 GM/DL 13.7-17.5 L 410) HEMATOCRIT (BEAKER) (test code = 29.4 % 40.1-51.0 L 411) Fiberglass Machine Operator ID - 6000BASIC METABOLIC [id number] 09:04:40 Test Item Value Reference Range Interpretation [...] S NOT APPLICABLE FOR DIALYSIS PATIEN TS. Fiberglass Machine Operator ID - ROSIANGHEMOGLOBIN AND [id number] 08:41:52 Test Item Value Reference Range Interpretation Comments HEMOGLOBIN (BEAKER) (test code = 7.6 GM/DL 13.7-17.5 L 410) HEMATOCRIT (BEAKER) (test code = 26.5 % 40.1-51.0 L 411) Fiberglass Machine Operator ID - 6000SARS-COV2/RT-PCR ([facility])2021-05-23 19:59:55 Test Item Value Reference Range Interpretation Comments SARS-COV2/RT-PCR Negative Negative The SARS-Co V-2 target (test code = nucleic acids a re not 5821812) detected in thi s specimen. Negative result [...] revoked sooner. Fact Sheet for Healthcare Providers: https://www.[employer]/Documents/Xpert%20Xpress%20SARS%20CoV-2/Fact%20Sheets/811-1872%38DLSB-MNH-6%20 HEALTHCARE%20PROVIDERS%20FACT%20SHEET.pdf Fact Sheet for Healthcare Patients: https://www.[employer]/Documents/Xpert%20Xp ress%20SARS%20CoV-2/Fact%20Sheets/682-3801%78IQOF-XWQ-1%20PATIENT%20FACT%20SHEET .pdfCOMPREHENSIVE METABOLIC [id number] 17:17:21 Test Item Value Reference Range Interpretation [...] S NOT APPLICABLE FOR DIALYSIS PATIEN TS. Fiberglass Machine Operator ID - LUDA [id number] 17:17:21 Test Item Value Reference Range Interpretation Comments LIPASE (BEAKER) (test code = 749) 31 U/L 8-78 Fiberglass Machine Operator ID - LUDA FPT/IMPI1822-10-09 16:55:15 Test Item Value Reference Range Interpretation [...] mechanical heart valves.CBC W/PLT COUNT & AUTO [id number] 16:37:06 Test Item Value Reference Range Interpretation [...] (BEAKER) (test code = 2801) BASIC METABOLIC [id number] 04:38:30 Test Item Value Reference Range Interpretation [...] S NOT APPLICABLE FOR DIALYSIS PATIEN TS. Fiberglass Machine Operator ID - DBCBC W/PLT COUNT & AUTO [id number] 04:21:40 Test Item Value Reference Range Interpretation [...] (BEAKER) (test code = 2801) BASIC METABOLIC [id number] 07:03:04 Test Item Value Reference Range Interpretation [...] S NOT APPLICABLE FOR DIALYSIS PATIEN TS. Fiberglass Machine Operator ID - PIAYA LCBC (HEMOGRAM ONLY)2021-05-17 04:38:47 [...] (BEAKER) (test code = 413) HEMOGLOBIN AND [id number] 20:18:40 Test Item Value Reference Range Interpretation Comments HEMOGLOBIN (BEAKER) (test code = 7.7 GM/DL 13.7-17.5 L 410) HEMATOCRIT (BEAKER) (test code = 25.7 % 40.1-51.0 L 411) Fiberglass Machine Operator ID - 6000BASIC METABOLIC [id number] 06:32:43 Test Item Value Reference Range Interpretation [...] S NOT APPLICABLE FOR DIALYSIS PATIEN TS. Fiberglass Machine Operator ID - MARZENA MCBC W/PLT COUNT & AUTO [id number] 06:09:12 Test Item Value Reference Range Interpretation [...] (BEAKER) (test code = 2801) HEMOGLOBIN AND [id number] 00:13:44 Test Item Value Reference Range Interpretation Comments HEMOGLOBIN (BEAKER) (test code = 8.0 GM/DL 13.7-17.5 L 410) HEMATOCRIT (BEAKER) (test code = 28.1 % 40.1-51.0 L 411) Fiberglass Machine Operator ID - 6000SARS-COV2/RT-PCR ([facility])2021-05-15 18:07:21 Test Item Value Reference Range Interpretation Comments SARS-COV2/RT-PCR Negative Negative The SARS-Co V-2 target (test code = nucleic acids a re not 3923489) detected in thi s specimen. Negative result [...] individuals suspected of CO VID-19 by their [facility] e provider. This test has been authorized [...] revoked sooner. Fact Sheet for Healthcare Providers: https://www.[employer]/Documents/Xpert%20Xpress%20SARS%20CoV-2/Fact%20Sheets/3023802%56TGBA-XGR-4%20 HEALTHCARE%20PROVIDERS%20FACT%20SHEET.pdf Fact Sheet for Healthcare Patients: https://www.[employer]/Documents/Xpert%20Xp ress%20SARS%20CoV-2/Fact%20Sheets/3023801%12LCYN-OWC-8%20PATIENT%20FACT%20SHEET .pdfHIGH SENSITIVITY TROPONIN [id number] 15:44:19 Test Item Value Reference Range Interpretation Comments HIGH SENSITIVITY 6 pg/ml See_Comment [Automated message] TROPONIN I (test code = The system which 1404050) generated this result transmitted ref erence range: <=35. Th e reference range was not used to interpr et this result as normal/abnormal . Fiberglass Machine Operator ID - DBThe HUMAN FACTORS ENGINEER STAT High Sensitivity Troponin-I results should be used in conjunctionwith other diagnostic information such as ECG, clinical observations and information, and patient symptoms to aid in the diagnosis of LA.[id number] 15:36:53 Test Item Value Reference Range Interpretation Comments MAGNESIUM (BEAKER) (test code = 2.1 mg/dL 1.6-2.6 627) Fiberglass Machine Operator ID - KYJQLGZUXWRF7391-38-25 15:36:53 Test Item Value Reference Range Interpretation Comments PHOSPHORUS (BEAKER) (test code = 3.3 mg/dL 2.3-4.7 604) Fiberglass Machine Operator ID - DBCOMPREHENSIVE METABOLIC [id number] 15:36:52 Test Item Value Reference Range Interpretation [...] S NOT APPLICABLE FOR DIALYSIS PATIEN TS. Fiberglass Machine Operator ID - DBCBC W/PLT COUNT & AUTO [id number] 15:12:30 Test Item Value Reference Range Interpretation [...] = 2801) RAD, CHEST, 1 VIEW, NON [id number] 13:55:00Reason for exam:->MELENAReason for exam:->GENERAL ILLNESSReason for exam:->GENERALIZED WEAKNESS, NOT ASSOCIATED WITH EXTREMITIESShould this be performed at the bedside?->Yes [facility] 1945 Sex: MFINAL REPORT INDICATION: MELENAGENERAL ILLNESSGENERALIZED WEAKNESS, NOT ASSOCIATED WITH EXTREMITIES COMPARISON: 05/01/2021 TECHNIQUE: Single frontal view of the chest. FINDINGS: Lungs and pleura: Clear lungs. No effusion.Heart and mediastinum: Normal heart size. Unremarkable mediastinal contours.Osseous structures: No acute abnormality.Other: None. IMPRESSION: No acute intrathoracic abnormality. Signed: Gaby [facility]aint [facility] Verified Date/Time: 05/15/2021 13:55:04 Reading Location: [facility] Radiology Reading Room MAGNESIUM 2021-05-10 07:19:33 Test Item Value Reference Range Interpretation Comments MAGNESIUM (BEAKER) (test code = 2.4 mg/dL 1.6-2.6 627) Fiberglass Machine Operator ID - PIAYA LBASIC METABOLIC [id number] 07:19:32 Test Item Value Reference Range Interpretation [...] S NOT APPLICABLE FOR DIALYSIS PATIEN TS. Fiberglass Machine Operator ID - PIAYA LCBC W/PLT COUNT & AUTO [id number] 06:34:22 Test Item Value Reference Range Interpretation [...] (test code = 2801) UREA NITROGEN, RANDOM [id number] 17:46:02 Test Item Value Reference Range Interpretation Comments UREA NITROGEN URINE (BEAKER) (test 404 mg/dL code = 538) Reference Range: No NormalsOperator ID - BSSODIUM, RANDOM [id number] 17:46:01 Test Item Value Reference Range Interpretation Comments SODIUM URINE (BEAKER) (test code = 101 meq/L 243) Reference Range: No NormalsOperator ID - BSCREATININE, RANDOM [id number] 17:46:00 Test Item Value Reference Range Interpretation Comments CREATININE URINE (BEAKER) (test 61.7 mg/dL code = 375) Reference Range: No NormalsOperator ID - BSURINALYSIS WITH MICROSCOPIC IF [id number] 16:41:11 Test Item Value Reference Range Interpretation [...] = 463) SOURCE(BEAKER) (test code = 2795) Fiberglass Machine Operator ID - [auto]BLOOD [id number] 11:01:01 Test Item Value Reference Range Interpretation Comments CULTURE (BEAKER) (test No growth in 5 days code = 1095) BLOOD [id number] 11:01:01 Test Item Value Reference Range Interpretation Comments CULTURE (BEAKER) (test No growth in 5 days code = 1095) The specimen volume collected for this blood culture was below the optimum (10 mL per bottle or 20 mL total). Use of lower volumes may adversely affect recovery and/or detection times of some organisms.[id number] 05:38:27 Test Item Value Reference Range Interpretation Comments MAGNESIUM (BEAKER) (test code = 2.3 mg/dL 1.6-2.6 627) Fiberglass Machine Operator ID - PIAYA LBASIC METABOLIC [id number] 05:38:26 Test Item Value Reference Range Interpretation [...] S NOT APPLICABLE FOR DIALYSIS PATIEN TS. Fiberglass Machine Operator ID - PIAYA LPROTHROMBIN [id number] 05:23:25 Test Item Value Reference Range Interpretation Comments PROTIME (BEAKER) 16.9 seconds 11.9-14.2 H (test code = 759) INR (BEAKER) (test 1.39 See_Comment [Automat ed message] code = 370) The system uTaP generated this result transmitted ref erence range: <=5.90. The reference range was not used to int erpret this result as normal/abnormal . RECOMMENDED COUMADIN/WARFARIN INR THERAPY RANGESSTANDARD DOSE: 2.0 - 3.0 Includes: PROPHYLAXIS for venous thrombosis, systemic embolization; TREATMENT for venous thrombosis and/or pulmonary embolus.HIGH RISK: Target INR is 2.5-3.5 for patients with mechanical heart valves.CBC W/PLT COUNT & AUTO [id number] 05:22:39 Test Item Value Reference Range Interpretation [...] (BEAKER) (test code = 2801) COMPREHENSIVE METABOLIC [id number] 16:17:38 Test Item Value Reference Range Interpretation [...] S NOT APPLICABLE FOR DIALYSIS PATIEN TS. Fiberglass Machine Operator ID - DBSARS-COV2/RT-PCR ([facility])2021-05-08 12:32:16 Test Item Value Reference Range Interpretation Comments SARS-COV2/RT-PCR (test Negative Not Detected, Negative, code = 1947096) See external report for linked test SARS-COV-[address] [facility] (test code = 6002858) Negative result for this test determines that [...] of the Act.Fact Sheet for Healthcare Prov iders:https://www.Manta/sites/default/files/product/documents/Fact_Sheet_HC _Rpueiznnr_Sope_HLYS-JkV-3.pdfFact Sheet for Healthcare Patients:https://www.Manta/sites/default/files/product/docume nts/Uvqk_Iofrp_Jhggsbpu_Oqot_AAKT-FtD-8.pdfPerforming Laboratory:[facility], [place] [address]RZY (HEMOGRAM ONLY) 2021-05-08 06:41:47 Test Item Value [...] code = 413) MYOCARD IMAGING, MULTI, PHARM, [id number] 13:41:00Unlisted Reason for Exam - Click Yes and Enter Reason Below->No [facility] 1945 Sex: MFINAL REPORT PROCEDURE: Rest/Stress MYOCARDIAL PERFUSION SPECT with regadenoson\\XA9\\ CPT CODE: 43134 INDICATION: Chest pain PROTOCOL: 10.6 mCi of [...] MDReport Verified Date/Time: 05/07/2021 13:41:19 CBC (HEMOGRAM ONLY) [...] (BEAKER) (test code = 413) BASIC METABOLIC [id number] 06:10:10 Test Item Value Reference Range Interpretation [...] S NOT APPLICABLE FOR DIALYSIS PATIEN TS. Fiberglass Machine Operator ID - SHANE GCBC (HEMOGRAM ONLY)2021-05-06 05:35:30 [...] 0-0 H (BEAKER) (test code = 413) [id number] 17:04:33 Test Item Value Reference Range Interpretation Comments PARTIAL THROMBOPLASTIN TIME 75.5 seconds 22.5-36.0 H (BEAKER) (test code = 760) [id number] 08:48:29 Test Item Value Reference Range Interpretation Comments PARTIAL THROMBOPLASTIN TIME 39.1 seconds 22.5-36.0 H (BEAKER) (test code = 760) [id number] 07:02:01 Test Item Value Reference Range Interpretation [...] (BEAKER) (test code = 413) BASIC METABOLIC [id number] 06:36:45 Test Item Value Reference Range Interpretation [...] S NOT APPLICABLE FOR DIALYSIS PATIEN TS. Fiberglass Machine Operator ID - SHANE [id number] 22:11:03 Test Item Value Reference Range Interpretation Comments PARTIAL THROMBOPLASTIN TIME 88.2 seconds 22.5-36.0 H (BEAKER) (test code = 760) PERIPHERAL BLOOD SMEAR - PATHOLOGIST [id number] 18:22:51 Test Item Value Reference Range Interpretation Comments PERIPHERAL SMR Microcytic hypochromic REVIEW (BEAKER) anemia with marked (test code = 0500) anisopoikilocytosis and polychromasia, consistent with history of LEESA. Leukocytosis with predominantly mature granulocytes. No blasts seen. Adequate platelets with unremarkable morphology. [id number] Andreina Schmidt, 112 (BEAKER) (test M.D code [...] (BEAKER) (test code 2+ moderate = 966) [id number] 12:13:05 Test Item Value Reference Range Interpretation Comments PARTIAL THROMBOPLASTIN TIME 55.6 seconds 22.5-36.0 H (BEAKER) (test code = 760) TISSUE [id number] 11:53:42Surgical Pathology Report Case: [id number] Authorizing Provider: Yolanda Lyle MD Collected: 05/03/2021 10:38 AM Ordering Location: [address] Received: 05/03/2021 02:25 PM Service Pathologist: Ciro Diamond MD Specimen: Polyp, Colon - Right/Ascending, x3 PART A RIGHT ASCENDING COLON POLYPX3, POLYPECTOMY:TUBULAR ADENOMA Signing Pathologist Direct Phone Line: [phone] signed by Ciro Diamond MD on 05/04/2021 at 11:53 [id number] colonReceived in formalin labeled the patient's name, accession number and "ascending colon polyp" are multipletan soft tissue fragments measuring up to 0.5 cm in greatest dimension which are filtered and submitted in toto in A1.URSULA Martell, HT (ASCP)performedBaylEmanate Health/[facility], Departmentof Pathology, [address] [place] [address], [facility], Department of Pathology, [address] [place] [address], YthsluM[facility], Department of Pathology, [address] [place] [address], [id number] 11:13:03 Test Item Value Reference Range Interpretation Comments PARTIAL THROMBOPLASTIN TIME > seconds 22.5-36.0 HH (BEAKER) (test code = 760) URINALYSIS [id number] 10:30:34 Test Item Value Reference Range Interpretation Comments RBC UA (BEAKER) (test code = 519) 3 /HPF WBC UA (BEAKER) (test code = 520) 2 /HPF BACTERIA (BEAKER) (test code = None Seen 517) MUCUS (BEAKER) (test code = 1574) Moderate CRYSTALS, URINE (BEAKER) (test None Seen code = 1521) AMORPHOUS CRYSTALS (BEAKER) (test Occasional code = 1584) Fiberglass Machine Operator ID - techURINALYSIS WITH MICROSCOPIC IF [id number] 10:23:22 Test Item Value Reference Range Interpretation [...] = 463) SOURCE(BEAKER) (test code = 2795) Fiberglass Machine Operator ID - [auto]BASIC METABOLIC [id number] 06:55:55 Test Item Value Reference Range Interpretation [...] S NOT APPLICABLE FOR DIALYSIS PATIEN TS. Fiberglass Machine Operator ID - SHANE GCBC (HEMOGRAM ONLY)2021-05-04 06:35:01 [...] 0-0 (BEAKER) (test code = 413) BLOOD [id number] 18:01:00 Test Item Value Reference Range Interpretation Comments CULTURE (BEAKER) (test No growth in 5 days code = 1095) BLOOD [id number] 18:00:59 Test Item Value Reference Range Interpretation Comments CULTURE (BEAKER) (test No growth in 5 days code = 1095) TISSUE [id number] 17:23:09Surgical Pathology Report Case: [id number] Authorizing Provider: Yolanda Lyle MD Collected: 05/02/2021 03:08 PM Ordering Location: [address] Received: 05/03/2021 09:22 AM Service Pathologist: [...] INVASIVE CARCINOMA. Signing Pathologist Direct Phone Line: [phone] signed by Ciro Diamond MD on 05/03/2021 at 5:23 [id number], [id number] iron deficiency anemiaA. Duo denum tissue, rule out celiacB. Biopsy, gastric tissueC. [...] ranging each measuring 0.1 cm in greatest di mension. The specimen is submitted in toto following [...] evaluated Immunohistochemistry technical testing was performed at [facility]ology Laboratory where it was developed and its performance characteristics were determined. It has not been cleared or approved by the U.S. Food and Drug Administration. The FDA has determined that such clearance or approvalis not necessary. The test is used for clinical purposes. It should not be regarded as investigational or for research. This laboratory is certified under the Clinical Laboratory Improvement Amendmentsof 1988 (CLIA-88) as qualified to perform high complexity clinical laboratory testing.[facility], Department of Pathology, [address] [place], [place] [id number], [facility]icM[facility], Department of Pathology, [address] [place] [address], LglvyfMission [facility], Department of Pathology, [address] [place] [address], NIMTO METABOLIC PANEL 2021-05-03 06:21:43 Test Item Value [...] S NOT APPLICABLE FOR DIALYSIS PATIEN TS. Fiberglass Machine Operator ID - MARZENA MTSH/FREE T4 IF [id number] 05:55:30 Test Item Value Reference Range Interpretation Comments THYROID STIMULATING HORMONE 0.869 uIU/mL 0.350-4.940 (BEAKER) (test code = 772) Fiberglass Machine Operator ID - MARZENA MB-TYPE NATRIURETIC FACTOR (BNP)2021-05-03 05:32:14 Test Item Value Reference Range Interpretation Comments B-TYPE NATRIURETIC PEPTIDE (BEAKER) 452 pg/mL 0-100 H (test code = 700) Fiberglass Machine Operator ID - MARZENA MCBC (HEMOGRAM ONLY)2021-05-03 05:22:14 [...] CONCENTRATION Adequate (CELLAVISION)(BEAKER) (test code = 3438) Fiberglass Machine Operator ID - Luca Perry comments: Slide comments:CBC W/PLT COUNT & AUTO [id number] 11:59:17 Test Item Value Reference Range Interpretation [...] (BEAKER) (test code = 413) BASIC METABOLIC [id number] 09:20:42 Test Item Value Reference Range Interpretation [...] S NOT APPLICABLE FOR DIALYSIS PATIEN TS. Fiberglass Machine Operator ID - KEARA WPT/[id number] 09:05:40 Test Item Value Reference Range Interpretation [...] 2.5-3.5 for patients with mechanical heart valves.SARS-COV2/RT-PCR ([facility]) 2021-05-01 12:34:25 Test Item Value Reference Range Interpretation Comments SARS-COV2/RT-PCR (test Negative Not Detected, Negative, code = 5921410) See external report for linked test SARS-COV-[address] [facility] (test code = 9754984) Negative result for this test determines that [...] of the Act.Fact Sheet for Healthcare Prov iders:https://www.Manta/sites/default/files/product/documents/Fact_Sheet_HC _Mqxcklvto_Ljhv_ZXWT-QiS-2.pdfFact Sheet for Healthcare Patients:https://www.Manta/sites/default/files/product/docume nts/Ndgr_Rnnds_Skghbgzy_Mirp_MQGP-GvG-6.pdfPerforming Laboratory:[place] [address], [place] [address]YUW, CHEST, 1 VIEW, NON [id number] 09:29:00Reason for exam:->shortness of breathShould this be performed at the bedside?->Yes [facility]ILVERSanto BACH : 1945 Sex: MFINAL REPORT Chest AP portable History provided: Shortness of breath Heart size magnified by projection. Lungs are clear and vascularity normal. Signed: Reji Jeffersort Verified Date/Time: 05/01/2021 09:29:27 Reading Location: [facility] Radiology Reading Room CBC (HEMOGRAM ONLY)2021-05-01 06:54:20 [...] (BEAKER) (test code = 413) BASIC METABOLIC [id number] 06:24:43 Test Item Value Reference Range Interpretation [...] S NOT APPLICABLE FOR DIALYSIS PATIEN TS. Fiberglass Machine Operator ID - PIAYA LBASIC METABOLIC [id number] 15:17:17 Test Item Value Reference Range Interpretation [...] S NOT APPLICABLE FOR DIALYSIS PATIEN TS. Fiberglass Machine Operator ID - DBCBC W/PLT COUNT & AUTO [id number] 14:42:15 Test Item Value Reference Range Interpretation [...] (BEAKER) (test code = 2801) HEMOGLOBIN AND [id number] 14:41:31 Test Item Value Reference Range Interpretation Comments HEMOGLOBIN (BEAKER) (test code = 9.7 GM/DL 13.7-17.5 L 410) HEMATOCRIT (BEAKER) (test code = 33.4 % 40.1-51.0 L 411) Fiberglass Machine Operator ID - [id number], [id number] 02:24:00Unlisted Reason for Exam - Click Yes and Enter Reason Below->NoWill this procedure require oral co ntrast?->NoAUGUSTIN [facility] : 1945 Sex: MFINAL [...] nonobstructing left renal stone. Signed: Aman Todd MDReport Verified Date/Time: 04/30/2021 02:24:34 HEMOGLOBIN [id number] 09:35:28 Test Item Value Reference Range Interpretation Comments HEMOGLOBIN A1C (BEAKER) (test code = 6.6 % 4.3-6.1 H 368) HEPATIC FUNCTION [id number] 05:59:52 Test Item Value Reference Range Interpretation [...] (test code = 38 U/L 6-55 347) Fiberglass Machine Operator ID - MARZENA [id number] 05:59:50 Test Item Value Reference Range Interpretation Comments MAGNESIUM (BEAKER) (test code = 2.9 mg/dL 1.6-2.6 H 627) Fiberglass Machine Operator ID - MARZENA MLIPID [id number] 05:59:50 Test Item Value Reference Range Interpretation [...] Borderline 130-159 High 160-189 Very High >=190 Fiberglass Machine Operator ID - MARZENA MBASIC METABOLIC [id number] 05:59:49 Test Item Value Reference Range Interpretation [...] S NOT APPLICABLE FOR DIALYSIS PATIEN TS. Fiberglass Machine Operator ID - MARZENA MB-TYPE NATRIURETIC FACTOR (BNP)2021-04-29 05:49:20 Test Item Value Reference Range Interpretation Comments B-TYPE NATRIURETIC PEPTIDE (BEAKER) 329 pg/mL 0-100 H (test code = 700) Fiberglass Machine Operator ID - DBPROTHROMBIN TIME/[id number] 05:43:23 Test Item Value Reference Range Interpretation Comments PROTIME (BEAKER) 15.3 seconds 11.9-14.2 H (test code = 759) INR (BEAKER) (test 1.23 See_Comment [Automat ed message] code = 370) The system uTaP generated this result transmitted ref erence range: <=5.90. The reference range was not used to int erpret this result as normal/abnormal . RECOMMENDED COUMADIN/WARFARIN INR THERAPY RANGESSTANDARD DOSE: 2.0 - 3.0 Includes: PROPHYLAXIS for venous thrombosis, systemic embolization; TREATMENT for venous thrombosis and/or pulmonary embolus.HIGH RISK: Target INR is 2.5-3.5 for patients with mechanical heart valves.CBC W/PLT COUNT & AUTO [id number] 05:29:39 Test Item Value Reference Range Interpretation [...] (BEAKER) (test code = 2801) BASIC METABOLIC [id number] 20:29:00 Test Item Value Reference Range Interpretation [...] S NOT APPLICABLE FOR DIALYSIS PATIEN TS. Fiberglass Machine Operator ID - [id number] 16:56:00 Test Item Value Reference Range Interpretation Comments FERRITIN (BEAKER) (test code = 13.77 ng/mL 5.00-275.00 361) Fiberglass Machine Operator ID - DBHIGH SENSITIVITY TROPONIN [id number] 16:42:00 Test Item Value Reference Range Interpretation Comments HIGH SENSITIVITY 13 pg/ml See_Comment [Automated message] TROPONIN I (test code = The system which [id number]) generated this result transmitted ref erence range: <=35. Th e reference range was not used to int erpret this result as normal/abnormal . Fiberglass Machine Operator ID - DBThe HUMAN FACTORS ENGINEER STAT High Sensitivity Troponin-I results should be used in conjunctionwith other diagnostic information such as ECG, clinical observations and information, and patient symptoms to aid in the diagnosis of LA.HIGH SENSITIVITY TROPONIN [id number] 16:41:00 Test Item Value Reference Range Interpretation Comments HIGH SENSITIVITY 15 pg/ml See_Comment [Automated message] TROPONIN I (test code = The system which [id number]) generated this result transmitted ref erence range: <=35. Th e reference range was not used to int erpret this result as normal/abnormal . Fiberglass Machine Operator ID - DBThe HUMAN FACTORS ENGINEER STAT High Sensitivity Troponin-I results should be used in conjunctionwith other diagnostic information such as ECG, clinical observations and information, and patient symptoms to aid in the diagnosis of LA.IRON, TIBC, % SAT. (WITHOUT FERRITIN)2021-04-28 16:35:00 Test Item Value Reference Range Interpretation Comments IRON (BEAKER) (test code = 547) 22.0 ug/dL 40.0-160.0 L TOTAL IRON BINDING CAPACITY 473 ug/dL 250-450 H (BEAKER) (test code = 769) IRON % SATURATION (2) (BEAKER) 5 % 20-55 L (test code = 2590) Fiberglass Machine Operator ID - DBHEMOGLOBIN AND [id number] 15:56:00 Test Item Value Reference Range Interpretation Comments HEMOGLOBIN (BEAKER) (test code = 9.2 GM/DL 13.7-17.5 L 410) HEMATOCRIT (BEAKER) (test code = 30.6 % 40.1-51.0 L 411) Fiberglass Machine Operator ID - [id number]
--- NOTE | 2022-06-10 16:06 | RAD REPORT ---
EXAM DESCRIPTION: RAD - Chest Single View - 06/10/2022 3:50 pm CLINICAL HISTORY: CHEST PAIN COMPARISON: Chest Single View dated 03/10/2022; Chest Single View dated 08/23/2021; Chest Single View d ated 07/25/2021; Chest Single View dated 07/24/2021; Abdomen Pelvis W Contrast dated 08/23/2021 FINDINGS: Lines: None. Lungs: No evidence of edema or pneumonia. Pleural: Possible small effusions bilaterally. Cardiac: Cardiomegaly. Mediastinum: Within normal limits. Bones: No acute fractures. Other: None IMPRESSION: Question small bilateral pleural effusions otherwise no acute process.
[2022-06-10 16:13] LABS: Absolute Lymphocytes (CBC) 1.5 K/uL (0.7-4.9); Hematocrit 28.7 % (39.6-49.0); Lymphocytes % 30.3 % (15.3-44.8); MCV 70.2 fL (80-100); MPV 7.8 fL (7.6-11.3); RBC Red Blood Cell Count 4.08 M/uL (4.33-5.43)
[2022-06-10 16:21] LABS: Protime INR 2.92
[2022-06-10 16:25] LABS: ALT/SGPT 28 U/L (12-78); AST/SGOT 13 U/L (15-37); Albumin 3.2 g/dL (3.4-5.0); Alkaline Phosphatase 79 U/L (45-117); BUN Blood Urea Nitrogen 18 mg/dL (7-18); Bicarbonate 23 mmol/L (21-32); Bilirubin Direct < 0.1 mg/dL (0-0.2); Bilirubin Total 0.3 mg/dL (0.2-1.0); Glomerular Filtration Rate 81 ml/min (=/>90); Glucose Level 115 mg/dL (74-106); NT PRO-BNP 748 pg/mL (<450); Potassium 3.9 mmol/L (3.5-5.1); Protein, Total 6.5 g/dL (6.4-8.2); Sodium Level 138 mmol/L (136-145); Troponin High Sensitivity 16.1 pg/mL (<58.9)
--- NOTE | 2022-06-10 19:29 | EDPHYS ---
Physician Documentation [facility] Name: Oleg Giles Age: 76 yrs Sex: Male : 1945 Arrival Date: 06/10/2022 Time: 14:34 Bed 2 Private MD: ED Physician Augusto Cassidy HPI: 06/10 15:01 This 76 yrs old Male presents to ER via Ambulatory with complaints of chest rn pain. 15:01 The patient or guardian reports chest pain that is located primarily in the substernal rn area. Onset: just prior to arrival. The pain does not radiate. Associated signs and symptoms: Pertinent negatives: abdominal pain, cough, diaphoresis, dizziness, headache, lightheadedness, palpitations, recent travel, shortness of breath, syncope, vomiting. The chest pain is described as a heaviness. Duration: The patient or guardian reports a single episode, that is still ongoing. Modifying factors: The symptoms are alleviated by nothing. the symptoms are aggravated by nothing. Severity of pain: At its worst the pain was mild in the emergency department the pain is unchanged. The patient has not experienced similar symptoms in the past. The patient has not recently seen a physician. Pt reports substernal chest pain, happened while watching tv, not better or worse. No fever/cough/trauma/sob/abd pain/vomiting/diarrhea. . 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 - Social history:: Smoking status: Patient denies any tobacco usage or history of. - Family history:: not pertinent. - Hospitalizations: : No recent hospitalization is reported. ROS: 15:01 Constitutional: Negative for fever, chills, and weight loss, Eyes: Negative for injury, rn pain, redness, and discharge, Neck: Negative for injury, pain, and swelling, Cardiovascular: Negative for palpitations, and edema Respiratory: Negative for shortness of breath, cough, wheezing, and pleuritic chest pain, Abdomen/GI: Negative for abdominal pain, nausea, vomiting, diarrhea, and constipation, Back: Negative for injury and pain, MS/Extremity: Negative for injury and deformity, Skin: Negative for injury, rash, and discoloration, Neuro: Negative for headache, weakness, numbness, tingling, and seizure. Exam: 15:01 Constitutional: This is a well developed, well nourished patient who is awake, alert, rn and in no acute distress. Head/Face: Normocephalic, atraumatic. Eyes: Periorbital areas with no swelling, redness, or edema. Cardiovascular: Regular rate and rhythm. No pulse deficits. Respiratory: No increased work of breathing, no retractions or nasal flaring. Abdomen/GI: soft, non-tender Skin: Warm, dry MS/ Extremity: Pulses equal, no cyanosis. Neuro: Awake and alert, GCS 15, oriented to person, place, time, and situation. 17:56 ECG was reviewed by the Attending Physician. rn Vital Signs: 14:39 BP 166 / 106; Pulse 66; Resp 16; Temp 98.1; Pulse Ox 100% on R/A; Pain 5/10; hb 16:00 BP 159 / 97; Pulse 56; Resp 16; Pulse Ox 100% on R/A; ph 17:00 BP 149 / 87; Pulse 54; Resp 18; Pulse Ox 98% on R/A; ph 18:02 BP 158 / 64; Pulse 51; Resp 18; Pulse Ox 100% on R/A; ph 19:56 BP 159 / 67; Pulse 55; Resp 16; Pulse Ox 97% on R/A; jb4 MDM: 14:34 Patient medically screened. rn 16:00 Differential diagnosis: abnormal EKG, acute myocardial infarction, pericarditis, cp pleurisy, pneumonia, pneumothorax. 19:28 Data reviewed: vital signs, nurses notes, lab test result(s), EKG, radiologic studies, cp plain films. 19:28 Test interpretation: by ED physician or midlevel provider: ECG, plain radiologic cp studies. 19:28 ED course: VSS. Repeat troponin negative. Will discharge to home for continued cp monitoring. 06/10 14:41 Order name: Basic Metabolic Panel; Complete Time: 16:32 rn 06/10 14:41 Order name: CBC with Diff; Complete Time: 16:21 rn 06/10 19:25 Interpretation: Normal except: RBC 4.08; HGB 8.8; HCT 28.7; MCV 70.2; MCH 21.6; MCHC cp 30.7; RDW 18.1. 06/10 14:41 Order name: D-Dimer; Complete Time: 16:32 rn 06/10 14:41 Order name: LFT's; Complete Time: 16:32 rn 06/10 19:26 Interpretation: Normal except: AST 13; ALB 3.2; A/G 1.0. cp 06/10 14:41 Order name: NT PRO-BNP; Complete Time: 16:32 rn 06/10 14:41 Order name: PT-INR; Complete Time: 16:32 rn 06/10 19:26 Interpretation: PT 32.1; Reviewed. 06/10 14:41 Order name: Troponin HS; Complete Time: 16:32 rn 06/10 14:41 Order name: XRAY Chest (1 view); Complete Time: 16:21 rn 06/10 14:41 Order name: EKG; Complete Time: 14:42 06/10 14:41 Order name: Cardiac monitoring; Complete Time: 15:12 06/10 14:41 Order name: EKG - Nurse/Tech; Complete Time: 15:12 06/10 14:41 Order name: IV Saline Lock; Complete Time: 15:12 06/10 14:41 Order name: Labs collected and sent; Complete Time: 15:12 rn 06/10 16:59 Order name: Troponin High Sensitivity; Complete Time: 19:25 rn 06/10 19:26 Interpretation: Reviewed. 06/10 14:41 Order name: O2 Per Protocol; Complete Time: 15:12 06/10 14:41 Order name: O2 Sat Monitoring; Complete Time: 15:12 rn EC:56 Rate is 60 beats/min. Rhythm is regular. Left axis deviation noted. QRS is positive in rn lead I and negative in lead aVF. NJ interval is normal. QRS interval is prolonged at 136 msec. QT interval is normal. No Q waves. T waves are Normal. No ST changes noted. Clinical impression: NSR w/ Non-specific ST/T Changes. Interpreted by me. Reviewed by me. Administered Medications: No medications were administered Disposition: 06/11 18:54 Co-signature as Attending Physician, Augusto Cassidy MD I agree with the assessment and rn plan of care. Disposition Summary: 06/10/22 19:28 Discharge Ordered Location: Home cp Problem: new cp Symptoms: have improved cp Condition: Stable cp Diagnosis - Chest pain, unspecified cp - Anemia, unspecified cp Followup: cp - With: Private Physician - When: 1 - 2 days - Reason: Recheck today's complaints Discharge Instructions: - Discharge Summary Sheet cp - Anemia cp - Nonspecific Chest Pain, Adult cp Forms: - Medication Reconciliation Form cp - Thank You Letter cp - Antibiotic Education cp - Prescription Opioid Use cp Signatures: Dispatcher [employer] EDAugusto Sheth MD MD rn Kyle Parks PA PA cp Selina Kerr, RN RN
--- NOTE | 2022-06-10 19:29 | ER ---
Nurse's Notes [facility] Name: Oleg Giles Age: 76 yrs Sex: Male : 1945 Arrival Date: 06/10/2022 Time: 14:34 Bed 2 Private MD: Diagnosis: Chest pain, unspecified;Anemia, unspecified Presentation: 06/10 14:39 Chief complaint: Sudden onset sharp midsternal chest pain that started at noon while hb watching television. Pain comes and goes, does not radiate, denies SOB/nausea. Hx of valve replacement and stroke. Coronavirus screen: At this time, the client does not indicate any symptoms associated with coronavirus-19. Ebola Screen: No symptoms or risks identified at this time. Initial Sepsis Screen: Does the patient meet any 2 criteria? No. Patient's initial sepsis screen is negative. Does the patient have a suspected source of infection? No. Patient's initial sepsis screen is negative. Risk Assessment: Do you want to hurt yourself or someone else? Patient reports no desire to harm self or others. Onset of symptoms was June 10, 2022 at 12:00. 14:39 Method Of Arrival: Ambulatory hb 14:39 Acuity: ALEXANDREA 3 hb Historical: - Allergies: 14:40 No Known Allergies; hb - PMHx: 14:40 Atrial fibrillation; Congestive heart failure; Cerebrovascular accident; Heart Murmur; hb Hypercholesterolemia; Hypertensive disorder; Pneumonia; - PSHx: 14:40 Cardiac Ablation; cataract repair; heart valve replacement: 08/2021; hb - Immunization history:: Adult Immunizations up to date. - Social history:: Smoking status: Patient denies any tobacco usage or history of. - Family history:: not pertinent. - Hospitalizations: : No recent hospitalization is reported. Screenin:14 Abuse screen: Denies threats or abuse. Denies injuries from another. Nutritional ph screening: No deficits noted. Tuberculosis screening: No symptoms or risk factors identified. Fall Risk None identified. Assessment: 15:13 General: Appears in no apparent distress. comfortable, Behavior is calm, cooperative, ph appropriate for age. Pain: Complains of pain in chest Pain does not radiate. Neuro: Level of Consciousness is awake, alert, obeys commands, Oriented to person, place, time, situation. Cardiovascular: Reports chest pain, shortness of breath, Capillary refill < 3 seconds in bilateral fingers Patient's skin is warm and dry. Respiratory: Airway is patent Respiratory effort is even, unlabored. Derm: Skin is pink, warm \T\ dry. 16:30 Reassessment: Patient appears in no apparent distress at this time. Patient and/or ph family updated on plan of care and expected duration. Pain level reassessed. Patient is alert, oriented x 3, equal unlabored respirations, skin warm/dry/pink. 19:03 Reassessment: Patient appears in no apparent distress at this time. Patient and/or ph family updated on plan of care and expected duration. Pain level reassessed. Patient is alert, oriented x 3, equal unlabored respirations, skin warm/dry/pink. Awaiting results of repeat troponin. 20:01 Reassessment: Patient appears in no apparent distress at this time. Patient and/or jb4 family updated on plan of care and expected duration. Pain level reassessed. Patient is alert, oriented x 3, equal unlabored respirations, skin warm/dry/pink. Vital Signs: 14:39 BP 166 / 106; Pulse 66; Resp 16; Temp 98.1; Pulse Ox 100% on R/A; Pain 5/10; hb 16:00 BP 159 / 97; Pulse 56; Resp 16; Pulse Ox 100% on R/A; ph 17:00 BP 149 / 87; Pulse 54; Resp 18; Pulse Ox 98% on R/A; ph 18:02 BP 158 / 64; Pulse 51; Resp 18; Pulse Ox 100% on R/A; ph 19:56 BP 159 / 67; Pulse 55; Resp 16; Pulse Ox 97% on R/A; jb4 ED Course: 14:34 Patient arrived in ED. am2 14:34 Augusto Cassidy MD is Attending Physician. rn 14:35 Angela Williamson, DI is Primary Nurse. ld1 14:37 Jaycee Fried, DI is Primary Nurse. ph 14:40 Triage completed. hb 14:40 Arm band placed on. hb 15:12 Inserted saline lock: 22 gauge in left antecubital area, using aseptic technique. ph Missed attempt(s): 22 gauge in right antecubital area. Bleeding controlled, band aid applied, catheter tip intact. Missed attempt(s): 24 gauge in right hand. 15:14 Patient has correct armband on for positive identification. Placed in gown. Bed in low ph position. Call light in reach. Client placed on continuous cardiac and pulse oximetry monitoring. NIBP monitoring applied. 15:52 XRAY Chest (1 view) In Process Unspecified. EDMS 18:48 Kyle Parks PA is PHCP. cp 19:03 No provider procedures requiring assistance completed. ph 20:03 IV discontinued, intact, bleeding controlled, No redness/swelling at site. Pressure jb4 dressing applied. Administered Medications: No medications were administered Medication: 15:14 VIS not applicable for this client. ph Outcome: 19:28 Discharge ordered by MD. cp 20:03 Discharged to home ambulatory, with family. jb4 20:03 Condition: stable 20:03 Discharge instructions given to patient, Instructed on discharge instructions, follow up and referral plans. Demonstrated understanding of instructions, follow-up care. 20:03 Patient left the ED. jb4 Signatures: Dispatcher [employer] EDMS Augusto Cassidy MD MD rn Hall, Patricia, RN RN ph Kyle Parks PA PA cp Selina Kerr, DI RN Omi Goel RN RN jb4 Ria Hernandez am2 Angela Williamson RN RN ld1 Corrections: (The following items were deleted from the chart) 19:18 19:03 Reassessment: Patient appears in no apparent distress at this time. Patient ph and/or family updated on plan of care and expected duration. Pain level reassessed. Patient is alert, oriented x 3, equal unlabored respirations, skin warm/dry/pink. ph
[2022-06-10 20:08] VITALS: TEMP 98.1
[2022-06-10 20:13] VITALS: BP 159/67; O2SAT 97
--- NOTE | 2022-06-11 18:40 | EKG ---
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
== END 2022-06-10 20:03 | disposition home or self-care (01) ==
LOC: ER 14:32
DX: R07.9 Chest pain, unspecified (principal); D64.9 Anemia, unspecified; I10 Essential (primary) hypertension; I50.9 Heart failure, unspecified; Z95.2 Presence of prosthetic heart valve
CPT/HCPCS: 36415; 71045; 80048; 80076; 83880; 84484; 85025; 85379; 85610; 93005; 99283

== ENCOUNTER 2022-07-11 17:53 | Inpatient (IN) | payer OTHER ==
--- OUTSIDE RECORDS SUMMARY | 2022-07-11 18:19 | XMS REPORT | Continuity of Care Document ---
:1945 Author Organization [facility] t Address [address] [place] [address] Care Team Providers Name Role Phone Melida SHEFFIELD, Willy Quinn Primary Care Physician [phone] ALBA BELTRAN NATASHA Attending Clinician Unavailable [id number] Attending Clinician Unavailable RYLAN JARAMILLO Attending Clinician Unavailable Jackelyn Hernandez Attending Clinician Unavailable Elle SEVILLA, Melisa Attending Clinician KARON CHRISTIAN Attending Clinician Unavailable Mack JUAREZ, Gabino Whitaker Attending Clinician GABINO PARK Attending Clinician Unavailable GABINO ARNOLD Attending Clinician Unavailable Amilcar SHEFFIELD, Alexa Jim Attending Clinician [phone] Michael Cristina MD Attending Clinician Floyd SHEFFIELD, Edith Gamboa Attending Clinician Jing SHEFFIELD, Jerrell Dave Attending Clinician Alberto SHEFFIELD, Raz Rodriguez Attending Clinician Bartolo Saldivar MD Attending Clinician Juan Carlos SHEFFIELD, Gabino Attending Clinician Darrel Hidalgo MD Attending Clinician Ramya SHEFFIELD, Colby Fox Attending Clinician [phone] ELLIS CAMARILLO Attending Clinician Unavailable Maria Teresa SHEFFIELD, Meliza Singh Attending Clinician [phone] Yessica SHEFFIELD, Timmy Miranda Attending Clinician Larry Holbrook CRNA Attending Clinician DARLENE SPARKS Attending Clinician Unavailable Doris SHEFFIELD, [place] Nicholas Attending Clinician Haseeb SHEFFIELD, Darlene Attending Clinician Yonas SHEFFIELD, Bernarda Estevez Attending Clinician RICK SANCHEZ Attending Clinician Unavailable NOA RAMIREZ Attending Clinician Unavailable Chery SHEFFIELD, Oneil Lesly Attending Clinician James SHEFFIELD, Noa Alexander Attending Clinician [phone] Nichelle SHEFFIELD, Jacobo Love Attending Clinician [phone] Bar Toledo MD Attending Clinician Raegan Rico MD Attending Clinician Dillon Tenorio MD Attending Clinician Joyce Boss CRNA Attending Clinician [phone] Robinson SHEFFIELD, Jimmy Ramirez Attending Clinician [phone] Katy Nath MD Attending Clinician Jaden Chan CRNA Attending Clinician Doctor Unassigned, [place] Attending Clinician Unavailable ALBA BELTRAN NATASHA Admitting Clinician Unavailable [id number] Admitting Clinician Unavailable RYLAN JARAMILLO Admitting Clinician Unavailable EDITH BARRIENTOS Admitting Clinician Unavailable BERNARDA BIRD Admitting Clinician Unavailable NOA RAMIREZ Admitting Clinician Unavailable BAR TOLEDO Admitting Clinician Unavailable SARAH SCHAFFER Admitting Clinician Unavailable Katy Nath MD Admitting Clinician Payers Payer Name Policy Type Policy Number Effective Date Expiration Date Garcia FLORES [id number] [facility] [id number] O - HUMANA [id number] 2021 2021 HEALTHCARE 00:00:00 00:00:00 TOTALCARE SNP [id number] 2020 MEDICARE HMO-CIGNA 00:00:00 CIGNA [facility] [id number] 2020 HMO 00:00:00 Problems Condition Condition Condition Status Onset Resolution Last Treating Co mments Source Name Details Category Date Date Treatment Clinician Date Severe Severe Disease Active [facility] mitral [facility]18 [facility] regurgitat regurgitat 00:00: Me dical ion ion 00 [place] 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 1-18 [facility] athy athy 00:00: Medical 00 [place] Paroxysmal Paroxysmal Disease Active [facility] atrial atrial 1-18 [facility] fibrillati fibrillati 00:00: Me dical on on 00 [place] Dehydratio Dehydratio Disease Active [facility] n n 1-13 [facility] 00:00: Medical [place] Nausea and Nausea and Disease Active [facility] vomiting vomiting 1-13 [facility] 00:00: Medical 00 [place] Esophageal Esophageal Disease Active 2020-[address] dysphagia dysphagia 1-15 [facility] 00:00: Medical [place] Weakness Weakness Disease [facility] Medical 00 [place] GI bleed GI bleed Disease [facility] Medical 00 [place] s/p s/p Disease Active [facility] Robotic Robotic 9-10 [facility] MVR/LAAL/M MVR/LAAL/M 00:00: Me dical AZE by Dr. TOM by Dr. Marko Bui (09/07/21) (09/07/21) Cardiogeni Cardiogeni Disease Active [facility] shock c shock [facility] Hypovolemi Hypovolemi Disease Active [facility] shock c shock [facility] Acute Acute Disease Active [facility] pulmonary pulmonary [facility] edema edema [facility] Hypervolem Hypervolem Disease Active [facility] ia, ia, [facility] unspecifie unspecifie Me dical d d Center hypervolem hypervolem ia type ia type No known No known Disease Unive rs active active ity of problems problems [facility] Branch Allergies, Adverse Reactions, Alerts Allergy Allergy Status Severity Reaction(s) Onset Inactive Treating Comm ents Source Name Type Date Date Clinician Aspirin Propensi Active 2020-08 [facility] ty to 08-22 College adverse 00:00: of reaction 00 Medicin s to e drug APIXABAN Allergy Active 2020-[address] [facility] ASPIRIN Allergy Active [facility] NO KNOWN Allergy Active [facility] Family History Family Member Diagnosis Comments Start Date Stop Date Source Natural father Diabetes [facility] Natural father Heart disease [facility] Natural sister Diabetes [facility] Social History Social Habit Start Date Stop [...] years [facility]00 [facility] [facility] Sex Assigned At [address] [facility] Smoking Status Start Date Stop Date Source Never smoked tobacco [facility] Former smoker 2021-05-03 00:00:00 2021-05-03 00:00:00 [facility] Medications Ordered Filled Start Stop Current Ordering Indication Dosage Frequency Signature Comments Components Source Medication Medication Date Date Medication? Clinician (SIG) Name Name losartan 2021- No 25mg Take 25 mg [facility] (COZAAR) 25 -12 10-24 by mouth [facility] MG tablet 10:03: 00:00 daily. of 52 :00 Medicin e warfarin 2021- No 5mg Take 5 mg [place] (COUMADIN) 10-12-24 by mouth Mario ege 5 MG tablet 10:03: 00:00 daily. of 52 :00 Medicin e atorvastati 2021- No 20mg Take 20 mg [facility] n (LIPITOR) 10-12-24 by mouth. Co llege 20 MG 10:03: 00:00 of tablet 52 :00 Medicin e amiodarone 2021- No 200mg Take 200 [facility] (PACERONE) 10-12-24 mg by [place] 200 MG 10:03: 00:00 mouth of tablet 52 :00 daily. Medicin e digoxin 2021- No 125ug Take 125 [facility] (LANOXIN) 10-12-24 mcg by [place] 125 MCG 10:03: 00:00 mouth of tablet 52 :00 daily. Medicin e furosemide 2021- No 40mg Take 40 mg [facility] (LASIX) 40 -12 10-24 by mouth Mario ege MG tablet 10:03: 00:00 daily. of 52 :00 Medicin e metoprolol 2021- No 12.5mg Take 12.5 [facility] (LOPRESSOR) 2-24 02-24 mg by Colleg e 25 MG 09:59: 00:00 mouth two of tablet 39 :00 times Medicin daily. e lorazepam Yes 1mg Take 1 mg [place] [facility] (ATIVAN) 1 2-24 by mouth Colle ge MG tablet 09:55: nightly as of 38 needed for Medicin Anxiety. e Pantoprazol Yes Take by [place] e Sodium 40 2-24 mouth. Colleg e MG PACK 08:55: of 28 Medicin e senna-docus Yes 1{tbl} Take 1 [facility] ate 2-24 Tablet by [place] (PERICOLACE 08:55: mouth of ) 8.6-50 MG 28 daily. Medici n per tablet e Tamsulosin Yes Take by [facility] HCl 0.4 MG 2-24 mouth. [place] CAPS 08:55: of 28 Medicin e thiamine 0 Yes 100mg Take 100 [facility] 100 MG 2-24 mg by [place] tablet 08:55: mouth of 28 daily. Medicin e gabapentin Yes 100mg Take 100 [facility] (NEURONTIN) 2-24 mg by [place] 100 MG 08:54: mouth 3 of capsule 00 times Medicin daily. e Magnesium Yes Take by [place] Oxide 400 2-24 mouth. [place] (241.3 Mg) 08:54: of MG TABS 00 Medicin e Aspirin 81 0 Yes 81mg Take 81 mg [facility] MG tablet 2-24 by mouth Colleg e 08:54: once. of 00 Medicin e ferrous Yes 325mg Take 325 [facility] [facility] sulfate 325 2-24 mg by [place] (65 Fe) MG 08:35: mouth 3 of tablet 07 times Medicin daily. e trazodone Yes 50mg Take 50 mg [facility] (DESYREL) 2-24 by mouth Colleg e 50 MG 08:35: nightly. of tablet 07 Medicin e amiodarone 0 Yes [id number] 200mg Take 1 [facility] (PACERONE) 2-24 09 Tablet by Mario [facility] 200 MG 00:00: mouth of tablet 00 daily. Medicin e atorvastati Yes [id number] 20mg Take 1 [facility] n (LIPITOR) 2-24 Tablet by Col lege 20 MG 00:00: mouth of tablet 00 daily. Medicin e digoxin 0 Yes [id number] 125ug Take 1 [facility] (LANOXIN) 2-24 09 Tablet by Leonie ge 125 MCG 00:00: mouth of tablet 00 daily. Medicin e furosemide 2021-0 Yes [id number] 40mg Take 1 [facility] (LASIX) 40 2-24 09 Tablet by Mario ege MG tablet 00:00: mouth of 00 daily. Medicin e losartan 2021-0 Yes [id number] 25mg Take 1 [facility] (COZAAR) 25 2-24 09 Tablet by Col [facility] MG tablet 00:00: mouth of 00 daily. Medicin e warfarin Yes [id number] 5mg Take 1 [facility] (COUMADIN) 10-12 Tablet by Mario [facility] 5 MG tablet 00:00: mouth of 00 daily. Medicin e metoprolol Yes [id number] Take 1/2 [facility] (TOPROL XL) 10-12 tablet Colleg [...] 200mg QD Take [address] [facility] (PACERONE) 09-20-04 tablet [facility] 200 MG 00:00: 23:59 (200 mg Medical tablet 00 :00 total) by Center mouth daily for 30 days. thiamine 2021- No 100mg QD Take 1 [facility] MG 09-20-04 tablet [facility] tablet 00:00: 23:59 (100 mg Medical 00 :00 total) by Center mouth daily for 30 days. pantoprazol 2021- No 40mg QD Take [address] [facility] e 09-20-04 tablet (40 [facility] (PROTONIX) 00:00: 23:59 mg [...] QD Take [address] [facility] (COZAAR) 25 09-20-04 tablet (25 L ukes MG tablet 00:00: [...] QD Take [address] [facility] MG EC 09-20- tablet (81 [facility] tablet 00:00: 23:59 mg total) Medic al 00 :00 by mouth Center daily for 30 days. amiodarone 2021- No 200mg QD Take [address] [facility] (PACERONE) 09-20-04 tablet [facility] 200 MG 00:00: 23:59 (200 mg Medical tablet 00 :00 total) by Center mouth daily for 30 days. thiamine 2021-2021- No 100mg QD Take 1 [facility] 100 MG 09-20-04 tablet [facility] tablet 00:00: 23:59 (100 mg [...] hours as needed for Wheezing. docusate 2021-0 2021- No 100mg QD Take [address] [facility] sodium 2- 02-01 mg by [facility] (COLACE) 15:53: 00:00 mouth Medical 100 MG 08 :00 daily. Center capsule apixaban 2021- No 5mg Q.5D Take [address] [facility] (Eliquis) 5 09-19- by mouth 2 L ukes mg Tab 15:53: 00:00 (two) Medical tablet 08 :00 times Center daily. atorvastati 2021-0 2021- No 20mg QD Take [address] [facility] n (LIPITOR) 2 02- by mouth [place] es 20 MG 15:53: 00:00 daily. Medical tablet 08 :00 [place] albuterol 2021-2021- No 2.5mg Take 2.[address] (PROVENTIL) 09-19-01 mg by [facility] 2.5 mg/0.5 15:53: 00:00 nebulizati Medical mL Nebu 08 :00 on every 6 Center nebulizer (six) solution hours as needed for Wheezing. docusate 2021-0 2021- No 100mg QD Take [address] [facility] sodium 2- 02-01 mg by [facility] (COLACE) 15:53: 00:00 mouth Medical 100 MG 08 :00 daily. [place] capsule apixaban 2021- No 5mg Q.5D Take [address] [facility] (Eliquis) 5 09-19- by mouth 2 L ukes mg Tab 15:53: 00:00 (two) Medical tablet 08 :00 times Center daily. atorvastati 2021-0 2021- No 20mg QD Take [address] [facility] n (LIPITOR) 2-08 20- by mouth [place] es 20 MG 15:53: 00:00 daily. Medical tablet 08 :00 Center albuterol 2021-0 2- No 2.5mg Take 2.[address] (PROVENTIL) 2- 02-01 mg by [facility] 2.5 mg/0.5 15:53: [...] (two) times daily for 30 days. gabapentin 2021-2021- No 100mg QD Take [address] [facility] (NEURONTIN) 09-19- capsule Luke s 100 MG 00:00: 23:59 (100 mg Medical capsule 00 :00 total) by Center mouth nightly for 30 days. furosemide 2021-2021- No 40mg Take [address] [facility] (LASIX) 40 09-19- tablet (40 [facility] MG tablet 00:00: 23:59 mg total) Me dical 00 :00 by mouth 2 Center (two) times daily for 30 days. atorvastati 2021- No 20mg QD Take [address] [facility] n (LIPITOR) 09-19- tablet (20 L [facility]kes 20 MG 00:00: [...] .4mg QD Take [address] [facility] (FLOMAX) 09-19- capsule [facility] 0.4 mg Cap 00:00: 23:59 [...] Take [address] [facility] e glycol 09-19- by mouth [facility] (GLYCOLAX) 00:00: 23:59 nightly Med ical 17 gram 00 :00 for 30 Center packet days. metoprolol 2021-2021- No 12.5mg Q.5D Take 0.[address] [facility] [...] (two) times daily for 30 days. atorvastati No 20mg QD Take [address] [facility] [...] Center every evening for 30 days. tamsulosin No .4mg QD Take [address] [facility] [...] :00 for 30 Center packet days. metoprolol No 12.5mg Q.5D Take 0.[address] tartrate 09-19- tablets [facility] (LOPRESSOR) 00:00: 23:59 (12.5 mg M edical 25 MG 00 :00 total) by Center tablet mouth 2 (two) times daily for 30 days. guaiFENesin No 600mg Q.5D Take 1 [facility] I [...] 1{tbl} Take [address] -acetaminop 09-19-08 tablet by [facility] (NORCO 00:00: 23:59 mouth Medic al 5-325) 00 :00 every 6 Center 5-325 mg (six) per tablet hours as needed for Pain for up to 7 days. Max Daily Amount: 4 tablets HYDROcodone 2021- No 1{tbl} Take [address] -acetaminop 09-19-08 tablet by [place] [facility] (NORCO 00:00: 23:59 mouth Medic al 5-325) 00 :00 every 6 Center 5-325 mg (six) per tablet hours as needed for Pain for up to 7 days. Max Daily Amount: 4 tablets HYDROcodone 1{tbl} Take [address] -acetaminop 2-09-26 tablet by [facility] (NORCO 00:00: 23:59 mouth Medic al 5-325) 00 :00 every 6 Center 5-325 mg (six) per tablet hours as needed for Pain for up to 7 days. Max Daily Amount: 4 tablets metoprolol 2020-08- No 75mg Take 75 mg [facility] (LOPRESSOR) 1-30 11-30 by mouth [...] tablet 07 Medicin e verapamil 2020-08 Yes [id number] 120mg Take 1 [facility] (VERELAN) 1-30 capsule by Mario [facility]ge 120 MG CR 00:00: mouth of capsule 00 daily. May Medici n take e additional 1 tablet daily as needed. ondansetron 2020-08 Yes [id number] 4mg Take 1 [facility] (ZOFRAN-ODT 1-30 Tablet by Col [facility]ge ) 4 mg 00:00: mouth of disintegrat 00 every 8 Medic in ing tablet hours as e needed for Nausea. ondansetron 2020-08 Yes [id number] 4mg Take 1 [facility] (ZOFRAN-ODT 1-30 Tablet by Col [facility]ge ) 4 mg 00:00: mouth of disintegrat 00 every 8 Medic in ing tablet hours as e needed for Nausea. verapamil 2020-08 No [id number] 120mg Take 1 [facility] (VERELAN) 1-30 02-24 capsule by Col [facility] 120 MG CR 00:00: 00:00 mouth of capsule 00 :00 daily. May Medici n take e additional 1 tablet daily as needed. atorvastati 2020-08 Yes 20mg Take 20 mg [facility] n (LIPITOR) 1-04 by mouth. [...] tablet 00 Medicin e docusate 2020-08 Yes [facility] sodium 0-17 College (COLACE) 00:00: of 100 MG 00 Medicin capsule e docusate 2020-08 Yes [facility] sodium 0-17 College (COLACE) 00:00: of 100 MG 00 Medicin capsule e metoprolol 2020-08- No [facility] (LOPRESSOR) 0-17 11-30 College 25 MG 00:00: 00:00 of tablet 00 :00 Medicin e promethazin 2020-08 Yes [facility] e 0-11 [facility] (PHENERGAN) 00:00: of 12.5 MG 00 Medicin tablet e promethazin 2020-[address] [facility] 0-11 [place] (PHENERGAN) 00:00: of 12.5 MG 00 Medicin tablet e promethazin 2020-[address] [facility] 0-11 [place] (PHENERGAN) 00:00: of 12.5 MG 00 Medicin [...] 4mg Take [address] [facility] (ZOFRAN-ODT 0-02 - tablet (4 [facility] ) 4 MG 00:00: 00:00 mg total) Medic al disintegrat 00 :00 by mouth Cent er ing tablet every 12 (twelve) hours as needed for Nausea for up to 7 days. Apixaban 5 2020-08- No 5mg Take 5 mg [facility] MG TABS 08-18 by mouth. [facility] 00:00: 05:59 of 00 :00 Medicin e Apixaban 5 2020-08- No 5mg Take 5 mg [facility] MG TABS 08-18 by mouth [place] 00:00: 05:59 two times of 00 :00 [...] (two) times daily for 90 days. polyethylen 2020-2020- No 17g Q.5D Take [address] [facility] e glycol 05-17 by mouth 2 Luke [facility] (GLYCOLAX) 00:00: 23:59 (two) Medic al 17 gram 00 :00 times Center packet daily for 3 days. furosemide 2020-2020- No 40mg Take 40 mg [facility] (LASIX) 40 05-11 by mouth. Col [facility]ge MG tablet 00:00: 05:59 of 00 :00 Medicin e Aspirin 81 2020- No 81mg Take 81 mg [facility] MG tablet 05-11 by mouth. [facility] 00:00: 05:59 of 00 :00 Medicin e furosemide 2020-2020- No 40mg Take 40 mg [facility] (LASIX) 40 05-11 by mouth. Col [facility]ge MG tablet 00:00: 05:59 of 00 :00 Medicin e aspirin 81 2020-2020- No 81mg QD Take [address] [facility] MG EC 05-11- tablet (81 [facility] tablet 00:00: 23:59 mg total) Medic al 00 :00 by mouth Center daily for 90 days. furosemide 2020-2020- No 40mg QD Take [address] [facility] (LASIX) 40 -10 08-22 tablet (40 [facility] MG tablet 00:00: 23:59 mg total) Me dical 00 :00 by mouth Center daily for 90 days. aspirin 81 2020- No 81mg QD Take [address] [facility] MG EC 05-11-22 tablet (81 [facility] tablet 00:00: 23:59 mg total) Medic al 00 :00 by mouth Center daily for 90 days. furosemide 2020-2020- No 40mg QD Take [address] [facility] (LASIX) 40 - 12-22 tablet (40 [facility] MG tablet 00:00: 23:59 mg total) Me dical 00 :00 by mouth Center daily for 90 days. aspirin 81 2020-2020- No 81mg QD Take [address] [facility] MG EC -10 08-22 tablet (81 [facility] tablet 00:00: 23:59 mg [...] (two) times daily for 90 days. ferrous 2020-0 2020- No 325mg Q.5D Take [address] [facility] sulfate 325 05-10 12-21 tablet [facility] (65 FE) MG 00:00: 23:59 (325 mg Med ical tablet 00 :00 total) by Center mouth 2 (two) times daily for 90 days. metoprolol 2020-0 2020- No 75mg Q.5D Take 1.[address] tartrate -09 08-21 tablets [facility] (LOPRESSOR) 00:00: 23:59 (75 mg Med ical 50 MG 00 :00 total) by Center tablet mouth 2 (two) times daily for 90 days. pantoprazol 2020-2020- No 40mg Q.5D Take [address] [facility] e 05-10-21 tablet (40 [facility] (PROTONIX) 00:00: 23:59 mg total) M edical 40 MG 00 :00 by mouth 2 Center tablet (two) times daily for 90 days. amiodarone 0 2020- No 200mg Q.5D Take [address] [facility] [address] (PACERONE) 05-10- tablet [facility] 200 MG 00:00: 23:59 (200 mg Medical tablet 00 :00 total) by Center mouth 2 (two) times daily for 90 days. ferrous 2020-0 2020- No 325mg Q.5D Take [address] [facility] sulfate 325 05-10-21 tablet [facility] (65 FE) MG 00:00: 23:59 (325 mg Med ical tablet 00 :00 total) by Center mouth 2 (two) times daily for 90 days. metoprolol 2020-0 2020- No 75mg Q.5D Take 1.[address] tartrate 05-10-21 tablets [facility] (LOPRESSOR) 00:00: 23:59 (75 mg Med ical 50 MG 00 :00 total) by Center tablet mouth 2 (two) times daily for 90 days. pantoprazol 2020-0 2020- No 40mg Q.5D Take [address] [facility] e 05-10-21 tablet (40 [facility] (PROTONIX) 00:00: 23:59 mg total) M edical 40 MG 00 :00 by mouth 2 Center tablet (two) times daily for 90 days. atorvastati 2019-0 Yes 20mg Take 20 mg [...] Routine, Pain (scale 7-10), PACU FENTanyl PF Yes 25ug 25 mcg, [...] Until Sat04/22/19 at 0814, Routine, Intra-op lactated 2019 2019- No [facility] mL/hr, ity of infusion 11:30: 11:42 1,000 mL, Tomas as 1,000 mL 00 :00 IV Medical Infusion, Branch ONCE, 1 dose, Sat04/22/19 at 0630, Routine, DSU Pre-op Immunizations Ordered Immunization Filled Immunization Date Status Commen ts Source Name Name JotSpot SARS-CoV-2 2021-07-18 Completed [facility] Vaccination 00:00:00 of Medicine Pfizer SARS-CoV-2 2021-07-18 Completed [facility] Vaccination 00:00:00 of Medicine Pneumococcal 2021-07-[address] [facility] Conjugate (Prevnar) 00:00:00 [facility] 13-Valent Pneumococcal 2021-07-[address] [facility] Conjugate (Prevnar) 00:00:00 [facility] Pneumococcal 2021-07-[address] [facility] Conjugate (Prevnar) 00:00:00 [facility] Influenza Four-QIV 2021-07-[address] [facility] PF 6+MO IM ([id number]) 00:00:00 [facility] Influenza Four-QIV 2021-07-[address] [facility] PF 6+MO IM ([id number]) 00:00:00 [facility] Influenza Four-QIV 2021-07-[address] [facility] PF 6+MO IM ([id number]) 00:00:00 [facility] Pneumococcal 2021-05-[address] [facility] Conjugate (Prevnar) 00:00:00 [facility] Pneumococcal 2021-05-[address] [facility] Conjugate (Prevnar) 00:00:00 [facility] Pneumococcal 2021-05-[address] [facility] Conjugate (Prevnar) 00:00:00 [facility] Vital Signs Vital Name Observation Time Observation Value Comments Source WEIGHT 2021-05-06 08:52:00 88.2 kg WEIGHT 2021-05-03 09:54:00 92.08 kg HEIGHT 2021-04-28 15:00:00 165.1 cm Systolic blood 2021-10-12 14:35:00 116 mm[Hg] [facility] Medicine Diastolic blood 2021-10-12 14:35:00 76 mm[Hg] [facility] Medicine Heart rate 2021-10-12 14:35:00 121 /min [facility] Respiratory rate 2021-10-12 14:35:00 16 /min [facility] Body height 2021-10-12 14:35:00 167.6 cm [facility] Body weight 2021-10-12 14:35:00 83.008 kg [facility] BMI 2021-10-12 14:35:00 29.54 kg/m2 [facility] Oxygen saturation in 2021-10-12 14:35:00 99 /min [facility] blood by Medicine Pulse oximetry HEIGHT 2021-10-04 [...] kg Systolic blood 2021-07-18 20:56:00 118 mm[Hg] [facility] pressure Medicine Diastolic blood 2021-07-18 20:56:00 70 mm[Hg] [facility] Medicine Heart rate 2021-07-18 20:56:00 102 /min [facility] Respiratory rate 2021-07-18 20:56:00 16 /min [facility] Body height 2021-07-18 20:56:00 167.6 cm [facility] Body weight 2021-07-18 20:56:00 83.008 kg [facility] ollege of Medicine BMI 2021-07-18 20:56:00 29.54 kg/m2 [facility] Oxygen saturation in 2021-07-18 20:56:00 100 /min [facility] Arterial blood by [facility] Pulse oximetry HEIGHT 2021-07-03 20:00:00 167.6 cm WEIGHT 2021-07-03 20:00:00 81.8 kg HEIGHT 2021-07-03 12:30:00 167.6 cm WEIGHT 2021-07-03 12:30:00 76.204 kg HEIGHT 2021-07-03 20:00:00 167.6 cm WEIGHT 2021-07-03 20:00:00 81.8 kg HEIGHT 2021-07-03 12:30:00 167.6 cm WEIGHT 2021-07-03 12:30:00 76.204 kg Systolic blood 2021-06-22 13:19:00 140 mm[Hg] [facility] pressure Medicine Diastolic blood 2021-06-22 13:19:00 82 mm[Hg] [facility] pressure Medicine Heart rate 2021-06-22 13:19:00 86 /min [facility] Body temperature 2021-06-22 13:19:00 36.83 Lalita [facility] Body height 2021-06-22 13:19:00 167.6 cm [facility] Body weight 2021-06-22 13:19:00 84.732 kg [facility] BMI 2021-06-22 13:19:00 30.15 kg/m2 [facility] C [facility]lege of Medicine WEIGHT [...] blood 2019-04-22 13:42:00 140 mm[Hg] [facility] Diastolic blood 2019-04-22 13:42:00 73 mm[Hg] Unive [facility] Heart rate 2019-04-22 13:42:00 56 /min [facility] Respiratory rate 2019-04-22 13:42:00 16 /min [facility] Oxygen saturation in 2019-04-22 13:42:00 99 /min [facility] Arterial blood by [facility] Pulse oximetry Branch Body temperature 2019-04-22 13:27:00 36.33 Lalita [facility] Body height 2019-04-17 16:00:00 162.6 cm [facility] Body weight 2019-04-17 16:00:00 91.173 kg [facility] BMI 2019-04-17 16:00:00 34.50 kg/m2 [facility] Systolic blood 2019-04-22 13:42:00 140 mm[Hg] [facility] Diastolic blood 2019-04-22 13:42:00 73 mm[Hg] Unive [facility]ity [facility] Heart rate 2019-04-22 13:42:00 56 /min [facility] Respiratory rate 2019-04-22 13:42:00 16 /min [facility] Oxygen saturation in 2019-04-22 13:42:00 99 /min University Arterial blood by [facility] Pulse oximetry Branch Body temperature 2019-04-22 13:27:00 36.33 Lalita [facility] Body height 2019-04-17 16:00:00 162.6 cm [facility] Body weight 2019-04-17 16:00:00 91.173 kg [facility] BMI 2019-04-17 16:00:00 34.50 kg/m2 [facility] Systolic blood 2021-10-04 08:58:00 125 mm[Hg] [facility] Diastolic blood 2021-10-04 08:58:00 74 mm[Hg] [facility] Heart rate 2021-10-04 08:58:00 119 /min [facility] Respiratory rate 2021-10-04 08:58:00 16 /min [facility] Body height 2021-10-04 08:58:00 167.6 cm [facility] Body weight 2021-10-04 08:58:00 74.39 kg [facility] BMI 2021-10-04 08:58:00 26.47 kg/m2 [facility] Oxygen saturation in 2021-10-04 08:58:00 100 /min [facility] Arterial blood by Medical Ce [facility]ter Pulse oximetry Body temperature 2021-09-19 16:03:00 36.56 Lalita [facility] Procedures Procedure Date / Time Performing Source Performed Clinician ELECTROCARDIOGRAM COMPLETE 2021-10-12 Jennifer Kathleen [facility] 15:06:00 Medicine PHOSPHORUS 2021-09-[address] [facility] 03:23:00 [facility] CALCIUM, IONIZED 2021-09-[address] [facility] 03:23:00 [facility] CBC W/PLT COUNT & AUTO 2021-09-19 Serenio, Henry [facility] 03:23:00 [facility] PROTHROMBIN TIME/INR 2021-09-19 Serenio, Henry [facility] 03:23:00 [facility] MAGNESIUM 2021-09-[address] [facility] 03:23:00 [facility] BASIC METABOLIC PANEL 2021-09-[address] [facility] 03:23:00 [facility] CBC W/PLT COUNT & AUTO 2021-09-19 Serenio, Henry [facility]FFER[facility] 03:23:00 [facility] XR CHEST 1 VIEW PORTABLE / BEDSIDE 2021-09-[address] [facility] 04:55:00 [facility] MAGNESIUM 2021-09-18 Serenio, Henry [facility] 03:25:00 [facility] PHOSPHORUS 2021-09-18 Serenio, Henry [facility] 03:25:00 [facility] CALCIUM, IONIZED 2021-09-18 Serenio, Henry [facility] 03:25:00 [facility] CBC W/PLT COUNT & AUTO 2021-09-18 Serenio, Henry [facility] 03:25:00 [facility] PROTHROMBIN TIME/INR 2021-09-18 Serenio, Henry [facility] 03:25:00 [facility] BASIC METABOLIC PANEL 2021-09-[address] [facility] 03:25:00 [facility] COMPREHENSIVE METABOLIC PANEL 2021-09-18 Phong Norwood [facility] 03:25:00 [facility] CBC W/PLT COUNT & AUTO 2021-09-18 Serenio, Henry [facility] 03:25:00 [facility] POCT-GLUCOSE METER 2021-09-17 Juan Carlos Gabino [facility] 17:26:00 [facility] POCT-GLUCOSE METER 2021-09-17 Juan Carlos Gabino [facility] 12:28:00 [facility] POCT-GLUCOSE METER 2021-09-[address] [facility] 07:58:00 [facility] PHOSPHORUS 2021-09-17 Serenio, Henry [facility] 07:50:00 [facility] MAGNESIUM 2021-09-17 Serenio, Henry [facility] 07:50:00 [facility] CALCIUM, IONIZED 2021-09-17 Serenio, Henry [facility] 05:41:00 [facility] CBC W/PLT COUNT & AUTO 2021-09-17 Serenio, Henry [facility] 05:41:00 [facility] PROTHROMBIN TIME/INR 2021-09-17 Serenio, Henry [facility] 05:41:00 [facility] CBC W/PLT COUNT & AUTO 2021-09-17 Serenio, Henry [facility] 05:41:00 [facility] XR CHEST 1 VIEW PORTABLE / BEDSIDE 2021-09-17 Blaine Perez hael [facility] 04:47:00 [facility] POCT-GLUCOSE METER 2021-09-16 Juan Carlos Gabino [facility] 21:47:00 [facility] MAGNESIUM 2021-09-16 Serenio, Henry [facility] 17:37:00 [facility] POCT-GLUCOSE METER 2021-09-16 Juan Carlos Gabino [facility] 17:17:00 [facility] POCT-GLUCOSE METER 2021-09-16 Juan Carlos Gabino [facility] 12:41:00 [facility] POCT-GLUCOSE METER 2021-09-16 Juan Carlos Gabino [facility] 07:47:00 [facility] XR CHEST 1 VIEW PORTABLE / BEDSIDE 2021-09-16 Blaine Perez hael [facility] 05:13:00 [facility] PROTHROMBIN TIME/INR 2021-09-16 Serenio, Henry [facility] 04:03:00 [facility] APTT 2021-09-16 Juan Carlos Gabino [facility] 04:03:00 [facility] BASIC METABOLIC PANEL 2021-09-[address] [facility] 04:03:00 [facility] CBC W/PLT COUNT & AUTO 2021-09-16 Serenio, Henry [facility] 04:03:00 [facility] MAGNESIUM 2021-09-16 Serenio, Henry [facility] 04:03:00 [facility] PHOSPHORUS 2021-09-16 Serenio, Henry [facility] 04:03:00 [facility] CALCIUM, IONIZED 2021-09-16 Serenio, Henry [facility] 04:03:00 [facility] CBC W/PLT COUNT & AUTO 2021-09-16 Serenio, Henry [facility] 04:03:00 [facility] POCT-GLUCOSE METER 2021-09-15 Arnold, Gabino [facility] 20:46:00 [facility] POCT-GLUCOSE METER 2021-09-15 Arnold, Gabino [facility] 17:08:00 [facility] POCT-GLUCOSE METER 2021-09-15 Arnold, Gabino [facility] 12:04:00 [facility] POCT-GLUCOSE METER 2021-09-15 Arnold, Gabino [facility] 07:15:00 [facility] XR CHEST 1 VIEW PORTABLE / BEDSIDE 2021-09-15 SerJamaica [address]p h [facility] 04:42:00 [facility] CBC W/PLT COUNT & AUTO 2021-09-15 Serenio, Henry [facility] 03:54:00 [facility] HEPATIC FUNCTION PANEL 2021-09-15 Serenio, Henry [facility] 03:54:00 [facility] PHOSPHORUS 2021-09-15 Serenio, Henry [facility] 03:54:00 [facility] CALCIUM, IONIZED 2021-09-15 Serenio, Henry [facility] 03:54:00 [facility] CBC W/PLT COUNT & AUTO 2021-09-15 Serenio, Henry [facility] 03:54:00 [facility] MAGNESIUM 2021-09-15 Serenio, Henry [facility] 03:54:00 [facility] PROTHROMBIN TIME/INR 2021-09-15 Serenio, Henry [facility] 03:54:00 [facility] BASIC METABOLIC PANEL 2021-09-[address] [facility] 03:54:00 [facility] APTT 2021-09-[address] [facility] 03:54:00 [facility] ECG 12-LEAD 2021-09-[address] [facility] 01:56:37 [facility] ECG 12-LEAD 2021-09-15 Unknown, Hl7 [facility] 01:56:37 [facility] ECG 12-LEAD 2021-09-15 Unknown, Hl7 [facility] 01:56:37 [facility] ECG 12-LEAD 2021-09-[address] [facility] 01:56:09 [facility] ECG 12-LEAD 2021-09-15 Unknown, Hl7 [facility] 01:56:09 [facility] ECG 12-LEAD 2021-09-15 Unknown, Hl7 [facility] 01:56:09 [facility] ECG 12-LEAD 2021-09-[address] [facility] 01:55:34 [facility] ECG 12-LEAD 2021-09-15 Unknown, Hl7 [facility] 01:55:34 [facility] ECG 12-LEAD 2021-09-15 Unknown, Hl7 [facility] 01:55:34 [facility] PREPARE LEUKO-REDUCED RBC 2021-09-[address] [facility] 23:55:00 [facility] POCT-GLUCOSE METER 2021-09-[address] [facility] 21:03:00 [facility] MAGNESIUM 2021-09-[address] [facility] 20:55:00 [facility] BASIC METABOLIC PANEL 2021-09-[address] [facility] 09:06:00 [facility] POCT-GLUCOSE METER 2021-09-[address] [facility] 07:23:00 [facility] CBC W/PLT COUNT & AUTO 2021-09-[address] [facility] 04:56:00 [facility] HEPATIC FUNCTION PANEL 2021-09-[address] [facility] 04:56:00 [facility] PHOSPHORUS 2021-09-[address] [facility] 04:56:00 [facility] CALCIUM, IONIZED 2021-09-[address] [facility] 04:56:00 [facility] CBC W/PLT COUNT & AUTO 2021-09-[address] [facility]FFER[facility] 04:56:00 [facility] BASIC METABOLIC PANEL 2021-09-[address] [facility] 04:56:00 [facility] MAGNESIUM 2021-09-14 Serfrankio, Henry [facility] 04:56:00 [facility] APTT 2021-09-14 Serenio, Herny [facility] 04:56:00 [facility] PROTHROMBIN TIME/INR 2021-09-14 Serfrankio, Henry [facility] 04:56:00 [facility] XR CHEST 1 VIEW PORTABLE / BEDSIDE 2021-09-14 Marce Vegas h [facility] 00:53:00 [facility] POCT-GLUCOSE METER 2021-09-[address] [facility] 22:05:00 [facility] BASIC METABOLIC PANEL 2021-09-[address] [facility] 17:17:00 [facility] MAGNESIUM 2021-09-[address] [facility] 17:17:00 [facility] POCT-GLUCOSE METER 2021-09-[address] [facility] 17:16:00 [facility] ECG 12-LEAD 2021-09-13 Unknown, Hl7 [facility] 14:33:16 [facility] ECG 12-LEAD 2021-09-13 Unknown, Hl7 [facility] 14:33:16 [facility] ECG 12-LEAD 2021-09-13 Unknown, Hl7 [facility] 13:30:46 [facility] ECG 12-LEAD 2021-09-13 Unknown, Hl7 [facility] 13:30:46 [facility] ECG 12-LEAD 2021-09-13 Unknown, Hl7 [facility] 13:29:58 [facility] ECG 12-LEAD 2021-09-13 Unknown, Hl7 [facility] 13:29:58 [facility] ECG 12-LEAD 2021-09-[address] [facility] 13:29:37 [facility] ECG 12-LEAD 2021-09-13 Unknown, Hl7 [facility] 13:29:37 [facility] ECG 12-LEAD 2021-09-13 Unknown, Hl7 [facility] 13:29:37 [facility] ECG 12-LEAD 2021-09-13 Unknown, Hl7 [facility] 13:29:07 [facility] ECG 12-LEAD 2021-09-13 Unknown, Hl7 [facility] 13:29:07 [facility] ECG 12-LEAD 2021-09-13 Unknown, Hl7 [facility] 13:24:42 [facility] ECG 12-LEAD 2021-09-13 Unknown, Hl7 [facility] 13:24:42 [facility] ECG 12-LEAD 2021-09-[address] [facility] 12:51:16 [facility] ECG 12-LEAD 2021-09-13 Unknown, Hl7 [facility] 12:51:16 [facility] ECG 12-LEAD 2021-09-13 Unknown, Hl7 [facility] 12:51:16 [facility] ECG 12-LEAD 2021-09-13 Unknown, Hl7 [facility] 12:50:38 [facility] ECG 12-LEAD 2021-09-13 Unknown, Hl7 [facility] 12:50:38 [facility] ECG 12-LEAD 2021-09-13 Unknown, Hl7 [facility] 12:46:16 [facility] ECG 12-LEAD 2021-09-13 Unknown, Hl7 [facility] 12:46:16 [facility] POCT-GLUCOSE METER 2021-09-[address] [facility] 11:06:00 [facility] 2D ECHO W/ DOPPLER (CW/PW/COLOR) 2021-09-[address] [facility] 10:29:22 [facility] TRANSFUSE LEUKO-REDUCED RED BLOOD 2021-09-[address] [facility] CELLS 10:15:00 [facility] BASIC METABOLIC PANEL 2021-09-[address] [facility] 10:15:00 [facility] MAGNESIUM 2021-09-[address] [facility] 10:15:00 [facility] TYPE AND SCREEN, AUTOMATED 2021-09-13 Herve [facility]ieves [facility] 08:41:00 [facility] POCT-GLUCOSE METER 2021-09-[address] [facility] 07:48:00 [facility] XR CHEST 1 VIEW PORTABLE / BEDSIDE 2021-09-[address] [facility] 02:03:00 [facility] CBC W/PLT COUNT & AUTO 2021-09-13 Serenio, Henry [facility] 01:50:00 [facility] HEPATIC FUNCTION PANEL 2021-09-13 Serenio, Henry [facility] 01:50:00 [facility] PHOSPHORUS 2021-09-13 Serkaylah, Henry [facility] 01:50:00 [facility] CALCIUM, IONIZED 2021-09-13 Serenio, Henry [facility] 01:50:00 [facility] CBC W/PLT COUNT & AUTO 2021-09-13 Serenisanto, Henry [facility] 01:50:00 [facility] BASIC METABOLIC PANEL 2021-09-13 Serkaylah, Henry [facility] 01:50:00 [facility] MAGNESIUM 2021-09-[address] [facility] 01:50:00 [facility] APTT 2021-09-13 Serkaylah, Henry [facility] 01:50:00 [facility] BLOOD GAS, VENOUS 2021-09-[address] [facility] 01:50:00 [facility] PROTHROMBIN TIME/INR 2021-09-13 Dax, Moy [facility] 01:50:00 [facility] HC VENOUS DOPPLER EXT UNI 2021-09-[address] [facility] 22:09:00 [facility] POCT-GLUCOSE METER 2021-09-[address] [facility] 21:56:00 [facility] POCT-GLUCOSE METER 2021-09-[address] [facility] 16:06:00 [facility] MAGNESIUM 2021-09-12 Serenio, Henry [facility] 11:57:00 [facility] POTASSIUM 2021-09-[address] [facility] 11:57:00 [facility] PHOSPHORUS 2021-09-12 Lzu Elena Kameron Bettencourt [facility] 11:57:00 [facility] CALCIUM, IONIZED 2021-09-12 Luz Elena Kameron Bettencourt [facility] 11:57:00 [facility] POCT-GLUCOSE METER 2021-09-12 [employer], Raz [facility] 11:18:00 [facility] POCT-GLUCOSE METER 2021-09-[facility] 07:50:00 [facility] ECG 12-LEAD 2021-09-12 Unknown, Hl7 [facility] 07:21:58 [facility] ECG 12-LEAD 2021-09-12 Unknown, Hl7 [facility] 07:21:58 [facility] BLOOD GAS, ARTERIAL 2021-09-12 Serenio, Henry [facility] 03:21:00 [facility] CBC W/PLT COUNT & AUTO 2021-09-12 Serenio, Henry [facility] 03:20:00 [facility] BASIC METABOLIC PANEL 2021-09-12 Serenio, Henry [facility] 03:20:00 [facility] HEPATIC FUNCTION PANEL 2021-09-12 Serenio, Henry [facility] 03:20:00 [facility] MAGNESIUM 2021-09-12 Serenio, Henry [facility] 03:20:00 [facility] PHOSPHORUS 2021-09-12 Serenio, Henry [facility] 03:20:00 [facility] CALCIUM, IONIZED 2021-09-12 Serenio, Henry [facility] 03:20:00 [facility] CBC W/PLT COUNT & AUTO 2021-09-12 Serenio, Henry [facility] 03:20:00 [facility] PT/APTT 2021-09-12 Serenio, Henry [facility] 03:20:00 [facility] LACTIC ACID, ARTERIAL 2021-09-12 Serenio, Henry [facility] 03:20:00 [facility] XR CHEST 1 VIEW PORTABLE / BEDSIDE 2021-09-12 Serkaylah Marce alexandra [facility] 01:10:00 [facility] HC VENOUS DOPPLER EXT UNI 2021-09-[address] [facility] 23:31:00 [facility] BASIC METABOLIC PANEL 2021-09-11 Serenio, Henry [facility] 20:26:00 [facility] MAGNESIUM 2021-09-11 Serenio, Henry [facility] 20:26:00 [facility] HEMOGLOBIN AND HEMATOCRIT 2021-09-11 Serenio, Henry [facility] 20:26:00 [facility] POCT-GLUCOSE METER 2021-09-[address] [facility] 20:25:00 [facility] POCT-GLUCOSE METER 2021-09-11 [facility] 16:07:00 [facility] BASIC METABOLIC PANEL 2021-09-[address] [facility] 12:13:00 [facility] MAGNESIUM 2021-09-[address] [facility] 12:13:00 [facility] OXYGEN SATURATION, MEASURED 2021-09-[address] [facility] 12:13:00 [facility] PHOSPHORUS 2021-09-[address] [facility] 12:13:00 [facility] CALCIUM, IONIZED 2021-09-[address] [facility] 12:13:00 [facility] POCT-GLUCOSE METER 2021-09-11 Jing, Jerrell [facility] 11:00:00 [facility] POCT-GLUCOSE METER 2021-09-11 Jing, Jerrell [facility] 08:18:00 [facility] OXYGEN SATURATION, MEASURED 2021-09-11 Jing, Jerrell [facility] 06:13:00 [facility] CBC W/PLT COUNT & AUTO 2021-09-11 Serfrankio, Henry [facility] 03:45:00 [facility] BASIC METABOLIC PANEL 2021-09-11 Serenio, Henry [facility] 03:45:00 [facility] HEPATIC FUNCTION PANEL 2021-09-11 Serenio, Henry [facility] 03:45:00 [facility] MAGNESIUM 2021-09-11 Serenio, Henry [facility] 03:45:00 [facility] PHOSPHORUS 2021-09-11 Serenio, Henry [facility] 03:45:00 [facility] OXYGEN SATURATION, MEASURED 2021-09-11 Serenio, Henry [facility] 03:45:00 [facility] CALCIUM, IONIZED 2021-09-11 Serenio, Henry [facility] 03:45:00 [facility] CBC W/PLT COUNT & AUTO 2021-09-11 Serenio, Henry [facility] 03:45:00 [facility] PT/APTT 2021-09-11 Serenio, Henry [facility] 03:45:00 [facility] LACTIC ACID, ARTERIAL 2021-09-11 Serenio, Henry [facility] 03:45:00 [facility] BLOOD GAS, ARTERIAL 2021-09-11 Serenio, Henry [facility] 03:44:00 [facility] XR CHEST 1 VIEW PORTABLE / BEDSIDE 2021-09-11 Serenio, Marce h [facility] 00:33:00 [facility] BASIC METABOLIC PANEL 2021-09-10 Serenio, Henry [facility] 22:08:00 [facility] MAGNESIUM 2021-09-10 Serenio, Henry [facility] 22:08:00 [facility] HEMOGLOBIN AND HEMATOCRIT 2021-09-10 Serenio, Henry [facility] 22:08:00 [facility] POCT-GLUCOSE METER 2021-09-10 Jing, Jerrell [facility] 22:06:00 [facility] POCT-GLUCOSE METER 2021-09-10 Jing, Jerrell [facility] 16:49:00 [facility] OXYGEN SATURATION, MEASURED 2021-09-[address] [facility] 15:32:00 [facility] 2D ECHO W/ DOPPLER (CW/PW/COLOR) 2021-09-[address] [facility] 14:37:25 [facility] BASIC METABOLIC PANEL 2021-09-10 Serenio, Henry [facility] 12:58:00 [facility] MAGNESIUM 2021-09-10 Serenio, Henry [facility] 12:58:00 [facility] CALCIUM, IONIZED 2021-09-10 Luz Elena, Kameron A [facility] 12:58:00 [facility] POCT-GLUCOSE METER 2021-09-10 Jing, Jerrell [facility] 11:14:00 [facility] ECG 12-LEAD 2021-09-10 Luz Elena, Kameron A [facility] 10:42:11 [facility] ECG 12-LEAD 2021-09-10 Unknown, Hl7 [facility] 10:42:11 [facility] ECG 12-LEAD 2021-09-10 Unknown, Hl7 [facility] 10:42:11 [facility] ECG 12-LEAD 2021-09-10 Unknown, Hl7 [facility] 10:41:54 [facility] ECG 12-LEAD 2021-09-10 Unknown, Hl7 [facility] 10:41:54 [facility] POCT-GLUCOSE METER 2021-09-10 Jing, Jerrell [facility] 07:42:00 [facility] BLOOD GAS, ARTERIAL 2021-09-10 Serenio, Henry [facility] 04:31:00 [facility] CBC W/PLT COUNT & AUTO 2021-09-10 Serenio, Henry [facility] 04:28:00 [facility] BASIC METABOLIC PANEL 2021-09-10 Serenio, Henry [facility] 04:28:00 [facility] HEPATIC FUNCTION PANEL 2021-09-10 Serenio, Henry [facility] 04:28:00 [facility] MAGNESIUM 2021-09-10 Serenio, Henry [facility] 04:28:00 [facility] PHOSPHORUS 2021-09-10 Serenio, Henry [facility] 04:28:00 [facility] CALCIUM, IONIZED 2021-09-10 Serenio, Henry [facility] 04:28:00 [facility] CBC W/PLT COUNT & AUTO 2021-09-10 Serenio, Henry [facility] 04:28:00 [facility] PT/APTT 2021-09-10 Serenio, Henry [facility] 04:28:00 [facility] LACTIC ACID, ARTERIAL 2021-09-10 Serenio, Henry [facility] 04:28:00 [facility] OXYGEN SATURATION, MEASURED 2021-09-10 Serenio, Henry [facility] 04:27:00 [facility] XR CHEST 1 VIEW PORTABLE / BEDSIDE 2021-09-10 Serenio, Ralp h [facility] 01:45:00 [facility] PREPARE LEUKO-REDUCED RBC 2021-09-09 SebastiánonyDiego mena [facility] 23:54:00 [facility] POCT-GLUCOSE METER 2021-09-09 Jing, Jerrell [facility] 22:06:00 [facility] BASIC METABOLIC PANEL 2021-09-09 Serenio, Henry [facility] 19:37:00 [facility] LACTIC ACID, ARTERIAL 2021-09-09 Serenio, Henry [facility] 19:37:00 [facility] MAGNESIUM 2021-09-09 Serenio, Henry [facility] 19:37:00 [facility] PHOSPHORUS 2021-09-09 Serenio, Henry [facility] 19:37:00 [facility] OXYGEN SATURATION, MEASURED 2021-09-09 Serenio, Henry [facility] 19:37:00 [facility] HEMOGLOBIN AND HEMATOCRIT 2021-09-09 Serenio, Henry [facility] 19:37:00 [facility] CALCIUM, IONIZED 2021-09-09 Serenio, Henry [facility] 19:37:00 [facility] OXYGEN SATURATION, MEASURED 2021-09-[address] [facility] 09:44:00 [facility] OXYGEN SATURATION, MEASURED 2021-09-09 JingJean-Claude lathamooq [facility] 05:07:00 [facility] ECG 12-LEAD 2021-09-09 Unknown, Hl7 [facility] 04:50:00 [facility] ECG 12-LEAD 2021-09-09 Unknown, Hl7 [facility] 04:50:00 [facility] ECG 12-LEAD 2021-09-[address] [facility] 04:48:23 [facility] ECG 12-LEAD 2021-09-09 Unknown, Hl7 [facility] 04:48:23 [facility] ECG 12-LEAD 2021-09-09 Unknown, Hl7 [facility] 04:48:23 [facility] ECG 12-LEAD 2021-09-09 Unknown, Hl7 [facility] 04:47:37 [facility] ECG 12-LEAD 2021-09-09 Unknown, Hl7 [facility] 04:47:37 [facility] POCT-GLUCOSE METER 2021-09-09 Jing, Jerrell [facility] 02:53:00 [facility] COMPREHENSIVE METABOLIC PANEL 2021-09-09 K[address] [facility] 02:46:00 [facility] MAGNESIUM 2021-09-[address] [facility] 02:46:00 [facility] PHOSPHORUS 2021-09-[address] [facility] 02:46:00 [facility] CBC (HEMOGRAM ONLY) 2021-09-[address] [facility] 02:46:00 [facility] BLOOD GAS, ARTERIAL 2021-09-[address] [facility] 02:46:00 [facility] CALCIUM, IONIZED 2021-09-[address] [facility] 02:46:00 [facility] XR CHEST 1 VIEW PORTABLE / BEDSIDE 2021-09-[address] [facility] 00:53:00 [facility] PREPARE LEUKO-REDUCED RBC 2021-09-[address] [facility] 23:55:00 [facility] POCT-GLUCOSE METER 2021-09-08 Jing, Jerrell [facility] 21:03:00 [facility] POCT-GLUCOSE METER 2021-09-08 Jing, Jerrell [facility] 18:03:00 [facility] CBC W/PLT COUNT & AUTO 2021-09-08 Compliance Analyst, Nandini [facility]FFER[facility] 15:03:00 [facility] CALCIUM, IONIZED 2021-09-08 Luz Elena Kameron Bettencourt [facility] 15:03:00 [facility] POTASSIUM 2021-09-08 Zully Lagunamalena Bettencourt [facility] 15:03:00 [facility] MAGNESIUM 2021-09-[address] [facility] 15:03:00 [facility] CBC W/PLT COUNT & AUTO 2021-09-[address] [facility] DIFFER[facility] 15:03:00 [facility] POCT-GLUCOSE METER 2021-09-08 Jing, Jerrell [facility] 12:04:00 [facility] TRANSFUSE LEUKO-REDUCED RED BLOOD 2021-09-08 Sebastiánonye Gene [facility] CELLS 11:50:00 [facility] POCT-GLUCOSE METER 2021-09-08 Jing, Jerrell [facility] 10:20:00 [facility] HEMOGLOBIN AND HEMATOCRIT 2021-09-[address] [facility] 10:18:00 [facility] 2D ECHO W/ DOPPLER (CW/PW/COLOR) 2021-09-08 Evonne Ryder rut [facility] 09:30:34 [facility] OXYGEN SATURATION, MEASURED 2021-09-08 Otuonye, Gene [facility] 09:05:00 [facility] POCT-GLUCOSE METER 2021-09-08 Jing, Jerrell [facility] 09:00:00 [facility] LACTIC ACID, ARTERIAL 2021-09-[address] [facility] 08:58:00 [facility] BLOOD GAS, ARTERIAL 2021-09-08 Otuonye, Gene [facility] 08:58:00 [facility] POCT-GLUCOSE METER 2021-09-08 Jing, Jerrell [facility] 08:09:00 [facility] POCT-GLUCOSE METER 2021-09-08 Jing, Jerrell [facility] 06:03:00 [facility] LACTIC ACID, ARTERIAL 2021-09-08 Delmi Usedutch [facility] 05:53:00 [facility] RRL CRITICAL LABS 2021-09-08 [place], Uselyn [facility] (ABG,NA,K,H&H,GLUCOSE) 05:53:00 [facility] enter BLOOD GAS, ARTERIAL 2021-09-08 [place], Uselyn [facility] 05:53:00 [facility] SODIUM NA-STAT LAB 2021-09-08 [place], Uselyn [facility] 05:53:00 [facility] POTASSIUM-STAT LAB 2021-09-08 [place], Uselyn [facility] 05:53:00 [facility] GLUCOSE-STAT LAB 2021-09-08 [place], Uselyn [facility] 05:53:00 [facility] HGB/HCT (H&H) - STAT LAB 2021-09-08 [place], Uselyn [facility] 05:53:00 [facility] POCT-GLUCOSE METER 2021-09-08 Jing, Jerrell [facility] 05:03:00 [facility] POCT-GLUCOSE METER 2021-09-08 Jing, Jerrell [facility] 04:15:00 [facility] OXYGEN SATURATION, MEASURED 2021-09-08 [place], Uselyn [facility] 04:03:00 [facility] BLOOD GAS, ARTERIAL 2021-09-08 [place], Uselyn [facility] 04:02:00 [facility] RRL CRITICAL LABS 2021-09-08 [place], Uselyn [facility] (ABG,NA,K,H&H,GLUCOSE) 04:02:00 [facility] enter SODIUM NA-STAT LAB 2021-09-08 [place], Uselyn [facility] 04:02:00 [facility] POTASSIUM-STAT LAB 2021-09-08 [place], Uselyn [facility] 04:02:00 [facility] GLUCOSE-STAT LAB 2021-09-08 [place], Uselyn [facility] 04:02:00 [facility] HGB/HCT (H&H) - STAT LAB 2021-09-08 [place], Uselyn [facility] 04:02:00 [facility] POCT-GLUCOSE METER 2021-09-08 Jing, Jerrell [facility] 02:59:00 [facility] CBC W/PLT COUNT & AUTO 2021-09-[address] [place] [facility] DIFFERENTIAL 02:31:00 [facility] CBC W/PLT COUNT & AUTO 2021-09-[address] [place] [facility] DIFFERENTIAL 02:31:00 [facility] COMPREHENSIVE METABOLIC PANEL 2021-09-08 Kameron Laguna [facility] 02:31:00 [facility] MAGNESIUM 2021-09-[address] [facility] 02:31:00 [facility] PHOSPHORUS 2021-09-08 Koeckert, Larry [facility] 02:31:00 [facility] CALCIUM, IONIZED 2021-09-08 [place], Uselyn [facility] 02:31:00 [facility] LACTIC ACID, ARTERIAL 2021-09-08 [place], Uselyn [facility] 02:30:00 [facility] RRL CRITICAL LABS 2021-09-08 Delmi, Uselyn [facility] (ABG,NA,K,H&H,GLUCOSE) 02:30:00 [facility] enter BLOOD GAS, ARTERIAL 2021-09-08 [place], Uselyn [facility] 02:30:00 [facility] SODIUM NA-STAT LAB 2021-09-[address] [facility] 02:30:00 [facility] POTASSIUM-STAT LAB 2021-09-08 [place], Uselyn [facility] 02:30:00 [facility] GLUCOSE-STAT LAB 2021-09-08 [place], Uselyn [facility] 02:30:00 [facility] HGB/HCT (H&H) - STAT LAB 2021-09-08 [place], Uselyn [facility] 02:30:00 [facility] POCT-GLUCOSE METER 2021-09-08 Jing, Jerrell [facility] 02:11:00 [facility] POCT-GLUCOSE METER 2021-09-08 Jing, Jerrell [facility] 01:00:00 [facility] OXYGEN SATURATION, MEASURED 2021-09-[address] [facility] 00:55:00 [facility] XR CHEST 1 VIEW PORTABLE / BEDSIDE 2021-09-[address] [facility] 00:43:00 [facility] POCT-GLUCOSE METER 2021-09-07 Jing, Jerrell [facility] 23:59:00 [facility] RRL CRITICAL LABS 2021-09-07 [place], Uselyn [facility] (ABG,NA,K,H&H,GLUCOSE) 23:54:00 [facility] enter BLOOD GAS, ARTERIAL 2021-09-07 [place], Uselyn [facility] 23:54:00 [facility] SODIUM NA-STAT LAB 2021-09-07 [place], Uselyn [facility] 23:54:00 [facility] POTASSIUM-STAT LAB 2021-09-07 [place], Uselyn [facility] 23:54:00 [facility] GLUCOSE-STAT LAB 2021-09-07 [place], Uselyn [facility] 23:54:00 [facility] HGB/HCT (H&H) - STAT LAB 2021-09-07 [place], Uselyn [facility] 23:54:00 [facility] POCT-GLUCOSE METER 2021-09-07 Jing, Jerrell [facility] 23:04:00 [facility] POCT-GLUCOSE METER 2021-09-07 Jing, Jerrell [facility] 22:03:00 [facility] APTT 2021-09-[address] [facility] 21:58:00 [facility] LACTIC ACID, ARTERIAL 2021-09-07 [place], Uselyn [facility] 21:58:00 [facility] RRL CRITICAL LABS 2021-09-07 [place], Uselyn [facility] (ABG,NA,K,H&H,GLUCOSE) 21:57:00 [facility] enter BLOOD GAS, ARTERIAL 2021-09-07 [place], Uselyn [facility] 21:57:00 [facility] SODIUM NA-STAT LAB 2021-09-07 [place], Uselyn [facility] 21:57:00 [facility] POTASSIUM-STAT LAB 2021-09-07 [place], Uselyn [facility] 21:57:00 [facility] GLUCOSE-STAT LAB 2021-09-07 [place], Uselyn [facility] 21:57:00 [facility] HGB/HCT (H&H) - STAT LAB 2021-09-07 [place], Uselyn [facility] 21:57:00 [facility] POCT-GLUCOSE METER 2021-09-[address] [facility] 20:34:00 [facility] BASIC METABOLIC PANEL 2021-09-07 [place], Uselyn [facility] 20:27:00 [facility] RRL CRITICAL LABS 2021-09-07 [place], Uselyn [facility] (ABG,NA,K,H&H,GLUCOSE) 20:27:00 [facility] enter BLOOD GAS, ARTERIAL 2021-09-07 [place], Uselyn [facility] 20:27:00 [facility] SODIUM NA-STAT LAB 2021-09-07 [place], Uselyn [facility] 20:27:00 [facility] POTASSIUM-STAT LAB 2021-09-07 [place], Uselyn [facility] 20:27:00 [facility] GLUCOSE-STAT LAB 2021-09-07 [place], Uselyn [facility] 20:27:00 [facility] HGB/HCT (H&H) - STAT LAB 2021-09-07 [place], Uselyn [facility] 20:27:00 [facility] OXYGEN SATURATION, MEASURED 2021-09-[address] [facility] 19:02:00 [facility] BLOOD GAS, ARTERIAL 2021-09-07 Compliance Analyst, Nandini [facility] 18:48:00 [facility] LACTIC ACID, ARTERIAL 2021-09-07 Compliance Analyst, Nandini [facility] 18:48:00 [facility] CBC (HEMOGRAM ONLY) 2021-09-[address] [facility] 18:48:00 [facility] ECG 12-LEAD 2021-09-07 Kodakandla, [facility] 18:45:09 [facility] ECG 12-LEAD 2021-09-07 Unknown, Hl7 [facility] 18:45:09 [facility] ECG 12-LEAD 2021-09-07 Unknown, Hl7 [facility] 18:45:09 [facility] POCT-GLUCOSE METER 2021-09-[address] [facility] 18:17:00 [facility] LACTIC ACID, ARTERIAL 2021-09-[address] [facility] 17:07:00 [facility] RRL CRITICAL LABS 2021-09-[address] [facility] (ABG,NA,K,H&H,GLUCOSE) 17:07:00 [facility] enter BLOOD GAS, ARTERIAL 2021-09-[address] [facility] 17:07:00 [facility] SODIUM NA-STAT LAB 2021-09-07 Compliance Analyst, Nandini [facility] 17:07:00 [facility] POTASSIUM-STAT LAB 2021-09-07 Compliance Analyst, Nandini [facility] 17:07:00 [facility] GLUCOSE-STAT LAB 2021-09-[address] [facility] 17:07:00 [facility] HGB/HCT (H&H) - STAT LAB 2021-09-[address] [facility] 17:07:00 [facility] TRANSFUSE LEUKO-REDUCED RED BLOOD 2021-09-07 Compliance Analyst, Nandini [facility] CELLS 16:52:00 [facility] XR CHEST 1 VIEW PORTABLE / BEDSIDE 2021-09-[address] [facility] 15:16:00 [facility] CBC W/PLT COUNT & AUTO 2021-09-[address] [facility] DIFFERENTIAL 15:15:00 [facility] BASIC METABOLIC PANEL 2021-09-[address] [facility] 15:15:00 [facility] MAGNESIUM 2021-09-[address] [facility] 15:15:00 [facility] BLOOD GAS, ARTERIAL 2021-09-[address] [facility] 15:15:00 [facility] CBC W/PLT COUNT & AUTO 2021-09-[address] [facility] DIFFERENTIAL 15:15:00 [facility] PROTHROMBIN TIME/INR 2021-09-[address] [facility] 15:15:00 [facility] PT/APTT 2021-09-07 Mau, [facility] 15:15:00 [facility] FIBRINOGEN 2021-09-07 Dixonndyou, [facility] 15:15:00 [facility] LACTIC ACID, ARTERIAL 2021-09-07 Mau [facility] 15:15:00 [facility] PHOSPHORUS 2021-09-07 Kodcorinandla, [facility] 15:15:00 [facility] OXYGEN SATURATION, MEASURED 2021-09-[address] [facility] 15:15:00 [facility] PREPARE RBC 2021-09-[address] [facility] 14:47:00 [facility] PREPARE PLASMA 2021-09-[address] [facility] 14:47:00 [facility] ANESTHESIA PERIPHERAL BLOCK 2021-09-07 Rocky Darrel [facility] 14:40:56 [facility] RRL CRITICAL LABS 2021-09-07 Darrel Hidalgo [facility] (ABG,NA,K,H&H,GLUCOSE) 13:26:59 [facility] enter CALCIUM, IONIZED 2021-09-07 Rocky Darrel [facility] 13:26:59 [facility] BLOOD GAS, ARTERIAL 2021-09-07 Rocky Darrel [facility] 13:26:59 [facility] SODIUM NA-STAT LAB 2021-09-07 Rocky Darrel [facility] 13:26:59 [facility] POTASSIUM-STAT LAB 2021-09-07 Rocky Darrel [facility] 13:26:59 [facility] GLUCOSE-STAT LAB 2021-09-07 Rocky Darrel [facility] 13:26:59 [facility] HGB/HCT (H&H) - STAT LAB 2021-09-07 Darrel Hidalgo [facility] 13:26:59 [facility] POCT-ACT 2021-09-[address] [facility] 13:03:00 [facility] PLATELET COUNT 2021-09-[address] [facility] 12:59:25 [facility] CBC W/PLT COUNT & AUTO 2021-09-[address] [facility] DIFFERENTIAL 12:59:00 [facility] CBC W/PLT COUNT & AUTO 2021-09-[address] [facility] DIFFERENTIAL 12:59:00 [facility] RRL CRITICAL LABS 2021-09-[address] [facility] (ABG,NA,K,H&H,GLUCOSE) 12:42:36 [facility] enter CALCIUM, IONIZED 2021-09-[address] [facility] 12:42:36 [facility] PROTHROMBIN TIME/INR 2021-09-07 Darrel Hidalgo [facility] 12:42:36 [facility] APTT 2021-09-07 Darrel Hidalgo [facility] 12:42:36 [facility] FIBRINOGEN 2021-09-[address] [facility] 12:42:36 [facility] BLOOD GAS, ARTERIAL 2021-09-[address] [facility] 12:42:36 [facility] SODIUM NA-STAT LAB 2021-09-[address] [facility] 12:42:36 [facility] POTASSIUM-STAT LAB 2021-09-[address] [facility] 12:42:36 [facility] GLUCOSE-STAT LAB 2021-09-07 Darrel Hidalgo [facility] 12:42:36 [facility] HGB/HCT (H&H) - STAT LAB 2021-09-07 Darrel Hidalgo [facility] 12:42:36 [facility] POCT-ACT 2021-09-[address] [facility] 12:15:00 [facility] RRL CRITICAL LABS 2021-09-07 Ramya Colby [facility] (ABG,NA,K,H&H,GLUCOSE) 12:13:19 [facility] enter BLOOD GAS, ARTERIAL 2021-09-07 Ramya Colby [facility] 12:13:19 [facility] SODIUM NA-STAT LAB 2021-09-[address] [facility] 12:13:19 [facility] POTASSIUM-STAT LAB 2021-09-07 Ramya Colby [facility] 12:13:19 [facility] GLUCOSE-STAT LAB 2021-09-[address] [facility] 12:13:19 [facility] HGB/HCT (H&H) - STAT LAB 2021-09-[address] [facility] 12:13:19 [facility] TISSUE EXAM 2021-09-[address] [facility] 12:07:00 [facility] POCT-ACT 2021-09-[address] [facility] 11:41:00 [facility] LACTIC ACID, ARTERIAL 2021-09-[address] [facility] 11:39:09 [facility] RRL CRITICAL LABS 2021-09-[address] [facility] (ABG,NA,K,H&H,GLUCOSE) 11:39:04 [facility] enter BLOOD GAS, ARTERIAL 2021-09-[address] [facility] 11:39:04 [facility] SODIUM NA-STAT LAB 2021-09-[address] [facility] 11:39:04 [facility] POTASSIUM-STAT LAB 2021-09-[address] [facility] 11:39:04 [facility] GLUCOSE-STAT LAB 2021-09-[address] [facility] 11:39:04 [facility] HGB/HCT (H&H) - STAT LAB 2021-09-[address] [facility] 11:39:04 [facility] MISCELLANEOUS LAB ORDER 2021-09-[address] [facility] 11:29:37 [facility] RRL CRITICAL LABS 2021-09-[address] [facility] (ABG,NA,K,H&H,GLUCOSE) 11:07:40 [facility] enter BLOOD GAS, ARTERIAL 2021-09-[address] [facility] 11:07:40 [facility] SODIUM NA-STAT LAB 2021-09-[address] [facility] 11:07:40 [facility] POTASSIUM-STAT LAB 2021-09-[address] [facility] 11:07:40 [facility] GLUCOSE-STAT LAB 2021-09-[address] [facility] 11:07:40 [facility] HGB/HCT (H&H) - STAT LAB 2021-09-[address] [facility] 11:07:40 [facility] POCT-ACT 2021-09-[address] [facility] 10:57:00 [facility] LACTIC ACID, ARTERIAL 2021-09-[address] [facility] 10:44:04 [facility] POCT-ACT 2021-09-[address] [facility] 10:41:00 [facility] RRL CRITICAL LABS 2021-09-[address] [facility] (ABG,NA,K,H&H,GLUCOSE) 10:38:15 [facility] enter BLOOD GAS, ARTERIAL 2021-09-[address] [facility] 10:38:15 [facility] SODIUM NA-STAT LAB 2021-09-[address] [facility] 10:38:15 [facility] POTASSIUM-STAT LAB 2021-09-[address] [facility] 10:38:15 [facility] GLUCOSE-STAT LAB 2021-09-[address] [facility] 10:38:15 [facility] HGB/HCT (H&H) - STAT LAB 2021-09-[address] [facility] 10:38:15 [facility] ANESTHESIA ROXI 2021-09-[address] [facility] 10:08:54 [facility] POCT-ACT 2021-09-07 Jing, Jerrell [facility] 10:07:00 [facility] POCT-ACT 2021-09-07 Jing, Jerrell [facility] 09:32:00 [facility] RRL CRITICAL LABS 2021-09-[address] [facility] (ABG,NA,K,H&H,GLUCOSE) 08:35:02 [facility] enter CALCIUM, IONIZED 2021-09-[address] [facility] 08:35:02 [facility] BLOOD GAS, ARTERIAL 2021-09-[address] [facility] 08:35:02 [facility] SODIUM NA-STAT LAB 2021-09-[address] [facility] 08:35:02 [facility] POTASSIUM-STAT LAB 2021-09-[address] [facility] 08:35:02 [facility] GLUCOSE-STAT LAB 2021-09-[address] [facility] 08:35:02 [facility] HGB/HCT (H&H) - STAT LAB 2021-09-[address] [facility] 08:35:02 [facility] ROBOTIC MITRAL VALVE REPLACEMENT 2021-09-[address] [facility] 07:45:00 [facility] ROBOTIC THORACOSCOPY 2021-09-[address] [facility] [facility] (VATS),LIGATION ATRIAL APPENDAGE 07:45:00 [facility] MAZE PROCEDURE, MODIFIED 2021-09-[address] [facility] 07:45:00 [facility] ECHOCARDIOGRAM, 3D, 2021-09-[address] [facility] TRANSESOPHAGEAL 07:45:00 [facility] ECG 12-LEAD 2021-09-[address] [facility] 04:35:18 [facility] ECG 12-LEAD 2021-09-07 Unknown, Hl7 [facility] 04:35:18 [facility] ECG 12-LEAD 2021-09-07 Unknown, Hl7 [facility] 04:35:18 [facility] TYPE AND SCREEN, AUTOMATED 2021-09-07 NievesHerve [facility] 02[facility]59:00 [facility] CBC W/PLT COUNT & AUTO 2021-09-[address] [place] [address] [facility] DIFFERENTIAL 02:59:00 [facility] HEMOGLOBIN A1C 2021-09-07 Nieves, Herve [facility] 02:59:00 [facility] LIPID PANEL 2021-09-07 Nieves, Herve [facility] 02:59:00 [facility] APTT 2021-09-[address] [facility] 02:59:00 [facility] TSH 2021-09-[address] [facility] 02:59:00 [facility] CBC W/PLT COUNT & AUTO 2021-09-[address] [place] [facility] DIFFERENTIAL 02:59:00 [facility] PROTHROMBIN TIME/INR 2021-09-[address] [facility] 02:59:00 [facility] BLOOD GAS, VENOUS 2021-09-[address] [facility] 02:59:00 [facility] COMPREHENSIVE METABOLIC PANEL 2021-09-[address] [facility] 02:59:00 [facility] MAGNESIUM 2021-09-[address] [facility] 02:59:00 [facility] PHOSPHORUS 2021-09-[address] [facility] 02:59:00 [facility] POCT-GLUCOSE METER 2021-09-06 Jing, Jerrell [facility] 21:09:00 [facility] APTT 2021-09-[address] [facility] 17:52:00 [facility] PROTHROMBIN TIME/INR 2021-09-[address] [facility] 17:52:00 [facility] POCT-GLUCOSE METER 2021-09-06 Jing, Jerrell [facility] 17:14:00 [facility] POCT-GLUCOSE METER 2021-09-06 Jing, Jerrell [facility] 11:09:00 [facility] APTT 2021-09-[address] [facility] 11:05:00 [facility] POCT-GLUCOSE METER 2021-09-06 Jing, Jerrell [facility] 08:04:00 [facility] ECG 12-LEAD 2021-09-06 Kameron Laguna A [facility] 07:15:01 [facility] ECG 12-LEAD 2021-09-06 Unknown, Hl7 [facility] 07:15:01 [facility] ECG 12-LEAD 2021-09-06 Unknown, Hl7 [facility] 07:15:01 [facility] ECG 12-LEAD 2021-09-06 Unknown, Hl7 [facility] 07:12:35 [facility] ECG 12-LEAD 2021-09-06 Unknown, Hl7 [facility] 07:12:35 [facility] CBC W/PLT COUNT & AUTO 2021-09-[address] [place] [address] [facility] DIFFERENTIAL 05:03:00 [facility] BLOOD GAS, VENOUS 2021-09-06 Luz Elena, Kameron A [facility] 05:03:00 [facility] BASIC METABOLIC PANEL 2021-09-06 Luz Elena Kameron A [facility] 05:03:00 [facility] MAGNESIUM 2021-09-06 Luz Elena Kameron A [facility] 05:03:00 [facility] CBC W/PLT COUNT & AUTO 2021-09-[address] [place] [facility] DIFFERENTIAL 05:03:00 [facility] APTT 2021-09-06 Luz Elena Kameron A [facility] 05:03:00 [facility] APTT 2021-09-05 Jing, Jerrell [facility] 22:08:00 [facility] POCT-GLUCOSE METER 2021-09-05 Jing, Jerrell [facility] 21:45:00 [facility] ECG 12-LEAD 2021-09-05 Luz Elena Kameron A [facility] 20:35:24 [facility] ECG 12-LEAD 2021-09-05 Unknown, Hl7 [facility] 20:35:24 [facility] ECG 12-LEAD 2021-09-05 Unknown, Hl7 [facility] 20:35:24 [facility] POCT-GLUCOSE METER 2021-09-05 Jing, Jerrell [facility] 17:04:00 [facility] APTT 2021-09-05 Zully [address]an A [facility] 16:36:00 [facility] B-TYPE NATRIURETIC FACTOR (BNP) 2021-09-[address] [facility] 16:36:00 [facility] BASIC METABOLIC PANEL 2021-09-05 Luz Elena K[facility]on [facility] 16:36:00 [facility] MAGNESIUM 2021-09-05 Luz Elena Kameron A [facility] 16:36:00 [facility] POCT-GLUCOSE METER 2021-09-05 Jing, Jerrell [facility] 11:28:00 [facility] POCT-GLUCOSE METER 2021-09-05 Jing, Jerrell [facility] 08:21:00 [facility] APTT 2021-09-05 Luz Elena Kameron A [facility] 08:16:00 [facility] APTT 2021-09-05 Zully Lagunaan A [facility] 04:28:00 [facility] BASIC METABOLIC PANEL 2021-09-05 [address] Lag[address] [facility] 04:28:00 [facility] MAGNESIUM 2021-09-05 [address] [facility] 04:28:00 [facility] BLOOD GAS, VENOUS 2021-09-05 Kameron Laguna A [facility] 04:28:00 [facility] VANCOMYCIN LEVEL, TROUGH 2021-09-[address] [facility] 04:28:00 [facility] XR CHEST 1 VIEW PORTABLE / BEDSIDE 2021-09-05 Nhung Thakurspenser unmi [facility] 00:32:00 [facility] POCT-GLUCOSE METER 2021-09-04 Jing, Jerrell [facility] 23:57:00 [facility] APTT 2021-09-04 Kameron Laguna A [facility] 22:30:00 [facility] POCT-GLUCOSE METER 2021-09-04 Jing, Jerrell [facility] 22:29:00 [facility] HC CAROTID DOPPLER LILO 2021-09-[address] [facility] 20:37:00 [facility] POCT-GLUCOSE METER 2021-09-04 Jing, Jerrell [facility] 18:02:00 [facility] BASIC METABOLIC PANEL 2021-09-04 Kameron Laguna A [facility] 18:02:00 [facility] MAGNESIUM 2021-09-04 Luz Elena Kameron A [facility] 18:02:00 [facility] BLOOD GAS, VENOUS 2021-09-04 Luz Elena Kameron A [facility] 18:02:00 [facility] CTA CHEST 2021-09-[address] [facility] 15:55:00 [facility] CTA ABDOMEN & PELVIS 2021-09-[address] [facility] 15:55:00 [facility] APTT 2021-09-04 Luz Elena, Kameron A [facility] 15:16:00 [facility] APTT 2021-09-04 Luz Elena, Kameron A [facility] 14:00:00 [facility] APTT 2021-09-04 Luz Elena, Kameron A [facility] 12:58:00 [facility] POCT-GLUCOSE METER 2021-09-04 Jing, Jerrell [facility] 12:21:00 [facility] TRANSESOPHAGEAL ECHO 2021-09-04 Kameron Laguna A [facility] 10:56:06 [facility] POCT-GLUCOSE METER 2021-09-04 Jing, Jerrell [facility] 09:29:00 [facility] CBC W/PLT COUNT & AUTO 2021-09-04 Ali, Hiba Cooper [facility] DIFFERENTIAL 04:47:00 [facility] CBC W/PLT COUNT & AUTO 2021-09-04 Ali, Hiba Cooper [facility] DIFFERENTIAL 04:47:00 [facility] BASIC METABOLIC PANEL 2021-09-04 Kameron Laguna A [facility] 04:47:00 [facility] MAGNESIUM 2021-09-04 Zully [address]an [address] [facility] 04:47:00 [facility] APTT 2021-09-04 Kameron Laguna A [facility] 04:47:00 [facility] BLOOD GAS, VENOUS 2021-09-04 Luz Elena, Kameron A [facility] 04:36:00 [facility] XR CHEST 1 VIEW PORTABLE / BEDSIDE 2021-09-[address] [facility] 00:40:00 [facility] POCT-GLUCOSE METER 2021-09-03 Jing, Jerrell [facility] 22:04:00 [facility] POCT-GLUCOSE METER 2021-09-03 Jing, Jerrell [facility] 16:27:00 [facility] PROCALCITONIN 2021-09-03 Kameron Laguna A [facility] 16:04:00 [facility] BASIC METABOLIC PANEL 2021-09-03 Zully Lagunaan A [facility] 16:04:00 [facility] MAGNESIUM 2021-09-03 Kameron Laguna A [facility] 16:04:00 [facility] BLOOD GAS, VENOUS 2021-09-[address] [facility] 16:04:00 [facility] ECG 12-LEAD 2021-09-[address] [facility] 15:00:16 [facility] ECG 12-LEAD 2021-09-03 Unknown, Hl7 [facility] 15:00:16 [facility] ECG 12-LEAD 2021-09-03 Unknown, Hl7 [facility] 15:00:16 [facility] ECG 12-LEAD 2021-09-03 Unknown, Hl7 [facility] 14:59:48 [facility] ECG 12-LEAD 2021-09-03 Unknown, Hl7 [facility] 14:59:48 [facility] 2D ECHO W/ DOPPLER (CW/PW/COLOR) 2021-09-[address] [facility] 09:48:42 [facility] CONT WAVE PULSED DOPPLER 2021-09-03 Luz Elena Kameron Bettencourt [facility] 09:44:53 [facility] COLOR-FLOW MAPPING 2021-09-[address] [facility] 09:44:52 [facility] ECG 12-LEAD 2021-09-03 Unknown, Hl7 [facility] 07:30:39 [facility] ECG 12-LEAD 2021-09-03 Unknown, Hl7 [facility] 07:30:39 [facility] ECG 12-LEAD 2021-09-03 Unknown, Hl7 [facility] 07:30:39 [facility] ECG 12-LEAD 2021-09-03 Unknown, Hl7 [facility] 07:30:02 [facility] ECG 12-LEAD 2021-09-03 Unknown, Hl7 [facility] 07:30:02 [facility] ECG 12-LEAD 2021-09-03 Unknown, Hl7 [facility] 07:30:02 [facility] BLOOD CULTURE 2021-09-[address] [facility] 06:56:00 [facility] CBC W/PLT COUNT & AUTO 2021-09-03 Ali, Kevona Cooper [facility] DIFFERENTIAL 04:31:00 [facility] CBC W/PLT COUNT & AUTO 2021-09-03 Ali, Hiba [facility] DIFFERENTIAL 04:31:00 [facility] BASIC METABOLIC PANEL 2021-09-03 Ali, Hiba [facility] 04:31:00 [facility] B-TYPE NATRIURETIC FACTOR (BNP) 2021-09-03 Nadimpalli, [facility] 04:31:00 [facility] BLOOD GAS, VENOUS 2021-09-03 Falohun, Adewunmi [facility] 04:31:00 [facility] HIGH SENSITIVITY TROPONIN I 2021-09-03 Adhi, Otis [facility] 04:31:00 [facility] LACTIC ACID, VENOUS 2021-09-03 Falohun, [facility]wunmi [facility] 04:31:00 [facility] MAGNESIUM 2021-09-03 Kameron Laguna Rut [facility] 04:31:00 [facility] XR CHEST 1 VIEW PORTABLE / BEDSIDE 2021-09-03 Lisaun, Adew unmi [facility] 02:05:00 [facility] HIGH SENSITIVITY TROPONIN I 2021-09-02 Adhi, Otis [facility] 22:33:00 [facility] LACTIC ACID, VENOUS 2021-09-02 Falohun, Adewunmi [facility] 22:33:00 [facility] LACTIC ACID, VENOUS 2021-09-02 Nadimpalli, [facility] 19:28:00 [facility] BASIC METABOLIC PANEL 2021-09-02 Nadimpalli, [facility] 19:28:00 [facility] B-TYPE NATRIURETIC FACTOR (BNP) 2021-09-02 Ali, Hiba Cooper [facility] 17:17:00 [facility] PROCALCITONIN 2021-09-02 Ali, Hiba Cooper [facility] 17:17:00 [facility] HIGH SENSITIVITY TROPONIN I 2021-09-02 Ali, Hiba Cooper [facility] 17:17:00 [facility] LACTIC ACID, ARTERIAL 2021-09-02 Ali, Hiba [facility] 17:17:00 [facility] POCT-BLOOD GASES, ARTERIAL 2021-09-02 Ali, [facility]iba [facility] 17:15:00 [facility] POCT-SODIUM 2021-09-02 Ali, Kevona Cooper [facility] 17:15:00 [facility] POCT-POTASSIUM 2021-09-02 Ali, Hiba Cooper [facility] 17:15:00 [facility] POCT-HEMOGLOBIN 2021-09-02 Ali, Hiba Cooper [facility] 17:15:00 [facility] POCT-HEMATOCRIT 2021-09-02 Ali, Hiba Cooper [facility] 17:15:00 [facility] POCT-GLUCOSE 2021-09-02 Ali, Hiba Cooper [facility] 17:15:00 [facility] XR CHEST 1 VIEW PORTABLE / BEDSIDE 2021-09-02 Ali, Edith Collinsh ir [facility] 16:58:00 [facility] ECG 12-LEAD 2021-09-02 Unknown, Hl7 [facility] 16:50:07 [facility] ECG 12-LEAD 2021-09-[address] [facility] 16:50:07 [facility] ECG 12-LEAD 2021-09-02 Unknown, Hl7 [facility] 16:50:07 [facility] ECG 12-LEAD 2021-09-02 Unknown, Hl7 [facility] 16:49:46 [facility] ECG 12-LEAD 2021-09-02 Unknown, Hl7 [facility] 16:49:46 [facility] ECG 12-LEAD 2021-09-02 Unknown, Hl7 [facility] 16:49:46 [facility] ECG 12-LEAD 2021-09-02 Unknown, Hl7 [facility] 16:48:34 [facility] ECG 12-LEAD 2021-09-02 Unknown, Hl7 [facility] 16:48:34 [facility] ECG 12-LEAD 2021-09-02 Unknown, Hl7 [facility] 16:48:19 [facility] ECG 12-LEAD 2021-09-02 Unknown, Hl7 [facility] 16:48:19 [facility] CBC W/PLT COUNT & AUTO 2021-09-02 Ali, Hiba [facility] DIFFERENTIAL 05:14:00 [facility] CBC W/PLT COUNT & AUTO 2021-09-02 Ali, Hiba [facility] DIFFER[facility] 05:14:00 [facility] BASIC METABOLIC PANEL 2021-09-[address] [facility] 05:14:[address] [facility] CT CHEST WITH IV CONTRAST 2021-09-[address] [facility] 23:45:00 [facility] FERRITIN 2021-09-[address] [facility] 17:14:00 [facility] IRON, TIBC, % SAT. (WITHOUT 2021-09-[address] [facility] FERRITIN) 17:14:00 [facility] 2D ECHO W/ DOPPLER (CW/PW/COLOR) 2021-09-[address] [facility] 13:34:34 [facility] [place] ESOPH SWALLOW FUNCT WITH CINE 2021-09-[address] [facility] VIDEO 11:43:00 [facility] REPORT OF PROCEDURE - ENDOSCOPY 2021-09-01 Maria Teresa Meliza [facility] URL 08:31:23 [facility] ESOPHAGOGASTRODUODENOSCOPY 2021-09-[address] [facility] 07:49:00 [facility] CBC W/PLT COUNT & AUTO 2021-09-01 Michael Cristina D [facility] DIFFERENTIAL 05:48:00 [facility] CBC W/PLT COUNT & AUTO 2021-09-01 Junie Cristinashjuan josé D [facility] DIFFERENTIAL 05:48:00 [facility] BASIC METABOLIC PANEL 2021-09-01 Junie Cristinashjuan josé D [facility] 05:48:00 [facility] HEPATIC FUNCTION PANEL 2021-09-01 Jonnie Yashash D [facility] 05:48:00 [facility] PROTHROMBIN TIME/INR 2021-09-[address] [facility] 05:48:00 [facility] MAGNESIUM 2021-09-01 Jonnie Yashash D [facility] 05:48:00 [facility] PHOSPHORUS 2021-09-01 Jonnie [address]ashash D [facility] 05:48:00 [facility] TSH/FREE T4 IF INDICATED 2021-09-[address] [facility] 05:48:00 [facility] ECG 12-LEAD 2021-08-31 Unknown, Hl7 [facility] 16:26:58 [facility] ECG 12-LEAD 2021-08-31 Unknown, Hl7 [facility] 16:26:58 [facility] ECG 12-LEAD 2021-08-31 Unknown, Hl7 [facility] 16:26:58 [facility] SARS-COV2/RT-PCR ([facility]) 2021-08-[address] [facility] 14:36:00 [facility] LACTIC ACID, VENOUS 2021-08-31 Kirstenwalkerveronica, Alexa [facility] 12:48:00 [facility] CBC W/PLT COUNT & AUTO 2021-08-31 Wilyi, Alexa [facility] DIFFER[facility] 12:46:00 [facility] BASIC METABOLIC PANEL 2021-08-31 Kirstenwalkerveronica, Alexa [facility] 12:46:00 [facility] CBC W/PLT COUNT & AUTO 2021-08-31 Kirstenwalkerveronica, Alexa [facility] 12:46:00 [facility] HIGH SENSITIVITY TROPONIN I 2021-08-31 Kirstenwalkerveronica, Alexa [facility] 12:46:00 [facility] PROTHROMBIN TIME/INR 2021-08-31 Kirstenwalkeri, Alexa [facility] 12:46:00 [facility] APTT 2021-08-31 Kirstenally, Alexa [facility] 12:46:00 [facility] EKG-SCANNED 2021-08-[address] [facility] 00:00:00 [facility] ELECTROCARDIOGRAM COMPLETE 2021-07-18 Karon Christian [facility] 21:05:00 [place] ESOPHAGUS 2021-07-[address] [facility] 10:07:00 [facility] BASIC METABOLIC PANEL 2021-07-[address] [facility] 04:05:00 [facility] SARS-COV2/RT-PCR ([facility]) 2021-07-[address] [facility] 16:14:00 [facility] D-DIMER 2021-07-[address] [facility] 16:14:00 [facility] BLOOD GAS, VENOUS 2021-07-[address] [facility] 16:14:00 [facility] XR CHEST 2 VIEWS 2021-07-[address] [facility] 13:42:00 [facility] CBC W/PLT COUNT & AUTO 2021-07-[address] [facility] DIFFER[facility] 13:28:00 [facility] B-TYPE NATRIURETIC FACTOR (BNP) 2021-07-[address] [facility] 13:28:00 [facility] COMPREHENSIVE METABOLIC PANEL 2021-07-[address] [facility] 13:28:00 [facility] CBC W/PLT COUNT & AUTO 2021-07-[address] [facility] DIFFERENTIAL 13:28:00 [facility] LIPASE 2021-07-[address] [facility] 13:28:00 [facility] HIGH SENSITIVITY TROPONIN I 2021-07-[address] [facility] 13:28:00 [facility] ECG 12-LEAD 2021-07-[address] [facility] 13:11:56 [facility] ECG 12-LEAD 2021-07-03 Unknown, Hl7 [facility] 13:11:56 [facility] EKG-SCANNED 2021-07-03 ProviderBrigid [facility] 00:[facility]:00 [facility] HEMOGLOBIN AND HEMATOCRIT 2021-05-[address] [facility] 04:39:00 [facility] PREPARE LEUKO-REDUCED RBC 2021-05-[address] [facility] 23:54:00 [facility] HEMOGLOBIN AND HEMATOCRIT 2021-05-25 Gadicheryou, Noa [facility] 18:30:00 [facility] HEMOGLOBIN AND HEMATOCRIT 2021-05-25 Gadkodierla, Noa [facility] 10:43:00 [facility] HEMOGLOBIN AND HEMATOCRIT 2021-05-25 Gadicherla, Noa [facility] 04:19:00 [facility] HEMOGLOBIN AND HEMATOCRIT 2021-05-24 Nomi Berrios [facility] 16:22:00 [facility] HEMOGLOBIN AND HEMATOCRIT 2021-05-[address] [facility] 08:03:00 [facility] BASIC METABOLIC PANEL (7) 2021-05-[address] [facility] 08:03:00 [facility] TRANSFUSE LEUKO-REDUCED RED BLOOD 2021-05-24 Rajha, Suellen [facility] CELLS 01:55:00 [facility] SARS-COV2/RT-PCR ([facility]) 2021-05-23 Rajha, Suellen [facility] 19:01:00 [facility] TYPE AND SCREEN, AUTOMATED 2021-05-23 Rajha, Suellen [facility] 16:24:00 [facility] CBC W/PLT COUNT & AUTO 2021-05-23 Rajha, Suellen [facility] DIFFERENTIAL 16:24:00 [facility] CBC W/PLT COUNT & AUTO 2021-05-23 Rajha, Suellen [facility] DIFFERENTIAL 16:24:00 [facility] PT/APTT 2021-05-23 Rajha, Suellen [facility] 16:24:00 [facility] COMPREHENSIVE METABOLIC PANEL 2021-05-23 Rajha, Suellen [facility]00 [facility] LIPASE 2021-05-23 Rajha, Suellen [facility] 16:23:00 [facility] ECG 12-LEAD 2021-05-23 Unknown, Hl7 [facility] 15:13:04 [facility] EKG-SCANNED 2021-05-23 Provider, Default [facility] 00:00:[address] [facility] CBC W/PLT COUNT & AUTO 2021-05-20 Alao, Titilola [facility] DIFFERENTIAL 04:10:00 [facility] CBC W/PLT COUNT & AUTO 2021-05-20 Alao, Titilola [facility] DIFFERENTIAL 04:10:00 [facility] BASIC METABOLIC PANEL (7) 2021-05-20 Alao, Titilola [facility] 04:10:00 [facility] CBC (HEMOGRAM ONLY) 2021-05-[address] [facility] 03:43:00 [facility] BASIC METABOLIC PANEL (7) 2021-05-17 [facility]egan [facility]00 [facility] HEMOGLOBIN AND HEMATOCRIT 2021-05-16 Raegan Rico [facility] 20:11:00 [facility] REPORT OF PROCEDURE - ENDOSCOPY 2021-05-[address] [facility] URL 11:57:57 [facility] ESOPHAGOGASTRODUODENOSCOPY 2021-05-16 Jimmy [facility]ers [facility] 11:15:00 [facility] CBC W/PLT COUNT & AUTO 2021-05-[address] [facility] DIFFERENTIAL 04:48:00 [facility] CBC W/PLT COUNT & AUTO 2021-05-[address] [facility] DIFFERENTIAL 04:48:00 [facility] BASIC METABOLIC PANEL (7) 2021-05-[address] [facility] 04:48:00 [facility] HEMOGLOBIN AND HEMATOCRIT 2021-05-[address] [facility] 23:52:00 [facility] SARS-COV2/RT-PCR ([facility]) 2021-05-[address] [facility] 16:46:00 [facility] ECG 12-LEAD 2021-05-15 Unknown, Hl7 [facility] 15:26:10 [facility] TYPE AND SCREEN, AUTOMATED 2021-05-15 Jacobo [facility]ward [facility] 15:00:00 [facility] CBC W/PLT COUNT & AUTO 2021-05-[address] [facility] DIFFERENTIAL 15:00:00 [facility] CBC W/PLT COUNT & AUTO 2021-05-[address] [facility] DIFFERENTIAL 15:00:00 [facility] COMPREHENSIVE METABOLIC PANEL 2021-05-[address] [facility] 15:00:00 [facility] MAGNESIUM 2021-05-[address] [facility] 15:00:00 [facility] PHOSPHORUS 2021-05-[address] [facility] 15:00:00 [facility] HIGH SENSITIVITY TROPONIN I 2021-05-[address] [facility] 15:00:00 [facility] XR CHEST 1 VIEW PORTABLE / BEDSIDE 2021-05-[address] [facility] 13:52:00 [facility] EKG-SCANNED 2021-05-15 Provider, Default [facility] 00:00:00 Scanning [facility] EGD (ENDO) 2019-04-22 [facility] 12[facility]55:59 Wil[facility] DAY SURGERY - ADC 2019-04-22 Doctor [facility] 05:01:00 Unassigned, No [facility] Plan of Care Planned Activity Planned Date Details Comments Source Future Scheduled 2022-10-[address] [facility] Test 00:00:00 Counseling and Screening [facility] (12+) [code = Tobacco Cessation Counseling and Screening (12+)] Future Scheduled 2022-04-19 INFLUENZA VACCINE (#1) C [...] 2021-12-07 ECHO, COMPLETE [code = Expected: [facility] Test 00:00:00 65291] 12/07/2021, of Medicine Expires: 04/11/2022 Future Scheduled 2021-10-12 ELECTROCARDIOGRAM [facility] Test 08:58:20 COMPLETE [code = 71310] of M edicine Future Scheduled 2021-10-12 TETANUS SHOT (ADULT) [facility] Test 08:34:44 [code = TETANUS SHOT of Medi cine (ADULT)] Future Scheduled 2021-10-12 BMI FOLLOW UP PLAN [code [facility] Test 08:34:44 = BMI FOLLOW UP PLAN] of Med icine Future Scheduled 2021-10-12 Hepatitis C screening [facility] Test 08:34:44 (procedure) [code = of Medic ine [id number]] Future Scheduled 2021-10-12 ZOSTER VACCINE (1 of 2) [facility] Test 08:34:44 [code = ZOSTER VACCINE of Me zelaya (1 of 2)] Future Scheduled 2021-10-12 FALL SCREEN [code = FALL [facility] Test 08:34:44 SCREEN] of Medicine Future Scheduled 2021-10-12 Pneumococcal 65+ (1 of 1 [facility] Test 08:34:44 - PPSV23) [code = of Medicin e Pneumococcal 65+ (1 of 1 - PPSV23)] Future Scheduled 2021-10-12 [facility] [code = FLU VACCINE > 6 of M edicine MONTHS] Future Scheduled 2021-10-12 MEDICARE IPPE [facility] 08:34[facility]44 TO [facility]ARE) [code = of [facility] MEDICARE IPPE (WELCOME TO MEDICARE)] Future Scheduled [...] Scheduled 2021-07-20 Pneumococcal 65+ (1 of 2 [facility] Test 15:04:42 - PPSV23) [code = of Medicin e Pneumococcal 65+ (1 of 2 - PPSV23)] Future Scheduled 2021-07-20 TETANUS SHOT (ADULT) [place] [facility] 15:04:42 [code = TETANUS SHOT of Medi cine (ADULT)] Future Scheduled 2021-07-20 BMI FOLLOW UP PLAN [code [facility] Test 15:04:42 = BMI FOLLOW UP PLAN] of Med icine Future Scheduled 2021-07-20 Hepatitis C screening [facility] 15:04:42 (procedure) [code = of Medic ine [id number]] Future Scheduled 2021-07-20 ZOSTER VACCINE (1 of 2) [facility] Test 15:04:42 [code = ZOSTER VACCINE of Me dicine (1 of 2)] Future Scheduled 2021-07-20 FALL SCREEN [code = FALL [facility] Test 15:04:42 SCREEN] of Medicine Future Scheduled 2021-07-20 MEDICARE IPPE (WELCOME [facility] Test 15:04:42 TO MEDICARE) [code = of Medi cine MEDICARE IPPE (WELCOME TO MEDICARE)] Future Scheduled 2021-07-20 FLU VACCINE > 6 MONTHS [facility] [employer] [facility] 15:04:42 [code = FLU VACCINE > 6 of M edicine MONTHS] Future Scheduled 2021-07-18 ELECTROCARDIOGRAM [facility] Test 15:05:03 COMPLETE [code = 44415] of M edicine Future Scheduled 2021-06-22 CBC W/AUTO DIFF WITH Ordered: [facility] Test 09:11:41 PLATELETS [code = 06/22/2021 of Medicin e 11672-6] Future Scheduled 2021-06-22 FERRITIN [code = Ordered: [facility] Test 09:11:41 98469-1] 06/22/2021 of Medicine Future Scheduled 2021-06-22 IRON+TIBC+%SAT [code = Ordered: [facility] 09:11:41 NOCPT] 06/22/2021 of Medicine Future Scheduled 2021-06-22 TETANUS SHOT (ADULT) [place] [facility] Test 08:19:01 [code = TETANUS SHOT of Medi cine (ADULT)] Future Scheduled 2021-06-22 Hepatitis C screening [facility] 08:19:01 (procedure) [code = of Medic ine [id number]] Future Scheduled 2021-06-22 ZOSTER VACCINE (1 of 2) [facility] Test 08:19:01 [code = ZOSTER VACCINE of Me dicine (1 of 2)] Future Scheduled 2021-06-22 FALL SCREEN [code = FALL [facility] Test 08:19:01 SCREEN] of Medicine Future Scheduled 2021-06-22 PNEUMOVAX >=65 (PPSV23) [facility] Test 08:19:01 [code = PNEUMOVAX >=65 of Me dicine (PPSV23)] Future Scheduled 2021-06-22 MEDICARE IPPE (WELCOME B [facility] Test 08:19:01 TO MEDICARE) [code = of Medi cine MEDICARE IPPE (WELCOME TO MEDICARE)] Future Scheduled 2021-06-22 FLU VACCINE > 6 MONTHS B [facility] Test 08:19:01 [code = FLU VACCINE [...] Clinicians Facility Department ID 2021-09-20 Outpatient 3 RUBYVICKY CRD [id number] [facility] 15:05:33 [facility] 2021-09-15 Outpatient 3 RUBYVICKY CRD [id number] [facility] 14:41:07 ALBA 0128 [facility] [place] [facility] 2021-09-14 Outpatient 3 [id number] ENCPL CRD [id number] [facility] 13:28:13 1209 [facility] [place] 2021-09-14 Outpatient 3 [id number] ENCPL REF [id number] [facility] 13:27:27 [facility] [place] 2021-09-14 Outpatient 3 [id number] ENCPL REF [id number] [facility] 13:27:13 [facility] [place] 2021-05-28 Inpatient ER ELLA, [facility] [id number] [facility] 12:00:47 TEDDYFlorecitaSTIVEN 2021-11-21 2021-11-21 Anesthesia David [facility] [id number] 23:59:59 23:59:59 Event [facility] 2021-11-21 2021-11-21 Anesthesia David [facility] [id number] 23:59:59 23:59:59 Event [facility] 2021-11-06 2021-11-06 Telephone Elle [facility] [id number] 00:00:00 00:00:00 [facility] 2021-11-06 2021-11-06 Telephone Elle [facility] [id number] 00:00:00 00:00:00 [facility] 2021-10-12 2021-10-12 Office GREG CHRISTIAN [id number] [facility] 08:21:22 11:05:40 Visit MAHBOOB AMBULATOR [id number] College Y [id number] Medi eddie 375 e 2021-10-04 2021-10-04 Office Mack, [facility] [id number] 09:00:00 09:30:00 Visit [facility] 2021-10-04 2021-10-04 Office Mack, [facility] [id number] 09:00:00 09:30:00 Visit [facility] 2021-10-04 2021-10-04 Outpatient MACK [facility] [id number] [facility] 08:41:28 08:41:28 [facility] 2021-08-31 2021-09-19 Inpatient ER FRACISCO ARNOLD Surgery [id number] [facility] 12:30:00 17:01:00 [facility] 2021-08-31 2021-09-19 [facility] [id number] [facility] 12:30:00 17:01:00 Encounter Michael Cristina [facility], Bartolo Padilla, [facility] 2021-08-31 2021-09-[address] [facility] [id number] [facility] 12:30:00 17:01:00 Encounter Michael Cristina [facility] alisson Arnold, [facility] 2021-09-07 2021-09-07 Anesthesia Rocky [facility] [id number] 07:58:00 15:09:00 Event Darrel Kelly [facility] 2021-09-07 2021-09-07 Anesthesia Rocky [facility] [id number] 07:58:00 15:09:00 Event Darrel Kelly [facility] 2021-09-07 2021-09-07 Surgery Ramya, [facility] [id number] 08:00:00 11:45:00 [facility] 2021-09-07 2021-09-07 Surgery Ramya [facility] [id number] 08:00:00 11:45:00 [facility] 2021-09-03 2021-09-03 Outpatient RABIANAVYA [id number] Navya 00:00:00 00:00:00 ELLIS grissom 2021-09-02 2021-09-02 Outpatient BCM [facility] [id number] [facility] 00:00:00 23:59:00 Colleg e [facility] Medicin e 2021-09-01 2021-09-01 Surgery [facility], [facility] [id number] 08:00:00 09:00:00 [facility] 2021-09-01 2021-09-01 Surgery [facility], [facility] [id number] 08:00:00 09:00:00 [facility] 2021-09-01 2021-09-01 [facility] [id number] 08:01[facility]00 08:36[facility] 2021-09-01 2021-09-01 Anesthesia Timmy Juan [facility] [id number] 08:01:00 08:36:00 Event [facility] 2021-08-31 2021-08-31 Outpatient BCM [facility] [id number] [facility] 12:30:00 23:59:00 [facility] Medicin e 2021-08-31 2021-08-31 Orders [facility] [id number] 00:00[facility]00 00[facility]00[facility]00 [facility] 2021-08-31 2021-08-31 Travel [facility] [id number] [facility] 00:[facility]:00 00:00:00 [facility] 2021-08-31 2021-08-31 Orders [facility] [id number] 00:00:00 00:00:00 Only [facility] 2021-08-31 2021-08-31 Travel [facility] [id number] [facility] 00:00:00 00:00:00 [facility] 2021-07-28 2021-08-04 Inpatient 3 RUBY, ENCPL CRD [id number] [facility] 12:00:00 11:50:00 ALBA [facility] [place] [facility] 2021-07-18 2021-07-18 Outpatient BCM BC [id number] [facility] 15:48:01 16:26:04 Colleg e of Medicin e 2021-07-18 2021-07-18 Office GREG CHRISTIAN [id number] [facility] 14:30:22 16:15:56 Visit MAHBOOB AMBULATOR [id number] College Y [id number] Medi eddie 375 e 2021-07-03 2021-07-04 Outpatient ER DARLENE SPARKS [facility] 20 [id number] [facility] 12:24:00 14:27:00 2021-07-03 2021-07-04 Emergency ER Tacos George Nicholas [facility] [id number] [facility] [address] 12:24:00 14:27:00 Darlene Sparks Bernarda Bird [facility] 2021-07-03 2021-07-03 [facility] [id number] [facility] 00:00:00 23:59:00 [facility] 2021-07-03 2021-07-03 Orders [facility] [id number] 00:00:00 00:00:00 Only [facility] 2021-07-03 2021-07-03 Travel [facility] [id number] [facility] 00:[facility] 00:00:00 [facility] 2021-06-22 2021-06-22 Office GREG SANCHEZ 1.2.840.114 [id number] [facility] 08:13:37 11:39:39 Visit RICK AMBULATOR 350.1.13.21 College Y 0.2.7.2.686 [id number] Medi eddie 325 e 2021-05-23 2021-05-26 Inpatient ER [facility]AMES [facility] Emergency 20 [id number] [facility] 15:12:00 15:03:00 NOA 2021-05-23 2021-05-26 Hospital ER Oneil Gottlieb [facility] [id number] 15:12:00 15:03:00 Encounter Noa Ramirez [facility] 2021-05-23 2021-05-23 Outpatient [facility] [id number] [facility] 00:00:00 23:59:00 Colleg rajesh of Medicin e 2021-05-23 2021-05-23 Travel [facility] [id number] [facility] 00:[facility]:00 00:00:00 [facility] 2021-05-20 2021-05-20 Emergency ER Tara, [facility] [id number] 06:07:00 06:08:00 [facility] 2021-05-20 2021-05-20 Emergency ER [facility] Emergency [id number] [facility] 01:57:00 01:57:00 2021-05-20 2021-05-20 Travel [facility] [id number] [facility] 00:[facility]:00 00:00:00 [facility] 2021-05-15 2021-05-17 Emergency ER Tara, [facility] [id number] [facility] 12:10:00 12:56:00 Bar Toledo, [facility] 2021-05-16 2021-05-16 Anesthesia Dillon Tenorio [facility] [id number] 11:24:00 12:17:00 Event Joyce Boss [facility] 2021-05-16 2021-05-16 Surgery Mansibeth, [facility] [id number] 11:00:00 12:00:[address] [facility] 2021-05-15 2021-05-15 Outpatient [facility] [id number] [facility] 00:00:00 23:59:00 [facility] 2021-05-15 2021-05-15 Emergency ER [facility] Emergency [id number] [facility] 12:00:00 12:00:00 2021-05-15 2021-05-15 Travel [facility] [id number] [facility] 00:00:00 00:00:00 [facility] 2021-04-29 2021-04-29 Outpatient [facility] [id number] [facility] 00:00:00 23:59:00 [facility] 2021-04-28 2021-04-28 Outpatient [facility] [id number] [facility] 12:32:00 23:59:00 [facility] 2019-04-22 2019-04-22 [facility] 1.2.840.114 [id number] [facility] 06:15:00 08:56:00 Encounter Katy mena 350.1.13.10 [place] 4[place] [id number] [address] 2019-04-22 2019-04-22 [facility] 1.2.840.114 [id number] 06:15:00 08:56:00 Encounter Katy mena 350.1.13.10 [place] 4.2.7.2.686 Surgical [id number] [place] [address] 2019-04-22 2019-04-22 Anesthesia [place] [id number] [facility] 07:54:00 08:13:00 Jaden Loyola 350.1.13.10 [place] [id number] [facility] [address] 2019-04-22 2019-04-22 Anesthesia [facility] 1.2.840.114 [id number] 07:54:00 08:13:00 Jaden Loyola 350.1.13.10 [place] 4.2.7.2.686 Surgical [id number] [place] 020 2019-04-22 2019-04-22 Orders Doctor LIDIA 1.2.840.114 [id number] [facility] 00:00:00 00:00:00 Only Unassigned, ANA MARIA 350.1.13.10 ity of [place] [facility] 4.2.7.2.686 Tomas as [id number] [facility] [address] 2019-04-22 2019-04-22 Orders Doctor LIDIA 1.2.840.114 [id number] 00:00:00 00:00:00 Only Unassigned, ANA MARIA 350.1.13.10 [place] [facility] 4.2.7.2.686 [id number] 009 Results Test Description Test Time Test [...] NOT 1092) ACCURATE CRE ATININE CLEARANCE IN [place] EDICTING GLOMERULAR FILT RATION RATE. ESTIMATED GFR IS NOT APPLICABLE FOR DIALYSIS PATIENTS. Systems Testing Laboratory Technician ID - KEARA BELLperator ID - PIAYA [id number] 04:56:54 Test Item Value Reference Range Interpretation Comments PHOSPHORUS (BEAKER) (test code = 4.1 mg/dL 2.3-4.7 604) Systems Testing Laboratory Technician ID - KEARA [id number] 04:56:53 Test Item Value Reference Range Interpretation Comments MAGNESIUM (BEAKER) (test code = 2.1 mg/dL 1.6-2.6 627) Systems Testing Laboratory Technician ID - KEARA WCALCIUM, [id number] 04:30:35 Test Item Value Reference Range Interpretation Comments CALCIUM IONIZED (BEAKER) (test 1.13 mmol/L 1.12-1.27 code = 698) PH, BLOOD (BEAKER) (test code = 7.47 1810) PROTHROMBIN TIME/[id number] 04:04:47 Test Item Value Reference Range Interpretation Comments PROTIME (BEAKER) 27.1 seconds 11.9-14.2 H (test code = 759) INR (BEAKER) (test 2.54 See_Comment [Automat ed message] code = 370) The system Cartasite generated this result transmitted ref erence range: <=5.90. The reference range was not used to int erpret this result as normal/abnormal . RECOMMENDED COUMADIN/WARFARIN INR THERAPY RANGESSTANDARD DOSE: 2.0 - 3.0 Includes: PROPHYLAXIS for venous thrombosis, systemic embolization; TREATMENT for venous thrombosis and/or pulmonary embolus.HIGH RISK: Target INR is 2.5-3.5 for patients with mechanical heart valves.CBC W/PLT COUNT & AUTO [id number] 03:57:43 Test Item Value Reference Range Interpretation [...] (BEAKER) (test code = 2801) COMPREHENSIVE METABOLIC [id number] 11:28:15 Test Item Value Reference Range Interpretation [...] S NOT APPLICABLE FOR DIALYSIS PATIEN TS. Systems Testing Laboratory Technician ID - PIAYA LRAD, CHEST, 1 VIEW, NON [id number] 07:44:00Reason for exam:->S/p Ct SurgeryShould this be performed at the bedside?->Yes [facility] : 1945 [...] Cordero Verified Date/Time: 09/18/2021 07:44:52 Reading Location: [facility] [place] [facility] Reading Room PROTHROMBIN TIME/[id number] 04:28:26 Test Item Value Reference Range Interpretation Comments PROTIME (BEAKER) 24.0 seconds 11.9-14.2 H (test code = 759) INR (BEAKER) (test 2.18 See_Comment [Automat ed message] code = 370) The system Cartasite generated this result transmitted ref erence range: <=5.90. The reference range was not used to int erpret this result as normal/abnormal . RECOMMENDED COUMADIN/WARFARIN INR THERAPY RANGESSTANDARD DOSE: 2.0 - 3.0 Includes: PROPHYLAXIS for venous thrombosis, systemic embolization; TREATMENT for venous thrombosis and/or pulmonary embolus.HIGH RISK: Target INR is 2.5-3.5 for patients with mechanical heart valves.[id number] 04:17:02 Test Item Value Reference Range Interpretation Comments MAGNESIUM (BEAKER) (test code = 2.0 mg/dL 1.6-2.6 627) Systems Testing Laboratory Technician ID - [id number] 04:17:02 Test Item Value Reference Range Interpretation Comments PHOSPHORUS (BEAKER) (test code = 3.6 mg/dL 2.3-4.7 604) Systems Testing Laboratory Technician ID - DBBASIC METABOLIC [id number] 04:17:01 Test Item Value Reference Range Interpretation [...] S NOT APPLICABLE FOR DIALYSIS PATIEN TS. Systems Testing Laboratory Technician ID - DBCALCIUM, [id number] 03:53:15 Test Item Value Reference Range Interpretation Comments CALCIUM IONIZED (BEAKER) (test 1.13 mmol/L 1.12-1.27 code = 698) PH, BLOOD (BEAKER) (test code = 7.47 1810) CBC W/PLT COUNT & AUTO [id number] 03:52:23 Test Item Value Reference Range Interpretation [...] PERCENT (BEAKER) (test code = 2801) POC-Glucose [id number] 17:37:37 Test Item Value Reference Range Interpretation Comments POC-Glucose Meter (test 160 mg/dL 70-110 H : TE STED AT [facility] code = 1538) [address] [place] [address], 770 30: Systems Testing Laboratory Technician/Techni bart ID = [id number] for Rowe, Mariss a Lab Interpretation (test Abnormal code = 99387-5) [facility]-Glucose [id number] 17:37:37 Test Item Value Reference Range Interpretation Comments POC-Glucose Meter (test 160 mg/dL 70-110 H : TE STED AT [facility] code = 1538) [address] [place] [address], 770 30: Systems Testing Laboratory Technician/Techni bart ID = [id number] for Rowe, Mariss a Lab Interpretation (test Abnormal code = 36205-8) [facility]-Glucose [id number] 17:37:37 Test Item Value Reference Range Interpretation Comments POC-Glucose Meter (test 160 mg/dL 70-110 H : TE STED AT [facility] code = 1538) [address] [place] [address], 770 30: Systems Testing Laboratory Technician/Techni bart ID = [id number] for Rowe, Mariss a Lab Interpretation (test Abnormal code = 67345-9) [facility]-GLUCOSE [id number] 17:37:37 Test Item Value Reference Range Interpretation Comments POC-GLUCOSE METER 160 mg/dL 70-110 H : TESTED A T [facility] 6720 (BEAKER) (test code = [facility], 1538) 74864: Systems Testing Laboratory Technician/Techni bart ID = [id number] for Sammie Mercado POCT-GLUCOSE [id number] 12:40:04 Test Item Value Reference Range Interpretation Comments POC-GLUCOSE METER 126 mg/dL 70-110 H : TESTED A T [facility] 6720 (BEAKER) (test code = [facility], 1538) 06720: Systems Testing Laboratory Technician/Techni bart ID = [id number] for Sammie Mercado [id number] 08:29:45 Test Item Value Reference Range Interpretation Comments PHOSPHORUS (BEAKER) (test code = 4.0 mg/dL 2.3-4.7 604) Systems Testing Laboratory Technician ID - [id number] 08:29:44 Test Item Value Reference Range Interpretation Comments MAGNESIUM (BEAKER) (test code = 2.1 mg/dL 1.6-2.6 627) Systems Testing Laboratory Technician ID - DBPOCT-GLUCOSE [id number] 08:09:33 Test Item Value Reference Range Interpretation Comments POC-GLUCOSE METER 91 mg/dL 70-110 : TESTED A T [facility] 6720 (BEAKER) (test code = [facility], 1538) 84724: Systems Testing Laboratory Technician/Techni bart ID = [id number] for Sammie Lawson CBC W/PLT COUNT & AUTO [id number] 06:42:04 Test Item Value Reference Range Interpretation [...] PERCENT (BEAKER) (test code = 2801) PROTHROMBIN TIME/[id number] 06:23:57 Test Item Value Reference Range Interpretation Comments PROTIME (BEAKER) 23.1 seconds 11.9-14.2 H (test code = 759) INR (BEAKER) (test 2.08 See_Comment [Automat ed message] code = 370) The system Cartasite generated this result transmitted ref erence range: <=5.90. The reference range was not used to int erpret this result as normal/abnormal . RECOMMENDED COUMADIN/WARFARIN INR THERAPY RANGESSTANDARD DOSE: 2.0 - 3.0 Includes: PROPHYLAXIS for venous thrombosis, systemic embolization; TREATMENT for venous thrombosis and/or pulmonary embolus.HIGH RISK: Target INR is 2.5-3.5 for patients with mechanical heart valves.CALCIUM, [id number] 05:53:20 Test Item Value Reference Range Interpretation Comments CALCIUM IONIZED (BEAKER) (test 1.13 mmol/L 1.12-1.27 code = 698) PH, BLOOD (BEAKER) (test code = 7.48 1810) RAD, CHEST, 1 VIEW, NON [id number] 05:22:00Reason for exam:->S/p Ct SurgeryShould this be performed at the bedside?->Yes [facility] 1945 Sex: MFINAL REPORT RAD, CHEST, 1 VIEW, NON DEPT INDICATION: S/p Ct Surgery COMPARISON:Prior day's exam FINDINGS: Portable frontal view of the chest. IMPRESSION: Support Lines: None Lungsand pleura: Unchanged scattered bilateral parenchymal opacities. No new consolidation. No pneumothorax. Heart and mediastinum: Stable contours. Additional findings: None. Signed: Halley Osullivan Verified Date/Time: 09/17/2021 05:22:46 POCT-GLUCOSE [id number] 21:59:07 Test Item Value Reference Range Interpretation Comments POC-GLUCOSE METER 118 mg/dL 70-110 H : TESTED A T [facility] 6720 (BEAKER) (test code = [facility] [place], 1538) 97[address]: Systems Testing Laboratory Technician/Techni bart ID = [id number] for Co Pam diop [id number] 17:58:41 Test Item Value Reference Range Interpretation Comments MAGNESIUM (BEAKER) (test code = 2.0 mg/dL 1.6-2.6 627) Systems Testing Laboratory Technician ID - KEARA WPOCT-GLUCOSE [id number] 17:29:30 Test Item Value Reference Range Interpretation Comments POC-GLUCOSE METER 123 mg/dL 70-110 H : TESTED A T [facility] 6720 (BEAKER) (test code = [facility], 1538) 48533: Systems Testing Laboratory Technician/Techni bart ID = [id number] for Ba Michelle jamesssa POCT-GLUCOSE [id number] 12:52:33 Test Item Value Reference Range Interpretation Comments POC-GLUCOSE METER 122 mg/dL 70-110 H : TESTED A T [facility] 6720 (BEAKER) (test code = [facility], 1538) 41089: Systems Testing Laboratory Technician/Techni bart ID = [id number] for Ba rrera, Sammie BASIC METABOLIC [id number] 08:28:13 Test Item Value Reference Range Interpretation [...] S NOT APPLICABLE FOR DIALYSIS PATIEN TS. Systems Testing Laboratory Technician ID - KEARA WPOCT-GLUCOSE [id number] 07:58:49 Test Item Value Reference Range Interpretation Comments POC-GLUCOSE METER 82 mg/dL 70-110 : TESTED A T [facility] 6720 (BEAKER) (test code = [facility] [place], 1538) 59412: Systems Testing Laboratory Technician/Techni bart ID = [id number] for Sammie Lawson RAD, CHEST, 1 VIEW, NON [id number] 07:01:00Reason for exam:->S/p Ct SurgeryShould this be performed at the bedside?->Yes [facility] CENTER[facility] : 1945 [...] (test code = 4.4 mg/dL 2.3-4.7 604) Systems Testing Laboratory Technician ID - KEARA [id number] 05:10:06 Test Item Value Reference Range Interpretation Comments MAGNESIUM (BEAKER) (test code = 2.0 mg/dL 1.6-2.6 627) Systems Testing Laboratory Technician ID - KEARA [id number] 04:45:18 Test Item Value Reference Range Interpretation Comments PTT (test code = 46.4 See_Comment H [Automated message] 42573-6) The system Cartasite generated this result transmitted ref erence range: 22.5 - 3 6.0 seconds. The reference range was not used to int erpret this result as normal/abnormal . Lab Interpretation (test Abnormal code = 62787-6) [facility] 04:45[facility]18 Test Item Value Reference Range Interpretation Comments PTT (test code = 46.4 See_Comment H [Automated message] 76548-4) The system Cartasite generated this result transmitted ref erence range: 22.5 - 3 6.0 seconds. The reference range was not used to int erpret this result as normal/abnormal . Lab Interpretation (test Abnormal code = 80564-6) [facility] 04:45[facility]18 Test Item Value Reference Range Interpretation Comments PTT (test code = 46.4 See_Comment H [Automated message] 07802-4) The system Cartasite generated this result transmitted ref erence range: 22.5 - 3 6.0 seconds. The reference range was not used to int erpret this result as normal/abnormal . Lab Interpretation (test Abnormal code = 53765-2) [facility] 04:45:18 Test Item Value Reference Range Interpretation Comments PARTIAL THROMBOPLASTIN TIME 46.4 seconds 22.5-36.0 H (BEAKER) (test code = 760) PROTHROMBIN TIME/[id number] 04:44:13 Test Item Value Reference Range Interpretation Comments PROTIME (BEAKER) 18.3 seconds 11.9-14.2 H (test code = 759) INR (BEAKER) (test 1.54 See_Comment [Automat ed message] code = 370) The system Cartasite generated this result transmitted ref erence range: <=5.90. The reference range was not used to int erpret this result as normal/abnormal . RECOMMENDED COUMADIN/WARFARIN INR THERAPY RANGESSTANDARD DOSE: 2.0 - 3.0 Includes: PROPHYLAXIS for venous thrombosis, systemic embolization; TREATMENT for venous thrombosis and/or pulmonary embolus.HIGH RISK: Target INR is 2.5-3.5 for patients with mechanical heart valves.CALCIUM, [id number] 04:42:58 Test Item Value Reference Range Interpretation Comments CALCIUM IONIZED (BEAKER) (test 1.12 mmol/L 1.12-1.27 code = 698) PH, BLOOD (BEAKER) (test code = 7.47 1810) CBC W/PLT COUNT & AUTO [id number] 04:35:30 Test Item Value Reference Range Interpretation [...] PERCENT (BEAKER) (test code = 2801) POCT-GLUCOSE [id number] 20:58:14 Test Item Value Reference Range Interpretation Comments POC-GLUCOSE METER 104 mg/dL 70-110 : TESTED A T [facility] 6720 (BEAKER) (test code = [facility], 153) 80215: Systems Testing Laboratory Technician/Techni bart ID = [id number] for Co rtez, Pam POCT-GLUCOSE [id number] 17:20:16 Test Item Value Reference Range Interpretation Comments POC-GLUCOSE METER 93 mg/dL 70-110 : TESTED A T [facility] 6720 (BEAKER) (test code = [facility], 1538) 04135: Systems Testing Laboratory Technician/Techni bart ID = [id number] for VÍCTOR MURILLO POCT-GLUCOSE [id number] 12:15:47 Test Item Value Reference Range Interpretation Comments POC-GLUCOSE METER 122 mg/dL 70-110 H : TESTED A T [facility] 6720 (BEAKER) (test code = [facility], 1538) 12256: Systems Testing Laboratory Technician/Techni bart ID = [id number] for VÍCTOR GRIMALDO POCT-GLUCOSE [id number] 07:26:33 Test Item Value Reference Range Interpretation Comments POC-GLUCOSE METER 95 mg/dL 70-110 : TESTED A T [facility] 6720 (BEAKER) (test code = [facility], 153) 43694: Systems Testing Laboratory Technician/Techni bart ID = [id number] for VÍCTOR MURILLO RAD, CHEST, 1 VIEW, NON [id number] 07:09:00while patient is intubated or has chest tubes.Reason for exam:->Status post CV SurgeryShould thisbe performed at the bedside?->Yes [facility] CENTERName: CADEN GIL[facility] : 1945 [...] MDReport Verified Date/Time: 09/15/2021 07:09:45 Reading Location: [facility] Radiology Reading Room Hepatic function [id number] 04:57:12 Test Item Value Reference Range Interpretation Comments Protein, Total (test 5.4 See_Comment L [Autom ated code = 2885-2) message] The system which generated this result transmit dante reference range : 6.0 - 8.3 gm/dL . The reference range was not u sed to interpret th is result as normal/abnormal . Albumin (test code = 2.9 g/dL 3.5-5.0 L 17013-7) Total Bilirubin (test 1.1 mg/dL 0.2-1.2 code = 1974-2) Bilirubin, Direct 0.6 mg/dL 0.1-0.5 H (test code = 1967-7) Alkaline Phosphatase 170 U/L 40-150 H (test code = 6768-6) AST (test code = 26 U/L 5-34 0-8) ALT (test code = 43 U/L 6-55 1742-6) EMERSON (test code = EMERSON) Systems Testing Laboratory Technician ID - PIAYA L Lab Interpretation Abnormal (test code = 74886-7) [facility] [id number] 04:57:12 Test Item Value Reference Range Interpretation Comments Protein, Total (test 5.4 See_Comment L [Autom ated code = 2885-2) message] The system which generated this result transmit dante reference range : 6.0 - 8.3 gm/dL . The reference range was not u sed to interpret th is result as normal/abnormal . Albumin (test code = 2.9 g/dL 3.5-5.0 L 74149-8) Total Bilirubin (test 1.1 mg/dL 0.2-1.2 code = 1974-) Bilirubin, Direct 0.6 mg/dL 0.1-0.5 H (test code = 1967-) Alkaline Phosphatase 170 U/L 40-150 H (test code = 6768-6) AST (test code = 26 U/L 1919-8) ALT (test code = 43 U/L 1742-6) EMERSON (test code = EMERSON) Systems Testing Laboratory Technician ID - PIAYA L Lab Interpretation Abnormal (test code = 27825-1) [facility] [id number] 04:57:12 Test Item Value Reference Range Interpretation Comments Protein, Total (test 5.4 See_Comment L [Autom ated code = 2885-2) message] The system which generated this result transmit dante reference range : 6.0 - 8.3 gm/dL . The reference range was not u sed to interpret th is result as normal/abnormal . Albumin (test code = 2.9 g/dL 3.5-5.0 L 69708-1) Total Bilirubin (test 1.1 mg/dL 0.2-1.2 code = 1974-) Bilirubin, Direct 0.6 mg/dL 0.1-0.5 H (test code = 1967-) Alkaline Phosphatase 170 U/L 40-150 H (test code = 6768-6) AST (test code = 26 U/L 34 1920-8) ALT (test code = 43 U/L 1742-6) EMERSON (test code = EMERSON) Systems Testing Laboratory Technician ID - PIAYA L Lab Interpretation Abnormal (test code = 44196-3) [facility] [id number] 04:57:12 Test Item Value Reference Range Interpretation [...] (test code = 43 U/L 6-55 347) Systems Testing Laboratory Technician ID - KAYLEEN [id number] 04:57:11 Test Item Value Reference Range Interpretation Comments MAGNESIUM (BEAKER) (test code = 2.0 mg/dL 1.6-2.6 627) Systems Testing Laboratory Technician ID - KAYLEEN [id number] 04:57:11 Test Item Value Reference Range Interpretation Comments PHOSPHORUS (BEAKER) (test code = 3.8 mg/dL 2.3-4.7 604) Systems Testing Laboratory Technician ID - KAYLEEN LBASIC METABOLIC [id number] 04:57:10 Test Item Value Reference Range Interpretation [...] I S NOT APPLICABLE FOR DIALYSIS PATIEN Systems Testing Laboratory Technician ID - PIAYA [id number] 04:49:45 Test Item Value Reference Range Interpretation Comments PARTIAL THROMBOPLASTIN TIME 44.9 seconds 22.5-36.0 H (BEAKER) (test code = 760) PROTHROMBIN TIME/[id number] 04:48:43 Test Item Value Reference Range Interpretation Comments PROTIME (BEAKER) 16.0 seconds 11.9-14.2 H (test code = 759) INR (BEAKER) (test 1.30 See_Comment [Automat ed message] code = 370) The system Cartasite generated this result transmitted ref erence range: <=5.90. The reference range was not used to int erpret this result as normal/abnormal . RECOMMENDED COUMADIN/WARFARIN INR THERAPY RANGESSTANDARD DOSE: 2.0 - 3.0 Includes: PROPHYLAXIS for venous thrombosis, systemic embolization; TREATMENT for venous thrombosis and/or pulmonary embolus.HIGH RISK: Target INR is 2.5-3.5 for patients with mechanical heart valves.CBC W/PLT COUNT & AUTO [id number] 04:46:45 Test Item Value Reference Range Interpretation [...] PERCENT (BEAKER) (test code = 2801) CALCIUM, [id number] 04:42:09 Test Item Value Reference Range Interpretation Comments CALCIUM IONIZED (BEAKER) (test 1.11 mmol/L 1.12-1.27 L code = 698) PH, BLOOD (BEAKER) (test code = 7.48 1810) Prepare Leuko-Red [id number] 23:55:00 Test Item Value Reference Range Interpretation Comments CROSSMATCH (test code = 2264) COMPATIBLE Unit ABO (test code = A Pos 3227386) UNIT NUMBER (test code = [id number] 934-0) Status (test code = 1341785) TX_TIMEINCHART Blood Bank Product (test code RED BLOOD CELLS = 2263) PRODUCT CODE (test code = [id number] 933-2) [facility] Leuko-Red [id number] 23:55:00 Test Item Value Reference Range Interpretation Comments CROSSMATCH (test code = 2264) COMPATIBLE Unit ABO (test code = A Pos 5817459) UNIT NUMBER (test code = [id number] 934-0) Status (test code = 7432014) [facility] Blood Bank Product (test code RED BLOOD CELLS = 2263) PRODUCT CODE (test code = [id number] 933-2) [facility] [id number] 23:55:00 Test Item Value Reference Range Interpretation Comments CROSSMATCH (test code = 2264) COMPATIBLE Unit ABO (test code = A Pos 6087389) UNIT NUMBER (test code = [id number] 934-0) Status (test code = 2723952) [facility] Product (test code RED BLOOD CELLS = 2263) PRODUCT CODE (test code = Q3789W54 933-2) [facility]2022-01-27 21:30:13 Test Item Value Reference Range Interpretation Comments MAGNESIUM (BEAKER) (test code = 2.0 mg/dL 1.6-2.6 627) Systems Testing Laboratory Technician ID - PIAYA LPOCT-GLUCOSE [id number] 21:14:24 Test Item Value Reference Range Interpretation Comments POC-GLUCOSE METER 118 mg/dL 70-110 H : TESTED A T [facility] 6720 (BEAKER) (test code = [facility] [place], 1538) 82731: Systems Testing Laboratory Technician/Techni bart ID = [id number] for MORELIA WEBB BASIC METABOLIC [id number] 09:32:00 Test Item Value Reference Range Interpretation [...] S NOT APPLICABLE FOR DIALYSIS PATIEN TS. Systems Testing Laboratory Technician ID - PIAYA LCBC W/PLT COUNT & AUTO [id number] 09:06:06 Test Item Value Reference Range Interpretation [...] 2D Echo W/Doppler(CW/PW/Color)2021-09-14 08:48:39Ejection FractionSLEH ECHO HEARTLAB [facility]2D Echo W/Doppler(CW/PW/Color)2021-09-14 08:48:39Ejection FractionSLEH ECHO HEARTLAB [facility]2D Echo W/Doppler(CW/PW/Color) 2021-09-14 08:48:39Ejection [facility]LE [facility] [id number] 07:35:25 Test Item Value Reference Range Interpretation Comments POC-GLUCOSE METER 91 mg/dL 70-110 : TESTED A T [facility] 6720 (BEAKER) (test code = [place], 1538) [id number]: Systems Testing Laboratory Technician/Techni bart ID = [id number] for CINDI DAVALOS BASIC METABOLIC [id number] 06:05:56 Test Item Value Reference Range Interpretation [...] S NOT APPLICABLE FOR DIALYSIS PATIEN TS. Systems Testing Laboratory Technician ID - PIMARIELA LHEPATIC FUNCTION [id number] 06:05:56 Test Item Value Reference Range Interpretation [...] Specimen moderately (test code = 347) hemolyzed Systems Testing Laboratory Technician ID - KAYLEEN [id number] 06:05:55 Test Item Value Reference Range Interpretation Comments MAGNESIUM (BEAKER) 2.3 mg/dL 1.6-2.6 Specimen moderately (test code = 627) hemolyzed Systems Testing Laboratory Technician ID - KAYLEEN [id number] 06:05:55 Test Item Value Reference Range Interpretation Comments PHOSPHORUS (BEAKER) 3.8 mg/dL 2.3-4.7 Specimen moderately (test code = 604) hemolyzed Systems Testing Laboratory Technician ID - PIMARIELA [id number] 05:42:58 Test Item Value Reference Range Interpretation Comments PARTIAL THROMBOPLASTIN TIME 39.1 seconds 22.5-36.0 H (BEAKER) (test code = 760) PROTHROMBIN [id number] 05:42:16 Test Item Value Reference Range Interpretation Comments PROTIME (BEAKER) 14.8 seconds 11.9-14.2 H (test code = 759) INR (BEAKER) (test 1.18 See_Comment [Automat ed message] code = 370) The system [employer] generated this result transmitted ref erence range: <=5.90. The reference range was not used to int erpret this result as normal/abnormal . RECOMMENDED COUMADIN/WARFARIN INR THERAPY RANGESSTANDARD DOSE: 2.0 - 3.0 Includes: PROPHYLAXIS for venous thrombosis, systemic embolization; TREATMENT for venous thrombosis and/or pulmonary embolus.HIGH RISK: Target INR is 2.5-3.5 for patients with mechanical heart valves.CALCIUM, [id number] 05:36:36 Test Item Value Reference Range Interpretation Comments CALCIUM IONIZED (BEAKER) (test 1.07 mmol/L 1.12-1.27 L code = 698) PH, BLOOD (BEAKER) (test code = 7.42 1810) RAD, CHEST, 1 VIEW, NON [id number] 02:39:00while patient is intubated or has chest tubes.Reason for exam:->Status post CV SurgeryShould thisbe performed at the bedside?->Yes [facility] 1945 Sex: MFINAL [...] Osullivan MDReport Verified Date/Time: 09/14/2021 02:39:11 POCT-GLUCOSE [id number] 22:16:46 Test Item Value Reference Range Interpretation Comments POC-GLUCOSE METER 116 mg/dL 70-110 H : TESTED A T [facility] 6720 (BEAKER) (test code = [place], 1538) [address]: Systems Testing Laboratory Technician/Techni bart ID = [id number] for VISHAL GAINES BASIC METABOLIC [id number] 17:49:41 Test Item Value Reference Range Interpretation [...] S NOT APPLICABLE FOR DIALYSIS PATIEN TS. Systems Testing Laboratory Technician ID - JACQUELINE [id number] 17:49:41 Test Item Value Reference Range Interpretation Comments MAGNESIUM (BEAKER) (test code = 2.2 mg/dL 1.6-2.6 627) Systems Testing Laboratory Technician ID - JACQUELINE CPOCT-GLUCOSE [id number] 17:28:04 Test Item Value Reference Range Interpretation Comments POC-GLUCOSE METER 153 mg/dL 70-110 H : TESTED A T [facility] 6720 (BEAKER) (test code MARILYN [facility], = 1538) [id number]: Systems Testing Laboratory Technician/Techni bart ID = [id number] for RitchieSilvana minor POCT-GLUCOSE [id number] 11:25:51 Test Item Value Reference Range Interpretation Comments POC-GLUCOSE METER 122 mg/dL 70-110 H : TESTED A T [facility] 6720 (BEAKER) (test code = DOMINIQUE [facility], 1538) [address]: Systems Testing Laboratory Technician/Techni bart ID = [id number] for PH INABDOULAYE WILDER [id number] 11:03:29 Test Item Value Reference Range Interpretation Comments MAGNESIUM (BEAKER) (test code = 2.0 mg/dL 1.6-2.6 627) Systems Testing Laboratory Technician ID - AUG CBASIC METABOLIC [id number] 11:03:28 Test Item Value Reference Range Interpretation [...] S NOT APPLICABLE FOR DIALYSIS PATIEN TS. Systems Testing Laboratory Technician ID - AUG CVenous doppler arm, [id number] 10:17:08Ejection FractionSLEH ECHO HEARTLAB [facility], [id number] 10:17:08Ejection FractionSLEH ECHO HEARTLAB MKCKESSON [facility]byterian[facility] arm, [id number] 10:17:08Ejection FractionSLEH ECHO HEARTLAB [facility]byterian[facility] and screen, [id number] 09:38:00 Test Item Value Reference Range Interpretation Comments ABO/RH AUTOMATED (BEAKER) (test A POSITIVE code = 2260) Ab Scrn (test code = 890-4) NEGATIVE [facility] screen, [id number] 09:38:00 Test Item Value Reference Range Interpretation Comments ABO/RH AUTOMATED (BEAKER) (test A POSITIVE code = 2260) Ab Scrn (test code = 890-4) NEGATIVE [facility] HospitalType [facility] screen, [id number] 09:38:00 Test Item Value Reference Range Interpretation Comments ABO/RH AUTOMATED (BEAKER) (test A POSITIVE code = 2260) Ab Scrn (test code = 890-4) NEGATIVE [facility] HospitalRAD, CHEST, 1 VIEW, NON [id number] 08:40:00while patient is intubated or has chest tubes.Reason for exam:->Status post CV SurgeryShould thisbe performed at the bedside?->Yes [facility] BARRYSILVER SWANSONSanto BACH : 1945 Sex: MFINAL REPORT CLINICAL HISTORY: [...] MDReport Verified Date/Time: 09/13/2021 08:40:29 Reading Location: [facility] Reading Room POCT-GLUCOSE [id number] 08:01:34 Test Item Value Reference Range Interpretation Comments POC-GLUCOSE METER 89 mg/dL 70-110 : Notified RN/MD: TESTED (BEAKER) (test code = AT [facility] 67[address] [facility] 1538) [facility], [facility] 30: Systems Testing Laboratory Technician/Techni bart ID = [id number] for ABDOULAYE KATZ PROTHROMBIN TIME/[id number] 04:58:25 Test Item Value Reference Range Interpretation Comments PROTIME (BEAKER) 15.6 seconds 11.9-14.2 H (test code = 759) INR (BEAKER) (test 1.26 See_Comment [Automat ed message] code = 370) The system [employer] generated this result transmitted ref erence range: <=5.90. The reference range was not used to int erpret this result as normal/abnormal . RECOMMENDED COUMADIN/WARFARIN INR THERAPY RANGESSTANDARD DOSE: 2.0 - 3.0 Includes: PROPHYLAXIS for venous thrombosis, systemic embolization; TREATMENT for venous thrombosis and/or pulmonary embolus.HIGH RISK: Target INR is 2.5-3.5 for patients with mechanical heart valves.CBC W/PLT COUNT & AUTO [id number] 03:26:57 Test Item Value Reference Range Interpretation [...] (BEAKER) (test code = 2801) BASIC METABOLIC [id number] 02:43:59 Test Item Value Reference Range Interpretation [...] is on LVAD, which may hemolyze the blood.Systems Testing Laboratory Technician ID - KAYLEEN LHEPATIC FUNCTION [id number] 02:43:59 Test Item Value Reference Range Interpretation [...] Specimen moderately (test code = 347) hemolyzed Systems Testing Laboratory Technician ID - KAYLEEN [id number] 02:43:58 Test Item Value Reference Range Interpretation Comments PHOSPHORUS (BEAKER) 3.1 mg/dL 2.3-4.7 Specimen moderately (test code = 604) hemolyzed Systems Testing Laboratory Technician ID - KAYLEEN [id number] 02:43:57 Test Item Value Reference Range Interpretation Comments MAGNESIUM (BEAKER) 2.0 mg/dL 1.6-2.6 Specimen moderately (test code = 627) hemolyzed Systems Testing Laboratory Technician ID - KAYLEEN Westbrooktor ID - KAYLEEN [id number] 02:41:16 Test Item Value Reference Range Interpretation Comments PARTIAL THROMBOPLASTIN TIME 44.3 seconds 22.5-36.0 H (BEAKER) (test code = 760) CALCIUM, [id number] 02:05:55 Test Item Value Reference Range Interpretation Comments CALCIUM IONIZED (BEAKER) (test 1.10 mmol/L 1.12-1.27 L code = 698) PH, BLOOD (BEAKER) (test code = 7.43 1810) Blood gas, [id number] 02:04:48 Test Item Value Reference Range Interpretation Comments pH, Declan (test code = 7.43 7.32-7.42 H 2746-6) pCO2, Declan (test code = 38 See_Comment L [Aut omated message] 755) The system [employer] generated this result transmit dante reference range : 41 - 51 mm Hg. The reference range was not used to interpret this result as normal/abnormal . pO2, Declan (test code = 40 See_Comment [Auto mated message] 5395-2) The system [employer] generated this result transmit dante reference range : 25 - 40 mm Hg. The reference range was not used to interpret this result as normal/abnormal . O2 Sat, Declan (test code 76.6 % 40.0-70.0 H = 2711-0) HCO3, Declan (test code = 25 mmol/L 21-29 07615-6) Base Excess, Declan (test 0.9 mmol/L -2.0-3.0 code = 1927-3) Patient Temperature 37.0 (test code = 8310-5) FIO2 (test code = 1819) 21 Lab Interpretation Abnormal (test code = 17015-7) [facility] HospitalBlood [facility], [id number] 02:04:48 Test Item Value Reference Range Interpretation Comments pH, Declan (test code = 7.43 7.32-7.42 H 2746-6) pCO2, Declan (test code = 38 See_Comment L [Aut omated message] 755) The system [employer] generated this result transmit dante reference range : 41 - 51 mm Hg. The reference range was not used to interpret this result as normal/abnormal . pO2, Declan (test code = 40 See_Comment [Auto mated message] 2705-2) The system [employer] generated this result transmit dante reference range : 25 - 40 mm Hg. The reference range was not used to interpret this result as normal/abnormal . O2 Sat, Declan (test code 76.6 % 40.0-70.0 H = 2711-0) HCO3, Declan (test code = 25 mmol/L 21-29 46496-4) Base Excess, Declan (test 0.9 mmol/L -2.0-3.0 code = 1927-3) Patient Temperature 37.0 (test code = 8310-5) FIO2 (test code = 1819) 21 Lab Interpretation Abnormal (test code = 79754-0) [facility] gas, [id number] 02:04:48 Test Item Value Reference Range Interpretation Comments pH, Declan (test code = 7.43 7.32-7.42 H 2746-6) pCO2, Declan (test code = 38 See_Comment L [Aut omated message] 755) The system [employer] generated this result transmit dante reference range : 41 - 51 mm Hg. The reference range was not used to interpret this result as normal/abnormal . pO2, Declan (test code = 40 See_Comment [Auto mated message] 2705-2) The system [employer] generated this result transmit dante reference range : 25 - 40 mm Hg. The reference range was not used to interpret this result as normal/abnormal . O2 Sat, Declan (test code 76.6 % 40.0-70.0 H = 2711-0) HCO3, Declan (test code = 25 mmol/L 21-29 14716-5) Base Excess, Declan (test 0.9 mmol/L -2.0-3.0 code = 1927-3) Patient Temperature 37.0 (test code = 8310-5) FIO2 (test code = 1819) 21 Lab Interpretation Abnormal (test code = 80609-9) [facility] Hospital[facility] GAS, [id number] 02:04:48 Test Item Value Reference Range Interpretation [...] (BEAKER) (test code = 1819) 21.0 POCT-GLUCOSE [id number] 22:07:43 Test Item Value Reference Range Interpretation Comments POC-GLUCOSE METER 105 mg/dL 70-110 : TESTED A T [facility] 6720 [facility] (test code = [facility] Srikanth [facility], 1538) [address]: Systems Testing Laboratory Technician/Techni bart ID = [id number] for GO WILLAM LOZAEL POCT-GLUCOSE [id number] 16:18:37 Test Item Value Reference Range Interpretation Comments POC-GLUCOSE METER 118 mg/dL 70-110 H : Notified RN/MD: (BRAXTON) (test code = TESTED AT [facility] 6720 1538) [facility], [address]: Systems Testing Laboratory Technician/Techni bart ID = [id number] for PH INMEÑO, ABDOULAYE Tissue [id number] 14:59:34 Test Item Value Reference Range Interpretation Comments Case Report (test code Surgical Pathology = 104) Report Case: [id number] Authorizing Provider: Colby Bui, Collected: 09/07/2021 12:07 PM Ordering Location: [facility] Received: 09/07/2021 03:40 PM PERIOPERATIVE SERVICES Pathologist: Ciro Diamond MD Specimen: Mitral Valve, MITRAL VALVE DIAGNOSIS (test code = o4rdsMVjGDXcq3apWHOthDD 3220) uZzEwMzNcZnRuYmpcdWMxIH tccnRmMVxlcGljOTYwMVxhb cZvMZTwoHFaR6LhgyblYWcp SV2xED6sgKhaqIQzgHWsLRZ lKxPzx2asn194uJJur8yqXB NKmradqWi9cEyvL14sv8M4W zaeH17bcXYrLXW2TENmVXBa dMFbTSNeDPF5VYRjeMRvU0d dFUVqKR6cgdhpEZwyXCzhNV DbzBI5ZXTvuCAlP1ZoGGXsK PshYAMzrgw4TxBuDp8mtVRi eTcyMFxwYXJkXHBsYWluXGZ zMjAgTUlUUkFMIFZBTFZFLC YLRTTNG5oONlxyfYNbMEWHV WUZZYMPBAIKX2IACALNKMMC RMZND4JOKGDJLQbGQVPQUWP VW6BZOTIBYWFGT2TRPQQUSN kXZUVVF7KWGY8RFNYdcp59L YZ7WrKsd0K9THL3DBYbOAHk d8zjTPMpnCAoKiVwVfXhOnY eQiwycSArUIQeMrDdj2pmt7 04zKYxi6ikUBLlYbW6uHAgU MAsvWIxR582KJPqEXkvh8fw w8QyATHeuXXay4R2WLJGohg qfPa0zHnaN04tz0U3TnfhJ6 ajAKAhQHJaV8BaSO5aWVEgD tw6XVZ1OUA7YXLhDQKlX3Rw HD3xFQLblIOnLCb6o7dlrJj jYHReQJJ1z2siDOtychOgBV 7lff6jwXz0i1akcfBsAWEtW OUlaXOQTCMgZ5OuyOlwPs4i dRk6eZfbIycqNRO0Gjb9EX8 wfe78bcp8mCnmWYMwvfkxJt O8YZmjVXUmismeNAg2GKrvK URbkUE9KHVzfZZfF8KqGADj GV5iovd3BWX2UChuXHGdVkF 7DZLgtOAcHAWvdAhiUGvfl6 73IKA7RhOsZO1oB0Xtr2N7n Z1zhLIpYZTkyNHwKjThYDJh el1bxSBqJSxqp1RgTGZ0xmR 4zVQtaSRtMGBpSkB7PAmvEX 5sxm82UJUrFMX8el8itTUtu YpuhqKhrUKrCDikU5CmYZQt j008GVXbX2HaSDPyp9M9scC qEaAqKOPlfKE6fqW1KYWcFH 2tfaovp3hqKBbkTRscPZUxw qV0rjF0HNAcwLKiL7TwtP4e RXVwZR1xdhhdp0cwZIK6MYp aDIQzFGP5DlUbYAVhy4Rina r1JpXuq0SnjCKxEUszT96lr 165DYUvboByQ7pvrFUmvxow vJNpwvamUDrlzhD9LHYtKUy hqlkrXQVlZZuvZ0ubIiJmEZ QacParWCzjr4YiEINqFLAiI pUmoHLaDFWoRbz6QLAriVOo BRMzZwPeN0ciwsfrSyZHPUY cz8nzV9imbMPXrVIsT4NqRT hvbmUgTGluZTogNzEzLTYxN F05DUB4UOLbpz00 CPT Code(s) (test code r7nshSNeNWEhcLM1XuAdNQB = 3357) vd5vxm5GpsIGuxOJkUJpmoW QihiZnim13vGQ3fJ34FU2rY QDzMaH5MLWpcaW6Jtu9GDLs MZHvbCFfE061g1ukm8fmonE qvNT6zPezFEVsdfpkLoS8ZR naYOBzzbzmCMv9LIlzQRQpo MU4IPGycSOqX4WgIFAuSA2z mvc6LSG7LEaySPRbJvH0UZA wrNYoCVLjeChvGFrnx013XL D7LcWjLNHvbpXsoTmgeL4bM gFcDLX3UDPnUFsvLGV1 CLINICAL HISTORY (test j8leoNCoYFOnhOQ5IuJpYKP code = 3356) no2ffv4CcpJWyiEQcPQzynH MbjqSiml69uTP8vN13SN5kX PZlVcL4DSVvefN5Xtz1OGBc DWTdxLMhB059s1xvx9ntuaP zmUC0mAenUIUhoyneDvH8GE qhEMQwbxjiCJj4NXlxJVRam NQ3RVBjrTEfC6XyHAMiVV6z mgv9YIG4EXdcGEHqDsF1UQM tcWQhPODgiVtnCEvou470AO X5FgHxZVVghlJuuVxreX0dP nMyMCBBdHJpYWwgZmlicmls sOP1nI5nRTWodLAwPKcsydA cytLbyL5muGBfbGDhLM0hbI xwYXJ9 SPECIMEN SOURCE (test x3jsmTOwMXPomDM8YxHnZNW code = 3377) be4ksk4XozTVcaDEkQAkcvT JevpDrfi34pQD2kF70UX7vQ JSeHcX2LUVbmgN6Xku2THHc EIDkgLHqL905b6sgw9svziQ xfBI0wWfrMGHmtiaoVkX2IV mzJTTgqzztLLh4UZfgXCCte YT3GOPudNFpJ8PvFEQsUF9g nei4USW2NDzaQASjXqP4TTD foROeFLJbyBsvSWxeu003FM B9ShGcNBMsykKqlWbuvP1mL nMyMCBNaXRyYWwgdmFsdmVc cGFyfQ== GROSS DESCRIPTION t7rerPCbEZWzbCGsPwMuTEE (test code = 3366) gPICgu1sqIINnvYBkVaOgGu NcZnRuYmpcdWMxXGRlZmYwe 7mpl611qCGim0soQFNzOlW5 yIMaCFBqdMHhR307c0brk1r vvnSmwQK5TCLmFLO2HRljva VwhnQ9BOijyXRfJpZ1BWizp qHeJCznclZyexEbNsx3MMYl E327QWS6uLbko1fpFSE5HDR yTYHgTjVlCb6jdMNoS030SU NdVSPUEYRyjRn7EBXinmBxp zUtkIVZg430H854c7klZQQi hbWygCeNkqyox2gnS869MZG hcGVydzEyMjQwXHBhcGVyaD J7CQYgIA5hscvpNeZwJD7ja ggjWqSdGY8jwcw3LtHlNI3c cmdiNzIwXGhlYWRlcnkwXGZ ni4EqxgvhAF4xB0Vnh1W4yR 9maXRcZGVmdGFiNzIwXGZvc w7chDCrKOixr0OgEXU5uyX4 hIWclNLxZVNdHB85Asqzp6U tDnjxRYT9APDdmrNwt2Zuq0 anYzBnqoBkS7sjK8RuVGCyF SZuIPXuWcVwwvRrf8Rnp0Yc uNOlrNs8f2wyPEMwAYUzuVr be3pgJWN2JFLbK4A9pAHse7 uzUPmoTWIhlJA1hbgdMYalO HKijiL4mzanOUalUSUduZW6 kburABmeGIGgQfB6lwgiNWu sPIUzTIT2JGqxi766QRD8HV xzYmtwYWdlXHBnbmNvbnRcc GduZGVjXHBsYWluXHBsYWlu XGYwXGZzMjRccWxccGxhaW5 jCqDxKbLhEPviUA3jFPPkJ9 ugtTEoHYVrLQUiY7pdApSot E0piSfuMYosebMfXNBpKGIn Q9FnohGoKIHqINRzAOgpMtI hMQZnq4z0iHU1bYXdgFT9tP JwlRpwIbXuZR7ptBSkXX7nW UjtQXdbyvFxi2QdII61uVRx nsCewqTeMn5usPXniZM6BZv 2ZSIgaXMgYSAzLjcgeCAzLj XhtMGtUtBkM79jpLUfWW1rl PtuoyIbk5W9iQ4hBV4cEDsm cHccag28rNk7LBddg4mwN6v 9bLlxmYeqH2jktrNeTUOpzW Z2vSFbAJJuk7A0SE1iHRPrS ZImGYcrGTLac49pjQhyPQ3l tD70WS1mPNB0aBDtrPEwYYH 2rUfqc4CnTUBjP8pomaItTV K5XB0cnI9lAWMiQXZOcOZig 0ZlY7nyHI5amDNgy4MnaCWx rLmnp7LtyLaqtvIqENTaIWA opnKncq1vamIdHVTgt02cDN QbNRyfJL00oZAaKBYvYLJEH VBpOUZtiqBraIa2GCNdIHX0 vS0dvdYbwjFuc5ZwcJk8iFI kIGluIEExLlxwYXJccGFyIE ApQGqoJNIcO0EnaL2kAA1FD enqDSXnSAMHO3WeS50anNBd fQ== MICROSCOPIC g8vgsDMwOREglHZ7VmAhQIR DESCRIPTION (test code pl5get2RnsSIbbJLnRExakZ = 3371) RjmdJnja41nDP8jS70ZE3qQ TBoVqG0CBEzqvA0Ewn1TETy LARyeWTvQ353e8tqi2phdkM cqBU3cQbwXYFlfnadHpM8CR pjHUGpgbzvFOg9QTtrVBRev IU0YYKgzRUeD7DgZMJbTW7a xfm6EIC3WNjsRQFjAjM6IMG akLEoMAPalHydULsgf647BN Z3XuSsMQXereZelIoekI0qV gGkZBNZVKVmo3UcLYKpLWDc cn0= Gross assessment was [facility] performed at ([facility], code = 2777) Department of Pathology, [address] [place] [address], Technical component [facility] was performed at ([facility], code = 2778) Department of Pathology, [address] [place] [address], Professional component [facility] was performed at ([facility], code = 2779) Department of Pathology, [address] [place] [address], [facility] HospitalTissue [id number] 14:59:34 Test Item Value Reference Range Interpretation Comments Case Report (test code Surgical Pathology = 104) Report Case: [id number] Authorizing Provider: Colby Bui, Collected: 09/07/2021 12:07 PM Ordering Location: [facility] Received: 09/07/2021 03:40 PM PERIOPERATIVE SERVICES Pathologist: Ciro Diamond MD Specimen: Mitral Valve, MITRAL VALVE DIAGNOSIS (test code = u0oriQDtYSFkt0etHZJdbED 3220) uZzEwMzNcZnRuYmpcdWMxIH tccnRmMVxlcGljOTYwMVxhb aHaYBCcaHIwR0DptcwtTQkk CL2dKM1twKrqlFQfnALbQSD kKsHez1ufz316eIAge1xoQC JHuwjlhAs2jDhnG05ri6M2H yngJ24msGGrIEV7ESZlBYLg uUTyJINiNSJ5ZJAtwQZaL1o hKKZaNI9xhzrnVXnlYRfhYB VopFW2BBEohAHiD3MnGBBzE OkcGKFjplk3FaCiSl7omTAy eTcyMFxwYXJkXHBsYWluXGZ zMjAgTUlUUkFMIFZBTFZFLC FKEVWFC6nNEemfhOSqVLVJZ RQDMSKZIQXWK7EJJZHFZGMA IQZYD4KTYTXNVOlSVUQWITP RL5XZVKKLLHHUR5BIRGCMKF jOJDJGU1DKYO8FWTXgah05B GR8RrGrl2K8JCC8PCUeIMCq h2cwOZGhkIWsIpFvJmZqMfM kVzgcwYFvRSKkKyLtw9vro1 68zAPno7muHENrHtY1xIDjM NNinUMcL541LHWsGUkix7gu d1DbGZGnfFUjr9M3QRKKjhh umEy1zVfiJ73rq3W1GrtfN9 biDMOqDBFdE3UzVP6eJIQtD ef4KCK9PDH7GGUlAOCoX8Gh IC8dUYGmwPUgNKk0n1ppfMn oZJPdTEY0c0lcZJaqufRbBK 1aaa9bbPn3c1orcaRfHQEcP SExdXUHGZTaH4QtaXusDx8b nDa4gMxbVcwwUDL6Ctt7NJ7 mak30tdv0cNksTBObxgpfUv D0QPfpGPVoihwcSJu0BGabI KSvkMI4DBDduSInR7YoWXJg TO8tfpj8REZ1HCfgJDNoSlC 7WZAgcBBuDURfsHyuLQmms0 07HJE8FcCxZV6tV5Uzp6U5d B1pxYNnXOTwhPZcSuMdIPJi eh1erXSgWEmwi0HwMGS2lwG 3cSNhjEUzKBKoKtX5UNxaOJ 0hzb66GMPyIIG9pw6ygJFyn CtesgFqsDNaTBttJ1BoPSEe f560MJIgL4NyUIJla2O4jiU hIdWmUPUjcJJ0abL1GSJfAT 8qajvyt0maTTbuKEmbYDOts zK0eqG1GYVdnQRiV7EleW1k QDUrAP4nhyyha9mzIQF1JYm gCAVuSVK5NsIkNCVfw4Psru z4NrGek9HkwPRfRCvwL79cz 491VEFretNaB7jqbYHobvsd uQZkajyzXZuvhqZ6HNVfDLc uceziUTFsHMxgR8ibIhSaXC MqcRcrJCvwo8UhHGWvCQLzO cSfqLTnIHTbTua7XPNnyIHb ACHxUbCdB5dluhawXwZMLHP np2onM3admDLJnJTrC4PfAP hvbmUgTGluZTogNzEzLTYxN O88ZMY9GXCzas97 CPT Code(s) (test code m3ioyTXuVLMczRC5VyVmSUY = 3357) hi0hrb7DblIFvcXTnTNosqY XackKucj83hZX6qZ18OL7dG BCmOtL9RDXoqcP8Iuh9LFZx ULBixPHiX703z5jlm4zinyQ xiTT4nXstVIOonmhjOoJ8BA ryKCWwfeusQFl9KRznPHQcp IW0BZYewQOyQ0RgVFBeTB5r dsy6DDX4LXrqFVOrIiO2QSX xcOEvFYEfqCqhBKnoj318BM T1FaZsQPZyxuTcqGxlcR3cZ qSpDCO2ZDPhTOmxQAP6 CLINICAL HISTORY (test f2tsoCVtJYEmjAZ4RhAqZCE code = 3356) jw6iri9GppOJxuQYtBIhqqC VtxaBero32iPF4jE33HF6lZ DFwYzR2PBPhulI0Lem5PXNi RHKitATeM335f2gnl5vqpgJ enYW4gWeuYQAexxmcDeU3JT xrXIRhvhohFKq7RIjoCVJyz HX7EGQscEAyB5AsVCQeDZ1g pjr0FDU1OAehIOMtGgI8DCM tcIRdLZKtdZnsXMtfs567DM J4SqIwXGFvllJzsGsjjA1yX nMyMCBBdHJpYWwgZmlicmls oNV4zR6cJIOkwEBwYZkuoxV yfeOkiG5vlPPysRMsBW7iaX xwYXJ9 SPECIMEN SOURCE (test b2vnfCNoECYjqWK8HgZgEXM code = 3377) ux5bkv1XasKZsqRJlOInyzM LllvKmio66kJE7rR10PV8fV GXlTfS6ZBXmfyC9Tnt0IZJb CAWkeZBfD158t7irk7jvyxR lfGA0nCgqRDZjoejiQrH7GQ faNCLofinaJFy7DVjvNEXde BS6CDVvfIFiN4PwDIEjIC7n cmf1ZMH8YRdwHJQmZvY9WEG boHLfKBPvyAckMUyxn636DO N7IrOvTXZfpwMouKdprQ5sX nMyMCBNaXRyYWwgdmFsdmVc cGFyfQ== GROSS DESCRIPTION g4ybxELcNDTbqFBtOtReOGY (test code = 3366) gGJScm3xtBMDqyDVkWkJnSa NcZnRuYmpcdWMxXGRlZmYwe 8lne423gOOke4ruVKBeVpH2 oSZmRLDjiGBvY251p1pcm6e ebnLciJV0IYUxALC4LGkbsb XnpsQ4SDanmPPxDbS4VEicz pHsFCuihcRkbgRdYso8GJZv V263OJI7pDore7niRXU6OBM fHTUgToPmIl0rlCNmN338FP WwNFKCZDLpdRa5MPDtbdSvi rQieSMUt955N281l0biWBDz byBljKmMjqfiv9dxQ906VUW hcGVydzEyMjQwXHBhcGVyaD C4MLNkAZ4gvdhhCcYaGP1uy stfLjNiEL2boih4PoXxLS4o cmdiNzIwXGhlYWRlcnkwXGZ wg1IyxdeyNH4aV6Stu0K3sK 9maXRcZGVmdGFiNzIwXGZvc c7zaDMvJQdtt2XrKIO5glE2 cVPjwPLdPGHoXX81Lplhi6P fFeowMGD7OWNpjhDrw5Hhv0 feIgTjcoDnM4ybU9YqUHMqD QPbRUCkAvKkmbRlq5Gbj0Fl hDDuuZv1p0uvQQEpBAEnuDd fg8gkWTS3RTCjL6J8cBBms4 tjUHwkQWTlfAF4zppuEQueS IGawyI3eszcDZdfLVFprIZ2 jsbuKEplMUYkMmY8lqqoGNn nMNCnLJB7JFtzp095VLW2OH xzYmtwYWdlXHBnbmNvbnRcc GduZGVjXHBsYWluXHBsYWlu XGYwXGZzMjRccWxccGxhaW5 jXsAjMkWoVUobWZ8wSBBxQ0 cwuTAaTRWtKUZnI1vuYmKei U7ahUroXByzxoAjKHXqHTFw W8NggrAgTKXhKGEfJZswRwC cTAMfm7d0gOQ9bJXddRK9vU BueFmhJaIwOP1bfTOgBH4nK VglKQfwpzFcc4HqCB02mUGl qsDmngLjEf4rlSMrjCN0IOc 2ZSIgaXMgYSAzLjcgeCAzLj LvbDIrQnUmM48beIVwBP5ex TdbgqLyc7Y4eL7iGB3hUZho nYvwxy66vBb4LTcdu6bhZ7k 5jGlihDtgG7felbEaEZZnxM F9lIRxSFDkm5A8LY3aIGBmP DLbKXqfBPMxn25uuFabSA3l aF91LI3xXJI0aBLaaGHpNIB 6rThhx1HtLAOgB8cldsTfGJ P1VX7ubU6uNSGnGHCEzPPdz 2IrI7ojET9mqVEug3LzgGEn kEbmu4SkhTgctkGfIOJvOQT duzTnkz3floXhEORxn69mSC SsQUsgDI12jFAlSBBiAJMBV DAqZVEsekAleJq1GHTkEUM4 iJ7bmmDlmoJsi6NgaSn7oYD kIGluIEExLlxwYXJccGFyIE GbONxtXGYfK6QloP3vHB1UY iikLFGpHMFZR5GfD44ydGVo fQ== MICROSCOPIC m3nmaQHaKFJeoJL6LmYyUYX DESCRIPTION (test code ss3otr8CopBYroHYlXNpgfZ = 3371) XxsaMprj55gPP2tT81IA3nX SLnHmX0FZCcwlB7Ozu0YWSz FPBdyBVzF086d5nzy7evrcW spPA7iGuhHNZutfsyXvX6ZI srWPJjxaxzVUm9JRujKEJhl GL2GZRleAJlB6RhUTVeEI4t qyq7WSQ9AEpvPQDdEhK6EAR rcEGxDODtfIzpWYexj216JA U6IjUhWQEvrmUmcEhbuI2uL bOmOHAQYQDsz4RhHUIeDQXw cn0= Gross assessment was [facility] performed at ([facility], code = 2777) Department of Pathology, [address] [place] [id number], Technical component [facility] was performed at ([facility], code = 2778) Department of Pathology, [address] [place] [id number], Professional component [facility] was performed at ([facility], code = 2779) Department of Pathology, [address] [place] [id number], [facility] [id number] 14:59:34 Test Item Value Reference Range Interpretation Comments Case Report (test code Surgical Pathology = 104) Report Case: [id number] Authorizing Provider: RamyaColbyrhoda, Collected: 09/07/2021 12:07 PM Ordering Location: [facility] Received: 09/07/2021 03:40 PM PERIOPERATIVE SERVICES Pathologist: Ciro Diamond MD Specimen: Mitral Valve, MITRAL VALVE DIAGNOSIS (test code = [id number] 3220) uZzEwMzNcZnRuYmpcdWMxIH tccnRmMVxlcGljOTYwMVxhb fVeCFItbROoW6IyhsuoUEfn WG3qJL1jyTqmjJDhoVBfMXY bBvSyq4cuk589cHZak5iuIO FNpozvxSg5cUpaD54tc9C3Z nqtR50uoJIyCMM2OORrSJMo iIPaKCCxPVA1OSSwpMHfE7m zJBIgGD0enyxsOFfpZPsiJL CadRJ4QSOdkQZaL1KyBDIuX WmyDFRzvcw4BdPeBi5cbVBd eTcyMFxwYXJkXHBsYWluXGZ zMjAgTUlUUkFMIFZBTFZFLC OLVMHZK7iEPotqxLTmQBDJB GCTJHVIXPMTX2JAYJGOZBRL NTPQI6WQLQQTFEqFJDDGNNH JX6RAUONLLUSFM4ZDDBBRYF rJUDKZQ3AASS9GZIUcdi50M EQ2GmSix1K1BYX4RORgQMWr b1deKTUdjWOcUfXzLmEyAfV dEbryeIGfQAXiZnYar1fnn1 43tXPvu1eeIOGyFaP0kLZjN IGdnOXsI793MPKiJFlwc0uj p3SbSQWawVCze4H8HZMGvvo ayMp7zSsiA41zv3I3AaggC3 aeYSEbYEGwN1GqSB6qIVGpS ol9KRB1RPE2BSWwWFMwW5Or OE0gJIWyrRObEWs7y3seaOx iILPzHJF9t0ltQVdirpPiCW 9ywz2yzQe2m2jzvvXtLKIjF GGrdTLLMOQyI8FqkZrxNh5b eHj8jFeyLfqjFIR5Lny3TO6 zmz58mrt6zZgfLGMmpihkXr C8UWbbPARbmwpnSRd8WIncY URweON5PVJlcWLxI5JgHCGy QL8zfdn9BGG8IDazRIWzBwT 2IFYfeQJpLRWdwMqyQSnpv9 59SKP6IcNgSQ5yO9Nby3Q8h E4qxXLpSPXxhIQaZxJeUAWz gw4drLMuPEqou8OvUOU0pxZ 8bLDzcUIsIPUiPhE9GAhqCV 2rjp87FEEkWCY2hu6moBLnj UbvsiFhdXUaWJxrT3NcYTGe m186GNKqR0DnOQEya9P1hoQ sGrLtODCfiVJ0moX0URPdEV 7icpoeg7vuORbuVKkrJJFcb uG7jvW0JUIioNTbG9VzgX3e FEMoAC5tujggz5pySXG0HYs iROJpAVY4TmWtVHBwi8Goak q5HbUlc7EmzXYxKNnxJ12hf 972MRGxjsJuF9nezLFfnxft hDLjntrgCSueufP1FLIiPVm oyiybNUQgCDxfZ2isFeQsPF SqtNjuVWsym4BvFGYaPOXpO qFqkBGiXTRrUjd1ZGYkqUEp LUFnOxQrX3ubwejtXiKHCBZ qi1ysS8ghyJXVcNEdS5UvTQ hvbmUgTGluZTogNzEzLTYxN O91BUB9TZXxxm52 CPT Code(s) (test code t9bnaMYmGANhyKB1WyOqRSB = 3357) wf7xks6FhuPPwuQFqXHaayS KysiJhvz50sZB7oP34GM2cA HGoEmI1JEPhzgE9Vfj3RNYh WDNzqIQsF086k3jfn6givsA lzKH4lMtsLGPcqqqjUmG3SS ytQIFnccpcYJh3JWixPQBfi QY6OQAvmWVfW4TcMENwDO7a pck1XKH4TVybQHMfVsU2ISD ulYYxKQHifIbqODkdh554IR P4JbRvUWJvwyNtrBfjuT5uX qFzXFQ0JAQvWJgjDZO1 CLINICAL HISTORY (test r8fhvHCkPFCtrFG5CoVsDRJ code = 3356) sn1ggk4CofSVirLNaTHirsT UjhcLmux47nAW0rR62TM3vH DFfMnG8NYBplnF7Vji4APFo ETBhbROzB673w9ucn1waqbK smMF8dIkwMOGajdsuSbO9LJ xjAPNlkcmzGRg5JQgoYOVso WT9IGCicUJaU2McGXOdCV3r izf6ZQD3TIfvXWDaEqS4DXO cwRHqHIDnfJnwRYuqf000UT L2BcCcRKCjwfGbdRgyuY7cS nMyMCBBdHJpYWwgZmlicmls fWE4tX4eDFAlcORySHtddpN qzyWgaA0etSDctOGoRB7ykY xwYXJ9 SPECIMEN SOURCE (test q9jumNVtBDSuzSI5GyQjPEY code = 3377) xu0pzc1RmcKInhIKhDUvajB UanbMpqj24bKP2iY14QB8kH JDqXsZ3XAWqjuM8Vwq9DNUy UGNcmNQcN915x1prb6vzrlX wuKR1ePyvSOPxhfmqBqD1GJ otRPZfddkrBVu6PAxnYEOfp OV7GPCpnFNdI2CfBKZiGI8t pjw7OSP9NEcaLAGdXpK7PKN xxBRkZKMmuRnhZJwyl910PE L6GyWyEBZjpzKvnRbpvI6sM nMyMCBNaXRyYWwgdmFsdmVc cGFyfQ== GROSS DESCRIPTION h3kndFOxNRIibHSdXxBbADL (test code = 3366) bLMImh7esQTLgwBGbVuZdOo NcZnRuYmpcdWMxXGRlZmYwe 6bgz593tHKoe5fwULBvLcR6 tYYuPEGkwHPxW023v6efv2l zdpMgsLL8ZKCpLFM0LTvyha UrchR3OBwrtTGqDuR7EXyux pVdTPymgyWillAhXto7GIBr W366SZC0hHtnf4duJAA5AGH aWELpJkUxXd1itPLsH803UX SsPBBYMVYpzFn6LFIcjsUxu lTvhLYVx303S180a2mcLEFo xrYdoOgIsjzzi4rdD771QGU hcGVydzEyMjQwXHBhcGVyaD J7PLHtUT6bsosfRcEyBZ8nb dxzLkLzMP1qnmz0HuJiMI2q cmdiNzIwXGhlYWRlcnkwXGZ cr7VjtntfGF6sF3Usj4J3cH 9maXRcZGVmdGFiNzIwXGZvc r4czPNhMPmkj2FxSNH5jtT4 iBDctKTvVWGnOP38Dzoaa5E vJjwdCBJ0ZAKemcVyw1Jab9 yuGgQtcyDpM2tcL0KsXWOnY XPgIQNsKoKdkwNxw3Ydz7Uc kEPbkAv0q1vuUREyAYUbnMf md4bzLOQ5SCDlD1D7sDMmf0 ssJYlxJCYhkOI9togkPWqhO KNdlfH0cuxwKHnkRQWkpYB4 wsskRGonOFYcVtU5ntukCWq eSAPeMRI4QVrel282NJO0ZE xzYmtwYWdlXHBnbmNvbnRcc GduZGVjXHBsYWluXHBsYWlu XGYwXGZzMjRccWxccGxhaW5 iWgWjAaQdXCrbCB8wZIAjP2 cicRUcPPWxVXOqY0giNiMhc X3duRtvKFaqvbAhDWHdAPRd L7WcpgViMEOcJROeZAmoHgJ cDOYdl4v3eXC2bQWksPJ4jU ErfOsbMwIdDR0oyWXwFJ2xS YadKOxdtbVzt2LfCK89kQCm moDydpZwCf1pyPKkvSQ3EIp 2ZSIgaXMgYSAzLjcgeCAzLj NnnFWfCyDrX34dpXFaFU8zw BcregZgs8N9aY4iNG8lTJcf tVdvyz13wFp4NCpfn1bzL0v 7xVsjiWevU5nhwsGkMSJmcL B8pISeVFYvn5U9PC7vUTVrT NKtXQdbTCIbl08duQekZZ5d pN71FQ3fPYA2qXOxhWDxPVV 6wXkyi6KoTOSsY4yooeBvTT G7IK2pmS7zEAXfBONZzTMox 7UrA3rfAL1jhFNdu1WwiLUu dNnfl6IyeZyscpVcDVLgXVY rriKuyl5mevHbHCAhp97pYF XqLFuoWK83kPUyQQYgSAVXT KVgSWZcpkPpyQn3MOYmOHN5 lJ4ovdEdcpQzy0QbvDm1qRK kIGluIEExLlxwYXJccGFyIE WhGXflUTHaD3QigA7yFY0VJ xorRKVpKDVLV5TiB08diZCw fQ== MICROSCOPIC j5rtaQJbTIOizQC6CpEzJPW DESCRIPTION (test code ho7iqe3JeoMYuvSPpQAfbrH = 3371) NfntZfhr86vNG2yW88KC1fH UWfDiH1MCKispN4Rtm5UYBi JVDqjMIqD950c6bdd7wolgG vfBF1oTnqWIDohiqxExB8MQ kbRJQkakjmMMs7QRnkWIHnd VR1CSEabTAnJ5SdKTNlPL0y mwu4ERS9OXqrSWEyNnT3JZX irGAzAVEmvXweTYzvz946SC A0SjDxDGIldzRuxJobaY2yU hSfEWSPRWDir9BzRXWdVRHg cn0= Gross assessment was [facility] performed at ([facility], code = 2777) Department of Pathology, [address] [place] [address], Technical component [facility] was performed at ([facility], code = 2778) Department of Pathology, [address] [place] [address], Professional component [facility]. ke's was performed at ([facility], code = 2779) Department of Pathology, [address] [place] [address], [facility] [id number] 14:59:34Surgical Pathology Report Case: [id number] Authorizing Provider: Colby Bui, Collected: 09/07/2021 12:07 PM Ordering Location: [facility] Received: 09/07/2021 03:40 PM PERIOPERATIVESERVICES Pathologist: Ciro Diamond MD Specimen: Mitral Valve, MITRAL VALVE MITRAL VALVE, EXCISION:VALVULAR TISSUE WITH DEGENERATIVE CHANGES AND FOCAL CALCIFICATION Signing Pathologist Direct Phone Line: [phone] signed by Ciro Diamond MD on 09/12/2021 at 2:59 [id number] fibrillation, mitral valve insufficiencyMitral valveA. Received fresh labeled with the patient's name, medical record number and "mitral valve" is a 3.7 x 3.4 x 0.1 cm triangular portion ofyellow-white, slightly thickened valvular tissue. There is a small amount of attached, thickened chordae tendineae. The specimen is serially sectioned and no gross lesion are identified. Representativesections are submitted in A1.SASHA Graf, URSULA (ASC)cmPerformed.[facility], Department of Pathology, [address] [place] [address], [facility], Department of Pathology, [address] [place] [address], [facility], Department of Pathology, [address] [place] [address], RLFDYJI, [id number] 13:07:17 Test Item Value Reference Range Interpretation Comments CALCIUM IONIZED (BEAKER) (test 1.12 mmol/L 1.12-1.27 code = 698) PH, BLOOD (BEAKER) (test code = 7.49 1810) [id number] 13:05:22 Test Item Value Reference Range Interpretation Comments Potassium (test code = 4.1 meq/L 3.5-5.1 Speci men 2823-3) slightly hemolyzed EMERSON (test code = EMERSON) Systems Testing Laboratory Technician ID - MARZENA M Lab Interpretation Normal (test code = 62967-7) [facility] 13:05:22 Test Item Value Reference Range Interpretation Comments Potassium (test code = 4.1 meq/L 3.5-5.1 Speci men 2823-3) slightly hemolyzed EMERSON (test code = EMERSON) Systems Testing Laboratory Technician ID - MARZENA M Lab Interpretation Normal (test code = 50538-7) [facility]assium2022-01-25 13:05:22 Test Item Value Reference Range Interpretation Comments Potassium (test code = 4.1 meq/L 3.5-5.1 Speci men 2823-3) slightly hemolyzed EMERSON (test code = EMERSON) Systems Testing Laboratory Technician ID - MARZENA M Lab Interpretation Normal (test code = 78970-2) [facility] HospitalPOTASSIUM2022-01-25 13:05:22 Test Item Value Reference Range Interpretation Comments POTASSIUM (BEAKER) 4.1 meq/L 3.5-5.1 Specimen slightly (test code = 379) hemolyzed Systems Testing Laboratory Technician ID - MARZENA [id number] 13:05:21 Test Item Value Reference Range Interpretation Comments MAGNESIUM (BEAKER) 2.2 mg/dL 1.6-2.6 Specimen slightly (test code = 627) hemolyzed Systems Testing Laboratory Technician ID - MARZENA [id number] 13:05:21 Test Item Value Reference Range Interpretation Comments PHOSPHORUS (BEAKER) 2.6 mg/dL 2.3-4.7 Specimen slightly (test code = 604) hemolyzed [facility] Testing Laboratory Technician ID - MARZENA MPOCT-GLUCOSE [id number] 11:29:26 Test Item Value Reference Range Interpretation Comments POC-GLUCOSE METER 126 mg/dL 70-110 H : Notified RN/MD: (BRAXTON) (test code = TESTED AT [place] [address]) [facility], [address]: Systems Testing Laboratory Technician/Techni bart ID = [id number] for PH ABDOULAYE ROAJS POCT-GLUCOSE [id number] 08:03:15 Test Item Value Reference Range Interpretation Comments POC-GLUCOSE METER 98 mg/dL 70-110 : Notified RN/MD: TESTED (BRAXTON) (test code = AT [place] [address]) [facility], [address]: Systems Testing Laboratory Technician/Techni bart ID = [id number] for PHIABDOULAYE CHAPMAN Venous doppler arm, [id number] 06:52:54Ejection FractionSLEH ECHO HEARTLAB MKCKESSON [facility]byterian[facility], [id number] 06:52:54Ejection FractionSLEH ECHO HEARTLAB MKCKESSON [facility]byterian[facility], [id number] 06:52:54Ejection FractionSLEH ECHO HEARTLAB MKCKESSON [facility]CH[facility] OaklandRAD, CHEST, 1 VIEW, NON DEPT 2021-09-12 06:05:00while patient is intubated or has chest tubes.Reason for exam:->Status post CV SurgeryShould thisbe performed at the bedside?->Yes [facility] 1945 Sex: MFINAL [...] MDReport Verified Date/Time: 09/12/2021 06:05:44 TIC FUNCTION [id number] 04:15:05 Test Item Value Reference Range Interpretation [...] (test code = 46 U/L 6-55 347) Systems Testing Laboratory Technician ID - MARZENA HIZLJXJXJG1063-92-28 04:15:04 Test Item Value Reference Range Interpretation Comments MAGNESIUM (BEAKER) (test code = 2.4 mg/dL 1.6-2.6 627) Systems Testing Laboratory Technician ID - MARZENA NKYIMNVWOBE4414-01-33 04:15:04 Test Item Value Reference Range Interpretation Comments PHOSPHORUS (BEAKER) (test code = 3.3 mg/dL 2.3-4.7 604) Systems Testing Laboratory Technician ID - MARZENA MBASIC METABOLIC [id number] 04:15:03 Test Item Value Reference Range Interpretation [...] S NOT APPLICABLE FOR DIALYSIS PATIEN TS. Systems Testing Laboratory Technician ID - MARZENA MPT/[id number] 04:11:05 Test Item Value Reference Interpretation Comments [...] (test code = 47.6 See_Comment H [Automated 46858-8) message] The system which generated this result [...] valves. Lab Interpretation Abnormal (test code = 74024-3) [facility] HospitalPT/[id number] 04:11:05 Test Item Value Reference Interpretation Comments [...] (test code = 47.6 See_Comment H [Automated 44289-8) message] The system which generated this result [...] valves. Lab Interpretation Abnormal (test code = 95082-9) [facility] HospitalPT/[id number] 04:11:05 Test Item Value Reference Interpretation Comments Range Protime (test code = 15.8 See_Comment H [Autom ated 5902-2) message] The system which generated this result transmitted reference range : 11.9 - 14.2 seconds. The reference range was not used to interpret this result as normal/abnormal . INR (test code = 1.28 See_Comment [Automated 5011-6) message] The system which generated this result transmitted reference range : <=5.90. The reference range was not used to interpret this result as normal/abnormal . PTT (test code = 47.6 See_Comment H [Automated 07836-0) message] The system which generated this result [...] valves. Lab Interpretation Abnormal (test code = 94180-1) [facility] HospitalPT/[id number] 04:11:05 Test Item Value Reference Range Interpretation [...] mechanical heart valves.CBC W/PLT COUNT & AUTO [id number] 04:06:36 Test Item Value Reference Range Interpretation [...] (BEAKER) (test code = 2801) Blood gas, [id number] 04:00:34 Test Item Value Reference Range Interpretation Comments pH, Arterial (test code 7.47 7.35-7.45 H = 2744-1) pCO2, Arterial (test 33 See_Comment L [Autom ated message] code = 2019-8) The system [employer] generated this result transmit dante reference range : 35 - 45 mm Hg. The reference range was not used to interpret this result as normal/abnormal . pO2, Arterial (test 144 See_Comment H [Automa dante message] code = 2703-7) The system [employer] generated this result transmit dante reference range [...] 21 Lab Interpretation Abnormal (test code = 33708-6) [facility] HospitalBlood gas, [id number] 04:00:34 Test Item Value Reference Range Interpretation Comments pH, Arterial (test code 7.47 7.35-7.45 H = 2744-1) pCO2, Arterial (test 33 See_Comment L [Autom ated message] code = 2019-8) The system [employer] generated this result transmit dante reference range : 35 - 45 mm Hg. The reference range was not used to interpret this result as normal/abnormal . pO2, Arterial (test 144 See_Comment H [Automa dante message] code = 2703-7) The system [facility] generated this result transmit dante reference range [...] 21 Lab Interpretation Abnormal (test code = 89810-7) [facility] HospitalBlood gas, [id number] 04:00:34 Test Item Value Reference Range Interpretation Comments pH, Arterial (test code 7.47 7.35-7.45 H = 2744-1) pCO2, Arterial (test 33 See_Comment L [Autom ated message] code = 2019-8) The system [facility] generated this result transmit dante reference range : 35 - 45 mm Hg. The reference range was not used to interpret this result as normal/abnormal . pO2, Arterial (test 144 See_Comment H [Automa dante message] code = 2703-7) The system [facility] generated this result transmit dante reference range : 80 - 90 mm Hg. The reference range was not used to interpret this result as normal/abnormal . O2 Sat, Arterial (test 99.0 % 96.0-97.0 H code = 2708-6) HCO3, Arterial (test 23 mmol/L -29 code = 1960-4) Base Excess, Arterial 0.2 mmol/L -2.0-3.0 (test code = 1925-7) Patient Temperature 37.5 (test code = 8310-5) FIO2 (test code = 1819) 21 Lab Interpretation Abnormal (test code = 18379-5) [facility] HospitalBLOOD GAS, [id number] 04:00:34 Test Item Value Reference Range Interpretation Comments PH ARTERIAL (BEAKER) (test code = 7.47 7.35-7.45 H 383) PCO2 ARTERIAL (BEAKER) (test code 33 mm Hg 35-45 L = 384) PO2 ARTERIAL (BEAKER) (test code = 144 mm Hg 80-90 H 385) O2 SATURATION ARTERIAL (BEAKER) 99.0 % 96.0-97.0 H (test code = 386) HCO3 ARTERIAL (BEAKER) (test code 23 mmol/L - = 388) BASE EXCESS ARTERIAL (BEAKER) 0.2 mmol/L -2.0-3.0 (test code = 387) PATIENT TEMPERATURE (BEAKER) (test 37.5 code = 1818) FIO2 (BEAKER) (test code = 1819) 21.0 Lactic Acid, [id number] 03:57:33 Test Item Value Reference Range Interpretation Comments Lactate, Art (test code = 0.8 mmol/L 0.5-2.2 2874) EMERSON (test code = EMERSON) Systems Testing Laboratory Technician LOBITO - MARZENA M Lab Interpretation (test Normal code = 73047-7) [facility] HospitalLactic Acid, Tjfgpboi5260-49-58 03:57:33 Test Item Value Reference Range Interpretation Comments Lactate, Art (test code = 0.8 mmol/L 0.5-2.2 2874) EMERSON (test code = EMERSON) Systems Testing Laboratory Technician LOBITO IVAN M Lab Interpretation (test Normal code = 12502-4) [facility] HospitalLactic Acid, [id number] 03:57:33 Test Item Value Reference Range Interpretation Comments Lactate, Art (test code = 0.8 mmol/L 0.5-2.2 2874) EMERSON (test code = EMERSON) Systems Testing Laboratory Technician ID - MARZENA M Lab Interpretation (test Normal code = 12304-3) [facility] HospitalLACTIC ACID, [id number] 03:57:33 Test Item Value Reference Range Interpretation Comments LACTATE BLOOD ARTERIAL (2) 0.8 mmol/L 0.5-2.2 (BEAKER) (test code = 2874) Systems Testing Laboratory Technician ID - MARZENA MCALCIUM, [id number] 03:56:36 Test Item Value Reference Range Interpretation Comments CALCIUM IONIZED (BEAKER) (test 1.13 mmol/L 1.12-1.27 code = 698) PH, BLOOD (BEAKER) (test code = 7.48 1810) [id number] 21:01:53 Test Item Value Reference Range Interpretation Comments MAGNESIUM (BEAKER) (test code = 2.2 mg/dL 1.6-2.6 627) Systems Testing Laboratory Technician ID - OSMARBASIC METABOLIC [id number] 21:01:52 Test Item Value Reference Range Interpretation [...] S NOT APPLICABLE FOR DIALYSIS PATIEN TS. Systems Testing Laboratory Technician ID - DBHemoglobin and yhjqjaryfu4944-23-24 20:37:40 Test Item Value Reference Range Interpretation [...] = 4544-3) EMERSON (test code = EMERSON) Systems Testing Laboratory Technician ID - [id number] Lab Interpretation Abnormal (test code = 81206-9) [facility] HospitalHemoglobin and mlnjipjkjn4786-31-46 20:37:40 Test Item Value Reference Range Interpretation [...] = 4544-3) EMERSON (test code = EMERSON) Systems Testing Laboratory Technician ID - [id number] Lab Interpretation Abnormal (test code = 20275-7) [facility] HospitalHemoglobin and hhqezacrye6467-18-83 20:37:40 Test Item Value Reference Range Interpretation [...] = 4544-3) EMERSON (test code = EMERSON) Systems Testing Laboratory Technician ID - [id number] Lab Interpretation Abnormal (test code = 64888-1) [facility] HospitalHEMOGLOBIN AND [id number] 20:37:40 Test Item Value Reference Range Interpretation Comments HEMOGLOBIN (BEAKER) (test code = 8.3 GM/DL 13.7-17.5 L 410) HEMATOCRIT (BEAKER) (test code = 26.6 % 40.1-51.0 L 411) Systems Testing Laboratory Technician ID - 6000POCT-GLUCOSE [id number] 20:36:55 Test Item Value Reference Range Interpretation Comments POC-GLUCOSE METER 110 mg/dL 70-110 : TESTED A T [facility] 6720 (BEAKER) (test code = [facility], 1538) [address]: Systems Testing Laboratory Technician/Techni bart ID = [id number] for BEVERLEY WIGGINS POCT-GLUCOSE [id number] 16:19:31 Test Item Value Reference Range Interpretation Comments POC-GLUCOSE METER 127 mg/dL 70-110 H : TESTED A T [facility] 6720 (BEAKER) (test code = [facility], 1538) [address]: Systems Testing Laboratory Technician/Techni bart ID = [id number] for ABDOULAYE WOODS [id number] 12:45:58 Test Item Value Reference Range Interpretation Comments MAGNESIUM (BEAKER) (test code = 2.4 mg/dL 1.6-2.6 627) Systems Testing Laboratory Technician ID - XQMICYOAZYTB4714-42-47 12:45:58 Test Item Value Reference Range Interpretation Comments PHOSPHORUS (BEAKER) (test code = 2.7 mg/dL 2.3-4.7 604) Systems Testing Laboratory Technician ID - RMBASIC METABOLIC [id number] 12:45:57 Test Item Value Reference Range Interpretation [...] S NOT APPLICABLE FOR DIALYSIS PATIEN TS. Systems Testing Laboratory Technician ID - RMCALCIUM, [id number] 12:25:40 Test Item Value Reference Range Interpretation Comments CALCIUM IONIZED (BEAKER) (test 1.09 mmol/L 1.12-1.27 L code = 698) PH, BLOOD (BEAKER) (test code = 7.46 1810) Oxygen saturation, [id number] 12:25:23 Test Item Value Reference Range Interpretation Comments O2 Saturation (Measured) (test code = 53.2 % 01968-0) [facility] HospitalOxygen saturation, [id number] 12:25:23 Test Item Value Reference Range Interpretation Comments O2 Saturation (Measured) (test code = 53.2 % 89550-0) [facility] HospitalOxygen saturation, [id number] 12:25:23 Test Item Value Reference Range Interpretation Comments O2 Saturation (Measured) (test code = 53.2 % 45260-9) [facility] HospitalOXYGEN SATURATION, [id number] 12:25:23 Test Item Value Reference Range Interpretation Comments O2 SATURATION (MEASURED) (BEAKER) 53.2 % (test code = 1455) POCT-GLUCOSE [id number] 11:12:10 Test Item Value Reference Range Interpretation Comments POC-GLUCOSE METER 87 mg/dL 70-110 : TESTED A T [facility] 6720 (BEAKER) (test code = [facility], 1538) [address]: Systems Testing Laboratory Technician/Techni bart ID = [id number] for HINT ON, PABLITO POCT-GLUCOSE [id number] 08:30:46 Test Item Value Reference Range Interpretation Comments POC-GLUCOSE METER 120 mg/dL 70-110 H : TESTED A T [facility] 6720 (BEAKER) (test code = [facility], 1538) [address]: Systems Testing Laboratory Technician/Techni bart ID = [id number] for PH INISEE, ABDOULAYE OXYGEN SATURATION, [id number] 06:27:31 Test Item Value Reference Range Interpretation Comments O2 SATURATION (MEASURED) (BEAKER) 54.6 % (test code = 1455) HEPATIC FUNCTION [id number] 04:48:25 Test Item Value Reference Range Interpretation [...] Specimen moderately (test code = 347) hemolyzed Systems Testing Laboratory Technician ID - KEARA [id number] 04:48:24 Test Item Value Reference Range Interpretation Comments PHOSPHORUS (BEAKER) 2.8 mg/dL 2.3-4.7 Specimen moderately (test code = 604) hemolyzed Systems Testing Laboratory Technician ID - KEARA WBASIC METABOLIC [id number] 04:48:24 Test Item Value Reference Range Interpretation [...] S NOT APPLICABLE FOR DIALYSIS PATIEN TS. Systems Testing Laboratory Technician ID Patrick SARAH [id number] 04:48:23 Test Item Value Reference Range Interpretation Comments MAGNESIUM (BEAKER) 2.1 mg/dL 1.6-2.6 Specimen moderately (test code = 627) hemolyzed Systems Testing Laboratory Technician ID - KEARA WPT/[id number] 04:45:21 Test Item Value Reference Range Interpretation [...] mechanical heart valves.CBC W/PLT COUNT & AUTO [id number] 04:41:38 Test Item Value Reference Range Interpretation [...] (BEAKER) (test code = 2801) LACTIC ACID, [id number] 04:32:15 Test Item Value Reference Range Interpretation Comments LACTATE BLOOD 1.0 mmol/L 0.5-2.2 Specimen moder ately ARTERIAL (2) (BEAKER) hemoly zed (test code = 2874) Systems Testing Laboratory Technician ID - KEARA WCALCIUM, [id number] 04:12:20 Test Item Value Reference Range Interpretation Comments CALCIUM IONIZED (BEAKER) (test 1.08 mmol/L 1.12-1.27 L code = 698) PH, BLOOD (BEAKER) (test code = 7.51 1810) BLOOD GAS, [id number] 04:12:14 Test Item Value Reference Range Interpretation [...] (test code = 1819) 21.0 OXYGEN SATURATION, [id number] 04:12:09 Test Item Value Reference Range Interpretation Comments O2 SATURATION (MEASURED) (BEAKER) 57.4 % (test code = 1455) RAD, CHEST, 1 VIEW, NON [id number] 03:17:00while patient is intubated or has chest tubes.Reason for exam:->Status post CV SurgeryShould thisbe performed at the bedside?->Yes [facility] IS[facility]AL : 1945 Sex: MFINAL [...] by: Emir BARRIOS 09/11/2021 03:17 AMBASIC METABOLIC [id number] 22:33:36 Test Item Value Reference Range Interpretation [...] S NOT APPLICABLE FOR DIALYSIS PATIEN TS. Systems Testing Laboratory Technician ID - [id number] 22:33:35 Test Item Value Reference Range Interpretation Comments MAGNESIUM (BEAKER) 2.5 mg/dL 1.6-2.6 Specimen slightly (test code = 627) hemolyzed Systems Testing Laboratory Technician ID - DBPOCT-GLUCOSE [id number] 22:18:05 Test Item Value Reference Range Interpretation Comments POC-GLUCOSE METER 113 mg/dL 70-110 H : TESTED A T [facility] 67[facility] (BEAKER) (test code = [place], 1538) [id number]: Systems Testing Laboratory Technician/Techni bart ID = [id number] for DO MINGUEZ, ERASMO HEMOGLOBIN AND [id number] 22:16:52 Test Item Value Reference Range Interpretation Comments HEMOGLOBIN (BEAKER) (test code = 8.3 GM/DL 13.7-17.5 L 410) HEMATOCRIT (BEAKER) (test code = 25.3 % 40.1-51.0 L 411) [facility] Testing Laboratory Technician ID - [id number] [id number] 17:01:08 Test Item Value Reference Range Interpretation Comments POC-GLUCOSE METER 116 mg/dL 70-110 H : TESTED A T [facility] 67[facility] (BEAKER) (test code = [place], 1538) [id number]: Systems Testing Laboratory Technician/Techni bart ID = [id number] for SERAFIN ATWOOD 2D Echo W/Doppler(CW/PW/Color)2021-09-10 16:05:16Ejection FractionSLEH ECHO [facility] Echo W/Doppler(CW/PW/Color)2021-09-10 16:05:16Ejection [facility]LEH [facility] W/Doppler(CW/PW/Color) 2021-09-10 16:05:16[facility], [id number] 15:40:36 Test Item Value Reference Range Interpretation Comments O2 SATURATION (MEASURED) (BEAKER) 79.1 % (test code = 1455) [id number] 13:24:14 Test Item Value Reference Range Interpretation Comments MAGNESIUM (BEAKER) (test code = 2.2 mg/dL 1.6-2.6 627) [facility] Testing Laboratory Technician ID - PIAYA LBASIC METABOLIC [id number] 13:24:13 Test Item Value Reference Range Interpretation [...] S NOT APPLICABLE FOR DIALYSIS PATIEN TS. Systems Testing Laboratory Technician ID - PIAYA LCALCIUM, [id number] 13:05:15 Test Item Value Reference Range Interpretation Comments CALCIUM IONIZED (BEAKER) (test 1.06 mmol/L 1.12-1.27 L code = 698) PH, BLOOD (BEAKER) (test code = 7.52 1810) POCT-GLUCOSE [id number] 11:27:00 Test Item Value Reference Range Interpretation Comments POC-GLUCOSE METER 138 mg/dL 70-110 H : TESTED A T [facility] 6720 (BEAKER) (test code = [facility] Social IQ (Social Influence Quotient) [facility], 1538) [id number]: Systems Testing Laboratory Technician/Techni bart ID = [id number] for GERRI KEE BETANCOURT POCT-GLUCOSE [id number] 07:54:29 Test Item Value Reference Range Interpretation Comments POC-GLUCOSE METER 133 mg/dL 70-110 H : TESTED A T [facility] 6720 (BEAKER) (test code = [facility], 1538) [address]: Systems Testing Laboratory Technician/Techni bart ID = [id number] for SERAFIN ATWOOD HEPATIC FUNCTION [id number] 05:39:39 Test Item Value Reference Range Interpretation [...] (test code = 44 U/L 6-55 347) Systems Testing Laboratory Technician ID - PIMARIELA [id number] 05:39:38 Test Item Value Reference Range Interpretation Comments PHOSPHORUS (BEAKER) (test code = 2.9 mg/dL 2.3-4.7 604) Systems Testing Laboratory Technician ID - ZACMARIELA LBASIC METABOLIC [id number] 05:39:37 Test Item Value Reference Range Interpretation [...] S NOT APPLICABLE FOR DIALYSIS PATIEN TS. Systems Testing Laboratory Technician ID - ZACMARIELA [id number] 05:39:37 Test Item Value Reference Range Interpretation Comments MAGNESIUM (BEAKER) (test code = 2.2 mg/dL 1.6-2.6 627) Systems Testing Laboratory Technician ID - ZACMARIELA LLACTIC ACID, [id number] 05:27:27 Test Item Value Reference Range Interpretation Comments LACTATE BLOOD 0.9 mmol/L 0.5-2.2 Specimen sligh tly ARTERIAL (2) (BEAKER) hemoly zed (test code = 2874) Systems Testing Laboratory Technician ID - ZACMARIELA LPT/[id number] 05:14:24 Test Item Value Reference Range Interpretation [...] for patients with mechanical heart valves.OXYGEN SATURATION, [id number] 05:07:37 Test Item Value Reference Range Interpretation Comments O2 SATURATION (MEASURED) (BEAKER) 77.5 % (test code = 1455) CBC W/PLT COUNT & AUTO [id number] 05:07:13 Test Item Value Reference Range Interpretation [...] = 2801) RAD, CHEST, 1 VIEW, NON [id number] 05:07:00while patient is intubated or has chest tubes.Reason for exam:->Status post CV SurgeryShould thisbe performed at the bedside?->Yes [facility] 1945 Sex: MFINAL REPORT RAD, CHEST, 1 VIEW, NON DEPT INDICATION: Status post CV Surgery COMPARISON: Prior day's exam FINDINGS: Portable frontal view of the chest. IMPRESSION: Support Lines: Stable. Lungs and pleura: Unchanged bibasilar airspace and pleural opacities. No pneumothorax. Heart and mediastinum: Stable contours. Additional findings: None. Signed: Abran, Halley MDReport Verified Date /Time: 09/10/2021 05:07:16 CALCIUM, [id number] 05:03:15 Test Item Value Reference Range Interpretation Comments CALCIUM IONIZED (BEAKER) (test 1.08 mmol/L 1.12-1.27 L code = 698) PH, BLOOD (BEAKER) (test code = 7.51 1810) BLOOD GAS, [id number] 05:00:52 Test Item Value Reference Range Interpretation [...] (BEAKER) (test code = 1819) 21.0 POCT-GLUCOSE [id number] 22:18:19 Test Item Value Reference Range Interpretation Comments POC-GLUCOSE METER 157 mg/dL 70-110 H : TESTED A T [facility] 6720 (BEAKER) (test code = [place], 1538) [address]: Systems Testing Laboratory Technician/Techni bart ID = [id number] for VISHAL GAINES CALCIUM, [id number] 20:12:13 Test Item Value Reference Range Interpretation Comments CALCIUM IONIZED (BEAKER) (test 1.11 mmol/L 1.12-1.27 L code = 698) PH, BLOOD (BEAKER) (test code = 7.47 1810) OXYGEN SATURATION, [id number] 20:12:01 Test Item Value Reference Range Interpretation Comments O2 SATURATION (MEASURED) (BEAKER) 78.0 % (test code = 1455) LACTIC ACID, [id number] 20:12:01 Test Item Value Reference Range Interpretation Comments LACTATE BLOOD 1.4 mmol/L 0.5-2.2 Specimen sligh tly ARTERIAL (2) (BEAKER) hemoly zed (test code = 2874) Systems Testing Laboratory Technician ID - [id number] 20:09:04 Test Item Value Reference Range Interpretation Comments PHOSPHORUS (BEAKER) 2.7 mg/dL 2.3-4.7 Specimen slightly (test code = 604) hemolyzed Systems Testing Laboratory Technician ID - DBBASIC METABOLIC [id number] 20:09:04 Test Item Value Reference Range Interpretation [...] S NOT APPLICABLE FOR DIALYSIS PATIEN TS. Systems Testing Laboratory Technician ID - [id number] 20:09:03 Test Item Value Reference Range Interpretation Comments MAGNESIUM (BEAKER) 2.1 mg/dL 1.6-2.6 Specimen slightly (test code = 627) hemolyzed Systems Testing Laboratory Technician ID - DBHEMOGLOBIN AND [id number] 19:51:19 Test Item Value Reference Range Interpretation Comments HEMOGLOBIN (BEAKER) (test code = 8.3 GM/DL 13.7-17.5 L 410) HEMATOCRIT (BEAKER) (test code = 25.6 % 40.1-51.0 L 411) Systems Testing Laboratory Technician ID - [id number] SATURATION, [id number] 09:51:00 Test Item Value Reference Range Interpretation Comments O2 SATURATION (MEASURED) (BEAKER) 67.0 % (test code = 1455) RAD, CHEST, 1 VIEW, NON [id number] 06:36:00while patient is intubated or has chest tubes.Reason for exam:->Status post CV SurgeryShould thisbe performed at the bedside?->Yes [facility] 1945 Sex: MFINAL REPORT RAD, CHEST, 1 VIEW, NON DEPT INDICATION: Status post CV Surgery COMPARISON: Prior day's exam FINDINGS: Portable frontal view of the chest. IMPRESSION: Support Lines: Right chest tube. [place] tip overlies the pulmonary outflow tract. Lungs and pleura: Retrocardiac opacity representing singly or in combination airspace disease, atelectasis and/or effusion. Bibasilar interstitial thickening is unchanged. No significant pneumothorax. Heart and mediastinum: Stable contours. Stable surgical changes. Additional findings: None. Signed: Gaby Corderoeport Verified Date/Time: 09/09/2021 06:36:02 OXYGEN SATURATION, [id number] 05:12:23 Test Item Value Reference Range Interpretation Comments O2 SATURATION (MEASURED) (BEAKER) 98.5 % (test code = 1455) [id number] 03:20:36 Test Item Value Reference Range Interpretation Comments PHOSPHORUS (BEAKER) (test code = 2.6 mg/dL 2.3-4.7 604) Systems Testing Laboratory Technician ID - MARZENA [id number] 03:20:35 Test Item Value Reference Range Interpretation Comments MAGNESIUM (BEAKER) (test code = 2.1 mg/dL 1.6-2.6 627) Systems Testing Laboratory Technician ID Patrick IVAN MCOMPREHENSIVE METABOLIC [id number] 03:20:34 Test Item Value Reference Range Interpretation [...] S NOT APPLICABLE FOR DIALYSIS PATIEN TS. Systems Testing Laboratory Technician ID - MARZENA MPOCT-GLUCOSE [id number] 03:04:55 Test Item Value Reference Range Interpretation Comments POC-GLUCOSE METER 143 mg/dL 70-110 H : TESTED A T [facility] 6720 (BEAKER) (test code = [facility] [place] [place], 1538) [address]: Systems Testing Laboratory Technician/Techni bart ID = [id number] for Cathleen Acuña BLOOD GAS, [id number] 02:57:44 Test Item Value Reference Range Interpretation [...] See_Comment H [A utomated message] The system [employer] generated this result transmitted ref erence range: 3.5 - 10 .5 K/L. The refe rence range was not u sed to interpret this result as normal/abnor mal. RBC (test code = 789-8) 3.05 See_Comment L [Au tomated message] The system [employer] generated this result transmitted ref erence range: 4.63 - 6 .08 M/L. The refe rence range was not u sed to interpret this result as normal/abnor mal. MCHC (test code = 786-4) 31.7 See_Comment L [A utomated message] The system [employer] generated this result transmitted ref erence range: [...] See_Comment [Aut omated message] 777-3) The system [employer] generated this result transmitted ref erence range: 150 - 45 0 K/CU MM. The referen ce range was not u sed to interpret this result as normal/abnor mal. MPV (test code = 10.7 fL 9.4-12.4 15825-7) nRBC (test code = 413) 0 See_Comment [Aut omated message] The system [employer] generated this result transmitted ref erence range: 0 - 0 /1 00 WBC. The refere nce range was not u sed to interpret this result as normal/abnor mal. Lab Interpretation (test Abnormal code = 97625-2) [facility] 02:57:29 Test Item Value Reference Range Interpretation Comments WBC (test code = 6690-2) 14.5 See_Comment H [A utomated message] The system [employer] generated this result transmitted ref erence range: 3.5 - 10 .5 K/L. The refe rence range was not u sed to interpret this result as normal/abnor mal. RBC (test code = 789-8) 3.05 See_Comment L [Au tomated message] The system [employer] generated this result transmitted ref erence range: 4.63 - 6 .08 M/L. The refe rence range was not u sed to interpret this result as normal/abnor mal. MCHC (test code = 786-4) 31.7 See_Comment L [A utomated message] The system [employer] generated this result transmitted ref erence range: [...] See_Comment [Aut omated message] 777-3) The system [employer] generated this result transmitted ref erence range: 150 - 45 0 K/CU MM. The referen ce range was not u sed to interpret this result as normal/abnor mal. MPV (test code = 10.7 fL 9.4-12.4 37271-9) nRBC (test code = 413) 0 See_Comment [Aut omated message] The system [employer] generated this result transmitted ref erence range: 0 - 0 /1 00 WBC. The refere nce range was not u sed to interpret this result as normal/abnor mal. Lab Interpretation (test Abnormal code = 82446-3) [facility] 02:57:29 Test Item Value Reference Range Interpretation Comments WBC (test code = 6690-2) 14.5 See_Comment H [A utomated message] The system [employer] generated this result transmitted ref erence range: 3.5 - 10 .5 K/L. The refe rence range was not u sed to interpret this result as normal/abnor mal. RBC (test code = 789-8) 3.05 See_Comment L [Au tomated message] The system [employer] generated this result transmitted ref erence range: 4.63 - 6 .08 M/L. The refe rence range was not u sed to interpret this result as normal/abnor mal. MCHC (test code = 786-4) 31.7 See_Comment L [A utomated message] The system [employer] generated this result transmitted ref erence range: [...] See_Comment [Aut omated message] 777-3) The system [employer] generated this result transmitted ref erence range: 150 - 45 0 K/CU MM. The referen ce range was not u sed to interpret this result as normal/abnor mal. MPV (test code = 10.7 fL 9.4-12.4 25592-5) nRBC (test code = 413) 0 See_Comment [Aut omated message] The system [employer] generated this result transmitted ref erence range: 0 - 0 /1 00 WBC. The refere nce range was not u sed to interpret this result as normal/abnor mal. Lab Interpretation (test Abnormal code = 23333-9) [facility] (HEMOGRAM ONLY)2021-09-09 02:57:29 Test Item [...] 0-0 (BEAKER) (test code = 413) CALCIUM, [id number] 02:57:28 Test Item Value Reference Range Interpretation Comments CALCIUM IONIZED (BEAKER) (test 1.12 mmol/L 1.12-1.27 code = 698) PH, BLOOD (BEAKER) (test code = 7.46 1810) POCT-GLUCOSE [id number] 21:16:02 Test Item Value Reference Range Interpretation Comments POC-GLUCOSE METER 169 mg/dL 70-110 H : TESTED A T [facility] 6720 (BEAKER) (test code = [facility], 1538) [address]: Systems Testing Laboratory Technician/Techni bart ID = [id number] for Am rodrigo, Walker POCT-GLUCOSE [id number] 21:12:37 Test Item Value Reference Range Interpretation Comments POC-GLUCOSE METER 140 mg/dL 70-110 H : TESTED A T [facility] 6720 (BEAKER) (test code [facility], = 1538) [address]: Systems Testing Laboratory Technician/Techni bart ID = [id number] for SEAN REED (contract)NICHELLE 2D Echo W/Doppler(CW/PW/Color)2021-09-08 15:37:08Ejection FractionSLEH ECHO HEARTLAB [facility] W/Doppler(CW/PW/Color)2021-09-08 15:37:08Ejection FractionSLEH ECHO HEARTLAB [facility] W/Doppler(CW/PW/Color) 2021-09-08 15:37:08Ejection FractionSLEH ECHO HEARTLAB [facility]2022-[facility]-21 15:32:47 Test Item Value Reference Range Interpretation Comments POTASSIUM (BEAKER) 4.3 meq/L 3.5-5.1 Specimen slightly (test code = 379) hemolyzed Systems Testing Laboratory Technician ID - KAYLEEN [id number] 15:32:46 Test Item Value Reference Range Interpretation Comments MAGNESIUM (BEAKER) 2.0 mg/dL 1.6-2.6 Specimen slightly (test code = 627) hemolyzed Systems Testing Laboratory Technician ID - KAYLEEN LCBC W/PLT COUNT & AUTO [id number] 15:19:56 Test Item Value Reference Range Interpretation [...] PERCENT (BEAKER) (test code = 2801) CALCIUM, [id number] 15:12:46 Test Item Value Reference Range Interpretation Comments CALCIUM IONIZED (BEAKER) (test 1.11 mmol/L 1.12-1.27 L code = 698) PH, BLOOD (BEAKER) (test code = 7.48 1810) POCT-GLUCOSE [id number] 14:49:24 Test Item Value Reference Range Interpretation Comments POC-GLUCOSE METER 102 mg/dL 70-110 : TESTED A T [facility] 6720 (BEAKER) (test code [facility], = 1538) 19259: Systems Testing Laboratory Technician/Techni bart ID = [id number] for SEANAMA CHANDLERRut (contract), NICHELLE BUCIO POCT-GLUCOSE [id number] 10:32:59 Test Item Value Reference Range Interpretation Comments POC-GLUCOSE METER 104 mg/dL 70-110 : TESTED A T [facility] 6720 (BEAKER) (test code [facility], = 1538) 24059: Systems Testing Laboratory Technician/Techni bart ID = [id number] for SEANAMA CHANDLERA (contract), NICHELLE BUCIO HEMOGLOBIN AND [id number] 10:32:38 Test Item Value Reference Range Interpretation Comments HEMOGLOBIN (BEAKER) (test code = 7.7 GM/DL 13.7-17.5 L 410) HEMATOCRIT (BEAKER) (test code = 25.3 % 40.1-51.0 L 411) Systems Testing Laboratory Technician ID - 6000POCT-GLUCOSE [id number] 09:26:31 Test Item Value Reference Range Interpretation Comments POC-GLUCOSE METER 96 mg/dL 70-110 : TESTED A T [facility] 6720 (BEAKER) (test code = [facility], 1538) [address]14[address]: Systems Testing Laboratory Technician/Techni bart ID = [id number] for SEANAMA CHANDLERA (contract), NICHELLE BUCIO LACTIC ACID, [id number] 09:18:52 Test Item Value Reference Range Interpretation Comments LACTATE BLOOD ARTERIAL (2) 1.7 mmol/L 0.5-2.2 (BEAKER) (test code = 2874) Systems Testing Laboratory Technician ID - DBOXYGEN SATURATION, [id number] 09:17:35 Test Item Value Reference Range Interpretation Comments O2 SATURATION (MEASURED) (BEAKER) 60.3 % (test code = 1455) POCT-GLUCOSE [id number] 09:09:11 Test Item Value Reference Range Interpretation Comments POC-GLUCOSE METER 101 mg/dL 70-110 : TESTED A T [facility] 6720 (BEAKER) (test code [facility], = 1538) 52585: Systems Testing Laboratory Technician/Techni bart ID = [id number] for SEAN REED (contract)NICHELLE BLOOD GAS, [id number] 09:08:49 Test Item Value Reference Range Interpretation [...] = No growth in 5 days 6463-4) [facility] (Left Venipuncture)2021-09-08 08:00:53 Test Item Value Reference Range Interpretation Comments Result (test code = No growth in 5 days 6463-4) [facility] (Left Venipuncture)2021-09-08 08:00:53 Test Item Value Reference Range Interpretation Comments Result (test code = No growth in 5 days 6463-4) [facility] Hospital[facility]OD [id number] 08:00:53 Test Item Value Reference Range Interpretation Comments CULTURE (BEAKER) (test No growth in 5 days code = 1095) BLOOD [id number] 08:00:52 Test Item Value Reference Range Interpretation Comments CULTURE (BEAKER) (test No growth in 5 days code = 1095) [id number] 07:57:26 Test Item Value Reference Range Interpretation Comments Scan Result (test code = See scanned report [id number]) EMERSON (test code = EMERSON) See scanned report [facility]2022-[facility]-21 07:57:26 Test Item Value Reference Range Interpretation Comments Scan Result (test code = See scanned report [id number]) EMERSON (test code = EMERSON) See scanned report [facility]2022-01-21 07:57:26 Test Item Value Reference Range Interpretation Comments Scan Result (test code = See scanned report [id number]) EMERSON (test code = EMERSON) See scanned report [facility] [id number] 07:57:26 Test Item Value Reference Range Interpretation Comments SCAN RESULT (test code = See scanned report [id number]) See scanned reportLACTIC ACID, [id number] 06:32:27 Test Item Value Reference Range Interpretation Comments LACTATE BLOOD ARTERIAL (2) 3.0 mmol/L 0.5-2.2 H (BEAKER) (test code = 2874) Systems Testing Laboratory Technician ID - PIAYA LPOC ACTIVATED CLOTTING [id number] 06:31:19 Test Item Value Reference Range Interpretation Comments Activated Clotting Time 142 sec : 74 -137 seconds, (test code = 3184-9) Baselin e: TESTED AT [facility] 6720 [facility], 770 30: Systems Testing Laboratory Technician/Techni bart ID = [id number] for Sa enz, Angela [facility] ACTIVATED CLOTTING [id number] 06:31:19 Test Item Value Reference Range Interpretation Comments Activated Clotting Time 142 sec : 74 -137 seconds, (test code = 441) Baseline: TESTED AT [facility] 67[address] [facility], 770 30: Systems Testing Laboratory Technician/Techni bart ID = [id number] for Sa enz, Angela [facility] ACTIVATED CLOTTING [id number] 06:31:19 Test Item Value Reference Range Interpretation Comments Activated Clotting Time 142 sec : 74 -137 seconds, (test code = 3184-9) Baselin e: TESTED AT [facility] 67[address] [facility], 770 30: Systems Testing Laboratory Technician/Techni bart ID = [id number] for Sa enz, Angela [facility] CenterCT-[id number] 06:31:19 Test Item Value Reference Range Interpretation Comments ACTIVATED CLOTTING TIME 142 sec : 74 -137 seconds, (BEAKER) (test code = Baseli ne: TESTED AT 441) [address], 770 30: Systems Testing Laboratory Technician/Techni bart ID = [id number] for Sa enz, Angela [id number] 06:31:17 Test Item Value Reference Range Interpretation Comments ACTIVATED CLOTTING TIME 785 sec : 74 -137 seconds, (BEAKER) (test code = Baseli ne: TESTED AT 441) [address], 770 30: Systems Testing Laboratory Technician/Techni bart ID = [id number] for Sa enz, Angela [id number] 06:31:17 Test Item Value Reference Range Interpretation Comments ACTIVATED CLOTTING TIME 964 sec : 74 -137 seconds, (BEAKER) (test code = Baseli ne: TESTED AT 441) [address], [facility] 30: Systems Testing Laboratory Technician/Techni bart ID = [id number] for Sa enz, Angela [id number] 06:31:16 Test Item Value Reference Range Interpretation Comments ACTIVATED CLOTTING TIME > sec : 74 -137 seconds, (BEAKER) (test code = Baseli ne: TESTED AT 441) [address], [facility] 30: Systems Testing Laboratory Technician/Techni bart ID = [id number] for Sa enz, Angela [id number] 06:31:15 Test Item Value Reference Range Interpretation Comments ACTIVATED CLOTTING TIME > sec : 74 -137 seconds, (BEAKER) (test code = Baseli ne: TESTED AT 441) [address], [facility] 30: Systems Testing Laboratory Technician/Techni bart ID = [id number] for Sa enz, Angela [id number] 06:31:14 Test Item Value Reference Range Interpretation Comments ACTIVATED CLOTTING TIME 708 sec : 74 -137 seconds, (BEAKER) (test code = Baseli ne: TESTED AT 441) [address], [facility] 30: Systems Testing Laboratory Technician/Techni bart ID = [id number] for Sa enz, Angela [id number] 06:31:13 Test Item Value Reference Range Interpretation Comments ACTIVATED CLOTTING TIME 154 sec : 74 -137 seconds, (BEAKER) (test code = Josei ne: TESTED AT 441) [facility] [address] [place] [address] [place], [address] 30: Systems Testing Laboratory Technician/Techni bart ID = [id number] for Angela [place] POCT-GLUCOSE [id number] 06:26:19 Test Item Value Reference Range Interpretation Comments POC-GLUCOSE METER 117 mg/dL 70-110 H : TESTED A T [facility] 6720 (BEAKER) (test code = [facility] [place], 1538) [address]: Systems Testing Laboratory Technician/Techni bart ID = [id number] for Jane Payne HGB/HCT (H&H)-Stat [id number] 06:21:12 Test Item Value Reference Range Interpretation Comments Hemoglobin (test code = 8.3 See_Comment L [Au tomated message] 786-4) The system [employer] generated this result transmitted ref erence range: 13.0 - 1 6.8 GM/DL. The refe rence range was not u sed to interpret this result as normal/abnor mal. Hematocrit (test code = 24.0 % 40.0-50.0 L 4544-3) Lab Interpretation (test Abnormal code = 09414-3) [facility] Hospital[facility]ucose-Stat [id number] 06:21:12 Test Item Value Reference Range Interpretation Comments Glucose (test code = 2345-7) 123 mg/dL 70-110 H Lab Interpretation (test code = Abnormal 20549-0) [facility] HospitalHGB/HCT (H&H)-Stat [id number] 06:21:12 Test Item Value Reference Range Interpretation Comments Hemoglobin (test code = 8.3 See_Comment L [Au tomated message] 786-4) The system [employer] generated this result transmitted ref erence range: 13.0 - 1 6.8 GM/DL. The refe rence range was not u sed to interpret this result as normal/abnor mal. Hematocrit (test code = 24.0 % 40.0-50.0 L 4544-3) Lab Interpretation (test Abnormal code = 80919-7) [facility] HospitalGlucose-Stat [id number] 06:21:12 Test Item Value Reference Range Interpretation Comments Glucose (test code = 2345-7) 123 mg/dL 70-110 H Lab Interpretation (test code = Abnormal 35834-1) [facility] HospitalHGB[facility]HCT (H&H)-Stat [id number] 06:21:12 Test Item Value Reference Range Interpretation Comments Hemoglobin (test code = 8.3 See_Comment L [Au tomated message] 786-4) The system [employer] generated this result transmitted ref erence range: 13.0 - 1 6.8 GM/DL. The refe rence range was not u sed to interpret this result as normal/abnor mal. Hematocrit (test code = 24.0 % 40.0-50.0 L 4544-3) Lab Interpretation (test Abnormal code = 86831-9) [facility] Hospital[facility]ucose-Stat [id number] 06:21:12 Test Item Value Reference Range Interpretation Comments Glucose (test code = 2345-7) 123 mg/dL 70-110 H Lab Interpretation (test code = Abnormal 42230-3) [facility] HospitalGLUCOSE-STAT [id number] 06:21:12 Test Item Value Reference Range Interpretation Comments GLUCOSE RANDOM (BEAKER) (test code 123 mg/dL 70-110 H = 652) HGB/HCT (H&H) - STAT [id number] 06:21:12 Test Item Value Reference Range Interpretation Comments HEMOGLOBIN (BEAKER) (test code = 8.3 GM/DL 13.0-16.8 L 410) HEMATOCRIT (BEAKER) (test code = 24.0 % 40.0-50.0 L 411) BLOOD GAS, [id number] 06:21:11 Test Item Value Reference Range Interpretation [...] (BEAKER) (test code = 1819) 40.0 Potassium-Stat [id number] 06:19:05 Test Item Value Reference Range Interpretation Comments Potassium (test code = 2823-3) 4.1 meq/L 3.6-5.5 Lab Interpretation (test code = Normal 88862-8) [facility]-Stat [id number] 06:19:05 Test Item Value Reference Range Interpretation Comments Potassium (test code = 2823-3) 4.1 meq/L 3.6-5.5 Lab Interpretation (test code = Normal 87103-1) [facility]assium-Stat [id number] 06:19:05 Test Item Value Reference Range Interpretation Comments Potassium (test code = 2823-3) 4.1 meq/L 3.6-5.5 Lab Interpretation (test code = Normal 17468-0) [facility] HospitalPOT[facility]SIUM-STAT [id number] 06:19:05 Test Item Value Reference Range Interpretation Comments POTASSIUM (BEAKER) (test code = 4.1 meq/L 3.6-5.5 379) Sodium Na-Stat [id number] 06:19:04 Test Item Value Reference Range Interpretation Comments Sodium (test code = 2951-2) 140 meq/L 136-145 Lab Interpretation (test code = Normal 68722-4) [facility] [id number] 06:19:04 Test Item Value Reference Range Interpretation Comments Sodium (test code = 2951-2) 140 meq/L 136-145 Lab Interpretation (test code = Normal 65795-2) [facility] [id number] 06:19:04 Test Item Value Reference Range Interpretation Comments Sodium (test code = 2951-2) 140 meq/L 136-145 Lab Interpretation (test code = Normal 66225-7) [facility] NA-STAT [id number] 06:19:04 Test Item Value Reference Range Interpretation Comments SODIUM (BEAKER) (test code = 381) 140 meq/L 136-145 POCT-GLUCOSE [id number] 06:03:00 Test Item Value Reference Range Interpretation Comments POC-GLUCOSE METER 117 mg/dL 70-110 H : TESTED A T [facility] 6720 (BEAKER) (test code = [place], 1538) [address]: Systems Testing Laboratory Technician/Techni bart ID = [id number] for Jane Payne POCT-GLUCOSE [id number] 04:27:30 Test Item Value Reference Range Interpretation Comments POC-GLUCOSE METER 131 mg/dL 70-110 H : TESTED A T [facility] 6720 (BEAKER) (test code = [place], 1538) [address]: Systems Testing Laboratory Technician/Techni bart ID = [id number] for Jane Payne HGB/HCT (H&H) - STAT [id number] 04:22:31 Test Item Value Reference Range Interpretation Comments HEMOGLOBIN (BEAKER) (test code = 8.5 GM/DL 13.0-16.8 L 410) HEMATOCRIT (BEAKER) (test code = 25.0 % 40.0-50.0 L 411) BLOOD GAS, [id number] 04:22:30 Test Item Value Reference Range Interpretation [...] (BEAKER) (test code = 1819) 40.0 GLUCOSE-STAT [id number] 04:22:30 Test Item Value Reference Range Interpretation Comments GLUCOSE RANDOM (BEAKER) (test code 145 mg/dL 70-110 H = 652) OXYGEN SATURATION, [id number] 04:22:06 Test Item Value Reference Range Interpretation Comments O2 SATURATION (MEASURED) (BEAKER) 70.0 % (test code = 1455) SODIUM NA-STAT [id number] 04:21:07 Test Item Value Reference Range Interpretation Comments SODIUM (BEAKER) (test code = 381) 138 meq/L 136-145 POTASSIUM-STAT [id number] 04:21:07 Test Item Value Reference Range Interpretation Comments POTASSIUM (BEAKER) (test code = 4.0 meq/L 3.6-5.5 379) RAD, CHEST, 1 VIEW, NON [id number] 04:06:00while patient is intubated or has chest tubes.Reason for exam:->Status post CV SurgeryShould thisbe performed at the bedside?->Yes [facility] : 1945 Sex: MFINAL REPORT RAD, CHEST, 1 VIEW, NON DEPT INDICATION: Status post CV Surgery COMPARISON: Prior day's exam FINDINGS: Portable frontal view of the chest. IMPRESSION: Support Lines: Slight repositioning of the right IJ Delbarton-Glen catheter tip overlying the main pulmonary artery. Lungs and pleura: Unchanged airspace and pleural opacities. No pneumothorax.Heart and mediastinum: Stable co ntours. Stable surgical changes.Additional findings: None. Signed: Rm Nassar Verified Date/Time: 09/08/2021 04:06:10 LACTIC ACID, [id number] 03:28:09 Test Item Value Reference Range Interpretation Comments LACTATE BLOOD ARTERIAL (2) 4.4 mmol/L 0.5-2.2 HH (BEAKER) (test code = 2874) Systems Testing Laboratory Technician ID - DBPOCT-GLUCOSE [id number] 03:20:20 Test Item Value Reference Range Interpretation Comments POC-GLUCOSE METER 127 mg/dL 70-110 H : [facility] (BEAKER) (test code = [place], 1538) [address]: Systems Testing Laboratory Technician/Techni bart ID = [id number] for Jane Payne CBC W/PLT COUNT & AUTO [id number] 03:14:20 Test Item Value Reference Range Interpretation [...] 0-1 PERCENT (BEAKER) (test code = 2801) [id number] 03:02:27 Test Item Value Reference Range Interpretation Comments PHOSPHORUS (BEAKER) (test code = 2.5 mg/dL 2.3-4.7 604) Systems Testing Laboratory Technician ID - [id number] 03:02:26 Test Item Value Reference Range Interpretation Comments MAGNESIUM (BEAKER) (test code = 2.3 mg/dL 1.6-2.6 627) Systems Testing Laboratory Technician ID - DBCOMPREHENSIVE METABOLIC [id number] 03:02:25 Test Item Value Reference Range Interpretation [...] S NOT APPLICABLE FOR DIALYSIS PATIEN TS. Systems Testing Laboratory Technician ID - DBCALCIUM, [id number] 02:42:47 Test Item Value Reference Range Interpretation Comments CALCIUM IONIZED (BEAKER) (test 1.09 mmol/L 1.12-1.27 L code = 698) PH, BLOOD (BEAKER) (test code = 7.51 1810) GLUCOSE-STAT [id number] 02:42:45 Test Item Value Reference Range Interpretation Comments GLUCOSE RANDOM (BEAKER) (test code 162 mg/dL 70-110 H = 652) HGB/HCT (H&H) - STAT [id number] 02:42:45 Test Item Value Reference Range Interpretation Comments HEMOGLOBIN (BEAKER) (test code = 8.3 GM/DL 13.0-16.8 L 410) HEMATOCRIT (BEAKER) (test code = 24.0 % 40.0-50.0 L 411) BLOOD GAS, [id number] 02:42:44 Test Item Value Reference Range Interpretation [...] (test code = 1819) 40.0 SODIUM NA-STAT [id number] 02:39:19 Test Item Value Reference Range Interpretation Comments SODIUM (BEAKER) (test code = 381) 138 meq/L 136-145 POTASSIUM-STAT [id number] 02:39:19 Test Item Value Reference Range Interpretation Comments POTASSIUM (BEAKER) (test code = 3.8 meq/L 3.6-5.5 379) POCT-GLUCOSE [id number] 02:22:45 Test Item Value Reference Range Interpretation Comments POC-GLUCOSE METER 148 mg/dL 70-110 H : TESTED A T [facility] 6720 (BEAKER) (test code = [facility], 1538) [address]: Systems Testing Laboratory Technician/Techni bart ID = [id number] for La nate, Jane OXYGEN SATURATION, [id number] 01:24:13 Test Item Value Reference Range Interpretation Comments O2 SATURATION (MEASURED) (BEAKER) 71.6 % (test code = 1455) POCT-GLUCOSE [id number] 01:14:53 Test Item Value Reference Range Interpretation Comments POC-GLUCOSE METER 159 mg/dL 70-110 H : TESTED A T [facility] 6720 (BEAKER) (test code = [facility] Social IQ (Social Influence Quotient) [facility], 1538) [address]: Systems Testing Laboratory Technician/Techni bart ID = [id number] for La nate, Jane POCT-GLUCOSE [id number] 00:12:10 Test Item Value Reference Range Interpretation Comments POC-GLUCOSE METER 170 mg/dL 70-110 H : TESTED A T [facility] 6720 (BEAKER) (test code = [facility] Social IQ (Social Influence Quotient) [facility], 1538) 88365: Systems Testing Laboratory Technician/Techni bart ID = [id number] for La nate, Jane HGB/HCT (H&H) - STAT [id number] 00:01:07 Test Item Value Reference Range Interpretation Comments HEMOGLOBIN (BEAKER) (test code = 8.6 GM/DL 13.0-16.8 L 410) HEMATOCRIT (BEAKER) (test code = 25.0 % 40.0-50.0 L 411) BLOOD GAS, [id number] 00:01:06 Test Item Value Reference Range Interpretation [...] (BEAKER) (test code = 1819) 40.0 GLUCOSE-STAT [id number] 00:01:06 Test Item Value Reference Range Interpretation Comments GLUCOSE RANDOM (BEAKER) (test code 185 mg/dL 70-110 H = 652) POTASSIUM-STAT [id number] 00:00:02 Test Item Value Reference Range Interpretation Comments POTASSIUM (BEAKER) (test code = 4.0 meq/L 3.6-5.5 379) SODIUM NA-STAT [id number] 00:00:01 Test Item Value Reference Range Interpretation Comments SODIUM (BEAKER) (test code = 381) 138 meq/L 136-145 POCT-GLUCOSE [id number] 23:16:14 Test Item Value Reference Range Interpretation Comments POC-GLUCOSE METER 169 mg/dL 70-110 H : TESTED A T [facility] 6720 (BEAKER) (test code = [facility] Social IQ (Social Influence Quotient) [facility], 153) 258[address]: Systems Testing Laboratory Technician/Techni bart ID = [id number] for La nate, Jane POCT-GLUCOSE [id number] 22:48:00 Test Item Value Reference Range Interpretation Comments POC-GLUCOSE METER 186 mg/dL 70-110 H : TESTED A T [facility] 6720 (BEAKER) (test code = [facility] Social IQ (Social Influence Quotient) [facility], 153) 10856: Systems Testing Laboratory Technician/Techni bart ID = [id number] for La nate, Jane LACTIC ACID, [id number] 22:32:03 Test Item Value Reference Range Interpretation Comments LACTATE BLOOD ARTERIAL (2) 7.7 mmol/L 0.5-2.2 HH (BEAKER) (test code = 2874) Systems Testing Laboratory Technician ID - DBSpecimen slightly [id number] 22:20:51 Test Item Value Reference Range Interpretation Comments PARTIAL THROMBOPLASTIN TIME 50.9 seconds 22.5-36.0 H (BEAKER) (test code = 760) POCT-GLUCOSE [id number] 22:10:53 Test Item Value Reference Range Interpretation Comments POC-GLUCOSE METER 203 mg/dL 70-110 H : TESTED A T [facility] 6720 (BEAKER) (test code = [place], 1538) [address]: Systems Testing Laboratory Technician/Techni bart ID = [id number] for Jane Payne HGB/HCT (H&H) - STAT [id number] 22:10:05 Test Item Value Reference Range Interpretation Comments HEMOGLOBIN (BEAKER) (test code = 8.4 GM/DL 13.0-16.8 L 410) HEMATOCRIT (BEAKER) (test code = 25.0 % 40.0-50.0 L 411) GLUCOSE-STAT [id number] 22:10:04 Test Item Value Reference Range Interpretation Comments GLUCOSE RANDOM (BEAKER) (test code 203 mg/dL 70-110 H = 652) BLOOD GAS, [id number] 22:10:03 Test Item Value Reference Range Interpretation [...] (test code = 1819) 40.0 SODIUM NA-STAT [id number] 22:09:47 Test Item Value Reference Range Interpretation Comments SODIUM (BEAKER) (test code = 381) 140 meq/L 136-145 POTASSIUM-STAT [id number] 22:09:47 Test Item Value Reference Range Interpretation Comments POTASSIUM (BEAKER) (test code = 3.8 meq/L 3.6-5.5 379) BASIC METABOLIC [id number] 21:03:11 Test Item Value Reference Range Interpretation [...] S NOT APPLICABLE FOR DIALYSIS PATIEN TS. Systems Testing Laboratory Technician ID - MARZENA MHGB/HCT (H&H) - STAT [id number] 20:56:34 Test Item Value Reference Range Interpretation Comments HEMOGLOBIN (BEAKER) (test code = 9.2 GM/DL 13.0-16.8 L 410) HEMATOCRIT (BEAKER) (test code = 27.0 % 40.0-50.0 L 411) GLUCOSE-STAT [id number] 20:56:33 Test Item Value Reference Range Interpretation Comments GLUCOSE RANDOM (BEAKER) (test code 216 mg/dL 70-110 H = 652) BLOOD GAS, [id number] 20:56:32 Test Item Value Reference Range Interpretation [...] (BEAKER) (test code = 1819) 40.0 POTASSIUM-STAT [id number] 20:55:37 Test Item Value Reference Range Interpretation Comments POTASSIUM (BEAKER) (test code = 3.9 meq/L 3.6-5.5 379) SODIUM NA-STAT [id number] 20:55:36 Test Item Value Reference Range Interpretation Comments SODIUM (BEAKER) (test code = 381) 138 meq/L 136-145 LACTIC ACID, [id number] 19:32:31 Test Item Value Reference Range Interpretation Comments LACTATE BLOOD ARTERIAL (2) 9.1 mmol/L 0.5-2.2 HH (BEAKER) (test code = 2874) Systems Testing Laboratory Technician ID - MARZENA [facility] (HEMOGRAM ONLY)2021-09-07 19:15:57 Test Item Value Reference [...] (BEAKER) (test code = 413) BLOOD GAS, [id number] 19:14:26 Test Item Value Reference Range Interpretation [...] (test code = 1819) 60.0 OXYGEN SATURATION, [id number] 19:14:15 Test Item Value Reference Range Interpretation Comments O2 SATURATION (MEASURED) (BEAKER) 72.3 % (test code = 1455) POCT-GLUCOSE [id number] 18:29:54 Test Item Value Reference Range Interpretation Comments POC-GLUCOSE METER 170 mg/dL 70-110 H : TESTED A T [facility] 6720 (BEAKER) (test code = [place], 1538) [address]: Systems Testing Laboratory Technician/Techni bart ID = [id number] for CO ONCE, SHELLEY CT, CTA, [id number] 17:57:00Unlisted Reason for Exam - Click Yes and Enter Reason Below->YesUnlisted Reason for Exam->Pre op evaluation of aorta, assessment prior to cardiac surgery. need to see distance of aorta from chest wall and calcification of aorta [facility] : 1945 Sex: MAddendum [...] MDReport Verified Date/Time: 09/07/2021 17:57:58 [facility] Radiology Reading RoomAddendum EndsFINAL REPORT CTA [...] aorta. There is no acute aortic pathology. Business Services Director dimensions of the thoracic aorta are as [...] size of the lesion. Signed: Bhargav Humphreys [facility] Verified Date/Time: 0:03:27 CT, CTA [id number] 17:57:00Unlisted Reason for Exam - Click Yes and Enter Reason Below->YesUnlisted Reason for Exam->Evaluate descending aorta for calcification down to femoral vessels, prior to cannulation of femoral artery and vein for cardiac surgery. [facility]ENTER[facility] : 1945 [...] MDReport Verified Date/Time: 09/07/2021 17:57:58 Reading Location: [facility] Radiology Reading RoomAddendum EndsFINAL REPORT CTA [...] aorta. There is no acute aortic pathology. Business Services Director dimensions of the thoracic aorta are as [...] Humphreys MDReport Verified Date/Time: 0:03:27 LACTIC ACID, [id number] 17:36:22 Test Item Value Reference Range Interpretation Comments LACTATE BLOOD 8.2 mmol/L 0.5-2.2 HH Specimen sligh tly ARTERIAL (2) (BEAKER) hemoly zed (test code = 2874) Systems Testing Laboratory Technician ID - MARZENA MHGB/HCT (H&H) - STAT [id number] 17:15:52 Test Item Value Reference Range Interpretation Comments HEMOGLOBIN (BEAKER) (test code = 8.7 GM/DL 13.0-16.8 L 410) HEMATOCRIT (BEAKER) (test code = 26.0 % 40.0-50.0 L 411) GLUCOSE-STAT [id number] 17:15:51 Test Item Value Reference Range Interpretation Comments GLUCOSE RANDOM (BEAKER) (test code 179 mg/dL 70-110 H = 652) BLOOD GAS, [id number] 17:15:50 Test Item Value Reference Range Interpretation [...] (BEAKER) (test code = 1819) 40.0 POTASSIUM-STAT [id number] 17:15:06 Test Item Value Reference Range Interpretation Comments POTASSIUM (BEAKER) (test code = 3.6 meq/L 3.6-5.5 379) SODIUM NA-STAT [id number] 17:15:05 Test Item Value Reference Range Interpretation Comments SODIUM (BEAKER) (test code = 381) 138 meq/L 136-145 LACTIC ACID, [id number] 15:47:03 Test Item Value Reference Range Interpretation Comments LACTATE BLOOD 5.7 mmol/L 0.5-2.2 HH Specimen moder ately ARTERIAL (2) (BEAKER) hemoly zed (test code = 2874) Systems Testing Laboratory Technician ID - MARZENA MBASIC METABOLIC [id number] 15:45:08 Test Item Value Reference Range Interpretation [...] S NOT APPLICABLE FOR DIALYSIS PATIEN TS. Systems Testing Laboratory Technician ID - MARZENA [id number] 15:45:07 Test Item Value Reference Range Interpretation Comments PHOSPHORUS (BEAKER) 3.1 mg/dL 2.3-4.7 Specimen slightly (test code = 604) hemolyzed Systems Testing Laboratory Technician ID - MARZENA [id number] 15:45:06 Test Item Value Reference Range Interpretation Comments MAGNESIUM (BEAKER) 2.9 mg/dL 1.6-2.6 H Specimen slightly (test code = 627) hemolyzed Systems Testing Laboratory Technician ID - MARZENA MCBC W/PLT COUNT & AUTO [id number] 15:40:58 Test Item Value Reference Range Interpretation [...] 0-1 PERCENT (BEAKER) (test code = 2801) [id number] 15:37:40 Test Item Value Reference Range Interpretation [...] is 2.5-3.5 for patients with mechanical heart valves.[id number] 15:37:05 Test Item Value Reference Range Interpretation Comments Fibrinogen (test code = 3255-7) 466 mg/dl 225-434 H Lab Interpretation (test code = Abnormal 10170-4) [facility] 15:37:05 Test Item Value Reference Range Interpretation Comments Fibrinogen (test code = 3255-7) 466 mg/dl 225-434 H Lab Interpretation (test code = Abnormal 86584-4) [facility] 15:37:05 Test Item Value Reference Range Interpretation Comments Fibrinogen (test code = 3255-7) 466 mg/dl 225-434 H Lab Interpretation (test code = Abnormal 67844-4) [facility] 15:37:05 Test Item Value Reference Range Interpretation Comments FIBRINOGEN LEVEL (BEAKER) (test 466 mg/dl 225-434 H code = 658) PROTHROMBIN [id number] 15:36:48 Test Item Value Reference Range Interpretation Comments PROTIME (BEAKER) 18.7 seconds 11.9-14.2 H (test code = 759) INR (BEAKER) (test 1.58 See_Comment [Automat ed message] code = 370) The system [employer] generated this result transmitted ref erence range: <=5.90. The reference range was not used to int erpret this result as normal/abnormal . RECOMMENDED COUMADIN/WARFARIN INR THERAPY RANGESSTANDARD DOSE: 2.0 - 3.0 Includes: PROPHYLAXIS for venous thrombosis, systemic embolization; TREATMENT for venous thrombosis and/or pulmonary embolus.HIGH RISK: Target INR is 2.5-3.5 for patients with mechanical heart valves.BLOOD GAS, [id number] 15:31:17 Test Item Value Reference Range Interpretation [...] (test code = 1819) 60.0 OXYGEN SATURATION, [id number] 15:30:38 Test Item Value Reference Range Interpretation Comments O2 SATURATION (MEASURED) (BEAKER) 66.2 % (test code = 1455) RAD, CHEST, 1 VIEW, NON [id number] 15:30:00Reason for exam:->Status post CV Surgery post op day 0Should this be performed at the bedside?->Yes [facility] : 1945 Sex: MFINAL REPORT Chest dated 09/07/2021 COMPARISON: September 05, 2021 Clinical Information: Status post CV Surgery post op day 0 Comment: Heart is enlarged. Pulmonary vasculature is indistinct. Airspace disease is seen bilaterally suggestive of pulmonary edema. Endotracheal tube, nasogastric tube, Delbarton-Glen catheter, and right chest tube are present. No pneumothorax is seen. Signed: Halley Khan Verified Date/Time: 09/07/2021 15:30:25 Reading Location: [facility] Radiology Reading Room Prepare [id number] 14:47:00 Test Item Value Reference Range Interpretation Comments CROSSMATCH (test code = COMPATIBLE 2264) Unit ABO (test code = A Pos 8624623) UNIT NUMBER (test code = [id number] 934-0) Status (test code = RETURNED FROM ISSUE 2005277) Blood Bank Product (test RED BLOOD CELLS code = 2263) PRODUCT CODE (test code = E2163P18 933-2) [facility] [id number] 14:47:00 Test Item Value Reference Range Interpretation Comments Unit ABO (test code = A Pos 4122382) UNIT NUMBER (test code = [id number] 934-0) Status (test code = RETURNED FROM ISSUE 6703038) Blood Bank Product (test FFP code = 2263) PRODUCT CODE (test code = W1432I75 933-2) [facility] [id number] 14:47:00 Test Item Value Reference Range Interpretation Comments CROSSMATCH (test code = COMPATIBLE 2264) Unit ABO (test code = A Pos 9068872) UNIT NUMBER (test code = [id number] 934-0) Status (test code = RETURNED FROM ISSUE 8565064) Blood Bank Product (test RED BLOOD CELLS code = 2263) PRODUCT CODE (test code = [id number] 933-2) [facility] [id number] 14:47:00 Test Item Value Reference Range Interpretation Comments Unit ABO (test code = A Pos 7419552) UNIT NUMBER (test code = [id number] 934-0) Status (test code = RETURNED FROM ISSUE 9860483) Blood Bank Product (test FFP code = 2263) PRODUCT CODE (test code = [id number] 933-2) [facility] [id number] 14:47:00 Test Item Value Reference Range Interpretation Comments CROSSMATCH (test code = COMPATIBLE 2264) Unit ABO (test code = A Pos 9754866) UNIT NUMBER (test code = [id number] 934-0) Status (test code = RETURNED FROM ISSUE 3058090) Blood Bank Product (test RED BLOOD CELLS code = 2263) PRODUCT CODE (test code = [id number] 933-2) [facility] [id number] 14:47:00 Test Item Value Reference Range Interpretation Comments Unit ABO (test code = A Pos 8865268) UNIT NUMBER (test code = [id number] 934-0) Status (test code = RETURNED FROM ISSUE 7330456) Blood Bank Product (test FFP code = 2263) PRODUCT CODE (test code = G9190V24 933-2) [facility] 14:14:33 Test Item Value Reference Range Interpretation Comments PHOSPHORUS (BEAKER) (test code = 3.5 mg/dL 2.3-4.7 604) Systems Testing Laboratory Technician ID - BSCBC W/PLT COUNT & AUTO [id number] 13:56:03 Test Item Value Reference Range Interpretation [...] 0-1 PERCENT (BEAKER) (test code = 2801) [id number] 13:40:15 Test Item Value Reference Range Interpretation Comments PARTIAL THROMBOPLASTIN TIME 40.7 seconds 22.5-36.0 H (BEAKER) (test code = 760) [id number] 13:40:14 Test Item Value Reference Range Interpretation Comments FIBRINOGEN LEVEL (BEAKER) (test 374 mg/dl 225-434 code = 658) PROTHROMBIN [id number] 13:40:08 Test Item Value Reference Range Interpretation Comments PROTIME (BEAKER) 21.5 seconds 11.9-14.2 H (test code = 759) INR (BEAKER) (test 1.89 See_Comment [Automat ed message] code = 370) The system [employer] generated this result transmitted ref erence range: <=5.90. The reference range was not used to int erpret this result as normal/abnormal . RECOMMENDED COUMADIN/WARFARIN INR THERAPY RANGESSTANDARD DOSE: 2.0 - 3.0 Includes: PROPHYLAXIS for venous thrombosis, systemic embolization; TREATMENT for venous thrombosis and/or pulmonary embolus.HIGH RISK: Target INR is 2.5-3.5 for patients with mechanical heart valves.CALCIUM, [id number] 13:38:49 Test Item Value Reference Range Interpretation Comments CALCIUM IONIZED (BEAKER) (test 1.13 mmol/L 1.12-1.27 code = 698) PH, BLOOD (BEAKER) (test code = 7.35 1810) GLUCOSE-STAT [id number] 13:37:55 Test Item Value Reference Range Interpretation Comments GLUCOSE RANDOM (BEAKER) (test code 187 mg/dL 70-110 H = 652) HGB/HCT (H&H) - STAT [id number] 13:37:55 Test Item Value Reference Range Interpretation Comments HEMOGLOBIN (BEAKER) (test code = 8.0 GM/DL 13.0-16.8 L 410) HEMATOCRIT (BEAKER) (test code = 24.0 % 40.0-50.0 L 411) BLOOD GAS, [id number] 13:37:54 Test Item Value Reference Range Interpretation [...] (test code = 1819) 94.0 SODIUM NA-STAT [id number] 13:37:41 Test Item Value Reference Range Interpretation Comments SODIUM (BEAKER) (test code = 381) 135 meq/L 136-145 L POTASSIUM-STAT [id number] 13:37:41 Test Item Value Reference Range Interpretation Comments POTASSIUM (BEAKER) (test code = 3.6 meq/L 3.6-5.5 379) Platelet [id number] 13:30:37 Test Item Value Reference Range Interpretation Comments Platelets (test code 136 See_Comment L [Autom ated = 777-3) message] The system which generated this result transmit dante reference range : 150 - 450 K/CU MM. The reference range was not u sed to interpret th is result as normal/abnormal . EMERSON (test code = EMERSON) Systems Testing Laboratory Technician ID - [id number] Lab Interpretation Abnormal (test code = 36735-6) [facility] [id number] 13:30:37 Test Item Value Reference Range Interpretation Comments Platelets (test code 136 See_Comment L [Autom ated = 777-3) message] The system which generated this result transmit danet reference range : 150 - 450 K/CU MM. The reference range was not u sed to interpret th is result as normal/abnormal . EMERSON (test code = EMERSON) Systems Testing Laboratory Technician ID - [id number] Lab Interpretation Abnormal (test code = 89840-6) [facility] [id number] 13:30:37 Test Item Value Reference Range Interpretation Comments Platelets (test code 136 See_Comment L [Autom ated = 777-3) message] The system which generated this result transmit dante reference range : 150 - 450 K/CU MM. The reference range was not u sed to interpret th is result as normal/abnormal . EMERSON (test code = EMERSON) Systems Testing Laboratory Technician ID - [id number] Lab Interpretation Abnormal (test code = 05791-2) [facility] [id number] 13:30:37 Test Item Value Reference Range Interpretation Comments PLATELET COUNT (BEAKER) (test 136 K/CU MM 150-450 L code = 756) Systems Testing Laboratory Technician ID - [id number], [id number] 13:24:01 Test Item Value Reference Range Interpretation Comments CALCIUM IONIZED (BEAKER) (test 1.23 mmol/L 1.12-1.27 code = 698) PH, BLOOD (BEAKER) (test code = 7.35 1810) HGB/HCT (H&H) - STAT [id number] 13:23:58 Test Item Value Reference Range Interpretation Comments HEMOGLOBIN (BEAKER) (test code = 8.2 GM/DL 13.0-16.8 L 410) HEMATOCRIT (BEAKER) (test code = 24.0 % 40.0-50.0 L 411) GLUCOSE-STAT [id number] 13:23:57 Test Item Value Reference Range Interpretation Comments GLUCOSE RANDOM (BEAKER) (test code 212 mg/dL 70-110 H = 652) BLOOD GAS, [id number] 13:23:56 Test Item Value Reference Range Interpretation [...] (BEAKER) (test code = 1819) 100.0 POTASSIUM-STAT [id number] 13:23:26 Test Item Value Reference Range Interpretation Comments POTASSIUM (BEAKER) (test code = 3.9 meq/L 3.6-5.5 379) SODIUM NA-STAT [id number] 13:23:25 Test Item Value Reference Range Interpretation Comments SODIUM (BEAKER) (test code = 381) 135 meq/L 136-145 L GLUCOSE-STAT [id number] 12:29:15 Test Item Value Reference Range Interpretation Comments GLUCOSE RANDOM (BEAKER) (test code 181 mg/dL 70-110 H = 652) HGB/HCT (H&H) - STAT [id number] 12:29:15 Test Item Value Reference Range Interpretation Comments HEMOGLOBIN (BEAKER) (test code = 8.3 GM/DL 13.0-16.8 L 410) HEMATOCRIT (BEAKER) (test code = 24.0 % 40.0-50.0 L 411) SODIUM NA-STAT [id number] 12:29:14 Test Item Value Reference Range Interpretation Comments SODIUM (BEAKER) (test code = 381) 133 meq/L 136-145 L BLOOD GAS, [id number] 12:29:13 Test Item Value Reference Range Interpretation [...] (BEAKER) (test code = 1819) 70.0 POTASSIUM-STAT [id number] 12:23:50 Test Item Value Reference Range Interpretation Comments POTASSIUM (BEAKER) (test code = 5.4 meq/L 3.6-5.5 379) HGB/HCT (H&H) - STAT [id number] 12:19:25 Test Item Value Reference Range Interpretation Comments HEMOGLOBIN (BEAKER) (test code = 7.8 GM/DL 13.0-16.8 L 410) HEMATOCRIT (BEAKER) (test code = 23.0 % 40.0-50.0 L 411) GLUCOSE-STAT [id number] 12:19:24 Test Item Value Reference Range Interpretation Comments GLUCOSE RANDOM (BEAKER) (test code 185 mg/dL 70-110 H = 652) BLOOD GAS, [id number] 12:19:23 Test Item Value Reference Range Interpretation [...] (test code = 1819) 70.0 SODIUM NA-STAT [id number] 12:19:23 Test Item Value Reference Range Interpretation Comments SODIUM (BEAKER) (test code = 381) 132 meq/L 136-145 L POTASSIUM-STAT [id number] 12:19:10 Test Item Value Reference Range Interpretation Comments POTASSIUM (BEAKER) (test code = 5.1 meq/L 3.6-5.5 379) Hemoglobin [id number] 12:09:07 Test Item Value Reference Range Interpretation [...] ADM Lab Interpretation Normal (test code = 96288-7) [facility] [id number] 12:09:07 Test Item Value Reference Range Interpretation [...] ADM Lab Interpretation Normal (test code = 55855-4) [facility] [id number] 12:09:07 Test Item Value Reference Range Interpretation [...] ADM Lab Interpretation Normal (test code = 44633-8) [facility] [id number] 12:09:07 Test Item Value Reference Range Interpretation [...] 5.7- 6.4% indicates increased risk for diabetes (prediabetes)."Systems Testing Laboratory Technician ID - ADM LACTIC ACID, [id number] 12:07:07 Test Item Value Reference Range Interpretation Comments LACTATE BLOOD 1.0 mmol/L 0.5-2.2 Specimen sligh tly ARTERIAL (2) (BEAKER) hemoly zed (test code = 2874) Systems Testing Laboratory Technician ID - BSGLUCOSE-STAT [id number] 11:24:11 Test Item Value Reference Range Interpretation Comments GLUCOSE RANDOM (BEAKER) (test code 191 mg/dL 70-110 H = 652) HGB/HCT (H&H) - STAT [id number] 11:24:11 Test Item Value Reference Range Interpretation Comments HEMOGLOBIN (BEAKER) (test code = 7.9 GM/DL 13.0-16.8 L 410) HEMATOCRIT (BEAKER) (test code = 23.0 % 40.0-50.0 L 411) SODIUM NA-STAT [id number] 11:24:10 Test Item Value Reference Range Interpretation Comments SODIUM (BEAKER) (test code = 381) 132 meq/L 136-145 L BLOOD GAS, [id number] 11:24:09 Test Item Value Reference Range Interpretation [...] (test code = 1819) 80.0 LACTIC ACID, [id number] 11:12:30 Test Item Value Reference Range Interpretation Comments LACTATE BLOOD 1.1 mmol/L 0.5-2.2 Specimen sligh tly ARTERIAL (2) (BEAKER) hemoly zed (test code = 2874) Systems Testing Laboratory Technician ID - BSPOTASSIUM-STAT [id number] 11:12:12 Test Item Value Reference Range Interpretation Comments POTASSIUM (BEAKER) (test code = 4.6 meq/L 3.6-5.5 379) HGB/HCT (H&H) - STAT [id number] 10:59:07 Test Item Value Reference Range Interpretation Comments HEMOGLOBIN (BEAKER) (test code = 8.9 GM/DL 13.0-16.8 L 410) HEMATOCRIT (BEAKER) (test code = 26.0 % 40.0-50.0 L 411) GLUCOSE-STAT [id number] 10:59:06 Test Item Value Reference Range Interpretation Comments GLUCOSE RANDOM (BEAKER) (test code 153 mg/dL 70-110 H = 652) SODIUM NA-STAT [id number] 10:59:05 Test Item Value Reference Range Interpretation Comments SODIUM (BEAKER) (test code = 381) 132 meq/L 136-145 L BLOOD GAS, [id number] 10:59:04 Test Item Value Reference Range Interpretation [...] (BEAKER) (test code = 1819) 80.0 POTASSIUM-STAT [id number] 10:58:12 Test Item Value Reference Range Interpretation Comments POTASSIUM (BEAKER) (test code = 5.3 meq/L 3.6-5.5 379) HGB/HCT (H&H) - STAT [id number] 08:47:12 Test Item Value Reference Range Interpretation Comments HEMOGLOBIN (BEAKER) (test code = 9.5 GM/DL 13.0-16.8 L 410) HEMATOCRIT (BEAKER) (test code = 28.0 % 40.0-50.0 L 411) GLUCOSE-STAT [id number] 08:47:11 Test Item Value Reference Range Interpretation Comments GLUCOSE RANDOM (BEAKER) (test code 121 mg/dL 70-110 H = 652) BLOOD GAS, [id number] 08:47:10 Test Item Value Reference Range Interpretation [...] (BEAKER) (test code = 1819) 95.0 CALCIUM, [id number] 08:46:35 Test Item Value Reference Range Interpretation Comments CALCIUM IONIZED (BEAKER) (test 1.12 mmol/L 1.12-1.27 code = 698) PH, BLOOD (BEAKER) (test code = 7.46 1810) POTASSIUM-STAT [id number] 08:46:14 Test Item Value Reference Range Interpretation Comments POTASSIUM (BEAKER) (test code = 3.7 meq/L 3.6-5.5 379) SODIUM NA-STAT [id number] 08:46:13 Test Item Value Reference Range Interpretation Comments SODIUM (BEAKER) (test code = 381) 135 meq/L 136-145 L [id number] 05:26:11 Test Item Value Reference Range Interpretation Comments TSH (test code = 1.491 See_Comment [Automated 26218-7) message] The system which generated this result transmit dante reference range : 0.350 - 4.940 uIU/mL. The reference range was not used to interpret this result as normal/abnormal . EMERSON (test code = EMERSON) Systems Testing Laboratory Technician ID - MARZENA Krishna Lab Interpretation Normal (test code = 01972-5) [place] [id number] 05:26:11 Test Item Value Reference Range Interpretation Comments TSH (test code = 1.491 See_Comment [Automated 63890-3) message] The system which generated this result transmit dante reference range : 0.350 - 4.940 uIU/mL. The reference range was not used to interpret this result as normal/abnormal . EMERSON (test code = EMERSON) Systems Testing Laboratory Technician ID - MARZENA Krishna Lab Interpretation Normal (test code = 01942-5) [place] [id number] 05:26:11 Test Item Value Reference Range Interpretation Comments TSH (test code = 1.491 See_Comment [Automated 76185-5) message] The system which generated this result transmit dante reference range : 0.350 - 4.940 uIU/mL. The reference range was not used to interpret this result as normal/abnormal . EMERSON (test code = EMERSON) Systems Testing Laboratory Technician ID - MARZENA M Lab Interpretation Normal (test code = 18600-3) [place] [id number] 05:26:11 Test Item Value Reference Range Interpretation Comments THYROID STIMULATING HORMONE 1.491 uIU/mL 0.350-4.940 (BEAKER) (test code = 772) Systems Testing Laboratory Technician ID - MARZENA MLipid [id number] 04:13:29 Test Item Value Reference Range Interpretation Comments Triglycerides (test 49 mg/dL code = 2571-8) Cholesterol (test code 92 mg/dL = 2093-3) HDL (test code = 43 mg/dL 2085-04) LDL Calculated (test 39 mg/dL code = 10443-2) EMERSON (test code = EMERSON) Triglyceride Reference Range: Low Risk <150 Borderline 150-199 High Risk 200-499 Very High Risk >=500 Cholesterol Reference Range: Low Risk <200 Borderline 200-239 High Risk >240 HDL Cholesterol Reference Range: Low Risk >=60 High Risk <40 LDL Cholesterol Reference Range: Optimal <100 Near Optimal 100-129 Borderline 130-159 High 160-189 Very High >=190 Systems Testing Laboratory Technician ID - BSOperator ID - BS [facility] [id number] 04:13:29 Test Item Value Reference Range Interpretation Comments Triglycerides (test 49 mg/dL code = 2571-8) Cholesterol (test code 92 mg/dL = 2092-10) HDL (test code = 43 mg/dL 2085-04) LDL Calculated (test 39 mg/dL code = 75269-7) EMERSON (test code = EMERSON) Triglyceride Reference Range: Low Risk <150 Borderline 150-199 High Risk 200-499 Very High Risk >=500 Cholesterol Reference Range: Low Risk <200 Borderline 200-239 High Risk >240 HDL Cholesterol Reference Range: Low Risk >=60 High Risk <40 LDL Cholesterol Reference Range: Optimal <100 Near Optimal 100-129 Borderline 130-159 High 160-189 Very High >=190 Systems Testing Laboratory Technician ID - BSOperator ID - BS [facility] [id number] 04:13:29 Test Item Value Reference Range Interpretation Comments Triglycerides (test 49 mg/dL code = 2571-8) Cholesterol (test code 92 mg/dL = 2092-) HDL (test code = 43 mg/dL 2085-04) LDL Calculated (test 39 mg/dL code = 98936-5) EMERSON (test code = EMERSON) Triglyceride Reference Range: Low Risk <150 Borderline 150-199 High Risk 200-499 Very High Risk >=500 Cholesterol Reference Range: Low Risk <200 Borderline 200-239 High Risk >240 HDL Cholesterol Reference Range: Low Risk >=60 High Risk <40 LDL Cholesterol Reference Range: Optimal <100 Near Optimal 100-129 Borderline 130-159 High 160-189 Very High >=190 Systems Testing Laboratory Technician ID - BSOperator ID - BS [facility] Hospital[facility]IP[facility] [id number] 04:13:29 Test Item Value Reference Range Interpretation [...] Borderline 130-159 High 160-189 Very High >=190 Systems Testing Laboratory Technician ID - BSOperator ID - BSCBC W/PLT COUNT & AUTO [id number] 03:49:38 Test Item Value Reference Range Interpretation [...] (BEAKER) (test code = 2801) COMPREHENSIVE METABOLIC [id number] 03:30:53 Test Item Value Reference Range Interpretation [...] S NOT APPLICABLE FOR DIALYSIS PATIEN TS. Systems Testing Laboratory Technician ID - [id number] 03:30:53 Test Item Value Reference Range Interpretation Comments MAGNESIUM (BEAKER) (test code = 2.3 mg/dL 1.6-2.6 627) Systems Testing Laboratory Technician ID - [id number] 03:22:52 Test Item Value Reference Range Interpretation Comments PARTIAL THROMBOPLASTIN TIME 67.2 seconds 22.5-36.0 H (BEAKER) (test code = 760) PROTHROMBIN [id number] 03:21:30 Test Item Value Reference Range Interpretation Comments PROTIME (BEAKER) 15.3 seconds 11.9-14.2 H (test code = 759) INR (BEAKER) (test 1.23 See_Comment [Automat ed message] code = 370) The system [employer] generated this result transmitted ref erence range: <=5.90. The reference range was not used to int erpret this result as normal/abnormal . RECOMMENDED COUMADIN/WARFARIN INR THERAPY RANGESSTANDARD DOSE: 2.0 - 3.0 Includes: PROPHYLAXIS for venous thrombosis, systemic embolization; TREATMENT for venous thrombosis and/or pulmonary embolus.HIGH RISK: Target INR is 2.5-3.5 for patients with mechanical heart valves.BLOOD GAS, [id number] 03:08:40 Test Item Value Reference Range Interpretation Comments PH VENOUS (BEAKER) (test code = 7.45 7.32-7.42 H 701) PCO2 VENOUS (BEAKER) (test code = 39 mm Hg 41-51 L 755) PO2 VENOUS (BEAKER) (test code = 46 mm Hg 25-40 H 702) O2 SATURATION VENOUS (BEAKER) 83.8 % 40.0-70.0 H (test code = 703) HCO3 VENOUS (BEAKER) (test code = 27 mmol/L -29 705) BASE EXCESS VENOUS (BEAKER) (test 2.6 mmol/L -2.0-3.0 code = 704) PATIENT TEMPERATURE (BEAKER) (test 37.0 code = 1818) FIO2 (BEAKER) (test code = 1819) 21.0 POCT-GLUCOSE [id number] 21:21:10 Test Item Value Reference Range Interpretation Comments POC-GLUCOSE METER 163 mg/dL 70-110 H : TESTED A T [facility] 6720 ([facility]) (test code = [facility], 1538) [address]: Systems Testing Laboratory Technician/Techni bart ID = [id number] for UGLORIA MEI PROTHROMBIN [id number] 20:13:27 Test Item Value Reference Range Interpretation Comments [facility] 15.3 seconds 11.9-14.2 H (test code = 759) INR ([facility]) (test 1.23 See_Comment [Automat ed message] code = 370) The system [employer] generated this result transmitted ref erence range: <=5.90. The reference range was not used to int erpret this result as normal/abnormal . RECOMMENDED COUMADIN/WARFARIN INR THERAPY RANGESSTANDARD DOSE: 2.0 - 3.0 Includes: PROPHYLAXIS for venous thrombosis, systemic embolization; TREATMENT for venous thrombosis and/or pulmonary embolus.HIGH RISK: Target INR is 2.5-3.5 for patients with mechanical heart valves.[id number] 18:18:05 Test Item Value Reference Range Interpretation Comments PARTIAL THROMBOPLASTIN TIME 65.4 seconds 22.5-36.0 H ([facility]) (test code = 760) POCT-GLUCOSE [id number] 17:26:15 Test Item Value Reference Range Interpretation Comments POC-GLUCOSE METER 146 mg/dL 70-110 H : Notified RN/: (BRAXTON) (test code = TESTED AT [facility] 6720 1537) [facility], [address]: Systems Testing Laboratory Technician/Techni bart ID = [id number] for GODWIN FLOYD POCT-GLUCOSE [id number] 11:21:58 Test Item Value Reference Range Interpretation Comments POC-GLUCOSE METER 142 mg/dL 70-110 H : Notified RN/MD: (BRAXTON) (test code = TESTED AT [facility] 67 1538) [facility], [address]: Systems Testing Laboratory Technician/Techni bart ID = [id number] for GODWIN FLOYD [id number] 11:20:08 Test Item Value Reference Range Interpretation Comments PARTIAL THROMBOPLASTIN TIME 78.4 seconds 22.5-36.0 H (BRAXTON) (test code = 760) POCT-GLUCOSE [id number] 08:18:13 Test Item Value Reference Range Interpretation Comments POC-GLUCOSE METER 154 mg/dL 70-110 H : Notified RN/MD: (BRAXTON) (test code = TESTED AT [facility] 6720 1538) [facility], [address]: Systems Testing Laboratory Technician/Techni bart ID = [id number] for GODWIN FLOYD [id number] 06:28:05 Test Item Value Reference Range Interpretation Comments MAGNESIUM (BEAKER) (test code = 2.2 mg/dL 1.6-2.6 627) Systems Testing Laboratory Technician ID - KEARA WBASIC METABOLIC [id number] 06:28:04 Test Item Value Reference Range Interpretation [...] S NOT APPLICABLE FOR DIALYSIS PATIEN TS. Systems Testing Laboratory Technician ID - KEARA WCBC W/PLT COUNT & AUTO [id number] 05:57:11 Test Item Value Reference Range Interpretation [...] 0-1 PERCENT (BEAKER) (test code = 2801) [id number] 05:39:02 Test Item Value Reference Range Interpretation Comments PARTIAL THROMBOPLASTIN TIME 55.5 seconds 22.5-36.0 H (BEAKER) (test code = 760) BLOOD GAS, [id number] 05:24:42 Test Item Value Reference Range Interpretation [...] FIO2 (BEAKER) (test code = 1819) 21.0 [id number] 23:08:23 Test Item Value Reference Range Interpretation Comments PARTIAL THROMBOPLASTIN TIME 55.5 seconds 22.5-36.0 H (BEAKER) (test code = 760) POCT-GLUCOSE [id number] 21:56:54 Test Item Value Reference Range Interpretation Comments POC-GLUCOSE METER 108 mg/dL 70-110 : TESTED A T [facility] 6720 (BEAKER) (test code = [place], 1538) [address]: Systems Testing Laboratory Technician/Techni bart ID = [id number] for Reagan catrinafuentesSharon Transesophageal [id number] 21:03:33Ejection FractionSLEH ECHO HEARTLAB MKCKESSON [facility] [id number] 21:03:33Ejection FractionSLEH ECHO HEARTLAB MKCKESSON [facility]byterianTrans[facility] [id number] 21:03:33Ejection FractionSLEH ECHO HEARTLAB MKCKESSON [facility]byterianPOCT-GLUCOSE [id number] 17:16:14 Test Item Value Reference Range Interpretation Comments POC-GLUCOSE METER 112 mg/dL 70-110 H : TESTED A T [facility] 6720 (BEAKER) (test code = [facility] [place], 1538) [address]: Systems Testing Laboratory Technician/Techni bart ID = [id number] for NAHED HERNANDEZ B-type Natriuretic Factor (BNP)2021-09-05 17:13:19 Test Item Value Reference Range Interpretation Comments BNP (test code = 13270-5) 427 pg/mL 0-100 H EMERSON (test code = EMERSON) Systems Testing Laboratory Technician ID - BS Lab Interpretation (test Abnormal code = 83861-1) [facility] (BNP)2021-09-05 17:13:19 Test Item Value Reference Range Interpretation Comments BNP (test code = 32969-6) 427 pg/mL 0-100 H EMERSON (test code = EMERSON) Systems Testing Laboratory Technician ID - BS Lab Interpretation (test Abnormal code = 62236-2) [facility] (BNP)2021-09-05 17:13:19 Test Item Value Reference Range Interpretation Comments BNP (test code = 16558-7) 427 pg/mL 0-100 H EMERSON (test code = EMERSON) Systems Testing Laboratory Technician ID - BS Lab Interpretation (test Abnormal code = 46550-2) [facility] NATRIURETIC FACTOR (BNP)2021-09-05 17:13:19 Test Item Value Reference Range Interpretation Comments B-TYPE NATRIURETIC PEPTIDE (BEAKER) 427 pg/mL 0-100 H (test code = 700) Systems Testing Laboratory Technician ID - [id number] 17:08:24 Test Item Value Reference Range Interpretation Comments MAGNESIUM (BEAKER) (test code = 2.3 mg/dL 1.6-2.6 627) Systems Testing Laboratory Technician ID - BSBASIC METABOLIC [id number] 17:08:23 Test Item Value Reference Range Interpretation [...] S NOT APPLICABLE FOR DIALYSIS PATIEN TS. Systems Testing Laboratory Technician ID - [id number] 16:56:34 Test Item Value Reference Range Interpretation Comments PARTIAL THROMBOPLASTIN TIME 78.6 seconds 22.5-36.0 H ([facility]) (test code = 760) POCT-GLUCOSE [id number] 11:40:10 Test Item Value Reference Range Interpretation Comments POC-GLUCOSE METER 123 mg/dL 70-110 H : TESTED A T [facility] 6720 ([facility]) (test code = [facility], 1538) [address]: Systems Testing Laboratory Technician/Techni bart ID = [id number] for HERIBERTO BROWN [id number] 08:48:28 Test Item Value Reference Range Interpretation Comments PARTIAL THROMBOPLASTIN TIME 50.1 seconds 22.5-36.0 H ([facility]) (test code = 760) POCT-GLUCOSE [id number] 08:33:40 Test Item Value Reference Range Interpretation Comments POC-GLUCOSE METER 83 mg/dL 70-110 : TESTED A T [facility] 6720 ([facility]) (test code = [facility], 1538) [address]: Systems Testing Laboratory Technician/Techni bart ID = [id number] for MELANIE NICOLE NAHED Carotid doppler [id number] 07:35:52Ejection FractionSLEH ECHO HEARTLAB MKCKESSON [facility]byterianCarotid doppler [id number] 07:35:52Ejection FractionSLEH ECHO HEARTLAB MKCKESSON [facility]byterianCarotid doppler [id number] 07:35:52Ejection FractionSLEH ECHO HEARTLAB MKCKESSON [facility] PresbyterianAPTT2022-01-18 05:35:19 Test Item Value Reference Range Interpretation Comments PARTIAL THROMBOPLASTIN TIME > seconds 22.5-36.0 HH (BEAKER) (test code = 760) RAD, CHEST, 1 VIEW, NON [id number] 05:07:00Reason for exam:->Respiratory failureShould this be performed at the bedside?->Yes [facility] : 1945 Sex: MFINAL REPORT RAD, CHEST, 1 VIEW, NON DEPT INDICATION: Respiratory failure COMPARISON: Prior day's exam FINDINGS: Portable frontal view of the chest. IMPRESSION: Lungs and pleura: Bilateral pulmonary opacities are reduced. No pneumothorax.Heart and mediastinum: Stable contours. Additional findings: None. Signed: [employer] MDReport Verified Date/Time: 09/05/2021 05:07:55 [id number] 05:06:53 Test Item Value Reference Range Interpretation Comments MAGNESIUM (BEAKER) (test code = 2.3 mg/dL 1.6-2.6 627) Systems Testing Laboratory Technician ID - SHANE GBASIC METABOLIC [id number] 05:06:52 Test Item Value Reference Range Interpretation [...] S NOT APPLICABLE FOR DIALYSIS PATIEN TS. Systems Testing Laboratory Technician ID - SHANE GVancomycin level, [id number] 05:03:34 Test Item Value Reference Range Interpretation Comments Vancomycin Tr (test code = 7.0 ug/mL 10.0-20.0 L 4092-3) EMERSON (test code = EMERSON) Systems Testing Laboratory Technician ID - SHANE G Lab Interpretation (test Abnormal code = 98888-4) [facility] HospitalVancom[facility] level, [id number] 05:03:34 Test Item Value Reference Range Interpretation Comments Vancomycin Tr (test code = 7.0 ug/mL 10.0-20.0 L 4092-3) EMERSON (test code = EMERSON) Systems Testing Laboratory Technician ID - SHANE G Lab Interpretation (test Abnormal code = 00380-8) [facility] HospitalVancomycin level, [id number] 05:03:34 Test Item Value Reference Range Interpretation Comments Vancomycin Tr (test code = 7.0 ug/mL 10.0-20.0 L 4092-3) EMERSON (test code = EMERSON) Systems Testing Laboratory Technician ID - SHANE G Lab Interpretation (test Abnormal code = 96696-9) [facility] HospitalVANCOMYCIN LEVEL, [id number] 05:03:34 Test Item Value Reference Range Interpretation Comments VANCOMYCIN TROUGH (BEAKER) (test 7.0 ug/mL 10.0-20.0 L code = 522) Systems Testing Laboratory Technician ID - SHANE GBLOOD GAS, [id number] 04:54:51 Test Item Value Reference Range Interpretation [...] (BEAKER) (test code = 1819) 21.0 POCT-GLUCOSE [id number] 00:08:56 Test Item Value Reference Range Interpretation Comments POC-GLUCOSE METER 92 mg/dL 70-110 : TESTED A T [facility] 6720 (BEAKER) (test code [facility], = 1538) [address]: Systems Testing Laboratory Technician/Techni bart ID = [id number] for Christopher Hoskins [id number] 22:59:43 Test Item Value Reference Range Interpretation Comments PARTIAL THROMBOPLASTIN TIME 105.5 seconds 22.5-36.0 H (BEAKER) (test code = 760) POCT-GLUCOSE [id number] 22:43:54 Test Item Value Reference Range Interpretation Comments POC-GLUCOSE METER 131 mg/dL 70-110 H : TESTED A T [facility] 6720 (BEAKER) (test code = [facility], 1538) [address]: Systems Testing Laboratory Technician/Techni bart ID = [id number] for ANDI MIGUEL BASIC METABOLIC [id number] 20:21:48 Test Item Value Reference Range Interpretation [...] S NOT APPLICABLE FOR DIALYSIS PATIEN TS. Systems Testing Laboratory Technician ID - [id number] 20:21:48 Test Item Value Reference Range Interpretation Comments MAGNESIUM (BEAKER) (test code = 2.4 mg/dL 1.6-2.6 627) Systems Testing Laboratory Technician ID - DBBLOOD GAS, [id number] 18:19:48 Test Item Value Reference Range Interpretation [...] (BEAKER) (test code = 1819) 21.0 POCT-GLUCOSE [id number] 18:13:29 Test Item Value Reference Range Interpretation Comments POC-GLUCOSE METER 98 mg/dL 70-110 : TESTED A T [facility] 6720 (BEAKER) (test code = [facility] [place], 1538) [address]: Systems Testing Laboratory Technician/Techni bart ID = [id number] for NAHED JOHN [id number] 15:50:51 Test Item Value Reference Range Interpretation Comments PARTIAL THROMBOPLASTIN TIME 79.7 seconds 22.5-36.0 H (BEAKER) (test code = 760) [id number] 14:42:01 Test Item Value Reference Range Interpretation Comments PARTIAL THROMBOPLASTIN TIME 196.8 seconds 22.5-36.0 HH (BEAKER) (test code = 760) [id number] 13:31:24 Test Item Value Reference Range Interpretation Comments PARTIAL THROMBOPLASTIN TIME > seconds 22.5-36.0 HH (BEAKER) (test code = 760) POCT-GLUCOSE [id number] 12:32:34 Test Item Value Reference Range Interpretation Comments POC-GLUCOSE METER 96 mg/dL 70-110 : TESTED A T [facility] 6720 (BEAKER) (test code = [facility], 1538) [address]: Systems Testing Laboratory Technician/Techni bart ID = [id number] for THOMAS JOHNA POCT-GLUCOSE [id number] 09:39:48 Test Item Value Reference Range Interpretation Comments POC-GLUCOSE METER 93 mg/dL 70-110 : TESTED A T [facility] 6720 (BEAKER) (test code = [facility], 1538) [address]: Systems Testing Laboratory Technician/Techni bart ID = [id number] for THOMAS JOHNA [id number] 05:38:09 Test Item Value Reference Range Interpretation Comments MAGNESIUM (BEAKER) (test code = 2.2 mg/dL 1.6-2.6 627) Systems Testing Laboratory Technician ID - PIAYA LBASIC METABOLIC [id number] 05:38:08 Test Item Value Reference Range Interpretation [...] S NOT APPLICABLE FOR DIALYSIS PATIEN TS. Systems Testing Laboratory Technician ID - PIAYA [id number] 05:37:51 Test Item Value Reference Range Interpretation Comments PARTIAL THROMBOPLASTIN TIME 74.7 seconds 22.5-36.0 H (BEAKER) (test code = 760) BLOOD GAS, [id number] 05:36:41 Test Item Value Reference Range Interpretation [...] 1819) 21.0 CBC W/PLT COUNT & AUTO [id number] 05:07:56 Test Item Value Reference Range Interpretation [...] = 2801) RAD, CHEST, 1 VIEW, NON [id number] 04:31:00Reason for exam:->Respiratory failureShould this be performed at the bedside?->Yes [facility] 1945 Sex: MFINAL REPORT RAD, CHEST, 1 VIEW, NON DEPT INDICATION: Respiratory failure COMPARISON: Prior day's exam FINDINGS: Portable frontal view of the chest. IMPRESSION: Support Lines: None Lungs and pleura: Reduced airspace and pleural opacities. No pneumothorax.Heart and mediastinum: Stable contours. Additional findings: None. Signed: Link Pak MDReport Verified Date/Time: 09/04/2021 04:31:46 POCT-GLUCOSE [id number] 22:15:29 Test Item Value Reference Range Interpretation Comments POC-GLUCOSE METER 113 mg/dL 70-110 H : TESTED A T [facility] 6720 (BEAKER) (test code = [place], 1538) [address]: Systems Testing Laboratory Technician/Techni bart ID = [id number] for THEODORA ACOSTA (Tyrel)EVAN Xabrdlnihlaqa1491-65-61 17:34:10 Test Item Value Reference Range Interpretation Comments Procalcitonin (test code = 0.74 ng/mL <0.05 H 42604-9) EMERSON (test code = EMERSON) SEPSIS RISK (ng/mL)Low: 0.05-0.50Intermedia te: 0.51-2.00High: >=2.01 Lab Interpretation (test Abnormal code = 91947-4) [facility] HospitalVgblxqCxnneyyzwoqgz2062-07-33 17:34:10 Test Item Value Reference Range Interpretation Comments Procalcitonin (test code = 0.74 ng/mL <0.05 H 07789-6) EMERSON (test code = EMERSON) SEPSIS RISK (ng/mL)Low: 0.05-0.50Intermedia te: 0.51-2.00High: >=2.01 Lab Interpretation (test Abnormal code = 79629-6) [facility] HospitalJfubclEoeuqwedaofis8108-50-04 17:34:10 Test Item Value Reference Range Interpretation Comments Procalcitonin (test code = 0.74 ng/mL <0.05 H 50547-7) EMERSON (test code = EMERSON) SEPSIS RISK (ng/mL)Low: 0.05-0.50Intermedia te: 0.51-2.00High: >=2.01 Lab Interpretation (test Abnormal code = 46870-9) [facility] HospitalBxowpeNPSFJOJGTYNZQ2449-97-72 17:34:10 Test Item Value Reference Range Interpretation Comments PROCALCITONIN (BEAKER) (test code 0.74 ng/mL <0.05 H = 3036) SEPSIS RISK (ng/mL)Low: 0.05-0.50Intermediate: 0.51-2.00High: >=2.01BASIC METABOLIC [id number] 17:02:45 Test Item Value Reference Range Interpretation [...] S NOT APPLICABLE FOR DIALYSIS PATIEN TS. Systems Testing Laboratory Technician ID - YRJZGFAMYUR3515-67-67 17:02:45 Test Item Value Reference Range Interpretation Comments MAGNESIUM (BEAKER) (test code = 2.3 mg/dL 1.6-2.6 627) Systems Testing Laboratory Technician ID - DBPOCT-GLUCOSE ESASP2590-28-82 16:39:27 Test Item Value Reference Range Interpretation Comments POC-GLUCOSE METER 102 mg/dL 70-110 : TESTED A T [facility] 6720 (BEAKER) (test code = DOMINIQUE CARD [place], 1538) [address]: Systems Testing Laboratory Technician/Techni bart ID = [id number] for Keo babcock Eduardo BLOOD GAS, [id number] 16:20:14 Test Item Value Reference Range Interpretation [...] 2D Echo W/Doppler(CW/PW/Color)2021-09-03 14:12:53Ejection FractionSLEH [facility]CHO [facility] W/Doppler(CW/PW/Color)2021-09-03 14:12:53Ejection FractionSLE ECHO [facility] Echo W/Doppler(CW/PW/Color) 2021-09-03 14:12:53Ejection FractionSLE [facility]2022-01-16 07:54:36 Test Item Value Reference Range Interpretation Comments MAGNESIUM (BEAKER) (test code = 2.4 mg/dL 1.6-2.6 627) Systems Testing Laboratory Technician ID - PIAYA LRAD, CHEST, 1 VIEW, NON [id number] 06:39:00Reason for exam:->Respiratory failureShould this be performed at the bedside?->Yes [facility] : 1945 Sex: [...] MDReport Verified Date/Time: 09/03/2021 06:39:59 BASIC METABOLIC [id number] 05:41:02 Test Item Value Reference Range Interpretation [...] S NOT APPLICABLE FOR DIALYSIS PATIEN TS. Systems Testing Laboratory Technician ID - PIAYA LBLOOD GAS, [id number] 05:28:49 Test Item Value Reference Range Interpretation [...] = 1819) 50.0 High Sensitivity Troponin I ([facility]/Suraj Only)2021-09-03 05:25:39 Test Item Value Reference Range Interpretation Comments Troponin I HS (test 35 pg/ml See_Comment [Automa dante code = 51613-2) message] The system which generated this result transmitted reference range : <=35. The reference range was not used to interpret this result as normal/abnormal . EMERSON (test code = Systems Testing Laboratory Technician ID - EMERSON) [employer] STAT High Sensitivity Troponin-I results should be used in conjunction with other diagnostic information such as ECG, clinical observations and information, and patient symptoms to aid in the diagnosis of [place]. Lab Interpretation Normal (test code = 62536-1) [facility] ([facility]/Suraj Only) 2021-09-03 05:25:39 Test Item Value Reference Range Interpretation Comments Troponin I HS (test 35 pg/ml See_Comment [Automa dante code = 95229-6) message] The system which generated this result transmitted reference range : <=35. The reference range was not used to interpret this result as normal/abnormal . EMERSON (test code = Systems Testing Laboratory Technician ID - EMERSON) [employer] STAT High Sensitivity Troponin-I results should be used in conjunction with other diagnostic information such as ECG, clinical observations and information, and patient symptoms to aid in the diagnosis of [place]. Lab Interpretation Normal (test code = 82256-8) [facility] ([facility]/Suraj Only) 2021-09-03 05:25:39 Test Item Value Reference Range Interpretation Comments Troponin I HS (test 35 pg/ml See_Comment [Automa dante code = 91425-4) message] The system which generated this result transmitted reference range : <=35. The reference range was not used to interpret this result as normal/abnormal . EMERSON (test code = Systems Testing Laboratory Technician ID - EMERSON) KAYLEEN LThe CHILD WELFARE MANAGER STAT High Sensitivity Troponin-I results should be used in conjunction with other diagnostic information such as ECG, clinical observations and information, and patient symptoms to aid in the diagnosis of [place]. Lab Interpretation Normal (test code = 44271-8) [facility] HospitalHIGH SENSITIVITY TROPONIN [id number] 05:25:39 Test Item Value Reference Range Interpretation Comments HIGH SENSITIVITY 35 pg/ml See_Comment [Automated message] TROPONIN I (test code = The system which [id number]) generated this result transmitted ref erence range: <=35. Th e reference range was not used to int erpret this result as normal/abnormal . Systems Testing Laboratory Technician ID - KAYLEEN LThe CHILD WELFARE MANAGER STAT High Sensitivity Troponin-I results should be used in conjunction with other diagnostic information such as ECG, clinical observations and information, and patient symptoms to aid in the diagnosis of TN.B-TYPE NATRIURETIC FACTOR (BNP)2021-09-03 05:25:38 Test Item Value Reference Range Interpretation Comments B-TYPE NATRIURETIC PEPTIDE 1522 pg/mL 0-100 H (BEAKER) (test code = 700) Systems Testing Laboratory Technician ID - KAYLEEN LLactic acid, [id number] 05:08:12 Test Item Value Reference Range Interpretation Comments Lactate, Venous (test code 0.98 mmol/L 0.50-2.20 = 2872) EMERSON (test code = EMERSON) Systems Testing Laboratory Technician ID - KAYLEEN L Lab Interpretation (test Normal code = 51997-3) [facility] HospitalLactic acid, [id number] 05:08:12 Test Item Value Reference Range Interpretation Comments Lactate, Venous (test code 0.98 mmol/L 0.50-2.20 = 2872) EMERSON (test code = EMERSON) Systems Testing Laboratory Technician ID - PIAYA L Lab Interpretation (test Normal code = 03525-1) [facility] HospitalLactic acid, [id number] 05:08:12 Test Item Value Reference Range Interpretation Comments Lactate, Venous (test code 0.98 mmol/L 0.50-2.20 = 2872) EMERSON (test code = EMERSON) Systems Testing Laboratory Technician ID - KAYLEEN L Lab Interpretation (test Normal code = 65161-5) [facility] HospitalLACTIC ACID, [id number] 05:08:12 Test Item Value Reference Range Interpretation Comments LACTATE BLOOD VENOUS (2) (BEAKER) 0.98 mmol/L 0.50-2.20 (test code = 2872) Systems Testing Laboratory Technician ID - KAYLEEN LCBC W/PLT COUNT & AUTO [id number] 04:46:58 Test Item Value Reference Range Interpretation [...] (test code = 2801) HIGH SENSITIVITY TROPONIN [id number] 23:24:52 Test Item Value Reference Range Interpretation Comments HIGH SENSITIVITY 60 pg/ml See_Comment H [Automated message] TROPONIN I (test code = The system which [id number]) generated this result transmitted ref erence range: <=35. Th e reference range was not used to int erpret this result as normal/abnormal . Systems Testing Laboratory Technician ID - PIAYA LThe CHILD WELFARE MANAGER STAT High Sensitivity Troponin-I results should be used in conjunction with other diagnostic information such as ECG, clinical observations and information, and patient symptoms to aid in the diagnosis of [place].LACTIC ACID, [id number] 23:16:31 Test Item Value Reference Range Interpretation Comments LACTATE BLOOD VENOUS 2.39 mmol/L 0.50-2.20 H Specime n slightly (2) (BEAKER) (test hemolyzed code = 6648) Systems Testing Laboratory Technician ID - PIAYA LBASIC METABOLIC [id number] 20:00:02 Test Item Value Reference Range Interpretation [...] S NOT APPLICABLE FOR DIALYSIS PATIEN TS. Systems Testing Laboratory Technician ID - DBLACTIC ACID, [id number] 19:50:59 Test Item Value Reference Range Interpretation Comments LACTATE BLOOD VENOUS 3.70 mmol/L 0.50-2.20 H Specime n slightly (2) (BEINESSA) (test hemolyzed code = 2872) Systems Testing Laboratory Technician ID - RZYPEJTPKRVSTCG1568-82-10 18:48:36 Test Item Value Reference Range Interpretation Comments PROCALCITONIN (BRAXTON) (test code = < ng/mL <0.05 3036) SEPSIS RISK (ng/mL)Low: 0.05-0.50Intermediate: 0.51-2.00High: >=2.01B-TYPE NATRIURETIC FACTOR (BNP)2021-09-02 18:06:28 Test Item Value Reference Range Interpretation Comments B-TYPE NATRIURETIC PEPTIDE (BRAXTON) 801 pg/mL 0-100 H (test code = 700) Systems Testing Laboratory Technician ID - DBHIGH SENSITIVITY TROPONIN [id number] 18:06:07 Test Item Value Reference Range Interpretation Comments HIGH SENSITIVITY 10 pg/ml See_Comment [Automated message] TROPONIN I (test code = The system which [id number]) generated this result transmitted ref erence range: <=35. Th e reference range was not used to int erpret this result as normal/abnormal . Systems Testing Laboratory Technician ID - DBThe CHILD WELFARE MANAGER STAT High Sensitivity Troponin-I results should be used in conjunctionwith other diagnostic information such as ECG, clinical observations and information, and patient symptoms to aid in the diagnosis of [place].LACTIC ACID, [id number] 18:03:35 Test Item Value Reference Range Interpretation Comments LACTATE BLOOD 5.0 mmol/L 0.5-2.2 HH Specimen sligh tly ARTERIAL (2) (BEINESSA) hemoly zed (test code = 2874) Systems Testing Laboratory Technician ID - DBRAD, CHEST, 1 VIEW, NON [id number] 18:01:00Reason for exam:- >dyspneaShould this be performed at the bedside?->Yes [facility] : 1945 Sex: MFINAL REPORT RAD, CHEST, 1 VIEW, NON DEPT INDICATION: dyspnea COMPARISON: 07/03/21 FINDINGS: Portable frontal view of the chest. IMPRESSION: Support Lines: Overlying leads Lungs andpleura: Bibasilar airspace disease and small bilateral effusions, compatible with mild volume overload. No significant pneumothorax. Heart and mediastinum: Normal contours. Additional findings: None. Signed: Gaby Cordero Verified Date/Time: 09/02/2021 18:01:04 -[id number] 17:41:20 Test Item Value Reference Range Interpretation Comments POC-Glucose (test code = 245 mg/dL 70-110 H : T ESTED AT [facility] 1855) 20 [facility], 770 30: Systems Testing Laboratory Technician/Techni bart ID = [id number] for RIA, NAVDEEP Lab Interpretation (test Abnormal code = 52765-5) [facility] HospitalPOCT-[id number] 17:41:20 Test Item Value Reference Range Interpretation Comments POC-Glucose (test code = 245 mg/dL 70-110 H : T ESTED AT [facility] 1855) 67[address] [facility], 770 30: Systems Testing Laboratory Technician/Techni bart ID = [id number] for RIA, NAVDEEP Lab Interpretation (test Abnormal code = 40823-2) [facility] HospitalPOCT-[id number] 17:41:20 Test Item Value Reference Range Interpretation Comments POC-Glucose (test code = 245 mg/dL 70-110 H : T ESTED AT [facility] 1855) 67[address] [facility], 770 30: Systems Testing Laboratory Technician/Techni bart ID = [id number] for RIA, NAVDEEP Lab Interpretation (test Abnormal code = 70753-0) [facility] HospitalPOCT-[id number] 17:41:20 Test Item Value Reference Range Interpretation Comments POC-GLUCOSE (BEAKER) 245 mg/dL 70-110 H : TESTE D AT [facility] 6720 (test code = 1855) [facility] [place], [address]: Systems Testing Laboratory Technician/Techni bart ID = [id number] for PAIG E, NAVDEEP QVWG-[id number] 17:41:19 Test Item Value Reference Range Interpretation Comments POC-Hemoglobin (test code 12.2 g/dL 13.0-16.8 L : TESTED AT [facility] = 1856) 67[address] [facility], 770 30: Systems Testing Laboratory Technician/Techni bart ID = [id number] for RIA, NAVDEEP Lab Interpretation (test Abnormal code = 38688-8) [facility] HospitalYqfropHTXF-ISJKHRPDBQ8388-56-15 17:41:19 Test Item Value Reference Range Interpretation Comments POC-Hematocrit (test code 36 % 40-50 L : = 1857) Systems Testing Laboratory Technician/Techni bart ID = [id number] for RIA, NAVDEEP Lab Interpretation (test Abnormal code = 76319-4) [facility] HospitalYqhkxfVGUU-BVHSFHLVNM1149-10-15 17:41:19 Test Item Value Reference Range Interpretation Comments POC-Hemoglobin (test code 12.2 g/dL 13.0-16.8 L : TESTED AT [facility] = 1856) 67[address] [facility], 770 30: Systems Testing Laboratory Technician/Techni bart ID = [id number] for RIA, NAVDEEP Lab Interpretation (test Abnormal code = 02330-9) [facility] HospitalFvlffpDUYX-RXJKPVDEMY7034-99-15 17:41:19 Test Item Value Reference Range Interpretation Comments POC-Hematocrit (test code 36 % 40-50 L : = 1857) Systems Testing Laboratory Technician/Techni bart ID = [id number] for RIA, NAVDEEP Lab Interpretation (test Abnormal code = 68151-2) [facility] HospitalJrzyccKHXG-QWOCASTJOP7106-65-15 17:41:19 Test Item Value Reference Range Interpretation Comments POC-Hemoglobin (test code 12.2 g/dL 13.0-16.8 L : TESTED AT [facility] = 1856) [address] [facility], 770 30: Systems Testing Laboratory Technician/Techni bart ID = [id number] for RIA, NAVDEEP Lab Interpretation (test Abnormal code = 79963-8) [facility] HospitalYifkvxWKDP-HPVFPTRJDE6615-77-15 17:41:19 Test Item Value Reference Range Interpretation Comments POC-Hematocrit (test code 36 % 40-50 L : = 1857) Systems Testing Laboratory Technician/Techni bart ID = [id number] for RIA, NAVDEEP Lab Interpretation (test Abnormal code = 85772-1) [facility] HospitalGepatcZKWZ-SOZLAOVEKE3098-63-15 17:41:19 Test Item Value Reference Range Interpretation Comments POC-HEMOGLOBIN 12.2 g/dL 13.0-16.8 L : TESTED AT [place] 2081820 (BEAKER) (test code [facility], = 1856) [address]: Systems Testing Laboratory Technician/Techni bart ID = [id number] for PAIG E, NAVDEEP GNLI-[id number] 17:41:19 Test Item Value Reference Range Interpretation Comments POC-HEMATOCRIT 36 % 40-50 L : Systems Testing Laboratory Technician/Te chnician ID = (BEAKER) (test code = 057818 for RIA, NAVDEEP 1857) ZBP-Zusovrjgp5975-35-15 17:41:18 Test Item Value Reference Range Interpretation Comments POC-Potassium (test code 4.6 meq/L 3.6-5.5 : T ESTED AT [facility] = 1540) [address] [facility], 770 30: Systems Testing Laboratory Technician/Techni bart ID = [id number] for RIA, NAVDEEP Lab Interpretation (test Normal code = 57095-6) [facility] HospitalPOC-Nyruihpyt1525-54-94 17:41:18 Test Item Value Reference Range Interpretation Comments POC-Potassium (test code 4.6 meq/L 3.6-5.5 : T ESTED AT [facility] = 1540) 20 [facility], 770 30: Systems Testing Laboratory Technician/Techni bart ID = [id number] for RIA, NAVDEEP Lab Interpretation (test Normal code = 45210-2) [facility]-Ipwibvryf7612-54-90 17:41:18 Test Item Value Reference Range Interpretation Comments POC-Potassium (test code 4.6 meq/L 3.6-5.5 : T ESTED AT [facility] = 1540) [address] [place] [address], 770 30: Systems Testing Laboratory Technician/Techni bart ID = [id number] for RIA, NAVDEEP Lab Interpretation (test Normal code = 90556-3) [facility]-HITTYIGQN2390-67-98 17:41:18 Test Item Value Reference Range Interpretation Comments POC-POTASSIUM 4.6 meq/L 3.6-5.5 : TESTED AT [facility] 6720 (BEAKER) (test code [facility], = 1540) [address]: Systems Testing Laboratory Technician/Techni bart ID = [id number] for PAIG E, NAVDEEP UJZ-[id number] 17:41:13 Test Item Value Reference Range Interpretation Comments POC-Sodium (test code = 133 meq/L 135-148 L : TE STED AT [facility] 1542) [address] [place] [address], 770 30: Systems Testing Laboratory Technician/Techni bart ID = [id number] for RIA, NAVDEEP Lab Interpretation (test Abnormal code = 81050-7) [facility]-Llqemw0291-94-77 17:41:13 Test Item Value Reference Range Interpretation Comments POC-Sodium (test code = 133 meq/L 135-148 L : TE STED AT [facility] 1542) [address] [place] [address], 770 30: Systems Testing Laboratory Technician/Techni bart ID = [id number] for RIA, NAVDEEP Lab Interpretation (test Abnormal code = 99963-0) [facility]-Wxwcmh5305-58-30 17:41:13 Test Item Value Reference Range Interpretation Comments POC-Sodium (test code = 133 meq/L 135-148 L : TE STED AT [facility] 1542) [address] [place] [address], [address] 30: Systems Testing Laboratory Technician/Techni bart ID = [id number] for RIA, NAVDEEP Lab Interpretation (test Abnormal code = 85947-3) [facility]-[id number] 17:41:13 Test Item Value Reference Range Interpretation Comments POC-SODIUM (BEAKER) 133 meq/L 135-148 L : TESTED AT [facility] 6720 (test code = 1542) MARILYN Morris [facility] [place], [address]: Systems Testing Laboratory Technician/Techni bart ID = [id number] for CHRISTINE ENAVDEEP POC-Blood gases, cvddrnfq7789-01-93 17:41:12 Test Item Value Reference Range Interpretation [...] tomated message] code = 1838) The system [employer] generated this result transmit dante reference range : 80.0 - 90.0 mm Hg. The reference r mayra was not used to interpret this result as normal/abnormal . SO2, Arterial-POC (test 92.0 % 96.0-97.0 L code = 1839) HCO3, Arterilal-POC 17.9 meq/L 21.0-29.0 L (test code = 1840) BE, Arterial-POC (test -7.0 meq/L -2.0-3.0 L : MARIO DANTE AT [facility] code = 1841) 67[address] [facility] [place], [address]: Systems Testing Laboratory Technician/Techni bart ID = [id number] for RIA, NAVDEEP Lab Interpretation Abnormal (test code = 39256-5) [facility]-Blood gases, kuarjlcz0901-37-49 17:41:12 Test Item Value Reference Range Interpretation [...] tomated message] code = 1838) The system [employer] generated this result transmit dante reference range : 80.0 - 90.0 mm Hg. The reference r mayra was not used to interpret this result as normal/abnormal . SO2, Arterial-POC (test 92.0 % 96.0-97.0 L code = 1839) HCO3, Arterilal-POC 17.9 meq/L 21.0-29.0 L (test code = 1840) BE, Arterial-POC (test -7.0 meq/L -2.0-3.0 L : MARIO DANTE AT [facility] code = 1841) [address], [address]: Systems Testing Laboratory Technician/Techni bart ID = [id number] for NAVDEEP ROLLINS Lab Interpretation Abnormal (test code = 97988-3) [facility]-Blood gases, odkcmkgl5523-20-19 17:41:12 Test Item Value Reference Range Interpretation [...] tomated message] code = 1838) The system [employer] generated this result transmit dante reference range : 80.0 - 90.0 mm Hg. The reference r mayra was not used to interpret this result as normal/abnormal . SO2, Arterial-POC (test 92.0 % 96.0-97.0 L code = 1839) HCO3, Arterilal-POC 17.9 meq/L 21.0-29.0 L (test code = 1840) BE, Arterial-POC (test -7.0 meq/L -2.0-3.0 L : MARIO DANTE AT [facility] code = 1841) 6720 [facility], [address]: Systems Testing Laboratory Technician/Techni bart ID = [id number] for RIA, NAVDEEP Lab Interpretation Abnormal (test code = 97789-6) [facility] HospitalPOCT-BLOOD GASES, [id number] 17:41:12 Test Item Value Reference Range Interpretation [...] -7.0 meq/L -2.0-3.0 L : TESTED AT [facility] 6720 ARTERIAL-POC [facility], (BEAKER) (test code 31863: = 1841) Systems Testing Laboratory Technician/Techni bart ID = [id number] for PAIG E, NAVDEEP CT, CHEST, WITH [id number] 16:35:00Unlisted Reason for Exam - Click Yes and Enter Reason Below->YesUnlisted Reason for Exam->rapid 40 lb wt loss, concern for malignancy [facility] : 1945 Sex: [...] MDReport Verified Date/Time: 09/02/2021 16:35:31 Reading Location: [facility] B1 C013Y CT Body Reading Room BASIC METABOLIC [id number] 05:54:20 Test Item Value Reference Range Interpretation [...] S NOT APPLICABLE FOR DIALYSIS PATIEN TS. Systems Testing Laboratory Technician ID - SHANE GCBC W/PLT COUNT & AUTO [id number] 05:27:33 Test Item Value Reference Range Interpretation [...] 0-1 PERCENT (BEAKER) (test code = 2801) [id number] 18:20:35 Test Item Value Reference Range Interpretation Comments Ferritin (test code = 36.01 ng/mL 5.00-275.00 2276-4) EMERSON (test code = EMERSON) Systems Testing Laboratory Technician ID - PIAYA L Lab Interpretation (test Normal code = 39702-2) [facility] HospitalFerritin2022-01-14 18:20:35 Test Item Value Reference Range Interpretation Comments Ferritin (test code = 36.01 ng/mL 5.00-275.00 2276-4) EMERSON (test code = EMERSON) Systems Testing Laboratory Technician ID - PIAYA L Lab Interpretation (test Normal code = 93144-5) [facility] HospitalFerritin2022-01-14 18:20:35 Test Item Value Reference Range Interpretation Comments Ferritin (test code = 36.01 ng/mL 5.00-275.00 2276-4) EMERSON (test code = EMERSON) Systems Testing Laboratory Technician ID - PIMARIELA L Lab Interpretation (test Normal code = 06777-9) [facility] HospitalFERRITIN2022-01-14 18:20:35 Test Item Value Reference Range Interpretation Comments FERRITIN (BEAKER) (test code = 36.01 ng/mL 5.00-275.00 361) Systems Testing Laboratory Technician ID - KAYLEEN Ardon, TIBC, % sat. (without ferritin)2021-09-01 18:00:19 Test Item Value Reference Range Interpretation Comments Iron (test code = 2498-4) 14.0 ug/dL 40.0-160.0 L TIBC (test code = 2500-7) 355 ug/dL 250-450 Iron % Saturation (test 4 % 20-55 L code = 2502-3) EMERSON (test code = EMERSON) Systems Testing Laboratory Technician ID - KAYLEEN L Lab Interpretation (test Abnormal code = 79903-5) [facility] HospitalIron, TIBC, % sat. (without ferritin)2021-09-01 18:00:19 Test Item Value Reference Range Interpretation Comments Iron (test code = 2498-4) 14.0 ug/dL 40.0-160.0 L TIBC (test code = 2500-7) 355 ug/dL 250-450 Iron % Saturation (test 4 % 20-55 L code = 2502-3) EMERSON (test code = EMERSON) Systems Testing Laboratory Technician ID - KAYLEEN L Lab Interpretation (test Abnormal code = 13065-4) [facility] HospitalIro, TIBC, % sat. (without ferritin)2021-09-01 18:00:19 Test Item Value Reference Range Interpretation Comments Iron (test code = 2498-4) 14.0 ug/dL 40.0-160.0 L TIBC (test code = 2500-7) 355 ug/dL 250-450 Iron % Saturation (test 4 % 20-55 L code = 2502-3) EMERSON (test code = EMERSON) Systems Testing Laboratory Technician ID - PIAYA L Lab Interpretation (test Abnormal code = 54560-5) [facility], % SAT. (WITHOUT FERRITIN)2021-09-01 18:00:19 Test Item Value Reference Range Interpretation Comments IRON (BEAKER) (test code = 547) 14.0 ug/dL 40.0-160.0 L TOTAL IRON BINDING CAPACITY 355 ug/dL 250-450 (BEAKER) (test code = 769) IRON % SATURATION (2) (BEAKER) 4 % 20-55 L (test code = 2590) Systems Testing Laboratory Technician ID - PIAYA L2D Echo W/Doppler(CW/PW/Color)2021-09-01 17:31:53Ejection FractionSLEH ECHO [facility]2D Echo W/Doppler(CW/PW/Color)2021-09-01 17:31:53Ejection FractionSLEH ECHO [facility] Echo W/Doppler(CW/PW/Color) 2021-09-01 17:31:53[facility], ESOPH, SWALLOW FUNCTION, WITH CINE OR [id number] 12:11:00Reason for exam:->TIMED BARIUIM SWALLOW at 1, 5 and 10 minutes with tablet for dysphagia w/ neg EGD [facility] ISREAL : 1945 Sex: MFINAL REPORT Timed barium swallow CLINICAL HISTORY: TIMED BARIUM SWALLOW at 1, 5 and 10 minutes with tablet for dysphagia w/ neg EGD IMPRESSION: A barium pill is given to the patient to swallow. It stayed at the GE junction at 1, 5, 10 and 20 minutes. It passed into the stomach at25 minutes. Fluoro time: None Number of images: 8 Signed: Arin Espanaeport Verified Date/Time: 09/01/2021 12:11:08 Reading Location: [facility] C013X Ortho Consult Reading Room HEPATIC FUNCTION [id number] 07:23:40 Test Item Value Reference Range Interpretation [...] (test code = 45 U/L 6-55 347) Systems Testing Laboratory Technician ID - PIMARIELA [id number] 07:23:39 Test Item Value Reference Range Interpretation Comments MAGNESIUM (BEAKER) (test code = 2.3 mg/dL 1.6-2.6 627) Systems Testing Laboratory Technician ID - KAYLEEN [id number] 07:23:39 Test Item Value Reference Range Interpretation Comments PHOSPHORUS (BEAKER) (test code = 3.8 mg/dL 2.3-4.7 604) Systems Testing Laboratory Technician ID - PIMARIELA LBASIC METABOLIC [id number] 07:23:38 Test Item Value Reference Range Interpretation [...] S NOT APPLICABLE FOR DIALYSIS PATIEN TS. Systems Testing Laboratory Technician ID - PIAYA LTSH/Free T4 If [id number] 06:55:05 Test Item Value Reference Range Interpretation Comments TSH (test code = 1.112 See_Comment [Automated 19519-8) message] The system which generated this result transmit dante reference range : 0.350 - 4.940 uIU/mL. The reference range was not used to interpret this result as normal/abnormal . EMERSON (test code = EMERSON) Systems Testing Laboratory Technician ID - PIAYA L Lab Interpretation Normal (test code = 94605-9) [facility]TS[facility]Free T4 If [id number] 06:55:05 Test Item Value Reference Range Interpretation Comments TSH (test code = 1.112 See_Comment [Automated 57740-9) message] The system which generated this result transmit dante reference range : 0.350 - 4.940 uIU/mL. The reference range was not used to interpret this result as normal/abnormal . EMERSON (test code = EMERSON) Systems Testing Laboratory Technician ID - PIAYA L Lab Interpretation Normal (test code = 04152-8) [facility] T4 If [id number] 06:55:05 Test Item Value Reference Range Interpretation Comments TSH (test code = 1.112 See_Comment [Automated 94303-8) message] The system which generated this result transmit dante reference range : 0.350 - 4.940 uIU/mL. The reference range was not used to interpret this result as normal/abnormal . EMERSON (test code = EMERSON) Systems Testing Laboratory Technician ID - PIAYA L Lab Interpretation Normal (test code = 88209-8) [facility]TS[facility]FREE T4 IF [id number] 06:55:05 Test Item Value Reference Range Interpretation Comments THYROID STIMULATING HORMONE 1.112 uIU/mL 0.350-4.940 (BEAKER) (test code = 772) Systems Testing Laboratory Technician ID - PIAYA LPROTHROMBIN TIME/[id number] 06:24:18 Test Item Value Reference Range Interpretation Comments PROTIME (BEAKER) 17.9 seconds 11.9-14.2 H (test code = 759) INR (BEAKER) (test 1.51 See_Comment [Automat ed message] code = 370) The system [employer] generated this result transmitted ref erence range: <=5.90. The reference range was not used to int erpret this result as normal/abnormal . RECOMMENDED COUMADIN/WARFARIN INR THERAPY RANGESSTANDARD DOSE: 2.0 - 3.0 Includes: PROPHYLAXIS for venous thrombosis, systemic embolization; TREATMENT for venous thrombosis and/or pulmonary embolus.HIGH RISK: Target INR is 2.5-3.5 for patients with mechanical heart valves.CBC W/PLT COUNT & AUTO [id number] 06:22:43 Test Item Value Reference Range Interpretation [...] SARS-Co V-2 (test code = target nucleic 79181-5) acids are not detected in thi s [...] revoked sooner. Fact Sheet for Healthcare Providers: https://www.[employer]/Documents/Xp ert%20Xpress%20SAR S%20CoV-2/Fact%20S heets/302-3802%20S ARS-COV-2%20HEALTH CARE%20PROVIDERS%2 0FACT%20SHEET.pdf Fact Sheet for Healthcare Patients: https://www.[employer]/Documents/Xp ert%20Xpress%20SAR S%20CoV-2/Fact%20S heets/302-3801%20S ARS-COV-2%20PATIEN T%20FACT%20SHEET.p df Lab Interpretation Normal (test code = 99701-3) [facility]2021-08-31 15:45:18 Test Item Value Reference Interpretation Comments Range SARS-COV2/RT-PCR Negative Negative The SARS-Co V-2 (test code = target nucleic 58618-5) acids are not detected in thi s [...] revoked sooner. Fact Sheet for Healthcare Providers: https://www.[employer]/Documents/Xp ert%20Xpress%20SAR S%20CoV-2/Fact%20S heets/302-3802%20S ARS-COV-2%20HEALTH CARE%20PROVIDERS%2 0FACT%20SHEET.pdf Fact Sheet for Healthcare Patients: https://www.[employer]/Documents/Xp ert%20Xpress%20SAR S%20CoV-2/Fact%20S heets/302-3801%20S ARS-COV-2%20PATIEN T%20FACT%20SHEET.p df Lab Interpretation Normal (test code = 89781-0) [facility]Symptomatic ONLY)2021-08-31 15:45:18 Test Item Value Reference Interpretation Comments Range SARS-COV2/RT-PCR Negative Negative The SARS-Co V-2 (test code = target nucleic 86781-8) acids are not detected in thi s [...] om SARS-CoV-2 in a nasopharyngeal swab specimen [facility] from individual s suspected of COVID-19 by [...] revoked sooner. Fact Sheet for Healthcare Providers: https://www.[employer]/Documents/Xp ert%20Xpress%20SAR S%20CoV-2/Fact%20S heets/302-3802%20S ARS-COV-2%20HEALTH CARE%20PROVIDERS%2 0FACT%20SHEET.pdf Fact Sheet for Healthcare Patients: https://www.[employer]/Documents/Xp ert%20Xpress%20SAR S%20CoV-2/Fact%20S heets/302-3801%20S ARS-COV-2%20PATIEN T%20FACT%20SHEET.p df Lab Interpretation Normal (test code = 61597-7) [facility])2021-08-31 15:45:18 Test Item Value Reference Range Interpretation Comments SARS-COV2/RT-PCR Negative Negative The SARS-Co V-2 target (test code = nucleic acids a re not 6754902) detected in thi s specimen. Negative result [...] sooner. Fact Sheet for Healthcare Providers: https://www.[employer]/Documents/Xpert%20Xpress%20SARS%20CoV-2/Fact%20Sheets/302-3802%36YBFL-BGW-0%20 HEALTHCARE%20PROVIDERS%20FACT%20SHEET.pdf Fact Sheet for Healthcare Patients: https://www.[employer]/Documents/Xpert%20Xp ress%20SARS%20CoV-2/Fact%20Sheets/302-3801%42YLCW-TUM-7%20PATIENT%20FACT%20SHEET .pdfHIGH SENSITIVITY TROPONIN [id number] 13:23:34 Test Item Value Reference Range Interpretation Comments HIGH SENSITIVITY 10 pg/ml See_Comment [Automated message] TROPONIN I (test code = The system which 1364925) generated this result transmitted ref erence range: <=35. Th e reference range was not used to int erpret this result as normal/abnormal . Systems Testing Laboratory Technician ID - ADMINThe CHILD WELFARE MANAGER STAT High Sensitivity Troponin-I results should be used in conjunction with other diagnostic information such as ECG, clinical observations and information, and patientsymptoms to aid in the diagnosis of [place]. [id number] 13:16:30 Test Item Value Reference Range Interpretation Comments PARTIAL THROMBOPLASTIN TIME 41.6 seconds 22.5-36.0 H (BEAKER) (test code = 760) BASIC METABOLIC [id number] 13:16:09 Test Item Value Reference Range Interpretation [...] S NOT APPLICABLE FOR DIALYSIS PATIEN TS. Systems Testing Laboratory Technician ID - ADMINPROTHROMBIN TIME/[id number] 13:15:51 Test Item Value Reference Range Interpretation Comments PROTIME (BEAKER) 21.2 seconds 11.9-14.2 H (test code = 759) INR (BEAKER) (test 1.86 See_Comment [Automat ed message] code = 370) The system [employer] generated this result transmitted ref erence range: <=5.90. The reference range was not used to int erpret this result as normal/abnormal . RECOMMENDED COUMADIN/WARFARIN INR THERAPY RANGESSTANDARD DOSE: 2.0 - 3.0 Includes: PROPHYLAXIS for venous thrombosis, systemic embolization; TREATMENT for venous thrombosis and/or pulmonary embolus.HIGH RISK: Target INR is 2.5-3.5 for patients with mechanical heart valves.LACTIC ACID, [id number] 13:12:46 Test Item Value Reference Range Interpretation Comments LACTATE BLOOD VENOUS (2) (BEAKER) 1.73 mmol/L 0.50-2.20 (test code = 2872) Systems Testing Laboratory Technician ID - ADMINCBC W/PLT COUNT & AUTO [id number] 12:54:05 Test Item Value Reference Range Interpretation [...] PERCENT (BEAKER) (test code = 2801) [place], [id number] 11:34:00Gastrografin studyReason for exam:->POST-OP PROBLEMpost endocscopy 1 month ago [facility] : 1945 Sex: [...] [place] Verified Date/Time: 07/04/2021 11:34:49 Reading Location: [facility] C0[facility] Ortho Consult Reading Room BASIC METABOLIC [id number] 04:39:36 Test Item Value Reference Range Interpretation [...] S NOT APPLICABLE FOR DIALYSIS PATIEN TS. Systems Testing Laboratory Technician ID - MARZENA MSARS-COV2/RT-PCR ([facility])2021-07-03 17:50:45 Test Item Value Reference Range Interpretation Comments SARS-COV2/RT-PCR Negative Negative The SARS-Co V-2 target (test code = nucleic acids a re not 0339720) detected in thi s specimen. Negative result [...] revoked sooner. Fact Sheet for Healthcare Providers: https://www.[employer] m/Documents/Xpert%20Xpress%20SARS%20CoV-2/Fact%20Sheets/3023802%44NPPQ-DAF-0%20 HEALTHCARE%20PROVIDERS%20FACT%20SHEET.pdf Fact Sheet for Healthcare Patients: https://www.[employer]/Documents/Xpert%20Xp ress%20SARS%20CoV-2/Fact%20Sheets/302-3801%40BNYN-BWJ-2%20PATIENT%20FACT%20SHEET .pdfD-dimer, [id number] 17:04:25 Test Item Value Reference Range Interpretation Comments D-Dimer, Quant (test <0.27 See_Comment [Autom ated code = 85280-1) message] The system which generated this result [...] range. Lab Interpretation Normal (test code = 70809-7) [facility] HospitalD-dimer, mbcptfckqgjc8379-56-08 17:04:25 Test Item Value Reference Range Interpretation Comments D-Dimer, Quant (test <0.27 See_Comment [Autom ated code = 11782-1) message] The system which generated this result [...] range. Lab Interpretation Normal (test code = 99258-8) [facility] HospitalD-[id number] 17:04:25 Test Item Value Reference Range Interpretation [...] of thrombosis is within 95-100% range.BLOOD GAS, [id number] 16:22:57 Test Item Value Reference Range Interpretation [...] code = 1819) 21.0 RAD, CHEST, 2 [id number] 14:40:00Reason for exam:->CHEST PAIN since endoscopy a month agopost endocscopy 1 month ago [facility] : 1945 Sex: MFINAL REPORT EXAM: Chest one view COMPARISON: May 15, 2021 CLINICAL HISTORY: Chest pain FINDINGS: Minimal blunting of bilateral posterior costophrenic sulci are noted which may represent small effusions. The cardiac size remains enlarged. There is no evidence of pulmonary consolidation or pneumothorax. The regional osseous structures are unremarkable. Signed: Romeo Ackerman Verified Date/Time: 07/03/2021 14:40:03 [id number] 14:12:25 Test Item Value Reference Range Interpretation Comments Lipase (test code = 3040-3) 22 U/L 8-78 EMERSON (test code = EMERSON) Systems Testing Laboratory Technician ID - DB Lab Interpretation (test Normal code = 66708-7) [facility]2021-[facility] 14:12:25 Test Item Value Reference Range Interpretation Comments Lipase (test code = 3040-3) 22 U/L 8-78 EMERSON (test code = EMERSON) Systems Testing Laboratory Technician ID - DB Lab Interpretation (test Normal code = 77691-2) [facility]LIPASE2021-[facility] 14:12:25 Test Item Value Reference Range Interpretation Comments LIPASE (BEAKER) (test code = 749) 22 U/L 8-78 Systems Testing Laboratory Technician ID - DBCOMPREHENSIVE METABOLIC [id number] 14:12:24 Test Item Value Reference Range Interpretation [...] S NOT APPLICABLE FOR DIALYSIS PATIEN TS. Systems Testing Laboratory Technician ID - DBHIGH SENSITIVITY TROPONIN [id number] 14:10:43 Test Item Value Reference Range Interpretation Comments HIGH SENSITIVITY 7 pg/ml See_Comment [Automated message] TROPONIN I (test code = The system which 9454737) generated this result transmitted ref erence range: <=35. Th e reference range was not used to interpr et this result as normal/abnormal . Systems Testing Laboratory Technician ID - RMThe CHILD WELFARE MANAGER STAT High Sensitivity Troponin-I results should be used in conjunctionwith other diagnostic information such as ECG, clinical observations and information, and patient symptoms to aid in the diagnosis of TN.B-TYPE NATRIURETIC FACTOR (BNP)2021-07-03 14:09:26 Test Item Value Reference Range Interpretation Comments B-TYPE NATRIURETIC PEPTIDE (BEAKER) 515 pg/mL 0-100 H (test code = 700) Systems Testing Laboratory Technician ID - RMCBC W/PLT COUNT & AUTO [id number] 13:39:07 Test Item Value Reference Range Interpretation [...] (BEAKER) (test code = 2801) HEMOGLOBIN AND [id number] 05:07:16 Test Item Value Reference Range Interpretation Comments HEMOGLOBIN (BEAKER) (test code = 7.9 GM/DL 13.7-17.5 L 410) HEMATOCRIT (BEAKER) (test code = 26.4 % 40.1-51.0 L 411) Systems Testing Laboratory Technician ID - 6000HEMOGLOBIN AND [id number] 18:44:57 Test Item Value Reference Range Interpretation Comments HEMOGLOBIN (BEAKER) (test code = 8.7 GM/DL 13.7-17.5 L 410) HEMATOCRIT (BEAKER) (test code = 29.7 % 40.1-51.0 L 411) Systems Testing Laboratory Technician ID - 6000HEMOGLOBIN AND [id number] 11:29:37 Test Item Value Reference Range Interpretation Comments HEMOGLOBIN (BEAKER) (test code = 8.3 GM/DL 13.7-17.5 L 410) HEMATOCRIT (BEAKER) (test code = 28.5 % 40.1-51.0 L 411) Systems Testing Laboratory Technician ID - 6000HEMOGLOBIN AND GWSABXXYBB8677-12-72 04:51:37 Test Item Value Reference Range Interpretation Comments HEMOGLOBIN (BEAKER) (test code = 7.9 GM/DL 13.7-17.5 L 410) HEMATOCRIT (BEAKER) (test code = 26.9 % 40.1-51.0 L 411) Systems Testing Laboratory Technician ID - 6000HEMOGLOBIN AND [id number] 16:42:26 Test Item Value Reference Range Interpretation Comments HEMOGLOBIN (BEAKER) (test code = 8.6 GM/DL 13.7-17.5 L 410) HEMATOCRIT (BEAKER) (test code = 29.4 % 40.1-51.0 L 411) Systems Testing Laboratory Technician ID - 6000BASIC METABOLIC [id number] 09:04:40 Test Item Value Reference Range Interpretation [...] S NOT APPLICABLE FOR DIALYSIS PATIEN TS. Systems Testing Laboratory Technician ID - ROSIANGHEMOGLOBIN AND [id number] 08:41:52 Test Item Value Reference Range Interpretation Comments HEMOGLOBIN (BEAKER) (test code = 7.6 GM/DL 13.7-17.5 L 410) HEMATOCRIT (BEAKER) (test code = 26.5 % 40.1-51.0 L 411) Systems Testing Laboratory Technician ID - 6000SARS-COV2/RT-PCR ([facility])2021-05-23 19:59:55 Test Item Value Reference Range Interpretation Comments SARS-COV2/RT-PCR Negative Negative The SARS-Co V-2 target (test code = nucleic acids a re not 3195437) detected in thi s specimen. Negative result [...] revoked sooner. Fact Sheet for Healthcare Providers: https://www.[employer]/Documents/Xpert%20Xpress%20SARS%20CoV-2/Fact%20Sheets/3023802%98HZSE-YXQ-0%20 HEALTHCARE%20PROVIDERS%20FACT%20SHEET.pdf Fact Sheet for Healthcare Patients: https://www.[employer]/Documents/Xpert%20Xp ress%20SARS%20CoV-2/Fact%20Sheets/3023801%56AEMU-ATO-8%20PATIENT%20FACT%20SHEET .pdfCOMPREHENSIVE METABOLIC [id number] 17:17:21 Test Item Value Reference Range Interpretation [...] S NOT APPLICABLE FOR DIALYSIS PATIEN TS. Systems Testing Laboratory Technician ID - LUDA [id number] 17:17:21 Test Item Value Reference Range Interpretation Comments LIPASE (BEAKER) (test code = 749) 31 U/L 8-78 Systems Testing Laboratory Technician ID - LUDA FPT/WLCU6957-18-49 16:55:15 Test Item Value Reference Range Interpretation [...] mechanical heart valves.CBC W/PLT COUNT & AUTO [id number] 16:37:06 Test Item Value Reference Range Interpretation [...] (BEAKER) (test code = 2801) BASIC METABOLIC [id number] 04:38:30 Test Item Value Reference Range Interpretation [...] S NOT APPLICABLE FOR DIALYSIS PATIEN TS. Systems Testing Laboratory Technician ID - DBCBC W/PLT COUNT & AUTO [id number] 04:21:40 Test Item Value Reference Range Interpretation [...] (BEAKER) (test code = 2801) BASIC METABOLIC [id number] 07:03:04 Test Item Value Reference Range Interpretation [...] S NOT APPLICABLE FOR DIALYSIS PATIEN TS. Systems Testing Laboratory Technician ID - PIAYA LCBC (HEMOGRAM ONLY)2021-05-17 [...] (BEAKER) (test code = 413) HEMOGLOBIN AND [id number] 20:18:40 Test Item Value Reference Range Interpretation Comments HEMOGLOBIN (BEAKER) (test code = 7.7 GM/DL 13.7-17.5 L 410) HEMATOCRIT (BEAKER) (test code = 25.7 % 40.1-51.0 L 411) Systems Testing Laboratory Technician ID - 6000BASIC METABOLIC [id number] 06:32:43 Test Item Value Reference Range Interpretation [...] S NOT APPLICABLE FOR DIALYSIS PATIEN TS. Systems Testing Laboratory Technician ID - MARZENA MCBC W/PLT COUNT & AUTO [id number] 06:09:12 Test Item Value Reference Range Interpretation [...] (BEAKER) (test code = 2801) HEMOGLOBIN AND [id number] 00:13:44 Test Item Value Reference Range Interpretation Comments HEMOGLOBIN (BEAKER) (test code = 8.0 GM/DL 13.7-17.5 L 410) HEMATOCRIT (BEAKER) (test code = 28.1 % 40.1-51.0 L 411) Systems Testing Laboratory Technician ID - 6000SARS-COV2/RT-PCR ([facility])2021-05-15 18:07:21 Test Item Value Reference Range Interpretation Comments SARS-COV2/RT-PCR Negative Negative The SARS-Co V-2 target (test code = nucleic acids a re not 7722066) detected in thi s specimen. Negative result [...] revoked sooner. Fact Sheet for Healthcare Providers: https://www.[employer] m/Documents/Xpert%20Xpress%20SARS%20CoV-2/Fact%20Sheets/302-3802%71JYDH-SYR-5%20 HEALTHCARE%20PROVIDERS%20FACT%20SHEET.pdf Fact Sheet for Healthcare Patients: https://www.[employer]/Documents/Xpert%20Xp ress%20SARS%20CoV-2/Fact%20Sheets/302-3801%28PBGP-SKR-0%20PATIENT%20FACT%20SHEET .pdfHIGH SENSITIVITY TROPONIN [id number] 15:44:19 Test Item Value Reference Range Interpretation Comments HIGH SENSITIVITY 6 pg/ml See_Comment [Automated message] TROPONIN I (test code = The system which 6762637) generated this result transmitted ref erence range: <=35. Th e reference range was not used to interpr et this result as normal/abnormal . Systems Testing Laboratory Technician ID - DBThe CHILD WELFARE MANAGER STAT High Sensitivity Troponin-I results should be used in conjunctionwith other diagnostic information such as ECG, clinical observations and information, and patient symptoms to aid in the diagnosis of [place].[id number] 15:36:53 Test Item Value Reference Range Interpretation Comments MAGNESIUM (BEAKER) (test code = 2.1 mg/dL 1.6-2.6 627) Systems Testing Laboratory Technician ID - LXNLNTHPOJVY2336-91-07 15:36:53 Test Item Value Reference Range Interpretation Comments PHOSPHORUS (BEAKER) (test code = 3.3 mg/dL 2.3-4.7 604) Systems Testing Laboratory Technician ID - DBCOMPREHENSIVE METABOLIC [id number] 15:36:52 Test Item Value Reference Range Interpretation [...] S NOT APPLICABLE FOR DIALYSIS PATIEN TS. Systems Testing Laboratory Technician ID - DBCBC W/PLT COUNT & AUTO [id number] 15:12:30 Test Item Value Reference Range Interpretation [...] = 2801) RAD, CHEST, 1 VIEW, NON [id number] 13:55:00Reason for exam:->MELENAReason for exam:->GENERAL ILLNESSReason for exam:->GENERALIZED WEAKNESS, NOT ASSOCIATED WITH EXTREMITIESShould this be performed at the bedside?->Yes [facility] 1945 Sex: MFINAL REPORT INDICATION: MELENAGENERAL ILLNESSGENERALIZED WEAKNESS, NOT ASSOCIATED WITH EXTREMITIES COMPARISON: 05/01/2021 TECHNIQUE: Single frontal view of the chest. FINDINGS: Lungs and pleura: Clear lungs. No effusion.Heart and mediastinum: Normal heart size. Unremarkable mediastinal contours.Osseous structures: No acute abnormality.Other: None. IMPRESSION: No acute intrathoracic abnormality. Signed: Gaby Corderoeplauri Verified Date/Time: 05/15/2021 13:55:04 Reading Location: [facility] Radiology Reading Room MAGNESIUM 2021-05-10 07:19:33 Test Item Value Reference Range Interpretation Comments MAGNESIUM (BEAKER) (test code = 2.4 mg/dL 1.6-2.6 627) Systems Testing Laboratory Technician ID - PIAYA LBASIC METABOLIC [id number] 07:19:32 Test Item Value Reference Range Interpretation [...] S NOT APPLICABLE FOR DIALYSIS PATIEN TS. Systems Testing Laboratory Technician ID - PIAYA LCBC W/PLT COUNT & AUTO [id number] 06:34:22 Test Item Value Reference Range Interpretation [...] (test code = 2801) UREA NITROGEN, RANDOM [id number] 17:46:02 Test Item Value Reference Range Interpretation Comments UREA NITROGEN URINE (BEAKER) (test 404 mg/dL code = 538) Reference Range: No NormalsOperator ID - BSSODIUM, RANDOM [id number] 17:46:01 Test Item Value Reference Range Interpretation Comments SODIUM URINE (BEAKER) (test code = 101 meq/L 243) Reference Range: No NormalsOperator ID - BSCREATININE, RANDOM [id number] 17:46:00 Test Item Value Reference Range Interpretation Comments CREATININE URINE (BEAKER) (test 61.7 mg/dL code = 375) Reference Range: No NormalsOperator ID - BSURINALYSIS WITH MICROSCOPIC IF [id number] 16:41:11 Test Item Value Reference Range Interpretation [...] = 463) SOURCE(BEAKER) (test code = 2795) Systems Testing Laboratory Technician ID - [auto]BLOOD [id number] 11:01:01 Test Item Value Reference Range Interpretation Comments CULTURE (BEAKER) (test No growth in 5 days code = 1095) BLOOD [id number] 11:01:01 Test Item Value Reference Range Interpretation Comments CULTURE (BEAKER) (test No growth in 5 days code = 1095) The specimen volume collected for this blood culture was below the optimum (10 mL per bottle or 20 mL total). Use of lower volumes may adversely affect recovery and/or detection times of some organisms.[id number] 05:38:27 Test Item Value Reference Range Interpretation Comments MAGNESIUM (BEAKER) (test code = 2.3 mg/dL 1.6-2.6 627) Systems Testing Laboratory Technician ID - PIAYA LBASIC METABOLIC [id number] 05:38:26 Test Item Value Reference Range Interpretation [...] S NOT APPLICABLE FOR DIALYSIS PATIEN TS. Systems Testing Laboratory Technician ID - PIAYA LPROTHROMBIN TIME/[id number] 05:23:25 Test Item Value Reference Range Interpretation Comments PROTIME (BEAKER) 16.9 seconds 11.9-14.2 H (test code = 759) INR (BEAKER) (test 1.39 See_Comment [Automat ed message] code = 370) The system [employer] generated this result transmitted ref erence range: <=5.90. The reference range was not used to int erpret this result as normal/abnormal . RECOMMENDED COUMADIN/WARFARIN INR THERAPY RANGESSTANDARD DOSE: 2.0 - 3.0 Includes: PROPHYLAXIS for venous thrombosis, systemic embolization; TREATMENT for venous thrombosis and/or pulmonary embolus.HIGH RISK: Target INR is 2.5-3.5 for patients with mechanical heart valves.CBC W/PLT COUNT & AUTO [id number] 05:22:39 Test Item Value Reference Range Interpretation [...] (BEAKER) (test code = 2801) COMPREHENSIVE METABOLIC [id number] 16:17:38 Test Item Value Reference Range Interpretation [...] S NOT APPLICABLE FOR DIALYSIS PATIEN TS. Systems Testing Laboratory Technician ID - DBSARS-COV2/RT-PCR ([facility])2021-05-08 12:32:16 Test Item Value Reference Range Interpretation Comments SARS-COV2/RT-PCR (test Negative Not Detected, Negative, code = 6787583) See external report for linked test SARS-COV-[address] [facility] (test code = 1154106) Negative result for this test determines that [...] of the Act.Fact Sheet for Healthcare Prov iders:https://www.D1G.[employer]/sites/default/files/product/documents/Fact_Sheet_HC _Rrxktmkfq_Adix_ULWX-XrP-9.pdfFact Sheet for Healthcare Patients:https://www.D1G.[employer]/sites/default/files/product/docume nts/Rmos_Xknlr_Lupivfny_Ytiq_YRRC-BgC-3.pdfPerforming Laboratory:[place] [address], [place] [address]VLF (HEMOGRAM ONLY) 2021-05-08 06:41:47 Test Item Value [...] code = 413) MYOCARD IMAGING, MULTI, PHARM, [id number] 13:41:00Unlisted Reason for Exam - Click Yes and Enter Reason Below->No [facility] CENTERName: CADEN GILES : 1945 Sex: MFINAL REPORT PROCEDURE: Rest/Stress MYOCARDIAL PERFUSION SPECT with regadenoson\\XA9\\ CPT CODE: 18519 INDICATION: Chest pain PROTOCOL: 10.6 mCi of [...] (BEAKER) (test code = 413) BASIC METABOLIC [id number] 06:10:10 Test Item Value Reference Range Interpretation [...] S NOT APPLICABLE FOR DIALYSIS PATIEN TS. Systems Testing Laboratory Technician ID - SHANE GCBC (HEMOGRAM ONLY)2021-05-06 [...] 0-0 H (BEAKER) (test code = 413) [id number] 17:04:33 Test Item Value Reference Range Interpretation Comments PARTIAL THROMBOPLASTIN TIME 75.5 seconds 22.5-36.0 H (BEAKER) (test code = 760) [id number] 08:48:29 Test Item Value Reference Range Interpretation Comments PARTIAL THROMBOPLASTIN TIME 39.1 seconds 22.5-36.0 H (BEAKER) (test code = 760) [id number] 07:02:01 Test Item Value Reference Range Interpretation [...] (BEAKER) (test code = 413) BASIC METABOLIC [id number] 06:36:45 Test Item Value Reference Range Interpretation [...] S NOT APPLICABLE FOR DIALYSIS PATIEN TS. Systems Testing Laboratory Technician ID - SHANE [id number] 22:11:03 Test Item Value Reference Range Interpretation Comments PARTIAL THROMBOPLASTIN TIME 88.2 seconds 22.5-36.0 H (BEAKER) (test code = 760) PERIPHERAL BLOOD SMEAR - PATHOLOGIST [id number] 18:22:51 Test Item Value Reference Range Interpretation Comments PERIPHERAL SMR Microcytic hypochromic REVIEW (BEAKER) anemia with marked (test code = 0570) anisopoikilocytosis and polychromasia, consistent with history of LEESA. Leukocytosis with predominantly mature granulocytes. No blasts seen. Adequate platelets with unremarkable morphology. GCLT-[id number]-1 Andreina Andersonkarma Schmidt, 112 (BEAKER) (test M.D code = [...] (BEAKER) (test code 2+ moderate = 966) [id number] 12:13:05 Test Item Value Reference Range Interpretation Comments PARTIAL THROMBOPLASTIN TIME 55.6 seconds 22.5-36.0 H (BEAKER) (test code = 760) TISSUE [id number] 11:53:42Surgical Pathology Report Case: [id number] Authorizing Provider: Yolanda Lyle MD Collected: 05/03/2021 10:38 AM Ordering Location: [address] Received: 05/03/2021 02:25 PM Service Pathologist: Ciro Diamond MD Specimen: Polyp, Colon - Right/Ascending, x3 PART A RIGHT ASCENDING COLON POLYPX3, POLYPECTOMY:TUBULAR ADENOMA Signing Pathologist Direct Phone Line: [phone] signed by Ciro Diamond MD on 05/04/2021 at 11:53 [id number] colonReceived in formalin labeled the patient's name, accession number and "ascending colon polyp" are multiple chavez soft tissue fragments measuring up to 0.5 cm in greatest dimension which are filtered and submitted in toto in A1.URSULA Martell, HT (ASCP)performedBaylNorthridge Hospital Medical [facility], Department of Pathology, [address] [place] [address], [facility], [facility] of Pathology, [address] [place] [address], [facility]xon[facility], Department of Pathology, [address] [place] [address], [id number] 11:13:03 Test Item Value Reference Range Interpretation Comments PARTIAL THROMBOPLASTIN TIME > seconds 22.5-36.0 HH (BEAKER) (test code = 760) URINALYSIS [id number] 10:30:34 Test Item Value Reference Range Interpretation Comments RBC UA (BEAKER) (test code = 519) 3 /HPF WBC UA (BEAKER) (test code = 520) 2 /HPF BACTERIA (BEAKER) (test code = None Seen 517) MUCUS (BEAKER) (test code = 1574) Moderate CRYSTALS, URINE (BEAKER) (test None Seen code = 1521) AMORPHOUS CRYSTALS (BEAKER) (test Occasional code = 1584) Systems Testing Laboratory Technician ID - techURINALYSIS WITH MICROSCOPIC IF [id number] 10:23:22 Test Item Value Reference Range Interpretation [...] = 463) SOURCE(BEAKER) (test code = 2795) Systems Testing Laboratory Technician ID - [auto]BASIC METABOLIC [id number] 06:55:55 Test Item Value Reference Range Interpretation [...] S NOT APPLICABLE FOR DIALYSIS PATIEN TS. Systems Testing Laboratory Technician ID - SHANE GCBC (HEMOGRAM ONLY)2021-05-04 [...] 0-0 (BEAKER) (test code = 413) BLOOD [id number] 18:01:00 Test Item Value Reference Range Interpretation Comments CULTURE (BEAKER) (test No growth in 5 days code = 1095) BLOOD [id number] 18:00:59 Test Item Value Reference Range Interpretation Comments CULTURE (BEAKER) (test No growth in 5 days code = 1095) TISSUE [id number] 17:23:09Surgical Pathology Report Case: [id number] Authorizing Provider: Yolanda Lyle MD Collected: 05/02/2021 03:08 PM Ordering Location: [address] Received: 05/03/2021 09:22 AM Service Pathologist: [...] INVASIVE CARCINOMA. Signing Pathologist Direct Phone Line: [phone] signed by Ciro Diamond MD on 05/03/2021 at 5:23 [id number], [id number] iron deficiency anemiaA. Duode num tissue, rule out celiacB. Biopsy, gastric tissueC. [...] ranging each measuring 0.1 cm in greatest dime nsion. The specimen is submitted in toto following [...] evaluated Immunohistochemistry technical testing was performed at [facility], Pathology Laboratory where itwas developed and its performance characteristics were determined. It has not been cleared or approved by the U.S. Food and Drug Administration. The FDA has determined that such clearance or approval is not necessary. The test is used for clinical purposes. It should not be regarded as investigationalor for research. This laboratory is certified under the Clinical Laboratory Improvement Amendments of 1988 (CLIA-88) as qualified to perform high complexity clinical laboratory testing.[facility], Department of Pathology, [address] [place] [address], [facility], Department of Pathology, [address] [place] [address], Tel [phone], Department of Pathology, [address] [place] [address], RGTIT METABOLIC PANEL 2021-05-03 06:21:43 Test Item Value [...] S NOT APPLICABLE FOR DIALYSIS PATIEN TS. Systems Testing Laboratory Technician ID - MARZENA MTSH/FREE T4 IF [id number] 05:55:30 Test Item Value Reference Range Interpretation Comments THYROID STIMULATING HORMONE 0.869 uIU/mL 0.350-4.940 (BEAKER) (test code = 772) Systems Testing Laboratory Technician ID - MARZENA MB-TYPE NATRIURETIC FACTOR (BNP)2021-05-03 05:32:14 Test Item Value Reference Range Interpretation Comments B-TYPE NATRIURETIC PEPTIDE (BEAKER) 452 pg/mL 0-100 H (test code = 700) Systems Testing Laboratory Technician ID - MARZENA MCBC (HEMOGRAM ONLY)2021-05-03 [...] CONCENTRATION Adequate (CELLAVISION)(BEAKER) (test code = 3438) Systems Testing Laboratory Technician ID - Segovia [place] comments: Slide comments:CBC W/PLT COUNT & AUTO [id number] 11:59:17 Test Item Value Reference Range Interpretation [...] (BEAKER) (test code = 413) BASIC METABOLIC [id number] 09:20:42 Test Item Value Reference Range Interpretation [...] S NOT APPLICABLE FOR DIALYSIS PATIEN TS. Systems Testing Laboratory Technician ID - KEARA [id number] 09:05:40 Test Item Value Reference Range Interpretation [...] 2.5-3.5 for patients with mechanical heart valves.SARS-COV2/RT-PCR ([facility]) 2021-05-01 12:34:25 Test Item Value Reference Range Interpretation Comments SARS-COV2/RT-PCR (test Negative Not Detected, Negative, code = 4157433) See external report for linked test SARS-COV-[address] [facility] (test code = 7911913) Negative result for this test determines that [...] of the Act.Fact Sheet for Healthcare Prov iders:https://www.[employer]/sites/default/files/product/documents/Fact_Sheet_HC _Jxzrldaoj_Mbya_ZBRT-KhY-7.pdfFact Sheet for Healthcare Patients:https://www.D1G.[employer]/sites/default/files/product/docume nts/Djln_Etnog_Mmcjfqxm_Aoqj_ASVH-ThH-4.pdfPerforming Laboratory:[facility], [place] [address]SDG, CHEST, 1 VIEW, NON [id number] 09:29:00Reason for exam:->shortness of breathShould this be performed at the bedside?->Yes [facility] 1945 Sex: MFINAL REPORT Chest AP portable History provided: Shortness of breath Heart size magnified by projection. Lungs are clear and vascularity normal. Signed: Reji Jefferseport Verified Date/Time: 05/01/2021 09:29:27 [facility] Reading [facility] CBC (HEMOGRAM ONLY)2021-05-01 [...] (BEAKER) (test code = 413) BASIC METABOLIC [id number] 06:24:43 Test Item Value Reference Range Interpretation [...] S NOT APPLICABLE FOR DIALYSIS PATIEN TS. Systems Testing Laboratory Technician ID - PIAYA LBASIC METABOLIC [id number] 15:17:17 Test Item Value Reference Range Interpretation [...] S NOT APPLICABLE FOR DIALYSIS PATIEN TS. Systems Testing Laboratory Technician ID - DBCBC W/PLT COUNT & AUTO [id number] 14:42:15 Test Item Value Reference Range Interpretation [...] (BEAKER) (test code = 2801) HEMOGLOBIN AND [id number] 14:41:31 Test Item Value Reference Range Interpretation Comments HEMOGLOBIN (BEAKER) (test code = 9.7 GM/DL 13.7-17.5 L 410) HEMATOCRIT (BEAKER) (test code = 33.4 % 40.1-51.0 L 411) Systems Testing Laboratory Technician ID - [id number], [id number] 02:24:00Unlisted Reason for Exam - Click Yes and Enter Reason Below->NoWill this procedure require oral co ntrast?->No[facility] : 1945 [...] nonobstructing left renal stone. Signed: Aman Todd [facility] Verified Date/Time: 04/30/2021 02:24:34 HEMOGLOBIN [id number] 09:35:28 Test Item Value Reference Range Interpretation Comments HEMOGLOBIN A1C (BEAKER) (test code = 6.6 % 4.3-6.1 H 368) HEPATIC FUNCTION [id number] 05:59:52 Test Item Value Reference Range Interpretation [...] (test code = 38 U/L 6-55 347) Systems Testing Laboratory Technician ID - MARZENA [id number] 05:59:50 Test Item Value Reference Range Interpretation Comments MAGNESIUM (BEAKER) (test code = 2.9 mg/dL 1.6-2.6 H 627) Systems Testing Laboratory Technician ID - MARZENA MLIPID [id number] 05:59:50 Test Item Value Reference Range Interpretation [...] Borderline 130-159 High 160-189 Very High >=190 Systems Testing Laboratory Technician ID - MARZENA MBASIC METABOLIC [id number] 05:59:49 Test Item Value Reference Range Interpretation [...] S NOT APPLICABLE FOR DIALYSIS PATIEN TS. Systems Testing Laboratory Technician ID - MARZENA MB-TYPE NATRIURETIC FACTOR (BNP)2021-04-29 05:49:20 Test Item Value Reference Range Interpretation Comments B-TYPE NATRIURETIC PEPTIDE (BEAKER) 329 pg/mL 0-100 H (test code = 700) Systems Testing Laboratory Technician ID - DBPROTHROMBIN [id number] 05:43:23 Test Item Value Reference Range Interpretation Comments PROTIME (BEAKER) 15.3 seconds 11.9-14.2 H (test code = 759) INR (BEAKER) (test 1.23 See_Comment [Automat ed message] code = 370) The system [employer] generated this result transmitted ref erence range: <=5.90. The reference range was not used to int erpret this result as normal/abnormal . RECOMMENDED COUMADIN/WARFARIN INR THERAPY RANGESSTANDARD DOSE: 2.0 - 3.0 Includes: PROPHYLAXIS for venous thrombosis, systemic embolization; TREATMENT for venous thrombosis and/or pulmonary embolus.HIGH RISK: Target INR is 2.5-3.5 for patients with mechanical heart valves.CBC W/PLT COUNT & AUTO [id number] 05:29:39 Test Item Value Reference Range Interpretation [...] (BEAKER) (test code = 2801) BASIC METABOLIC [id number] 20:29:00 Test Item Value Reference Range Interpretation [...] S NOT APPLICABLE FOR DIALYSIS PATIEN TS. Systems Testing Laboratory Technician ID - [id number] 16:56:00 Test Item Value Reference Range Interpretation Comments FERRITIN (BEAKER) (test code = 13.77 ng/mL 5.00-275.00 361) Systems Testing Laboratory Technician ID - DBHIGH SENSITIVITY TROPONIN [id number] 16:42:00 Test Item Value Reference Range Interpretation Comments HIGH SENSITIVITY 13 pg/ml See_Comment [Automated message] TROPONIN I (test code = The system which [id number]) generated this result transmitted ref erence range: <=35. Th e reference range was not used to int erpret this result as normal/abnormal . Systems Testing Laboratory Technician ID - DBThe CHILD WELFARE MANAGER STAT High Sensitivity Troponin-I results should be used in conjunctionwith other diagnostic information such as ECG, clinical observations and information, and patient symptoms to aid in the diagnosis of TN.HIGH SENSITIVITY TROPONIN [id number] 16:41:00 Test Item Value Reference Range Interpretation Comments HIGH SENSITIVITY 15 pg/ml See_Comment [Automated message] TROPONIN I (test code = The system which [id number]) generated this result transmitted ref erence range: <=35. Th e reference range was not used to int erpret this result as normal/abnormal . Systems Testing Laboratory Technician ID - DBThe CHILD WELFARE MANAGER STAT High Sensitivity Troponin-I results should be used in conjunctionwith other diagnostic information such as ECG, clinical observations and information, and patient symptoms to aid in the diagnosis of TN.IRON, TIBC, % SAT. (WITHOUT FERRITIN)2021-04-28 16:35:00 Test Item Value Reference Range Interpretation Comments IRON (BEAKER) (test code = 547) 22.0 ug/dL 40.0-160.0 L TOTAL IRON BINDING CAPACITY 473 ug/dL 250-450 H (BEAKER) (test code = 769) IRON % SATURATION (2) (BEAKER) 5 % 20-55 L (test code = 2590) Systems Testing Laboratory Technician ID - DBHEMOGLOBIN AND [id number] 15:56:00 Test Item Value Reference Range Interpretation Comments HEMOGLOBIN (BEAKER) (test code = 9.2 GM/DL 13.7-17.5 L 410) HEMATOCRIT (BEAKER) (test code = 30.6 % 40.1-51.0 L 411) Systems Testing Laboratory Technician ID - [id number]
[2022-07-11] MEDS ORDERED: ONDANSETRON 4 MG/2 ML VIAL ONE (18:36)
[2022-07-11] MEDS ORDERED: MORPHINE 2 MG/ML SYR ONE (18:36)
[2022-07-11 19:34] LABS: Absolute Lymphocytes (CBC) 1.9 K/uL (0.7-4.9); Hematocrit 27.3 % (39.6-49.0); Lymphocytes % 25.8 % (15.3-44.8); MCV 69.4 fL (80-100); MPV 7.4 fL (7.6-11.3); RBC Red Blood Cell Count 3.93 M/uL (4.33-5.43)
[2022-07-11 19:55] LABS: Albumin 3.3 g/dL (3.4-5.0); Bilirubin Total 0.3 mg/dL (0.2-1.0); Potassium 4.1 mmol/L (3.5-5.1); Protein, Total 6.8 g/dL (6.4-8.2)
--- NOTE | 2022-07-11 20:07 | RAD REPORT ---
EXAM DESCRIPTION: [facility]Stone Protocol - 07/11/2022 7:57 pm CLINICAL HISTORY: abd pain COMPARISON: Abdomen Pelvis W Contrast dated 08/23/2021; Abdomen Pelvis W Contrast dated 07/23/2021; Abdomen Pelvis W Contrast dated 03/06/2021; Abdomen Pelvis W Contrast dated 10/14/2018 TECHNIQUE: CT of the abdomen and pelvis was performed. All CT scans are performed using dose optimization technique as appropriate and may include automated exposure control or mA/KV adjustment according to patient size. FINDINGS: Lower chest: Cardiomegaly. Mitral annuloplasty. Coronary artery calcifications. Liver: No acute abnormality or suspicious lesions. Biliary: No biliary ductal dilatation. Stomach: No significant focal abnormality. Duodenum: No significant focal abnormality. Pancreas: No significant abnormality. Spleen: No significant abnormality. Adrenal: No suspicious lesions. Kidney/ureter: No hydronephrosis. No renal calculi. Left renal lesion which is likely a cyst. Retroperitoneum: No retroperitoneal adenopathy. Vascular: No aneurysm. Bowel: Mild inflammatory changes along the proximal sigmoid colon.. Normal appendix. Peritoneum: No ascites or free air. Bladder: Grossly unremarkable. Reproductive: No adnexal masses. Bones: No acute fracture. Other: n/a IMPRESSION: Non perforated sigmoid diverticulitis. No abscess.
--- NOTE | 2022-07-11 20:28 | ER ---
Nurse's Notes [facility] Name: Oleg Giles Age: 76 yrs Sex: Male : 1945 Arrival Date: 07/11/2022 Time: 17:56 Bed 19 Private MD: Diagnosis: Diverticulitis of intestine, part unspecified, without perforation or abscess without bleeding Presentation: 07/11 18:17 Chief complaint: Patient states: LLQ abd pain for 2 days with some nausea. Coronavirus ll1 screen: Vaccine status: Patient reports receiving the 2nd dose of the covid vaccine. Client denies travel out of the [place] in the last 14 days. At this time, the client does not indicate any symptoms associated with coronavirus-19. Ebola Screen: Patient denies travel to an Ebola-affected area in the 21 days before illness onset. Initial Sepsis Screen: Does the patient meet any 2 criteria? No. Patient's initial sepsis screen is negative. Does the patient have a suspected source of infection? Yes: Acute abdominal pain. Risk Assessment: Do you want to hurt yourself or someone else? Patient reports no desire to harm self or others. Onset of symptoms was July 10, 2022. 18:17 Method Of Arrival: Ambulatory ll1 18:17 Acuity: ALEXANDREA 3 ll1 Triage Assessment: 18:18 General: Appears uncomfortable, Behavior is cooperative, appropriate for age. Pain: ll1 Complains of pain in abdomen Pain currently is 6 out of 10 on a pain scale. Quality of pain is described as. GI: Reports lower abdominal pain, nausea. 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 - Social history:: Smoking status: Patient denies any tobacco usage or history of. Screenin:19 Abuse screen: Denies threats or abuse. Denies injuries from another. Nutritional kc6 screening: No deficits noted. Tuberculosis screening: No symptoms or risk factors identified. Fall Risk No fall in past 12 months (0 pts). Secondary diagnosis (15 points) CVA, IV access (20 points). Ambulatory Aid- None/Bed Rest/Nurse Assist (0 pts). Gait- Normal/Bed Rest/Wheelchair (0 pts) Mental Status- Oriented to own ability (0 pts). Total Orellana Fall Scale indicates Low Risk Score (25-44 pts). Assessment: 19:10 General: Appears in no apparent distress. comfortable, Behavior is calm, cooperative, kc6 appropriate for age. Pain: Complains of pain in left lower quadrant Pain does not radiate. Pain currently is 5 out of 10 on a pain scale. Quality of pain is described as sharp, Pain began gradually, Is continuous, Alleviated by nothing. Aggravated by eating, drinking. Neuro: Lainez Agitation-Sedation Scale (RASS): 0 - Alert and Calm Level of Consciousness is awake, alert, obeys commands, Oriented to person, place, time, situation, Appropriate for age. Cardiovascular: Heart tones S1 S2 present Capillary refill < 3 seconds. Respiratory: Airway is patent Trachea midline Respiratory effort is even, unlabored, Respiratory pattern is regular, symmetrical, Breath sounds are clear bilaterally. GI: Abdomen is flat, non-distended, Bowel sounds present X 4 quads. Abd is soft X 4 quads Abdomen is tender to palpation X 4 quads. Reports lower abdominal pain, nausea. : No signs and/or symptoms were reported regarding the genitourinary system. EENT: No signs and/or symptoms were reported regarding the EENT system. Derm: No signs and/or symptoms reported regarding the dermatologic system. Skin is intact, Skin is pink, warm \T\ dry. Musculoskeletal: No signs and/or symptoms reported regarding the musculoskeletal system. Circulation, motion, and sensation intact. Capillary refill < 3 seconds, Range of motion: intact in all extremities. 20:59 Reassessment: Patient and/or family updated on plan of care and expected duration. Pain ll3 level reassessed. Patient is alert, oriented x 3, equal unlabored respirations, skin warm/dry/pink. States pain has improved, states pain is 3/10. Vital Signs: 18:17 BP 162 / 76; Pulse 65; Resp 18; Temp 98.3; Pulse Ox 100% ; Weight 89.36 kg; Height 5 ll1 ft. 6 in. (167.64 cm); Pain 6/10; 20:59 BP 162 / 64; Pulse 52; Resp 18; Pulse Ox 100% on R/A; ll3 22:01 BP 165 / 61; Pulse 52; Resp 17; Pulse Ox 100% on R/A; ll3 18:17 Body Mass Index 31.80 (89.36 kg, 167.64 cm) ll1 ED Course: 17:56 Patient arrived in ED. mr 18:01 Belem Stubbs FNP-C is PHCP. kb 18:01 Robin Dotson MD is Attending Physician. kb 18:18 Triage completed. ll1 18:18 Arm band placed on Patient placed in an exam room, on a stretcher. ll1 18:29 Tiff Hernández, DI is Primary Nurse. kc6 19:06 Inserted saline lock: 22 gauge in right antecubital area, using aseptic technique. jd3 Blood collected. 19:51 PHCP role handed off by Belem Stubbs FNP-C [facility] 19:51 Trena Cheema FNP is PHCP. [facility] 19:58 CT Stone Protocol In Process Unspecified. EDMS 20:26 Kojo Calhoun MD is Hospitalizing Provider. 7 21:00 Patient has correct armband on for positive identification. Bed in low position. Call 3 light in reach. Side rails up X 1. Adult w/ patient. 22:01 No provider procedures requiring assistance completed. Patient admitted, IV remains in ll3 place. Administered Medications: 19:27 Drug: morphine 2 mg Route: IVP; Infused Over: 4 mins; Site: right antecubital; ll3 21:10 Follow up: Response: No adverse reaction; Pain is decreased ll3 19:27 Drug: Zofran (Ondansetron) 4 mg Route: IVP; Site: right antecubital; ll3 21:11 Follow up: Response: No adverse reaction ll3 20:41 Drug: Flagyl (metroNIDAZOLE) 500 mg Volume: 100 ml; Route: IVPB; Rate: 200 ml/hr; ll3 Infused Over: 30 mins; Site: right antecubital; 21:10 Follow up: Response: No adverse reaction; IV Status: Completed infusion; IV Intake: ll3 100ml 21:10 Drug: Cipro (ciprofloxacin) 400 mg Volume: 200 ml; Route: IVPB; Infused Over: 60 mins; ll3 Site: right antecubital; 22:24 Follow up: Response: No adverse reaction; IV Status: Completed infusion; IV Intake: ll3 200ml Medication: 22:01 VIS not applicable for this client. ll3 Intake: 21:10 IV: 100ml; Total: 100ml. ll3 22:24 IV: 200ml; Total: 300ml. 3 Outcome: 20:27 Decision to Hospitalize by Provider. debbie 22:01 Admitted to ICU accompanied by nurse, via wheelchair, room 7, with chart, Report called 3 to DI Willis 22:01 Condition: stable 22:01 Instructed on the need for admit. 22:24 Patient left the ED. 3 Signatures: Dispatcher [employer] EDMS Belem Stubbs, TABATHA-C BOAT DECKHAND-Lyric Barnes mr CarrasquilloJose Luis RN RN bartolod3 Monica Wood RN RN ll1 Arvin Moore, RN RN efrain3 Trena Cheema FNP BOAT DECKHAND 7 Tiff Hernández, RN RN kc6
--- NOTE | 2022-07-11 20:28 | EDPHYS ---
Physician Documentation [facility] Name: Oleg Giles Age: 76 yrs Sex: Male : 1945 Arrival Date: 07/11/2022 Time: 17:56 Bed 19 Private MD: ED Physician Robin Dotson HPI: 07/11 19:13 This 76 yrs old Male presents to ER via Ambulatory with complaints of kb Abdominal Pain. 19:13 The patient presents with abdominal pain in the left lower quadrant. The patient has kb not recently seen a physician. 19:13 Onset: The symptoms/episode began/occurred 2 day(s) ago. The symptoms do not radiate. kb Associated signs and symptoms: Pertinent positives: nausea, Pertinent negatives: diarrhea, fever, vomiting. The symptoms are described as constant. Modifying factors: The symptoms are alleviated by nothing, the symptoms are aggravated by nothing. Severity of pain: At its worst the pain was moderate in the emergency department the pain is unchanged. The patient has not experienced similar symptoms in the past. 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 - Social history:: Smoking status: Patient denies any tobacco usage or history of. ROS: 19:12 Constitutional: Negative for fever, chills, and weight loss. kb 19:12 Abdomen/GI: Positive for abdominal pain, nausea, Negative for vomiting, diarrhea. 19:12 All other systems are negative. Exam: 19:12 Constitutional: This is a well developed, well nourished patient who is awake, alert, kb and in no acute distress. Head/Face: Normocephalic, atraumatic. ENT: Moist Mucous membranes Cardiovascular: Regular rate and rhythm with a normal S1 and S2. No gallops, murmurs, or rubs. No pulse deficits. Respiratory: Respirations even and unlabored. No increased work of breathing. Talking in full sentences Skin: Warm, dry with normal turgor. Normal color. MS/ Extremity: Pulses equal, no cyanosis. Neurovascular intact. Full, normal range of motion. Neuro: Awake and alert, GCS 15, oriented to person, place, time, and situation. Moves all extremities. Normal gait. Psych: Awake, alert, with orientation to person, place and time. Behavior, mood, and affect are within normal limits. 19:12 Abdomen/GI: Inspection: abdomen appears normal, Bowel sounds: normal, in all quadrants, Palpation: soft, in all quadrants, moderate abdominal tenderness, in the left lower quadrant. Vital Signs: 18:17 BP 162 / 76; Pulse 65; Resp 18; Temp 98.3; Pulse Ox 100% ; Weight 89.36 kg; Height 5 ll1 ft. 6 in. (167.64 cm); Pain 6/10; 20:59 BP 162 / 64; Pulse 52; Resp 18; Pulse Ox 100% on R/A; ll3 22:01 BP 165 / 61; Pulse 52; Resp 17; Pulse Ox 100% on R/A; ll3 18:17 Body Mass Index 31.80 (89.36 kg, 167.64 cm) ll1 MDM: 18:27 Patient medically screened. kb 19:13 Data reviewed: vital signs, nurses notes. Data interpreted: Pulse oximetry: on room air kb is 100 %. Interpretation: normal. 19:48 Transition of care: After a detail discussion of the patient's case, care is kb transferred to Trena Cheema [facility]. 20:30 Differential diagnosis: diverticulitis, Ureterolithiasis, urinary tract infection, jh7 Colitis. Counseling: I had a detailed discussion with the patient and/or guardian regarding: the historical points, exam findings, and any diagnostic results supporting the discharge/admit diagnosis, the need for further work-up and treatment in the hospital. 07/11 18:32 Order name: CBC with Diff; Complete Time: 21:23 kb 07/11 18:32 Order name: CMP; Complete Time: 20:13 kb 07/11 18:32 Order name: Lipase; Complete Time: 20:13 kb 07/11 18:32 Order name: CT Stone Protocol; Complete Time: 20:13 kb 07/11 21:05 Order name: CBC Smear Scan; Complete Time: 21:23 EDMS 07/11 18:32 Order name: IV Saline Lock; Complete Time: 19:17 kb 07/11 18:32 Order name: Labs collected and sent; Complete Time: 19:17 kb Administered Medications: 19:27 Drug: morphine 2 mg Route: IVP; Infused Over: 4 mins; Site: right antecubital; ll3 21:10 Follow up: Response: No adverse reaction; Pain is decreased ll3 19:27 Drug: Zofran (Ondansetron) 4 mg Route: IVP; Site: right antecubital; ll3 21:11 Follow up: Response: No adverse reaction ll3 20:41 Drug: Flagyl (metroNIDAZOLE) 500 mg Volume: 100 ml; Route: IVPB; Rate: 200 ml/hr; ll3 Infused Over: 30 mins; Site: right antecubital; 21:10 Follow up: Response: No adverse reaction; IV Status: Completed infusion; IV Intake: ll3 100ml 21:10 Drug: Cipro (ciprofloxacin) 400 mg Volume: 200 ml; Route: IVPB; Infused Over: 60 mins; ll3 Site: right antecubital; 22:24 Follow up: Response: No adverse reaction; IV Status: Completed infusion; IV Intake: ll3 200ml Disposition Summary: 07/11/22 20:27 Hospitalization Ordered Hospitalization Status: Inpatient Admission [facility] Provider: Kojo Calhoun [facility] Condition: Stable [facility] Problem: new [facility] Symptoms: are unchanged [facility] Bed/Room Type: [place] [id number] Location: Intensive Care Unit(07/11/22 21:53) [facility] Room Assignment: -(07/11/22 21:53) [facility] Diagnosis - Diverticulitis of intestine, part unspecified, without perforation or abscess [facility] without bleeding Forms: - Medication Reconciliation Form [facility] - SBAR form [facility] Addendum: 07/14/2022 20:19 Co-signature as Attending Physician, Robin Dotson MD I agree with the assessment and r t plan of care. Signatures: Dispatcher [employer] Belem Ortega, POLYSOM TECH-C TABATHA-Marina Cali RN RN eb1 Monica Wood RN RN ll1 Arvin Moore RN RN ll3 Trena Cheema FNP FNP 7 Romana Dunn PA-C PAPatrickC sb4 Robin Dotson MD MD rt Corrections: (The following items were deleted from the chart) 07/11 2153 20:27 Telemetry/MedSurg (Inpatient) jh7 eb1 20:27 7 eb1
[2022-07-11] MEDS ORDERED: CIPROFLOXACIN 400mg IV 400 MG/200 ML BAG IV ONE (20:33)
[2022-07-11] MEDS ORDERED: METRONIDAZOLE 500mg IVPB 500 MG/100 ML BAG IV ONE (20:33)
[2022-07-11 21:04] LABS: Anisocytosis 1+; Blood Morphology Comment NOTED (NOT SEEN); Platelet Estimate ADEQ; Poikilocytosis 2+; White Blood Cell Scan OK (OK)
--- NOTE | 2022-07-11 21:28 | P.HP ---
Certification for Inpatient Patient admitted to: Inpatient With expected LOS: >2 Midnights Patient will require the following post-hospital care: None Practitioner: I am a practitioner with admitting privileges, knowledge of patient current condition, hospital course, and medical plan of care. Services: Services provided to patient in accordance with Admission requirements found in Title 42 Section 412.3 of the Code of Federal Regulations <Romana Dunn - Last Filed: 07/12/22 03:37> Patient History Date of Service: 07/12/22 Primary Care Provider: Charlee Reason for admission: Diverticulitis History of Present Illness: Patient is a 76-year-old male with past medical history significant for A. fib on warfarin, iron deficiency anemia, history of CVA, diastolic CHF, and hypertension who presented to the ED with complaints of left lower quadrant abdominal pain. Patient reports that the pain has been occurring for about 2 days now and is associated with nausea. He denies vomiting, diarrhea, or blood in his stool. Labs are significant for anemia with hemoglobin of 8.4 but no leukocytosis or electrolyte abnormalities. Urine is negative. CT abdomen pelvis showed nonperforated sigmoid diverticulitis without abscess. Vital signs are stable. No concern for sepsis at this time He was given morphine, Zofran, Cipro, and Flagyl in the ED. Patient is admitted for further management. Home medications list reviewed: Yes - Past Medical/Surgical History Diabetic: No -: Atrial fibrillation on chronic anticoagulation therapy -: Hypertension -: History of CVA -: Hyperlipidemia -: Anemia of chronic disease with iron deficiency -: GERD -: Diastolic CHF -: Incision and drainage right thigh -: cataract sx carol -: HEART VALVE REPLACEMENT Psychosocial/ Personal History: Patient lives at home. He is - Family History Father -: Diabetes, Stroke - Social History Smoking Status: Never smoker Alcohol use: No CD- Drugs: No Caffeine use: Yes Place of Residence: Home <Romana Dunn - Last Filed: 07/12/22 03:37> Date of Service: 07/12/22 <Kojo Calhoun - Last Filed: 07/12/22 15:38> Allergies No Known Allergies Allergy (Verified 07/09/21 05:35) Home Medications: RX: Atorvastatin Calcium 20 mg PO DAILY 06/26/21 RX: Aspirin 81 mg PO DAILY 03/10/22 RX: Losartan Potassium [Cozaar] 25 mg PO DAILY 03/10/22 RX: Warfarin Sodium [Coumadin*] 5 mg PO BEDTIME 03/10/22 Review of Systems Gastrointestinal: Nausea, Abdominal Pain <Romana Dunn - Last Filed: 07/12/22 03:37> Physical Examination - Physical Exam General: Alert, In no apparent distress HEENT: Atraumatic, PERRLA, EOMI, Sclerae nonicteric Neck: Supple, 2+ carotid pulse no bruit, No LAD, Without JVD or thyroid ab normality Respiratory: Clear to auscultation bilaterally, Normal air movement Cardiovascular: Regular rate/rhythm, Normal S1 S2 Gastrointestinal: Soft and benign, Non-distended, Tenderness Musculoskeletal: No tenderness Integumentary: No rashes Neurological: Normal gait, Normal speech, Normal strength at 5/5 x4 extr, Normal tone, Normal affect - Studies Laboratory Data (last 24 hrs) 07/11/22 19:03: Sodium 136, Potassium 4.1, BUN 18, Creatinine 1.14, Glucose 108 H, Total Bilirubin 0.3, AST 11 L, ALT 28, Alkaline Phosphatase 76, Lipase 157 07/11/22 19:03: WBC 7.20, Hgb 8.4 L, Hct 27.3 L, Plt Count 359 <ShaunRomana - Last Filed: 07/12/22 03:37> - Studies Laboratory Data (last 24 hrs) 07/11/22 19:03: Sodium 136, Potassium 4.1, BUN 18, Creatinine 1.14, Glucose 108 H, Total Bilirubin 0.3, AST 11 L, ALT 28, Alkaline Phosphatase 76, Lipase 157 07/11/22 19:03: WBC 7.20, Hgb 8.4 L, Hct 27.3 L, Plt Count 359 <Kojo Calhoun - Last Filed: 07/12/22 15:38> Assessment and Plan - Problems (Diagnosis) (1) Sigmoid diverticulitis Current Visit: Yes Status: Acute (2) CHF (congestive heart failure) Current Visit: Yes Status: Chronic Qualifiers: Heart failure type: diastolic Heart failure chronicity: chronic Qualified Code(s): I50.32 - Chronic diastolic (congestive) heart failure (3) Anemia of chronic disease Current Visit: Yes Status: Chronic (4) Chronic atrial fibrillation Current Visit: Yes Status: Chronic (5) HLD (hyperlipidemia) Current Visit: Yes Status: Chronic Qualifiers: Hyperlipidemia type: unspecified Qualified Code(s): E78.5 - Hyperlipidemia, unspecified (6) Hypertension Current Visit: Yes Status: Chronic Qualifiers: Hypertension type: primary hypertension Qualified Code(s): I10 - Essential (primary) hypertension - Plan Patient is admitted to [facility], but is in ICU as overflow. Continue Zosyn for sigmoid diverticulitis. No perforation or abscess noted on CT. Supportive measures with IV hydration, pain medications, and antiemetics. Anemia appears around his baseline per chart review. No active bleeding. Monitor CBC and transfuse if hgb drops below 7. Clear liquid diet, advance as tolerated. Monitor and replete electrolytes per protocol. Reconcile and continue home medications. Full code. Discharge Plan: Home Plan to discharge in: 48 Hours - Advance Directives Does patient have a Living Will: Yes Does patient have a Durable POA for Healthcare: No - Code Status/Comfort Care Code Status Assessed: Yes (Full) Critical Care: No Time Spent Managing Pts Care (In Minutes): 50 <Romana Dunn - Last Filed: 07/12/22 03:37> Physician Review: Patient Assessed, Agree with Above Assessment and Plan <Kojo Calhoun - Last Filed: 07/12/22 15:38>
[2022-07-11] MEDS ORDERED: ONDANSETRON 4 MG/2 ML VIAL IV PRN (22:04)
[2022-07-11] MEDS ORDERED: MORPHINE 4 MG/ML SYR IV PRN (22:04)
[2022-07-11] MEDS ORDERED: ACETAMINOPHEN 500 MG TAB PO PRN (22:04)
[2022-07-11] MEDS ORDERED: ACETAMINOPHEN 325 MG TABLET PO PRN (22:09)
[2022-07-11] MEDS: NA CHLORIDE 0.9% 1,000 ML IV SCH (22:40)
[2022-07-11 22:55] VITALS: BMI 31.8
[2022-07-11 23:49] LABS: Specific Gravity 1.005 (1.005-1.030); Urine Bilirubin NEGATIVE (Negative); Urine Blood Negative (Negative); Urine Clarity Clear (Clear); Urine Color Colorless (Yellow); Urine Glucose NEGATIVE (Negative); Urine Protein NEGATIVE (Negative); Urine Urobilinogen Normal (Normal)
[2022-07-12] MEDS: PIPER TAZO 3.375 GM in NA CHLORIDE 0.9% 100 ML IV SCH ×3 (00:09→16:19)
[2022-07-12 05:24] LABS: Absolute Lymphocytes (CBC) 1.5 K/uL (0.7-4.9); Hematocrit 26.9 % (39.6-49.0); Lymphocytes % 28.2 % (15.3-44.8); MPV 7.7 fL (7.6-11.3); RBC Red Blood Cell Count 3.86 M/uL (4.33-5.43)
[2022-07-12 05:26] LABS: MCV 69.7 fL (80-100)
[2022-07-12 05:42] LABS: Magnesium 2.4 mg/dL (1.8-2.4); Potassium 3.8 mmol/L (3.5-5.1); Thyroid Stimulating Hormone 1.85 uIU/mL (0.360-3.740)
[2022-07-12] MEDS: NA CHLORIDE 0.9% 1,000 ML IV SCH (14:18)
--- NOTE | 2022-07-12 15:40 | P.PN ---
Subjective Date of Service: 07/12/22 Primary Care Provider: Charlee Chief Complaint: Diverticulitis No acute events overnight. He reports that his abdominal pain is gradually improving. He grades it a 5/10 in severity this morning. He reports passing flatus, but no bowel movement. He denies nausea/vomiting. Review of Systems 10-point ROS is otherwise unremarkable Gastrointestinal: Abdominal Pain Physical Examination - Vital Signs Temperature: 97 F Blood Pressure: 147/48 Pulse: 55 Respirations: 17 Pulse Ox (%): 99 - Physical Exam General: Alert, In no apparent distress, Oriented x3 HEENT: Atraumatic, PERRLA, Mucous membr. moist/pink, EOMI, Sclerae nonicteric Neck: Supple, JVD not distended Respiratory: Clear to auscultation bilaterally, Normal air movement Cardiovascular: No edema, Regular rate/rhythm, Normal S1 S2, No gallops, No rubs, No murmurs Gastrointestinal: Normal bowel sounds, Soft and benign, Non-distended, No rebound, No guarding, Tenderness (LLQ) Musculoskeletal: No clubbing Integumentary: No rashes Neurological: Normal speech, Cranial nerves 3-12 intact, Normal affect - Studies Laboratory Data (last 24 hrs) 07/11/22 19:03: Sodium 136, Potassium 4.1, BUN 18, Creatinine 1.14, Glucose 108 H, Total Bilirubin 0.3, AST 11 L, ALT 28, Alkaline Phosphatase 76, Lipase 157 07/11/22 19:03: WBC 7.20, Hgb 8.4 L, Hct 27.3 L, Plt Count 359 Assessment And Plan - Plan # Acute Uncomplicated Sigmoid Diverticulitis - CT abdomen/pelvis = "non perforated sigmoid diverticulitis. No abscess." - Continue piperacillin-tazobactam - Lactated Ringers' @ 75 mL/hr - On clear liquid diet - advance as tolerated - Pain control - He reports that his last colonoscopy was ~4-5 years ago, and he believes the results were "normal" - I have advised that he have a repeat colonoscopy in about 4 weeks to evaluate for an underlying colonic malignancy - he verbalized understanding # Chronic Atrial Fibrillation - Currently rate-controlled without medications - Continue home warfarin # History of Cerebrovascular Accident # Chronic Compensated Diastolic Congestive Heart Failure # Hypertension # Dyslipidemia - Continue home aspirin, atorvastatin, losartan Kojo Calhoun M.D.
[2022-07-12] MEDS: Ringers Lactate 1,000 ML IV SCH (16:19)
[2022-07-12 17:51] VITALS: O2SAT 98
[2022-07-12] MEDS ORDERED: WARFARIN SODIUM 5 MG TAB PO SCH (21:00)
[2022-07-12 22:07] LABS: Protime INR 2.02
[2022-07-13] MEDS: PIPER TAZO 3.375 GM in NA CHLORIDE 0.9% 100 ML IV SCH ×2 (01:23→08:08)
[2022-07-13 03:51] LABS: Absolute Lymphocytes (CBC) 1.5 K/uL (0.7-4.9); Hematocrit 28.5 % (39.6-49.0); Lymphocytes % 27.9 % (15.3-44.8); MCV 69.4 fL (80-100); MPV 7.4 fL (7.6-11.3)
[2022-07-13 03:53] LABS: Protime INR 1.95
[2022-07-13 04:10] LABS: Potassium 4.3 mmol/L (3.5-5.1)
[2022-07-13] MEDS: Ringers Lactate 1,000 ML IV SCH (05:36)
--- NOTE | 2022-07-13 08:37 | P.DS ---
Admission Date: 07/11/22 Discharge Date: 07/13/22 Primary Care Provider: Charlee Disposition: ROUTINE DISCHARGE Discharge Condition: GOOD Reason for Admission: Diverticulitis Hospital Course: DIAGNOSES: # Acute Uncomplicated Sigmoid Diverticulitis # Chronic Atrial Fibrillation # History of Cerebrovascular Accident # Chronic Compensated Diastolic Congestive Heart Failure # Hypertension # Dyslipidemia HOSPITAL COURSE: Mr. Oleg Giles is a pleasant 76-year-old male with a past medical history significant for chronic atrial fibrillation, history of cerebrovascular accident, chronic diastolic heart failure, hypertension, dyslipidemia who was admitted to the [facility] on 07/11/2022 for abdominal pain. He was admitted to the Medicine service. Upon further evaluation, his CT abdomen revealed, "non perforated sigmoid diverticulitis. No abscess." He was treated with IV antibiotics and IV fluids, with significant improvement of his symptoms. He was started on a clear liquid diet and gradually advanced to regular diet. He tolerated the diet without any abdominal pain, nausea, or vomiting. He states that he has been passing flatus. He stated that his last colonoscopy was about 4-5 years ago, and to his knowledge the results were "normal." Given his significant clinical improvement, he was deemed stable for discharge. He was given 10 additional days of antibiotics and advised to follow-up with Gastroenterology for colonoscopy in about 4 weeks to evaluate for a potential underlying colonic malignancy. He verbalized understanding. On 07/13/2022, he was seen on morning rounds and deemed medically stable for discharge. He was discharged with instructions to schedule follow-up appointments with his PCP (Dr. Deshpande) and with Gastroenterology (Dr. Desai). He was provided a prescription for amoxicillinclavulanate. He and his daughter were given the opportunity to ask questions and reported no further questions. Furthermore, all questions were answered to the best of my ability. A copy of this discharge summary will be sent to the above providers to facilitate continuity of care. Today, I personally spent 25 minutes on his case, of which greater than 50% of the time was spent in patient education, counseling, and coordination of care as described above. - Physical Exam General: Alert, In no apparent distress, Oriented x3 HEENT: Atraumatic, PERRLA, Mucous membr. moist/pink, EOMI, Sclerae nonicteric Neck: Supple, JVD not distended Respiratory: Clear to auscultation bilaterally, Normal air movement Cardiovascular: No edema, Regular rate/rhythm, Normal S1 S2, No gallops, No rubs, No murmurs Gastrointestinal: Normal bowel sounds, Soft and benign, Non-distended, No rebound, No guarding, No tenderness Musculoskeletal: No clubbing Integumentary: No rashes Neurological: Normal speech, Cranial nerves 3-12 intact, Normal affect Vital Signs/Physical Exam: Temp Pulse Resp BP Pulse Ox 98 F 57 16 116/53 L 99 07/13/22 04:00 07/13/22 04:00 07/13/22 04:00 07/13/22 04:00 07/13/22 04:00 Laboratory Data at Discharge: WBC 5.40 K/uL (4.3-10.9) 07/13/22 03:31 Hgb 8.8 g/dL (13.6-17.9) L 07/13/22 03:31 Hct 28.5 % (39.6-49.0) L 07/13/22 03:31 Plt Count 363 K/uL (152-406) D 07/13/22 03:31 PT 21.4 SECONDS (9.5-12.5) H 07/13/22 03:31 INR 1.95 07/13/22 03:31 Sodium 140 mmol/L (136-145) 07/13/22 03:31 Potassium 4.3 mmol/L (3.5-5.1) D 07/13/22 03:31 BUN 13 mg/dL (7-18) 07/13/22 03:31 Creatinine 1.04 mg/dL (0.55-1.3) 07/13/22 03:31 Glucose 89 mg/dL (74-106) 07/13/22 03:31 Phosphorus 3.0 mg/dL (2.5-4.9) 07/12/22 04:35 Magnesium 2.4 mg/dL (1.8-2.4) 07/12/22 04:35 Total Bilirubin 0.3 mg/dL (0.2-1.0) 07/11/22 19:03 AST 11 U/L (15-37) L 07/11/22 19:03 ALT 28 U/L (12-78) 07/11/22 19:03 Alkaline Phosphatase 76 U/L (45-117) 07/11/22 19:03 Triglycerides 83 mg/dL (<150) 07/12/22 04:35 Cholesterol 115 mg/dL (<200) 07/12/22 04:35 HDL Cholesterol 48 mg/dL (40-60) 07/12/22 04:35 Cholesterol/HDL Ratio 2.40 07/12/22 04:35 Lipase 157 U/L (73-393) 07/11/22 19:03 Home Medications: RX: Atorvastatin Calcium 20 mg PO DAILY 06/26/21 RX: Aspirin 81 mg PO DAILY 03/10/22 RX: Losartan Potassium [Cozaar] 25 mg PO DAILY 03/10/22 RX: Warfarin Sodium [Coumadin*] 5 mg PO BEDTIME 03/10/22 Amox/Clavulanate [Augmentin 875-125 Tab] 875 mg PO BID 10 Days #20 tab 07/13/22 New Medications: Amox/Clavulanate [Augmentin 875-125 Tab] 875 mg PO BID 10 Days #20 tab Physician Discharge Instructions: 1. Please call and schedule a follow-up appointment with your PCP (Dr. Deshpande) in 3-5 days 2. Please call and schedule a follow-up appointment with Gastroenterology (Dr. Desai) in 5-7 days - As we discussed, you will need to schedule a colonoscopy in about 4 weeks to evaluate for any signs of colon cancer Diet: AHA Activity: Ad zheng Followup: Willy Deshpande MD [Primary Care Provider] - Juma Desai MD [ACTIVE - CAN ADMIT] - Time spent managing pt's care (in minutes): 25
[2022-07-13] MEDS ORDERED: HOME MED 1 EA UNK (Losartan Potassium [Cozaar] 25 MG Tablet) PO SCH (09:00)
[2022-07-13] MEDS ORDERED: LOSARTAN POTASSIUM 50 MG TABLET PO SCH (09:00)
[2022-07-13] MEDS ORDERED: ASPIRIN 81 MG CHEWABLE TABLET PO SCH (09:00)
[2022-07-13] MEDS ORDERED: ATORVASTATIN 20 MG TAB PO SCH (09:00)
[2022-07-13 10:49] VITALS: BP 120/41; TEMP 97.8
== END 2022-07-13 09:33 | disposition home or self-care (01) | DRG 392 ==
LOC: ER 17:53 → ERHOLD 21:23 → 3RD-ICU 22:04 → 2ND 07-12 13:45
PROVIDERS: ADMIT Internal Medicine; ATTEND Internal Medicine
DX: K57.32 Diverticulitis of large intestine without perforation or abscess without bleeding (principal); I50.32 Chronic diastolic (congestive) heart failure; I48.20 Chronic atrial fibrillation, unspecified; I11.0 Hypertensive heart disease with heart failure; E78.5 Hyperlipidemia, unspecified; K21.9 Gastro-esophageal reflux disease without esophagitis; D63.8 Anemia in other chronic diseases classified elsewhere; Z95.2 Presence of prosthetic heart valve; Z86.73 Personal history of transient ischemic attack (TIA), and cerebral infarction without residual deficits; Z79.01 Long term (current) use of anticoagulants; Z79.82 Long term (current) use of aspirin; Z79.899 Other long term (current) drug therapy
CPT/HCPCS: 36415; 74176; 76377; 80048; 80053; 80061; 81003; 83690; 83735; 84100; 84443; 85025; 85610; 94760; 96365; 96367; 96375; 99285; J0744; J2270; J2405; J2543; J7030; J7120

== ENCOUNTER 2023-02-11 10:52 | Emergency (ER) | payer OTHER ==
--- OUTSIDE RECORDS SUMMARY | 2023-02-11 11:10 | XMS REPORT | Continuity of Care Document ---
:1945 Author Organization [facility] t Address [address] [facility]. [address] [place] [address] Care Team Providers Name Role Phone Melida SHEFFIELD, Willy Quinn Primary Care Physician [phone] ALBA BELTRAN NATASHA Attending Clinician Unavailable [id number] Attending Clinician Unavailable RYLAN JARAMILLO Attending Clinician Unavailable Jackelyn Hernandez Attending Clinician Unavailable Elle SEVILLA, Melisa Attending Clinician KARON CHRISTIAN Attending Clinician Unavailable Mack JUAREZ, Gabino Whitaker Attending Clinician GABINO PARK Attending Clinician Unavailable Amilcar SHEFFIELD, Alexa Jim Attending Clinician [phone] Jonnie SHEFFIELD, Michael Hendrickson Attending Clinician Floyd SHEFFIELD, Edith Gamboa Attending Clinician Jing SHEFFIELD, Jerrell Dave Attending Clinician Alberto SHEFFIELD, Raz Rodriguez Attending Clinician Yariel SHEFFIELD, Bartolo Attending Clinician Juan Carlos SHEFFIELD, Gabino Attending Clinician GABINO ARNOLD Attending Clinician Unavailable Darrel Hidalgo MD Attending Clinician Ramya SHEFFIELD, Colby Fox Attending Clinician [phone] ELLIS CAMARILLO Attending Clinician Unavailable Maria Teresa SHEFFIELD, Meliza Singh Attending Clinician [phone] Yessica SHEFFIELD, Timmy Miranda Attending Clinician Larry Holbrook CRNA Attending Clinician Doris SHEFFIELD, [place] Nicholas Attending Clinician Haseeb SHEFFIELD, Darlene Attending Clinician Yonas SHEFFIELD, Bernarda Estevez Attending Clinician DARLENE SPARKS Attending Clinician Unavailable RICK SANCHEZ Attending Clinician Unavailable Chery SHEFFIELD, Oneil Lesly Attending Clinician James SHEFFIELD, Noa Alexander Attending Clinician [phone] NOA RAMIREZ Attending Clinician Unavailable Nichelle SHEFFIELD, Jacobo Love Attending Clinician [phone] Bar Toledo MD Attending Clinician Raegan Rico MD Attending Clinician Dillon Tenorio MD Attending Clinician Joyce Boss CRNA Attending Clinician [phone] Robinson SHEFFIELD, Jimmy Ramirez Attending Clinician [phone] Katy Nath MD Attending Clinician Jaden Chan CRNA Attending Clinician Doctor Unassigned, [place] Attending Clinician Unavailable ALBA BELTRAN NATASHA Admitting Clinician Unavailable [id number] Admitting Clinician Unavailable RYLAN JARAMILLO Admitting Clinician Unavailable EDITH BARRIENTOS Admitting Clinician Unavailable BERNARDA BIRD Admitting Clinician Unavailable NOA RAMIREZ Admitting Clinician Unavailable BAR TOL[place]O Admitting Clinician Unavailable SARAH SCHAFFER Admitting Clinician Unavailable Katy Nath MD Admitting Clinician Payers Payer Name Policy Type Policy Number Effective Date Expiration Date Garcia FLORES [id number] [facility] [id number] O - HUMANA [id number] 2021 2021 HEALTHCARE 00:00:00 00:00:00 TOTAL[employer] SNP [id number] 2020 MEDICARE HMO-CIGNA 00:00:00 CIGNA [employer] [id number] 2020 HMO 00:00:00 Problems Condition Condition Condition Status Onset Resolution Last Treating Co mments Source Name Details Category Date Date Treatment Clinician Date Severe Severe Disease Active [facility]18 [facility] regurgitat regurgitat 00:00: Me dical ion ion 00 [place] 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 1-18 [facility] athy athy 00:00: Medical 00 [place] Paroxysmal Paroxysmal Disease Active [facility] atrial atrial 1-18 [facility] fibrillati fibrillati 00:00: Me dical on on 00 [place] Dehydratio Dehydratio Disease Active [facility] n n 1-13 [facility] 00:00: Medical [place] Nausea and Nausea and Disease Active [facility] vomiting vomiting 1-13 [facility] 00:00: Medical 00 [place] Esophageal Esophageal Disease Active 2020-[address] dysphagia dysphagia 1-15 [facility] 00:00: Medical [place] Weakness Weakness Disease [facility] Medical 00 [place] GI bleed GI bleed Disease [facility] Medical 00 [place] s/p s/p Disease Active [facility] Robotic Robotic 9-10 [facility] MVR/LAAL/M MVR/LAAL/M 00:00: Me dical AZE by Dr. TOM by Dr. Marko Penny (09/07/21) (09/07/21) Cardiogeni Cardiogeni Disease Active [facility] c shock c shock [facility] Hypovolemi Hypovolemi Disease Active [facility] shock c shock [facility] Acute Acute Disease Active [facility] pulmonary pulmonary [facility] edema edema [facility] Hypervolem Hypervolem Disease Active [facility] ia, ia, [facility] unspecifie unspecifie Me dical d d Center hypervolem hypervolem ia type ia type No known No known Disease Unive rs active active ity of problems problems [facility] Allergies, Adverse Reactions, Alerts Allergy Allergy Status Severity Reaction(s) Onset Inactive Treating Comm ents Source Name Type Date Date Clinician Aspirin Propensi Active 2020-08 [facility] ty to 08-22 College adverse 00:00: of reaction 00 Medicin s to e drug APIXABAN Allergy Active 2020-[address] [facility] [address] [facility]02 [facility] 00:[facility]: Medical 00 [place] ASPIRIN Allergy Active [facility] 00[facility] Medical 00 Center NO KNOWN Allergy Active [facility] Family History Family Member Diagnosis Comments Start Date Stop Date Source Natural father Diabetes [facility] Natural father Heart disease [facility] Natural sister [facility] Social History Social Habit Start Date Stop Date Quantity Comments Source History SDOH [facility] Alcohol Frequency [facility] History SDOH [facility] Alcohol Std Drinks [facility] History SDOH [facility] Alcohol Binge Medical [facility] Alcohol intake 2021-10-04 2021-10-04 Ex-drinker [facility] 00:00:00 00:00:00 (finding) [facility] Tobacco use and 2021-05-03 2021-05-[address] [facility] exposure 00:00:00 00:00:00 [facility] Alcohol Comment 2021-05-03 2021-05-03 quit [address] [facility] 00:00:00 00:00:00 [facility] Tobacco Comment 2021-05-03 2021-05-03 quit [address] [facility] 00:00:00 00:00:00 [facility] Sex Assigned At [address] [facility] 00:00:00 00:00:[address] [facility] Smoking Status Start Date Stop Date Source Never smoked tobacco [facility] Former smoker 2021-05-03 00:00:00 2021-05-03 00:00:00 [facility] Medications Ordered Filled Start Stop Current Ordering Indication Dosage Frequency Signature Comments Components Source Medication Medication Date Date Medication? Clinician (SIG) Name Name digoxin 2021- No 125ug Take 125 [facility] (LANOXIN) 10-12- mcg by [place] 125 MCG 10:03: 00:00 mouth of tablet 52 :00 daily. Medicin e furosemide 2021- No 40mg Take 40 mg [facility] (LASIX) 40 10-12- by mouth [facility] MG tablet 10:03: 00:00 daily. of 52 :00 Medicin e losartan 2021- No 25mg Take 25 mg [facility] (COZAAR) 25 10-12- by mouth Col lege MG tablet 10:03: 00:00 daily. of 52 :00 Medicin e warfarin 2021- No 5mg Take 5 mg [place] az (COUMADIN) 10-12- by mouth Mario ege 5 MG tablet 10:03: 00:00 daily. of 52 :00 Medicin e atorvastati 2021- No 20mg Take 20 mg [facility] (LIPITOR) 10-12- by mouth. Co llege 20 MG 10:03: 00:00 of tablet 52 :00 Medicin e amiodarone 2021- No 200mg Take 200 [facility] (PACERONE) 10-12-24 mg by [place] 200 MG 10:03: 00:00 mouth of tablet 52 :00 daily. Medicin e metoprolol 2021- No 12.5mg Take 12.5 [facility] (LOPRESSOR) 10-12-24 mg by Colleg e 25 MG 09:59: 00:00 mouth two of tablet 39 :00 times Medicin daily. e lorazepam Yes 1mg Take 1 mg [place] [facility] (ATIVAN) 1 2-24 by mouth Colle ge MG tablet 09:55: nightly as of 38 needed for Medicin Anxiety. e Pantoprazol Yes Take by [place] az e Sodium 40 2-24 mouth. Colleg e MG PACK 08:55: of 28 Medicin e senna-docus Yes 1{tbl} Take 1 [facility] ate 2-24 Tablet by [place] (PERICOLACE 08:55: mouth of ) 8.6-50 MG 28 daily. Medici n per tablet e Tamsulosin Yes Take by [facility] HCl 0.4 MG 2-24 mouth. [place] CAPS 08:55: of 28 Medicin e thiamine 0 Yes 100mg Take 100 [facility] 100 MG 2-24 mg by [place] tablet 08:55: mouth of 28 daily. Medicin e gabapentin Yes 100mg Take 100 [facility] (NEURONTIN) 2-24 mg by [place] 100 MG 08:54: mouth 3 of capsule 00 times Medicin daily. e Magnesium Yes Take by [place] Oxide 400 2-24 mouth. [place] (241.3 Mg) 08:54: of MG TABS 00 Medicin e Aspirin 81 Yes 81mg Take 81 mg [facility] MG tablet 2-24 by mouth Colleg e 08:54: once. of 00 Medicin e ferrous Yes 325mg Take 325 [facility] sulfate 325 2-24 mg by [place] (65 Fe) MG 08:35: mouth 3 of tablet 07 times Medicin daily. e trazodone Yes 50mg Take 50 mg [facility] (DESYREL) 2-24 by mouth Colleg e 50 MG 08:35: nightly. of tablet 07 Medicin e amiodarone 0 Yes [id number] 200mg Take 1 [facility] (PACERONE) 2-24 09 Tablet by Mario e[facility] 200 MG 00:00: mouth of tablet 00 daily. Medicin e atorvastati Yes [id number] 20mg Take 1 [facility] n (LIPITOR) 2-24 Tablet by lege 20 MG 00:00: mouth of tablet 00 daily. Medicin e digoxin 2021-0 Yes [id number] 125ug Take 1 [facility] (LANOXIN) 2-24 09 Tablet by Leonie ge 125 MCG 00:00: mouth of tablet 00 daily. Medicin e furosemide 2021-0 Yes [id number] 40mg Take 1 [facility] (LASIX) 40 2-24 09 Tablet by Mario ege MG tablet 00:00: mouth of 00 daily. Medicin e losartan 2021-0 Yes [id number] 25mg Take 1 [facility] (COZAAR) 25 2-24 09 Tablet by Col lege MG tablet 00:00: mouth of 00 daily. Medicin e warfarin Yes [id number] 5mg Take 1 [facility] (COUMADIN) 10-12 Tablet by Mario ege 5 MG tablet 00:00: mouth of 00 daily. Medicin e metoprolol Yes [id number] Take 1/2 [facility] (TOPROL XL) 10-12 tablet Colleg [...] mouth Center daily for 30 days. amiodarone 0 2021- No 200mg QD Take [address] [facility] (PACERONE) 09-20-04 tablet [facility] 200 MG 00:00: 23:59 (200 mg Medical tablet 00 :00 total) by Center mouth daily for 30 days. thiamine 2021-2021- No 100mg QD Take 1 [facility] 100 MG 09-20-04 tablet [facility] tablet 00:00: 23:59 (100 mg Medical 00 :00 total) by Center mouth daily for 30 days. pantoprazol 2021-2021- No 40mg QD Take [address] [facility] e 09-20-04 tablet (40 [facility] (PROTONIX) 00:00: 23:59 mg total) M edical 40 MG 00 :00 by mouth Center tablet daily for 30 days. magnesium 2021-2021- No 400mg QD Take [address] [facility] oxide 09-20-04 tablet [facility] (MAG-OX) 00:00: 23:59 (400 mg [...] mouth Center daily for 30 days. amiodarone 2021-2021- No 200mg QD Take [address] [facility] (PACERONE) 09-20-04 tablet [facility] 200 MG 00:00: 23:59 (200 mg Medical tablet 00 :00 total) by Center mouth daily for 30 days. thiamine 2021-0 2021- No 100mg QD Take 1 [facility] 100 MG 09-20-04 tablet [facility] tablet 00:00: 23:59 (100 mg Medical 00 :00 total) by Center mouth daily for 30 days. pantoprazol 2021-0 2021- No 40mg QD Take [address] [facility] e 09-20- tablet (40 [facility] (PROTONIX) 00:00: 23:59 mg total) M edical 40 MG 00 :00 by mouth Center tablet daily for 30 days. magnesium 2021-0 2021- No 400mg QD Take [address] [facility] [facility] oxide 09-20-04 tablet [facility] (MAG-OX) 00:00: 23:59 (400 mg Medic al 400 mg 00 :00 total) by Center (241.3 mg mouth magnesium) daily for tablet 30 days. losartan 2021-0 2021- No 25mg QD Take 1 CHI [...] mouth daily for 30 days. aspirin 81 2021-2021- No 81mg QD Take [address] [facility] MG EC 09-20 tablet (81 [facility] tablet 00:00: 23:59 mg total) Medic al 00 :00 by mouth Center daily for 30 days. amiodarone 2021-0 2021- No 200mg QD Take [address] [facility] (PACERONE) 09-20- tablet [facility] 200 MG 00:00: 23:59 (200 mg Medical tablet 00 :00 total) by Center mouth daily for 30 days. atorvastati 2021-0 2021- No 20mg QD Take [address] [facility] n (LIPITOR) 09-19 by mouth [place] 20 MG 15:53: 00:00 daily. Medical tablet 08 :00 Center albuterol 2021-2021- No 2.5mg Take 2.5 CH [...] Take [address] [facility] n (LIPITOR) 09-19- by mouth [place] es 20 MG 15:53: 00:00 daily. Medical tablet 08 :00 Center albuterol 2021-2021- No 2.5mg Take 2.[address] (PROVENTIL) 09-19-01 mg by [facility] 2.5 mg/0.5 15:53: 00:00 nebulizati Medical mL Nebu 08 :00 on every 6 Center nebulizer (six) solution hours as needed for Wheezing. docusate 2021-0 2021- No 100mg QD Take [address] [facility] sodium 2-08 20-01 mg by [facility] (COLACE) 15:53: 00:00 mouth Medical 100 MG 08 :00 daily. Center capsule apixaban 2021- No 5mg Q.5D Take [address] [facility] (Eliquis) 5 09-19 by mouth 2 L ukes mg Tab 15:53: 00:00 (two) Medical tablet 08 :00 times Center daily. atorvastati 2021-0 2021- No 20mg QD Take [address] [facility] n (LIPITOR) 09-19- by mouth [place] es 20 MG 15:53: 00:00 daily. Medical tablet 08 :00 Center albuterol 2021-0 2- No 2.5mg Take 2.[address] (PROVENTIL) 09-19 02-01 mg by [facility] 2.5 mg/0.5 15:53: 00:00 nebulizati Medical mL Nebu 08 :00 on every 6 Center nebulizer (six) solution hours as needed for Wheezing. docusate 2021-0 2022- No 100mg QD Take [address] [...] capsule mouth nightly for 30 days. senna-docus No 1{tbl} QD Take [address] ate 09-19 tablet by [facility] (SENOKOT S) 00:00: 23:59 mouth Medi allison 8.6-50 mg 00 :00 nightly Center per tablet for 30 days. polyethylen No 17g QD Take 17 g CH[facility] [...] Q.5D Take [address] (mucINEX) 09-19- tablet [facility] 600 mg 12 00:00: 23:59 [...] mouth Center daily for 30 days. warfarin No 5mg QD Take [address] [facility] [...] (two) times daily for 30 days. gabapentin No 100mg QD Take [address] [facility] [...] Max Daily Amount: 4 tablets HYDROcodone 2021- 1{tbl} Take [address] -acetaminop 2-08 tablet by [place] (NORCO 00:00: 23:59 mouth Medic al 5-325) 00 :00 every 6 Center 5-325 mg (six) per tablet hours as needed for Pain for up to 7 days. Max Daily Amount: 4 tablets metoprolol 2020-08- No 75mg Take 75 mg [facility] (LOPRESSOR) 1-30 11-30 by mouth [...] tablet 07 Medicin e verapamil 2020-08 Yes [id number] 120mg Take 1 [facility] (VERELAN) 1-30 capsule by Mario [facility] 120 MG CR 00:00: mouth of capsule 00 daily. May Medici n take e additional 1 tablet daily as needed. ondansetron 2020-08 Yes [id number] 4mg Take 1 [facility] (ZOFRAN-ODT 1-30 Tablet by Col lege ) 4 mg 00:00: mouth of disintegrat 00 every 8 Medic in ing tablet hours as e needed for Nausea. ondansetron 2020-08 Yes [id number] 4mg Take 1 [facility] (ZOFRAN-ODT 1-30 Tablet by Col lege ) 4 mg 00:00: mouth of disintegrat 00 every 8 Medic in ing tablet hours as e needed for Nausea. verapamil 2020-08 No [id number] 120mg Take 1 [facility] (VERELAN) 1-30 02-24 capsule by Col lege 120 MG CR 00:00: 00:00 mouth of capsule 00 :00 daily. May Medici n take e additional 1 tablet daily as needed. atorvastati 2020-08 Yes 20mg Take 20 mg [facility] n (LIPITOR) 1-04 by mouth. [...] times Medicin daily. e benzonatate 2020-08 Yes [facility] (TESSALON) 0-25 College 100 mg 00:00: of capsule 00 Medicin e benzonatate 2020-08- No [facility] (TESSALON) 0-25 11-30 College 100 mg 00:00: 00:00 of capsule 00 :00 Medicin e docusate 2020-08 Yes [facility] sodium 0-17 College (COLACE) 00:00: of 100 MG 00 Medicin capsule e metoprolol 2020-08 Yes [facility] (LOPRESSOR) 0-17 College 25 MG 00:00: of tablet 00 Medicin e docusate 2020-08 Yes [facility] sodium 0-17 College (COLACE) 00:00: of 100 MG 00 Medicin capsule e docusate 2020-08 Yes [facility] sodium 0-17 College (COLACE) 00:00: of 100 MG 00 Medicin capsule e metoprolol 2020-08- No [facility] (LOPRESSOR) 0-17 11-30 College 25 MG 00:00: 00:00 of tablet 00 :00 Medicin e promethazin 2020-08 Yes [facility] e 0-11 College (PHENERGAN) 00:00: of 12.5 MG 00 Medicin tablet e promethazin 2020-08 Yes [facility] 0-11 [facility] (PHENERGAN) 00:00: of 12.5 MG 00 Medicin tablet e promethazin 2020-[address] [facility] 0-11 [place] (PHENERGAN) 00:00: of 12.5 MG 00 Medicin [...] [facility] MG TABS 08-18 by mouth. [facility] 00:00: 05:59 of 00 :00 Medicin e Apixaban 5 2020-08- No 5mg Take 5 mg [facility] MG TABS 008-18 by mouth [place] 00:00: 05:59 two times of 00 :00 [...] furosemide 2020-2020- No 40mg Take 40 mg [facility] (LASIX) 40 05-11 by mouth. Col lege MG tablet 00:00: 05:59 of 00 :00 Medicin e Aspirin 81 2020- No 81mg Take 81 mg [facility] MG tablet 05-11 by mouth. [facility] 00:00: 05:59 of 00 :00 Medicin e furosemide 2020-2020- No 40mg Take 40 mg [facility] (LASIX) 40 05-11 by mouth. [...] QD Take [address] [facility] (LASIX) 40 9- 12-22 tablet (40 [facility] MG tablet [...] 81 2020- No 81mg Take 81 mg [facility] MG tablet 05-11 by mouth. [...] (two) times daily for 90 days. ferrous 2020-2020- No 325mg Q.5D Take [address] sulfate 325 - 12-21 tablet [facility] (65 FE) MG 00:00: 23:59 (325 mg Med ical tablet 00 :00 total) by Center mouth 2 (two) times daily for 90 days. metoprolol 2020-2020- No 75mg Q.5D Take 1.[address] tartrate - 12-21 tablets [facility] (LOPRESSOR) 00:00: 23:59 (75 mg [...] (two) times daily for 90 days. metoprolol 0 2020- No 75mg Q.5D Take 1.[address] tartrate 05-10 12-21 tablets [facility] (LOPRESSOR) 00:00: 23:59 (75 mg Med ical 50 MG 00 :00 total) by Center tablet mouth 2 (two) times daily for 90 days. pantoprazol 2020-0 2020- No 40mg Q.5D Take [address] e 05-10 12-21 tablet (40 [facility] (PROTONIX) 00:00: 23:59 mg [...] mouth [place] 00 daily. Medical Branch atorvastati 0 Yes 20mg Take 20 mg Univers n [...] Until Branch Discontinu ed, Routine, Intra-op simethicone Yes PRN, [...] lactated 2019 2019- No [facility]22 mL/hr, ity of infusion 11:30: 11:42 1,000 mL, Tomas as 1,000 mL 00 :00 IV Medical Infusion, Branch ONCE, 1 dose, Sat04/22/19 at 0630, Routine, DSU Pre-op Immunizations Ordered Immunization Filled Immunization Date Status Commen ts Source Name Name [place] SARS-CoV-2 2021-07-18 Completed [facility] Vaccination 00:00:00 of Medicine Pfizer SARS-CoV-2 2021-07-18 Completed [facility] Vaccination 00:00:00 of Medicine Pneumococcal 2021-07-[address] [facility] Conjugate (Prevnar) 00:00:00 [facility] 13-Valent Pneumococcal 2021-07-[address] [facility] Conjugate (Prevnar) 00:00:00 [facility] 13-[facility]ent Pneumococcal 2021-07-[address] [facility] Conjugate (Prevnar) 00:00:00 [facility] Influenza Four-QIV 2021-07-[address] [facility] PF 6+MO IM ([id number]) 00:00:00 [facility] Influenza Four-QIV 2021-07-[address] [facility] PF 6+MO IM ([id number]) 00:00:00 [facility] Influenza Four-QIV 2021-07-[address] [facility] PF 6+MO IM ([id number]) 00:00:00 [facility] Pneumococcal 2021-05-[address] [facility] Conjugate (Prevnar) 00:00:00 [facility]ent Pneumococcal 2021-05-[address] [facility] Conjugate (Prevnar) 00:00:00 [facility] Pneumococcal 2021-05-[address] [facility] Conjugate (Prevnar) 00:00:00 [facility]ent Vital Signs Vital Name Observation Time Observation Value Comments Source WEIGHT 2021-05-06 08:52:00 88.2 kg WEIGHT 2021-05-03 09:54:00 92.08 kg HEIGHT 2021-04-28 15:00:00 165.1 cm Systolic blood 2021-10-12 14:35:00 116 mm[Hg] [facility] Medicine Diastolic blood 2021-10-12 14:35:00 76 mm[Hg] [facility] Medicine Heart rate 2021-10-12 14:35:00 121 /min [facility] Respiratory rate 2021-10-12 14:35:00 16 /min [facility] Body height 2021-10-12 14:35:00 167.6 cm [facility] Body weight 2021-10-12 14:35:00 83.008 kg [facility] BMI 2021-10-12 14:35:00 29.54 kg/m2 [facility] Oxygen saturation in 2021-10-12 14:35:00 99 /min [facility] Arterial blood by Medicine Pulse [...] kg Systolic blood 2021-07-18 20:56:00 118 mm[Hg] [facility] pressure Medicine Diastolic blood 2021-07-18 20:56:00 70 mm[Hg] [facility] pressure Medicine Heart rate 2021-07-18 20:56:00 102 /min [facility] Respiratory rate 2021-07-18 20:56:00 16 /min [facility] Body height 2021-07-18 20:56:00 167.[address] cm [facility] Body weight 2021-07-18 20:56:00 83.008 kg [facility] BMI 2021-07-18 20:56:00 29.54 kg/m2 [facility] Oxygen saturation in 2021-07-18 20:56:00 100 /min [facility] Arterial blood by [facility] Pulse oximetry HEIGHT 2021-07-03 20:00:00 167.6 cm WEIGHT 2021-07-03 20:00:00 81.8 kg HEIGHT 2021-07-03 12:30:00 167.6 cm WEIGHT 2021-07-03 12:30:00 76.204 kg HEIGHT 2021-07-03 20:00:00 167.6 cm WEIGHT 2021-07-03 20:00:00 81.8 kg HEIGHT 2021-07-03 12:30:00 167.6 cm WEIGHT 2021-07-03 12:30:00 76.204 kg Systolic blood 2021-06-22 13:19:00 140 mm[Hg] [facility] pressure Medicine Diastolic blood 2021-06-22 13:19:00 82 mm[Hg] [facility] Medicine Heart rate 2021-06-22 13:19:00 86 /min [facility] Body temperature 2021-06-22 13:19:00 36.83 Lalita [facility] Body height 2021-06-22 13:19:00 167.6 cm [facility] Body weight 2021-06-22 13:19:00 84.732 kg [facility] BMI 2021-06-22 13:19:00 30.15 kg/m2 [facility] WEIGHT 2021-05-23 22:20:00 83.643 kg [...] cm Systolic blood 2019-04-22 13:42:00 140 mm[Hg] Davion lofton pressure [place] [facility] Diastolic blood 2019-04-22 13:42:00 73 mm[Hg] Unive rsity of pressure [place] [facility] Heart rate 2019-04-22 13:42:00 56 /min [facility] [place] [facility] Respiratory rate 2019-04-22 13:42:00 16 /min [facility] Oxygen saturation in 2019-04-22 13:42:00 99 /min [facility] of Arterial blood by [facility] allison Pulse oximetry Branch Body temperature 2019-04-22 13:27:00 36.33 Lalita [facility] [place] [facility] Body height 2019-04-17 16:00:00 162.6 cm [facility] [place] [facility] [place] Body weight 2019-04-17 16:00:00 91.173 kg [facility] BMI 2019-04-17 16:00:00 34.50 kg/m2 [facility] Systolic blood 2019-04-22 13:42:00 140 mm[Hg] Univer [facility]ity of pressure [facility] [place] Diastolic blood 2019-04-22 13:42:00 73 mm[Hg] Unive rsity of pressure [facility] Heart rate 2019-04-22 13:42:00 56 /min [facility] Respiratory rate 2019-04-22 13:42:00 16 /min [facility] Oxygen saturation in 2019-04-22 13:42:00 99 /min [facility] Arterial blood by [facility] Pulse oximetry Branch Body temperature 2019-04-22 13:27:00 36.33 Lalita [facility] [place] [facility] [place] Body height 2019-04-17 16:00:00 162.6 cm [facility] Body weight 2019-04-17 16:00:00 91.173 kg [facility] BMI 2019-04-17 16:00:00 34.50 kg/m2 [facility] [place] [facility] Systolic blood 2021-10-04 08:58:00 125 mm[Hg] [facility] Diastolic blood 2021-10-04 08:58:00 74 mm[Hg] [facility] Heart rate 2021-10-04 08:58:00 119 /min [facility] Respiratory rate 2021-10-04 08:58:00 16 /min [facility] Body height 2021-10-04 08:58:00 167.6 cm [facility] Body weight 2021-10-04 08:58:00 74.39 kg [facility] BMI 2021-10-04 08:58:00 26.47 kg/m2 [facility] Oxygen saturation in 2021-10-04 08:58:00 100 /min [facility] Arterial blood by Medical Ce nter Pulse oximetry Body temperature 2021-09-19 16:03:00 36.56 Lalita [facility] Procedures Procedure Date / Time Performing Source Performed Clinician ELECTROCARDIOGRAM COMPLETE 2021-10-12 Jennifer Kathleen [facility] 15:06:00 Medicine PHOSPHORUS 2021-09-[address] [facility] 03:23:00 [facility] CALCIUM, IONIZED 2021-09-19 Serenio, Henry [facility] 03:23:00 [facility] CBC W/PLT COUNT & AUTO 2021-09-[address] [facility] DIFFERENTIAL 03:23:00 [facility] PROTHROMBIN TIME/INR 2021-09-19 Serkaylah Henry [facility] 03:23:00 [facility] MAGNESIUM 2021-09-[address] [facility] 03:23:00 [facility] BASIC METABOLIC PANEL 2021-09-19 Gabino Arnold [facility] 03:23:00 [facility] CBC W/PLT COUNT & AUTO 2021-09-19 SereniHenry denney [facility] DIFFERENTIAL 03:23:00 [facility] XR CHEST 1 VIEW PORTABLE / BEDSIDE 2021-09-[address] [facility] 04:55:00 [facility] MAGNESIUM 2021-09-[address] [facility] 03:25:00 [facility] PHOSPHORUS 2021-09-18 Serenio, Henry [facility] 03:25:00 [facility] CALCIUM, IONIZED 2021-09-18 Serenio, Henry [facility] 03:25:00 [facility] CBC W/PLT COUNT & AUTO 2021-09-18 Serenio, Henry [facility] DIFFERENTIAL 03:25:00 [facility] PROTHROMBIN TIME/INR 2021-09-18 Serenio, Henry [facility] 03:25:00 [facility] BASIC METABOLIC PANEL 2021-09-18 Arnold, Gabino [facility] 03:25:00 [facility] COMPREHENSIVE METABOLIC PANEL 2021-09-18 Phong Norwood [facility] 03:25:00 [facility] CBC W/PLT COUNT & AUTO 2021-09-18 Serenio, Henry [facility] DIFFERENTIAL 03:25:00 [facility] POCT-GLUCOSE METER 2021-09-17 Arnold, Gabino [facility] 17:26:00 [facility] POCT-GLUCOSE METER 2021-09-17 Arnold, Gabino [facility] 12:28:00 [facility] POCT-GLUCOSE METER 2021-09-17 Arnold, Gabino [facility] 07:58:00 [facility] PHOSPHORUS 2021-09-17 Serenio, Henry [facility] 07:50:00 [facility] MAGNESIUM 2021-09-17 Serenio, Henry [facility] 07:50:00 [facility] CALCIUM, IONIZED 2021-09-17 Serenio, Henry [facility] 05:41:00 [facility] CBC W/PLT COUNT & AUTO 2021-09-17 Serenio, Henry [facility] 05:41:00 [facility] PROTHROMBIN TIME/INR 2021-09-17 Serenio, Henry [facility] 05:41:00 [facility] CBC W/PLT COUNT & AUTO 2021-09-17 Serenio, Henry [facility] DIFFER[facility] 05:41:00 [facility] XR CHEST 1 VIEW PORTABLE / BEDSIDE 2021-09-[address] [facility] 04:47:00 [facility] POCT-GLUCOSE METER 2021-09-16 Arnold, Gabino [facility] 21:47:00 [facility] MAGNESIUM 2021-09-16 Serenio, Henry [facility] 17:37:00 [facility] POCT-GLUCOSE METER 2021-09-[address] [facility] 17:17:00 [facility] POCT-GLUCOSE METER 2021-09-16 Arnold, Gabino [facility] 12:41:00 [facility] POCT-GLUCOSE METER 2021-09-16 Arnold, Gabino [facility] 07:47:00 [facility] XR CHEST 1 VIEW PORTABLE / BEDSIDE 2021-09-[address] [facility] 05:13:00 [facility] PROTHROMBIN TIME/INR 2021-09-[address] [facility] 04:03:00 [facility] APTT 2021-09-16 Juan Carlos Gabino [facility] 04:03:00 [facility] BASIC METABOLIC PANEL 2021-09-[address] [facility] 04:03:00 [facility] CBC W/PLT COUNT & AUTO 2021-09-16 Serenio, Henry [facility] 04:03:00 [facility] MAGNESIUM 2021-09-[address] [facility] 04:03:00 [facility] PHOSPHORUS 2021-09-16 Serenio, Henry [facility] 04:03:00 [facility] CALCIUM, IONIZED 2021-09-16 Serenio, Henry [facility] 04:03:00 [facility] CBC W/PLT COUNT & AUTO 2021-09-16 Serenio, Henry [facility] DIFFER[facility] 04:03:00 [facility] POCT-GLUCOSE METER 2021-09-15 Juan Carlos Gabino [facility] 20:46:00 [facility] POCT-GLUCOSE METER 2021-09-15 Juan Carlos Gabino [facility] 17:08:00 [facility] POCT-GLUCOSE METER 2021-09-15 Juan Carlos Gabino [facility] 12:04:00 [facility] POCT-GLUCOSE METER 2021-09-15 Juan Carlos Gabino [facility] 07:15:00 [facility] XR CHEST 1 VIEW PORTABLE / BEDSIDE 2021-09-15 Serenio Ralp h [facility] 04:42:00 [facility] CBC W/PLT COUNT & AUTO 2021-09-15 Serenio, Henry [facility] DIFFER[facility] 03:54:00 [facility] HEPATIC FUNCTION PANEL 2021-09-15 Serenio, Henry [facility] 03:54:00 [facility] PHOSPHORUS 2021-09-15 Serenio, Henry [facility] 03:54:00 [facility] CALCIUM, IONIZED 2021-09-15 Serenio, Henry [facility] 03:54:00 [facility] CBC W/PLT COUNT & AUTO 2021-09-15 Serenio, Henry [facility] DIFFER[facility] 03:54:00 [facility] MAGNESIUM 2021-09-15 Serenio, Henry [facility] 03:54:00 [facility] PROTHROMBIN TIME/INR 2021-09-15 Serenio, Henry [facility] 03:54:00 [facility] BASIC METABOLIC PANEL 2021-09-[address] [facility] 03:54:00 [facility] APTT 2021-09-[address] [facility] 03:54:00 [facility] ECG 12-LEAD 2021-09-[address] [facility] 01:56:37 [facility] ECG 12-LEAD 2021-09-15 Unknown, Hl7 [facility] 01:56:37 [facility] ECG 12-LEAD 2021-09-[address] [facility] 01:56:09 [facility] ECG 12-LEAD 2021-09-15 Unknown, Hl7 [facility] 01:56:09 [facility] ECG 12-LEAD 2021-09-[address] [facility] 01:55:34 [facility] ECG 12-LEAD 2021-09-15 Unknown, Hl7 [facility] 01:55:34 [facility] PREPARE LEUKO-REDUCED RBC 2021-09-[address] [facility] 23:55:00 [facility] POCT-GLUCOSE METER 2021-09-[address] [facility] 21:03:00 [facility] MAGNESIUM 2021-09-14 Serkaylah, Henry [facility] 20:55:00 [facility] BASIC METABOLIC PANEL 2021-09-[address] [facility] 09:06:00 [facility] POCT-GLUCOSE METER 2021-09-[address] [facility] 07:23:00 [facility] CBC W/PLT COUNT & AUTO 2021-09-14 Serenio, Henry [facility]FFER[facility] 04:56:00 [facility] HEPATIC FUNCTION PANEL 2021-09-14 Serenio, Henry [facility] 04:56:00 [facility] PHOSPHORUS 2021-09-14 Serenio, Henry [facility] 04:56:00 [facility] CALCIUM, IONIZED 2021-09-14 Serenio, Henry [facility] 04:56:00 [facility] CBC W/PLT COUNT & AUTO 2021-09-14 Serenio, Henry [facility] DIFFER[facility] 04:56:00 [facility] BASIC METABOLIC PANEL 2021-09-14 Serenio, Henry [facility] 04:56:00 [facility] MAGNESIUM 2021-09-14 Serenio, Henry [facility] 04:56:00 [facility] APTT 2021-09-14 Serenio, Henry [facility] 04:56:00 [facility] PROTHROMBIN TIME/INR 2021-09-14 Serenio, Henry [facility] 04:56:00 [facility] XR CHEST 1 VIEW PORTABLE / BEDSIDE 2021-09-14 [address]Marce [address] h [facility] 00:53:00 [facility] POCT-GLUCOSE METER 2021-09-[address] [facility] 22:05:00 [facility] BASIC METABOLIC PANEL 2021-09-13 Serenio, Henry [facility] 17:17:00 [facility] MAGNESIUM 2021-09-13 Serenio, Henry [facility] 17:17:00 [facility] POCT-GLUCOSE METER 2021-09-13 Alberto, Raz [facility] 17:16:00 [facility] ECG 12-LEAD 2021-09-13 Unknown, Hl7 [facility] 14:33:16 [facility] ECG 12-LEAD 2021-09-13 Unknown, Hl7 [facility] 13:30:46 [facility] ECG 12-LEAD 2021-09-13 Unknown, Hl7 [facility] 13:29:58 [facility] ECG 12-LEAD 2021-09-13 Nieves, Herve [facility] 13:29:37 [facility] ECG 12-LEAD 2021-09-13 Unknown, Hl7 [facility] 13:29:37 [facility] ECG 12-LEAD 2021-09-13 Unknown, Hl7 [facility] 13:29:07 [facility] ECG 12-LEAD 2021-09-13 Unknown, Hl7 [facility] 13:24:42 [facility] ECG 12-LEAD 2021-09-[address] [facility] 12:51:16 [facility] ECG 12-LEAD 2021-09-13 Unknown, Hl7 [facility] 12:51:16 [facility] ECG 12-LEAD 2021-09-13 Unknown, Hl7 [facility] 12:50:38 [facility] ECG 12-LEAD 2021-09-13 Unknown, Hl7 [facility] 12:46:16 [facility] POCT-GLUCOSE METER 2021-09-[address] [facility] 11:06:00 [facility] 2D ECHO W/ DOPPLER (CW/PW/COLOR) 2021-09-[address] [facility] 10:29:22 [facility] TRANSFUSE LEUKO-REDUCED RED BLOOD 2021-09-[address] [facility] 10:15:00 [facility] BASIC METABOLIC PANEL 2021-09-[address] [facility] 10:15:00 [facility] MAGNESIUM 2021-09-[address] [facility] 10:15:00 [facility] TYPE AND SCREEN, AUTOMATED 2021-09-13 Ezequiel [facility]erve [facility] 08:[facility]00 [facility] POCT-GLUCOSE METER 2021-09-[address] [facility] 07:48:00 [facility] XR CHEST 1 VIEW PORTABLE / BEDSIDE 2021-09-[address] [facility] 02:03:00 [facility] CBC W/PLT COUNT & AUTO 2021-09-13 Serenio, Henry [facility] 01:50:00 [facility] HEPATIC FUNCTION PANEL 2021-09-13 Serenio, Henry [facility] 01:50:00 [facility] PHOSPHORUS 2021-09-13 Serenio, Henry [facility] 01:50:00 [facility] CALCIUM, IONIZED 2021-09-13 Serenio, Henry [facility] 01:50:00 [facility] CBC W/PLT COUNT & AUTO 2021-09-13 Serenio, Henry [facility] 01:50:00 [facility] BASIC METABOLIC PANEL 2021-09-13 Serfrankio, Henry [facility] 01:50:00 [facility] MAGNESIUM 2021-09-13 Serenio, Henry [facility] 01:50:00 [facility] APTT 2021-09-13 Serfrankio, Henry [facility] 01:50:00 [facility] BLOOD GAS, VENOUS 2021-09-13 Dax, Moy [facility] 01:50:00 [facility] PROTHROMBIN TIME/INR 2021-09-13 Dax, Moy [facility] 01:50:00 [facility] HC VENOUS DOPPLER EXT UNI 2021-09-[address] [facility] 22:09:00 [facility] POCT-GLUCOSE METER 2021-09-[address] [facility] 21:56:00 [facility] POCT-GLUCOSE METER 2021-09-[address] [facility] 16:06:00 [facility] MAGNESIUM 2021-09-12 Serfrankio, Henry [facility] 11:57:00 [facility] POTASSIUM 2021-09-[address] [facility] 11:57:00 [facility] PHOSPHORUS 2021-09-[address] [facility] 11:57:00 [facility] CALCIUM, IONIZED 2021-09-[address] [facility] 11:57:00 [facility] POCT-GLUCOSE METER 2021-09-[address] [facility] 11:18:00 [facility] POCT-GLUCOSE METER 2021-09-[address] [facility] 07:50:00 [facility] ECG 12-LEAD 2021-09-12 Unknown, Hl7 [facility] 07:21:58 [facility] BLOOD GAS, ARTERIAL 2021-09-12 Serenio, Henry [facility] 03:21:00 [facility] CBC W/PLT COUNT & AUTO 2021-09-12 Serenio, Henry [facility] 03:20:00 [facility] BASIC METABOLIC PANEL 2021-09-12 Serenio, Henry [facility] 03:20:00 [facility] HEPATIC FUNCTION PANEL 2021-09-12 Serenio, Henry [facility] 03:20:00 [facility] MAGNESIUM 2021-09-12 Serenio, Henry [facility] 03:20:00 [facility] PHOSPHORUS 2021-09-12 Serenio, Henry [facility] 03:20:00 [facility] CALCIUM, IONIZED 2021-09-12 Serenio, Henry [facility] 03:20:00 [facility] CBC W/PLT COUNT & AUTO 2021-09-12 Serenio, Henry [facility] 03:20:00 [facility] PT/APTT 2021-09-12 Serenio, Henry [facility] 03:20:00 [facility] LACTIC ACID, ARTERIAL 2021-09-12 Serenio, Henry [facility] 03:20:00 [facility] XR CHEST 1 VIEW PORTABLE / BEDSIDE 2021-09-12 Serenio, Ralp h [facility] 01:10:00 [facility] HC VENOUS DOPPLER EXT UNI 2021-09-[address] [facility] 23:31:00 [facility] BASIC METABOLIC PANEL 2021-09-11 Serenio, Henry [facility] 20:26:00 [facility] MAGNESIUM 2021-09-11 Serenio, Henry [facility] 20:26:00 [facility] HEMOGLOBIN AND HEMATOCRIT 2021-09-11 Serenio, Henry [facility] 20:26:00 [facility] POCT-GLUCOSE METER 2021-09-11 Sagar-Joshua, Raz [facility] 20:25:00 [facility] POCT-GLUCOSE METER 2021-09-11 Keith-Lewis, Raz [facility] 16:07:00 [facility] BASIC METABOLIC PANEL 2021-09-11 Serenio, Henry [facility] 12:13:00 [facility] MAGNESIUM 2021-09-11 Serenio, Henry [facility] 12:13:00 [facility] OXYGEN SATURATION, MEASURED 2021-09-[address] [facility] 12:13:00 [facility] PHOSPHORUS 2021-09-11 Luz Elena Kameron A [facility] 12:13:00 [facility] CALCIUM, IONIZED 2021-09-11 Luz Elena Kameron A [facility] 12:13:00 [facility] POCT-GLUCOSE METER 2021-09-11 Jing, Jerrell [facility] 11:00:00 [facility] POCT-GLUCOSE METER 2021-09-11 Jing, Jerrell [facility] 08:18:00 [facility] OXYGEN SATURATION, MEASURED 2021-09-11 Jing, Jerrell [facility] 06:13:00 [facility] CBC W/PLT COUNT & AUTO 2021-09-11 Serenio, Henry [facility] 03:45:00 [facility] BASIC METABOLIC PANEL 2021-09-11 Serenio, Henry [facility] 03:45:00 [facility] HEPATIC FUNCTION PANEL 2021-09-11 Serenio, Henry [facility] 03:45:00 [facility] MAGNESIUM 2021-09-11 Serenio, Henry [facility] 03:45:00 [facility] PHOSPHORUS 2021-09-11 Serenio, Henry [facility] 03:45:00 [facility] OXYGEN SATURATION, MEASURED 2021-09-11 Serenio, Henry [facility] 03:45:00 [facility] CALCIUM, IONIZED 2021-09-11 Serenio, Henry [facility] 03:45:00 [facility] CBC W/PLT COUNT & AUTO 2021-09-11 Serenio, Henry [facility] 03:45:00 [facility] PT/APTT 2021-09-11 Serenio, Henry [facility] 03:45:00 [facility] LACTIC ACID, ARTERIAL 2021-09-11 Serenio, Henry [facility] 03:45:00 [facility] BLOOD GAS, ARTERIAL 2021-09-11 Serenio, Henry [facility] 03:44:00 [facility] XR CHEST 1 VIEW PORTABLE / BEDSIDE 2021-09-11 Serenio, Jamaicap h [facility] 00:33:00 [facility] BASIC METABOLIC PANEL 2021-09-10 Serenio, Henry [facility] 22:08:00 [facility] MAGNESIUM 2021-09-10 Serenio, Henry [facility] 22:08:00 [facility] HEMOGLOBIN AND HEMATOCRIT 2021-09-10 Serenio, Henry [facility] 22:08:00 [facility] POCT-GLUCOSE METER 2021-09-10 Jing, Jerrell [facility] 22:06:00 [facility] POCT-GLUCOSE METER 2021-09-10 Jing, Jerrell [facility] 16:49:00 [facility] OXYGEN SATURATION, MEASURED 2021-09-[address] [facility] 15:32:00 [facility] 2D ECHO W/ DOPPLER (CW/PW/COLOR) 2021-09-[address] [facility] 14:37:25 [facility] BASIC METABOLIC PANEL 2021-09-10 Serenio, Henry [facility] 12:58:00 [facility] MAGNESIUM 2021-09-10 Serenio, Henry [facility] 12:58:00 [facility] CALCIUM, IONIZED 2021-09-[address] [facility] 12:58:00 [facility] POCT-GLUCOSE METER 2021-09-10 Jing, Jerrell [facility] 11:14:00 [facility] ECG 12-LEAD 2021-09-[address] [facility] 10:42:11 [facility] ECG 12-LEAD 2021-09-10 Unknown, Hl7 [facility] 10:42:11 [facility] ECG 12-LEAD 2021-09-10 Unknown, Hl7 [facility] 10:41:54 [facility] POCT-GLUCOSE METER 2021-09-[address] [facility] 07:42:00 [facility] BLOOD GAS, ARTERIAL 2021-09-10 Serenio, Henry [facility] 04:31:00 [facility] CBC W/PLT COUNT & AUTO 2021-09-10 Serenio, Henry [facility] 04:28:00 [facility] BASIC METABOLIC PANEL 2021-09-10 Serenio, Henry [facility] 04:28:00 [facility] HEPATIC FUNCTION PANEL 2021-09-10 Serenio, Henry [facility] 04:28:00 [facility] MAGNESIUM 2021-09-10 Serenio, Henry [facility] 04:28:00 [facility] PHOSPHORUS 2021-09-10 Serenio, Henry [facility] 04:28:00 [facility] CALCIUM, IONIZED 2021-09-10 Serenio, Henry [facility] 04:28:00 [facility] CBC W/PLT COUNT & AUTO 2021-09-10 Serenio, Henry [facility] 04:28:00 [facility] PT/APTT 2021-09-10 Serenio, Henry [facility] 04:28:00 [facility] LACTIC ACID, ARTERIAL 2021-09-10 Serenio, Henry [facility] 04:28:00 [facility] OXYGEN SATURATION, MEASURED 2021-09-10 Serenio, Henry [facility] 04:27:00 [facility] XR CHEST 1 VIEW PORTABLE / BEDSIDE 2021-09-10 Serenio, Ralp h [facility] 01:45:00 [facility] PREPARE LEUKO-REDUCED RBC 2021-09-09 Otuonye, Gene [facility] 23:54:00 [facility] POCT-GLUCOSE METER 2021-09-09 Jing, Jerrell [facility] 22:06:00 [facility] BASIC METABOLIC PANEL 2021-09-09 Serenio, Henry [facility] 19:37:00 [facility] LACTIC ACID, ARTERIAL 2021-09-09 Serenio, Henry [facility] 19:37:00 [facility] MAGNESIUM 2021-09-09 Serenio, Henry [facility] 19:37:00 [facility] PHOSPHORUS 2021-09-09 Serenio, Henry [facility] 19:37:00 [facility] OXYGEN SATURATION, MEASURED 2021-09-09 Serenio, Henry [facility] 19:37:00 [facility] HEMOGLOBIN AND HEMATOCRIT 2021-09-09 Serenio, Henry [facility] 19:37:00 [facility] CALCIUM, IONIZED 2021-09-09 Serenio, Henry [facility] 19:37:00 [facility] OXYGEN SATURATION, MEASURED 2021-09-[address] [facility] 09:44:00 [facility] OXYGEN SATURATION, MEASURED 2021-09-[address] [facility] 05:07:00 [facility] ECG 12-LEAD 2021-09-09 Unknown, Hl7 [facility] 04:50:00 [facility] ECG 12-LEAD 2021-09-[address] [facility] 04:48:23 [facility] ECG 12-LEAD 2021-09-09 Unknown, Hl7 [facility] 04:48:23 [facility] ECG 12-LEAD 2021-09-09 Unknown, Hl7 [facility] 04:47:37 [facility] POCT-GLUCOSE METER 2021-09-09 Jing, Jerrell [facility] 02:53:00 [facility] COMPREHENSIVE METABOLIC PANEL 2021-09-09 [address] [facility] 02:46:00 [facility] MAGNESIUM 2021-09-[address] [facility] 02:46:00 [facility] PHOSPHORUS 2021-09-[address] [facility] 02:46:00 [facility] CBC (HEMOGRAM ONLY) 2021-09-[address] [facility] 02:46:00 [facility] BLOOD GAS, ARTERIAL 2021-09-[address] [facility] 02:46:00 [facility] CALCIUM, IONIZED 2021-09-09 Jerome, Uselyn [facility] 02:46:00 [facility] XR CHEST 1 VIEW PORTABLE / BEDSIDE 2021-09-[address] [facility] 00:53:00 [facility] PREPARE LEUKO-REDUCED RBC 2021-09-[address] [facility] 23:55:00 [facility] POCT-GLUCOSE METER 2021-09-08 Jing, Jerrell [facility] 21:03:00 [facility] POCT-GLUCOSE METER 2021-09-08 Jing, Jerrell [facility] 18:03:00 [facility] CBC W/PLT COUNT & AUTO 2021-09-[address] [facility] 15:03:00 [facility] CALCIUM, IONIZED 2021-09-08 Luz Elena, Kameron A [facility] 15:03:00 [facility] POTASSIUM 2021-09-08 Zully Lagunaan A [facility] 15:03:00 [facility] MAGNESIUM 2021-09-[address] [facility] 15:03:00 [facility] CBC W/PLT COUNT & AUTO 2021-09-[address] [facility] DIFFER[facility] 15:03:00 [facility] POCT-GLUCOSE METER 2021-09-08 Jing, Jerrell [facility] 12:04:00 [facility] TRANSFUSE LEUKO-REDUCED RED BLOOD 2021-09-[address] [facility] CELLS 11:50:00 [facility] POCT-GLUCOSE METER 2021-09-08 Jing, Jerrell [facility] 10:20:00 [facility] HEMOGLOBIN AND HEMATOCRIT 2021-09-[address] [facility] 10:18:00 [facility] 2D ECHO W/ DOPPLER (CW/PW/COLOR) 2021-09-08 Evonne Ryder rut [facility] 09:30:34 [facility] OXYGEN SATURATION, MEASURED 2021-09-08 Otuonye, Gene [facility] 09:05:00 [facility] POCT-GLUCOSE METER 2021-09-08 Jing, Jerrell [facility] 09:00:00 [facility] LACTIC ACID, ARTERIAL 2021-09-08 Jerome, Uselyn [facility] 08:58:00 [facility] BLOOD GAS, ARTERIAL 2021-09-08 Sebastiánonye, Gene [facility] 08:58:00 [facility] POCT-GLUCOSE METER 2021-09-08 Jing, Jerrell [facility] 08:09:00 [facility] POCT-GLUCOSE METER 2021-09-08 Jing, Jerrell [facility] 06:03:00 [facility] LACTIC ACID, ARTERIAL 2021-09-[address] [facility] 05:53:00 [facility] RRL CRITICAL LABS 2021-09-[address] [facility] (ABG,NA,K,H&H,GLUCOSE) 05:53:00 [facility] enter BLOOD GAS, ARTERIAL 2021-09-[address] [facility] 05:53:00 [facility] SODIUM NA-STAT LAB 2021-09-08 Jerome, Uselyn [facility] 05:53:00 [facility] POTASSIUM-STAT LAB 2021-09-[address] [facility] 05:53:00 [facility] GLUCOSE-STAT LAB 2021-09-[address] [facility] 05:53:00 [facility] HGB/HCT (H&H) - STAT LAB 2021-09-[address] [facility] 05:53:00 [facility] POCT-GLUCOSE METER 2021-09-08 Jing, Jerrell [facility] 05:03:00 [facility] POCT-GLUCOSE METER 2021-09-08 Jing, Jerrell [facility] 04:15:00 [facility] OXYGEN SATURATION, MEASURED 2021-09-08 Jerome, Uselyn [facility] 04:03:00 [facility] BLOOD GAS, ARTERIAL 2021-09-08 Jerome, Uselyn [facility] 04:02:00 [facility] RRL CRITICAL LABS 2021-09-08 Jerome, Uselyn [facility] (ABG,NA,K,H&H,GLUCOSE) 04:02:00 [facility] enter SODIUM NA-STAT LAB 2021-09-08 Jerome, Uselyn [facility] 04:02:00 [facility] POTASSIUM-STAT LAB 2021-09-08 Jerome, Uselyn [facility] 04:02:00 [facility] GLUCOSE-STAT LAB 2021-09-08 Jerome, Uselyn [facility] 04:02:00 [facility] HGB/HCT (H&H) - STAT LAB 2021-09-08 Jerome, Uselyn [facility] 04:02:00 [facility] POCT-GLUCOSE METER 2021-09-[address] [facility] 02:59:00 [facility] CBC W/PLT COUNT & AUTO 2021-09-08 Jean-Claudejo, Bashar [facility] DIFFER[facility] 02:31:00 [facility] CBC W/PLT COUNT & AUTO 2021-09-08 Jean-Claudejo, Bashar [facility] DIFFER[facility] 02:31:00 [facility] COMPREHENSIVE METABOLIC PANEL 2021-09-08 Kameron Laguna [facility] 02:31:00 [facility] MAGNESIUM 2021-09-[address] [facility] 02:31:00 [facility] PHOSPHORUS 2021-09-[address] [facility] 02:31:00 [facility] CALCIUM, IONIZED 2021-09-08 Jerome, Uselyn [facility] 02:31:00 [facility] LACTIC ACID, ARTERIAL 2021-09-08 Jerome, Uselyn [facility] 02:30:00 [facility] RRL CRITICAL LABS 2021-09-08 Jerome, Uselyn [facility] (ABG,NA,K,H&H,GLUCOSE) 02:30:00 [facility] BLOOD GAS, ARTERIAL 2021-09-08 Jerome, Uselyn [facility] 02:30:00 [facility] SODIUM NA-STAT LAB 2021-09-08 Jerome, Uselyn [facility] 02:30:00 [facility] POTASSIUM-STAT LAB 2021-09-08 Jerome, Uselyn [facility] 02:30:00 [facility] GLUCOSE-STAT LAB 2021-09-08 Jerome, Uselyn [facility] 02:30:00 [facility] HGB/HCT (H&H) - STAT LAB 2021-09-08 Jerome, Uselyn [facility] 02:30:00 [facility] POCT-GLUCOSE METER 2021-09-08 Jing, Jerrell [facility] 02:11:00 [facility] POCT-GLUCOSE METER 2021-09-08 Jing, Jerrell [facility] 01:00:00 [facility] OXYGEN SATURATION, MEASURED 2021-09-08 Jerome, Uselyn [facility] 00:55:00 [facility] XR CHEST 1 VIEW PORTABLE / BEDSIDE 2021-09-08 Blaine Perez hael [facility] 00:43:00 [facility] POCT-GLUCOSE METER 2021-09-07 Jing, Jerrell [facility] 23:59:00 [facility] [facility] LABS 2021-09-07 Jerome, Uselyn [facility] (ABG,NA,K,H&H,GLUCOSE) 23:54:00 [facility] enter BLOOD GAS, ARTERIAL 2021-09-07 Jerome, Uselyn [facility] 23:54:00 [facility] SODIUM NA-STAT LAB 2021-09-07 Jerome, Uselyn [facility] 23:54:00 [facility] POTASSIUM-STAT LAB 2021-09-07 Jerome, Uselyn [facility] 23:54:00 [facility] GLUCOSE-STAT LAB 2021-09-07 Jerome, Uselyn [facility] 23:54:00 [facility] HGB/HCT (H&H) - STAT LAB 2021-09-07 Jerome, Uselyn [facility] 23:54:00 [facility] POCT-GLUCOSE METER 2021-09-07 Jing, Jerrell [facility] 23:04:00 [facility] POCT-GLUCOSE METER 2021-09-07 Jing, Jerrell [facility] 22:03:00 [facility] APTT 2021-09-[address] [facility] 21:58:00 [facility] LACTIC ACID, ARTERIAL 2021-09-07 Jerome, Uselyn [facility] 21:58:00 [facility] RRL CRITICAL LABS 2021-09-07 Jerome, Uselyn [facility] (ABG,NA,K,H&H,GLUCOSE) 21:57:00 [facility] enter BLOOD GAS, ARTERIAL 2021-09-07 Jerome, Uselyn [facility] 21:57:00 [facility] SODIUM NA-STAT LAB 2021-09-07 Jerome, Uselyn [facility] 21:57:00 [facility] POTASSIUM-STAT LAB 2021-09-07 Jerome, Uselyn [facility] 21:57:00 [facility] GLUCOSE-STAT LAB 2021-09-07 Jerome, Uselyn [facility] 21:57:00 [facility] HGB/HCT (H&H) - STAT LAB 2021-09-07 Jerome, Uselyn [facility] 21:57:00 [facility] POCT-GLUCOSE METER 2021-09-07 Jing, Jerrell [facility] 20:34:00 [facility] BASIC METABOLIC PANEL 2021-09-07 Jerome, Uselyn [facility] 20:27:00 [facility] RRL CRITICAL LABS 2021-09-07 Jerome, Uselyn [facility] (ABG,NA,K,H&H,GLUCOSE) 20:27:00 [facility] enter BLOOD GAS, ARTERIAL 2021-09-07 Jerome, Uselyn [facility] 20:27:00 [facility] SODIUM NA-STAT LAB 2021-09-07 Jerome, Uselyn [facility] 20:27:00 [facility] POTASSIUM-STAT LAB 2021-09-07 Jerome, Uselyn [facility] 20:27:00 [facility] GLUCOSE-STAT LAB 2021-09-[address] [facility] 20:27:00 [facility] HGB/HCT (H&H) - STAT LAB 2021-09-[address] [facility] 20:27:00 [facility] OXYGEN SATURATION, MEASURED 2021-09-[address] [facility] 19:02:00 [facility] BLOOD GAS, ARTERIAL 2021-09-[address] [facility] 18:48:00 [facility] LACTIC ACID, ARTERIAL 2021-09-[address] [facility] 18:48:00 [facility] CBC (HEMOGRAM ONLY) 2021-09-07 Fermenter Helper, Nandini [facility] 18:48:00 [facility] ECG 12-LEAD 2021-09-07 Kodakandyou, [facility] 18:45:09 [facility] ECG 12-LEAD 2021-09-07 Unknown, Hl7 [facility] 18:45:09 [facility] POCT-GLUCOSE METER 2021-09-[address] [facility] 18:17:00 [facility] LACTIC ACID, ARTERIAL 2021-09-[address] [facility] 17:07:00 [facility] RRL CRITICAL LABS 2021-09-[address] [facility] (ABG,NA,K,H&H,GLUCOSE) 17:07:00 [facility] enter BLOOD GAS, ARTERIAL 2021-09-[address] [facility] 17:07:00 [facility] SODIUM NA-STAT LAB 2021-09-[address] [facility] 17:07:00 [facility] POTASSIUM-STAT LAB 2021-09-[address] [facility] 17:07:00 [facility] GLUCOSE-STAT LAB 2021-09-[address] [facility] 17:07:00 [facility] HGB/HCT (H&H) - STAT LAB 2021-09-[address] [facility] 17:07:00 [facility] TRANSFUSE LEUKO-REDUCED RED BLOOD 2021-09-[address] [facility] CELLS 16:52:00 [facility] XR CHEST 1 VIEW PORTABLE / BEDSIDE 2021-09-[address] [facility] 15:16:00 [facility] CBC W/PLT COUNT & AUTO 2021-09-07 Mau, [facility] DIFFERENTIAL 15:15:00 [facility] BASIC METABOLIC PANEL 2021-09-[address] [facility] 15:15:00 [facility] MAGNESIUM 2021-09-[address] [facility] 15:15:00 [facility] BLOOD GAS, ARTERIAL 2021-09-07 Kodakandla, [facility] 15:15:00 [facility] CBC W/PLT COUNT & AUTO 2021-09-07 Kodakandyou, [facility] DIFFERENTIAL 15:15:00 [facility] PROTHROMBIN TIME/INR 2021-09-07 Kodcorinandyou, [facility] 15:15:00 [facility] PT/APTT 2021-09-07 Kodakandla, [facility] 15:15:00 [facility] FIBRINOGEN 2021-09-07 Kodakandla, [facility] 15:15:00 [facility] LACTIC ACID, ARTERIAL 2021-09-07 Kodakandyou, [facility] 15:15:00 [facility] PHOSPHORUS 2021-09-07 Kodakandla, [facility] 15:15:00 [facility] OXYGEN SATURATION, MEASURED 2021-09-[address] [facility] 15:15:00 [facility] PREPARE RBC 2021-09-[address] [facility] 14:47:00 [facility] PREPARE PLASMA 2021-09-[address] [facility] 14:47:00 [facility] ANESTHESIA PERIPHERAL BLOCK 2021-09-[address] [facility] 14:40:56 [facility] RRL CRITICAL LABS 2021-09-[address] [facility] (ABG,NA,K,H&H,GLUCOSE) 13:26:59 [facility] enter CALCIUM, IONIZED 2021-09-07 HidalgoDarrel zuñiga [facility] 13:26:59 [facility] BLOOD GAS, ARTERIAL 2021-09-[address] [facility] 13:26:59 [facility] SODIUM NA-STAT LAB 2021-09-[address] [facility] 13:26:59 [facility] POTASSIUM-STAT LAB 2021-09-[address] [facility] 13:26:59 [facility] GLUCOSE-STAT LAB 2021-09-07 Darrel Hidalgo [facility] 13:26:59 [facility] HGB/HCT (H&H) - STAT LAB 2021-09-07 Darrel Hidalgo [facility] 13:26:59 [facility] POCT-ACT 2021-09-[address] [facility] 13:03:00 [facility] PLATELET COUNT 2021-09-07 HidalgoDarrel zuñiga [facility] 12:59:25 [facility] CBC W/PLT COUNT & AUTO 2021-09-07 Larry Perez [facility] DIFFERENTIAL 12:59:00 [facility] CBC W/PLT COUNT & AUTO 2021-09-07 Larry Perez [facility] DIFFERENTIAL 12:59:00 [facility] RRL CRITICAL LABS 2021-09-[address] [facility] (ABG,NA,K,H&H,GLUCOSE) 12:42:36 [facility] enter CALCIUM, IONIZED 2021-09-07 Rocky Darrel [facility] 12:42:36 [facility] PROTHROMBIN TIME/INR 2021-09-07 Darrel Hidalgo [facility] 12:42:36 [facility] APTT 2021-09-07 Rocky Darrel [facility] 12:42:36 [facility] FIBRINOGEN 2021-09-07 Rocky Darrel [facility] 12:42:36 [facility] BLOOD GAS, ARTERIAL 2021-09-[address] [facility] 12:42:36 [facility] SODIUM NA-STAT LAB 2021-09-[address] [facility] 12:42:36 [facility] POTASSIUM-STAT LAB 2021-09-07 Rocky Darrel [facility] 12:42:36 [facility] GLUCOSE-STAT LAB 2021-09-[address] [facility] 12:42:36 [facility] HGB/HCT (H&H) - STAT LAB 2021-09-[address] [facility] 12:42:36 [facility] POCT-ACT 2021-09-[address] [facility] 12:15:00 [facility] RRL CRITICAL LABS 2021-09-[address] [facility] (ABG,NA,K,H&H,GLUCOSE) 12:13:19 [facility] enter BLOOD GAS, ARTERIAL 2021-09-[address] [facility] 12:13:19 [facility] SODIUM NA-STAT LAB 2021-09-[address] [facility] 12:13:19 [facility] POTASSIUM-STAT LAB 2021-09-[address] [facility] 12:13:19 [facility] GLUCOSE-STAT LAB 2021-09-[address] [facility] 12:13:19 [facility] HGB/HCT (H&H) - STAT LAB 2021-09-[address] [facility] 12:13:19 [facility] TISSUE EXAM 2021-09-[address] [facility] 12:07:00 [facility] POCT-ACT 2021-09-[address] [facility] 11:41:00 [facility] LACTIC ACID, ARTERIAL 2021-09-[address] [facility] 11:39:09 [facility] RRL CRITICAL LABS 2021-09-[address] [facility] (ABG,NA,K,H&H,GLUCOSE) 11:39:04 [facility] enter BLOOD GAS, ARTERIAL 2021-09-[address] [facility] 11:39:04 [facility] SODIUM NA-STAT LAB 2021-09-[address] [facility] 11:39:04 [facility] POTASSIUM-STAT LAB 2021-09-[address] [facility] 11:39:04 [facility] GLUCOSE-STAT LAB 2021-09-[address] [facility] 11:39:04 [facility] HGB/HCT (H&H) - STAT LAB 2021-09-[address] [facility] 11:39:04 [facility] MISCELLANEOUS LAB ORDER 2021-09-[address] [facility] 11:29:37 [facility] RRL CRITICAL LABS 2021-09-[address] [facility] (ABG,NA,K,H&H,GLUCOSE) 11:07:40 [facility] enter BLOOD GAS, ARTERIAL 2021-09-[address] [facility] 11:07:40 [facility] SODIUM NA-STAT LAB 2021-09-[address] [facility] 11:07:40 [facility] POTASSIUM-STAT LAB 2021-09-[address] [facility] 11:07:40 [facility] GLUCOSE-STAT LAB 2021-09-[address] [facility] 11:07:40 [facility] HGB/HCT (H&H) - STAT LAB 2021-09-[address] [facility] 11:07:40 [facility] POCT-ACT 2021-09-[address] [facility] 10:57:00 [facility] LACTIC ACID, ARTERIAL 2021-09-[address] [facility] 10:44:04 [facility] POCT-ACT 2021-09-[address] [facility] 10:41:00 [facility] RRL CRITICAL LABS 2021-09-[address] [facility] (ABG,NA,K,H&H,GLUCOSE) 10:38:15 [facility] enter BLOOD GAS, ARTERIAL 2021-09-[address] [facility] 10:38:15 [facility] SODIUM NA-STAT LAB 2021-09-[address] [facility] 10:38:15 [facility] POTASSIUM-STAT LAB 2021-09-[address] [facility] 10:38:15 [facility] GLUCOSE-STAT LAB 2021-09-[address] [facility] 10:38:15 [facility] HGB/HCT (H&H) - STAT LAB 2021-09-[address] [facility] 10:38:15 [facility] ANESTHESIA ROXI 2021-09-[address] [facility] 10:08:54 [facility] POCT-ACT 2021-09-[address] [facility] 10:07:00 [facility] POCT-ACT 2021-09-07 Jing, Jerrell [facility] 09:32:00 [facility] RRL CRITICAL LABS 2021-09-[address] [facility] (ABG,NA,K,H&H,GLUCOSE) 08:35:02 [facility] enter CALCIUM, IONIZED 2021-09-07 HidalgoDarrel zuñiga [facility] 08:35:02 [facility] BLOOD GAS, ARTERIAL 2021-09-[address] H[address]Darrel zuñ[address] [facility] 08:35:02 [facility] SODIUM NA-STAT LAB 2021-09-[address] [facility] 08:35:02 [facility] POTASSIUM-STAT LAB 2021-09-[address] [facility] 08:35:02 [facility] GLUCOSE-STAT LAB 2021-09-[address] [facility] 08:35:02 [facility] HGB/HCT (H&H) - STAT LAB 2021-09-[address] [facility] 08:35:02 [facility] ROBOTIC MITRAL VALVE REPLACEMENT 2021-09-[address] [facility] 07:45:00 [facility] ROBOTIC THORACOSCOPY 2021-09-[address] [facility] (VATS),LIGATION ATRIAL APPENDAGE 07:45:00 [facility] MAZE PROCEDURE, MODIFIED 2021-09-[address] [facility] 07:45:00 [facility] ECHOCARDIOGRAM, 3D, 2021-09-[address] [facility] TRANSESOPHAGEAL 07:45:00 [facility] ECG 12-LEAD 2021-09-[address] [facility] 04:35:18 [facility] ECG 12-LEAD 2021-09-07 Unknown, Hl7 [facility] 04:35:18 [facility] TYPE AND SCREEN, AUTOMATED 2021-09-07 Nieves, Herve [facility] 02:59:00 [facility] CBC W/PLT COUNT & AUTO 2021-09-07 Farjo, Basuziel [facility] DIFFERENTIAL 02:59:00 [facility] HEMOGLOBIN A1C 2021-09-07 Nieves, Herve [facility] 02:59:00 [facility] LIPID PANEL 2021-09-07 Nieves, Herve [facility] 02:59:00 [facility] APTT 2021-09-07 Nieves, Herve [facility] 02:59:00 [facility] TSH 2021-09-07 Nieves, Herve [facility] 02:59:00 [facility] CBC W/PLT COUNT & AUTO 2021-09-07 Farjo, Bashar [facility] DIFFERENTIAL 02:59:00 [facility] PROTHROMBIN TIME/INR 2021-09-[address] [facility] 02:59:00 [facility] BLOOD GAS, VENOUS 2021-09-[address] [facility] 02:59:00 [facility] COMPREHENSIVE METABOLIC PANEL 2021-09-07 [address] [facility] 02:59:00 [facility] MAGNESIUM 2021-09-[address] [facility] 02:59:00 [facility] PHOSPHORUS 2021-09-[address] [facility] 02:59:00 [facility] POCT-GLUCOSE METER 2021-09-06 Jing, Jerrell [facility] 21:09:00 [facility] APTT 2021-09-[address] [facility] 17:52:00 [facility] PROTHROMBIN TIME/INR 2021-09-06 Nieves, Herve [facility] 17:52:00 [facility] POCT-GLUCOSE METER 2021-09-06 Jing, Jerrell [facility] 17:14:00 [facility] POCT-GLUCOSE METER 2021-09-06 Jing, Jerrell [facility] 11:09:00 [facility] APTT 2021-09-06 Kameron Laguna A [facility] 11:05:00 [facility] POCT-GLUCOSE METER 2021-09-06 Jing, Jerrell [facility] 08:04:00 [facility] ECG 12-LEAD 2021-09-06 Kameron Laguna A [facility] 07:15:01 [facility] ECG 12-LEAD 2021-09-06 Unknown, Hl7 [facility] 07:15:01 [facility] ECG 12-LEAD 2021-09-06 Unknown, Hl7 [facility] 07:12:35 [facility] CBC W/PLT COUNT & AUTO 2021-09-[address] [facility] DIFFERENTIAL 05:03:00 [facility] BLOOD GAS, VENOUS 2021-09-06 Kameron Laguna A [facility] 05:03:00 [facility] BASIC METABOLIC PANEL 2021-09-[address] [facility] 05:03:00 [facility] MAGNESIUM 2021-09-06 Kameron Laguna A [facility] 05:03:00 [facility] CBC W/PLT COUNT & AUTO 2021-09-[address] [facility] DIFFERENTIAL 05:03:00 [facility] APTT 2021-09-06 Kameron Laguna A [facility] 05:03:00 [facility] APTT 2021-09-05 Jing, Jerrell [facility] 22:08:00 [facility] POCT-GLUCOSE METER 2021-09-05 Jing, Jerrell [facility] 21:45:00 [facility] ECG 12-LEAD 2021-09-05 Zully Lagunaan A [facility] 20:35:24 [facility] ECG 12-LEAD 2021-09-05 Unknown, Hl7 [facility] 20:35:24 [facility] POCT-GLUCOSE METER 2021-09-05 Jing, Jerrell [facility] 17:04:00 [facility] APTT 2021-09-[address] [facility] 16:36:00 [facility] B-TYPE NATRIURETIC FACTOR (BNP) 2021-09-[address] [facility] 16:36:00 [facility] BASIC METABOLIC PANEL 2021-09-[address] [facility] 16:36:00 [facility] MAGNESIUM 2021-09-05 Z[address]an [address] [facility] 16:36:00 [facility] POCT-GLUCOSE METER 2021-09-05 Jing, Jerrell [facility] 11:28:00 [facility] POCT-GLUCOSE METER 2021-09-05 Jing, Jerrell [facility] 08:21:00 [facility] APTT 2021-09-05 Z[address]an [address] [facility] 08:16:00 [facility] APTT 2021-09-05 Zully Lagunaan A [facility] 04:28:00 [facility] BASIC METABOLIC PANEL 2021-09-[address] [facility] 04:28:00 [facility] MAGNESIUM 2021-09-05 Kameron Laguna A [facility] 04:28:00 [facility] BLOOD GAS, VENOUS 2021-09-05 Zully Lagunaan A [facility] 04:28:00 [facility] VANCOMYCIN LEVEL, TROUGH 2021-09-05 Ofoegbmonica, Ifoma [facility] 04:28:00 [facility] XR CHEST 1 VIEW PORTABLE / BEDSIDE 2021-09-[address] [facility] 00:32:00 [facility] POCT-GLUCOSE METER 2021-09-04 Jing, Jerrell [facility] 23:57:00 [facility] APTT 2021-09-04 Zully Lagunaan A [facility] 22:30:00 [facility] POCT-GLUCOSE METER 2021-09-04 Jing, Jerrell [facility] 22:29:00 [facility] CAROTID DOPPLER BILATERAL 2021-09-[address] [facility] 20:37:00 [facility] POCT-GLUCOSE METER 2021-09-04 Jing, Jerrell [facility] 18:02:00 [facility] BASIC METABOLIC PANEL 2021-09-04 Kameron Laguna A [facility] 18:02:00 [facility] MAGNESIUM 2021-09-04 Luz Elena, Kameron A [facility] 18:02:00 [facility] BLOOD GAS, VENOUS 2021-09-04 Luz Elena, Kameron A [facility] 18:02:00 [facility] CTA CHEST 2021-09-[address] [facility] 15:55:00 [facility] CTA ABDOMEN & PELVIS 2021-09-[address] [facility] 15:55:00 [facility] APTT 2021-09-04 Luz Elena Kameron A [facility] 15:16:00 [facility] APTT 2021-09-04 Luz Elena Kameron A [facility] 14:00:00 [facility] APTT 2021-09-04 Luz Elena Kameron A [facility] 12:58:00 [facility] POCT-GLUCOSE METER 2021-09-04 Jing, Jerrell [facility] 12:21:00 [facility] TRANSESOPHAGEAL ECHO 2021-09-[address] Laguna [address] [facility] 10:56:06 [facility] POCT-GLUCOSE METER 2021-09-04 Jing, Jerrell [facility] 09:29:00 [facility] CBC W/PLT COUNT & AUTO 2021-09-04 Ali, Hiba Cooper [facility] DIFFERENTIAL 04:47:00 [facility] CBC W/PLT COUNT & AUTO 2021-09-04 Ali, Hiba Cooper [facility] DIFFERENTIAL 04:47:00 [facility] BASIC METABOLIC PANEL 2021-09-04 Kameron Laguna A [facility] 04:47:00 [facility] MAGNESIUM 2021-09-04 Zully Lagunaan A [facility] 04:47:00 [facility] APTT 2021-09-04 Zully Lagunaan [address] [facility] 04:47:00 [facility] BLOOD GAS, VENOUS 2021-09-04 Luz Elena Kameron A [facility] 04:36:00 [facility] XR CHEST 1 VIEW PORTABLE / BEDSIDE 2021-09-[address] [facility] 00:40:00 [facility] POCT-GLUCOSE METER 2021-09-03 Jing, Jerrell [facility] 22:04:00 [facility] POCT-GLUCOSE METER 2021-09-[address] [facility] 16:27:00 [facility] PROCALCITONIN 2021-09-[address] [facility] 16:04:00 [facility] BASIC METABOLIC PANEL 2021-09-[address] [facility] 16:04:00 [facility] MAGNESIUM 2021-09-[address] [facility] 16:04:00 [facility] BLOOD GAS, VENOUS 2021-09-03 Luz Elena, Kameron Bettencourt [facility] 16:04:00 [facility] ECG 12-LEAD 2021-09-[address] [facility] 15:00:16 [facility] ECG 12-LEAD 2021-09-03 Unknown, Hl7 [facility] 15:00:16 [facility] ECG 12-LEAD 2021-09-03 Unknown, Hl7 [facility] 14:59:48 [facility] 2D ECHO W/ DOPPLER (CW/PW/COLOR) 2021-09-[address] [facility] 09:48:42 [facility] CONT WAVE PULSED DOPPLER 2021-09-[address] [facility] 09:44:53 [facility] COLOR-FLOW MAPPING 2021-09-03 Luz Elena Kameron Bettencourt [facility] 09:44:52 [facility] ECG 12-LEAD 2021-09-03 Unknown, Hl7 [facility] 07:30:39 [facility] ECG 12-LEAD 2021-09-03 Unknown, Hl7 [facility] 07:30:39 [facility] ECG 12-LEAD 2021-09-03 Unknown, Hl7 [facility] 07:30:02 [facility] ECG 12-LEAD 2021-09-03 Unknown, Hl7 [facility] 07:30:02 [facility] BLOOD CULTURE 2021-09-[address] [facility] 06:56:00 [facility] CBC W/PLT COUNT & AUTO 2021-09-[address] [facility] DIFFERENTIAL 04:31:00 [facility] CBC W/PLT COUNT & AUTO 2021-09-03 Ali, Hiba Cooper [facility] DIFFERENTIAL 04:31:00 [facility] BASIC METABOLIC PANEL 2021-09-03 Ali, Hiba Cooper [facility] 04:31:00 [facility] B-TYPE NATRIURETIC FACTOR (BNP) 2021-09-03 Nadimpalli, [facility] 04:31:00 [facility] BLOOD GAS, VENOUS 2021-09-[address] [facility] 04:31:00 [facility] HIGH SENSITIVITY TROPONIN I 2021-09-03 Adhi, Otis [facility] 04:31:00 [facility] LACTIC ACID, VENOUS 2021-09-03 Noahohun, Nhungwunmi [facility] 04:31:00 [facility] MAGNESIUM 2021-09-[address] [facility] 04:31:00 [facility] XR CHEST 1 VIEW PORTABLE / BEDSIDE 2021-09-[address] unmi [facility] 02:05:00 [facility] HIGH SENSITIVITY TROPONIN I 2021-09-02 Adhi, Otis [facility] 22:33:00 [facility] LACTIC ACID, VENOUS 2021-09-02 Falohun, Nhungwunmi [facility] 22:33:00 [facility] LACTIC ACID, VENOUS 2021-09-02 Nadimpalli, [facility] 19:28:00 [facility] BASIC METABOLIC PANEL 2021-09-02 Nadimpalli, [facility] 19:28:00 [facility] B-TYPE NATRIURETIC FACTOR (BNP) 2021-09-02 Ali, Kevona Cooper [facility] 17:17:00 [facility] PROCALCITONIN 2021-09-02 Ali, Hiba Cooper [facility] 17:17:00 [facility] HIGH SENSITIVITY TROPONIN I 2021-09-02 Ali, Hiba Cooper [facility] 17:17:00 [facility] LACTIC ACID, ARTERIAL 2021-09-02 Ali, Hiba Cooper [facility] 17:17:00 [facility] POCT-BLOOD GASES, ARTERIAL 2021-09-02 Ali, Hiba Cooper [facility] 17:15:00 [facility] POCT-SODIUM 2021-09-02 Ali, Hiba Cooper [facility] 17:15:00 [facility] POCT-POTASSIUM 2021-09-02 Ali, Hiba Cooper [facility] 17:15:00 [facility] POCT-HEMOGLOBIN 2021-09-02 Ali, Hiba Cooper [facility] 17:15:00 [facility] POCT-HEMATOCRIT 2021-09-02 Ali, Hiba Cooper [facility] 17:15:00 [facility] POCT-GLUCOSE 2021-09-02 Ali, Hiba Cooper [facility] 17:15:00 [facility] XR CHEST 1 VIEW PORTABLE / BEDSIDE 2021-09-02 Ali, Hiba Isaias ir [facility] 16:58:00 [facility] ECG 12-LEAD 2021-09-02 Unknown, Hl7 [facility] 16:50:07 [facility] ECG 12-LEAD 2021-09-02 Jing, Jerrell [facility] 16:50:07 [facility] ECG 12-LEAD 2021-09-02 Unknown, Hl7 [facility] 16:49:46 [facility] ECG 12-LEAD 2021-09-02 Unknown, Hl7 [facility] 16:49:46 [facility] ECG 12-LEAD 2021-09-02 Unknown, Hl7 [facility] 16:48:34 [facility] ECG 12-LEAD 2021-09-02 Unknown, Hl7 [facility] 16:48:19 [facility] CBC W/PLT COUNT & AUTO 2021-09-02 Ali, Hiba Cooper [facility] DIFFERENTIAL 05:14:00 [facility] CBC W/PLT COUNT & AUTO 2021-09-02 Ali, Hiba Cooper [facility] DIFFERENTIAL 05:14:00 [facility] BASIC METABOLIC PANEL 2021-09-02 Ali, Hiba Cooper [facility] 05:14:[address] [facility] [address] CHEST WITH IV CONTRAST 2021-09-01 Ali, Hiba Cooper [facility] 23:45:00 [facility] FERRITIN 2021-09-01 Ali, Hiba Cooper [facility] 17:14:00 [facility] IRON, TIBC, % SAT. (WITHOUT 2021-09-01 Ali, Hiba Cooper [facility] FERRITIN) 17:14:00 [facility] 2D ECHO W/ DOPPLER (CW/PW/COLOR) 2021-09-[address] [facility] 13:34:34 [facility] [place] ESOPH SWALLOW FUNCT WITH CINE 2021-09-[address] [facility] VIDEO 11:43:00 [facility] REPORT OF PROCEDURE - ENDOSCOPY 2021-09-01 Maria Teresa Meliza [facility] URL 08:31:23 [facility] ESOPHAGOGASTRODUODENOSCOPY 2021-09-[address] [facility] 07[facility]49:00 [facility] CBC W/PLT COUNT & AUTO 2021-09-01 Jonnie [address] D [facility] DIFFERENTIAL 05:48:00 [facility] CBC W/PLT COUNT & AUTO 2021-09-01 Jonnie, Yashash D [facility] DIFFERENTIAL 05:48:00 [facility] BASIC METABOLIC PANEL 2021-09-01 Jonnie, [facility] 05:48:00 [facility] HEPATIC FUNCTION PANEL 2021-09-01 Jonnie, Yashash D [facility] 05:48:00 [facility] PROTHROMBIN TIME/INR 2021-09-01 Jonnie, [facility] 05:48:00 [facility] MAGNESIUM 2021-09-01 Jonnie, Yashash D [facility] 05:48:00 [facility] PHOSPHORUS 2021-09-01 Jonnie, Yashash D [facility] 05:48:00 [facility] TSH/FREE T4 IF INDICATED 2021-09-[address] [facility] 05:48:00 [facility] ECG 12-LEAD 2021-08-31 Unknown, Hl7 [facility] 16:26:58 [facility] ECG 12-LEAD 2021-08-31 Unknown, Hl7 [facility] 16:26:58 [facility] SARS-COV2/RT-PCR ([facility]) 2021-08-[address] [facility] 14:36:00 [facility] LACTIC ACID, VENOUS 2021-08-[address] [facility] 12:48:00 [facility] CBC W/PLT COUNT & AUTO 2021-08-[address] [facility] DIFFERENTIAL 12:46:00 [facility] BASIC METABOLIC PANEL 2021-08-[address] [facility] 12:46:00 [facility] CBC W/PLT COUNT & AUTO 2021-08-[address] [facility] DIFFERENTIAL 12:46:00 [facility] HIGH SENSITIVITY TROPONIN I 2021-08-[address] [facility] 12:46:00 [facility] PROTHROMBIN TIME/INR 2021-08-[address] [facility] 12:46:00 [facility] APTT 2021-08-[address] [facility] 12:46:00 [facility] EKG-SCANNED 2021-08-[address] [facility] 00:00:00 [facility] ELECTROCARDIOGRAM COMPLETE 2021-07-18 Karon Christian [facility] 21:05:00 Medicine [place] ESOPHAGUS 2021-07-[address] [facility] 10:07:00 [facility] BASIC METABOLIC PANEL 2021-07-[address] 04:05:00 [facility] SARS-COV2/RT-PCR ([facility]) 2021-07-[address] [facility] 16:14:00 [facility] D-DIMER 2021-07-[address] [facility] 16:14:00 [facility] BLOOD GAS, VENOUS 2021-07-03 George, Thuyen [facility] 16:14:00 [facility] XR CHEST 2 VIEWS 2021-07-[address] [facility] 13:42:00 [facility] CBC W/PLT COUNT & AUTO 2021-07-[address] [facility] DIFFERENTIAL 13:28:00 [facility] B-TYPE NATRIURETIC FACTOR (BNP) 2021-07-[address] [facility] 13:28:00 [facility] COMPREHENSIVE METABOLIC PANEL 2021-07-[address] [facility] 13:28:00 [facility] CBC W/PLT COUNT & AUTO 2021-07-[address] [facility] DIFFERENTIAL 13:28:00 [facility] LIPASE 2021-07-[address] [facility] 13:28:00 [facility] HIGH SENSITIVITY TROPONIN I 2021-07-[address] [facility] 13:28:00 [facility] ECG 12-LEAD 2021-07-[address] [facility] 13:11:56 [facility] ECG 12-LEAD 2021-07-03 Unknown, Hl7 [facility] 13:11:56 [facility] EKG-SCANNED 2021-07-[address] [facility] 00:00:00 [facility] HEMOGLOBIN AND HEMATOCRIT 2021-05-[address] [facility] 04:39:00 [facility] PREPARE LEUKO-REDUCED RBC 2021-05-[address] [facility] 23:54:00 [facility] HEMOGLOBIN AND HEMATOCRIT 2021-05-25 Gadicherla, Noa [facility] 18:30:00 [facility] HEMOGLOBIN AND HEMATOCRIT 2021-05-25 Gadicherla, Noa [facility] 10:43:00 [facility] HEMOGLOBIN AND HEMATOCRIT 2021-05-25 Gadicherla, Noa [facility] 04:19:00 [facility] HEMOGLOBIN AND HEMATOCRIT 2021-05-[address] [facility] 16:22:00 [facility] HEMOGLOBIN AND HEMATOCRIT 2021-05-[address] [facility] 08:03:00 [facility] BASIC METABOLIC PANEL (7) 2021-05-[address] [facility] 08:03:00 [facility] TRANSFUSE LEUKO-REDUCED RED BLOOD 2021-05-[address] [facility] CELLS 01:55:00 [facility] SARS-COV2/RT-PCR ([facility]) 2021-05-[address] [facility] 19:01:00 [facility] TYPE AND SCREEN, AUTOMATED 2021-05-23 Rajha, Suellen [facility] 16:[facility]00 [facility] CBC W/PLT COUNT & AUTO 2021-05-23 Rajha, Suellen [facility]FFERENTIAL 16:24:00 [facility] CBC W/PLT COUNT & AUTO 2021-05-23 Rajha, Suellen [facility]FFER[facility] 16:24:00 [facility] PT/APTT 2021-05-23 Rajha, Suellen [facility] 16:24:00 [facility] COMPREHENSIVE METABOLIC PANEL 2021-05-23 Rajha, Suellen [facility] 16:23:00 [facility] LIPASE 2021-05-23 Rajha, Suellen [facility] 16:23:00 [facility] ECG 12-LEAD 2021-05-23 Unknown, Hl7 [facility] 15:13:04 [facility] EKG-SCANNED 2021-05-23 Provider, Default [facility] 00:00:[address] [facility] CBC W/PLT COUNT & AUTO 2021-05-20 Alao, Titilola [facility] DIFFERENTIAL 04:10:00 [facility] CBC W/PLT COUNT & AUTO 2021-05-20 Alao, Titilola [facility] DIFFERENTIAL 04:10:00 [facility] BASIC METABOLIC PANEL (7) 2021-05-20 Alao, Titilola [facility] 04:10:00 [facility] CBC (HEMOGRAM ONLY) 2021-05-[address] [facility] 03:43:00 [facility] BASIC METABOLIC PANEL (7) 2021-05-17 [facility] 03:[facility]00 [facility] HEMOGLOBIN AND HEMATOCRIT 2021-05-16 Raegan [facility] 20:11:00 [facility] REPORT OF PROCEDURE - ENDOSCOPY 2021-05-[address] [facility] URL 11:57:57 [facility] ESOPHAGOGASTRODUODENOSCOPY 2021-05-16 Jimmy Bowers [facility] 11:15:00 [facility] CBC W/PLT COUNT & AUTO 2021-05-[address] [facility] DIFFERENTIAL 04:48:00 [facility] CBC W/PLT COUNT & AUTO 2021-05-[address] [facility] DIFFERENTIAL 04:48:00 [facility] BASIC METABOLIC PANEL (7) 2021-05-[address] [facility] 04:48:00 [facility] HEMOGLOBIN AND HEMATOCRIT 2021-05-[address] [facility] 23:52:00 [facility] SARS-COV2/RT-PCR ([facility]) 2021-05-[address] [facility] 16:46:00 [facility] ECG 12-LEAD 2021-05-15 Unknown, Hl7 [facility] 15:26:10 [facility] TYPE AND SCREEN, AUTOMATED 2021-05-15 Iftikhar Stewardilemily [facility] 15:00:00 [facility] CBC W/PLT COUNT & AUTO 2021-05-[address] [facility] DIFFERENTIAL 15:00:00 [facility] CBC W/PLT COUNT & AUTO 2021-05-15 Alao, Titilola [facility] DIFFER[facility] 15:00:00 [facility] COMPREHENSIVE METABOLIC PANEL 2021-05-[address] [facility] 15:00:00 [facility] MAGNESIUM 2021-05-[address] [facility] 15:00:00 [facility] PHOSPHORUS 2021-05-[address] [facility] 15:00:00 [facility] HIGH SENSITIVITY TROPONIN I 2021-05-15 Alao, Titilola [facility] 15:00:00 [facility] XR CHEST 1 VIEW PORTABLE / BEDSIDE 2021-05-[address] [facility] 13:52:00 [facility] EKG-SCANNED 2021-05-15 Provider, Brigid [facility] 00:00:00 Scanning [facility] EGD (ENDO) 2019-04-22 Melida [facility] 12:55:59 Willy [facility] DAY SURGERY - ADC 2019-04-22 [facility] 05:01:00 Unassigned, No [place] [facility] Plan of Care Planned Activity Planned Date Details Comments Source Future Scheduled 2022-10-[address] [facility] Test 00:00:00 Counseling and Screening [facility] (12+) [code = Tobacco Cessation Counseling [...] 2021-12-07 ECHO, COMPLETE [code = Expected: [facility] Test 00:00:00 31397] 12/07/2021, of Medicine Expires: 04/11/2022 Future Scheduled 2021-10-12 ELECTROCARDIOGRAM [facility] College Test 08:58:20 COMPLETE [code = 01549] of M edicine Future Scheduled 2021-10-12 TETANUS SHOT (ADULT) [facility] College Test 08:34:44 [code = TETANUS SHOT of Medi cine (ADULT)] Future Scheduled 2021-10-12 BMI FOLLOW UP PLAN [code [facility] Test 08:34:44 = BMI FOLLOW UP PLAN] of Med icine Future Scheduled 2021-10-12 Hepatitis C screening [facility] Test 08:34:44 (procedure) [code = of Medic ine 835835852] Future Scheduled 2021-10-12 ZOSTER VACCINE (1 of 2) [facility] Test 08:34:44 [code = ZOSTER VACCINE of Me dicine (1 of 2)] Future Scheduled 2021-10-12 FALL SCREEN [code = FALL [facility] Test 08:34:44 SCREEN] of Medicine Future Scheduled 2021-10-12 Pneumococcal 65+ (1 of 1 [facility] Test 08:34:44 - PPSV23) [code = of Medicin e Pneumococcal 65+ (1 of 1 - PPSV23)] Future Scheduled 2021-10-12 FLU VACCINE > 6 MONTHS [facility] Test 08:34:44 [code = FLU VACCINE > 6 of M edicine MONTHS] Future Scheduled 2021-10-12 MEDICARE IPPE (WELCOME [facility] Test 08:34:44 TO MEDICARE) [code [...] Scheduled 2021-07-20 Pneumococcal 65+ (1 of 2 [facility] Test 15:04:42 - PPSV23) [code = of Medicin e Pneumococcal 65+ (1 of 2 - PPSV23)] Future Scheduled 2021-07-20 TETANUS SHOT (ADULT) [facility] Test 15:04:42 [code = TETANUS SHOT of Medi cine (ADULT)] Future Scheduled 2021-07-20 BMI FOLLOW UP PLAN [code [facility] Test 15:04:42 = BMI FOLLOW UP PLAN] of Med icine Future Scheduled 2021-07-20 Hepatitis C screening [facility] Test 15:04:42 (procedure) [code = of Medic ine 242010339] Future Scheduled 2021-07-20 ZOSTER VACCINE (1 of 2) [facility] Test 15:04:42 [code = ZOSTER VACCINE of Me dicine (1 of 2)] Future Scheduled 2021-07-20 FALL SCREEN [code = FALL [facility] Test 15:04:42 SCREEN] of Medicine Future Scheduled 2021-07-20 MEDICARE IPPE (WELCOME B [facility] Test 15:04:42 TO MEDICARE) [code = of Medi cine MEDICARE IPPE (WELCOME TO MEDICARE)] Future Scheduled 2021-07-20 FLU VACCINE > 6 MONTHS [facility] Test 15:04:42 [code = FLU VACCINE > 6 of M edicine MONTHS] Future Scheduled 2021-07-18 ELECTROCARDIOGRAM [facility] Test 15:05:03 COMPLETE [code = 64722] of M edicine Future Scheduled 2021-06-22 CBC W/AUTO DIFF WITH Ordered: [facility] Test 09:11:41 PLATELETS [code = 06/22/2021 of Medicin e 65376-5] Future Scheduled 2021-06-22 FERRITIN [code = Ordered: [facility] Test 09:11:41 55760-0] 06/22/2021 of Medicine Future Scheduled 2021-06-22 IRON+TIBC+%SAT [code = Ordered: B [facility] Test 09:11:41 NOCPT] 06/22/2021 of Medicine Future Scheduled 2021-06-22 TETANUS SHOT (ADULT) [facility] Test 08:19:01 [code = TETANUS SHOT of Medi cine (ADULT)] Future Scheduled 2021-06-22 Hepatitis C screening [facility] Test 08:19:01 (procedure) [code = of Medic ine 437755013] Future Scheduled 2021-06-22 ZOSTER VACCINE (1 of 2) [facility] Test 08:19:01 [code = ZOSTER VACCINE of Me dicine (1 of 2)] Future Scheduled 2021-06-22 FALL SCREEN [code = FALL [facility] Test 08:19:01 SCREEN] of Medicine Future Scheduled 2021-06-22 PNEUMOVAX >=65 (PPSV23) [facility] Test 08:19:01 [code = PNEUMOVAX >=65 of Me dicine (PPSV23)] Future Scheduled 2021-06-22 MEDICARE IPPE (WELCOME B [facility] Test 08:19:01 TO MEDICARE) [code = of Medi cine MEDICARE IPPE (WELCOME TO MEDICARE)] Future Scheduled 2021-06-22 FLU VACCINE > 6 MONTHS B [facility] Test 08:19:01 [code = FLU VACCINE [...] Department ID 2021-09-20 Outpatient 3 VICKY BELTRAN [id number] [facility] 15:05:33 [facility] [place] 2021-09-15 Outpatient 3 RUBY, ENC[facility] CRD [id number] [facility] 14:41:07 [facility] [place] 2021-09-14 Outpatient 3 [id number] ENC[facility] CRD [id number] [facility] 13:28:13 120[facility] [place] 2021-09-14 Outpatient 3 [id number] ENCPL REF [id number] [facility] 13:27:27 [facility] [place] 2021-09-14 Outpatient 3 [id number] ENCPL REF [id number] [facility] 13:27:13 1207 [facility] [place] 2021-05-28 Inpatient ER ELLA SLEAlexandra Gastro [id number] [facility] 12:00:47 FANWily-STIVEN 2021-11-21 2021-11-[address] [facility] [id number] 23:59:59 23:59:59 Event [facility] 2021-11-06 2021-11-[address] [facility] [id number] 00:00[facility]00 00:00:00 [facility] 2021-10-12 2021-10-12 Office GREG CHRISTIAN [id number] [place] [address] 08:21:22 11:05:40 Visit MAHBOOB AMBULATOR 350.1.13.21 College Y 0.2.7.2.686 of [id number] Medi eddie 375 e 2021-10-04 2021-10-[address] [facility] [id number] 09:00:00 09:30:00 Visit [facility] 2021-10-04 2021-10-04 Outpatient CHRIS PARK [facility] SLE [id number] SLE 08:41:28 08:41:28 [facility] 2021-08-31 2021-09-19 Hospital ER Alexa Fitzgerald [facility] [id number] [facility] 12:30:00 17:01:00 Encounter Michael Cristina Hiba Tahir [facility], Raz Saldivar, Bartolo Juan CarlosGabino 2021-08-31 2021-09-19 Inpatient ER JUAN CARLOS FRACISCO Surgery [id number] SLE 12:30:00 17:01:00 GABINO 2021-09-07 2021-09-07 Anesthesia Rocky, [facility] [id number] 07:58:00 15:09:00 Event Darrel Kelly [facility] 2021-09-07 2021-09-07 Surgery Ramya, [facility] [id number] 08:00:00 11:45:00 [facility] 2021-09-03 2021-09-03 Outpatient NAVYA CAMARILLO [id number] Navya 00:00:00 00:00:00 ELLIS Merrittol jaciel 2021-09-02 2021-09-02 Outpatient M [facility] [id number] [facility] 00:00:00 23:59:00 Colleg e of Medicin e 2021-09-01 2021-09-01 Surgery Maria Teresa, [facility] [id number] 08:00:00 09:00:[address] [facility] 2021-09-01 2021-09-[address] [facility] [id number] 08:01:00 08:36:00 Event [facility] 2021-08-31 2021-08-31 Outpatient [facility] [id number] [facility] 12:30:00 23:59:00 Colleg e of Medicin e 2021-08-31 2021-08-[address] [facility] [id number] 00:00:00 00:00:00 Only [facility] 2021-08-31 2021-08-31 Travel [facility] [id number] [facility] 00:[facility]:00 00:00:00 [facility] 2021-07-28 2021-08-04 Inpatient 3 VICKY BELTRAN [facility] [id number] [facility] 12:00:00 11:50:00 ALBA [facility]10 [facility] [place] 2021-07-18 2021-07-18 Outpatient BCM [facility] [id number] [facility] 15:48:01 16:26:04 Colleg e of Medicin e 2021-07-18 2021-07-18 Office GREG CHRISTIAN 1.2.840.114 [id number] [facility] 14:30:22 16:15:56 Visit MAHBOOB AMBULATOR 350.1.13.21 College Y 0.2.7.2.686 of [id number] Medi eddie 375 e 2021-07-03 2021-07-04 Emergency ER Tacos George [facility] [id number] 12:24:00 14:27:00 Darlene Sparks Yonas [facility] 2021-07-03 2021-07-04 Outpatient ER HASEEBDARLENE Krishna [facility] Emergency 20 [id number] [facility] 12:24:00 14:27:00 2021-07-03 2021-07-03 Outpatient [facility] [id number] [facility] 00:00:00 23:59:00 Colleg e [facility] Medicin e 2021-07-03 2021-07-[address] [facility] [id number] 00:00:00 00:00:00 Only [facility] 2021-07-03 2021-07-03 Travel [facility] [id number] [facility] 00:00:00 00:00:00 [facility] 2021-06-22 2021-06-22 Office REX SANCHEZ 1.2.840.114 [id number] [facility] 08:13:37 11:39:39 Visit RICK AMBULATOR 350.1.13.21 College Y 0.2.7.2.686 of [id number] Medi eddie 325 e 2021-05-23 2021-05-26 Hospital ER Oneil Gottlieb [facility] [id number] 15:12:00 15:03:00 Encounter Noa Ramirez [facility] 2021-05-232021-05-26 Inpatient ER JAMES, [facility] Emergency 20 [id number] SLE 15:12:00 15:03:00 NOA 2021-05-23 2021-05-23 Outpatient BCM BCM [id number] [facility] 00:00:00 23:59:00 Colleg e of Medicin e 2021-05-23 2021-05-23 Travel [facility] [id number] [facility] 00:00:00 00:00:00 [facility] 2021-05-20 2021-05-20 Emergency ER Ala, [facility] [id number] 06:07:00 06:08:00 [facility] 2021-05-20 2021-05-20 Emergency ER SLE Emergency [id number] SLE 01:57:00 01:57:00 2021-05-20 2021-05-20 Travel [facility] [id number] [facility] 00:00:00 00:00:00 [facility] 2021-05-15 2021-05-17 Emergency ER Tara, [facility] [id number] [facility] 12:10:00 12:56:00 Bar Toledo stephanie [facility] 2021-05-16 2021-05-[address] [facility] [id number] 11:24:00 12:17:00 Event Joyce Boss [facility] 2021-05-16 2021-05-16 Surgery [facility], [facility] [id number] 11:00:00 12:00:00 [facility] 2021-05-15 2021-05-15 Outpatient BCM [facility] [id number] [facility] 00:00:00 23:59:00 [facility] e 2021-05-15 2021-05-15 Emergency ER SLE Emergency [id number] SLE 12:00:00 12:00:00 2021-05-15 2021-05-15 Travel [facility] [id number] [facility] 00:00:00 00:00:00 [facility] 2021-04-29 2021-04-29 Outpatient BCM BCM [id number] [facility] 00:00:00 23:59:00 [facility] 2021-04-28 2021-04-28 Outpatient BCM BCM [id number] [facility] 12:32:00 23:59:00 Colleg e [facility] Medicin e 2019-04-22 2019-04-22 [facility] 1.2.840.114 [id number] [facility] 06:15:00 08:56:00 Encounter e, Jenar Herb [place] 350.1.13.10 [place].2.[place] [id number] [facility] [address] [place] [address] 2019-04-22 2019-04-22 [facility] 1.2.840.114 [id number] 06:15:00 08:56:00 Encounter e, Katy Loyola 350.1.13.10 [place] 4.2.7.2.686 Surgical [id number] [place] [address] 2019-04-22 2019-04-22 Anesthesia [facility] 1.2.840.114 [id number] [facility] 07:54:00 08:13:00 Jaden Loyola 350.1.13.10 i [place] 4[place] [id number] [facility] 020 Branch 2019-04-22 2019-04-22 Anesthesia [facility] 1.2.840.114 [id number] 07:54:00 08:13:00 Jaden Loyola 350.1.13.10 [place] 4.2.7.2.686 Surgical [id number] [place] [address] 2019-04-22 2019-04-22 Orders Doctor MURILLO 1.2.840.[id number] [place] [address] 00:00:00 00:00:00 Only Unassigned, ANA MARIA 350.1.13.10 ity of [place] [facility] 4.2.7.2.686 Tomas as [id number] [place] [address] Branch 2019-04-22 2019-04-22 Orders Doctor LIDIA 1.2.840.114 [id number] 00:00:00 00:00:00 Only Unassigned, ANA MARIA 350.1.13.10 [place] [facility] 4.2.7.2.686 [id number] Results Test Description Test Time Test [...] NOT 1092) ACCURATE CRE ATININE CLEARANCE IN [place] EDICTING GLOMERULAR FILT RATION RATE. ESTIMATED GFR IS NOT APPLICABLE FOR DIALYSIS PATIENTS. Principal Network Architect ID - KEARA WOperator ID - KAYLEEN [id number] 04:56:54 Test Item Value Reference Range Interpretation Comments PHOSPHORUS (BEAKER) (test code = 4.1 mg/dL 2.3-4.7 604) Principal Network Architect ID - KEARA [id number] 04:56:53 Test Item Value Reference Range Interpretation Comments MAGNESIUM (BEAKER) (test code = 2.1 mg/dL 1.6-2.6 627) Principal Network Architect ID - KEARA WCALCIUM, [id number] 04:30:35 Test Item Value Reference Range Interpretation Comments CALCIUM IONIZED (BEAKER) (test 1.13 mmol/L 1.12-1.27 code = 698) PH, BLOOD (BEAKER) (test code = 7.47 1810) PROTHROMBIN [id number] 04:04:47 Test Item Value Reference Range Interpretation Comments PROTIME (BEAKER) 27.1 seconds 11.9-14.2 H (test code = 759) INR (BEAKER) (test 2.54 See_Comment [Automat ed message] code = 370) The system [employer] generated this result transmitted ref erence range: <=5.90. The reference range was not used to int erpret this result as normal/abnormal . RECOMMENDED COUMADIN/WARFARIN INR THERAPY RANGESSTANDARD DOSE: 2.0 - 3.0 Includes: PROPHYLAXIS for venous thrombosis, systemic embolization; TREATMENT for venous thrombosis and/or pulmonary embolus.HIGH RISK: Target INR is 2.5-3.5 for patients with mechanical heart valves.CBC W/PLT COUNT & AUTO [id number] 03:57:43 Test Item Value Reference Range Interpretation [...] (BEAKER) (test code = 2801) COMPREHENSIVE METABOLIC [id number] 11:28:15 Test Item Value Reference Range Interpretation [...] S NOT APPLICABLE FOR DIALYSIS PATIEN TS. Principal Network Architect ID - PIAYA LRAD, CHEST, 1 VIEW, NON [id number] 07:44:00Reason for exam:->S/p Ct SurgeryShould this be performed at the bedside?->Yes [facility] 1945 Sex: MFINAL REPORT RAD, CHEST, 1 VIEW, NON DEPT INDICATION: S/p Ct Surgery COMPARISON:Prior day's exam FINDINGS: Portable frontal view of the chest. IMPRESSION: Support Lines: Overlying leads. Lungs and pleura: Bibasilar atelectasis and basilar opacities, unchanged. No significant pneumothorax. Heart and mediastinum: Stable contours. Additional findings: None. Signed: Gaby Cordero Verified Date/Time: 09/18/2021 07:44:52 [place] Location: [facility]iology [place] Room PROTHROMBIN [id number] 04:28:26 Test Item Value Reference Range Interpretation Comments PROTIME (BEINESSA) 24.0 seconds 11.9-14.2 H (test code = 759) INR (BEAKER) (test 2.18 See_Comment [Automat ed message] code = 370) The system [employer] generated this result transmitted ref erence range: <=5.90. The reference range was not used to int erpret this result as normal/abnormal . RECOMMENDED COUMADIN/WARFARIN INR THERAPY RANGESSTANDARD DOSE: 2.0 - 3.0 Includes: PROPHYLAXIS for venous thrombosis, systemic embolization; TREATMENT for venous thrombosis and/or pulmonary embolus.HIGH RISK: Target INR is 2.5-3.5 for patients with mechanical heart valves.[id number] 04:17:02 Test Item Value Reference Range Interpretation Comments MAGNESIUM (BEAKER) (test code = 2.0 mg/dL 1.6-2.6 627) Principal Network Architect ID - [id number] 04:17:02 Test Item Value Reference Range Interpretation Comments PHOSPHORUS (BEAKER) (test code = 3.6 mg/dL 2.3-4.7 604) Principal Network Architect ID - DBBASIC METABOLIC [id number] 04:17:01 Test Item Value Reference Range Interpretation [...] S NOT APPLICABLE FOR DIALYSIS PATIEN TS. Principal Network Architect ID - DBCALCIUM, [id number] 03:53:15 Test Item Value Reference Range Interpretation Comments CALCIUM IONIZED (BEAKER) (test 1.13 mmol/L 1.12-1.27 code = 698) PH, BLOOD (BEAKER) (test code = 7.47 1810) CBC W/PLT COUNT & AUTO [id number] 03:52:23 Test Item Value Reference Range Interpretation [...] PERCENT (BEAKER) (test code = 2801) POC-Glucose [id number] 17:37:37 Test Item Value Reference Range Interpretation Comments POC-Glucose Meter (test 160 mg/dL 70-110 H : TE STED AT [facility] code = 1538) [address] [place] [address], [facility] 30: Principal Network Architect/Techni bart ID = [id number] for Rowe, Mariss a Lab Interpretation (test Abnormal code = 41052-5) [facility] [id number] 17:37:37 Test Item Value Reference Range Interpretation Comments POC-Glucose Meter (test 160 mg/dL 70-110 H : TE STED AT [facility] code = 1538) [address] [place] [address], [facility] 30: Principal Network Architect/Techni bart ID = [id number] for Rowe, Mariss a Lab Interpretation (test Abnormal code = 99046-1) [facility] [id number] 17:37:37 Test Item Value Reference Range Interpretation Comments POC-Glucose Meter (test 160 mg/dL 70-110 H : TE STED AT [facility] code = 1538) [address] [place] [address], [facility] 30: Principal Network Architect/Techni bart ID = [id number] for Rowe, Mariss a Lab Interpretation (test Abnormal code = 31255-1) [facility] [id number] 17:37:37 Test Item Value Reference Range Interpretation Comments POC-GLUCOSE METER 160 mg/dL 70-110 H : TESTED A T [facility] 6720 (BEAKER) (test code = [facility], 1538) [address]: Principal Network Architect/Techni bart ID = [id number] for Ba rrera, Sammie POCT-GLUCOSE [id number] 12:40:04 Test Item Value Reference Range Interpretation Comments POC-GLUCOSE METER 126 mg/dL 70-110 H : TESTED A T [facility] 6720 (BEAKER) (test code = [facility], 1538) [address]: Principal Network Architect/Techni bart ID = [id number] for Sammie Mercado [id number] 08:29:45 Test Item Value Reference Range Interpretation Comments PHOSPHORUS (BEAKER) (test code = 4.0 mg/dL 2.3-4.7 604) Principal Network Architect ID - TETSFYFYBFP1762-16-14 08:29:44 Test Item Value Reference Range Interpretation Comments MAGNESIUM (BEAKER) (test code = 2.1 mg/dL 1.6-2.6 627) Principal Network Architect ID - DBPOCT-GLUCOSE [id number] 08:09:33 Test Item Value Reference Range Interpretation Comments POC-GLUCOSE METER 91 mg/dL 70-110 : TESTED A T [facility] 6720 (BEAKER) (test code = [place], 1538) [address]: Principal Network Architect/Techni bart ID = [id number] for Sammie Lawson CBC W/PLT COUNT & AUTO [id number] 06:42:04 Test Item Value Reference Range Interpretation [...] PERCENT (BEAKER) (test code = 2801) PROTHROMBIN TIME/[id number] 06:23:57 Test Item Value Reference Range Interpretation Comments PROTIME (BEAKER) 23.1 seconds 11.9-14.2 H (test code = 759) INR (BEAKER) (test 2.08 See_Comment [Automat ed message] code = 370) The system Lol[employer] generated this result transmitted ref erence range: <=5.90. The reference range was not used to int erpret this result as normal/abnormal . RECOMMENDED COUMADIN/WARFARIN INR THERAPY RANGESSTANDARD DOSE: 2.0 - 3.0 Includes: PROPHYLAXIS for venous thrombosis, systemic embolization; TREATMENT for venous thrombosis and/or pulmonary embolus.HIGH RISK: Target INR is 2.5-3.5 for patients with mechanical heart valves.CALCIUM, [id number] 05:53:20 Test Item Value Reference Range Interpretation Comments CALCIUM IONIZED (BEAKER) (test 1.13 mmol/L 1.12-1.27 code = 698) PH, BLOOD (BEAKER) (test code = 7.48 1810) RAD, CHEST, 1 VIEW, NON [id number] 05:22:00Reason for exam:->S/p Ct SurgeryShould this be performed at the bedside?->Yes [facility] : 1945 Sex: MFINAL REPORT RAD, CHEST, 1 VIEW, NON DEPT INDICATION: S/p Ct Surgery COMPARISON:Prior day's exam FINDINGS: Portable frontal view of the chest. IMPRESSION: Support Lines: None Lungsand pleura: Unchanged scattered bilateral parenchymal opacities. No new consolidation. No pneumothorax. Heart and mediastinum: Stable contours. Additional findings: None. Signed: Halley Osullivan Verified Date/Time: 09/17/2021 05:22:46 POCT-GLUCOSE [id number] 21:59:07 Test Item Value Reference Range Interpretation Comments POC-GLUCOSE METER 118 mg/dL 70-110 H : TESTED A [employer] 6720 (Douguo) (test code = DOMIN[facility], 153) [address]: Principal Network Architect/Techni bart ID = [id number] for Co rtez, [place] [id number] 17:58:41 Test Item Value Reference Range Interpretation Comments MAGNESIUM (BEAKER) (test code = 2.0 mg/dL 1.6-2.6 627) Principal Network Architect ID - KEARA WPOCT-GLUCOSE [id number] 17:29:30 Test Item Value Reference Range Interpretation Comments POC-GLUCOSE METER 123 mg/dL 70-110 H : TESTED A T [facility] 6720 (Douguo) (test code = DOMIN[facility], 153) [address]: Principal Network Architect/Techni bart ID = [id number] for Ba rrera, Sammie POCT-GLUCOSE [id number] 12:52:33 Test Item Value Reference Range Interpretation Comments POC-GLUCOSE METER 122 mg/dL 70-110 H : TESTED A T [facility] 6720 (BEAKER) (test code = [facility], 1538) [address]: Principal Network Architect/Techni bart ID = [id number] for Sammie Mercado BASIC METABOLIC [id number] 08:28:13 Test Item Value Reference Range Interpretation [...] S NOT APPLICABLE FOR DIALYSIS PATIEN TS. Principal Network Architect ID - KEARA WPOCT-GLUCOSE [id number] 07:58:49 Test Item Value Reference Range Interpretation Comments POC-GLUCOSE METER 82 mg/dL 70-110 : TESTED A T [facility] 6720 (BEAKER) (test code = [facility] [place], 1538) [address]: Principal Network Architect/Techni bart ID = [id number] for Sammie Lawson RAD, CHEST, 1 VIEW, NON [id number] 07:01:00Reason for exam:->S/p Ct SurgeryShould this be performed at the bedside?->Yes [facility] 1945 Sex: MFINAL REPORT RAD, CHEST, 1 VIEW, NON DEPT INDICATION: S/p Ct Surgery COMPARISON: Prior day's exam FINDINGS: Portable frontal view of the chest. IMPRESSION: Support Lines: Interval removal of right chest tube. Lungs and pleura: Unchanged diffuse interstitial thickening, representing singly or in combination, interstitial edema and/or pneumonitis. No significant pneumothorax. Heartand mediastinum: Stable contours. Additional findings: None. Signed: Gaby Cordero Verified Date/Time: 09/16/2021 07:01:13 PHOSPHORUS 2021-09-16 05:10:07 Test Item Value Reference Range Interpretation Comments PHOSPHORUS (BEAKER) (test code = 4.4 mg/dL 2.3-4.7 604) Principal Network Architect ID - KEARA LBQRKSLEVI9778-89-32 05:10:06 Test Item Value Reference Range Interpretation Comments MAGNESIUM (BEAKER) (test code = 2.0 mg/dL 1.6-2.6 627) Principal Network Architect ID - KEARA [id number] 04:45:18 Test Item Value Reference Range Interpretation Comments PTT (test code = 46.4 See_Comment H [Automated message] 08617-1) The system Lolabox generated this result transmitted ref erence range: 22.5 - 3 6.0 seconds. The reference range was not used to int erpret this result as normal/abnormal . Lab Interpretation (test Abnormal code = 24838-0) [facility] CenteraPTT2022-01-29 04:45:18 Test Item Value Reference Range Interpretation Comments PTT (test code = 46.4 See_Comment H [Automated message] 74638-0) The system [employer]ol[employer] generated this result transmitted ref erence range: 22.5 - 3 6.0 seconds. The reference range was not used to int erpret this result as normal/abnormal . Lab Interpretation (test Abnormal code = 00670-6) [facility]era[facility]TT2022-[facility]-29 04:45:18 Test Item Value Reference Range Interpretation Comments PTT (test code = 46.4 See_Comment H [Automated message] 03722-6) The system [employer]ol[employer] generated this result transmitted ref erence range: 22.5 - 3 6.0 seconds. The reference range was not used to int erpret this result as normal/abnormal . Lab Interpretation (test Abnormal code = 57209-5) [facility] CenterAPTT2022-01-29 04:45:18 Test Item Value Reference Range Interpretation Comments PARTIAL THROMBOPLASTIN TIME 46.4 seconds 22.5-36.0 H (BEAKER) (test code = 760) PROTHROMBIN TIME/[id number] 04:44:13 Test Item Value Reference Range Interpretation Comments PROTIME (BEAKER) 18.3 seconds 11.9-14.2 H (test code = 759) INR (BEAKER) (test 1.54 See_Comment [Automat ed message] code = 370) The system [employer]ol[employer] generated this result transmitted ref erence range: <=5.90. The reference range was not used to int erpret this result as normal/abnormal . RECOMMENDED COUMADIN/WARFARIN INR THERAPY RANGESSTANDARD DOSE: 2.0 - 3.0 Includes: PROPHYLAXIS for venous thrombosis, systemic embolization; TREATMENT for venous thrombosis and/or pulmonary embolus.HIGH RISK: Target INR is 2.5-3.5 for patients with mechanical heart valves.CALCIUM, [id number] 04:42:58 Test Item Value Reference Range Interpretation Comments CALCIUM IONIZED (BEAKER) (test 1.12 mmol/L 1.12-1.27 code = 698) PH, BLOOD (BEAKER) (test code = 7.47 1810) CBC W/PLT COUNT & AUTO [id number] 04:35:30 Test Item Value Reference Range Interpretation [...] PERCENT (BEAKER) (test code = 2801) POCT-GLUCOSE [id number] 20:58:14 Test Item Value Reference Range Interpretation Comments POC-GLUCOSE METER 104 mg/dL 70-110 : TESTED A T [facility] 6720 (BEAKER) (test code = [facility], 1538) [address]: Principal Network Architect/Techni bart ID = [id number] for Pam Donovan POCT-GLUCOSE [id number] 17:20:16 Test Item Value Reference Range Interpretation Comments POC-GLUCOSE METER 93 mg/dL 70-110 : TESTED A T [facility] 6720 (BEAKER) (test code = [facility], 1538) [address]11[address]: Principal Network Architect/Techni bart ID = [id number] for VÍCTOR MURILLO POCT-GLUCOSE [id number] 12:15:47 Test Item Value Reference Range Interpretation Comments POC-GLUCOSE METER 122 mg/dL 70-110 H : TESTED A T [facility] 6720 (BEAKER) (test code = [facility], 1538) [address]: Principal Network Architect/Techni bart ID = [id number] for VÍCTOR GRIMALDO POCT-GLUCOSE [id number] 07:26:33 Test Item Value Reference Range Interpretation Comments POC-GLUCOSE METER 95 mg/dL 70-110 : TESTED A T [facility] 6720 (BEAKER) (test code = [facility], 1538) 113[address]: Principal Network Architect/Techni bart ID = [id number] for VÍCTOR MURILLO RAD, CHEST, 1 VIEW, NON [id number] 07:09:00while patient is intubated or has chest tubes.Reason for exam:->Status post CV SurgeryShould thisbe performed at the bedside?->Yes [facility] BACH : 1945 Sex: MFINAL REPORT CLINICAL [...] MDReport Verified Date/Time: 09/15/2021 07:09:45 Reading Location: [facility] Radiology Reading Room HEALTHepatic function [id number] 04:57:12 Test Item Value Reference Range Interpretation Comments Protein, Total (test 5.4 See_Comment L [Autom ated code = 2885-2) message] The system which generated this result transmit dante reference range : 6.0 - 8.3 gm/dL . The reference range was not u sed to interpret th is result as normal/abnormal . Albumin (test code = 2.9 g/dL 3.5-5.0 L 49197-9) Total Bilirubin (test 1.1 mg/dL 0.2-1.2 code = 1975-2) Bilirubin, Direct 0.6 mg/dL 0.1-0.5 H (test code = 1968-7) Alkaline Phosphatase 170 U/L 40-150 H (test code = 6768-6) AST (test code = 26 U/L 5-34 1920-8) ALT (test code = 43 U/L 6-55 1742-6) EMERSON (test code = EMERSON) Principal Network Architect ID - PIAYA L Lab Interpretation Abnormal (test code = 27670-4) [facility] CenterHepatic function [id number] 04:57:12 Test Item Value Reference Range Interpretation Comments Protein, Total (test 5.4 See_Comment L [Autom ated code = 2885-2) message] The system which generated this result transmit dante reference range : 6.0 - 8.3 gm/dL . The reference range was not u sed to interpret th is result as normal/abnormal . Albumin (test code = 2.9 g/dL 3.5-5.0 L 02995-7) Total Bilirubin (test 1.1 mg/dL 0.2-1.2 code = 1974-) Bilirubin, Direct 0.6 mg/dL 0.1-0.5 H (test code = 1967-) Alkaline Phosphatase 170 U/L 40-150 H (test code = 6768-6) AST (test code = 26 U/L -34 1920-8) ALT (test code = 43 U/L 1742-6) EMERSON (test code = EMERSON) Principal Network Architect ID - PIAYA L Lab Interpretation Abnormal (test code = 96276-4) [facility] CenterHepatic function [id number] 04:57:12 Test Item Value Reference Range Interpretation Comments Protein, Total (test 5.4 See_Comment L [Autom ated code = 2885-2) message] The system which generated this result transmit dante reference range : 6.0 - 8.3 gm/dL . The reference range was not u sed to interpret th is result as normal/abnormal . Albumin (test code = 2.9 g/dL 3.5-5.0 L 03419-3) Total Bilirubin (test 1.1 mg/dL 0.2-1.2 code = 1974-) Bilirubin, Direct 0.6 mg/dL 0.1-0.5 H (test code = 1967-) Alkaline Phosphatase 170 U/L 40-150 H (test code = 6768-6) AST (test code = 26 U/L -34 1920-8) ALT (test code = 43 U/L 1742-6) EMERSON (test code = EMERSON) Principal Network Architect ID - PIAYA L Lab Interpretation Abnormal (test code = 46487-2) [facility] CenterHEPATIC FUNCTION [id number] 04:57:12 Test Item Value Reference Range Interpretation [...] (test code = 43 U/L 6-55 347) Principal Network Architect ID Patrick BEYER [id number] 04:57:11 Test Item Value Reference Range Interpretation Comments MAGNESIUM (BEAKER) (test code = 2.0 mg/dL 1.6-2.6 627) Principal Network Architect ID - KAYLEEN [id number] 04:57:11 Test Item Value Reference Range Interpretation Comments PHOSPHORUS (BEAKER) (test code = 3.8 mg/dL 2.3-4.7 604) Principal Network Architect ID Patrick BEYER LBASIC METABOLIC [id number] 04:57:10 Test Item Value Reference Range Interpretation [...] S NOT APPLICABLE FOR DIALYSIS PATIEN TS. Principal Network Architect ID - KAYLEEN [id number] 04:49:45 Test Item Value Reference Range Interpretation Comments PARTIAL THROMBOPLASTIN TIME 44.9 seconds 22.5-36.0 H (BEAKER) (test code = 760) PROTHROMBIN TIME/[id number] 04:48:43 Test Item Value Reference Range Interpretation Comments PROTIME (BEAKER) 16.0 seconds 11.9-14.2 H (test code = 759) INR (BEAKER) (test 1.30 See_Comment [Automat ed message] code = 370) The system Lol[employer] generated this result transmitted ref erence range: <=5.90. The reference range was not used to int erpret this result as normal/abnormal . RECOMMENDED COUMADIN/WARFARIN INR THERAPY RANGESSTANDARD DOSE: 2.0 - 3.0 Includes: PROPHYLAXIS for venous thrombosis, systemic embolization; TREATMENT for venous thrombosis and/or pulmonary embolus.HIGH RISK: Target INR is 2.5-3.5 for patients with mechanical heart valves.CBC W/PLT COUNT & AUTO [id number] 04:46:45 Test Item Value Reference Range Interpretation [...] PERCENT (BEAKER) (test code = 2801) CALCIUM, [id number] 04:42:09 Test Item Value Reference Range Interpretation Comments CALCIUM IONIZED (BEAKER) (test 1.11 mmol/L 1.12-1.27 L code = 698) PH, BLOOD (BEAKER) (test code = 7.48 1810) Prepare Leuko-Red [id number] 23:55:00 Test Item Value Reference Range Interpretation Comments CROSSMATCH (test code = 2264) COMPATIBLE Unit ABO (test code = A Pos 9733354) UNIT NUMBER (test code = [id number] 934-0) Status (test code = 9754172) [facility] Blood [facility] Product (test code RED BLOOD CELLS = 2263) PRODUCT CODE (test code = S4395A60 933-2) [facility] Center[facility]are Leuko-Red [id number] 23:55:00 Test Item Value Reference Range Interpretation Comments CROSSMATCH (test code = 2264) COMPATIBLE Unit ABO (test code = A Pos 3083214) UNIT NUMBER (test code = [id number] 934-0) Status (test code = 1817881) [facility] Blood Bank Product (test code RED BLOOD CELLS = 2263) PRODUCT CODE (test code = Z5529F56 933-2) [facility] CenterPrep[facility] Leuko-Red [id number] 23:55:00 Test Item Value Reference Range Interpretation Comments CROSSMATCH (test code = 2264) COMPATIBLE Unit ABO (test code = A Pos 7430936) UNIT NUMBER (test code = [id number] 934-0) Status (test code = 2346235) TX_TIMEINCHART Blood Bank Product (test code RED BLOOD CELLS = 2263) PRODUCT CODE (test code = S8322T49 933-2) [facility] CenterMAGNESIUM2022-01-27 21:30:13 Test Item Value Reference Range Interpretation Comments MAGNESIUM (BEAKER) (test code = 2.0 mg/dL 1.6-2.6 627) Principal Network Architect ID - KAYLEEN LPOCT-GLUCOSE [id number] 21:14:24 Test Item Value Reference Range Interpretation Comments POC-GLUCOSE METER 118 mg/dL 70-110 H : TESTED A T [facility] 6720 (BEAKER) (test code = [place], 1538) [address]: Principal Network Architect/Techni bart ID = [id number] for MORELIA WEBB BASIC METABOLIC [id number] 09:32:00 Test Item Value Reference Range Interpretation [...] S NOT APPLICABLE FOR DIALYSIS PATIEN TS. Principal Network Architect ID - KAYLEEN LCBC W/PLT COUNT & AUTO [id number] 09:06:06 Test Item Value Reference Range Interpretation [...] 2D Echo W/Doppler(CW/PW/Color)2021-09-14 08:48:39Ejection FractionSLEH ECHO HEARTLAB [facility] W/Doppler(CW/PW/Color)2021-09-14 08:48:39Ejection FractionSLEH ECHO HEARTLAB [facility]2D Echo W/Doppler(CW/PW/Color) 2021-09-14 08:48:39Ejection FractionSLEH ECHO HEARTLAB [facility] CenterPOCT-GLUCOSE [id number] 07:35:25 Test Item Value Reference Range Interpretation Comments POC-GLUCOSE METER 91 mg/dL 70-110 : TESTED A T [facility] 6720 (BEAKER) (test code = BRIJESHSHAKIRA [facility], 1538) [address]: Principal Network Architect/Techni bart ID = [id number] for CINDI DAVALOS BASIC METABOLIC [id number] 06:05:56 Test Item Value Reference Range Interpretation [...] S NOT APPLICABLE FOR DIALYSIS PATIEN TS. Principal Network Architect ID - PIAYA EPATIC FUNCTION [id number] 06:05:56 Test Item Value Reference Range Interpretation [...] Specimen moderately (test code = 347) hemolyzed Principal Network Architect ID - KAYLEEN [id number] 06:05:55 Test Item Value Reference Range Interpretation Comments MAGNESIUM (BEAKER) 2.3 mg/dL 1.6-2.6 Specimen moderately (test code = 627) hemolyzed Principal Network Architect ID - KAYLEEN [id number] 06:05:55 Test Item Value Reference Range Interpretation Comments PHOSPHORUS (BEAKER) 3.8 mg/dL 2.3-4.7 Specimen moderately (test code = 604) hemolyzed Principal Network Architect ID - KAYLEEN [id number] 05:42:58 Test Item Value Reference Range Interpretation Comments PARTIAL THROMBOPLASTIN TIME 39.1 seconds 22.5-36.0 H (BEAKER) (test code = 760) PROTHROMBIN TIME/[id number] 05:42:16 Test Item Value Reference Range Interpretation Comments PROTIME (BEAKER) 14.8 seconds 11.9-14.2 H (test code = 759) INR (BEAKER) (test 1.18 See_Comment [Automat ed message] code = 370) The system [employer]ol[employer] generated this result transmitted ref erence range: <=5.90. The reference range was not used to int erpret this result as normal/abnormal . RECOMMENDED COUMADIN/WARFARIN INR THERAPY RANGESSTANDARD DOSE: 2.0 - 3.0 Includes: PROPHYLAXIS for venous thrombosis, systemic embolization; TREATMENT for venous thrombosis and/or pulmonary embolus.HIGH RISK: Target INR is 2.5-3.5 for patients with mechanical heart valves.CALCIUM, [id number] 05:36:36 Test Item Value Reference Range Interpretation Comments CALCIUM IONIZED (BEAKER) (test 1.07 mmol/L 1.12-1.27 L code = 698) PH, BLOOD (BEAKER) (test code = 7.42 1810) RAD, CHEST, 1 VIEW, NON [id number] 02:39:00while patient is intubated or has chest tubes.Reason for exam:->Status post CV SurgeryShould thisbe performed at the bedside?->Yes [facility] 1945 Sex: [...] Halley Osullivan Verified Date/Time: 09/14/2021 02:39:11 POCT-GLUCOSE [id number] 22:16:46 Test Item Value Reference Range Interpretation Comments POC-GLUCOSE METER 116 mg/dL 70-110 H : TESTED A T [facility] 6720 (BEAKER) (test code = [facility] Srikanth [facility], 1538) [address]: Principal Network Architect/Techni bart ID = [id number] for VISHAL GAINES BASIC METABOLIC [id number] 17:49:41 Test Item Value Reference Range Interpretation [...] S NOT APPLICABLE FOR DIALYSIS PATIEN TS. Principal Network Architect ID - JACQUELINE [id number] 17:49:41 Test Item Value Reference Range Interpretation Comments MAGNESIUM (BEAKER) (test code = 2.2 mg/dL 1.6-2.6 627) Principal Network Architect ID - JACQUELINE CPOCT-GLUCOSE [id number] 17:28:04 Test Item Value Reference Range Interpretation Comments POC-GLUCOSE METER 153 mg/dL 70-110 H : TESTED A T [facility] 6720 (BEAKER) (test code [facility], = 1538) [address]: Principal Network Architect/Techni bart ID = [id number] for Ritchie h, Silvana POCT-GLUCOSE [id number] 11:25:51 Test Item Value Reference Range Interpretation Comments POC-GLUCOSE METER 122 mg/dL 70-110 H : TESTED A T [facility] 6720 (BEAKER) (test code = [facility], 1538) [address]1995: Principal Network Architect/Techni bart ID = [id number] for PH INISEE, ABDOULAYE [id number] 11:03:29 Test Item Value Reference Range Interpretation Comments MAGNESIUM (BEAKER) (test code = 2.0 mg/dL 1.6-2.6 627) Principal Network Architect ID - JACQUELINE CBASIC METABOLIC [id number] 11:03:28 Test Item Value Reference Range Interpretation [...] S NOT APPLICABLE FOR DIALYSIS PATIEN TS. Principal Network Architect ID - JACQUELINE CVenous doppler arm, [id number] 10:17:08Ejection FractionSLEH ECHO HEARTLAB [facility]CK[facility] CenterVenous [facility], [id number] 10:17:08Ejection FractionSLEH ECHO HEARTLAB MKCKESSON [facility] CenterVenous doppler arm, [id number] 10:17:08Ejection FractionSLEH ECHO HEARTLAB MKCKHENRY [facility] F[facility]ILITYON [facility] CenterType and screen, [id number] 09:38:00 Test Item Value Reference Range Interpretation Comments ABO/RH AUTOMATED (BEAKER) (test A POSITIVE code = 2260) Ab Scrn (test code = 890-4) NEGATIVE [facility] SunsetType and screen, [id number] 09:38:00 Test Item Value Reference Range Interpretation Comments ABO/RH AUTOMATED (BEAKER) (test A POSITIVE code = 2260) Ab Scrn (test code = 890-4) NEGATIVE [facility] CenterType and screen, [id number] 09:38:00 Test Item Value Reference Range Interpretation Comments ABO/RH AUTOMATED (BEAKER) (test A POSITIVE code = 2260) Ab Scrn (test code = 890-4) NEGATIVE [facility] CenterRAD, CHEST, 1 VIEW, NON [id number] 08:40:00while patient is intubated or has chest tubes.Reason for exam:->Status post CV SurgeryShould thisbe performed at the bedside?->Yes [facility] : 1945 Sex: [...] MDReport Verified Date/Time: 09/13/2021 08:40:29 Reading Location: [facility] Radiology Reading Room POCT-GLUCOSE [id number] 08:01:34 Test Item Value Reference Range Interpretation Comments POC-GLUCOSE METER 89 mg/dL 70-110 : Notified RN/MD: TESTED ([place]) (test code = AT [facility] [address] [facility] 8598) [facility], 770 30: Principal Network Architect/Techni bart ID = [id number] for ABDOULAYE KATZ PROTHROMBIN TIME/[id number] 04:58:25 Test Item Value Reference Range Interpretation Comments PROTIME (BEAKER) 15.6 seconds 11.9-14.2 H (test code = 759) INR (BEAKER) (test 1.26 See_Comment [Automat ed message] code = 370) The system [employer] generated this result transmitted ref erence range: <=5.90. The reference range was not used to int erpret this result as normal/abnormal . RECOMMENDED COUMADIN/WARFARIN INR THERAPY RANGESSTANDARD DOSE: 2.0 - 3.0 Includes: PROPHYLAXIS for venous thrombosis, systemic embolization; TREATMENT for venous thrombosis and/or pulmonary embolus.HIGH RISK: Target INR is 2.5-3.5 for patients with mechanical heart valves.CBC W/PLT COUNT & AUTO [id number] 03:26:57 Test Item Value Reference Range Interpretation [...] (BEAKER) (test code = 2801) BASIC METABOLIC [id number] 02:43:59 Test Item Value Reference Range Interpretation [...] is on LVAD, which may hemolyze the blood.Principal Network Architect ID - KAYLEEN LHEPATIC FUNCTION [id number] 02:43:59 Test Item Value Reference Range Interpretation [...] Specimen moderately (test code = 347) hemolyzed Principal Network Architect ID - KAYLEEN [id number] 02:43:58 Test Item Value Reference Range Interpretation Comments PHOSPHORUS (BEAKER) 3.1 mg/dL 2.3-4.7 Specimen moderately (test code = 604) hemolyzed Principal Network Architect ID - KAYLEEN [id number] 02:43:57 Test Item Value Reference Range Interpretation Comments MAGNESIUM (BEAKER) 2.0 mg/dL 1.6-2.6 Specimen moderately (test code = 627) hemolyzed Principal Network Architect ID - KAYLEEN LOperator ID - KAYLEEN [id number] 02:41:16 Test Item Value Reference Range Interpretation Comments PARTIAL THROMBOPLASTIN TIME 44.3 seconds 22.5-36.0 H (BEAKER) (test code = 760) CALCIUM, [id number] 02:05:55 Test Item Value Reference Range Interpretation Comments CALCIUM IONIZED (BEAKER) (test 1.10 mmol/L 1.12-1.27 L code = 698) PH, BLOOD (BEAKER) (test code = 7.43 1810) Blood gas, [id number] 02:04:48 Test Item Value Reference Range Interpretation Comments pH, Declan (test code = 7.43 7.32-7.42 H 2746-6) pCO2, Declan (test code = 38 See_Comment L [Aut omated message] 755) The system [employer] generated this result transmit dante reference range : 41 - 51 mm Hg. The reference range was not used to interpret this result as normal/abnormal . pO2, Declan (test code = 40 See_Comment [Auto mated message] 2705-2) The system [employer] generated this result transmit dante reference range : 25 - 40 mm Hg. The reference range was not used to interpret this result as normal/abnormal . O2 Sat, Declan (test code 76.6 % 40.0-70.0 H = 2711-0) HCO3, Declan (test code = 25 mmol/L 21-29 60537-8) Base Excess, Declan (test 0.9 mmol/L -2.0-3.0 code = 1927-3) Patient Temperature 37.0 (test code = 8310-5) FIO2 (test code = 1819) 21 Lab Interpretation Abnormal (test code = 96482-3) [id number] 02:04:48 Test Item Value Reference Range Interpretation Comments pH, Declan (test code = 7.43 7.32-7.42 H 2746-6) pCO2, Declan (test code = 38 See_Comment L [Aut omated message] 755) The system [employer] generated this result transmit dante reference range : 41 - 51 mm Hg. The reference range was not used to interpret this result as normal/abnormal . pO2, Declan (test code = 40 See_Comment [Auto mated message] 2705-2) The system [employer] generated this result transmit dante reference range : 25 - 40 mm Hg. The reference range was not used to interpret this result as normal/abnormal . O2 Sat, Declan (test code 76.6 % 40.0-70.0 H = 2711-0) HCO3, Declan (test code = 25 mmol/L 21-29 65211-1) Base Excess, Declan (test 0.9 mmol/L -2.0-3.0 code = 1927-3) Patient Temperature 37.0 (test code = 8310-5) FIO2 (test code = 1819) 21 Lab Interpretation Abnormal (test code = 74427-9) [facility] [id number] 02:04:48 Test Item Value Reference Range Interpretation Comments pH, Declan (test code = 7.43 7.32-7.42 H 2746-6) pCO2, Declan (test code = 38 See_Comment L [Aut omated message] 755) The system [employer] h generated this result transmit dante reference range : 41 - 51 mm Hg. The reference range was not used to interpret this result as normal/abnormal . pO2, Declan (test code = 40 See_Comment [Auto mated message] 2705-2) The system [employer] generated this result transmit dante reference range : 25 - 40 mm Hg. The reference range was not used to interpret this result as normal/abnormal . O2 Sat, Declan (test code 76.6 % 40.0-70.0 H = 2711-0) HCO3, Declan (test code = 25 mmol/L 21-29 44580-2) Base Excess, Declan (test 0.9 mmol/L -2.0-3.0 code = 1927-3) Patient Temperature 37.0 (test code = 8310-5) FIO2 (test code = 1819) 21 Lab Interpretation Abnormal (test code = 64034-1) [facility] GAS, [id number] 02:04:48 Test Item Value Reference Range Interpretation [...] (BEAKER) (test code = 1819) 21.0 POCT-GLUCOSE [id number] 22:07:43 Test Item Value Reference Range Interpretation Comments POC-GLUCOSE METER 105 mg/dL 70-110 : TESTED A T [facility] 6720 ([place]) (test code = [facility], 1538) [address]: Principal Network Architect/Techni bart ID = [id number] for GO VISHAL LOZA POCT-GLUCOSE [id number] 16:18:37 Test Item Value Reference Range Interpretation Comments POC-GLUCOSE METER 118 mg/dL 70-110 H : Notified RN/MD: (BRAX[place]) (test code = TESTED AT [facility] 6720 1538) [place], [address]: Principal Network Architect/Techni bart ID = [id number] for PH INMEÑO, ABDOULAYE Tissue [id number] 14:59:34 Test Item Value Reference Range Interpretation Comments Case Report (test code Surgical Pathology = 104) Report Case: [id number] Authorizing Provider: Colby Penny, Collected: 09/07/2021 12:07 PM Ordering Location: [facility] Received: 09/07/2021 03:40 PM PERIOPERATIVE SERVICES Pathologist: Ciro Diamond MD Specimen: Mitral Valve, MITRAL VALVE DIAGNOSIS (test code = [id number] 3220) uZzEwMzNcZnRuYmpcdWMxIH tccnRmMVxlcGljOTYwMVxhb bPaWVYpdGBmR9SryvwdPYdz BJ5gMY8vyVphfYVtkEUiQDY cCuOch3bjh249tRLzv0fwMG CWrdjdpTc8pPxoI98nx8T3D cjuG47ruIBpGJN1JIBeYEMd gVUpZJOmHMK0HJJixELkR4s mTYEeCW6yopqdVDxcOYfiWP EliWK1ZLFfoYLgL7KtBEAdB MjbRFYuowm4WzUeTi8dfPYk eTcyMFxwYXJkXHBsYWluXGZ zMjAgTUlUUkFMIFZBTFZFLC YICUWEP3rBZdrrjOPbTPHMN KACWWJCASCAD5UGNPLZCZZZ JZBMB0OLCEUVDGpVUKSHNNH YD8BPTVFJGTAQC7MEHHFGLA bVXNTJU9VYWV6LWSYfxu22Z MH8GfUzc4W7AAI7ZCEeEKMd s8pvIHTbyLFeAaFyPyGnDgO pUkqlyMYlUOBbRsCqr6zbi4 31rGHnt5qyPKYePsL5gQJeK DTkdPGjV384MFZbRKpkv1nd f3MqMSBnkNQvs8R5GVEGlmb hdZt9gDzyD00yu2X0UnfwJ7 uqOJCxUIKeS7TaCR8sOWDoV bh8AEQ7RLU9WWRfRMZjN9Qn HZ9bFGTafSDeHVj1d3wjfOk oIGHtKBQ1o4amNMtvxxRrGI 2zat0izKl5o1klqjDmCOTnH CPuwDWAIAMzH0NpjMgeVv4y pKb7kRteYtiySUC2Uux2SQ9 gvx05hdv4eFhfSRKdgfuuCv E4UBmnVWPzyqnjGBn5VPteM XOimYI6PURdoQMjC7RxBGKz FH9imse9BTA7BFhjAEAaFtL 0RTCspVEzJIFnhBfbVXgis8 08LIZ3ZdJbNH4cE4Lya0H0u O5ewGYuAHJkuIGoStNoBXRt tu6loGDhXIlfj7FwMUU3fhU 4sJGmgQFgUJItBqH7DZpaMC 5ywv50MLLzXJV9pi4pcNMoa DaogcLqcROvEOtxE7YpUZJh o493KHYwQ3YrKZOhx8D7haX kNrBwKHPncKE2reK9CZCwAB 5frqecq6dbGSrjCQnrKUPfr eN5ksK8FYOxyDCtR4ZbkG3p VYVnJG4butrrf1tkCBB5ISc eNNJlUMO0MkCaNGWxn7Xyhz v9BfAhx4UwqPCxIEhlO09ix 307CEHdamXxD7wenKMkiopc rSRkigwuJPquwrE9ISRwNZv szbteZDZpSXuyM9ohMoUcXL NycHgyEWovl8DqYOLhSKOoK dDqrLOuRZSpBgz5FONvbJRi ZSKzTyKmE4xfggogRqOSUSH xm9gxI5xgwXKZoGVvT5XdXM hvbmUgTGluZTogNzEzLTYxN V76ALW6FTVmmh42 CPT Code(s) (test code v0txkIEqPCMhzME2EkQnKYJ = 3357) iq7dwe7PanICqjRXbQZsteZ VliaQgzj16yGX2nO26QZ8mF WEkSiI7IXKfhaE8Cgm9TRNz OHSseBGnX683j1npf5onvlK xmJY5uTbnNKHjlfnzXfM8LG dwOVIsbsnkOEy4BKetTVMzc XN0BUEibQVjD1ZsMUNnUA9h tdq8WAD2OVbxNUKvKzW3VVU oyYAqSNSkzTvtOYjpt308DU W0WcIqBQRiqsOgnKipxG0tM jTbUZJ3GABmWYyyTPC9 CLINICAL HISTORY (test h9jxyLGsCEZenZQ3FbMuOPT code = 3356) nk8idd3InjKTxsRMeYSucdY MptwYkot26zZQ0oX35HG6xV LMsYuI7AQNuukI4Ood1CLPx CVVrhXOuP492c1hjd8sigrC yeHE3wXjiGWXplgsbEpV2WV ixFHCvnwfzYHu5ZMhbQTYlo LX2BDBwnQHzS9JkIDZmCU6b ajf1CTD0PAolAKIbJlA4SIN sfUArIFQgfLcbAEinp814AG K8RaZfZLXodyZjsIimhP7bF nMyMCBBdHJpYWwgZmlicmls mBL4lG9iRQHsgZUiAToteaI mkuZvsH1tnKGkpRPiZO6zyS xwYXJ9 SPECIMEN SOURCE (test r6hzdCKoFANqtRT6ZcFyJNQ code = 3377) pl3iwc1EnrNLefWHgAGkslU ThboCjxq06yLN3lG74HS8hR ACqImM6DXPikbF2Nqd8CSAp DIIvpZVfZ094o8abe1zyceH fgKI0pUxuPIZaozpiJvS7XU clAFUyqhvoBRt6CMzjTXPfz ZR9OGWucHXmK6NgPJQlUN1o hta0BMM8ZNuyACKsYsO0TZS cnQKjTVEyrRjiOLyte113EY R9CjJfTAJshjIroVapvK5sX nMyMCBNaXRyYWwgdmFsdmVc cGFyfQ== GROSS DESCRIPTION a6darXQmSKEggOLkNuBiTRU (test code = 3366) uDSWsv5dyRNTziNIsNkRvAj NcZnRuYmpcdWMxXGRlZmYwe 8uew752tJKqx0vmOAKnHkX4 fRCbSDPgxPOhP980x7ncm9t dlsYpyIP6JHLlKJF2THvpuz YiimH1ILdygJPzZgU1OXgin iQcZPhlmoMpafGwHmn5CZQe J234LKA4aRyrc4sjTHQ9IRJ zUFOfMyFxOp2jrRYlH039AG IjHSJMHBUcyBn2DSSeoxDkd xAbyODYw466B796y6apKBHt umEkwIpNvimwy5drT359CZE hcGVydzEyMjQwXHBhcGVyaD C5OBKjRU5hcbioKaZtWE2wr pnlSwTrBS0ueft0XqSgQJ8e cmdiNzIwXGhlYWRlcnkwXGZ fi1XgnvwuOJ4rL7Wax4V4uR 9maXRcZGVmdGFiNzIwXGZvc i7ahTApRUyfz8NxNER3xwS4 uCOhpFOmUNMoYE88Okbca0Y sIzjdYXS0TMSjfoCpq3Fjc9 svCqAcbaZgP0wtK5YlDYYpO NWpFGCeFlTrvcYcx8Kry6Sz mMNufUc9w1cpXUAzZYTlgHq xt6llKIE2KXOzX2S2aENxl1 gdINtgTJBlyLH4ixbdPEolG TWftiJ6lhnpSKqcDNMckDB8 dnrnZYaeBFCaWnQ5tqufKCs cABNlESX3OJvar614WHS1XS xzYmtwYWdlXHBnbmNvbnRcc GduZGVjXHBsYWluXHBsYWlu XGYwXGZzMjRccWxccGxhaW5 cIqLqYpFuZSahGN4vTHMgE4 blfHVjVOHmBKHcO2nvHrTtj B2saTbnWQoobiSzEQFzMCYh F6AnkpCvPNHeRYIzKYbwYpF tMPQla5l0uTH9aSUlqPB0rH LdiGwcFkGqOZ7obWGpVQ1vZ XkyPHjgnaMff9RmVL14dTBd hxBawbYbQf5rcLEtrWV3PZq 2ZSIgaXMgYSAzLjcgeCAzLj CqnKWkPeHsP04evVThQT1lr QxqayXlh2I6lI3kUP2qNZvm dOmudy48pBt6RJust7sbY5t 2pVkyjLndS1ceeqEiOSDwgV O7yYNuVIHni9O6DJ7rZOZaX ZFmPLamQXRoq04wxLmiOC9l oO46VH6dLYS6hBSnhBOaNMX 1cIwoa1BnBDHgJ0ztgzBbKO C5ID3xmU0fFLCnIJQDiKAhk 9IpY9mzOL3lyUIzh7HoyJDw hKqel9GvgOmrvfDtEKCaUFO ylvUrqt5iavHnVRDwe33vJA SdLKmaKC93sVGrOPEpHASAY DLwEWEinkNtfVd2GXCuGYN8 pE1budKfzmUis4HnaIn6oHU kIGluIEExLlxwYXJccGFyIE YvAJaxKGVpT3HwvZ7rPE1LM iovSFJdXUISF7MhD44muAOp fQ== MICROSCOPIC o6rpnEMgJPJjpQL3TfCpJNO DESCRIPTION (test code io3kgd1UwzWBivXEwNAkveR = 3371) YoxuCypu30zWH2cY29AU5kN DCnLcX5DSZabyJ9Ftf3WAWx OYGdzPPaC831v7asx3hkekY bxGJ5xTazDVXqmqfiNuD9QO ueJLSnkflgBVr6SWvkQTShe RX3TASerXXcU9AcRWOpRM0a aom3TMJ4XAxxQFDmQeO9QZM mpPBxLUMqmEayKFkcg082WT M8PaLvOANyseXivGztwX6vG pZkTAMKUOVqw0QaOOFuYKPt cn0= Gross assessment was [facility] performed at ([facility], code = 2777) Department of Pathology, [address] [place] [address], Technical component [facility] was performed at ([facility], code = 2778) Department of Pathology, [address] [place] [address], Professional component [facility] was performed at ([facility], code = 2779) Department of Pathology, [address] [place] [address], [facility] [id number] 14:59:34 Test Item Value Reference Range Interpretation Comments Case Report (test code Surgical Pathology = 104) Report Case: [id number] Authorizing Provider: Ramya Colby Markhamnetta, Collected: 09/07/2021 12:07 PM Ordering Location: [facility] Received: 09/07/2021 03:40 PM PERIOPERATIVE SERVICES Pathologist: Ciro Diamond MD Specimen: Mitral Valve, MITRAL VALVE DIAGNOSIS (test code = [id number] 3220) uZzEwMzNcZnRuYmpcdWMxIH tccnRmMVxlcGljOTYwMVxhb oFgEJGujUCeU8ArgpitWYbl QM9dUH6xzPfdgHOahSUoWZH dLkNfi5kud393mPLzf3mgSP YAxqmxwFx3sMfcI05zn2V0S okaT82nsMCmGVN3RVOuHFXo dTDdWZRnGRG0GWVclPHdQ4i yBDJiTG6zzkjxMEbnDNojBO CxzUV9QCRolIOeE1OlPKIwQ LztSWCttxs1TuClRp6daONk eTcyMFxwYXJkXHBsYWluXGZ zMjAgTUlUUkFMIFZBTFZFLC NRVLFMU2wYYjgurHAwTNAOF YVUPZYBEQATA1KTZOEMFRPU MQFFN0LEUHEKSPrACVRTIGD ZF5KBGMVJVNJXG6MAUHLVXH mGKDJZH5TUKZ4HTHGdat58X YI9AwEjs9K6UMM8IIDwPHKb a0xwVLHcyIHcSvTpYbEfPsO gArewwNHbPRApQqYti1lfe0 85yDEzn6vtWNSmMwV0fNLxX GJjnAVwB167ZNKdNPgco5wo n3JlKBRfhGMfc4L4RWMDmmg crQd7kOsmO70me9F7NvzrQ3 fyYVLuFBQgG5KkUR3jOSDsK ff9WAN0PLY4UNVoRMKbY3It KQ5kBSYlwMOmHYj2x2endPz vSQCtJWR6u1xjKCesgwExCR 3srj5ssAs7r3trptNfLRCqK NRerIHBSVEoF5KbmIctQi8v uNl6oGmpIsppRMS5Jzz6YY4 tfr21wjr9pFrsOIRwqbfcWn W0DKynDYZfhfvpLXf9TVcrD CZsnFB3DOTvaYTuZ8OoIYGg KF8vzpq8JYD9XSprRAOgKgJ 4CUZbaVPeUDFioKvuGOsve9 43INU4ArPsEN9tR1Plt7G1s P5kfLDoUJNkyRPaEfFiADEc tn8sfCDeLPzjs4TtTOO7ftT 8mWDsgWIcADMkLwU1LVvhBJ 8lsh94GOZxRQI8mt9skEDuq WmvaiFkiYMxPRtmP5ImMUCd r054PZLdJ7PoQVYmo4G9vyM qVmDoZSWukIV9iiR7HVRzBB 1twupxb6rjCUkzQPjuSJWmp iR6syM7ANFzuKCiD6TqyC4x VXQwUL8rujlsp5rvKAK1WTm uXDVwXKH6NtTaKGWid5Owwq u9YxZxj8CveJImQVioK37dn 269EGDwufPtW4pqfWAamicm xUHxtpfcTZbwngG4FVLbHBe iyebiYEAzBHseL6voJiLaIG NkyXnxFQfls9XmRDYuSAXjT pGiwWWxYUQdAvt9UEBpbREi NNXrTmAkI5oasaypAmBKAIX qk4htD4ltpFERxIWfP3LlLG hvbmUgTGluZTogNzEzLTYxN Y36BXX8MWSvcv70 CPT Code(s) (test code x2htpIQqGBBbpXI3ArYwVFM = 3357) rz6qwx4HmpJOrdQEkMDudeT OcngXnaf12eGI6gN72GF5tS WRaMiB5RBKwjxG1Ean1OJEi XKLspXCgN264m0bbj8lvckN tiEV9dGzfPYFpwadaHpK9MU nlSKUbgsmwSBm9XVnyJHQfk ZU5HKKgzNYzX7TwKUEiFM8w orx0ZSB4HOfvFPEhCnF8CCT rdXGeLQWfqLkxILfnk212IA W4QgUrSFZnhiVykMiagU3jO dAaWOA7BBQlCZgeLEN1 CLINICAL HISTORY (test k4msrYVzNFBooLN3GgLtZEM code = 3356) mz5fld1UauASfrBXqKPoqcT PjwgItaz07iJY0gT28RA2tV UDgZoR1UXJuthA7Qim2SZCt WJScyIEmP847f8sig5yzjgL puLT0dYbtGAOatgnaTlS3OI scGDHdzpvxDHm1JFgxLXGcx UK3BOYanTBtV4NnETMxJL0i bpv6HQO0UXgpTLUwMmC7FYJ wvVVvIGJkeXnnIWpkl539WO D6WsRvRIUijuDnpMammU7fQ nMyMCBBdHJpYWwgZmlicmls wNG9hB8bNHGcyQAzRRbmeoW xcjOsuV9ihRNazSEvNR7fwI xwYXJ9 SPECIMEN SOURCE (test s9kelWXnGXLjsZU3NcTqGZG code = 3377) xu3qur2KgqYWjmRTwWRqtlV JmgnSqsr71jTQ3pV21ES5zT WNmUfY8IRRwteI8Kfq6TCHl AMJdnCPpL632j6ktr2dsrdU utJY8aGwzBJMmxoyzJdD0VS ukMHPsbneoCUu0JDstGBMnp PT8STXbxVHqD0WtNLGrRX4t bvv9NBC2BRitKYWqZlP8RUC geBPgUUVhuHjlNIoqb961QZ L2IaQlZJDwyiPznVrmsL5gY nMyMCBNaXRyYWwgdmFsdmVc cGFyfQ== GROSS DESCRIPTION d4cobUXqGFZdgNZhGzKmSHC (test code = 3366) cCDKzr8roURAojIStVzXaOf NcZnRuYmpcdWMxXGRlZmYwe 0auu232pJBaw8bnZBJiVvK8 fKIcOSUhcOWfQ001r7hvy4f jltBitOK8XMRqGJN8GGxsus YoioK0TNcwtCPbXzM7FJhnl cSxCMzuglZjxoBtNas8OGUv T237TSA9bXxyd8jgJNF2RGY aNPWqZaTzTx3syKOxG816HP OlDYRQFPTxxOl9ZOMmfhDtu mRkgTMAr465X467p2xpZVHk lmAqnPoFzcsnd7yoX768VHI hcGVydzEyMjQwXHBhcGVyaD E5YMTdZR9uikpiUtYoKS8lr lvlDpJbSW2kjfk7CwNvIR8x cmdiNzIwXGhlYWRlcnkwXGZ pg2YtehvtHP8fZ0Srp4V5tB 9maXRcZGVmdGFiNzIwXGZvc d9vrTWhIEhmy6BqOIS4raB7 zDStsAUiERUdZI02Huiie6Q hRlmvLTZ5MDLejiDua9Uny3 ocMcBfvgAzK1irI6AnIALbW LZiOBLhRiKbrwIer8Amg8Rv eJVwpDy2b3xkHOZaGKGwbXo cq7gxOTO2YFPiC3N9hFOdc3 olVSfsJNSjnEQ5xwtyFHskF SCvkdM5djzpNEvgJIVtpUB4 pyyrDUaoSYKpXcV0rqehJMh cQXYtLBA8YFodt067SXV6QU xzYmtwYWdlXHBnbmNvbnRcc GduZGVjXHBsYWluXHBsYWlu XGYwXGZzMjRccWxccGxhaW5 hIvOwAtWcNIqdVY5kVJPlO8 gqhOLpZDMgFTMwG2zoBxWmc U2eiZxtQLhctuBjJBUpRMXp R1BbxmSqWMJqFAUuAVcdNyG qCNXzj3e9pTI5tJXprEO5sU TskMxkKiSbVW7dhBBoBZ2hR AuwXQwaqjAnn5KyGA15jGJm kxZkazMfZt9wgKMfrRC8TKl 2ZSIgaXMgYSAzLjcgeCAzLj KdfWFfSvCfX27kjTPuCL9jn WuwfcSzh8Y0iA1dEE4rFVxk rMnags49hVt3KRjcu5nbF3c 9dCbufMvuT4zuzeFmDFAynJ G0rUOnRGAma9N6KL6vNDPxC GZwXLmtIQDjy85bpIhcNP8g fK83OY7kFST3aXLagLIgMSG 5wZnre8RgLUMeA5fxicMaKV Y7GM2xaC5sHLXeGEYPsMTuu 1QfE6qkAS6ksIFtl3NjfFBq cOoyl1UxeIxzpaXrEQYaGFV woiPdpz3ihtZcJOUca33gIQ NnNOiwRW13cLFyXRZgOAKGH AUlLFUcorAqjNa4JEByEKE1 pD7cvcOnbtKua3DikRj8vTL kIGluIEExLlxwYXJccGFyIE HtJReiNVKpQ9UofH5kNZ3ST birFUIhXZLRT6AwU98itADg fQ== MICROSCOPIC d9pbmOEiHGDarEY4LwEhXFY DESCRIPTION (test code yo7aap6VqpZGtgYYyTUzydQ = 3371) HvdcBesk78bWI3kH29PY7sV WQnJmL7FXRgbbV4Uoq7OOSv UATvjHQsQ885g4gux7igakL lqDE3dHogKHEncqlwQiY3CF ksISHjnobcFBy4KOvgYQEde BH7FOGxwYBiQ3SoFCHyCW5o aqs9ZRM5TYnmNHLtUkM3ZWO itAHqOMDyjZsgUEmtw936ZF X7IvObNBNivjNkhQoggI0tC mLlAZNSVEZvz2DmYTSlSSBz cn0= Gross assessment was [facility] performed at ([facility], code = 2777) Department of Pathology, [address] [place] [address], Technical component [facility] was performed at ([facility], code = 2778) Department of Pathology, [address] [place], [place] [id number], Professional component [facility] was performed at ([facility], code = 2779) Department of Pathology, [address] [place] [address], [facility] [id number] 14:59:34 Test Item Value Reference Range Interpretation Comments Case Report (test code Surgical Pathology = 104) Report Case: [id number] Authorizing Provider: Colby Penny, Collected: 09/07/2021 12:07 PM Ordering Location: [facility] Received: 09/07/2021 03:40 PM PERIOPERATIVE SERVICES Pathologist: Ciro Diamond MD Specimen: Mitral Valve, MITRAL VALVE DIAGNOSIS (test code = [id number] 3220) KatieEwMzNcZnRuYmpcdWMxIH tccnRmMVxlcGljOTYwMVxhb pVhKYJybGUsC0UkwkcdWAha BG5nCB9scUvbdKUieGSxPAD tLyKni3dxr467nFSyr5xqEH VFzctkdOi0cEyaZ15pr2K4B nbiR32ruCQiJRZ6IWOhYFQb yEBgGMErFXO9NITywGYmB7g wOYYqFN3fedlaUXxqYYnzDQ QtvAV2AGIvpXLxN5XkIOBxH MwtCKLoffq6NpWsQm1apXMh eTcyMFxwYXJkXHBsYWluXGZ zMjAgTUlUUkFMIFZBTFZFLC ZUPPGOX6nLRojlkWOnQSAGZ XQMOFQTGRDZO6OFDBOZHGHX RHHAG1JMRGMEESaNCAELAMB MR7DVVCBUZKSVI6MCRNGOMS uFTGJZM8WKAP6GWVNffa76X WX0AgFny1W5LLM0SLDiJLMk y0plKZBjyEWeWpRzMiJaXjQ xMnoeiBZqGSRxInLet1nwt5 47vEPnv7vxYKUcOhW1gIQjN ZIwmNKrW864LQVcMToho8mr f9QdDLMbfZYqe9I4SYSMdea ilPq6kYevG93eq6A4ZzjaD2 iqILUaAAAcR9PqPZ8qVLSeK eg1QAX5SIT9QCXgODCuK1As PN1tPYUnnMCtHMh9i4adgVe oEYPxNFC3g5nkFIvvoaRyHM 7vsa8qaSt9y3bjetQcFQHdD AHmoTGZLOPgH9WghZolWy6w mEc2kZwtHqpgTLB7Pqa8UA1 qag56qyt2zKefDCVlcfrgZr H7OQhbWQWobikbCKy5LCiiV DFylGZ8SOSgbMNrH5MyHKMh HE7iaml8IUW1ZBjfQFHuSkQ 2UVWwlYRwHWRshCddFUwhm9 30URV7TfLzIK0jL8Wqf3B6k X5awBAyPXPymEVbCfUlQWXh op4isRGkZRmgj8VyGDD4bkK 3fGQkeAGvHSKfLcC9TNyoDK 2kdl18WYEiJUH8bm0zwGHsc OcpojYtxEPeWZquI7ArXGGf a687SEXhP8HcFZOnn7J4akW mLgKwSCOrpWE6znU0UNWwUG 2bztcyw3gvVIqtRIygNEMzj kK6ymW5UVUgdXFiB8AzfE1p SQLxTG3xyuuta6tsJIL9WUs vDTRuBNS8KnKpYNRve2Njpx c8HmXdl8OujKPzWQcbO15xx 805VOVtbbNzU1xsiZAmihot sNRltgtsIBssflI3IOOtWDu noowzBBVbKKojP2noGtXtBK FaqHniHQrtu0TiLODiPTDdZ fXwiFDlOXSlSax7JHTzzRQb PSBqJeAdQ7ugadgkFyEXVDN xo7kuB1yoaLJXoLQqQ7GzFT hvbmUgTGluZTogNzEzLTYxN S06XNV3GYApbo08 CPT Code(s) (test code a8jfyHGqBCOgnBQ2YtHaJKB = 3354) ds7cju5WreHAixDTxKClguY PeehPrit89kGC6iH08EC1gI KQkHdP4JJUxmgO1Dwn7RDIy TMFbuWEfI764s6jkg7gphmX hdHJ0tTzzHTSzgrhrEhB2LC kpOFVksgwhAFo0NIgfAOAfl BA5TVUsnNLsZ3RtYWJcEO7u dup2VAI4DQwsNFFyOqD5JDW pyMEjNZFnpEovUZhli261FG M9SeWnPPLfkoCtlXopfH5zE jPfUIK9HAFxAEynCSM6 CLINICAL HISTORY (test y0qchVHoEZZmwJP0EkHtCIN code = 3356) zl4fod7OdeRCplMMgTZcvhV ZkkzWbrs04zDS1qQ66WZ6jE JDrSgE6DQDeuyL0Cxu8IJDj QWEfnCLpE734l1ndr1vyhgJ tyZV9wYlaWNTofxfbWrY4PN kaHUQcejazMNk5ELmqZAOoj IJ1MSAxwRZjM4UeMMTkUL3h czs1HHX2MFybRAFkLhX7KQA jiQDuGGTlpVraSOxzz381AP X8GpQdGCKcupQknYilsC3lY nMyMCBBdHJpYWwgZmlicmls lVV3iE6lOEWnsQQwETqzcpA jgsRlfT4edGHheVOaOH8vvO xwYXJ9 SPECIMEN SOURCE (test i6evtZSsZBYjzWW7DnPjSSD code = 3377) xm9tyu9MkuKLgpRKvGRuzyV DxqrWwkp37qIB9vS80EE1xF KUlBiC7UVKzcjQ4Agh1OLVo MQJdhTHzN396l5maw5ftyzX pwFE8bYvpCPZxlwnmGoU5VH eoEZOwprdtTDg3LJdkMOMxv HO7NOIwwYHfD4IhMOAyKE5w jlf7EZB0TVqyGIQdQwW8XAP okOHlCWRgdBliSTwgf625LN G8UrOqBTIkjaJddTttsF1tH nMyMCBNaXRyYWwgdmFsdmVc cGFyfQ== GROSS DESCRIPTION p8vshSLuZINpgXPjFqRdIQH (test code = 3366) uCXKoh7uhNKUvdDKcJlTgSr NcZnRuYmpcdWMxXGRlZmYwe 2hew088pITiw0flKQBeVjD3 eYRgRIYzeNSpJ207p4qam8e pgcOmcOG1IMYpLHA1DYhghx BggrQ2QGzjpSRoDlI2BOxep vQiCAwrfqUjraTaBok7KAMc D214QSL3vLjpw4wrOSP2VLV yZYQjElGhWv8ifHFxV432ZF KhZWNHSWLgqEw5EFKoaqQkt rYncSZZn915L706s0daUVXr qhBrmDoWkfjkl0qpT586GFO hcGVydzEyMjQwXHBhcGVyaD J7QOGqDS3ehlklMsTfAW1zx heuYsDeET5iyqp7ArIaBM5n cmdiNzIwXGhlYWRlcnkwXGZ ft5NavvpyJR8yV4Mtr4E4aE 9maXRcZGVmdGFiNzIwXGZvc b4xmMFwIYccb8UaNEF7zqW2 pCAfjSVjAZJbAU98Sqyoe0G zUpzuKDZ1KVIyndNtf8Hvj9 pcRsRufzPiF9azQ2KqRQYvP JAyQDVhZbDefgByf5Seu4Jn vAYklRb9v3txUMInESVchVf xb0isXHE6EYKkV6X5sHAmm4 eeIStbJDSqcGR9kvowRDylJ UKcbbR8gbhsIGufMVPdiYZ3 jlgpCHanUAHbNcH3igywDWv vATLlAIC1QHumw891PXZ8VX xzYmtwYWdlXHBnbmNvbnRcc GduZGVjXHBsYWluXHBsYWlu XGYwXGZzMjRccWxccGxhaW5 wKkEsTzAqYTmhYT2kVRJaP6 jcbNHiJBKaQVZaH2hgKmYek X5vjLcqVJeswzKtHYTwATOs N3VdmoYlKZMkWKErVFzmZpN oCUJlh1y3jRH9fBTvrPK7lE NciVazRiKbUQ7uuGLpRI5iI FhyJVpxntBup1OnQK04jMBx zyLvkkLeYu0ifZJjfOS6SBb 2ZSIgaXMgYSAzLjcgeCAzLj CodBDrUdUxC10phHSbGB4eh YqhuhMef4R6uX5iTR8bPYli qWbvnd61tSj4AHxje7osU9k 0hPackGoeO6uxweCrYGGfuG K0jJHyHCWfo7M7QR2wJKErB QYzUDosVEJam10zxKnaOO2x vX76AF7jDEC4jLXglWAeEXK 0qAqvw8StFTLqJ2hywpTyHC S5YP8bdO8cVTQhCPPLjZDrg 2OrY2ckHC9spPSvc2RyrGEv qCwla6LbgCrxokXqQJWmGKB urbRimv3vwoTzLZMff13aLI GlVIomYZ67xTRgQVLkHBBSA YDvMUKaxzIjzGh9UUMmTVQ9 yG8tikNlicJhb2FlaPm2bBF kIGluIEExLlxwYXJccGFyIE DhVBhtKCPzW3GgeR3iPO2LU zhjFMPzDWEYZ6RmT62knIDs fQ== MICROSCOPIC e4hqeDIyQXFagGE2RbFnHHS DESCRIPTION (test code ol9gwe1FrjZOegQFuGRmmpX = 3371) WhtiJfma62hGJ9tX09QK1aX MKwXdF6IUPfegP6Bot7TNAd EJNedDDgS528h1byz7oseaR pkSV5jZotDCSfdvljOlK8JJ ocZCEmjjchWSw5QYmnFSCio JL9QZOijQPwC5EfRAPmWZ2f qll4HOR1CBaeOKSzBcC4YBV ylHWyRUJzlZmmUByaf755TG R5XvGzVYMacyAqwHwocN1wC eOvQBVPHSHaz4BsLABcDQGx cn0= Gross assessment was [facility] performed at ([facility], code = 2777) Department of Pathology, [address] [place] [address], Technical component [facility] was performed at ([facility], code = 2778) Department of Pathology, [address] [place] [address], Professional component [facility] was performed at ([facility], code = 2779) Department of Pathology, [address] [place] [address], [facility] [id number] 14:59:34Surgical Pathology Report Case: [id number] Authorizing Provider: Colby Penny, Collected: 09/07/2021 12:07 PM Ordering Location: [facility] Received: 09/07/2021 03:40 PM PERIOPERATIVE SERVICES Pathologist: Ciro Diamond MD Specimen: Mitral Valve, MITRAL VALVE MITRAL VALVE, EXCISION:VALVULAR TISSUE WITH DEGENERATIVE CHANGES AND FOCAL CALCIFICATION Signing Pathologist DirectPhone Line: [phone] signed by Ciro Diamond MD on 09/12/2021 at 2:59 [id number] fibrillation, mitral valve insufficiencyMitral valveA. Received fresh labeled with the patient's name, medical record number and "mitral valve" is a 3.7 x 3.4 x 0.1 cm triangular portion of yellow-white, slightly thickened valvular tissue. There is a small amount of attached, thickened chordae tendineae. The specimen is serially sectioned and no gross lesion are identified. Boot Turner sections are submitted in A1.SASHA Graf, URSULA (ASCP)cmPerformed.[facility], Department of Pathology, [address] [place] [address], [facility], Department of Pathology, [address] [place] [address], [facility], Department of Pathology, [address] [place] [address], SDNPTUK, [id number] 13:07:17 Test Item Value Reference Range Interpretation Comments CALCIUM IONIZED (BEAKER) (test 1.12 mmol/L 1.12-1.27 code = 698) PH, BLOOD (BEAKER) (test code = 7.49 1810) [id number] 13:05:22 Test Item Value Reference Range Interpretation Comments Potassium (test code = 4.1 meq/L 3.5-5.1 Speci men 2823-3) slightly hemolyzed EMERSON (test code = EMERSON) Principal Network Architect ID [facility] Lab Interpretation Normal (test code = 25771-1) [facility] Center[facility]assium20[facility] 13:05:22 Test Item Value Reference Range Interpretation Comments Potassium (test code = 4.1 meq/L 3.5-5.1 Speci men 2823-3) slightly hemolyzed EMERSON (test code = EMERSON) Principal Network [facility] Interpretation Normal (test code = 76828-2) [facility] Center[facility]-01-[facility] 13:05:22 Test Item Value Reference Range Interpretation Comments Potassium (test code = 4.1 meq/L 3.5-5.1 Speci men 2823-3) slightly hemolyzed EMERSON (test code = EMERSON) Principal Network Architect [facility] Lab Interpretation Normal (test code = 71331-6) [facility] CenterPOTASSIUM2022-01-25 13:05:22 Test Item Value Reference Range Interpretation Comments POTASSIUM (BEAKER) 4.1 meq/L 3.5-5.1 Specimen slightly (test code = 379) hemolyzed Principal Network Architect ID - [facility] [id number] 13:05:21 Test Item Value Reference Range Interpretation Comments MAGNESIUM (BEAKER) 2.2 mg/dL 1.6-2.6 Specimen slightly (test code = 627) hemolyzed Principal Network Architect ID - MARZENA [id number] 13:05:21 Test Item Value Reference Range Interpretation Comments PHOSPHORUS (BRAXTON) 2.6 mg/dL 2.3-4.7 Specimen slightly (test code = 604) hemolyzed Principal Network Architect ID - MARZENA MPOCT-GLUCOSE [id number] 11:29:26 Test Item Value Reference Range Interpretation Comments POC-GLUCOSE METER 126 mg/dL 70-110 H : Notified RN/MD: (BRAXTON) (test code = TESTED AT [place] [address] 1538) [facility], [address]: Principal Network Architect/Techni bart ID = [id number] for PH ABDOULAYE ROJAS POCT-GLUCOSE [id number] 08:03:15 Test Item Value Reference Range Interpretation Comments POC-GLUCOSE METER 98 mg/dL 70-110 : Notified RN/MD: TESTED ([place]) (test code = AT [facility] [address] [place] [address] 153) [facility], 770 30: Principal Network Architect/Techni bart ID = [id number] for ABDOULAYE KATZ Venous doppler arm, [id number] 06:52:54Ejection FractionSLE ECHO [facility]LAB [facility] Center[facility], [id number] 06:52:54Ejection FractionSLEH ECHO HEARTLAB [facility] CenterVenous doppler arm, [id number] 06:52:54Ejection FractionSLE ECHO HEARTLAB [facility] CenterRAD, CHEST, 1 VIEW, NON DEPT 2021-09-12 06:05:00while patient is intubated or has chest tubes.Reason for exam:->Status post CV SurgeryShould thisbe performed at the bedside?->Yes [facility] 1945 Sex: [...] contours. Addition al findings: None. Signed: Halley Osullivaneport Verified Date/Time: 09/12/2021 06:05:44 TIC FUNCTION [id number] 04:15:05 Test Item Value Reference Range Interpretation [...] (test code = 46 U/L 6-55 347) Principal Network Architect ID - MARZENA [id number] 04:15:04 Test Item Value Reference Range Interpretation Comments MAGNESIUM (BEAKER) (test code = 2.4 mg/dL 1.6-2.6 627) Principal Network Architect ID - MARZENA [id number] 04:15:04 Test Item Value Reference Range Interpretation Comments PHOSPHORUS (BEAKER) (test code = 3.3 mg/dL 2.3-4.7 604) Principal Network Architect ID - MARZENA MBASIC METABOLIC [id number] 04:15:03 Test Item Value Reference Range Interpretation [...] S NOT APPLICABLE FOR DIALYSIS PATIEN TS. Principal Network Architect ID - MARZENA [id number]/[id number] 04:11:05 Test Item Value Reference Interpretation Comments Range Protime (test code = 15.8 See_Comment H [Autom ated 5902-2) message] The system which generated this result transmitted reference range : 11.9 - 14.2 seconds. The reference range was not used to interpret this result as normal/abnormal . INR (test code = 1.28 See_Comment [Automated 8961-6) message] The system which generated this result transmitted reference range : <=5.90. The reference range was not used to interpret this result as normal/abnormal . PTT (test code = 47.6 See_Comment H [Automated 37431-2) message] The system which generated this result [...] valves. Lab Interpretation Abnormal (test code = 03205-6) [id number] 04:11:05 Test Item Value Reference Interpretation Comments [...] (test code = 47.6 See_Comment H [Automated 77673-6) message] The system which generated this result [...] valves. Lab Interpretation Abnormal (test code = 91021-5) [facility] CenterPT/[id number] 04:11:05 Test Item Value Reference Interpretation Comments [...] (test code = 47.6 See_Comment H [Automated 36438-3) message] The system which generated this result [...] valves. Lab Interpretation Abnormal (test code = 51820-4) [facility][id number] 04:11:05 Test Item Value Reference Range Interpretation [...] mechanical heart valves.CBC W/PLT COUNT & AUTO [id number] 04:06:36 Test Item Value Reference Range Interpretation [...] (BEAKER) (test code = 2801) Blood gas, [id number] 04:00:34 Test Item Value Reference Range Interpretation Comments pH, Arterial (test code 7.47 7.35-7.45 H = 2744-1) pCO2, Arterial (test 33 See_Comment L [Autom ated message] code = 2018-) The system [employer] generated this result transmit dante reference range : 35 - 45 mm Hg. The reference range was not used to interpret this result as normal/abnormal . pO2, Arterial (test 144 See_Comment H [Automa dante message] code = 2703-7) The system [employer] generated this result transmit dante reference range [...] 21 Lab Interpretation Abnormal (test code = 44543-1) [facility], [id number] 04:00:34 Test Item Value Reference Range Interpretation Comments pH, Arterial (test code 7.47 7.35-7.45 H = 2744-1) pCO2, Arterial (test 33 See_Comment L [Autom ated message] code = 2019-8) The system [employer] generated this result transmit dante reference range : 35 - 45 mm Hg. The reference range was not used to interpret this result as normal/abnormal . pO2, Arterial (test 144 See_Comment H [Automa dante message] code = 2703-7) The system [employer] generated this result transmit dante reference range [...] 21 Lab Interpretation Abnormal (test code = 60475-9) [facility] gas, [id number] 04:00:34 Test Item Value Reference Range Interpretation Comments pH, Arterial (test code 7.47 7.35-7.45 H = 2744-1) pCO2, Arterial (test 33 See_Comment L [Autom ated message] code = 2019-8) The system [employer] generated this result transmit dante reference range : 35 - 45 mm Hg. The reference range was not used to interpret this result as normal/abnormal . pO2, Arterial (test 144 See_Comment H [Automa dante message] code = 2703-7) The system [employer] generated this result transmit dante reference range [...] 21 Lab Interpretation Abnormal (test code = 58865-8) [facility] CenterBLOOD GAS, [id number] 04:00:34 Test Item Value Reference Range Interpretation [...] (test code = 1819) 21.0 Lactic Acid, [id number] 03:57:33 Test Item Value Reference Range Interpretation Comments Lactate, Art (test code = 0.8 mmol/L 0.5-2.2 2874) EMERSON (test code = EMERSON) Principal Network Architect ID - MARZENA Krishna Lab Interpretation (test Normal code = 67181-5) [facility] CenterL[facility] Acid, [id number] 03:57:33 Test Item Value Reference Range Interpretation Comments Lactate, Art (test code = 0.8 mmol/L 0.5-2.2 2874) EMERSON (test code = EMERSON) Principal Network Architect ID - MARZENA M Lab Interpretation (test Normal code = 53534-8) [facility] CenterL[facility] Acid, [id number] 03:57:33 Test Item Value Reference Range Interpretation Comments Lactate, Art (test code = 0.8 mmol/L 0.5-2.2 2874) EMERSON (test code = EMERSON) Principal Network Architect ID - MARZENA Krishna Lab Interpretation (test Normal code = 64856-6) [facility]setLACTIC ACID, [id number] 03:57:33 Test Item Value Reference Range Interpretation Comments LACTATE BLOOD ARTERIAL (2) 0.8 mmol/L 0.5-2.2 (BEAKER) (test code = 2874) Principal Network Architect ID - MARZENA MCALCIUM, [id number] 03:56:36 Test Item Value Reference Range Interpretation Comments CALCIUM IONIZED (BEAKER) (test 1.13 mmol/L 1.12-1.27 code = 698) PH, BLOOD (BEAKER) (test code = 7.48 1810) [id number] 21:01:53 Test Item Value Reference Range Interpretation Comments MAGNESIUM (BEAKER) (test code = 2.2 mg/dL 1.6-2.6 627) Principal Network Architect ID - OSMARBASIC METABOLIC [id number] 21:01:52 Test Item Value Reference Range Interpretation [...] S NOT APPLICABLE FOR DIALYSIS PATIEN TS. Principal Network Architect ID - DBHemoglobin and mpwmsiarqq2720-75-15 20:37:40 Test Item Value Reference Range Interpretation [...] = 4544-3) EMERSON (test code = EMERSON) Principal Network Architect ID - [id number] Lab Interpretation Abnormal (test code = 03364-9) [facility] CenterHemoglobin and [id number] 20:37:40 Test Item Value Reference Range Interpretation [...] = 4544-3) EMERSON (test code = EMERSON) Principal Network Architect ID - [id number] Lab Interpretation Abnormal (test code = 35447-6) [facility] CenterHemoglobin and [id number] 20:37:40 Test Item Value Reference Range Interpretation [...] = 4544-3) EMERSON (test code = EMERSON) Principal Network Architect ID - [id number] Lab Interpretation Abnormal (test code = 97623-6) [facility] CenterHEMOGLOBIN AND [id number] 20:37:40 Test Item Value Reference Range Interpretation Comments HEMOGLOBIN (BEAKER) (test code = 8.3 GM/DL 13.7-17.5 L 410) HEMATOCRIT (BEAKER) (test code = 26.6 % 40.1-51.0 L 411) Principal Network Architect ID - [id number]-GLUCOSE [id number] 20:36:55 Test Item Value Reference Range Interpretation Comments POC-GLUCOSE METER 110 mg/dL 70-110 : TESTED A T [facility] 6720 (BEAKER) (test code = [place], 1538) [address]: Principal Network Architect/Techni bart ID = [id number] for BEVERLEY WIGGINS POCT-GLUCOSE [id number] 16:19:31 Test Item Value Reference Range Interpretation Comments POC-GLUCOSE METER 127 mg/dL 70-110 H : TESTED A T [facility] 6720 (BEAKER) (test code = [place], 1538) [address]: Principal Network Architect/Techni bart ID = [id number] for PH ABDOULAYE ROJAS [id number] 12:45:58 Test Item Value Reference Range Interpretation Comments MAGNESIUM (BEAKER) (test code = 2.4 mg/dL 1.6-2.6 627) Principal Network Architect ID - [id number] 12:45:58 Test Item Value Reference Range Interpretation Comments PHOSPHORUS (BEAKER) (test code = 2.7 mg/dL 2.3-4.7 604) Principal Network Architect ID - RMBASIC METABOLIC [id number] 12:45:57 Test Item Value Reference Range Interpretation [...] S NOT APPLICABLE FOR DIALYSIS PATIEN TS. Principal Network Architect ID - RMCALCIUM, [id number] 12:25:40 Test Item Value Reference Range Interpretation Comments CALCIUM IONIZED (BEAKER) (test 1.09 mmol/L 1.12-1.27 L code = 698) PH, BLOOD (BEAKER) (test code = 7.46 1810) Oxygen saturation, [id number] 12:25:23 Test Item Value Reference Range Interpretation Comments O2 Saturation (Measured) (test code = 53.2 % 05515-5) [facility] CenterO[facility] saturation, [id number] 12:25:23 Test Item Value Reference Range Interpretation Comments O2 Saturation (Measured) (test code = 53.2 % 83994-1) [facility] CenterOxygen saturation, [id number] 12:25:23 Test Item Value Reference Range Interpretation Comments O2 Saturation (Measured) (test code = 53.2 % 03120-6) [facility] CenterOXYGEN SATURATION, [id number] 12:25:23 Test Item Value Reference Range Interpretation Comments O2 SATURATION (MEASURED) (BEAKER) 53.2 % (test code = 1455) POCT-GLUCOSE [id number] 11:12:10 Test Item Value Reference Range Interpretation Comments POC-GLUCOSE METER 87 mg/dL 70-110 : TESTED A T [facility] 6720 (BEAKER) (test code = [facility], 1538) [address]: Principal Network Architect/Techni bart ID = [id number] for HINT ONPABLITO POCT-GLUCOSE [id number] 08:30:46 Test Item Value Reference Range Interpretation Comments POC-GLUCOSE METER 120 mg/dL 70-110 H : TESTED A T [facility] 6720 (BEAKER) (test code = [facility], 1538) [address]: Principal Network Architect/Techni bart ID = [id number] for PH ABDOULAYE ROJAS OXYGEN SATURATION, [id number] 06:27:31 Test Item Value Reference Range Interpretation Comments O2 SATURATION (MEASURED) (BEAKER) 54.6 % (test code = 1455) HEPATIC FUNCTION [id number] 04:48:25 Test Item Value Reference Range Interpretation [...] Specimen moderately (test code = 347) hemolyzed Principal Network Architect ID Patrick SARAH [id number] 04:48:24 Test Item Value Reference Range Interpretation Comments PHOSPHORUS (BEAKER) 2.8 mg/dL 2.3-4.7 Specimen moderately (test code = 604) hemolyzed Principal Network Architect ID - KEARA WBASIC METABOLIC [id number] 04:48:24 Test Item Value Reference Range Interpretation [...] S NOT APPLICABLE FOR DIALYSIS PATIEN TS. Principal Network Architect ID Patrick SARAH [id number] 04:48:23 Test Item Value Reference Range Interpretation Comments MAGNESIUM (BEAKER) 2.1 mg/dL 1.6-2.6 Specimen moderately (test code = 627) hemolyzed Principal Network Architect ID Patrick SARAH WPT/[id number] 04:45:21 Test Item Value Reference Range Interpretation [...] mechanical heart valves.CBC W/PLT COUNT & AUTO [id number] 04:41:38 Test Item Value Reference Range Interpretation [...] (BEAKER) (test code = 2801) LACTIC ACID, [id number] 04:32:15 Test Item Value Reference Range Interpretation Comments LACTATE BLOOD 1.0 mmol/L 0.5-2.2 Specimen moder ately ARTERIAL (2) (BEAKER) hemoly zed (test code = 3384) Principal Network Architect ID - KEARA WCALCIUM, [id number] 04:12:20 Test Item Value Reference Range Interpretation Comments CALCIUM IONIZED (BEAKER) (test 1.08 mmol/L 1.12-1.27 L code = 698) PH, BLOOD (BEAKER) (test code = 7.51 1810) BLOOD GAS, [id number] 04:12:14 Test Item Value Reference Range Interpretation [...] (test code = 1819) 21.0 OXYGEN SATURATION, [id number] 04:12:09 Test Item Value Reference Range Interpretation Comments O2 SATURATION (MEASURED) (BEAKER) 57.4 % (test code = 1455) RAD, CHEST, 1 VIEW, NON [id number] 03:17:00while patient is intubated or has chest tubes.Reason for exam:->Status post CV SurgeryShould thisbe performed at the bedside?->Yes [facility] 1945 Sex: [...] by: Emir BARRIOS 09/11/2021 03:17 AMBASIC METABOLIC [id number] 22:33:36 Test Item Value Reference Range Interpretation [...] S NOT APPLICABLE FOR DIALYSIS PATIEN TS. Principal Network Architect ID - [id number] 22:33:35 Test Item Value Reference Range Interpretation Comments MAGNESIUM (BEAKER) 2.5 mg/dL 1.6-2.6 Specimen slightly (test code = 627) hemolyzed Principal Network Architect ID - DBPOCT-GLUCOSE [id number] 22:18:05 Test Item Value Reference Range Interpretation Comments POC-GLUCOSE METER 113 mg/dL 70-110 H : TESTED A T [facility] 6720 (BEAKER) (test code = [employer] [facility], 1538) [address]: Principal Network Architect/Techni bart ID = [id number] for ERASMO PORRAS HEMOGLOBIN AND [id number] 22:16:52 Test Item Value Reference Range Interpretation Comments HEMOGLOBIN (BEAKER) (test code = 8.3 GM/DL 13.7-17.5 L 410) HEMATOCRIT (BEAKER) (test code = 25.3 % 40.1-51.0 L 411) Principal Network Architect ID - 6000POCT-GLUCOSE [id number] 17:01:08 Test Item Value Reference Range Interpretation Comments POC-GLUCOSE METER 116 mg/dL 70-110 H : TESTED A T [facility] 6720 (BEAKER) (test code = [facility] [employer] [facility], 1538) [address]: Principal Network Architect/Techni bart ID = [id number] for SERAFIN ATWOOD 2D Echo W/Doppler(CW/PW/Color)2021-09-10 16:05:16Ejection FractionSLE ECHO HEARTLAB [facility] W/Doppler(CW/PW/Color)2021-09-10 16:05:16Ejection FractionSLE ECHO HEARTLAB [facility]2D Echo W/Doppler(CW/PW/Color) 2021-09-10 16:05:16[facility] CenterOXYGEN SATURATION, [id number] 15:40:36 Test Item Value Reference Range Interpretation Comments O2 SATURATION (MEASURED) (BEAKER) 79.1 % (test code = 1455) [id number] 13:24:14 Test Item Value Reference Range Interpretation Comments MAGNESIUM (BEAKER) (test code = 2.2 mg/dL 1.6-2.6 627) Principal Network Architect ID - PIMARIELA LBASIC METABOLIC [id number] 13:24:13 Test Item Value Reference Range Interpretation [...] S NOT APPLICABLE FOR DIALYSIS PATIEN TS. Principal Network Architect ID - PIAYA LCALCIUM, [id number] 13:05:15 Test Item Value Reference Range Interpretation Comments CALCIUM IONIZED (BEAKER) (test 1.06 mmol/L 1.12-1.27 L code = 698) PH, BLOOD (BEAKER) (test code = 7.52 1810) POCT-GLUCOSE [id number] 11:27:00 Test Item Value Reference Range Interpretation Comments POC-GLUCOSE METER 138 mg/dL 70-110 H : TESTED A T [facility] 6720 (BEAKER) ([facility] = [facility], 1538) [address]: Principal Network Architect/Techni bart ID = [id number] for SERAFIN ATWOOD POCT-GLUCOSE [id number] 07:54:29 Test Item Value Reference Range Interpretation Comments POC-GLUCOSE METER 133 mg/dL 70-110 H : TESTED A T [facility] 6720 (BEAKER) (test code = [facility], 1538) [address]: Principal Network Architect/Techni bart ID = [id number] for SERAFIN ATWOOD HEPATIC FUNCTION [id number] 05:39:39 Test Item Value Reference Range Interpretation [...] (test code = 44 U/L 6-55 347) Principal Network Architect ID - KAYLEEN [id number] 05:39:38 Test Item Value Reference Range Interpretation Comments PHOSPHORUS (BEAKER) (test code = 2.9 mg/dL 2.3-4.7 604) Principal Network Architect ID - KAYLEEN LBASIC METABOLIC [id number] 05:39:37 Test Item Value Reference Range Interpretation [...] S NOT APPLICABLE FOR DIALYSIS PATIEN TS. Principal Network Architect ID - KAYLEEN [id number] 05:39:37 Test Item Value Reference Range Interpretation Comments MAGNESIUM (BEAKER) (test code = 2.2 mg/dL 1.6-2.6 627) Principal Network Architect ID Patrick BEYER LLACTIC ACID, [id number] 05:27:27 Test Item Value Reference Range Interpretation Comments LACTATE BLOOD 0.9 mmol/L 0.5-2.2 Specimen sligh tly ARTERIAL (2) (BEAKER) hemoly zed (test code = 2874) Principal Network Architect ID - KAYLEEN LPT/[id number] 05:14:24 Test Item Value Reference Range Interpretation [...] for patients with mechanical heart valves.OXYGEN SATURATION, [id number] 05:07:37 Test Item Value Reference Range Interpretation Comments O2 SATURATION (MEASURED) (BEAKER) 77.5 % (test code = 1455) CBC W/PLT COUNT & AUTO [id number] 05:07:13 Test Item Value Reference Range Interpretation [...] = 2801) RAD, CHEST, 1 VIEW, NON [id number] 05:07:00while patient is intubated or has chest tubes.Reason for exam:->Status post CV SurgeryShould thisbe performed at the bedside?->Yes [facility] : 1945 Sex: MFINAL REPORT RAD, CHEST, 1 VIEW, NON DEPT INDICATION: Status post CV Surgery COMPARISON: Prior day's exam FINDINGS: Portable frontal view of the chest. IMPRESSION: Support Lines: Stable. Lungs and pleura: Unchanged bibasilar airspace and pleural opacities. No pneumothorax. Heart and mediastinum: Stable contours. Additional findings: None. Signed: Halley Osullivan [facility] Verified Date /Time: 09/10/2021 05:07:16 CALCIUM, [id number] 05:03:15 Test Item Value Reference Range Interpretation Comments CALCIUM IONIZED (BEAKER) (test 1.08 mmol/L 1.12-1.27 L code = 698) PH, BLOOD (BEAKER) (test code = 7.51 1810) BLOOD GAS, [id number] 05:00:52 Test Item Value Reference Range Interpretation [...] (BEAKER) (test code = 1819) 21.0 POCT-GLUCOSE [id number] 22:18:19 Test Item Value Reference Range Interpretation Comments POC-GLUCOSE METER 157 mg/dL 70-110 H : [facility] ([facility] (test code = [place], 1538) [address]: Principal Network Architect/Techni bart ID = [id number] for DAGO VISHAL CALCIUM, [id number] 20:12:13 Test Item Value Reference Range Interpretation Comments CALCIUM IONIZED (BEAKER) (test 1.11 mmol/L 1.12-1.27 L code = 698) PH, BLOOD (BEAKER) (test code = 7.47 1810) OXYGEN SATURATION, [id number] 20:12:01 Test Item Value Reference Range Interpretation Comments O2 SATURATION (MEASURED) (BEAKER) 78.0 % (test code = 1455) LACTIC ACID, [id number] 20:12:01 Test Item Value Reference Range Interpretation Comments LACTATE BLOOD 1.4 mmol/L 0.5-2.2 Specimen sligh tly ARTERIAL (2) (BEAKER) hemoly zed (test code = 2874) Principal Network Architect ID - [id number] 20:09:04 Test Item Value Reference Range Interpretation Comments PHOSPHORUS (BEAKER) 2.7 mg/dL 2.3-4.7 Specimen slightly (test code = 604) hemolyzed Principal Network Architect ID - DBBASIC METABOLIC [id number] 20:09:04 Test Item Value Reference Range Interpretation [...] S NOT APPLICABLE FOR DIALYSIS PATIEN TS. Principal Network Architect ID - [id number] 20:09:03 Test Item Value Reference Range Interpretation Comments MAGNESIUM (BEAKER) 2.1 mg/dL 1.6-2.6 Specimen slightly (test code = 627) hemolyzed Principal Network Architect ID - DBHEMOGLOBIN AND [id number] 19:51:19 Test Item Value Reference Range Interpretation Comments HEMOGLOBIN (BEAKER) (test code = 8.3 GM/DL 13.7-17.5 L 410) HEMATOCRIT (BEAKER) (test code = 25.6 % 40.1-51.0 L 411) Principal Network Architect ID - [id number] SATURATION, [id number] 09:51:00 Test Item Value Reference Range Interpretation Comments O2 SATURATION (MEASURED) (BEAKER) 67.0 % (test code = 1455) RAD, CHEST, 1 VIEW, NON [id number] 06:36:00while patient is intubated or has chest tubes.Reason for exam:->Status post CV SurgeryShould thisbe performed at the bedside?->Yes [facility] 1945 Sex: MFINAL REPORT RAD, CHEST, 1 VIEW, NON DEPT INDICATION: Status post CV Surgery COMPARISON: Prior day's exam FINDINGS: Portable frontal view of the chest. IMPRESSION: Support Lines: Right chest tube. [place] tip overlies the pulmonary outflow tract. Lungs and pleura: Retrocardiac opacity representing singly or in combination airspace disease, atelectasis and/or effusion. Bibasilarinterstitial thickening is unchanged. No significant pneumothorax. Heart and mediastinum: Stable contours. Stable surgical changes. Additional findings: None. Signed: Gaby Cordero Verified Date/Time: 09/09/2021 06:36:02 06 :36 AMOXYGEN SATURATION, [id number] 05:12:23 Test Item Value Reference Range Interpretation Comments O2 SATURATION (MEASURED) (BEAKER) 98.5 % (test code = 1455) [id number] 03:20:36 Test Item Value Reference Range Interpretation Comments PHOSPHORUS (BEAKER) (test code = 2.6 mg/dL 2.3-4.7 604) Principal Network Architect ID - MARZENA [id number] 03:20:35 Test Item Value Reference Range Interpretation Comments MAGNESIUM (BEAKER) (test code = 2.1 mg/dL 1.6-2.6 627) Principal Network Architect ID - MARZENA MCOMPREHENSIVE METABOLIC [id number] 03:20:34 Test Item Value Reference Range Interpretation [...] S NOT APPLICABLE FOR DIALYSIS PATIEN TS. Principal Network Architect ID - MARZENA MPOCT-GLUCOSE [id number] 03:04:55 Test Item Value Reference Range Interpretation Comments POC-GLUCOSE METER 143 mg/dL 70-110 H : TESTED A T [facility] 6720 (BEAKER) (test code = [facility], 1538) [address]: Principal Network Architect/Techni bart ID = [id number] for Cathleen Acuña BLOOD GAS, [id number] 02:57:44 Test Item Value Reference Range Interpretation Comments PH ARTERIAL (BEAKER) (test code = 7.46 7.35-7.45 H 383) PCO2 ARTERIAL (BEAKER) (test code 32 mm Hg 35-45 L = 384) PO2 ARTERIAL (BEAKER) (test code 149 mm Hg 80-90 H = 385) O2 SATURATION ARTERIAL (BEAKER) 99.0 % 96.0-97.0 H (test code = 386) HCO3 ARTERIAL (BEAKER) (test code 22 mmol/L = 388) BASE EXCESS ARTERIAL (BEAKER) -0.9 mmol/L -2.0-3.0 (test code = 387) PATIENT TEMPERATURE (BEAKER) 37.0 (test code = 1818) FIO2 (BEAKER) (test code = 1819) 28.0 CBC (Hemogram only)2021-09-09 02:57:29 Test Item Value Reference Range Interpretation Comments WBC (test code = 6690-2) 14.5 See_Comment H [A utomated message] The system [employer] generated this result transmitted ref erence range: 3.5 - 10 .5 K/L. The refe rence range was not u sed to interpret this result as normal/abnor mal. RBC (test code = 789-8) 3.05 See_Comment L [Au tomated message] The system [employer] generated this result transmitted ref erence range: 4.63 - 6 .08 M/L. The refe rence range was not u sed to interpret this result as normal/abnor mal. MCHC (test code = 786-4) 31.7 See_Comment L [A utomated message] The system [employer] generated this result transmitted ref erence range: [...] See_Comment [Aut omated message] 777-3) The system [employer] generated this result transmitted ref erence range: 150 - 45 0 K/CU MM. The referen ce range was not u sed to interpret this result as normal/abnor mal. MPV (test code = 10.7 fL 9.4-12.4 77639-4) nRBC (test code = 413) 0 See_Comment [Aut omated message] The system [employer] generated this result transmitted ref erence range: 0 - 0 /1 00 WBC. The refere nce range was not u sed to interpret this result as normal/abnor mal. Lab Interpretation (test Abnormal code = 15460-7) [facility] (Hemogram only)2021-09-09 02:57:29 Test Item Value Reference Range Interpretation Comments WBC (test code = 6690-2) 14.5 See_Comment H [A utomated message] The system [employer] generated this result transmitted ref erence range: 3.5 - 10 .5 K/L. The refe rence range was not u sed to interpret this result as normal/abnor mal. RBC (test code = 789-8) 3.05 See_Comment L [Au tomated message] The system [employer] generated this result transmitted ref erence range: 4.63 - 6 .08 M/L. The refe rence range was not u sed to interpret this result as normal/abnor mal. MCHC (test code = 786-4) 31.7 See_Comment L [A utomated message] The system [employer] generated this result transmitted ref erence range: [...] See_Comment [Aut omated message] 777-3) The system [employer] generated this result transmitted ref erence range: 150 - 45 0 K/CU MM. The referen ce range was not u sed to interpret this result as normal/abnor mal. MPV (test code = 10.7 fL 9.4-12.4 98478-0) nRBC (test code = 413) 0 See_Comment [Aut omated message] The system [employer] generated this result transmitted ref erence range: 0 - 0 /1 00 WBC. The refere nce range was not u sed to interpret this result as normal/abnor mal. Lab Interpretation (test Abnormal code = 63209-3) [facility] (Hemogram only)2021-09-09 02:57:29 Test Item Value Reference Range Interpretation Comments WBC (test code = 6690-2) 14.5 See_Comment H [A utomated message] The system [employer] generated this result transmitted ref erence range: 3.5 - 10 .5 K/L. The refe rence range was not u sed to interpret this result as normal/abnor mal. RBC (test code = 789-8) 3.05 See_Comment L [Au tomated message] The system [employer] generated this result transmitted ref erence range: 4.63 - 6 .08 M/L. The refe rence range was not u sed to interpret this result as normal/abnor mal. MCHC (test code = 786-4) 31.7 See_Comment L [A utomated message] The system [employer] generated this result transmitted ref erence range: [...] See_Comment [Aut omated message] 777-3) The system [employer] generated this result transmitted ref erence range: 150 - 45 0 K/CU MM. The referen ce range was not u sed to interpret this result as normal/abnor mal. MPV (test code = 10.7 fL 9.4-12.4 96109-4) nRBC (test code = 413) 0 See_Comment [Aut omated message] The system [employer] generated this result transmitted ref erence range: 0 - 0 /1 00 WBC. The refere nce range was not u sed to interpret this result as normal/abnor mal. Lab Interpretation (test Abnormal code = 61021-7) [facility] (HEMOGRAM ONLY)2021-09-09 02:57:29 Test Item Value Reference [...] 0-0 (BEAKER) (test code = 413) CALCIUM, [id number] 02:57:28 Test Item Value Reference Range Interpretation Comments CALCIUM IONIZED (BEAKER) (test 1.12 mmol/L 1.12-1.27 code = 698) PH, BLOOD (BEAKER) (test code = 7.46 1810) POCT-GLUCOSE [id number] 21:16:02 Test Item Value Reference Range Interpretation Comments POC-GLUCOSE METER 169 mg/dL 70-110 H : TESTED A T [facility] 6720 (BEAKER) (test code = [place], 1538) [address]: Principal Network Architect/Techni bart ID = [id number] for Am rodrigo, Walker POCT-GLUCOSE [id number] 21:12:37 Test Item Value Reference Range Interpretation Comments POC-GLUCOSE METER 140 mg/dL 70-110 H : TESTED Rut Goncalves [facility] 6720 (BEAKER) (test code [facility], = 1538) [address]: Principal Network Architect/Techni bart ID = [id number] for SEAN REED (contract), NICHELLE BUCIO 2D Echo W/Doppler(CW/PW/Color)2021-09-08 15:37:08Ejection FractionSLEH ECHO [facility]Do[facility](CW/PW/Color)2021-09-08 15:37:08Ejection FractionSLEH ECHO HEARTLAB [facility] Echo W/Doppler(CW/PW/Color) 2021-09-08 15:37:08Ejection FractionSLEH ECHO HEARTLAB [facility]2022-01-21 15:32:47 Test Item Value Reference Range Interpretation Comments POTASSIUM (BEAKER) 4.3 meq/L 3.5-5.1 Specimen slightly (test code = 379) hemolyzed Principal Network Architect ID - KAYLEEN [id number] 15:32:46 Test Item Value Reference Range Interpretation Comments MAGNESIUM (BEAKER) 2.0 mg/dL 1.6-2.6 Specimen slightly (test code = 627) hemolyzed Principal Network Architect ID - KAYLEEN LCBC W/PLT COUNT & AUTO [id number] 15:19:56 Test Item Value Reference Range Interpretation [...] PERCENT (BEAKER) (test code = 2801) CALCIUM, [id number] 15:12:46 Test Item Value Reference Range Interpretation Comments CALCIUM IONIZED (BEAKER) (test 1.11 mmol/L 1.12-1.27 L code = 698) PH, BLOOD (BEAKER) (test code = 7.48 1810) POCT-GLUCOSE [id number] 14:49:24 Test Item Value Reference Range Interpretation Comments POC-GLUCOSE METER 102 mg/dL 70-110 : TESTED A T [facility] 6720 (BEAKER) (test code [facility], = 1538) 42149: Principal Network Architect/Techni bart ID = [id number] for SEANAMA CHANDLERA (contract), NICHELLE OSLAVA POCT-GLUCOSE [id number] 10:32:59 Test Item Value Reference Range Interpretation Comments POC-GLUCOSE METER 104 mg/dL 70-110 : TESTED A T [facility] 6720 (BEAKER) (test code [facility], = 1538) 86853: Principal Network Architect/Techni bart ID = [id number] for SEAN NOVA (contract), NICHELLE OSLAVA HEMOGLOBIN AND [id number] 10:32:38 Test Item Value Reference Range Interpretation Comments HEMOGLOBIN (BEAKER) (test code = 7.7 GM/DL 13.7-17.5 L 410) HEMATOCRIT (BEAKER) (test code = 25.3 % 40.1-51.0 L 411) Principal Network Architect ID - [id number]-GLUCOSE [id number] 09:26:31 Test Item Value Reference Range Interpretation Comments POC-GLUCOSE METER 96 mg/dL 70-110 : TESTED A T [facility] 6720 (BEAKER) (test code = [facility], 1538) 70091: Principal Network Architect/Techni bart ID = [id number] for SEANAMA CHANDLERA (contract), NICHELLE OSLAVA LACTIC ACID, [id number] 09:18:52 Test Item Value Reference Range Interpretation Comments LACTATE BLOOD ARTERIAL (2) 1.7 mmol/L 0.5-2.2 (BEAKER) (test code = 2874) Principal Network Architect ID - DBOXYGEN SATURATION, [id number] 09:17:35 Test Item Value Reference Range Interpretation Comments O2 SATURATION (MEASURED) (BEAKER) 60.3 % (test code = 1455) POCT-GLUCOSE [id number] 09:09:11 Test Item Value Reference Range Interpretation Comments POC-GLUCOSE METER 101 mg/dL 70-110 : TESTED A T [facility] 6720 (BEAKER) (test code [facility], = 1538) 66429: Principal Network Architect/Techni bart ID = [id number] for SEAN NOVA (contract), NICHELLE OSLAVA BLOOD GAS, [id number] 09:08:49 Test Item Value Reference Range Interpretation [...] = No growth in 5 days 6463-4) [facility] [place] ([facility] Venipuncture)2021-09-08 08:00:53 Test Item Value Reference Range Interpretation Comments Result (test code = No growth in 5 days 6463-4) [facility] Culture - Routine (Left Venipuncture)2021-09-08 08:00:53 Test Item Value Reference Range Interpretation Comments Result (test code = No growth in 5 days 6463-4) [facility] [id number] 08:00:53 Test Item Value Reference Range Interpretation Comments CULTURE (BEAKER) (test No growth in 5 days code = 1095) BLOOD [id number] 08:00:52 Test Item Value Reference Range Interpretation Comments CULTURE (BEAKER) (test No growth in 5 days code = 1095) [id number] 07:57:26 Test Item Value Reference Range Interpretation Comments Scan Result (test code = See scanned report [id number]) EMERSON (test code = EMERSON) See scanned report [place] [id number] 07:57:26 Test Item Value Reference Range Interpretation Comments Scan Result (test code = See scanned report [id number]) EMERSON (test code = EMERSON) See scanned report [facility] 07:57:26 Test Item Value Reference Range Interpretation Comments Scan Result (test code = See scanned report [id number]) EMERSON (test code = EMERSON) See scanned report [facility] [id number] 07:57:26 Test Item Value Reference Range Interpretation Comments SCAN RESULT (test code = See scanned report [id number]) See scanned reportLACTIC ACID, [id number] 06:32:27 Test Item Value Reference Range Interpretation Comments LACTATE BLOOD ARTERIAL (2) 3.0 mmol/L 0.5-2.2 H (BEAKER) (test code = 2874) Principal Network Architect ID - PIAYA LPOC ACTIVATED CLOTTING [id number] 06:31:19 Test Item Value Reference Range Interpretation Comments Activated Clotting Time 142 sec : 74 -137 seconds, (test code = 3184-9) Baselin e: TESTED AT [address], [address]: Principal Network Architect/Techni bart ID = [id number] for Sa enz, Angela [facility] ACTIVATED CLOTTING [id number] 06:31:19 Test Item Value Reference Range Interpretation Comments Activated Clotting Time 142 sec : 74 -137 seconds, (test code = 3184-9) Baselin e: TESTED AT [address], [address]: Principal Network Architect/Techni bart ID = [id number] for Sa enz, Angela [facility] ACTIVATED CLOTTING [id number] 06:31:19 Test Item Value Reference Range Interpretation Comments Activated Clotting Time 142 sec : 74 -137 seconds, (test code = 441) Baseline: TESTED AT [address], [address]: Principal Network Architect/Techni bart ID = [id number] for Sa enz, Angela [facility] [id number] 06:31:19 Test Item Value Reference Range Interpretation Comments ACTIVATED CLOTTING TIME 142 sec : 74 -137 seconds, (BEAKER) (test code = Baseli ne: TESTED AT 441) [address], [address]: Principal Network Architect/Techni bart ID = [id number] for Sa enz, Angela [id number] 06:31:17 Test Item Value Reference Range Interpretation Comments ACTIVATED CLOTTING TIME 785 sec : 74 -137 seconds, (BEAKER) (test code = Baseli ne: TESTED AT 441) [address], [address]: Principal Network Architect/Techni bart ID = [id number] for Sa enz, Angela [id number] 06:31:17 Test Item Value Reference Range Interpretation Comments ACTIVATED CLOTTING TIME 964 sec : 74 -137 seconds, (BEAKER) (test code = Josei ne: TESTED AT 441) [address], [address]: Principal Network Architect/Techni bart ID = [id number] for Sa enz, Angela [id number] 06:31:16 Test Item Value Reference Range Interpretation Comments ACTIVATED CLOTTING TIME > sec : 74 -137 seconds, (BEAKER) (test code = Josei ne: TESTED AT 441) [address], [address]: Principal Network Architect/Techni bart ID = [id number] for Sa enz, Angela [id number] 06:31:15 Test Item Value Reference Range Interpretation Comments ACTIVATED CLOTTING TIME > sec : 74 -137 seconds, (BEAKER) (test code = Baseli ne: TESTED AT 441) [address], [address]70 [address]: Principal Network Architect/Techni bart ID = [id number] for Sa enz, Angela [id number] 06:31:14 Test Item Value Reference Range Interpretation Comments ACTIVATED CLOTTING TIME 708 sec : 74 -137 seconds, (BEAKER) (test code = Josei ne: TESTED AT 441) [address], [address]: Principal Network Architect/Techni bart ID = [id number] for Sa enz, Angela [id number] 06:31:13 Test Item Value Reference Range Interpretation Comments ACTIVATED CLOTTING TIME 154 sec : 74 -137 seconds, (BEAKER) (test code = Josei ne: TESTED AT 441) [address], [address]70 [address]: Principal Network Architect/Techni bart ID = [id number] for Sa enz, Angela POCT-GLUCOSE [id number] 06:26:19 Test Item Value Reference Range Interpretation Comments POC-GLUCOSE METER 117 mg/dL 70-110 H : TESTED A T [place] [address] (BEAKER) (test code = [facility], 1538) [address]: Principal Network Architect/Techni bart ID = [id number] for La nate Jane HGB/HCT (H&H)-Stat [id number] 06:21:12 Test Item Value Reference Range Interpretation Comments Hemoglobin (test code = 8.3 See_Comment L [Au tomated message] 786-4) The system [employer] generated this result transmitted ref erence range: 13.0 - 1 6.8 GM/DL. The refe rence range was not u sed to interpret this result as normal/abnor mal. Hematocrit (test code = 24.0 % 40.0-50.0 L 4544-3) Lab Interpretation (test Abnormal code = 41708-1) [facility]Stat [id number] 06:21:12 Test Item Value Reference Range Interpretation Comments Glucose (test code = 2345-7) 123 mg/dL 70-110 H Lab Interpretation (test code = Abnormal 13388-5) [facility] CenterH[facility] (H&H)-Stat [id number] 06:21:12 Test Item Value Reference Range Interpretation Comments Hemoglobin (test code = 8.3 See_Comment L [Au tomated message] 786-4) The system [employer] generated this result transmitted ref erence range: 13.0 - 1 6.8 GM/DL. The refe rence range was not u sed to interpret this result as normal/abnor mal. Hematocrit (test code = 24.0 % 40.0-50.0 L 4544-3) Lab Interpretation (test Abnormal code = 75665-7) [facility] Center[facility] [id number] 06:21:12 Test Item Value Reference Range Interpretation Comments Glucose (test code = 2345-7) 123 mg/dL 70-110 H Lab Interpretation (test code = Abnormal 13039-2) [facility] CenterH[facility] (H&H)-Stat [id number] 06:21:12 Test Item Value Reference Range Interpretation Comments Hemoglobin (test code = 8.3 See_Comment L [Au tomated message] 786-4) The system [employer] generated this result transmitted ref erence range: 13.0 - 1 6.8 GM/DL. The refe rence range was not u sed to interpret this result as normal/abnor mal. Hematocrit (test code = 24.0 % 40.0-50.0 L 4544-3) Lab Interpretation (test Abnormal code = 13219-3) [facility] Center[facility]Stat [id number] 06:21:12 Test Item Value Reference Range Interpretation Comments Glucose (test code = 2345-7) 123 mg/dL 70-110 H Lab Interpretation (test code = Abnormal 82115-3) [facility] CenterGLU[facility]SE-STAT [id number] 06:21:12 Test Item Value Reference Range Interpretation Comments GLUCOSE RANDOM (BEAKER) (test code 123 mg/dL 70-110 H = 652) HGB/HCT (H&H) - STAT [id number] 06:21:12 Test Item Value Reference Range Interpretation Comments HEMOGLOBIN (BEAKER) (test code = 8.3 GM/DL 13.0-16.8 L 410) HEMATOCRIT (BEAKER) (test code = 24.0 % 40.0-50.0 L 411) BLOOD GAS, [id number] 06:21:11 Test Item Value Reference Range Interpretation [...] (BEAKER) (test code = 1819) 40.0 Potassium-Stat [id number] 06:19:05 Test Item Value Reference Range Interpretation Comments Potassium (test code = 2823-3) 4.1 meq/L 3.6-5.5 Lab Interpretation (test code = Normal 94793-5) [facility] CenterPotassium[facility]Stat [id number] 06:19:05 Test Item Value Reference Range Interpretation Comments Potassium (test code = 2823-3) 4.1 meq/L 3.6-5.5 Lab Interpretation (test code = Normal 99404-0) [facility] Center[facility]Stat [id number] 06:19:05 Test Item Value Reference Range Interpretation Comments Potassium (test code = 2823-3) 4.1 meq/L 3.6-5.5 Lab Interpretation (test code = Normal 91003-9) [facility] CenterPOT[facility]SIUM-STAT [id number] 06:19:05 Test Item Value Reference Range Interpretation Comments POTASSIUM (BEAKER) (test code = 4.1 meq/L 3.6-5.5 379) Sodium Na-Stat [id number] 06:19:04 Test Item Value Reference Range Interpretation Comments Sodium (test code = 2951-2) 140 meq/L 136-145 Lab Interpretation (test code = Normal 79452-2) [facility] [id number] 06:19:04 Test Item Value Reference Range Interpretation Comments Sodium (test code = 2951-2) 140 meq/L 136-145 Lab Interpretation (test code = Normal 12782-5) [facility]Stat [id number] 06:19:04 Test Item Value Reference Range Interpretation Comments Sodium (test code = 2951-2) 140 meq/L 136-145 Lab Interpretation (test code = Normal 38054-5) [facility] CenterODIUM NA-STAT [id number] 06:19:04 Test Item Value Reference Range Interpretation Comments SODIUM (BEAKER) (test code = 381) 140 meq/L 136-145 POCT-GLUCOSE [id number] 06:03:00 Test Item Value Reference Range Interpretation Comments POC-GLUCOSE METER 117 mg/dL 70-110 H : TESTED A T [facility] 6720 (BEAKER) (test code = [facility], 1538) 868[address]: Principal Network Architect/Techni bart ID = [id number] for Jane Payne POCT-GLUCOSE [id number] 04:27:30 Test Item Value Reference Range Interpretation Comments POC-GLUCOSE METER 131 mg/dL 70-110 H : TESTED A T [facility] 6720 (BEAKER) (test code = [place], 1538) 66726: Principal Network Architect/Techni bart ID = [id number] for Jane Payne HGB/HCT (H&H) - STAT [id number] 04:22:31 Test Item Value Reference Range Interpretation Comments HEMOGLOBIN (BEAKER) (test code = 8.5 GM/DL 13.0-16.8 L 410) HEMATOCRIT (BEAKER) (test code = 25.0 % 40.0-50.0 L 411) BLOOD GAS, [id number] 04:22:30 Test Item Value Reference Range Interpretation [...] (BEAKER) (test code = 1819) 40.0 GLUCOSE-STAT [id number] 04:22:30 Test Item Value Reference Range Interpretation Comments GLUCOSE RANDOM (BEAKER) (test code 145 mg/dL 70-110 H = 652) OXYGEN SATURATION, [id number] 04:22:06 Test Item Value Reference Range Interpretation Comments O2 SATURATION (MEASURED) (BEAKER) 70.0 % (test code = 1455) SODIUM NA-STAT [id number] 04:21:07 Test Item Value Reference Range Interpretation Comments SODIUM (BEAKER) (test code = 381) 138 meq/L 136-145 POTASSIUM-STAT [id number] 04:21:07 Test Item Value Reference Range Interpretation Comments POTASSIUM (BEAKER) (test code = 4.0 meq/L 3.6-5.5 379) RAD, CHEST, 1 VIEW, NON [id number] 04:06:00while patient is intubated or has chest tubes.Reason for exam:->Status post CV SurgeryShould thisbe performed at the bedside?->Yes [facility] : 1945 Sex: MFINAL REPORT RAD, CHEST, 1 VIEW, NON DEPT INDICATION: Status post CV Surgery COMPARISON: Prior day's exam FINDINGS: Portable frontal view of the chest. IMPRESSION: Support Lines: Slight repositioning of the right IJ [place] catheter tip overlying the main pulmonary artery. Lungs and pleura: Unchanged airspace and pleural opacities. No pneumothorax.Heart and mediastinum: Stable co ntours. Stable surgical changes.Additional findings: None. Signed: Rm Nassar Verified Date/Time: 09/08/2021 04:06:10 LACTIC ACID, ARTERIAL 2021-09-08 03:28:09 Test Item Value Reference Range Interpretation Comments LACTATE BLOOD ARTERIAL (2) 4.4 mmol/L 0.5-2.2 HH ([facility]) (test code = 2874) Principal Network Architect ID - DBPOCT-GLUCOSE [id number] 03:20:20 Test Item Value Reference Range Interpretation Comments POC-GLUCOSE METER 127 mg/dL 70-110 H : TESTED A T [facility] 6720 ([facility]) (test code = [place], 1538) 47[address]: Principal Network Architect/Techni bart ID = [id number] for La nate, Jane CBC W/PLT COUNT & AUTO [id number] 03:14:20 Test Item Value Reference Range Interpretation [...] 0-1 PERCENT (BEAKER) (test code = 2801) [id number] 03:02:27 Test Item Value Reference Range Interpretation Comments PHOSPHORUS (BEAKER) (test code = 2.5 mg/dL 2.3-4.7 604) Principal Network Architect ID - [id number] 03:02:26 Test Item Value Reference Range Interpretation Comments MAGNESIUM (BEAKER) (test code = 2.3 mg/dL 1.6-2.6 627) Principal Network Architect ID - DBCOMPREHENSIVE METABOLIC [id number] 03:02:25 Test Item Value Reference Range Interpretation [...] S NOT APPLICABLE FOR DIALYSIS PATIEN TS. Principal Network Architect ID - DBCALCIUM, [id number] 02:42:47 Test Item Value Reference Range Interpretation Comments CALCIUM IONIZED (BEAKER) (test 1.09 mmol/L 1.12-1.27 L code = 698) PH, BLOOD (BEAKER) (test code = 7.51 1810) GLUCOSE-STAT [id number] 02:42:45 Test Item Value Reference Range Interpretation Comments GLUCOSE RANDOM (BEAKER) (test code 162 mg/dL 70-110 H = 652) HGB/HCT (H&H) - STAT [id number] 02:42:45 Test Item Value Reference Range Interpretation Comments HEMOGLOBIN (BEAKER) (test code = 8.3 GM/DL 13.0-16.8 L 410) HEMATOCRIT (BEAKER) (test code = 24.0 % 40.0-50.0 L 411) BLOOD GAS, [id number] 02:42:44 Test Item Value Reference Range Interpretation [...] (test code = 1819) 40.0 SODIUM NA-STAT [id number] 02:39:19 Test Item Value Reference Range Interpretation Comments SODIUM (BEAKER) (test code = 381) 138 meq/L 136-145 POTASSIUM-STAT [id number] 02:39:19 Test Item Value Reference Range Interpretation Comments POTASSIUM (BEAKER) (test code = 3.8 meq/L 3.6-5.5 379) POCT-GLUCOSE [id number] 02:22:45 Test Item Value Reference Range Interpretation Comments POC-GLUCOSE METER 148 mg/dL 70-110 H : TESTED A T [facility] 6720 (BEAKER) (test code = [facility] S[facility]anth [facility], 1538) 25383: Principal Network Architect/Techni bart ID = [id number] for Jane Payne OXYGEN SATURATION, [id number] 01:24:13 Test Item Value Reference Range Interpretation Comments O2 SATURATION (MEASURED) (BEAKER) 71.6 % (test code = 1455) POCT-GLUCOSE [id number] 01:14:53 Test Item Value Reference Range Interpretation Comments POC-GLUCOSE METER 159 mg/dL 70-110 H : TESTED A T [facility] 6720 (BEAKER) (test code = [facility] Srikanth [facility], 1538) 91117: Principal Network Architect/Techni bart ID = [id number] for Jane Payne POCT-GLUCOSE [id number] 00:12:10 Test Item Value Reference Range Interpretation Comments POC-GLUCOSE METER 170 mg/dL 70-110 H : TESTED A T [facility] 6720 (BEAKER) (test code = [facility] Srik[facility], 1538) 35848: Principal Network Architect/Techni bart ID = [id number] for Jane Payne HGB/HCT (H&H) - STAT [id number] 00:01:07 Test Item Value Reference Range Interpretation Comments HEMOGLOBIN (BEAKER) (test code = 8.6 GM/DL 13.0-16.8 L 410) HEMATOCRIT (BEAKER) (test code = 25.0 % 40.0-50.0 L 411) BLOOD GAS, [id number] 00:01:06 Test Item Value Reference Range Interpretation [...] (BEAKER) (test code = 1819) 40.0 GLUCOSE-STAT [id number] 00:01:06 Test Item Value Reference Range Interpretation Comments GLUCOSE RANDOM (BEAKER) (test code 185 mg/dL 70-110 H = 652) POTASSIUM-STAT [id number] 00:00:02 Test Item Value Reference Range Interpretation Comments POTASSIUM (BEAKER) (test code = 4.0 meq/L 3.6-5.5 379) SODIUM NA-STAT [id number] 00:00:01 Test Item Value Reference Range Interpretation Comments SODIUM (BEAKER) (test code = 381) 138 meq/L 136-145 POCT-GLUCOSE [id number] 23:16:14 Test Item Value Reference Range Interpretation Comments POC-GLUCOSE METER 169 mg/dL 70-110 H : TESTED A T [facility] 6720 (BESekal AS) (test code = [facility], 1538) 40331: Principal Network Architect/Techni bart ID = [id number] for La nate, Jane POCT-GLUCOSE [id number] 22:48:00 Test Item Value Reference Range Interpretation Comments POC-GLUCOSE METER 186 mg/dL 70-110 H : TESTED A T [facility] 6720 [facility] (test code = [facility], 1538) 75145: Principal Network Architect/Techni bart ID = [id number] for La nate, Jane LACTIC ACID, [id number] 22:32:03 Test Item Value Reference Range Interpretation Comments LACTATE BLOOD ARTERIAL (2) 7.7 mmol/L 0.5-2.2 HH (BEAKER) (test code = 2874) Principal Network Architect ID - DBSpecimen slightly [id number] 22:20:51 Test Item Value Reference Range Interpretation Comments PARTIAL THROMBOPLASTIN TIME 50.9 seconds 22.5-36.0 H (BEAKER) (test code = 760) POCT-GLUCOSE [id number] 22:10:53 Test Item Value Reference Range Interpretation Comments POC-GLUCOSE METER 203 mg/dL 70-110 H : TESTED A T [facility] 6720 (Douguo) (test code = [facility], 1538) 96986: Principal Network Architect/Techni bart ID = [id number] for La nate, Jane HGB/HCT (H&H) - STAT [id number] 22:10:05 Test Item Value Reference Range Interpretation Comments HEMOGLOBIN (BEAKER) (test code = 8.4 GM/DL 13.0-16.8 L 410) HEMATOCRIT (BEAKER) (test code = 25.0 % 40.0-50.0 L 411) GLUCOSE-STAT [id number] 22:10:04 Test Item Value Reference Range Interpretation Comments GLUCOSE RANDOM (BEAKER) (test code 203 mg/dL 70-110 H = 652) BLOOD GAS, [id number] 22:10:03 Test Item Value Reference Range Interpretation [...] (test code = 1819) 40.0 SODIUM NA-STAT [id number] 22:09:47 Test Item Value Reference Range Interpretation Comments SODIUM (BEAKER) (test code = 381) 140 meq/L 136-145 POTASSIUM-STAT [id number] 22:09:47 Test Item Value Reference Range Interpretation Comments POTASSIUM (BEAKER) (test code = 3.8 meq/L 3.6-5.5 379) BASIC METABOLIC [id number] 21:03:11 Test Item Value Reference Range Interpretation [...] S NOT APPLICABLE FOR DIALYSIS PATIEN TS. Principal Network Architect ID - MARZENA MHGB/HCT (H&H) - STAT [id number] 20:56:34 Test Item Value Reference Range Interpretation Comments HEMOGLOBIN (BEAKER) (test code = 9.2 GM/DL 13.0-16.8 L 410) HEMATOCRIT (BEAKER) (test code = 27.0 % 40.0-50.0 L 411) GLUCOSE-STAT [id number] 20:56:33 Test Item Value Reference Range Interpretation Comments GLUCOSE RANDOM (BEAKER) (test code 216 mg/dL 70-110 H = 652) BLOOD GAS, [id number] 20:56:32 Test Item Value Reference Range Interpretation [...] (BEAKER) (test code = 1819) 40.0 POTASSIUM-STAT [id number] 20:55:37 Test Item Value Reference Range Interpretation Comments POTASSIUM (BEAKER) (test code = 3.9 meq/L 3.6-5.5 379) SODIUM NA-STAT [id number] 20:55:36 Test Item Value Reference Range Interpretation Comments SODIUM (BEAKER) (test code = 381) 138 meq/L 136-145 LACTIC ACID, [id number] 19:32:31 Test Item Value Reference Range Interpretation Comments LACTATE BLOOD ARTERIAL (2) 9.1 mmol/L 0.5-2.2 HH (BEAKER) (test code = 2874) Principal Network Architect ID - MARZENA MCBC (HEMOGRAM ONLY)2021-09-07 19:15:57 [...] (BEAKER) (test code = 413) BLOOD GAS, [id number] 19:14:26 Test Item Value Reference Range Interpretation [...] (test code = 1819) 60.0 OXYGEN SATURATION, [id number] 19:14:15 Test Item Value Reference Range Interpretation Comments O2 SATURATION (MEASURED) (BEAKER) 72.3 % (test code = 1455) POCT-GLUCOSE [id number] 18:29:54 Test Item Value Reference Range Interpretation Comments POC-GLUCOSE METER 170 mg/dL 70-110 H : TESTED Rut T [facility] 6720 (BEAKER) (test code = [place], 1538) [address]: Principal Network Architect/Techni bart ID = [id number] for CO ONCE, SHELLEY CT, CTA, [id number] 17:57:00Unlisted Reason for Exam - Click Yes and Enter Reason Below->YesUnlisted Reason for Exam->Pre op evaluation of aorta, assessment prior to cardiac surgery. need to see distance of aorta from chest wall and calcification of aorta [facility] 1945 Sex: [...] MDReport Verified Date/Time: 09/07/2021 17:57:58 Reading Location: [facility] Radiology Reading RoomAddendum EndsFINAL REPORT CTA Aorta [...] aorta. There is no acute aortic pathology. Boot Turner dimensions of the thoracic aorta are as [...] Signed: Bhargav Humphreys MDReport Verified Date/Time: 0:03:27 CT, CTA [id number] 17:57:00Unlisted Reason for Exam - Click Yes and Enter Reason Below->YesUnlisted Reason for Exam->Evaluate descending aorta for calcification down to femoral vessels, prior to cannulation of femoral artery and vein for cardiac surgery. [facility] 1945 Sex: MAddendum [...] MDReport Verified Date/Time: 09/07/2021 17:57:58 Reading Location: [facility] Radiology Reading RoomAddendum EndsFINAL REPORT CTA Aorta [...] aorta. There is no acute aortic pathology. Boot Turner dimensions of the thoracic aorta are as [...] MDReport Verified Date/Time: 09/06/2021 10:03:27 LACTIC ACID, [id number] 17:36:22 Test Item Value Reference Range Interpretation Comments LACTATE BLOOD 8.2 mmol/L 0.5-2.2 HH Specimen sligh tly ARTERIAL (2) (BEAKER) hemoly zed (test code = 2874) Principal Network Architect ID - MARZENA MHGB/HCT (H&H) - STAT [id number] 17:15:52 Test Item Value Reference Range Interpretation Comments HEMOGLOBIN (BEAKER) (test code = 8.7 GM/DL 13.0-16.8 L 410) HEMATOCRIT (BEAKER) (test code = 26.0 % 40.0-50.0 L 411) GLUCOSE-STAT [id number] 17:15:51 Test Item Value Reference Range Interpretation Comments GLUCOSE RANDOM (BEAKER) (test code 179 mg/dL 70-110 H = 652) BLOOD GAS, [id number] 17:15:50 Test Item Value Reference Range Interpretation [...] (BEAKER) (test code = 1819) 40.0 POTASSIUM-STAT [id number] 17:15:06 Test Item Value Reference Range Interpretation Comments POTASSIUM (BEAKER) (test code = 3.6 meq/L 3.6-5.5 379) SODIUM NA-STAT [id number] 17:15:05 Test Item Value Reference Range Interpretation Comments SODIUM (BEAKER) (test code = 381) 138 meq/L 136-145 LACTIC ACID, [id number] 15:47:03 Test Item Value Reference Range Interpretation Comments LACTATE BLOOD 5.7 mmol/L 0.5-2.2 HH Specimen moder ately ARTERIAL (2) (BEAKER) hemoly zed (test code = 2874) Principal Network Architect ID - MARZENA MBASIC METABOLIC [id number] 15:45:08 Test Item Value Reference Range Interpretation [...] S NOT APPLICABLE FOR DIALYSIS PATIEN TS. Principal Network Architect ID - MARZENA [id number] 15:45:07 Test Item Value Reference Range Interpretation Comments PHOSPHORUS (BEAKER) 3.1 mg/dL 2.3-4.7 Specimen slightly (test code = 604) hemolyzed Principal Network Architect ID - MARZENA [id number] 15:45:06 Test Item Value Reference Range Interpretation Comments MAGNESIUM (BEAKER) 2.9 mg/dL 1.6-2.6 H Specimen slightly (test code = 627) hemolyzed Principal Network Architect ID - MARZENA MCBC W/PLT COUNT & AUTO [id number] 15:40:58 Test Item Value Reference Range Interpretation [...] 0-1 PERCENT (BEAKER) (test code = 2801) [id number] 15:37:40 Test Item Value Reference Range Interpretation [...] is 2.5-3.5 for patients with mechanical heart valves.[id number] 15:37:05 Test Item Value Reference Range Interpretation Comments Fibrinogen (test code = 3255-7) 466 mg/dl 225-434 H Lab Interpretation (test code = Abnormal 38386-9) [facility] 15:37:05 Test Item Value Reference Range Interpretation Comments Fibrinogen (test code = 3255-7) 466 mg/dl 225-434 H Lab Interpretation (test code = Abnormal 92958-9) [facility] 15:37:05 Test Item Value Reference Range Interpretation Comments Fibrinogen (test code = 3255-7) 466 mg/dl 225-434 H Lab Interpretation (test code = Abnormal 62080-5) [facility]20[facility] 15:37:05 Test Item Value Reference Range Interpretation Comments FIBRINOGEN LEVEL (BEAKER) (test 466 mg/dl 225-434 H code = 658) PROTHROMBIN TIME/[id number] 15:36:48 Test Item Value Reference Range Interpretation Comments PROTIME (BEAKER) 18.7 seconds 11.9-14.2 H (test code = 759) INR (BEAKER) (test 1.58 See_Comment [Automat ed message] code = 370) The system [employer] generated this result transmitted ref erence range: <=5.90. The reference range was not used to int erpret this result as normal/abnormal . RECOMMENDED COUMADIN/WARFARIN INR THERAPY RANGESSTANDARD DOSE: 2.0 - 3.0 Includes: PROPHYLAXIS for venous thrombosis, systemic embolization; TREATMENT for venous thrombosis and/or pulmonary embolus.HIGH RISK: Target INR is 2.5-3.5 for patients with mechanical heart valves.BLOOD GAS, [id number] 15:31:17 Test Item Value Reference Range Interpretation [...] (test code = 1819) 60.0 OXYGEN SATURATION, [id number] 15:30:38 Test Item Value Reference Range Interpretation Comments O2 SATURATION (MEASURED) (BEAKER) 66.2 % (test code = 1455) RAD, CHEST, 1 VIEW, NON [id number] 15:30:00Reason for exam:->Status post CV Surgery post op day 0Should this be performed at the bedside?->Yes [facility] 1945 Sex: MFINAL REPORT Chest dated 09/07/2021 COMPARISON: September 05, 2021 Clinical Information: Status post CV Surgery post op day 0 Comment: Heart is enlarged. Pulmonary vasculature is indistinct. Airspace disease is seen bilaterally suggestive of pulmonary edema. Endotracheal tube, nasogastric tube, L[place]-Glen catheter, and right chest tube are present. No pneumothorax is seen. Signed: Halley Khan Verified Date/Time: 09/07/2021 15:30:25 Reading Location: [facility] Radiology Reading Room Prepare [id number] 14:47:00 Test Item Value Reference Range Interpretation Comments CROSSMATCH (test code = COMPATIBLE 2264) Unit ABO (test code = A Pos 1856495) UNIT NUMBER (test code = [id number] 934-0) Status (test code = RETURNED FROM ISSUE 6292681) Blood Bank Product (test RED BLOOD CELLS code = 2263) PRODUCT CODE (test code = I8056T10 933-2) [facility] Center[facility] [id number] 14:47:00 Test Item Value Reference Range Interpretation Comments Unit ABO (test code = A Pos 7022684) UNIT NUMBER (test code = [id number] 934-0) Status (test code = RETURNED FROM ISSUE 9140324) Blood Bank Product (test FFP code = 2263) PRODUCT CODE (test code = C2081B56 933-2) [facility] [id number] 14:47:00 Test Item Value Reference Range Interpretation Comments CROSSMATCH (test code = COMPATIBLE 2264) Unit ABO (test code = A Pos 2477004) UNIT NUMBER (test code = [id number] 934-0) Status (test code = RETURNED FROM ISSUE 7711935) Blood Bank Product (test RED BLOOD CELLS code = 2263) PRODUCT CODE (test code = C2507G72 933-2) [facility] [id number] 14:47:00 Test Item Value Reference Range Interpretation Comments Unit ABO (test code = A Pos 7668853) UNIT NUMBER (test code = [id number] 934-0) Status (test code = RETURNED FROM ISSUE 2798196) Blood Bank Product (test FFP code = 2263) PRODUCT CODE (test code = K8237R12 933-2) [facility] [id number] 14:47:00 Test Item Value Reference Range Interpretation Comments CROSSMATCH (test code = COMPATIBLE 2264) Unit ABO (test code = A Pos 7489731) UNIT NUMBER (test code = [id number] 934-0) Status (test code = RETURNED FROM ISSUE 3337195) Blood Bank Product (test RED BLOOD CELLS code = 2263) PRODUCT CODE (test code = Y5463H14 933-2) [facility] [id number] 14:47:00 Test Item Value Reference Range Interpretation Comments Unit ABO (test code = A Pos 2910807) UNIT NUMBER (test code = [id number] 934-0) Status (test code = RETURNED FROM ISSUE 9249849) Blood Bank Product (test FFP code = 2263) PRODUCT CODE (test code = U7766L88 933-2) [facility] CenterPHOSPHORUS2022-01-20 14:14:33 Test Item Value Reference Range Interpretation Comments PHOSPHORUS (BEAKER) (test code = 3.5 mg/dL 2.3-4.7 604) Principal Network Architect ID - BSCBC W/PLT COUNT & AUTO [id number] 13:56:03 Test Item Value Reference Range Interpretation [...] 0-1 PERCENT (BEAKER) (test code = 2801) [id number] 13:40:15 Test Item Value Reference Range Interpretation Comments PARTIAL THROMBOPLASTIN TIME 40.7 seconds 22.5-36.0 H (BEAKER) (test code = 760) [id number] 13:40:14 Test Item Value Reference Range Interpretation Comments FIBRINOGEN LEVEL (BEAKER) (test 374 mg/dl 225-434 code = 658) PROTHROMBIN TIME/[id number] 13:40:08 Test Item Value Reference Range Interpretation Comments PROTIME (BEAKER) 21.5 seconds 11.9-14.2 H (test code = 759) INR (BEAKER) (test 1.89 See_Comment [Automat ed message] code = 370) The system [employer] generated this result transmitted ref erence range: <=5.90. The reference range was not used to int erpret this result as normal/abnormal . RECOMMENDED COUMADIN/WARFARIN INR THERAPY RANGESSTANDARD DOSE: 2.0 - 3.0 Includes: PROPHYLAXIS for venous thrombosis, systemic embolization; TREATMENT for venous thrombosis and/or pulmonary embolus.HIGH RISK: Target INR is 2.5-3.5 for patients with mechanical heart valves.CALCIUM, [id number] 13:38:49 Test Item Value Reference Range Interpretation Comments CALCIUM IONIZED (BEAKER) (test 1.13 mmol/L 1.12-1.27 code = 698) PH, BLOOD (BEAKER) (test code = 7.35 1810) GLUCOSE-STAT [id number] 13:37:55 Test Item Value Reference Range Interpretation Comments GLUCOSE RANDOM (BEAKER) (test code 187 mg/dL 70-110 H = 652) HGB/HCT (H&H) - STAT [id number] 13:37:55 Test Item Value Reference Range Interpretation Comments HEMOGLOBIN (BEAKER) (test code = 8.0 GM/DL 13.0-16.8 L 410) HEMATOCRIT (BEAKER) (test code = 24.0 % 40.0-50.0 L 411) BLOOD GAS, [id number] 13:37:54 Test Item Value Reference Range Interpretation [...] (test code = 1819) 94.0 SODIUM NA-STAT [id number] 13:37:41 Test Item Value Reference Range Interpretation Comments SODIUM (BEAKER) (test code = 381) 135 meq/L 136-145 L POTASSIUM-STAT [id number] 13:37:41 Test Item Value Reference Range Interpretation Comments POTASSIUM (BEAKER) (test code = 3.6 meq/L 3.6-5.5 379) Platelet [id number] 13:30:37 Test Item Value Reference Range Interpretation Comments Platelets (test code 136 See_Comment L [Autom ated = 777-3) message] The system which generated this result transmit dante reference range : 150 - 450 K/CU MM. The reference range was not u sed to interpret th is result as normal/abnormal . EMERSON (test code = EMERSON) Principal Network Architect ID - [id number] Lab Interpretation Abnormal (test code = 51971-6) [facility] CenterPlate[facility] [id number] 13:30:37 Test Item Value Reference Range Interpretation Comments Platelets (test code 136 See_Comment L [Autom ated = 777-3) message] The system which generated this result transmit dante reference range : 150 - 450 K/CU MM. The reference range was not u sed to interpret th is result as normal/abnormal . EMERSON (test code = EMERSON) Principal Network Architect ID - [id number] Lab Interpretation Abnormal (test code = 96580-7) [facility] CenterPlatelet [id number] 13:30:37 Test Item Value Reference Range Interpretation Comments Platelets (test code 136 See_Comment L [Autom ated = 777-3) message] The system which generated this result transmit dante reference range : 150 - 450 K/CU MM. The reference range was not u sed to interpret th is result as normal/abnormal . EMERSON (test code = EMERSON) Principal Network Architect ID - [id number] Lab Interpretation Abnormal (test code = 44953-7) [facility] Center[facility] [id number] 13:30:37 Test Item Value Reference Range Interpretation Comments PLATELET COUNT (BEAKER) (test 136 K/CU MM 150-450 L code = 756) Principal Network Architect ID - [id number], [id number] 13:24:01 Test Item Value Reference Range Interpretation Comments CALCIUM IONIZED (BEAKER) (test 1.23 mmol/L 1.12-1.27 code = 698) PH, BLOOD (BEAKER) (test code = 7.35 1810) HGB/HCT (H&H) - STAT [id number] 13:23:58 Test Item Value Reference Range Interpretation Comments HEMOGLOBIN (BEAKER) (test code = 8.2 GM/DL 13.0-16.8 L 410) HEMATOCRIT (BEAKER) (test code = 24.0 % 40.0-50.0 L 411) GLUCOSE-STAT [id number] 13:23:57 Test Item Value Reference Range Interpretation Comments GLUCOSE RANDOM (BEAKER) (test code 212 mg/dL 70-110 H = 652) BLOOD GAS, [id number] 13:23:56 Test Item Value Reference Range Interpretation [...] (BEAKER) (test code = 1819) 100.0 POTASSIUM-STAT [id number] 13:23:26 Test Item Value Reference Range Interpretation Comments POTASSIUM (BEAKER) (test code = 3.9 meq/L 3.6-5.5 379) SODIUM NA-STAT [id number] 13:23:25 Test Item Value Reference Range Interpretation Comments SODIUM (BEAKER) (test code = 381) 135 meq/L 136-145 L GLUCOSE-STAT [id number] 12:29:15 Test Item Value Reference Range Interpretation Comments GLUCOSE RANDOM (BEAKER) (test code 181 mg/dL 70-110 H = 652) HGB/HCT (H&H) - STAT [id number] 12:29:15 Test Item Value Reference Range Interpretation Comments HEMOGLOBIN (BEAKER) (test code = 8.3 GM/DL 13.0-16.8 L 410) HEMATOCRIT (BEAKER) (test code = 24.0 % 40.0-50.0 L 411) SODIUM NA-STAT [id number] 12:29:14 Test Item Value Reference Range Interpretation Comments SODIUM (BEAKER) (test code = 381) 133 meq/L 136-145 L BLOOD GAS, [id number] 12:29:13 Test Item Value Reference Range Interpretation [...] (BEAKER) (test code = 1819) 70.0 POTASSIUM-STAT [id number] 12:23:50 Test Item Value Reference Range Interpretation Comments POTASSIUM (BEAKER) (test code = 5.4 meq/L 3.6-5.5 379) HGB/HCT (H&H) - STAT [id number] 12:19:25 Test Item Value Reference Range Interpretation Comments HEMOGLOBIN (BEAKER) (test code = 7.8 GM/DL 13.0-16.8 L 410) HEMATOCRIT (BEAKER) (test code = 23.0 % 40.0-50.0 L 411) GLUCOSE-STAT [id number] 12:19:24 Test Item Value Reference Range Interpretation Comments GLUCOSE RANDOM (BEAKER) (test code 185 mg/dL 70-110 H = 652) BLOOD GAS, [id number] 12:19:23 Test Item Value Reference Range Interpretation [...] (test code = 1819) 70.0 SODIUM NA-STAT [id number] 12:19:23 Test Item Value Reference Range Interpretation Comments SODIUM (BEAKER) (test code = 381) 132 meq/L 136-145 L POTASSIUM-STAT [id number] 12:19:10 Test Item Value Reference Range Interpretation Comments POTASSIUM (BEAKER) (test code = 5.1 meq/L 3.6-5.5 379) Hemoglobin [id number] 12:09:07 Test Item Value Reference Range Interpretation [...] ADM Lab Interpretation Normal (test code = 57309-4) [facility] CenterHem[facility] [id number] 12:09:07 Test Item Value Reference Range Interpretation [...] ADM Lab Interpretation Normal (test code = 32611-8) [facility] CenterHemoglobin [id number] 12:09:07 Test Item Value Reference Range Interpretation [...] ADM Lab Interpretation Normal (test code = 41796-2) [facility] CenterHEMOGLOBIN [id number] 12:09:07 Test Item Value Reference Range Interpretation [...] 5.7- 6.4% indicates increased risk for diabetes (prediabetes)."Principal Network Architect ID - ADM LACTIC ACID, [id number] 12:07:07 Test Item Value Reference Range Interpretation Comments LACTATE BLOOD 1.0 mmol/L 0.5-2.2 Specimen sligh tly ARTERIAL (2) (BEAKER) hemoly zed (test code = 2874) Principal Network Architect ID - BSGLUCOSE-STAT [id number] 11:24:11 Test Item Value Reference Range Interpretation Comments GLUCOSE RANDOM (BEAKER) (test code 191 mg/dL 70-110 H = 652) HGB/HCT (H&H) - STAT [id number] 11:24:11 Test Item Value Reference Range Interpretation Comments HEMOGLOBIN (BEAKER) (test code = 7.9 GM/DL 13.0-16.8 L 410) HEMATOCRIT (BEAKER) (test code = 23.0 % 40.0-50.0 L 411) SODIUM NA-STAT [id number] 11:24:10 Test Item Value Reference Range Interpretation Comments SODIUM (BEAKER) (test code = 381) 132 meq/L 136-145 L BLOOD GAS, [id number] 11:24:09 Test Item Value Reference Range Interpretation [...] (test code = 1819) 80.0 LACTIC ACID, [id number] 11:12:30 Test Item Value Reference Range Interpretation Comments LACTATE BLOOD 1.1 mmol/L 0.5-2.2 Specimen sligh tly ARTERIAL (2) (BEAKER) hemoly zed (test code = 2874) Principal Network Architect ID - BSPOTASSIUM-STAT [id number] 11:12:12 Test Item Value Reference Range Interpretation Comments POTASSIUM (BEAKER) (test code = 4.6 meq/L 3.6-5.5 379) HGB/HCT (H&H) - STAT [id number] 10:59:07 Test Item Value Reference Range Interpretation Comments HEMOGLOBIN (BEAKER) (test code = 8.9 GM/DL 13.0-16.8 L 410) HEMATOCRIT (BEAKER) (test code = 26.0 % 40.0-50.0 L 411) GLUCOSE-STAT [id number] 10:59:06 Test Item Value Reference Range Interpretation Comments GLUCOSE RANDOM (BEAKER) (test code 153 mg/dL 70-110 H = 652) SODIUM NA-STAT [id number] 10:59:05 Test Item Value Reference Range Interpretation Comments SODIUM (BEAKER) (test code = 381) 132 meq/L 136-145 L BLOOD GAS, [id number] 10:59:04 Test Item Value Reference Range Interpretation [...] (BEAKER) (test code = 1819) 80.0 POTASSIUM-STAT [id number] 10:58:12 Test Item Value Reference Range Interpretation Comments POTASSIUM (BEAKER) (test code = 5.3 meq/L 3.6-5.5 379) HGB/HCT (H&H) - STAT [id number] 08:47:12 Test Item Value Reference Range Interpretation Comments HEMOGLOBIN (BEAKER) (test code = 9.5 GM/DL 13.0-16.8 L 410) HEMATOCRIT (BEAKER) (test code = 28.0 % 40.0-50.0 L 411) GLUCOSE-STAT [id number] 08:47:11 Test Item Value Reference Range Interpretation Comments GLUCOSE RANDOM (BEAKER) (test code 121 mg/dL 70-110 H = 652) BLOOD GAS, [id number] 08:47:10 Test Item Value Reference Range Interpretation [...] (BEAKER) (test code = 1819) 95.0 CALCIUM, [id number] 08:46:35 Test Item Value Reference Range Interpretation Comments CALCIUM IONIZED (BEAKER) (test 1.12 mmol/L 1.12-1.27 code = 698) PH, BLOOD (BEAKER) (test code = 7.46 1810) POTASSIUM-STAT [id number] 08:46:14 Test Item Value Reference Range Interpretation Comments POTASSIUM (BEAKER) (test code = 3.7 meq/L 3.6-5.5 379) SODIUM NA-STAT [id number] 08:46:13 Test Item Value Reference Range Interpretation Comments SODIUM (BEAKER) (test code = 381) 135 meq/L 136-145 L [id number] 05:26:11 Test Item Value Reference Range Interpretation Comments TSH (test code = 1.491 See_Comment [Automated 57938-8) message] The system which generated this result transmit dante reference range : 0.350 - 4.940 uIU/mL. The reference range was not used to interpret this result as normal/abnormal . EMERSON (test code = EMERSON) Principal Network Architect ID - MARZENA Krishna Lab Interpretation Normal (test code = 64885-2) [facility] CenterTSH[facility] 05:26:11 Test Item Value Reference Range Interpretation Comments TSH (test code = 1.491 See_Comment [Automated 48207-3) message] The system which generated this result transmit dante reference range : 0.350 - 4.940 uIU/mL. The reference range was not used to interpret this result as normal/abnormal . EMERSON (test code = EMERSON) Principal Network Architect ID - MARZENA Krishna Lab Interpretation Normal (test code = 96880-6) [facility]SH[facility] 05:26:11 Test Item Value Reference Range Interpretation Comments TSH (test code = 1.491 See_Comment [Automated 05431-7) message] The system which generated this result transmit dante reference range : 0.350 - 4.940 uIU/mL. The reference range was not used to interpret this result as normal/abnormal . EMERSON (test code = EMERSON) Principal Network Architect ID - MARZENA Krishna Lab Interpretation Normal (test code = 66460-6) [facility] CenterTSH[facility] 05:26:11 Test Item Value Reference Range Interpretation Comments THYROID STIMULATING HORMONE 1.491 uIU/mL 0.350-4.940 (BEAKER) (test code = 772) Principal Network Architect ID - MARZENA MLipid [id number] 04:13:29 Test Item Value Reference Range Interpretation Comments Triglycerides (test 49 mg/dL code = 2571-8) Cholesterol (test code 92 mg/dL = 2093-3) HDL (test code = 43 mg/dL 5-9) LDL Calculated (test 39 mg/dL code = 46991-9) EMERSON (test code = EMERSON) Triglyceride Reference Range: Low Risk <150 Borderline 150-199 High Risk 200-499 Very High Risk >=500 Cholesterol Reference Range: Low Risk <200 Borderline 200-239 High Risk >240 HDL Cholesterol Reference Range: Low Risk >=60 High Risk <40 LDL Cholesterol Reference Range: Optimal <100 Near Optimal 100-129 Borderline 130-159 High 160-189 Very High >=190 Principal Network Architect ID - BSOperator ID - BS [facility] CenterLipid [id number] 04:13:29 Test Item Value Reference Range Interpretation Comments Triglycerides (test 49 mg/dL code = 2571-8) Cholesterol (test code 92 mg/dL = 3-3) HDL (test code = 43 mg/dL 2085-04) LDL Calculated (test 39 mg/dL code = 32154-1) EMERSON (test code = EMERSON) Triglyceride Reference Range: Low Risk <150 Borderline 150-199 High Risk 200-499 Very High Risk >=500 Cholesterol Reference Range: Low Risk <200 Borderline 200-239 High Risk >240 HDL Cholesterol Reference Range: Low Risk >=60 High Risk <40 LDL Cholesterol Reference Range: Optimal <100 Near Optimal 100-129 Borderline 130-159 High 160-189 Very High >=190 Principal Network Architect ID - BSOperator ID - BS [facility] CenterLipid [id number] 04:13:29 Test Item Value Reference Range Interpretation Comments Triglycerides (test 49 mg/dL code = 2571-8) Cholesterol (test code 92 mg/dL = 3-3) HDL (test code = 43 mg/dL 2085-04) LDL Calculated (test 39 mg/dL code = 59490-4) EMERSON (test code = EMERSON) Triglyceride Reference Range: Low Risk <150 Borderline 150-199 High Risk 200-499 Very High Risk >=500 Cholesterol Reference Range: Low Risk <200 Borderline 200-239 High Risk >240 HDL Cholesterol Reference Range: Low Risk >=60 High Risk <40 LDL Cholesterol Reference Range: Optimal <100 Near Optimal 100-129 Borderline 130-159 High 160-189 Very High >=190 Principal Network Architect ID - BSOperator ID - BS [facility] CenterLIPID [id number] 04:13:29 Test Item Value Reference Range Interpretation [...] Borderline 130-159 High 160-189 Very High >=190 Principal Network Architect ID - BSOperator ID - BSCBC W/PLT COUNT & AUTO [id number] 03:49:38 Test Item Value Reference Range Interpretation [...] (BEAKER) (test code = 2801) COMPREHENSIVE METABOLIC [id number] 03:30:53 Test Item Value Reference Range Interpretation [...] S NOT APPLICABLE FOR DIALYSIS PATIEN TS. Principal Network Architect ID - VMMSRGTJKHX8057-60-75 03:30:53 Test Item Value Reference Range Interpretation Comments MAGNESIUM (BEAKER) (test code = 2.3 mg/dL 1.6-2.6 627) Principal Network Architect ID - [id number] 03:22:52 Test Item Value Reference Range Interpretation Comments PARTIAL THROMBOPLASTIN TIME 67.2 seconds 22.5-36.0 H (BEAKER) (test code = 760) PROTHROMBIN [id number] 03:21:30 Test Item Value Reference Range Interpretation Comments PROTIME (BEAKER) 15.3 seconds 11.9-14.2 H (test code = 759) INR (BEAKER) (test 1.23 See_Comment [Automat ed message] code = 370) The system [employer] generated this result transmitted ref erence range: <=5.90. The reference range was not used to int erpret this result as normal/abnormal . RECOMMENDED COUMADIN/WARFARIN INR THERAPY RANGESSTANDARD DOSE: 2.0 - 3.0 Includes: PROPHYLAXIS for venous thrombosis, systemic embolization; TREATMENT for venous thrombosis and/or pulmonary embolus.HIGH RISK: Target INR is 2.5-3.5 for patients with mechanical heart valves.BLOOD GAS, [id number] 03:08:40 Test Item Value Reference Range Interpretation [...] (BEAKER) (test code = 1819) 21.0 POCT-GLUCOSE [id number] 21:21:10 Test Item Value Reference Range Interpretation Comments POC-GLUCOSE METER 163 mg/dL 70-110 H : TESTED A T [facility] 6720 (BEAKER) (test code = [place], 1538) [address]: Principal Network Architect/Techni bart ID = [id number] for GLORAI VALDERRAMA PROTHROMBIN [id number] 20:13:27 Test Item Value Reference Range Interpretation Comments PROTIME (BRAXTON) 15.3 seconds 11.9-14.2 H (test code = 759) INR (BRAXTON) (test 1.23 See_Comment [Automat ed message] code = 370) The system [employer] generated this result transmitted ref erence range: <=5.90. The reference range was not used to int erpret this result as normal/abnormal . RECOMMENDED COUMADIN/WARFARIN INR THERAPY RANGESSTANDARD DOSE: 2.0 - 3.0 Includes: PROPHYLAXIS for venous thrombosis, systemic embolization; TREATMENT for venous thrombosis and/or pulmonary embolus.HIGH RISK: Target INR is 2.5-3.5 for patients with mechanical heart valves.[id number] 18:18:05 Test Item Value Reference Range Interpretation Comments PARTIAL THROMBOPLASTIN TIME 65.4 seconds 22.5-36.0 H ([facility]) (test code = 760) POCT-GLUCOSE [id number] 17:26:15 Test Item Value Reference Range Interpretation Comments POC-GLUCOSE METER 146 mg/dL 70-110 H : Notified RN/MD: (BRAXTON) (test code = TESTED AT [place] [address]) [facility], [address]: Principal Network Architect/Techni bart ID = [id number] for LL OYD, TIKEYA POCT-GLUCOSE [id number] 11:21:58 Test Item Value Reference Range Interpretation Comments POC-GLUCOSE METER 142 mg/dL 70-110 H : Notified RN/MD: (BRAXTON) (test code = TESTED AT [place] [address]) [facility], [address]: Principal Network Architect/Techni bart ID = [id number] for LL OYD, TIKEYA [id number] 11:20:08 Test Item Value Reference Range Interpretation Comments PARTIAL THROMBOPLASTIN TIME 78.4 seconds 22.5-36.0 H [facility] (test code = 760) POCT-GLUCOSE [id number] 08:18:13 Test Item Value Reference Range Interpretation Comments POC-GLUCOSE METER 154 mg/dL 70-110 H : Notified RN/MD: (BEAKER) (test code = TESTED AT [facility] 9943 1812) [place], [address]: Principal Network Architect/Techni bart ID = [id number] for GODWIN FLOYD [id number] 06:28:05 Test Item Value Reference Range Interpretation Comments MAGNESIUM (BEAKER) (test code = 2.2 mg/dL 1.6-2.6 627) Principal Network Architect ID Patrick SARAH WBASIC METABOLIC [id number] 06:28:04 Test Item Value Reference Range Interpretation [...] S NOT APPLICABLE FOR DIALYSIS PATIEN TS. Principal Network Architect ID Patrick SARAH WCBC W/PLT COUNT & AUTO [id number] 05:57:11 Test Item Value Reference Range Interpretation [...] 0-1 PERCENT (BEAKER) (test code = 2801) [id number] 05:39:02 Test Item Value Reference Range Interpretation Comments PARTIAL THROMBOPLASTIN TIME 55.5 seconds 22.5-36.0 H (BEAKER) (test code = 760) BLOOD GAS, [id number] 05:24:42 Test Item Value Reference Range Interpretation [...] FIO2 (BEAKER) (test code = 1819) 21.0 [id number] 23:08:23 Test Item Value Reference Range Interpretation Comments PARTIAL THROMBOPLASTIN TIME 55.5 seconds 22.5-36.0 H (BEAKER) (test code = 760) POCT-GLUCOSE [id number] 21:56:54 Test Item Value Reference Range Interpretation Comments POC-GLUCOSE METER 108 mg/dL 70-110 : TESTED A T [facility] 6720 (BEAKER) (test code = [facility], 153) [address]: Principal Network Architect/Techni bart ID = [id number] for Sharon Sol Transesophageal [id number] 21:03:33Ejection FractionSLEH ECHO HEARTLAB [facility] [id number] 21:03:33Ejection FractionSLEH ECHO HEARTLAB [facility]CK[facility] [id number] 21:03:33Ejection FractionSLEH ECHO HEARTLAB [facility]Marc[facility] HospitalPOCT-GLUCOSE [id number] 17:16:14 Test Item Value Reference Range Interpretation Comments POC-GLUCOSE METER 112 mg/dL 70-110 H : TESTED A T [facility] 6720 (BEAKER) (test code = [facility] Srikanth [facility], 1538) [address]: Principal Network Architect/Techni bart ID = [id number] for NAHED HERNANDEZ B-type Natriuretic Factor (BNP)2021-09-05 17:13:19 Test Item Value Reference Range Interpretation Comments BNP (test code = 98665-5) 427 pg/mL 0-100 H EMERSON (test code = EMERSON) Principal Network Architect ID - BS Lab Interpretation (test Abnormal code = 70067-6) [facility] (BNP)2021-09-05 17:13:19 Test Item Value Reference Range Interpretation Comments BNP (test code = 87922-1) 427 pg/mL 0-100 H EMERSON (test code = EMERSON) Principal Network Architect ID - BS Lab Interpretation (test Abnormal code = 93634-1) [facility] CenterB[facility] Factor (BNP)2021-09-05 17:13:19 Test Item Value Reference Range Interpretation Comments BNP (test code = 63592-3) 427 pg/mL 0-100 H EMERSON (test code = EMERSON) Principal Network Architect ID - BS Lab Interpretation (test Abnormal code = 70803-8) [facility] CenterB-TYPE NATRIURETIC FACTOR (BNP)2021-09-05 17:13:19 Test Item Value Reference Range Interpretation Comments B-TYPE NATRIURETIC PEPTIDE (BEAKER) 427 pg/mL 0-100 H (test code = 700) Principal Network Architect ID - [id number] 17:08:24 Test Item Value Reference Range Interpretation Comments MAGNESIUM (BEAKER) (test code = 2.3 mg/dL 1.6-2.6 627) Principal Network Architect ID - BSBASIC METABOLIC [id number] 17:08:23 Test Item Value Reference Range Interpretation [...] S NOT APPLICABLE FOR DIALYSIS PATIEN TS. Principal Network Architect ID - [id number] 16:56:34 Test Item Value Reference Range Interpretation Comments PARTIAL THROMBOPLASTIN TIME 78.6 seconds 22.5-36.0 H ([facility]) (test code = 760) POCT-GLUCOSE [id number] 11:40:10 Test Item Value Reference Range Interpretation Comments POC-GLUCOSE METER 123 mg/dL 70-110 H : [facility]) (test code = BRIJESHAR Srikanth [facility], 1538) [address]: Principal Network Architect/Techni bart ID = [id number] for BL HERIBERTO COLBERT [id number] 08:48:28 Test Item Value Reference Range Interpretation Comments PARTIAL THROMBOPLASTIN TIME 50.1 seconds 22.5-36.0 H ([facility]) (test code = 760) POCT-GLUCOSE [id number] 08:33:40 Test Item Value Reference Range Interpretation Comments POC-GLUCOSE METER 83 mg/dL 70-110 : [facility]) (test [facility] = [facility], 1538) [address]: Principal Network Architect/Techni bart ID = [id number] for NAHED JOHN Carotid doppler [id number] 07:35:52Ejection FractionSLEH ECHO HEARTLAB [facility]Marc[facility] HospitalCarotid doppler [id number] 07:35:52Ejection FractionSLEH ECHO HEARTLAB [facility] CenterCarotid doppler [id number] 07:35:52Ejection FractionSLE ECHO HEARTLAB MKMarcum and Wallace Memorial HospitalAPTT2022-01-18 05:35:19 Test Item Value Reference Range Interpretation Comments PARTIAL THROMBOPLASTIN TIME > seconds 22.5-36.0 HH ([facility]) (test code = 760) RAD, CHEST, 1 VIEW, NON [id number] 05:07:00Reason for exam:->Respiratory failureShould this be performed at the bedside?->Yes [facility] 1945 Sex: MFINAL REPORT RAD, CHEST, 1 VIEW, NON DEPT INDICATION: Respiratory failure COMPARISON: Prior day's exam FINDINGS: Portable frontal view of the chest. IMPRESSION: Lungs and pleura: Bilateral pulmonary opacities are reduced. No pneumothorax.Heart and mediastinum: Stable contours. Additional findings: None. Signed: Link Pak MDReport Verified Date/Time: 09/05/2021 05:07:55 [id number] 05:06:53 Test Item Value Reference Range Interpretation Comments MAGNESIUM (BEAKER) (test code = 2.3 mg/dL 1.6-2.6 627) Principal Network Architect ID - SHANE GBASIC METABOLIC [id number] 05:06:52 Test Item Value Reference Range Interpretation [...] S NOT APPLICABLE FOR DIALYSIS PATIEN TS. Principal Network Architect ID - SHANE GVancomycin level, [id number] 05:03:34 Test Item Value Reference Range Interpretation Comments Vancomycin Tr (test code = 7.0 ug/mL 10.0-20.0 L 4092-3) EMERSON (test code = EMERSON) Principal Network Architect ID - SHANE G Lab Interpretation (test Abnormal code = 92052-3) [facility] CenterVancomycin level, [id number] 05:03:34 Test Item Value Reference Range Interpretation Comments Vancomycin Tr (test code = 7.0 ug/mL 10.0-20.0 L 4092-3) EMERSON (test code = EMERSON) Principal Network Architect ID - SHANE G Lab Interpretation (test Abnormal code = 26578-1) [facility] CenterVancomycin level, [id number] 05:03:34 Test Item Value Reference Range Interpretation Comments Vancomycin Tr (test code = 7.0 ug/mL 10.0-20.0 L 4092-3) EMERSON (test code = EMERSON) Principal Network Architect ID - SHANE G Lab Interpretation (test Abnormal code = 73136-6) [facility] CenterVANCOMYCIN LEVEL, [id number] 05:03:34 Test Item Value Reference Range Interpretation Comments VANCOMYCIN TROUGH (BEAKER) (test 7.0 ug/mL 10.0-20.0 L code = 522) Principal Network Architect ID - SHANE GBLOOD GAS, [id number] 04:54:51 Test Item Value Reference Range Interpretation [...] (BEAKER) (test code = 1819) 21.0 POCT-GLUCOSE [id number] 00:08:56 Test Item Value Reference Range Interpretation Comments POC-GLUCOSE METER 92 mg/dL 70-110 : TESTED A T [facility] 6720 (BEAKER) (test code [facility], = 1538) [address]: Principal Network Architect/Techni bart ID = [id number] for Christopher Hoskins [id number] 22:59:43 Test Item Value Reference Range Interpretation Comments PARTIAL THROMBOPLASTIN TIME 105.5 seconds 22.5-36.0 H (BEAKER) (test code = 760) POCT-GLUCOSE [id number] 22:43:54 Test Item Value Reference Range Interpretation Comments POC-GLUCOSE METER 131 mg/dL 70-110 H : TESTED A T [facility] 6720 (BEAKER) (test code = DOMINIQUE [facility], 1538) [address]: Principal Network Architect/Techni bart ID = [id number] for ANDI MIGUEL BASIC METABOLIC [id number] 20:21:48 Test Item Value Reference Range Interpretation [...] S NOT APPLICABLE FOR DIALYSIS PATIEN TS. Principal Network Architect ID - [id number] 20:21:48 Test Item Value Reference Range Interpretation Comments MAGNESIUM (BEAKER) (test code = 2.4 mg/dL 1.6-2.6 627) Principal Network Architect ID - DBBLOOD GAS, [id number] 18:19:48 Test Item Value Reference Range Interpretation [...] (BEAKER) (test code = 1819) 21.0 POCT-GLUCOSE [id number] 18:13:29 Test Item Value Reference Range Interpretation Comments POC-GLUCOSE METER 98 mg/dL 70-110 : TESTED A T [facility] 6720 (BEAKER) (test code = [facility] [employer] [facility], 1538) [address]: Principal Network Architect/Techni bart ID = [id number] for MELANIE BRY CELESTES, NAHED [id number] 15:50:51 Test Item Value Reference Range Interpretation Comments PARTIAL THROMBOPLASTIN TIME 79.7 seconds 22.5-36.0 H (BEAKER) (test code = 760) [id number] 14:42:01 Test Item Value Reference Range Interpretation Comments PARTIAL THROMBOPLASTIN TIME 196.8 seconds 22.5-36.0 HH (BEAKER) (test code = 760) [id number] 13:31:24 Test Item Value Reference Range Interpretation Comments PARTIAL THROMBOPLASTIN TIME > seconds 22.5-36.0 HH (BEAKER) (test code = 760) POCT-GLUCOSE [id number] 12:32:34 Test Item Value Reference Range Interpretation Comments POC-GLUCOSE METER 96 mg/dL 70-110 : TESTED A T [facility] 6720 (BEAKER) (test code = [facility], 1538) [address]: Principal Network Architect/Techni bart ID = [id number] for MELANIE SO NICOLE, NAHED POCT-GLUCOSE [id number] 09:39:48 Test Item Value Reference Range Interpretation Comments POC-GLUCOSE METER 93 mg/dL 70-110 : TESTED A T [facility] 6720 (BEAKER) (test code = [place], 1538) [address]: Principal Network Architect/Techni bart ID = [id number] for THOMAS JOHNA [id number] 05:38:09 Test Item Value Reference Range Interpretation Comments MAGNESIUM (BEAKER) (test code = 2.2 mg/dL 1.6-2.6 627) Principal Network Architect ID - KAYLEEN LBASIC METABOLIC [id number] 05:38:08 Test Item Value Reference Range Interpretation [...] S NOT APPLICABLE FOR DIALYSIS PATIEN TS. Principal Network Architect ID - PIAYA [id number] 05:37:51 Test Item Value Reference Range Interpretation Comments PARTIAL THROMBOPLASTIN TIME 74.7 seconds 22.5-36.0 H (BEAKER) (test code = 760) BLOOD GAS, [id number] 05:36:41 Test Item Value Reference Range Interpretation [...] 1819) 21.0 CBC W/PLT COUNT & AUTO [id number] 05:07:56 Test Item Value Reference Range Interpretation [...] = 2801) RAD, CHEST, 1 VIEW, NON [id number] 04:31:00Reason for exam:->Respiratory failureShould this be performed at the bedside?->Yes [facility] 1945 Sex: MFINAL REPORT RAD, CHEST, 1 VIEW, NON DEPT INDICATION: Respiratory failure COMPARISON: Prior day's exam FINDINGS: Portable frontal view of the chest. IMPRESSION: Support Lines: None Lungs and pleura: Reduced airspace and pleural opacities. No pneumothorax.Heart and mediastinum: Stable contours. Additional findings: None. Signed: Link Pak MDReport Verified Date/Time: 09/04/2021 04:31:46 POCT-GLUCOSE [id number] 22:15:29 Test Item Value Reference Range Interpretation Comments POC-GLUCOSE METER 113 mg/dL 70-110 H : TESTED A T [facility] 6720 (BEAKER) (test code = [place] [facility] [place], 1538) [address]: Principal Network Architect/Techni bart ID = [id number] for EVAN COSTELLO [id number] 17:34:10 Test Item Value Reference Range Interpretation Comments Procalcitonin (test code = 0.74 ng/mL <0.05 H 37094-6) EMERSON (test code = EMERSON) SEPSIS RISK (ng/mL)Low: 0.05-0.50Intermedia te: 0.51-2.00High: >=2.01 Lab Interpretation (test Abnormal code = 32549-3) [facility] CenterArxsdkLpukmzzzdioxj2435-22-14 17:34:10 Test Item Value Reference Range Interpretation Comments Procalcitonin (test code = 0.74 ng/mL <0.05 H 23163-1) EMERSON (test code = EMERSON) SEPSIS RISK (ng/mL)Low: 0.05-0.50Intermedia te: 0.51-2.00High: >=2.01 Lab Interpretation (test Abnormal code = 08803-9) [facility] CenterJyldymYclmfqmrfxsgr3043-51-71 17:34:10 Test Item Value Reference Range Interpretation Comments Procalcitonin (test code = 0.74 ng/mL <0.05 H 20633-7) EMERSON (test code = EMERSON) SEPSIS RISK (ng/mL)Low: 0.05-0.50Intermedia te: 0.51-2.00High: >=2.01 Lab Interpretation (test Abnormal code = 88157-7) [facility] CenterQqldtyKXJXCBSAPGNVH9201-04-25 17:34:10 Test Item Value Reference Range Interpretation Comments PROCALCITONIN (BEAKER) (test code 0.74 ng/mL <0.05 H = 3036) SEPSIS RISK (ng/mL)Low: 0.05-0.50Intermediate: 0.51-2.00High: >=2.01BASIC METABOLIC [id number] 17:02:45 Test Item Value Reference Range Interpretation [...] S NOT APPLICABLE FOR DIALYSIS PATIEN TS. Principal Network Architect ID - [id number] 17:02:45 Test Item Value Reference Range Interpretation Comments MAGNESIUM (BEAKER) (test code = 2.3 mg/dL 1.6-2.6 627) Principal Network Architect ID - DBPOCT-GLUCOSE [id number] 16:39:27 Test Item Value Reference Range Interpretation Comments POC-GLUCOSE METER 102 mg/dL 70-110 : TESTED A T [facility] 6720 (BEAKER) (test code = BRIJESHSHAKIRA [facility], 1538) [address]: Principal Network Architect/Techni bart ID = [id number] for Eduardo Brown BLOOD GAS, [id number] 16:20:14 Test Item Value Reference Range Interpretation [...] 2D Echo W/Doppler(CW/PW/Color)2021-09-03 14:12:53Ejection FractionSLEH ECHO HEARTLAB [facility]2D Echo W/Doppler(CW/PW/Color)2021-09-03 14:12:53Ejection FractionSLEH ECHO HEARTLAB [facility]2D Echo W/Doppler(CW/PW/Color) 2021-09-03 14:12:53Ejection FractionSLE ECHO HEARTLAB [facility] CenterMAGNESIUM2022-01-16 07:54:36 Test Item Value Reference Range Interpretation Comments MAGNESIUM (BEAKER) (test code = 2.4 mg/dL 1.6-2.6 627) Principal Network Architect ID - PIAYA LRAD, CHEST, 1 VIEW, NON [id number] 06:39:00Reason for exam:->Respiratory failureShould this be performed at the bedside?->Yes [facility] : 1945 Sex: [...] MDReport Verified Date/Time: 09/03/2021 06:39:59 BASIC METABOLIC [id number] 05:41:02 Test Item Value Reference Range Interpretation [...] S NOT APPLICABLE FOR DIALYSIS PATIEN TS. Principal Network Architect ID - KAYLEEN BASILIOLOOD GAS, [id number] 05:28:49 Test Item Value Reference Range Interpretation [...] = 1819) 50.0 High Sensitivity Troponin I ([facility]Suraj [facility])2021-09-03 05:25:39 Test Item Value Reference Range Interpretation Comments Troponin I HS (test 35 pg/ml See_Comment [Automa dante code = 89272-2) message] The system which generated this result transmitted reference range : <=35. The reference range was not used to interpret this result as normal/abnormal . EMERSON (test code = Principal Network Architect ID - EMERSON) [employer]PARER STAT High Sensitivity Troponin-I results should be used in conjunction with other diagnostic information such as ECG, clinical observations and information, and patient symptoms to aid in the diagnosis of [place]. Lab Interpretation Normal (test code = 57685-6) [facility] Center[facility]rop[facility] ([facility]Suraj [facility] 2021-09-03 05:25:39 Test Item Value Reference Range Interpretation Comments Troponin I HS (test 35 pg/ml See_Comment [Autom ated code = 05937-6) message] The system which generated this result transmitted reference range : <=35. The reference range was not used to interpret this result as normal/abnormal . EMERSON (test code = Principal Network Architect ID - EMERSON) [employer] PREPARER STAT High Sensitivity Troponin-I results should be used in conjunction with other diagnostic information such as ECG, clinical observations and information, and patient symptoms to aid in the diagnosis of [place]. Lab Interpretation Normal (test code = 28708-0) [facility] CenterHigh [facility] Troponin [facility] ([facility]Suraj [facility]) 2021-09-03 05:25:39 Test Item Value Reference Range Interpretation Comments Troponin I HS (test 35 pg/ml See_Comment [Automa dante code = 57641-9) message] The system which generated this result transmitted reference range : <=35. The reference range was not used to interpret this result as normal/abnormal . EMERSON (test code = Principal Network Architect ID - EMERSON) [employer]PARER STAT High Sensitivity Troponin-I results should be used in conjunction with other diagnostic information such as ECG, clinical observations and information, and patient symptoms to aid in the diagnosis of [place]. Lab Interpretation Normal (test code = 62655-5) [facility] CenterHIGH SENSITIVITY TROPONIN [id number] 05:25:39 Test Item Value Reference Range Interpretation Comments HIGH SENSITIVITY 35 pg/ml See_Comment [Automated message] TROPONIN I (test code = The system which [id number]) generated this result transmitted ref erence range: <=35. Th e reference range was not used to int erpret this result as normal/abnormal . Principal Network Architect ID Patrick BEYER LThe [employer] ME[employer]PARER STAT High Sensitivity Troponin-I results should be used in conjunction with other diagnostic information such as ECG, clinical observations and information, and patient symptoms to aid in the diagnosis of TX.B-TYPE NATRIURETIC FACTOR (BNP)2021-09-03 05:25:38 Test Item Value Reference Range Interpretation Comments B-TYPE NATRIURETIC PEPTIDE 1522 pg/mL 0-100 H (BEAKER) (test code = 700) Principal Network Architect ID Patrick BEYER LLactic acid, [id number] 05:08:12 Test Item Value Reference Range Interpretation Comments Lactate, Venous (test code 0.98 mmol/L 0.50-2.20 = 2872) EMERSON (test code = EMERSON) Principal Network Architect ID - KAYLEEN L Lab Interpretation (test Normal code = 25876-9) [facility] CenterLactic acid, [id number] 05:08:12 Test Item Value Reference Range Interpretation Comments Lactate, Venous (test code 0.98 mmol/L 0.50-2.20 = 2872) EMERSON (test code = EMERSON) Principal Network Architect ID - KAYLEEN L Lab Interpretation (test Normal code = 46990-5) [facility] CenterLactic acid, [id number] 05:08:12 Test Item Value Reference Range Interpretation Comments Lactate, Venous (test code 0.98 mmol/L 0.50-2.20 = 2872) EMERSON (test code = EMERSON) Principal Network Architect ID - KAYLEEN L Lab Interpretation (test Normal code = 97964-8) [facility] CenterLACTIC ACID, [id number] 05:08:12 Test Item Value Reference Range Interpretation Comments LACTATE BLOOD VENOUS (2) (BEAKER) 0.98 mmol/L 0.50-2.20 (test code = 2872) Principal Network Architect ID Patrick BEYER LCBC W/PLT COUNT & AUTO [id number] 04:46:58 Test Item Value Reference Range Interpretation [...] (test code = 2801) HIGH SENSITIVITY TROPONIN [id number] 23:24:52 Test Item Value Reference Range Interpretation Comments HIGH SENSITIVITY 60 pg/ml See_Comment H [Automated message] TROPONIN I (test code = The system which [id number]) generated this result transmitted ref erence range: <=35. Th e reference range was not used to int erpret this result as normal/abnormal . Principal Network Architect ID - KAYLEEN LThe S[employer] PREPARER STAT High Sensitivity Troponin-I results should be used in conjunction with other diagnostic information such as ECG, clinical observations and information, and patient symptoms to aid in the diagnosis of TX.LACTIC ACID, [id number] 23:16:31 Test Item Value Reference Range Interpretation Comments LACTATE BLOOD VENOUS 2.39 mmol/L 0.50-2.20 H Specime n slightly (2) (BEAKER) (test hemolyzed code = 3034) Principal Network Architect ID - KAYLEEN LBASIC METABOLIC [id number] 20:00:02 Test Item Value Reference Range Interpretation [...] S NOT APPLICABLE FOR DIALYSIS PATIEN TS. Principal Network Architect ID - DBLACTIC ACID, [id number] 19:50:59 Test Item Value Reference Range Interpretation Comments LACTATE BLOOD VENOUS 3.70 mmol/L 0.50-2.20 H Specime n slightly (2) (BEAKER) (test hemolyzed code = 2872) Principal Network Architect ID - [id number] 18:48:36 Test Item Value Reference Range Interpretation Comments PROCALCITONIN (BEAKER) (test code = < ng/mL <0.05 3036) SEPSIS RISK (ng/mL)Low: 0.05-0.50Intermediate: 0.51-2.00High: >=2.01B-TYPE NATRIURETIC FACTOR (BNP)2021-09-02 18:06:28 Test Item Value Reference Range Interpretation Comments B-TYPE NATRIURETIC PEPTIDE (BEAKER) 801 pg/mL 0-100 H (test code = 700) Principal Network Architect ID - DBHIGH SENSITIVITY TROPONIN [id number] 18:06:07 Test Item Value Reference Range Interpretation Comments HIGH SENSITIVITY 10 pg/ml See_Comment [Automated message] TROPONIN I (test code = The system which 5425113) generated this result transmitted ref erence range: <=35. Th e reference range was not used to int erpret this result as normal/abnormal . Principal Network Architect ID - DBThe S[employer]KED MEAT PREPARER STAT High Sensitivity Troponin-I results should be used in conjunctionwith other diagnostic information such as ECG, clinical observations and information, and patient symptoms to aid in the diagnosis of [place].LACTIC ACID, [id number] 18:03:35 Test Item Value Reference Range Interpretation Comments LACTATE BLOOD 5.0 mmol/L 0.5-2.2 HH Specimen sligh tly ARTERIAL (2) (BEAKER) hemoly zed (test code = 2874) Principal Network Architect ID - DBRAD, CHEST, 1 VIEW, NON [id number] 18:01:00Reason for exam:- >dyspneaShould this be performed at the bedside?->Yes [facility] : 1945 Sex: MFINAL REPORT RAD, CHEST, 1 VIEW, NON DEPT INDICATION: dyspnea COMPARISON: 07/03/21 FINDINGS: Portable frontal view of the chest. IMPRESSION: Support Lines: Overlying leads Lungs andpleura: Bibasilar airspace disease and small bilateral effusions, compatible with mild volume overload. No significant pneumothorax. Heart and mediastinum: Normal contours. Additional findings: None. Signed: Gaby Cordero Verified Date/Time: 09/02/2021 18:01:04 -[id number] 17:41:20 Test Item Value Reference Range Interpretation Comments POC-Glucose (test code = 245 mg/dL 70-110 H : T ESTED AT [facility] 1855) [address] [place] [address], 770 30: Principal Network Architect/Techni bart ID = [id number] for RIA, NAVDEEP Lab Interpretation (test Abnormal code = 92047-7) [facility]-[id number] 17:41:20 Test Item Value Reference Range Interpretation Comments POC-Glucose (test code = 245 mg/dL 70-110 H : T ESTED AT [facility] 1855) [address] [place] [address], 770 30: Principal Network Architect/Techni bart ID = [id number] for RIA, NAVDEEP Lab Interpretation (test Abnormal code = 47249-7) [id number] 17:41:20 Test Item Value Reference Range Interpretation Comments POC-Glucose (test code = 245 mg/dL 70-110 H : T ESTED AT [facility] 1855) [address] [place] [address], 770 30: Principal Network Architect/Techni bart ID = [id number] for RIA, NAVDEEP Lab Interpretation (test Abnormal code = 54933-0) [facility]-[id number] 17:41:20 Test Item Value Reference Range Interpretation Comments POC-GLUCOSE (BEAKER) 245 mg/dL 70-110 H : TESTE D AT [facility] 6720 (test code = 1855) [facility], [address]: Principal Network Architect/Techni bart ID = [id number] for PAIG E, NAVDEEP MXXJ-[id number] 17:41:19 Test Item Value Reference Range Interpretation Comments POC-Hemoglobin (test code 12.2 g/dL 13.0-16.8 L : [facility] 1856[facility] 20 [facility], 770 30: Principal Network Architect/Techni bart ID = [id number] for RIA, NAVDEEP Lab Interpretation (test Abnormal code = 84819-5) [facility]-[id number] 17:41:19 Test Item Value Reference Range Interpretation Comments POC-Hematocrit (test code 36 % 40-50 L : = 1857) Principal Network Architect/Techni bart ID = [id number] for RIA, NAVDEEP Lab Interpretation (test Abnormal code = 41209-2) [facility]-[id number] 17:41:19 Test Item Value Reference Range Interpretation Comments POC-Hemoglobin (test code 12.2 g/dL 13.0-16.8 L : TESTED AT [facility] = 1856) [address] [place] [address], 770 30: Principal Network Architect/Techni bart ID = [id number] for RIA, NAVDEEP Lab Interpretation (test Abnormal code = 40537-1) [facility]-[id number] 17:41:19 Test Item Value Reference Range Interpretation Comments POC-Hematocrit (test code 36 % 40-50 L : = 1857) Principal Network Architect/Techni bart ID = [id number] for RIA, NAVDEEP Lab Interpretation (test Abnormal code = 39698-3) [facility]-[id number] 17:41:19 Test Item Value Reference Range Interpretation Comments POC-Hemoglobin (test code 12.2 g/dL 13.0-16.8 L : [facility] 1856[facility] [address] [place] [address], 770 30: Principal Network Architect/Techni bart ID = [id number] for RIA, NAVDEEP Lab Interpretation (test Abnormal code = 82611-4) [facility]-[id number] 17:41:19 Test Item Value Reference Range Interpretation Comments POC-Hematocrit (test code 36 % 40-50 L : = 1857) Principal Network Architect/Techni bart ID = [id number] for RIA, NAVDEEP Lab Interpretation (test Abnormal code = 87145-6) [facility]-[id number] 17:41:19 Test Item Value Reference Range Interpretation Comments POC-HEMOGLOBIN 12.2 g/dL 13.0-16.8 L : TESTED AT [place] [address] (BEAKER) (test code [facility], = 1856) [address]: Principal Network Architect/Techni bart ID = [id number] for MARIELYG E, NAVDEEP NPHK-[id number] 17:41:19 Test Item Value Reference Range Interpretation Comments POC-HEMATOCRIT 36 % 40-50 L : Principal Network Architect/Te chnician ID = (INESSA) (test code = 023873 for RIA, NAVDEEP 1857) CKV-[id number] 17:41:18 Test Item Value Reference Range Interpretation Comments POC-Potassium (test code 4.6 meq/L 3.6-5.5 : T ESTED AT [facility] = 1540) [address] [place] [address], 770 30: Principal Network Architect/Techni bart ID = [id number] for RIA, NAVDEEP Lab Interpretation (test Normal code = 87369-0) [facility]-Qanwkzmvv8052-00-18 17:41:18 Test Item Value Reference Range Interpretation Comments POC-Potassium (test code 4.6 meq/L 3.6-5.5 : T ESTED AT [facility] = 1540) [address] [place] [address], 770 [address]: Principal Network Architect/Techni bart ID = [id number] for RIA, NAVDEEP Lab Interpretation (test Normal code = 41495-3) [facility]-Qvejitrmj9546-06-20 17:41:18 Test Item Value Reference Range Interpretation Comments POC-Potassium (test code 4.6 meq/L 3.6-5.5 : T ESTED AT [facility] = 1540) [address] [place] [address], 7[address] 30: Principal Network Architect/Techni bart ID = [id number] for RIA, NAVDEEP Lab Interpretation (test Normal code = 25025-5) [facility]-[id number] 17:41:18 Test Item Value Reference Range Interpretation Comments POC-POTASSIUM 4.6 meq/L 3.6-5.5 : TESTED AT [facility] 67 (BEAKER) (test code [facility], = 1540) [address]: Principal Network Architect/Techni bart ID = [id number] for PAIG E, NAVDEEP ABO-[id number] 17:41:13 Test Item Value Reference Range Interpretation Comments POC-Sodium (test code = 133 meq/L 135-148 L : TE STED AT [facility] 1542) 6720 [facility], 770 30: Principal Network Architect/Techni bart ID = [id number] for RIA, NAVDEEP Lab Interpretation (test Abnormal code = 53736-4) [facility]-[id number] 17:41:13 Test Item Value Reference Range Interpretation Comments POC-Sodium (test code = 133 meq/L 135-148 L : TE STED AT [facility] 1542) 6720 [facility], 770 30: Principal Network Architect/Techni bart ID = [id number] for RIA, NAVDEEP Lab Interpretation (test Abnormal code = 53580-8) [facility]-[id number] 17:41:13 Test Item Value Reference Range Interpretation Comments POC-Sodium (test code = 133 meq/L 135-148 L : TE STED AT [facility] 1542) 6720 [facility], 770 30: Principal Network Architect/Techni bart ID = [id number] for RIA, NAVDEEP Lab Interpretation (test Abnormal code = 62564-0) [facility]-[id number] 17:41:13 Test Item Value Reference Range Interpretation Comments POC-SODIUM (BEAKER) 133 meq/L 135-148 L : TESTED AT [facility] 6720 (test code = 1542) [facility] [address] Principal Network Architect/Techni bart ID = [id number] for PAIG E, NAVDEEP POC-Blood gases, [id number] 17:41:12 Test Item Value Reference Range Interpretation [...] tomated message] code = 1838) The system Lol[employer] generated this result transmit dante reference range : 80.0 - 90.0 mm Hg. The reference r mayra was not used to interpret this result as normal/abnormal . SO2, Arterial-POC (test 92.0 % 96.0-97.0 L code = 1839) HCO3, Arterilal-POC 17.9 meq/L 21.0-29.0 L (test code = 1840) BE, Arterial-POC (test -7.0 meq/L -2.0-3.0 L : LAM DANTE AT [facility] code = 1841) [address] [place], [address]: Principal Network Architect/Techni bart ID = [id number] for NAVDEEP ROLLINS Lab Interpretation Abnormal (test code = 11134-6) [facility]-Blood gases, [id number] 17:41:12 Test Item Value Reference Range Interpretation [...] tomated message] code = 1838) The system [employer]ol[employer] generated this result transmit dante reference range : 80.0 - 90.0 mm Hg. The reference r mayra was not used to interpret this result as normal/abnormal . SO2, Arterial-POC (test 92.0 % 96.0-97.0 L code = 1839) HCO3, Arterilal-POC 17.9 meq/L 21.0-29.0 L (test code = 1840) BE, Arterial-POC (test -7.0 meq/L -2.0-3.0 L : LAM DANTE AT [facility] code = 1841) 6720 [facility], [address]: Principal Network Architect/Techni bart ID = [id number] for RIA, NAVDEEP Lab Interpretation Abnormal (test code = 92270-1) [facility]-Blood gases, dfhtykva3630-94-86 17:41:12 Test Item Value Reference Range Interpretation [...] tomated message] code = 1838) The system [employer]ol[employer] generated this result transmit dante reference range : 80.0 - 90.0 mm Hg. The reference r mayra was not used to interpret this result as normal/abnormal . SO2, Arterial-POC (test 92.0 % 96.0-97.0 L code = 1839) HCO3, Arterilal-POC 17.9 meq/L 21.0-29.0 L (test code = 1840) BE, Arterial-POC (test -7.0 meq/L -2.0-3.0 L : LAM DANTE AT [facility] code = 1841) 6720 [facility] [place], [address]: Principal Network Architect/Techni bart ID = [id number] for RIA, NAVDEEP Lab Interpretation Abnormal (test code = 89191-1) [facility]-BLOOD GASES, [id number] 17:41:12 Test Item Value Reference Range Interpretation [...] -7.0 meq/L -2.0-3.0 L : TESTED AT [facility] 6720 ARTERIAL-POC [facility], (BEAKER) (test code 14[address]: = 1841) Principal Network Architect/Techni bart ID = [id number] for PAIG E, NAVDEEP CT, CHEST, WITH [id number] 16:35:00Unlisted Reason for Exam - Click Yes and Enter Reason Below->YesUnlisted Reason for Exam->rapid 40 lb wt loss, concern for malignancy [facility] ISREAL : 1945 Sex: MFINAL REPORT TECHNIQUE: CT [...] pole renal stone is punctate. Signed: Nikhil oStelo MDReport Verified Date/Time: 09/02/2021 16:35:31 Reading Location: [address] Body Reading Room BASI METABOLIC [id number] 05:54:20 Test Item Value Reference Range Interpretation [...] S NOT APPLICABLE FOR DIALYSIS PATIEN TS. Principal Network Architect ID - SHANE GCBC W/PLT COUNT & AUTO [id number] 05:27:33 Test Item Value Reference Range Interpretation [...] 0-1 PERCENT (BEAKER) (test code = 2801) [id number] 18:20:35 Test Item Value Reference Range Interpretation Comments Ferritin (test code = 36.01 ng/mL 5.00-275.00 2276-4) EMERSON (test code = EMERSON) Principal Network Architect ID - PIAYA L Lab Interpretation (test Normal code = 06837-2) [facility] 18:20:35 Test Item Value Reference Range Interpretation Comments Ferritin (test code = 36.01 ng/mL 5.00-275.00 2276-4) EMERSON (test code = EMERSON) Principal Network Architect ID - PIAYA L Lab Interpretation (test Normal code = 43941-1) [facility] 18:20:35 Test Item Value Reference Range Interpretation Comments Ferritin (test code = 36.01 ng/mL 5.00-275.00 2276-4) EMERSON (test code = EMERSON) Principal Network Architect ID - PIAYA L Lab Interpretation (test Normal code = 28548-3) [facility] 18:20:35 Test Item Value Reference Range Interpretation Comments FERRITIN (BEAKER) (test code = 36.01 ng/mL 5.00-275.00 361) Principal Network Architect ID - KAYLEEN Ardon, TIBC, % sat. (without ferritin)2021-09-01 18:00:19 Test Item Value Reference Range Interpretation Comments Iron (test code = 2498-4) 14.0 ug/dL 40.0-160.0 L TIBC (test code = 2500-7) 355 ug/dL 250-450 Iron % Saturation (test 4 % 20-55 L code = 2502-3) EMERSON (test code = EMERSON) Principal Network Architect ID - KAYLEEN L Lab Interpretation (test Abnormal code = 54160-2) [facility], TIBC, % sat. (without ferritin)2021-09-01 18:00:19 Test Item Value Reference Range Interpretation Comments Iron (test code = 2498-4) 14.0 ug/dL 40.0-160.0 L TIBC (test code = 2500-7) 355 ug/dL 250-450 Iron % Saturation (test 4 % 20-55 L code = 2502-3) EMERSON (test code = EMERSON) Principal Network Architect ID - KAYLEEN L Lab Interpretation (test Abnormal code = 28896-7) [facility], TIBC, % sat. (without ferritin)2021-09-01 18:00:19 Test Item Value Reference Range Interpretation Comments Iron (test code = 2498-4) 14.0 ug/dL 40.0-160.0 L TIBC (test code = 2500-7) 355 ug/dL 250-450 Iron % Saturation (test 4 % 20-55 L code = 2502-3) EMERSON (test code = EMERSON) Principal Network Architect ID - KAYLEEN Sherrill Lab Interpretation (test Abnormal code = 22983-2) [facility], TIBC, % SAT. (WITHOUT FERRITIN)2021-09-01 18:00:19 Test Item Value Reference Range Interpretation Comments IRON (BEAKER) (test code = 547) 14.0 ug/dL 40.0-160.0 L TOTAL IRON BINDING CAPACITY 355 ug/dL 250-450 (BEAKER) (test code = 769) IRON % SATURATION (2) (BEAKER) 4 % 20-55 L (test code = 2590) Principal Network Architect ID - KAYLEEN L2D Echo W/Doppler(CW/PW/Color)2021-09-01 17:31:53Ejection FractionSLEH ECHO [facility]ART[facility] W/Doppler(CW/PW/Color)2021-09-01 17:31:53Ejection FractionSLEH ECHO HEARTLAB [facility] W/Doppler(CW/PW/Color) 2021-09-01 17:31:53[facility], WITH CINE OR [id number] 12:11:00Reason for exam:->TIMED BARIUIM SWALLOW at 1, 5 and 10 minutes with tablet for dysphagia w/ neg EGD [facility] : 1945 Sex: [...] [place] Verified Date/Time: 09/01/2021 12:11:08 Reading Location: [address] Ortho Consult Reading Room HEPATIC FUNCTION [id number] 07:23:40 Test Item Value Reference Range Interpretation [...] (test code = 45 U/L 6-55 347) Principal Network Architect ID - KAYLEEN [id number] 07:23:39 Test Item Value Reference Range Interpretation Comments MAGNESIUM (BEAKER) (test code = 2.3 mg/dL 1.6-2.6 627) Principal Network Architect ID - KAYLEEN [id number] 07:23:39 Test Item Value Reference Range Interpretation Comments PHOSPHORUS (BEAKER) (test code = 3.8 mg/dL 2.3-4.7 604) Principal Network Architect ID - KAYLEEN LBASIC METABOLIC [id number] 07:23:38 Test Item Value Reference Range Interpretation [...] S NOT APPLICABLE FOR DIALYSIS PATIEN TS. Principal Network Architect ID - KAYLEEN LTSH/Free T4 If Ishxcksdp4605-63-66 06:55:05 Test Item Value Reference Range Interpretation Comments TSH (test code = 1.112 See_Comment [Automated 82958-3) message] The system which generated this result transmit dante reference range : 0.350 - 4.940 uIU/mL. The reference range was not used to interpret this result as normal/abnormal . EMERSON (test code = EMERSON) Principal Network Architect ID - KAYLEEN L Lab Interpretation Normal (test code = 88443-2) [facility]/Free T4 If Xpgtiuqab8195-12-19 06:55:05 Test Item Value Reference Range Interpretation Comments TSH (test code = 1.112 See_Comment [Automated 04756-8) message] The system which generated this result transmit dante reference range : 0.350 - 4.940 uIU/mL. The reference range was not used to interpret this result as normal/abnormal . EMERSON (test code = EMERSON) Principal Network Architect ID - KAYLEEN L Lab Interpretation Normal (test code = 91803-8) [facility]/Free T4 If Bockkpmej2286-69-60 06:55:05 Test Item Value Reference Range Interpretation Comments TSH (test code = 1.112 See_Comment [Automated 07231-3) message] The system which generated this result transmit dante reference range : 0.350 - 4.940 uIU/mL. The reference range was not used to interpret this result as normal/abnormal . EMERSON (test code = EMERSON) Principal Network Architect ID - KAYLEEN L Lab Interpretation Normal (test code = 60000-1) [facility]/FREE T4 IF [id number] 06:55:05 Test Item Value Reference Range Interpretation Comments THYROID STIMULATING HORMONE 1.112 uIU/mL 0.350-4.940 (BEAKER) (test code = 772) Principal Network Architect ID - KAYLEEN LPROTHROMBIN TIME/[id number] 06:24:18 Test Item Value Reference Range Interpretation Comments PROTIME (BEAKER) 17.9 seconds 11.9-14.2 H (test code = 759) INR (BEAKER) (test 1.51 See_Comment [Automat ed message] code = 370) The system whic h generated this result transmitted ref erence range: <=5.90. The reference range was not used to int erpret this result as normal/abnormal . RECOMMENDED COUMADIN/WARFARIN INR THERAPY RANGESSTANDARD DOSE: 2.0 - 3.0 Includes: PROPHYLAXIS for venous thrombosis, systemic embolization; TREATMENT for venous thrombosis and/or pulmonary embolus.HIGH RISK: Target INR is 2.5-3.5 for patients with mechanical heart valves.CBC W/PLT COUNT & AUTO [id number] 06:22:43 Test Item Value Reference Range Interpretation [...] SARS-Co V-2 (test code = target nucleic 74879-2) acids are not detected in thi s [...] revoked sooner. Fact Sheet for Healthcare Providers: https://www.Yottaa/Documents/Xp ert%20Xpress%20SAR S%20CoV-2/Fact%20S heets/302-6212%20S ARS-COV-2%20HEALTH CARE%20PROVIDERS%2 0FACT%20SHEET.pdf Fact Sheet for Healthcare Patients: https://www.Yottaa/Documents/Xp ert%20Xpress%20SAR S%20CoV-2/Fact%20S heets/302-3801%20S ARS-COV-2%20PATIEN T%20FACT%20SHEET.p df Lab Interpretation Normal (test code = 01036-2) [facility]pt[facility] ONLY[facility]2021-08-31 15:45:18 Test Item Value Reference Interpretation Comments Range SARS-COV2/RT-PCR Negative Negative The SARS-Co V-2 (test code = target nucleic 63207-6) acids are not detected in thi s [...] revoked sooner. Fact Sheet for Healthcare Providers: https://www.Yottaa/Documents/Xp ert%20Xpress%20SAR S%20CoV-2/Fact%20S heets/302-3802%20S ARS-COV-2%20HEALTH CARE%20PROVIDERS%2 0FACT%20SHEET.pdf Fact Sheet for Healthcare Patients: https://www.Yottaa/Documents/Xp ert%20Xpress%20SAR S%20CoV-2/Fact%20S heets/302-3801%20S ARS-COV-2%20PATIEN T%20FACT%20SHEET.p df Lab Interpretation Normal (test code = 74035-9) [facility] (Symptomatic ONLY)2021-08-31 15:45:18 Test Item Value Reference Interpretation Comments Range SARS-COV2/RT-PCR Negative Negative The SARS-Co V-2 (test code = target nucleic 55958-5) acids are not detected in thi s [...] revoked sooner. Fact Sheet for Healthcare Providers: https://www.Yottaa/Documents/Xp ert%20Xpress%20SAR S%20CoV-2/Fact%20S heets/302-3802%20S ARS-COV-2%20HEALTH CARE%20PROVIDERS%2 0FACT%20SHEET.pdf Fact Sheet for Healthcare Patients: https://www.Yottaa/Documents/Xp ert%20Xpress%20SAR S%20CoV-2/Fact%20S heets/302-3801%20S ARS-COV-2%20PATIEN T%20FACT%20SHEET.p df Lab Interpretation Normal (test code = 99744-3) [facility])2021-08-31 15:45:18 Test Item Value Reference Range Interpretation Comments SARS-COV2/RT-PCR Negative Negative The SARS-Co V-2 target (test code = nucleic acids a re not 6277328) detected in thi s specimen. Negative result [...] revoked sooner. Fact Sheet for Healthcare Providers: https://www.OwnerListens m/Documents/Xpert%20Xpress%20SARS%20CoV-2/Fact%20Sheets/990-8569%31DUKT-HGR-0%20 HEALTHCARE%20PROVIDERS%20FACT%20SHEET.pdf Fact Sheet for Healthcare Patients: https://www.Ameristream/Documents/Xpert%20Xp ress%20SARS%20CoV-2/Fact%20Sheets/259-7871%15QJUB-NMC-3%20PATIENT%20FACT%20SHEET .pdfHIGH SENSITIVITY TROPONIN [id number] 13:23:34 Test Item Value Reference Range Interpretation Comments HIGH SENSITIVITY 10 pg/ml See_Comment [Automated message] TROPONIN I (test code = The system which 7172820) generated this result transmitted ref erence range: <=35. Th e reference range was not used to int erpret this result as normal/abnormal . Principal Network Architect ID - ADMINThe SMOKED MEAT PREPARER STAT High Sensitivity Troponin-I results should be used in conjunction with other diagnostic information such as ECG, clinical observations and information, and patientsymptoms to aid in the diagnosis of [place]. [id number] 13:16:30 Test Item Value Reference Range Interpretation Comments PARTIAL THROMBOPLASTIN TIME 41.6 seconds 22.5-36.0 H (BEAKER) (test code = 760) BASIC METABOLIC [id number] 13:16:09 Test Item Value Reference Range Interpretation [...] S NOT APPLICABLE FOR DIALYSIS PATIEN TS. Principal Network Architect ID - ADMINPROTHROMBIN TIME/[id number] 13:15:51 Test Item Value Reference Range Interpretation Comments PROTIME (BEAKER) 21.2 seconds 11.9-14.2 H (test code = 759) INR (BEAKER) (test 1.86 See_Comment [Automat ed message] code = 370) The system whic h generated this result transmitted ref erence range: <=5.90. The reference range was not used to int erpret this result as normal/abnormal . RECOMMENDED COUMADIN/WARFARIN INR THERAPY RANGESSTANDARD DOSE: 2.0 - 3.0 Includes: PROPHYLAXIS for venous thrombosis, systemic embolization; TREATMENT for venous thrombosis and/or pulmonary embolus.HIGH RISK: Target INR is 2.5-3.5 for patients with mechanical heart valves.LACTIC ACID, [id number] 13:12:46 Test Item Value Reference Range Interpretation Comments LACTATE BLOOD VENOUS (2) (BEAKER) 1.73 mmol/L 0.50-2.20 (test code = 2872) Principal Network Architect ID - ADMINCBC W/PLT COUNT & AUTO [id number] 12:54:05 Test Item Value Reference Range Interpretation [...] PERCENT (BEAKER) (test code = 2801) [place], [id number] 11:34:00Gastrografin studyReason for exam:->POST-OP PROBLEMpost endocscopy 1 month ago [facility] : 1945 Sex: [...] [place] Verified Date/Time: 07/04/2021 11:34:49 Reading Location: [address] Consult Reading Room BASIC METABOLIC [id number] 04:39:36 Test Item Value Reference Range Interpretation [...] S NOT APPLICABLE FOR DIALYSIS PATIEN TS. Principal Network Architect ID - MARZENA MSARS-COV2/RT-PCR ([facility])2021-07-03 17:50:45 Test Item Value Reference Range Interpretation Comments SARS-COV2/RT-PCR Negative Negative The SARS-Co V-2 target (test code = nucleic acids a re not 9874824) detected in thi s specimen. Negative result [...] revoked sooner. Fact Sheet for Healthcare Providers: https://www.OwnerListens m/Documents/Xpert%20Xpress%20SARS%20CoV-2/Fact%20Sheets/302-3802%66QBNP-ZNT-7%20 HEALTHCARE%20PROVIDERS%20FACT%20SHEET.pdf Fact Sheet for Healthcare Patients: https://www.Amer[employer]ream/Documents/Xpert%20Xp ress%20SARS%20CoV-2/Fact%20Sheets/302-3801%07IVJB-WWA-2%20PATIENT%20FACT%20SHEET .pdfD-dimer, zckyxpwfqgih3679-93-39 17:04:25 Test Item Value Reference Range Interpretation Comments D-Dimer, Quant (test <0.27 See_Comment [Autom ated code = 00464-4) message] The system which generated this result [...] range. Lab Interpretation Normal (test code = 03005-1) [facility] Center[facility]er, [id number] 17:04:25 Test Item Value Reference Range Interpretation Comments D-Dimer, Quant (test <0.27 See_Comment [Autom ated code = 20283-5) message] The system which generated this result [...] range. Lab Interpretation Normal (test code = 90422-3) [facility] CenterD-[id number] 17:04:25 Test Item Value Reference Range Interpretation [...] of thrombosis is within 95-100% range.BLOOD GAS, [id number] 16:22:57 Test Item Value Reference Range Interpretation [...] code = 1819) 21.0 RAD, CHEST, 2 [id number] 14:40:00Reason for exam:->CHEST PAIN since endoscopy a month agopost endocscopy 1 month [facility] 1945 Sex: MFINAL REPORT EXAM: Chest one view COMPARISON: May 15, 2021 CLINICAL HISTORY: Chest pain FINDINGS: Minimal blunting of bilateral posterior costophrenic sulci are noted which may represent small effusions. The cardiac size remains enlarged. There is no evidence of pulmonary consolidation or pneumothorax. The regional osseous structures are unremarkable. Signed: Romeo Ackerman Verified Date/Time: 07/03/2021 14:40:03 [id number] 14:12:25 Test Item Value Reference Range Interpretation Comments Lipase (test code = 3040-3) 22 U/L 8-78 EMERSON (test code = EMERSON) Principal Network Architect ID - DB Lab Interpretation (test Normal code = 12196-3) [facility] CenterLipase[facility]21-[facility] 14:12:25 Test Item Value Reference Range Interpretation Comments Lipase (test code = 3040-3) 22 U/L 8-78 EMERSON (test code = EMERSON) Principal Network Architect ID - DB Lab Interpretation (test Normal code = 71926-9) [facility] CenterLIPASE[facility]21-[facility] 14:12:25 Test Item Value Reference Range Interpretation Comments LIPASE (BEAKER) (test code = 749) 22 U/L 8-78 Principal Network Architect ID - DBCOMPREHENSIVE METABOLIC [id number] 14:12:24 Test Item Value Reference Range Interpretation [...] S NOT APPLICABLE FOR DIALYSIS PATIEN TS. Principal Network Architect ID - DBHIGH SENSITIVITY TROPONIN [id number] 14:10:43 Test Item Value Reference Range Interpretation Comments HIGH SENSITIVITY 7 pg/ml See_Comment [Automated message] TROPONIN I (test code = The system which [id number]) generated this result transmitted ref erence range: <=35. Th e reference range was not used to interpr et this result as normal/abnormal . Principal Network Architect ID - RMThe S[employer]ER STAT High Sensitivity Troponin-I results should be used in conjunctionwith other diagnostic information such as ECG, clinical observations and information, and patient symptoms to aid in the diagnosis of [place].B-TYPE NATRIURETIC FACTOR (BNP)2021-07-03 14:09:26 Test Item Value Reference Range Interpretation Comments B-TYPE NATRIURETIC PEPTIDE (BEAKER) 515 pg/mL 0-100 H (test code = 700) Principal Network Architect ID - RMCBC W/PLT COUNT & AUTO [id number] 13:39:07 Test Item Value Reference Range Interpretation [...] (BEAKER) (test code = 2801) HEMOGLOBIN AND [id number] 05:07:16 Test Item Value Reference Range Interpretation Comments HEMOGLOBIN (BEAKER) (test code = 7.9 GM/DL 13.7-17.5 L 410) HEMATOCRIT (BEAKER) (test code = 26.4 % 40.1-51.0 L 411) Principal Network Architect ID - [id number] AND QZLMWULFJV1019-78-01 18:44:57 Test Item Value Reference Range Interpretation Comments HEMOGLOBIN (BEAKER) (test code = 8.7 GM/DL 13.7-17.5 L 410) HEMATOCRIT (BEAKER) (test code = 29.7 % 40.1-51.0 L 411) Principal Network Architect ID - [id number] AND [id number] 11:29:37 Test Item Value Reference Range Interpretation Comments HEMOGLOBIN (BEAKER) (test code = 8.3 GM/DL 13.7-17.5 L 410) HEMATOCRIT (BEAKER) (test code = 28.5 % 40.1-51.0 L 411) Principal Network Architect ID - [id number] AND [id number] 04:51:37 Test Item Value Reference Range Interpretation Comments HEMOGLOBIN (BEAKER) (test code = 7.9 GM/DL 13.7-17.5 L 410) HEMATOCRIT (BEAKER) (test code = 26.9 % 40.1-51.0 L 411) Principal Network Architect ID - [id number] AND AVVOTAQHDZ8622-71-50 16:42:26 Test Item Value Reference Range Interpretation Comments HEMOGLOBIN (BEAKER) (test code = 8.6 GM/DL 13.7-17.5 L 410) HEMATOCRIT (BEAKER) (test code = 29.4 % 40.1-51.0 L 411) Principal Network Architect ID - 6000BASIC METABOLIC [id number] 09:04:40 Test Item Value Reference Range Interpretation [...] S NOT APPLICABLE FOR DIALYSIS PATIEN TS. Principal Network Architect ID - ROSIANGHEMOGLOBIN AND [id number] 08:41:52 Test Item Value Reference Range Interpretation Comments HEMOGLOBIN (BEAKER) (test code = 7.6 GM/DL 13.7-17.5 L 410) HEMATOCRIT (BEAKER) (test code = 26.5 % 40.1-51.0 L 411) Principal Network Architect ID - [id number]-COV2/RT-PCR ([facility])2021-05-23 19:59:55 Test Item Value Reference Range Interpretation Comments SARS-COV2/RT-PCR Negative Negative The SARS-Co V-2 target (test code = nucleic acids a re not 8188216) detected in thi s specimen. Negative result [...] revoked sooner. Fact Sheet for Healthcare Providers: https://www.OwnerListens m/Documents/Xpert%20Xpress%20SARS%20CoV-2/Fact%20Sheets/302-3802%70ANQF-FAO-6%20 HEALTHCARE%20PROVIDERS%20FACT%20SHEET.pdf Fact Sheet for Healthcare Patients: https://www.Ameristream/Documents/Xpert%20Xp ress%20SARS%20CoV-2/Fact%20Sheets/302-3801%70NYDI-BHE-5%20PATIENT%20FACT%20SHEET .pdfCOMPREHENSIVE METABOLIC [id number] 17:17:21 Test Item Value Reference Range Interpretation [...] S NOT APPLICABLE FOR DIALYSIS PATIEN TS. Principal Network Architect ID - LUDA [id number] 17:17:21 Test Item Value Reference Range Interpretation Comments LIPASE (BEAKER) (test code = 749) 31 U/L 8-78 Principal Network Architect ID - LUDA FPT/QEBA9551-76-03 16:55:15 Test Item Value Reference Range Interpretation [...] mechanical heart valves.CBC W/PLT COUNT & AUTO [id number] 16:37:06 Test Item Value Reference Range Interpretation [...] (BEAKER) (test code = 2801) BASIC METABOLIC [id number] 04:38:30 Test Item Value Reference Range Interpretation [...] S NOT APPLICABLE FOR DIALYSIS PATIEN TS. Principal Network Architect ID - DBCBC W/PLT COUNT & AUTO [id number] 04:21:40 Test Item Value Reference Range Interpretation [...] (BEAKER) (test code = 2801) BASIC METABOLIC [id number] 07:03:04 Test Item Value Reference Range Interpretation [...] 697) EGFR (BEAKER) (test 77 mL/min/1.73 ESTIMA DATNE GFR IS code = 1092) sq m NOT ACCURATE CREATININE CLEARANCE IN PREDICTING GLOMERULAR FILTRATION RATE . ESTIMATED GFR I S NOT APPLICABLE FOR DIALYSIS PATIEN TS. Principal Network Architect ID - PIAYA LCBC (HEMOGRAM ONLY)2021-05-17 04:38:47 [...] (BEAKER) (test code = 413) HEMOGLOBIN AND [id number] 20:18:40 Test Item Value Reference Range Interpretation Comments HEMOGLOBIN (BEAKER) (test code = 7.7 GM/DL 13.7-17.5 L 410) HEMATOCRIT (BEAKER) (test code = 25.7 % 40.1-51.0 L 411) Principal Network Architect ID - [id number] METABOLIC [id number] 06:32:43 Test Item Value Reference Range Interpretation [...] S NOT APPLICABLE FOR DIALYSIS PATIEN TS. Principal Network Architect ID - MARZENA MCBC W/PLT COUNT & AUTO [id number] 06:09:12 Test Item Value Reference Range Interpretation [...] (BEAKER) (test code = 2801) HEMOGLOBIN AND [id number] 00:13:44 Test Item Value Reference Range Interpretation Comments HEMOGLOBIN (BEAKER) (test code = 8.0 GM/DL 13.7-17.5 L 410) HEMATOCRIT (BEAKER) (test code = 28.1 % 40.1-51.0 L 411) Principal Network Architect ID - [id number]-COV2/RT-PCR ([facility])2021-05-15 18:07:21 Test Item Value Reference Range Interpretation Comments SARS-COV2/RT-PCR Negative Negative The SARS-Co V-2 target (test code = nucleic acids a re not 0634965) detected in thi s specimen. Negative result [...] revoked sooner. Fact Sheet for Healthcare Providers: https://www.Digigraph.me.[employer] m/Documents/Xpert%20Xpress%20SARS%20CoV-2/Fact%20Sheets/302-1073%02JSCC-UEL-1%20 HEALTHCARE%20PROVIDERS%20FACT%20SHEET.pdf Fact Sheet for Healthcare Patients: https://www.Ameristream/Documents/Xpert%20Xp ress%20SARS%20CoV-2/Fact%20Sheets/302-3801%10TTVO-XVJ-1%20PATIENT%20FACT%20SHEET .pdfHIGH SENSITIVITY TROPONIN [id number] 15:44:19 Test Item Value Reference Range Interpretation Comments HIGH SENSITIVITY 6 pg/ml See_Comment [Automated message] TROPONIN I (test code = The system which [id number]) generated this result transmitted ref erence range: <=35. Th e reference range was not used to interpr et this result as normal/abnormal . Principal Network Architect ID - DBThe [employer]ER STAT High Sensitivity Troponin-I results should be used in conjunctionwith other diagnostic information such as ECG, clinical observations and information, and patient symptoms to aid in the diagnosis of [place].[id number] 15:36:53 Test Item Value Reference Range Interpretation Comments MAGNESIUM (BEAKER) (test code = 2.1 mg/dL 1.6-2.6 627) Principal Network Architect ID - [id number] 15:36:53 Test Item Value Reference Range Interpretation Comments PHOSPHORUS (BEAKER) (test code = 3.3 mg/dL 2.3-4.7 604) Principal Network Architect ID - DBCOMPREHENSIVE METABOLIC [id number] 15:36:52 Test Item Value Reference Range Interpretation [...] S NOT APPLICABLE FOR DIALYSIS PATIEN TS. Principal Network Architect ID - DBCBC W/PLT COUNT & AUTO [id number] 15:12:30 Test Item Value Reference Range Interpretation [...] = 2801) RAD, CHEST, 1 VIEW, NON [id number] 13:55:00Reason for exam:->MELENAReason for exam:->GENERAL ILLNESSReason for exam:->GENERALIZED WEAKNESS, NOT ASSOCIATED WITH EXTREMITIESShould this be performed at the bedside?->Yes [facility] IS[facility]AL : 1945 Sex: MFINAL REPORT INDICATION: MELENAGENERAL ILLNESSGENERALIZED WEAKNESS, NOT ASSOCIATED WITH EXTREMITIES COMPARISON: 05/01/2021 TECHNIQUE: Single frontal view of the chest. FINDINGS: Lungs and pleura: Clear lungs. No effusion.Heart and mediastinum: Normal heart size. Unremarkable mediastinal contours.Osseous structures: No acute abnormality.Other: None. IMPRESSION: No acute intrathoracic abnormality. Signed: Gaby Cordero MDReport Verified Date/Time: 05/15/2021 13:55:04 Reading Location: [facility] Radiology Reading Room MAGNESIUM 2021-05-10 07:19:33 Test Item Value Reference Range Interpretation Comments MAGNESIUM (BEAKER) (test code = 2.4 mg/dL 1.6-2.6 627) Principal Network Architect ID - PIAYA LBASIC METABOLIC [id number] 07:19:32 Test Item Value Reference Range Interpretation [...] S NOT APPLICABLE FOR DIALYSIS PATIEN TS. Principal Network Architect ID - PIAYA LCBC W/PLT COUNT & AUTO [id number] 06:34:22 Test Item Value Reference Range Interpretation [...] (test code = 2801) UREA NITROGEN, RANDOM [id number] 17:46:02 Test Item Value Reference Range Interpretation Comments UREA NITROGEN URINE (BEAKER) (test 404 mg/dL code = 538) Reference Range: No NormalsOperator ID - BSSODIUM, RANDOM [id number] 17:46:01 Test Item Value Reference Range Interpretation Comments SODIUM URINE (BEAKER) (test code = 101 meq/L 243) Reference Range: No NormalsOperator ID - BSCREATININE, RANDOM [id number] 17:46:00 Test Item Value Reference Range Interpretation Comments CREATININE URINE (BEAKER) (test 61.7 mg/dL code = 375) Reference Range: No NormalsOperator ID - BSURINALYSIS WITH MICROSCOPIC IF [id number] 16:41:11 Test Item Value Reference Range Interpretation [...] = 463) SOURCE(BEAKER) (test code = 2795) Principal Network Architect ID - [auto]BLOOD [id number] 11:01:01 Test Item Value Reference Range Interpretation Comments CULTURE (BEAKER) (test No growth in 5 days code = 1095) BLOOD [id number] 11:01:01 Test Item Value Reference Range Interpretation Comments CULTURE (BEAKER) (test No growth in 5 days code = 1095) The specimen volume collected for this blood culture was below the optimum (10 mL per bottle or 20 mL total). Use of lower volumes may adversely affect recovery and/or detection times of some organisms.[id number] 05:38:27 Test Item Value Reference Range Interpretation Comments MAGNESIUM (BEAKER) (test code = 2.3 mg/dL 1.6-2.6 627) Principal Network Architect ID - PIAYA LBASIC METABOLIC [id number] 05:38:26 Test Item Value Reference Range Interpretation [...] S NOT APPLICABLE FOR DIALYSIS PATIEN TS. Principal Network Architect ID - PIAYA LPROTHROMBIN TIME/[id number] 05:23:25 Test Item Value Reference Range Interpretation Comments PROTIME (BEAKER) 16.9 seconds 11.9-14.2 H (test code = 759) INR (BEAKER) (test 1.39 See_Comment [Automat ed message] code = 370) The system [employer]ol[employer] generated this result transmitted ref erence range: <=5.90. The reference range was not used to int erpret this result as normal/abnormal . RECOMMENDED COUMADIN/WARFARIN INR THERAPY RANGESSTANDARD DOSE: 2.0 - 3.0 Includes: PROPHYLAXIS for venous thrombosis, systemic embolization; TREATMENT for venous thrombosis and/or pulmonary embolus.HIGH RISK: Target INR is 2.5-3.5 for patients with mechanical heart valves.CBC W/PLT COUNT & AUTO [id number] 05:22:39 Test Item Value Reference Range Interpretation [...] (BEAKER) (test code = 2801) COMPREHENSIVE METABOLIC [id number] 16:17:38 Test Item Value Reference Range Interpretation [...] S NOT APPLICABLE FOR DIALYSIS PATIEN TS. Principal Network Architect ID - DBSARS-COV2/RT-PCR ([facility])2021-05-08 12:32:16 Test Item Value Reference Range Interpretation Comments SARS-COV2/RT-PCR (test Negative Not Detected, Negative, code = 3187773) See external report for linked test SARS-COV-2 PERFORMING LAB [facility] (test code = 6410434) Negative result for this test determines that [...] of the Act.Fact Sheet for Healthcare Prov iders:https://www.Shaker/sites/default/files/product/documents/Fact_Sheet_HC _Hswimouek_Kkts_MOCO-AkJ-5.pdfFact Sheet for Healthcare Patients:https://www.Shaker/sites/default/files/product/docume nts/Dkte_Ogvuu_Xcwxohph_Cpcv_CKPS-MrB-7.pdfPerforming Laboratory:[address]st[address]j[place]Ev[place], [place] [address]JAT (HEMOGRAM ONLY) 2021-05-08 06:41:47 Test Item Value [...] code = 413) MYOCARD IMAGING, MULTI, PHARM, [id number] 13:41:00Unlisted Reason for Exam - Click Yes and Enter Reason Below->No [facility] : 1945 Sex: MFINAL REPORT PROCEDURE: Rest/Stress MYOCARDIAL PERFUSION SPECT with regadenoson\\XA9\\ CPT CODE: 36908 INDICATION: Chest pain PROTOCOL: 10.6 mCi of [...] 4. No prior study. Signed: Ishmael Collado [facility] SERVICESeport Verified Date/Time: 05/07/2021 13:41:19 CBC (HEMOGRAM ONLY) [...] (BEAKER) (test code = 413) BASIC METABOLIC [id number] 06:10:10 Test Item Value Reference Range Interpretation [...] S NOT APPLICABLE FOR DIALYSIS PATIEN TS. Principal Network Architect ID - SHANE GCBC (HEMOGRAM ONLY)2021-05-06 05:35:30 [...] 0-0 H (BEAKER) (test code = 413) [id number] 17:04:33 Test Item Value Reference Range Interpretation Comments PARTIAL THROMBOPLASTIN TIME 75.5 seconds 22.5-36.0 H (BEAKER) (test code = 760) [id number] 08:48:29 Test Item Value Reference Range Interpretation Comments PARTIAL THROMBOPLASTIN TIME 39.1 seconds 22.5-36.0 H (BEAKER) (test code = 760) [id number] 07:02:01 Test Item Value Reference Range Interpretation [...] (BEAKER) (test code = 413) BASIC METABOLIC [id number] 06:36:45 Test Item Value Reference Range Interpretation [...] S NOT APPLICABLE FOR DIALYSIS PATIEN TS. Principal Network Architect ID - SHANE [id number] 22:11:03 Test Item Value Reference Range Interpretation Comments PARTIAL THROMBOPLASTIN TIME 88.2 seconds 22.5-36.0 H (BEAKER) (test code = 760) PERIPHERAL BLOOD SMEAR - PATHOLOGIST [id number] 18:22:51 Test Item Value Reference Range Interpretation Comments PERIPHERAL SMR Microcytic hypochromic REVIEW (BEAKER) anemia with marked (test code = 3930) anisopoikilocytosis and polychromasia, consistent with history of LEESA. Leukocytosis with predominantly mature granulocytes. No blasts seen. Adequate platelets with unremarkable morphology. THQG-SNUGOMNOFGB-2 Andreina Schmidt, 112 (BEAKER) (test M.D code [...] (BEAKER) (test code 2+ moderate = 966) [id number] 12:13:05 Test Item Value Reference Range Interpretation Comments PARTIAL THROMBOPLASTIN TIME 55.6 seconds 22.5-36.0 H (BEAKER) (test code = 760) TISSUE [id number] 11:53:42Surgical Pathology Report Case: [id number] Authorizing Provider: Yolanda Lyle MD Collected: 05/03/2021 10:38 AM Ordering Location: [address] Received: 05/03/2021 02:25 PM Service Pathologist: Ciro Diamond MD Specimen: Polyp, Colon - Right/Ascending, x3 PART A RIGHT ASCENDING COLON POLYPX3, POLYPECTOMY:TUBULAR ADENOMA Signing Pathologist Direct Phone Line: [phone] signed by Ciro Diamond MD on 05/04/2021 at 11:53 [id number] colonReceived in formalin labeled the patient's name, accession number and "ascending colon polyp" are multiple chavez soft tissue fragments measuring up to 0.5 cm in greatest dimension which are filtered and submitted in toto in A1.URSULA Martell, HT (ASCP)performedBaylor Hollywood Community Hospital [facility], Department of Pathology, [address] [place] [address], LmvikfSanta Marta Hospital, Department of Pathology, [address] [place] [address], GkxgtuSanta Marta Hospital, Department of Pathology, [address] [place] [address], [id number] 11:13:03 Test Item Value Reference Range Interpretation Comments PARTIAL THROMBOPLASTIN TIME > seconds 22.5-36.0 HH (BEAKER) (test code = 760) URINALYSIS [id number] 10:30:34 Test Item Value Reference Range Interpretation Comments RBC UA (BEAKER) (test code = 519) 3 /HPF WBC UA (BEAKER) (test code = 520) 2 /HPF BACTERIA (BEAKER) (test code = None Seen 517) MUCUS (BEAKER) (test code = 1574) Moderate CRYSTALS, URINE (BEAKER) (test None Seen code = 1521) AMORPHOUS CRYSTALS (BEAKER) (test Occasional code = 1584) Principal Network Architect ID - techURINALYSIS WITH MICROSCOPIC IF [id number] 10:23:22 Test Item Value Reference Range Interpretation [...] = 463) SOURCE(BEAKER) (test code = 2795) Principal Network Architect ID - [auto]BASIC METABOLIC [id number] 06:55:55 Test Item Value Reference Range Interpretation [...] S NOT APPLICABLE FOR DIALYSIS PATIEN TS. Principal Network Architect ID - SHANE GCBC (HEMOGRAM ONLY)2021-05-04 06:35:01 [...] 0-0 (BEAKER) (test code = 413) BLOOD [id number] 18:01:00 Test Item Value Reference Range Interpretation Comments CULTURE (BEAKER) (test No growth in 5 days code = 1095) BLOOD [id number] 18:00:59 Test Item Value Reference Range Interpretation Comments CULTURE (BEAKER) (test No growth in 5 days code = 1095) TISSUE [id number] 17:23:09Surgical Pathology Report Case: [id number] Authorizing Provider: Yolanda Lyle MD Collected: 05/02/2021 03:08 PM Ordering Location: [address] Received: 05/03/2021 09:22 AM Service Pathologist: Ciro Diamond MD Specimens: A) - Duodenum, r/o celiac B) - Biopsy, Gastric C) -Biopsy, Gastric, fundus D) - Biopsy, Gastroesophageal Junction, [...] INVASIVE CARCINOMA. Signing Pathologist Direct Phone Line: [phone] signed by Ciro Diamond MD on 05/03/2021 at 5:23 [id number], [id number] iron deficiency anemiaA. Duode num tissue, rule [...] evaluated Immunohistochemistry technical testing was performed at [facility], Pathology Laboratory where itwas developed and its [...] qualified to perform high complexity clinical laboratory testing.[facility], Department of Pathology, [address] [place] [address], OtjynqSanta Marta Hospital, Department of Pathology, [address] [place] [address], Tel [phone] Marta Hospital, Department of Pathology, [address] [place] [address], THXRE METABOLIC PANEL 2021-05-03 06:21:43 Test Item Value [...] S NOT APPLICABLE FOR DIALYSIS PATIEN TS. Principal Network Architect ID - MARZENA MTSH/FREE T4 IF [id number] 05:55:30 Test Item Value Reference Range Interpretation Comments THYROID STIMULATING HORMONE 0.869 uIU/mL 0.350-4.940 (BEAKER) (test code = 772) Principal Network Architect ID - MARZENA MB-TYPE NATRIURETIC FACTOR (BNP)2021-05-03 05:32:14 Test Item Value Reference Range Interpretation Comments B-TYPE NATRIURETIC PEPTIDE (BEAKER) 452 pg/mL 0-100 H (test code = 700) Principal Network Architect ID - MARZENA MCBC (HEMOGRAM ONLY)2021-05-03 05:22:14 [...] CONCENTRATION Adequate (CELLAVISION)(BEAKER) (test code = 3438) Principal Network Architect ID - Luca Perry comments: Slide comments:CBC W/PLT COUNT & AUTO [id number] 11:59:17 Test Item Value Reference Range Interpretation [...] (BEAKER) (test code = 413) BASIC METABOLIC [id number] 09:20:42 Test Item Value Reference Range Interpretation [...] S NOT APPLICABLE FOR DIALYSIS PATIEN TS. Principal Network Architect ID - KEARA WPT/WGSC6285-51-85 09:05:40 Test Item Value Reference Range Interpretation [...] for patients with mechanical heart valves.SARS-COV2/RT-PCR ([facility]) 2021-05-01 12:34:25 Test Item Value Reference Range Interpretation Comments SARS-COV2/RT-PCR (test Negative Not Detected, Negative, code = 3768156) See external report for linked test SARS-COV-2 PERFORMING LAB [facility] SOLO (test code = 1079397) Negative result for this test determines that [...] of the Act.Fact Sheet for Healthcare Prov iders:https://www.Shaker/sites/default/files/product/documents/Fact_Sheet_HC _Cjwwwnuui_Wvev_JXKO-NbH-1.pdfFact Sheet for Healthcare Patients:https://www.Shaker/sites/default/files/product/docume nts/Wfnj_Splhu_Lsmhlzic_Mior_HOXS-BhA-8.pdfPerforming Laboratory:[facility], [place] [address]SVO, CHEST, 1 VIEW, NON [id number] 09:29:00Reason for exam:->shortness of breathShould this be performed at the bedside?->Yes [facility] 1945 Sex: MFINAL REPORT Chest AP portable History provided: Shortness of breath Heart size magnified by projection. Lungs are clear and vascularity normal. Signed: Reji Jefferseport Verified Date/Time: 05/01/2021 09:29:27 Reading Location: [facility] Radiology Reading Room CBC (HEMOGRAM ONLY)2021-05-01 06:54:20 [...] (BEAKER) (test code = 413) BASIC METABOLIC [id number] 06:24:43 Test Item Value Reference Range Interpretation [...] S NOT APPLICABLE FOR DIALYSIS PATIEN TS. Principal Network Architect ID - PIAYA LBASIC METABOLIC [id number] 15:17:17 Test Item Value Reference Range Interpretation [...] S NOT APPLICABLE FOR DIALYSIS PATIEN TS. Principal Network Architect ID - DBCBC W/PLT COUNT & AUTO [id number] 14:42:15 Test Item Value Reference Range Interpretation [...] (BEAKER) (test code = 2801) HEMOGLOBIN AND [id number] 14:41:31 Test Item Value Reference Range Interpretation Comments HEMOGLOBIN (BEAKER) (test code = 9.7 GM/DL 13.7-17.5 L 410) HEMATOCRIT (BEAKER) (test code = 33.4 % 40.1-51.0 L 411) Principal Network Architect ID - [id number], PMWCDYK2974-72-07 02:24:00Unlisted Reason for Exam - Click Yes and Enter Reason Below->NoWill this procedure require oral co ntrast?->NoDAMERON [facility]Name: [facility] : 1945 Sex: [...] nonobstructing left renal stone. Signed: Aman Todd [facility] SERVICESeport Verified Date/Time: 04/30/2021 02:24:34 HEMOGLOBIN [id number] 09:35:28 Test Item Value Reference Range Interpretation Comments HEMOGLOBIN A1C (BEAKER) (test code = 6.6 % 4.3-6.1 H 368) HEPATIC FUNCTION [id number] 05:59:52 Test Item Value Reference Range Interpretation [...] (test code = 38 U/L 6-55 347) Principal Network Architect ID - MARZENA [id number] 05:59:50 Test Item Value Reference Range Interpretation Comments MAGNESIUM (BEAKER) (test code = 2.9 mg/dL 1.6-2.6 H 627) Principal Network Architect ID - MARZENA MLIPID [id number] 05:59:50 Test Item Value Reference Range Interpretation [...] Borderline 130-159 High 160-189 Very High >=190 Principal Network Architect ID - MARZENA MBASIC METABOLIC [id number] 05:59:49 Test Item Value Reference Range Interpretation [...] S NOT APPLICABLE FOR DIALYSIS PATIEN TS. Principal Network Architect ID - MARZENA MB-TYPE NATRIURETIC FACTOR (BNP)2021-04-29 05:49:20 Test Item Value Reference Range Interpretation Comments B-TYPE NATRIURETIC PEPTIDE (BEAKER) 329 pg/mL 0-100 H (test code = 700) Principal Network Architect ID - [id number] [id number] 05:43:23 Test Item Value Reference Range Interpretation Comments PROTIME (BEAKER) 15.3 seconds 11.9-14.2 H (test code = 759) INR (BEAKER) (test 1.23 See_Comment [Automat ed message] code = 370) The system [employer] generated this result transmitted ref erence range: <=5.90. The reference range was not used to int erpret this result as normal/abnormal . RECOMMENDED COUMADIN/WARFARIN INR THERAPY RANGESSTANDARD DOSE: 2.0 - 3.0 Includes: PROPHYLAXIS for venous thrombosis, systemic embolization; TREATMENT for venous thrombosis and/or pulmonary embolus.HIGH RISK: Target INR is 2.5-3.5 for patients with mechanical heart valves.CBC W/PLT COUNT & AUTO [id number] 05:29:39 Test Item Value Reference Range Interpretation [...] (BEAKER) (test code = 2801) BASIC METABOLIC [id number] 20:29:00 Test Item Value Reference Range Interpretation [...] S NOT APPLICABLE FOR DIALYSIS PATIEN TS. Principal Network Architect ID - [id number] 16:56:00 Test Item Value Reference Range Interpretation Comments FERRITIN (BEAKER) (test code = 13.77 ng/mL 5.00-275.00 361) Principal Network Architect ID - DBHIGH SENSITIVITY TROPONIN [id number] 16:42:00 Test Item Value Reference Range Interpretation Comments HIGH SENSITIVITY 13 pg/ml See_Comment [Automated message] TROPONIN I (test code = The system which [id number]) generated this result transmitted ref erence range: <=35. Th e reference range was not used to int erpret this result as normal/abnormal . Principal Network Architect ID - DBThe SMOKED MEAT PREPARER STAT High Sensitivity Troponin-I results should be used in conjunctionwith other diagnostic information such as ECG, clinical observations and information, and patient symptoms to aid in the diagnosis of [place].HIGH SENSITIVITY TROPONIN [id number] 16:41:00 Test Item Value Reference Range Interpretation Comments HIGH SENSITIVITY 15 pg/ml See_Comment [Automated message] TROPONIN I (test code = The system which [id number]) generated this result transmitted ref erence range: <=35. Th e reference range was not used to int erpret this result as normal/abnormal . Principal Network Architect ID - DBThe S[employer]ER STAT High Sensitivity Troponin-I results should be [...] % 20-55 L (test code = 2590) Principal Network Architect ID - DBHEMOGLOBIN AND [id number] 15:56:00 Test Item Value Reference Range Interpretation Comments HEMOGLOBIN (BEAKER) (test code = 9.2 GM/DL 13.7-17.5 L 410) HEMATOCRIT (BEAKER) (test code = 30.6 % 40.1-51.0 L 411) Principal Network Architect ID - [id number] Notes Date/Time Note Provider Source 2021-09-07 19:53:22-00:[address] [facility] OPERATIVE/PROCEDURE REPORT [place] FACILITY: [facility] Billing #: [id number] Room: [place] [address] MR #: [id number] : 1945 DATE OF PROCEDURE: 09/07/2021 SURGEON: Colby Penny MD, PhD PREOPERATIVE DIAGNOSES: 1. Severe mitral regurgitation due to mixed etio logies with severe anterior leaflet prolapse as well as cont racted posterior leaflet. 2. Severely Dilated left ventricle with moderately decreased LV function (LVEF of 35%). 3. Persistent atrial fibrillation, on anticoagul ation. 4. History of GI bleeding, unable to tolerate an ticoagulation medication. 5. Recurrent worsening congestive heart failure, requiring multiple hospitalizations. 6. Hypertension. 7. Chronic obstructive pulmonary disease history with chronic smoker. 8. Anemia. 9. History of recent COVID. POSTOPERATIVE DIAGNOSES: 1. Severe mitral regurgitation due to mixed etio logies with severe anterior leaflet prolapse as well as cont racted posterior leaflet. 2. Severely Dilated left ventricle with moderately decreased LV function (LVEF of 35%). 3. Persistent atrial fibrillation, on anticoagul ation. 4. History of GI bleeding, unable to tolerate an ticoagulation medication. 5. Recurrent worsening congestive heart failure, requiring multiple hospitalizations. 6. Hypertension. 7. Chronic obstructive pulmonary disease history with chronic smoker. 8. Anemia. 9. History of recent COVID. SURGICAL PROCEDURES: 1. Robotic-assisted mitral valve replacement wit h 33 mm Epic porcine valve with chordee preserving technique. 2. Maze procedure using Atricure cryoprobe. 3. Robotic suture ligation of the left atrial ap pendage. 4. Placement of temporary pacing wire. 5. Right mini thoracotomy. 6. Establishment of cardiopulmonary bypass throu gh right femoral artery and right femoral vein cannulatio n through peripheral cardiopulmonary bypass. [employer]CHOOL COACH: Dr. Perez. ESTIMATED BLOOD LOSS: 800 mL. There was no blood transfusion in the OR. INDICATIONS FOR SURGERY: The patient is a 76-yea r-old gentleman, who had many comorbidities including persistent to chronic atrial fibrillation, severe mitral regurgitation, CHF requiring multiple hospitalizations due to worsening congestive heart failure, hypertension, recent COVID, COPD, and chronic anemia. The patient was unable to tolerate anticoagulation f or atrial fibrillation due to history of GI bleedin g. The patient was being admitted to the hospital multiple time s for symptoms of congestive heart failure. The patient also cardozo s severe dysphagia. The patient was readmitted to the [facility] again to the ICU due to symptoms of congestive heart fail ure. A transesophageal echocardiogram was performed, wh ich showed severe mitral regurgitation with complex mixed m itral valve pathology. The patient's left atrium was severel y enlarged and the left ventricle was also enlarged with decrea sed LV function. Due to these findings, we recommended the patient to undergo robotic-michaela dante mitral valve repair with possible replacement. In case mitral valve replacement was needed, the patient wanted to cardozo ve a tissue valve. We also planned to perform left atrium Ma ze procedure due to the patient's persistent atrial fibrillat ion and unable to tolerate anticoagulation. We'll also ligated the patient's left atrial appendage. The patient and the patie nt's family Understood the benefits and risks of surgery and gave consent for surgery. DESCRIPTION OF PROCEDURE: We brought the patient to the operating room. He was intubated. General anesth esia was given. A double-lumen endotracheal tube was plac ed. We deflated the patient's right lung. We prepped an d draped the patient's chest, abdomen, bilateral lower extrem ities. We first made a cutdown incision in the right groin to expose the right femoral artery and right femoral vein. We then made a 2-inch incision in the right chest at the 4th in tercostal space. We placed a soft retractor into the right pleural space. We inserted 3 robotic trocars around the right mini thoracotomy incision in a triangular shaped conf iguration. We inserted robotic instruments into the right pleu ral space. We gave heparin. We cannulated the right femoral artery with a 17-[place] arterial cannula. We cannulated the [facility] femoral vein with a 25-[place] multistage venous cannula, advanced venous cannula all the way to the superior vena cava. We initiated cardiopulmonary bypass and decompresse d the heart. We opened the pericardium longitudinally. We beti chidi an antegrade cardioplegic catheter directly into the proximal ascending aorta. We inserted a Melinda aortic cross-clamp to the distal ascending aorta and gave a dose of cardio plegia to arrest the heart. We then dissected the [place] chuck groove. We used a robotic scissors to make left atriotom y. We inserted a robotic left atrial retractor to expose the mitr al valve. We noted the left atrium was se verely enlarged. There was also fibrous deposits of thin fibrous tissue or thin clots over the left atrial wall. We used the suction device to gently suck out the fibrous deposits on the left atrial wall. We the n examined the mitral valve and noted the mitral valve had héctor re bileaflet disease with mixed pathologies. We noted the ant erior leaflet was thinned out and prolapsed with ruptured chordae. We noted the papillary muscle of the an terior leaflet chordae was scarred and appeared necrotic. The posterior delmis flet was thickened and tethering down. The mitral annulus was severely enlarged. Due to these findings and specificly because of the scarred a nd necrotic papillary muscle head, we felt the repair of the mitral leaflets, particularly with the anterior leaflet artificial chorde was not feasible. So t he best treatment for this patient was to perform the c hordae preserving mitral valve replacement. We then proceeded with the chordae preserving mitral valve replacement. We first performed the left-sided Maze procedure first. We brought in an Atricure cryoprobe device and appl ied the ablation lesion to the mitral isthmus from the right inferior pulmonary vein opening. We then applied the cryoprobe ablation to encircle the left pulmonary veins. We extende d the left pulmonary vein ablation line to the left atrial appendage. We then connected the left atrial appendage abl ation line to the right pulmonary vein ablation line to the mi tral isthmus lesion. After we completed the box ablation lesion on the 4 pulmonary veins, we completed the left Brian e procedure. We then used a pair of CV4 [place]Tomas sutu res to close the left atrial appendage from inside the left atrium in a continuous runn ing suture fashion in 2 layers. We then proceeded with iris l valve replacement. We resected prolapsed anterior leaflet, which was thickened and elongated. We resected part of the prolapsed elongated ruptured chordae. We preserved part of the anterior leaflet chordae and moved it to the lat eral mitral annulus. We preserved entire posterior mitral leafle t due to his contraction and preserved the posterior leaflet chordae. We measured the s ize of the mitral annulus and decided a 33 mm Epic porcine valve was a good fi t. We placed multiple interrupted mitral annular replacement sutures a cross mitral annulus. The sutures were pledgets. A total of 18 sutures were placed. We brought in 33 mm Epic porcine valve. We passed the sutures through the sewing cuff of the Epic porcine valve. We pushed the valve to sit d own to the mitral annulus. We used the Cor-Knots to tie the mitral annulus sut ures. We tested the valve opening and closure and the valve functioned properly. W e then closed the left atriotomy with two CV4 [place]omas sutures in 2 layers in continuous running suture fashion. We tied the suture. We placed a temporary pacing wire direct ly onto the patient's right ventricle. We tunneled the pacing wire out to the chest wall. We released the aortic cross-clamp. We all owed the heart to be reperfused. The patient's initial heart rate was very slow, so we used tempor bubba pacing wire to pace the heart at the rate of 80 beats per minute. We allowed adequate amount of time for the heart to recover and finally the heart resumed spontaneous contraction and had a heart rate asher passed in 80 beats per minute. We were able to wean the patie nt off the cardiopulmonary bypass with moderate amount of i notropic support. We performed a ROXI for mitral valve replacement. We noted good position and function of the mitral t issue valve. The gradient across mitral valve was only 3 mmHg. There was n o paravalvular leakage. The LV function was moderately decrease d. The RV function was preserved. We at this time removed the arterial and venous cannulas. The cannulation si lam were repaired with Prolene sutures. The protamine was given. Hemostasis was ensured. We placed a 32-[place] ch est tube in the right pleural space. We closed the intercost al space with 3 Ethibond sutures. The muscle, fascia, subcutan eous tissue, and skin were closed with Vicryl sutures. We then removed the arterial and venous cannula. We repaired the cannulation sites of the right femoral arter y and right femoral vein. Subcutaneous tissue and skin were closed with Vicryl sutures. The patient tolerated procedure well and was transferred to recovery room. SHAWNA/RICHA /[id number]
[2023-02-11 11:43] LABS: Absolute Lymphocytes (CBC) 2.6 K/uL (0.7-4.9); Hematocrit 41.5 % (39.6-49.0); Lymphocytes % 34.9 % (15.3-44.8); MPV 8.5 fL (7.6-11.3); RBC Red Blood Cell Count 4.82 M/uL (4.33-5.43)
[2023-02-11 11:47] LABS: Protime INR 2.6
[2023-02-11 12:00] LABS: Magnesium 2.4 mg/dL (1.6-2.4); Potassium 3.9 mEq/L (3.5-5.1); Troponin High Sensitivity 20.7 pg/mL (<58.9)
--- NOTE | 2023-02-11 12:00 | RAD REPORT ---
EXAM DESCRIPTION: [facility] Single View02/11/2023 11:45 am CLINICAL HISTORY: SOB COMPARISON: Chest Single View dated 06/10/2022; Chest Single View dated 03/10/2022; Chest Single View dated 08/23/2021; Chest Single View dated 07/25/2021 TECHNIQUE: Portable AP view of the chest. FINDINGS: The lungs are clear apart from bibasilar mild atelectatic changes. Essentially stable mercy nting of the costophrenic angles more so on the right which may relate to pleural thickening or trace effusions. No pneumothorax or sizable effusion. The cardiomediastinal contours are unremarkable. IMPRESSION: No acute cardiopulmonary process. Stable findings as above.
[2023-02-11 12:32] LABS: Anisocytosis 1+; Blood Morphology Comment NOTED (NOT SEEN); Platelet Estimate ADEQ; White Blood Cell Scan OK (OK)
--- NOTE | 2023-02-11 12:58 | RAD REPORT ---
EXAM DESCRIPTION: CT - Head Brain Wo Cont - 02/11/2023 12:47 pm CLINICAL HISTORY: Syncope COMPARISON: 2021 TECHNIQUE: Computed axial tomography of the head was obtained. IV contrast was not requested. All CT scans are performed using dose optimization technique as appropriate and may include automated exposure control or mA/KV adjustment according to patient size. FINDINGS: An intracranial bleed is not seen The ventricles are normal in caliber No significant hypodense areas within the brain visualized No extra-axial fluid collection is noted. Fluid within the sinuses/ mastoids is not seen IMPRESSION: No acute intracranial abnormality is seen If patient's symptoms persist MRI of the brain would be recommended
--- NOTE | 2023-02-11 13:36 | RAD REPORT ---
EXAM DESCRIPTION: CT - Chest For Pe Angio - 02/11/2023 1:22 pm CLINICAL HISTORY: sob COMPARISON: 2020 TECHNIQUE: Dynamically enhanced axial 3 mm thick images of the chest were obtained during administra tion of 100 mL Isovue 370 IV contrast. Coronal and oblique reconstruction images were generated and r eviewed. Exam utilizes a protocol for optimal evaluation of pulmonary arterial tree. Maximum intensity projections 3D imaging was utilized All CT scans are performed using dose optimization technique as appropriate and may include automated exposure control or mA/KV adjustment according to patient size. FINDINGS: A pulmonary embolus is not seen. A thoracic aortic aneurysm is not noted. A pleural effusion is not seen. A pericardial effusion is not seen. A lung consolidation is not present. Calcified granuloma right lung 2.5 centimeter right breast retroareolar lower soft tissue structure enlarged from prior exam IMPRESSION: Negative for a pulmonary embolism. 2.5 centimeter right breast retroareolar lower soft tissue structure probably gynecomastia. However, this should be correlated clinically. Further evaluation with a nonemergent diagnostic mammogram coul d be obtained
--- NOTE | 2023-02-11 13:56 | ER ---
Nurse's Notes [facility] Name: Oleg Giles Age: 77 yrs Sex: Male : 1945 Arrival Date: 02/11/2023 Time: 10:52 Bed 5 Private MD: Diagnosis: Dyspnea Presentation: 02/11 11:01 Chief complaint: Patient states: Feeling jittery, tired, short of breath and tingling nj1 on left arm for about 1-2 weeks ago, not getting better. Coronavirus screen: Vaccine status: Patient reports receiving the 2nd dose of the covid vaccine. Ebola Screen: Patient denies travel to an Ebola-affected area in the 21 days before illness onset. Initial Sepsis Screen: Does the patient meet any 2 criteria? No. Patient's initial sepsis screen is negative. Does the patient have a suspected source of infection? No. Patient's initial sepsis screen is negative. Risk Assessment: Do you want to hurt yourself or someone else? Patient reports no desire to harm self or others. Onset of symptoms was January 28, 2023. 11:01 Method Of Arrival: Ambulatory nj 11:01 Acuity: ALEXANDREA 3 nj1 Historical: - Allergies: 11:04 No Known Allergies; nj1 - PMHx: 11:04 Atrial fibrillation; Cerebrovascular accident; Congestive heart failure; Heart Murmur; nj1 Hypercholesterolemia; Hypertensive disorder; Pneumonia; - PSHx: 11:04 heart valve replacement: 08/2021; cataract repair; Cardiac Ablation; nj1 - Immunization history:: Client reports receiving the 2nd dose of the Covid vaccine. - Social history:: Smoking status: Patient denies any tobacco usage or history of. Screenin:30 [facility] ED Fall Risk Assessment (Adult) History of falling in the last 3 months, jl7 including since admission No falls in past 3 months (0 pts) Confusion or Disorientation No (0 pts) Intoxicated or Sedated No (0 pts) Impaired Gait No (0 pts) Mobility Assist Device Used No (0 pt) Altered Elimination No (0 pt) Score/Fall Risk Level 0 - 2 = Low Risk Oriented to surroundings, Maintained a safe environment. Abuse screen: Denies threats or abuse. Denies injuries from another. Nutritional screening: No deficits noted. Tuberculosis screening: No symptoms or risk factors identified. Assessment: 11:20 General: Appears in no apparent distress. uncomfortable, Behavior is calm, cooperative, jl7 appropriate for age. Pain: Denies pain. Neuro: Level of Consciousness is awake, alert, obeys commands, Oriented to person, place, time, situation. Cardiovascular: Rhythm is regular. Respiratory: Airway is patent Respiratory effort is even, unlabored, Respiratory pattern is regular, symmetrical. Derm: Skin is pink, warm \T\ dry. 12:30 Reassessment: Patient appears in no apparent distress at this time. No changes from jl7 previously documented assessment. Patient and/or family updated on plan of care and expected duration. Pain level reassessed. Patient is alert, oriented x 3, equal unlabored respirations, skin warm/dry/pink. 13:30 Reassessment: Patient appears in no apparent distress at this time. No changes from jl7 previously documented assessment. Patient and/or family updated on plan of care and expected duration. Pain level reassessed. Patient is alert, oriented x 3, equal unlabored respirations, skin warm/dry/pink. Vital Signs: 11:01 BP 173 / 77; Pulse 60; Resp 16; Temp 98.1(O); Pulse Ox 97% on R/A; Weight 89.36 kg; nj1 Height 5 ft. 5 in. ; Pain 0/10; 11:56 BP 147 / 58; Pulse 63; Resp 15; Pulse Ox 98% ; Pain 0/10; jl7 12:58 BP 141 / 69; Pulse 65; Resp 15; Pulse Ox 97% ; jl7 14:00 BP 151 / 63; Pulse 66; Resp 15; Pulse Ox 97% ; Pain 0/10; jl7 11:01 Body Mass Index 32.78 (89.36 kg, 165.1 cm) nj1 11:01 Pain Scale: Adult nj1 11:56 Pain Scale: Adult jl7 14:00 Pain Scale: Adult jl7 ED Course: 10:55 Patient arrived in ED. rg4 11:00 Zana Allen PA is PHCP. jmm 11:00 Augusto Cassidy MD is Attending Physician. jmm 11:04 Triage completed. nj1 11:05 Arm band placed on right wrist. nj1 11:10 Jet Franz RN is Primary Nurse. jl7 11:30 Patient has correct armband on for positive identification. Placed in gown. Bed in low jl7 position. Call light in reach. Side rails up X 1. Client placed on continuous cardiac and pulse oximetry monitoring. NIBP monitoring applied. Warm blanket given. 11:40 EKG done, by ED staff, reviewed by Augusto Cassidy MD. jl7 11:45 Initial lab(s) drawn, by va, sent to lab. Inserted saline lock: 20 gauge in right jl7 antecubital area, using aseptic technique. Blood collected. 11:45 COVID swab sent to lab. jl7 11:47 XRAY Chest (1 view) In Process Unspecified. EDMS 12:48 CT Head Brain wo Cont In Process Unspecified. EDMS 13:24 CT Chest For PE Angio In Process Unspecified. EDMS 14:20 No provider procedures requiring assistance completed. IV discontinued, intact, jl7 bleeding controlled, No redness/swelling at site. Pressure dressing applied. Administered Medications: No medications were administered Medication: 11:56 VIS not applicable for this client. jl7 Outcome: 13:55 Discharge ordered by . malgorzata 14:20 Discharged to home ambulatory. jl7 14:20 Condition: stable 14:20 Discharge instructions given to patient, family, Instructed on discharge instructions, follow up and referral plans. Demonstrated understanding of instructions, follow-up care. 14:22 Patient left the ED. jl7 Signatures: Dispatcher [employer] EDMS Zana Allen PA PA jmm Garcia, Rubi rg4 Jet Franz RN RN jl7 Jazmine Angel RN RN nj1
--- NOTE | 2023-02-11 13:56 | EDPHYS ---
Physician Documentation 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 - Social history:: Smoking status: Patient denies any tobacco usage or history of. Vital Signs: 11:01 BP 173 / 77; Pulse 60; Resp 16; Temp 98.1(O); Pulse Ox 97% on R/A; Weight 89.36 kg; nj1 Height 5 ft. 5 in. ; Pain 0/10; 11:56 BP 147 / 58; Pulse 63; Resp 15; Pulse Ox 98% ; Pain 0/10; jl7 12:58 BP 141 / 69; Pulse 65; Resp 15; Pulse Ox 97% ; jl7 14:00 BP 151 / 63; Pulse 66; Resp 15; Pulse Ox 97% ; Pain 0/10; jl7 11:01 Body Mass Index 32.78 (89.36 kg, 165.1 cm) [facility] 11:01 Pain Scale: Adult nj1 11:56 Pain Scale: Adult jl7 14:00 Pain Scale: Adult jl7 MDM: 11:13 Patient medically screened. [facility] 02/11 11:15 Order name: Basic Metabolic Panel; Complete Time: 12:02 [facility] 02/11 11:15 Order name: CBC with Diff; Complete Time: 12:35 [facility] 02/11 11:15 Order name: Magnesium; Complete Time: 12:02 [facility] 02/11 11:15 Order name: NT PRO-BNP; Complete Time: 12:02 [facility] 02/11 11:15 Order name: PT-INR; Complete Time: 11:55 [facility] 02/11 11:15 Order name: Troponin HS; Complete Time: 12:02 [facility] 02/11 11:15 Order name: SARS-COV-2 RT PCR; Complete Time: 12:14 [facility] 02/11 11:47 Order name: CBC Smear Scan; Complete Time: 12:35 [facility] 02/11 11:15 Order name: XRAY Chest (1 view); Complete Time: 12:02 [facility] 02/11 12:03 Order name: CT Head Brain wo Cont; Complete Time: 13:00 [facility] 02/11 13:06 Order name: CT Chest For PE Angio; Complete Time: 13:37 [facility] 02/11 11:15 Order name: EKG; Complete Time: 11:16 [facility] 02/11 11:15 Order name: Cardiac monitoring; Complete Time: 11:16 [facility] 02/11 11:15 Order name: EKG - Nurse/Tech; Complete Time: 11:16 [facility] 02/11 11:15 Order name: IV Saline Lock; Complete Time: 11:42 [facility] 02/11 11:15 Order name: Labs collected and sent; Complete Time: 11:42 [facility] 02/11 11:15 Order name: O2 Per Protocol; Complete Time: 11:16 [facility] 02/11 11:15 Order name: O2 Sat Monitoring; Complete Time: 11:16 [facility] Administered Medications: No medications were administered Disposition Summary: 02/11/23 13:55 Discharge Ordered Location: Home [facility] Condition: Stable [facility] Diagnosis - Dyspnea [facility] Followup: [facility] - With: Private Physician - When: 2 - 3 days - Reason: Recheck today's complaints, Continuance of care, Re-evaluation by your physician Discharge Instructions: - Discharge Summary Sheet [facility] - Shortness of Breath, Adult [facility] Forms: - Medication Reconciliation Form [facility] - Thank You Letter [facility] - Antibiotic Education [facility] - Prescription Opioid Use [facility] - [email or web address] [facility] Signatures: Dispatcher [employer] Zana Fraser PA PA jmm Jaco, Norma, RN RN nj1
[2023-02-11 14:36] VITALS: TEMP 98.1
[2023-02-11 14:56] VITALS: O2SAT 97
[2023-02-11 15:02] VITALS: BP 151/63
--- NOTE | 2023-02-12 20:40 | EKG ---
Test Date: 2023-02-11 Test Time: 11:16:36 Associate Professor Of Theology: WESTLEY MEASUREMENT RESULTS: Intervals: Rate: 69 FL: 188 QRSD: 122 QT: 440 QTc: 471 [place]: P: 34 FL: 188 QRS: -27 T: 137 INTERPRETIVE STATEMENTS: Sinus rhythm with frequent premature ventricular complexes Left ventricular hypertrophy with QRS widening and repolarization abnormality Abnormal ECG Compared to ECG 06/10/2022 14:40:41 Ventricular premature complex(es) now present Left-axis deviation no longer present Myocardial infarct finding no longer present Electronically Signed On 02-12-23 20:33:19 CDT by Jimmy Westbrook
== END 2023-02-11 14:22 | disposition home or self-care (01) ==
LOC: ER 10:52
DX: R06.00 Dyspnea, unspecified (principal); I10 Essential (primary) hypertension; I48.91 Unspecified atrial fibrillation; I50.9 Heart failure, unspecified; Z95.2 Presence of prosthetic heart valve; Z20.822 Contact with and (suspected) exposure to COVID-19
CPT/HCPCS: 85025; 80048; 36415; 83735; 85610; 84484; 83880; 87635; 70450; 71275; 71045; Q9967; 93005

== ENCOUNTER 2023-04-07 04:48 | Emergency (ER) | payer OTHER ==
--- OUTSIDE RECORDS SUMMARY | 2023-04-07 05:05 | XMS REPORT | Continuity of Care Document ---
:1945 Author Organization [facility] t Address [address] [place] [address] [address] [place] [address] Care Team Providers Name Role Phone No, Pcp [facility] Primary Care Physician Unavailable ALBA BELTRAN NATASHA Attending Clinician Unavailable [id number] Attending Clinician Unavailable RYLAN AJRAMILLO Attending Clinician Unavailable Jackelyn Hernandez Attending Clinician Unavailable Elle SEVILLA, Melisa Attending Clinician Mack JUAREZ, Gabino Whitaker Attending Clinician GABINO PARK Attending Clinician Unavailable Amilcar SHEFFIELD, Alexa Jim Attending Clinician [phone] Michael Cristina MD Attending Clinician Floyd SHEFFIELD, Edith Gamboa Attending Clinician Jing SHEFFIELD, Jerrell Dave Attending Clinician Alberto SHEFFIELD, Raz Rodriguez Attending Clinician Bartolo Saldivar MD Attending Clinician Juan Carlos SHEFFIELD, Gabion Attending Clinician GABINO ARNOLD Attending Clinician Unavailable Darrel Hidalgo MD Attending Clinician Ramya SHEFFIELD, Colby Fox Attending Clinician [phone] ELLIS CAMARILLO Attending Clinician Unavailable Maria Teresa SHEFFIELD, Meliza Singh Attending Clinician [phone] Yessica SHEFFIELD, Timmy Miranda Attending Clinician Larry Holbrook CRNA Attending Clinician Doris SHEFFIELD, Tacos Nicholas Attending Clinician Haseeb SHEFFIELD, Darlene Attending Clinician Yonas SHEFFIELD, Bernarda Estevez Attending Clinician DARLENE SPARKS Attending Clinician Unavailable Chery SHEFFIELD, Oneil Grace Attending Clinician James SHEFFIELD, Noa Alexander Attending Clinician [phone] NOA RAMIREZ Attending Clinician Unavailable Jacobo Steward MD Attending Clinician [phone] Bar Toledo MD Attending Clinician Raegan Rico MD Attending Clinician Dillon Tenorio MD Attending Clinician Joyce Boss CRNA Attending Clinician [phone] Robinson SHEFFIELD, Jimmy Ramirez Attending Clinician [phone] Katy Nath MD Attending Clinician Jaden Chan CRNA Attending Clinician Doctor Unassigned, Berry Attending Clinician Unavailable ALBA BELTRAN NATASHA Admitting Clinician Unavailable [id number] Admitting Clinician Unavailable RYLAN JARAMILLO Admitting Clinician Unavailable EDITH BARRIENTOS Admitting Clinician Unavailable BERNARDA BIRD Admitting Clinician Unavailable NOA RAMIREZ Admitting Clinician Unavailable BAR TOL[place]O Admitting Clinician Unavailable SARAH SCHAFFER Admitting Clinician Unavailable Katy Nath MD Admitting Clinician Payers Payer Name Policy Type Policy Number Effective Date Expiration Date S ource HUMM HUMM [id number] [facility] [id number] 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 1-18 [facility] athy athy 00:00: Medical [place] Paroxysmal Paroxysmal Disease Recurre [facility] atrial atrial nce [facility] fibrillati fibrillati 00:00: Me dical on on 00 [place] Severe Severe Disease Active [facility] mitral mitral 1-18 [facility] regurgitat regurgitat 00:00: Me dical ion ion 00 [place] Dehydratio Dehydratio Disease Active [facility] n 1[facility]13 [facility] 00:00: Medical 00 [place] Nausea and Nausea and Disease Active [facility] vomiting vomiting 1-13 [facility] 00:00: Medical [place] Esophageal Esophageal Disease Active 2020-[address] dysphagia dysphagia 1-15 [facility] 00:00: Medical 00 [place] Weakness Weakness Disease [facility] 00[facility] Medical [place] s/p s/p Disease Recurre [facility] Robotic Robotic nce 9-10 [facility] MVR/LAAL/M MVR/LAAL/M 00:00: Me dical AZE by Dr. TOM by Dr. Marko Penny (09/07/21) (09/07/21) GI bleed GI bleed Disease [facility]: Medical 00 [place] Cardiogeni Cardiogeni Disease Recurre [facility] c shock c shock dce [facility] Hypovolemi Hypovolemi Disease Recurre [facility] c shock c shock [facility] Acute Acute Disease Recurre [facility] pulmonary pulmonary dce [place] [facility] edema edema [facility] Hypervolem Hypervolem Disease Active [facility] ia, ia, [facility] unspecifie unspecifie Me dical d d [place] hypervolem hypervolem ia type ia type No known No known Disease Unive rs active active ity of problems problems [facility] Allergies, Adverse Reactions, Alerts Allergy Allergy Status Severity Reaction(s) Onset Inactive Treating Comm ents Source Name Type Date Date Clinician APIXABAN Allergy Active 2020-[address] [facility] Medical 00 Center ASPIRIN Allergy Active [facility] Medical 00 Center NO KNOWN Allergy Active [facility] Family History Family Member Diagnosis Comments Start Date Stop Date Source Natural father Heart disease [facility] Natural father Diabetes [facility] [place] [facility] Natural sister Diabetes [facility] Social History Social Habit Start Date Stop Date Quantity Comments Source History SDOH [facility] Alcohol Frequency Medical Center History SDOH [facility] Alcohol Std Drinks Medica l Center History SDOH [facility] Alcohol Binge Medical Manolo ter History of tobacco Current smoker [facility] use [facility] Alcohol intake 2021-10-04 2021-10-04 Ex-drinker [facility] [place] [facility] 00:[facility]:00 00:00:00 (finding) [facility] Tobacco use and 2021-05-03 2021-05-[address] [place] [facility] exposure 00:00:00 00:00:00 [facility] Tobacco Comment 2021-05-03 2021-05-03 quit [address] [facility] 00:00:00 00:00:00 [facility] Alcohol Comment 2021-05-03 2021-05-03 quit [address] [facility] 00:00:00 00:00:00 [facility] Sex Ass[birth year] [facility] 00:00:00 00:00:00 [facility] Smoking Status Start Date Stop Date Source Former smoker 2021-05-03 00:00:00 2021-05-03 00:00:00 [facility] Medications Ordered Filled Start Stop Current Ordering Indication Dosage Frequency Signature Comments Components Source Medication Medication Date Date Medication? Clinician (SIG) Name Name thiamine 2021- No 100mg QD Take 1 [facility] - 03-04 tablet [facility] tablet 00:00: 23:59 (100 mg Medical 00 :00 total) by Center mouth daily for 30 days. pantoprazol No 40mg QD Take [address] [facility] [facility] e 2- 03-04 tablet (40 [facility] (PROTONIX) 00:00: 23:59 mg total) M edical 40 MG 00 :00 by mouth Center tablet daily for 30 days. magnesium 2021-2021- No 400mg QD Take [address] [facility] [facility] oxide 2-09 21-04 tablet [facility] (MAG-OX) 00:00: 23:59 (400 mg [...] 40mg QD Take [address] [facility] e 2- 03-04 tablet (40 [facility] (PROTONIX) 00:00: 23:59 mg total) M edical 40 MG 00 :00 by mouth Center tablet daily for 30 days. magnesium 2021-2021- No 400mg QD Take [address] [facility] oxide 2-09 21-04 tablet [facility] (MAG-OX) 00:00: 23:59 (400 mg Medic al 400 mg 00 :00 total) by Center (241.3 mg mouth magnesium) daily for tablet 30 days. losartan 2021-2021- No 25mg QD Take [address] (COZAAR) 25 2- 03-04 tablet (25 L [facility]kes MG tablet 00:00: 23:59 mg total) Me dical 00 :00 by mouth Center daily for 30 days. digoxin 2021-0 2021- No 62.5ug QD Take 0.5 [facility] [...] QD Take [address] [facility] (COZAAR) 25 2- 03-04 tablet (25 L [facility]kes MG tablet 00:00: 23:59 mg total) Me dical 00 :00 by mouth Center daily for 30 days. digoxin 2022021- No 62.5ug QD Take 0.[address] [facility] [...] 15:53: 00:00 daily. Medical tablet 08 :00 [place] albuterol 2021- No 2.5mg Take 2.[address] (PROVENTIL) 09-19 mg by [facility] 2.5 mg/0.5 15:53: 00:00 nebulizati Medical mL Nebu 08 :00 on every 6 Center nebulizer (six) solution hours as needed for Wheezing. docusate 2021- No 100mg QD Take [address] sodium 09-19- mg by [facility] (COLACE) 15:53: 00:00 mouth Medical 100 MG 08 :00 daily. [place] capsule apixaban 2021- No 5mg Q.5D Take [address] (Eliquis) 5 09-19 by mouth 2 L ukes mg Tab 15:53: 00:00 (two) Medical tablet 08 :00 times Center daily. atorvastati 2021- No 20mg QD Take [address] [facility] n (LIPITOR) 09-19 by mouth [place] 20 MG 15:53: 00:00 daily. Medical tablet 08 :00 [place] albuterol 2021-2021- No 2.5mg Take 2.[address] (PROVENTIL) 09-19- mg by [facility] 2.5 mg/0.5 15:53: 00:00 [...] tablet 08 :00 times Center daily. atorvastati 2021- No 20mg QD Take 20 [...] tablet 08 :00 times Center daily. warfarin 2021-2021- No 5mg QD Take [address] (COUMADIN, 09-19-03 tablet (5 [place] JANTOVEN) 5 00:00: 23:59 mg total) Medical MG tablet 00 :00 by mouth Center every evening for 30 days. tamsulosin 2021-2021- No .4mg QD Take [address] [facility] (FLOMAX) 09-19 03-03 capsule [facility] 0.4 mg Cap 00:00: 23:59 [...] Center mouth nightly for 30 days. furosemide 40mg Take [address] [facility] (LASIX) 40 [...] mouth Center daily for 30 days. HYDROcodone No 1{tbl} Take [address] -acetaminop 09-19 tablet by [place] [facility] (NORCO 00:00: 23:59 mouth Medic al 5-325) 00 :00 every 6 Center 5-325 mg (six) per tablet hours as needed for Pain for up to 7 days. Max Daily Amount: 4 tablets HYDROcodone No 1{tbl} Take [address] [...] 7 days. Max Daily Amount: 4 tablets ondansetron 2020-08 Weakness 4mg Take [address] [facility] (ZOFRAN-ODT 0 1009 tablet (4 [place] [facility] ) 4 MG 00:00: 23:59 mg total) Medic al disintegrat 00 :00 by mouth Cent er ing tablet every 12 (twelve) hours as needed for Nausea for up to 7 days. ondansetron 2020-08 No Weakness 4mg Take [address] [facility] (ZOFRAN-ODT 05-20 tablet (4 [place] [facility] ) 4 MG 00:00: 00:00 mg total) Medic al disintegrat 00 :00 by mouth Cent er ing tablet every 12 (twelve) hours as needed for Nausea for up to 7 days. apixaban 2020-08- No 5mg Q.5D Take [address] (ELIQUIS) 5 0-01 12-30 tablet (5 [place] [facility] mg Tab 00:00: 23:59 mg total) Medic al tablet 00 :00 by mouth 2 Center (two) times daily for 90 days. apixaban 2020-08- No 5mg Q.5D Take [address] (ELIQUIS) 5 0- 12-30 tablet (5 [place] [facility] mg Tab 00:00: 23:59 mg total) Medic al tablet 00 :00 by mouth 2 Center (two) times daily for 90 days. apixaban 2020-08- No 5mg Q.5D Take [address] (ELIQUIS) 5 0- 12-30 tablet (5 [place] [facility] mg Tab 00:00: 23:59 mg total) Medic al tablet 00 :00 by mouth 2 Center (two) times daily for 90 days. polyethylen 17g Q.5D Take [address] [facility] e glycol 05-17 by mouth 2 Luke s (GLYCOLAX) 00:00: 23:59 (two) Medic al 17 gram 00 :00 times Center packet daily for 3 days. aspirin 81 2020- No 81mg QD Take [address] [facility] MG EC 05-11-22 tablet (81 [facility] tablet 00:00: 23:59 mg total) Medic al 00 :00 by mouth Center daily for 90 days. furosemide 2020- No 40mg QD Take [address] [facility] (LASIX) 40 05-11-22 tablet (40 [place] [facility] MG tablet 00:00: [...] by mouth Center daily for 90 days. apixaban 2020- No 5mg Q.5D Take 1 [...] Q.5D Take [address] [facility] [facility] sulfate 325 05-10- tablet [facility] (65 FE) MG 00:00: 23:59 [...] Q.5D Take [address] sulfate 325 05-10- tablet [facility] (65 FE) MG 00:00: 23:59 (325 mg Med ical tablet 00 :00 total) by Center mouth 2 (two) times daily for 90 days. metoprolol 2020- No 75mg Q.5D Take 1.[address] tartrate 05-10-21 tablets [facility] (LOPRESSOR) 00:00: 23:59 (75 mg Med ical 50 MG 00 :00 total) by Center tablet mouth 2 (two) times daily for 90 days. pantoprazol 0 2020- No 40mg Q.5D Take [address] [facility] e 05-10 12-21 tablet (40 [facility] (PROTONIX) 00:00: 23:59 mg total) M edical 40 MG 00 :00 by mouth 2 Center tablet (two) times daily for 90 days. atorvastati Yes 20mg Take 20 mg Univers n 20 mg 9-04 by mouth ity of tablet 14:02: at [place] 00 bedtime. Medical Branch clopidogrel Yes 75mg Take 75 mg Univers 75 mg 9-04 by mouth ity of tablet 14:02: daily. Medical Branch valsartan Yes 320mg Take 320 Uni vers 320 mg 9-04 mg by ity of tablet 14:02: mouth [place] 00 daily. Medical Branch atorvastati Yes 20mg Take 20 mg Univers n 20 mg 9-04 by mouth ity of tablet 14:02: at [place] 00 bedtime. Medical Branch clopidogrel Yes 75mg Take 75 mg Univers 75 mg 9-04 by mouth ity of tablet 14:02: daily. Medical Branch valsartan Yes 320mg Take 320 Uni vers 320 mg 9-04 mg by ity of tablet 14:02: mouth [place] 00 daily. Medical Branch atorvastati Yes 20mg Take 20 mg Univers n 20 mg 9-04 by mouth ity of tablet 14:02: at [place] 00 bedtime. Medical Branch clopidogrel Yes 75mg [...] Yes 25ug 25 mcg, Uni vers (SUBLIMAZE -04 Slow IV ity of (PF)) 13:19: Push, [...] dose, 04/22/19 at 0630, Routine, [facility] Pre-op Immunizations Ordered Immunization Filled Immunization Date Status Commen ts Source Name Name Pneumococcal 2021-07-[address] [facility] Conjugate (Prevnar) 00:00:00 [facility] Pneumococcal 2021-07-[address] [facility] Conjugate (Prevnar) 00:00:00 [facility] Pneumococcal 2021-07-[address] [facility] Conjugate (Prevnar) 00:00:00 [facility] Pneumococcal 2021-07-[address] [facility] Conjugate (Prevnar) 00:00:00 [facility] Influenza Four-QIV 2021-07-[address] [facility] PF 6+MO IM ([id number]) 00:00:00 [facility] Influenza Four-QIV 2021-07-[address] [facility] PF 6+MO IM ([id number]) 00:00:00 [facility] Influenza Four-QIV 2021-07-[address] [facility] PF 6+MO IM ([id number]) 00:00:00 [facility] Influenza Four-QIV 2021-07-[address] [facility] PF 6+MO IM ([id number]) 00:00:00 [facility] Pneumococcal 2021-05-[address] [facility] Conjugate (Prevnar) 00:00:00 [facility] Pneumococcal 2021-05-[address] [facility] Conjugate (Prevnar) 00:00:00 [facility] Pneumococcal 2021-05-[address] [facility] Conjugate (Prevnar) 00:00:00 [facility] Pneumococcal 2021-05-[address] [facility] Conjugate (Prevnar) 00:00:00 [facility] Vital Signs Vital Name Observation Time Observation Value Comments Source WEIGHT 2021-05-06 08:52:00 88.2 kg WEIGHT 2021-05-03 09:54:00 92.08 kg HEIGHT 2021-04-28 15:00:00 165.1 cm HEIGHT 2021-10-04 08:58:00 167.6 cm WEIGHT 2021-10-04 [...] 167.6 cm WEIGHT 2021-08-31 12:27:00 74.163 kg HEIGHT 2021-07-03 20:00:00 167.6 cm WEIGHT 2021-07-03 20:00:00 81.8 kg HEIGHT 2021-07-03 12:30:00 167.6 cm WEIGHT 2021-07-03 12:30:00 76.204 kg HEIGHT 2021-07-03 20:00:00 167.6 cm WEIGHT 2021-07-03 20:00:00 81.8 kg HEIGHT 2021-07-03 12:30:00 167.6 cm WEIGHT 2021-07-03 12:30:00 76.204 kg WEIGHT 2021-05-23 22:20:00 83.643 kg HEIGHT [...] 13:42:00 140 mm[Hg] Univer sity of pressure [place] [facility] Diastolic blood 2019-04-22 13:42:00 73 mm[Hg] Unive rsity of pressure [place] [facility] Heart rate 2019-04-22 13:42:00 56 /min [facility] [place] [facility] Respiratory rate 2019-04-22 13:42:00 16 /min [facility] ers[facility] [place] [facility] Oxygen saturation in 2019-04-22 13:42:00 99 /min [facility] of Arterial blood by [place] [facility] Pulse oximetry Branch Body temperature 2019-04-22 13:27:00 36.33 Lalita [facility] [place] [facility] Body height 2019-04-17 16:00:00 162.6 cm [facility] [place] [facility] Body weight 2019-04-17 16:00:00 91.173 kg [facility] [place] [facility] BMI 2019-04-17 16:00:00 34.50 kg/m2 [facility] [place] [facility] Systolic blood 2019-04-22 13:42:00 140 mm[Hg] Univer sity [facility] pressure [place] [facility] Diastolic blood 2019-04-22 13:42:00 73 mm[Hg] Unive rsity of pressure [place] [facility] Heart rate 2019-04-22 13:42:00 56 /min [facility] [place] [facility] Respiratory rate 2019-04-22 13:42:00 16 /min [facility] [place] [facility] Oxygen saturation in 2019-04-22 13:42:00 99 /min [facility] Arterial blood by [place] [facility] Pulse oximetry Branch Body temperature 2019-04-22 13:27:00 36.33 Lalita [facility] [place] [facility] Body height 2019-04-17 16:00:00 162.6 cm [facility] [place] [facility] Body weight 2019-04-17 16:00:00 91.173 kg [facility] [place] [facility] BMI 2019-04-17 16:00:00 34.50 kg/m2 [facility] [place] [facility] Systolic blood 2021-10-04 08:58:00 125 mm[Hg] [facility] Diastolic blood 2021-10-04 08:58:00 74 mm[Hg] [facility] Heart rate 2021-10-04 08:58:00 119 /min [facility] Respiratory rate 2021-10-04 08:58:00 16 /min [facility] Body height 2021-10-04 08:58:00 167.6 cm [facility] Body weight 2021-10-04 08:58:00 74.39 kg [facility] BMI 2021-10-04 08:58:00 26.47 kg/m2 [facility] Oxygen saturation in 2021-10-04 08:58:00 100 /min [facility] Arterial blood by Medical Ce nter Pulse oximetry Body temperature 2021-09-19 16:03:00 36.56 Lalita [facility] Procedures Procedure Date / Time Performing Source Performed Clinician PHOSPHORUS 2021-09-[address] [facility] 03:23:00 [facility] CALCIUM, IONIZED 2021-09-[address] [facility] 03:23:00 [facility] CBC W/PLT COUNT & AUTO 2021-09-[facility] DIFFERENTIAL 03:23:00 [facility] PROTHROMBIN TIME/INR 2021-09-[address] [facility] 03:23:00 [facility] MAGNESIUM 2021-09-[address] [facility] 03:23:00 [facility] BASIC METABOLIC PANEL 2021-09-[address] [facility] [place] [facility] 03:23:00 [facility] CBC W/PLT COUNT & AUTO 2021-09-[address] [facility] DIFFERENTIAL 03:23:00 [facility] XR CHEST 1 VIEW PORTABLE / BEDSIDE 2021-09-[address] [facility] 04:55:00 [facility] MAGNESIUM 2021-09-[address] [facility] 03:25:00 [facility] PHOSPHORUS 2021-09-[address] [facility] 03:25:00 [facility] CALCIUM, IONIZED 2021-09-[address] [facility] 03:25:00 [facility] CBC W/PLT COUNT & AUTO 2021-09-18 Serenio, Henry [facility] DIFFERENTIAL 03:25:00 [facility] PROTHROMBIN TIME/INR 2021-09-18 Serenio, Henry [facility] 03:25:00 [facility] BASIC METABOLIC PANEL 2021-09-18 Arnold, Gabino [facility] 03:25:00 [facility] COMPREHENSIVE METABOLIC PANEL 2021-09-18 Phong Norwood [facility] 03:25:00 [facility] CBC W/PLT COUNT & AUTO 2021-09-18 Serenio, Henry [facility] DIFFERENTIAL 03:25:00 [facility] POCT-GLUCOSE METER 2021-09-17 Juan Carlos Gabino [facility] 17:26:00 [facility] POCT-GLUCOSE METER 2021-09-17 Arnold, Gabino [facility] 12:28:00 [facility] POCT-GLUCOSE METER 2021-09-17 Juan Carlos Gabino [facility] 07:58:00 [facility] PHOSPHORUS 2021-09-17 Serenio, Henry [facility] 07:50:00 [facility] MAGNESIUM 2021-09-17 Serenio, Henry [facility] 07:50:00 [facility] CALCIUM, IONIZED 2021-09-17 Serenio, Henry [facility] 05:41:00 [facility] CBC W/PLT COUNT & AUTO 2021-09-17 Serenio, Henry [facility] DIFFERENTIAL 05:41:00 [facility] PROTHROMBIN TIME/INR 2021-09-17 Serenio, Henry [facility] 05:41:00 [facility] CBC W/PLT COUNT & AUTO 2021-09-17 Serenio, Henry [facility] DIFFERENTIAL 05:41:00 [facility] XR CHEST 1 VIEW PORTABLE / BEDSIDE 2021-09-[address] [facility] 04:47:00 [facility] POCT-GLUCOSE METER 2021-09-16 Juan Carlos Gabino [facility] 21:47:00 [facility] MAGNESIUM 2021-09-16 Serenio, Henry [facility] 17:37:00 [facility] POCT-GLUCOSE METER 2021-09-[address] [facility] 17:17:00 [facility] POCT-GLUCOSE METER 2021-09-16 Juan Carlos Gabino [facility] 12:41:00 [facility] POCT-GLUCOSE METER 2021-09-16 Juan Carlos Gabino [facility] 07:47:00 [facility] Center XR CHEST 1 VIEW PORTABLE / BEDSIDE 2021-09-16 Chris Blaine thorne [facility] 05:13:00 [facility] PROTHROMBIN TIME/INR 2021-09-16 Serenio, Henry [facility] 04:03:00 [facility] APTT 2021-09-16 Juan Carlos Gabino [facility] 04:03:00 [facility] BASIC METABOLIC PANEL 2021-09-[address] [facility] 04:03:00 [facility] CBC W/PLT COUNT & AUTO 2021-09-16 Serenio, Henry [facility] DIFFERENTIAL 04:03:00 [facility] MAGNESIUM 2021-09-16 Serenio, Henry [facility] 04:03:00 [facility] PHOSPHORUS 2021-09-16 Serenio, Henry [facility] 04:03:00 [facility] CALCIUM, IONIZED 2021-09-16 Serenio, Henry [facility] 04:03:00 [facility] CBC W/PLT COUNT & AUTO 2021-09-16 Serenio, Henry [facility] DIFFERENTIAL 04:03:00 [facility] POCT-GLUCOSE METER 2021-09-15 Juan Carlos Gabino [facility] 20:46:00 [facility] POCT-GLUCOSE METER 2021-09-15 Juan Carlos Gabino [facility] 17:08:00 [facility] POCT-GLUCOSE METER 2021-09-15 Juan Carlos Gabino [facility] 12:04:00 [facility] POCT-GLUCOSE METER 2021-09-15 Juan Carlos Gabino [facility] 07:15:00 [facility] XR CHEST 1 VIEW PORTABLE / BEDSIDE 2021-09-15 Serenio, Ralp h [facility] 04:42:00 [facility] CBC W/PLT COUNT & AUTO 2021-09-15 Serenio, Henry [facility] DIFFERENTIAL 03:54:00 [facility] HEPATIC FUNCTION PANEL 2021-09-15 Serenio, Henry [facility] 03:54:00 [facility] PHOSPHORUS 2021-09-15 Serenio, Henry [facility] 03:54:00 [facility] CALCIUM, IONIZED 2021-09-15 Serenio, Henry [facility] 03:54:00 [facility] CBC W/PLT COUNT & AUTO 2021-09-15 Serenio, Henry [facility] DIFFERENTIAL 03:54:00 [facility] MAGNESIUM 2021-09-15 Serenio, Henry [facility] 03:54:00 [facility] PROTHROMBIN TIME/INR 2021-09-15 Serenio, Henry [facility] 03:54:00 [facility] BASIC METABOLIC PANEL 2021-09-[address] [facility] 03:54:00 [facility] APTT 2021-09-[address] [facility] 03:54:00 [facility] ECG 12-LEAD 2021-09-15 Zully Lagunaan A [facility] 01:56:37 [facility] ECG 12-LEAD 2021-09-15 Unknown, Hl7 [facility] 01:56:37 [facility] ECG 12-LEAD 2021-09-15 Zully Lagunaan A [facility] 01:56:09 [facility] ECG 12-LEAD 2021-09-15 Unknown, Hl7 [facility] 01:56:09 [facility] ECG 12-LEAD 2021-09-[address] [facility] 01:55:34 [facility] ECG 12-LEAD 2021-09-15 Unknown, Hl7 [facility] 01:55:34 [facility] PREPARE LEUKO-REDUCED RBC 2021-09-[address] [facility] 23:55:00 [facility] POCT-GLUCOSE METER 2021-09-[address] [facility] 21:03:00 [facility] MAGNESIUM 2021-09-14 Serkaylah, Henry [facility] 20:55:00 [facility] BASIC METABOLIC PANEL 2021-09-[address] [facility] 09:06:00 [facility] POCT-GLUCOSE METER 2021-09-14 Alberto, Raz [facility] 07:23:00 [facility] CBC W/PLT COUNT & AUTO 2021-09-14 Serenio, Henry [facility] DIFFERENTIAL 04:56:00 [facility] HEPATIC FUNCTION PANEL 2021-09-14 Serenio, Henry [facility] 04:56:00 [facility] PHOSPHORUS 2021-09-14 Serenio, Henry [facility] 04:56:00 [facility] CALCIUM, IONIZED 2021-09-14 Serenio, Henry [facility] 04:56:00 [facility] CBC W/PLT COUNT & AUTO 2021-09-14 Serenio, Henry [facility] DIFFERENTIAL 04:56:00 [facility] BASIC METABOLIC PANEL 2021-09-14 Serenio, Henry [facility] 04:56:00 [facility] MAGNESIUM 2021-09-14 Serenio, Henry [facility] 04:56:00 [facility] APTT 2021-09-14 Serenio, Henry [facility] 04:56:00 [facility] PROTHROMBIN TIME/INR 2021-09-14 [facility]renio, Henry [facility] 04:56:00 [facility] XR CHEST 1 VIEW PORTABLE / BEDSIDE 2021-09-14 SerMarce [address] h [facility] 00:53:00 [facility] POCT-GLUCOSE METER 2021-09-13 Alberto, Raz [facility] 22:05:00 [facility] BASIC METABOLIC PANEL 2021-09-13 Serenio, Henry [facility] 17:17:00 [facility] MAGNESIUM 2021-09-13 Serenio, Henry [facility] 17:17:00 [facility] POCT-GLUCOSE METER 2021-09-[address] [facility] 17:16:00 [facility] ECG 12-LEAD 2021-09-13 Unknown, Hl7 [facility] 14:33:16 [facility] ECG 12-LEAD 2021-09-13 Unknown, Hl7 [facility] 13:30:46 [facility] ECG 12-LEAD 2021-09-13 Unknown, Hl7 [facility] 13:29:58 [facility] ECG 12-LEAD 2021-09-13 Nieves, Herve [facility] 13:29:37 [facility] ECG 12-LEAD 2021-09-13 Unknown, Hl7 [facility] 13:29:37 [facility] ECG 12-LEAD 2021-09-13 Unknown, Hl7 [facility] 13:29:07 [facility] ECG 12-LEAD 2021-09-13 Unknown, Hl7 [facility] 13:24:42 [facility] ECG 12-LEAD 2021-09-[address] [facility] 12:51:16 [facility] ECG 12-LEAD 2021-09-13 Unknown, Hl7 [facility] 12:51:16 [facility] ECG 12-LEAD 2021-09-13 Unknown, Hl7 [facility] 12:50:38 [facility] ECG 12-LEAD 2021-09-13 Unknown, Hl7 [facility] 12:46:16 [facility] POCT-GLUCOSE METER 2021-09-[address] [facility] 11:06:00 [facility] 2D ECHO W/ DOPPLER (CW/PW/COLOR) 2021-09-[address] [facility] 10:29:22 [facility] TRANSFUSE LEUKO-REDUCED RED BLOOD 2021-09-[address] [facility] CELLS 10:15:00 [facility] BASIC METABOLIC PANEL 2021-09-[address] [facility] 10:15:00 [facility] MAGNESIUM 2021-09-[address] [facility] 10:15:00 [facility] TYPE AND SCREEN, AUTOMATED 2021-09-13 Ezequiel Herveabdelrahman [facility] 08:41:00 [facility] POCT-GLUCOSE METER 2021-09-[address] [facility] 07:48:00 [facility] XR CHEST 1 VIEW PORTABLE / BEDSIDE 2021-09-13 Serenio, Jamaicajeremy manuel [facility] 02:03:00 [facility] CBC W/PLT COUNT & AUTO 2021-09-[address] [facility] DIFFER[facility] 01:50:00 [facility] HEPATIC FUNCTION PANEL 2021-09-[address] [facility] 01:50:00 [facility] PHOSPHORUS 2021-09-[address] [facility] 01:50:00 [facility] CALCIUM, IONIZED 2021-09-[address] [facility] 01:50:00 [facility] CBC W/PLT COUNT & AUTO 2021-09-[address] [facility] DIFFER[facility] 01:50:00 [facility] BASIC METABOLIC PANEL 2021-09-[address] [facility] 01:50:00 [facility] MAGNESIUM 2021-09-[address] [facility] 01:50:00 [facility] APTT 2021-09-[address] [facility] 01:50:00 [facility] BLOOD GAS, VENOUS 2021-09-[address] [facility] 01:50:00 [facility] PROTHROMBIN TIME/INR 2021-09-13 Dax, Moy [facility] 01:50:00 [facility] HC VENOUS DOPPLER EXT UNI 2021-09-[address] [facility] 22:09:00 [facility] POCT-GLUCOSE METER 2021-09-[address] [facility] 21:56:00 [facility] POCT-GLUCOSE METER 2021-09-12 Sagar-Joshua Raz [facility] 16:06:00 [facility] MAGNESIUM 2021-09-[address] [facility] 11:57:00 [facility] POTASSIUM 2021-09-[address] [facility] 11:57:00 [facility] PHOSPHORUS 2021-09-[address] [facility] 11:57:00 [facility] CALCIUM, IONIZED 2021-09-12 Zully Lagunamalena Bettencourt [facility] 11:57:00 [facility] POCT-GLUCOSE METER 2021-09-12 Alberto, Raz [facility] 11:18:00 [facility] POCT-GLUCOSE METER 2021-09-12 Alberto, Raz [facility] 07:50:00 [facility] ECG 12-LEAD 2021-09-12 Unknown, Hl7 [facility] 07:21:58 [facility] BLOOD GAS, ARTERIAL 2021-09-12 Serenio, Henry [facility] 03:21:00 [facility] CBC W/PLT COUNT & AUTO 2021-09-12 Serenio, Henry [facility] 03:20:00 [facility] BASIC METABOLIC PANEL 2021-09-12 Serenio, Henry [facility] 03:20:00 [facility] HEPATIC FUNCTION PANEL 2021-09-12 Serenio, Henry [facility] 03:20:00 [facility] MAGNESIUM 2021-09-12 Serenio, Henry [facility] 03:20:00 [facility] PHOSPHORUS 2021-09-12 Serenio, Herny [facility] 03:20:00 [facility] CALCIUM, IONIZED 2021-09-12 Serenio, Henry [facility] 03:20:00 [facility] CBC W/PLT COUNT & AUTO 2021-09-12 Serenio, Henry [facility] 03:20:00 [facility] PT/APTT 2021-09-12 Serenio, Henry [facility] 03:20:00 [facility] LACTIC ACID, ARTERIAL 2021-09-12 Serenio, Henry [facility] 03:20:00 [facility] XR CHEST 1 VIEW PORTABLE / BEDSIDE 2021-09-[address] [facility] 01:10:00 [facility] HC VENOUS DOPPLER EXT UNI 2021-09-[address] [facility] 23:31:00 [facility] BASIC METABOLIC PANEL 2021-09-11 Serenio, Henry [facility] 20:26:00 [facility] MAGNESIUM 2021-09-11 Serenio, Henry [facility] 20:26:00 [facility] HEMOGLOBIN AND HEMATOCRIT 2021-09-11 Serenio, Henry [facility] 20:26:00 [facility] POCT-GLUCOSE METER 2021-09-11 Alberto, Raz [facility] 20:25:00 [facility] POCT-GLUCOSE METER 2021-09-11 Alberto, Raz [facility] 16:07:00 [facility] BASIC METABOLIC PANEL 2021-09-11 Serenio, Henry [facility] 12:13:00 [facility] MAGNESIUM 2021-09-11 Serenio, Henry [facility] 12:13:00 [facility] OXYGEN SATURATION, MEASURED 2021-09-[address] [facility] 12:13:00 [facility] PHOSPHORUS 2021-09-11 Zully Lagunaan A [facility] 12:13:00 [facility] CALCIUM, IONIZED 2021-09-11 Luz Elena Kameron A [facility] 12:13:00 [facility] POCT-GLUCOSE METER 2021-09-11 Jing, Jerrell [facility] 11:00:00 [facility] POCT-GLUCOSE METER 2021-09-11 Jing, Jerrell [facility] 08:18:00 [facility] OXYGEN SATURATION, MEASURED 2021-09-11 Jing, Jerrell [facility] 06:13:00 [facility] CBC W/PLT COUNT & AUTO 2021-09-11 Serenio, Henry [facility] 03:45:00 [facility] BASIC METABOLIC PANEL 2021-09-11 Serenio, Henry [facility] 03:45:00 [facility] HEPATIC FUNCTION PANEL 2021-09-11 Serenio, Henry [facility] 03:45:00 [facility] MAGNESIUM 2021-09-11 Serenio, Henry [facility] 03:45:00 [facility] PHOSPHORUS 2021-09-11 Serenio, Henry [facility] 03:45:00 [facility] OXYGEN SATURATION, MEASURED 2021-09-11 Serenio, Henry [facility] 03:45:00 [facility] CALCIUM, IONIZED 2021-09-11 Serenio, Henry [facility] 03:45:00 [facility] CBC W/PLT COUNT & AUTO 2021-09-11 Serenio, Henry [facility] 03:45:00 [facility] PT/APTT 2021-09-11 Serenio, Henry [facility] 03:45:00 [facility] LACTIC ACID, ARTERIAL 2021-09-11 Serenio, Henry [facility] 03:45:00 [facility] BLOOD GAS, ARTERIAL 2021-09-11 Serenio, Henry [facility] 03:44:00 [facility] XR CHEST 1 VIEW PORTABLE / BEDSIDE 2021-09-11 Serenio, Marce h [facility] 00:33:00 [facility] BASIC METABOLIC PANEL 2021-09-10 Serenio, Henry [facility] 22:08:00 [facility] MAGNESIUM 2021-09-10 Serenio, Henry [facility] 22:08:00 [facility] HEMOGLOBIN AND HEMATOCRIT 2021-09-10 Serenio, Henry [facility] 22:08:00 [facility] POCT-GLUCOSE METER 2021-09-10 Jing, Jerrell [facility] 22:06:00 [facility] POCT-GLUCOSE METER 2021-09-10 Jing, Jerrell [facility] 16:49:00 [facility] OXYGEN SATURATION, MEASURED 2021-09-[address] [facility] 15:32:00 [facility] 2D ECHO W/ DOPPLER (CW/PW/COLOR) 2021-09-[address] [facility] 14:37:25 [facility] BASIC METABOLIC PANEL 2021-09-10 Serenio, Henry [facility] 12:58:00 [facility] MAGNESIUM 2021-09-10 Serenio, Henry [facility] 12:58:00 [facility] CALCIUM, IONIZED 2021-09-[address] [facility] 12:58:00 [facility] POCT-GLUCOSE METER 2021-09-[address] [facility] 11:14:00 [facility] ECG 12-LEAD 2021-09-[address] [facility] 10:42:11 [facility] ECG 12-LEAD 2021-09-10 Unknown, Hl7 [facility] 10:42:11 [facility] ECG 12-LEAD 2021-09-10 Unknown, Hl7 [facility] 10:41:54 [facility] POCT-GLUCOSE METER 2021-09-[address] [facility] 07:42:00 [facility] BLOOD GAS, ARTERIAL 2021-09-10 Serenio, Henry [facility] 04:31:00 [facility] CBC W/PLT COUNT & AUTO 2021-09-10 Serenio, Henry [facility] 04:28:00 [facility] BASIC METABOLIC PANEL 2021-09-10 Serenio, Henry [facility] 04:28:00 [facility] HEPATIC FUNCTION PANEL 2021-09-10 Serenio, Henry [facility] 04:28:00 [facility] MAGNESIUM 2021-09-10 Serenio, Henry [facility] 04:28:00 [facility] PHOSPHORUS 2021-09-10 Serenio, Henry [facility] 04:28:00 [facility] CALCIUM, IONIZED 2021-09-10 Serenio, Henry [facility] 04:28:00 [facility] CBC W/PLT COUNT & AUTO 2021-09-10 Serenio, Henry [facility] 04:28:00 [facility] PT/APTT 2021-09-10 Serenio, Henry [facility] 04:28:00 [facility] LACTIC ACID, ARTERIAL 2021-09-10 Serenio, Henry [facility] 04:28:00 [facility] OXYGEN SATURATION, MEASURED 2021-09-10 Serenio, Henry [facility] 04:27:00 [facility] XR CHEST 1 VIEW PORTABLE / BEDSIDE 2021-09-10 Serenio, Ralp h [facility] 01:45:00 [facility] PREPARE LEUKO-REDUCED RBC 2021-09-[address] [facility] 23:54:00 [facility] POCT-GLUCOSE METER 2021-09-09 Jing, Jerrell [facility] 22:06:00 [facility] BASIC METABOLIC PANEL 2021-09-09 Serenio, Henry [facility] 19:37:00 [facility] LACTIC ACID, ARTERIAL 2021-09-09 Serenio, Henry [facility] 19:37:00 [facility] MAGNESIUM 2021-09-09 Serenio, Henry [facility] 19:37:00 [facility] PHOSPHORUS 2021-09-09 Serenio, Henry [facility] 19:37:00 [facility] OXYGEN SATURATION, MEASURED 2021-09-09 Serenio, Henry [facility] 19:37:00 [facility] HEMOGLOBIN AND HEMATOCRIT 2021-09-09 Serenio, Henry [facility] 19:37:00 [facility] CALCIUM, IONIZED 2021-09-09 Serenio, Henry [facility] 19:37:00 [facility] OXYGEN SATURATION, MEASURED 2021-09-[address] [facility] 09:44:00 [facility] OXYGEN SATURATION, MEASURED 2021-09-[address] [facility] 05:07:00 [facility] ECG 12-LEAD 2021-09-09 Unknown, Hl7 [facility] 04:50:00 [facility] ECG 12-LEAD 2021-09-[address] [facility] 04:48:23 [facility] ECG 12-LEAD 2021-09-09 Unknown, Hl7 [facility] 04:48:23 [facility] ECG 12-LEAD 2021-09-09 Unknown, Hl7 [facility] 04:47:37 [facility] POCT-GLUCOSE METER 2021-09-09 Jing, Jerrell [facility] 02:53:00 [facility] COMPREHENSIVE METABOLIC PANEL 2021-09-09 Kameron Laguna [facility] 02:46:00 [facility] MAGNESIUM 2021-09-[address] [facility] 02:46:00 [facility] PHOSPHORUS 2021-09-[address] [facility] 02:46:00 [facility] CBC (HEMOGRAM ONLY) 2021-09-[address] [facility] 02:46:00 [facility] BLOOD GAS, ARTERIAL 2021-09-[address] [facility] 02:46:00 [facility] CALCIUM, IONIZED 2021-09-[address] [facility] 02:46:00 [facility] XR CHEST 1 VIEW PORTABLE / BEDSIDE 2021-09-[address] [facility] 00:53:00 [facility] PREPARE LEUKO-REDUCED RBC 2021-09-[address] [facility] 23:55:00 [facility] POCT-GLUCOSE METER 2021-09-08 Jing, Jerrell [facility] 21:03:00 [facility] POCT-GLUCOSE METER 2021-09-08 Jing, Jerrell [facility] 18:03:00 [facility] CBC W/PLT COUNT & AUTO 2021-09-[address] [facility] DIFFER[facility] 15:03:00 [facility] CALCIUM, IONIZED 2021-09-08 Zully Lagunaan A [facility] 15:03:00 [facility] POTASSIUM 2021-09-[address] [facility] 15:03:00 [facility] MAGNESIUM 2021-09-[address] [facility] 15:03:00 [facility] CBC W/PLT COUNT & AUTO 2021-09-[address] [facility] DIFFERENTIAL 15:03:00 [facility] POCT-GLUCOSE METER 2021-09-08 Jing, Jerrell [facility] 12:04:00 [facility] TRANSFUSE LEUKO-REDUCED RED BLOOD 2021-09-08 Sebastiánonyrajesh Gene [facility] CELLS 11:50:00 [facility] POCT-GLUCOSE METER 2021-09-08 Jing, Jerrell [facility] 10:20:00 [facility] HEMOGLOBIN AND HEMATOCRIT 2021-09-08 Hopkins, Cecile [facility] 10:18:00 [facility] 2D ECHO W/ DOPPLER (CW/PW/COLOR) 2021-09-[address] [facility] 09:30:34 [facility] OXYGEN SATURATION, MEASURED 2021-09-[address] [facility] 09:05:00 [facility] POCT-GLUCOSE METER 2021-09-08 Jing, Jerrell [facility] 09:00:00 [facility] LACTIC ACID, ARTERIAL 2021-09-08 Owatonna, Uselyn [facility] 08:58:00 [facility] BLOOD GAS, ARTERIAL 2021-09-[address] [facility] 08:58:00 [facility] POCT-GLUCOSE METER 2021-09-08 Jing, Jerrell [facility] 08:09:00 [facility] POCT-GLUCOSE METER 2021-09-08 Jing, Jerrell [facility] 06:03:00 [facility] LACTIC ACID, ARTERIAL 2021-09-08 Owatonna, Uselyn [facility] 05:53:00 [facility] RRL CRITICAL LABS 2021-09-08 Owatonna, Uselyn [facility] (ABG,NA,K,H&H,GLUCOSE) 05:53:00 [facility] enter BLOOD GAS, ARTERIAL 2021-09-08 Delmi, Uselyn [facility] 05:53:00 [facility] SODIUM NA-STAT LAB 2021-09-[address] [facility] 05:53:00 [facility] POTASSIUM-STAT LAB 2021-09-08 Owatonna, Uselyn [facility] 05:53:00 [facility] GLUCOSE-STAT LAB 2021-09-[address] [facility] 05:53:00 [facility] HGB/HCT (H&H) - STAT LAB 2021-09-08 Owatonna, Uselyn [facility] 05:53:00 [facility] POCT-GLUCOSE METER 2021-09-08 Jing, Jerrell [facility] 05:03:00 [facility] POCT-GLUCOSE METER 2021-09-08 Jing, Jerrell [facility] 04:15:00 [facility] OXYGEN SATURATION, MEASURED 2021-09-08 Owatonna, Uselyn [facility] 04:03:00 [facility] BLOOD GAS, ARTERIAL 2021-09-08 Owatonna, Uselyn [facility] 04:02:00 [facility] RRL CRITICAL LABS 2021-09-08 Owatonna, Uselyn [facility] (ABG,NA,K,H&H,GLUCOSE) 04:02:00 [facility] enter SODIUM NA-STAT LAB 2021-09-08 Owatonna, Uselyn [facility] 04:02:00 [facility] POTASSIUM-STAT LAB 2021-09-08 Owatonna, Uselyn [facility] 04:02:00 [facility] GLUCOSE-STAT LAB 2021-09-08 Owatonna, Uselyn [facility] 04:02:00 [facility] HGB/HCT (H&H) - STAT LAB 2021-09-[address] [facility] 04:02:00 [facility] POCT-GLUCOSE METER 2021-09-08 Jing, Jerrell [facility] 02:59:00 [facility] CBC W/PLT COUNT & AUTO 2021-09-[address] [facility] DIFFERENTIAL 02:31:00 [facility] CBC W/PLT COUNT & AUTO 2021-09-08 [facility] DI[facility] 02:31:00 [facility] COMPREHENSIVE METABOLIC PANEL 2021-09-08 K[address] [facility] 02:31:00 [facility] MAGNESIUM 2021-09-[address] [facility] 02:31:00 [facility] PHOSPHORUS 2021-09-[address] [facility] 02:31:00 [facility] CALCIUM, IONIZED 2021-09-08 Owatonna, Uselyn [facility] 02:31:00 [facility] LACTIC ACID, ARTERIAL 2021-09-08 Owatonna, Uselyn [facility] 02:30:00 [facility] RRL CRITICAL LABS 2021-09-08 Owatonna, Uselyn [facility] (ABG,NA,K,H&H,GLUCOSE) 02:30:00 [facility] enter BLOOD GAS, ARTERIAL 2021-09-08 Owatonna, Uselyn [facility] 02:30:00 [facility] SODIUM NA-STAT LAB 2021-09-08 Owatonna, Uselyn [facility] 02:30:00 [facility] POTASSIUM-STAT LAB 2021-09-08 Owatonna, Uselyn [facility] 02:30:00 [facility] GLUCOSE-STAT LAB 2021-09-08 Owatonna, Uselyn [facility] 02:30:00 [facility] HGB/HCT (H&H) - STAT LAB 2021-09-08 Owatonna, Uselyn [facility] 02:30:00 [facility] POCT-GLUCOSE METER 2021-09-08 Jing, Jerrell [facility] 02:11:00 [facility] POCT-GLUCOSE METER 2021-09-08 Jing, Jerrell [facility] 01:00:00 [facility] OXYGEN SATURATION, MEASURED 2021-09-08 Owatonna, Uselyn [facility] 00:55:00 [facility] XR CHEST 1 VIEW PORTABLE / BEDSIDE 2021-09-08 Blaine Perez haarcelia [facility] 00:43:00 [facility] POCT-GLUCOSE METER 2021-09-07 Jing, Jerrell [facility] 23:59:00 [facility] RRL CRITICAL LABS 2021-09-07 Owatonna, Uselyn [facility] (ABG,NA,K,H&H,GLUCOSE) 23:54:00 [facility] enter BLOOD GAS, ARTERIAL 2021-09-07 Owatonna, Uselyn [facility] 23:54:00 [facility] SODIUM NA-STAT LAB 2021-09-07 Owatonna, Uselyn [facility] 23:54:00 [facility] POTASSIUM-STAT LAB 2021-09-07 Owatonna, Uselyn [facility] 23:54:00 [facility] GLUCOSE-STAT LAB 2021-09-07 Owatonna, Uselyn [facility] 23:54:00 [facility] HGB/HCT (H&H) - STAT LAB 2021-09-07 Owatonna, Uselyn [facility] 23:54:00 [facility] POCT-GLUCOSE METER 2021-09-07 Jing, Jerrell [facility] 23:04:00 [facility] POCT-GLUCOSE METER 2021-09-07 Jing, Jerrell [facility] 22:03:00 [facility] APTT 2021-09-07 Zully Lagunaan A [facility] 21:58:00 [facility] LACTIC ACID, ARTERIAL 2021-09-07 [place]watonna, Uselyn [facility] 21:58:00 [facility] RRL CRITICAL LABS 2021-09-07 Owatonna, Uselyn [facility] (ABG,NA,K,H&H,GLUCOSE) 21:57:00 [facility] enter BLOOD GAS, ARTERIAL 2021-09-07 Owatonna, Uselyn [facility] 21:57:00 [facility] SODIUM NA-STAT LAB 2021-09-07 Owatonna, Uselyn [facility] 21:57:00 [facility] POTASSIUM-STAT LAB 2021-09-07 Owatonna, Uselyn [facility] 21:57:00 [facility] GLUCOSE-STAT LAB 2021-09-07 Owatonna, Uselyn [facility] 21:57:00 [facility] HGB/HCT (H&H) - STAT LAB 2021-09-07 Owatonna, Uselyn [facility] 21:57:00 [facility] POCT-GLUCOSE METER 2021-09-07 Jing, Jerrell [facility] 20:34:00 [facility] BASIC METABOLIC PANEL 2021-09-07 Owatonna, Uselyn [facility] 20:27:00 [facility] RRL CRITICAL LABS 2021-09-07 Owatonna, Uselyn [facility] (ABG,NA,K,H&H,GLUCOSE) 20:27:00 [facility] enter BLOOD GAS, ARTERIAL 2021-09-07 Owatonna, Uselyn [facility] 20:27:00 [facility] SODIUM NA-STAT LAB 2021-09-07 Owatonna, Uselyn [facility] 20:27:00 [facility] POTASSIUM-STAT LAB 2021-09-[address] [facility] 20:27:00 [facility] GLUCOSE-STAT LAB 2021-09-[address] [facility] 20:27:00 [facility] HGB/HCT (H&H) - STAT LAB 2021-09-[address] [facility] 20:27:00 [facility] OXYGEN SATURATION, MEASURED 2021-09-[address] [facility] 19:02:00 [facility] BLOOD GAS, ARTERIAL 2021-09-[address] [facility] 18:48:00 [facility] LACTIC ACID, ARTERIAL 2021-09-[address] [facility] 18:48:00 [facility] CBC (HEMOGRAM ONLY) 2021-09-07 [place] Att[address]Nandini [facility] 18:48:00 [facility] ECG 12-LEAD 2021-09-07 Kodakandla, [facility] 18:45:09 [facility] ECG 12-LEAD 2021-09-07 Unknown, Hl7 [facility] 18:45:09 [facility] POCT-GLUCOSE METER 2021-09-07 Jing, Jerrell [facility] 18:17:00 [facility] LACTIC ACID, ARTERIAL 2021-09-07 Otuonyrajesh, Gene [facility] 17:07:00 [facility] RRL CRITICAL LABS 2021-09-[address] [facility] (ABG,NA,K,H&H,GLUCOSE) 17:07:00 [facility] enter BLOOD GAS, ARTERIAL 2021-09-[address] [facility] 17:07:00 [facility] SODIUM NA-STAT LAB 2021-09-[address] [facility] 17:07:00 [facility] POTASSIUM-STAT LAB 2021-09-[address] [facility] 17:07:00 [facility] GLUCOSE-STAT LAB 2021-09-[address] [facility] 17:07:00 [facility] HGB/HCT (H&H) - STAT LAB 2021-09-[address] [facility] 17:07:00 [facility] TRANSFUSE LEUKO-REDUCED RED BLOOD 2021-09-[address] [facility] CELLS 16:52:00 [facility] XR CHEST 1 VIEW PORTABLE / BEDSIDE 2021-09-[address] [facility] 15:16:00 [facility] CBC W/PLT COUNT & AUTO 2021-09-[address] [facility] DIFFERENTIAL 15:15:00 [facility] BASIC METABOLIC PANEL 2021-09-[address] [facility] 15:15:00 [facility] MAGNESIUM 2021-09-[address] [facility] 15:15:00 [facility] BLOOD GAS, ARTERIAL 2021-09-[address] [facility] 15:15:00 [facility] CBC W/PLT COUNT & AUTO 2021-09-[address] [facility] DIFFERENTIAL 15:15:00 [facility] PROTHROMBIN TIME/INR 2021-09-[address] [facility] 15:15:00 [facility] PT/APTT 2021-09-07 Kodcorinandcathie, [facility] 15:15:00 [facility] FIBRINOGEN 2021-09-07 Kodakandla, [facility] 15:15:00 [facility] LACTIC ACID, ARTERIAL 2021-09-07 Kodcorinandcathie, [facility] 15:15:00 [facility] PHOSPHORUS 2021-09-07 Kodakandla, [facility] 15:15:00 [facility] OXYGEN SATURATION, MEASURED 2021-09-[address] [facility] 15:15:00 [facility] PREPARE RBC 2021-09-[address] [facility] 14:47:00 [facility] PREPARE PLASMA 2021-09-[address] [facility] 14:47:00 [facility] ANESTHESIA PERIPHERAL BLOCK 2021-09-[address] 14:40:56 [facility] RRL CRITICAL LABS 2021-09-[address] [facility] (ABG,NA,K,H&H,GLUCOSE) 13:26:59 [facility] enter CALCIUM, IONIZED 2021-09-[address] [facility] 13:26:59 [facility] BLOOD GAS, ARTERIAL 2021-09-[address] [facility] 13:26:59 [facility] SODIUM NA-STAT LAB 2021-09-[address] [facility] 13:26:59 [facility] POTASSIUM-STAT LAB 2021-09-[address] [facility] 13:26:59 [facility] GLUCOSE-STAT LAB 2021-09-[address] [facility] 13:26:59 [facility] HGB/HCT (H&H) - STAT LAB 2021-09-[address] [facility] 13:26:59 [facility] POCT-ACT 2021-09-[address] [facility] 13:03:00 [facility] PLATELET COUNT 2021-09-[address] [facility] 12:59:25 [facility] CBC W/PLT COUNT & AUTO 2021-09-[address] [facility] DIFFERENTIAL 12:59:00 [facility] CBC W/PLT COUNT & AUTO 2021-09-[address] [facility] DIFFERENTIAL 12:59:00 [facility] RRL CRITICAL LABS 2021-09-[address] [facility] (ABG,NA,K,H&H,GLUCOSE) 12:42:36 [facility] enter CALCIUM, IONIZED 2021-09-[address] [facility] 12:42:36 [facility] PROTHROMBIN TIME/INR 2021-09-[address] [facility] 12:42:36 [facility] APTT 2021-09-[address] [facility] 12:42:36 [facility] FIBRINOGEN 2021-09-[address] [facility] 12:42:36 [facility] BLOOD GAS, ARTERIAL 2021-09-[address] [facility] 12:42:36 [facility] SODIUM NA-STAT LAB 2021-09-[address] [facility] 12:42:36 [facility] POTASSIUM-STAT LAB 2021-09-[address] [facility] 12:42:36 [facility] GLUCOSE-STAT LAB 2021-09-[address] [facility] 12:42:36 [facility] HGB/HCT (H&H) - STAT LAB 2021-09-[address] [facility] 12:42:36 [facility] POCT-ACT 2021-09-[address] [facility] 12:15:00 [facility] RRL CRITICAL LABS 2021-09-[address] [facility] (ABG,NA,K,H&H,GLUCOSE) 12:13:19 [facility] enter BLOOD GAS, ARTERIAL 2021-09-[address] [facility] 12:13:19 [facility] SODIUM NA-STAT LAB 2021-09-[address] [facility] 12:13:19 [facility] POTASSIUM-STAT LAB 2021-09-[address] [facility] 12:13:19 [facility] GLUCOSE-STAT LAB 2021-09-[address] [facility] 12:13:19 [facility] HGB/HCT (H&H) - STAT LAB 2021-09-[address] [facility] 12:13:19 [facility] TISSUE EXAM 2021-09-[address] [facility] 12:07:00 [facility] POCT-ACT 2021-09-[address] [facility] 11:41:00 [facility] LACTIC ACID, ARTERIAL 2021-09-[address] [facility] 11:39:09 [facility] RRL CRITICAL LABS 2021-09-[address] [facility] (ABG,NA,K,H&H,GLUCOSE) 11:39:04 [facility] enter BLOOD GAS, ARTERIAL 2021-09-[address] [facility] 11:39:04 [facility] SODIUM NA-STAT LAB 2021-09-[address] [facility] 11:39:04 [facility] POTASSIUM-STAT LAB 2021-09-[address] [facility] 11:39:04 [facility] GLUCOSE-STAT LAB 2021-09-[address] [facility] 11:39:04 [facility] HGB/HCT (H&H) - STAT LAB 2021-09-[address] [facility] 11:39:04 [facility] MISCELLANEOUS LAB ORDER 2021-09-[address] [facility] 11:29:37 [facility] RRL CRITICAL LABS 2021-09-[address] [facility] (ABG,NA,K,H&H,GLUCOSE) 11:07:40 [facility] enter BLOOD GAS, ARTERIAL 2021-09-[address] [facility] 11:07:40 [facility] SODIUM NA-STAT LAB 2021-09-[address] [facility] 11:07:40 [facility] POTASSIUM-STAT LAB 2021-09-[address] [facility] 11:07:40 [facility] GLUCOSE-STAT LAB 2021-09-[address] [facility] 11:07:40 [facility] HGB/HCT (H&H) - STAT LAB 2021-09-[address] [facility] 11:07:40 [facility] POCT-ACT 2021-09-[address] [facility] 10:57:00 [facility] LACTIC ACID, ARTERIAL 2021-09-[address] [facility] 10:44:04 [facility] POCT-ACT 2021-09-[address] [facility] 10:41:00 [facility] RRL CRITICAL LABS 2021-09-[address] [facility] (ABG,NA,K,H&H,GLUCOSE) 10:38:15 [facility] enter BLOOD GAS, ARTERIAL 2021-09-[address] [facility] 10:38:15 [facility] SODIUM NA-STAT LAB 2021-09-[address] [facility] 10:38:15 [facility] POTASSIUM-STAT LAB 2021-09-[address] [facility] 10:38:15 [facility] GLUCOSE-STAT LAB 2021-09-07 Ramya, Colby [facility] 10:38:15 [facility] HGB/HCT (H&H) - STAT LAB 2021-09-07 Ramya, Colby [facility] 10:38:15 [facility] ANESTHESIA ROXI 2021-09-[address] [facility] 10:08:54 [facility] POCT-ACT 2021-09-07 Jing, Jerrell [facility] 10:07:00 [facility] POCT-ACT 2021-09-07 Jing, Jerrell [facility] 09:32:00 [facility] RRL CRITICAL LABS 2021-09-[address] [facility] (ABG,NA,K,H&H,GLUCOSE) 08:35:02 [facility] enter CALCIUM, IONIZED 2021-09-[address] [facility] 08:35:02 [facility] BLOOD GAS, ARTERIAL 2021-09-[address] [facility] 08:35:02 [facility] SODIUM NA-STAT LAB 2021-09-[address] [facility] 08:35:02 [facility] POTASSIUM-STAT LAB 2021-09-[address] [facility] 08:35:02 [facility] GLUCOSE-STAT LAB 2021-09-[address] [facility] [facility] 08:35:02 [facility] HGB/HCT (H&H) - STAT LAB 2021-09-[address] [facility] 08:35:02 [facility] ROBOTIC MITRAL VALVE REPLACEMENT 2021-09-[address] [facility] 07:45:00 [facility] ROBOTIC THORACOSCOPY 2021-09-[address] [facility] (VATS),LIGATION ATRIAL APPENDAGE 07:45:00 [facility] MAZE PROCEDURE, MODIFIED 2021-09-[address] [facility] 07:45:00 [facility] ECHOCARDIOGRAM, 3D, 2021-09-[address] [facility] TRANSESOPHAGEAL 07:45:00 [facility] ECG 12-LEAD 2021-09-[address] [facility] 04:35:18 [facility] ECG 12-LEAD 2021-09-07 Unknown, Hl7 [facility] 04:35:18 [facility] TYPE AND SCREEN, AUTOMATED 2021-09-07 Nieves[facility]erve [facility] 02:59:00 [facility] CBC W/PLT COUNT & AUTO 2021-09-07 Farjo, Basuziel [facility] DIFFERENTIAL 02:59:00 [facility] HEMOGLOBIN A1C 2021-09-07 Nieves, Herve [facility] 02:59:00 [facility] LIPID PANEL 2021-09-07 Nieves, Herve [facility] 02:59:00 [facility] APTT 2021-09-07 Nieves, Herve [facility] 02:59:00 [facility] TSH 2021-09-07 Nieves, Herve [facility] 02:59:00 [facility] CBC W/PLT COUNT & AUTO 2021-09-07 Farjo, Bashar [facility] DIFFERENTIAL 02:59:00 [facility] PROTHROMBIN TIME/INR 2021-09-[address] [facility] 02:59:00 [facility] BLOOD GAS, VENOUS 2021-09-[address] [facility] 02:59:00 [facility] COMPREHENSIVE METABOLIC PANEL 2021-09-07 [address] [facility] 02:59:00 [facility] MAGNESIUM 2021-09-[address] [facility] 02:59:00 [facility] PHOSPHORUS 2021-09-[address] [facility] 02:59:00 [facility] POCT-GLUCOSE METER 2021-09-[address] [facility] 21:09:00 [facility] APTT 2021-09-[address] [facility] 17:52:00 [facility] PROTHROMBIN TIME/INR 2021-09-06 Ezequiel, Herve [facility] 17:52:00 [facility] POCT-GLUCOSE METER 2021-09-06 Jing, Jerrell [facility] 17:14:00 [facility] POCT-GLUCOSE METER 2021-09-06 Jing, Jerrell [facility] 11:09:00 [facility] APTT 2021-09-06 Zully Lagunaan A [facility] 11:05:00 [facility] POCT-GLUCOSE METER 2021-09-06 Jing, Jerrell [facility] 08:04:00 [facility] ECG 12-LEAD 2021-09-06 Luz Elena Kameron A [facility] 07:15:01 [facility] ECG 12-LEAD 2021-09-06 Unknown, Hl7 [facility] 07:15:01 [facility] ECG 12-LEAD 2021-09-06 Unknown, Hl7 [facility] 07:12:35 [facility] CBC W/PLT COUNT & AUTO 2021-09-06 Jean-Claudejo, Bashar [facility] DIFFERENTIAL 05:03:00 [facility] BLOOD GAS, VENOUS 2021-09-06 Zully Lagunaan A [facility] 05:03:00 [facility] BASIC METABOLIC PANEL 2021-09-06 Kameron Laguna A [facility] 05:03:00 [facility] MAGNESIUM 2021-09-06 Zully Lagunaan A [facility] 05:03:00 [facility] CBC W/PLT COUNT & AUTO 2021-09-06 Fernanda, Bashar [facility] DIFFERENTIAL 05:03:00 [facility] APTT 2021-09-06 Kameron Laguna A [facility] 05:03:00 [facility] APTT 2021-09-05 Jing, Jerrell [facility] 22:08:00 [facility] POCT-GLUCOSE METER 2021-09-05 Jing, Jerrell [facility] 21:45:00 [facility] ECG 12-LEAD 2021-09-05 Zully Lagunaan A [facility] 20:35:24 [facility] ECG 12-LEAD 2021-09-05 Unknown, Hl7 [facility] 20:35:24 [facility] POCT-GLUCOSE METER 2021-09-05 Jing, Jerrell [facility] 17:04:00 [facility] APTT 2021-09-05 Kameron Laguna A [facility] 16:36:00 [facility] B-TYPE NATRIURETIC FACTOR (BNP) 2021-09-[address] [facility] 16:36:00 [facility] BASIC METABOLIC PANEL 2021-09-[address] [facility] 16:36:00 [facility] MAGNESIUM 2021-09-05 Kameron Laguna A [facility] 16:36:00 [facility] POCT-GLUCOSE METER 2021-09-05 Jing, Jerrell [facility] 11:28:00 [facility] POCT-GLUCOSE METER 2021-09-05 Jing, Jerrell [facility] 08:21:00 [facility] APTT 2021-09-05 Zully Lagunaan A [facility] 08:16:00 [facility] APTT 2021-09-05 Kameron Laguna A [facility] 04:28:00 [facility] BASIC METABOLIC PANEL 2021-09-[address] [facility] 04:28:00 [facility] MAGNESIUM 2021-09-05 Zully Lagunaan [address] [facility] 04:28:00 [facility] BLOOD GAS, VENOUS 2021-09-05 Kameron Laguna A [facility] 04:28:00 [facility] VANCOMYCIN LEVEL, TROUGH 2021-09-05 Ofoegbuna, Ifoma [facility] 04:28:00 [facility] XR CHEST 1 VIEW PORTABLE / BEDSIDE 2021-09-[address] [facility] 00:32:00 [facility] POCT-GLUCOSE METER 2021-09-04 Jing, Jerrell [facility] 23:57:00 [facility] APTT 2021-09-04 Kameron Laguna A [facility] 22:30:00 [facility] POCT-GLUCOSE METER 2021-09-04 Jing, Jerrell [facility] 22:29:00 [facility] CAROTID DOPPLER BILATERAL 2021-09-[address] [facility] 20:37:00 [facility] POCT-GLUCOSE METER 2021-09-04 Jing, Jerrell [facility] 18:02:00 [facility] BASIC METABOLIC PANEL 2021-09-04 Zully Lag[address]an [address] [facility] 18:02:00 [facility] MAGNESIUM 2021-09-04 [address] [facility] 18:02:00 [facility] BLOOD GAS, VENOUS 2021-09-04 Luz Elena Kameron A [facility] 18:02:00 [facility] CTA CHEST 2021-09-[address] [facility] 15:55:00 [facility] CTA ABDOMEN & PELVIS 2021-09-[address] [facility] 15:55:00 [facility] APTT 2021-09-04 [address] [facility] 15:16:00 [facility] APTT 2021-09-04 [address] [facility] 14:00:00 [facility] APTT 2021-09-04 Kameron Laguna A [facility] 12:58:00 [facility] POCT-GLUCOSE METER 2021-09-[address] [facility] 12:21:00 [facility] TRANSESOPHAGEAL ECHO 2021-09-04 Kameron Laguna A [facility] 10:56:06 [facility] POCT-GLUCOSE METER 2021-09-04 Jing, Jerrell [facility] 09:29:00 [facility] CBC W/PLT COUNT & AUTO 2021-09-04 Ali, Hiba Cooper [facility] DIFFERENTIAL 04:47:00 [facility] CBC W/PLT COUNT & AUTO 2021-09-04 Ali, Hiba Cooper [facility] DIFFERENTIAL 04:47:00 [facility] BASIC METABOLIC PANEL 2021-09-04 Kameron Laguna A [facility] 04:47:00 [facility] MAGNESIUM 2021-09-04 Zully [address]unaan [address] [facility] 04:47:00 [facility] APTT 2021-09-04 Zully [address]unaan [address] [facility] 04:47:00 [facility] BLOOD GAS, VENOUS 2021-09-04 [address]an [address] [facility] 04:36:00 [facility] XR CHEST 1 VIEW PORTABLE / BEDSIDE 2021-09-04 Falohun, Adew unmi [facility] 00:40:00 [facility] POCT-GLUCOSE METER 2021-09-03 Jing, Jerrell [facility] 22:04:00 [facility] POCT-GLUCOSE METER 2021-09-03 Jing, Jerrell [facility] 16:27:00 [facility] PROCALCITONIN 2021-09-03 Luz Elena, Kameron Bettencourt [facility] 16:04:00 [facility] BASIC METABOLIC PANEL 2021-09-03 Luz Elena, Kameron Bettencourt [facility] 16:04:00 [facility] MAGNESIUM 2021-09-03 Luz Elena, Kameron A [facility] 16:04:00 [facility] BLOOD GAS, VENOUS 2021-09-03 Luz Elena, Kameron A [facility] 16:04:00 [facility] ECG 12-LEAD 2021-09-[address] [facility] 15:00:16 [facility] ECG 12-LEAD 2021-09-03 Unknown, Hl7 [facility] 15:00:16 [facility] ECG 12-LEAD 2021-09-03 Unknown, Hl7 [facility] 14:59:48 [facility] 2D ECHO W/ DOPPLER (CW/PW/COLOR) 2021-09-[address] [facility] 09:48:42 [facility] CONT WAVE PULSED DOPPLER 2021-09-03 Luz Elena, Kameron Bettencourt [facility] 09:44:53 [facility] COLOR-FLOW MAPPING 2021-09-03 Luz Elena, Kameron Bettencourt [facility] 09:44:52 [facility] ECG 12-LEAD 2021-09-03 Unknown, Hl7 [facility] 07:30:39 [facility] ECG 12-LEAD 2021-09-03 Unknown, Hl7 [facility] 07:30:39 [facility] ECG 12-LEAD 2021-09-03 Unknown, Hl7 [facility] 07:30:02 [facility] ECG 12-LEAD 2021-09-03 Unknown, Hl7 [facility] 07:30:02 [facility] BLOOD CULTURE 2021-09-03 Jing, Jerrell [facility] 06:56:00 [facility] CBC W/PLT COUNT & AUTO 2021-09-03 Ali, Hiba Cooper [facility] DIFFERENTIAL 04:31:00 [facility] CBC W/PLT COUNT & AUTO 2021-09-03 Ali, Hiba Cooper [facility] DIFFERENTIAL 04:31:00 [facility] BASIC METABOLIC PANEL 2021-09-03 Ali, Hiba Cooper [facility] 04:31:00 [facility] B-TYPE NATRIURETIC FACTOR (BNP) 2021-09-03 Nadimpalli, [facility] 04:31:00 [facility] BLOOD GAS, VENOUS 2021-09-03 Falohun, Adewunmi [facility] 04:31:00 [facility] HIGH SENSITIVITY TROPONIN I 2021-09-03 Adhi, Otis [facility] 04:31:00 [facility] LACTIC ACID, VENOUS 2021-09-03 Falohun, Nhungwunmi [facility] 04:31:00 [facility] MAGNESIUM 2021-09-03 Zully Lagunamalena Bettencourt [facility] 04:31:00 [facility] XR CHEST 1 VIEW PORTABLE / BEDSIDE 2021-09-03 Falohun, Nhungw unmi [facility] 02:05:00 [facility] HIGH SENSITIVITY TROPONIN I 2021-09-02 Adhi, Otis [facility] 22:33:00 [facility] LACTIC ACID, VENOUS 2021-09-02 Falohun, Nhungwunmi [facility] 22:33:00 [facility] LACTIC ACID, VENOUS 2021-09-02 Nadimpalli, [facility] 19:28:00 [facility] BASIC METABOLIC PANEL 2021-09-02 Nadimpalli, [facility] 19:28:00 [facility] B-TYPE NATRIURETIC FACTOR (BNP) 2021-09-02 Ali, Hiba Cooper [facility] 17:17:00 [facility] PROCALCITONIN 2021-09-02 Ali, Hiba Cooper [facility] 17:17:00 [facility] HIGH SENSITIVITY TROPONIN I 2021-09-02 Ali, Hiba Cooper [facility] 17:17:00 [facility] LACTIC ACID, ARTERIAL 2021-09-02 Ali, Hiba Cooper [facility] 17:17:00 [facility] POCT-BLOOD GASES, ARTERIAL 2021-09-02 Ali, Edith Alejor [facility] 17:15:00 [facility] POCT-SODIUM 2021-09-02 Ali, Hiba Cooper [facility] 17:15:00 [facility] POCT-POTASSIUM 2021-09-02 Ali, Hiba Cooper [facility] 17:15:00 [facility] POCT-HEMOGLOBIN 2021-09-02 Ali, Hiba Cooper [facility] 17:15:00 [facility] POCT-HEMATOCRIT 2021-09-02 Ali, Hiba Cooper [facility] 17:15:00 [facility] POCT-GLUCOSE 2021-09-02 Ali, Hiba Cooper [facility] 17:15:00 [facility] XR CHEST 1 VIEW PORTABLE / BEDSIDE 2021-09-02 Ali, Edith Collinsh ir [facility] 16:58:00 [facility] ECG 12-LEAD 2021-09-02 Unknown, Hl7 [facility] 16:50:07 [facility] ECG 12-LEAD 2021-09-[address] [facility] 16:50:07 [facility] ECG 12-LEAD 2021-09-02 Unknown, Hl7 [facility] 16:49:46 [facility] ECG 12-LEAD 2021-09-02 Unknown, Hl7 [facility] 16:49:46 [facility] ECG 12-LEAD 2021-09-02 Unknown, Hl7 [facility] 16:48:34 [facility] ECG 12-LEAD 2021-09-02 Unknown, Hl7 [facility] 16:48:19 [facility] CBC W/PLT COUNT & AUTO 2021-09-02 Ali, Hiba Cooper [facility] DIFFERENTIAL 05:14:00 [facility] CBC W/PLT COUNT & AUTO 2021-09-02 Ali, Hiba Cooper [facility] DIFFERENTIAL 05:14:00 [facility] BASIC METABOLIC PANEL 2021-09-02 Ali, Hiba Cooper [facility] 05:14:00 [facility] CT CHEST WITH IV CONTRAST 2021-09-01 Ali, Hiba Cooper [facility] 23:45:00 [facility] FERRITIN 2021-09-01 Ali, Hiba Cooper [facility] 17:14:00 [facility] IRON, TIBC, % SAT. (WITHOUT 2021-09-[address] [facility] FERRITIN) 17:14:00 [facility] 2D ECHO W/ DOPPLER (CW/PW/COLOR) 2021-09-[address] [facility] 13:34:34 [facility] [place] ESOPH SWALLOW FUNCT WITH CINE 2021-09-[address] [facility] VIDEO 11:43:00 [facility] REPORT OF PROCEDURE - ENDOSCOPY 2021-09-01 Maria Teresa Meliza [facility] URL 08:31:23 [facility] ESOPHAGOGASTRODUODENOSCOPY 2021-09-01 Maria Teresa Meliza [facility] 07:49:00 [facility] CBC W/PLT COUNT & AUTO 2021-09-01 Jonnie Junieshjuan josé D [facility] DIFFERENTIAL 05:48:00 [facility] CBC W/PLT COUNT & AUTO 2021-09-01 Jonnie [address] D [facility] DIFFERENTIAL 05:48:00 [facility] BASIC METABOLIC PANEL 2021-09-01 Jonnie, Yashjuan josé D [facility] 05:48:00 [facility] HEPATIC FUNCTION PANEL 2021-09-01 Jonnie, Yashash D [facility] 05:48:00 [facility] PROTHROMBIN TIME/INR 2021-09-01 Jonnie, [facility]ash [facility] 05:48:00 [facility] MAGNESIUM 2021-09-01 Jonnie Junieshjuan josé D [facility] 05:48:00 [facility] PHOSPHORUS 2021-09-01 Jonnie, Yashjuan josé D [facility] 05:48:00 [facility] TSH/FREE T4 IF INDICATED 2021-09-[address] [facility] 05:48:00 [facility] ECG 12-LEAD 2021-08-31 Unknown, Hl7 [facility] 16:26:58 [facility] ECG 12-LEAD 2021-08-31 Unknown, Hl7 [facility] 16:26:58 [facility] SARS-COV2/RT-PCR ([facility]) 2021-08-[address] [facility] 14:36:00 [facility] LACTIC ACID, VENOUS 2021-08-[address] [facility] 12:48:00 [facility] CBC W/PLT COUNT & AUTO 2021-08-[address] [facility] DIFFER[facility] 12:46:00 [facility] BASIC METABOLIC PANEL 2021-08-31 Amilcar, Alexa [facility] 12:46:00 [facility] CBC W/PLT COUNT & AUTO 2021-08-[address] [facility] DIFFERENTIAL 12:46:00 [facility] HIGH SENSITIVITY TROPONIN I 2021-08-31 [facility] 12:46:00 [facility] PROTHROMBIN TIME/INR 2021-08-[address] [facility] 12:46:00 [facility] APTT 2021-08-31 Alexa Fitzgerald [facility] 12:46:00 [facility] EKG-SCANNED 2021-08-[address] [facility] 00:[facility]00 [facility] [place] ESOPHAGUS 2021-07-[address] [facility] 10:07:00 [facility] BASIC METABOLIC PANEL 2021-07-[address] [facility] 04:05:00 [facility] SARS-COV2/RT-PCR ([facility]) 2021-07-[address] [facility] 16:14:00 [facility] D-DIMER 2021-07-03 George, Thuyen [facility] 16:14:00 [facility] BLOOD GAS, VENOUS 2021-07-03 George, Thuyen [facility] 16:14:00 [facility] XR CHEST 2 VIEWS 2021-07-[address] [facility] 13:42:00 [facility] CBC W/PLT COUNT & AUTO 2021-07-[address] [facility] DIFFERENTIAL 13:28:00 [facility] B-TYPE NATRIURETIC FACTOR (BNP) 2021-07-[address] [facility] 13:28:00 [facility] COMPREHENSIVE METABOLIC PANEL 2021-07-03 Tacos [address] [facility] 13:28:00 [facility] CBC W/PLT COUNT & AUTO 2021-07-[address] [facility] DIFFERENTIAL 13:28:00 [facility] LIPASE 2021-07-[address] [facility] 13:28:00 [facility] HIGH SENSITIVITY TROPONIN I 2021-07-[address] [facility] 13:28:00 [facility] ECG 12-LEAD 2021-07-[address] [facility] 13:11:56 [facility] ECG 12-LEAD 2021-07-03 Unknown, Hl7 [facility] 13:11:56 [facility] EKG-SCANNED 2021-07-[address] [facility] 00:00:00 [facility] HEMOGLOBIN AND HEMATOCRIT 2021-05-26 Gadichercathie, Noa [facility] 04:39:00 [facility] PREPARE LEUKO-REDUCED RBC 2021-05-[address] [facility] 23:54:00 [facility] HEMOGLOBIN AND HEMATOCRIT 2021-05-25 Gadicherla, Noa [facility] 18:30:00 [facility] HEMOGLOBIN AND HEMATOCRIT 2021-05-25 Gadicherla, Noa [facility] 10:43:00 [facility] HEMOGLOBIN AND HEMATOCRIT 2021-05-25 Gadicherla, Noa [facility] 04:19:00 [facility] HEMOGLOBIN AND HEMATOCRIT 2021-05-[address] [facility] 16:22:00 [facility] HEMOGLOBIN AND HEMATOCRIT 2021-05-[address] [facility] 08:03:00 [facility] BASIC METABOLIC PANEL (7) 2021-05-[address] [facility] 08:03:00 [facility] TRANSFUSE LEUKO-REDUCED RED BLOOD 2021-05-[address] [facility] CELLS 01:55:00 [facility] SARS-COV2/RT-PCR ([facility]) 2021-05-[address] [facility] 19:01:00 [facility] TYPE AND SCREEN, AUTOMATED 2021-05-23 Rajha, [facility]ellen [facility] 16:24:00 [facility] CBC W/PLT COUNT & AUTO 2021-05-23 Rajha, Suellen [facility] DIFFERENTIAL 16:24:00 [facility] CBC W/PLT COUNT & AUTO 2021-05-23 Rajha, Suellen [facility] DIFFERENTIAL 16:24:00 [facility] Center PT/APTT 2021-05-23 Rajha, Suellen [facility] 16:24:00 [facility] COMPREHENSIVE METABOLIC PANEL 2021-05-23 Rajha, Suellen [facility] 16:23:00 [facility] LIPASE 2021-05-23 Rajha, Suellen [facility] 16:23:00 [facility] ECG 12-LEAD 2021-05-23 Unknown, Hl7 [facility] 15:13:04 [facility] EKG-SCANNED 2021-05-23 Provider, Default [facility] 00:00:00 Scanning [facility] CBC W/PLT COUNT & AUTO 2021-05-20 Alao, Titilola [facility] DIFFERENTIAL 04:10:00 [facility] CBC W/PLT COUNT & AUTO 2021-05-20 Alao, Titilola [facility] DIFFERENTIAL 04:10:00 [facility] BASIC METABOLIC PANEL (7) 2021-05-20 Alao, Titilola [facility] 04:10:00 [facility] CBC (HEMOGRAM ONLY) 2021-05-[address] [facility] 03:43:00 [facility] BASIC METABOLIC PANEL (7) 2021-05-17 [facility] 03:43:00 [facility] HEMOGLOBIN AND HEMATOCRIT 2021-05-16 [facility]egan [facility] 20:11:00 [facility] REPORT OF PROCEDURE - ENDOSCOPY 2021-05-[address] [facility] URL 11:57:57 [facility] ESOPHAGOGASTRODUODENOSCOPY 2021-05-16 [facility]ers [facility] 11:15:00 [facility] CBC W/PLT COUNT & AUTO 2021-05-[address] [facility] DIFFERENTIAL 04:48:00 [facility] CBC W/PLT COUNT & AUTO 2021-05-16 Veronique, Bar [facility] DIFFERENTIAL 04:48:00 [facility] BASIC METABOLIC PANEL (7) 2021-05-[address] [facility] 04:48:00 [facility] HEMOGLOBIN AND HEMATOCRIT 2021-05-[address] [facility] 23:52:00 [facility] SARS-COV2/RT-PCR ([facility]) 2021-05-[address] [facility] 16:46:00 [facility] ECG 12-LEAD 2021-05-15 Unknown, Hl7 [facility] 15:26:10 [facility] Center TYPE AND SCREEN, AUTOMATED 2021-05-15 Jacobo Steward [facility] 15:00:00 [facility] CBC W/PLT COUNT & AUTO 2021-05-[address] [facility] DIFFERENTIAL 15:00:00 [facility] CBC W/PLT COUNT & AUTO 2021-05-[address] [facility] DIFFERENTIAL 15:00:00 [facility] COMPREHENSIVE METABOLIC PANEL 2021-05-15 [address] [facility] 15:00:00 [facility] MAGNESIUM 2021-05-[address] [facility] 15:00:00 [facility] PHOSPHORUS 2021-05-[address] [facility] 15:00:00 [facility] HIGH SENSITIVITY TROPONIN I 2021-05-[address] [facility] 15:00:00 [facility] XR CHEST 1 VIEW PORTABLE / BEDSIDE 2021-05-15 [address] [facility] 13:52:00 [facility] EKG-SCANNED 2021-05-15 Provider, Default [facility] 00:00:00 Scanning [facility] EGD (ENDO) 2019-04-22 Melida [facility] 12:55:59 Willy Duke [facility] DAY SURGERY - ADC 2019-04-22 [facility] 05:01:00 Unassigned, No [place] [facility] Plan of Care Planned Activity Planned Date Details Comments Source Future Scheduled 2023-04-[address] [facility] Test 00:00:00 (#1) [code = [facility] Center Influenza Vaccine (#1)] Future Scheduled 2022-10-[address] [facility] Test 00:00:00 [facility] Screening (12+) [code = Tobacco Cessation Counseling and Screening (12+)] Future Scheduled 2022-10-[address] [facility] Test 00:00:00 [facility] r Screening (12+) [code = Tobacco Cessation Counseling and Screening (12+)] Future Scheduled 2022-08-[address] [facility] 00:00:00 (12+) [code = [facility] DEPRESSION SCREENING (12+)] Future Scheduled 2022-08-19 F[address]S RISK SCREENING [facility] 00:00:00 [code = FALLS RISK Medical C enter SCREENING] Future Scheduled 2022-04-[address] [facility] Test 00:00:00 (#1) [code = [facility] Center INFLUENZA VACCINE (#1)] Future Scheduled 2022-04-[address] [facility] 00:00:00 (#1) [code = [facility] INFLUENZA VACCINE (#1)] Future Scheduled 2022-04-[address] [facility] 00:00:00 (#1) [code = [facility] Center INFLUENZA VACCINE (#1)] Future Scheduled 2021-09-12 COVID-19 VACCINE (2 - [facility]00 Pfizer series) [code Medical Center = COVID-19 VACCINE (2 - Pfizer series)] Future Scheduled 2021-08-[address] [facility] 00:00:00 WELLNESS (YEAR 2 or Medical Center FIRST YEAR if no IPPE) [code = MEDICARE ANNUAL WELLNESS (YEAR 2 or FIRST YEAR if no IPPE)] Future Scheduled 2021-08-[address] [facility] 00:00:00 WELLNESS (YEAR 2 or Medical Center FIRST YEAR if no IPPE) [code = MEDICARE ANNUAL WELLNESS (YEAR 2 or FIRST YEAR if no IPPE)] Future Scheduled 2021-08-[address] [facility] 00:00:00 WELLNESS (YEAR 2 or Medical Center FIRST YEAR if no IPPE) [code = MEDICARE ANNUAL WELLNESS (YEAR 2 or FIRST YEAR if no IPPE)] Future Scheduled 2021-08-[address] [facility] 00:00:00 WELLNESS (YEAR 2 or Medical Center FIRST YEAR if no IPPE) [code = MEDICARE ANNUAL WELLNESS (YEAR 2 or FIRST YEAR if no IPPE)] Future Scheduled 2021-08-08 COVID-19 VACCINE (2 - [facility] 00:[facility]00 Pfizer series) [code Medical Center = COVID-19 VACCINE (2 - Pfizer series)] Future Scheduled 2021-08-08 COVID-19 VACCINE (2 - [facility] 00:00:00 Pfizer series) [code Medical Center = COVID-19 VACCINE (2 - Pfizer series)] Future Scheduled 2021-08-08 COVID-19 VACCINE (2 - [facility] 00:00:00 Pfizer series) [code Medical Center = COVID-19 VACCINE (2 - Pfizer series)] Future Scheduled 1993 SHINGLES VACCINES ([address] [facility] 00:00:00 of 2) [code = Medical Center SHINGLES VACCINES (1 of 2)] Future Scheduled 1993 SHINGLES VACCINES ([address] [facility] 00:00:00 of 2) [code = Medical Center SHINGLES VACCINES (1 of 2)] Future Scheduled 1993 SHINGLES VACCINES ([address] [facility] 00:00:00 of 2) [code = Medical Center SHINGLES VACCINES (1 of 2)] Future Scheduled 1993 SHINGLES VACCINES ([address] [facility] 00:00:00 of 2) [code = Medical Center SHINGLES VACCINES (1 of 2)] Future Scheduled 1962 DTAP/TDAP/TD VACCINES [facility] 00:00:00 (1 - Tdap) [code = Medical C enter DTAP/TDAP/TD VACCINES (1 - Tdap)] Future Scheduled 1962 DTAP/TDAP/TD VACCINES [facility] 00:00:00 (1 - Tdap) [code = Medical C enter DTAP/TDAP/TD VACCINES (1 - Tdap)] Future Scheduled 1962 DTAP/TDAP/TD VACCINES [facility] 00:00:00 (1 - Tdap) [code = Medical C enter DTAP/TDAP/TD VACCINES (1 - Tdap)] Future Scheduled 1962 DTAP/TDAP/TD VACCINES [facility] 00:00:00 (1 - Tdap) [code = Medical C enter DTAP/TDAP/TD VACCINES (1 - Tdap)] Future Scheduled [...] ID 2021-09-20 Outpatient 3 VICKY BELTRAN CRD [id number] [facility] 15:05:33 [facility] [place] 2021-09-15 Outpatient 3 VICKY BELTRAN CRD [id number] [facility] 14:41:07 ALBA 0[facility] [place] 2021-09-14 Outpatient 3 [id number] ENCPL CRD [id number] [facility] 13:28:13 1209 [facility] [place] 2021-09-14 Outpatient 3 [id number] ENCPL REF [id number] [facility] 13:27:27 1208 [facility] [place] 2021-09-14 Outpatient 3 [id number] ENCPL REF [id number] [facility] 13:27:13 1207 [facility] [place] 2021-05-28 Inpatient ER FRACISCO JARAMILLO [facility] [id number] [facility] 12:00:47 RYLAN 2021-11-21 2021-11-21 Anesthesia David [facility] [id number] [facility] St 23:59:59 23:59:59 Event [facility] 2021-11-06 2021-11-06 Telephone Elle [facility] [id number] 00[facility]00:00 00:00:00 [facility] 2021-10-04 2021-10-04 Office Mack [facility] [id number] 09:00:00 09:30:00 Visit [facility] 2021-10-04 2021-10-04 Outpatient ARCELIA PARK [facility] [id number] SLE 08:41:28 08:41:28 [facility] 2021-08-31 2021-09-19 Hospital ER Alexa Fitzgerald [facility] [id number] [facility] 12:30:00 17:01:00 Encounter Michael Cristina [facility], [facility], Raz Saldivar, Bartolo Arnold [facility] 2021-08-31 2021-09-19 Inpatient ER JUAN CARLOS [facility] Surgery [id number] SLE 12:30:00 17:01:00 [facility] 2021-09-07 2021-09-07 Anesthesia Rocky [facility] [id number] 07:58:00 15:09:00 Event Darrel Kelly [facility] 2021-09-07 2021-09-07 Surgery Ramya [facility] [id number] 08:00[facility]00 11:45:[address] [facility] [facility] 2021-09-03 2021-09-03 Outpatient NAVYA CAMARILLO [id number] Navya 00:00:00 00:00:00 ELLIS grissom 2021-09-01 2021-09-01 Surgery Maria Teresa [facility] [id number] 08:00:00 09:00:00 Meliza [facility] 2021-09-01 2021-09-01 Anesthesia Timmy Juan [facility] [id number] 08:01:00 08:36:00 Event Larry Holbrook [facility] 2021-08-31 2021-08-31 Orders [facility] [id number] 00:00:00 00:00:00 Only [facility] 2021-08-31 2021-08-31 Travel [facility] [id number] [facility] 00:[facility]:00 00:00:00 [facility] 2021-07-28 2021-08-04 Inpatient 3 RUBY, ENCPL CRD [id number] [facility] 12:00:00 11:50:00 ALBA 1210 [facility] [place] [facility] 2021-07-03 2021-07-04 Emergency ER Tacos George [facility] [id number] 12:24:00 14:27:00 Darlene Sparks [facility] 2021-07-03 2021-07-04 Outpatient ER HASEEB DARLENE [facility] Emergency [id number] [facility] 12:24:00 14:27:00 2021-07-03 2021-07-03 Orders [facility] [id number] 00:00:00 00:00:00 [facility] 2021-07-03 2021-07-03 Travel [facility] [id number] [facility] 00:00:00 00:00:00 [facility] 2021-05-23 2021-05-26 [id number] 15:12:00 15:03:00 Encounter Wilner Ramirezal Benjamin [facility] 2021-05-23 2021-05-26 Inpatient ER GADDARSHANERLA, [facility] Emergency [id number] [facility] 15:12:00 15:03:00 NOA 2021-05-23 2021-05-23 Travel [facility] [id number] [facility] 00:00:00 00:00:00 [facility] 2021-05-20 2021-05-20 Emergency ER Nichelle [facility] [id number] 06:07:00 06:08:00 [facility] 2021-05-20 2021-05-20 Emergency ER [facility] Emergency [id number] [facility] 01:57:00 01:57:00 2021-05-20 2021-05-20 Travel [facility] [id number] [facility] 00:00:00 00:00:00 [facility] 2021-05-15 2021-05-17 Emergency ER [facility] [id number] [facility] 12:10:00 12:56:00 Bar Toledo [facility] 2021-05-16 2021-05-16 Anesthesia Dillon Tenorio [facility] [id number] 11:24:00 12:17:00 Event Joyce Boss [facility] 2021-05-16 2021-05-16 Surgery Robinson [facility] [id number] 11:00:00 12:00:00 [facility] 2021-05-15 2021-05-15 Emergency ER SLE Emergency [id number] [facility] 12:00:00 12:00:00 2021-05-15 2021-05-15 Travel [facility] [id number] [facility] 00:00:00 00:00:00 [facility] 2019-04-22 2019-04-22 [place] [id number] [facility] 06:15:00 08:56:00 Encounter Katy mena [id number] [id number] [place] [address] Branch 2019-04-22 2019-04-22 [facility] [id number] 06:15:00 08:56:00 Encounter Katy mena 350.1.13.10 [place] 4.2.7.2.686 Surgical [id number] [place] [id number] 2019-04-22 2019-04-22 Anesthesia Rocio, [facility] [id number] Univers 07:54:00 08:13:00 Jaden Loyola 350.1.13.10 i [place] [id number] [facility] 020 Branch 2019-04-22 2019-04-22 Anesthesia Rocio, [facility] [id number] 07:54:00 08:13:00 Jaden Loyola 350.1.13.10 [place] 4.2.7.2.686 Surgical [id number] [place] 020 2019-04-22 2019-04-22 Orders Doctor MURILLO [id number] 00:00:00 00:00:00 Only Unassigned, ANA MARIA 350.1.13.10 [facility] 4.2.7.2.686 [id number] 2019-04-22 2019-04-22 Orders Doctor MURILLO [id number] Univers 00:00:00 00:00:00 Only Unassigned, ANA MARIA 350.1.13.10 ity of [facility] 4.2.7.2.686 [place] as [id number] [address] Results Test Description Test Time Test Comments [...] NOT 1092) ACCURATE CRE ATININE CLEARANCE IN MI EDICTING GLOMERULAR FILT RATION RATE. ESTIMATED GFR IS NOT APPLICABLE FOR DIALYSIS PATIENTS. Curriculum Specialist ID - KEARA WOperator ID - KAYLEEN [id number] 04:56:54 Test Item Value Reference Range Interpretation Comments PHOSPHORUS (BEAKER) (test code = 4.1 mg/dL 2.3-4.7 604) Curriculum Specialist ID - KEARA [id number] 04:56:53 Test Item Value Reference Range Interpretation Comments MAGNESIUM (BEAKER) (test code = 2.1 mg/dL 1.6-2.6 627) Curriculum Specialist ID - KEARA WCALCIUM, [id number] 04:30:35 Test Item Value Reference Range Interpretation Comments CALCIUM IONIZED (BEAKER) (test 1.13 mmol/L 1.12-1.27 code = 698) PH, BLOOD (BEAKER) (test code = 7.47 1810) PROTHROMBIN [id number] 04:04:47 Test Item Value Reference Range Interpretation Comments PROTIME (BEAKER) 27.1 seconds 11.9-14.2 H (test code = 759) INR (BEAKER) (test 2.54 See_Comment [Automat ed message] code = 370) The system [employer] generated this result transmitted ref erence range: <=5.90. The reference range was not used to int erpret this result as normal/abnormal . RECOMMENDED COUMADIN/WARFARIN INR THERAPY RANGESSTANDARD DOSE: 2.0 - 3.0 Includes: PROPHYLAXIS for venous thrombosis, systemic embolization; TREATMENT for venous thrombosis and/or pulmonary embolus.HIGH RISK: Target INR is 2.5-3.5 for patients with mechanical heart valves.CBC W/PLT COUNT & AUTO [id number] 03:57:43 Test Item Value Reference Range Interpretation [...] (BEAKER) (test code = 2801) COMPREHENSIVE METABOLIC [id number] 11:28:15 Test Item Value Reference Range Interpretation [...] S NOT APPLICABLE FOR DIALYSIS PATIEN TS. Curriculum Specialist ID - PIAYA LRAD, CHEST, 1 VIEW, NON [id number] 07:44:00Reason for exam:->S/p Ct SurgeryShould this be performed at the bedside?->Yes [facility] CENTER[facility]: [facility]ILES : 1945 [...] Cordero Verified Date/Time: 09/18/2021 07:44:52 Reading Location: [facility] Radiology Reading Room PROTHROMBIN [id number] 04:28:26 Test Item Value Reference Range Interpretation Comments PROTIME (BEAKER) 24.0 seconds 11.9-14.2 H (test code = 759) INR (BEAKER) (test 2.18 See_Comment [Automat ed message] code = 370) The system [employer] generated this result transmitted ref erence range: <=5.90. The reference range was not used to int erpret this result as normal/abnormal . RECOMMENDED COUMADIN/WARFARIN INR THERAPY RANGESSTANDARD DOSE: 2.0 - 3.0 Includes: PROPHYLAXIS for venous thrombosis, systemic embolization; TREATMENT for venous thrombosis and/or pulmonary embolus.HIGH RISK: Target INR is 2.5-3.5 for patients with mechanical heart valves.[id number] 04:17:02 Test Item Value Reference Range Interpretation Comments MAGNESIUM (BEAKER) (test code = 2.0 mg/dL 1.6-2.6 627) Curriculum Specialist ID - [id number] 04:17:02 Test Item Value Reference Range Interpretation Comments PHOSPHORUS (BEAKER) (test code = 3.6 mg/dL 2.3-4.7 604) Curriculum Specialist ID - DBBASIC METABOLIC [id number] 04:17:01 Test Item Value Reference Range Interpretation [...] S NOT APPLICABLE FOR DIALYSIS PATIEN TS. Curriculum Specialist ID - DBCALCIUM, [id number] 03:53:15 Test Item Value Reference Range Interpretation Comments CALCIUM IONIZED (BEAKER) (test 1.13 mmol/L 1.12-1.27 code = 698) PH, BLOOD (BEAKER) (test code = 7.47 1810) CBC W/PLT COUNT & AUTO [id number] 03:52:23 Test Item Value Reference Range Interpretation [...] PERCENT (BEAKER) (test code = 2801) POC-Glucose [id number] 17:37:37 Test Item Value Reference Range Interpretation Comments POC-Glucose Meter (test 160 mg/dL 70-110 H : TE STED AT [facility] code = 1538) [address] [place] [address], [facility] 30: Curriculum Specialist/Techni bart ID = [id number] for Rowe, Mariss a Lab Interpretation (test Abnormal code = 96001-4) [facility]-Glucose [id number] 17:37:37 Test Item Value Reference Range Interpretation Comments POC-Glucose Meter (test 160 mg/dL 70-110 H : TE STED AT [facility] code = 1538) [address] [place] [address], 770 30: Curriculum Specialist/Techni bart ID = [id number] for Rowe, Mariss a Lab Interpretation (test Abnormal code = 12761-5) [facility] [id number] 17:37:37 Test Item Value Reference Range Interpretation Comments POC-Glucose Meter (test 160 mg/dL 70-110 H : TE STED AT [facility] code = 1538) [address] [facility], 770 30: Curriculum Specialist/Techni bart ID = [id number] for Parrish Rowe Lab Interpretation (test Abnormal code = 60442-3) [facility] [id number] 17:37:37 Test Item Value Reference Range Interpretation Comments POC-GLUCOSE METER 160 mg/dL 70-110 H : TESTED A T [facility] 6720 (BEAKER) (test code = [facility], 1538) [address]: Curriculum Specialist/Techni bart ID = [id number] for Sammie Mercado POCT-GLUCOSE [id number] 12:40:04 Test Item Value Reference Range Interpretation Comments POC-GLUCOSE METER 126 mg/dL 70-110 H : [facility] (BEAKER) (test code = [facility], 1538) 815[address]: Curriculum Specialist/Techni bart ID = [id number] for Sammie Mercado [id number] 08:29:45 Test Item Value Reference Range Interpretation Comments PHOSPHORUS (BEAKER) (test code = 4.0 mg/dL 2.3-4.7 604) Curriculum Specialist ID - [id number] 08:29:44 Test Item Value Reference Range Interpretation Comments MAGNESIUM (BEAKER) (test code = 2.1 mg/dL 1.6-2.6 627) Curriculum Specialist ID - DBPOCT-GLUCOSE [id number] 08:09:33 Test Item Value Reference Range Interpretation Comments POC-GLUCOSE METER 91 mg/dL 70-110 : [facility] (BEAKER) (test code = [facility], 1538) [address]99: Curriculum Specialist/Techni bart ID = [id number] for Sammie Lawson CBC W/PLT COUNT & AUTO [id number] 06:42:04 Test Item Value Reference Range Interpretation [...] PERCENT (BEAKER) (test code = 2801) PROTHROMBIN [id number] 06:23:57 Test Item Value Reference Range Interpretation Comments PROTIME (BEAKER) 23.1 seconds 11.9-14.2 H (test code = 759) INR (BEAKER) (test 2.08 See_Comment [Automat ed message] code = 370) The system [employer] generated this result transmitted ref erence range: <=5.90. The reference range was not used to int erpret this result as normal/abnormal . RECOMMENDED COUMADIN/WARFARIN INR THERAPY RANGESSTANDARD DOSE: 2.0 - 3.0 Includes: PROPHYLAXIS for venous thrombosis, systemic embolization; TREATMENT for venous thrombosis and/or pulmonary embolus.HIGH RISK: Target INR is 2.5-3.5 for patients with mechanical heart valves.CALCIUM, [id number] 05:53:20 Test Item Value Reference Range Interpretation Comments CALCIUM IONIZED (BEAKER) (test 1.13 mmol/L 1.12-1.27 code = 698) PH, BLOOD (BEAKER) (test code = 7.48 1810) RAD, CHEST, 1 VIEW, NON [id number] 05:22:00Reason for exam:->S/p Ct SurgeryShould this be performed at the bedside?->[facility] 1945 Sex: MFINAL REPORT RAD, CHEST, 1 VIEW, NON DEPT INDICATION: S/p Ct Surgery COMPARISON:Prior day's exam FINDINGS: Portable frontal view of the chest. IMPRESSION: Support Lines: None Lungsand pleura: Unchanged scattered bilateral parenchymal opacities. No new consolidation. No pneumothorax. Heart and mediastinum: Stable contours. Additional findings: None. Signed: Halley Osullivan Verified Date/Time: 09/17/2021 05:22:46 POCT-GLUCOSE [id number] 21:59:07 Test Item Value Reference Range Interpretation Comments POC-GLUCOSE METER 118 mg/dL 70-110 H : TESTED A T [facility] 6720 (BEAKER) (test code = [facility], 1538) 09463: Curriculum Specialist/Techni bart ID = [id number] for Co rtez, Penn Wynne [id number] 17:58:41 Test Item Value Reference Range Interpretation Comments MAGNESIUM (BEAKER) (test code = 2.0 mg/dL 1.6-2.6 627) Curriculum Specialist ID - KEARA WPOCT-GLUCOSE [id number] 17:29:30 Test Item Value Reference Range Interpretation Comments POC-GLUCOSE METER 123 mg/dL 70-110 H : TESTED A T [facility] 6720 (BEAKER) (test code = [facility], 1538) 9[address]: Curriculum Specialist/Techni bart ID = [id number] for Ba rrera, Sammie POCT-GLUCOSE [id number] 12:52:33 Test Item Value Reference Range Interpretation Comments POC-GLUCOSE METER 122 mg/dL 70-110 H : TESTED A T [facility] 6720 (BEAKER) (test code = [facility], 1538) 73729: Curriculum Specialist/Techni bart ID = [id number] for Ba rrera, Sammie BASIC METABOLIC [id number] 08:28:13 Test Item Value Reference Range Interpretation Comments SODIUM (BEAKER) 134 meq/L 136-145 L (test code = 381) POTASSIUM (BEAKER) 4.5 meq/L 3.5-5.1 (test code = 379) CHLORIDE (BEAKER) 101 meq/L 98-107 (test code = 382) CO2 (BEAKER) (test 24 meq/L code = 355) BLOOD UREA NITROGEN 9 mg/dL 7-21 (BEAKER) (test code = 354) CREATININE (BEAKER) 0.73 mg/dL 0.57-1.25 (test code = 358) GLUCOSE RANDOM 92 mg/dL 70-105 (BEAKER) (test code = 652) CALCIUM (BEAKER) 8.7 mg/dL 8.4-10.2 (test code = 697) EGFR ([place]) (test 104 mL/min/1.73 ESTIM ATED GFR IS code = 1092) sq m NOT ACCURATE CREATININE CLEARANCE IN PREDICTING GLOMERULAR FILTRATION RATE . ESTIMATED GFR I S NOT APPLICABLE FOR DIALYSIS PATIEN TS. Curriculum Specialist ID - KEARA WPOCT-GLUCOSE [id number] 07:58:49 Test Item Value Reference Range Interpretation Comments POC-GLUCOSE METER 82 mg/dL 70-110 : TESTED A T [facility] 6720 ([place]) (test code = [facility] [place], 1538) [address]: Curriculum Specialist/Techni bart ID = [id number] for Sammie Lawson RAD, CHEST, 1 VIEW, NON [id number] 07:01:00Reason for exam:->S/p Ct SurgeryShould this be performed at the bedside?->[facility] 1945 Sex: MFINAL [...] (test code = 4.4 mg/dL 2.3-4.7 604) Curriculum Specialist ID - KEARA HTOMASPZCRJYEJMD2855-45-63 05:10:06 Test Item Value Reference Range Interpretation Comments MAGNESIUM (BEAKER) (test code = 2.0 mg/dL 1.6-2.6 627) Curriculum Specialist ID - KEARA SaavedraRqOGX1354-80-27 04:45:18 Test Item Value Reference Range Interpretation Comments PTT (test code = 46.4 See_Comment H [Automated message] 50409-7) The system [employer] generated this result transmitted ref erence range: 22.5 - 3 6.0 seconds. The reference range was not used to int erpret this result as normal/abnormal . Lab Interpretation (test Abnormal code = 94533-3) [facility] 04:45:18 Test Item Value Reference Range Interpretation Comments PTT (test code = 46.4 See_Comment H [Automated message] 03633-0) The system [employer] generated this result transmitted ref erence range: 22.5 - 3 6.0 seconds. The reference range was not used to int erpret this result as normal/abnormal . Lab Interpretation (test Abnormal code = 76146-0) [facility] 04:45:18 Test Item Value Reference Range Interpretation Comments PTT (test code = 46.4 See_Comment H [Automated message] 29408-8) The system [employer] generated this result transmitted ref erence range: 22.5 - 3 6.0 seconds. The reference range was not used to int erpret this result as normal/abnormal . Lab Interpretation (test Abnormal code = 38049-4) [facility] 04:45:18 Test Item Value Reference Range Interpretation Comments PARTIAL THROMBOPLASTIN TIME 46.4 seconds 22.5-36.0 H (BEAKER) (test code = 760) PROTHROMBIN TIME/[id number] 04:44:13 Test Item Value Reference Range Interpretation Comments PROTIME (BEAKER) 18.3 seconds 11.9-14.2 H (test code = 759) INR (BEAKER) (test 1.54 See_Comment [Automat ed message] code = 370) The system [employer] generated this result transmitted ref erence range: <=5.90. The reference range was not used to int erpret this result as normal/abnormal . RECOMMENDED COUMADIN/WARFARIN INR THERAPY RANGESSTANDARD DOSE: 2.0 - 3.0 Includes: PROPHYLAXIS for venous thrombosis, systemic embolization; TREATMENT for venous thrombosis and/or pulmonary embolus.HIGH RISK: Target INR is 2.5-3.5 for patients with mechanical heart valves.CALCIUM, [id number] 04:42:58 Test Item Value Reference Range Interpretation Comments CALCIUM IONIZED (BEAKER) (test 1.12 mmol/L 1.12-1.27 code = 698) PH, BLOOD (BEAKER) (test code = 7.47 1810) CBC W/PLT COUNT & AUTO [id number] 04:35:30 Test Item Value Reference Range Interpretation [...] PERCENT (BEAKER) (test code = 2801) POCT-GLUCOSE [id number] 20:58:14 Test Item Value Reference Range Interpretation Comments POC-GLUCOSE METER 104 mg/dL 70-110 : TESTED A T [facility] 6720 (BEAKER) (test code = [facility], 153) 16389: Curriculum Specialist/Techni bart ID = [id number] for Co Tina diopavia POCT-GLUCOSE [id number] 17:20:16 Test Item Value Reference Range Interpretation Comments POC-GLUCOSE METER 93 mg/dL 70-110 : TESTED A T [facility] 6720 (BEAKER) (test code = [facility], 1538) 28624: Curriculum Specialist/Techni bart ID = [id number] for VÍCTOR MURILLO POCT-GLUCOSE [id number] 12:15:47 Test Item Value Reference Range Interpretation Comments POC-GLUCOSE METER 122 mg/dL 70-110 H : TESTED A T [facility] 6720 (BEAKER) (test code = [facility], 1538) 22231: Curriculum Specialist/Techni bart ID = [id number] for VÍCTOR GRIMALDO POCT-GLUCOSE [id number] 07:26:33 Test Item Value Reference Range Interpretation Comments POC-GLUCOSE METER 95 mg/dL 70-110 : TESTED A T [facility] 6720 (BEAKER) (test code = [facility], 1538) 67609: Curriculum Specialist/Techni bart ID = [id number] for VÍCTOR MURILLO RAD, CHEST, 1 VIEW, NON [id number] 07:09:00while patient is intubated or has chest tubes.Reason for exam:->Status post CV SurgeryShould thisbe performed at the bedside?->Yes [facility] : 1945 [...] 07:09:45 Reading Location: [facility] Radiology Reading Room Hepatic function [id number] 04:57:12 Test Item Value Reference Range Interpretation Comments Protein, Total (test 5.4 See_Comment L [Autom ated code = 2885-2) message] The system which generated this result transmit dante reference range : 6.0 - 8.3 gm/dL . The reference range was not u sed to interpret th is result as normal/abnormal . Albumin (test code = 2.9 g/dL 3.5-5.0 L 34556-3) Total Bilirubin (test 1.1 mg/dL 0.2-1.2 code = 1974-) Bilirubin, Direct 0.6 mg/dL 0.1-0.5 H (test code = 1967-) Alkaline Phosphatase 170 U/L 40-150 H (test code = 6768-6) AST (test code = 26 U/L 34 1920-8) ALT (test code = 43 U/L 1742-6) EMERSON (test code = EMERSON) Curriculum Specialist ID - PIAYA L Lab Interpretation Abnormal (test code = 72887-9) [facility] Center[facility] function [id number] 04:57:12 Test Item Value Reference Range Interpretation Comments Protein, Total (test 5.4 See_Comment L [Autom ated code = 2885-2) message] The system which generated this result transmit dante reference range : 6.0 - 8.3 gm/dL . The reference range was not u sed to interpret th is result as normal/abnormal . Albumin (test code = 2.9 g/dL 3.5-5.0 L 84410-2) Total Bilirubin (test 1.1 mg/dL 0.2-1.2 code = 1974-09) Bilirubin, Direct 0.6 mg/dL 0.1-0.5 H (test code = 1968-02) Alkaline Phosphatase 170 U/L 40-150 H (test code = 6768-6) AST (test code = 26 U/L 192-8) ALT (test code = 43 U/L 1742-6) EMERSON (test code = EMERSON) Curriculum Specialist ID - PIAYA L Lab Interpretation Abnormal (test code = 85839-9) [facility] Center[facility] function [id number] 04:57:12 Test Item Value Reference Range Interpretation Comments Protein, Total (test 5.4 See_Comment L [Autom ated code = 2885-2) message] The system which generated this result transmit dante reference range : 6.0 - 8.3 gm/dL . The reference range was not u sed to interpret th is result as normal/abnormal . Albumin (test code = 2.9 g/dL 3.5-5.0 L 80323-2) Total Bilirubin (test 1.1 mg/dL 0.2-1.2 code = 1975-2) Bilirubin, Direct 0.6 mg/dL 0.1-0.5 H (test code = 1968-7) Alkaline Phosphatase 170 U/L 40-150 H (test code = 6768-6) AST (test code = 26 U/L 5-34 1920-8) ALT (test code = 43 U/L 6-55 1742-6) EMERSON (test code = EMERSON) Curriculum Specialist ID Patrick BEYER L Lab Interpretation Abnormal (test code = 13821-0) [facility] CenterHEPATIC FUNCTION [id number] 04:57:12 Test Item Value Reference Range Interpretation [...] (SGPT) (BEAKER) (test code = 43 U/L -55 347) Curriculum Specialist ID Patrick BEYER [id number] 04:57:11 Test Item Value Reference Range Interpretation Comments MAGNESIUM (BEAKER) (test code = 2.0 mg/dL 1.6-2.6 627) Curriculum Specialist ID - KAYLEEN SIDVUNQZUDT5947-11-43 04:57:11 Test Item Value Reference Range Interpretation Comments PHOSPHORUS (BEAKER) (test code = 3.8 mg/dL 2.3-4.7 604) Curriculum Specialist ID - KAYLEEN LBASIC METABOLIC [id number] 04:57:10 Test Item Value Reference Range Interpretation [...] S NOT APPLICABLE FOR DIALYSIS PATIEN TS. Curriculum Specialist ID - PIAYA [id number] 04:49:45 Test Item Value Reference Range Interpretation Comments PARTIAL THROMBOPLASTIN TIME 44.9 seconds 22.5-36.0 H (BEAKER) (test code = 760) PROTHROMBIN TIME/[id number] 04:48:43 Test Item Value Reference Range Interpretation Comments PROTIME (BEAKER) 16.0 seconds 11.9-14.2 H (test code = 759) INR (BEAKER) (test 1.30 See_Comment [Automat ed message] code = 370) The system [employer] generated this result transmitted ref erence range: <=5.90. The reference range was not used to int erpret this result as normal/abnormal . RECOMMENDED COUMADIN/WARFARIN INR THERAPY RANGESSTANDARD DOSE: 2.0 - 3.0 Includes: PROPHYLAXIS for venous thrombosis, systemic embolization; TREATMENT for venous thrombosis and/or pulmonary embolus.HIGH RISK: Target INR is 2.5-3.5 for patients with mechanical heart valves.CBC W/PLT COUNT & AUTO [id number] 04:46:45 Test Item Value Reference Range Interpretation [...] PERCENT (BEAKER) (test code = 2801) CALCIUM, [id number] 04:42:09 Test Item Value Reference Range Interpretation Comments CALCIUM IONIZED (BEAKER) (test 1.11 mmol/L 1.12-1.27 L code = 698) PH, BLOOD (BEAKER) (test code = 7.48 1810) Prepare Leuko-Red [id number] 23:55:00 Test Item Value Reference Range Interpretation Comments CROSSMATCH (test code = 2264) COMPATIBLE Unit ABO (test code = A Pos 9643876) UNIT NUMBER (test code = [id number] 934-0) Status (test code = 7628129) TX_TIMEINCHART Blood Bank Product (test code RED BLOOD CELLS = 2263) PRODUCT CODE (test code = O6526V23 933-2) [facility] Center[facility] Leuko-Red [id number] 23:55:00 Test Item Value Reference Range Interpretation Comments CROSSMATCH (test code = 2264) COMPATIBLE Unit ABO (test code = A Pos 8973151) UNIT NUMBER (test code = [id number] 934-0) Status (test code = 7344744) TX_TIMEINCHART Blood Bank Product (test code RED BLOOD CELLS = 2263) PRODUCT CODE (test code = [id number] 933-2) [facility] Center[facility] Leuko-Red [id number] 23:55:00 Test Item Value Reference Range Interpretation Comments CROSSMATCH (test code = 2264) COMPATIBLE Unit ABO (test code = A Pos 0325234) UNIT NUMBER (test code = [id number] 934-0) Status (test code = 0018413) TX_TIMEINCHART Blood Bank Product (test code RED BLOOD CELLS = 2263) PRODUCT CODE (test code = X0632P71 933-2) [facility] CenterMAGNESIUM2022-01-27 21:30:13 Test Item Value Reference Range Interpretation Comments MAGNESIUM (BEAKER) (test code = 2.0 mg/dL 1.6-2.6 627) Curriculum Specialist ID - PIAYA LPOCT-GLUCOSE [id number] 21:14:24 Test Item Value Reference Range Interpretation Comments POC-GLUCOSE METER 118 mg/dL 70-110 H : TESTED A T [facility] 6720 (BEAKER) (test code = [place], 1538) [address]: Curriculum Specialist/Techni bart ID = [id number] for MORELIA WEBB BASIC METABOLIC [id number] 09:32:00 Test Item Value Reference Range Interpretation [...] S NOT APPLICABLE FOR DIALYSIS PATIEN TS. Curriculum Specialist ID - PIAYA LCBC W/PLT COUNT & AUTO [id number] 09:06:06 Test Item Value Reference Range Interpretation [...] 2D Echo W/Doppler(CW/PW/Color)2021-09-14 08:48:39Ejection FractionSLEH [facility]Do[facility](CW/PW/Color)2021-09-14 08:48:39Ejection [facility]ractionSLEH [facility] W/Doppler(CW/PW/Color) 2021-09-14 08:48:39Ejection FractionSLE ECHO [facility]ARTLAB [facility] HospitalPOCT[facility]GLUCOSE [id number] 07:35:25 Test Item Value Reference Range Interpretation Comments POC-GLUCOSE METER 91 mg/dL 70-110 : TESTED A T [facility] 6720 (BEAKER) (test code = [facility], 1538) 468[address]: Curriculum Specialist/Techni bart ID = [id number] for CINDI DAVALOS BASIC METABOLIC [id number] 06:05:56 Test Item Value Reference Range Interpretation [...] S NOT APPLICABLE FOR DIALYSIS PATIEN TS. Curriculum Specialist ID - PIAYA LHEPATIC FUNCTION [id number] 06:05:56 Test Item Value Reference Range Interpretation [...] Specimen moderately (test code = 347) hemolyzed Curriculum Specialist ID - PIAYA [id number] 06:05:55 Test Item Value Reference Range Interpretation Comments MAGNESIUM (BEAKER) 2.3 mg/dL 1.6-2.6 Specimen moderately (test code = 627) hemolyzed Curriculum Specialist ID - KAYLEEN [id number] 06:05:55 Test Item Value Reference Range Interpretation Comments PHOSPHORUS (BEAKER) 3.8 mg/dL 2.3-4.7 Specimen moderately (test code = 604) hemolyzed Curriculum Specialist ID - KAYLEEN [id number] 05:42:58 Test Item Value Reference Range Interpretation Comments PARTIAL THROMBOPLASTIN TIME 39.1 seconds 22.5-36.0 H (BEAKER) (test code = 760) PROTHROMBIN TIME/[id number] 05:42:16 Test Item Value Reference Range Interpretation Comments PROTIME (BEAKER) 14.8 seconds 11.9-14.2 H (test code = 759) INR (BEAKER) (test 1.18 See_Comment [Automat ed message] code = 370) The system [employer] generated this result transmitted ref erence range: <=5.90. The reference range was not used to int erpret this result as normal/abnormal . RECOMMENDED COUMADIN/WARFARIN INR THERAPY RANGESSTANDARD DOSE: 2.0 - 3.0 Includes: PROPHYLAXIS for venous thrombosis, systemic embolization; TREATMENT for venous thrombosis and/or pulmonary embolus.HIGH RISK: Target INR is 2.5-3.5 for patients with mechanical heart valves.CALCIUM, [id number] 05:36:36 Test Item Value Reference Range Interpretation Comments CALCIUM IONIZED (BEAKER) (test 1.07 mmol/L 1.12-1.27 L code = 698) PH, BLOOD (BEAKER) (test code = 7.42 1810) RAD, CHEST, 1 VIEW, NON [id number] 02:39:00while patient is intubated or has chest tubes.Reason for exam:->Status post CV SurgeryShould thisbe performed at the bedside?->Yes [facility] : 1945 Sex: [...] Osullivan MDReport Verified Date/Time: 09/14/2021 02:39:11 POCT-GLUCOSE [id number] 22:16:46 Test Item Value Reference Range Interpretation Comments POC-GLUCOSE METER 116 mg/dL 70-110 H : TESTED A T [facility] 6720 (BEAKER) (test code = [facility], 1538) 86527: Curriculum Specialist/Techni bart ID = [id number] for VISHAL GAINES BASIC METABOLIC [id number] 17:49:41 Test Item Value Reference Range Interpretation [...] S NOT APPLICABLE FOR DIALYSIS PATIEN TS. Curriculum Specialist ID - JACQUELINE [id number] 17:49:41 Test Item Value Reference Range Interpretation Comments MAGNESIUM (BEAKER) (test code = 2.2 mg/dL 1.6-2.6 627) Curriculum Specialist ID - JACQUELINE CPOCT-GLUCOSE [id number] 17:28:04 Test Item Value Reference Range Interpretation Comments POC-GLUCOSE METER 153 mg/dL 70-110 H : TESTED A T [facility] 6720 (BEAKER) (test code [facility], = 1538) 708[address]: Curriculum Specialist/Techni bart ID = [id number] for Ritchie h, Silvana POCT-GLUCOSE [id number] 11:25:51 Test Item Value Reference Range Interpretation Comments POC-GLUCOSE METER 122 mg/dL 70-110 H : TESTED A T [facility] 6720 (BEAKER) (test code = [facility] Srikanth [facility], 1538) [address]: Curriculum Specialist/Techni bart ID = [id number] for PH ABDOULAYE ROJAS [id number] 11:03:29 Test Item Value Reference Range Interpretation Comments MAGNESIUM (BEAKER) (test code = 2.0 mg/dL 1.6-2.6 627) Curriculum Specialist ID - JACQUELINE CBASIC METABOLIC [id number] 11:03:28 Test Item Value Reference Range Interpretation [...] S NOT APPLICABLE FOR DIALYSIS PATIEN TS. Curriculum Specialist ID - AUG CVenous doppler arm, [id number] 10:17:08Ejection FractionSLEH ECHO [facility]LAB [facility], [id number] 10:17:08Ejection FractionSLEH ECHO [facility]LAB [facility] CenterVen[facility] arm, [id number] 10:17:08Ejection FractionSLEH ECHO [facility]LAB [facility] screen, [id number] 09:38:00 Test Item Value Reference Range Interpretation Comments ABO/RH AUTOMATED (BEAKER) (test A POSITIVE code = 2260) Ab Scrn (test code = 890-4) NEGATIVE [facility] CenterType and screen, [id number] 09:38:00 Test Item Value Reference Range Interpretation Comments ABO/RH AUTOMATED (BEAKER) (test A POSITIVE code = 2260) Ab Scrn (test code = 890-4) NEGATIVE [facility] CenterType and screen, [id number] 09:38:00 Test Item Value Reference Range Interpretation Comments ABO/RH AUTOMATED (BEAKER) (test A POSITIVE code = 2260) Ab Scrn (test code = 890-4) NEGATIVE [facility] CenterRAD, CHEST, 1 VIEW, NON [id number] 08:40:00while patient is intubated or has chest tubes.Reason for exam:->Status post CV SurgeryShould thisbe performed at the bedside?->[facility] 1945 Sex: MFINAL [...] MDReport Verified Date/Time: 09/13/2021 08:40:29 Reading Location: [facility] Radiology Reading Room POCT-GLUCOSE [id number] 08:01:34 Test Item Value Reference Range Interpretation Comments POC-GLUCOSE METER 89 mg/dL 70-110 : Notified RN/MD: TESTED (BEAKER) (test code = AT [facility] [address] [place] [address]03148) [facility], [facility] 30: Curriculum Specialist/Techni bart ID = [id number] for ABDOULAYE KATZ PROTHROMBIN TIME/[id number] 04:58:25 Test Item Value Reference Range Interpretation Comments PROTIME (BEAKER) 15.6 seconds 11.9-14.2 H (test code = 759) INR (BEAKER) (test 1.26 See_Comment [Automat ed message] code = 370) The system [employer] generated this result transmitted ref erence range: <=5.90. The reference range was not used to int erpret this result as normal/abnormal . RECOMMENDED COUMADIN/WARFARIN INR THERAPY RANGESSTANDARD DOSE: 2.0 - 3.0 Includes: PROPHYLAXIS for venous thrombosis, systemic embolization; TREATMENT for venous thrombosis and/or pulmonary embolus.HIGH RISK: Target INR is 2.5-3.5 for patients with mechanical heart valves.CBC W/PLT COUNT & AUTO [id number] 03:26:57 Test Item Value Reference Range Interpretation [...] (BEAKER) (test code = 2801) BASIC METABOLIC [id number] 02:43:59 Test Item Value Reference Range Interpretation [...] is on LVAD, which may hemolyze the blood.Curriculum Specialist ID - KAYLEEN LHEPATIC FUNCTION [id number] 02:43:59 Test Item Value Reference Range Interpretation [...] Specimen moderately (test code = 347) hemolyzed Curriculum Specialist ID - PIMARIELA [id number] 02:43:58 Test Item Value Reference Range Interpretation Comments PHOSPHORUS (BEAKER) 3.1 mg/dL 2.3-4.7 Specimen moderately (test code = 604) hemolyzed Curriculum Specialist ID - KAYLEEN [id number] 02:43:57 Test Item Value Reference Range Interpretation Comments MAGNESIUM (BEAKER) 2.0 mg/dL 1.6-2.6 Specimen moderately (test code = 627) hemolyzed Curriculum Specialist ID - KAYLEEN Westbrooktor ID - KAYLEEN [id number] 02:41:16 Test Item Value Reference Range Interpretation Comments PARTIAL THROMBOPLASTIN TIME 44.3 seconds 22.5-36.0 H (BEAKER) (test code = 760) CALCIUM, [id number] 02:05:55 Test Item Value Reference Range Interpretation Comments CALCIUM IONIZED (BEAKER) (test 1.10 mmol/L 1.12-1.27 L code = 698) PH, BLOOD (BEAKER) (test code = 7.43 1810) Blood gas, [id number] 02:04:48 Test Item Value Reference Range Interpretation Comments pH, Declan (test code = 7.43 7.32-7.42 H 2746-6) pCO2, Declan (test code = 38 See_Comment L [Aut omated message] 755) The system [employer] h generated this result transmit dante reference range : 41 - 51 mm Hg. The reference range was not used to interpret this result as normal/abnormal . pO2, Declan (test code = 40 See_Comment [Auto mated message] 2535-2) The system [employer] generated this result transmit dante reference range : 25 - 40 mm Hg. The reference range was not used to interpret this result as normal/abnormal . O2 Sat, Declan (test code 76.6 % 40.0-70.0 H = 2711-0) HCO3, Declan (test code = 25 mmol/L 21-29 02308-5) Base Excess, Declan (test 0.9 mmol/L -2.0-3.0 code = 1927-3) Patient Temperature 37.0 (test code = 8310-5) FIO2 (test code = 1819) 21 Lab Interpretation Abnormal (test code = 43920-2) [facility] CenterBlood gas, [id number] 02:04:48 Test Item Value Reference Range Interpretation Comments pH, Declan (test code = 7.43 7.32-7.42 H 2746-6) pCO2, Declan (test code = 38 See_Comment L [Aut omated message] 755) The system [employer] generated this result transmit dante reference range : 41 - 51 mm Hg. The reference range was not used to interpret this result as normal/abnormal . pO2, Declan (test code = 40 See_Comment [Auto mated message] 2705-2) The system [employer] generated this result transmit dante reference range : 25 - 40 mm Hg. The reference range was not used to interpret this result as normal/abnormal . O2 Sat, Declan (test code 76.6 % 40.0-70.0 H = 2711-0) HCO3, Declan (test code = 25 mmol/L 21-29 85930-0) Base Excess, Declan (test 0.9 mmol/L -2.0-3.0 code = 1927-3) Patient Temperature 37.0 (test code = 8310-5) FIO2 (test code = 1819) 21 Lab Interpretation Abnormal (test code = 91806-9) [facility] Center[facility], [id number] 02:04:48 Test Item Value Reference Range Interpretation Comments pH, Declan (test code = 7.43 7.32-7.42 H 2746-6) pCO2, Declan (test code = 38 See_Comment L [Aut omated message] 755) The system [employer] generated this result transmit dante reference range : 41 - 51 mm Hg. The reference range was not used to interpret this result as normal/abnormal . pO2, Declan (test code = 40 See_Comment [Auto mated message] 2705-2) The system [employer] generated this result transmit dante reference range : 25 - 40 mm Hg. The reference range was not used to interpret this result as normal/abnormal . O2 Sat, Declan (test code 76.6 % 40.0-70.0 H = 2711-0) HCO3, Declan (test code = 25 mmol/L 21-29 32364-1) Base Excess, Declan (test 0.9 mmol/L -2.0-3.0 code = 1927-3) Patient Temperature 37.0 (test code = 8310-5) FIO2 (test code = 1819) 21 Lab Interpretation Abnormal (test code = 37093-2) [facility] CenterBLOOD GAS, [id number] 02:04:48 Test Item Value Reference Range Interpretation [...] (BEAKER) (test code = 1819) 21.0 POCT-GLUCOSE [id number] 22:07:43 Test Item Value Reference Range Interpretation Comments POC-GLUCOSE METER 105 mg/dL 70-110 : TESTED A T [facility] 6720 ([facility]) (test [facility] = [facility] 1538) [address]: Curriculum Specialist/Techni bart ID = [id number] for GO VISHAL LOZA POCT-GLUCOSE [id number] 16:18:37 Test Item Value Reference Range Interpretation Comments POC-GLUCOSE METER 118 mg/dL 70-110 H : Notified RN/MD: ([facility]) (test code = TESTED AT [facility] 6720 1538) [facility], [address]: Curriculum Specialist/Techni bart ID = [id number] for PH ABDOULAYE ROJAS Tissue [id number] 14:59:34 Test Item Value Reference Range Interpretation Comments Case Report (test code Surgical Pathology = 104) Report Case: [id number] Authorizing Provider: Colby Penny, Collected: 09/07/2021 12:07 PM Ordering Location: [facility] Received: 09/07/2021 03:40 PM PERIOPERATIVE SERVICES Pathologist: Ciro Diamond MD Specimen: Mitral Valve, MITRAL VALVE DIAGNOSIS (test code = [id number] 3220) KostaszNcZnRuYmpcdWMxIH tccnRmMVxlcGljOTYwMVxhb gOyZOIocZLhQ0FjcpcdPNur ZR8eXD8vpJqkqINuoDPxAJX bDiSar4afl220wLWtm3apUV TZgszqaQg1aQxrD56ir0G0V ivkW10brNTcQLE4OSEmRZOf qOZgCOPpPLI4LFLmfVZtA2z iUYQzDR0ykizwYIviDMknZP QnqWL2WIWnjBCoG7WtPTPcL DjkRQGuosx3MqVtVe4dwCPe eTcyMFxwYXJkXHBsYWluXGZ zMjAgTUlUUkFMIFZBTFZFLC LUYXMXE9dPCxevlEMvJDNXC ZUCONQHNMULQ6BLKPHEHNCT TLFUD3KTHODRBYwMGXWEDKV ZX5JOGPTXXLKQY9IXRHOVYK rBNFDYF6YFWB2NDIFftw17Q BQ5SmBpk5I6VMQ3UCYtMBVa n3nbHHHzuOBvQnEuAuPmMlA oIyfwuGDzUEAmCxXfw7foh7 08fEHuz8quGGWcTtL5tDVpS CQmzNTjN670BLWiYBssy9gc h5HjZJTxwIZta6I2NLOUeqc fwAk8fHtgO90ga0F9KgtxT5 tnOEDpRDVzL4QvKL1tPSUvF uq2UWT8YFZ3RKCgXODdZ3Qh BH2eBKLtjEYcKHs0y0qusKi kCGBqGVY6k5wsAAfadhLnHG 2uzo3wcUq7y2oakxBzDIJnV PZqcPFQBNYuC0UmuLeiPt1f fVi9lFltMctoZPV9Lul1MJ8 rke69dql2hBzsRFRhzwxuPt K0TSpxPJTbboqaZNs9ZRmjH BVohEO1MQAysRQyX2FaIXUg XU1fgul8RHR2SIftUJSjRoS 9WDBjmSXfMNAmtInsVNhgu3 19INU7PgHkVE3vW3Hxx2W8e N7rjDRoZHHtbRMhHzUkHWOh fq7fkIVyEZsny5VlCLI4yjL 6nRVluMVpFDGgDbS3DGktWB 1eoc41HPLlTUI0kv8sfHRzb RdnnfVabFOcSBkbO0IbKIOb b223RGFuN1DwKLPde1V1sqN nNyFrAKIifCZ2ofD4PHDaUY 1bblfln4tbDQgmSFxdBXNjj oL8gzQ4UJOezOAxR9FfbV3q QPVsFH8mdaxbr3vnMRR5KNi tKVNrPYY7FxHpKCJab4Aatb e1MjHio2JbjZFwQWmoF10tg 061HXPnkdBsM8attIZtmgkh uJSjrqedTUglvcH5EGStLJv vkrrdNYTiOSzyV3qxSlXiIH MzkMluKFnus7IpPFUwFKDcY tZkiGKgRPDwOai2KLPgqQBp DSJbHlQsQ8sllvhjGbWWPDY bk0evY1lsuCSJeKRqS6PeST hvbmUgTGluZTogNzEzLTYxN D29OGC1XLWlhy20 CPT Code(s) (test code n7eigGNjAUHrvII4HkCoEGJ = 3357) lb3oja8WnoDBjyAWxMAzjyM YiuuSwph33yJK6uM71QY1bT RDpBtP3MPGavoR6Pke1KEBr NNTozVIjZ014v6jtu5spmiX uuTT8qKdjZLUtyemcVlI0KZ pgEMRxgutaVJu3NAjwYKBny SR9QJNigWUkQ6DxMUDiSV5x qzz3KUJ9KBuwHGHfVrV9YLU ukBKxXEZpjPadWHgzz827BL B9OxQkIZDxtgXruWlftL0kW uInANN8QNTcDTkoAYP9 CLINICAL HISTORY (test h4ojvKEyYIFwmFO0FbRpDXI code = 3356) oo3qhy3VnfZKznMZyZBmwlR WmahPndf84nJB0nT59ZU7zJ AXgXmG6MLIbocB3Isx0WPHy DBCrePAmV475n4hxc6zdnnM gnBM7aFcwBORlbbgvWbQ5WU qiGFDgqvkyGNr0FZowRFVcj WX0QEMemVObA6HjFUTwJH8w tfq7KLJ8UDduVOObVaE2TXH csVTkTTIhkZlqWUbfz840BK I8WfYqPINtzmClkDiudB9nI nMyMCBBdHJpYWwgZmlicmls zTO7rB6hASJweQTlRUrirkT gnvVbiJ3ggENsiNKkVV7goO xwYXJ9 SPECIMEN SOURCE (test l0ybiZHrORCnvGY7EeAjRLU code = 3377) li6pyo4HrbCSaaWZnLWpvoP QffpXmvs99zXT8qX80MO2dH VOqLvM9LSTixmI6Yhw6KYXw NSIaiBJuZ778l1hsy1ukepS ezDH8eYxePSFncsyuGwG9KD afOKYmqpjiVWc8XXqpXAJpq RT4QJAjgZPwR1IvLMChJD1v fuy1TSH2ZWtiAQYlYeA4UNT fpPEiRAExqGcpVNucv789GJ O3NdLuMVZhjbAanDnezJ9kN nMyMCBNaXRyYWwgdmFsdmVc cGFyfQ== GROSS DESCRIPTION y4annRBoQFZhqKFvDwCnUMR (test code = 3366) zRTGcr3caZDMjyOBgQiKpGo NcZnRuYmpcdWMxXGRlZmYwe 7ylz101uSVqo3irCTQdCgZ0 cZDgRNBxiTObG176o0czg9k ecpZrqSW9OVTxMWK7KRxagg MhbtY3NNauwHMcLhO4LOflx mLjBEinlmLzozFsPts9PKDi W164DQX0qFpqf9qrQGZ2SIT mWGNhFqDhIs7ooMPxR818FZ GmMHJGALUudOp7LRHqomMib kXgiQRCj243S020q5njMAJk umVghJpHebbfd7yrK257JRM hcGVydzEyMjQwXHBhcGVyaD M9AWEpCX6psooiVjUtEZ0xj ifcKvLrMG9valg7LcDtEZ5m cmdiNzIwXGhlYWRlcnkwXGZ qr4UzbrqyZI0jG6Umu2H9xG 9maXRcZGVmdGFiNzIwXGZvc h4uwSYkWGird7AmUSF5sbU4 tYWrnUGvXYQeSY99Ikesh3I fRjzdKCI2WLWjtsDpb3Qka3 vvTiSeukHhL6grX8HnHCVkQ QOdPZHsKuIfgvCer6Sej7Aj rEXitLg1l3urQVGcLITlwQw dx5yeMQH8MLJdN4V1hNMsg5 jqNUcsKYVfaAV9okcxRPijD ZBlxpD8pjnqGYihVOOarNS5 isupBElsLSNnIvH7xtnrHTb uUVRzSLJ1AYngj888YRJ2CG xzYmtwYWdlXHBnbmNvbnRcc GduZGVjXHBsYWluXHBsYWlu XGYwXGZzMjRccWxccGxhaW5 zEtPsLuBwECnpBL0gWHAyD9 uidFByIEPfBOEqD4khDiXzc U4aeCnrBWgfypCuCZEyJNQe M7PdyoXzQLSbYDFwRDogOhH rWUBzr3h9nZQ7yHWkpAQ0kZ KypQkuMaIsJF3gzGFyZS3kX UewNKdniaKbj7OgIL56cFVo tkZfrxKkTz6unQTuwQA2TTf 2ZSIgaXMgYSAzLjcgeCAzLj JynYTsXwJzK58cyEHeFQ7yp SzcldPhw9U5uN3oUX9zCJec sCziec75lWf2QPvqa3uiO4d 9dDejkTomO1zwxgYlWJVuzK Y8mYXcOLIqe4O8IV9sSYNpV AQaPRyiTBGpe92qhLbcLE1i wL94FZ9rXJX0gCRhdZBzGVK 9cHffk3OzWHSkL0wwiyAzYP I1XZ9vaK9dKVBvBUZAhVRjd 7JuC3jaOA9fsGFgr1DbpXWf hJeup7FqqZrtxkEsMYYnXZJ ryhTkuv9kecDtLUKvr62iBO ZtVNwhVF69lQXqZDKqCYLCY EDeGXHotuNmdRb0GUXdVSA7 zX5vakZyieFdw8ZqiCc9uXZ kIGluIEExLlxwYXJccGFyIE OpGTndYISrR3WzaN3dCP2MI mpoHSWdYNHBC3PnA19ieXFo fQ== MICROSCOPIC k9aueWWzYDJuzHD9EtKpBZY DESCRIPTION (test code cs1xeu1LrwXRuoTGeMLazcM = 3371) VkgqEorx94tNN2sD73TC7xO TNyErX1HXFunqP6Rsi3FTSk KPCjlAPbO018z2uak3hxtfO wwRA2xVpgPUPetplyGmE1YJ ikDLMpjzasECp4DOxrDBHcn GD3WFXfhWNsD9JdZTZxHQ8x nhp3HEF9NYqsWHEfMgB2MMD yuGBiDGChyHjzIFshi943FS F5SsQzIWUrbmUopEuxfQ0sM lAbAWPTWLYyz0KyHGWpQNLx cn0= Gross assessment was [facility] performed at ([facility], code = 2777) Department of Pathology, [address] [place] [address], Technical component [facility] was performed at ([facility], code = 2778) Department of Pathology, [address] [place] [address], Professional component [facility] was performed at ([facility], code = 2779) Department of Pathology, [address] [place], [place] [address], [facility] [id number] 14:59:34 Test Item Value Reference Range Interpretation Comments Case Report (test code Surgical Pathology = 104) Report Case: [id number] Authorizing Provider: Colby Penny, Collected: 09/07/2021 12:07 PM Ordering Location: [facility] Received: 09/07/2021 03:40 PM PERIOPERATIVE SERVICES Pathologist: Ciro Diamond MD Specimen: Mitral Valve, MITRAL VALVE DIAGNOSIS (test code = i8ffrPMaSDTjg1dsOASxeYZ 3220) uZzEwMzNcZnRuYmpcdWMxIH tccnRmMVxlcGljOTYwMVxhb zJwCKAktBEcG2TigahpALew GW3uDG7rzFmfjOOgtONyWKW uRwQzz9faq985fLCdg3jcZZ KQvzsjvBp5cWkkP51ug6Y9T slfE55pjKPjAGR1GZMeDZIg qCItFMRyMOO3EVDbkDGkU8v sFYEaBL0miutaEQqcKTjuJP JsxVI9THOcyXXkG1FhNGJyA GhjQRDivku1FtDsTk4gmFJe eTcyMFxwYXJkXHBsYWluXGZ zMjAgTUlUUkFMIFZBTFZFLC WUMDRFE0xVWznxjLSvTBRFD OUSYRCYUSDZM8GHSPDWEEWT WOFMY6QKTPOJVYlRBAHBFFV PQ8EJNLMOUSNMC8YEUWBJKB lSJDYPI7BQCF6OVONmlq87K TM3NlWkw6X9GWX4AWCtIPRj o7zqOAWnvRRiSnBkLpHyBeV qYvgrnIJbBWWnMfUol3jyu4 55uJPkw3ccYIEpZhN1aYTtH NFhxTSdY436AGYeWAyev5zf n6UdSZPfgYIzc3M5DVVZxec smQe0xKmjU98sy1Y7OyfbW6 akTLGyMIZjH5HzRQ6vHYSiR wt4EHM6TYZ0NEBiDVWkU4Xg RD0pKHLekEMoTVf8c9fztWy zFBEzGCA8i2zbPEcrjaYkVW 1dfd0zxRe7i8qihgSaVQOpJ OQodYDLDFGsA2ZriYhnHn4f eJk3xLnqZvduIDQ6Jic7KL5 epc10flr5cKqpFHYdmwlbAb Y9ZOzhEFSvwkeaVCe4PKhnS OLkjVU9JATipELdJ2RiRVBf UT9mpyq9HCJ0YEuoKBTvBtC 9XOLxcHWwFZQafKvgPFtnv2 20HFH3HdSxIQ6vJ0Qor2A7w X6iyLGiPPDiwRMcScHvNXLa dt2fdWTuPXqfx9EwPKP6beR 0yHScvNYcTPLgEqU4TYssKC 7cce49PDNxYGE1rt5naSQjk VvyjzGzyZQvMYgmZ1RtGPXm a713BGDaU4YzTIZkj3G6lzP sAbYpHACvmLP8cxX4MZPgJK 9mmwrcl5vhLTtsJZdiPSIhz cU9xdV1FSLlcMSqZ4EbqL2k GNBoWK1rdxskd9wzPIS6WRb jWKQnQLQ2ImCnVTSah8Fwdg h5InSpw2DdwPBqKMvsI52lx 477KIYrulPcP0pnkWIujjar qQCmiiygAPxqikZ7QHHfJGv oygqeRTMsMIwqL0feOaAhON IxgRrnPCioh1VjKUVmLOQhM zTqgFSfVMTiQfw6RBXycPNc ICXfUaCnZ9sgeypkFuASIKQ am6zoW8vdpBNSeVDbL2EaPK hvbmUgTGluZTogNzEzLTYxN O88PSC6HWYzaq74 CPT Code(s) (test code u0lbyVLnXRVivDW9EePrWST = 3357) dw4ine8OlgWNpjKAzDOrqhY FppdKdxe00rMG7qE45NB7wN IIpSgJ2PVAlezO4Alc0IRUv JLZvzFBpC515h5lkc9znakD ecJQ4nOikLEFvtjfvHnP5QF rgUGIgargmMLz1AChuYFKpn ZI9GCSxdHVwU0VySHAxDU4b blz9WXC9ZLstLEKxOjJ6MLI lrPHfHEVzvFtyMPizp700FL S3GqTgPXIydlIfmApymU4oO zVwAAB0PUBsGIzvKCY5 CLINICAL HISTORY (test r4pobLBzHASisVE9EnLfHAU code = 3356) za4rxs6MyyHEqrNCwQMowxA LiyuYwbx68fAW3oU07QH1vX MZwHlI3VEFruuV1Xzz7FYJm SVCxaDWrZ561g5nzc5hbslR keDW3sHbfXLTnjtjhUvV6RX jnISDdhvhkIFk6WChzPGBya IT9LNLbcPYcX6OiJGGkPO3e cgc9DDD6BImvKMAlSmZ4CJZ jmKQxZHWzvImvKPgmj700LL D2PoAqZOYyboFhqIhnrO2rQ nMyMCBBdHJpYWwgZmlicmls mLM8pM7pWCDqqMYaRYkelwE ggfGajN4msDSrhMPpBS5ylB xwYXJ9 SPECIMEN SOURCE (test x5zkyJEvRGKafHI8HyPzNYB code = 3377) ib4kxc7WdwIKygBOvDEuwtU GonzJqiy94mLU7lC80QV7hE HGvKhM7OSXwixV0Prb2AUQh QOUtgEXcP716w2lzk6dzivP rdSD9zXrsMMKtcsxoTqT9WV dfJLZcpopzUQx0WEryPOWru DC5ENZkeYHsH3BeXMHoID8y gic3AKL6TCvsBPOoMfO9SGC aoXShLANjuOzoMAafb748AN U6FmCjZPYcrkMirBephU2pV nMyMCBNaXRyYWwgdmFsdmVc cGFyfQ== GROSS DESCRIPTION x2ruqHHpSKJfdNBnYaFbNJX (test code = 3366) lZSNxu4xlSTTzyMEmLwGcGb NcZnRuYmpcdWMxXGRlZmYwe 0wst892yDWok9eiREBkAoN4 kJSjIWNfzWKyS490z7pdz3q snjIukPL7NUAcLXF7RMvelt GsxuA3CLbosNSiTiC3OXpzi vPbIBldqgUouzJdXoh2SWUj X030RVM1wFddi7hiVPG4UHI hQEPyVpBqIw0fbORqR742LO UyPQMMUUJtqVk5UIYredTfy zTtlMVGn768N822s9nmXZNi uyOuySkSzlixw7jiH535DYG hcGVydzEyMjQwXHBhcGVyaD F6LRIdBY6qliiyKcFqNB3qq elzFzZrBZ2rdon1JmHbNV6w cmdiNzIwXGhlYWRlcnkwXGZ yu3SohqwsZT6fQ7Lww0Z9zW 9maXRcZGVmdGFiNzIwXGZvc z7xgUBiNCayw6TzFRT5xdO6 dMEioBAbSXOeYZ53Xqzjm3X jRrdkVGM4PBWtxtHxt1Dvh4 tzLoFrjoTpF8weB2BvHKIlS VGpXYQcHfZrnmTgl3Clg7Ay sWUejWn9a2rtWQNeCFJlcDu ci1bjGPW1SSSiB3D5cYPuf2 saGBrlPOXbjWQ0eqvmBGzyW YJvozL6vktkZUqaZIRvrHL1 rgknUTacURYyEgG3iaqoAHf vQOVfXAG3YAxzk552NYB3YP xzYmtwYWdlXHBnbmNvbnRcc GduZGVjXHBsYWluXHBsYWlu XGYwXGZzMjRccWxccGxhaW5 sGqYmQoBwGLmkSU2vJJSnV5 hqpQTaBUCwAQQdO5rdXdGvd N2fgRveXMetdtQhCLHoPBCk W7OgkaFsLVZtBEXkQQngGtB eDBGhm8r6tWE9hRYogNV1rK BzaMvxYkMgDH3tzANeJH0nB PgkSLwtikJty2GyAT41vUZc wpZoqdRcFs4naECzgEJ0FUg 2ZSIgaXMgYSAzLjcgeCAzLj TvaOGrQhNrA17jjNPeNP5kd HmvleAzy7H0yL3eNO1aARac vObwup44lNp7TRxzt4trT7e 0vNsepNdmR5amscFtUUCpnP N3nEByJKYzk1N4EB7dRFJqC WXeVYrvBDWas25sqJcuII8z tY49UF6qECK0jGRisFDjQWS 7nVvvr0GlIKRxC6nrhnNxNP E5QQ5buO0bHBLdZOJYfNDgd 3DbJ8tjYU3tsRDzt4WziOIj tUfwh3AftMzaygBrKZGbJTJ oehXwpq6bvhMaFHXnu44pDZ KfJLqqIN71hYBaQFZcJDFDT SPlAFNpblLvvSi3LQAlBFI2 yB2npnEtdaIch6AsbKb5sYY kIGluIEExLlxwYXJccGFyIE SaZVojBUAeK1GrmA4dDP7RQ mfiANSfUPYNU8NpV62nuOYk fQ== MICROSCOPIC r2jrzKYyETXcmCP1FzQfWQO DESCRIPTION (test code fk0ixw3EfqNMqhWXoUOgwdE = 3371) RyzjValw29nFT3aB50FZ8vJ BWhBsR9AZDyfyC5Kkv0SUCy RSMhsZVzL087y9old4kjozH syKF4dMchEESsnitkEaR8AL dyMXNwysnoRKh7GMhkGONjn MX4CWOvaRYcC6PhUEMrWM0c eiy3QJG9BInlGVTmNeE5TDD otQLnYDIhlFygIYxag304CG F2OiEuKOIdwzLgxYbvoM1xT lDbHKCRWFDrr9IlGMMpIILb cn0= Gross assessment was [facility] performed at ([facility], code = 2777) Department of Pathology, [address] [place] [address], [place] [address], Technical component [facility] was performed at ([facility], code = 2778) Department of Pathology, [address] [place] [address], Professional component [facility] was performed at ([facility], code = 2779) Department of Pathology, [address] [place] [address], [facility] [id number] 14:59:34 Test Item Value Reference Range Interpretation Comments Case Report (test code Surgical Pathology = 104) Report Case: [id number] Authorizing Provider: Colby Penny, Collected: 09/07/2021 12:07 PM Ordering Location: [facility] Received: 09/07/2021 03:40 PM PERIOPERATIVE SERVICES Pathologist: Ciro Diamond MD Specimen: Mitral Valve, MITRAL VALVE DIAGNOSIS (test code = i2pzzILgQFStl4fbGYQekQB 3220) uZzEwMzNcZnRuYmpcdWMxIH tccnRmMVxlcGljOTYwMVxhb oChPGOsdXHcX5EgbqokGTkf OY0dFH0ytNcbgHQhcYIfZLX bWsZie9nqq739xEQht3phPL ZDeablrWp7eJbdS77th0W0K pbrG87dcYLsHJO0ABVdGOJy tZAyVEPiSEG2OLEmiXMoL4j nVZDoRM6psbhlEByhHOzcGI GhtNL5WDFpsCVlX6DrAVZcE ZnjFCKqjzn3JzDnDl2mcYBf eTcyMFxwYXJkXHBsYWluXGZ zMjAgTUlUUkFMIFZBTFZFLC VLGJSBS3hBDofsdONmVGXUZ HEDCQVCYTELP7PALGREXTRN DFPUT5HOJWWAAVtAFSYOROX YW7NHWCEAAYBFQ9TLZMJTIO eKEQYLX8PKQJ4MPJOgup90M MF0DyVei3L0NJD6CWBmEAYo c8drCEUdlORjZvFhLbSqYlX oHypvlSHvCNTlRkGae9qsv4 88jGGxz8yvWXXxLjO1qYNkU PWtaCLmX898ERKaJMmlh7qv m1VeXCYbgBPpq4M8YOOKeeu clXt0uOttM55ka8V3JgmgC6 vnBMGrOKJiX5RxYT8nXCVzR wi1QJE2UAY5PCSrYLEiL8Dj QM0qWTJlcHPdNMv0s7diuVp wNIKuMIH0i8rpRFntzbWuWM 8jiq0ikFf1f4mkjoBgMMOeP SDrrTYSETBiG9XmrOceKi9w nFi6mVwbFwioJXK4Yee7IQ4 adi73qxy9yCpeDWBrodrpFi S9DCinROUpgmgrQSv7GIvvO VShuXF8QKUenWBoT3MnDDPx ND1xlpg8YMN4MOhsIUIbIrL 4JKPtjDIdYDZsoUsaXCaqt0 46ENR5YsJsLY6wE7Kbb8E9x P4joBNaFTEroUMeQfOfSCHq td0hsBPfRTicb5RiZIR4yvM 4nUDdtOTlSWOnEjS3OSbhZE 8deg49UBAiWZZ1il0wbUFha BnnruMblMWkNMbrC9AlVKEu y581UTWeA8ZbSVFfc5T2uqI kVfNmZRSbdYC8buJ5FKNfCA 0ieqnog8fuLOipXMmkDBMrn cB5gkO6SPRuqKMaH6TriK1d OCIrUD3vzljvg1duTFC6BGk fWRWmMYT7UfQrSLFva4Bzww o6VrMay0VbwAKzNTtpO03pa 953JNZubzUsK7qrfGDntgqp mRWmwnugFAczdkU6IKVdTJc fouqaKQYtWAkvK8gqRpXhHK CioNobBQjwz4VlCYUbEEMwP jKsvERiGENvPds4VZBxhTNi XWPmJcHqP6ytstorZpWYBRM td0kdT1bbaBAZaPWsY5JkEM hvbmUgTGluZTogNzEzLTYxN O54CEV9ARJyty48 CPT Code(s) (test code g1nbgLAwPEJicOH0MdOtTEB = 3357) zb7ekg5NywBMnwUQlNKpqyO ZzmxQgch08aFK7zF27VY1fW CWfGnB6GPLdyzJ7Bfn1DFHo WMCckBPhQ852p3fdb7vndzC htQL8jMntQIRzdoisPoB3IT ofPGKvahfsMOu6XSjjISFkp DP0GDCeuPAxS1NtWEMvLP4w yxw1ZBI6GEldSNLmPiX5CAX lxFDcBZJtpCvkFDqsu899MB N5KtUvMQIiooHzzOdqsQ2oX yCfCMU6UNDhPPqxWAP9 CLINICAL HISTORY (test t0ydbQZdWQIbiKF5IoQoKDA code = 3356) sb9hcg4AqfNAqkMYmDHewjK XqgrAkzl85xJP7qX87YE6oO FSgCtF8ENTfpkR8Pej7MXLn VZBogXXjE665k3muq5slabR jkUE3cWlwCUYelrlkSiW4KM smCNFhymhxLXq7MHkeRFDbb WH1ZJJqiWVtH8VdHLPaJM4t zcp8SAY7XMurSQHvDdB9QZU ybHLfKPSxuMtdYZsvn287CX O9DpRjQJYvmkQrwJjkfQ5uM nMyMCBBdHJpYWwgZmlicmls fOS0dX4uQJWoxPDuSRgnwuA oqfWxmC0ncQNmoNWsPU3pzN xwYXJ9 SPECIMEN SOURCE (test u2ifnGJmAKNlmCX7VsIyWCO code = 3377) uo3ods5EnlUNhzGFdZHhxqY UclhUgln23jMH1eF32PS1vK KVlCmN5NJXptyW1Frv5OKHv GAQacIRgE808k9xma4vqvsG vrSD9uTegOTZburvkGeC6VG lgDUDhqhopPQc0CLrjLEDxu RO1SWDekVHnN6OpIPFwQB1x uuj4TFX0ICccMHFnVnN0USX ugOPyGARyiLcyVYiuo787QE H2FoXhHTYpghFleYxcsV0eH nMyMCBNaXRyYWwgdmFsdmVc cGFyfQ== GROSS DESCRIPTION r4kseKXoJONbvCDgKsEiLHT (test code = 3366) jSWVzf9ieWRXopOMeIzXcRa NcZnRuYmpcdWMxXGRlZmYwe 1osf911jFCxp0onIESoJhI0 jBZoUEHpnISqM815v5axc4z vyvMizGO5WFLrOZR1NHncfq TeezN5LYkulIStIpH5SFskl tIfPYcntbMfvfUePtj8DTFz U976YGQ0fUcfu6xnMIG3OYV zIWNfKyWpKo8vbWXrH427YA HcBKOOVGGyvVa5EUZngyHhc xIotSLMk286H351b9xtDXTt ktJgrAiGtorsu9vhZ862MZV hcGVydzEyMjQwXHBhcGVyaD T3PYZxWJ4reawqUkFdTV3fw oqmIjQbPH0khbx2OtMrUI5m cmdiNzIwXGhlYWRlcnkwXGZ aj3TfqqnvFT4kY7Fmz0P0dX 9maXRcZGVmdGFiNzIwXGZvc p2xhMQcFJcal8PrCVJ0vvR4 fLEnhLPuKSToPH54Smbkc0B eMescTDX1WCHlfvBjv1Pyu1 kxNyHhhgGbE8jqI9UlOZGzC XOqGSFpAeBpjyEhy0Itn1Rx uTObfQt0p4wrNMAeWVZbzDs tv3alITP3JTTqP4L6kQRth8 eoEKzlKKRgwDT0cyeaDXydV SSfhiP8jqmcLAmdSSHblMS9 tmpsUYbrSPGiOcX6cnvqUIs nDHDpRFR2VRwey915QTM2OO xzYmtwYWdlXHBnbmNvbnRcc GduZGVjXHBsYWluXHBsYWlu XGYwXGZzMjRccWxccGxhaW5 oXrLfVeAzQWsxNT1oSUVuM5 hkqWWrDCIiZZDcY7ixIdCfb A2zuGdzUVhskkIkMAUrMBBw N0HdahFpYRGqBMPwBUciHjZ sICAqz7e1fWO5bRGlpOY6oO AhaDjfEhSvPG0ceEVqRJ8hB TcbOJsuhfIma8PgJA27sHNt mpCuuoRrZn3vgQUhlBQ7OBx 2ZSIgaXMgYSAzLjcgeCAzLj DoxDLyOzEwH44usORhGY0iz GqtzuYlk8F1iT8nFU4xDJon wCrijw04lOk9DIsaj7rqO9h 9gLhhtWsaQ3hmvkLzPWMwiK I9hFPpLCOlt2W4BO1qWMKwS HUlHBotDEXvp72uvRapUX4l aD19UH8mUOV0lMJliPApPOF 2lFfag8RnEOMoE5vojeOwXS C9ZX3zaD2iGLOaQPDVqBWme 0XmZ3cfXY0jiTLpg2JhqFOx qIdie8RzuPlcacYkHFNiRRY opqMjlw4dxlSmAOPyz30wWZ QdCAllAG82qLKdQQIhZDWBI WXwYDXzplHmtIp3OQZgMIY4 iF1wwvYwclOvf9PcfXv5lTP kIGluIEExLlxwYXJccGFyIE OpEHbkSYOoV9YdjZ3fPR4MQ qxxDNScEGNTI1AzZ06wsMJj fQ== MICROSCOPIC s1nneFFoEQLquLL1RgLyKKN DESCRIPTION (test code rp9gls1OimCAdqZElAHqqoA = 3371) CdtiSiyj44oEL4rF31FB8bF JQfSkB4IPMibgV8Yfo0LAMq TUVhnGAeO898u7dhx2csymD bjNB4fTaxSHOyywbvSoT2IH mtWCMafpguDEf0KSllVQEiy US7AOCbeHPmQ0WdXUCkZA6f hkz1SVX9SLggHWEeHiR4DSX ueMAdVCVauWflIHwkq829BM Y2IgJjOARbueStzIcvyD9jW xSwZEFBFUWnt2GpBVWvEHNa cn0= Gross assessment was [facility] performed at ([facility], code = 2777) Department of Pathology, [address] [place] [address], Technical component [facility] was performed at ([facility], code = 2778) Department of Pathology, [address] [place] [address], Professional component [facility] was performed at ([facility], code = 2779) Department of Pathology, [address] [place] [address], [facility] Center[facility] [id number] 14:59:34Surgical Pathology Report Case: [id number] Authorizing Provider: Colby Penny, Collected: 09/07/2021 12:07 PM Ordering Location: [facility] Received: 09/07/2021 03:40 PM PERIOPERATIVE SERVICES Pathologist: Ciro Diamond MD Specimen: Mitral Valve, MITRAL VALVE MITRAL VALVE, EXCISION:VALVULAR TISSUE WITH DEGENERATIVE CHANGES AND FOCAL CALCIFICATION Signing Pathologist DirectPhone Line: [phone] signed by Ciro Diamond MD on 09/12/2021 at 2:59 [id number] fibrillation, mitral valve insufficiencyMitral valveA. Received fresh labeled with the patient's name, medical record number and "mitral valve" is a 3.7 x 3.4 x 0.1 cm triangular portion of yellow-white, slightly thickened valvular tissue. There is a small amount of attached, thickened chordae tendineae. The specimen is serially sectioned and no gross lesion are identified. Funeral Service Practitioner/Embalmer sections are submitted in A1.SASHA Graf, PA (ASCP)cmPerformed.[facility], Department of Pathology, [address] [place] [address], [facility], [facility], [address] [place] [address], [facility], Department of Pathology, [address] [place] [address], MXUYYGM, [id number] 13:07:17 Test Item Value Reference Range Interpretation Comments CALCIUM IONIZED (BEAKER) (test 1.12 mmol/L 1.12-1.27 code = 698) PH, BLOOD (BEAKER) (test code = 7.49 1810) [id number] 13:05:22 Test Item Value Reference Range Interpretation Comments Potassium (test code = 4.1 meq/L 3.5-5.1 Speci men 2823-3) slightly hemolyzed EMERSON (test code = EMERSON) Curriculum Specialist ID - MARZENA M Lab Interpretation Normal (test code = 11126-3) [facility] Center[facility]assium20[facility]-01-[facility] 13:05:22 Test Item Value Reference Range Interpretation Comments Potassium (test code = 4.1 meq/L 3.5-5.1 Speci men 2823-3) slightly hemolyzed EMERSON (test code = EMERSON) Curriculum Specialist ID - MARZENA M Lab Interpretation Normal (test code = 59693-9) [facility] Center[facility]assium2022-01-[facility] 13:05:22 Test Item Value Reference Range Interpretation Comments Potassium (test code = 4.1 meq/L 3.5-5.1 Speci men 2823-3) slightly hemolyzed EMERSON (test code = EMERSON) Curriculum Specialist ID - MARZENA M Lab Interpretation Normal (test code = 30826-8) [facility] Center[facility]OT[facility]SIUM2022-01-25 13:05:22 Test Item Value Reference Range Interpretation Comments POTASSIUM (BEAKER) 4.1 meq/L 3.5-5.1 Specimen slightly (test code = 379) hemolyzed Curriculum Specialist ID - MARZENA [id number] 13:05:21 Test Item Value Reference Range Interpretation Comments MAGNESIUM (BEAKER) 2.2 mg/dL 1.6-2.6 Specimen slightly (test code = 627) hemolyzed Curriculum Specialist ID - MARZENA [id number] 13:05:21 Test Item Value Reference Range Interpretation Comments PHOSPHORUS (BEAKER) 2.6 mg/dL 2.3-4.7 Specimen slightly (test code = 604) hemolyzed Curriculum Specialist ID - MARZENA MPOCT-GLUCOSE [id number] 11:29:26 Test Item Value Reference Range Interpretation Comments POC-GLUCOSE METER 126 mg/dL 70-110 H : Notified RN/MD: (BRAXTON) (test code = TESTED AT [place] [address]) [facility], [address]: Curriculum Specialist/Techni bart ID = [id number] for PH INMEÑO ABDOULAYE POCT-GLUCOSE [id number] 08:03:15 Test Item Value Reference Range Interpretation Comments POC-GLUCOSE METER 98 mg/dL 70-110 : Notified RN/MD: TESTED (BRAXTON) (test code = AT [facility] [address] [facility] 15[address]) [facility], [address]: Curriculum Specialist/Techni bart ID = [id number] for PHIN ISABDOULAYE DUGGAN Venous doppler arm, [id number] 06:52:54Ejection FractionSLEH ECHO HEARTLAB [facility] Center[facility], [id number] 06:52:54Ejection FractionSLEH ECHO HEARTLAB [facility] CenterVen[facility] arm, [id number] 06:52:54Ejection FractionSLEH ECHO [facility]ARTLAB [facility] 1 [facility]IEW, NON DEPT 2021-09-12 06:05:00while patient is intubated or has chest tubes.Reason for exam:->Status post CV SurgeryShould thisbe performed at the bedside?->[facility] : 1945 Sex: MFINAL [...] Addition al findings: None. Signed: Halley Osullivan Verified Date/Time: 09/12/2021 06:05:44 TIC FUNCTION [id number] 04:15:05 Test Item Value Reference Range Interpretation Comments TOTAL PROTEIN (ELINAAKER) (test code = 5.1 gm/dL 6.0-8.3 L 770) ALBUMIN (BRAXTON) (test code = 1145) 3.0 g/dL 3.5-5.0 L BILIRUBIN TOTAL (BEAKER) (test code 1.5 mg/dL 0.2-1.2 H = 377) BILIRUBIN DIRECT (BEAKER) (test 1.1 mg/dL 0.1-0.5 H code = 706) ALKALINE PHOSPHATASE (BEAKER) (test 136 U/L 40-150 code = 346) AST (SGOT) (BEAKER) (test code = 42 U/L 5-34 H 353) ALT (SGPT) (BEAKER) (test code = 46 U/L 6-55 347) Curriculum Specialist ID - MARZENA [id number] 04:15:04 Test Item Value Reference Range Interpretation Comments MAGNESIUM (BEAKER) (test code = 2.4 mg/dL 1.6-2.6 627) Curriculum Specialist ID - MARZENA [id number] 04:15:04 Test Item Value Reference Range Interpretation Comments PHOSPHORUS (BEAKER) (test code = 3.3 mg/dL 2.3-4.7 604) Curriculum Specialist ID - MARZENA MBASIC METABOLIC [id number] 04:15:03 Test Item Value Reference Range Interpretation [...] S NOT APPLICABLE FOR DIALYSIS PATIEN TS. Curriculum Specialist ID - MARZENA MPT/[id number] 04:11:05 Test Item Value Reference Interpretation Comments [...] (test code = 47.6 See_Comment H [Automated 96064-7) message] The system which generated this result [...] valves. Lab Interpretation Abnormal (test code = 08457-5) [facility] CenterPT/[id number] 04:11:05 Test Item Value Reference Interpretation Comments [...] (test code = 47.6 See_Comment H [Automated 80452-2) message] The system which generated this result transmitted reference range : 22.5 - 36.0 seconds. The reference range was not used to interpret this result as normal/abnormal . EMERSON (test code = RECOMMENDED MEERSON) COUMADIN/WARFARIN INR THERAPY RANGESSTANDARD DOSE: 2.0 - 3.0 Includes: PROPHYLAXIS for venous thrombosis, systemic embolization; TREATMENT for venous thrombosis and/or pulmonary embolus.HIGH RISK: Target INR is 2.5-3.5 for patients with mechanical heart valves. Lab Interpretation Abnormal (test code = 49682-7) [facility] CenterPT/[id number] 04:11:05 Test Item Value Reference Interpretation Comments [...] (test code = 47.6 See_Comment H [Automated 00010-3) message] The system which generated this result [...] valves. Lab Interpretation Abnormal (test code = 38804-9) [facility] CenterPT/[id number] 04:11:05 Test Item Value Reference Range Interpretation [...] mechanical heart valves.CBC W/PLT COUNT & AUTO [id number] 04:06:36 Test Item Value Reference Range Interpretation [...] (BEAKER) (test code = 2801) Blood gas, [id number] 04:00:34 Test Item Value Reference Range Interpretation Comments pH, Arterial (test code 7.47 7.35-7.45 H = 2744-1) pCO2, Arterial (test 33 See_Comment L [Autom ated message] code = 2019-03) The system [employer] generated this result transmit dante reference range : 35 - 45 mm Hg. The reference range was not used to interpret this result as normal/abnormal . pO2, Arterial (test 144 See_Comment H [Automa dante message] code = 2703-7) The system [employer] generated this result transmit dante reference range [...] 21 Lab Interpretation Abnormal (test code = 81101-0) [facility] CenterBlood gas, [id number] 04:00:34 Test Item Value Reference Range Interpretation Comments pH, Arterial (test code 7.47 7.35-7.45 H = 2744-1) pCO2, Arterial (test 33 See_Comment L [Autom ated message] code = 2019-03) The system [employer] generated this result transmit dante reference range : 35 - 45 mm Hg. The reference range was not used to interpret this result as normal/abnormal . pO2, Arterial (test 144 See_Comment H [Automa dante message] code = 2703-7) The system [employer] generated this result transmit dante reference range [...] 21 Lab Interpretation Abnormal (test code = 41358-7) [facility], [id number] 04:00:34 Test Item Value Reference Range Interpretation Comments pH, Arterial (test code 7.47 7.35-7.45 H = 2744-1) pCO2, Arterial (test 33 See_Comment L [Autom ated message] code = 2019-8) The system [employer] generated this result transmit dante reference range : 35 - 45 mm Hg. The reference range was not used to interpret this result as normal/abnormal . pO2, Arterial (test 144 See_Comment H [Automa dante message] code = 2703-7) The system [employer] generated this result transmit dante reference range [...] 21 Lab Interpretation Abnormal (test code = 53081-5) [facility]BL[facility] GAS, [id number] 04:00:34 Test Item Value Reference Range Interpretation Comments PH ARTERIAL (BEAKER) (test code = 7.47 7.35-7.45 H 383) PCO2 ARTERIAL (BEAKER) (test code 33 mm Hg 35-45 L = 384) PO2 ARTERIAL (BEAKER) (test code = 144 mm Hg 80-90 H 385) O2 SATURATION ARTERIAL (BEAKER) 99.0 % 96.0-97.0 H (test code = 386) HCO3 ARTERIAL (BEAKER) (test code 23 mmol/L -29 = 388) BASE EXCESS ARTERIAL (BEAKER) 0.2 mmol/L -2.0-3.0 (test code = 387) PATIENT TEMPERATURE (BEAKER) (test 37.5 code = 1818) FIO2 (BEAKER) (test code = 1819) 21.0 Lactic Acid, [id number] 03:57:33 Test Item Value Reference Range Interpretation Comments Lactate, Art (test code = 0.8 mmol/L 0.5-2.2 2874) EMERSON (test code = EMERSON) Curriculum Specialist ID - MARZENA M Lab Interpretation (test Normal code = 99812-1) [facility] CenterL[facility], [id number] 03:57:33 Test Item Value Reference Range Interpretation Comments Lactate, Art (test code = 0.8 mmol/L 0.5-2.2 2874) EMERSON (test code = EMERSON) Curriculum Specialist ID - MARZENA M Lab Interpretation (test Normal code = 96397-3) [facility] CenterL[facility] Acid, [id number] 03:57:33 Test Item Value Reference Range Interpretation Comments Lactate, Art (test code = 0.8 mmol/L 0.5-2.2 2874) EMERSON (test code = EMERSON) Curriculum Specialist ID - MARZENA Lab Interpretation (test Normal code = 61414-6) [facility] CenterLACTIC ACID, [id number] 03:57:33 Test Item Value Reference Range Interpretation Comments LACTATE BLOOD ARTERIAL (2) 0.8 mmol/L 0.5-2.2 (BEAKER) (test code = 2874) Curriculum Specialist ID - MARZENA MCALCIUM, [id number] 03:56:36 Test Item Value Reference Range Interpretation Comments CALCIUM IONIZED (BEAKER) (test 1.13 mmol/L 1.12-1.27 code = 698) PH, BLOOD (BEAKER) (test code = 7.48 1810) [id number] 21:01:53 Test Item Value Reference Range Interpretation Comments MAGNESIUM (BEAKER) (test code = 2.2 mg/dL 1.6-2.6 627) Curriculum Specialist ID - OSMARBASIC METABOLIC [id number] 21:01:52 Test Item Value Reference Range Interpretation [...] S NOT APPLICABLE FOR DIALYSIS PATIEN TS. Curriculum Specialist ID - DBHemoglobin and funzjkvlkb5726-77-81 20:37:40 Test Item Value Reference Range Interpretation [...] = 4544-3) EMERSON (test code = EMERSON) Curriculum Specialist ID - [id number] Lab Interpretation Abnormal (test code = 74094-6) [facility] CenterHemoglobin and [id number] 20:37:40 Test Item Value Reference Range Interpretation Comments Hemoglobin (test code 8.3 See_Comment L [Auto mated = 786-4) message] The system which generated this result transmit dante reference range : 13.7 - 17.5 GM/ DL. The reference range was not u sed to interpret th is result as normal/abnormal . Hematocrit (test code 26.6 % 40.1-51.0 L = 4544-3) EMERSON (test code = EMERSNO) Curriculum Specialist ID - [id number] Lab Interpretation Abnormal (test code = 80212-5) [facility] CenterHemoglobin and [id number] 20:37:40 Test Item Value Reference Range Interpretation [...] = 4544-3) EMERSON (test code = EMERSON) Curriculum Specialist ID - [id number] Lab Interpretation Abnormal (test code = 29397-8) [facility] CenterHEMOGLOBIN AND [id number] 20:37:40 Test Item Value Reference Range Interpretation Comments HEMOGLOBIN (BEAKER) (test code = 8.3 GM/DL 13.7-17.5 L 410) HEMATOCRIT (BEAKER) (test code = 26.6 % 40.1-51.0 L 411) Curriculum Specialist ID - 6000POCT-GLUCOSE [id number] 20:36:55 Test Item Value Reference Range Interpretation Comments POC-GLUCOSE METER 110 mg/dL 70-110 : TESTED A T [facility] 6720 (BEAKER) (test code = [facility], 1538) 78602: Curriculum Specialist/Techni bart ID = [id number] for MA BEVERLEY CHAUDHRY POCT-GLUCOSE [id number] 16:19:31 Test Item Value Reference Range Interpretation Comments POC-GLUCOSE METER 127 mg/dL 70-110 H : TESTED A T [facility] 6720 (BEAKER) (test code = [facility], 1538) 60023: Curriculum Specialist/Techni bart ID = [id number] for ABDOULAYE WOODS [id number] 12:45:58 Test Item Value Reference Range Interpretation Comments MAGNESIUM (BEAKER) (test code = 2.4 mg/dL 1.6-2.6 627) Curriculum Specialist ID - [id number] 12:45:58 Test Item Value Reference Range Interpretation Comments PHOSPHORUS (BEAKER) (test code = 2.7 mg/dL 2.3-4.7 604) Curriculum Specialist ID - RMBASIC METABOLIC [id number] 12:45:57 Test Item Value Reference Range Interpretation [...] S NOT APPLICABLE FOR DIALYSIS PATIEN TS. Curriculum Specialist ID - RMCALCIUM, [id number] 12:25:40 Test Item Value Reference Range Interpretation Comments CALCIUM IONIZED (BEAKER) (test 1.09 mmol/L 1.12-1.27 L code = 698) PH, BLOOD (BEAKER) (test code = 7.46 1810) Oxygen saturation, [id number] 12:25:23 Test Item Value Reference Range Interpretation Comments O2 Saturation (Measured) (test code = 53.2 % 34914-5) [facility] CenterOxygen saturation, [id number] 12:25:23 Test Item Value Reference Range Interpretation Comments O2 Saturation (Measured) (test code = 53.2 % 45959-3) [facility] CenterOxygen saturation, [id number] 12:25:23 Test Item Value Reference Range Interpretation Comments O2 Saturation (Measured) (test code = 53.2 % 40080-7) [facility] CenterOXYGEN SATURATION, [id number] 12:25:23 Test Item Value Reference Range Interpretation Comments O2 SATURATION (MEASURED) (BEAKER) 53.2 % (test code = 1455) POCT-GLUCOSE [id number] 11:12:10 Test Item Value Reference Range Interpretation Comments POC-GLUCOSE METER 87 mg/dL 70-110 : TESTED A T [facility] 6720 (BEAKER) (test code = [place], 1538) 25[address]: Curriculum Specialist/Techni bart ID = [id number] for PABLITO BAILEY POCT-GLUCOSE [id number] 08:30:46 Test Item Value Reference Range Interpretation Comments POC-GLUCOSE METER 120 mg/dL 70-110 H : TESTED A T [facility] 6720 (BEAKER) (test code = [facility] [place], 1538) 466[address]: Curriculum Specialist/Techni bart ID = [id number] for PH ABDOULAYE ROJAS OXYGEN SATURATION, [id number] 06:27:31 Test Item Value Reference Range Interpretation Comments O2 SATURATION (MEASURED) (BEAKER) 54.6 % (test code = 1455) HEPATIC FUNCTION [id number] 04:48:25 Test Item Value Reference Range Interpretation [...] Specimen moderately (test code = 347) hemolyzed Curriculum Specialist ID - KEARA [id number] 04:48:24 Test Item Value Reference Range Interpretation Comments PHOSPHORUS (BEAKER) 2.8 mg/dL 2.3-4.7 Specimen moderately (test code = 604) hemolyzed Curriculum Specialist ID - KEARA WBASIC METABOLIC [id number] 04:48:24 Test Item Value Reference Range Interpretation [...] S NOT APPLICABLE FOR DIALYSIS PATIEN TS. Curriculum Specialist ID Patrick SARAH [id number] 04:48:23 Test Item Value Reference Range Interpretation Comments MAGNESIUM (BEAKER) 2.1 mg/dL 1.6-2.6 Specimen moderately (test code = 627) hemolyzed Curriculum Specialist ID Patrick SARAH WPT/[id number] 04:45:21 Test Item Value Reference Range Interpretation [...] mechanical heart valves.CBC W/PLT COUNT & AUTO [id number] 04:41:38 Test Item Value Reference Range Interpretation [...] (BEAKER) (test code = 2801) LACTIC ACID, [id number] 04:32:15 Test Item Value Reference Range Interpretation Comments LACTATE BLOOD 1.0 mmol/L 0.5-2.2 Specimen moder ately ARTERIAL (2) (BEAKER) hemoly zed (test code = 2874) Curriculum Specialist ID - KEARA WCALCIUM, [id number] 04:12:20 Test Item Value Reference Range Interpretation Comments CALCIUM IONIZED (BEAKER) (test 1.08 mmol/L 1.12-1.27 L code = 698) PH, BLOOD (BEAKER) (test code = 7.51 1810) BLOOD GAS, [id number] 04:12:14 Test Item Value Reference Range Interpretation [...] (test code = 1819) 21.0 OXYGEN SATURATION, [id number] 04:12:09 Test Item Value Reference Range Interpretation Comments O2 SATURATION (MEASURED) (BEAKER) 57.4 % (test code = 1455) RAD, CHEST, 1 VIEW, NON [id number] 03:17:00while patient is intubated or has chest tubes.Reason for exam:->Status post CV SurgeryShould thisbe performed at the bedside?->Yes [facility] 1945 Sex: MFINAL [...] by: Emir BARRIOS 09/11/2021 03:17 AMBASIC METABOLIC [id number] 22:33:36 Test Item Value Reference Range Interpretation [...] S NOT APPLICABLE FOR DIALYSIS PATIEN TS. Curriculum Specialist ID - [id number] 22:33:35 Test Item Value Reference Range Interpretation Comments MAGNESIUM (BEAKER) 2.5 mg/dL 1.6-2.6 Specimen slightly (test code = 627) hemolyzed Curriculum Specialist ID - DBPOCT-GLUCOSE [id number] 22:18:05 Test Item Value Reference Range Interpretation Comments POC-GLUCOSE METER 113 mg/dL 70-110 H : TESTED A T [facility] 6720 (BEAKER) (test code = [facility] [place], 1538) 75[address]: Curriculum Specialist/Techni bart ID = [id number] for ERASMO PORRAS HEMOGLOBIN AND [id number] 22:16:52 Test Item Value Reference Range Interpretation Comments HEMOGLOBIN (BEAKER) (test code = 8.3 GM/DL 13.7-17.5 L 410) HEMATOCRIT (BEAKER) (test code = 25.3 % 40.1-51.0 L 411) Curriculum Specialist ID - 6000POCT-GLUCOSE [id number] 17:01:08 Test Item Value Reference Range Interpretation Comments POC-GLUCOSE METER 116 mg/dL 70-110 H : TESTED A T [facility] 6720 (BEAKER) (test code = [facility] [place], 1538) 201[address]: Curriculum Specialist/Techni bart ID = [id number] for SERAFIN ATWOOD 2D Echo W/Doppler(CW/PW/Color)2021-09-10 16:05:16Ejection [facility]ractionSLEH [facility]/PW/Color[facility]2021-09-10 16:05:16Ejection [facility]ractionSLEH [facility]Doppler(CW/PW/Color) 2021-09-10 16:05:16Ejection FractionSLEH ECHO [facility]LAB [facility] HospitalOXYGEN SATURATION, [id number] 15:40:36 Test Item Value Reference Range Interpretation Comments O2 SATURATION (MEASURED) (BEAKER) 79.1 % (test code = 1455) [id number] 13:24:14 Test Item Value Reference Range Interpretation Comments MAGNESIUM (BEAKER) (test code = 2.2 mg/dL 1.6-2.6 627) Curriculum Specialist ID - PIAYA LBASIC METABOLIC [id number] 13:24:13 Test Item Value Reference Range Interpretation [...] S NOT APPLICABLE FOR DIALYSIS PATIEN TS. Curriculum Specialist ID - PIAYA LCALCIUM, [id number] 13:05:15 Test Item Value Reference Range Interpretation Comments CALCIUM IONIZED (BEAKER) (test 1.06 mmol/L 1.12-1.27 L code = 698) PH, BLOOD (BEAKER) (test code = 7.52 1810) POCT-GLUCOSE [id number] 11:27:00 Test Item Value Reference Range Interpretation Comments POC-GLUCOSE METER 138 mg/dL 70-110 H : TESTED A T [facility] 6720 (BEAKER) (test code = [facility], 1538) 62606: Curriculum Specialist/Techni bart ID = [id number] for SERAFIN ATWOOD POCT-GLUCOSE [id number] 07:54:29 Test Item Value Reference Range Interpretation Comments POC-GLUCOSE METER 133 mg/dL 70-110 H : TESTED A T [facility] 6720 (BEAKER) (test code = [facility], 1538) 55496: Curriculum Specialist/Techni bart ID = [id number] for SERAFIN ATWOOD HEPATIC FUNCTION [id number] 05:39:39 Test Item Value Reference Range Interpretation [...] (test code = 44 U/L 6-55 347) Curriculum Specialist ID - KAYLEEN [id number] 05:39:38 Test Item Value Reference Range Interpretation Comments PHOSPHORUS (BEAKER) (test code = 2.9 mg/dL 2.3-4.7 604) Curriculum Specialist ID - PIMARIELA LBASIC METABOLIC [id number] 05:39:37 Test Item Value Reference Range Interpretation [...] S NOT APPLICABLE FOR DIALYSIS PATIEN TS. Curriculum Specialist ID - KAYLEEN [id number] 05:39:37 Test Item Value Reference Range Interpretation Comments MAGNESIUM (BEAKER) (test code = 2.2 mg/dL 1.6-2.6 627) Curriculum Specialist ID - KAYLEEN LLACTIC ACID, [id number] 05:27:27 Test Item Value Reference Range Interpretation Comments LACTATE BLOOD 0.9 mmol/L 0.5-2.2 Specimen sligh tly ARTERIAL (2) (BEAKER) hemoly zed (test code = 2874) Curriculum Specialist ID - PIAYA LPT/[id number] 05:14:24 Test Item Value Reference Range Interpretation [...] for patients with mechanical heart valves.OXYGEN SATURATION, [id number] 05:07:37 Test Item Value Reference Range Interpretation Comments O2 SATURATION (MEASURED) (BEAKER) 77.5 % (test code = 1455) CBC W/PLT COUNT & AUTO [id number] 05:07:13 Test Item Value Reference Range Interpretation [...] = 2801) RAD, CHEST, 1 VIEW, NON [id number] 05:07:00while patient is intubated or has chest tubes.Reason for exam:->Status post CV SurgeryShould thisbe performed at the bedside?->Yes [facility] 1945 Sex: MFINAL REPORT RAD, CHEST, 1 VIEW, NON DEPT INDICATION: Status post CV Surgery COMPARISON: Prior day's exam FINDINGS: Portable frontal view of the chest. IMPRESSION: Support Lines: Stable. Lungs and pleura: Unchanged bibasilar airspace and pleural opacities. No pneumothorax. Heart and mediastinum: Stable contours. Additional findings: None. Signed: Halley Osullivan MDReport Verified Date /Time: 09/10/2021 05:07:16 CALCIUM, [id number] 05:03:15 Test Item Value Reference Range Interpretation Comments CALCIUM IONIZED (BEAKER) (test 1.08 mmol/L 1.12-1.27 L code = 698) PH, BLOOD (BEAKER) (test code = 7.51 1810) BLOOD GAS, [id number] 05:00:52 Test Item Value Reference Range Interpretation [...] (BEAKER) (test code = 1819) 21.0 POCT-GLUCOSE [id number] 22:18:19 Test Item Value Reference Range Interpretation Comments POC-GLUCOSE METER 157 mg/dL 70-110 H : TESTED A T [facility] 6720 (BEAKER) (test code = [place], 1538) 899[address]: Curriculum Specialist/Techni bart ID = [id number] for VISHAL GAINES CALCIUM, [id number] 20:12:13 Test Item Value Reference Range Interpretation Comments CALCIUM IONIZED (BEAKER) (test 1.11 mmol/L 1.12-1.27 L code = 698) PH, BLOOD (BEAKER) (test code = 7.47 1810) OXYGEN SATURATION, [id number] 20:12:01 Test Item Value Reference Range Interpretation Comments O2 SATURATION (MEASURED) (BEAKER) 78.0 % (test code = 1455) LACTIC ACID, [id number] 20:12:01 Test Item Value Reference Range Interpretation Comments LACTATE BLOOD 1.4 mmol/L 0.5-2.2 Specimen sligh tly ARTERIAL (2) (BEAKER) hemoly zed (test code = 2874) Curriculum Specialist ID - [id number] 20:09:04 Test Item Value Reference Range Interpretation Comments PHOSPHORUS (BEAKER) 2.7 mg/dL 2.3-4.7 Specimen slightly (test code = 604) hemolyzed Curriculum Specialist ID - DBBASIC METABOLIC [id number] 20:09:04 Test Item Value Reference Range Interpretation [...] S NOT APPLICABLE FOR DIALYSIS PATIEN TS. Curriculum Specialist ID - [id number] 20:09:03 Test Item Value Reference Range Interpretation Comments MAGNESIUM (BEAKER) 2.1 mg/dL 1.6-2.6 Specimen slightly (test code = 627) hemolyzed Curriculum Specialist ID - DBHEMOGLOBIN AND [id number] 19:51:19 Test Item Value Reference Range Interpretation Comments HEMOGLOBIN (BEAKER) (test code = 8.3 GM/DL 13.7-17.5 L 410) HEMATOCRIT (BEAKER) (test code = 25.6 % 40.1-51.0 L 411) Curriculum Specialist ID - [id number] SATURATION, [id number] 09:51:00 Test Item Value Reference Range Interpretation Comments O2 SATURATION (MEASURED) (BEAKER) 67.0 % (test code = 1455) RAD, CHEST, 1 VIEW, NON [id number] 06:36:00while patient is intubated or has chest tubes.Reason for exam:->Status post CV SurgeryShould thisbe performed at the bedside?->[facility] 1945 Sex: MFINAL REPORT RAD, CHEST, 1 VIEW, NON DEPT INDICATION: Status post CV Surgery COMPARISON: Prior day's exam FINDINGS: Portable frontal view of the chest. IMPRESSION: Support Lines: Right chest tube. Horatio-Glen tip overlies the pulmonary outflow tract. Lungs and pleura: Retrocardiac opacity representing singly or in combination airspace disease, atelectasis and/or effusion. Bibasilar interstitial thickening is unchanged. No significant pneumothorax. Heart and mediastinum: Stable contours. Stable surgical changes. Additional findings: None. Signed: Gaby Cordero MDReport Verified Date/Time: 09/09/2021 06:36:02 OXYGEN SATURATION, [id number] 05:12:23 Test Item Value Reference Range Interpretation Comments O2 SATURATION (MEASURED) (BEAKER) 98.5 % (test code = 1455) [id number] 03:20:36 Test Item Value Reference Range Interpretation Comments PHOSPHORUS (BEAKER) (test code = 2.6 mg/dL 2.3-4.7 604) Curriculum Specialist ID - MARZENA [id number] 03:20:35 Test Item Value Reference Range Interpretation Comments MAGNESIUM (BEAKER) (test code = 2.1 mg/dL 1.6-2.6 627) Curriculum Specialist ID - MARZENA MCOMPREHENSIVE METABOLIC [id number] 03:20:34 Test Item Value Reference Range Interpretation [...] S NOT APPLICABLE FOR DIALYSIS PATIEN TS. Curriculum Specialist ID - MARZENA MPOCT-GLUCOSE [id number] 03:04:55 Test Item Value Reference Range Interpretation Comments POC-GLUCOSE METER 143 mg/dL 70-110 H : TESTED A T [facility] 6720 (BEAKER) (test code = [place], 1538) 19577: Curriculum Specialist/Techni bart ID = [id number] for Cathleen Acuña BLOOD GAS, [id number] 02:57:44 Test Item Value Reference Range Interpretation [...] See_Comment H [A utomated message] The system [employer] generated this result transmitted ref erence range: 3.5 - 10 .5 K/L. The refe rence range was not u sed to interpret this result as normal/abnor mal. RBC (test code = 789-8) 3.05 See_Comment L [Au tomated message] The system [employer] generated this result transmitted ref erence range: 4.63 - 6 .08 M/L. The refe rence range was not u sed to interpret this result as normal/abnor mal. MCHC (test code = 786-4) 31.7 See_Comment L [A utomated message] The system [employer] generated this result transmitted ref erence range: [...] See_Comment [Aut omated message] 777-3) The system [employer] generated this result transmitted ref erence range: 150 - 45 0 K/CU MM. The referen ce range was not u sed to interpret this result as normal/abnor mal. MPV (test code = 10.7 fL 9.4-12.4 55264-2) nRBC (test code = 413) 0 See_Comment [Aut omated message] The system [employer] generated this result transmitted ref erence range: 0 - 0 /1 00 WBC. The refere nce range was not u sed to interpret this result as normal/abnor mal. Lab Interpretation (test Abnormal code = 64732-7) [facility]21-[facility]-09 02:57:29 Test Item Value Reference Range Interpretation Comments WBC (test code = 6690-2) 14.5 See_Comment H [A utomated message] The system [employer] generated this result transmitted ref erence range: 3.5 - 10 .5 K/L. The refe rence range was not u sed to interpret this result as normal/abnor mal. RBC (test code = 789-8) 3.05 See_Comment L [Au tomated message] The system [employer] generated this result transmitted ref erence range: 4.63 - 6 .08 M/L. The refe rence range was not u sed to interpret this result as normal/abnor mal. MCHC (test code = 786-4) 31.7 See_Comment L [A utomated message] The system [employer] generated this result transmitted ref erence range: [...] See_Comment [Aut omated message] 777-3) The system [employer] generated this result transmitted ref erence range: 150 - 45 0 K/CU MM. The referen ce range was not u sed to interpret this result as normal/abnor mal. MPV (test code = 10.7 fL 9.4-12.4 31627-1) nRBC (test code = 413) 0 See_Comment [Aut omated message] The system [employer] generated this result transmitted ref erence range: 0 - 0 /1 00 WBC. The refere nce range was not u sed to interpret this result as normal/abnor mal. Lab Interpretation (test Abnormal code = 30891-0) [facility] (Hemogram only)2021-09-09 02:57:29 Test Item Value Reference Range Interpretation Comments WBC (test code = 6690-2) 14.5 See_Comment H [A utomated message] The system [employer] generated this result transmitted ref erence range: 3.5 - 10 .5 K/L. The refe rence range was not u sed to interpret this result as normal/abnor mal. RBC (test code = 789-8) 3.05 See_Comment L [Au tomated message] The system [employer] generated this result transmitted ref erence range: 4.63 - 6 .08 M/L. The refe rence range was not u sed to interpret this result as normal/abnor mal. MCHC (test code = 786-4) 31.7 See_Comment L [A utomated message] The system [employer] generated this result transmitted ref erence range: [...] See_Comment [Aut omated message] 777-3) The system [employer] generated this result transmitted ref erence range: 150 - 45 0 K/CU MM. The referen ce range was not u sed to interpret this result as normal/abnor mal. MPV (test code = 10.7 fL 9.4-12.4 05864-0) nRBC (test code = 413) 0 See_Comment [Aut omated message] The system [employer] generated this result transmitted ref erence range: 0 - 0 /1 00 WBC. The refere nce range was not u sed to interpret this result as normal/abnor mal. Lab Interpretation (test Abnormal code = 27413-3) [facility] (HEMOGRAM ONLY)2021-09-09 02:57:29 Test Item Value [...] 0-0 (BEAKER) (test code = 413) CALCIUM, [id number] 02:57:28 Test Item Value Reference Range Interpretation Comments CALCIUM IONIZED (BEAKER) (test 1.12 mmol/L 1.12-1.27 code = 698) PH, BLOOD (BEAKER) (test code = 7.46 1810) POCT-GLUCOSE [id number] 21:16:02 Test Item Value Reference Range Interpretation Comments POC-GLUCOSE METER 169 mg/dL 70-110 H : TESTED A T [facility] 6720 (BEAKER) (test code = [facility], 1538) 53090: Curriculum Specialist/Techni bart ID = [id number] for Am rodrigo Walker POCT-GLUCOSE [id number] 21:12:37 Test Item Value Reference Range Interpretation Comments POC-GLUCOSE METER 140 mg/dL 70-110 H : TESTED A T [facility] 6720 (BEAKER) (test code [facility], = 1538) 15036: Curriculum Specialist/Techni bart ID = [id number] for SEAN REED (contract) NICHELLE MERCADOSAMANTHA 2D Echo W/Doppler(CW/PW/Color)2021-09-08 15:37:08Ejection [facility]ractionSLEH [facility]CHO [facility]Do[facility](CW/PW/Color)2021-09-08 15:37:08Ejection [facility]ractionSLEH [facility](CW/PW/Color) 2021-09-08 15:37:08Ejection FractionSLEH ECHO [facility]LAB [facility]2022-[facility]-21 15:32:47 Test Item Value Reference Range Interpretation Comments POTASSIUM (BEAKER) 4.3 meq/L 3.5-5.1 Specimen slightly (test code = 379) hemolyzed Curriculum Specialist ID - KAYLEEN [id number] 15:32:46 Test Item Value Reference Range Interpretation Comments MAGNESIUM (BEAKER) 2.0 mg/dL 1.6-2.6 Specimen slightly (test code = 627) hemolyzed Curriculum Specialist ID Patrick BEYER LCBC W/PLT COUNT & AUTO [id number] 15:19:56 Test Item Value Reference Range Interpretation [...] PERCENT (BEAKER) (test code = 2801) CALCIUM, [id number] 15:12:46 Test Item Value Reference Range Interpretation Comments CALCIUM IONIZED (BEAKER) (test 1.11 mmol/L 1.12-1.27 L code = 698) PH, BLOOD (BEAKER) (test code = 7.48 1810) POCT-GLUCOSE [id number] 14:49:24 Test Item Value Reference Range Interpretation Comments POC-GLUCOSE METER 102 mg/dL 70-110 : TESTED A T [facility] 6720 (BEAKER) (test code [facility], = 1538) 14160: Curriculum Specialist/Techni bart ID = [id number] for SEAN NOVA (contract), NICHELLE RUPINDER POCT-GLUCOSE [id number] 10:32:59 Test Item Value Reference Range Interpretation Comments POC-GLUCOSE METER 104 mg/dL 70-110 : TESTED A T [facility] 6720 (BEAKER) (test code [facility], = 1538) 43372: Curriculum Specialist/Techni bart ID = [id number] for SEAN NOVA (contract), NICHELLE RUPINDER HEMOGLOBIN AND [id number] 10:32:38 Test Item Value Reference Range Interpretation Comments HEMOGLOBIN (BEAKER) (test code = 7.7 GM/DL 13.7-17.5 L 410) HEMATOCRIT (BEAKER) (test code = 25.3 % 40.1-51.0 L 411) Curriculum Specialist ID - 6000POCT-GLUCOSE [id number] 09:26:31 Test Item Value Reference Range Interpretation Comments POC-GLUCOSE METER 96 mg/dL 70-110 : TESTED A T [facility] 6720 (BEAKER) (test code = [facility], 1538) 10265: Curriculum Specialist/Techni bart ID = [id number] for SEAN NOVA (contract), NICHELLE OSLASAMANTHA LACTIC ACID, [id number] 09:18:52 Test Item Value Reference Range Interpretation Comments LACTATE BLOOD ARTERIAL (2) 1.7 mmol/L 0.5-2.2 (BEAKER) (test code = 2874) Curriculum Specialist ID - DBOXYGEN SATURATION, [id number] 09:17:35 Test Item Value Reference Range Interpretation Comments O2 SATURATION (MEASURED) (BEAKER) 60.3 % (test code = 1455) POCT-GLUCOSE [id number] 09:09:11 Test Item Value Reference Range Interpretation Comments POC-GLUCOSE METER 101 mg/dL 70-110 : TESTED A T [facility] 6720 (BEAKER) [facility] 15[facility] 27963: Curriculum Specialist/Techni bart ID = [id number] for SEAN REED (contract), NICHELLE BUCIO BLOOD GAS, [id number] 09:08:49 Test Item Value Reference Range Interpretation [...] = No growth in 5 days 6463-4) [facility])2021-09-08 08:00:53 Test Item Value Reference Range Interpretation Comments Result (test code = No growth in 5 days 6463-4) [facility] (Left Venipuncture)2021-09-08 08:00:53 Test Item Value Reference Range Interpretation Comments Result (test code = No growth in 5 days 6463-4) [facility] Center[facility] [id number] 08:00:53 Test Item Value Reference Range Interpretation Comments CULTURE (BEAKER) (test No growth in 5 days code = 1095) BLOOD [id number] 08:00:52 Test Item Value Reference Range Interpretation Comments CULTURE (BEAKER) (test No growth in 5 days code = 1095) [id number] 07:57:26 Test Item Value Reference Range Interpretation Comments Scan Result (test code = See scanned report [id number]) EMERSON (test code = EMERSON) See scanned report [facility] Center[facility]OTEM2022-01-21 07:57:26 Test Item Value Reference Range Interpretation Comments Scan Result (test code = See scanned report [id number]) EMERSON (test code = EMERSON) See scanned report [facility]2022-01-21 07:57:26 Test Item Value Reference Range Interpretation Comments Scan Result (test code = See scanned report [id number]) EMERSON (test code = EMERSON) See scanned report [facility] CenterMISCELLANEOUS LAB [id number] 07:57:26 Test Item Value Reference Range Interpretation Comments SCAN RESULT (test code = See scanned report [id number]) See scanned reportLACTIC ACID, [id number] 06:32:27 Test Item Value Reference Range Interpretation Comments LACTATE BLOOD ARTERIAL (2) 3.0 mmol/L 0.5-2.2 H (BEAKER) (test code = 2874) Curriculum Specialist ID - PIAYA LPOC ACTIVATED CLOTTING [id number] 06:31:19 Test Item Value Reference Range Interpretation Comments Activated Clotting Time 142 sec : 74 -137 seconds, (test code = 441) Baseline: TESTED AT [facility] 6720 [facility], 770 30: Curriculum Specialist/Techni bart ID = [id number] for Sa enz, Angela [facility] ACTIVATED CLOTTING [id number] 06:31:19 Test Item Value Reference Range Interpretation Comments Activated Clotting Time 142 sec : 74 -137 seconds, (test code = 3184-9) Baselin e: TESTED AT [facility] 6720 [facility], 770 30: Curriculum Specialist/Techni bart ID = [id number] for Sa enz, Angela [facility] ACTIVATED CLOTTING [id number] 06:31:19 Test Item Value Reference Range Interpretation Comments Activated Clotting Time 142 sec : 74 -137 seconds, (test code = 3184-9) Baselin e: TESTED AT [address], 770 30: Curriculum Specialist/Techni bart ID = [id number] for Sa enz, Angela [id number] 06:31:19 Test Item Value Reference Range Interpretation Comments ACTIVATED CLOTTING TIME 142 sec : 74 -137 seconds, (BEAKER) (test code = Baseli ne: TESTED AT 441) [address], 770 30: Curriculum Specialist/Techni bart ID = [id number] for Sa enz, Angela [id number] 06:31:17 Test Item Value Reference Range Interpretation Comments ACTIVATED CLOTTING TIME 785 sec : 74 -137 seconds, (BEAKER) (test code = Baseli ne: TESTED AT 441) [address], 770 30: Curriculum Specialist/Techni bart ID = [id number] for Sa enz, Angela [id number] 06:31:17 Test Item Value Reference Range Interpretation Comments ACTIVATED CLOTTING TIME 964 sec : 74 -137 seconds, (BEAKER) (test code = Baseli ne: TESTED AT 441) [address], 770 30: Curriculum Specialist/Techni bart ID = [id number] for Sa enz, Angela [id number] 06:31:16 Test Item Value Reference Range Interpretation Comments ACTIVATED CLOTTING TIME > sec : 74 -137 seconds, (BEAKER) (test code = Baseli ne: TESTED AT 441) [address], 770 30: Curriculum Specialist/Techni bart ID = [id number] for Sa enz, Angela [id number] 06:31:15 Test Item Value Reference Range Interpretation Comments ACTIVATED CLOTTING TIME > sec : 74 -137 seconds, (BEAKER) (test code = Baseli ne: TESTED AT 441) [address], [facility] 30: Curriculum Specialist/Techni bart ID = [id number] for Sa enz, Angela [id number] 06:31:14 Test Item Value Reference Range Interpretation Comments ACTIVATED CLOTTING TIME 708 sec : 74 -137 seconds, (BEAKER) (test code = Josei ne: TESTED AT 441) [facility] 6720 [facility], 770 30: Curriculum Specialist/Techni bart ID = [id number] for Angela Paniagua [id number] 06:31:13 Test Item Value Reference Range Interpretation Comments ACTIVATED CLOTTING TIME 154 sec : 74 -137 seconds, (BEAKER) (test code = Jake ne: TESTED AT 441) [facility] 6720 [facility], 770 30: Curriculum Specialist/Techni bart ID = [id number] for Angela Paniagua POCT-GLUCOSE [id number] 06:26:19 Test Item Value Reference Range Interpretation Comments POC-GLUCOSE METER 117 mg/dL 70-110 H : TESTED A T [facility] 6720 (BEAKER) (test code = [facility], 1538) 98283: Curriculum Specialist/Techni bart ID = [id number] for La Jane sullivan HGB/HCT (H&H)-Stat [id number] 06:21:12 Test Item Value Reference Range Interpretation Comments Hemoglobin (test code = 8.3 See_Comment L [Au tomated message] 786-4) The system [employer] generated this result transmitted ref erence range: 13.0 - 1 6.8 GM/DL. The refe rence range was not u sed to interpret this result as normal/abnor mal. Hematocrit (test code = 24.0 % 40.0-50.0 L 4544-3) Lab Interpretation (test Abnormal code = 21028-6) [facility] Center[facility]-Stat [id number] 06:21:12 Test Item Value Reference Range Interpretation Comments Glucose (test code = 2345-7) 123 mg/dL 70-110 H Lab Interpretation (test code = Abnormal 93536-6) [facility] CenterH[facility]/HCT (H&H)-Stat [id number] 06:21:12 Test Item Value Reference Range Interpretation Comments Hemoglobin (test code = 8.3 See_Comment L [Au tomated message] 786-4) The system [employer] generated this result transmitted ref erence range: 13.0 - 1 6.8 GM/DL. The refe rence range was not u sed to interpret this result as normal/abnor mal. Hematocrit (test code = 24.0 % 40.0-50.0 L 4544-3) Lab Interpretation (test Abnormal code = 68650-0) [facility] CenterGlucose-Stat [id number] 06:21:12 Test Item Value Reference Range Interpretation Comments Glucose (test code = 2345-7) 123 mg/dL 70-110 H Lab Interpretation (test code = Abnormal 72317-7) [facility] Center[facility]/HCT (H&H)-Stat [id number] 06:21:12 Test Item Value Reference Range Interpretation Comments Hemoglobin (test code = 8.3 See_Comment L [Au tomated message] 786-4) The system [employer] generated this result transmitted ref erence range: 13.0 - 1 6.8 GM/DL. The refe rence range was not u sed to interpret this result as normal/abnor mal. Hematocrit (test code = 24.0 % 40.0-50.0 L 4544-3) Lab Interpretation (test Abnormal code = 06229-1) [facility] CenterGl[facility]Stat [id number] 06:21:12 Test Item Value Reference Range Interpretation Comments Glucose (test code = 2345-7) 123 mg/dL 70-110 H Lab Interpretation (test code = Abnormal 65688-6) [facility] CenterGLUCOSE-STAT [id number] 06:21:12 Test Item Value Reference Range Interpretation Comments GLUCOSE RANDOM (BEAKER) (test code 123 mg/dL 70-110 H = 652) HGB/HCT (H&H) - STAT [id number] 06:21:12 Test Item Value Reference Range Interpretation Comments HEMOGLOBIN (BEAKER) (test code = 8.3 GM/DL 13.0-16.8 L 410) HEMATOCRIT (BEAKER) (test code = 24.0 % 40.0-50.0 L 411) BLOOD GAS, [id number] 06:21:11 Test Item Value Reference Range Interpretation [...] (BEAKER) (test code = 1819) 40.0 Potassium-Stat [id number] 06:19:05 Test Item Value Reference Range Interpretation Comments Potassium (test code = 2823-3) 4.1 meq/L 3.6-5.5 Lab Interpretation (test code = Normal 85849-8) [facility] CenterPotassium-Stat [id number] 06:19:05 Test Item Value Reference Range Interpretation Comments Potassium (test code = 2823-3) 4.1 meq/L 3.6-5.5 Lab Interpretation (test code = Normal 95759-1) [facility] CenterPotassium-Stat [id number] 06:19:05 Test Item Value Reference Range Interpretation Comments Potassium (test code = 2823-3) 4.1 meq/L 3.6-5.5 Lab Interpretation (test code = Normal 71172-0) [facility] CenterPOTASSIUM-STAT [id number] 06:19:05 Test Item Value Reference Range Interpretation Comments POTASSIUM (BEAKER) (test code = 4.1 meq/L 3.6-5.5 379) Sodium Na-Stat [id number] 06:19:04 Test Item Value Reference Range Interpretation Comments Sodium (test code = 2951-2) 140 meq/L 136-145 Lab Interpretation (test code = Normal 74587-3) [facility] Center[facility] Na-Stat [id number] 06:19:04 Test Item Value Reference Range Interpretation Comments Sodium (test code = 2951-2) 140 meq/L 136-145 Lab Interpretation (test code = Normal 26440-1) [facility] Center[facility] Na-Stat [id number] 06:19:04 Test Item Value Reference Range Interpretation Comments Sodium (test code = 2951-2) 140 meq/L 136-145 Lab Interpretation (test code = Normal 60565-6) [facility] CenterODIUM NA-STAT [id number] 06:19:04 Test Item Value Reference Range Interpretation Comments SODIUM (BEAKER) (test code = 381) 140 meq/L 136-145 POCT-GLUCOSE [id number] 06:03:00 Test Item Value Reference Range Interpretation Comments POC-GLUCOSE METER 117 mg/dL 70-110 H : TESTED A T [facility] 6720 (BEAKER) (test code = [facility] [place], 1538) 50369: Curriculum Specialist/Techni bart ID = [id number] for Cathie thomasaJane POCT-GLUCOSE [id number] 04:27:30 Test Item Value Reference Range Interpretation Comments POC-GLUCOSE METER 131 mg/dL 70-110 H : TESTED A T [facility] 6720 (BEAKER) (test code = [facility] S[facility], 1538) 32761: Curriculum Specialist/Techni bart ID = [id number] for La nate, Jane HGB/HCT (H&H) - STAT [id number] 04:22:31 Test Item Value Reference Range Interpretation Comments HEMOGLOBIN (BEAKER) (test code = 8.5 GM/DL 13.0-16.8 L 410) HEMATOCRIT (BEAKER) (test code = 25.0 % 40.0-50.0 L 411) BLOOD GAS, [id number] 04:22:30 Test Item Value Reference Range Interpretation [...] (BEAKER) (test code = 1819) 40.0 GLUCOSE-STAT [id number] 04:22:30 Test Item Value Reference Range Interpretation Comments GLUCOSE RANDOM (BEAKER) (test code 145 mg/dL 70-110 H = 652) OXYGEN SATURATION, [id number] 04:22:06 Test Item Value Reference Range Interpretation Comments O2 SATURATION (MEASURED) (BEAKER) 70.0 % (test code = 1455) SODIUM NA-STAT [id number] 04:21:07 Test Item Value Reference Range Interpretation Comments SODIUM (BEAKER) (test code = 381) 138 meq/L 136-145 POTASSIUM-STAT [id number] 04:21:07 Test Item Value Reference Range Interpretation Comments POTASSIUM (BEAKER) (test code = 4.0 meq/L 3.6-5.5 379) RAD, CHEST, 1 VIEW, NON [id number] 04:06:00while patient is intubated or has chest tubes.Reason for exam:->Status post CV SurgeryShould thisbe performed at the bedside?->[facility] 1945 Sex: MFINAL REPORT RAD, CHEST, 1 VIEW, NON DEPT INDICATION: Status post CV Surgery COMPARISON: Prior day's exam FINDINGS: Portable frontal view of the chest. IMPRESSION: Support Lines: Slight repositioning of the right IJ Horatio-Glen catheter tip overlying the main pulmonary artery. Lungs and pleura: Unchanged airspace and pleural opacities. No pneumothorax.Heart and mediastinum: Stable co ntours. Stable surgical changes.Additional findings: None. Signed: Rm Nassar Verified Date/Time: 09/08/2021 04:06:10 LACTIC ACID, ARTERIAL 2021-09-08 03:28:09 Test Item Value Reference Range Interpretation Comments LACTATE BLOOD ARTERIAL (2) 4.4 mmol/L 0.5-2.2 HH (BEAKER) (test code = 2874) Curriculum Specialist ID - DBPOCT-GLUCOSE [id number] 03:20:20 Test Item Value Reference Range Interpretation Comments POC-GLUCOSE METER 127 mg/dL 70-110 H : TESTED A T [facility] 6720 (BEAKER) (test code = [place], 1538) 75894: Curriculum Specialist/Techni bart ID = [id number] for Jane Payne CBC W/PLT COUNT & AUTO [id number] 03:14:20 Test Item Value Reference Range Interpretation [...] 0-1 PERCENT (BEAKER) (test code = 2801) [id number] 03:02:27 Test Item Value Reference Range Interpretation Comments PHOSPHORUS (BEAKER) (test code = 2.5 mg/dL 2.3-4.7 604) Curriculum Specialist ID - [id number] 03:02:26 Test Item Value Reference Range Interpretation Comments MAGNESIUM (BEAKER) (test code = 2.3 mg/dL 1.6-2.6 627) Curriculum Specialist ID - DBCOMPREHENSIVE METABOLIC [id number] 03:02:25 Test Item Value Reference Range Interpretation [...] S NOT APPLICABLE FOR DIALYSIS PATIEN TS. Curriculum Specialist ID - DBCALCIUM, [id number] 02:42:47 Test Item Value Reference Range Interpretation Comments CALCIUM IONIZED (BEAKER) (test 1.09 mmol/L 1.12-1.27 L code = 698) PH, BLOOD (BEAKER) (test code = 7.51 1810) GLUCOSE-STAT [id number] 02:42:45 Test Item Value Reference Range Interpretation Comments GLUCOSE RANDOM (BEAKER) (test code 162 mg/dL 70-110 H = 652) HGB/HCT (H&H) - STAT [id number] 02:42:45 Test Item Value Reference Range Interpretation Comments HEMOGLOBIN (BEAKER) (test code = 8.3 GM/DL 13.0-16.8 L 410) HEMATOCRIT (BEAKER) (test code = 24.0 % 40.0-50.0 L 411) BLOOD GAS, [id number] 02:42:44 Test Item Value Reference Range Interpretation [...] (test code = 1819) 40.0 SODIUM NA-STAT [id number] 02:39:19 Test Item Value Reference Range Interpretation Comments SODIUM (BEAKER) (test code = 381) 138 meq/L 136-145 POTASSIUM-STAT [id number] 02:39:19 Test Item Value Reference Range Interpretation Comments POTASSIUM (BEAKER) (test code = 3.8 meq/L 3.6-5.5 379) POCT-GLUCOSE [id number] 02:22:45 Test Item Value Reference Range Interpretation Comments POC-GLUCOSE METER 148 mg/dL 70-110 H : TESTED A T [facility] 6720 (BEDatam) (test code = [facility], 1538) 01779: Curriculum Specialist/Techni bart ID = [id number] for La nate, Jane OXYGEN SATURATION, [id number] 01:24:13 Test Item Value Reference Range Interpretation Comments O2 SATURATION (MEASURED) (BEAKER) 71.6 % (test code = 1455) POCT-GLUCOSE [id number] 01:14:53 Test Item Value Reference Range Interpretation Comments POC-GLUCOSE METER 159 mg/dL 70-110 H : TESTED A T [facility] 6720 ([employer]) (test code = [facility], 1538) 36335: Curriculum Specialist/Techni bart ID = [id number] for La nate, Jane POCT-GLUCOSE [id number] 00:12:10 Test Item Value Reference Range Interpretation Comments POC-GLUCOSE METER 170 mg/dL 70-110 H : TESTED A T [facility] 6720 (BEAKER) (test code = [facility], 1538) 84893: Curriculum Specialist/Techni bart ID = [id number] for La nate, Jane HGB/HCT (H&H) - STAT [id number] 00:01:07 Test Item Value Reference Range Interpretation Comments HEMOGLOBIN (BEAKER) (test code = 8.6 GM/DL 13.0-16.8 L 410) HEMATOCRIT (BEAKER) (test code = 25.0 % 40.0-50.0 L 411) BLOOD GAS, [id number] 00:01:06 Test Item Value Reference Range Interpretation [...] (BEAKER) (test code = 1819) 40.0 GLUCOSE-STAT [id number] 00:01:06 Test Item Value Reference Range Interpretation Comments GLUCOSE RANDOM (BEAKER) (test code 185 mg/dL 70-110 H = 652) POTASSIUM-STAT [id number] 00:00:02 Test Item Value Reference Range Interpretation Comments POTASSIUM (BEAKER) (test code = 4.0 meq/L 3.6-5.5 379) SODIUM NA-STAT [id number] 00:00:01 Test Item Value Reference Range Interpretation Comments SODIUM (BEAKER) (test code = 381) 138 meq/L 136-145 POCT-GLUCOSE [id number] 23:16:14 Test Item Value Reference Range Interpretation Comments POC-GLUCOSE METER 169 mg/dL 70-110 H : TESTED A T [facility] 6720 (BEAKER) (test code = [place], 1538) 81287: Curriculum Specialist/Techni bart ID = [id number] for Jane Payne POCT-GLUCOSE [id number] 22:48:00 Test Item Value Reference Range Interpretation Comments POC-GLUCOSE METER 186 mg/dL 70-110 H : TESTED A T [facility] 6720 (BEAKER) (test code = [facility], 1538) 13443: Curriculum Specialist/Techni bart ID = [id number] for Jane Payne LACTIC ACID, [id number] 22:32:03 Test Item Value Reference Range Interpretation Comments LACTATE BLOOD ARTERIAL (2) 7.7 mmol/L 0.5-2.2 HH (BEAKER) (test code = 2874) Curriculum Specialist ID - DBSpecimen slightly [id number] 22:20:51 Test Item Value Reference Range Interpretation Comments PARTIAL THROMBOPLASTIN TIME 50.9 seconds 22.5-36.0 H (BEAKER) (test code = 760) POCT-GLUCOSE [id number] 22:10:53 Test Item Value Reference Range Interpretation Comments POC-GLUCOSE METER 203 mg/dL 70-110 H : TESTED A Ivanna [facility] 6720 (BEAKER) (test code = DOMIN[facility], 1538) 49148: Curriculum Specialist/Techni bart ID = [id number] for Jane Payne HGB/HCT (H&H) - STAT [id number] 22:10:05 Test Item Value Reference Range Interpretation Comments HEMOGLOBIN (BEAKER) (test code = 8.4 GM/DL 13.0-16.8 L 410) HEMATOCRIT (BEAKER) (test code = 25.0 % 40.0-50.0 L 411) GLUCOSE-STAT [id number] 22:10:04 Test Item Value Reference Range Interpretation Comments GLUCOSE RANDOM (BEAKER) (test code 203 mg/dL 70-110 H = 652) BLOOD GAS, [id number] 22:10:03 Test Item Value Reference Range Interpretation [...] (test code = 1819) 40.0 SODIUM NA-STAT [id number] 22:09:47 Test Item Value Reference Range Interpretation Comments SODIUM (BEAKER) (test code = 381) 140 meq/L 136-145 POTASSIUM-STAT [id number] 22:09:47 Test Item Value Reference Range Interpretation Comments POTASSIUM (BEAKER) (test code = 3.8 meq/L 3.6-5.5 379) BASIC METABOLIC [id number] 21:03:11 Test Item Value Reference Range Interpretation [...] S NOT APPLICABLE FOR DIALYSIS PATIEN TS. Curriculum Specialist ID - MARZENA MHGB/HCT (H&H) - STAT [id number] 20:56:34 Test Item Value Reference Range Interpretation Comments HEMOGLOBIN (BEAKER) (test code = 9.2 GM/DL 13.0-16.8 L 410) HEMATOCRIT (BEAKER) (test code = 27.0 % 40.0-50.0 L 411) GLUCOSE-STAT [id number] 20:56:33 Test Item Value Reference Range Interpretation Comments GLUCOSE RANDOM (BEAKER) (test code 216 mg/dL 70-110 H = 652) BLOOD GAS, [id number] 20:56:32 Test Item Value Reference Range Interpretation [...] (BEAKER) (test code = 1819) 40.0 POTASSIUM-STAT [id number] 20:55:37 Test Item Value Reference Range Interpretation Comments POTASSIUM (BEAKER) (test code = 3.9 meq/L 3.6-5.5 379) SODIUM NA-STAT [id number] 20:55:36 Test Item Value Reference Range Interpretation Comments SODIUM (BEAKER) (test code = 381) 138 meq/L 136-145 LACTIC ACID, [id number] 19:32:31 Test Item Value Reference Range Interpretation Comments LACTATE BLOOD ARTERIAL (2) 9.1 mmol/L 0.5-2.2 HH (BEAKER) (test code = 2874) Curriculum Specialist ID - MARZENA MCBC (HEMOGRAM ONLY)2021-09-07 19:15:57 [...] (BEAKER) (test code = 413) BLOOD GAS, [id number] 19:14:26 Test Item Value Reference Range Interpretation [...] (test code = 1819) 60.0 OXYGEN SATURATION, [id number] 19:14:15 Test Item Value Reference Range Interpretation Comments O2 SATURATION (MEASURED) (BEAKER) 72.3 % (test code = 1455) POCT-GLUCOSE [id number] 18:29:54 Test Item Value Reference Range Interpretation Comments POC-GLUCOSE METER 170 mg/dL 70-110 H : TESTED A T [facility] 6720 (BEAKER) (test code = [place], 1538) 93118: Curriculum Specialist/Techni bart ID = [id number] for CO ONCE, SHELLEY CT, CTA, [id number] 17:57:00Unlisted Reason for Exam - Click Yes and Enter Reason Below->YesUnlisted Reason for Exam->Pre op evaluation of aorta, assessment prior to cardiac surgery. need to see distance of aorta from chest wall and calcification of aorta [facility]ENTER[facility] : 1945 [...] Verified Date/Time: 09/07/2021 17:57:58 Reading Location: [facility] Radiology Reading RoomAddendum EndsFINAL REPORT CTA [...] aorta. There is no acute aortic pathology. Funeral Service Practitioner/Embalmer dimensions of the thoracic aorta are as [...] lesion. Signed: Bhargav Humphreys Verified Date/Time: 0:03:27 CT, CTA [id number] 17:57:00Unlisted Reason for Exam - Click Yes and Enter Reason Below->YesUnlisted Reason for Exam->Evaluate descending aorta for calcification down to femoral vessels, prior to cannulation of femoral artery and vein for cardiac surgery. [facility] CENTERName: CADEN [facility]ILES : 1945 [...] Verified Date/Time: 09/07/2021 17:57:58 Reading Location: [facility] Radiology Reading RoomAddendum EndsFINAL REPORT CTA [...] aorta. There is no acute aortic pathology. Funeral Service Practitioner/Embalmer dimensions of the thoracic aorta are as [...] Humphreys MDReport Verified Date/Time: 0:03:27 LACTIC ACID, [id number] 17:36:22 Test Item Value Reference Range Interpretation Comments LACTATE BLOOD 8.2 mmol/L 0.5-2.2 HH Specimen sligh tly ARTERIAL (2) (BEAKER) hemoly zed (test code = 2874) Curriculum Specialist ID - MARZENA MHGB/HCT (H&H) - STAT [id number] 17:15:52 Test Item Value Reference Range Interpretation Comments HEMOGLOBIN (BEAKER) (test code = 8.7 GM/DL 13.0-16.8 L 410) HEMATOCRIT (BEAKER) (test code = 26.0 % 40.0-50.0 L 411) GLUCOSE-STAT [id number] 17:15:51 Test Item Value Reference Range Interpretation Comments GLUCOSE RANDOM (BEAKER) (test code 179 mg/dL 70-110 H = 652) BLOOD GAS, [id number] 17:15:50 Test Item Value Reference Range Interpretation [...] (BEAKER) (test code = 1819) 40.0 POTASSIUM-STAT [id number] 17:15:06 Test Item Value Reference Range Interpretation Comments POTASSIUM (BEAKER) (test code = 3.6 meq/L 3.6-5.5 379) SODIUM NA-STAT [id number] 17:15:05 Test Item Value Reference Range Interpretation Comments SODIUM (BEAKER) (test code = 381) 138 meq/L 136-145 LACTIC ACID, [id number] 15:47:03 Test Item Value Reference Range Interpretation Comments LACTATE BLOOD 5.7 mmol/L 0.5-2.2 HH Specimen moder ately ARTERIAL (2) (BEAKER) hemoly zed (test code = 2874) Curriculum Specialist ID - MARZENA MBASIC METABOLIC [id number] 15:45:08 Test Item Value Reference Range Interpretation [...] S NOT APPLICABLE FOR DIALYSIS PATIEN TS. Curriculum Specialist ID - MARZENA UTDIDGNLWPK3066-08-72 15:45:07 Test Item Value Reference Range Interpretation Comments PHOSPHORUS (BEAKER) 3.1 mg/dL 2.3-4.7 Specimen slightly (test code = 604) hemolyzed Curriculum Specialist ID - MARZENA EERTHGMMZS9402-25-97 15:45:06 Test Item Value Reference Range Interpretation Comments MAGNESIUM (BEAKER) 2.9 mg/dL 1.6-2.6 H Specimen slightly (test code = 627) hemolyzed Curriculum Specialist ID - MARZENA MCBC W/PLT COUNT & AUTO [id number] 15:40:58 Test Item Value Reference Range Interpretation [...] 0-1 PERCENT (BEAKER) (test code = 2801) [id number] 15:37:40 Test Item Value Reference Range Interpretation [...] is 2.5-3.5 for patients with mechanical heart valves.[id number] 15:37:05 Test Item Value Reference Range Interpretation Comments Fibrinogen (test code = 3255-7) 466 mg/dl 225-434 H Lab Interpretation (test code = Abnormal 42902-0) [facility] 15:37:05 Test Item Value Reference Range Interpretation Comments Fibrinogen (test code = 3255-7) 466 mg/dl 225-434 H Lab Interpretation (test code = Abnormal 87075-7) [facility] 15:37:05 Test Item Value Reference Range Interpretation Comments Fibrinogen (test code = 3255-7) 466 mg/dl 225-434 H Lab Interpretation (test code = Abnormal 45648-8) [facility] 15:37:05 Test Item Value Reference Range Interpretation Comments FIBRINOGEN LEVEL (BEAKER) (test 466 mg/dl 225-434 H code = 658) PROTHROMBIN TIME/[id number] 15:36:48 Test Item Value Reference Range Interpretation Comments PROTIME (BEAKER) 18.7 seconds 11.9-14.2 H (test code = 759) INR (BEAKER) (test 1.58 See_Comment [Automat ed message] code = 370) The system [employer] generated this result transmitted ref erence range: <=5.90. The reference range was not used to int erpret this result as normal/abnormal . RECOMMENDED COUMADIN/WARFARIN INR THERAPY RANGESSTANDARD DOSE: 2.0 - 3.0 Includes: PROPHYLAXIS for venous thrombosis, systemic embolization; TREATMENT for venous thrombosis and/or pulmonary embolus.HIGH RISK: Target INR is 2.5-3.5 for patients with mechanical heart valves.BLOOD GAS, [id number] 15:31:17 Test Item Value Reference Range Interpretation [...] (test code = 1819) 60.0 OXYGEN SATURATION, [id number] 15:30:38 Test Item Value Reference Range Interpretation Comments O2 SATURATION (MEASURED) (BEAKER) 66.2 % (test code = 1455) RAD, CHEST, 1 VIEW, NON [id number] 15:30:00Reason for exam:->Status post CV Surgery post op day 0Should this be performed at the bedside?->[facility] 1945 Sex: MFINAL REPORT Chest dated 09/07/2021 COMPARISON: September 05, 2021 Clinical Information: Status post CV Surgery post op day 0 Comment: Heart is enlarged. Pulmonary vasculature is indistinct. Airspace disease is seen bilaterally suggestive of pulmonary edema. Endotracheal tube, nasogastric tube, Horatio-Glen catheter, and right chest tube are present. No pneumothorax is seen. Signed: Halley Khan Verified Date/Time: 09/07/2021 15:30:25 Reading Location: [facility] Rad[facility] [id number] 14:47:00 Test Item Value Reference Range Interpretation Comments CROSSMATCH (test code = COMPATIBLE 2264) Unit ABO (test code = A Pos 6569769) UNIT NUMBER (test code = [id number] 934-0) Status (test code = RETURNED FROM ISSUE 3582395) Blood Bank Product (test RED BLOOD CELLS code = 2263) PRODUCT CODE (test code = B2342M96 933-2) [facility] [id number] 14:47:00 Test Item Value Reference Range Interpretation Comments Unit ABO (test code = A Pos 6997113) UNIT NUMBER (test code = [id number] 934-0) Status (test code = RETURNED FROM ISSUE 1260292) Blood Bank Product (test FFP code = 2263) PRODUCT CODE (test code = H2283X86 933-2) [facility] [id number] 14:47:00 Test Item Value Reference Range Interpretation Comments CROSSMATCH (test code = COMPATIBLE 2264) Unit ABO (test code = A Pos 8505012) UNIT NUMBER (test code = [id number] 934-0) Status (test code = RETURNED FROM ISSUE 4737616) Blood Bank Product (test RED BLOOD CELLS code = 2263) PRODUCT CODE (test code = L8906T81 933-2) [facility] [id number] 14:47:00 Test Item Value Reference Range Interpretation Comments Unit ABO (test code = A Pos 7018233) UNIT NUMBER (test code = [id number] 934-0) Status (test code = RETURNED FROM ISSUE 7393372) Blood Bank Product (test FFP code = 2263) PRODUCT CODE (test code = M8569D69 933-2) [facility] [id number] 14:47:00 Test Item Value Reference Range Interpretation Comments CROSSMATCH (test code = COMPATIBLE 2264) Unit ABO (test code = A Pos 1552609) UNIT NUMBER (test code = [id number] 934-0) Status (test code = RETURNED FROM ISSUE 15101028) Blood Bank Product (test RED BLOOD CELLS code = 2263) PRODUCT CODE (test code = T6034A06 933-2) [facility] [id number] 14:47:00 Test Item Value Reference Range Interpretation Comments Unit ABO (test code = A Pos 2561367) UNIT NUMBER (test code = [id number] 934-0) Status (test code = RETURNED FROM ISSUE 1553002) Blood Bank Product (test FFP code = 2263) PRODUCT CODE (test code = A7828M06 933-2) [facility]20[facility] 14:14:33 Test Item Value Reference Range Interpretation Comments PHOSPHORUS (BEAKER) (test code = 3.5 mg/dL 2.3-4.7 604) Curriculum Specialist ID - BSCBC W/PLT COUNT & AUTO [id number] 13:56:03 Test Item Value Reference Range Interpretation [...] 0-1 PERCENT (BEAKER) (test code = 2801) [id number] 13:40:15 Test Item Value Reference Range Interpretation Comments PARTIAL THROMBOPLASTIN TIME 40.7 seconds 22.5-36.0 H (BEAKER) (test code = 760) [id number] 13:40:14 Test Item Value Reference Range Interpretation Comments FIBRINOGEN LEVEL (BEAKER) (test 374 mg/dl 225-434 code = 658) PROTHROMBIN TIME/[id number] 13:40:08 Test Item Value Reference Range Interpretation Comments PROTIME (BEAKER) 21.5 seconds 11.9-14.2 H (test code = 759) INR (BEAKER) (test 1.89 See_Comment [Automat ed message] code = 370) The system [employer] generated this result transmitted ref erence range: <=5.90. The reference range was not used to int erpret this result as normal/abnormal . RECOMMENDED COUMADIN/WARFARIN INR THERAPY RANGESSTANDARD DOSE: 2.0 - 3.0 Includes: PROPHYLAXIS for venous thrombosis, systemic embolization; TREATMENT for venous thrombosis and/or pulmonary embolus.HIGH RISK: Target INR is 2.5-3.5 for patients with mechanical heart valves.CALCIUM, [id number] 13:38:49 Test Item Value Reference Range Interpretation Comments CALCIUM IONIZED (BEAKER) (test 1.13 mmol/L 1.12-1.27 code = 698) PH, BLOOD (BEAKER) (test code = 7.35 1810) GLUCOSE-STAT [id number] 13:37:55 Test Item Value Reference Range Interpretation Comments GLUCOSE RANDOM (BEAKER) (test code 187 mg/dL 70-110 H = 652) HGB/HCT (H&H) - STAT [id number] 13:37:55 Test Item Value Reference Range Interpretation Comments HEMOGLOBIN (BEAKER) (test code = 8.0 GM/DL 13.0-16.8 L 410) HEMATOCRIT (BEAKER) (test code = 24.0 % 40.0-50.0 L 411) BLOOD GAS, [id number] 13:37:54 Test Item Value Reference Range Interpretation [...] (test code = 1819) 94.0 SODIUM NA-STAT [id number] 13:37:41 Test Item Value Reference Range Interpretation Comments SODIUM (BEAKER) (test code = 381) 135 meq/L 136-145 L POTASSIUM-STAT [id number] 13:37:41 Test Item Value Reference Range Interpretation Comments POTASSIUM (BEAKER) (test code = 3.6 meq/L 3.6-5.5 379) Platelet [id number] 13:30:37 Test Item Value Reference Range Interpretation Comments Platelets (test code 136 See_Comment L [Autom ated = 777-3) message] The system which generated this result transmit dante reference range : 150 - 450 K/CU MM. The reference range was not u sed to interpret th is result as normal/abnormal . EMERSON (test code = EMERSON) Curriculum Specialist ID - [id number] Lab Interpretation Abnormal (test code = 75642-1) [facility] Center[facility] [id number] 13:30:37 Test Item Value Reference Range Interpretation Comments Platelets (test code 136 See_Comment L [Autom ated = 777-3) message] The system which generated this result transmit dante reference range : 150 - 450 K/CU MM. The reference range was not u sed to interpret th is result as normal/abnormal . EMERSON (test code = EMERSON) Curriculum Specialist ID - [id number] Lab Interpretation Abnormal (test code = 40918-6) [facility] [id number] 13:30:37 Test Item Value Reference Range Interpretation Comments Platelets (test code 136 See_Comment L [Autom ated = 777-3) message] The system which generated this result transmit dante reference range : 150 - 450 K/CU MM. The reference range was not u sed to interpret th is result as normal/abnormal . EMERSON (test code = EMERSON) Curriculum Specialist ID - [id number] Lab Interpretation Abnormal (test code = 17442-6) [facility] Center[facility] [id number] 13:30:37 Test Item Value Reference Range Interpretation Comments PLATELET COUNT (BEAKER) (test 136 K/CU MM 150-450 L code = 756) Curriculum Specialist ID - [id number], [id number] 13:24:01 Test Item Value Reference Range Interpretation Comments CALCIUM IONIZED (BEAKER) (test 1.23 mmol/L 1.12-1.27 code = 698) PH, BLOOD (BEAKER) (test code = 7.35 1810) HGB/HCT (H&H) - STAT [id number] 13:23:58 Test Item Value Reference Range Interpretation Comments HEMOGLOBIN (BEAKER) (test code = 8.2 GM/DL 13.0-16.8 L 410) HEMATOCRIT (BEAKER) (test code = 24.0 % 40.0-50.0 L 411) GLUCOSE-STAT [id number] 13:23:57 Test Item Value Reference Range Interpretation Comments GLUCOSE RANDOM (BEAKER) (test code 212 mg/dL 70-110 H = 652) BLOOD GAS, [id number] 13:23:56 Test Item Value Reference Range Interpretation [...] (BEAKER) (test code = 1819) 100.0 POTASSIUM-STAT [id number] 13:23:26 Test Item Value Reference Range Interpretation Comments POTASSIUM (BEAKER) (test code = 3.9 meq/L 3.6-5.5 379) SODIUM NA-STAT [id number] 13:23:25 Test Item Value Reference Range Interpretation Comments SODIUM (BEAKER) (test code = 381) 135 meq/L 136-145 L GLUCOSE-STAT [id number] 12:29:15 Test Item Value Reference Range Interpretation Comments GLUCOSE RANDOM (BEAKER) (test code 181 mg/dL 70-110 H = 652) HGB/HCT (H&H) - STAT [id number] 12:29:15 Test Item Value Reference Range Interpretation Comments HEMOGLOBIN (BEAKER) (test code = 8.3 GM/DL 13.0-16.8 L 410) HEMATOCRIT (BEAKER) (test code = 24.0 % 40.0-50.0 L 411) SODIUM NA-STAT [id number] 12:29:14 Test Item Value Reference Range Interpretation Comments SODIUM (BEAKER) (test code = 381) 133 meq/L 136-145 L BLOOD GAS, [id number] 12:29:13 Test Item Value Reference Range Interpretation [...] (BEAKER) (test code = 1819) 70.0 POTASSIUM-STAT [id number] 12:23:50 Test Item Value Reference Range Interpretation Comments POTASSIUM (BEAKER) (test code = 5.4 meq/L 3.6-5.5 379) HGB/HCT (H&H) - STAT [id number] 12:19:25 Test Item Value Reference Range Interpretation Comments HEMOGLOBIN (BEAKER) (test code = 7.8 GM/DL 13.0-16.8 L 410) HEMATOCRIT (BEAKER) (test code = 23.0 % 40.0-50.0 L 411) GLUCOSE-STAT [id number] 12:19:24 Test Item Value Reference Range Interpretation Comments GLUCOSE RANDOM (BEAKER) (test code 185 mg/dL 70-110 H = 652) BLOOD GAS, [id number] 12:19:23 Test Item Value Reference Range Interpretation [...] (test code = 1819) 70.0 SODIUM NA-STAT [id number] 12:19:23 Test Item Value Reference Range Interpretation Comments SODIUM (BEAKER) (test code = 381) 132 meq/L 136-145 L POTASSIUM-STAT [id number] 12:19:10 Test Item Value Reference Range Interpretation Comments POTASSIUM (BEAKER) (test code = 5.1 meq/L 3.6-5.5 379) Hemoglobin [id number] 12:09:07 Test Item Value Reference Range Interpretation [...] ADM Lab Interpretation Normal (test code = 95754-3) [facility] Center[facility] [id number] 12:09:07 Test Item Value Reference Range Interpretation [...] ADM Lab Interpretation Normal (test code = 38462-9) [facility] CenterH[facility] [id number] 12:09:07 Test Item Value Reference Range Interpretation [...] ADM Lab Interpretation Normal (test code = 41785-3) [facility] CenterHEMO[facility]IN [id number] 12:09:07 Test Item Value Reference Range Interpretation [...] 5.7- 6.4% indicates increased risk for diabetes (prediabetes)."Curriculum Specialist ID - ADM LACTIC ACID, [id number] 12:07:07 Test Item Value Reference Range Interpretation Comments LACTATE BLOOD 1.0 mmol/L 0.5-2.2 Specimen sligh tly ARTERIAL (2) (BEAKER) hemoly zed (test code = 2874) Curriculum Specialist ID - BSGLUCOSE-STAT [id number] 11:24:11 Test Item Value Reference Range Interpretation Comments GLUCOSE RANDOM (BEAKER) (test code 191 mg/dL 70-110 H = 652) HGB/HCT (H&H) - STAT [id number] 11:24:11 Test Item Value Reference Range Interpretation Comments HEMOGLOBIN (BEAKER) (test code = 7.9 GM/DL 13.0-16.8 L 410) HEMATOCRIT (BEAKER) (test code = 23.0 % 40.0-50.0 L 411) SODIUM NA-STAT [id number] 11:24:10 Test Item Value Reference Range Interpretation Comments SODIUM (BEAKER) (test code = 381) 132 meq/L 136-145 L BLOOD GAS, [id number] 11:24:09 Test Item Value Reference Range Interpretation [...] (test code = 1819) 80.0 LACTIC ACID, [id number] 11:12:30 Test Item Value Reference Range Interpretation Comments LACTATE BLOOD 1.1 mmol/L 0.5-2.2 Specimen sligh tly ARTERIAL (2) (BEAKER) hemoly zed (test code = 2874) Curriculum Specialist ID - BSPOTASSIUM-STAT [id number] 11:12:12 Test Item Value Reference Range Interpretation Comments POTASSIUM (BEAKER) (test code = 4.6 meq/L 3.6-5.5 379) HGB/HCT (H&H) - STAT [id number] 10:59:07 Test Item Value Reference Range Interpretation Comments HEMOGLOBIN (BEAKER) (test code = 8.9 GM/DL 13.0-16.8 L 410) HEMATOCRIT (BEAKER) (test code = 26.0 % 40.0-50.0 L 411) GLUCOSE-STAT [id number] 10:59:06 Test Item Value Reference Range Interpretation Comments GLUCOSE RANDOM (BEAKER) (test code 153 mg/dL 70-110 H = 652) SODIUM NA-STAT [id number] 10:59:05 Test Item Value Reference Range Interpretation Comments SODIUM (BEAKER) (test code = 381) 132 meq/L 136-145 L BLOOD GAS, [id number] 10:59:04 Test Item Value Reference Range Interpretation [...] (BEAKER) (test code = 1819) 80.0 POTASSIUM-STAT [id number] 10:58:12 Test Item Value Reference Range Interpretation Comments POTASSIUM (BEAKER) (test code = 5.3 meq/L 3.6-5.5 379) HGB/HCT (H&H) - STAT [id number] 08:47:12 Test Item Value Reference Range Interpretation Comments HEMOGLOBIN (BEAKER) (test code = 9.5 GM/DL 13.0-16.8 L 410) HEMATOCRIT (BEAKER) (test code = 28.0 % 40.0-50.0 L 411) GLUCOSE-STAT [id number] 08:47:11 Test Item Value Reference Range Interpretation Comments GLUCOSE RANDOM (BEAKER) (test code 121 mg/dL 70-110 H = 652) BLOOD GAS, [id number] 08:47:10 Test Item Value Reference Range Interpretation [...] (BEAKER) (test code = 1819) 95.0 CALCIUM, [id number] 08:46:35 Test Item Value Reference Range Interpretation Comments CALCIUM IONIZED (BEAKER) (test 1.12 mmol/L 1.12-1.27 code = 698) PH, BLOOD (BEAKER) (test code = 7.46 1810) POTASSIUM-STAT [id number] 08:46:14 Test Item Value Reference Range Interpretation Comments POTASSIUM (BEAKER) (test code = 3.7 meq/L 3.6-5.5 379) SODIUM NA-STAT [id number] 08:46:13 Test Item Value Reference Range Interpretation Comments SODIUM (BEAKER) (test code = 381) 135 meq/L 136-145 L [id number] 05:26:11 Test Item Value Reference Range Interpretation Comments TSH (test code = 1.491 See_Comment [Automated 93661-7) message] The system which generated this result transmit dante reference range : 0.350 - 4.940 uIU/mL. The reference range was not used to interpret this result as normal/abnormal . EMERSON (test code = EMERSON) Curriculum Specialist ID Patrick Krishna Lab Interpretation Normal (test code = 55297-5) [place] [id number] 05:26:11 Test Item Value Reference Range Interpretation Comments TSH (test code = 1.491 See_Comment [Automated 56813-6) message] The system which generated this result transmit dante reference range : 0.350 - 4.940 uIU/mL. The reference range was not used to interpret this result as normal/abnormal . EMERSON (test code = EMERSON) Curriculum Specialist ID - MARZENA M Lab Interpretation Normal (test code = 59504-9) [place] [id number] 05:26:11 Test Item Value Reference Range Interpretation Comments TSH (test code = 1.491 See_Comment [Automated 25906-0) message] The system which generated this result transmit dante reference range : 0.350 - 4.940 uIU/mL. The reference range was not used to interpret this result as normal/abnormal . EMERSON (test code = EMERSON) Curriculum Specialist ID - MARZENA M Lab Interpretation Normal (test code = 28212-4) [place] [id number] 05:26:11 Test Item Value Reference Range Interpretation Comments THYROID STIMULATING HORMONE 1.491 uIU/mL 0.350-4.940 (BEAKER) (test code = 772) Curriculum Specialist ID Patrick IVAN MLipid [id number] 04:13:29 Test Item Value Reference Range Interpretation Comments Triglycerides (test 49 mg/dL code = 2571-8) Cholesterol (test code 92 mg/dL = 3-3) HDL (test code = 43 mg/dL 2085-04) LDL Calculated (test 39 mg/dL code = 17850-9) EMERSON (test code = EMERSON) Triglyceride Reference Range: Low Risk <150 Borderline 150-199 High Risk 200-499 Very High Risk >=500 Cholesterol Reference Range: Low Risk <200 Borderline 200-239 High Risk >240 HDL Cholesterol Reference Range: Low Risk >=60 High Risk <40 LDL Cholesterol Reference Range: Optimal <100 Near Optimal 100-129 Borderline 130-159 High 160-189 Very High >=190 Curriculum Specialist ID - BSOperator ID - BS [facility] Center[facility] [id number] 04:13:29 Test Item Value Reference Range Interpretation Comments Triglycerides (test 49 mg/dL code = 2571-8) Cholesterol (test code 92 mg/dL = 3-3) HDL (test code = 43 mg/dL 2085-04) LDL Calculated (test 39 mg/dL code = 28826-3) EMERSON (test code = EMERSON) Triglyceride Reference Range: Low Risk <150 Borderline 150-199 High Risk 200-499 Very High Risk >=500 Cholesterol Reference Range: Low Risk <200 Borderline 200-239 High Risk >240 HDL Cholesterol Reference Range: Low Risk >=60 High Risk <40 LDL Cholesterol Reference Range: Optimal <100 Near Optimal 100-129 Borderline 130-159 High 160-189 Very High >=190 Curriculum Specialist ID - BSOperator ID - BS [facility] CenterLipid [id number] 04:13:29 Test Item Value Reference Range Interpretation Comments Triglycerides (test 49 mg/dL code = 2571-8) Cholesterol (test code 92 mg/dL = 3-3) HDL (test code = 43 mg/dL 9) LDL Calculated (test 39 mg/dL code = 46569-0) EMERSON (test code = EMERSON) Triglyceride Reference Range: Low Risk <150 Borderline 150-199 High Risk 200-499 Very High Risk >=500 Cholesterol Reference Range: Low Risk <200 Borderline 200-239 High Risk >240 HDL Cholesterol Reference Range: Low Risk >=60 High Risk <40 LDL Cholesterol Reference Range: Optimal <100 Near Optimal 100-129 Borderline 130-159 High 160-189 Very High >=190 Curriculum Specialist ID - BSOperator ID - BS [facility] [id number] 04:13:29 Test Item Value Reference Range Interpretation [...] Borderline 130-159 High 160-189 Very High >=190 Curriculum Specialist ID - BSOperator ID- BSCBC W/PLT COUNT & AUTO [id number] 03:49:38 Test Item Value Reference Range Interpretation [...] (BEAKER) (test code = 2801) COMPREHENSIVE METABOLIC [id number] 03:30:53 Test Item Value Reference Range Interpretation [...] S NOT APPLICABLE FOR DIALYSIS PATIEN TS. Curriculum Specialist ID - CITKCFRKTNQ1194-49-59 03:30:53 Test Item Value Reference Range Interpretation Comments MAGNESIUM (BEAKER) (test code = 2.3 mg/dL 1.6-2.6 627) Curriculum Specialist ID - [id number] 03:22:52 Test Item Value Reference Range Interpretation Comments PARTIAL THROMBOPLASTIN TIME 67.2 seconds 22.5-36.0 H (BEAKER) (test code = 760) PROTHROMBIN TIME/[id number] 03:21:30 Test Item Value Reference Range Interpretation Comments PROTIME (BEAKER) 15.3 seconds 11.9-14.2 H (test code = 759) INR (BEAKER) (test 1.23 See_Comment [Automat ed message] code = 370) The system [employer] generated this result transmitted ref erence range: <=5.90. The reference range was not used to int erpret this result as normal/abnormal . RECOMMENDED COUMADIN/WARFARIN INR THERAPY RANGESSTANDARD DOSE: 2.0 - 3.0 Includes: PROPHYLAXIS for venous thrombosis, systemic embolization; TREATMENT for venous thrombosis and/or pulmonary embolus.HIGH RISK: Target INR is 2.5-3.5 for patients with mechanical heart valves.BLOOD GAS, [id number] 03:08:40 Test Item Value Reference Range Interpretation [...] (BEAKER) (test code = 1819) 21.0 POCT-GLUCOSE [id number] 21:21:10 Test Item Value Reference Range Interpretation Comments POC-GLUCOSE METER 163 mg/dL 70-110 H : TESTED A T [facility] 6720 (BEAKER) (test code = [place], 1538) [address]: Curriculum Specialist/Techni bart ID = [id number] for GLORIA VALDERRAMA PROTHROMBIN TIME/[id number] 20:13:27 Test Item Value Reference Range Interpretation Comments PROTIME (BEAKER) 15.3 seconds 11.9-14.2 H (test code = 759) INR (BEAKER) (test 1.23 See_Comment [Automat ed message] code = 370) The system [employer] generated this result transmitted ref erence range: <=5.90. The reference range was not used to int erpret this result as normal/abnormal . RECOMMENDED COUMADIN/WARFARIN INR THERAPY RANGESSTANDARD DOSE: 2.0 - 3.0 Includes: PROPHYLAXIS for venous thrombosis, systemic embolization; TREATMENT for venous thrombosis and/or pulmonary embolus.HIGH RISK: Target INR is 2.5-3.5 for patients with mechanical heart valves.[id number] 18:18:05 Test Item Value Reference Range Interpretation Comments PARTIAL THROMBOPLASTIN TIME 65.4 seconds 22.5-36.0 H (BEAKER) (test code = 760) POCT-GLUCOSE [id number] 17:26:15 Test Item Value Reference Range Interpretation Comments POC-GLUCOSE METER 146 mg/dL 70-110 H : Notified RN/MD: (BRAXTON) (test code = TESTED AT [place] [address]) [facility], [address]: Curriculum Specialist/Techni bart ID = [id number] for LL OYD TIKEYA POCT-GLUCOSE [id number] 11:21:58 Test Item Value Reference Range Interpretation Comments POC-GLUCOSE METER 142 mg/dL 70-110 H : Notified RN/MD: (BRAXTON) (test code = TESTED AT [place] [address]) [facility], [address]: Curriculum Specialist/Techni bart ID = [id number] for LL OYD, TIKEYA [id number] 11:20:08 Test Item Value Reference Range Interpretation Comments PARTIAL THROMBOPLASTIN TIME 78.4 seconds 22.5-36.0 H [facility] (test code = 760) POCT-GLUCOSE [id number] 08:18:13 Test Item Value Reference Range Interpretation Comments POC-GLUCOSE METER 154 mg/dL 70-110 H : Notified RN/MD: (BRAXTON) (test code = TESTED AT [place] [address]) [facility], [address]: Curriculum Specialist/Techni bart ID = [id number] for LL OYD, TIKEYA [id number] 06:28:05 Test Item Value Reference Range Interpretation Comments MAGNESIUM (BEAKER) (test code = 2.2 mg/dL 1.6-2.6 627) Curriculum Specialist ID - KEARA WBASIC METABOLIC [id number] 06:28:04 Test Item Value Reference Range Interpretation [...] S NOT APPLICABLE FOR DIALYSIS PATIEN TS. Curriculum Specialist ID - KEARA WCBC W/PLT COUNT & AUTO [id number] 05:57:11 Test Item Value Reference Range Interpretation [...] 0-1 PERCENT (BEAKER) (test code = 2801) [id number] 05:39:02 Test Item Value Reference Range Interpretation Comments PARTIAL THROMBOPLASTIN TIME 55.5 seconds 22.5-36.0 H (BEAKER) (test code = 760) BLOOD GAS, [id number] 05:24:42 Test Item Value Reference Range Interpretation [...] FIO2 (BEAKER) (test code = 1819) 21.0 [id number] 23:08:23 Test Item Value Reference Range Interpretation Comments PARTIAL THROMBOPLASTIN TIME 55.5 seconds 22.5-36.0 H (BEAKER) (test code = 760) POCT-GLUCOSE [id number] 21:56:54 Test Item Value Reference Range Interpretation Comments POC-GLUCOSE METER 108 mg/dL 70-110 : TESTED A T [facility] 6720 (BEAKER) (test code = [place], 1538) 795[address]: Curriculum Specialist/Techni bart ID = [id number] for Sharon Sol Transesophageal [id number] 21:03:33Ejection FractionSLE ECHO HEARTLAB [facility] [id number] 21:03:33Ejection FractionSLEH ECHO HEARTLAB MKCKESSON [facility] CenterTrans[facility] [id number] 21:03:33Ejection FractionSLEH ECHO HEARTLAB MKCK[facility]ON [facility] CenterPO[facility]GLUCOSE [id number] 17:16:14 Test Item Value Reference Range Interpretation Comments POC-GLUCOSE METER 112 mg/dL 70-110 H : TESTED A T [facility] 6720 (BEAKER) (test code = DOMIN[place], 1538) 748[address]: Curriculum Specialist/Techni bart ID = [id number] for AL KEEGAN NICOLE NAHED B-type Natriuretic Factor (BNP)2021-09-05 17:13:19 Test Item Value Reference Range Interpretation Comments BNP (test code = 05862-9) 427 pg/mL 0-100 H EMERSON (test code = EMERSON) Curriculum Specialist ID - BS Lab Interpretation (test Abnormal code = 91971-1) [facility] (BNP)2021-09-05 17:13:19 Test Item Value Reference Range Interpretation Comments BNP (test code = 65783-9) 427 pg/mL 0-100 H EMERSON (test code = EMERSON) Curriculum Specialist ID - BS Lab Interpretation (test Abnormal code = 96674-6) [facility] Center[facility] (BNP)2021-09-05 17:13:19 Test Item Value Reference Range Interpretation Comments BNP (test code = 81560-8) 427 pg/mL 0-100 H EMERSON (test code = EMERSON) Curriculum Specialist ID - BS Lab Interpretation (test Abnormal code = 11606-2) [facility] Center[facility] NATRIURET[facility] FACTOR (BNP)2021-09-05 17:13:19 Test Item Value Reference Range Interpretation Comments B-TYPE NATRIURETIC PEPTIDE (BEAKER) 427 pg/mL 0-100 H (test code = 700) Curriculum Specialist ID - SHIWQPJXRSK6333-91-99 17:08:24 Test Item Value Reference Range Interpretation Comments MAGNESIUM (BEAKER) (test code = 2.3 mg/dL 1.6-2.6 627) Curriculum Specialist ID - BSBASIC METABOLIC [id number] 17:08:23 Test Item Value Reference Range Interpretation [...] S NOT APPLICABLE FOR DIALYSIS PATIEN TS. Curriculum Specialist ID - [id number] 16:56:34 Test Item Value Reference Range Interpretation Comments PARTIAL THROMBOPLASTIN TIME 78.6 seconds 22.5-36.0 H (BEAKER) (test code = 760) POCT-GLUCOSE [id number] 11:40:10 Test Item Value Reference Range Interpretation Comments POC-GLUCOSE METER 123 mg/dL 70-110 H : [facility] ([facility]) (test code = [facility], 1538) 50742: Curriculum Specialist/Techni bart ID = [id number] for BL UE, HERIBERTO [id number] 08:48:28 Test Item Value Reference Range Interpretation Comments PARTIAL THROMBOPLASTIN TIME 50.1 seconds 22.5-36.0 H (BEAKER) (test code = 760) POCT-GLUCOSE [id number] 08:33:40 Test Item Value Reference Range Interpretation Comments POC-GLUCOSE METER 83 mg/dL 70-110 : TESTED A T [facility] 6720 ([facility]) (test code = [facility], 1538) 83003: Curriculum Specialist/Techni bart ID = [id number] for MELANIE SO NICOLETHOMASA Carotid doppler [id number] 07:35:52Ejection FractionSLEH ECHO HEARTLAB MKCKESSON [facility] CenterCarotid doppler [id number] 07:35:52Ejection FractionSLEH ECHO HEARTLAB [facility] CenterCarotid doppler [id number] 07:35:52Ejection FractionSLEH ECHO HEARTLAB [facility] CenterAPTT2022-01-18 05:35:19 Test Item Value Reference Range Interpretation Comments PARTIAL THROMBOPLASTIN TIME > seconds 22.5-36.0 HH (BEAKER) (test code = 760) RAD, CHEST, 1 VIEW, NON [id number] 05:07:00Reason for exam:->Respiratory failureShould this be performed at the bedside?->[facility] 1945 Sex: MFINAL REPORT RAD, CHEST, 1 VIEW, NON DEPT INDICATION: Respiratory failure COMPARISON: Prior day's exam FINDINGS: Portable frontal view of the chest. IMPRESSION: Lungs and pleura: Bilateral pulmonary opacities are reduced. No pneumothorax.Heart and mediastinum: Stable contours. Additional findings: None. Signed: Link Pak Verified Date/Time: 09/05/2021 05:07:55 [id number] 05:06:53 Test Item Value Reference Range Interpretation Comments MAGNESIUM (BEAKER) (test code = 2.3 mg/dL 1.6-2.6 627) Curriculum Specialist ID - SHANE GBASIC METABOLIC [id number] 05:06:52 Test Item Value Reference Range Interpretation [...] S NOT APPLICABLE FOR DIALYSIS PATIEN TS. Curriculum Specialist ID - SHANE GVancomycin level, [id number] 05:03:34 Test Item Value Reference Range Interpretation Comments Vancomycin Tr (test code = 7.0 ug/mL 10.0-20.0 L 4092-3) EMERSON (test code = EMERSON) Curriculum Specialist ID - SHANE G Lab Interpretation (test Abnormal code = 20557-0) [facility] CenterVancomycin level, [id number] 05:03:34 Test Item Value Reference Range Interpretation Comments Vancomycin Tr (test code = 7.0 ug/mL 10.0-20.0 L 4092-3) EMERSON (test code = EMERSON) Curriculum Specialist ID - SHANE G Lab Interpretation (test Abnormal code = 10920-0) [facility] CenterVancomycin level, [id number] 05:03:34 Test Item Value Reference Range Interpretation Comments Vancomycin Tr (test code = 7.0 ug/mL 10.0-20.0 L 4092-3) EMERSON (test code = EMERSON) Curriculum Specialist ID - SHANE G Lab Interpretation (test Abnormal code = 69372-6) [facility] CenterVANCOMYCIN LEVEL, [id number] 05:03:34 Test Item Value Reference Range Interpretation Comments VANCOMYCIN TROUGH (BEAKER) (test 7.0 ug/mL 10.0-20.0 L code = 522) Curriculum Specialist ID - SHANE BOYD, [id number] 04:54:51 Test Item Value Reference Range Interpretation [...] (BEAKER) (test code = 1819) 21.0 POCT-GLUCOSE [id number] 00:08:56 Test Item Value Reference Range Interpretation Comments POC-GLUCOSE METER 92 mg/dL 70-110 : TESTED A T [facility] 6720 (BEAKER) (test code [facility], = 1538) 87405: Curriculum Specialist/Techni bart ID = [id number] for Christopher Hoskins [id number] 22:59:43 Test Item Value Reference Range Interpretation Comments PARTIAL THROMBOPLASTIN TIME 105.5 seconds 22.5-36.0 H (BEAKER) (test code = 760) POCT-GLUCOSE [id number] 22:43:54 Test Item Value Reference Range Interpretation Comments POC-GLUCOSE METER 131 mg/dL 70-110 H : TESTED A T [facility] 6720 (BEAKER) (test [facility] = [facility] 1538) [address]: Curriculum Specialist/Techni bart ID = [id number] for ANDI MIGUEL BASIC METABOLIC [id number] 20:21:48 Test Item Value Reference Range Interpretation [...] S NOT APPLICABLE FOR DIALYSIS PATIEN TS. Curriculum Specialist ID - IYLDGKRHWWK6237-56-27 20:21:48 Test Item Value Reference Range Interpretation Comments MAGNESIUM (BEAKER) (test code = 2.4 mg/dL 1.6-2.6 627) Curriculum Specialist ID - DBBLOOD GAS, [id number] 18:19:48 Test Item Value Reference Range Interpretation [...] (BEAKER) (test code = 1819) 21.0 POCT-GLUCOSE [id number] 18:13:29 Test Item Value Reference Range Interpretation Comments POC-GLUCOSE METER 98 mg/dL 70-110 : [facility] (BEAKER) (test code = [place], 1538) 29[address]: Curriculum Specialist/Techni bart ID = [id number] for NAHED JOHN [id number] 15:50:51 Test Item Value Reference Range Interpretation Comments PARTIAL THROMBOPLASTIN TIME 79.7 seconds 22.5-36.0 H (BEAKER) (test code = 760) [id number] 14:42:01 Test Item Value Reference Range Interpretation Comments PARTIAL THROMBOPLASTIN TIME 196.8 seconds 22.5-36.0 HH (BEAKER) (test code = 760) [id number] 13:31:24 Test Item Value Reference Range Interpretation Comments PARTIAL THROMBOPLASTIN TIME > seconds 22.5-36.0 HH (BEAKER) (test code = 760) POCT-GLUCOSE [id number] 12:32:34 Test Item Value Reference Range Interpretation Comments POC-GLUCOSE METER 96 mg/dL 70-110 : TESTED A T [facility] 6720 (BEAKER) (test code = [facility], 1538) 44173: Curriculum Specialist/Techni bart ID = [id number] for NAHED JOHN POCT-GLUCOSE [id number] 09:39:48 Test Item Value Reference Range Interpretation Comments POC-GLUCOSE METER 93 mg/dL 70-110 : TESTED A T [facility] 6720 (BEAKER) (test code = [facility], 1538) 38784: Curriculum Specialist/Techni bart ID = [id number] for NAHED JOHN [id number] 05:38:09 Test Item Value Reference Range Interpretation Comments MAGNESIUM (BEAKER) (test code = 2.2 mg/dL 1.6-2.6 627) Curriculum Specialist ID - PIAYA LBASIC METABOLIC [id number] 05:38:08 Test Item Value Reference Range Interpretation [...] S NOT APPLICABLE FOR DIALYSIS PATIEN TS. Curriculum Specialist ID - PIAYA [id number] 05:37:51 Test Item Value Reference Range Interpretation Comments PARTIAL THROMBOPLASTIN TIME 74.7 seconds 22.5-36.0 H (BEAKER) (test code = 760) BLOOD GAS, [id number] 05:36:41 Test Item Value Reference Range Interpretation [...] 1819) 21.0 CBC W/PLT COUNT & AUTO [id number] 05:07:56 Test Item Value Reference Range Interpretation [...] = 2801) RAD, CHEST, 1 VIEW, NON [id number] 04:31:00Reason for exam:->Respiratory failureShould this be performed at the bedside?->[facility] 1945 Sex: MFINAL REPORT RAD, CHEST, 1 VIEW, NON DEPT INDICATION: Respiratory failure COMPARISON: Prior day's exam FINDINGS: Portable frontal view of the chest. IMPRESSION: Support Lines: None Lungs and pleura: Reduced airspace and pleural opacities. No pneumothorax.Heart and mediastinum: Stable contours. Additional findings: None. Signed: Link Pak Verified Date/Time: 09/04/2021 04:31:46 POCT-GLUCOSE [id number] 22:15:29 Test Item Value Reference Range Interpretation Comments POC-GLUCOSE METER 113 mg/dL 70-110 H : TESTED A T [facility] 6720 (BEAKER) (test code = [facility] [place], 1538) 69[address]: Curriculum Specialist/Techni bart ID = [id number] for THEODORA CovingtonTyrelEVAN Barrera [id number] 17:34:10 Test Item Value Reference Range Interpretation Comments Procalcitonin (test code = 0.74 ng/mL <0.05 H 73007-0) EMERSON (test code = EMERSON) SEPSIS RISK (ng/mL)Low: 0.05-0.50Intermedia te: 0.51-2.00High: >=2.01 Lab Interpretation (test Abnormal code = 46939-7) [facility] CenterBzpuneBqqicwzwkgqqn6862-41-25 17:34:10 Test Item Value Reference Range Interpretation Comments Procalcitonin (test code = 0.74 ng/mL <0.05 H 19216-8) EMERSON (test code = EMERSON) SEPSIS RISK (ng/mL)Low: 0.05-0.50Intermedia te: 0.51-2.00High: >=2.01 Lab Interpretation (test Abnormal code = 61588-2) [facility] CenterKlvzqmBqwzqytusfevm3494-01-99 17:34:10 Test Item Value Reference Range Interpretation Comments Procalcitonin (test code = 0.74 ng/mL <0.05 H 00898-1) EMERSON (test code = EMERSON) SEPSIS RISK (ng/mL)Low: 0.05-0.50Intermedia te: 0.51-2.00High: >=2.01 Lab Interpretation (test Abnormal code = 85015-5) [facility] CenterHegqliNGVZVCYXMOALD8164-72-79 17:34:10 Test Item Value Reference Range Interpretation Comments PROCALCITONIN (BEAKER) (test code 0.74 ng/mL <0.05 H = 3036) SEPSIS RISK (ng/mL)Low: 0.05-0.50Intermediate: 0.51-2.00High: >=2.01BASIC METABOLIC [id number] 17:02:45 Test Item Value Reference Range Interpretation [...] S NOT APPLICABLE FOR DIALYSIS PATIEN TS. Curriculum Specialist ID - [id number] 17:02:45 Test Item Value Reference Range Interpretation Comments MAGNESIUM (BEAKER) (test code = 2.3 mg/dL 1.6-2.6 627) Curriculum Specialist ID - DBPOCT-GLUCOSE [id number] 16:39:27 Test Item Value Reference Range Interpretation Comments POC-GLUCOSE METER 102 mg/dL 70-110 : TESTED A T [facility] 6720 (BEAKER) (test code = [place], 1538) 37332: Curriculum Specialist/Techni bart ID = [id number] for Eduardo Brown BLOOD GAS, [id number] 16:20:14 Test Item Value Reference Range Interpretation [...] 2D Echo W/Doppler(CW/PW/Color)2021-09-03 14:12:53Ejection FractionSLEH ECHO [facility] W/Doppler(CW/PW/Color)2021-09-03 14:12:53Ejection FractionSLEH ECHO [facility] W/Doppler(CW/PW/Color) 2021-09-03 14:12:53Ejection FractionSLE ECHO HEARTLAB [facility]UM2022-01-16 07:54:36 Test Item Value Reference Range Interpretation Comments MAGNESIUM (BEAKER) (test code = 2.4 mg/dL 1.6-2.6 627) Curriculum Specialist ID - ZACMARIELA LRAD, CHEST, 1 VIEW, NON [id number] 06:39:00Reason for exam:->Respiratory failureShould this be performed at the bedside?->Yes [facility] 1945 Sex: MFINAL [...] MDReport Verified Date/Time: 09/03/2021 06:39:59 BASIC METABOLIC [id number] 05:41:02 Test Item Value Reference Range Interpretation [...] S NOT APPLICABLE FOR DIALYSIS PATIEN TS. Curriculum Specialist ID - KAYLEEN LBLOOD GAS, [id number] 05:28:49 Test Item Value Reference Range Interpretation [...] = 1819) 50.0 High Sensitivity Troponin I ([facility]/Suraj Only)2021-09-03 05:25:39 Test Item Value Reference Range Interpretation Comments Troponin I HS (test 35 pg/ml See_Comment [Repairogen code = 12477-8) message] The system which generated this result transmitted reference range : <=35. The reference range was not used to interpret this result as normal/abnormal . EMERSON (test code = Curriculum Specialist ID - EMERSON) KAYLEEN Shipzi PRINT BINDING WORKER STAT High Sensitivity Troponin-I results should be used in conjunction with other diagnostic information such as ECG, clinical observations and information, and patient symptoms to aid in the diagnosis of [place]. Lab Interpretation Normal (test code = 60146-3) [facility] Center[facility]rop[facility] ([facility]/Suraj Only) 2021-09-03 05:25:39 Test Item Value Reference Range Interpretation Comments Troponin I HS (test 35 pg/ml See_Comment [Repairogen code = 33400-2) message] The system which generated this result transmitted reference range : <=35. The reference range was not used to interpret this result as normal/abnormal . EMERSON (test code = Curriculum Specialist ID - EMERSON) KAYLEEN Glasses Directhe PRINT BINDING WORKER STAT High Sensitivity Troponin-I results should be used in conjunction with other diagnostic information such as ECG, clinical observations and information, and patient symptoms to aid in the diagnosis of [place]. Lab Interpretation Normal (test code = 20046-2) [facility] Center[facility] Troponin [facility] ([facility]/Suraj Only) 2021-09-03 05:25:39 Test Item Value Reference Range Interpretation Comments Troponin I HS (test 35 pg/ml See_Comment [Automa dante code = 56418-6) message] The system which generated this result transmitted reference range : <=35. The reference range was not used to interpret this result as normal/abnormal . EMERSON (test code = Curriculum Specialist ID - EMERSON) KAYLEEN LThe PRINT BINDING WORKER STAT High Sensitivity Troponin-I results should be used in conjunction with other diagnostic information such as ECG, clinical observations and information, and patient symptoms to aid in the diagnosis of [place]. Lab Interpretation Normal (test code = 31764-1) [facility] CenterHIGH SENSITIVITY TROPONIN [id number] 05:25:39 Test Item Value Reference Range Interpretation Comments HIGH SENSITIVITY 35 pg/ml See_Comment [Automated message] TROPONIN I (test code = The system which [id number]) generated this result transmitted ref erence range: <=35. Th e reference range was not used to int erpret this result as normal/abnormal . Curriculum Specialist ID - KAYLEEN LThe PRINT BINDING WORKER STAT High Sensitivity Troponin-I results should be used in conjunction with other diagnostic information such as ECG, clinical observations and information, and patient symptoms to aid in the diagnosis of [place].B-TYPE NATRIURETIC FACTOR (BNP)2021-09-03 05:25:38 Test Item Value Reference Range Interpretation Comments B-TYPE NATRIURETIC PEPTIDE 1522 pg/mL 0-100 H (BEAKER) (test code = 700) Curriculum Specialist ID - KAYLEEN LLactic acid, [id number] 05:08:12 Test Item Value Reference Range Interpretation Comments Lactate, Venous (test code 0.98 mmol/L 0.50-2.20 = 2872) EMERSON (test code = EMERSON) Curriculum Specialist ID - KAYLEEN L Lab Interpretation (test Normal code = 27004-9) [facility] CenterLactic acid, [id number] 05:08:12 Test Item Value Reference Range Interpretation Comments Lactate, Venous (test code 0.98 mmol/L 0.50-2.20 = 2872) EMERSON (test code = EMERSON) Curriculum Specialist ID - KAYLEEN L Lab Interpretation (test Normal code = 23938-3) [facility] CenterLactic acid, [id number] 05:08:12 Test Item Value Reference Range Interpretation Comments Lactate, Venous (test code 0.98 mmol/L 0.50-2.20 = 2872) EMERSON (test code = EMERSON) Curriculum Specialist ID - KAYLEEN L Lab Interpretation (test Normal code = 66992-0) [facility] CenterLACTIC ACID, [id number] 05:08:12 Test Item Value Reference Range Interpretation Comments LACTATE BLOOD VENOUS (2) (BEAKER) 0.98 mmol/L 0.50-2.20 (test code = 2872) Curriculum Specialist ID - KAYLEEN LCBC W/PLT COUNT & AUTO [id number] 04:46:58 Test Item Value Reference Range Interpretation [...] (test code = 2801) HIGH SENSITIVITY TROPONIN [id number] 23:24:52 Test Item Value Reference Range Interpretation Comments HIGH SENSITIVITY 60 pg/ml See_Comment H [Automated message] TROPONIN I (test code = The system which [id number]) generated this result transmitted ref erence range: <=35. Th e reference range was not used to int erpret this result as normal/abnormal . Curriculum Specialist ID - PIAYA LThe PRINT BINDING WORKER STAT High Sensitivity Troponin-I results should be used in conjunction with other diagnostic information such as ECG, clinical observations and information, and patient symptoms to aid in the diagnosis of [place].LACTIC ACID, [id number] 23:16:31 Test Item Value Reference Range Interpretation Comments LACTATE BLOOD VENOUS 2.39 mmol/L 0.50-2.20 H Specime n slightly (2) (BEAKER) (test hemolyzed code = 3697) Curriculum Specialist ID - PIAYA LBASIC METABOLIC [id number] 20:00:02 Test Item Value Reference Range Interpretation [...] S NOT APPLICABLE FOR DIALYSIS PATIEN TS. Curriculum Specialist ID - DBLACTIC ACID, [id number] 19:50:59 Test Item Value Reference Range Interpretation Comments LACTATE BLOOD VENOUS 3.70 mmol/L 0.50-2.20 H Specime n slightly (2) (BEAKER) (test hemolyzed code = 4702) Curriculum Specialist ID - DYOPDYALHQIYEYQ2322-45-84 18:48:36 Test Item Value Reference Range Interpretation Comments PROCALCITONIN (BRAXTON) (test code = < ng/mL <0.05 3036) SEPSIS RISK (ng/mL)Low: 0.05-0.50Intermediate: 0.51-2.00High: >=2.01B-TYPE NATRIURETIC FACTOR (BNP)2021-09-02 18:06:28 Test Item Value Reference Range Interpretation Comments B-TYPE NATRIURETIC PEPTIDE (ELINAAKER) 801 pg/mL 0-100 H (test code = 700) Curriculum Specialist ID - DBHIGH SENSITIVITY TROPONIN [id number] 18:06:07 Test Item Value Reference Range Interpretation Comments HIGH SENSITIVITY 10 pg/ml See_Comment [Automated message] TROPONIN I (test code = The system which [id number]) generated this result transmitted ref erence range: <=35. Th e reference range was not used to int erpret this result as normal/abnormal . Curriculum Specialist ID - DBThe PRINT BINDING WORKER STAT High Sensitivity Troponin-I results should be used in conjunctionwith other diagnostic information such as ECG, clinical observations and information, and patient symptoms to aid in the diagnosis of [place].LACTIC ACID, [id number] 18:03:35 Test Item Value Reference Range Interpretation Comments LACTATE BLOOD 5.0 mmol/L 0.5-2.2 HH Specimen sligh tly ARTERIAL (2) (BEAKER) hemoly zed (test code = 2874) Curriculum Specialist ID - DBRAD, CHEST, 1 VIEW, NON [id number] 18:01:00Reason for exam:- >dyspneaShould this be performed at the bedside?->Yes [facility] 1945 Sex: MFINAL REPORT RAD, CHEST, 1 VIEW, NON DEPT INDICATION: dyspnea COMPARISON: 07/03/21 FINDINGS: Portable frontal view of the chest. IMPRESSION: Support Lines: Overlying leads Lungs andpleura: Bibasilar airspace disease and small bilateral effusions, compatible with mild volume overload. No significant pneumothorax. Heart and mediastinum: Normal contours. Additional findings: None. Signed: Gaby Cordero Verified Date/Time: 09/02/2021 18:01:04 -[id number] 17:41:20 Test Item Value Reference Range Interpretation Comments POC-Glucose (test code = 245 mg/dL 70-110 H : T ESTED AT [facility] 1855) [address] [place] [address], 770 30: Curriculum Specialist/Techni bart ID = [id number] for NAVDEEP ROLLINS Lab Interpretation (test Abnormal code = 07783-4) [facility] CenterPOCT-[id number] 17:41:20 Test Item Value Reference Range Interpretation Comments POC-Glucose (test code = 245 mg/dL 70-110 H : [facility] [address] [place] [address], 770 30: Curriculum Specialist/Techni bart ID = [id number] for RIA, NAVDEEP Lab Interpretation (test Abnormal code = 10992-5) [facility] CenterPOCT-[id number] 17:41:20 Test Item Value Reference Range Interpretation Comments POC-Glucose (test code = 245 mg/dL 70-110 H : T ESTED AT [facility] 1855) [address] [facility], 770 30: Curriculum Specialist/Techni bart ID = [id number] for RIA, NAVDEEP Lab Interpretation (test Abnormal code = 78207-8) [facility] CenterPOCT-[id number] 17:41:20 Test Item Value Reference Range Interpretation Comments POC-GLUCOSE (BEAKER) 245 mg/dL 70-110 H : TESTE D AT [facility] 6720 (test code = 1855) [facility], [address]: Curriculum Specialist/Techni bart ID = [id number] for PAIG E, NAVDEEP BYBG-[id number] 17:41:19 Test Item Value Reference Range Interpretation Comments POC-Hemoglobin (test code 12.2 g/dL 13.0-16.8 L : TESTED AT [facility] = 1856) [address] [facility], 770 30: Curriculum Specialist/Techni bart ID = [id number] for RIA, NAVDEEP Lab Interpretation (test Abnormal code = 96505-3) [facility]-[id number] 17:41:19 Test Item Value Reference Range Interpretation Comments POC-Hematocrit (test code 36 % 40-50 L : = 1857) Curriculum Specialist/Techni bart ID = [id number] for RIA, NAVDEEP Lab Interpretation (test Abnormal code = 94224-3) [facility] CenterFcidsnUMZZ-[id number] 17:41:19 Test Item Value Reference Range Interpretation Comments POC-Hemoglobin (test code 12.2 g/dL 13.0-16.8 L : TESTED AT [facility] = 1856) [address] [facility], 770 30: Curriculum Specialist/Techni bart ID = [id number] for RIA, NAVDEEP Lab Interpretation (test Abnormal code = 46277-2) [facility]-[id number] 17:41:19 Test Item Value Reference Range Interpretation Comments POC-Hematocrit (test code 36 % 40-50 L : = 1857) Curriculum Specialist/Techni bart ID = [id number] for RIA, NAVDEEP Lab Interpretation (test Abnormal code = 34816-0) [facility] CenterWcyemtXEEI-[id number] 17:41:19 Test Item Value Reference Range Interpretation Comments POC-Hemoglobin (test code 12.2 g/dL 13.0-16.8 L : TESTED AT [facility] = 1856) [address] [facility], 770 30: Curriculum Specialist/Techni bart ID = [id number] for RIA, NAVDEEP Lab Interpretation (test Abnormal code = 16383-4) [facility] CenterAydvlwXTDM-RSPTNCMLXL2894-73-15 17:41:19 Test Item Value Reference Range Interpretation Comments POC-Hematocrit (test code 36 % 40-50 L : = 1857) Curriculum Specialist/Techni bart ID = [id number] for RIA, NAVDEEP Lab Interpretation (test Abnormal code = 56192-9) [facility]-[id number] 17:41:19 Test Item Value Reference Range Interpretation Comments POC-HEMOGLOBIN 12.2 g/dL 13.0-16.8 L : TESTED AT [facility] 6720 (BEAKER) (test code [facility], = 1856) [address]: Curriculum Specialist/Techni bart ID = [id number] for PAIG E, NAVDEEP NGCB-[id number] 17:41:19 Test Item Value Reference Range Interpretation Comments POC-HEMATOCRIT 36 % 40-50 L : Curriculum Specialist/Te chnician ID = (BEAKER) (test code = 657017 for RIA, NAVDEEP 1857) OCG-[id number] 17:41:18 Test Item Value Reference Range Interpretation Comments POC-Potassium (test code 4.6 meq/L 3.6-5.5 : Ivanna BUCHANAN AT [facility] = 1540) 6720 [facility], 770 30: Curriculum Specialist/Techni bart ID = [id number] for RIA, NAVDEEP Lab Interpretation (test Normal code = 51416-2) [facility]-[id number] 17:41:18 Test Item Value Reference Range Interpretation Comments POC-Potassium (test code 4.6 meq/L 3.6-5.5 : T ESTED AT [facility] = 1540) [address] [place] [address], 770 30: Curriculum Specialist/Techni bart ID = [id number] for RIA, NAVDEEP Lab Interpretation (test Normal code = 54153-8) [facility]-Dvjnrzvjm1732-63-36 17:41:18 Test Item Value Reference Range Interpretation Comments POC-Potassium (test code 4.6 meq/L 3.6-5.5 : T ESTED AT [facility] = 1540) [address] [place] [address], [facility] 30: Curriculum Specialist/Techni bart ID = [id number] for RIA, NAVDEEP Lab Interpretation (test Normal code = 63422-6) [facility]-[id number] 17:41:18 Test Item Value Reference Range Interpretation Comments POC-POTASSIUM 4.6 meq/L 3.6-5.5 : TESTED AT [facility] 67 (BEAKER) (test code [facility], = 1540) [address]: Curriculum Specialist/Techni bart ID = [id number] for PAIG E, NAVDEEP ITT-[id number] 17:41:13 Test Item Value Reference Range Interpretation Comments POC-Sodium (test code = 133 meq/L 135-148 L : TE STED AT [facility] 1542) [address] [place] [address], 770 30: Curriculum Specialist/Techni bart ID = [id number] for RIA, NAVDEEP Lab Interpretation (test Abnormal code = 24343-7) [facility]-[id number] 17:41:13 Test Item Value Reference Range Interpretation Comments POC-Sodium (test code = 133 meq/L 135-148 L : TE STED AT [facility] 1542) [address] [place] [address], 770 30: Curriculum Specialist/Techni bart ID = [id number] for RIA, NAVDEEP Lab Interpretation (test Abnormal code = 63853-8) [facility]-[id number] 17:41:13 Test Item Value Reference Range Interpretation Comments POC-Sodium (test code = 133 meq/L 135-148 L : TE STED AT [facility] 1542) [address] [place], 770 30: Curriculum Specialist/Techni bart ID = [id number] for RIA, NAVDEEP Lab Interpretation (test Abnormal code = 31220-9) [facility]-[id number] 17:41:13 Test Item Value Reference Range Interpretation Comments POC-SODIUM (BEAKER) 133 meq/L 135-148 L : TESTED AT [facility] 6720 (test code = 1542) [place], [address]: Curriculum Specialist/Techni bart ID = [id number] for PAIG E, NAVDEEP POC-Blood gases, [id number] 17:41:12 Test Item Value Reference Range Interpretation [...] tomated message] code = 1838) The system [employer] generated this result transmit dante reference range : 80.0 - 90.0 mm Hg. The reference r mayra was not used to interpret this result as normal/abnormal . SO2, Arterial-POC (test 92.0 % 96.0-97.0 L code = 1839) HCO3, Arterilal-POC 17.9 meq/L 21.0-29.0 L (test code = 1840) BE, Arterial-POC (test -7.0 meq/L -2.0-3.0 L : LAM DANTE AT [facility] code = 1841) [address] [place], [address]: Curriculum Specialist/Techni bart ID = [id number] for RIA, NAVDEEP Lab Interpretation Abnormal (test code = 99629-9) [facility], [id number] 17:41:12 Test Item Value Reference Range Interpretation [...] tomated message] code = 1838) The system [employer] generated this result transmit dante reference range : 80.0 - 90.0 mm Hg. The reference r mayra was not used to interpret this result as normal/abnormal . SO2, Arterial-POC (test 92.0 % 96.0-97.0 L code = 1839) HCO3, Arterilal-POC 17.9 meq/L 21.0-29.0 L (test code = 1840) BE, Arterial-POC (test -7.0 meq/L -2.0-3.0 L : LAM DANTE AT [facility] code = 1841) [address] [place], [address]: Curriculum Specialist/Techni bart ID = [id number] for NAVDEEP ROLLINS Lab Interpretation Abnormal (test code = 48260-9) [facility]-Blood gases, fgvjamlb6703-20-86 17:41:12 Test Item Value Reference Range Interpretation [...] tomated message] code = 1838) The system whic h generated this result transmit dante reference range : 80.0 - 90.0 mm Hg. The reference r mayra was not used to interpret this result as normal/abnormal . SO2, Arterial-POC (test 92.0 % 96.0-97.0 L code = 1839) HCO3, Arterilal-POC 17.9 meq/L 21.0-29.0 L (test code = 1840) BE, Arterial-POC (test -7.0 meq/L -2.0-3.0 L : LAM DANTE AT [facility] code = 1841) [address] [place], [address]: Curriculum Specialist/Techni bart ID = [id number] for RIADAVIDNAVDEEP Lab Interpretation Abnormal (test code = 57084-7) [facility] CenterPOCT-BLOOD GASES, [id number] 17:41:12 Test Item Value Reference Range Interpretation [...] -7.0 meq/L -2.0-3.0 L : TESTED AT [facility] 6720 ARTERIAL-POC [facility], (BEAKER) (test code 65336: = 1841) Curriculum Specialist/Techni bart ID = [id number] for PAIG E, NAVDEEP CT, CHEST, WITH [id number] 16:35:00Unlisted Reason for Exam - Click Yes and Enter Reason Below->YesUnlisted Reason for Exam->rapid 40 lb wt loss, concern for malignancy [facility] : 1945 Sex: MFINAL REPORT TECHNIQUE: CT scan of the chest WITH intravenous contrast. Dose modulation, iterative reconstruction, and/or weight-based adjustment of the mA/kV was utilized to reduce the radiation dose to as low as reasonably achievable. INDICATION: Unlisted Reason for Examrapid 40lb wt loss, concern for malignancy. COMPARISON: CT [...] of the left anterior descending coronary artery. Mildcalcification of the left circumflex coronary artery. Mild calcification of the aortic annulus. SOFTTISSUES AND BONES: Unremarkable. UPPER ABDOMEN: There is [...] 3.The layering hyperdense material in the gallbladder couldbe due to sludge or vicarious excretion of [...] MDReport Verified Date/Time: 09/02/2021 16:35:31 Reading Location: [facility] C013Y CT Body Reading Room BASI METABOLIC [id number] 05:54:20 Test Item Value Reference Range Interpretation [...] S NOT APPLICABLE FOR DIALYSIS PATIEN TS. Curriculum Specialist ID - SHANE GCBC W/PLT COUNT & AUTO [id number] 05:27:33 Test Item Value Reference Range Interpretation [...] 0-1 PERCENT (BEAKER) (test code = 2801) Besgntqh8939-22-20 18:20:35 Test Item Value Reference Range Interpretation Comments Ferritin (test code = 36.01 ng/mL 5.00-275.00 2276-4) EMERSON (test code = EMERSON) Curriculum Specialist ID - PIAYA L Lab Interpretation (test Normal code = 81636-1) [facility] CenterFerritin2022-01-14 18:20:35 Test Item Value Reference Range Interpretation Comments Ferritin (test code = 36.01 ng/mL 5.00-275.00 2276-4) EMERSON (test code = EMERSON) Curriculum Specialist ID - PIAYA L Lab Interpretation (test Normal code = 64218-2) [facility] CenterFerritin2022-01-14 18:20:35 Test Item Value Reference Range Interpretation Comments Ferritin (test code = 36.01 ng/mL 5.00-275.00 2276-4) EMERSON (test code = EMERSON) Curriculum Specialist ID - PIAYA L Lab Interpretation (test Normal code = 77639-6) [facility] CenterFERRITIN2022-01-14 18:20:35 Test Item Value Reference Range Interpretation Comments FERRITIN (BEAKER) (test code = 36.01 ng/mL 5.00-275.00 361) Curriculum Specialist ID - KAYLEEN Ardon, TIBC, % sat. (without ferritin)2021-09-01 18:00:19 Test Item Value Reference Range Interpretation Comments Iron (test code = 2498-4) 14.0 ug/dL 40.0-160.0 L TIBC (test code = 2500-7) 355 ug/dL 250-450 Iron % Saturation (test 4 % 20-55 L code = 2502-3) EMERSON (test code = EMERSON) Curriculum Specialist ID - PIAYA L Lab Interpretation (test Abnormal code = 22008-9) [facility] Center[facility], TIBC, % sat. (without ferritin)2021-09-01 18:00:19 Test Item Value Reference Range Interpretation Comments Iron (test code = 2498-4) 14.0 ug/dL 40.0-160.0 L TIBC (test code = 2500-7) 355 ug/dL 250-450 Iron % Saturation (test 4 % 20-55 L code = 2502-3) EMERSON (test code = EMERSON) Curriculum Specialist ID - PIAYA L Lab Interpretation (test Abnormal code = 91023-0) [facility], TIBC, % sat. (without ferritin)2021-09-01 18:00:19 Test Item Value Reference Range Interpretation Comments Iron (test code = 2498-4) 14.0 ug/dL 40.0-160.0 L TIBC (test code = 2500-7) 355 ug/dL 250-450 Iron % Saturation (test 4 % 20-55 L code = 2502-3) EMERSON (test code = EMERSON) Curriculum Specialist ID - KAYLEEN L Lab Interpretation (test Abnormal code = 41634-4) [facility] CenterIRON, TIBC, % SAT. (WITHOUT FERRITIN)2021-09-01 18:00:19 Test Item Value Reference Range Interpretation Comments IRON (BEAKER) (test code = 547) 14.0 ug/dL 40.0-160.0 L TOTAL IRON BINDING CAPACITY 355 ug/dL 250-450 (BEAKER) (test code = 769) IRON % SATURATION (2) (BEAKER) 4 % 20-55 L (test code = 2590) Curriculum Specialist ID - KAYLEEN L2D Echo W/Doppler(CW/PW/Color)2021-09-01 17:31:53Ejection [facility]SLEH [facility] W/Doppler(CW/PW/Color)2021-09-01 17:31:53Ejection FractionSLEH ECHO [facility] W/Doppler(CW/PW/Color) 2021-09-01 17:31:53Ejection FractionSLEH ECHO [facility] HospitalFL, ESOPH, SWALLOW FUNCTION, WITH CINE OR [id number] 12:11:00Reason for exam:->TIMED BARIUIM SWALLOW at 1, 5 and 10 minutes with tablet for dysphagia w/ neg [facility] : 1945 Sex: [...] Number of images: 8 Signed: Arin Espana MDReport Verified Date/Time: 09/01/2021 12:11:08 Reading Location: [address] Ortho Consult Reading Room HEPATIC FUNCTION [id number] 07:23:40 Test Item Value Reference Range Interpretation [...] (test code = 45 U/L 6-55 347) Curriculum Specialist ID - ZACMARIELA [id number] 07:23:39 Test Item Value Reference Range Interpretation Comments MAGNESIUM (BEAKER) (test code = 2.3 mg/dL 1.6-2.6 627) Curriculum Specialist ID - ZACMARIELA [id number] 07:23:39 Test Item Value Reference Range Interpretation Comments PHOSPHORUS (BEAKER) (test code = 3.8 mg/dL 2.3-4.7 604) Curriculum Specialist ID - ZACMARIELA LBASIC METABOLIC [id number] 07:23:38 Test Item Value Reference Range Interpretation [...] S NOT APPLICABLE FOR DIALYSIS PATIEN TS. Curriculum Specialist ID - PIAYA LTSH/Free T4 If Arnwzeqad5770-80-02 06:55:05 Test Item Value Reference Range Interpretation Comments TSH (test code = 1.112 See_Comment [Automated 22777-9) message] The system which generated this result transmit dante reference range : 0.350 - 4.940 uIU/mL. The reference range was not used to interpret this result as normal/abnormal . EMERSON (test code = EMERSON) Curriculum Specialist ID - PIAYA L Lab Interpretation Normal (test code = 23564-6) [facility] CenterTS/Free T4 If [id number] 06:55:05 Test Item Value Reference Range Interpretation Comments TSH (test code = 1.112 See_Comment [Automated 85924-7) message] The system which generated this result transmit dante reference range : 0.350 - 4.940 uIU/mL. The reference range was not used to interpret this result as normal/abnormal . EMERSON (test code = EMERSON) Curriculum Specialist ID - PIAYA L Lab Interpretation Normal (test code = 69472-2) [facility] CenterTS/Free T4 If [id number] 06:55:05 Test Item Value Reference Range Interpretation Comments TSH (test code = 1.112 See_Comment [Automated 30835-7) message] The system which generated this result transmit dante reference range : 0.350 - 4.940 uIU/mL. The reference range was not used to interpret this result as normal/abnormal . EMERSON (test code = EMERSON) Curriculum Specialist ID - KAYLEEN L Lab Interpretation Normal (test code = 96840-9) [facility] CenterTSH/FREE T4 IF [id number] 06:55:05 Test Item Value Reference Range Interpretation Comments THYROID STIMULATING HORMONE 1.112 uIU/mL 0.350-4.940 (BEAKER) (test code = 772) Curriculum Specialist ID - KAYLEEN LPROTHROMBIN TIME/[id number] 06:24:18 Test Item Value Reference Range Interpretation Comments PROTIME (BEAKER) 17.9 seconds 11.9-14.2 H (test code = 759) INR (BEAKER) (test 1.51 See_Comment [Automat ed message] code = 370) The system [employer] generated this result transmitted ref erence range: <=5.90. The reference range was not used to int erpret this result as normal/abnormal . RECOMMENDED COUMADIN/WARFARIN INR THERAPY RANGESSTANDARD DOSE: 2.0 - 3.0 Includes: PROPHYLAXIS for venous thrombosis, systemic embolization; TREATMENT for venous thrombosis and/or pulmonary embolus.HIGH RISK: Target INR is 2.5-3.5 for patients with mechanical heart valves.CBC W/PLT COUNT & AUTO [id number] 06:22:43 Test Item Value Reference Range Interpretation [...] SARS-Co V-2 (test code = target nucleic 66228-5) acids are not detected in thi s [...] revoked sooner. Fact Sheet for Healthcare Providers: https://www.K[employer]/Documents/Xp ert%20Xpress%20SAR S%20CoV-2/Fact%20S heets/302-3802%20S ARS-COV-2%20HEALTH CARE%20PROVIDERS%2 0FACT%20SHEET.pdf Fact Sheet for Healthcare Patients: https://wwwCampuScene/Documents/Xp ert%20Xpress%20SAR S%20CoV-2/Fact%20S heets/302-3801%20S ARS-COV-2%20PATIEN T%20FACT%20SHEET.p df Lab Interpretation Normal (test code = 92924-0) [facility] CenterARS-CoV2/RT-PCR (Symptomatic ONLY)2021-08-31 15:45:18 Test Item Value Reference Interpretation Comments Range SARS-COV2/RT-PCR Negative Negative The SARS-Co V-2 (test code = target nucleic 40624-3) acids are not detected in thi s [...] individual s suspected of COVID-19 by the healthcare provider. EMERSON (test code = This [...] revoked sooner. Fact Sheet for Healthcare Providers: https://www.[employer]/Documents/Xp ert%20Xpress%20SAR S%20CoV-2/Fact%20S heets/302-3802%20S ARS-COV-2%20HEALTH CARE%20PROVIDERS%2 0FACT%20SHEET.pdf Fact Sheet for Healthcare Patients: https://wwwCampuScene/Documents/Xp ert%20Xpress%20SAR S%20CoV-2/Fact%20S heets/302-3801%20S ARS-COV-2%20PATIEN T%20FACT%20SHEET.p df Lab Interpretation Normal (test code = 07047-6) [facility] (Symptomatic ONLY)2021-08-31 15:45:18 Test Item Value Reference Interpretation Comments Range SARS-COV2/RT-PCR Negative Negative The SARS-Co V-2 (test code = target nucleic 71165-5) acids are not detected in thi s [...] revoked sooner. Fact Sheet for Healthcare Providers: https://www.K[employer]/Documents/Xp ert%20Xpress%20SAR S%20CoV-2/Fact%20S heets/302-3802%20S ARS-COV-2%20HEALTH CARE%20PROVIDERS%2 0FACT%20SHEET.pdf Fact Sheet for Healthcare Patients: https://www.KiteBit/Documents/Xp ert%20Xpress%20SAR S%20CoV-2/Fact%20S heets/302-3801%20S ARS-COV-2%20PATIEN T%20FACT%20SHEET.p df Lab Interpretation Normal (test code = 24642-4) [facility]OV2/[facility] ([facility])2021-08-31 15:45:18 Test Item Value Reference Range Interpretation Comments SARS-COV2/RT-PCR Negative Negative The SARS-Co V-2 target (test code = nucleic acids a re not 2451107) detected in thi s specimen. Negative result [...] revoked sooner. Fact Sheet for Healthcare Providers: https://www.Sribu m/Documents/Xpert%20Xpress%20SARS%20CoV-2/Fact%20Sheets/302-3802%12SVHV-CMK-1%20 HEALTHCARE%20PROVIDERS%20FACT%20SHEET.pdf Fact Sheet for Healthcare Patients: https://www.stiQRd/Documents/Xpert%20Xp ress%20SARS%20CoV-2/Fact%20Sheets/302-3801%48MUNT-ZXZ-8%20PATIENT%20FACT%20SHEET .pdfHIGH SENSITIVITY TROPONIN [id number] 13:23:34 Test Item Value Reference Range Interpretation Comments HIGH SENSITIVITY 10 pg/ml See_Comment [Automated message] TROPONIN I (test code = The system which 5285823) generated this result transmitted ref erence range: <=35. Th e reference range was not used to int erpret this result as normal/abnormal . Curriculum Specialist ID - ADMINThe PRINT BINDING WORKER STAT High Sensitivity Troponin-I results should be used in conjunction with other diagnostic information such as ECG, clinical observations and information, and patientsymptoms to aid in the diagnosis of [place]. [id number] 13:16:30 Test Item Value Reference Range Interpretation Comments PARTIAL THROMBOPLASTIN TIME 41.6 seconds 22.5-36.0 H (BEAKER) (test code = 760) BASIC METABOLIC [id number] 13:16:09 Test Item Value Reference Range Interpretation [...] S NOT APPLICABLE FOR DIALYSIS PATIEN TS. Curriculum Specialist ID - ADMINPROTHROMBIN TIME/[id number] 13:15:51 Test Item Value Reference Range Interpretation Comments PROTIME (BEAKER) 21.2 seconds 11.9-14.2 H (test code = 759) INR (BEAKER) (test 1.86 See_Comment [Automat ed message] code = 370) The system [employer] generated this result transmitted ref erence range: <=5.90. The reference range was not used to int erpret this result as normal/abnormal . RECOMMENDED COUMADIN/WARFARIN INR THERAPY RANGESSTANDARD DOSE: 2.0 - 3.0 Includes: PROPHYLAXIS for venous thrombosis, systemic embolization; TREATMENT for venous thrombosis and/or pulmonary embolus.HIGH RISK: Target INR is 2.5-3.5 for patients with mechanical heart valves.LACTIC ACID, [id number] 13:12:46 Test Item Value Reference Range Interpretation Comments LACTATE BLOOD VENOUS (2) (BEAKER) 1.73 mmol/L 0.50-2.20 (test code = 2872) Curriculum Specialist ID - ADMINCBC W/PLT COUNT & AUTO [id number] 12:54:05 Test Item Value Reference Range Interpretation [...] PERCENT (BEAKER) (test code = 2801) [place], [id number] 11:34:00Gastrografin studyReason for exam:->POST-OP PROBLEMpost endocscopy 1 [facility] 1945 Sex: MFINAL REPORT Gastrografin esophagogram Clinical History: POST-OP PROBLEM Discussion: Gastrografin is given to the patient to drink, without difficulties. The esophageal motility, caliber, and gastroesophageal junction are normal. Esophageal mucosa is suboptimally evaluated, but appears unremarkable. There is no contrast extravasation. Fluoro time: 0.5 minutes Number of images obtained: 6 Signed: Arin Espana Verified Date/Time: 07/04/2021 11:34:49 Reading Location: [facility] C013X Ortho Consult Reading Room BASIC METABOLIC [id number] 04:39:36 Test Item Value Reference Range Interpretation [...] S NOT APPLICABLE FOR DIALYSIS PATIEN TS. Curriculum Specialist ID - MARZENA MSARS-COV2/RT-PCR ([facility])2021-07-03 17:50:45 Test Item Value Reference Range Interpretation Comments SARS-COV2/RT-PCR Negative Negative The SARS-Co V-2 target (test code = nucleic acids a re not 6912905) detected in thi s specimen. Negative result [...] revoked sooner. Fact Sheet for Healthcare Providers: https://www.[employer] m/Documents/Xpert%20Xpress%20SARS%20CoV-2/Fact%20Sheets/3023802%61ZHHW-SWM-5%20 HEALTHCARE%20PROVIDERS%20FACT%20SHEET.pdf Fact Sheet for Healthcare Patients: https://www.stiQRd/Documents/Xpert%20Xp ress%20SARS%20CoV-2/Fact%20Sheets/3023801%61YMVO-MNA-1%20PATIENT%20FACT%20SHEET .pdfD-dimer, ebsrlvjugyqh3423-05-55 17:04:25 Test Item Value Reference Range Interpretation Comments D-Dimer, Quant (test <0.27 See_Comment [Autom ated code = 09113-8) message] The system which generated this result [...] range. Lab Interpretation Normal (test code = 04777-0) [facility] CenterD-dimer, drvrmvzbxmpf8251-94-85 17:04:25 Test Item Value Reference Range Interpretation Comments D-Dimer, Quant (test <0.27 See_Comment [Autom ated code = 81760-2) message] The system which generated this result [...] range. Lab Interpretation Normal (test code = 74310-3) [facility] CenterD-[id number] 17:04:25 Test Item Value Reference Range Interpretation [...] of thrombosis is within 95-100% range.BLOOD GAS, [id number] 16:22:57 Test Item Value Reference Range Interpretation [...] code = 1819) 21.0 RAD, CHEST, 2 [id number] 14:40:00Reason for exam:->CHEST PAIN since endoscopy a month agopost endocscopy 1 [facility] 1945 Sex: MFINAL REPORT EXAM: Chest one view COMPARISON: May 15, 2021 CLINICAL HISTORY: Chest pain FINDINGS: Minimal blunting of bilateral posterior costophrenic sulci are noted which may represent small effusions. The cardiac size remains enlarged. There is no evidence of pulmonary consolidation or pneumothorax. The regional osseous structures are unremarkable. Signed: Romeo Ackerman Verified Date/Time: 07/03/2021 14:40:03 [id number] 14:12:25 Test Item Value Reference Range Interpretation Comments Lipase (test code = 3040-3) 22 U/L 8-78 EMERSON (test code = EMERSON) Curriculum Specialist ID - DB Lab Interpretation (test Normal code = 73317-3) [facility] CenterLipase2021-[facility]-15 14:12:25 Test Item Value Reference Range Interpretation Comments Lipase (test code = 3040-3) 22 U/L 8 EMERSON (test code = EMERSON) Curriculum Specialist ID - DB Lab Interpretation (test Normal code = 19311-0) [facility] CenterLIPASE2021-11-15 14:12:25 Test Item Value Reference Range Interpretation Comments LIPASE (BEAKER) (test code = 749) 22 U/L 8 Curriculum Specialist ID - DBCOMPREHENSIVE METABOLIC [id number] 14:12:24 Test Item Value Reference Range Interpretation [...] S NOT APPLICABLE FOR DIALYSIS PATIEN TS. Curriculum Specialist ID - DBHIGH SENSITIVITY TROPONIN [id number] 14:10:43 Test Item Value Reference Range Interpretation Comments HIGH SENSITIVITY 7 pg/ml See_Comment [Automated message] TROPONIN I (test code = The system which 2339293) generated this result transmitted ref erence range: <=35. Th e reference range was not used to interpr et this result as normal/abnormal . Curriculum Specialist ID - RMThe PRINT BINDING WORKER STAT High Sensitivity Troponin-I results should be used in conjunctionwith other diagnostic information such as ECG, clinical observations and information, and patient symptoms to aid in the diagnosis of [place].B-TYPE NATRIURETIC FACTOR (BNP)2021-07-03 14:09:26 Test Item Value Reference Range Interpretation Comments B-TYPE NATRIURETIC PEPTIDE (BEAKER) 515 pg/mL 0-100 H (test code = 700) Curriculum Specialist ID - RMCBC W/PLT COUNT & AUTO [id number] 13:39:07 Test Item Value Reference Range Interpretation [...] (BEAKER) (test code = 2801) HEMOGLOBIN AND [id number] 05:07:16 Test Item Value Reference Range Interpretation Comments HEMOGLOBIN (BEAKER) (test code = 7.9 GM/DL 13.7-17.5 L 410) HEMATOCRIT (BEAKER) (test code = 26.4 % 40.1-51.0 L 411) Curriculum Specialist ID - [id number] AND [id number] 18:44:57 Test Item Value Reference Range Interpretation Comments HEMOGLOBIN (BEAKER) (test code = 8.7 GM/DL 13.7-17.5 L 410) HEMATOCRIT (BEAKER) (test code = 29.7 % 40.1-51.0 L 411) Curriculum Specialist ID - [id number] AND [id number] 11:29:37 Test Item Value Reference Range Interpretation Comments HEMOGLOBIN (BEAKER) (test code = 8.3 GM/DL 13.7-17.5 L 410) HEMATOCRIT (BEAKER) (test code = 28.5 % 40.1-51.0 L 411) Curriculum Specialist ID - [id number] AND [id number] 04:51:37 Test Item Value Reference Range Interpretation Comments HEMOGLOBIN (BEAKER) (test code = 7.9 GM/DL 13.7-17.5 L 410) HEMATOCRIT (BEAKER) (test code = 26.9 % 40.1-51.0 L 411) Curriculum Specialist ID - [id number] AND [id number] 16:42:26 Test Item Value Reference Range Interpretation Comments HEMOGLOBIN (BEAKER) (test code = 8.6 GM/DL 13.7-17.5 L 410) HEMATOCRIT (BEAKER) (test code = 29.4 % 40.1-51.0 L 411) Curriculum Specialist ID - 6000BASIC METABOLIC [id number] 09:04:40 Test Item Value Reference Range Interpretation [...] S NOT APPLICABLE FOR DIALYSIS PATIEN TS. Curriculum Specialist ID - ROSIANGHEMOGLOBIN AND [id number] 08:41:52 Test Item Value Reference Range Interpretation Comments HEMOGLOBIN (BEAKER) (test code = 7.6 GM/DL 13.7-17.5 L 410) HEMATOCRIT (BEAKER) (test code = 26.5 % 40.1-51.0 L 411) Curriculum Specialist ID - [id number]-COV2/RT-PCR ([facility])2021-05-23 19:59:55 Test Item Value Reference Range Interpretation Comments SARS-COV2/RT-PCR Negative Negative The SARS-Co V-2 target (test code = nucleic acids a re not 8220290) detected in thi s specimen. Negative result [...] individuals suspected of CO VID-19 by their [facility] provider. This test has been authorized [...] revoked sooner. Fact Sheet for Healthcare Providers: https://www.Sribu m/Documents/Xpert%20Xpress%20SARS%20CoV-2/Fact%20Sheets/3023802%74VCLZ-SLE-0%20 HEALTHCARE%20PROVIDERS%20FACT%20SHEET.pdf Fact Sheet for Healthcare Patients: https://www.stiQRd/Documents/Xpert%20Xp ress%20SARS%20CoV-2/Fact%20Sheets/3023801%80XEWO-YPR-1%20PATIENT%20FACT%20SHEET .pdfCOMPREHENSIVE METABOLIC [id number] 17:17:21 Test Item Value Reference Range Interpretation [...] S NOT APPLICABLE FOR DIALYSIS PATIEN TS. Curriculum Specialist ID - LUDA [id number] 17:17:21 Test Item Value Reference Range Interpretation Comments LIPASE (BEAKER) (test code = 749) 31 U/L 8-78 Curriculum Specialist ID - LUDA FPT/OIDP7619-72-77 16:55:15 Test Item Value Reference Range Interpretation [...] mechanical heart valves.CBC W/PLT COUNT & AUTO [id number] 16:37:06 Test Item Value Reference Range Interpretation [...] (BEAKER) (test code = 2801) BASIC METABOLIC [id number] 04:38:30 Test Item Value Reference Range Interpretation [...] S NOT APPLICABLE FOR DIALYSIS PATIEN TS. Curriculum Specialist ID - DBCBC W/PLT COUNT & AUTO [id number] 04:21:40 Test Item Value Reference Range Interpretation [...] (BEAKER) (test code = 2801) BASIC METABOLIC [id number] 07:03:04 Test Item Value Reference Range Interpretation [...] S NOT APPLICABLE FOR DIALYSIS PATIEN TS. Curriculum Specialist ID - PIAYA LCBC (HEMOGRAM ONLY)2021-05-17 04:38:47 [...] (BEAKER) (test code = 413) HEMOGLOBIN AND [id number] 20:18:40 Test Item Value Reference Range Interpretation Comments HEMOGLOBIN (BEAKER) (test code = 7.7 GM/DL 13.7-17.5 L 410) HEMATOCRIT (BEAKER) (test code = 25.7 % 40.1-51.0 L 411) Curriculum Specialist ID - [id number] METABOLIC [id number] 06:32:43 Test Item Value Reference Range Interpretation [...] S NOT APPLICABLE FOR DIALYSIS PATIEN TS. Curriculum Specialist ID - MARZENA MCBC W/PLT COUNT & AUTO [id number] 06:09:12 Test Item Value Reference Range Interpretation [...] (BEAKER) (test code = 2801) HEMOGLOBIN AND [id number] 00:13:44 Test Item Value Reference Range Interpretation Comments HEMOGLOBIN (BEAKER) (test code = 8.0 GM/DL 13.7-17.5 L 410) HEMATOCRIT (BEAKER) (test code = 28.1 % 40.1-51.0 L 411) Curriculum Specialist ID - [id number]-COV2/RT-PCR ([facility])2021-05-15 18:07:21 Test Item Value Reference Range Interpretation Comments SARS-COV2/RT-PCR Negative Negative The SARS-Co V-2 target (test code = nucleic acids a re not 3084418) detected in thi s specimen. Negative result s do not preclude SARS-C oV-2 infection and s hould not be used as the yoalnda e basis for patient managem ent decisions. [...] revoked sooner. Fact Sheet for Healthcare Providers: https://www.Sribu m/Documents/Xpert%20Xpress%20SARS%20CoV-2/Fact%20Sheets/302-3802%71VTGN-PIA-0%20 HEALTHCARE%20PROVIDERS%20FACT%20SHEET.pdf Fact Sheet for Healthcare Patients: https://www.stiQRd/Documents/Xpert%20Xp ress%20SARS%20CoV-2/Fact%20Sheets/3023801%23ZKBX-KWB-5%20PATIENT%20FACT%20SHEET .pdfHIGH SENSITIVITY TROPONIN [id number] 15:44:19 Test Item Value Reference Range Interpretation Comments HIGH SENSITIVITY 6 pg/ml See_Comment [Automated message] TROPONIN I (test code = The system which 5013734) generated this result transmitted ref erence range: <=35. Th e reference range was not used to interpr et this result as normal/abnormal . Curriculum Specialist ID - DBThe PRINT BINDING WORKER STAT High Sensitivity Troponin-I results should be used in conjunctionwith other diagnostic information such as ECG, clinical observations and information, and patient symptoms to aid in the diagnosis of [place].[id number] 15:36:53 Test Item Value Reference Range Interpretation Comments MAGNESIUM (BEAKER) (test code = 2.1 mg/dL 1.6-2.6 627) Curriculum Specialist ID - [id number] 15:36:53 Test Item Value Reference Range Interpretation Comments PHOSPHORUS (BEAKER) (test code = 3.3 mg/dL 2.3-4.7 604) Curriculum Specialist ID - DBCOMPREHENSIVE METABOLIC [id number] 15:36:52 Test Item Value Reference Range Interpretation [...] S NOT APPLICABLE FOR DIALYSIS PATIEN TS. Curriculum Specialist ID - DBCBC W/PLT COUNT & AUTO [id number] 15:12:30 Test Item Value Reference Range Interpretation [...] = 2801) RAD, CHEST, 1 VIEW, NON [id number] 13:55:00Reason for exam:->MELENAReason for exam:->GENERAL ILLNESSReason for exam:->GENERALIZED WEAKNESS, NOT ASSOCIATED WITH EXTREMITIESShould this be performed at the bedside?->Yes [facility] : 1945 Sex: MFINAL REPORT INDICATION: MELENAGENERAL ILLNESSGENERALIZED WEAKNESS, NOT ASSOCIATED WITH EXTREMITIES COMPARISON: 05/01/2021 TECHNIQUE: Single frontal view of the chest. FINDINGS: Lungs and pleura: Clear lungs. No effusion.Heart and mediastinum: Normal heart size. Unremarkable mediastinal contours.Osseous structures: No acute abnormality.Other: None. IMPRESSION: No acute intrathoracic abnormality. Signed: Gaby Cordero MDRepwestern [facility]ouri mental [facility] Verified Date/Time: 05/15/2021 13:55:04 Reading Location: [facility] Radiology Reading Room MAGNESIUM 2021-05-10 07:19:33 Test Item Value Reference Range Interpretation Comments MAGNESIUM (BEAKER) (test code = 2.4 mg/dL 1.6-2.6 627) Curriculum Specialist ID - PIAYA LBASIC METABOLIC [id number] 07:19:32 Test Item Value Reference Range Interpretation [...] S NOT APPLICABLE FOR DIALYSIS PATIEN TS. Curriculum Specialist ID - PIAYA LCBC W/PLT COUNT & AUTO [id number] 06:34:22 Test Item Value Reference Range Interpretation [...] (test code = 2801) UREA NITROGEN, RANDOM [id number] 17:46:02 Test Item Value Reference Range Interpretation Comments UREA NITROGEN URINE (BEAKER) (test 404 mg/dL code = 538) Reference Range: No NormalsOperator ID - BSSODIUM, RANDOM [id number] 17:46:01 Test Item Value Reference Range Interpretation Comments SODIUM URINE (BEAKER) (test code = 101 meq/L 243) Reference Range: No NormalsOperator ID - BSCREATININE, RANDOM [id number] 17:46:00 Test Item Value Reference Range Interpretation Comments CREATININE URINE (BEAKER) (test 61.7 mg/dL code = 375) Reference Range: No NormalsOperator ID - BSURINALYSIS WITH MICROSCOPIC IF [id number] 16:41:11 Test Item Value Reference Range Interpretation [...] = 463) SOURCE(BEAKER) (test code = 2795) Curriculum Specialist ID - [auto]BLOOD [id number] 11:01:01 Test Item Value Reference Range Interpretation Comments CULTURE (BEAKER) (test No growth in 5 days code = 1095) BLOOD [id number] 11:01:01 Test Item Value Reference Range Interpretation Comments CULTURE (BEAKER) (test No growth in 5 days code = 1095) The specimen volume collected for this blood culture was below the optimum (10 mL per bottle or 20 mL total). Use of lower volumes may adversely affect recovery and/or detection times of some organisms.[id number] 05:38:27 Test Item Value Reference Range Interpretation Comments MAGNESIUM (BEAKER) (test code = 2.3 mg/dL 1.6-2.6 627) Curriculum Specialist ID - PIAYA LBASIC METABOLIC [id number] 05:38:26 Test Item Value Reference Range Interpretation [...] S NOT APPLICABLE FOR DIALYSIS PATIEN TS. Curriculum Specialist ID - PIAYA LPROTHROMBIN TIME/[id number] 05:23:25 Test Item Value Reference Range Interpretation Comments PROTIME (BEAKER) 16.9 seconds 11.9-14.2 H (test code = 759) INR (BEAKER) (test 1.39 See_Comment [Automat ed message] code = 370) The system [employer] generated this result transmitted ref erence range: <=5.90. The reference range was not used to int erpret this result as normal/abnormal . RECOMMENDED COUMADIN/WARFARIN INR THERAPY RANGESSTANDARD DOSE: 2.0 - 3.0 Includes: PROPHYLAXIS for venous thrombosis, systemic embolization; TREATMENT for venous thrombosis and/or pulmonary embolus.HIGH RISK: Target INR is 2.5-3.5 for patients with mechanical heart valves.CBC W/PLT COUNT & AUTO [id number] 05:22:39 Test Item Value Reference Range Interpretation [...] (BEAKER) (test code = 2801) COMPREHENSIVE METABOLIC [id number] 16:17:38 Test Item Value Reference Range Interpretation [...] U/L 6-55 (test code = 347) EGFR (BRAXTON) (test 46 mL/min/1.73 ESTIMA DANTE GFR IS code = 1092) sq m NOT ACCURATE CREATININE CLEARANCE IN PREDICTING GLOMERULAR FILTRATION RATE . ESTIMATED GFR I S NOT APPLICABLE FOR DIALYSIS PATIEN LANDEN. Curriculum Specialist ID - DBSARS-COV2/RT-PCR ([facility])2021-05-08 12:32:16 Test Item Value Reference Range Interpretation Comments SARS-COV2/RT-PCR (test Negative Not Detected, Negative, code = 3709077) See external report for linked test SARS-COV-2 PERFORMING LAB [facility] SOLO (test code = 8840601) Negative result for this test determines that [...] of the Act.Fact Sheet for Healthcare Prov iders:https://www.Anygma.MEMSIC/sites/default/files/product/documents/Fact_Sheet_HC _Fecwxdojf_Zyyl_TSNS-HtM-2.pdfFact Sheet for Healthcare Patients:https://www.Anygma.MEMSIC/sites/default/files/product/docume nts/Csmu_Drilf_Xywpbjwy_Kkjm_TIDI-BkN-0.pdfPerforming Laboratory:[facility], [place] [address]JHJ (HEMOGRAM ONLY) 2021-05-08 06:41:47 Test Item Value [...] code = 413) MYOCARD IMAGING, MULTI, PHARM, [id number] 13:41:00Unlisted Reason for Exam - Click Yes and Enter Reason Below->No [facility] : 1945 Sex: MFINAL REPORT PROCEDURE: Rest/Stress MYOCARDIAL PERFUSION SPECT with regadenoson\\XA9\\ CPT CODE: 24961 INDICATION: Chest pain PROTOCOL: 10.6 mCi of Tc-99m sestamibi was injected iv at rest, and SPECT (tomographic) images were obtained. Also, 30.7 mCi of Tc-99m sestamibi was injectediv at expected peak pharmacologic effect. SPECT images [...] mmHg at tracer injection. Stress was stopped forpredetermined endpoint. The patient experienced dyspnea and chest [...] (BEAKER) (test code = 413) BASIC METABOLIC [id number] 06:10:10 Test Item Value Reference Range Interpretation [...] S NOT APPLICABLE FOR DIALYSIS PATIEN TS. Curriculum Specialist ID - SHANE GCBC (HEMOGRAM ONLY)2021-05-06 05:35:30 [...] 0-0 H (BEAKER) (test code = 413) [id number] 17:04:33 Test Item Value Reference Range Interpretation Comments PARTIAL THROMBOPLASTIN TIME 75.5 seconds 22.5-36.0 H (BEAKER) (test code = 760) [id number] 08:48:29 Test Item Value Reference Range Interpretation Comments PARTIAL THROMBOPLASTIN TIME 39.1 seconds 22.5-36.0 H (BEAKER) (test code = 760) [id number] 07:02:01 Test Item Value Reference Range Interpretation [...] (BEAKER) (test code = 413) BASIC METABOLIC [id number] 06:36:45 Test Item Value Reference Range Interpretation [...] S NOT APPLICABLE FOR DIALYSIS PATIEN TS. Curriculum Specialist ID - SHANE [id number] 22:11:03 Test Item Value Reference Range Interpretation Comments PARTIAL THROMBOPLASTIN TIME 88.2 seconds 22.5-36.0 H (BEAKER) (test code = 760) PERIPHERAL BLOOD SMEAR - PATHOLOGIST [id number] 18:22:51 Test Item Value Reference Range Interpretation Comments PERIPHERAL SMR Microcytic hypochromic REVIEW (BEAKER) anemia with marked (test code = 2640) anisopoikilocytosis and polychromasia, consistent with history of LEESA. Leukocytosis with predominantly mature granulocytes. No blasts seen. Adequate platelets with unremarkable morphology. [id number]-[id number] Andreina Schmidt, 112 (BEAKER) (test M.D code [...] (BEAKER) (test code 2+ moderate = 966) [id number] 12:13:05 Test Item Value Reference Range Interpretation Comments PARTIAL THROMBOPLASTIN TIME 55.6 seconds 22.5-36.0 H (BEAKER) (test code = 760) TISSUE [id number] 11:53:42Surgical Pathology Report Case: [id number] Authorizing Provider: Yolanda Lyle MD Collected: 05/03/2021 10:38 AM Ordering Location: [address] Received: 05/03/2021 02:25 PM Service Pathologist: Ciro Diamond MD Specimen: Polyp, Colon - Right/Ascending, x3 PART A RIGHT ASCENDING COLON POLYPX3, POLYPECTOMY:TUBULAR ADENOMA Signing Pathologist Direct Phone Line: [phone] signed by Ciro Diamond MD on 05/04/2021 at 11:53 [id number] colonReceived in formalin labeled the patient's name, accession number and "ascending colon polyp" are multipletan soft tissue fragments measuring up to 0.5 cm in greatest dimension which are filtered and submitted in toto in A1.URSULA Martell, HT (ASCP)performedSelma Community Hospital, Departmentof Pathology, [address] [place] [address], AfrskbValley Plaza [facility], Department of Pathology, [address] [place] [address], SlxxgtValley Plaza [facility], Department of Pathology, [address] [place], [place] [address], [id number] 11:13:03 Test Item Value Reference Range Interpretation Comments PARTIAL THROMBOPLASTIN TIME > seconds 22.5-36.0 HH (BEAKER) (test code = 760) URINALYSIS [id number] 10:30:34 Test Item Value Reference Range Interpretation Comments RBC UA (BEAKER) (test code = 519) 3 /HPF WBC UA (BEAKER) (test code = 520) 2 /HPF BACTERIA (BEAKER) (test code = None Seen 517) MUCUS (BEAKER) (test code = 1574) Moderate CRYSTALS, URINE (BEAKER) (test None Seen code = 1521) AMORPHOUS CRYSTALS (BEAKER) (test Occasional code = 1584) Curriculum Specialist ID - techURINALYSIS WITH MICROSCOPIC IF [id number] 10:23:22 Test Item Value Reference Range Interpretation [...] = 463) SOURCE(BEAKER) (test code = 2795) Curriculum Specialist ID - [auto]BASIC METABOLIC [id number] 06:55:55 Test Item Value Reference Range Interpretation [...] S NOT APPLICABLE FOR DIALYSIS PATIEN TS. Curriculum Specialist ID - SHANE GCBC (HEMOGRAM ONLY)2021-05-04 06:35:01 [...] 0-0 (BEAKER) (test code = 413) BLOOD [id number] 18:01:00 Test Item Value Reference Range Interpretation Comments CULTURE (BEAKER) (test No growth in 5 days code = 1095) BLOOD [id number] 18:00:59 Test Item Value Reference Range Interpretation Comments CULTURE (BEAKER) (test No growth in 5 days code = 1095) TISSUE [id number] 17:23:09Surgical Pathology Report Case: [id number] Authorizing Provider: Yolanda Lyle MD Collected: 05/02/2021 03:08 PM Ordering Location: [address] Received: 05/03/2021 09:22 AM Service Pathologist: [...] INVASIVE CARCINOMA. Signing Pathologist Direct Phone Line: [phone] signed byCiro Diamond MD on 05/03/2021 at 5:23 [id number], [id number] iron deficiency anemiaA. Duod enum tissue, rule [...] evaluated Immunohistochemistry technical testing was performed at [facility], Pathology Laboratory where it was developed [...] qualified to perform high complexity clinical laboratory testing.[facility], Department of Pathology, [address] [place] [address], QfzeubValley Plaza [facility], Department of Pathology, [address] [place], [place] [address], RepoejValley Plaza Doctors Hospital, Department of Pathology, [address] [place] [address], OCWBM METABOLIC PANEL 2021-05-03 06:21:43 Test Item Value [...] S NOT APPLICABLE FOR DIALYSIS PATIEN TS. Curriculum Specialist ID - MARZENA MTSH/FREE T4 IF [id number] 05:55:30 Test Item Value Reference Range Interpretation Comments THYROID STIMULATING HORMONE 0.869 uIU/mL 0.350-4.940 (BEAKER) (test code = 772) Curriculum Specialist ID - MARZENA MB-TYPE NATRIURETIC FACTOR (BNP)2021-05-03 05:32:14 Test Item Value Reference Range Interpretation Comments B-TYPE NATRIURETIC PEPTIDE (BEAKER) 452 pg/mL 0-100 H (test code = 700) Curriculum Specialist ID - MARZENA MCBC (HEMOGRAM ONLY)2021-05-03 05:22:14 [...] CONCENTRATION Adequate (CELLAVISION)(BEAKER) (test code = 3438) Curriculum Specialist ID - Luca Perry comments: Slide comments:CBC W/PLT COUNT & AUTO [id number] 11:59:17 Test Item Value Reference Range Interpretation [...] (BEAKER) (test code = 413) BASIC METABOLIC [id number] 09:20:42 Test Item Value Reference Range Interpretation [...] S NOT APPLICABLE FOR DIALYSIS PATIEN TS. Curriculum Specialist ID - KEARA WPT/[id number] 09:05:40 Test Item Value Reference Range Interpretation [...] 2.5-3.5 for patients with mechanical heart valves.SARS-COV2/RT-PCR ([facility]) 2021-05-01 12:34:25 Test Item Value Reference Range Interpretation Comments SARS-COV2/RT-PCR (test Negative Not Detected, Negative, code = 3480446) See external report for linked test SARS-COV-2 PERFORMING LAB [facility] (test code = 8862772) Negative result for this test determines that [...] of the Act.Fact Sheet for Healthcare Prov iders:https://www.Fiberspar/sites/default/files/product/documents/Fact_Sheet_HC _Hlocgfrcc_Efeb_MJVB-QjG-3.pdfFact Sheet for Healthcare Patients:https://www.Fiberspar/sites/default/files/product/docume nts/Didj_Iixib_Skjtgypl_Cfvq_RREM-LbK-6.pdfPerforming Laboratory:[facility], [place] [address]ZZK, CHEST, 1 VIEW, NON [id number] 09:29:00Reason for exam:->shortness of breathShould this be performed at the bedside?->Yes [facility] 1945 Sex: MFINAL REPORT Chest AP portable History provided: Shortness of breath Heart size magnified by projection. Lungs are clear and vascularity normal. Signed: Reji Jefferseport Verified Date/Time: 05/01/2021 09:29:27 Reading Location: [facility] Radiology Reading Room CBC (HEMOGRAM ONLY)2021-05-01 [...] (BEAKER) (test code = 413) BASIC METABOLIC [id number] 06:24:43 Test Item Value Reference Range Interpretation [...] S NOT APPLICABLE FOR DIALYSIS PATIEN TS. Curriculum Specialist ID - PIAYA LBASIC METABOLIC [id number] 15:17:17 Test Item Value Reference Range Interpretation [...] S NOT APPLICABLE FOR DIALYSIS PATIEN TS. Curriculum Specialist ID - DBCBC W/PLT COUNT & AUTO [id number] 14:42:15 Test Item Value Reference Range Interpretation [...] (BEAKER) (test code = 2801) HEMOGLOBIN AND [id number] 14:41:31 Test Item Value Reference Range Interpretation Comments HEMOGLOBIN (BEAKER) (test code = 9.7 GM/DL 13.7-17.5 L 410) HEMATOCRIT (BEAKER) (test code = 33.4 % 40.1-51.0 L 411) Curriculum Specialist ID - [id number], [id number] 02:24:00Unlisted Reason for Exam - Click Yes and Enter Reason Below->NoWill this procedure require oral co ntrast?->NoAU[facility]IN [facility] : 1945 Sex: MFINAL [...] Todd MDReport Verified Date/Time: 04/30/2021 02:24:34 HEMOGLOBIN [id number] 09:35:28 Test Item Value Reference Range Interpretation Comments HEMOGLOBIN A1C (BEAKER) (test code = 6.6 % 4.3-6.1 H 368) HEPATIC FUNCTION [id number] 05:59:52 Test Item Value Reference Range Interpretation [...] (test code = 38 U/L 6-55 347) Curriculum Specialist ID - MARZENA [id number] 05:59:50 Test Item Value Reference Range Interpretation Comments MAGNESIUM (BEAKER) (test code = 2.9 mg/dL 1.6-2.6 H 627) Curriculum Specialist ID - MARZENA MLIPID [id number] 05:59:50 Test Item Value Reference Range Interpretation [...] Borderline 130-159 High 160-189 Very High >=190 Curriculum Specialist ID - MARZENA MBASIC METABOLIC [id number] 05:59:49 Test Item Value Reference Range Interpretation [...] S NOT APPLICABLE FOR DIALYSIS PATIEN TS. Curriculum Specialist ID - MARZENA MB-TYPE NATRIURETIC FACTOR (BNP)2021-04-29 05:49:20 Test Item Value Reference Range Interpretation Comments B-TYPE NATRIURETIC PEPTIDE (BEAKER) 329 pg/mL 0-100 H (test code = 700) Curriculum Specialist ID - DBPROTHROMBIN TIME/[id number] 05:43:23 Test Item Value Reference Range Interpretation Comments PROTIME (BEAKER) 15.3 seconds 11.9-14.2 H (test code = 759) INR (BEAKER) (test 1.23 See_Comment [Automat ed message] code = 370) The system [employer] generated this result transmitted ref erence range: <=5.90. The reference range was not used to int erpret this result as normal/abnormal . RECOMMENDED COUMADIN/WARFARIN INR THERAPY RANGESSTANDARD DOSE: 2.0 - 3.0 Includes: PROPHYLAXIS for venous thrombosis, systemic embolization; TREATMENT for venous thrombosis and/or pulmonary embolus.HIGH RISK: Target INR is 2.5-3.5 for patients with mechanical heart valves.CBC W/PLT COUNT & AUTO [id number] 05:29:39 Test Item Value Reference Range Interpretation [...] (BEAKER) (test code = 2801) BASIC METABOLIC [id number] 20:29:00 Test Item Value Reference Range Interpretation [...] S NOT APPLICABLE FOR DIALYSIS PATIEN TS. Curriculum Specialist ID - [id number] 16:56:00 Test Item Value Reference Range Interpretation Comments FERRITIN (BEAKER) (test code = 13.77 ng/mL 5.00-275.00 361) Curriculum Specialist ID - DBHIGH SENSITIVITY TROPONIN [id number] 16:42:00 Test Item Value Reference Range Interpretation Comments HIGH SENSITIVITY 13 pg/ml See_Comment [Automated message] TROPONIN I (test code = The system which 5710839) generated this result transmitted ref erence range: <=35. Th e reference range was not used to int erpret this result as normal/abnormal . Curriculum Specialist ID - DBThe PRINT BINDING WORKER STAT High Sensitivity Troponin-I results should be used in conjunctionwith other diagnostic information such as ECG, clinical observations and information, and patient symptoms to aid in the diagnosis of [place].HIGH SENSITIVITY TROPONIN [id number] 16:41:00 Test Item Value Reference Range Interpretation Comments HIGH SENSITIVITY 15 pg/ml See_Comment [Automated message] TROPONIN I (test code = The system which [id number]) generated this result transmitted ref erence range: <=35. Th e reference range was not used to int erpret this result as normal/abnormal . Curriculum Specialist ID - DBThe PRINT BINDING WORKER STAT High Sensitivity Troponin-I results should be [...] % 20-55 L (test code = 2590) Curriculum Specialist ID - DBHEMOGLOBIN AND [id number] 15:56:00 Test Item Value Reference Range Interpretation Comments HEMOGLOBIN (BEAKER) (test code = 9.2 GM/DL 13.7-17.5 L 410) HEMATOCRIT (BEAKER) (test code = 30.6 % 40.1-51.0 L 411) Curriculum Specialist ID - [id number] Notes Date/Time Note Provider Source 2021-09-07 19:53:22-00:00 [facility] OPERATIVE/PROCEDURE REPORT BARRYSILVER SWANSONSanto FACILITY: [facility] Billing #: [id number] Room: [place] [address] MR #: [id number] : 1945 DATE OF PROCEDURE: 09/07/2021 SURGEON: [...] thoracotomy. 6. Establishment of cardiopulmonary bypass throu right femoral artery and right femoral vein cannulatio n through peripheral cardiopulmonary bypass. INCENDIARY POWDER MIXER: Dr. Perez. ESTIMATED BLOOD LOSS: 800 mL. [...] dysphagia. [facility] to [facility] due to symptoms [...] cannulated the right femoral artery with a 17-Montserratian arterial cannula. We cannulated the [facility] femoral vein with a 25-Montserratian multistage venous cannula, advanced venous cannula all [...] We then used a pair of CV4 Thousandsticks-Tomas sutu res to close the left atrial [...] closed the left atriotomy with two CV4 Thousandsticks- Tomas sutures in 2 layers in continuous [...] given. Hemostasis was ensured. We placed a 32-Montserratian ch est tube in the right pleural [...] and was transferred to recovery room. SHAWNA/RICHA /[id number]
[2023-04-07 05:55] LABS: Absolute Lymphocytes (CBC) 1.4 K/uL (0.7-4.9); Hematocrit 44.2 % (39.6-49.0); Lymphocytes % 19.2 % (15.3-44.8); MCV 89.6 fL (80-100); MPV 8.5 fL (7.6-11.3); Platelets 184 thou/uL (152-406); RBC Red Blood Cell Count 4.94 M/uL (4.33-5.43)
[2023-04-07] MEDS ORDERED: ACETAMINOPHEN 500 MG TAB ONE (05:56)
[2023-04-07 06:04] LABS: Protime INR 1.51
[2023-04-07 06:20] LABS: Albumin 3.3 g/dL (3.4-5.0); Bilirubin Total 0.5 mg/dL (0.2-1.0); Magnesium 2.3 mg/dL (1.6-2.4); Potassium 3.7 mEq/L (3.5-5.1); Protein, Total 7.2 g/dL (6.4-8.2); Troponin High Sensitivity 27.7 pg/mL (<58.9)
--- NOTE | 2023-04-07 07:04 | EDPHYS ---
Physician Documentation [facility] Name: Oleg Giles Age: 77 yrs Sex: Male : 1945 Arrival Date: 04/07/2023 Time: 04:48 Bed 6 Private MD: ED Physician Valeria Shelton HPI: 04/07 05:18 This 77 yrs old Male presents to ER via Unassigned with complaints of sd2 Congestion, Shortness Of Breath. 05:18 77 yo M presents with CC of congestion and SOB since Saturday after receiving his flu sd2 shot. Also endorses cough productive of phlegm and associated chest wall and abdominal wall pain only when coughing. Has not taken any medications for his symptoms [employer]. Denies any known fever, vomiting or diarrhea. Currently on Warfarin for valve replacement. . Historical: - Allergies: 05:23 No Known Allergies; jw7 - Home Meds: 05:23 aspirin 81 mg Oral cap 1 cap once daily [Active]; atorvastatin 20 mg Oral tab 1 tab jw7 once daily [Active]; losartan 25 mg Oral tab 1 tab once daily [Active]; warfarin 6 mg oral tablet 1 tab once [Active]; docusate sodium 100 mg Oral tablet 1 tabs daily [Active]; ferrous sulfate 325 mg (65 mg iron) Oral tablet 1 tab daily [Active]; Lumigan 0.01 % ophthalmic (eye) drops 1 drop daily [Active]; - PMHx: 05:23 Atrial fibrillation; Cerebrovascular accident; Congestive heart failure; Heart Murmur; jw7 Hypercholesterolemia; Hypertensive disorder; Pneumonia; - PSHx: 05:23 Cardiac Ablation; cataract repair; heart valve replacement: 08/2021; jw7 - Immunization history:: Client reports receiving the 2nd dose of the Covid vaccine, Flu vaccine is up to date. - Social history:: Smoking status: Patient denies any tobacco usage or history of. ROS: 05:18 Constitutional: Negative for fever, chills, and weight loss, Eyes: Negative for injury, sd2 pain, redness, and discharge. 05:18 MS/Extremity: Negative for injury and deformity, Skin: Negative for injury, rash, and discoloration, Neuro: Negative for headache, numbness and tingling. 05:18 Cardiovascular: Positive for chest pain, Negative for edema, palpitations. 05:18 Respiratory: Positive for cough, shortness of breath, Negative for wheezing. 05:18 Abdomen/GI: Positive for abdominal pain, Negative for nausea and vomiting, diarrhea. Exam: 05:18 Constitutional: This is a well developed, well nourished patient who is awake, alert, sd2 and in no acute distress. Head/Face: Normocephalic, atraumatic. Eyes: EOMI, normal conjunctiva bilaterally ENT: Nares patent. No nasal discharge, no septal abnormalities noted. Tympanic membranes are normal and external auditory canals are clear. Oropharynx with no redness, swelling, or masses, exudates, or evidence of obstruction, uvula midline. Mucous membranes moist. Chest/axilla: Normal chest wall appearance and motion. Nontender with no deformity. Cardiovascular: Regular rate and rhythm with a normal S1 and S2. No gallops, murmurs, or rubs. 2+ distal pulses. Respiratory: Lungs have equal breath sounds bilaterally, clear to auscultation and percussion. No rales, rhonchi or wheezes noted. No increased work of breathing, no retractions or nasal flaring. Abdomen/GI: Soft, non-tender, with normal bowel sounds. No guarding or rebound. No evidence of tenderness throughout. Skin: Warm, dry with normal turgor. Normal color with no rashes, no lesions, and no evidence of cellulitis. MS/ Extremity: Pulses equal, no cyanosis. Neurovascular intact. Full, normal range of motion. Ambulatory without difficulty. Psych: Awake, alert, with orientation to person, place and time. Behavior, mood, and affect are within normal limits. 06:37 ECG was reviewed by the Attending Physician. NSR, rate 86, frequent PVCs present, no sd2 STEMI criteria, LVH Vital Signs: 05:18 BP 156 / 63; Pulse 48; Resp 17 S; Temp 99.3; Pulse Ox 96% on R/A; Weight 87.09 kg; jw7 Height 5 ft. 6 in. ; Pain 10/10; 06:00 BP 149 / 53; Pulse 42; Resp 20 S; Pulse Ox 96% on R/A; jw7 07:16 BP 138 / 49; Pulse 77; Resp 15; Pulse Ox 98% ; bp 05:18 Body Mass Index 30.99 (87.09 kg, 167.64 cm) jw7 05:18 Pain Scale: Adult jw7 MDM: 05:01 Patient medically screened. sd2 05:18 Differential diagnosis:. Differential diagnosis: Differential diagnosis includes but is sd2 not limited to: ACS, DVT/PE, pneumothorax, dissection, musculoskeletal, anxiety, anemia, electrolyte abnormality, pneumonia, CHF, COPD among others. Data reviewed: vital signs, nurses notes, EMS record, lab test result(s), EKG, radiologic studies. 06:31 Historians other than the Patient: Daughter/Son: Daughter on phone and son at sd2 provide further history regarding patient's medications. Care significantly affected by the following chronic conditions: Hypertension, Congestive Heart Failure. Counseling: I had a detailed discussion with the patient and/or guardian regarding the historical points, exam findings, and any diagnostic results supporting the discharge/admit diagnosis, lab results, radiology results. 06:38 ED course: Labs reviewed. Trop neg. Elevated BNP compared to last check in 700s earlier sd2 this summer and now more than double that. Pending CXR and COVID test at this time. Sxs may possibly be due to exacerbation of his CHF. . 07:01 ED course: COVID positive. Not a candidate for paxlovid due to blood thinners. Will sd2 place on Decadron, cough medicine, azithromycin and brief course of Lasix as patient is not currently on diuretics. Pt trialed with ambulatory pulse ox of 95% on room air and does not require admission at this time. Patient and son at informed of plan and need for continued supportive care and outpatient follow up. Verbalizes understanding of discharge plan and strict return precautions at this time. . 04/07 05:18 Order name: CBC with Diff; Complete Time: 06:27 04/07 05:18 Order name: CMP; Complete Time: 06:27 04/07 05:18 Order name: Magnesium; Complete Time: 06:27 2 04/07 05:18 Order name: Troponin High Sensitivity; Complete Time: 06:27 04/07 05:18 Order name: BNP; Complete Time: 06:27 04/07 06:30 Interpretation: Abnormal: NT PRO-BNP 1753. sd04/07 05:18 Order name: Procalcitonin; Complete Time: 07:01 04/07 05:18 Order name: PT-INR; Complete Time: 06:13 sd2 04/07 05:18 Order name: Flu; Complete Time: 06:27 sd2 04/07 05:52 Order name: SARS-COV-2 RT PCR; Complete Time: 07:01 EDMS 04/07 05:18 Order name: XRAY Chest (1 view) sd2 04/07 05:18 Order name: EKG - Nurse/Tech; Complete Time: 05:33 sd2 Administered Medications: 05:49 Drug: Acetaminophen PO 1000 mg Route: PO; jw7 07:18 Follow up: Response: No adverse reaction bp Disposition Summary: 04/07/23 07:04 Discharge Ordered Location: Home sd2 Problem: new sd2 Symptoms: have improved sd2 Condition: Stable sd2 Diagnosis - Coronavirus infection, unspecified sd2 - Elevated BNP sd2 - Chest wall pain sd2 Followup: sd2 - With: Private Physician - When: 2 - 3 days - Reason: Recheck today's complaints, Continuance of care, Re-evaluation by your physician Discharge Instructions: - Discharge Summary Sheet sd2 - COVID-19 sd2 - 10 Things You Can Do to Manage Your COVID-19 Symptoms at Home - [facility] (03/03/2021) sd2 Forms: - Medication Reconciliation Form sd2 - Thank You Letter sd2 - Antibiotic Education sd2 - Prescription Opioid Use sd2 - Patient Portal Instructions sd2 - Leadership Thank You Letter sd2 Prescriptions: - dexamethasone 6 mg Oral tablet - take 1 tablet by ORAL route daily for 10 days; 10 tablet; Refills: 0, Product sd2 Selection Permitted - Tessalon Perles 100 mg Oral Capsule - take 1 capsule by ORAL route every 8 hours As needed; 15 capsule; Refills: 0, sd2 Product Selection Permitted - Zithromax Z-Jimbo 250 mg Oral Tablet - take 1 tablet by ORAL route as directed for 5 days Day 1 - take two (2) tablets sd2 one time. Day 2, 3, 4 , 5 take one (1) tablet once daily.; 6 tablet; Refills: 0, Product Selection Permitted Signatures: Dispatcher [facility] Estela Dorantes RN RN jw7 Valeria Shelton MD MD sd2 Taz Vega RN bp Corrections: (The following items were deleted from the chart) 05:51 05:19 SARS-COV-2 Antigen Rapid+I.LAB.BRZ ordered. EDMS EDMS
--- NOTE | 2023-04-07 07:04 | ER ---
Nurse's Notes [facility] Name: Oleg Giles Age: 77 yrs Sex: Male : 1945 Arrival Date: 04/07/2023 Time: 04:48 Bed 6 Private MD: Diagnosis: Coronavirus infection, unspecified;Elevated BNP;Chest wall pain Presentation: 04/07 05:18 Chief complaint: Patient states: received the flu shot on Saturday (04/05/23) and has been jw7 coughing since then, with chest and abdominal pain when coughing. Cough has been productive with phlegm. c/o SOB when laying down. Coronavirus screen: Vaccine status: Patient reports receiving the 2nd dose of the covid vaccine. Ebola Screen: No symptoms or risks identified at this time. Initial Sepsis Screen: Does the patient meet any 2 criteria? No. Patient's initial sepsis screen is negative. Does the patient have a suspected source of infection? No. Patient's initial sepsis screen is negative. Risk Assessment: Do you want to hurt yourself or someone else? Patient reports no desire to harm self or others. Onset of symptoms was April 05, 2023. 05:18 Method Of Arrival: Ambulatory jw 05:18 Acuity: ALEXANDREA 3 jw7 Triage Assessment: 05:23 General: Appears in no apparent distress. comfortable, Behavior is calm, cooperative, jw7 appropriate for age. Pain: Complains of pain in chest and abdomen Pain does not radiate. Pain currently is 10 out of 10 on a pain scale. Quality of pain is described as throbbing, stinging, Pain began 2-3 days ago. Is episodic. EENT: No deficits noted. No signs and/or symptoms were reported regarding the EENT system. Neuro: No deficits noted. Lainez Agitation-Sedation Scale (RASS): 0 - Alert and Calm Level of Consciousness is awake, alert, obeys commands, Oriented to person, place, time, situation. Cardiovascular: Heart tones S1 S2 present Capillary refill < 3 seconds Clubbing of nail beds is absent JVD is absent Patient's skin is warm and dry. Cardiovascular: Heart tones. Respiratory: Reports shortness of breath cough that is Airway is patent Trachea midline Respiratory effort is even, unlabored, Respiratory pattern is regular, symmetrical, Onset: The symptoms/episode began/occurred Saturday04/05/23. GI: No deficits noted. No signs and/or symptoms were reported involving the gastrointestinal system. Abdomen is round non-distended. : No deficits noted. No signs and/or symptoms were reported regarding the genitourinary system. Derm: No deficits noted. No signs and/or symptoms reported regarding the dermatologic system. Skin is intact, is healthy with good turgor, Skin is dry, Skin is pink, warm \T\ dry. Skin temperature is warm. Musculoskeletal: No deficits noted. No signs and/or symptoms reported regarding the musculoskeletal system. Circulation, motion, and sensation intact. Capillary refill < 3 seconds, Range of motion: intact in all extremities. Historical: - Allergies: : No Known Allergies; jw7 - Home Meds: : aspirin 81 mg Oral cap 1 cap once daily [Active]; atorvastatin 20 mg Oral tab 1 tab jw7 once daily [Active]; losartan 25 mg Oral tab 1 tab once daily [Active]; warfarin 6 mg oral tablet 1 tab once [Active]; docusate sodium 100 mg Oral tablet 1 tabs daily [Active]; ferrous sulfate 325 mg (65 mg iron) Oral tablet 1 tab daily [Active]; Lumigan 0.01 % ophthalmic (eye) drops 1 drop daily [Active]; - PMHx: Atrial fibrillation; Cerebrovascular accident; Congestive heart failure; Heart Murmur; jw7 Hypercholesterolemia; Hypertensive disorder; Pneumonia; - PSHx: : Cardiac Ablation; cataract repair; heart valve replacement: 08/2021; jw7 - Immunization history:: Client reports receiving the 2nd dose of the Covid vaccine, Flu vaccine is up to date. - Social history:: Smoking status: Patient denies any tobacco usage or history of. Screenin:32 [facility] ED Fall Risk Assessment (Adult) History of falling in the last 3 months, jw7 including since admission No falls in past 3 months (0 pts) Score/Fall Risk Level 0 - 2 = Low Risk. Abuse screen: Denies threats or abuse. Denies injuries from another. Nutritional screening: No deficits noted. Tuberculosis screening: No symptoms or risk factors identified. Assessment: 06:35 Reassessment: Patient appears in no apparent distress at this time. No changes from jw7 previously documented assessment. Patient and/or family updated on plan of care and expected duration. Pain level reassessed. Patient is alert, oriented x 3, equal unlabored respirations, skin warm/dry/pink. 06:57 General: performed ambulating test, O2 remained >97%. Pt reported shortness of breath jw7 on ambulating. Provider notified. . 07:16 Reassessment: PT DC HOME AMBULATORY WITH FAMILY. bp Vital Signs: 05:18 BP 156 / 63; Pulse 48; Resp 17 S; Temp 99.3; Pulse Ox 96% on R/A; Weight 87.09 kg; jw7 Height 5 ft. 6 in. ; Pain 10/10; 06:00 BP 149 / 53; Pulse 42; Resp 20 S; Pulse Ox 96% on R/A; jw7 07:16 BP 138 / 49; Pulse 77; Resp 15; Pulse Ox 98% ; bp 05:18 Body Mass Index 30.99 (87.09 kg, 167.64 cm) jw7 05:18 Pain Scale: Adult [facility] ED Course: 04:52 Patient arrived in ED. kj1 05:01 Valeria Shelton MD is Attending Physician. sd2 05:18 Estela Dorantes, RN is Primary Nurse. jw7 05:23 Triage completed. jw7 05:23 Arm band placed on. jw7 05:32 Patient has correct armband on for positive identification. Bed in low position. Call [facility] light in reach. Side rails up X 1. 05:33 EKG done, by ED staff, reviewed by Valeria Shelton MD. wm 05:45 Flu Sent. wm 05:45 PT-INR Sent. wm 05:45 Procalcitonin Sent. wm 05:45 BNP Sent. wm 05:45 Troponin High Sensitivity Sent. wm 05:45 Magnesium Sent. wm 05:45 CMP Sent. wm 05:45 CBC with Diff Sent. wm 05:52 XRAY Chest (1 view) In Process Unspecified. EDMS 07:17 No provider procedures requiring assistance completed. IV discontinued, intact, bp bleeding controlled, No redness/swelling at site. Pressure dressing applied. 07:18 Provided Education on: N/A. bp Administered Medications: 05:49 Drug: Acetaminophen PO 1000 mg Route: PO; jw7 07:18 Follow up: Response: No adverse reaction bp Medication: 07:18 VIS not applicable for this client. bp Outcome: 07:04 Discharge ordered by . sd2 07:17 Discharged to home ambulatory, with family. bp 07:17 Condition: stable 07:17 Discharge instructions given to patient, family, Instructed on discharge instructions, follow up and referral plans. medication usage, Demonstrated understanding of instructions, follow-up care, medications, Prescriptions given X 3. 07:19 Patient left the ED. bp Signatures: Dispatcher [employer] Taz Serrano, DI RN Shaye Thorne kj1 [place] Estela Dorantes RN RN jw7 Valeria Shelton MD MD sd2 Corrections: (The following items were deleted from the chart) 05:51 05:45 SARS-COV-2 Antigen Rapid+I.LAB.CHARLES drawn and sent. KOFI
[2023-04-07 07:23] VITALS: TEMP 99.3
[2023-04-07 07:26] VITALS: BP 138/49; O2SAT 98
--- NOTE | 2023-04-08 10:54 | RAD REPORT ---
EXAM DESCRIPTION: RAD - Chest Single View - 04/07/2023 5:50 am CLINICAL HISTORY: Cough;Chest pain COMPARISON: None. TECHNIQUE: XR CHEST 1 VIEW 04/07/2023 5:18 AM CDT FINDINGS: The heart is mildly enlarged. Lungs are clear without consolidation, atelectasis, mass or edema. There is no pleural effusion. There is no pneumothorax. There are no acute osseous findings. IMPRESSION: Clear lungs. Electronically signed by: Mitchel Mandujano MD 04/07/2023 6:44 AM CDT Due to temporary technical issues with the PACS/Fluency reporting system, reports are being signed by the in house radiologist without review as a courtesy to ensure prompt reporting. The interpreting r adiologist is fully responsible for the content of the report.
--- NOTE | 2023-04-08 18:00 | EKG ---
Test Date: 2023-04-07 Test Time: 05:22:16 Raisin Washer: WM MEASUREMENT RESULTS: Intervals: Rate: 86 WV: 174 QRSD: 116 QT: 390 QTc: 466 [place]: P: 34 WV: 174 QRS: -23 T: 127 INTERPRETIVE STATEMENTS: Sinus rhythm with frequent premature ventricular complexes Left ventricular hypertrophy with QRS widening and repolarization abnormality Cannot rule out Septal infarct, age undetermined Abnormal ECG Compared to ECG 02/11/2023 11:16:36 Myocardial infarct finding now present Electronically Signed On 04-08-23 17:57:11 CDT by Neeraj Andrea
== END 2023-04-07 07:19 | disposition home or self-care (01) ==
LOC: ER 04:48
DX: U07.1 COVID-19 (principal); R79.89 Other specified abnormal findings of blood chemistry; I10 Essential (primary) hypertension; I48.91 Unspecified atrial fibrillation; Z79.01 Long term (current) use of anticoagulants; I50.9 Heart failure, unspecified; Z86.73 Personal history of transient ischemic attack (TIA), and cerebral infarction without residual deficits; Z79.82 Long term (current) use of aspirin; Z95.2 Presence of prosthetic heart valve
CPT/HCPCS: 36415; 71045; 80053; 83735; 83880; 84145; 84484; 85025; 85610; 87635; 87804; 93005; 99284

== ENCOUNTER 2023-06-03 05:35 | Emergency (ER) | payer OTHER ==
--- OUTSIDE RECORDS SUMMARY | 2023-06-03 05:49 | XMS REPORT | Continuity of Care Document ---
:1945 Author Organization [facility] t Address [address] [place] [address] [address] [place] [address] Care Team Providers Name Role Phone Melida SHEFFIELD, Willy Duke Primary Care Physician [phone] ALBA BELTRAN NATASHA Attending Clinician Unavailable [id number] Attending Clinician Unavailable RYLAN JARAMILLO Attending Clinician Unavailable ARACELI ATKINSON Attending Clinician Unavailable Doctor Unassigned, [place] Attending Clinician Unavailable Jackelyn Hernandez Attending Clinician Unavailable Elle SEVILLA, Melisa Attending Clinician Mack THERAPIST'S ASSISTANT, Genia Whitaker Attending Clinician GENIA PARK Attending Clinician Unavailable GENIA ARNOLD Attending Clinician Unavailable Amilcar SHEFFIELD, Alexa Jim Attending Clinician [phone] Jonnie SHEFFIELD, Michael Hendrickson Attending Clinician Floyd SHEFFIELD, Edith Gamboa Attending Clinician Jing SHEFFIELD, Jerrell Dave Attending Clinician Alberto SHEFFIELD, Raz Rodriguez Attending Clinician Bartolo Saldivar MD Attending Clinician Juan Carlos SHEFFIELD, Genia Attending Clinician oRcky SHEFFIELD, Darrel Kelly Attending Clinician Ramya SHEFFIELD, Colby Fox Attending Clinician [phone] ELLIS CAMARILLO Attending Clinician Unavailable Maria Teresa SHEFFIELD, Meliza Singh Attending Clinician [phone] Yessica SHEFFIELD, Timmy Miranda Attending Clinician Larry Holbrook CRNA Attending Clinician DARLENE SPARKS Attending Clinician Unavailable Doris SHEFFIELD, Tacos Nicholas Attending Clinician Haseeb SHEFFIELD, Darlene Attending Clinician Yonas SHEFFIELD, Bernarda Estevez Attending Clinician NOA QUINTANILLA Attending Clinician Unavailable Chery SHEFFIELD, Oneil Lesly Attending Clinician James SHEFFIELD, Noa Alexander Attending Clinician [phone] Nichelle SHEFFIELD, Jacobo Love Attending Clinician [phone] Bar Toledo MD Attending Clinician Raegan Rico MD Attending Clinician Dillon Tenorio MD Attending Clinician Joyce Boss CRNA Attending Clinician [phone] Robinson SHEFFIELD, Jimmy Ramirez Attending Clinician [phone] Katy Nath MD Attending Clinician Jaden Chan CRNA Attending Clinician ALBA BELTRAN NATASHA Admitting Clinician Unavailable [id number] Admitting Clinician Unavailable RYLAN JARAMILLO Admitting Clinician Unavailable EDITH BARRIENTOS Admitting Clinician Unavailable BERNARDA BIRD Admitting Clinician Unavailable NOA QUINTANILLA Admitting Clinician Unavailable BAR TOLEDO Admitting Clinician Unavailable SARAH SCHAFFER Admitting Clinician Unavailable Charafeddine MD, Nizar C Admitting Clinician Payers Payer Name Policy Type Policy Number Effective Date Expiration Date Garcia FLORES [id number] [facility] [id number] ESTHER RIVERA PLS [facility] [place] [id number] 2021 00:00:00 NEENA HERNANDEZ [id number] 2020 HMO 00:00:00 Problems Condition Condition Condition Status Onset Resolution Last Treating Co mments Source Name Details Category Date Date Treatment Clinician Date 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 1-18 [facility] athy athy 00:00: Medical 00 [place] Paroxysmal Paroxysmal Disease Recurre [facility] atrial atrial nce 1[facility]18 [facility] fibrillati fibrillati 00:00: Me dical on on [place] Severe Severe Disease Active [facility] mitral mitral 1-18 [facility] regurgitat regurgitat 00:00: Me dical ion ion 00 [place] Dehydratio Dehydratio Disease Active [facility] n 1-13 [facility] 00:00: Medical [place] Nausea and Nausea and Disease Active [facility] vomiting vomiting 1-13 [facility] 00:00: Medical [place] Esophageal Esophageal Disease Active 2020-[address] dysphagia dysphagia 1-15 [facility] 00:00: Medical [place] Weakness Weakness Disease Active [facility] 00:[facility]: Medical [place] s/p s/p Disease Recurre [facility] Robotic Robotic nce 9-10 [facility] MVR/LAAL/M MVR/LAAL/M 00:00: [place] dical AZE by Dr. TOM by 00 Ce david Bui (09/07/21) (09/07/21) GI bleed GI bleed Disease Active [facility] 00:[facility]: Medical 00 Center No known No known Disease Unive rs active active ity of problems problems [facility] Cardiogeni Cardiogeni Disease Recurre [facility] c shock c shock kye [facility] Hypovolemi Hypovolemi Disease Recurre [facility] c shock c shock kye [facility] Acute Acute Disease Recurre [facility] pulmonary pulmonary kye [facility] edema edema Medical Center Hypervolem Hypervolem Disease Active [facility] ia, ia, [facility] unspecifie unspecifie Me dical d d Center hypervolem hypervolem ia type ia type Allergies, Adverse Reactions, Alerts Allergy Allergy Status Severity Reaction(s) Onset Inactive Treating Comm ents Source Name Type Date Date Clinician APIXABAN Allergy Active 2020-[address] [facility] [facility]02 [facility] 00:00: Medical 00 Center ASPIRIN Allergy Active [facility] 9[facility]10 [facility] 00:00: Medical 00 Center Aspirin Propensi Active Unknown - 2018-08 ulcers Univ ers ty to See comments 0-21 ity of adverse 00:00: [place] reaction 00 Medical s to Branch drug ASPIRIN DRUG Active Unknown-Cmnt 2018-08 Uni vers INGREDI 0-21 ity of 00:00: [place] 00 [facility] NO KNOWN Allergy Active [facility] Family History Family Member Diagnosis Comments Start Date Stop Date Source Natural father Heart disease [facility] Natural father Diabetes [facility] Natural sister [facility] Social History Social Habit Start Date Stop Date Quantity Comments Source History of tobacco Current smoker [facility] use [facility] History SDOH [facility] Alcohol Frequency Medical Center History SDOH [facility] Alcohol Std Drinks Medica Center History SDOH [facility] Alcohol Binge Medical [facility] Gender identity Universit y [facility] Sexual orientation Univer [facility] Alcohol intake 2021-10-04 2021-10-04 Ex-drinker [facility] 00:00:00 00:00:00 (finding) Medical [place] Tobacco use and 2021-05-03 2021-05-[address] [facility] exposure 00:00:00 00:00:00 tobacco non-user Medical [place] Tobacco Comment 2021-05-03 2021-05-03 quit [address] [facility] 00:00:00 00:00:00 ago [facility] Alcohol Comment 2021-05-03 2021-05-03 quit [address] [facility] 00:00:00 00:00:00 ago [facility] History of Social 2020-03-23 2020-03-23 Univers ity of function 00:00:00 00:00:00 [facility] Sex Assigned At [address] 00:00:00 00:00:00 Medical Center Smoking Status Start Date Stop Date Source Ex-smoker 2021-05-03 00:00:00 2021-05-03 00:00:[address] [facility] Medications Ordered Filled Start Stop Current Ordering Indication Dosage Frequency Signature Comments Components Source Medication Medication Date Date Medication? Clinician (SIG) Name Name thiamine 2021-2021- No 100mg QD Take 1 [...] QD Take [address] [facility] MG EC -09 21-04 tablet (81 [facility] tablet 00:00: 23:59 mg total) Medic al 00 :00 by mouth Center daily for 30 days. amiodarone 2021-0 2021- No 200mg QD Take [address] (PACERONE) 2- 03-04 tablet [facility]ukes 200 MG 00:00: 23:59 (200 [...] 08 :00 times Center daily. atorvastati 2021-0 2022- No 20mg QD Take [address] [facility] n (LIPITOR) 2- by mouth [place] [facility] 20 MG 15:53: 00:00 daily. Medical tablet 08 :00 [place] albuterol 2021-0 2022- No 2.5mg Take 2.[address] (PROVENTIL) 2- 02-01 mg by [facility]ukes 2.5 mg/0.5 15:53: 00:00 nebulizati Medical mL Nebu 08 :00 on every 6 Center nebulizer (six) solution hours as needed for Wheezing. docusate 2021-0 2022- No 100mg QD Take [address] sodium 2- 02-01 mg by [facility]ukes (COLACE) 15:53: 00:00 mouth Medical 100 MG 08 :00 daily. [place] capsule apixaban 2021-2021- No 5mg Q.5D Take [address] (Eliquis) 5 09-19- by mouth 2 L ukes mg Tab 15:53: 00:00 (two) Medical tablet 08 :00 times Center daily. atorvastati 2021-0 2021- No 20mg QD Take [address] [facility] n (LIPITOR) 09-19- by mouth [place] 20 MG 15:53: 00:00 daily. Medical tablet 08 :00 [place] albuterol 2021-0 2- No 2.5mg Take 2.[address] (PROVENTIL) 2- 02-01 mg by [facility]ukes 2.5 mg/0.5 15:53: 00:00 nebulizati Medical mL Nebu 08 :00 on every 6 Center nebulizer (six) solution hours as needed for Wheezing. docusate 2022-0 2022- No 100mg QD Take [address] sodium 2-01 02-01 mg by [facility]ukes (COLACE) 15:53: 00:00 mouth Medical 100 MG 08 :00 daily. Center capsule apixaban 2021- No 5mg Q.5D Take [address] (Eliquis) 5 09-19 by mouth 2 L ukes mg Tab 15:53: 00:00 (two) Medical tablet 08 :00 times Center daily. furosemide 2021- No 40mg Take [address] [facility] (LASIX) 40 09-1903 tablet (40 [facility] MG tablet 00:00: [...] 5mg QD Take [address] [facility] (COUMADIN, 09-19- tablet (5 [place] JANTOVEN) 5 00:00: [...] QD Take [address] ate 09-19- tablet by Lukes (SENOKOT S) 00:00: 23:59 [...] Center mouth nightly for 30 days. HYDROcodone 2021- No 1{tbl} [...] days. Max Daily Amount: 4 tablets HYDROcodone 2022-0 2022- No 1{tbl} Take [address] -acetaminop 09-19 tablet by [facility] (NORCO 00:00: 23:59 mouth Medic al 5-325) 00 :00 every 6 Center 5-325 mg (six) per tablet hours as needed for Pain for up to 7 days. Max Daily Amount: 4 tablets ondansetron 2020-08- No Weakness 4mg Take [address] [facility] (ZOFRAN-ODT 0-02 05-27 tablet (4 [facility] ) 4 MG 00:00: 23:59 mg total) Medic al disintegrat 00 :00 by mouth Cent er ing tablet every 12 (twelve) hours as needed for Nausea for up to 7 days. ondansetron 2020-08- No Weakness 4mg Take [address] (ZOFRAN-ODT 0-02 05-20 tablet (4 [facility] ) 4 [...] QD Take [address] [facility] (LASIX) 40 05-11- tablet (40 [facility] MG tablet 00:00: [...] QD Take [address] [facility] (LASIX) 40 05-11- tablet (40 [facility] MG tablet 00:00: [...] 40mg Q.5D Take [address] e 05-10- tablet (40 [facility] (PROTONIX) 00:00: 23:59 mg [...] Q.5D Take 1.[address] tartrate 05-10- tablets [facility]ukes (LOPRESSOR) 00:00: 23:59 (75 mg [...] 200mg Q.5D Take [address] (PACERONE) 05-10-21 tablet [facility] 200 MG 00:00: 23:59 (200 mg Medical tablet 00 :00 total) by Center mouth 2 (two) times daily for 90 days. ferrous No 325mg Q.5D Take [address] [...] (two) times daily for 90 days. atorvastati 2018-08 Yes 20mg Take 20 mg Univers n 20 mg 0-23 by mouth ity of tablet 09:53: at [place] [id number] bedtime. Medical Branch clopidogrel 2018-08 Yes 75mg Take 75 mg Univers 75 mg 0-23 by mouth ity of tablet 09:53: daily. [place] 39 Medical Branch valsartan 2018-08 Yes 320mg Take 320 Uni vers 320 mg 0-23 mg by ity of tablet 09:53: mouth [place] 39 daily. Medical Branch atorvastati Yes 20mg Take 20 mg Univers n 20 mg 9-04 by mouth ity of tablet 14:02: at [place] 00 bedtime. Medical Branch clopidogrel Yes 75mg Take 75 mg Univers 75 mg 9-04 by mouth ity of tablet 14:02: daily. [place] 00 Medical Branch valsartan Yes 320mg Take 320 Uni vers 320 mg 9-04 mg by ity of tablet 14:02: mouth [place] 00 daily. Medical Branch atorvastati Yes 20mg Take 20 mg Univers n 20 mg 9-04 by mouth ity of tablet 14:02: at [place] 00 bedtime. Medical Branch clopidogrel Yes 75mg Take 75 mg Univers 75 mg 9-04 by mouth ity of tablet 14:02: daily. Medical Branch valsartan 2019-0 Yes 320mg Take 320 Uni vers 320 mg 9-04 mg by ity of tablet 14:02: mouth 00 daily. Medical Branch atorvastati 2019-0 Yes 20mg Take 20 mg Univers n 20 mg 9-04 by mouth ity of tablet 14:02: at [place] 00 bedtime. Medical Branch clopidogrel 2019-0 Yes 75mg Take 75 mg Univers 75 mg 9-04 by mouth ity of tablet 14:02: daily. Medical Branch valsartan 2019-0 Yes 320mg Take 320 Uni vers 320 mg 9-04 mg by ity of tablet 14:02: mouth 00 daily. Medical Branch ondansetron Yes 4mg 4 mg, Slow Univers (ZOFRAN 9 IV Push, ity of (PF)) 13:19: PRN, [...] 08, Until Discontinu ed, Routine, Pain (scale 4-6), PACU water for 2018-0 Yes PRN, Univers irrigation 04-22 Starting ity o f irrigation 13:02: Sat04/22/19 [place] solution 00 at 0802, Medical Until Branch Discontinu ed, Routine, Intra-op simethicone 2019-0 Yes PRN, Univer s (GAS 04-22 Starting ity of RELIEF) 40 13:01: Sat04/22/19 [place] mg/0.6 mL 00 at 0801, Medica l drops Until [place] Discontinu ed, Routine, Intra-op propofol 2019- No ONCE INTRA Un [place] injection 04-22 PROCEDURE, ity of 13:00: 13:14 Starting [place] 00 :47 Sat04/22/19 Medical at 0800, Branch Until Sat04/22/19 at 0814, Routine, Intra-op lidocaine 2018- No ONCE INTRA U nivers 1% 04-22 PROCEDURE, ity of (XYLOCAINE) 12:59: 13:14 Starting [place] 100 mg/10 00 :54 Sat04/22/19 Medi allison mL (1 %) at 0759, Branch injection Until Sat04/22/19 at 0814, Routine, Intra-op lactated 2018- No CONTINUOUS Un am[place] ringers IV 04-22 [...] at 0630, Routine, DSU Pre-op Immunizations Ordered Filled Immunization Date Status Comments [facility] e Immunization Name Name Pneumococcal 2021-07-[address] [facility] Conjugate (Prevnar) 00:00:[address] [facility] 13-Valent Pneumococcal 2021-07-[address] [facility] Conjugate (Prevnar) 00:00:[address] [facility] 13-Valent Pneumococcal 2021-07-[address] [facility] Conjugate (Prevnar) 00:00:[address] [facility] 13-Valent Pneumococcal 2021-07-[address] [facility] Conjugate (Prevnar) 00:00:00 [facility] 13-Valent Influenza Four-QIV 2021-07-[address] [facility] PF 6+MO IM ([id number]) 00:00:[address] [facility] Influenza Four-QIV 2021-07-[address] [facility] PF 6+MO IM ([id number]) 00:00:00 [facility] Influenza Four-QIV 2021-07-[address] [facility] PF 6+MO IM ([id number]) 00:00:00 [facility] Influenza Four-QIV 2021-07-[address] [facility] PF 6+MO IM ([id number]) 00:00:00 [facility] Pneumococcal 2021-05-[address] [facility] Conjugate (Prevnar) 00:00:[address] [facility] 13-Valent Pneumococcal 2021-05-[address] [facility] Conjugate (Prevnar) 00:00:[address] [facility] 13-[facility]ent Pneumococcal 2021-05-[address] [facility] Conjugate (Prevnar) 00:00:00 [facility] 13-[facility]ent Pneumococcal 2021-05-[address] [facility] Conjugate (Prevnar) 00:00:00 [facility] 13-[facility]ent Pneumococcal Unknown Completed [facility] Conjugate (Prevnar) [facility] 13[facility] Pneumococcal Unknown Completed [facility] Conjugate (Prevnar) [facility] 13-Valent Influenza Four-QIV Unknown Completed [facility] PF 6+MO IM ([id number]) [facility] Vital Signs Vital Name Observation Time Observation [...] 13:42:00 140 mm[Hg] Univer sity of pressure [facility] Diastolic blood 2019-04-22 13:42:00 73 mm[Hg] Unive rsity of pressure [facility] Heart rate 2019-04-22 13:42:00 56 /min [facility] Respiratory rate 2019-04-22 13:42:00 16 /min [facility] Oxygen saturation in 2019-04-22 13:42:00 99 /min [facility] Arterial blood by [facility] Pulse oximetry Branch Body temperature 2019-04-22 13:27:00 36.33 Lalita [facility] Body height 2019-04-17 16:00:00 162.6 cm [facility] [place] [facility] [place] Body weight 2019-04-17 16:00:00 91.173 kg [facility] [place] [facility] [place] BMI 2019-04-17 16:00:00 34.50 kg/m2 Universi ty of [facility] Systolic blood 2019-04-22 13:42:00 140 mm[Hg] Univer sity of pressure [facility] Diastolic blood 2019-04-22 13:42:00 73 mm[Hg] Unive rsity of [facility] Heart rate 2019-04-22 13:42:00 56 /min Universi ty of [facility] Respiratory rate 2019-04-22 13:42:00 16 /min [facility] Oxygen saturation in 2019-04-22 13:42:00 99 /min University Arterial blood by [facility] Pulse oximetry Branch Body temperature 2019-04-22 13:27:00 36.33 Lalita [facility] Body height 2019-04-17 16:00:00 162.6 cm [facility] [place] [facility] [place] Body weight 2019-04-17 16:00:00 91.173 kg Universi ty of [facility] BMI 2019-04-17 16:00:00 34.50 kg/m2 [facility] Systolic blood 2021-10-04 08:58:00 125 mm[Hg] [facility] Diastolic blood 2021-10-04 08:58:00 74 mm[Hg] [facility] S t [facility] Heart rate 2021-10-04 08:58:00 119 /min [facility] Respiratory rate 2021-10-04 08:58:00 16 /min [facility] Body height 2021-10-04 08:58:00 167.6 cm [facility] Body weight 2021-10-04 08:58:00 74.39 kg [facility] BMI 2021-10-04 08:58:00 26.47 kg/m2 [facility] Oxygen saturation in 2021-10-04 08:58:00 100 /min [facility] Arterial blood by Medical nter Pulse oximetry Body temperature 2021-09-19 16:03:00 36.56 Lalita [facility] Procedures Procedure Date / Time Performing Source Performed Clinician REFERRAL- REQUEST/RESPONSE 2023-04-08 Doctor Radames rsity of 05:01:00 Unassigned, No [place] [facility] Name Branch PHOSPHORUS 2021-09-[address] [facility] 03:23:00 [facility] CALCIUM, IONIZED 2021-09-19 Serenio, Henry [facility] 03:23:00 [facility] CBC W/PLT COUNT & AUTO 2021-09-19 Serenio, Henry [facility] DIFFERENTIAL 03:23:00 [facility] PROTHROMBIN TIME/INR 2021-09-19 Serfrankio, Henry [facility] 03:23:00 [facility] MAGNESIUM 2021-09-[address] [facility] 03:23:00 [facility] BASIC METABOLIC PANEL 2021-09-[address] [facility] 03:23:00 [facility] CBC W/PLT COUNT & AUTO 2021-09-19 Serenio, Henry [facility] DIFFERENTIAL 03:23:00 [facility] XR CHEST 1 VIEW PORTABLE / BEDSIDE 2021-09-[address] [facility] 04:55:00 [facility] MAGNESIUM 2021-09-18 Serenio, Henry [facility] 03:25:00 [facility] PHOSPHORUS 2021-09-18 Serenio, Henry [facility] 03:25:00 [facility] CALCIUM, IONIZED 2021-09-18 Serenio, Henry [facility] 03:25:00 [facility] CBC W/PLT COUNT & AUTO 2021-09-18 Serenio, Henry [facility] DIFFERENTIAL 03:25:00 [facility] PROTHROMBIN TIME/INR 2021-09-18 Serenio, Henry [facility] 03:25:00 [facility] BASIC METABOLIC PANEL 2021-09-[address] [facility] 03:25:00 [facility] COMPREHENSIVE METABOLIC PANEL 2021-09-18 Phong Nor[address] [facility] 03:25:[address] [facility] CBC W/PLT COUNT & AUTO 2021-09-18 Serenio, Henry [facility] DIFFERENTIAL 03:25:00 [facility] POCT-GLUCOSE METER 2021-09-17 Arnold, Genia [facility] 17:26:00 [facility] POCT-GLUCOSE METER 2021-09-17 Arnold, Genia [facility] 12:28:00 [facility] POCT-GLUCOSE METER 2021-09-17 Arnold, Genia [facility] 07:58:00 [facility] PHOSPHORUS 2021-09-17 Serenio, Henry [facility] 07:50:00 [facility] MAGNESIUM 2021-09-17 Serenio, Henry [facility] 07:50:00 [facility] CALCIUM, IONIZED 2021-09-17 Serenio, Henry [facility] 05:41:00 [facility] CBC W/PLT COUNT & AUTO 2021-09-17 Serenio, Henry [facility] DIFFERENTIAL 05:41:00 [facility] PROTHROMBIN TIME/INR 2021-09-17 Serenio, Henry [facility] 05:41:00 [facility] CBC W/PLT COUNT & AUTO 2021-09-17 Serenio, Henry [facility] DIFFERENTIAL 05:41:00 [facility] XR CHEST 1 VIEW PORTABLE / BEDSIDE 2021-09-17 Koeckert Blaine hael [facility] 04:47:00 [facility] POCT-GLUCOSE METER 2021-09-16 Arnold, Genia [facility] 21:47:00 [facility] MAGNESIUM 2021-09-16 Serenio, Henry [facility] 17:37:00 [facility] POCT-GLUCOSE METER 2021-09-16 Arnold, Genia [facility] 17:17:00 [facility] POCT-GLUCOSE METER 2021-09-16 Arnold, Genia [facility] 12:41:00 [facility] POCT-GLUCOSE METER 2021-09-16 Arnold, Genia [facility] 07:47:00 [facility] XR CHEST 1 VIEW PORTABLE / BEDSIDE 2021-09-16 Koeckert, Blaine hael [facility] 05:13:00 [facility] PROTHROMBIN TIME/INR 2021-09-16 Serenio, Henry [facility] 04:03:00 [facility] APTT 2021-09-[address] [facility] 04:03:00 [facility] BASIC METABOLIC PANEL 2021-09-[address] [facility] 04:03:00 [facility] CBC W/PLT COUNT & AUTO 2021-09-16 Serenio, Henyr [facility] DIFFERENTIAL 04:03:00 [facility] MAGNESIUM 2021-09-16 Serenio, Henry [facility] 04:03:00 [facility] PHOSPHORUS 2021-09-16 Serenio, Henry [facility] 04:03:00 [facility] CALCIUM, IONIZED 2021-09-16 Serenio, Henry [facility] 04:03:00 [facility] CBC W/PLT COUNT & AUTO 2021-09-16 Serenio, Henry [facility] DIFFERENTIAL 04:03:00 [facility] POCT-GLUCOSE METER 2021-09-15 Juan Carlos Genia [facility] 20:46:00 [facility] POCT-GLUCOSE METER 2021-09-15 Juan Carlos Genia [facility] 17:08:00 [facility] POCT-GLUCOSE METER 2021-09-15 Juan Carlos Genia [facility] 12:04:00 [facility] POCT-GLUCOSE METER 2021-09-15 Juan Carlos Genia [facility] 07:15:00 [facility] XR CHEST 1 VIEW PORTABLE / BEDSIDE 2021-09-[address] [facility] 04:42:00 [facility] CBC W/PLT COUNT & AUTO 2021-09-15 Serenio, Henry [facility] DIFFERENTIAL 03:54:00 [facility] HEPATIC FUNCTION PANEL 2021-09-15 Serenio, Henry [facility] 03:54:00 [facility] PHOSPHORUS 2021-09-15 Serenio, Henry [facility] 03:54:00 [facility] CALCIUM, IONIZED 2021-09-15 Serenio, Henry [facility] 03:54:00 [facility] CBC W/PLT COUNT & AUTO 2021-09-15 Serenio, Henry [facility] DIFFERENTIAL 03:54:00 [facility] MAGNESIUM 2021-09-[address] [facility] 03:54:00 [facility] PROTHROMBIN TIME/INR 2021-09-15 Serkaylah, Henry [facility] 03:54:00 [facility] BASIC METABOLIC PANEL 2021-09-[address] [facility] [facility] 03:54:00 [facility] APTT 2021-09-[address] [facility] 03:54:00 [facility] ECG 12-LEAD 2021-09-15 Zully Lagunaan A [facility] 01:56:37 [facility] ECG 12-LEAD 2021-09-15 Unknown, Hl7 [facility] 01:56:37 [facility] ECG 12-LEAD 2021-09-15 Luz Elena Kameron A [facility] 01:56:09 [facility] ECG 12-LEAD 2021-09-15 Unknown, Hl7 [facility] 01:56:09 [facility] ECG 12-LEAD 2021-09-[address] [facility] 01:55:34 [facility] ECG 12-LEAD 2021-09-15 Unknown, Hl7 [facility] 01:55:34 [facility] PREPARE LEUKO-REDUCED RBC 2021-09-[address] [facility] 23:55:00 [facility] POCT-GLUCOSE METER 2021-09-[address] [facility] 21:03:00 [facility] MAGNESIUM 2021-09-[address] [facility] 20:55:00 [facility] BASIC METABOLIC PANEL 2021-09-[address] [facility] [facility] 09:06:00 [facility] POCT-GLUCOSE METER 2021-09-[address] [facility] 07:23:00 [facility] CBC W/PLT COUNT & AUTO 2021-09-14 Serkaylah, Henry [facility] kes DIFFERENTIAL 04:56:00 [facility] HEPATIC FUNCTION PANEL 2021-09-[address] [facility] 04:56:00 [facility] PHOSPHORUS 2021-09-14 Serenio, Henry [facility] 04:56:00 [facility] CALCIUM, IONIZED 2021-09-14 Serenio, Henry [facility] 04:56:00 [facility] CBC W/PLT COUNT & AUTO 2021-09-14 Serenio, Henry [facility] DIFFERENTIAL 04:56:00 [facility] BASIC METABOLIC PANEL 2021-09-14 Serenio, Henry [facility] 04:56:00 [facility] MAGNESIUM 2021-09-14 Serenio, Henry [facility] 04:56:00 [facility] APTT 2021-09-14 Serenio, Henry [facility] 04:56:00 [facility] PROTHROMBIN TIME/INR 2021-09-14 Serenio, Henry [facility] 04:56:00 [facility] XR CHEST 1 VIEW PORTABLE / BEDSIDE 2021-09-14 Serenio, Jamaicap h [facility] 00:53:00 [facility] POCT-GLUCOSE METER 2021-09-[address] [facility] 22:05:00 [facility] BASIC METABOLIC PANEL 2021-09-13 Serenio, Henry [facility] 17:17:00 [facility] MAGNESIUM 2021-09-13 Serenio, Henry [facility] 17:17:00 [facility] POCT-GLUCOSE METER 2021-09-[address] [facility] 17:16:00 [facility] ECG 12-LEAD 2021-09-13 Unknown, Hl7 [facility] 14:33:16 [facility] ECG 12-LEAD 2021-09-13 Unknown, Hl7 [facility] 13:30:46 [facility] ECG 12-LEAD 2021-09-13 Unknown, Hl7 [facility] 13:29:58 [facility] ECG 12-LEAD 2021-09-[address] [facility] 13:29:37 [facility] ECG 12-LEAD 2021-09-13 Unknown, Hl7 [facility] 13:29:37 [facility] ECG 12-LEAD 2021-09-13 Unknown, Hl7 [facility] 13:29:07 [facility] ECG 12-LEAD 2021-09-13 Unknown, Hl7 [facility] 13:24:42 [facility] ECG 12-LEAD 2021-09-13 Lu[address]amer[address] doyle [facility] 12:51:16 [facility] ECG 12-LEAD 2021-09-13 Unknown, Hl7 [facility] 12:51:16 [facility] ECG 12-LEAD 2021-09-13 Unknown, Hl7 [facility] 12:50:38 [facility] ECG 12-LEAD 2021-09-13 Unknown, Hl7 [facility] 12:46:16 [facility] POCT-GLUCOSE METER 2021-09-[address] [facility] 11:06:00 [facility] 2D ECHO W/ DOPPLER (CW/PW/COLOR) 2021-09-[address] [facility] 10:29:22 [facility] TRANSFUSE LEUKO-REDUCED RED BLOOD 2021-09-[address] [facility] [facility] CELL[facility] 10:15:00 [facility] BASIC METABOLIC PANEL 2021-09-[address] [facility] 10:15:00 [facility] MAGNESIUM 2021-09-[address] [facility] 10:15:00 [facility] TYPE AND SCREEN, AUTOMATED 2021-09-13 Ezequiel [facility]erve [facility] 08:41:00 [facility] POCT-GLUCOSE METER 2021-09-[address] [facility] 07:48:00 [facility] XR CHEST 1 VIEW PORTABLE / BEDSIDE 2021-09-13 Serenio, Ralp h [facility] 02:03:00 [facility] CBC W/PLT COUNT & AUTO 2021-09-13 Serenio, Henry [facility] DIFFERENTIAL 01:50:00 [facility] HEPATIC FUNCTION PANEL 2021-09-13 Serenio, Henry [facility] 01:50:00 [facility] PHOSPHORUS 2021-09-13 Serenio, Henry [facility] 01:50:00 [facility] CALCIUM, IONIZED 2021-09-13 Serenio, Henry [facility] 01:50:00 [facility] CBC W/PLT COUNT & AUTO 2021-09-[address] [facility] DIFFERENTIAL 01:50:00 [facility] BASIC METABOLIC PANEL 2021-09-[address] [facility] 01:50:00 [facility] MAGNESIUM 2021-09-13 Serenio, Henry [facility] 01:50:00 [facility] APTT 2021-09-13 Serfrankio, Henry [facility] 01:50:00 [facility] BLOOD GAS, VENOUS 2021-09-13 Dax, Moy [facility] 01:50:00 [facility] PROTHROMBIN TIME/INR 2021-09-13 Dax, Moy [facility] 01:50:00 [facility] HC VENOUS DOPPLER EXT UNI 2021-09-[address] [facility] 22:09:00 [facility] POCT-GLUCOSE METER 2021-09-12 Sagar-Joshua Raz [facility] 21:56:00 [facility] POCT-GLUCOSE METER 2021-09-12 Sagar-Joshua Raz [facility] 16:06:00 [facility] MAGNESIUM 2021-09-[address] [facility] 11:57:00 [facility] POTASSIUM 2021-09-[address] [facility] 11:57:00 [facility] PHOSPHORUS 2021-09-[address] [facility] 11:57:00 [facility] CALCIUM, IONIZED 2021-09-[address] [facility] 11:57:00 [facility] POCT-GLUCOSE METER 2021-09-12 Sagar-Joshua Raz [facility] 11:18:00 [facility] POCT-GLUCOSE METER 2021-09-12 Keith-Joshua, Raz [facility] 07:50:00 [facility] ECG 12-LEAD 2021-09-12 Unknown, Hl7 [facility] 07:21:58 [facility] BLOOD GAS, ARTERIAL 2021-09-[address] [facility] 03:21:00 [facility] CBC W/PLT COUNT & AUTO 2021-09-12 Serenio, Henry [facility] DIFFERENTIAL 03:20:00 [facility] BASIC METABOLIC PANEL 2021-09-12 Serenio, Henry [facility] 03:20:00 [facility] HEPATIC FUNCTION PANEL 2021-09-12 Serenio, Henry [facility] 03:20:00 [facility] MAGNESIUM 2021-09-12 Serenio, Henry [facility] 03:20:00 [facility] PHOSPHORUS 2021-09-12 Serenio, Henry [facility] 03:20:00 [facility] CALCIUM, IONIZED 2021-09-12 Serenio, Henry [facility] 03:20:00 [facility] CBC W/PLT COUNT & AUTO 2021-09-12 Serenio, Henry [facility] DIFFERENTIAL 03:20:00 [facility] PT/APTT 2021-09-12 Serfrankio, Henry [facility] 03:20:00 [facility] LACTIC ACID, ARTERIAL 2021-09-12 Serenio, Henry [facility] 03:20:00 [facility] XR CHEST 1 VIEW PORTABLE / BEDSIDE 2021-09-12 Marce Vegas h [facility] 01:10:00 [facility] HC VENOUS DOPPLER EXT UNI 2021-09-[address] [facility] 23:31:00 [facility] BASIC METABOLIC PANEL 2021-09-11 Serenio, Henry [facility] 20:26:00 [facility] MAGNESIUM 2021-09-11 Serenio, Henry [facility] 20:26:00 [facility] HEMOGLOBIN AND HEMATOCRIT 2021-09-11 Serenio, Henry [facility] 20:26:00 [facility] POCT-GLUCOSE METER 2021-09-[address] [facility] 20:25:00 [facility] POCT-GLUCOSE METER 2021-09-11 Sagar-Joshua, Raz [facility] 16:07:00 [facility] BASIC METABOLIC PANEL 2021-09-11 Serenio, Henry [facility] 12:13:00 [facility] MAGNESIUM 2021-09-11 Serenio, Henry [facility] 12:13:00 [facility] OXYGEN SATURATION, MEASURED 2021-09-[address] [facility] 12:13:00 [facility] PHOSPHORUS 2021-09-11 Luz Elena Kameron Bettencourt [facility] 12:13:00 [facility] CALCIUM, IONIZED 2021-09-11 Luz Elena Kameron A [facility] 12:13:00 [facility] POCT-GLUCOSE METER 2021-09-11 Jing, Jerrell [facility] 11:00:00 [facility] POCT-GLUCOSE METER 2021-09-11 Jnig, Jerrell [facility] 08:18:00 [facility] OXYGEN SATURATION, MEASURED 2021-09-11 Jing, Jerrell [facility] 06:13:00 [facility] CBC W/PLT COUNT & AUTO 2021-09-11 Serenio, Henry [facility] DIFFERENTIAL 03:45:00 [facility] BASIC METABOLIC PANEL 2021-09-11 Serenio, Henry [facility] 03:45:00 [facility] HEPATIC FUNCTION PANEL 2021-09-11 Serenio, Henry [facility] 03:45:00 [facility] MAGNESIUM 2021-09-11 Serenio, Henry [facility] 03:45:00 [facility] PHOSPHORUS 2021-09-11 Serenio, Henry [facility] 03:45:00 [facility] OXYGEN SATURATION, MEASURED 2021-09-11 Serenio, Henry [facility] 03:45:00 [facility] CALCIUM, IONIZED 2021-09-11 Serenio, Henry [facility] 03:45:00 [facility] CBC W/PLT COUNT & AUTO 2021-09-11 Serenio, Henry [facility] DIFFERENTIAL 03:45:00 [facility] PT/APTT 2021-09-11 Serenio, Henry [facility] 03:45:00 [facility] LACTIC ACID, ARTERIAL 2021-09-11 Serenio, Henry [facility] 03:45:00 [facility] BLOOD GAS, ARTERIAL 2021-09-11 Serenio, Henry [facility] 03:44:00 [facility] XR CHEST 1 VIEW PORTABLE / BEDSIDE 2021-09-11 Serenio, Jamaicap h [facility] 00:33:00 [facility] BASIC METABOLIC PANEL 2021-09-10 Serenio, Henry [facility] 22:08:00 [facility] MAGNESIUM 2021-09-10 Serenio, Henry [facility] 22:08:00 [facility] HEMOGLOBIN AND HEMATOCRIT 2021-09-10 Serenio, Henry [facility] 22:08:00 [facility] POCT-GLUCOSE METER 2021-09-10 Jing, Jerrell [facility] 22:06:00 [facility] POCT-GLUCOSE METER 2021-09-10 Jing, Jerrell [facility] 16:49:00 [facility] OXYGEN SATURATION, MEASURED 2021-09-[address] [facility] 15:32:00 [facility] 2D ECHO W/ DOPPLER (CW/PW/COLOR) 2021-09-[address] [facility] 14:37:25 [facility] BASIC METABOLIC PANEL 2021-09-10 Serenio, Henry [facility] 12:58:00 [facility] MAGNESIUM 2021-09-10 Serenio, Henry [facility] 12:58:00 [facility] CALCIUM, IONIZED 2021-09-[address] [facility] 12:58:00 [facility] POCT-GLUCOSE METER 2021-09-10 Jing, Jerrell [facility] 11:14:00 [facility] ECG 12-LEAD 2021-09-[address] [facility] 10:42:11 [facility] ECG 12-LEAD 2021-09-10 Unknown, Hl7 [facility] 10:42:11 [facility] ECG 12-LEAD 2021-09-10 Unknown, Hl7 [facility] 10:41:54 [facility] POCT-GLUCOSE METER 2021-09-10 Jing, Jerrell [facility] 07:42:00 [facility] BLOOD GAS, ARTERIAL 2021-09-10 Serenio, Henry [facility] 04:31:00 [facility] CBC W/PLT COUNT & AUTO 2021-09-10 Serenio, Henry [facility] DIFFERENTIAL 04:28:00 [facility] BASIC METABOLIC PANEL 2021-09-10 Serenio, Henry [facility] 04:28:00 [facility] HEPATIC FUNCTION PANEL 2021-09-10 Serenio, Henry [facility] 04:28:00 [facility] MAGNESIUM 2021-09-10 Serenio, Henry [facility] 04:28:00 [facility] PHOSPHORUS 2021-09-10 Serenio, Henry [facility] 04:28:00 [facility] CALCIUM, IONIZED 2021-09-10 Serenio, Henry [facility] 04:28:00 [facility] CBC W/PLT COUNT & AUTO 2021-09-10 Serenio, Henry [facility] DIFFERENTIAL 04:28:00 [facility] PT/APTT 2021-09-10 Serenio, Henry [facility] 04:28:00 [facility] LACTIC ACID, ARTERIAL 2021-09-10 Serenio, Henry [facility] 04:28:00 [facility] OXYGEN SATURATION, MEASURED 2021-09-10 Serenio, Henry [facility] 04:27:00 [facility] XR CHEST 1 VIEW PORTABLE / BEDSIDE 2021-09-10 Jamaica Vegasp h [facility] 01:45:00 [facility] PREPARE LEUKO-REDUCED RBC 2021-09-09 Otuonye, Gene [facility] 23:54:00 [facility] POCT-GLUCOSE METER 2021-09-[address] [facility] 22:06:00 [facility] BASIC METABOLIC PANEL 2021-09-09 Serenio, Henry [facility] 19:37:00 [facility] LACTIC ACID, ARTERIAL 2021-09-09 Serenio, Henry [facility] 19:37:00 [facility] MAGNESIUM 2021-09-09 Serenio, Henry [facility] 19:37:00 [facility] PHOSPHORUS 2021-09-09 Serenio, Henry [facility] 19:37:00 [facility] OXYGEN SATURATION, MEASURED 2021-09-09 Serenio, Henry [facility] 19:37:00 [facility] HEMOGLOBIN AND HEMATOCRIT 2021-09-09 Serenio, Henry [facility] 19:37:00 [facility] CALCIUM, IONIZED 2021-09-09 Serenio, Henry [facility] 19:37:00 [facility] OXYGEN SATURATION, MEASURED 2021-09-[address] [facility] 09:44:00 [facility] OXYGEN SATURATION, MEASURED 2021-09-[address] [facility] 05:07:00 [facility] ECG 12-LEAD 2021-09-09 Unknown, Hl7 [facility] 04:50:00 [facility] ECG 12-LEAD 2021-09-[address] [facility] 04:48:23 [facility] ECG 12-LEAD 2021-09-09 Unknown, Hl7 [facility] 04:48:23 [facility] ECG 12-LEAD 2021-09-09 Unknown, Hl7 [facility] 04:47:37 [facility] POCT-GLUCOSE METER 2021-09-[address] [facility] 02:53:00 [facility] COMPREHENSIVE METABOLIC PANEL 2021-09-09 Kameron Laguna [facility] 02:46:00 [facility] MAGNESIUM 2021-09-[address] [facility] 02:46:00 [facility] PHOSPHORUS 2021-09-[address] [facility] 02:46:00 [facility] CBC (HEMOGRAM ONLY) 2021-09-[address] [facility] 02:46:00 [facility] BLOOD GAS, ARTERIAL 2021-09-[address] [facility] 02:46:00 [facility] CALCIUM, IONIZED 2021-09-09 Pendleton, Uselyn [facility] 02:46:00 [facility] XR CHEST 1 VIEW PORTABLE / BEDSIDE 2021-09-[address] [facility] 00:53:00 [facility] PREPARE LEUKO-REDUCED RBC 2021-09-[address] [facility] 23:55:00 [facility] POCT-GLUCOSE METER 2021-09-08 Jing, Jerrell [facility] 21:03:00 [facility] POCT-GLUCOSE METER 2021-09-08 Jing, Jerrell [facility] 18:03:00 [facility] CBC W/PLT COUNT & AUTO 2021-09-[address] [facility] DIFFERENTIAL 15:03:00 [facility] CALCIUM, IONIZED 2021-09-08 Zully Lagunaan A [facility] 15:03:00 [facility] POTASSIUM 2021-09-[address] [facility] 15:03:00 [facility] MAGNESIUM 2021-09-[address] [facility] 15:03:00 [facility] CBC W/PLT COUNT & AUTO 2021-09-[address] [facility] DIFFERENTIAL 15:03:00 [facility] POCT-GLUCOSE METER 2021-09-08 Jing, Jerrell [facility] 12:04:00 [facility] TRANSFUSE LEUKO-REDUCED RED BLOOD 2021-09-[address] [facility] CELLS 11:50:00 [facility] POCT-GLUCOSE METER 2021-09-08 Jing, Jerrell [facility] 10:20:00 [facility] HEMOGLOBIN AND HEMATOCRIT 2021-09-[address] [facility] 10:18:00 [facility] 2D ECHO W/ DOPPLER (CW/PW/COLOR) 2021-09-08 Evonne Ryder a [facility] 09:30:34 [facility] OXYGEN SATURATION, MEASURED 2021-09-[address] [facility] 09:05:00 [facility] POCT-GLUCOSE METER 2021-09-08 Jing, Jerrell [facility] 09:00:00 [facility] LACTIC ACID, ARTERIAL 2021-09-[address] [facility] 08:58:00 [facility] BLOOD GAS, ARTERIAL 2021-09-08 SebastiánonyDiego reyes [facility] 08:58:00 [facility] POCT-GLUCOSE METER 2021-09-08 Jing, Jerrell [facility] 08:09:00 [facility] POCT-GLUCOSE METER 2021-09-08 Jing, Jerrell [facility] 06:03:00 [facility] LACTIC ACID, ARTERIAL 2021-09-08 Pendleton, Uselyn [facility] 05:53:00 [facility] RRL CRITICAL LABS 2021-09-08 Pendleton, Uselyn [facility] (ABG,NA,K,H&H,GLUCOSE) 05:53:00 [facility] enter BLOOD GAS, ARTERIAL 2021-09-08 Pendleton, Uselyn [facility] 05:53:00 [facility] SODIUM NA-STAT LAB 2021-09-08 Pendleton, Uselyn [facility] 05:53:00 [facility] POTASSIUM-STAT LAB 2021-09-08 Pendleton, Uselyn [facility] 05:53:00 [facility] GLUCOSE-STAT LAB 2021-09-08 Pendleton, Uselyn [facility] 05:53:00 [facility] HGB/HCT (H&H) - STAT LAB 2021-09-08 Pendleton, Uselyn [facility] 05:53:00 [facility] POCT-GLUCOSE METER 2021-09-08 Jing, Jerrell [facility] 05:03:00 [facility] POCT-GLUCOSE METER 2021-09-08 Jing, Jerrell [facility] 04:15:00 [facility] OXYGEN SATURATION, MEASURED 2021-09-08 Pendleton, Uselyn [facility] 04:03:00 [facility] BLOOD GAS, ARTERIAL 2021-09-08 Pendleton, Uselyn [facility] 04:02:00 [facility] RRL CRITICAL LABS 2021-09-08 Pendleton, Uselyn [facility] (ABG,NA,K,H&H,GLUCOSE) 04:02:00 [facility] enter SODIUM NA-STAT LAB 2021-09-08 Pendleton, Uselyn [facility] 04:02:00 [facility] POTASSIUM-STAT LAB 2021-09-08 Pendleton, Uselyn [facility] 04:02:00 [facility] GLUCOSE-STAT LAB 2021-09-08 Pendleton, Uselyn [facility] 04:02:00 [facility] HGB/HCT (H&H) - STAT LAB 2021-09-[address] [facility] 04:02:00 [facility] POCT-GLUCOSE METER 2021-09-[address] [facility] 02:59:00 [facility] CBC W/PLT COUNT & AUTO 2021-09-08 Jean-[address]joLake [facility] DIFFERENTIAL 02:31:00 [facility] CBC W/PLT COUNT & AUTO 2021-09-08 Jean-Claudejo, Bashar [facility] DIFFERENTIAL 02:31:00 [facility] COMPREHENSIVE METABOLIC PANEL 2021-09-08 K[address] Lag[address] [facility] 02:31:00 [facility] MAGNESIUM 2021-09-[address] [facility] 02:31:00 [facility] PHOSPHORUS 2021-09-08 Koeckert, Larry [facility] 02:31:00 [facility] CALCIUM, IONIZED 2021-09-08 Pendleton, Uselyn [facility] 02:31:00 [facility] LACTIC ACID, ARTERIAL 2021-09-08 Pendleton, Uselyn [facility] 02:30:00 [facility] RRL CRITICAL LABS 2021-09-08 Pendleton, Uselyn [facility] (ABG,NA,K,H&H,GLUCOSE) 02:30:00 [facility] enter BLOOD GAS, ARTERIAL 2021-09-08 Pendleton, Uselyn [facility] 02:30:00 [facility] SODIUM NA-STAT LAB 2021-09-08 Pendleton, Uselyn [facility] 02:30:00 [facility] POTASSIUM-STAT LAB 2021-09-08 Pendleton, Uselyn [facility] 02:30:00 [facility] GLUCOSE-STAT LAB 2021-09-08 Pendleton, Uselyn [facility] 02:30:00 [facility] HGB/HCT (H&H) - STAT LAB 2021-09-08 Pendleton, Uselyn [facility] 02:30:00 [facility] POCT-GLUCOSE METER 2021-09-08 Jing, Jerrell [facility] 02:11:00 [facility] POCT-GLUCOSE METER 2021-09-08 Jing, Jerrell [facility] 01:00:00 [facility] OXYGEN SATURATION, MEASURED 2021-09-08 Pendleton, Uselyn [facility] 00:55:00 [facility] XR CHEST 1 VIEW PORTABLE / BEDSIDE 2021-09-[address] [facility] 00:43:00 [facility] POCT-GLUCOSE METER 2021-09-07 Jing, Jerrell [facility] 23:59:00 [facility] RRL CRITICAL LABS 2021-09-07 Pendleton, Uselyn [facility] (ABG,NA,K,H&H,GLUCOSE) 23:54:00 [facility] enter BLOOD GAS, ARTERIAL 2021-09-07 Pendleton, Uselyn [facility] 23:54:00 [facility] SODIUM NA-STAT LAB 2021-09-07 Pendleton, Uselyn [facility] 23:54:00 [facility] POTASSIUM-STAT LAB 2021-09-07 Pendleton, Uselyn [facility] 23:54:00 [facility] GLUCOSE-STAT LAB 2021-09-07 Pendleton, Uselyn [facility] 23:54:00 [facility] HGB/HCT (H&H) - STAT LAB 2021-09-07 Pendleton, Uselyn [facility] 23:54:00 [facility] POCT-GLUCOSE METER 2021-09-07 Jing, Jerrell [facility] 23:04:00 [facility] POCT-GLUCOSE METER 2021-09-07 Jing, Jerrell [facility] 22:03:00 [facility] APTT 2021-09-[address] [facility] 21:58:00 [facility] LACTIC ACID, ARTERIAL 2021-09-07 Pendleton, Uselyn [facility] 21:58:00 [facility] RRL CRITICAL LABS 2021-09-07 Pendleton, Uselyn [facility] (ABG,NA,K,H&H,GLUCOSE) 21:57:00 [facility] enter BLOOD GAS, ARTERIAL 2021-09-07 Pendleton, Uselyn [facility] 21:57:00 [facility] SODIUM NA-STAT LAB 2021-09-07 Pendleton, Uselyn [facility] 21:57:00 [facility] POTASSIUM-STAT LAB 2021-09-07 Pendleton, Uselyn [facility] 21:57:00 [facility] GLUCOSE-STAT LAB 2021-09-07 Pendleton, Uselyn [facility] 21:57:00 [facility] HGB/HCT (H&H) - STAT LAB 2021-09-07 Pendleton, Uselyn [facility] 21:57:00 [facility] POCT-GLUCOSE METER 2021-09-07 Jean-Claude Chooq [facility] 20:34:00 [facility] BASIC METABOLIC PANEL 2021-09-07 Pendleton, Uselyn [facility] 20:27:00 [facility] RRL CRITICAL LABS 2021-09-07 Pendleton, Uselyn [facility] (ABG,NA,K,H&H,GLUCOSE) 20:27:00 [facility] enter BLOOD GAS, ARTERIAL 2021-09-07 Pendleton, Uselyn [facility] 20:27:00 [facility] SODIUM NA-STAT LAB 2021-09-07 Pendleton, Uselyn [facility] 20:27:00 [facility] POTASSIUM-STAT LAB 2021-09-07 Pendleton, Uselyn [facility] 20:27:00 [facility] GLUCOSE-STAT LAB 2021-09-07 Pendleton, Uselyn [facility] 20:27:00 [facility] HGB/HCT (H&H) - STAT LAB 2021-09-07 Pendleton, Uselyn [facility] 20:27:00 [facility] OXYGEN SATURATION, MEASURED 2021-09-[address] [facility] 19:02:00 [facility] BLOOD GAS, ARTERIAL 2021-09-07 Wound Treatment Rn, Nandini [facility] 18:48:00 [facility] LACTIC ACID, ARTERIAL 2021-09-[address] [facility] 18:48:00 [facility] CBC (HEMOGRAM ONLY) 2021-09-[address] [facility] 18:48:00 [facility] ECG 12-LEAD 2021-09-07 Kodakandla, [facility] 18:45:09 [facility] ECG 12-LEAD 2021-09-07 Unknown, Hl7 [facility] 18:45:09 [facility] POCT-GLUCOSE METER 2021-09-07 Jing, Jerrell [facility] 18:17:00 [facility] LACTIC ACID, ARTERIAL 2021-09-[address] [facility] 17:07:00 [facility] RRL CRITICAL LABS 2021-09-[address] [facility] (ABG,NA,K,H&H,GLUCOSE) 17:07:00 [facility] enter BLOOD GAS, ARTERIAL 2021-09-[address] [facility] 17:07:00 [facility] SODIUM NA-STAT LAB 2021-09-[address] [facility] 17:07:00 [facility] POTASSIUM-STAT LAB 2021-09-[address] [facility] 17:07:00 [facility] GLUCOSE-STAT LAB 2021-09-07 Nandini Jeffries [facility] [facility] 17:07:00 [facility] HGB/HCT (H&H) - STAT LAB 2021-09-[address] [facility] 17:07:00 [facility] TRANSFUSE LEUKO-REDUCED RED BLOOD 2021-09-[address] [facility] CELLS 16:52:00 [facility] XR CHEST 1 VIEW PORTABLE / BEDSIDE 2021-09-[address] [facility] 15:16:00 [facility] CBC W/PLT COUNT & AUTO 2021-09-[address] [facility] DIFFERENTIAL 15:15:00 [facility] BASIC METABOLIC PANEL 2021-09-[address] [facility] 15:15:00 [facility] MAGNESIUM 2021-09-[address] [facility] 15:15:00 [facility] BLOOD GAS, ARTERIAL 2021-09-[address] [facility] 15:15:00 [facility] CBC W/PLT COUNT & AUTO 2021-09-07 Kodcorinandyou, AUGUSTIN [facility] DIFFERENTIAL 15:15:00 [facility] PROTHROMBIN TIME/INR 2021-09-07 Kodakandla, [facility] 15:15:00 [facility] PT/APTT 2021-09-07 Kodakandla, [facility] 15:15:00 [facility] FIBRINOGEN 2021-09-07 Kodakandla, [facility] 15:15:00 [facility] LACTIC ACID, ARTERIAL 2021-09-07 Kodcorinandyou, [facility]UG[facility]IN [facility] 15:15:00 [facility] PHOSPHORUS 2021-09-07 Kodakandla, [facility] 15:15:00 [facility] OXYGEN SATURATION, MEASURED 2021-09-07 Dixonndyou, [facility] 15:15:00 [facility] PREPARE RBC 2021-09-07 Ramya Colby [facility] 14:47:00 [facility] PREPARE PLASMA 2021-09-[address] [facility] 14:47:00 [facility] ANESTHESIA PERIPHERAL BLOCK 2021-09-07 Darrel Hidalgo [facility] 14:40:56 [facility] RRL CRITICAL LABS 2021-09-[address] [facility] (ABG,NA,K,H&H,GLUCOSE) 13:26:59 [facility] enter CALCIUM, IONIZED 2021-09-07 Darrel Hidalgo [facility] 13:26:59 [facility] BLOOD GAS, ARTERIAL 2021-09-[address] [facility] 13:26:59 [facility] SODIUM NA-STAT LAB 2021-09-07 Darrel Hidalgo [facility] 13:26:59 [facility] POTASSIUM-STAT LAB 2021-09-07 Darrel Hidalgo [facility] 13:26:59 [facility] GLUCOSE-STAT LAB 2021-09-07 Darrel Hidalgo [facility] 13:26:59 [facility] HGB/HCT (H&H) - STAT LAB 2021-09-[address] [facility] 13:26:59 [facility] POCT-ACT 2021-09-[address] [facility] 13:03:00 [facility] PLATELET COUNT 2021-09-[address] [facility] 12:59:25 [facility] CBC W/PLT COUNT & AUTO 2021-09-07 Chris Larry [facility] DIFFERENTIAL 12:59:00 [facility] CBC W/PLT COUNT & AUTO 2021-09-07 Koeckert, Larry [facility] DIFFERENTIAL 12:59:00 [facility] RRL CRITICAL LABS 2021-09-[address] [facility] (ABG,NA,K,H&H,GLUCOSE) 12:42:36 [facility] enter CALCIUM, IONIZED 2021-09-[address] [facility] 12:42:36 [facility] PROTHROMBIN TIME/INR 2021-09-[address] [facility] 12:42:36 [facility] APTT 2021-09-[address] [facility] 12:42:36 [facility] FIBRINOGEN 2021-09-[address] [facility] 12:42:36 [facility] BLOOD GAS, ARTERIAL 2021-09-[address] [facility] 12:42:36 [facility] SODIUM NA-STAT LAB 2021-09-[address] [facility] 12:42:36 [facility] POTASSIUM-STAT LAB 2021-09-[address] [facility] 12:42:36 [facility] GLUCOSE-STAT LAB 2021-09-[address] [facility] 12:42:36 [facility] HGB/HCT (H&H) - STAT LAB 2021-09-[address] [facility] 12:42:36 [facility] POCT-ACT 2021-09-[address] [facility] 12:15:00 [facility] RRL CRITICAL LABS 2021-09-07 Colby Bui [facility] (ABG,NA,K,H&H,GLUCOSE) 12:13:19 [facility] enter BLOOD GAS, ARTERIAL 2021-09-[address] [facility] 12:13:19 [facility] SODIUM NA-STAT LAB 2021-09-[address] [facility] 12:13:19 [facility] POTASSIUM-STAT LAB 2021-09-[address] [facility] 12:13:19 [facility] GLUCOSE-STAT LAB 2021-09-[address] [facility] 12:13:19 [facility] HGB/HCT (H&H) - STAT LAB 2021-09-[address] [facility] 12:13:19 [facility] TISSUE EXAM 2021-09-[address] [facility] 12:07:00 [facility] POCT-ACT 2021-09-[address] [facility] 11:41:00 [facility] LACTIC ACID, ARTERIAL 2021-09-[address] [facility] [facility] 11:39:09 [facility] RRL CRITICAL LABS 2021-09-[address] [facility] (ABG,NA,K,H&H,GLUCOSE) 11:39:04 [facility] enter BLOOD GAS, ARTERIAL 2021-09-[address] [facility] 11:39:04 [facility] SODIUM NA-STAT LAB 2021-09-[address] [facility] 11:39:04 [facility] POTASSIUM-STAT LAB 2021-09-[address] [facility] 11:39:04 [facility] GLUCOSE-STAT LAB 2021-09-[address] [facility] 11:39:04 [facility] HGB/HCT (H&H) - STAT LAB 2021-09-[address] [facility] 11:39:04 [facility] MISCELLANEOUS LAB ORDER 2021-09-[address] [facility] 11:29:37 [facility] RRL CRITICAL LABS 2021-09-[address] [facility] (ABG,NA,K,H&H,GLUCOSE) 11:07:40 [facility] enter BLOOD GAS, ARTERIAL 2021-09-[address] [facility] 11:07:40 [facility] SODIUM NA-STAT LAB 2021-09-[address] [facility] 11:07:40 [facility] POTASSIUM-STAT LAB 2021-09-[address] [facility] 11:07:40 [facility] GLUCOSE-STAT LAB 2021-09-[address] [facility] 11:07:40 [facility] HGB/HCT (H&H) - STAT LAB 2021-09-[address] [facility] 11:07:40 [facility] POCT-ACT 2021-09-[address] [facility] 10:57:00 [facility] LACTIC ACID, ARTERIAL 2021-09-[address] [facility] [facility] 10:44:04 [facility] POCT-ACT 2021-09-[address] [facility] 10:41:00 [facility] RRL CRITICAL LABS 2021-09-[address] [facility] (ABG,NA,K,H&H,GLUCOSE) 10:38:15 [facility] enter BLOOD GAS, ARTERIAL 2021-09-[address] [facility] 10:38:15 [facility] SODIUM NA-STAT LAB 2021-09-[address] [facility] 10:38:15 [facility] POTASSIUM-STAT LAB 2021-09-[address] [facility] 10:38:15 [facility] GLUCOSE-STAT LAB 2021-09-[address] [facility] 10:38:15 [facility] HGB/HCT (H&H) - STAT LAB 2021-09-[address] [facility] 10:38:15 [facility] ANESTHESIA ROXI 2021-09-[address] [facility] 10:08:54 [facility] POCT-ACT 2021-09-[address] [facility] 10:07:00 [facility] POCT-ACT 2021-09-[address] [facility] 09:32:00 [facility] RRL CRITICAL LABS 2021-09-[address] [facility] (ABG,NA,K,H&H,GLUCOSE) 08:35:02 [facility] enter CALCIUM, IONIZED 2021-09-[address] [facility] 08:35:02 [facility] BLOOD GAS, ARTERIAL 2021-09-[address] [facility] 08:35:02 [facility] SODIUM NA-STAT LAB 2021-09-[address] [facility] 08:35:02 [facility] POTASSIUM-STAT LAB 2021-09-[address] [facility] 08:35:02 [facility] GLUCOSE-STAT LAB 2021-09-[address] [facility] 08:35:02 [facility] HGB/HCT (H&H) - STAT LAB 2021-09-[address] [facility] 08:35:02 [facility] ROBOTIC MITRAL VALVE REPLACEMENT 2021-09-[address] [facility] 07:45:00 [facility] ROBOTIC THORACOSCOPY 2021-09-[address] [facility] (VATS),LIGATION ATRIAL APPENDAGE 07:45:00 [facility] MAZE PROCEDURE, MODIFIED 2021-09-[address] [facility] 07:45:00 [facility] ECHOCARDIOGRAM, 3D, 2021-09-[address] [facility] TRANSESOPHAGEAL 07:45:00 [facility] ECG 12-LEAD 2021-09-[address] [facility] 04:35:18 [facility] ECG 12-LEAD 2021-09-07 Unknown, Hl7 [facility] 04:35:18 [facility] TYPE AND SCREEN, AUTOMATED 2021-09-07 [facility]ieves [facility] 02:59:00 [facility] CBC W/PLT COUNT & AUTO 2021-09-[address] [facility] DIFFERENTIAL 02:59:00 [facility] HEMOGLOBIN A1C 2021-09-07 Nieves, Herve [facility] 02:59:00 [facility] LIPID PANEL 2021-09-07 Nieves, Herve [facility] 02:59:00 [facility] APTT 2021-09-07 Nieves, Herve [facility] 02:59:00 [facility] TSH 2021-09-07 Nieves, Herve [facility] 02:59:00 [facility] CBC W/PLT COUNT & AUTO 2021-09-[address] [place] [address] [facility] DIFFERENTIAL 02:59:00 [facility] PROTHROMBIN TIME/INR 2021-09-[address] [facility] 02:59:00 [facility] BLOOD GAS, VENOUS 2021-09-[address] [facility] 02:59:00 [facility] COMPREHENSIVE METABOLIC PANEL 2021-09-07 [address] [facility] 02:59:00 [facility] MAGNESIUM 2021-09-[address] [facility] 02:59:00 [facility] PHOSPHORUS 2021-09-[address] [facility] 02:59:00 [facility] POCT-GLUCOSE METER 2021-09-06 Jing, Jerrell [facility] 21:09:00 [facility] APTT 2021-09-[address] [facility] 17:52:00 [facility] PROTHROMBIN TIME/INR 2021-09-[address] [facility] 17:52:00 [facility] POCT-GLUCOSE METER 2021-09-06 Jing, Jerrell [facility] 17:14:00 [facility] POCT-GLUCOSE METER 2021-09-06 Jing, Jerrell [facility] 11:09:00 [facility] APTT 2021-09-[address] [facility] 11:05:00 [facility] POCT-GLUCOSE METER 2021-09-06 Jing, Jerrell [facility] 08:04:00 [facility] ECG 12-LEAD 2021-09-06 Luz Elena, Kameron A [facility] 07:15:01 [facility] ECG 12-LEAD 2021-09-06 Unknown, Hl7 [facility] 07:15:01 [facility] ECG 12-LEAD 2021-09-06 Unknown, Hl7 [facility] 07:12:35 [facility] CBC W/PLT COUNT & AUTO 2021-09-06 Farjo, Bashar [facility]FFER[facility] 05:03:00 [facility] BLOOD GAS, VENOUS 2021-09-06 Zully Lgaunaan A [facility] 05:03:00 [facility] BASIC METABOLIC PANEL 2021-09-06 Zully Lagunaan A [facility] 05:03:00 [facility] MAGNESIUM 2021-09-06 Zully Lagunaan A [facility] 05:03:00 [facility] CBC W/PLT COUNT & AUTO 2021-09-06 Jean-Claudejo, Bashar [facility] DIFFERENTIAL 05:03:00 [facility] APTT 2021-09-06 Zully Lagunaan A [facility] 05:03:00 [facility] APTT 2021-09-05 Jing, Jerrell [facility] 22:08:00 [facility] POCT-GLUCOSE METER 2021-09-05 Jing, Jerrell [facility] 21:45:00 [facility] ECG 12-LEAD 2021-09-05 Zully Lagunaan A [facility] 20:35:24 [facility] ECG 12-LEAD 2021-09-05 Unknown, Hl7 [facility] 20:35:24 [facility] POCT-GLUCOSE METER 2021-09-05 Jing, Jerrell [facility] 17:04:00 [facility] APTT 2021-09-05 Kameron Laguna A [facility] 16:36:00 [facility] B-TYPE NATRIURETIC FACTOR (BNP) 2021-09-[address] [facility] 16:36:00 [facility] BASIC METABOLIC PANEL 2021-09-05 Zully Lagunaan A [facility] 16:36:00 [facility] MAGNESIUM 2021-09-05 Zully Lagunaan A [facility] 16:36:00 [facility] POCT-GLUCOSE METER 2021-09-05 Jing, Jerrell [facility] 11:28:00 [facility] POCT-GLUCOSE METER 2021-09-05 Jing, Jerrell [facility] 08:21:00 [facility] APTT 2021-09-05 Luz Elena Kameron A [facility] 08:16:00 [facility] APTT 2021-09-05 Luz Elena Kameron A [facility] 04:28:00 [facility] BASIC METABOLIC PANEL 2021-09-05 Zully Lagunaan A [facility] 04:28:00 [facility] MAGNESIUM 2021-09-05 Zully Lagunaan A [facility] 04:28:00 [facility] BLOOD GAS, VENOUS 2021-09-05 Kameron Laguna A [facility] 04:28:00 [facility] VANCOMYCIN LEVEL, TROUGH 2021-09-[address] [facility] 04:28:00 [facility] XR CHEST 1 VIEW PORTABLE / BEDSIDE 2021-09-05 [address] [facility] 00:32:00 [facility] POCT-GLUCOSE METER 2021-09-04 Jing, Jerrell [facility] 23:57:00 [facility] APTT 2021-09-04 Zully Lagunaan A [facility] 22:30:00 [facility] POCT-GLUCOSE METER 2021-09-04 Jing, Jerrell [facility] 22:29:00 [facility] CAROTID DOPPLER BILATERAL 2021-09-[address] [facility] 20:37:00 [facility] POCT-GLUCOSE METER 2021-09-04 Jing, Jerrell [facility] 18:02:00 [facility] BASIC METABOLIC PANEL 2021-09-04 Kameron Laguna A [facility] 18:02:00 [facility] MAGNESIUM 2021-09-04 Luz Elena Kameron A [facility] 18:02:00 [facility] BLOOD GAS, VENOUS 2021-09-04 Luz Elena Kameron A [facility] 18:02:00 [facility] CTA CHEST 2021-09-[address] [facility] 15:55:00 [facility] CTA ABDOMEN & PELVIS 2021-09-[address] [facility] 15:55:00 [facility] APTT 2021-09-04 Luz Elena, Kameron A [facility] 15:16:00 [facility] APTT 2021-09-04 Luz Elena, Kameron A [facility] 14:00:00 [facility] APTT 2021-09-04 Luz Elena, Kameron A [facility] 12:58:00 [facility] POCT-GLUCOSE METER 2021-09-04 Jing, Jerrell [facility] 12:21:00 [facility] TRANSESOPHAGEAL ECHO 2021-09-04 Luz Elena, Kameron A [facility] 10:56:06 [facility] POCT-GLUCOSE METER 2021-09-04 Jing, Jerrell [facility] 09:29:00 [facility] CBC W/PLT COUNT & AUTO 2021-09-04 Ali, Hiba Cooper [facility] DI[facility] 04:47:00 [facility] CBC W/PLT COUNT & AUTO 2021-09-04 Ali, Hiba Cooper [facility] DIFFER[facility] 04:47:00 [facility] BASIC METABOLIC PANEL 2021-09-04 Z[address] [facility] 04:47:00 [facility] MAGNESIUM 2021-09-04 Z[address]an [address] [facility] 04:47:00 [facility] APTT 2021-09-04 Zully Lagunaan A [facility] 04:47:00 [facility] BLOOD GAS, VENOUS 2021-09-04 Luz Elena, Kameron A [facility] 04:36:00 [facility] XR CHEST 1 VIEW PORTABLE / BEDSIDE 2021-09-[address] [facility] 00:40:00 [facility] POCT-GLUCOSE METER 2021-09-03 Jing, Jerrell [facility] 22:04:00 [facility] POCT-GLUCOSE METER 2021-09-03 Jing, Jerrell [facility] 16:27:00 [facility] PROCALCITONIN 2021-09-03 Zully [address]an A [facility] 16:04:00 [facility] BASIC METABOLIC PANEL 2021-09-03 Zully Lag[address] A [facility] 16:04:00 [facility] MAGNESIUM 2021-09-03 Zully Lagunaan A [facility] 16:04:00 [facility] BLOOD GAS, VENOUS 2021-09-03 Luz Elena Kameron Bettencourt [facility] 16:04:00 [facility] ECG 12-LEAD 2021-09-[address] [facility] 15:00:16 [facility] 12-LEAD 2021-09-03 Unknown, Hl7 [facility] 15:00:16 [facility] ECG 12-LEAD 2021-09-03 Unknown, Hl7 [facility] 14:59:48 [facility] 2D ECHO W/ DOPPLER (CW/PW/COLOR) 2021-09-[address] [facility] 09:48:42 [facility] CONT WAVE PULSED DOPPLER 2021-09-03 Luz Elena Kameron Bettencourt [facility] 09:44:53 [facility] COLOR-FLOW MAPPING 2021-09-03 Luz Elena Kameron Bettencourt [facility] 09:44:52 [facility] ECG 12-LEAD 2021-09-03 Unknown, Hl7 [facility] 07:30:39 [facility] ECG 12-LEAD 2021-09-03 Unknown, Hl7 [facility] 07:30:39 [facility] ECG 12-LEAD 2021-09-03 Unknown, Hl7 [facility] 07:30:02 [facility] ECG 12-LEAD 2021-09-03 Unknown, Hl7 [facility] 07:30:02 [facility] BLOOD CULTURE 2021-09-[address] [facility] 06:56:00 [facility] CBC W/PLT COUNT & AUTO 2021-09-03 Ali, Hiba Cooper [facility] DI[facility] 04:31:00 [facility] CBC W/PLT COUNT & AUTO 2021-09-03 Ali, Hiba Cooper [facility] DIFFERENTIAL 04:31:00 [facility] BASIC METABOLIC PANEL 2021-09-03 Ali, Hiba Cooper [facility] 04:31:00 [facility] B-TYPE NATRIURETIC FACTOR (BNP) 2021-09-03 Brennon, [facility] 04:31:00 [facility] BLOOD GAS, VENOUS 2021-09-03 [address] [facility] 04:31:00 [facility] HIGH SENSITIVITY TROPONIN I 2021-09-03 Adhi, Otis [facility] 04:31:00 [facility] LACTIC ACID, VENOUS 2021-09-[address] [facility] 04:31:00 [facility] MAGNESIUM 2021-09-[address] [facility] 04:31:00 [facility] XR CHEST 1 VIEW PORTABLE / BEDSIDE 2021-09-03 Lala Thakur unmveronica [facility] 02:05:00 [facility] HIGH SENSITIVITY TROPONIN I 2021-09-02 Adhi, Otis [facility] 22:33:00 [facility] LACTIC ACID, VENOUS 2021-09-[address] [facility] 22:33:00 [facility] LACTIC ACID, VENOUS 2021-09-02 Nadimpalli, [facility] 19:28:00 [facility] BASIC METABOLIC PANEL 2021-09-02 Nadimpalli, [facility] 19:28:00 [facility] B-TYPE NATRIURETIC FACTOR (BNP) 2021-09-02 Ali, Hiba Cooper [facility] 17:17:00 [facility] PROCALCITONIN 2021-09-02 Ali, Hiba Cooper [facility] 17:17:00 [facility] HIGH SENSITIVITY TROPONIN I 2021-09-02 Ali, Hiba Cooper [facility] 17:17:00 [facility] LACTIC ACID, ARTERIAL 2021-09-02 Ali, Hiba Cooper [facility] 17:17:00 [facility] POCT-BLOOD GASES, ARTERIAL 2021-09-02 Ali, [facility]iba [facility] POCT-SODIUM 2021-09-02 Ali, Hiba Cooper [facility] 17:15:00 [facility] POCT-POTASSIUM 2021-09-02 Ali, Hiba Cooper [facility] 17:15:00 [facility] POCT-HEMOGLOBIN 2021-09-02 Ali, Hiba Cooper [facility] 17:15:00 [facility] POCT-HEMATOCRIT 2021-09-02 Ali, Hiba Cooper [facility] 17:15:00 [facility] POCT-GLUCOSE 2021-09-02 Kevon Barrientosa Cooper [facility] 17:15:00 [facility] XR CHEST 1 VIEW PORTABLE / BEDSIDE 2021-09-[address] [facility] 16:58:00 [facility] ECG 12-LEAD 2021-09-02 Unknown, Hl7 [facility] 16:50:07 [facility] ECG 12-LEAD 2021-09-[address] [facility] 16:50:07 [facility] ECG 12-LEAD 2021-09-02 Unknown, Hl7 [facility] 16:49:46 [facility] ECG 12-LEAD 2021-09-02 Unknown, Hl7 [facility] 16:49:46 [facility] ECG 12-LEAD 2021-09-02 Unknown, Hl7 [facility] 16:48:34 [facility] ECG 12-LEAD 2021-09-02 Unknown, Hl7 [facility] 16:48:19 [facility] CBC W/PLT COUNT & AUTO 2021-09-02 Ali, Hiba Cooper [facility] DIFFER[facility] 05:14:00 [facility] CBC W/PLT COUNT & AUTO 2021-09-02 Ali, Hiba Cooper [facility] DIFFER[facility] 05:14:00 [facility] BASIC METABOLIC PANEL 2021-09-02 Ali, Hiba Cooper [facility] 05:14:[address] [facility] [address] CHEST WITH IV CONTRAST 2021-09-01 Ali, Hiba Cooper [facility] 23:45:00 [facility] FERRITIN 2021-09-01 Ali, Hiba Cooper [facility] 17:14:00 [facility] IRON, TIBC, % SAT. (WITHOUT 2021-09-01 Ali, Hiba Cooper [facility] FERRITIN) 17:14:00 [facility] 2D ECHO W/ DOPPLER (CW/PW/COLOR) 2021-09-[address] [facility] 13:34:34 [facility] [place] ESOPH SWALLOW FUNCT WITH CINE 2021-09-[address] [facility] VIDEO 11:43:00 [facility] REPORT OF PROCEDURE - ENDOSCOPY 2021-09-[address] [facility] URL 08:31:23 [facility] ESOPHAGOGASTRODUODENOSCOPY 2021-09-[address] [facility] 07:49:00 [facility] CBC W/PLT COUNT & AUTO 2021-09-[address] [facility] DIFFERENTIAL 05:48:00 [facility] CBC W/PLT COUNT & AUTO 2021-09-01 Jonnie, Michael Hendrickson [facility] DIFFERENTIAL 05:48:00 [facility] BASIC METABOLIC PANEL 2021-09-01 Jonnie, Michael Hendrickson [facility] 05:48:00 [facility] HEPATIC FUNCTION PANEL 2021-09-01 Jonnie, Michael Hendrickson [facility] 05:48:00 [facility] PROTHROMBIN TIME/INR 2021-09-01 Jonnie, Michael Hendrickson [facility] 05:48:00 [facility] MAGNESIUM 2021-09-01 Jonnie Michael Hendrickson [facility] 05:48:00 [facility] PHOSPHORUS 2021-09-01 Jonnie Michael Hendrickson [facility] 05:48:00 [facility] TSH/FREE T4 IF INDICATED 2021-09-[address] [facility] 05:48:00 [facility] ECG 12-LEAD 2021-08-31 Unknown, Hl7 [facility] 16:26:58 [facility] ECG 12-LEAD 2021-08-31 Unknown, Hl7 [facility] 16:26:58 [facility] SARS-COV2/RT-PCR ([facility]) 2021-08-[address] [facility] 14:36:00 [facility] LACTIC ACID, VENOUS 2021-08-[address] [facility] 12:48:00 [facility] CBC W/PLT COUNT & AUTO 2021-08-[address] [facility] DIFFERENTIAL 12:46:00 [facility] BASIC METABOLIC PANEL 2021-08-[address] [facility] 12:46:00 [facility] CBC W/PLT COUNT & AUTO 2021-08-[address] [facility] DIFFERENTIAL 12:46:00 [facility] HIGH SENSITIVITY TROPONIN I 2021-08-[address] [facility] 12:46:00 [facility] PROTHROMBIN TIME/INR 2021-08-[address] [facility] 12:46:00 [facility] APTT 2021-08-[address] [facility] 12:46:00 [facility] EKG-SCANNED 2021-08-[address] [facility] 00:00:00 [facility] [place] ESOPHAGUS 2021-07-[address] [facility] 10:07:00 [facility] BASIC METABOLIC PANEL 2021-07-04 Bernarda Bird [facility] 04:05:00 [facility] SARS-COV2/RT-PCR ([facility]) 2021-07-03 GeorgeBrie graysone n [facility] 16:14:00 [facility] D-DIMER 2021-07-03 George, Thuyen [facility] 16:14:00 [facility] BLOOD GAS, VENOUS 2021-07-03 George, Thuyen [facility] 16:14:00 [facility] XR CHEST 2 VIEWS 2021-07-03 George, Thuyen [facility] 13:42:00 [facility] CBC W/PLT COUNT & AUTO 2021-07-03 George, [facility] DIFFERENTIAL 13:28:00 [facility] B-TYPE NATRIURETIC FACTOR (BNP) 2021-07-03 George, Thuyen [facility] 13:28:00 [facility] COMPREHENSIVE METABOLIC PANEL 2021-07-03 George, [facility] 13:28:00 [facility] CBC W/PLT COUNT & AUTO 2021-07-03 George, Th[facility]en [facility] DIFFERENTIAL 13:28:00 [facility] LIPASE 2021-07-03 George, Thuyen [facility] 13:28:00 [facility] HIGH SENSITIVITY TROPONIN I 2021-07-03 George, Thuyen [facility] 13:28:00 [facility] ECG 12-LEAD 2021-07-03 George, Thuyen [facility] 13:11:56 [facility] ECG 12-LEAD 2021-07-03 Unknown, Hl7 [facility] 13:11:56 [facility] EKG-SCANNED 2021-07-[address] [facility] 00:00:00 Scanning [facility] HEMOGLOBIN AND HEMATOCRIT 2021-05-26 Gadicherla, Noa [facility] 04:39:00 [facility] PREPARE LEUKO-REDUCED RBC 2021-05-25 Obdulia, Suellen [facility] 23:54:00 [facility] HEMOGLOBIN AND HEMATOCRIT 2021-05-25 Gadicherla, Noa [facility] 18:30:00 [facility] HEMOGLOBIN AND HEMATOCRIT 2021-05-25 Gadicherla, Noa [facility] 10:43:00 [facility] HEMOGLOBIN AND HEMATOCRIT 2021-05-25 Gadicherla, Noa [facility] 04:19:00 [facility] HEMOGLOBIN AND HEMATOCRIT 2021-05-[address] [facility] 16:22:00 [facility] HEMOGLOBIN AND HEMATOCRIT 2021-05-[address] [facility] 08:03:00 [facility] BASIC METABOLIC PANEL (7) 2021-05-24 Angeli, Naye [facility] 08:03:00 [facility] TRANSFUSE LEUKO-REDUCED RED BLOOD 2021-05-24 Obdulia, Suellen [facility] CELLS 01:55:00 [facility] SARS-COV2/RT-PCR ([facility]) 2021-05-23 Obdulia, Suellen [facility] 19:01:00 [facility] TYPE AND SCREEN, AUTOMATED 2021-05-23 Obdulia, Suellen [facility] 16:24:00 [facility] CBC W/PLT COUNT & AUTO 2021-05-23 Obdulia, Suellen [facility] DIFFERENTIAL 16:24:00 [facility] CBC W/PLT COUNT & AUTO 2021-05-23 Obdulia, Suellen [facility] DIFFERENTIAL 16:24:00 [facility] PT/APTT 2021-05-23 Obdulia, Suellen [facility] 16:24:00 [facility] COMPREHENSIVE METABOLIC PANEL 2021-05-23 Obdulia, Suellen [facility] 16:23:00 [facility] LIPASE 2021-05-23 Rajjuliane, Suellen [facility] 16:23:00 [facility] ECG 12-LEAD 2021-05-23 Unknown, Hl7 [facility] 15:13:04 Doctor [facility] EKG-SCANNED 2021-05-[address] [facility] 00:00:00 Scanning [facility] CBC W/PLT COUNT & AUTO 2021-05-[address] [facility] DIFFERENTIAL 04:10:00 [facility] CBC W/PLT COUNT & AUTO 2021-05-20 Alao, Titilola [facility] DIFFER[facility] 04:10:00 [facility] BASIC METABOLIC PANEL (7) 2021-05-[address] [facility] 04:10:00 [facility] CBC (HEMOGRAM ONLY) 2021-05-[address] [facility] 03:43:00 [facility] BASIC METABOLIC PANEL (7) 2021-05-17 Raegan [facility] 03:43:00 [facility] HEMOGLOBIN AND HEMATOCRIT 2021-05-16 Jacky [facility]egan [facility] 20:11:00 [facility] REPORT OF PROCEDURE - ENDOSCOPY 2021-05-[address] [facility] URL 11:57:57 [facility] ESOPHAGOGASTRODUODENOSCOPY 2021-05-16 Jimmy Bowers [facility] 11:15:00 [facility] CBC W/PLT COUNT & AUTO 2021-05-[address] [facility] DIFFERENTIAL 04:48:00 [facility] CBC W/PLT COUNT & AUTO 2021-05-[address] [facility] DIFFERENTIAL 04:48:00 [facility] BASIC METABOLIC PANEL (7) 2021-05-[address] [facility] 04:48:00 [facility] HEMOGLOBIN AND HEMATOCRIT 2021-05-[address] [facility] 23:52:00 [facility] SARS-COV2/RT-PCR ([facility]) 2021-05-15 Nathaniel Steward a [facility] 16:46:00 [facility] ECG 12-LEAD 2021-05-15 Unknown, Hl7 [facility] 15:26:10 [facility] TYPE AND SCREEN, AUTOMATED 2021-05-15 Jacobo Steward [facility] 15:00:00 [facility] CBC W/PLT COUNT & AUTO 2021-05-[address] [facility] DIFFERENTIAL 15:00:00 [facility] CBC W/PLT COUNT & AUTO 2021-05-[address] [facility] DIFFERENTIAL 15:00:00 [facility] COMPREHENSIVE METABOLIC PANEL 2021-05-[address] [facility] 15:00:00 [facility] MAGNESIUM 2021-05-[address] [facility] 15:00:00 [facility] PHOSPHORUS 2021-05-[address] [facility] 15:00:00 [facility] HIGH SENSITIVITY TROPONIN I 2021-05-[address] [facility] 15:00:00 [facility] XR CHEST 1 VIEW PORTABLE / BEDSIDE 2021-05-[address] [facility] 13:52:00 [facility] EKG-SCANNED 2021-05-15 Provider, Brigid [facility] 00:00:00 [facility] EGD (ENDO) 2019[facility]04[facility]22 [facility] 12[facility]55:59 Willy [facility] DAY SURGERY - ADC 2019-04-22 Doctor [facility] 05:01:00 Unassigned, No [facility] Plan of Care Planned Activity Planned Date Details Comments Source Future Scheduled 2023-04-[address] [facility] Test 00:00:00 (#1) [code = [facility] Influenza Vaccine (#1)] Future Scheduled 2023-04-[address] [facility] Test 00:00:00 (#1) [code = [facility] Influenza Vaccine (#1)] Future Scheduled 2022-10-04 [...] [facility] (12+) [code = Medical Center DEPRESSION SCREENING (12+)] Future Scheduled 2022-08-19 FALLS RISK SCREENING [facility] Test 00:00:00 [code = FALLS RISK Medical C enter SCREENING] Future Scheduled 2022-08-[address] [facility] Test 00:00:00 (12+) [code = Medical Center DEPRESSION SCREENING (12+)] Future Scheduled 2022-08-19 F[place] RISK SCREENING [facility] Test 00:00:00 [code = FALLS RISK Medical C enter SCREENING] Future Scheduled 2022-04-[address] [facility] Test 00:00:00 (#1) [code = [facility] INFLUENZA VACCINE (#1)] Future Scheduled 2022-04-[address] [facility] Test 00:00:00 (#1) [code = [facility] INFLUENZA VACCINE (#1)] Future Scheduled 2022-04-[address] [facility] Test 00:00:00 (#1) [code = [facility] INFLUENZA VACCINE (#1)] Future Scheduled 2021-09-12 COVID-19 VACCINE (2 - [facility]00 Pfizer series) [code Medical Center = COVID-19 VACCINE (2 - Pfizer series)] Future Scheduled 2021-09-12 COVID-19 VACCINE (2 - [...] ID 2021-09-20 Outpatient 3 VICKY BELTRAN CRD [id number] [facility] 15:05:33 [facility] [place] 2021-09-15 Outpatient 3 RUBY, ENCPL CRD [id number] [facility] 14:41:07 ALBA [facility] [place] 2021-09-14 Outpatient 3 [id number] ENCPL CRD [id number] [facility] 13:28:13 [facility] [place] 2021-09-14 Outpatient 3 [id number] ENCPL REF [id number] [facility] 13:27:27 [facility] [place] 2021-09-14 Outpatient 3 [id number] ENCPL REF [id number] [facility] 13:27:13 [facility] [place] 2021-05-28 Inpatient ER ELLA FRACISCO [facility] [id number] [facility] 12:00:47 RYLAN 2023-06-03 2023-06-03 Outpatient R [facility] [id number] [facility] 13:00:00 13:00:00 ARACELI monroy o f [facility] 2023-04-08 2023-04-08 Orders Doctor LIDIA [id number] [facility] 00:00:00 00:00:00 Only Unassigned, ANA MARIA 350.1.13.10 ity of [place] [facility] 4.2.7.2.686 Tomas as [id number] [address] 2021-11-21 2021-11-21 Anesthesia David [facility] [id number] 23:59:59 23:59:59 Event Jackelyn Zelaya [facility] 2021-11-06 2021-11-06 Telephone Elle [facility] [id number] [facility] 2021-10-04 2021-10-04 Office Mack [facility] [id number] 09:00:00 09:30:00 Visit [facility] 2021-10-04 2021-10-04 Outpatient CHRIS PARK FRACISCO [facility] [id number] SLE 08:41:28 08:41:28 [facility] 2021-08-31 2021-09-19 Inpatient ER FRACISCO ARNOLD Surgery [id number] [facility] 12:30:00 17:01:00 [facility] 2021-08-31 2021-09-19 Hospital ER Alexa Fitzgerald [facility] [id number] [facility] 12:30:00 17:01:00 Encounter Michael Crist[facility], Raz Saldivar, Bartolo Juan CarlosGenia 2021-09-07 2021-09-07 Anesthesia Rocky, [facility] [id number] 07:58:00 15:09:00 Event Darrel [facility] [employer] [facility] 2021-09-07 2021-09-07 Surgery Ramya, [facility] [id number] 08:00:00 11:45:00 [facility] 2021-09-03 2021-09-03 Outpatient NAVYA CAMARILLO [id number] Navya 00:00:00 00:00:00 ELLIS hendrickson 2021-09-01 2021-09-01 Surgery Maria Teresa, [facility] [id number] 08:00:00 09:00:00 [facility] 2021-09-01 2021-09-01 Anesthesia Timmy Juan [facility] [id number] 08:01:00 08:36:00 Event Larry Holbrook [facility] 2021-08-31 2021-08-31 Orders [facility] [id number] 00:00:00 00:00:00 Only [facility] 2021-08-31 2021-08-31 Travel [facility] [id number] [facility] 00:00:00 00:00:00 [facility] 2021-07-28 2021-08-04 Inpatient 3 RUBY, ENCPL CRD [id number] [facility] 12:00:00 11:50:00 ALBA 12[facility] 2021-07-03 2021-07-04 Outpatient ER DARLENE SPARKS [facility] Emergency 20 [id number] [facility] 12:24:00 14:27:00 2021-07-03 2021-07-04 Emergency ER Tacos George [facility] [id number] 12:24:00 14:27:00 Darlene Sparks [facility] 2021-07-03 2021-07-03 Orders [facility] [id number] 00:00:00 00:00:00 Only [facility] 2021-07-03 2021-07-03 Travel [facility] [id number] [facility] 00:00:00 00:00:00 [facility] 2021-05-23 2021-05-26 Inpatient ER FRACISCO QUINTANILLA Emergency 20 [id number] SLE 15:12:00 15:03:00 NOA 2021-05-23 2021-05-26 Hospital ER Gottlieb [facility] [id number] 15:12:00 15:03:00 Encounter Madikodifuentesyou Noa Benjamin [facility] 2021-05-23 2021-05-23 Travel [facility] [id number] [facility] 00:00:00 00:00:00 [facility] 2021-05-20 2021-05-20 Emergency ER Tara [facility] [id number] 06:07:00 06:08:00 [facility] 2021-05-20 2021-05-20 Emergency ER SLE Emergency [id number] SLE 01:57:00 01:57:00 2021-05-20 2021-05-20 Travel [facility] [id number] [facility] 00:00:00 00:00:00 [facility] 2021-05-15 2021-05-17 Emergency ER [facility], [facility] [id number] [facility] 12:10:00 12:56:00 Bar Toledo [facility] Jonnie, [facility] 2021-05-16 2021-05-16 Anesthesia Dillon Tenorio [facility] [id number] 11:24:00 12:17:00 Event Joyce Boss [facility] 2021-05-16 2021-05-16 Surgery Robinson, [facility] [id number] 11:00:00 12:00:00 Jimmy [facility] 2021-05-15 2021-05-15 Emergency ER [facility] Emergency [id number] [facility] 12:00:00 12:00:00 2021-05-15 2021-05-15 Travel [facility] [id number] [facility] 00:00:00 00:00:00 [facility] 2019-04-22 2019-04-22 [facility] 1.2.840.114 [id number] 06:15:00 08:56:00 Encounter eKaty 350.1.13.10 [place] 4.2.7.2.686 Surgical [id number] [place] [address] 2019-04-22 2019-04-[address]840[address]114 7 [id number] [facility] 06:15:00 08:56:00 Encounter Katy reyeston 350.1.13.10 [place]y [place] [id number] [facility] [address] 2019-04-22 2019-04-22 Anesthesia [address]840.114 [id number] 07:54:00 08:13:00 Jaden Loyola 350.1.13.10 [place] 4.2.7.2.686 Surgical [id number] [place] [address] 2019-04-22 2019-04-22 Anesthesia [address]840.114 [id number] Univers 07:54:00 08:13:00 Jaden Loyola 350.1.13.10 [place] [id number] [address] 2019-04-22 2019-04-22 Orders Doctor LIDIA 1.2.840.114 [id number] 00:00:00 00:00:00 Only Unassigned, ANA MARIA 350.1.13.10 [place] [facility] 4.2.7.2.686 [id number] 2019-04-22 2019-04-22 Orders Doctor LIDIA 1.2.840.114 [id number] Univers 00:00:00 00:00:00 Only Unassigned, ANA MARIA 350.1.13.10 ity of [place] [facility] 4.2.7.2.686 Tomas as [id number] [facility] [address] Results Test Description Test Time Test Comments [...] NOT 1092) ACCURATE CRE ATININE CLEARANCE IN SC EDICTING GLOMERULAR FILT RATION RATE. ESTIMATED GFR IS NOT APPLICABLE FOR DIALYSIS PATIENTS. Video Journalist ID - KEARA WOperator ID - KAYLEEN [id number] 04:56:54 Test Item Value Reference Range Interpretation Comments PHOSPHORUS (BEAKER) (test code = 4.1 mg/dL 2.3-4.7 604) Video Journalist ID - KEARA [id number] 04:56:53 Test Item Value Reference Range Interpretation Comments MAGNESIUM (BEAKER) (test code = 2.1 mg/dL 1.6-2.6 627) Video Journalist ID - KEARA WCALCIUM, [id number] 04:30:35 Test Item Value Reference Range Interpretation Comments CALCIUM IONIZED (BEAKER) (test 1.13 mmol/L 1.12-1.27 code = 698) PH, BLOOD (BEAKER) (test code = 7.47 1810) PROTHROMBIN TIME/[id number] 04:04:47 Test Item Value Reference Range Interpretation Comments PROTIME (BEAKER) 27.1 seconds 11.9-14.2 H (test code = 759) INR (BEAKER) (test 2.54 See_Comment [Automat ed message] code = 370) The system Georgina Goodman generated this result transmitted ref erence range: <=5.90. The reference range was not used to int erpret this result as normal/abnormal . RECOMMENDED COUMADIN/WARFARIN INR THERAPY RANGESSTANDARD DOSE: 2.0 - 3.0 Includes: PROPHYLAXIS for venous thrombosis, systemic embolization; TREATMENT for venous thrombosis and/or pulmonary embolus.HIGH RISK: Target INR is 2.5-3.5 for patients with mechanical heart valves.CBC W/PLT COUNT & AUTO [id number] 03:57:43 Test Item Value Reference Range Interpretation [...] (BEAKER) (test code = 2801) COMPREHENSIVE METABOLIC [id number] 11:28:15 Test Item Value Reference Range Interpretation [...] S NOT APPLICABLE FOR DIALYSIS PATIEN TS. Video Journalist ID - PIAYA LRAD, CHEST, 1 VIEW, NON [id number] 07:44:00Reason for exam:->S/p Ct SurgeryShould this be performed at the bedside?->Yes [facility] 1945 Sex: MFINAL REPORT RAD, CHEST, 1 VIEW, NON DEPT INDICATION: S/p Ct Surgery COMPARISON: Prior day's exam FINDINGS: Portable frontal view of the chest. IMPRESSION: Support Lines: Overlyingleads. Lungs and pleura: Bibasilar atelectasis and basilar opacities, unchanged. No significant pneumothorax. Heart and mediastinum: Stable contours. Additional findings: None. Signed: Griselda Cordero Verified Date/Time: 09/18/2021 07:44:52 Reading Location: [facility] Reading Room PROTHROMBIN TIME/[id number] 04:28:26 Test Item Value Reference Range Interpretation Comments PROTIME (BEAKER) 24.0 seconds 11.9-14.2 H (test code = 759) INR (BEAKER) (test 2.18 See_Comment [Automat ed message] code = 370) The system Georgina Goodman generated this result transmitted ref erence range: <=5.90. The reference range was not used to int erpret this result as normal/abnormal . RECOMMENDED COUMADIN/WARFARIN INR THERAPY RANGESSTANDARD DOSE: 2.0 - 3.0 Includes: PROPHYLAXIS for venous thrombosis, systemic embolization; TREATMENT for venous thrombosis and/or pulmonary embolus.HIGH RISK: Target INR is 2.5-3.5 for patients with mechanical heart valves.[id number] 04:17:02 Test Item Value Reference Range Interpretation Comments MAGNESIUM (BEAKER) (test code = 2.0 mg/dL 1.6-2.6 627) Video Journalist ID - [id number] 04:17:02 Test Item Value Reference Range Interpretation Comments PHOSPHORUS (BEAKER) (test code = 3.6 mg/dL 2.3-4.7 604) Video Journalist ID - DBBASIC METABOLIC [id number] 04:17:01 Test Item Value Reference Range Interpretation [...] S NOT APPLICABLE FOR DIALYSIS PATIEN TS. Video Journalist ID - DBCALCIUM, [id number] 03:53:15 Test Item Value Reference Range Interpretation Comments CALCIUM IONIZED (BEAKER) (test 1.13 mmol/L 1.12-1.27 code = 698) PH, BLOOD (BEAKER) (test code = 7.47 1810) CBC W/PLT COUNT & AUTO [id number] 03:52:23 Test Item Value Reference Range Interpretation [...] PERCENT (BEAKER) (test code = 2801) POC-Glucose [id number] 17:37:37 Test Item Value Reference Range Interpretation Comments POC-Glucose Meter (test 160 mg/dL 70-110 H : TE STED AT [facility] code = 1538) [address] [place] [address], [facility] 30: Video Journalist/Techni bart ID = [id number] for Rowe, Mariss a Lab Interpretation (test Abnormal code = 21522-9) [facility]-Glucose [id number] 17:37:37 Test Item Value Reference Range Interpretation Comments POC-Glucose Meter (test 160 mg/dL 70-110 H : TE STED AT [facility] code = 1538) [address] [place] [address], [facility] 30: Video Journalist/Techni bart ID = [id number] for Rowe, Mariss a Lab Interpretation (test Abnormal code = 65707-9) [facility]-Glucose [id number] 17:37:37 Test Item Value Reference Range Interpretation Comments POC-Glucose Meter (test 160 mg/dL 70-110 H : TE STED AT [facility] code = 1538) [address] [place] [address], [facility] 30: Video Journalist/Techni bart ID = [id number] for Rowe, Mariss a Lab Interpretation (test Abnormal code = 89814-8) [facility]-GLUCOSE [id number] 17:37:37 Test Item Value Reference Range Interpretation Comments POC-GLUCOSE METER 160 mg/dL 70-110 H : TESTED A T [facility] 6720 (BEAKER) (test code = [facility], 1538) [address]: Video Journalist/Techni bart ID = [id number] for Sammie Mercado POCT-GLUCOSE [id number] 12:40:04 Test Item Value Reference Range Interpretation Comments POC-GLUCOSE METER 126 mg/dL 70-110 H : TESTED A T [facility] 6720 (BEAKER) (test code = [facility], 1538) 05160: Video Journalist/Techni bart ID = [id number] for Sammie Mercado [id number] 08:29:45 Test Item Value Reference Range Interpretation Comments PHOSPHORUS (BEAKER) (test code = 4.0 mg/dL 2.3-4.7 604) Video Journalist ID - [id number] 08:29:44 Test Item Value Reference Range Interpretation Comments MAGNESIUM (BEAKER) (test code = 2.1 mg/dL 1.6-2.6 627) Video Journalist ID - DBPOCT-GLUCOSE [id number] 08:09:33 Test Item Value Reference Range Interpretation Comments POC-GLUCOSE METER 91 mg/dL 70-110 : TESTED A T [facility] 6720 (BEAKER) (test code = [facility], 1538) 1959[address]: Video Journalist/Techni bart ID = [id number] for Sammie Lawson CBC W/PLT COUNT & AUTO [id number] 06:42:04 Test Item Value Reference Range Interpretation [...] PERCENT (BEAKER) (test code = 2801) PROTHROMBIN [id number] 06:23:57 Test Item Value Reference Range Interpretation Comments PROTIME (BEAKER) 23.1 seconds 11.9-14.2 H (test code = 759) INR (BEAKER) (test 2.08 See_Comment [Automat ed message] code = 370) The system Georgina Goodman generated this result transmitted ref erence range: <=5.90. The reference range was not used to int erpret this result as normal/abnormal . RECOMMENDED COUMADIN/WARFARIN INR THERAPY RANGESSTANDARD DOSE: 2.0 - 3.0 Includes: PROPHYLAXIS for venous thrombosis, systemic embolization; TREATMENT for venous thrombosis and/or pulmonary embolus.HIGH RISK: Target INR is 2.5-3.5 for patients with mechanical heart valves.CALCIUM, [id number] 05:53:20 Test Item Value Reference Range Interpretation Comments CALCIUM IONIZED (BEAKER) (test 1.13 mmol/L 1.12-1.27 code = 698) PH, BLOOD (BEAKER) (test code = 7.48 1810) RAD, CHEST, 1 VIEW, NON [id number] 05:22:00Reason for exam:->S/p Ct SurgeryShould this be performed at the bedside?->Yes [facility] 1945 Sex: MFINAL REPORT RAD, CHEST, 1 VIEW, NON DEPT INDICATION: S/p Ct Surgery COMPARISON:Prior day's exam FINDINGS: Portable frontal view of the chest. IMPRESSION: Support Lines: None Lungsand pleura: Unchanged scattered bilateral parenchymal opacities. No new consolidation. No pneumothorax. Heart and mediastinum: Stable contours. Additional findings: None. Signed: Halley Osullivan Verified Date/Time: 09/17/2021 05:22:46 POCT-GLUCOSE [id number] 21:59:07 Test Item Value Reference Range Interpretation Comments POC-GLUCOSE METER 118 mg/dL 70-110 H : TESTED A T [facility] 6720 (BEINESSA) (test code = [place], 1538) [address]: Video Journalist/Techni bart ID = [id number] for Co rtez, Pam [id number] 17:58:41 Test Item Value Reference Range Interpretation Comments MAGNESIUM (ELINAAKER) (test code = 2.0 mg/dL 1.6-2.6 627) Video Journalist ID - KEARA WPOCT-GLUCOSE [id number] 17:29:30 Test Item Value Reference Range Interpretation Comments POC-GLUCOSE METER 123 mg/dL 70-110 H : TESTED A T [facility] 6720 (BEAKER) (test code = [facility], 1538) 33769: Video Journalist/Techni bart ID = [id number] for Ba Sammie james POCT-GLUCOSE [id number] 12:52:33 Test Item Value Reference Range Interpretation Comments POC-GLUCOSE METER 122 mg/dL 70-110 H : TESTED A T [facility] 6720 (BEAKER) (test code = [facility], 1538) 32632: Video Journalist/Techni bart ID = [id number] for Parrish Mercadoa BASIC METABOLIC [id number] 08:28:13 Test Item Value Reference Range Interpretation [...] S NOT APPLICABLE FOR DIALYSIS PATIEN TS. Video Journalist ID - KEARA WPOCT-GLUCOSE [id number] 07:58:49 Test Item Value Reference Range Interpretation Comments POC-GLUCOSE METER 82 mg/dL 70-110 : TESTED A T [facility] 6720 (BEAKER) (test code = [facility], 1538) 59171: Video Journalist/Techni bart ID = [id number] for Sammie Lawson RAD, CHEST, 1 VIEW, NON [id number] 07:01:00Reason for exam:->S/p Ct SurgeryShould this be performed at the bedside?->Yes [facility] 1945 Sex: MFINAL [...] Stable contours. Additional findings: None. Signed: Griselda Corderoeport Verified Date/Time: 09/16/2021 07:01:13 Electronically signed by: GRISELDA CORDERO MD on 207:01 AMPHOSPHORUS 2021-09-16 05:10:07 Test Item Value Reference Range Interpretation Comments PHOSPHORUS (BEAKER) (test code = 4.4 mg/dL 2.3-4.7 604) Video Journalist ID - KEARA [id number] 05:10:06 Test Item Value Reference Range Interpretation Comments MAGNESIUM (BEAKER) (test code = 2.0 mg/dL 1.6-2.6 627) Video Journalist ID - KEARA [id number] 04:45:18 Test Item Value Reference Range Interpretation Comments PTT (test code = 46.4 See_Comment H [Automated message] 82896-7) The system Georgina Goodman generated this result transmitted ref erence range: 22.5 - 3 6.0 seconds. The reference range was not used to int erpret this result as normal/abnormal . Lab Interpretation (test Abnormal code = 12333-1) [facility] Test Item Value Reference Range Interpretation Comments PTT (test code = 46.4 See_Comment H [Automated message] 04112-8) The system Georgina Goodman generated this result transmitted ref erence range: 22.5 - 3 6.0 seconds. The reference range was not used to int erpret this result as normal/abnormal . Lab Interpretation (test Abnormal code = 60487-7) [facility] [facility]TT2022-01-29 04:45:18 Test Item Value Reference Range Interpretation Comments PTT (test code = 46.4 See_Comment H [Automated message] 42189-9) The system Georgina Goodman generated this result transmitted ref erence range: 22.5 - 3 6.0 seconds. The reference range was not used to int erpret this result as normal/abnormal . Lab Interpretation (test Abnormal code = 23020-0) [facility] Test Item Value Reference Range Interpretation Comments PARTIAL THROMBOPLASTIN TIME 46.4 seconds 22.5-36.0 H (BEAKER) (test code = 760) PROTHROMBIN TIME/[id number] 04:44:13 Test Item Value Reference Range Interpretation Comments PROTIME (BEAKER) 18.3 seconds 11.9-14.2 H (test code = 759) INR (BEAKER) (test 1.54 See_Comment [Automat ed message] code = 370) The system Georgina Goodman generated this result transmitted ref erence range: <=5.90. The reference range was not used to int erpret this result as normal/abnormal . RECOMMENDED COUMADIN/WARFARIN INR THERAPY RANGESSTANDARD DOSE: 2.0 - 3.0 Includes: PROPHYLAXIS for venous thrombosis, systemic embolization; TREATMENT for venous thrombosis and/or pulmonary embolus.HIGH RISK: Target INR is 2.5-3.5 for patients with mechanical heart valves.CALCIUM, [id number] 04:42:58 Test Item Value Reference Range Interpretation Comments CALCIUM IONIZED (BEAKER) (test 1.12 mmol/L 1.12-1.27 code = 698) PH, BLOOD (BEAKER) (test code = 7.47 1810) CBC W/PLT COUNT & AUTO [id number] 04:35:30 Test Item Value Reference Range Interpretation [...] PERCENT (BEAKER) (test code = 2801) POCT-GLUCOSE [id number] 20:58:14 Test Item Value Reference Range Interpretation Comments POC-GLUCOSE METER 104 mg/dL 70-110 : TESTED A T [facility] 6720 (BEAKER) (test code = [facility], 1538) [address]: Video Journalist/Techni bart ID = [id number] for Co rtez, Pam POCT-GLUCOSE [id number] 17:20:16 Test Item Value Reference Range Interpretation Comments POC-GLUCOSE METER 93 mg/dL 70-110 : TESTED A T [facility] 6720 (BEAKER) (test code = [facility], 1538) 715[address]: Video Journalist/Techni bart ID = [id number] for VÍCTOR MURILLO POCT-GLUCOSE [id number] 12:15:47 Test Item Value Reference Range Interpretation Comments POC-GLUCOSE METER 122 mg/dL 70-110 H : TESTED A T [facility] 6720 (BEAKER) (test code = [facility], 1538) [address]: Video Journalist/Techni bart ID = [id number] for VÍCTOR GRIMALDO POCT-GLUCOSE [id number] 07:26:33 Test Item Value Reference Range Interpretation Comments POC-GLUCOSE METER 95 mg/dL 70-110 : TESTED A T [facility] 6720 (BEAKER) (test code = [facility], 1538) [address]: Video Journalist/Techni bart ID = [id number] for VÍCTOR MURILLO RAD, CHEST, 1 VIEW, NON [id number] 07:09:00while patient is intubated or has chest tubes.Reason for exam:->Status post CV SurgeryShould thisbe performed at the bedside?->Yes [facility] 1945 Sex: MFINAL [...] MDReport Verified Date/Time: 09/15/2021 07:09:45 Reading Location: [facility] Radiology Reading Room Hepatic function [id number] 04:57:12 Test Item Value Reference Range Interpretation Comments Protein, Total (test 5.4 See_Comment L [Autom ated code = 2885-2) message] The system which generated this result transmit danet reference range : 6.0 - 8.3 gm/dL . The reference range was not u sed to interpret th is result as normal/abnormal . Albumin (test code = 2.9 g/dL 3.5-5.0 L 94649-4) Total Bilirubin (test 1.1 mg/dL 0.2-1.2 code = 1975-2) Bilirubin, Direct 0.6 mg/dL 0.1-0.5 H (test code = 1968-7) Alkaline Phosphatase 170 U/L 40-150 H (test code = 6768-6) AST (test code = 26 U/L 5-34 1920-8) ALT (test code = 43 U/L 6-55 1742-6) EMERSON (test code = EMERSON) Video Journalist ID - PIAYA L Lab Interpretation Abnormal (test code = 57152-6) [facility] CenterHepatic function [id number] 04:57:12 Test Item Value Reference Range Interpretation Comments Protein, Total (test 5.4 See_Comment L [Autom ated code = 2885-2) message] The system which generated this result transmit dante reference range : 6.0 - 8.3 gm/dL . The reference range was not u sed to interpret th is result as normal/abnormal . Albumin (test code = 2.9 g/dL 3.5-5.0 L 11041-2) Total Bilirubin (test 1.1 mg/dL 0.2-1.2 code = 1974-2) Bilirubin, Direct 0.6 mg/dL 0.1-0.5 H (test code = 1967-7) Alkaline Phosphatase 170 U/L 40-150 H (test code = 6768-6) AST (test code = 26 U/L - 192-8) ALT (test code = 43 U/L 1742-6) EMERSON (test code = EMERSON) Video Journalist ID - PIAYA L Lab Interpretation Abnormal (test code = 76727-5) [facility] Center[facility]atic function [id number] 04:57:12 Test Item Value Reference Range Interpretation Comments Protein, Total (test 5.4 See_Comment L [Autom ated code = 2885-2) message] The system which generated this result transmit dante reference range : 6.0 - 8.3 gm/dL . The reference range was not u sed to interpret th is result as normal/abnormal . Albumin (test code = 2.9 g/dL 3.5-5.0 L 13772-5) Total Bilirubin (test 1.1 mg/dL 0.2-1.2 code = 1974-2) Bilirubin, Direct 0.6 mg/dL 0.1-0.5 H (test code = 1967-7) Alkaline Phosphatase 170 U/L 40-150 H (test code = 6768-6) AST (test code = 26 U/L -34 1920-8) ALT (test code = 43 U/L 1742-6) EMERSON (test code = EMERSON) Video Journalist ID - PIAYA L Lab Interpretation Abnormal (test code = 70314-8) [facility] CenterHEPATIC FUNCTION [id number] 04:57:12 Test Item Value Reference Range Interpretation [...] (test code = 43 U/L 6-55 347) Video Journalist ID - KAYLEEN [id number] 04:57:11 Test Item Value Reference Range Interpretation Comments MAGNESIUM (BEAKER) (test code = 2.0 mg/dL 1.6-2.6 627) Video Journalist ID - ZACMARIELA [id number] 04:57:11 Test Item Value Reference Range Interpretation Comments PHOSPHORUS (BEAKER) (test code = 3.8 mg/dL 2.3-4.7 604) Video Journalist ID - KAYLEEN LBASIC METABOLIC [id number] 04:57:10 Test Item Value Reference Range Interpretation [...] S NOT APPLICABLE FOR DIALYSIS PATIEN TS. Video Journalist ID - PIAYA [id number] 04:49:45 Test Item Value Reference Range Interpretation Comments PARTIAL THROMBOPLASTIN TIME 44.9 seconds 22.5-36.0 H (BEAKER) (test code = 760) PROTHROMBIN TIME/[id number] 04:48:43 Test Item Value Reference Range Interpretation Comments PROTIME (BEAKER) 16.0 seconds 11.9-14.2 H (test code = 759) INR (BEAKER) (test 1.30 See_Comment [Automat ed message] code = 370) The system Georgina Goodman generated this result transmitted ref erence range: <=5.90. The reference range was not used to int erpret this result as normal/abnormal . RECOMMENDED COUMADIN/WARFARIN INR THERAPY RANGESSTANDARD DOSE: 2.0 - 3.0 Includes: PROPHYLAXIS for venous thrombosis, systemic embolization; TREATMENT for venous thrombosis and/or pulmonary embolus.HIGH RISK: Target INR is 2.5-3.5 for patients with mechanical heart valves.CBC W/PLT COUNT & AUTO [id number] 04:46:45 Test Item Value Reference Range Interpretation [...] PERCENT (BEAKER) (test code = 2801) CALCIUM, [id number] 04:42:09 Test Item Value Reference Range Interpretation Comments CALCIUM IONIZED (BEAKER) (test 1.11 mmol/L 1.12-1.27 L code = 698) PH, BLOOD (BEAKER) (test code = 7.48 1810) Prepare Leuko-Red [id number] 23:55:00 Test Item Value Reference Range Interpretation Comments CROSSMATCH (test code = 2264) COMPATIBLE Unit ABO (test code = A Pos 6198165) UNIT NUMBER (test code = [id number] 934-0) Status (test code = 1049289) TX_TIMEINCHART Blood Bank Product (test code RED BLOOD CELLS = 2263) PRODUCT CODE (test code = B1566R77 933-2) [facility] Center[facility]uko-Red [id number] 23:55:00 Test Item Value Reference Range Interpretation Comments CROSSMATCH (test code = 2264) COMPATIBLE Unit ABO (test code = A Pos 5385693) UNIT NUMBER (test code = [id number] 934-0) Status (test code = 2522448) [facility]INCB[facility]ERT Blood Bank Product (test code RED BLOOD CELLS = 2263) PRODUCT CODE (test code = [id number] 933-2) [facility] Center[facility]are Leuko-Red [id number] 23:55:00 Test Item Value Reference Range Interpretation Comments CROSSMATCH (test code = 2264) COMPATIBLE Unit ABO (test code = A Pos 0834636) UNIT NUMBER (test code = [id number] 934-0) Status (test code = 5526521) TX_TIMEINCHART Blood Bank Product (test code RED BLOOD CELLS = 2263) PRODUCT CODE (test code = J1184O94 933-2) [facility] CenterMAGNESIUM2022-01-27 21:30:13 Test Item Value Reference Range Interpretation Comments MAGNESIUM (BEAKER) (test code = 2.0 mg/dL 1.6-2.6 627) Video Journalist ID - PIAYA LPOCT-GLUCOSE [id number] 21:14:24 Test Item Value Reference Range Interpretation Comments POC-GLUCOSE METER 118 mg/dL 70-110 H : [facility] ([facility] (test code = [place], 1538) [address]: Video Journalist/Techni bart ID = [id number] for MORELIA WEBB BASIC METABOLIC [id number] 09:32:00 Test Item Value Reference Range Interpretation [...] S NOT APPLICABLE FOR DIALYSIS PATIEN TS. Video Journalist ID - PIAYA LCBC W/PLT COUNT & AUTO [id number] 09:06:06 Test Item Value Reference Range Interpretation [...] 2D Echo W/Doppler(CW/PW/Color)2021-09-14 08:48:39Ejection FractionSLEH ECHO [facility] W/Doppler(CW/PW/Color)2021-09-14 08:48:39Ejection FractionSLEH ECHO [facility]ART[facility] Echo W/Doppler(CW/PW/Color) 2021-09-14 08:48:39Ejection FractionSLE ECHO [facility]LAB [facility] HospitalPO[facility] [id number] 07:35:25 Test Item Value Reference Range Interpretation Comments POC-GLUCOSE METER 91 mg/dL 70-110 : TESTED A T [facility] 6720 (BEAKER) (test code = [facility] [place], 1538) [address]: Video Journalist/Techni bart ID = [id number] for CNIDI DAVALOS BASIC METABOLIC [id number] 06:05:56 Test Item Value Reference Range Interpretation [...] S NOT APPLICABLE FOR DIALYSIS PATIEN TS. Video Journalist ID - KAYLEEN LHEPATIC FUNCTION [id number] 06:05:56 Test Item Value Reference Range Interpretation [...] Specimen moderately (test code = 347) hemolyzed Video Journalist ID - KAYLEEN [id number] 06:05:55 Test Item Value Reference Range Interpretation Comments MAGNESIUM (BEAKER) 2.3 mg/dL 1.6-2.6 Specimen moderately (test code = 627) hemolyzed Video Journalist ID - KAYLEEN [id number] 06:05:55 Test Item Value Reference Range Interpretation Comments PHOSPHORUS (BEAKER) 3.8 mg/dL 2.3-4.7 Specimen moderately (test code = 604) hemolyzed Video Journalist ID - KAYLEEN [id number] 05:42:58 Test Item Value Reference Range Interpretation Comments PARTIAL THROMBOPLASTIN TIME 39.1 seconds 22.5-36.0 H (BEAKER) (test code = 760) PROTHROMBIN [id number] 05:42:16 Test Item Value Reference Range Interpretation Comments PROTIME (BEAKER) 14.8 seconds 11.9-14.2 H (test code = 759) INR (BEAKER) (test 1.18 See_Comment [Automat ed message] code = 370) The system Georgina Goodman generated this result transmitted ref erence range: <=5.90. The reference range was not used to int erpret this result as normal/abnormal . RECOMMENDED COUMADIN/WARFARIN INR THERAPY RANGESSTANDARD DOSE: 2.0 - 3.0 Includes: PROPHYLAXIS for venous thrombosis, systemic embolization; TREATMENT for venous thrombosis and/or pulmonary embolus.HIGH RISK: Target INR is 2.5-3.5 for patients with mechanical heart valves.CALCIUM, [id number] 05:36:36 Test Item Value Reference Range Interpretation Comments CALCIUM IONIZED (BEAKER) (test 1.07 mmol/L 1.12-1.27 L code = 698) PH, BLOOD (BEAKER) (test code = 7.42 1810) RAD, CHEST, 1 VIEW, NON [id number] 02:39:00while patient is intubated or has chest tubes.Reason for exam:->Status post CV SurgeryShould thisbe performed at the bedside?->Yes [facility] 1945 Sex: MFINAL [...] Osullivan MDReport Verified Date/Time: 09/14/2021 02:39:11 POCT-GLUCOSE [id number] 22:16:46 Test Item Value Reference Range Interpretation Comments POC-GLUCOSE METER 116 mg/dL 70-110 H : TESTED A T [facility] 6720 (BEAKER) (test code = [facility], 1538) [address]: Video Journalist/Techni bart ID = [id number] for VISHAL GAINES BASIC METABOLIC [id number] 17:49:41 Test Item Value Reference Range Interpretation [...] S NOT APPLICABLE FOR DIALYSIS PATIEN TS. Video Journalist ID - JACQUELINE [id number] 17:49:41 Test Item Value Reference Range Interpretation Comments MAGNESIUM (BEAKER) (test code = 2.2 mg/dL 1.6-2.6 627) Video Journalist ID - JACQUELINE CPOCT-GLUCOSE [id number] 17:28:04 Test Item Value Reference Range Interpretation Comments POC-GLUCOSE METER 153 mg/dL 70-110 H : TESTED A T [facility] 6720 (BEAKER) (test code [facility], = 1538) [address]: Video Journalist/Techni bart ID = [id number] for Ritchie Kathryn jacksonine POCT-GLUCOSE [id number] 11:25:51 Test Item Value Reference Range Interpretation Comments POC-GLUCOSE METER 122 mg/dL 70-110 H : TESTED A T [facility] 6720 (BEAKER) (test code = [place], 1538) [address]: Video Journalist/Techni bart ID = [id number] for PH ABDOULAYE ROJAS [id number] 11:03:29 Test Item Value Reference Range Interpretation Comments MAGNESIUM (BEAKER) (test code = 2.0 mg/dL 1.6-2.6 627) Video Journalist ID - JACQUELINE CBASIC METABOLIC [id number] 11:03:28 Test Item Value Reference Range Interpretation [...] S NOT APPLICABLE FOR DIALYSIS PATIEN TS. Video Journalist ID - JACQUELINE CVenous doppler arm, [id number] 10:17:08Ejection FractionSLEH ECHO HEARTLAB MKCKESSON [facility] CenterVenous doppler [facility], [id number] 10:17:08Ejection FractionSLEH ECHO HEARTLAB MKCKESSON [facility] CenterVenous doppler arm, [id number] 10:17:08Ejection FractionSLEH ECHO HEARTLAB MKCKESSON [facility] CenterType and screen, [id number] 09:38:00 Test Item Value Reference Range Interpretation Comments ABO/RH AUTOMATED (BEAKER) (test A POSITIVE code = 2260) Ab Scrn (test code = 890-4) NEGATIVE [facility] CenterType and screen, [id number] 09:38:00 Test Item Value Reference Range Interpretation Comments ABO/RH AUTOMATED (BEAKER) (test A POSITIVE code = 2260) Ab Scrn (test code = 890-4) NEGATIVE [facility] CenterType and screen, [id number] 09:38:00 Test Item Value Reference Range Interpretation Comments ABO/RH AUTOMATED (BEAKER) (test A POSITIVE code = 2260) Ab Scrn (test code = 890-4) NEGATIVE [facility] CenterRAD, CHEST, 1 VIEW, NON [id number] 08:40:00while patient is intubated or has chest tubes.Reason for exam:->Status post CV SurgeryShould thisbe performed at the bedside?->Yes [facility] 1945 Sex: MFINAL [...] MDReport Verified Date/Time: 09/13/2021 08:40:29 Reading Location: [facility] Radiology Reading Room POCT-GLUCOSE [id number] 08:01:34 Test Item Value Reference Range Interpretation Comments POC-GLUCOSE METER 89 mg/dL 70-110 : Notified RN/MD: TESTED (BEAKER) (test code = [facility] 67[address] 1538) [facility], [facility] 30: Video Journalist/Techni bart ID = [id number] for ABDOULAYE KATZ PROTHROMBIN TIME/[id number] 04:58:25 Test Item Value Reference Range Interpretation Comments PROTIME (BEAKER) 15.6 seconds 11.9-14.2 H (test code = 759) INR (BEAKER) (test 1.26 See_Comment [Automat ed message] code = 370) The system Georgina Goodman generated this result transmitted ref erence range: <=5.90. The reference range was not used to int erpret this result as normal/abnormal . RECOMMENDED COUMADIN/WARFARIN INR THERAPY RANGESSTANDARD DOSE: 2.0 - 3.0 Includes: PROPHYLAXIS for venous thrombosis, systemic embolization; TREATMENT for venous thrombosis and/or pulmonary embolus.HIGH RISK: Target INR is 2.5-3.5 for patients with mechanical heart valves.CBC W/PLT COUNT & AUTO [id number] 03:26:57 Test Item Value Reference Range Interpretation [...] (BEAKER) (test code = 2801) BASIC METABOLIC [id number] 02:43:59 Test Item Value Reference Range Interpretation [...] is on LVAD, which may hemolyze the blood.Video Journalist ID - KAYLEEN LHEPATIC FUNCTION [id number] 02:43:59 Test Item Value Reference Range Interpretation [...] Specimen moderately (test code = 347) hemolyzed Video Journalist ID - KAYLEEN [id number] 02:43:58 Test Item Value Reference Range Interpretation Comments PHOSPHORUS (BEAKER) 3.1 mg/dL 2.3-4.7 Specimen moderately (test code = 604) hemolyzed Video Journalist ID - PIMARIELA [id number] 02:43:57 Test Item Value Reference Range Interpretation Comments MAGNESIUM (BEAKER) 2.0 mg/dL 1.6-2.6 Specimen moderately (test code = 627) hemolyzed Video Journalist ID - PIMARIELA LOperator ID - KAYLEEN [id number] 02:41:16 Test Item Value Reference Range Interpretation Comments PARTIAL THROMBOPLASTIN TIME 44.3 seconds 22.5-36.0 H (BEAKER) (test code = 760) CALCIUM, [id number] 02:05:55 Test Item Value Reference Range Interpretation Comments CALCIUM IONIZED (BEAKER) (test 1.10 mmol/L 1.12-1.27 L code = 698) PH, BLOOD (BEAKER) (test code = 7.43 1810) Blood gas, [id number] 02:04:48 Test Item Value Reference Range Interpretation Comments pH, Declan (test code = 7.43 7.32-7.42 H 2746-6) pCO2, Declan (test code = 38 See_Comment L [Aut omated message] 755) The system [employer] generated this result transmit dante reference range : 41 - 51 mm Hg. The reference range was not used to interpret this result as normal/abnormal . pO2, Declan (test code = 40 See_Comment [Auto mated message] 2705-2) The system [employer] h generated this result transmit dante reference range : 25 - 40 mm Hg. The reference range was not used to interpret this result as normal/abnormal . O2 Sat, Declan (test code 76.6 % 40.0-70.0 H = 2711-0) HCO3, Declan (test code = 25 mmol/L 21-29 97344-9) Base Excess, Declan (test 0.9 mmol/L -2.0-3.0 code = 1927-3) Patient Temperature 37.0 (test code = 8310-5) FIO2 (test code = 1819) 21 Lab Interpretation Abnormal (test code = 04179-1) [facility] CenterBlood gas, [id number] 02:04:48 Test Item Value Reference Range Interpretation Comments pH, Declan (test code = 7.43 7.32-7.42 H 2746-6) pCO2, Declan (test code = 38 See_Comment L [Aut omated message] 755) The system [employer] generated this result transmit dante reference range : 41 - 51 mm Hg. The reference range was not used to interpret this result as normal/abnormal . pO2, Declan (test code = 40 See_Comment [Auto mated message] 2705-2) The system [employer] h generated this result transmit dante reference range : 25 - 40 mm Hg. The reference range was not used to interpret this result as normal/abnormal . O2 Sat, Declan (test code 76.6 % 40.0-70.0 H = 2711-0) HCO3, Declan (test code = 25 mmol/L 21-29 28773-4) Base Excess, Declan (test 0.9 mmol/L -2.0-3.0 code = 1927-3) Patient Temperature 37.0 (test code = 8310-5) FIO2 (test code = 1819) 21 Lab Interpretation Abnormal (test code = 78858-1) [facility] [id number] 02:04:48 Test Item Value Reference Range Interpretation Comments pH, Declan (test code = 7.43 7.32-7.42 H 2746-6) pCO2, Declan (test code = 38 See_Comment L [Aut omated message] 755) The system Georgina Goodman generated this result transmit dante reference range : 41 - 51 mm Hg. The reference range was not used to interpret this result as normal/abnormal . pO2, Declan (test code = 40 See_Comment [Auto mated message] 6435-2) The system Georgina Goodman generated this result transmit dante reference range : 25 - 40 mm Hg. The reference range was not used to interpret this result as normal/abnormal . O2 Sat, Declan (test code 76.6 % 40.0-70.0 H = 2711-0) HCO3, Declan (test code = 25 mmol/L -29 35971-4) Base Excess, Declan (test 0.9 mmol/L -2.0-3.0 code = 1927-3) Patient Temperature 37.0 (test code = 8310-5) FIO2 (test code = 1819) 21 Lab Interpretation Abnormal (test code = 37766-9) [facility] GAS, [id number] 02:04:48 Test Item Value Reference Range Interpretation [...] (BEAKER) (test code = 1819) 21.0 POCT-GLUCOSE [id number] 22:07:43 Test Item Value Reference Range Interpretation Comments POC-GLUCOSE METER 105 mg/dL 70-110 : TESTED A T [facility] 6720 [facility] (test code = [facility], 1538) [address]: Video Journalist/Techni bart ID = [id number] for GO VISHAL LOZA POCT-GLUCOSE [id number] 16:18:37 Test Item Value Reference Range Interpretation Comments POC-GLUCOSE METER 118 mg/dL 70-110 H : Notified RN/MD: (BRAXTON) (test code = TESTED AT [facility] 6720 1538) [facility], [address]: Video Journalist/Techni bart ID = [id number] for PH INISEAmy, ABDOULAYE Tissue [id number] 14:59:34 Test Item Value Reference Range Interpretation Comments Case Report (test code Surgical Pathology = 104) Report Case: [id number] Authorizing Provider: Colby Bui, Collected: 09/07/2021 12:07 PM Ordering Location: [facility] Received: 09/07/2021 03:40 PM PERIOPERATIVE SERVICES Pathologist: Ciro Diamond MD Specimen: Mitral Valve, MITRAL VALVE DIAGNOSIS (test code = h2niuISeCJOka6klRBRgbAY 3220) uZzEwMzNcZnRuYmpcdWMxIH tccnRmMVxlcGljOTYwMVxhb qPpBRKwkZIuK5AqzyzoTCyv OV7lZZ3tuPdweKRgqZLhUXG bFzKjy3xwd181pAJft0fcEW RNbjivpNp4kOueF74jk0W3P rrcR54ikPSxKFW2GSEyZSJn fOSwTLDeWRM5PREvyQXiS0e cYPQxLX3tyosgLCvnHGxsAS JisIL6VOZbwLWtX2LsYDRkM VwiBXHoiln2PxFrDe5kcHNm eTcyMFxwYXJkXHBsYWluXGZ zMjAgTUlUUkFMIFZBTFZFLC OMAIFVK2yHTxxacSMqVARHR OGUWLKNOUZZR7XWTUNDBMSJ NWFPE0QAIBYEUHzTFVVBZJO BF0WHRPOXHMZCG1YKFJUGAV sEDSOTC9INOE5VCUFpid37F TL5PqThi4S0IGN8AJKeVATa g7mnRFPmeQZxXdQuJwMyOiG vAbqbtFAeBXNaBvPxj2gyk5 01nDXie4pxMZFkWiE0pBVzD EGumNDxJ137IXYtSRuyw6pw w3UjEXMyjCUuw0M5BDLYtys nsWq5iActQ82ud0Z3AfveO0 haFDAdLQHhE6ZrHB9jSGFrO jj6IMW6QXT7BSSjGBYmU9Ya PE5vMEYizRUpTWh9p9opnPc xFLKeRTK0t8tbZJflwkBuNC 7iuy5eyYt7w2ndvmBdEHPyO UEhkXEMQQNqX1OmlGdlHe1l fYq2pQaoEdqhQGT8Biw2AE3 efi68ffk3pHkiEYDffpdpLn N0FTjjTTAnpyvfFDs4WPbfA PWihAA0CUIgsSYwR8KcTMBc VB2idol6FHU4MWdqRNVlIcA 4XEIfmWBxYQSztJbaXNsrf4 57VTK1LqSiLO1oC8Zps3W3n I1ttPEiRCYhcIYqVzRcQZDu th6peSYhFMjns4ZsIVK0zoW 7jYWqpQVmATTsIoM3DMweJC 9qhn69BPDpTOI0qr0tnPLqz KmoeuNzpBUeWSvoJ4YeJYNf e897EPInP2KcTHOmo5D2koM fWdOhQGIwgRI0epJ5SHAdNF 3tkvszl5psVZhrYAjyUWJbs mI9fuU2RFRlbNReW2QfiJ2q GXKpWW5shraby7yaEPP8QNc zPMCgPGS8TnRuSYQld8Pjtc y3ZkKsz1NaxXUhJXmvG36hc 152FBHdzsVyF1mgtHDttafn aMEdgeboJSsskkA8FJApPFj gazeyTFUuSKrtJ0opWuSvTB UrlWmbBKpzd9IiSVSqLXRkK wLguHNtSEJjMar9BUZgzKMi IQHqQqWjF6ehmkzsYoZAMHO qd8xdJ5ywnDWDoYOjM8TzDH hvbmUgTGluZTogNzEzLTYxN G51LUK8SZUyrp47 CPT Code(s) (test code h0iefGMqTRYooTZ0NpImLHH = 3357) co6uvu9DohUWhhEXdYKvinK RnyfKquv44xBA7fZ26ZA2nJ DKeOcM3NYLmsvI5Wst9INUe AJFtuLHmE471o2ceg4nubvM amMB8cPtjBHSnwnpkPhG0AS hoUDXsqaojKCi0XBsyHFOqb KB0LPCfcFFxJ5JpIVJiDX2m txa6IEE7SOviSRCbDoD9COM zqVVuGAVvmBvzHDnxs688JZ N4GdDhDQXoulBbxSwhaN9jE rUyZVD8BAFuQYrpDYZ8 CLINICAL HISTORY (test s1geaYDoICBkuZV6LlMmAXB code = 3356) up3ybh1MdsFIwnLNpZMbpuP ErfqWiyo50sIB2bL03LN6eQ ARoTgY4FLVnmwJ4Wjc6BTWw YWIzdHJkF389b6vpq7veeoQ smPC6gVkkITYyimnzJaA3WG gxUXRqzscsZYk8BAxmGFAwt OI2GSRheQMpK3UhAXLaZM5l kml5QSS8IIytLCMtVnK0FJZ wiIFkXYWfuNmuKUorw829AY E5RfSuRZYdokIbgQdqcF8vU nMyMCBBdHJpYWwgZmlicmls zEP7kF1wTVNbuHMfCElrshN mocEnzO4tpPWvyZNaGF2jiY xwYXJ9 SPECIMEN SOURCE (test e5gntCKbEIVaoZO1VuVsCTQ code = 3377) nf3ynv3RpnEZkaYVlXWrjsD UrluCbmj23pCR1fU04BW5dB DIyFkK0XHMmqoA2Nyy3JQRt YXDxxCJuJ104z4tog4refoI hiHY6sRdiFLPwnywpTvB5NW uaOGNxwapjKHk6WPcfQLYfq DP4BTXbtBCkK4VhYAGaJD3r lmu2BYZ1VJlsUVTnSjJ4BJK zaIZqORPddHjlGMslu973VS W2GuNsZBHtkyZsfSxtzP4aB nMyMCBNaXRyYWwgdmFsdmVc cGFyfQ== GROSS DESCRIPTION y3kuxQFkDBBlhGRcCxCuIHM (test code = 3366) mFAPkx7rjGVYmaNIwHhHyBr NcZnRuYmpcdWMxXGRlZmYwe 4ons932gLQbs9nuAKQiMaY2 cFTvJXNjeFGjO052x2mrx9r limVeyBD4HJCmXLE3HFjisq GahsD1UWsmpANsTwW1JQwal iHuRMmdoeGhlgVvWnq0XKUn A474UUR0eGysd3hxGOR0IZW hXWZbZmMzTg7kzFIhC214LZ QrPTFPNUHjgAf2SVMneyYhy fQblBBBa663S687e1vyPONk vlSrhOeTloxgt0mgO447LSD hcGVydzEyMjQwXHBhcGVyaD M0VBRbOM2hpxrrErFsVR0sn fkmKyLzGB9jzjh7SoDaUA2w cmdiNzIwXGhlYWRlcnkwXGZ wr2YpurfoOJ2cO4Qps4B7kM 9maXRcZGVmdGFiNzIwXGZvc l7ynSNnRKuoq9NbAHT2miB8 vXPlwIShTIUwGZ83Euhju4S tKgymITA6CMHjnoEeq5Dcm4 omHyPdhzAqI4exV8PqIFUdD AKrYPBmMyUdteIpr4Xup9Ft bOAqbKi6h9upSKHnFYQbfJs rg2bsTQS1MUNsP5L2hRSkd7 urPGlfBKNvpCT6ryzqNRqfF PKazrY7wwdrDVaqKQHuhCS5 kdwfXEvuWOBrPsH3mvewEKa iPNVgNZG0KToey209JFN9BA xzYmtwYWdlXHBnbmNvbnRcc GduZGVjXHBsYWluXHBsYWlu XGYwXGZzMjRccWxccGxhaW5 uQgOvGbByQXgvTM8iUDZcC8 npvKEzLCLsTQSdI6zyImHiu T7hrTuyOSdpuoZlNHQnZWUu V8PohrAlQPYnWPUhKVehKsJ rPSZgz8a4mRE7hMIeiWV9yC MxxSgmBnVgSO8uuXFjFL9nA GntJCjzdaRpb3VvIZ72tQXx obFgwbIqYt4nxGIqeUY9VXq 2ZSIgaXMgYSAzLjcgeCAzLj LrtNArBwGzO09nxGAsBW5mq AmqybHzp9L6gR0uXD4fIAnr rQoima70mQl2XIhic2juE0e 4pFepdLraA5qceaIcUQAnoX H6jUMsEQZyd3X3TO0zMNOsD ULeUOgzMMEwt58tgXcuUJ0p vT78CX4pGVK0jBZvkDClJUN 5jWjys8GsCNCiD9lmifHgXR X8KU3jpM9gKDQdMJJWzFRoa 8BaT0jbII0zxBGnl2IloFFy qYucy8LxnVgdcfEiVWRpANH hvcGpzq0bhjZcNZQxq33aRV YxDUzxQK80bOMuIRFpULSZH CXbHGCmukQujQi8LDTaEHW1 kE0abiYzfhNfu1QbjQe6wRC kIGluIEExLlxwYXJccGFyIE QtBIykKFSyN3XvxR6oKN2NH lbfZPVcVNTOC1YpL62iiUEs fQ== MICROSCOPIC w1bjwPXyETLhnMI7VhRsRUU DESCRIPTION (test code bs3ovr7SuoYPqrHLfTSmxyC = 3371) FtndMigh74pPH5pF74UR7qB FKxKnU4UZFpdrC2Qtz1VHSa JCTarWMhM606z2rcj3robiC acTZ1bNdoHQSccoxuMnP5MB dyNLIrmfecDCm1UCwhCIAvt GL6SZHscCCmB9CcJGHaZR7n nzg8KTM5PDxzFPYbLdS3EDD haLGfIYNjbPzhTPamc560FA M3WmPnAFYycvOceRnrqD9vP vUgRHSRINEda0ZyYAHrUTKl cn0= Gross assessment was [facility] performed at ([facility], code = 2777) Department of Pathology, [address] [place] [address], [place] [address], Technical component [facility] was performed at ([facility], code = 2778) Department of Pathology, [address] [place] [address], Professional component [facility] was performed at ([facility], code = 2779) Department of Pathology, [address] [place] [address], [facility] [id number] 14:59:34 Test Item Value Reference Range Interpretation Comments Case Report (test code Surgical Pathology = 104) Report Case: [id number] Authorizing Provider: Colby Bui, Collected: 09/07/2021 12:07 PM Ordering Location: [facility] Received: 09/07/2021 03:40 PM PERIOPERATIVE SERVICES Pathologist: Ciro Diamond MD Specimen: Mitral Valve, MITRAL VALVE DIAGNOSIS (test code = c8ruwFEkJAWck8oqEEEweQY 3220) uZzEwMzNcZnRuYmpcdWMxIH tccnRmMVxlcGljOTYwMVxhb iLvWJIyxRVaT8LvnweyTJhi UN7lGS3llIxqoJGnxIJrUWN tNiFoj3dio515aXGbx5nvTP ZXthmhmEi5yHkxW39ko5P9S qxmE04tdZBnCGD9XPDyXHTy dCQgYAEcSJT4VUSqbZWnC3z sAOGrQG6keerjBIwuHHidDY RrtJN3IFHqrANvE3GzBOSqK CqoXUIbind7OoIfAt0odSAy eTcyMFxwYXJkXHBsYWluXGZ zMjAgTUlUUkFMIFZBTFZFLC TFEUYLA9rDNtfppDUaXDBVY JCTOSQAKBRUP8MGJKUPJJVW QPDBY0QVLTIPHOiPONQLYRE DX5JWLVOBUNGUY8KPGSRUXP qULSMEZ4TTHP9LNNQvhs64V KF7IhWwb6S8ICN7ODOqXPFj z4qpHCLpbHIjFeAlUcOsIxY uJvoraKAhMOFuWaTpw6cxn0 30kCCrk0lnNDAuVjB2sDSyW VRysJErR321IMCkCIvql1od f2UvDQErmWRnv0B2FJCKnqy grUn4eWsdH60ju6X7UnanS7 vyYUAkUPVwV3PdGU8oTKHpT pd3KTQ1BMX6SXHbWOHuE9Kb YK3dPZScvUGuOGu4r3wcfRz aJYPzCTB8s4yqEQmonyKhCY 4gvy5pdLl2d5yruzMxHJNzX CVktFDAIMQsM1EkvJvkPb8d fKp9wJhpTlolRHG4Adv1NL6 gph20nsl4qOwaBCMlqjymEg K3JVxiXEXsguytYKh7SYbhM YXceDD0JGKyeXQxO1RsURDj QE7wwyt6PUY7WPluUCGjFhE 9PEXwdYPcSHOetPcjIMboe2 50XTD9UpLiMN5hQ5Nqb0Z5c V1mbPMtAFUjbVZtAgZoUQDk fj1cxTOaIKcif8NaSFO0hqB 5lLNpmECxYCUtKdW6KLudFN 1eaa44QLSfFJJ4hm1htREbn GezwmItxAOpBDaiH5PsTAAt k167ZBWvZ1ImGPHkh7X3itA iIgSjHCWvvDA3jtB5BFPzEV 1ihyops5bhKShmYMezWUWsa sK3hvD3MGFljDNdF2IyuM3c IIFyJE5ddreql9hlUJZ3WDl yHMIiNCX6HsSsYVLkz9Fxqq t6HuUcc8PclEVuDPwrS14ov 444RDTylaAxC2xgdGJeeysq eGJiblsxDSruhfR8JMSmQJh kmftiYBTuHPtgJ4rtUcNvOV ZysLtnCDhxy1YxKCJjTOZfB iKxpQLlFAAkWut7CEAssGSu VCAnOoRfM1oasbdfEqEHSPE ly4mnP8ebdIMArDXaX8JgPG hvbmUgTGluZTogNzEzLTYxN L81YYP9NTCplt39 CPT Code(s) (test code r0nukDJkMCEjaCL9MpRkXMW = 3357) uc7ctt5XgdJOxnFGqLJrspA QybeUjft09vQV3oW62RN5rF FRvBdU1XVSldcK9Sjx9EFBr BWDluLQhE424u6uyc7xsyoZ kfJB2kPgtCJOisjhgYhG6GN akDLFtslohHAx8JNhuADIam FM8CTRrqSIoG9BfOLJaVT9n zvb8AJG0NIlwLEFrQuA0JXA dhAMoZTYmwQleEPbyt899KN P8AjAmYJFnxtMudUkmeE5bU gGjGVT5MOGoDDftGMG2 CLINICAL HISTORY (test f2hcsXVfDSLrtKW0OmPgBEY code = 3356) sv6wgf2AxvVPqlAZeUDuxxY ZaceRvjh24kUM1cM30BG4nM HMvKqC7DXKbihI2Xyq8GENu XEAgvCIeC238b5rsk6tyrjU tlRD5dAomYAIzvzuoEgR8IJ eyDUMdcqjtULf4UHmmFFNod CK8YKVsfOOhB2WvSYKrXS7p qrj9KGF6ULjgCMPgSaQ4UVC zhXMuVEPlcXwrHTzro172SK Q7DiGiMXEohcDvdIzpmV3kW nMyMCBBdHJpYWwgZmlicmls cIL6kM8gGHMpvWJbTDkhdrC kzqTmcJ6tcKWcpRKpBD1ndD xwYXJ9 SPECIMEN SOURCE (test l0vjiVFdVZNkrUS5KlQbAQW code = 3377) ox9bcb4QjgOHfvSRbSFpxfQ TnpmIrcr30bCC7wD20WS5nC AErAuS9HRHeyuT5Zzy2KAXt XWLhvCXnA384v8odk3gqvaM hbWT3tBflHDTtlvauXjC2LI okELPonspnUDg7WXliCJXfi QD9GGQsdBFiL9ReYMZgHB0f jug1DDV7GWmlDDZuNrK6IZP pyZWrHUWiyCsfSLfdk887OF U5FqVfKOBjlkScaZbjwU6bZ nMyMCBNaXRyYWwgdmFsdmVc cGFyfQ== GROSS DESCRIPTION m5etxQUnJJOrdEOeAnAnVMJ (test code = 3366) tWQHkt6orEXEzyATmSkIhLe NcZnRuYmpcdWMxXGRlZmYwe 9rik486lPSde6rvNSXbCqP5 jGZpTVStjJPkY713g3eec4e gwvLqjBS7OWXiUOE2NPsyvi VhviD1RCastLRvKtS1BTjxb eNnXJfubaWhatWaXzi0NQHw C885CMF2lGuud5xtYMH7FFC oDEFqNoYoEw8aqQExP068JQ LvNRTZWPKuoYz1UWKeqmEri dGdpEYBs842Y054d0rkEHAv fiDunKvFrbqhu8xoV925ZEJ hcGVydzEyMjQwXHBhcGVyaD D5LXAxCY5wadqzVzAnWE3yr qshWfXnLS8dxhb6VjMlBY2c cmdiNzIwXGhlYWRlcnkwXGZ ay3ZaroroSM5aS1Cdj9V0fS 9maXRcZGVmdGFiNzIwXGZvc s7uuLHpQFoqf4VuWGI6olQ0 eHZyqVJyQHRvIY88Qevbm0T nJgnmHPM0ZUCppbQik2Lai6 pbRfHshgWgL9qqI1KdZMDgA HSaXNUyNkWshzKam4Ztd7Pa oOByfZh1u8seJVSbPARviEb zm4xwGJS3EQMyG2N4qAPpl0 isGTnuRZEyoBV8akjuPUjlS WSqmlJ9sclcZHtjLHHdsTS6 dbniJAtpBEZzMnS2gjgxFQs kHFXfEZJ3RLxmq741QPP7YV xzYmtwYWdlXHBnbmNvbnRcc GduZGVjXHBsYWluXHBsYWlu XGYwXGZzMjRccWxccGxhaW5 xOkRnNgRmUGoxRF7wZNXfR0 phxSHaHISfMFUxZ2nrIxZsm Z5xyQufYMtaaxOzKCVgNPPg W9PtzdKiEJEqYAWsYVfkKpY wGIYgr0k2dTL4cKDfbEA1qP JiyXkaLmEgOZ7cePArTM3oT TjvXVlkorDui7JyDG97hTLh gbYqpvKmLn5yfVGljVA4RTx 2ZSIgaXMgYSAzLjcgeCAzLj EdsHWdQcSuT03rcANkHS5pi NozqkKfb1B0jK0cVK2mNFhp cHzafj45xAe5KBzqi5nlU1t 7rFnomPopW1eitqAoBUSocB L1sMOxCUQmy4U3XT2hPNVpO VIxKJyhYSLma66trDqyGB9c mT49AF1lEOY0nQFaaNLhWLM 8kYbyq8KgUQGfT2htfyOzZV P5DB5liZ6aKITyMXQOhYQds 7NmH7fvZY4tjMFjb3UnbPRx uJyma3WpgMcgxiUiBGTzLTP tpoVngb6wnsGmVQRhw95xGW SjROguVY02yNGnHPMiLCOSX KQlUPRmpkGzkYm0HFQmJHY9 tZ5rrcLhefPxt4JukBp2mGX kIGluIEExLlxwYXJccGFyIE ThIZmwBIYjO0ReeS3cBA7UO ujuOHNySWHBE8CfE43rcOUj fQ== MICROSCOPIC k3qzlRAsZCDosCH9NsMcBQU DESCRIPTION (test code fn4yec6YbrLBapRImABoweS = 3371) PnczEksz08zIE9zD60BN9iS KDgVdA7IJPayzG5Cvi0AHAg PUCskVDnA692l5cfx5rqxsR arXE6zPjhOOMjvsjfAjD8QH xbILQrszfrNGk3GUloGANph MR2RPQhzJVlG2BqDCYhEO8u wvf1TYC0QEevBGQjNuF6ITE goLEzQKSjmXpiSYtwr560OY M0GpAzEBWyrvZjaQxtbJ6hD eVuBAJNSBMyb4FiDEDuOVLs cn0= Gross assessment was [facility] performed at ([facility], code = 2777) Department of Pathology, [address] [place] [address], Technical component [facility] was performed at ([facility], code = 2778) Department of Pathology, [address] [place] [address], Professional component [facility] was performed at ([facility], code = 2779) Department of Pathology, [address] [place] [address], [facility] [place] [id number] 14:59:34 Test Item Value Reference Range Interpretation Comments Case Report (test code Surgical Pathology = 104) Report Case: [id number] Authorizing Provider: Ramya Colby Ruddy, Collected: 09/07/2021 12:07 PM MD Ordering Location: [facility] Received: 09/07/2021 03:40 PM PERIOPERATIVE SERVICES Pathologist: Ciro Diamond MD Specimen: Mitral Valve, MITRAL VALVE DIAGNOSIS (test code = i5klrSGyRCMyk5ilOEZdsHP 3220) uZzEwMzNcZnRuYmpcdWMxIH tccnRmMVxlcGljOTYwMVxhb lSiIYMojNKxR1WnidflYPxu BV3eDO7ahZhcgVRthKWzCTN bRgQbz2oxc735gELeq5ydGJ MRcwtgqSw2qHkwM08mt2X1G hysE86eeSFvMLG4YIQrIEVq yNVdCLJyGNW3GZHcfFHuB7n sCKMmYZ9jwbhpSConTInsGJ SheNQ2FYAsaUGkL9LuPXJlD SoxQFWdxef1ZwOpDg1ohAPq eTcyMFxwYXJkXHBsYWluXGZ zMjAgTUlUUkFMIFZBTFZFLC TWLHAIZ6qNComxmKWeYGXKD CTTODQWNCEWS9UDTMMUDWXA CSVUY6KTEDNKWNjOONQMBWL YE4MTQPZQQXAWA6RCVNELOJ dZDCFCK0FALS1KOSHkeu23L WX4CcVqw5P0OBR1LDSbHNXe r0meUUFxaVXgJsKjYdRgWzN uBdthrNDcHUQrYwNsy2nao9 34dNXim1asIFYgSjX2uIKaP OLieFEiM992DYTlANgtk1cc j8LaIJGklUDhq4I0RBBZkye mtJc0aMlaU36cu9Z5AvwlP1 nqJSQsQUXzO6EzDA6cYNWpE du0NWG1FGH6HTShNTFoD4Ab PB4vJWEcxVPfQPt7a4yisHl cAAIpYBX1a3pyBCygurJuJC 7wqe3qsDh7k2klbdPeCXJtO OAeqGHNOWDnR8QysYbkTp2q qEp5cXcvHyemFVA9Eeq4UO6 afs35eea4eUnoFDVwnxmyQk T6AFegYWWeeqolEGb2EKsdB RNgrWK5GAOxpQMuK4UxLLLw HX7oiry1NHN0IJlxXMLiNqT 4BJVouPGuYAPkmOnbIXamg1 57MQJ1WsBsFY2yE2Cnm0I3z B9qaQMcUGZycTKwHxXbXGOz nu9yaIPcMVsft6ElQXQ5qdR 4zQObrWNlWUWnInB8UWycOO 9wxz79CTMgHTN1do1xvKEoz TuslbMztHQgCKtdT7IoDZZa c381UROuE7DkZEJhg6R4emG oSdLtDWNdxNR9orU9RKPyWJ 8cangmd3xpXWhfZPleILLzr gQ6kiU1NXYzcPHlZ9ZqwD2w FQGxFG7khpccd6zdSUO0TQf fPEJiFTD1WsGnOUYzd2Umpy o3XoLwi1RlpEWmIWruQ57er 061WFPkxwYaS7aqzYWkkqzu vEXifyipEFaypwR7HSRrJTj yoszhBFSnWQqrU6qaAtImXA PdpNfjBKgmu5EoVXHaWITzC wPrzVTfHUAzXdv2YGMahFCg QTGkZkWuQ2tdblrwSjTEIAH nv8beQ4ocyRNEnSYuZ1QfBQ hvbmUgTGluZTogNzEzLTYxN T71DWV7KNJmwp90 CPT Code(s) (test code s0sdaORcGQLhpBC4RkRjKWE = 3357) gi7phw8HpjEPhmBQyUWohwW WevsMgtq92lZF0mH85RO0wR YZtTlB3EQVtjxO2Ejr4ACAj JKZboRTyO746z0gxu5foswJ dcNB8fBatEWLvdtyfRbG5ZR beSRBnsmunRLo2FGftNTZpr SJ9CSTajMWzC3AkYMKoLP1m tfp7ZRA6LRukJFPcYbM2QDL hhXQrUQZncLutIOzyz808EZ E6CnHwAAQowyBblCaqgA5mP yOaUEC6BJGsYTdrLWZ0 CLINICAL HISTORY (test a1qjeRFiYURgrYA3PuNyTBX code = 3356) ah7wqz7QufBWegHHaBUakdE YwhzHukz84cPV3uN40NW3mP HSlZxR2CUKfxiR4Yfx8SWUn ZFAipCQwD602p1xxt4izzfY nxWO8vBddXCJtdeauBiS1ON rwBTFmtaxlORj2GPliSUDei SF3ZATeeWRiI8PeEWZtXN8p wkh0PLL9HSwfAEDfHwS8GHD ztQRkDYBaqUbdUHkpq589GA B2StPvOLOprgOjnQmqbX1tO nMyMCBBdHJpYWwgZmlicmls nVJ0eM7cOQPdhTLmAHfnjvF pvvEacG2ljVHbyMMkHI6xcX xwYXJ9 SPECIMEN SOURCE (test r6bplWToUBJwwJV3MxTqDJE code = 3377) ce8qza7WphQHqyCAyRMptnT WjduVsgw95yGG1vR98KJ9yA SDdQjL1AWTrjvA7Whd2JUTp HORddQTaX992m2ayc7griaS vaJY7uQblJHXmejegOvU5WK tpDUSuqzbpPFz7LAvlKNJcz XY7RZVfuPDiL1OxPQVqAK7i ikc0ZAW6ICveURPqIlQ1EDH foNGjQGTfhJvuDBtqt167KE M5EoGxCCBhzdAfgLcmmS6bN nMyMCBNaXRyYWwgdmFsdmVc cGFyfQ== GROSS DESCRIPTION f4butUJmNOIwiGHnUoJtXMQ (test code = 3366) zQGGkr0vwZPFbrHPlKgXpTa NcZnRuYmpcdWMxXGRlZmYwe 7idj693bZUbb4tvFTLmMlV5 xHYxMFNnqCQjL284h3jjz5z osaCbdID8KOCnGRN8KUxpil HkqeK5EWqdaJOsJnD1TMxyb jEgWEteiiEaiaTcDva1NFYu Y512BNH2cOyob8ivUTS0GYV wVBDnRyWkHi9rqDInG990JK NrOAHTPMAyeKh9SUKoyoTpo lNkrJFDb033F922n2kmZTTi pcSqnLxUdqqnn7bkQ532ZRL hcGVydzEyMjQwXHBhcGVyaD R1XHXtBF6ckiogLwFnWL9cc jnbMvLlRL6igsi7VzZzAN6d cmdiNzIwXGhlYWRlcnkwXGZ zi3YiiteoDH3iH1Lgn6G7cJ 9maXRcZGVmdGFiNzIwXGZvc j6gsXEbSExfq5AeSDS8xbH2 gBFnzYFnNCQnAD44Hwyfg0P kQaxzYBW5EBBpdlNcb1Uub9 wmObDitrXqD0xpH1NoYLKhP LLxCYNhGuGyylHow8Gxe7Ps yENqpCz8b1opDOGaYXTysBh cj0uwRBS8QVGvS4I9jJUzi2 fnKUgeYOZtmGF4qijqYAvoJ MBvmjN8outhIRgzNMBqaYC3 mrhbYZvvRDDcUjU0vijaWYs wTWWiXHW0MVzol109GLZ2TC xzYmtwYWdlXHBnbmNvbnRcc GduZGVjXHBsYWluXHBsYWlu XGYwXGZzMjRccWxccGxhaW5 zTgUzJpUlUIbjKH0rKHRiI2 njlQEnJFCkOCStJ9gbOsKtb T5jrCtgEMdwdjRfXQMsWCJk F8ZimkUxAWTeBVYhSQrjAtJ mGNCqm1m4lTA0gWAcfTP6iZ HjjVhyIvIeMT6daRLnVC8xY GuqAMebkoLah1NpMX87fYXg dgGheuAsKn0xtIPsmND8BEp 2ZSIgaXMgYSAzLjcgeCAzLj StlQUoWzShF41gtJKpGK3dt DjilvQkt1V1qB9gKY9cNSlj eMsivy28zRi5ZKekp4blT4x 2yYbtbQomW4icijTwMNZlyN U2gFSbTANdw2X3UH6pHODkV VHiNHmaJOWec21gcIudSZ5e uI66PW4tPIA8pUFjeQXgVKL 0cBvqu0KwIOWyX7kzkfDuOX D8JQ1bnU0wDOQaAXSXpFVrd 2ImR1dkTF9whKMfk4LbcRQl sEuhy9LxfLimiiJxXJSvCTO jdcXvxu7gscOmYEAkf84xHM YhFJxcCK92pUEqHDKiCYVEE LYgQPOphqMstMq9CKVgNBQ8 eZ3zufKxnyHta5RfaIi2zKW kIGluIEExLlxwYXJccGFyIE MdTDrbTXNmF4DzjK1wVE6WM mepSILnOGDKG5WaN08neXRy fQ== MICROSCOPIC q3tvsGTmQDCmtRC5UzFuUVB DESCRIPTION (test code kf1ydg3CqhIClaJNcYOsjrK = 3371) UyfuWgfk67zZB9hB61MR8jP ZXfCpP6RJEblrC5Xsw4FXBj VNVsnVSmG190y0pzf2immmI pzZH8eBnvUQUmqxmfSnG0YS ooZSUwmpykSCp4WEtdLSRtu PW0FVKnxDPyK8OuVFUsZG2t ypf7GQU4ZZsyDDKgXdG3JLE ujWKdBGFhuEmzEOofp909UX A7QkDmRZYhqfDtxXuppH0rG aDyTTNSWMGeq4RfUNIeOIGl cn0= Gross assessment was [facility] performed at ([facility], code = 2777) Department of Pathology, [address] [place] [address], Technical component [facility] was performed at ([facility], code = 2778) Department of Pathology, [address] [place] [address], Professional component [facility] was performed at ([facility], code = 2779) Department of Pathology, [address] [place] [address], [facility] CenterTISS[facility] [id number] 14:59:34Surgical Pathology Report Case: [id number] Authorizing Provider: Colby Bui, Collected:09/07/2021 12:07 PM Ordering Location: [facility] Received: 09/07/2021 03:40 PM PERIOPERATIVE SERVICES Pathologist: Ciro Diamond MD Specimen: Mitral Valve, MITRAL VALVE MITRAL VALVE, EXCISION:VALVULAR TISSUE WITH DEGENERATIVE CHANGES AND FOCAL CALCIFICATION Signing Pathologist Direct Phone Line: [phone] signed by Ciro Diamond MD on 09/12/2021 at 2:59 [id number] fibrillation, mitral valve insufficiencyMitral valveA. Received fresh labeled with the patient's name, medical record number and "mitral valve" is a 3.7 x 3.4 x 0.1 cm triangular portion ofyellow-white, slightly thickened valvular tissue. There is a small amount of attached, thickened chordae tendineae. The specimen is serially sectioned and no gross lesion are identified. Imaging Manager sections are submitted in A1.SASHA Graf, URSULA ([facility])cmPerformed.[facility], Department of Pathology, [address] [place] [address], [facility]kb[facility], Department of Pathology, [address] [place] [address], [facility]lhutxLong [facility], Department of Pathology, [address] [place] [address], [id number], [id number] 13:07:17 Test Item Value Reference Range Interpretation Comments CALCIUM IONIZED (BEAKER) (test 1.12 mmol/L 1.12-1.27 code = 698) PH, BLOOD (BEAKER) (test code = 7.49 1810) [id number] 13:05:22 Test Item Value Reference Range Interpretation Comments Potassium (test code = 4.1 meq/L 3.5-5.1 Speci men 2823-3) slightly hemolyzed EMERSON (test code = EMERSON) Video Journalist ID - MARZENA Lab Interpretation Normal (test code = 08612-6) [facility] 13:05:22 Test Item Value Reference Range Interpretation Comments Potassium (test code = 4.1 meq/L 3.5-5.1 Speci men 2823-3) slightly hemolyzed EMERSON (test code = EMERSON) Video Journalist ID - MARZENA M Lab Interpretation Normal (test code = 23358-4) [facility] 13:05:22 Test Item Value Reference Range Interpretation Comments Potassium (test code = 4.1 meq/L 3.5-5.1 Speci men 2823-3) slightly hemolyzed EMERSON (test code = EMERSON) Video Journalist ID - MARZENA Lab Interpretation Normal (test code = 93698-9) [facility]UM[facility] 13:05:22 Test Item Value Reference Range Interpretation Comments POTASSIUM (BEAKER) 4.1 meq/L 3.5-5.1 Specimen slightly (test code = 379) hemolyzed Video Journalist ID - MARZENA [id number] 13:05:21 Test Item Value Reference Range Interpretation Comments MAGNESIUM (BEAKER) 2.2 mg/dL 1.6-2.6 Specimen slightly (test code = 627) hemolyzed Video Journalist ID - MARZENA [id number] 13:05:21 Test Item Value Reference Range Interpretation Comments PHOSPHORUS (BEAKER) 2.6 mg/dL 2.3-4.7 Specimen slightly (test code = 604) hemolyzed Video Journalist ID - MARZENA MPOCT-GLUCOSE [id number] 11:29:26 Test Item Value Reference Range Interpretation Comments POC-GLUCOSE METER 126 mg/dL 70-110 H : Notified RN/MD: (BRAXTON) (test code = TESTED AT [place] [address]) [facility], [address]: Video Journalist/Techni bart ID = [id number] for PH ABDOULAYE ROJAS POCT-GLUCOSE [id number] 08:03:15 Test Item Value Reference Range Interpretation Comments POC-GLUCOSE METER 98 mg/dL 70-110 : Notified RN/MD: TESTED (BRAXTON) (test code = AT [place] [address]) [facility], [address]: Video Journalist/Techni bart ID = [id number] for ABDOULAYE KATZ Venous doppler arm, [id number] 06:52:54Ejection FractionSLEH ECHO HEARTLAB MKCKESSON [facility] CenterVen[facility], [id number] 06:52:54Ejection FractionSLEH ECHO HEARTLAB [facility] CenterVenous do[facility] arm, [id number] 06:52:54Ejection FractionSLEH ECHO HEARTLAB MKTRIN[facility]ON [facility] CenterRAD, CHEST, 1 VIEW, NON DEPT 2021-09-12 06:05:00while patient is intubated or has chest tubes.Reason for exam:->Status post CV SurgeryShould thisbe performed at the bedside?->Yes [facility] CENTERName: CADEN GILES : 1945 [...] MDReport Verified Date/Time: 09/12/2021 06:05:44 TIC FUNCTION [id number] 04:15:05 Test Item Value Reference Range Interpretation [...] (test code = 46 U/L 6-55 347) Video Journalist ID - MARZENA [id number] 04:15:04 Test Item Value Reference Range Interpretation Comments MAGNESIUM (BEAKER) (test code = 2.4 mg/dL 1.6-2.6 627) Video Journalist ID - MARZENA [id number] 04:15:04 Test Item Value Reference Range Interpretation Comments PHOSPHORUS (BEAKER) (test code = 3.3 mg/dL 2.3-4.7 604) Video Journalist ID - MARZENA MBASIC METABOLIC [id number] 04:15:03 Test Item Value Reference Range Interpretation [...] S NOT APPLICABLE FOR DIALYSIS PATIEN TS. Video Journalist ID - MARZENA MPT/[id number] 04:11:05 Test Item Value Reference Interpretation Comments Range Protime (test code = 15.8 See_Comment H [Autom ated 5902-2) message] The system which generated this result transmitted reference range : 11.9 - 14.2 seconds. The reference range was not used to interpret this result as normal/abnormal . INR (test code = 1.28 See_Comment [Automated 0541-6) message] The system which generated this result transmitted reference range : <=5.90. The reference range was not used to interpret this result as normal/abnormal . PTT (test code = 47.6 See_Comment H [Automated 60628-1) message] The system which generated this result [...] valves. Lab Interpretation Abnormal (test code = 01804-9) [facility] CenterPT/[id number] 04:11:05 Test Item Value Reference Interpretation Comments [...] (test code = 47.6 See_Comment H [Automated 26479-6) message] The system which generated this result [...] valves. Lab Interpretation Abnormal (test code = 32282-5) [facility] CenterPT/[id number] 04:11:05 Test Item Value Reference Interpretation Comments [...] (test code = 47.6 See_Comment H [Automated 61891-5) message] The system which generated this result [...] valves. Lab Interpretation Abnormal (test code = 80752-6) [facility] CenterPT/[id number] 04:11:05 Test Item Value Reference Range Interpretation [...] mechanical heart valves.CBC W/PLT COUNT & AUTO [id number] 04:06:36 Test Item Value Reference Range Interpretation [...] (BEAKER) (test code = 2801) Blood gas, [id number] 04:00:34 Test Item Value Reference Range Interpretation Comments pH, Arterial (test code 7.47 7.35-7.45 H = 2744-1) pCO2, Arterial (test 33 See_Comment L [Autom ated message] code = 2019-) The system [facility] generated this result transmit dante reference range : 35 - 45 mm Hg. The reference range was not used to interpret this result as normal/abnormal . pO2, Arterial (test 144 See_Comment H [Automa dante message] code = 2703-7) The system [employer] generated this result transmit dante reference range [...] 21 Lab Interpretation Abnormal (test code = 42452-1) [facility] CenterBl[facility] gas, [id number] 04:00:34 Test Item Value Reference Range Interpretation Comments pH, Arterial (test code 7.47 7.35-7.45 H = 2744-1) pCO2, Arterial (test 33 See_Comment L [Autom ated message] code = 2019-8) The system [employer] generated this result transmit dante reference range : 35 - 45 mm Hg. The reference range was not used to interpret this result as normal/abnormal . pO2, Arterial (test 144 See_Comment H [Automa dante message] code = 2703-7) The system [employer] generated this result transmit dante reference range [...] 21 Lab Interpretation Abnormal (test code = 35000-1) [facility] CenterBlood gas, [id number] 04:00:34 Test Item Value Reference Range Interpretation Comments pH, Arterial (test code 7.47 7.35-7.45 H = 2744-1) pCO2, Arterial (test 33 See_Comment L [Autom ated message] code = 2019-8) The system [facility] generated this result transmit dante reference range : 35 - 45 mm Hg. The reference range was not used to interpret this result as normal/abnormal . pO2, Arterial (test 144 See_Comment H [Automa dante message] code = 2703-7) The system ich generated this result transmit dante reference range [...] 21 Lab Interpretation Abnormal (test code = 81762-4) [facility] CenterBLOOD GAS, [id number] 04:00:34 Test Item Value Reference Range Interpretation [...] (test code = 1819) 21.0 Lactic Acid, [id number] 03:57:33 Test Item Value Reference Range Interpretation Comments Lactate, Art (test code = 0.8 mmol/L 0.5-2.2 2874) EMERSON (test code = EMERSON) Video Journalist ID - MARZENA M Lab Interpretation (test Normal code = 21943-8) [facility] CenterLactic Acid, [id number] 03:57:33 Test Item Value Reference Range Interpretation Comments Lactate, Art (test code = 0.8 mmol/L 0.5-2.2 2874) EMERSON (test code = EMERSON) Video Journalist ID - MARZENA Krishna Lab Interpretation (test Normal code = 75320-6) [facility] CenterLactic Acid, [id number] 03:57:33 Test Item Value Reference Range Interpretation Comments Lactate, Art (test code = 0.8 mmol/L 0.5-2.2 2874) EMERSON (test code = EMERSON) Video Journalist ID - MARZENA M Lab Interpretation (test Normal code = 55721-9) [facility] CenterLACTIC ACID, [id number] 03:57:33 Test Item Value Reference Range Interpretation Comments LACTATE BLOOD ARTERIAL (2) 0.8 mmol/L 0.5-2.2 (BEAKER) (test code = 2874) Video Journalist ID - MARZENA MCALCIUM, [id number] 03:56:36 Test Item Value Reference Range Interpretation Comments CALCIUM IONIZED (BEAKER) (test 1.13 mmol/L 1.12-1.27 code = 698) PH, BLOOD (BEAKER) (test code = 7.48 1810) [id number] 21:01:53 Test Item Value Reference Range Interpretation Comments MAGNESIUM (BEAKER) (test code = 2.2 mg/dL 1.6-2.6 627) Video Journalist ID - DBBASIC METABOLIC [id number] 21:01:52 Test Item Value Reference Range Interpretation [...] S NOT APPLICABLE FOR DIALYSIS PATIEN TS. Video Journalist ID - DBHemoglobin and dlqxsdrbdk2463-06-49 20:37:40 Test Item Value Reference Range Interpretation [...] = 4544-3) EMERSON (test code = EMERSON) Video Journalist ID - [id number] Lab Interpretation Abnormal (test code = 62974-2) [facility] CenterHemoglobin and [id number] 20:37:40 Test Item Value Reference Range Interpretation [...] = 4544-3) EMERSON (test code = EMERSON) Video Journalist ID - [id number] Lab Interpretation Abnormal (test code = 24554-0) [facility] CenterHemoglobin and [id number] 20:37:40 Test Item Value Reference Range Interpretation [...] = 4544-3) EMERSON (test code = EMERSON) Video Journalist ID - [id number] Lab Interpretation Abnormal (test code = 82132-3) [facility] CenterHEMOGLOBIN AND [id number] 20:37:40 Test Item Value Reference Range Interpretation Comments HEMOGLOBIN (BEAKER) (test code = 8.3 GM/DL 13.7-17.5 L 410) HEMATOCRIT (BEAKER) (test code = 26.6 % 40.1-51.0 L 411) Video Journalist ID - 6000POCT-GLUCOSE [id number] 20:36:55 Test Item Value Reference Range Interpretation Comments POC-GLUCOSE METER 110 mg/dL 70-110 : TESTED A T [facility] 6720 (BEAKER) (test code = [place], [address]) [address]: Video Journalist/Techni bart ID = [id number] for BEVERLEY WIGGINS POCT-GLUCOSE [id number] 16:19:31 Test Item Value Reference Range Interpretation Comments POC-GLUCOSE METER 127 mg/dL 70-110 H : TESTED A T [facility] 6720 (BEAKER) (test code = [facility], 1538) [address]: Video Journalist/Techni bart ID = [id number] for ABDOULAYE WOODS [id number] 12:45:58 Test Item Value Reference Range Interpretation Comments MAGNESIUM (BEAKER) (test code = 2.4 mg/dL 1.6-2.6 627) Video Journalist ID - [id number] 12:45:58 Test Item Value Reference Range Interpretation Comments PHOSPHORUS (BEAKER) (test code = 2.7 mg/dL 2.3-4.7 604) Video Journalist ID - RMBASIC METABOLIC [id number] 12:45:57 Test Item Value Reference Range Interpretation [...] S NOT APPLICABLE FOR DIALYSIS PATIEN TS. Video Journalist ID - RMCALCIUM, [id number] 12:25:40 Test Item Value Reference Range Interpretation Comments CALCIUM IONIZED (BEAKER) (test 1.09 mmol/L 1.12-1.27 L code = 698) PH, BLOOD (BEAKER) (test code = 7.46 1810) Oxygen saturation, [id number] 12:25:23 Test Item Value Reference Range Interpretation Comments O2 Saturation (Measured) (test code = 53.2 % 96321-9) [facility], [id number] 12:25:23 Test Item Value Reference Range Interpretation Comments O2 Saturation (Measured) (test code = 53.2 % 87976-2) [facility] Center[facility], [id number] 12:25:23 Test Item Value Reference Range Interpretation Comments O2 Saturation (Measured) (test code = 53.2 % 04325-9) [facility] Center[facility]YGEN SATURATION, [id number] 12:25:23 Test Item Value Reference Range Interpretation Comments O2 SATURATION (MEASURED) (BEAKER) 53.2 % (test code = 1455) POCT-GLUCOSE [id number] 11:12:10 Test Item Value Reference Range Interpretation Comments POC-GLUCOSE METER 87 mg/dL 70-110 : TESTED A T [facility] 6720 (BEAKER) (test code = [employer] [facility], 1538) [address]: Video Journalist/Techni bart ID = [id number] for HINT ON, PABLITO POCT-GLUCOSE [id number] 08:30:46 Test Item Value Reference Range Interpretation Comments POC-GLUCOSE METER 120 mg/dL 70-110 H : TESTED A T [facility] 6720 (BEAKER) (test code = [facility] [employer] [facility], 1538) [address]: Video Journalist/Techni bart ID = [id number] for PH INMEÑO ABDOULAYE OXYGEN SATURATION, [id number] 06:27:31 Test Item Value Reference Range Interpretation Comments O2 SATURATION (MEASURED) (BEAKER) 54.6 % (test code = 1455) HEPATIC FUNCTION [id number] 04:48:25 Test Item Value Reference Range Interpretation [...] Specimen moderately (test code = 347) hemolyzed Video Journalist ID - KEARA [id number] 04:48:24 Test Item Value Reference Range Interpretation Comments PHOSPHORUS (BEAKER) 2.8 mg/dL 2.3-4.7 Specimen moderately (test code = 604) hemolyzed Video Journalist ID - KEARA WBASIC METABOLIC [id number] 04:48:24 Test Item Value Reference Range Interpretation [...] S NOT APPLICABLE FOR DIALYSIS PATIEN TS. Video Journalist ID - KEARA [id number] 04:48:23 Test Item Value Reference Range Interpretation Comments MAGNESIUM (BEAKER) 2.1 mg/dL 1.6-2.6 Specimen moderately (test code = 627) hemolyzed Video Journalist ID - KEARA [id number] 04:45:21 Test Item Value Reference Range Interpretation [...] mechanical heart valves.CBC W/PLT COUNT & AUTO [id number] 04:41:38 Test Item Value Reference Range Interpretation [...] (BEAKER) (test code = 2801) LACTIC ACID, [id number] 04:32:15 Test Item Value Reference Range Interpretation Comments LACTATE BLOOD 1.0 mmol/L 0.5-2.2 Specimen moder ately ARTERIAL (2) (BEAKER) hemoly zed (test code = 2874) Video Journalist ID - KEARA WCALCIUM, [id number] 04:12:20 Test Item Value Reference Range Interpretation Comments CALCIUM IONIZED (BEAKER) (test 1.08 mmol/L 1.12-1.27 L code = 698) PH, BLOOD (BEAKER) (test code = 7.51 1810) BLOOD GAS, [id number] 04:12:14 Test Item Value Reference Range Interpretation [...] (test code = 1819) 21.0 OXYGEN SATURATION, [id number] 04:12:09 Test Item Value Reference Range Interpretation Comments O2 SATURATION (MEASURED) (BEAKER) 57.4 % (test code = 1455) RAD, CHEST, 1 VIEW, NON [id number] 03:17:00while patient is intubated or has chest tubes.Reason for exam:->Status post CV SurgeryShould thisbe performed at the bedside?->Yes [facility] 1945 Sex: MFINAL REPORT RAD, CHEST, 1 VIEW, NON DEPT INDICATION: Status post CV Surgery COMPARISON: Prior day's exam FINDINGS: Portable frontal view of the chest. IMPRESSION: Support Lines: Stable. Lungs and pleura: Unchanged airspace and pleural opacities. No pneumothorax.Heart and mediastinum: Stable contours. Stable surgical changes.Additional findings: None. Signed: Celia Nassar Verified Date/Time: 09/11/2021 03:17:44 Electronically signed by: Emir BARRIOS 09/11/2021 03:17 AMBASIC METABOLIC [id number] 22:33:36 Test Item Value Reference Range Interpretation [...] S NOT APPLICABLE FOR DIALYSIS PATIEN TS. Video Journalist ID - [id number] 22:33:35 Test Item Value Reference Range Interpretation Comments MAGNESIUM (BEAKER) 2.5 mg/dL 1.6-2.6 Specimen slightly (test code = 627) hemolyzed Video Journalist ID - DBPOCT-GLUCOSE [id number] 22:18:05 Test Item Value Reference Range Interpretation Comments POC-GLUCOSE METER 113 mg/dL 70-110 H : [facility] (test code = [facility], 1538) [address]: Video Journalist/Techni bart ID = [id number] for DO ERASMO BIRCH HEMOGLOBIN AND [id number] 22:16:52 Test Item Value Reference Range Interpretation Comments HEMOGLOBIN (BEAKER) (test code = 8.3 GM/DL 13.7-17.5 L 410) HEMATOCRIT (BEAKER) (test code = 25.3 % 40.1-51.0 L 411) Video Journalist ID - 6000POCT-GLUCOSE [id number] 17:01:08 Test Item Value Reference Range Interpretation Comments POC-GLUCOSE METER 116 mg/dL 70-110 H : TESTED A T [facility] 6720 (BEAKER) (test code = [facility] [place], 1538) [address]: Video Journalist/Techni bart ID = [id number] for GERRI KEE SERAFIN 2D Echo W/Doppler(CW/PW/Color)2021-09-10 16:05:16Ejection FractionSLEH ECHO [facility](CW/PW/Color)2021-09-10 16:05:16Ejection FractionSLEH [facility]CHO [facility]/Doppler(CW/PW/Color) 2021-09-10 16:05:16Ejection FractionSLEH ECHO [facility]ARTLAB [facility] HospitalOXY[facility] SATURATION, [id number] 15:40:36 Test Item Value Reference Range Interpretation Comments O2 SATURATION (MEASURED) (BEAKER) 79.1 % (test code = 1455) [id number] 13:24:14 Test Item Value Reference Range Interpretation Comments MAGNESIUM (BEAKER) (test code = 2.2 mg/dL 1.6-2.6 627) Video Journalist ID - PIAYA LBASIC METABOLIC [id number] 13:24:13 Test Item Value Reference Range Interpretation [...] S NOT APPLICABLE FOR DIALYSIS PATIEN TS. Video Journalist ID - KAYLEEN LCALCIUM, [id number] 13:05:15 Test Item Value Reference Range Interpretation Comments CALCIUM IONIZED (BEAKER) (test 1.06 mmol/L 1.12-1.27 L code = 698) PH, BLOOD (BEAKER) (test code = 7.52 1810) POCT-GLUCOSE [id number] 11:27:00 Test Item Value Reference Range Interpretation Comments POC-GLUCOSE METER 138 mg/dL 70-110 H : TESTED A T [facility] 6720 (BEAKER) (test code = [facility] [employer] [facility], 1538) 109[address]: Video Journalist/Techni bart ID = [id number] for SERAFIN ATWOOD POCT-GLUCOSE [id number] 07:54:29 Test Item Value Reference Range Interpretation Comments POC-GLUCOSE METER 133 mg/dL 70-110 H : TESTED A T [facility] 6720 (BEAKER) (test code = [employer] [place], 1538) [address]: Video Journalist/Techni bart ID = [id number] for SERAFIN ATWOOD HEPATIC FUNCTION [id number] 05:39:39 Test Item Value Reference Range Interpretation [...] (test code = 44 U/L 6-55 347) Video Journalist ID - KAYLEEN [id number] 05:39:38 Test Item Value Reference Range Interpretation Comments PHOSPHORUS (BEAKER) (test code = 2.9 mg/dL 2.3-4.7 604) Video Journalist ID - KAYLEEN LBASIC METABOLIC [id number] 05:39:37 Test Item Value Reference Range Interpretation [...] S NOT APPLICABLE FOR DIALYSIS PATIEN TS. Video Journalist ID - PIMARIELA [id number] 05:39:37 Test Item Value Reference Range Interpretation Comments MAGNESIUM (BEAKER) (test code = 2.2 mg/dL 1.6-2.6 627) Video Journalist ID - KAYLEEN LLACTIC ACID, [id number] 05:27:27 Test Item Value Reference Range Interpretation Comments LACTATE BLOOD 0.9 mmol/L 0.5-2.2 Specimen sligh tly ARTERIAL (2) (BEAKER) hemoly zed (test code = 2874) Video Journalist ID - KAYLEEN [id number] 05:14:24 Test Item Value Reference Range Interpretation [...] for patients with mechanical heart valves.OXYGEN SATURATION, [id number] 05:07:37 Test Item Value Reference Range Interpretation Comments O2 SATURATION (MEASURED) (BEAKER) 77.5 % (test code = 1455) CBC W/PLT COUNT & AUTO [id number] 05:07:13 Test Item Value Reference Range Interpretation [...] = 2801) RAD, CHEST, 1 VIEW, NON [id number] 05:07:00while patient is intubated or has chest tubes.Reason for exam:->Status post CV SurgeryShould thisbe performed at the bedside?->Yes [facility] 1945 Sex: MFINAL REPORT RAD, CHEST, 1 VIEW, NON DEPT INDICATION: Status post CV Surgery COMPARISON: Prior day's exam FINDINGS: Portable frontal view of the chest. IMPRESSION: Support Lines: Stable. Lungs and pleura: Unchanged bibasilar airspace and pleural opacities. No pneumothorax. Heart and mediastinum: Stable contours. Additional findings: None. Signed: Halley Osullivan Verified Date /Time: 09/10/2021 05:07:16 CALCIUM, [id number] 05:03:15 Test Item Value Reference Range Interpretation Comments CALCIUM IONIZED (BEAKER) (test 1.08 mmol/L 1.12-1.27 L code = 698) PH, BLOOD (BEAKER) (test code = 7.51 1810) BLOOD GAS, [id number] 05:00:52 Test Item Value Reference Range Interpretation [...] (BEAKER) (test code = 1819) 21.0 POCT-GLUCOSE [id number] 22:18:19 Test Item Value Reference Range Interpretation Comments POC-GLUCOSE METER 157 mg/dL 70-110 H : TESTED A T [facility] 6720 (BEAKER) (test code = [place], 1538) [address]: Video Journalist/Techni bart ID = [id number] for VISHAL GAINES CALCIUM, [id number] 20:12:13 Test Item Value Reference Range Interpretation Comments CALCIUM IONIZED (BEAKER) (test 1.11 mmol/L 1.12-1.27 L code = 698) PH, BLOOD (BEAKER) (test code = 7.47 1810) OXYGEN SATURATION, [id number] 20:12:01 Test Item Value Reference Range Interpretation Comments O2 SATURATION (MEASURED) (BEAKER) 78.0 % (test code = 1455) LACTIC ACID, [id number] 20:12:01 Test Item Value Reference Range Interpretation Comments LACTATE BLOOD 1.4 mmol/L 0.5-2.2 Specimen sligh tly ARTERIAL (2) (BEAKER) hemoly zed (test code = 2874) Video Journalist ID - [id number] 20:09:04 Test Item Value Reference Range Interpretation Comments PHOSPHORUS (BEAKER) 2.7 mg/dL 2.3-4.7 Specimen slightly (test code = 604) hemolyzed Video Journalist ID - DBBASIC METABOLIC [id number] 20:09:04 Test Item Value Reference Range Interpretation [...] S NOT APPLICABLE FOR DIALYSIS PATIEN TS. Video Journalist ID - [id number] 20:09:03 Test Item Value Reference Range Interpretation Comments MAGNESIUM (BEAKER) 2.1 mg/dL 1.6-2.6 Specimen slightly (test code = 627) hemolyzed Video Journalist ID - DBHEMOGLOBIN AND [id number] 19:51:19 Test Item Value Reference Range Interpretation Comments HEMOGLOBIN (BEAKER) (test code = 8.3 GM/DL 13.7-17.5 L 410) HEMATOCRIT (BEAKER) (test code = 25.6 % 40.1-51.0 L 411) Video Journalist ID - [id number] SATURATION, [id number] 09:51:00 Test Item Value Reference Range Interpretation Comments O2 SATURATION (MEASURED) (BEAKER) 67.0 % (test code = 1455) RAD, CHEST, 1 VIEW, NON [id number] 06:36:00while patient is intubated or has chest tubes.Reason for exam:->Status post CV SurgeryShould thisbe performed at the bedside?->Yes [facility] : 1945 Sex: MFINAL REPORT RAD, CHEST, 1 VIEW, NON DEPT INDICATION: Status post CV Surgery COMPARISON: Prior day's exam FINDINGS: Portable frontal view of the chest. IMPRESSION: Support Lines: Right chest tube. [place] tip overlies the pulmonary outflow tract. Lungs and pleura: Retrocardiac opacity representing singly or in combination airspace disease, atelectasis and/or effusion. Bibasilar interstitial thickening is unchanged. No significant pneumothorax. Heart and mediastinum: Stable contours. Stable surgical changes. Additional findings: None. Signed: Griselda Cordero MDReport Verified Date/Time: 09/09/2021 06:36:02 OXYGEN SATURATION, [id number] 05:12:23 Test Item Value Reference Range Interpretation Comments O2 SATURATION (MEASURED) (BEAKER) 98.5 % (test code = 1455) [id number] 03:20:36 Test Item Value Reference Range Interpretation Comments PHOSPHORUS (BEAKER) (test code = 2.6 mg/dL 2.3-4.7 604) Video Journalist ID - MARZENA [id number] 03:20:35 Test Item Value Reference Range Interpretation Comments MAGNESIUM (BEAKER) (test code = 2.1 mg/dL 1.6-2.6 627) Video Journalist ID - MARZENA MCOMPREHENSIVE METABOLIC [id number] 03:20:34 Test Item Value Reference Range Interpretation [...] S NOT APPLICABLE FOR DIALYSIS PATIEN TS. Video Journalist ID - MARZENA MPOCT-GLUCOSE [id number] 03:04:55 Test Item Value Reference Range Interpretation Comments POC-GLUCOSE METER 143 mg/dL 70-110 H : TESTED A T [facility] 6720 (BEAKER) (test code = [place], 1538) [address]: Video Journalist/Techni bart ID = [id number] for Cathleen Acuña BLOOD GAS, [id number] 02:57:44 Test Item Value Reference Range Interpretation [...] See_Comment H [A utomated message] The system Georgina Goodman generated this result transmitted ref erence range: 3.5 - 10 .5 K/L. The refe rence range was not u sed to interpret this result as normal/abnor mal. RBC (test code = 789-8) 3.05 See_Comment L [Au tomated message] The system Georgina Goodman generated this result transmitted ref erence range: 4.63 - 6 .08 M/L. The refe rence range was not u sed to interpret this result as normal/abnor mal. MCHC (test code = 786-4) 31.7 See_Comment L [A utomated message] The system Georgina Goodman generated this result transmitted ref erence range: [...] code = 150 See_Comment [Aut omated message] 007-3) The system Georgina Goodman generated this result transmitted ref erence range: 150 - 45 0 K/CU MM. The referen ce range was not u sed to interpret this result as normal/abnor mal. MPV (test code = 10.7 fL 9.4-12.4 35457-4) nRBC (test code = 413) 0 See_Comment [Aut omated message] The system [employer] generated this result transmitted ref erence range: 0 - 0 /1 00 WBC. The refere nce range was not u sed to interpret this result as normal/abnor mal. Lab Interpretation (test Abnormal code = 95235-7) [facility] (Hemogram only)2021-09-09 02:57:29 Test Item Value Reference Range Interpretation Comments WBC (test code = 6690-2) 14.5 See_Comment H [A utomated message] The system Georgina Goodman generated this result transmitted ref erence range: 3.5 - 10 .5 K/L. The refe rence range was not u sed to interpret this result as normal/abnor mal. RBC (test code = 789-8) 3.05 See_Comment L [Au tomated message] The system Georgina Goodman generated this result transmitted ref erence range: 4.63 - 6 .08 M/L. The refe rence range was not u sed to interpret this result as normal/abnor mal. MCHC (test code = 786-4) 31.7 See_Comment L [A utomated message] The system Georgina Goodman generated this result transmitted ref erence range: [...] code = 150 See_Comment [Aut omated message] 617-3) The system Georgina Goodman generated this result transmitted ref erence range: 150 - 45 0 K/CU MM. The referen ce range was not u sed to interpret this result as normal/abnor mal. MPV (test code = 10.7 fL 9.4-12.4 90322-6) nRBC (test code = 413) 0 See_Comment [Aut omated message] The system Georgina Goodman generated this result transmitted ref erence range: 0 - 0 /1 00 WBC. The refere nce range was not u sed to interpret this result as normal/abnor mal. Lab Interpretation (test Abnormal code = 79035-3) [facility] (Hemogram only)2021-09-09 02:57:29 Test Item Value Reference Range Interpretation Comments WBC (test code = 6690-2) 14.5 See_Comment H [A utomated message] The system Georgina Goodman generated this result transmitted ref erence range: 3.5 - 10 .5 K/L. The refe rence range was not u sed to interpret this result as normal/abnor mal. RBC (test code = 789-8) 3.05 See_Comment L [Au tomated message] The system Georgina Goodman generated this result transmitted ref erence range: 4.63 - 6 .08 M/L. The refe rence range was not u sed to interpret this result as normal/abnor mal. MCHC (test code = 786-4) 31.7 See_Comment L [A utomated message] The system Georgina Goodman generated this result transmitted ref erence range: [...] See_Comment [Aut omated message] 777-3) The system Georgina Goodman generated this result transmitted ref erence range: 150 - 45 0 K/CU MM. The referen ce range was not u sed to interpret this result as normal/abnor mal. MPV (test code = 10.7 fL 9.4-12.4 87523-0) nRBC (test code = 413) 0 See_Comment [Aut omated message] The system [employer] generated this result transmitted ref erence range: 0 - 0 /1 00 WBC. The refere nce range was not u sed to interpret this result as normal/abnor mal. Lab Interpretation (test Abnormal code = 21476-6) [facility] (HEMOGRAM ONLY)2021-09-09 02:57:29 Test Item Value [...] 0-0 (BEAKER) (test code = 413) CALCIUM, [id number] 02:57:28 Test Item Value Reference Range Interpretation Comments CALCIUM IONIZED (BEAKER) (test 1.12 mmol/L 1.12-1.27 code = 698) PH, BLOOD (BEAKER) (test code = 7.46 1810) POCT-GLUCOSE [id number] 21:16:02 Test Item Value Reference Range Interpretation Comments POC-GLUCOSE METER 169 mg/dL 70-110 H : TESTED A T [facility] 6720 (BEAKER) (test code = [facility], 1538) [address]: Video Journalist/Techni bart ID = [id number] for Am rodrigo, Walker POCT-GLUCOSE [id number] 21:12:37 Test Item Value Reference Range Interpretation Comments POC-GLUCOSE METER 140 mg/dL 70-110 H : TESTED A T [facility] 6720 (BEAKER) (test code [facility], = 1538) 75[address]: Video Journalist/Techni bart ID = [id number] for SEAN REED (contract) NICHELLE ROGELIOSAMANTHA 2D Echo W/Doppler(CW/PW/Color)2021-09-08 15:37:08Ejection FractionSLEH ECHO [facility]/PW/Color)2021-09-08 15:37:08Ejection FractionSLEH ECHO [facility]/Doppler(CW/PW/Color) 2021-09-08 15:37:08Ejection FractionSLEH ECHO [facility]LAB [facility]2022-[facility]-21 15:32:47 Test Item Value Reference Range Interpretation Comments POTASSIUM (BEAKER) 4.3 meq/L 3.5-5.1 Specimen slightly (test code = 379) hemolyzed Video Journalist ID - KAYLEEN [id number] 15:32:46 Test Item Value Reference Range Interpretation Comments MAGNESIUM (BEAKER) 2.0 mg/dL 1.6-2.6 Specimen slightly (test code = 627) hemolyzed Video Journalist ID - KAYLEEN LCBC W/PLT COUNT & AUTO [id number] 15:19:56 Test Item Value Reference Range Interpretation [...] PERCENT (BEAKER) (test code = 2801) CALCIUM, [id number] 15:12:46 Test Item Value Reference Range Interpretation Comments CALCIUM IONIZED (BEAKER) (test 1.11 mmol/L 1.12-1.27 L code = 698) PH, BLOOD (BEAKER) (test code = 7.48 1810) POCT-GLUCOSE [id number] 14:49:24 Test Item Value Reference Range Interpretation Comments POC-GLUCOSE METER 102 mg/dL 70-110 : TESTED A T [facility] 6720 (BEAKER) (test code [facility], = 1538) 14[address]: Video Journalist/Techni bart ID = [id number] for SEAN REED (contract), NICHELLE OSLAVA POCT-GLUCOSE [id number] 10:32:59 Test Item Value Reference Range Interpretation Comments POC-GLUCOSE METER 104 mg/dL 70-110 : TESTED A T [facility] 6720 (BEAKER) (test code [facility], = 1538) 37039: Video Journalist/Techni bart ID = [id number] for SEAN REED (contract), NICHELLE OSLAVA HEMOGLOBIN AND [id number] 10:32:38 Test Item Value Reference Range Interpretation Comments HEMOGLOBIN (BEAKER) (test code = 7.7 GM/DL 13.7-17.5 L 410) HEMATOCRIT (BEAKER) (test code = 25.3 % 40.1-51.0 L 411) Video Journalist ID - 6000POCT-GLUCOSE [id number] 09:26:31 Test Item Value Reference Range Interpretation Comments POC-GLUCOSE METER 96 mg/dL 70-110 : TESTED A T [facility] 6720 (BEAKER) (test code = [facility], 1538) [address]: Video Journalist/Techni bart ID = [id number] for SEAN REED (contract), NICHELLE OSLAVA LACTIC ACID, [id number] 09:18:52 Test Item Value Reference Range Interpretation Comments LACTATE BLOOD ARTERIAL (2) 1.7 mmol/L 0.5-2.2 (BEAKER) (test code = 2874) Video Journalist ID - DBOXYGEN SATURATION, [id number] 09:17:35 Test Item Value Reference Range Interpretation Comments O2 SATURATION (MEASURED) (BEAKER) 60.3 % (test code = 1455) POCT-GLUCOSE [id number] 09:09:11 Test Item Value Reference Range Interpretation Comments POC-GLUCOSE METER 101 mg/dL 70-110 : TESTED A T [facility] 6720 (BEAKER) (test code [facility], = 1538) 455[address]: Video Journalist/Techni bart ID = [id number] for SEAN REED (contract)NICHELLE BLOOD GAS, [id number] 09:08:49 Test Item Value Reference Range Interpretation [...] = No growth in 5 days 6463-4) [facility]21-[facility]-08 08:00:53 Test Item Value Reference Range Interpretation Comments Result (test code = No growth in 5 days 6463-4) [facility] Culture - Routine (Left Venipuncture)2021-09-08 08:00:53 Test Item Value Reference Range Interpretation Comments Result (test code = No growth in 5 days 6463-4) [facility] [id number] 08:00:53 Test Item Value Reference Range Interpretation Comments CULTURE (BEAKER) (test No growth in 5 days code = 1095) BLOOD [id number] 08:00:52 Test Item Value Reference Range Interpretation Comments CULTURE (BEAKER) (test No growth in 5 days code = 1095) [id number] 07:57:26 Test Item Value Reference Range Interpretation Comments Scan Result (test code = See scanned report [id number]) EMERSON (test code = EMERSON) See scanned report [facility] 07:57:26 Test Item Value Reference Range Interpretation Comments Scan Result (test code = See scanned report [id number]) EMERSON (test code = EMERSON) See scanned report [facility] 07:57:26 Test Item Value Reference Range Interpretation Comments Scan Result (test code = See scanned report [id number]) EMERSON (test code = EMERSON) See scanned report [facility] [id number] 07:57:26 Test Item Value Reference Range Interpretation Comments SCAN RESULT (test code = See scanned report [id number]) See scanned reportLACTIC ACID, [id number] 06:32:27 Test Item Value Reference Range Interpretation Comments LACTATE BLOOD ARTERIAL (2) 3.0 mmol/L 0.5-2.2 H (BEAKER) (test code = 2874) Video Journalist ID - PIAYA LPOC ACTIVATED CLOTTING [id number] 06:31:19 Test Item Value Reference Range Interpretation Comments Activated Clotting Time 142 sec : 74 -137 seconds, (test code = 441) Baseline: TESTED AT [address], [address]: Video Journalist/Techni bart ID = [id number] for Sa enz, Angela [facility] ACTIVATED CLOTTING [id number] 06:31:19 Test Item Value Reference Range Interpretation Comments Activated Clotting Time 142 sec : 74 -137 seconds, (test code = 3184-9) Baselin e: TESTED AT [place] [id number] [facility], [address]: Video Journalist/Techni bart ID = [id number] for Sa enz, Angela [facility] ACTIVATED CLOTTING [id number] 06:31:19 Test Item Value Reference Range Interpretation Comments Activated Clotting Time 142 sec : 74 -137 seconds, (test code = 3184-9) Baselin e: TESTED AT [place] [id number] [facility], [address]: Video Journalist/Techni bart ID = [id number] for Sa enz, Angela [facility] CenterPOCT-[id number] 06:31:19 Test Item Value Reference Range Interpretation Comments ACTIVATED CLOTTING TIME 142 sec : 74 -137 seconds, (BEAKER) (test code = Baseli ne: TESTED AT [facility]) [address], [address]: Video Journalist/Techni bart ID = [id number] for Sa enz, Agnela [id number] 06:31:17 Test Item Value Reference Range Interpretation Comments ACTIVATED CLOTTING TIME 785 sec : 74 -137 seconds, (BEAKER) (test code = Baseli ne: TESTED AT 441) [address], [address]: Video Journalist/Techni bart ID = [id number] for Sa enz, Angela [id number]-[id number] 06:31:17 Test Item Value Reference Range Interpretation Comments ACTIVATED CLOTTING TIME 964 sec : 74 -137 seconds, (BEAKER) (test code = Baseli ne: TESTED AT 441) [address], [facility] 30: Video Journalist/Techni bart ID = [id number] for Sa enz, Angela [id number] 06:31:16 Test Item Value Reference Range Interpretation Comments ACTIVATED CLOTTING TIME > sec : 74 -137 seconds, (BEAKER) (test code = Baseli ne: TESTED AT 441) [address], [address]: Video Journalist/Techni bart ID = [id number] for Sa enz, Angela [id number] 06:31:15 Test Item Value Reference Range Interpretation Comments ACTIVATED CLOTTING TIME > sec : 74 -137 seconds, (BEAKER) (test code = Baseli ne: TESTED AT 441) [address], [address]: Video Journalist/Techni bart ID = [id number] for Sa enz, Angela VEAZ-[id number] 06:31:14 Test Item Value Reference Range Interpretation Comments ACTIVATED CLOTTING TIME 708 sec : 74 -137 seconds, (BEAKER) (test code = Baseli ne: TESTED AT 441) [address], [facility] 30: Video Journalist/Techni bart ID = [id number] for Sa enz, Angela [id number]-[id number] 06:31:13 Test Item Value Reference Range Interpretation Comments ACTIVATED CLOTTING TIME 154 sec : 74 -137 seconds, (BEAKER) (test code = Baseli ne: TESTED AT 441) [address], [facility] 30: Video Journalist/Techni bart ID = [id number] for Sa enz, Angela POCT-GLUCOSE [id number] 06:26:19 Test Item Value Reference Range Interpretation Comments POC-GLUCOSE METER 117 mg/dL 70-110 H : TESTED Rut Goncalves [facility] 6720 (BEAKER) (test code = [place], 1538) [address]: Video Journalist/Techni bart ID = [id number] for Jane Payne HGB/HCT (H&H)-Stat [id number] 06:21:12 Test Item Value Reference Range Interpretation Comments Hemoglobin (test code = 8.3 See_Comment L [Au tomated message] 786-4) The system Georgina Goodman generated this result transmitted ref erence range: 13.0 - 1 6.8 GM/DL. The refe rence range was not u sed to interpret this result as normal/abnor mal. Hematocrit (test code = 24.0 % 40.0-50.0 L 4544-3) Lab Interpretation (test Abnormal code = 50361-0) [facility] [id number] 06:21:12 Test Item Value Reference Range Interpretation Comments Glucose (test code = 2345-7) 123 mg/dL 70-110 H Lab Interpretation (test code = Abnormal 05333-3) [facility] [id number] 06:21:12 Test Item Value Reference Range Interpretation Comments Hemoglobin (test code = 8.3 See_Comment L [Au tomated message] 786-4) The system Georgina Goodman generated this result transmitted ref erence range: 13.0 - 1 6.8 GM/DL. The refe rence range was not u sed to interpret this result as normal/abnor mal. Hematocrit (test code = 24.0 % 40.0-50.0 L 4544-3) Lab Interpretation (test Abnormal code = 69327-8) [facility] [id number] 06:21:12 Test Item Value Reference Range Interpretation Comments Glucose (test code = 2345-7) 123 mg/dL 70-110 H Lab Interpretation (test code = Abnormal 82900-3) [facility] [id number] 06:21:12 Test Item Value Reference Range Interpretation Comments Hemoglobin (test code = 8.3 See_Comment L [Au tomated message] 786-4) The system Georgina Goodman generated this result transmitted ref erence range: 13.0 - 1 6.8 GM/DL. The refe rence range was not u sed to interpret this result as normal/abnor mal. Hematocrit (test code = 24.0 % 40.0-50.0 L 4544-3) Lab Interpretation (test Abnormal code = 54446-0) [facility] [id number] 06:21:12 Test Item Value Reference Range Interpretation Comments Glucose (test code = 2345-7) 123 mg/dL 70-110 H Lab Interpretation (test code = Abnormal 59613-9) [facility] [id number] 06:21:12 Test Item Value Reference Range Interpretation Comments GLUCOSE RANDOM (BEAKER) (test code 123 mg/dL 70-110 H = 652) HGB/HCT (H&H) - STAT [id number] 06:21:12 Test Item Value Reference Range Interpretation Comments HEMOGLOBIN (BEAKER) (test code = 8.3 GM/DL 13.0-16.8 L 410) HEMATOCRIT (BEAKER) (test code = 24.0 % 40.0-50.0 L 411) BLOOD GAS, [id number] 06:21:11 Test Item Value Reference Range Interpretation [...] (BEAKER) (test code = 1819) 40.0 Potassium-Stat [id number] 06:19:05 Test Item Value Reference Range Interpretation Comments Potassium (test code = 2823-3) 4.1 meq/L 3.6-5.5 Lab Interpretation (test code = Normal 21445-5) [facility] [id number] 06:19:05 Test Item Value Reference Range Interpretation Comments Potassium (test code = 2823-3) 4.1 meq/L 3.6-5.5 Lab Interpretation (test code = Normal 85680-6) [facility] [id number] 06:19:05 Test Item Value Reference Range Interpretation Comments Potassium (test code = 2823-3) 4.1 meq/L 3.6-5.5 Lab Interpretation (test code = Normal 51949-0) [facility]OT[facility]UM-[facility] [id number] 06:19:05 Test Item Value Reference Range Interpretation Comments POTASSIUM (BEAKER) (test code = 4.1 meq/L 3.6-5.5 379) Sodium Na-Stat [id number] 06:19:04 Test Item Value Reference Range Interpretation Comments Sodium (test code = 2951-2) 140 meq/L 136-145 Lab Interpretation (test code = Normal 25590-8) [facility] [id number] 06:19:04 Test Item Value Reference Range Interpretation Comments Sodium (test code = 2951-2) 140 meq/L 136-145 Lab Interpretation (test code = Normal 39736-5) [facility] [id number] 06:19:04 Test Item Value Reference Range Interpretation Comments Sodium (test code = 2951-2) 140 meq/L 136-145 Lab Interpretation (test code = Normal 95827-1) [facility] [id number] 06:19:04 Test Item Value Reference Range Interpretation Comments SODIUM (BEAKER) (test code = 381) 140 meq/L 136-145 POCT-GLUCOSE [id number] 06:03:00 Test Item Value Reference Range Interpretation Comments POC-GLUCOSE METER 117 mg/dL 70-110 H : TESTED A T [facility] 6720 (BEAKER) (test code = [place], 1538) [address]: Video Journalist/Techni bart ID = [id number] for Jane Payne POCT-GLUCOSE [id number] 04:27:30 Test Item Value Reference Range Interpretation Comments POC-GLUCOSE METER 131 mg/dL 70-110 H : TESTED A T [facility] 6720 (BEAKER) (test code = [place] [facility], 1538) [address]: Video Journalist/Techni bart ID = [id number] for Jane Payne HGB/HCT (H&H) - STAT [id number] 04:22:31 Test Item Value Reference Range Interpretation Comments HEMOGLOBIN (BEAKER) (test code = 8.5 GM/DL 13.0-16.8 L 410) HEMATOCRIT (BEAKER) (test code = 25.0 % 40.0-50.0 L 411) BLOOD GAS, [id number] 04:22:30 Test Item Value Reference Range Interpretation [...] (BEAKER) (test code = 1819) 40.0 GLUCOSE-STAT [id number] 04:22:30 Test Item Value Reference Range Interpretation Comments GLUCOSE RANDOM (BEAKER) (test code 145 mg/dL 70-110 H = 652) OXYGEN SATURATION, [id number] 04:22:06 Test Item Value Reference Range Interpretation Comments O2 SATURATION (MEASURED) (BEAKER) 70.0 % (test code = 1455) SODIUM NA-STAT [id number] 04:21:07 Test Item Value Reference Range Interpretation Comments SODIUM (BEAKER) (test code = 381) 138 meq/L 136-145 POTASSIUM-STAT [id number] 04:21:07 Test Item Value Reference Range Interpretation Comments POTASSIUM (BEAKER) (test code = 4.0 meq/L 3.6-5.5 379) RAD, CHEST, 1 VIEW, NON [id number] 04:06:00while patient is intubated or has chest tubes.Reason for exam:->Status post CV SurgeryShould thisbe performed at the bedside?->Yes [facility] 1945 Sex: MFINAL REPORT RAD, CHEST, 1 VIEW, NON DEPT INDICATION: Status post CV Surgery COMPARISON: Prior day's exam FINDINGS: Portable frontal view of the chest. IMPRESSION: Support Lines: Slight repositioning of the right IJ [place] catheter tip overlying the main pulmonary artery. Lungs and pleura: Unchanged airspace and pleural opacities. No pneumothorax.Heart and mediastinum: Stable co ntours. Stable surgical changes.Additional findings: None. Signed: Celia Nassar Verified Date/Time: 09/08/2021 04:06:10 LACTIC ACID, ARTERIAL 2021-09-08 03:28:09 Test Item Value Reference Range Interpretation Comments LACTATE BLOOD ARTERIAL (2) 4.4 mmol/L 0.5-2.2 HH (BEAKER) (test code = 2874) Video Journalist ID - DBPOCT-GLUCOSE [id number] 03:20:20 Test Item Value Reference Range Interpretation Comments POC-GLUCOSE METER 127 mg/dL 70-110 H : TESTED A T [facility] 6720 (BEAKER) (test code = [place], 1538) [address]: Video Journalist/Techni bart ID = [id number] for Jane Payne CBC W/PLT COUNT & AUTO [id number] 03:14:20 Test Item Value Reference Range Interpretation [...] 0-1 PERCENT (BEAKER) (test code = 2801) [id number] 03:02:27 Test Item Value Reference Range Interpretation Comments PHOSPHORUS (BEAKER) (test code = 2.5 mg/dL 2.3-4.7 604) Video Journalist ID - SLCWRABYZTG4005-50-24 03:02:26 Test Item Value Reference Range Interpretation Comments MAGNESIUM (BEAKER) (test code = 2.3 mg/dL 1.6-2.6 627) Video Journalist ID - DBCOMPREHENSIVE METABOLIC [id number] 03:02:25 Test Item Value Reference Range Interpretation [...] S NOT APPLICABLE FOR DIALYSIS PATIEN TS. Video Journalist ID - DBCALCIUM, [id number] 02:42:47 Test Item Value Reference Range Interpretation Comments CALCIUM IONIZED (BEAKER) (test 1.09 mmol/L 1.12-1.27 L code = 698) PH, BLOOD (BEAKER) (test code = 7.51 1810) GLUCOSE-STAT [id number] 02:42:45 Test Item Value Reference Range Interpretation Comments GLUCOSE RANDOM (BEAKER) (test code 162 mg/dL 70-110 H = 652) HGB/HCT (H&H) - STAT [id number] 02:42:45 Test Item Value Reference Range Interpretation Comments HEMOGLOBIN (BEAKER) (test code = 8.3 GM/DL 13.0-16.8 L 410) HEMATOCRIT (BEAKER) (test code = 24.0 % 40.0-50.0 L 411) BLOOD GAS, [id number] 02:42:44 Test Item Value Reference Range Interpretation [...] (test code = 1819) 40.0 SODIUM NA-STAT [id number] 02:39:19 Test Item Value Reference Range Interpretation Comments SODIUM (BEAKER) (test code = 381) 138 meq/L 136-145 POTASSIUM-STAT [id number] 02:39:19 Test Item Value Reference Range Interpretation Comments POTASSIUM (BEAKER) (test code = 3.8 meq/L 3.6-5.5 379) POCT-GLUCOSE [id number] 02:22:45 Test Item Value Reference Range Interpretation Comments POC-GLUCOSE METER 148 mg/dL 70-110 H : TESTED A T [facility] 6720 (BEAKER) (test code = [facility], 1538) [address]: Video Journalist/Techni bart ID = [id number] for Jane Payne OXYGEN SATURATION, [id number] 01:24:13 Test Item Value Reference Range Interpretation Comments O2 SATURATION (MEASURED) (BEAKER) 71.6 % (test code = 1455) POCT-GLUCOSE [id number] 01:14:53 Test Item Value Reference Range Interpretation Comments POC-GLUCOSE METER 159 mg/dL 70-110 H : TESTED A T [facility] 6720 (BEAKER) (test code = [facility], 1538) [address]: Video Journalist/Techni bart ID = [id number] for Jane Payne POCT-GLUCOSE [id number] 00:12:10 Test Item Value Reference Range Interpretation Comments POC-GLUCOSE METER 170 mg/dL 70-110 H : TESTED A T [facility] 6720 (BEAKER) (test code = [facility], 1538) [address]: Video Journalist/Techni bart ID = [id number] for Jane Payne HGB/HCT (H&H) - STAT [id number] 00:01:07 Test Item Value Reference Range Interpretation Comments HEMOGLOBIN (BEAKER) (test code = 8.6 GM/DL 13.0-16.8 L 410) HEMATOCRIT (BEAKER) (test code = 25.0 % 40.0-50.0 L 411) BLOOD GAS, [id number] 00:01:06 Test Item Value Reference Range Interpretation [...] (BEAKER) (test code = 1819) 40.0 GLUCOSE-STAT [id number] 00:01:06 Test Item Value Reference Range Interpretation Comments GLUCOSE RANDOM (BEAKER) (test code 185 mg/dL 70-110 H = 652) POTASSIUM-STAT [id number] 00:00:02 Test Item Value Reference Range Interpretation Comments POTASSIUM (BEAKER) (test code = 4.0 meq/L 3.6-5.5 379) SODIUM NA-STAT [id number] 00:00:01 Test Item Value Reference Range Interpretation Comments SODIUM (BEAKER) (test code = 381) 138 meq/L 136-145 POCT-GLUCOSE [id number] 23:16:14 Test Item Value Reference Range Interpretation Comments POC-GLUCOSE METER 169 mg/dL 70-110 H : [facility] T [facility] 6720 [facility] (test code = [facility], 153) [address]: Video Journalist/Techni bart ID = [id number] for La nate, Jane POCT-GLUCOSE [id number] 22:48:00 Test Item Value Reference Range Interpretation Comments POC-GLUCOSE METER 186 mg/dL 70-110 H : TESTED A T [facility] 6720 (BEAKER) (test code = [facility], 1538) [address]: Video Journalist/Techni bart ID = [id number] for La nate, Jane LACTIC ACID, [id number] 22:32:03 Test Item Value Reference Range Interpretation Comments LACTATE BLOOD ARTERIAL (2) 7.7 mmol/L 0.5-2.2 HH (BEAKER) (test code = 2874) Video Journalist ID - DBSpecimen slightly [id number] 22:20:51 Test Item Value Reference Range Interpretation Comments PARTIAL THROMBOPLASTIN TIME 50.9 seconds 22.5-36.0 H (BEAKER) (test code = 760) POCT-GLUCOSE [id number] 22:10:53 Test Item Value Reference Range Interpretation Comments POC-GLUCOSE METER 203 mg/dL 70-110 H : TESTED Rut T [facility] 6720 (BEAKER) (test code = [place], 1538) [address]: Video Journalist/Techni bart ID = [id number] for Jane Payne HGB/HCT (H&H) - STAT [id number] 22:10:05 Test Item Value Reference Range Interpretation Comments HEMOGLOBIN (BEAKER) (test code = 8.4 GM/DL 13.0-16.8 L 410) HEMATOCRIT (BEAKER) (test code = 25.0 % 40.0-50.0 L 411) GLUCOSE-STAT [id number] 22:10:04 Test Item Value Reference Range Interpretation Comments GLUCOSE RANDOM (BEAKER) (test code 203 mg/dL 70-110 H = 652) BLOOD GAS, [id number] 22:10:03 Test Item Value Reference Range Interpretation [...] (test code = 1819) 40.0 SODIUM NA-STAT [id number] 22:09:47 Test Item Value Reference Range Interpretation Comments SODIUM (BEAKER) (test code = 381) 140 meq/L 136-145 POTASSIUM-STAT [id number] 22:09:47 Test Item Value Reference Range Interpretation Comments POTASSIUM (BEAKER) (test code = 3.8 meq/L 3.6-5.5 379) BASIC METABOLIC [id number] 21:03:11 Test Item Value Reference Range Interpretation [...] S NOT APPLICABLE FOR DIALYSIS PATIEN TS. Video Journalist ID - MARZENA MHGB/HCT (H&H) - STAT [id number] 20:56:34 Test Item Value Reference Range Interpretation Comments HEMOGLOBIN (BEAKER) (test code = 9.2 GM/DL 13.0-16.8 L 410) HEMATOCRIT (BEAKER) (test code = 27.0 % 40.0-50.0 L 411) GLUCOSE-STAT [id number] 20:56:33 Test Item Value Reference Range Interpretation Comments GLUCOSE RANDOM (BEAKER) (test code 216 mg/dL 70-110 H = 652) BLOOD GAS, [id number] 20:56:32 Test Item Value Reference Range Interpretation [...] (BEAKER) (test code = 1819) 40.0 POTASSIUM-STAT [id number] 20:55:37 Test Item Value Reference Range Interpretation Comments POTASSIUM (BEAKER) (test code = 3.9 meq/L 3.6-5.5 379) SODIUM NA-STAT [id number] 20:55:36 Test Item Value Reference Range Interpretation Comments SODIUM (BEAKER) (test code = 381) 138 meq/L 136-145 LACTIC ACID, [id number] 19:32:31 Test Item Value Reference Range Interpretation Comments LACTATE BLOOD ARTERIAL (2) 9.1 mmol/L 0.5-2.2 HH (BEAKER) (test code = 2874) Video Journalist ID - MARZENA MCBC (HEMOGRAM ONLY)2021-09-07 19:15:57 [...] (BEAKER) (test code = 413) BLOOD GAS, [id number] 19:14:26 Test Item Value Reference Range Interpretation [...] (test code = 1819) 60.0 OXYGEN SATURATION, [id number] 19:14:15 Test Item Value Reference Range Interpretation Comments O2 SATURATION (MEASURED) (BEAKER) 72.3 % (test code = 1455) POCT-GLUCOSE [id number] 18:29:54 Test Item Value Reference Range Interpretation Comments POC-GLUCOSE METER 170 mg/dL 70-110 H : TESTED A T [facility] 6720 (BEAKER) (test code = [place], 1538) [address]: Video Journalist/Techni bart ID = [id number] for SHELLEY REYES CT, CTA, [id number] 17:57:00Unlisted Reason for Exam - Click Yes and Enter Reason Below->YesUnlisted Reason for Exam->Pre op evaluation of aorta, assessment prior to cardiac surgery. need to see distance of aorta from chest wall and calcification of aorta [facility] 1945 Sex: MAddendum [...] MDReport Verified Date/Time: 09/07/2021 17:57:58 Reading Location: [facility] Radiology Reading RoomAddendum EndsFINAL REPORT CTA [...] aorta. There is no acute aortic pathology. Imaging Manager dimensions of the thoracic aorta are as [...] size of the lesion. Signed: Bhargav Humphreys [facility] Verified Date/Time: 0:03:27 CT, CTA [id number] 17:57:00Unlisted Reason for Exam - Click Yes and Enter Reason Below->YesUnlisted Reason for Exam->Evaluate descending aorta for calcification down to femoral vessels, prior to cannulation of femoral artery and vein for cardiac surgery. [facility] ISREAL : 1945 Sex: MAddendum BeginsREPORT STATUS:A [...] MDReport Verified Date/Time: 09/07/2021 17:57:58 Reading Location: [facility] Radiology Reading RoomAddendum EndsFINAL REPORT CTA [...] aorta. There is no acute aortic pathology. Imaging Manager dimensions of the thoracic aorta are as [...] the size of the lesion. Signed: [facility]av [facility] Verified Date/Time: 0:03:27 LACTIC ACID, [id number] 17:36:22 Test Item Value Reference Range Interpretation Comments LACTATE BLOOD 8.2 mmol/L 0.5-2.2 HH Specimen sligh tly ARTERIAL (2) (BEAKER) hemoly zed (test code = 2874) Video Journalist ID - MARZENA MHGB/HCT (H&H) - STAT [id number] 17:15:52 Test Item Value Reference Range Interpretation Comments HEMOGLOBIN (BEAKER) (test code = 8.7 GM/DL 13.0-16.8 L 410) HEMATOCRIT (BEAKER) (test code = 26.0 % 40.0-50.0 L 411) GLUCOSE-STAT [id number] 17:15:51 Test Item Value Reference Range Interpretation Comments GLUCOSE RANDOM (BEAKER) (test code 179 mg/dL 70-110 H = 652) BLOOD GAS, [id number] 17:15:50 Test Item Value Reference Range Interpretation [...] (BEAKER) (test code = 1819) 40.0 POTASSIUM-STAT [id number] 17:15:06 Test Item Value Reference Range Interpretation Comments POTASSIUM (BEAKER) (test code = 3.6 meq/L 3.6-5.5 379) SODIUM NA-STAT [id number] 17:15:05 Test Item Value Reference Range Interpretation Comments SODIUM (BEAKER) (test code = 381) 138 meq/L 136-145 LACTIC ACID, [id number] 15:47:03 Test Item Value Reference Range Interpretation Comments LACTATE BLOOD 5.7 mmol/L 0.5-2.2 HH Specimen moder ately ARTERIAL (2) (BEAKER) hemoly zed (test code = 2874) Video Journalist ID - MARZENA MBASIC METABOLIC [id number] 15:45:08 Test Item Value Reference Range Interpretation [...] S NOT APPLICABLE FOR DIALYSIS PATIEN TS. Video Journalist ID - MARZENA [id number] 15:45:07 Test Item Value Reference Range Interpretation Comments PHOSPHORUS (BEAKER) 3.1 mg/dL 2.3-4.7 Specimen slightly (test code = 604) hemolyzed Video Journalist ID - MARZENA [id number] 15:45:06 Test Item Value Reference Range Interpretation Comments MAGNESIUM (BEAKER) 2.9 mg/dL 1.6-2.6 H Specimen slightly (test code = 627) hemolyzed Video Journalist ID - MARZENA MCBC W/PLT COUNT & AUTO [id number] 15:40:58 Test Item Value Reference Range Interpretation [...] 0-1 PERCENT (BEAKER) (test code = 2801) [id number] 15:37:40 Test Item Value Reference Range Interpretation [...] is 2.5-3.5 for patients with mechanical heart valves.[id number] 15:37:05 Test Item Value Reference Range Interpretation Comments Fibrinogen (test code = 3255-7) 466 mg/dl 225-434 H Lab Interpretation (test code = Abnormal 53632-1) [facility] 15:37:05 Test Item Value Reference Range Interpretation Comments Fibrinogen (test code = 3255-7) 466 mg/dl 225-434 H Lab Interpretation (test code = Abnormal 82641-5) [facility] 15:37:05 Test Item Value Reference Range Interpretation Comments Fibrinogen (test code = 3255-7) 466 mg/dl 225-434 H Lab Interpretation (test code = Abnormal 50408-4) [facility] 15:37:05 Test Item Value Reference Range Interpretation Comments FIBRINOGEN LEVEL (BEAKER) (test 466 mg/dl 225-434 H code = 658) PROTHROMBIN TIME/[id number] 15:36:48 Test Item Value Reference Range Interpretation Comments PROTIME (BEAKER) 18.7 seconds 11.9-14.2 H (test code = 759) INR (BEAKER) (test 1.58 See_Comment [Automat ed message] code = 370) The system Georgina Goodman generated this result transmitted ref erence range: <=5.90. The reference range was not used to int erpret this result as normal/abnormal . RECOMMENDED COUMADIN/WARFARIN INR THERAPY RANGESSTANDARD DOSE: 2.0 - 3.0 Includes: PROPHYLAXIS for venous thrombosis, systemic embolization; TREATMENT for venous thrombosis and/or pulmonary embolus.HIGH RISK: Target INR is 2.5-3.5 for patients with mechanical heart valves.BLOOD GAS, [id number] 15:31:17 Test Item Value Reference Range Interpretation [...] (test code = 1819) 60.0 OXYGEN SATURATION, [id number] 15:30:38 Test Item Value Reference Range Interpretation Comments O2 SATURATION (MEASURED) (BEAKER) 66.2 % (test code = 1455) RAD, CHEST, 1 VIEW, NON [id number] 15:30:00Reason for exam:->Status post CV Surgery post op day 0Should this be performed at the bedside?->Yes [facility] 1945 Sex: MFINAL REPORT Chest dated 09/07/2021 COMPARISON: September 05, 2021 Clinical Information: Status post CV Surgery post op day 0 Comment: Heart is enlarged. Pulmonary vasculature is indistinct. Airspace disease is seen bilaterally suggestive of pulmonary edema. Endotracheal tube, nasogastric tube, [place]-G[place] catheter, and right chest tube are present. No pneumothorax is seen. Signed: Halley Khan Verified Date/Time: 09/07/2021 15:30:25 Reading Location: [facility] Radiology Reading Room Prepare [id number] 14:47:00 Test Item Value Reference Range Interpretation Comments CROSSMATCH (test code = COMPATIBLE 2264) Unit ABO (test code = A Pos 1351368) UNIT NUMBER (test code = [id number] 934-0) Status (test code = RETURNED FROM ISSUE 4335712) Blood Bank Product (test RED BLOOD CELLS code = 2263) PRODUCT CODE (test code = [id number] 933-2) [facility] [id number] 14:47:00 Test Item Value Reference Range Interpretation Comments Unit ABO (test code = A Pos 5688404) UNIT NUMBER (test code = [id number] 934-0) Status (test code = RETURNED FROM ISSUE 6011658) Blood Bank Product (test FFP code = 2263) PRODUCT CODE (test code = [id number] 933-2) [facility] [id number] 14:47:00 Test Item Value Reference Range Interpretation Comments CROSSMATCH (test code = COMPATIBLE 2264) Unit ABO (test code = A Pos 0435739) UNIT NUMBER (test code = [id number] 934-0) Status (test code = RETURNED FROM ISSUE 3013684) Blood Bank Product (test RED BLOOD CELLS code = 2263) PRODUCT CODE (test code = [id number] 933-2) [facility] [id number] 14:47:00 Test Item Value Reference Range Interpretation Comments Unit ABO (test code = A Pos 1363902) UNIT NUMBER (test code = [id number] 934-0) Status (test code = RETURNED FROM ISSUE 1477101) Blood Bank Product (test FFP code = 2263) PRODUCT CODE (test code = [id number] 933-2) [facility] [id number] 14:47:00 Test Item Value Reference Range Interpretation Comments CROSSMATCH (test code = COMPATIBLE 2264) Unit ABO (test code = A Pos 9558425) UNIT NUMBER (test code = [id number] 934-0) Status (test code = RETURNED FROM ISSUE [id number]) Blood Bank Product (test RED BLOOD CELLS code = 2263) PRODUCT CODE (test code = T1568H69 933-2) [facility] [id number] 14:47:00 Test Item Value Reference Range Interpretation Comments Unit ABO (test code = A Pos 3311017) UNIT NUMBER (test code = [id number] 934-0) Status (test code = RETURNED FROM ISSUE [id number]) Blood Bank Product (test FFP code = 2263) PRODUCT CODE (test code = C1732S47 933-2) [facility] 14:14:33 Test Item Value Reference Range Interpretation Comments PHOSPHORUS (BEAKER) (test code = 3.5 mg/dL 2.3-4.7 604) Video Journalist ID - BSCBC W/PLT COUNT & AUTO [id number] 13:56:03 Test Item Value Reference Range Interpretation [...] 0-1 PERCENT (BEAKER) (test code = 2801) [id number] 13:40:15 Test Item Value Reference Range Interpretation Comments PARTIAL THROMBOPLASTIN TIME 40.7 seconds 22.5-36.0 H (BEAKER) (test code = 760) [id number] 13:40:14 Test Item Value Reference Range Interpretation Comments FIBRINOGEN LEVEL (BEAKER) (test 374 mg/dl 225-434 code = 658) PROTHROMBIN TIME/[id number] 13:40:08 Test Item Value Reference Range Interpretation Comments PROTIME (BEAKER) 21.5 seconds 11.9-14.2 H (test code = 759) INR (BEAKER) (test 1.89 See_Comment [Automat ed message] code = 370) The system Georgina Goodman generated this result transmitted ref erence range: <=5.90. The reference range was not used to int erpret this result as normal/abnormal . RECOMMENDED COUMADIN/WARFARIN INR THERAPY RANGESSTANDARD DOSE: 2.0 - 3.0 Includes: PROPHYLAXIS for venous thrombosis, systemic embolization; TREATMENT for venous thrombosis and/or pulmonary embolus.HIGH RISK: Target INR is 2.5-3.5 for patients with mechanical heart valves.CALCIUM, [id number] 13:38:49 Test Item Value Reference Range Interpretation Comments CALCIUM IONIZED (BEAKER) (test 1.13 mmol/L 1.12-1.27 code = 698) PH, BLOOD (BEAKER) (test code = 7.35 1810) GLUCOSE-STAT [id number] 13:37:55 Test Item Value Reference Range Interpretation Comments GLUCOSE RANDOM (BEAKER) (test code 187 mg/dL 70-110 H = 652) HGB/HCT (H&H) - STAT [id number] 13:37:55 Test Item Value Reference Range Interpretation Comments HEMOGLOBIN (BEAKER) (test code = 8.0 GM/DL 13.0-16.8 L 410) HEMATOCRIT (BEAKER) (test code = 24.0 % 40.0-50.0 L 411) BLOOD GAS, [id number] 13:37:54 Test Item Value Reference Range Interpretation [...] (test code = 1819) 94.0 SODIUM NA-STAT [id number] 13:37:41 Test Item Value Reference Range Interpretation Comments SODIUM (BEAKER) (test code = 381) 135 meq/L 136-145 L POTASSIUM-STAT [id number] 13:37:41 Test Item Value Reference Range Interpretation Comments POTASSIUM (BEAKER) (test code = 3.6 meq/L 3.6-5.5 379) Platelet [id number] 13:30:37 Test Item Value Reference Range Interpretation Comments Platelets (test code 136 See_Comment L [Autom ated = 777-3) message] The system which generated this result transmit dante reference range : 150 - 450 K/CU MM. The reference range was not u sed to interpret th is result as normal/abnormal . EMERSON (test code = EMERSON) Video Journalist ID - [id number] Lab Interpretation Abnormal (test code = 49193-3) [facility] Center[facility]ate[facility] [id number] 13:30:37 Test Item Value Reference Range Interpretation Comments Platelets (test code 136 See_Comment L [Autom ated = 777-3) message] The system which generated this result transmit dante reference range : 150 - 450 K/CU MM. The reference range was not u sed to interpret th is result as normal/abnormal . EMERSON (test code = EMERSON) Video Journalist ID - [id number] Lab Interpretation Abnormal (test code = 16831-2) [facility] Center[facility]atelet [id number] 13:30:37 Test Item Value Reference Range Interpretation Comments Platelets (test code 136 See_Comment L [Autom ated = 777-3) message] The system which generated this result transmit dante reference range : 150 - 450 K/CU MM. The reference range was not u sed to interpret th is result as normal/abnormal . EMERSON (test code = EEMRSON) Video Journalist ID - [id number] Lab Interpretation Abnormal (test code = 21184-2) [facility] CenterPLATELET [id number] 13:30:37 Test Item Value Reference Range Interpretation Comments PLATELET COUNT (BEAKER) (test 136 K/CU MM 150-450 L code = 756) Video Journalist ID - [id number], [id number] 13:24:01 Test Item Value Reference Range Interpretation Comments CALCIUM IONIZED (BEAKER) (test 1.23 mmol/L 1.12-1.27 code = 698) PH, BLOOD (BEAKER) (test code = 7.35 1810) HGB/HCT (H&H) - STAT [id number] 13:23:58 Test Item Value Reference Range Interpretation Comments HEMOGLOBIN (BEAKER) (test code = 8.2 GM/DL 13.0-16.8 L 410) HEMATOCRIT (BEAKER) (test code = 24.0 % 40.0-50.0 L 411) GLUCOSE-STAT [id number] 13:23:57 Test Item Value Reference Range Interpretation Comments GLUCOSE RANDOM (BEAKER) (test code 212 mg/dL 70-110 H = 652) BLOOD GAS, [id number] 13:23:56 Test Item Value Reference Range Interpretation Comments PH ARTERIAL (BEAKER) (test code = 7.36 7.35-7.45 383) PCO2 ARTERIAL (BEAKER) (test code 40 mm Hg 35-45 = 384) PO2 ARTERIAL (BEAKER) (test code 60 mm Hg 80-90 L = 385) O2 SATURATION ARTERIAL (BEAKER) 91.6 % 96.0-97.0 L (test code = 386) HCO3 ARTERIAL (BEAKER) (test code 23 mmol/L = 388) BASE EXCESS ARTERIAL (BEAKER) -2.7 mmol/L -2.0-3.0 L (test code = 387) PATIENT TEMPERATURE (BEAKER) 35.9 (test code = 1818) FIO2 (BEAKER) (test code = 1819) 100.0 POTASSIUM-STAT [id number] 13:23:26 Test Item Value Reference Range Interpretation Comments POTASSIUM (BEAKER) (test code = 3.9 meq/L 3.6-5.5 379) SODIUM NA-STAT [id number] 13:23:25 Test Item Value Reference Range Interpretation Comments SODIUM (BEAKER) (test code = 381) 135 meq/L 136-145 L GLUCOSE-STAT [id number] 12:29:15 Test Item Value Reference Range Interpretation Comments GLUCOSE RANDOM (BEAKER) (test code 181 mg/dL 70-110 H = 652) HGB/HCT (H&H) - STAT [id number] 12:29:15 Test Item Value Reference Range Interpretation Comments HEMOGLOBIN (BEAKER) (test code = 8.3 GM/DL 13.0-16.8 L 410) HEMATOCRIT (BEAKER) (test code = 24.0 % 40.0-50.0 L 411) SODIUM NA-STAT [id number] 12:29:14 Test Item Value Reference Range Interpretation Comments SODIUM (BEAKER) (test code = 381) 133 meq/L 136-145 L BLOOD GAS, [id number] 12:29:13 Test Item Value Reference Range Interpretation [...] (BEAKER) (test code = 1819) 70.0 POTASSIUM-STAT [id number] 12:23:50 Test Item Value Reference Range Interpretation Comments POTASSIUM (BEAKER) (test code = 5.4 meq/L 3.6-5.5 379) HGB/HCT (H&H) - STAT [id number] 12:19:25 Test Item Value Reference Range Interpretation Comments HEMOGLOBIN (BEAKER) (test code = 7.8 GM/DL 13.0-16.8 L 410) HEMATOCRIT (BEAKER) (test code = 23.0 % 40.0-50.0 L 411) GLUCOSE-STAT [id number] 12:19:24 Test Item Value Reference Range Interpretation Comments GLUCOSE RANDOM (BEAKER) (test code 185 mg/dL 70-110 H = 652) BLOOD GAS, [id number] 12:19:23 Test Item Value Reference Range Interpretation [...] (test code = 1819) 70.0 SODIUM NA-STAT [id number] 12:19:23 Test Item Value Reference Range Interpretation Comments SODIUM (BEAKER) (test code = 381) 132 meq/L 136-145 L POTASSIUM-STAT [id number] 12:19:10 Test Item Value Reference Range Interpretation Comments POTASSIUM (BEAKER) (test code = 5.1 meq/L 3.6-5.5 379) Hemoglobin [id number] 12:09:07 Test Item Value Reference Range Interpretation [...] ADM Lab Interpretation Normal (test code = 31719-2) [facility] CenterHemoglobin [id number] 12:09:07 Test Item Value Reference Range Interpretation [...] ADM Lab Interpretation Normal (test code = 97660-1) [facility] CenterHemoglobin [id number] 12:09:07 Test Item Value Reference Range Interpretation [...] ADM Lab Interpretation Normal (test code = 68292-9) [facility] CenterHEMOGLOBIN [id number] 12:09:07 Test Item Value Reference Range Interpretation [...] 5.7- 6.4% indicates increased risk for diabetes (prediabetes)."Video Journalist ID - ADM LACTIC ACID, [id number] 12:07:07 Test Item Value Reference Range Interpretation Comments LACTATE BLOOD 1.0 mmol/L 0.5-2.2 Specimen sligh tly ARTERIAL (2) (BEAKER) hemoly zed (test code = 2874) Video Journalist ID - BSGLUCOSE-STAT [id number] 11:24:11 Test Item Value Reference Range Interpretation Comments GLUCOSE RANDOM (BEAKER) (test code 191 mg/dL 70-110 H = 652) HGB/HCT (H&H) - STAT [id number] 11:24:11 Test Item Value Reference Range Interpretation Comments HEMOGLOBIN (BEAKER) (test code = 7.9 GM/DL 13.0-16.8 L 410) HEMATOCRIT (BEAKER) (test code = 23.0 % 40.0-50.0 L 411) SODIUM NA-STAT [id number] 11:24:10 Test Item Value Reference Range Interpretation Comments SODIUM (BEAKER) (test code = 381) 132 meq/L 136-145 L BLOOD GAS, [id number] 11:24:09 Test Item Value Reference Range Interpretation [...] (test code = 1819) 80.0 LACTIC ACID, [id number] 11:12:30 Test Item Value Reference Range Interpretation Comments LACTATE BLOOD 1.1 mmol/L 0.5-2.2 Specimen sligh tly ARTERIAL (2) (BEAKER) hemoly zed (test code = 2874) Video Journalist ID - BSPOTASSIUM-STAT [id number] 11:12:12 Test Item Value Reference Range Interpretation Comments POTASSIUM (BEAKER) (test code = 4.6 meq/L 3.6-5.5 379) HGB/HCT (H&H) - STAT [id number] 10:59:07 Test Item Value Reference Range Interpretation Comments HEMOGLOBIN (BEAKER) (test code = 8.9 GM/DL 13.0-16.8 L 410) HEMATOCRIT (BEAKER) (test code = 26.0 % 40.0-50.0 L 411) GLUCOSE-STAT [id number] 10:59:06 Test Item Value Reference Range Interpretation Comments GLUCOSE RANDOM (BEAKER) (test code 153 mg/dL 70-110 H = 652) SODIUM NA-STAT [id number] 10:59:05 Test Item Value Reference Range Interpretation Comments SODIUM (BEAKER) (test code = 381) 132 meq/L 136-145 L BLOOD GAS, [id number] 10:59:04 Test Item Value Reference Range Interpretation [...] (BEAKER) (test code = 1819) 80.0 POTASSIUM-STAT [id number] 10:58:12 Test Item Value Reference Range Interpretation Comments POTASSIUM (BEAKER) (test code = 5.3 meq/L 3.6-5.5 379) HGB/HCT (H&H) - STAT [id number] 08:47:12 Test Item Value Reference Range Interpretation Comments HEMOGLOBIN (BEAKER) (test code = 9.5 GM/DL 13.0-16.8 L 410) HEMATOCRIT (BEAKER) (test code = 28.0 % 40.0-50.0 L 411) GLUCOSE-STAT [id number] 08:47:11 Test Item Value Reference Range Interpretation Comments GLUCOSE RANDOM (BEAKER) (test code 121 mg/dL 70-110 H = 652) BLOOD GAS, [id number] 08:47:10 Test Item Value Reference Range Interpretation [...] (BEAKER) (test code = 1819) 95.0 CALCIUM, [id number] 08:46:35 Test Item Value Reference Range Interpretation Comments CALCIUM IONIZED (BEAKER) (test 1.12 mmol/L 1.12-1.27 code = 698) PH, BLOOD (BEAKER) (test code = 7.46 1810) POTASSIUM-STAT [id number] 08:46:14 Test Item Value Reference Range Interpretation Comments POTASSIUM (BEAKER) (test code = 3.7 meq/L 3.6-5.5 379) SODIUM NA-STAT [id number] 08:46:13 Test Item Value Reference Range Interpretation Comments SODIUM (BEAKER) (test code = 381) 135 meq/L 136-145 L [id number] 05:26:11 Test Item Value Reference Range Interpretation Comments TSH (test code = 1.491 See_Comment [Automated 96046-1) message] The system which generated this result transmit dante reference range : 0.350 - 4.940 uIU/mL. The reference range was not used to interpret this result as normal/abnormal . EMERSON (test code = EMERSON) Video Journalist ID Patrick Krishna Lab Interpretation Normal (test code = 14321-2) [place] [id number] 05:26:11 Test Item Value Reference Range Interpretation Comments TSH (test code = 1.491 See_Comment [Automated 27639-5) message] The system which generated this result transmit dante reference range : 0.350 - 4.940 uIU/mL. The reference range was not used to interpret this result as normal/abnormal . EMERSON (test code = EMERSON) Video Journalist ID Patrick Krishna Lab Interpretation Normal (test code = 12830-0) [facility] CenterTSH[facility] 05:26:11 Test Item Value Reference Range Interpretation Comments TSH (test code = 1.491 See_Comment [Automated 94830-7) message] The system which generated this result transmit dante reference range : 0.350 - 4.940 uIU/mL. The reference range was not used to interpret this result as normal/abnormal . EMERSON (test code = EMERSON) Video Journalist ID Patrick Krishna Lab Interpretation Normal (test code = 16501-4) [place] [id number] 05:26:11 Test Item Value Reference Range Interpretation Comments THYROID STIMULATING HORMONE 1.491 uIU/mL 0.350-4.940 (BEAKER) (test code = 772) Video Journalist ID Patrick IVAN MLipid [id number] 04:13:29 Test Item Value Reference Range Interpretation Comments Triglycerides (test 49 mg/dL code = 2571-8) Cholesterol (test code 92 mg/dL = 2093-3) HDL (test code = 43 mg/dL 2085-9) LDL Calculated (test 39 mg/dL code = 68042-1) EMERSON (test code = EMERSON) Triglyceride Reference Range: Low Risk <150 Borderline 150-199 High Risk 200-499 Very High Risk >=500 Cholesterol Reference Range: Low Risk <200 Borderline 200-239 High Risk >240 HDL Cholesterol Reference Range: Low Risk >=60 High Risk <40 LDL Cholesterol Reference Range: Optimal <100 Near Optimal 100-129 Borderline 130-159 High 160-189 Very High >=190 Video Journalist ID - BSOperator ID - BS [facility] CenterLipid [id number] 04:13:29 Test Item Value Reference Range Interpretation Comments Triglycerides (test 49 mg/dL code = 2571-8) Cholesterol (test code 92 mg/dL = 3-3) HDL (test code = 43 mg/dL 2084-9) LDL Calculated (test 39 mg/dL code = 67941-6) EMERSON (test code = EMERSON) Triglyceride Reference Range: Low Risk <150 Borderline 150-199 High Risk 200-499 Very High Risk >=500 Cholesterol Reference Range: Low Risk <200 Borderline 200-239 High Risk >240 HDL Cholesterol Reference Range: Low Risk >=60 High Risk <40 LDL Cholesterol Reference Range: Optimal <100 Near Optimal 100-129 Borderline 130-159 High 160-189 Very High >=190 Video Journalist ID - BSOperator ID - BS [facility] CenterLipid [id number] 04:13:29 Test Item Value Reference Range Interpretation Comments Triglycerides (test 49 mg/dL code = 2571-8) Cholesterol (test code 92 mg/dL = 3-3) HDL (test code = 43 mg/dL 2084-9) LDL Calculated (test 39 mg/dL code = 33733-6) EMERSON (test code = EMERSON) Triglyceride Reference Range: Low Risk <150 Borderline 150-199 High Risk 200-499 Very High Risk >=500 Cholesterol Reference Range: Low Risk <200 Borderline 200-239 High Risk >240 HDL Cholesterol Reference Range: Low Risk >=60 High Risk <40 LDL Cholesterol Reference Range: Optimal <100 Near Optimal 100-129 Borderline 130-159 High 160-189 Very High >=190 Video Journalist ID - BSOperator ID - BS [facility] CenterLIPID [id number] 04:13:29 Test Item Value Reference Range Interpretation [...] Borderline 130-159 High 160-189 Very High >=190 Video Journalist ID - BSOperator ID - BSCBC W/PLT COUNT & AUTO [id number] 03:49:38 Test Item Value Reference Range Interpretation [...] (BEAKER) (test code = 2801) COMPREHENSIVE METABOLIC [id number] 03:30:53 Test Item Value Reference Range Interpretation [...] S NOT APPLICABLE FOR DIALYSIS PATIEN TS. Video Journalist ID - [id number] 03:30:53 Test Item Value Reference Range Interpretation Comments MAGNESIUM (BEAKER) (test code = 2.3 mg/dL 1.6-2.6 627) Video Journalist ID - [id number] 03:22:52 Test Item Value Reference Range Interpretation Comments PARTIAL THROMBOPLASTIN TIME 67.2 seconds 22.5-36.0 H (BEAKER) (test code = 760) PROTHROMBIN TIME/[id number] 03:21:30 Test Item Value Reference Range Interpretation Comments PROTIME (BEAKER) 15.3 seconds 11.9-14.2 H (test code = 759) INR (BEAKER) (test 1.23 See_Comment [Automat ed message] code = 370) The system Georgina Goodman generated this result transmitted ref erence range: <=5.90. The reference range was not used to int erpret this result as normal/abnormal . RECOMMENDED COUMADIN/WARFARIN INR THERAPY RANGESSTANDARD DOSE: 2.0 - 3.0 Includes: PROPHYLAXIS for venous thrombosis, systemic embolization; TREATMENT for venous thrombosis and/or pulmonary embolus.HIGH RISK: Target INR is 2.5-3.5 for patients with mechanical heart valves.BLOOD GAS, [id number] 03:08:40 Test Item Value Reference Range Interpretation [...] (BEAKER) (test 37.0 code = 1818) FIO2 (INESSA) (test code = 1819) 21.0 POCT-GLUCOSE [id number] 21:21:10 Test Item Value Reference Range Interpretation Comments POC-GLUCOSE METER 163 mg/dL 70-110 H : TESTED A T [facility] 67 ([place]) (test code = [facility], 1538) [address]: Video Journalist/Techni bart ID = [id number] for GLORIA VALDERRAMA PROTHROMBIN TIME/[id number] 20:13:27 Test Item Value Reference Range Interpretation Comments PROTIME ([place]) 15.3 seconds 11.9-14.2 H (test code = 759) INR ([facility]) (test 1.23 See_Comment [Automat ed message] code = 370) The system Georgina Goodman generated this result transmitted ref erence range: <=5.90. The reference range was not used to int erpret this result as normal/abnormal . RECOMMENDED COUMADIN/WARFARIN INR THERAPY RANGESSTANDARD DOSE: 2.0 - 3.0 Includes: PROPHYLAXIS for venous thrombosis, systemic embolization; TREATMENT for venous thrombosis and/or pulmonary embolus.HIGH RISK: Target INR is 2.5-3.5 for patients with mechanical heart valves.[id number] 18:18:05 Test Item Value Reference Range Interpretation Comments PARTIAL THROMBOPLASTIN TIME 65.4 seconds 22.5-36.0 H ([place]) (test code = 760) POCT-GLUCOSE [id number] 17:26:15 Test Item Value Reference Range Interpretation Comments POC-GLUCOSE METER 146 mg/dL 70-110 H : Notified RN/MD: ([place]) (test code = TESTED AT [place] [address] 1538) [facility], [address]: Video Journalist/Techni bart ID = [id number] for LL OYD, TIKEYA POCT-GLUCOSE [id number] 11:21:58 Test Item Value Reference Range Interpretation Comments POC-GLUCOSE METER 142 mg/dL 70-110 H : Notified RN/: ([place]) (test code = TESTED AT [place] [address] 1538) [facility], [address]: Video Journalist/Techni bart ID = [id number] for LL OYD, TIKEYA [id number] 11:20:08 Test Item Value Reference Range Interpretation Comments PARTIAL THROMBOPLASTIN TIME 78.4 seconds 22.5-36.0 H (BEAKER) (test code = 760) POCT-GLUCOSE [id number] 08:18:13 Test Item Value Reference Range Interpretation Comments POC-GLUCOSE METER 154 mg/dL 70-110 H : Notified RN/MD: (BEAKER) (test code = TESTED AT [facility] 2873 7823) [facility], [address]: Video Journalist/Techni bart ID = [id number] for GODWIN FLOYD [id number] 06:28:05 Test Item Value Reference Range Interpretation Comments MAGNESIUM (BEAKER) (test code = 2.2 mg/dL 1.6-2.6 627) Video Journalist ID Patrick SARAH WBASIC METABOLIC [id number] 06:28:04 Test Item Value Reference Range Interpretation [...] S NOT APPLICABLE FOR DIALYSIS PATIEN TS. Video Journalist ID - KEARA WCBC W/PLT COUNT & AUTO [id number] 05:57:11 Test Item Value Reference Range Interpretation [...] 0-1 PERCENT (BEAKER) (test code = 2801) [id number] 05:39:02 Test Item Value Reference Range Interpretation Comments PARTIAL THROMBOPLASTIN TIME 55.5 seconds 22.5-36.0 H (BEAKER) (test code = 760) BLOOD GAS, [id number] 05:24:42 Test Item Value Reference Range Interpretation [...] FIO2 (BEAKER) (test code = 1819) 21.0 [id number] 23:08:23 Test Item Value Reference Range Interpretation Comments PARTIAL THROMBOPLASTIN TIME 55.5 seconds 22.5-36.0 H (BEAKER) (test code = 760) POCT-GLUCOSE [id number] 21:56:54 Test Item Value Reference Range Interpretation Comments POC-GLUCOSE METER 108 mg/dL 70-110 : TESTED A T [facility] 6720 (BEAKER) (test code = [facility], 153) [address]: Video Journalist/Techni bart ID = [id number] for Sharon Sol Transesophageal [id number] 21:03:33Ejection FractionSLEH ECHO HEARTLAB MKCKESSON [facility] CenterTrans[facility]ophageal [id number] 21:03:33Ejection FractionSLEH ECHO HEARTLAB MKCKESSON [facility] CenterTransesophageal [id number] 21:03:33Ejection FractionSLEH ECHO HEARTLAB MKCKESSON [facility] CenterPOCT-GLUCOSE [id number] 17:16:14 Test Item Value Reference Range Interpretation Comments POC-GLUCOSE METER 112 mg/dL 70-110 H : TESTED A T [facility] 6720 (BEAKER) (test code = [place], 1538) [address]: Video Journalist/Techni bart ID = [id number] for NAHED HERNANDEZ B-type Natriuretic Factor (BNP)2021-09-05 17:13:19 Test Item Value Reference Range Interpretation Comments BNP (test code = 37209-0) 427 pg/mL 0-100 H EMERSON (test code = EMERSON) Video Journalist ID - BS Lab Interpretation (test Abnormal code = 35467-1) [facility] (BNP)2021-09-05 17:13:19 Test Item Value Reference Range Interpretation Comments BNP (test code = 71066-3) 427 pg/mL 0-100 H EMERSON (test code = EMERSON) Video Journalist ID - BS Lab Interpretation (test Abnormal code = 68360-6) [facility] Center[facility] Factor (BNP)2021-09-05 17:13:19 Test Item Value Reference Range Interpretation Comments BNP (test code = 26432-0) 427 pg/mL 0-100 H EMERSON (test code = EMERSON) Video Journalist ID - BS Lab Interpretation (test Abnormal code = 64522-4) [facility] CenterB-[facility] NATRIURETIC FACTOR (BNP)2021-09-05 17:13:19 Test Item Value Reference Range Interpretation Comments B-TYPE NATRIURETIC PEPTIDE (BEAKER) 427 pg/mL 0-100 H (test code = 700) Video Journalist ID - [id number] 17:08:24 Test Item Value Reference Range Interpretation Comments MAGNESIUM (BEAKER) (test code = 2.3 mg/dL 1.6-2.6 627) Video Journalist ID - BSBASIC METABOLIC [id number] 17:08:23 Test Item Value Reference Range Interpretation [...] S NOT APPLICABLE FOR DIALYSIS PATIEN TS. Video Journalist ID - [id number] 16:56:34 Test Item Value Reference Range Interpretation Comments PARTIAL THROMBOPLASTIN TIME 78.6 seconds 22.5-36.0 H (BEAKER) (test code = 760) POCT-GLUCOSE [id number] 11:40:10 Test Item Value Reference Range Interpretation Comments POC-GLUCOSE METER 123 mg/dL 70-110 H : TESTED A T [facility] 6720 ([facility]) (test code = [facility], 1538) [address]: Video Journalist/Techni bart ID = [id number] for BL UYASMIN ReyesA [id number] 08:48:28 Test Item Value Reference Range Interpretation Comments PARTIAL THROMBOPLASTIN TIME 50.1 seconds 22.5-36.0 H ([facility]) (test code = 760) POCT-GLUCOSE [id number] 08:33:40 Test Item Value Reference Range Interpretation Comments POC-GLUCOSE METER 83 mg/dL 70-110 : TESTED A T [facility] 6720 ([facility]) (test code = [facility], 1538) [address]: Video Journalist/Techni bart ID = [id number] for MELANIE CELESTEGarcia NAHED Carotid doppler [id number] 07:35:52Ejection FractionSLEH ECHO HEARTLAB MKCKESSON [facility] CenterCarotid doppler [id number] 07:35:52Ejection FractionSLEH ECHO HEARTLAB MKTaylor [facility] HospitalCarotid doppler kickbhslr8318-29-07 07:35:52Ejection FractionSLEH ECHO HEARTLAB MKTRIN[facility]ALTHON [facility] CenterAPTT2022-01-18 05:35:19 Test Item Value Reference Range Interpretation Comments PARTIAL THROMBOPLASTIN TIME > seconds 22.5-36.0 HH ([facility]) (test code = 760) RAD, CHEST, 1 VIEW, NON [id number] 05:07:00Reason for exam:->Respiratory failureShould this be performed at the bedside?->Yes [facility] CENTERName: CADEN GILES : 1945 Sex: MFINAL REPORT RAD, CHEST, 1 VIEW, NON DEPT INDICATION: Respiratory failure COMPARISON: Prior day's exam FINDINGS: Portable frontal view of the chest. IMPRESSION: Lungs and pleura: Bilateral pulmonary opacities are reduced. No pneumothorax.Heart and mediastinum: Stable contours. Additional findings: None. Signed: Link Pak MDReport Verified Date/Time: 09/05/2021 05:07:55 [id number] 05:06:53 Test Item Value Reference Range Interpretation Comments MAGNESIUM (BEAKER) (test code = 2.3 mg/dL 1.6-2.6 627) Video Journalist ID - SHANE GBASIC METABOLIC [id number] 05:06:52 Test Item Value Reference Range Interpretation [...] S NOT APPLICABLE FOR DIALYSIS PATIEN TS. Video Journalist ID - SHANE GVancomycin level, [id number] 05:03:34 Test Item Value Reference Range Interpretation Comments Vancomycin Tr (test code = 7.0 ug/mL 10.0-20.0 L 4092-3) EMERSON (test code = EMERSON) Video Journalist ID - SHANE G Lab Interpretation (test Abnormal code = 46709-2) [facility] Center[facility], [id number] 05:03:34 Test Item Value Reference Range Interpretation Comments Vancomycin Tr (test code = 7.0 ug/mL 10.0-20.0 L 4092-3) EMERSON (test code = EMERSON) Video Journalist ID - SHANE G Lab Interpretation (test Abnormal code = 02587-5) [facility] Center[facility]com[facility] level, [id number] 05:03:34 Test Item Value Reference Range Interpretation Comments Vancomycin Tr (test code = 7.0 ug/mL 10.0-20.0 L 4092-3) EMERSON (test code = EMERSON) Video Journalist ID - SHANE G Lab Interpretation (test Abnormal code = 44644-9) [facility] CenterVANCOMYCIN LEVEL, [id number] 05:03:34 Test Item Value Reference Range Interpretation Comments VANCOMYCIN TROUGH (BEAKER) (test 7.0 ug/mL 10.0-20.0 L code = 522) Video Journalist ID - SHANE GBLOOD GAS, [id number] 04:54:51 Test Item Value Reference Range Interpretation [...] (BEAKER) (test code = 1819) 21.0 POCT-GLUCOSE [id number] 00:08:56 Test Item Value Reference Range Interpretation Comments POC-GLUCOSE METER 92 mg/dL 70-110 : TESTED A T [facility] 6720 (BEAKER) (test code [facility], = 1538) [address]: Video Journalist/Techni bart ID = [id number] for Christopher Hoskins [id number] 22:59:43 Test Item Value Reference Range Interpretation Comments PARTIAL THROMBOPLASTIN TIME 105.5 seconds 22.5-36.0 H (BEAKER) (test code = 760) POCT-GLUCOSE [id number] 22:43:54 Test Item Value Reference Range Interpretation Comments POC-GLUCOSE METER 131 mg/dL 70-110 H : TESTED A T [facility] 6720 (BEAKER) (test code = [facility], 1538) 24[address]: Video Journalist/Techni bart ID = [id number] for ANDI MIGUEL BASIC METABOLIC [id number] 20:21:48 Test Item Value Reference Range Interpretation [...] S NOT APPLICABLE FOR DIALYSIS PATIEN TS. Video Journalist ID - [id number] 20:21:48 Test Item Value Reference Range Interpretation Comments MAGNESIUM (BEAKER) (test code = 2.4 mg/dL 1.6-2.6 627) Video Journalist ID - DBBLOOD GAS, [id number] 18:19:48 Test Item Value Reference Range Interpretation [...] (BEAKER) (test code = 1819) 21.0 POCT-GLUCOSE [id number] 18:13:29 Test Item Value Reference Range Interpretation Comments POC-GLUCOSE METER 98 mg/dL 70-110 : TESTED A T [facility] 6720 (BEAKER) (test code = [place], 1538) [address]: Video Journalist/Techni bart ID = [id number] for NAHED JOHN [id number] 15:50:51 Test Item Value Reference Range Interpretation Comments PARTIAL THROMBOPLASTIN TIME 79.7 seconds 22.5-36.0 H (BEAKER) (test code = 760) [id number] 14:42:01 Test Item Value Reference Range Interpretation Comments PARTIAL THROMBOPLASTIN TIME 196.8 seconds 22.5-36.0 HH (BEAKER) (test code = 760) [id number] 13:31:24 Test Item Value Reference Range Interpretation Comments PARTIAL THROMBOPLASTIN TIME > seconds 22.5-36.0 HH (BEAKER) (test code = 760) POCT-GLUCOSE [id number] 12:32:34 Test Item Value Reference Range Interpretation Comments POC-GLUCOSE METER 96 mg/dL 70-110 : TESTED A T [facility] 6720 (BEAKER) (test code = [facility], 1538) [address]: Video Journalist/Techni bart ID = [id number] for THOMAS JOHNA POCT-GLUCOSE [id number] 09:39:48 Test Item Value Reference Range Interpretation Comments POC-GLUCOSE METER 93 mg/dL 70-110 : TESTED A T [facility] 6720 (BEAKER) (test code = [facility], 1538) 87135: Video Journalist/Techni bart ID = [id number] for MELANIERAJIV NICOLE, NAHED [id number] 05:38:09 Test Item Value Reference Range Interpretation Comments MAGNESIUM (BEAKER) (test code = 2.2 mg/dL 1.6-2.6 627) Video Journalist ID - KAYLEEN LBASIC METABOLIC [id number] 05:38:08 Test Item Value Reference Range Interpretation [...] S NOT APPLICABLE FOR DIALYSIS PATIEN TS. Video Journalist ID - KAYLEEN [id number] 05:37:51 Test Item Value Reference Range Interpretation Comments PARTIAL THROMBOPLASTIN TIME 74.7 seconds 22.5-36.0 H (BEAKER) (test code = 760) BLOOD GAS, [id number] 05:36:41 Test Item Value Reference Range Interpretation [...] 1819) 21.0 CBC W/PLT COUNT & AUTO [id number] 05:07:56 Test Item Value Reference Range Interpretation [...] = 2801) RAD, CHEST, 1 VIEW, NON [id number] 04:31:00Reason for exam:->Respiratory failureShould this be performed at the bedside?->Yes [facility] : 1945 Sex: MFINAL REPORT RAD, CHEST, 1 VIEW, NON DEPT INDICATION: Respiratory failure COMPARISON: Prior day's exam FINDINGS: Portable frontal view of the chest. IMPRESSION: Support Lines: None Lungs and pleura: Reduced airspace and pleural opacities. No pneumothorax.Heart and mediastinum: Stable contours. Additional findings: None. Signed: Link Pak MDReport Verified Date/Time: 09/04/2021 04:31:46 POCT-GLUCOSE [id number] 22:15:29 Test Item Value Reference Range Interpretation Comments POC-GLUCOSE METER 113 mg/dL 70-110 H : TESTED A T [facility] 6720 (BEAKER) (test code = [place], 1538) [address]: Video Journalist/Techni bart ID = [id number] for THEODORA ACOSTA (V)EVAN Zqvucoobzmfhq6559-70-60 17:34:10 Test Item Value Reference Range Interpretation Comments Procalcitonin (test code = 0.74 ng/mL <0.05 H 80087-9) EMERSON (test code = EMERSON) SEPSIS RISK (ng/mL)Low: 0.05-0.50Intermedia te: 0.51-2.00High: >=2.01 Lab Interpretation (test Abnormal code = 01736-4) [facility] CenterYgefqwDcgfzvwklqclo9348-85-53 17:34:10 Test Item Value Reference Range Interpretation Comments Procalcitonin (test code = 0.74 ng/mL <0.05 H 98309-6) EMERSON (test code = EMERSON) SEPSIS RISK (ng/mL)Low: 0.05-0.50Intermedia te: 0.51-2.00High: >=2.01 Lab Interpretation (test Abnormal code = 61942-6) [facility] CenterTsqurbSsxjqucskmblj5669-74-27 17:34:10 Test Item Value Reference Range Interpretation Comments Procalcitonin (test code = 0.74 ng/mL <0.05 H 60956-9) EMERSON (test code = EMERSON) SEPSIS RISK (ng/mL)Low: 0.05-0.50Intermedia te: 0.51-2.00High: >=2.01 Lab Interpretation (test Abnormal code = 91694-7) [facility] CenterSmcuysUKKMQRQEOOFTY8591-94-28 17:34:10 Test Item Value Reference Range Interpretation Comments PROCALCITONIN (BEAKER) (test code 0.74 ng/mL <0.05 H = 3036) SEPSIS RISK (ng/mL)Low: 0.05-0.50Intermediate: 0.51-2.00High: >=2.01BASIC METABOLIC [id number] 17:02:45 Test Item Value Reference Range Interpretation [...] S NOT APPLICABLE FOR DIALYSIS PATIEN TS. Video Journalist ID - [id number] 17:02:45 Test Item Value Reference Range Interpretation Comments MAGNESIUM (BEAKER) (test code = 2.3 mg/dL 1.6-2.6 627) Video Journalist ID - DBPOCT-GLUCOSE [id number] 16:39:27 Test Item Value Reference Range Interpretation Comments POC-GLUCOSE METER 102 mg/dL 70-110 : TESTED A T [facility] 6720 (BEAKER) (test code = [place], 1538) 155[address]: Video Journalist/Techni bart ID = [id number] for Eduardo Brown BLOOD GAS, [id number] 16:20:14 Test Item Value Reference Range Interpretation [...] = 1819) 32.0 2D Echo W/Doppler(CW/PW/Color)2021-09-03 14:12:53Ejection FractionSLE ECHO [facility] W/Doppler(CW/PW/Color)2021-09-03 14:12:53[facility]jection [facility] W/Doppler(CW/PW/Color) 2021-09-03 14:12:53Ejection FractionSLE ECHO [facility] HospitalMAGN[facility]IUM2022-01-16 07:54:36 Test Item Value Reference Range Interpretation Comments MAGNESIUM (BEAKER) (test code = 2.4 mg/dL 1.6-2.6 627) Video Journalist ID - PIAYA LRAD, CHEST, 1 VIEW, NON [id number] 06:39:00Reason for exam:->Respiratory failureShould this be performed at the bedside?->Yes [facility] 1945 Sex: MFINAL [...] MDReport Verified Date/Time: 09/03/2021 06:39:59 BASIC METABOLIC [id number] 05:41:02 Test Item Value Reference Range Interpretation [...] S NOT APPLICABLE FOR DIALYSIS PATIEN TS. Video Journalist ID - PIAYA LBLOOD GAS, [id number] 05:28:49 Test Item Value Reference Range Interpretation [...] = 1819) 50.0 High Sensitivity Troponin I ([facility]/Suraj Only)2021-09-03 05:25:39 Test Item Value Reference Range Interpretation Comments Troponin I HS (test 35 pg/ml See_Comment [Automa dante code = 91430-1) message] The system which generated this result transmitted reference range : <=35. The reference range was not used to interpret this result as normal/abnormal . EMERSON (test code = Video Journalist ID - EMERSON) PIAtlanteTrekhe DIRECTOR OF ENTERPRISE STRATEGY STAT High Sensitivity Troponin-I results should be used in conjunction with other diagnostic information such as ECG, clinical observations and information, and patient symptoms to aid in the diagnosis of KS. Lab Interpretation Normal (test code = 10287-2) [facility] 2021-09-03 05:25:39 Test Item Value Reference Range Interpretation Comments Troponin I HS (test 35 pg/ml See_Comment [Automa dante code = 42757-5) message] The system which generated this result transmitted reference range : <=35. The reference range was not used to interpret this result as normal/abnormal . EMERSON (test code = Video Journalist ID - EMERSON) [employer] Pharm[employer]she DIRECTOR OF ENTERPRISE STRATEGY STAT High Sensitivity Troponin-I results should be used in conjunction with other diagnostic information such as ECG, clinical observations and information, and patient symptoms to aid in the diagnosis of KS. Lab Interpretation Normal (test code = 42117-2) [facility] Center[facility]rop[facility] 2021-09-03 05:25:39 Test Item Value Reference Range Interpretation Comments Troponin I HS (test 35 pg/ml See_Comment [Automa dante code = 95068-6) message] The system which generated this result transmitted reference range : <=35. The reference range was not used to interpret this result as normal/abnormal . EMERSON (test code = Video Journalist ID - EMERSON) PIAtlanteTrekhe DIRECTOR OF ENTERPRISE STRATEGY STAT High Sensitivity Troponin-I results should be used in conjunction with other diagnostic information such as ECG, clinical observations and information, and patient symptoms to aid in the diagnosis of KS. Lab Interpretation Normal (test code = 39946-0) [facility] CenterHIGH SENSITIVITY TROPONIN [id number] 05:25:39 Test Item Value Reference Range Interpretation Comments HIGH SENSITIVITY 35 pg/ml See_Comment [Automated message] TROPONIN I (test code = The system which [id number]) generated this result transmitted ref erence range: <=35. Th e reference range was not used to int erpret this result as normal/abnormal . Video Journalist ID - KAYLEEN Phelan DIRECTOR OF ENTERPRISE STRATEGY STAT High Sensitivity Troponin-I results should be used in conjunction with other diagnostic information such as ECG, clinical observations and information, and patient symptoms to aid in the diagnosis of KS.B-TYPE NATRIURETIC FACTOR (BNP)2021-09-03 05:25:38 Test Item Value Reference Range Interpretation Comments B-TYPE NATRIURETIC PEPTIDE 1522 pg/mL 0-100 H (BEAKER) (test code = 700) Video Journalist ID Patrick BEYER LLactic acid, [id number] 05:08:12 Test Item Value Reference Range Interpretation Comments Lactate, Venous (test code 0.98 mmol/L 0.50-2.20 = 2872) EMERSON (test code = EMERSON) Video Journalist ID - KAYLEEN L Lab Interpretation (test Normal code = 22658-1) [facility] CenterLactic acid, [id number] 05:08:12 Test Item Value Reference Range Interpretation Comments Lactate, Venous (test code 0.98 mmol/L 0.50-2.20 = 2872) EMERSON (test code = EMERSON) Video Journalist ID - KAYLEEN L Lab Interpretation (test Normal code = 86294-2) [facility] CenterLactic acid, [id number] 05:08:12 Test Item Value Reference Range Interpretation Comments Lactate, Venous (test code 0.98 mmol/L 0.50-2.20 = 2872) EMERSON (test code = EMERSON) Video Journalist ID - KAYLEEN L Lab Interpretation (test Normal code = 58488-3) [facility] CenterLACTIC ACID, [id number] 05:08:12 Test Item Value Reference Range Interpretation Comments LACTATE BLOOD VENOUS (2) (BEAKER) 0.98 mmol/L 0.50-2.20 (test code = 2872) Video Journalist ID - KAYLEEN LCBC W/PLT COUNT & AUTO [id number] 04:46:58 Test Item Value Reference Range Interpretation [...] (test code = 2801) HIGH SENSITIVITY TROPONIN [id number] 23:24:52 Test Item Value Reference Range Interpretation Comments HIGH SENSITIVITY 60 pg/ml See_Comment H [Automated message] TROPONIN I (test code = The system which [id number]) generated this result transmitted ref erence range: <=35. Th e reference range was not used to int erpret this result as normal/abnormal . Video Journalist ID - PIAYA LThe DIRECTOR OF ENTERPRISE STRATEGY STAT High Sensitivity Troponin-I results should be used in conjunction with other diagnostic information such as ECG, clinical observations and information, and patient symptoms to aid in the diagnosis of KS.LACTIC ACID, [id number] 23:16:31 Test Item Value Reference Range Interpretation Comments LACTATE BLOOD VENOUS 2.39 mmol/L 0.50-2.20 H Specime n slightly (2) (BEAKER) (test hemolyzed code = 2872) Video Journalist ID - PIAYA LBASIC METABOLIC [id number] 20:00:02 Test Item Value Reference Range Interpretation [...] S NOT APPLICABLE FOR DIALYSIS PATIEN TS. Video Journalist ID - DBLACTIC ACID, [id number] 19:50:59 Test Item Value Reference Range Interpretation Comments LACTATE BLOOD VENOUS 3.70 mmol/L 0.50-2.20 H Specime n slightly (2) (BRAXTON) (test hemolyzed code = 2872) Video Journalist ID - OMCKVBNPWMBFZWO3209-12-34 18:48:36 Test Item Value Reference Range Interpretation Comments PROCALCITONIN (BRAXTON) (test code = < ng/mL <0.05 3036) SEPSIS RISK (ng/mL)Low: 0.05-0.50Intermediate: 0.51-2.00High: >=2.01B-TYPE NATRIURETIC FACTOR (BNP)2021-09-02 18:06:28 Test Item Value Reference Range Interpretation Comments B-TYPE NATRIURETIC PEPTIDE (BRAXTON) 801 pg/mL 0-100 H (test code = 700) Video Journalist ID - DBHIGH SENSITIVITY TROPONIN [id number] 18:06:07 Test Item Value Reference Range Interpretation Comments HIGH SENSITIVITY 10 pg/ml See_Comment [Automated message] TROPONIN I (test code = The system which [id number]) generated this result transmitted ref erence range: <=35. Th e reference range was not used to int erpret this result as normal/abnormal . Video Journalist ID - DBThe DIRECTOR OF ENTERPRISE STRATEGY STAT High Sensitivity Troponin-I results should be used in conjunctionwith other diagnostic information such as ECG, clinical observations and information, and patient symptoms to aid in the diagnosis of KS.LACTIC ACID, [id number] 18:03:35 Test Item Value Reference Range Interpretation Comments LACTATE BLOOD 5.0 mmol/L 0.5-2.2 HH Specimen sligh tly ARTERIAL (2) (BRAXTON) hemoly zed (test code = 2874) Video Journalist ID - DBRAD, CHEST, 1 VIEW, NON [id number] 18:01:00Reason for exam:- >dyspneaShould this be performed at the bedside?->Yes [facility] : 1945 Sex: MFINAL REPORT RAD, CHEST, 1 VIEW, NON DEPT INDICATION: dyspnea COMPARISON: 07/03/21 FINDINGS: Portable frontal view of the chest. IMPRESSION: Support Lines: Overlying leads Lungs and pleura: Bibasilar airspace disease and small bilateral effusions, compatible with mild volume overload. No significant pneumothorax. Heart and mediastinum: Normal contours. Additional findings: None. Signed: Grsielda Cordero Verified Date/Time: 09/02/2021 18:01:04 -[id number] 17:41:20 Test Item Value Reference Range Interpretation Comments POC-Glucose (test code = 245 mg/dL 70-110 H : T ESTED AT [facility] 1855) [address] [place] [address], 770 30: Video Journalist/Techni bart ID = [id number] for RIA, NAVDEEP Lab Interpretation (test Abnormal code = 72890-1) [facility] HospitalEMXGQWS3244-97-37 17:41:20 Test Item Value Reference Range Interpretation Comments POC-Glucose (test code = 245 mg/dL 70-110 H : T ESTED AT [facility] 1855) [address] [place] [address], 770 30: Video Journalist/Techni bart ID = [id number] for RIA, NAVDEEP Lab Interpretation (test Abnormal code = 18912-5) [facility]-[id number] 17:41:20 Test Item Value Reference Range Interpretation Comments POC-Glucose (test code = 245 mg/dL 70-110 H : T ESTED AT [facility] 1855) [address] [place] [address], 770 30: Video Journalist/Techni bart ID = [id number] for RIA, NAVDEEP Lab Interpretation (test Abnormal code = 17020-1) [facility] HospitalIWSIKCG0789-64-54 17:41:20 Test Item Value Reference Range Interpretation Comments POC-GLUCOSE (BEAKER) 245 mg/dL 70-110 H : TESTE D AT [facility] 6720 (test code = 1855) [facility], [address]: Video Journalist/Techni bart ID = [id number] for PAIG E, NAVDEEP GNBL-[id number] 17:41:19 Test Item Value Reference Range Interpretation Comments POC-Hemoglobin (test code 12.2 g/dL 13.0-16.8 L : TESTED AT [facility] = 1856) 6720 [facility], 770 30: Video Journalist/Techni bart ID = [id number] for RIA, NAVDEEP Lab Interpretation (test Abnormal code = 05895-5) [facility] CenterCgjfnvGUTF-QIAIYKJTNL9997-82-15 17:41:19 Test Item Value Reference Range Interpretation Comments POC-Hematocrit (test code 36 % 40-50 L : = 1857) Video Journalist/Techni bart ID = [id number] for RIA, NAVDEEP Lab Interpretation (test Abnormal code = 31998-4) [facility] CenterGqdhisDFGD-NRYQAXWAMV0803-61-15 17:41:19 Test Item Value Reference Range Interpretation Comments POC-Hemoglobin (test code 12.2 g/dL 13.0-16.8 L : TESTED AT [facility] = 1856) 6720 [facility], 770 30: Video Journalist/Techni bart ID = [id number] for RIA, NAVDEEP Lab Interpretation (test Abnormal code = 91129-3) [facility] CenterLaewatKIFE-HJYHBNTTVP2239-80-15 17:41:19 Test Item Value Reference Range Interpretation Comments POC-Hematocrit (test code 36 % 40-50 L : = 1857) Video Journalist/Techni bart ID = [id number] for RIA, NAVDEEP Lab Interpretation (test Abnormal code = 87161-0) [facility] CenterTphhgdDPSC-SERTZUDXPQ1510-98-15 17:41:19 Test Item Value Reference Range Interpretation Comments POC-Hemoglobin (test code 12.2 g/dL 13.0-16.8 L : TESTED AT [facility] = 1856) 20 [facility], 770 30: Video Journalist/Techni bart ID = [id number] for RIA, NAVDEEP Lab Interpretation (test Abnormal code = 19017-9) [facility] CenterGswufbMGGT-WZHJVVJDSB5734-86-15 17:41:19 Test Item Value Reference Range Interpretation Comments POC-Hematocrit (test code 36 % 40-50 L : = 1857) Video Journalist/Techni bart ID = [id number] for RIA, NAVDEEP Lab Interpretation (test Abnormal code = 98632-6) [facility] CenterLkknsnFHZP-AWODLKAHOC6064-00-15 17:41:19 Test Item Value Reference Range Interpretation Comments POC-HEMOGLOBIN 12.2 g/dL 13.0-16.8 L : TESTED AT [facility] 6720 (BEAKER) (test code [facility], = 1856) [address]: Video Journalist/Techni bart ID = [id number] for MARIELYG E, NAVDEEP DYDN-[id number] 17:41:19 Test Item Value Reference Range Interpretation Comments POC-HEMATOCRIT 36 % 40-50 L : Video Journalist/Te chnician ID = (BEAKER) (test code = 969965 for RIA, NAVDEEP 1857) FOQ-Eidqpbzun9720-08-15 17:41:18 Test Item Value Reference Range Interpretation Comments POC-Potassium (test code 4.6 meq/L 3.6-5.5 : T ESTED AT [facility] = 1540) 6720 [facility], 770 30: Video Journalist/Techni bart ID = [id number] for RIA, NAVDEEP Lab Interpretation (test Normal code = 94031-2) [facility]-Vhrzvxoxq4846-16-21 17:41:18 Test Item Value Reference Range Interpretation Comments POC-Potassium (test code 4.6 meq/L 3.6-5.5 : T ESTED AT [facility] = 1540) 6720 [facility], 770 30: Video Journalist/Techni bart ID = [id number] for RIA, NAVDEEP Lab Interpretation (test Normal code = 94486-7) [facility]-Ijtgmmxbl1657-88-68 17:41:18 Test Item Value Reference Range Interpretation Comments POC-Potassium (test code 4.6 meq/L 3.6-5.5 : T ESTED AT [facility] = 1540) 20 [facility], 770 30: Video Journalist/Techni bart ID = [id number] for RIA, NAVDEEP Lab Interpretation (test Normal code = 57668-9) [facility]-SHCEQYFAC6653-91-82 17:41:18 Test Item Value Reference Range Interpretation Comments POC-POTASSIUM 4.6 meq/L 3.6-5.5 : TESTED AT [facility] 6720 (BEAKER) (test code [facility], = 1540) [address]: Video Journalist/Techni bart ID = [id number] for PAIG E, NAVDEEP WDW-Gdixsk7213-32-15 17:41:13 Test Item Value Reference Range Interpretation Comments POC-Sodium (test code = 133 meq/L 135-148 L : TE STED AT [facility] 1542) 20 [facility], 770 30: Video Journalist/Techni bart ID = [id number] for RIA, NAVDEEP Lab Interpretation (test Abnormal code = 25880-6) [facility]-Kjwfux0037-95-91 17:41:13 Test Item Value Reference Range Interpretation Comments POC-Sodium (test code = 133 meq/L 135-148 L : TE STED AT [facility] 1542) [address] [place] [address], 770 30: Video Journalist/Techni abrt ID = [id number] for RIA, NAVDEEP Lab Interpretation (test Abnormal code = 95086-7) [facility]-Nskfxk9802-63-21 17:41:13 Test Item Value Reference Range Interpretation Comments POC-Sodium (test code = 133 meq/L 135-148 L : TE STED AT [facility] 1542) [address] [place] [address], 770 30: Video Journalist/Techni bart ID = [id number] for RIA, NAVDEEP Lab Interpretation (test Abnormal code = 34464-4) [facility]-DWWWPI7265-16-20 17:41:13 Test Item Value Reference Range Interpretation Comments POC-SODIUM (BEAKER) 133 meq/L 135-148 L : TESTED AT [facility] 6720 (test code = 1542) [facility], [address]: Video Journalist/Techni bart ID = [id number] for PAIG E, NAVDEEP POC-Blood gases, xiepvnnb7903-18-84 17:41:12 Test Item Value Reference Range Interpretation [...] tomated message] code = 1838) The system [employer] h generated this result transmit dante reference range : 80.0 - 90.0 mm Hg. The reference r mayra was not used to interpret this result as normal/abnormal . SO2, Arterial-POC (test 92.0 % 96.0-97.0 L code = 1839) HCO3, Arterilal-POC 17.9 meq/L 21.0-29.0 L (test code = 1840) BE, Arterial-POC (test -7.0 meq/L -2.0-3.0 L : MARIO DANTE AT [facility] code = 1841) [address] [facility] [place], [address]: Video Journalist/Techni bart ID = [id number] for NAVDEEP ROLLINS Lab Interpretation Abnormal (test code = 97858-0) [facility]-Blood gases, pzldwjem6240-40-06 17:41:12 Test Item Value Reference Range Interpretation [...] tomated message] code = 1838) The system Georgina Goodman generated this result transmit dante reference range : 80.0 - 90.0 mm Hg. The reference r mayra was not used to interpret this result as normal/abnormal . SO2, Arterial-POC (test 92.0 % 96.0-97.0 L code = 1839) HCO3, Arterilal-POC 17.9 meq/L 21.0-29.0 L (test code = 1840) BE, Arterial-POC (test -7.0 meq/L -2.0-3.0 L : MARIO DANTE AT [facility] code = 1841) [address] [facility], [address]: Video Journalist/Techni bart ID = [id number] for NAVDEEP ROLLINS Lab Interpretation Abnormal (test code = 58001-0) [facility]-Blood gases, lycwroyc6356-29-29 17:41:12 Test Item Value Reference Range Interpretation [...] tomated message] code = 1838) The system Georgina Goodman generated this result transmit dante reference range : 80.0 - 90.0 mm Hg. The reference r mayra was not used to interpret this result as normal/abnormal . SO2, Arterial-POC (test 92.0 % 96.0-97.0 L code = 1839) HCO3, Arterilal-POC 17.9 meq/L 21.0-29.0 L (test code = 1840) BE, Arterial-POC (test -7.0 meq/L -2.0-3.0 L : MARIO DANTE AT [facility] code = 1841) [address] [facility] [place], [address]: Video Journalist/Techni bart ID = [id number] for EDWARD ROLLINSA Lab Interpretation Abnormal (test code = 13230-7) [facility], [id number] 17:41:12 Test Item Value Reference Range Interpretation [...] [facility] [address] [facility], (BEAKER) (test code 05132: = 1841) Video Journalist/Techni bart ID = [id number] for NAVDEEP SANTILLAN CT, CHEST, WITH [id number] 16:35:00Unlisted Reason for Exam - Click Yes and Enter Reason Below->YesUnlisted Reason for Exam->rapid 40 lb wt loss, concern for [facility] 1945 Sex: MFINAL [...] MDReport Verified Date/Time: 09/02/2021 16:35:31 Reading Location: [facility] C013Y CT Body Reading Room BASIC METABOLIC [id number] 05:54:20 Test Item Value Reference Range Interpretation [...] S NOT APPLICABLE FOR DIALYSIS PATIEN TS. Video Journalist ID - SHANE GCBC W/PLT COUNT & AUTO [id number] 05:27:33 Test Item Value Reference Range Interpretation [...] 0-1 PERCENT (BEAKER) (test code = 2801) [id number] 18:20:35 Test Item Value Reference Range Interpretation Comments Ferritin (test code = 36.01 ng/mL 5.00-275.00 2276-4) EMERSON (test code = EMERSON) Video Journalist ID - PIAYA L Lab Interpretation (test Normal code = 13964-9) [facility] Center[facility]in[facility]-14 18:20:35 Test Item Value Reference Range Interpretation Comments Ferritin (test code = 36.01 ng/mL 5.00-275.00 2276-4) EMERSON (test code = EMERSON) Video Journalist ID - PIAYA L Lab Interpretation (test Normal code = 61496-2) [facility] Center[facility]in2022-[facility]-14 18:20:35 Test Item Value Reference Range Interpretation Comments Ferritin (test code = 36.01 ng/mL 5.00-275.00 2276-4) EMERSON (test code = EMERSON) Video Journalist ID - PIMARIELA L Lab Interpretation (test Normal code = 07896-5) [facility] CenterFERRITIN2022-01-14 18:20:35 Test Item Value Reference Range Interpretation Comments FERRITIN (BEAKER) (test code = 36.01 ng/mL 5.00-275.00 361) Video Journalist ID - KAYLEEN Duglas, TIBC, % sat. (without ferritin)2021-09-01 18:00:19 Test Item Value Reference Range Interpretation Comments Iron (test code = 2498-4) 14.0 ug/dL 40.0-160.0 L TIBC (test code = 2500-7) 355 ug/dL 250-450 Iron % Saturation (test 4 % 20-55 L code = 2502-3) EMERSON (test code = EMERSON) Video Journalist ID - KAYLENE L Lab Interpretation (test Abnormal code = 75168-9) [facility] CenterIro, TIBC, % sat. (without ferritin)2021-09-01 18:00:19 Test Item Value Reference Range Interpretation Comments Iron (test code = 2498-4) 14.0 ug/dL 40.0-160.0 L TIBC (test code = 2500-7) 355 ug/dL 250-450 Iron % Saturation (test 4 % 20-55 L code = 2502-3) EMERSON (test code = EMERSON) Video Journalist ID - KAYLEEN L Lab Interpretation (test Abnormal code = 80252-6) [facility] % sat. (without ferritin)2021-09-01 18:00:19 Test Item Value Reference Range Interpretation Comments Iron (test code = 2498-4) 14.0 ug/dL 40.0-160.0 L TIBC (test code = 2500-7) 355 ug/dL 250-450 Iron % Saturation (test 4 % 20-55 L code = 2502-3) EMERSON (test code = EMERSON) Video Journalist ID - PIMARIELA L Lab Interpretation (test Abnormal code = 70211-6) [facility] CenterIRO, TIBC, % SAT. (WITHOUT FERRITIN)2021-09-01 18:00:19 Test Item Value Reference Range Interpretation Comments IRON (BEAKER) (test code = 547) 14.0 ug/dL 40.0-160.0 L TOTAL IRON BINDING CAPACITY 355 ug/dL 250-450 (BEAKER) (test code = 769) IRON % SATURATION (2) (BEAKER) 4 % 20-55 L (test code = 2590) Video Journalist ID - PIAYA L2D Echo W/Doppler(CW/PW/Color)2021-09-01 17:31:53Ejection FractionSLEH ECHO HEART[facility]2D Echo W/Doppler(CW/PW/Color)2021-09-01 17:31:53Ejection FractionSLEH ECHO HEARTLAB [facility]2D Echo W/Doppler(CW/PW/Color) 2021-09-01 17:31:53Ejection FractionSLE [facility]CHO [facility] HospitalFL, ESOPH, SWALLOW FUNCTION, WITH CINE OR [id number] 12:11:00Reason for exam:->TIMED BARIUIM SWALLOW at 1, 5 and 10 minutes with tablet for dysphagia w/ neg EGD [facility] 1945 Sex: MFINAL [...] [place] Verified Date/Time: 09/01/2021 12:11:08 Reading Location: [facility] C013X Ortho Consult Reading Room HEPATIC FUNCTION [id number] 07:23:40 Test Item Value Reference Range Interpretation [...] (test code = 45 U/L 6-55 347) Video Journalist ID - KAYLEEN [id number] 07:23:39 Test Item Value Reference Range Interpretation Comments MAGNESIUM (BEAKER) (test code = 2.3 mg/dL 1.6-2.6 627) Video Journalist ID - PIMARIELA [id number] 07:23:39 Test Item Value Reference Range Interpretation Comments PHOSPHORUS (BEAKER) (test code = 3.8 mg/dL 2.3-4.7 604) Video Journalist ID - PIMARIELA LBASIC METABOLIC [id number] 07:23:38 Test Item Value Reference Range Interpretation [...] S NOT APPLICABLE FOR DIALYSIS PATIEN TS. Video Journalist ID - KAYLEEN LTSH/Free T4 If Vhugvjxes5908-75-37 06:55:05 Test Item Value Reference Range Interpretation Comments TSH (test code = 1.112 See_Comment [Automated 38574-5) message] The system which generated this result transmit dante reference range : 0.350 - 4.940 uIU/mL. The reference range was not used to interpret this result as normal/abnormal . EMERSON (test code = EMERSON) Video Journalist ID - KAYLEEN L Lab Interpretation Normal (test code = 84015-4) [facility]/Free T4 If Sklgkgpxb9795-00-08 06:55:05 Test Item Value Reference Range Interpretation Comments TSH (test code = 1.112 See_Comment [Automated 81411-5) message] The system which generated this result transmit dante reference range : 0.350 - 4.940 uIU/mL. The reference range was not used to interpret this result as normal/abnormal . EMERSON (test code = EMERSON) Video Journalist ID - KAYLEEN L Lab Interpretation Normal (test code = 20103-2) [facility]/Free T4 If Wqqzublqs2337-11-46 06:55:05 Test Item Value Reference Range Interpretation Comments TSH (test code = 1.112 See_Comment [Automated 16737-0) message] The system which generated this result transmit dante reference range : 0.350 - 4.940 uIU/mL. The reference range was not used to interpret this result as normal/abnormal . EMERSON (test code = EMERSON) Video Journalist ID - PIMARIELA L Lab Interpretation Normal (test code = 36259-6) [facility]/FREE T4 IF [id number] 06:55:05 Test Item Value Reference Range Interpretation Comments THYROID STIMULATING HORMONE 1.112 uIU/mL 0.350-4.940 (BEAKER) (test code = 772) Video Journalist ID - KAYLEEN LPROTHROMBIN TIME/WNC4996-21-12 06:24:18 Test Item Value Reference Range Interpretation Comments PROTIME (BEAKER) 17.9 seconds 11.9-14.2 H (test code = 759) INR (BEAKER) (test 1.51 See_Comment [Automat ed message] code = 370) The system Georgina Goodman generated this result transmitted ref erence range: <=5.90. The reference range was not used to int erpret this result as normal/abnormal . RECOMMENDED COUMADIN/WARFARIN INR THERAPY RANGESSTANDARD DOSE: 2.0 - 3.0 Includes: PROPHYLAXIS for venous thrombosis, systemic embolization; TREATMENT for venous thrombosis and/or pulmonary embolus.HIGH RISK: Target INR is 2.5-3.5 for patients with mechanical heart valves.CBC W/PLT COUNT & AUTO [id number] 06:22:43 Test Item Value Reference Range Interpretation [...] SARS-Co V-2 (test code = target nucleic 51205-1) acids are not detected in thi s [...] om SARS-CoV-2 in a nasopharyngeal swab specimen [facility] from individual s suspected of COVID-19 by [...] revoked sooner. Fact Sheet for Healthcare Providers: https://www.Kintera/Documents/Xp ert%20Xpress%20SAR S%20CoV-2/Fact%20S heets/302-3802%20S ARS-COV-2%20HEALTH CARE%20PROVIDERS%2 0FACT%20SHEET.pdf Fact Sheet for Healthcare Patients: https://www.Kintera/Documents/Xp ert%20Xpress%20SAR S%20CoV-2/Fact%20S heets/302-3801%20S ARS-COV-2%20PATIEN T%20FACT%20SHEET.p df Lab Interpretation Normal (test code = 19240-6) [facility]2021-08-31 15:45:18 Test Item Value Reference Interpretation Comments Range SARS-COV2/RT-PCR Negative Negative The SARS-Co V-2 (test code = target nucleic 31395-5) acids are not detected in thi s [...] om SARS-CoV-2 in a [facility] s suspected of COVID-19 by [...] revoked sooner. Fact Sheet for Healthcare Providers: https://www.Kintera/Documents/Xp ert%20Xpress%20SAR S%20CoV-2/Fact%20S heets/302-3802%20S ARS-COV-2%20HEALTH CARE%20PROVIDERS%2 0FACT%20SHEET.pdf Fact Sheet for Healthcare Patients: https://www.Kintera/Documents/Xp ert%20Xpress%20SAR S%20CoV-2/Fact%20S heets/302-3801%20S ARS-COV-2%20PATIEN T%20FACT%20SHEET.p df Lab Interpretation Normal (test code = 46506-6) [facility]2021-08-31 15:45:18 Test Item Value Reference Interpretation Comments Range SARS-COV2/RT-PCR Negative Negative The SARS-Co V-2 (test code = target nucleic 95451-1) acids are not detected in thi s [...] revoked sooner. Fact Sheet for Healthcare Providers: https://www.Kintera/Documents/Xp ert%20Xpress%20SAR S%20CoV-2/Fact%20S heets/302-3802%20S ARS-COV-2%20HEALTH CARE%20PROVIDERS%2 0FACT%20SHEET.pdf Fact Sheet for Healthcare Patients: https://www.Kintera/Documents/Xp ert%20Xpress%20SAR S%20CoV-2/Fact%20S heets/302-3801%20S ARS-COV-2%20PATIEN T%20FACT%20SHEET.p df Lab Interpretation Normal (test code = 98605-5) [facility])2021-08-31 15:45:18 Test Item Value Reference Range Interpretation Comments SARS-COV2/RT-PCR Negative Negative The SARS-Co V-2 target (test code = nucleic acids a re not 3684560) detected in thi s specimen. Negative result [...] revoked sooner. Fact Sheet for Healthcare Providers: https://www.Game Insight m/Documents/Xpert%20Xpress%20SARS%20CoV-2/Fact%20Sheets/302-3802%17IQQE-WEB-8%20 HEALTHCARE%20PROVIDERS%20FACT%20SHEET.pdf Fact Sheet for Healthcare Patients: https://www.SpongeFish/Documents/Xpert%20Xp ress%20SARS%20CoV-2/Fact%20Sheets/3023801%30LZQG-SBQ-3%20PATIENT%20FACT%20SHEET .pdfHIGH SENSITIVITY TROPONIN [id number] 13:23:34 Test Item Value Reference Range Interpretation Comments HIGH SENSITIVITY 10 pg/ml See_Comment [Automated message] TROPONIN I (test code = The system which 1414731) generated this result transmitted ref erence range: <=35. Th e reference range was not used to int erpret this result as normal/abnormal . Video Journalist ID - ADMINThe DIRECTOR OF ENTERPRISE STRATEGY STAT High Sensitivity Troponin-I results should be used in conjunction with other diagnostic information such as ECG, clinical observations and information, and patientsymptoms to aid in the diagnosis of KS. [id number] 13:16:30 Test Item Value Reference Range Interpretation Comments PARTIAL THROMBOPLASTIN TIME 41.6 seconds 22.5-36.0 H (BEAKER) (test code = 760) BASIC METABOLIC [id number] 13:16:09 Test Item Value Reference Range Interpretation [...] S NOT APPLICABLE FOR DIALYSIS PATIEN TS. Video Journalist ID - ADMINPROTHROMBIN TIME/[id number] 13:15:51 Test Item Value Reference Range Interpretation Comments PROTIME (BEAKER) 21.2 seconds 11.9-14.2 H (test code = 759) INR (BEAKER) (test 1.86 See_Comment [Automat ed message] code = 370) The system Georgina Goodman generated this result transmitted ref erence range: <=5.90. The reference range was not used to int erpret this result as normal/abnormal . RECOMMENDED COUMADIN/WARFARIN INR THERAPY RANGESSTANDARD DOSE: 2.0 - 3.0 Includes: PROPHYLAXIS for venous thrombosis, systemic embolization; TREATMENT for venous thrombosis and/or pulmonary embolus.HIGH RISK: Target INR is 2.5-3.5 for patients with mechanical heart valves.LACTIC ACID, [id number] 13:12:46 Test Item Value Reference Range Interpretation Comments LACTATE BLOOD VENOUS (2) (BEAKER) 1.73 mmol/L 0.50-2.20 (test code = 2872) Video Journalist ID - ADMINCBC W/PLT COUNT & AUTO [id number] 12:54:05 Test Item Value Reference Range Interpretation [...] PERCENT (BEAKER) (test code = 2801) FL, [id number] 11:34:00Gastrografin studyReason for exam:->POST-OP PROBLEMpost endocscopy 1 month ago [facility]ACH : 1945 Sex: MFINAL REPORT Gastrografin esophagogram Clinical History: POST-OP PROBLEM Discussion: Gastrografin is given to the patient to drink, without difficulties. The esophageal motility, caliber, and gastroesophageal junction are normal. Esophageal mucosa is suboptimally evaluated, but appears unremarkable. There is no contrast extravasation. Fluoro time: 0.5 minutes Number of images obtained: 6 Signed: Arin Espana MDReport Verified Date/Time: 07/04/2021 11:34:49 Reading Location: [facility] B1 C013X Ortho Consult Reading Room BASIC METABOLIC [id number] 04:39:36 Test Item Value Reference Range Interpretation [...] S NOT APPLICABLE FOR DIALYSIS PATIEN TS. Video Journalist ID - MARZENA MSARS-COV2/RT-PCR ([facility])2021-07-03 17:50:45 Test Item Value Reference Range Interpretation Comments SARS-COV2/RT-PCR Negative Negative The SARS-Co V-2 target (test code = nucleic acids a re not 6011756) detected in thi s specimen. Negative result [...] revoked sooner. Fact Sheet for Healthcare Providers: https://www.Game Insight m/Documents/Xpert%20Xpress%20SARS%20CoV-2/Fact%20Sheets/302-3802%58OSJP-LRH-4%20 HEALTHCARE%20PROVIDERS%20FACT%20SHEET.pdf Fact Sheet for Healthcare Patients: https://www.SpongeFish/Documents/Xpert%20Xp ress%20SARS%20CoV-2/Fact%20Sheets/3023801%31RMBY-NUP-6%20PATIENT%20FACT%20SHEET .pdfD-dimer, [id number] 17:04:25 Test Item Value Reference Range Interpretation Comments D-Dimer, Quant (test <0.27 See_Comment [Autom ated code = 65038-2) message] The system which generated this result [...] range. Lab Interpretation Normal (test code = 77299-3) [facility] CenterD-dimer, luzkaqhrulvg5762-23-16 17:04:25 Test Item Value Reference Range Interpretation Comments D-Dimer, Quant (test <0.27 See_Comment [Autom ated code = 62300-2) message] The system which generated this result [...] range. Lab Interpretation Normal (test code = 51922-3) [facility] CenterD-SHMGP8617-06-77 17:04:25 Test Item Value Reference Range Interpretation [...] of thrombosis is within 95-100% range.BLOOD GAS, [id number] 16:22:57 Test Item Value Reference Range Interpretation [...] code = 1819) 21.0 RAD, CHEST, 2 [id number] 14:40:00Reason for exam:->CHEST PAIN since endoscopy a month agopost endocscopy 1 month ago [facility] 1945 Sex: MFINAL REPORT EXAM: Chest one view COMPARISON: May 15, 2021 CLINICAL HISTORY: Chest pain FINDINGS: Minimal blunting of bilateral posterior costophrenic sulci are noted which may represent small effusions. The cardiac size remains enlarged. There is no evidence of pulmonary consolidation or pneumothorax. The regional osseous structures are unremarkable. Signed: Romeo Ackerman Verified Date/Time: 07/03/2021 14:40:03 [id number] 14:12:25 Test Item Value Reference Range Interpretation Comments Lipase (test code = 3040-3) 22 U/L 8-78 EMERSON (test code = EMERSON) Video Journalist ID - DB Lab Interpretation (test Normal code = 24842-3) [facility] CenterLipase2021-11-15 14:12:25 Test Item Value Reference Range Interpretation Comments Lipase (test code = 3040-3) 22 U/L 8-78 EMERSON (test code = EMESRON) Video Journalist ID - DB Lab Interpretation (test Normal code = 32131-5) [facility] CenterLIPASE2021-11-15 14:12:25 Test Item Value Reference Range Interpretation Comments LIPASE (BEAKER) (test code = 749) 22 U/L 8-78 Video Journalist ID - DBCOMPREHENSIVE METABOLIC [id number] 14:12:24 Test Item Value Reference Range Interpretation [...] S NOT APPLICABLE FOR DIALYSIS PATIEN TS. Video Journalist ID - DBHIGH SENSITIVITY TROPONIN P1342-06-13 14:10:43 Test Item Value Reference Range Interpretation Comments HIGH SENSITIVITY 7 pg/ml See_Comment [Automated message] TROPONIN I (test code = The system which 6925826) generated this result transmitted ref erence range: <=35. Th e reference range was not used to interpr et this result as normal/abnormal . Video Journalist ID - RMThe DIRECTOR OF ENTERPRISE [employer]ATEGY STAT High Sensitivity Troponin-I results should be used in conjunctionwith other diagnostic information such as ECG, clinical observations and information, and patient symptoms to aid in the diagnosis of KS.B-TYPE NATRIURETIC FACTOR (BNP)2021-07-03 14:09:26 Test Item Value Reference Range Interpretation Comments B-TYPE NATRIURETIC PEPTIDE (BEAKER) 515 pg/mL 0-100 H (test code = 700) Video Journalist ID - RMCBC W/PLT COUNT & AUTO [id number] 13:39:07 Test Item Value Reference Range Interpretation [...] (BEAKER) (test code = 2801) HEMOGLOBIN AND [id number] 05:07:16 Test Item Value Reference Range Interpretation Comments HEMOGLOBIN (BEAKER) (test code = 7.9 GM/DL 13.7-17.5 L 410) HEMATOCRIT (BEAKER) (test code = 26.4 % 40.1-51.0 L 411) Video Journalist ID - 6000HEMOGLOBIN AND RYFPTHTBVG8483-93-81 18:44:57 Test Item Value Reference Range Interpretation Comments HEMOGLOBIN (BEAKER) (test code = 8.7 GM/DL 13.7-17.5 L 410) HEMATOCRIT (BEAKER) (test code = 29.7 % 40.1-51.0 L 411) Video Journalist ID - 6000HEMOGLOBIN AND GVUJELQAZF4593-54-66 11:29:37 Test Item Value Reference Range Interpretation Comments HEMOGLOBIN (BEAKER) (test code = 8.3 GM/DL 13.7-17.5 L 410) HEMATOCRIT (BEAKER) (test code = 28.5 % 40.1-51.0 L 411) Video Journalist ID - 6000HEMOGLOBIN AND EDTUAGZDPR7367-22-48 04:51:37 Test Item Value Reference Range Interpretation Comments HEMOGLOBIN (BEAKER) (test code = 7.9 GM/DL 13.7-17.5 L 410) HEMATOCRIT (BEAKER) (test code = 26.9 % 40.1-51.0 L 411) Video Journalist ID - 6000HEMOGLOBIN AND FUKMLIQHYI4259-54-38 16:42:26 Test Item Value Reference Range Interpretation Comments HEMOGLOBIN (BEAKER) (test code = 8.6 GM/DL 13.7-17.5 L 410) HEMATOCRIT (BEAKER) (test code = 29.4 % 40.1-51.0 L 411) Video Journalist ID - 6000BASIC METABOLIC [id number] 09:04:40 Test Item Value Reference Range Interpretation [...] S NOT APPLICABLE FOR DIALYSIS PATIEN TS. Video Journalist ID - ROSIANGHEMOGLOBIN AND BGBLSEJAUR5576-56-28 08:41:52 Test Item Value Reference Range Interpretation Comments HEMOGLOBIN (BEAKER) (test code = 7.6 GM/DL 13.7-17.5 L 410) HEMATOCRIT (BEAKER) (test code = 26.5 % 40.1-51.0 L 411) Video Journalist ID - 6000SARS-COV2/RT-PCR ([facility])2021-05-23 19:59:55 Test Item Value Reference Range Interpretation Comments SARS-COV2/RT-PCR Negative Negative The SARS-Co V-2 target (test code = nucleic acids a re not 5109191) detected in thi s specimen. Negative result [...] revoked sooner. Fact Sheet for Healthcare Providers: https://www.D[employer] Science/Documents/Xpert%20Xpress%20SARS%20CoV-2/Fact%20Sheets/302-3802%60JPQN-ZYB-0%20 HEALTHCARE%20PROVIDERS%20FACT%20SHEET.pdf Fact Sheet for Healthcare Patients: https://www.SpongeFish/Documents/Xpert%20Xp ress%20SARS%20CoV-2/Fact%20Sheets/302-3801%26WVQM-MIW-8%20PATIENT%20FACT%20SHEET .pdfCOMPREHENSIVE METABOLIC [id number] 17:17:21 Test Item Value Reference Range Interpretation [...] S NOT APPLICABLE FOR DIALYSIS PATIEN TS. Video Journalist ID - LUDA [id number] 17:17:21 Test Item Value Reference Range Interpretation Comments LIPASE (BEAKER) (test code = 749) 31 U/L 8-78 Video Journalist ID - LUDA FPT/SYZW9255-73-36 16:55:15 Test Item Value Reference Range Interpretation [...] mechanical heart valves.CBC W/PLT COUNT & AUTO [id number] 16:37:06 Test Item Value Reference Range Interpretation [...] (BEAKER) (test code = 2801) BASIC METABOLIC [id number] 04:38:30 Test Item Value Reference Range Interpretation [...] S NOT APPLICABLE FOR DIALYSIS PATIEN TS. Video Journalist ID - DBCBC W/PLT COUNT & AUTO [id number] 04:21:40 Test Item Value Reference Range Interpretation [...] (BEAKER) (test code = 2801) BASIC METABOLIC [id number] 07:03:04 Test Item Value Reference Range Interpretation [...] S NOT APPLICABLE FOR DIALYSIS PATIEN TS. Video Journalist ID - PIAYA LCBC (HEMOGRAM ONLY)2021-05-17 04:38:47 [...] (BEAKER) (test code = 413) HEMOGLOBIN AND [id number] 20:18:40 Test Item Value Reference Range Interpretation Comments HEMOGLOBIN (BEAKER) (test code = 7.7 GM/DL 13.7-17.5 L 410) HEMATOCRIT (BEAKER) (test code = 25.7 % 40.1-51.0 L 411) Video Journalist ID - 6000BASIC METABOLIC [id number] 06:32:43 Test Item Value Reference Range Interpretation [...] S NOT APPLICABLE FOR DIALYSIS PATIEN TS. Video Journalist ID - MARZENA MCBC W/PLT COUNT & AUTO [id number] 06:09:12 Test Item Value Reference Range Interpretation [...] (BEAKER) (test code = 2801) HEMOGLOBIN AND [id number] 00:13:44 Test Item Value Reference Range Interpretation Comments HEMOGLOBIN (BEAKER) (test code = 8.0 GM/DL 13.7-17.5 L 410) HEMATOCRIT (BEAKER) (test code = 28.1 % 40.1-51.0 L 411) Video Journalist ID - 6000SARS-COV2/RT-PCR ([facility])2021-05-15 18:07:21 Test Item Value Reference Range Interpretation Comments SARS-COV2/RT-PCR Negative Negative The SARS-Co V-2 target (test code = nucleic acids a re not 2428719) detected in thi s specimen. Negative result [...] revoked sooner. Fact Sheet for Healthcare Providers: https://www.[employer] m/Documents/Xpert%20Xpress%20SARS%20CoV-2/Fact%20Sheets/302-3802%97DMQH-BKA-1%20 HEALTHCARE%20PROVIDERS%20FACT%20SHEET.pdf Fact Sheet for Healthcare Patients: https://www.SpongeFish/Documents/Xpert%20Xp ress%20SARS%20CoV-2/Fact%20Sheets/302-3801%95KAHM-ACI-9%20PATIENT%20FACT%20SHEET .pdfHIGH SENSITIVITY TROPONIN [id number] 15:44:19 Test Item Value Reference Range Interpretation Comments HIGH SENSITIVITY 6 pg/ml See_Comment [Automated message] TROPONIN I (test code = The system which 6185614) generated this result transmitted ref erence range: <=35. Th e reference range was not used to interpr et this result as normal/abnormal . Video Journalist ID - DBThe DIRECTOR OF ENTERPRISE STRATEGY STAT High Sensitivity Troponin-I results should be used in conjunctionwith other diagnostic information such as ECG, clinical observations and information, and patient symptoms to aid in the diagnosis of KS.[id number] 15:36:53 Test Item Value Reference Range Interpretation Comments MAGNESIUM (BEAKER) (test code = 2.1 mg/dL 1.6-2.6 627) Video Journalist ID - HUOELOXAUAFJ6519-53-41 15:36:53 Test Item Value Reference Range Interpretation Comments PHOSPHORUS (BEAKER) (test code = 3.3 mg/dL 2.3-4.7 604) Video Journalist ID - DBCOMPREHENSIVE METABOLIC [id number] 15:36:52 Test Item Value Reference Range Interpretation [...] S NOT APPLICABLE FOR DIALYSIS PATIEN TS. Video Journalist ID - DBCBC W/PLT COUNT & AUTO [id number] 15:12:30 Test Item Value Reference Range Interpretation [...] = 2801) RAD, CHEST, 1 VIEW, NON [id number] 13:55:00Reason for exam:->MELENAReason for exam:->GENERAL ILLNESSReason for exam:->GENERALIZED WEAKNESS, NOT ASSOCIATED WITH EXTREMITIESShould this be performed at the bedside?->Yes [facility] : 1945 Sex: MFINAL REPORT INDICATION: MELENAGENERAL ILLNESSGENERALIZED WEAKNESS, NOT ASSOCIATED WITH EXTREMITIES COMPARISON: 05/01/2021 TECHNIQUE: Single frontal view of the chest. FINDINGS: Lungs and pleura: Clear lungs. No effusion.Heart and mediastinum: Normal heart size. Unremarkable mediastinal contours.Osseous structures: No acute abnormality.Other: None. IMPRESSION: No acute intrathoracic abnormality. Signed: Griselda Cordero Verified Date/Time: 05/15/2021 13:55:04 Reading Location: [facility] Radiology Reading Room MAGNESIUM 2021-05-10 07:19:33 Test Item Value Reference Range Interpretation Comments MAGNESIUM (BEAKER) (test code = 2.4 mg/dL 1.6-2.6 627) Video Journalist ID - PIAYA LBASIC METABOLIC [id number] 07:19:32 Test Item Value Reference Range Interpretation [...] S NOT APPLICABLE FOR DIALYSIS PATIEN TS. Video Journalist ID - PIAYA LCBC W/PLT COUNT & AUTO [id number] 06:34:22 Test Item Value Reference Range Interpretation [...] (test code = 2801) UREA NITROGEN, RANDOM [id number] 17:46:02 Test Item Value Reference Range Interpretation Comments UREA NITROGEN URINE (BEAKER) (test 404 mg/dL code = 538) Reference Range: No NormalsOperator ID - BSSODIUM, RANDOM [id number] 17:46:01 Test Item Value Reference Range Interpretation Comments SODIUM URINE (BEAKER) (test code = 101 meq/L 243) Reference Range: No NormalsOperator ID - BSCREATININE, RANDOM [id number] 17:46:00 Test Item Value Reference Range Interpretation Comments CREATININE URINE (BEAKER) (test 61.7 mg/dL code = 375) Reference Range: No NormalsOperator ID - BSURINALYSIS WITH MICROSCOPIC IF [id number] 16:41:11 Test Item Value Reference Range Interpretation [...] = 463) SOURCE(BEAKER) (test code = 2795) Video Journalist ID - [auto]BLOOD [id number] 11:01:01 Test Item Value Reference Range Interpretation Comments CULTURE (BEAKER) (test No growth in 5 days code = 1095) BLOOD [id number] 11:01:01 Test Item Value Reference Range Interpretation Comments CULTURE (BEAKER) (test No growth in 5 days code = 1095) The specimen volume collected for this blood culture was below the optimum (10 mL per bottle or 20 mL total). Use of lower volumes may adversely affect recovery and/or detection times of some organisms.[id number] 05:38:27 Test Item Value Reference Range Interpretation Comments MAGNESIUM (BEAKER) (test code = 2.3 mg/dL 1.6-2.6 627) Video Journalist ID - KAYLEEN LBASIC METABOLIC [id number] 05:38:26 Test Item Value Reference Range Interpretation [...] S NOT APPLICABLE FOR DIALYSIS PATIEN TS. Video Journalist ID - KAYLEEN LPROTHROMBIN TIME/[id number] 05:23:25 Test Item Value Reference Range Interpretation Comments PROTIME (BEAKER) 16.9 seconds 11.9-14.2 H (test code = 759) INR (BEAKER) (test 1.39 See_Comment [Automat ed message] code = 370) The system Georgina Goodman generated this result transmitted ref erence range: <=5.90. The reference range was not used to int erpret this result as normal/abnormal . RECOMMENDED COUMADIN/WARFARIN INR THERAPY RANGESSTANDARD DOSE: 2.0 - 3.0 Includes: PROPHYLAXIS for venous thrombosis, systemic embolization; TREATMENT for venous thrombosis and/or pulmonary embolus.HIGH RISK: Target INR is 2.5-3.5 for patients with mechanical heart valves.CBC W/PLT COUNT & AUTO [id number] 05:22:39 Test Item Value Reference Range Interpretation [...] (BEAKER) (test code = 2801) COMPREHENSIVE METABOLIC [id number] 16:17:38 Test Item Value Reference Range Interpretation [...] S NOT APPLICABLE FOR DIALYSIS PATIEN TS. Video Journalist ID - DBSARS-COV2/RT-PCR ([facility])2021-05-08 12:32:16 Test Item Value Reference Range Interpretation Comments SARS-COV2/RT-PCR (test Negative Not Detected, Negative, code = 4844826) See external report for linked test SARS-COV-2 PERFORMING LAB [facility] (test code = 4232486) Negative result for this test determines that [...] of the Act.Fact Sheet for Healthcare Prov iders:https://www.[employer]/sites/default/files/product/documents/Fact_Sheet_HC _Yzoetdcyb_Fyzf_TZAT-UpF-3.pdfFact Sheet for Healthcare Patients:https://www.[employer]/sites/default/files/product/docume nts/Omdk_Adlgd_Izvgzpzi_Ybyq_QJSW-ZfX-5.pdfPerforming Laboratory:[facility], [place] [address]HDE (HEMOGRAM ONLY) 2021-05-08 06:41:47 Test Item Value [...] code = 413) MYOCARD IMAGING, MULTI, PHARM, [id number] 13:41:00Unlisted Reason for Exam - Click Yes and Enter Reason Below->No [facility] : 1945 Sex: MFINAL REPORT PROCEDURE: Rest/Stress MYOCARDIAL PERFUSION SPECT with regadenoson\\XA9\\ CPT CODE: 40024 INDICATION: Chest pain PROTOCOL: 10.6 mCi of [...] 4. No prior study. Signed: Ishmael Collado [facility] Verified Date/Time: 05/07/2021 13:41:19 CBC (HEMOGRAM ONLY)2021-05-07 [...] (BEAKER) (test code = 413) BASIC METABOLIC [id number] 06:10:10 Test Item Value Reference Range Interpretation [...] S NOT APPLICABLE FOR DIALYSIS PATIEN TS. Video Journalist ID - SHANE GCBC (HEMOGRAM ONLY)2021-05-06 05:35:30 [...] 0-0 H (BEAKER) (test code = 413) [id number] 17:04:33 Test Item Value Reference Range Interpretation Comments PARTIAL THROMBOPLASTIN TIME 75.5 seconds 22.5-36.0 H (BEAKER) (test code = 760) [id number] 08:48:29 Test Item Value Reference Range Interpretation Comments PARTIAL THROMBOPLASTIN TIME 39.1 seconds 22.5-36.0 H (BEAKER) (test code = 760) [id number] 07:02:01 Test Item Value Reference Range Interpretation [...] (BEAKER) (test code = 413) BASIC METABOLIC [id number] 06:36:45 Test Item Value Reference Range Interpretation [...] S NOT APPLICABLE FOR DIALYSIS PATIEN TS. Video Journalist ID - SHANE [id number] 22:11:03 Test Item Value Reference Range Interpretation Comments PARTIAL THROMBOPLASTIN TIME 88.2 seconds 22.5-36.0 H (BEAKER) (test code = 760) PERIPHERAL BLOOD SMEAR - PATHOLOGIST [id number] 18:22:51 Test Item Value Reference Range Interpretation Comments PERIPHERAL SMR Microcytic hypochromic REVIEW (BEAKER) anemia with marked (test code = 1742) anisopoikilocytosis and polychromasia, consistent with history of LEESA. Leukocytosis with predominantly mature granulocytes. No blasts seen. Adequate platelets with unremarkable morphology. [id number]-5 Andreina Schmidt, 112 (BEAKER) (test M.D code [...] (BEAKER) (test code 2+ moderate = 966) [id number] 12:13:05 Test Item Value Reference Range Interpretation Comments PARTIAL THROMBOPLASTIN TIME 55.6 seconds 22.5-36.0 H (BEAKER) (test code = 760) TISSUE [id number] 11:53:42Surgical Pathology Report Case: [id number] Authorizing Provider: Yolanda Lyle MD Collected: 05/03/2021 10:38 AM Ordering Location: [address] Received: 05/03/2021 02:25 PM Service Pathologist: Ciro Diamond MD Specimen: Polyp, Colon - Right/Ascending, x3 PART A RIGHT ASCENDING COLON POLYPX3, POLYPECTOMY:TUBULAR ADENOMA Signing Pathologist Direct Phone Line: [phone] signed by Ciro Diamond MD on 05/04/2021 at 11:53 [id number] colonReceived in formalin labeled the patient's name, accession number and "ascending colon polyp" are multiple chavez soft tissue fragments measuring up to 0.5 cm in greatest dimension which are filtered and submitted in toto in A1.URSULA Martell, HT (ASCP)performedMarina Del Rey Hospital, Department of Pathology, [address] [place] [address], KacfbxLong [facility], [facility] of Pathology, [address] [place] [address], NgpxruLong Beach Memorial Medical [facility], Department of Pathology, [address] [place] [address], [id number] 11:13:03 Test Item Value Reference Range Interpretation Comments PARTIAL THROMBOPLASTIN TIME > seconds 22.5-36.0 HH (BEAKER) (test code = 760) URINALYSIS [id number] 10:30:34 Test Item Value Reference Range Interpretation Comments RBC UA (BEAKER) (test code = 519) 3 /HPF WBC UA (BEAKER) (test code = 520) 2 /HPF BACTERIA (BEAKER) (test code = None Seen 517) MUCUS (BEAKER) (test code = 1574) Moderate CRYSTALS, URINE (BEAKER) (test None Seen code = 1521) AMORPHOUS CRYSTALS (BEAKER) (test Occasional code = 1584) Video Journalist ID - techURINALYSIS WITH MICROSCOPIC IF [id number] 10:23:22 Test Item Value Reference Range Interpretation [...] = 463) SOURCE(BEAKER) (test code = 2795) Video Journalist ID - [auto]BASIC METABOLIC [id number] 06:55:55 Test Item Value Reference Range Interpretation [...] S NOT APPLICABLE FOR DIALYSIS PATIEN TS. Video Journalist ID - SHANE GCBC (HEMOGRAM ONLY)2021-05-04 06:35:01 [...] 0-0 (BEAKER) (test code = 413) BLOOD [id number] 18:01:00 Test Item Value Reference Range Interpretation Comments CULTURE (BEAKER) (test No growth in 5 days code = 1095) BLOOD [id number] 18:00:59 Test Item Value Reference Range Interpretation Comments CULTURE (BEAKER) (test No growth in 5 days code = 1095) TISSUE [id number] 17:23:09Surgical Pathology Report Case: [id number] Authorizing Provider: Yolanda Lyle MD Collected: 05/02/2021 03:08 PM Ordering Location: [address] Received: 05/03/2021 09:22 AM Service Pathologist: [...] INVASIVE CARCINOMA. Signing Pathologist Direct Phone Line: [phone] signed byCiro Diamond MD on 05/03/2021 at 5:23 [id number], [id number] iron deficiency anemiaA. Duod enum tissue, rule [...] evaluated Immunohistochemistry technical testing was performed at [facility], Pathology Laboratory where it was developed [...] qualified to perform high complexity clinical laboratory testing.[facility], Department of Pathology, [address] [place] [address], [place] [address], DlafylLong [facility], Department of Pathology, [address] [place] [address], XrqewuLong Beach [facility], Department of Pathology, [address] [place] [address], XLVAZ METABOLIC PANEL 2021-05-03 06:21:43 Test Item Value [...] S NOT APPLICABLE FOR DIALYSIS PATIEN TS. Video Journalist ID - MARZENA MTSH/FREE T4 IF [id number] 05:55:30 Test Item Value Reference Range Interpretation Comments THYROID STIMULATING HORMONE 0.869 uIU/mL 0.350-4.940 (BEAKER) (test code = 772) Video Journalist ID - MARZENA MB-TYPE NATRIURETIC FACTOR (BNP)2021-05-03 05:32:14 Test Item Value Reference Range Interpretation Comments B-TYPE NATRIURETIC PEPTIDE (BEAKER) 452 pg/mL 0-100 H (test code = 700) Video Journalist ID - MARZENA MCBC (HEMOGRAM ONLY)2021-05-03 05:22:14 [...] CONCENTRATION Adequate (CELLAVISION)(BEAKER) (test code = 3438) Video Journalist ID - Luca Taverasrikanth comments: Slide comments:CBC W/PLT COUNT & AUTO [id number] 11:59:17 Test Item Value Reference Range Interpretation [...] (BEAKER) (test code = 413) BASIC METABOLIC [id number] 09:20:42 Test Item Value Reference Range Interpretation [...] S NOT APPLICABLE FOR DIALYSIS PATIEN TS. Video Journalist ID - KEARA WPT/[id number] 09:05:40 Test Item Value Reference Range Interpretation [...] 2.5-3.5 for patients with mechanical heart valves.SARS-COV2/RT-PCR ([facility]) 2021-05-01 12:34:25 Test Item Value Reference Range Interpretation Comments SARS-COV2/RT-PCR (test Negative Not Detected, Negative, code = 5017029) See external report for linked test SARS-COV-2 PERFORMING LAB [facility] (test code = 8435728) Negative result for this test determines that [...] of the Act.Fact Sheet for Healthcare Prov iders:https://www.[employer]/sites/default/files/product/documents/Fact_Sheet_HC _Noxmzfxen_Fxbp_IJOQ-GnO-6.pdfFact Sheet for Healthcare Patients:https://www.[employer]/sites/default/files/product/docume nts/Odfm_Zvbhc_Ockrktgv_Zskp_ZKSF-PfJ-4.pdfPerforming Laboratory:[facility], [place] [address]XRU, CHEST, 1 VIEW, NON [id number] 09:29:00Reason for exam:->shortness of breathShould this be performed at the bedside?->Yes [facility] : 1945 Sex: MFINAL REPORT Chest AP portable History provided: Shortness of breath Heart size magnified by projection. Lungs are clear and vascularity normal. Signed: Reji Jeffers MDRepsaint john's hospital Verified Date/Time: 05/01/2021 09:29:27 Reading Location: [facility] Radiology Reading Room CBC (HEMOGRAM ONLY)2021-05-01 [...] (BEAKER) (test code = 413) BASIC METABOLIC [id number] 06:24:43 Test Item Value Reference Range Interpretation [...] S NOT APPLICABLE FOR DIALYSIS PATIEN TS. Video Journalist ID - PIAYA LBASIC METABOLIC [id number] 15:17:17 Test Item Value Reference Range Interpretation [...] S NOT APPLICABLE FOR DIALYSIS PATIEN TS. Video Journalist ID - DBCBC W/PLT COUNT & AUTO [id number] 14:42:15 Test Item Value Reference Range Interpretation [...] (BEAKER) (test code = 2801) HEMOGLOBIN AND [id number] 14:41:31 Test Item Value Reference Range Interpretation Comments HEMOGLOBIN (BEAKER) (test code = 9.7 GM/DL 13.7-17.5 L 410) HEMATOCRIT (BEAKER) (test code = 33.4 % 40.1-51.0 L 411) Video Journalist ID - [id number], [id number] 02:24:00Unlisted Reason for Exam - Click Yes and Enter Reason Below->NoWill this procedure require oral co ntrast?->No[facility] : 1945 Sex: MFINAL [...] nonobstructing left renal stone. Signed: Aman Todd MDRepsaint john's hospital Verified Date/Time: 04/30/2021 02:24:34 HEMOGLOBIN [id number] 09:35:28 Test Item Value Reference Range Interpretation Comments HEMOGLOBIN A1C (BEAKER) (test code = 6.6 % 4.3-6.1 H 368) HEPATIC FUNCTION [id number] 05:59:52 Test Item Value Reference Range Interpretation [...] (test code = 38 U/L 6-55 347) Video Journalist ID - MARZENA [id number] 05:59:50 Test Item Value Reference Range Interpretation Comments MAGNESIUM (BEAKER) (test code = 2.9 mg/dL 1.6-2.6 H 627) Video Journalist ID - MARZENA MLIPID [id number] 05:59:50 Test Item Value Reference Range Interpretation [...] Borderline 130-159 High 160-189 Very High >=190 Video Journalist ID - MARZENA MBASIC METABOLIC [id number] 05:59:49 Test Item Value Reference Range Interpretation [...] S NOT APPLICABLE FOR DIALYSIS PATIEN TS. Video Journalist ID - MARZENA MB-TYPE NATRIURETIC FACTOR (BNP)2021-04-29 05:49:20 Test Item Value Reference Range Interpretation Comments B-TYPE NATRIURETIC PEPTIDE (BEAKER) 329 pg/mL 0-100 H (test code = 700) Video Journalist ID - DBPROTHROMBIN TIME/[id number] 05:43:23 Test Item Value Reference Range Interpretation Comments PROTIME (BEAKER) 15.3 seconds 11.9-14.2 H (test code = 759) INR (BEAKER) (test 1.23 See_Comment [Automat ed message] code = 370) The system Georgina Goodman generated this result transmitted ref erence range: <=5.90. The reference range was not used to int erpret this result as normal/abnormal . RECOMMENDED COUMADIN/WARFARIN INR THERAPY RANGESSTANDARD DOSE: 2.0 - 3.0 Includes: PROPHYLAXIS for venous thrombosis, systemic embolization; TREATMENT for venous thrombosis and/or pulmonary embolus.HIGH RISK: Target INR is 2.5-3.5 for patients with mechanical heart valves.CBC W/PLT COUNT & AUTO [id number] 05:29:39 Test Item Value Reference Range Interpretation [...] (BEAKER) (test code = 2801) BASIC METABOLIC [id number] 20:29:00 Test Item Value Reference Range Interpretation [...] S NOT APPLICABLE FOR DIALYSIS PATIEN TS. Video Journalist ID - [id number] 16:56:00 Test Item Value Reference Range Interpretation Comments FERRITIN (BEAKER) (test code = 13.77 ng/mL 5.00-275.00 361) Video Journalist ID - DBHIGH SENSITIVITY TROPONIN [id number] 16:42:00 Test Item Value Reference Range Interpretation Comments HIGH SENSITIVITY 13 pg/ml See_Comment [Automated message] TROPONIN I (test code = The system which 1514095) generated this result transmitted ref erence range: <=35. Th e reference range was not used to int erpret this result as normal/abnormal . Video Journalist ID - DBThe DIRECTOR OF [employer] STAT High Sensitivity Troponin-I results should be used in conjunctionwith other diagnostic information such as ECG, clinical observations and information, and patient symptoms to aid in the diagnosis of KS.HIGH SENSITIVITY TROPONIN [id number] 16:41:00 Test Item Value Reference Range Interpretation Comments HIGH SENSITIVITY 15 pg/ml See_Comment [Automated message] TROPONIN I (test code = The system which 1700132) generated this result transmitted ref erence range: <=35. Th e reference range was not used to int erpret this result as normal/abnormal . Video Journalist ID - DBThe DIRECTOR OF [employer] STAT High Sensitivity Troponin-I results should be used in conjunctionwith other diagnostic information such as ECG, clinical observations and information, and patient symptoms to aid in the diagnosis of [place].IRON, TIBC, % SAT. (WITHOUT FERRITIN)2021-04-28 16:35:00 Test Item Value Reference Range Interpretation Comments IRON (BEAKER) (test code = 547) 22.0 ug/dL 40.0-160.0 L TOTAL IRON BINDING CAPACITY 473 ug/dL 250-450 H (BEAKER) (test code = 769) IRON % SATURATION (2) (BEAKER) 5 % 20-55 L (test code = 2590) Video Journalist ID - DBHEMOGLOBIN AND [id number] 15:56:00 Test Item Value Reference Range Interpretation Comments HEMOGLOBIN (BEAKER) (test code = 9.2 GM/DL 13.7-17.5 L 410) HEMATOCRIT (BEAKER) (test code = 30.6 % 40.1-51.0 L 411) Video Journalist ID - [id number]
[2023-06-03] MEDS ORDERED: MORPHINE 4 MG/ML SYR ONE (06:28)
[2023-06-03] MEDS ORDERED: ONDANSETRON 4 MG/2 ML VIAL ONE (06:28)
[2023-06-03] MEDS ORDERED: FAMOTIDINE 20 MG/2 ML VIAL IV ONE (06:28)
[2023-06-03 06:50] LABS: Absolute Lymphocytes (CBC) 1.8 K/uL (0.7-4.9); Hematocrit 41.6 % (39.6-49.0); Lymphocytes % 17.4 % (15.3-44.8); MCV 92.7 fL (80-100); MPV 9.6 fL (7.6-11.3); Platelets 211 thou/uL (152-406); RBC Red Blood Cell Count 4.49 M/uL (4.33-5.43)
[2023-06-03 07:21] LABS: Specific Gravity 1.021 (1.005-1.030); Urine Bacteria None Seen /HPF (<20); Urine Bilirubin NEGATIVE (Negative); Urine Blood Trace (Negative); Urine Clarity Clear (Clear); Urine Color Light-Yellow (Yellow); Urine Glucose NEGATIVE (Negative); Urine Mucus Slight /HPF (None Seen); Urine Protein NEGATIVE (Negative); Urine RBC <5 /HPF (None Seen); Urine Urobilinogen Normal (Normal)
--- NOTE | 2023-06-03 08:08 | RAD REPORT ---
EXAM DESCRIPTION: CT - Abdomen Pelvis Wo Contrast - 06/03/2023 7:22 am CLINICAL HISTORY: ABD PAIN COMPARISON: Stone Protocol dated 07/11/2022; Abdomen Pelvis W Contrast dated 08/23/2021; Abdomen P alexus W Contrast dated 07/23/2021; Abdomen Pelvis W Contrast dated 03/06/2021 TECHNIQUE: Thin cut axial CT imaging of the abdomen and pelvis was performed without IV contrast. Mu ltiplanar reformats were generated and reviewed. All CT scans are performed using dose optimization technique as appropriate and may include automated exposure control or mA/KV adjustment according to patient size. FINDINGS: No suspicious findings in the lung bases. The liver, spleen, adrenal glands, and pancreas show no suspicious findings. Gallbladder and biliary tree are also without suspicious finding. Exophytic anterior left interpolar 3.5 cm fluid density lesion suggestive of a cyst, stable. Symmetri c renal contour otherwise, without suspicious parenchymal findings within limits of noncontrast techn ique. 3 millimeter left superior pole nonobstructing calculus. No calculi on the right. No hydrourete ronephrosis. No dilated bowel loops. Colonic diverticulosis. Focal wall thickening and adjacent fat stranding surr ounding a diverticulum along the proximal sigmoid colon. No free air, free fluid or other inflammator y stranding. No hernia, mass or bulky lymphadenopathy. The urinary bladder is suboptimally distended limiting evaluation, without significant finding. Mild prostatomegaly. No suspicious bony findings. IMPRESSION: Evidence of acute diverticulitis along the proximal sigmoid colon. No evidence of compli cations. 3 millimeter left superior pole nonobstructing renal calculus. Other stable findings as above. The findings were communicated to Dr. Smith on 06/03/2023 at 08:02 hours.
[2023-06-03 08:19] LABS: Albumin 3.3 g/dL (3.4-5.0); Bilirubin Total 0.4 mg/dL (0.2-1.0); Potassium 3.8 mEq/L (3.5-5.1); Protein, Total 6.7 g/dL (6.4-8.2)
--- NOTE | 2023-06-03 08:27 | EDPHYS ---
Physician Documentation [facility] Name: Oleg Giles Age: 77 yrs Sex: Male : 1945 Arrival Date: 06/03/2023 Time: 05:35 Bed 14 Private MD: ED Physician Walker Smith HPI: 06/03 06:17 This 77 yrs old Male presents to ER via Ambulatory with complaints of Pelvic kdr Pain, Groin Pain. 06:17 Patient presents with 2 to 3 days of left lower quadrant pain. The patient states that kdr the pain started after he was working in the yard pulling weeds. Patient has had a history of diverticulitis but this is not his typical diverticulitis presentation. Patient had some mild nausea but no vomiting. Patient states that his urinary output may be diminished over his normal output and that there has been no change in his bowel habits. He does have a history of constipation. Patient is stable and nontoxic-appearing on initial presentation. Onset: The symptoms/episode began/occurred gradually, 3 day(s) ago. Severity of symptoms: At their worst the symptoms were mild moderate just prior to arrival, in the emergency department the symptoms are unchanged. The patient has not experienced similar symptoms in the past. The patient has not recently seen a physician. Historical: - Allergies: 05:49 No Known Allergies; as6 - Home Meds: 05:49 aspirin 81 mg Oral cap 1 cap once daily [Active]; atorvastatin 20 mg Oral tab 1 tab as6 once daily [Active]; docusate sodium 100 mg Oral tablet 1 tabs daily [Active]; ferrous sulfate 325 mg (65 mg iron) Oral tablet 1 tab daily [Active]; losartan 25 mg Oral tab 1 tab once daily [Active]; Lumigan 0.01 % ophthalmic (eye) drops 1 drop daily [Active]; warfarin 6 mg Oral tablet 1 tab once [Active]; - PMHx: 05:49 Atrial fibrillation; Cerebrovascular accident; Congestive heart failure; Heart Murmur; as6 Hypercholesterolemia; Hypertensive disorder; Pneumonia; - PSHx: 05:49 Cardiac Ablation; cataract repair; 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 - Social history:: Smoking status: Patient denies any tobacco usage or history of. ROS: 06:17 Constitutional: Negative for fever, chills, and weight loss, Eyes: Negative for injury, kdr pain, redness, and discharge, ENT: Negative for injury, pain, and discharge, Neck: Negative for injury, pain, and swelling, Cardiovascular: Negative for chest pain, palpitations, and edema, Respiratory: Negative for shortness of breath, cough, wheezing, and pleuritic chest pain, Back: Negative for injury and pain, : Negative for injury, bleeding, discharge, and swelling, MS/Extremity: Negative for injury and deformity, Skin: Negative for injury, rash, and discoloration, Neuro: Negative for headache, weakness, numbness, tingling, and seizure activity. Psych: Negative for depression, anxiety, suicide ideation, homicidal ideation, and hallucinations, Allergy/Immunology: Negative for hives, rash, and allergies, Endocrine: Negative for neck swelling, polydipsia, polyuria, polyphagia, and marked weight changes, Hematologic/Lymphatic: Negative for swollen nodes, abnormal bleeding, and unusual bruising, 06:17 Abdomen/GI: Positive for abdominal pain, nausea, constipation, Negative for diarrhea, abdominal cramps, abdominal distension, anorexia, dysphagia, hematemesis, black/tarry stool, rectal pain, rectal bleeding, Exam: 06:17 Constitutional: This is a well developed, well nourished patient who is awake, alert, kdr and in mild distress. Head/Face: Normocephalic, atraumatic. Eyes: Pupils equal round and reactive to light, extra-ocular motions intact. Lids and lashes normal. Conjunctiva and sclera are non-icteric and not injected. Cornea within normal limits. Periorbital areas with no swelling, redness, or edema. Neck: Trachea midline, no thyromegaly or masses palpated, and no cervical lymphadenopathy. Supple, full range of motion without nuchal rigidity, or vertebral point tenderness. No Meningismus. Chest/axilla: Normal chest wall appearance and motion. Nontender with no deformity. No lesions are appreciated. Cardiovascular: Regular rate and rhythm with a normal S1 and S2. No gallops, murmurs, or rubs. Normal PMI, no JVD. No pulse deficits. Respiratory: Lungs have equal breath sounds bilaterally, clear to auscultation and percussion. No rales, rhonchi or wheezes noted. No increased work of breathing, no retractions or nasal flaring. Back: No spinal tenderness. No costovertebral tenderness. Full range of motion. Skin: Warm, dry with normal turgor. Normal color with no rashes, no lesions, and no evidence of cellulitis. MS/ Extremity: Pulses equal, no cyanosis. Neurovascular intact. Full, normal range of motion. Neuro: Awake and alert, GCS 15, oriented to person, place, time, and situation. Cranial nerves II-XII grossly intact. Motor strength 5/5 in all extremities. Sensory grossly intact. Cerebellar exam normal. Normal gait. Psych: Awake, alert, with orientation to person, place and time. Behavior, mood, and affect are within normal limits. 06:17 Abdomen/GI: Inspection: obese Bowel sounds: active, all quadrants, Palpation: soft, mild abdominal tenderness, in the left lower quadrant, Vital Signs: 05:47 BP 165 / 91; Pulse 81; Resp 18 S; Temp 98.2(O); Pulse Ox 99% on R/A; Weight 87.09 kg as6 (R); Height 5 ft. 6 in. (R); Pain 8/10; 07:00 BP 147 / 69; Pulse 74; Resp 18 S; Pulse Ox 99% on R/A; as6 08:25 BP 138 / 64; Pulse 65; Resp 19 S; Pulse Ox 99% on R/A; Pain 0/10; kc6 09:01 BP 132 / 59; Pulse 67; Resp 16 S; Pulse Ox 98% on R/A; kc6 05:47 Body Mass Index 30.99 (87.09 kg, 167.64 cm) as6 05:47 Pain Scale: Adult as6 08:25 Pain Scale: Adult kc6 MDM: 06:17 Data reviewed: vital signs, nurses notes, lab test result(s), radiologic studies. kdr 07:10 Patient medically screened. sp3 08:24 ED course: 77-year-old male with acute diverticulitis without perforation or sp3 microperforation on the left side. Laboratory values are all within normal limits. We will administer IV antibiotics and discharge patient on p.o. antibiotics with follow-up to PCP. Patient was signed out to me by night physician and I reexamined patient and discussed his case and results with him and his daughter.. 06/03 06:10 Order name: CBC with Diff; Complete Time: 07:39 kdr 06/03 06:10 Order name: CMP; Complete Time: 08:23 kdr 06/03 06:10 Order name: Lipase; Complete Time: 08:23 kdr 06/03 06:10 Order name: Urinalysis w/ reflexes; Complete Time: 07:39 kdr 06/03 07:02 Order name: CT Abd/Pelvis - Without Contrast; Complete Time: 08:23 as6 06/03 06:11 Order name: IV Saline Lock; Complete Time: 06:59 kdr 06/03 06:11 Order name: Labs collected and sent; Complete Time: 06:59 kdr 06/03 07:14 Order name: Labs - recollect needed: recollect the recollect on the chemistries/ eb severely hemolyzed per Ama; Complete Time: 07:53 Administered Medications: 06:59 Drug: Famotidine IVP 20 mg IVP once; dilute with 10 mL 0.9% NaCl; give over 2 minutes as6 Route: IVP; Site: left hand; 08:25 Follow up: Response: No adverse reaction kc6 06:59 Drug: Ondansetron IVP 4 mg IVP once; over 2 minutes Route: IVP; Site: left hand; as6 08:25 Follow up: Response: No adverse reaction kc6 06:59 Drug: morphine IVP or IV 4 mg IVP once over 4 mins Route: IVP; Infused Over: 4 mins; as6 Site: left hand; 08:25 Follow up: Response: No adverse reaction; Pain is decreased; RASS: Drowsy (-1) kc6 08:39 Drug: Ciprofloxacin IVPB 400 mg 200 ml IVPB once over 60 mins Volume: 200 ml; Route: kc6 IVPB; Infused Over: 60 mins; Site: left hand; 09:41 Follow up: Response: No adverse reaction; IV Status: Completed infusion; IV Intake: kc6 200ml 08:39 Drug: metroNIDAZOLE IVPB 500 mg 100 ml IVPB at 200 ml/hr once over 30 mins Volume: 100 kc6 ml; Route: IVPB; Rate: 200 ml/hr; Infused Over: 30 mins; Site: left hand; 09:26 Follow up: Response: No adverse reaction; IV Status: Completed infusion; IV Intake: kc6 100ml Disposition Summary: 06/03/23 08:26 Discharge Ordered Notes: Location: Home sp3 Condition: Stable sp3 Diagnosis - Acute diverticulitis, abdominal pain sp3 Followup: sp3 - With: Private Physician - When: Upon discharge from the Emergency Department - Reason: Continuance of care Discharge Instructions: - Discharge Summary Sheet sp3 - Diverticulitis sp3 Forms: - Medication Reconciliation Form sp3 - Thank You Letter sp3 - Antibiotic Education sp3 - Prescription Opioid Use sp3 - Patient Portal Instructions sp3 - Leadership Thank You Letter sp3 Prescriptions: - Cipro 500 mg Oral tablet - take 1 tablet ORAL route every 12 hours for 7 days; 10 tablet; Refills: 0, sp3 Product Selection Permitted - Flagyl 500 mg Oral tablet - take 1 tablet ORAL route every 8 hours for 7 days; 21 tablet; Refills: 0, sp3 Product Selection Permitted Signatures: Dispatcher [employer] EDMS Korey Melgar MD MD kdr Botello, Elizabeth eb Patel, Setul, MD MD sp3 Francois Newell RN RN as6 Tiff Hernández RN RN kc6 Corrections: (The following items were deleted from the chart) 07:06 06:11 Abdomen Pelvis W [id number] ordered. EDMS EDMS
--- NOTE | 2023-06-03 08:27 | ER ---
Nurse's Notes [facility] Name: Oleg Giles Age: 77 yrs Sex: Male : 1945 Arrival Date: 06/03/2023 Time: 05:35 Bed 14 Private MD: Diagnosis: Acute diverticulitis, abdominal pain Presentation: 06/03 05:50 Chief complaint: Patient states: LLQ pain that started Saturday. Coronavirus screen: At as6 this time, the client does not indicate any symptoms associated with coronavirus-19. Ebola Screen: No symptoms or risks identified at this time. Initial Sepsis Screen: Does the patient meet any 2 criteria? No. Patient's initial sepsis screen is negative. Does the patient have a suspected source of infection? No. Patient's initial sepsis screen is negative. Risk Assessment: Do you want to hurt yourself or someone else? Patient reports no desire to harm self or others. Onset of symptoms was May 31, 2023. 05:50 Method Of Arrival: Ambulatory as6 05:50 Acuity: ALEXANDREA 3 as6 Triage Assessment: 05:48 General: Appears in no apparent distress. uncomfortable, Behavior is calm, cooperative. as6 Pain: Complains of pain in left lower quadrant Pain radiates to right lower quadrant. EENT: No deficits noted. No signs and/or symptoms were reported regarding the EENT system. Neuro: Level of Consciousness is awake, alert, obeys commands, Oriented to person, place, time, situation. Cardiovascular: Capillary refill < 3 seconds Patient's skin is warm and dry. Respiratory: Airway is patent Trachea midline Respiratory effort is even, unlabored, Respiratory pattern is regular, symmetrical. GI: Reports lower abdominal pain, Patient currently denies nausea, vomiting. : No deficits noted. No signs and/or symptoms were reported regarding the genitourinary system. Derm: Skin is intact, is healthy with good turgor. Musculoskeletal: Circulation, motion, and sensation intact. Historical: - Allergies: 05:49 No Known Allergies; as6 - Home Meds: 05:49 aspirin 81 mg Oral cap 1 cap once daily [Active]; atorvastatin 20 mg Oral tab 1 tab as6 once daily [Active]; docusate sodium 100 mg Oral tablet 1 tabs daily [Active]; ferrous sulfate 325 mg (65 mg iron) Oral tablet 1 tab daily [Active]; losartan 25 mg Oral tab 1 tab once daily [Active]; Lumigan 0.01 % ophthalmic (eye) drops 1 drop daily [Active]; warfarin 6 mg Oral tablet 1 tab once [Active]; - PMHx: 05:49 Atrial fibrillation; Cerebrovascular accident; Congestive heart failure; Heart Murmur; as6 Hypercholesterolemia; Hypertensive disorder; Pneumonia; - PSHx: 05:49 Cardiac Ablation; cataract repair; 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 - Social history:: Smoking status: Patient denies any tobacco usage or history of. Screenin:50 [facility] ED Fall Risk Assessment (Adult) Score/Fall Risk Level 0 - 2 = Low Risk. Abuse as6 screen: Denies threats or abuse. Denies injuries from another. Nutritional screening: No deficits noted. Tuberculosis screening: No symptoms or risk factors identified. Assessment: 07:01 General: see triage assessment . as6 08:01 Reassessment: Patient appears in no apparent distress at this time. No changes from [facility] previously documented assessment. Patient and/or family updated on plan of care and expected duration. Pain level reassessed. Patient is alert, oriented x 3, equal unlabored respirations, skin warm/dry/pink. 08:26 Reassessment: d/c pending IV antibiotic completion. kc6 09:01 Reassessment: Patient appears in no apparent distress at this time. No changes from [facility] previously documented assessment. Patient and/or family updated on plan of care and expected duration. Pain level reassessed. Patient is alert, oriented x 3, equal unlabored respirations, skin warm/dry/pink. Vital Signs: 05:47 BP 165 / 91; Pulse 81; Resp 18 S; Temp 98.2(O); Pulse Ox 99% on R/A; Weight 87.09 kg as6 (R); Height 5 ft. 6 in. (R); Pain 8/10; 07:00 BP 147 / 69; Pulse 74; Resp 18 S; Pulse Ox 99% on R/A; as6 08:25 BP 138 / 64; Pulse 65; Resp 19 S; Pulse Ox 99% on R/A; Pain 0/10; kc6 09:01 BP 132 / 59; Pulse 67; Resp 16 S; Pulse Ox 98% on R/A; kc6 05:47 Body Mass Index 30.99 (87.09 kg, 167.64 cm) as6 05:47 Pain Scale: Adult as6 08:25 Pain Scale: Adult kc6 ED Course: 05:39 Patient arrived in ED. jj6 05:47 Francois Newell RN is Primary Nurse. as6 05:47 Arm band placed on. as6 05:50 Triage completed. as6 05:50 Bed in low position. Call light in reach. as6 05:52 Korey Melgar MD is Attending Physician. kdr 06:59 Inserted saline lock: 22 gauge in left hand, using aseptic technique. Blood collected. as6 07:00 Report received from Francois Newell RN. kc6 07:09 Attending Physician role handed off by Korey Melgar MD sp3 07:09 Walker Smith MD is Attending Physician. sp3 07:24 CT Abd/Pelvis - Without Contrast In Process Unspecified. EDMS 09:41 No provider procedures requiring assistance completed. IV discontinued, intact, kc6 bleeding controlled, No redness/swelling at site. Pressure dressing applied. Administered Medications: 06:59 Drug: Famotidine IVP 20 mg IVP once; dilute with 10 mL 0.9% NaCl; give over 2 minutes as6 Route: IVP; Site: left hand; 08:25 Follow up: Response: No adverse reaction kc6 06:59 Drug: Ondansetron IVP 4 mg IVP once; over 2 minutes Route: IVP; Site: left hand; as6 08:25 Follow up: Response: No adverse reaction kc6 06:59 Drug: morphine IVP or IV 4 mg IVP once over 4 mins Route: IVP; Infused Over: 4 mins; as6 Site: left hand; 08:25 Follow up: Response: No adverse reaction; Pain is decreased; RASS: Drowsy (-1) kc6 08:39 Drug: Ciprofloxacin IVPB 400 mg 200 ml IVPB once over 60 mins Volume: 200 ml; Route: kc6 IVPB; Infused Over: 60 mins; Site: left hand; 09:41 Follow up: Response: No adverse reaction; IV Status: Completed infusion; IV Intake: kc6 200ml 08:39 Drug: metroNIDAZOLE IVPB 500 mg 100 ml IVPB at 200 ml/hr once over 30 mins Volume: 100 kc6 ml; Route: IVPB; Rate: 200 ml/hr; Infused Over: 30 mins; Site: left hand; : Follow up: Response: No adverse reaction; IV Status: Completed infusion; IV Intake: kc6 100ml Medication: 05:51 VIS not applicable for this client. as6 Intake: : IV: 100ml; Total: 100ml. kc6 09:41 IV: 200ml; Total: 300ml. kc6 Outcome: : Discharge ordered by MD. heaton 09:41 Discharged to home ambulatory, with family, kc6 09:41 Condition: improved :41 Discharge instructions given to patient, family, Instructed on discharge instructions, follow up and referral plans. medication usage, Demonstrated understanding of instructions, follow-up care, medications, Prescriptions given X 2, 09:42 Patient left the ED. kc6 Signatures: Dispatcher [employer] EDMS Korey Melgar MD MD kdr Patel, Setul, MD MD sp3 Jeffries, Jennifer jj6 Slawson, Ashby, RN RN as6 Tiff Hernández RN RN kc6
[2023-06-03] MEDS ORDERED: CIPROFLOXACIN 400mg IV 400 MG/200 ML BAG IV ONE (08:44)
[2023-06-03] MEDS ORDERED: METRONIDAZOLE 500mg IVPB 500 MG/100 ML BAG IV ONE (08:44)
[2023-06-03 09:59] VITALS: TEMP 98.2
[2023-06-03 10:02] VITALS: BP 132/59; O2SAT 98
== END 2023-06-03 09:42 | disposition home or self-care (01) ==
LOC: ER 05:35
DX: K57.32 Diverticulitis of large intestine without perforation or abscess without bleeding (principal); I10 Essential (primary) hypertension; I48.91 Unspecified atrial fibrillation; Z79.01 Long term (current) use of anticoagulants; I50.9 Heart failure, unspecified; Z95.2 Presence of prosthetic heart valve; Z79.82 Long term (current) use of aspirin
CPT/HCPCS: 96365; 96368; 85025; 81001; 36415; 83690; 80053; 74176; 96375; 99284; J2405; J0744

== ENCOUNTER 2023-06-17 10:33 | Emergency (ER) | payer OTHER ==
--- OUTSIDE RECORDS SUMMARY | 2023-06-17 10:48 | XMS REPORT | Continuity of Care Document ---
:1945 Author Organization [facility] t Address [address] [place] [address] [place] [id number] Care Team Providers Name Role Phone JASON MACK Primary Care Physician Unavailable ALBA BELTRAN NATASHA Attending Clinician Unavailable [id number] Attending Clinician Unavailable RYLAN JARAMILLO Attending Clinician Unavailable BEN WESLEY Attending Clinician Unavailable Lupillo SHEFFIELD, Ben Attending Clinician Doctor Unassigned, [place] Attending Clinician Unavailable Jackelyn Hernandez Attending Clinician Unavailable Elle SEVILLA, Melisa Attending Clinician Mack JUAREZ, Gabino Whitaker Attending Clinician GABINO PARK Attending Clinician Unavailable Amilcar SHEFFIELD, Alexa Jim Attending Clinician [phone] Jonnie SHEFFIELD, Michael Hendrickson Attending Clinician Floyd SHEFFIELD, Edith Gamboa Attending Clinician Jing SHEFFIELD, Jerrell Dave Attending Clinician Alberto SHEFFIELD, Raz Rodriguez Attending Clinician Bartolo Saldivar MD Attending Clinician Juan Carlos SHEFFIELD, Gabino Attending Clinician GABINO ARNOLD Attending Clinician Unavailable Rocky SHEFFIELD, Darrel Kelly Attending Clinician Ramya SHEFFIELD, Colby Fox Attending Clinician [phone] ELLIS CAMARILLO Attending Clinician Unavailable Maria Teresa SHEFFIELD, eMliza Singh Attending Clinician [phone] Yessica SHEFFIELD, Timmy Miranda Attending Clinician Larry Holbrook CRNA Attending Clinician Doris SHEFFIELD, [place] Nicholas Attending Clinician Haseeb SHEFFIELD, Darlene Attending Clinician Yonas SHEFFIELD, Bernarda Estevez Attending Clinician DARLENE SPARKS Attending Clinician Unavailable Chery SHEFFIELD, Oneil Lesly Attending Clinician Noa Ramirez MD Attending Clinician [phone] NOA RAMIREZ Attending Clinician Unavailable Jacobo Steward MD Kate Attending Clinician [phone] Bar Toledo MD Attending Clinician Raegan Rico MD Attending Clinician Dillon Tenorio MD Attending Clinician Joyce Boss CRNA Attending Clinician [phone] Robinson SHEFFIELD, Jimmy Ramirez Attending Clinician [phone] Katy Nath MD Attending Clinician Jaden Chan CRNA Attending Clinician ALBA BELTRAN NATASHA Admitting Clinician Unavailable [id number] Admitting Clinician Unavailable RYLAN JARAMILLO Admitting Clinician Unavailable BEN WESLEY Admitting Clinician Unavailable EDITH HAMILTON Admitting Clinician Unavailable BERNARDA BIRD Admitting Clinician Unavailable NOA RAMIREZ Admitting Clinician Unavailable BAR [place] Admitting Clinician Unavailable SARAH SCHAFFER Admitting Clinician Katy Patterson MD Admitting Clinician Payers Payer Name Policy Type Policy Number Effective Date Expiration Date Garcia [id number] [facility] [id number] ESTHER RIVERA PLS [facility] [id number] 2021 00:00:00 NEENA [employer] [id number] 2020 O 00:00:00 Problems Condition Condition Condition Status Onset Resolution Last Treating Co mments Source Name Details Category Date Date Treatment Clinician Date 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 Univers (mitral (mitral 0-16 ity of valve valve 00:00: [place] replacemen replacemen 00 Me dical t) t) 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 atrial 0-16 [place] of fibr[place] HFrEF HFrEF Disease Active 2022-08 Univers (heart (heart 0-16 ity of failure failure 00:00: [place] with with 00 Medical reduced reduced Branch ejection ejection fraction) fraction) 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 1-18 [place] [facility] athy athy 00:00: Medical 00 Center Paroxysmal Paroxysmal Disease Recurre [facility] atrial atrial nce 1[facility]18 [facility] fibrillati fibrillati 00:00: Me dical on Center Severe Severe Disease Active [facility] mitral mitral 1-18 [facility] regurgitat regurgitat 00:00: Me dical ion ion 00 Alicia Dehydratio Dehydratio Disease Active [facility] n 1-13 [facility] 00[facility] Center Nausea and Nausea and Disease Active [facility] vomiting vomiting 1-13 [facility] 00:[facility] Center Esophageal Esophageal Disease Active 2020-[address] dysphagia dysphagia 1-15 [facility] 00:00: Medical Center Weakness Weakness Disease Active [facility] 00[facility] Center s/p s/p Disease Recurre [facility] Robotic Robotic nce 9-10 [facility] MVR/LAAL/M MVR/LAAL/M 00:00: Me dical AZE by Dr. TOM by Dr. Marko Bui (09/07/21) (09/07/21) GI bleed GI bleed Disease Active [facility] 00:00: Medical 00 Center Cardiogeni Cardiogeni Disease Recurre [facility] c shock c shock [facility] Hypovolemi Hypovolemi Disease Recurre [facility] c shock c shock [facility] Acute Acute Disease Recurre [facility] pulmonary pulmonary [facility] s edema edema [facility] Hypervolem Hypervolem Disease Active [facility] ia, ia, [facility] unspecifie unspecifie Me dical d d Center hypervolem hypervolem ia type ia type No known No known Disease Unive rs active active ity of problems problems [facility] Allergies, Adverse Reactions, Alerts Allergy Allergy Status Severity Reaction(s) Onset Inactive Treating Comm ents Source Name Type Date Date Clinician APIXABAN Allergy Active 2020-[address] [facility] 0-02 [facility] 00:00: Medical 00 Alicia ASPIRIN Allergy Active [facility] 9[facility]10 [facility] 00:[facility]: Medical 00 Center Aspirin Propensi Active Unknown - 2018-08 ulcers Univ ers ty to See comments 0-21 ity of adverse 00:00: [place] reaction 00 Medical s to Branch drug ASPIRIN DRUG Active Unknown-Cmnt 2018-08 Uni vers INGREDI 0-21 ity of 00:00: [place] [address] [place] [address] NO KNOWN Allergy Active [facility] Family History Family Member Diagnosis Comments Start Date Stop Date Source Natural father Heart disease [facility] Natural father Diabetes [facility] Natural sister Diabetes [facility] Social History Social Habit Start Date Stop Date Quantity Comments Source History SDOH [facility] Alcohol Frequency Medical Center History SDOH [facility] Alcohol Std Drinks Medica l Center History SDOH [facility] Alcohol Binge Medical Man[facility] ter History of tobacco Current smoker Un iversity of use [facility] Gender identity Universit y of [facility] Sexual orientation Univer sity of [facility] Tobacco use and 2023-06-03 2023-06-03 Smokeless Universit y of exposure 00:00:00 00:00:00 tobacco non-user [facility] History of Social 2023-06-03 2023-06-03 Univers ity of function 00:00:00 00:00:00 [facility] Alcohol intake 2021-10-04 2021-10-04 Ex-drinker [facility] 00:00:00 00:00:00 [facility] Tobacco Comment 2021-05-03 2021-05-03 quit [address] [facility] 00:00:00 00:00:00 [facility] Alcohol Comment 2021-05-03 2021-05-03 quit [address] [facility] 00:00:00 00:00:00 [facility] Sex Ass[birth year] AUGUSTIN [place] kes 00:00:00 00:00:00 [facility] Smoking Status Start Date Stop Date Source Ex-smoker 2021-05-03 00:00:00 2021-05-03 00:00:00 [facility] Medications Ordered Filled Start Stop Current Ordering Indication Dosage Frequency Signature Comments Components Source Medication Medication Date Date Medication? Clinician (SIG) Name Name metoprolol 2022-08 Yes 12.5mg Take 0.5 U nivers succinate 0-25 tablets by ity of XL 25 mg 24 00:00[place] 00 the Medical morning. Branch spironolact 2022-08 Yes 25mg Take 1 Univ ers one 25 mg 0-25 tablet by ity o f tablet 00:00: mouth in [place] 00 the Medical morning. Branch metoprolol 2022-08 Yes 12.5mg Take 0.5 U nivers succinate 0-25 tablets by ity of XL 25 mg 24 00:00[place] 00 the Medical morning. Branch spironolact 2022-08 Yes 25mg Take 1 Univ ers one 25 mg 0-25 tablet by ity o f tablet 00:00: mouth in [place] 00 the Medical morning. Branch metoprolol 2022-08 Yes 12.5mg Take 0.5 U nivers succinate 0-25 tablets by ity of XL 25 mg 24 00:00: [place] 00 the Medical morning. Branch spironolact 2022-08 Yes 25mg Take 1 Univ ers one 25 mg 0-25 tablet by ity o f tablet 00:00: mouth in [place] 00 the Medical morning. Branch valsartan 2022-08- No 320mg Take 320 Un amrit 320 mg 0-16 10-16 mg by ity of tablet 13:31: 00:00 mouth [place] 39 :00 daily. Medical Branch valsartan 2022-08- No 320mg Take 320 Un amrit 320 mg 0-16 10-16 mg by ity of tablet 13:31: 00:00 mouth [place] 39 :00 daily. Medical Branch valsartan 2022-08- No 320mg Take 320 Un amrit 320 mg 0-16 10-16 mg by ity of tablet 13:31: 00:00 mouth [place] 39 :00 daily. Medical Branch atorvastati 2022-08 Yes 20mg Take 20 mg Univers n 20 mg 0-16 by mouth ity of tablet 13:31: at [place] [address] bedtime. Medical Branch atorvastati 2022-08 Yes 20mg Take 20 mg Univers n 20 mg 0-16 by mouth ity of tablet 13:31: at [place] [address] bedtime. Medical Branch atorvastati 2022-08 Yes 20mg Take 20 mg Univers n 20 mg 0-16 by mouth ity of tablet 13:31: at [place] [address] bedtime. Medical Branch atorvastati 2022-08 Yes 20mg Take 20 mg Univers n 20 mg 0-16 by mouth ity of tablet 13:31: at [place] [address] bedtime. Medical Branch atorvastati 2022-08 Yes 20mg Take 20 mg Univers n 20 mg 0-16 by mouth ity of tablet 13:31: at [place] [address] bedtime. Medical Branch atorvastati 2022-08 Yes 20mg Take 20 mg Univers n 20 mg 0-16 by mouth ity of tablet 13:31: at [place] [address] bedtime. Medical Branch atorvastati 2022-08 Yes 20mg Take 20 mg Univers n 20 mg 0-16 by mouth ity of tablet 13:31: at [place] [address] bedtime. Medical Branch clopidogrel 2022-08- No 75mg Take 75 mg Univers 75 mg 0-16 10-16 by mouth ity of tablet 13:26: 00:00 daily. [place] 33 :00 Medical Branch clopidogrel 2022-2022- No 75mg Take 75 mg Univers 75 mg 0-16 10-16 by mouth ity of tablet 13:26: 00:00 daily. [place] 33 :00 Medical Branch clopidogrel 2022-08 202- No 75mg Take 75 mg Univers 75 mg 0-16 10-16 by mouth ity of tablet 13:26: 00:00 daily. [place] 33 :00 Medical Branch warfarin 6 2022-08 Yes 6mg Take 1 Unive rs mg tablet 0-16 tablet by ity o f 13:26: mouth [place] 30 every Medical evening. Branch warfarin 6 2022-08 Yes 6mg Take 1 Unive rs mg tablet 0-16 tablet by ity o f 13:26: mouth [place] 30 every Medical evening. Branch warfarin 6 2022-08 Yes 6mg Take 1 Unive rs mg tablet 0-16 tablet by ity o f 13:26: mouth [place] 30 every Medical evening. Branch warfarin 6 2022-08 Yes 6mg Take 1 Unive rs mg tablet 0-16 tablet by ity o f 13:26: mouth [place] 30 every Medical evening. Branch warfarin 6 2022-08 Yes 6mg Take 1 Unive rs mg tablet 0-16 tablet by ity o f 13:26: mouth [place] 30 every Medical evening. Branch warfarin 6 2022-08 Yes 6mg Take 1 Unive rs mg tablet 0-16 tablet by ity o f 13:26: mouth [place] 30 every Medical evening. Branch warfarin 6 2022-08 Yes 6mg Take 1 Unive rs mg tablet 0-16 tablet by ity o f 13:26: mouth [place] 30 every Medical evening. Branch docusate 2022-08 Yes 100mg Take 1 Univer s 100 mg 0-16 capsule by ity of capsule 13:25: mouth in [place] [address] the Medical morning. Branch losartan 2022-08 Yes 25mg Take 1 Univ ers mg tablet 0-16 tablet by ity o f 13:25: mouth in [place] 55 the Medical morning. Branch docusate 2022-08 Yes 100mg Take 1 Univer s 100 mg 0-16 capsule by ity of capsule 13:25: mouth in [place] [address] the Medical morning. Branch losartan 2022-08 Yes 25mg Take 1 Univ ers mg tablet 0-16 tablet by ity o f 13:25: mouth in [place] [address] the Medical morning. Branch docusate 2022-08 Yes 100mg Take 1 Univer s 100 mg 0-16 capsule by ity of capsule 13:25: mouth in [place] [address] the Medical morning. Branch losartan 2022-08 Yes 25mg Take 1 Univ ers mg tablet 0-16 tablet by ity o f 13:25: mouth in [place] [address] the Medical morning. Branch docusate 2022-08 Yes 100mg Take 1 Univer s 100 mg 0-16 capsule by ity of capsule 13:25: mouth in [place] [address] the Medical morning. Branch losartan 2022-08 Yes 25mg Take 1 Univ ers mg tablet 0-16 tablet by ity o f 13:25: mouth in [place] [address] the Medical morning. Branch docusate 2022-08 Yes 100mg Take 1 Univer s 100 mg 0-16 capsule by ity of capsule 13:25: mouth in [place] [address] the Medical morning. Branch losartan 2022-08 Yes 25mg Take 1 Univ ers mg tablet 0-16 tablet by ity o f 13:25: mouth in [place] [address] the Medical morning. Branch docusate 2022-08 Yes 100mg Take 1 Univer s 100 mg 0-16 capsule by ity of capsule 13:25: mouth in [place] [address] the Medical morning. Branch losartan 2022-08 Yes 25mg Take 1 Univ ers mg tablet 0-16 tablet by ity o f 13:25: mouth in [place] [address] the Medical morning. Branch docusate 2022-08 Yes 100mg Take 1 Univer s 100 mg 0-16 capsule by ity of capsule 13:25: mouth in [place] [address] the Medical morning. Branch losartan 2022-08 Yes 25mg Take 1 Univ ers mg tablet 0-16 tablet by ity o f 13:25: mouth in [place] [address] the Medical morning. Branch ferrous 2022-08 Yes 325mg Take 1 Univers sulfate 325 0-16 tablet by ity of mg (65 mg 13:24: [place] 43 the Medical tablet morning. Branch ferrous 2022-08 Yes 325mg Take 1 Univers sulfate 325 0-16 tablet by ity of mg (65 mg 13:24: [place] 43 the Medical tablet morning. Branch ferrous 2022-08 Yes 325mg Take 1 Univers sulfate 325 0-16 tablet by ity of mg (65 mg 13:24: [place] 43 the Medical tablet morning. Branch ferrous 2022-08 Yes 325mg Take 1 Univers sulfate 325 0-16 tablet by ity of mg (65 mg 13:24: [place] 43 the Medical tablet morning. Branch ferrous 2022-08 Yes 325mg Take 1 Univers sulfate 325 0-16 tablet by ity of mg (65 mg 13:24: [place] iron[place] 43 the Medical tablet morning. Branch ferrous 2022-08 Yes 325mg Take 1 Univers sulfate 325 0-16 tablet by ity of mg (65 mg 13:24: [place] 43 the Medical tablet morning. Branch ferrous 2022-08 Yes 325mg Take 1 Univers sulfate 325 0-16 tablet by ity of mg (65 mg 13:24: [place] iron[place] 43 the Medical tablet morning. Branch thiamine 2021- No 100mg QD Take 1 [facility] 100 MG 09-20- tablet [facility] tablet 00:00: 23:59 (100 mg [...] MG 08 :00 daily. Center capsule apixaban 2021-0 2022- No 5mg Q.5D Take [address] [facility] (Eliquis) 5 09-19- by mouth 2 L ukes mg Tab 15:53: 00:00 (two) Medical tablet 08 :00 times Center daily. atorvastati 2021-0 2022- No 20mg QD Take [address] [facility] n (LIPITOR) 2 02- by mouth [place] es 20 MG 15:53: 00:00 daily. Medical tablet 08 :00 Center albuterol 2021-2- No 2.5mg Take 2.[address] (PROVENTIL) 2- 02-01 mg by [facility] 2.5 mg/0.5 15:53: 00:00 nebulizati Medical mL Nebu 08 :00 on every 6 Center nebulizer (six) solution hours as needed for Wheezing. docusate 2021-0 202- No 100mg QD Take [address] sodium 2- 02-01 mg by [facility] (COLACE) 15:53: 00:00 mouth Medical 100 MG 08 :00 daily. Center capsule apixaban 2021-2021- No 5mg Q.5D Take [address] [facility] (Eliquis) 5 09-19- by mouth 2 L ukes mg Tab 15:53: 00:00 (two) Medical tablet 08 :00 times Center daily. atorvastati 2021-0 2- No 20mg QD Take [address] [facility] n (LIPITOR) 2- 02- by mouth [place] 20 MG 15:53: 00:00 daily. Medical tablet 08 :00 Center albuterol 2-0 2022- No 2.5mg Take 2.5 CH I [...] allison hr tablet 00 :00 total[facility] 2 (two) times daily for [...] 1{tbl} Take [address] -acetaminop -08 20- tablet by [place] b[place] (NORCO 00:00: 23:59 mouth Medic al 5-325) 00 :00 every 6 Center 5-325 mg (six) per tablet hours as needed for Pain for up to 7 days. Max Daily Amount: 4 tablets HYDROcodone 2021- No 1{tbl} Take [address] -acetaminop 09-19- tablet by [place] (NORCO 00:00: 23:59 mouth Medic al 5-325) 00 :00 every 6 Center 5-325 mg (six) per tablet hours as needed for Pain for up to 7 days. Max Daily Amount: 4 tablets HYDROcodone 2021- No 1{tbl} Take [address] -acetaminop - 02-08 tablet by [place] b[place] (NORCO 00:00: 23:59 [...] by mouth ity of tablet 09:53: at [place] [address] bedtime. Medical Branch clopidogrel 2018-08 Yes 75mg Take 75 mg Univers 75 mg 0-23 by mouth ity of tablet 09:53: daily. [address] Branch valsartan 2018-08 Yes 320mg Take 320 Uni vers 320 mg 0-23 mg by ity of tablet 09:53: mouth [place] [address] daily. Medical Branch atorvastati 2018-08 Yes 20mg Take 20 mg Univers n 20 mg 0-23 by mouth ity of tablet 09:53: at [place] [address] bedtime. Medical Branch clopidogrel 2018-08 Yes 75mg Take 75 mg Univers 75 mg 0-23 by mouth ity of tablet 09:53: daily. [address] valsartan 2018-08 Yes 320mg Take 320 Uni vers 320 mg 0-23 mg by ity of tablet 09:53: mouth [place] [address] daily. Medical Branch atorvastati 2018-0 Yes 20mg Take 20 mg Univers n 20 mg 9-04 by mouth ity of tablet 14:02: at [place] 00 bedtime. Medical Branch clopidogrel 2019-0 Yes 75mg Take 75 mg Univers 75 mg 9-04 by mouth ity of tablet 14:02: daily. Medical Branch valsartan 2018- Yes 320mg Take 320 Uni vers 320 [...] Yes 4mg 4 mg, Slow Univers (ZOFRAN -04 IV Push, ity of (PF)) 13:19: PRN, [...] lactated 2019 2019- No 1000mL at [address] [facility] IV 04-22 mL/hr, ity of infusion 11:30: 11:42 1,000 mL, Tomas as 1,000 mL 00 :00 IV Medical Infusion, Branch ONCE, 1 dose, Sat04/22/19 at 0630, Routine, DSU Pre-op Immunizations Ordered Filled Immunization Date Status Comments [facility] Immunization Name Name Pneumococcal 2021-07-[address] [facility] Conjugate (Prevnar) 00:00:00 [facility] Pneumococcal 2021-07-[address] [facility] Conjugate (Prevnar) 00:00:00 [facility] Pneumococcal 2021-07-[address] [facility] Conjugate (Prevnar) 00:00:00 [facility] Pneumococcal 2021-07-[address] [facility] Conjugate (Prevnar) 00:00:00 [facility] Influenza Four-QIV 2021-07-[address] [facility] PF 6+MO IM ([id number]) 00:00:00 [facility] Influenza Four-QIV 2021-07-[address] [facility] PF 6+MO IM ([id number]) 00:00:00 [facility] Influenza Four-QIV 2021-07-[address] [facility] PF 6+MO IM ([id number]) 00:00:00 [facility] Influenza Four-QIV 2021-07-[address] [facility] PF 6+MO IM ([id number]) 00:00:00 [facility] Pneumococcal 2021-05-[address] [facility] Conjugate (Prevnar) 00:00:00 [facility] Pneumococcal 2021-05-[address] [facility] Conjugate (Prevnar) 00:00:00 [facility] Pneumococcal 2021-05-[address] [facility] Conjugate (Prevnar) 00:00:00 [facility] Pneumococcal 2021-05-[address] [facility] Conjugate (Prevnar) 00:00:00 [facility] Pneumococcal Unknown Completed [facility] Conjugate (Prevnar) [facility] Pneumococcal Unknown Completed [facility] Conjugate (Prevnar) [facility] Influenza Four-QIV Unknown Completed [facility] PF 6+MO IM ([id number]) [facility] Pneumococcal Unknown Completed [facility] Conjugate (Prevnar) [facility] Pneumococcal Unknown Completed [facility] Conjugate (Prevnar) [facility] Influenza Four-QIV Unknown Completed [facility] PF 6+MO IM ([id number]) [facility] Vital Signs Vital Name Observation Time Observation Value Comments Source WEIGHT 2021-05-06 08:52:00 88.2 kg WEIGHT 2021-05-03 09:54:00 92.08 kg HEIGHT 2021-04-28 15:00:00 165.1 cm Systolic blood 2023-06-03 18:20:00 135 mm[Hg] Univer sity of pressure [facility] Diastolic blood 2023-06-03 18:20:00 64 mm[Hg] Unive rsity of [facility] Heart rate 2023-06-03 18:20:00 64 /min [facility] Oxygen saturation in 2023-06-03 18:20:00 98 /min [facility] Arterial blood by [facility] Pulse oximetry Branch Respiratory rate 2023-06-03 18:18:00 18 /min [facility] height 2023-06-03 18:18:00 167.6 cm [facility] Body weight 2023-06-03 18:18:00 88.089 kg [facility] BMI 2023-06-03 18:18:00 31.34 kg/m2 [facility] HEIGHT 2021-10-04 08:58:00 167.6 cm WEIGHT 2021-10-04 [...] Systolic blood 2019-04-22 13:42:00 140 mm[facility]Hg[facility] 2019-04-22 13:42:00 73 mm[Hg] [facility] Heart rate 2019-04-22 13:42:00 56 /min [facility] Respiratory rate 2019-04-22 13:42:00 16 /min [facility] Oxygen saturation in 2019-04-22 13:42:00 99 /min [facility] Arterial blood by [facility] Pulse oximetry Branch Body temperature 2019-04-22 13:27:00 36.33 [place] [facility] Body height 2019-04-17 16:00:00 162.6 cm [facility] Body weight 2019-04-17 16:00:00 91.173 kg [facility] BMI 2019-04-17 16:00:00 34.50 kg/m2 [facility] Systolic blood 2019-04-22 13:42:00 140 mm[Hg] Univer sity of [facility] Diastolic blood 2019-04-22 13:42:00 73 mm[Hg] Unive rsity of [facility] Heart rate 2019-04-22 13:42:00 56 /min Universi ty [facility] Respiratory rate 2019-04-22 13:42:00 16 /min [facility] Oxygen saturation in 2019-04-22 13:42:00 99 /min University of Arterial blood by [facility] Pulse oximetry Branch Body temperature 2019-04-22 13:27:[address] [facility] Body height 2019-04-17 16:00:00 162.6 cm [facility] Body weight 2019-04-17 16:00:00 91.173 kg [facility] BMI 2019-04-17 16:00:00 34.50 kg/m2 [facility] Systolic blood 2021-10-04 08:58:00 125 mm[Hg] [facility] Diastolic blood 2021-10-04 08:58:00 74 mm[Hg] [facility] Heart rate 2021-10-04 08:58:00 119 /min [facility] Respiratory rate 2021-10-04 08:58:00 16 /min [facility] Body height 2021-10-04 08:58:00 167.6 cm [facility] Body weight 2021-10-04 08:58:00 74.39 kg [facility] BMI 2021-10-04 08:58:00 26.47 kg/m2 [facility] Oxygen saturation in 2021-10-04 08:58:00 100 /min [facility] Arterial blood by Medical Ce nter Pulse oximetry Body temperature 2021-09-19 16:03:00 36.56 Lalita [facility] Procedures Procedure Date / Time Performing Source Performed Clinician TRANSTHORACIC ECHO (TTE) COMPLETE 2023-06-11 Ben Wesley [place] of 19:30:00 [facility] HB ECG ROUTINE & RHYTHM STRIP 2023-06-03 Ben Wesley iversity of 18:15:42 [facility] ASSIGNMENT OF BENEFITS 2023-06-03 Doctor Universit y of 18:00:52 Unassigned, No [facility] REFERRAL- REQUEST/RESPONSE 2023-04-08 Doctor Radames rsity of 05:01:00 Unassigned, No [facility] Branch PHOSPHORUS 2021-09-[address] [facility] 03:23:00 [facility] CALCIUM, IONIZED 2021-09-19 Serenio, Henry [facility] 03:23:00 [facility] CBC W/PLT COUNT & AUTO 2021-09-19 Serenio, Henry [facility] DIFFERENTIAL 03:23:00 [facility] PROTHROMBIN TIME/INR 2021-09-19 Serenio, Henry [facility] 03:23:00 [facility] MAGNESIUM 2021-09-19 Juan Carlos [address] [facility] 03:23:00 [facility] BASIC METABOLIC PANEL 2021-09-19 Gabino Arnold [facility] 03:23:00 [facility] CBC W/PLT COUNT & AUTO 2021-09-19 Serenio, Henry [facility] DIFFERENTIAL 03:23:00 [facility] XR CHEST 1 VIEW PORTABLE / BEDSIDE 2021-09-[address] [facility] 04:55:00 [facility] MAGNESIUM 2021-09-18 Serenio, Henry [facility] BASIC METABOLIC PANEL 2021-09-[address] [facility] 03:25:00 [facility] COMPREHENSIVE METABOLIC PANEL 2021-09-18 Phong Norwood [facility] 03:25:00 [facility] CBC W/PLT COUNT & AUTO 2021-09-18 Serenio, Henry [facility] DIFFERENTIAL 03:25:00 [facility] POCT-GLUCOSE METER 2021-09-17 Arnold, Gabino [facility] 17:26:00 [facility] POCT-GLUCOSE METER 2021-09-17 Arnold, Gabino [facility] 12:28:00 [facility] POCT-GLUCOSE METER 2021-09-17 Arnold, Gabino [facility] 07:58:00 [facility] PHOSPHORUS 2021-09-17 Serenio, Henry [facility] [...] CHEST 1 VIEW PORTABLE / BEDSIDE 2021-09-17 Ericeckroyce, Blaine hael [facility] 04:47:00 [facility] POCT-GLUCOSE METER 2021-09-16 Juan Carlos, Gaibno [facility] 21:47:00 [facility] MAGNESIUM 2021-09-16 Serenio, Henry [facility] 17:37:00 [facility] POCT-GLUCOSE METER 2021-09-16 Arnold, Gabino [facility] 17:17:00 [facility] POCT-GLUCOSE METER 2021-09-16 Juan Carlos, Gabino [facility] 12:41:00 [facility] POCT-GLUCOSE METER 2021-09-16 Arnold, Gabino [facility] 07:47:00 [facility] XR CHEST 1 VIEW PORTABLE / BEDSIDE 2021-09-16 Koeckert, Blaine hael [facility] 05:13:00 [facility] PROTHROMBIN TIME/INR 2021-09-16 Serenio, Henry [facility] 04:03:00 [facility] APTT 2021-09-[address] [facility] 04:03:00 [facility] BASIC METABOLIC PANEL 2021-09-[address] [facility] 04:03:00 [facility] CBC W/PLT COUNT & AUTO [...] [facility] POCT-GLUCOSE METER 2021-09-[address] [facility] 20:46:00 [facility] POCT-GLUCOSE METER 2021-09-15 Juan Carlos Gabino [facility] 17:08:00 [facility] POCT-GLUCOSE METER 2021-09-15 Juan Carlos Gabino [facility] 12:04:00 [facility] POCT-GLUCOSE METER 2021-09-15 Juan Carlos Gabino [facility] 07:15:00 [facility] XR CHEST 1 VIEW PORTABLE / BEDSIDE 2021-09-15 Marce Vegas h [facility] 04:42:00 [facility] MAGNESIUM 2021-09-15 Serfrankio, Henry [facility] 03:54:00 [facility] PROTHROMBIN TIME/INR 2021-09-15 Serenio, Henry [facility] 03:54:00 [facility] BASIC METABOLIC PANEL 2021-09-[address] [facility] 03:54:00 [facility] APTT 2021-09-[address] [facility] 03:54:00 [facility] ECG 12-LEAD 2021-09-15 Luz Elena Kameron A [facility] 01:56:37 [facility] ECG 12-LEAD 2021-09-15 Unknown, Hl7 [facility] 01:56:37 [facility] ECG 12-LEAD 2021-09-15 Luz Elena Kameron A [facility] 01:56:09 [facility] ECG 12-LEAD 2021-09-15 Unknown, Hl7 [facility] 01:56:09 [facility] ECG 12-LEAD 2021-09-[address] [facility] 01:55:34 [facility] ECG 12-LEAD 2021-09-15 Unknown, Hl7 [facility] 01:55:34 [facility] PREPARE LEUKO-REDUCED RBC 2021-09-[address] [facility] 23:55:00 [facility] POCT-GLUCOSE METER 2021-09-[address] [facility] 21:03:00 [facility] MAGNESIUM 2021-09-[address] [facility] 20:55:00 [facility] BASIC METABOLIC PANEL 2021-09-[address] [facility] 09:06:00 [facility] POCT-GLUCOSE METER 2021-09-[address] [facility] 07:23:00 [facility] CBC W/PLT COUNT & AUTO 2021-09-14 Serkaylah, Henry [facility] DIFFERENTIAL 04:56:00 [facility] HEPATIC FUNCTION PANEL 2021-09-14 Serkaylah, Henry [facility] 04:56:00 [facility] [...] CHEST 1 VIEW PORTABLE / BEDSIDE 2021-09-14 DominicJamaica [address]p h [facility] 00:53:00 [facility] POCT-GLUCOSE METER 2021-09-[address] [facility] 22:05:00 [facility] BASIC METABOLIC PANEL 2021-09-13 Serfrankio, Henry [facility] 17:17:00 [facility] MAGNESIUM 2021-09-13 Serenio, Henry [facility] 17:17:00 [facility] POCT-GLUCOSE METER 2021-09-[address] [facility] 17:16:00 [facility] ECG 12-LEAD 2021-09-13 Unknown, Hl7 [facility] 14:33:16 [facility] ECG 12-LEAD 2021-09-13 Unknown, Hl7 [facility] 13:30:46 [facility] ECG 12-LEAD 2021-09-13 Unknown, Hl7 [facility] 13:29:58 [facility] ECG 12-LEAD 2021-09-[address] [facility] 13:29:37 [facility] ECG 12-LEAD 2021-09-13 Unknown, Hl7 [facility] 13:29:37 [facility] ECG 12-LEAD 2021-09-13 Unknown, Hl7 [facility] 13:29:07 [facility] ECG 12-LEAD 2021-09-13 Unknown, Hl7 [facility] 13:24:42 [facility] ECG 12-LEAD 2021-09-[address] [facility] 12:51:16 [facility] ECG 12-LEAD 2021-09-13 Unknown, Hl7 [facility] 12:51:16 [facility] ECG 12-LEAD 2021-09-13 Unknown, Hl7 [facility] 12:50:38 [facility] ECG 12-LEAD 2021-09-13 Unknown, Hl7 [facility] 12:46:16 [facility] POCT-GLUCOSE METER 2021-09-[address] [facility] 11:06:00 [facility] 2D ECHO W/ DOPPLER (CW/PW/COLOR) 2021-09-[address] 10:29:22 [facility] TRANSFUSE LEUKO-REDUCED RED BLOOD 2021-09-[address] [facility] CELLS 10:15:00 [facility] BASIC METABOLIC PANEL 2021-09-[address] [facility] 10:15:00 [facility] MAGNESIUM 2021-09-[address] [facility] 10:15:00 [facility] TYPE AND SCREEN, AUTOMATED 2021-09-13 Herve [facility]ieves [facility] 08:41:00 [facility] POCT-GLUCOSE METER 2021-09-[address] [facility] 07:48:00 [facility] XR CHEST 1 VIEW PORTABLE / BEDSIDE 2021-09-13 SerJamaica [address]rianp h [facility] 02:03:00 [facility] CBC W/PLT COUNT & AUTO 2021-09-13 Serkaylah, Henry [facility] DIFFERENTIAL 01:50:00 [facility] HEPATIC FUNCTION PANEL 2021-09-13 Serenio, Henry [facility] 01:50:00 [facility] PHOSPHORUS 2021-09-13 Serenio, Henry [facility] 01:50:00 [facility] CALCIUM, IONIZED 2021-09-13 Serenio, Henry [facility] 01:50:00 [facility] CBC W/PLT COUNT & AUTO 2021-09-13 Serfrankio, Henry [facility] DIFFERENTIAL 01:50:00 [facility] BASIC METABOLIC PANEL 2021-09-13 Serfrankio, Henry [facility] 01:50:00 [facility] MAGNESIUM 2021-09-13 Serfrankio, Henry [facility] 01:50:00 [facility] APTT 2021-09-13 Serenio, Henry [facility] 01:50:00 [facility] BLOOD GAS, VENOUS 2021-09-13 Dax, Moy [facility] 01:50:00 [facility] PROTHROMBIN TIME/INR 2021-09-13 Dax, Moy [facility] 01:50:00 [facility] HC VENOUS DOPPLER EXT UNI 2021-09-12 Serfrankio, Henry [facility] 22:09:00 [facility] POCT-GLUCOSE METER 2021-09-12 Sagar-Joshua, Raz [facility] 21:56:00 [facility] POCT-GLUCOSE METER 2021-09-12 Sagar-Lewis, Raz [facility] 16:06:00 [facility] MAGNESIUM 2021-09-[address] [facility] 11:57:00 [facility] POTASSIUM 2021-09-12 Zully Lagunaan A [facility] 11:57:00 [facility] PHOSPHORUS 2021-09-12 Luz Elena Kameron A [facility] 11:57:00 [facility] CALCIUM, IONIZED 2021-09-12 Luz Elena Kameron A [facility] 11:57:00 [facility] POCT-GLUCOSE METER 2021-09-12 Sagar-Lewis, Raz [facility] 11:18:00 [facility] POCT-GLUCOSE METER 2021-09-12 Keith-Joshua, Raz [facility] 07:50:00 [facility] ECG 12-LEAD 2021-09-12 Unknown, Hl7 [facility] 07:21:58 [facility] BLOOD GAS, ARTERIAL 2021-09-12 Serkaylah Henry [facility] [...] [facility] PT/APTT 2021-09-12 Serenio, Henry [facility] 03:20:00 [facility] LACTIC ACID, ARTERIAL 2021-09-12 Serenio, Henry [facility] 03:20:00 [facility] XR CHEST 1 VIEW PORTABLE / BEDSIDE 2021-09-12 Marce Vegas h [facility] 01:10:00 [facility] HC VENOUS DOPPLER EXT UNI 2021-09-[address] [facility] 23:31:00 [facility] BASIC METABOLIC PANEL 2021-09-11 Serenio, Henry [facility] 20:26:00 [facility] MAGNESIUM 2021-09-11 Serenio, Henry [facility] 20:26:00 [facility] HEMOGLOBIN AND HEMATOCRIT 2021-09-11 Serenio, Henry [facility] 20:26:00 [facility] POCT-GLUCOSE METER 2021-09-11 Sagar-Joshua Raz [facility] 20:25:00 [facility] POCT-GLUCOSE METER 2021-09-11 Sagar-Joshua Raz [facility] 16:07:00 [facility] BASIC METABOLIC PANEL 2021-09-11 Serenio, Henry [facility] 12:13:00 [facility] MAGNESIUM 2021-09-11 Serenio, Henry [facility] 12:13:00 [facility] OXYGEN SATURATION, MEASURED 2021-09-[address] [facility] 12:13:00 [facility] PHOSPHORUS 2021-09-11 Luz Elena Kameron A [facility] 12:13:00 [facility] CALCIUM, IONIZED 2021-09-11 Luz Elena Kameron A [facility] 12:13:00 [facility] POCT-GLUCOSE METER 2021-09-11 Jing, Jerrell [facility] 11:00:00 [facility] POCT-GLUCOSE METER 2021-09-11 Jing, Jerrell [facility] 08:18:00 [facility] OXYGEN SATURATION, MEASURED 2021-09-11 Jing, Jerrell [facility] 06:13:00 [facility] CBC W/PLT COUNT & AUTO 2021-09-11 [...] 2021-09-10 Jing, Jerrell [facility] 22:06:00 [facility] POCT-GLUCOSE METER 2021-09-10 Jing, Jerrell [facility] 16:49:00 [facility] OXYGEN SATURATION, MEASURED 2021-09-10 Emma Bland [...] 2021-09-[address] [facility] 12:58:00 [facility] POCT-GLUCOSE METER 2021-09-10 Jing, Jerrell [facility] 11:14:00 [facility] ECG 12-LEAD 2021-09-[address] [facility] 10:42:11 [facility] ECG 12-LEAD 2021-09-10 Unknown, Hl7 [facility] 10:42:11 [facility] ECG 12-LEAD 2021-09-10 Unknown, Hl7 [facility] 10:41:54 [facility] POCT-GLUCOSE METER 2021-09-10 Jing, Jerrell [facility] 07:42:00 [facility] BLOOD GAS, ARTERIAL 2021-09-10 Serenio, Henry [...] CHEST 1 VIEW PORTABLE / BEDSIDE 2021-09-10 Serenisanto, Ralp h [facility] 01:45:00 [facility] PREPARE LEUKO-REDUCED RBC 2021-09-09 Otuonye, Gene [facility] 23:54:00 [facility] POCT-GLUCOSE METER 2021-09-09 Jing, Jerrell [facility] 22:06:00 [facility] BASIC METABOLIC PANEL 2021-09-09 Serenio, Henry [...] 2021-09-[address] [facility] 09:44:00 [facility] OXYGEN SATURATION, MEASURED 2021-09-[address] [facility] 05:07:00 [facility] ECG 12-LEAD 2021-09-09 Unknown, Hl7 [facility] 04:50:00 [facility] ECG 12-LEAD 2021-09-[address] [facility] 04:48:23 [facility] ECG 12-LEAD 2021-09-09 Unknown, Hl7 [facility] 04:48:23 [facility] ECG 12-LEAD 2021-09-09 Unknown, Hl7 [facility] 04:47:37 [facility] POCT-GLUCOSE METER 2021-09-[address] [facility] 02:53:00 [facility] COMPREHENSIVE METABOLIC PANEL 2021-09-09 [address] [facility] 02:46:00 [facility] MAGNESIUM 2021-09-[address] [facility] 02:46:00 [facility] PHOSPHORUS 2021-09-[address] [facility] 02:46:00 [facility] CBC (HEMOGRAM ONLY) 2021-09-[address] [facility] 02:46:00 [facility] BLOOD GAS, ARTERIAL 2021-09-[address] [facility] 02:46:00 [facility] CALCIUM, IONIZED 2021-09-[address] [facility] 02:46:00 [facility] XR CHEST 1 VIEW PORTABLE / BEDSIDE 2021-09-[address] [facility] 00:53:00 [facility] PREPARE LEUKO-REDUCED RBC 2021-09-[address] [facility] 23:55:00 [facility] POCT-GLUCOSE METER 2021-09-08 Jing, Jerrell [facility] 21:03:00 [facility] POCT-GLUCOSE METER 2021-09-08 Jing, Jerrell [facility] 18:03:00 [facility] CBC W/PLT COUNT & AUTO 2021-09-[address] [facility] DIFFERENTIAL 15:03:00 [facility] CALCIUM, IONIZED 2021-09-08 Zully Lagunaan A [facility] 15:03:00 [facility] POTASSIUM 2021-09-08 Zully Lagunaan A [facility] 15:03:00 [facility] MAGNESIUM 2021-09-[address] [facility] 15:03:00 [facility] CBC W/PLT COUNT & AUTO 2021-09-[address] [facility] DIFFERENTIAL 15:03:00 [facility] POCT-GLUCOSE METER 2021-09-08 Jing, Jerrell [facility] 12:04:00 [facility] TRANSFUSE LEUKO-REDUCED RED BLOOD 2021-09-08 Sebastiánonyrajesh, Gene [facility] CELLS 11:50:00 [facility] POCT-GLUCOSE METER 2021-09-08 Jing, Jerrell [facility] 10:20:00 [facility] HEMOGLOBIN AND HEMATOCRIT 2021-09-08 Hopkins, Cecile [facility] 10:18:00 [facility] 2D ECHO W/ DOPPLER (CW/PW/COLOR) 2021-09-08 Evonne Ryder a [facility] 09:30:34 [facility] OXYGEN SATURATION, MEASURED 2021-09-08 Otuonye, Gene [facility] 09:05:00 [facility] POCT-GLUCOSE METER 2021-09-08 Jing, Jerrell [facility] 09:00:00 [facility] LACTIC ACID, ARTERIAL 2021-09-08 [place], Uselyn [facility] 08:58:00 [facility] BLOOD GAS, ARTERIAL 2021-09-08 Otuonye, Gene [facility] 08:58:00 [facility] POCT-GLUCOSE METER 2021-09-08 Jing, Jerrell [facility] 08:09:00 [facility] POCT-GLUCOSE METER 2021-09-08 Jing, Jerrell [facility] 06:03:00 [facility] LACTIC ACID, ARTERIAL 2021-09-08 [place], Uselyn [facility] 05:53:00 [facility] RRL CRITICAL LABS 2021-09-08 [place], Uselyn [facility] (ABG,NA,K,H&H,GLUCOSE) 05:53:00 [facility] enter BLOOD GAS, ARTERIAL 2021-09-08 [place], Uselyn [facility] 05:53:00 [facility] SODIUM NA-STAT LAB 2021-09-08 [place], Uselyn [facility] 05:53:00 [facility] POTASSIUM-STAT LAB 2021-09-08 [place], Uselyn [facility] 05:53:00 [facility] GLUCOSE-STAT LAB 2021-09-08 [place], Uselyn [facility] 05:53:00 [facility] HGB/HCT (H&H) - STAT LAB 2021-09-08 [place], Uselyn [facility] 05:53:00 [facility] POCT-GLUCOSE METER 2021-09-08 Jing, Jerrell [facility] 05:03:00 [facility] POCT-GLUCOSE METER 2021-09-08 Jing, Jerrell [facility] 04:15:00 [facility] OXYGEN SATURATION, MEASURED 2021-09-08 [place], Uselyn [facility] 04:03:00 [facility] BLOOD GAS, ARTERIAL 2021-09-08 [place], Uselyn [facility] 04:02:00 [facility] RRL CRITICAL LABS 2021-09-08 [place], Uselyn [facility] (ABG,NA,K,H&H,GLUCOSE) 04:02:00 [facility] SODIUM NA-STAT LAB 2021-09-08 [place], Uselyn [facility] 04:02:00 [facility] POTASSIUM-STAT LAB 2021-09-08 [place], Uselyn [facility] 04:02:00 [facility] GLUCOSE-STAT LAB 2021-09-08 [place], Uselyn [facility] 04:02:00 [facility] HGB/HCT (H&H) - STAT LAB 2021-09-08 [place], Uselyn [facility] 04:02:00 [facility] POCT-GLUCOSE METER 2021-09-[address] [facility] 02:59:00 [facility] CBC W/PLT COUNT & AUTO 2021-09-08 Jean-Claudejo Bashar [facility] DIFFERENTIAL 02:31:[address] [facility] CBC W/PLT COUNT & AUTO 2021-09-[address] [facility] Bash[facility] DIFFER[facility] 02:31:[address] [facility] COMPREHENSIVE METABOLIC PANEL 2021-09-08 [address] [facility] 02:31:00 [facility] MAGNESIUM 2021-09-[address] [facility] 02:31:00 [facility] PHOSPHORUS 2021-09-[address] [facility] 02:31:00 [facility] CALCIUM, IONIZED 2021-09-08 [place], Uselyn [facility] 02:31:00 [facility] LACTIC ACID, ARTERIAL 2021-09-08 [place], Uselyn [facility] 02:30:00 [facility] RRL CRITICAL LABS 2021-09-08 [place], Uselyn [facility] (ABG,NA,K,H&H,GLUCOSE) 02:30:00 [facility] enter BLOOD GAS, ARTERIAL 2021-09-08 [place], Uselyn [facility] 02:30:00 [facility] SODIUM NA-STAT LAB 2021-09-08 [place], Uselyn [facility] 02:30:00 [facility] POTASSIUM-STAT LAB 2021-09-08 [place], Uselyn [facility] 02:30:00 [facility] GLUCOSE-STAT LAB 2021-09-08 [place], Uselyn [facility] 02:30:00 [facility] HGB/HCT (H&H) - STAT LAB 2021-09-08 [place], Uselyn [facility] 02:30:00 [facility] POCT-GLUCOSE METER 2021-09-08 Jing, Jerrell [facility] 02:11:00 [facility] POCT-GLUCOSE METER 2021-09-08 Jing, Jerrell [facility] 01:00:00 [facility] OXYGEN SATURATION, MEASURED 2021-09-08 [place], Uselyn [facility] 00:55:00 [facility] XR CHEST 1 VIEW PORTABLE / BEDSIDE 2021-09-08 Blaine Perez hael [facility] 00:43:00 [facility] POCT-GLUCOSE METER 2021-09-07 Jing, Jerrell [facility] 23:59:00 [facility] RRL CRITICAL LABS 2021-09-[address] [facility] (ABG,NA,K,H&H,GLUCOSE) 23:54:00 [facility] enter BLOOD GAS, ARTERIAL 2021-09-07 [place], Uselyn [facility] 23:54:00 [facility] SODIUM NA-STAT LAB 2021-09-07 Delmi, Uselyn [facility] 23:54:00 [facility] POTASSIUM-STAT LAB 2021-09-07 [place], Uselyn [facility] 23:54:00 [facility] GLUCOSE-STAT LAB 2021-09-07 [place], Uselyn [facility] 23:54:00 [facility] HGB/HCT (H&H) - STAT LAB 2021-09-07 [place], Uselyn [facility] 23:54:00 [facility] POCT-GLUCOSE METER 2021-09-07 Jing, Jerrell [facility] 23:04:00 [facility] POCT-GLUCOSE METER 2021-09-07 Jing, Jerrell [facility] 22:03:00 [facility] APTT 2021-09-[address] [facility] 21:58:00 [facility] LACTIC ACID, ARTERIAL 2021-09-07 [place], Uselyn [facility] 21:58:00 [facility] RRL CRITICAL LABS 2021-09-07 [place], Uselyn [facility] (ABG,NA,K,H&H,GLUCOSE) 21:57:00 [facility] enter BLOOD GAS, ARTERIAL 2021-09-07 [place], Uselyn [facility] 21:57:00 [facility] SODIUM NA-STAT LAB 2021-09-07 [place], Uselyn [facility] 21:57:00 [facility] POTASSIUM-STAT LAB 2021-09-07 [place], Uselyn [facility] 21:57:00 [facility] GLUCOSE-STAT LAB 2021-09-07 [place], Uselyn [facility] 21:57:00 [facility] HGB/HCT (H&H) - STAT LAB 2021-09-07 [place], Uselyn [facility] 21:57:00 [facility] POCT-GLUCOSE METER 2021-09-[address] [facility] 20:34:00 [facility] BASIC METABOLIC PANEL 2021-09-07 [place], Uselyn [facility] 20:27[facility]00 [facility]-09-07 [place], Uselyn [facility] (ABG,NA,K,H&H,GLUCOSE) 20:27:00 [facility] enter BLOOD GAS, ARTERIAL 2021-09-07 [place], Uselyn [facility] 20:27:00 [facility] SODIUM NA-STAT LAB 2021-09-07 [place], Uselyn [facility] 20:27:00 [facility] POTASSIUM-STAT LAB 2021-09-07 [place], Uselyn [facility] 20:27:00 [facility] GLUCOSE-STAT LAB 2021-09-07 [place], Uselyn [facility] 20:27:00 [facility] HGB/HCT (H&H) - STAT LAB 2021-09-07 [place], Uselyn [facility] 20:27:00 [facility] OXYGEN SATURATION, MEASURED 2021-09-[address] [facility] 19:02:00 [facility] BLOOD GAS, ARTERIAL 2021-09-[address] [facility] 18:48:00 [facility] LACTIC ACID, ARTERIAL 2021-09-[address] [facility] 18:48:00 [facility] CBC (HEMOGRAM ONLY) 2021-09-[address] [facility] 18:48:00 [facility] ECG 12-LEAD 2021-09-07 Kodakandcathie, [facility] 18:45:09 [facility] ECG 12-LEAD 2021-09-07 Unknown, Hl7 [facility] 18:45:09 [facility] POCT-GLUCOSE METER 2021-09-07 Jing, [facility]rell [facility] 18:17:00 [facility] LACTIC ACID, ARTERIAL 2021-09-[address] [facility] 17:07:00 [facility] RRL CRITICAL LABS 2021-09-[address] [facility] (ABG,NA,K,H&H,GLUCOSE) 17:07:00 [facility] enter BLOOD GAS, ARTERIAL 2021-09-[address] [facility] 17:07:00 [facility] SODIUM NA-STAT LAB 2021-09-[address] [facility] 17:07:00 [facility] POTASSIUM-STAT LAB 2021-09-[address] [facility] 17:07:00 [facility] GLUCOSE-STAT LAB 2021-09-[address] [facility] 17:07:00 [facility] HGB/HCT (H&H) - STAT LAB 2021-09-[address] [facility] 17:07:00 [facility] TRANSFUSE LEUKO-REDUCED RED BLOOD 2021-09-[address] [facility] CELLS 16:52:00 [facility] XR CHEST 1 VIEW PORTABLE / BEDSIDE 2021-09-[address] [facility] 15:16:00 [facility] CBC W/PLT COUNT & AUTO 2021-09-[address] [facility] DIFFERENTIAL 15:15:00 [facility] BASIC METABOLIC PANEL 2021-09-[address] [facility] 15:15:00 [facility] MAGNESIUM 2021-09-[address] [facility] 15:15:00 [facility] BLOOD GAS, ARTERIAL 2021-09-[address] [facility] 15:15:00 [facility] CBC W/PLT COUNT & AUTO 2021-09-07 Kodakandla, AUGUSTIN [facility] DIFFERENTIAL 15:15:00 [facility] PROTHROMBIN TIME/INR 2021-09-07 Kod[place]andla, [facility]00 [facility] PT/APTT 2021-09-07 Kodakandla, [facility] 15:15:00 [facility] FIBRINOGEN 2021-09-07 Kodakandla, [facility] 15:15:00 [facility] LACTIC ACID, ARTERIAL 2021-09-07 Kodakandcathie, [facility] 15:15:00 [facility] PHOSPHORUS 2021-09-07 Kodakandla, [facility] 15:15:00 [facility] OXYGEN SATURATION, MEASURED 2021-09-[address] [facility] 15:15:00 [facility] PREPARE RBC 2021-09-[address] [facility] 14:47:00 [facility] PREPARE PLASMA 2021-09-[address] [facility] [facility] 14:47:00 [facility] ANESTHESIA PERIPHERAL BLOCK 2021-09-[address] [facility] 14:40:56 [facility] RRL CRITICAL LABS 2021-09-[address] [facility] (ABG,NA,K,H&H,GLUCOSE) 13:26:59 [facility] enter CALCIUM, IONIZED 2021-09-[address] [facility] 13:26:59 [facility] BLOOD GAS, ARTERIAL 2021-09-[address] [facility] 13:26:59 [facility] SODIUM NA-STAT LAB 2021-09-[address] [facility] [facility] 13:26:59 [facility] POTASSIUM-STAT LAB 2021-09-[address] [facility] [facility] 13:26:59 [facility] GLUCOSE-STAT LAB 2021-09-[address] [facility] 13:26:59 [facility] HGB/HCT (H&H) - STAT LAB 2021-09-[address] [facility] 13:26:59 [facility] POCT-ACT 2021-09-[address] [facility] 13:03:00 [facility] PLATELET COUNT 2021-09-[address] [facility] 12:59:25 [facility] CBC W/PLT COUNT & AUTO 2021-09-[address] [facility] DIFFERENTIAL 12:59:00 [facility] CBC W/PLT COUNT & AUTO 2021-09-07 Koeckert, Larry [facility] DIFFERENTIAL 12:59:00 [facility] RRL CRITICAL LABS 2021-09-[address] [facility] (ABG,NA,K,H&H,GLUCOSE) 12:42:36 [facility] enter CALCIUM, IONIZED 2021-09-[address] [facility] 12:42:36 [facility] PROTHROMBIN TIME/INR 2021-09-07 Darrel [facility]idalgo [facility] 12:42:36 [facility] APTT 2021-09-[address] [facility] 12:42:36 [facility] FIBRINOGEN 2021-09-[address] [facility] 12:42:36 [facility] BLOOD GAS, ARTERIAL 2021-09-[address] [facility] 12:42:36 [facility] SODIUM NA-STAT LAB 2021-09-[address] [facility] 12:42:36 [facility] POTASSIUM-STAT LAB 2021-09-[address] [facility] 12:42:36 [facility] GLUCOSE-STAT LAB 2021-09-[address] [facility] 12:42:36 [facility] HGB/HCT (H&H) - STAT LAB 2021-09-[address] [facility] 12:42:36 [facility] POCT-ACT 2021-09-[address] [facility] 12:15:00 [facility] RRL CRITICAL LABS 2021-09-[address] [facility] (ABG,NA,K,H&H,GLUCOSE) 12:13:19 [facility] enter BLOOD GAS, ARTERIAL 2021-09-[address] [facility] 12:13:19 [facility] SODIUM NA-STAT LAB 2021-09-[address] [facility] 12:13:19 [facility] POTASSIUM-STAT LAB 2021-09-[address] [facility] 12:13:19 [facility] GLUCOSE-STAT LAB 2021-09-[address] [facility] 12:13:19 [facility] HGB/HCT (H&H) - STAT LAB 2021-09-[address] [facility] 12:13:19 [facility] TISSUE EXAM 2021-09-[address] [facility] 12:07:00 [facility] POCT-ACT 2021-09-[address] [facility] 11:41:00 [facility] LACTIC ACID, ARTERIAL 2021-09-[address] [facility] 11:39:09 [facility] RRL CRITICAL LABS 2021-09-[address] [facility] (ABG,NA,K,H&H,GLUCOSE) 11:39:04 [facility] enter BLOOD GAS, ARTERIAL 2021-09-[address] [facility] 11:39:04 [facility] SODIUM NA-STAT LAB 2021-09-[address] [facility] 11:39:04 [facility] POTASSIUM-STAT LAB 2021-09-[address] [facility] 11:39:04 [facility] GLUCOSE-STAT LAB 2021-09-[address] [facility] 11:39:04 [facility] HGB/HCT (H&H) - STAT LAB 2021-09-[address] [facility] 11:39:04 [facility] MISCELLANEOUS LAB ORDER 2021-09-07 Darrel [facility]idalgo [facility] 11:29:37 [facility] RRL CRITICAL LABS 2021-09-[address] [facility] (ABG,NA,K,H&H,GLUCOSE) 11:07:40 [facility] enter BLOOD GAS, ARTERIAL 2021-09-[address] [facility] 11:07:40 [facility] SODIUM NA-STAT LAB 2021-09-[address] [facility] 11:07:40 [facility] POTASSIUM-STAT LAB 2021-09-07 Ramya, Colby [facility] 11:07:40 [facility] GLUCOSE-STAT LAB 2021-09-07 Ramya, Colby [facility] 11:07:40 [facility] HGB/HCT (H&H) - STAT LAB 2021-09-[address] [facility] 11:07:40 [facility] POCT-ACT 2021-09-[address] [facility] 10:57:00 [facility] LACTIC ACID, ARTERIAL 2021-09-[address] [facility] [facility] 10:44:04 [facility] POCT-ACT 2021-09-[address] [facility] 10:41:00 [facility] RRL CRITICAL LABS 2021-09-[address] [facility] (ABG,NA,K,H&H,GLUCOSE) 10:38:15 [facility] enter BLOOD GAS, ARTERIAL 2021-09-[address] [facility] 10:38:15 [facility] SODIUM NA-STAT LAB 2021-09-[address] [facility] 10:38:15 [facility] POTASSIUM-STAT LAB 2021-09-[address] [facility] 10:38:15 [facility] GLUCOSE-STAT LAB 2021-09-07 Ramya, Colby [facility] 10:38:15 [facility] HGB/HCT (H&H) - STAT LAB 2021-09-[address] [facility] 10:38:15 [facility] ANESTHESIA ROXI 2021-09-[address] [facility] 10:08:54 [facility] POCT-ACT 2021-09-[address] [facility] 10:07:00 [facility] POCT-ACT 2021-09-[address] [facility] 09:32:00 [facility] RRL CRITICAL LABS 2021-09-[address] [facility] (ABG,NA,K,H&H,GLUCOSE) 08:35:02 [facility] enter CALCIUM, IONIZED 2021-09-[address] [facility] 08:35:02 [facility] BLOOD GAS, ARTERIAL 2021-09-[address] [facility] 08:35:02 [facility] SODIUM NA-STAT LAB 2021-09-[address] [facility] 08:35:02 [facility] POTASSIUM-STAT LAB 2021-09-[address] [facility] 08:35:02 [facility] GLUCOSE-STAT LAB 2021-09-[address] [facility] 08:35:02 [facility] HGB/HCT (H&H) - STAT LAB 2021-09-[address] [facility] 08:35:02 [facility] ROBOTIC MITRAL VALVE REPLACEMENT 2021-09-[address] [facility] 07:45:00 [facility] ROBOTIC THORACOSCOPY 2021-09-[address] [facility] (VATS),LIGATION ATRIAL APPENDAGE 07:45:00 [facility] MAZE PROCEDURE, MODIFIED 2021-09-[address] [facility] 07:45:00 [facility] ECHOCARDIOGRAM, 3D, 2021-09-[address] [facility] TRANSESOPHAGEAL 07:45:00 [facility] ECG 12-LEAD 2021-09-[address] [facility] 04:35:18 [facility] ECG 12-LEAD 2021-09-07 Unknown, Hl7 [facility] 04:35:18 [facility] TYPE AND SCREEN, AUTOMATED 2021-09-07 [facility]erve [facility]ieves [facility] 02:59:00 [facility] CBC W/PLT COUNT & AUTO 2021-09-[address] [facility] DIFFERENTIAL 02:59:[address] [facility] HEMOGLOBIN A1C 2021-09-07 Nieves, Herve [facility] 02:59:00 [facility] LIPID PANEL 2021-09-07 Nieves, Herve [facility] 02:59:00 [facility] APTT 2021-09-07 Nieves, Herve [facility] 02:59:00 [facility] TSH 2021-09-07 Nieves, Herve [facility] 02:59:00 [facility] CBC W/PLT COUNT & AUTO 2021-09-[address] [place] [address] DIFFERENTIAL 02:59:[address] [facility] PROTHROMBIN TIME/INR 2021-09-[address] [facility] 02:59:00 [facility] BLOOD GAS, VENOUS 2021-09-[address] [facility] 02:59:00 [facility] COMPREHENSIVE METABOLIC PANEL 2021-09-07 [address] [facility] 02:59:00 [facility] MAGNESIUM 2021-09-[address] [facility] 02:59:00 [facility] PHOSPHORUS 2021-09-[address] [facility] 02:59:00 [facility] POCT-GLUCOSE METER 2021-09-06 Jing, Jerrell [facility] 21:09:00 [facility] APTT 2021-09-[address] [facility] 17:52:00 [facility] PROTHROMBIN TIME/INR 2021-09-[address] [facility] 17:52:00 [facility] POCT-GLUCOSE METER 2021-09-06 Jing, Jerrell [facility] 17:14:00 [facility] POCT-GLUCOSE METER 2021-09-06 Jing, Jerrell [facility] 11:09:00 [facility] APTT 2021-09-[address] [facility] 11:05:00 [facility] POCT-GLUCOSE METER 2021-09-06 Jing, Jerrell [facility] 08:04:00 [facility] ECG 12-LEAD 2021-09-06 Zully Lagunaan A [facility] 07:15:01 [facility] ECG 12-LEAD 2021-09-06 Unknown, Hl7 [facility] 07:15:01 [facility] ECG 12-LEAD 2021-09-06 Unknown, Hl7 [facility] 07:12:35 [facility] CBC W/PLT COUNT & AUTO 2021-09-06 Farjo, Bashar [facility] DIFFERENTIAL 05:03:[address] [facility] BLOOD GAS, VENOUS 2021-09-06 Zully Lagunaan A [facility] 05:03:00 [facility] BASIC METABOLIC PANEL 2021-09-06 Zully Lagunaan A [facility] 05:03:00 [facility] MAGNESIUM 2021-09-06 Zluly Lagunaan A [facility] 05:03:00 [facility] CBC W/PLT COUNT & AUTO 2021-09-06 Jean-Claudejo, Bashar [facility] DIFFERENTIAL 05:03:[address] [facility] APTT 2021-09-06 Kameron Laguna A [facility] 05:03:00 [facility] APTT 2021-09-05 Jing, Jerrell [facility] 22:08:00 [facility] POCT-GLUCOSE METER 2021-09-05 Jing, Jerrell [facility] 21:45:00 [facility] ECG 12-LEAD 2021-09-[address] [facility] 20:35:24 [facility] ECG 12-LEAD 2021-09-05 Unknown, Hl7 [facility] 20:35:24 [facility] POCT-GLUCOSE METER 2021-09-05 Jing, Jerrell [facility] 17:04:00 [facility] APTT 2021-09-05 Zully Lagunaan A [facility] 16:36:00 [facility] B-TYPE NATRIURETIC FACTOR (BNP) 2021-09-[address] [facility] 16:36:00 [facility] BASIC METABOLIC PANEL 2021-09-05 Kameron Laguna A [facility] 16:36:00 [facility] MAGNESIUM 2021-09-05 Zully Lagunaan [address] [facility] 16:36:00 [facility] POCT-GLUCOSE METER 2021-09-05 Jing, Jerrell [facility] 11:28:00 [facility] POCT-GLUCOSE METER 2021-09-05 Jing, Jerrell [facility] 08:21:00 [facility] APTT 2021-09-05 Zully Lagunaan A [facility] 08:16:00 [facility] APTT 2021-09-05 Kameron Laguna A [facility] 04:28:00 [facility] BASIC METABOLIC PANEL 2021-09-[address] [facility] 04:28:00 [facility] MAGNESIUM 2021-09-05 Kameron Laguna A [facility] 04:28:00 [facility] BLOOD GAS, VENOUS 2021-09-[address] [facility] 04:28:00 [facility] VANCOMYCIN LEVEL, TROUGH 2021-09-[address] [facility] 04:28:00 [facility] XR CHEST 1 VIEW PORTABLE / BEDSIDE 2021-09-[address] [facility] 00:32:00 [facility] POCT-GLUCOSE METER 2021-09-04 Jing, Jerrell [facility] 23:57:00 [facility] APTT 2021-09-04 Kameron Laguna A [facility] 22:30:00 [facility] POCT-GLUCOSE METER 2021-09-04 Jing, Jerrell [facility] 22:29:00 [facility] CAROTID DOPPLER BILATERAL 2021-09-[address] [facility] 20:37:00 [facility] POCT-GLUCOSE METER 2021-09-04 Jing, Jerrell [facility] 18:02:00 [facility] BASIC METABOLIC PANEL 2021-09-[address] [facility] 18:02:00 [facility] MAGNESIUM 2021-09-04 Kameron Laguna A [facility] 18:02:00 [facility] BLOOD GAS, VENOUS 2021-09-04 Kameron Laguna A [facility] 18:02:00 [facility] CTA CHEST 2021-09-[address] [facility] 15:55:00 [facility] CTA ABDOMEN & PELVIS 2021-09-[address] [facility] 15:55:00 [facility] APTT 2021-09-04 Kameron Laguna A [facility] 15:16:00 [facility] APTT 2021-09-04 Zully Lagunaan [address] [facility] 14:00:00 [facility] APTT 2021-09-04 Kameron Laguna A [facility] 12:58:00 [facility] POCT-GLUCOSE METER 2021-09-04 Jing, Jerrell [facility] 12:21:00 [facility] TRANSESOPHAGEAL ECHO 2021-09-04 Kameron Laguna A [facility] 10:56:06 [facility] POCT-GLUCOSE METER 2021-09-04 Jing, Jerrell [facility] 09:29:00 [facility] CBC W/PLT COUNT & AUTO 2021-09-04 Ali, Hiba Cooper [facility] DIFFERENTIAL 04:47:00 [facility] CBC W/PLT COUNT & AUTO 2021-09-04 Ali, Hiba Cooper [facility] DIFFER[facility] 04:47:00 [facility] BASIC METABOLIC PANEL 2021-09-[address] [facility] 04:47:00 [facility] MAGNESIUM 2021-09-04 Kameron Laguna A [facility] 04:47:00 [facility] APTT 2021-09-04 Kameron Laguna A [facility] 04:47:00 [facility] BLOOD GAS, VENOUS 2021-09-04 Kameron Laguna A [facility] 04:36:00 [facility] XR CHEST 1 VIEW PORTABLE / BEDSIDE 2021-09-[address] [facility] 00:40:00 [facility] POCT-GLUCOSE METER 2021-09-03 Jing, Jerrell [facility] 22:04:00 [facility] POCT-GLUCOSE METER 2021-09-03 Jing, Jerrell [facility] 16:27:00 [facility] PROCALCITONIN 2021-09-03 Kameron Laguna A [facility] 16:04:00 [facility] BASIC METABOLIC PANEL 2021-09-03 Kameron Laguna A [facility] 16:04:00 [facility] MAGNESIUM 2021-09-[address] [facility] 16:04:00 [facility] BLOOD GAS, VENOUS 2021-09-03 Luz Elena Kameron Bettencourt [facility] 16:04:00 [facility] ECG 12-LEAD 2021-09-[address] [facility] 15:00:16 [facility] ECG 12-LEAD 2021-09-03 Unknown, Hl7 [facility] 15:00:16 [facility] ECG 12-LEAD 2021-09-03 Unknown, Hl7 [facility] 14:59:48 [facility] 2D ECHO W/ DOPPLER (CW/PW/COLOR) 2021-09-[address] [facility] 09:48:42 [facility] CONT WAVE PULSED DOPPLER 2021-09-03 Luz Elena Kameron Bettencourt [facility] 09:44:53 [facility] COLOR-FLOW MAPPING 2021-09-03 Luz Elena Kameron Bettencourt [facility] 09:44:52 [facility] ECG 12-LEAD 2021-09-03 Unknown, Hl7 [facility] 07:30:39 [facility] ECG 12-LEAD 2021-09-03 Unknown, Hl7 [facility] 07:30:39 [facility] ECG 12-LEAD 2021-09-03 Unknown, Hl7 [facility] 07:30:02 [facility] ECG 12-LEAD 2021-09-03 Unknown, Hl7 [facility] 07:30:02 [facility] BLOOD CULTURE 2021-09-[address] [facility] 06:56:00 [facility] CBC W/PLT COUNT & AUTO 2021-09-03 Ali, Hiba Cooper [facility] DIFFER[facility] 04:31:00 [facility] CBC W/PLT COUNT & AUTO 2021-09-03 Ali, Hiba Cooper [facility] DIFFERENTIAL 04:31:00 [facility] BASIC METABOLIC PANEL 2021-09-03 Ali, Hiba Cooper [facility] 04:31:00 [facility] B-TYPE NATRIURETIC FACTOR (BNP) 2021-09-03 Nadimpallveronica, [facility] 04:31:00 [facility] BLOOD GAS, VENOUS 2021-09-[address] [facility] 04:31:00 [facility] HIGH SENSITIVITY TROPONIN I 2021-09-03 Adhi, Otis [facility] 04:31:00 [facility] LACTIC ACID, VENOUS 2021-09-[address] [facility] 04:31:00 [facility] MAGNESIUM 2021-09-[address] [facility] 04:31:00 [facility] XR CHEST 1 VIEW PORTABLE / BEDSIDE 2021-09-[address] L[address]mi [facility] 02:05:00 [facility] HIGH SENSITIVITY TROPONIN I 2021-09-02 Adhi, Otis [facility] 22:33:00 [facility] LACTIC ACID, VENOUS 2021-09-[address] [facility] 22:33:00 [facility] LACTIC ACID, VENOUS 2021-09-02 Nadimpalli, [facility] 19:28:00 [facility] BASIC METABOLIC PANEL 2021-09-02 Nadimpalli, [facility] 19:28:00 [facility] B-TYPE NATRIURETIC FACTOR (BNP) 2021-09-02 Ali, Hiba Cooper [facility] 17:17:00 [facility] PROCALCITONIN 2021-09-02 Ali, Hiba Cooper [facility] 17:17:00 [facility] HIGH SENSITIVITY TROPONIN I 2021-09-02 Ali, Hiba Cooper [facility] 17:17:00 [facility] LACTIC ACID, ARTERIAL 2021-09-02 Ali, Hiba Cooper [facility] 17:17:00 [facility] POCT-BLOOD GASES, ARTERIAL 2021-09-02 Ali, [facility]iba [facility]00 [facility] POCT-SODIUM 2021-09-02 Ali, Hiba Cooper [facility] 17:15:00 [facility] POCT-POTASSIUM 2021-09-02 Ali, Hiba Cooper [facility] 17:15:00 [facility] POCT-HEMOGLOBIN 2021-09-02 Ali, Hiba Cooper [facility] 17:15:00 [facility] POCT-HEMATOCRIT 2021-09-02 Ali, Hiba Cooper [facility] 17:15:00 [facility] POCT-GLUCOSE 2021-09-02 Ali, Hiba Cooper [facility] 17:15:00 [facility] XR CHEST 1 VIEW PORTABLE / BEDSIDE 2021-09-[address] [facility] 16:58:00 [facility] ECG 12-LEAD 2021-09-02 Unknown, Hl7 [facility] 16:50:07 [facility] ECG 12-LEAD 2021-09-[address] [facility] 16:50:07 [facility] ECG 12-LEAD 2021-09-02 Unknown, Hl7 [facility] 16:49:46 [facility] ECG 12-LEAD 2021-09-02 Unknown, Hl7 [facility] 16:49:46 [facility] ECG 12-LEAD 2021-09-02 Unknown, Hl7 [facility] 16:48:34 [facility] ECG 12-LEAD 2021-09-02 Unknown, Hl7 [facility] 16:48:19 [facility] CBC W/PLT COUNT & AUTO 2021-09-02 Ali, Hiba Cooper [facility] 05:14:00 [facility] CBC W/PLT COUNT & AUTO 2021-09-02 Ali, Hiba Cooper [facility] 05:14:00 [facility] BASIC METABOLIC PANEL 2021-09-02 Ali, Hiba Cooper [facility] 05:14:00 [facility] CT CHEST WITH IV CONTRAST 2021-09-01 Ali, Hiba Cooper [facility] 23:45:00 [facility] FERRITIN 2021-09-01 Ali, Hiba Cooper [facility] 17:14:00 [facility] IRON, TIBC, % SAT. (WITHOUT 2021-09-01 Ali, Hiba Cooper [facility] FERRITIN) 17:14:00 [facility] 2D ECHO W/ DOPPLER (CW/PW/COLOR) 2021-09-[address] [facility] 13:34:34 [facility] [place] ESOPH SWALLOW FUNCT WITH CINE 2021-09-[address] [facility] VIDEO 11:43:00 [facility] REPORT OF PROCEDURE - ENDOSCOPY 2021-09-[address] [facility] URL 08:31:23 [facility] ESOPHAGOGASTRODUODENOSCOPY 2021-09-[address] [facility] 07:49:00 [facility] CBC W/PLT COUNT & AUTO 2021-09-[address] [facility] DIFFERENTIAL 05:48:00 [facility] CBC W/PLT COUNT & AUTO 2021-09-01 Jonnie, Michael Hendrickson [facility] DIFFERENTIAL 05:48:00 [facility] BASIC METABOLIC PANEL 2021-09-01 Jonnie, Michael D [facility] 05:48:00 [facility] HEPATIC FUNCTION PANEL 2021-09-01 Jonnie, Michael D [facility] 05:48:00 [facility] PROTHROMBIN TIME/INR 2021-09-01 Jonnie, Michael D [facility] 05:48:00 [facility] MAGNESIUM 2021-09-01 Jonnie, Michael Hendrickson [facility] 05:48:00 [facility] PHOSPHORUS 2021-09-01 Jonnie, Michael Hendrickson [facility] 05:48:00 [facility] TSH/FREE T4 IF INDICATED 2021-09-[address] [facility] 05:48:00 [facility] ECG 12-LEAD 2021-08-31 Unknown, Hl7 [facility] 16:26:58 [facility] ECG 12-LEAD 2021-08-31 Unknown, Hl7 [facility] 16:26:58 [facility] SARS-COV2/RT-PCR ([facility]) 2021-08-[address] [facility] 14:36:00 [facility] LACTIC ACID, VENOUS 2021-08-[address] [facility] 12:48:00 [facility] CBC W/PLT COUNT & AUTO 2021-08-[address] [facility] DIFFER[facility] 12:46:00 [facility] BASIC METABOLIC PANEL 2021-08-[address] [facility] 12:46:00 [facility] CBC W/PLT COUNT & AUTO 2021-08-[address] [facility] DIFFERENTIAL 12:46:00 [facility] HIGH SENSITIVITY TROPONIN I 2021-08-[address] [facility] 12:46:00 [facility] PROTHROMBIN TIME/INR 2021-08-[address] [facility] 12:46:00 [facility] APTT 2021-08-[address] [facility] 12:46:00 [facility] EKG-SCANNED 2021-08-[address] [facility] 00[facility]00:00 [facility] [place] ESOPHAGUS 2021-07-[address] [facility] 10:07:00 [facility] BASIC METABOLIC PANEL 2021-07-[address] [facility] 04:05:00 [facility] SARS-COV2/RT-PCR ([facility]F [facility]) 2021-07-03 George Briee n [facility] 16:14:00 [facility] D-DIMER 2021-07-03 George, Thuyen [facility] 16:14:00 [facility] BLOOD GAS, VENOUS 2021-07-03 George, Thuyen [facility] 16:14:00 [facility] XR CHEST 2 VIEWS 2021-07-03 George, Thuyen [facility] 13:42:00 [facility] CBC W/PLT COUNT & AUTO 2021-07-03 George, Th[facility]en [facility] DIFFER[facility] 13:28:00 [facility] B-TYPE NATRIURETIC FACTOR (BNP) 2021-07-03 George, Thuyen [facility] 13:28:00 [facility] COMPREHENSIVE METABOLIC PANEL 2021-07-03 George, [facility] 13:28:00 [facility] CBC W/PLT COUNT & AUTO 2021-07-03 George, Thuyen [facility] DIFFERENTIAL 13:28:00 [facility] LIPASE 2021-07-03 George, Thuyen [facility] 13:28:00 [facility] HIGH SENSITIVITY TROPONIN I 2021-07-03 George, Thuyen [facility] 13:28:00 [facility] ECG 12-LEAD 2021-07-[address] [facility] 13:11:56 [facility] ECG 12-LEAD 2021-07-03 Unknown, Hl7 [facility] 13:11:56 [facility] EKG-SCANNED 2021-07-03 Provider, Brigid [facility] 00:00:00 Scanning [facility] HEMOGLOBIN AND HEMATOCRIT 2021-05-26 Gadicherla, Noa [facility] 04:39:00 [facility] PREPARE LEUKO-REDUCED RBC 2021-05-25 Obdulia, Suellen [facility] 23:54:00 [facility] HEMOGLOBIN AND HEMATOCRIT 2021-05-25 Gadicherla, Noa [facility] 18:30:00 [facility] HEMOGLOBIN AND HEMATOCRIT 2021-05-25 Gadicherla, Noa [facility] 10:43:00 [facility] HEMOGLOBIN AND HEMATOCRIT 2021-05-25 Gadicherla, Noa [facility] 04:19:00 [facility] HEMOGLOBIN AND HEMATOCRIT 2021-05-[address] [facility] 16:22:00 [facility] HEMOGLOBIN AND HEMATOCRIT 2021-05-[address] [facility] 08:03:00 [facility] BASIC METABOLIC PANEL (7) 2021-05-[address] [facility] 08:03:00 [facility] TRANSFUSE LEUKO-REDUCED RED BLOOD 2021-05-24 Obdulia, Suellen [facility] CELLS 01:55:00 [facility] SARS-COV2/RT-PCR ([facility]) 2021-05-23 Obdulia, Suellen [facility] 19:01:00 [facility] TYPE AND SCREEN, AUTOMATED 2021-05-23 Obdulia, Suellen [facility] 16:24:00 [facility] CBC W/PLT COUNT & AUTO 2021-05-23 Obdulia, Suellen [facility] DIFFERENTIAL 16:24:00 [facility] CBC W/PLT COUNT & AUTO 2021-05-23 Obdulia, Suellen [facility] DIFFERENTIAL 16:24:00 [facility] PT/APTT 2021-05-23 Mikyha, Suellen [facility] 16:24:00 [facility] COMPREHENSIVE METABOLIC PANEL 2021-05-23 Obdulia, Suellen [facility] 16:23:00 [facility] LIPASE 2021-05-23 Rajjuliane, Suellen [facility] 16:23:00 [facility] ECG 12-LEAD 2021-05-23 Unknown, Hl7 [facility] 15:13:04 [facility] EKG-SCANNED 2021-05-23 Provider, Default [facility] 00:00:00 Scanning [facility] CBC W/PLT COUNT & AUTO 2021-05-[address] [facility] DIFFERENTIAL 04:10:00 [facility] CBC W/PLT COUNT & AUTO 2021-05-20 Alao, Titilola [facility] DIFFERENTIAL 04:10:00 [facility] BASIC METABOLIC PANEL (7) 2021-05-[address] [facility] 04:10:00 [facility] CBC (HEMOGRAM ONLY) 2021-05-[address] [facility] 03:43:00 [facility] BASIC METABOLIC PANEL (7) 2021-05-17 [facility]egan Rico [facility] 03:43:00 [facility] HEMOGLOBIN AND HEMATOCRIT 2021-05-16 Raegan Rico [facility] 20:11:00 [facility] REPORT OF PROCEDURE - ENDOSCOPY 2021-05-[address] [facility] URL 11:57:57 [facility] ESOPHAGOGASTRODUODENOSCOPY 2021-05-16 Jimmy Bowers [facility] 11:15:00 [facility] CBC W/PLT COUNT & AUTO 2021-05-[address] [facility] DIFFERENTIAL 04:48:00 [facility] CBC W/PLT COUNT & AUTO 2021-05-[address] [facility] DIFFERENTIAL 04:48:00 [facility] BASIC METABOLIC PANEL (7) 2021-05-[address] [facility] 04:48:00 [facility] HEMOGLOBIN AND HEMATOCRIT 2021-05-[address] [facility] 23:52:00 [facility] SARS-COV2/RT-PCR ([facility]) 2021-05-15 Alao, Titilol a [facility] 16:46:00 [facility] ECG 12-LEAD 2021-05-15 Unknown, Hl7 [facility] 15:26:10 [facility] TYPE AND SCREEN, AUTOMATED 2021-05-15 Jacobo Steward [facility] 15:00:00 [facility] CBC W/PLT COUNT & AUTO 2021-05-15 Alao, Iftikharilola [facility] DIFFERENTIAL 15:00:00 [facility] CBC W/PLT COUNT & AUTO 2021-05-15 Alao, Titilola [facility] DIFFERENTIAL 15:00:00 [facility] COMPREHENSIVE METABOLIC PANEL 2021-05-[address] [facility] 15:00:00 [facility] MAGNESIUM 2021-05-[address] [facility] 15:00:00 [facility] PHOSPHORUS 2021-05-[address] [facility] 15:00:00 [facility] HIGH SENSITIVITY TROPONIN I 2021-05-[address] [facility] 15:00:00 [facility] XR CHEST 1 VIEW PORTABLE / BEDSIDE 2021-05-15 [address] angel [facility] 13:52:00 [facility] EKG-SCANNED 2021-05-15 Provider, Default [facility] 00:00:00 [facility] EGD (ENDO) [facility]04[facility]22 [facility] 12:55[facility]59 [facility]ly [facility] DAY SURGERY - ADC 2019-04-22 [facility] 05:01:00 Unassigned, No [facility] Plan of Care Planned Activity Planned Date Details Comments Source Future Scheduled 2023-04-[address] [facility] Test 00:00:00 (#1) [code = [facility] Influenza Vaccine (#1)] Future Scheduled 2023-04-[address] [facility] Test 00:00:00 (#1) [code = [facility] Influ[facility] Vaccine (#1)] Future Scheduled 2023-04-[address] [facility] Test 00:00:00 (#1) [code = [facility] Influenza Vaccine (#1)] Future Scheduled 2022-10-04 [facility] (#1) [code = [facility] INFLUENZA VACCINE (#1)] Future Scheduled 2022-04-[address] [facility] Test 00:00:00 (#1) [code = [facility] INFLUENZA VACCINE (#1)] Future Scheduled 2022-04-[address] [facility] Test 00:00:00 (#1) [code = [facility] INFLUENZA VACCINE (#1)] Future Scheduled 2021-09-12 [...] Department ID 2021-09-20 Outpatient 3 VICKY BELTRAN [id number] [facility] 15:05:33 [facility] [place] 2021-09-15 Outpatient 3 VICKY BELTRAN [id number] [facility] 14:41:07 ALBA [facility] [place] 2021-09-14 Outpatient 3 [id number] VICKY CRD [id number] [facility] 13:28:13 1209 [facility] [place] 2021-09-14 Outpatient 3 [id number] ENCPL REF [id number] [facility] 13:27:27 [facility] [place] 2021-09-14 Outpatient 3 [id number] ENCPL REF [id number] [facility] 13:27:13 1207 [facility] [place] 2021-05-28 Inpatient ER ELLA, FRACISCO [facility] [id number] [facility] 12:00:47 RLYAN 2023-09-03 2023-09-03 Outpatient R [facility] [id number] Univers 09:00:00 09:00:00 BEN eliana o [facility] 2023-07-02 2023-07-02 Outpatient R [facility] [id number] Univers 14:40:00 14:40:00 KIRANKAI gioy o [facility] 2023-06-12 2023-06-12 [facility] [id number] Univers 00:00:00 00:00:00 Ben [place] [id number] [place] [id number] [facility] NAL [address] [place] [address] 2023-06-12 2023-06-12 [facility] [id number] Univers 00:00:00 00:00:00 Qiageenaprice [place] 350.1.13.10 [place] [id number] Mn dicsd NAL [address] [place] [address] 2023-06-11 2023-06-11 [facility] 1.2.840.114 [id number] Univers 13:27:41 23:59:00 Encounter Kirangeenaprice XAVIERTON 350.1.13.10 [place] [id number] [address] 2023-06-11 2023-06-11 Outpatient R [facility] [id number] Univers 13:27:41 23:59:00 BEN powersy o [facility] 2023-06-03 2023-06-03 Outpatient R [facility] [id number] Univers 13:00:00 13:47:10 BEN ity o [facility] 2023-06-03 2023-06-03 Office Lupillo, [facility] 1.2.840.114 [id number] Univers 13:00:00 13:47:10 Visit Ben SOMMER 350.1.13.10 it[place] [id number] [facility] 059 [facility] 2023-06-03 2023-06-03 Orders Doctor LIDIA 1.2.840.114 [id number] Univers 00:00:00 00:00:00 Only Unassigned, ANA MARIA 350.1.13.10 ity [place] [facility] 4.2.7.2.686 Tomas as [phone] [address] 2023-04-08 2023-04-08 Orders Doctor LIDIA 1.2.840.114 [id number] Univers 00:00:00 00:00:00 Only Unassigned, ANA MARIA 350.1.13.10 it[place] [facility] 4.2.7.2.686 Tomas as [id number] [address] 2021-11-21 2021-11-[address] [facility] [id number] 23:59:59 23:59:59 Event Jackelyn [facility] 2021-11-06 2021-11-[address] [facility] [id number] 00:00[facility]00 00:00:00 [facility] 2021-10-04 2021-10-[address] [facility] [id number] 09:00:00 09:30:00 Visit [facility] 2021-10-04 2021-10-04 Outpatient FRACISCO [facility]AS[facility] [id number] [facility] 08:41:28 08:41:28 [facility] RANDALLIA 2021-08-31 2021-09-[address] [facility] [id number] [facility] 12:30:00 17:01:00 Encounter Michael [facility] Alberto, Raz Saldivar, Bartolo SheltonmanGabino 2021-08-31 2021-09-19 Inpatient ER JUAN CARLOS BRITTANYAlexandra Surgery [id number] SLE 12:30:00 17:01:00 GABINO 2021-09-07 2021-09-[address] [facility] [id number] 07:58:00 15:09:00 Event Darrel Kelly [facility] 2021-09-07 2021-09-07 Surgery Ramya, [facility] [id number] 08:00:00 11:45:00 [facility] 2021-09-03 2021-09-03 Outpatient NAVYA CAMARILLO [id number] Navya 00:00:00 00:00:00 ELLIS hendrickson 2021-09-01 2021-09-01 Surgery Maria Teresa, [facility] [id number] 08:00:00 09:00:00 Meliza [facility] 2021-09-01 2021-09-[address] [facility] [id number] 08:01:00 08:36:00 Event Larry Holbrook [facility] 2021-08-31 2021-08-[address] [facility] [id number] 00:00:00 00:00:00 Only [facility] 2021-08-31 2021-08-31 Travel [facility] [id number] [facility] 00:00:00 00:00:00 [facility] 2021-07-28 2021-08-04 Inpatient 3 RUBY, ENCPL CRD [id number] [facility] 12:00:00 11:50:00 ALBA 1210 [facility] Eleonora hendrickson 2021-07-03 2021-07-04 Emergency ER GeorgeTacos grayson Cristopher [facility] [id number] 12:24:00 14:27:00 Darlene Sparks [facility] 2021-07-03 2021-07-04 Outpatient ER DARLENE SPARKS [facility] Emergency 20 [id number] SLE 12:24:00 14:27:00 2021-07-03 2021-07-[address] [facility] [id number] 00:00:00 00:00:00 Only [facility] 2021-07-03 2021-07-03 Travel [facility] [id number] [facility] 00:00:00 00:00:00 [facility] 2021-05-23 2021-05-26 Hospital [facility] [id number] 15:12:00 15:03:00 Encounter Noa Ramirez Alanmegha [facility] 2021-05-23 2021-05-26 Inpatient ER DWIGHT [facility] Emergency 20 [id number] SLE 15:12:00 15:03:00 NAO 2021-05-23 2021-05-23 Travel [facility] [id number] [facility] 00:00:00 00:00:00 [facility] 2021-05-20 2021-05-[address] [facility] [id number] 06:07:00 06:08:00 [facility] 2021-05-20 2021-05-20 Emergency ER [facility] Emergency [id number] [facility] 01:57:00 01:57:00 2021-05-20 2021-05-20 Travel [facility] [id number] [facility] 00:00:00 00:00:00 [facility] 2021-05-15 2021-05-17 Emergency [facility] [id number] [facility] 12:10[facility]00 12:56[facility]00 [facility] 2021-05-16 2021-05-[address] [facility] [id number] 11:24:00 12:17:00 Event Joyce Boss [facility] 2021-05-16 2021-05-16 Surgery Robinson, [facility] [id number] 11:00:00 12:00:00 Jimmy [facility] 2021-05-15 2021-05-15 Emergency ER SLE Emergency [id number] SLE 12:00:00 12:00:00 2021-05-15 2021-05-15 Travel [facility] [id number] [facility] 00:00:00 00:00:00 [facility] 2019-04-22 2019-04-22 [facility] 1.2.840.114 [id number] [facility] 06:15:00 08:56:00 Encounter Katy mena 350.1.13.10 [place] [id number] [facility] 07 Branch 2019-04-22 2019-04-22 [facility] 1.2.840.114 [id number] 06:15:00 08:56:00 Encounter eKaty 350.1.13.10 [place] 4.2.7.2.686 Surgical [id number] [place] [id number] 2019-04-22 2019-04-22 Anesthesia [place] [id number] [facility] 07:54:00 08:13:00 Jaden Sommer 350.1.13.10 i [place] [id number] [facility] 020 Branch 2019-04-22 2019-04-22 Anesthesia [facility] 1.2.840.114 [id number] 07:54:00 08:13:00 Jaden Sommer 350.1.13.10 [place] 4.2.7.2.686 Surgical [id number] Alicia 020 2019-04-22 2019-04-22 Orders Doctor MURILLO 1.2.840.114 [id number] Univers 00:00:00 00:00:00 Only Unassigned, ANA MARIA 350.1.13.10 it[place] [facility] 4.2.7.2.686 Tomas as [id number] [facility] 009 Branch 2019-04-22 2019-04-22 Orders Doctor LIDIA 1.2.840.114 [id number] 00:00:00 00:00:00 Only Unassigned, ANA MARIA 350.1.13.10 [place] [facility] 4.2.7.2.686 [id number] Results Test Description Test Time Test Comments Results Result Comments Source Transthoracic echo (TTE) 2023-06-12 02:44:43 Test Item Value Reference Range Interpretation Comme nts Height (test code = 5117757136) 66 in Weight (test code = 1329502014) 194 lbs Systolic BP (test code = 4340471057) 150 mmHg Diastolic BP (test code = 68 mmHg 3492465860) Heart Rate (test code = 6789471486) 63 bpm BSA (test code = 8495080952) 1.97 m2 LVIDD (test code = 8031875387) 6.00 cm Left Ventricular End Diastolic 182.8 mL Volume by Teichholz Method (test code = 0897760) IVS (test code = 7151691458) 1.08 cm Interventricular Septum Diastolic 1.08 cm Thickness by 2D (test code = 7141351) LVPWD (test code = 3793207397) 1.11 cm PW (test code = 6369148068) 1.11 cm 0.6-1.1 EF(Teich) (test code = 4654988877) 34.50 % LVIDS (test code = 1867341979) 5.00 cm Left Ventricular End Systolic Volume 119.7 mL by Teichholz Method (test code = 0554542) FS (test code = 2992530419) 17 % EF - 2D (test code = 91892351) 34.50 % LVOT diameter (test code = 2.27 cm 0121893262) LVOT area (test code = 1230672064) 4.00 cm2 TR Peak Kelsea (test code = 7689012401) 244.2 cm/s Triscuspid Valve Regurgitation Peak 23.9 mmHg Gradient (test code = 1018061720) ACS (test code = 8448720409) 1.88 cm Ao root diam (test code = 3.70 cm 9077733931) Aortic root (test code = 8999833397) 3.7 cm Ao root annulus (test code = 3.7 cm 2038825683) LA size (test code = 8647781314) 5.7 cm E wave decelartion time (test code = 0.43 s 9608704895) MV Peak E Kelsea (test code = 175.1 cm/s 5092307749) MV Peak A Kelsea (test code = 71.2 cm/s 0643082309) E/A ratio (test code = 8262686298) 2.46 ratio MV Prop V (test code = 9658064632) 40.10 cm/s Tapse (test code = 5554164957) 1.86 cm LVOT stroke volume (test code = 127.70 cm3 1743925728) LVOT peak kelsea (test code = 116.0 cm/s 2551769438) LVOT mn grad (test code = 2.3 mmHg 5757088031) AV LVOT peak gradient (test code = 5.4 mmHg 9731751828) LVOT peak VTI (test code = 31.6 cm 5195234039) LV V1 mean (test code = 6721955048) 69.00 cm/s LAV(MOD-sp4) (test code = 97.10 mL 8567297117) Aortic valve mean velocity (test 75.3 cm/s code = 7438055978) Ao peak kelsea (test code = 9432445070) 139.6 cm/s Ao VTI (test code = 5305224839) 31.3 cm AV area by cont VTI (test code = 4.1 cm2 3583498230) AV area peak kelsea (test code = 3.4 cm2 3628190195) Ao max PG (test code = 3699984895) 7.80 mm[Hg] AV peak gradient (test code = 7.8 mmHg 5481222240) AV valve area (test code = 4.10 cm2 2645546634) AV mean gradient (test code = 2.9 mmHg 6924983452) Radiology Study observation (narrative) (test code = 34200-0) EMERSON (test code = EMERSON) ?Left?Ventricle: Left ventricle is moderately dilated. LVEDD 6.5 cm. Normal wall thickness. Moderate global hypokinesis present. Moderately reduced systolic function with a visually estimated EF of 30 - 35%. Unable to assess diastolic function due to mitral valve surgery. Elevated left ventricular filling pressure. ?Tricuspid?Valve: Insufficient tricuspid regurgitation jet to estimate RVSP, but probably normal. ?RA pressure is 0-5 mmHg. ?Left?Atrium: Left atrium is moderately dilated. ?Mitral?Valve: Bioprosthetic valve. Mean gradient 3.5 mmHg @ HR 56 bpm ?Aorta: Mildly enlarged ascending aorta (3.7 cm). Left VentricleLeft ventricle is moderately dilated. LVEDD 6.5 cm. Normal wall thickness. Moderate global hypokinesis present. Moderately reduced systolic function with a visually estimated EF of 30 - 35%. Unable to assess diastolic function due to mitral valve surgery. Elevated left ventricular filling pressure.Right VentricleRight ventricle size is normal. Normal systolic function.Left AtriumLeft atrium is moderately dilated.Right AtriumRight atrium size is normal.IVC/SVCIVC diameter is less than or equal to 21 mm and decreases greater than 50% during inspiration; therefore the estimated right atrial pressure is normal (~0-5 mmHg).Mitral ValveBioprosthetic valve. Trace transvalvular regurgitation. Mean gradient 3.5 mmHg @ HR 56 bpmTricuspid ValveTricuspid valve structure is normal. Trace transvalvular regurgitation. Insufficient tricuspid regurgitation jet to estimate RVSP, but probably normal. RA pressure is 0-5 mmHg.Aortic ValveTricuspid. Moderately thickened cusps. Moderately calcified cusps.Pulmonic ValveNot well visualized. Trace transvalvular regurgitation.Ascending AortaMildly enlarged ascending aorta (3.7 cm).PericardiumThe pericardium is normal. No pericardial effusion.Study DetailsStudy quality was adequate. A complete echocardiogram was performed using 2D, color flow Doppler and spectral Doppler. The apical, parasternal and subcostal views were obtained. [facility] METABOLIC [id number] 06:01:25 Test Item Value Reference Range Interpretation Comments [...] (test code = 697) EGFR (BEAKER) (test 109 mL/min/1.73 ESTIM ATED GFR IS code = 1092) sq m NOT ACCURATE CREATININE CLEARANCE IN PREDICTING GLOMERULAR FILTRATION RATE . ESTIMATED GFR I S NOT APPLICABLE FOR DIALYSIS PATIEN TS. Flasher Adjuster ID - KEARA WOperator ID - KAYLEEN [id number] 04:56:54 Test Item Value Reference Range Interpretation Comments PHOSPHORUS (BEAKER) (test code = 4.1 mg/dL 2.3-4.7 604) Flasher Adjuster ID - KEARA [id number] 04:56:53 Test Item Value Reference Range Interpretation Comments MAGNESIUM (BEAKER) (test code = 2.1 mg/dL 1.6-2.6 627) Flasher Adjuster ID - KEARA WCALCIUM, [id number] 04:30:35 Test Item Value Reference Range Interpretation Comments CALCIUM IONIZED (BEAKER) (test 1.13 mmol/L 1.12-1.27 code = 698) PH, BLOOD (BEAKER) (test code = 7.47 1810) PROTHROMBIN [id number] 04:04:47 Test Item Value Reference Range Interpretation Comments PROTIME (BEAKER) 27.1 seconds 11.9-14.2 H (test code = 759) INR (BEAKER) (test 2.54 See_Comment [Automat ed message] code = 370) The system Autosprite generated this result transmitted ref erence range: <=5.90. The reference range was not used to int erpret this result as normal/abnormal . RECOMMENDED COUMADIN/WARFARIN INR THERAPY RANGESSTANDARD DOSE: 2.0 - 3.0 Includes: PROPHYLAXIS for venous thrombosis, systemic embolization; TREATMENT for venous thrombosis and/or pulmonary embolus.HIGH RISK: Target INR is 2.5-3.5 for patients with mechanical heart valves.CBC W/PLT COUNT & AUTO [id number] 03:57:43 Test Item Value Reference Range Interpretation [...] (BEAKER) (test code = 2801) COMPREHENSIVE METABOLIC [id number] 11:28:15 Test Item Value Reference Range Interpretation [...] S NOT APPLICABLE FOR DIALYSIS PATIEN TS. Flasher Adjuster ID - PIAYA LRAD, CHEST, 1 VIEW, NON [id number] 07:44:00Reason for exam:->S/p Ct SurgeryShould this be performed at the bedside?->Yes [facility] 1945 Sex: MFINAL REPORT RAD, CHEST, 1 VIEW, NON DEPT INDICATION: S/p Ct Surgery COMPARISON:Prior day's exam FINDINGS: Portable frontal view of the chest. IMPRESSION: Support Lines: Overlying leads. Lungs and pleura: Bibasilar atelectasis and basilar opacities, unchanged. No significant pneumothorax. Heart and mediastinum: Stable contours. Additional findings: None. Signed: Gaby Cordero Verified Date/Time: 09/18/2021 07:44:52 [facility] Room PROTHROMBIN TIME/[id number] 04:28:26 Test Item Value Reference Range Interpretation Comments PROTIME (BEAKER) 24.0 seconds 11.9-14.2 H (test code = 759) INR (BEAKER) (test 2.18 See_Comment [Automat ed message] code = 370) The system [employer]ospr[employer] generated this result transmitted ref erence range: <=5.90. The reference range was not used to int erpret this result as normal/abnormal . RECOMMENDED COUMADIN/WARFARIN INR THERAPY RANGESSTANDARD DOSE: 2.0 - 3.0 Includes: PROPHYLAXIS for venous thrombosis, systemic embolization; TREATMENT for venous thrombosis and/or pulmonary embolus.HIGH RISK: Target INR is 2.5-3.5 for patients with mechanical heart valves.[id number] 04:17:02 Test Item Value Reference Range Interpretation Comments MAGNESIUM (BEAKER) (test code = 2.0 mg/dL 1.6-2.6 627) Flasher Adjuster ID - [id number] 04:17:02 Test Item Value Reference Range Interpretation Comments PHOSPHORUS (BEAKER) (test code = 3.6 mg/dL 2.3-4.7 604) Flasher Adjuster ID - DBBASIC METABOLIC [id number] 04:17:01 Test Item Value Reference Range Interpretation [...] S NOT APPLICABLE FOR DIALYSIS PATIEN TS. Flasher Adjuster ID - DBCALCIUM, [id number] 03:53:15 Test Item Value Reference Range Interpretation Comments CALCIUM IONIZED (BEAKER) (test 1.13 mmol/L 1.12-1.27 code = 698) PH, BLOOD (BEAKER) (test code = 7.47 1810) CBC W/PLT COUNT & AUTO [id number] 03:52:23 Test Item Value Reference Range Interpretation [...] PERCENT (BEAKER) (test code = 2801) POC-Glucose [id number] 17:37:37 Test Item Value Reference Range Interpretation Comments POC-Glucose Meter (test 160 mg/dL 70-110 H : TE STED AT [facility] code = 1538) [address] [facility] [place], 770 30: Flasher Adjuster/Techni bart ID = [id number] for Jae Parrish luis angel Lab Interpretation (test Abnormal code = 84513-9) [facility] [id number] 17:37:37 Test Item Value Reference Range Interpretation Comments POC-Glucose Meter (test 160 mg/dL 70-110 H : TE STED AT [facility] code = 1538) [address] [facility], 770 30: Flasher Adjuster/Techni bart ID = [id number] for Parrish Rowe a Lab Interpretation (test Abnormal code = 81896-8) [facility] [id number] 17:37:37 Test Item Value Reference Range Interpretation Comments POC-Glucose Meter (test 160 mg/dL 70-110 H : TE STED AT [facility] code = 1538) [address] [facility], 770 30: Flasher Adjuster/Techni bart ID = [id number] for Michelle Rowess a Lab Interpretation (test Abnormal code = 65192-8) [facility]-GLUCOSE [id number] 17:37:37 Test Item Value Reference Range Interpretation Comments POC-GLUCOSE METER 160 mg/dL 70-110 H : [facility] (BEAKER) (test code = [facility], 1538) [address]: Flasher Adjuster/Techni bart ID = [id number] for Ba rreraMichelleSammie POCT-GLUCOSE [id number] 12:40:04 Test Item Value Reference Range Interpretation Comments POC-GLUCOSE METER 126 mg/dL 70-110 H : TESTED A T [facility] 6720 (BEAKER) (test code = [facility], 1538) 39790: Flasher Adjuster/Techni bart ID = [id number] for Michelle Mercadossa [id number] 08:29:45 Test Item Value Reference Range Interpretation Comments PHOSPHORUS (BEAKER) (test code = 4.0 mg/dL 2.3-4.7 604) Flasher Adjuster ID - [id number] 08:29:44 Test Item Value Reference Range Interpretation Comments MAGNESIUM (BEAKER) (test code = 2.1 mg/dL 1.6-2.6 627) Flasher Adjuster ID - DBPOCT-GLUCOSE [id number] 08:09:33 Test Item Value Reference Range Interpretation Comments POC-GLUCOSE METER 91 mg/dL 70-110 : TESTED A T [facility] 6720 (BEAKER) (test code = [facility], 1538) 86471: Flasher Adjuster/Techni bart ID = [id number] for Sammie Lawson CBC W/PLT COUNT & AUTO [id number] 06:42:04 Test Item Value Reference Range Interpretation [...] PERCENT (BEAKER) (test code = 2801) PROTHROMBIN TIME/[id number] 06:23:57 Test Item Value Reference Range Interpretation Comments PROTIME (BEAKER) 23.1 seconds 11.9-14.2 H (test code = 759) INR (BEAKER) (test 2.08 See_Comment [Automat ed message] code = 370) The system Autosprite generated this result transmitted ref erence range: <=5.90. The reference range was not used to int erpret this result as normal/abnormal . RECOMMENDED COUMADIN/WARFARIN INR THERAPY RANGESSTANDARD DOSE: 2.0 - 3.0 Includes: PROPHYLAXIS for venous thrombosis, systemic embolization; TREATMENT for venous thrombosis and/or pulmonary embolus.HIGH RISK: Target INR is 2.5-3.5 for patients with mechanical heart valves.CALCIUM, [id number] 05:53:20 Test Item Value Reference Range Interpretation Comments CALCIUM IONIZED (BEAKER) (test 1.13 mmol/L 1.12-1.27 code = 698) PH, BLOOD (BEAKER) (test code = 7.48 1810) RAD, CHEST, 1 VIEW, NON [id number] 05:22:00Reason for exam:->S/p Ct SurgeryShould this be performed at the bedside?->Yes [facility] : 1945 Sex: MFINAL REPORT RAD, CHEST, 1 VIEW, NON DEPT INDICATION: S/p Ct Surgery COMPARISON:Prior day's exam FINDINGS: Portable frontal view of the chest. IMPRESSION: Support Lines: None Lungsand pleura: Unchanged scattered bilateral parenchymal opacities. No new consolidation. No pneumothorax. Heart and mediastinum: Stable contours. Additional findings: None. Signed: Halley Osullivan Verified Date/Time: 09/17/2021 05:22:46 POCT-GLUCOSE [id number] 21:59:07 Test Item Value Reference Range Interpretation Comments POC-GLUCOSE METER 118 mg/dL 70-110 H : TESTED A T [facility] 6720 (BEAKER) (test code = [facility], 1538) 72599: Flasher Adjuster/Techni bart ID = [id number] for Co rtezTinaAtco [id number] 17:58:41 Test Item Value Reference Range Interpretation Comments MAGNESIUM (BEAKER) (test code = 2.0 mg/dL 1.6-2.6 627) Flasher Adjuster ID - KEARA WPOCT-GLUCOSE [id number] 17:29:30 Test Item Value Reference Range Interpretation Comments POC-GLUCOSE METER 123 mg/dL 70-110 H : TESTED A T [facility] 6720 (BEAKER) (test code = [facility], 1538) 11237: Flasher Adjuster/Techni bart ID = [id number] for Ba rrera, Sammie POCT-GLUCOSE [id number] 12:52:33 Test Item Value Reference Range Interpretation Comments POC-GLUCOSE METER 122 mg/dL 70-110 H : TESTED A T [facility] 6720 (BEAKER) (test code = [facility], 1538) 59330: Flasher Adjuster/Techni bart ID = [id number] for Ba rrera, Sammie BASIC METABOLIC [id number] 08:28:13 Test Item Value Reference Range Interpretation [...] S NOT APPLICABLE FOR DIALYSIS PATIEN TS. Flasher Adjuster ID - KEARA WPOCT-GLUCOSE [id number] 07:58:49 Test Item Value Reference Range Interpretation Comments POC-GLUCOSE METER 82 mg/dL 70-110 : TESTED A T [facility] 6720 [facility] (test code = [place], 1538) 35869: Flasher Adjuster/Techni bart ID = [id number] for Cole valdo Sammie RAD, CHEST, 1 VIEW, NON [id number] 07:01:00Reason for exam:->S/p Ct SurgeryShould this be performed at the bedside?->Yes [facility] 1945 Sex: [...] contours. Additional findings: None. Signed: Gaby Cordero MDReport Verified Date/Time: 09/16/2021 07:01:13 Electronically signed by: GABY CORDERO MD on 207:01 AMPHOSPHORUS 2021-09-16 05:10:07 Test Item Value Reference Range Interpretation Comments PHOSPHORUS (BEAKER) (test code = 4.4 mg/dL 2.3-4.7 604) Flasher Adjuster ID - KEARA [id number] 05:10:06 Test Item Value Reference Range Interpretation Comments MAGNESIUM (BEAKER) (test code = 2.0 mg/dL 1.6-2.6 627) Flasher Adjuster ID - KEARA [id number] 04:45:18 Test Item Value Reference Range Interpretation Comments PTT (test code = 46.4 See_Comment H [Automated message] 35896-9) The system Autosprite generated this result transmitted ref erence range: 22.5 - 3 6.0 seconds. The reference range was not used to int erpret this result as normal/abnormal . Lab Interpretation (test Abnormal code = 82135-1) [facility] Test Item Value Reference Range Interpretation Comments PTT (test code = 46.4 See_Comment H [Automated message] 89237-5) The system Autosprite generated this result transmitted ref erence range: 22.5 - 3 6.0 seconds. The reference range was not used to int erpret this result as normal/abnormal . Lab Interpretation (test Abnormal code = 94029-0) [facility] 04:45[facility]18 Test Item Value Reference Range Interpretation Comments PTT (test code = 46.4 See_Comment H [Automated message] 54962-5) The system Autosprite generated this result transmitted ref erence range: 22.5 - 3 6.0 seconds. The reference range was not used to int erpret this result as normal/abnormal . Lab Interpretation (test Abnormal code = 61281-2) [place] [id number] 04:45:18 Test Item Value Reference Range Interpretation Comments PARTIAL THROMBOPLASTIN TIME 46.4 seconds 22.5-36.0 H (BEAKER) (test code = 760) PROTHROMBIN TIME/[id number] 04:44:13 Test Item Value Reference Range Interpretation Comments PROTIME (BEAKER) 18.3 seconds 11.9-14.2 H (test code = 759) INR (BEAKER) (test 1.54 See_Comment [Automat ed message] code = 370) The system Autosprite generated this result transmitted ref erence range: <=5.90. The reference range was not used to int erpret this result as normal/abnormal . RECOMMENDED COUMADIN/WARFARIN INR THERAPY RANGESSTANDARD DOSE: 2.0 - 3.0 Includes: PROPHYLAXIS for venous thrombosis, systemic embolization; TREATMENT for venous thrombosis and/or pulmonary embolus.HIGH RISK: Target INR is 2.5-3.5 for patients with mechanical heart valves.CALCIUM, [id number] 04:42:58 Test Item Value Reference Range Interpretation Comments CALCIUM IONIZED (BEAKER) (test 1.12 mmol/L 1.12-1.27 code = 698) PH, BLOOD (BEAKER) (test code = 7.47 1810) CBC W/PLT COUNT & AUTO [id number] 04:35:30 Test Item Value Reference Range Interpretation [...] PERCENT (BEAKER) (test code = 2801) POCT-GLUCOSE [id number] 20:58:14 Test Item Value Reference Range Interpretation Comments POC-GLUCOSE METER 104 mg/dL 70-110 : TESTED A T [facility] 6720 (BEAKER) (test code = [facility], 153) 28476: Flasher Adjuster/Techni bart ID = [id number] for Co Roberto diopa POCT-GLUCOSE [id number] 17:20:16 Test Item Value Reference Range Interpretation Comments POC-GLUCOSE METER 93 mg/dL 70-110 : TESTED A T [facility] 6720 (BEAKER) (test code = [facility], 153) 08943: Flasher Adjuster/Techni bart ID = [id number] for VÍCTOR MURILLO POCT-GLUCOSE [id number] 12:15:47 Test Item Value Reference Range Interpretation Comments POC-GLUCOSE METER 122 mg/dL 70-110 H : TESTED A T [facility] 6720 (BEAKER) (test code = [facility] [place], 1538) 85303: Flasher Adjuster/Techni bart ID = [id number] for VÍCTOR GRIMALDO POCT-GLUCOSE [id number] 07:26:33 Test Item Value Reference Range Interpretation Comments POC-GLUCOSE METER 95 mg/dL 70-110 : TESTED A T [facility] 6720 ([place]) (test code = [facility], 1538) 81948: Flasher Adjuster/Techni bart ID = [id number] for VÍCTOR MURILLO RAD, CHEST, 1 VIEW, NON [id number] 07:09:00while patient is intubated or has chest tubes.Reason for exam:->Status post CV SurgeryShould thisbe performed at the bedside?->Yes [facility] 1945 Sex: MFINAL REPORT CLINICAL HISTORY: Status post CV Surgery TECHNIQUE: 1 view of the chest. COMPARISON: 09/14/2021 IMPRESSION: A right chest tube is again seen without definite evidence for pneumothorax. Mild bilateral lower lung opacities are unchanged. Blunting of the costophrenic angles again seen. The cardiomediastinal silhouette is magnified by technique. Signed: Shannon Cottoeport Verified Date/Time: 09/15/2021 07:09:45 [facility] Hepatic function [id number] 04:57:12 Test Item Value Reference Range Interpretation Comments Protein, Total (test 5.4 See_Comment L [Autom ated code = 2885-2) message] The system which generated this result transmit dante reference range : 6.0 - 8.3 gm/dL . The reference range was not u sed to interpret th is result as normal/abnormal . Albumin (test code = 2.9 g/dL 3.5-5.0 L 69402-2) Total Bilirubin (test 1.1 mg/dL 0.2-1.2 code = 1974-2) Bilirubin, Direct 0.6 mg/dL 0.1-0.5 H (test code = 1967-7) Alkaline Phosphatase 170 U/L 40-150 H (test code = 6768-6) AST (test code = 26 U/L 5-34 1920-8) ALT (test code = 43 U/L - 1742-6) EMERSON (test code = EMERSON) Flasher Adjuster ID - KAYLEEN L Lab Interpretation Abnormal (test code = 17695-7) [facility] [id number] 04:57:12 Test Item Value Reference Range Interpretation Comments Protein, Total (test 5.4 See_Comment L [Autom ated code = 2885-2) message] The system which generated this result transmit dante reference range : 6.0 - 8.3 gm/dL . The reference range was not u sed to interpret th is result as normal/abnormal . Albumin (test code = 2.9 g/dL 3.5-5.0 L 66837-6) Total Bilirubin (test 1.1 mg/dL 0.2-1.2 code = 1974-2) Bilirubin, Direct 0.6 mg/dL 0.1-0.5 H (test code = 1967-7) Alkaline Phosphatase 170 U/L 40-150 H (test code = 6768-6) AST (test code = 26 U/L 5-34 1920-8) ALT (test code = 43 U/L 6-55 1742-6) EMERSON (test code = EMERSON) Flasher Adjuster ID - KAYLEEN L Lab Interpretation Abnormal (test code = 78322-5) [facility] [id number] 04:57:12 Test Item Value Reference Range Interpretation Comments Protein, Total (test 5.4 See_Comment L [Autom ated code = 2885-2) message] The system which generated this result transmit dante reference range : 6.0 - 8.3 gm/dL . The reference range was not u sed to interpret th is result as normal/abnormal . Albumin (test code = 2.9 g/dL 3.5-5.0 L 48919-2) Total Bilirubin (test 1.1 mg/dL 0.2-1.2 code = 1975-2) Bilirubin, Direct 0.6 mg/dL 0.1-0.5 H (test code = 1968-7) Alkaline Phosphatase 170 U/L 40-150 H (test code = 6768-6) AST (test code = 26 U/L 5-34 1920-8) ALT (test code = 43 U/L 6-55 1742-6) EMERSON (test code = EMERSON) Flasher Adjuster ID - KAYLEEN L Lab Interpretation Abnormal (test code = 60893-0) [facility] FUNCTION [id number] 04:57:12 Test Item Value Reference Range Interpretation [...] (test code = 43 U/L -55 347) Flasher Adjuster ID - KAYLEEN [id number] 04:57:11 Test Item Value Reference Range Interpretation Comments MAGNESIUM (BEAKER) (test code = 2.0 mg/dL 1.6-2.6 627) Flasher Adjuster ID - KAYLEEN [id number] 04:57:11 Test Item Value Reference Range Interpretation Comments PHOSPHORUS (BEAKER) (test code = 3.8 mg/dL 2.3-4.7 604) Flasher Adjuster ID - KAYLEEN LBASIC METABOLIC [id number] 04:57:10 Test Item Value Reference Range Interpretation [...] S NOT APPLICABLE FOR DIALYSIS PATIEN TS. Flasher Adjuster ID - PIAYA [id number] 04:49:45 Test Item Value Reference Range Interpretation Comments PARTIAL THROMBOPLASTIN TIME 44.9 seconds 22.5-36.0 H (BEAKER) (test code = 760) PROTHROMBIN TIME/[id number] 04:48:43 Test Item Value Reference Range Interpretation Comments PROTIME (BEAKER) 16.0 seconds 11.9-14.2 H (test code = 759) INR (BEAKER) (test 1.30 See_Comment [Automat ed message] code = 370) The system Autosprite generated this result transmitted ref erence range: <=5.90. The reference range was not used to int erpret this result as normal/abnormal . RECOMMENDED COUMADIN/WARFARIN INR THERAPY RANGESSTANDARD DOSE: 2.0 - 3.0 Includes: PROPHYLAXIS for venous thrombosis, systemic embolization; TREATMENT for venous thrombosis and/or pulmonary embolus.HIGH RISK: Target INR is 2.5-3.5 for patients with mechanical heart valves.CBC W/PLT COUNT & AUTO [id number] 04:46:45 Test Item Value Reference Range Interpretation [...] PERCENT (BEAKER) (test code = 2801) CALCIUM, [id number] 04:42:09 Test Item Value Reference Range Interpretation Comments CALCIUM IONIZED (BEAKER) (test 1.11 mmol/L 1.12-1.27 L code = 698) PH, BLOOD (BEAKER) (test code = 7.48 1810) Prepare Leuko-Red [id number] 23:55:00 Test Item Value Reference Range Interpretation Comments CROSSMATCH (test code = 2264) COMPATIBLE Unit ABO (test code = A Pos 9521707) UNIT NUMBER (test code = [id number] 934-0) Status (test code = 5004437) [facility] Blood [facility] Product (test code RED BLOOD CELLS = 2263) PRODUCT CODE (test code = P0433J79 933-2) [facility] [id number] 23:55:00 Test Item Value Reference Range Interpretation Comments CROSSMATCH (test code = 2264) COMPATIBLE Unit ABO (test code = A Pos 7814714) UNIT NUMBER (test code = [id number] 934-0) Status (test code = 9581922) [facility] Blood Bank Product (test code RED BLOOD CELLS = 2263) PRODUCT CODE (test code = C3636N81 933-2) [facility] Leuko-Red [id number] 23:55:00 Test Item Value Reference Range Interpretation Comments CROSSMATCH (test code = 2264) COMPATIBLE Unit ABO (test code = A Pos 8055107) UNIT NUMBER (test code = [id number] 934-0) Status (test code = 5013634) [facility] Blood Bank Product (test code RED BLOOD CELLS = 2263) PRODUCT CODE (test code = T6411A38 933-2) [facility] [id number] 21:30:13 Test Item Value Reference Range Interpretation Comments MAGNESIUM (BEAKER) (test code = 2.0 mg/dL 1.6-2.6 627) Flasher Adjuster ID - PIAYA LPOCT-GLUCOSE [id number] 21:14:24 Test Item Value Reference Range Interpretation Comments POC-GLUCOSE METER 118 mg/dL 70-110 H : TESTED A T [facility] 6720 (BEAKER) (test code = [facility] [place], 1538) 10754: Flasher Adjuster/Techni bart ID = [id number] for MORELIA WEBB BASIC METABOLIC [id number] 09:32:00 Test Item Value Reference Range Interpretation [...] S NOT APPLICABLE FOR DIALYSIS PATIEN TS. Flasher Adjuster ID - PIAYA LCBC W/PLT COUNT & AUTO [id number] 09:06:06 Test Item Value Reference Range Interpretation [...] 2D Echo W/Doppler(CW/PW/Color)2021-09-14 08:48:39Ejection FractionSLEH ECHO HEARTLAB [facility] W/Doppler(CW/PW/Color)2021-09-14 08:48:39Ejection FractionSLEH ECHO HEARTLAB [facility] Echo W/Doppler(CW/PW/Color) 2021-09-14 08:48:39Ejection FractionSLE ECHO HEARTLAB [facility] CenterPOCT[facility]GLU[facility]SE [id number] 07:35:25 Test Item Value Reference Range Interpretation Comments POC-GLUCOSE METER 91 mg/dL 70-110 : TESTED A T [facility] 6720 (BEAKER) (test code = [facility] [place], 1538) 465[address]: Flasher Adjuster/Techni bart ID = [id number] for CINDI DAVALOS BASIC METABOLIC [id number] 06:05:56 Test Item Value Reference Range Interpretation [...] S NOT APPLICABLE FOR DIALYSIS PATIEN TS. Flasher Adjuster ID - PIAYA LHEPATIC FUNCTION [id number] 06:05:56 Test Item Value Reference Range Interpretation [...] Specimen moderately (test code = 347) hemolyzed Flasher Adjuster ID - KAYLEEN [id number] 06:05:55 Test Item Value Reference Range Interpretation Comments MAGNESIUM (BEAKER) 2.3 mg/dL 1.6-2.6 Specimen moderately (test code = 627) hemolyzed Flasher Adjuster ID - KAYLEEN [id number] 06:05:55 Test Item Value Reference Range Interpretation Comments PHOSPHORUS (BEAKER) 3.8 mg/dL 2.3-4.7 Specimen moderately (test code = 604) hemolyzed Flasher Adjuster ID - KAYLEEN [id number] 05:42:58 Test Item Value Reference Range Interpretation Comments PARTIAL THROMBOPLASTIN TIME 39.1 seconds 22.5-36.0 H (BEAKER) (test code = 760) PROTHROMBIN TIME/[id number] 05:42:16 Test Item Value Reference Range Interpretation Comments PROTIME (BEAKER) 14.8 seconds 11.9-14.2 H (test code = 759) INR (BEAKER) (test 1.18 See_Comment [Automat ed message] code = 370) The system Autosprite generated this result transmitted ref erence range: <=5.90. The reference range was not used to int erpret this result as normal/abnormal . RECOMMENDED COUMADIN/WARFARIN INR THERAPY RANGESSTANDARD DOSE: 2.0 - 3.0 Includes: PROPHYLAXIS for venous thrombosis, systemic embolization; TREATMENT for venous thrombosis and/or pulmonary embolus.HIGH RISK: Target INR is 2.5-3.5 for patients with mechanical heart valves.CALCIUM, [id number] 05:36:36 Test Item Value Reference Range Interpretation Comments CALCIUM IONIZED (BEAKER) (test 1.07 mmol/L 1.12-1.27 L code = 698) PH, BLOOD (BEAKER) (test code = 7.42 1810) RAD, CHEST, 1 VIEW, NON [id number] 02:39:00while patient is intubated or has chest tubes.Reason for exam:->Status post CV SurgeryShould thisbe performed at the bedside?->Yes [facility] 1945 [...] Osullivan MDReport Verified Date/Time: 09/14/2021 02:39:11 POCT-GLUCOSE [id number] 22:16:46 Test Item Value Reference Range Interpretation Comments POC-GLUCOSE METER 116 mg/dL 70-110 H : TESTED A T [facility] 6720 (BEAKER) (test code = [facility], 1538) 88139: Flasher Adjuster/Techni bart ID = [id number] for VISHAL GAINES BASIC METABOLIC [id number] 17:49:41 Test Item Value Reference Range Interpretation [...] S NOT APPLICABLE FOR DIALYSIS PATIEN TS. Flasher Adjuster ID - JACQUELINE [id number] 17:49:41 Test Item Value Reference Range Interpretation Comments MAGNESIUM (BEAKER) (test code = 2.2 mg/dL 1.6-2.6 627) Flasher Adjuster ID - JACQUELINE CPOCT-GLUCOSE [id number] 17:28:04 Test Item Value Reference Range Interpretation Comments POC-GLUCOSE METER 153 mg/dL 70-110 H : TESTED A T [facility] 6720 (BEAKER) (test code [facility], = 1538) 84898: Flasher Adjuster/Techni bart ID = [id number] for Ritchie h, Silvana POCT-GLUCOSE [id number] 11:25:51 Test Item Value Reference Range Interpretation Comments POC-GLUCOSE METER 122 mg/dL 70-110 H : TESTED A T [facility] 6720 (BEAKER) (test code = [facility], 1538) 74572: Flasher Adjuster/Techni bart ID = [id number] for PH ABDOULAYE ROJAS [id number] 11:03:29 Test Item Value Reference Range Interpretation Comments MAGNESIUM (BEAKER) (test code = 2.0 mg/dL 1.6-2.6 627) Flasher Adjuster ID - JACQUELINE CBASIC METABOLIC [id number] 11:03:28 Test Item Value Reference Range Interpretation [...] S NOT APPLICABLE FOR DIALYSIS PATIEN TS. Flasher Adjuster ID - JACQUELINE CVenous doppler arm, [id number] 10:17:08Ejection FractionSLEH ECHO HEARTLAB [facility] CenterVenous doppler arm, [id number] 10:17:08Ejection FractionSLEH ECHO HEARTLAB [facility] CenterVenous doppler arm, [id number] 10:17:08Ejection FractionSLEH [facility], [id number] 09:38:00 Test Item Value Reference Range Interpretation Comments ABO/RH AUTOMATED (BEAKER) (test A POSITIVE code = 2260) Ab Scrn (test code = 890-4) NEGATIVE [facility], [id number] 09:38:00 Test Item Value Reference Range Interpretation Comments ABO/RH AUTOMATED (BEAKER) (test A POSITIVE code = 2260) Ab Scrn (test code = 890-4) NEGATIVE [facility] HospitalType and screen, [id number] 09:38:00 Test Item Value Reference Range Interpretation Comments ABO/RH AUTOMATED (BEAKER) (test A POSITIVE code = 2260) Ab Scrn (test code = 890-4) NEGATIVE [facility] HospitalRAD, CHEST, 1 VIEW, NON [id number] 08:40:00while patient is intubated or has chest tubes.Reason for exam:->Status post CV SurgeryShould thisbe performed at the bedside?->Yes [facility] 1945 Sex: [...] Cotto Verified Date/Time: 09/13/2021 08:40:29 [facility] Room POCT-GLUCOSE [id number] 08:01:34 Test Item Value Reference Range Interpretation Comments POC-GLUCOSE METER 89 mg/dL 70-110 : Notified RN/MD: TESTED (ELINAAKER) (test code = AT [facility] 67[address] [facility] 1538) [facility], 7[address] 30: Flasher Adjuster/Techni bart ID = [id number] for ABDOULAYE KATZ PROTHROMBIN TIME/[id number] 04:58:25 Test Item Value Reference Range Interpretation Comments PROTIME (BEAKER) 15.6 seconds 11.9-14.2 H (test code = 759) INR (BEAKER) (test 1.26 See_Comment [Automat ed message] code = 370) The system Autosprite generated this result transmitted ref erence range: <=5.90. The reference range was not used to int erpret this result as normal/abnormal . RECOMMENDED COUMADIN/WARFARIN INR THERAPY RANGESSTANDARD DOSE: 2.0 - 3.0 Includes: PROPHYLAXIS for venous thrombosis, systemic embolization; TREATMENT for venous thrombosis and/or pulmonary embolus.HIGH RISK: Target INR is 2.5-3.5 for patients with mechanical heart valves.CBC W/PLT COUNT & AUTO [id number] 03:26:57 Test Item Value Reference Range Interpretation [...] (BEAKER) (test code = 2801) BASIC METABOLIC [id number] 02:43:59 Test Item Value Reference Range Interpretation [...] is on LVAD, which may hemolyze the blood.Flasher Adjuster ID - PIAYA LHEPATIC FUNCTION [id number] 02:43:59 Test Item Value Reference Range Interpretation [...] Specimen moderately (test code = 347) hemolyzed Flasher Adjuster ID - KAYLEEN [id number] 02:43:58 Test Item Value Reference Range Interpretation Comments PHOSPHORUS (BEAKER) 3.1 mg/dL 2.3-4.7 Specimen moderately (test code = 604) hemolyzed Flasher Adjuster ID - KAYLEEN [id number] 02:43:57 Test Item Value Reference Range Interpretation Comments MAGNESIUM (BEAKER) 2.0 mg/dL 1.6-2.6 Specimen moderately (test code = 627) hemolyzed Flasher Adjuster ID - KAYLEEN Barreraraanatoliy ID - KAYLEEN [id number] 02:41:16 Test Item Value Reference Range Interpretation Comments PARTIAL THROMBOPLASTIN TIME 44.3 seconds 22.5-36.0 H (BEAKER) (test code = 760) CALCIUM, [id number] 02:05:55 Test Item Value Reference Range Interpretation Comments CALCIUM IONIZED (BEAKER) (test 1.10 mmol/L 1.12-1.27 L code = 698) PH, BLOOD (BEAKER) (test code = 7.43 1810) Blood gas, [id number] 02:04:48 Test Item Value Reference Range Interpretation Comments pH, Declan (test code = 7.43 7.32-7.42 H 2746-6) pCO2, Declan (test code = 38 See_Comment L [Aut omated message] 245) The system Autospr[employer] generated this result transmit dante reference range : 41 - 51 mm Hg. The reference range was not used to interpret this result as normal/abnormal . pO2, Declan (test code = 40 See_Comment [Auto mated message] 4185-2) The system [employer] generated this result transmit dante reference range : 25 - 40 mm Hg. The reference range was not used to interpret this result as normal/abnormal . O2 Sat, Declan (test code 76.6 % 40.0-70.0 H = 2711-0) HCO3, Declan (test code = 25 mmol/L 21-29 52547-1) Base Excess, Declan (test 0.9 mmol/L -2.0-3.0 code = 1927-3) Patient Temperature 37.0 (test code = 8310-5) FIO2 (test code = 1819) 21 Lab Interpretation Abnormal (test code = 44513-3) [facility] gas, [id number] 02:04:48 Test Item Value Reference Range Interpretation Comments pH, Declan (test code = 7.43 7.32-7.42 H 2746-6) pCO2, Declan (test code = 38 See_Comment L [Aut omated message] 755) The system [employer] generated this result transmit dante reference range : 41 - 51 mm Hg. The reference range was not used to interpret this result as normal/abnormal . pO2, Declan (test code = 40 See_Comment [Auto mated message] 2705-2) The system [employer] generated this result transmit dante reference range : 25 - 40 mm Hg. The reference range was not used to interpret this result as normal/abnormal . O2 Sat, Declan (test code 76.6 % 40.0-70.0 H = 2711-0) HCO3, Declan (test code = 25 mmol/L - 30910-5) Base Excess, Declan (test 0.9 mmol/L -2.0-3.0 code = 1927-3) Patient Temperature 37.0 (test code = 8310-5) FIO2 (test code = 1819) 21 Lab Interpretation Abnormal (test code = 20137-7) [facility], [id number] 02:04:48 Test Item Value Reference Range Interpretation Comments pH, Declan (test code = 7.43 7.32-7.42 H 2746-6) pCO2, Declan (test code = 38 See_Comment L [Aut omated message] 755) The system [employer] generated this result transmit dante reference range : 41 - 51 mm Hg. The reference range was not used to interpret this result as normal/abnormal . pO2, Declan (test code = 40 See_Comment [Auto mated message] 2705-2) The system [employer] generated this result transmit dante reference range : 25 - 40 mm Hg. The reference range was not used to interpret this result as normal/abnormal . O2 Sat, Declan (test code 76.6 % 40.0-70.0 H = 2711-0) HCO3, Declan (test code = 25 mmol/L 21-29 13037-6) Base Excess, Declan (test 0.9 mmol/L -2.0-3.0 code = 1927-3) Patient Temperature 37.0 (test code = 8310-5) FIO2 (test code = 1819) 21 Lab Interpretation Abnormal (test code = 83757-5) [facility] [id number] 02:04:48 Test Item Value Reference Range Interpretation [...] (BEAKER) (test code = 1819) 21.0 POCT-GLUCOSE [id number] 22:07:43 Test Item Value Reference Range Interpretation Comments POC-GLUCOSE METER 105 mg/dL 70-110 : TESTED A T [facility] 6720 [facility] (test code = [facility], 1538) [address]: Flasher Adjuster/Techni bart ID = [id number] for GO WILLAM LOZAEL POCT-GLUCOSE [id number] 16:18:37 Test Item Value Reference Range Interpretation Comments POC-GLUCOSE METER 118 mg/dL 70-110 H : Notified RN/MD: (BRAXTON) (test code = TESTED AT [facility] 6720 1538) [facility], [address]: Flasher Adjuster/Techni bart ID = [id number] for PH INISEE, ABDOULAYE Tissue [id number] 14:59:34 Test Item Value Reference Range Interpretation Comments Case Report (test code Surgical Pathology = 104) Report Case: [id number] Authorizing Provider: Colby Bui, Collected: 09/07/2021 12:07 PM Ordering Location: [facility] Received: 09/07/2021 03:40 PM PERIOPERATIVE SERVICES Pathologist: Ciro Diamond MD Specimen: Mitral Valve, MITRAL VALVE DIAGNOSIS (test code = e4jzdOYzZXBmv8bhJARmdSS 3220) uZzEwMzNcZnRuYmpcdWMxIH tccnRmMVxlcGljOTYwMVxhb qBgMPPnqPSaQ5BoqchkVIpu PU7vYT4zeTdzdPDgtETfSMZ xGeYxr0cox052cTKlk0nrTJ SNdpkulNi8oGcmJ18en9G6F lzlZ86krTCdVDI9DHCvVUXy lRZbQFRgNSU1NVBgwSEjE8n lURSvQM4dbcdgDTglXCqdFN IeaAN5KSKcmSGaM3MuIHDdT IduMFNpkwf0MxAcQj7ttMVn eTcyMFxwYXJkXHBsYWluXGZ zMjAgTUlUUkFMIFZBTFZFLC JVCCRET6jYUsmduLBoBEZVT ZZASMNCWFUCG7PIMWSXRORZ UJHSY2HNRYPBPZrUHZRSNDY CX5QJCCJQDATUE0AQUNSNAE gUGUROX6GERJ5QENHsnh11A FJ2YhUam3T5IXV1QNCpPZGf g9bwAAEupUPuAlEnMaKnMoU oMvcduMJlYEKdJeTxo7alx2 14jTSus6jdCGNmLfY8dIWfD ZQynHJoP204EANyPNbkj0vz m3QnZGRgjOPfg3Z3ZZBNhqv mxQa9pGwwL72rx2H2NaxoC6 dyRUEjDMVqW1TqTO1hZCKxW pu2OVP9ZTK2JTAmNQGgL1Ga OD0eAAObqZTeCCq1m0qozYg wVMZxOWR4e6khFGiijcZyPD 8kjg9okMc3s5iipwAgTJIsI XEigCNVCBMnC8PojFzkQx9q mIe5oFyxRjrhKEM6Tfv4FQ8 srn75dso0lVnkXXNvghwkBk V4FYagIKFzbjxfCQm7MLsmP BZdqUJ9MJHxqAGzB0WcECOa WS8ondn8STM5ZEhuWJIlBdU 8MBKwaJHmIHQadQneUFsqt2 09EDK7OaXsOZ5nR7Jpm1C6n L9zfIIwDFElhLCiPaIxCXEh ia4euULnMElwq6HyHWM6akF 0tXHzbVUbWBOvBwF3JKceKF 1bpx75QSFbPND4nf7avDFfv EsywgAfuYYjIOumU0UfKKYh d235CSInI1AcVEYgj3N4wsM hYeTkNQXnuAW4jiF0YWWhQN 6vervsz1vpJYgjRVkmWUYir qV8szF9LQKorPAxS2NvkY1k EZFyCY4aikubl9ooLJP1GTf rWUVcBAD7UcDlPDRld1Gjbj e1FpGek8QuyMTrTOkvZ19ty 274OLKibuOeK8vubLAandqm tUXrnaqcTLutufF7XKHkLSo exmeiMRIdZSrfD4efVzZjXV KajIkcSTaib5WfYUPdZPKoI dPhhQHqMBGdYxb1QQSxnPIw AMUiFkBbX9ynusonEuWKUNQ bz3yuC3ohkCDQfIAuT8IrKN hvbmUgTGluZTogNzEzLTYxN K57PZJ5KSQmzk24 CPT Code(s) (test code z7mwmOArQVWjdBY8CyQzRGR = 3357) xf8vdm6ZcfBWxsWYdWNqbzF GrtkHafl92lLH0qH78IV0zJ ZIrTqT5HRWugyK3Xaw6OQKg UOWklODqP912c0bfb8jexoH uxDQ4dBfcWHPydigqAzN3PM hvLSPbadcqQAx9VWnuOKFsa BF7TOPpqXYsF0FjCEVuSR8h dif0LBH4TBrzFVPrXyV0QZO tcWPyNWBiaZxdKNbvg936XO A6SlThMFRpzdPfqDhlvO4uL pAxZOG4EJSfVKeiILW7 CLINICAL HISTORY (test o6ykgMNlYSVbyTK7HvYhQVM code = 3356) ia9tbc6XwhMUiqGWhEWgrwJ ZbydAujt29xJS6cC69TO0uR PBjOdZ0IWIxsaU1Esg1GDNg KPQrpPEpB947z9ioy9hbkwW idSC5pZvsDDRnfzxpUsS2KG nyKMIkfmozMVh0SHccMZMwd PG8SAGlqGRyP9LjCMCnQS0v znc3EVV3YOjsTXNlAeX8QYC iaDHzMBAnkGznTIolg647DE R3MgHwAKDihgSllPoffF6iM nMyMCBBdHJpYWwgZmlicmls dGC3kQ4vTNJtbIMsGUmuodR qefAakG0lqGQpuHIaMA1sdZ xwYXJ9 SPECIMEN SOURCE (test q8jecORjIXVpyHL3GkFpIJH code = 3377) db7wos9HncCPxuPAsGQuqrT DizkCeku47kAH0tT08MA0gQ HCjRpI6CPHmdiZ2Jvd2YIKw TQRqaIDcA356i3oeg7jcoxJ aaIM2mDqlMIUdnnzyNhD6LT psVBMdjrigLVt5IDcqGLSif FI6BNPetSKhI0HxHMZtUC2t zxn2IIM7HTwkFFUxMrJ0UBO jrQItUEGeeLzhBEmam628WW B5DxEaOMIyruFfiFvolI7eU nMyMCBNaXRyYWwgdmFsdmVc cGFyfQ== GROSS DESCRIPTION x9qafIJjWDYzdZIwTaQsPSX (test code = 3366) lCZXiz6ijYDAsaXNvHwMkVx NcZnRuYmpcdWMxXGRlZmYwe 5iwo071zMVnu8duWYEaMhW0 oUMeCBBibMPoI150h4nnw9b yraNryTC5XMSjLJO4YIbcxi RosgZ8SIajsXDeZyX5VDuhh qBbBBadbsYfjyOpKef8COId D494OMC1fFyqe9gmCAF6JYV tHWZxZpVaDw2ntDTmI117HT SsKRFHZHFihAf2GQWtzpHit nIozIYHp114Z747i5ghKROs urNtkBuMpbejx8ihM055NRX hcGVydzEyMjQwXHBhcGVyaD Z9AWUjKS5mxhwkQtKuHB0gv djaKwBnFB2rgfh2QuCoBV7p cmdiNzIwXGhlYWRlcnkwXGZ pz8CnunbsNR5tU2Sna7U6dV 9maXRcZGVmdGFiNzIwXGZvc c0tkUIyFEbtp0WlXRF9veB7 vDDliSSlTFUwUP09Tieym6K aFwmxLST6PYAfxqKhn8Krh4 huGqVhwiIcZ4bbO2OnUDZwA FPfNVEzYfAiioPxs7Gyw6Ho cKCvfHp8f8okLEIpEIBhfRz oj0bzATU8RHYuH3S2rJGqo1 ihNLsyJVHcsBC8romwCYneR MYaobW6wlzqDEzeRTVgyVZ4 enmrVLgiBEElXsN2emssTHo qNJSbYCT8HGblw450ANF4ID xzYmtwYWdlXHBnbmNvbnRcc GduZGVjXHBsYWluXHBsYWlu XGYwXGZzMjRccWxccGxhaW5 sTeRgKeVbFDiiNP7xWDNoZ2 hewLKxUQKtZMGiO2ayPfNwo R3diWnbDMejkyAhNOGiFLQq X4BrtwPvVONmXRPwNVvrZxW qSPNfo2l2aAV5uGFgoIR9qZ YivIseYiBfXV3ehROxSS1zF FemFMtzgtIea9RdYY96hXAv sfDdicZbPo0uiFCbuLK1ECh 2ZSIgaXMgYSAzLjcgeCAzLj WunEIxHgTuF08mdNOuJV6ug CiexzOhu5C7hY9nTP1zQFjw tHhxwy22iBt3VGvgq7wrD9u 5wWblpDbqQ9rzljMrCDVqcB B1wJXrXNTjq5Q7JV4lXXQaR CLiPMwlFAWin47isKhdTU3m rO74OG7tUAZ4uNHxwWSkKVW 0xRbyr8HxQHPhT6rlbtXjUL V0ZD8viH2gJCOzIWIKeHUwc 7TqZ3arUN9qaTUhl1NpqZEi vRlwi8HavHsnsiAiRNEiVTE noiGyin1froMkVZSti63vJC TkRLuoRX22iOBfHBCfKQTOJ IEpIMLuvpMdmRx2YJCeGLD5 cQ7gqhAfptRot1MiwTx1yLB kIGluIEExLlxwYXJccGFyIE IuANnpMFUdR1RzkY1rXZ4FZ eruKSGcRAIID3XuJ66eyWEs fQ== MICROSCOPIC v9guxFTwTZLxtTJ7YqQgSMO DESCRIPTION (test code af2uko6WfaZQuuMLkZMjyjE = 3371) HewfBoxv13cJW1dR15WX4rR YWyBtA0PNEookN0Pzx7EEOj DNOydAWzH085k1fsp4cnakY ayFV1vLdlSXTobtimWoJ7MS usQHVhvakgNVc3PTvyUHEst MF2QSCekTJtW7WxOWVdYB5u npv8ONA6YZawIXBxZzO2JEU biZIjTAPdhFcdUFico537WI G1TbLrGXJbcmCxaNvxvE7aA bMsTCGZEUBsa5IdDJYhVQMh cn0= Gross assessment was [facility] performed at ([facility], code = 2777) Department of Pathology, [address] [place] [address], Technical component [facility] was performed at ([facility], code = 2778) Department of Pathology, [address] [place] [address], Professional component [facility] was performed at ([facility], code = 2779) Department of Pathology, [address] [place] [address], [facility] [id number] 14:59:34 Test Item Value Reference Range Interpretation Comments Case Report (test code Surgical Pathology = 104) Report Case: [id number] Authorizing Provider: Colby Bui, Collected: 09/07/2021 12:07 PM Ordering Location: [facility] Received: 09/07/2021 03:40 PM PERIOPERATIVE SERVICES Pathologist: Ciro Diamond MD Specimen: Mitral Valve, MITRAL VALVE DIAGNOSIS (test code = z3kryLPaKXQuw3udAGYzoFK 3220) uZzEwMzNcZnRuYmpcdWMxIH tccnRmMVxlcGljOTYwMVxhb qCoVAZzpPAfX6FzcmecIEvu DB4iPE2yaBvwxLLnyTNzSNG nOnZrq6vhz906xUOyx9rcAX JPmoufkBw0wUakH50rt8E8H jcfP60eyJZfYOM6YQKcUENo yYFwOTOqAPP4JEUbpFHdO6x gZYOnFI4dfdjtCSpnIOciQG HqeLP7NQFktCQaB7OjFOVeF PusWLIiuho4NpGqLl8psYMt eTcyMFxwYXJkXHBsYWluXGZ zMjAgTUlUUkFMIFZBTFZFLC OWWYJIV5dKZtejjBXtMQPKC YEYBNXEQLKSL9DOPSMQFVTJ GKUTJ3PABCNHWNqHKKXYTEH LJ8OQPSARYACVR0VWWHAYNP vCYIIPW3UXHM0DPVPiah85F HL2DyXxi4Z7WVW3ZWNrAFJt e7cuOPUiwOUzXcDzAzHhPaT kIjtfuLQmAPKfDnRvf6tal6 06iIGcw8dgSLTeMjU4qHUfA ORmjCYgP572FAOgLZumc9ub j6CjSMBkaSFyf0O2YISWfkh qpFa8tRuoI46ms8U7YsjlU6 kzVWRcUIQnE5LtKL0mVQDxZ ny2WCA5NQB7LPShSEYuT5Fe FH9pTMQhsRWtJPc1v4efuAw vLDMfFFR9q8rxLUiyetPdWB 2mzz8zaGn9p8vhdmYhHSHqC PQguOJZUJWeA8SzePfpYy4e sNa6fEgsCbjfECV7Kgn2RS6 lvx74kge4gZzsBNRbziltEi D3MKafOTPxjkdxCGs4BIwtA UDapAW4ATMhfKGpC2GrFJHg EG7fzcn8CNX2SSrsKIGjJaQ 6LMVgsEQnIXXaqGwbXKugj8 60ZBP7QnFbHX3rY5Xpd6S4o I3vzWCqGQLmsYHdPkSeNJIh aj8nyIIjLMagm8QfBYZ3owC 2lYKjtYUmVWKiWaV2VRuoAY 1qht24PUMdWFD7qb2skFFas QruekVoiGZgCKtpF6BrWCPk h301TVIqI4CuVBTct2B0jzB kLeBxYSKbiZG2pgQ8DRRzTH 3xszgqd8gxIRdbLLciRVSsw tY3ngK0FNUwtHMeX6ZeeW0y KIViZF7tuvsmr8fuGEE5SJu vNIUsHXO9ZiZwLFLij2Oblc g4WsIci8TxhAXrPHqeU44lh 894KUWruvXqS2ercQVxvjni pUHqacxcXHgsouT5QPTbAAn lsttuICXzBAfmF9ycHrNwDY QnlNjjMFbri4GfCVXaUISlY lZvvOXyJHCpPpy0AIBngTVp TLChMhRnI2qbpwqjCfZDWDF gq7bpO2wpiGUDlHEsG6NwQJ hvbmUgTGluZTogNzEzLTYxN T82DKG7CGXyxn66 CPT Code(s) (test code y6hirGMeSAJbrYI8QsInRXG = 3357) bp6rev1FoqRRhhMCmBQdtrJ IkcuJlyj52hKV5fR91QK3nV BIyHoV1RALepoJ9Okf0XBYn PKGhoAMaX708a8tgh6kojjI awVM6dDkbLCDjfjdwFbW1BD hnUBCsomcxVSo1ZPwuZLOmq CT0XOWbqLRiI9WgQWUsMO1h ppa1OYN6WJqoXHHuZvJ9XPG lwPRoBYRjaCwaBNdha279CU T5MnCeYMYjckYamEmdbV6mL gYvVHE9YQWbTGhbIUI2 CLINICAL HISTORY (test g2uimWChPEOduIF9AnOzQZX code = 3356) jn7epy3IxyMJqdXNiBWjbqO EtuoUlzh15nHO4lB32YM5hL HLaTnL8UAKuuiG9Pjr6GFJw TJEdmDNhT639f5frm4cwwbH xfHG8cHuqKPUavxgzMrE3GD elVYFndtqbLLi2WNcgDAMwx HU3BQQisXIwN8AwSAHfUJ3u mfj5FCK4GSbhVMVbSbE4UOH uzGMqHKZfqLvvZRhao664UJ S2DlGmYCIsbmRbhDxcuP3zO nMyMCBBdHJpYWwgZmlicmls oCX3wO5nZLGnfRVoIOijjtJ sxuBqqJ2beTWvxNCvII8rmX xwYXJ9 SPECIMEN SOURCE (test y0kspBSlDIUonRP0DhQnGMP code = 3377) pl2qip3VrcONrsPMsMWjaxA SybnBdrn42vDP6fW04OG3eG CKxBuF0XXMzjtS4Fha2ARYi HBCssGFsT632l1yee2trxnL ndAJ2jXioGBUqqosmKcC3IE viFPEogchiGRf8JEqhGEGwj IB9HUXhmVDwT9SqODAzNI0u igx7QCP9VOiqSQBbJkH7QYC dpSFzMLDgzNyeIXsjc729AO E3EjCmDQHfazRppYxzeV5xK nMyMCBNaXRyYWwgdmFsdmVc cGFyfQ== GROSS DESCRIPTION q8nyiIXrVPSelXMnQaYmFGW (test code = 3366) hMVMou7itVVCriSQeFlBxXt NcZnRuYmpcdWMxXGRlZmYwe 8ppq805yZXzx1vsBOYsVzR5 hSPgXKHzxLLwL635i7jii5y ccnQgwWC4JSOcORS5IAdxmi QnemT4VAvrkQVbOcT8OYbgr vHyBQumofUcwoTqZha7NZBw P035GKI2nDlqe5adNOK6TWL eOCSuNsDkOk6dpEXaS204HE NsXNSUSHVfsGt9EZBpotImd fVrgXIPh322H430k4onOFKf xmUinKmJafcbg0diX135CKG hcGVydzEyMjQwXHBhcGVyaD Q4JRGpQI1hfafbLcLnMW8it dhuYxGdWC4ngwx0GoYpRK4c cmdiNzIwXGhlYWRlcnkwXGZ xl6UwzynyCZ7kQ8Dcd0J0rL 9maXRcZGVmdGFiNzIwXGZvc y6whGVcGWekz7NjCZQ3hvQ7 sHBuaKXnIVFlOR97Udcwb3V nXkayCKS8NCGlnlAyb9Bpn6 sdPrIlhsNfD4kzS4FbUSFxX RBsVZNsXfJulzTgx1Jho0Dp vVAlyUn1n7ayWJOqCIMilUa cu7wlOHV5FGAhY8V5vXAtd3 lpCFhaXOAqyMF3btjjBStyB WLqauN8izsdVDvpXQUwjHF8 ixwkJXhwLSKiHjH4tfaoZFe xTJPeKZU0NNzwr464UWW6AR xzYmtwYWdlXHBnbmNvbnRcc GduZGVjXHBsYWluXHBsYWlu XGYwXGZzMjRccWxccGxhaW5 cLrChCdIeWHnlMR6fGSZmJ8 bclLAgNARtXRJkX3jqMxZad W9pvLffLVlirvCwPSJnFAYf J7BpidKxDWPrIUBpKVkyQyS hUHIpu4s4mMI1rIEqvFZ4eK SyzVeiPgZhYZ6nqCXtXC8tO YyvLKqoppXoi6CwAD69nUIa weIxgdHoCu0kwPTdtYN7TKu 2ZSIgaXMgYSAzLjcgeCAzLj YwlMJsIrEgF92nyKCaPV1do MbxigCfl9G6uF6uKZ7dSTce jGfkck82yHo6MDfad1vvA5h 5wBcgeByzH4gzxmNbVCLbfQ L7lUWvKZNnh2G8EI2aSKTpW PBwKDttUGJgu34qzNfkDR6d yP52MH5jMUM8uXDmeMVdNNI 4fWhad3OsEJVcL0rleoLcNM Z6ZT9evK3wIVSxKJHCtUPsy 1IoD5fzRT4vdNHoj5LlyYEm lNiun2AhtMxkdvGyTRMyVLX owwAprx8rlnPdLIWgk69xDT NcGPzzRJ88dXXhIUIpTTOKY CPnJFPcgwVqjQj4LQQgGKV3 nN6kefZrtoRet3NxlPa1pIH kIGluIEExLlxwYXJccGFyIE FsKUxgVHLlD4UevL0sXQ8YW pdcIATzEJGJD8QrK43qiROc fQ== MICROSCOPIC c6ayjAQgFLAgoJS1ByYkXIC DESCRIPTION (test code hc5ktn3YjqHZryXUhRPnrnD = 3371) RbsuAihg58kWT1oM78ZM5hE TRkSkP0VSDnpwN8Wla8IFVi LWJxkJFrT412y2iyb0hiafL vgYY5dHczKWHhfyeoAbJ1UA evIYEuxaxzRWh1LMjpQVIki ZE4IMDrlLKhK1KhYRBiXW2b xli5JKT1NXcxMRKjZfJ7VQE haOMbJETadDxpVEzha274HA M0HkAyQCJhsgWnhVpuaR8oX hJrXAKHFLGvt5GcPKYdATBk cn0= Gross assessment was [facility] performed at ([facility], code = 2777) Department of Pathology, [address] [place] [address], Technical component [facility] was performed at ([facility], code = 2778) Department of Pathology, [address] [place] [address], Professional component [facility] was performed at ([facility], code = 2779) Department of Pathology, [address] [place] [address], [facility] [id number] 14:59:34 Test Item Value Reference Range Interpretation Comments Case Report (test code Surgical Pathology = 104) Report Case: [id number] Authorizing Provider: Colby Bui, Collected: 09/07/2021 12:07 PM Ordering Location: [facility] Received: 09/07/2021 03:40 PM PERIOPERATIVE SERVICES Pathologist: Ciro Diamond MD Specimen: Mitral Valve, MITRAL VALVE DIAGNOSIS (test code = j3vdpELxOROqz7viLZZviKD 3220) uZzEwMzNcZnRuYmpcdWMxIH tccnRmMVxlcGljOTYwMVxhb lWrQJLktHDmN6AeugmgJDzj KW9gWB1kbNrwgFFqxAXeFJQ cTpMlf1phk576hNNoq7kwJB AOxynkcEm8iWpgS81wi1I4T grbH22oyFSzSZS0NGXjPJLg qBBcOPPsDXA6LQGsaQKtP0m oTOKzTA2tiqrjLYbnJLljWG PmmDQ4ALCdgXWmD4QtPCQcI TqeMUVrcso9JkEdDn1ejTRs eTcyMFxwYXJkXHBsYWluXGZ zMjAgTUlUUkFMIFZBTFZFLC WDTERRS4cCOqhqqOGcMKLNB NLMXMJEMXKGR4CNDXQCBNWG PXYCN1DAYXFLOIkPSUWLAXN UV9VHTALWKKRRF0TLSQSQUY aZBFAVQ4LFEM9EUXVsix77L KF2JmXnd5E4AND5WQQrRJWc y3oiJGVtbDQbSlJvGkKvJjT eVbfrsOOaYXZlTrUsa6ozk8 27rVYwi9kwXCUhPaQ9iCVtU EZjsVHsQ201NWDoUGivt5jr e9ReRNDffTDbu9H9WQSPgmu okVu7bZheN96hn9J1BfenT3 igCQDfUNFnI4KaEY8dVWIlX kr0TUK4QGP7WXEaYVDdA3Ma AQ3nTONodNNaVCb2f7dyhLk pLUItIHK8q5lmDGkqjvNoVE 9vxx2raWt1a3whtkOnEPWhM SAnuNKDFTBcI1IeeQqgGp2r zCs6fHqbAvfvLIY5Smc9GB9 dxh28yxg7uSfiPSGdwbybNp O4TKqyDIQhoeraBNt2VHxmF ZVvgZP4ZETiuMHvH2TkNHXd TO3ckbe3OOP2KGmkLWLzTeS 2VSUlxWLrQPOpnHduVGjit5 19NNF4WqBdHO9fH5Viu2R1u V9hbSLeVBHgnIHrEjOvWMKm ck0haGMgJQldx9EnSAU3ubF 3mVLubVOdAYHuEuN9UIteIH 1syi19SQFlTZE0ho8tgKZwk GkxomNluOVgXVqpV6CnOHVf l904JULsM8YhVVCoc8F0piQ jIuAaVIPilSB6wlY9ZJQnAP 5ejrejt8gxLGaxHTqyYUAqy uV2qgE3GTHguKTiC3XvkH6u ZEKmXF1dikpur6dmCOD5BFw iWABjITS3PyLrPAOuf4Wvgt y3XsVfs6DzrLGeSJfdK94mz 750ONIrhvFyI7sefPQwxgcj uCJgzxiwEFzqhxV2JZHkYCh xxonwTTYfUKblI3ydRwSvNJ JpdDxaXFikr9LkCXPoQSBnC cCieBYdAOZsXck3SXAleCZe LEUoLvTyA0vbtobjMqDEBBE tk0ymV5tvtCYFjGUhU5BrVL hvbmUgTGluZTogNzEzLTYxN S37NOW9CFEgnn54 CPT Code(s) (test code w6thvRHuOLYppKF7JmXuKOC = 3357) sm2dvi8PnwFRyhFYxOJidyG HgvgCssx52vET6pM01PG5dM JQvWxJ2WSPguhP1Ako5FCKm GDGwlPOjZ430z0dzd7rpcqO cpSR5fIpfRFVlapdfScI6OQ qgXCOpietaLLt3NRujDIPxg XJ3NJCklNXeA2YvSBQpCU5s sdj6FAS7TLmxNATpMtR3GKA hrWGxCLOupYfuSCnkn723BH G5FbTwVNAicsFidQmrnW4xD nOpOIY4YVJzSPmeTVB7 CLINICAL HISTORY (test u5bloDPfYBDibOL6JiUdTXR code = 3356) ge1wfd0JarYWieHXaUOsqwH RloyXuit53zMG1dB06ZG2fF KYcBwP0YUZudwM1Hmy2FZHs AWTpvCHeS796s8ttj5tcjzH ffJJ6zEyqVEHsaizuRoV3MH caICAmfksgCBa0CDbaOWKvn ZA6JXAmjIHpH8ImKHNmBE2q umu1WCL7LKrnAHWfGbF4ORG ppPCkRLRulDkrLJjqr605RS Q2NyAyBKJfznMckLwceN4fW nMyMCBBdHJpYWwgZmlicmls bKQ1rX1wLOQjrBFdJIhmxcB exsXgoE8diBFnmRFuQW3nxO xwYXJ9 SPECIMEN SOURCE (test t1ifyZKdZYNkqVX0LkEoPUG code = 3377) mj0nwq7LeoZIcsTDpVYszgF RxuqCgpa20zXK9aR56OA7bP AGpJmL9GTWxbmO4Ugb1JJXf PDQexLCtH727b2vpm8ffzvN bvEG5iJozRMSxxkcfZbC8MJ bdSURuhmojDOu3KBqiVTTnu JP6LUOqaMEuG6ElDDReRZ2y nhh2DKA7FZrpLTJfZmI1SKP fpLUlHEVomTgeOIzbd565GX O8NxJxKUPliaJkaFflbL4vL nMyMCBNaXRyYWwgdmFsdmVc cGFyfQ== GROSS DESCRIPTION y5axmKUbLVDkkKRgUzDrZTK (test code = 3366) oUYMij9aiHTImcRDpGdMdAd NcZnRuYmpcdWMxXGRlZmYwe 9apa891lVEer8hiMGPtSpG6 hAUmAHIpyRUfA741o8iqb0v drsHuzQA7EZPdBUE8HXrjml SlvuH5IUqixYVyYjH3PQhye mSiCJjcifUdnrMqRgl0DNHt D934OPW2bRvzu5hyBFF3JJA aQCGiXzEqXg8tpXOlV915OA FaCJSFMGBdeJa9BAIexsJqj oFzrZKLi930J586v2lwEMLb zeXveBkHbvfws2ukU909ANB hcGVydzEyMjQwXHBhcGVyaD Y2TUUaCK6ywyszBlAsLM6ar ztfNjXyOK9knbb5JpYrDP5f cmdiNzIwXGhlYWRlcnkwXGZ ss0BtxcwfWY9iF9Dwf2S6oZ 9maXRcZGVmdGFiNzIwXGZvc l5uuHUmYZxrt6JjBWE2czH2 xEDxgMJyMRDfXQ05Cxgvv3D iHvgsOXV3KETtydQxz9Vna6 pzKfQeawSbE0dsV0VpSUXvN BRtJZByOeRqzjOma4Rhm0Um xASgeMd8x0lkWTBvWSYgcSw fl6yfTYQ3SJEsR6H4kMMna0 lkSLkuOSMhmWL1rxrqYGeuA QHuqpL9wbkgZQrmSNUvbFM1 nsvaMHosZRWqEvM7gdsqDWn mUKLcJQT7WHbit646ZNL5VQ xzYmtwYWdlXHBnbmNvbnRcc GduZGVjXHBsYWluXHBsYWlu XGYwXGZzMjRccWxccGxhaW5 aUfNkQmCbUBduZK7sGQAhX8 asbJEvOGCmVHYeJ4vaHiJzk A9utTpiKBrzthFxMINfEFSr U2FhesGaCUIyKNZvXZnoIwL tCZZze8j1sOU7xTNvtHU6bV EvfWayAcVeIB8usRSeGR6cF IfcMOzkmtDjn8XtSV28ePNu owEnryVsHv2yeBCluNI1QKf 2ZSIgaXMgYSAzLjcgeCAzLj QztHRgHfOcU80xuWFhHM9ce LieahPyl2I3zX4iNE9lPCcl mRyfzj68oYv3OAnqo2pdI5u 8gBintZhkW8japyMuGHQrkF E4fSZnXFNxi0I3KO4vRWVqK GFxJWqrSZVhj44ygXbwOU5x qT05YN2tITP6vRBiyLMsVFU 8mXzzo5GzOCFyY0xcngRjBM P4PE8ohP5rLRHyHGFWhOIin 6LpM9kbUB0ilOCkd5HwjZKh yAnlw9DmlVijirXgYMYhHUX kzbYtjn3omgFcZPFgx99fRT RgRNpwBT45tWIsGYJoLPSPO QUiETUwreWhrZu3NYPzIXI2 dO5oymHmmsNkn8HavNg6wZV kIGluIEExLlxwYXJccGFyIE ZlDRokBPXfV8JtpS2lCN2CX iahLBVeAGDVR8RwW03ahSJn fQ== MICROSCOPIC a9rsaDXqQUJnsUB1AcAnDRZ DESCRIPTION (test code qf3yvl6FnjHVfhSWdHYkumJ = 3371) ChgaZycd09tIH2wC33BQ7eL MTvAdJ3IXGsomA7Gaf6JJXc TEGewJRdH701m0lij6wbzgC hmXN1nAgrAAWyhxmzMnE4LT scEZEmawndORw5FCcoKUWve OS5ETOhoHFzK7PuUTXcMG7z gqn4DUE3VGspLNZrVmX2ICA dbTCxJNOlqRrtVEoee093TH R2LjDmNMCyrvCjrHskeM9gE aUnDZKAYHGea6GkGEMbHBLg cn0= Gross assessment was [facility] performed at ([facility], code = 2777) Department of Pathology, [address] [place] [address], Technical component [facility] was performed at ([facility], code = 2778) Department of Pathology, [address] [place] [address], Professional component [facility] was performed at ([facility], code = 2779) Department of Pathology, [address] [place] [address], [facility] [id number] 14:59:34Surgical Pathology Report Case: [id number] Authorizing Provider: Colby Bui, Collected: 09/07/2021 12:07 PM Ordering Location: [facility] Received: 09/07/2021 03:40 PM PERIOPERATIVE SERVICES Pathologist: Ciro Diamond MD Specimen: Mitral Valve, MITRAL VALVE MITRAL VALVE,EXCISION:VALVULAR TISSUE WITH DEGENERATIVE CHANGES AND FOCAL CALCIFICATION Signing Pathologist Direct Phone Line: [phone] signed by Ciro Diamond MD on 09/12/2021 at 2:59 [id number] fibrillation, mitral valve insufficiencyMitral valveA. Received fresh labeled with the patient's name, medical record number and "mitral valve" is a 3.7 x 3.4 x 0.1 cm triangular portion of yellow-white, slightly thickened valvular tissue. There is a small amount of attached, thickened chordae tendineae. The specimen is serially sectioned and no gross lesion are identified. Ditching Machine Operator sections are submitted in A1.SASHA Graf, URSULA ([facility])cmPerformed.[facility], Department of Pathology, [address] [place] [address], [facility], [facility] of [facility]ology, [address] [place] [address], [facility]igrMiller [facility], Department of [facility]ology, [address] [place], [place] [address], WAVFMYF, [id number] 13:07:17 Test Item Value Reference Range Interpretation Comments CALCIUM IONIZED (BEAKER) (test 1.12 mmol/L 1.12-1.27 code = 698) PH, BLOOD (BEAKER) (test code = 7.49 1810) [id number] 13:05:22 Test Item Value Reference Range Interpretation Comments Potassium (test code = 4.1 meq/L 3.5-5.1 Speci men 2823-3) slightly hemolyzed EMERSON (test code = EMERSON) Flasher Adjuster ID - MARZENA M Lab Interpretation Normal (test code = 60066-6) [facility]:05:22 Test Item Value Reference Range Interpretation Comments Potassium (test code = 4.1 meq/L 3.5-5.1 Speci men 2823-3) slightly hemolyzed EMERSON (test code = EMERSON) Flasher Adjuster ID - MARZENA M Lab Interpretation Normal (test code = 78413-2) [facility] 13:05:22 Test Item Value Reference Range Interpretation Comments Potassium (test code = 4.1 meq/L 3.5-5.1 Speci men 2823-3) slightly hemolyzed EMERSON (test code = EMERSON) Flasher Adjuster ID - MARZENA M Lab Interpretation Normal (test code = 47759-7) [facility] 13:05:22 Test Item Value Reference Range Interpretation Comments POTASSIUM (BEAKER) 4.1 meq/L 3.5-5.1 Specimen slightly (test code = 379) hemolyzed Flasher Adjuster ID - MARZENA [id number] 13:05:21 Test Item Value Reference Range Interpretation Comments MAGNESIUM (BEAKER) 2.2 mg/dL 1.6-2.6 Specimen slightly (test code = 627) hemolyzed Flasher Adjuster ID - MARZENA [id number] 13:05:21 Test Item Value Reference Range Interpretation Comments PHOSPHORUS (BEAKER) 2.6 mg/dL 2.3-4.7 Specimen slightly (test code = 604) hemolyzed Flasher Adjuster ID - MARZENA MPOCT-GLUCOSE [id number] 11:29:26 Test Item Value Reference Range Interpretation Comments POC-GLUCOSE METER 126 mg/dL 70-110 H : Notified RN/MD: (BRAXTON) (test code = TESTED AT [facility] 6720 1538) [facility], [address]: Flasher Adjuster/Techni bart ID = [id number] for PH ABDOULAYE ROJAS POCT-GLUCOSE [id number] 08:03:15 Test Item Value Reference Range Interpretation Comments POC-GLUCOSE METER 98 mg/dL 70-110 : Notified RN/MD: TESTED (BRAXTON) (test code = AT [facility] [address] 6918) [facility], [address]: Flasher Adjuster/Techni bart ID = [id number] for ABDOULAYE KATZ Venous doppler arm, [id number] 06:52:54Ejection FractionSLEH ECHO HEARTLAB [facility] Hospital[facility], [id number] 06:52:54Ejection FractionSLEH ECHO HEARTLAB [facility], [id number] 06:52:54Ejection FractionSLEH ECHO HEARTLAB [facility] CenterRAD, CHEST, 1 VIEW, NON DEPT 2021-09-12 06:05:00while patient is intubated or has chest tubes.Reason for exam:->Status post CV SurgeryShould thisbe performed at the bedside?->Yes [facility] 1945 Sex: MFINAL [...] Osullivan Verified Date/Time: 09/12/2021 06:05:44 TIC FUNCTION [id number] 04:15:05 Test Item Value Reference Range Interpretation [...] (test code = 46 U/L 6-55 347) Flasher Adjuster ID - MARZENA [id number] 04:15:04 Test Item Value Reference Range Interpretation Comments MAGNESIUM (BEAKER) (test code = 2.4 mg/dL 1.6-2.6 627) Flasher Adjuster ID - MARZENA [id number] 04:15:04 Test Item Value Reference Range Interpretation Comments PHOSPHORUS (BEAKER) (test code = 3.3 mg/dL 2.3-4.7 604) Flasher Adjuster ID - MARZENA MBASIC METABOLIC [id number] 04:15:03 Test Item Value Reference Range Interpretation [...] (test code = 697) EGFR (BRAXTON) (test 111 mL/min/1.73 ESTIM ATED GFR IS code = 1092) sq m NOT ACCURATE CREATININE CLEARANCE IN PREDICTING GLOMERULAR FILTRATION RATE . ESTIMATED GFR I S NOT APPLICABLE FOR DIALYSIS PATIEN LANDEN. Flasher Adjuster ID - MARZENA MPT/[id number] 04:11:05 Test Item Value Reference Interpretation Comments [...] (test code = 47.6 See_Comment H [Automated 12433-7) message] The system which generated this result [...] valves. Lab Interpretation Abnormal (test code = 61414-6) [facility]PT[facility][id number] 04:11:05 Test Item Value Reference Interpretation Comments [...] (test code = 47.6 See_Comment H [Automated 30294-7) message] The system which generated this result [...] valves. Lab Interpretation Abnormal (test code = 94857-0) [id number] 04:11:05 Test Item Value Reference Interpretation Comments Range Protime (test code = 15.8 See_Comment H [Autom ated 5902-2) message] The system which generated this result transmitted reference range : 11.9 - 14.2 seconds. The reference range was not used to interpret this result as normal/abnormal . INR (test code = 1.28 See_Comment [Automated 6331-6) message] The system which generated this result transmitted reference range : <=5.90. The reference range was not used to interpret this result as normal/abnormal . PTT (test code = 47.6 See_Comment H [Automated 26903-4) message] The system which generated this result [...] valves. Lab Interpretation Abnormal (test code = 47123-3) [id number] 04:11:05 Test Item Value Reference Range Interpretation [...] mechanical heart valves.CBC W/PLT COUNT & AUTO [id number] 04:06:36 Test Item Value Reference Range Interpretation [...] (BEAKER) (test code = 2801) Blood gas, [id number] 04:00:34 Test Item Value Reference Range Interpretation Comments pH, Arterial (test code 7.47 7.35-7.45 H = 2744-1) pCO2, Arterial (test 33 See_Comment L [Autom ated message] code = 2019-03) The system [employer] generated this result transmit dante reference range : 35 - 45 mm Hg. The reference range was not used to interpret this result as normal/abnormal . pO2, Arterial (test 144 See_Comment H [Automa dante message] code = 2703-7) The system [employer] generated this result transmit dante reference range [...] 21 Lab Interpretation Abnormal (test code = 19038-1) [facility], [id number] 04:00:34 Test Item Value Reference Range Interpretation Comments pH, Arterial (test code 7.47 7.35-7.45 H = 2744-1) pCO2, Arterial (test 33 See_Comment L [Autom ated message] code = 2019-8) The system [employer] generated this result transmit dante reference range : 35 - 45 mm Hg. The reference range was not used to interpret this result as normal/abnormal . pO2, Arterial (test 144 See_Comment H [Automa dante message] code = 2703-7) The system [employer] generated this result transmit dante reference range [...] 21 Lab Interpretation Abnormal (test code = 39401-3) [facility], [id number] 04:00:34 Test Item Value Reference Range Interpretation Comments pH, Arterial (test code 7.47 7.35-7.45 H = 2744-1) pCO2, Arterial (test 33 See_Comment L [Autom ated message] code = 2019-8) The system [employer] generated this result transmit dante reference range : 35 - 45 mm Hg. The reference range was not used to interpret this result as normal/abnormal . pO2, Arterial (test 144 See_Comment H [Automa dante message] code = 2703-7) The system [employer] generated this result transmit dante reference range [...] 21 Lab Interpretation Abnormal (test code = 32110-6) [facility], [id number] 04:00:34 Test Item Value Reference Range Interpretation [...] (test code = 1819) 21.0 Lactic Acid, [id number] 03:57:33 Test Item Value Reference Range Interpretation Comments Lactate, Art (test code = 0.8 mmol/L 0.5-2.2 2874) EMERSON (test code = EMERSON) Flasher Adjuster ID - MARZENA M Lab Interpretation (test Normal code = 42936-7) [facility] HospitalL[facility], [id number] 03:57:33 Test Item Value Reference Range Interpretation Comments Lactate, Art (test code = 0.8 mmol/L 0.5-2.2 2874) EMERSON (test code = EMERSON) Flasher Adjuster ID - MARZENA M Lab Interpretation (test Normal code = 20251-5) [facility], [id number] 03:57:33 Test Item Value Reference Range Interpretation Comments Lactate, Art (test code = 0.8 mmol/L 0.5-2.2 2874) EMERSON (test code = EMERSON) Flasher Adjuster ID - MARZENA M Lab Interpretation (test Normal code = 77874-0) [facility] HospitalLACTIC ACID, [id number] 03:57:33 Test Item Value Reference Range Interpretation Comments LACTATE BLOOD ARTERIAL (2) 0.8 mmol/L 0.5-2.2 (BEAKER) (test code = 2874) Flasher Adjuster ID - MARZENA MCALCIUM, [id number] 03:56:36 Test Item Value Reference Range Interpretation Comments CALCIUM IONIZED (BEAKER) (test 1.13 mmol/L 1.12-1.27 code = 698) PH, BLOOD (BEAKER) (test code = 7.48 1810) [id number] 21:01:53 Test Item Value Reference Range Interpretation Comments MAGNESIUM (BEAKER) (test code = 2.2 mg/dL 1.6-2.6 627) Flasher Adjuster ID - DBBASIC METABOLIC [id number] 21:01:52 Test Item Value Reference Range Interpretation [...] S NOT APPLICABLE FOR DIALYSIS PATIEN TS. Flasher Adjuster ID - DBHemoglobin and pietagbgvo3194-82-30 20:37:40 Test Item Value Reference Range Interpretation [...] = 4544-3) EMERSON (test code = EMERSON) Flasher Adjuster ID - [id number] Lab Interpretation Abnormal (test code = 86065-7) [facility] HospitalHemoglobin and [id number] 20:37:40 Test Item Value Reference Range Interpretation [...] = 4544-3) EMERSON (test code = EMERSON) Flasher Adjuster ID - [id number] Lab Interpretation Abnormal (test code = 73647-4) [facility] HospitalHemoglobin and [id number] 20:37:40 Test Item Value Reference Range Interpretation [...] = 4544-3) EMERSON (test code = EMERSON) Flasher Adjuster ID - [id number] Lab Interpretation Abnormal (test code = 99354-9) [facility] HospitalHEMOGLOBIN AND [id number] 20:37:40 Test Item Value Reference Range Interpretation Comments HEMOGLOBIN (BEAKER) (test code = 8.3 GM/DL 13.7-17.5 L 410) HEMATOCRIT (BEAKER) (test code = 26.6 % 40.1-51.0 L 411) Flasher Adjuster ID - [id number]-GLUCOSE [id number] 20:36:55 Test Item Value Reference Range Interpretation Comments POC-GLUCOSE METER 110 mg/dL 70-110 : TESTED A T [facility] 6720 (BEAKER) (test code = [facility], 1538) 87894: Flasher Adjuster/Techni bart ID = [id number] for MA BEVERLEY CHAUDHRY POCT-GLUCOSE [id number] 16:19:31 Test Item Value Reference Range Interpretation Comments POC-GLUCOSE METER 127 mg/dL 70-110 H : TESTED A T [facility] 6720 (BEAKER) (test code = [facility], 1538) 36143: Flasher Adjuster/Techni bart ID = [id number] for PH ABDOULAYE ROJAS [id number] 12:45:58 Test Item Value Reference Range Interpretation Comments MAGNESIUM (BEAKER) (test code = 2.4 mg/dL 1.6-2.6 627) Flasher Adjuster ID - [id number] 12:45:58 Test Item Value Reference Range Interpretation Comments PHOSPHORUS (BEAKER) (test code = 2.7 mg/dL 2.3-4.7 604) Flasher Adjuster ID - RMBASIC METABOLIC [id number] 12:45:57 Test Item Value Reference Range Interpretation [...] S NOT APPLICABLE FOR DIALYSIS PATIEN TS. Flasher Adjuster ID - RMCALCIUM, [id number] 12:25:40 Test Item Value Reference Range Interpretation Comments CALCIUM IONIZED (BEAKER) (test 1.09 mmol/L 1.12-1.27 L code = 698) PH, BLOOD (BEAKER) (test code = 7.46 1810) Oxygen saturation, [id number] 12:25:23 Test Item Value Reference Range Interpretation Comments O2 Saturation (Measured) (test code = 53.2 % 29610-5) [facility] HospitalO[facility] saturation, [id number] 12:25:23 Test Item Value Reference Range Interpretation Comments O2 Saturation (Measured) (test code = 53.2 % 68047-7) [facility] HospitalOxygen saturation, [id number] 12:25:23 Test Item Value Reference Range Interpretation Comments O2 Saturation (Measured) (test code = 53.2 % 76837-6) [facility] HospitalOXYGEN SATURATION, [id number] 12:25:23 Test Item Value Reference Range Interpretation Comments O2 SATURATION (MEASURED) (BEAKER) 53.2 % (test code = 1455) POCT-GLUCOSE [id number] 11:12:10 Test Item Value Reference Range Interpretation Comments POC-GLUCOSE METER 87 mg/dL 70-110 : TESTED A T [facility] 6720 (BEAKER) (test code = [facility], 1538) 72019: Flasher Adjuster/Techni bart ID = [id number] for HINT PABLITO VANCE POCT-GLUCOSE [id number] 08:30:46 Test Item Value Reference Range Interpretation Comments POC-GLUCOSE METER 120 mg/dL 70-110 H : TESTED A T [facility] 6720 (BEAKER) (test code = [facility], 1538) 86927: Flasher Adjuster/Techni bart ID = [id number] for PH ABDOULAYE ROJAS OXYGEN SATURATION, [id number] 06:27:31 Test Item Value Reference Range Interpretation Comments O2 SATURATION (MEASURED) (AKER) 54.6 % (test code = 1455) HEPATIC FUNCTION [id number] 04:48:25 Test Item Value Reference Range Interpretation [...] Specimen moderately (test code = 347) hemolyzed Flasher Adjuster ID - KEARA [id number] 04:48:24 Test Item Value Reference Range Interpretation Comments PHOSPHORUS (BEAKER) 2.8 mg/dL 2.3-4.7 Specimen moderately (test code = 604) hemolyzed Flasher Adjuster ID - KEARA WBASIC METABOLIC [id number] 04:48:24 Test Item Value Reference Range Interpretation [...] S NOT APPLICABLE FOR DIALYSIS PATIEN TS. Flasher Adjuster ID - KEARA [id number] 04:48:23 Test Item Value Reference Range Interpretation Comments MAGNESIUM (BEAKER) 2.1 mg/dL 1.6-2.6 Specimen moderately (test code = 627) hemolyzed Flasher Adjuster ID Patrick SARAH WPT/[id number] 04:45:21 Test Item Value Reference Range Interpretation [...] mechanical heart valves.CBC W/PLT COUNT & AUTO [id number] 04:41:38 Test Item Value Reference Range Interpretation [...] (BEAKER) (test code = 2801) LACTIC ACID, [id number] 04:32:15 Test Item Value Reference Range Interpretation Comments LACTATE BLOOD 1.0 mmol/L 0.5-2.2 Specimen moder ately ARTERIAL (2) (BEAKER) hemoly zed (test code = 2874) Flasher Adjuster ID - KEARA WCALCIUM, [id number] 04:12:20 Test Item Value Reference Range Interpretation Comments CALCIUM IONIZED (BEAKER) (test 1.08 mmol/L 1.12-1.27 L code = 698) PH, BLOOD (BEAKER) (test code = 7.51 1810) BLOOD GAS, [id number] 04:12:14 Test Item Value Reference Range Interpretation [...] (test code = 1819) 21.0 OXYGEN SATURATION, [id number] 04:12:09 Test Item Value Reference Range Interpretation Comments O2 SATURATION (MEASURED) (BEAKER) 57.4 % (test code = 1455) RAD, CHEST, 1 VIEW, NON [id number] 03:17:00while patient is intubated or has chest tubes.Reason for exam:->Status post CV SurgeryShould thisbe performed at the bedside?->Yes [facility] 1945 Sex: MFINAL REPORT RAD, CHEST, 1 VIEW, NON DEPT INDICATION: Status post CV Surgery COMPARISON: Prior day's exam FINDINGS: Portable frontal view of the chest. IMPRESSION: Support Lines: Stable. Lungs and pleura: Unchanged airspace and pleural opacities. No pneumothorax.Heart and mediastinum: Stable contours. Stable surgical changes.Additional findings: None. Signed: Rm Nassar Verified Date/Time: 09/11/2021 03:17:44 BASIC METABOLIC [...] S NOT APPLICABLE FOR DIALYSIS PATIEN TS. Flasher Adjuster ID - [id number] 22:33:35 Test Item Value Reference Range Interpretation Comments MAGNESIUM (BEAKER) 2.5 mg/dL 1.6-2.6 Specimen slightly (test code = 627) hemolyzed Flasher Adjuster ID - DBPOCT-GLUCOSE [id number] 22:18:05 Test Item Value Reference Range Interpretation Comments POC-GLUCOSE METER 113 mg/dL 70-110 H : TESTED A T [facility] 6720 (BEAKER) ([facility] 1538[facility] 33684: Flasher Adjuster/Techni bart ID = [id number] for ERASMO PORRAS HEMOGLOBIN AND [id number] 22:16:52 Test Item Value Reference Range Interpretation Comments HEMOGLOBIN (BEAKER) (test code = 8.3 GM/DL 13.7-17.5 L 410) HEMATOCRIT (BEAKER) (test code = 25.3 % 40.1-51.0 L 411) Flasher Adjuster ID - [id number]-GLUCOSE [id number] 17:01:08 Test Item Value Reference Range Interpretation Comments POC-GLUCOSE METER 116 mg/dL 70-110 H : TESTED A T [facility] 6720 (BEAKER) (test code = [facility], 1538) 62984: Flasher Adjuster/Techni bart ID = [id number] for SERAFIN ATWOOD 2D Echo W/Doppler(CW/PW/Color)2021-09-10 16:05:16Ejection FractionSLEH ECHO [facility]Do[facility](CW/PW/Color)2021-09-10 16:05:16Ejection FractionSLEH ECHO [facility]ARTLAB [facility] W/Doppler(CW/PW/Color) 2021-09-10 16:05:16Ejection FractionSLE ECHO [facility]ARTLAB [facility] CenterOXYGEN SATURATION, [id number] 15:40:36 Test Item Value Reference Range Interpretation Comments O2 SATURATION (MEASURED) (BEAKER) 79.1 % (test code = 1455) [id number] 13:24:14 Test Item Value Reference Range Interpretation Comments MAGNESIUM (BEAKER) (test code = 2.2 mg/dL 1.6-2.6 627) Flasher Adjuster ID - PIAYA LBASIC METABOLIC [id number] 13:24:13 Test Item Value Reference Range Interpretation [...] S NOT APPLICABLE FOR DIALYSIS PATIEN TS. Flasher Adjuster ID - PIAYA LCALCIUM, [id number] 13:05:15 Test Item Value Reference Range Interpretation Comments CALCIUM IONIZED (BEAKER) (test 1.06 mmol/L 1.12-1.27 L code = 698) PH, BLOOD (BEAKER) (test code = 7.52 1810) POCT-GLUCOSE [id number] 11:27:00 Test Item Value Reference Range Interpretation Comments POC-GLUCOSE METER 138 mg/dL 70-110 H : TESTED A T [facility] 6720 (BEAKER) (test code = [facility], 1538) 19387: Flasher Adjuster/Techni bart ID = [id number] for SERAFIN ATWOOD POCT-GLUCOSE [id number] 07:54:29 Test Item Value Reference Range Interpretation Comments POC-GLUCOSE METER 133 mg/dL 70-110 H : TESTED A T [facility] 6720 (BEAKER) (test code = [facility], 1538) 13241: Flasher Adjuster/Techni bart ID = [id number] for SERAFIN ATWOOD HEPATIC FUNCTION [id number] 05:39:39 Test Item Value Reference Range Interpretation [...] (test code = 44 U/L 6-55 347) Flasher Adjuster ID - KAYLEEN [id number] 05:39:38 Test Item Value Reference Range Interpretation Comments PHOSPHORUS (BEAKER) (test code = 2.9 mg/dL 2.3-4.7 604) Flasher Adjuster ID - KAYLEEN LBASIC METABOLIC [id number] 05:39:37 Test Item Value Reference Range Interpretation [...] S NOT APPLICABLE FOR DIALYSIS PATIEN TS. Flasher Adjuster ID - KAYLEEN [id number] 05:39:37 Test Item Value Reference Range Interpretation Comments MAGNESIUM (BEAKER) (test code = 2.2 mg/dL 1.6-2.6 627) Flasher Adjuster ID - PIMARIELA LLACTIC ACID, [id number] 05:27:27 Test Item Value Reference Range Interpretation Comments LACTATE BLOOD 0.9 mmol/L 0.5-2.2 Specimen sligh tly ARTERIAL (2) (BEAKER) hemoly zed (test code = 2874) Flasher Adjuster ID - KAYLEEN [id number] 05:14:24 Test Item Value Reference Range Interpretation [...] for patients with mechanical heart valves.OXYGEN SATURATION, [id number] 05:07:37 Test Item Value Reference Range Interpretation Comments O2 SATURATION (MEASURED) (BEAKER) 77.5 % (test code = 1455) CBC W/PLT COUNT & AUTO [id number] 05:07:13 Test Item Value Reference Range Interpretation [...] = 2801) RAD, CHEST, 1 VIEW, NON [id number] 05:07:00while patient is intubated or has chest tubes.Reason for exam:->Status post CV SurgeryShould thisbe performed at the bedside?->Yes [facility] 1945 Sex: MFINAL REPORT RAD, CHEST, 1 VIEW, NON DEPT INDICATION: Status post CV Surgery COMPARISON: Prior day's exam FINDINGS: Portable frontal view of the chest. IMPRESSION: Support Lines: Stable. Lungs and pleura: Unchanged bibasilar airspace and pleural opacities. No pneumothorax. Heart and mediastinum: Stable contours. Additional findings: None. Signed: Halley Osullivaneplauri Verified Date /Time: 09/10/2021 05:07:16 CALCIUM, [id number] 05:03:15 Test Item Value Reference Range Interpretation Comments CALCIUM IONIZED (BEAKER) (test 1.08 mmol/L 1.12-1.27 L code = 698) PH, BLOOD (BEAKER) (test code = 7.51 1810) BLOOD GAS, [id number] 05:00:52 Test Item Value Reference Range Interpretation [...] (BEAKER) (test code = 1819) 21.0 POCT-GLUCOSE [id number] 22:18:19 Test Item Value Reference Range Interpretation Comments POC-GLUCOSE METER 157 mg/dL 70-110 H : TESTED A T [facility] 6720 (BEAKER) (test code = [place], 1538) 27615: Flasher Adjuster/Techni bart ID = [id number] for VISHAL GAINES CALCIUM, [id number] 20:12:13 Test Item Value Reference Range Interpretation Comments CALCIUM IONIZED (BEAKER) (test 1.11 mmol/L 1.12-1.27 L code = 698) PH, BLOOD (BEAKER) (test code = 7.47 1810) OXYGEN SATURATION, [id number] 20:12:01 Test Item Value Reference Range Interpretation Comments O2 SATURATION (MEASURED) (BEAKER) 78.0 % (test code = 1455) LACTIC ACID, [id number] 20:12:01 Test Item Value Reference Range Interpretation Comments LACTATE BLOOD 1.4 mmol/L 0.5-2.2 Specimen sligh tly ARTERIAL (2) (BEAKER) hemoly zed (test code = 2874) Flasher Adjuster ID - [id number] 20:09:04 Test Item Value Reference Range Interpretation Comments PHOSPHORUS (BEAKER) 2.7 mg/dL 2.3-4.7 Specimen slightly (test code = 604) hemolyzed Flasher Adjuster ID - DBBASIC METABOLIC [id number] 20:09:04 Test Item Value Reference Range Interpretation [...] S NOT APPLICABLE FOR DIALYSIS PATIEN TS. Flasher Adjuster ID - [id number] 20:09:03 Test Item Value Reference Range Interpretation Comments MAGNESIUM (BEAKER) 2.1 mg/dL 1.6-2.6 Specimen slightly (test code = 627) hemolyzed Flasher Adjuster ID - DBHEMOGLOBIN AND [id number] 19:51:19 Test Item Value Reference Range Interpretation Comments HEMOGLOBIN (BEAKER) (test code = 8.3 GM/DL 13.7-17.5 L 410) HEMATOCRIT (BEAKER) (test code = 25.6 % 40.1-51.0 L 411) Flasher Adjuster ID - [id number] SATURATION, [id number] 09:51:00 Test Item Value Reference Range Interpretation Comments O2 SATURATION (MEASURED) (BEAKER) 67.0 % (test code = 1455) RAD, CHEST, 1 VIEW, NON [id number] 06:36:00while patient is intubated or has chest tubes.Reason for exam:->Status post CV SurgeryShould thisbe performed at the bedside?->Yes [facility] 1945 Sex: MFINAL REPORT RAD, CHEST, 1 VIEW, NON DEPT INDICATION: Status post CV Surgery COMPARISON: Prior day's exam FINDINGS: Portable frontal view of the chest. IMPRESSION: Support Lines: Right chest tube. [place] tip overlies the pulmonary outflow tract. Lungs and pleura: Retrocardiac opacity representing singly or in combination airspace disease, atelectasis and/or effusion. Bibasilar interstitial thickening is unchanged. No significant pneumothorax. Heart and mediastinum: Stable contours. Stable surgical changes. Additional findings: None. Signed: Gaby Cordero Verified Date/Time: 09/09/2021 06:36:02 OXYGEN SATURATION, [id number] 05:12:23 Test Item Value Reference Range Interpretation Comments O2 SATURATION (MEASURED) (BEAKER) 98.5 % (test code = 1455) [id number] 03:20:36 Test Item Value Reference Range Interpretation Comments PHOSPHORUS (BEAKER) (test code = 2.6 mg/dL 2.3-4.7 604) Flasher Adjuster ID - MAREZNA [id number] 03:20:35 Test Item Value Reference Range Interpretation Comments MAGNESIUM (BEAKER) (test code = 2.1 mg/dL 1.6-2.6 627) Flasher Adjuster ID - MARZENA MCOMPREHENSIVE METABOLIC [id number] 03:20:34 Test Item Value Reference Range Interpretation [...] S NOT APPLICABLE FOR DIALYSIS PATIEN TS. Flasher Adjuster ID - MARZENA MPOCT-GLUCOSE [id number] 03:04:55 Test Item Value Reference Range Interpretation Comments POC-GLUCOSE METER 143 mg/dL 70-110 H : [facility] (BEAKER) (test code = [facility] [place], 1538) 46[address]: Flasher Adjuster/Techni bart ID = [id number] for Keo talamantesirmaynes Irmacarlie BLOOD GAS, [id number] 02:57:44 Test Item Value Reference Range Interpretation [...] See_Comment H [A utomated message] The system [facility] [employer] [employer] generated this result transmitted ref erence range: 3.5 - 10 .5 K/L. The refe rence range was not u sed to interpret this result as normal/abnor mal. RBC (test code = 789-8) 3.05 See_Comment L [Au tomated message] The system [employer] generated this result transmitted ref erence range: 4.63 - 6 .08 M/L. The refe rence range was not u sed to interpret this result as normal/abnor mal. MCHC (test code = 786-4) 31.7 See_Comment L [A utomated message] The system [employer] generated this result transmitted ref erence range: [...] See_Comment [Aut omated message] 777-3) The system [employer] generated this result transmitted ref erence range: 150 - 45 0 K/CU MM. The referen ce range was not u sed to interpret this result as normal/abnor mal. MPV (test code = 10.7 fL 9.4-12.4 34010-0) nRBC (test code = 413) 0 See_Comment [Aut omated message] The system [employer] generated this result transmitted ref erence range: 0 - 0 /1 00 WBC. The refere nce range was not u sed to interpret this result as normal/abnor mal. Lab Interpretation (test Abnormal code = 14645-0) [facility] (Hemogram only)2021-09-09 02:57:29 Test Item Value Reference Range Interpretation Comments WBC (test code = 6690-2) 14.5 See_Comment H [A utomated message] The system [employer] generated this result transmitted ref erence range: 3.5 - 10 .5 K/L. The refe rence range was not u sed to interpret this result as normal/abnor mal. RBC (test code = 789-8) 3.05 See_Comment L [Au tomated message] The system [employer] generated this result transmitted ref erence range: 4.63 - 6 .08 M/L. The refe rence range was not u sed to interpret this result as normal/abnor mal. MCHC (test code = 786-4) 31.7 See_Comment L [A utomated message] The system [employer] generated this result transmitted ref erence range: [...] See_Comment [Aut omated message] 777-3) The system [employer] generated this result transmitted ref erence range: 150 - 45 0 K/CU MM. The referen ce range was not u sed to interpret this result as normal/abnor mal. MPV (test code = 10.7 fL 9.4-12.4 34223-8) nRBC (test code = 413) 0 See_Comment [Aut omated message] The system [employer] generated this result transmitted ref erence range: 0 - 0 /1 00 WBC. The refere nce range was not u sed to interpret this result as normal/abnor mal. Lab Interpretation (test Abnormal code = 68658-8) [facility] (Hemogram only)2021-09-09 02:57:29 Test Item Value Reference Range Interpretation Comments WBC (test code = 6690-2) 14.5 See_Comment H [A utomated message] The system [employer] generated this result transmitted ref erence range: 3.5 - 10 .5 K/L. The refe rence range was not u sed to interpret this result as normal/abnor mal. RBC (test code = 789-8) 3.05 See_Comment L [Au tomated message] The system [employer] generated this result transmitted ref erence range: 4.63 - 6 .08 M/L. The refe rence range was not u sed to interpret this result as normal/abnor mal. MCHC (test code = 786-4) 31.7 See_Comment L [A utomated message] The system [employer] generated this result transmitted ref erence range: [...] See_Comment [Aut omated message] 777-3) The system [employer] generated this result transmitted ref erence range: 150 - 45 0 K/CU MM. The referen ce range was not u sed to interpret this result as normal/abnor mal. MPV (test code = 10.7 fL 9.4-12.4 78553-8) nRBC (test code = 413) 0 See_Comment [Aut omated message] The system [employer] generated this result transmitted ref erence range: 0 - 0 /1 00 WBC. The refere nce range was not u sed to interpret this result as normal/abnor mal. Lab Interpretation (test Abnormal code = 80828-5) [facility] (HEMOGRAM ONLY)2021-09-09 02:57:29 Test Item [...] 0-0 (BEAKER) (test code = 413) CALCIUM, [id number] 02:57:28 Test Item Value Reference Range Interpretation Comments CALCIUM IONIZED (BEAKER) (test 1.12 mmol/L 1.12-1.27 code = 698) PH, BLOOD (BEAKER) (test code = 7.46 1810) POCT-GLUCOSE [id number] 21:16:02 Test Item Value Reference Range Interpretation Comments POC-GLUCOSE METER 169 mg/dL 70-110 H : TESTED A T [facility] 6720 (BEAKER) (test code = [facility], 1538) 6[address]: Flasher Adjuster/Techni bart ID = [id number] for Am rodrigo, Walker POCT-GLUCOSE [id number] 21:12:37 Test Item Value Reference Range Interpretation Comments POC-GLUCOSE METER 140 mg/dL 70-110 H : TESTED A T [facility] 6720 (BEAKER) (test [facility], = 1538) [address]: Flasher Adjuster/Techni bart ID = [id number] for SEAN REED (contract)NICHELLE 2D Echo W/Doppler(CW/PW/Color)2021-09-08 15:37:08Ejection FractionSLEH ECHO HEARTLAB [facility] W/Doppler(CW/PW/Color)2021-09-08 15:37:08Ejection FractionSLEH ECHO HEARTLAB [facility] Echo W/Doppler(CW/PW/Color) 2021-09-08 15:37:08Ejection FractionSLEH ECHO HEARTLAB MKCKESSON CPACSCHI [id number] 15:32:47 Test Item Value Reference Range Interpretation Comments POTASSIUM (BEAKER) 4.3 meq/L 3.5-5.1 Specimen slightly (test code = 379) hemolyzed Flasher Adjuster ID - KAYLEEN [id number] 15:32:46 Test Item Value Reference Range Interpretation Comments MAGNESIUM (BEAKER) 2.0 mg/dL 1.6-2.6 Specimen slightly (test code = 627) hemolyzed Flasher Adjuster ID - KAYLEEN LCBC W/PLT COUNT & AUTO [id number] 15:19:56 Test Item Value Reference Range Interpretation [...] PERCENT (BEAKER) (test code = 2801) CALCIUM, [id number] 15:12:46 Test Item Value Reference Range Interpretation Comments CALCIUM IONIZED (BEAKER) (test 1.11 mmol/L 1.12-1.27 L code = 698) PH, BLOOD (BEAKER) (test code = 7.48 1810) POCT-GLUCOSE [id number] 14:49:24 Test Item Value Reference Range Interpretation Comments POC-GLUCOSE METER 102 mg/dL 70-110 : TESTED A T [facility] 6720 (BEAKER) (test code [facility], = 1538) 17195: Flasher Adjuster/Techni bart ID = [id number] for SEAN DEREK (contract)NICHELLE POCT-GLUCOSE [id number] 10:32:59 Test Item Value Reference Range Interpretation Comments POC-GLUCOSE METER 104 mg/dL 70-110 : TESTED A T [facility] 6720 (BEAKER) (test code [facility], = 1538) 59063: Flasher Adjuster/Techni bart ID = [id number] for SEAN GERALDINEA (contract), NICHELLE OSLASAMANTHA HEMOGLOBIN AND [id number] 10:32:38 Test Item Value Reference Range Interpretation Comments HEMOGLOBIN (BEAKER) (test code = 7.7 GM/DL 13.7-17.5 L 410) HEMATOCRIT (BEAKER) (test code = 25.3 % 40.1-51.0 L 411) Flasher Adjuster ID - [id number]-GLUCOSE [id number] 09:26:31 Test Item Value Reference Range Interpretation Comments POC-GLUCOSE METER 96 mg/dL 70-110 : TESTED A T [facility] 6720 (BEAKER) (test code = DOMINIQUE [facility], 1538) 24701: Flasher Adjuster/Techni bart ID = [id number] for SEAN REED (contract), NICHELLE OSLASAMANTHA LACTIC ACID, [id number] 09:18:52 Test Item Value Reference Range Interpretation Comments LACTATE BLOOD ARTERIAL (2) 1.7 mmol/L 0.5-2.2 (BEAKER) (test code = 2874) Flasher Adjuster ID - DBOXYGEN SATURATION, [id number] 09:17:35 Test Item Value Reference Range Interpretation Comments O2 SATURATION (MEASURED) (BEAKER) 60.3 % (test code = 1455) POCT-GLUCOSE [id number] 09:09:11 Test Item Value Reference Range Interpretation Comments POC-GLUCOSE METER 101 mg/dL 70-110 : TESTED A Ivanna [facility] 6720 (BEAKER) (test code MARILYN [facility], = 1538) 766[address]: Flasher Adjuster/Techni bart ID = [id number] for SEAN REED (contract), NICHELLE RUPINDER BLOOD GAS, [id number] 09:08:49 Test Item Value Reference Range Interpretation [...] = No growth in 5 days 6463-4) [facility] Culture - Routine (Left Venipuncture)2021-09-08 08:00:53 Test Item Value Reference Range Interpretation Comments Result (test code = No growth in 5 days 6463-4) [facility] Culture - Routine (Left Venipuncture)2021-09-08 08:00:53 Test Item Value Reference Range Interpretation Comments Result (test code = No growth in 5 days 6463-4) [facility] [id number] 08:00:53 Test Item Value Reference Range Interpretation Comments CULTURE (BEAKER) (test No growth in 5 days code = 1095) BLOOD [id number] 08:00:52 Test Item Value Reference Range Interpretation Comments CULTURE (BEAKER) (test No growth in 5 days code = 1095) [id number] 07:57:26 Test Item Value Reference Range Interpretation Comments Scan Result (test code = See scanned report [id number]) EMERSON (test code = EMERSON) See scanned report [facility] 07:57:26 Test Item Value Reference Range Interpretation Comments Scan Result (test code = See scanned report [id number]) EMERSON (test code = EMERSON) See scanned report [facility] 07:57:26 Test Item Value Reference Range Interpretation Comments Scan Result (test code = See scanned report [id number]) EMERSON (test code = EMERSON) See scanned report [facility]MIS[facility] [id number] 07:57:26 Test Item Value Reference Range Interpretation Comments SCAN RESULT (test code = See scanned report [id number]) See scanned reportLACTIC ACID, [id number] 06:32:27 Test Item Value Reference Range Interpretation Comments LACTATE BLOOD ARTERIAL (2) 3.0 mmol/L 0.5-2.2 H (BEAKER) (test code = 2874) Flasher Adjuster ID - PIAYA LPOC ACTIVATED CLOTTING [id number] 06:31:19 Test Item Value Reference Range Interpretation Comments Activated Clotting Time 142 sec : 74 -137 seconds, (test code = 441) Baseline: TESTED AT [facility] 67[address] [facility] [place], [address]: Flasher Adjuster/Techni bart ID = [id number] for Angela Paniagua [facility] ACTIVATED CLOTTING [id number] 06:31:19 Test Item Value Reference Range Interpretation Comments Activated Clotting Time 142 sec : 74 -137 seconds, (test code = 3184-9) Baselin e: TESTED AT [address], [address]: Flasher Adjuster/Techni bart ID = [id number] for Sa enz, Angela RUFFIN [facility] ACTIVATED CLOTTING [id number] 06:31:19 Test Item Value Reference Range Interpretation Comments Activated Clotting Time 142 sec : 74 -137 seconds, (test code = 3184-9) Baselin e: TESTED AT [address], [address]70 30: Flasher Adjuster/Techni bart ID = [id number] for Sa enz, Angela RUFFIN [id number]-[id number] 06:31:19 Test Item Value Reference Range Interpretation Comments ACTIVATED CLOTTING TIME 142 sec : 74 -137 seconds, (BEAKER) (test code = Baseli ne: TESTED AT 441) [address], [address]70 30: Flasher Adjuster/Techni bart ID = [id number] for Sa enz, Angela [id number] 06:31:17 Test Item Value Reference Range Interpretation Comments ACTIVATED CLOTTING TIME 785 sec : 74 -137 seconds, (BEAKER) (test code = Baseli ne: TESTED AT 441) [address], [address]70 30: Flasher Adjuster/Techni bart ID = [id number] for Sa enz, Angela [id number] 06:31:17 Test Item Value Reference Range Interpretation Comments ACTIVATED CLOTTING TIME 964 sec : 74 -137 seconds, (BEAKER) (test code = Baseli ne: TESTED AT 441) [address], [address]70 30: Flasher Adjuster/Techni bart ID = [id number] for Sa enz, Angela [id number] 06:31:16 Test Item Value Reference Range Interpretation Comments ACTIVATED CLOTTING TIME > sec : 74 -137 seconds, (BEAKER) (test code = Baseli ne: TESTED AT 441) [address], [facility] 30: Flasher Adjuster/Techni bart ID = [id number] for Sa enz, Angela [id number] 06:31:15 Test Item Value Reference Range Interpretation Comments ACTIVATED CLOTTING TIME > sec : 74 -137 seconds, (BEAKER) (test code = Baseli ne: TESTED AT 441) [address], [address]70 30: Flasher Adjuster/Techni bart ID = [id number] for Angeal Paniagua [id number] 06:31:14 Test Item Value Reference Range Interpretation Comments ACTIVATED CLOTTING TIME 708 sec : 74 -137 seconds, (BEAKER) (test code = Baseli ne: TESTED AT 441) [address], 770 30: Flasher Adjuster/Techni bart ID = [id number] for Richie Paniaguaen [id number] 06:31:13 Test Item Value Reference Range Interpretation Comments ACTIVATED CLOTTING TIME 154 sec : 74 -137 seconds, (BEAKER) (test code = Josei ne: TESTED AT 441) [address], 770 30: Flasher Adjuster/Techni bart ID = [id number] for Angela Paniagua POCT-GLUCOSE [id number] 06:26:19 Test Item Value Reference Range Interpretation Comments POC-GLUCOSE METER 117 mg/dL 70-110 H : TESTED A T [place] [address] (BEAKER) (test code = [facility], 1538) 10352: Flasher Adjuster/Techni bart ID = [id number] for Jane Payne HGB/HCT (H&H)-Stat [id number] 06:21:12 Test Item Value Reference Range Interpretation Comments Hemoglobin (test code = 8.3 See_Comment L [Au tomated message] 786-4) The system [employer] generated this result transmitted ref erence range: 13.0 - 1 6.8 GM/DL. The refe rence range was not u sed to interpret this result as normal/abnor mal. Hematocrit (test code = 24.0 % 40.0-50.0 L 4544-3) Lab Interpretation (test Abnormal code = 10505-5) [facility]Gl[facility] [id number] 06:21:12 Test Item Value Reference Range Interpretation Comments Glucose (test code = 2345-7) 123 mg/dL 70-110 H Lab Interpretation (test code = Abnormal 69216-2) [facility] HospitalH[facility] (H&H)-Stat [id number] 06:21:12 Test Item Value Reference Range Interpretation Comments Hemoglobin (test code = 8.3 See_Comment L [Au tomated message] 786-4) The system [employer] generated this result transmitted ref erence range: 13.0 - 1 6.8 GM/DL. The refe rence range was not u sed to interpret this result as normal/abnor mal. Hematocrit (test code = 24.0 % 40.0-50.0 L 4544-3) Lab Interpretation (test Abnormal code = 24516-2) [facility] [id number] 06:21:12 Test Item Value Reference Range Interpretation Comments Glucose (test code = 2345-7) 123 mg/dL 70-110 H Lab Interpretation (test code = Abnormal 77757-1) [facility] ([facility]&H[facility]Stat [id number] 06:21:12 Test Item Value Reference Range Interpretation Comments Hemoglobin (test code = 8.3 See_Comment L [Au tomated message] 786-4) The system [employer] generated this result transmitted ref erence range: 13.0 - 1 6.8 GM/DL. The refe rence range was not u sed to interpret this result as normal/abnor mal. Hematocrit (test code = 24.0 % 40.0-50.0 L 4544-3) Lab Interpretation (test Abnormal code = 45650-2) [facility] [id number] 06:21:12 Test Item Value Reference Range Interpretation Comments Glucose (test code = 2345-7) 123 mg/dL 70-110 H Lab Interpretation (test code = Abnormal 73154-8) [facility] HospitalGLUCOSE-STAT [id number] 06:21:12 Test Item Value Reference Range Interpretation Comments GLUCOSE RANDOM (BEAKER) (test code 123 mg/dL 70-110 H = 652) HGB/HCT (H&H) - STAT [id number] 06:21:12 Test Item Value Reference Range Interpretation Comments HEMOGLOBIN (BEAKER) (test code = 8.3 GM/DL 13.0-16.8 L 410) HEMATOCRIT (BEAKER) (test code = 24.0 % 40.0-50.0 L 411) BLOOD GAS, [id number] 06:21:11 Test Item Value Reference Range Interpretation [...] (BEAKER) (test code = 1819) 40.0 Potassium-Stat [id number] 06:19:05 Test Item Value Reference Range Interpretation Comments Potassium (test code = 2823-3) 4.1 meq/L 3.6-5.5 Lab Interpretation (test code = Normal 63028-8) [facility] HospitalPotassium-Stat [id number] 06:19:05 Test Item Value Reference Range Interpretation Comments Potassium (test code = 2823-3) 4.1 meq/L 3.6-5.5 Lab Interpretation (test code = Normal 10441-0) [facility]assium[facility]Stat [id number] 06:19:05 Test Item Value Reference Range Interpretation Comments Potassium (test code = 2823-3) 4.1 meq/L 3.6-5.5 Lab Interpretation (test code = Normal 42533-3) [facility] HospitalPOTASSIUM-STAT [id number] 06:19:05 Test Item Value Reference Range Interpretation Comments POTASSIUM (BEAKER) (test code = 4.1 meq/L 3.6-5.5 379) Sodium Na-Stat [id number] 06:19:04 Test Item Value Reference Range Interpretation Comments Sodium (test code = 2951-2) 140 meq/L 136-145 Lab Interpretation (test code = Normal 88538-0) [facility] [id number] 06:19:04 Test Item Value Reference Range Interpretation Comments Sodium (test code = 2951-2) 140 meq/L 136-145 Lab Interpretation (test code = Normal 92641-8) [facility]Stat [id number] 06:19:04 Test Item Value Reference Range Interpretation Comments Sodium (test code = 2951-2) 140 meq/L 136-145 Lab Interpretation (test code = Normal 93801-3) [facility] [id number] 06:19:04 Test Item Value Reference Range Interpretation Comments SODIUM (BEAKER) (test code = 381) 140 meq/L 136-145 POCT-GLUCOSE [id number] 06:03:00 Test Item Value Reference Range Interpretation Comments POC-GLUCOSE METER 117 mg/dL 70-110 H : TESTED A T [facility] 6720 (BEAKER) (test code = [facility], 1538) 79609: Flasher Adjuster/Techni bart ID = [id number] for La nate, Jane POCT-GLUCOSE [id number] 04:27:30 Test Item Value Reference Range Interpretation Comments POC-GLUCOSE METER 131 mg/dL 70-110 H : TESTED A T [facility] 6720 (BEAKER) (test code = [facility], 1538) 44853: Flasher Adjuster/Techni bart ID = [id number] for La nate, Jane HGB/HCT (H&H) - STAT [id number] 04:22:31 Test Item Value Reference Range Interpretation Comments HEMOGLOBIN (BEAKER) (test code = 8.5 GM/DL 13.0-16.8 L 410) HEMATOCRIT (BEAKER) (test code = 25.0 % 40.0-50.0 L 411) BLOOD GAS, [id number] 04:22:30 Test Item Value Reference Range Interpretation [...] (BEAKER) (test code = 1819) 40.0 GLUCOSE-STAT [id number] 04:22:30 Test Item Value Reference Range Interpretation Comments GLUCOSE RANDOM (BEAKER) (test code 145 mg/dL 70-110 H = 652) OXYGEN SATURATION, [id number] 04:22:06 Test Item Value Reference Range Interpretation Comments O2 SATURATION (MEASURED) (BEAKER) 70.0 % (test code = 1455) SODIUM NA-STAT [id number] 04:21:07 Test Item Value Reference Range Interpretation Comments SODIUM (BEAKER) (test code = 381) 138 meq/L 136-145 POTASSIUM-STAT [id number] 04:21:07 Test Item Value Reference Range Interpretation Comments POTASSIUM (BEAKER) (test code = 4.0 meq/L 3.6-5.5 379) RAD, CHEST, 1 VIEW, NON [id number] 04:06:00while patient is intubated or has chest tubes.Reason for exam:->Status post CV SurgeryShould thisbe performed at the bedside?->Yes [facility] BARRYGAILNUZHATSILVERSanto BACH : 1945 Sex: MFINAL REPORT RAD, CHEST, 1 VIEW, NON DEPT INDICATION: Status post CV Surgery COMPARISON: Prior day's exam FINDINGS: Portable frontal view of the chest. IMPRESSION: Support Lines: Slight repositioning of the right IJ [place] catheter tip overlying the main pulmonary artery. Lungs and pleura: Unchanged airspace and pleural opacities. No pneumothorax.Heart and mediastinum: Stable co ntours. Stable surgical changes.Additional findings: None. Signed: Rm Nassar Verified Date/Time: 09/08/2021 04:06:10 LACTIC ACID, ARTERIAL 2021-09-08 03:28:09 Test Item Value Reference Range Interpretation Comments LACTATE BLOOD ARTERIAL (2) 4.4 mmol/L 0.5-2.2 HH (BEAKER) (test code = 2874) Flasher Adjuster ID - DBPOCT-GLUCOSE [id number] 03:20:20 Test Item Value Reference Range Interpretation Comments POC-GLUCOSE METER 127 mg/dL 70-110 H : TESTED A T [facility] 6720 (BEAKER) (test code = [facility] Srikanth [facility], 1538) 485[address]: Flasher Adjuster/Techni bart ID = [id number] for Jane Payne CBC W/PLT COUNT & AUTO [id number] 03:14:20 Test Item Value Reference Range Interpretation [...] 0-1 PERCENT (BEAKER) (test code = 2801) [id number] 03:02:27 Test Item Value Reference Range Interpretation Comments PHOSPHORUS (BEAKER) (test code = 2.5 mg/dL 2.3-4.7 604) Flasher Adjuster ID - [id number] 03:02:26 Test Item Value Reference Range Interpretation Comments MAGNESIUM (BEAKER) (test code = 2.3 mg/dL 1.6-2.6 627) Flasher Adjuster ID - DBCOMPREHENSIVE METABOLIC [id number] 03:02:25 Test Item Value Reference Range Interpretation [...] S NOT APPLICABLE FOR DIALYSIS PATIEN TS. Flasher Adjuster ID - DBCALCIUM, [id number] 02:42:47 Test Item Value Reference Range Interpretation Comments CALCIUM IONIZED (BEAKER) (test 1.09 mmol/L 1.12-1.27 L code = 698) PH, BLOOD (BEAKER) (test code = 7.51 1810) GLUCOSE-STAT [id number] 02:42:45 Test Item Value Reference Range Interpretation Comments GLUCOSE RANDOM (BEAKER) (test code 162 mg/dL 70-110 H = 652) HGB/HCT (H&H) - STAT [id number] 02:42:45 Test Item Value Reference Range Interpretation Comments HEMOGLOBIN (BEAKER) (test code = 8.3 GM/DL 13.0-16.8 L 410) HEMATOCRIT (BEAKER) (test code = 24.0 % 40.0-50.0 L 411) BLOOD GAS, [id number] 02:42:44 Test Item Value Reference Range Interpretation [...] (test code = 1819) 40.0 SODIUM NA-STAT [id number] 02:39:19 Test Item Value Reference Range Interpretation Comments SODIUM (BEAKER) (test code = 381) 138 meq/L 136-145 POTASSIUM-STAT [id number] 02:39:19 Test Item Value Reference Range Interpretation Comments POTASSIUM (BEAKER) (test code = 3.8 meq/L 3.6-5.5 379) POCT-GLUCOSE [id number] 02:22:45 Test Item Value Reference Range Interpretation Comments POC-GLUCOSE METER 148 mg/dL 70-110 H : TESTED A [place] [facility] 6720 (BEAKER) (test code = [facility], 1538) [address]: Flasher Adjuster/Techni bart ID = [id number] for La nate, Jane OXYGEN SATURATION, [id number] 01:24:13 Test Item Value Reference Range Interpretation Comments O2 SATURATION (MEASURED) (BEAKER) 71.6 % (test code = 1455) POCT-GLUCOSE [id number] 01:14:53 Test Item Value Reference Range Interpretation Comments POC-GLUCOSE METER 159 mg/dL 70-110 H : TESTED A T [facility] 6720 (BEAKER) (test code = [facility] [employer] [facility], 1538) 60171: Flasher Adjuster/Techni bart ID = [id number] for La nate, Jane POCT-GLUCOSE [id number] 00:12:10 Test Item Value Reference Range Interpretation Comments POC-GLUCOSE METER 170 mg/dL 70-110 H : TESTED A T [facility] 6720 (BEAKER) (test code = DOMINI[facility] [place], 1538) [address]: Flasher Adjuster/Techni bart ID = [id number] for Jane Payne HGB/HCT (H&H) - STAT [id number] 00:01:07 Test Item Value Reference Range Interpretation Comments HEMOGLOBIN (BEAKER) (test code = 8.6 GM/DL 13.0-16.8 L 410) HEMATOCRIT (BEAKER) (test code = 25.0 % 40.0-50.0 L 411) BLOOD GAS, [id number] 00:01:06 Test Item Value Reference Range Interpretation [...] (BEAKER) (test code = 1819) 40.0 GLUCOSE-STAT [id number] 00:01:06 Test Item Value Reference Range Interpretation Comments GLUCOSE RANDOM (BEAKER) (test code 185 mg/dL 70-110 H = 652) POTASSIUM-STAT [id number] 00:00:02 Test Item Value Reference Range Interpretation Comments POTASSIUM (BEAKER) (test code = 4.0 meq/L 3.6-5.5 379) SODIUM NA-STAT [id number] 00:00:01 Test Item Value Reference Range Interpretation Comments SODIUM (BEAKER) (test code = 381) 138 meq/L 136-145 POCT-GLUCOSE [id number] 23:16:14 Test Item Value Reference Range Interpretation Comments POC-GLUCOSE METER 169 mg/dL 70-110 H : TESTED A T [facility] 6720 (BEAKER) (test code = [facility] Srikanth [facility], 1538) 05331: Flasher Adjuster/Techni bart ID = [id number] for Cathie thomasa Jane POCT-GLUCOSE [id number] 22:48:00 Test Item Value Reference Range Interpretation Comments POC-GLUCOSE METER 186 mg/dL 70-110 H : TESTED A T [facility] 6720 (BEAKER) (test code = [facility] Srikanth [facility], 1538) 70377: Flasher Adjuster/Techni bart ID = [id number] for Cathie thomasa Jane LACTIC ACID, [id number] 22:32:03 Test Item Value Reference Range Interpretation Comments LACTATE BLOOD ARTERIAL (2) 7.7 mmol/L 0.5-2.2 HH (BEAKER) (test code = 2874) Flasher Adjuster ID - DBSpecimen slightly [id number] 22:20:51 Test Item Value Reference Range Interpretation Comments PARTIAL THROMBOPLASTIN TIME 50.9 seconds 22.5-36.0 H (BEAKER) (test code = 760) POCT-GLUCOSE [id number] 22:10:53 Test Item Value Reference Range Interpretation Comments POC-GLUCOSE METER 203 mg/dL 70-110 H : TESTED A T [facility] 6720 (BEAKER) (test code = [facility] Srikanth [facility], 1538) 00608: Flasher Adjuster/Techni bart ID = [id number] for Cathie thomasaJane HGB/HCT (H&H) - STAT [id number] 22:10:05 Test Item Value Reference Range Interpretation Comments HEMOGLOBIN (BEAKER) (test code = 8.4 GM/DL 13.0-16.8 L 410) HEMATOCRIT (BEAKER) (test code = 25.0 % 40.0-50.0 L 411) GLUCOSE-STAT [id number] 22:10:04 Test Item Value Reference Range Interpretation Comments GLUCOSE RANDOM (BEAKER) (test code 203 mg/dL 70-110 H = 652) BLOOD GAS, [id number] 22:10:03 Test Item Value Reference Range Interpretation [...] (test code = 1819) 40.0 SODIUM NA-STAT [id number] 22:09:47 Test Item Value Reference Range Interpretation Comments SODIUM (BEAKER) (test code = 381) 140 meq/L 136-145 POTASSIUM-STAT [id number] 22:09:47 Test Item Value Reference Range Interpretation Comments POTASSIUM (BEAKER) (test code = 3.8 meq/L 3.6-5.5 379) BASIC METABOLIC [id number] 21:03:11 Test Item Value Reference Range Interpretation [...] S NOT APPLICABLE FOR DIALYSIS PATIEN TS. Flasher Adjuster ID - MARZENA MHGB/HCT (H&H) - STAT [id number] 20:56:34 Test Item Value Reference Range Interpretation Comments HEMOGLOBIN (BEAKER) (test code = 9.2 GM/DL 13.0-16.8 L 410) HEMATOCRIT (BEAKER) (test code = 27.0 % 40.0-50.0 L 411) GLUCOSE-STAT [id number] 20:56:33 Test Item Value Reference Range Interpretation Comments GLUCOSE RANDOM (BEAKER) (test code 216 mg/dL 70-110 H = 652) BLOOD GAS, [id number] 20:56:32 Test Item Value Reference Range Interpretation [...] (BEAKER) (test code = 1819) 40.0 POTASSIUM-STAT [id number] 20:55:37 Test Item Value Reference Range Interpretation Comments POTASSIUM (BEAKER) (test code = 3.9 meq/L 3.6-5.5 379) SODIUM NA-STAT [id number] 20:55:36 Test Item Value Reference Range Interpretation Comments SODIUM (BEAKER) (test code = 381) 138 meq/L 136-145 LACTIC ACID, [id number] 19:32:31 Test Item Value Reference Range Interpretation Comments LACTATE BLOOD ARTERIAL (2) 9.1 mmol/L 0.5-2.2 HH (BEAKER) (test code = 2874) Flasher Adjuster ID - MARZENA MCBC (HEMOGRAM ONLY)2021-09-07 19:15:57 [...] (BEAKER) (test code = 413) BLOOD GAS, [id number] 19:14:26 Test Item Value Reference Range Interpretation [...] (test code = 1819) 60.0 OXYGEN SATURATION, [id number] 19:14:15 Test Item Value Reference Range Interpretation Comments O2 SATURATION (MEASURED) (BEAKER) 72.3 % (test code = 1455) POCT-GLUCOSE [id number] 18:29:54 Test Item Value Reference Range Interpretation Comments POC-GLUCOSE METER 170 mg/dL 70-110 H : TESTED A T [facility] 6720 (BEAKER) (test code = [place], 1538) [address]: 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 need to see distance of aorta from chest wall and calcification of [facility] 1945 Sex: MAddendum [...] MDReport Verified Date/Time: 09/07/2021 17:57:58 Reading Location: [facility] Radiology Reading RoomAddendum EndsFINAL REPORT CTA Aorta [...] aorta. There is no acute aortic pathology. Ditching Machine Operator dimensions of the thoracic aorta are as [...] Humphreys MDReport Verified Date/Time: 0:03:27 CT, CTA [id number] 17:57:00Unlisted Reason for Exam - Click Yes and Enter Reason Below->YesUnlisted Reason for Exam->Evaluate descending aorta for calcification down to femoral vessels, prior to cannulation of femoral artery and vein for cardiac surgery. [facility] : 1945 Sex: MAddendum [...] MDReport Verified Date/Time: 09/07/2021 17:57:58 Reading Location: [facility] [place] Radiology Reading RoomAddendum EndsFINAL REPORT CTA Aorta [...] dynamic passage of intravenous contrast material. Multi-planar 4-Evlddpt-ubdjgongi reconstruction was performed using an independent workstation [...] aorta. There is no acute aortic pathology. Ditching Machine Operator dimensions of the thoracic aorta are as [...] MDReport Verified Date/Time: 09/06/2021 10:03:27 LACTIC ACID, [id number] 17:36:22 Test Item Value Reference Range Interpretation Comments LACTATE BLOOD 8.2 mmol/L 0.5-2.2 HH Specimen sligh tly ARTERIAL (2) (BEAKER) hemoly zed (test code = 2874) Flasher Adjuster ID - MARZENA MHGB/HCT (H&H) - STAT [id number] 17:15:52 Test Item Value Reference Range Interpretation Comments HEMOGLOBIN (BEAKER) (test code = 8.7 GM/DL 13.0-16.8 L 410) HEMATOCRIT (BEAKER) (test code = 26.0 % 40.0-50.0 L 411) GLUCOSE-STAT [id number] 17:15:51 Test Item Value Reference Range Interpretation Comments GLUCOSE RANDOM (BEAKER) (test code 179 mg/dL 70-110 H = 652) BLOOD GAS, [id number] 17:15:50 Test Item Value Reference Range Interpretation [...] (BEAKER) (test code = 1819) 40.0 POTASSIUM-STAT [id number] 17:15:06 Test Item Value Reference Range Interpretation Comments POTASSIUM (BEAKER) (test code = 3.6 meq/L 3.6-5.5 379) SODIUM NA-STAT [id number] 17:15:05 Test Item Value Reference Range Interpretation Comments SODIUM (BEAKER) (test code = 381) 138 meq/L 136-145 LACTIC ACID, [id number] 15:47:03 Test Item Value Reference Range Interpretation Comments LACTATE BLOOD 5.7 mmol/L 0.5-2.2 HH Specimen moder ately ARTERIAL (2) (BEAKER) hemoly zed (test code = 2874) Flasher Adjuster ID - MARZENA MBASIC METABOLIC [id number] 15:45:08 Test Item Value Reference Range Interpretation [...] S NOT APPLICABLE FOR DIALYSIS PATIEN TS. Flasher Adjuster ID - MARZENA [id number] 15:45:07 Test Item Value Reference Range Interpretation Comments PHOSPHORUS (BEAKER) 3.1 mg/dL 2.3-4.7 Specimen slightly (test code = 604) hemolyzed Flasher Adjuster ID - MARZENA [id number] 15:45:06 Test Item Value Reference Range Interpretation Comments MAGNESIUM (BEAKER) 2.9 mg/dL 1.6-2.6 H Specimen slightly (test code = 627) hemolyzed Flasher Adjuster ID - MARZENA MCBC W/PLT COUNT & AUTO [id number] 15:40:58 Test Item Value Reference Range Interpretation [...] 0-1 PERCENT (BEAKER) (test code = 2801) [id number] 15:37:40 Test Item Value Reference Range Interpretation [...] is 2.5-3.5 for patients with mechanical heart valves.[id number] 15:37:05 Test Item Value Reference Range Interpretation Comments Fibrinogen (test code = 3255-7) 466 mg/dl 225-434 H Lab Interpretation (test code = Abnormal 31214-0) [facility] 15:37:05 Test Item Value Reference Range Interpretation Comments Fibrinogen (test code = 3255-7) 466 mg/dl 225-434 H Lab Interpretation (test code = Abnormal 02084-3) [facility] 15:37:05 Test Item Value Reference Range Interpretation Comments Fibrinogen (test code = 3255-7) 466 mg/dl 225-434 H Lab Interpretation (test code = Abnormal 18526-8) [facility] 15:37:05 Test Item Value Reference Range Interpretation Comments FIBRINOGEN LEVEL (BEAKER) (test 466 mg/dl 225-434 H code = 658) PROTHROMBIN TIME/[id number] 15:36:48 Test Item Value Reference Range Interpretation [...] for patients with mechanical heart valves.BLOOD GAS, [id number] 15:31:17 Test Item Value Reference Range Interpretation [...] (test code = 1819) 60.0 OXYGEN SATURATION, [id number] 15:30:38 Test Item Value Reference Range Interpretation Comments O2 SATURATION (MEASURED) (BEAKER) 66.2 % (test code = 1455) RAD, CHEST, 1 VIEW, NON [id number] 15:30:00Reason for exam:->Status post CV Surgery post op day 0Should this be performed at the bedside?->[facility] 1945 Sex: MFINAL REPORT Chest dated 09/07/2021 COMPARISON: September 05, 2021 Clinical Information: Status post CV Surgery post op day 0 Comment: Heart is enlarged. Pulmonary vasculature is indistinct. Airspace disease is seen bilaterally suggestive of pulmonary edema. Endotracheal tube, nasogastric tube, [place] catheter, and right chest tube are present. No pneumothorax is seen. Signed: Halley Khan Verified Date/Time: 09/07/2021 15:30:25 [facility] [id number] 14:47:00 Test Item Value Reference Range Interpretation Comments CROSSMATCH (test code = COMPATIBLE 2264) Unit ABO (test code = A Pos 3192690) UNIT NUMBER (test code = [id number] 934-0) Status (test code = RETURNED FROM ISSUE 4932072) Blood Bank Product (test RED BLOOD CELLS code = 2263) PRODUCT CODE (test code = [id number] 933-2) [facility] [id number] 14:47:00 Test Item Value Reference Range Interpretation Comments Unit ABO (test code = A Pos 9292455) UNIT NUMBER (test code = [id number] 934-0) Status (test code = RETURNED FROM ISSUE 4406260) Blood Bank Product (test FFP code = 2263) PRODUCT CODE (test code = [id number] 933-2) [facility] [id number] 14:47:00 Test Item Value Reference Range Interpretation Comments CROSSMATCH (test code = COMPATIBLE 2264) Unit ABO (test code = A Pos 5019903) UNIT NUMBER (test code = [id number] 934-0) Status (test code = RETURNED FROM ISSUE 4739188) Blood Bank Product (test RED BLOOD CELLS code = 2263) PRODUCT CODE (test code = [id number] 933-2) [facility] [id number] 14:47:00 Test Item Value Reference Range Interpretation Comments Unit ABO (test code = A Pos 2462343) UNIT NUMBER (test code = [id number] 934-0) Status (test code = RETURNED FROM ISSUE 15101028) Blood Bank Product (test FFP code = 2263) PRODUCT CODE (test code = M7919H50 933-2) [facility] [id number] 14:47:00 Test Item Value Reference Range Interpretation Comments CROSSMATCH (test code = COMPATIBLE 2264) Unit ABO (test code = A Pos 7498386) UNIT NUMBER (test code = [id number] 934-0) Status (test code = RETURNED FROM ISSUE 15101028) Blood Bank Product (test RED BLOOD CELLS code = 2263) PRODUCT CODE (test code = K4377F78 933-2) [facility] [id number] 14:47:00 Test Item Value Reference Range Interpretation Comments Unit ABO (test code = A Pos 8869531) UNIT NUMBER (test code = [id number] 934-0) Status (test code = RETURNED FROM ISSUE 15101028) Blood Bank Product (test FFP code = 2263) PRODUCT CODE (test code = E2192R32 933-2) [facility] 14:14:33 Test Item Value Reference Range Interpretation Comments PHOSPHORUS (BEAKER) (test code = 3.5 mg/dL 2.3-4.7 604) Flasher Adjuster ID - BSCBC W/PLT COUNT & AUTO [id number] 13:56:03 Test Item Value Reference Range Interpretation [...] 0-1 PERCENT (BEAKER) (test code = 2801) [id number] 13:40:15 Test Item Value Reference Range Interpretation Comments PARTIAL THROMBOPLASTIN TIME 40.7 seconds 22.5-36.0 H (BEAKER) (test code = 760) [id number] 13:40:14 Test Item Value Reference Range Interpretation Comments FIBRINOGEN LEVEL (BEAKER) (test 374 mg/dl 225-434 code = 658) PROTHROMBIN TIME/[id number] 13:40:08 Test Item Value Reference Range Interpretation Comments PROTIME (BEAKER) 21.5 seconds 11.9-14.2 H (test code = 759) INR (BEAKER) (test 1.89 See_Comment [Automat ed message] code = 370) The system Autosprite generated this result transmitted ref erence range: <=5.90. The reference range was not used to int erpret this result as normal/abnormal . RECOMMENDED COUMADIN/WARFARIN INR THERAPY RANGESSTANDARD DOSE: 2.0 - 3.0 Includes: PROPHYLAXIS for venous thrombosis, systemic embolization; TREATMENT for venous thrombosis and/or pulmonary embolus.HIGH RISK: Target INR is 2.5-3.5 for patients with mechanical heart valves.CALCIUM, [id number] 13:38:49 Test Item Value Reference Range Interpretation Comments CALCIUM IONIZED (BEAKER) (test 1.13 mmol/L 1.12-1.27 code = 698) PH, BLOOD (BEAKER) (test code = 7.35 1810) GLUCOSE-STAT [id number] 13:37:55 Test Item Value Reference Range Interpretation Comments GLUCOSE RANDOM (BEAKER) (test code 187 mg/dL 70-110 H = 652) HGB/HCT (H&H) - STAT [id number] 13:37:55 Test Item Value Reference Range Interpretation Comments HEMOGLOBIN (BEAKER) (test code = 8.0 GM/DL 13.0-16.8 L 410) HEMATOCRIT (BEAKER) (test code = 24.0 % 40.0-50.0 L 411) BLOOD GAS, [id number] 13:37:54 Test Item Value Reference Range Interpretation [...] (test code = 1819) 94.0 SODIUM NA-STAT [id number] 13:37:41 Test Item Value Reference Range Interpretation Comments SODIUM (BEAKER) (test code = 381) 135 meq/L 136-145 L POTASSIUM-STAT [id number] 13:37:41 Test Item Value Reference Range Interpretation Comments POTASSIUM (BEAKER) (test code = 3.6 meq/L 3.6-5.5 379) Platelet [id number] 13:30:37 Test Item Value Reference Range Interpretation Comments Platelets (test code 136 See_Comment L [Autom ated = 777-3) message] The system which generated this result transmit dante reference range : 150 - 450 K/CU MM. The reference range was not u sed to interpret th is result as normal/abnormal . EMERSON (test code = EMERSON) Flasher Adjuster ID - [id number] Lab Interpretation Abnormal (test code = 63873-9) [facility] [id number] 13:30:37 Test Item Value Reference Range Interpretation Comments Platelets (test code 136 See_Comment L [Autom ated = 777-3) message] The system which generated this result transmit dante reference range : 150 - 450 K/CU MM. The reference range was not u sed to interpret th is result as normal/abnormal . EMERSON (test code = EMERSON) Flasher Adjuster ID - [id number] Lab Interpretation Abnormal (test code = 21216-1) [facility] [id number] 13:30:37 Test Item Value Reference Range Interpretation Comments Platelets (test code 136 See_Comment L [Autom ated = 777-3) message] The system which generated this result transmit dante reference range : 150 - 450 K/CU MM. The reference range was not u sed to interpret th is result as normal/abnormal . EMERSON (test code = EMERSON) Flasher Adjuster ID - [id number] Lab Interpretation Abnormal (test code = 84950-0) [facility] [id number] 13:30:37 Test Item Value Reference Range Interpretation Comments PLATELET COUNT (BEAKER) (test 136 K/CU MM 150-450 L code = 756) Flasher Adjuster ID - [id number], [id number] 13:24:01 Test Item Value Reference Range Interpretation Comments CALCIUM IONIZED (BEAKER) (test 1.23 mmol/L 1.12-1.27 code = 698) PH, BLOOD (BEAKER) (test code = 7.35 1810) HGB/HCT (H&H) - STAT [id number] 13:23:58 Test Item Value Reference Range Interpretation Comments HEMOGLOBIN (BEAKER) (test code = 8.2 GM/DL 13.0-16.8 L 410) HEMATOCRIT (BEAKER) (test code = 24.0 % 40.0-50.0 L 411) GLUCOSE-STAT [id number] 13:23:57 Test Item Value Reference Range Interpretation Comments GLUCOSE RANDOM (BEAKER) (test code 212 mg/dL 70-110 H = 652) BLOOD GAS, [id number] 13:23:56 Test Item Value Reference Range Interpretation [...] (BEAKER) (test code = 1819) 100.0 POTASSIUM-STAT [id number] 13:23:26 Test Item Value Reference Range Interpretation Comments POTASSIUM (BEAKER) (test code = 3.9 meq/L 3.6-5.5 379) SODIUM NA-STAT [id number] 13:23:25 Test Item Value Reference Range Interpretation Comments SODIUM (BEAKER) (test code = 381) 135 meq/L 136-145 L GLUCOSE-STAT [id number] 12:29:15 Test Item Value Reference Range Interpretation Comments GLUCOSE RANDOM (BEAKER) (test code 181 mg/dL 70-110 H = 652) HGB/HCT (H&H) - STAT [id number] 12:29:15 Test Item Value Reference Range Interpretation Comments HEMOGLOBIN (BEAKER) (test code = 8.3 GM/DL 13.0-16.8 L 410) HEMATOCRIT (BEAKER) (test code = 24.0 % 40.0-50.0 L 411) SODIUM NA-STAT [id number] 12:29:14 Test Item Value Reference Range Interpretation Comments SODIUM (BEAKER) (test code = 381) 133 meq/L 136-145 L BLOOD GAS, [id number] 12:29:13 Test Item Value Reference Range Interpretation [...] (BEAKER) (test code = 1819) 70.0 POTASSIUM-STAT [id number] 12:23:50 Test Item Value Reference Range Interpretation Comments POTASSIUM (BEAKER) (test code = 5.4 meq/L 3.6-5.5 379) HGB/HCT (H&H) - STAT [id number] 12:19:25 Test Item Value Reference Range Interpretation Comments HEMOGLOBIN (BEAKER) (test code = 7.8 GM/DL 13.0-16.8 L 410) HEMATOCRIT (BEAKER) (test code = 23.0 % 40.0-50.0 L 411) GLUCOSE-STAT [id number] 12:19:24 Test Item Value Reference Range Interpretation Comments GLUCOSE RANDOM (BEAKER) (test code 185 mg/dL 70-110 H = 652) BLOOD GAS, [id number] 12:19:23 Test Item Value Reference Range Interpretation [...] (test code = 1819) 70.0 SODIUM NA-STAT [id number] 12:19:23 Test Item Value Reference Range Interpretation Comments SODIUM (BEAKER) (test code = 381) 132 meq/L 136-145 L POTASSIUM-STAT [id number] 12:19:10 Test Item Value Reference Range Interpretation Comments POTASSIUM (BEAKER) (test code = 5.1 meq/L 3.6-5.5 379) Hemoglobin [id number] 12:09:07 Test Item Value Reference Range Interpretation [...] ADM Lab Interpretation Normal (test code = 24218-9) [facility] [id number] 12:09:07 Test Item Value Reference Range Interpretation [...] ADM Lab Interpretation Normal (test code = 96523-9) [facility] [id number] 12:09:07 Test Item Value Reference Range Interpretation [...] ADM Lab Interpretation Normal (test code = 70990-2) [facility] [id number] 12:09:07 Test Item Value Reference Range Interpretation [...] 5.7- 6.4% indicates increased risk for diabetes (prediabetes)."Flasher Adjuster ID - ADM LACTIC ACID, [id number] 12:07:07 Test Item Value Reference Range Interpretation Comments LACTATE BLOOD 1.0 mmol/L 0.5-2.2 Specimen sligh tly ARTERIAL (2) ([facility]) hemoly zed (test code = 2874) Flasher Adjuster ID - BSGLUCOSE-STAT [id number] 11:24:11 Test Item Value Reference Range Interpretation Comments GLUCOSE RANDOM ([facility]) (test code 191 mg/dL 70-110 H = 652) HGB/HCT (H&H) - STAT [id number] 11:24:11 Test Item Value Reference Range Interpretation Comments HEMOGLOBIN (BEAKER) (test code = 7.9 GM/DL 13.0-16.8 L 410) HEMATOCRIT (BEAKER) (test code = 23.0 % 40.0-50.0 L 411) SODIUM NA-STAT [id number] 11:24:10 Test Item Value Reference Range Interpretation Comments SODIUM (BEAKER) (test code = 381) 132 meq/L 136-145 L BLOOD GAS, [id number] 11:24:09 Test Item Value Reference Range Interpretation [...] (test code = 1819) 80.0 LACTIC ACID, [id number] 11:12:30 Test Item Value Reference Range Interpretation Comments LACTATE BLOOD 1.1 mmol/L 0.5-2.2 Specimen sligh tly ARTERIAL (2) (BEAKER) hemoly zed (test code = 2874) Flasher Adjuster ID - BSPOTASSIUM-STAT [id number] 11:12:12 Test Item Value Reference Range Interpretation Comments POTASSIUM (BEAKER) (test code = 4.6 meq/L 3.6-5.5 379) HGB/HCT (H&H) - STAT [id number] 10:59:07 Test Item Value Reference Range Interpretation Comments HEMOGLOBIN (BEAKER) (test code = 8.9 GM/DL 13.0-16.8 L 410) HEMATOCRIT (BEAKER) (test code = 26.0 % 40.0-50.0 L 411) GLUCOSE-STAT [id number] 10:59:06 Test Item Value Reference Range Interpretation Comments GLUCOSE RANDOM (BEAKER) (test code 153 mg/dL 70-110 H = 652) SODIUM NA-STAT [id number] 10:59:05 Test Item Value Reference Range Interpretation Comments SODIUM (BEAKER) (test code = 381) 132 meq/L 136-145 L BLOOD GAS, [id number] 10:59:04 Test Item Value Reference Range Interpretation [...] (BEAKER) (test code = 1819) 80.0 POTASSIUM-STAT [id number] 10:58:12 Test Item Value Reference Range Interpretation Comments POTASSIUM (BEAKER) (test code = 5.3 meq/L 3.6-5.5 379) HGB/HCT (H&H) - STAT [id number] 08:47:12 Test Item Value Reference Range Interpretation Comments HEMOGLOBIN (BEAKER) (test code = 9.5 GM/DL 13.0-16.8 L 410) HEMATOCRIT (BEAKER) (test code = 28.0 % 40.0-50.0 L 411) GLUCOSE-STAT [id number] 08:47:11 Test Item Value Reference Range Interpretation Comments GLUCOSE RANDOM (BEAKER) (test code 121 mg/dL 70-110 H = 652) BLOOD GAS, [id number] 08:47:10 Test Item Value Reference Range Interpretation [...] (BEAKER) (test code = 1819) 95.0 CALCIUM, [id number] 08:46:35 Test Item Value Reference Range Interpretation Comments CALCIUM IONIZED (BEAKER) (test 1.12 mmol/L 1.12-1.27 code = 698) PH, BLOOD (BEAKER) (test code = 7.46 1810) POTASSIUM-STAT [id number] 08:46:14 Test Item Value Reference Range Interpretation Comments POTASSIUM (BEAKER) (test code = 3.7 meq/L 3.6-5.5 379) SODIUM NA-STAT [id number] 08:46:13 Test Item Value Reference Range Interpretation Comments SODIUM (BEAKER) (test code = 381) 135 meq/L 136-145 L [id number] 05:26:11 Test Item Value Reference Range Interpretation Comments TSH (test code = 1.491 See_Comment [Automated 57283-8) message] The system which generated this result transmit dante reference range : 0.350 - 4.940 uIU/mL. The reference range was not used to interpret this result as normal/abnormal . EMERSON (test code = EMERSON) Flasher Adjuster ID - MARZENA Krishna Lab Interpretation Normal (test code = 36458-4) [place] [id number] 05:26:11 Test Item Value Reference Range Interpretation Comments TSH (test code = 1.491 See_Comment [Automated 24873-3) message] The system which generated this result transmit dante reference range : 0.350 - 4.940 uIU/mL. The reference range was not used to interpret this result as normal/abnormal . EMERSON (test code = EMERSON) Flasher Adjuster ID - MARZENA M Lab Interpretation Normal (test code = 34494-3) [facility] 05:26:11 Test Item Value Reference Range Interpretation Comments TSH (test code = 1.491 See_Comment [Automated 14667-3) message] The system which generated this result transmit dante reference range : 0.350 - 4.940 uIU/mL. The reference range was not used to interpret this result as normal/abnormal . EMERSON (test code = EMERSON) Flasher Adjuster ID Patrick IVAN M Lab Interpretation Normal (test code = 16306-5) [facility] 05:26:11 Test Item Value Reference Range Interpretation Comments THYROID STIMULATING HORMONE 1.491 uIU/mL 0.350-4.940 (BEAKER) (test code = 772) Flasher Adjuster ID Patrick IVAN MLipid [id number] 04:13:29 Test Item Value Reference Range Interpretation Comments Triglycerides (test 49 mg/dL code = 2571-8) Cholesterol (test code 92 mg/dL = 3-3) HDL (test code = 43 mg/dL 2085-04) LDL Calculated (test 39 mg/dL code = 68560-8) EMERSON (test code = EMERSON) Triglyceride Reference Range: Low Risk <150 Borderline 150-199 High Risk 200-499 Very High Risk >=500 Cholesterol Reference Range: Low Risk <200 Borderline 200-239 High Risk >240 HDL Cholesterol Reference Range: Low Risk >=60 High Risk <40 LDL Cholesterol Reference Range: Optimal <100 Near Optimal 100-129 Borderline 130-159 High 160-189 Very High >=190 Flasher Adjuster ID - BSOperator ID - BS [facility] [id number] 04:13:29 Test Item Value Reference Range Interpretation Comments Triglycerides (test 49 mg/dL code = 2571-8) Cholesterol (test code 92 mg/dL = 3-3) HDL (test code = 43 mg/dL 9) LDL Calculated (test 39 mg/dL code = 79458-2) EMERSON (test code = EMERSON) Triglyceride Reference Range: Low Risk <150 Borderline 150-199 High Risk 200-499 Very High Risk >=500 Cholesterol Reference Range: Low Risk <200 Borderline 200-239 High Risk >240 HDL Cholesterol Reference Range: Low Risk >=60 High Risk <40 LDL Cholesterol Reference Range: Optimal <100 Near Optimal 100-129 Borderline 130-159 High 160-189 Very High >=190 Flasher Adjuster ID - BSOperator ID - BS [facility] [id number] 04:13:29 Test Item Value Reference Range Interpretation Comments Triglycerides (test 49 mg/dL code = 2571-8) Cholesterol (test code 92 mg/dL = 2093-3) HDL (test code = 43 mg/dL 5-9) LDL Calculated (test 39 mg/dL code = 13989-1) EMERSON (test code = EMERSON) Triglyceride Reference Range: Low Risk <150 Borderline 150-199 High Risk 200-499 Very High Risk >=500 Cholesterol Reference Range: Low Risk <200 Borderline 200-239 High Risk >240 HDL Cholesterol Reference Range: Low Risk >=60 High Risk <40 LDL Cholesterol Reference Range: Optimal <100 Near Optimal 100-129 Borderline 130-159 High 160-189 Very High >=190 Flasher Adjuster ID - BSOperator ID - BS [facility]IP[facility] [id number] 04:13:29 Test Item Value Reference Range Interpretation [...] Borderline 130-159 High 160-189 Very High >=190 Flasher Adjuster ID - BSOperator ID- BSCBC W/PLT COUNT & AUTO [id number] 03:49:38 Test Item Value Reference Range Interpretation [...] (BEAKER) (test code = 2801) COMPREHENSIVE METABOLIC [id number] 03:30:53 Test Item Value Reference Range Interpretation [...] S NOT APPLICABLE FOR DIALYSIS PATIEN TS. Flasher Adjuster ID - [id number] 03:30:53 Test Item Value Reference Range Interpretation Comments MAGNESIUM (BEAKER) (test code = 2.3 mg/dL 1.6-2.6 627) Flasher Adjuster ID - [id number] 03:22:52 Test Item Value Reference Range Interpretation Comments PARTIAL THROMBOPLASTIN TIME 67.2 seconds 22.5-36.0 H (BEAKER) (test code = 760) PROTHROMBIN TIME/[id number] 03:21:30 Test Item Value Reference Range Interpretation Comments PROTIME (BEAKER) 15.3 seconds 11.9-14.2 H (test code = 759) INR (BEAKER) (test 1.23 See_Comment [Automat ed message] code = 370) The system [employer] generated this result transmitted ref erence range: <=5.90. The reference range was not used to int erpret this result as normal/abnormal . RECOMMENDED COUMADIN/WARFARIN INR THERAPY RANGESSTANDARD DOSE: 2.0 - 3.0 Includes: PROPHYLAXIS for venous thrombosis, systemic embolization; TREATMENT for venous thrombosis and/or pulmonary embolus.HIGH RISK: Target INR is 2.5-3.5 for patients with mechanical heart valves.BLOOD GAS, [id number] 03:08:40 Test Item Value Reference Range Interpretation [...] (BEAKER) (test code = 1819) 21.0 POCT-GLUCOSE [id number] 21:21:10 Test Item Value Reference Range Interpretation Comments POC-GLUCOSE METER 163 mg/dL 70-110 H : TESTED A T [facility] 6720 (BEAKER) (test code = [place], 1538) [address]: Flasher Adjuster/Techni bart ID = [id number] for GLORIA VALDERRAMA PROTHROMBIN TIME/[id number] 20:13:27 Test Item Value Reference Range Interpretation Comments PROTIME (BEAKER) 15.3 seconds 11.9-14.2 H (test code = 759) INR (BEAKER) (test 1.23 See_Comment [Automat ed message] code = 370) The system [employer] generated this result transmitted ref erence range: <=5.90. The reference range was not used to int erpret this result as normal/abnormal . RECOMMENDED COUMADIN/WARFARIN INR THERAPY RANGESSTANDARD DOSE: 2.0 - 3.0 Includes: PROPHYLAXIS for venous thrombosis, systemic embolization; TREATMENT for venous thrombosis and/or pulmonary embolus.HIGH RISK: Target INR is 2.5-3.5 for patients with mechanical heart valves.[id number] 18:18:05 Test Item Value Reference Range Interpretation Comments PARTIAL THROMBOPLASTIN TIME 65.4 seconds 22.5-36.0 H ([facility]) (test code = 760) POCT-GLUCOSE [id number] 17:26:15 Test Item Value Reference Range Interpretation Comments POC-GLUCOSE METER 146 mg/dL 70-110 H : Notified RN/MD: (BRAXTON) (test code = TESTED AT [place] [address]) [facility], [address]: Flasher Adjuster/Techni bart ID = [id number] for LL OYD, TIKEYA POCT-GLUCOSE [id number] 11:21:58 Test Item Value Reference Range Interpretation Comments POC-GLUCOSE METER 142 mg/dL 70-110 H : Notified RN/MD: (BRAXTON) (test code = TESTED AT [place] [address]) [facility], [address]: Flasher Adjuster/Techni bart ID = [id number] for LL OYD, TIKEYA [id number] 11:20:08 Test Item Value Reference Range Interpretation Comments PARTIAL THROMBOPLASTIN TIME 78.4 seconds 22.5-36.0 H ([facility]) (test code = 760) POCT-GLUCOSE [id number] 08:18:13 Test Item Value Reference Range Interpretation Comments POC-GLUCOSE METER 154 mg/dL 70-110 H : Notified RN/MD: (BRAXTON) (test code = TESTED AT [place] [address]) [facility], [address]: Flasher Adjuster/Techni bart ID = [id number] for LL OYD, TIKEYA [id number] 06:28:05 Test Item Value Reference Range Interpretation Comments MAGNESIUM (BEAKER) (test code = 2.2 mg/dL 1.6-2.6 627) Flasher Adjuster ID - KEARA WBASIC METABOLIC [id number] 06:28:04 Test Item Value Reference Range Interpretation [...] S NOT APPLICABLE FOR DIALYSIS PATIEN TS. Flasher Adjuster ID - KEARA WCBC W/PLT COUNT & AUTO [id number] 05:57:11 Test Item Value Reference Range Interpretation [...] 0-1 PERCENT (BEAKER) (test code = 2801) [id number] 05:39:02 Test Item Value Reference Range Interpretation Comments PARTIAL THROMBOPLASTIN TIME 55.5 seconds 22.5-36.0 H (BEAKER) (test code = 760) BLOOD GAS, [id number] 05:24:42 Test Item Value Reference Range Interpretation [...] FIO2 (BEAKER) (test code = 1819) 21.0 [id number] 23:08:23 Test Item Value Reference Range Interpretation Comments PARTIAL THROMBOPLASTIN TIME 55.5 seconds 22.5-36.0 H (BEAKER) (test code = 760) POCT-GLUCOSE [id number] 21:56:54 Test Item Value Reference Range Interpretation Comments POC-GLUCOSE METER 108 mg/dL 70-110 : TESTED A T [facility] 6720 (BEAKER) (test code = [place], 1538) [address]: Flasher Adjuster/Techni bart ID = [id number] for Sharon Sol Transesophageal [id number] 21:03:33Ejection FractionSLEH ECHO HEARTLAB [facility]ON [facility] [id number] 21:03:33Ejection FractionSLEH ECHO HEARTLAB MKCKESSON [facility] HospitalTrans[facility]ophageal [id number] 21:03:33Ejection FractionSLEH ECHO HEARTLAB MKCKESSON [facility] HospitalPOCT-GLUCOSE [id number] 17:16:14 Test Item Value Reference Range Interpretation Comments POC-GLUCOSE METER 112 mg/dL 70-110 H : TESTED A T [facility] 6720 (BEAKER) (test code = DOMIN[place] [facility] [place], 1538) [address]: Flasher Adjuster/Techni bart ID = [id number] for PHU NICOLE NAHED B-type Natriuretic Factor (BNP)2021-09-05 17:13:19 Test Item Value Reference Range Interpretation Comments BNP (test code = 17069-3) 427 pg/mL 0-100 H EMERSON (test code = EMERSON) Flasher Adjuster ID - BS Lab Interpretation (test Abnormal code = 59913-6) [facility]2021-09-05 17:13:19 Test Item Value Reference Range Interpretation Comments BNP (test code = 37566-1) 427 pg/mL 0-100 H EMERSON (test code = EMERSON) Flasher Adjuster ID - BS Lab Interpretation (test Abnormal code = 30112-7) [facility] (BNP)2021-09-05 17:13:19 Test Item Value Reference Range Interpretation Comments BNP (test code = 75460-5) 427 pg/mL 0-100 H EMERSON (test code = EMERSON) Flasher Adjuster ID - BS Lab Interpretation (test Abnormal code = 09252-0) [facility] NATRIURETIC FACTOR (BNP)2021-09-05 17:13:19 Test Item Value Reference Range Interpretation Comments B-TYPE NATRIURETIC PEPTIDE (BEAKER) 427 pg/mL 0-100 H (test code = 700) Flasher Adjuster ID - [id number] 17:08:24 Test Item Value Reference Range Interpretation Comments MAGNESIUM (BEAKER) (test code = 2.3 mg/dL 1.6-2.6 627) Flasher Adjuster ID - BSBASIC METABOLIC [id number] 17:08:23 Test Item Value Reference Range Interpretation [...] S NOT APPLICABLE FOR DIALYSIS PATIEN TS. Flasher Adjuster ID - [id number] 16:56:34 Test Item Value Reference Range Interpretation Comments PARTIAL THROMBOPLASTIN TIME 78.6 seconds 22.5-36.0 H (BEAKER) (test code = 760) POCT-GLUCOSE [id number] 11:40:10 Test Item Value Reference Range Interpretation Comments POC-GLUCOSE METER 123 mg/dL 70-110 H : TESTED A T [facility] 6720 (BEAKER) (test code = DOMINI[place], 1538) [address]: Flasher Adjuster/Techni bart ID = [id number] for HERIBERTO BROWN [id number] 08:48:28 Test Item Value Reference Range Interpretation Comments PARTIAL THROMBOPLASTIN TIME 50.1 seconds 22.5-36.0 H (BEAKER) (test code = 760) POCT-GLUCOSE [id number] 08:33:40 Test Item Value Reference Range Interpretation Comments POC-GLUCOSE METER 83 mg/dL 70-110 : TESTED A T [facility] 6720 ([place]) (test code = BRIJESHSHAKIRA Srikanth [place], 1538) [address]: Flasher Adjuster/Techni bart ID = [id number] for NAHED JOHN Carotid doppler [id number] 07:35:52Ejection FractionSLEH ECHO [facility]LAB [facility] HospitalCarotid doppler [id number] 07:35:52Ejection FractionSLEH ECHO [facility]ARTLAB [facility] HospitalCarotid doppler [id number] 07:35:52Ejection FractionSLEH ECHO HEARTLAB [facility] 05:35:19 Test Item Value Reference Range Interpretation Comments PARTIAL THROMBOPLASTIN TIME > seconds 22.5-36.0 HH ([place]) (test code = 760) RAD, CHEST, 1 VIEW, NON [id number] 05:07:00Reason for exam:->Respiratory failureShould this be performed at the bedside?->Yes [facility] 1945 Sex: MFINAL REPORT RAD, CHEST, 1 VIEW, NON DEPT INDICATION: Respiratory failure COMPARISON: Prior day's exam FINDINGS: Portable frontal view of the chest. IMPRESSION: Lungs and pleura: Bilateral pulmonary opacities are reduced. No pneumothorax.Heart and mediastinum: Stable contours. Additional findings: None. Signed: Link [place] Verified Date/Time: 09/05/2021 05:07:55 [id number] 05:06:53 Test Item Value Reference Range Interpretation Comments MAGNESIUM (BEAKER) (test code = 2.3 mg/dL 1.6-2.6 627) Flasher Adjuster ID - SHANE GBASIC METABOLIC [id number] 05:06:52 Test Item Value Reference Range Interpretation [...] S NOT APPLICABLE FOR DIALYSIS PATIEN TS. Flasher Adjuster ID - SHANE GVancomycin level, [id number] 05:03:34 Test Item Value Reference Range Interpretation Comments Vancomycin Tr (test code = 7.0 ug/mL 10.0-20.0 L 4092-3) EMERSON (test code = EMERSON) Flasher Adjuster ID - SHANE G Lab Interpretation (test Abnormal code = 34711-8) [facility] HospitalVancom[facility], [id number] 05:03:34 Test Item Value Reference Range Interpretation Comments Vancomycin Tr (test code = 7.0 ug/mL 10.0-20.0 L 4092-3) EMERSON (test code = EMERSON) Flasher Adjuster ID - SHANE G Lab Interpretation (test Abnormal code = 12926-4) [facility] HospitalVancomycin level, [id number] 05:03:34 Test Item Value Reference Range Interpretation Comments Vancomycin Tr (test code = 7.0 ug/mL 10.0-20.0 L 4092-3) EMERSON (test code = EMERSON) Flasher Adjuster ID Patrick LYNN G Lab Interpretation (test Abnormal code = 38404-4) [facility] HospitalVANCOMYCIN LEVEL, [id number] 05:03:34 Test Item Value Reference Range Interpretation Comments VANCOMYCIN TROUGH (BEAKER) (test 7.0 ug/mL 10.0-20.0 L code = 522) Flasher Adjuster ID - SHANE GBLOOD GAS, [id number] 04:54:51 Test Item Value Reference Range Interpretation [...] (BEAKER) (test code = 1819) 21.0 POCT-GLUCOSE [id number] 00:08:56 Test Item Value Reference Range Interpretation Comments POC-GLUCOSE METER 92 mg/dL 70-110 : TESTED A T [facility] 6720 (BEAKER) (test code [facility], = 1538) [address]: Flasher Adjuster/Techni bart ID = [id number] for Christopher Hoskins [id number] 22:59:43 Test Item Value Reference Range Interpretation Comments PARTIAL THROMBOPLASTIN TIME 105.5 seconds 22.5-36.0 H (BEAKER) (test code = 760) POCT-GLUCOSE [id number] 22:43:54 Test Item Value Reference Range Interpretation Comments POC-GLUCOSE METER 131 mg/dL 70-110 H : TESTED A T [facility] 6720 (BEAKER) (test code = DOMINIQUE [facility], 1538) [address]: Flasher Adjuster/Techni bart ID = [id number] for ANDI MIGUEL BASIC METABOLIC [id number] 20:21:48 Test Item Value Reference Range Interpretation [...] S NOT APPLICABLE FOR DIALYSIS PATIEN TS. Flasher Adjuster ID - [id number] 20:21:48 Test Item Value Reference Range Interpretation Comments MAGNESIUM (BEAKER) (test code = 2.4 mg/dL 1.6-2.6 627) Flasher Adjuster ID - DBBLOOD GAS, [id number] 18:19:48 Test Item Value Reference Range Interpretation [...] (BEAKER) (test code = 1819) 21.0 POCT-GLUCOSE [id number] 18:13:29 Test Item Value Reference Range Interpretation Comments POC-GLUCOSE METER 98 mg/dL 70-110 : TESTED A T [facility] 6720 (BEAKER) (test code = [facility], 1538) [address]: Flasher Adjuster/Techni bart ID = [id number] for THOMAS JOHNA [id number] 15:50:51 Test Item Value Reference Range Interpretation Comments PARTIAL THROMBOPLASTIN TIME 79.7 seconds 22.5-36.0 H (BEAKER) (test code = 760) [id number] 14:42:01 Test Item Value Reference Range Interpretation Comments PARTIAL THROMBOPLASTIN TIME 196.8 seconds 22.5-36.0 HH (BEAKER) (test code = 760) [id number] 13:31:24 Test Item Value Reference Range Interpretation Comments PARTIAL THROMBOPLASTIN TIME > seconds 22.5-36.0 HH (BEAKER) (test code = 760) POCT-GLUCOSE [id number] 12:32:34 Test Item Value Reference Range Interpretation Comments POC-GLUCOSE METER 96 mg/dL 70-110 : TESTED A T [facility] 6720 (BEAKER) (test code = [facility], 1538) [address]: Flasher Adjuster/Techni bart ID = [id number] for THOMAS JOHNA POCT-GLUCOSE [id number] 09:39:48 Test Item Value Reference Range Interpretation Comments POC-GLUCOSE METER 93 mg/dL 70-110 : TESTED A T [facility] 6720 (BEAKER) (test code = [facility], 1538) [address]: Flasher Adjuster/Techni bart ID = [id number] for MELANIERAJIV NICOLE, NAHED [id number] 05:38:09 Test Item Value Reference Range Interpretation Comments MAGNESIUM (BEAKER) (test code = 2.2 mg/dL 1.6-2.6 627) Flasher Adjuster ID - KAYLEEN LBASIC METABOLIC [id number] 05:38:08 Test Item Value Reference Range Interpretation [...] S NOT APPLICABLE FOR DIALYSIS PATIEN TS. Flasher Adjuster ID - PIAYA [id number] 05:37:51 Test Item Value Reference Range Interpretation Comments PARTIAL THROMBOPLASTIN TIME 74.7 seconds 22.5-36.0 H (BEAKER) (test code = 760) BLOOD GAS, [id number] 05:36:41 Test Item Value Reference Range Interpretation [...] 1819) 21.0 CBC W/PLT COUNT & AUTO [id number] 05:07:56 Test Item Value Reference Range Interpretation [...] = 2801) RAD, CHEST, 1 VIEW, NON [id number] 04:31:00Reason for exam:->Respiratory failureShould this be performed at the bedside?->Yes [facility] 1945 Sex: MFINAL REPORT RAD, CHEST, 1 VIEW, NON DEPT INDICATION: Respiratory failure COMPARISON: Prior day's exam FINDINGS: Portable frontal view of the chest. IMPRESSION: Support Lines: None Lungs and pleura: Reduced airspace and pleural opacities. No pneumothorax.Heart and mediastinum: Stable contours. Additional findings: None. Signed: Link [place] Verified Date/Time: 09/04/2021 04:31:46 POCT-GLUCOSE [id number] 22:15:29 Test Item Value Reference Range Interpretation Comments POC-GLUCOSE METER 113 mg/dL 70-110 H : TESTED A T [facility] 6720 (BEAKER) (test code = DOMINI[place], 1538) [address]: Flasher Adjuster/Techni bart ID = [id number] for EVAN COSTELLO [id number] 17:34:10 Test Item Value Reference Range Interpretation Comments Procalcitonin (test code = 0.74 ng/mL <0.05 H 95495-8) EMERSON (test code = EMERSON) SEPSIS RISK (ng/mL)Low: 0.05-0.50Intermedia te: 0.51-2.00High: >=2.01 Lab Interpretation (test Abnormal code = 94848-9) [facility] HospitalPorbolRopphzginnwem3221-36-62 17:34:10 Test Item Value Reference Range Interpretation Comments Procalcitonin (test code = 0.74 ng/mL <0.05 H 17164-8) EMERSON (test code = EMERSON) SEPSIS RISK (ng/mL)Low: 0.05-0.50Intermedia te: 0.51-2.00High: >=2.01 Lab Interpretation (test Abnormal code = 77537-6) [facility] HospitalZcdujcCtkwbdikplioj0115-37-87 17:34:10 Test Item Value Reference Range Interpretation Comments Procalcitonin (test code = 0.74 ng/mL <0.05 H 88844-9) EMERSON (test code = EMERSON) SEPSIS RISK (ng/mL)Low: 0.05-0.50Intermedia te: 0.51-2.00High: >=2.01 Lab Interpretation (test Abnormal code = 74679-6) [facility] HospitalWcyowcWWMCBFATSBIDQ9329-31-56 17:34:10 Test Item Value Reference Range Interpretation Comments PROCALCITONIN (BEAKER) (test code 0.74 ng/mL <0.05 H = 3036) SEPSIS RISK (ng/mL)Low: 0.05-0.50Intermediate: 0.51-2.00High: >=2.01BASIC METABOLIC [id number] 17:02:45 Test Item Value Reference Range Interpretation [...] S NOT APPLICABLE FOR DIALYSIS PATIEN TS. Flasher Adjuster ID - [id number] 17:02:45 Test Item Value Reference Range Interpretation Comments MAGNESIUM (BEAKER) (test code = 2.3 mg/dL 1.6-2.6 627) Flasher Adjuster ID - DBPOCT-GLUCOSE [id number] 16:39:27 Test Item Value Reference Range Interpretation Comments POC-GLUCOSE METER 102 mg/dL 70-110 : TESTED A T [facility] 6720 (BEAKER) (test code = DOMINIQUE [facility], 1538) [address]: Flasher Adjuster/Techni bart ID = [id number] for [place], Eduardo BLOOD GAS, [id number] 16:20:14 Test Item Value Reference Range Interpretation [...] 2D Echo W/Doppler(CW/PW/Color)2021-09-03 14:12:53Ejection FractionSLEH ECHO HEARTLAB [facility]/Doppler(CW/PW/Color)2021-09-03 14:12:53Ejection FractionSLEH ECHO HEARTLAB [facility] W/Doppler(CW/PW/Color) 2021-09-03 14:12:53Ejection FractionSLEH ECHO HEARTLAB [facility] CenterMAGNESIUM2022-01-16 07:54:36 Test Item Value Reference Range Interpretation Comments MAGNESIUM (BEAKER) (test code = 2.4 mg/dL 1.6-2.6 627) Flasher Adjuster ID - KAYLEEN LRAD, CHEST, 1 VIEW, NON [id number] 06:39:00Reason for exam:->Respiratory failureShould this be performed at the bedside?->Yes [facility] 1945 Sex: MFINAL REPORT Chest, one view. HISTORY: Respiratory failure COMPARISON: Radiograph from yesterday IMPRESSION: The bilateral perihilar opacities have increased, most consistent with worsening pulmonary edema. Small right and trace left pleural effusions. No pneumothorax. The cardiac silhouette is unchanged in size. No acute bone abnormality. Biopsy clip over the stomach. Signed: Nikhil Sotelo [facility] Verified Date/Time: 09/03/2021 06:39:59 BASIC METABOLIC [id number] 05:41:02 Test Item Value Reference Range Interpretation [...] S NOT APPLICABLE FOR DIALYSIS PATIEN TS. Flasher Adjuster ID - ZACAYA LBLOOD GAS, [id number] 05:28:49 Test Item Value Reference Range Interpretation [...] = 1819) 50.0 High Sensitivity Troponin I ([facility]/Suraj Only)2021-09-03 05:25:39 Test Item Value Reference Range Interpretation Comments Troponin I HS (test 35 pg/ml See_Comment [Metra[employer] code = 12723-9) message] The system which generated this result transmitted reference range : <=35. The reference range was not used to interpret this result as normal/abnormal . EMERSON (test code = Flasher Adjuster ID - EMERSON) KAYLEEN LThe BEARING GRINDER STAT High Sensitivity Troponin-I results should be used in conjunction with other diagnostic information such as ECG, clinical observations and information, and patient symptoms to aid in the diagnosis of [place]. Lab Interpretation Normal (test code = 38929-3) [facility] Trop[facility] ([facility]/Suraj Only) 2021-09-03 05:25:39 Test Item Value Reference Range Interpretation Comments Troponin I HS (test 35 pg/ml See_Comment [[employer] code = 48410-6) message] The system which generated this result transmitted reference range : <=35. The reference range was not used to interpret this result as normal/abnormal . EMERSON (test code = Flasher Adjuster ID - EMERSON) ZACMARIELA LThe BEARING GRINDER STAT High Sensitivity Troponin-I results should be used in conjunction with other diagnostic information such as ECG, clinical observations and information, and patient symptoms to aid in the diagnosis of [place]. Lab Interpretation Normal (test code = 61117-1) [facility] HospitalHigh [facility] Troponin I ([facility]/Suraj Only) 2021-09-03 05:25:39 Test Item Value Reference Range Interpretation Comments Troponin I HS (test 35 pg/ml See_Comment [Automa dante code = 24197-2) message] The system which generated this result transmitted reference range : <=35. The reference range was not used to interpret this result as normal/abnormal . EMERSON (test code = Flasher Adjuster ID - EMERSON) ZACMARIELA LThe BEARING GRINDER STAT High Sensitivity Troponin-I results should be used in conjunction with other diagnostic information such as ECG, clinical observations and information, and patient symptoms to aid in the diagnosis of [place]. Lab Interpretation Normal (test code = 02474-5) [facility] HospitalHIGH SENSITIVITY TROPONIN [id number] 05:25:39 Test Item Value Reference Range Interpretation Comments HIGH SENSITIVITY 35 pg/ml See_Comment [Automated message] TROPONIN I (test code = The system which [id number]) generated this result transmitted ref erence range: <=35. Th e reference range was not used to int erpret this result as normal/abnormal . Flasher Adjuster ID - KAYLEEN LThe BEARING GRINDER STAT High Sensitivity Troponin-I results should be used in conjunction with other diagnostic information such as ECG, clinical observations and information, and patient symptoms to aid in the diagnosis of [place].B-TYPE NATRIURETIC FACTOR (BNP)2021-09-03 05:25:38 Test Item Value Reference Range Interpretation Comments B-TYPE NATRIURETIC PEPTIDE 1522 pg/mL 0-100 H (BEAKER) (test code = 700) Flasher Adjuster ID Patrick BEYER LLactic acid, [id number] 05:08:12 Test Item Value Reference Range Interpretation Comments Lactate, Venous (test code 0.98 mmol/L 0.50-2.20 = 2872) EMERSON (test code = EMERSON) Flasher Adjuster ID - KAYLEEN L Lab Interpretation (test Normal code = 59308-8) [facility] HospitalLactic acid, [id number] 05:08:12 Test Item Value Reference Range Interpretation Comments Lactate, Venous (test code 0.98 mmol/L 0.50-2.20 = 2872) EMERSON (test code = EMERSON) Flasher Adjuster ID - PIAYA L Lab Interpretation (test Normal code = 03034-7) [facility] HospitalLactic acid, [id number] 05:08:12 Test Item Value Reference Range Interpretation Comments Lactate, Venous (test code 0.98 mmol/L 0.50-2.20 = 2872) EMERSON (test code = EMERSON) Flasher Adjuster ID - PIAYA L Lab Interpretation (test Normal code = 14750-0) [facility] HospitalLACTIC ACID, [id number] 05:08:12 Test Item Value Reference Range Interpretation Comments LACTATE BLOOD VENOUS (2) (BEAKER) 0.98 mmol/L 0.50-2.20 (test code = 2872) Flasher Adjuster ID - KAYLEEN LCBC W/PLT COUNT & AUTO [id number] 04:46:58 Test Item Value Reference Range Interpretation [...] (test code = 2801) HIGH SENSITIVITY TROPONIN [id number] 23:24:52 Test Item Value Reference Range Interpretation Comments HIGH SENSITIVITY 60 pg/ml See_Comment H [Automated message] TROPONIN I (test code = The system which [id number]) generated this result transmitted ref erence range: <=35. Th e reference range was not used to int erpret this result as normal/abnormal . Flasher Adjuster ID - KAYLEEN LThe BEARING GRINDER STAT High Sensitivity Troponin-I results should be used in conjunction with other diagnostic information such as ECG, clinical observations and information, and patient symptoms to aid in the diagnosis of [place].LACTIC ACID, [id number] 23:16:31 Test Item Value Reference Range Interpretation Comments LACTATE BLOOD VENOUS 2.39 mmol/L 0.50-2.20 H Specime n slightly (2) (BEAKER) (test hemolyzed code = 2872) Flasher Adjuster ID - KAYLEEN LBASIC METABOLIC [id number] 20:00:02 Test Item Value Reference Range Interpretation [...] S NOT APPLICABLE FOR DIALYSIS PATIEN TS. Flasher Adjuster ID - DBLACTIC ACID, [id number] 19:50:59 Test Item Value Reference Range Interpretation Comments LACTATE BLOOD VENOUS 3.70 mmol/L 0.50-2.20 H Specime n slightly (2) (BEAKER) (test hemolyzed code = 3872) Flasher Adjuster ID - [id number] 18:48:36 Test Item Value Reference Range Interpretation Comments PROCALCITONIN (BEAKER) (test code = < ng/mL <0.05 3036) SEPSIS RISK (ng/mL)Low: 0.05-0.50Intermediate: 0.51-2.00High: >=2.01B-TYPE NATRIURETIC FACTOR (BNP)2021-09-02 18:06:28 Test Item Value Reference Range Interpretation Comments B-TYPE NATRIURETIC PEPTIDE (BEAKER) 801 pg/mL 0-100 H (test code = 700) Flasher Adjuster ID - DBHIGH SENSITIVITY TROPONIN [id number] 18:06:07 Test Item Value Reference Range Interpretation Comments HIGH SENSITIVITY 10 pg/ml See_Comment [Automated message] TROPONIN I (test code = The system which [id number]) generated this result transmitted ref erence range: <=35. Th e reference range was not used to int erpret this result as normal/abnormal . Flasher Adjuster ID - DBThe BEARING GRINDER STAT High Sensitivity Troponin-I results should be used in conjunctionwith other diagnostic information such as ECG, clinical observations and information, and patient symptoms to aid in the diagnosis of [place].LACTIC ACID, [id number] 18:03:35 Test Item Value Reference Range Interpretation Comments LACTATE BLOOD 5.0 mmol/L 0.5-2.2 HH Specimen sligh tly ARTERIAL (2) (BEAKER) hemoly zed (test code = 2874) Flasher Adjuster ID - DBRAD, CHEST, 1 VIEW, NON [id number] 18:01:00Reason for exam:- >dyspneaShould this be performed at the bedside?->Yes [facility] 1945 Sex: MFINAL REPORT RAD, CHEST, 1 VIEW, NON DEPT INDICATION: dyspnea COMPARISON: 07/03/21 FINDINGS: Portable frontal view of the chest. IMPRESSION: Support Lines: Overlying leads Lungs andpleura: Bibasilar airspace disease and small bilateral effusions, compatible with mild volume overload. No significant pneumothorax. Heart and mediastinum: Normal contours. Additional findings: None. Signed: Gaby Cordero Verified Date/Time: 09/02/2021 18:01:04 -[id number] 17:41:20 Test Item Value Reference Range Interpretation Comments POC-Glucose (test code = 245 mg/dL 70-110 H : T ESTED AT [facility] 3015) 3653 [facility], 770 30: Flasher Adjuster/Techni bart ID = [id number] for RIA, NAVDEEP Lab Interpretation (test Abnormal code = 58378-0) [facility] HospitalPOCT-[id number] 17:41:20 Test Item Value Reference Range Interpretation Comments POC-Glucose (test code = 245 mg/dL 70-110 H : T ESTED AT [facility] 1855) 6720 [facility], 770 30: Flasher Adjuster/Techni bart ID = [id number] for RIA, NAVDEEP Lab Interpretation (test Abnormal code = 40049-6) [facility]-[id number] 17:41:20 Test Item Value Reference Range Interpretation Comments POC-Glucose (test code = 245 mg/dL 70-110 H : T ESTED AT [facility] 1855) 6720 [facility], 770 30: Flasher Adjuster/Techni bart ID = [id number] for RIA, NAVDEEP Lab Interpretation (test Abnormal code = 81096-1) [facility]-[id number] 17:41:20 Test Item Value Reference Range Interpretation Comments POC-GLUCOSE (BEAKER) 245 mg/dL 70-110 H : TESTE D AT [facility] 6720 (test code = 1855) [facility], [address]: Flasher Adjuster/Techni bart ID = [id number] for PAIG E, NAVDEEP DSYO-[id number] 17:41:19 Test Item Value Reference Range Interpretation Comments POC-Hemoglobin (test code 12.2 g/dL 13.0-16.8 L : TESTED AT [facility] = 1856) 6720 [facility], 770 30: Flasher Adjuster/Techni bart ID = [id number] for RIA, NAVDEEP Lab Interpretation (test Abnormal code = 06968-8) [facility] HospitalLtbyuuWHTL-[id number] 17:41:19 Test Item Value Reference Range Interpretation Comments POC-Hematocrit (test code 36 % 40-50 L : = 1857) Flasher Adjuster/Techni bart ID = [id number] for RIA, NAVDEEP Lab Interpretation (test Abnormal code = 13833-8) [facility] HospitalWqmscfQJMA-MKSJMGBJNJ9239-92-15 17:41:19 Test Item Value Reference Range Interpretation Comments POC-Hemoglobin (test code 12.2 g/dL 13.0-16.8 L : TESTED AT [facility] = 1856) 6720 [facility], 770 30: Flasher Adjuster/Techni bart ID = [id number] for RIA, NAVDEEP Lab Interpretation (test Abnormal code = 10550-1) [facility] HospitalDxughwQGSV-AJZIKQPDQO2456-22-15 17:41:19 Test Item Value Reference Range Interpretation Comments POC-Hematocrit (test code 36 % 40-50 L : = 1857) Flasher Adjuster/Techni bart ID = [id number] for RIA, NAVDEEP Lab Interpretation (test Abnormal code = 36077-9) [facility]TPPOJVBCGC9102-35-05 17:41:19 Test Item Value Reference Range Interpretation Comments POC-Hemoglobin (test code 12.2 g/dL 13.0-16.8 L : TESTED AT [facility] = 1856) [address] [facility], 770 30: Flasher Adjuster/Techni bart ID = [id number] for RIA, NAVDEEP Lab Interpretation (test Abnormal code = 86328-6) [facility] HospitalUiewllBLKE-IEERWDWJLQ1846-89-15 17:41:19 Test Item Value Reference Range Interpretation Comments POC-Hematocrit (test code 36 % 40-50 L : = 1857) Flasher Adjuster/Techni bart ID = [id number] for RIA, NAVDEEP Lab Interpretation (test Abnormal code = 40547-1) [facility] HospitalSzziyvXQEV-GNVOVHOTDC8628-56-15 17:41:19 Test Item Value Reference Range Interpretation Comments POC-HEMOGLOBIN 12.2 g/dL 13.0-16.8 L : TESTED AT [facility] 6720 (BEAKER) (test code [facility], = 1856) [address]: Flasher Adjuster/Techni bart ID = [id number] for PAIG E, NAVDEEP SMKH-[id number] 17:41:19 Test Item Value Reference Range Interpretation Comments POC-HEMATOCRIT 36 % 40-50 L : Flasher Adjuster/Te chnician ID = (BEINESSA) (test code = 157928 for RIA, NAVDEEP 1857) MAT-Hunipwyix0366-77-15 17:41:18 Test Item Value Reference Range Interpretation Comments POC-Potassium (test code 4.6 meq/L 3.6-5.5 : T ESTED AT [facility] = 1540) 20 [facility], 770 30: Flasher Adjuster/Techni bart ID = [id number] for RIA, NAVDEEP Lab Interpretation (test Normal code = 73228-0) [facility]-Ixgwahtds6275-51-56 17:41:18 Test Item Value Reference Range Interpretation Comments POC-Potassium (test code 4.6 meq/L 3.6-5.5 : T ESTED AT [facility] = 1540) 20 [facility], 770 30: Flasher Adjuster/Techni bart ID = [id number] for RIA, NAVDEEP Lab Interpretation (test Normal code = 28749-6) [facility]-Xomvutvnj3401-85-55 17:41:18 Test Item Value Reference Range Interpretation Comments POC-Potassium (test code 4.6 meq/L 3.6-5.5 : T ESTED AT [facility] = 1540) [address] [place] [address], 770 30: Flasher Adjuster/Techni bart ID = [id number] for RIA, NAVDEEP Lab Interpretation (test Normal code = 75387-8) [facility]-VOYIFTMYY8112-85-63 17:41:18 Test Item Value Reference Range Interpretation Comments POC-POTASSIUM 4.6 meq/L 3.6-5.5 : TESTED AT [place] [address] (BEAKER) (test code [facility], = 1540) [address]: Flasher Adjuster/Techni bart ID = [id number] for PAIG E, NAVDEEP TWC-Gqnfyw8359-62-15 17:41:13 Test Item Value Reference Range Interpretation Comments POC-Sodium (test code = 133 meq/L 135-148 L : TE STED AT [facility] 1542) [address] [place] [address], 770 30: Flasher Adjuster/Techni bart ID = [id number] for RIA, NAVDEEP Lab Interpretation (test Abnormal code = 40820-4) [facility]-Zrcayj3359-27-80 17:41:13 Test Item Value Reference Range Interpretation Comments POC-Sodium (test code = 133 meq/L 135-148 L : TE STED AT [facility] 1542) 6720 [facility], 770 30: Flasher Adjuster/Techni bart ID = [id number] for RIA, NAVDEEP Lab Interpretation (test Abnormal code = 70974-6) [facility]-Xhthds7847-83-56 17:41:13 Test Item Value Reference Range Interpretation Comments POC-Sodium (test code = 133 meq/L 135-148 L : TE STED AT [facility] 1542) 6720 [facility] [place], 770 30: Flasher Adjuster/Techni bart ID = [id number] for RIA, NAVDEEP Lab Interpretation (test Abnormal code = 30599-4) [facility]-MDPVPB2355-37-12 17:41:13 Test Item Value Reference Range Interpretation Comments POC-SODIUM (BEAKER) 133 meq/L 135-148 L : TESTED AT [facility] 6720 (test code = 1542) [facility], [address]: Flasher Adjuster/Techni bart ID = [id number] for MARIELYG E, NAVDEEP POC-Blood gases, ksgfgauu5050-80-31 17:41:12 Test Item Value Reference Range Interpretation [...] tomated message] code = 1838) The system [facility] h generated this result transmit dante reference range : 80.0 - 90.0 mm Hg. The reference r mayra was not used to interpret this result as normal/abnormal . SO2, Arterial-POC (test 92.0 % 96.0-97.0 L code = 1839) HCO3, Arterilal-POC 17.9 meq/L 21.0-29.0 L (test code = 1840) BE, Arterial-POC (test -7.0 meq/L -2.0-3.0 L : MARIO ADNTE AT [facility] code = 1841) 6720 [facility], [address]: Flasher Adjuster/Techni bart ID = [id number] for RIA, NAVDEEP Lab Interpretation Abnormal (test code = 35703-4) [facility]-Blood gases, ptqnhulc8798-34-70 17:41:12 Test Item Value Reference Range Interpretation [...] tomated message] code = 1838) The system [employer] generated this result transmit dante reference range : 80.0 - 90.0 mm Hg. The reference r mayra was not used to interpret this result as normal/abnormal . SO2, Arterial-POC (test 92.0 % 96.0-97.0 L code = 1839) HCO3, Arterilal-POC 17.9 meq/L 21.0-29.0 L (test code = 1840) BE, Arterial-POC (test -7.0 meq/L -2.0-3.0 L : MARIO DANTE AT [facility] code = 1841) 6720 [facility], [address]: Flasher Adjuster/Techni bart ID = [id number] for RIADAVIDNAVDEEP Lab Interpretation Abnormal (test code = 15742-7) [facility]-Blood gases, knqpnebi6137-38-90 17:41:12 Test Item Value Reference Range Interpretation [...] meq/L -2.0-3.0 L : MARIO DANTE AT [facility] code = 1841) 67[address] [facility], [address]: Flasher Adjuster/Techni bart ID = [id number] for NAVDEEP ROLLINS Lab Interpretation Abnormal (test code = 52526-3) [facility]-BLOOD GASES, [id number] 17:41:12 Test Item Value Reference Range Interpretation [...] -7.0 meq/L -2.0-3.0 L : TESTED AT [facility] 6720 ARTERIAL-POC [facility], (BEAKER) (test code 557[address]: = 1841) Flasher Adjuster/Techni bart ID = [id number] for PAIG E, NAVDEEP CT, CHEST, WITH TETZDKLR5566-00-40 16:35:00Unlisted Reason for Exam - Click Yes and Enter Reason Below->YesUnlisted Reason for Exam->rapid 40 lb wt loss, concern for malignancy [facility] : 1945 Sex: [...] MDReport Verified Date/Time: 09/02/2021 16:35:31 Reading Location: [address] Body Reading Room BASI METABOLIC [id number] 05:54:20 Test Item Value Reference Range Interpretation [...] S NOT APPLICABLE FOR DIALYSIS PATIEN TS. Flasher Adjuster ID - SHANE GCBC W/PLT COUNT & AUTO GSGXQOWOEAAZ9408-45-35 05:27:33 Test Item Value Reference Range Interpretation [...] 0-1 PERCENT (BEAKER) (test code = 2801) Bpkeohfc9355-67-61 18:20:35 Test Item Value Reference Range Interpretation Comments Ferritin (test code = 36.01 ng/mL 5.00-275.00 2276-4) EMERSON (test code = EMERSON) Flasher Adjuster ID - PIAYA L Lab Interpretation (test Normal code = 72835-5) [facility] HospitalFerritin20[facility]-14 18:20:35 Test Item Value Reference Range Interpretation Comments Ferritin (test code = 36.01 ng/mL 5.00-275.00 2276-4) EMERSON (test code = EMERSON) Flasher Adjuster ID - PIAYA L Lab Interpretation (test Normal code = 12250-9) [facility] HospitalFerritin2022-01-14 18:20:35 Test Item Value Reference Range Interpretation Comments Ferritin (test code = 36.01 ng/mL 5.00-275.00 2276-4) EMERSON (test code = EMERSON) Flasher Adjuster ID - PIAYA L Lab Interpretation (test Normal code = 70876-4) [facility] HospitalFERRITIN2022-01-14 18:20:35 Test Item Value Reference Range Interpretation Comments FERRITIN (BEAKER) (test code = 36.01 ng/mL 5.00-275.00 361) Flasher Adjuster ID - KAYLEEN Ardon, TIBC, % sat. (without ferritin)2021-09-01 18:00:19 Test Item Value Reference Range Interpretation Comments Iron (test code = 2498-4) 14.0 ug/dL 40.0-160.0 L TIBC (test code = 2500-7) 355 ug/dL 250-450 Iron % Saturation (test 4 % 20-55 L code = 2502-3) EMERSON (test code = EMERSON) Flasher Adjuster ID - PIAYA L Lab Interpretation (test Abnormal code = 99529-7) [facility] HospitalIron, TIBC, % sat. (without ferritin)2021-09-01 18:00:19 Test Item Value Reference Range Interpretation Comments Iron (test code = 2498-4) 14.0 ug/dL 40.0-160.0 L TIBC (test code = 2500-7) 355 ug/dL 250-450 Iron % Saturation (test 4 % 20-55 L code = 2502-3) EMERSON (test code = EMERSON) Flasher Adjuster ID - PIAYA L Lab Interpretation (test Abnormal code = 78265-3) [facility] HospitalIron, TIBC, % sat. (without ferritin)2021-09-01 18:00:19 Test Item Value Reference Range Interpretation Comments Iron (test code = 2498-4) 14.0 ug/dL 40.0-160.0 L TIBC (test code = 2500-7) 355 ug/dL 250-450 Iron % Saturation (test 4 % 20-55 L code = 2502-3) EMERSON (test code = EMERSON) Flasher Adjuster ID - PIAYA L Lab Interpretation (test Abnormal code = 02174-6) [facility] HospitalIRON, TIBC, % SAT. (WITHOUT FERRITIN)2021-09-01 18:00:19 Test Item Value Reference Range Interpretation Comments IRON (BEAKER) (test code = 547) 14.0 ug/dL 40.0-160.0 L TOTAL IRON BINDING CAPACITY 355 ug/dL 250-450 (BEAKER) (test code = 769) IRON % SATURATION (2) (BEAKER) 4 % 20-55 L (test code = 2590) Flasher Adjuster ID - PIAYA L2D Echo W/Doppler(CW/PW/Color)2021-09-01 17:31:53Ejection FractionSLEH ECHO HEARTLAB [facility] W/Doppler(CW/PW/Color)2021-09-01 17:31:53Ejection FractionSLEH ECHO HEARTLAB [employer] and CommunicationsJames B. [facility] Hospital2D Echo W/Doppler(CW/PW/Color) 2021-09-01 17:31:53Ejection FractionSLEH ECHO HEARTLAB [facility] CenterFL, ESOPH, SWALLOW FUNCTION, WITH CINE OR [id number] 12:11:00Reason for exam:->TIMED BARIUIM SWALLOW at 1, 5 and 10 minutes with tablet for dysphagia w/ neg [facility]GD [facility] : 1945 Sex: [...] [place] Verified Date/Time: 09/01/2021 12:11:08 Reading Location: [address] Ortho Consult Reading Room HEPATIC FUNCTION [id number] 07:23:40 Test Item Value Reference Range Interpretation [...] (test code = 45 U/L 6-55 347) Flasher Adjuster ID - PIAYA JFOCUJXJZI2386-01-04 07:23:39 Test Item Value Reference Range Interpretation Comments MAGNESIUM (BEAKER) (test code = 2.3 mg/dL 1.6-2.6 627) Flasher Adjuster ID - KAYLEEN OBLZQZGSOXY1151-56-08 07:23:39 Test Item Value Reference Range Interpretation Comments PHOSPHORUS (BEAKER) (test code = 3.8 mg/dL 2.3-4.7 604) Flasher Adjuster ID - KAYLEEN BASILIOASIC METABOLIC [id number] 07:23:38 Test Item Value Reference Range Interpretation [...] 697) EGFR (BEAKER) (test 75 mL/min/1.73 ESTIMA DNATE GFR IS code = 1092) sq m NOT ACCURATE CREATININE CLEARANCE IN PREDICTING GLOMERULAR FILTRATION RATE . ESTIMATED GFR I S NOT APPLICABLE FOR DIALYSIS PATIEN TS. Flasher Adjuster ID - KAYLEEN LTSH/Free T4 If Vwcriyhab6480-38-16 06:55:05 Test Item Value Reference Range Interpretation Comments TSH (test code = 1.112 See_Comment [Automated 78236-6) message] The system which generated this result transmit dante reference range : 0.350 - 4.940 uIU/mL. The reference range was not used to interpret this result as normal/abnormal . EMERSON (test code = EMERSON) Flasher Adjuster ID - KAYLEEN L Lab Interpretation Normal (test code = 85704-7) [facility]Free T4 If Ojehggbea9933-25-06 06:55:05 Test Item Value Reference Range Interpretation Comments TSH (test code = 1.112 See_Comment [Automated 16316-3) message] The system which generated this result transmit dante reference range : 0.350 - 4.940 uIU/mL. The reference range was not used to interpret this result as normal/abnormal . EMERSON (test code = EMERSON) Flasher Adjuster ID - KAYLEEN L Lab Interpretation Normal (test code = 97342-8) [facility] HospitalTSH/Free T4 If Wmxphvrov0243-95-44 06:55:05 Test Item Value Reference Range Interpretation Comments TSH (test code = 1.112 See_Comment [Automated 21593-4) message] The system which generated this result transmit dante reference range : 0.350 - 4.940 uIU/mL. The reference range was not used to interpret this result as normal/abnormal . EMERSON (test code = EMERSON) Flasher Adjuster ID - KAYLEEN L Lab Interpretation Normal (test code = 64999-5) [facility] HospitalTS/FREE T4 IF [id number] 06:55:05 Test Item Value Reference Range Interpretation Comments THYROID STIMULATING HORMONE 1.112 uIU/mL 0.350-4.940 (BEAKER) (test code = 772) Flasher Adjuster ID - KAYLEEN LPROTHROMBIN TIME/[id number] 06:24:18 Test Item Value Reference Range Interpretation Comments PROTIME (BEAKER) 17.9 seconds 11.9-14.2 H (test code = 759) INR (BEAKER) (test 1.51 See_Comment [Automat ed message] code = 370) The system [employer] h generated this result transmitted ref erence range: <=5.90. The reference range was not used to int erpret this result as normal/abnormal . RECOMMENDED COUMADIN/WARFARIN INR THERAPY RANGESSTANDARD DOSE: 2.0 - 3.0 Includes: PROPHYLAXIS for venous thrombosis, systemic embolization; TREATMENT for venous thrombosis and/or pulmonary embolus.HIGH RISK: Target INR is 2.5-3.5 for patients with mechanical heart valves.CBC W/PLT COUNT & AUTO [id number] 06:22:43 Test Item Value Reference Range Interpretation [...] SARS-Co V-2 (test code = target nucleic 76535-5) acids are not detected in thi s [...] revoked sooner. Fact Sheet for Healthcare Providers: https://www.[employer]etingmix.com/Documents/Xp ert%20Xpress%20SAR S%20CoV-2/Fact%20S heets/302-3802%20S ARS-COV-2%20HEALTH CARE%20PROVIDERS%2 0FACT%20SHEET.pdf Fact Sheet for Healthcare Patients: https://www.[employer]eting[employer].com/Documents/Xp ert%20Xpress%20SAR S%20CoV-2/Fact%20S heets/302-3801%20S ARS-COV-2%20PATIEN T%20FACT%20SHEET.p df Lab Interpretation Normal (test code = 12814-5) [facility]ptomatic ONLY)2021-08-31 15:45:18 Test Item Value Reference Interpretation Comments Range SARS-COV2/RT-PCR Negative Negative The SARS-Co V-2 (test code = target nucleic 58261-3) acids are not detected in thi s [...] om SARS-CoV-2 in a nasopharyngeal swab specimen [facility] from individual s suspected of COVID-19 by [...] revoked sooner. Fact Sheet for Healthcare Providers: https://www.[employer]etingmix.com/Documents/Xp ert%20Xpress%20SAR S%20CoV-2/Fact%20S heets/302-3802%20S ARS-COV-2%20HEALTH CARE%20PROVIDERS%2 0FACT%20SHEET.pdf Fact Sheet for Healthcare Patients: https://www.[employer]eting[employer].com/Documents/Xp ert%20Xpress%20SAR S%20CoV-2/Fact%20S heets/302-3801%20S ARS-COV-2%20PATIEN T%20FACT%20SHEET.p df Lab Interpretation Normal (test code = 44916-7) [facility] (Symptomatic ONLY)2021-08-31 15:45:18 Test Item Value Reference Interpretation Comments Range SARS-COV2/RT-PCR Negative Negative The SARS-Co V-2 (test code = target nucleic 61074-2) acids are not detected in thi s [...] revoked sooner. Fact Sheet for Healthcare Providers: https://www.Meetingmix.com/Documents/Xp ert%20Xpress%20SAR S%20CoV-2/Fact%20S heets/302-3802%20S ARS-COV-2%20HEALTH CARE%20PROVIDERS%2 0FACT%20SHEET.pdf Fact Sheet for Healthcare Patients: https://www.Meetingmix.com/Documents/Xp ert%20Xpress%20SAR S%20CoV-2/Fact%20S heets/302-3801%20S ARS-COV-2%20PATIEN T%20FACT%20SHEET.p df Lab Interpretation Normal (test code = 85346-8) [facility]OV[facility] ([facility])2021-08-31 15:45:18 Test Item Value Reference Range Interpretation Comments SARS-COV2/RT-PCR Negative Negative The SARS-Co V-2 target (test code = nucleic acids a re not 9757654) detected in thi s specimen. Negative result [...] individuals suspected of CO VID-19 by their [facility] provider. This test has been authorized [...] revoked sooner. Fact Sheet for Healthcare Providers: https://www.[employer]/Documents/Xpert%20Xpress%20SARS%20CoV-2/Fact%20Sheets/302-3802%30EQYG-EMD-4%2 0HEALTHCARE%20PROVIDERS%20FACT%20SHEET.pdf Fact Sheet for Healthcare Patients: https://www.[employer]/Documents/Xpert%20X press%20SARS%20CoV-2/Fact%20Sheets/3023801%87COIP-KJT-1%20PATIENT%20FACT%20SHEE T.pdfHIGH SENSITIVITY TROPONIN [id number] 13:23:34 Test Item Value Reference Range Interpretation Comments HIGH SENSITIVITY 10 pg/ml See_Comment [Automated message] TROPONIN I (test code = The system which [id number]) generated this result transmitted ref erence range: <=35. Th e reference range was not used to int erpret this result as normal/abnormal . Flasher Adjuster ID - ADMINThe BEARING GRINDER STAT High Sensitivity Troponin-I results should be used in conjunction with other diagnostic information such as ECG, clinical observations and information, and patientsymptoms to aid in the diagnosis of [place]. [id number] 13:16:30 Test Item Value Reference Range Interpretation Comments PARTIAL THROMBOPLASTIN TIME 41.6 seconds 22.5-36.0 H (BEAKER) (test code = 760) BASIC METABOLIC [id number] 13:16:09 Test Item Value Reference Range Interpretation [...] S NOT APPLICABLE FOR DIALYSIS PATIEN TS. Flasher Adjuster ID - ADMINPROTHROMBIN TIME/[id number] 13:15:51 Test Item Value Reference Range Interpretation Comments PROTIME (BEAKER) 21.2 seconds 11.9-14.2 H (test code = 759) INR (BEAKER) (test 1.86 See_Comment [Automat ed message] code = 370) The system [employer] generated this result transmitted ref erence range: <=5.90. The reference range was not used to int erpret this result as normal/abnormal . RECOMMENDED COUMADIN/WARFARIN INR THERAPY RANGESSTANDARD DOSE: 2.0 - 3.0 Includes: PROPHYLAXIS for venous thrombosis, systemic embolization; TREATMENT for venous thrombosis and/or pulmonary embolus.HIGH RISK: Target INR is 2.5-3.5 for patients with mechanical heart valves.LACTIC ACID, [id number] 13:12:46 Test Item Value Reference Range Interpretation Comments LACTATE BLOOD VENOUS (2) (BEAKER) 1.73 mmol/L 0.50-2.20 (test code = 2872) Flasher Adjuster ID - ADMINCBC W/PLT COUNT & AUTO [id number] 12:54:05 Test Item Value Reference Range Interpretation [...] PERCENT (BEAKER) (test code = 2801) FL, TVBKGYEWX7662-78-77 11:34:00Gastrografin studyReason for exam:->POST-OP PROBLEMpost endocscopy 1 month ago [facility] 1945 [...] [place] Verified Date/Time: 07/04/2021 11:34:49 Reading Location: [address] Ortho Consult Reading Room BASIC METABOLIC [id number] 04:39:36 Test Item Value Reference Range Interpretation [...] S NOT APPLICABLE FOR DIALYSIS PATIEN TS. Flasher Adjuster ID - MARZENA MSARS-COV2/RT-PCR ([facility])2021-07-03 17:50:45 Test Item Value Reference Range Interpretation Comments SARS-COV2/RT-PCR Negative Negative The SARS-Co V-2 target (test code = nucleic acids a re not 4866453) detected in thi s specimen. Negative result [...] revoked sooner. Fact Sheet for Healthcare Providers: https://www.[employer].co m/Documents/Xpert%20Xpress%20SARS%20CoV-2/Fact%20Sheets/049-3802%91GQNS-SHK-3%20 HEALTHCARE%20PROVIDERS%20FACT%20SHEET.pdf Fact Sheet for Healthcare Patients: https://www.[employer]/Documents/Xpert%20Xp ress%20SARS%20CoV-2/Fact%20Sheets/680-3801%00VHSI-NDF-8%20PATIENT%20FACT%20SHEET .pdfD-dimer, hrjlzluiffbm1414-27-56 17:04:25 Test Item Value Reference Range Interpretation Comments D-Dimer, Quant (test <0.27 See_Comment [Autom ated code = 64486-6) message] The system which generated this result [...] range. Lab Interpretation Normal (test code = 21845-1) [facility] HospitalD-[facility]er, yczawdqxvffc5783-52-10 17:04:25 Test Item Value Reference Range Interpretation Comments D-Dimer, Quant (test <0.27 See_Comment [Autom ated code = 75109-8) message] The system which generated this result [...] range. Lab Interpretation Normal (test code = 04284-4) [facility] HospitalD-[id number] 17:04:25 Test Item Value Reference Range Interpretation [...] of thrombosis is within 95-100% range.BLOOD GAS, [id number] 16:22:57 Test Item Value Reference Range Interpretation [...] code = 1819) 21.0 RAD, CHEST, 2 PHZRR6743-02-00 14:40:00Reason for exam:->CHEST PAIN since endoscopy a month [facility]ocsc[facility] 1 [facility] 1945 Sex: MFINAL REPORT EXAM: Chest one view COMPARISON: May 15, 2021 CLINICAL HISTORY: Chest pain FINDINGS: Minimal blunting of bilateral posterior costophrenic sulci are noted which may represent small effusions. The cardiac size remains enlarged. There is no evidence of pulmonary consolidation or pneumothorax. The regional osseous structures are unremarkable. Signed: Romeo Ackerman Verified Date/Time: 07/03/2021 14:40:03 [id number] 14:12:25 Test Item Value Reference Range Interpretation Comments Lipase (test code = 3040-3) 22 U/L 8-78 EMERSON (test code = EMERSON) Flasher Adjuster ID - DB Lab Interpretation (test Normal code = 58783-1) [facility] HospitalLipase2021-[facility] 14:12:25 Test Item Value Reference Range Interpretation Comments Lipase (test code = 3040-3) 22 U/L 8-78 EMERSON (test code = EMERSON) Flasher Adjuster ID - DB Lab Interpretation (test Normal code = 35746-4) [facility] HospitalLIPASE2021-[facility]-15 14:12:25 Test Item Value Reference Range Interpretation Comments LIPASE (BEAKER) (test code = 749) 22 U/L 8-78 Flasher Adjuster ID - DBCOMPREHENSIVE METABOLIC [id number] 14:12:24 Test Item Value Reference Range Interpretation [...] S NOT APPLICABLE FOR DIALYSIS PATIEN TS. Flasher Adjuster ID - DBHIGH SENSITIVITY TROPONIN [id number] 14:10:43 Test Item Value Reference Range Interpretation Comments HIGH SENSITIVITY 7 pg/ml See_Comment [Automated message] TROPONIN I (test code = The system which [id number]) generated this result transmitted ref erence range: <=35. Th e reference range was not used to interpr et this result as normal/abnormal . Flasher Adjuster ID - RMThe BEARING GRINDER STAT High Sensitivity Troponin-I results should be used in conjunctionwith other diagnostic information such as ECG, clinical observations and information, and patient symptoms to aid in the diagnosis of [place].B-TYPE NATRIURETIC FACTOR (BNP)2021-07-03 14:09:26 Test Item Value Reference Range Interpretation Comments B-TYPE NATRIURETIC PEPTIDE (BEAKER) 515 pg/mL 0-100 H (test code = 700) Flasher Adjuster ID - RMCBC W/PLT COUNT & AUTO [id number] 13:39:07 Test Item Value Reference Range Interpretation [...] (BEAKER) (test code = 2801) HEMOGLOBIN AND [id number] 05:07:16 Test Item Value Reference Range Interpretation Comments HEMOGLOBIN (BEAKER) (test code = 7.9 GM/DL 13.7-17.5 L 410) HEMATOCRIT (BEAKER) (test code = 26.4 % 40.1-51.0 L 411) Flasher Adjuster ID - 6000HEMOGLOBIN AND [id number] 18:44:57 Test Item Value Reference Range Interpretation Comments HEMOGLOBIN (BEAKER) (test code = 8.7 GM/DL 13.7-17.5 L 410) HEMATOCRIT (BEAKER) (test code = 29.7 % 40.1-51.0 L 411) Flasher Adjuster ID - 6000HEMOGLOBIN AND [id number] 11:29:37 Test Item Value Reference Range Interpretation Comments HEMOGLOBIN (BEAKER) (test code = 8.3 GM/DL 13.7-17.5 L 410) HEMATOCRIT (BEAKER) (test code = 28.5 % 40.1-51.0 L 411) Flasher Adjuster ID - 6000HEMOGLOBIN AND YDCKCEFJYJ6828-06-00 04:51:37 Test Item Value Reference Range Interpretation Comments HEMOGLOBIN (BEAKER) (test code = 7.9 GM/DL 13.7-17.5 L 410) HEMATOCRIT (BEAKER) (test code = 26.9 % 40.1-51.0 L 411) Flasher Adjuster ID - [id number] AND [id number] 16:42:26 Test Item Value Reference Range Interpretation Comments HEMOGLOBIN (BEAKER) (test code = 8.6 GM/DL 13.7-17.5 L 410) HEMATOCRIT (BEAKER) (test code = 29.4 % 40.1-51.0 L 411) Flasher Adjuster ID - 6000BASIC METABOLIC TBPVP7445-09-93 09:04:40 Test Item Value Reference Range Interpretation [...] S NOT APPLICABLE FOR DIALYSIS PATIEN TS. Flasher Adjuster ID - ROSIANGHEMOGLOBIN AND VARECPTQOA1917-41-96 08:41:52 Test Item Value Reference Range Interpretation Comments HEMOGLOBIN (BEAKER) (test code = 7.6 GM/DL 13.7-17.5 L 410) HEMATOCRIT (BEAKER) (test code = 26.5 % 40.1-51.0 L 411) Flasher Adjuster ID - 6000SARS-COV2/RT-PCR ([facility])2021-05-23 19:59:55 Test Item Value Reference Range Interpretation Comments SARS-COV2/RT-PCR Negative Negative The SARS-Co V-2 target (test code = nucleic acids a re not [id number]) detected in thi s specimen. Negative result [...] revoked sooner. Fact Sheet for Healthcare Providers: https://www.[employer].co m/Documents/Xpert%20Xpress%20SARS%20CoV-2/Fact%20Sheets/031-6542%90MPKJ-TVN-6%20 HEALTHCARE%20PROVIDERS%20FACT%20SHEET.pdf Fact Sheet for Healthcare Patients: https://www.[employer]/Documents/Xpert%20Xp ress%20SARS%20CoV-2/Fact%20Sheets/302-5431%61ZSXB-LIY-6%20PATIENT%20FACT%20SHEET .pdfCOMPREHENSIVE METABOLIC [id number] 17:17:21 Test Item Value Reference Range Interpretation [...] S NOT APPLICABLE FOR DIALYSIS PATIEN TS. Flasher Adjuster ID - LUDA [id number] 17:17:21 Test Item Value Reference Range Interpretation Comments LIPASE (BEAKER) (test code = 749) 31 U/L 8-78 Flasher Adjuster ID - LUDA FPT/[id number] 16:55:15 Test Item Value Reference Range Interpretation [...] mechanical heart valves.CBC W/PLT COUNT & AUTO [id number] 16:37:06 Test Item Value Reference Range Interpretation [...] (BEAKER) (test code = 2801) BASIC METABOLIC [id number] 04:38:30 Test Item Value Reference Range Interpretation [...] S NOT APPLICABLE FOR DIALYSIS PATIEN TS. Flasher Adjuster ID - DBCBC W/PLT COUNT & AUTO [id number] 04:21:40 Test Item Value Reference Range Interpretation [...] (BEAKER) (test code = 2801) BASIC METABOLIC [id number] 07:03:04 Test Item Value Reference Range Interpretation [...] S NOT APPLICABLE FOR DIALYSIS PATIEN TS. Flasher Adjuster ID - PIAYA LCBC (HEMOGRAM ONLY)2021-05-17 04:38:47 [...] (BEAKER) (test code = 413) HEMOGLOBIN AND [id number] 20:18:40 Test Item Value Reference Range Interpretation Comments HEMOGLOBIN (BEAKER) (test code = 7.7 GM/DL 13.7-17.5 L 410) HEMATOCRIT (BEAKER) (test code = 25.7 % 40.1-51.0 L 411) Flasher Adjuster ID - 6000BASIC METABOLIC [id number] 06:32:43 Test Item Value Reference Range Interpretation [...] S NOT APPLICABLE FOR DIALYSIS PATIEN TS. Flasher Adjuster ID - MARZENA MCBC W/PLT COUNT & AUTO [id number] 06:09:12 Test Item Value Reference Range Interpretation [...] (BEAKER) (test code = 2801) HEMOGLOBIN AND [id number] 00:13:44 Test Item Value Reference Range Interpretation Comments HEMOGLOBIN (BEAKER) (test code = 8.0 GM/DL 13.7-17.5 L 410) HEMATOCRIT (BEAKER) (test code = 28.1 % 40.1-51.0 L 411) Flasher Adjuster ID - 6000SARS-COV2/RT-PCR ([facility])2021-05-15 18:07:21 Test Item Value Reference Range Interpretation Comments SARS-COV2/RT-PCR Negative Negative The SARS-Co V-2 target (test code = nucleic acids a re not [id number]) detected in thi s specimen. Negative result [...] individuals suspected of CO VID-19 by their [facility] provider. This test has been authorized [...] revoked sooner. Fact Sheet for Healthcare Providers: https://www.[employer]/Documents/Xpert%20Xpress%20SARS%20CoV-2/Fact%20Sheets/3023802%66RCLE-MJD-5%20 HEALTHCARE%20PROVIDERS%20FACT%20SHEET.pdf Fact Sheet for Healthcare Patients: https://www.[employer]/Documents/Xpert%20Xp ress%20SARS%20CoV-2/Fact%20Sheets/3023801%12ZBOZ-RLO-5%20PATIENT%20FACT%20SHEET .pdfHIGH SENSITIVITY TROPONIN [id number] 15:44:19 Test Item Value Reference Range Interpretation Comments HIGH SENSITIVITY 6 pg/ml See_Comment [Automated message] TROPONIN I (test code = The system which [id number]) generated this result transmitted ref erence range: <=35. Th e reference range was not used to interpr et this result as normal/abnormal . Flasher Adjuster ID - DBThe BEARING GRINDER STAT High Sensitivity Troponin-I results should be used in conjunctionwith other diagnostic information such as ECG, clinical observations and information, and patient symptoms to aid in the diagnosis of [place].[id number] 15:36:53 Test Item Value Reference Range Interpretation Comments MAGNESIUM (BEAKER) (test code = 2.1 mg/dL 1.6-2.6 627) Flasher Adjuster ID - [id number] 15:36:53 Test Item Value Reference Range Interpretation Comments PHOSPHORUS (BEAKER) (test code = 3.3 mg/dL 2.3-4.7 604) Flasher Adjuster ID - DBCOMPREHENSIVE METABOLIC [id number] 15:36:52 Test Item Value Reference Range Interpretation [...] S NOT APPLICABLE FOR DIALYSIS PATIEN TS. Flasher Adjuster ID - DBCBC W/PLT COUNT & AUTO [id number] 15:12:30 Test Item Value Reference Range Interpretation [...] = 2801) RAD, CHEST, 1 VIEW, NON [id number] 13:55:00Reason for exam:->MELENAReason for exam:->GENERAL ILLNESSReason for exam:->GENERALIZED WEAKNESS, NOT ASSOCIATED WITH EXTREMITIESShould this be performed at the bedside?->Yes [facility] 1945 Sex: MFINAL REPORT INDICATION: MELENAGENERAL ILLNESSGENERALIZED WEAKNESS, NOT ASSOCIATED WITH EXTREMITIES COMPARISON: 05/01/2021 TECHNIQUE: Single frontal view of the chest. FINDINGS: Lungs and pleura: Clear lungs. No effusion.Heart and mediastinum: Normal heart size. Unremarkable mediastinal contours.Osseous structures: No acute abnormality.Other: None. IMPRESSION: No acute intrathoracic abnormality. Signed: Gaby Cordero MDReport Verified Date/Time: 05/15/2021 13:55:04 [facility] MAGNESIUM 2021-05-10 07:19:33 Test Item Value Reference Range Interpretation Comments MAGNESIUM (BEAKER) (test code = 2.4 mg/dL 1.6-2.6 627) Flasher Adjuster ID - PIAYA LBASIC METABOLIC [id number] 07:19:32 Test Item Value Reference Range Interpretation [...] S NOT APPLICABLE FOR DIALYSIS PATIEN TS. Flasher Adjuster ID - PIAYA LCBC W/PLT COUNT & AUTO [id number] 06:34:22 Test Item Value Reference Range Interpretation [...] (test code = 2801) UREA NITROGEN, RANDOM [id number] 17:46:02 Test Item Value Reference Range Interpretation Comments UREA NITROGEN URINE (BEAKER) (test 404 mg/dL code = 538) Reference Range: No NormalsOperator ID - BSSODIUM, RANDOM [id number] 17:46:01 Test Item Value Reference Range Interpretation Comments SODIUM URINE (BEAKER) (test code = 101 meq/L 243) Reference Range: No NormalsOperator ID - BSCREATININE, RANDOM [id number] 17:46:00 Test Item Value Reference Range Interpretation Comments CREATININE URINE (BEAKER) (test 61.7 mg/dL code = 375) Reference Range: No NormalsOperator ID - BSURINALYSIS WITH MICROSCOPIC IF [id number] 16:41:11 Test Item Value Reference Range Interpretation [...] = 463) SOURCE(BEAKER) (test code = 2795) Flasher Adjuster ID - [auto]BLOOD [id number] 11:01:01 Test Item Value Reference Range Interpretation Comments CULTURE (BEAKER) (test No growth in 5 days code = 1095) BLOOD [id number] 11:01:01 Test Item Value Reference Range Interpretation Comments CULTURE (BEAKER) (test No growth in 5 days code = 1095) The specimen volume collected for this blood culture was below the optimum (10 mL per bottle or 20 mL total). Use of lower volumes may adversely affect recovery and/or detection times of some organisms.[id number] 05:38:27 Test Item Value Reference Range Interpretation Comments MAGNESIUM (BEAKER) (test code = 2.3 mg/dL 1.6-2.6 627) Flasher Adjuster ID - PIAYA LBASIC METABOLIC [id number] 05:38:26 Test Item Value Reference Range Interpretation [...] S NOT APPLICABLE FOR DIALYSIS PATIEN TS. Flasher Adjuster ID - PIAYA LPROTHROMBIN TIME/[id number] 05:23:25 Test Item Value Reference Range Interpretation Comments PROTIME (BEAKER) 16.9 seconds 11.9-14.2 H (test code = 759) INR (BEAKER) (test 1.39 See_Comment [Automat ed message] code = 370) The system [employer] generated this result transmitted ref erence range: <=5.90. The reference range was not used to int erpret this result as normal/abnormal . RECOMMENDED COUMADIN/WARFARIN INR THERAPY RANGESSTANDARD DOSE: 2.0 - 3.0 Includes: PROPHYLAXIS for venous thrombosis, systemic embolization; TREATMENT for venous thrombosis and/or pulmonary embolus.HIGH RISK: Target INR is 2.5-3.5 for patients with mechanical heart valves.CBC W/PLT COUNT & AUTO [id number] 05:22:39 Test Item Value Reference Range Interpretation [...] (BEAKER) (test code = 2801) COMPREHENSIVE METABOLIC [id number] 16:17:38 Test Item Value Reference Range Interpretation [...] S NOT APPLICABLE FOR DIALYSIS PATIEN TS. Flasher Adjuster ID - DBSARS-COV2/RT-PCR ([facility])2021-05-08 12:32:16 Test Item Value Reference Range Interpretation Comments SARS-COV2/RT-PCR (test Negative Not Detected, Negative, code = 6543403) See external report for linked test SARS-COV-2 PERFORMING LAB [facility] (test code = 9128680) Negative result for this test determines that [...] of the Act.Fact Sheet for Healthcare Prov iders:https://www.[employer]/sites/default/files/product/documents/Fact_Sheet_HC _Kcpqrimlw_Yftu_BONA-FrV-8.pdfFact Sheet for Healthcare Patients:https://www.[employer]/sites/default/files/product/docume nts/Thuq_Ndadz_Myudpofv_Dbvi_PJKX-InG-3.pdfPerforming Laboratory:[address] [place], [place] [address]IXZ (HEMOGRAM ONLY) 2021-05-08 06:41:47 Test Item Value [...] code = 413) MYOCARD IMAGING, MULTI, PHARM, [id number] 13:41:00Unlisted Reason for Exam - Click Yes and Enter Reason Below->No [facility] : 1945 Sex: MFINAL REPORT PROCEDURE: Rest/Stress MYOCARDIAL PERFUSION SPECT with regadenoson\\XA9\\ CPT CODE: 69224 INDICATION: Chest pain PROTOCOL: 10.6 mCi of [...] 4. No prior study. Signed: Ishmael Collado [facility] Verified Date/Time: 05/07/2021 13:41:19 CBC (HEMOGRAM ONLY) [...] (BEAKER) (test code = 413) BASIC METABOLIC [id number] 06:10:10 Test Item Value Reference Range Interpretation [...] S NOT APPLICABLE FOR DIALYSIS PATIEN TS. Flasher Adjuster ID - SHANE [facility] (HEMOGRAM ONLY)2021-05-06 05:35:30 Test Item Value Reference [...] 0-0 H (BEAKER) (test code = 413) [id number] 17:04:33 Test Item Value Reference Range Interpretation Comments PARTIAL THROMBOPLASTIN TIME 75.5 seconds 22.5-36.0 H (BEAKER) (test code = 760) [id number] 08:48:29 Test Item Value Reference Range Interpretation Comments PARTIAL THROMBOPLASTIN TIME 39.1 seconds 22.5-36.0 H (BEAKER) (test code = 760) [id number] 07:02:01 Test Item Value Reference Range Interpretation [...] (BEAKER) (test code = 413) BASIC METABOLIC [id number] 06:36:45 Test Item Value Reference Range Interpretation [...] S NOT APPLICABLE FOR DIALYSIS PATIEN TS. Flasher Adjuster ID - SHANE [id number] 22:11:03 Test Item Value Reference Range Interpretation Comments PARTIAL THROMBOPLASTIN TIME 88.2 seconds 22.5-36.0 H (BEAKER) (test code = 760) PERIPHERAL BLOOD SMEAR - PATHOLOGIST [id number] 18:22:51 Test Item Value Reference Range Interpretation Comments PERIPHERAL SMR Microcytic hypochromic REVIEW (BEAKER) anemia with marked (test code = 2640) anisopoikilocytosis and polychromasia, consistent with history of LEESA. Leukocytosis with predominantly mature granulocytes. No blasts seen. Adequate platelets with unremarkable morphology. [id number] Andreina Schmidt, 112 (BEAKER) (test M.D code [...] (BEAKER) (test code 2+ moderate = 966) [id number] 12:13:05 Test Item Value Reference Range Interpretation Comments PARTIAL THROMBOPLASTIN TIME 55.6 seconds 22.5-36.0 H (BEAKER) (test code = 760) TISSUE [id number] 11:53:42Surgical Pathology Report Case: [id number] Authorizing Provider: Yolanda Lyle MD Collected: 05/03/2021 10:38 AM Ordering Location: [address] Received: 05/03/2021 02:25 PM Service Pathologist: Ciro Diamond MD Specimen: Polyp, Colon - Right/Ascending, x3 PART A RIGHT ASCENDING COLON POLYPX3, POLYPECTOMY:TUBULAR ADENOMA Signing Pathologist Direct Phone Line: [phone] signed by Ciro Diamond MD on 05/04/2021 at 11:53 [id number] colonReceived in formalin labeled the patient's name, accession number and "ascending colon polyp" are multiple chavez soft tissue fragments measuring up to 0.5 cm in greatest dimension which are filtered and submitted in toto in A1.URSULA Martell, HT (ASCP)performedBaylOroville Hospital, Department of Pathology, [address] [place] [address], [facility], [facility] of [facility]ology, [address] [place] [address], DjysnwMiller [facility], Department of Pathology, [address] [place] [address], [id number] 11:13:03 Test Item Value Reference Range Interpretation Comments PARTIAL THROMBOPLASTIN TIME > seconds 22.5-36.0 HH (BEAKER) (test code = 760) URINALYSIS [id number] 10:30:34 Test Item Value Reference Range Interpretation Comments RBC UA (BEAKER) (test code = 519) 3 /HPF WBC UA (BEAKER) (test code = 520) 2 /HPF BACTERIA (BEAKER) (test code = None Seen 517) MUCUS (BEAKER) (test code = 1574) Moderate CRYSTALS, URINE (BEAKER) (test None Seen code = 1521) AMORPHOUS CRYSTALS (BEAKER) (test Occasional code = 1584) Flasher Adjuster ID - techURINALYSIS WITH MICROSCOPIC IF [id number] 10:23:22 Test Item Value Reference Range Interpretation [...] = 463) SOURCE(BEAKER) (test code = 2795) Flasher Adjuster ID - [auto]BASIC METABOLIC [id number] 06:55:55 Test Item Value Reference Range Interpretation [...] S NOT APPLICABLE FOR DIALYSIS PATIEN TS. Flasher Adjuster ID - SHANE GCBC (HEMOGRAM ONLY)2021-05-04 06:35:01 [...] 0-0 (BEAKER) (test code = 413) BLOOD [id number] 18:01:00 Test Item Value Reference Range Interpretation Comments CULTURE (BEAKER) (test No growth in 5 days code = 1095) BLOOD [id number] 18:00:59 Test Item Value Reference Range Interpretation Comments CULTURE (BEAKER) (test No growth in 5 days code = 1095) TISSUE [id number] 17:23:09Surgical Pathology Report Case: [id number] Authorizing Provider: Yolanda Lyle MD Collected: 05/02/2021 03:08 PM Ordering Location: [address] Received: 05/03/2021 09:22 AM Service Pathologist: Cior Diamond MD Specimens: A) - Duodenum, r/o [...] WITH FOCAL INTESTINAL (GOBLET CELL) METAPLASIA.NEGATIVE FOR DYSPLASIAOR INVASIVE CARCINOMA. Signing Pathologist Direct Phone Line: [phone] signed by Ciro Diamond MD on 05/03/2021 at 5:23 [id number], [id number] iron deficiency anemiaA. Duoden um tissue, rule out celiacB. Biopsy, gastric tissueC. [...] ranging each measuring 0.1 cm in greatest dimen ciera. The specimen is submitted in toto following [...] evaluated Immunohistochemistry technical testing was performed at [facility], Pathology Laboratory where it was developed and its performance characteristics were determined. It has not been cleared or approved by the U.S. Food and Drug Administration. The FDA has determined that such clearance or approval isnot necessary. The test is used for clinical purposes. It should not be regarded as investigational or for research. This laboratory is certified under the Clinical Laboratory Improvement Amendments of 1988 (CLIA-88) as qualified to perform high complexity clinical laboratory testing.[facility], Department of Pathology, [address] [place], [place] [address], [facility], Department of Pathology, [address] [place] [address], Tel [phone] Children's [facility], Department of Pathology, [address] [place] [address], EYPMD METABOLIC PANEL 2021-05-03 06:21:43 Test Item Value [...] S NOT APPLICABLE FOR DIALYSIS PATIEN TS. Flasher Adjuster ID - MARZENA MTSH/FREE T4 IF [id number] 05:55:30 Test Item Value Reference Range Interpretation Comments THYROID STIMULATING HORMONE 0.869 uIU/mL 0.350-4.940 (BEAKER) (test code = 772) Flasher Adjuster ID - MARZENA MB-TYPE NATRIURETIC FACTOR (BNP)2021-05-03 05:32:14 Test Item Value Reference Range Interpretation Comments B-TYPE NATRIURETIC PEPTIDE (BEAKER) 452 pg/mL 0-100 H (test code = 700) Flasher Adjuster ID - MARZENA MCBC (HEMOGRAM ONLY)2021-05-03 05:22:14 [...] CONCENTRATION Adequate (CELLAVISION)(BEAKER) (test code = 3438) Flasher Adjuster ID - Luca Perry comments: Slide comments:CBC W/PLT COUNT & AUTO [id number] 11:59:17 Test Item Value Reference Range Interpretation [...] (BEAKER) (test code = 413) BASIC METABOLIC [id number] 09:20:42 Test Item Value Reference Range Interpretation [...] S NOT APPLICABLE FOR DIALYSIS PATIEN TS. Flasher Adjuster LOBITO SARAH WPT/[id number] 09:05:40 Test Item Value Reference Range Interpretation [...] 2.5-3.5 for patients with mechanical heart valves.SARS-COV2/RT-PCR ([facility]) 2021-05-01 12:34:25 Test Item Value Reference Range Interpretation Comments SARS-COV2/RT-PCR (test Negative Not Detected, Negative, code = 1988648) See external report for linked test SARS-COV-2 PERFORMING LAB [facility] (test code = 5007027) Negative result for this test determines that [...] of the Act.Fact Sheet for Healthcare Prov iders:https://www.[employer]/sites/default/files/product/documents/Fact_Sheet_HC _Eumsgedkf_Mfzx_KDOL-TbG-9.pdfFact Sheet for Healthcare Patients:https://www.[employer]/sites/default/files/product/docume nts/Tjnv_Mptzs_Cpdtqgbu_Vhic_WVMN-EaS-7.pdfPerforming Laboratory:[facility], [place] [address]IZX, CHEST, 1 VIEW, NON [id number] 09:29:00Reason for exam:->shortness of breathShould this be performed at the bedside?->Yes [facility] 1945 Sex: MFINAL REPORT Chest AP portable History provided: Shortness of breath Heart size magnified by projection. Lungs are clear and vascularity normal. Signed: Reji Jeffers Verified Date/Time: 05/01/2021 09:29:27 Reading Location: [facility] Radiology Reading Room [facility] ([facility] ONLY)2021-05-01 06:54:20 Test Item Value Reference [...] (BEAKER) (test code = 413) BASIC METABOLIC [id number] 06:24:43 Test Item Value Reference Range Interpretation [...] S NOT APPLICABLE FOR DIALYSIS PATIEN TS. Flasher Adjuster ID - PIAYA LBASIC METABOLIC [id number] 15:17:17 Test Item Value Reference Range Interpretation [...] S NOT APPLICABLE FOR DIALYSIS PATIEN TS. Flasher Adjuster ID - DBCBC W/PLT COUNT & AUTO [id number] 14:42:15 Test Item Value Reference Range Interpretation [...] (BEAKER) (test code = 2801) HEMOGLOBIN AND [id number] 14:41:31 Test Item Value Reference Range Interpretation Comments HEMOGLOBIN (BEAKER) (test code = 9.7 GM/DL 13.7-17.5 L 410) HEMATOCRIT (BEAKER) (test code = 33.4 % 40.1-51.0 L 411) Flasher Adjuster ID - 6000CT, [id number] 02:24:00Unlisted Reason for Exam - Click Yes and Enter Reason Below->NoWill this procedure require oral co ntrast?->[facility] : 1945 Sex: MFINAL REPORT EXAM: CT of the abdomen and pelvis, with contrast CLINICAL HISTORY: Abdominal distention. TECHNIQUE: CT of the abdomen and pelvis was performed with intravenous contrast administration. This exam was performed according to our departmental dose optimization program which includes automated exposure control, adjustment of the mA and/or kV according to patient's size an d/or use of iterative reconstructive technique. COMPARISON: None FINDINGS: LOWER CHEST: Mild bilateral lower lobe dependent atelectasis.HEPATOBILIARY: Layering sludge in the gallbladder. No focal liverlesions. No biliary duct dilatation.PANCREAS: Within normal limits.SPLEEN: [...] nonobstructing left renal stone. Signed: Aman Todd [facility] Verified Date/Time: 04/30/2021 02:24:34 HEMOGLOBIN [id number] 09:35:28 Test Item Value Reference Range Interpretation Comments HEMOGLOBIN A1C (BEAKER) (test code = 6.6 % 4.3-6.1 H 368) HEPATIC FUNCTION [id number] 05:59:52 Test Item Value Reference Range Interpretation [...] (test code = 38 U/L 6-55 347) Flasher Adjuster ID - MARZENA [id number] 05:59:50 Test Item Value Reference Range Interpretation Comments MAGNESIUM (BEAKER) (test code = 2.9 mg/dL 1.6-2.6 H 627) Flasher Adjuster ID - MARZENA MLIPID [id number] 05:59:50 Test Item Value Reference Range Interpretation [...] Borderline 130-159 High 160-189 Very High >=190 Flasher Adjuster ID - MARZENA MBASIC METABOLIC [id number] 05:59:49 Test Item Value Reference Range Interpretation [...] S NOT APPLICABLE FOR DIALYSIS PATIEN TS. Flasher Adjuster ID - MARZENA MB-TYPE NATRIURETIC FACTOR (BNP)2021-04-29 05:49:20 Test Item Value Reference Range Interpretation Comments B-TYPE NATRIURETIC PEPTIDE (BEAKER) 329 pg/mL 0-100 H (test code = 700) Flasher Adjuster ID - DBPROTHROMBIN TIME/[id number] 05:43:23 Test Item Value Reference Range Interpretation Comments PROTIME (BEAKER) 15.3 seconds 11.9-14.2 H (test code = 759) INR (BEAKER) (test 1.23 See_Comment [Automat ed message] code = 370) The system Autospr[employer] generated this result transmitted ref erence range: <=5.90. The reference range was not used to int erpret this result as normal/abnormal . RECOMMENDED COUMADIN/WARFARIN INR THERAPY RANGESSTANDARD DOSE: 2.0 - 3.0 Includes: PROPHYLAXIS for venous thrombosis, systemic embolization; TREATMENT for venous thrombosis and/or pulmonary embolus.HIGH RISK: Target INR is 2.5-3.5 for patients with mechanical heart valves.CBC W/PLT COUNT & AUTO [id number] 05:29:39 Test Item Value Reference Range Interpretation [...] (BEAKER) (test code = 2801) BASIC METABOLIC [id number] 20:29:00 Test Item Value Reference Range Interpretation [...] S NOT APPLICABLE FOR DIALYSIS PATIEN TS. Flasher Adjuster ID - [id number] 16:56:00 Test Item Value Reference Range Interpretation Comments FERRITIN (BEAKER) (test code = 13.77 ng/mL 5.00-275.00 361) Flasher Adjuster ID - DBHIGH SENSITIVITY TROPONIN [id number] 16:42:00 Test Item Value Reference Range Interpretation Comments HIGH SENSITIVITY 13 pg/ml See_Comment [Automated message] TROPONIN I (test code = The system which [id number]) generated this result transmitted ref erence range: <=35. Th e reference range was not used to int erpret this result as normal/abnormal . Flasher Adjuster ID - DBThe BEARING GRINDER STAT High Sensitivity Troponin-I results should be used in conjunctionwith other diagnostic information such as ECG, clinical observations and information, and patient symptoms to aid in the diagnosis of [place].HIGH SENSITIVITY TROPONIN [id number] 16:41:00 Test Item Value Reference Range Interpretation Comments HIGH SENSITIVITY 15 pg/ml See_Comment [Automated message] TROPONIN I (test code = The system which 1602837) generated this result transmitted ref erence range: <=35. Th e reference range was not used to int erpret this result as normal/abnormal . Flasher Adjuster ID - DBThe BEARING GRINDER STAT High Sensitivity Troponin-I results should be [...] % 20-55 L (test code = 2590) Flasher Adjuster ID - DBHEMOGLOBIN AND [id number] 15:56:00 Test Item Value Reference Range Interpretation Comments HEMOGLOBIN (BEAKER) (test code = 9.2 GM/DL 13.7-17.5 L 410) HEMATOCRIT (BEAKER) (test code = 30.6 % 40.1-51.0 L 411) Flasher Adjuster ID - 6000
[2023-06-17] MEDS ORDERED: GABAPENTIN 300 MG CAP ONE (11:10)
[2023-06-17] MEDS ORDERED: CYCLOBENZAPRINE 10 MG TAB ONE (11:10)
[2023-06-17] MEDS ORDERED: KETOROLAC 30 MG/ML INJ ONE (11:10)
[2023-06-17] MEDS ORDERED: predniSONE 20 MG TAB ONE (11:10)
--- NOTE | 2023-06-17 11:55 | RAD REPORT ---
EXAM DESCRIPTION: CT - C Spine Wo Con - 06/17/2023 11:02 am CLINICAL HISTORY: Right arm radiculopathy COMPARISON: October 2022 x-ray TECHNIQUE: Computed axial tomography of the cervical spine were obtained with sagittal and coronal r econstruction images generated and reviewed. All CT scans are performed using dose optimization technique as appropriate and may include automated exposure control or mA/KV adjustment according to patient size. FINDINGS: Mild anterior subluxation C2 on C3. Slight anterior subluxation C7-T1. These are chronic C5-6 disc is thinned. Uncal vertebral facet hypertrophy is present. Mild to moderate narrowing of lef t neural foramina. 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
--- NOTE | 2023-06-17 12:06 | EDPHYS ---
Physician Documentation [facility] – [place], [place] Name: Oleg Giles Age: 77 yrs Sex: Male : 1945 Arrival Date: 06/17/2023 Time: 10:33 Bed 16 Private MD: Melody Castellano ED Physician Augusto Cassidy HPI: 06/17 10:52 This 77 yrs old Male presents to ER via Ambulatory with complaints of Back rn Pain, Arm Pain. 10:52 The patient or guardian complains of pain. The symptoms are located diffusely. Onset: rn The symptoms/episode began/occurred 1 week(s) ago. Associated signs and symptoms: Pertinent negatives: fever, headache, bladder incontinence, bowel incontinence, weakness. The pain radiates to the right arm. Modifying factors: The symptoms are alleviated by nothing. the symptoms are aggravated by movement. Severity of symptoms: At their worst the symptoms were moderate, in the emergency department the symptoms are unchanged. The patient has experienced similar episodes in the past. The patient has not recently seen a physician. Patient and daughter report neck pain for 1 week, radiates down the right arm with burning sensation. No weakness. No trauma or fall. Has had before and has a known pinched nerve in the neck per daughter. No chest pain or shortness of breath.. 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 - Family history:: not pertinent. - Social history:: Smoking status: unknown. - Hospitalizations: : No recent hospitalization is reported. ROS: 10:52 Constitutional: Negative for fever, chills, and weight loss, Eyes: Negative for injury, rn pain, redness, and discharge, Neck: Positive for neck pain Cardiovascular: Negative for chest pain, palpitations, and edema, Respiratory: Negative for shortness of breath, cough, wheezing, and pleuritic chest pain, Abdomen/GI: Negative for abdominal pain, nausea, vomiting, diarrhea, and constipation, MS/Extremity: Positive for right arm pain Skin: Negative for injury, rash, and discoloration, Neuro: Negative for headache, weakness, numbness, tingling, and seizure, Exam: 10:52 Constitutional: This is a well developed, well nourished patient who is awake, alert, rn and in no acute distress. Head/Face: Normocephalic, atraumatic. Neck: Mild cervical paraspinal tenderness on the right side. Cardiovascular: Regular rate and rhythm. No pulse deficits. Respiratory: No increased work of breathing, no retractions or nasal flaring. Abdomen/GI: Soft, non-tender Skin: Warm, dry MS/ Extremity: Pulses equal, no cyanosis. Neurovascular intact. Full, normal range of motion. Equal circumference. Neuro: Awake and alert, GCS 15, oriented to person, place, time, and situation. Cranial nerves II-XII grossly intact. Motor strength 5/5 in all extremities. Sensory grossly intact. Cerebellar exam normal. 11:16 ECG was reviewed by the Attending Physician. rn Vital Signs: 10:38 BP 147 / 73; Pulse 63; Resp 63; Temp 97.6; Pulse Ox 99% ; Weight 88 kg; os 10:38 BP 147 / 73; Pulse 63; Resp 17; Temp 97.6; Pulse Ox 99% ; Weight 88 kg; os 11:20 BP 125 / 66; Pulse 64; Resp 18; Pulse Ox 100% ; Pain 9/10; nj1 12:09 BP 146 / 72; Pulse 58; Resp 17; Pulse Ox 99% on R/A; Pain 2/10; nj1 12:22 Pain 2/10; nj1 11:20 Pain Scale: Adult nj1 12:09 Pain Scale: Adult nj1 12:22 Pain Scale: Adult nj1 MDM: 10:39 Patient medically screened. rn 12:04 Differential diagnosis: Cervical Disc Herniation Cervical Discogenic Pain Cervical rn Facet Syndrome Cervical Raiculopathy Cervical Spondylosis cervical strain, Spondylosis subluxation, torticollis. Data reviewed: vital signs, nurses notes, radiologic studies, CT scan, and as a result, I will discharge patient. Counseling: I had a detailed discussion with the patient and/or guardian regarding the historical points, exam findings, and any diagnostic results supporting the discharge/admit diagnosis, radiology results, the need for outpatient follow up, to return to the emergency department if symptoms worsen or persist or if there are any questions or concerns that arise at home. Response to treatment: the patient's symptoms have mildly improved after treatment, and as a result, I will discharge patient. Special discussion: I discussed with the patient/guardian in detail that at this point there is no indication for admission to the hospital. It is understood, however, that if the symptoms persist or worsen the patient needs to return immediately for re-evaluation. ED course: I have personally reviewed all of the results, including but not limited to imaging deemed necessary to safely discharge this patient at this time. All results given to and printed out for patient. I personally went over all the results with the patient and answered all questions. Patient will follow-up with PCP and or specialist as discussed. Return precautions given and understood.. 06/17 10:50 Order name: CT C Spine; Complete Time: 11:56 rn 06/17 10:53 Order name: EKG; Complete Time: 10:54 rn 06/17 10:53 Order name: EKG - Nurse/Tech; Complete Time: 11:08 rn EC:16 Rate is 60 beats/min. Rhythm is regular. QRS [place] is Normal. [place] interval is normal. QRS rn interval is prolonged at 122 msec. QT interval is normal. No Q waves. T waves are Normal. No ST changes noted. Clinical impression: NSR w/ Non-specific ST/T Changes. Interpreted by me. Reviewed by me. Administered Medications: 11:20 Drug: Ketorolac IM 15 mg IM once Route: IM; Site: left deltoid; nj1 12:22 Follow up: Pain 2/10 Adult; Response: No adverse reaction nj1 11:20 Drug: Gabapentin PO 300 mg PO once Route: PO; nj1 12:22 Follow up: Response: No adverse reaction nj1 11:20 Drug: Cyclobenzaprine PO 10 mg PO once Route: PO; nj1 12:22 Follow up: Response: No adverse reaction nj1 11:20 Drug: predniSONE PO 60 mg PO once Route: PO; nj1 12:22 Follow up: Response: No adverse reaction nj1 Disposition Summary: 06/17/23 12:05 Discharge Ordered Notes: Location: Home rn Problem: new rn Symptoms: have improved rn Condition: Stable rn Diagnosis - Cervical disc disorder with radiculopathy rn Followup: rn - With: Augusto Cassidy MD - When: As needed - Reason: Recheck today's complaints, Re-evaluation by your physician Discharge Instructions: - Discharge Summary Sheet rn - Cervical Radiculopathy rn Forms: - Medication Reconciliation Form rn - Thank You Letter rn - Antibiotic cook morning - Prescription Opioid Use rn - Patient Portal Instructions rn - Leadership Thank You Letter rn Prescriptions: - Cyclobenzaprine 10 mg Oral tablet - take 1 tablet ORAL route every 8 hours As needed; 20 tablet; Refills: 0, rn Product Selection Permitted - Medrol (Jimbo) 4 mg Oral Tablets, Dose Pack - take 1 tablet ORAL route as directed - follow package instructions; 1 packet; rn Refills: 0, Product Selection Permitted Signatures: Dispatcher [employer] EDAugusto Sheth MD MD rn Jaco, Norma, RN RN nj1 Corrections: (The following items were deleted from the chart) 10:54 10:52 Constitutional: This is a well developed, well nourished patient who is awake, rn alert, and in no acute distress. rn
--- NOTE | 2023-06-17 12:06 | ER ---
Nurse's Notes [facility] Name: Oleg Giles Age: 77 yrs Sex: Male : 1945 Arrival Date: 06/17/2023 Time: 10:33 Bed 16 Private MD: Melody Castellano Diagnosis: Cervical disc disorder with radiculopathy Presentation: 06/17 10:38 Chief complaint: Patient states: Patient c/o right sided neck pain radiating to the os right arm for the past 7 days. Coronavirus screen: Vaccine status: Patient reports receiving the 2nd dose of the covid vaccine. Client denies travel out of the [place] in the last 14 days. At this time, the client does not indicate any symptoms associated with coronavirus-19. Ebola Screen: No symptoms or risks identified at this time. Initial Sepsis Screen: Does the patient meet any 2 criteria? No. Patient's initial sepsis screen is negative. Does the patient have a suspected source of infection? No. Patient's initial sepsis screen is negative. Risk Assessment: Do you want to hurt yourself or someone else? Patient reports no desire to harm self or others. Onset of symptoms was June 10, 2023. 10:38 Method Of Arrival: Ambulatory os 10:38 Acuity: ALEXANDREA 3 os Triage Assessment: 10:42 General: Appears in no apparent distress. Behavior is calm, cooperative, appropriate os for age. Pain: Complains of pain in Right neck radiating to right shoulder \T\ arm. Musculoskeletal: Circulation, motion, and sensation intact. Capillary refill < 3 seconds. 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 - Family history:: not pertinent. - Social history:: Smoking status: unknown. - Hospitalizations: : No recent hospitalization is reported. Screenin:25 [facility] ED Fall Risk Assessment (Adult) Score/Fall Risk Level 0 - 2 = Low Risk nj Oriented to surroundings, Maintained a safe environment, Hourly rounding (assess needs \T\ fall precautionary measures) done. Abuse screen: Denies threats or abuse. Denies injuries from another. Nutritional screening: No deficits noted. Tuberculosis screening: No symptoms or risk factors identified. Assessment: 11:20 General: Appears in no apparent distress. comfortable, Behavior is calm, cooperative, nj1 appropriate for age. 11:20 Pain: Complains of pain in right scapular area Pain currently is 9 out of 10 on a pain nj1 scale. Neuro: Level of Consciousness is awake, alert, obeys commands, Oriented to person, place, time, situation. Cardiovascular: Patient's skin is warm and dry. Respiratory: Airway is patent Respiratory effort is even, unlabored. GI:. Musculoskeletal: Reports pain in right scapular area. 12:21 Reassessment: Patient appears in no apparent distress at this time. Patient and/or nj1 family updated on plan of care and expected duration. Pain level reassessed. Patient is alert, oriented x 3, equal unlabored respirations, skin warm/dry/pink. Patient states feeling better. Patient states symptoms have improved. Vital Signs: 10:38 BP 147 / 73; Pulse 63; Resp 63; Temp 97.6; Pulse Ox 99% ; Weight 88 kg; os 10:38 BP 147 / 73; Pulse 63; Resp 17; Temp 97.6; Pulse Ox 99% ; Weight 88 kg; os 11:20 BP 125 / 66; Pulse 64; Resp 18; Pulse Ox 100% ; Pain 9/10; nj1 12:09 BP 146 / 72; Pulse 58; Resp 17; Pulse Ox 99% on R/A; Pain 2/10; nj1 12:22 Pain 2/10; nj1 11:20 Pain Scale: Adult nj1 12:09 Pain Scale: Adult nj1 12:22 Pain Scale: Adult nj1 ED Course: 10:35 Patient arrived in ED. mr 10:36 Melody Castellano DO is Private Physician. mr 10:38 Augusto Cassidy MD is Attending Physician. rn 10:41 Triage completed. os 10:42 Jazmine Angel, DI is Primary Nurse. nj1 11:00 CT C Spine In Process Unspecified. EDMS 11:23 Arm band placed on. nj1 11:25 No provider procedures requiring assistance completed. nj1 11:26 Patient has correct armband on for positive identification. Bed in low position. Call [facility] light in reach. Adult w/ patient. Provided Education on: call light, fall precautions. 12:05 Augusto Cassidy MD is Referral Physician. rn 12:10 Patient did not have IV access during this emergency room visit. nj1 Administered Medications: 11:20 Drug: Ketorolac IM 15 mg IM once Route: IM; Site: left deltoid; nj1 12:22 Follow up: Pain 2/10 Adult; Response: No adverse reaction nj1 11:20 Drug: Gabapentin PO 300 mg PO once Route: PO; nj1 12:22 Follow up: Response: No adverse reaction nj1 11:20 Drug: Cyclobenzaprine PO 10 mg PO once Route: PO; nj1 12:22 Follow up: Response: No adverse reaction nj1 11:20 Drug: predniSONE PO 60 mg PO once Route: PO; nj1 12:22 Follow up: Response: No adverse reaction nj1 Medication: 12:10 VIS not applicable for this client. nj1 Outcome: 12:05 Discharge ordered by MD. rn 12:10 Discharged to home ambulatory, with family, nj1 12:10 Condition: stable 12:10 Discharge instructions given to patient, family, Instructed on discharge instructions, follow up and referral plans. medication usage, Demonstrated understanding of instructions, follow-up care, medications, Prescriptions given X 1, 12:23 Patient left the ED. nj1 Signatures: Dispatcher [employer] EDTN Lyric Pastor, Reg Reg mr Augusto Cassidy MD MD rn Jaco, Norma, DI RN nj1 Maddi Carpenter RN RN os Corrections: (The following items were deleted from the chart) 12:21 12:09 BP 146 / 72; Pulse 58bpm; Resp 17bpm; Pulse Ox 99% RA; nj1 nj1
[2023-06-17 12:29] VITALS: TEMP 97.6
[2023-06-17 12:31] VITALS: BP 146/72; O2SAT 99
--- NOTE | 2023-06-18 07:51 | EKG ---
Test Date: 2023-06-17 Test Time: 11:07:09 Retail Analytics Manager: RED MEASUREMENT RESULTS: Intervals: Rate: 60 MT: 192 QRSD: 122 QT: 468 QTc: 468 Joanna: P: 24 MT: 192 QRS: -16 T: 138 INTERPRETIVE STATEMENTS: Sinus rhythm with premature supraventricular complexes Left ventricular hypertrophy with QRS widening and repolarization abnormality Abnormal ECG Compared to ECG 04/07/2023 05:22:16 Atrial premature complex(es) now present Ventricular premature complex(es) no longer present Myocardial infarct finding no longer present Electronically Signed On 06-18-23 07:49:46 CDT by Neeraj Andrea
== END 2023-06-17 12:23 | disposition home or self-care (01) ==
LOC: ER 10:33
DX: M50.10 Cervical disc disorder with radiculopathy, unspecified cervical region (principal); I10 Essential (primary) hypertension; Z86.73 Personal history of transient ischemic attack (TIA), and cerebral infarction without residual deficits; Z95.2 Presence of prosthetic heart valve
CPT/HCPCS: 93005; 72125; 96372; 99284; J7512

== ENCOUNTER 2024-02-19 12:09 | Emergency (ER) | payer OTHER ==
--- NOTE | 2024-02-19 12:51 | RAD REPORT ---
EXAM DESCRIPTION: CT - Head Brain Wo Cont - 02/19/2024 12:45 pm CLINICAL HISTORY: HEADACHE Headache, drowsiness COMPARISON: <Comparisons> TECHNIQUE: All CT scans are performed using dose optimization technique as appropriate and may inclu de automated exposure control or mA/KV adjustment according to patient size. FINDINGS: No intracranial hemorrhage, hydrocephalus or extra-axial fluid collection.Mild generalized brain atrophy.No areas of brain edema or evidence of midline shift. The paranasal sinuses and mastoids are clear. The calvarium is intact. IMPRESSION: No acute intracranial abnormality.
[2024-02-19] MEDS ORDERED: NA CHLORIDE 0.9% 1,000 ML ONE (13:01)
--- NOTE | 2024-02-19 13:17 | RAD REPORT ---
EXAM DESCRIPTION: RAD - Chest Single View - 02/19/2024 1:12 pm CLINICAL HISTORY: COUGH Chest pain. COMPARISON: <Comparisons> FINDINGS: Portable technique limits examination quality. The lungs are grossly clear. The heart is upper limit of normal in size. No displaced fractures. IMPRESSION: No acute intrathoracic process suspected.
[2024-02-19 13:40] LABS: Absolute Eosinophils 0.1 K/uL (0-0.5); Absolute Lymphocytes (CBC) 1.4 K/uL (0.7-4.9); Absolute Monocytes 0.5 K/uL (0.1-1.3); Absolute Neutrophil 4.2 K/uL (1.8-8.0); Basophils % 0.5 % (0-1.3); Eosinophils % 1.5 % (0-4.4); Hematocrit 46.7 % (39.6-49.0); Hemoglobin 15.6 g/dL (13.6-17.9); Lymphocytes % 22.3 % (15.3-44.8); MCH 31.1 pg (27.0-35.0); MCHC 33.5 g/dL (32.0-36.0); MPV 8.4 fL (7.6-11.3); Neutrophils % 67.7 % (41.7-73.7); Nucleated Red Blood Cells % 0.1 % (0-0); Platelets 216 thou/uL (152-406); RBC Red Blood Cell Count 5.03 M/uL (4.33-5.43); Red Cell Distribution Width 14.9 % (12.1-15.2)
[2024-02-19 14:08] LABS: Albumin 3.1 g/dL (3.4-5.0); Albumin/Globulin Ratio 0.9 (1.1-1.8); Anion Gap 5.8 mEq/L (5.0-15.0); Bilirubin Direct 0.2 mg/dL (0-0.2); Bilirubin Indirect, Calculated 0.3 mg/dL (0.2-0.8); Bilirubin Total 0.5 mg/dL (0.2-1.0); Globulin 3.3 g/dL (2.3-3.5); Magnesium 2.3 mg/dL (1.6-2.4); Potassium 3.8 mEq/L (3.5-5.1); Protein, Total 6.4 g/dL (6.4-8.2); Troponin High Sensitivity 14.6 pg/mL (<58.9)
[2024-02-19 14:18] LABS: Specific Gravity 1.028 (1.005-1.030); Urine Bilirubin NEGATIVE (Negative); Urine Blood Negative (Negative); Urine Clarity Clear (Clear); Urine Color Light-Yellow (Yellow); Urine Glucose 4+ (Over) (Negative); Urine Ketones NEGATIVE (Negative); Urine Microscopic Reflex YN NO UMIC; Urine Nitrite NEGATIVE (Negative); Urine Protein NEGATIVE (Negative); Urine Urobilinogen Normal (Normal); Urine pH 5.5 (5.0-7.0)
[2024-02-19 14:26] LABS: Protime INR 2.52
[2024-02-19] MEDS ORDERED: NA CHLORIDE 0.9% 500 ML ONE (15:56)
--- NOTE | 2024-02-19 16:36 | RAD REPORT ---
EXAM DESCRIPTION: CT - Head angio - 02/19/2024 4:15 pm CLINICAL HISTORY: headache Headache, drowsiness COMPARISON: <Comparisons> TECHNIQUE: CT angiography of the head was performed with MIPs. All CT scans are performed using dose optimization technique as appropriate and may include automated exposure control or mA/KV adjustment according to patient size. FINDINGS: No evidence of large vessel occlusion. No evidence of aneurysm is detected. No flow-limiti ng stenosis or vascular malformation identified. Antegrade flow is seen in the vertebral arteries. The vertebral arteries are codominant. The visualized dural venous sinuses are patent. IMPRESSION: No significant flow abnormality is detected.
--- NOTE | 2024-02-19 16:38 | RAD REPORT ---
EXAM DESCRIPTION: CT - Neck Angio - 02/19/2024 4:15 pm CLINICAL HISTORY: PAIN Headache, drowsiness COMPARISON: <Comparisons> TECHNIQUE: CT angiography of the neck vessels was performed with MIPs. All CT scans are performed using dose optimization technique as appropriate and may include automated exposure control or mA/KV adjustment according to patient size. FINDINGS: A left aortic arch is identified with normal three vessel configuration of the great vesse ls. No significant flow abnormality is seen of the common carotid bilaterally. Moderate hard plaque is seen in both carotid bulbs. This results in 70-80% stenosis on the right and 50% stenosis on the left based on NASCET criteria. Normal flow is seen within both vertebral arteries. IMPRESSION: Moderately severe bilateral hard plaquing involving both carotid bulbs, greater on the r ight. Moderate to severe right-sided carotid bulb stenosis estimated at 70-80%. NASCET criteria used. Mild 0-49% stenosis Moderate 50-69% stenosis Severe 70-99% stenosis
--- NOTE | 2024-02-19 16:53 | EDPHYS ---
[facility] Name: Oleg G[facility] Age: 78 yrs Sex: Male : 1945 Arrival Date: 02/19/2024 Time: 12:09 Bed 19 Private MD: ED Physician Kyle Courtney HPI: 02/18 15:41 This 78 yrs old Male presents to ER via Ambulatory with complaints of benjamin Headache, General Weakness. 15:41 The patient complains of pain to the top of head, forehead, left frontal area, left benjamin temporal area, right frontal area and right temporal area. The patient describes the headache as aching. Onset: The symptoms/episode began/occurred today. Associated signs and symptoms: Pertinent positives: weakness. Severity of symptoms: At its worst the pain was mild, in the emergency department the pain has improved, mildly. Headache History: The patient has had previous headaches and this one is similar to previous episodes. The symptoms are alleviated by nothing. the symptoms are aggravated by movement. The patient has experienced similar episodes in the past, a few times. Historical: - Allergies: 12:21 No Known Allergies; db - Home Meds: 16:57 aspirin 81 mg Oral cap 1 cap once daily [Active]; atorvastatin 20 mg Oral tab 1 tab mb9 once daily [Active]; docusate sodium 100 mg Oral tablet 1 tabs daily [Active]; ferrous sulfate 325 mg (65 mg iron) Oral tablet 1 tab daily [Active]; losartan 25 mg Oral tab 1 tab once daily [Active]; Lumigan 0.01 % ophthalmic (eye) drops 1 drop daily [Active]; 17:00 warfarin 6 mg Oral tablet 1 tab once [Active]; mb9 - PMHx: 12:21 Atrial fibrillation; Cerebrovascular accident; Heart Murmur; Congestive heart failure; db Hypercholesterolemia; Hypertensive disorder; Pneumonia; - PSHx: 12:21 Cardiac Ablation; Heart Monitor; cataract repair; 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 - Infectious Disease History:: Denies. - Social history:: Smoking status: Patient denies any tobacco usage or history of. - Family history:: not pertinent. ROS: 15:41 Constitutional: Negative for fever, chills, and weight loss, Eyes: Negative for injury, benjamin pain, redness, and discharge, ENT: Negative for injury, pain, and discharge, Neck: Negative for injury, pain, and swelling, Cardiovascular: Negative for chest pain, palpitations, and edema, Respiratory: Negative for shortness of breath, cough, wheezing, and pleuritic chest pain, Abdomen/GI: Negative for abdominal pain, nausea, vomiting, diarrhea, and constipation, Back: Negative for injury and pain, : Negative for injury, bleeding, discharge, and swelling, MS/Extremity: Negative for injury and deformity, Skin: Negative for injury, rash, and discoloration, Psych: Negative for depression, anxiety, suicide ideation, homicidal ideation, and hallucinations, Allergy/Immunology: Negative for hives, rash, and allergies, Endocrine: Negative for neck swelling, polydipsia, polyuria, polyphagia, and marked weight changes, Hematologic/Lymphatic: Negative for swollen nodes, abnormal bleeding, and unusual bruising, 15:41 Neuro: Positive for headache, weakness, Exam: 15:41 Constitutional: This is a well developed, well nourished patient who is awake, alert, benjamin and in no acute distress. Head/Face: Normocephalic, atraumatic. Eyes: Pupils equal round and reactive to light, extra-ocular motions intact. Lids and lashes normal. Conjunctiva and sclera are non-icteric and not injected. Cornea within normal limits. Periorbital areas with no swelling, redness, or edema. ENT: Nares patent. No nasal discharge, no septal abnormalities noted. Tympanic membranes are normal and external auditory canals are clear. Oropharynx with no redness, swelling, or masses, exudates, or evidence of obstruction, uvula midline. Mucous membranes moist. Neck: Trachea midline, no thyromegaly or masses palpated, and no cervical lymphadenopathy. Supple, full range of motion without nuchal rigidity, or vertebral point tenderness. No Meningismus. Chest/axilla: Normal chest wall appearance and motion. Nontender with no deformity. No lesions are appreciated. Cardiovascular: Regular rate and rhythm with a normal S1 and S2. No gallops, murmurs, or rubs. Normal PMI, no JVD. No pulse deficits. Respiratory: Lungs have equal breath sounds bilaterally, clear to auscultation and percussion. No rales, rhonchi or wheezes noted. No increased work of breathing, no retractions or nasal flaring. Abdomen/GI: Soft, non-tender, with normal bowel sounds. No distension or tympany. No guarding or rebound. No evidence of tenderness throughout. Back: No spinal tenderness. No costovertebral tenderness. Full range of motion. Male : Normal genitalia with no discharge or lesions. Skin: Warm, dry with normal turgor. Normal color with no rashes, no lesions, and no evidence of cellulitis. MS/ Extremity: Pulses equal, no cyanosis. Neurovascular intact. Full, normal range of motion. Neuro: Awake and alert, GCS 15, oriented to person, place, time, and situation. Cranial nerves II-XII grossly intact. Motor strength 5/5 in all extremities. Sensory grossly intact. Cerebellar exam normal. Normal gait. Psych: Awake, alert, with orientation to person, place and time. Behavior, mood, and affect are within normal limits. 15:41 ECG was reviewed by the Attending Physician. 15:41 Musculoskeletal/extremity: Pulses: are normal with no appreciated deficits, Sensation intact. Compartment Syndrome exam of affected extremity: is normal. no pain, no numbness, no tingling, no sensation deficit, no palor, no weak pulses, Weight bearing: able to fully bear weight, DVT Exam: No signs of deep vein thrombosis. no pain, no swelling, no tenderness, negative Homans' sign noted on exam, no appreciated bluish discoloration, no erythema, no increased warmth, Vital Signs: 12:18 BP 116 / 63; Pulse 69; Resp 16; Temp 98.2(O); Pulse Ox 96% on R/A; Weight 88 kg; Height db 5 ft. 6 in. ; 15:02 BP 122 / 68; Pulse 58; Resp 16; Pulse Ox 100% on R/A; mb9 16:56 BP 129 / 82; Pulse 62; Resp 18; Pulse Ox 100% on R/A; mb9 12:18 Body Mass Index 31.31 (88.00 kg, 167.64 cm) db NIH Stroke Scale Scores: 15:41 NIHSS Score: 0 benjamin [place] Coma Score: 15:48 Eye Response: spontaneous(4). Motor Response: obeys commands(6). Verbal Response: benjamin oriented(5). Total: 15. MDM: 12:25 Patient medically screened. benjamin 15:48 Differential diagnosis: hypertensive headache, hyponatremia, intracerebral hemorrhage, benjamin migraine, neoplasm, sinusitis, subarachnoid bleed, subdural hematoma, temporal arteritis, tension headache, trigeminal neuralgia, vasomotor headache. Data reviewed: vital signs, nurses notes, lab test result(s), EKG, radiologic studies, CT scan, plain films. Consideration of Admission/Observation Escalation of care including admission/observation considered. I considered the following discharge prescriptions or medication management in the emergency department Medications were administered in the Emergency Department. See MAR. Independent interpretation of the following test(s) in the Emergency Department EKG: See my EKG interpretation above CT Scan: My interpretation is CT HEAD NEG. Test considered but Not performed: Ultrasound NO CAROTID USG. Care significantly affected by the following chronic conditions: Hypertension, Congestive Heart Failure, Obesity, Liver Disease, PNA, HIGH CHOLESTEROL. 02/18 12:27 Order name: Basic Metabolic Panel; Complete Time: 14:17 [facility] 02/18 12:27 Order name: CBC with Diff; Complete Time: 14:17 [facility] 02/18 12:27 Order name: LFT's; Complete Time: 14:17 [facility] 02/18 12:27 Order name: Magnesium; Complete Time: 14:17 [facility] 02/18 12:27 Order name: NT PRO-BNP; Complete Time: 14:17 [facility] 02/18 12:27 Order name: PT-INR; Complete Time: 15:33 [facility] 02/18 12:27 Order name: Troponin HS; Complete Time: 14:17 [facility] 02/18 12:27 Order name: Lipase; Complete Time: 14:17 [facility] 02/18 12:27 Order name: Blood Culture Adult (2) [facility] 02/18 12:27 Order name: Urinalysis w/ reflexes; Complete Time: 15:33 [facility] 02/18 12:27 Order name: XRAY Chest (1 view); Complete Time: 14:17 [facility] 02/18 12:27 Order name: CT Head Brain wo Cont; Complete Time: 14:17 [facility] 02/18 15:40 Order name: CT Neck Angio; Complete Time: 16:54 [facility] 02/18 16:13 Order name: Head angio; Complete Time: 16:54 [facility]MS 02/18 12:27 Order name: EKG; Complete Time: 12:28 [facility] 02/18 12:27 Order name: Cardiac monitoring; Complete Time: 13:10 [facility] 02/18 12:27 Order name: EKG - Nurse/Tech; Complete Time: 13:10 [facility] 02/18 12:27 Order name: IV Saline Lock; Complete Time: 13:10 [facility] 02/18 12:27 Order name: Labs collected and sent; Complete Time: 13:10 [facility] 02/18 12:27 Order name: O2 Per Protocol; Complete Time: 13:10 [facility] 02/18 12:27 Order name: O2 Sat Monitoring; Complete Time: 13: [facility] 02/18 13:36 Order name: Labs - recollect needed: blue top; Complete Time: 14:04 [facility] 02/18 16:59 Order name: Misc. Order: give pt his usual coumadin dose before dc; Complete Time: 17:03[facility] 02/18 17:00 Order name: PO challenge; Complete Time: 17:03 [facility] EC:41 Rate is 65 beats/min. Rhythm is regular. QRS [place] is Normal. [place] interval is normal. QRS benjamin interval is normal. QT interval is normal. No Q waves. T waves are Normal. No ST changes noted. Clinical impression: NSR w/ Non-specific ST/T Changes, Abnormal EKG without significant change, and No evidence of ischemia. Interpreted by me. Reviewed by me. Administered Medications: 13:34 Drug: NS 0.9% IV 1000 ml IV at 125 ml/hr continuous Route: IV; Rate: 125 ml/hr; Site: mb9 left forearm; 15:58 Drug: NS 0.9% IV 500 ml IV at bolus once Route: IV; Rate: bolus; Site: left forearm; mb9 16:58 Follow up: Response: No adverse reaction; IV Status: Completed infusion mb9 17:03 Drug: Warfarin PO 5 mg PO once Route: PO; mb9 Disposition Summary: 02/19/24 16:53 Discharge Ordered Notes: Location: Home benjamin Problem: new benjamin Symptoms: have improved benjamin Condition: Stable benjamin Diagnosis - Weakness benjamin - Headache benjamin - Syncope Near benjamin - Occlusion and stenosis of bilateral carotid arteries - 70-80 % moderate to severe benjamin right carotid bulb stenosis - 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 - coumadin INR 2.52 benjamin Followup: benjamin - With: Private Physician - When: 2 - 3 days - Reason: Recheck today's complaints, Continuance of care, Re-evaluation by your physician Followup: benjamin - With: Neeraj Andrea MD - When: 2 - 3 days - Reason: Recheck today's complaints, Re-evaluation by your physician Discharge Instructions: - Discharge Summary Sheet benjamin - General Headache Without Cause benjamin - Near-Syncope benjamin - Weakness benjamin - Near-Syncope, [id number] benjamin - Weakness, Pmxh-ua-Cdiy benjamin - General Headache Without Cause, Txmi-nz-Wwty benjamin - Atrial Fibrillation, Usnd-th-Eyaa benjamin - Deconditioning benjamin - Carotid Artery Disease benjamin - Carotid Artery Disease, Caqq-lz-Muda benjamin Forms: - Medication Reconciliation Form benjamin - Antibiotic Education benjamin - Prescription Opioid Use benjamin - Patient Portal Instructions benjamin - Leadership Thank You Letter benjamin NIH Stroke Scale - NIH Stroke Score Date: 02/19/2024 Time: 15:41 Total Score = 0 10. Dysarthria (speech clarity - read or repeat words) - 0(Normal) 11. Extinction and Inattention (visual/tactile/auditory/spatial/personal) - 0(No abnormality) 1a. Level of Consciousness (LOC) - 0(Alert) 1b. Level of Consciousness (LOC) (Month \T\ Age) - 0(Both) 1c. LOC Commands (Open \T\ Closes Eyes/Postal Support Employee) - 0(Both) 2. Best Gaze (Lateral Gaze Paresis) - 0(Normal) 3. Visual Field Loss - 0(No visual loss) 4. Facial Palsy - 0(Normal) 5a. Left Arm: Motor (10-second hold) - 0(No drift) 5b. Right Arm: Motor (10-second hold) - 0(No drift) 6a. Left Leg: Motor (5-second hold - always test supine) - 0(No drift) 6b. Right Leg: Motor (5-second hold - always test supine) - 0(No drift) 7. Limb Ataxia (finger/nose \T\ heel/low - test with eyes open) - 0(Absent) 8. Sensory Loss (pinprick arms/legs/face) - 0(Normal) 9. Best Language: Aphasia (description/naming/reading) - 0(No aphasia) Initials: benjamin Signatures: Dispatcher [employer] Kyle Ritter MD MD cha Benton, Danielle, RN RN db Lyric Vargas RN RN mb9 Petra Vaz6 Corrections: (The following items were deleted from the chart) 12:28 12:27 BASIC METABOLIC PANEL+C.LAB.BRZ ordered. EDMS EDMS 12 12: CBC+H.LAB.BRZ ordered. EDMS EDMS 12:27 HEPATIC FUNCTION+C.LAB.BRZ ordered. EDMS EDMS 12:27 MAGNESIUM+C.LAB.BRZ ordered. EDMS EDMS 12 12:27 PROBNP+C.LAB.BRZ ordered. EDMS EDMS 12:27 PROTIME (+INR)+COAG.LAB.BRZ ordered. EDMS EDMS 12:27 Troponin High Sensitivity+C.LAB.BRZ ordered. EDMS EDMS 12: 12:27 LIPASE+C.LAB.BRZ ordered. EDMS EDMS 12:27 BLOOD CULTURE*+BA.LAB.BRZ ordered. EDMS EDMS : 12:27 Urinalysis+U.LAB.BRZ ordered. EDMS EDMS
--- NOTE | 2024-02-19 16:53 | ER ---
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 STATES HAS HEADACHE db THAT STARTED LAST NIGHT. STATES STARTED NEW CARDIAC MEDICATION X 1 MONTH. 12:17 Coronavirus screen: Client denies travel out of the [place] in the last 14 days. At this db time, the client does not indicate any symptoms associated with coronavirus-19. Ebola Screen: Patient negative for fever greater than or equal to 101.5 degrees Fahrenheit, and additional compatible Ebola Virus Disease symptoms Patient denies exposure to infectious person. Patient denies travel to an Ebola-affected area in the 21 days before illness onset. No symptoms or risks identified at this time. 12:17 Method Of Arrival: Ambulatory db 12:18 Initial Sepsis Screen: Does the patient meet any 2 criteria? No. Patient's initial db sepsis screen is negative. Does the patient have a suspected source of infection? No. Patient's initial sepsis screen is negative. Risk Assessment: Do you want to hurt yourself or someone else? Patient reports no desire to harm self or others. Onset of symptoms was February 12, 2024. 12:18 Acuity: ALEXANDREA 2 db Triage Assessment: 12:21 General: Appears in no apparent distress. comfortable, Behavior is calm, cooperative. db Pain: Complains of pain in head. Neuro: Level of Consciousness is awake, alert, obeys commands, Oriented to person, place, time, situation, Speech is normal. Respiratory: Airway is patent Respiratory effort is even, unlabored, Respiratory pattern is regular, symmetrical. Historical: - Allergies: 12:21 No Known Allergies; db - Home Meds: 16:57 aspirin 81 mg Oral cap 1 cap once daily [Active]; atorvastatin 20 mg Oral tab 1 tab mb9 once daily [Active]; docusate sodium 100 mg Oral tablet 1 tabs daily [Active]; ferrous sulfate 325 mg (65 mg iron) Oral tablet 1 tab daily [Active]; losartan 25 mg Oral tab 1 tab once daily [Active]; Lumigan 0.01 % ophthalmic (eye) drops 1 drop daily [Active]; 17:00 warfarin 6 mg Oral tablet 1 tab once [Active]; mb9 - PMHx: 12:21 Atrial fibrillation; Cerebrovascular accident; Heart Murmur; Congestive heart failure; db Hypercholesterolemia; Hypertensive disorder; Pneumonia; - PSHx: 12:21 Cardiac Ablation; Heart Monitor; cataract repair; 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 - Infectious Disease History:: Denies. - Social history:: Smoking status: Patient denies any tobacco usage or history of. - Family history:: not pertinent. Screenin:53 [facility] ED Fall Risk Assessment (Adult) History of falling in the last 3 months, mb9 including since admission No falls in past 3 months (0 pts) Confusion or Disorientation No (0 pts) Intoxicated or Sedated No (0 pts) Impaired Gait No (0 pts) Mobility Assist Device Used No (0 pt) Altered Elimination No (0 pt) Score/Fall Risk Level 0 - 2 = Low Risk Oriented to surroundings, Maintained a safe environment, Educated pt \T\ family on fall prevention, incl call for assistance when getting out of bed. Abuse screen: Denies threats or abuse. Nutritional screening: No deficits noted. Tuberculosis screening: No symptoms or risk factors identified. Assessment: 13:52 General: Appears in no apparent distress. Behavior is calm, cooperative. Pain: Denies mb9 pain. Neuro: Lainez Agitation-Sedation Scale (RASS): 0 - Alert and Calm Level of Consciousness is awake, alert, obeys commands, Oriented to person, place, time, situation, Appropriate for age. Neuro: Reports weakness in entire body. Cardiovascular: Patient's skin is warm and dry. Respiratory: Airway is patent Respiratory effort is even, unlabored, Respiratory pattern is regular, symmetrical. GI: Abdomen is round non-distended, Bowel sounds present X 4 quads. Abd is soft and non tender X 4 quads. : No signs and/or symptoms were reported regarding the genitourinary system. EENT: No signs and/or symptoms were reported regarding the EENT system. Derm: Skin is pink, warm \T\ dry. Musculoskeletal: Range of motion: intact in all extremities. 14:58 Reassessment: No changes from previously documented assessment. Patient and/or family mb9 updated on plan of care and expected duration. Pain level reassessed. Patient is alert, oriented x 3, equal unlabored respirations, skin warm/dry/pink. 16:25 Reassessment: No changes from previously documented assessment. Patient and/or family mb9 updated on plan of care and expected duration. Pain level reassessed. Patient is alert, oriented x 3, equal unlabored respirations, skin warm/dry/pink. Vital Signs: 12:18 BP 116 / 63; Pulse 69; Resp 16; Temp 98.2(O); Pulse Ox 96% on R/A; Weight 88 kg; Height db 5 ft. 6 in. ; 15:02 BP 122 / 68; Pulse 58; Resp 16; Pulse Ox 100% on R/A; mb9 16:56 BP 129 / 82; Pulse 62; Resp 18; Pulse Ox 100% on R/A; mb9 12:18 Body Mass Index 31.31 (88.00 kg, 167.64 cm) db [place] Coma Score: 15:48 Eye Response: spontaneous(4). Motor Response: obeys commands(6). Verbal Response: benjamin oriented(5). Total: 15. NIH Stroke Scale Scores: 15:41 NIHSS Score: 0 benjamin ED Course: 12:12 Patient arrived in ED. ra3 12:21 Triage completed. db 12:22 Arm band placed on. db 12:25 Kyle Courtney MD is Attending Physician. benjamin 12:47 CT Head Brain wo Cont In Process Unspecified. EDMS 12:55 Lyric Vargas, DI is Primary Nurse. mb9 13:13 XRAY Chest (1 view) In Process Unspecified. EDMS 13:35 Initial lab(s) drawn, by me, sent to lab. Inserted saline lock: 22 gauge in left mb9 forearm, using aseptic technique. Blood collected. 13:53 Placed in gown. Bed in low position. Call light in reach. Side rails up X 1. Provided mb9 Education on: press call light if needing anything. Client placed on continuous cardiac and pulse oximetry monitoring. NIBP monitoring applied. hall monitor on. Door closed. Noise minimized. Warm blanket given. Pillow given. 13:53 No provider procedures requiring assistance completed. mb9 16:17 CT Neck Angio In Process Unspecified. EDMS 16:17 Head angio In Process Unspecified. EDMS 16:51 Neeraj Andrea MD is Referral Physician. benjamin 17:20 IV discontinued, intact, bleeding controlled, No redness/swelling at site. Pressure mb9 dressing applied. Administered Medications: 13:34 Drug: NS 0.9% IV 1000 ml IV at 125 ml/hr continuous Route: IV; Rate: 125 ml/hr; Site: mb9 left forearm; 15:58 Drug: NS 0.9% IV 500 ml IV at bolus once Route: IV; Rate: bolus; Site: left forearm; mb9 16:58 Follow up: Response: No adverse reaction; IV Status: Completed infusion mb9 17:03 Drug: Warfarin PO 5 mg PO once Route: PO; mb9 Medication: 13:53 VIS not applicable for this client. mb9 Outcome: 16:53 Discharge ordered by . benjamin 17:20 Discharged to home ambulatory, with family, mb9 17:20 Condition: stable 17:20 Discharge instructions given to patient, family, Instructed on discharge instructions, follow up and referral plans. Demonstrated understanding of instructions, follow-up care, 17:23 Patient left the ED. mb9 NIH Stroke Scale - NIH Stroke Score Date: 02/19/2024 Time: 15:41 Total Score = 0 10. Dysarthria (speech clarity - read or repeat words) - 0(Normal) 11. Extinction and Inattention (visual/tactile/auditory/spatial/personal) - 0(No abnormality) 1a. Level of Consciousness (LOC) - 0(Alert) 1b. Level of Consciousness (LOC) (Month \T\ Age) - 0(Both) 1c. LOC Commands (Open \T\ Closes Eyes/Upper Marker) - 0(Both) 2. Best Gaze (Lateral Gaze Paresis) - 0(Normal) 3. Visual Field Loss - 0(No visual loss) 4. Facial Palsy - 0(Normal) 5a. Left Arm: Motor (10-second hold) - 0(No drift) 5b. Right Arm: Motor (10-second hold) - 0(No drift) 6a. Left Leg: Motor (5-second hold - always test supine) - 0(No drift) 6b. Right Leg: Motor (5-second hold - always test supine) - 0(No drift) 7. Limb Ataxia (finger/nose \T\ heel/low - test with eyes open) - 0(Absent) 8. Sensory Loss (pinprick arms/legs/face) - 0(Normal) 9. Best Language: Aphasia (description/naming/reading) - 0(No aphasia) Initials: benjamin Signatures: Dispatcher [employer] EDKyle Arceo MD MD cha Benton, Danielle RN RN db Lyric Vargas RN RN mb9 Beckie Stewart ra3 Corrections: (The following items were deleted from the chart) 12:17 12:16 Chief complaint: Patient states: WEAKNESS AND DIZZINESS X 1 WEEK. STATES db HAS HEADACHE THAT STARTED LAST NIGHT db
[2024-02-19] MEDS ORDERED: WARFARIN SODIUM 5 MG TAB ONE (17:02)
[2024-02-19 18:44] VITALS: BP 129/82; TEMP 98.2; O2SAT 100
== END 2024-02-19 17:23 | disposition home or self-care (01) ==
LOC: ER 12:09
DX: R53.1 Weakness (principal); R51.9 Headache, unspecified; R55 Syncope and collapse; I65.23 Occlusion and stenosis of bilateral carotid arteries; Z79.01 Long term (current) use of anticoagulants; I10 Essential (primary) hypertension; I48.91 Unspecified atrial fibrillation; Z86.73 Personal history of transient ischemic attack (TIA), and cerebral infarction without residual deficits; Z79.82 Long term (current) use of aspirin
CPT/HCPCS: 87040 ×2; 85025; 80048; 36415; 83735; 85610; 80076; 81003; 84484; 83690; 83880; 70450; 70496; 70498; 71045; 96360; 99285; Q9967; J7040; J7030